=== PATIENT | female | born 1950 | race Caucasian/White ===

== ENCOUNTER 2020-01-03 10:36 | Outpatient (CLI) | payer MEDICARE, SELFPAY ==
--- NOTE | ~2020-01-03 | MR_ITS ---
EXAMINATION: MR shoulder LT wo con DATE: 01/03/2020 11:47 INDICATION: Left shoulder pain TECHNIQUE: Magnetic resonance imaging (MRI) of the left shoulder was performed without intravenous co ntrast. Sequences included axial PD-weighted FS FSE, coronal oblique PD-weighted FS FSE, coronal obli que T2-weighted FS FSE, sagittal PD-weighted FS FSE, and sagittal T1-weighted SE. COMPARISON: None. FINDINGS: Coracoacromial arch: The acromion undersurface is curved in morphology (type II). The coracoacromial ligament is normal. M ild acromioclavicular osteoarthritis. Rotator cuff: Filippo supraspinatus and infraspinatus tendinopathy. There is a predominantly articular sided rotato r cuff tear along the superior and midportion of the middle facet footplate involving the entire supr aspinatus tendon and extending posteriorly to involve the conjoined portion of the anterior infraspin atus tendon. Throughout the majority of the tear this involves between one third and up to one half o f the tendon thickness. There does appear to be a similar involvement of the bursal surface with a ve ry small full-thickness perforation at the anteriormost distal supraspinatus tendon. The teres minor tendon is normal. There is mild fatty atrophy of the supraspinatus and infraspinatus muscle bellies. There is severe tendinopathy of the distal subscapularis tendon. There is a partial-thickness tear in volving a significant portion of the cephalad two thirds of the lesser tuberosity footplate. Tear mar gin along the articular side of the tendon can be seen retracted slightly medial to the level of the rim of the glenoid. The lateral side of the tear either whether directly at the footplate proper with some still attached mehta material is difficult to ascertain as the footplate appears to be partially covered by the subluxed but severely frayed and tendinopathic long head of the biceps tendon. The mor e caudal muscular attachment of the subscapularis tendon along the inferior lesser tuberosity appears to remain intact. There is corresponding moderate fatty atrophy of the cephalad two thirds of the avalos bscapularis muscle belly which relatively spares the caudal third of the muscle belly. Biceps tendon, glenoid labrum and glenohumeral cartilage: Severe tendinopathy and longitudinal split tearing of the long head biceps tendon which is presumed d etailed appears subluxed across the medial rim of the intertubercular groove. The tendon however appe ars to remain contiguous with the glenoid anchor with no clearly defined tear margin appreciated. Adrianna bular appearance and irregular increased intrasubstance signal along the inferior glenoid consistent with likely degenerative tearing. There appear to be a couple tiny para labral cyst at the 5:00 posit ion of the anteroinferior glenoid. The superior and posterior labrum appear relatively spared. Partia l-thickness cartilage loss with relatively smooth chondral surface along the cephalad third of the gl enoid. There appears to be chondral swelling with mild increased cartilage signal at the inferior thi rd but with smooth appearing surface and without discrete fissuring. Persistent partial thickness cho ndral ulceration without degenerative subchondral changes at the humeral head situated between the ap ex and the greater tuberosity. Fluid: Small glenohumeral joint effusion. No loose osteochondral bodies. Synovitis and small amount of fluid in the long head biceps tendon sheath consistent with bicipital tenosynovitis. There is a small-to-m oderate amount of fluid in the subacromial/subdeltoid bursa which could be related to bursitis or dec ompression of fluid from the glenohumeral effusion through the full-thickness supraspinatus tendon pe rforation. Bones: Bone alignment is normal. No fracture or pathologic marrow replacing process. IMPRESSION: 1. Severe subscapularis and moderate supras
== END 2020-01-03 10:37 | disposition home or self-care (01) ==
PROVIDERS: PCP Family Medicine; Visit Provider Orthopaedic Surgery
DX: M75.102 Unspecified rotator cuff tear or rupture of left shoulder, not specified as traumatic (principal); M75.22 Bicipital tendinitis, left shoulder; M75.82 Other shoulder lesions, left shoulder
CPT/HCPCS: 73221

== ENCOUNTER 2020-02-09 09:14 | Emergency (ER) | payer MEDICARE, SELFPAY ==
--- NOTE | ~2020-02-09 | XR_ITS ---
XR knee LT min 4V 02/09/2020 10:11 Indication: Right knee pain Procedure: 4 views right knee Comparison: 10/26/2006 Findings: There is a right total knee arthroplasty. No fracture or traumatic malalignment. Prosthesis well seated. Small knee effusion. Impression: 1: No acute fracture. Reviewed, dictated and finalized at location A. Impression: 1: No acute fracture.
--- NOTE | ~2020-02-09 | CT_ITS ---
EXAMINATION: CT brain wo con DATE: 02/09/2020 10:04 INDICATION: Head injury on Coumadin TECHNIQUE: Computed tomography (CT) of the head was performed without intravenous contrast. Sagittal and coronal reconstructions were performed. The mA was adjusted according to patient size. Iterative reconstruction technique was employed. The dose-length product was 605.33 mGy-cm. COMPARISON: head CT dated 06/24/2019 FINDINGS: Large anterior left frontal scalp hematoma with swelling extending into the preseptal soft tissues at the left orbit. No post septal inflammatory stranding. Bilateral orbits are otherwise unremarkable w ith intact appearing globes and changes of bilateral intraocular lens replacements. No fracture. No a cute intracranial hemorrhage, acute infarction or abnormal extra axial fluid collection. There is mil d scattered white matter hypoattenuation consistent with chronic small vessel ischemic disease. Vent ricles are normal and symmetric. No mass/mass effect. Intracranial calcified cerebral atherosclerosis is noted. The mastoid air cells and middle ear cavities are clear. Mild mucosal thickening in the po sterior right ethmoid sinus. IMPRESSION: 1. Large anterior left frontal scalp hematoma. No fracture or acute intracranial process. 2. Mild scattered white matter hypoattenuation consistent with chronic small vessel ischemic disease. Reviewed, dictated and finalized at location A. IMPRESSION: 1. Large anterior left frontal scalp hematoma. No fracture or acute intracrania l process. 2. Mild scattered white matter hypoattenuation consistent with chronic small ve ssel ischemic disease.
--- NOTE | ~2020-02-09 | CT_ITS ---
EXAMINATION: 1. CT facial & cervical spine wo DATE: 02/09/2020 10:05 INDICATION: All with head injury and hematoma to the left forehead. TECHNIQUE: 1. Computed tomography (CT) of the maxillofacial region and of the cervical spine were performed with out intravenous contrast. Sagittal and coronal reconstructions of both regions were obtained. Automat ed exposure control and iterative reconstruction technique were employed. The dose-length product was 428 mGy-cm. COMPARISON: None. FINDINGS: Maxillofacial CT: Large anterior left frontal scalp hematoma. Comminuted fractures of the left and right nasal bones wi th 1.5 mm left lateral displacement of the left nasal bone fracture and mild leftward angulation of t he right nasal bone fracture. No other fractures identified. Normal alignment at the temporomandibula r joints. Mild preseptal swelling at the left orbit. No post septal inflammatory stranding. Bilateral orbits are otherwise unremarkable with intact appearing globes and changes of bilateral intraocular lens replacements. Mild mucosal thickening the right ethmoid and sphenoid sinuses. Cervical spine CT: Alignment is normal. C5-C6 anterior spinal fusion with interbody bone graft and anterior plate and sc rew fixation. Vertebral body heights are normal. No acute fracture. Moderate disc height loss at C6-C 7 and C7-T1 and mild disc height loss at C2-C3 through C4-C5 and at T1-T2. Cervical soft tissues are unremarkable. Mosaic attenuation at the apices most likely secondary to atelectasis or mild pulmonary edema although differential includes pneumonia. The following disc levels are specifically discussed : C2-C3: Eccentric to the right posterior disc osteophyte complex. There is moderate bilateral uncovert ebral joint osteoarthritis. There is mild right and severe left facet joint osteoarthritis. There is mild left neural foraminal stenosis. There is mild central canal stenosis. C3-C4: Disc is bulging. There is moderate bilateral uncovertebral joint osteoarthritis. There is mild to moderate right and severe left facet joint osteoarthritis. There is mild right and moderate left neural foraminal stenosis. There is mild central canal stenosis. C4-C5: Disc is mildly bulging. There is mild bilateral uncovertebral joint osteoarthritis. There is m ild right and severe left facet joint osteoarthritis. There is mild left neural foraminal stenosis. T here is minimal central canal stenosis. C5-C6: Disc space is fused with posterior endplate and prominent bilateral hypertrophic uncovertebral osteophytes. There is mild right and moderate left facet joint osteoarthritis. There is moderate cristin ateral neural foraminal stenosis. There is mild central canal stenosis. C6-C7: Prominent posterior disc osteophyte complex. There is severe bilateral uncovertebral joint ost eoarthritis. There is moderate bilateral facet joint osteoarthritis. There is mild left and mild to m oderate right neural foraminal stenosis. There is mild central canal stenosis. C7-T1: Small posterior disc osteophyte complex. There is mild bilateral uncovertebral joint osteoarth ritis. There is moderate bilateral facet joint osteoarthritis. There is minimal bilateral neural fora lydia stenosis. There is minimal central canal stenosis. IMPRESSION: 1. Widely displaced and angulated comminuted the lateral nasal bone fractures. 2. Moderate to severe cervical spondylosis with C5-6 instrumented anterior spinal fusion. No acute os seous abnormality. 3. Mosaic attenuation at the apices of lungs which could represent atelectasis, mild pulmonary edema or less likely pneumonia. Reviewed, dictated and finalized at location A.
[2020-02-09 09:19] VITALS: BP 163/119; PULSE 108; RESP 18; TEMP 36.6; O2SAT 97
--- NOTE | 2020-02-09 09:52 | ED.FALL ---
HPI - Fall General Chief Complaint: Fall Stated Complaint: Fall Time Seen by Provider: 02/09/20 09:44 Source: patient Mode of arrival: ambulatory Limitations: no limitations History of Present Illness HPI Narrative: This patient is 69 year old female with history of afib on coumadin who presents for evaluation of head injury. Patient states she tripped causing her to hit head head. She reports epistaxis for left nostril and a forehead hematoma. She denies LOC but she reports nausea and severe headache. She also reports neck pain and left knee pain. She was going to [facility] to get INR checked today. complaint: fall Related Data Home Medications Medication Instructions Recorded Confirmed aspirin 81 mg tablet,delayed 81 mg PO DAILY 07/04/19 01/05/20 release compression socks, medium #1 each 07/04/19 01/05/20 leflunomide 20 mg tablet 20 mg PO DAILY 07/04/19 01/05/20 magnesium oxide 400 mg PO DAILY 07/04/19 01/05/20 nitroglycerin 0.4 mg sublingual 0.4 mg SUBLINGUAL Q5M PRN 07/04/19 01/05/20 tablet budesonide 180 mcg/actuation 2 inhalation INHALATION QAM 07/20/19 01/05/20 breath activated powder inhaler meclizine 25 mg tablet 25 mg PO TID 07/20/19 01/05/20 Allergies Allergy/AdvReac Type Severity Reaction Status Date / Time codeine Allergy Unknown Unknown Verified 02/09/20 09:14 levofloxacin Allergy Unknown Unknown Verified 02/09/20 09:14 lisinopril Allergy Unknown Unknown Verified 02/09/20 09:14 Review of Systems Review of Systems: All systems reviewed & are unremarkable except as noted in HPI and below Constitutional: Constitutional: Denies weakness Eyes: Eyes: Denies change in vision ENT: Denies dizziness and Reports epistaxis Respiratory: Respiratory: Denies cough and Denies dyspnea Gastrointestinal: Gastrointestinal: Denies abdominal pain and Reports nausea Neurologic: Reports headache(s), Denies focal weakness and Denies numbness Hematologic/Lymphatic: Hematologic/Lymphatic: Denies easy bleeding Allergic/Immunologic: Allergic/Immunologic: Denies lip swelling, Denies tongue swelling and Denies wheezing PMFSH Social History Social History Smoking status: Never smoker Alcohol intake: current Gender identity (if verbalized by the patient): Female Exam Narrative: Exam Narrative: GENERAL: Well-appearing, well-nourished, and in no acute distress. HEAD: Normocephalic, left large forehead hematoma EYES: PERRLA and EOMI, conjunctiva clear without discharge EARS: TM's clear bilaterally without erythema or dullness NOSE: Nares clear, no rhinorrhea; dry in left nare but no active bleeding THROAT:Mucous membranes moist, Oropharynx normal without erythema, exudate, peritonsillar swelling or fluctuance NECK: Supple, without lymphadenopathy or mass RESPIRATORY: No respiratory distress, Airway patent, Respirations non-labored, Clear to auscultation without rales, rhonchi or wheeze HEART: Regular rate and rhythm. No murmur heard. Normal peripheral pulses. ABDOMEN: Soft, nontender, nondistended, normal active bowel sounds. No masses. No rebound or guarding, No organomegaly. EXTREMITIES: No edema, normal strength with full range of motion. ecchymosis to left anterior knee, no swelling SKIN: Warm, dry, normal color without rash NEURO: Alert and oriented x3. CN 2-12 grossly intact. No focal deficits. PSYCH: Normal mood and affect. Course Reevaluation(s) Reevaluation #1: I was going to talk to patient about discharge and nursing staff reports she is vomiting. Will order phenergan Date: 02/09/20 Time: 13:38 Reevaluation #2: Patient states she feels better and she is ready for discharge home. I discussed return precautions with and patient given the fact she takes coumadin. Date: 02/09/20 Time: 15:29 Consultations Consultation #1: I Discussed case with Dr. Arreguin who agrees to follow up with patient. Date: 02/09/20 Time: 13:38 V
[2020-02-09] MEDS: ONDANSETRON INJ 4 MG/2 ML VIAL IV PUSH ×2 (10:28→12:35)
[2020-02-09 10:44] LABS: Basophils Absolute Auto 0.1 K/mm3 (0.0-0.1); Eosinophils Absolute Auto 0.6 K/mm3 (0-0.3); Eosinophils Percent Auto 5.3 % (0-4.4); Hematocrit 41.4 % (37.0-47.0); Hemoglobin 13.3 g/dL (12.0-15.0); Immature Granulocyte Absolute 0.05 K/mm3 (0.00-0.031); Immature Granulocyte Percent A 0.5 % (0-0.5); Lymphocytes Absolute Auto 1.17 K/mm3 (0.9-3.2); Lymphocytes Percent Auto 11.3 % (18.3-44.2); Mean Corpuscular HGB Conc 32.1 g/dl (32-36); Mean Corpuscular Hemoglobin 27.7 pg (26-34); Mean Corpuscular Volume 86.1 fl (80-100); Mean Platelet Volume 10.6 fl (7.4-10.4); Monocytes Absolute Auto 1.1 K/mm3 (0.1-0.6); Monocytes Percent Auto 10.5 % (2.6-8.5); Neutrophils Absolute Auto 7.4 K/mm3 (1.3-6.7); Neutrophils Percent Auto 71.4 % (45.5-73.1); Platelet Count Result 262 k/mm3 (150-375); Red Blood Count 4.81 M/mm3 (4.2-5.4); Red Cell Distribution Width 19.8 % (11.5-14.5); White Blood Count 10.3 K/mm3 (4.5-10.0)
[2020-02-09 10:54] LABS: INR 1.9; Prothrombin Time 21.6 Seconds (11.1-14.7)
[2020-02-09 10:57] LABS: Alanine Aminotransferase 19 U/L (4-35); Albumin Level 3.8 g/dL (3.5-5.1); Alkaline Phosphatase 97 U/L (38-126); Aspartate Amino Transferase 38 U/L (14-36); Bilirubin,Total 0.7 mg/dL (0.2-1.3); Blood Urea Nitrogen 16 mg/dL (7-17); Calcium 8.7 mg/dL (8.4-10.2); Carbon Dioxide 29 mmol/L (22-30); Chloride 99 mmol/L (98-107); Estimated CRCL calculation 85 ml/min; Estimated Glomerular Filt Rate > 60; Glucose 164 mg/dL (65-105); Potassium 3.3 mmol/L (3.4-5.0); Sodium 130 mmol/L (137-145)
[2020-02-09] MEDS: HYDROMORPHONE HCL 1 MG/ML INJ 0.5 MG IV PUSH (12:35)
--- NOTE | 2020-02-09 13:30 | PC.NURSE ---
when pt given meal tray pt vomited. phenergan given per order.
[2020-02-09] MEDS: PROMETHAZINE HCL 25 MG/ML AMPUL 12.5 MG IV PUSH (13:50)
[2020-02-09 14:09] VITALS: BP 159/109; PULSE 102; RESP 16; O2SAT 88
[2020-02-09 14:21] VITALS: RESP 16
--- NOTE | 2020-02-09 14:22 | PC.NURSE ---
pt drowsy. pulaw ox decreased to 88% ra. 2l nc placed. as conversing with pt pulse ox increased to lower 90's
[2020-02-09 15:45] VITALS: BP 161/71; PULSE 71; RESP 16
== END 2020-02-09 15:45 | disposition home or self-care (01) ==
PROVIDERS: Emergency Provider General Practice; PCP Family Medicine
DX: S00.83XA Contusion of other part of head, initial encounter (principal); S02.2XXA Fracture of nasal bones, initial encounter for closed fracture; I48.91 Unspecified atrial fibrillation; Z79.01 Long term (current) use of anticoagulants; Z79.82 Long term (current) use of aspirin; M47.812 Spondylosis without myelopathy or radiculopathy, cervical region; Z98.1 Arthrodesis status; R91.8 Other nonspecific abnormal finding of lung field; W01.0XXA Fall on same level from slipping, tripping and stumbling without subsequent striking against object, initial encounter
CPT/HCPCS: 36415; 70450; 70486; 72125; 73564; 80053; 85025; 85610; 85730; 86850; 86900; 86901; 96374; 96375; 96376; 99284; J0131; J1170; J2405; J2550

== ENCOUNTER 2021-03-09 04:08 | Emergency (ER) | payer MEDICARE, SELFPAY ==
[2021-03-09] VITALS (8 sets, daily range): BP systolic 136–149; BP diastolic 70–114; PULSE 61–91; RESP 23–24; TEMP 36.6; O2SAT 94–97
--- NOTE | ~2021-03-09 | XR_ITS ---
EXAMINATION: XR chest 1V portable DATE: 03/09/2021 05:11 INDICATION: Dizziness. TECHNIQUE: A single frontal view of the chest was obtained. COMPARISON: Chest 2 views 07/19/2019, chest CT 06/26/2019 FINDINGS: A calcified right lung nodule is consistent with old granulomatous disease. No pleural effu juan or pneumothorax. The heart size is normal. There are changes of mitral valve replacement. There is a right shoulder arthroplasty. There are changes of anterior fusion procedure in cervical spine. IMPRESSION: 1. No acute cardiopulmonary disease. Reviewed, dictated and finalized at location A.
--- NOTE | 2021-03-09 04:23 | ECG_ITS ---
Measurements Intervals [place] Rate: 62 P: 94 [place]: 194 QRS: -6 QRSD: 94 T: 37 QT: 383 QTc: 389 Interpretive Statements SINUS RHYTHM BASELINE ARTIFACT- II, III, AVF, V3-V6 NORMAL ECG Electronically Signed On 03-09-2021 6:50:01 CDT by Miky Sorensen D.O.
--- NOTE | 2021-03-09 04:50 | ED.GENADULT ---
HPI - General Adult General Chief complaint: Unspecified Stated complaint: Cold sweats while having a BM. Time Seen by Provider: 03/09/21 04:11 Source: RN notes reviewed History of Present Illness HPI narrative: Patient presents emergency department from home for diaphoresis. Patient states she awoke and was laying in bed and felt like she needed to use the restroom. She states that with that she had a tingling in her bilateral arms and upper body states she then went up to use the restroom and as she was using the restroom going both poop and pee she broke out in a cold sweat and again felt tingling in her upper extremities she states that symptoms are now resolved but she came for further evaluation she denies any fevers, chest pain, shortness of breath, abdominal pain nausea vomiting or any other symptoms she denies any unilateral deficits Related Data Home Medications Medication Instructions Recorded Confirmed aspirin 81 mg tablet,delayed 81 mg PO DAILY 07/04/19 02/11/21 release leflunomide 20 mg tablet 20 mg PO DAILY 07/04/19 02/11/21 magnesium oxide 400 mg PO DAILY 07/04/19 02/11/21 nitroglycerin 0.4 mg sublingual 0.4 mg SUBLINGUAL Q5M PRN 07/04/19 02/11/21 tablet pramipexole 0.5 mg tablet 0.5 mg PO DAILY tablet 01/31/21 02/11/21 famotidine 03/09/21 Allergies Allergy/AdvReac Type Severity Reaction Status Date / Time codeine Allergy Unknown Unknown Verified 03/09/21 04:17 levofloxacin Allergy Unknown Unknown Verified 03/09/21 04:17 lisinopril Allergy Unknown Unknown Verified 03/09/21 04:17 Review of Systems Review of Systems: Narrative: Gen.: Denies fevers reports diaphoresis Eyes: Denies eye pain or visual change ENT: Denies congestion Respiratory: Denies shortness of breath or cough CV: Denies chest pain or palpitations GI: Denies abdominal pain nausea, emesis or diarrhea denies burning, urgency, frequency or hematuria Musculoskeletal: Denies back pain or muscle pain Neuro: Denies numbness, or weakness. 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 COVID-19 Dyslipidemia Edema of both legs Essential hypertension Facial trauma Gastro-esophageal reflux disease without esophagitis Multifocal atrial tachycardia Nasal fracture Neck muscle spasm Need for pneumococcal vaccination Pneumonia Thrush, oral Surgical History Surgical History H/O mitral valve repair H/O mitral valve repair History of cataract extraction Left History of hand surgery trigger finger, thumb History of shoulder surgery Personal history of spine surgery discetomy, spinal fusion Family History Family History Mother Cerebrovascular accident Family history of diabetes mellitus in first degree relative Family history of coronary artery disease Acute myocardial infarction Father Carcinoma of colon Family history of lung cancer Family history of malignant neoplasm of esophagus Sibling Liver disease Liver transplant recipient Other Family history of malignant neoplasm of brain Family history of malignant neoplasm of stomach Social History Social History Second hand tobacco smoke exposure: Yes Alcohol intake: current Substance use: never Substance use type: does not use 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
[2021-03-09 05:00] LABS: Basophils Absolute Auto 0.1 K/mm3 (0.0-0.1); Basophils Percent Auto 1.7 % (0.2-1.2); Eosinophils Absolute Auto 0.3 K/mm3 (0-0.3); Eosinophils Percent Auto 5.4 % (0-4.4); Hematocrit 39.1 % (37.0-47.0); Hemoglobin 11.9 g/dL (12.0-15.0); Immature Granulocyte Absolute 0.02 K/mm3 (0.00-0.031); Immature Granulocyte Percent A 0.4 % (0-0.5); Lymphocytes Absolute Auto 1.65 K/mm3 (0.9-3.2); Lymphocytes Percent Auto 31.9 % (18.3-44.2); Mean Corpuscular HGB Conc 30.4 g/dl (32-36); Mean Corpuscular Hemoglobin 27.7 pg (26-34); Mean Corpuscular Volume 91.1 fl (80-100); Mean Platelet Volume 12.1 fl (7.4-10.4); Monocytes Absolute Auto 0.9 K/mm3 (0.1-0.6); Monocytes Percent Auto 16.8 % (2.6-8.5); Neutrophils Absolute Auto 2.3 K/mm3 (1.3-6.7); Neutrophils Percent Auto 43.8 % (45.5-73.1); Platelet Count Result 300 k/mm3 (150-375); Red Blood Count 4.29 M/mm3 (4.2-5.4); White Blood Count 5.2 K/mm3 (4.5-10.0)
[2021-03-09 05:03] LABS: Add Urine Microscopic? YES; Appearance Urine Clear (Clear); Bilirubin Urine Negative (Negative); Blood Urine Negative (Negative); Color Urine Yellow (Yellow); Glucose Urine UA Negative (Negative); Ketones Urine Negative (Negative); Leukocyte Esterase Ur 1+ LEU/UL (Negative); Mucus Urine Rare /lpf; Nitrate Urine Negative (Negative); Protein Urine Negative (Negative); RBC Urine 0-2 /hpf (0-2); Specific Grav Ur 1.019 (1.001-1.035); Squamous Epithelial Cell Urine Moderate /hpf (Few); Transitional Epi Cells Urine Rare /hpf (None Seen); Urobilinogen Urine Negative mg/dL (<2.0)
[2021-03-09 05:07] LABS: Lipase 96 U/L (23-300)
[2021-03-09 05:09] LABS: Alanine Aminotransferase 20 U/L (4-35); Albumin Level 3.9 g/dL (3.5-5.1); Alkaline Phosphatase 48 U/L (38-126); Anion Gap 7 mmol/L (8-16); Aspartate Amino Transferase 37 U/L (14-36); Bilirubin,Total 0.5 mg/dL (0.2-1.3); Blood Urea Nitrogen 19 mg/dL (7-17); Calcium 9.5 mg/dL (8.4-10.2); Carbon Dioxide 24 mmol/L (22-30); Chloride 104 mmol/L (98-107); Estimated CRCL calculation 55 ml/min; Estimated Glomerular Filt Rate > 60; Glucose 109 mg/dL (65-105); Potassium 3.9 mmol/L (3.4-5.0); Sodium 135 mmol/L (137-145)
[2021-03-09 05:20] LABS: Troponin I < 0.012 ng/mL (0.000-0.034)
[2021-03-09] MEDS: NITROFURANTOIN MONOHYD MACROCR 100 MG CAP PO (06:59)
[2021-03-09 07:07] LABS: INR 1.5; Partial Thromboplastin Time 29.6 SECONDS (22.3-36.8); Prothrombin Time 18.2 Seconds (11.1-14.7)
[2021-03-09 07:20] LABS: Troponin I < 0.012 ng/mL (0.000-0.034)
== END 2021-03-09 07:32 | disposition home or self-care (01) ==
PROVIDERS: Emergency Provider Emergency Medicine; PCP Family Medicine
DX: R55 Syncope and collapse (principal); N39.0 Urinary tract infection, site not specified; J44.9 Chronic obstructive pulmonary disease, unspecified; I25.719 Atherosclerosis of autologous vein coronary artery bypass graft(s) with unspecified angina pectoris; E78.5 Hyperlipidemia, unspecified; I10 Essential (primary) hypertension; K21.9 Gastro-esophageal reflux disease without esophagitis; M47.812 Spondylosis without myelopathy or radiculopathy, cervical region; Z86.16 Personal history of COVID-19; Z87.01 Personal history of pneumonia (recurrent); Z79.82 Long term (current) use of aspirin; Z98.42 Cataract extraction status, left eye; Z98.1 Arthrodesis status; Z77.22 Contact with and (suspected) exposure to environmental tobacco smoke (acute) (chronic)
CPT/HCPCS: 36415; 71045; 80053; 81001; 83690; 84484; 85025; 85610; 85730; 87086; 87088; 93005; 99284; A9270

== ENCOUNTER 2021-06-26 09:27 | Outpatient (CLI) | payer MEDICARE, SELFPAY ==
[2021-06-26 10:33] LABS: INR 2.4; Prothrombin Time 25.7 Seconds (11.1-14.7)
[2021-06-26 10:35] LABS: Cholesterol 175 mg/dL (0-200); HDL Direct 32 mg/dL; Triglycerides 358 mg/dL (<150)
[2021-06-26 10:45] LABS: LDL Cholesterol Direct 84 mg/dL
[2021-06-30 16:34] LABS: ANCA Screen Negative (Negative); Myeloperoxidase Ab <1.0 AI (<1.0); Proteinase-3 Ab <1.0 AI (<1.0); S cerevisiae Ab (IgA) 3.5 U (<=20.0); S cerevisiae Ab (IgG) 4.4 U (<=20.0)
== END 2021-06-26 09:28 | disposition home or self-care (01) ==
PROVIDERS: PCP Family Medicine; Referring Provider Internal Medicine Gastroenterology; Visit Provider Internal Medicine Cardiovascular Disease
DX: E78.5 Hyperlipidemia, unspecified (principal); R16.0 Hepatomegaly, not elsewhere classified; K52.9 Noninfective gastroenteritis and colitis, unspecified
CPT/HCPCS: 36415; 80061; 85610; 86021; 86671

== ENCOUNTER → 2021-06-27 11:07 | Outpatient (CLI) | payer MEDICARE, SELFPAY ==
--- NOTE | ~2021-06-27 | MM_ITS ---
EXAMINATION: MM screening peter BI w cady HISTORY: Screening mammogram TECHNIQUE: Craniocaudal and mediolateral oblique 3-D tomosynthesis images were obtained and synthetic 2-D images were generated. CAD analysis was submitted and interpreted. COMPARISON: 01/13/2018, 08/25/2014 bilateral digital screening mammogram examinations BREAST PARENCHYMAL COMPOSITION: There are scattered areas of fibroglandular density. FINDINGS: There is a focal area of asymmetry in the outer posterior left breast (CC Tomosynthesis sherri ge 30/59). Otherwise there is no evidence of suspicious mass, calcification, or architectural distortion to sugg est malignancy in either breast. There has been no other suspicious interval change. IMPRESSION: 1. Focal asymmetry in posterior outer left breast on craniocaudal view 2. Diagnostic left mammogram is recommended, with ultrasound if required BI-RADS Category 0: Incomplete: Needs additional imaging evaluation. Reviewed, dictated and finalized at location A.
== END ==
PROVIDERS: PCP Family Medicine; Visit Provider Family Medicine
DX: Z12.31 Encounter for screening mammogram for malignant neoplasm of breast (principal); R92.8 Other abnormal and inconclusive findings on diagnostic imaging of breast
CPT/HCPCS: 77063; 77067

== ENCOUNTER → 2021-08-05 14:23 | Outpatient (CLI) | payer MEDICARE, SELFPAY ==
--- NOTE | ~2021-08-05 | MMUS_ITS ---
EXAMINATION: MM diagnostic peter LT w cady, US breast LT limited HISTORY: Follow-up left breast asymmetry TECHNIQUE: Additional 3-D tomosynthesis images of the left breast were performed and synthetic 2-D im ages were generated. CAD analysis was submitted and interpreted. High resolution Limited left breast ultrasound was performed. COMPARISON: Comparison to multiple prior studies sequentially, with oldest reviewed study dated 08/01. BREAST PARENCHYMAL COMPOSITION: Breast composed of scattered areas of fibroglandular density. FINDINGS: MAMMOGRAPHIC FINDINGS: There are no suspicious masses, calcifications or architectural distortion in the left breast to sugg est malignancy. ULTRASOUND: Limited left breast ultrasound: Normal heterogeneous echotexture without focal mass. IMPRESSION: 1. No evidence for malignancy in the left breast. 2. Routine yearly screening mammogram and regular clinical breast examination are recommended. BI-RADS Category 1: Negative Reviewed, dictated and finalized at location A. 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 No evidence for malignancy in the left breast. 2. Routine yearly screening mammogram and regular clinical breast examination a re recommended. BI-RADS Category 1: Negative
== END ==
PROVIDERS: PCP Family Medicine; Visit Provider Nurse Practitioner Family
DX: R92.8 Other abnormal and inconclusive findings on diagnostic imaging of breast (principal)
CPT/HCPCS: 76642; 77061; 77065; G0279

== ENCOUNTER 2021-08-14 00:21 | Day surgery (SDC) | payer MEDICARE, SELFPAY ==
[2021-08-06 14:21] VITALS: BMI 34.0
--- NOTE | 2021-08-13 09:06 | PM.HPGS ---
History of Present Illness History of Present Illness Consent: Risks, benefits, and alternatives have been discussed and questions answered. Patient agrees to proceed with procedure. Chief complaint: diarrhea Narrative: Laura Clifford is a 71 year old female-- beginning in December she started having diarrhea. She has anywhere from 2-8 bowel movements per day. She also had some rectal bleeding. [facility] who told her that she did not have bleeding hemorrhoids and they referred her to the colorectal surgery group at [facility]. She saw Dr. Guevara, who diagnosed her with fissures and prescribed a topical diltiazem cream. Unfortunately he did not do anything about the diarrhea so that she saw a Dr. [facility] in [place] he told her that she needs to take much much more fiber. She did not feel that he was very helpful. She subsequently went back to her primary care physician who prescribed Lomotil. She is only taking 1 at bedtime sometimes a 2nd and this helps most the time. She is, however concerned about the possibility of having inflammatory bowel disease. She did have a colonoscopy a little over 3 years ago and at that time biopsies were negative for microscopic colitis. I did obtain markers for inflammatory bowel disease which were negative. 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 COVID-19 Dyslipidemia Edema of both legs Essential hypertension Exocrine pancreatic insufficiency Facial trauma Gastro-esophageal reflux disease without esophagitis Multifocal atrial tachycardia Nasal fracture Neck muscle spasm Need for pneumococcal vaccination Pneumonia Thrush, oral Surgical History Surgical History H/O mitral valve repair H/O mitral valve repair History of cataract extraction Left History of hand surgery trigger finger, thumb History of shoulder surgery Personal history of spine surgery discetomy, spinal fusion Family History Family History Mother Cerebrovascular accident Family history of diabetes mellitus in first degree relative Family history of coronary artery disease Acute myocardial infarction Father Carcinoma of colon Family history of lung cancer Family history of malignant neoplasm of esophagus Sibling Liver disease Liver transplant recipient Other Family history of malignant neoplasm of brain Family history of malignant neoplasm of stomach Social History Social History Smoking status: Never smoker Second hand tobacco smoke exposure: Yes Alcohol intake: current Substance use: never Substance use type: does not use Living arrangements: with family 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
[2021-08-14 06:48] VITALS: BP 136/67; PULSE 87; RESP 18; TEMP 36.6; O2SAT 93
[2021-08-14] MEDS: LACTATED RINGERS 1,000 ML 150 ML IV CONT (06:51)
--- NOTE | 2021-08-14 07:19 | WPDANESEPPF ---
Anes - Initial Pre Proc Eval Procedure: Operation Date: 08/14/21 08:00 Proposed Procedures p Colonoscopy - Andrzej Masters MD Date/Time: 08/14/21 07:19 Surgeon: Andrzej Masters MD Pre Op Diagnosis: diarrhea Patient Data Age: 71 Gender: F Height: 1.6 m Weight: 85.2 kg Last Vital Signs Temp 36.6 C 08/14/21 06:48 Pulse 87 08/14/21 06:48 Resp 18 08/14/21 06:48 BP 136/67 08/14/21 06:48 Pulse Ox 93 08/14/21 06:48 Allergies Allergy/AdvReac Type Severity Reaction Status Date / Time codeine Allergy Unknown Unknown Verified 08/14/21 06:46 levofloxacin Allergy Unknown Unknown Verified 08/14/21 06:46 lisinopril Allergy Unknown Unknown Verified 08/14/21 06:46 Home Medications Medication Instructions Recorded Confirmed Type aspirin 81 mg tablet,delayed 81 mg PO DAILY 07/04/19 08/14/21 History release leflunomide 20 mg tablet 20 mg PO DAILY 07/04/19 08/14/21 History magnesium oxide 400 mg PO DAILY 07/04/19 08/14/21 History nitroglycerin 0.4 mg sublingual 0.4 mg SUBLINGUAL Q5M PRN 07/04/19 08/14/21 History tablet atorvastatin 80 mg tablet 80 mg PO DAILY #90 tablet 08/27/20 08/14/21 Rx warfarin 1 mg tablet See Rx Instructions .ROUTE 12/02/20 08/14/21 Rx .COMPLEX #60 tablet pramipexole 0.5 mg tablet 0.5 mg PO DAILY tablet 01/31/21 08/14/21 History pantoprazole 40 mg tablet,delayed 40 mg PO QAM #90 tablet 03/31/21 08/14/21 Rx release tiotropium 2.5 mcg-olodaterol 2.5 2 puff INHALATION DAILY #4 gm 04/16/21 08/14/21 Rx mcg/actuation mist for inhalation famotidine 20 mg tablet 20 mg PO DAILY #90 tablet 06/14/21 08/14/21 Rx cholecalciferol (vitamin D3) 25 mcg PO DAILY 08/06/21 08/14/21 History [Vitamin D3] diphenoxylate-atropine [Lomotil] 1 tablet PO TID PRN 08/06/21 08/14/21 History fenofibrate 160 mg PO DAILY 08/06/21 08/14/21 History furosemide 40 mg PO 3XW 08/06/21 08/14/21 History losartan 50 mg PO DAILY 08/06/21 08/14/21 History meclizine 25 mg PO TID PRN 08/06/21 08/14/21 History metoprolol tartrate 25 mg PO BID 08/06/21 08/14/21 History niacin 500 mg PO DAILY 08/06/21 08/14/21 History potassium chloride 20 meq PO DAILY 08/06/21 08/14/21 History sotalol 80 mg PO BID 08/06/21 08/14/21 History vitamin A 10,000 unit PO DAILY 08/06/21 08/14/21 History Patient hx anesthesia problems: none Family hx anesthesia problems: none Results Review: All pre-operative results and documents have been reviewed as part of the pre-operative evaluation. 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 COVID-19 Dyslipidemia Edema of both legs Essential hypertension Exocrine pancreatic insufficiency Facial trauma Gastro-esophageal reflux disease without esophagitis Multifocal atrial tachycardia Nasal fracture Neck muscle spasm Need for pneumococcal vaccination Pneumonia Thrush, oral Surgical History Surgical History H/O mitral valve repair H/O mitral valve repair History of cataract extraction Left History of hand surgery trigger finger, thumb History of shoulder surgery Personal history of spine surgery discetomy, spinal fusion Family History Family History Mother Cerebrovascular accident Family history of diabetes mellitus in first degree relative Family history of coronary artery disease Acute myocardial infarction Father Carcinoma of colon Family history of lung cancer Family history of malignant neoplasm of esophagus Sibling Liver disease Liver transpla
[2021-08-14 08:16] VITALS: BP 91/43; PULSE 80; RESP 18; O2SAT 96
[2021-08-14 08:26] VITALS: BP 96/45; PULSE 72; RESP 18; O2SAT 98
[2021-08-14 08:36] VITALS: BP 116/61; PULSE 74; RESP 20; O2SAT 98
== END 2021-08-14 08:52 | disposition home or self-care (01) ==
PROVIDERS: PCP Family Medicine; Visit Provider Internal Medicine Gastroenterology
PROC: 0DJD8ZZ Inspection of Lower Intestinal Tract, Via Natural or Artificial Opening Endoscopic (ICD-10-PCS; CPT 45378; principal; 2021-08-14 08:00)
DX: K52.9 Noninfective gastroenteritis and colitis, unspecified (principal); M47.812 Spondylosis without myelopathy or radiculopathy, cervical region; J44.9 Chronic obstructive pulmonary disease, unspecified; I25.719 Atherosclerosis of autologous vein coronary artery bypass graft(s) with unspecified angina pectoris; E78.5 Hyperlipidemia, unspecified; I10 Essential (primary) hypertension; K86.81 Exocrine pancreatic insufficiency; K21.9 Gastro-esophageal reflux disease without esophagitis; I47.1 Supraventricular tachycardia; Z98.1 Arthrodesis status; Z79.01 Long term (current) use of anticoagulants; Z79.82 Long term (current) use of aspirin
CPT/HCPCS: 45380; 88305; J2704; J7120

== ENCOUNTER 2021-12-01 12:20 | Emergency (ER) | payer MEDICARE, SELFPAY ==
--- NOTE | ~2021-12-01 | XR_ITS ---
EXAMINATION: XR chest 2V DATE: 12/01/2021 13:21 INDICATION: Weakness TECHNIQUE: AP and lateral views of the chest are obtained. COMPARISON: 03/09/2021 FINDINGS: The heart size is normal. There are mild diffuse opacities throughout the lungs. No pleural effusion or pneumothorax is identified. There are changes of cardiac valve surgery. There is a right shoulder arthroplasty. Changes of anterior fusion procedure are noted in the cervical spine. IMPRESSION: 1. Mild diffuse opacities which may reflect atelectasis or possibly mild pulmonary edema. Reviewed, dictated and finalized at location A. IMPRESSION: 1. Mild diffuse opacities which may reflect atelectasis or possibly mild pulmon manuel edema.
[2021-12-01 12:27] VITALS: BP 120/61; PULSE 99; RESP 20; TEMP 36.6; O2SAT 95
[2021-12-01 12:32] VITALS: PULSE 98; RESP 24; O2SAT 95
[2021-12-01 12:45] VITALS: PULSE 85; RESP 27; O2SAT 98
--- NOTE | 2021-12-01 12:49 | ECG_ITS ---
Measurements Intervals [place] Rate: 94 P: 70 CO: 223 QRS: -11 QRSD: 88 T: 16 QT: 338 QTc: 423 Interpretive Statements SINUS RHYTHM WITH FIRST DEGREE AV BLOCK BORDERLINE ECG COMPARED TO ECG 03/09/2021 04:36:34 FIRST DEGREE AV BLOCK NOW PRESENT Electronically Signed On 12-01-2021 16:32:42 CDT by Luciano Gibson M.D.
[2021-12-01 12:56] LABS: Basophils Absolute Auto 0.1 K/mm3 (0.0-0.1); Basophils Percent Auto 1.2 % (0.2-1.2); Eosinophils Absolute Auto 0.3 K/mm3 (0-0.3); Eosinophils Percent Auto 4.5 % (0-4.4); Hematocrit 32.8 % (37.0-47.0); Hemoglobin 10.4 g/dL (12.0-15.0); Immature Granulocyte Absolute 0.06 K/mm3 (0.00-0.031); Immature Granulocyte Percent A 0.8 % (0-0.5); Lymphocytes Absolute Auto 1.16 K/mm3 (0.9-3.2); Lymphocytes Percent Auto 15.2 % (18.3-44.2); Mean Corpuscular HGB Conc 31.7 g/dl (32-36); Mean Corpuscular Hemoglobin 29.8 pg (26-34); Mean Platelet Volume 11.7 fl (7.4-10.4); Monocytes Absolute Auto 1.1 K/mm3 (0.1-0.6); Monocytes Percent Auto 14.8 % (2.6-8.5); Neutrophils Absolute Auto 4.9 K/mm3 (1.3-6.7); Neutrophils Percent Auto 63.5 % (45.5-73.1); Platelet Count Result 277 k/mm3 (150-375); Red Blood Count 3.49 M/mm3 (4.2-5.4); Red Cell Distribution Width 18.4 % (11.5-14.5); White Blood Count 7.6 K/mm3 (4.5-10.0)
[2021-12-01 13:00] VITALS: PULSE 87; RESP 22; O2SAT 95
[2021-12-01 13:08] LABS: Alanine Aminotransferase 108 U/L (4-35); Albumin Level 3.1 g/dL (3.5-5.1); Alkaline Phosphatase 59 U/L (38-126); Anion Gap 1 mmol/L (8-16); Aspartate Amino Transferase 170 U/L (14-36); Blood Urea Nitrogen 19 mg/dL (7-17); Calcium 8.4 mg/dL (8.4-10.2); Carbon Dioxide 26 mmol/L (22-30); Chloride 107 mmol/L (98-107); Estimated CRCL calculation 62 ml/min; Estimated Glomerular Filt Rate > 60; Glucose 111 mg/dL (65-110); Potassium 3.5 mmol/L (3.4-5.0); Sodium 134 mmol/L (137-145)
--- NOTE | 2021-12-01 13:15 | PC.NURSE ---
pt to Xray at this time.
[2021-12-01 13:41] LABS: CRP 1.6 mg/dL (<1.0)
[2021-12-01 13:47] LABS: Erythrocyte Sedimentation Rate 52 mm/hr (0-20)
[2021-12-01 13:50] LABS: Add Urine Microscopic? YES; Appearance Urine Clear (Clear); Bilirubin Urine Negative (Negative); Blood Urine 2+ (Negative); Color Urine Yellow (Yellow); Glucose Urine UA Negative (Negative); Ketones Urine Negative (Negative); Leukocyte Esterase Ur Trace LEU/UL (Negative); Mucus Urine Rare /lpf; Nitrate Urine Negative (Negative); Protein Urine Negative (Negative); RBC Urine 0-2 /hpf (0-2); Specific Grav Ur 1.023 (1.001-1.035); Squamous Epithelial Cell Urine Moderate /hpf (Few); Urobilinogen Urine Negative mg/dL (<2.0)
[2021-12-01 13:50] LABS: Creatine Kinase 2616 U/L (30-135)
--- NOTE | 2021-12-01 14:27 | ED.WEAKNESS ---
HPI - Weakness General Chief complaint: Weakness Stated complaint: my muscles are like rocks Time Seen by Provider: 12/01/21 12:45 History of Present Illness HPI Narrative: Patient is 71-year-old female with a history of rheumatoid arthritis, hypertension, hyperlipidemia, vitamin D deficiency who presents for evaluation of progressive, symmetric, weakness over the past 2 weeks. Patient states she first noticed weakness when she was ambulating and felt herself tripping over her feet. Since then the weakness has slowly spread of her bilateral legs and now she feels in her arms as well. She most notices the weakness when she tries to rise from a chair, which is also accompanied by pain in her hip girdle region. Additionally reports aching pains in her bilateral shoulders and hips while at rest. She denies any numbness, tingling, difficulty breathing, chest pain, headaches, loss of consciousness, confusion, nausea, vomiting, jaw pain or visual changes. She did have an upper respiratory infection about 2 weeks ago that was treated with a course of antibiotics with good relief. No recent camping trips or tick bites. Related Data Home Medications Medication Instructions Recorded Confirmed aspirin 81 mg tablet,delayed 81 mg PO DAILY 07/04/19 08/14/21 release leflunomide 20 mg tablet 20 mg PO DAILY 07/04/19 08/14/21 magnesium oxide 400 mg PO DAILY 07/04/19 08/14/21 nitroglycerin 0.4 mg sublingual 0.4 mg SUBLINGUAL Q5M PRN 07/04/19 08/14/21 tablet pramipexole 0.5 mg tablet 0.5 mg PO DAILY tablet 01/31/21 08/14/21 cholecalciferol (vitamin D3) 25 mcg PO DAILY 08/06/21 08/14/21 [Vitamin D3] fenofibrate 160 mg PO DAILY 08/06/21 08/14/21 furosemide 40 mg PO 3XW 08/06/21 08/14/21 losartan 50 mg PO DAILY 08/06/21 08/14/21 meclizine 25 mg PO TID PRN 08/06/21 08/14/21 metoprolol tartrate 25 mg PO BID 08/06/21 08/14/21 niacin 500 mg PO DAILY 08/06/21 08/14/21 potassium chloride 20 meq PO DAILY 08/06/21 08/14/21 vitamin A 10,000 unit PO DAILY 08/06/21 08/14/21 Allergies Allergy/AdvReac Type Severity Reaction Status Date / Time codeine Allergy Unknown Unknown Verified 08/14/21 06:46 levofloxacin Allergy Unknown Unknown Verified 08/14/21 06:46 lisinopril Allergy Unknown Unknown Verified 08/14/21 06:46 [facility] Past Medical History Medical History BMI 33.0-33.9,adult BMI 34.0-34.9,adult BMI 36.0-36.9,adult BMI 37.0-37.9, adult BMI over 35 Cervical arthritis Chest pain at rest Chronic diarrhea Chronic obstructive pulmonary disease, unspecified COPD (chronic obstructive pulmonary disease) 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 COVID-19 Dyslipidemia Edema of both legs Essential hypertension Exocrine pancreatic insufficiency Facial trauma Gastro-esophageal reflux disease without esophagitis Multifocal atrial tachycardia Nasal fracture Neck muscle spasm Need for pneumococcal vaccination Pneumonia Thrush, oral Surgical History Surgical History H/O mitral valve repair H/O mitral valve repair History of cataract extraction Left History of hand surgery trigger finger, thumb History of shoulder surgery Personal history of spine surgery discetomy, spinal fusion Family History Family History Mother Cerebrovascular accident Family history of diabetes mellitus in first degree relative Family history of coronary artery disease Acute myocardial infarction Father Carcinoma of colon Family history of lung cancer Family history of malignant neoplasm of esophagus Sibling Liver disease Liver transplant recipient Other Family history of malignant neoplasm of brain Family history of malignant neoplasm of stomach Social History Social History
[2021-12-01 16:01] VITALS: BP 129/82; PULSE 78; RESP 18; O2SAT 97
== END 2021-12-01 16:03 | disposition home or self-care (01) ==
PROVIDERS: Physician Assistant; Emergency Provider Emergency Medicine; PCP Family Medicine
DX: M62.81 Muscle weakness (generalized) (principal); M06.9 Rheumatoid arthritis, unspecified; I10 Essential (primary) hypertension; E78.5 Hyperlipidemia, unspecified; J44.9 Chronic obstructive pulmonary disease, unspecified; I25.719 Atherosclerosis of autologous vein coronary artery bypass graft(s) with unspecified angina pectoris; E55.9 Vitamin D deficiency, unspecified; K21.9 Gastro-esophageal reflux disease without esophagitis; Z86.16 Personal history of COVID-19; Z87.01 Personal history of pneumonia (recurrent); Z79.82 Long term (current) use of aspirin; Z98.42 Cataract extraction status, left eye; Z98.1 Arthrodesis status; Z77.22 Contact with and (suspected) exposure to environmental tobacco smoke (acute) (chronic); I44.0 Atrioventricular block, first degree
CPT/HCPCS: 36415; 71046; 80053; 81001; 82550; 85025; 85652; 86140; 93005; 99283

== ENCOUNTER 2022-01-07 10:15 | Outpatient (CLI) | payer MEDICARE, SELFPAY ==
[2022-01-11 14:04] LABS: Albumin 3.7 g/dL (3.8-4.8); Alpha 1 Globulin 0.3 g/dL (0.2-0.3); Alpha 2 Globulin 0.9 g/dL (0.5-0.9); Beta 1 Globulin 0.4 g/dL (0.4-0.6); Gamma Globulin 0.5 g/dL (0.8-1.7); Interpretation Consistent with; Protein, Total 6.1 g/dL (6.1-8.1)
== END 2022-01-07 10:16 | disposition home or self-care (01) ==
PROVIDERS: PCP Family Medicine; Visit Provider Family Medicine
DX: R80.1 Persistent proteinuria, unspecified (principal)
CPT/HCPCS: 36415; 84155; 84165

== ENCOUNTER → 2022-01-08 14:56 | Outpatient (CLI) | payer MEDICARE, SELFPAY ==
--- NOTE | ~2022-01-08 | MR_ITS ---
EXAMINATION: MR brain/brain stem wo con DATE: 01/08/2022 15:55 INDICATION: Anesthesia of skin. TECHNIQUE: Magnetic resonance imaging (MRI) of the brain and brainstem was performed without intraven ous contrast. COMPARISON: None. FINDINGS: There are scattered areas of nonspecific increased T2-weighted signal intensity in the cere bral white matter and olivia. There is no intracranial hemorrhage, acute infarction, or abnormal intrac ranial mass lesion. The ventricles are normal in size. The mastoid air cells are normal. There is mil d mucosal thickening in the ethmoid sinuses. There are likely changes of ocular lens replacement surg eries. IMPRESSION: 1. Moderate nonspecific cerebral white matter disease and pontine disease, which likely represents ch ronic small vessel ischemic disease. Reviewed, dictated and finalized at location A. IMPRESSION: 1. Moderate nonspecific cerebral white matter disease and pontine disease, whic h likely represents chronic small vessel ischemic disease.
== END ==
PROVIDERS: PCP Family Medicine; Visit Provider Family Medicine
DX: R20.0 Anesthesia of skin (principal)
CPT/HCPCS: 70551

== ENCOUNTER 2022-02-04 11:53 | Outpatient (CLI) | payer MEDICARE, SELFPAY ==
[2022-02-04 12:23] LABS: Basophils Absolute Auto 0.1 K/mm3 (0.0-0.1); Basophils Percent Auto 1.3 % (0.2-1.2); Eosinophils Absolute Auto 0.2 K/mm3 (0-0.3); Eosinophils Percent Auto 2.3 % (0-4.4); Hematocrit 43.2 % (37.0-47.0); Hemoglobin 13.4 g/dL (12.0-15.0); Immature Granulocyte Percent A 2.1 % (0-0.5); Immature Reticulocyte Fraction 20.2 % (3.0-15.9); Lymphocytes Percent Auto 23.1 % (18.3-44.2); Mean Corpuscular Hemoglobin 30.3 pg (26-34); Mean Corpuscular Volume 97.7 fl (80-100); Mean Platelet Volume 11.1 fl (7.4-10.4); Monocytes Absolute Auto 1.1 K/mm3 (0.1-0.6); Monocytes Percent Auto 11.5 % (2.6-8.5); Neutrophils Absolute Auto 5.7 K/mm3 (1.3-6.7); Neutrophils Percent Auto 59.7 % (45.5-73.1); Nucleated Red Blood Cells Perc 0.2 % (0.0-0.2); Red Blood Count 4.42 M/mm3 (4.2-5.4); Red Cell Distribution Width 17.4 % (11.5-14.5); Reticulocyte Hemoglobin Conten 33.5 pg (28.2-35.7); Reticulocyte Percent 2.46 % (0.7-4.3); Reticulocytes Absolute 0.11 B/L (32.2-175.7); White Blood Count 9.5 K/mm3 (4.5-10.0)
[2022-02-04 12:27] LABS: Immature Platelet Fraction Pct 4.5 % (0.9-11.2); Platelet Count Result 253 k/mm3 (150-375)
[2022-02-04 12:57] LABS: Alanine Aminotransferase 43 U/L (6-35); Albumin Level 3.4 g/dL (3.5-5.1); Alkaline Phosphatase 89 U/L (38-126); Anion Gap 1 mmol/L (8-16); Aspartate Amino Transferase 34 U/L (14-36); Bilirubin,Total 0.4 mg/dL (0.2-1.3); Blood Urea Nitrogen 18 mg/dL (7-17); Calcium 8.7 mg/dL (8.4-10.2); Carbon Dioxide 31 mmol/L (22-30); Chloride 101 mmol/L (98-107); Estimated Glomerular Filt Rate > 60; Glucose 147 mg/dL (65-110); Lactate Dehydrogenase 968 U/L (313-618); Potassium 3.5 mmol/L (3.4-5.0); Sodium 133 mmol/L (137-145)
[2022-02-04 14:04] LABS: Folic Acid 8.6 ng/mL (2.76->20)
[2022-02-04 16:00] LABS: Iron 68 ug/dL (37-170)
[2022-02-04 16:10] LABS: Percent Iron Saturation 18 % (20-50)
[2022-02-08 12:45] LABS: Methylmalonic Acid 263 nmol/L (87-318)
[2022-02-08 14:01] LABS: Soluble Transferrin Receptor 3.58 mg/L (0.76-1.76)
== END 2022-02-04 11:54 | disposition home or self-care (01) ==
LOC: ANHLAB 11:54
PROVIDERS: PCP Family Medicine; Visit Provider Internal Medicine Hematology & Oncology
DX: D64.9 Anemia, unspecified (principal)
CPT/HCPCS: 36415; 80053; 82607; 82728; 82746; 83540; 83550; 83615; 83921; 84238; 84443; 85025; 85046; 85055

== ENCOUNTER 2022-02-13 10:10 | Outpatient (CLI) | payer MEDICARE, SELFPAY ==
[2022-02-13 10:35] LABS: Hematocrit 42.1 % (37.0-47.0); Hemoglobin 12.9 g/dL (12.0-15.0); Mean Corpuscular HGB Conc 30.6 g/dl (32-36); Mean Corpuscular Volume 97.9 fl (80-100); Mean Platelet Volume 10.9 fl (7.4-10.4); Platelet Count Result 288 k/mm3 (150-375); Red Cell Distribution Width 17.1 % (11.5-14.5); White Blood Count 9.2 K/mm3 (4.5-10.0)
[2022-02-13 10:48] LABS: Anion Gap 0 mmol/L (8-16); Blood Urea Nitrogen 23 mg/dL (7-17); Carbon Dioxide 33 mmol/L (22-30); Chloride 102 mmol/L (98-107); Estimated Glomerular Filt Rate > 60; Glucose 175 mg/dL (65-110); Potassium 3.5 mmol/L (3.4-5.0); Sodium 135 mmol/L (137-145)
== END 2022-02-13 10:11 | disposition home or self-care (01) ==
PROVIDERS: PCP Family Medicine; Visit Provider Family Medicine
DX: R60.1 Generalized edema (principal)
CPT/HCPCS: 36415; 80048; 85027

== ENCOUNTER 2022-02-21 10:09 | Outpatient (CLI) | payer MEDICARE, SELFPAY ==
[2022-02-21 12:06] LABS: Anion Gap 2 mmol/L (8-16); Blood Urea Nitrogen 20 mg/dL (7-17); Calcium 8.9 mg/dL (8.4-10.2); Carbon Dioxide 30 mmol/L (22-30); Chloride 103 mmol/L (98-107); Estimated Glomerular Filt Rate > 60; Glucose 119 mg/dL (65-110); Potassium 3.5 mmol/L (3.4-5.0); Sodium 135 mmol/L (137-145)
== END 2022-02-21 10:10 | disposition home or self-care (01) ==
LOC: ANHLAB 10:11
PROVIDERS: PCP Family Medicine; Visit Provider Nurse Practitioner Family
DX: I10 Essential (primary) hypertension (principal)
CPT/HCPCS: 36415; 80048

== ENCOUNTER 2022-02-27 05:31 | Emergency (ER) | payer MEDICARE, SELFPAY ==
[2022-02-27] VITALS (17 sets, daily range): BP systolic 154–164; BP diastolic 60–103; PULSE 68–111; RESP 17–38; TEMP 36.7; O2SAT 78–98
--- NOTE | ~2022-02-27 | XR_ITS ---
EXAMINATION: XR chest 2V DATE: 02/27/2022 06:31 INDICATION: Hypertension TECHNIQUE: PA and lateral views of the chest were obtained. COMPARISON: Chest radiograph dated 12/01/2021 FINDINGS: Mild opacities scattered throughout the mid and upper lung zones with perihilar predominance. No pleu ral effusion or pneumothorax. Mild cardiomegaly. Postoperative change of prior median sternotomy and mitral valve repair. Reverse right total shoulder arthroplasty. Plate-screw fixation for lower cervic al anterior spinal fusion. IMPRESSION: 1. Scattered mild bilateral perihilar predominant opacities which could represent pulmonary edema or pneumonia. 2. Cardiomegaly. Reviewed, dictated and finalized at location A. IMPRESSION: 1. Scattered mild bilateral perihilar predominant opacities which could represe nt pulmonary edema or pneumonia. 2. Cardiomegaly.
--- NOTE | 2022-02-27 05:47 | ECG_ITS ---
Measurements Intervals [place] Rate: 91 P: 38 CO: 178 QRS: -18 QRSD: 90 T: 32 QT: 348 QTc: 430 Interpretive Statements SINUS RHYTHM COMPARED TO ECG 12/01/2021 13:12:07 No change since previous ECG Electronically Signed On 02-27-2022 17:56:33 CDT by Argelia Diaz M.D.
[2022-02-27] MEDS: ALBUTEROL SULFATE NEB 2.5 MG/3 ML INH 5 MG INHALATION (06:07)
[2022-02-27 06:12] LABS: Basophils Absolute Auto 0.1 K/mm3 (0.0-0.1); Basophils Percent Auto 1.2 % (0.2-1.2); Eosinophils Absolute Auto 0.1 K/mm3 (0-0.3); Hematocrit 40.7 % (37.0-47.0); Hemoglobin 12.6 g/dL (12.0-15.0); Immature Granulocyte Absolute 0.05 K/mm3 (0.00-0.031); Immature Granulocyte Percent A 0.7 % (0-0.5); Lymphocytes Absolute Auto 1.72 K/mm3 (0.9-3.2); Lymphocytes Percent Auto 24.9 % (18.3-44.2); Mean Corpuscular Hemoglobin 29.6 pg (26-34); Mean Corpuscular Volume 95.8 fl (80-100); Mean Platelet Volume 11.2 fl (7.4-10.4); Monocytes Absolute Auto 0.8 K/mm3 (0.1-0.6); Monocytes Percent Auto 11.8 % (2.6-8.5); Neutrophils Absolute Auto 4.1 K/mm3 (1.3-6.7); Neutrophils Percent Auto 59.4 % (45.5-73.1); Platelet Count Result 248 k/mm3 (150-375); Red Blood Count 4.25 M/mm3 (4.2-5.4); Red Cell Distribution Width 15.5 % (11.5-14.5); White Blood Count 6.9 K/mm3 (4.5-10.0)
[2022-02-27] MEDS: ASPIRIN 81 MG CHEWABLE TABLET PO (06:16)
[2022-02-27] MEDS: METOPROLOL TARTRATE 50 MG TAB 25 MG PO (06:16)
[2022-02-27] MEDS: SOTALOL HCL 80 MG TABLET PO (06:16)
[2022-02-27] MEDS: FUROSEMIDE INJ 40 MG/4 ML VIAL IV PUSH (06:16)
--- NOTE | 2022-02-27 06:21 | ED.GENADULT ---
HPI - General Adult General Chief complaint: Recheck/Abnormal Lab/Rx <Stanislav Gomes MD - Last Filed: 02/27/22 07:09> Stated complaint: htn <Stanislav Gomes MD - Last Filed: 02/27/22 07:09> Time Seen by Provider: 02/27/22 05:37 <Stanislav Gomes MD - Last Filed: 02/27/22 07:09> History of Present Illness HPI narrative: 72-year-old female history of rheumatoid arthritis, hypertension, COPD presenting to the emergency department for evaluation of hypertension. Patient states this morning she was feeling restless and could not sleep. Patient states that she often does not sleep well. She checked her Blood pressure at 4:00 in the morning and it was noted to be 170/110. Patient does take medications for high blood pressure but she did not take her blood pressure medications this morning. Patient denies having any chest pain. Patient states she does have some shortness of breath at baseline but does feel slightly more short of breath than normal. Patient does take breathing treatments at home. <Stanislav Gomes MD - Last Filed: 02/27/22 07:09> Related Data Home medications: Home Medications Medication Instructions Recorded Confirmed aspirin 81 mg tablet,delayed 81 mg PO DAILY 07/04/19 02/24/22 release leflunomide 20 mg tablet 20 mg PO DAILY 07/04/19 02/24/22 magnesium oxide 400 mg PO DAILY 07/04/19 02/24/22 nitroglycerin 0.4 mg sublingual 0.4 mg sublingual Q5M PRN Chest 07/04/19 02/24/22 tablet Pain cholecalciferol (vitamin D3) 25 25 mcg PO DAILY 08/06/21 02/24/22 mcg (1,000 unit) tablet (Vitamin D3) furosemide 40 mg tablet 40 mg PO 3XW 08/06/21 02/24/22 meclizine 25 mg tablet 25 mg PO TID PRN Nausea 08/06/21 02/24/22 metoprolol tartrate 25 mg tablet 25 mg PO BID 08/06/21 02/24/22 niacin 500 mg tablet 500 mg PO DAILY 08/06/21 02/24/22 potassium chloride 10 mEq 20 meq PO DAILY 08/06/21 02/24/22 tablet,extended release vitamin A 10,000 unit capsule 10,000 unit PO DAILY 08/06/21 02/24/22 prednisone 10 mg tablet 10 mg PO DAILY 02/17/22 02/24/22 <Stanislav Gomes MD - Last Filed: 02/27/22 07:09> Allergies/adverse reactions: Allergies Allergy/AdvReac Type Severity Reaction Status Date / Time ciprofloxacin Allergy Mild Unknown Verified 02/24/22 11:13 codeine Allergy Unknown Unknown Verified 02/24/22 11:13 levofloxacin Allergy Unknown Unknown Verified 02/24/22 11:13 lisinopril Allergy Unknown Unknown Verified 02/24/22 11:13 <Stanislav Gomes MD - Last Filed: 02/27/22 07:09> Review of Systems Review of Systems: CONSTITUTIONAL: Denies fever, chills, or sweats. EYES: Denies visual changes, redness, or discharge. ENT: Denies rhinorrhea, congestion, sore throat, or otalgia. CARDIOVASCULAR: Denies chest pain, palpitations, or edema. RESPIRATORY: Denies cough or dyspnea. GASTROINTESTINAL: Denies abdominal pain, nausea, vomiting, or diarrhea. GENITOURINARY: Denies dysuria or hematuria. SKIN: Denies rash or itching. MUSCULOSKELETAL: Denies back pain, joint pain, or myalgia. NEUROLOGIC: Denies headache, numbness, or weakness. PSYCHIATRIC: Denies anxiety or depression. <Stanislav Gomes MD - Last Filed: 02/27/22 07:09> [facility] Past Medical History Medical History: Medical History (Reviewed 02/24/22 @ 11:17 by Annemarie Lanier [facility]) [place] BMI 33.0-33.9,adult BMI 34.0-34.9,adult BMI 36.0-36.9,adult BMI 37.0-37.9, adult BMI greater than 30 BMI over 35 Cervical arthritis Chest pain at rest Chronic diarrhea Chronic obstructive pulmonary disease, unspecified COPD (chronic obstructive pulmonary disease) 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 COVID-19 Dyslipidemia Edema of both legs Elevated CPK Elevated liver enzymes Essential hypertension Exocrine pancreatic insufficiency Facial numbness Facial trauma Gastro-esophageal reflux disease without esophagitis Multifocal atrial tachycardia Muscle weakness Nasal fracture
[2022-02-27 06:25] LABS: Alanine Aminotransferase 23 U/L (6-35); Albumin Level 3.5 g/dL (3.5-5.1); Alkaline Phosphatase 75 U/L (38-126); Anion Gap 0 mmol/L (8-16); Aspartate Amino Transferase 28 U/L (14-36); Bilirubin,Total 0.4 mg/dL (0.2-1.3); Blood Urea Nitrogen 18 mg/dL (7-17); Calcium 8.7 mg/dL (8.4-10.2); Carbon Dioxide 31 mmol/L (22-30); Chloride 104 mmol/L (98-107); Estimated Glomerular Filt Rate > 60; Glucose 129 mg/dL (65-110); Potassium 3.5 mmol/L (3.4-5.0); Sodium 135 mmol/L (137-145)
[2022-02-27 06:36] LABS: NT Pro B Type Natriuretic Pept 378 pg/mL (5-100)
[2022-02-27 06:38] LABS: Troponin I < 0.012 ng/mL (0.000-0.034)
[2022-02-27 09:28] LABS: Troponin I < 0.012 ng/mL (0.000-0.034)
== END 2022-02-27 09:38 | disposition home or self-care (01) ==
PROVIDERS: Emergency Medicine; Emergency Provider Emergency Medicine; PCP Family Medicine
DX: I10 Essential (primary) hypertension (principal); M06.9 Rheumatoid arthritis, unspecified; J44.9 Chronic obstructive pulmonary disease, unspecified; I25.719 Atherosclerosis of autologous vein coronary artery bypass graft(s) with unspecified angina pectoris; E78.5 Hyperlipidemia, unspecified; K86.81 Exocrine pancreatic insufficiency; K21.9 Gastro-esophageal reflux disease without esophagitis; Z86.16 Personal history of COVID-19; Z87.01 Personal history of pneumonia (recurrent); Z79.82 Long term (current) use of aspirin; Z98.42 Cataract extraction status, left eye; Z98.1 Arthrodesis status; Z77.22 Contact with and (suspected) exposure to environmental tobacco smoke (acute) (chronic); R06.02 Shortness of breath
CPT/HCPCS: 36415; 71046; 80053; 83880; 84484; 85025; 93005; 94640; 96374; 99284; A9270; J1940

== ENCOUNTER 2022-03-01 08:39 | Outpatient (CLI) | payer MEDICARE, SELFPAY ==
[2022-03-01 10:17] LABS: Anion Gap 4 mmol/L (8-16); Blood Urea Nitrogen 34 mg/dL (7-17); Carbon Dioxide 28 mmol/L (22-30); Chloride 102 mmol/L (98-107); Estimated Glomerular Filt Rate > 60; Glucose 145 mg/dL (65-110); Potassium 3.6 mmol/L (3.4-5.0); Sodium 134 mmol/L (137-145)
== END 2022-03-01 08:40 | disposition home or self-care (01) ==
PROVIDERS: PCP Family Medicine; Visit Provider Nurse Practitioner Family
DX: I10 Essential (primary) hypertension (principal)
CPT/HCPCS: 36415; 80048

== ENCOUNTER 2022-03-13 07:44 | Outpatient (CLI) | payer MEDICARE, SELFPAY ==
[2022-03-13 08:15] LABS: Cholesterol 324 mg/dL (0-200); HDL Direct 47 mg/dL; Triglycerides 259 mg/dL (<150)
[2022-03-13 08:25] LABS: LDL Cholesterol Direct 188 mg/dL
== END 2022-03-13 07:45 | disposition home or self-care (01) ==
PROVIDERS: PCP Family Medicine; Visit Provider Internal Medicine Cardiovascular Disease
DX: E78.5 Hyperlipidemia, unspecified (principal)
CPT/HCPCS: 36415; 80061

== ENCOUNTER 2022-03-21 07:57 | Outpatient (CLI) | payer MEDICARE, SELFPAY ==
[2022-03-21 08:22] LABS: INR 1.2; Prothrombin Time 14.4 Seconds (11.1-14.7)
== END 2022-03-21 07:58 | disposition home or self-care (01) ==
LOC: ANHLAB 07:59
PROVIDERS: PCP Family Medicine; Visit Provider Internal Medicine Cardiovascular Disease
DX: I25.719 Atherosclerosis of autologous vein coronary artery bypass graft(s) with unspecified angina pectoris (principal)
CPT/HCPCS: 36415; 85610

== ENCOUNTER 2022-06-09 09:31 | Outpatient (RCR) | payer MEDICARE, SELFPAY ==
[2022-03-31 09:38] LABS: INR 1.1; Prothrombin Time 14.1 Seconds (11.1-14.7)
[2022-04-09 09:56] LABS: INR 1.3; Prothrombin Time 15.8 Seconds (11.1-14.7)
[2022-04-17 10:49] LABS: INR 2.6; Prothrombin Time 27.2 Seconds (11.1-14.7)
[2022-05-02 10:02] LABS: INR 2.9; Prothrombin Time 29.5 Seconds (11.1-14.7)
[2022-05-19 12:25] LABS: INR 2.4; Prothrombin Time 25.6 Seconds (11.1-14.7)
[2022-06-09 10:01] LABS: INR 2.5
== END 2022-06-29 23:59 | disposition home or self-care (01) ==
LOC: ANHLAB 09:31
PROVIDERS: PCP Family Medicine; Visit Provider Internal Medicine Cardiovascular Disease
DX: I25.719 Atherosclerosis of autologous vein coronary artery bypass graft(s) with unspecified angina pectoris (principal)
CPT/HCPCS: 36415; 85610

== ENCOUNTER 2022-06-12 08:31 | Outpatient (CLI) | payer MEDICARE, SELFPAY ==
--- NOTE | ~2022-06-12 | NM_ITS ---
EXAMINATION: NM fabi stress w perfusion DATE: 06/12/2022 12:43 INDICATION: Dyspnea TECHNIQUE: Rest images were obtained following intravenous administration of 9.9 mCi Tc99m tetrofosmi n (Myoview). The patient was infused intravenously with Lexiscan (Regadenoson). Then, 30.8 mCi Tc99m tetrofosmin (Myoview) was administered intravenously, and stress images were obtained in supine posit ion. Additional post stress images were obtained in the prone position. Data was reconstructed into s hort axis and horizontal and vertical long axis SPECT images. Gated SPECT images were also obtained. COMPARISON: None. FINDINGS: There is no definite reversible or fixed perfusion abnormality to suggest ischemia or infar ction. There is normal left ventricular chamber size, wall motion and ejection fraction. Left ventr icular ejection fraction measures >70%. IMPRESSION: 1. Normal myocardial perfusion at rest and during stress. 2. Left ventricular ejection fraction measuring >70%. Reviewed, dictated and finalized at location B.
--- NOTE | 2022-06-12 08:38 | ECHO_ITS ---
Patient Info Name: Laura Clifford Age: 72 years : 1950 Gender: Female Ht: 63 in Wt: 204 lbs BSA: 2.07 m2 HR: 97 bpm BP: 169 / 96 mmHg Technical Quality: Good Exam Date: 06/12/2022 9:23 AM Exam Location: [facility] Patient Status: Outpatient Admit Date: 06/12/2022 Staff Ordering Physician: Miky Sorensen DO [employer]: Kim Atkins RDCS Attending Provider: Miky Sorensen DO Referring Physician: Edu HDZ; Exam Type: CA echo doppler color flow Study Info Indications R06.09 - Other forms of dyspnea Complete two-dimensional, color flow and Doppler transthoracic echocardiogram is performed. Summary 1. Complete two-dimensional, color flow and Doppler transthoracic echocardiogram is performed. 2. Left ventricular chamber dimension is normal. 3. Left ventricular systolic function is normal, estimated at 60-65%. 4. The left ventricular diastolic function is normal. 5. Left atrial chamber dimension is mildly enlarged. 6. There is moderate aortic valve sclerosis. 7. The mitral valve has moderately calcified leaflets and moderately calcified annulus. 8. There is moderate mitral valve stenosis with valve area of 1.1 cm2 by continuity equation and mean gradient of 3 mmHg. 9. There is trace mitral valve regurgitation. Left Ventricle Tissue doppler E/e' is not performed. Left ventricular chamber dimension is normal. Left ventricular systolic function is normal, estimated at 60-65%. The left ventricular diastolic function is normal. Right Ventricle Right ventricular chamber dimension is normal. Right ventricular systolic function is normal. Left Atria Left atrial chamber dimension is mildly enlarged. Right Atria Right atrial chamber dimension is normal. Aortic Valve The aortic valve is trileaflet. There is moderate aortic valve sclerosis. There is no aortic valve stenosis. There is no aortic valve regurgitation. Pulmonic Valve There is no pulmonic regurgitation. Mitral Valve The mitral valve has moderately calcified leaflets and moderately calcified annulus. There is moderate mitral valve stenosis with valve area of 1.1 cm2 by continuity equation and mean gradient of 3 mmHg. There is trace mitral valve regurgitation. Tricuspid Valve There is no tricuspid valve regurgitation. Pericardium/Pleural There is no pericardial effusion. Inferior Vena Cava Normal inferior vena cava with >50% collapse upon inspiration consistent with normal right atrial pressure, 5 mmHg. Aorta The aortic root size at the sinus of Valsalva is normal. Left Ventricular Outflow Tract Name Value Normal LVOT 2D LVOT Diameter 2.0 cm LVOT Doppler LVOT Peak Gradient 2 mmHg LVOT Mean Gradient 2 mmHg LVOT VTI 14 cm LVOT VTI/AV VTI Ratio 1.1 LVOT Stroke Volume 45 ml LVOT CO 4.3 l/min LVOT CI 2.1 l/min/m2 Mitral Valve
--- NOTE | 2022-06-12 10:21 | EST_ITS ---
Patient Info Name: Laura Clifford Age: 72 years : 1950 Gender: Female Ht: 63 in Wt: 204 lbs BSA: 2.07 m2 Exam Date: 06/12/2022 11:01 AM Exam Location: [facility] Stress Patient Status: Outpatient Admit Date: 06/12/2022 Staff Ordering Physician: Miky Sorensen DO Attending Provider: Miky Sorensen DO Exercise Technologist: Son Brown RDCS, RT Exercise Physician: Miky Sorensen DO Exam Type: CA stress fabi w NM Study Info A regadenoson stress test was performed. Summary 1. 1. Negative lexiscan stress test for ischemic ST changes by ECG criteria. 2. 2. Baseline hypertension. 3. 3. Nuclear scan to follow and will be reported separately. Please correlate with it. 4. 4. Patient informed of the above results. Protocol: Lexiscan Stress ECG Details Stage: REST Duration (min): 2 min : 39 sec HR (bpm): 96 SBP (mmHg): 180 DBP (mmHg): 103 Stage: REST Duration (min): 7 min : 22 sec HR (bpm): 92 SBP (mmHg): 180 DBP (mmHg): 103 Stage: STAGE 1 Duration (min): 1 min : 0 sec HR (bpm): 91 SBP (mmHg): 180 DBP (mmHg): 103 Stage: RECOVERY Duration (min): 1 min : 0 sec HR (bpm): 94 SBP (mmHg): 137 DBP (mmHg): 85 Stage: RECOVERY Duration (min): 2 min : 0 sec HR (bpm): 94 SBP (mmHg): 137 DBP (mmHg): 85 Stage: RECOVERY Duration (min): 2 min : 56 sec HR (bpm): 94 SBP (mmHg): 155 DBP (mmHg): 83 Rest HR: 92 bpm Peak HR: 95 bpm Rest Sys BP: 180 mmHg Peak Sys BP: 155 mmHg Max Pred HR: 150 bpm % Max Pred HR: 63 % Target HR: 128 bpm Max RPP: 14,725 bpm*mmHg Termination Reason: Completed protocol Cardiac Symptoms: Shortness of breath Total Time: 1 min : 0 sec Rest Little BP: 103 mmHg Peak Little BP: 83 mmHg Total Dose: 0.4 mg Resting ECG Sinus rhythm. Stress ECG No ST changes. Arrhythmias None. Report Signatures
== END 2022-06-12 08:32 | disposition home or self-care (01) ==
PROVIDERS: PCP Family Medicine; Visit Provider Internal Medicine Cardiovascular Disease
DX: R06.09 Other forms of dyspnea (principal); I35.0 Nonrheumatic aortic (valve) stenosis; I34.2 Nonrheumatic mitral (valve) stenosis
CPT/HCPCS: 78452; 93017; 93306; A9502; J2785

== ENCOUNTER 2022-06-18 07:57 | Outpatient (CLI) | payer MEDICARE, SELFPAY ==
[2022-06-18 08:33] LABS: Alanine Aminotransferase 18 U/L (6-35); Albumin Level 3.7 g/dL (3.5-5.1); Alkaline Phosphatase 95 U/L (38-126); Anion Gap 7 mmol/L (8-16); Aspartate Amino Transferase 24 U/L (14-36); Bilirubin,Total 0.5 mg/dL (0.2-1.3); Blood Urea Nitrogen 16 mg/dL (7-17); Carbon Dioxide 28 mmol/L (22-30); Chloride 102 mmol/L (98-107); Cholesterol 113 mg/dL (0-200); Estimated Glomerular Filt Rate > 60; Glucose 153 mg/dL (65-110); HDL Direct 43 mg/dL; Potassium 3.8 mmol/L (3.4-5.0); Sodium 137 mmol/L (137-145); Triglycerides 168 mg/dL (<150)
[2022-06-18 08:44] LABS: LDL Cholesterol Direct 39 mg/dL
== END 2022-06-18 07:58 | disposition home or self-care (01) ==
PROVIDERS: PCP Family Medicine; Visit Provider Internal Medicine Cardiovascular Disease
DX: E78.5 Hyperlipidemia, unspecified (principal)
CPT/HCPCS: 36415; 80053; 80061

== ENCOUNTER 2022-07-09 15:22 | Inpatient (IN) | payer MEDICARE, SELFPAY ==
[2022-07-09] VITALS (10 sets, daily range): BP systolic 124–148; BP diastolic 73–91; PULSE 82–99; RESP 14–16; TEMP 36.5–37.4; O2SAT 88–97; BMI 35.9
--- NOTE | ~2022-07-09 | CT_ITS ---
EXAMINATION: CT abdomen pelvis w con DATE: 07/09/2022 20:35 INDICATION: bloody stool TECHNIQUE: Computed tomography (CT) of the abdomen and pelvis was performed with 100 mL Omnipaque-350 intravenous contrast. Automated exposure control and iterative reconstruction technique were employe d. The dose-length product was 881.36 mGy-cm. COMPARISON: 08/27/2018. FINDINGS: Lower thorax: Aortic valve calcification and coronary artery calcification. Mitral valve replacement. Mosaic attenuation in the lungs. Liver: Normal. Biliary/Gallbladder: Gallbladder is normal. No bile duct dilation. Pancreas: No mass or duct dilation. Spleen: Normal. Adrenals:No mass. Kidneys: No mass, stone, or hydronephrosis. GI tract: Distal esophageal and gastric wall edema. No small or large bowel dilation. Normal appendix . Mesentery/Peritoneum: No ascites, mass, or free air. Retroperitoneum: No mass. Atherosclerotic abdominal aortic and/or arterial calcifications. Pelvis: Pelvic organs are within normal limits. Soft Tissues: Bilateral flank and posterior subcutaneous edema. Bones: No acute osseous finding. IMPRESSION: Mosaic attenuation which can be seen with asthma, bronchiolitis obliterans, hypersensitivity pneumoni tis, and chronic thromboembolic disease. Esophagitis/gastritis. Otherwise, no acute abdominopelvic pr ocess detected. Reviewed, dictated and finalized at location K. [employer] IMPRESSION: Mosaic attenuation which can be seen with asthma, bronchiolitis obliterans, hyp ersensitivity pneumonitis, and chronic thromboembolic disease. Esophagitis/joes ritis. Otherwise, no acute abdominopelvic process detected.
[2022-07-09 16:15] LABS: Basophils Absolute Auto 0.1 K/mm3 (0.0-0.1); Basophils Percent Auto 0.8 % (0.2-1.2); Eosinophils Absolute Auto 0.3 K/mm3 (0-0.3); Hematocrit 35.3 % (37.0-47.0); Hemoglobin 10.9 g/dL (12.0-15.0); Immature Granulocyte Absolute 0.03 K/mm3 (0.00-0.031); Immature Granulocyte Percent A 0.4 % (0-0.5); Lymphocytes Absolute Auto 1.89 K/mm3 (0.9-3.2); Lymphocytes Percent Auto 22.1 % (18.3-44.2); Mean Corpuscular HGB Conc 30.9 g/dl (32-36); Mean Corpuscular Volume 87.4 fl (80-100); Monocytes Absolute Auto 1.1 K/mm3 (0.1-0.6); Monocytes Percent Auto 12.6 % (2.6-8.5); Neutrophils Absolute Auto 5.2 K/mm3 (1.3-6.7); Neutrophils Percent Auto 61.1 % (45.5-73.1); Platelet Count Result 292 k/mm3 (150-375); Red Blood Count 4.04 M/mm3 (4.2-5.4); Red Cell Distribution Width 16.8 % (11.5-14.5); White Blood Count 8.6 K/mm3 (4.5-10.0)
[2022-07-09 16:25] LABS: Prothrombin Time 30.3 Seconds (11.1-14.7)
[2022-07-09 16:27] LABS: Partial Thromboplastin Time 40.9 SECONDS (22.3-36.8)
[2022-07-09 16:32] LABS: Alanine Aminotransferase 14 U/L (6-35); Albumin Level 3.6 g/dL (3.5-5.1); Alkaline Phosphatase 87 U/L (38-126); Anion Gap 8 mmol/L (8-16); Aspartate Amino Transferase 22 U/L (14-36); Bilirubin,Total 0.3 mg/dL (0.2-1.3); Blood Urea Nitrogen 15 mg/dL (7-17); Calcium 8.2 mg/dL (8.4-10.2); Carbon Dioxide 27 mmol/L (22-30); Chloride 100 mmol/L (98-107); Estimated CRCL calculation 69 ml/min; Estimated Glomerular Filt Rate > 60; Glucose 125 mg/dL (65-110); Potassium 3.5 mmol/L (3.4-5.0); Sodium 135 mmol/L (137-145)
--- NOTE | 2022-07-09 19:39 | ED.GENADULT ---
HPI - General Adult General Chief complaint: GI Bleed Stated complaint: blood in stool Time Seen by Provider: 07/09/22 19:20 History of Present Illness HPI narrative: 72-year-old female with history of CABG on Coumadin presenting to the emergency department for evaluation of rectal bleeding. Patient states last Thursday she had a bowel movement and noticed that it was blood and dark stool. Patient states that this occurred on Thursday and has been occurring intermittently throughout the week since. Patient does have a prior history of anal fissure during which she passed bright red blood. Patient states this feels different. Patient does report some soreness at her rectum but denies any abdominal pain. Patient denies any associated nausea or vomiting. Related Data Home Medications Medication Instructions Recorded Confirmed aspirin 81 mg tablet,delayed 81 mg PO DAILY 07/04/19 07/09/22 release leflunomide 20 mg tablet 20 mg PO DAILY 07/04/19 07/09/22 magnesium oxide 400 mg PO DAILY 07/04/19 07/09/22 nitroglycerin 0.4 mg sublingual 0.4 mg sublingual Q5M PRN Chest 07/04/19 07/09/22 tablet Pain cholecalciferol (vitamin D3) 25 25 mcg PO DAILY 08/06/21 07/09/22 mcg (1,000 unit) tablet (Vitamin D3) furosemide 40 mg tablet 40 mg PO DAILY 08/06/21 07/09/22 niacin 500 mg tablet 500 mg PO DAILY 08/06/21 07/09/22 vitamin A 10,000 unit capsule 10,000 unit PO DAILY 08/06/21 07/09/22 metoprolol tartrate 25 mg tablet 25 mg PO BID 07/09/22 07/09/22 potassium chloride 10 mEq 20 meq PO DAILY 07/09/22 07/09/22 tablet,extended release pramipexole 0.5 mg tablet 0.5 mg PO HS 07/09/22 07/09/22 sotalol 80 mg tablet 80 mg PO BID 07/09/22 07/09/22 Allergies Allergy/AdvReac Type Severity Reaction Status Date / Time ciprofloxacin Allergy Mild Unknown Verified 05/27/22 15:05 codeine Allergy Unknown Unknown Verified 05/27/22 15:05 levofloxacin Allergy Unknown Unknown Verified 05/27/22 15:05 lisinopril Allergy Unknown Unknown Verified 05/27/22 15:05 Review of Systems Review of Systems: CONSTITUTIONAL: Denies fever, chills, or sweats. EYES: Denies visual changes, redness, or discharge. ENT: Denies rhinorrhea, congestion, sore throat, or otalgia. CARDIOVASCULAR: Denies chest pain, palpitations, or edema. RESPIRATORY: Denies cough or dyspnea. GASTROINTESTINAL: See HPI GENITOURINARY: Denies dysuria or hematuria. SKIN: Denies rash or itching. MUSCULOSKELETAL: Denies back pain, joint pain, or myalgia. NEUROLOGIC: Denies headache, numbness, or weakness. 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 COVID-19 Cubital tunnel syndrome on right Dyslipidemia Edema of both legs Elevated CPK Elevated liver enzymes Essential hypertension Exocrine pancreatic insufficiency Facial numbness Facial trauma Gastro-esophageal reflux disease without esophagitis Multifocal atrial tachycardia Muscle weakness Nasal fracture Neck muscle spasm Need for pneumococcal vaccination Pneumonia Proteinuria Thrush, oral Surgical History Surgical History H/O mitral valve repair H/O mitral valve repair History of cataract extraction Left History of hand surgery trigger finger, thumb History of shoulder surgery Personal history of spine surgery discetomy, spinal fusion Family History Family History Mother Cerebrovascular accident Family history of diabetes mellitus in first degree relative Family history of coronar
[2022-07-09] MEDS: PANTOPRAZOLE SODIUM IV 40 MG VIAL IV PUSH (19:51)
--- NOTE | 2022-07-09 20:46 | PM.IMHP ---
H&P: HPI History of Present Illness Date/Time: 07/09/22 20:46 Chief Complaint: 72 years old female with past medical history of hypertension hyperlipidemia CABG patient on Coumadin mitral valve repair chronic anemia rheumatoid arthritis ulcerative colitis presented to the hospital with dark stool started Thursday intermittent no aggravating or relieving factor associated sometimes with fresh blood per rectum patient has history of anal fissure at the ER occult blood was positive stool was dark no evidence of fresh blood hemoglobin was around 10 CT scan of the abdomen pending patient was seen recently by heme Onc for an anemia patient was admitted for further evaluation and treatment of GI bleed GI was consulted Review of Systems Review of Systems: Twelve system exam was done negative except above PMFSH Past Medical History Medical History Anasarca BMI 33.0-33.9,adult BMI 34.0-34.9,adult BMI 36.0-36.9,adult BMI 37.0-37.9, adult BMI greater than 30 BMI over 35 Cervical arthritis Chest pain at rest Chronic diarrhea Chronic obstructive pulmonary disease, unspecified COPD (chronic obstructive pulmonary disease) 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 COVID-19 Cubital tunnel syndrome on right Dyslipidemia Edema of both legs Elevated CPK Elevated liver enzymes Essential hypertension Exocrine pancreatic insufficiency Facial numbness Facial trauma Gastro-esophageal reflux disease without esophagitis Multifocal atrial tachycardia Muscle weakness Nasal fracture Neck muscle spasm Need for pneumococcal vaccination Pneumonia Proteinuria Thrush, oral Surgical History Surgical History H/O mitral valve repair H/O mitral valve repair History of cataract extraction Left History of hand surgery trigger finger, thumb History of shoulder surgery Personal history of spine surgery discetomy, spinal fusion Family History Family History Mother Cerebrovascular accident Family history of diabetes mellitus in first degree relative Family history of coronary artery disease Acute myocardial infarction Father Carcinoma of colon Family history of lung cancer Family history of malignant neoplasm of esophagus Sibling Liver disease Liver transplant recipient Other Family history of malignant neoplasm of brain Family history of malignant neoplasm of stomach Social History Social History Smoking status: Never smoker Second hand tobacco smoke exposure: Yes Alcohol intake: current Alcohol use details: 5 times a year Substance use: never Substance use type: does not use Additional occupation/education comments: [employer] Gender identity (if verbalized by the patient): Female Spiritual care concerns: No Meds Home Medications and Allergies Home Medications Medication Instructions Recorded Confirmed Type aspirin 81 mg tablet,delayed 81 mg PO DAILY 07/04/19 05/27/22 History release leflunomide 20 mg tablet 20 mg PO DAILY 07/04/19 05/27/22 History magnesium oxide 400 mg PO DAILY 07/04/19 05/27/22 History nitroglycerin 0.4 mg sublingual 0.4 mg sublingual Q5M PRN Chest 07/04/19 05/27/22 History tablet Pain cholecalciferol (vitamin D3) 25 25 mcg PO DAILY 08/06/21 05/27/22 History mcg (1,000 unit) tablet (Vitamin D3) furosemide 40 mg tablet 40 mg PO 3XW 08/06/21 05/27/22 History niacin 500 mg tablet 500 mg PO DAILY 08/06/21 05/27/22 History vitamin A 10,000 unit capsule 10,000 unit PO DAILY 08/06/21 05/27/22 History sotalol 80 mg tablet See Rx Instructions .Route 10/17/21 05/27/22 Rx .COMPLEX #180 tabs nystatin 100,000 unit/mL oral 1 ml PO QID #60 mL 01/31/22 05/27/22 Rx suspension
[2022-07-09 21:01] LABS: Hematocrit 35.9 % (37.0-47.0); Hemoglobin 11.1 g/dL (12.0-15.0)
[2022-07-09 21:21] LABS: SARS-CoV-2 RNA PCR Negative
[2022-07-09 21:21] LABS: Iron 33 ug/dL (37-170)
[2022-07-09 21:30] LABS: Percent Iron Saturation 8 % (20-50)
--- NOTE | 2022-07-09 22:31 | ADMGEN ---
This patient, Laura Clifford, was admitted to 2 Medical Room 259-01. Patient/family oriented to hospital policies and general routines including ID bracelet, bed and alarms, visiting hours, pain management, procedures, bathroom and other care routines, personal items, smoking policy, room service/diet, and visiting hours. Information on how to activate the Rapid Response Team has been discussed. Patient/Family are encouraged to report perceived risks to care and to ask questions if they do not understand what they are told or what they should do.
[2022-07-09] MEDS: SODIUM CHLORIDE 0.9% IV 1,000 ML 100 ML IV CONT (22:52)
[2022-07-10] VITALS (8 sets, daily range): BP systolic 113–175; BP diastolic 57–98; PULSE 77–112; RESP 16–24; TEMP 36.4–37.1; O2SAT 90–93
[2022-07-10 06:46] LABS: Alanine Aminotransferase 13 U/L (6-35); Albumin Level 3.3 g/dL (3.5-5.1); Alkaline Phosphatase 84 U/L (38-126); Anion Gap 7 mmol/L (8-16); Aspartate Amino Transferase 20 U/L (14-36); Bilirubin,Total 0.5 mg/dL (0.2-1.3); Blood Urea Nitrogen 11 mg/dL (7-17); Carbon Dioxide 26 mmol/L (22-30); Chloride 104 mmol/L (98-107); Estimated CRCL calculation 80 ml/min; Estimated Glomerular Filt Rate > 60; Glucose 160 mg/dL (65-110); Potassium 3.1 mmol/L (3.4-5.0); Sodium 137 mmol/L (137-145)
[2022-07-10 07:15] LABS: Basophils Absolute Auto 0.1 K/mm3 (0.0-0.1); Eosinophils Absolute Auto 0.2 K/mm3 (0-0.3); Eosinophils Percent Auto 3.5 % (0-4.4); Hematocrit 34.7 % (37.0-47.0); Hemoglobin 10.5 g/dL (12.0-15.0); Immature Granulocyte Absolute 0.04 K/mm3 (0.00-0.031); Immature Granulocyte Percent A 0.6 % (0-0.5); Lymphocytes Absolute Auto 1.13 K/mm3 (0.9-3.2); Lymphocytes Percent Auto 16.3 % (18.3-44.2); Mean Corpuscular HGB Conc 30.3 g/dl (32-36); Mean Corpuscular Hemoglobin 26.6 pg (26-34); Mean Corpuscular Volume 88.1 fl (80-100); Mean Platelet Volume 11.7 fl (7.4-10.4); Monocytes Absolute Auto 0.8 K/mm3 (0.1-0.6); Monocytes Percent Auto 10.9 % (2.6-8.5); Neutrophils Absolute Auto 4.7 K/mm3 (1.3-6.7); Neutrophils Percent Auto 67.7 % (45.5-73.1); Platelet Count Result 265 k/mm3 (150-375); Red Blood Count 3.94 M/mm3 (4.2-5.4); Red Cell Distribution Width 16.8 % (11.5-14.5)
[2022-07-10] MEDS: SOTALOL HCL 80 MG TABLET PO (08:34)
[2022-07-10] MEDS: METOPROLOL TARTRATE 25 MG TABLET PO (08:34)
[2022-07-10] MEDS: KCL 20MEQ/0.9% SOD CHL 1,000 ML 100 ML IV CONT ×2 (10:24→20:25)
--- NOTE | 2022-07-10 11:39 | PM.IMPN ---
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: Code(s): I25.719 - Atherosclerosis of autologous vein coronary artery bypass graft(s) with unspecified angina pectoris Status: Acute Assessment and Plan: Hold aspirin Continue metoprolol (3) COPD (chronic obstructive pulmonary disease): Code(s): J44.9 - Chronic obstructive pulmonary disease, unspecified Status: Acute Assessment and Plan: stable (4) Diastolic dysfunction: Code(s): I51.89 - Other ill-defined heart diseases Status: Acute Assessment and Plan: Stable avoid fluid overload (5) Essential hypertension: Code(s): I10 - Essential (primary) hypertension Status: Acute Assessment and Plan: Resume metoprolol (6) Rheumatoid arthritis, unspecified: Code(s): M06.9 - Rheumatoid arthritis, unspecified Status: Acute (7) PAF (paroxysmal atrial fibrillation): Code(s): I48.0 - Paroxysmal atrial fibrillation Status: Acute Assessment and Plan: Patient on Coumadin and metoprolol hold Coumadin for now as patient has GI bleed (8) Ulcerative colitis: Code(s): K51.90 - Ulcerative colitis, unspecified, without complications Status: Acute Assessment and Plan: Does not seem in acute exacerbation continue hydrocortisone rectally Subjective Date/time seen: 07/10/22 11:39 patient has not had any bowel movement hence she has not noticed any bleeding per rectum Review of Systems Review of Systems: Twelve system exam was done negative except above Exam Narrative: GENERAL: Well appearing, well-nourished, non-toxic, in no acute distress. HEAD: Normocephalic, atraumatic. NECK: Supple. No adenopathy, no masses. RESPIRATORY: Airway patent, respirations nonlabored. Clear to auscultation bilaterally, no rales, rhonchi, wheezing. CARDIOVASCULAR: Regular rate and rhythm without murmurs, rubs, or gallops. Peripheral pulses 2+ and equal bilaterally. ABDOMINAL: Soft, nontender, nondistended, no hepatosplenomegaly. Normoactive BS. MUSCULOSKELETAL: Moves all extremities. Strength/ROM intact without gross deformities or TTP. No edema. No calf tenderness. No chest wall tenderness palpation. SKIN: Warm, dry, normal color. No rashes. NEURO: A&O X3. Speech clear. Cranial nerves II-XII grossly intact. Steady gait. No ataxic movements. PSYCHIATRIC: Appropriate mood and affect. Normal interaction. Objective Data Vital Signs Vital Signs: Vital Signs - 24 hr 07/09/22 16:19 07/09/22 19:55 07/09/22 19:56 Temperature 99.4 F Pulse Rate 95 Respiratory Rate 14 Blood Pressure 124/85 140/78 Pulse Oximetry 93 88 L 90 Oxygen Delivery Room Air 07/09/22 20:00 07/09/22 20:01 07/09/22 20:15 Temperature Pulse Rate Respiratory Rate Blood Pressure 139/73 Pulse Oximetry 90 90 97 Oxygen Delivery 07/09/22 20:16 07/09/22 20:34 07/09/22 22:33 Temperature 97.7 F Pulse Rate 99 Respiratory Rate 16 Blood Pressure 147/75 H 148/91 H Pulse Oximetry 93 92 95 Oxygen Delivery 07/09/22 22:30 07/10/22 00:00 07/10/22 00:00 Temperature 97.8 F Pulse Rate 82 106 H 97 Respiratory Rate 16 Blood Pressure 175/86 H Pulse Oximetry 92 Oxygen Delivery 07/10/22 04:00 07/10/22 04:00 07/10/22 08:00 Temperature 97.6 F Pulse Rate 98 109 H Respiratory Rate 16 Blood Pressure 142/71 H Pulse Oximetry 90 Oxygen Delivery Room Air 07/10/22 08:34 07/10/22 08:34 07/10/22 08:00 Temperature 97.9 F Pulse Rate 111 H 111 H 112 H Respiratory Rate 22 H Blood Pressure 158/98 H Pulse O
--- NOTE | 2022-07-10 12:03 | WPDGICN ---
Assessment and Plan Assessment and plan (1) Acute upper GI bleed: Code(s): K92.2 - Gastrointestinal hemorrhage, unspecified Status: Acute Assessment and Plan: because her stools are dark, I think this is most likely upper gastrointestinal bleed. Her colonoscopy last year was negative for anything that would cause bleeding such as large hemorrhoids or AVMs. Hopefully her INR will be less than 2 tomorrow which would allow us to perform an EGD. She did receive some vitamin K. (2) Rheumatoid arthritis: Code(s): M06.9 - Rheumatoid arthritis, unspecified Status: Acute Assessment and Plan: she states that the past year she developed a lot of rheumatologic complaints apparently has polymyalgia rheumatica. 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 This is on hold because of the gastrointestinal bleed. She did receive 1 dose of vitamin K by mouth (5) Microscopic colitis: Code(s): K52.839 - Microscopic colitis, unspecified Status: Acute Assessment and Plan: her symptoms, chronic diarrhea, subsided after she started budesonide and she continues to to do well with fairly normal bowel movements. Plan Follow counts. Pantoprazole IV EGD in the morning GI Consult Note Consult date/time: 07/10/22 12:03 HPI: Laura Clifford is a 72 year old female who was admitted last night to the emergency room with gastrointestinal bleeding. She states that Thursday evening, she had gone off for dinner and suddenly had an urge to have a bowel movement. She passed a large amount of dark stool which she noticed contained some blood. The same thing happened on Thursday morning. She had not been nauseated. She had not had a fever. She had no abdominal pain. She does have microscopic colitis which was found on colonoscopy 1 year ago. We had started her on budesonide 9 mg per day. We plan to have her taper down several months later when she returned from [place]. She failed to follow up in the office but had developed other problems in the year that kept her busy including coming down with fibromyalgia rheumatica. Her stools are normal consistency lately and she has been taking 2 budesonide tablets daily or least about 4 times a week. She does not use anti-inflammatory medications. She is chronically on warfarin for atrial fibrillation. Her appetite has been good. She denies heartburn, denies dysphagia denies nausea or vomiting. 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
--- NOTE | 2022-07-10 14:30 | PC.NURSE ---
On 07/10/22, the student, [Sommer Brown], provided care and completed [facility] documentation on this patient. I have reviewed the student's documentation and agree with the findings.
[2022-07-10] MEDS: PRAMIPEXOLE 0.5 MG TABLET PO (20:27)
[2022-07-10 22:55] LABS: Hematocrit 31.7 % (37.0-47.0); Hemoglobin 9.8 g/dL (12.0-15.0)
[2022-07-11] VITALS (22 sets, daily range): BP systolic 128–180; BP diastolic 62–100; PULSE 96–131; RESP 12–32; TEMP 36.4–37.6; O2SAT 88–96
[2022-07-11 05:57] LABS: INR 2.3; Prothrombin Time 24.4 Seconds (11.1-14.7)
[2022-07-11 06:02] LABS: Alanine Aminotransferase 13 U/L (6-35); Albumin Level 3.6 g/dL (3.5-5.1); Alkaline Phosphatase 91 U/L (38-126); Anion Gap 9 mmol/L (8-16); Aspartate Amino Transferase 19 U/L (14-36); Bilirubin,Total 0.5 mg/dL (0.2-1.3); Blood Urea Nitrogen 5 mg/dL (7-17); Calcium 8.5 mg/dL (8.4-10.2); Carbon Dioxide 26 mmol/L (22-30); Chloride 105 mmol/L (98-107); Estimated CRCL calculation 80 ml/min; Estimated Glomerular Filt Rate > 60; Glucose 166 mg/dL (65-110); Potassium 3.6 mmol/L (3.4-5.0); Sodium 140 mmol/L (137-145)
[2022-07-11 06:19] LABS: Basophils Absolute Auto 0.1 K/mm3 (0.0-0.1); Eosinophils Absolute Auto 0.2 K/mm3 (0-0.3); Eosinophils Percent Auto 3.1 % (0-4.4); Hematocrit 36.4 % (37.0-47.0); Hemoglobin 11.2 g/dL (12.0-15.0); Immature Granulocyte Absolute 0.03 K/mm3 (0.00-0.031); Immature Granulocyte Percent A 0.4 % (0-0.5); Lymphocytes Absolute Auto 1.36 K/mm3 (0.9-3.2); Lymphocytes Percent Auto 20.1 % (18.3-44.2); Mean Corpuscular HGB Conc 30.8 g/dl (32-36); Mean Corpuscular Hemoglobin 26.5 pg (26-34); Mean Corpuscular Volume 86.1 fl (80-100); Mean Platelet Volume 11.3 fl (7.4-10.4); Monocytes Absolute Auto 0.7 K/mm3 (0.1-0.6); Monocytes Percent Auto 9.6 % (2.6-8.5); Neutrophils Absolute Auto 4.4 K/mm3 (1.3-6.7); Neutrophils Percent Auto 65.8 % (45.5-73.1); Platelet Count Result 321 k/mm3 (150-375); Red Blood Count 4.23 M/mm3 (4.2-5.4); Red Cell Distribution Width 16.9 % (11.5-14.5); White Blood Count 6.8 K/mm3 (4.5-10.0)
[2022-07-11] MEDS: SODIUM CHLORIDE 0.9% IV 250 ML 30 ML IV CONT (09:43)
--- NOTE | 2022-07-11 10:44 | PM.IMPN ---
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: Code(s): I25.719 - Atherosclerosis of autologous vein coronary artery bypass graft(s) with unspecified angina pectoris Status: Acute Assessment and Plan: Hold aspirin Continue metoprolol (3) COPD (chronic obstructive pulmonary disease): Code(s): J44.9 - Chronic obstructive pulmonary disease, unspecified Status: Acute Assessment and Plan: stable (4) Diastolic dysfunction: Code(s): I51.89 - Other ill-defined heart diseases Status: Acute Assessment and Plan: Stable avoid fluid overload (5) Essential hypertension: Code(s): I10 - Essential (primary) hypertension Status: Acute Assessment and Plan: Resume metoprolol (6) Rheumatoid arthritis, unspecified: Code(s): M06.9 - Rheumatoid arthritis, unspecified Status: Acute (7) PAF (paroxysmal atrial fibrillation): Code(s): I48.0 - Paroxysmal atrial fibrillation Status: Acute Assessment and Plan: Patient on Coumadin and metoprolol hold Coumadin for now as patient has GI bleed (8) Ulcerative colitis: Code(s): K51.90 - Ulcerative colitis, unspecified, without complications Status: Acute Assessment and Plan: Does not seem in acute exacerbation continue hydrocortisone rectally Subjective Date/time seen: 07/11/22 10:44 Patient was seen during the morning rounds today. No new overnight complaints. No nausea or vomiting. No shortness of breath or chest pain. Review of Systems Review of Systems: All systems reviewed & are unremarkable except as noted in HPI and below ( the history and physical examination.) Exam Narrative: GENERAL: Well appearing, well-nourished, non-toxic, in no acute distress. HEAD: Normocephalic, atraumatic. NECK: Supple. No adenopathy, no masses. RESPIRATORY: Airway patent, respirations nonlabored. Clear to auscultation bilaterally, no rales, rhonchi, wheezing. CARDIOVASCULAR: Regular rate and rhythm without murmurs, rubs, or gallops. Peripheral pulses 2+ and equal bilaterally. ABDOMINAL: Soft, nontender, nondistended, no hepatosplenomegaly. Normoactive BS. MUSCULOSKELETAL: Moves all extremities. Strength/ROM intact without gross deformities or TTP. No edema. No calf tenderness. No chest wall tenderness palpation. SKIN: Warm, dry, normal color. No rashes. NEURO: A&O X3. Speech clear. Cranial nerves II-XII grossly intact. Steady gait. No ataxic movements. PSYCHIATRIC: Appropriate mood and affect. Normal interaction. Objective Data Vital Signs Vital Signs: Vital Signs - 24 hr 07/10/22 12:00 07/10/22 12:00 07/10/22 16:00 Temperature 36.6 C 36.6 C Pulse Rate 78 95 77 Respiratory Rate 16 16 Blood Pressure 132/57 L 130/74 Pulse Oximetry 93 92 Oxygen Delivery 07/10/22 16:00 07/10/22 20:00 07/10/22 20:00 Temperature 37.1 C Pulse Rate 84 103 H Respiratory Rate 16 Blood Pressure 140/82 Pulse Oximetry 91 Oxygen Delivery Room Air 07/11/22 00:00 07/11/22 04:00 07/10/22 20:00 Temperature 36.7 C 37.6 C Pulse Rate 109 H 131 H 103 H Respiratory Rate 12 20 Blood Pressure 148/79 H 147/96 H Pulse Oximetry 91 91 Oxygen Delivery 07/11/22 00:00 07/11/22 04:00 07/11/22 08:00 Temperature Pulse Rate 112 H 101 H 107 H Respiratory Rate Blood Pressure Pulse Oximetry Oxygen Delivery 07/11/22 08:00 07/11/22 10:10 07/11/22 10:25 Temperature 36.5 C 36.4 C L Pulse Rate 107 H 107 H 108 H Respiratory Rate 20 32 H 28 H Blood Pressure 145/82 H 144/67 H Pulse Oximetry 91 91 92 Oxyge
--- NOTE | 2022-07-11 12:35 | PC.NURSE ---
To GI Lab via [employer].
[2022-07-11] MEDS: LACTATED RINGERS 1,000 ML 150 ML IV CONT (13:16)
--- NOTE | 2022-07-11 13:22 | WPDANESEPPF ---
Anes - Initial Pre Proc Eval Procedure: Operation Date: 07/11/22 14:15 Proposed Procedures p Esophagogastroduodenoscopy - Andrzej Masters MD Date/Time: 07/11/22 13:22 Surgeon: Colby Cesar MD Pre Op Diagnosis: GI BLEED Patient Data Age: 72 Gender: F Height: 1.6 m Weight: 92 kg Last Vital Signs Temp 36.6 C 07/11/22 13:00 Pulse 114 H 07/11/22 13:00 Resp 20 07/11/22 13:00 BP 180/100 H 07/11/22 13:00 Pulse Ox 94 07/11/22 13:00 O2 Del Method Room Air 07/11/22 13:00 Allergies Allergy/AdvReac Type Severity Reaction Status Date / Time ciprofloxacin Allergy Mild Unknown Verified 07/11/22 12:58 codeine Allergy Unknown Unknown Verified 07/11/22 12:58 levofloxacin Allergy Unknown Unknown Verified 07/11/22 12:58 lisinopril Allergy Unknown Unknown Verified 07/11/22 12:58 Home Medications Medication Instructions Recorded Confirmed Type aspirin 81 mg tablet,delayed 81 mg PO DAILY 07/04/19 07/09/22 History release leflunomide 20 mg tablet 20 mg PO DAILY 07/04/19 07/09/22 History magnesium oxide 400 mg PO DAILY 07/04/19 07/09/22 History nitroglycerin 0.4 mg sublingual 0.4 mg sublingual Q5M PRN Chest 07/04/19 07/09/22 History tablet Pain cholecalciferol (vitamin D3) 25 25 mcg PO DAILY 08/06/21 07/09/22 History mcg (1,000 unit) tablet (Vitamin D3) furosemide 40 mg tablet 40 mg PO DAILY 08/06/21 07/09/22 History niacin 500 mg tablet 500 mg PO DAILY 08/06/21 07/09/22 History vitamin A 10,000 unit capsule 10,000 unit PO DAILY 08/06/21 07/09/22 History pantoprazole 40 mg tablet,delayed 40 mg PO QAM #90 tabs 03/09/22 07/09/22 Rx release tiotropium 2.5 mcg-olodaterol 2.5 2 puff inhalation DAILY #4 grams 03/17/22 07/09/22 Rx mcg/actuation mist for inhalation (Stiolto Respimat) alirocumab 75 mg/mL subcutaneous 75 mg subcut Q14D #2 mL 03/18/22 07/09/22 Rx pen injector (Praluent Pen) albuterol sulfate 2.5 mg/3 mL See Rx Instructions .Route 04/15/22 07/09/22 Rx (0.083 %) solution for nebulization .COMPLEX #300 mL warfarin 1 mg tablet See Rx Instructions .Route 05/15/22 07/09/22 Rx .COMPLEX #60 tabs pravastatin 10 mg tablet 10 mg PO DAILY #30 tabs 05/19/22 07/09/22 Rx albuterol sulfate 90 mcg/actuation 1 inh inhalation Q4H PRN shortness 05/26/22 07/09/22 Rx aerosol inhaler (ProAir HFA) of breath or wheezing #6.7 grams metoprolol tartrate 25 mg tablet 25 mg PO BID 07/09/22 07/09/22 History potassium chloride 10 mEq 20 meq PO DAILY 07/09/22 07/09/22 History tablet,extended release pramipexole 0.5 mg tablet 0.5 mg PO HS 07/09/22 07/09/22 History sotalol 80 mg tablet 80 mg PO BID 07/09/22 07/09/22 History Laboratory Tests 07/09/22 07/10/22 07/11/22 16:09 22:50 05:32 WBC 6.8 K/mm3 K/mm3 (4.5-10.0) RBC 4.23 M/mm3 M/mm3 (4.2-5.4) Hgb 9.8 g/dL L g/dL 11.2 g/dL L g/dL (12.0-15.0) (12.0-15.0) Hct 31.7 % L % 36.4 % L % (37.0-47.0) (37.0-47.0) MCV 86.1 fl fl (80-100) MCH 26.5 pg pg (26-34) MCHC 30.8 g/dl L g/dl (32-36) RDW 16.9 % H % (11.5-14.5) Plt Count 321 k/mm3 k/mm3 (150-375) MPV 11.3 fl H fl (7.4-10.4) Immature Gran % (Auto) 0.4 % % (0-0.5) Neut % (Auto) 65.8 % % (45.5-73.1) Lymph % (Auto) 20.1 % % (18.3-44.2) [place]entry % (Auto) 9.6 % H % (2.6-8.5) Eos % (Auto) 3.1 % % (0-4.4) Baso % (Auto) 1.0 % % (0.2-1.2) Lymph # (Auto) 1.36 K/mm3 K/mm3 (0.9-3.2) Gentry # (Auto) 0.7 K/mm3 H K/mm3 (0.1-0.6) Eos # (Auto) 0.2 K/mm3 K/mm3 (0-0.3) Baso # (Auto) 0.1 K/mm3 K/mm3 (0.0-0.1) Abs Immat Gran (auto) 0.03 K/mm3 K/mm3 (0.00-0.031) Absolute Neuts (auto) 4.4 K/mm3 K/mm3 (1.3-6.7) Absolute Nucleated RBC 0.0 K/mm3 K/mm3 (0.0-0.012) Nucleated RBC % 0.0 % % (0.0-0.2) PT INR Sodium
--- NOTE | 2022-07-11 14:02 | SUR.PHASEII ---
SEE ANESTHESIA CHARTING FOR BLOOD VS.
--- NOTE | 2022-07-11 14:35 | PC.NURSE ---
Returned from GI Lab via stretcher. Family in room. Voiding without difficulty.
[2022-07-11] MEDS: WARFARIN (*PBKC) 1 MG TABLET PO (17:35)
[2022-07-11] MEDS: PANTOPRAZOLE SODIUM IV 40 MG VIAL IV PUSH (20:31)
[2022-07-11] MEDS: PRAMIPEXOLE 0.5 MG TABLET PO (20:31)
[2022-07-11] MEDS: METOPROLOL TARTRATE INJ 5 MG/5 ML VIAL IV PUSH (21:48)
[2022-07-11 21:50] LABS: Hematocrit 32.5 % (37.0-47.0)
[2022-07-11] MEDS: METOPROLOL TARTRATE 25 MG TABLET PO (22:49)
[2022-07-12] VITALS (8 sets, daily range): BP systolic 122–150; BP diastolic 68–95; PULSE 102–128; RESP 20–28; TEMP 36.4–36.7; O2SAT 90–95
[2022-07-12 06:19] LABS: Basophils Absolute Auto 0.1 K/mm3 (0.0-0.1); Basophils Percent Auto 0.8 % (0.2-1.2); Eosinophils Absolute Auto 0.1 K/mm3 (0-0.3); Eosinophils Percent Auto 1.8 % (0-4.4); Hematocrit 32.8 % (37.0-47.0); Hemoglobin 10.3 g/dL (12.0-15.0); Immature Granulocyte Absolute 0.02 K/mm3 (0.00-0.031); Immature Granulocyte Percent A 0.3 % (0-0.5); Lymphocytes Absolute Auto 0.96 K/mm3 (0.9-3.2); Lymphocytes Percent Auto 13.4 % (18.3-44.2); Mean Corpuscular HGB Conc 31.4 g/dl (32-36); Mean Corpuscular Hemoglobin 26.9 pg (26-34); Mean Corpuscular Volume 85.6 fl (80-100); Mean Platelet Volume 11.2 fl (7.4-10.4); Monocytes Absolute Auto 0.6 K/mm3 (0.1-0.6); Monocytes Percent Auto 8.9 % (2.6-8.5); Neutrophils Absolute Auto 5.4 K/mm3 (1.3-6.7); Neutrophils Percent Auto 74.8 % (45.5-73.1); Platelet Count Result 269 k/mm3 (150-375); Red Blood Count 3.83 M/mm3 (4.2-5.4); Red Cell Distribution Width 16.6 % (11.5-14.5); White Blood Count 7.2 K/mm3 (4.5-10.0)
[2022-07-12 06:32] LABS: Alanine Aminotransferase 15 U/L (6-35); Albumin Level 3.5 g/dL (3.5-5.1); Alkaline Phosphatase 95 U/L (38-126); Anion Gap 7 mmol/L (8-16); Aspartate Amino Transferase 21 U/L (14-36); Bilirubin,Total 0.7 mg/dL (0.2-1.3); Blood Urea Nitrogen 6 mg/dL (7-17); Calcium 8.4 mg/dL (8.4-10.2); Carbon Dioxide 26 mmol/L (22-30); Chloride 103 mmol/L (98-107); Estimated CRCL calculation 80 ml/min; Estimated Glomerular Filt Rate > 60; Glucose 154 mg/dL (65-110); INR 1.8; Potassium 3.2 mmol/L (3.4-5.0); Prothrombin Time 20.4 Seconds (11.1-14.7); Sodium 136 mmol/L (137-145)
[2022-07-12] MEDS: POTASSIUM CHLORIDE 10 MEQ TABLET.ER 20 MEQ PO (08:26)
[2022-07-12] MEDS: MAGNESIUM OXIDE 400 MG TABLET PO (08:26)
[2022-07-12] MEDS: PANTOPRAZOLE SODIUM IV 40 MG VIAL IV PUSH (08:26)
[2022-07-12] MEDS: METOPROLOL TARTRATE 25 MG TABLET PO (08:27)
[2022-07-12] MEDS: NIACIN SA 500 MG TABLET PO (08:27)
[2022-07-12] MEDS: FUROSEMIDE 40 MG TABLET PO (08:27)
[2022-07-12] MEDS: PRAVASTATIN SODIUM 10 MG TABLET PO (08:28)
--- NOTE | 2022-07-12 09:11 | WPDANESPN ---
Anes - Prog Note Post-Op Date/Time: 07/12/22 09:11 Cardiovascular status: normal Respiratory status: normal Airway patency: baseline Mental status: baseline Post-Op hydration status: normal Vital Signs: Last Vital Signs Temp 36.7 C 07/12/22 08:29 Pulse 115 H 07/12/22 08:29 Resp 28 H 07/12/22 08:29 BP 150/87 H 07/12/22 08:29 Pulse Ox 94 07/12/22 08:29 O2 Del Method Room Air 07/11/22 14:10 Pain Score (VAS): 0/10 I/O: Intake & Output 07/11/22 07/12/22 07/12/22 23:59 07:59 15:59 Intake Total 990 150 Output Total 700 700 Balance 290 -550 Laboratory Tests 07/12/22 06:05 07/12/22 06:05 07/09/22 07/11/22 07/12/22 16:09 21:46 06:05 WBC 7.2 RBC 3.83 L Hgb 10.0 L 10.3 L Hct 32.5 L 32.8 L MCV 85.6 MCH 26.9 MCHC 31.4 L RDW 16.6 H Plt Count 269 MPV 11.2 H Immature Gran % (Auto) 0.3 Neut % (Auto) 74.8 H Lymph % (Auto) 13.4 L Patrick % (Auto) 8.9 H Eos % (Auto) 1.8 Baso % (Auto) 0.8 Lymph # (Auto) 0.96 Patrick # (Auto) 0.6 Eos # (Auto) 0.1 Baso # (Auto) 0.1 Abs Immat Gran (auto) 0.02 Absolute Neuts (auto) 5.4 Absolute Nucleated RBC 0.0 Nucleated RBC % 0.0 PT INR Sodium Potassium Chloride Carbon Dioxide Anion Gap BUN Creatinine Estim Creat Clear Calc Estimated GFR Glucose Calcium Total Bilirubin AST ALT Alkaline Phosphatase Total Protein Albumin Blood Type A Negative Antibody Screen Negative 07/12/22 07/12/22 06:05 06:05 WBC RBC Hgb Hct MCV MCH MCHC RDW Plt Count MPV Immature Gran % (Auto) Neut % (Auto) Lymph % (Auto) Patrick % (Auto) Eos % (Auto) Baso % (Auto) Lymph # (Auto) Patrick # (Auto) Eos # (Auto) Baso # (Auto) Abs Immat Gran (auto) Absolute Neuts (auto) Absolute Nucleated RBC Nucleated RBC % PT 20.4 H INR 1.8 Sodium 136 L Potassium 3.2 L Chloride 103 Carbon Dioxide 26 Anion Gap 7 L BUN 6 L Creatinine 0.60 L Estim Creat Clear Calc 80 Estimated GFR > 60 Glucose 154 H Calcium 8.4 Total Bilirubin 0.7 AST 21 ALT 15 Alkaline Phosphatase 95 Total Protein 7.0 Albumin 3.5 Blood Type Antibody Screen Post-procedural complaints: none Patient Feedback: Patient satisfied with anesthetic care.
[2022-07-12] MEDS: SOTALOL HCL 80 MG TABLET PO (10:01)
[2022-07-12] MEDS: ASPIRIN 81 MG ENTERIC TABLET PO (10:01)
--- NOTE | 2022-07-12 11:43 | PM.DS ---
DS: Admitting Diagnosis Discharge Date 07/12/2022 Admitting Diagnosis GI bleed DS: Discharge Diagnosis Discharge Diagnosis (1) GI bleed: Code(s): K92.2 - Gastrointestinal hemorrhage, unspecified Status: Acute Assessment and Plan: Presented with rectal bleeding ongoing for 5 days prior to presentation. Seen in consultation by GI and underwent EGD which revealed gastritis and nonerosive reflux disease. She will continue Protonix daily and continue to follow-up with GI. Avoid NSAIDs. Warfarin was resumed as there was no active bleeding. (2) Anemia: Code(s): D64.9 - Anemia, unspecified Status: Acute Assessment and Plan: Likely secondary to rectal bleeding. H&H remained stable during admission and suspect continued improvement as no active bleeding. 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 Continue aspirin, metoprolol, nitro as needed. (4) COPD (chronic obstructive pulmonary disease): Code(s): J44.9 - Chronic obstructive pulmonary disease, unspecified Status: Chronic Assessment and Plan: No acute issues. (5) Diastolic dysfunction: Code(s): I51.89 - Other ill-defined heart diseases Status: Acute Assessment and Plan: Clinically compensated. Continue furosemide (6) Essential hypertension: Code(s): I10 - Essential (primary) hypertension Status: Acute Assessment and Plan: Blood pressure stable. Continue metoprolol (7) PAF (paroxysmal atrial fibrillation): Code(s): I48.0 - Paroxysmal atrial fibrillation Status: Acute Assessment and Plan: Patient in AFib noted while on telemetry monitoring. She had some episodes of tachycardia which was likely due to holding of home medications while NPO for procedure. Rate improved after resuming home sotalol and metoprolol. Warfarin held initially given rectal bleeding but was resumed prior to discharge. Follow-up with her nurse supervisor for continued INR monitoring (8) Ulcerative colitis: Code(s): K51.90 - Ulcerative colitis, unspecified, without complications Status: Acute Assessment and Plan: No acute issues during admission. Can continue to follow-up with GI DS: Summary Hospital Course Hospital Course: Date of admission: 07/09/2022 Date of discharge: 07/12/2022 Laura Clifford is a 72-year-old female with history of COPD, CAD, hyperlipidemia, hypertension, GERD, atrial fibrillation on chronic anticoagulation, and ulcerative colitis who presented to the emergency department on 07/09/2022 with complaints of rectal bleeding. On presentation to the ED, her vital signs are stable, she was afebrile, hemoglobin 11.1, additional laboratory workup unremarkable. He was admitted to the hospitalist service for further evaluation management was seen in consultation by GI. Underwent EGD which revealed gastritis. Patient was started on pantoprazole. Home warfarin was resumed. She will follow-up with her PCP and nurse supervisor as an outpatient. Patient was feeling much improved. H&H was remaining stable. Given overall improvement, patient was determined to no longer require inpatient care and was discharged in hemodynamically stable condition on 07/12/2022 after discussing worrisome signs and symptoms for which to return. Time Spent with Patient Time attestation: Total time spent providing and/or coordinating discharge services: 36 minutes Time spent: Greater than 30 minutes Exam Narrative: General: well-nourished, well-appearing 72-year-old female, sitting up in a chair by the bedside , comfortable, NARD Neuro: awake, alert and oriented x4, speech clear, no focal neuro deficits
== END 2022-07-12 12:32 | disposition home or self-care (01) | DRG 378 ==
LOC: ANHED 19:44 → ANH2MED 22:11
PROVIDERS: Emergency Medicine; Internal Medicine; Internal Medicine Gastroenterology; Admitting Provider Internal Medicine; Emergency Provider Emergency Medicine; PCP Family Medicine; Visit Provider Family Medicine
PROC: 0DJ08ZZ Inspection of Upper Intestinal Tract, Via Natural or Artificial Opening Endoscopic (ICD-10-PCS; CPT 43235; principal; 2022-07-11 14:15)
DX: K29.71 Gastritis, unspecified, with bleeding (principal); I25.719 Atherosclerosis of autologous vein coronary artery bypass graft(s) with unspecified angina pectoris; K51.90 Ulcerative colitis, unspecified, without complications; K52.839 Microscopic colitis, unspecified; K21.9 Gastro-esophageal reflux disease without esophagitis; D64.9 Anemia, unspecified; J44.9 Chronic obstructive pulmonary disease, unspecified; I48.0 Paroxysmal atrial fibrillation; I11.9 Hypertensive heart disease without heart failure; M06.9 Rheumatoid arthritis, unspecified; E78.5 Hyperlipidemia, unspecified; Z20.822 Contact with and (suspected) exposure to COVID-19; Z79.01 Long term (current) use of anticoagulants; Z79.82 Long term (current) use of aspirin; Z86.16 Personal history of COVID-19
CPT/HCPCS: 36415; 36430; 74177; 80053; 83540; 83550; 85014; 85018; 85025; 85610; 85730; 86850; 86900; 86901; 87081; 96365; 96366; 96368; 96374; 96376; 99285; A9270; C9113; G0378; J2704; J3480; J7030; J7050; J7060; J7120; P9017; Q9967; U0003; U0005

== ENCOUNTER 2022-08-26 09:36 | Observation (INO) | payer MEDICARE, SELFPAY ==
[2022-08-26] VITALS (48 sets, daily range): BP systolic 101–145; BP diastolic 57–105; PULSE 101–137; RESP 14–38; TEMP 36.4–37.1; O2SAT 88–99
--- NOTE | ~2022-08-26 | CT_ITS ---
EXAMINATION: CTA chest PE protocol DATE: 08/26/2022 11:23 INDICATION: Shortness of breath and hypoxia TECHNIQUE: Computed tomography angiography (CTA) of the chest was performed with 100 mL Omnipaque-350 intravenous contrast timed to evaluate the pulmonary arteries. Coronal maximum intensity projection 3D-reconstructions were created by the technologist. The dose-length product (DLP) was 621.73 mGy-cm. Automated exposure control and iterative reconstruction technique were employed. COMPARISON: 06/26/2019 FINDINGS: The pulmonary arteries are well-opacified. No pulmonary embolism is identified. There are a irspace opacities of the lung apices. Chronic areas of air-trapping are noted throughout the lungs. N o pleural effusion or pneumothorax. There are changes of coronary artery bypass grafting and mitral v alve surgery. No pathologically enlarged thoracic lymph nodes are identified. The heart size is irma l. There is moderate thoracic spondylosis. IMPRESSION: 1. No pulmonary embolus identified. 2. Minimal airspace opacities of the lung apices, likely infection/inflammation. Reviewed, dictated and finalized at location L. HOUSE SUPERVISOR IMPRESSION: 1. No pulmonary embolus identified. 2. Minimal airspace opacities of the lung apices, likely infection/inflammation .
--- NOTE | ~2022-08-26 | XR_ITS ---
Clinical Indication: Shortness of breath PA and lateral views of the chest: Comparison: 02/27/2022 Findings: Stable calcified right upper lobe granuloma. The lungs are otherwise clear, without evidenc e of focal consolidation or pleural effusion. Cardiomediastinal silhouette is stable, status post ca rdiac valve replacement. Right shoulder arthroplasty unchanged. Impression: No acute pulmonary abnormality. Prior cardiac valve replacement. Reviewed, dictated and finalized at location . UTER ARTIST Impression: No acute pulmonary abnormality. Prior cardiac valve replacement.
--- NOTE | 2022-08-26 09:53 | ECG_ITS ---
Measurements Intervals [place] Rate: 123 P: 63 HI: 215 QRS: -23 QRSD: 80 T: 54 QT: 297 QTc: 426 Interpretive Statements SINUS TACHYCARDIA WITH FIRST DEGREE AV BLOCK WITH FREQUENT SUPRAVENTRICULAR PREMATURE COMPLEXES NONSPECIFIC T-WAVE ABNORMALITY ABNORMAL ECG COMPARED TO ECG 02/27/2022 06:24:39 HEART RATE HAS INCREASED FIRST DEGREE AV BLOCK NOW PRESENT ST (T WAVE) DEVIATION NOW PRESENT Electronically Signed On 08-26-2022 17:53:57 DOCTOR OF OSTEOPATHY by Luciano Gibson M.D.
[2022-08-26 10:07] LABS: Basophils Absolute Auto 0.1 K/mm3 (0.0-0.1); Basophils Percent Auto 0.6 % (0.2-1.2); Eosinophils Percent Auto 0.2 % (0-4.4); Hematocrit 37.3 % (37.0-47.0); Hemoglobin 11.2 g/dL (12.0-15.0); Immature Granulocyte Absolute 0.07 K/mm3 (0.00-0.031); Immature Granulocyte Percent A 0.8 % (0-0.5); Lymphocytes Absolute Auto 0.72 K/mm3 (0.9-3.2); Mean Corpuscular Hemoglobin 24.2 pg (26-34); Mean Corpuscular Volume 80.6 fl (80-100); Mean Platelet Volume 10.7 fl (7.4-10.4); Monocytes Absolute Auto 0.7 K/mm3 (0.1-0.6); Monocytes Percent Auto 8.2 % (2.6-8.5); Neutrophils Absolute Auto 7.4 K/mm3 (1.3-6.7); Neutrophils Percent Auto 82.2 % (45.5-73.1); Platelet Count Result 298 k/mm3 (150-375); Red Blood Count 4.63 M/mm3 (4.2-5.4); Red Cell Distribution Width 17.4 % (11.5-14.5)
[2022-08-26 10:27] LABS: Alanine Aminotransferase 21 U/L (6-35); Albumin Level 3.5 g/dL (3.5-5.1); Alkaline Phosphatase 98 U/L (38-126); Aspartate Amino Transferase 24 U/L (14-36); Bilirubin,Total 0.5 mg/dL (0.2-1.3); Blood Urea Nitrogen 11 mg/dL (7-17); Calcium 8.5 mg/dL (8.4-10.2); Carbon Dioxide 25 mmol/L (22-30); Chloride 102 mmol/L (98-107); Estimated Glomerular Filt Rate > 60; Glucose 161 mg/dL (65-110)
--- NOTE | 2022-08-26 10:35 | ED.GENADULT ---
HPI - General Adult General Chief complaint: Unspecified Stated complaint: I'm sick Time Seen by Provider: 08/26/22 10:34 History of Present Illness HPI narrative: 72-year-old female here for evaluation of generalized malaise over the past 4 days. Patient states that she has had a productive cough of green sputum, and has felt increased shortness of breath from her baseline, diarrhea, low-grade fevers and body aches. She took a COVID test at home that was negative. Patient states that she has not been taking her Lasix at home because she is felt miserable and does not want to urinate more. She takes Lasix for lower extremity swelling but does not have a history of heart failure per patient, she follows with Dr. Sorensen and has had a normal cardiac echo in the past. Related Data Home Medications Medication Instructions Recorded Confirmed leflunomide 20 mg tablet 20 mg PO DAILY 07/04/19 08/26/22 furosemide 40 mg tablet 40 mg PO DAILY 08/06/21 08/26/22 metoprolol tartrate 25 mg tablet 25 mg PO BID 07/09/22 08/26/22 potassium chloride 10 mEq 20 meq PO DAILY 07/09/22 08/26/22 tablet,extended release Allergies Allergy/AdvReac Type Severity Reaction Status Date / Time ciprofloxacin Allergy Mild Unknown Verified 08/26/22 16:14 codeine Allergy Unknown Unknown Verified 08/26/22 16:14 levofloxacin Allergy Unknown Unknown Verified 08/26/22 16:14 lisinopril Allergy Unknown Unknown Verified 08/26/22 16:14 Review of Systems Review of Systems: Gen.: Reports fevers Eyes: Denies eye pain or visual change ENT: Denies congestion Respiratory: Reports shortness of breath and cough CV: Denies chest pain or palpitations GI: Denies abdominal pain nausea, emesis or diarrhea denies burning, urgency, frequency or hematuria Musculoskeletal: Reports generalized body aches. Denies back pain or muscle pain Neuro: Denies numbness, tingling, weakness or focal weakness Skin: Denies rash Except as documented, all other systems reviewed and negative [facility] Past Medical History Medical History (Updated 08/26/22 @ 16:28 by Daniela Nix PA-C) Chronic anemia Chronic anticoagulation Chronic diarrhea Chronic obstructive pulmonary disease, unspecified Coronary artery disease COVID-19 Cubital tunnel syndrome on right Dyslipidemia Essential hypertension Exocrine pancreatic insufficiency Facial trauma Gastro-esophageal reflux disease without esophagitis Multifocal atrial tachycardia Paroxysmal atrial fibrillation Pneumonia Surgical History Surgical History (Updated 08/26/22 @ 16:26 by Daniela Nix PA-C) History of Achilles tendon repair History of bilateral carpal tunnel release History of bilateral knee replacement History of cardiac catheterization History of cataract extraction Left History of colonoscopy with polypectomy History of coronary artery bypass graft x 2 (12/2013) History of hand surgery trigger finger, thumb History of heart artery stent History of mitral valve repair History of shoulder surgery History of spinal surgery Lumbar micro discectomy infusion. Family History Family History Mother Cerebrovascular accident Family history of diabetes mellitus in first degree relative Family history of coronary artery disease Acute myocardial infarction Father Carcinoma of colon Family history of lung cancer Family history of malignant neoplasm of esophagus Sibling Liver disease Liver transplant recipient Other Family history of malignant neoplasm of brain Family history of malignant neoplasm of stomach Social History Social History (Updated 08/26/22 @ 16:26 by Daniela Nix PA-C) Social History: Surrogate medical decision maker: Code status: Full code. Smoking status: Never smoker Second hand tobacco smoke exposure: Yes Alcohol intake: current Alcohol use details: Rare alcohol use in moderation.
[2022-08-26 10:38] LABS: Anion Gap 5 mmol/L (8-16); Potassium 3.5 mmol/L (3.4-5.0); Sodium 132 mmol/L (137-145)
[2022-08-26] MEDS: FUROSEMIDE INJ 40 MG/4 ML VIAL IV PUSH (10:55)
[2022-08-26 11:11] LABS: NT Pro B Type Natriuretic Pept 619 pg/mL (5-100)
[2022-08-26 11:27] LABS: Influenza A QL RT-PCR Negative (Negative); Influenza B QL RT-PCR Negative (Negative); SARS-CoV-2 RNA PCR Negative
[2022-08-26 11:53] LABS: Alveolar/Arterial O2 Gradient 69.3 mmHg; Base Excess ABG -0.7 mEq/l (+/-2.0); Fractional Inspired Oxygen 28 %; HCO3 ABG 23.7 mEq/l (22.0-26.0); Oxygen Content ABG 15.2 %vol (16.0-22.0); Oxygen Saturation ABG 96.5 % (95.0-100.0); Oxyhemoglobin 93.2 % THb (90.0-100.0); PCO2 ABG 38.3 mmHg (35.0-45.0); PO2 ABG 85.1 mmHg (80.0-100.0); PO2 FiO2 Ratio Arterial Blood 3.04 %; Total Hemoglobin 11.5 g/dL (12.0-18.0)
[2022-08-26 11:54] LABS: Device NASAL CANNULA; Site Drawn LEFT BRACHIAL
[2022-08-26 12:07] LABS: Troponin I < 0.012 ng/mL (0.000-0.034)
[2022-08-26] MEDS: ALBUTEROL SULFATE NEB 2.5 MG/3 ML INH 5 MG INHALATION (12:27)
[2022-08-26] MEDS: IPRATROPIUM BR 0.02% INH SOLN 0.5 MG/2.5 ML VIAL INHALATION ×2 (12:28→20:57)
[2022-08-26] MEDS: methylPREDNISolone SOD SUCC 125 MG VIAL IV PUSH (12:37)
--- NOTE | 2022-08-26 14:47 | ECG_ITS ---
Measurements Intervals [place] Rate: 122 P: OK: 0 QRS: -13 QRSD: 94 T: 63 QT: 306 QTc: 438 Interpretive Statements SINUS TACHYCARDIA WITH FREQUENT PREMATURE ATRIAL CONTRACTIONS NONSPECIFIC T-WAVE ABNORMALITY ABNORMAL ECG COMPARED TO ECG 08/26/2022 10:01:16 NO SIGNIFICANT CHANGES Electronically Signed On 08-26-2022 18:05:16 LABELING ASSOCIATE by Luciano Gibson M.D.
[2022-08-26] MEDS: METOPROLOL TARTRATE 50 MG TAB PO (15:07)
[2022-08-26 15:36] LABS: INR 2.5; Prothrombin Time 26.5 Seconds (11.1-14.7)
[2022-08-26 15:37] LABS: Partial Thromboplastin Time 53.4 SECONDS (22.3-36.8)
--- NOTE | 2022-08-26 15:39 | PC.NURSE ---
Pt. stated having an accident, staff wanting to change her and the linens and patient is refusing to have linen and depends changed at this time since she is going upstairs. Pt. states she will take care of it in her room upstairs.
--- NOTE | 2022-08-26 15:40 | PC.NURSE ---
Pt. states she able to walk to the restroom and use toilets normally at home. Pt. has not alerted staff at all about needing to toilet. digital field service technician walked patient to restroom to change depend and toilet.
--- NOTE | 2022-08-26 15:44 | ADMGEN ---
This patient, Laura Clifford, was admitted to [facility] Surg Room 306-02. Patient/family oriented to hospital policies and general routines including ID bracelet, bed and alarms, visiting hours, pain management, procedures, bathroom and other care routines, personal items, smoking policy, room service/diet, and visiting hours. Information on how to activate the Rapid Response Team has been discussed. Patient/Family are encouraged to report perceived risks to care and to ask questions if they do not understand what they are told or what they should do.
--- NOTE | 2022-08-26 17:15 | PM.IMHP ---
H&P: HPI History of Present Illness Date/Time: 08/26/22 17:15 Chief Complaint: Shortness of breath. Narrative: This is a 72-year-old female with history of COPD, coronary artery disease, paroxysmal atrial fibrillation on chronic anticoagulation, hypertension, and rheumatoid arthritis who presented to the emergency department from home for evaluation of shortness of breath. She has not been feeling well for at least 4 to 5 days with symptoms to include body aches, low-grade fever, cough occasionally productive light green sputum, rhinorrhea, generalized malaise, several loose stools a day, and increasing shortness of breath from baseline. She has hardly any injury and her appetite has been very poor. She took a COVID test at home which was negative. She has not had sick contacts to her knowledge. No recent antibiotic use. She denies chest pain, pleuritic pain, nausea, vomiting, and dysuria. She was afebrile on arrival to the ED and blood pressures have been stable. She has been persistently tachycardic since arrival though she has no sensations of racing heart or palpitations. WBC count was normal however she is immunocompromised. Initial troponin was normal and proBNP was minimally elevated at 619. Chest x-ray showed no acute cardiopulmonary abnormality. CT of the chest showed no pulmonary embolus and minimal airspace opacities of the lung apices, likely infection or inflammation. I was asked to admit the patient for COPD exacerbation. Review of Systems Review of Systems: Twelve systems were reviewed and are negative except for as per HPI. [facility] Past Medical History Medical History Chronic anemia Chronic anticoagulation Chronic diarrhea Chronic obstructive pulmonary disease, unspecified Coronary artery disease COVID-19 Cubital tunnel syndrome on right Dyslipidemia Essential hypertension Exocrine pancreatic insufficiency Facial trauma Gastro-esophageal reflux disease without esophagitis Multifocal atrial tachycardia Paroxysmal atrial fibrillation Pneumonia Surgical History Surgical History History of Achilles tendon repair History of bilateral carpal tunnel release History of bilateral knee replacement History of cardiac catheterization History of cataract extraction Left History of colonoscopy with polypectomy History of coronary artery bypass graft x 2 (12/2013) History of hand surgery trigger finger, thumb History of heart artery stent History of mitral valve repair History of shoulder surgery History of spinal surgery Lumbar micro discectomy infusion. Family History Family History Mother Cerebrovascular accident Family history of diabetes mellitus in first degree relative Family history of coronary artery disease Acute myocardial infarction Father Carcinoma of colon Family history of lung cancer Family history of malignant neoplasm of esophagus Sibling Liver disease Liver transplant recipient Other Family history of malignant neoplasm of brain Family history of malignant neoplasm of stomach Social History Social History (Updated 08/26/22 @ 22:10 by Daniela Nix PA-C) Social History: Surrogate medical decision maker: Filippo Ralphabdulaziz, spouse. Code status: Full code. Smoking status: Never smoker Second hand tobacco smoke exposure: Yes Alcohol intake: current Alcohol use details: Rare alcohol use in moderation. Substance use: never Substance use type: does not use Lack of Transportation: No Lack of Food: Never True Current Housing: I Have Housing Concerned About Future Housing: No Difficulty Paying Gas/Electric Bills: No Difficulty Paying for Meds: No Currently Unemployed: No Education: High School Diploma/GED Difficulty w/ Childcare or Family Care: No Additional l
[2022-08-26] MEDS: SOTALOL HCL 80 MG TABLET BY MOUTH (18:30)
[2022-08-26] MEDS: WARFARIN (*PBKC) 1.5 MG TABLET PO (18:36)
--- NOTE | 2022-08-26 18:40 | PC.NURSE ---
Call placed to [facility]را[facility] x 2 to notify of 3 or more stools in 24 hours per admission questions. No return call yet
[2022-08-26] MEDS: METOPROLOL TARTRATE 25 MG TABLET PO (20:39)
[2022-08-26] MEDS: ALBUTEROL SULFATE NEB 2.5 MG/3 ML INH INHALATION (20:58)
[2022-08-26] MEDS: DOXYCYCLINE 100 MG/NS 100 ML 100 MG/100 ML BAG IVPB (23:02)
[2022-08-27] VITALS (8 sets, daily range): BP systolic 126; BP diastolic 57; PULSE 99–123; RESP 18; TEMP 36.5; O2SAT 93
--- NOTE | 2022-08-27 05:35 | PCRCNOTE ---
Window of time for administration has passed. See next scheduled administration.
[2022-08-27 06:35] LABS: Hematocrit 34.5 % (37.0-47.0); Hemoglobin 10.5 g/dL (12.0-15.0); Mean Corpuscular HGB Conc 30.4 g/dl (32-36); Mean Corpuscular Hemoglobin 23.5 pg (26-34); Mean Corpuscular Volume 77.4 fl (80-100); Mean Platelet Volume 11.4 fl (7.4-10.4); Platelet Count Result 292 k/mm3 (150-375); Red Blood Count 4.46 M/mm3 (4.2-5.4); Red Cell Distribution Width 17.2 % (11.5-14.5); White Blood Count 7.4 K/mm3 (4.5-10.0)
[2022-08-27 07:03] LABS: Anion Gap 7 mmol/L (8-16); Blood Urea Nitrogen 22 mg/dL (7-17); CRP 8.6 mg/dL (<1.0); Calcium 8.5 mg/dL (8.4-10.2); Carbon Dioxide 25 mmol/L (22-30); Chloride 102 mmol/L (98-107); Estimated Glomerular Filt Rate > 60; Glucose 244 mg/dL (65-110); Magnesium 1.6 mg/dL (1.6-2.3); Potassium 3.2 mmol/L (3.4-5.0); Sodium 134 mmol/L (137-145)
[2022-08-27 07:29] LABS: Thyroid Stimulating Hormone Reflex 0.553 uIU/mL (0.465-4.68)
[2022-08-27 07:31] LABS: Procalcitonin 0.2 ng/mL
[2022-08-27] MEDS: METOPROLOL TARTRATE 25 MG TABLET PO (07:45)
[2022-08-27] MEDS: PANTOPRAZOLE 40 MG TABLET PO (07:45)
[2022-08-27] MEDS: LEFLUNOMIDE 20 MG TABLET PO (07:45)
[2022-08-27] MEDS: guaiFENesin 12 HR 600 MG TABCR PO (07:45)
[2022-08-27] MEDS: POTASSIUM CHLORIDE 10 MEQ TABLET.ER 20 MEQ PO (07:45)
[2022-08-27] MEDS: SOTALOL HCL 80 MG TABLET BY MOUTH (07:46)
[2022-08-27] MEDS: PRAVASTATIN SODIUM 10 MG TABLET PO (07:46)
[2022-08-27] MEDS: IPRATROPIUM BR 0.02% INH SOLN 0.5 MG/2.5 ML VIAL INHALATION (10:16)
[2022-08-27] MEDS: ALBUTEROL SULFATE NEB 2.5 MG/3 ML INH INHALATION (10:16)
--- NOTE | 2022-08-27 11:14 | PM.DS ---
DS: Admitting Diagnosis Discharge Date 08/27/2022 1115 Admitting Diagnosis HypoxiaViral syndrome Chronic obstructive pulmonary disease, acute exacerbation H/O Paroxysmal atrial fibrillation Chronic anticoagulation Chronic anemia DS: Discharge Diagnosis Discharge Diagnosis (1) Hypoxia: Code(s): R09.02 - Hypoxemia Status: Acute (2) Chronic obstructive pulmonary disease: Code(s): J44.9 - Chronic obstructive pulmonary disease, unspecified Status: Acute (3) Viral syndrome: Code(s): B34.9 - Viral infection, unspecified Status: Acute (4) Chronic anemia: Code(s): D64.9 - Anemia, unspecified Status: Chronic (5) Paroxysmal atrial fibrillation: Code(s): I48.0 - Paroxysmal atrial fibrillation Status: Chronic (6) Chronic anticoagulation: Code(s): Z79.01 - local [employer] (current) use of anticoagulants Status: Chronic DS: Summary Hospital Course Reason for hospitalization: shortness of breath Hospital Course: Laura Clifford is a 72-year-old female with history of COPD, coronary artery disease, paroxysmal atrial fibrillation on chronic anticoagulation, hypertension, and rheumatoid arthritis who presented to the emergency department from home for evaluation of shortness of breath. She reported not feeling well for at least 4 to 5 days prior to admission with symptoms of body aches, low-grade fever, occasionally productive cough with light green sputum, rhinorrhea, generalized malaise, several loose stools per day, and increasing shortness of breath from baseline. Her appetite has been poor. She took a COVID test at home which was negative. She has not had sick contacts to her knowledge. No recent antibiotic use. She denied chest pain, pleuritic pain, nausea, vomiting, and dysuria. She was afebrile on arrival to the ED and blood pressures were stable. She was noted to have tachycardia since arrival to the hospital, but denied sensations of racing heart or palpitations. WBC count was normal, however she is immunocompromised due to RA treatment. Initial troponin was normal and proBNP was minimally elevated at 619. Chest x-ray showed no acute cardiopulmonary abnormality. CT of the chest showed no pulmonary embolus and minimal airspace opacities of the lung apices, likely infection or inflammation. She was admitted for COPD exacerbation and upper respiratory infection. She was treated with IV doxycycline 100 mg BID and Rocephin 1 gram IV Q24 hours. Additionally, she was treated with duonebs scheduled. SpO2 upon admission was 88% on room air and improved with supplemental oxygen. Her symptoms improved and she was weaned to room air with adequate saturations and resolution of dyspnea. ABG was unremarkable. Repeat CBC and BMP were unremarkable except for mildly low potassium 3.2, which was replaced with oral supplement. The patient reported resolution of symptoms on the day of discharge and vocalized she was at baseline, ready to return home. She was discharged on oral doxycycline and cefdinir to complete total 5-day antibiotic course. She was discharged home in stable condition. Status at Discharge Cognitive/behavioral status at discharge: Alert and oriented x4, baseline cognition Functional status at discharge: independent ambulation Overall status at discharge: patient is progressing back to baseline Time Spent with Patient Time attestation: Total time spent providing and/or coordinating discharge services: Time spent: Greater than 30 minutes Exam Narrative: General: no acute distress. sitting up in bed. Temp 97.7, HR 102, RR 16, BP 126/57, spO2 93% room air HEENT: Normocephalic, atraumatic. PERRL, EOMI. Sclera anicteric. moist mucous membranes. Neck: Supple. No lymphadenopathy or JVD. Respiratory: Respirations are nonlabored. Lung sounds diminished at the bases but are otherwise clear to auscultation. No rhonchi or rales. Cardiovascular: normal S1-S2 regular rate and rhy
[2022-08-29 21:07] LABS: Mycoplasma IgM Antibody Titer 46 U/mL (<770)
[2022-09-03 22:09] LABS: Pneumococcal Antigen Urine Not Detected (Not Detected)
[2022-09-04 16:18] LABS: Legionella pneumophila Ag Ur Not Detected (Not Detected)
== END 2022-08-27 12:18 | disposition home or self-care (01) ==
LOC: ANHED 12:21 → ANH3MEDSUR 15:27
PROVIDERS: Physician Assistant; Admitting Provider Chiropractor; Emergency Provider Family Medicine; PCP Family Medicine; Visit Provider Family Medicine
DX: R09.02 Hypoxemia (principal); J44.9 Chronic obstructive pulmonary disease, unspecified; B34.9 Viral infection, unspecified; D64.9 Anemia, unspecified; I48.0 Paroxysmal atrial fibrillation; R53.81 Other malaise; I44.0 Atrioventricular block, first degree; R00.0 Tachycardia, unspecified; R63.0 Anorexia; R94.31 Abnormal electrocardiogram [ECG] [EKG]; Z95.2 Presence of prosthetic heart valve; R19.7 Diarrhea, unspecified; R50.9 Fever, unspecified; Z20.822 Contact with and (suspected) exposure to COVID-19; M79.89 Other specified soft tissue disorders; M06.9 Rheumatoid arthritis, unspecified; I25.10 Atherosclerotic heart disease of native coronary artery without angina pectoris; Z95.5 Presence of coronary angioplasty implant and graft; E78.5 Hyperlipidemia, unspecified; I10 Essential (primary) hypertension; K21.9 Gastro-esophageal reflux disease without esophagitis; F10.90 Alcohol use, unspecified, uncomplicated; Z86.16 Personal history of COVID-19; Z87.01 Personal history of pneumonia (recurrent); Z79.01 Long term (current) use of anticoagulants; Z79.899 Other long term (current) drug therapy; Z84.89 Family history of other specified conditions
CPT/HCPCS: 36415; 36600; 71046; 71275; 80048; 80053; 82805; 83605; 83735; 83880; 84145; 84443; 84484; 85025; 85027; 85610; 85730; 86140; 86738; 87070; 87205; 87449; 87636; 87899; 93005; 94640; 96374; 96375; 99285; A9270; G0378; J0696; J1940; J2930; Q9967

== ENCOUNTER 2022-09-11 09:26 | Outpatient (CLI) | payer MEDICARE, SELFPAY ==
[2022-09-11 09:59] LABS: Anion Gap 2 mmol/L (8-16); Blood Urea Nitrogen 14 mg/dL (7-17); Calcium 8.6 mg/dL (8.4-10.2); Carbon Dioxide 31 mmol/L (22-30); Chloride 99 mmol/L (98-107); Estimated Glomerular Filt Rate > 60; Glucose 143 mg/dL (65-110); Potassium 3.6 mmol/L (3.4-5.0); Sodium 132 mmol/L (137-145)
== END 2022-09-11 09:27 | disposition home or self-care (01) ==
PROVIDERS: PCP Family Medicine; Visit Provider Family Medicine
DX: E87.6 Hypokalemia (principal); I48.0 Paroxysmal atrial fibrillation
CPT/HCPCS: 36415; 80048

== ENCOUNTER 2022-09-11 09:29 | Outpatient (RCR) | payer MEDICARE, SELFPAY ==
[2022-07-16 10:46] LABS: INR 2.1
[2022-08-08 09:52] LABS: INR 2.8
[2022-09-11 10:00] LABS: INR 3.7; Prothrombin Time 35.2 Seconds (11.1-14.7)
== END 2022-10-14 23:59 | disposition home or self-care (01) ==
LOC: ANHLAB 09:29
PROVIDERS: PCP Family Medicine; Visit Provider Internal Medicine Cardiovascular Disease
DX: I25.719 Atherosclerosis of autologous vein coronary artery bypass graft(s) with unspecified angina pectoris (principal)
CPT/HCPCS: 36415; 85610

== ENCOUNTER 2022-11-05 13:09 | Outpatient (CLI) | payer MEDICARE, SELFPAY ==
[2022-11-05 13:36] LABS: Hematocrit 37.9 % (37.0-47.0); Mean Corpuscular Hemoglobin 23.1 pg (26-34); Mean Corpuscular Volume 79.6 fl (80-100); Platelet Count Result 304 k/mm3 (150-375); Red Blood Count 4.76 M/mm3 (4.2-5.4); Red Cell Distribution Width 23.3 % (11.5-14.5); White Blood Count 7.4 K/mm3 (4.5-10.0)
[2022-11-05 13:47] LABS: Alanine Aminotransferase 19 U/L (6-35); Albumin Level 3.7 g/dL (3.5-5.1); Alkaline Phosphatase 84 U/L (38-126); Aspartate Amino Transferase 22 U/L (14-36); Bilirubin,Total 0.6 mg/dL (0.2-1.3); Estimated Glomerular Filt Rate > 60
== END 2022-11-05 13:10 | disposition home or self-care (01) ==
PROVIDERS: PCP Family Medicine
DX: Z79.899 Other long term (current) drug therapy (principal)
CPT/HCPCS: 36415; 80076; 82565; 85027; 85610

== ENCOUNTER 2022-11-05 13:14 | Outpatient (RCR) | payer MEDICARE, SELFPAY ==
[2022-11-05 13:49] LABS: INR 2.1
== END 2023-02-03 23:59 | disposition home or self-care (01) ==
LOC: ANHLAB 13:14
PROVIDERS: PCP Family Medicine; Visit Provider Internal Medicine Cardiovascular Disease
DX: I25.719 Atherosclerosis of autologous vein coronary artery bypass graft(s) with unspecified angina pectoris (principal)
CPT/HCPCS: 36415; 85610

== ENCOUNTER 2022-11-20 17:00 | Inpatient (IN) | payer MEDICARE, SELFPAY ==
--- NOTE | ~2022-11-20 | XR_ITS ---
XR chest 2V DATE: 11/20/2022 17:49 INDICATION: Dyspnea. Low oxygen saturation. TECHNIQUE: PA and lateral views COMPARISON: 08/26/2022 CT pulmonary scan 08/26/2022 PA and lateral chest FINDINGS: Status post sternotomy and mitral valve replacement. Heart size is normal. Compared to 08/26/2022 there is mild prominence of the pulmonary vasculature, fissures and slight john nting of the costophrenic angles. Mild bilateral pulmonary infiltrates. Status post right glenohumeral joint replacement IMPRESSION: Mild congestive changes Reviewed, dictated and finalized at [facility]. IMPRESSION: Mild congestive changes
--- NOTE | ~2022-11-20 | XR_ITS ---
Supine portable views of the abdomen Clinical history: Nausea and vomiting Findings: Bowel gas pattern is nonspecific. No evidence for obstruction or free air. No abnormal mass lesion or calcification is seen. Diffuse degenerative change in the lumbar spine noted. Impression: Nonspecific bowel gas pattern. Reviewed, dictated and finalized at [facility]. Impression: Nonspecific bowel gas pattern.
--- NOTE | ~2022-11-20 | CT_ITS ---
EXAMINATION: CTA chest PE protocol DATE: 11/20/2022 19:12 INDICATION: Dyspnea. Recently treated for pneumonia. TECHNIQUE: Computed tomography angiography (CTA) of the chest was performed with 100 mL Omnipaque-350 intravenous contrast timed to evaluate the pulmonary arteries. Coronal maximum intensity projection 3D-reconstructions were created by the technologist. Automated exposure control and iterative reconst ruction technique were employed. Exam dose: 898.51 mGy-cm total exam DLP. COMPARISON: 11/20/2022 2 view chest 08/26/2022 CT pulmonary scan FINDINGS: There is diagnostic contrast enhancement of the pulmonary arteries and no evidence of pulmo nary embolism. There is old pulmonary granulomatous disease. Status post sternotomy and mitral valve replacement. Normal heart size. No thoracic aortic aneurysm. No hilar or mediastinal mass lesion or lymphadenopathy. There is patchy groundglass densities scattered throughout both lungs which may be due to small airwa ys disease, atelectasis and/or pneumonia. Postoperative change of the lower cervical spine. Degenerative spurring of the thoracic spine. Right glenohumeral arthroplasty. IMPRESSION: No evidence of pulmonary embolus Scattered patchy groundglass infiltrates throughout both lungs which may be due to small airways dise ase, atelectasis and/or pneumonia Reviewed, dictated and finalized at [facility]. Reviewed, dictated and finalized at [facility]. IMPRESSION: No evidence of pulmonary embolus Scattered patchy groundglass infiltrates throughout both lungs which may be due to small airways disease, atelectasis and/or pneumonia
[2022-11-20 17:01] VITALS: BP 198/123; PULSE 60; RESP 22; TEMP 36.4; O2SAT 89
--- NOTE | 2022-11-20 17:06 | ECG_ITS ---
Measurements Intervals [place] Rate: 108 P: 45 IA: 193 QRS: -19 QRSD: 98 T: 37 QT: 348 QTc: 467 Interpretive Statements SINUS TACHYCARDIA ATRIAL COUPLETS AND ATRIAL PREMATURE COMPLEXES BASELINE ARTIFACT- V4-V6 ABNORMAL ECG COMPARED TO ECG 08/26/2022 14:55:33 NO SIGNIFICANT CHANGES Electronically Signed On 11-20-2022 20:48:09 CDT by Miky Sorensen D.O.
--- NOTE | 2022-11-20 17:06 | ED.SOB ---
HPI - SOB/Dyspnea General Chief Complaint: Shortness of Breath/Dyspnea Stated Complaint: DYSPNEA Time Seen by Provider: 11/20/22 17:05 Source: patient and EMS Mode of arrival: EMS Limitations: no limitations History of Present Illness HPI Narrative: Patient is a 72-year-old female with history of COPD, hypertension, hyperlipidemia, atrial fibrillation on chronic anticoagulation presenting to the emergency department for evaluation of cough and shortness of breath. Patient reports history of pneumonia diagnosed while she was vacationing in [place], patient was hospitalized for 5 days. She states she tested negative for COVID with that admission. Patient is unsure what antibiotics she was on. Patient was seen at her primary care physician's office today and noted to be hypoxic on room air down to 82% when laying flat. Patient does report shortness of breath. EKG was performed at primary care physician's office notable for atrial fibrillation. Patient is compliant with her anticoagulation. Pt reports history of COPD, but denies smoking history. She reports slight wheezing. She denies hemoptysis. No chest pain. No fever. Related Data Home Medications Medication Instructions Recorded Confirmed leflunomide 20 mg tablet 20 mg PO DAILY 07/04/19 11/20/22 furosemide 40 mg tablet 40 mg PO DAILY 08/06/21 11/20/22 metoprolol tartrate 25 mg tablet 25 mg PO BID 07/09/22 11/20/22 potassium chloride 10 mEq 20 meq PO DAILY 07/09/22 11/20/22 tablet,extended release Allergies Allergy/AdvReac Type Severity Reaction Status Date / Time ciprofloxacin Allergy Mild Unknown Verified 11/20/22 15:39 codeine Allergy Unknown Unknown Verified 11/20/22 15:39 levofloxacin Allergy Unknown Unknown Verified 11/20/22 15:39 lisinopril Allergy Unknown Unknown Verified 11/20/22 15:39 Review of Systems Review of Systems: CONSTITUTIONAL: Denies fever, chills, or sweats. EYES: Denies visual changes, redness, or discharge. ENT: Denies rhinorrhea, congestion, sore throat, or otalgia. CARDIOVASCULAR: Denies chest pain, palpitations, or edema. RESPIRATORY: Reports cough and dyspnea GASTROINTESTINAL: Denies abdominal pain, nausea, vomiting, or diarrhea. GENITOURINARY: Denies dysuria or hematuria. SKIN: Denies rash or itching. MUSCULOSKELETAL: Denies back pain, joint pain, or myalgia. NEUROLOGIC: Denies headache, numbness, or weakness. [facility] Past Medical History Medical History BMI over 35 Chronic anemia Chronic anticoagulation Chronic diarrhea Chronic obstructive pulmonary disease, unspecified Coronary artery disease COVID-19 Cubital tunnel syndrome on right Dyslipidemia Essential hypertension Exocrine pancreatic insufficiency Facial trauma Gastro-esophageal reflux disease without esophagitis Multifocal atrial tachycardia Paroxysmal atrial fibrillation Pneumathemia Pneumonia Small vessel disease, cerebrovascular TIA (transient ischemic attack) Surgical History Surgical History H/O endoscopy History of Achilles tendon repair History of bilateral carpal tunnel release History of bilateral knee replacement History of cardiac catheterization History of cataract extraction Left History of colonoscopy with polypectomy History of coronary artery bypass graft x 2 (12/2013) History of hand surgery trigger finger, thumb History of heart artery stent History of mitral valve repair History of shoulder surgery History of spinal surgery Lumbar micro discectomy infusion. Family History Family History Mother Cerebrovascular accident Family history of diabetes mellitus in first degree relative Family history of coronary artery disease Acute myocardial infarction Father Carcinoma of colon Family history of lung cancer Family history of malignant neoplasm of esophagus Deceas
[2022-11-20 17:29] LABS: Alveolar/Arterial O2 Gradient 92.8 mmHg; Base Excess ABG 0.9 mEq/l (+/-2.0); Fractional Inspired Oxygen 30 %; HCO3 ABG 25.5 mEq/l (22.0-26.0); Oxygen Content ABG 14.3 %vol (16.0-22.0); Oxyhemoglobin 91.5 % THb (90.0-100.0); PCO2 ABG 40.6 mmHg (35.0-45.0); PO2 ABG 73.4 mmHg (80.0-100.0); PO2 FiO2 Ratio Arterial Blood 2.45 %; Total Hemoglobin 11.1 g/dL (12.0-18.0); pH ABG 7.416 (7.350-7.450)
[2022-11-20 17:31] LABS: Device ROOM AIR; Site Drawn LEFT BRACHIAL
[2022-11-20 18:11] VITALS: BP 163/83; PULSE 109; RESP 23; O2SAT 98
[2022-11-20 18:23] VITALS: O2SAT 98
[2022-11-20] MEDS: methylPREDNISolone SOD SUCC 125 MG VIAL IV PUSH (18:26)
[2022-11-20] MEDS: ALBUTEROL SULFATE NEB 2.5 MG/3 ML INH 5 MG INHALATION (18:35)
[2022-11-20] MEDS: IPRATROPIUM BR 0.02% INH SOLN 0.5 MG/2.5 ML VIAL INHALATION ×2 (18:35→21:50)
[2022-11-20 18:36] VITALS: PULSE 105; RESP 22
[2022-11-20 18:40] LABS: Basophils Absolute Auto 0.1 K/mm3 (0.0-0.1); Basophils Percent Auto 1.4 % (0.2-1.2); Eosinophils Absolute Auto 0.2 K/mm3 (0-0.3); Eosinophils Percent Auto 2.7 % (0-4.4); Hematocrit 38.7 % (37.0-47.0); Hemoglobin 11.2 g/dL (12.0-15.0); Immature Granulocyte Absolute 0.04 K/mm3 (0.00-0.031); Immature Granulocyte Percent A 0.5 % (0-0.5); Immature Platelet Fraction Pct 6.6 % (0.9-11.2); Lymphocytes Absolute Auto 1.59 K/mm3 (0.9-3.2); Lymphocytes Percent Auto 20.5 % (18.3-44.2); Mean Corpuscular HGB Conc 28.9 g/dl (32-36); Mean Corpuscular Hemoglobin 22.8 pg (26-34); Mean Corpuscular Volume 78.8 fl (80-100); Mean Platelet Volume 10.6 fl (7.4-10.4); Monocytes Absolute Auto 0.9 K/mm3 (0.1-0.6); Monocytes Percent Auto 10.9 % (2.6-8.5); Platelet Count Result 317 k/mm3 (150-375); Red Blood Count 4.91 M/mm3 (4.2-5.4); Red Cell Distribution Width 22.2 % (11.5-14.5); White Blood Count 7.8 K/mm3 (4.5-10.0)
[2022-11-20 18:43] LABS: Alanine Aminotransferase 19 U/L (6-35); Alkaline Phosphatase 90 U/L (38-126); Anion Gap 5 mmol/L (8-16); Aspartate Amino Transferase 27 U/L (14-36); Bilirubin,Total 0.5 mg/dL (0.2-1.3); Blood Urea Nitrogen 13 mg/dL (7-17); Calcium 8.9 mg/dL (8.4-10.2); Carbon Dioxide 30 mmol/L (22-30); Chloride 103 mmol/L (98-107); Estimated CRCL calculation 83 ml/min; Estimated Glomerular Filt Rate > 60; Glucose 132 mg/dL (65-110); Potassium 3.9 mmol/L (3.4-5.0); Sodium 138 mmol/L (137-145)
[2022-11-20] MEDS: FUROSEMIDE INJ 40 MG/4 ML VIAL IV PUSH (18:48)
[2022-11-20 18:50] VITALS: PULSE 84; RESP 13
[2022-11-20 18:51] LABS: INR 3.9; Prothrombin Time 37.1 Seconds (11.1-14.7)
[2022-11-20 18:52] LABS: Partial Thromboplastin Time 49.7 SECONDS (22.3-36.8)
[2022-11-20 18:54] LABS: NT Pro B Type Natriuretic Pept 367 pg/mL (19.9-100); Troponin I < 0.012 ng/mL (0.000-0.034)
[2022-11-20 19:02] LABS: Anisocytosis 1+ (NORMAL); Hypochromasia 1+ (NORMAL); Ovalocytes 1+ (NORMAL); Platelet Estimate Adequate (Adequate); Schistocytes None Seen (NORMAL)
--- NOTE | 2022-11-20 20:00 | PM.IMHP ---
H&P: HPI History of Present Illness Date/Time: 11/20/22 20:00 Chief Complaint: Generalized weakness Narrative: This is a 72-year-old female with past medical history significant for type diabetes mellitus, dyslipidemia, chronic anemia, chronic anticoagulation, hypertension, GERD, paroxysmal atrial fibrillation. Patient presents to the emergency room due to generalized weakness, night sweats, recently treated for pneumonia while vacationing in [place] this was roughly 4 weeks ago. Patient went to see her primary care physician she has not been feeling quite right denies any cough or sputum production but has had shortness of breath and poor appetite. Preliminary workup was significant for a chest x-ray was reported as: FINDINGS: Status post sternotomy and mitral valve replacement. Heart size is normal. Compared to 08/26/2022 there is mild prominence of the pulmonary vasculature, fissures and slight blunting of the costophrenic angles.? Mild bilateral pulmonary infiltrates. Status post right glenohumeral joint replacement IMPRESSION: Mild congestive changes? A CT angiogram PE protocol was reported as: FINDINGS: There is diagnostic contrast enhancement of the pulmonary arteries and no evidence of pulmonary embolism. There is old pulmonary granulomatous disease. Status post sternotomy and mitral valve replacement. Normal heart size. No thoracic aortic aneurysm. No hilar or mediastinal mass lesion or lymphadenopathy. There is patchy groundglass densities scattered throughout both lungs which may be due to small airways disease, atelectasis and/or pneumonia. Postoperative change of the lower cervical spine. Degenerative spurring of the thoracic spine. Right glenohumeral arthroplasty. IMPRESSION:? No evidence of pulmonary embolus Scattered patchy groundglass infiltrates throughout both lungs which may be due to small airways disease, atelectasis and/or pneumonia Review of Systems Review of Systems: Generalized weakness, night sweats, poor appetite, shortness of breath, recent pneumonia. Constitutional: Constitutional: Reports chills, Reports fatigue, Reports lethargy, Reports malaise, Reports night sweats, Reports poor appetite and Reports weakness Eyes: Eyes: Denies change in vision ENT: Denies dysphagia and Denies odynophagia Cardiovascular: Cardiovascular: Denies chest pain and Denies palpitations Respiratory: Respiratory: Denies chest congestion, Denies cough, Denies excessive phlegm production, Denies pain on inspiration and Reports dyspnea Gastrointestinal: Gastrointestinal: Denies abdominal pain, Denies dyspepsia, Denies heartburn, Denies diarrhea, Denies nausea and Denies vomiting Genitourinary: Genitourinary: Reports no additional female genitourinary complaints and Reports as per HPI Musculoskeletal: Musculoskeletal: Reports muscle weakness Integumentary/Breasts: Skin/Breast: Denies rash Neurologic: Denies focal weakness and Denies Sensory deficit (Neuro) Psychiatric: Psychiatric: Reports no additional psychiatric complaints and Reports as per HPI Endocrine: Endocrine: Denies cold intolerance, Denies flushing, Denies heat intolerance, Denies polyphagia, Denies polydipsia and Denies palpitations Hematologic/Lymphatic: Hematologic/Lymphatic: Reports no additional hematologic/lymphatic complaints and Reports as per HPI Allergic/Immunologic: Allergic/Immunologic: Reports no additional allergic/immunologic complaints and Reports as per HPI PMFSH Past Medical History Medical History BMI over 35 Chronic anemia Chronic anticoagulation Chronic diarrhea Chronic obstructive pulmonary disease, unspecified Coronary artery disease COVID-19 Cubital tunnel syndrome on right Dyslipidemia Essential hypertension Exocrine pancreatic insufficiency Facial trauma Gastro-esophageal reflux disease without esophagitis Multifocal atrial tachycardia Paroxysmal atrial fibrillatio
[2022-11-20 20:27] LABS: Influenza A QL RT-PCR Negative (Negative); Influenza B QL RT-PCR Negative (Negative); RSV RNA, RT-PCR Negative (Negative); SARS-CoV-2 RNA PCR Negative
[2022-11-20] MEDS: CEFEPIME 2 GM/NS 50 ML 2 GM/50 ML BAG IVPB (20:37)
[2022-11-20] MEDS: ALBUTEROL SULFATE NEB 2.5 MG/3 ML INH INHALATION (21:50)
[2022-11-20 23:34] VITALS: BP 148/73; PULSE 103; RESP 20; TEMP 36.4; O2SAT 95
[2022-11-20] MEDS: METOPROLOL TARTRATE 25 MG TABLET PO (23:39)
[2022-11-20] MEDS: SOTALOL HCL 80 MG TABLET BY MOUTH (23:39)
[2022-11-20] MEDS: methylPREDNISolone SOD SUCC 125 MG VIAL 60 MG IV PUSH (23:39)
[2022-11-21] VITALS (15 sets, daily range): BP systolic 136–137; BP diastolic 69–76; PULSE 88–109; RESP 14–20; TEMP 36.3–36.9; O2SAT 91–99
--- NOTE | 2022-11-21 | ECHO_ITS ---
Patient Info Name: Laura Clifford Age: 72 years : 1950 Gender: Female Ht: 64 in Wt: 209 lbs BSA: 2.11 m2 HR: 95 bpm BP: 87 / 47 mmHg Technical Quality: Good Exam Date: 11/21/2022 11:23 AM Exam Location: [facility] Patient Status: Inpatient Admit Date: 11/20/2022 Staff Ordering Physician: Terence Ortiz Director Epidemiology: Son Brown RDCS, RT Attending Provider: Eryn David MD Exam Type: CA echo doppler w bubble study Study Info Complete two-dimensional, color flow and Doppler transthoracic echocardiogram is performed. Strain analysis performed. Summary 1. Complete two-dimensional, color flow and Doppler transthoracic echocardiogram is performed. 2. Left ventricular chamber dimension is normal. 3. Left ventricular systolic function is normal, estimated at 60-65%. 4. There is moderate concentric increased left ventricular wall thickness. 5. The left ventricular diastolic function is abnormal. 6. E/e' 28 is elevated. 7. Left atrial chamber dimension is moderately enlarged. 8. There is mild aortic valve sclerosis. 9. The mitral valve has mildly calcified leaflets and moderately calcified annulus. 10. There is trace mitral valve regurgitation. 11. There is mild tricuspid valve regurgitation. 12. Moderate pulmonary hypertension, estimated pulmonary arterial systolic pressure is 59 mmHg. 13. There is trace pulmonic regurgitation. 14. Dilated inferior vena cava with >50% collapse upon inspiration consistent with elevated right atrial pressure, 10 mmHg. Left Ventricle E/e' 28 is elevated. Left ventricular chamber dimension is normal. Left ventricular systolic function is normal, estimated at 60-65%. There is moderate concentric increased left ventricular wall thickness. The left ventricular diastolic function is abnormal. Right Ventricle Right ventricular systolic function is normal and with normal TAPSE 1.8 cm. Right ventricular chamber dimension is normal. Left Atria Left atrial chamber dimension is moderately enlarged. Right Atria Right atrial chamber dimension is normal. Atrial Septum Agitated saline injection with and without valsalva maneuver opacified right side cardiac chambers without shunt to left side cardiac chambers. Intact interatrial septum visualized by 2D and agitated saline imaging. Aortic Valve The aortic valve is trileaflet. There is mild aortic valve sclerosis. There is no aortic valve stenosis. There is no aortic valve regurgitation. Pulmonic Valve There is trace pulmonic regurgitation. Mitral Valve The mitral valve has mildly calcified leaflets and moderately calcified annulus. There is no mitral valve stenosis. There is trace mitral valve regurgitation. Tricuspid Valve There is mild tricuspid valve regurgitation. Moderate pulmonary hypertension, estimated pulmonary arterial systolic pressure is 59 mmHg. Pericardium/Pleural There is no pericardial effusion. Inferior Vena Cava Dilated inferior vena cava with >50% collapse upon inspiration consistent with elevated right atrial pressure, 10 mmHg. Aorta The aortic root size at the sinus of Valsalva is normal. Left Ventricular Outflow Tract Name Value Normal LVOT 2D LVOT Diameter
[2022-11-21] MEDS: CEFEPIME 2 GM/NS 50 ML 2 GM/50 ML BAG IVPB ×3 (05:32→20:47)
[2022-11-21] MEDS: methylPREDNISolone SOD SUCC 125 MG VIAL 60 MG IV PUSH ×3 (05:32→17:17)
[2022-11-21 07:58] LABS: Estimated CRCL calculation 83 ml/min; Estimated Glomerular Filt Rate > 60
[2022-11-21] MEDS: ALBUTEROL SULFATE NEB 2.5 MG/3 ML INH INHALATION ×3 (08:24→20:34)
[2022-11-21] MEDS: IPRATROPIUM BR 0.02% INH SOLN 0.5 MG/2.5 ML VIAL INHALATION ×3 (08:24→20:33)
[2022-11-21] MEDS: PRAVASTATIN SODIUM 10 MG TABLET BY MOUTH (09:07)
[2022-11-21] MEDS: SOTALOL HCL 80 MG TABLET BY MOUTH ×2 (09:07→20:48)
[2022-11-21] MEDS: METOPROLOL TARTRATE 25 MG TABLET PO ×2 (09:07→17:17)
[2022-11-21] MEDS: LEFLUNOMIDE 20 MG TABLET PO ×2 (09:08→20:48)
[2022-11-21] MEDS: PANTOPRAZOLE 40 MG TABLET PO (09:08)
--- NOTE | 2022-11-21 10:00 | P.PNIM_ITS ---
Progress Note: A&P Assessment and Plan (1) Pneumonia: Code(s): J18.9 - Pneumonia, unspecified organism Status: Acute Assessment and Plan: * presented with complaints of shortness of breath, dyspnea * was treated in [place] for pneumonia and for a about 3 weeks ago and appears to have failed outpatient antibiotics or treatment * CT shows scattered patchy ground-glass infiltrates throughout both lungs atelectasis versus pneumonia * continue vancomycin cefepime for now * neb treatments ordered * sputum culture ordered * blood culture pending * white count is stable * trend labs * supplemental oxygen wean to maintain saturations greater than 90% (2) Respiratory failure: Code(s): J96.90 - Respiratory failure, unspecified, unspecified whether with hypoxia or hypercapnia Status: Acute Assessment and Plan: * saturations noted to be 85% on room air * supplemental oxygen provided * ABG shows respiratory alkalosis * patient does exhibit tripoding, loss of voice, unable to hold a conversation, and labored breathing * Supplemental oxygen provided, wean to maintain saturations >90% * Pulmonology consulted thank you for helping * Could be secondary to COPD and PNA * Continue to trend respiratory status Supplemental oxygen by nasal cannula Likely secondary to pneumonia Continue to monitor (3) Congestive heart failure: Code(s): I50.9 - Heart failure, unspecified Status: Acute Assessment and Plan: * Echo does show an EF 60-65% grade 1 diastolic heart failure, pulmonary hypert ension noted * Lasix 40mg bid x 3 doses * Trend urine output * Trend daily weight * Seems to be an acute chronic diastolic heart failure in acute exacerbation * BNP 367 (4) 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 Emphysema type: unspecified Qualified Code(s): J43.9 - Emphysema, unspecified Code(s): J44.9 - Chronic obstructive pulmonary disease, unspecified Status: Acute Assessment and Plan: * Breathing treatments ordered * CTA did not indicate any emphysema * Pulmonology consulted at this time * Continue to trend respiratory status * Supplemental oxygen provided wean to maintain saturations >90% * Sputum culture ordered * Continue IV antibiotics * Continue steroids for now, titrate down when able (5) Acute hypoxemic respiratory failure: Code(s): J96.01 - Acute respiratory failure with hypoxia Status: Acute Assessment and Plan: * On supplemental oxygen * see above (6) Paroxysmal atrial fibrillation: Code(s): I48.0 - Paroxysmal atrial fibrillation Status: Chronic Assessment and Plan: * Rate controlled and anticoagulated * Continue home medications (7) 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
--- NOTE | 2022-11-21 10:00 | PM.IMPN ---
Progress Note: A&P Assessment and Plan (1) Pneumonia: Code(s): J18.9 - Pneumonia, unspecified organism Status: Acute Assessment and Plan: presented with complaints of shortness of breath, dyspnea was treated in [place] for pneumonia and for a about 3 weeks ago and appears to have failed outpatient antibiotics or treatment CT shows scattered patchy ground-glass infiltrates throughout both lungs atelectasis versus pneumonia continue vancomycin cefepime for now neb treatments ordered sputum culture ordered blood culture pending white count is stable trend labs supplemental oxygen wean to maintain saturations greater than 90% (2) Respiratory failure: Code(s): J96.90 - Respiratory failure, unspecified, unspecified whether with hypoxia or hypercapnia Status: Acute Assessment and Plan: saturations noted to be 85% on room air supplemental oxygen provided ABG shows respiratory alkalosis patient does exhibit tripoding, loss of voice, unable to hold a conversation, and labored breathing Supplemental oxygen provided, wean to maintain saturations >90% Pulmonology consulted thank you for helping Could be secondary to COPD and PNA Continue to trend respiratory status Supplemental oxygen by nasal cannula Likely secondary to pneumonia Continue to monitor (3) Congestive heart failure: Code(s): I50.9 - Heart failure, unspecified Status: Acute Assessment and Plan: Echo does show an EF 60-65% grade 1 diastolic heart failure, pulmonary hypertension noted Lasix 40mg bid x 3 doses Trend urine output Trend daily weight Seems to be an acute chronic diastolic heart failure in acute exacerbation BNP 367 (4) 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 Emphysema type: unspecified Qualified Code(s): J43.9 - Emphysema, unspecified Code(s): J44.9 - Chronic obstructive pulmonary disease, unspecified Status: Acute Assessment and Plan: Breathing treatments ordered CTA did not indicate any emphysema Pulmonology consulted at this time Continue to trend respiratory status Supplemental oxygen provided wean to maintain saturations >90% Sputum culture ordered Continue IV antibiotics Continue steroids for now, titrate down when able (5) Acute hypoxemic respiratory failure: Code(s): J96.01 - Acute respiratory failure with hypoxia Status: Acute Assessment and Plan: On supplemental oxygen see above (6) Paroxysmal atrial fibrillation: Code(s): I48.0 - Paroxysmal atrial fibrillation Status: Chronic Assessment and Plan: Rate controlled and anticoagulated Continue home medications (7) 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: Code(s): I25.719 - Atherosclerosis of autologous vein coronary artery bypass graft(s) with unspecified angina pectoris Status: Chronic Assessment and Plan: Continue home meds Continue to monitor Chest pain-free (8) Pulmonary hypertension: Code(s): I27.20 - Pulmonary hypertension, unspecified Status: Acute Assessment and Plan: Echo noted hypertension of 59 Pulmonary consulted Continue treatment as above Time Spent With Patient Time: 53 minutes Time with patient: Greater than 35 minutes Subjective Date/time seen: 11/21/22 13:22 Interval history: 11/21/22 1000 patient was lying in bed her was sitting next to her. Patient stated that she just can not breathe and she does not really want a walker she can not breathe and walk the same time. Her stated that she does have a lot of breathing issues at baseline. He stated that they do not sleep together however he can hear her wheezing, rho
[2022-11-21] MEDS: FUROSEMIDE INJ 40 MG/4 ML VIAL IV PUSH (11:52)
--- NOTE | 2022-11-21 14:18 | PM.CNPUL ---
Assessment and Plan Assessment and plan (1) Hypoxia: Code(s): R09.02 - Hypoxemia Status: Acute Assessment and Plan: She requires O2 to maintain saturation > 90%> nhanas that she has had low saturation last month in [place] with pneumonia admission for 5 days, did not leave hosital on O2. Has had low O2 saturation at other times, has not qualified for outpatient O2. 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 She has not had PFTs, says that she was diagnosed by her chest surgeon, now on Stiolto with some relief. Never smoker. She has no history of asthma. She denies wheezing. says that she wheezes, nikki at night. out patient PFTs 4-6 weeks after improvement and discharge (3) Pulmonary hypertension: Code(s): I27.20 - Pulmonary hypertension, unspecified Status: Acute Assessment and Plan: New diagnosis. This is likely secondary pulmonary hypertension due to lung disease, untreated MARC, possibly due to autoimmune disease. She had a negative PATRICIA panel in 2021. She is treated for rheumatoid arthritis by Dr Filippo Carpenter, also has PMR. Pulmonary hypertension can be associated with collagen vascular conditions. Plan Decrease IV solumedrol dose to 40 mg Q 8 hr check alpha-1 anti trypsin phenotype Wean O2 Out patient PFT and sleep testing History of Present Illness History of Present Illness Consult date: 11/21/22 Requesting physician: Terence Ortiz APN-C Chief complaint: Pneumonia,hypoxic respiratory failure Narrative: patient was seen November 21, 2022 at 14:25 with her at the bedside; he helps provide the history NEW: Laura Clifford is a 72-year-old woman never-smoker who has a history of COPD, diagnosed 2013 when she had CABG at [facility]. She is on Stiolto and albuterol. She was in [place] early Oct when she developed cough with green sputum, shortness of breath, decrease in O2 levels. She went to Urgent care then ER, was admitted to hospital for total 5 nights in [place] in a step down unit. Was [place] back to her resort without antibiotics or O2. She was off prednisone at discharge. After returning to [place], she was able to get almost back to her baseline. She has had increased shortness of breath for 3 weeks, increased weakness, wheezing according to her . She says that she has not noticed wheezing. She has green sputum, slight increase in leg swelling. She has not had nasal congestion, sore throat, or any GI symptoms. No N/V/D. She was at Dr. Rojas's office yesterday, was c/o increased shortness of breath, had low saturation required O2 at 6 L/min in the office, and had rapid atrial fibrillation; was brought to ER by ambulance. Her 11/20 CXR shows increased pulmonary vasculature without an infiltrate. CTA shows no PE, and she has scattered patchy groundglass infiltrates throughout both lungs which may be due to small airways disease, atelectasis and/or pneumonia. She has been started on IV solumedrol 60 mg IV Q 6 hours, IV antibiotics with vancomycin, Cefepime. She had COVID in 2021. Her says that he wants her to have O2 to use when she is at home. He thinks this would help her, especially at night when she struggles to catch her breath. She tells me she was tested for sleep apnea, never used a CPAP, never w
[2022-11-21] MEDS: PRAMIPEXOLE 0.5 MG TABLET BY MOUTH (20:48)
[2022-11-21] MEDS: methylPREDNISolone SOD SUCC 40 MG VIAL IV PUSH (20:49)
[2022-11-22] VITALS (17 sets, daily range): BP systolic 121–167; BP diastolic 65–90; PULSE 71–103; RESP 14–20; TEMP 36.1–36.9; O2SAT 91–95
[2022-11-22] MEDS: IPRATROPIUM BR 0.02% INH SOLN 0.5 MG/2.5 ML VIAL INHALATION ×4 (02:27→21:07)
[2022-11-22] MEDS: ALBUTEROL SULFATE NEB 2.5 MG/3 ML INH INHALATION ×4 (02:27→21:07)
[2022-11-22] MEDS: CEFEPIME 2 GM/NS 50 ML 2 GM/50 ML BAG IVPB ×3 (06:05→20:39)
[2022-11-22] MEDS: methylPREDNISolone SOD SUCC 40 MG VIAL IV PUSH ×2 (06:06→13:46)
[2022-11-22] MEDS: SOTALOL HCL 80 MG TABLET BY MOUTH ×2 (08:47→20:37)
[2022-11-22] MEDS: PRAVASTATIN SODIUM 10 MG TABLET BY MOUTH (08:48)
[2022-11-22] MEDS: METOPROLOL TARTRATE 25 MG TABLET PO ×2 (08:48→16:21)
[2022-11-22] MEDS: PANTOPRAZOLE 40 MG TABLET PO (08:48)
[2022-11-22 09:28] LABS: Basophils Percent Auto 0.1 % (0.2-1.2); Eosinophils Percent Auto 0.1 % (0-4.4); Hematocrit 35.3 % (37.0-47.0); Hemoglobin 10.4 g/dL (12.0-15.0); Immature Granulocyte Absolute 0.04 K/mm3 (0.00-0.031); Immature Granulocyte Percent A 0.4 % (0-0.5); Immature Platelet Fraction Pct 8.5 % (0.9-11.2); Lymphocytes Absolute Auto 0.68 K/mm3 (0.9-3.2); Lymphocytes Percent Auto 6.1 % (18.3-44.2); Mean Corpuscular HGB Conc 29.5 g/dl (32-36); Mean Corpuscular Hemoglobin 22.5 pg (26-34); Mean Corpuscular Volume 76.4 fl (80-100); Mean Platelet Volume 11.2 fl (7.4-10.4); Monocytes Absolute Auto 0.6 K/mm3 (0.1-0.6); Monocytes Percent Auto 5.8 % (2.6-8.5); Neutrophils Absolute Auto 9.7 K/mm3 (1.3-6.7); Neutrophils Percent Auto 87.5 % (45.5-73.1); Platelet Count Result 329 k/mm3 (150-375); Red Blood Count 4.62 M/mm3 (4.2-5.4); Red Cell Distribution Width 21.3 % (11.5-14.5); White Blood Count 11.1 K/mm3 (4.5-10.0)
[2022-11-22 09:47] LABS: Alanine Aminotransferase 17 U/L (6-35); Albumin Level 3.8 g/dL (3.5-5.1); Alkaline Phosphatase 66 U/L (38-126); Anion Gap 8 mmol/L (8-16); Aspartate Amino Transferase 20 U/L (14-36); Bilirubin,Total 0.5 mg/dL (0.2-1.3); Blood Urea Nitrogen 24 mg/dL (7-17); Calcium 8.6 mg/dL (8.4-10.2); Carbon Dioxide 28 mmol/L (22-30); Chloride 97 mmol/L (98-107); Estimated CRCL calculation 83 ml/min; Estimated Glomerular Filt Rate > 60; Glucose 300 mg/dL (65-110); Magnesium 1.8 mg/dL (1.6-2.3); Potassium 3.8 mmol/L (3.4-5.0); Sodium 133 mmol/L (137-145)
--- NOTE | 2022-11-22 11:15 | PM.IMPN ---
Progress Note: A&P Assessment and Plan (1) Pneumonia: Code(s): J18.9 - Pneumonia, unspecified organism Status: Acute Assessment and Plan: presented with complaints of shortness of breath, dyspnea was treated in [place] for pneumonia and for a about 3 weeks ago and appears to have failed outpatient antibiotics or treatment CT shows scattered patchy ground-glass infiltrates throughout both lungs atelectasis versus pneumonia continue vancomycin cefepime for now neb treatments ordered sputum culture ordered blood culture NGTD white count is stable trend labs supplemental oxygen wean to maintain saturations greater than 90% (2) Respiratory failure: Code(s): J96.90 - Respiratory failure, unspecified, unspecified whether with hypoxia or hypercapnia Status: Acute Assessment and Plan: saturations noted to be 85% on room air supplemental oxygen provided ABG shows respiratory alkalosis patient does exhibit tripoding, loss of voice, unable to hold a conversation, and labored breathing Supplemental oxygen provided, wean to maintain saturations >90% Pulmonology consulted thank you for helping Could be secondary to COPD and PNA Continue to trend respiratory status (3) Congestive heart failure: Code(s): I50.9 - Heart failure, unspecified Status: Acute Assessment and Plan: Echo does show an EF 60-65% grade 1 diastolic heart failure, pulmonary hypertension noted Lasix 40mg bid x 3 doses Trend urine output Trend daily weight Seems to be an acute chronic diastolic heart failure in acute exacerbation BNP 367 (4) 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 Emphysema type: unspecified Qualified Code(s): J43.9 - Emphysema, unspecified Code(s): J44.9 - Chronic obstructive pulmonary disease, unspecified Status: Acute Assessment and Plan: Breathing treatments ordered CTA did not indicate any emphysema Pulmonology consulted at this time Continue to trend respiratory status Supplemental oxygen provided wean to maintain saturations >90% Sputum culture ordered Continue IV antibiotics Continue steroids for now, titrate down when able (5) Acute hypoxemic respiratory failure: Code(s): J96.01 - Acute respiratory failure with hypoxia Status: Acute Assessment and Plan: On supplemental oxygen see above (6) Paroxysmal atrial fibrillation: Code(s): I48.0 - Paroxysmal atrial fibrillation Status: Chronic Assessment and Plan: Rate controlled and anticoagulated Continue home medications (7) 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 She is able to walk to the bathroom with out becoming short of breath. She did state that she is still having a significant nagging cough. She also stated that he nose is dry from the oxygen use. She denies any chest pain, nausea, vomiting, diarrhea,constipation. she also endorses weakness. 11/21/22 1000 patient was lying in bed her was sitting next to her. Patient stated that she just can not breathe and she does no
--- NOTE | 2022-11-22 11:15 | P.PNIM_ITS ---
Progress Note: A&P Assessment and Plan (1) Pneumonia: Code(s): J18.9 - Pneumonia, unspecified organism Status: Acute Assessment and Plan: * presented with complaints of shortness of breath, dyspnea * was treated in [place] for pneumonia and for a about 3 weeks ago and appears to have failed outpatient antibiotics or treatment * CT shows scattered patchy ground-glass infiltrates throughout both lungs atelectasis versus pneumonia * continue vancomycin cefepime for now * neb treatments ordered * sputum culture ordered * blood culture NGTD * white count is stable * trend labs * supplemental oxygen wean to maintain saturations greater than 90% (2) Respiratory failure: Code(s): J96.90 - Respiratory failure, unspecified, unspecified whether with hypoxia or hypercapnia Status: Acute Assessment and Plan: * saturations noted to be 85% on room air * supplemental oxygen provided * ABG shows respiratory alkalosis * patient does exhibit tripoding, loss of voice, unable to hold a conversation, and labored breathing * Supplemental oxygen provided, wean to maintain saturations >90% * Pulmonology consulted thank you for helping * Could be secondary to COPD and PNA * Continue to trend respiratory status (3) Congestive heart failure: Code(s): I50.9 - Heart failure, unspecified Status: Acute Assessment and Plan: * Echo does show an EF 60-65% grade 1 diastolic heart failure, pulmonary hypertension noted * Lasix 40mg bid x 3 doses * Trend urine output * Trend daily weight * Seems to be an acute chronic diastolic heart failure in acute exacerbation * BNP 367 (4) 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 Emphysema type: unspecified Qualified Code(s): J43.9 - Emphysema, unspecified Code(s): J44.9 - Chronic obstructive pulmonary disease, unspecified Status: Acute Assessment and Plan: * Breathing treatments ordered * CTA did not indicate any emphysema * Pulmonology consulted at this time * Continue to trend respiratory status * Supplemental oxygen provided wean to maintain saturations >90% * Sputum culture ordered * Continue IV antibiotics * Continue steroids for now, titrate down when able (5) Acute hypoxemic respiratory failure: Code(s): J96.01 - Acute respiratory failure with hypoxia Status: Acute Assessment and Plan: * On supplemental oxygen * see above (6) Paroxysmal atrial fibrillation: Code(s): I48.0 - Paroxysmal atrial fibrillation Status: Chronic Assessment and Plan: * Rate controlled and anticoagulated * Continue home medications (7) 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
[2022-11-22 11:42] LABS: Platelet Estimate Adequate (Adequate)
[2022-11-22 11:43] LABS: Poikilocytosis 1+ (NORMAL)
[2022-11-22 11:46] LABS: Schistocytes 1+ (NORMAL)
[2022-11-22 11:47] LABS: Anisocytosis 1+ (NORMAL); Ovalocytes 1+ (NORMAL)
[2022-11-22 12:12] LABS: Vancomycin Trough 17.6 ug/mL (10.0-20.0)
[2022-11-22] MEDS: FUROSEMIDE INJ 40 MG/4 ML VIAL IV PUSH (14:28)
[2022-11-22] MEDS: PRAMIPEXOLE 0.5 MG TABLET BY MOUTH (20:37)
[2022-11-22] MEDS: ACETAMINOPHEN 325 MG TABLET 650 MG PO (20:38)
[2022-11-22] MEDS: LEFLUNOMIDE 20 MG TABLET PO (20:39)
[2022-11-22] MEDS: SODIUM CHLORIDE NASAL GEL 14.1 GM 1 APPLIC NASAL (20:39)
[2022-11-23] VITALS (16 sets, daily range): BP systolic 122–156; BP diastolic 50–88; PULSE 85–105; RESP 14–18; TEMP 36.2–36.6; O2SAT 91–96
[2022-11-23] MEDS: ALBUTEROL SULFATE NEB 2.5 MG/3 ML INH INHALATION ×4 (01:28→20:44)
[2022-11-23] MEDS: IPRATROPIUM BR 0.02% INH SOLN 0.5 MG/2.5 ML VIAL INHALATION ×4 (01:28→20:42)
[2022-11-23] MEDS: CEFEPIME 2 GM/NS 50 ML 2 GM/50 ML BAG IVPB ×3 (05:24→21:25)
[2022-11-23] MEDS: SODIUM CHLORIDE NASAL GEL 14.1 GM 1 APPLIC NASAL (05:28)
--- NOTE | 2022-11-23 06:28 | PC.NURSE ---
Pt took off oxygen, room air sat 90-91% Pt HOB elevated Pt states not SOB, does not want to put 02 back on. IV site AC- frequent alarming with infusions due to bending of arm. Incontinent of urine, depends on- pt changes per self. TEDS to be measured for this am and applied. BERNARDA +2 pitting. Order remains for sputum - nonproductive infrequent cough.
[2022-11-23 06:38] LABS: Basophils Percent Auto 0.2 % (0.2-1.2); Hematocrit 35.2 % (37.0-47.0); Hemoglobin 10.6 g/dL (12.0-15.0); Immature Granulocyte Absolute 0.08 K/mm3 (0.00-0.031); Immature Granulocyte Percent A 0.6 % (0-0.5); Immature Platelet Fraction Pct 9.2 % (0.9-11.2); Lymphocytes Absolute Auto 0.93 K/mm3 (0.9-3.2); Mean Corpuscular HGB Conc 30.1 g/dl (32-36); Mean Corpuscular Hemoglobin 23.1 pg (26-34); Mean Corpuscular Volume 76.9 fl (80-100); Mean Platelet Volume 11.1 fl (7.4-10.4); Monocytes Absolute Auto 1.5 K/mm3 (0.1-0.6); Monocytes Percent Auto 11.2 % (2.6-8.5); Neutrophils Absolute Auto 10.7 K/mm3 (1.3-6.7); Platelet Count Result 370 k/mm3 (150-375); Red Blood Count 4.58 M/mm3 (4.2-5.4); Red Cell Distribution Width 20.9 % (11.5-14.5); White Blood Count 13.2 K/mm3 (4.5-10.0)
[2022-11-23 07:22] LABS: Alanine Aminotransferase 17 U/L (6-35); Albumin Level 3.7 g/dL (3.5-5.1); Alkaline Phosphatase 70 U/L (38-126); Anion Gap 4 mmol/L (8-16); Aspartate Amino Transferase 19 U/L (14-36); Bilirubin,Total 0.5 mg/dL (0.2-1.3); Blood Urea Nitrogen 29 mg/dL (7-17); Calcium 8.4 mg/dL (8.4-10.2); Carbon Dioxide 34 mmol/L (22-30); Chloride 92 mmol/L (98-107); Estimated CRCL calculation 61 ml/min; Estimated Glomerular Filt Rate > 60; Glucose 341 mg/dL (65-110); Magnesium 1.8 mg/dL (1.6-2.3); Potassium 3.5 mmol/L (3.4-5.0); Sodium 130 mmol/L (137-145)
[2022-11-23] MEDS: METOPROLOL TARTRATE 25 MG TABLET PO ×2 (09:00→16:40)
[2022-11-23] MEDS: PANTOPRAZOLE 40 MG TABLET PO (09:00)
[2022-11-23] MEDS: predniSONE 20 MG TABLET 40 MG PO (09:00)
[2022-11-23] MEDS: FUROSEMIDE INJ 40 MG/4 ML VIAL IV PUSH (09:00)
[2022-11-23] MEDS: PRAVASTATIN SODIUM 10 MG TABLET BY MOUTH (09:01)
[2022-11-23] MEDS: SOTALOL HCL 80 MG TABLET BY MOUTH ×2 (09:01→21:23)
[2022-11-23] MEDS: MAGNESIUM SULF 2 GM/WATER 50ML 2 GM/50 ML BAG IVPB (09:01)
[2022-11-23] MEDS: ONDANSETRON INJ 4 MG/2 ML VIAL IV PUSH (09:50)
--- NOTE | 2022-11-23 10:45 | P.PNIM_ITS ---
Progress Note: A&P Assessment and Plan (1) Pneumonia: Code(s): J18.9 - Pneumonia, unspecified organism Status: Acute Assessment and Plan: * presented with complaints of shortness of breath, dyspnea * was treated in [place] for pneumonia and for a about 3 weeks ago and appears to have failed outpatient antibiotics or treatment * CT shows scattered patchy ground-glass infiltrates throughout both lungs atelectasis versus pneumonia * continue vancomycin cefepime for now * neb treatments ordered * sputum culture ordered * blood culture NGTD * white count is stable * trend labs * supplemental oxygen wean to maintain saturations greater than 90%, currently on room air * Saturations remained 92-96 (2) Respiratory failure: Code(s): J96.90 - Respiratory failure, unspecified, unspecified whether with hypoxia or hypercapnia Status: Acute Assessment and Plan: * saturations noted to be 85% on room air * supplemental oxygen provided * ABG shows respiratory alkalosis * patient does exhibit tripoding, loss of voice, unable to hold a conversation, and labored breathing * Supplemental oxygen provided, wean to maintain saturations >90% * Pulmonology consulted thank you for helping * Could be secondary to COPD and PNA * Continue to trend respiratory status (3) Congestive heart failure: Code(s): I50.9 - Heart failure, unspecified Status: Acute Assessment and Plan: * Echo does show an EF 60-65% grade 1 diastolic heart failure, pulmonary hypertension noted * Lasix 40mg bid x 3 doses * Trend urine output * Trend daily weight * Seems to be an acute chronic diastolic heart failure in acute exacerbation * BNP 367 * [place] (4) 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 Emphysema type: unspecified Qualified Code(s): J43.9 - Emphysema, unspecified Code(s): J44.9 - Chronic obstructive pulmonary disease, unspecified Status: Acute Assessment and Plan: * Breathing treatments ordered * CTA did not indicate any emphysema * Pulmonology consulted at this time * Continue to trend respiratory status * Supplemental oxygen provided wean to room air * Sputum culture ordered * Continue IV antibiotics * Continue steroids for now, titrate down when able (5) Acute hypoxemic respiratory failure: Code(s): J96.01 - Acute respiratory failure with hypoxia Status: Acute Assessment and Plan: * On supplemental oxygen * see above (6) Paroxysmal atrial fibrillation: Code(s): I48.0 - Paroxysmal atrial fibrillation Status: Chronic Assessment and Plan: * Rate controlled and anticoagulated * Continue home medications (7) 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
--- NOTE | 2022-11-23 10:45 | PM.IMPN ---
Progress Note: A&P Assessment and Plan (1) Pneumonia: Code(s): J18.9 - Pneumonia, unspecified organism Status: Acute Assessment and Plan: presented with complaints of shortness of breath, dyspnea was treated in [place] for pneumonia and for a about 3 weeks ago and appears to have failed outpatient antibiotics or treatment CT shows scattered patchy ground-glass infiltrates throughout both lungs atelectasis versus pneumonia continue vancomycin cefepime for now neb treatments ordered sputum culture ordered blood culture NGTD white count is stable trend labs supplemental oxygen wean to maintain saturations greater than 90%, currently on room air Saturations remained 92-96 (2) Respiratory failure: Code(s): J96.90 - Respiratory failure, unspecified, unspecified whether with hypoxia or hypercapnia Status: Acute Assessment and Plan: saturations noted to be 85% on room air supplemental oxygen provided ABG shows respiratory alkalosis patient does exhibit tripoding, loss of voice, unable to hold a conversation, and labored breathing Supplemental oxygen provided, wean to maintain saturations >90% Pulmonology consulted thank you for helping Could be secondary to COPD and PNA Continue to trend respiratory status (3) Congestive heart failure: Code(s): I50.9 - Heart failure, unspecified Status: Acute Assessment and Plan: Echo does show an EF 60-65% grade 1 diastolic heart failure, pulmonary hypertension noted Lasix 40mg bid x 3 doses Trend urine output Trend daily weight Seems to be an acute chronic diastolic heart failure in acute exacerbation BNP 367 [place] (4) 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 Emphysema type: unspecified Qualified Code(s): J43.9 - Emphysema, unspecified Code(s): J44.9 - Chronic obstructive pulmonary disease, unspecified Status: Acute Assessment and Plan: Breathing treatments ordered CTA did not indicate any emphysema Pulmonology consulted at this time Continue to trend respiratory status Supplemental oxygen provided wean to room air Sputum culture ordered Continue IV antibiotics Continue steroids for now, titrate down when able (5) Acute hypoxemic respiratory failure: Code(s): J96.01 - Acute respiratory failure with hypoxia Status: Acute Assessment and Plan: On supplemental oxygen see above (6) Paroxysmal atrial fibrillation: Code(s): I48.0 - Paroxysmal atrial fibrillation Status: Chronic Assessment and Plan: Rate controlled and anticoagulated Continue home medications (7) 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: Code(s): I25.719 - Atherosclerosis of autologous vein coronary artery bypass graft(s) with unspecified angina pectoris Status: Chronic Assessment and Plan: Continue home meds Continue to monitor Chest pain-free (8) Pulmonary hypertension: Code(s): I27.20 - Pulmonary hypertension, unspecified Status: Acute Assessment and Plan: Echo noted hypertension of 59 Pulmonary consulted Continue treatment as above Plan continue lasix PRN Tamsulosin added for better bladder emptying, PRV 167 Time Spent With Patient Time: 48 minutes 15 minute discussion with family and patient about current plan Time with patient: Greater than 35 minutes Subjective Date/time seen: 11/23/221044 Interval history: 11/23/221044 patient currently on room air. She stated that she does not feel real good today. She stated that she has nausea along with upset stomach. She was also quite irritated about the Lasix and stated that the Lasix is to be given at a certain time
[2022-11-23] MEDS: METOCLOPRAMIDE HCL INJ 10 MG/2 ML VIAL IV PUSH (11:58)
[2022-11-23] MEDS: TAMSULOSIN HCL 0.4 MG CAPSULE PO (16:39)
--- NOTE | 2022-11-23 19:01 | PM.PNPUL ---
Progress Note: A&P Assessment and Plan (1) Hypoxia: Code(s): R09.02 - Hypoxemia Status: Acute Assessment and Plan: She requires O2 to maintain saturation > 90%> syas that she has had low saturation last month in [place] with pneumonia admission for 5 days, did not leave hosital on O2. Has had low O2 saturation at other times, has not qualified for outpatient O2. 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 She has not had PFTs, says that she was diagnosed by her chest surgeon, now on Stiolto with some relief. Never smoker. She has no history of asthma. She denies wheezing. says that she wheezes, nikki at night. out patient PFTs 4-6 weeks after improvement and discharge (3) Pulmonary hypertension: Code(s): I27.20 - Pulmonary hypertension, unspecified Status: Acute Assessment and Plan: New diagnosis. This is likely secondary pulmonary hypertension due to lung disease, untreated MARC, possibly due to autoimmune disease. She had a negative PATRICIA panel in 2021. She is treated for rheumatoid arthritis by Dr Filippo Carpenter, also has PMR. Pulmonary hypertension can be associated with collagen vascular conditions. Plan Decrease IV solumedrol dose to 40 mg Q 8 hr check alpha-1 anti trypsin phenotype Wean O2 Out patient PFT and sleep testing Subjective Date/time seen: 11/23/22 19:01 Interval history: hospital follow up: Laura Clifford is a 72-year-old woman never-smoker who has a history of COPD, diagnosed 2013 when she had CABG at [facility]. She is on Stiolto and albuterol. She was in [place] early Oct when she developed cough with green sputum, shortness of breath, decrease in O2 levels.? She went to Urgent care then ER, was admitted to hospital for total 5 nights in [place] in a step down unit.? [place] her [place] without antibiotics or O2. She was off prednisone at discharge.? After returning to [place], she was able to get almost back to her baseline. ? She has had increased shortness of breath for 3 weeks, increased weakness, wheezing according to her . She says that she has not noticed wheezing.? She has green sputum, slight increase in leg swelling. She has not had nasal congestion, sore throat, or any GI symptoms. No N/V/D. She was at Dr. Rojas's office yesterday, was c/o increased shortness of breath, had low saturation required O2 at 6 L/min in the office, and had rapid atrial fibrillation; was brought to ER by ambulance. ? Her 11/20 CXR shows increased pulmonary vasculature? without an infiltrate.? CTA shows no PE, and she has?scattered patchy groundglass infiltrates throughout both lungs which may be due to small airways disease, atelectasis and/or pneumonia.?She has been started on IV solumedrol 60 mg IV Q 6 hours, IV antibiotics with vancomycin, Cefepime. She had COVID in 2021.? Her says that he wants her to have O2 to use when she is at home. He thinks this would help her, especially at night when she struggles to catch her breath. She tells me she was tested for sleep apnea, never used a CPAP, never wants to.? I explained to him that she would be tested prior to discharge, if she requires oxygen this will be prescribed however oxygen does not replace treatment for sleep apnea.? Oxygen cannot open the airway.? I
[2022-11-23] MEDS: ACETAMINOPHEN 325 MG TABLET 650 MG PO (21:21)
[2022-11-23] MEDS: LEFLUNOMIDE 20 MG TABLET PO (21:24)
[2022-11-23] MEDS: PRAMIPEXOLE 0.5 MG TABLET BY MOUTH (21:26)
[2022-11-24] VITALS (16 sets, daily range): BP systolic 150–158; BP diastolic 69–82; PULSE 74–101; RESP 16–20; TEMP 36.3–36.4; O2SAT 86–94
[2022-11-24 00:58] LABS: Vancomycin Trough 22.4 ug/mL (10.0-20.0)
[2022-11-24] MEDS: CEFEPIME 2 GM/NS 50 ML 2 GM/50 ML BAG IVPB (05:15)
[2022-11-24 06:32] LABS: Basophils Percent Auto 0.2 % (0.2-1.2); Eosinophils Percent Auto 0.1 % (0-4.4); Hematocrit 34.5 % (37.0-47.0); Hemoglobin 10.6 g/dL (12.0-15.0); Immature Granulocyte Absolute 0.05 K/mm3 (0.00-0.031); Immature Granulocyte Percent A 0.5 % (0-0.5); Immature Platelet Fraction Pct 9.9 % (0.9-11.2); Lymphocytes Absolute Auto 1.42 K/mm3 (0.9-3.2); Lymphocytes Percent Auto 14.4 % (18.3-44.2); Mean Corpuscular HGB Conc 30.7 g/dl (32-36); Mean Corpuscular Hemoglobin 22.8 pg (26-34); Mean Corpuscular Volume 74.2 fl (80-100); Monocytes Percent Auto 14.8 % (2.6-8.5); Neutrophils Absolute Auto 6.9 K/mm3 (1.3-6.7); Red Blood Count 4.65 M/mm3 (4.2-5.4); Red Cell Distribution Width 20.3 % (11.5-14.5); White Blood Count 9.9 K/mm3 (4.5-10.0)
[2022-11-24 06:33] LABS: Monocytes Absolute Auto 1.5 K/mm3 (0.1-0.6)
[2022-11-24 06:45] LABS: Potassium 3.2 mmol/L (3.4-5.0)
[2022-11-24 06:48] LABS: Alanine Aminotransferase 18 U/L (6-35); Albumin Level 3.3 g/dL (3.5-5.1); Alkaline Phosphatase 65 U/L (38-126); Anion Gap 5 mmol/L (8-16); Aspartate Amino Transferase 19 U/L (14-36); Bilirubin,Total 0.5 mg/dL (0.2-1.3); Blood Urea Nitrogen 26 mg/dL (7-17); Calcium 8.3 mg/dL (8.4-10.2); Carbon Dioxide 35 mmol/L (22-30); Chloride 91 mmol/L (98-107); Estimated CRCL calculation 69 ml/min; Estimated Glomerular Filt Rate > 60; Glucose 252 mg/dL (65-110); Magnesium 2.2 mg/dL (1.6-2.3); Sodium 131 mmol/L (137-145)
--- NOTE | 2022-11-24 06:53 | PCDIET ---
Pt independent in room Wears oxygen when wants to.... No productive sputum. this shift. IV pump alarms when sleeping- bends arm. Vanco trough was 22.4, vanco dose changed and given vanco IVPB at later time- 0600. Next trough due 11/25/22 1700.
[2022-11-24 07:50] LABS: Platelet Clumps Present
[2022-11-24 07:51] LABS: Anisocytosis 2+ (NORMAL); Hypochromasia 1+ (NORMAL); Microcytosis 1+ (NORMAL); Schistocytes None Seen (NORMAL)
[2022-11-24] MEDS: ALBUTEROL SULFATE NEB 2.5 MG/3 ML INH INHALATION (08:52)
[2022-11-24] MEDS: IPRATROPIUM BR 0.02% INH SOLN 0.5 MG/2.5 ML VIAL INHALATION (08:52)
[2022-11-24 09:29] LABS: INR 1.8; Prothrombin Time 20.4 Seconds (11.1-14.7)
--- NOTE | 2022-11-24 09:30 | P.DS_ITS ---
DS: Admitting Diagnosis Discharge Date 11/24/22929 Admitting Diagnosis Acute respiratory failure, CHF exacerbation, Pneumonia DS: Discharge Diagnosis Discharge Diagnosis (1) Pneumonia: Code(s): J18.9 - Pneumonia, unspecified organism Status: Acute Assessment and Plan: * presented with complaints of shortness of breath, dyspnea * was treated in [place] for pneumonia and for a about 3 weeks ago and appears to have failed outpatient antibiotics or treatment * CT shows scattered patchy ground-glass infiltrates throughout both lungs atelectasis versus pneumonia * continue vancomycin cefepime for now, change to Augmentin * neb treatments ordered * sputum culture ordered * blood culture NGTD * white count is stable * trend labs * supplemental oxygen wean to maintain saturations greater than 90%, currently on room air * Saturations remained 92-96 (2) Respiratory failure: Code(s): J96.90 - Respiratory failure, unspecified, unspecified whether with hypoxia or hypercapnia Status: Acute Assessment and Plan: * saturations noted to be 85% on room air * supplemental oxygen provided * ABG shows respiratory alkalosis * patient does exhibit tripoding, loss of voice, unable to hold a conversation, and labored breathing * Supplemental oxygen provided, wean to maintain saturations >90% * Pulmonology consulted thank you for helping * Could be secondary to COPD and PNA * Continue to trend respiratory status (3) Congestive heart failure: Code(s): I50.9 - Heart failure, unspecified Status: Acute Assessment and Plan: * Echo does show an EF 60-65% grade 1 diastolic heart failure, pulmonary hypertension noted * Lasix 40mg bid x 3 doses, convert to PO lasix * Trend urine output * Trend daily weight * Seems to be an acute chronic diastolic heart failure in acute exacerbation * BNP 367 * [place] orellana (4) 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 Emphysema type: unspecified Qualified Code(s): J43.9 - Emphysema, unspecified Code(s): J44.9 - Chronic obstructive pulmonary disease, unspecified Status: Acute Assessment and Plan: * Breathing treatments ordered * CTA did not indicate any emphysema * Pulmonology consulted at this time * Continue to trend respiratory status * Supplemental oxygen provided wean to room air * Sputum culture ordered * Continue IV antibiotics * Continue steroids for now, titrate down when able (5) Acute hypoxemic respiratory failure: Code(s): J96.01 - Acute respiratory failure with hypoxia Status: Acute Assessment and Plan: * On supplemental oxygen * see above (6) Paroxysmal atrial fibrillation: Code(s): I48.0 - Paroxysmal atrial fibrillation Status: Chronic Assessment and Plan: * Rate controlled and anticoagulated * Continue home medications (7) 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
--- NOTE | 2022-11-24 09:30 | PM.DS ---
DS: Admitting Diagnosis Discharge Date 11/24/22929 Admitting Diagnosis Acute respiratory failure, CHF exacerbation, Pneumonia DS: Discharge Diagnosis Discharge Diagnosis (1) Pneumonia: Code(s): J18.9 - Pneumonia, unspecified organism Status: Acute Assessment and Plan: presented with complaints of shortness of breath, dyspnea was treated in [place] for pneumonia and for a about 3 weeks ago and appears to have failed outpatient antibiotics or treatment CT shows scattered patchy ground-glass infiltrates throughout both lungs atelectasis versus pneumonia continue vancomycin cefepime for now, change to Augmentin neb treatments ordered sputum culture ordered blood culture NGTD white count is stable trend labs supplemental oxygen wean to maintain saturations greater than 90%, currently on room air Saturations remained 92-96 (2) Respiratory failure: Code(s): J96.90 - Respiratory failure, unspecified, unspecified whether with hypoxia or hypercapnia Status: Acute Assessment and Plan: saturations noted to be 85% on room air supplemental oxygen provided ABG shows respiratory alkalosis patient does exhibit tripoding, loss of voice, unable to hold a conversation, and labored breathing Supplemental oxygen provided, wean to maintain saturations >90% Pulmonology consulted thank you for helping Could be secondary to COPD and PNA Continue to trend respiratory status (3) Congestive heart failure: Code(s): I50.9 - Heart failure, unspecified Status: Acute Assessment and Plan: Echo does show an EF 60-65% grade 1 diastolic heart failure, pulmonary hypertension noted Lasix 40mg bid x 3 doses, convert to PO lasix Trend urine output Trend daily weight Seems to be an acute chronic diastolic heart failure in acute exacerbation BNP 367 [place] hose (4) 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 Emphysema type: unspecified Qualified Code(s): J43.9 - Emphysema, unspecified Code(s): J44.9 - Chronic obstructive pulmonary disease, unspecified Status: Acute Assessment and Plan: Breathing treatments ordered CTA did not indicate any emphysema Pulmonology consulted at this time Continue to trend respiratory status Supplemental oxygen provided wean to room air Sputum culture ordered Continue IV antibiotics Continue steroids for now, titrate down when able (5) Acute hypoxemic respiratory failure: Code(s): J96.01 - Acute respiratory failure with hypoxia Status: Acute Assessment and Plan: On supplemental oxygen see above (6) Paroxysmal atrial fibrillation: Code(s): I48.0 - Paroxysmal atrial fibrillation Status: Chronic Assessment and Plan: Rate controlled and anticoagulated Continue home medications (7) 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: Code(s): I25.719 - Atherosclerosis of autologous vein coronary artery bypass graft(s) with unspecified angina pectoris Status: Chronic Assessment and Plan: Continue home meds Continue to monitor Chest pain-free (8) Pulmonary hypertension: Code(s): I27.20 - Pulmonary hypertension, unspecified Status: Acute Assessment and Plan: Echo noted hypertension of 59 Pulmonary consulted Continue treatment as above Plan continue lasix PRN Tamsulosin added for better bladder emptying, PRV 167 DS: Summary Hospital Course Hospital Course: patient is 72-year-old female with a past medical history of CHF, hyperlipidemia, CAD, TIA who presented to ED with complaints of increased shortness of breath CTA the chest was performed and showed no evidence of pulmonary embolism but did show sc
[2022-11-24] MEDS: SOTALOL HCL 80 MG TABLET BY MOUTH (09:36)
[2022-11-24] MEDS: POTASSIUM CHLORIDE 20 MEQ TABLET 40 MEQ PO (09:36)
[2022-11-24] MEDS: predniSONE 20 MG TABLET 40 MG PO (09:36)
[2022-11-24] MEDS: METOPROLOL TARTRATE 25 MG TABLET PO (09:37)
[2022-11-24] MEDS: AMOXICILLIN/CLAVULANATE K 875-125 MG TAB 1 TABLET PO (09:37)
[2022-11-24] MEDS: PANTOPRAZOLE 40 MG TABLET PO (09:37)
[2022-11-24] MEDS: PRAVASTATIN SODIUM 10 MG TABLET BY MOUTH (09:37)
--- NOTE | 2022-11-24 11:42 | PM.PNPUL ---
Progress Note: A&P Assessment and Plan (1) 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 Emphysema type: unspecified Qualified Code(s): J43.9 - Emphysema, unspecified Code(s): J44.9 - Chronic obstructive pulmonary disease, unspecified Status: Acute Assessment and Plan: She reports a history of COPD since 2013 at the time of her coronary bypass surgery. She has not had PFTs, says that she was diagnosed by her chest surgeon, now on Stiolto with some relief. Never smoker. She has no history of asthma. She denies wheezing. says that she wheezes, nikki at night. alpha 1 phenotype is pending From a pulmonary perspective patient is ready to be discharged on these Pulmonary medications: Prednisone 40 mg p.o. q.day X 2 days Augmentin 875-125 at 1 tablet p.o. b.i.d. x2 days stiolto Respimat 2.5-2.5 mcg at 2 puffs Q day. Rescue albuterol 2 puffs q.4 hours p.r.n. shortness of breath or wheezing oxygen at rest and with ambulation per formal home O2 assessment Follow-up in the Pulmonary Clinic on 12/11/22 at 1:30 p.m. with her previously scheduled clinic appointment. Will obtain out patient PFTs One she is clinically stable. Will obtain outpatient overnight oximetry. Call with questions. (2) Hypoxia: Code(s): R09.02 - Hypoxemia Status: Acute Assessment and Plan: She requires O2 to maintain saturation > 90%> syas that she has had low saturation last month in [place] with pneumonia admission for 5 days, did not leave [facility] on O2. Has had low O2 saturation at other times, has not qualified for outpatient O2. 11/24: Will perform home O2 assessment to assess her oxygen needs at rest and with ambulation. (3) Pulmonary hypertension: Code(s): I27.20 - Pulmonary hypertension, unspecified Status: Acute Assessment and Plan: New diagnosis. This is likely secondary pulmonary hypertension due to lung disease, untreated MARC, possibly due to autoimmune disease. She had a negative PATRICIA panel in 2021. She is treated for rheumatoid arthritis by Dr Filippo Carpenter, also has PMR. Pulmonary hypertension can be associated with collagen vascular conditions. The patient tells me she briefly took methotrexate in the past. patient has multiple CT scans previously that demonstrate patchy infiltrates and mosaic attenuation. CT of the abdomen on 07/09/2022, CT angiogram of the chest on 06/26/2019, CT angiogram on 12/21/2017 and minimal mosaic attenuation on 01/24/2010. Plan Subjective Date/time seen: 11/24/22 11:42 Interval history: hospital follow up: Laura Clifford is a 72-year-old woman never-smoker who has a history of COPD, diagnosed 2013 when she had CABG at [facility]. She is on Stiolto and albuterol. She was in [place] early Oct when she developed cough with green sputum, shortness of breath, decrease in O2 levels.? She went to Urgent care then ER, was admitted to hospital for total 5 nights in [place] in a step down unit.? [place] without antibiotics or O2. She was off prednisone at discharge.? After returning to [place], she was able to get almost back to her baseline. ? She has had increased shortness of breath for 3 weeks, increased weakness, wheezing according to her . She says that she has not noticed wheezing.? She has green sputum, slight increase in leg swelling. She has not had nasal congestion, sore throat, or any GI symptoms. No N/V/D. She was at Dr. Rojas's office yesterday, was c/o increased shortness of breath, had low saturation required O2 at 6 L/min in the office, and had rapid atrial fibrillation; was brought to ER by ambulance. ? Her 11/20
[2022-11-24] MEDS: TAMSULOSIN HCL 0.4 MG CAPSULE PO (13:08)
--- NOTE | 2022-11-24 16:00 | HOMEO2EVAL ---
Evaluation was performed at [facility] Home Oxygen Evaluation RC: Home Oxygen (O2) Evaluation Start: 11/24/22 11:20 Freq: ONCE Status: Active Protocol: RPE Activity Type Activity Date Activity User E-sign Co-sign Detail Recorded Client Recorded Date Recorded By Document 11/24/22 13:00 [email or web address] 11/24/22 15:55 PKH Document 11/24/22 13:05 [email or web address] 11/24/22 15:55 PKH Document 11/24/22 13:10 [email or web address] [email or web address] 11/24/22 15:55 PKH Document 11/24/22 13:15 [email or web address] [email or web address] 11/24/22 15:55 PKH Document 11/24/22 13:30 [email or web address] 11/24/22 15:55 PKH Document 11/24/22 13:35 [email or web address] [email or web address] 11/24/22 15:55 PKH Document 11/24/22 13:40 [email or web address] [email or web address] 11/24/22 15:55 PKH Document 11/24/22 13:55 [email or web address] [email or web address] 11/24/22 15:55 PKH Document 11/24/22 14:00 [email or web address] [email or web address] 11/24/22 15:55 PKH 11/24/22 11/24/22 11/24/22 13:00 13:05 13:10 Home O2 Evaluation [Oxygen] -Test Phase Resting Exercise Exercise -Oxygen Delivery Room Air Room Air Nasal Cannula -Oxygen Flow Rate (L/min) 1 -Fraction of Inspired Oxygen (%) [Pulse Oximetry] -Pulse Oximetry (90-100 %) 90 86 L 87 L [Pulse Rate] -Pulse Rate (60-100 beats/min) 90 85 101 H [Charges] -Treatment Charges O2 Evaluation - Inpatient 11/24/22 11/24/22 11/24/22 13:15 13:30 13:35 Home O2 Evaluation [Oxygen] -Test Phase Exercise Exercise Exercise -Oxygen Delivery Nasal Cannula Nasal Cannula Nasal Cannula -Oxygen Flow Rate (L/min) 2 2 3 -Fraction of Inspired Oxygen (%) [Pulse Oximetry] -Pulse Oximetry (90-100 %) 90 87 L 87 L [Pulse Rate] -Pulse Rate (60-100 beats/min) 99 101 H 97 [Charges] -Treatment Charges 11/24/22 11/24/22 11/24/22 13:40 13:55 14:00 Home O2 Evaluation [Oxygen] -Test Phase Exercise Exercise Resting -Oxygen Delivery Nasal Cannula Room Air -Oxygen Flow Rate (L/min) 4 -Fraction of Inspired Oxygen (%) 4 [Pulse Oximetry] -Pulse Oximetry (90-100 %) 91 91 90 [Pulse Rate] -Pulse Rate (60-100 beats/min) 98 98 95 [Charges] -Treatment Charges
--- NOTE | 2022-11-24 16:05 | PCRCNOTE ---
HOME O2 EVAL COMPLETE. PATIENT HOME REQUIREMENTS ROOM AIR WITH REST 4 LPM WITH ACTIVITY. RN NOTIFIED. O2 SET UP WITH [facility].[phone]
== END 2022-11-24 17:00 | disposition home or self-care (01) | DRG 193 ==
LOC: ANHED 19:35 → ANH3MEDSUR 21:37
PROVIDERS: Internal Medicine Critical Care Medicine; Admitting Provider Internal Medicine; Emergency Provider Emergency Medicine; PCP Family Medicine; Visit Provider Nurse Practitioner
DX: J18.9 Pneumonia, unspecified organism (principal); I50.33 Acute on chronic diastolic (congestive) heart failure; J96.01 Acute respiratory failure with hypoxia; I25.719 Atherosclerosis of autologous vein coronary artery bypass graft(s) with unspecified angina pectoris; I11.0 Hypertensive heart disease with heart failure; J43.9 Emphysema, unspecified; I48.0 Paroxysmal atrial fibrillation; I27.20 Pulmonary hypertension, unspecified; K21.9 Gastro-esophageal reflux disease without esophagitis; Z20.822 Contact with and (suspected) exposure to COVID-19; Z79.899 Other long term (current) drug therapy; Z79.01 Long term (current) use of anticoagulants; Z79.51 Long term (current) use of inhaled steroids; Z88.5 Allergy status to narcotic agent; Z88.1 Allergy status to other antibiotic agents
CPT/HCPCS: 36415; 36600; 71046; 71275; 74018; 80053; 80202; 82104; 82565; 82805; 83735; 83880; 84484; 85025; 85055; 85610; 85730; 87040; 87081; 87637; 93005; 93306; 94618; 94640; 96375; 99285; A9270; J0692; J1940; J2405; J2765; J2920; J2930; J3370; J3475; J7512; Q9967

== ENCOUNTER 2022-12-11 14:35 | Outpatient (CLI) | payer MEDICARE, SELFPAY ==
[2022-12-11 15:27] LABS: Anion Gap 3 mmol/L (8-16); Blood Urea Nitrogen 17 mg/dL (7-17); Calcium 8.9 mg/dL (8.4-10.2); Carbon Dioxide 33 mmol/L (22-30); Chloride 100 mmol/L (98-107); Estimated Glomerular Filt Rate > 60; Glucose 147 mg/dL (65-110); Magnesium 1.6 mg/dL (1.6-2.3); Sodium 136 mmol/L (137-145)
== END 2022-12-11 14:36 | disposition home or self-care (01) ==
PROVIDERS: PCP Family Medicine; Visit Provider Internal Medicine Cardiovascular Disease
DX: I51.89 Other ill-defined heart diseases (principal)
CPT/HCPCS: 36415; 80048; 83735

== ENCOUNTER → 2022-12-17 10:03 | Outpatient (CLI) | payer MEDICARE, SELFPAY ==
--- NOTE | ~2022-12-17 | MM_ITS ---
EXAMINATION: MM screening peter BI w cady HISTORY: Screening mammogram, family history of breast cancer in her daughter. TECHNIQUE: Craniocaudal and mediolateral oblique 3-D tomosynthesis images were obtained and synthetic 2-D images were generated. CAD analysis was submitted and interpreted. COMPARISON: 08/05/2021, 06/27/2021, 01/13/2018 BREAST PARENCHYMAL COMPOSITION: There are scattered areas of fibroglandular density. FINDINGS: No suspicious mass, calcification, or architectural distortion are identified in either sonny ast to suggest malignancy. There has been no suspicious interval change. IMPRESSION: 1. No mammographic evidence of malignancy. 2. Recommend routine screening mammography in one year. BI-RADS Category 1: Negative Reviewed, dictated and finalized at location A.
== END ==
PROVIDERS: PCP Family Medicine; Visit Provider Family Medicine
DX: Z12.31 Encounter for screening mammogram for malignant neoplasm of breast (principal)
CPT/HCPCS: 77063; 77067

== ENCOUNTER 2023-01-02 08:55 | Outpatient (CLI) | payer MEDICARE, SELFPAY ==
[2023-01-02 09:26] LABS: Basophils Absolute Auto 0.1 K/mm3 (0.0-0.1); Basophils Percent Auto 0.8 % (0.2-1.2); Eosinophils Absolute Auto 0.1 K/mm3 (0-0.3); Eosinophils Percent Auto 1.1 % (0-4.4); Hemoglobin 10.4 g/dL (12.0-15.0); Immature Granulocyte Absolute 0.16 K/mm3 (0.00-0.031); Immature Granulocyte Percent A 1.4 % (0-0.5); Lymphocytes Absolute Auto 2.87 K/mm3 (0.9-3.2); Lymphocytes Percent Auto 24.3 % (18.3-44.2); Mean Corpuscular HGB Conc 28.9 g/dl (32-36); Mean Corpuscular Hemoglobin 22.5 pg (26-34); Mean Corpuscular Volume 77.9 fl (80-100); Mean Platelet Volume 10.5 fl (7.4-10.4); Monocytes Absolute Auto 1.5 K/mm3 (0.1-0.6); Monocytes Percent Auto 12.5 % (2.6-8.5); Neutrophils Absolute Auto 7.1 K/mm3 (1.3-6.7); Neutrophils Percent Auto 59.9 % (45.5-73.1); Platelet Count Result 315 k/mm3 (150-375); Red Blood Count 4.62 M/mm3 (4.2-5.4); Red Cell Distribution Width 20.5 % (11.5-14.5); White Blood Count 11.8 K/mm3 (4.5-10.0)
[2023-01-02 09:35] LABS: Alanine Aminotransferase 18 U/L (6-35); Albumin Level 3.5 g/dL (3.5-5.1); Alkaline Phosphatase 55 U/L (38-126); Anion Gap 2 mmol/L (8-16); Aspartate Amino Transferase 21 U/L (14-36); Bilirubin,Total 0.6 mg/dL (0.2-1.3); Blood Urea Nitrogen 19 mg/dL (7-17); Calcium 8.6 mg/dL (8.4-10.2); Carbon Dioxide 32 mmol/L (22-30); Chloride 99 mmol/L (98-107); Estimated Glomerular Filt Rate > 60; Glucose 157 mg/dL (65-110); Potassium 3.7 mmol/L (3.4-5.0); Sodium 133 mmol/L (137-145)
[2023-01-02 09:45] LABS: Anisocytosis 2+ (NORMAL); Hypochromasia 1+ (NORMAL); Microcytosis 1+ (NORMAL); Platelet Estimate Adequate (Adequate); Schistocytes None Seen (NORMAL)
[2023-01-02 09:46] LABS: Ovalocytes 1+ (NORMAL)
[2023-01-02 09:50] LABS: Erythrocyte Sedimentation Rate 14 mm/hr (0-20)
[2023-01-02 17:25] LABS: Rheumatoid Factor < 12.0 IU/ML (<12)
== END 2023-01-02 08:56 | disposition home or self-care (01) ==
PROVIDERS: PCP Family Medicine
DX: Z79.899 Other long term (current) drug therapy (principal)
CPT/HCPCS: 36415; 80053; 84439; 84443; 85025; 85652; 86430

== ENCOUNTER 2023-01-05 09:49 | Outpatient (CLI) | payer MEDICARE, SELFPAY ==
--- NOTE | ~2023-01-05 | XR_ITS ---
XR chest 2V 01/05/2023 10:13 Indication: Pneumonia Procedure: PA and lateral views of the chest Comparison: Comparison to multiple prior studies sequentially, with oldest reviewed study dated 10/2021. Findings: Status post median sternotomy for CABG. There is a prosthetic heart valve. There is right s houlder arthroplasty. No focal air space disease, pulmonary edema, pleural effusion or suspected pneu mothorax. There is calcified granuloma right upper thorax. No acute osseous abnormality. Mild thoraci c spondylosis. Impression: 1: No acute cardiopulmonary disease. Reviewed, dictated and finalized at location B. Impression: 1: No acute cardiopulmonary disease.
== END 2023-01-05 09:50 | disposition home or self-care (01) ==
PROVIDERS: PCP Family Medicine; Visit Provider Internal Medicine Pulmonary Disease
DX: J18.9 Pneumonia, unspecified organism (principal)
CPT/HCPCS: 71046

== ENCOUNTER 2023-01-07 09:55 | Outpatient (CLI) | payer MEDICARE, SELFPAY ==
--- NOTE | 2023-01-07 12:25 | WPDPFTINT ---
PFT Procedure Performed PFT Procedure Performed Spirometry with Pre/Post Bronchodilator Plethysmography (Lung Vol) Diffusing Cap (DLCO) Flow Vol Loop PFT Interpretation This is a pulmonary function test with pre and post-bronchodilator spirometry, plethysmography and diffusing capacity. The test was performed and results interpreted in accordance with the 2019 and 2005 ATS/ERS Task Force guidelines respectively using the Global Lung Function Initiative-2012 reference equations. Patient demonstrated good effort and cooperation. Reproducibility criteria were met. The quality of the pre bronchodilator spirometry maneuver was Grade A and post bronchodilator spirometry maneuver was Grade A. Findings: Spirometry: There is decreased maximal expiratory airflow at low lung volumes with concave expiratory flow tracing. The contour the inspiratory flow tracing is normal. The pre bronchodilator FVC was 1.09 L, 40% predicted. The pre bronchodilator FEV1 is 0.74 L, 35% predicted. The pre bronchodilator FEV1: FVC ratio is 68%. The post bronchodilator FVC is 1.12 L, representing a 2% increase. The post bronchodilator FEV1 is 0.74 L, representing is no change. The post bronchodilator FVC: FVC ratio 67%. Plethysmography: The total lung capacity is 3.22 L, 66% predicted. The functional residual capacity is 2.18 L, 78% predicted. The residual volume is 2.07 L, 97% predicted. Diffusing capacity: The diffusing capacity unadjusted for hemoglobin and carboxyhemoglobin is 9.3, 46% predicted. The diffusing capacity adjusted for alveolar volume is 4.47, 103% predicted. Impression: There is a combined obstructive and restrictive ventilatory abnormality. There are no guidelines to assign the severity of obstruction and restriction with a combined abnormality. In my opinion, given the moderately concave expiratory flow tracing and normal FEV1: FVC ratio and moderate restrictive abnormality I would state there is a mild obstructive abnormality and a moderate restrictive abnormality resulting in a severely decreased FEV1. There is no significant improvement after inhaling a single dose of albuterol. The diffusing capacity unadjusted for hemoglobin and carboxyhemoglobin is moderately decreased and normalizes when adjusted for alveolar volume. There are no prior studies for comparison
== END 2023-01-07 09:56 | disposition home or self-care (01) ==
PROVIDERS: PCP Family Medicine; Visit Provider Nurse Practitioner Family
DX: J44.9 Chronic obstructive pulmonary disease, unspecified (principal); R94.2 Abnormal results of pulmonary function studies
CPT/HCPCS: 94060; 94726; 94729

== ENCOUNTER 2023-03-24 14:47 | Emergency (ER) | payer MEDICARE, SELFPAY ==
[2023-03-24] VITALS (13 sets, daily range): BP systolic 110–156; BP diastolic 52–103; PULSE 103–110; RESP 19–34; TEMP 36.5; O2SAT 95–99
[2023-03-24 15:35] LABS: Basophils Absolute Auto 0.1 K/mm3 (0.0-0.1); Basophils Percent Auto 0.9 % (0.2-1.2); Eosinophils Absolute Auto 0.3 K/mm3 (0-0.3); Eosinophils Percent Auto 3.9 % (0-4.4); Hematocrit 35.7 % (37.0-47.0); Hemoglobin 10.2 g/dL (12.0-15.0); Immature Granulocyte Absolute 0.07 K/mm3 (0.00-0.031); Immature Granulocyte Percent A 0.8 % (0-0.5); Immature Platelet Fraction Pct 8.6 % (0.9-11.2); Lymphocytes Absolute Auto 1.79 K/mm3 (0.9-3.2); Mean Corpuscular HGB Conc 28.6 g/dl (32-36); Mean Corpuscular Hemoglobin 22.4 pg (26-34); Mean Corpuscular Volume 78.5 fl (80-100); Mean Platelet Volume 11.1 fl (7.4-10.4); Monocytes Absolute Auto 1.1 K/mm3 (0.1-0.6); Monocytes Percent Auto 12.3 % (2.6-8.5); Neutrophils Absolute Auto 5.2 K/mm3 (1.3-6.7); Neutrophils Percent Auto 61.1 % (45.5-73.1); Platelet Count Result 326 k/mm3 (150-375); Red Blood Count 4.55 M/mm3 (4.2-5.4); Red Cell Distribution Width 22.9 % (11.5-14.5); White Blood Count 8.5 K/mm3 (4.5-10.0)
[2023-03-24 15:42] LABS: Alanine Aminotransferase 16 U/L (6-35); Albumin Level 3.8 g/dL (3.5-5.1); Alkaline Phosphatase 81 U/L (38-126); Anion Gap 10 mmol/L (8-16); Aspartate Amino Transferase 23 U/L (14-36); Bilirubin,Total 0.5 mg/dL (0.2-1.3); Blood Urea Nitrogen 25 mg/dL (7-17); Calcium 8.6 mg/dL (8.4-10.2); Carbon Dioxide 30 mmol/L (22-30); Chloride 94 mmol/L (98-107); Estimated CRCL calculation 44 ml/min; Estimated Glomerular Filt Rate 49; Glucose 204 mg/dL (65-110); Potassium 3.2 mmol/L (3.4-5.0); Sodium 134 mmol/L (137-145)
[2023-03-24 15:50] LABS: INR 1.5; Partial Thromboplastin Time 35.4 SECONDS (22.3-36.8); Prothrombin Time 18.7 Seconds (11.1-14.7)
[2023-03-24 15:58] LABS: Anisocytosis 1+ (NORMAL); Hypochromasia 1+ (NORMAL); Platelet Estimate Adequate (Adequate); Schistocytes None Seen (NORMAL)
--- NOTE | 2023-03-24 16:21 | ED.GENADULT ---
HPI - General Adult General Chief complaint: GI Bleed Stated complaint: ?GI bleed Time Seen by Provider: 03/24/23 14:50 History of Present Illness HPI narrative: 73-year-old female with history of rheumatoid arthritis and prior GI bleed that takes Eliquis for history of A-fib presents to the emergency department complaining of black tarry stool. Patient states that a few months ago she did have an episode where she was thought to have a suspected GI bleed but patient was scoped by Dr. Masters and no source of bleeding was identified. Patient reports she has had persistent dark stool for the last few months. Patient did start taking iron pills approximately 1 week ago. Patient states she does have Related Data Home Medications Medication Instructions Recorded Confirmed leflunomide 20 mg tablet 20 mg PO DAILY 07/04/19 01/08/23 potassium chloride 10 mEq See Rx Instructions PO DAILY 03/12/23 03/12/23 tablet,extended release Allergies Allergy/AdvReac Type Severity Reaction Status Date / Time amoxicillin [From Augmentin] Allergy Severe Confusion Verified 03/24/23 14:59 clavulanic acid Allergy Severe Confusion Verified 03/24/23 14:59 [From Augmentin] ciprofloxacin Allergy Mild Unknown Verified 03/24/23 14:59 codeine Allergy Unknown Unknown Verified 03/24/23 14:59 levofloxacin Allergy Unknown Unknown Verified 03/24/23 14:59 lisinopril Allergy Unknown Unknown Verified 03/24/23 14:59 tramadol Allergy Mild Other Uncoded 03/12/23 14:18 Review of Systems Review of Systems: All systems reviewed & are unremarkable except as noted in HPI and below PMFSH Past Medical History Medical History (Updated 03/24/23 @ 17:51 by Stanislav Gomes MD) BMI over 35 Chronic anemia Chronic anticoagulation Chronic diarrhea Chronic obstructive pulmonary disease, unspecified Coronary artery disease COVID-19 Cubital tunnel syndrome on right Dyslipidemia Essential hypertension Exocrine pancreatic insufficiency Facial trauma Gastro-esophageal reflux disease without esophagitis Iron deficiency anemia Multifocal atrial tachycardia Paroxysmal atrial fibrillation Pneumathemia Pneumonia Polymyalgia rheumatica Small vessel disease, cerebrovascular TIA (transient ischemic attack) Surgical History Surgical History H/O endoscopy History of Achilles tendon repair History of bilateral carpal tunnel release History of bilateral knee replacement History of cardiac catheterization History of cataract extraction Left History of colonoscopy with polypectomy History of coronary artery bypass graft x 2 (12/2013) History of hand surgery trigger finger, thumb History of heart artery stent History of mitral valve repair History of shoulder surgery History of spinal surgery Lumbar micro discectomy infusion. Family History Family History Mother Cerebrovascular accident Family history of diabetes mellitus in first degree relative Family history of coronary artery disease Acute myocardial infarction Father Carcinoma of colon Family history of lung cancer Family history of malignant neoplasm of esophagus Sibling Liver disease Liver transplant recipient Other Family history of malignant neoplasm of brain Family history of malignant neoplasm of stomach Social History Social History Social History: Surrogate medical decision maker: Filippo Clifford, spouse. Code status: Full code. Smoking status: Never smoker Second hand tobacco smoke exposure: No Alcohol intake: current Alcohol use details: Rare alcohol use in moderation. Substance use: never Substance use type: does not use Lack of Transportation: No Lack of Food: Never True Current Housing: I Have Housing Concerned About Future Housing: No Difficulty Paying Gas/Electric Bills
[2023-03-24] MEDS: SODIUM CHLORIDE 0.9% IV 1,000 ML 250 ML IV CONT (16:36)
[2023-03-24] MEDS: POTASSIUM CHLORIDE 20 MEQ PACKET (FOR LIQUID) 40 MEQ (18:45)
== END 2023-03-24 19:01 | disposition home or self-care (01) ==
PROVIDERS: Emergency Provider Emergency Medicine; PCP Family Medicine
DX: N17.9 Acute kidney failure, unspecified (principal); R19.5 Other fecal abnormalities; D64.9 Anemia, unspecified; Z79.01 Long term (current) use of anticoagulants; J44.9 Chronic obstructive pulmonary disease, unspecified; I25.10 Atherosclerotic heart disease of native coronary artery without angina pectoris; E78.5 Hyperlipidemia, unspecified; I10 Essential (primary) hypertension; K21.9 Gastro-esophageal reflux disease without esophagitis; I48.91 Unspecified atrial fibrillation
CPT/HCPCS: 36415; 80053; 85025; 85055; 85610; 85730; 86850; 86900; 86901; 96360; 96361; 99283; A9270; J7030

== ENCOUNTER 2023-04-15 12:49 | Outpatient (CLI) | payer MEDICARE, SELFPAY ==
[2023-04-15 13:29] LABS: Appearance Urine Clear (Clear); Bacteria Urine None Seen /hpf; Bilirubin Urine Negative (Negative); Blood Urine Negative (Negative); Color Urine Yellow (Yellow); Glucose Urine UA 1+ mg/dL (Negative); Ketones Urine Negative (Negative); Leukocyte Esterase Ur Negative LEU/UL (NEGATIVE); Nitrate Urine Negative (Negative); Non Pathogenic Casts 0-2; Protein Urine 1+ mg/dL (Negative); RBC Urine 0-2 /hpf (0-2); Specific Grav Ur 1.017 (1.001-1.035); Squamous Epithelial Cell Urine None seen /hpf (Few); Urobilinogen Urine 0.2 mg/dL (<2.0); WBC Urine 0-5 /hpf (0-3)
[2023-04-15 13:50] LABS: Add Urine Microscopic? YES
== END 2023-04-15 12:50 | disposition home or self-care (01) ==
PROVIDERS: PCP Family Medicine; Visit Provider Family Medicine
DX: R30.0 Dysuria (principal); R80.9 Proteinuria, unspecified
CPT/HCPCS: 81001

== ENCOUNTER 2023-05-08 09:13 | Observation (INO) | payer MEDICARE, SELFPAY ==
[2023-05-08] VITALS (13 sets, daily range): BP systolic 135–169; BP diastolic 67–103; PULSE 98–120; RESP 19–27; TEMP 36.4–37.5; O2SAT 91–98; BMI 34.9
--- NOTE | ~2023-05-08 | US_ITS ---
EXAMINATION: US venous doppler [facility] DATE: 05/08/2023 15:06 INDICATION: Lower limb swelling TECHNIQUE: Grayscale ultrasound images without and with compression and Doppler ultrasound images of the bilateral lower extremity veins were obtained. COMPARISON: 02/01/2013 FINDINGS: The visualized portions of right common femoral vein, profunda (deep) femoral vein, femoral vein, pop liteal vein, posterior tibial veins, peroneal veins, gastrocnemius vein and greater saphenous vein ou tflow are patent. The visualized portions of left common femoral vein, profunda femoral vein, femoral vein, popliteal v ein, posterior tibial veins, peroneal veins, gastrocnemius vein and greater saphenous vein outflow ar e patent. IMPRESSION: 1. No deep venous thrombosis in either lower limb. Reviewed, dictated and finalized at location A.
--- NOTE | ~2023-05-08 | XR_ITS ---
EXAMINATION: XR chest 1V portable DATE: 05/08/2023 10:01 INDICATION: Shortness of breath. TECHNIQUE: A single frontal view of the chest was obtained. COMPARISON: Chest 2 views 01/05/2023, chest CT 11/20/2022, 08/26/2022 FINDINGS: There are faint airspace opacities throughout the lungs bilaterally, worst in right lower l gurmeet zone and left mid and lower lung zones. No pleural effusion or pneumothorax. The heart size is no rmal. There are changes of mitral valve replacement. There is a right shoulder arthroplasty. IMPRESSION: 1. Diffuse lung disease with mild worsening in left midlung zone, likely predominantly chronic inters titial lung disease. Worsening in left midlung zone may be an acute exacerbation or atelectasis or pn eumonia. Reviewed, dictated and finalized at location A. IMPRESSION: 1. Diffuse lung disease with mild worsening in left midlung zone, likely predom inantly chronic interstitial lung disease. Worsening in left midlung zone may b e an acute exacerbation or atelectasis or pneumonia.
--- NOTE | 2023-05-08 09:20 | ECG_ITS ---
Measurements Intervals [place] Rate: 107 P: 60 CT: 205 QRS: -17 QRSD: 104 T: 39 QT: 308 QTc: 412 Interpretive Statements SINUS TACHYCARDIA ATRIAL PREMATURE COMPLEX INCOMPLETE RIGHT BUNDLE BRANCH BLOCK LOW QRS VOLTAGE IN PRECORDIAL LEADS BASELINE ARTIFACT- I, III, AVL ABNORMAL ECG COMPARED TO ECG 11/20/2022 17:11:39 NO SIGNIFICANT CHANGES Electronically Signed On 05-08-2023 10:39:54 CDT by Miky Sorensen D.O.
--- NOTE | 2023-05-08 09:36 | ED.SOB ---
HPI - SOB/Dyspnea General Chief Complaint: Shortness of Breath/Dyspnea Stated Complaint: sore throat, SOB and exhaustion x 3 days Time Seen by Provider: 05/08/23 09:18 Source: patient Mode of arrival: ambulatory Limitations: no limitations History of Present Illness HPI Narrative: 73-year-old female history of COPD, A-fib, anemia presents today with 3 days of shortness of breath and just not feeling well. States she has a sore throat, cough, congestion, chills, body aches, and shortness of breath. Denies fever, nausea, vomiting, diarrhea. Sick contacts include her and her son. Has not tested for COVID and no family has tested for COVID either. Patient is on 2 L nasal cannula at baseline. Related Data Home oxygen amount: 2 liters Home Medications Medication Instructions Recorded Confirmed leflunomide 20 mg tablet 20 mg PO DAILY 07/04/19 05/08/23 potassium chloride 10 mEq See Rx Instructions PO DAILY 03/12/23 05/08/23 tablet,extended release metoprolol tartrate 25 mg tablet 25 mg PO BID 05/08/23 05/08/23 nystatin 100,000 unit/mL oral 1 ml PO QID PRN Pain 05/08/23 05/08/23 suspension pravastatin 10 mg tablet 10 mg PO DAILY 05/08/23 05/08/23 sotalol 80 mg tablet 80 mg PO BID 05/08/23 05/08/23 Allergies Allergy/AdvReac Type Severity Reaction Status Date / Time amoxicillin [From Augmentin] Allergy Severe Confusion Verified 05/08/23 09:14 clavulanic acid Allergy Severe Confusion Verified 05/08/23 09:14 [From Augmentin] ciprofloxacin Allergy Mild Unknown Verified 05/08/23 09:14 codeine Allergy Unknown Unknown Verified 05/08/23 09:14 levofloxacin Allergy Unknown Unknown Verified 05/08/23 09:14 lisinopril Allergy Unknown Unknown Verified 05/08/23 09:14 tramadol Allergy Mild Other Uncoded 05/08/23 09:14 [facility] Past Medical History Medical History BMI 35.0-35.9,adult BMI over 35 Chronic anemia Chronic anticoagulation Chronic diarrhea Chronic obstructive pulmonary disease, unspecified Coronary artery disease COVID-19 Cubital tunnel syndrome on right Dyslipidemia Dysuria Essential hypertension Exocrine pancreatic insufficiency Facial trauma Gastro-esophageal reflux disease without esophagitis Iron deficiency anemia Multifocal atrial tachycardia Paroxysmal atrial fibrillation Pneumathemia Pneumonia Polymyalgia rheumatica Small vessel disease, cerebrovascular TIA (transient ischemic attack) Venous insufficiency Surgical History Surgical History H/O endoscopy History of Achilles tendon repair History of bilateral carpal tunnel release History of bilateral knee replacement History of cardiac catheterization History of cataract extraction Left History of colonoscopy with polypectomy History of coronary artery bypass graft x 2 (12/2013) History of hand surgery trigger finger, thumb History of heart artery stent History of mitral valve repair History of shoulder surgery History of spinal surgery Lumbar micro discectomy infusion. Family History Family History Mother Cerebrovascular accident Family history of diabetes mellitus in first degree relative Family history of coronary artery disease Acute myocardial infarction Diabetes mellitus Father Carcinoma of colon Family history of lung cancer Family history of malignant neoplasm of esophagus Sibling Liver disease Liver transplant recipient Other Family history of malignant neoplasm of brain Family history of malignant neoplasm of stomach Social History Social History Social History: Surrogate medical decision maker: Filippo Clifford, spouse. Code status: Full code. Smoking status: Never smoker Second hand tobacco smoke exposure: No Alcohol intake: never Alcohol use details: Rare alcoho
[2023-05-08 10:04] LABS: Basophils Absolute Auto 0.1 K/mm3 (0.0-0.1); Eosinophils Percent Auto 0.2 % (0-4.4); Hematocrit 39.4 % (37.0-47.0); Hemoglobin 11.9 g/dL (12.0-15.0); Immature Granulocyte Absolute 0.05 K/mm3 (0.00-0.031); Immature Platelet Fraction Pct 8.1 % (0.9-11.2); Lymphocytes Absolute Auto 0.76 K/mm3 (0.9-3.2); Lymphocytes Percent Auto 14.9 % (18.3-44.2); Mean Corpuscular HGB Conc 30.2 g/dl (32-36); Mean Corpuscular Hemoglobin 25.4 pg (26-34); Mean Corpuscular Volume 84.2 fl (80-100); Mean Platelet Volume 10.6 fl (7.4-10.4); Monocytes Absolute Auto 0.8 K/mm3 (0.1-0.6); Monocytes Percent Auto 15.5 % (2.6-8.5); Neutrophils Absolute Auto 3.4 K/mm3 (1.3-6.7); Neutrophils Percent Auto 67.4 % (45.5-73.1); Platelet Count Result 208 k/mm3 (150-375); Red Blood Count 4.68 M/mm3 (4.2-5.4); Red Cell Distribution Width 23.8 % (11.5-14.5); White Blood Count 5.1 K/mm3 (4.5-10.0)
[2023-05-08 10:18] LABS: Influenza A QL RT-PCR Negative (Negative); Influenza B QL RT-PCR Negative (Negative); RSV RNA, RT-PCR Negative (Negative); SARS-CoV-2 RNA PCR Positive (Negative)
[2023-05-08 10:19] LABS: Alanine Aminotransferase 19 U/L (6-35); Albumin Level 3.5 g/dL (3.5-5.1); Alkaline Phosphatase 83 U/L (38-126); Anion Gap 7 mmol/L (8-16); Aspartate Amino Transferase 30 U/L (14-36); Bilirubin,Total 0.5 mg/dL (0.2-1.3); Blood Urea Nitrogen 13 mg/dL (7-17); Calcium 8.5 mg/dL (8.4-10.2); Carbon Dioxide 29 mmol/L (22-30); Chloride 94 mmol/L (98-107); Estimated CRCL calculation 67 ml/min; Estimated Glomerular Filt Rate > 60; Glucose 134 mg/dL (65-110); Potassium 3.7 mmol/L (3.4-5.0); Sodium 130 mmol/L (137-145)
[2023-05-08 10:23] LABS: Anisocytosis 1+ (NORMAL); Hypochromasia 1+ (NORMAL); Microcytosis 1+ (NORMAL); Platelet Estimate Adequate (Adequate); Schistocytes None Seen (NORMAL)
[2023-05-08 10:26] LABS: NT Pro B Type Natriuretic Pept 168 pg/mL (19.9-100)
[2023-05-08 10:32] LABS: Troponin I < 0.012 ng/mL (0.000-0.034)
[2023-05-08] MEDS: SODIUM CHLORIDE 0.9% IV 500 ML 999 ML IV CONT (10:37)
[2023-05-08 10:38] LABS: Appearance Urine Clear (Clear); Bacteria Urine None Seen /hpf; Bilirubin Urine Negative (Negative); Blood Urine Negative (Negative); Color Urine Yellow (Yellow); Glucose Urine UA Negative (Negative); Ketones Urine Trace mg/dL (Negative); Leukocyte Esterase Ur Negative LEU/UL (Negative); Need Manual Microscopic Reviewed; Nitrate Urine Negative (Negative); Non Pathogenic Casts 0-2; Protein Urine 3+ mg/dL (Negative); RBC Urine 0-2 /hpf (0-2); Specific Grav Ur 1.029 (1.001-1.035); Squamous Epithelial Cell Urine Few /hpf (Few); WBC Urine 0-5 /hpf; pH Urine 5.5 (5.0-9.0)
[2023-05-08 10:42] LABS: Add Urine Microscopic? YES
[2023-05-08 11:48] LABS: INR 1.5; Prothrombin Time 18.8 Seconds (11.1-14.7)
--- NOTE | 2023-05-08 12:18 | PM.IMHP ---
H&P: HPI History of Present Illness Date/Time: 05/08/23 12:18 Chief Complaint: dyspnea Narrative: this is a 73-year-old female patient with a past history of COPD on 2 L oxygen at home, paroxysmal atrial fibrillation, chronic anemia, polymyalgia rheumatica, coronary artery disease and hypertension who is admitted to the hospital with 3 days systems of worsening dyspnea as well as significantly sore throat limiting ability to take oral food. Patient reports she generally started feeling unwell about 3 days ago and has progressively worsened each day. Ultimately she came to the emergency department due to significant sore throat and worsening dyspnea. Patient found to be COVID positive. Additional findings in the emergency department include sodium of 130 with a history of chronic hyponatremia on prior admissions. patient initiated on remdesivir and admitted for further management of COPD exacerbation and COVID. Review of Systems Review of Systems: All systems reviewed & are unremarkable except as noted in HPI and below PMFSH Past Medical History Medical History BMI 35.0-35.9,adult BMI over 35 Chronic anemia Chronic anticoagulation Chronic diarrhea Chronic hyponatremia Chronic obstructive pulmonary disease, unspecified Coronary artery disease COVID-19 Cubital tunnel syndrome on right Dyslipidemia Dysuria Essential hypertension Exocrine pancreatic insufficiency Facial trauma Gastro-esophageal reflux disease without esophagitis Iron deficiency anemia Multifocal atrial tachycardia Paroxysmal atrial fibrillation Pneumathemia Pneumonia Polymyalgia rheumatica Small vessel disease, cerebrovascular TIA (transient ischemic attack) Venous insufficiency Surgical History Surgical History H/O endoscopy History of Achilles tendon repair History of bilateral carpal tunnel release History of bilateral knee replacement History of cardiac catheterization History of cataract extraction Left History of colonoscopy with polypectomy History of coronary artery bypass graft x 2 (12/2013) History of hand surgery trigger finger, thumb History of heart artery stent History of mitral valve repair History of shoulder surgery History of spinal surgery Lumbar micro discectomy infusion. Family History Family History Mother Cerebrovascular accident Family history of diabetes mellitus in first degree relative Family history of coronary artery disease Acute myocardial infarction Diabetes mellitus Father Carcinoma of colon Family history of lung cancer Family history of malignant neoplasm of esophagus Sibling Liver disease Liver transplant recipient Other Family history of malignant neoplasm of brain Family history of malignant neoplasm of stomach Social History Social History Social History: Surrogate medical decision maker: Filippo Ralphwell, spouse. Code status: Full code. Smoking status: Never smoker Second hand tobacco smoke exposure: No Alcohol intake: never Alcohol use details: Rare alcohol use in moderation. Substance use: never Substance use type: does not use Lack of Transportation: No Lack of Food: Never True Current Housing: I Have Housing Concerned About Future Housing: No Difficulty Paying Gas/Electric Bills: No Difficulty Paying for Meds: No Currently Unemployed: No Education: High School Diploma/GED Difficulty w/ Childcare or Family Care: No Living arrangements: with family Additional living arrangements comments: Lives in [place] with spouse. Occupation/Education: retired Additional occupation/education comments: Worked in [employer]. Gender identity (if verbalized by the patient): Female Spiritual care concerns: N
--- NOTE | 2023-05-08 12:23 | PC.NURSE ---
This patient, Laura Clifford, was admitted to 2 Medical Room 241-01. Patient/family oriented to hospital policies and general routines including ID bracelet, bed and alarms, visiting hours, pain management, procedures, bathroom and other care routines, personal items, smoking policy, room service/diet, and visiting hours. Information on how to activate the Rapid Response Team has been discussed. Patient/Family are encouraged to report perceived risks to care and to ask questions if they do not understand what they are told or what they should do.
[2023-05-08 13:28] LABS: Hemoglobin A1C 7.3 % (<5.7)
[2023-05-08] MEDS: REMDESIVIR 200 MG/NS 250 ML 200 MG/250 ML BAG 250 MG IVPB (13:30)
[2023-05-08] MEDS: FUROSEMIDE 40 MG TABLET PO (13:32)
[2023-05-08] MEDS: ALBUTEROL SULFATE (*SP) AEROSOL 1 PUFF 2 PUFF INHALATION ×2 (16:07→20:38)
[2023-05-08] MEDS: ALBUTEROL SULFATE (*SP) INHALER 1 PUFF (16:07)
[2023-05-08 17:16] LABS: Glucose Point of Care 195 mg/dl (65-105)
[2023-05-08] MEDS: METOPROLOL TARTRATE 25 MG TABLET PO (20:01)
[2023-05-08] MEDS: RIVAROXABAN 20 MG TABLET PO (20:01)
[2023-05-08] MEDS: SOTALOL HCL 80 MG TABLET PO (20:02)
[2023-05-08 20:47] LABS: Glucose Point of Care 230 mg/dl (65-105)
[2023-05-08] MEDS: INSULIN ASPART (*BKC) 100 UNITS/ML SUB-Q (20:51)
[2023-05-09] VITALS (19 sets, daily range): BP systolic 122–143; BP diastolic 48–88; PULSE 90–116; RESP 16–24; TEMP 35.8–36.7; O2SAT 92–97
[2023-05-09] MEDS: ALBUTEROL SULFATE (*SP) AEROSOL 1 PUFF 2 PUFF INHALATION ×5 (00:55→20:55)
[2023-05-09 05:26] LABS: Basophils Percent Auto 0.4 % (0.2-1.2); Hematocrit 37.4 % (37.0-47.0); Hemoglobin 11.6 g/dL (12.0-15.0); Immature Granulocyte Absolute 0.04 K/mm3 (0.00-0.031); Immature Granulocyte Percent A 0.7 % (0-0.5); Immature Platelet Fraction Pct 7.9 % (0.9-11.2); Lymphocytes Absolute Auto 0.92 K/mm3 (0.9-3.2); Lymphocytes Percent Auto 16.5 % (18.3-44.2); Mean Corpuscular Hemoglobin 25.6 pg (26-34); Mean Corpuscular Volume 82.6 fl (80-100); Mean Platelet Volume 11.1 fl (7.4-10.4); Monocytes Absolute Auto 0.9 K/mm3 (0.1-0.6); Monocytes Percent Auto 15.6 % (2.6-8.5); Neutrophils Absolute Auto 3.7 K/mm3 (1.3-6.7); Neutrophils Percent Auto 66.8 % (45.5-73.1); Platelet Count Result 228 k/mm3 (150-375); Red Blood Count 4.53 M/mm3 (4.2-5.4); Red Cell Distribution Width 22.5 % (11.5-14.5); White Blood Count 5.6 K/mm3 (4.5-10.0)
[2023-05-09 05:33] LABS: Alanine Aminotransferase 17 U/L (6-35); Anion Gap 7 mmol/L (8-16); Blood Urea Nitrogen 15 mg/dL (7-17); Calcium 8.3 mg/dL (8.4-10.2); Carbon Dioxide 31 mmol/L (22-30); Chloride 92 mmol/L (98-107); Estimated CRCL calculation 67 ml/min; Estimated Glomerular Filt Rate > 60; Glucose 154 mg/dL (65-110); Potassium 3.4 mmol/L (3.4-5.0); Sodium 130 mmol/L (137-145)
[2023-05-09 05:34] LABS: Prothrombin Time 24.6 Seconds (11.1-14.7)
[2023-05-09 07:50] LABS: Anisocytosis 3+ (NORMAL); Platelet Estimate Adequate (Adequate); Schistocytes None Seen (NORMAL)
[2023-05-09] MEDS: UMECLIDINIUM/VILANTEROL 62.5-25 MCG ELLIPTA 1 PUFF INHALATION (08:17)
--- NOTE | 2023-05-09 08:42 | PM.IMPN ---
Progress Note: A&P Assessment and Plan (1) COPD exacerbation: Code(s): J44.1 - Chronic obstructive pulmonary disease with (acute) exacerbation Status: Acute Assessment and Plan: Underlying COPD on 2 L nasal cannula home. Chest x-ray shows some worsening of chronic lung changes. Feeling better today. Will continue with steroid and remdesivir (2) COVID: Code(s): U07.1 - COVID-19 Status: Acute Assessment and Plan: Patient is feeling slightly better. Decreased shortness of breath. Will continue with Remdesivir and dexamethasone initiated. (3) Atrial fibrillation: Qualifiers: Atrial fibrillation type: paroxysmal Qualified Code(s): I48.0 - Paroxysmal atrial fibrillation Code(s): I48.91 - Unspecified atrial fibrillation Status: Acute Assessment and Plan: History of chronic atrial fibrillation, initial rhythm is sinus tachycardia. Patient did not receive her metoprolol or sotalol this morning, she takes both Q12h. Patient is on telemetry monitoring at this time. She is on Xarelto at home and this will be continued. Stable current meds, continue treatment (4) Diabetes: Qualifiers: Diabetes mellitus type: type 2 Diabetes mellitus fci insulin use: without exterminator termite use Diabetes mellitus complication status: without complication Qualified Code(s): E11.9 - Type 2 diabetes mellitus without complications Code(s): E11.9 - Type 2 diabetes mellitus without complications Status: Acute Assessment and Plan: ACHS finger stick glucose with corrective insulin. Hgb A1c 7.3 on this visit. Patient on metformin at home. Stable, could (5) Essential hypertension: Code(s): I10 - Essential (primary) hypertension Status: Acute Assessment and Plan: Continue home blood pressure medications. Blood pressure reviewed and found to be consistently elevated without need for emergent intervention Stable, continue treatment (6) Chronic hyponatremia: Code(s): E87.1 - Hypo-osmolality and hyponatremia Status: Acute Assessment and Plan: Sodium levels chronically in the 130s, currently is 130. Patient has no acute neurologic changes, nausea or vomiting. Monitor with daily labs. Likely related to chronic COPD and acute COVID infection (7) Peripheral edema: Code(s): R60.9 - Edema, unspecified Status: Acute Assessment and Plan: Edema is much better. Venous duplex ultrasounds negative for DVTs Plan Patient is slightly better Will continue current treatment. isolation precautions for COVID vital signs q.4 hours for 24 hours telemetry every 4 hours, history of paroxysmal atrial fibrillation oxygen, titrate as needed baseline 2 liters/minute diet heart healthy and carbohydrate consistent with dietary supplements remdesivir an dexamethasone for COVID infection with increased oxygen needs supplemental insulin while hospitalized VT prophylaxis Xarelto GI prophylaxis pantoprazole medication reconciliation completed p.r.n. pain: Tylenol, Thompson, morphine p.r.n. nausea: Zofran code status: Full code Subjective Date/time seen: 05/09/23 08:42 Interval history: Patient was seen during the morning rounds today. Mild shortness of breath. No chest pain. No Abdominal pain, nausea or vomiting. Mood stable Review of Systems Review of Systems: All systems reviewed & are unremarkable except as noted in HPI and below Exam Narrative: GENERAL: chronically ill-appearing, alert and oriented, [id number] dyspnea, speaking in 5-6 word sentences HEENT: Pupils are equally round and briskly reactive to light. Extraocular muscles are intact. Oral mucous membranes are moist. pharyngeal erythema noted NECK: The patient has no noted JVD. No adenopathy is appreciated. CHEST/LUNGS: Air entry is better, few exp wheeze HEART: The patient has a mildly tachycardic rate and regular rhythm. N
[2023-05-09 08:57] LABS: Glucose Point of Care 171 mg/dl (65-105)
[2023-05-09] MEDS: FUROSEMIDE 40 MG TABLET PO (09:05)
[2023-05-09] MEDS: metFORMIN HCL XR 500 MG TAB.SR.24H 1000 MG PO (09:05)
[2023-05-09] MEDS: PANTOPRAZOLE 40 MG TABLET PO (09:06)
[2023-05-09] MEDS: METOPROLOL TARTRATE 25 MG TABLET PO ×2 (09:06→20:56)
[2023-05-09] MEDS: POTASSIUM CHLORIDE 20 MEQ ER TABLET PO (09:06)
[2023-05-09] MEDS: PRAVASTATIN SODIUM 10 MG TABLET PO (09:07)
[2023-05-09] MEDS: SOTALOL HCL 80 MG TABLET PO ×2 (09:07→20:57)
[2023-05-09] MEDS: REMDESIVIR 100 MG/NS 250 ML 100 MG/250 ML BAG 250 MG IVPB (10:04)
[2023-05-09 11:56] LABS: Glucose Point of Care 241 mg/dl (65-105)
[2023-05-09] MEDS: INSULIN ASPART (*BKC) 100 UNITS/ML SUB-Q ×3 (12:03→20:53)
--- NOTE | 2023-05-09 14:00 | PCRCNOTE ---
Window of time for administration has passed. See next scheduled administration.
[2023-05-09 16:51] LABS: Glucose Point of Care 327 mg/dl (65-105)
[2023-05-09] MEDS: RIVAROXABAN 20 MG TABLET PO (16:53)
[2023-05-09] MEDS: LEFLUNOMIDE 20 MG TABLET PO (20:56)
[2023-05-09] MEDS: PRAMIPEXOLE 0.5 MG TABLET PO (20:56)
[2023-05-09] MEDS: MAGNESIUM OXIDE 400 MG TABLET PO (20:57)
[2023-05-09 22:25] LABS: Glucose Point of Care 263 mg/dl (65-105)
[2023-05-10] VITALS (15 sets, daily range): BP systolic 122–163; BP diastolic 60–91; PULSE 74–116; RESP 16–19; TEMP 36.3–36.6; O2SAT 92–97
[2023-05-10] MEDS: ALBUTEROL SULFATE (*SP) AEROSOL 1 PUFF 2 PUFF INHALATION ×6 (00:40→20:16)
[2023-05-10 04:54] LABS: Alanine Aminotransferase 15 U/L (6-35); Estimated CRCL calculation 78 ml/min; Estimated Glomerular Filt Rate > 60
[2023-05-10 05:51] LABS: INR 3.3; Prothrombin Time 36.5 Seconds (11.1-14.7)
--- NOTE | 2023-05-10 07:25 | PM.IMPN ---
Progress Note: A&P Assessment and Plan (1) COPD exacerbation: Code(s): J44.1 - Chronic obstructive pulmonary disease with (acute) exacerbation Status: Acute Assessment and Plan: - Underlying COPD on 2 L nasal cannula home. Denies tobacco history. Improving symptoms at this time. (2) COVID: Code(s): U07.1 - COVID-19 Status: Acute Assessment and Plan: Stable oxygenation on home O2 level. - Remdesivir and Dexamethasone day 3 today. - Anticoagulation with xarelto to continue. (3) Atrial fibrillation: Qualifiers: Atrial fibrillation type: paroxysmal Qualified Code(s): I48.0 - Paroxysmal atrial fibrillation Code(s): I48.91 - Unspecified atrial fibrillation Status: Acute Assessment and Plan: Stable rate and denies new symptomology. - Cont. bb as per home regimen. (4) Diabetes: Qualifiers: Diabetes mellitus type: type 2 Diabetes mellitus long term care phlebotomist insulin use: without long term care phlebotomist use Diabetes mellitus complication status: without complication Qualified Code(s): E11.9 - Type 2 diabetes mellitus without complications Code(s): E11.9 - Type 2 diabetes mellitus without complications Status: Acute Assessment and Plan: ACHS finger stick glucose with corrective insulin. Hgb A1c 7.3 on this visit. Patient on metformin at home. Stable, could (5) Essential hypertension: Code(s): I10 - Essential (primary) hypertension Status: Acute Assessment and Plan: - Stable, continue treatment, 122/91. (6) Chronic hyponatremia: Code(s): E87.1 - Hypo-osmolality and hyponatremia Status: Acute Assessment and Plan: Chronic hyponatremia on chart review. Possibly 2/2 chronic diuretic rx. Slight improvement with sodium at 131 today. (7) Peripheral edema: Code(s): R60.9 - Edema, unspecified Status: Acute Assessment and Plan: Stable mild edema. Noted negative dopplers. Plan Stable oxygenation on day 3 of remdesivir and dexamethasone. Recommend to complete full course 5 days of remdesivir. Does not appear to have severe copd exacerbation and consider dc dexamethasone on discharge. Full anticoag with xarelto. Continue telemetry, consider uptitration of bb if rate concerns, did have some mild transient tachycardia this am but resolved after am med pass. Cont. current isolation precautions, diet, and VS frequency. Time Spent With Patient Time: >40 minutes. Subjective Date/time seen: 05/10/23 07:25 Interval history: Patient states she is doing well and breathing at her baseline. She notes that she felt she lost a few days on her recollection of the last week. Review of Systems Review of Systems: No new ROS items across 10 systems. Exam Narrative: GENERAL APPEARANCE: Appears to be in no acute distress. HEAD: normocephalic atraumatic EYES: PERRL, EOMI. Vision grossly intact. ENT: Hearing grossly intact, no nasal discharge NECK: Neck supple, trachea midline. CARDIAC: Normal S1/S2. Rhythm is regular. No murmurs, rubs, or gallops. No cyanosis or pallor. Extremities are warm and well perfused. LUNGS: Clear to auscultation without rales, rhonchi, wheezing or diminished breath sounds. Respirations even and unlabored. ABDOMEN: BS positive x 4 quadrants. Soft, nondistended, nontender. No guarding or rebound. MSK: No joint tenderness/swelling, fair strength in all extremities. PERIPHERAL VASCULAR: Peripheral pulses palpable. Normal perfusion, cap refill <2 seconds. No edema. NEURO: Follows commands. No focal deficits. SKIN: [place] without lesions or eruptions. PSYCH: Stable, no paranoia or delusional thinking. Objective Data Vital Signs Vital Signs: Vital Signs - 24 hr 05/09/23 08:18 05/09/23 09:06 05/09/23 09:07 Temperature Pulse Rate 116 H 116 H Respiratory Rate Blood Pressure Pulse Oximetry 94 Oxygen Delivery Nasal Cannula Oxygen Flow Rate 2
[2023-05-10 07:55] LABS: Glucose Point of Care 180 mg/dl (65-105)
[2023-05-10 08:05] LABS: Basophils Percent Auto 0.8 % (0.2-1.2); Hematocrit 40.6 % (37.0-47.0); Hemoglobin 11.6 g/dL (12.0-15.0); Immature Granulocyte Absolute 0.02 K/mm3 (0.00-0.031); Immature Granulocyte Percent A 0.5 % (0-0.5); Immature Platelet Fraction Pct 4.8 % (0.9-11.2); Lymphocytes Percent Auto 20.4 % (18.3-44.2); Mean Corpuscular HGB Conc 28.6 g/dl (32-36); Mean Corpuscular Hemoglobin 25.8 pg (26-34); Mean Corpuscular Volume 90.2 fl (80-100); Mean Platelet Volume 11.7 fl (7.4-10.4); Monocytes Absolute Auto 0.7 K/mm3 (0.1-0.6); Monocytes Percent Auto 18.1 % (2.6-8.5); Neutrophils Absolute Auto 2.4 K/mm3 (1.3-6.7); Neutrophils Percent Auto 60.2 % (45.5-73.1); Platelet Count Result 221 k/mm3 (150-375); Red Cell Distribution Width 23.8 % (11.5-14.5); White Blood Count 3.9 K/mm3 (4.5-10.0)
[2023-05-10 08:22] LABS: Alanine Aminotransferase 15 U/L (6-35); Albumin Level 3.3 g/dL (3.5-5.1); Alkaline Phosphatase 68 U/L (38-126); Anion Gap 11 mmol/L (8-16); Aspartate Amino Transferase 36 U/L (14-36); Bilirubin,Total 0.5 mg/dL (0.2-1.3); Blood Urea Nitrogen 31 mg/dL (7-17); Calcium 8.4 mg/dL (8.4-10.2); Carbon Dioxide 24 mmol/L (22-30); Chloride 96 mmol/L (98-107); Estimated CRCL calculation 78 ml/min; Estimated Glomerular Filt Rate > 60; Glucose 181 mg/dL (65-110); Potassium 3.8 mmol/L (3.4-5.0); Sodium 131 mmol/L (137-145)
[2023-05-10] MEDS: FUROSEMIDE 40 MG TABLET PO (08:28)
[2023-05-10] MEDS: metFORMIN HCL XR 500 MG TAB.SR.24H 1000 MG PO (08:28)
[2023-05-10] MEDS: SOTALOL HCL 80 MG TABLET PO ×2 (08:29→21:40)
[2023-05-10] MEDS: METOPROLOL TARTRATE 25 MG TABLET PO ×2 (08:29→21:40)
[2023-05-10] MEDS: POTASSIUM CHLORIDE 20 MEQ ER TABLET PO (08:29)
[2023-05-10] MEDS: PANTOPRAZOLE 40 MG TABLET PO (08:29)
[2023-05-10] MEDS: PRAVASTATIN SODIUM 10 MG TABLET PO (08:29)
[2023-05-10 08:37] LABS: Anisocytosis 2+ (NORMAL); Hypochromasia 1+ (NORMAL); Microcytosis 2+ (NORMAL); Ovalocytes 1+ (NORMAL); Platelet Estimate Adequate (Adequate)
[2023-05-10 08:38] LABS: Schistocytes None Seen (NORMAL)
[2023-05-10] MEDS: UMECLIDINIUM/VILANTEROL 62.5-25 MCG ELLIPTA 1 PUFF INHALATION (08:54)
[2023-05-10] MEDS: REMDESIVIR 100 MG/NS 250 ML 100 MG/250 ML BAG 250 MG IVPB (10:04)
[2023-05-10 11:50] LABS: Glucose Point of Care 256 mg/dl (65-105)
[2023-05-10] MEDS: INSULIN ASPART (*BKC) 100 UNITS/ML SUB-Q ×3 (12:03→21:39)
[2023-05-10 17:03] LABS: Glucose Point of Care 368 mg/dl (65-105)
[2023-05-10] MEDS: INSULIN GLARGINE (*BKC) 100 UNITS/ML 15 UNITS SUB-Q (17:34)
[2023-05-10] MEDS: RIVAROXABAN 20 MG TABLET PO (17:34)
[2023-05-10] MEDS: PRAMIPEXOLE 0.5 MG TABLET PO (21:40)
[2023-05-10] MEDS: LEFLUNOMIDE 20 MG TABLET PO (21:40)
[2023-05-10] MEDS: MAGNESIUM OXIDE 400 MG TABLET PO (21:40)
[2023-05-10] MEDS: BENZOCAINE/MENTHOL (*BKC) 18 EA LOZENGE 1 LOZENGE PO (21:44)
[2023-05-10 22:01] LABS: Glucose Point of Care 325 mg/dl (65-105)
[2023-05-11] VITALS (11 sets, daily range): BP systolic 126–147; BP diastolic 61–76; PULSE 51–98; RESP 18–20; TEMP 36.2–36.7; O2SAT 90–97
[2023-05-11] MEDS: ALBUTEROL SULFATE (*SP) AEROSOL 1 PUFF 2 PUFF INHALATION ×4 (00:52→13:15)
[2023-05-11 06:10] LABS: Basophils Percent Auto 0.2 % (0.2-1.2); Hematocrit 38.4 % (37.0-47.0); Hemoglobin 11.6 g/dL (12.0-15.0); Immature Granulocyte Absolute 0.02 K/mm3 (0.00-0.031); Immature Granulocyte Percent A 0.5 % (0-0.5); Lymphocytes Absolute Auto 0.81 K/mm3 (0.9-3.2); Lymphocytes Percent Auto 18.2 % (18.3-44.2); Mean Corpuscular HGB Conc 30.2 g/dl (32-36); Mean Corpuscular Hemoglobin 25.2 pg (26-34); Mean Corpuscular Volume 83.3 fl (80-100); Mean Platelet Volume 10.3 fl (7.4-10.4); Monocytes Absolute Auto 0.6 K/mm3 (0.1-0.6); Monocytes Percent Auto 13.5 % (2.6-8.5); Neutrophils Percent Auto 67.6 % (45.5-73.1); Platelet Count Result 238 k/mm3 (150-375); Red Blood Count 4.61 M/mm3 (4.2-5.4); Red Cell Distribution Width 22.5 % (11.5-14.5); White Blood Count 4.4 K/mm3 (4.5-10.0)
[2023-05-11 06:19] LABS: Prothrombin Time 33.5 Seconds (11.1-14.7)
[2023-05-11 06:20] LABS: Alanine Aminotransferase 17 U/L (6-35); Albumin Level 3.3 g/dL (3.5-5.1); Alkaline Phosphatase 66 U/L (38-126); Anion Gap 5 mmol/L (8-16); Aspartate Amino Transferase 24 U/L (14-36); Bilirubin,Total 0.4 mg/dL (0.2-1.3); Blood Urea Nitrogen 32 mg/dL (7-17); Calcium 8.6 mg/dL (8.4-10.2); Carbon Dioxide 33 mmol/L (22-30); Chloride 95 mmol/L (98-107); Estimated CRCL calculation 67 ml/min; Estimated Glomerular Filt Rate > 60; Glucose 190 mg/dL (65-110); Potassium 4.1 mmol/L (3.4-5.0); Sodium 133 mmol/L (137-145)
--- NOTE | 2023-05-11 06:39 | P.PNIM_ITS ---
Progress Note: A&P Assessment and Plan (1) COPD exacerbation: Code(s): J44.1 - Chronic obstructive pulmonary disease with (acute) exacerbation Status: Acute Assessment and Plan: * Presented to the ED with complaints of shortness of breath, sore throat * Found to be covid positive, contributing to the COPD exacerbation * Continue home Anoro Ellipta * Continue Dexamethazone 6mg for now * Trend Respiratory status * Continue supplemental oxygen, currently at home settings * Adjust therapy as indicated (2) COVID: Code(s): U07.1 - COVID-19 Status: Acute Assessment and Plan: * Found to be COVID positive on arrival * Continue Remdesivir and dexamethasone Day 3 * Continue supplemental oxygen, wean to home dose * Trend respiratory status * Will need to most likely finish the 5 day course of treatment * Continue isolation (3) Atrial fibrillation: Qualifiers: Atrial fibrillation type: paroxysmal Qualified Code(s): I48.0 - Paroxysmal atrial fibrillation Code(s): I48.91 - Unspecified atrial fibrillation Status: Acute Assessment and Plan: * Hx of A.Fib * EKG showed ST rate of 107 * Continue Xarelto for anticoagulation * Continue tele monitoring for now * Continue home metoprolol 25mg PO BID, and Sotalol 80mg PO BID (4) Diabetes: Qualifiers: Diabetes mellitus type: type 2 Diabetes mellitus tracer powder blender insulin use: without detention use Diabetes mellitus complication status: without complication Qualified Code(s): E11.9 - Type 2 diabetes mellitus without complications Code(s): E11.9 - Type 2 diabetes mellitus without complications Status: Acute Assessment and Plan: * Glucose currently at 190 * Glucose was noted to be 250-350s * Most likely related to steroids * Continue to trend glucose * ISS * Lantus 15 units Daily * Adjust treatment according to glucose results (5) Essential hypertension: Code(s): I10 - Essential (primary) hypertension Status: Acute Assessment and Plan: * BP is currently 126/66 * Continue furosemide 40mg PO PRN, metoprolol 25mg PO BID, Sotalol 80mg PO BID * Trend BP * Adjust therapy as indicated (6) Chronic hyponatremia: Code(s): E87.1 - Hypo-osmolality and hyponatremia Status: Acute Assessment and Plan: * Sodium on admission 130 * Most likely chronic and related to current therapies * Currently sodium is 133 * Continue to trend * Adjust therapy as indicated (7) Peripheral edema: Code(s): R60.9 - Edema, unspecified Status: Acute Assessment and Plan: * Notable bilateral lower extremity edema * Could be related to CHF * Echo from 10/2022 shows EF of 60-65% with an abnormal diastolic dysfunction * Venous doppler negative for any acute findings * Stable * Continue lasix * Trend daily weights * Accurate I&Os Time Spent With Patient Time: 48 minutes Time with patient: Greater than 35 minutes Subjective Date/time seen: 05/11/23 06:39 Interval history: 05/11/23 05/10/23 0725 Patient states she is doing well and breathing at her baseline. She notes that she felt she l
--- NOTE | 2023-05-11 06:39 | PM.IMPN ---
Progress Note: A&P Assessment and Plan (1) COPD exacerbation: Code(s): J44.1 - Chronic obstructive pulmonary disease with (acute) exacerbation Status: Acute Assessment and Plan: Presented to the ED with complaints of shortness of breath, sore throat Found to be covid positive, contributing to the COPD exacerbation Continue home Anoro Ellipta Continue Dexamethazone 6mg for now Trend Respiratory status Continue supplemental oxygen, currently at home settings Adjust therapy as indicated (2) COVID: Code(s): U07.1 - COVID-19 Status: Acute Assessment and Plan: Found to be COVID positive on arrival Continue Remdesivir and dexamethasone Day 3 Continue supplemental oxygen, wean to home dose Trend respiratory status Will need to most likely finish the 5 day course of treatment Continue isolation (3) Atrial fibrillation: Qualifiers: Atrial fibrillation type: paroxysmal Qualified Code(s): I48.0 - Paroxysmal atrial fibrillation Code(s): I48.91 - Unspecified atrial fibrillation Status: Acute Assessment and Plan: Hx of A.Fib EKG showed ST rate of 107 Continue Xarelto for anticoagulation Continue tele monitoring for now Continue home metoprolol 25mg PO BID, and Sotalol 80mg PO BID (4) Diabetes: Qualifiers: Diabetes mellitus type: type 2 Diabetes mellitus fdc insulin use: without predatory animal exterminator use Diabetes mellitus complication status: without complication Qualified Code(s): E11.9 - Type 2 diabetes mellitus without complications Code(s): E11.9 - Type 2 diabetes mellitus without complications Status: Acute Assessment and Plan: Glucose currently at 190 Glucose was noted to be 250-350s Most likely related to steroids Continue to trend glucose ISS Lantus 15 units Daily Adjust treatment according to glucose results (5) Essential hypertension: Code(s): I10 - Essential (primary) hypertension Status: Acute Assessment and Plan: BP is currently 126/66 Continue furosemide 40mg PO PRN, metoprolol 25mg PO BID, Sotalol 80mg PO BID Trend BP Adjust therapy as indicated (6) Chronic hyponatremia: Code(s): E87.1 - Hypo-osmolality and hyponatremia Status: Acute Assessment and Plan: Sodium on admission 130 Most likely chronic and related to current therapies Currently sodium is 133 Continue to trend Adjust therapy as indicated (7) Peripheral edema: Code(s): R60.9 - Edema, unspecified Status: Acute Assessment and Plan: Notable bilateral lower extremity edema Could be related to CHF Echo from 10/2022 shows EF of 60-65% with an abnormal diastolic dysfunction Venous doppler negative for any acute findings Stable Continue lasix Trend daily weights Accurate I&Os Time Spent With Patient Time: 48 minutes Time with patient: Greater than 35 minutes Subjective Date/time seen: 05/11/23 06:39 Interval history: 05/11/23 05/10/23 0725 Patient states she is doing well and breathing at her baseline. She notes that she felt she lost a few days on her recollection of the last week. 05/09/23? 08:42 Interval history: Patient was seen during the morning rounds today. Mild shortness of breath. No chest pain. No Abdominal pain, nausea or vomiting.? Mood stable 05/08/23? 12:18 ?this is a 73-year-old female patient with a past history of COPD on 2 L oxygen at home, paroxysmal atrial fibrillation, chronic anemia, polymyalgia rheumatica, coronary artery disease and hypertension who is admitted to the hospital with 3 days systems of worsening dyspnea as well as significantly sore throat limiting ability to take oral food.? Patient reports she generally started feeling unwell about 3 days ago and has progressively
[2023-05-11 06:47] LABS: Anisocytosis 2+ (NORMAL); Burr Cells 2+ (NORMAL); Platelet Estimate Adequate (Adequate); Schistocytes None Seen (NORMAL)
[2023-05-11 08:23] LABS: Glucose Point of Care 196 mg/dl (65-105)
[2023-05-11] MEDS: UMECLIDINIUM/VILANTEROL 62.5-25 MCG ELLIPTA 1 PUFF INHALATION (08:35)
[2023-05-11] MEDS: metFORMIN HCL XR 500 MG TAB.SR.24H 1000 MG PO (09:39)
[2023-05-11] MEDS: FUROSEMIDE 40 MG TABLET PO (09:39)
[2023-05-11] MEDS: PRAVASTATIN SODIUM 10 MG TABLET PO (09:39)
[2023-05-11] MEDS: SOTALOL HCL 80 MG TABLET PO (09:39)
[2023-05-11] MEDS: POTASSIUM CHLORIDE 20 MEQ ER TABLET PO (09:39)
[2023-05-11] MEDS: PANTOPRAZOLE 40 MG TABLET PO (09:40)
[2023-05-11] MEDS: REMDESIVIR 100 MG/NS 250 ML 100 MG/250 ML BAG 250 MG IVPB (09:40)
[2023-05-11] MEDS: METOPROLOL TARTRATE 25 MG TABLET PO (09:40)
--- NOTE | 2023-05-11 10:45 | PM.DS ---
DS: Admitting Diagnosis Discharge Date 05/11/23 1045 Admitting Diagnosis COVID 19 (+) Acute on chronic respiratory failure COPD exacerbation DS: Summary Hospital Course Hospital Course: Patient is 73-year-old female with a past medical history of COPD on 2 L nasal cannula chronically, AFib, anemia, coronary disease and hypertension who presented to the ED with complaints of worsening dyspnea and sore throat. Upon arrival patient was noted to be COVID positive and sodium was noted to be low. Patient was started on remdesivir supplemental oxygen was increased however has been trending down to her baseline. Currently patient is stable she denies any current chest pain, shortness a breath, nausea, vomiting, diarrhea constipation. Patient did state that she feels like she is back to her baseline. Patient was also on dexamethasone. She did receive 4 days of remdesivir. Patient is stable for discharge for labs and vital signs at this time. Patient has been updated on the plan and has agreed to this plan. Status at Discharge Functional status at discharge: independent ambulation Overall status at discharge: patient is progressing back to baseline Time Spent with Patient Time attestation: Total time spent providing and/or coordinating discharge services: 48 minutes Time spent: Greater than 30 minutes Specific discharge activities: Diagnostic testing, chart review, developing a treatment plan, education, care coordination documentation, physical exam, result review Exam Narrative: General: well-nourished, well-appearing 73-year-old female, sitting up in bed, comfortable, NARD Neuro: awake, alert and oriented x4, speech clear, no focal neuro deficits noted HEENMT: normocephalic, atraumatic, EOMI, sclerae anicteric, moist oral mucosa Respiratory: Clear to auscultation bilaterally without crackles, rhonchi or wheezes, nonlabored breathing Cardio: regular rate, regular rhythm with S1-S2 Abdomen: nondistended, normoactive bowel sounds, soft, nontender to palpation Extremities: no edema, erythema, or tenderness to palpation, DP pulses 2+ bilaterally Skin: no rashes or lesions, warm and dry Psych: appropriate mood and affect, judgment and insight intact DS: Data Data Completed and Pending Labs on day of discharge: Labs from last 24 hours 05/11/23 05/11/23 05/11/23 11:52 08:07 05:59 WBC 4.4 L RBC 4.61 Hgb 11.6 L Hct 38.4 MCV 83.3 D MCH 25.2 L MCHC 30.2 L RDW 22.5 H Plt Count 238 MPV 10.3 Immature Gran % (Auto) 0.5 Neut % (Auto) 67.6 Lymph % (Auto) 18.2 L Reagan % (Auto) 13.5 H Eos % (Auto) 0.0 Baso % (Auto) 0.2 Lymph # (Auto) 0.81 L Reagan # (Auto) 0.6 Eos # (Auto) 0.0 Baso # (Auto) 0.0 Abs Immat Gran (auto) 0.02 Absolute Neuts (auto) 3.0 Absolute Nucleated RBC 0.0 Nucleated RBC % 0.0 Platelet Estimate Adequate Anisocytosis 2+ Kiesha Cells 2+ Schistocytes None seen PT 33.5 H INR 3.0 Sodium 133 L Potassium 4.1 Chloride 95 L Carbon Dioxide 33 H Anion Gap 5 L BUN 32 H Creatinine 0.70 Estim Creat Clear Calc 67 Estimated GFR > 60 Glucose 190 H POC Capillary Glucose 285 H 196 H Calcium 8.6 Total Bilirubin 0.4 AST 24 ALT 17 Alkaline Phosphatase 66 Total Protein 6.0 L Albumin 3.3 L 05/10/23 05/10/23 21:37 17:00 WBC RBC Hgb Hct MCV MCH MCHC RDW Plt Count MPV Immature Gran % (Auto) Neut % (Auto) Lymph % (Auto) Reagan % (Auto) Eos % (Auto) Baso % (Auto) Lymph # (Auto) Reagan # (Auto) Eos # (Auto) Baso # (Auto) Abs Immat Gran (auto) Absolute Neuts (auto) Absolute Nucleated RBC Nucleated RBC % Platelet Estimate Anisocytosis Kiesha Cells Schistocytes PT INR Sodium Potassium Chloride Carbon Dioxide Anion Gap BUN Creatinine Estim Creat Clear Calc Estimated GFR Glucose POC
[2023-05-11 11:55] LABS: Glucose Point of Care 285 mg/dl (65-105)
[2023-05-11] MEDS: INSULIN ASPART (*BKC) 100 UNITS/ML SUB-Q (12:18)
== END 2023-05-11 15:24 | disposition home or self-care (01) ==
LOC: ANHED 09:52 → ANH2MED 12:09
PROVIDERS: Nurse Practitioner; Nurse Practitioner Family; Admitting Provider Internal Medicine; Emergency Provider Nurse Practitioner Family; PCP Family Medicine; Visit Provider Internal Medicine
DX: J44.1 Chronic obstructive pulmonary disease with (acute) exacerbation (principal); U07.1 COVID-19; I10 Essential (primary) hypertension; J84.170 Interstitial lung disease with progressive fibrotic phenotype in diseases classified elsewhere; I48.0 Paroxysmal atrial fibrillation; R60.0 Localized edema; J02.9 Acute pharyngitis, unspecified; R53.81 Other malaise; E87.1 Hypo-osmolality and hyponatremia; D64.9 Anemia, unspecified; Z99.81 Dependence on supplemental oxygen; R19.7 Diarrhea, unspecified; E78.5 Hyperlipidemia, unspecified; K21.9 Gastro-esophageal reflux disease without esophagitis; D50.9 Iron deficiency anemia, unspecified; R00.0 Tachycardia, unspecified; M35.3 Polymyalgia rheumatica; I87.2 Venous insufficiency (chronic) (peripheral); R94.31 Abnormal electrocardiogram [ECG] [EKG]; Z86.16 Personal history of COVID-19; Z87.01 Personal history of pneumonia (recurrent); Z86.73 Personal history of transient ischemic attack (TIA), and cerebral infarction without residual deficits; Z79.899 Other long term (current) drug therapy; Z82.49 Family history of ischemic heart disease and other diseases of the circulatory system
CPT/HCPCS: 36415; 71045; 80048; 80053; 81001; 82565; 82948; 83036; 83880; 84460; 84484; 85025; 85055; 85610; 87637; 93005; 93970; 94640; 96361; 96365; 96366; 96375; 99285; A9270; G0378; J0248; J1100; J1815; J7040

== ENCOUNTER 2023-06-09 10:40 | Outpatient (CLI) | payer MEDICARE, SELFPAY ==
[2023-06-09 11:48] LABS: Alanine Aminotransferase 13 U/L (6-35); Albumin Level 3.5 g/dL (3.5-5.1); Alkaline Phosphatase 66 U/L (38-126); Anion Gap 6 mmol/L (8-16); Aspartate Amino Transferase 23 U/L (14-36); Bilirubin,Total 0.5 mg/dL (0.2-1.3); Blood Urea Nitrogen 14 mg/dL (7-17); Calcium 8.4 mg/dL (8.4-10.2); Carbon Dioxide 34 mmol/L (22-30); Chloride 94 mmol/L (98-107); Cholesterol 92 mg/dL (0-200); Estimated Glomerular Filt Rate > 60; Glucose 139 mg/dL (65-110); HDL Direct 42 mg/dL; Magnesium 1.1 mg/dL (1.6-2.3); Potassium 3.2 mmol/L (3.4-5.0); Sodium 134 mmol/L (137-145); Triglycerides 205 mg/dL (<150)
[2023-06-09 11:59] LABS: LDL Cholesterol Direct 32 mg/dL
== END 2023-06-09 10:41 | disposition home or self-care (01) ==
PROVIDERS: PCP Family Medicine; Visit Provider Internal Medicine Cardiovascular Disease
DX: R60.9 Edema, unspecified (principal); E87.1 Hypo-osmolality and hyponatremia; R60.1 Generalized edema; E87.6 Hypokalemia; E78.5 Hyperlipidemia, unspecified
CPT/HCPCS: 36415; 80053; 80061; 83735

== ENCOUNTER 2023-06-19 09:58 | Outpatient (CLI) | payer MEDICARE, SELFPAY ==
[2023-06-19 11:37] LABS: INR 1.6; Prothrombin Time 19.8 Seconds (11.1-14.7)
[2023-06-19 11:42] LABS: Alanine Aminotransferase 13 U/L (6-35); Albumin Level 3.7 g/dL (3.5-5.1); Alkaline Phosphatase 69 U/L (38-126); Anion Gap 6 mmol/L (8-16); Aspartate Amino Transferase 22 U/L (14-36); Bilirubin,Total 0.5 mg/dL (0.2-1.3); Blood Urea Nitrogen 12 mg/dL (7-17); Calcium 9.2 mg/dL (8.4-10.2); Carbon Dioxide 30 mmol/L (22-30); Chloride 96 mmol/L (98-107); Estimated Glomerular Filt Rate > 60; Glucose 160 mg/dL (65-110); Magnesium 1.5 mg/dL (1.6-2.3); Potassium 3.8 mmol/L (3.4-5.0); Sodium 132 mmol/L (137-145)
== END 2023-06-19 09:59 | disposition home or self-care (01) ==
LOC: ANHLAB 10:00
PROVIDERS: PCP Family Medicine; Visit Provider Internal Medicine Cardiovascular Disease
DX: R60.9 Edema, unspecified (principal)
CPT/HCPCS: 36415; 80053; 83735; 85610

== ENCOUNTER → 2023-08-05 10:51 | Outpatient (REF) | payer MEDICARE, SELFPAY | LOC: ANHLAB 10:51 | PROVIDERS: PCP Family Medicine; Visit Provider Plastic Surgery | DX: R22.30 Localized swelling, mass and lump, unspecified upper limb (principal) | CPT/HCPCS: 88305 ==

== ENCOUNTER 2023-09-18 12:25 | Outpatient (CLI) | payer OTHER, SELFPAY ==
[2023-09-18] VITALS (7 sets, daily range): PULSE 89–109; O2SAT 86–93
--- NOTE | 2023-09-18 14:09 | HOMEO2EVAL ---
Evaluation was performed at [facility] Home Oxygen Evaluation RC: Home Oxygen (O2) Evaluation Start: 09/18/23 14:05 Freq: Status: Active Protocol: RPE Activity Type Activity Date Activity User E-sign Co-sign Detail Recorded Client Recorded Date Recorded By Document 09/18/23 13:00 [email or web address] [email or web address] 09/18/23 14:09 MAILE Document 09/18/23 13:01 [email or web address] [email or web address] 09/18/23 14:09 MAILE Document 09/18/23 13:02 [email or web address] [email or web address] 09/18/23 14:09 MAILE Document 09/18/23 13:06 [email or web address] [email or web address] 09/18/23 14:09 MAILE Document 09/18/23 13:07 [email or web address] [email or web address] 09/18/23 14:09 MAILE Document 09/18/23 13:08 [email or web address] [email or web address] 09/18/23 14:09 MAILE Document 09/18/23 13:15 [email or web address] [email or web address] 09/18/23 14:09 MAILE 09/18/23 09/18/23 09/18/23 13:00 13:01 13:02 Home O2 Evaluation [Oxygen] -Test Phase Resting Resting Resting -Oxygen Delivery Room Air Nasal Cannula Nasal Cannula -Oxygen Flow Rate (L/min) 1 2 [Pulse Oximetry] -Pulse Oximetry (90-100 %) 86 L 87 L 92 [Pulse Rate] -Pulse Rate (60-100 beats/min) 89 [Exercise] -Ambulation Distance (feet) -Ambulation Distance (meters) [Comments] -Home Oxygen Evaluation Comments [Charges] -Evaluation Charges O2 Evaluation by Pulmonary 09/18/23 09/18/23 09/18/23 13:06 13:07 13:08 Home O2 Evaluation [Oxygen] -Test Phase Exercise Exercise Exercise -Oxygen Delivery Nasal Cannula Nasal Cannula Nasal Cannula -Oxygen Flow Rate (L/min) 2 3 4 [Pulse Oximetry] -Pulse Oximetry (90-100 %) 86 L 87 L 92 [Pulse Rate] -Pulse Rate (60-100 beats/min) 109 H [Exercise] -Ambulation Distance (feet) 700 -Ambulation Distance (meters) 213.34 [Comments] -Home Oxygen Evaluation Comments PT WALKED FOR A TOTAL OF 6 MINUTES. PT REQUIRES 2L HOME O2 RESTING AND 4 L WITH EXERTION. OK TO USE CONSERVING DEVICE WITH HOME O2 [Charges] -Evaluation Charges 01/19/24 13:15 Home O2 Evaluation [Oxygen] -Test Phase Resting -Oxygen Delivery Nasal Cannula -Oxygen Flow Rate (L/min) 2 [Pulse Oximetry] -Pulse Oximetry (90-100 %) 93 [Pulse Rate] -Pulse Rate (60-100 beats/min) 90 [Exercise] -Ambulation Distance (feet) -Ambulation Distance (meters) [Comments] -Home Oxygen Evaluation Comments [Charges] -Evaluation Charges
--- NOTE | 2023-09-18 14:11 | PCRCNOTE ---
FAXED HOME O2 EVAL TO [facility]. ALSO SPOKE TO RYAN AT [facility], PT IS EXISTING O2 PT BUT HAS NEW INSURANCE AND REQUESTING POC. I FAXED THE EVAL TO [facility] WELL TO HELP WITH THIS REQUEST AND SET UP OF POC WITH THIS NEW TRANSITION.
== END 2023-09-18 12:26 | disposition home or self-care (01) ==
PROVIDERS: PCP Family Medicine; Visit Provider Nurse Practitioner Family
DX: R09.02 Hypoxemia (principal)
CPT/HCPCS: 94618

== ENCOUNTER 2023-10-21 09:12 | Inpatient (IN) | payer OTHER, SELFPAY ==
[2023-10-21] VITALS (7 sets, daily range): BP systolic 111–149; BP diastolic 62–124; PULSE 93–106; RESP 18–27; TEMP 36.3–37.2; O2SAT 93–96; BMI 34.9
--- NOTE | ~2023-10-21 | CT_ITS ---
EXAMINATION: CT abdomen pelvis w con INDICATION: Abdominal pain TECHNIQUE: Computed tomographic images of the abdomen and pelvis were obtained after the administrati on of 100 cc of Omnipaque 350 intravenous contrast. The dose-length product (DLP) was 748.72 mGy-cm. Automated exposure control and iterative reconstruction technique were employed. COMPARISON: 07/09/2022 FINDINGS: Minimal dependent atelectasis is present in the lung bases. The heart size is normal. Baltazar es of mitral valve surgery are noted. The liver, spleen, pancreas, gallbladder, and adrenal glands ar e normal. Hypoattenuating lesions in the kidneys, measuring up to 3 mm on the left, are too small to characterize but likely represent cysts. There is calcified atherosclerosis of the aorta and many of the other arteries. No free intraperitoneal gas or evidence of bowel obstruction. No pathologically e nlarged abdominal or pelvic lymph nodes are identified. The appendix is normal. There is severe lumba r spondylosis. IMPRESSION: 1. No CT correlate for the patient's symptoms. Reviewed, dictated and finalized at location B. N REPRESENTATIVE
--- NOTE | 2023-10-21 10:03 | ED.GIBLEED ---
HPI - GI Bleed General Chief complaint: GI Bleed <Nuvia Lackey PA-C - Last Filed: 10/21/23 13:18> Stated complaint: BLOOD IN STOOL FOR 6 DAYS <Nuvia Lackey PA-C - Last Filed: 10/21/23 13:18> Time Seen by Provider: 10/21/23 10:00 <Nuvia Lackey PA-C - Last Filed: 10/21/23 13:18> Focused HPI: This is a 73-year-old female that presents to the emergency department for GI bleeding. Reports bright red blood and dark stools. Ongoing over the last week. She takes Xarelto for history of atrial fibrillation. Reports some intermittent abdominal discomfort associated. She does have previous history of GI bleeding. GENERAL: Pale, well-nourished, and in no acute distress. HEAD: Normocephalic, atraumatic. CHEST: Clear to auscultation. ?No respiratory distress. HEART: Regular rate and rhythm.? NEURO: ?Alert and oriented x3. Patient screened in triage and initial orders placed.? ?Additional care and disposition to be based upon?diagnostic testing and treatment. <Nuvia Lackey PA-C - Last Filed: 10/21/23 13:18> Related Data Home medications: Home Medications Medication Instructions Recorded Confirmed leflunomide 20 mg tablet 20 mg PO DAILY 07/04/19 10/21/23 nystatin 100,000 unit/mL oral 1 ml PO QID PRN Pain 05/08/23 10/21/23 suspension sotalol 80 mg tablet 80 mg PO BID 05/08/23 10/21/23 omega 7-pfy-sad-fish oil 100 2 cap PO BID 06/12/23 10/21/23 mg-160 mg-1,000 mg capsule (Fish Oil) <DAVY Crawley Last Filed: 10/21/23 13:18> Allergies/Adverse reactions: Allergies Allergy/AdvReac Type Severity Reaction Status Date / Time ciprofloxacin Allergy Mild Unknown Verified 10/09/23 11:53 codeine Allergy Unknown Unknown Verified 10/09/23 11:53 levofloxacin Allergy Unknown Unknown Verified 10/09/23 11:53 lisinopril Allergy Unknown Unknown Verified 10/09/23 11:53 amoxicillin [From Augmentin] AdvReac Severe Confusion Verified 10/09/23 11:53 clavulanic acid AdvReac Severe Confusion Verified 10/09/23 11:53 [From Augmentin] tramadol AdvReac Mild Confusion Verified 10/09/23 11:53 <Nuvia Lackey PA-C - Last Filed: 10/21/23 13:18> Review of Systems Review of Systems: CONSTITUTIONAL: Denies fever GASTROINTESTINAL: Reports abdominal pain and diarrhea. Denies nausea, vomiting <Nuvia Lackey PA-C - Last Filed: 10/21/23 13:18> All systems reviewed & are unremarkable except as noted in HPI and below <Nuvia Lackey PA-C - Last Filed: 10/21/23 13:18> [facility] Past Medical History Medical History: Medical History Cervical arthritis Chronic anticoagulation Chronic diarrhea Chronic hyponatremia Chronic obstructive pulmonary disease, unspecified Coronary artery disease COVID-19 Dyslipidemia Essential hypertension Exocrine pancreatic insufficiency Facial trauma Gastro-esophageal reflux disease without esophagitis Iron deficiency anemia Microscopic colitis Multifocal atrial tachycardia Paroxysmal atrial fibrillation Pneumonia Polymyalgia rheumatica Small vessel disease, cerebrovascular Transient ischemic attack Type 2 diabetes mellitus Venous insufficiency <Nuvia Lackey PA-C - Last Filed: 10/21/23 13:18> Surgical History Surgical History: Surgical History History of Achilles tendon repair History of bilateral carpal tunnel release History of bilateral knee replacement History of cardiac catheterization History of cataract extraction Left History of colonoscopy with polypectomy History of coronary artery bypass graft x 2 (12/2013) History of hand surgery trigger finger, thumb History of heart artery stent History of mitral valve repair History of shoulder surgery History of spinal surgery Lumbar micro discectomy infusion. <Nuvia Lackey PA-C - Last Filed: 10/21/23 13:18> Family History Family History: Family History (R
[2023-10-21 10:17] LABS: Basophils Absolute Auto 0.1 K/mm3 (0.0-0.1); Basophils Percent Auto 1.1 % (0.2-1.2); Eosinophils Absolute Auto 0.2 K/mm3 (0-0.3); Eosinophils Percent Auto 3.8 % (0-4.4); Hematocrit 27.6 % (37.0-47.0); Hemoglobin 8.5 g/dL (12.0-15.0); Immature Granulocyte Absolute 0.06 K/mm3 (0.00-0.031); Immature Granulocyte Percent A 1.1 % (0-0.5); Lymphocytes Absolute Auto 1.04 K/mm3 (0.9-3.2); Lymphocytes Percent Auto 19.7 % (18.3-44.2); Mean Corpuscular HGB Conc 30.8 g/dl (32-36); Mean Corpuscular Hemoglobin 28.1 pg (26-34); Mean Corpuscular Volume 91.4 fl (80-100); Mean Platelet Volume 11.1 fl (7.4-10.4); Monocytes Absolute Auto 0.8 K/mm3 (0.1-0.6); Monocytes Percent Auto 14.7 % (2.6-8.5); Neutrophils Absolute Auto 3.2 K/mm3 (1.3-6.7); Neutrophils Percent Auto 59.6 % (45.5-73.1); Nucleated Red Blood Cells Perc 0.6 % (0.0-0.2); Platelet Count Result 239 k/mm3 (150-375); Red Blood Count 3.02 M/mm3 (4.2-5.4); Red Cell Distribution Width 17.3 % (11.5-14.5); White Blood Count 5.3 K/mm3 (4.5-10.0)
[2023-10-21 10:30] LABS: Alanine Aminotransferase 16 U/L (6-35); Albumin Level 3.6 g/dL (3.5-5.1); Alkaline Phosphatase 67 U/L (38-126); Anion Gap 3 mmol/L (8-16); Aspartate Amino Transferase 23 U/L (14-36); Bilirubin,Total 0.6 mg/dL (0.2-1.3); Blood Urea Nitrogen 21 mg/dL (7-17); Calcium 8.7 mg/dL (8.4-10.2); Carbon Dioxide 31 mmol/L (22-30); Chloride 96 mmol/L (98-107); Estimated CRCL calculation 55 ml/min; Estimated Glomerular Filt Rate > 60; Glucose 203 mg/dL (65-110); INR 1.8; Partial Thromboplastin Time 34.3 SECONDS (22.3-36.8); Potassium 3.5 mmol/L (3.4-5.0); Prothrombin Time 22.5 Seconds (11.1-14.7); Sodium 130 mmol/L (137-145)
[2023-10-21] MEDS: PANTOPRAZOLE SODIUM IV 40 MG VIAL 80 MG IV PUSH (12:49)
--- NOTE | 2023-10-21 13:44 | PM.IMHP ---
H&P: HPI History of Present Illness Date/Time: 10/21/23 14:15 Chief Complaint: Blood in stools. Narrative: This is a 73-year-old female with history of microscopic colitis, gastritis, chronic diarrhea, paroxysmal atrial fibrillation on chronic anticoagulation, coronary artery disease, hypertension, chronic obstructive pulmonary disease, chronic respiratory failure on 2 L nasal cannula, rheumatoid arthritis, polymyalgia rheumatica, and other comorbidities who presented to the emergency department from home for evaluation of blood in stools. The patient provides the following history. She initially noticed that her stools were dark this past Thursday and she reports having multiple, loose dark stools a day since that time. She had 1 episode where the stools were more bright red in color and admixed with clots. The last day or so she has been feeling lightheaded and dizzy with position changes and she is also endorses nausea and 1 episode of nonbloody and nonbilious emesis. She continues to take her Xarelto with her last dose being sometime yesterday evening. She denies epigastric, abdominal, and rectal pain. No bloating or belching. She denies chest pain and shortness of breath. No NSAID use. She has not been on steroids recently. She drinks alcohol very rarely. In the ED: She was afebrile on arrival with stable vital signs. Labs were significant for hemoglobin of 8.5 (3 g lower compared to labs taken in May 2023), sodium 130, chloride 96, BUN 21, glucose 203. Stool was Hemoccult positive on ED provider exam. She was given 80 mg IV pantoprazole and is being admitted in this setting for close monitoring and GI consultation. Review of Systems Review of Systems: Twelve systems were reviewed and are negative except for as per HPI. [facility] Past Medical History Medical History (Updated 10/21/23 @ 22:49 by Daniela Nix PA-C) Cervical arthritis Chronic anticoagulation Chronic diarrhea Chronic hyponatremia Chronic obstructive pulmonary disease, unspecified Chronic respiratory failure with hypoxia, on home oxygen therapy Coronary artery disease COVID-19 Dyslipidemia Essential hypertension Exocrine pancreatic insufficiency Facial trauma Gastro-esophageal reflux disease without esophagitis Iron deficiency anemia Microscopic colitis Multifocal atrial tachycardia Paroxysmal atrial fibrillation Pneumonia Polymyalgia rheumatica Small vessel disease, cerebrovascular Transient ischemic attack Type 2 diabetes mellitus Venous insufficiency Surgical History Surgical History History of Achilles tendon repair History of bilateral carpal tunnel release History of bilateral knee replacement History of cardiac catheterization History of cataract extraction Left History of colonoscopy with polypectomy History of coronary artery bypass graft x 2 (12/2013) History of hand surgery trigger finger, thumb History of heart artery stent History of mitral valve repair History of shoulder surgery History of spinal surgery Lumbar micro discectomy infusion. Family History Family History Mother Cerebrovascular accident Family history of diabetes mellitus in first degree relative Family history of coronary artery disease Acute myocardial infarction Diabetes mellitus Father Carcinoma of colon Family history of lung cancer Family history of malignant neoplasm of esophagus Sibling Liver disease Liver transplant recipient Other Family history of malignant neoplasm of brain Family history of malignant neoplasm of stomach Social History Social History Social History: Surrogate medical decision maker: Filippo Clifford, spouse. Code status: Full code. Smoking status: Never smoker Second hand tobacco smoke exposure: Yes Alcohol intake: c
[2023-10-21 14:11] LABS: Glucose Point of Care 174 mg/dl (65-105)
[2023-10-21 14:48] LABS: Hematocrit 25.4 % (37.0-47.0)
--- NOTE | 2023-10-21 15:04 | ADMGEN ---
This patient, Laura Clifford, was admitted to [facility] Surg Room 323-02 [id number]. Patient/family oriented to hospital policies and general routines including ID bracelet, bed and alarms, visiting hours, pain management, procedures, bathroom and other care routines, personal items, smoking policy, room service/diet, and visiting hours. Information on how to activate the Rapid Response Team has been discussed. Patient/Family are encouraged to report perceived risks to care and to ask questions if they do not understand what they are told or what they should do.
--- NOTE | 2023-10-21 16:29 | WPDGICN ---
Assessment and Plan Assessment and plan (1) Acute GI bleeding: Code(s): K92.2 - Gastrointestinal hemorrhage, unspecified Status: Acute Assessment and Plan: The black tarry stools began 5 days ago. She has had no abdominal pain she was briefly nauseated this morning but has had no emesis. He denies any use of NSAIDs (2) Anemia: Qualifiers: Anemia type: unspecified type Qualified Code(s): D64.9 - Anemia, unspecified Code(s): D64.9 - Anemia, unspecified Status: Acute Assessment and Plan: she is chronically anemic. Her hemoglobin last fall was 11.9 (3) Paroxysmal atrial fibrillation: Code(s): I48.0 - Paroxysmal atrial fibrillation Status: Chronic Assessment and Plan: she had been in atrial fibrillation for several years and originally taking warfarin but now Xarelto for the past year. She also has a history of having had coronary artery bypass graft and stenting. (4) Chronic diarrhea: Code(s): K52.9 - Noninfective gastroenteritis and colitis, unspecified Status: Acute Assessment and Plan: She had been found to have microscopic colitis. She was taking budesonide but I had ordered for her about 2 years ago she cannot remember how long she took it why she stopped it but now she is taking Lomotil and feels that it manages her symptoms adequately. Plan Will schedule for EGD tomorrow morning. Her Xarelto will be held until after endoscopy and We are certain that she is not having further bleeding. Protonix has been started. Will start a full liquid diet [facility] GI Consult Note Consult date/time: 10/21/23 16:29 HPI: Laura Clifford is a 73 year old female was admitted will because she noticed that she was having black stools since last Thursday and suspects gastrointestinal bleeding. She is on Xarelto which she has taken for atrial fibrillation for the past year. Prior to that she had been on warfarin. She tends to be somewhat anemic her hemoglobin was 11.6 last fall. Today it is 8.5. 2 years ago she had had black stools when she was on warfarin. EGD then only showed mild gastritis. She also had a colonoscopy less than 2 years ago because of diarrhea. She was found have microscopic colitis. She had briefly been on budesonide but has opted to take Lomotil instead. She has had no blood her stools. The stools that she has been passing are black but she sought tinge of red in the 1 of them. she denies vomiting but was somewhat nauseated early this morning but no longer is. Review of Systems Review of Systems: All systems reviewed & are unremarkable except as noted in HPI and below PMFSH Past Medical History Medical History Cervical arthritis Chronic anticoagulation Chronic diarrhea Chronic hyponatremia Chronic obstructive pulmonary disease, unspecified Coronary artery disease COVID-19 Dyslipidemia Essential hypertension Exocrine pancreatic insufficiency Facial trauma Gastro-esophageal reflux disease without esophagitis Iron deficiency anemia Microscopic colitis Multifocal atrial tachycardia Paroxysmal atrial fibrillation Pneumonia Polymyalgia rheumatica Small vessel disease, cerebrovascular Transient ischemic attack Type 2 diabetes mellitus Venous insufficiency Surgical History Surgical History History of Achilles tendon repair History of bilateral carpal tunnel release History of bilateral knee replacement History of cardiac catheterization History of cataract extraction Left History of colonoscopy with polypectomy History of coronary artery bypass graft x 2 (12/2013) History of hand surgery trigger finger, thumb History of heart artery stent History of mitral valve repair History of shoulder surgery History of spinal surgery Lumbar micro discectomy infusion. Family History Family History (Rev
[2023-10-21 16:41] LABS: Glucose Point of Care 139 mg/dl (65-105)
[2023-10-21 20:06] LABS: Hematocrit 23.5 % (37.0-47.0); Hemoglobin 7.2 g/dL (12.0-15.0)
[2023-10-21 20:48] LABS: Glucose Point of Care 129 mg/dl (65-105)
[2023-10-21] MEDS: PRAMIPEXOLE 0.5 MG TABLET PO (23:35)
[2023-10-21] MEDS: SOTALOL HCL 80 MG TABLET PO (23:35)
[2023-10-21] MEDS: METOPROLOL TARTRATE 25 MG TABLET PO (23:35)
[2023-10-22] VITALS (18 sets, daily range): BP systolic 104–167; BP diastolic 53–84; PULSE 84–105; RESP 18–37; TEMP 36.2–37; O2SAT 94–99; BMI 34.9
[2023-10-22 02:16] LABS: Mean Corpuscular HGB Conc 31.9 g/dl (32-36); Mean Corpuscular Hemoglobin 28.6 pg (26-34); Mean Corpuscular Volume 89.9 fl (80-100); Mean Platelet Volume 10.1 fl (7.4-10.4); Platelet Count Result 178 k/mm3 (150-375); Red Blood Count 2.27 M/mm3 (4.2-5.4); Red Cell Distribution Width 17.5 % (11.5-14.5); White Blood Count 5.3 K/mm3 (4.5-10.0)
[2023-10-22 02:31] LABS: Anion Gap 1 mmol/L (8-16); Blood Urea Nitrogen 17 mg/dL (7-17); Calcium 8.2 mg/dL (8.4-10.2); Carbon Dioxide 30 mmol/L (22-30); Chloride 100 mmol/L (98-107); Estimated CRCL calculation 62 ml/min; Estimated Glomerular Filt Rate > 60; Glucose 160 mg/dL (65-110); Magnesium 1.6 mg/dL (1.6-2.3); Potassium 3.2 mmol/L (3.4-5.0); Sodium 131 mmol/L (137-145)
[2023-10-22 02:34] LABS: Hemoglobin 6.5 g/dL (12.0-15.0)
[2023-10-22 02:35] LABS: Hematocrit 20.4 % (37.0-47.0)
[2023-10-22 07:59] LABS: Glucose Point of Care 183 mg/dl (65-105)
--- NOTE | 2023-10-22 08:00 | PC.NURSE ---
NPO for EGD. Morning medications held at this time.
[2023-10-22 08:12] LABS: Hematocrit 24.8 % (37.0-47.0); Hemoglobin 7.8 g/dL (12.0-15.0)
[2023-10-22] MEDS: ALBUTEROL SULFATE (*SP) AEROSOL 1 PUFF INHALATION ×2 (08:34→15:13)
[2023-10-22 12:10] LABS: Glucose Point of Care 150 mg/dl (65-105)
--- NOTE | 2023-10-22 12:16 | PHAR ---
PHARMACY VERIFIED HOME MED: Aformoterol tartrate inhalation solution 15 mcg/2 mL nebulize contents of one vial once daily
--- NOTE | 2023-10-22 12:55 | PC.NURSE ---
To GI Lab per moiz.
[2023-10-22] MEDS: LACTATED RINGERS 1,000 ML 150 ML IV CONT (13:17)
[2023-10-22 13:27] LABS: Glucose Point of Care 130 mg/dl (65-105)
--- NOTE | 2023-10-22 13:29 | WPDANESEPPF ---
Anes - Initial Pre Proc Eval Procedure: Operation Date: 10/22/23 14:00 Proposed Procedures p Esophagogastroduodenoscopy - Andrzej Masters MD Date/Time: 10/22/23 13:29 Surgeon: Kary Vidal MD Pre Op Diagnosis: gi bleed Patient Data Age: 73 Gender: F Height: 1.55 m Weight: 84 kg Last Vital Signs Temp 97.9 F 10/22/23 13:14 Pulse 105 H 10/22/23 13:14 Resp 18 10/22/23 13:14 BP 138/70 10/22/23 13:14 Pulse Ox 95 10/22/23 13:14 O2 Del Method Nasal Cannula 10/22/23 13:14 O2 Flow Rate 2 10/22/23 13:14 FiO2 28 10/22/23 08:34 Allergies Allergy/AdvReac Type Severity Reaction Status Date / Time ciprofloxacin Allergy Mild Unknown Verified 10/09/23 11:53 codeine Allergy Unknown Unknown Verified 10/09/23 11:53 levofloxacin Allergy Unknown Unknown Verified 10/09/23 11:53 lisinopril Allergy Unknown Unknown Verified 10/09/23 11:53 amoxicillin [From Augmentin] AdvReac Severe Confusion Verified 10/09/23 11:53 clavulanic acid AdvReac Severe Confusion Verified 10/09/23 11:53 [From Augmentin] tramadol AdvReac Mild Confusion Verified 10/09/23 11:53 Home Medications Medication Instructions Recorded Confirmed Type leflunomide 20 mg tablet 20 mg PO DAILY 07/04/19 10/21/23 History nitroglycerin 0.4 mg sublingual 0.4 mg sublingual Q5M PRN Chest 08/19/22 10/21/23 Rx tablet Pain #30 tabs inhalational spacing device #1 ea 09/04/22 10/21/23 Rx albuterol sulfate 90 mcg/actuation 1 inh inhalation Q4H PRN shortness 12/15/22 10/21/23 Rx aerosol inhaler (ProAir HFA) of breath or wheezing #6.7 grams pantoprazole 40 mg tablet,delayed 40 mg PO QAM #90 tabs 12/15/22 10/21/23 Rx release alirocumab 75 mg/mL subcutaneous See Rx Instructions .Route 01/08/23 10/21/23 Rx pen injector (Praluent Pen) .COMPLEX #6 mL metformin 500 mg tablet,extended 1,000 mg PO DAILY #180 tabs 03/12/23 10/21/23 Rx release 24 hr nystatin 100,000 unit/mL oral 1 ml PO QID PRN Pain 05/08/23 10/21/23 History suspension sotalol 80 mg tablet 80 mg PO BID 05/08/23 10/21/23 History diphenoxylate-atropine 2.5 1 tablet PO TID PRN Diarrhea #60 05/22/23 10/21/23 Rx mg-0.025 mg tablet (Lomotil) tabs potassium chloride 10 mEq See Rx Instructions PO BID #60 tabs 06/09/23 10/21/23 Rx tablet,extended release omega [id number]-[id number]-[id number]-fish oil 100 2 cap PO BID 06/12/23 10/21/23 History mg-160 mg-1,000 mg capsule (Fish Oil) arformoterol 15 mcg/2 mL solution 2 ml inhalation DAILY #60 mL 06/17/23 10/21/23 Rx for nebulization (Valdovana) magnesium oxide 400 mg (241.3 mg 400 mg PO BID #180 tabs 06/19/23 10/21/23 Rx magnesium) tablet spironolactone 25 mg tablet 25 mg PO DAILY #30 tabs 09/11/23 10/21/23 Rx furosemide 40 mg tablet 40 mg PO DAILY 10/21/23 10/21/23 History metoprolol tartrate 25 mg tablet 25 mg PO BID 10/21/23 10/21/23 History pramipexole 0.5 mg tablet 0.5 mg PO HS 10/21/23 10/21/23 History pravastatin 10 mg tablet 10 mg PO DAILY 10/21/23 10/21/23 History rivaroxaban 20 mg tablet (Xarelto) 20 mg PO DAILY 10/21/23 10/21/23 History Laboratory Tests 10/21/23 10/21/23 10/21/23 10:07 14:08 14:32 WBC RBC Hgb 8.0 L g/dL (12.0-15.0) Hct 25.4 L % (37.0-47.0) MCV MCH MCHC RDW Plt Count MPV Sodium Potassium Chloride Carbon Dioxide Anion Gap BUN Creatinine Estim Creat Clear Calc Estimated GFR Glucose POC Capillary Glucose 174 H mg/dl (65-105) Calcium Magnesium Blood Type A Negative Antibody Screen Negative Crossmatch See Detail 10/21/23 10/21/23 10/21/23 16:39 19:55 20:02 WBC RBC Hgb 7.2 L g/dL (12.0-15.0) Hct 23.5 L % (37.0-47.0) MCV
[2023-10-22] MEDS: BENZOCAINE (*SP) 60 ML SPRAY CAN (HURRICAINE) 1 SPRAY MUCOUS MEM (14:25)
[2023-10-22 14:49] LABS: Glucose Point of Care 123 mg/dl (65-105)
--- NOTE | 2023-10-22 15:00 | PC.NURSE ---
Returned to room from GI Lab per moiz.
[2023-10-22] MEDS: PRAVASTATIN SODIUM 10 MG TABLET PO (15:35)
[2023-10-22] MEDS: MAGNESIUM OXIDE 400 MG TABLET PO (15:35)
[2023-10-22] MEDS: POTASSIUM CHLORIDE 10 MEQ ER TABLET PO ×2 (15:35→17:23)
[2023-10-22] MEDS: SOTALOL HCL 80 MG TABLET PO ×2 (15:36→21:02)
[2023-10-22] MEDS: METOPROLOL TARTRATE 25 MG TABLET PO ×2 (15:37→21:03)
[2023-10-22] MEDS: LEFLUNOMIDE 20 MG TABLET PO (15:37)
[2023-10-22 16:45] LABS: Glucose Point of Care 141 mg/dl (65-105)
--- NOTE | 2023-10-22 17:51 | PM.IMPN ---
Progress Note: A&P Assessment and Plan (1) Chronic respiratory failure with hypoxia, on home oxygen therapy: Code(s): J96.11 - Chronic respiratory failure with hypoxia; Z99.81 - Dependence on supplemental oxygen Status: Acute (2) Type 2 diabetes mellitus: Code(s): E11.9 - Type 2 diabetes mellitus without complications Status: Acute (3) Acute on chronic anemia: Code(s): D64.9 - Anemia, unspecified Status: Acute (4) Rectal bleeding: Code(s): K62.5 - Hemorrhage of anus and rectum Status: Acute (5) Acute GI bleeding: Code(s): K92.2 - Gastrointestinal hemorrhage, unspecified Status: Acute (6) Paroxysmal atrial fibrillation: Code(s): I48.0 - Paroxysmal atrial fibrillation Status: Chronic (7) Chronic anticoagulation: Code(s): 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 Status: Chronic (8) Hypokalemia: Code(s): E87.6 - Hypokalemia Status: Acute (9) Chronic hyponatremia: Code(s): E87.1 - Hypo-osmolality and hyponatremia Status: Acute Plan This is a 73-year-old female with history of microscopic colitis, gastritis, chronic diarrhea, paroxysmal atrial fibrillation on chronic anticoagulation, coronary artery disease, hypertension, chronic obstructive pulmonary disease, chronic respiratory failure on 2 L nasal cannula, rheumatoid arthritis, polymyalgia rheumatica, and other comorbidities who presented to the emergency department from home for evaluation of blood in stools. The patient provides the following history. She initially noticed that her stools were dark this past Thursday and she reports having multiple, loose dark stools a day since that time. She had 1 episode where the stools were more bright red in color and admixed with clots. The last day or so prior to admission she had been feeling lightheaded and dizzy with position changes and she is also endorses nausea and 1 episode of nonbloody and nonbilious emesis. She continues to take her Xarelto with her last dose being sometime the evening prior to admission. She denies epigastric, abdominal, and rectal pain. No bloating or belching. She denies chest pain and shortness of breath. No NSAID use. She has not been on steroids recently. She drinks alcohol very rarely. In the ED: She was afebrile on arrival with stable vital signs. Labs were significant for hemoglobin of 8.5 (3 g lower compared to labs taken in May 2023), sodium 130, chloride 96, BUN 21, glucose 203. Stool was Hemoccult positive on ED provider exam. She was given 80 mg IV pantoprazole and is being admitted in this setting for close monitoring and GI consultation. Hemoglobin 6 0.5-7.8 status post 1 unit PRBC. Patient is status post EGD in 10/22/2023 which demonstrated nonerosive reflux disease. Protonix switch back to her home dose 40 mg p.o. q.day. Xarelto will have to have discussion weigh risks versus benefits tomorrow. Consideration is going on a half dose of apixaban. She certainly will have bleeding risks ongoing. She is going to be scheduled for a capsule endoscopy which was already in discussion prior to admission. She does not appear to be on aspirin in light of her CAD status and this is probably due to previous anemia. This will need to be considered during the risk versus benefit discussion of anticoagulants. Chronic hyponatremia stable. Replacing potassium. Trend potassium and magnesium in a.m.. Repeat hemoglobin is 7:[address] the due to hyperkalemia history of AFib and hypovolemia and acute bleed. FEN: Saline lock IV. Cardiac diabetic diet. GI prophylaxis: Protonix 40 mg p.o. q.day DVT prophylaxis: SCDs only. Hold Xarelto. Lines: Peripheral IV Code Status: Full code Dispo: Stable on med surg with tele. Subjective Date/time seen: 10/22/23 17:51 Interval history: No acute overnight events. Patient feels better now that she has eaten. Had 1 dark stool since admi
[2023-10-22 19:21] LABS: Hematocrit 24.3 % (37.0-47.0); Hemoglobin 7.5 g/dL (12.0-15.0)
[2023-10-22 20:41] LABS: Glucose Point of Care 210 mg/dl (65-105)
[2023-10-22] MEDS: PRAMIPEXOLE 0.5 MG TABLET PO (21:02)
[2023-10-22] MEDS: INSULIN ASPART (*BKC) 100 UNITS/ML SUB-Q (21:03)
[2023-10-23] VITALS (20 sets, daily range): BP systolic 108–139; BP diastolic 47–79; PULSE 84–99; RESP 12–22; TEMP 35.7–36.8; O2SAT 94–100
[2023-10-23 06:18] LABS: Mean Corpuscular HGB Conc 30.9 g/dl (32-36); Mean Corpuscular Hemoglobin 28.7 pg (26-34); Mean Corpuscular Volume 92.8 fl (80-100); Mean Platelet Volume 11.2 fl (7.4-10.4); Platelet Count Result 182 k/mm3 (150-375); Red Blood Count 2.37 M/mm3 (4.2-5.4); Red Cell Distribution Width 17.3 % (11.5-14.5); White Blood Count 5.6 K/mm3 (4.5-10.0)
[2023-10-23 06:28] LABS: Anion Gap 2 mmol/L (8-16); Blood Urea Nitrogen 14 mg/dL (7-17); Calcium 8.1 mg/dL (8.4-10.2); Carbon Dioxide 29 mmol/L (22-30); Chloride 100 mmol/L (98-107); Estimated CRCL calculation 62 ml/min; Estimated Glomerular Filt Rate > 60; Glucose 166 mg/dL (65-110); Magnesium 1.9 mg/dL (1.6-2.3); Potassium 3.4 mmol/L (3.4-5.0); Sodium 131 mmol/L (137-145)
[2023-10-23 06:37] LABS: Hemoglobin 6.8 g/dL (12.0-15.0)
--- NOTE | 2023-10-23 07:16 | WPDANESPN ---
Anes - Prog Note Post-Op Date/Time: 10/23/23 07:16 Cardiovascular status: normal Respiratory status: normal (NC O2) Airway patency: baseline Mental status: baseline Post-Op hydration status: normal Vital Signs: Last Vital Signs Temp 97.5 F L 10/23/23 04:00 Pulse 89 10/23/23 04:00 Resp 20 10/23/23 04:00 BP 139/55 L 10/23/23 04:00 Pulse Ox 100 10/23/23 04:00 O2 Del Method Nasal Cannula 10/22/23 20:00 O2 Flow Rate 2 10/22/23 20:00 FiO2 28 10/22/23 08:34 Pain Score (VAS): 0 I/O: Intake & Output 10/22/23 10/22/23 10/23/23 15:59 23:59 07:59 Intake Total 175 1340 300 Balance 175 1340 300 Laboratory Tests 10/23/23 05:44 10/23/23 05:44 10/22/23 10/22/23 10/22/23 07:47 07:54 11:46 WBC RBC Hgb 7.8 L Hct 24.8 L MCV MCH MCHC RDW Plt Count MPV Sodium Potassium Chloride Carbon Dioxide Anion Gap BUN Creatinine Estim Creat Clear Calc Estimated GFR Glucose POC Capillary Glucose 183 H 150 H Calcium Magnesium 10/22/23 10/22/23 10/22/23 13:21 14:47 16:43 WBC RBC Hgb Hct MCV MCH MCHC RDW Plt Count MPV Sodium Potassium Chloride Carbon Dioxide Anion Gap BUN Creatinine Estim Creat Clear Calc Estimated GFR Glucose POC Capillary Glucose 130 H 123 H 141 H Calcium Magnesium 10/22/23 10/22/23 10/23/23 19:04 19:52 05:44 WBC 5.6 RBC 2.37 L Hgb 7.5 L 6.8 L* Hct 24.3 L 22.0 L MCV 92.8 MCH 28.7 MCHC 30.9 L RDW 17.3 H Plt Count 182 MPV 11.2 H Sodium 131 L Potassium 3.4 Chloride 100 Carbon Dioxide 29 Anion Gap 2 L BUN 14 Creatinine 0.70 Estim Creat Clear Calc 62 Estimated GFR > 60 Glucose 166 H POC Capillary Glucose 210 H Calcium 8.1 L Magnesium 1.9 Post-procedural complaints: none Patient Feedback: Patient satisfied with anesthetic care.
[2023-10-23 07:45] LABS: Glucose Point of Care 166 mg/dl (65-105)
[2023-10-23] MEDS: METOPROLOL TARTRATE 25 MG TABLET PO ×2 (10:21→20:53)
[2023-10-23] MEDS: SOTALOL HCL 80 MG TABLET PO ×2 (10:23→20:53)
[2023-10-23] MEDS: PRAVASTATIN SODIUM 10 MG TABLET PO (10:23)
[2023-10-23] MEDS: MAGNESIUM OXIDE 400 MG TABLET PO ×2 (10:24→16:45)
[2023-10-23] MEDS: SPIRONOLACTONE 25 MG TABLET PO (10:24)
[2023-10-23] MEDS: LEFLUNOMIDE 20 MG TABLET PO (10:24)
[2023-10-23] MEDS: POTASSIUM CHLORIDE 10 MEQ ER TABLET PO ×2 (10:24→16:45)
[2023-10-23] MEDS: PANTOPRAZOLE 40 MG TABLET PO (10:24)
[2023-10-23 11:17] LABS: Glucose Point of Care 211 mg/dl (65-105)
[2023-10-23] MEDS: INSULIN ASPART (*BKC) 100 UNITS/ML SUB-Q (12:59)
[2023-10-23] MEDS: SODIUM CHLORIDE 0.9% IV 250 ML 30 ML IV CONT (13:29)
--- NOTE | 2023-10-23 16:19 | WPDGIPROGNO ---
Progress Note: A&P Assessment and Plan (1) Acute GI bleeding: Code(s): K92.2 - Gastrointestinal hemorrhage, unspecified Status: Acute Assessment and Plan: The black tarry stools began 5 days ago. She has had no abdominal pain she was briefly nauseated this morning but has had no emesis. He denies any use of NSAIDs In the last 24 hours she has had stools are not black but dark red. She has no abdominal pain or other symptoms with this her Xarelto has been held since admission. I discussed with her the fact that she has had this same issue 2 years ago when she was bleeding on warfarin. At that time EGD and colonoscopy were unremarkable. She does not even have diverticulosis. We do know that she has microscopic colitis but that would not cause bleeding. I told her that I think she would benefit from capsule endoscopy which needs to be done as an outpatient and our office will arrange for that. (2) Anemia: Qualifiers: Anemia type: unspecified type Qualified Code(s): D64.9 - Anemia, unspecified Code(s): D64.9 - Anemia, unspecified Status: Acute Assessment and Plan: she is chronically anemic. Her hemoglobin last fall was 11.9 After her hemoglobin yesterday was 7.5, she has had 3 bloody stools and today her hemoglobin is 6.8. She is receiving 1 unit of blood at the present time. (3) Paroxysmal atrial fibrillation: Code(s): I48.0 - Paroxysmal atrial fibrillation Status: Chronic Assessment and Plan: she had been in atrial fibrillation for several years and originally taking warfarin but now Xarelto for the past year. She also has a history of having had coronary artery bypass graft and stenting. (4) Chronic diarrhea: Code(s): K52.9 - Noninfective gastroenteritis and colitis, unspecified Status: Acute Assessment and Plan: She had been found to have microscopic colitis. She was taking budesonide but I had ordered for her about 2 years ago she cannot remember how long she took it why she stopped it but now she is taking Lomotil and feels that it manages her symptoms adequately. Plan Will schedule for EGD tomorrow morning. Her Xarelto will be held until after endoscopy and We are certain that she is not having further bleeding. Protonix has been started. When the hospitalist became aware of her bleeding she was switched today to a clear liquid diet. She was quite disappointed that her lunch was held up at the door. Will start a full liquid diet tonight Her mucous membranes are moist air blood pressure is good. I told her that I do not think she will need to have those 2 L of saline given this evening. Subjective Date/time seen: 10/23/23 16:19 she has started passing dark red blood per rectum. She had a bloody stool this morning and blood counts were noted to have dropped from 7.5 g to 6.8. She states that she had 2 similar bowel movements yesterday pointing to the bag of red blood cells that is hanging now stating it was about that same color. She has had no abdominal pain or nausea or vomiting. She is concerned about the fact that there to 1 L bags saline hanging next to her packed red blood cells and she was told that that is going to be infused tonight. She was up 3 times to go the bathroom last night is afraid should be up all night tonight if she is given all that saline. Exam Const: General: cooperative and healthy appearing Orientation/consciousness: patient oriented x3 HENMT: Head: normal to inspection Ears: hearing grossly normal bilaterally Mouth: Yes Normal oral and palatal mucosa present and Yes moist mucous membranes Eyes: General: appearance normal, both eyes and all related structures Neck: Neck: normal visual inspection Chest: Chest palpation & inspection: normal inspection of the chest Resp: Effort & Inspection: normal respiratory effort Auscultation: clear to auscultation bilaterally Cardio: Rate
[2023-10-23 16:52] LABS: Glucose Point of Care 198 mg/dl (65-105)
[2023-10-23] MEDS: SODIUM CHLORIDE 0.9% IV 1,000 ML 50 ML IV CONT (18:40)
--- NOTE | 2023-10-23 20:08 | PC.NURSE ---
On 10/23/23, the INSIDE [employer]OWER, Cordelia, provided care and [facility] on this patient. I have reviewed the [employer]'s documentation and agree with the findings.
[2023-10-23 20:19] LABS: Hematocrit 27.1 % (37.0-47.0); Hemoglobin 8.7 g/dL (12.0-15.0)
[2023-10-23 20:38] LABS: Glucose Point of Care 159 mg/dl (65-105)
[2023-10-23] MEDS: PRAMIPEXOLE 0.5 MG TABLET PO (20:53)
[2023-10-24] VITALS (12 sets, daily range): BP systolic 115–139; BP diastolic 53–66; PULSE 55–102; RESP 13–34; TEMP 36.4–37.4; O2SAT 93–100
[2023-10-24 06:13] LABS: Hematocrit 27.3 % (37.0-47.0); Hemoglobin 8.5 g/dL (12.0-15.0); Mean Corpuscular HGB Conc 31.1 g/dl (32-36); Mean Corpuscular Hemoglobin 28.5 pg (26-34); Mean Corpuscular Volume 91.6 fl (80-100); Mean Platelet Volume 10.6 fl (7.4-10.4); Platelet Count Result 193 k/mm3 (150-375); Red Blood Count 2.98 M/mm3 (4.2-5.4); Red Cell Distribution Width 17.7 % (11.5-14.5); White Blood Count 6.2 K/mm3 (4.5-10.0)
[2023-10-24] MEDS: ALBUTEROL SULFATE (*SP) AEROSOL 1 PUFF INHALATION (06:18)
[2023-10-24 06:22] LABS: Anion Gap 0 mmol/L (8-16); Blood Urea Nitrogen 6 mg/dL (7-17); Calcium 8.3 mg/dL (8.4-10.2); Carbon Dioxide 31 mmol/L (22-30); Chloride 102 mmol/L (98-107); Estimated CRCL calculation 73 ml/min; Estimated Glomerular Filt Rate > 60; Glucose 148 mg/dL (65-110); Magnesium 2.1 mg/dL (1.6-2.3); Potassium 3.7 mmol/L (3.4-5.0); Sodium 133 mmol/L (137-145)
[2023-10-24 07:50] LABS: Glucose Point of Care 152 mg/dl (65-105)
[2023-10-24] MEDS: POTASSIUM CHLORIDE 10 MEQ ER TABLET PO ×2 (09:11→17:40)
[2023-10-24] MEDS: MAGNESIUM OXIDE 400 MG TABLET PO ×2 (09:11→17:40)
[2023-10-24] MEDS: SOTALOL HCL 80 MG TABLET PO ×2 (09:11→20:49)
[2023-10-24] MEDS: METOPROLOL TARTRATE 25 MG TABLET PO ×2 (09:11→20:49)
[2023-10-24] MEDS: LEFLUNOMIDE 20 MG TABLET PO (09:11)
[2023-10-24] MEDS: PRAVASTATIN SODIUM 10 MG TABLET PO (09:11)
[2023-10-24] MEDS: PANTOPRAZOLE 40 MG TABLET PO (09:11)
[2023-10-24] MEDS: SPIRONOLACTONE 25 MG TABLET PO (09:11)
--- NOTE | 2023-10-24 11:27 | ECG_ITS ---
Measurements Intervals [place] Rate: 86 P: 41 SC: 224 QRS: -17 QRSD: 84 T: 15 QT: 381 QTc: 457 Interpretive Statements SINUS RHYTHM WITH FIRST DEGREE AV BLOCK LOW QRS VOLTAGE IN PRECORDIAL LEADS [QRS DEFLECTION < 1.0 mV IN CHEST LEADS] POSSIBLE RIGHT VENTRICULAR CONDUCTION DELAY [RSR (QR) IN V1/V2] MINIMAL ST DEPRESSION [0.025+ mV ST DEPRESSION] BORDERLINE ECG COMPARED TO ECG 05/08/2023 09:50:42 SINUS RHYTHM NOW PRESENT FIRST DEGREE AV BLOCK NOW PRESENT ST (T WAVE) DEVIATION NOW PRESENT Electronically Signed On 10-24-2023 14:48:07 GAMING DIRECTOR by Luciano Gibson M.D.
[2023-10-24 11:36] LABS: Glucose Point of Care 188 mg/dl (65-105)
--- NOTE | 2023-10-24 13:04 | PM.IMPN ---
Progress Note: A&P Assessment and Plan (1) Chronic respiratory failure with hypoxia, on home oxygen therapy: Code(s): J96.11 - Chronic respiratory failure with hypoxia; Z99.81 - Dependence on supplemental oxygen Status: Acute (2) Type 2 diabetes mellitus: Code(s): E11.9 - Type 2 diabetes mellitus without complications Status: Acute (3) Acute on chronic anemia: Code(s): D64.9 - Anemia, unspecified Status: Acute (4) Rectal bleeding: Code(s): K62.5 - Hemorrhage of anus and rectum Status: Acute (5) Acute GI bleeding: Code(s): K92.2 - Gastrointestinal hemorrhage, unspecified Status: Acute (6) Paroxysmal atrial fibrillation: Code(s): I48.0 - Paroxysmal atrial fibrillation Status: Chronic (7) Chronic anticoagulation: Code(s): 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.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 Status: Chronic (8) Hypokalemia: Code(s): E87.6 - Hypokalemia Status: Acute (9) Chronic hyponatremia: Code(s): E87.1 - Hypo-osmolality and hyponatremia Status: Acute Plan This is a 73-year-old female with history of microscopic colitis, gastritis, chronic diarrhea, paroxysmal atrial fibrillation on chronic anticoagulation, coronary artery disease, hypertension, chronic obstructive pulmonary disease, chronic respiratory failure on 2 L nasal cannula, rheumatoid arthritis, polymyalgia rheumatica, and other comorbidities who presented to the emergency department from home for evaluation of blood in stools. The patient provides the following history. She initially noticed that her stools were dark this past Thursday and she reports having multiple, loose dark stools a day since that time. She had 1 episode where the stools were more bright red in color and admixed with clots. The last day or so prior to admission she had been feeling lightheaded and dizzy with position changes and she is also endorses nausea and 1 episode of nonbloody and nonbilious emesis. She continues to take her Xarelto with her last dose being sometime the evening prior to admission. She denies epigastric, abdominal, and rectal pain. No bloating or belching. She denies chest pain and shortness of breath. No NSAID use. She has not been on steroids recently. She drinks alcohol very rarely. In the ED: She was afebrile on arrival with stable vital signs. Labs were significant for hemoglobin of 8.5 (3 g lower compared to labs taken in May 2023), sodium 130, chloride 96, BUN 21, glucose 203. Stool was Hemoccult positive on ED provider exam. She was given 80 mg IV pantoprazole and is being admitted in this setting for close monitoring and GI consultation. Hemoglobin 6 0.5-7.8 status post 1 unit PRBC. Patient is status post EGD in 10/22/2023 which demonstrated nonerosive reflux disease. Protonix switch back to her home dose 40 mg p.o. q.day. Xarelto will have to have discussion weigh risks versus benefits tomorrow. Consideration is going on a half dose of apixaban. She certainly will have bleeding risks ongoing. She is going to be scheduled for a capsule endoscopy which was already in discussion prior to admission. She does not appear to be on aspirin in light of her CAD status and this is probably due to previous anemia. This will need to be considered during the risk versus benefit discussion of anticoagulants. Chronic hyponatremia stable. Replacing potassium. Trend potassium and magnesium in a.m.. Repeat hemoglobin is 7:[address] the due to hyperkalemia history of AFib and hypovolemia and acute bleed. October 23, 2023 update Bright red blood per rectum overnight. She has been placed on clear liquid diet. She takes Lasix at home for leg swelling but we will discontinue that for now. Start maintenance fluids at normal saline 100 cc/hour and D5W at 20 cc/hour. It appears she will need a colonoscopy as her hemoglobin dropped again to 6.8. 1 unit PRBC has been ordered and we will trend
[2023-10-24] MEDS: ONDANSETRON HCL ODT 4 MG TABLET PO (15:51)
[2023-10-24 16:29] LABS: Glucose Point of Care 177 mg/dl (65-105)
[2023-10-24 19:11] LABS: Hematocrit 28.3 % (37.0-47.0); Hemoglobin 8.9 g/dL (12.0-15.0)
[2023-10-24 20:29] LABS: Glucose Point of Care 173 mg/dl (65-105)
[2023-10-24] MEDS: PRAMIPEXOLE 0.5 MG TABLET PO (20:49)
[2023-10-25] VITALS (12 sets, daily range): BP systolic 115–146; BP diastolic 45–71; PULSE 78–102; RESP 13–20; TEMP 36.1–37.1; O2SAT 90–100
[2023-10-25 06:47] LABS: Basophils Absolute Auto 0.1 K/mm3 (0.0-0.1); Basophils Percent Auto 0.8 % (0.2-1.2); Eosinophils Absolute Auto 0.2 K/mm3 (0-0.3); Eosinophils Percent Auto 2.4 % (0-4.4); Hematocrit 30.6 % (37.0-47.0); Hemoglobin 9.1 g/dL (12.0-15.0); Immature Granulocyte Absolute 0.08 K/mm3 (0.00-0.031); Immature Granulocyte Percent A 1.1 % (0-0.5); Lymphocytes Absolute Auto 1.51 K/mm3 (0.9-3.2); Mean Corpuscular HGB Conc 29.7 g/dl (32-36); Mean Corpuscular Hemoglobin 28.3 pg (26-34); Mean Corpuscular Volume 95.3 fl (80-100); Mean Platelet Volume 10.8 fl (7.4-10.4); Monocytes Absolute Auto 0.9 K/mm3 (0.1-0.6); Monocytes Percent Auto 11.3 % (2.6-8.5); Neutrophils Absolute Auto 4.9 K/mm3 (1.3-6.7); Neutrophils Percent Auto 64.4 % (45.5-73.1); Nucleated Red Blood Cells Absolute Auto 0.1 K/mm3 (0.0-0.012); Nucleated Red Blood Cells Perc 0.8 % (0.0-0.2); Platelet Count Result 227 k/mm3 (150-375); Red Blood Count 3.21 M/mm3 (4.2-5.4); Red Cell Distribution Width 18.8 % (11.5-14.5); White Blood Count 7.6 K/mm3 (4.5-10.0)
[2023-10-25 06:59] LABS: Anion Gap -1 mmol/L (8-16); Blood Urea Nitrogen 7 mg/dL (7-17); Calcium 8.5 mg/dL (8.4-10.2); Carbon Dioxide 33 mmol/L (22-30); Chloride 102 mmol/L (98-107); Estimated CRCL calculation 64 ml/min; Estimated Glomerular Filt Rate > 60; Glucose 165 mg/dL (65-110); Magnesium 2.1 mg/dL (1.6-2.3); Potassium 4.1 mmol/L (3.4-5.0); Sodium 134 mmol/L (137-145)
[2023-10-25 07:34] LABS: Glucose Point of Care 158 mg/dl (65-105)
[2023-10-25] MEDS: MAGNESIUM OXIDE 400 MG TABLET PO ×2 (08:03→16:28)
[2023-10-25] MEDS: POTASSIUM CHLORIDE 10 MEQ ER TABLET PO ×2 (08:03→16:28)
[2023-10-25] MEDS: PRAVASTATIN SODIUM 10 MG TABLET PO (08:04)
[2023-10-25] MEDS: METOPROLOL TARTRATE 25 MG TABLET PO ×2 (08:04→21:52)
[2023-10-25] MEDS: LEFLUNOMIDE 20 MG TABLET PO (08:04)
[2023-10-25] MEDS: SOTALOL HCL 80 MG TABLET PO ×2 (08:04→21:54)
[2023-10-25] MEDS: PANTOPRAZOLE 40 MG TABLET PO (08:04)
[2023-10-25 10:54] LABS: Platelet Estimate Adequate (Adequate)
[2023-10-25 10:55] LABS: Anisocytosis 2+ (NORMAL); Hypochromasia 1+ (NORMAL); Macrocytosis 1+ (NORMAL); Schistocytes None Seen (NORMAL)
[2023-10-25 11:38] LABS: Glucose Point of Care 164 mg/dl (65-105)
[2023-10-25 15:30] LABS: Glucose Point of Care 168 mg/dl (65-105)
--- NOTE | 2023-10-25 15:54 | P.PNIM_ITS ---
Progress Note: A&P Assessment and Plan (1) Chronic respiratory failure with hypoxia, on home oxygen therapy: Code(s): J96.11 - Chronic respiratory failure with hypoxia; Z99.81 - Dependence on supplemental oxygen Status: Acute (2) Type 2 diabetes mellitus: Code(s): E11.9 - Type 2 diabetes mellitus without complications Status: Acute (3) Acute on chronic anemia: Code(s): D64.9 - Anemia, unspecified Status: Acute (4) Rectal bleeding: Code(s): K62.5 - Hemorrhage of anus and rectum Status: Acute (5) Acute GI bleeding: Code(s): K92.2 - Gastrointestinal hemorrhage, unspecified Status: Acute (6) Paroxysmal atrial fibrillation: Code(s): I48.0 - Paroxysmal atrial fibrillation Status: Chronic (7) Chronic anticoagulation: 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(s): 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 Status: Chronic (8) Hypokalemia: Code(s): E87.6 - Hypokalemia Status: Acute (9) Chronic hyponatremia: Code(s): E87.1 - Hypo-osmolality and hyponatremia Status: Acute Plan This is a 73-year-old female with history of microscopic colitis, gastritis, chronic diarrhea, paroxysmal atrial fibrillation on chronic anticoagulation, coronary artery disease, hypertension, chronic obstructive pulmonary disease, chronic respiratory failure on 2 L nasal cannula, rheumatoid arthritis, polymyalgia rheumatica, and other comorbidities who presented to the emergency department from home for evaluation of blood in stools. The patient provides the following history. She initially noticed that her stools were dark this past Thursday and she reports having multiple, loose dark stools a day since that time. She had 1 episode where the stools were more bright red in color and admixed with clots. The last day or so prior to admission she had been feeling lightheaded and dizzy with position changes and she is also endorses nausea and 1 episode of nonbloody and nonbilious emesis. She continues to take her Xarelto with her last dose being sometime the evening prior to admission. She denies epigastric, abdominal, and rectal pain. No bloating or belching. She denies chest pain and shortness of breath. No NSAID use. She has not been on steroids recently. She drinks alcohol very rarely. In the ED: She was afebrile on arrival with stable vital signs. Labs were significant for hemoglobin of 8.5 (3 g lower compared to labs taken in May 2023), sodium 130, chloride 96, BUN 21, glucose 203. Stool was Hemoccult positive on ED provider exam. She was given 80 mg IV pantoprazole and is being admitted in this setting for close monitoring and GI consultation. Hemoglobin 6 0.5-7.8 status post 1 unit PRBC. Patient is status post EGD in 10/22/2023 which demonstrated nonerosive reflux disease. Protonix switch back to her home dose 40 mg p.o. q.day. Xarelto will have to have discussion weigh risks versus benefits tomorrow. Consideration is going on a half dose of apixaban. She certainly will have bleeding risks ongoing. She is going to be scheduled for a capsule endoscopy which was already in discussion prior to admission. She does not appear to be on aspirin in light of her CAD status and this is probably due to previous anemia. This will need to be considered during the risk versus benefit discussion of anticoagulants. Chronic hyponatremia stable. Replacing potassium. Trend potassium and magnesium in a.m.. Repeat hemoglobin is 7:[address] the due to hyperkalemia history of AFib and hypovolemia and acute bleed. October 23, 2023 update Bright red blood per rectum overnight. She has been placed on
[2023-10-25 20:52] LABS: Glucose Point of Care 163 mg/dl (65-105)
[2023-10-25] MEDS: PRAMIPEXOLE 0.5 MG TABLET PO (21:55)
[2023-10-26] VITALS (7 sets, daily range): BP systolic 135–148; BP diastolic 55–65; PULSE 72–107; RESP 18–22; TEMP 36.6; O2SAT 99–100
[2023-10-26] MEDS: ALBUTEROL SULFATE (*SP) AEROSOL 1 PUFF INHALATION (02:50)
[2023-10-26 06:25] LABS: Hemoglobin 8.5 g/dL (12.0-15.0)
[2023-10-26 07:58] LABS: Glucose Point of Care 174 mg/dl (65-105)
[2023-10-26] MEDS: PRAVASTATIN SODIUM 10 MG TABLET PO (10:02)
[2023-10-26] MEDS: SPIRONOLACTONE 25 MG TABLET PO (10:02)
[2023-10-26] MEDS: SOTALOL HCL 80 MG TABLET PO (10:02)
[2023-10-26] MEDS: LEFLUNOMIDE 20 MG TABLET PO (10:02)
[2023-10-26] MEDS: PANTOPRAZOLE 40 MG TABLET PO (10:02)
[2023-10-26] MEDS: MAGNESIUM OXIDE 400 MG TABLET PO ×2 (10:02→18:00)
[2023-10-26] MEDS: POTASSIUM CHLORIDE 10 MEQ ER TABLET PO ×2 (10:02→18:00)
[2023-10-26] MEDS: METOPROLOL TARTRATE 25 MG TABLET PO (10:02)
[2023-10-26 11:29] LABS: Glucose Point of Care 182 mg/dl (65-105)
--- NOTE | 2023-10-26 11:41 | PCNFU ---
Nutrition Follow-Up Complete: Inadequate energy intake related to NPO status as evidenced by current diet orders Goal:Diet order PO intake greater than 50% of meals Pt is meeting goal. Pt current nutrition is Diabetic, Glucerna BID. Nutrition recommendation: continue with current plan of care Last recorded weight is 88.2 kg. Bowel Motility: +BM 10/25 Labs Reviewed: Hgb:8.5, HCT:29, Glu:174 Meds Noted: lasix, novolog Skin: no skin issues noted Additional Notes: Pt diet advanced to diabetic, glucerna shakes BID ordered. Pt intake is 75-100% at this time. Encourage po intake. Monitor diet orders, intake, wt, labs. Follow up in 7 days.
[2023-10-26 16:32] LABS: Glucose Point of Care 151 mg/dl (65-105)
--- NOTE | 2023-10-26 17:52 | PC.NURSE ---
This nurse called and spoke with Dr. Selby regarding patient's discharge. Patient is cleared from a GI standpoint to discharge home and will need to follow up with GI outpatient in [address] Selby and blood thinners on hold until after endoscopy is performed outpatient.
--- NOTE | 2023-10-26 18:18 | PM.DS ---
DS: Admitting Diagnosis Discharge Date October 26, 2023 Admitting Diagnosis Blood in stool DS: Discharge Diagnosis Discharge Diagnosis (1) Chronic respiratory failure with hypoxia, on home oxygen therapy: Code(s): J96.11 - Chronic respiratory failure with hypoxia; Z99.81 - Dependence on supplemental oxygen Status: Acute (2) Type 2 diabetes mellitus: Code(s): E11.9 - Type 2 diabetes mellitus without complications Status: Acute (3) Acute on chronic anemia: Code(s): D64.9 - Anemia, unspecified Status: Acute (4) Rectal bleeding: Code(s): K62.5 - Hemorrhage of anus and rectum Status: Acute (5) Acute GI bleeding: Code(s): K92.2 - Gastrointestinal hemorrhage, unspecified Status: Acute (6) Anemia: Qualifiers: Anemia type: unspecified type Qualified Code(s): D64.9 - Anemia, unspecified Code(s): D64.9 - Anemia, unspecified Status: Acute (7) Paroxysmal atrial fibrillation: Code(s): I48.0 - Paroxysmal atrial fibrillation Status: Chronic DS: Summary Hospital Course Hospital Course: This is a 73-year-old female with history of microscopic colitis, gastritis, chronic diarrhea, paroxysmal atrial fibrillation on chronic anticoagulation, coronary artery disease, hypertension, COPD, chronic respiratory failure on 2 L nasal cannula, rheumatoid arthritis, polymyalgia rheumatica and other comorbidities who presented to [facility] for evaluation of blood in her stools. She also admitted to feeling lightheaded and dizzy with position changes and endorsed nausea and 1 episode of nonbloody and nonbilious emesis. Patient received 1 unit PRBC and hemoglobin increased from 6.5-7.8. The bleeding appeared to resolve however after 1 day she had 2 more bloody bowel movements and required another unit. Thereafter her hemoglobin stayed stable in the 8's. On 10/26/2023 she is discharged home in stable condition now with brown bowel movements and no more reported blood per rectum. An EGD in 10/23/2023 only demonstrated nonerosive reflux disease. Decision made with patient and Gastroenterology to restart her anticoagulation 1 day post discharge and have close follow-up within a few weeks for further evaluation of anemia and GI bleed. The patient was apprehensive to return home and although she remains stable the risks versus benefits and adverse effects of blood thinner, GI bleed, atrial fibrillation and coronary disease were discussed. She understood and accepted the risk of the above plan. She also knows to follow up closely with PCP within a week. The patient was full code during her admission Time Spent with Patient Time attestation: Total time spent providing and/or coordinating discharge services: Exam Const: General: comfortable and no acute distress Other: Pale skin tone. Conjunctival pallor. Delayed cap refill Eyes: Pupils: Equal, round and reactive pupils present Neck: Neck: supple Resp: Effort & Inspection: normal respiratory effort Auscultation: clear to auscultation bilaterally Cardio: Rate: regular rate Rhythm: regular rhythm GI: GI Palp: Yes Soft to palpation and No Tenderness to palpation present (GI) Extrem: General: edema (Trace) DS: Data Data Completed and Pending Labs on day of discharge: Labs from last 24 hours 10/26/23 10/26/23 10/26/23 16:25 11:10 07:40 Hgb Hct POC Capillary Glucose 151 H 182 H 174 H 10/26/23 10/25/23 05:47 20:46 Hgb 8.5 L Hct 29.0 L POC Capillary Glucose 163 H Discharge Plan Discharge Attending physician on discharge: Nicki Valadez Consulting providers: Nuvia Lackey; Andrzej Masters Discharging Clinician: Nicki Valadez Patient Disposition: Home, Self-Care Activity: may shower Diet: heart healthy and diabetic Discharge Instructions: GI feels you would benefit from a capsule endoscopy which needs to be done as an outpatient. T
== END 2023-10-26 18:45 | disposition home or self-care (01) | DRG 378 ==
LOC: ANHED 13:16 → ANH3MEDSUR 14:22
PROVIDERS: Internal Medicine; Internal Medicine Gastroenterology; Physician Assistant; Admitting Provider Family Medicine; Emergency Provider Physician Assistant; PCP Family Medicine; Visit Provider General Practice
PROC: 0DJ08ZZ Inspection of Upper Intestinal Tract, Via Natural or Artificial Opening Endoscopic (ICD-10-PCS; CPT 43235; principal; 2023-10-22 14:00)
DX: K92.2 Gastrointestinal hemorrhage, unspecified (principal); E87.1 Hypo-osmolality and hyponatremia; J96.11 Chronic respiratory failure with hypoxia; I48.0 Paroxysmal atrial fibrillation; I10 Essential (primary) hypertension; I25.10 Atherosclerotic heart disease of native coronary artery without angina pectoris; I87.2 Venous insufficiency (chronic) (peripheral); J44.9 Chronic obstructive pulmonary disease, unspecified; D50.9 Iron deficiency anemia, unspecified; E11.9 Type 2 diabetes mellitus without complications; E78.5 Hyperlipidemia, unspecified; K21.9 Gastro-esophageal reflux disease without esophagitis; K52.9 Noninfective gastroenteritis and colitis, unspecified; K86.81 Exocrine pancreatic insufficiency; M35.3 Polymyalgia rheumatica; M47.812 Spondylosis without myelopathy or radiculopathy, cervical region; Z96.653 Presence of artificial knee joint, bilateral; Z86.73 Personal history of transient ischemic attack (TIA), and cerebral infarction without residual deficits; Z79.01 Long term (current) use of anticoagulants; Z86.010 Personal history of colon polyps; Z95.1 Presence of aortocoronary bypass graft; Z95.5 Presence of coronary angioplasty implant and graft; Z99.81 Dependence on supplemental oxygen
CPT/HCPCS: 36415; 36430; 74177; 80048; 80053; 82948; 83735; 85014; 85018; 85025; 85027; 85610; 85730; 86850; 86900; 86901; 86923; 87081; 93005; 94640; 96374; 99285; A9270; C9113; G0378; J1815; J7030; J7050; J7120; P9016; Q9967

== ENCOUNTER 2023-10-30 09:22 | Outpatient (CLI) | payer OTHER, SELFPAY ==
[2023-10-30 09:49] LABS: Hematocrit 32.6 % (37.0-47.0); Hemoglobin 9.7 g/dL (12.0-15.0); Mean Corpuscular HGB Conc 29.8 g/dl (32-36); Mean Corpuscular Volume 93.9 fl (80-100); Mean Platelet Volume 10.4 fl (7.4-10.4); Platelet Count Result 268 k/mm3 (150-375); Red Blood Count 3.47 M/mm3 (4.2-5.4); Red Cell Distribution Width 17.8 % (11.5-14.5); White Blood Count 6.6 K/mm3 (4.5-10.0)
[2023-10-30 10:57] LABS: Anion Gap 2 mmol/L (8-16); Blood Urea Nitrogen 18 mg/dL (7-17); Calcium 9.5 mg/dL (8.4-10.2); Carbon Dioxide 33 mmol/L (22-30); Chloride 101 mmol/L (98-107); Estimated Glomerular Filt Rate > 60; Glucose 145 mg/dL (65-110); Potassium 4.3 mmol/L (3.4-5.0); Sodium 136 mmol/L (137-145)
== END 2023-10-30 09:23 | disposition home or self-care (01) ==
LOC: ANHLAB 09:23
PROVIDERS: PCP Family Medicine; Visit Provider Family Medicine
DX: I10 Essential (primary) hypertension (principal); D64.9 Anemia, unspecified
CPT/HCPCS: 36415; 80048; 85027

== ENCOUNTER 2023-11-05 05:36 | Day surgery (SDC) | payer OTHER, SELFPAY ==
[2023-11-02 11:46] VITALS: BMI 34.9
--- NOTE | 2023-11-03 10:05 | SUR.PREOP ---
Patient called regarding upcoming procedure. Voicemail left regarding appointment times.
[2023-11-05 06:37] VITALS: BP 144/65; PULSE 109; RESP 20; TEMP 36.8; O2SAT 97
[2023-11-05] MEDS: LACTATED RINGERS 1,000 ML 150 ML IV CONT (06:56)
[2023-11-05 06:57] LABS: Glucose Point of Care 159 mg/dl (65-105)
--- NOTE | 2023-11-05 07:29 | WPDANESEPPF ---
Anes - Initial Pre Proc Eval Procedure: Operation Date: 11/05/23 07:00 Proposed Procedures p Esophagogastroduodenoscopy With Givens Capsule Deployment - Daniele Cooley MD Date/Time: 11/05/23 07:29 Surgeon: Daniele Cooley MD Pre Op Diagnosis: anemia,Haemorrhage of anus and rectum Patient Data Age: 73 Gender: F Height: 1.55 m Weight: 83.7 kg Last Vital Signs Temp 98.3 F 11/05/23 06:37 Pulse 109 H 11/05/23 06:37 Resp 20 11/05/23 06:37 BP 144/65 H 11/05/23 06:37 Pulse Ox 97 11/05/23 06:37 O2 Del Method Nasal Cannula 11/05/23 06:37 O2 Flow Rate 2 11/05/23 06:37 Allergies Allergy/AdvReac Type Severity Reaction Status Date / Time ciprofloxacin Allergy Mild Unknown Verified 11/05/23 06:35 codeine Allergy Unknown Unknown Verified 11/05/23 06:35 levofloxacin Allergy Unknown Unknown Verified 11/05/23 06:35 lisinopril Allergy Unknown Unknown Verified 11/05/23 06:35 amoxicillin [From Augmentin] AdvReac Severe Confusion Verified 11/05/23 06:35 clavulanic acid AdvReac Severe Confusion Verified 11/05/23 06:35 [From Augmentin] tramadol AdvReac Mild Confusion Verified 11/05/23 06:35 Home Medications Medication Instructions Recorded Confirmed Type leflunomide 20 mg tablet 20 mg PO DAILY 07/04/19 11/02/23 History nitroglycerin 0.4 mg sublingual 0.4 mg sublingual Q5M PRN Chest 08/19/22 11/02/23 Rx tablet Pain #30 tabs inhalational spacing device #1 ea 09/04/22 11/02/23 Rx albuterol sulfate 90 mcg/actuation 1 inh inhalation Q4H PRN shortness 12/15/22 11/02/23 Rx aerosol inhaler (ProAir HFA) of breath or wheezing #6.7 grams pantoprazole 40 mg tablet,delayed 40 mg PO QAM #90 tabs 12/15/22 11/02/23 Rx release alirocumab 75 mg/mL subcutaneous See Rx Instructions .Route 01/08/23 11/02/23 Rx pen injector (Praluent Pen) .COMPLEX #6 mL metformin 500 mg tablet,extended 1,000 mg PO DAILY #180 tabs 03/12/23 11/02/23 Rx release 24 hr nystatin 100,000 unit/mL oral 1 ml PO QID PRN Pain 05/08/23 11/02/23 History suspension sotalol 80 mg tablet 80 mg PO BID 05/08/23 11/02/23 History diphenoxylate-atropine 2.5 1 tablet PO TID PRN Diarrhea #60 05/22/23 11/02/23 Rx mg-0.025 mg tablet (Lomotil) tabs potassium chloride 10 mEq See Rx Instructions PO BID #60 tabs 06/09/23 11/02/23 Rx tablet,extended release omega 9-rol-ebo-fish oil 100 2 cap PO BID 06/12/23 11/02/23 History mg-160 mg-1,000 mg capsule (Fish Oil) arformoterol 15 mcg/2 mL solution 2 ml inhalation DAILY #60 mL 06/17/23 11/02/23 Rx for nebulization (Brovana) magnesium oxide 400 mg (241.3 mg 400 mg PO BID #180 tabs 06/19/23 11/02/23 Rx magnesium) tablet spironolactone 25 mg tablet 25 mg PO DAILY #30 tabs 09/11/23 11/02/23 Rx furosemide 40 mg tablet 40 mg PO DAILY 10/21/23 11/02/23 History metoprolol tartrate 25 mg tablet 25 mg PO BID 10/21/23 11/02/23 History pramipexole 0.5 mg tablet 0.5 mg PO HS 10/21/23 11/02/23 History pravastatin 10 mg tablet 10 mg PO DAILY 10/21/23 11/02/23 History rivaroxaban 20 mg tablet (Xarelto) 20 mg PO DAILY 10/21/23 11/05/23 History ferrous sulfate 325 mg (65 mg 325 mg PO DAILY 11/02/23 11/02/23 History iron) tablet (iron) Laboratory Tests 11/05/23 06:46 POC Capillary Glucose 159 H mg/dl (65-105) Patient hx anesthesia problems: none Family hx anesthesia problems: none Results Review: All pre-operative results and documents have been reviewed as part of the pre-operative evaluation. [facility] Past Medical History Medical History Cervical arthritis Chronic anticoagulation Chronic diarrhea Chronic hyponatremia Chronic obstructive pulmonary disease, unspecified Chronic respiratory failure with hypoxia, on home oxygen therapy Coronary artery disease COVID-19 Dyslipidemia Essential hypertension Exocrine pancreatic insufficiency Facial trauma Gastro-esophageal reflux disease without esophag
--- NOTE | 2023-11-05 07:32 | WPDHPUPDATE1 ---
History and Physical Update Update Date/Time: 11/05/23 07:32 History and Physical has been reviewed, including an updated exam of the patient. There are NO changes in the patient's condition. Risks, benefits, and alternatives have been discussed and questions answered. Patient agrees to proceed with procedure.
[2023-11-05 07:44] VITALS: BP 155/70; PULSE 112; RESP 20; O2SAT 95
[2023-11-05 07:55] VITALS: BP 155/70; PULSE 112; RESP 20; O2SAT 93
[2023-11-05 08:05] VITALS: BP 155/70; PULSE 108; RESP 22; O2SAT 96
--- NOTE | 2023-11-05 08:09 | SUR.PHASEII ---
Pt states she lost a filling on a bottom middle lower tooth. Pt currently has the filling in her hand. Dr. Post aware and at bedside. Pt encouraged to call her dentist today.
== END 2023-11-05 08:12 | disposition home or self-care (01) ==
PROVIDERS: PCP Family Medicine; Visit Provider Internal Medicine Gastroenterology
PROC: 0DJ08ZZ Inspection of Upper Intestinal Tract, Via Natural or Artificial Opening Endoscopic (ICD-10-PCS; CPT 43235; principal; 2023-11-05 07:00)
DX: D50.9 Iron deficiency anemia, unspecified (principal); J44.9 Chronic obstructive pulmonary disease, unspecified; J96.11 Chronic respiratory failure with hypoxia; Z99.81 Dependence on supplemental oxygen; I10 Essential (primary) hypertension; K86.81 Exocrine pancreatic insufficiency; K21.9 Gastro-esophageal reflux disease without esophagitis; I48.0 Paroxysmal atrial fibrillation; M35.3 Polymyalgia rheumatica; E11.9 Type 2 diabetes mellitus without complications; I25.10 Atherosclerotic heart disease of native coronary artery without angina pectoris; Z86.73 Personal history of transient ischemic attack (TIA), and cerebral infarction without residual deficits; Z79.51 Long term (current) use of inhaled steroids; Z79.84 Long term (current) use of oral hypoglycemic drugs; Z79.01 Long term (current) use of anticoagulants; Z95.1 Presence of aortocoronary bypass graft; Z95.5 Presence of coronary angioplasty implant and graft
CPT/HCPCS: 43235; 82948; 91110; J2001; J2704; J7120

== ENCOUNTER 2023-12-01 10:20 | Outpatient (CLI) | payer OTHER, SELFPAY ==
[2023-12-01 11:39] LABS: Anion Gap 4 mmol/L (4-12); Blood Urea Nitrogen 16 mg/dL (7-17); Calcium 9.3 mg/dL (8.4-10.2); Carbon Dioxide 32 mmol/L (22-30); Chloride 99 mmol/L (98-107); Estimated Glomerular Filt Rate > 60; Glucose 155 mg/dL (65-110); Potassium 3.8 mmol/L (3.4-5.0); Sodium 135 mmol/L (137-145)
== END 2023-12-01 10:21 | disposition home or self-care (01) ==
LOC: ANHLAB 10:25
PROVIDERS: PCP Family Medicine; Visit Provider Internal Medicine Cardiovascular Disease
DX: R60.9 Edema, unspecified (principal)
CPT/HCPCS: 36415; 80048

== ENCOUNTER 2024-01-12 14:03 | Outpatient (CLI) | payer OTHER, SELFPAY ==
[2024-01-12 14:26] LABS: Hemoglobin 11.9 g/dL (12.0-15.0); Mean Corpuscular Volume 79.2 fl (80-100); Mean Platelet Volume 10.3 fl (7.4-10.4); Platelet Count Result 348 k/mm3 (150-375); Red Blood Count 5.18 M/mm3 (4.2-5.4); Red Cell Distribution Width 18.8 % (11.5-14.5); White Blood Count 10.7 K/mm3 (4.5-10.0)
[2024-01-12 14:37] LABS: Anion Gap 8 mmol/L (4-12); Blood Urea Nitrogen 22 mg/dL (7-17); Calcium 9.9 mg/dL (8.4-10.2); Carbon Dioxide 34 mmol/L (22-30); Chloride 95 mmol/L (98-107); Estimated Glomerular Filt Rate > 60; Glucose 215 mg/dL (65-110); Potassium 3.8 mmol/L (3.4-5.0); Sodium 137 mmol/L (137-145)
[2024-01-12 14:52] LABS: Iron 38 ug/dL (37-170)
[2024-01-12 15:02] LABS: Percent Iron Saturation 8 % (20-50)
[2024-01-12 15:28] LABS: Ferritin 9.84 ng/mL (11.1-264)
== END 2024-01-12 14:04 | disposition home or self-care (01) ==
PROVIDERS: PCP Family Medicine; Visit Provider Family Medicine
DX: I10 Essential (primary) hypertension (principal); D64.9 Anemia, unspecified
CPT/HCPCS: 36415; 80048; 82607; 82728; 83540; 83550; 85027

== ENCOUNTER 2024-01-14 00:33 | Day surgery (SDC) | payer OTHER, SELFPAY ==
[2024-01-06 14:27] VITALS: BMI 34.7
--- NOTE | 2024-01-07 14:30 | PC.NURSE ---
Spoke with _PATIENT____ regarding medication _XARELTO___. Pt. verbalizes understanding that the last dose of _XARELTO____ is to be taken on __01/11/2024___ and the Endoscopist will instruct them when to restart after the procedure.
[2024-01-14 08:00] VITALS: BP 151/74; PULSE 76; RESP 22; TEMP 36.3; O2SAT 90; BMI 33.9
[2024-01-14] MEDS: LACTATED RINGERS 1,000 ML 150 ML IV CONT (08:03)
[2024-01-14 08:17] LABS: Glucose Point of Care 167 mg/dl (65-105)
--- NOTE | 2024-01-14 08:18 | WPDANESEPPF ---
Anes - Initial Pre Proc Eval Procedure: Operation Date: 01/14/24 09:00 Proposed Procedures p Colonoscopy - Daniele Cooley MD Date/Time: 01/14/24 08:18 Surgeon: Daniele Cooley MD Pre Op Diagnosis: Melena, Anemia, Gastrointestinal hemorrhage Patient Data Age: 73 Gender: F Height: 1.55 m Weight: 81.4 kg Last Vital Signs Temp 97.4 F L 01/14/24 08:00 Pulse 76 01/14/24 08:00 Resp 22 H 01/14/24 08:00 BP 151/74 H 01/14/24 08:00 Pulse Ox 90 01/14/24 08:00 O2 Del Method Nasal Cannula 01/14/24 08:00 O2 Flow Rate 2 01/14/24 08:00 Allergies Allergy/AdvReac Type Severity Reaction Status Date / Time ciprofloxacin Allergy Mild Unknown Verified 01/14/24 07:57 codeine Allergy Unknown Unknown Verified 01/14/24 07:57 levofloxacin Allergy Unknown Unknown Verified 01/14/24 07:57 lisinopril Allergy Unknown Unknown Verified 01/14/24 07:57 amoxicillin [From Augmentin] AdvReac Severe Confusion Verified 01/14/24 07:57 clavulanic acid AdvReac Severe Confusion Verified 01/14/24 07:57 [From Augmentin] tramadol AdvReac Mild Confusion Verified 01/14/24 07:57 Home Medications Medication Instructions Recorded Confirmed Type leflunomide 20 mg tablet 20 mg PO DAILY 07/04/19 01/06/24 History nitroglycerin 0.4 mg sublingual 0.4 mg sublingual Q5M PRN Chest 08/19/22 01/06/24 Rx tablet Pain #30 tabs inhalational spacing device #1 ea 09/04/22 12/30/23 Rx albuterol sulfate 90 mcg/actuation 1 inh inhalation Q4H PRN shortness 12/15/22 01/06/24 Rx aerosol inhaler (ProAir HFA) of breath or wheezing #6.7 grams pantoprazole 40 mg tablet,delayed 40 mg PO QAM #90 tabs 12/15/22 01/06/24 Rx release alirocumab 75 mg/mL subcutaneous See Rx Instructions .Route 01/08/23 01/06/24 Rx pen injector (Praluent Pen) .COMPLEX #6 mL metformin 500 mg tablet,extended 1,000 mg PO DAILY #180 tabs 03/12/23 01/06/24 Rx release 24 hr nystatin 100,000 unit/mL oral 1 ml PO QID PRN Pain 05/08/23 01/06/24 History suspension sotalol 80 mg tablet 80 mg PO BID 05/08/23 01/14/24 History diphenoxylate-atropine 2.5 1 tablet PO TID PRN Diarrhea #60 05/22/23 01/06/24 Rx mg-0.025 mg tablet (Lomotil) tabs omega 2-fwo-niv-fish oil 100 2 cap PO BID 06/12/23 01/06/24 History mg-160 mg-1,000 mg capsule (Fish Oil) arformoterol 15 mcg/2 mL solution 2 ml inhalation DAILY #60 mL 06/17/23 01/06/24 Rx for nebulization (Brovana) spironolactone 25 mg tablet 25 mg PO DAILY #30 tabs 09/11/23 01/06/24 Rx furosemide 40 mg tablet 40 mg PO DAILY 10/21/23 01/06/24 History metoprolol tartrate 25 mg tablet 25 mg PO BID 10/21/23 01/14/24 History pravastatin 10 mg tablet 10 mg PO DAILY 10/21/23 01/06/24 History ferrous sulfate 325 mg (65 mg 325 mg PO DAILY 11/02/23 01/06/24 History iron) tablet (iron) rivaroxaban 20 mg tablet (Xarelto) See Rx Instructions .Route 12/23/23 01/06/24 Rx .COMPLEX #30 tabs pramipexole 0.5 mg tablet 0.5 mg PO HS #90 tabs 12/26/23 01/06/24 Rx budesonide 3 mg See Rx Instructions PO DAILY #180 12/30/23 01/06/24 Rx capsule,delayed,extended release ea Laboratory Tests 01/14/24 08:14 POC Capillary Glucose 167 H mg/dl (65-105) Patient hx anesthesia problems: none Family hx anesthesia problems: none Results Review: All pre-operative results and documents have been reviewed as part of the pre-operative evaluation. [facility] Past Medical History Medical History Cervical arthritis Chronic anticoagulation Chronic diarrhea Chronic hyponatremia Chronic obstructive pulmonary disease, unspecified Chronic respiratory failure with hypoxia, on home oxygen therapy Coronary artery disease COVID-19 Dyslipidemia Essential hypertension Exocrine pancreatic insufficiency Facial trauma Gastro-esophageal reflux disease without esophagitis Iron deficiency anemia Microscopic colitis Multifocal atrial tachycardia Paroxysmal atrial fibrillation
--- NOTE | 2024-01-14 08:45 | WPDHPUPDATE1 ---
History and Physical Update Update Date/Time: 01/14/24 08:45 History and Physical has been reviewed, including an updated exam of the patient. There are NO changes in the patient's condition. Risks, benefits, and alternatives have been discussed and questions answered. Patient agrees to proceed with procedure.
[2024-01-14 09:05] VITALS: BP 115/51; PULSE 85; RESP 20; O2SAT 99
[2024-01-14 09:15] VITALS: BP 133/61; PULSE 86; RESP 20; O2SAT 96
--- NOTE | 2024-01-14 09:22 | SUR.PHASEII ---
PT MAY RESUME XARELTO TODAY 01/14/[address] ASHLEY ORDERS. PT STATES UNDERSTANDING.
[2024-01-14 09:25] VITALS: BP 137/66; PULSE 84; RESP 20; O2SAT 95
== END 2024-01-14 09:40 | disposition home or self-care (01) ==
PROVIDERS: PCP Family Medicine; Referring Provider Nurse Practitioner; Visit Provider Internal Medicine Gastroenterology
PROC: 0DJD8ZZ Inspection of Lower Intestinal Tract, Via Natural or Artificial Opening Endoscopic (ICD-10-PCS; CPT 45378; principal; 2024-01-14 09:00)
DX: K64.8 Other hemorrhoids (principal); K52.9 Noninfective gastroenteritis and colitis, unspecified; E87.1 Hypo-osmolality and hyponatremia; J44.9 Chronic obstructive pulmonary disease, unspecified; Z99.81 Dependence on supplemental oxygen; I25.719 Atherosclerosis of autologous vein coronary artery bypass graft(s) with unspecified angina pectoris; I10 Essential (primary) hypertension; E78.5 Hyperlipidemia, unspecified; K86.81 Exocrine pancreatic insufficiency; K21.9 Gastro-esophageal reflux disease without esophagitis; D50.9 Iron deficiency anemia, unspecified; I48.0 Paroxysmal atrial fibrillation; E11.9 Type 2 diabetes mellitus without complications; I87.2 Venous insufficiency (chronic) (peripheral); Z79.51 Long term (current) use of inhaled steroids; Z79.84 Long term (current) use of oral hypoglycemic drugs; Z79.01 Long term (current) use of anticoagulants; Z98.890 Other specified postprocedural states; Z98.1 Arthrodesis status; Z95.1 Presence of aortocoronary bypass graft; Z95.5 Presence of coronary angioplasty implant and graft; Z86.73 Personal history of transient ischemic attack (TIA), and cerebral infarction without residual deficits; Z80.0 Family history of malignant neoplasm of digestive organs; Z80.1 Family history of malignant neoplasm of trachea, bronchus and lung; Z80.8 Family history of malignant neoplasm of other organs or systems; Z82.49 Family history of ischemic heart disease and other diseases of the circulatory system
CPT/HCPCS: 45378; 82948; J2001; J2704; J7120

== ENCOUNTER 2024-08-11 08:33 | Outpatient (CLI) | payer OTHER, SELFPAY ==
[2024-08-11 09:26] LABS: Basophils Absolute Auto 0.1 K/mm3 (0.0-0.1); Basophils Percent Auto 0.5 % (0.2-1.2); Eosinophils Percent Auto 0.2 % (0-4.4); Hematocrit 45.8 % (37.0-47.0); Hemoglobin 14.7 g/dL (12.0-15.0); Immature Granulocyte Absolute 0.16 K/mm3 (0.00-0.031); Immature Granulocyte Percent A 1.4 % (0-0.5); Lymphocytes Absolute Auto 1.26 K/mm3 (0.9-3.2); Mean Corpuscular HGB Conc 32.1 g/dl (32-36); Mean Corpuscular Volume 90.3 fl (80-100); Mean Platelet Volume 11.1 fl (7.4-10.4); Monocytes Absolute Auto 0.8 K/mm3 (0.1-0.6); Monocytes Percent Auto 7.2 % (2.6-8.5); Neutrophils Absolute Auto 9.2 K/mm3 (1.3-6.7); Neutrophils Percent Auto 79.7 % (45.5-73.1); Platelet Count Result 326 k/mm3 (150-375); Red Blood Count 5.07 M/mm3 (4.2-5.4); Red Cell Distribution Width 15.7 % (11.5-14.5); White Blood Count 11.5 K/mm3 (4.5-10.0)
[2024-08-11 09:42] LABS: Alanine Aminotransferase 15 U/L (6-35); Albumin Level 3.9 g/dL (3.5-5.1); Alkaline Phosphatase 60 U/L (38-126); Anion Gap 3 mmol/L (4-12); Aspartate Amino Transferase 20 U/L (14-36); Bilirubin,Total 0.9 mg/dL (0.2-1.3); Blood Urea Nitrogen 30 mg/dL (7-17); Calcium 9.2 mg/dL (8.4-10.2); Carbon Dioxide 35 mmol/L (22-30); Chloride 96 mmol/L (98-107); Cholesterol 145 mg/dL (0-200); Estimated Glomerular Filt Rate > 60; Glucose 162 mg/dL (65-110); HDL Direct 42 mg/dL; Potassium 3.4 mmol/L (3.4-5.0); Sodium 134 mmol/L (137-145); Triglycerides 321 mg/dL (<150)
[2024-08-11 09:53] LABS: LDL Cholesterol Direct 46 mg/dL
[2024-08-11 10:12] LABS: Thyroid Stimulating Hormone 0.041 uIU/mL (0.465-4.680)
[2024-08-11 10:38] LABS: Iron 105 ug/dL (37-170)
[2024-08-11 10:41] LABS: Hemoglobin A1C 7.5 % (<5.7)
[2024-08-11 10:46] LABS: Creatinine Urine 135.9 mg/dL
[2024-08-11 10:48] LABS: Percent Iron Saturation 29 % (20-50)
[2024-08-11 10:49] LABS: MALB Creatinine Ratio 45.4 mg/g (0-30); Microalbumin Urine Random 61.7 mg/L (0-16.7)
== END 2024-08-11 08:34 | disposition home or self-care (01) ==
PROVIDERS: PCP Family Medicine; Visit Provider Family Medicine
DX: R74.8 Abnormal levels of other serum enzymes (principal); E13.21 Other specified diabetes mellitus with diabetic nephropathy; D64.9 Anemia, unspecified; I48.0 Paroxysmal atrial fibrillation; I10 Essential (primary) hypertension; Z13.220 Encounter for screening for lipoid disorders
CPT/HCPCS: 36415; 80048; 80061; 80076; 82043; 82607; 82728; 83036; 83540; 83550; 84443; 85025

== ENCOUNTER 2024-09-26 08:57 | Outpatient (CLI) | payer OTHER, SELFPAY ==
--- NOTE | ~2024-09-26 | XR_ITS ---
Lumbosacral Spine: AP and lateral views, with neutral, flexion, and extension positioning Clinical History: Pain Findings: There is straightening of the normal lumbar lordosis. No acute fracture or subluxation seen . There is severe degenerative disc narrowing from L2 through S1. There is severe facet arthropathy t hroughout the lumbar spine. No instability evident on flexion or extension. The sacroiliac joints are normally outlined. Impression: Severe degenerative spondylosis throughout the lumbar spine, as detailed above. Reviewed, dictated and finalized at location [facility]. [employer] Impression: Severe degenerative spondylosis throughout the lumbar spine, as detailed above.
--- OUTSIDE RECORDS SUMMARY | 2024-09-26 09:27 | XMS_ITS | Clinical Summary ---
Author Organization [facility] Address [address] [place] [address] Care Team Providers Care Blue Crabber Name Role Phone Max Carpenter MD Unavailable [phone] Source Comments [facility],non-owned Affiliates and Associated Physician Practices is amultiple site organization consisting of ambulatory clinics and hospital sitesin [place], [place] and [place]. This disclosure is being madepursuant to the Care Everywhere program and may not contain all information available regarding this patient. Last updated 18.[facility] Allergies Active Allergy Reactions Criticality Noted Date Comments Codeine Nausea and/or Vomiting 03/26/2011 Codeine 04/28/2011 Medications * Be aware that medications may not be up to date on this document. Alwaysverify current medications with the patient. Medication Sig Dispensed Refills Start Date End Date Status atenolol (TENORMIN) 25 MG tablet once daily. Active etodolac (LODINE) 400 MG tablet 2 times daily. Active leflunomide (ARAVA) 20 MG tablet once daily. Active pramipexole (MIRAPEX) 0.5 MG tablet once daily. Active hydroxychloroquine (PLAQUENIL) 200 MG tablet 2 times daily. Active ranitidine (ZANTAC) 300 MG tablet once daily. Active amLODIPine (NORVASC) 5 MG tablet once daily. Active TRIAMTERENE PO Three times a week. A ctive leflunomide (ARAVA) 20 MG tablet Take 20 mg by mouth once daily. Active hydroxychloroquine (PLAQUENIL) 200 MG tablet Take 200 mg by mouth 2 times daily. Active etodolac (LODINE) 200 MG capsule Take 400 mg by mouth 2 times daily. Active ranitidine (ZANTAC) 300 MG tablet Take 300 mg by mouth once daily. Active atenolol (TENORMIN) 25 MG tablet Take 25 mg by mouth once daily. Active amLODIPine (NORVASC) 5 MG tablet Take 5 mg by mouth once daily. Active pramipexole (MIRAPEX) 0.5 MG tablet Take 0.5 mg by mouth once daily. Active fish oil/omega-3 fatty acids (PROMEGA;CARDI-OMEGA 3) 1000 MG capsule Take 1,000 mg by mouth daily with food. Active diazepam (VALIUM) 5 MG tabletIndications:Mu scle Spasticity Take 5 mg by mouth 3 times daily as needed. Indications: Muscle Spasticity Active hydrocodone-acetamin ophen (NORCO) 5-325 MG tablet Take 1-2 Tabs by mouth every 4 hours as needed for Pain. 40 Tab 1 07/22/2011 Active diazepam (VALIUM) 5 MG tablet Take 1 Tab by mouth 3 times daily as needed. 90 Tab 2 08/01/2011 Active ketorolac (TORADOL) 10 MG tablet 1 by mouth TID x 5 days then start the Voltaren 15 Tab 0 08/04/2011 Active diclofenac sodium (VOLTAREN) 75 MG tablet Take 1 Tab by mouth 2 times daily. 60 Tab 4 08/04/2011 Active Active Problems Problem Noted Date Diagnosed Date Follow-up examination, following other surgery 1 10/11/2010 MVP (mitral valve prolapse) 07/22/2011 Displacement of lumbar inter vertebral disc without myelopathy 04/02/2011 Social History Tobacco Use Types Packs/Day Years Used Date Smoking Tobacco: Never Tobacco Cessation:Counseling Given: No Alcohol Use Standard Drinks/Week Comments No 0 (1 standard drink = 0.6 oz pur e alcohol) Sex and Gender Information Value Date Recorded Sex Assigned at Not on file Gender Identity Not on file Sexual Orientation Not on file Last Filed Vital Signs Vital Sign Reading Time Taken Comments Blood Pressure 134/68 07/22/2011 4:17 PM [employer] Pulse 81 07/22/2011 4:17 PM [employer] Temperature 36.9 ??C (98.5 ??F) 07/22/2011 4:17 PM CS T Respiratory Rate 18 07/22/2011 4:17 PM [employer] Oxygen Saturation 96% 07/22/2011 4:17 PM [employer] Inhaled Oxygen Concentration - - Weight 104.3 kg (230 lb) 07/22/2011 6:45 AM [employer] [employer] Height 160 cm (5' 3 ) 07/22/2011 6:45 AM [employer] [employer] Body Mass Index 40.74 07/22/2011 6:45 AM [employer] [employer] Plan of Treatment Health Maintenance Due Date Last Done Comments BONE DENSITY TESTING 1950 COLOGUARD (AGES 45-75) - COL ON CA SCREENING 1952 COLON MONITORING 1952 COLONOSCOPY - COLON CA SCREENING 1952 CT COLONOGRAPHY - COLON CA SCREENING 1952 Colorectal Cancer Screening 1952 FIT - COLON CA SCREENING 1952 FLEX SIG - COLON CA SCREENING 1952 LIPID TESTING 1952 MAMMOGRAM 1952 HEPATITIS C SCREENING 02/08/1970 DTAP/TDAP/TD VACCINES (1 - Tdap) 02/12/1971 PNEUMOCOCCAL VACCINE 50+ (1 of 1 - PCV) 02/12/2002 ZOSTER VACCINE (1 of 2) 02/12/2002 Respiratory Syncytial Virus (RSV) Vaccine Pt: or over 60 yrs (1 - Risk 60-74 years 1-dose series) 2012 COVID-19 VACCINE ( - 2023-2 5 season) 2024 INFLUENZA VACCINE (#1) 2024 DEPRESSION SCREENING 08/31/2024 MEDICARE AWV ? CALENDAR YEAR 2024 HEPATITIS B VACCINE Aged Out No longe r eligible based on patient's age to complete this topic HIB VACCINE Aged Out No longer eligi ble based on patient's age to complete this topic HPV VACCINE Aged Out No longer eligi ble based on patient's age to complete this topic MENINGOCOCCAL (Group B) VACCINE Aged Out No longer eligible based on patient's age to complete this topic MENINGOCOCCAL VACCINE Aged Out No viktoria abi eligible based on patient's age to complete this topic Advance Directives * FULL RESUSCITATION (Latest Code Status on File) Date Activated Date Inactivated Comments 07/22/2011 12:27 PM 07/23/2011 6:58 AM Care Teams Blue Crabber Relationship Specialty Start Date End Date Max Carpenter MD Physician Rheumatology 08/10/11
--- OUTSIDE RECORDS SUMMARY | 2024-09-26 09:27 | XMS_ITS | Clinical Summary ---
Author Organization [facility] Address [address] [place] [address] Care Team Providers Care Magazine Filler Name Role Phone Parminder Rojas MD Primary Care Provider [phone] Allergies Active Allergy Reactions Criticality Noted Date Comments Clopidogrel Nausea and Vomiting Low 02/04/2022 Codeine Nausea and Vomiting,Rash Low 03/26/2011 Hydrocodone Nausea and Vomiting Low 02/04/2022 Medications albuterol (PROVENTIL,RABIA HARESH) 2.5 mg /3 mL (0.083 %) Solution for Nebulization albuterol sulfate 2.5 mg/3 mL (0.083 %) solution for nebulization INHALE 1 VIAL VIA NEBULIZER Q 6 H Active atorvastatin (LIPITOR) 40 mg tablet atorvastatin 40 mg tablet Active cholecalciferol, vitamin D3, 1,000 unit Take by mouth. Acti ve Clobetasol 0.05 % Shampoo clobetasol 0.05 % shampoo Active fenofibrate (LOFIBRA) 160 mg Tablet Take 160 mg by mouth daily. 2 Active flu vaccine quadrivalent 2019-,65 yr+,,PF, (Fluzone HighDose Quad 20-21 PF) 240 mcg/0.7 mL Syringe syringe Fluzone High-Dose Quad (PF) 240 mcg/0.7 mL IM syringe PHARMACY ADMINISTERED Active furosemide (LASIX) 40 mg tablet furosemide 40 mg tablet Active leflunomide (ARAVA) 20 mg Tablet Take 20 mg by mouth daily. 2 Active losartan (COZAAR) 50 mg tablet Take 1 Tablet by mouth daily. 2 Active Magnesium 250 mg Tablet 400 mg. Active pantoprazole (PROTONIX) 40 mg Tablet, Delayed Release (E.C.) Take 40 mg by mouth daily in the morning. 2 Active potassium chloride (KLOR-CON) 10 mEq Extended Release tablet Take 20 mEq by mouth daily. 2 Active pramipexole (MIRAPEX) 0.5 mg tablet 2 Active predniSONE (DELTASONE) 20 mg tablet Take 40 mg by mouth daily. 2 Active sotaloL (BETAPACE) 80 mg tablet Take 80 mg by mouth 2 times daily. 2 Active warfarin (COUMADIN) 1 mg tablet warfarin 1 mg tablet 2 Active Active Problems Problem Noted Date Diagnosed Date Chronic anemia 02/04/2022 Family History Medical History Relation Name Comments Colon Cancer Father Relation Name Status Comments Daughter Alive Father Mother Sister Alive Son Alive Social History Tobacco Use Types Packs/Day Years Used Date Smoking Tobacco: Never Smokeless Tobacco: Never Alcohol Use Standard Drinks/Week Comments Yes 0 (1 standard drink = 0.6 oz pur e alcohol) occasional Comments Unknown Sex and Gender Information Value Date Recorded Sex Assigned at Not on file Legal Sex Female 10:41 PM CDT Gender Identity Not on file Sexual Orientation Not on file Last Filed Vital Signs Vital Sign Reading Time Taken Comments Blood Pressure 137/85 02/18/2022 10:11 AM CDT Pulse 106 02/18/2022 10:11 AM CDT Temperature 36.2 ??C (97.1 ??F) 02/18/2022 10:11 AM C DT Respiratory Rate - - Oxygen Saturation 90% 02/18/2022 10:11 AM CDT Inhaled Oxygen Concentration - - Weight 93.2 kg (205 lb 8 oz) 02/18/2022 10:11 AM CDT Height 160 cm (5' 3 ) 02/18/2022 10:11 AM CDT Body Mass Index 36.4 02/18/2022 10:11 AM CDT Plan of Treatment Health Maintenance Due Date Last Done Comments DTAP/TDAP/TD VACCINES (1 - Tdap) 02/12/1971 BREAST CANCER SCREENING 1992 COLORECTAL SCREENING 02/12/1997 Colorectal Cancer Screening 02/12/1997 FIT-DNA Q 3 years 02/12/1997 FIT/FOBT Q 1 year 02/12/1997 Flex Sig/CT Colonography Q 5 years 02/12/1997 ZOSTER VACCINE (2 of 3) 05/18/2013 03/23/2013 OSTEOPOROSIS SCREENING 02/12/2017 PNEUMOCOCCAL VACCINE 65+ YEA RS (2 of 2 - PPSV23) 08/20/2021 08/20/2020 INFLUENZA VACCINE (#1) 2024 0, 06/08/2018, 06/22/2017, Additional history exists COVID-19 Vaccine (3 - 2023-2 5 season) 2024 12/20/2020, 11/29/2020 RSV VACCINE (60+ or ) (1 - 1-dose 75+ series) 02/12/[address] [place] [address] [employer] PPO MCR Care Teams Magazine Filler Relationship Specialty Start Date End Date Parminder Rojas MD [address] [place] [id number] PCP - General Family Practice 02/04/22
--- OUTSIDE RECORDS SUMMARY | 2024-09-26 09:27 | XMS_ITS | Patient Health Summary ---
Author Organization [facility] Address [address] [place] [address] Care Team Providers Care Mainframe Architect Name Role Phone Filippo Carpenter MD Unavailable [phone] Note from [facility],non-owned Affiliates and Associated Physician Practices is amultiple site organization consisting of ambulatory clinics and hospital sitesin [place], [place], [place] and [place]. This disclosure is being madepursuant to the Care Everywhere program and may not contain all information available regarding this patient. Last updated 18.[facility] Allergies * Codeine(Nausea and/or Vomiting) * Codeine Medications * Be aware that medications may not be up to date on this document. Alwaysverify current medications with the patient. * atenolol (TENORMIN) 25 MG tablet once daily. * etodolac (LODINE) 400 MG tablet 2 times daily. * leflunomide (ARAVA) 20 MG tablet once daily. * pramipexole (MIRAPEX) 0.5 MG tablet once daily. * hydroxychloroquine (PLAQUENIL) 200 MG tablet 2 times daily. * ranitidine (ZANTAC) 300 MG tablet once daily. * amLODIPine (NORVASC) 5 MG tablet once daily. * TRIAMTERENE PO Three times a week. * leflunomide (ARAVA) 20 MG tablet Take 20 mg by mouth once daily. * hydroxychloroquine (PLAQUENIL) 200 MG tablet Take 200 mg by mouth 2 times daily. * etodolac (LODINE) 200 MG capsule Take 400 mg by mouth 2 times daily. * ranitidine (ZANTAC) 300 MG tablet Take 300 mg by mouth once daily. * atenolol (TENORMIN) 25 MG tablet Take 25 mg by mouth once daily. * amLODIPine (NORVASC) 5 MG tablet Take 5 mg by mouth once daily. * pramipexole (MIRAPEX) 0.5 MG tablet Take 0.5 mg by mouth once daily. * fish oil/omega-3 fatty acids (PROMEGA;CARDI-OMEGA 3) 1000 MG capsule Take 1,000 mg by mouth daily with food. * diazepam (VALIUM) 5 MG tablet Take 5 mg by mouth 3 times daily as needed. Indications: Muscle Spasticity * hydrocodone-acetaminophen (NORCO) 5-325 MG tablet(Started 07/22/2011) Take 1-2 Tabs by mouth every 4 hours as needed for Pain. 1 refill left * diazepam (VALIUM) 5 MG tablet(Started 08/01/2011) Take 1 Tab by mouth 3 times daily as needed. 2 refills left * ketorolac (TORADOL) 10 MG tablet(Started 08/04/2011) 1 by mouth TID x 5 days then start the Voltaren * diclofenac sodium (VOLTAREN) 75 MG tablet(Started 08/04/2011) Take 1 Tab by mouth 2 times daily. 4 refills left Active Problems Problem Noted Date Diagnosed Date [...] Comments Blood Pressure 134/68 07/22/2011 4:17 PM RADIOLOGICAL ENGINEER Pulse 81 07/22/2011 4:17 PM RADIOLOGICAL ENGINEER Temperature 36.9 ??C (98.5 ??F) 07/22/2011 4:17 PM CS T Respiratory Rate 18 07/22/2011 4:17 PM RADIOLOGICAL ENGINEER Oxygen Saturation 96% 07/22/2011 4:17 PM RADIOLOGICAL ENGINEER Inhaled Oxygen Concentration - - Weight 104.3 kg (230 lb) 07/22/2011 6:45 AM RADIOLOGICAL ENGINEER Height 160 cm (5' 3 ) 07/22/2011 6:45 AM RADIOLOGICAL ENGINEER Body Mass Index 40.74 07/22/2011 6:45 AM RADIOLOGICAL ENGINEER Procedures * DERMATOPATHOLOGY(Performed 05/22/2022) * DERMATOPATHOLOGY(Performed 07/18/2020) * DERMATOPATHOLOGY(Performed 01/26/2019) * CARDIAC RHYTHM STRIP ORDER(Performed 07/28/2011) * XR SPINE 1 VIEW(Performed 07/22/2011) Performed for Back pain * MRI LUMBAR SPINE WWO CONTRAST(Performed 04/28/2011) Performed for Displacement of lumbar intervertebral disc * CREATININE BLOOD - POINT OF CARE (IP)(Performed 04/28/2011) Results * DERMATOPATHOLOGY (05/22/2022 12:00 AM CDT) Only the most recent of3 resultswithin the time period is included. Case Report Dermatopathology Report ? Case: [id number] ? Authorizing Provider: ??Zora Gilmore MD ?Collected: ? 05/22/2022 12:00 AM ? Ordering Location: ? [facility] Care DermPath Lab ?Received: ?05/23/2022 11:35 AM ? Pathologist: ? Nicolette Goff, ? MD ? Specimen: ?Skin, forehead ? 2 1:23 PM CDT DERMATOPATHOLOGY LABORATORY Final Diagnosis Specimen A. SKIN, forehead: EPIDERMOID CYST (L72.0) 2 1:23 PM T DERMATOPATHOLOGY LABORATORY Clinical History Cystic nodule.Cyst R/O atypia 2 1:23 PM CDT DERMATOPATHOLOGY LABORATORY Gross Description Specimen A: Received is one formalin filled container labeled with the patient's name and designated forehead. The specimen consists of a shave biopsy measuring 6x5x1 mm. Jar 0. 2 1:23 PM [facility] DERMATOPATHOLOGY LABORATORY Microscopic Description Specimen A. SKIN, forehead: Within the dermis, there is a space lined by epithelium that resembles normal epidermis and the infundibular portion of the hair follicle. 2 1:23 PM T DERMATOPATHOLOGY LABORATORY Disclaimer An external and internal positive and negative controls are appropriate for the histochemical, immunohistochemical and immunofluorescence stain(s) in this case (if any), except where stated explicitly. The performance characteristics of the stain(s) cited in this report were developed and its performance characteristic determined by the Dermatopathology Laboratory at [facility], directed by Dr. Krys Villagran. These tests need not be, and therefore are not, approved by the [place] Food and Drug Administration. The tests are used for clinical purposes. Billing Codes Specimen Charges Stain Charges 18931 1 2 1:23 PM CDT DERMATOPATHOLOGY LABORATORY Embedded Images 2 1:23 PM CDT DERMATOPATHOLOGY LABORATORY Pathology/Cytolog y TISSUE SPECIMEN FROM SKIN / Unknown 05/22/2022 05/23/2022 11:35 AM CDT Zora Gilmore MD LAB - PATHOLOGY/CYTO LOGY ORDERABLES DERMATOPATHOLOGY LABORATORY [facility] - Department of Dermatology [address], [address] [phone] * CARDIAC RHYTHM STRIP ORDER (07/28/2011 2:04 PM RADIOLOGICAL ENGINEER) Narrative Transcriptions Document, Scanned - 07/28/2011 2:04 PM CST Scanned Document CARDIAC SERVICES ORD ERABLES * XR SPINE 1 VIEW (07/22/2011 9:40 AM RADIOLOGICAL ENGINEER) Anatomical Region Laterality Modality Spine Radio Fluoroscop y 07/22/2011 10:2 8 AM RADIOLOGICAL ENGINEER Narrative 07/22/2011 10:31 AM RADIOLOGICAL ENGINEER SINGLE CROSSTABLE LATERAL VIEW OF THE LUMBAR SPINE OBTAINED INTRAOPERATIVELY Clinical Indication: Back surgery. There is intraoperative localization between the spinous processes of L3 and L4. Procedure Note Onur Dotson MD - 07/22/2011 SINGLE CROSSTABLE LATERAL VIEW OF THE LUMBAR SPINE OBTAINED INTRAOPERATIVELY Clinical Indication: Back surgery. There is intraoperative localization between the spinous processes of L3 and L4. Abdirahman Waite MD DIAGNOSTIC IMAGING O RDERABLES * MRI SPINE LUMBAR WITH & WITHOUT CONTRAST MP (04/28/2011 12:40 PM CDT) Anatomical Region Laterality Modality Spine Magnetic Resonan ce Angiography 04/28/2011 2:14 PM CDT Impressions 04/28/2011 2:43 PM CDT Multilevel spondylosis with most severe changes at L3-L4 with extruded fragment extending inferiorly and to the left. Narrative 04/28/2011 2:43 PM CDT MRI LUMBAR SPINE WITH AND WITHOUT CONTRAST. HISTORY: Back pain, numbness and pain in back of left leg and left foot. Images were obtained in sagittal and axial planes using T1 and T2 weighted sequences. 20 cc Omniscan was utilized. Vertebral heights are normal. There is interspace height loss at multiple levels. Degenerative changes are seen in some vertebral endplates. At T10-T11 and T11-T12, there are broad-based disc bulges narrowing the spinal canal. There might be slight pressure effect on the spinal cord at the T10-T11 level. At T12-L1, the spinal canal and neural foramina are patent. At L2-L3, there is a broad-based disc bulge and facet and ligamentous hypertrophy. The AP diameter of the dural sac is narrowed to 8.5 mm. There is lateral recess and neural foraminal narrowing bilaterally. At L3-L4, there is a broad-based disc bulge and facet and ligamentous hypertrophy. A disc extrusion is present to the left of midline extending inferiorly into the neural foramen at the inferior level (L4-L5). At L4-L5, there appears to be a prior laminectomy defect on the left. There is a broad-based disc bulge and facet and ligamentous hypertrophy. Neural foraminal narrowing and lateral recess narrowing is seen bilaterally. Spinal canal AP diameter is about 8 mm. Postcontrast, there is enhancement in the tissues adjacent to the disc extrusion and disc bulges consistent with scarring or granulation tissue. At L5-S1, there is a central disc protrusion with an extruded fragment extending superiorly such that it lay behind the L5 vertebral body. There is facet and ligamentous hypertrophy also apparent. The spinal canal is patent. Procedure Note Shahid Patel MD - 04/28/2011 MRI LUMBAR SPINE WITH AND WITHOUT CONTRAST. HISTORY: Back pain, numbness and pain in back of left leg and left foot. Images were obtained in sagittal and axial planes using T1 and T2 weighted sequences. 20 cc Omniscan was utilized. Vertebral heights are normal. There is interspace height loss at multiple levels. Degenerative changes are seen in some vertebral endplates. At T10-T11 and T11-T12, there are broad-based disc bulges narrowing the spinal canal. There might be slight pressure effect on the spinal cord at the T10-T11 level. At T12-L1, the spinal canal and neural foramina are patent. At L2-L3, there is a broad-based disc bulge and facet and ligamentous hypertrophy. The AP diameter of the dural sac is narrowed to 8.5 mm. There is lateral recess and neural foraminal narrowing bilaterally. At L3-L4, there is a broad-based disc bulge and facet and ligamentous hypertrophy. A disc extrusion is present to the left of midline extending inferiorly into the neural foramen at the inferior level (L4-L5). At L4-L5, there appears to be a prior laminectomy defect on the left. There is a broad-based disc bulge and facet and ligamentous hypertrophy. Neural foraminal narrowing and lateral recess narrowing is seen bilaterally. Spinal canal AP diameter is about 8 mm. Postcontrast, there is enhancement in the tissues adjacent to the disc extrusion and disc bulges consistent with scarring or granulation tissue. At L5-S1, there is a central disc protrusion with an extruded fragment extending superiorly such that it lay behind the L5 vertebral body. There is facet and ligamentous hypertrophy also apparent. The spinal canal is patent. IMPRESSION Multilevel spondylosis with most severe changes at L3-L4 with extruded fragment extending inferiorly and to the left. Abdirahman Waite MD MR ORDERABLES * CREATININE BLOOD - POINT OF CARE (IP) (04/28/2011 11:48 AM CDT) Creatinine POCT 0.83 0.7 - 1.2 mg/dL [facility] POCT TESTING QC Verified yes Yes [facility] POC T TESTING Blood specimen (specimen) BLOOD SPECIMEN / Unknown 04/28/2011 11:48 AM CDT Abdirahman Waite MD LAB - POINT OF CARE ORDERABLES [place] [address] Care Teams Mainframe Architect Relationship Specialty Start Date End Date Filippo Carpenter MD Physician Rheumatology 08/10/11
--- OUTSIDE RECORDS SUMMARY | 2024-09-26 09:27 | XMS_ITS | Patient Health Record ---
Author Organization [facility] almita Address [address] [place] [address] Care Team Providers Care Motorman/Woman Name Role Phone Sammie RONDON, Parminder Primary Care Provider Unavail able Filippo Jenkins Unavailable [phone] Allergies Allergen (clinical drug ingredient) Drug/Non Drug Allergy documented on EMR Reaction Allergy Type Onset Date Status Amoxicillin ER Unknown Drug Allergy Ac tive codeine Codeine Unknown Drug Allergy 11/05/2004 Active Results Component Value Reference Range Notes CBC w auto diff Reviewed date:05/25/2024 06:19:32 AM Interpretation: Performing Lab:[facility] , [facility] [place]. [facility] [address] Notes/Report: WBC 7.1 3.8-9.9 K/cumm Hgb 13.4 11.9-15.5 g/dL Hct 44.7 35.6-45.5 % Platelet Ct 271 150-400 K/cumm MPV 12.6 9.1-12.3 fL RBC 4.84 3.90-5.20 M/cumm MCV 92.4 81.3-96.4 fL MCH 27.7 27.1-33.3 pg MCHC 30.0 32.3-35.7 g/dL RDW CV 16.7 11.1-14.9 % RDW SD 55.3 35.7-48.1 fL NRBC Abs Auto 0.00 0.00-0.01 K/cumm Creatinine Reviewed date:05/25/2024 06:16:23 AM Interpretation: Performing Lab:[facility] , [address] [facility]. [facility] [address] Notes/Report: Creatinine 0.80 0.60-1.10 mg/dL Hep Func Panel Reviewed date:05/25/2024 06:15:44 AM Interpretation: Performing Lab:[facility] , [address] [place] [address] Notes/Report: Total Bilirubin 0.5 0.1-1.2 mg/dL Bilirubin, Direct 0.2 0.1-0.3 mg/dL Plasma Total Protein 6.8 6.5-8.5 g/dL Albumin 4.1 3.5-5.0 g/dL Alkaline Phosphatase 58 40-130 Units/L ALT 11 7-45 Units/L AST 16 10-45 Units/L Hep Func Panel Reviewed date:09/03/2024 03:29:31 PM Interpretation: Performing Lab:[facility] , [address] [place], [place] [id number] Notes/Report: Total Bilirubin 0.4 0.1-1.2 mg/dL Bilirubin, Direct 0.2 0.1-0.3 mg/dL Plasma Total Protein 6.2 6.5-8.5 g/dL Albumin 4.1 3.5-5.0 g/dL Alkaline Phosphatase 50 40-130 Units/L ALT 16 7-45 Units/L AST 18 10-45 Units/L Creatinine Reviewed date:09/03/2024 03:29:31 PM Interpretation: Performing Lab:[facility] , [address] [place] [address] Notes/Report: Creatinine 0.68 0.60-1.10 mg/dL CBC w auto diff Reviewed date:09/03/2024 03:29:31 PM Interpretation: Performing Lab:[facility] , [address] [place] [address] Notes/Report: WBC 6.8 3.8-9.9 K/cumm Hgb 13.9 11.9-15.5 g/dL Hct 43.6 35.6-45.5 % Platelet Ct 259 150-400 K/cumm MPV 12.1 9.1-12.3 fL RBC 4.61 3.90-5.20 M/cumm MCV 94.6 81.3-96.4 fL MCH 30.2 27.1-33.3 pg MCHC 31.9 32.3-35.7 g/dL RDW CV 16.0 11.1-14.9 % RDW SD 54.6 35.7-48.1 fL NRBC Abs Auto 0.00 0.00-0.01 K/cumm eGFR Reviewed date:09/03/2024 03:29:31 PM Interpretation: Performing Lab:[facility] , [address] [place] [address]. [facility] [address] Notes/Report: eGFR >90 >=60 mL/min/1.73 m2 Interpretive Data Reference Interval Normal >/= 90 mL/min/1.73m2 Mildly decreased* 60 - 89 mL/min/1.73m2 Mildly to moderately decreased 45 - 59 mL/min/1.73m2 Moderately to severely decreased 30 - 44 mL/min/1.73m2 Severely decreased 15 - 29 mL/min/1.73m2 Kidney Failure < 15 mL/min/1.73m2 *Relative to young adult level Estimated glomerular filtration rate is determined by the 2020 CKD-EPI equation recommended by the National Kidney Foundation (A Unifying Approach to GFR Estimation: Recommendations of the NKF-ASK Task Force on Reassessing the Inclusion of Race in Diagnosing Kidney Disease, JASN 2020). The CKD-EPI equation should not be used for patients with unstable renal function and has not been validated in children and those over 70. Current interpretive data was last reviewed 2021. Differential Automated Reviewed date:09/03/2024 03:29:31 PM Interpretation: Performing Lab:[facility] , [address] [place] [address]. [facility] [address] Notes/Report: Neut Abs 4.5 1.5-6.5 K/cumm ImmGran Abs 0.0 0.0-0.1 K/cumm Lymphocyte Abs 1.3 0.8-3.3 K/cumm Yellowstone Abs 0.8 0.2-0.8 K/cumm Eos Abs 0.1 0.0-0.5 K/cumm Baso Abs 0.1 0.0-0.1 K/cumm Neut Pct 65.5 Interpretive Data Percent cell count reference ranges are not reported, since discordance with absolute values may lead to misinterpretation of CBC data. Current Interpretive Data was last revised on 2017. ImmGran Pct 0.4 Interpretive Data Percent cell count reference ranges are not reported, since discordance with absolute values may lead to misinterpretation of CBC data. Current Interpretive Data was last revised on 2017. Lymph Pct 19.0 Interpretive Data Percent cell count reference ranges are not reported, since discordance with absolute values may lead to misinterpretation of CBC data. Current Interpretive Data was last revised on 2017. Yellowstone Pct 12.1 Interpretive Data Percent cell count reference ranges are not reported, since discordance with absolute values may lead to misinterpretation of CBC data. Current Interpretive Data was last revised on 2017. Eos Pct 2.1 Interpretive Data Percent cell count reference ranges are not reported, since discordance with absolute values may lead to misinterpretation of CBC data. Current Interpretive Data was last revised on 2017. Baso Pct 0.9 Interpretive Data Percent cell count reference ranges are not reported, since discordance with absolute values may lead to misinterpretation of CBC data. Current Interpretive Data was last revised on 2017. eGFR Reviewed date:05/25/2024 06:17:27 AM Interpretation: Performing Lab:[facility] , [address] [place] [address]. [facility] [address] Notes/Report: eGFR 78 >=60 mL/min/1.73 m2 Interpretive Data Reference Interval Normal >/= 90 mL/min/1.73m2 Mildly decreased* 60 - 89 mL/min/1.73m2 Mildly to moderately decreased 45 - 59 mL/min/1.73m2 Moderately to severely decreased 30 - 44 mL/min/1.73m2 Severely decreased 15 - 29 mL/min/1.73m2 Kidney Failure < 15 mL/min/1.73m2 *Relative to young adult level Estimated glomerular filtration rate is determined by the 2020 CKD-EPI equation recommended by the National Kidney Foundation (A Unifying Approach to GFR Estimation: Recommendations of the NKF-ASK Task Force on Reassessing the Inclusion of Race in Diagnosing Kidney Disease, JASN 2020). The CKD-EPI equation should not be used for patients with unstable renal function and has not been validated in children and those over 70. Current interpretive data was last reviewed 2021. Differential Automated Reviewed date:05/25/2024 06:17:21 AM Interpretation: Performing Lab:[facility] , [address] [facility] [address] Notes/Report: Neut Abs 4.7 1.5-6.5 K/cumm ImmGran Abs 0.0 0.0-0.1 K/cumm Lymphocyte Abs 1.2 0.8-3.3 K/cumm Yellowstone Abs 0.8 0.2-0.8 K/cumm Eos Abs 0.2 0.0-0.5 K/cumm Baso Abs 0.1 0.0-0.1 K/cumm Neut Pct 67.1 Interpretive Data Percent cell count reference ranges are not reported, since discordance with absolute values may lead to misinterpretation of CBC data. Current Interpretive Data was last revised on 2017. ImmGran Pct 0.3 Interpretive Data Percent cell count reference ranges are not reported, since discordance with absolute values may lead to misinterpretation of CBC data. Current Interpretive Data was last revised on 2017. Lymph Pct 17.6 Interpretive Data Percent cell count reference ranges are not reported, since discordance with absolute values may lead to misinterpretation of CBC data. Current Interpretive Data was last revised on 2017. Yellowstone Pct 11.6 Interpretive Data Percent cell count reference ranges are not reported, since discordance with absolute values may lead to misinterpretation of CBC data. Current Interpretive Data was last revised on 2017. Eos Pct 2.4 Interpretive Data Percent cell count reference ranges are not reported, since discordance with absolute values may lead to misinterpretation of CBC data. Current Interpretive Data was last revised on 2017. Baso Pct 1.0 Interpretive Data Percent cell count reference ranges are not reported, since discordance with absolute values may lead to misinterpretation of CBC data. Current Interpretive Data was last revised on 2017. Reason For Referral No Information Medications Medication SIG (Take, Route, Frequency, Duration) Notes Start Date End Date Status Lomotil 2.5-0.025 MG take 2 tablets (5 m g) by oral route once daily Oral as needed Active Leflunomide 20 MG TAKE 1 TABLET BY KEITH TH EVERY DAY for 90 Active Meclizine HCl 25 MG take 1 tablet (25 mg ) by oral route once daily Oral 1 Active Pantoprazole Sodium 40 MG take 1 tablet (40 mg) by oral route once daily Oral 1 Active Proventil HFA 108 (90 Base) MCG/ACT inhale 1 puff (90 mcg) by inhalation route every 6 hours as needed Inhalation 4 Not-Taking Potassium Chloride ER 20 MEQ take 1 tablet (20 meq) by oral route 2 times per day with food Oral 2 Active Mounjaro 2.5 MG/0.5ML INJECT 2.5 MG UNDE R THE SKIN WEEKLY FOR 4 WEEKS Subcutaneous for 28 Days Active Pravastatin Sodium 10 MG take 1 tablet ( 10 mg) by oral route once daily at bedtime Oral 1 Active Praluent 150 MG/ML inject 1 milliliter (150 mg) by subcutaneous route every 2 weeks in the abdomen, thigh, or upper arm rotating injection sites Subcutaneous [id number] Active Metoprolol Tartrate 25 MG take 1 tablet (25 mg) by oral route 2 times per day Oral 2 Active Furosemide 40 MG take 1 tablet (40 mg ) by oral route once daily Oral 1 Active Sotalol HCl 80 MG TAKE 1 TABLET BY ORA L ROUTE 2 TIMES EVERY DAY Oral 01/25/2019 Active Stiolto Respimat 2.5-2.5 MCG/ACT inhale 2 puffs by inhalation route once daily at the same time each day Inhalation 1 Active Vitamin D (Ergocalciferol) 63573 UNIT Oral Active Xarelto 20 MG take 1 tablet (20 mg ) by oral route once daily with the evening meal Oral 1 Active Pramipexole Dihydrochloride 0.5 MG take 1 tablet (0.5 mg) by oral route 2-3 hours before bedtime Oral 0 Active Problems Problem Type SNOMED Code ICD Code Onset Dates Problem Status W/U Status Risk Notes Problem 796223666 Other specified rheumatoid arthritis, 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 Problem 572008895 Other exterminator helper termite (current) drug therapy (Z79.899) Active confirmed Problem Rheumatoid arthritis (11406450) Rheumatoid arthritis, unspecified (M06.9) 5 Active confirmed Vital Signs Heart Rate 68 /min 09/02/2024 Temperature 97.7 degrees Fahrenheit 09/02/2024 Height-cm 160.02 cm 09/02/2024 Oximetry 92 % 09/02/2024 Blood pressure diastolic 80 mm Hg 09/02/2024 Weight-kg 85.26 kg 09/02/2024 Height 63 in 09/02/2024 Blood pressure systolic 140 mm Hg 09/02/2024 Weight 188 lbs 09/02/2024 BMI 33.3 kg/m2 09/02/2024 Encounters Encounter Location Date Provider Diagnosis [facility] [address] [place] [address] 11/20/2023 Filippo Resendizalerio Rheumatoid arthritis, unspecified M06.9 and Other exterminator helper termite (current) drug therapy Z79.899 [facility] [address] [place] [address] 02/19/2024 Filippo DiValerio Rheumatoid arthritis, unspecified M06.9 and Other assisted (current) drug therapy Z79.899 [facility] [address] [place] [address] 05/24/2024 Filippo DiValerio Other assisted (current) drug therapy Z79.899 and Other specified rheumatoid arthritis, 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 [facility] [address] [place] [address] 09/02/2024 Filippo DiValerio Other exterminator helper termite (current) drug therapy Z79.899 and Other specified rheumatoid arthritis, 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 [facility] [address] [place] [address] 02/19/2024 Filippo Jenkins Assessments Encounter Date Diagnosis (ICD Code) Assessment Notes Treatment Notes Treatment Clinical Notes Section Notes 11/20/2023 Rheumatoid arthritis, unspecified (ICD-10 - M06.9) 11/20/2023 Other assisted (current) drug therapy (ICD-10 - Z79.899) 02/19/2024 Rheumatoid arthritis, unspecified (ICD-10 - M06.9) 05/24/2024 Other specified rheumatoid arthritis, multiple sites (ICD-10 - M06.89) 05/24/2024 Other assisted (current) drug therapy (ICD-10 - Z79.899) 09/02/2024 Other specified rheumatoid arthritis, multiple sites (ICD-10 - M06.89) 09/02/2024 Other assisted (current) drug therapy (ICD-10 - Z79.899) 02/19/2024 Other assisted (current) drug therapy (ICD-10 - Z79.899) Plan Of Treatment Pending Test Test Name Order Date CBC With Differential/Platelet 3 CBC With Differential/Platelet 4 CBC With Differential/Platelet 4 Hepatic Function Panel (7) 02/19/2024 Hepatic Function Panel (7) 11/20/2023 Hepatic Function Panel (7) 08/21/2023 ESR 02/19/2024 Creatinine 02/19/2024 Creatinine 08/21/2023 Creatinine 11/20/2023 Next Appt Details Provider Name:Filippo Rowland Lizet sylvester, 12/02/2024 11:00:00 AM, [address], [facility] [address], [place], [address], Insurance Providers Payer Name Payer Address Payer Phone Subscriber Number Group Number Insured Name Patient Relationship to Insured Coverage Start Date Coverage End Date [facility] [address] [place] [address] [id number] Laura Clifford Self - patient is the insured [employer] [address] [place] [id number] Laura Clifford Self - patient is the insured 1 DO NOT USE [id number] Laura Clifford Self - patient is the insured 8 [employer] Ppo [address] [address] [place] [address] [id number] Laura Clifford Self - patient is the insured 2 [employer] [address] [address] [place] [address] [id number] Laura Clifford Self - patient is the insured [employer] Medicare Ppo [address] [place] [address] [id number] Laura Clifford Self - patient is the insured Medical (General) History Surgical History Surgery Date(Month/Year)
--- OUTSIDE RECORDS SUMMARY | 2024-09-26 09:27 | XMS_ITS | Encounter Summary ---
Author Organization [facility] Health Address [address] [facility] [place] [address] Care Team Providers Care Audio Video Repairer Name Role Phone Filippo Carpenter MD Unavailable [phone] Encounter Details Date Type Department Care Team (Late st Contact Info) Description 07/19/2020 Lab Requisition [facility] [address] [facility] [place] [address] Zora Gilmore MD [address] [facility] [address] [place] [address] Social History Tobacco Use Types Packs/Day Years Used Date Smoking Tobacco: Never Alcohol Use Standard Drinks/Week Comments No 0 (1 standard drink = 0.6 oz pur e alcohol) Sex and Gender Information Value Date Recorded Sex Assigned at Not on file Gender Identity Not on file Sexual Orientation Not on file documented as of this encounter Plan of Treatment Not on file documented as of this encounter Procedures Procedure Name Priority Date/Time Associated Diagnosis Comments DERMATOPATHOLOGY Routine 07/18/2020 12:0 0 AM MOLD WASHER documented in this encounter Results * DERMATOPATHOLOGY (07/18/2020 12:00 AM MOLD WASHER) Case Report Dermatopathology Report ? Case: [id number] ? Authorizing Provider: ??Zora Gilmore MD ?Collected: ? 07/18/2020 12:00 AM ? Ordering Location: ? [facility] ?Received: ?07/19/2020 05:55 AM ? Pathologist: ? Miranda Brennan MD ? Specimen: ?Skin, nose tip ? 0 7:17 PM [facility] DERMAT[facility]ATHOLOGY [facility]ORATORY Final Diagnosis Specimen A. SKIN, nose tip: ACTINIC KERATOSIS (L57.0) (see microscopic description) 0 7:17 PM [facility] DERMATOPATH[facility]Y [facility]OR[facility] Clinical History R/O BCC,AK 0 7:17 PM [facility]ERMATOPATHOLOGY [facility]OR[facility] Gross Description Specimen A: Received is one formalin filled container labeled with the patient's name and designated nose tip. The specimen consists of a shave biopsy measuring 3x3x1 mm. Jar 0. 0 7:17 PM [facility] DERMATOPATHOLOGY LABORATORY Microscopic Description Specimen A. SKIN, nose tip: There is focal parakeratosis. The lower half of the epidermis shows disorderly maturation of keratinocytes with nuclear pleomorphism. Additional deeper sections were obtained and reviewed. 0 7:17 PM [facility] DERMATOPATHOLOGY LABORATORY Disclaimer An external and internal positive and negative controls are appropriate for the histochemical, immunohistochemical and immunofluorescence stain(s) in this case (if any), except where stated explicitly. The performance characteristics of the stain(s) cited in this report were developed and its performance characteristic determined by the Dermatopathology Laboratory at [facility], directed by Dr. Krys Villagran. These tests need not be, and therefore are not, approved by the [place] Food and Drug Administration. The tests are used for clinical purposes. Billing Codes Specimen Charges Stain Charges 58603 1 0 7:17 PM [facility]ERMAT[facility]ORY Embedded Images 0 7:17 PM [facility] DERMAT[facility] LABORATORY Pathology/Cytolog y TISSUE SPECIMEN FROM SKIN / Unknown 07/18/2020 07/19/2020 5:55 AM MOLD WASHER Zora Gilmore MD LAB - PATHOLOGY/CYTO LOGY ORDERABLES DERMATOPATHOLOGY LABORATORY [facility] Department of Dermatology [facility] [place] [facility] Medicine [address] [place] [address], [address] [phone] documented in this encounter Visit Diagnoses Not on filedocumented in this encounter Care Teams Audio Video Repairer Relationship Specialty Start Date End Date Filippo Carpenter MD Physician Rheumatology 08/10/11 documented as of this encounter
--- OUTSIDE RECORDS SUMMARY | 2024-09-26 09:27 | XMS_ITS | Clinical Summary ---
Author Organization [facility] Address [address], [facility] [address] [place] [address] Phone Care Team Providers Care Physical Education Teacher Name Role Phone Parminder Rojas MD Primary Care Provider [phone] Allergies Active Allergy Reactions Criticality Noted Date Comments Codeine Unknown 04/21/2018 Medications dicyclomine (BENTYL) 10 MG Capsule Take 1 Cap by mouth every 8 hours as needed for Pain. 90 Cap 8 Active hydrocortisone (PROCTOSOL HC) 2.5 % Cream Apply daily. Apply to rectum as directed. 1 Tube 8 Active leflunomide (ARAVA) 20 MG Tablet Take 20 mg by mouth daily. Active sotalol (BETAPACE) 80 MG Tablet Take 80 mg by mouth 2 times daily. Active pantoprazole (PROTONIX) 40 MG Tablet Delayed Response Take 40 mg by mouth daily. Active furosemide (LASIX) 40 MG Tablet Take 40 mg by mouth daily. Active warfarin (COUMADIN) 2 MG Tablet Take 2 mg by mouth daily. Active atorvastatin (LIPITOR) 40 MG Tablet Take 40 mg by mouth daily. Active potassium citrate (UROCIT K) 10 MEQ (1080 MG) Tablet Controlled Release Take 10 mEq by mouth daily. Active tiZANidine (ZANAFLEX) 2 MG Capsule Take 2 mg by mouth 3 times daily. Active Magnesium Oxide 400 MG Capsule Take by mouth. Active albuterol (PROAIR HFA) 108 (90 Base) MCG/ACT Aerosol Solution take 2 Puffs by inhalation every 4 hours as needed. Active aspirin EC 81 MG Tablet Delayed Response Take 81 mg by mouth daily. Active Cholecalciferol (VITAMIN D3) 1000 UNIT Tablet Take by mouth. Activ e Anna-3 Fatty Acids (FISH OIL PO) Take by mouth. Activ e diphenoxylate-a tropine (LOMOTIL) 2.5-0.025 MG Tablet Take 1 Tablet by mouth 4 times daily as needed. Active Psyllium (METAMUCIL PO) Take by mouth. Active dilTIAZem (CARDIZEM) 12 mg/mL compounded suspension Take by mouth Active Active Problems Problem Noted Date Diagnosed Date Anal fissure 02/07/2021 Immunizations Immunization Administration Dates Next Due Covid-19, Mrna, Lnp-s, Pf, 30 Mcg/0.3 Ml Dose (P fizer) 12/20/2020,11/29/2020 Influenza Vaccine 06/05/2015 Influenza Vaccine, Quadrivalent, PF 07/07/2016 Influenza, High-dose, Quadrivalent 06/15/2020 Influenza, Seasonal, Injectable, Undefined 05/23,07/19/2012 Influenza, high-dose, trivalent, PF 06/08/2018,1 Pneumococcal Vaccine - 13 Valent 08/20/2020 Zoster Vaccine, live 03/23/2013 Family History Medical History Relation Name Comments Colon Cancer Father Heart Disease Mother Lung Cancer Paternal Aunt Lung Cancer Paternal Grandmother Relation Name Status Comments Father Mother Paternal Aunt Paternal Grandmother Social History Tobacco Use Types Packs/Day Years Used Date Smoking Tobacco: Never Smokeless Tobacco: Never Tobacco Cessation:Counseling Given: No Alcohol Use Standard Drinks/Week Comments No 0 (1 standard drink = 0.6 oz pur e alcohol) Sexually Active Control Partners Comments Yes Comments No Sex and Gender Information Value Date Recorded Sex Assigned at Not on file Legal Sex Female 10:19 PM CDT Gender Identity Not on file Sexual Orientation Not on file Last Filed Vital Signs Vital Sign Reading Time Taken Comments Blood Pressure 118/64 04/11/2021 9:59 AM CDT Pulse 88 04/11/2021 9:59 AM CDT Temperature 36.5 ??C (97.7 ??F) 04/11/2021 9:59 AM CD T Respiratory Rate 20 04/11/2021 9:59 AM CDT Oxygen Saturation 94% 04/11/2021 9:59 AM CDT Inhaled Oxygen Concentration - - Weight 88.5 kg (195 lb) 04/11/2021 9:59 AM CDT Height 160 cm (5' 3 ) 04/11/2021 9:59 AM CDT Body Mass Index 34.54 04/11/2021 9:59 AM CDT Plan of Treatment Health Maintenance Due Date Last Done Comments DEXA Bone Density 1950 Hepatitis C Virus (HCV) Screening 1950 TdaP Immunization 1950 Cologuard 02/12/2002 Immunochemical Fecal Occult Blood 02/12/2002 Mammogram 02/12/2002 Respiratory Syncytial Virus (RSV) Immunization (Adult) (1 - Risk 60-74 years 1-dose series) 2012 Zoster Immunization (1 of 2) 05/18/2013 03/23/2013 Pneumococcal Immunization (50+ years) (2 of 2 - PPSV23) 08/20/2021 08/20/2020 Influenza Immunization (#1) 05/01/202405/31, 06/08/2018, 06/22/2017, Additional history exists SARS-COV-2 Immunization ( season) 2024 07/03/2021, 12/20/2020, 11/29/2020 Colonoscopy 04/01/2028 04/01/2018 Colorectal Cancer Screening 04/01/2028 04/01/2018 Pneumococcal Immunization Combined Discontinued 08/20/2020 Hepatitis B Immunization Aged Out No longer eligible based on patient's age to complete this topic Meningococcal Immunization (ACWY) Aged Out No longer eligible based on patient's age to complete this topic Rotavirus Immunization Aged Out No lo nger eligible based on patient's age to complete this topic Procedures Procedure Name Priority Date/Time Associated Diagnosis Comments COLONOSCOPY Routine 04/01/2018 from Last 3 Months or Most Recently Relevant to Health Maintenance Results * COLONOSCOPY (04/01/2018) Humphrey Costello DO PROCEDURE/MINOR SURGICAL ORDERA BLES Final Result from Last 3 Months or Most Recently Relevant to Health Maintenance Insurance MEDICARE C AET[employer] Care Teams Physical Education Teacher Relationship Specialty Start Date End Date Parminder Rojas MD [address] [place] [id number] PCP - General Family Medicine 04/08/18
--- OUTSIDE RECORDS SUMMARY | 2024-09-26 09:27 | XMS_ITS | Referral Summary ---
Author Organization [facility] Address [address] [place] [address] Care Team Providers Care Control Panel Operator Crude Unit Name Role Phone Parminder Rojas MD Primary Care Provider [phone] Yannick Guevara MD Unavailable [phone] Ayde Peña MD Unavailable [phone] Encounters Date Type Department Care Team Description 09/15/2024 [facility]phone [facility] [address] [place] [address] Claudine Odom MA MRI Lumbar Spine 09/14/2024 12:01 PM ICE SKATING TEACHER - 09/14/2024 11:59 PM ICE SKATING TEACHER Hospital Encounter [facility] - [facility] [address] [place] [address] Nicole Brumfield MD Proximal leg weakness; Lumbar disc disease Discharge Disposition: Discharge to home or self care 09/02/2024 6:30 PM ICE SKATING TEACHER - 09/02/2024 11:59 PM ICE SKATING TEACHER Hospital Encounter [facility] [id number] [place] [address] Discharge Disposition: Discharge to home or self care 08/26/2024 5:35 PM ICE SKATING TEACHER Lab [facility] [address] [place] [address] Proximal muscle weakness; Left foot drop 08/26/2024 2:00 PM ICE SKATING TEACHER Office Visit [facility] [address] [facility] 6th [place] [address] [place] [address] Bobby Blanca MD Left foot drop (Primary Dx); Proximal muscle weakness 07/22/2024 [facility] [address], [place] [address] Claudine Odom MA 07/20/2024 [facility] [address] [facility] [address], [place] [address] Claudine Odom MA 07/20/2024 10:15 AM ICE SKATING TEACHER Lab [facility] [address] [facility] [place] [id number] Proximal leg weakness; Disorder of muscle, unspecified 07/20/2024 9:00 AM ICE SKATING TEACHER Office Visit [facility] [address] [address] Nicole Brumfield MD Proximal leg weakness (Primary Dx); Lumbar disc disease; Disorder of muscle, unspecified; Numbness of feet from Last 3 Months Allergies Active Allergy Reactions Criticality Noted Date Comments Amoxicillin Unknown Low 07/20/2024 Ciprofloxacin Unknown Low 07/20/2024 Clopidogrel Nausea And Vomiting Low 02/04/2022 Codeine Nausea & Vomiting Low Hydrocodone Nausea And Vomiting Low 02/04/2022 Levofloxacin Unknown Low 07/20/2024 Lisinopril Unknown Low 07/20/2024 Tramadol Nausea & Vomiting Low 07/20/2024 Medications leflunomide (ARAVA) 20 mg tablet take 1 tablet (20MG) by oral route every day 0 3 Active pramipexole (MIRAPEX) 0.5 mg tablet take 1 tablet by oral route every day [address] (PROTONIX) 40 mg EC tablet take 1 tablet by oral route every day 0 0 4 Active warfarin (COUMADIN) 2 mg tablet take 1 Tablet by oral route every day or as directed 90 1 4 Active Additional Information Patient not taking.Reported on 08/26/2024 sotalol (BETAPACE) 80 mg tablet take 1 tablet by oral every 12 hours 180 4 4 Active potassium chloride ER (KLOR-CON,K-DUR ) 20 mEq CR tablet take 1 tablet by oral route every day with food 60 4 4 Active aspirin (ASPIR-81) 81 mg tablet take 1 tablet by oral route every day 0 0 5 Active Additional Information Patient not taking.Reported on 08/26/2024 furosemide (LASIX) 40 mg tablet TAKE 1 TABLET BY ORAL ROUTE EVERY DAY 90 1 4 Active metoprolol tartrate (LOPRESSOR) 25 mg immediate release tablet Take 1 tablet (25 mg total) by mouth 2 (two) times a day Active famotidine (PEPCID) 20 mg tablet Take 1 tablet (20 mg total) by mouth daily Active magnesium oxide (MAG-OX) 415 mg (250 mg elemental) tablet 400 mg Active fenofibrate (TRIGLIDE) 160 mg tablet Take 1 tablet (160 mg total) by mouth daily Active albuterol HFA (PROVENTIL HFA,VENTOLIN HFA,PROAIR HFA) 90 mcg/actuation inhaler Inhale 2 puffs every 6 (six) hours as needed for wheezing Active losartan (COZAAR) 50 mg tablet Take 1 tablet (50 mg total) by mouth daily Active niacin 100 mg tablet Take 1 tablet (100 mg total) by mouth daily with breakfast Active cholecalciferol (Vitamin D3) 2000 unit tablet Take 1 tablet (2,000 Units total) by mouth daily Active vitamin A 10,000 unit capsule Take 1 capsule (10,000 Units total) by mouth daily Active white petrolatum (bulk)-dilTIAZe m (bulk)Indicatio ns:Anal fissure Diltiazem 2%: Apply pea size amount (2 cm) to anus BID. 60 g 1 Active diphenoxylate-a tropine (LOMOTIL) 2.5-0.025 mg per tablet Take by mouth as needed for diarrhea 1 Active Stiolto Respimat 2.5-2.5 mcg/actuation inhaler 1 Active arformoteroL (BROVANA) 15 mcg/2 mL nebulizer solution USE 1 VIAL IN NEBULIZER DAILY 4 Active pravastatin (PRAVACHOL) 10 mg tablet Take 1 tablet (10 mg total) by mouth daily Active Xarelto 20 mg tablet Take 1 tablet (20 mg total) by mouth daily 4 Active Mounjaro 2.5 mg/0.5 mL pen injector Inject 0.5 mL (2.5 mg total) under the skin once a week 4 Active Praluent Pen 75 mg/mL pen injector Inject 1 mL under the skin every 14 (fourteen) days 4 Active spironolactone (ALDACTONE) 25 mg tablet Take 1 tablet (25 mg total) by mouth daily Active meclizine (ANTIVERT) 25 mg tablet Take 1 tablet (25 mg total) by mouth 3 (three) times a day as needed for dizziness Active prochlorperazin e (COMPAZINE) 10 mg tablet Take 1 tablet (10 mg total) by mouth every 6 (six) hours as needed for nausea or vomiting Active Active Problems Problem Noted Date Diagnosed Date Functional diarrhea 05/23/2021 Anal fissure 02/07/2021 Social History Tobacco Use Types Packs/Day Years Used Date Smoking Tobacco: Never Tobacco Cessation:Counseling Given: No Alcohol Use Standard Drinks/Week Comments Yes 0 (1 standard drink = 0.6 oz pur e alcohol) AUDIT-C Answer Date Recorded Q1: How often do you have a drink containing alc ohol? Monthly or less 07/20/2024 Q2: How many drinks containi ng alcohol do you have on a typical day when you are drinking? 1 or 2 07/20/2024 Q3: How often do you have si x or more drinks on one occasion? Never 07/20/2024 Comments Unknown Sex and Gender Information Value Date Recorded Sex Assigned at Not on file Legal Sex Female 2:00 AM ICE SKATING TEACHER Gender Identity Not on file Sexual Orientation Not on file Last Filed Vital Signs Vital Sign Reading Time Taken Comments Blood Pressure 161/74 08/26/2024 1:13 PM ICE SKATING TEACHER Pulse 63 08/26/2024 1:13 PM ICE SKATING TEACHER Temperature 36.1 ??C (96.9 ??F) 08/06/2021 1:42 PM CS T Respiratory Rate 16 07/20/2024 9:06 AM ICE SKATING TEACHER Oxygen Saturation 92% 07/20/2024 9:06 AM ICE SKATING TEACHER Inhaled Oxygen Concentration - - Weight 81.6 kg (180 lb) 09/14/2024 12:16 PM ICE SKATING TEACHER Height 154.9 cm (5' 1 ) 09/14/2024 12:16 PM ICE SKATING TEACHER Body Mass Index 34.01 09/14/2024 12:16 PM ICE SKATING TEACHER Plan of Treatment Not on file Procedures Procedure Name Priority Date/Time Associated Diagnosis Comments MRI LUMBAR SPINE WO CONTRAST Schedule Routine, Read Routine (OP Routine) 09/14/2024 1:40 PM ICE SKATING TEACHER Proximal leg weakness Lumbar disc disease EGFR Routine 09/02/2024 2:19 PM ICE SKATING TEACHER DIFFERENTIAL AUTO Routine 09/02/2024 2:1 9 PM ICE SKATING TEACHER CREATININE Routine 09/02/2024 2:19 PM ICE SKATING TEACHER HEPATIC FUNCTION PANEL Routine 09/02/2024 2:19 PM ICE SKATING TEACHER CBC WITH AUTO DIFFERENTIAL Routine 09/02/2024 2:19 PM ICE SKATING TEACHER NEUROMUSCULAR SPECIMEN TRACKING OUTPATIENT Routine 08/29/2024 3:43 PM ICE SKATING TEACHER Proximal muscle weakness Left foot drop PATRICIA QUALITATIVE WITH REFLEX TO PATRICIA QUANTITATIVE Routine 08/26/2024 3:43 PM ICE SKATING TEACHER Proximal muscle weakness Left foot drop RICH ANTIBODY EVALUATION WITH REFLEX Routine 08/26/2024 3:43 PM ICE SKATING TEACHER Proximal muscle weakness Left foot drop IMMUNOTYPING Routine 07/20/2024 10:26 AM ICE SKATING TEACHER Proximal leg weakness CREATINE KINASE (CK), TOTAL Routine 07/20/2024 10:26 AM ICE SKATING TEACHER Proximal leg weakness ALDOLASE Routine 07/20/2024 10:26 AM ICE SKATING TEACHER Proximal leg weakness VITAMIN B12 Routine 07/20/2024 10:26 AM ICE SKATING TEACHER Proximal leg weakness FOLATE Routine 07/20/2024 10:26 AM ICE SKATING TEACHER Proximal leg weakness ERYTHROCYTE SEDIMENTATION RATE Routine 07/20/2024 10:26 AM ICE SKATING TEACHER Proximal leg weakness CRP (ACUTE PHASE) Routine 07/20/2024 10: 26 AM ICE SKATING TEACHER Proximal leg weakness PROTEIN ELECTROPHORESIS, WITH REFLEX, SERUM Routine 07/20/2024 10:26 AM ICE SKATING TEACHER Proximal leg weakness COPPER, SERUM Routine 07/20/2024 10:26 AM ICE SKATING TEACHER Proximal leg weakness VITAMIN B1 Routine 07/20/2024 10:26 AM ICE SKATING TEACHER Proximal leg weakness TSH Routine 07/20/2024 10:26 AM ICE SKATING TEACHER Proximal leg weakness Disorder of muscle, unspecified from Last 3 Months Results * MRI Lumbar Spine WO Contrast (09/14/2024 1:40 PM ICE SKATING TEACHER) Anatomical Region Laterality Modality Spine N/A Magnetic Resonan ce 09/14/2024 4:48 PM ICE SKATING TEACHER Addenda Addendum by Kendrick Jenkins MD on 09/14/2024 5:14 PM ICE SKATING TEACHER The Non Critical results were discussed with Nicole Brumfield MD by Cherelle Robles Cellular Phone Repairer on 09/14/2024 at 5:03 ICE SKATING TEACHER Edited by: Cherelle Robles Electronically signed by: Kendrick Jenkins M.D. Impressions 09/14/2024 4:48 PM ICE SKATING TEACHER 1. Advanced multilevel degenerative changes of the lumbar spine as enumerated above with severe central spinal canal narrowing at L2-L3, L3-L4, and L4-L5. There is effacement of the CSF at these levels as well as narrowing of the lateral recesses. 2. Multilevel degenerative facet hypertrophy contributes to varying degrees of neural foraminal narrowing, severe on the right at L5-S1, left at L4-L5 and L3-L4. 3. 8 mm synovial cyst seen on the right at L5-S1 contributes to narrowing of the right lateral recess at this level with abutment of the right-sided traversing nerves. 4. Partially imaged degenerative changes in the lower thoracic spine imaged portions with moderate to severe central spinal canal narrowing at T11-T12. If indicated further evaluation can be made with thoracic spine MRI. Electronically signed by: Kendrick Jenkins M.D. Narrative 09/14/2024 4:48 PM ICE SKATING TEACHER EXAM: MRI LUMBAR SPINE WO CONTRAST INDICATION: L/S-spine canal stenosis leg weakness, prior surgery ?? COMPARISON: None TECHNIQUE/PROTOCOL: Multiplanar multisequence noncontrast MR sequences through the lumbar spine. FINDINGS: Vertebral Bodies: No loss of lumbar vertebral body height. Multilevel degenerative endplate changes, Modic type II-I to L2, L2-L3, L3-L4, and L4-L5. No suspicious marrow replacing lesion. Multiple small vertebral body Schmorl's nodes. Postoperative changes of left L4-L5 laminectomy. Alignment: Straightening of lumbar lordosis. Minimal stepwise retrolisthesis T12-L5. The facet joints are intact. Extradural: 8 mm synovial cyst seen adjacent to the right L5-S1 facet joint with associated narrowing of the right lateral recess and abutment of the traversing right-sided nerve root. Otherwise there are no abnormal extradural fluid collections or masses. Conus: The conus terminates at L2. ??Normal appearance of the cauda equina nerve roots. ?? Intervertebral discs: Multilevel degenerative changes of the lumbar spine, advanced at L2-L5 where there is loss of disc, degenerative endplate changes, and osteophytes. Lumbar level: T10-T11: Disc bulge and posterior osteophytes indent the ventral thecal sac abutting the ventral cord with moderate central spinal canal narrowing. At T11-T12 there is disc bulge and posterior osteophytes in combination with facet hypertrophy contributing to moderate to severe central spinal canal narrowing. Degenerative facet hypertrophy contributes to moderate bilateral neural foraminal narrowing. T12-L1: Mild disc bulge and tiny posterior osteophytes indent the ventral thecal sac without central spinal canal narrowing. Degenerative facet hypertrophy without neural foraminal narrowing. L1-L2: Mild disc bulge without central spinal canal narrowing. Degenerative facet hypertrophy without neural foraminal narrowing. L2-L3: Advanced disc degeneration with marked loss of disc. Posterior osteophytes eccentric to the right indent the ventral thecal sac contributing to severe central spinal canal narrowing with effacement of the CSF. In combination with thickening of ligamentum flavum and facet hypertrophy there is narrowing of the right greater than left lateral recess. Degenerative facet hypertrophy contributes to mild bilateral neural foraminal narrowing. There is a left foraminal/extraforaminal protrusion at this level that abuts the exiting nerve. L3-L4: Advanced disc degeneration with marked loss of disc. Posterior osteophytes with small right subarticular extrusion contributes to severe central spinal canal narrowing and marked narrowing of the right greater than left lateral recess with effacement of the CSF. Degenerative facet hypertrophy contributes to severe left neural foraminal narrowing in part due to disc extension into the left neural foramen. There is moderate right neural foraminal narrowing. L4-L5: Posterior osteophytes and prominent ventral epidural fat at this level in combination with degenerative facet hypertrophy contributes to severe central spinal canal narrowing with effacement of the CSF and severe narrowing of the lateral recesses bilaterally. Advanced degenerative facet hypertrophy contributes to moderate to severe right and severe left neural foraminal narrowing. L5-S1: Disc bulge indents the ventral thecal sac with moderate central spinal canal narrowing. In combination with with the right-sided synovial cyst at this level there is narrowing of the right lateral recess. There is thickening of ligamentum flavum. Advanced degenerative facet hypertrophy contributes to severe right and moderate to severe left neural foraminal narrowing, also in part due to disc extension into the neural foramen. Small right and tiny left-sided facet joint effusion. The imaged sacroiliac joints are intact bilaterally. Paraspinal Soft Tissues: No prevertebral edema or paraspinal collection. There is moderate lower lumbar and sacral posterior paraspinal muscular atrophy and fatty replacement, left greater than right. Visualized Surrounding Organs and Viscera: No acute abnormality. Procedure Note Kendrick Jenkins MD - 09/14/2024 EXAM: MRI LUMBAR SPINE WO CONTRAST INDICATION: L/S-spine canal stenosis leg weakness, prior surgery COMPARISON: None TECHNIQUE/PROTOCOL: Multiplanar multisequence noncontrast MR sequences through the lumbar spine. FINDINGS: Vertebral Bodies: No loss of lumbar vertebral body height. Multilevel degenerative endplate changes, Modic type II-I to L2, L2-L3, L3-L4, and L4-L5. No suspicious marrow replacing lesion. Multiple small vertebral body Schmorl's nodes. Postoperative changes of left L4-L5 laminectomy. Alignment: Straightening of lumbar lordosis. Minimal stepwise retrolisthesis T12-L5. The facet joints are intact. Extradural: 8 mm synovial cyst seen adjacent to the right L5-S1 facet joint with associated narrowing of the right lateral recess and abutment of the traversing right-sided nerve root. Otherwise there are no abnormal extradural fluid collections or masses. Conus: The conus terminates at L2. Normal appearance of the cauda equina nerve roots. Intervertebral discs: Multilevel degenerative changes of the lumbar spine, advanced at L2-L5 where there is loss of disc, degenerative endplate changes, and osteophytes. Lumbar level: T10-T11: Disc bulge and posterior osteophytes indent the ventral thecal sac abutting the ventral cord with moderate central spinal canal narrowing. At T11-T12 there is disc bulge and posterior osteophytes in combination with facet hypertrophy contributing to moderate to severe central spinal canal narrowing. Degenerative facet hypertrophy contributes to moderate bilateral neural foraminal narrowing. T12-L1: Mild disc bulge and tiny posterior osteophytes indent the ventral thecal sac without central spinal canal narrowing. Degenerative facet hypertrophy without neural foraminal narrowing. L1-L2: Mild disc bulge without central spinal canal narrowing. Degenerative facet hypertrophy without neural foraminal narrowing. L2-L3: Advanced disc degeneration with marked loss of disc. Posterior osteophytes eccentric to the right indent the ventral thecal sac contributing to severe central spinal canal narrowing with effacement of the CSF. In combination with thickening of ligamentum flavum and facet hypertrophy there is narrowing of the right greater than left lateral recess. Degenerative facet hypertrophy contributes to mild bilateral neural foraminal narrowing. There is a left foraminal/extraforaminal protrusion at this level that abuts the exiting nerve. L3-L4: Advanced disc degeneration with marked loss of disc. Posterior osteophytes with small right subarticular extrusion contributes to severe central spinal canal narrowing and marked narrowing of the right greater than left lateral recess with effacement of the CSF. Degenerative facet hypertrophy contributes to severe left neural foraminal narrowing in part due to disc extension into the left neural foramen. There is moderate right neural foraminal narrowing. L4-L5: Posterior osteophytes and prominent ventral epidural fat at this level in combination with degenerative facet hypertrophy contributes to severe central spinal canal narrowing with effacement of the CSF and severe narrowing of the lateral recesses bilaterally. Advanced degenerative facet hypertrophy contributes to moderate to severe right and severe left neural foraminal narrowing. L5-S1: Disc bulge indents the ventral thecal sac with moderate central spinal canal narrowing. In combination with with the right-sided synovial cyst at this level there is narrowing of the right lateral recess. There is thickening of ligamentum flavum. Advanced degenerative facet hypertrophy contributes to severe right and moderate to severe left neural foraminal narrowing, also in part due to disc extension into the neural foramen. Small right and tiny left-sided facet joint effusion. The imaged sacroiliac joints are intact bilaterally. Paraspinal Soft Tissues: No prevertebral edema or paraspinal collection. There is moderate lower lumbar and sacral posterior paraspinal muscular atrophy and fatty replacement, left greater than right. Visualized Surrounding Organs and Viscera: No acute abnormality. IMPRESSION: 1. Advanced multilevel degenerative changes of the lumbar spine as enumerated above with severe central spinal canal narrowing at L2-L3, L3-L4, and L4-L5. There is effacement of the CSF at these levels as well as narrowing of the lateral recesses. 2. Multilevel degenerative facet hypertrophy contributes to varying degrees of neural foraminal narrowing, severe on the right at L5-S1, left at L4-L5 and L3-L4. 3. 8 mm synovial cyst seen on the right at L5-S1 contributes to narrowing of the right lateral recess at this level with abutment of the right-sided traversing nerves. 4. Partially imaged degenerative changes in the lower thoracic spine imaged portions with moderate to severe central spinal canal narrowing at T11-T12. If indicated further evaluation can be made with thoracic spine MRI. Electronically signed by: Kendrick Jenkins M.D. Nicole Brumfield MD [facility] MRI PROCEDURES Edited Res ult - Final * eGFR (09/02/2024 2:19 PM ICE SKATING TEACHER) eGFR >90 >=60 mL/min/1. 73 m2 Comment: Interpretive Data Reference Interval Normal ?>/= 90 mL/min/1.73m2 Mildly decreased* ? 60 - 89 mL/min/1.73m2 Mildly to moderately decreased ?45 - 59 mL/min/1.73m2 Moderately to severely decreased ??30 - 44 mL/min/1.73m2 Severely decreased ?15 - 29 mL/min/1.73m2 Kidney Failure ?< 15 ??mL/min/1.73m2 *Relative to young adult level Estimated glomerular [...] Current interpretive data was last reviewed 2021. Blood 09/02/2024 2:19 PM ICE SKATING TEACHER 09/02/2024 7:37 PM ICE SKATING TEACHER us Filippo Carpenter MD LAB BLOOD ORDERABLES Fin al Result [facility] [address] Department [place] [address] * Differential, auto (09/02/2024 2:19 PM ICE SKATING TEACHER) Neutrophil abs 4.5 1.5 - 6.5 K/cumm Imm gran abs 0.0 0.0 - 0.1 K/cumm [facility] Lymphocyte abs 1.3 0.8 - 3.3 K/cumm [facility] Monocyte abs 0.8 0.2 - 0.8 K/cumm [facility] Eosinophil abs 0.1 0.0 - 0.5 K/cumm [facility] Basophil abs 0.1 0.0 - 0.1 K/cumm [facility] Neutrophil pct 65.5 % [facility] Comment: Interpretive Data Percent cell count reference ranges are not reported, since discordance with absolute values may lead to misinterpretation of CBC data. Current Interpretive Data was last revised on 2017. Imm gran pct 0.4 % [facility] Comment: Interpretive Data Percent cell count reference ranges are not reported, since discordance with absolute values may lead to misinterpretation of CBC data. Current Interpretive Data was last revised on 2017. Lymphocyte pct 19.0 % [facility] Comment: Interpretive Data Percent cell count reference ranges are not reported, since discordance with absolute values may lead to misinterpretation of CBC data. Current Interpretive Data was last revised on 2017. Monocyte pct 12.1 % [facility] Comment: Interpretive Data Percent cell count reference ranges are not reported, since discordance with absolute values may lead to misinterpretation of CBC data. Current Interpretive Data was last revised on 2017. Eosinophil pct 2.1 % [facility] Comment: Interpretive Data Percent cell count reference ranges are not reported, since discordance with absolute values may lead to misinterpretation of CBC data. Current Interpretive Data was last revised on 2017. Basophil pct 0.9 % [facility] Comment: Interpretive Data Percent cell count reference ranges are not reported, since discordance with absolute values may lead to misinterpretation of CBC data. Current Interpretive Data was last revised on 2017. Blood 09/02/2024 2:19 PM ICE SKATING TEACHER 09/02/2024 6:51 PM ICE SKATING TEACHER us Filippo Carpenter MD LAB BLOOD ORDERABLES Fin al Result [facility] [address] Department [place] [address] * (ABNORMAL) CBC with auto differential (09/02/2024 2:19 PM ICE SKATING TEACHER) WBC 6.8 3.8 - 9.9 K/cumm Hgb 13.9 11.9 - 15.5 g/dL [facility] Hct 43.6 35.6 - 45.5 % [facility] Plt 259 150 - 400 K/cumm [facility] MPV 12.1 9.1 - 12.3 fL [facility] RBC 4.61 3.90 - 5.20 M/cumm [facility] MCV 94.6 81.3 - 96.4 fL [facility] MCH 30.2 27.1 - 33.3 pg [facility] MCHC 31.9(L) 32.3 - 35.7 g/dL [facility] RDW CV 16.0(H) 11.1 - 14.9 % [facility] RDW SD 54.6(H) 35.7 - 48.1 fL [facility] NRBC abs 0.00 0.00 - 0.01 K/cumm [facility] Blood 09/02/2024 2:19 PM ICE SKATING TEACHER 09/02/2024 6:51 PM ICE SKATING TEACHER Filippo Carpenter MD LAB BLOOD ORDERABLES Fin al Result Performing Organization Address [facility] Co de Phone Number [facility] [address] [place] [address] * Creatinine (09/02/2024 2:19 PM ICE SKATING TEACHER) Creatinine 0.68 0.60 - 1.10 mg/dL Blood 09/02/2024 2:19 PM ICE SKATING TEACHER 09/02/2024 6:51 PM ICE SKATING TEACHER Filippo Carpenter MD LAB BLOOD ORDERABLES Fin al Result Performing Organization Address [facility] de Phone Number [facility] [address] [place] [address] * (ABNORMAL) Hepatic function panel (09/02/2024 2:19 PM ICE SKATING TEACHER) Bilirubin, total 0.4 0.1 - 1.2 mg/dL Bilirubin, direct 0.2 0.1 - 0.3 mg/dL [facility] Protein, pl 6.2(L) 6.5 - 8.5 g/dL [facility] Albumin 4.1 3.5 - 5.0 g/dL [facility] Alk phos 50 40 - 130 Units/L [facility] ALT 16 7 - 45 Units/L [facility] AST 18 10 - 45 Units/L [facility] Blood 09/02/2024 2:19 PM ICE SKATING TEACHER 09/02/2024 6:51 PM ICE SKATING TEACHER Filippo Carpenter MD LAB BLOOD ORDERABLES Fin al Result Performing Organization Address [facility] Co de Phone Number [facility] [address] [place] [address] * Neuromuscular Specimen Tracking Outpatient Blood (08/29/2024 3:43 PM ICE SKATING TEACHER) Blood Narrative [facility] - 08/29/2024 3:43 PM ICE SKATING TEACHER Blood draw complete Bobby Blanca MD LAB BLOOD ORDERABLES Tawnya l Result Performing Organization Address [facility] Co de Phone Number [facility] [place] [address] * PATRICIA ab ql w/rflx to PATRICIA qn (08/26/2024 3:43 PM ICE SKATING TEACHER) PATRICIA Negative Comment: Interpretive Data Normal range for PATRICIA Qualitative Antibody = Negative. 1. PATRICIA is performed using indirect immunofluorescence against HEp-2 cells 2. PATRICIA titers are performed on all positive qualitative results. 3. A significantly positive PATRICIA result is defined as a positive nuclear fluorescence at a titer of 1:80 or greater. 4. 15% of normal people above age 65 have significantly positive PATRICIA results. ??5% or less of normal people age 65 or under have significantly positive PATRICIA results. Current interpretive data was last revised on 2020. Blood 08/26/2024 3:43 PM ICE SKATING TEACHER 08/26/2024 4:33 PM ICE SKATING TEACHER Bobby Blanca MD LAB BLOOD ORDERABLES Tawnya l Result Performing Organization Address [facility] Co de Phone Number [facility] [place] [address] * RICH ab eval w/reflex (08/26/2024 3:43 PM ICE SKATING TEACHER) Pathologist [facility] RICH ab Negative Negative Comment: Interpretive Data Positive Screens will be reflexed to specific testing for Antibodies against the following antigens: Elba-1 Ab, RECORDS OFFICER Ab, Scl-70 Ab, Brennan Ab, SS-A/Ro Ab, and SS- B/La Ab. Further testing for dsDNA, Centromere, or Ribosomal P antibodies is suggested in patient with a positive screen and negative specific antibodies. Current interpretive data was last revised on 2023. Blood 08/26/2024 3:43 PM ICE SKATING TEACHER 08/26/2024 4:33 PM ICE SKATING TEACHER Bobby Blanca MD LAB BLOOD ORDERABLES Tawnya l Result Performing Organization Address [facility]/ZIP Co de Phone Number [facility] Department [place] [address] * Immunotyping, serum (07/20/2024 10:26 AM ICE SKATING TEACHER) [facility] Immunosubtraction See Comment Comment:IMMUNOTYPING INTERPR ETATION: No Monoclonal Protein Detected Blood 07/20/2024 10:2 6 AM ICE SKATING TEACHER 07/20/2024 12:07 PM ICE SKATING TEACHER Narrative [facility] - 07/21/2024 11:06 AM ICE SKATING TEACHER Reflex Immunotyping, Ser Nicole Brumfield MD LAB BLOOD ORDERABLES Final Re sult [facility] [address] Department [place] [address] * Copper, serum (07/20/2024 10:26 AM ICE SKATING TEACHER) [facility] Copper 113 77 - 206 mcg/dL [facility] Comment: ADDITIONAL INFORMATION This test was developed and its performance characteristics determined by [facility] in a manner consistent with CLIA requirements. This test has not been cleared or approved by the U.S. Food and Drug Administration. Test Performed by: [facility] [address] [place] [address] License Registration Examiner: Alex Schultz Ph.D.; CLIA# [id number] Blood 07/20/2024 10:2 6 AM ICE SKATING TEACHER 07/20/2024 12:07 PM ICE SKATING TEACHER Nicole Brumfield MD LAB BLOOD ORDERABLES Final Re sult Performing Organization Address [facility]/ZIP Co de Phone Number [facility] [address] [facility] [employer] [place], [place] [id number] [place] [facility] * Aldolase (07/20/2024 10:26 AM ICE SKATING TEACHER) Aldolase 3.6 0.1 - 8.0 Units/L Comment:Testing performed by : [facility], [address] [place]., [address] Blood 07/20/2024 10:2 6 AM ICE SKATING TEACHER 07/20/2024 7:56 PM ICE SKATING TEACHER Nicole Brumfield MD LAB BLOOD ORDERABLES Final Re sult Performing Organization Address [facility] Co de Phone Number [facility] [address] [facility] [place] [address] * Erythrocyte sedimentation rate (07/20/2024 10:26 AM ICE SKATING TEACHER) Erythrocyte sedimentation rate 11 1 - 30 mm/hr Blood 07/20/2024 10:2 6 AM ICE SKATING TEACHER 07/20/2024 12:08 PM ICE SKATING TEACHER Nicole Brumfield MD LAB BLOOD ORDERABLES Final Re sult [facility] [address] [facility] [place] [address] * CRP (acute phase) (07/20/2024 10:26 AM ICE SKATING TEACHER) Pathologist [facility] CRP 3.2 <=10.0 mg/L Blood 07/20/2024 10:2 6 AM ICE SKATING TEACHER 07/20/2024 12:08 PM ICE SKATING TEACHER Nicole Brumfield MD LAB BLOOD ORDERABLES Edited [facility] Performing Organization Address [facility] Co de Phone Number [facility] [address] [place] [address] * TSH (07/20/2024 10:26 AM ICE SKATING TEACHER) Pathologist [facility] Thyroid Stimulating Hormone 1.87 0.30 - 4.20 mcIUnit/mL Blood 07/20/2024 10:2 6 AM ICE SKATING TEACHER 07/20/2024 12:08 PM ICE SKATING TEACHER Nicole Brumfield MD LAB BLOOD ORDERABLES Edited [facility] Performing Organization Address [facility] Co de Phone Number [facility] [address] [place] [address] * Vitamin B1 (07/20/2024 10:26 AM ICE SKATING TEACHER) Pathologist [facility] Thiamine (Vit B1) 122 70 - 180 nmol/L [facility] Lab Comment: ADDITIONAL INFORMATION This test was developed and its performance characteristics determined by [facility] in a manner consistent with CLIA requirements. This test has not been cleared or approved by the U.S. Food and Drug Administration. Test Performed by: [facility] - [address] [address] License Registration Examiner: Alex Schultz Ph.D.; CLIA# [id number] Blood 07/20/2024 10:2 6 AM ICE SKATING TEACHER 07/20/2024 4:41 PM ICE SKATING TEACHER Nicole Brumfield MD LAB BLOOD ORDERABLES Final Re sult Performing Organization Address [facility] Co de Phone Number [facility] [address] [place] [address] [facility] * Protein electrophoresis with reflex, serum (07/20/2024 10:26 AM ICE SKATING TEACHER) Pathologist [facility] Protein, sr 6.2 6.2 - 8.2 g/dL Albumin 3.6 3.2 - 5.0 g/dL [facility] Alpha-1 globulin 0.3 0.2 - 0.4 g/dL [facility] Alpha-2 globulin 1.0 0.5 - 1.0 g/dL [facility] Beta-1 globulin 0.4 0.3 - 0.6 g/dL [facility] Beta-2 globulin 0.3 0.2 - 0.6 g/dL [facility] Gamma globulin 0.5 0.5 - 1.7 g/dL [facility] SPEP interp See Comment [facility] Comment:SPEP INTERPRETATION: No apparent monoclonal protein. Decreased gamma globulins. Immunotyping See Immunotyping Results [facility] Blood 07/20/2024 10:2 6 AM ICE SKATING TEACHER 07/20/2024 12:07 PM ICE SKATING TEACHER Nicole Brumfield MD LAB BLOOD ORDERABLES Final Re sult Performing Organization Address [facility] Co de Phone Number [facility] [address] [place] [address] * Folate (07/20/2024 10:26 AM ICE SKATING TEACHER) Pathologist [facility] Folic acid 10.7 >=5.0 ng/mL Blood 07/20/2024 10:2 6 AM ICE SKATING TEACHER 07/20/2024 12:08 PM ICE SKATING TEACHER Nicole Brumfield MD LAB BLOOD ORDERABLES Edited R esult - Final Performing Organization Address City/[facility] Co de Phone Number [facility] [address] [facility] [employer] [place], [place] [id number] * Vitamin B12 (07/20/2024 10:26 AM ICE SKATING TEACHER) Vitamin B12 551 230 - 1,250 pg/mL Blood 07/20/2024 10:2 6 AM ICE SKATING TEACHER 07/20/2024 12:08 PM ICE SKATING TEACHER Nicole Brumfield MD LAB BLOOD ORDERABLES Edited R esult - Final Performing Organization Address [facility]/ZIP Co de Phone Number [facility] [address] [facility] [place] [address] * Creatine kinase (CK), total (07/20/2024 10:26 AM ICE SKATING TEACHER) CK 33 30 - 200 Units/L Blood 07/20/2024 10:2 6 AM ICE SKATING TEACHER 07/20/2024 12:08 PM ICE SKATING TEACHER Nicole Brumfield MD LAB BLOOD ORDERABLES Final Re sult Performing Organization Address [facility] Co de Phone Number [facility] [address] [facility] [employer] [place], [place] [phone] from Last 3 Months Insurance [employer] PPO [employer] P[employer] Care Teams Control Panel Operator Crude Unit Relationship Specialty Start Date End Date Parminder Rojas MD PCP - General 01/19/14 Yannick Guevara MD [phone] [place] [address] Surgeon Colon and Rectal Surgery 02/07/21 Ayde Peña MD [address] [place] [address] Referring Physician Family Medicine 02/07/21
--- OUTSIDE RECORDS SUMMARY | 2024-09-26 09:27 | XMS_ITS | Encounter Summary ---
Author Organization [facility] Health Address [address] [address] Care Team Providers Care Linker Up Name Role Phone Filippo Carpenter MD Unavailable [phone] Encounter Details Date Type Department Care Team (Late st Contact Info) Description 01/27/2019 Lab Requisition [facility] [address] [facility] [place] [address] Bettina Espino, DO [address] [facility] [address] [place] [address] Social History Tobacco Use Types Packs/Day Years [...] Priority Date/Time Associated Diagnosis Comments DERMATOPATHOLOGY Routine 01/26/2019 12:0 0 AM CDT documented in this encounter Results * DERMATOPATHOLOGY (01/26/2019 12:00 AM CDT) Case Report Dermatopathology Report ? Case: [id number] ? Authorizing Provider: ??Bettina Espino, DO ?? Collected: ? 01/26/2019 12:00 AM ? Pathologist: ? Maura James MD ? Received: ?01/27/2019 10:42 AM ? Specimen: ?Skin, left chest ? 12:24 PM CDT DERMATOPATHOLOGY LABORATORY Final Diagnosis Specimen A. SKIN, left chest: VERRUCA VULGARIS (B07.8) 12:24 PM CDT DERMATOPATHOLOGY LABORATORY Clinical History R/O ISK vs VV R/O SCC, non-healing. 12:24 PM CDT DERMATOPATHOLOGY LABORATORY Gross Description Specimen A: Received is one formalin filled container labeled with the patient's name and designated left chest. The specimen consists of a shave measuring [id number]. Jar 0. 12:24 PM CDT DERMATOPATHOLOGY LABORATORY Microscopic Description Specimen A. SKIN, left chest: There is digitated epidermal hyperplasia, hypergranulosis, vacuolated granular layer cells, and compact hyperorthokeratosis . 12:24 PM CDT DERMATOPATHOLOGY LABORATORY Disclaimer An external and internal positive and negative controls are appropriate for the histochemical, immunohistochemical and immunofluorescence stain(s) in this case (if any), except where stated explicitly. The performance characteristics of the stain(s) cited in this report were developed and its performance characteristic determined by the Dermatopathology Laboratory at [facility], directed by Dr. Krys Villagran. These tests need not be, and therefore are not, approved by the [place] Food and Drug Administration. The tests are used for clinical purposes. Billing Codes Specimen Charges Stain Charges 86079 1 9 12:24 PM CDT DERMATOPATHOLOGY LABORATORY Embedded Images 9 12:24 PM CDT DERMATOPATHOLOGY LABORATORY Pathology/Cytolog y TISSUE SPECIMEN FROM SKIN / Unknown 01/26/2019 01/27/2019 10:42 AM CDT Bettina Espino DO LAB - PATHOLOGY/C YTOLOGY ORDERABLES DERMATOPATHOLOGY LABORATORY [facility] - Department of Dermatology [facility] [facility], 5th Floor Lab B [address] [phone] documented in this encounter Visit Diagnoses Not on filedocumented in this encounter Care Teams Linker Up Relationship Specialty Start Date End Date Filippo Carpenter MD Physician Rheumatology 08/10/11 documented as of this encounter
--- OUTSIDE RECORDS SUMMARY | 2024-09-26 09:27 | XMS_ITS | Referral Summary ---
Author Organization [facility] Address [address] [place] [address] Care Team Providers Care Pelletizer Name Role Phone Max Carpenter MD Unavailable [phone] Source Comments [facility],non-owned Affiliates and Associated Physician Practices is amultiple site organization consisting of ambulatory clinics and hospital sitesin [place], [place], [place] and [place]. This disclosure is being madepursuant to the Care Everywhere program and may not contain all information available regarding this patient. Last updated 18.[facility] Allergies Active Allergy Reactions Criticality Noted Date [...] Comments Blood Pressure 134/68 07/22/2011 4:17 PM WOOL AND PELT GRADER Pulse 81 07/22/2011 4:17 PM WOOL AND PELT GRADER Temperature 36.9 ??C (98.5 ??F) 07/22/2011 4:17 PM CS T Respiratory Rate 18 07/22/2011 4:17 PM WOOL AND PELT GRADER Oxygen Saturation 96% 07/22/2011 4:17 PM WOOL AND PELT GRADER Inhaled Oxygen Concentration - - Weight 104.3 kg (230 lb) 07/22/2011 6:45 AM WOOL AND PELT GRADER Height 160 cm (5' 3 ) 07/22/2011 6:45 AM WOOL AND PELT GRADER Body Mass Index 40.74 07/22/2011 6:45 AM WOOL AND PELT GRADER Plan of Treatment Not on file Advance Directives * FULL RESUSCITATION (Latest Code Status on File) Date Activated Date Inactivated Comments 07/22/2011 12:27 PM 07/23/2011 6:58 AM Care Teams Pelletizer Relationship Specialty Start Date End Date Max Carpenter MD Physician Rheumatology 08/10/11
--- OUTSIDE RECORDS SUMMARY | 2024-09-26 09:27 | XMS_ITS ---
Author Organization [facility] almita Address [address] [place] [address] Care Team Providers Care Tree Planter Name Role Phone Sammie RONDON, Parminder Primary Care Provider Unavail able Filippo Jenkins Unavailable [phone] Allergies Allergen (clinical drug ingredient) Drug/Non Drug Allergy documented on EMR Reaction Allergy Type Onset Date Status Amoxicillin ER Unknown Drug Allergy Ac tive codeine Codeine Unknown Drug Allergy 11/05/2004 Active Results Component Value Reference Range Notes Hep Func Panel Reviewed date:05/25/2024 06:15:44 AM Interpretation: Performing Lab:[facility] , [address] [place] [address]. [facility] [address] Notes/Report: Total Bilirubin 0.5 0.1-1.2 mg/dL Bilirubin, Direct 0.2 0.1-0.3 mg/dL Plasma Total Protein 6.8 6.5-8.5 g/dL Albumin 4.1 3.5-5.0 g/dL Alkaline Phosphatase 58 40-130 Units/L ALT 11 7-45 Units/L AST 16 10-45 Units/L Creatinine Reviewed date:05/25/2024 06:16:23 AM Interpretation: Performing Lab:[facility] , [address] [place] [address]. [place] [address] Notes/Report: Creatinine 0.80 0.60-1.10 mg/dL CBC w auto diff Reviewed date:05/25/2024 06:19:32 AM Interpretation: Performing Lab:[facility] , [address] [place] [address]. [place] [address] Notes/Report: WBC 7.1 3.8-9.9 K/cumm Hgb 13.4 11.9-15.5 g/dL Hct 44.7 35.6-45.5 % Platelet Ct 271 150-400 K/cumm MPV 12.6 9.1-12.3 fL RBC 4.84 3.90-5.20 M/cumm MCV 92.4 81.3-96.4 fL MCH 27.7 27.1-33.3 pg MCHC 30.0 32.3-35.7 g/dL RDW CV 16.7 11.1-14.9 % RDW SD 55.3 35.7-48.1 fL NRBC Abs Auto 0.00 0.00-0.01 K/cumm REASON FOR VISIT 3 month f/u Medications Medication SIG (Take, Route, Frequency, Duration) Notes Start Date End Date Status Mounjaro 2.5 MG/0.5ML INJECT 2.5 MG UNDE R THE SKIN WEEKLY FOR 4 WEEKS Subcutaneous for 28 Days Active Proventil HFA 108 (90 Base) MCG/ACT inhale 1 puff (90 mcg) by inhalation route every 6 hours as needed Inhalation 4 Not-Taking Leflunomide 20 MG TAKE 1 TABLET BY KEITH TH EVERY DAY for 90 Active Vitamin D (Ergocalciferol) 29674 UNIT Oral Active Furosemide 40 MG take 1 tablet (40 mg ) by oral route once daily Oral 1 Active Metoprolol Tartrate 25 MG take 1 tablet (25 mg) by oral route 2 times per day Oral 2 Active Praluent 150 MG/ML inject 1 milliliter (150 mg) by subcutaneous route every 2 weeks in the abdomen, thigh, or upper arm rotating injection sites Subcutaneous [id number]-83 Active Sotalol HCl 80 MG TAKE 1 TABLET BY ORA L ROUTE 2 TIMES EVERY DAY Oral 01/25/2019 Active Pramipexole Dihydrochloride 0.5 MG take 1 tablet (0.5 mg) by oral route 2-3 hours before bedtime Oral 0 Active Xarelto 20 MG take 1 tablet (20 mg ) by oral route once daily with the evening meal Oral 1 Active Pravastatin Sodium 10 MG take 1 tablet ( 10 mg) by oral route once daily at bedtime Oral 1 Active Meclizine HCl 25 MG take 1 tablet (25 mg ) by oral route once daily Oral 1 Active Lomotil 2.5-0.025 MG take 2 tablets (5 m g) by oral route once daily Oral as needed Active Potassium Chloride ER 20 MEQ take 1 tablet (20 meq) by oral route 2 times per day with food Oral 2 Active Pantoprazole Sodium 40 MG take 1 tablet (40 mg) by oral route once daily Oral 1 Active Stiolto Respimat 2.5-2.5 MCG/ACT inhale 2 puffs by inhalation route once daily at the same time each day Inhalation 1 Active Problems Problem Type SNOMED Code ICD Code Onset Dates Problem Status W/U Status Risk Notes Problem 857314563 Other specified rheumatoid arthritis, 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 Vital Signs Blood pressure systolic 140 mm Hg 05/24/20 Blood pressure diastolic 90 mm Hg 024 Heart Rate 107 /min 05/24/2024 Height 63 in 05/24/2024 Oximetry 88 % 05/24/2024 Encounters Encounter Location Date Provider Diagnosis [facility] [address] [place] [address] 05/24/2024 Filippo Jenkins Other senior living (current) drug therapy Z79.899 and Other specified rheumatoid arthritis, 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 Assessments Encounter Date Diagnosis (ICD Code) Assessment Notes Treatment Notes Treatment Clinical Notes Section Notes 05/24/2024 Other senior living (current) drug therapy (ICD-10 - Z79.899) 05/24/2024 Other specified rheumatoid arthritis, multiple sites (ICD-10 - M06.89) Plan Of Treatment Next Appt Details Follow Up: 3 Months, Reason: Provider Name:Filippo sylvester, 12/02/2024 11:00:00 AM, [address], [address], [place], [address], Progress Notes * Laura CLIFFORD ADOB:[birth year] (74 yo F)Acc No.[id number]:05/24/2024 Progress Notes Patient:?Laura CLIFFORD Provider:?Filippo Jenkins MD :1950???Age:74 Y???Sex:Female D ate:05/24/2024 Address:[address] [place] [address], [facility] Pcp:Parminder Cochran MD Subjective: * Chief Complaints: * ???3 month f/u * HPI: ???Advance Care Planning:? No acute joint swelling. No significant AM stiffness, gelling. No significant rash. No significant bruises. No cough. No SOB. No CP. No F/C/S. No major GI upset. Bowels working. Energy OK. Sleep OK. Tolerates meds. Wt. stable. Appetite stable.In WC today. Some fluid retention at ankles. * ROS:?Energy OK. Sleep OK . * Medical History:? * Surgical History:? * Hospitalization/Major Diagno stic Procedure:? * Family History:?Migrated Fam shruthi History: * Denies Family History .? 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 * Medications:?TakingFurosemid e 40 MG Tablet take 1 tablet (40 mg) by oral route once daily Oral 1 Stiolto Respimat 2.5-2.5 MCG/ACT Aerosol Solution inhale 2 puffs by inhalation route once daily at the same time each day Inhalation 1 Pantoprazole Sodium 40 MG Tablet Delayed Release take 1 tablet (40 mg) by oral route once daily Oral 1 Potassium Chloride ER 20 MEQ Tablet Extended Release take 1 tablet (20 meq) by oral route 2 times per day with food Oral 2 Lomotil 2.5-0.025 MG Tablet take 2 tablets (5 mg) by oral route once daily Oral as needed Meclizine HCl 25 MG Tablet take 1 tablet (25 mg) by oral route once daily Oral 1 Pravastatin Sodium 10 MG Tablet take 1 tablet (10 mg) by oral route once daily at bedtime Oral 1 Praluent 150 MG/ML Solution Auto-injector inject 1 milliliter (150 mg) by subcutaneous route every 2 weeks in the abdomen, thigh, or upper arm rotating injection sites Subcutaneous [id number]-32 Metoprolol Tartrate 25 MG Tablet take 1 tablet (25 mg) by oral route 2 times per day Oral 2 Xarelto 20 MG Tablet take 1 tablet (20 mg) by oral route once daily with the evening meal Oral 1 Pramipexole Dihydrochloride 0.5 MG Tablet take 1 tablet (0.5 mg) by oral route 2-3 hours before bedtime Oral 0 Sotalol HCl 80 MG Tablet TAKE 1 TABLET BY ORAL ROUTE 2 TIMES EVERY DAY Oral Vitamin D (Ergocalciferol) 66440 UNIT Capsule Oral Leflunomide 20 MG Tablet TAKE 1 TABLET BY MOUTH EVERY DAY Mounjaro 2.5 MG/0.5ML Solution Pen-injector INJECT 2.5 MG UNDER THE SKIN WEEKLY FOR 4 WEEKS Subcutaneous Taking Furosemide 40 MG Tablet take 1 tablet (40 mg) by oral route once daily Oral 1 Taking Stiolto Respimat 2.5-2.5 MCG/ACT Aerosol Solution inhale 2 puffs by inhalation route once daily at the same time each day Inhalation 1 Taking Pantoprazole Sodium 40 MG Tablet Delayed Release take 1 tablet (40 mg) by oral route once daily Oral 1 Taking Potassium Chloride ER 20 MEQ Tablet Extended Release take 1 tablet (20 meq) by oral route 2 times per day with food Oral 2 Taking Lomotil 2.5-0.025 MG Tablet take 2 tablets (5 mg) by oral route once daily Oral as needed Taking Meclizine HCl 25 MG Tablet take 1 tablet (25 mg) by oral route once daily Oral 1 Taking Pravastatin Sodium 10 MG Tablet take 1 tablet (10 mg) by oral route once daily at bedtime Oral 1 Taking Praluent 150 MG/ML Solution Auto-injector inject 1 milliliter (150 mg) by subcutaneous route every 2 weeks in the abdomen, thigh, or upper arm rotating injection sites Subcutaneous [id number]-24 Taking Metoprolol Tartrate 25 MG Tablet take 1 tablet (25 mg) by oral route 2 times per day Oral 2 Taking Xarelto 20 MG Tablet take 1 tablet (20 mg) by oral route once daily with the evening meal Oral 1 Taking Pramipexole Dihydrochloride 0.5 MG Tablet take 1 tablet (0.5 mg) by oral route 2-3 hours before bedtime Oral 0 Taking Sotalol HCl 80 MG Tablet TAKE 1 TABLET BY ORAL ROUTE 2 TIMES EVERY DAY Oral Taking Vitamin D (Ergocalciferol) 96881 UNIT Capsule Oral Taking Leflunomide 20 MG Tablet TAKE 1 TABLET BY MOUTH EVERY DAY Taking Mounjaro 2.5 MG/0.5ML Solution Pen-injector INJECT 2.5 MG UNDER THE SKIN WEEKLY FOR 4 WEEKS Subcutaneous Not-TakingProventil HFA 108 (90 Base) MCG/ACT Aerosol Solution inhale 1 puff (90 mcg) by inhalation route every 6 hours as needed Inhalation 4 Not- Taking Proventil HFA 108 (90 Base) MCG/ACT Aerosol Solution inhale 1 puff (90 mcg) by inhalation route every 6 hours as needed Inhalation 4 * Allergies:?Codeine: Allergy - Onset Date 11/05/2004Amoxicillin ER Objective: * Vitals:?BP:140/90mm Hg, HR:1 07/min, Oxygen sat %:88%, Ht:63in. * Examination: ???General Examination: ???Physical Examination Constitutional Appearance : well nourished, alert, in no acute distress Head and Face/Head : NC/AT Inspection : normocephalic, atraumatic Eyes/Conjunctivae : conjunctiva normal Sclerae : sclera white Psychiatric/Judgment and Insight : judgment and insight intact Mood and Affect : mood normal, affect appropriate Cervical Spine: normal curvatures Right Upper Extremity Hand : NS Left Upper Extremity Hand : NS Gait: wc No rash. Assessment: * Assessment: 1.?Other specified rheumatoi d arthritis, multiple sites - M06.89 (Primary)???2.?Other medical terminologist (current) drug therapy - Z79.899??? Plan: * Treatment: 2.?Other medical terminologist (current) drug therapy?LAB: Hep Func Panel ?LAB: Creatinine ?LAB: CBC w auto diff * Procedure Codes:?G2211 Compl ex e/m visit add on * Follow Up:?3 Months * Billing Information: * Visit Code:? 86587 Office Visit, Est Pt., Level 4. * Procedure Codes:? G2211 Complex e/m visit add on. * Sign off status: Completed true * Provider:?Filippo Jenkins MD Date:? 05/24/2024 Generated for Elaine multani/Sakshi/eTransmitting on:?09/26/2024 09:26 AM AQUACULTURE DIRECTOR History and Physical Notes * Examination Category Sub-Category Detail Notes Category Not es General Examination Physical Examination Constitutional Appearance : well nourished, alert, in no acute distress Head and Face/Head : NC/AT Inspection : normocephalic, atraumatic Eyes/Conjunctivae : conjunctiva normal Sclerae : sclera white Psychiatric/Judgment and Insight : judgment and insight intact Mood and Affect : mood normal, affect appropriate Cervical Spine: normal curvatures Right Upper Extremity Hand : NS Left Upper Extremity Hand : NS Gait: wc No rash
--- OUTSIDE RECORDS SUMMARY | 2024-09-26 09:28 | XMS_ITS ---
Author Organization [facility] almita Address [address] [place] [address] Care Team Providers Care Supervisor Finishing Name Role Phone Sammie RONDON, Parminder Primary Care Provider Unavail able Filippo Jenkins Unavailable [phone] Allergies Allergen (clinical drug ingredient) Drug/Non Drug Allergy documented on EMR Reaction Allergy Type Onset Date Status Amoxicillin ER Unknown Drug Allergy Ac tive codeine Codeine Unknown Drug Allergy 11/05/2004 Active Results Component Value Reference Range Notes CBC w auto diff Reviewed date:09/03/2024 03:29:31 PM Interpretation: Performing Lab:[facility] , [facility]. [facility] [address] Notes/Report: WBC 6.8 3.8-9.9 K/cumm Hgb 13.9 11.9-15.5 g/dL Hct 43.6 35.6-45.5 % Platelet Ct 259 150-400 K/cumm MPV 12.1 9.1-12.3 fL RBC 4.61 3.90-5.20 M/cumm MCV 94.6 81.3-96.4 fL MCH 30.2 27.1-33.3 pg MCHC 31.9 32.3-35.7 g/dL RDW CV 16.0 11.1-14.9 % RDW SD 54.6 35.7-48.1 fL NRBC Abs Auto 0.00 0.00-0.01 K/cumm Creatinine Reviewed date:09/03/2024 03:29:31 PM Interpretation: Performing Lab:[facility] , [address] [facility] [facility] [address] Notes/Report: Creatinine 0.68 0.60-1.10 mg/dL Hep Func Panel Reviewed date:09/03/2024 03:29:31 PM Interpretation: Performing Lab:[facility] , [address] [facility]. [facility] [address] Notes/Report: Total Bilirubin 0.4 0.1-1.2 mg/dL Bilirubin, Direct 0.2 0.1-0.3 mg/dL Plasma Total Protein 6.2 6.5-8.5 g/dL Albumin 4.1 3.5-5.0 g/dL Alkaline Phosphatase 50 40-130 Units/L ALT 16 7-45 Units/L AST 18 10-45 Units/L REASON FOR VISIT 3 month f/u Medications Medication SIG (Take, Route, Frequency, Duration) Notes Start Date End Date Status Sotalol HCl 80 MG TAKE 1 TABLET BY ORA L ROUTE 2 TIMES EVERY DAY Oral 01/25/2019 Active Vitamin D (Ergocalciferol) 24986 UNIT Oral Active Pramipexole Dihydrochloride 0.5 MG take 1 tablet (0.5 mg) by oral route 2-3 hours before bedtime Oral 0 Active Proventil HFA 108 (90 Base) MCG/ACT inhale 1 puff (90 mcg) by inhalation route every 6 hours as needed Inhalation 4 Not-Taking Mounjaro 2.5 MG/0.5ML INJECT 2.5 MG UNDE R THE SKIN WEEKLY FOR 4 WEEKS Subcutaneous for 28 Days Active Praluent 150 MG/ML inject 1 milliliter (150 mg) by subcutaneous route every 2 weeks in the abdomen, thigh, or upper arm rotating injection sites Subcutaneous 7.38862602147576L-16 Active Metoprolol Tartrate 25 MG take 1 tablet (25 mg) by oral route 2 times per day Oral 2 Active Xarelto 20 MG take 1 tablet (20 mg ) by oral route once daily with the evening meal Oral 1 Active Meclizine HCl 25 MG take 1 tablet (25 mg ) by oral route once daily Oral 1 Active Pravastatin Sodium 10 MG take 1 tablet ( 10 mg) by oral route once daily at bedtime Oral 1 Active Furosemide 40 MG take 1 tablet (40 mg ) by oral route once daily Oral 1 Active Stiolto Respimat 2.5-2.5 MCG/ACT inhale 2 puffs by inhalation route once daily at the same time each day Inhalation 1 Active Lomotil 2.5-0.025 MG take 2 tablets (5 m g) by oral route once daily Oral as needed Active Pantoprazole Sodium 40 MG take 1 tablet (40 mg) by oral route once daily Oral 1 Active Potassium Chloride ER 20 MEQ take 1 tablet (20 meq) by oral route 2 times per day with food Oral 2 Active Leflunomide 20 MG TAKE 1 TABLET BY EKITH TH EVERY DAY for 90 Active Vital Signs Temperature 97.7 degrees Fahrenheit 09/02/19 25 Blood pressure systolic 140 mm Hg 09/02/19 25 Blood pressure diastolic 80 mm Hg 025 Heart Rate 68 /min 09/02/2024 Height 63 in 09/02/2024 Weight 188 lbs 09/02/2024 BMI 33.3 kg/m2 09/02/2024 Oximetry 92 % 09/02/2024 Height-cm 160.02 cm 09/02/2024 Weight-kg 85.26 kg 09/02/2024 Encounters Encounter Location Date Provider Diagnosis [facility] [address] [place] [address] 09/02/2024 Filippo Jenkins Other care home (current) drug therapy Z79.899 and Other specified rheumatoid arthritis, 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 Assessments Encounter Date Diagnosis (ICD Code) Assessment Notes Treatment Notes Treatment Clinical Notes Section Notes 09/02/2024 Other 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 (current) 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 therapy (ICD-10 - Z79.899) 09/02/2024 Other specified rheumatoid arthritis, multiple sites (ICD-10 - M06.89) Plan Of Treatment Next Appt Details Follow Up: 3 Months, Reason: Provider Name:Filippo sylvester, 12/02/2024 11:00:00 AM, [address], [address], [place], [address], Progress Notes * Laura CLIFFORD ADOB:[birth year] (74 yo F)Acc No.[id number]:09/02/2024 Progress Notes Patient:?Laura CLIFFORD Provider:?Filippo Jenkins MD :1950???Age:74 Y???Sex:Female D ate:09/02/2024 Address:[address] [place] [address] Pcp:Parminder Cochran MD Subjective: * Chief Complaints: * ???3 month f/u * HPI: ???Advance Care Planning:? No acute joint swelling. No significant AM stiffness, gelling. No significant rash. No significant bruises. No cough. No SOB. No CP. No F/C/S. No major GI upset. Bowels working. Energy OK. Sleep OK. Tolerates meds. Wt. stable. Appetite stable.In WC today. Some fluid retention at ankles. Saw 2 neurologists recently. * ROS:?Energy OK. Sleep OK . * [...] or upper arm rotating injection sites Subcutaneous [id number]-98 Metoprolol Tartrate 25 MG Tablet take 1 [...] TIMES EVERY DAY Oral Vitamin D (Ergocalciferol) 83859 UNIT Capsule Oral Mounjaro 2.5 MG/0.5ML Solution Pen- injector INJECT 2.5 MG UNDER THE SKIN WEEKLY FOR 4 WEEKS Subcutaneous Leflunomide 20 MG Tablet TAKE 1 TABLET BY MOUTH EVERY DAY Taking Furosemide 40 MG Tablet take 1 [...] or upper arm rotating injection sites Subcutaneous 7.00406530076827V-48 Taking Metoprolol Tartrate 25 MG Tablet take [...] EVERY DAY Oral Taking Vitamin D (Ergocalciferol) 61112 UNIT Capsule Oral Taking Mounjaro 2.5 MG/0.5ML Solution Pen-injector INJECT 2.5 MG UNDER THE SKIN WEEKLY FOR 4 WEEKS Subcutaneous Taking Leflunomide 20 MG Tablet TAKE 1 TABLET BY MOUTH EVERY DAY Not-TakingProventil HFA 108 (90 Base) MCG/ACT Aerosol Solution inhale 1 puff (90 mcg) by inhalation route every 6 hours as needed Inhalation 4 Not-Taking Proventil HFA 108 (90 Base) MCG/ACT Aerosol Solution inhale 1 puff (90 mcg) by inhalation route every 6 hours as needed Inhalation 4 * Allergies:?Codeine: Allergy - Onset Date 11/05/2004Amoxicillin ER Objective: * Vitals:?BP:140/80mm Hg, HR:6 8/min, Temp:97.7F, Oxygen sat %:92%, Wt:188lbs, Wt-k.26kg, Ht:63in, Ht-cm:160.02cm, BMI:33.3Index, Body Surface Area:1.95. * Examination: ???General Examination: ???Physical Examination Constitutional [...] arthritis, multiple sites - M06.89 (Primary)???2.?Other 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 (current) drug therapy - Z79.899??? Plan: * Treatment: ? Value Reference Range ?WBC 6.8 3.8-9.9 - K/cum m * ?RBC 4.61 3.90-5.20 - M/c umm * ?Hgb 13.9 11.9-15.5 - g/d L * ?Hct 43.6 35.6-45.5 - % * ?MCV 94.6 81.3-96.4 - fL * ?MCH 30.2 27.1-33.3 - pg * ?MCHC 31.9 L 32.3-35.7 - g/d L * ?Plt 259 150-400 - K/cum m * ?MPV 12.1 9.1-12.3 - fL * ?RDW CV 16.0 H 11.1-14.9 - % * ?RDW SD 54.6 H 35.7-48.1 - fL * ?NRBC Abs Auto 0.00 0.00-0.01 - K/cumm * This lab was reviewed by Morgan Jenkins on 09/03/2024 at 15:29 PM PIERCING ARTIST ?LAB: Creatinine* ? Value Reference Range ?Creatinine 0.68 0.60-1.10 - mg/dL * This lab was reviewed by Morgan Jenkins on 09/03/2024 at 15:29 PM PIERCING ARTIST ?LAB: Hep Func Panel* ? Value Reference Range ?ALT 16 7-45 - Units/L * ?Albumin 4.1 3.5-5.0 - g/dL * ?Alk Phos 50 40-130 - Units /L * ?AST 18 10-45 - Units/L * ?Bili Totl 0.4 0.1-1.2 - mg/ dL * ?Protein Plas 6.2 L 6.5-8.5 - g/dL * ?Bili Direct 0.2 0.1-0.3 - m g/dL * This lab was reviewed by Morgan Jenkins on 09/03/2024 at 15:29 PM PIERCING ARTIST 2.?Other 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 (current) drug therapy?LAB: CBC w auto diff* ? Value Reference Range ?WBC 6.8 3.8-9.9 - K/cum m * ?RBC 4.61 3.90-5.20 - M/c umm * ?Hgb 13.9 11.9-15.5 - g/d L * ?Hct 43.6 35.6-45.5 - % * ?MCV 94.6 81.3-96.4 - fL * ?MCH 30.2 27.1-33.3 - pg * ?MCHC 31.9 L 32.3-35.7 - g/d L * ?Plt 259 150-400 - K/cum m * ?MPV 12.1 9.1-12.3 - fL * ?RDW CV 16.0 H 11.1-14.9 - % * ?RDW SD 54.6 H 35.7-48.1 - fL * ?NRBC Abs Auto 0.00 0.00-0.01 - K/cumm * This lab was reviewed by Morgan Jenkins on 09/03/2024 at 15:29 PM PIERCING ARTIST ?LAB: Creatinine* ? Value Reference Range ?Creatinine 0.68 0.60-1.10 - mg/dL * This lab was reviewed by Morgan Jenkins on 09/03/2024 at 15:29 PM PIERCING ARTIST ?LAB: Hep Func Panel* ? Value Reference Range ?ALT 16 7-45 - Units/L * ?Albumin 4.1 3.5-5.0 - g/dL * ?Alk Phos 50 40-130 - Units /L * ?AST 18 10-45 - Units/L * ?Bili Totl 0.4 0.1-1.2 - mg/ dL * ?Protein Plas 6.2 L 6.5-8.5 - g/dL * ?Bili Direct 0.2 0.1-0.3 - m g/dL * This lab was reviewed by Morgan Jenkins on 09/03/2024 at 15:29 PM PIERCING ARTIST * Procedure Codes:?G2211 Compl ex e/m visit add on * Follow Up:?3 Months * Billing Information: * Visit Code:? 08142 Office Visit, Est Pt., Level 4. * Procedure Codes:? G2211 Complex e/m visit add on. * CING ARTIST Sign off status: Completed true * Provider:?Filippo Jenkins MD Date:? 09/02/2024 Generated for Elaine multani/Sakshi/Marieitting on:?09/26/2024 09:28 AM PIERCING ARTIST History and Physical Notes * Examination Category [...]
--- OUTSIDE RECORDS SUMMARY | 2024-09-26 09:28 | XMS_ITS | Clinical Summary ---
Author Organization [facility] Address [address] [place] [address] Care Team Providers Care Informatics Application Analyst Name Role Phone Parminder Rojas MD Primary Care Provider [phone] Yannick Guevara MD Unavailable [phone] Ayde Peña MD Unavailable Allergies Active Allergy Reactions Criticality Noted Date [...] Date Functional diarrhea 05/23/2021 Anal fissure 02/07/2021 Encounters Date Type Department Care Team Description 09/15/2024 [facility] [address] [facility] [address] [place] [address] Claudine Odom MA MRI Lumbar Spine 09/14/2024 12:01 PM LEGAL MEDIATOR - 09/14/2024 11:59 PM LEGAL MEDIATOR Hospital Encounter [facility] [address] [place] [address] Nicole Brumfield MD Proximal leg weakness; Lumbar disc disease Discharge Disposition: Discharge to home or self care 09/02/2024 6:30 PM LEGAL MEDIATOR - 09/02/2024 11:59 PM LEGAL MEDIATOR Hospital Encounter [address] [phone] Discharge Disposition: Discharge to home or self care 08/26/2024 5:35 PM LEGAL MEDIATOR Lab [facility] [address] [place] [address] Proximal muscle weakness; Left foot drop 08/26/2024 2:00 PM LEGAL MEDIATOR Office Visit [facility] Neuro Muscle [address] [facility] 6th [place] [address] [place] [address] Bobby Blanca MD Left foot drop (Primary Dx); Proximal muscle weakness 07/22/2024 [facility] [address] [facility] [address], [place] [address] Claudine Odom MA 07/20/2024 10:15 AM LEGAL MEDIATOR Lab [facility] [address] [facility] [place] [place] [address] Proximal leg weakness; Disorder of muscle, unspecified 07/20/2024 9:00 AM LEGAL MEDIATOR Office [facility] [address] [place] [address] Nicole Brumfield MD Proximal leg weakness (Primary Dx); Lumbar disc disease; Disorder of muscle, unspecified; Numbness of feet 07/20/2024 [facility] [address] Claudine Odom MA from Last 3 Months Surgical History Surgery Date Site/Laterality Comments TOTAL KNEE ARTHROPLASTY 2007 Bilateral Total Knee Replacement OTHER SURGICAL HISTORY 2007 Bilateral carpal tunnel 2007 & 2008 LUMBAR DISCECTOMY 2008 Diskectomy, Lumbar OTHER SURGICAL HISTORY 2012 L Achilles tendon Repair Medical History Medical History Date Comments Gastroesophageal reflux disease GERD Rheumatoid arthritis (HCC) Rheum atoid arthritis Myocardial infarction (HCC) Hypertension COPD (chronic obstructive pulmonary disease) (HC C) Rheumatoid arthritis (HCC) Family History Medical History Relation Name Comments Alcohol abuse Father Family history of alcoholism - (Added by TW Conv) Cancer Father Family history of malignant neoplasm - (Added by TW Conv) Arthritis Mother Family history of arthritis - (Added by TW Conv) Coronary artery disease Mother Km nary Artery Bypass Graft; Diabetes Mother Family history of diabetes mellitus - (Added by TW Conv) Heart attack Mother Myocardial Infa rction; Heart disease Mother Family history of cardiac disorder - (Added by TW Conv) Stroke Mother Family history of cerebrovascular accident (CVA) - (Added by TW Conv) Relation Name Status Comments Father Mother Alive Social History Tobacco Use Types Packs/Day [...] on file Legal Sex Female 2:00 AM LEGAL MEDIATOR Gender Identity Not on file Sexual Orientation Not on file Obstetrics History Last Filed Vital Signs Vital Sign Reading Time Taken Comments Blood Pressure 161/74 08/26/2024 1:13 PM LEGAL MEDIATOR Pulse 63 08/26/2024 1:13 PM LEGAL MEDIATOR Temperature 36.1 ??C (96.9 ??F) 08/06/2021 1:42 PM CS T Respiratory Rate 16 07/20/2024 9:06 AM LEGAL MEDIATOR Oxygen Saturation 92% 07/20/2024 9:06 AM LEGAL MEDIATOR Inhaled Oxygen Concentration - - Weight 81.6 kg (180 lb) 09/14/2024 12:16 PM LEGAL MEDIATOR Height 154.9 cm (5' 1 ) 09/14/2024 12:16 PM LEGAL MEDIATOR Body Mass Index 34.01 09/14/2024 12:16 PM LEGAL MEDIATOR Plan of Treatment Health Maintenance Due Date Last Done Comments Breast Cancer Screening-Mammogram 1950 Colon Cancer Screening-Colonoscopy 1950 Depression Screening 1952 Fall Risk Assessment 1950 Hepatitis C Screening 1950 Osteoporosis Screening-Bone Density Scan 1950 DTaP/Tdap/Td Vaccine (1 - Tdap) 02/12/1963 Hepatitis B Screening 02/12/1970 Zoster Vaccine (2 of 3) 05/18/2013 03/23/2013 Well Visit 65+ 02/12/2017 Pneumococcal vaccine 65+ (2 of 2 - PPSV23 or PCV20) 10/15/2020 08/20/2020 Covid-19 Vaccine (3 - 2023-2 5 season) 2024 12/20/2020, 11/29/2020 Influenza Vaccine (#1) 2024 8, 06/22/2017, 07/07/2016, Additional history exists Procedures Procedure Name Priority Date/Time Associated Diagnosis Comments MRI LUMBAR SPINE WO CONTRAST Schedule Routine, Read Routine (OP Routine) 09/14/2024 1:40 PM LEGAL MEDIATOR Proximal leg weakness Lumbar disc disease EGFR Routine 09/02/2024 2:19 PM LEGAL MEDIATOR DIFFERENTIAL AUTO Routine 09/02/2024 2:1 9 PM LEGAL MEDIATOR CREATININE Routine 09/02/2024 2:19 PM LEGAL MEDIATOR HEPATIC FUNCTION PANEL Routine 09/02/2024 2:19 PM LEGAL MEDIATOR CBC WITH AUTO DIFFERENTIAL Routine 09/02/2024 2:19 PM LEGAL MEDIATOR NEUROMUSCULAR SPECIMEN TRACKING OUTPATIENT Routine 08/29/2024 3:43 PM LEGAL MEDIATOR Proximal muscle weakness Left foot drop PATRICIA QUALITATIVE WITH REFLEX TO PATRICIA QUANTITATIVE Routine 08/26/2024 3:43 PM LEGAL MEDIATOR Proximal muscle weakness Left foot drop RICH ANTIBODY EVALUATION WITH REFLEX Routine 08/26/2024 3:43 PM LEGAL MEDIATOR Proximal muscle weakness Left foot drop IMMUNOTYPING Routine 07/20/2024 10:26 AM LEGAL MEDIATOR Proximal leg weakness CREATINE KINASE (CK), TOTAL Routine 07/20/2024 10:26 AM LEGAL MEDIATOR Proximal leg weakness ALDOLASE Routine 07/20/2024 10:26 AM LEGAL MEDIATOR Proximal leg weakness VITAMIN B12 Routine 07/20/2024 10:26 AM LEGAL MEDIATOR Proximal leg weakness FOLATE Routine 07/20/2024 10:26 AM LEGAL MEDIATOR Proximal leg weakness ERYTHROCYTE SEDIMENTATION RATE Routine 07/20/2024 10:26 AM LEGAL MEDIATOR Proximal leg weakness CRP (ACUTE PHASE) Routine 07/20/2024 10: 26 AM LEGAL MEDIATOR Proximal leg weakness PROTEIN ELECTROPHORESIS, WITH REFLEX, SERUM Routine 07/20/2024 10:26 AM LEGAL MEDIATOR Proximal leg weakness COPPER, SERUM Routine 07/20/2024 10:26 AM LEGAL MEDIATOR Proximal leg weakness VITAMIN B1 Routine 07/20/2024 10:26 AM LEGAL MEDIATOR Proximal leg weakness TSH Routine 07/20/2024 10:26 AM LEGAL MEDIATOR Proximal leg weakness Disorder of muscle, unspecified from Last 3 Months Results * MRI Lumbar Spine WO Contrast (09/14/2024 1:40 PM LEGAL MEDIATOR) Anatomical Region Laterality Modality Spine N/A Magnetic Resonan ce 09/14/2024 4:48 PM LEGAL MEDIATOR Addenda Addendum by Kendrick Jenkins MD on 09/14/2024 5:14 PM LEGAL MEDIATOR The Non Critical results were discussed with Nicole Brumfield MD by Cherelle Robles Early Learning Teacher on 09/14/2024 at 5:03 LEGAL MEDIATOR Edited by: Cherelle Robles Electronically signed by: Kendrick Jenkins M.D. Impressions 09/14/2024 4:48 PM LEGAL MEDIATOR 1. Advanced multilevel degenerative changes of the [...] Kendrick Jenkins M.D. Narrative 09/14/2024 4:48 PM LEGAL MEDIATOR EXAM: MRI LUMBAR SPINE WO CONTRAST INDICATION: [...] by: Kendrick Jenkins M.D. Nicole Brumfield MD [facility] MRI PROCEDURES Edited Res ult - Final * eGFR (09/02/2024 2:19 PM LEGAL MEDIATOR) eGFR >90 >=60 mL/min/1. 73 m2 Comment: [...] of Race in Diagnosing Kidney Disease, JASN 202). The CKD-EPI equation should not be used for patients with unstable renal function and has not been validated in children and those over 70. Current interpretive data was last reviewed 2021. Blood 09/02/2024 2:19 PM LEGAL MEDIATOR 09/02/2024 7:37 PM LEGAL MEDIATOR us Filippo Carpenter MD LAB BLOOD ORDERABLES Fin al Result [facility] [address] [place] [address] * Differential, auto (09/02/2024 2:19 PM LEGAL MEDIATOR) Neutrophil abs 4.5 1.5 - 6.5 K/cumm Imm gran abs 0.0 0.0 - 0.1 K/cumm [facility] Lymphocyte abs 1.3 0.8 - 3.3 K/cumm [facility] Monocyte abs 0.8 0.2 - 0.8 K/cumm [facility] Eosinophil abs 0.1 0.0 - 0.5 K/cumm [facility] Basophil abs 0.1 0.0 - 0.1 K/cumm [facility] Neutrophil pct 65.5 % [facility] Comment: Interpretive Data Percent cell count reference ranges are not reported, since discordance with absolute values may lead to misinterpretation of CBC data. Current Interpretive Data was last revised on 2017. Imm gran pct 0.4 % [facility] Comment: Interpretive Data Percent cell count reference ranges are not reported, since discordance with absolute values may lead to misinterpretation of CBC data. Current Interpretive Data was last revised on 2017. Lymphocyte pct 19.0 % [facility] Comment: Interpretive Data Percent cell count reference ranges are not reported, since discordance with absolute values may lead to misinterpretation of CBC data. Current Interpretive Data was last revised on 2017. Monocyte pct 12.1 % [facility] Comment: Interpretive Data Percent cell count reference ranges are not reported, since discordance with absolute values may lead to misinterpretation of CBC data. Current Interpretive Data was last revised on 2017. Eosinophil pct 2.1 % [facility] Comment: Interpretive Data Percent cell count reference ranges are not reported, since discordance with absolute values may lead to misinterpretation of CBC data. Current Interpretive Data was last revised on 2017. Basophil pct 0.9 % [facility] Comment: Interpretive Data Percent cell count reference ranges are not reported, since discordance with absolute values may lead to misinterpretation of CBC data. Current Interpretive Data was last revised on 2017. Blood 09/02/2024 2:19 PM LEGAL MEDIATOR 09/02/2024 6:51 PM LEGAL MEDIATOR us Filippo Carpenter MD LAB BLOOD ORDERABLES Fin al Result [facility] [address] Department [place] [address] * (ABNORMAL) CBC with auto differential (09/02/2024 2:19 PM LEGAL MEDIATOR) WBC 6.8 3.8 - 9.9 K/cumm Hgb 13.9 11.9 - 15.5 g/dL [facility] Hct 43.6 35.6 - 45.5 % [facility] Plt 259 150 - 400 K/cumm [facility] MPV 12.1 9.1 - 12.3 fL [facility] RBC 4.61 3.90 - 5.20 M/cumm [facility] MCV 94.6 81.3 - 96.4 fL [facility] MCH 30.2 27.1 - 33.3 pg [facility] MCHC 31.9(L) 32.3 - 35.7 g/dL [facility] RDW CV 16.0(H) 11.1 - 14.9 % [facility] RDW SD 54.6(H) 35.7 - 48.1 fL [facility] NRBC abs 0.00 0.00 - 0.01 K/cumm [facility] Blood 09/02/2024 2:19 PM LEGAL MEDIATOR 09/02/2024 6:51 PM LEGAL MEDIATOR Filippo Carpenter MD LAB BLOOD ORDERABLES Fin al Result Performing Organization Address City/[facility]/ZIP Co de Phone Number [facility] [address] [facility] [place] [address] * Creatinine (09/02/2024 2:19 PM LEGAL MEDIATOR) Pathologist [facility] Creatinine 0.68 0.60 - 1.10 mg/dL Blood 09/02/2024 2:19 PM LEGAL MEDIATOR 09/02/2024 6:51 PM LEGAL MEDIATOR Filippo Carpenter MD LAB BLOOD ORDERABLES Fin al Result Performing Organization Address [facility] Co de Phone Number [facility] [address] [facility] [place] [address] * (ABNORMAL) Hepatic function panel (09/02/2024 2:19 PM LEGAL MEDIATOR) Bilirubin, total 0.4 0.1 - 1.2 mg/dL Bilirubin, direct 0.2 0.1 - 0.3 mg/dL [facility] Protein, pl 6.2(L) 6.5 - 8.5 g/dL [facility] Albumin 4.1 3.5 - 5.0 g/dL [facility] Alk phos 50 40 - 130 Units/L [facility] ALT 16 7 - 45 Units/L [facility] AST 18 10 - 45 Units/L [facility] Blood 09/02/2024 2:19 PM LEGAL MEDIATOR 09/02/2024 6:51 PM LEGAL MEDIATOR Filippo Carpenter MD LAB BLOOD ORDERABLES Fin al Result Performing Organization Address [facility] Co de Phone Number [facility] [address] Department [place] [address] * Neuromuscular Specimen Tracking Outpatient Blood (08/29/2024 3:43 PM LEGAL MEDIATOR) Blood Narrative [facility] - 08/29/2024 3:43 PM LEGAL MEDIATOR Blood draw complete Bobby Blanca MD LAB BLOOD ORDERABLES Tawnya l Result Performing Organization Address [facility] Co de Phone Number [facility] Department [place] [address] * PATRICIA ab ql w/rflx to PATRICIA qn (08/26/2024 3:43 PM LEGAL MEDIATOR) PATRICIA Negative Comment: Interpretive Data Normal range [...] revised on 2020. Blood 08/26/2024 3:43 PM LEGAL MEDIATOR 08/26/2024 4:33 PM LEGAL MEDIATOR Bobby Blanca MD LAB BLOOD ORDERABLES Tawnya l Result Performing Organization Address [facility] Co de Phone Number [facility] Department [place] [address] * RICH ab eval w/reflex (08/26/2024 3:43 PM LEGAL MEDIATOR) RICH ab Negative Negative Comment: Interpretive Data Positive Screens will be reflexed to specific testing for Antibodies against the following antigens: Elba-1 Ab, WINCH DRIVER Ab, Scl-70 Ab, Brennan Ab, SS-A/Ro Ab, and SS- B/La Ab. Further testing for dsDNA, Centromere, or Ribosomal P antibodies is suggested in patient with a positive screen and negative specific antibodies. Current interpretive data was last revised on 2023. Blood 08/26/2024 3:43 PM LEGAL MEDIATOR 08/26/2024 4:33 PM LEGAL MEDIATOR Bobby Blanca MD LAB BLOOD ORDERABLES Tawnya l Result Performing Organization Address City/[facility] Co de Phone Number [facility] Department [place] [address] * Immunotyping, serum (07/20/2024 10:26 AM LEGAL MEDIATOR) Pathologist [facility] Immunosubtraction See Comment Comment:IMMUNOTYPING INTERPR ETATION: No Monoclonal Protein Detected Blood 07/20/2024 10:2 6 AM LEGAL MEDIATOR 07/20/2024 12:07 PM LEGAL MEDIATOR Narrative [facility] - 07/21/2024 11:06 AM LEGAL MEDIATOR Reflex Immunotyping, Ser Nicole Brumfield MD LAB BLOOD ORDERABLES Final Re sult Performing Organization Address [facility] Co de Phone Number [facility] [address] Department [place] [address] * Copper, serum (07/20/2024 10:26 AM LEGAL MEDIATOR) Pathologist [facility] Copper 113 77 - 206 mcg/dL [facility] Comment: ADDITIONAL INFORMATION This test was developed and its performance characteristics determined by [facility] in a manner consistent with CLIA requirements. This test has not been cleared or approved by the U.S. Food and Drug Administration. Test Performed by: [facility] - [address] [address] Counting Machine Operator: Alex Schultz Ph.D.; CLIA# [id number] Blood 07/20/2024 10:2 6 AM LEGAL MEDIATOR 07/20/2024 12:07 PM LEGAL MEDIATOR Nicole Brumfield MD LAB BLOOD ORDERABLES Final Re sult [facility] [address] Department of [employer] [place], [place] [id number] [facility] * Aldolase (07/20/2024 10:26 AM LEGAL MEDIATOR) Aldolase 3.6 0.1 - 8.0 Units/L Comment:Testing performed by : [facility], [address] [place]., [address] Blood 07/20/2024 10:2 6 AM LEGAL MEDIATOR 07/20/2024 7:56 PM LEGAL MEDIATOR Nicole Brumfield MD LAB BLOOD ORDERABLES Final Re sult Performing Organization Address City/[facility]/ZIP Co de Phone Number [facility] [address] Department of [employer] [place], [place] [id number] * Erythrocyte sedimentation rate (07/20/2024 10:26 AM LEGAL MEDIATOR) Erythrocyte sedimentation rate 11 1 - 30 mm/hr Blood 07/20/2024 10:2 6 AM LEGAL MEDIATOR 07/20/2024 12:08 PM LEGAL MEDIATOR Nicole Brumfield MD LAB BLOOD ORDERABLES Final Re sult [facility] [address] Department [employer] [place], [place] [id number] * CRP (acute phase) (07/20/2024 10:26 AM LEGAL MEDIATOR) CRP 3.2 <=10.0 mg/L Blood 07/20/2024 10:2 6 AM LEGAL MEDIATOR 07/20/2024 12:08 PM LEGAL MEDIATOR Nicole Brumfield MD LAB BLOOD ORDERABLES Edited [facility] - Final Performing Organization Address [facility] Co de Phone Number [facility] [address] [employer] [place], [place] [phone] * TSH (07/20/2024 10:26 AM LEGAL MEDIATOR) Thyroid Stimulating Hormone 1.87 0.30 - 4.20 mcIUnit/mL Blood 07/20/2024 10:2 6 AM LEGAL MEDIATOR 07/20/2024 12:08 PM LEGAL MEDIATOR Nicole Brumfield MD LAB BLOOD ORDERABLES Edited [facility] Performing Organization Address [facility] de Phone Number [facility] [address] [employer] [place], [place] [id number] * Vitamin B1 (07/20/2024 10:26 AM LEGAL MEDIATOR) Thiamine (Vit B1) 122 70 - 180 nmol/L [facility] Comment: ADDITIONAL INFORMATION This test was developed and its performance characteristics determined by [facility] in a manner consistent with CLIA requirements. This test has not been cleared or approved by the U.S. Food and Drug Administration. Test Performed by: [address] [address] Counting Machine Operator: Alex Schultz Ph.D.; CLIA# [id number] Blood 07/20/2024 10:2 6 AM LEGAL MEDIATOR 07/20/2024 4:41 PM LEGAL MEDIATOR Result [facility] Nicole Brumfield MD LAB BLOOD ORDERABLES Final Re sult Performing Organization Address [facility] Co de Phone Number [facility] [address] Department [employer] [place], [place] [phone] [facility] * Protein electrophoresis with reflex, serum (07/20/2024 10:26 AM LEGAL MEDIATOR) Pathologist [facility] Protein, sr 6.2 6.2 - 8.2 g/dL Albumin 3.6 3.2 - 5.0 g/dL [facility] Alpha-1 globulin 0.3 0.2 - 0.4 g/dL [facility] Alpha-2 globulin 1.0 0.5 - 1.0 g/dL [facility] Beta-1 globulin 0.4 0.3 - 0.6 g/dL [facility] Beta-2 globulin 0.3 0.2 - 0.6 g/dL [facility] Gamma globulin 0.5 0.5 - 1.7 g/dL [facility] SPEP interp See Comment [facility] Comment:SPEP INTERPRETATION: No apparent monoclonal protein. Decreased gamma globulins. Immunotyping See Immunotyping Results [facility] Blood 07/20/2024 10:2 6 AM LEGAL MEDIATOR 07/20/2024 12:07 PM LEGAL MEDIATOR Nicole Brumfield MD LAB BLOOD ORDERABLES Final Re sult Performing Organization Address City/[facility]/ZIP Co de Phone Number [facility] [address] [employer] [place], [place] [id number] * Folate (07/20/2024 10:26 AM LEGAL MEDIATOR) [facility] Folic acid 10.7 >=5.0 ng/mL Blood 07/20/2024 10:2 6 AM LEGAL MEDIATOR 07/20/2024 12:08 PM LEGAL MEDIATOR Nicole Brumfield MD LAB BLOOD ORDERABLES Edited R esult - Final Performing Organization Address City/[facility]/ZIP Co de Phone Number [facility] [address] [place] [place] [address] * Vitamin B12 (07/20/2024 10:26 AM LEGAL MEDIATOR) [facility] Vitamin B12 551 230 - 1,250 pg/mL Blood 07/20/2024 10:2 6 AM LEGAL MEDIATOR 07/20/2024 12:08 PM LEGAL MEDIATOR Nicole Brumfield MD LAB BLOOD ORDERABLES Edited R esult - Final [facility] [address] [place] [address] * Creatine kinase (CK), total (07/20/2024 10:26 AM LEGAL MEDIATOR) CK 33 30 - 200 Units/L Blood 07/20/2024 10:2 6 AM LEGAL MEDIATOR 07/20/2024 12:08 PM LEGAL MEDIATOR Nicole Brumfield MD LAB BLOOD ORDERABLES Final Re sult Performing Organization Address [facility]/ZIP Co de Phone Number [facility] [address] [place] [address] from Last 3 Months Insurance [employer] Care Teams Informatics Application Analyst Relationship Specialty Start Date End Date Parminder Rojas MD PCP - General 01/19/14 Yannick Guevara MD [address] [facility] [phone] [place] [address] Surgeon Colon and Rectal Surgery 02/07/21 Ayde Peña MD [address] [facility] [address] [place] [address] Referring Physician Family Medicine 02/07/21
--- OUTSIDE RECORDS SUMMARY | 2024-09-26 09:28 | XMS_ITS | Continuity of Care Document ---
Author Organization [facility] Address [address] [place] [address] Phone Care Team Providers Care Legal Services Manager Name Role Phone Chris Kingsley MD Unavailable Unavailable Advance Directives Directive Yes / No Effective Date File Name No Information Encounters Encounter Description Practice Location Reason(s) For Visit Diagnoses Date Provider Providers Copied on Encounter [facility]ib[facility], [address], [place], [place], [id number], [place] tel:[phone] [facility] No Information Sancho Perez. [address] , [place], [place], [id number], [place]. tel:[phone] Referring Provider: Riky Sherman, [address], [place], [address]. tel:[phone] Family History Family Member Type Diagnosis Age At Onset No Information Payers Payer name Insurance type Covered republican ID Authoriza tion(s) [employer] MDCR AD[employer]AN[employer] HMO [place] [id number] Social History Type Description Quantity Date Captured [...]
== END 2024-09-26 08:58 | disposition home or self-care (01) ==
PROVIDERS: PCP Family Medicine; Visit Provider Nurse Practitioner Adult Health
DX: M48.061 Spinal stenosis, lumbar region without neurogenic claudication (principal); M47.896 Other spondylosis, lumbar region
CPT/HCPCS: 72110

== ENCOUNTER 2024-11-04 14:31 | Outpatient (CLI) | payer OTHER, SELFPAY ==
--- NOTE | ~2024-11-04 | XR_ITS ---
3 VIEWS LUMBAR SPINE Ordering provider: Greg Renae M.D. History: . Lumbar stenosis . Comparison: None. FINDINGS: VERTEBRAL BODIES: No visible fracture or subluxation. Degenerative changes of the spine. DISK SPACES: Narrowing of all disc spaces. Multilevel facet joint disease. SOFT TISSUES: Normal. IMPRESSION: No acute osseous abnormality lumbar spine. Multilevel degenerative disc disease. Reviewed, dictated and finalized at location A. S ACCOUNT ASSOCIATE
--- NOTE | ~2024-11-04 | CT_ITS ---
EXAMINATION: CT lumbar spine wo con DATE: 11/04/2024 15:03 INDICATION: Lumbar stenosis. TECHNIQUE: Computed tomography (CT) of the lumbar spine was performed without intravenous contrast. A utomated exposure control and iterative reconstruction technique were employed. The dose-length produ ct was 756.85 mGy-cm. COMPARISON: Lumbar spine radiographs 11/04/2024 FINDINGS: Alignment is normal. There is mild chronic anterior wedging of L1 vertebral body. There is moderately decreased disc height at T12-L1, mildly decreased disc height at L1-L2, severely decreased disc height from L2-L3 through L4-L5, and moderately decreased disc height at L5-S1. The following d isc levels are specifically discussed: L1-L2: The disc is bulging. There is moderate bilateral facet joint osteoarthritis. There is mild cristin ateral neural foraminal stenosis. There is mild central canal stenosis. L2-L3: The disc is bulging. There is severe bilateral facet joint osteoarthritis. There is mild bilat eral neural foraminal stenosis. There is mild central canal stenosis. L3-L4: The disc is bulging. There is severe bilateral facet joint osteoarthritis. There is moderate b ilateral neural foraminal stenosis. There is mild central canal stenosis. L4-L5: The disc is bulging. There is severe bilateral facet joint osteoarthritis. There is moderate b ilateral neural foraminal stenosis. There is moderate central canal stenosis. L5-S1: The disc is bulging. There is severe bilateral facet joint osteoarthritis. There is moderate r ight and mild left neural foraminal stenosis. There is mild central canal stenosis. IMPRESSION: 1. Severe lumbar spondylosis. Reviewed, dictated and finalized at location A. MASTER
== END 2024-11-04 14:32 | disposition home or self-care (01) ==
PROVIDERS: PCP Family Medicine; Visit Provider Neurological Surgery
DX: M48.061 Spinal stenosis, lumbar region without neurogenic claudication (principal); M51.369 Other intervertebral disc degeneration, lumbar region without mention of lumbar back pain or lower extremity pain; M43.06 Spondylolysis, lumbar region
CPT/HCPCS: 72110; 72131

== ENCOUNTER 2024-12-16 08:14 | Emergency (ER) | payer OTHER, SELFPAY ==
[2024-12-16] VITALS (12 sets, daily range): BP systolic 129–163; BP diastolic 66–99; PULSE 91–107; RESP 18–29; TEMP 36.5; O2SAT 90–96
--- NOTE | ~2024-12-16 | XR_ITS ---
CHEST RADIOGRAPH, PA AND LATERAL CLINICAL HISTORY: cp . COMPARISON: 01/05/2023 TECHNIQUE: PA and lateral views of the chest. FINDINGS Sternal wires and mediastinal clips are identified, the wires are midline and intact. A valvular ring at the level of the mitral valve. The remainder of the cardiomediastinal silhouette is otherwise unremarkable. The lungs are clear. Visualized osseous structures and soft tissues are unremarkable. IMPRESSION: No focal infiltrate or effusion. Reviewed, dictated and finalized at location A.
--- NOTE | 2024-12-16 08:15 | ECG_ITS ---
Test Date: 2024-12-16 08:27:10 Measurements Intervals [place] Rate: 96 P: 0 MS: 0 QRS: -22 QRSD: 93 T: 46 QT: 361 QTc: 458 Interpretive Statements SINUS RHYTHM WITH FIRST DEGREE AV BLOCK WITH ATRIAL COUPLET AND ATRIAL PREMATURE COMPLEXES INCOMPLETE RIGHT BUNDLE BRANCH BLOCK CONSIDER INFERIOR INFARCT, AGE INDETERMINATE BORDERLINE ST-T WAVE ABNORMALITY- ANTERIOR LEADS BASELINE ARTIFACT- I, II, III, AVR, AVL, AVF, V1-V6 ABNORMAL ECG No previous ECG available for comparison Electronically Signed On 12-16-2024 08:31:20 CDT by Miky Sorensen D.O.
--- OUTSIDE RECORDS SUMMARY | 2024-12-16 08:18 | XMS_ITS ---
Author Organization [facility] Address [address] [place] [address] Care Team Providers Care Corporate Secretary Name Role Phone Sammie RONDON, Parminder Primary Care Provider Unavail able Filippo Jenkins Unavailable [phone] Allergies Allergen (clinical drug ingredient) Drug/Non Drug Allergy documented on EMR Reaction Allergy Type Onset Date Status Amoxicillin ER Unknown Drug Allergy Ac tive codeine Codeine Unknown Drug Allergy 11/05/2004 Active Results Component Value Reference Range Notes Hep Func Panel Reviewed date:05/25/2024 06:15:44 AM Interpretation: Performing Lab:[facility] , [address] [place] [address]. [facility] [address] Notes/Report: Total Bilirubin 0.5 0.1-1.2 mg/dL Bilirubin, Direct 0.2 0.1-0.3 mg/dL Plasma Total Protein 6.8 6.5-8.5 g/dL Albumin 4.1 3.5-5.0 g/dL Alkaline Phosphatase 58 40-130 Units/L ALT 11 7-45 Units/L AST 16 10-45 Units/L Creatinine Reviewed date:05/25/2024 06:16:23 AM Interpretation: Performing Lab:[facility] , [address] [place] [address]. [place] [address] Notes/Report: Creatinine 0.80 0.60-1.10 mg/dL CBC w auto diff Reviewed date:05/25/2024 06:19:32 AM Interpretation: Performing Lab:[facility] , [address] [place] [address]. 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 Vital Signs Blood pressure systolic 140 mm Hg 05/24/20 Blood pressure diastolic 90 mm Hg 024 Heart Rate 107 /min 05/24/2024 Height 63 in 05/24/2024 Oximetry 88 % 05/24/2024 Encounters Encounter Location Date Provider Diagnosis [facility] [address] [facility] [place] [address] 05/24/2024 Filippo Jenkins Other senior living (current) [...] Up: 3 Months, Reason: Provider Name:Filippo sylvester, 03/02/2025 11:00:00 AM, [address], [place], [address], Progress Notes * Laura CLIFFORD ADOB:[birth year] (74 yo F)Acc No.[id number]:05/24/2024 Progress Notes Patient: Laura ONEAL Provider: Nithin Jenkins MD :1950 A ge:74 Y S ex:Female Date:05/24/2024 Address:[address] [place] [address] [facility] Pcp:Parminder Cochran MD Subjective: * Chief Complaints: * 3 month f/u * HPI: A dvance Care Planning: No acute joint swelling. No significant AM stiffness, gelling. No significant rash. No significant bruises. No cough. No SOB. No CP. No F/C/S. No major GI upset. Bowels working. Energy OK. Sleep OK. Tolerates meds. Wt. stable. Appetite stable.In WC today. Some fluid retention at ankles. * ROS: E nergy OK. Sleep OK . * Medical History: * Surgical History: * Hospitalization/Major Diagno stic Procedure: * Family History: M igrated Family History: * Denies Family History . 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 * Medications: T akingFurosemide 40 MG Tablet take 1 tablet (40 [...] bedtime Oral 1 Praluent 150 MG/ML Solution Auto- injector inject 1 milliliter (150 mg) by subcutaneous route every 2 weeks in the abdomen, thigh, or upper arm rotating injection sites Subcutaneous 7.29343466578200S-25 Metoprolol Tartrate 25 MG Tablet take 1 [...] TIMES EVERY DAY Oral Vitamin D (Ergocalciferol) 27967 UNIT Capsule Oral Leflunomide 20 MG Tablet [...] or upper arm rotating injection sites Subcutaneous 7.18398248466883I-36 Taking Metoprolol Tartrate 25 MG Tablet take [...] EVERY DAY Oral Taking Vitamin D (Ergocalciferol) 15238 UNIT Capsule Oral Taking Leflunomide 20 MG [...] 6 hours as needed Inhalation 4 * Allergies: C odeine: Allergy - Onset Date 11/05/2004Amoxicillin ER Objective: * Vitals: B P:140/90mm Hg, HR:107/min, Oxygen sat %:88%, Ht:63in. * Examination: G eneral Examination: P hysical Examination Constitutional Appearance : well nourished, alert, [...] Gait: wc No rash. Assessment: * Assessment: 1. 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 O ther senior living (current) drug therapy L AB: Hep Func Panel L AB: Creatinine L AB: CBC w auto diff * Procedure Codes: G 2211 Complex e/m visit add on * Follow Up: 3 Months * Billing Information: * Visit Code: 70800 Office Visit, Est Pt., Level 4. * Procedure Codes: G2211 Complex e/m visit add on. * Sign off status: Completed true * Provider: Nithin Jenkins MD Date: 0 05/24/2024 Generated for Elaine multani/Sakshi/Marieitting on: 0 12/16/2024 08:18 AM CDT History and Physical Notes * Examination Category [...]
--- OUTSIDE RECORDS SUMMARY | 2024-12-16 08:18 | XMS_ITS | Clinical Summary ---
Author Organization [facility] Address [address] [place] [address] Care Team Providers Care Laboratory Sampler Name Role Phone Parminder Rojas MD Primary Care Provider [phone] Allergies Active Allergy Reactions Criticality Noted Date [...] mcg/0.7 mL Syringe syringe Fluzone High-Dose Quad 2019- (PF) 240 mcg/0.7 mL IM syringe PHARMACY [...] 106 02/18/2022 10:11 AM CDT Temperature 36.2 C (97.1 F) 02/18/2022 10:11 AM CDT Respiratory Rate - - Oxygen Saturation 90% [...] 05/18/2013 03/23/2013 OSTEOPOROSIS SCREENING 02/12/2017 PNEUMOCOCCAL VACCINE 50+ YEA RS (2 of 2 - PPSV23) 08/20/2021 08/20/2020 INFLUENZA VACCINE (#1) 2024 0, 06/08/2018, 06/22/2017, Additional history exists COVID-19 Vaccine (3 - 2023-2 5 season) 2024 12/20/2020, 11/29/2020 RSV VACCINE (60+ or ) (1 - 1-dose 75+ series) 02/12/[address] [place] [address] [employer] PPO MCR Care Teams Laboratory Sampler Relationship Specialty Start Date End Date Parminder Rojas MD [address] [place] [id number] PCP - General Family Practice 02/04/22
--- OUTSIDE RECORDS SUMMARY | 2024-12-16 08:20 | XMS_ITS | Clinical Summary ---
Author Organization [facility] Address [address] [place] [address] Care Team Providers Care Street Cleaner Name Role Phone Parminder Rojas MD Primary Care Provider [phone] Yannick Guevara MD Unavailable [phone] Ayde Peña MD Unavailable [phone] Allergies Active Allergy Reactions Criticality Noted Date [...] Encounters Date Type Department Care Team Description 12/01/2024 11:10 AM CDT Lab [address] [address] 11/29/2024 Orders Only Neurology Nicole Brumfield MD from Last 3 Months Surgical History Surgery [...] by TW Conv) Coronary artery disease Mother Mk nary Artery Bypass Graft; Diabetes Mother Family [...] on file Legal Sex Female 2:00 AM COD CLERK Gender Identity Not on file Sexual Orientation Not on file Obstetrics History Last Filed Vital Signs Vital Sign Reading Time Taken Comments Blood Pressure 161/74 08/26/2024 1:13 PM COD CLERK Pulse 63 08/26/2024 1:13 PM COD CLERK Temperature 36.1 C (96.9 F) 08/06/2021 1:42 PM COD CLERK Respiratory Rate 16 07/20/2024 9:06 AM COD CLERK Oxygen Saturation 92% 07/20/2024 9:06 AM COD CLERK Inhaled Oxygen Concentration - - Weight 81.6 kg (180 lb) 09/14/2024 12:16 PM COD CLERK Height 154.9 cm (5' 1 ) 09/14/2024 12:16 PM COD CLERK Body Mass Index 34.01 09/14/2024 12:16 PM COD CLERK Plan of Treatment Health Maintenance Due Date Last Done Comments Breast Cancer Screening-Mammogram 1950 Colon Cancer Screening-Colonoscopy 1950 Depression Screening 1950 Fall Risk Assessment 1950 Hepatitis C Screening 1950 Osteoporosis Screening-Bone Density Scan 1950 DTaP/Tdap/Td Vaccine (1 - Tdap) 02/12/1963 Hepatitis B Screening 02/12/1970 Zoster Vaccine (2 of 3) 05/18/2013 03/23/2013 Well Visit 65+ 02/12/2017 Pneumococcal vaccine 65+ (2 of 2 - PPSV23) 10/15/2020 08/20/2020 Covid-19 Vaccine (3 - 2023-2 5 season) 2024 12/20/2020, 11/29/2020 Influenza Vaccine (Season Ended) 2025 06/08/2018, 06/22/2017, 07/07/2016, Additional history exists Procedures Procedure Name Priority Date/Time Associated Diagnosis Comments EGFR Routine 12/01/2024 11:11 AM CDT DIFFERENTIAL AUTO Routine 12/01/2024 11: 11 AM CDT CREATININE Routine 12/01/2024 11:11 AM CDT HEPATIC FUNCTION PANEL Routine 12/01/2024 11:11 AM CDT CBC WITH AUTO DIFFERENTIAL Routine 12/01/2024 11:11 AM CDT SCAN - NEUROLOGY 11/29/2024 10:5 0 AM CDT from Last 3 Months Results * eGFR (12/01/2024 11:11 AM CDT) eGFR 86 >=60 mL/min/1. 73 m2 Comment: Interpretive Data Reference Interval Normal >/= 90 [...] interpretive data was last reviewed 2021. Blood 12/01/2024 11:1 1 AM CDT 12/01/2024 12:21 PM CDT us Filippo Carpenter MD LAB BLOOD ORDERABLES Fin al Result [facility] [address] [employer] [place] [address] [phone] * (ABNORMAL) Differential, auto (12/01/2024 11:11 AM CDT) Neutrophil abs 4.61 1.50 - 6.50 K/cumm Imm gran abs 0.05 0.00 - 0.10 K/cumm [facility] Lymphocyte abs 1.45 0.80 - 3.30 K/cumm [facility] Monocyte abs 0.88(H) 0.20 - 0.80 K/cumm [facility] Eosinophil abs 0.26 0.00 - 0.50 K/cumm [facility] Basophil abs 0.08 0.00 - 0.10 K/cumm [facility] Neutrophil pct 62.9 % [facility] Comment: Interpretive Data Percent cell count reference ranges are not reported, since discordance with absolute values may lead to misinterpretation of CBC data. Current Interpretive Data was last revised on 2017. Imm gran pct 0.7 % [facility] Comment: Interpretive Data Percent cell count reference ranges are not reported, since discordance with absolute values may lead to misinterpretation of CBC data. Current Interpretive Data was last revised on 2017. Lymphocyte pct 19.8 % [facility] Comment: Interpretive Data Percent cell count reference ranges are not reported, since discordance with absolute values may lead to misinterpretation of CBC data. Current Interpretive Data was last revised on 2017. Monocyte pct 12.0 % [facility] Comment: Interpretive Data Percent cell count reference ranges are not reported, since discordance with absolute values may lead to misinterpretation of CBC data. Current Interpretive Data was last revised on 2017. Eosinophil pct 3.5 % [facility] Comment: Interpretive Data Percent cell count reference ranges are not reported, since discordance with absolute values may lead to misinterpretation of CBC data. Current Interpretive Data was last revised on 2017. Basophil pct 1.1 % [facility] Comment: Interpretive Data Percent cell count reference ranges are not reported, since discordance with absolute values may lead to misinterpretation of CBC data. Current Interpretive Data was last revised on 2017. Blood 12/01/2024 11:1 1 AM CDT 12/01/2024 12:21 PM CDT us Filippo Carpenter MD LAB BLOOD ORDERABLES Fin al Result Performing Organization Address [facility] Co de Phone Number [facility] [address] [employer] [place] [address] * (ABNORMAL) CBC with auto differential (12/01/2024 11:11 AM CDT) WBC 7.33 3.80 - 9.90 K/cumm Hgb 13.0 11.9 - 15.5 g/dL [facility] Hct 40.6 35.6 - 45.5 % [facility] Plt 273 150 - 400 K/cumm [facility] MPV 11.9 9.1 - 12.3 fL [facility] RBC 4.41 3.90 - 5.20 M/cumm [facility] MCV 92.1 81.3 - 96.4 fL [facility] MCH 29.5 27.1 - 33.3 pg [facility] MCHC 32.0(L) 32.3 - 35.7 g/dL [facility] RDW CV 14.8 11.1 - 14.9 % [facility] RDW SD 48.4(H) 35.7 - 48.1 fL [facility] NRBC abs 0.00 0.00 - 0.01 K/cumm [facility] Blood 12/01/2024 11:1 1 AM CDT 12/01/2024 12:21 PM CDT us Filippo Carpenter MD LAB BLOOD ORDERABLES Fin al Result [facility] [address] [place] [address] * Creatinine (12/01/2024 11:11 AM CDT) Creatinine 0.74 0.60 - 1.10 mg/dL Blood 12/01/2024 11:1 1 AM CDT 12/01/2024 12:21 PM CDT Filippo Carpenter MD LAB BLOOD ORDERABLES Fin al Result Performing Organization Address [facility] de Phone Number [facility] [address] [facility] [place] [address] * (ABNORMAL) Hepatic function panel (12/01/2024 11:11 AM CDT) [facility] Bilirubin, total 0.4 0.1 - 1.2 mg/dL Bilirubin, direct 0.2 0.1 - 0.3 mg/dL [facility] Protein, pl 6.4(L) 6.5 - 8.5 g/dL [facility] Albumin 3.6 3.5 - 5.0 g/dL [facility] Alk phos 53 40 - 130 Units/L [facility] ALT 14 7 - 45 Units/L [facility] AST 17 10 - 45 Units/L [facility] Blood 12/01/2024 11:1 1 AM CDT 12/01/2024 12:21 PM CDT Filippo Carpenter MD LAB BLOOD ORDERABLES Fin al Result Performing Organization Address [facility] de Phone Number [facility] [address] [place] [address] * SCAN - NEUROLOGY (11/29/2024 10:50 AM CDT) Anatomical Region Laterality Modality Other us Nicole Brumfield MD Final Result from Last 3 Months Insurance [employer] PPO [employer] P[employer] Care Teams Street Cleaner Relationship Specialty Start Date End Date Parminder Rojas MD PCP - General 01/19/14 Yannick Guevara MD [phone] [place] [address] Surgeon Colon and Rectal Surgery 02/07/21 Ayde Peña MD [address] [facility] [address] [place] [address] Referring Physician Family Medicine 02/07/21
--- OUTSIDE RECORDS SUMMARY | 2024-12-16 08:20 | XMS_ITS | Encounter Summary ---
Author Organization [facility] Address [address] [place] [address] Care Team Providers Care Compliance Investigator Name Role Phone Filippo Carpenter MD Unavailable [phone] Encounter Details Date Type Department Care Team (Late st Contact Info) Description 07/19/2020 Lab Requisition [facility] [address] [place] [address] Zora Gilmore MD [address] [facility] [address] [place] [address] Social History Tobacco Use Types Packs/Day Years Used Date Smoking Tobacco: Never Alcohol Use Standard Drinks/Week Comments No 0 (1 standard drink = 0.6 oz pur e alcohol) Comments No Sex and Gender Information Value Date Recorded Sex Assigned at Not on file Legal Sex Female 6:12 AM FONDANT COOKER Gender Identity Not on file Sexual Orientation Not on file documented as of this encounter Plan of Treatment Not on file documented as of this encounter Procedures Procedure Name Priority Date/Time Associated Diagnosis Comments DERMATOPATHOLOGY Routine 07/18/2020 12:0 0 AM FONDANT COOKER documented in this encounter Results * DERMATOPATHOLOGY (07/18/2020 12:00 AM FONDANT COOKER) Case Report Dermatopathology Report Case: [id number] Authorizing Provider: Zora Gilmore MD Collected: 07/18/2020 12:00 AM Ordering Location: [facility] Received: 07/19/2020 05:55 AM Pathologist: Miranda Brennan MD Specimen: Skin, nose tip 0 7:17 PM [facility] Final Diagnosis Specimen A. SKIN, nose tip: ACTINIC KERATOSIS (L57.0) (see microscopic description) 0 7:17 PM [facility] Clinical History R/O BCC,AK 0 7:17 PM [facility] Gross Description Specimen A: Received is one formalin filled container labeled with the patient's name and designated nose tip. The specimen consists of a shave biopsy measuring 3x3x1 mm. Jar 0. 0 7:17 PM [facility] Microscopic Description Specimen A. SKIN, nose tip: There is focal parakeratosis. The lower half of the epidermis shows disorderly maturation of keratinocytes with nuclear pleomorphism. Additional deeper sections were obtained and reviewed. 0 7:17 PM [facility] Disclaimer An external and internal positive and negative controls are appropriate for the histochemical, immunohistochemical and immunofluorescence stain(s) in this case (if any), except where stated explicitly. The performance characteristics of the stain(s) cited in this report were developed and its performance characteristic determined by the Dermatopathology Laboratory at [facility], directed by Dr. Krys Villagran. These tests need not be, and therefore are not, approved by the [place] Food and Drug Administration. The tests are used for clinical purposes. Billing Codes Specimen Charges Stain Charges 88234 1 0 7:17 PM [facility] Embedded Images 0 7:17 PM [facility] Pathology/Cytolog y TISSUE SPECIMEN FROM SKIN / Unknown 07/18/2020 07/19/2020 5:55 AM FONDANT COOKER us Zora Gilmore MD LAB - PATHOLOGY/CYTOLOGY ORD ERABLES Final Result DERMATOPATHOLOGY LABORATORY [facility] - Department of Dermatology [address] [phone] documented in this encounter Visit Diagnoses Not on filedocumented in this encounter Care Teams Compliance Investigator Relationship Specialty Start Date End Date Filippo Carpenter MD Physician Rheumatology 08/10/11 documented as of this encounter
--- OUTSIDE RECORDS SUMMARY | 2024-12-16 08:20 | XMS_ITS ---
Author Organization [facility] almita Address [address] [place] [address] Care Team Providers Care Flue Gas Analyst Name Role Phone Sammie RONDON, Parminder Primary Care Provider Unavail able Filippo Jenkins Unavailable [phone] Allergies Allergen (clinical drug ingredient) Drug/Non Drug Allergy documented on EMR Reaction Allergy Type Onset Date Status Amoxicillin ER Unknown Drug Allergy Ac tive codeine Codeine Unknown Drug Allergy 11/05/2004 Active Results Component Value Reference Range Notes CBC w auto diff Reviewed date:12/01/2024 12:56:05 PM Interpretation: Performing Lab:[facility] , [facility]. [facility] [address] Notes/Report: WBC 7.33 3.80-9.90 K/cumm Hgb 13.0 11.9-15.5 g/dL Hct 40.6 35.6-45.5 % Platelet Ct 273 150-400 K/cumm MPV 11.9 9.1-12.3 fL RBC 4.41 3.90-5.20 M/cumm MCV 92.1 81.3-96.4 fL MCH 29.5 27.1-33.3 pg MCHC 32.0 32.3-35.7 g/dL RDW CV 14.8 11.1-14.9 % RDW SD 48.4 35.7-48.1 fL NRBC Abs Auto 0.00 0.00-0.01 K/cumm Creatinine Reviewed date:12/01/2024 12:56:00 PM Interpretation: Performing Lab:[facility] , [address] [facility] [facility] [address] Notes/Report: Creatinine 0.74 0.60-1.10 mg/dL Hep Func Panel Reviewed date:12/01/2024 12:55:55 PM Interpretation: Performing Lab:[facility] , [address] [facility] [address] Notes/Report: Total Bilirubin 0.4 0.1-1.2 mg/dL Bilirubin, Direct 0.2 0.1-0.3 mg/dL Plasma Total Protein 6.4 6.5-8.5 g/dL Albumin 3.6 3.5-5.0 g/dL Alkaline Phosphatase 53 40-130 Units/L ALT 14 7-45 Units/L AST 17 10-45 Units/L REASON FOR VISIT 3 month f/u Medications Medication SIG (Take, Route, Frequency, Duration) Notes Start Date End Date Status Mounjaro 2.5 MG/0.5ML INJECT 2.5 MG UNDE R THE SKIN WEEKLY FOR 4 WEEKS Subcutaneous for 28 Days Active Vitamin D (Ergocalciferol) 19225 UNIT Oral Active Proventil HFA 108 (90 Base) MCG/ACT inhale 1 puff (90 mcg) by inhalation route every 6 hours as needed Inhalation 4 Not-Taking Sotalol HCl 80 MG TAKE 1 TABLET BY ORA L ROUTE 2 TIMES EVERY DAY Oral 01/25/2019 Active Leflunomide 20 MG TAKE 1 TABLET BY KEITH TH EVERY DAY for 90 Active Pramipexole Dihydrochloride 0.5 MG take 1 tablet (0.5 mg) by oral route 2-3 hours before bedtime Oral 0 Active Metoprolol Tartrate 25 MG take 1 [...] or upper arm rotating injection sites Subcutaneous 7.27174425590718Q-38 Active Potassium Chloride ER 20 MEQ take 1 tablet (20 meq) by oral route 2 times per day with food Oral 2 Active Lomotil 2.5-0.025 MG take 2 tablets (5 m g) by oral route once daily Oral as needed Active Stiolto Respimat 2.5-2.5 MCG/ACT inhale 2 puffs by inhalation route once daily at the same time each day Inhalation 1 Active Pantoprazole Sodium 40 MG take 1 tablet (40 mg) by oral route once daily Oral 1 Active Meclizine HCl 25 MG take 1 tablet (25 mg ) by oral route once daily Oral 1 Active Furosemide 40 MG take 1 tablet (40 mg ) by oral route once daily Oral 1 Active Vital Signs Temperature 97.6 degrees Fahrenheit 12/02/19 25 Blood pressure systolic 134 mm Hg 12/02/19 25 Blood pressure diastolic 76 mm Hg 025 Heart Rate 107 /min 12/01/2024 Height 63 in 12/01/2024 Weight 188 lbs 12/01/2024 BMI 33.3 kg/m2 12/01/2024 Oximetry 95 % 12/01/2024 Height-cm 160.02 cm 12/01/2024 Weight-kg 85.28 kg 12/01/2024 Encounters Encounter Location Date Provider Diagnosis [facility] [address] [facility] [facility] [address] [place] [address] 12/01/2024 Filippo Jenkins 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 and Other specified rheumatoid arthritis, 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 Assessments Encounter Date Diagnosis (ICD Code) Assessment Notes Treatment Notes Treatment Clinical Notes Section Notes 12/01/2024 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 (ICD-10 - Z79.899) 12/01/2024 Other specified rheumatoid arthritis, multiple sites (ICD-10 - M06.89) Plan Of Treatment Next Appt Details Follow Up: 3 Months, Reason: Provider Name:Filippo sylvester, 03/02/2025 11:00:00 AM, [address] [address] [address], [place], [address], Progress Notes * Laura CLIFFORD ADOB:[birth year] (74 yo F)Acc No.[id number]:12/01/2024 Progress Notes Patient: Phylicia Laura CASEY Provider: Nithin Jenkins MD :1950 A ge:74 Y S ex:Female Date:12/01/2024 Address:[address] [place] [address], [facility] Pcp:Parminder Cochran MD Subjective: * Chief Complaints: * 3 month f/u * HPI: A dvance Care Planning: No acute joint swelling. No significant AM stiffness, gelling. No significant rash. No significant bruises. No cough. No SOB. No CP. No F/C/S. No major GI upset. Bowels working. Energy OK. Sleep OK. Tolerates meds. Wt. stable. Appetite stable.In WC today. Saw NS-not candidate for surgery. * ROS: E nergy OK. Sleep OK [...] or upper arm rotating injection sites Subcutaneous [id number]-17 Metoprolol Tartrate 25 MG Tablet take 1 [...] TIMES EVERY DAY Oral Vitamin D (Ergocalciferol) 54553 UNIT Capsule Oral Mounjaro 2.5 MG/0.5ML Solution Pen-injector INJECT 2.5 [...] or upper arm rotating injection sites Subcutaneous 7.74655801555780V-82 Taking Metoprolol Tartrate 25 MG Tablet take [...] EVERY DAY Oral Taking Vitamin D (Ergocalciferol) 48098 UNIT Capsule Oral Taking Mounjaro 2.5 MG/0.5ML [...] Date 11/05/2004Amoxicillin ER Objective: * Vitals: B P:134/76mm Hg, HR: 102 /min,107/min, Temp:97.6F, Oxygen sat %: 86 %,95%, Wt:188lbs, Wt-k.28kg, Ht:63in, Ht-cm:160.02cm, BMI:33.3Index, Body Surface Area:1.95. * Examination: G eneral Examination: P hysical [...] multiple sites - M06.89 (Primary) 2 .?Other usp (current) drug therapy - Z79.899 Plan: * Treatment: 2. O ther usp (current) drug therapy L AB: Creatinine L AB: Hep Func Panel L AB: CBC w auto diff * Procedure Codes: G 2211 Complex e/m visit add on * Follow Up: 3 Months * Billing Information: * Visit Code: 09074 Office Visit, Est Pt., Level 4. * Procedure Codes: G2211 Complex e/m visit add on. * Sign off status: Completed true * Provider: Nithin Jenkins MD Date: 0 12/01/2024 Generated for Elaine multani/Sakshi/eTransmitting on: 0 12/16/2024 08:20 AM CDT History and Physical Notes * [...]
--- OUTSIDE RECORDS SUMMARY | 2024-12-16 08:20 | XMS_ITS ---
Author Organization [facility] almita Address [address] [place] [address] Care Team Providers Care Service Greeter Name Role Phone Sammie RONDON, Parminder Primary Care Provider Unavail able Filippo Jenkins Unavailable [phone] Allergies Allergen (clinical drug ingredient) Drug/Non Drug Allergy documented on EMR Reaction Allergy Type Onset Date Status Amoxicillin ER Unknown Drug Allergy Ac tive codeine Codeine Unknown Drug Allergy 11/05/2004 Active Results Component Value Reference Range Notes CBC w auto diff Reviewed date:09/03/2024 03:29:31 PM Interpretation: Performing Lab:[facility] , [facility]5 [facility]. [facility] [address] Notes/Report: WBC 6.8 3.8-9.9 K/cumm Hgb 13.9 11.9-15.5 g/dL Hct 43.6 35.6-45.5 % Platelet Ct 259 150-400 K/cumm MPV 12.1 9.1-12.3 fL RBC 4.61 3.90-5.20 M/cumm MCV 94.6 81.3-96.4 fL MCH 30.2 27.1-33.3 pg MCHC 31.9 32.3-35.7 g/dL RDW CV 16.0 11.1-14.9 % RDW SD 54.6 35.7-48.1 fL NRBC Abs Auto 0.00 0.00-0.01 K/cumm Creatinine Reviewed date:09/03/2024 03:29:31 PM Interpretation: Performing Lab:[facility] , [address] [facility] [facility] [address] Notes/Report: Creatinine 0.68 0.60-1.10 mg/dL Hep Func Panel Reviewed date:09/03/2024 03:29:31 PM Interpretation: Performing Lab:[facility] , [address] [facility]. [facility] [address] Notes/Report: Total Bilirubin 0.4 0.1-1.2 mg/dL Bilirubin, [...] DAY Oral 01/25/2019 Active Vitamin D (Ergocalciferol) 93107 UNIT Oral Active Pramipexole Dihydrochloride 0.5 MG [...] or upper arm rotating injection sites Subcutaneous 7.65801993603577H-38 Active Metoprolol Tartrate 25 MG take 1 [...] KEITH TH EVERY DAY for 90 Active Vital [...] 09/02/2024 Encounters Encounter Location Date Provider Diagnosis [facility] [address] [facility] [address] [place] [address] 09/02/2024 Filippo Jenkins Other long term care phlebotomist (current) drug therapy Z79.899 and Other specified rheumatoid arthritis, 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 Assessments Encounter Date Diagnosis (ICD Code) Assessment Notes Treatment Notes Treatment Clinical Notes Section Notes 09/02/2024 Other group home (current) drug therapy (ICD-10 - Z79.899) 09/02/2024 Other specified rheumatoid arthritis, multiple sites (ICD-10 - M06.89) Plan Of Treatment Next Appt Details Follow Up: 3 Months, Reason: Provider Name:Filippo sylvester, 03/02/2025 11:00:00 AM, [address], [place], [address], Progress Notes * Laura CLIFFORD ADOB:[birth year] (74 yo F)Acc No.[id number]:09/02/2024 Progress Notes Patient: Phylicia Laura CASEY Provider: Nithin Jenkins MD :1950 A ge:74 Y S ex:Female Date:09/02/2024 Address:[address] [place] [address], [facility] Pcp:Parminder Cochran MD Subjective: * Chief Complaints: [...] at ankles. Saw 2 neurologists recently. * ROS: E nergy OK. Sleep OK [...] or upper arm rotating injection sites Subcutaneous 7.31338364060939L-20 Metoprolol Tartrate 25 MG Tablet take 1 [...] TIMES EVERY DAY Oral Vitamin D (Ergocalciferol) 27882 UNIT Capsule Oral Mounjaro 2.5 MG/0.5ML Solution [...] or upper arm rotating injection sites Subcutaneous 7.44333520684133L-93 Taking Metoprolol Tartrate 25 MG Tablet take [...] EVERY DAY Oral Taking Vitamin D (Ergocalciferol) 77646 UNIT Capsule Oral Taking Mounjaro 2.5 MG/0.5ML [...] Date 11/05/2004Amoxicillin ER Objective: * Vitals: B P:140/80mm Hg, HR:68/min, Temp:97.7F, Oxygen sat %:92%, Wt:188lbs, Wt- k.26kg, Ht:63in, Ht-cm:160.02cm, BMI:33.3Index, Body Surface Area:1.95. * [...] multiple sites - M06.89 (Primary) 2 .?Other long term care phlebotomist (current) drug therapy - Z79.899 Plan: * Treatment: Value Reference Range W BC 6.8 3.8-9.9 - K/cumm * R BC 4.61 3.90-5.20 - M/cumm * H gb 13.9 11.9-15.5 - g/dL * H ct 43.6 35.6-45.5 - % * M CV 94.6 81.3-96.4 - fL * M CH 30.2 27.1-33.3 - pg * M CHC 31.9 L 32.3-35.7 - g/dL * P lt 259 150-400 - K/cumm * M PV 12.1 9.1-12.3 - fL * R DW CV 16.0 H 11.1-14.9 - % * R DW SD 54.6 H 35.7-48.1 - fL * N RBC Abs Auto 0.00 0.00-0.01 - K/cumm * This lab was reviewed by Morgan Jenkins on 09/03/2024 at 15:29 PM COMPUTER REPAIRER ?LAB: Creatinine* Value Reference Range C reatinine 0.68 0.60-1.10 - mg/dL * This lab was reviewed by Morgan Jenkins on 09/03/2024 at 15:29 PM COMPUTER REPAIRER ?LAB: Hep Func Panel* Value Reference Range A LT 16 7-45 - Units/L * A lbumin 4.1 3.5-5.0 - g/dL * A lk Phos 50 40-130 - Units/L * A ST 18 10-45 - Units/L * B viviana Totl 0.4 0.1-1.2 - mg/dL * P rotein Plas 6.2 L 6.5-8.5 - g/dL * B viviana Direct 0.2 0.1-0.3 - mg/dL * This lab was reviewed by Morgan Jenkins on 09/03/2024 at 15:29 PM COMPUTER REPAIRER 2.?Other long term care phlebotomist (current) drug therapy?LAB: CBC w auto diff* Value Reference Range W BC 6.8 3.8-9.9 - K/cumm * R BC 4.61 3.90-5.20 - M/cumm * H gb 13.9 11.9-15.5 - g/dL * H ct 43.6 35.6-45.5 - % * M CV 94.6 81.3-96.4 - fL * M CH 30.2 27.1-33.3 - pg * M CHC 31.9 L 32.3-35.7 - g/dL * P lt 259 150-400 - K/cumm * M PV 12.1 9.1-12.3 - fL * R DW CV 16.0 H 11.1-14.9 - % * R DW SD 54.6 H 35.7-48.1 - fL * N RBC Abs Auto 0.00 0.00-0.01 - K/cumm * This lab was reviewed by Morgan Jenkins on 09/03/2024 at 15:29 PM COMPUTER REPAIRER ?LAB: Creatinine* Value Reference Range C reatinine 0.68 0.60-1.10 - mg/dL * This lab was reviewed by Morgan Jenkins on 09/03/2024 at 15:29 PM COMPUTER REPAIRER ?LAB: Hep Func Panel* Value Reference Range A LT 16 7-45 - Units/L * A lbumin 4.1 3.5-5.0 - g/dL * A lk Phos 50 40-130 - Units/L * A ST 18 10-45 - Units/L * B viviana Totl 0.4 0.1-1.2 - mg/dL * P rotein Plas 6.2 L 6.5-8.5 - g/dL * B viviana Direct 0.2 0.1-0.3 - mg/dL * This lab was reviewed by Morgan Jenkins on 09/03/2024 at 15:29 PM COMPUTER REPAIRER * Procedure Codes: G 2211 Complex e/m visit add on * Follow Up: 3 Months * Billing Information: * Visit Code: 79435 Office Visit, Est Pt., Level 4. * Procedure Codes: G2211 Complex e/m visit add on. * UTER REPAIRER Sign off status: Completed true * Provider: Nithin Jenkins MD Date: 0 09/02/2024 Generated for Elaine multani/Sakshi/eTransmitting on: 0 12/16/2024 [...]
--- OUTSIDE RECORDS SUMMARY | 2024-12-16 08:20 | XMS_ITS | Data Portability ---
Author Organization [place] - [facility], Main Office Address [address] [facility] [address] [place] [address] Care Team Providers Care Professional Tutor Name Role Phone TERRENCE HOWELL Primary Care Provider Assessment No assessment recorded. Plan of Treatment Reminders Order Date Submit Date Provider Last Modified By Organization Details Last Modified Time Details Appointments None recorded. Lab None recorded. Referral colon & rectal surgeon referral - She can see any of the surgeons in the department. She does have an appointment on 02/07/21. 2020 021 HANSEL Guevara MD, [address] [place], [address], 18:22:55 Procedures None recorded. Surgeries None recorded. Imaging None recorded. Medication Orders None recorded. Patient TargetsNo targets recorded. Patient Instructions Encounter Date Encounter Id Patient Instructions Last Modified By Organization Details Last Modified Time 02/06/2021 [id number] She will follow up with the C&R surgeon as above. On today's visit I spent a total of {{30 35 40* 45 50 55 60}} minutes [id number] with her and her , arranging for follow-up and documenting. Not available 02/06/2021 16:07:37 Reason for Referral Colon & Rectal Surgeon Refer ral for Pile reducible with difficulty Internal hemorrhoids with heavy bleeding She can see any of the surgeons in the department. She does have an appointment on 02/07/21. Referring Physician: Ayde Peña, Family Medicine, Encounter Date: 02/06/2021 Problems Name Problem SNOMED Code Status Onset Date Resolution Date Notes Provider Name and Address Organization Details Recorded Time Pile reducible with difficulty 014978839 Active 2020 Ayde Peña MD [address] [place] [address],[address], [address] [place] [address], [facility], operated by [facility] [place] 1 15:55:09 External hemorrhoids 78165050 Active 2020 Ayde Peña MD [address] [place] [address],[place] [address], [facility], operated by [facility] [place] 1 16:01:01 History of placement of stent for coronary artery disease 794889205 Active 2020 Ayde Peña MD [address] [place] [address],[place] [address], [facility] [place] [facility] 1 16:01:39 Rheumatoid arthritis 46467327 Active 2020 Ayde Peña MD [address] [place] [address],[place] [address], [facility] [place] [facility] 1 16:03:39 Essential hypertension 57779221 Active 2020 Ayde Peña MD [address] [place] [address],[place] [address], [facility] 1 16:04:08 Family history of cancer of colon 671893443 Active 2020 Ayde Peña MD [address] [place] [address], [facility] 1 16:04:10 Gastroesophage al reflux disease without esophagitis 165613820 Active 2020 Ayde Peña MD [address] [place] [address],[place] [address], [facility] 1 16:06:21 Chronic obstructive pulmonary disease 74289687 Active 2020 Ayde Peña MD [address] [facility], [place], [address], [facility] 16:06:46 Problem Notes None recorded. Procedures Surgical History Date Name Laterality Status Provider Name and Address Organization Details Recorded Time 02/07/20 21 Anoscopy completed Ayde Peña MD [address] [facility],[address], [place], [address], [facility] 02/06/2021 15:22:11 07/01/20 20 excision of skin carcinoma completed [facility] 02/06/2021 12:01:02 08/31/19 19 Date of Last Mammogram completed [facility] 02/06/2021 12:01:37 07/31/20 18 Colonoscopy completed [facility] 02/06/2021 11:42:55 12/30/19 18 release of trigger finger completed [facility] 02/06/2021 11:59:54 12/30/19 18 arthroplasty of joint of the thumb completed [facility] 02/06/2021 12:00:17 05/01/20 17 extraction of cataract completed [facility] 02/06/2021 11:59:34 03/31/20 17 extraction of cataract completed [facility] 02/06/2021 11:59:14 12/30/19 17 lumbar spinal fusion completed [facility] 02/06/2021 11:58:27 04/10/20 16 total shoulder replacement completed [facility] 02/06/2021 11:58:04 02/28/20 14 repair of mitral valve completed [facility] 02/06/2021 11:57:27 11/30/19 14 placement of stent in circumflex branch of left coronary artery completed [facility] 02/06/2021 11:57:43 11/30/19 14 placement of stent in coronary artery completed Ayde Peña [place] [address] [place] [address],[address], [place], [address], [facility] 02/06/2021 15:09:43 05/01/20 12 repair of tendo achilles [facility] 02/06/2021 11:57:06 07/01/20 11 primary [facility] 02/06/2021 11:56:15 11/30/19 10 hammer toe operation [facility] 02/06/2021 11:56:34 01/30/20 08 primary lumbar [facility]cectomy [facility] 02/06/2021 11:44:01 11/30/19 08 Carpal tunnel surgery completed [facility] 02/06/2021 11:43:40 07/01/20 07 total knee replacement [facility] 02/06/2021 11:43:22 01/30/20 07 Carpal tunnel surgery [facility] 02/06/2021 11:43:32 10/01/19 07 total knee replacement [facility] 02/06/2021 11:43:11 02/12/19 57 Tonsillectomy completed Ayde Peña MD [address] [place] [address],[address], [place], [address], [facility] 02/06/2021 15:10:41 Imaging Results None recorded. Procedure Notes None recorded. Medical Equipment None Reported. Allergies Allergen ID Allergen Name Allergen Category Reaction Reaction Severity Criticality Documentation Date Start Date Code Code System Note Provider Name and Address Organization Details Recorded Time 4124 codeine medicatio n Not available Not available Not available 02/06/2021 3380 RxNorm Not Available Not Available Not Available Medications Name Sig Start Date Stop Date Status Note LastModified by Organization Details LastModified Time losartan 50 mg tablet active Not Available Not Available Not Available cyclobenz aprine 10 mg tablet TAKE 1 TABLET BY MOUTH NIGHTLY AT BEDTIME 02/06 completed Not Available Not Available Not Available furosemid e 40 mg tablet TAKE 1 TABLET BY MOUTH EVERY DAY active Not Available Not Available No t Available atorvasta tin 40 mg tablet TAKE 1 TABLET BY MOUTH EVERY DAY 02/06 completed Not Available Not Available Not Available atorvasta tin 80 mg tablet TAKE 1 TABLET BY MOUTH EVERY DAY active Not Available Not Available No t Available nystatin 100,000 unit/mL oral suspensio n SWISH AND SPIT 1 ML BY MOUTH DAILY FOR 10 DAYS 02/06 completed Not Available Not Available Not Available azithromy adi 250 mg tablet TAKE 2 TABLETS BY MOUTH TODAY, THEN TAKE 1 TABLET DAILY FOR 4 DAYS 02/06 completed Not Available Not Available Not Available sotalol 80 mg tablet TAKE 1 TABLET BY MOUTH TWICE A DAY active Not Available Not Available No t Available doxycycli ne hyclate 50 mg capsule TAKE 1 CAPSULE BY MOUTH EVERY DAY 02/06 completed Not Available Not Available Not Available potassium chloride ER 10 mEq tablet,ex tended release TAKE 2 TABLETS BY MOUTH EVERY DAY active Not Available Not Available No t Available leflunomi de 20 mg tablet TAKE 1 TABLET BY MOUTH EVERY DAY active Not Available Not Available No t Available triamcino lone acetonide 0.1 % topical cream APPLY TO AFFECTED AREA TWICE A DAY 02/06 completed Not Available Not Available Not Available pramipexo le 0.5 mg tablet TAKE 1 TABLET BY MOUTH EVERY DAY active Not Available Not Available No t Available hydrocort isone 2.5 % topical cream with perineal applicato r 02/06 completed Not Available Not Available Not Available famotidin e 20 mg tablet TAKE 1 TABLET BY MOUTH EVERY DAY active Not Available Not Available No t Available benzonata te 100 mg capsule TAKE 1 CAPSULE BY MOUTH THREE TIMES A DAY NEEDED FOR COUGH 02/06 completed Not Available Not Available Not Available pantopraz ole 40 mg tablet,de layed release TAKE 1 TABLET BY MOUTH EVERY DAY IN THE MORNING active Not Available Not Available No t Available warfarin 1 mg tablet TAKE 1 TABLET BY MOUTH EVERY DAY active Not Available Not Available No t Available fluocinon federica 0.05 % topical solution APPLY TO SCALP TWICE A DAY 02/06 completed Not Available Not Available Not Available albuterol sulfate HFA 90 mcg/actua tion aerosol inhaler INHALE 2 PUFFS BY MOUTH EVERY 6 HOURS NEEDED FOR BRONCHOS PASMS active Not Available Not Available No t Available clindamyc in phosphate 1 % topical solution APPLY TO SCALP TWICE DAILY 02/06 completed Not Available Not Available Not Available metoprolo l tartrate 25 mg tablet TAKE 1 TABLET BY MOUTH TWICE A DAY active Not Available Not Available No t Available clobetaso l 0.05 % shampoo APPLY TO AFFECTED AREA TWICE A WEEK 02/06 completed Not Available Not Available Not Available fenofibra te 160 mg tablet TAKE 1 TABLET BY MOUTH EVERY DAY active Not Available Not Available No t Available potassium acetate active Not Available Not Available Not Available vitamin A active Not Available Not Destini ilable Not Available niacin active Not Available Not Availa ble Not Available MagOx active Not Available Not Availa ble Not Available Vitamin D active Not Available Not Destini ilable Not Available Vascepa 1 gram capsule TAKE 2 CAPSULES BY MOUTH TWICE A DAY 02/06 completed Not Available Not Available Not Available Stiolto Respimat 2.5 mcg-2.5 mcg/actua tion solution for inhalatio n INHALE 2 PUFFS DAILY active Not Available Not Available No t Available Adult Aspirin Regimen 81 mg tablet,de layed release Take 1 tablet every day by oral route. active 02/06/21: She denies taking any other aspirin or NSAID products . Not Available Not Available Not Available Vitals Date Recorded Body temperature Provider Name a nd Address Organization Details Last Updated DateTime 02/06/2021 97 [degF] Emely Brennan [facility] 02/06/2021 11:35:23 Social History Question Answer Notes LastModified by Organizat ion Details LastModified Time Tobacco Smoking Status Never Smoker Emelykrys Brennan [facility] 02/06/2021 11:42:13 Do You Have An Advance Directive? No [email or web address] Information not available 02/06/2021 Do You Or Have You Ever Used E-cigarettes Or Vape? Never Used Electronic Cigarettes [email or web address] Information not available 02/06/2021 Alcohol Use Yes [email or web address] Information n ot available 02/06/2021 Alcohol Amount Occasional [email or web address] Informatio n not available 02/06/2021 Caffeine Use Yes Information not available 02/06/2021 Caffeine Type Coffee [email or web address] Information not available 02/06/2021 Caffeine Amount 1 Cup [email or web address] Information not available 02/06/2021 Illicit Drug Use No [email or web address] Information not available 02/06/2021 What Was The Date Of Your Most Recent Tobacco Screening? 02/06/2021 Information not available 02/06/2021 Do You Or Have You Ever Used Smokeless Tobacco? Never Used Smokeless Tobacco [email or web address] Information not available 02/06/2021 Sex: Female Functional Status None recorded. Mental Status None recorded. Family History Relationship Description Onset Age of this Age Resolved Age Notes LastModified by Organization Details LastModified Time Father Malignant tumor of colon 50 Not sure Not available 02/06/2021 14:00:19 Paternal Aunt Malignant tumor of stomach 60 [email or web address] Not available 2020 11:40:10 Mother Coronary arterioscler osis [email or web address] Not available 2020 11:41:07 Mother Cerebrovascu lar accident [email or web address] Not available 05/2021 11:40:37 Mother Diabetes mellitus [email or web address] Not available 2020 11:40:45 Medical History Condition Response Coronary Artery Disease Y Other Y Atrial Fibrillation N Kidney Stones N Hyperthyroidism N Hernia N Glaucoma N Depression N COPD N Hypothyroidism N Accidental Bowel Leakage Y Headaches/Migraines N Deep Vein Thrombosis N Cardiac Dysrhythmia N Anxiety Disorder N MRSA/VRE Exposure N Genital Herpes N Diverticulosis N Cancer N Stroke N Head Trauma N Genital Warts N Crohn's Disease N Liver Disease/Hepatitis N HIV/AIDS N High Cholesterol Y Irritable Bowel Syndrome N Autoimmune Disease N Kidney Disease N Anemia Y Celiac Disease N Arthritis/Gout Y Anal/Rectal Trauma/Injury N Diabetes N Cataracts Y Bleeding Disorder N Seizures/Epilepsy N Congestive Heart Failure (CHF) N Diverticulitis N Heart Attack Y Asthma N Reflux/GERD Y Ulcerative Colitis N Sleep Apnea N Mitral Valve Prolapse Y Aneurysm N Heart Disease Y Pulmonary Embolism N Hypertension Y Colon/Rectal Polyps N Gynecological History Statement/Question Response Number of Pregnancies? 4 Tear or Laceration During Delivery? N Could You Be or Are You Currently Pregna nt? N Number of Vaginal Deliveries? 2 Date of Last Mammogram 08/31/2018 Accidental Bowel Leakage Post Delivery? N Episiotomy During Delivery? Y Obstetrics History GPAL:G 0 P 0 0 0 0 Past Encounters Encounter ID Performer Location Encounter Start Date Encounter Closed Date Diagnosis/Indication Diagnosis SNOMED-CT Code Diagnosis ICD10 Code Diagnosis Note [id number] Ayed Peña MD Main Office [address] [place] [address] 02/06/2021 11:19:27 02/06/2021 13:09:00 Pile reducible with difficulty 404916774 K64.2 Stage 3 internal hemorrhoid s: She is bleeding fairly heavily and is on warfarin and 81 mg aspirin. I discussed hemorrhoid s in general with her as well as the treatment options. I do not think she would get superintendent terminal good results with infrared coagulatio n and she has an increased risk of bleeding with every treatment given her blood thinners. I have referred her to [facility] Dept. of C&R Surgery and she has an appointmen t on 02/07/21 at the [facility] location. Pat has the contact informatio n. I advised that if she does become orthostati c or have CP/pressur e/worsenin g SOB/MERCER she needs to go to an ER. I have requested her blood work results from last week. External hemorrhoids 239 23444 K64.4 See above. History of placement of stent for coronary artery disease 214712876 Z95.5 She is on the warfarin and 81 mg aspirin. Rheumatoid arthritis 698 23698 M06.9 She is on the leflunomid e. Essential hypertension 39426040 I10 Family his tory of cancer of colon 853258940 Z80.0 Her father possibly had colon cancer and at the age of 50. I have requested copies of her last 2 colonoscop ies from her PCP's office. Gastroesop hageal reflux disease without esophagitis 156542497 K21.9 Chronic ob structive pulmonary disease 26853914 J44.9 Health Concerns Section Related Observation LastModified by Organization Detai ls LastModified Time None Recorded Concern Status LastModified by Organization Details LastModified Time None Recorded Advance Directives Directive N: Payers Encounter Date Sequence Insurance Name Policy Number Policy Mccall Covered Member ID Mccall Member ID Guarantor Name 02/06/2021 1 [employer] (MEDICARE REPLACEMENT HMO) [id number] Laura Clfiford [id number] Laura Clifford Notes Date Note Type Note Provider Name and Address Organization Details Recorded Time 02/06/2021 text/html This is a 70 yea r old woman (on chronic warfarin and 81 mg ASA daily) who has had symptoms from her hemorrhoids on and off for 46 years. Her symptoms have been persistent for 5 years, greatly increased earlier this year and she has had persistent heavy bleeding for the last 2 - 3 weeks. She presents today for an evaluation and to discuss her treatment options. Bleeding: She usually sees BRB on the wipe and some drip in the water occasionally with BM's. For 2 - 3 weeks she has had very heavy BRB and clots filling the water with every BM and urination. She has leakage of blood and stool throughout the day and has to change a Depends 3 times daily. She saw her PCP last week and had blood work done. She states everything was OK . I have requested those results as she does not have them with her and they are not in shared records. She is very fatigued but does not have orthostatic symptoms, CP/pressure, SOB (worse than her usual) or MERCER (worse than usual). Pain: She has a lot of pain and pressure by the end of the day stating because I am having BM's all day . Itching: She has a lot of external irritation and itching. Discharge: She has had long standing difficulty getting and staying clean after BM's. 2 weeks ago she had an episode of full incontinence and since then has had to wear the Depends due to leakage of blood and stool. Prolapse: She has significant swelling but cannot say if this is external swelling or true internal prolapse. Discomfort: She has a lot of internal pressure, sense of always needing to have a BM, feels blocked when trying to pass a BM and a sense of incomplete emptying. Previous Hemorrhoid Treatment: Her PCP prescribed hydrocortisone suppositories and cream 2 weeks ago but she does not feel it has helped. Previous Lower GI Endoscopy: She has had about 5 colonoscopies and does not think she has ever had polyps. Scope #4 was in 07/2013 and scope #5 was in 03/2018. I have requested these reports from her PCP. She thinks her father at age 50 of colon cancer but she is not sure . Bowel Habits: Her BM's have been very irregular for the last 2 weeks - she has had soft BM's multiple times daily. Ayde Peña MD [address] [facility], [place], [address], [facility] - [facility] 02/06/2021 16:10:16 OBGyn Episode No OBEpisode recorded.
--- OUTSIDE RECORDS SUMMARY | 2024-12-16 08:20 | XMS_ITS | Encounter Summary ---
Author Organization [facility] Address [address] [facility] [place] [address] Care Team Providers Care Termite Exterminator Name Role Phone Filippo Carpenter MD Unavailable [phone] Encounter Details Date Type Department Care Team (Late st Contact Info) Description 01/27/2019 Lab Requisition [facility] [address] [facility] [place] [address] Bettina Espino DO [address] [facility] [address] [place] [address] Social History Tobacco Use Types Packs/Day Years Used Date Smoking Tobacco: Never Alcohol Use Standard Drinks/Week Comments No 0 (1 standard drink = 0.6 oz pur e alcohol) Comments No Sex and Gender Information Value Date Recorded Sex Assigned at Not on file 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 Gender Identity Not on file Sexual Orientation Not on file documented as of this encounter Plan of Treatment Not on file documented as of this encounter Procedures Procedure Name Priority Date/Time Associated Diagnosis Comments DERMATOPATHOLOGY Routine 01/26/2019 12:0 0 AM CDT documented in this encounter Results * DERMATOPATHOLOGY (01/26/2019 12:00 AM CDT) Case Report Dermatopathology Report Case: [id number] Authorizing Provider: Bettina Espino DO Collected: 01/26/2019 12:00 AM Pathologist: Maura James MD Received: 01/27/2019 10:42 AM Specimen: Skin, left chest 12:24 PM CDT DERMATOPATHOLOGY LABORATORY Final Diagnosis Specimen A. SKIN, left chest: VERRUCA VULGARIS (B07.8) 12:24 PM CDT DERMATOPATHOLOGY LABORATORY Clinical History R/O ISK vs VV R/O SCC, non-healing. 12:24 PM CDT DERMATOPATHOLOGY LABORATORY Gross Description Specimen A: Received is one formalin filled container labeled with the patient's name and designated left chest. The specimen consists of a shave measuring [id number]. Jar 0. 12:24 PM CDT DERMATOPATHOLOGY LABORATORY [...] determined by the Dermatopathology Laboratory at [facility], directed by Dr. Krys Villagran. These tests need not be, and therefore are not, approved by the [place] Food and Drug Administration. The tests are used for clinical purposes. Billing Codes Specimen Charges Stain Charges 37282 1 12:24 PM CDT DERMATOPATHOLOGY LABORATORY Embedded Images 12:24 PM CDT DERMATOPATHOLOGY LABORATORY Pathology/Cytolog y TISSUE SPECIMEN FROM SKIN / Unknown 01/26/2019 01/27/2019 10:42 AM CDT Bettina Espino DO LAB - PATHOLOGY/CYTOLOGY ORDERABLES Final Result DERMATOPATHOLOGY LABORATORY [facility] - Department of Dermatology [address] [place] [address], 5th Floor Lab [address] [phone] documented in this encounter Visit Diagnoses Not on filedocumented in this encounter Care Teams Termite Exterminator Relationship Specialty Start Date End Date Filippo Carpenter MD Physician Rheumatology 08/10/11 documented as of this encounter
--- OUTSIDE RECORDS SUMMARY | 2024-12-16 08:20 | XMS_ITS | Clinical Summary ---
Author Organization [facility] Address [address] [facility] [address] [place] [address] Phone Care Team Providers Care Air Conditioning Insulation Installer Name Role Phone Parminder Rojas MD Primary Care Provider [phone] Allergies Active Allergy Reactions Criticality Noted Date [...] UNIT Tablet Take by mouth. Activ e [place]-3 Fatty Acids (FISH OIL PO) Take by [...] 88 04/11/2021 9:59 AM CDT Temperature 36.5 C (97.7 F) 04/11/2021 9:59 AM CDT Respiratory Rate 20 04/11/2021 9:59 AM CDT Oxygen Saturation 94% 04/11/2021 9:59 AM CDT Inhaled Oxygen Concentration - - Weight 88.5 kg (195 lb) 04/11/2021 9:59 AM CDT Height 160 cm (5' 3 ) 04/11/2021 9:59 AM CDT Body Mass Index 34.54 04/11/2021 9:59 AM CDT Plan of Treatment Health Maintenance Due Date Last Done Comments Hepatitis C Virus (HCV) Screening 1950 TdaP Immunization 1950 Cologuard 02/12/2002 Immunochemical Fecal Occult Blood 02/12/2002 Respiratory Syncytial Virus (RSV) Immunization (Adult) [...] to Health Maintenance Results * COLONOSCOPY (04/01/2018) us Humphrey Costello DO PROCEDURE/MINOR SURGICAL ORDERA BLES Final Result from Last 3 Months or Most Recently Relevant to Health Maintenance Insurance MEDICARE C [employer] Care Teams Air Conditioning Insulation Installer Relationship Specialty Start Date End Date Parminder Rojas MD [address] [id number] PCP - General Family Medicine 04/08/18
--- OUTSIDE RECORDS SUMMARY | 2024-12-16 08:20 | XMS_ITS | Referral Summary ---
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 Gender Identity Not on file Sexual Orientation Not on file Last Filed Vital Signs Vital Sign Reading Time Taken Comments Blood Pressure 161/74 08/26/2024 1:13 PM SERVICE STATION HELPER Pulse 63 08/26/2024 1:13 PM SERVICE STATION HELPER Temperature 36.1 C (96.9 F) 08/06/2021 1:42 PM SERVICE STATION HELPER Respiratory Rate 16 07/20/2024 9:06 AM SERVICE STATION HELPER Oxygen Saturation 92% 07/20/2024 9:06 AM SERVICE STATION HELPER Inhaled Oxygen Concentration - - Weight 81.6 kg (180 lb) 09/14/2024 12:16 PM SERVICE STATION HELPER Height 154.9 cm (5' 1 ) 09/14/2024 12:16 PM SERVICE STATION HELPER Body Mass Index 34.01 09/14/2024 12:16 PM SERVICE STATION HELPER Plan of Treatment Not on file Procedures [...] MD LAB BLOOD ORDERABLES Fin al Result [facility] [address] Department [place] [address] * (ABNORMAL) Differential, auto (12/01/2024 11:11 AM CDT) Neutrophil abs 4.61 1.50 - 6.50 K/cumm Imm gran abs 0.05 0.00 - 0.10 K/cumm [facility] Lymphocyte abs 1.45 0.80 - 3.30 K/cumm [facility] Monocyte abs 0.88(H) 0.20 - 0.80 K/cumm [facility] Eosinophil abs 0.26 0.00 - 0.50 K/cumm [facility] Basophil abs 0.08 0.00 - 0.10 K/cumm [facility] Neutrophil pct 62.9 % [facility] Comment: Interpretive Data Percent cell count reference ranges are not reported, since discordance with absolute values may lead to misinterpretation of CBC data. Current Interpretive Data was last revised on 2017. Imm gran pct 0.7 % [facility] Comment: Interpretive Data Percent cell count reference ranges are not reported, since discordance with absolute values may lead to misinterpretation of CBC data. Current Interpretive Data was last revised on 2017. Lymphocyte pct 19.8 % [facility] Comment: Interpretive Data Percent cell count reference ranges are not reported, since discordance with absolute values may lead to misinterpretation of CBC data. Current Interpretive Data was last revised on 2017. Monocyte pct 12.0 % [facility] Comment: Interpretive Data Percent cell count reference ranges are not reported, since discordance with absolute values may lead to misinterpretation of CBC data. Current Interpretive Data was last revised on 2017. Eosinophil pct 3.5 % [facility] Comment: Interpretive Data Percent cell count reference ranges are not reported, since discordance with absolute values may lead to misinterpretation of CBC data. Current Interpretive Data was last revised on 2017. Basophil pct 1.1 % [facility] Comment: Interpretive Data Percent cell count reference ranges are not reported, since discordance with absolute values may lead to misinterpretation of CBC data. Current Interpretive Data was last revised on 2017. Blood 12/01/2024 11:1 1 AM CDT 12/01/2024 12:21 PM CDT us Filippo Carpenter MD LAB BLOOD ORDERABLES Fin al Result Performing Organization Address [facility]/ZIP Co de Phone Number [facility] [address] Department [place] [address] * (ABNORMAL) CBC with auto differential (12/01/2024 11:11 AM CDT) WBC 7.33 3.80 - 9.90 K/cumm Hgb 13.0 11.9 - 15.5 g/dL [facility] Hct 40.6 35.6 - 45.5 % [facility] Plt 273 150 - 400 K/cumm [facility] MPV 11.9 9.1 - 12.3 fL [facility] RBC 4.41 3.90 - 5.20 M/cumm [facility] MCV 92.1 81.3 - 96.4 fL [facility] MCH 29.5 27.1 - 33.3 pg [facility] MCHC 32.0(L) 32.3 - 35.7 g/dL [facility] RDW CV 14.8 11.1 - 14.9 % [facility] RDW SD 48.4(H) 35.7 - 48.1 fL [facility] NRBC abs 0.00 0.00 - 0.01 K/cumm [facility] Blood 12/01/2024 11:1 1 AM CDT 12/01/2024 12:21 PM CDT us Filippo Carpenter MD LAB BLOOD ORDERABLES Fin al Result Performing Organization Address City/[facility]/ZIP Co de Phone Number [facility] [address] Department [place] [address] * Creatinine (12/01/2024 11:11 AM CDT) Creatinine 0.74 0.60 - 1.10 mg/dL Blood 12/01/2024 11:1 1 AM CDT 12/01/2024 12:21 PM CDT Filippo Carpenter MD LAB BLOOD ORDERABLES Fin al Result Performing Organization Address City/[facility]/ZIP Co de Phone Number [facility] [address] [facility] [place] [address] * (ABNORMAL) Hepatic function panel (12/01/2024 11:11 AM CDT) Bilirubin, total 0.4 0.1 - 1.2 mg/dL Bilirubin, direct 0.2 0.1 - 0.3 mg/dL [facility] Protein, pl 6.4(L) 6.5 - 8.5 g/dL [facility] Albumin 3.6 3.5 - 5.0 g/dL [facility] Alk phos 53 40 - 130 Units/L [facility] ALT 14 7 - 45 Units/L [facility] AST 17 10 - 45 Units/L [facility] Blood 12/01/2024 11:1 1 AM CDT 12/01/2024 12:21 PM CDT Filippo Carpenter MD LAB BLOOD ORDERABLES Fin al Result [facility] [address] Department [place] [address] * SCAN - NEUROLOGY (11/29/2024 10:50 AM CDT) Anatomical Region Laterality Modality Other Nicole Brumfield MD Final Result from Last 3 Months Insurance [employer] Care Teams Pst Specialist Relationship Specialty Start Date End Date Parminder Rojas MD PCP - General 01/19/14 Yannick Guevara MD [phone] [place] [address] Surgeon Colon and Rectal Surgery 02/07/21 Ayde Peña MD [address] [place] [address] Referring Physician Family Medicine 02/07/21
--- OUTSIDE RECORDS SUMMARY | 2024-12-16 08:20 | XMS_ITS | Clinical Summary ---
Author Organization [facility] Address [address] [place] [address] Care Team Providers Care Acoustical Material Worker Name Role Phone Max Carpenter MD Unavailable [phone] Source Comments [facility],non-owned Affiliates and Associated Physician Practices is amultiple site organization consisting of ambulatory clinics and hospital sitesin [place], [place], [place] and [place]. This disclosure is being madepursuant to the Care Everywhere program and may not contain all information available regarding this patient. Last updated 18.[facility] Allergies Active Allergy Reactions Criticality Noted Date Comments Codeine Nausea and/or Vomiting 03/26/2011 Codeine 04/28/2011 Medications * Be aware that medications may not be up to date on this document. Alwaysverify current medications with the patient. atenolol (TENORMIN) 25 MG tablet once daily. Active etodolac (LODINE) 400 MG tablet 2 times daily. Activ e leflunomide (ARAVA) 20 MG tablet once daily. Active pramipexole (MIRAPEX) 0.5 MG tablet once daily. Active hydroxychloroqu ine (PLAQUENIL) 200 MG tablet 2 times daily. A ctive ranitidine (ZANTAC) 300 MG tablet once daily. Active amLODIPine (NORVASC) 5 MG tablet once daily. Active TRIAMTERENE PO Three times a week. Active leflunomide (ARAVA) 20 MG tablet Take 20 mg by mouth once daily. Active hydroxychloroqu ine (PLAQUENIL) 200 MG tablet Take 200 mg [...] once daily. Active fish oil/omega-3 fatty acids (PROMEGA;CARDI- OMEGA 3) 1000 MG capsule Take 1,000 mg by mouth daily with food. Active diazepam (VALIUM) 5 MG tabletIndicatio ns:Muscle Spasticity Take 5 mg by mouth 3 times daily as needed. Indications: Muscle Spasticity Active hydrocodone-devendra taminophen (NORCO) 5-325 MG tablet Take 1-2 Tabs by mouth every 4 hours as needed for Pain. 40 Tab 1 1 Active diazepam (VALIUM) 5 MG tablet Take 1 Tab by mouth 3 times daily as needed. 90 Tab 2 1 Active ketorolac (TORADOL) 10 MG tablet 1 by mouth TID x 5 days then start the Voltaren 15 Tab 0 1 Active diclofenac sodium (VOLTAREN) 75 MG tablet Take 1 Tab by mouth 2 times daily. 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 Gender Identity Not on file Sexual Orientation Not on file Last Filed Vital Signs Vital Sign Reading Time Taken Comments Blood Pressure 134/68 07/22/2011 4:17 PM MEXICAN FOOD MAKER Pulse 81 07/22/2011 4:17 PM MEXICAN FOOD MAKER Temperature 36.9 C (98.5 F) 07/22/2011 4:17 PM MEXICAN FOOD MAKER Respiratory Rate 18 07/22/2011 4:17 PM MEXICAN FOOD MAKER Oxygen Saturation 96% 07/22/2011 4:17 PM MEXICAN FOOD MAKER Inhaled Oxygen Concentration - - Weight 104.3 kg (230 lb) 07/22/2011 6:45 AM MEXICAN FOOD MAKER Height 160 cm (5' 3 ) 07/22/2011 6:45 AM MEXICAN FOOD MAKER Body Mass Index 40.74 07/22/2011 6:45 AM MEXICAN FOOD MAKER Plan of Treatment Health Maintenance Due Date [...] VACCINE ( - 2023-2 5 season) 2024 DEPRESSION SCREENING 08/31/2024 INFLUENZA VACCINE (Season Ended) 2025 HEPATITIS B VACCINE Aged Out No longe r eligible based on patient's age to complete this topic HIB VACCINE Aged Out No longer eligi ble based on patient's age to complete this topic HPV VACCINE Aged Out No longer eligi ble based on patient's age to complete this topic MENINGOCOCCAL (Group B) VACC INE SHARED DECISION-MAKING Aged Out No longer eligibl e based on patient's age to complete this topic MENINGOCOCCAL GROUPS A/C/Y/W VACCINE Aged Out No longer eligible b ased on patient's age to complete this topic Insurance [employer] A[employer] MEDICARE [facility] SELF PAY NO INSURANCE Member Subscriber Plan / Payer (Ef fective for All Dates) Name:Laura Valenzuela Member ID:Not on file Relation to Subscriber:Not on file Name:LAURA VALENZUELA Subscriber ID:Not on file Address: [address] [place] [address] Payer ID:Not on file Group ID:Not on file Type:Self Pay Address: [place], [place] Advance Directives * FULL RESUSCITATION (Latest Code Status on File) Date Activated Date Inactivated Comments 07/22/2011 12:27 PM 07/23/2011 6:58 AM Care Teams Acoustical Material Worker Relationship Specialty Start Date End Date Max Carpenter MD Physician Rheumatology 08/10/11
--- OUTSIDE RECORDS SUMMARY | 2024-12-16 08:20 | XMS_ITS | Patient Health Record ---
Author Organization [facility] Address [address] [place] [address] Care Team Providers Care Desizing Machine Back Tender Name Role Phone Sammie RONDON, Parminder Primary Care Provider Unavail able Filippo Jenkins Unavailable [phone] Allergies Allergen (clinical drug ingredient) Drug/Non Drug Allergy documented on EMR Reaction Allergy Type Onset Date Status Amoxicillin ER Unknown Drug Allergy Ac tive codeine Codeine Unknown Drug Allergy 11/05/2004 Active Results Component Value Reference Range Notes CBC w auto diff Reviewed date:05/25/2024 06:19:32 AM Interpretation: Performing Lab:[facility] , [facility]. [facility] [address] Notes/Report: WBC 7.1 3.8-9.9 K/cumm Hgb 13.4 11.9-15.5 g/dL Hct 44.7 35.6-45.5 % Platelet Ct 271 150-400 K/cumm MPV 12.6 9.1-12.3 fL RBC 4.84 3.90-5.20 M/cumm MCV 92.4 81.3-96.4 fL MCH 27.7 27.1-33.3 pg MCHC 30.0 32.3-35.7 g/dL RDW CV 16.7 11.1-14.9 % RDW SD 55.3 35.7-48.1 fL NRBC Abs Auto 0.00 0.00-0.01 K/cumm Creatinine Reviewed date:05/25/2024 06:16:23 AM Interpretation: Performing Lab:[facility] , [address] [place] [id number] Notes/Report: Creatinine 0.80 0.60-1.10 mg/dL Hep Func Panel Reviewed date:05/25/2024 06:15:44 AM Interpretation: Performing Lab:[facility] , [address] [place] [address] Notes/Report: Total Bilirubin 0.5 0.1-1.2 mg/dL Bilirubin, Direct 0.2 0.1-0.3 mg/dL Plasma Total Protein 6.8 6.5-8.5 g/dL Albumin 4.1 3.5-5.0 g/dL Alkaline Phosphatase 58 40-130 Units/L ALT 11 7-45 Units/L AST 16 10-45 Units/L eGFR Reviewed date:12/01/2024 12:56:10 PM Interpretation: Performing Lab:[facility] , [address] [place] [address]. [place] [address] Notes/Report: eGFR 86 >=60 mL/min/1.73 m2 Approach to GFR Estimation: Recommendations of the NKF-ASK Task Force on Reassessing the Inclusion of Race in Diagnosing Kidney Disease, JASN 2020). The CKD-EPI equation should not be used for patients with unstable renal function and has not been validated in children and those over 70. Current interpretive data was last reviewed 2021. Interpretive Data Reference Interval Normal >/= 90 [...] by the National Kidney Foundation (A Unifying Differential Automated Reviewed date:12/01/2024 12:56:18 PM Interpretation: Performing Lab:[facility] , [address] [place] [address]. [facility] [address] Notes/Report: Neut Abs 4.61 1.50-6.50 K/cumm ImmGran Abs 0.05 0.00-0.10 K/cumm Lymphocyte Abs 1.45 0.80-3.30 K/cumm [place] Abs 0.88 0.20-0.80 K/cumm Eos Abs 0.26 0.00-0.50 K/cumm Baso Abs 0.08 0.00-0.10 K/cumm Neut Pct 62.9 Interpretive Data Percent cell count reference ranges are not reported, since discordance with absolute values may lead to misinterpretation of CBC data. Current Interpretive Data was last revised on 2017. ImmGran Pct 0.7 Interpretive Data Percent cell count reference ranges are not reported, since discordance with absolute values may lead to misinterpretation of CBC data. Current Interpretive Data was last revised on 2017. Lymph Pct 19.8 Interpretive Data Percent cell count reference ranges are not reported, since discordance with absolute values may lead to misinterpretation of CBC data. Current Interpretive Data was last revised on 2017. [place] Pct 12.0 Interpretive Data Percent cell count reference ranges are not reported, since discordance with absolute values may lead to misinterpretation of CBC data. Current Interpretive Data was last revised on 2017. Eos Pct 3.5 Interpretive Data Percent cell count reference ranges are not reported, since discordance with absolute values may lead to misinterpretation of CBC data. Current Interpretive Data was last revised on 2017. Baso Pct 1.1 Interpretive Data Percent cell count reference ranges are not reported, since discordance with absolute values may lead to misinterpretation of CBC data. Current Interpretive Data was last revised on 2017. eGFR Reviewed date:09/03/2024 03:29:31 PM Interpretation: Performing Lab:[facility] , [address] [place] [address]. [facility] [address] Notes/Report: eGFR >90 >=60 mL/min/1.73 m2 Interpretive [...] Automated Reviewed date:09/03/2024 03:29:31 PM Interpretation: Performing Lab:[facility] , [address] [place] [address]. [facility] [address] Notes/Report: Neut Abs 4.5 1.5-6.5 K/cumm ImmGran Abs 0.0 0.0-0.1 K/cumm Lymphocyte Abs 1.3 0.8-3.3 K/cumm [place] Abs 0.8 0.2-0.8 K/cumm Eos Abs 0.1 [...] Interpretive Data was last revised on 2017. [place] Pct 12.1 Interpretive Data Percent cell count [...] eGFR Reviewed date:05/25/2024 06:17:27 AM Interpretation: Performing Lab:[facility] , [address] [place] [address]. [facility] [address] Notes/Report: eGFR 78 >=60 mL/min/1.73 m2 Interpretive [...] Automated Reviewed date:05/25/2024 06:17:21 AM Interpretation: Performing Lab:[facility] , [address] [place] [address]. [facility] [address] Notes/Report: Neut Abs 4.7 1.5-6.5 K/cumm ImmGran Abs 0.0 0.0-0.1 K/cumm Lymphocyte Abs 1.2 0.8-3.3 K/cumm [place] Abs 0.8 0.2-0.8 K/cumm Eos Abs 0.2 [...] Interpretive Data was last revised on 2017. [place] Pct 11.6 Interpretive Data Percent cell count [...] Interpretive Data was last revised on 2017. Hep Func Panel Reviewed date:09/03/2024 03:29:31 PM Interpretation: Performing Lab:[facility] , [address] [place] [address]. [place] [address] Notes/Report: Total Bilirubin 0.4 0.1-1.2 mg/dL Bilirubin, Direct 0.2 0.1-0.3 mg/dL Plasma Total Protein 6.2 6.5-8.5 g/dL Albumin 4.1 3.5-5.0 g/dL Alkaline Phosphatase 50 40-130 Units/L ALT 16 7-45 Units/L AST 18 10-45 Units/L Creatinine Reviewed date:09/03/2024 03:29:31 PM Interpretation: Performing Lab:[facility] , [address] [place] [address]. [place] [address] Notes/Report: Creatinine 0.68 0.60-1.10 mg/dL CBC w auto diff Reviewed date:09/03/2024 03:29:31 PM Interpretation: Performing Lab:[facility] , [address] [place] [address]. [place] [address] Notes/Report: WBC 6.8 3.8-9.9 K/cumm Hgb 13.9 11.9-15.5 g/dL Hct 43.6 35.6-45.5 % Platelet Ct 259 150-400 K/cumm MPV 12.1 9.1-12.3 fL RBC 4.61 3.90-5.20 M/cumm MCV 94.6 81.3-96.4 fL MCH 30.2 27.1-33.3 pg MCHC 31.9 32.3-35.7 g/dL RDW CV 16.0 11.1-14.9 % RDW SD 54.6 35.7-48.1 fL NRBC Abs Auto 0.00 0.00-0.01 K/cumm Hep Func Panel Reviewed date:12/01/2024 12:55:55 PM Interpretation: Performing Lab:[facility] , [address] [place] [address]. [facility] [address] Notes/Report: Total Bilirubin 0.4 0.1-1.2 mg/dL Bilirubin, Direct 0.2 0.1-0.3 mg/dL Plasma Total Protein 6.4 6.5-8.5 g/dL Albumin 3.6 3.5-5.0 g/dL Alkaline Phosphatase 53 40-130 Units/L ALT 14 7-45 Units/L AST 17 10-45 Units/L Creatinine Reviewed date:12/01/2024 12:56:00 PM Interpretation: Performing Lab:[facility] , [address] [place] [address]. [facility] [address] Notes/Report: Creatinine 0.74 0.60-1.10 mg/dL CBC w auto diff Reviewed date:12/01/2024 12:56:05 PM Interpretation: Performing Lab:[facility] , [address] [place] [address]. [facility] [address] Notes/Report: WBC 7.33 3.80-9.90 K/cumm Hgb 13.0 11.9-15.5 g/dL Hct 40.6 35.6-45.5 % Platelet Ct 273 150-400 K/cumm MPV 11.9 9.1-12.3 fL RBC 4.41 3.90-5.20 M/cumm MCV 92.1 81.3-96.4 fL MCH 29.5 27.1-33.3 pg MCHC 32.0 32.3-35.7 g/dL RDW CV 14.8 11.1-14.9 % RDW SD 48.4 35.7-48.1 fL [facility] Abs Auto 0.00 0.00-0.01 K/cumm Reason For Referral No Information Medications Medication SIG (Take, Route, Frequency, Duration) Notes Start Date End Date Status Pravastatin Sodium 10 MG take 1 tablet ( 10 mg) by oral route once daily at bedtime Oral 1 Active Praluent 150 MG/ML inject 1 milliliter (150 mg) by subcutaneous route every 2 weeks in the abdomen, thigh, or upper arm rotating injection sites Subcutaneous [id number] Active Leflunomide 20 MG TAKE 1 TABLET [...] 4 WEEKS Subcutaneous for 28 Days Active Lomotil 2.5-0.025 MG take 2 tablets (5 m g) by oral route once daily Oral as needed Active Stiolto Respimat 2.5-2.5 MCG/ACT inhale 2 puffs by inhalation route once daily at the same time each day Inhalation 1 Active Vitamin D (Ergocalciferol) 65493 UNIT Oral Active Pantoprazole Sodium 40 MG take 1 tablet (40 mg) by oral route once daily Oral 1 Active Proventil HFA 108 (90 Base) MCG/ACT inhale 1 puff (90 mcg) by inhalation route every 6 hours as needed Inhalation 4 Not-Taking Pramipexole Dihydrochloride 0.5 MG take 1 tablet (0.5 mg) by oral route 2-3 hours before bedtime Oral 0 Active Furosemide 40 MG take 1 tablet (40 mg ) by oral route once daily Oral 1 Active Sotalol HCl 80 MG TAKE 1 TABLET BY ORA L ROUTE 2 TIMES EVERY DAY Oral 01/25/2019 Active Metoprolol Tartrate 25 MG take 1 tablet (25 mg) by oral route 2 times per day Oral 2 Active Xarelto 20 MG take 1 tablet (20 mg ) by oral route once daily with the evening meal Oral 1 Active Problems Problem Type SNOMED Code ICD Code Onset Dates Problem Status W/U Status Risk Notes Problem 654837384 Other specified rheumatoid arthritis, 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 Problem 640663372 Other buttermaker continuous churn (current) drug therapy (Z79.899) Active confirmed Problem Rheumatoid arthritis (63537419) Rheumatoid arthritis, unspecified (M06.9) 5 Active confirmed Vital Signs Heart Rate 107 /min 12/01/2024 Temperature 97.6 degrees Fahrenheit 12/01/2024 Blood pressure diastolic 76 mm Hg 12/01/2024 Oximetry 95 % 12/01/2024 Height-cm 160.02 cm 12/01/2024 Weight-kg 85.28 kg 12/01/2024 Height 63 in 12/01/2024 Blood pressure systolic 134 mm Hg 12/01/2024 Weight 188 lbs 12/01/2024 BMI 33.3 kg/m2 12/01/2024 Encounters Encounter Location Date Provider Diagnosis [facility] [address] [address] 02/19/2024 Filippo DiValerio Rheumatoid arthritis, unspecified M06.9 and Other retirement (current) drug therapy Z79.899 [facility] [address] [address] 05/24/2024 Filippo DiValerio Other buttermaker continuous churn (current) drug therapy Z79.899 and Other specified rheumatoid arthritis, 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 [facility] [address] [address] 09/02/2024 Filippo DiValerio Other buttermaker continuous churn (current) drug therapy Z79.899 and Other specified rheumatoid arthritis, 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 [facility] [address] [address] 12/01/2024 Filippo DiValerio Other buttermaker continuous churn (current) drug therapy Z79.899 and Other specified rheumatoid arthritis, 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 [facility] [address] [address] 02/19/2024 Filippo DiValerio Assessments Encounter Date Diagnosis (ICD Code) Assessment Notes Treatment Notes Treatment Clinical Notes Section Notes 02/19/2024 Rheumatoid arthritis, unspecified (ICD-10 - M06.9) 05/24/2024 Other specified rheumatoid arthritis, multiple sites (ICD-10 - M06.89) 05/24/2024 Other buttermaker continuous churn (current) drug therapy (ICD-10 - Z79.899) 09/02/2024 Other specified rheumatoid arthritis, multiple sites (ICD-10 - M06.89) 09/02/2024 Other buttermaker continuous churn (current) drug therapy (ICD-10 - Z79.899) 12/01/2024 Other specified rheumatoid arthritis, multiple sites (ICD-10 - M06.89) 12/01/2024 Other buttermaker continuous churn (current) drug therapy (ICD-10 - Z79.899) 02/19/2024 Other retirement (current) drug therapy (ICD-10 - Z79.899) Plan Of Treatment Pending Test Test Name Order Date CBC With Differential/Platelet 3 CBC With Differential/Platelet 4 CBC With Differential/Platelet 4 Hepatic Function Panel (7) 02/19/2024 Hepatic Function Panel (7) 11/20/2023 Hepatic Function Panel (7) 08/21/2023 ESR 02/19/2024 Creatinine 02/19/2024 Creatinine 08/21/2023 Creatinine 11/20/2023 Next Appt Details Provider Name:Filippo Rowland Astridkrys higinio, 03/02/2025 11:00:00 AM, [address] [facility] [address], [place], [address], Insurance Providers Payer Name Payer Address Payer Phone Subscriber Number Group Number Insured Name Patient Relationship to Insured Coverage Start Date Coverage End Date [facility] [address] [place] [address] [id number] Laura Clifford Self - patient is the insured [employer] [address] [place], [place] [id number] Laura Clifford Self - patient is the insured 1 DO NOT USE [id number] Laura Clifford Self - patient is the insured 8 [employer] [address] [address] [place] [address] [id number] Laura Clifford Self - patient is the insured 08/15/201 2 [employer] [address] [address] [place] [address] [id number] Laura Clifford Self - patient is the insured [employer] Medicare Ppo [address] [place] [address] [id number] Laura Clifford Self - patient is the insured Medical (General) History Surgical History Surgery Date(Month/Year)
[2024-12-16] MEDS: ASPIRIN 81 MG CHEWABLE TABLET 324 MG PO (08:30)
[2024-12-16 08:43] LABS: Basophils Absolute Auto 0.1 K/mm3 (0.0-0.1); Eosinophils Absolute Auto 0.3 K/mm3 (0-0.3); Eosinophils Percent Auto 3.9 % (0-4.4); Hematocrit 41.2 % (37.0-47.0); Hemoglobin 13.1 g/dL (12.0-15.0); Immature Granulocyte Absolute 0.02 K/mm3 (0.00-0.031); Immature Granulocyte Percent A 0.3 % (0-0.5); Lymphocytes Absolute Auto 1.41 K/mm3 (0.9-3.2); Lymphocytes Percent Auto 17.8 % (18.3-44.2); Mean Corpuscular HGB Conc 31.8 g/dl (32-36); Mean Corpuscular Hemoglobin 29.5 pg (26-34); Mean Corpuscular Volume 92.8 fl (80-100); Mean Platelet Volume 10.9 fl (7.4-10.4); Monocytes Absolute Auto 0.8 K/mm3 (0.1-0.6); Monocytes Percent Auto 10.5 % (2.6-8.5); Neutrophils Absolute Auto 5.3 K/mm3 (1.3-6.7); Neutrophils Percent Auto 66.5 % (45.5-73.1); Platelet Count Result 264 k/mm3 (150-375); Red Blood Count 4.44 M/mm3 (4.2-5.4); Red Cell Distribution Width 15.1 % (11.5-14.5); White Blood Count 7.9 K/mm3 (4.5-10.0)
[2024-12-16 08:53] LABS: Alanine Aminotransferase 16 U/L (6-35); Alkaline Phosphatase 66 U/L (38-126); Anion Gap 10 mmol/L (4-12); Aspartate Amino Transferase 20 U/L (14-36); Bilirubin,Total 0.7 mg/dL (0.2-1.3); Blood Urea Nitrogen 19 mg/dL (7-17); Calcium 8.9 mg/dL (8.4-10.2); Carbon Dioxide 31 mmol/L (22-30); Chloride 94 mmol/L (98-107); Estimated CRCL calculation 49 ml/min; Estimated Glomerular Filt Rate > 60; Glucose 121 mg/dL (65-110); Lipase 78 U/L (23-300); Potassium 3.3 mmol/L (3.4-5.0); Sodium 135 mmol/L (137-145)
--- OUTSIDE RECORDS SUMMARY | 2024-12-16 08:53 | XMS_ITS | Clinical Summary ---
Author Organization [facility] Address [address] [place] [address] Care Team Providers Care Leaf Blender Name Role Phone Parminder Rojas MD Primary Care Provider [phone] Allergies Active Allergy Reactions Criticality Noted Date [...] - 1-dose 75+ series) 02/12/[address] [place] [address] [employer] PPO MCR Care Teams Leaf Blender Relationship Specialty Start Date End Date Parminder Rojas MD [address] [place] [phone] PCP - General Family Practice 02/04/22
--- OUTSIDE RECORDS SUMMARY | 2024-12-16 08:55 | XMS_ITS | Clinical Summary ---
Author Organization [facility] Address [address] [place] [address] Care Team Providers Care Engraver Automatic Name Role Phone Parminder Rojas MD Primary Care Provider [phone] Yannick Guevara MD Unavailable [phone] Ayde Peña MD Unavailable [phone] Allergies Active Allergy Reactions Criticality Noted [...] Description 12/01/2024 11:10 AM CDT Lab [address] [address] 11/29/2024 Orders Only Neurology Nicole Brumfield MD [...] on file Legal Sex Female 2:00 AM PRACTICE ASSISTANT Gender Identity Not on file Sexual Orientation Not on file Obstetrics History Last Filed Vital Signs Vital Sign Reading Time Taken Comments Blood Pressure 161/74 08/26/2024 1:13 PM PRACTICE ASSISTANT Pulse 63 08/26/2024 1:13 PM PRACTICE ASSISTANT Temperature 36.1 C (96.9 F) 08/06/2021 1:42 PM PRACTICE ASSISTANT Respiratory Rate 16 07/20/2024 9:06 AM PRACTICE ASSISTANT Oxygen Saturation 92% 07/20/2024 9:06 AM PRACTICE ASSISTANT Inhaled Oxygen Concentration - - Weight 81.6 kg (180 lb) 09/14/2024 12:16 PM PRACTICE ASSISTANT Height 154.9 cm (5' 1 ) 09/14/2024 12:16 PM PRACTICE ASSISTANT Body Mass Index 34.01 09/14/2024 12:16 PM PRACTICE ASSISTANT Plan of Treatment Health Maintenance Due Date [...] LAB BLOOD ORDERABLES Fin al Result [facility] [address] [place] [address] [phone] * (ABNORMAL) Differential, auto (12/01/2024 11:11 AM CDT) Neutrophil abs 4.61 1.50 - 6.50 K/cumm Imm gran abs 0.05 0.00 - 0.10 K/cumm [facility] Lymphocyte abs 1.45 0.80 - 3.30 K/cumm [facility] Monocyte abs 0.88(H) 0.20 - 0.80 K/cumm [facility] Eosinophil abs 0.26 0.00 - 0.50 K/cumm [facility] Basophil abs 0.08 0.00 - 0.10 K/cumm [facility] Neutrophil pct 62.9 % [facility] Comment: Interpretive Data Percent cell count reference ranges are not reported, since discordance with absolute values may lead to misinterpretation of CBC data. Current Interpretive Data was last revised on 2017. Imm gran pct 0.7 % [facility] Comment: Interpretive Data Percent cell count reference ranges are not reported, since discordance with absolute values may lead to misinterpretation of CBC data. Current Interpretive Data was last revised on 2017. Lymphocyte pct 19.8 % [facility] Comment: Interpretive Data Percent cell count reference ranges are not reported, since discordance with absolute values may lead to misinterpretation of CBC data. Current Interpretive Data was last revised on 2017. Monocyte pct 12.0 % [facility] Comment: Interpretive Data Percent cell count reference ranges are not reported, since discordance with absolute values may lead to misinterpretation of CBC data. Current Interpretive Data was last revised on 2017. Eosinophil pct 3.5 % [facility] Comment: Interpretive Data Percent cell count reference ranges are not reported, since discordance with absolute values may lead to misinterpretation of CBC data. Current Interpretive Data was last revised on 2017. Basophil pct 1.1 % [facility] Comment: Interpretive Data Percent cell count reference ranges are not reported, since discordance with absolute values may lead to misinterpretation of CBC data. Current Interpretive Data was last revised on 2017. Blood 12/01/2024 11:1 1 AM CDT 12/01/2024 12:21 PM CDT us Filippo Carpenter MD LAB BLOOD ORDERABLES Fin al Result Performing Organization Address [facility] Co de Phone Number [facility] [address] [employer] [address] * (ABNORMAL) CBC with auto differential (12/01/2024 11:11 AM CDT) WBC 7.33 3.80 - 9.90 K/cumm Hgb 13.0 11.9 - 15.5 g/dL [facility] Hct 40.6 35.6 - 45.5 % [facility] Plt 273 150 - 400 K/cumm [facility] MPV 11.9 9.1 - 12.3 fL [facility] RBC 4.41 3.90 - 5.20 M/cumm [facility] MCV 92.1 81.3 - 96.4 fL [facility] MCH 29.5 27.1 - 33.3 pg [facility] MCHC 32.0(L) 32.3 - 35.7 g/dL [facility] RDW CV 14.8 11.1 - 14.9 % [facility] RDW SD 48.4(H) 35.7 - 48.1 fL [facility] NRBC abs 0.00 0.00 - 0.01 K/cumm [facility] Blood 12/01/2024 11:1 1 AM CDT 12/01/2024 12:21 PM CDT us Filippo Carpenter MD LAB BLOOD ORDERABLES Fin al Result [facility] [address] [place] [address] * Creatinine (12/01/2024 11:11 AM CDT) Creatinine 0.74 0.60 - 1.10 mg/dL Blood 12/01/2024 11:1 1 AM CDT 12/01/2024 12:21 PM CDT Filippo Carpenter MD LAB BLOOD ORDERABLES Fin al Result Performing Organization Address [facility] de Phone Number [facility] [address] [facility] [place] [address] * (ABNORMAL) Hepatic function panel (12/01/2024 11:11 AM CDT) [facility] Bilirubin, total 0.4 0.1 - 1.2 mg/dL Bilirubin, direct 0.2 0.1 - 0.3 mg/dL [facility] Protein, pl 6.4(L) 6.5 - 8.5 g/dL [facility] Albumin 3.6 3.5 - 5.0 g/dL [facility] Alk phos 53 40 - 130 Units/L [facility] ALT 14 7 - 45 Units/L [facility] AST 17 10 - 45 Units/L [facility] Blood 12/01/2024 11:1 1 AM CDT 12/01/2024 12:21 PM CDT Filippo Carpenter MD LAB BLOOD ORDERABLES Fin al Result Performing Organization Address [facility] de Phone Number [facility] [address] [place] [address] * SCAN - NEUROLOGY (11/29/2024 10:50 AM CDT) Anatomical Region Laterality Modality Other us Nicole Brumfield MD Final Result from Last 3 Months Insurance [employer] PPO [employer] P[employer] Care Teams Engraver Automatic Relationship Specialty Start Date End Date Parminder Rojas MD PCP - General 01/19/14 Yannick Guevara MD [phone] [place] [address] Surgeon Colon and Rectal Surgery 02/07/21 Ayde Peña MD [address] [facility] [address] [place] [address] Referring Physician Family Medicine 02/07/21
--- OUTSIDE RECORDS SUMMARY | 2024-12-16 08:55 | XMS_ITS | Encounter Summary ---
Author Organization [facility] Health Address [address] [place] [address] Care Team Providers Care Scout Sniper Name Role Phone Filippo Carpenter MD Unavailable [phone] Encounter Details Date Type Department Care Team (Late st Contact Info) Description 07/19/2020 Lab Requisition [facility] [address] [facility], [place] [address] Zora Gilmore MD [address] [facility] [address] [place] [address] Social History Tobacco Use Types Packs/Day Years Used Date Smoking Tobacco: Never Alcohol Use Standard Drinks/Week Comments No 0 (1 standard drink = 0.6 oz pur e alcohol) Comments No Sex and Gender Information Value Date Recorded Sex Assigned at Not on file Legal Sex Female 6:12 AM ORCHID HAND Gender Identity Not on file Sexual Orientation Not on file documented as of this encounter Plan of Treatment Not on file documented as of this encounter Procedures Procedure Name Priority Date/Time Associated Diagnosis Comments DERMATOPATHOLOGY Routine 07/18/2020 12:0 0 AM ORCHID HAND documented in this encounter Results * DERMATOPATHOLOGY (07/18/2020 12:00 AM ORCHID HAND) Case Report Dermatopathology Report Case: [id number] Authorizing Provider: Zora Gilmore MD Collected: 07/18/2020 12:00 AM Ordering Location: [facility] Lab Received: 07/19/2020 05:55 AM Pathologist: Miranda Brennan MD Specimen: Skin, nose tip 0 7:17 PM [facility] DERMATOPATHOLOGY LABORATORY Final Diagnosis Specimen A. SKIN, nose tip: ACTINIC KERATOSIS (L57.0) (see microscopic description) 0 7:17 PM [facility] DERMATOPATHOLOGY LABORATORY Clinical History R/O BCC,AK 0 7:17 PM [facility] DERMATOPATHOLOGY LABORATORY Gross Description Specimen A: Received is one formalin filled container labeled with the patient's name and designated nose tip. The specimen consists of a shave biopsy measuring 3x3x1 mm. Jar 0. 0 7:17 PM [facility] DERMATOPATHOLOGY LABORATORY Microscopic Description Specimen A. SKIN, nose tip: There is focal parakeratosis. The lower half of the epidermis shows disorderly maturation of keratinocytes with nuclear pleomorphism. Additional deeper sections were obtained and reviewed. 0 7:17 PM [facility] DERMATOPATHOLOGY LABORATORY Disclaimer An external and internal positive and negative controls are appropriate for the histochemical, immunohistochemical and immunofluorescence stain(s) in this case (if any), except where stated explicitly. The performance characteristics of the stain(s) cited in this report were developed and its performance characteristic determined by the Dermatopathology Laboratory at [facility], directed by Dr. Krys Villagran. These tests need not be, and therefore are not, approved by the [place] Food and Drug Administration. The tests are used for clinical purposes. Billing Codes Specimen Charges Stain Charges 41554 1 0 7:17 PM [facility] DERMATOPATHOLOGY LABORATORY Embedded Images 0 7:17 PM [facility] DERMATOPATHOLOGY LABORATORY Pathology/Cytolog y TISSUE SPECIMEN FROM SKIN / Unknown 07/18/2020 07/19/2020 5:55 AM ORCHID HAND us Zora Gilmore MD LAB - PATHOLOGY/CYTOLOGY ORD ERABLES Final Result DERMATOPATHOLOGY LABORATORY [facility] - Department of Dermatology [address] [phone] documented in this encounter Visit Diagnoses Not on filedocumented in this encounter Care Teams Scout Sniper Relationship Specialty Start Date End Date Filippo Carpenter MD Physician Rheumatology 08/10/11 documented as of this encounter
--- OUTSIDE RECORDS SUMMARY | 2024-12-16 08:55 | XMS_ITS | Referral Summary ---
Author Organization [facility] Address [address] [place] [address] Care Team Providers Care Rustic Terrazzo Setter Name Role Phone Parminder Rojas MD Primary Care Provider [phone] Yannick Guevara MD Unavailable [phone] Ayde Peña MD Unavailable [phone] Encounters Date Type Department Care Team Description 12/01/2024 11:10 AM CDT Lab [facility] [address] [place] [address] 11/29/2024 Orders Only Neurology Nicole Brumfield MD [...] on file Legal Sex Female 2:00 AM BAT BOY/GIRL Gender Identity Not on file Sexual Orientation Not on file Last Filed Vital Signs Vital Sign Reading Time Taken Comments Blood Pressure 161/74 08/26/2024 1:13 PM BAT BOY/GIRL Pulse 63 08/26/2024 1:13 PM BAT BOY/GIRL Temperature 36.1 C (96.9 F) 08/06/2021 1:42 PM BAT BOY/GIRL Respiratory Rate 16 07/20/2024 9:06 AM BAT BOY/GIRL Oxygen Saturation 92% 07/20/2024 9:06 AM BAT BOY/GIRL Inhaled Oxygen Concentration - - Weight 81.6 kg (180 lb) 09/14/2024 12:16 PM BAT BOY/GIRL Height 154.9 cm (5' 1 ) 09/14/2024 12:16 PM BAT BOY/GIRL Body Mass Index 34.01 09/14/2024 12:16 PM BAT BOY/GIRL Plan of Treatment Not on file Procedures [...] MD LAB BLOOD ORDERABLES Fin al Result [facility] [address] Department [place] [address] * (ABNORMAL) Differential, auto (12/01/2024 11:11 AM CDT) Neutrophil abs 4.61 1.50 - 6.50 K/cumm Imm gran abs 0.05 0.00 - 0.10 K/cumm [facility] Lymphocyte abs 1.45 0.80 - 3.30 K/cumm [facility] Monocyte abs 0.88(H) 0.20 - 0.80 K/cumm [facility] Eosinophil abs 0.26 0.00 - 0.50 K/cumm [facility] Basophil abs 0.08 0.00 - 0.10 K/cumm [facility] Neutrophil pct 62.9 % [facility] Comment: Interpretive Data Percent cell count reference ranges are not reported, since discordance with absolute values may lead to misinterpretation of CBC data. Current Interpretive Data was last revised on 2017. Imm gran pct 0.7 % [facility] Comment: Interpretive Data Percent cell count reference ranges are not reported, since discordance with absolute values may lead to misinterpretation of CBC data. Current Interpretive Data was last revised on 2017. Lymphocyte pct 19.8 % [facility] Comment: Interpretive Data Percent cell count reference ranges are not reported, since discordance with absolute values may lead to misinterpretation of CBC data. Current Interpretive Data was last revised on 2017. Monocyte pct 12.0 % [facility] Comment: Interpretive Data Percent cell count reference ranges are not reported, since discordance with absolute values may lead to misinterpretation of CBC data. Current Interpretive Data was last revised on 2017. Eosinophil pct 3.5 % [facility] Comment: Interpretive Data Percent cell count reference ranges are not reported, since discordance with absolute values may lead to misinterpretation of CBC data. Current Interpretive Data was last revised on 2017. Basophil pct 1.1 % [facility] Comment: Interpretive Data Percent cell count reference ranges are not reported, since discordance with absolute values may lead to misinterpretation of CBC data. Current Interpretive Data was last revised on 2017. Blood 12/01/2024 11:1 1 AM CDT 12/01/2024 12:21 PM CDT us Filippo Carpenter MD LAB BLOOD ORDERABLES Fin al Result Performing Organization Address [facility]/ZIP Co de Phone Number [facility] [address] Department of [place] [address] * (ABNORMAL) CBC with auto differential (12/01/2024 11:11 AM CDT) WBC 7.33 3.80 - 9.90 K/cumm Hgb 13.0 11.9 - 15.5 g/dL [facility] Hct 40.6 35.6 - 45.5 % [facility] Plt 273 150 - 400 K/cumm [facility] MPV 11.9 9.1 - 12.3 fL [facility] RBC 4.41 3.90 - 5.20 M/cumm [facility] MCV 92.1 81.3 - 96.4 fL [facility] MCH 29.5 27.1 - 33.3 pg [facility] MCHC 32.0(L) 32.3 - 35.7 g/dL [facility] RDW CV 14.8 11.1 - 14.9 % [facility] RDW SD 48.4(H) 35.7 - 48.1 fL [facility] NRBC abs 0.00 0.00 - 0.01 K/cumm [facility] Blood 12/01/2024 11:1 1 AM CDT 12/01/2024 12:21 PM CDT us Filippo Carpenter MD LAB BLOOD ORDERABLES Fin al Result Performing Organization Address City/[facility]/ZIP Co de Phone Number [facility] [address] Department [place] [address] * Creatinine (12/01/2024 11:11 AM CDT) Creatinine 0.74 0.60 - 1.10 mg/dL Blood 12/01/2024 11:1 1 AM CDT 12/01/2024 12:21 PM CDT Filippo Carpenter MD LAB BLOOD ORDERABLES Fin al Result Performing Organization Address City/[facility]/ZIP Co de Phone Number [facility] [address] [facility] [place] [address] * (ABNORMAL) Hepatic function panel (12/01/2024 11:11 AM CDT) Bilirubin, total 0.4 0.1 - 1.2 mg/dL Bilirubin, direct 0.2 0.1 - 0.3 mg/dL [facility] Protein, pl 6.4(L) 6.5 - 8.5 g/dL [facility] Albumin 3.6 3.5 - 5.0 g/dL [facility] Alk phos 53 40 - 130 Units/L [facility] ALT 14 7 - 45 Units/L [facility] AST 17 10 - 45 Units/L [facility] Blood 12/01/2024 11:1 1 AM CDT 12/01/2024 12:21 PM CDT Filippo Carpenter MD LAB BLOOD ORDERABLES Fin al Result [facility] [address] [place] [address] * SCAN - NEUROLOGY (11/29/2024 10:50 AM CDT) Anatomical Region Laterality Modality Other Nicole Brumfield MD Final Result from Last 3 Months Insurance [facility] [employer] PPO [facility] [employer] [employer] PPO Care Teams Rustic Terrazzo Setter Relationship Specialty Start Date End Date Parminder Rojas MD PCP - General 01/19/14 Yannick Guevara MD [phone] [place] [address] Surgeon Colon and Rectal Surgery 02/07/21 Ayde Peña MD [address] [place] [address] Referring Physician Family Medicine 02/07/21
--- OUTSIDE RECORDS SUMMARY | 2024-12-16 08:55 | XMS_ITS | Encounter Summary ---
Author Organization [facility] Health Address [address] [facility] [place] [address] Care Team Providers Care Tradeshow Worker Name Role Phone Filippo Carpenter MD Unavailable [phone] Encounter Details Date Type Department Care Team (Late st Contact Info) Description 01/27/2019 Lab Requisition [facility] [address] [facility], [place] [address] Bettina Espino DO [address] [facility] [address] [place] [address] Social History Tobacco Use Types Packs/Day Years Used Date Smoking Tobacco: Never Alcohol Use Standard Drinks/Week Comments No 0 (1 standard drink = 0.6 oz pur e alcohol) Comments No Sex and Gender Information Value Date Recorded Sex Assigned at Not on file Legal Sex Female 6:12 AM FLIGHT SERVICE SPECIALIST Gender Identity Not on file Sexual Orientation Not on file documented as of this encounter Plan of Treatment Not on file documented as of this encounter Procedures Procedure Name Priority Date/Time Associated Diagnosis Comments DERMATOPATHOLOGY Routine 01/26/2019 12:0 0 AM CDT documented in this encounter Results * DERMATOPATHOLOGY (01/26/2019 12:00 AM CDT) Case Report Dermatopathology Report Case: [id number] Authorizing Provider: Bettina Espino DO Collected: 01/26/2019 [...] The specimen consists of a shave measuring [id number]. Jar 0. 12:24 PM CDT DERMATOPATHOLOGY LABORATORY [...] characteristic determined by the Dermatopathology Laboratory at [facility], directed by Dr. Krys Villagran. These tests need not be, and therefore are not, approved by the [place] Food and Drug Administration. The tests are used for clinical purposes. Billing Codes Specimen Charges Stain Charges 10565 1 12:24 PM CDT DERMATOPATHOLOGY LABORATORY Embedded Images 12:24 PM CDT DERMATOPATHOLOGY LABORATORY Pathology/Cytolog y TISSUE SPECIMEN FROM SKIN / Unknown 01/26/2019 01/27/2019 10:42 AM CDT Bettina Espino DO LAB - PATHOLOGY/CYTOLOGY ORDERABLES Final Result DERMATOPATHOLOGY LABORATORY [facility] - Department of Dermatology [address] [place] [address], 5th Floor Lab [address] [phone] documented in this encounter Visit Diagnoses Not on filedocumented in this encounter Care Teams Tradeshow Worker Relationship Specialty Start Date End Date Filippo Carpenter MD Physician Rheumatology 08/10/11 documented as of this encounter
--- OUTSIDE RECORDS SUMMARY | 2024-12-16 08:55 | XMS_ITS | Clinical Summary ---
Author Organization [facility] Address [address] [facility] [place] [address] Care Team Providers Care Packing And Wrapping Supervisor Name Role Phone Max Carpenter MD Unavailable [phone] Source Comments [facility],non-owned Affiliates and Associated Physician Practices is amultiple site organization consisting of ambulatory clinics and hospital sitesin [place], [place], [place] and [place]. This disclosure is being madepursuant to the Care Everywhere program and may not contain all information available regarding this patient. Last updated 18.[facility] Allergies Active Allergy Reactions Criticality Noted [...] on file Legal Sex Female 6:12 AM MATERIALS MGMT TECH Gender Identity Not on file Sexual Orientation Not on file Last Filed Vital Signs Vital Sign Reading Time Taken Comments Blood Pressure 134/68 07/22/2011 4:17 PM MATERIALS MGMT TECH Pulse 81 07/22/2011 4:17 PM MATERIALS MGMT TECH Temperature 36.9 C (98.5 F) 07/22/2011 4:17 PM MATERIALS MGMT TECH Respiratory Rate 18 07/22/2011 4:17 PM MATERIALS MGMT TECH Oxygen Saturation 96% 07/22/2011 4:17 PM MATERIALS MGMT TECH Inhaled Oxygen Concentration - - Weight 104.3 kg (230 lb) 07/22/2011 6:45 AM MATERIALS MGMT TECH Height 160 cm (5' 3 ) 07/22/2011 6:45 AM MATERIALS MGMT TECH Body Mass Index 40.74 07/22/2011 6:45 AM MATERIALS MGMT TECH Plan of Treatment Health Maintenance Due Date [...] topic Insurance [employer] AETNA MEDICARE [facility] SELF PAY NO INSURANCE Member Subscriber Plan / Payer (Ef fective for All Dates) Name:Laura Valenzuela Member ID:Not on file Relation to Subscriber:Not on file Name:LAURA VALENZUELA Subscriber ID:Not on file Address: [address] [place] [address] Payer ID:Not on file Group ID:Not on file Type:Self Pay Address: [place], [place] Advance Directives * FULL RESUSCITATION (Latest Code Status on File) Date Activated Date Inactivated Comments 07/22/2011 12:27 PM 07/23/2011 6:58 AM Care Teams Packing And Wrapping Supervisor Relationship Specialty Start Date End Date Max Carpenter MD Physician Rheumatology 08/10/11
--- OUTSIDE RECORDS SUMMARY | 2024-12-16 08:55 | XMS_ITS | Clinical Summary ---
Author Organization [facility] Address [address], [facility] [address] [place] [address] Phone Care Team Providers Care Cellar Hand Name Role Phone Parminder Rojas MD Primary Care Provider [phone] Allergies Active Allergy Reactions Criticality Noted Date [...] UNIT Tablet Take by mouth. Activ e [place]-3 Fatty Acids (FISH OIL PO) Take by [...] Maintenance Insurance MEDICARE C AETNA Care Teams Cellar Hand Relationship Specialty Start Date End Date Parminder Rojas MD [address] [address] PCP - General Family Medicine 04/08/18
[2024-12-16 08:57] LABS: INR 2.5; Partial Thromboplastin Time 40.9 Seconds (22.3-36.8); Prothrombin Time 27.5 Seconds (11.1-14.7)
[2024-12-16 09:04] LABS: Troponin I < 0.012 ng/mL (0.000-0.034)
--- NOTE | 2024-12-16 10:53 | ED.CHESTPAIN ---
HPI - Chest Pain General Chief Complaint: Chest Pain Stated Complaint: chest pain Time Seen by Provider: 12/16/24 08:26 Source: patient Mode of arrival: ambulatory Limitations: no limitations History of Present Illness HPI narrative: 74-year-old with a history of atrial fibrillation on Xarelto, hypertension here with a complains of upper abdominal and chest pain which started this morning. Patient denied having any shortness of breath however upon arrival to the ER her pain as much resolved. She denies any fever or chills no previous history of CAD MD complaint: chest pain Onset (ago): hour(s) (4) Timing of current episode: now resolved Onset: during rest Pain location: substernal Pain radiation: none Severity: moderate Quality: aching Relieving factors: nothing Exacerbating factors: nothing Risk Factors Coronary artery disease risk factors: none Thoracic aortic dissection risk factors: none Related Data Home Medications ?Medication ?Instructions ?Recorded ?Confirmed ?Last Taken ?Type leflunomide 20 mg tablet 20 mg PO DAILY 07/04/19 11/10/24 01/13/24 History nystatin 100,000 unit/mL oral 1 ml PO QID PRN Pain 05/08/23 11/10/24 01/13/24 History suspension omega 3-tgs-wfq-fish oil 100 2 cap PO BID 06/12/23 11/10/24 01/13/24 History mg-160 mg-1,000 mg capsule (Fish Oil) furosemide 40 mg tablet 40 mg PO DAILY 10/21/23 11/10/24 01/13/24 History ferrous sulfate 325 mg (65 mg 325 mg PO DAILY 11/02/23 11/10/24 01/13/24 History iron) tablet (iron) Allergies Allergy/AdvReac Type Severity Reaction Status Date / Time ciprofloxacin Allergy Mild Unknown Verified 12/16/24 08:29 codeine Allergy Unknown Unknown Verified 12/16/24 08:29 levofloxacin Allergy Unknown Unknown Verified 12/16/24 08:29 lisinopril Allergy Unknown Unknown Verified 12/16/24 08:29 amoxicillin (From Augmentin) AdvReac Severe Confusion Verified 12/16/24 08:29 clavulanic acid (From AdvReac Severe Confusion Verified 12/16/24 08:29 Augmentin) tramadol AdvReac Mild Confusion Verified 12/16/24 08:29 Review of Systems Review of Systems: All systems reviewed & are unremarkable except as noted in HPI and below Constitutional: Constitutional: Reports no additional constitutional complaints Eyes: Eyes: Reports no additional eye complaints ENT: Reports system reviewed and no additional complaints, except as documented Cardiovascular: Cardiovascular: Reports no additional cardiovascular complaints Respiratory: Respiratory: Reports no additional respiratory complaints Gastrointestinal: Gastrointestinal: Reports no additional gastrointestinal complaints Musculoskeletal: Musculoskeletal: Reports no additional musculoskeletal complaints [facility] Past Medical History Medical History Preop cardiovascular exam Restless leg syndrome 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 Hematochezia Chronic respiratory failure with hypoxia, on home oxygen therapy Type 2 diabetes mellitus Rectal bleeding Transient ischemic attack Chronic hyponatremia COVID Venous insufficiency Iron deficiency anemia Polymyalgia rheumatica Small vessel disease, cerebrovascular Chronic anticoagulation Paroxysmal atrial fibrillation Coronary artery disease Microscopic colitis Cubital tunnel syndrome on right Elevated liver enzymes Chronic diarrhea Exocrine pancreatic insufficiency COVID-19 Cervical arthritis Facial trauma Pneumonia Chronic obstructive pulmonary disease, unspecified Dyslipidemia Essential hypertension Gastro-esophageal reflux disease without esophagitis Multifocal atrial tachycardia Surgical History Surgical History History of heart artery stent History of cardiac catheterization History of bilateral knee replacement History of bilateral carpal tunnel release History of colonoscopy with polypectomy History of coronary artery bypass graft x 2 (12/2013) History of Achilles tendon repair History of spinal surgery Lumbar micro discectomy infusion. History of mitral valve repair History of shoulder surgery History of cataract extraction Left History of hand surgery trigger finger, thumb Family History Family History Mother Cerebrovascular accident Family history of diabetes mellitus in first degree relative Family history of coronary artery disease Acute myocardial infarction Diabetes mellitus Father Carcinoma of colon Family history of lung cancer Family history of malignant neoplasm of esophagus Sibling Liver disease Liver transplant recipient Other Family history of malignant neoplasm of brain Family history of malignant neoplasm of stomach Social History Social History Social History: Surrogate medical decision maker: Filippo Clifford, spouse. Code status: Full code. Smoking status: Never smoker Second hand tobacco smoke exposure: Yes Alcohol intake: current Alcohol use details: Rare alcohol use in moderation. Substance use: never Substance use type: does not use Do You Feel Safe in your Home?: Yes Lack of Transportation: No Lack of Food: Never True Current Housing: I Have Housing Concerned About Future Housing: Decline to Answer Difficulty Paying Gas/Electric Bills: Decline to Answer Difficulty Paying for Meds: Decline to Answer Currently Unemployed: Decline to Answer Education: Decline to Answer Difficulty w/ Childcare or Family Care: Decline to Answer Living arrangements: with family Occupation/Education: retired Additional occupation/education comments: Worked in [employer]. Gender identity (if verbalized by the patient): Female Spiritual care concerns: No Exam Narrative: GENERAL: Well-appearing, well-nourished, and in no acute distress. HEAD: Normocephalic, atraumatic. EYES: PERRLA and EOMI. ENT: . Mucous membranes moist. NECK: Supple. CHEST: Clear to auscultation. No respiratory distress. HEART: Regular rate and rhythm. No murmur heard. Normal peripheral pulses. ABDOMEN: Soft, nontender, nondistended, normal active bowel sounds. EXTREMITIES: Normal range of motion. No edema. SKIN: Warm, dry, no rash. NEURO: No focal deficits. Alert and oriented x3. PSYCH: Normal mood and affect. Course Course Emergency Course: Patient comfortably resting on the bed in no discomfort informed her about the lab work. She is pain-free at this time. I did discuss with Dr. Holly patient could be discharged home and follow-up in office. She does feel comfortable Vital Signs Vital signs: Vital Signs Temperature 36.5 C 12/16/24 08:21 Pulse Rate 92 12/16/24 08:21 Respiratory Rate 26 H 12/16/24 08:21 Blood Pressure 163/99 H 12/16/24 08:21 Pulse Oximetry 93 12/16/24 08:21 Oxygen Delivery Nasal Cannula 12/16/24 08:21 Oxygen Flow Rate 2 12/16/24 08:21 Temperature 36.5 C 12/16/24 08:21 Pulse Rate 98 12/16/24 10:39 Respiratory Rate 18 12/16/24 10:39 Blood Pressure 134/92 H 12/16/24 10:39 Pulse Oximetry 93 12/16/24 10:39 Oxygen Delivery Nasal Cannula 12/16/24 08:42 Oxygen Flow Rate 2 12/16/24 08:42 MDM - Chest Pain Differential Diagnosis Differential diagnosis: Likely stable angina, unstable angina pectoris, atypical chest pain, costochondritis and chest pain Medical Records Data Attestation: I reviewed the patient's medical records. Lab Data Attestation: I reviewed the patient's lab results. 12/16/24 08:37 12/16/24 08:37 Labs: Lab Results 12/16/24 Range/Units 08:37 WBC 7.9 (4.5-10.0) K/mm3 RBC 4.44 (4.2-5.4) M/mm3 Hgb 13.1 (12.0-15.0) g/dL Hct 41.2 (37.0-47.0) % MCV 92.8 (80-100) fl MCH 29.5 (26-34) pg MCHC 31.8 L (32-36) g/dl RDW 15.1 H (11.5-14.5) % Plt Count 264 (150-375) k/mm3 MPV 10.9 H (7.4-10.4) fl Immature Gran % (Auto) 0.3 (0-0.5) % Neut % (Auto) 66.5 (45.5-73.1) % Lymph % (Auto) 17.8 L (18.3-44.2) % Boyd % (Auto) 10.5 H (2.6-8.5) % Eos % (Auto) 3.9 (0-4.4) % Baso % (Auto) 1.0 (0.2-1.2) % Lymph # (Auto) 1.41 (0.9-3.2) K/mm3 Boyd # (Auto) 0.8 H (0.1-0.6) K/mm3 Eos # (Auto) 0.3 (0-0.3) K/mm3 Baso # (Auto) 0.1 (0.0-0.1) K/mm3 Abs Immat Gran (auto) 0.02 (0.00-0.031) K/mm3 Absolute Neuts (auto) 5.3 (1.3-6.7) K/mm3 Absolute Nucleated RBC 0.000 (0.0-0.012) K/mm3 Nucleated RBC % 0.0 (0.0-0.2) % PT 27.5 H (11.1-14.7) Seconds INR 2.5 APTT 40.9 H (22.3-36.8) Seconds Sodium 135 L (137-145) mmol/L Potassium 3.3 L (3.4-5.0) mmol/L Chloride 94 L (98-107) mmol/L Carbon Dioxide 31 H (22-30) mmol/L Anion Gap 10 (4-12) mmol/L BUN 19 H D (7-17) mg/dL Creatinine 0.87 (0.7-1.0) mg/dL Estim Creat Clear Calc 49 ml/min Estimated GFR > 60 (59 - ) Glucose 121 H (65-110) mg/dL Calcium 8.9 (8.4-10.2) mg/dL Total Bilirubin 0.7 (0.2-1.3) mg/dL AST 20 (14-36) U/L ALT 16 (6-35) U/L Alkaline Phosphatase 66 (38-126) U/L Troponin I < 0.012 (0.000-0.034) ng/mL Total Protein 7.0 (6.3-8.2) g/dL Albumin 4.0 (3.5-5.1) g/dL Lipase 78 (23-300) U/L Imaging Data Radiologist's impression: ITS Impressions Chest X-Ray 12/16/24 09:27 IMPRESSION: No focal infiltrate or effusion. ECG Data EKG #1: ECG completion date: 12/16/24 ECG completion time: 08:27 EKG Interpretation: normal rate (96), atrial fibrillation, no ST changes, normal QRS and normal QT EKG #2: ECG completion date: 12/16/24 ECG completion time: 11:04 EKG Interpretation: normal rate (99), sinus rhythm, no ST changes, normal QRS and no acute changes Discharge Plan Discharge Clinical Impression: Chest pain Qualifiers: Chest pain type: unspecified Qualified Code(s): R07.9 - Chest pain, unspecified Patient Disposition: Home Condition: Stable Instructions: Antibiotic Form, Chest Pain (ED) Patient Language: Haitian Prescriptions: No Action leflunomide 20 mg tablet 20 mg PO DAILY Fish Oil 100-160-1,000 mg capsule 2 cap PO BID Rx Instructions: two pills morning, two pills hs nitroglycerin 0.4 mg tablet, sublingual 0.4 mg SUBLINGUAL Q5M PRN (Reason: Chest Pain) Qty: 30 0RF diphenoxylate-atropine [Lomotil] 2.5-0.025 mg tablet 1 tablet PO TID PRN (Reason: Diarrhea) Qty: 60 0RF Repatha SureClick 140 mg/mL pen injector 140 mg subcut .every 2 weeks Qty: 2 11RF nystatin 100,000 unit/mL suspension 1 ml PO QID PRN (Reason: Pain) Rx Instructions: swish and swallow to each side of mouth furosemide 40 mg tablet 40 mg PO DAILY ferrous sulfate [iron] 325 mg (65 mg iron) Tablet 325 mg PO DAILY metformin 500 mg tablet extended release 24 hr 1,000 mg PO DAILY Qty: 180 3RF pantoprazole 40 mg tablet,delayed release (DR/EC) 40 mg PO QAM Qty: 90 3RF pravastatin 10 mg tablet See Rx Instructions .ROUTE .COMPLEX Qty: 90 2RF Dose Instruction: TAKE 1 TABLET BY MOUTH EVERY DAY Rx Instructions: TAKE 1 TABLET BY MOUTH EVERY DAY arformoterol 15 mcg/2 mL solution for nebulization See Rx Instructions .ROUTE .COMPLEX Qty: 30 11RF Dose Instruction: USE 1 VIAL IN NEBULIZER DAILY Rx Instructions: USE 1 VIAL IN NEBULIZER DAILY metoprolol tartrate 25 mg tablet 25 mg PO BID Qty: 60 5RF Xarelto 20 mg tablet See Rx Instructions .ROUTE .COMPLEX Qty: 30 5RF Dose Instruction: TAKE 1 TABLET BY MOUTH EVERY DAY MUST ADMINISTER WITH EVENING MEAL Rx Instructions: TAKE 1 TABLET BY MOUTH EVERY DAY MUST ADMINISTER WITH EVENING MEAL spironolactone 25 mg tablet See Rx Instructions .ROUTE .COMPLEX Qty: 30 5RF Dose Instruction: TAKE 1 TABLET BY MOUTH EVERY DAY Rx Instructions: TAKE 1 TABLET BY MOUTH EVERY DAY pramipexole 0.5 mg tablet 0.5 mg PO HS Qty: 90 1RF sotalol 80 mg tablet See Rx Instructions .ROUTE .COMPLEX Qty: 180 2RF Dose Instruction: TAKE 1 TABLET BY MOUTH TWICE A DAY Rx Instructions: TAKE 1 TABLET BY MOUTH TWICE A DAY tirzepatide 5 mg/0.5 mL pen injector 5 mg subcut WEEKLY Qty: 2 0RF Follow-up/Referrals: Parminder Rojas MD [Primary Care Provider] - Time of Disposition: 12:16
--- NOTE | 2024-12-16 10:59 | ECG_ITS ---
Test Date: 2024-12-16 11:04:40 Measurements Intervals [place] Rate: 99 P: 0 OR: 0 QRS: -29 QRSD: 106 T: 53 QT: 382 QTc: 491 Interpretive Statements SINUS RHYTHM WITH FREQUENT ATRIAL PREMATURE COMPLEXES BORDERLINE AV CONDUCTION DELAY INCOMPLETE RIGHT BUNDLE BRANCH BLOCK CONSIDER INFERIOR INFARCT, AGE INDETERMINATE BASELINE ARTIFACT- I, II, III, AVR, AVL, AVF, V1, V4 ABNORMAL ECG Compared to ECG 12/16/2024 08:27:10 NO SIGNIFICANT CHANGE Electronically Signed On 12-16-2024 11:45:11 CDT by Miky Sorensen D.O.
[2024-12-16 11:47] LABS: Troponin I < 0.012 ng/mL (0.000-0.034)
== END 2024-12-16 12:34 | disposition home or self-care (01) ==
PROVIDERS: Emergency Provider Family Medicine; PCP Family Medicine
DX: R07.9 Chest pain, unspecified (principal); I48.0 Paroxysmal atrial fibrillation; I10 Essential (primary) hypertension; I87.2 Venous insufficiency (chronic) (peripheral); I25.10 Atherosclerotic heart disease of native coronary artery without angina pectoris; I67.89 Other cerebrovascular disease; E11.21 Type 2 diabetes mellitus with diabetic nephropathy; E87.1 Hypo-osmolality and hyponatremia; E78.5 Hyperlipidemia, unspecified; J96.11 Chronic respiratory failure with hypoxia; J44.9 Chronic obstructive pulmonary disease, unspecified; Z99.81 Dependence on supplemental oxygen; D50.9 Iron deficiency anemia, unspecified; K21.9 Gastro-esophageal reflux disease without esophagitis; K86.81 Exocrine pancreatic insufficiency; M35.3 Polymyalgia rheumatica; G25.81 Restless legs syndrome; Z86.73 Personal history of transient ischemic attack (TIA), and cerebral infarction without residual deficits; Z86.16 Personal history of COVID-19; Z87.01 Personal history of pneumonia (recurrent); Z95.5 Presence of coronary angioplasty implant and graft; Z96.653 Presence of artificial knee joint, bilateral; Z95.1 Presence of aortocoronary bypass graft; Z86.0100 Personal history of colon polyps, unspecified; Z98.42 Cataract extraction status, left eye; I44.0 Atrioventricular block, first degree; I45.10 Unspecified right bundle-branch block; I49.1 Atrial premature depolarization; R00.8 Other abnormalities of heart beat; R94.31 Abnormal electrocardiogram [ECG] [EKG]; Z79.01 Long term (current) use of anticoagulants; Z79.85 Long-term (current) use of injectable non-insulin antidiabetic drugs; Z79.899 Other long term (current) drug therapy; Z79.84 Long term (current) use of oral hypoglycemic drugs
CPT/HCPCS: 36415; 71046; 80053; 83690; 84484; 85025; 85610; 85730; 93005; 99284; A9270

== ENCOUNTER 2024-12-21 14:14 | Inpatient (IN) | payer OTHER, SELFPAY ==
[2024-12-21] VITALS (16 sets, daily range): BP systolic 136–180; BP diastolic 71–98; PULSE 86–133; RESP 18–33; TEMP 36.1–36.8; O2SAT 86–98; BMI 33.9
--- NOTE | ~2024-12-21 | XR_ITS ---
XR chest 2V Ordering provider: Bowen Caraballo MD History: 74 years Female with . sob, low 02 sat HX COPD . Comparison: December 16, 2024 FINDINGS: MEDIASTINUM: The cardiac silhouette is not enlarged. Postoperative changes in the mediastinum. LUNGS: No effusions or pneumothorax. Prominent bronchovascular markings bilaterally with interstitial thickening which may indicate pneumonitis with underlying fibrotic changes. Pulmonary edema is less likely. OTHER: No free air under the diaphragm. Degenerative changes of the spine. Right shoulder arthroplasty. IMPRESSION: Bilateral interstitial thickening which may indicate pneumonitis. Underlying fibrotic changes noted. Reviewed, dictated and finalized at location A. IMPRESSION: Bilateral interstitial thickening which may indicate pneumonitis. Underlying fi brotic changes noted.
--- NOTE | ~2024-12-21 | US_ITS ---
EXAMINATION:US venous doppler LE BI INDICATION:Leg swelling TECHNIQUE: Multiple grayscale, color flow and Doppler images of the right and left lower extremity de ep venous systems were obtained and reviewed. COMPARISON:No prior studies for comparison. FINDINGS: The common femoral, superficial femoral and popliteal veins demonstrate normal respiratory variation, augmentation and compressibility. Color flow is also seen within the posterior tibial, pe roneal, greater saphenous and profunda veins. IMPRESSION: 1: No lower extremity deep venous thrombosis. Reviewed, dictated and finalized at location A.
--- NOTE | ~2024-12-21 | CT_ITS ---
EXAMINATION: CTA chest PE protocol DATE: 12/21/2024 17:51 CDT INDICATION: Shortness of breath and hypoxia TECHNIQUE: Computed tomographic angiography (CTA) of the chest was performed with 100 mL Omnipaque-35 0 intravenous contrast. The dose-length product was 530.08 mGy-cm. Maximum intensity projection 3D-re constructions of the aorta and other arteries were constructed by the technologist on a separate work station. COMPARISON: 11/20/2022 and 08/26/2022 FINDINGS/OBSERVATIONS: PULMONARY ARTERIES: No filling defect is identified within the main or proximal pulmonary artery. The main pulmonary artery is not enlarged. THORACIC AORTA: No aneurysmal dilatation or dissection is present. The great vessels are intact LUNGS: Patchy groundglass opacification detected bilaterally, with a bilateral upper lobe distributio n. MEDIASTINUM: No morphologically suspicious or pathologically enlarged lymph nodes are identified with in the mediastinum or bilateral axilla. BONES OF THE CHEST: No acute fracture. No significant degenerative disease. No lytic or blastic lesions. Sternal wires are present. HEART: The heart is of normal size, without pericardial effusion. IMPRESSION: No pulmonary embolus. No thoracic aortic dissection. Patchy groundglass opacification with a bilateral upper lobe distribution. Reviewed, dictated and finalized at location A.
--- NOTE | 2024-12-21 14:27 | ECG_ITS ---
Test Date: 2024-12-21 14:33:32 Measurements Intervals [place] Rate: 96 P: 0 [place]: 0 QRS: -30 QRSD: 94 T: 47 QT: 366 QTc: 463 Interpretive Statements SINUS RHYTHM WITH FREQUENT ATRIAL PREMATURE COMPLEXES LOW QRS VOLTAGE IN PRECORDIAL LEADS INCOMPLETE RIGHT BUNDLE BRANCH BLOCK CONSIDER INFERIOR INFARCT, AGE INDETERMINATE BASELINE ARTIFACT- I, AVR, AVL, AVF, V1-V3 ABNORMAL ECG Compared to ECG 12/16/2024 11:04:40 NO SIGNIFICANT CHANGE Electronically Signed On 12-21-2024 14:44:36 CDT by Miky Sorensen D.O.
[2024-12-21 14:47] LABS: Basophils Absolute Auto 0.1 K/mm3 (0.0-0.1); Eosinophils Absolute Auto 0.3 K/mm3 (0-0.3); Eosinophils Percent Auto 3.5 % (0-4.4); Hemoglobin 12.6 g/dL (12.0-15.0); Immature Granulocyte Absolute 0.03 K/mm3 (0.00-0.031); Immature Granulocyte Percent A 0.4 % (0-0.5); Lymphocytes Absolute Auto 0.93 K/mm3 (0.9-3.2); Lymphocytes Percent Auto 11.7 % (18.3-44.2); Mean Corpuscular HGB Conc 32.3 g/dl (32-36); Mean Corpuscular Hemoglobin 29.5 pg (26-34); Mean Corpuscular Volume 91.3 fl (80-100); Mean Platelet Volume 11.3 fl (7.4-10.4); Neutrophils Absolute Auto 5.7 K/mm3 (1.3-6.7); Neutrophils Percent Auto 71.4 % (45.5-73.1); Platelet Count Result 232 k/mm3 (150-375); Red Blood Count 4.27 M/mm3 (4.2-5.4); Red Cell Distribution Width 15.3 % (11.5-14.5); White Blood Count 7.9 K/mm3 (4.5-10.0)
[2024-12-21 14:57] LABS: Alanine Aminotransferase 21 U/L (6-35); Albumin Level 3.6 g/dL (3.5-5.1); Alkaline Phosphatase 89 U/L (38-126); Anion Gap 6 mmol/L (4-12); Aspartate Amino Transferase 30 U/L (14-36); Bilirubin,Total 0.6 mg/dL (0.2-1.3); Blood Urea Nitrogen 13 mg/dL (7-17); Calcium 8.4 mg/dL (8.4-10.2); Carbon Dioxide 31 mmol/L (22-30); Chloride 99 mmol/L (98-107); Estimated CRCL calculation 68 ml/min; Estimated Glomerular Filt Rate > 60; Glucose 134 mg/dL (65-110); Sodium 136 mmol/L (137-145)
[2024-12-21 15:23] LABS: Influenza A QL RT-PCR Negative (Negative); Influenza B QL RT-PCR Negative (Negative); RSV RNA, RT-PCR Negative (Negative); SARS-CoV-2 RNA PCR Negative (Negative)
--- OUTSIDE RECORDS SUMMARY | 2024-12-21 16:14 | XMS_ITS | Encounter Summary ---
Author Organization [facility] Health Address [address] [address] Care Team Providers Care Aromatherapist Name Role Phone Filippo Carpenter MD Unavailable [phone] Encounter Details Date Type Department Care Team (Late st Contact Info) Description 07/19/2020 Lab Requisition [facility] [address] [place] [address] Zora Gilmore MD [address] [facility] [address] [place] [address] Social History Tobacco Use Types Packs/Day Years Used Date Smoking Tobacco: Never Alcohol Use Standard Drinks/Week Comments No 0 (1 standard drink = 0.6 oz pur e alcohol) Comments No Sex and Gender Information Value Date Recorded Sex Assigned at Not on file Legal Sex Female 6:12 AM [employer] SALESPERSON Gender Identity Not on file Sexual Orientation Not on file documented as of this encounter Plan of Treatment Not on file documented as of this encounter Procedures Procedure Name Priority Date/Time Associated Diagnosis Comments DERMATOPATHOLOGY Routine 07/18/2020 12:0 0 AM [employer] SALESPERSON documented in this encounter Results * DERMATOPATHOLOGY (07/18/2020 12:00 AM FURS SALESPERSON) Case Report Dermatopathology Report Case: [id number] Authorizing Provider: Zora Gilmore MD Collected: 07/18/2020 12:00 AM Ordering Location: [facility] Lab Received: 07/19/2020 05:55 AM Pathologist: Miranda Brennan MD Specimen: Skin, nose tip 0 7:17 PM [facility] DERMAT[facility]ATHOLOGY [facility]ORAT[facility] Final Diagnosis Specimen A. SKIN, nose tip: ACTINIC KERATOSIS (L57.0) (see microscopic description) 0 7:17 PM [facility] DERMATOPATHOLOGY LABORATORY Clinical History R/O BCC,AK 0 7:17 PM [facility] SALESPERSON DERMATOPATHOLOGY LABORATORY Gross Description Specimen A: Received is one formalin filled container labeled with the patient's name and designated nose tip. The specimen consists of a shave biopsy measuring 3x3x1 mm. Jar 0. 0 7:17 PM [facility] SALESP[facility] DERMATOPATHOLOGY LABORATORY Microscopic Description Specimen A. SKIN, nose tip: There is focal parakeratosis. The lower half of the epidermis shows disorderly maturation of keratinocytes with nuclear pleomorphism. Additional deeper sections were obtained and reviewed. 0 7:17 PM [facility] DERMATOPATHOLOGY LABORATORY Disclaimer An external and internal positive and negative controls are appropriate for the histochemical, immunohistochemical and immunofluorescence stain(s) in this case (if any), except where stated explicitly. The performance characteristics of the stain(s) cited in this report were developed and its performance characteristic determined by the Dermatopathology Laboratory at [facility], directed by Dr. Krys Villagran. These tests need not be, and therefore are not, approved by the [place] Food and Drug Administration. The tests are used for clinical purposes. Billing Codes Specimen Charges Stain Charges 14161 1 0 7:17 PM [facility] SALESPERSON DERMATOPATHOLOGY LABORATORY Embedded Images 0 7:17 PM [facility] SALESPERSON DERMATOPATHOLOGY LABORATORY Pathology/Cytolog y TISSUE SPECIMEN FROM SKIN / Unknown 07/18/2020 07/19/2020 5:55 AM FURS SALESPERSON us Zora Gilmore MD LAB - PATHOLOGY/CYTOLOGY ORD ERABLES Final Result DERMATOPATHOLOGY LABORATORY [facility] - Department of Dermatology [address] [phone] documented in this encounter Visit Diagnoses Not on filedocumented in this encounter Care Teams Aromatherapist Relationship Specialty Start Date End Date Filippo Carpenter MD Physician Rheumatology 08/10/11 documented as of this encounter
--- OUTSIDE RECORDS SUMMARY | 2024-12-21 16:14 | XMS_ITS | Clinical Summary ---
Author Organization [facility] Address [address] [place] [address] Care Team Providers Care Prototype Machinist Name Role Phone Parminder Rojas MD Primary Care Provider [phone] Allergies Active Allergy Reactions Criticality Noted Date [...] - 1-dose 75+ series) 02/12/[address] [place] [address] [employer] PPO MCR Care Teams Prototype Machinist Relationship Specialty Start Date End Date Parminder Rojas MD [address] [place] [phone] PCP - General Family Practice 02/04/22
--- OUTSIDE RECORDS SUMMARY | 2024-12-21 16:14 | XMS_ITS | Referral Summary ---
Author Organization [facility] Address [address] [place] [address] Care Team Providers Care Aquatic Facility Manager Name Role Phone Parminder Rojas MD Primary Care Provider [phone] Yannick Guevara MD Unavailable [phone] Ayde Peña MD Unavailable [phone] Encounters Date Type Department Care Team Description 12/01/2024 11:10 AM CDT Lab [facility] [address] [place] [address] 11/29/2024 Orders Only Neurology Nicole Brumfield MD [...] on file Legal Sex Female 2:00 AM ELECTRONIC WARFARE TECHNICAL Gender Identity Not on file Sexual Orientation Not on file Last Filed Vital Signs Vital Sign Reading Time Taken Comments Blood Pressure 161/74 08/26/2024 1:13 PM ELECTRONIC WARFARE TECHNICAL Pulse 63 08/26/2024 1:13 PM ELECTRONIC WARFARE TECHNICAL Temperature 36.1 C (96.9 F) 08/06/2021 1:42 PM ELECTRONIC WARFARE TECHNICAL Respiratory Rate 16 07/20/2024 9:06 AM ELECTRONIC WARFARE TECHNICAL Oxygen Saturation 92% 07/20/2024 9:06 AM ELECTRONIC WARFARE TECHNICAL Inhaled Oxygen Concentration - - Weight 81.6 kg (180 lb) 09/14/2024 12:16 PM ELECTRONIC WARFARE TECHNICAL Height 154.9 cm (5' 1 ) 09/14/2024 12:16 PM ELECTRONIC WARFARE TECHNICAL Body Mass Index 34.01 09/14/2024 12:16 PM ELECTRONIC WARFARE TECHNICAL Plan of Treatment Not on file Procedures [...] MD LAB BLOOD ORDERABLES Fin al Result [facility] [address] Department [place] [address] * (ABNORMAL) Differential, auto (12/01/2024 11:11 AM CDT) Neutrophil abs 4.61 1.50 - 6.50 K/cumm Imm gran abs 0.05 0.00 - 0.10 K/cumm [facility] Lymphocyte abs 1.45 0.80 - 3.30 K/cumm [facility] Monocyte abs 0.88(H) 0.20 - 0.80 K/cumm [facility] Eosinophil abs 0.26 0.00 - 0.50 K/cumm [facility] Basophil abs 0.08 0.00 - 0.10 K/cumm [facility] Neutrophil pct 62.9 % [facility] Comment: Interpretive Data Percent cell count reference ranges are not reported, since discordance with absolute values may lead to misinterpretation of CBC data. Current Interpretive Data was last revised on 2017. Imm gran pct 0.7 % [facility] Comment: Interpretive Data Percent cell count reference ranges are not reported, since discordance with absolute values may lead to misinterpretation of CBC data. Current Interpretive Data was last revised on 2017. Lymphocyte pct 19.8 % [facility] Comment: Interpretive Data Percent cell count reference ranges are not reported, since discordance with absolute values may lead to misinterpretation of CBC data. Current Interpretive Data was last revised on 2017. Monocyte pct 12.0 % [facility] Comment: Interpretive Data Percent cell count reference ranges are not reported, since discordance with absolute values may lead to misinterpretation of CBC data. Current Interpretive Data was last revised on 2017. Eosinophil pct 3.5 % [facility] Comment: Interpretive Data Percent cell count reference ranges are not reported, since discordance with absolute values may lead to misinterpretation of CBC data. Current Interpretive Data was last revised on 2017. Basophil pct 1.1 % [facility] Comment: Interpretive Data Percent cell count reference ranges are not reported, since discordance with absolute values may lead to misinterpretation of CBC data. Current Interpretive Data was last revised on 2017. Blood 12/01/2024 11:1 1 AM CDT 12/01/2024 12:21 PM CDT us Filippo Carpenter MD LAB BLOOD ORDERABLES Fin al Result Performing Organization Address [facility]/ZIP Co de Phone Number [facility] [address] Department [place] [address] * (ABNORMAL) CBC with auto differential (12/01/2024 11:11 AM CDT) WBC 7.33 3.80 - 9.90 K/cumm Hgb 13.0 11.9 - 15.5 g/dL [facility] Hct 40.6 35.6 - 45.5 % [facility] Plt 273 150 - 400 K/cumm [facility] MPV 11.9 9.1 - 12.3 fL [facility] RBC 4.41 3.90 - 5.20 M/cumm [facility] MCV 92.1 81.3 - 96.4 fL [facility] MCH 29.5 27.1 - 33.3 pg [facility] MCHC 32.0(L) 32.3 - 35.7 g/dL [facility] RDW CV 14.8 11.1 - 14.9 % [facility] RDW SD 48.4(H) 35.7 - 48.1 fL [facility] NRBC abs 0.00 0.00 - 0.01 K/cumm [facility] Blood 12/01/2024 11:1 1 AM CDT 12/01/2024 12:21 PM CDT us Filippo Carpenter MD LAB BLOOD ORDERABLES Fin al Result Performing Organization Address City/[facility]/ZIP Co de Phone Number [facility] [address] [place] [address] * Creatinine (12/01/2024 11:11 AM CDT) Creatinine 0.74 0.60 - 1.10 mg/dL Blood 12/01/2024 11:1 1 AM CDT 12/01/2024 12:21 PM CDT Filippo Carpenter MD LAB BLOOD ORDERABLES Fin al Result Performing Organization Address City/[facility]/ZIP Co de Phone Number [facility] [address] [facility] [place] [address] * (ABNORMAL) Hepatic function panel (12/01/2024 11:11 AM CDT) Bilirubin, total 0.4 0.1 - 1.2 mg/dL Bilirubin, direct 0.2 0.1 - 0.3 mg/dL [facility] Protein, pl 6.4(L) 6.5 - 8.5 g/dL [facility] Albumin 3.6 3.5 - 5.0 g/dL [facility] Alk phos 53 40 - 130 Units/L [facility] ALT 14 7 - 45 Units/L [facility] AST 17 10 - 45 Units/L [facility] Blood 12/01/2024 11:1 1 AM CDT 12/01/2024 12:21 PM CDT Filippo Carpenter MD LAB BLOOD ORDERABLES Fin al Result [facility] [address] [place] [address] * SCAN - NEUROLOGY (11/29/2024 10:50 AM CDT) Anatomical Region Laterality Modality Other Nicole Brumfield MD Final Result from Last [address] [facility] [employer] CHOICE PPO [facility] [employer] PPO Care Teams Aquatic Facility Manager Relationship Specialty Start Date End Date Parminder Rojas MD PCP - General 01/19/14 Yannick Guevara MD [phone] [place] [address] Surgeon Colon and Rectal Surgery 02/07/21 Ayde Peña MD [address] [place] [place] [address] Referring Physician Family Medicine 02/07/21
--- OUTSIDE RECORDS SUMMARY | 2024-12-21 16:14 | XMS_ITS | Clinical Summary ---
Author Organization [facility] Address [address] [place] [address] Care Team Providers Care Sketch Maker Name Role Phone Max Carpenter MD Unavailable [phone] Source Comments [facility],non-owned Affiliates and Associated Physician Practices is amultiple site organization consisting of ambulatory clinics and hospital sitesin [place], [place] and [place]. This disclosure is being madepursuant to the Care Everywhere program and may not contain all information available regarding this patient. Last updated 18.[facility] Allergies Active Allergy Reactions Criticality Noted [...] on file Legal Sex Female 6:12 AM VIDEO TAPE EDITOR Gender Identity Not on file Sexual Orientation Not on file Last Filed Vital Signs Vital Sign Reading Time Taken Comments Blood Pressure 134/68 07/22/2011 4:17 PM VIDEO TAPE EDITOR Pulse 81 07/22/2011 4:17 PM VIDEO TAPE EDITOR Temperature 36.9 C (98.5 F) 07/22/2011 4:17 PM VIDEO TAPE EDITOR Respiratory Rate 18 07/22/2011 4:17 PM VIDEO TAPE EDITOR Oxygen Saturation 96% 07/22/2011 4:17 PM VIDEO TAPE EDITOR Inhaled Oxygen Concentration - - Weight 104.3 kg (230 lb) 07/22/2011 6:45 AM VIDEO TAPE EDITOR Height 160 cm (5' 3 ) 07/22/2011 6:45 AM VIDEO TAPE EDITOR Body Mass Index 40.74 07/22/2011 6:45 AM VIDEO TAPE EDITOR Plan of Treatment Health Maintenance Due Date [...] this topic Insurance [employer] AETNA MEDICARE [facility] SELF PAY NO INSURANCE Member Subscriber Plan / Payer (Ef fective for All Dates) Name:Laura Valenzuela Member ID:Not on file Relation to Subscriber:Not on file Name:LAURA VALENZUELA Subscriber ID:Not on file Address: [address] [place] [address] Payer ID:Not on file Group ID:Not on file Type:Self Pay Address: [place], [place] Advance Directives * FULL RESUSCITATION (Latest Code Status on File) Date Activated Date Inactivated Comments 07/22/2011 12:27 PM 07/23/2011 6:58 AM Care Teams Sketch Maker Relationship Specialty Start Date End Date Max Carpenter MD Physician Rheumatology 08/10/11
--- OUTSIDE RECORDS SUMMARY | 2024-12-21 16:14 | XMS_ITS | Clinical Summary ---
Author Organization [facility] Address [address] [facility] [address] [place] [address] Phone Care Team Providers Care Machine Setter And Repairer Name Role Phone Parminder Rojas MD Primary Care Provider [phone] Allergies Active Allergy Reactions Criticality Noted Date [...] UNIT Tablet Take by mouth. Activ e F[employer] Farm-3 Fatty Acids (FISH OIL PO) Take by [...] Maintenance Insurance MEDICARE C AETNA Care Teams Machine Setter And Repairer Relationship Specialty Start Date End Date Parminder Rojas MD [address] [place] [address] PCP - General Family Medicine 04/08/18
--- OUTSIDE RECORDS SUMMARY | 2024-12-21 16:14 | XMS_ITS | Encounter Summary ---
Author Organization [facility] Address [address] [facility] [place] [address] Care Team Providers Care Jewel Inspector Name Role Phone Filippo Carpenter MD Unavailable [phone] Encounter Details Date Type Department Care Team (Late st Contact Info) Description 01/27/2019 Lab Requisition [facility] [address] [facility] [place] [address] Bettina Espino DO [address] [facility] [address] [place] [address] Social History Tobacco Use Types Packs/Day Years Used Date Smoking Tobacco: Never Alcohol Use Standard Drinks/Week Comments No 0 (1 standard drink = 0.6 oz pur e alcohol) Comments No Sex and Gender Information Value Date Recorded Sex Assigned at Not on file Legal Sex Female 6:12 AM MACHINE BASTER Gender Identity Not on file Sexual Orientation Not on file documented as of this encounter Plan of Treatment Not on file documented as of this encounter Procedures Procedure Name Priority Date/Time Associated Diagnosis Comments DERMATOPATHOLOGY Routine 01/26/2019 12:0 0 AM CDT documented in this encounter Results * DERMATOPATHOLOGY (01/26/2019 12:00 AM CDT) Case Report Dermatopathology Report Case: [id number] Authorizing Provider: Bettina Espino DO Collected: 01/26/2019 [...] The specimen consists of a shave measuring [id number]. Jar 0. 12:24 PM CDT DERMATOPATHOLOGY LABORATORY [...] characteristic determined by the Dermatopathology Laboratory at [facility], directed by Dr. Krys Villagran. These tests need not be, and therefore are not, approved by the [place] Food and Drug Administration. The tests are used for clinical purposes. Billing Codes Specimen Charges Stain Charges 48989 1 12:24 PM CDT DERMATOPATHOLOGY LABORATORY Embedded Images 12:24 PM CDT DERMATOPATHOLOGY LABORATORY Pathology/Cytolog y TISSUE SPECIMEN FROM SKIN / Unknown 01/26/2019 01/27/2019 10:42 AM CDT Bettina Espino DO LAB - PATHOLOGY/CYTOLOGY ORDERABLES Final Result DERMATOPATHOLOGY LABORATORY [facility] - Department of Dermatology [address] [place] [address], 5th Floor Lab [address] [phone] documented in this encounter Visit Diagnoses Not on filedocumented in this encounter Care Teams Jewel Inspector Relationship Specialty Start Date End Date Filippo Carpenter MD Physician Rheumatology 08/10/11 documented as of this encounter
--- OUTSIDE RECORDS SUMMARY | 2024-12-21 16:15 | XMS_ITS | Clinical Summary ---
Author Organization [facility] Address [address] [place] [address] Care Team Providers Care Live Truck Operator Name Role Phone Parminder Rojas MD Primary Care Provider [phone] Yannick Guevara MD Unavailable Ayde Peña MD Unavailable [phone] Allergies Active Allergy Reactions Criticality Noted [...] Team Description 12/01/2024 11:10 AM CDT Lab [address] [phone] 11/29/2024 Orders Only Neurology Nicole Brumfield MD [...] on file Legal Sex Female 2:00 AM HVAC R TECH Gender Identity Not on file Sexual Orientation Not on file Obstetrics History Last Filed Vital Signs Vital Sign Reading Time Taken Comments Blood Pressure 161/74 08/26/2024 1:13 PM HVAC R TECH Pulse 63 08/26/2024 1:13 PM HVAC R TECH Temperature 36.1 C (96.9 F) 08/06/2021 1:42 PM HVAC R TECH Respiratory Rate 16 07/20/2024 9:06 AM HVAC R TECH Oxygen Saturation 92% 07/20/2024 9:06 AM HVAC R TECH Inhaled Oxygen Concentration - - Weight 81.6 kg (180 lb) 09/14/2024 12:16 PM HVAC R TECH Height 154.9 cm (5' 1 ) 09/14/2024 12:16 PM HVAC R TECH Body Mass Index 34.01 09/14/2024 12:16 PM HVAC R TECH Plan of Treatment Health Maintenance Due [...] LAB BLOOD ORDERABLES Fin al Result [facility] [address] [place] [address] [phone] * (ABNORMAL) Differential, auto (12/01/2024 11:11 AM CDT) Neutrophil abs 4.61 1.50 - 6.50 K/cumm Imm gran abs 0.05 0.00 - 0.10 K/cumm [facility] Lymphocyte abs 1.45 0.80 - 3.30 K/cumm [facility] Monocyte abs 0.88(H) 0.20 - 0.80 K/cumm [facility] Eosinophil abs 0.26 0.00 - 0.50 K/cumm [facility] Basophil abs 0.08 0.00 - 0.10 K/cumm [facility] Neutrophil pct 62.9 % [facility] Comment: Interpretive Data Percent cell count reference ranges are not reported, since discordance with absolute values may lead to misinterpretation of CBC data. Current Interpretive Data was last revised on 2017. Imm gran pct 0.7 % [facility] Comment: Interpretive Data Percent cell count reference ranges are not reported, since discordance with absolute values may lead to misinterpretation of CBC data. Current Interpretive Data was last revised on 2017. Lymphocyte pct 19.8 % [facility] Comment: Interpretive Data Percent cell count reference ranges are not reported, since discordance with absolute values may lead to misinterpretation of CBC data. Current Interpretive Data was last revised on 2017. Monocyte pct 12.0 % [facility] Comment: Interpretive Data Percent cell count reference ranges are not reported, since discordance with absolute values may lead to misinterpretation of CBC data. Current Interpretive Data was last revised on 2017. Eosinophil pct 3.5 % [facility] Comment: Interpretive Data Percent cell count reference ranges are not reported, since discordance with absolute values may lead to misinterpretation of CBC data. Current Interpretive Data was last revised on 2017. Basophil pct 1.1 % [facility] Comment: Interpretive Data Percent cell count reference ranges are not reported, since discordance with absolute values may lead to misinterpretation of CBC data. Current Interpretive Data was last revised on 2017. Blood 12/01/2024 11:1 1 AM CDT 12/01/2024 12:21 PM CDT us Filippo Carpenter MD LAB BLOOD ORDERABLES Fin al Result Performing Organization Address [facility] Co de Phone Number [facility] [address] [employer] [place] [address] * (ABNORMAL) CBC with auto differential (12/01/2024 11:11 AM CDT) WBC 7.33 3.80 - 9.90 K/cumm Hgb 13.0 11.9 - 15.5 g/dL [facility] Hct 40.6 35.6 - 45.5 % [facility] Plt 273 150 - 400 K/cumm [facility] MPV 11.9 9.1 - 12.3 fL [facility] RBC 4.41 3.90 - 5.20 M/cumm [facility] MCV 92.1 81.3 - 96.4 fL [facility] MCH 29.5 27.1 - 33.3 pg [facility] MCHC 32.0(L) 32.3 - 35.7 g/dL [facility] RDW CV 14.8 11.1 - 14.9 % [facility] RDW SD 48.4(H) 35.7 - 48.1 fL [facility] NRBC abs 0.00 0.00 - 0.01 K/cumm [facility] Blood 12/01/2024 11:1 1 AM CDT 12/01/2024 12:21 PM CDT us Filippo Carpenter MD LAB BLOOD ORDERABLES Fin al Result [facility] [address] [place] [address] * Creatinine (12/01/2024 11:11 AM CDT) Creatinine 0.74 0.60 - 1.10 mg/dL Blood 12/01/2024 11:1 1 AM CDT 12/01/2024 12:21 PM CDT Filippo Carpenter MD LAB BLOOD ORDERABLES Fin al Result Performing Organization Address [facility] de Phone Number [facility] [address] [facility] [place] [address] * (ABNORMAL) Hepatic function panel (12/01/2024 11:11 AM CDT) [facility] Bilirubin, total 0.4 0.1 - 1.2 mg/dL Bilirubin, direct 0.2 0.1 - 0.3 mg/dL [facility] Protein, pl 6.4(L) 6.5 - 8.5 g/dL [facility] Albumin 3.6 3.5 - 5.0 g/dL [facility] Alk phos 53 40 - 130 Units/L [facility] ALT 14 7 - 45 Units/L [facility] AST 17 10 - 45 Units/L [facility] Blood 12/01/2024 11:1 1 AM CDT 12/01/2024 12:21 PM CDT Filippo Carpenter MD LAB BLOOD ORDERABLES Fin al Result Performing Organization Address [facility] de Phone Number [facility] [address] [place] [address] * SCAN - NEUROLOGY (11/29/2024 10:50 AM CDT) Anatomical Region Laterality Modality Other us Nicole Brumfield MD Final Result from Last 3 Months Insurance [employer] PPO [employer] PPO Care Teams Live Truck Operator Relationship Specialty Start Date End Date Parminder Rojas MD PCP - General 01/19/14 Yannick Guevara MD [phone] [place] [address] Surgeon Colon and Rectal Surgery 02/07/21 Ayde Peña MD [address] [facility] [address] [place] [address] Referring Physician Family Medicine 02/07/21
--- NOTE | 2024-12-21 17:17 | ED_ITS ---
HPI - SOB/Dyspnea General Chief Complaint: Shortness of Breath/Dyspnea Stated Complaint: low O2 Time Seen by Provider: 12/21/24 16:13 History of Present Illness HPI Narrative: 74-year-old female with a past medical history including COPD on 4 L baseline oxygen, type 2 diabetes, hypertension, chronic anticoagulation with Xarelto for atrial fibrillation. History of coronary disease and CABG. Patient presents to the ER for evaluation of dyspnea and hypoxia. She was saturating 77% even on her home oxygen dose. She was tachycardic and felt very dyspneic and had pursed lip breathing. Patient was at a routine follow-up from her previous ER visit several days ago. At that time she was evaluated for chest pain and discharged home after unremarkable workup. Patient denies any chest pain or chest tightness. She states that she is having difficulty in breathing. No nausea vomiting, fever, chills. States she occasionally gets this way but for last week she has been using her nebulizer without any treatment results. Related Data Home Medications ?Medication ?Instructions ?Recorded ?Confirmed ?Last Taken ?Type leflunomide 20 mg tablet 20 mg PO DAILY 07/04/19 11/10/24 01/13/24 History nystatin 100,000 unit/mL oral 1 ml PO QID PRN Pain 05/08/23 11/10/24 01/13/24 History suspension omega 0-ymi-zbb-fish oil 100 2 cap PO BID 06/12/23 11/10/24 01/13/24 History mg-160 mg-1,000 mg capsule (Fish Oil) furosemide 40 mg tablet 40 mg PO DAILY 10/21/23 11/10/24 01/13/24 History Allergies Allergy/AdvReac Type Severity Reaction Status Date / Time ciprofloxacin Allergy Mild Unknown Verified 12/21/24 14:35 codeine Allergy Unknown Unknown Verified 12/21/24 14:35 levofloxacin Allergy Unknown Unknown Verified 12/21/24 14:35 lisinopril Allergy Unknown Unknown Verified 12/21/24 14:35 amoxicillin (From Augmentin) AdvReac Severe Confusion Verified 12/21/24 14:35 clavulanic acid (From AdvReac Severe Confusion Verified 12/21/24 14:35 Augmentin) tramadol AdvReac Mild Confusion Verified 12/21/24 14:35 Review of Systems 2 Review of Systems: As reviewed above in HPI PMFSH Past Medical History Medical History Preop cardiovascular exam Restless leg syndrome 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 Hematochezia Chronic respiratory failure with hypoxia, on home oxygen therapy Type 2 diabetes mellitus Rectal bleeding Transient ischemic attack Chronic hyponatremia COVID Venous insufficiency Iron deficiency anemia Polymyalgia rheumatica Small vessel disease, cerebrovascular Chronic anticoagulation Paroxysmal atrial fibrillation Coronary artery disease Microscopic colitis Cubital tunnel syndrome on right Elevated liver enzymes Chronic diarrhea Exocrine pancreatic insufficiency COVID-19 Cervical arthritis Facial trauma Pneumonia Chronic obstructive pulmonary disease, unspecified Dyslipidemia Essential hypertension Gastro-esophageal reflux disease without esophagitis Multifocal atrial tachycardia Surgical History Surgical History History of heart artery stent History of cardiac catheterization History of bilateral knee replacement History of bilateral carpal tunnel release History of colonoscopy with polypectomy History of coronary artery bypass graft x 2 (12/2013) History of Achilles tendon repair History of spinal surgery Lumbar micro discectomy infusion. History of mitral valve repair History of shoulder surgery History of cataract extraction Left History of hand surgery trigger finger, thumb Family History Family History Mother Cerebrovascular accident Family history of diabetes mellitus in first degree relative Family history of coronary artery disease Acute myocardial infarction Diabetes mellitus Father Carcinoma of colon Family history of lung cancer Family history of malignant neoplasm of esophagus Sibling Liver disease Liver transplant recipient Other Family history of malignant neoplasm of brain Family history of malignant neoplasm of stomach Social History Social History Social History: Surrogate medical decision maker: Filippo Clifford, spouse. Code status: Full code. Smoking status: Never smoker Second hand tobacco smoke exposure: Yes Alcohol intake: current Alcohol use details: Rare alcohol use in moderation. Substance use: never Substance use type: does not use Do You Feel Safe in your Home?: Yes Lack of Transportation: No Lack of Food: Never True Current Housing: I Have Housing Concerned About Future Housing: Decline to Answer Difficulty Paying Gas/Electric Bills: Decline to Answer Difficulty Paying for Meds: Decline to Answer Currently Unemployed: Decline to Answer Education: Decline to Answer Difficulty w/ Childcare or Family Care: Decline to Answer Living arrangements: with family Occupation/Education: retired Additional occupation/education comments: Worked in [employer]. Gender identity (if verbalized by the patient): Female Spiritual care concerns: No Exam 2 Narrative: GENERAL: Elderly ill-appearing, not any acute distress, awake and answering questions although conversationally dyspneic HEAD: [Normocephalic, atraumatic.] EYES: [PERRLA and EOMI.] ENT: Nares clear, no rhinorrhea or epistaxis. Mucous membranes moist. NECK: Supple. CHEST: Slightly prolonged expiratory phase with some scattered asymmetric wheezing. Mild tachypnea. HEART: [Regular rate and rhythm]. No murmur heard. [Normal peripheral pulses.] ABDOMEN: [Soft, nondistended], [nontender], [No rigidity or guarding] EXTREMITIES: Normal range of motion. [No edema.] SKIN: Warm, dry, no rash. NEURO: [No focal deficits]. Alert and oriented [x3.] PSYCH: [Normal mood and affect.] Course Vital Signs Vital signs: Vital Signs Temperature 36.1 C L 12/21/24 14:16 Pulse Rate 86 12/21/24 14:16 Respiratory Rate 18 12/21/24 14:16 Blood Pressure 151/71 H 12/21/24 14:16 Pulse Oximetry 86 L 12/21/24 14:16 Oxygen Delivery Nasal Cannula 12/21/24 14:16 Oxygen Flow Rate 4 12/21/24 14:16 Temperature 36.8 C 12/21/24 14:29 Pulse Rate 104 H 12/21/24 19:19 Respiratory Rate 22 H 12/21/24 19:19 Blood Pressure 136/80 12/21/24 19:19 Pulse Oximetry 98 12/21/24 19:19 Oxygen Delivery Nasal Cannula 12/21/24 14:40 Oxygen Flow Rate 4 12/21/24 14:40 MDM - SOB/Dyspnea MDM Narrative Medical decision making narrative: 74-year-old female with significant comorbidities including coronary disease with CABG, atrial fibrillation on chronic Xarelto, hypertension, COPD on 4 L nasal oxygen. Patient presents to the emergency department with hypoxia, tachycardia and dyspnea. She was at her primary care for follow-up appointment from her recent ER visit for chest pain and was found to be hypoxic and tachycardic and having difficulty breathing. She was saturating in the upper 70s even with her supplemental oxygen and came to the ER where she was still hypoxic to 86 on 4 L nasal cannula. When she settled down her room she was up to 93% on 4 L nasal cannula but did have some asymmetric scattered wheezing on auscultation suspicious for potential reactive airway disease or COPD exacerbation. Could also be a cardiac wheeze from her significant comorbidities including coronary disease. Denies any chest pain or chest pressure, symmetric pulses throughout, she is awake and answering all questions appropriately. Workup was ordered this time including CBC, CMP, troponin, EKG, chest x-ray, CT of the chest with angiography phase given that she has atrial fibrillation. Low suspicion for pulmonary embolism but she has high risk. Nebulizer treatments ordered as well as magnesium and 40 mg Solu-Medrol dose. Placed on millinery worker and pulse oximetry and was re-evaluated. Workup shows no leukocytosis or anemia. Normal platelet count. Electrolytes show some minor hypokalemia which will be repleted with IV potassium but no other acute abnormalities. CO2 slightly elevated likely chronic retention from COPD. Normal creatinine, normal LFTs in glucose. Negative troponin. Negative viral swabs. CTA shows no PE or dissection but there is patchy ground-glass opacifications in bilateral upper lobe distribution suspicion for pneumonia versus pneumonitis. Given her risk factors and hypoxia requiring additional oxygen support and therapies we will treat this with coverage including ceftriaxone and azithromycin. EKG shows sinus rhythm, no ST segment elevations or depressions. Patient re-evaluated after breathing treatments and doing better. Antibiotics are initiated, saturating 95% on her home 4 L nasal cannula. Mild tachypnea remains. Awaiting discussion with the hospitalist for admission. Spoke to the hospitalist who accepted the patient to a telemetry monitored bed at this time and we went over patient's clinical exam, historical features, vital signs at this time and treatment plan. Patient comfortable with admission at this time. Medical Records Attestation: I reviewed the patient's medical records. Lab Data Attestation: I reviewed the patient's lab results. 12/21/24 14:41 12/21/24 14:41 Labs: Lab Results 12/21/24 Range/Units 14:41 WBC 7.9 (4.5-10.0) K/mm3 RBC 4.27 (4.2-5.4) M/mm3 Hgb 12.6 (12.0-15.0) g/dL Hct 39.0 (37.0-47.0) % MCV 91.3 (80-100) fl MCH 29.5 (26-34) pg MCHC 32.3 (32-36) g/dl RDW 15.3 H (11.5-14.5) % Plt Count 232 (150-375) k/mm3 MPV 11.3 H (7.4-10.4) fl Immature Gran % (Auto) 0.4 (0-0.5) % Neut % (Auto) 71.4 (45.5-73.1) % Lymph % (Auto) 11.7 L (18.3-44.2) % Stearns % (Auto) 12.0 H (2.6-8.5) % Eos % (Auto) 3.5 (0-4.4) % Baso % (Auto) 1.0 (0.2-1.2) % Lymph # (Auto) 0.93 (0.9-3.2) K/mm3 Stearns # (Auto) 1.0 H (0.1-0.6) K/mm3 Eos # (Auto) 0.3 (0-0.3) K/mm3 Baso # (Auto) 0.1 (0.0-0.1) K/mm3 Abs Immat Gran (auto) 0.03 (0.00-0.031) K/mm3 Absolute Neuts (auto) 5.7 (1.3-6.7) K/mm3 Absolute Nucleated RBC 0.000 (0.0-0.012) K/mm3 Nucleated RBC % 0.0 (0.0-0.2) % Sodium 136 L (137-145) mmol/L Potassium 3.0 L (3.4-5.0) mmol/L Chloride 99 (98-107) mmol/L Carbon Dioxide 31 H (22-30) mmol/L Anion Gap 6 (4-12) mmol/L BUN 13 D (7-17) mg/dL Creatinine 0.62 L (0.7-1.0) mg/dL Estim Creat Clear Calc 68 ml/min Estimated GFR > 60 (59 - ) Glucose 134 H (65-110) mg/dL Calcium 8.4 (8.4-10.2) mg/dL Total Bilirubin 0.6 (0.2-1.3) mg/dL AST 30 (14-36) U/L ALT 21 (6-35) U/L Alkaline Phosphatase 89 (38-126) U/L Troponin I < 0.012 (0.000-0.034) ng/mL Total Protein 7.0 (6.3-8.2) g/dL Albumin 3.6 (3.5-5.1) g/dL Influenza A (RT-PCR) Negative (Negative) Influenza B (RT-PCR) Negative (Negative) RSV (RT-PCR) Negative (Negative) SARS-CoV-2 RNA (RT-PCR) Negative (Negative) Imaging Data Attestation: I personally reviewed and interpreted this imaging study as follows: My impression: Impressions Chest X-Ray 12/21/24 15:01 IMPRESSION: Bilateral interstitial thickening which may indicate pneumonitis. Underlying fibrotic changes noted. Chest CTA 12/21/24 17:51 IMPRESSION: No pulmonary embolus. No thoracic aortic dissection. Patchy groundglass opacification with a bilateral upper lobe distribution. Critical Care Time Critical Care Time Critical Care Time: Yes Total Critical Care Time: 75 Discharge Plan Discharge Clinical Impression: Acute on chronic hypoxic respiratory failure, Pneumonia, Acute exacerbation of chronic obstructive pulmonary disease, Acute hypokalemia Patient Disposition: Still a Patient Condition: Stable Patient Language: Upper Sorbian Prescriptions: No Action leflunomide 20 mg tablet 20 mg PO DAILY Fish Oil 100-160-1,000 mg capsule 2 cap PO BID Rx Instructions: two pills morning, two pills hs diphenoxylate-atropine [Lomotil] 2.5-0.025 mg tablet 1 tablet PO TID PRN (Reason: Diarrhea) Qty: 60 0RF Repatha SureClick 140 mg/mL pen injector 140 mg subcut .every 2 weeks Qty: 2 11RF nystatin 100,000 unit/mL suspension 1 ml PO QID PRN (Reason: Pain) Rx Instructions: swish and swallow to each side of mouth furosemide 40 mg tablet 40 mg PO DAILY metformin 500 mg tablet extended release 24 hr 1,000 mg PO DAILY Qty: 180 3RF pantoprazole 40 mg tablet,delayed release (DR/EC) 40 mg PO QAM Qty: 90 3RF pravastatin 10 mg tablet See Rx Instructions .ROUTE .COMPLEX Qty: 90 2RF Dose Instruction: TAKE 1 TABLET BY MOUTH EVERY DAY Rx Instructions: TAKE 1 TABLET BY MOUTH EVERY DAY arformoterol 15 mcg/2 mL solution for nebulization See Rx Instructions .ROUTE .COMPLEX Qty: 30 11RF Dose Instruction: USE 1 VIAL IN NEBULIZER DAILY Rx Instructions: USE 1 VIAL IN NEBULIZER DAILY metoprolol tartrate 25 mg tablet 25 mg PO BID Qty: 60 5RF Xarelto 20 mg tablet See Rx Instructions .ROUTE .COMPLEX Qty: 30 5RF Dose Instruction: TAKE 1 TABLET BY MOUTH EVERY DAY MUST ADMINISTER WITH EVENING MEAL Rx Instructions: TAKE 1 TABLET BY MOUTH EVERY DAY MUST ADMINISTER WITH EVENING MEAL pramipexole 0.5 mg tablet 0.5 mg PO HS Qty: 90 1RF sotalol 80 mg tablet See Rx Instructions .ROUTE .COMPLEX Qty: 180 2RF Dose Instruction: TAKE 1 TABLET BY MOUTH TWICE A DAY Rx Instructions: TAKE 1 TABLET BY MOUTH TWICE A DAY tirzepatide 5 mg/0.5 mL pen injector 5 mg subcut WEEKLY Qty: 2 2RF Follow-up/Referrals: Parminder Rojas MD [Primary Care Provider] - Time of Disposition: 19:21
[2024-12-21 17:21] LABS: Troponin I < 0.012 ng/mL (0.000-0.034)
[2024-12-21] MEDS: ALBUTEROL SULFATE NEB 2.5 MG/3 ML INH 10 MG INHALATION (17:44)
[2024-12-21] MEDS: IPRATROPIUM BR 0.02% INH SOLN 0.5 MG/2.5 ML VIAL 1 MG INHALATION (17:45)
--- OUTSIDE RECORDS SUMMARY | 2024-12-21 17:45 | XMS_ITS | Clinical Summary ---
Author Organization [facility] Address [address] [place] [address] Care Team Providers Care Specialist Icu Name Role Phone Parminder Rojas MD Primary Care Provider [phone] Allergies Active Allergy Reactions Criticality Noted Date [...] - 1-dose 75+ series) 02/12/[address] [place] [address] [employer] PPO MCR Care Teams Specialist Icu Relationship Specialty Start Date End Date Parminder Rojas MD [address] [place] [id number] PCP - General Family Practice 02/04/22
--- OUTSIDE RECORDS SUMMARY | 2024-12-21 17:46 | XMS_ITS | Clinical Summary ---
Author Organization [facility] Address [address] [place] [address] Care Team Providers Care Nuclear Operations Specialist Name Role Phone Max Carpenter MD Unavailable [phone] Source Comments [facility],non-owned Affiliates and Associated Physician Practices is amultiple site organization consisting of ambulatory clinics and hospital sitesin [place], [place], [place] and [place]. This disclosure is being madepursuant to the Care Everywhere program and may not contain all information available regarding this patient. Last updated 18.[facility] Allergies Active Allergy Reactions Criticality Noted Date [...] on file Legal Sex Female 6:12 AM FIELD OPERATOR Gender Identity Not on file Sexual Orientation Not on file Last Filed Vital Signs Vital Sign Reading Time Taken Comments Blood Pressure 134/68 07/22/2011 4:17 PM FIELD OPERATOR Pulse 81 07/22/2011 4:17 PM FIELD OPERATOR Temperature 36.9 C (98.5 F) 07/22/2011 4:17 PM FIELD OPERATOR Respiratory Rate 18 07/22/2011 4:17 PM FIELD OPERATOR Oxygen Saturation 96% 07/22/2011 4:17 PM FIELD OPERATOR Inhaled Oxygen Concentration - - Weight 104.3 kg (230 lb) 07/22/2011 6:45 AM FIELD OPERATOR Height 160 cm (5' 3 ) 07/22/2011 6:45 AM FIELD OPERATOR Body Mass Index 40.74 07/22/2011 6:45 AM FIELD OPERATOR Plan of Treatment Health Maintenance Due Date [...] this topic Insurance [employer] AETNA MEDICARE [facility] SELF PAY NO INSURANCE Member Subscriber Plan / Payer (Ef fective for All Dates) Name:Laura Valenzuela Member ID:Not on file Relation to Subscriber:Not on file Name:LAURA VALENZUELA Subscriber ID:Not on file Address: [address] [place] [address] Payer ID:Not on file Group ID:Not on file Type:Self Pay Address: [place], [place] Advance Directives * FULL RESUSCITATION (Latest Code Status on File) Date Activated Date Inactivated Comments 07/22/2011 12:27 PM 07/23/2011 6:58 AM Care Teams Nuclear Operations Specialist Relationship Specialty Start Date End Date Max Carpenter MD Physician Rheumatology 08/10/11
--- OUTSIDE RECORDS SUMMARY | 2024-12-21 17:46 | XMS_ITS | Encounter Summary ---
Author Organization [facility] Address [address] [place] [address] Care Team Providers Care Collar Separator Name Role Phone Filippo Carpenter MD Unavailable Encounter Details Date Type Department Care Team (Late st Contact Info) Description 07/19/2020 Lab Requisition [facility] [address] [place] [address] Zora Gilmore MD [address] [facility] [address] [place] [address] Social History Tobacco Use Types Packs/Day Years Used Date Smoking Tobacco: Never Alcohol Use Standard Drinks/Week Comments No 0 (1 standard drink = 0.6 oz pur e alcohol) Comments No Sex and Gender Information Value Date Recorded Sex Assigned at Not on file Legal Sex Female 6:12 AM METAL FINISH INSPECTOR Gender Identity Not on file Sexual Orientation Not on file documented as of this encounter Plan of Treatment Not on file documented as of this encounter Procedures Procedure Name Priority Date/Time Associated Diagnosis Comments DERMATOPATHOLOGY Routine 07/18/2020 12:0 0 AM METAL FINISH INSPECTOR documented in this encounter Results * DERMATOPATHOLOGY (07/18/2020 12:00 AM METAL FINISH INSPECTOR) Case Report Dermatopathology Report Case: [id number] Authorizing Provider: Zora Gilmore MD Collected: 07/18/2020 12:00 AM Ordering Location: [facility] Received: 07/19/2020 05:55 AM Pathologist: Miranda Brennan MD Specimen: Skin, nose tip 0 7:17 PM [facility] Final Diagnosis Specimen A. SKIN, nose tip: ACTINIC KERATOSIS (L57.0) (see microscopic description) 0 7:17 PM METAL FINISH INSPECTOR DERMATOPATHOLOGY LABORATORY Clinical History R/O BCC,AK 0 7:17 PM METAL FINISH INSPECTOR DERMATOPATHOLOGY LABORATORY Gross Description Specimen A: Received is one formalin filled container labeled with the patient's name and designated nose tip. The specimen consists of a shave biopsy measuring 3x3x1 mm. Jar 0. 0 7:17 PM METAL FINISH INSPECTOR DERMATOPATHOLOGY LABORATORY Microscopic Description Specimen A. SKIN, nose tip: There is focal parakeratosis. The lower half of the epidermis shows disorderly maturation of keratinocytes with nuclear pleomorphism. Additional deeper sections were obtained and reviewed. 0 7:17 PM [facility] Disclaimer An external and internal positive and negative controls are appropriate for the histochemical, immunohistochemical and immunofluorescence stain(s) in this case (if any), except where stated explicitly. The performance characteristics of the stain(s) cited in this report were developed and its performance characteristic determined by the Dermatopathology Laboratory at [facility], directed by Dr. Krys Villagran. These tests need not be, and therefore are not, approved by the [place] Food and Drug Administration. The tests are used for clinical purposes. Billing Codes Specimen Charges Stain Charges 90995 1 0 7:17 PM METAL FINISH INSPECTOR DERMATOPATHOLOGY LABORATORY Embedded Images 0 7:17 PM METAL FINISH INSPECTOR DERMATOPATHOLOGY LABORATORY Pathology/Cytolog y TISSUE SPECIMEN FROM SKIN / Unknown 07/18/2020 07/19/2020 5:55 AM METAL FINISH INSPECTOR us Zora Gilmore MD LAB - PATHOLOGY/CYTOLOGY ORD ERABLES Final Result DERMATOPATHOLOGY LABORATORY [facility] - Department of Dermatology [address] [phone] documented in this encounter Visit Diagnoses Not on filedocumented in this encounter Care Teams Collar Separator Relationship Specialty Start Date End Date Filippo Carpenter MD Physician Rheumatology 08/10/11 documented as of this encounter
--- OUTSIDE RECORDS SUMMARY | 2024-12-21 17:46 | XMS_ITS | Clinical Summary ---
Author Organization [facility] Address [address], [facility] [address] [place] [address] Phone Care Team Providers Care Poultry Buyer Name Role Phone Parminder Rojas MD Primary Care Provider [phone] Allergies Active Allergy Reactions Criticality Noted Date [...] UNIT Tablet Take by mouth. Activ e [place]-3 Fatty Acids (FISH OIL PO) Take by [...] Maintenance Insurance MEDICARE C AETNA Care Teams Poultry Buyer Relationship Specialty Start Date End Date Parminder Rojas MD [address] [address] PCP - General Family Medicine 04/08/18
--- OUTSIDE RECORDS SUMMARY | 2024-12-21 17:46 | XMS_ITS | Referral Summary ---
Author Organization [facility] Address [address] [place] [address] Care Team Providers Care Vending Machine Coin Collector Name Role Phone Parminder Rojas MD Primary Care Provider [phone] Yannick Guevara MD Unavailable [phone] Ayde Peña MD Unavailable [phone] Encounters Date Type Department Care Team Description 12/01/2024 11:10 AM CDT Lab [facility] [address] [place] [address] 11/29/2024 Orders Only Neurology Nicole Brumfield MD [...] on file Legal Sex Female 2:00 AM LINE DANCER Gender Identity Not on file Sexual Orientation Not on file Last Filed Vital Signs Vital Sign Reading Time Taken Comments Blood Pressure 161/74 08/26/2024 1:13 PM LINE DANCER Pulse 63 08/26/2024 1:13 PM LINE DANCER Temperature 36.1 C (96.9 F) 08/06/2021 1:42 PM LINE DANCER Respiratory Rate 16 07/20/2024 9:06 AM LINE DANCER Oxygen Saturation 92% 07/20/2024 9:06 AM LINE DANCER Inhaled Oxygen Concentration - - Weight 81.6 kg (180 lb) 09/14/2024 12:16 PM LINE DANCER Height 154.9 cm (5' 1 ) 09/14/2024 12:16 PM LINE DANCER Body Mass Index 34.01 09/14/2024 12:16 PM LINE DANCER Plan of Treatment Not on file Procedures [...] MD LAB BLOOD ORDERABLES Fin al Result [facility] [address] Department [place] [address] * (ABNORMAL) Differential, auto (12/01/2024 11:11 AM CDT) Neutrophil abs 4.61 1.50 - 6.50 K/cumm Imm gran abs 0.05 0.00 - 0.10 K/cumm [facility] Lymphocyte abs 1.45 0.80 - 3.30 K/cumm [facility] Monocyte abs 0.88(H) 0.20 - 0.80 K/cumm [facility] Eosinophil abs 0.26 0.00 - 0.50 K/cumm [facility] Basophil abs 0.08 0.00 - 0.10 K/cumm [facility] Neutrophil pct 62.9 % [facility] Comment: Interpretive Data Percent cell count reference ranges are not reported, since discordance with absolute values may lead to misinterpretation of CBC data. Current Interpretive Data was last revised on 2017. Imm gran pct 0.7 % [facility] Comment: Interpretive Data Percent cell count reference ranges are not reported, since discordance with absolute values may lead to misinterpretation of CBC data. Current Interpretive Data was last revised on 2017. Lymphocyte pct 19.8 % [facility] Comment: Interpretive Data Percent cell count reference ranges are not reported, since discordance with absolute values may lead to misinterpretation of CBC data. Current Interpretive Data was last revised on 2017. Monocyte pct 12.0 % [facility] Comment: Interpretive Data Percent cell count reference ranges are not reported, since discordance with absolute values may lead to misinterpretation of CBC data. Current Interpretive Data was last revised on 2017. Eosinophil pct 3.5 % [facility] Comment: Interpretive Data Percent cell count reference ranges are not reported, since discordance with absolute values may lead to misinterpretation of CBC data. Current Interpretive Data was last revised on 2017. Basophil pct 1.1 % [facility] Comment: Interpretive Data Percent cell count reference ranges are not reported, since discordance with absolute values may lead to misinterpretation of CBC data. Current Interpretive Data was last revised on 2017. Blood 12/01/2024 11:1 1 AM CDT 12/01/2024 12:21 PM CDT us Filippo Carpenter MD LAB BLOOD ORDERABLES Fin al Result Performing Organization Address [facility]/ZIP Co de Phone Number [facility] [address] [place] [address] * (ABNORMAL) CBC with auto differential (12/01/2024 11:11 AM CDT) WBC 7.33 3.80 - 9.90 K/cumm Hgb 13.0 11.9 - 15.5 g/dL [facility] Hct 40.6 35.6 - 45.5 % [facility] Plt 273 150 - 400 K/cumm [facility] MPV 11.9 9.1 - 12.3 fL [facility] RBC 4.41 3.90 - 5.20 M/cumm [facility] MCV 92.1 81.3 - 96.4 fL [facility] MCH 29.5 27.1 - 33.3 pg [facility] MCHC 32.0(L) 32.3 - 35.7 g/dL [facility] RDW CV 14.8 11.1 - 14.9 % [facility] RDW SD 48.4(H) 35.7 - 48.1 fL [facility] NRBC abs 0.00 0.00 - 0.01 K/cumm [facility] Blood 12/01/2024 11:1 1 AM CDT 12/01/2024 12:21 PM CDT us Filippo Carpenter MD LAB BLOOD ORDERABLES Fin al Result Performing Organization Address City/[facility]/ZIP Co de Phone Number [facility] [address] [place] [address] * Creatinine (12/01/2024 11:11 AM CDT) Creatinine 0.74 0.60 - 1.10 mg/dL Blood 12/01/2024 11:1 1 AM CDT 12/01/2024 12:21 PM CDT Filippo Carpenter MD LAB BLOOD ORDERABLES Fin al Result Performing Organization Address City/[facility]/ZIP Co de Phone Number [facility] [address] [facility] [place] [address] * (ABNORMAL) Hepatic function panel (12/01/2024 11:11 AM CDT) Bilirubin, total 0.4 0.1 - 1.2 mg/dL Bilirubin, direct 0.2 0.1 - 0.3 mg/dL [facility] Protein, pl 6.4(L) 6.5 - 8.5 g/dL [facility] Albumin 3.6 3.5 - 5.0 g/dL [facility] Alk phos 53 40 - 130 Units/L [facility] ALT 14 7 - 45 Units/L [facility] AST 17 10 - 45 Units/L [facility] Blood 12/01/2024 11:1 1 AM CDT 12/01/2024 12:21 PM CDT Filippo Carpenter MD LAB BLOOD ORDERABLES Fin al Result [facility] [address] Department [place] [address] * SCAN - NEUROLOGY (11/29/2024 10:50 AM CDT) Anatomical Region Laterality Modality Other Nicole Brumfield MD Final Result from Last 3 Months Insurance [facility] [employer] PPO [facility] [employer] PPO Care Teams Vending Machine Coin Collector Relationship Specialty Start Date End Date Parminder Rojas MD PCP - General 01/19/14 Yannick Guevara MD [phone] [place] [address] Surgeon Colon and Rectal Surgery 02/07/21 Ayde Peña MD [address] [place] [address] Referring Physician Family Medicine 02/07/21
--- OUTSIDE RECORDS SUMMARY | 2024-12-21 17:46 | XMS_ITS | Clinical Summary ---
Author Organization [facility] Address [address] [place] [address] Care Team Providers Care Facility Maintenance Worker Name Role Phone Parminder Rojas MD Primary Care Provider [phone] Yannick Guevara MD Unavailable [phone] Ayde Peña MD Unavailable [phone] Allergies Active Allergy Reactions Criticality Noted [...] Team Description 12/01/2024 11:10 AM CDT Lab [address] [address] 11/29/2024 Orders Only Neurology Nicole Brumfield MD [...] on file Legal Sex Female 2:00 AM CUSTODIAL SERVICES MANAGER Gender Identity Not on file Sexual Orientation Not on file Obstetrics History Last Filed Vital Signs Vital Sign Reading Time Taken Comments Blood Pressure 161/74 08/26/2024 1:13 PM CUSTODIAL SERVICES MANAGER Pulse 63 08/26/2024 1:13 PM CUSTODIAL SERVICES MANAGER Temperature 36.1 C (96.9 F) 08/06/2021 1:42 PM CUSTODIAL SERVICES MANAGER Respiratory Rate 16 07/20/2024 9:06 AM CUSTODIAL SERVICES MANAGER Oxygen Saturation 92% 07/20/2024 9:06 AM CUSTODIAL SERVICES MANAGER Inhaled Oxygen Concentration - - Weight 81.6 kg (180 lb) 09/14/2024 12:16 PM CUSTODIAL SERVICES MANAGER Height 154.9 cm (5' 1 ) 09/14/2024 12:16 PM CUSTODIAL SERVICES MANAGER Body Mass Index 34.01 09/14/2024 12:16 PM CUSTODIAL SERVICES MANAGER Plan of Treatment Health Maintenance Due Date [...] LAB BLOOD ORDERABLES Fin al Result [facility] [address] [place] [address] [phone] * (ABNORMAL) Differential, auto (12/01/2024 11:11 AM CDT) Neutrophil abs 4.61 1.50 - 6.50 K/cumm Imm gran abs 0.05 0.00 - 0.10 K/cumm [facility] Lymphocyte abs 1.45 0.80 - 3.30 K/cumm [facility] Monocyte abs 0.88(H) 0.20 - 0.80 K/cumm [facility] Eosinophil abs 0.26 0.00 - 0.50 K/cumm [facility] Basophil abs 0.08 0.00 - 0.10 K/cumm [facility] Neutrophil pct 62.9 % [facility] Comment: Interpretive Data Percent cell count reference ranges are not reported, since discordance with absolute values may lead to misinterpretation of CBC data. Current Interpretive Data was last revised on 2017. Imm gran pct 0.7 % [facility] Comment: Interpretive Data Percent cell count reference ranges are not reported, since discordance with absolute values may lead to misinterpretation of CBC data. Current Interpretive Data was last revised on 2017. Lymphocyte pct 19.8 % [facility] Comment: Interpretive Data Percent cell count reference ranges are not reported, since discordance with absolute values may lead to misinterpretation of CBC data. Current Interpretive Data was last revised on 2017. Monocyte pct 12.0 % [facility] Comment: Interpretive Data Percent cell count reference ranges are not reported, since discordance with absolute values may lead to misinterpretation of CBC data. Current Interpretive Data was last revised on 2017. Eosinophil pct 3.5 % [facility] Comment: Interpretive Data Percent cell count reference ranges are not reported, since discordance with absolute values may lead to misinterpretation of CBC data. Current Interpretive Data was last revised on 2017. Basophil pct 1.1 % [facility] Comment: Interpretive Data Percent cell count reference ranges are not reported, since discordance with absolute values may lead to misinterpretation of CBC data. Current Interpretive Data was last revised on 2017. Blood 12/01/2024 11:1 1 AM CDT 12/01/2024 12:21 PM CDT us Filippo Carpenter MD LAB BLOOD ORDERABLES Fin al Result Performing Organization Address [facility] Co de Phone Number [facility] [address] [employer] [place] [address] * (ABNORMAL) CBC with auto differential (12/01/2024 11:11 AM CDT) WBC 7.33 3.80 - 9.90 K/cumm Hgb 13.0 11.9 - 15.5 g/dL [facility] Hct 40.6 35.6 - 45.5 % [facility] Plt 273 150 - 400 K/cumm [facility] MPV 11.9 9.1 - 12.3 fL [facility] RBC 4.41 3.90 - 5.20 M/cumm [facility] MCV 92.1 81.3 - 96.4 fL [facility] MCH 29.5 27.1 - 33.3 pg [facility] MCHC 32.0(L) 32.3 - 35.7 g/dL [facility] RDW CV 14.8 11.1 - 14.9 % [facility] RDW SD 48.4(H) 35.7 - 48.1 fL [facility] NRBC abs 0.00 0.00 - 0.01 K/cumm [facility] Blood 12/01/2024 11:1 1 AM CDT 12/01/2024 12:21 PM CDT us Filippo Carpenter MD LAB BLOOD ORDERABLES Fin al Result [facility] [address] [place] [address] * Creatinine (12/01/2024 11:11 AM CDT) Creatinine 0.74 0.60 - 1.10 mg/dL Blood 12/01/2024 11:1 1 AM CDT 12/01/2024 12:21 PM CDT Filippo Carpenter MD LAB BLOOD ORDERABLES Fin al Result Performing Organization Address [facility] de Phone Number [facility] [address] [facility] [place] [address] * (ABNORMAL) Hepatic function panel (12/01/2024 11:11 AM CDT) [facility] Bilirubin, total 0.4 0.1 - 1.2 mg/dL Bilirubin, direct 0.2 0.1 - 0.3 mg/dL [facility] Protein, pl 6.4(L) 6.5 - 8.5 g/dL [facility] Albumin 3.6 3.5 - 5.0 g/dL [facility] Alk phos 53 40 - 130 Units/L [facility] ALT 14 7 - 45 Units/L [facility] AST 17 10 - 45 Units/L [facility] Blood 12/01/2024 11:1 1 AM CDT 12/01/2024 12:21 PM CDT Filippo Carpenter MD LAB BLOOD ORDERABLES Fin al Result Performing Organization Address [facility] de Phone Number [facility] [address] [place] [address] * SCAN - NEUROLOGY (11/29/2024 10:50 AM CDT) Anatomical Region Laterality Modality Other us Nicole Brumfield MD Final Result from Last 3 Months Insurance [employer] PPO [employer] Care Teams Facility Maintenance Worker Relationship Specialty Start Date End Date Parminder Rojas MD PCP - General 01/19/14 Yannick Guevara MD [phone] [place] [address] Surgeon Colon and Rectal Surgery 02/07/21 Ayde Peña MD [address] [facility] [address] [place] [address] Referring Physician Family Medicine 02/07/21
--- OUTSIDE RECORDS SUMMARY | 2024-12-21 17:46 | XMS_ITS | Encounter Summary ---
Author Organization [facility] Address [address] [facility] [place] [address] Care Team Providers Care Sample Prep Technician Name Role Phone Filippo Carpenter MD Unavailable [phone] Encounter Details Date Type Department Care Team (Late st Contact Info) Description 01/27/2019 Lab Requisition [facility] [address] [facility] [place] [address] Bettina Espino DO [address] [facility] [address] [place] [address] Social History Tobacco Use Types Packs/Day Years Used Date Smoking Tobacco: Never Alcohol Use Standard Drinks/Week Comments No 0 (1 standard drink = 0.6 oz pur e alcohol) Comments No Sex and Gender Information Value Date Recorded Sex Assigned at Not on file Legal Sex Female 6:12 AM 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 Jar 0. 12:24 PM CDT DERMATOPATHOLOGY LABORATORY [...] characteristic determined by the Dermatopathology Laboratory at [facility], directed by Dr. Krys Villagran. These tests need not be, and therefore are not, approved by the [place] Food and Drug Administration. The tests are used for clinical purposes. Billing Codes Specimen Charges Stain Charges 35268 1 12:24 PM CDT DERMATOPATHOLOGY LABORATORY Embedded Images 12:24 PM CDT DERMATOPATHOLOGY LABORATORY Pathology/Cytolog y TISSUE SPECIMEN FROM SKIN / Unknown 01/26/2019 01/27/2019 10:42 AM CDT Bettina Espino DO LAB - PATHOLOGY/CYTOLOGY ORDERABLES Final Result DERMATOPATHOLOGY LABORATORY [facility] - Department of Dermatology [address] [place] [address], 5th Floor Lab [address] [phone] documented in this encounter Visit Diagnoses Not on filedocumented in this encounter Care Teams Sample Prep Technician Relationship Specialty Start Date End Date Filippo Carpenter MD Physician Rheumatology 08/10/11 documented as of this encounter
[2024-12-21] MEDS: MAGNESIUM SULF 2 GM/WATER 50ML 2 GM/50 ML BAG IVPB (17:49)
[2024-12-21] MEDS: methylPREDNISolone SOD SUCC 40 MG VIAL IV PUSH (17:49)
[2024-12-21] MEDS: AZITHROMYCIN 500 MG/NS 250 ML 500 MG/250 ML BAG 250 MG IVPB (18:43)
[2024-12-21] MEDS: KCL 20 MEQ/SW 100 ML 100 ML 50 MEQ IVPB (18:58)
--- NOTE | 2024-12-21 19:23 | PC.NURSE ---
Assumed care of patient after receiving bedside report from MARILYN Golden. @ [phone]
--- NOTE | 2024-12-21 20:40 | P.HP_ITS ---
H&P: HPI History of Present Illness Date/Time: 12/21/24 20:40 Chief Complaint: Shortness of breath. Narrative: This is a 74-year-old female with history of chronic obstructive pulmonary disease, chronic respiratory failure on 4 L nasal cannula, paroxysmal atrial fibrillation on chronic anticoagulation, coronary artery disease status post bypass, hypertension, rheumatoid arthritis, polymyalgia rheumatica, microscopic colitis, gastritis, chronic diarrhea, and other comorbidities who presented to the emergency department for evaluation of shortness of breath. She was seen in the emergency department on 12/16/2024 with complaints of chest pain at which time she rule out for acute coronary syndrome. She had a follow-up appointment with her primary care provider today and on vital sign check she was noted to be tachycardic with an SpO2 in the low 80s. She apparently had pursed lipped breathing and with further questioning admitted that she had been feeling short of breath for the last week or so, much worse today. She has had some wheezing, sneezing, rhinorrhea, and a dry, nonproductive cough. She has been using her rescue inhaler with some benefit. She is not on maintenance inhalers at home and has a prescription for arformoterol which she has not been using for unclear reasons. Regarding her chest pain, she continues to have intermittent ?sticking? pain in the right mid chest which is fleeting and only occurs a couple of times a day. She has chronic orthopnea which is unchanged. She also has chronic lower extremity edema which improves when she takes furosemide although she tends to forget that sometimes. It is not been present for several days. She denies fever, chills, sweats, nausea, vomiting, pleuritic pain, nausea, vomiting, diarrhea, and calf pain. In the ED: Vital signs on arrival include a temperature of 97?, blood pressure 151/71, pulse 86, respiratory 18, SpO2 86% on 4 L. labs are significant for WBC count of 7.9, sodium 136, potassium 3.0, BUN 13, creatinine 0.26, glucose 151, troponin less than 0.012. She tested negative for influenza, RSV, and COVID. CTA of the chest was negative for pulmonary embolus and thoracic aortic dissection but did show patchy ground-glass opacification with a bilateral upper lobe distribution. EKG showed sinus rhythm with frequent atrial premature complexes, incomplete right bundle-branch block, consider inferior infarct age indetermi naima. There was no significant change when compared to prior tracings. She was given a nebulizer treatment, magnesium sulfate 2 g, potassium chloride 20 mEq, methylprednisolone 40 mg, azithromycin 500 mg, and ceftriaxone 1 g. She is being admitted in this setting for further treatment. Review of Systems Review of Systems: 12 systems were reviewed and are negativ e except for as per HPI. [facility] Past Medical History Medical History (Updated 12/21/24 @ 22:05 by Daniela Nix PA-C) Pulmonary hypertension Chronic idiopathic myocarditis Restless leg syndrome 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 Chronic respiratory failure with hypoxia, on home oxygen therapy Transient ischemic attack Chronic hyponatremia Venous insufficiency Iron deficiency anemia Polymyalgia rheumatica Small vessel disease, cerebrovascular Chronic anticoagulation Paroxysmal atrial fibrillation Coronary artery disease Microscopic colitis Cubital tunnel syndrome on right Chronic diarrhea Exocrine pancreatic insufficiency COVID-19 Cervical arthritis Pneumonia Chronic obstructive pulmonary disease, unspecified Dyslipidemia Essential hypertension Gastro-esophageal reflux disease without esophagitis Multifocal atrial tachycardia Surgical History Surgical History History of heart artery stent History of cardiac catheterization History of bilateral knee replacement History of bilateral carpal tunnel release History of colonoscopy with polypectomy History of coronary artery bypass graft x 2 (12/2013) History of Achilles tendon repair History of spinal surgery Lumbar micro discectomy infusion. History of mitral valve repair History of shoulder surgery History of cataract extraction Left History of hand surgery trigger finger, thumb Family History Family History Mother Cerebrovascular accident Family history of diabetes mellitus in first degree relative Family history of coronary artery disease Acute myocardial infarction Diabetes mellitus Father Carcinoma of colon Family history of lung cancer Family history of malignant neoplasm of esophagus Sibling Liver disease Liver transplant recipient Other Family history of malignant neoplasm of brain Family history of malignant neoplasm of stomach Social History Social History (Updated 12/21/24 @ 22:03 by Daniela Nix PA-C) Social History: Surrogate medical decision maker: Filippo Clifford, spouse. Code status: Full code. Smoking status: Never smoker Second hand tobacco smoke exposure: Yes Alcohol intake: current Alcohol use details: Rare alcohol use in moderation. Substance use: never Substance use type: does not use Do You Feel Safe in your Home?: Yes Lack of Transportation: No Lack of Food: Never True Current Housing: I Have Housing Concerned About Future Housing: No Difficulty Paying Gas/Electric Bills: No Difficulty Paying for Meds: No Currently Unemployed: No Education: High School Diploma/GED Difficulty w/ Childcare or Family Care: No Living arrangements: with family Additional living arrangements comments: Lives in [facility]. Occupation/Education: retired Additional occupation/education comments: Worked in [employer]. Spiritual care concerns: No Meds Home Medications and Allergies Home Medications ?Medication ?Instructions ?Recorded ?Confirmed ?Type leflunomide 20 mg tablet 20 mg PO HS 07/04/19 12/21/24 History nystatin 100,000 unit/mL oral 1 ml PO QID PRN Pain 05/08/23 12/21/24 History suspension omega 4-uxe-ajt-fish oil 100 2 cap PO BID 06/12/23 12/21/24 History mg-160 mg-1,000 mg capsule (Fish Oil) furosemide 40 mg tablet 40 mg PO DAILY 10/21/23 12/21/24 History pantoprazole 40 mg tablet,delayed 40 mg PO QAM #90 tabs 04/19/24 12/21/24 Rx release diphenoxylate-atropine 2.5 1 tablet PO TID PRN Diarrhea #60 04/28/24 12/21/24 Rx mg-0.025 mg tablet (Lomotil) tabs pravastatin 10 mg tablet See Rx Instructions .Route 06/13/24 12/21/24 Rx .COMPLEX #90 tabs arformoterol 15 mcg/2 mL solution See Rx Instructions .Route 06/16/24 12/21/24 Rx for nebulization .COMPLEX #30 ea metoprolol tartrate 25 mg tablet 25 mg PO BID #60 tabs 07/15/24 12/21/24 Rx rivaroxaban 20 mg tablet (Xarelto) See Rx Instructions .Route 07/26/24 12/21/24 Rx .COMPLEX #30 tabs pramipexole 0.5 mg tablet 0.5 mg PO HS #90 tabs 09/09/24 12/21/24 Rx sotalol 80 mg tablet See Rx Instructions .Route 10/31/24 12/21/24 Rx .COMPLEX #180 tabs evolocumab 140 mg/mL subcutaneous 140 mg subcut .every 2 weeks #2 mL 11/10/24 12/21/24 Rx pen injector (Repnarinder Alvaradoick) metformin 500 mg tablet,extended 1,000 mg PO DAILY 12/21/24 12/21/24 History release 24 hr tirzepatide 5 mg/0.5 mL 5 mg subcut WEEKLY 12/21/24 12/21/24 History subcutaneous pen injector Allergies Allergy/AdvReac Type Severity Reaction Status Date / Time ciprofloxacin Allergy Mild Unknown Verified 12/21/24 14:35 codeine Allergy Unknown Unknown Verified 12/21/24 14:35 levofloxacin Allergy Unknown Unknown Verified 12/21/24 14:35 lisinopril Allergy Unknown Unknown Verified 12/21/24 14:35 amoxicillin (From Augmentin) AdvReac Severe Confusion Verified 12/21/24 14:35 clavulanic acid (From AdvReac Severe Confusion Verified 12/21/24 14:35 Augmentin) tramadol AdvReac Mild Confusion Verified 12/21/24 14:35 Vital Signs Vital Signs - 24 hr 12/21/24 14:16 12/21/24 14:29 12/21/24 14:29 Temperature 97 F L 98.3 F Pulse Rate 86 98 98 Respiratory Rate 18 22 H 20 Blood Pressure 151/71 H 143/83 H Pulse Oximetry 86 L 92 92 Oxygen Delivery Nasal Cannula Nasal Cannula Oxygen Flow Rate 4 5 12/21/24 14:30 12/21/24 14:31 12/21/24 14:40 Temperature Pulse Rate 102 H 96 Respiratory Rate 25 H 20 Blood Pressure 143/83 H 143/83 H Pulse Oximetry 90 92 93 Oxygen Delivery Nasal Cannula Oxygen Flow Rate 4 12/21/24 15:01 12/21/24 15:19 12/21/24 16:14 Temperature Pulse Rate 110 H 107 H 102 H Respiratory Rate 33 H 28 H 30 H Blood Pressure 142/98 H Pulse Oximetry 93 94 Oxygen Delivery Oxygen Flow Rate 12/21/24 16:16 12/21/24 17:11 12/21/24 17:45 Temperature Pulse Rate 94 113 H Respiratory Rate 28 H 30 H 28 H Blood Pressure 180/93 H Pulse Oximetry 93 95 Oxygen Delivery Oxygen Flow Rate 12/21/24 19:19 Temperature Pulse Rate 104 H Respiratory Rate 22 H Blood Pressure 136/80 Pulse Oximetry 98 Oxygen Delivery Oxygen Flow Rate Exam Narrative: General:?Nontoxic-appearing female sitting up in bed watching television in no distress. Weight: 81.5 kg. BMI: 33.9. HEENT:??PERRL, EOMI. Sclera anicteric. Moist mucous membranes. Neck:??Supple. No lymphadenopathy or JVD. Respiratory:?Respirations are nonlabored and she appears in no acute respiratory distress. Lung sounds are diminished throughout with rare expiratory wheezes. Cardiovascular:?Irregularly irregular rate and rhythm. Soft murmur at the apex. Gastrointestinal:??Abdomen is soft, nontender, and nondistended with positive bowel sounds. Skin:??Warm and dry.?Generalized pallor. Extremities:??No cyanosis or clubbing. 1+ lower extremity bilaterally which she states is chronic. Radial and pedal pulses intact. No palpable knots or cords. Neurological:??Alert.? Cranial nerves 2-12 are grossly intact.? No gross focal deficits to casual conversation. Psychiatric:??Pleasant and cooperative with appropriate mood and affect. H&P: Results Labs Labs: Short CBC 12/21/24 Range/Units 14:41 WBC 7.9 (4.5-10.0) K/mm3 Hgb 12.6 (12.0-15.0) g/dL Hct 39.0 (37.0-47.0) % Plt Count 232 (150-375) k/mm3 BMP 12/21/24 14:41 Sodium 136 L Potassium 3.0 L Chloride 99 Carbon Dioxide 31 H BUN 13 D Creatinine 0.62 L Glucose 134 H Calcium 8.4 Cardiac Enzymes 12/21/24 Range/Units 14:41 Troponin I < 0.012 (0.000-0.034) ng/mL Liver Function 12/21/24 Range/Units 14:41 Total Bilirubin 0.6 (0.2-1.3) mg/dL AST 30 (14-36) U/L ALT 21 (6-35) U/L Alkaline Phosphatase 89 (38-126) U/L Albumin 3.6 (3.5-5.1) g/dL Imaging Chest X-Ray 12/21/24 15:01 IMPRESSION: Bilateral interstitial thickening which may indicate pneumonitis. Underlying fibrotic changes noted. Chest CTA 12/21/24 17:51 IMPRESSION: No pulmonary embolus. No thoracic aortic dissection. Patchy groundglass opacification with a bilateral upper lobe distribution. Assessment and Plan Assessment and plan (1) Acute on chronic hypoxic respiratory failure: Code(s): J96.21 - Acute and chronic respiratory failure with hypoxia Status: Acute (2) Pneumonia: Code(s): J18.9 - Pneumonia, unspecified organism Status: Acute (3) Acute exacerbation of chronic obstructive pulmonary disease: Code(s): J44.1 - Chronic obstructive pulmonary disease with (acute) exacerbation Status: Acute (4) Mixed restrictive and obstructive lung disease: Code(s): J43.9 - Emphysema, unspecified; J98.4 - Other disorders of lung Status: Acute (5) Hypokalemia: Code(s): E87.6 - Hypokalemia Status: Resolved (6) Type 2 diabetes mellitus: Qualifiers: Diabetes mellitus complication detail: with nephropathy Diabetes mellitus complication status: with kidney complications Diabetes mellitus long-term insulin use: without technical planner use Qualified Code(s): E11.21 - Type 2 diabetes mellitus with diabetic nephropathy Code(s): E11.9 - Type 2 diabetes mellitus without complications Status: Inactive (7) Essential hypertension: Code(s): I10 - Essential (primary) hypertension Status: Acute (8) Paroxysmal atrial fibrillation: Code(s): I48.0 - Paroxysmal atrial fibrillation Status: Chronic (9) Chronic anticoagulation: Code(s): Z79.01 - nursing home (current) use of anticoagulants Status: Chronic (10) Rheumatoid arthritis: Qualifiers: Rheumatoid arthritis location: unspecified site Rheumatoid factor presence: with rheumatoid factor Qualified Code(s): M05.9 - Rheumatoid arthritis with rheumatoid factor, unspecified Code(s): M06.9 - Rheumatoid arthritis, unspecified Status: Acute Plan The patient presented to the emergency department after she was found to be hypoxic and tachycardic on her usual 4 L at a follow-up appointment as detailed in HPI. Labs, imaging, EKG, and all reports were personally reviewed. Chest CTA was negative for pulmonary embolism but did demonstrate patchy ground-glass opacities in the bilateral upper lobes and she has been started on antibiotics. She has also been started on scheduled bronchodilators. She does not have significant wheezing thus will hold on steroids. Sputum culture ordered. Potassium was replaced and will be monitored. Initiate sliding scale insulin, Accu-Cheks, and hypoglycemic protocol. She is currently in a sinus rhythm with frequent PVCs. Continue sotalol and rivaroxaban for stroke prophylaxis. No acute issues with regards to her rheumatoid arthritis. Hold leflunomide and metformin while in the hospital. The rest of her home medications will be reviewed and re sumed as appropriate. Findings and treatment plan were discussed with the patient. Questions were solicited and answered to satisfaction. The patient's medical management will be taken over by the hospitalist team in a.m. Quality VTE Prophylaxis VTE prophylaxis: pharmacologic ordered (on rivaroxaban) Hospitalist [facility] Advance Care Plan I have confirmed that the patient's Advanced Care Plan is present, code status is documented, or surrogate decision maker is listed in patient medical record.: Yes Medication Reconciliation I have utilized all available resources to obtain, update and review the p atients current medications (includes all prescriptions, OTC, herbals, cannabis, and nutritional supplements).: Yes
--- NOTE | 2024-12-21 21:25 | ADMGEN ---
This patient, Laura Clifford, was admitted to Medical Room 248-. Patient/family oriented to hospital policies and general routines including ID bracelet, bed and alarms, visiting hours, pain management, procedures, bathroom and other care routines, personal items, smoking policy, room service/diet, and visiting hours. Information on how to activate the Rapid Response Team has been discussed. Patient/Family are encouraged to report perceived risks to care and to ask questions if they do not understand what they are told or what they should do.
[2024-12-21 21:50] LABS: Glucose Point of Care 151 mg/dl (65-105)
[2024-12-21] MEDS: METOPROLOL TARTRATE 25 MG TABLET PO (22:35)
[2024-12-21] MEDS: SOTALOL HCL 80 MG TABLET PO (22:35)
[2024-12-21] MEDS: PRAMIPEXOLE 0.5 MG TABLET PO (22:35)
[2024-12-21 23:43] LABS: MRSA (PCR) NOT DETECTED (NOT DETECTE)
[2024-12-21] MEDS: LEFLUNOMIDE 20 MG TABLET PO (23:59)
[2024-12-22] VITALS (21 sets, daily range): BP systolic 132–145; BP diastolic 70–81; PULSE 93–116; RESP 16–22; TEMP 36.3–37.2; O2SAT 90–96
[2024-12-22] MEDS: IPRATROPIUM 0.5 MG/ALBUTEROL SULFATE 2.5 MG AMPUL.NEB 3 ML INHALATION ×4 (02:09→19:44)
[2024-12-22 05:46] LABS: Hematocrit 38.4 % (37.0-47.0); Hemoglobin 12.3 g/dL (12.0-15.0); Mean Corpuscular Hemoglobin 29.4 pg (26-34); Mean Corpuscular Volume 91.6 fl (80-100); Mean Platelet Volume 11.4 fl (7.4-10.4); Platelet Count Result 240 k/mm3 (150-375); Red Blood Count 4.19 M/mm3 (4.2-5.4); Red Cell Distribution Width 15.1 % (11.5-14.5); White Blood Count 7.3 K/mm3 (4.5-10.0)
[2024-12-22 06:02] LABS: Anion Gap 5 mmol/L (4-12); Blood Urea Nitrogen 13 mg/dL (7-17); Calcium 8.7 mg/dL (8.4-10.2); Carbon Dioxide 31 mmol/L (22-30); Chloride 101 mmol/L (98-107); Estimated CRCL calculation 74 ml/min; Estimated Glomerular Filt Rate > 60; Glucose 211 mg/dL (65-110); Magnesium 1.9 mg/dL (1.6-2.3); Potassium 3.9 mmol/L (3.4-5.0); Sodium 137 mmol/L (137-145)
[2024-12-22 07:55] LABS: Glucose Point of Care 170 mg/dl (65-105)
[2024-12-22] MEDS: PRAVASTATIN SODIUM 10 MG TABLET BY MOUTH (08:23)
[2024-12-22] MEDS: METOPROLOL TARTRATE 25 MG TABLET PO ×2 (08:23→20:01)
[2024-12-22] MEDS: guaiFENesin 12 HR 600 MG TABCR 1200 MG PO ×2 (08:23→20:01)
[2024-12-22] MEDS: DOXYCYCLINE HYCLATE 100 MG TABLET PO ×2 (08:24→20:01)
[2024-12-22] MEDS: PANTOPRAZOLE 40 MG TABLET PO (08:24)
[2024-12-22] MEDS: FUROSEMIDE 40 MG TABLET PO (08:24)
[2024-12-22] MEDS: SOTALOL HCL 80 MG TABLET PO ×2 (09:50→20:01)
[2024-12-22 12:10] LABS: Glucose Point of Care 220 mg/dl (65-105)
[2024-12-22] MEDS: INSULIN ASPART (*BKC) 100 UNITS/ML SUB-Q ×2 (12:14→20:30)
[2024-12-22 17:22] LABS: Glucose Point of Care 178 mg/dl (65-105)
[2024-12-22] MEDS: RIVAROXABAN 20 MG TABLET BY MOUTH (18:05)
[2024-12-22] MEDS: LEFLUNOMIDE 20 MG TABLET PO (20:00)
[2024-12-22] MEDS: PRAMIPEXOLE 0.5 MG TABLET PO (20:01)
[2024-12-22 21:13] LABS: Glucose Point of Care 218 mg/dl (65-105)
[2024-12-23] VITALS (8 sets, daily range): BP systolic 159; BP diastolic 88; PULSE 92–108; RESP 18–20; TEMP 36.5; O2SAT 92–96
[2024-12-23] MEDS: IPRATROPIUM 0.5 MG/ALBUTEROL SULFATE 2.5 MG AMPUL.NEB 3 ML INHALATION ×2 (02:06→07:42)
[2024-12-23 05:16] LABS: Basophils Absolute Auto 0.1 K/mm3 (0.0-0.1); Basophils Percent Auto 0.9 % (0.2-1.2); Eosinophils Absolute Auto 0.2 K/mm3 (0-0.3); Hematocrit 39.6 % (37.0-47.0); Hemoglobin 12.3 g/dL (12.0-15.0); Immature Granulocyte Absolute 0.08 K/mm3 (0.00-0.031); Immature Granulocyte Percent A 0.8 % (0-0.5); Lymphocytes Absolute Auto 1.32 K/mm3 (0.9-3.2); Lymphocytes Percent Auto 12.5 % (18.3-44.2); Mean Corpuscular HGB Conc 31.1 g/dl (32-36); Mean Corpuscular Hemoglobin 29.3 pg (26-34); Mean Corpuscular Volume 94.3 fl (80-100); Mean Platelet Volume 11.1 fl (7.4-10.4); Monocytes Percent Auto 9.4 % (2.6-8.5); Neutrophils Absolute Auto 7.8 K/mm3 (1.3-6.7); Neutrophils Percent Auto 74.4 % (45.5-73.1); Platelet Count Result 245 k/mm3 (150-375); Red Cell Distribution Width 15.3 % (11.5-14.5); White Blood Count 10.5 K/mm3 (4.5-10.0)
[2024-12-23 05:29] LABS: Anion Gap 5 mmol/L (4-12); Blood Urea Nitrogen 19 mg/dL (7-17); Calcium 8.7 mg/dL (8.4-10.2); Carbon Dioxide 32 mmol/L (22-30); Chloride 100 mmol/L (98-107); Estimated CRCL calculation 74 ml/min; Estimated Glomerular Filt Rate > 60; Glucose 135 mg/dL (65-110); Magnesium 1.7 mg/dL (1.6-2.3); Potassium 3.3 mmol/L (3.4-5.0); Sodium 137 mmol/L (137-145)
[2024-12-23 07:53] LABS: Glucose Point of Care 149 mg/dl (65-105)
[2024-12-23] MEDS: guaiFENesin 12 HR 600 MG TABCR 1200 MG PO (08:12)
[2024-12-23] MEDS: SOTALOL HCL 80 MG TABLET PO (08:13)
[2024-12-23] MEDS: PRAVASTATIN SODIUM 10 MG TABLET BY MOUTH (08:13)
[2024-12-23] MEDS: METOPROLOL TARTRATE 25 MG TABLET PO (08:13)
[2024-12-23] MEDS: PANTOPRAZOLE 40 MG TABLET PO (08:13)
[2024-12-23] MEDS: FUROSEMIDE 40 MG TABLET PO (08:13)
[2024-12-23] MEDS: DOXYCYCLINE HYCLATE 100 MG TABLET PO (08:13)
--- NOTE | 2024-12-23 11:18 | P.DS_ITS ---
DS: Admitting Diagnosis Discharge Date 12/23/2024 Admitting Diagnosis Pneumonia DS: Discharge Diagnosis Discharge Diagnosis (1) Acute on chronic hypoxic respiratory failure: Code(s): J96.21 - Acute and chronic respiratory failure with hypoxia Status: Acute (2) Pneumonia: Code(s): J18.9 - Pneumonia, unspecified organism Status: Acute (3) Acute exacerbation of chronic obstructive pulmonary disease: Code(s): J44.1 - Chronic obstructive pulmonary disease with (acute) exacerbation Status: Acute (4) Mixed restrictive and obstructive lung disease: Code(s): J43.9 - Emphysema, unspecified; J98.4 - Other disorders of lung Status: Acute (5) Hypokalemia: Code(s): E87.6 - Hypokalemia Status: Resolved (6) Type 2 diabetes mellitus: Qualifiers: Diabetes mellitus [facility] insulin use: without [facility] use Diabetes mellitus complication status: with kidney complications Diabetes mellitus complication detail: with nephropathy Qualified Code(s): E11.21 - Type 2 diabetes mellitus with diabetic nephropathy Code(s): E11.9 - Type 2 diabetes mellitus without complications Status: Inactive (7) Essential hypertension: Code(s): I10 - Essential (primary) hypertension Status: Acute (8) Paroxysmal atrial fibrillation: Code(s): I48.0 - Paroxysmal atrial fibrillation Status: Chronic (9) Chronic anticoagulation: Code(s): Z79.01 - field support rep (current) use of anticoagulants Status: Chronic (10) Rheumatoid arthritis: Qualifiers: Rheumatoid arthritis location: unspecified site Rheumatoid factor presence: with rheumatoid factor Qualified Code(s): M05.9 - Rheumatoid art hritis with rheumatoid factor, unspecified Code(s): M06.9 - Rheumatoid arthritis, unspecified Status: Acute Plan The patient presented to the emergency department after she was found to be hypoxic and tachycardic on her usual 4 L at a follow-up appointment as detailed in HPI. Labs, imaging, EKG, and all reports were personally reviewed. Chest CTA was negative for pulmonary embolism but did demonstrate patchy ground-glass opacities in the bilateral upper lobes and she has been started on antibiotics. She has also been started on scheduled bronchodilators. She does not have significant wheezing thus will hold on steroids. Sputum culture ordered. Potassium was replaced and will be monitored. Initiate sliding scale insulin, Accu-Cheks, and hypoglycemic protocol. She is currently in a sinus rhythm with frequent PVCs. Continue sotalol and rivaroxaban for stroke prophylaxis. No acute issues with regards to her rheumatoid arthritis. Hold leflunomide and metformin while in the hospital. The rest of her home medications will be reviewed and resumed as appropriate. Findings and treatment plan were discussed with the patient. Questions were solicited and answered to satisfaction. The patient's medical management will be taken over by the hospitalist team in a.m. DS: Summary Hospital Course Reason for hospitalization: Pneumonia Hospital Course: 74 years old female was admitted with complaints of shortness of breath. Patient was found to be in the hospital feeling. Patient also had pneumonia. Patient was given IV antibiotics. Patient home medications were continued. After few days of treatment patient is feeling better. Patient was discharged home in stable condition. Follow up scheduled. Status at Discharge Cognitive/behavioral status at discharge: Stable Time Spent with Patient Time attestation: Total time spent providing and/or coordinating discharge services: 30 minutes Exam Narrative: General:?Nontoxic-appearing female sitting up in bed watching television in no distress. Weight: 81.5 kg. BMI: 33.9. HEENT:??PERRL, EOMI. Sclera anicteric. Moist mucous membranes. Neck:??Supple. No lymphadenopathy or JVD. Respiratory:?Respirations are nonlabored and she appears in no acute respiratory distress. Lung sounds are diminished throughout with rare expiratory wheezes. Cardiovascular:?Irregularly irregular rate and rhythm. Soft murmur at the apex. Gastrointestinal:??Abdomen is soft, nontender, and nondistended with positive bowel sounds. Skin:??Warm and dry.?Generalized pallor. Extremities:??No cyanosis or clubbing. 1+ lower extremity bilaterally which she states is chronic. Radial and pedal pulses intact. No palpable knots or cords. Neurological:??Alert.? Cranial nerves 2-12 are grossly intact.? No gross focal deficits to casual conversation. Psychiatric:??Pleasant and cooperative with appropriate mood and affect. DS: Data Data Completed and Pending Labs on day of discharge: Labs from last 24 hours 12/23/24 12/23/24 12/22/24 07:50 05:04 19:42 WBC 10.5 H RBC 4.20 Hgb 12.3 Hct 39.6 MCV 94.3 MCH 29.3 MCHC 31.1 L RDW 15.3 H Plt Count 245 MPV 11.1 H Immature Gran % (Auto) 0.8 H Neut % (Auto) 74.4 H Lymph % (Auto) 12.5 L Blount % (Auto) 9.4 H Eos % (Auto) 2.0 Baso % (Auto) 0.9 Lymph # (Auto) 1.32 Blount # (Auto) 1.0 H Eos # (Auto) 0.2 Baso # (Auto) 0.1 Abs Immat Gran (auto) 0.08 H Absolute Neuts (auto) 7.8 H Absolute Nucleated RBC 0.000 Nucleated RBC % 0.0 Sodium 137 Potassium 3.3 L Chloride 100 Carbon Dioxide 32 H Anion Gap 5 BUN 19 H Creatinine 0.57 L Estim Creat Clear Calc 74 Estimated GFR > 60 Glucose 135 H POC Capillary Glucose 149 H 218 H Calcium 8.7 Magnesium 1.7 Mycoplasma pneumon IgM Pending 12/22/24 12/22/24 17:07 11:52 WBC RBC Hgb Hct MCV MCH MCHC RDW Plt Count MPV Immature Gran % (Auto) Neut % (Auto) Lymph % (Auto) Blount % (Auto) Eos % (Auto) Baso % (Auto) Lymph # (Auto) Blount # (Auto) Eos # (Auto) Baso # (Auto) Abs Immat Gran (auto) Absolute Neuts (auto) Absolute Nucleated RBC Nucleated RBC % Sodium Potassium Chloride Carbon Dioxide Anion Gap BUN Creatinine Estim Creat Clear Calc Estimated GFR Glucose POC Capillary Glucose 178 H 220 H Calcium Magnesium Mycoplasma pneumon IgM Discharge Plan Discharge Attending physician on discharge: Charles Gregg Discharging Clinician: Charles Gregg Patient Disposition: Home Activity: as tolerated Diet: as tolerated Patient Instructions: Antibiotic Form, Rivaroxaban (By mouth) Patient Language: Slovenian Stand Alone Forms: General Discharge Information Follow-up/Referrals: Parminder Rojas MD [Primary Care Provider] - Discharge Medications: New doxycycline hyclate 100 mg Tablet 100 mg PO Q12HR Qty: 14 0RF potassium chloride [K-Tab] 20 mEq tablet extended release 20 meq PO DAILY Qty: 30 0RF Continued leflunomide 20 mg tablet 20 mg PO HS Fish Oil 100-160-1,000 mg capsule 2 cap PO BID Rx Instructions: two pills morning, two pills hs Repatha SureClick 140 mg/mL pen injector 140 mg subcut .every 2 weeks Qty: 2 11RF nystatin 100,000 unit/mL suspension 1 ml PO QID PRN (Reason: Pain) Rx Instructions: swish and swallow to each side of mouth metformin 500 mg tablet extended release 24 hr 1,000 mg PO DAILY Rx Instructions: afternoon tirzepatide 5 mg/0.5 mL pen injector 5 mg subcut WEEKLY Rx Instructions: thursday furosemide 40 mg tablet 40 mg PO DAILY pantoprazole 40 mg tablet,delayed release (DR/EC) 40 mg PO QAM Qty: 90 3RF pravastatin 10 mg tablet See Rx Instructions .ROUTE .COMPLEX Qty: 90 2RF Dose Instruction: TAKE 1 TABLET BY MOUTH EVERY DAY Rx Instructions: TAKE 1 TABLET BY MOUTH EVERY DAY arformoterol 15 mcg/2 mL solution for nebulization See Rx Instructions .ROUTE .COMPLEX Qty: 30 11RF Dose Instruction: USE 1 VIAL IN NEBULIZER DAILY Rx Instructions: USE 1 VIAL IN NEBULIZER DAILY metoprolol tartrate 25 mg tablet 25 mg PO BID Qty: 60 5RF Xarelto 20 mg tablet See Rx Instructions .ROUTE .COMPLEX Qty: 30 5RF Dose Instruction: TAKE 1 TABLET BY MOUTH EVERY DAY MUST ADMINISTER WITH EVENING MEAL Rx Instructions: TAKE 1 TABLET BY MOUTH EVERY DAY MUST ADMINISTER WITH EVENING MEAL pramipexole 0.5 mg tablet 0.5 mg PO HS Qty: 90 1RF sotalol 80 mg tablet See Rx Instructions .ROUTE .COMPLEX Qty: 180 2RF Dose Instruction: TAKE 1 TABLET BY MOUTH TWICE A DAY Rx Instructions: TAKE 1 TABLET BY MOUTH TWICE A DAY Discontinued diphenoxylate-atropine [Lomotil] 2.5-0.025 mg tablet 1 tablet PO TID PRN (Reason: Diarrhea) Qty: 60 0RF Date of admission: 12/21/24 19:16 Primary Care Provider: Parminder Rojas Admitting Provider: Jose Juan Ivory Attending physician on admission: Jose Juan Ivory Condition: Stable Quality VTE Prophylaxis VTE prophylaxis: pharmacologic ordered (on rivaroxaban)
[2024-12-23] MEDS: ACETAMINOPHEN 325 MG TABLET 650 MG PO (11:29)
[2024-12-23] MEDS: POTASSIUM CHLORIDE 20 MEQ ER TABLET 40 MEQ PO (12:00)
[2024-12-23 12:08] LABS: Glucose Point of Care 187 mg/dl (65-105)
[2024-12-25 17:38] LABS: Pneumococcal Antigen Urine NOT DETECTED
[2024-12-26 17:57] LABS: Mycoplasma IgM Antibody Titer 69 U/mL
== END 2024-12-23 12:55 | disposition home or self-care (01) | DRG 193 ==
LOC: ANHED 18:31 → ANH2MED 20:56
PROVIDERS: Emergency Medicine; General Practice; Physician Assistant; Admitting Provider Hospitalist; Emergency Provider Student in an Organized Health Care Education/Training Program; PCP Family Medicine; Visit Provider Internal Medicine
DX: J18.9 Pneumonia, unspecified organism (principal); J96.21 Acute and chronic respiratory failure with hypoxia; J44.0 Chronic obstructive pulmonary disease with (acute) lower respiratory infection; J44.1 Chronic obstructive pulmonary disease with (acute) exacerbation; I48.20 Chronic atrial fibrillation, unspecified; E87.6 Hypokalemia; M05.9 Rheumatoid arthritis with rheumatoid factor, unspecified; I10 Essential (primary) hypertension; E11.21 Type 2 diabetes mellitus with diabetic nephropathy; D50.9 Iron deficiency anemia, unspecified; I25.10 Atherosclerotic heart disease of native coronary artery without angina pectoris; G25.81 Restless legs syndrome; E78.5 Hyperlipidemia, unspecified; K21.9 Gastro-esophageal reflux disease without esophagitis; I49.3 Ventricular premature depolarization; Z79.01 Long term (current) use of anticoagulants; Z99.81 Dependence on supplemental oxygen; Z95.1 Presence of aortocoronary bypass graft; Z86.73 Personal history of transient ischemic attack (TIA), and cerebral infarction without residual deficits; Z86.16 Personal history of COVID-19; Z95.5 Presence of coronary angioplasty implant and graft; Z96.653 Presence of artificial knee joint, bilateral; Z98.42 Cataract extraction status, left eye
CPT/HCPCS: 36415; 71046; 71275; 80048; 80053; 82948; 83735; 84484; 85025; 85027; 86738; 87637; 87641; 87899; 93005; 93970; 94640; 96365; 96367; 96368; 96375; 99291; A9270; J0456; J0696; J1815; J2919; J3475; J3480; Q9967

== ENCOUNTER 2025-03-17 09:27 | Outpatient (CLI) | payer OTHER, SELFPAY ==
--- OUTSIDE RECORDS SUMMARY | 2025-03-17 09:34 | XMS_ITS | Referral Summary ---
Author Organization [facility] Address [address] [place] [address] Care Team Providers Care Youth Director Name Role Phone Parminder Rojas MD Primary Care Provider [phone] Yannick Guevara MD Unavailable [phone] Ayde Peña MD Unavailable [phone] Encounters Date Type Department Care Team Description 03/14/2025 7:30 PM CDT - 03/14/2025 11:59 PM CDT Hospital Encounter [address] [address] Discharge Disposition: Discharge to home or self care 03/02/2025 4:38 PM CDT - 03/02/2025 11:59 PM CDT Hospital Encounter [address] [address] Discharge Disposition: Discharge to home or self care from Last 3 Months Allergies Active Allergy [...] on file 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 Gender Identity Not on file Sexual Orientation Not on file Last Filed Vital Signs Vital Sign Reading Time Taken Comments Blood Pressure 161/74 08/26/2024 1:13 PM REDUCING MACHINE OPERATOR Pulse 63 08/26/2024 1:13 PM REDUCING MACHINE OPERATOR Temperature 36.1 C (96.9 F) 08/06/2021 1:42 PM REDUCING MACHINE OPERATOR Respiratory Rate 16 07/20/2024 9:06 AM REDUCING MACHINE OPERATOR Oxygen Saturation 92% 07/20/2024 9:06 AM REDUCING MACHINE OPERATOR Inhaled Oxygen Concentration - - Weight 81.6 kg (180 lb) 09/14/2024 12:16 PM REDUCING MACHINE OPERATOR Height 154.9 cm (5' 1) 09/14/2024 12:16 PM REDUCING MACHINE OPERATOR Body Mass Index 34.01 09/14/2024 12:16 PM REDUCING MACHINE OPERATOR Plan of Treatment Not on file Procedures Procedure Name Priority Date/Time Associated Diagnosis Comments HEPATIC FUNCTION PANEL Routine 03/14/2025 1:36 PM CDT EGFR Routine 03/02/2025 11:04 AM CDT DIFFERENTIAL AUTO Routine 03/02/2025 11: 04 AM CDT CREATININE Routine 03/02/2025 11:04 AM CDT HEPATIC FUNCTION PANEL Routine 03/02/2025 11:04 AM CDT CBC WITH AUTO DIFFERENTIAL Routine 03/02/2025 11:04 AM CDT from Last 3 Months Results * (ABNORMAL) Hepatic function panel (03/14/2025 1:36 PM CDT) Bilirubin, total 0.6 0.1 - 1.2 mg/dL Bilirubin, direct 0.3 0.1 - 0.3 mg/dL [facility] Protein, pl 6.6 6.5 - 8.5 g/dL [facility] Albumin 3.8 3.5 - 5.0 g/dL [facility] Alk phos 390(H) 40 - 130 Units/L [facility] ALT 78(H) 7 - 45 Units/L [facility] AST 74(H) 10 - 45 Units/L [facility] Blood 03/14/2025 1:36 PM CDT 03/14/2025 8:52 PM CDT Filippo Carpenter MD LAB BLOOD ORDERABLES Fin al Result Performing Organization Address [facility]/ZIP Co de Phone Number [facility] [address] Department [place] [address] * eGFR (03/02/2025 11:04 AM CDT) Pathologist [facility] eGFR >90 >=60 mL/min/1. 73 m2 Comment: [...] interpretive data was last reviewed 2021. Blood 03/02/2025 11:0 4 AM CDT 03/02/2025 7:08 PM CDT Filippo Carpenter MD LAB BLOOD ORDERABLES Fin al Result Performing Organization Address City/[facility]/ZIP Co de Phone Number [facility] [address] Department of [facility] [place], [place] [id number] * (ABNORMAL) Differential, auto (03/02/2025 11:04 AM CDT) Pathologist [facility] Department Neutrophil abs 4.90 1.50 - 6.50 K/cumm Imm gran abs 0.05 0.00 - 0.10 K/cumm [facility] Lymphocyte abs 1.39 0.80 - 3.30 K/cumm [facility] Monocyte abs 1.04(H) 0.20 - 0.80 K/cumm [facility] Eosinophil abs 0.45 0.00 - 0.50 K/cumm [facility] Basophil abs 0.10 0.00 - 0.10 K/cumm [facility] Neutrophil pct 61.8 % [facility] Comment: Interpretive Data Percent cell count reference ranges are not reported, since discordance with absolute values may lead to misinterpretation of CBC data. Current Interpretive Data was last revised on 2017. Imm gran pct 0.6 % [facility] Comment: Interpretive Data Percent cell count reference ranges are not reported, since discordance with absolute values may lead to misinterpretation of CBC data. Current Interpretive Data was last revised on 2017. Lymphocyte pct 17.5 % [facility] Comment: Interpretive Data Percent cell count reference ranges are not reported, since discordance with absolute values may lead to misinterpretation of CBC data. Current Interpretive Data was last revised on 2017. Monocyte pct 13.1 % [facility] Comment: Interpretive Data Percent cell count reference ranges are not reported, since discordance with absolute values may lead to misinterpretation of CBC data. Current Interpretive Data was last revised on 2017. Eosinophil pct 5.7 % [facility] Comment: Interpretive Data Percent cell count reference ranges are not reported, since discordance with absolute values may lead to misinterpretation of CBC data. Current Interpretive Data was last revised on 2017. Basophil pct 1.3 % [facility] Comment: Interpretive Data Percent cell count reference ranges are not reported, since discordance with absolute values may lead to misinterpretation of CBC data. Current Interpretive Data was last revised on 2017. Blood 03/02/2025 11:0 4 AM CDT 03/02/2025 6:14 PM CDT us Filippo Carpenter MD LAB BLOOD ORDERABLES Fin al Result [facility] [address] Department [place] [address] * (ABNORMAL) CBC with auto differential (03/02/2025 11:04 AM CDT) Pathologist [facility] WBC 7.93 3.80 - 9.90 K/cumm Hgb 12.3 11.9 - 15.5 g/dL [facility] Hct 39.5 35.6 - 45.5 % [facility] Plt 268 150 - 400 K/cumm [facility] MPV 12.3 9.1 - 12.3 fL [facility] RBC 4.28 3.90 - 5.20 M/cumm [facility] MCV 92.3 81.3 - 96.4 fL [facility] MCH 28.7 27.1 - 33.3 pg [facility] MCHC 31.1(L) 32.3 - 35.7 g/dL [facility] RDW CV 16.5(H) 11.1 - 14.9 % [facility] RDW SD 53.5(H) 35.7 - 48.1 fL [facility] NRBC abs 0.00 0.00 - 0.01 K/cumm [facility] Blood 03/02/2025 11:0 4 AM CDT 03/02/2025 6:14 PM CDT us Filippo Carpenter MD LAB BLOOD ORDERABLES Fin al Result Performing Organization Address [facility] Co de Phone Number [facility] [address] Department [place] [address] * Creatinine (03/02/2025 11:04 AM CDT) [facility] Creatinine 0.69 0.60 - 1.10 mg/dL Blood 03/02/2025 11:0 4 AM CDT 03/02/2025 6:14 PM CDT Filippo Carpenter MD LAB BLOOD ORDERABLES Fin al Result Performing Organization Address City/[facility]/ZIP Co de Phone Number [facility] [address] [place] [address] * (ABNORMAL) Hepatic function panel (03/02/2025 11:04 AM CDT) Bilirubin, total 0.7 0.1 - 1.2 mg/dL Bilirubin, direct 0.4(H) 0.1 - 0.3 mg/dL [facility] Protein, pl 6.5 6.5 - 8.5 g/dL [facility] Albumin 3.5 3.5 - 5.0 g/dL [facility] Alk phos 357(H) 40 - 130 Units/L [facility] ALT 88(H) 7 - 45 Units/L [facility] AST 78(H) 10 - 45 Units/L [facility] Blood 03/02/2025 11:0 4 AM CDT 03/02/2025 6:14 PM CDT us Filippo Carpenter MD LAB BLOOD ORDERABLES Fin al Result [facility] [address] [place] [address] from Last 3 Months Insurance [employer] P[employer] Care Teams Youth Director Relationship Specialty Start Date End Date Parminder Rojas MD PCP - General 01/19/14 Yannick Guevara MD [address] [facility] [place] [phone] [place] [address] Surgeon Colon and Rectal Surgery 02/07/21 Ayde Peña MD [address] [facility] [address] [place] [address] Referring Physician Family Medicine 02/07/21
--- OUTSIDE RECORDS SUMMARY | 2025-03-17 09:34 | XMS_ITS | Encounter Summary ---
Author Organization [facility] Address [address] [place] [address] Care Team Providers Care Head Strength And Conditioning Coach Name Role Phone Filippo Carpenter MD Unavailable [phone] Encounter Details Date Type Department Care Team (Late st Contact Info) Description 01/27/2019 Lab Requisition [facility] [address] [facility] [place] [address] Bettina Espino DO [address] [facility] [address] [place] [address] Social History Tobacco Use Types Packs/Day Years Used Date Smoking Tobacco: Never Alcohol Use Standard Drinks/Week Comments No 0 (1 standard drink = 0.6 oz pur e alcohol) Comments No Sex and Gender Information Value Date Recorded Sex Assigned at Not on file 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 Gender Identity Not on file Sexual Orientation Not on file documented as of this encounter Plan of Treatment Not on file documented as of this encounter Procedures Procedure Name Priority Date/Time Associated Diagnosis Comments DERMATOPATHOLOGY Routine 01/26/2019 12:0 0 AM CDT documented in this encounter Results * DERMATOPATHOLOGY (01/26/2019 12:00 AM CDT) Case Report Dermatopathology Report Case: [id number] Authorizing Provider: Bettina Espino DO Collected: 01/26/2019 12:00 AM Pathologist: Maura James MD Received: 01/27/2019 10:42 AM Specimen: Skin, left chest 12:24 PM CDT DERMATOPATHOLOGY LABORATORY Final Diagnosis Specimen A. SKIN, left chest: VERRUCA VULGARIS (B07.8) 12:24 PM CDT DERMATOPATHOLOGY LABORATORY at 1224 CDT Clinical History R/O ISK vs VV R/O SCC, non-healing. 12:24 PM CDT DERMATOPATHOLOGY LABORATORY Gross Description Specimen A: Received is one formalin filled container labeled with the patient's name and designated left chest. The specimen consists of a shave measuring [id number]. Jar 0. 12:24 PM CDT DERMATOPATHOLOGY LABORATORY [...] determined by the Dermatopathology Laboratory at [facility], directed by Dr. Krys Villagran. These tests need not be, and therefore are not, approved by the [place] Food and Drug Administration. The tests are used for clinical purposes. Billing Codes Specimen Charges Stain Charges 31332 1 12:24 PM CDT DERMATOPATHOLOGY LABORATORY Embedded Images 12:24 PM CDT DERMATOPATHOLOGY LABORATORY Pathology/Cytolog y TISSUE SPECIMEN FROM SKIN / Unknown 01/26/2019 01/27/2019 10:42 AM CDT Bettina Espino DO LAB - PATHOLOGY/CYTOLOGY ORDERABLES Final Result DERMATOPATHOLOGY LABORATORY [facility] - Department of Dermatology [address] [place] [address], 5th Floor Lab [address] [phone] documented in this encounter Visit Diagnoses Not on filedocumented in this encounter Care Teams Head Strength And Conditioning Coach Relationship Specialty Start Date End Date Filippo Carpenter MD Physician Rheumatology 08/10/11 documented as of this encounter
--- OUTSIDE RECORDS SUMMARY | 2025-03-17 09:34 | XMS_ITS | Clinical Summary ---
Author Organization [facility] Address [address] [place] [address] Care Team Providers Care Point Of Care Technician Name Role Phone Parminder Rojas MD Primary Care Provider [phone] Allergies Active Allergy Reactions Criticality Noted Date [...] 10:11 AM CDT Height 160 cm (5' 3) 02/18/2022 10:11 AM CDT Body Mass Index [...] (2 of 2 - PPSV23) 08/20/2021 08/20/2020 COVID-19 Vaccine (3 - 2023-2 5 season) 2024 12/20/2020, 11/29/2020 INFLUENZA VACCINE (#1) 2025 0, 06/08/2018, 06/22/2017, Additional history exists RSV VACCINE (60+ or ) (1 - 1-dose 75+ series) 02/12/[address] [place] [address] [employer] PPO MCR Care Teams Point Of Care Technician Relationship Specialty Start Date End Date Parminder Rojas MD [address] [place] [id number] PCP - General Family Practice 02/04/22
--- OUTSIDE RECORDS SUMMARY | 2025-03-17 09:34 | XMS_ITS | Patient Health Record ---
Author Organization [facility] almita Address [address] [place] [address] Care Team Providers Care Sales Service Manager Name Role Phone Sammie RONDON, Parminder Primary Care Provider Unavail able Filippo Jenkins Unavailable [phone] Allergies Allergen (clinical drug ingredient) Drug/Non Drug Allergy documented on EMR Reaction Allergy Type Onset Date Status Amoxicillin ER Unknown Drug Allergy Ac tive codeine Codeine Unknown Drug Allergy 11/05/2004 Active Results Component Value Reference Range Notes CBC w auto diff Reviewed date:05/25/2024 06:19:32 AM Interpretation: Performing Lab:[facility] , [facility]5 [facility]. [facility] [address] Notes/Report: WBC 7.1 3.8-9.9 K/cumm Hgb 13.4 11.9-15.5 g/dL Hct 44.7 35.6-45.5 % Platelet Ct 271 150-400 K/cumm MPV 12.6 9.1-12.3 fL RBC 4.84 3.90-5.20 M/cumm MCV 92.4 81.3-96.4 fL MCH 27.7 27.1-33.3 pg MCHC 30.0 32.3-35.7 g/dL RDW CV 16.7 11.1-14.9 % RDW SD 55.3 35.7-48.1 fL NRBC Abs Auto 0.00 0.00-0.01 K/cumm Creatinine Reviewed date:05/25/2024 06:16:23 AM Interpretation: Performing Lab:[facility] , [address] [facility]. [facility] [address] Notes/Report: Creatinine 0.80 0.60-1.10 mg/dL Hep Func Panel Reviewed date:05/25/2024 06:15:44 AM Interpretation: Performing Lab:[facility] , [address] [place] [address] Notes/Report: Total Bilirubin 0.5 0.1-1.2 mg/dL Bilirubin, Direct 0.2 0.1-0.3 mg/dL Plasma Total Protein 6.8 6.5-8.5 g/dL Albumin 4.1 3.5-5.0 g/dL Alkaline Phosphatase 58 40-130 Units/L ALT 11 7-45 Units/L AST 16 10-45 Units/L Differential Automated Reviewed date:05/25/2024 06:17:21 AM Interpretation: Performing Lab:[facility] , [address] [place] [address]. [place] [address] Notes/Report: Neut Abs 4.7 1.5-6.5 K/cumm ImmGran Abs 0.0 0.0-0.1 K/cumm Lymphocyte Abs 1.2 0.8-3.3 K/cumm Barber Abs 0.8 0.2-0.8 K/cumm Eos Abs 0.2 [...] Interpretive Data was last revised on 2017. Barber Pct 11.6 Interpretive Data Percent cell count [...] last revised on 2017. Hep Func Panel (Not yet revi ewed by provider) Interpretation: Performing Lab:[facility] , [address] [place] [address]. [facility] [address] Notes/Report: Total Bilirubin 0.6 0.1-1.2 mg/dL Bilirubin, Direct 0.3 0.1-0.3 mg/dL Plasma Total Protein 6.6 6.5-8.5 g/dL Albumin 3.8 3.5-5.0 g/dL Alkaline Phosphatase 390 40-130 Units/L ALT 78 7-45 Units/L AST 74 10-45 Units/L eGFR Reviewed date:05/25/2024 06:17:27 AM Interpretation: Performing Lab:[facility] , [address] [place] [address]. [place] [address] Notes/Report: eGFR 78 >=60 mL/min/1.73 m2 Interpretive [...] Current interpretive data was last reviewed 2021. eGFR Reviewed date:03/04/2025 09:01:05 AM Interpretation: Performing Lab:[facility] , [address] [place] [address]. [facility] [address] Notes/Report: eGFR >90 >=60 mL/min/1.73 m2 Interpretive [...] was last reviewed 2021. Differential Automated Reviewed date:03/04/2025 09:00:49 AM Interpretation: Performing Lab:[facility] , [facility]5 [facility]. [facility] [address] Notes/Report: Neut Abs 4.90 1.50-6.50 K/cumm ImmGran Abs 0.05 0.00-0.10 K/cumm Lymphocyte Abs 1.39 0.80-3.30 K/cumm Barber Abs 1.04 0.20-0.80 K/cumm Eos Abs 0.45 0.00-0.50 K/cumm Baso Abs 0.10 0.00-0.10 K/cumm Neut Pct 61.8 Interpretive Data Percent cell count reference ranges are not reported, since discordance with absolute values may lead to misinterpretation of CBC data. Current Interpretive Data was last revised on 2017. ImmGran Pct 0.6 Interpretive Data Percent cell count reference ranges are not reported, since discordance with absolute values may lead to misinterpretation of CBC data. Current Interpretive Data was last revised on 2017. Lymph Pct 17.5 Interpretive Data Percent cell count reference ranges are not reported, since discordance with absolute values may lead to misinterpretation of CBC data. Current Interpretive Data was last revised on 2017. Barber Pct 13.1 Interpretive Data Percent cell count reference ranges are not reported, since discordance with absolute values may lead to misinterpretation of CBC data. Current Interpretive Data was last revised on 2017. Eos Pct 5.7 Interpretive Data Percent cell count reference ranges are not reported, since discordance with absolute values may lead to misinterpretation of CBC data. Current Interpretive Data was last revised on 2017. Baso Pct 1.3 Interpretive Data Percent cell count reference ranges are not reported, since discordance with absolute values may lead to misinterpretation of CBC data. Current Interpretive Data was last revised on 2017. eGFR Reviewed date:12/01/2024 12:56:10 PM Interpretation: Performing Lab:[facility] , [address] [facility]. [facility] [address] Notes/Report: eGFR 86 >=60 mL/min/1.73 m2 Interpretive Data Reference Interval [...] was last reviewed 2021. Differential Automated Reviewed date:12/01/2024 12:56:18 PM Interpretation: Performing Lab:[facility] , [address] [facility]. [place] [address] Notes/Report: Neut Abs 4.61 1.50-6.50 K/cumm ImmGran Abs 0.05 0.00-0.10 K/cumm Lymphocyte Abs 1.45 0.80-3.30 K/cumm Barber Abs 0.88 0.20-0.80 K/cumm Eos Abs 0.26 [...] Interpretive Data was last revised on 2017. Barber Pct 12.0 Interpretive Data Percent cell count [...] eGFR Reviewed date:09/03/2024 03:29:31 PM Interpretation: Performing Lab:[facility] , [address] [place] [address]. [facility] [address] Notes/Report: eGFR >90 >=60 mL/min/1.73 m2 Interpretive [...] Automated Reviewed date:09/03/2024 03:29:31 PM Interpretation: Performing Lab:[facility] , [facility]5 [facility]. [facility] [address] Notes/Report: Neut Abs 4.5 1.5-6.5 K/cumm ImmGran Abs 0.0 0.0-0.1 K/cumm Lymphocyte Abs 1.3 0.8-3.3 K/cumm Barber Abs 0.8 0.2-0.8 K/cumm Eos Abs 0.1 [...] Interpretive Data was last revised on 2017. Barber Pct 12.1 Interpretive Data Percent cell count [...] revised on 2017. Hep Func Panel Reviewed date:12/01/2024 12:55:55 PM Interpretation: Performing Lab:[facility] , [address] [place] [address] Notes/Report: Total Bilirubin 0.4 0.1-1.2 mg/dL Bilirubin, Direct 0.2 0.1-0.3 mg/dL Plasma Total Protein 6.4 6.5-8.5 g/dL Albumin 3.6 3.5-5.0 g/dL Alkaline Phosphatase 53 40-130 Units/L ALT 14 7-45 Units/L AST 17 10-45 Units/L Creatinine Reviewed date:12/01/2024 12:56:00 PM Interpretation: Performing Lab:[facility] , [address] [place] [address]. [facility] [address] Notes/Report: Creatinine 0.74 0.60-1.10 mg/dL CBC w auto diff Reviewed date:12/01/2024 12:56:05 PM Interpretation: Performing Lab:[facility] , [address] [place] [address]. [facility] [address] Notes/Report: WBC 7.33 3.80-9.90 K/cumm Hgb 13.0 11.9-15.5 g/dL Hct 40.6 35.6-45.5 % Platelet Ct 273 150-400 K/cumm MPV 11.9 9.1-12.3 fL RBC 4.41 3.90-5.20 M/cumm MCV 92.1 81.3-96.4 fL MCH 29.5 27.1-33.3 pg MCHC 32.0 32.3-35.7 g/dL RDW CV 14.8 11.1-14.9 % RDW SD 48.4 35.7-48.1 fL NRBC Abs Auto 0.00 0.00-0.01 K/cumm Hep Func Panel Reviewed date:03/07/2025 04:43:01 PM Interpretation: Performing Lab:[facility] , [address] [place] [address]. [facility] [address] Notes/Report: Total Bilirubin 0.7 0.1-1.2 mg/dL Bilirubin, Direct 0.4 0.1-0.3 mg/dL Plasma Total Protein 6.5 6.5-8.5 g/dL Albumin 3.5 3.5-5.0 g/dL Alkaline Phosphatase 357 40-130 Units/L ALT 88 7-45 Units/L AST 78 10-45 Units/L Creatinine Reviewed date:03/04/2025 08:59:24 AM Interpretation: Performing Lab:[facility] , [address] [place] [address]. [facility] [address] Notes/Report: Creatinine 0.69 0.60-1.10 mg/dL CBC w auto diff Reviewed date:03/06/2025 08:07:52 AM Interpretation: Performing Lab:[facility] , [address] [place] [address]. [facility] [address] Notes/Report: WBC 7.93 3.80-9.90 K/cumm Hgb 12.3 11.9-15.5 g/dL Hct 39.5 35.6-45.5 % Platelet Ct 268 150-400 K/cumm MPV 12.3 9.1-12.3 fL RBC 4.28 3.90-5.20 M/cumm MCV 92.3 81.3-96.4 fL MCH 28.7 27.1-33.3 pg MCHC 31.1 32.3-35.7 g/dL RDW CV 16.5 11.1-14.9 % RDW SD 53.5 35.7-48.1 fL NRBC Abs Auto 0.00 0.00-0.01 K/cumm Hep Func Panel Reviewed date:09/03/2024 03:29:31 PM Interpretation: Performing Lab:[facility] , [address] [place] [address]. [facility] [address] Notes/Report: Total Bilirubin 0.4 0.1-1.2 mg/dL Bilirubin, Direct 0.2 0.1-0.3 mg/dL Plasma Total Protein 6.2 6.5-8.5 g/dL Albumin 4.1 3.5-5.0 g/dL Alkaline Phosphatase 50 40-130 Units/L ALT 16 7-45 Units/L AST 18 10-45 Units/L Creatinine Reviewed date:09/03/2024 03:29:31 PM Interpretation: Performing Lab:[facility] , [facility]5 [facility]. [place] [address] Notes/Report: Creatinine 0.68 0.60-1.10 mg/dL CBC w auto diff Reviewed date:09/03/2024 03:29:31 PM Interpretation: Performing Lab:[facility] , [facility]5 [facility]. [place] [address] Notes/Report: WBC 6.8 3.8-9.9 K/cumm Hgb 13.9 11.9-15.5 g/dL Hct 43.6 35.6-45.5 % Platelet Ct 259 150-400 K/cumm MPV 12.1 9.1-12.3 fL RBC 4.61 3.90-5.20 M/cumm MCV 94.6 81.3-96.4 fL MCH 30.2 27.1-33.3 pg MCHC 31.9 32.3-35.7 g/dL RDW CV 16.0 11.1-14.9 % RDW SD 54.6 35.7-48.1 fL NRBC Abs Auto 0.00 0.00-0.01 K/cumm Reason For [...] same time each day Inhalation 1 Active Leflunomide 20 MG TAKE 1 TABLET BY KEITH TH EVERY DAY; Duration: 90 Active Mounjaro 2.5 MG/0.5ML INJECT 2.5 MG UNDE R THE SKIN WEEKLY FOR 4 WEEKS Subcutaneous; Duration: 28 Days Active Vitamin D (Ergocalciferol) 99353 UNIT Oral Active Sotalol HCl 80 MG TAKE 1 TABLET BY ORA L ROUTE 2 TIMES EVERY DAY Oral 01/25/2019 Active Pramipexole Dihydrochloride 0.5 MG take 1 tablet (0.5 mg) by oral route 2-3 hours before bedtime Oral 0 Active Xarelto 20 MG take 1 tablet (20 mg ) by oral route once daily with the evening meal Oral 1 Active Metoprolol Tartrate 25 MG take 1 tablet (25 mg) by oral route 2 times per day Oral 2 Active Praluent 150 MG/ML inject 1 milliliter (150 mg) by subcutaneous route every 2 weeks in the abdomen, thigh, or upper arm rotating injection sites Subcutaneous [id number] Not-Taking Pravastatin Sodium 10 MG take 1 tablet ( 10 mg) by oral route once daily at bedtime Oral 1 Active Proventil HFA 108 (90 Base) MCG/ACT inhale 1 puff (90 mcg) by inhalation route every 6 hours as needed Inhalation 4 Not-Taking Meclizine HCl 25 MG take 1 tablet (25 mg ) by oral route once daily Oral 1 Active Potassium Chloride ER 20 MEQ take 1 tablet (20 meq) by oral route 2 times per day with food Oral 2 Not-Taking Repatha 140 MG/ML 1 mL Subcutaneous; Duration: 30 day(s) Active Social History Tobacco Use: Social History Observation Description Date Details (start date - stop date) Never Smoker NA - NA Tobacco Control (Standard) Question Answer Notes Tobacco use: Nonsmoker Problems Problem Type SNOMED Code ICD Code Onset Dates Problem Status W/U Status Risk Notes Problem Other specified rheumatoid arthritis, 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 Problem Long-term current use of drug therapy (793626858) 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) Active confirmed Problem Rheumatoid arthritis (49339159) Rheumatoid arthritis, unspecified (M06.9) 5 Active confirmed Vital Signs Heart Rate 114 /min 03/14/2025 Temperature 98.1 degrees Fahrenheit 03/14/2025 Height-cm 160.02 cm 03/14/2025 Blood pressure diastolic 80 mm Hg 03/14/2025 Oximetry 83 % 03/14/2025 Weight-kg 73.94 kg 03/14/2025 Height 63 in 03/14/2025 Blood pressure systolic 160 mm Hg 03/14/2025 Weight 163 lbs 03/14/2025 BMI 28.87 kg/m2 03/14/2025 Encounters Encounter Location Date Provider Diagnosis [facility] [address] [facility] [address] [place] [address] 05/24/2024 Filippo DiValerio Other detention (current) drug therapy Z79.899 and Other specified rheumatoid arthritis, 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 [facility] [address] [place] [address] 09/02/2024 Filippo DiValerio 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 Z79.899 and Other specified rheumatoid arthritis, 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 [facility] [address] [place] [address] 12/01/2024 Filippo DiValerio 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 Z79.899 and Other specified rheumatoid arthritis, 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 [facility] [address] [place] [address] 03/02/2025 Filippo DiValerio 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 Z79.899 and Other specified rheumatoid arthritis, 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 [facility] [address] [place] [address] 03/14/2025 Filippo DiValerio Other detention (current) drug therapy Z79.899 ; Other specified rheumatoid arthritis, 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 ; Elevated LFTs R79.89 and Elevated alkaline phosphatase level R74.8 [facility] [address] [place] [address] 03/07/2025 Filippo DiValerio Assessments Encounter Date Diagnosis (ICD Code) Assessment Notes Treatment Notes Treatment Clinical Notes Section Notes 05/24/2024 Other specified rheumatoid arthritis, multiple sites (ICD-10 - M06.89) 05/24/2024 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 (ICD-10 - Z79.899) 09/02/2024 Other specified rheumatoid arthritis, multiple sites (ICD-10 - M06.89) 09/02/2024 Other detention (current) drug therapy (ICD-10 - Z79.899) 12/01/2024 Other specified rheumatoid arthritis, multiple sites (ICD-10 - M06.89) 12/01/2024 Other detention (current) drug therapy (ICD-10 - Z79.899) 03/02/2025 Other detention (current) drug therapy (ICD-10 - Z79.899) 03/14/2025 Other specified rheumatoid arthritis, multiple sites (ICD-10 - M06.89) 03/14/2025 Other detention (current) drug therapy (ICD-10 - Z79.899) 03/14/2025 Elevated LFTs (ICD-10 - R79.89) 03/02/2025 Other specified rheumatoid arthritis, multiple sites (ICD-10 - M06.89) 03/14/2025 Elevated alkaline phosphatase level (ICD-10 - R74.8) 03/14/2025 Other Liver ultrasound ordered. Plan Of Treatment Pending Test Test Name Order Date Alkaline Phosphatase, S 03/14/2025 CBC With Differential/Platelet 4 CBC With Differential/Platelet 3 CBC With Differential/Platelet 4 Hepatic Function Panel (7) 11/20/2023 Hepatic Function Panel (7) 08/21/2023 Hepatic Function Panel (7) 02/19/2024 ESR 02/19/2024 Creatinine 02/19/2024 Creatinine 08/21/2023 Creatinine 11/20/2023 Hep Func Panel 03/14/2025 Next Appt Details Provider Name:Filippo sylvester, 06/07/2025 11:30:00 AM, [address] [facility] [address], [place], [address], Insurance Providers Payer Name Payer Address Payer Phone Subscriber Number Group Number Insured Name Patient Relationship to Insured Coverage Start Date Coverage End Date [facility] [address] [place] [address] [id number] Laura Clifford Self - patient is the insured [employer] [address] [place], [place] [id number] Laura Clifford Self - patient is the insured 1 DO NOT USE [id number] Laura Clifford Self - patient is the insured 8 [employer] [address] [address] [place] [address] [id number] Laura Clifford Self - patient is the insured 2 [employer] [address] [address] [place] [address] [id number] Thompson Self - patient is the insured [employer] Medicare Ppo [address] [place] [address] [id number] Thompson Self - patient is the insured Medical (General) History Surgical History Surgery Date(Month/Year) Hospitalization History Reason Date(Month/Year)
--- OUTSIDE RECORDS SUMMARY | 2025-03-17 09:34 | XMS_ITS | Clinical Summary ---
Author Organization [facility] Address [address], [facility] [address] [place] [address] Phone Care Team Providers Care Hand Paint Mixer Name Role Phone Parminder Rojas MD Primary Care Provider [phone] Allergies Active Allergy Reactions Criticality Noted Date [...] UNIT Tablet Take by mouth. Activ e [place]-3 Fatty Acids (FISH OIL PO) Take by [...] 9:59 AM CDT Height 160 cm (5' 3) 04/11/2021 9:59 AM CDT Body Mass Index 34.54 04/11/2021 9:59 AM CDT Plan of Treatment Health Maintenance Due Date Last Done Comments Hepatitis C Virus (HCV) Screening 1950 TdaP Immunization 1950 Cologuard 02/12/1997 Immunochemical Fecal Occult Blood 02/12/1997 Respiratory Syncytial Virus (RSV) Immunization (Adult) (1 - Risk 60-74 years 1-dose series) 2012 Zoster Immunization (1 of 2) 05/18/2013 03/23/2013 Pneumococcal Immunization (50+ years) (2 of 2 - PPSV23) 08/20/2021 08/20/2020 SARS-COV-2 Immunization (4 - season) 2024 07/03/2021, 12/20/2020, 11/29/2020 Influenza Immunization (#1) 05/01/202505/31, 06/08/2018, 06/22/2017, Additional history exists Colonoscopy 04/01/2028 04/01/2018 Colorectal Cancer Screening 04/01/2028 Pneumococcal Immunization Combined Discontinued 08/20/2020 Hepatitis B Immunization Aged Out No longer eligible based on patient's age to complete this topic Human Papillomavirus (HPV) Immunization Aged Out No longer eligible based [...] Maintenance Insurance MEDICARE C AETNA Care Teams Hand Paint Mixer Relationship Specialty Start Date End Date Parminder Rojas MD [address] [address] PCP - General Family Medicine 04/08/18
--- OUTSIDE RECORDS SUMMARY | 2025-03-17 09:34 | XMS_ITS | Clinical Summary ---
Author Organization [facility] Address [address] [place] [address] Care Team Providers Care Inclusion Intern Name Role Phone Max Carpenter MD Unavailable [phone] Source Comments [facility],non-owned Affiliates and Associated Physician Practices is amultiple site organization consisting of ambulatory clinics and hospital sitesin [place], [place], [place] and [place]. This disclosure is being madepursuant to the Care Everywhere program and may not contain all information available regarding this patient. 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 Gender Identity Not on file Sexual Orientation Not on file Last Filed Vital Signs Vital Sign Reading Time Taken Comments Blood Pressure 134/68 07/22/2011 4:17 PM CAP MACHINE OPERATOR Pulse 81 07/22/2011 4:17 PM CAP MACHINE OPERATOR Temperature 36.9 C (98.5 F) 07/22/2011 4:17 PM CAP MACHINE OPERATOR Respiratory Rate 18 07/22/2011 4:17 PM CAP MACHINE OPERATOR Oxygen Saturation 96% 07/22/2011 4:17 PM CAP MACHINE OPERATOR Inhaled Oxygen Concentration - - Weight 104.3 kg (230 lb) 07/22/2011 6:45 AM CAP MACHINE OPERATOR Height 160 cm (5' 3) 07/22/2011 6:45 AM CAP MACHINE OPERATOR Body Mass Index 40.74 07/22/2011 6:45 AM CAP MACHINE OPERATOR Plan of Treatment Health Maintenance Due [...] 60-74 years 1-dose series) 2012 COVID-19 VACCINE (1 - 2023-2 5 season) 2024 DEPRESSION SCREENING 08/31/2024 MEDICARE AWV CALENDAR YEAR 2024 INFLUENZA VACCINE (#1) 2025 HEPATITIS B VACCINE Aged Out No [...] age to complete this topic Insurance [employer] [facility] A[facility]IC[facility] ADV SELF PAY NO INSURANCE Member Subscriber Plan / Payer (Ef fective for All Dates) Name:Laura Valenzuela Member ID:Not on file Relation to Subscriber:Not on file Name:LAURA VALENZUELA Subscriber ID:Not on file Address: [address] [place] [address] [place] [address] Payer ID:Not on file Group ID:Not on file Type:Self Pay Address: [place], [place] Advance Directives * FULL RESUSCITATION (Latest Code Status on File) Date Activated Date Inactivated Comments 07/22/2011 12:27 PM 07/23/2011 6:58 AM Care Teams Inclusion Intern Relationship Specialty Start Date End Date Max Carpenter MD Physician Rheumatology 08/10/11
--- OUTSIDE RECORDS SUMMARY | 2025-03-17 09:34 | XMS_ITS | Clinical Summary ---
Author Organization [facility] Address [address] [place] [address] Care Team Providers Care Credit Director Name Role Phone Parminder Rojas MD Primary Care Provider [phone] Yannick Guevara MD Unavailable [phone] Ayde Peña MD Unavailable [phone] Allergies Active Allergy Reactions Criticality Noted [...] - 03/14/2025 11:59 PM CDT Hospital Encounter [address] [address] Discharge Disposition: Discharge to home or self care 03/02/2025 4:38 PM CDT - 03/02/2025 11:59 PM CDT Hospital Encounter [address] [address] Discharge Disposition: Discharge to home or self care from Last 3 Months Surgical History Surgery [...] on file Legal Sex Female 2:00 AM JAVA LEAD ENGINEER Gender Identity Not on file Sexual Orientation Not on file Obstetrics History Last Filed Vital Signs Vital Sign Reading Time Taken Comments Blood Pressure 161/74 08/26/2024 1:13 PM JAVA LEAD ENGINEER Pulse 63 08/26/2024 1:13 PM JAVA LEAD ENGINEER Temperature 36.1 C (96.9 F) 08/06/2021 1:42 PM JAVA LEAD ENGINEER Respiratory Rate 16 07/20/2024 9:06 AM JAVA LEAD ENGINEER Oxygen Saturation 92% 07/20/2024 9:06 AM JAVA LEAD ENGINEER Inhaled Oxygen Concentration - - Weight 81.6 kg (180 lb) 09/14/2024 12:16 PM JAVA LEAD ENGINEER Height 154.9 cm (5' 1) 09/14/2024 12:16 PM JAVA LEAD ENGINEER Body Mass Index 34.01 09/14/2024 12:16 PM JAVA LEAD ENGINEER Plan of Treatment Health Maintenance Due Date [...] season) 2024 12/20/2020, 11/29/2020 Influenza Vaccine (#1) 2025 8, 06/22/2017, 07/07/2016, Additional history exists Procedures [...] Bilirubin, direct 0.3 0.1 - 0.3 mg/dL [facility] Protein, pl 6.6 6.5 - 8.5 g/dL [facility] Albumin 3.8 3.5 - 5.0 g/dL [facility] Alk phos 390(H) 40 - 130 Units/L [facility] ALT 78(H) 7 - 45 Units/L [facility] AST 74(H) 10 - 45 Units/L [facility] Blood 03/14/2025 1:36 PM CDT 03/14/2025 8:52 PM CDT us Filippo Carpenter MD LAB BLOOD ORDERABLES Fin al Result [facility] [address] [place] [address] * eGFR (03/02/2025 11:04 AM CDT) eGFR >90 >=60 mL/min/1. 73 m2 Comment: [...] al Result [facility] [address] Department [place] [address] * (ABNORMAL) Differential, auto (03/02/2025 11:04 AM CDT) Pathologist [facility] Neutrophil abs 4.90 1.50 - 6.50 K/cumm Imm gran abs 0.05 0.00 - 0.10 K/cumm [facility] Lymphocyte abs 1.39 0.80 - 3.30 K/cumm [facility] Monocyte abs 1.04(H) 0.20 - 0.80 K/cumm [facility] Eosinophil abs 0.45 0.00 - 0.50 K/cumm [facility] Basophil abs 0.10 0.00 - 0.10 K/cumm [facility] Neutrophil pct 61.8 % [facility] Comment: Interpretive Data Percent cell count reference ranges are not reported, since discordance with absolute values may lead to misinterpretation of CBC data. Current Interpretive Data was last revised on 2017. Imm gran pct 0.6 % [facility] Comment: Interpretive Data Percent cell count reference ranges are not reported, since discordance with absolute values may lead to misinterpretation of CBC data. Current Interpretive Data was last revised on 2017. Lymphocyte pct 17.5 % [facility] Comment: Interpretive Data Percent cell count reference ranges are not reported, since discordance with absolute values may lead to misinterpretation of CBC data. Current Interpretive Data was last revised on 2017. Monocyte pct 13.1 % [facility] Comment: Interpretive Data Percent cell count reference ranges are not reported, since discordance with absolute values may lead to misinterpretation of CBC data. Current Interpretive Data was last revised on 2017. Eosinophil pct 5.7 % [facility] Comment: Interpretive Data Percent cell count reference ranges are not reported, since discordance with absolute values may lead to misinterpretation of CBC data. Current Interpretive Data was last revised on 2017. Basophil pct 1.3 % [facility] Comment: Interpretive Data Percent cell count reference ranges are not reported, since discordance with absolute values may lead to misinterpretation of CBC data. Current Interpretive Data was last revised on 2017. Blood 03/02/2025 11:0 4 AM CDT 03/02/2025 6:14 PM CDT us Filippo Carpenter MD LAB BLOOD ORDERABLES Fin al Result [facility] [address] Department [place] [address] * (ABNORMAL) CBC with auto differential (03/02/2025 11:04 AM CDT) WBC 7.93 3.80 - 9.90 K/cumm Hgb 12.3 11.9 - 15.5 g/dL [facility] Hct 39.5 35.6 - 45.5 % [facility] Plt 268 150 - 400 K/cumm [facility] MPV 12.3 9.1 - 12.3 fL [facility] RBC 4.28 3.90 - 5.20 M/cumm [facility] MCV 92.3 81.3 - 96.4 fL [facility] MCH 28.7 27.1 - 33.3 pg [facility] MCHC 31.1(L) 32.3 - 35.7 g/dL [facility] RDW CV 16.5(H) 11.1 - 14.9 % [facility] RDW SD 53.5(H) 35.7 - 48.1 fL [facility] NRBC abs 0.00 0.00 - 0.01 K/cumm [facility] Blood 03/02/2025 11:0 4 AM CDT 03/02/2025 6:14 PM CDT Filippo Carpenter MD LAB BLOOD ORDERABLES Fin al Result Performing Organization Address City/[facility]/ZIP Co de Phone Number [facility] [address] [place] [address] * Creatinine (03/02/2025 11:04 AM CDT) Creatinine 0.69 0.60 - 1.10 mg/dL Blood 03/02/2025 11:0 4 AM CDT 03/02/2025 6:14 PM CDT Filippo Carpenter MD LAB BLOOD ORDERABLES Fin al Result Performing Organization Address [facility]/ZIP Co de Phone Number [facility] [address] Department [place], [place] [id number] * (ABNORMAL) Hepatic function panel (03/02/2025 11:04 AM CDT) Bilirubin, total 0.7 0.1 - 1.2 mg/dL Bilirubin, direct 0.4(H) 0.1 - 0.3 mg/dL [facility] Protein, pl 6.5 6.5 - 8.5 g/dL [facility] Albumin 3.5 3.5 - 5.0 g/dL [facility] Alk phos 357(H) 40 - 130 Units/L [facility] ALT 88(H) 7 - 45 Units/L [facility] AST 78(H) 10 - 45 Units/L [facility] Blood 03/02/2025 11:0 4 AM CDT 03/02/2025 6:14 PM CDT us Filippo Carpenter MD LAB BLOOD ORDERABLES Fin al Result [facility] [address] Department [place] [address] from Last 3 Months Insurance [id number] PPO [id number] P[employer] Care Teams Credit Director Relationship Specialty Start Date End Date Parminder Rojas MD PCP - General 01/19/14 Yannick Guevara MD [phone] [place] [address] Surgeon Colon and Rectal Surgery 02/07/21 Ayde Peña MD [address] [facility] [address] [place] [address] Referring Physician Family Medicine 02/07/21
--- OUTSIDE RECORDS SUMMARY | 2025-03-17 09:34 | XMS_ITS | Data Portability ---
Author Organization [place] [facility], Main Office Address [address] [facility] [address] [place] [address] Care Team Providers Care Prepress Technician Name Role Phone TERRENCE HOWELL Primary Care Provider [phone] Assessment No assessment recorded. Plan of Treatment Reminders Order Date Submit Date Provider Last Modified By Organization Details Last Modified Time Details Appointments None recorded. Lab None recorded. Referral colon & rectal surgeon referral - She can see any of the surgeons in the department. She does have an appointment on 02/07/21. 2020 021 HANSEL Guevara MD, [address] [facility], [place], [address], 18:22:55 Procedures None recorded. Surgeries None recorded. Imaging None recorded. Medication Orders None recorded. Patient TargetsNo targets recorded. Patient Instructions Encounter Date Encounter Id Patient Instructions Last Modified By Organization Details Last Modified Time 02/06/2021 [id number] She will follow up with the C&R surgeon as above. On today's visit I spent a total of 40 minutes [id number] with her and her , arranging for [...] Details Recorded Time Pile reducible with difficulty 982301509 Active 2020 Ayde Peña MD [address] [place] [address],[place] [address], [facility] [place] 1 15:55:09 External hemorrhoids 81696150 Active 2020 Ayde Peña MD [address] [place] [address],[place] [address], [facility] [place] [facility] 16:01:01 History of placement of stent for coronary artery disease 289314387 Active 2020 Ayde Peña MD [address] [place] [address],[place] [address], [facility] [place] 1 16:01:39 Rheumatoid arthritis 69065855 Active 2020 Ayde Peña MD [address] [place] [address], [facility] [place] 1 16:03:39 Essential hypertension 14079952 Active 2020 Ayde Peña MD [address] [place] [address], [facility] [place] 1 16:04:08 Family history of cancer of colon 298860962 Active 2020 Ayde Peña MD [address] [place] [address], [facility] [place] 1 16:04:10 Gastroesophage al reflux disease without esophagitis 008795061 Active 2020 Ayde Peña MD [address] [place] [address], [facility] [place] [facility] 16:06:21 Chronic obstructive pulmonary disease 00276229 Active 2020 Ayde Peña MD [address] [facility], [place], [address], [facility] 16:06:46 Problem Notes None recorded. Procedures Surgical History Date Name Laterality Status Provider Name and Address Organization Details Recorded Time 02/07/20 21 Anoscopy completed Ayde Peña MD [address] [facility],[address], [place], [address], [facility] 02/06/2021 15:22:11 07/01/20 20 excision of skin carcinoma completed [facility] 02/06/2021 12:01:02 08/31/19 19 Date of Last Mammogram completed [facility] 02/06/2021 12:01:37 07/31/20 18 Colonoscopy completed [facility] 02/06/2021 11:42:55 12/30/19 18 release of trigger finger completed [facility] 02/06/2021 11:59:54 12/30/19 18 arthroplasty of joint of the thumb completed [facility] 02/06/2021 12:00:17 05/01/20 17 extraction of cataract completed [facility] 02/06/2021 11:59:34 03/31/20 17 extraction of cataract completed [facility] 02/06/2021 11:59:14 12/30/19 17 lumbar spinal fusion completed [facility] 02/06/2021 11:58:27 04/10/20 16 total shoulder replacement completed [facility] 02/06/2021 11:58:04 02/28/20 14 repair of mitral valve completed [facility] 02/06/2021 11:57:27 11/30/19 14 placement of stent in circumflex branch of left coronary artery completed [facility] 02/06/2021 11:57:43 11/30/19 14 placement of stent in coronary artery completed Ayde Peña [place] [address] [place] [address],[address], [place], [address], [facility] 02/06/2021 15:09:43 05/01/20 12 repair of tendo achilles completed [facility] 02/06/2021 11:57:06 07/01/20 11 primary lumbar discectomy completed [facility] 02/06/2021 11:56:15 11/30/19 10 hammer toe operation completed [facility] 02/06/2021 11:56:34 01/30/20 08 primary lumbar discectomy completed Emelykrys Brennan [facility] 02/06/2021 11:44:01 11/30/19 08 Carpal tunnel surgery completed Emelykrys Brennan [facility] 02/06/2021 11:43:40 07/01/20 07 total knee replacement completed Emelykrys Brennan [facility] 02/06/2021 11:43:22 01/30/20 07 Carpal tunnel surgery completed Emely Brennan [facility] 02/06/2021 11:43:32 10/01/19 07 total knee replacement completed Emely Brennan [facility] 02/06/2021 11:43:11 02/12/19 57 Tonsillectomy completed Ayde Peña MD [address] [place] [address],[address], [place], [address], [facility] 02/06/2021 15:10:41 Imaging Results None recorded. Procedure Notes None recorded. Medical Equipment None Reported. Allergies Allergen ID Allergen Name Allergen Category Reaction Reaction Severity Criticality Documentation Date Start Date Code Code System Note Provider Name and Address Organization Details Recorded Time 4124 codeine medicatio n Not available Not available Not available 02/06/2021 6352 RxNorm [facility] 11:35:42 Medications Name Sig Start Date Stop Date [...] Updated DateTime 02/06/2021 97 [degF] Emely Brennan [facility] [place] 02/06/2021 11:35:23 Social History Question Answer Notes LastModified by Organizat ion Details LastModified Time Tobacco Smoking Status Never Smoker Emely Brennan [facility] [place] 02/06/2021 11:42:13 Do You Have An Advance Directive? No Information not available 02/06/2021 Alcohol Use Yes [email or web address] Information n ot available 02/06/2021 Alcohol Amount Occasional [email or web address] Informatio n not available 02/06/2021 Caffeine Use Yes [email or web address] Information not available 02/06/2021 Caffeine Type Coffee [email or web address] Information not available 02/06/2021 Caffeine Amount 1 Cup [email or web address] Information not available 02/06/2021 Illicit Drug Use No [email or web address] Information not available 02/06/2021 What Was The Date Of Your Most Recent Tobacco Screening? 02/06/2021 Information not available 02/06/2021 Sex: Female Functional Status Question Answer Note LastModified by Organizat ion Details LastModified Time Do you or have you ever used smokeless tobacco? Never used smokeless tobacco [email or web address] Information not available 02/06/2021 Do you or have you ever used e-cigarettes or vape? Never used electronic cigarettes [email or web address] Information not available 02/06/2021 Mental Status None recorded. Family History Relationship Description Onset Age of this Age Resolved Age Notes LastModified by Organization Details LastModified Time Father Malignant tumor of colon 50 Not sure Not available 02/06/2021 14:00:19 Paternal Aunt Malignant tumor of stomach 60 [email or web address] Not available 2020 11:40:10 Mother Coronary arterioscler [email or web address] Not available 2020 11:41:07 Mother Cerebrovascu lar accident [email or web address] Not available 05/2021 11:40:37 Mother Diabetes mellitus [email or web address] Not available 2020 11:40:45 Medical History Condition Response Coronary Artery Disease Y Other Y Atrial Fibrillation N Kidney Stones N Hyperthyroidism N Hernia N Glaucoma N Depression N COPD N Hypothyroidism N Accidental Bowel Leakage Y Headaches/Migraines N Deep Vein Thrombosis N Anxiety Disorder N Cardiac Dysrhythmia N MRSA/VRE Exposure N Genital Herpes N [...] SNOMED-CT Code Diagnosis ICD10 Code Diagnosis Note 10900 Ayde Peña MD Main Office [address] [facility] [address] [place] [address] 02/06/2021 11:19:27 02/06/2021 13:09:00 Pile reducible with difficulty [id number] K64.2 Stage 3 internal hemorrhoid s: She is bleeding fairly heavily and is on warfarin and 81 mg aspirin. I discussed hemorrhoid s in general with her as well as the treatment options. 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 I have referred her to [facility] Dept. of C&R Surgery and she has an appointmen t on [facility]07/[facility]. Pat has the contact informatio n. I advised that if she does become orthostati c or have CP/pressur e/worsenin g SOB/MERCER she needs to go to an ER. I have requested her blood work results from last week. External hemorrhoids 239 [address]3523 K64.4 See above. History of placement of stent for coronary artery disease 156403302 Z95.5 She is on the warfarin and 81 mg aspirin. Rheumatoid arthritis 698 [address]65[address] M06.9 She is on the leflunomid e. Essential hypertension 15260016 I10 Family his tory of cancer of colon 987717102 Z80.0 Her father possibly had colon cancer and at the age of 50. I have requested copies of her last 2 colonoscop ies from her PCP's office. Gastroesop hageal reflux disease without esophagitis 048302412 K21.9 Chronic ob structive pulmonary disease 42447102 J44.9 Health Concerns Section Related Observation LastModified by Organization Detai ls LastModified Time None Recorded Concern Status LastModified by Organization Details LastModified Time None Recorded Advance Directives Directive N: Payers Insurance Date Sequence Insurance Name Policy Number Policy Mccall Covered Member ID Mccall Member ID Guarantor Name 02/06/2021 1 [employer] (MEDICARE REPLACEMENT/ ADVANTAGE - HMO) [id number] Lauraviki Ralphabdulaziz [id number] Laura Krys Darrin Notes Date Note Type Note Provider Name [...] blood work done. She states everything was OK. I have requested those results as she does not have them with her and they are not in shared records. She is very fatigued but does not have orthostatic symptoms, CP/pressure, SOB (worse than her usual) or MERCER (worse than usual). Pain: She has a lot of pain and pressure by the end of the day stating because I am having BM's all day. Itching: She has a lot of external [...] of colon cancer but she is not sure. Bowel Habits: Her BM's have been very irregular for the last 2 weeks - she has had soft BM's multiple times daily. Ayde Peña MD [address] [facility],[address], [place], [address], [facility] 02/06/2021 16:10:16 OBGyn Episode No OBEpisode recorded.
--- OUTSIDE RECORDS SUMMARY | 2025-03-17 09:34 | XMS_ITS | Encounter Summary ---
Author Organization [facility] Address [address] [place] [address] Care Team Providers Care Driver Education Instructor Name Role Phone Filippo Carpenter MD Unavailable [phone] Encounter Details Date Type Department Care Team (Late st Contact Info) Description 07/19/2020 Lab Requisition [facility] [address] [facility] [place] [address] Zora Gilmore MD [address] [facility] [address] [place] [address] Social History Tobacco Use Types Packs/Day Years Used Date Smoking Tobacco: Never Alcohol Use Standard Drinks/Week Comments No 0 (1 standard drink = 0.6 oz pur e alcohol) Comments No Sex and Gender Information Value Date Recorded Sex Assigned at Not on file Legal Sex Female 6:12 AM RECREATION SUPERINTENDENT Gender Identity Not on file Sexual Orientation Not on file documented as of this encounter Plan of Treatment Not on file documented as of this encounter Procedures Procedure Name Priority Date/Time Associated Diagnosis Comments DERMATOPATHOLOGY Routine 07/18/2020 12:0 0 AM RECREATION SUPERINTENDENT documented in this encounter Results * DERMATOPATHOLOGY (07/18/2020 12:00 AM RECREATION SUPERINTENDENT) Case Report Dermatopathology Report Case: [id number] Authorizing Provider: Zora Gilmore MD Collected: 07/18/2020 12:00 AM Ordering Location: [facility] Lab Received: 07/19/2020 05:55 AM Pathologist: Miranda Brennan MD Specimen: Skin, nose tip 0 7:17 PM [facility] DERMATOPATHOLOGY [facility]ORATORY Final Diagnosis Specimen A. SKIN, nose tip: ACTINIC KERATOSIS (L57.0) (see microscopic description) 0 7:17 PM [facility] DERMATOPATHOLOGY LABORATORY at [address] [facility] Clinical History R/O BCC,AK 0 7:17 PM [facility] DERMATOPATHOLOGY [facility]ORATORY Gross Description Specimen A: Received is one formalin filled container labeled with the patient's name and designated nose tip. The specimen consists of a shave biopsy measuring 3x3x1 mm. Jar 0. 0 7:17 PM [facility] DERMATOPATHOLOGY LABORATORY Microscopic Description Specimen A. SKIN, nose tip: There is focal parakeratosis. The lower half of the epidermis shows disorderly maturation of keratinocytes with nuclear pleomorphism. Additional deeper sections were obtained and reviewed. 0 7:17 PM [facility] DERMATOPATHOLOGY LABORATORY Disclaimer An external and internal positive and negative controls are appropriate for the histochemical, immunohistochemical and immunofluorescence stain(s) in this case (if any), except where stated explicitly. The performance characteristics of the stain(s) cited in this report were developed and its performance characteristic determined by the Dermatopathology Laboratory at [facility], directed by Dr. Krys Villagran. These tests need not be, and therefore are not, approved by the [place] Food and Drug Administration. The tests are used for clinical purposes. Billing Codes Specimen Charges Stain Charges 71357 1 0 7:17 PM RECREATION SUPERINTENDENT DERMATOPATHOLOGY LABORATORY Embedded Images 0 7:17 PM [facility] DERMATOPATHOLOGY LABORATORY Pathology/Cytolog y TISSUE SPECIMEN FROM SKIN / Unknown 07/18/2020 07/19/2020 5:55 AM [facility] us Zora Gilmore MD LAB - PATHOLOGY/CYTOLOGY ORD ERABLES Final Result DERMATOPATHOLOGY LABORATORY [facility] - Department of Dermatology [address], [address] [phone] documented in this encounter Visit Diagnoses Not on filedocumented in this encounter Care Teams Driver Education Instructor Relationship Specialty Start Date End Date Filippo Carpenter MD Physician Rheumatology 08/10/11 documented as of this encounter
[2025-03-17 10:09] LABS: Hematocrit 40.4 % (37.0-47.0); Hemoglobin 12.5 g/dL (12.0-15.0); Immature Granulocyte Percent A 0.7 % (0-0.5); Lymphocytes Absolute Auto 1.33 K/mm3 (0.9-3.2); Mean Corpuscular HGB Conc 30.9 g/dl (32-36); Mean Corpuscular Hemoglobin 28.5 pg (26-34); Mean Corpuscular Volume 92.0 fl (80-100); Nucleated Red Blood Cells Absolute Auto 0.000 K/mm3 (0.0-0.012); Nucleated Red Blood Cells Perc 0.0 % (0.0-0.2); Platelet Count Result 265 k/mm3 (150-375); Red Blood Count 4.39 M/mm3 (4.2-5.4); White Blood Count 6.8 K/mm3 (4.5-10.0)
[2025-03-17 10:30] LABS: Blood Urea Nitrogen 16 mg/dL (7-17); Calcium 10.5 mg/dL (8.4-10.2); Carbon Dioxide 33 mmol/L (22-30); Estimated Glomerular Filt Rate > 60; Glucose 128 mg/dL (65-110)
[2025-03-17 10:40] LABS: Iron 76 ug/dL (37-170)
[2025-03-17 10:51] LABS: Percent Iron Saturation 22 % (20-50)
[2025-03-17 10:52] LABS: Anion Gap 6 mmol/L (4-12); Chloride 95 mmol/L (98-107); Potassium 3.3 mmol/L (3.4-5.0); Sodium 134 mmol/L (137-145)
[2025-03-17 11:21] LABS: Ferritin 51.80 ng/mL (11.1-264)
== END 2025-03-17 09:28 | disposition home or self-care (01) ==
PROVIDERS: PCP Family Medicine; Visit Provider Family Medicine
DX: D50.8 Other iron deficiency anemias (principal); I10 Essential (primary) hypertension
CPT/HCPCS: 36415; 80048; 82728; 83540; 83550; 85025

== ENCOUNTER 2025-03-21 07:53 | Outpatient (CLI) | payer OTHER, SELFPAY ==
--- NOTE | ~2025-03-21 | US_ITS ---
US right upper quadrant INDICATION: Abnormal laboratory values. PROCEDURE: Realtime right upper abdominal ultrasound. COMPARISON: No prior studies for comparison. FINDINGS: The pancreas is normal without focal mass or pancreatic ductal dilation. Liver echotexture is increased, consistent with fatty infiltration. There is normal directional flow in the portal ve in. The gallbladder is normal without stones, gallbladder wall thickening or pericholecystic fluid. Comm on bile duct measures 5 mm. No sonographic Brown's sign. IMPRESSION: 1: Fatty infiltration of the liver. Reviewed, dictated and finalized at location A.
== END 2025-03-21 07:54 | disposition home or self-care (01) ==
LOC: MICIMG 07:54
PROVIDERS: PCP Family Medicine
DX: R79.89 Other specified abnormal findings of blood chemistry (principal); K76.0 Fatty (change of) liver, not elsewhere classified
CPT/HCPCS: 76705

== ENCOUNTER 2025-03-21 12:59 | Outpatient (CLI) | payer OTHER, SELFPAY ==
--- OUTSIDE RECORDS SUMMARY | 2025-03-21 13:03 | XMS_ITS | Patient Health Record ---
Author Organization [facility] almita Address [address] [place] [address] Care Team Providers Care Financial Planning Analyst Name Role Phone Sammie RONDON, Parminder Primary Care Provider Unavail able Filippo Jenkins Unavailable [phone] Allergies Allergen (clinical drug ingredient) Drug/Non Drug Allergy documented on EMR Reaction Allergy Type Onset Date Status Amoxicillin ER Unknown Drug Allergy Ac tive codeine Codeine Unknown Drug Allergy 11/05/2004 Active Results Component Value Reference Range Notes CBC w auto diff Reviewed date:05/25/2024 06:19:32 AM Interpretation: Performing Lab:[facility] , [facility]5 [facility]. [facility] [address] Notes/Report: WBC 7.1 3.8-9.9 K/cumm Hgb 13.4 11.9-15.5 g/dL Hct 44.7 35.6-45.5 % Platelet Ct 271 150-400 K/cumm MPV 12.6 9.1-12.3 fL RBC 4.84 3.90-5.20 M/cumm MCV 92.4 81.3-96.4 fL MCH 27.7 27.1-33.3 pg MCHC 30.0 32.3-35.7 g/dL RDW CV 16.7 11.1-14.9 % RDW SD 55.3 35.7-48.1 fL NRBC Abs Auto 0.00 0.00-0.01 K/cumm Creatinine Reviewed date:05/25/2024 06:16:23 AM Interpretation: Performing Lab:[facility] , [address]. [facility] [address] Notes/Report: Creatinine 0.80 0.60-1.10 mg/dL Hep Func Panel Reviewed date:05/25/2024 06:15:44 AM Interpretation: Performing Lab:[facility] , [address] [place] [address]. [facility] [address] Notes/Report: Total Bilirubin 0.5 0.1-1.2 mg/dL Bilirubin, Direct 0.2 0.1-0.3 mg/dL Plasma Total Protein 6.8 6.5-8.5 g/dL Albumin 4.1 3.5-5.0 g/dL Alkaline Phosphatase 58 40-130 Units/L ALT 11 7-45 Units/L AST 16 10-45 Units/L eGFR Reviewed date:05/25/2024 06:17:27 AM Interpretation: Performing Lab:[facility] , [address] [place] [address]. [facility] [address] Notes/Report: eGFR 78 >=60 mL/min/1.73 m2 Interpretive [...] Automated Reviewed date:05/25/2024 06:17:21 AM Interpretation: Performing Lab:[facility] , [address] [place] [address]. [facility] [address] Notes/Report: Neut Abs 4.7 1.5-6.5 K/cumm ImmGran Abs 0.0 0.0-0.1 K/cumm Lymphocyte Abs 1.2 0.8-3.3 K/cumm [place] Abs 0.8 0.2-0.8 K/cumm Eos Abs 0.2 [...] Interpretive Data was last revised on 2017. [place] Pct 11.6 Interpretive Data Percent cell count [...] yet revi ewed by provider) Interpretation: Performing Lab:[facility] , [address] [facility] [address] Notes/Report: Total Bilirubin 0.6 0.1-1.2 mg/dL Bilirubin, Direct 0.3 0.1-0.3 mg/dL Plasma Total Protein 6.6 6.5-8.5 g/dL Albumin 3.8 3.5-5.0 g/dL Alkaline Phosphatase 390 40-130 Units/L ALT 78 7-45 Units/L AST 74 10-45 Units/L eGFR Reviewed date:03/04/2025 09:01:05 AM Interpretation: Performing Lab:[facility] , [address] [place] [address]. [facility] [address] Notes/Report: eGFR >90 >=60 mL/min/1.73 m2 Interpretive [...] Automated Reviewed date:03/04/2025 09:00:49 AM Interpretation: Performing Lab:[facility] , [facility]5 [facility]. [facility] [address] Notes/Report: Neut Abs 4.90 1.50-6.50 K/cumm ImmGran Abs 0.05 0.00-0.10 K/cumm Lymphocyte Abs 1.39 0.80-3.30 K/cumm [place] Abs 1.04 0.20-0.80 K/cumm Eos Abs 0.45 [...] Interpretive Data was last revised on 2017. [place] Pct 13.1 Interpretive Data Percent cell count [...] eGFR Reviewed date:12/01/2024 12:56:10 PM Interpretation: Performing Lab:[facility] , [address] [facility] [address] Notes/Report: eGFR 86 >=60 mL/min/1.73 m2 Interpretive [...] Automated Reviewed date:12/01/2024 12:56:18 PM Interpretation: Performing Lab:[facility] , [address] [facility]. [place] [address] Notes/Report: Neut Abs 4.61 1.50-6.50 K/cumm ImmGran Abs 0.05 0.00-0.10 K/cumm Lymphocyte Abs 1.45 0.80-3.30 K/cumm [place] Abs 0.88 0.20-0.80 K/cumm Eos Abs 0.26 [...] Interpretive Data was last revised on 2017. [place] Pct 12.0 Interpretive Data Percent cell count [...] eGFR Reviewed date:09/03/2024 03:29:31 PM Interpretation: Performing Lab:[facility] , [address] [place] [address]. [facility] [address] Notes/Report: eGFR >90 >=60 mL/min/1.73 m2 Interpretive [...] Automated Reviewed date:09/03/2024 03:29:31 PM Interpretation: Performing Lab:[facility] , [facility]5 [facility]. [facility] [address] Notes/Report: Neut Abs 4.5 1.5-6.5 K/cumm ImmGran Abs 0.0 0.0-0.1 K/cumm Lymphocyte Abs 1.3 0.8-3.3 K/cumm [place] Abs 0.8 0.2-0.8 K/cumm Eos Abs 0.1 [...] Interpretive Data was last revised on 2017. [place] Pct 12.1 Interpretive Data Percent cell count [...] revised on 2017. Hep Func Panel Reviewed date:03/07/2025 04:43:01 PM Interpretation: Performing Lab:[facility] , [address] [place] [address]. [facility] [address] Notes/Report: Total Bilirubin 0.7 0.1-1.2 mg/dL Bilirubin, Direct 0.4 0.1-0.3 mg/dL Plasma Total Protein 6.5 6.5-8.5 g/dL Albumin 3.5 3.5-5.0 g/dL Alkaline Phosphatase 357 40-130 Units/L ALT 88 7-45 Units/L AST 78 10-45 Units/L Creatinine Reviewed date:03/04/2025 08:59:24 AM Interpretation: Performing Lab:[facility] , [address] [place] [address]. [facility] [address] Notes/Report: Creatinine 0.69 0.60-1.10 mg/dL CBC w auto diff Reviewed date:03/06/2025 08:07:52 AM Interpretation: Performing Lab:[facility] , [address] [place] [address]. [facility] [address] Notes/Report: WBC 7.93 3.80-9.90 K/cumm Hgb 12.3 11.9-15.5 g/dL Hct 39.5 35.6-45.5 % Platelet Ct 268 150-400 K/cumm MPV 12.3 9.1-12.3 fL RBC 4.28 3.90-5.20 M/cumm MCV 92.3 81.3-96.4 fL MCH 28.7 27.1-33.3 pg MCHC 31.1 32.3-35.7 g/dL RDW CV 16.5 11.1-14.9 % RDW SD 53.5 35.7-48.1 fL NRBC Abs Auto 0.00 0.00-0.01 K/cumm Hep Func Panel Reviewed date:12/01/2024 12:55:55 PM Interpretation: Performing Lab:[facility] , [address] [place] [address]. [facility] [address] Notes/Report: Total Bilirubin 0.4 0.1-1.2 mg/dL Bilirubin, Direct 0.2 0.1-0.3 mg/dL Plasma Total Protein 6.4 6.5-8.5 g/dL Albumin 3.6 3.5-5.0 g/dL Alkaline Phosphatase 53 40-130 Units/L ALT 14 7-45 Units/L AST 17 10-45 Units/L Creatinine Reviewed date:12/01/2024 12:56:00 PM Interpretation: Performing Lab:[facility] , [address] [place] [address]. [facility] [address] Notes/Report: Creatinine 0.74 0.60-1.10 mg/dL CBC w auto diff Reviewed date:12/01/2024 12:56:05 PM Interpretation: Performing Lab:[facility] , [address] [place] [address]. [facility] [address] Notes/Report: WBC 7.33 3.80-9.90 K/cumm Hgb 13.0 11.9-15.5 g/dL Hct 40.6 35.6-45.5 % Platelet Ct 273 150-400 K/cumm MPV 11.9 9.1-12.3 fL RBC 4.41 3.90-5.20 M/cumm MCV 92.1 81.3-96.4 fL MCH 29.5 27.1-33.3 pg MCHC 32.0 32.3-35.7 g/dL RDW CV 14.8 11.1-14.9 % RDW SD 48.4 35.7-48.1 fL NRBC Abs Auto 0.00 0.00-0.01 K/cumm Hep Func Panel Reviewed date:09/03/2024 03:29:31 PM Interpretation: Performing Lab:[facility] , [address] [place] [address]. [facility] [address] Notes/Report: Total Bilirubin 0.4 0.1-1.2 mg/dL Bilirubin, Direct 0.2 0.1-0.3 mg/dL Plasma Total Protein 6.2 6.5-8.5 g/dL Albumin 4.1 3.5-5.0 g/dL Alkaline Phosphatase 50 40-130 Units/L ALT 16 7-45 Units/L AST 18 10-45 Units/L Creatinine Reviewed date:09/03/2024 03:29:31 PM Interpretation: Performing Lab:[facility] , [facility]5 [facility]. [place] [address] Notes/Report: Creatinine 0.68 0.60-1.10 mg/dL CBC w auto diff Reviewed date:09/03/2024 03:29:31 PM Interpretation: Performing Lab:[facility] , [facility]5 [facility]. [place] [address] Notes/Report: WBC 6.8 3.8-9.9 K/cumm Hgb 13.9 [...] Duration: 28 Days Active Vitamin D (Ergocalciferol) 55749 UNIT Oral Active Sotalol HCl 80 MG [...] or upper arm rotating injection sites Subcutaneous [id number] Not-Taking Pravastatin Sodium 10 MG take 1 [...] Problem Long-term current use of drug therapy (928410772) Other extermination inspector (current) drug therapy (Z79.899) Active confirmed Problem Rheumatoid arthritis (68851404) Rheumatoid arthritis, unspecified (M06.9) 5 Active confirmed Vital Signs Heart Rate 114 /min 03/14/2025 Temperature 98.1 degrees Fahrenheit 03/14/2025 Height-cm 160.02 cm 03/14/2025 Blood pressure diastolic 80 mm Hg 03/14/2025 Oximetry 83 % 03/14/2025 Weight-kg 73.94 kg 03/14/2025 Height 63 in 03/14/2025 Blood pressure systolic 160 mm Hg 03/14/2025 Weight 163 lbs 03/14/2025 BMI 28.87 kg/m2 03/14/2025 Encounters Encounter Location Date Provider Diagnosis [facility] [address] [place] [address] 05/24/2024 Filippo DiValerio Other retirement (current) drug therapy Z79.899 and Other specified rheumatoid arthritis, 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 [facility] [address] [place] [address] 09/02/2024 Filippo DiValerio Other extermination inspector (current) drug therapy Z79.899 and Other specified rheumatoid arthritis, 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 [facility] [address] [place] [address] 12/01/2024 Filippo DiValerio Other extermination inspector (current) drug therapy Z79.899 and Other specified rheumatoid arthritis, 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 [facility] [address] [place] [address] 03/02/2025 Filippo DiValerio Other extermination inspector (current) drug therapy Z79.899 and Other specified rheumatoid arthritis, 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 [facility] [address] [place] [address] 03/14/2025 Filippo DiValerio Other retirement (current) drug therapy Z79.899 ; Other specified rheumatoid arthritis, 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 ; Elevated LFTs R79.89 and Elevated alkaline phosphatase level R74.8 [facility] [address] [place] [address] 03/07/2025 Filippo DiValerio Assessments Encounter Date Diagnosis (ICD Code) Assessment Notes Treatment Notes Treatment Clinical Notes Section Notes 05/24/2024 Other specified rheumatoid arthritis, multiple sites (ICD-10 - M06.89) 05/24/2024 Other extermination inspector (current) drug therapy (ICD-10 - Z79.899) 09/02/2024 Other specified rheumatoid arthritis, multiple sites (ICD-10 - M06.89) 09/02/2024 Other retirement (current) drug therapy (ICD-10 - Z79.899) 12/01/2024 Other specified rheumatoid arthritis, multiple sites (ICD-10 - M06.89) 12/01/2024 Other retirement (current) drug therapy (ICD-10 - Z79.899) 03/02/2025 Other retirement (current) drug therapy (ICD-10 - Z79.899) 03/14/2025 Other specified rheumatoid arthritis, multiple sites (ICD-10 - M06.89) 03/14/2025 Other retirement (current) drug therapy (ICD-10 - Z79.899) 03/14/2025 [...] Name:Filippo sylvester, 06/07/2025 11:30:00 AM, [address], [place], [address], Insurance Providers Payer Name Payer Address Payer Phone Subscriber Number Group Number Insured Name Patient Relationship to Insured Coverage Start Date Coverage End Date [facility] [address] [place] [address] [id number] Laura Clifford Self - patient is the insured [id number] [address] [place], [place] [id number] Laura Clifford Self - patient is the insured 1 DO NOT USE [id number] Laura Clifford Self - patient is the insured 8 [employer] [address] [address] [place] [address] [id number] Laura Clifford Self - patient is the insured 2 [employer] [address] [address] [place] [address] [id number] Thompson Self - patient is the insured [employer] Medicare Ppo [address] [place] [address] [id number] Thompson Self - patient is the insured Medical (General) History Surgical History Surgery Date(Month/Year) Hospitalization History Reason Date(Month/Year)
--- OUTSIDE RECORDS SUMMARY | 2025-03-21 13:04 | XMS_ITS | Clinical Summary ---
Author Organization [facility] Address [address] [place] [address] Care Team Providers Care Medical Staff Coordinator Name Role Phone Parminder Rojas MD Primary Care Provider [phone] Yannick Guevara MD Unavailable [phone] Ayde Peña MD Unavailable [phone] Allergies Active Allergy Reactions Criticality Noted [...] - 03/14/2025 11:59 PM CDT Hospital Encounter [address] [address] Discharge Disposition: Discharge to home or self care 03/02/2025 4:38 PM CDT - 03/02/2025 11:59 PM CDT Hospital Encounter [address] [address] Discharge Disposition: Discharge to home [...] on file Legal Sex Female 2:00 AM [employer] Gender Identity Not on file Sexual Orientation Not on file Obstetrics History Last Filed Vital Signs Vital Sign Reading Time Taken Comments Blood Pressure 161/74 08/26/2024 1:13 PM [employer] Pulse 63 08/26/2024 1:13 PM [employer] Temperature 36.1 C (96.9 F) 08/06/2021 1:42 PM [employer]ER Respiratory Rate 16 07/20/2024 9:06 AM FR[employer] P[employer]ER Oxygen Saturation 92% 07/20/2024 9:06 AM [employer] Inhaled Oxygen Concentration - - Weight 81.6 kg (180 lb) 09/14/2024 12:16 PM [employer] Height 154.9 cm (5' 1) 09/14/2024 12:16 PM [employer] Body Mass Index 34.01 09/14/2024 12:16 PM [employer]ER Plan of Treatment Health Maintenance Due Date [...] Bilirubin, direct 0.3 0.1 - 0.3 mg/dL [facility] Protein, pl 6.6 6.5 - 8.5 g/dL [facility] Albumin 3.8 3.5 - 5.0 g/dL [facility] Alk phos 390(H) 40 - 130 Units/L [facility] ALT 78(H) 7 - 45 Units/L [facility] AST 74(H) 10 - 45 Units/L [facility] Blood 03/14/2025 1:36 PM CDT 03/14/2025 8:52 PM CDT us Filippo Carpenter MD LAB BLOOD ORDERABLES Fin al Result [facility] [address] [place] [address] * eGFR (03/02/2025 11:04 AM CDT) eGFR [...] LAB BLOOD ORDERABLES Fin al Result [facility] [address] Department [place] [address] * (ABNORMAL) Differential, auto (03/02/2025 11:04 AM CDT) Pathologist [facility] Neutrophil abs 4.90 1.50 - 6.50 K/cumm Imm gran abs 0.05 0.00 - 0.10 K/cumm [facility] Lymphocyte abs 1.39 0.80 - 3.30 K/cumm [facility] Monocyte abs 1.04(H) 0.20 - 0.80 K/cumm [facility] Eosinophil abs 0.45 0.00 - 0.50 K/cumm [facility] Basophil abs 0.10 0.00 - 0.10 K/cumm [facility] Neutrophil pct 61.8 % [facility] Comment: Interpretive Data Percent cell count reference ranges are not reported, since discordance with absolute values may lead to misinterpretation of CBC data. Current Interpretive Data was last revised on 2017. Imm gran pct 0.6 % [facility] Comment: Interpretive Data Percent cell count reference ranges are not reported, since discordance with absolute values may lead to misinterpretation of CBC data. Current Interpretive Data was last revised on 2017. Lymphocyte pct 17.5 % [facility] Comment: Interpretive Data Percent cell count reference ranges are not reported, since discordance with absolute values may lead to misinterpretation of CBC data. Current Interpretive Data was last revised on 2017. Monocyte pct 13.1 % [facility] Comment: Interpretive Data Percent cell count reference ranges are not reported, since discordance with absolute values may lead to misinterpretation of CBC data. Current Interpretive Data was last revised on 2017. Eosinophil pct 5.7 % [facility] Comment: Interpretive Data Percent cell count reference ranges are not reported, since discordance with absolute values may lead to misinterpretation of CBC data. Current Interpretive Data was last revised on 2017. Basophil pct 1.3 % [facility] Comment: Interpretive Data Percent cell count reference ranges are not reported, since discordance with absolute values may lead to misinterpretation of CBC data. Current Interpretive Data was last revised on 2017. Blood 03/02/2025 11:0 4 AM CDT 03/02/2025 6:14 PM CDT us Filippo Carpenter MD LAB BLOOD ORDERABLES Fin al Result [facility] [address] [place] [address] * (ABNORMAL) CBC with auto differential (03/02/2025 11:04 AM CDT) WBC 7.93 3.80 - 9.90 K/cumm Hgb 12.3 11.9 - 15.5 g/dL [facility] Hct 39.5 35.6 - 45.5 % [facility] Plt 268 150 - 400 K/cumm [facility] MPV 12.3 9.1 - 12.3 fL [facility] RBC 4.28 3.90 - 5.20 M/cumm [facility] MCV 92.3 81.3 - 96.4 fL [facility] MCH 28.7 27.1 - 33.3 pg [facility] MCHC 31.1(L) 32.3 - 35.7 g/dL [facility] RDW CV 16.5(H) 11.1 - 14.9 % [facility] RDW SD 53.5(H) 35.7 - 48.1 fL [facility] NRBC abs 0.00 0.00 - 0.01 K/cumm [facility] Blood 03/02/2025 11:0 4 AM CDT 03/02/2025 6:14 PM CDT Filippo Carpenter MD LAB BLOOD ORDERABLES Fin al Result Performing Organization Address City/[facility]/ZIP Co de Phone Number [facility] [address] [place] [place] [address] * Creatinine (03/02/2025 11:04 AM CDT) Creatinine 0.69 0.60 - 1.10 mg/dL Blood 03/02/2025 11:0 4 AM CDT 03/02/2025 6:14 PM CDT Filippo Carpenter MD LAB BLOOD ORDERABLES Fin al Result Performing Organization Address [facility]/ZIP Co de Phone Number [facility] [address] Department [employer] [place], [place] [id number] * (ABNORMAL) Hepatic function panel (03/02/2025 11:04 AM CDT) Bilirubin, total 0.7 0.1 - 1.2 mg/dL Bilirubin, direct 0.4(H) 0.1 - 0.3 mg/dL [facility] Protein, pl 6.5 6.5 - 8.5 g/dL [facility] Albumin 3.5 3.5 - 5.0 g/dL [facility] Alk phos 357(H) 40 - 130 Units/L [facility] ALT 88(H) 7 - 45 Units/L [facility] AST 78(H) 10 - 45 Units/L [facility] Blood 03/02/2025 11:0 4 AM CDT 03/02/2025 6:14 PM CDT us Filippo Carpenter MD LAB BLOOD ORDERABLES Fin al Result [facility] [address] [place] [address] from Last 3 Months Insurance [employer] PPO [employer] Care Teams Medical Staff Coordinator Relationship Specialty Start Date End Date Parminder Rojas MD PCP - General 01/19/14 Yannick Guevara MD [phone] [place] [address] Surgeon Colon and Rectal Surgery 02/07/21 Ayde Peña MD [address] [facility] [address] [place] [address] Referring Physician Family Medicine 02/07/21
--- OUTSIDE RECORDS SUMMARY | 2025-03-21 13:04 | XMS_ITS | Encounter Summary ---
Author Organization [facility] Health Address [address] [facility] [place] [address] Care Team Providers Care Crusher Loader Operator Name Role Phone Filippo Carpenter MD Unavailable [phone] Encounter Details Date Type Department Care Team (Late st Contact Info) Description 07/19/2020 Lab Requisition [facility] [address] [facility], [place] [address] Zora Gilmore MD [address] [facility] [address] [place] [address] Social History Tobacco Use Types Packs/Day Years Used Date Smoking Tobacco: Never Alcohol Use Standard Drinks/Week Comments No 0 (1 standard drink = 0.6 oz pur e alcohol) Comments No Sex and Gender Information Value Date Recorded Sex Assigned at Not on file Legal Sex Female 6:12 AM PUMPER HELPER Gender Identity Not on file Sexual Orientation Not on file documented as of this encounter Plan of Treatment Not on file documented as of this encounter Procedures Procedure Name Priority Date/Time Associated Diagnosis Comments DERMATOPATHOLOGY Routine 07/18/2020 12:0 0 AM PUMPER HELPER documented in this encounter Results * DERMATOPATHOLOGY (07/18/2020 12:00 AM PUMPER HELPER) Case Report Dermatopathology Report Case: [id number] Authorizing Provider: Zora Gilmore MD Collected: 07/18/2020 12:00 AM Ordering Location: [facility] Received: 07/19/2020 05:55 AM Pathologist: Miranda Brennan MD Specimen: Skin, nose tip 0 7:17 PM [facility] DERMATOPATHOLOGY LABORATORY Final Diagnosis Specimen A. SKIN, nose tip: ACTINIC KERATOSIS (L57.0) (see microscopic description) 0 7:17 PM [facility] DERMATOPATHOLOGY LABORATORY at [address] [facility] Clinical History R/O BCC,AK 0 7:17 PM [facility] DERMATOPATHOLOGY LABORATORY Gross Description Specimen A: Received is one formalin filled container labeled with the patient's name and designated nose tip. The specimen consists of a shave biopsy measuring 3x3x1 mm. Jar 0. 0 7:17 PM [facility] DERMATOPATHOLOGY LABORATORY Microscopic Description Specimen A. SKIN, nose tip: There is focal parakeratosis. The lower half of the epidermis shows disorderly maturation of keratinocytes with nuclear pleomorphism. Additional deeper sections were obtained and reviewed. 0 7:17 PM [facility] DERMATOPATHOLOGY LABORATORY Disclaimer An external and internal positive and negative controls are appropriate for the histochemical, immunohistochemical and immunofluorescence stain(s) in this case (if any), except where stated explicitly. The performance characteristics of the stain(s) cited in this report were developed and its performance characteristic determined by the Dermatopathology Laboratory at [facility], directed by Dr. Krys Villagran. These tests need not be, and therefore are not, approved by the [place] Food and Drug Administration. The tests are used for clinical purposes. Billing Codes Specimen Charges Stain Charges 76712 1 0 7:17 PM PUMPER HELPER DERMATOPATHOLOGY LABORATORY Embedded Images 0 7:17 PM [facility] DERMATOPATHOLOGY LABORATORY Pathology/Cytolog y TISSUE SPECIMEN FROM SKIN / Unknown 07/18/2020 07/19/2020 5:55 AM [facility] us Zora Gilmore MD LAB - PATHOLOGY/CYTOLOGY ORD ERABLES Final Result DERMATOPATHOLOGY LABORATORY [facility] - Department of Dermatology [address], [address] [phone] documented in this encounter Visit Diagnoses Not on filedocumented in this encounter Care Teams Crusher Loader Operator Relationship Specialty Start Date End Date Filippo Carpenter MD Physician Rheumatology 08/10/11 documented as of this encounter
--- OUTSIDE RECORDS SUMMARY | 2025-03-21 13:04 | XMS_ITS | Data Portability ---
Author Organization [facility], Main Office Address [address] [facility] [address] [place] [address] Care Team Providers Care Postal Mail Carrier Name Role Phone TERRENCE HOWELL Primary Care [...] 2020 021 HANSEL Guevara MD, [address] [facility], [place], [address], 18:22:55 Procedures None recorded. Surgeries None recorded. Imaging None recorded. Medication Orders None recorded. Patient TargetsNo targets recorded. Patient Instructions Encounter Date Encounter Id Patient Instructions Last Modified By Organization Details Last Modified Time 02/06/2021 [id number] She will follow up with the C&R surgeon as above. On today's visit I spent a total of 40 minutes [id number] with her and her , arranging for [...] Details Recorded Time Pile reducible with difficulty 319210722 Active 2020 Ayde Peña MD [address] [place] [address],[place] [address], [facility] 1 15:55:09 External hemorrhoids 28486970 Active 2020 Ayde Pñea MD [address] [place] [address],[place] [address], [facility] 1 16:01:01 History of placement of stent for coronary artery disease 625824574 Active 2020 Ayde Peña MD [address] [place] [address],[place] [address], [facility] 1 16:01:39 Rheumatoid arthritis 49653559 Active 2020 Ayde Peña MD [address] [place] [address], [facility] 1 16:03:39 Essential hypertension 07835961 Active 2020 Ayde Peña MD [address] [place] [address], [facility] 1 16:04:08 Family history of cancer of colon 734293077 Active 2020 Ayde Peña MD [address] [place] [address], [facility] 1 16:04:10 Gastroesophage al reflux disease without esophagitis 552905600 Active 2020 Ayde Peña MD [address] [place] [address], [facility] 1 16:06:21 Chronic obstructive pulmonary disease 47182422 Active 2020 Ayde Peña MD [address] [facility], [place], [address], [facility] 16:06:46 Problem Notes None recorded. Procedures Surgical History Date Name Laterality Status Provider Name and Address Organization Details Recorded Time 02/07/20 21 Anoscopy completed Ayde Peña MD [address] [facility],[address], [place], [address], [facility] 02/06/2021 15:22:11 07/01/20 20 excision of skin carcinoma completed [facility] 02/06/2021 12:01:02 08/31/19 19 Date of Last Mammogram completed [facility] 02/06/2021 12:01:37 07/31/20 18 Colonoscopy completed [facility] 02/06/2021 11:42:55 12/30/19 18 release of trigger finger completed [facility] 02/06/2021 11:59:54 12/30/19 18 arthroplasty of joint of the thumb completed [facility] 02/06/2021 12:00:17 05/01/20 17 extraction of cataract completed [facility] 02/06/2021 11:59:34 03/31/20 17 extraction of cataract completed [facility] 02/06/2021 11:59:14 12/30/19 17 lumbar spinal fusion completed [facility] 02/06/2021 11:58:27 04/10/20 16 total shoulder replacement completed [facility] 02/06/2021 11:58:04 02/28/20 14 repair of mitral valve completed [facility] 02/06/2021 11:57:27 11/30/19 14 placement of stent in circumflex branch of left coronary artery completed [facility] 02/06/2021 11:57:43 11/30/19 14 placement of stent in coronary artery completed Ayde Peña [place] [address] [place] [address],[address], [place], [address], [facility] 02/06/2021 15:09:43 05/01/20 12 repair of tendo achilles [facility] 02/06/2021 11:57:06 07/01/20 11 primary lumbar discectomy completed [facility] 02/06/2021 11:56:15 11/30/19 10 hammer toe operation [facility] 02/06/2021 11:56:34 01/30/20 08 primary lumbar discectomy completed Emelykrys Brennan [facility] 02/06/2021 11:44:01 11/30/19 08 Carpal tunnel surgery completed Emelykrys Brennan [facility] 02/06/2021 11:43:40 07/01/20 07 total knee replacement completed Emelykrys Brennan [facility] 02/06/2021 11:43:22 01/30/20 07 Carpal tunnel surgery completed Emely Brennan [facility] 02/06/2021 11:43:32 10/01/19 07 total knee replacement completed Emely Brennan [facility] 02/06/2021 11:43:11 02/12/19 57 Tonsillectomy completed Ayde Peña MD [address] [place] [address],[address], [place], [address], [facility] 02/06/2021 15:10:41 Imaging Results None recorded. Procedure Notes None recorded. Medical Equipment None Reported. Allergies Allergen ID Allergen Name Allergen Category Reaction Reaction Severity Criticality Documentation Date Start Date Code Code System Note Provider Name and Address Organization Details Recorded Time 4124 codeine medicatio n Not available Not available Not available 02/06/2021 3068 RxNorm [facility] 11:35:42 Medications Name Sig [...] Updated DateTime 02/06/2021 97 [degF] Emely Brennan [facility] 02/06/2021 11:35:23 Social History Question Answer Notes LastModified by Organizat ion Details LastModified Time Tobacco Smoking Status Never Smoker Emely Brennan [facility] 02/06/2021 11:42:13 Do You Have An Advance Directive? No [email or web address] Information not available 02/06/2021 Alcohol Use Yes [email or web address] Information n ot available 02/06/2021 Alcohol Amount Occasional [email or web address] Informatio n not available 02/06/2021 Caffeine Use Yes [email or web address] Information not available 02/06/2021 Caffeine Type Coffee [email or web address] Information not available 02/06/2021 Caffeine Amount 1 Cup [email or web address] Information not available 02/06/2021 Illicit Drug Use No [email or web address] Information not available 02/06/2021 What Was The Date Of Your Most Recent Tobacco Screening? 02/06/2021 Information not available 02/06/2021 Sex: Female Functional Status Question Answer Note LastModified by Organizat ion Details LastModified Time Do you or have you ever used smokeless tobacco? Never used smokeless tobacco [email or web address] Information not available 02/06/2021 Do you or have you ever used e-cigarettes or vape? Never used electronic cigarettes Information not available 02/06/2021 Mental Status None recorded. Family History Relationship Description Onset Age of this Age Resolved Age Notes LastModified by Organization Details LastModified Time Father Malignant tumor of colon 50 Not sure Not available 02/06/2021 14:00:19 Paternal Aunt Malignant tumor of stomach 60 [email or web address] Not available 2020 11:40:10 Mother Coronary arterioscler osis [email or web address] Not available 2020 11:41:07 Mother Cerebrovascu lar accident Not available 05/2021 11:40:37 Mother Diabetes mellitus [email or web address] Not available 2020 11:40:45 Medical History Condition [...] SNOMED-CT Code Diagnosis ICD10 Code Diagnosis Note [id number] Ayde Peañ MD Main Office [address] [facility] [address] [place] [address] 02/06/2021 11:19:27 02/06/2021 13:09:00 Pile reducible with difficulty 080021931 K64.2 Stage 3 internal hemorrhoid s: She is bleeding fairly heavily and is on warfarin and 81 mg aspirin. I discussed hemorrhoid s in general with her as well as the treatment options. I do not think she would get terminal supervisor good results with infrared coagulatio n and she has an increased risk of bleeding with every treatment given her blood thinners. I have referred her to [facility] Dept. of C&R Surgery and she has an appointmen t on [facility]/07/21 [facility]. Pat has the contact informatio n. I advised that if she does become orthostati c or have CP/pressur e/worsenin g SOB/MERCER she needs to go to an ER. I have requested her blood work results from last week. External hemorrhoids 239 35741 K64.4 See above. History of placement of stent for coronary artery disease 875837386 Z95.5 She is on the warfarin and 81 mg aspirin. Rheumatoid arthritis 698 21271 M06.9 She is on the leflunomid e. Essential hypertension 56789467 I10 Family his tory of cancer of colon 229435954 Z80.0 Her father possibly had colon cancer and at the age of 50. I have requested copies of her last 2 colonoscop ies from her PCP's office. Gastroesop hageal reflux disease without esophagitis 274957400 K21.9 Chronic ob structive pulmonary disease 37924320 J44.9 Health Concerns Section Related Observation LastModified by Organization Detai ls LastModified Time None Recorded Concern Status LastModified by Organization Details LastModified Time None Recorded Advance Directives Directive N: Payers Insurance Date Sequence Insurance Name Policy Number Policy Mccall Covered Member ID Mccall Member ID Guarantor Name 02/06/2021 1 [employer] (MEDICARE REPLACEMENT/ ADVANTAGE - HMO) [id number] Lauraviki Ralphabdulaziz [id number] Laura Krys Darrin Notes Date Note Type [...] multiple times daily. Ayde Peña MD [address] [facility],[address], [place], [address], [facility] 02/06/2021 16:10:16 OBGyn Episode No OBEpisode recorded.
--- OUTSIDE RECORDS SUMMARY | 2025-03-21 13:04 | XMS_ITS | Clinical Summary ---
Author Organization [facility] Address [address] [facility] [address] [place] [address] Phone Care Team Providers Care Manager Banquet Name Role Phone Parminder Rojas MD Primary Care Provider [phone] Allergies Active Allergy Reactions Criticality Noted Date [...] UNIT Tablet Take by mouth. Activ e Bradley-3 Fatty Acids (FISH OIL PO) Take by [...] Maintenance Insurance MEDICARE C AET[employer] Care Teams Manager Banquet Relationship Specialty Start Date End Date Parminder Rojas MD [address] [address] PCP - General Family Medicine 04/08/18
--- OUTSIDE RECORDS SUMMARY | 2025-03-21 13:04 | XMS_ITS | Clinical Summary ---
Author Organization [facility] Address [address] [facility] [place] [address] Care Team Providers Care Fringe Knotter Name Role Phone Max Carpenter MD Unavailable [phone] Source Comments [facility],non-owned Affiliates and Associated Physician Practices is amultiple site organization consisting of ambulatory clinics and hospital sitesin [place], [place], [place] and [place]. This disclosure is being madepursuant to the [...] on file Legal Sex Female 6:12 AM HARDWOOD FLOOR SANDER Gender Identity Not on file Sexual Orientation Not on file Last Filed Vital Signs Vital Sign Reading Time Taken Comments Blood Pressure 134/68 07/22/2011 4:17 PM HARDWOOD FLOOR SANDER Pulse 81 07/22/2011 4:17 PM HARDWOOD FLOOR SANDER Temperature 36.9 C (98.5 F) 07/22/2011 4:17 PM HARDWOOD FLOOR SANDER Respiratory Rate 18 07/22/2011 4:17 PM HARDWOOD FLOOR SANDER Oxygen Saturation 96% 07/22/2011 4:17 PM HARDWOOD FLOOR SANDER Inhaled Oxygen Concentration - - Weight 104.3 kg (230 lb) 07/22/2011 6:45 AM HARDWOOD FLOOR SANDER Height 160 cm (5' 3) 07/22/2011 6:45 AM HARDWOOD FLOOR SANDER Body Mass Index 40.74 07/22/2011 6:45 AM HARDWOOD FLOOR SANDER Plan of Treatment Health Maintenance Due Date [...] age to complete this topic Insurance [employer] [facility] AETNA MEDICARE ADV SELF PAY NO INSURANCE Member Subscriber Plan / Payer (Ef fective for All Dates) Name:Laura Valenzuela Member ID:Not on file Relation to Subscriber:Not on file Name:LAURA VALENZUELA Subscriber ID:Not on file Address: [address] [place] [address] [place] [address] Payer ID:Not on file Group ID:Not on file Type:Self Pay Address: [place], [place] Advance Directives * FULL RESUSCITATION (Latest Code Status on File) Date Activated Date Inactivated Comments 07/22/2011 12:27 PM 07/23/2011 6:58 AM Care Teams Fringe Knotter Relationship Specialty Start Date End Date Max Carpenter MD Physician Rheumatology 08/10/11
--- OUTSIDE RECORDS SUMMARY | 2025-03-21 13:04 | XMS_ITS | Referral Summary ---
Author Organization [facility] Address [address] [place] [address] Care Team Providers Care Churn Driller Name Role Phone Parminder Rojas MD Primary Care Provider [phone] Yannick Guevara MD Unavailable [phone] Ayde Peña MD Unavailable [phone] Encounters Date Type Department Care Team Description 03/14/2025 7:30 PM CDT - 03/14/2025 11:59 PM CDT Hospital Encounter [address] [address] Discharge Disposition: Discharge to home or self care 03/02/2025 4:38 PM CDT - 03/02/2025 11:59 PM CDT Hospital Encounter [address] [address] Discharge Disposition: Discharge to home [...] on file Legal Sex Female 2:00 AM BINITROTOLUENE OPERATOR Gender Identity Not on file Sexual Orientation Not on file Last Filed Vital Signs Vital Sign Reading Time Taken Comments Blood Pressure 161/74 08/26/2024 1:13 PM BINITROTOLUENE OPERATOR Pulse 63 08/26/2024 1:13 PM BINITROTOLUENE OPERATOR Temperature 36.1 C (96.9 F) 08/06/2021 1:42 PM BINITROTOLUENE OPERATOR Respiratory Rate 16 07/20/2024 9:06 AM BINITROTOLUENE OPERATOR Oxygen Saturation 92% 07/20/2024 9:06 AM BINITROTOLUENE OPERATOR Inhaled Oxygen Concentration - - Weight 81.6 kg (180 lb) 09/14/2024 12:16 PM BINITROTOLUENE OPERATOR Height 154.9 cm (5' 1) 09/14/2024 12:16 PM BINITROTOLUENE OPERATOR Body Mass Index 34.01 09/14/2024 12:16 PM BINITROTOLUENE OPERATOR Plan of Treatment Not on file [...] Bilirubin, direct 0.3 0.1 - 0.3 mg/dL [facility] Protein, pl 6.6 6.5 - 8.5 g/dL [facility] Albumin 3.8 3.5 - 5.0 g/dL [facility] Alk phos 390(H) 40 - 130 Units/L [facility] ALT 78(H) 7 - 45 Units/L [facility] AST 74(H) 10 - 45 Units/L [facility] Blood 03/14/2025 1:36 PM CDT 03/14/2025 8:52 PM CDT Filippo Carpenter MD LAB BLOOD ORDERABLES Fin al Result Performing Organization Address [facility]/ZIP Co de Phone Number [facility] [address] Department [place] [address] * eGFR (03/02/2025 11:04 AM CDT) Pathologist [facility] eGFR >90 >=60 mL/min/1. 73 m2 Comment: [...] ORDERABLES Fin al Result Performing Organization Address City/[facility]/ZIP Co de Phone Number [facility] [address] Department of [employer] [place], [place] [address] * (ABNORMAL) Differential, auto (03/02/2025 11:04 AM CDT) Pathologist [facility] Neutrophil abs 4.90 1.50 - 6.50 K/cumm Imm gran abs 0.05 0.00 - 0.10 K/cumm [facility] Lymphocyte abs 1.39 0.80 - 3.30 K/cumm [facility] Monocyte abs 1.04(H) 0.20 - 0.80 K/cumm [facility] Eosinophil abs 0.45 0.00 - 0.50 K/cumm [facility] Basophil abs 0.10 0.00 - 0.10 K/cumm [facility] Neutrophil pct 61.8 % [facility] Comment: Interpretive Data Percent cell count reference ranges are not reported, since discordance with absolute values may lead to misinterpretation of CBC data. Current Interpretive Data was last revised on 2017. Imm gran pct 0.6 % [facility] Comment: Interpretive Data Percent cell count reference ranges are not reported, since discordance with absolute values may lead to misinterpretation of CBC data. Current Interpretive Data was last revised on 2017. Lymphocyte pct 17.5 % [facility] Comment: Interpretive Data Percent cell count reference ranges are not reported, since discordance with absolute values may lead to misinterpretation of CBC data. Current Interpretive Data was last revised on 2017. Monocyte pct 13.1 % [facility] Comment: Interpretive Data Percent cell count reference ranges are not reported, since discordance with absolute values may lead to misinterpretation of CBC data. Current Interpretive Data was last revised on 2017. Eosinophil pct 5.7 % [facility] Comment: Interpretive Data Percent cell count reference ranges are not reported, since discordance with absolute values may lead to misinterpretation of CBC data. Current Interpretive Data was last revised on 2017. Basophil pct 1.3 % [facility] Comment: Interpretive Data Percent cell count reference ranges are not reported, since discordance with absolute values may lead to misinterpretation of CBC data. Current Interpretive Data was last revised on 2017. Blood 03/02/2025 11:0 4 AM CDT 03/02/2025 6:14 PM CDT us Filippo Carpenter MD LAB BLOOD ORDERABLES Fin al Result [facility] [address] Department [place] [address] * (ABNORMAL) CBC with auto differential (03/02/2025 11:04 AM CDT) Pathologist [facility] WBC 7.93 3.80 - 9.90 K/cumm Hgb 12.3 11.9 - 15.5 g/dL [facility] Hct 39.5 35.6 - 45.5 % [facility] Plt 268 150 - 400 K/cumm [facility] MPV 12.3 9.1 - 12.3 fL [facility] RBC 4.28 3.90 - 5.20 M/cumm [facility] MCV 92.3 81.3 - 96.4 fL [facility] MCH 28.7 27.1 - 33.3 pg [facility] MCHC 31.1(L) 32.3 - 35.7 g/dL [facility] RDW CV 16.5(H) 11.1 - 14.9 % [facility] RDW SD 53.5(H) 35.7 - 48.1 fL [facility] NRBC abs 0.00 0.00 - 0.01 K/cumm [facility] Blood 03/02/2025 11:0 4 AM CDT 03/02/2025 6:14 PM CDT us Filippo Carpenter MD LAB BLOOD ORDERABLES Fin al Result Performing Organization Address [facility] Co de Phone Number [facility] [address] [place] [address] * Creatinine (03/02/2025 11:04 AM CDT) [facility] Creatinine 0.69 0.60 - 1.10 mg/dL Blood 03/02/2025 11:0 4 AM CDT 03/02/2025 6:14 PM CDT Filippo Carpenter MD LAB BLOOD ORDERABLES Fin al Result Performing Organization Address City/[facility]/ZIP Co de Phone Number [facility] [address] Department [place] [address] * (ABNORMAL) Hepatic function panel (03/02/2025 11:04 AM CDT) Bilirubin, total 0.7 0.1 - 1.2 mg/dL Bilirubin, direct 0.4(H) 0.1 - 0.3 mg/dL [facility] Protein, pl 6.5 6.5 - 8.5 g/dL [facility] Albumin 3.5 3.5 - 5.0 g/dL [facility] Alk phos 357(H) 40 - 130 Units/L [facility] ALT 88(H) 7 - 45 Units/L [facility] AST 78(H) 10 - 45 Units/L [facility] Blood 03/02/2025 11:0 4 AM CDT 03/02/2025 6:14 PM CDT us Filippo Carpenter MD LAB BLOOD ORDERABLES Fin al Result [facility] [address] Department [place] [address] from Last 3 Months Insurance Placed PPO [employer] PPO Care Teams Churn Driller Relationship Specialty Start Date End Date Parminder Rojas MD PCP - General 01/19/14 Yannick Guevara MD [address] [facility] [phone] [place] [address] Surgeon Colon and Rectal Surgery 02/07/21 Ayde Peña MD [address] [facility] [address] [place] [address] Referring Physician Family Medicine 02/07/21
--- OUTSIDE RECORDS SUMMARY | 2025-03-21 13:04 | XMS_ITS | Encounter Summary ---
Author Organization [facility] Health Address [address] [facility] [place] [address] Care Team Providers Care Trust Administrator Name Role Phone Filippo Carpenter MD Unavailable [phone] Encounter Details Date Type Department Care Team (Late st Contact Info) Description 01/27/2019 Lab Requisition [facility] [address] [facility], [place] [address] Bettina Espino DO [address] [facility] 3 [place] [address] Social History Tobacco Use Types Packs/Day Years Used Date Smoking Tobacco: Never Alcohol Use Standard Drinks/Week Comments No 0 (1 standard drink = 0.6 oz pur e alcohol) Comments No Sex and Gender Information Value Date Recorded Sex Assigned at Not on file Legal Sex Female 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 Jar 0. 12:24 PM CDT DERMATOPATHOLOGY LABORATORY [...] characteristic determined by the Dermatopathology Laboratory at [facility], directed by Dr. Krys Villagran. These tests need not be, and therefore are not, approved by the [place] Food and Drug Administration. The tests are used for clinical purposes. Billing Codes Specimen Charges Stain Charges 73288 1 12:24 PM CDT DERMATOPATHOLOGY LABORATORY Embedded Images 12:24 PM CDT DERMATOPATHOLOGY LABORATORY Pathology/Cytolog y TISSUE SPECIMEN FROM SKIN / Unknown 01/26/2019 01/27/2019 10:42 AM CDT Bettina Espino DO LAB - PATHOLOGY/CYTOLOGY ORDERABLES Final Result DERMATOPATHOLOGY LABORATORY [facility] - Department of Dermatology [address] [place] [address], 5th Floor Lab [address] [phone] documented in this encounter Visit Diagnoses Not on filedocumented in this encounter Care Teams Trust Administrator Relationship Specialty Start Date End Date Filippo Carpenter MD Physician Rheumatology 08/10/11 documented as of this encounter
== END 2025-03-21 13:00 | disposition home or self-care (01) ==
LOC: ANHAUDIO 13:00
PROVIDERS: PCP Family Medicine; Visit Provider Nurse Practitioner Adult Health
DX: H90.3 Sensorineural hearing loss, bilateral (principal)
CPT/HCPCS: 92557; 92567

== ENCOUNTER 2025-04-27 10:57 | Inpatient (IN) | payer OTHER, SELFPAY ==
--- OUTSIDE RECORDS SUMMARY | 2016-08-26 08:00 | XMS_ITS | Continuity of Care Document ---
Author Organization [facility] Address [address] [place] [address] Phone Care Team Providers Care Medical Microbiologist Name Role Phone Chris Kingsley MD Unavailable Unavailable Advance Directives Directive Yes / No Effective Date File Name No Information Encounters Encounter Description Practice Location Reason(s) For Visit Diagnoses Date Provider Providers Copied on Encounter [facility], [address], [place], [place], [id number], [place] tel:[phone] [facility] No Information Sancho Perez. [address] , [place], [place], [id number], [place]. tel:[phone] Referring Provider: Riky Sherman, [address], [place], [address]. tel:[phone] Family History Family Member Type Diagnosis Age At Onset No Information Payers Payer name Insurance type Covered republican ID Authoriza tion(s) AET[employer] MDCR ADVANTRA HMO POS [place] [id number] Social History Type Description Quantity Date Captured Comments Sex Female Smoking Status No Information Chief Complaint And Reason For Visit No Information Reason For Referral Reason For Referral No Information History Of Present Illness Encounter Date Complaint History Of Prese nt Illness No Information Functional Status Date Functional Assessmen t No Information Instructions Date Instruction Additional Infor mation No Information Assessments Type Assessment Date No Information Patient Care Teams Name Effective Dates (start - stop) Status Members No Information
[2025-04-27] VITALS (42 sets, daily range): BP systolic 121–148; BP diastolic 55–115; PULSE 80–110; RESP 16–33; TEMP 36.2–36.8; O2SAT 85–97; BMI 30.4
--- NOTE | ~2025-04-27 | MR_ITS ---
EXAMINATION: MR brain/brain stem wo con DATE: 04/30/2025 12:17 INDICATION: Confusion. Motor skills difficulties. TECHNIQUE: Magnetic resonance imaging (MRI) of the brain and brainstem was performed without intravenous contrast. Sequences included sagittal and axial T1-weighted SE, axial diffusion-weighted FS SE, axial T2*-weighted GRE, axial T2-weighted FLAIR, and axial T2-weighted FSE. Apparent diffusion coefficient (ADC) maps were created. COMPARISON: 01/08/2022 FINDINGS: There are no areas of restricted diffusion to suggest acute infarction. No intracranial hemorrhage or abnormal intracranial mass lesion. There are scattered areas of nonspecific increased T2-weighted signal intensity in the pontine and cerebral white matter, predominantly involving the deep and periven tricular white matter. There are no intraparenchymal signal abnormalities seen on the other pulse sequences. Symmetric prominence of the sulci and ventricles consistent with mild age-appropriate diffuse cerebral volume loss. There are no abnormal extra-axial fluid collections. Flow voids are seen in the cerebral arteries on the T2-weighted sequences consistent with their expected patency. Left vertebral artery is dominant. Changes of bilateral intraocular lens replacement. Visualized orbits and soft tissues are unremarkable. IMPRESSION: 1. Normal aging brain with mild diffuse volume loss and moderate scattered mesenteric periventricular predominant white matter T2 hyperintensity consistent with chronic small vessel ischemic disease. No acute intracranial process. Reviewed, dictated and finalized at location A. IMPRESSION: 1. Normal aging brain with mild diffuse volume loss and moderate scattered mese nteric periventricular predominant white matter T2 hyperintensity consistent wi th chronic small vessel ischemic disease. No acute intracranial process.
--- NOTE | ~2025-04-27 | MR_ITS ---
EXAMINATION: MR lumbar spine wo con DATE: 05/02/2025 10:08 INDICATION: Lumbosacral radiculopathy TECHNIQUE: Magnetic resonance imaging (MRI) of the lumbar spine was performed without intravenous contrast. Sequences included sagittal T2-weighted FSE, sagittal T2-weighted FS FSE, sagittal T1-weighted FSE, and axial T2-weighted FSE. COMPARISON: None FINDINGS: 1-2 mm retrolisthesis T12-L1 and L1-L2. Chronic mild anterior wedging at T11-L1. Severe disc height loss at L2-L3, L3-L4 and L4-L5 with associated T1 hyperintense fibrofatty degenerative endplate changes. Marrow signal is otherwise normal. Mild disc height loss at L5-S1. Postoperative change of prior left hemilaminotomies at L3-L4 and L4-L5. The conus medullaris terminates at L2. There is normal signal in the caudal spinal cord. Paravertebral soft tissues are unremarkable. The following disc levels are specifically discussed: T12-L1: Disc is bulging. There is mild left and moderate right facet joint osteoarthritis. There is no neural foraminal stenosis. There is mild central canal stenosis. L1-L2: Disc is mildly bulging There is mild left and moderate right facet joint osteoarthritis. There is no neural foraminal stenosis. There is mild central canal stenosis. L2-L3: Disc is bulging with annular fissures There is altered left and severe right facet joint osteoarthritis. There is mild bilateral neural foraminal stenosis. There is severe central canal stenosis with nearly indiscernible CSF signal surrounding the centrally clustered nerve roots. L3-L4: Disc is bulging with annular fissure There is severe bilateral facet joint osteoarthritis. There is moderate bilateral neural foraminal stenosis. There is moderate to severe central canal stenosis despite posterior decompression. L4-L5: Disc is bulging with annular fissure. There is severe bilateral facet joint osteoarthritis. There is moderate bilateral neural foraminal stenosis. There is moderate to severe central canal stenosis despite posterior decompression. L5-S1: Disc is bulging with annular fissure. There is severe bilateral facet joint osteoarthritis. There is mild to moderate left and moderate right neural foraminal stenosis. There is mild central canal stenosis with moderate narrowing of the right lateral recess. IMPRESSION: 1. Severe lumbar spondylosis with severe central canal stenosis at L2-L3 and moderate to severe central canal stenosis at L3-L4 and L4-L5 despite posterior decompression with left hemilaminotomy superimposed of these levels. Reviewed, dictated and finalized at location A. IMPRESSION: 1. Severe lumbar spondylosis with severe central canal stenosis at L2-L3 and mo derate to severe central canal stenosis at L3-L4 and L4-L5 despite posterior de compression with left hemilaminotomy superimposed of these levels.
--- NOTE | ~2025-04-27 | MR_ITS ---
EXAMINATION: MR thoracic spine wo con DATE: 05/02/2025 10:09 INDICATION: Weakness in the bilateral lower limbs TECHNIQUE: Magnetic resonance imaging (MRI) of the thoracic spine was performed without intravenous contrast. Sagittal localizer T1-weighted FSE of the cervicothoracic spine was obtained. Thoracic spine sequences included sagittal T2-weighted FSE, sagittal T1-weighted SE, Sagittal T2-weighted FS FSE, and axial T2-weighted FSE. COMPARISON: Chest CT dated 12/21/2024 FINDINGS: Alignment is normal.Unchanged chronic minimal to mild anterior wedging at T7- T12. Normal marrow signal.Moderate disc height loss at T5-T6 through T7-T8 and at T9-T10 and T10-T11.There is mild disc height loss at the remaining levels from T1 to T2 through T12-L1. Annular fissures with right paracentral disc extrusion at C5-6, T6-T7, central disc extrusions at T7-T8 and T9-T10 and left paracentral disc extrusion at T10-T11. There are additional smaller disc bulges or disc protrusions at T1-T2, T2-T3, T3-T4, T4-T5, T11-T12 and T12-L1. There is multilevel mild to moderate facet osteoarthritis throughout the thoracic spine. There is also hypertrophy of the ligamentum flavum, some with secondary heteroto pic ossification but appreciated on prior CT. This most prominent at T6-T7, T8- T9 and at T11-T12. Together this results in multilevel central canal stenosis, mild to moderate severity at T10-T11 and mild at the majority of the remaining levels most prominent at the level of the disc extrusions which indent the ventral surface of the cord at T5-T6, T6-T7, T7-T8 and T9-T10. There is normal spinal cord signal. The conus terminates at L2. Small bilateral pleural effusions. Patchy lung disease in both lungs suspicious for pneumonia. IMPRESSION: 1. Moderate thoracic spondylosis. 2. Bilateral lung disease suspicious for pneumonia with small bilateral pleural effusions. Reviewed, dictated and finalized at location A.
--- NOTE | ~2025-04-27 | XR_ITS ---
EXAMINATION: XR chest 2V 04/27/2025 13:26 INDICATION: Weakness and shortness of breath. Difficulty walking. PROCEDURE: 2 view chest COMPARISON: Comparison to multiple prior studies sequentially, with oldest reviewed study dated . FINDINGS: Chronic apical infiltrates unchanged compared with studies dating back to 12/16/2024. Status post median sternotomy for CABG. There is prosthetic heart valve. The cardiomediastinal silhouette is within normal limits. There are no pleural effusions. There is no pneumothorax suspected. IMPRESSION: 1: Chronic apical infiltrates which may represent atypical pneumonia, fibrosis or scarring. Reviewed, dictated and finalized at location O.
--- NOTE | ~2025-04-27 | MR_ITS ---
EXAMINATION: MR cervical spine wo con DATE: 05/02/2025 10:10 INDICATION: Cervical radiculopathy TECHNIQUE: Magnetic resonance imaging (MRI) of the cervical spine was performed without intravenous contrast. Sequences included sagittal T2-weighted FSE, sagittal T2-weighted FS FSE, sagittal T1-weighted FSE, axial MERGE and axial T2- weighted FSE. COMPARISON: None FINDINGS: Bone alignment is normal. C5-C6 anterior spinal fusion with anterior plate and screw fixation. Vertebral body heights are normal. Bone marrow signal intensity is normal. Severe disc height loss at C6-C7. Mild disc height loss at C3-C4, C4- C5 and C7-T1 through T2-T3. Cord signal intensity is normal. Nonspecific biapical lung disease. Visualized cervical soft tissues are unremarkable. The following disc levels are specifically discussed: C2-C3: Eccentric to the right posterior disc osteophyte complex which indents the right ventral surface of the cord. There is moderate bilateral uncovertebral joint osteoarthritis. There is moderate right and severe left facet joint osteoarthritis. There is mild left and moderate right neural foraminal stenosis. There is mild central canal stenosis. C3-C4: Disc is bulging with annular fissure. There is moderate right and severe left uncovertebral joint osteoarthritis. There is mild right and severe left facet joint osteoarthritis. There is moderate right and severe left neural foraminal stenosis. There is severe central canal stenosis measuring 5 mm AP in the mid sagittal plane with deformation and decreased cross-sectional diameter of the cord. C4-C5: Disc is bulging. There is mild right and moderate left uncovertebral joint osteoarthritis. There is mild right and severe left facet joint osteoarthritis. There is mild right and mild to moderate left neural foraminal stenosis. There is mild central canal stenosis. C5-C6: Disc space is fused with mild hypertrophic endplate osteophytes and moderate hypertrophic changes along the fused bilateral uncovertebral joints. There is mild right and moderate left facet joint osteoarthritis. There is moderate bilateral neural foraminal stenosis. There is mild central canal s tenosis. C6-C7: Posterior disc osteophyte complex. There is severe bilateral uncovertebral joint osteoarthritis. There is moderate bilateral facet joint osteoarthritis. There is mild left and moderate right neural foraminal stenosis. There is mild central canal stenosis. C7-T1: Disc is mildly bulging with superimposed right paracentral disc protrusion. There is mild bilateral uncovertebral joint osteoarthritis. There is moderate bilateral facet joint osteoarthritis. There is mild bilateral neural foraminal stenosis. There is mild central canal stenosis. IMPRESSION: 1. Severe cervical spondylosis most notable for severe central canal and severe left and moderate right neural foraminal stenosis at C3-C4. 2. Instrumented C5-C6 anterior spinal fusion. Reviewed, dictated and finalized at location A.
--- NOTE | ~2025-04-27 | CT_ITS ---
EXAMINATION: CTA BRAIN/CAROTID DATE: 04/30/2025 11:57 INDICATION: Confusion TECHNIQUE: Computed tomographic angiography (CTA) of the head and neck was performed with 100 mL Omnipaque-350 intravenous contrast. Multiplanar reconstructions and maximum intensity projection 3D-reconstructions of the carotid arteries and of the intracranial arteries were created by the technologist on a separate workstation. Precontrast CT of the head was also obtained. Automated exposure control and iterative reconstruction technique were employed.The dose-length product was 966.15 mGy-cm. COMPARISON: Brain MR dated 01/08/2022 and PET/CT dated 02/09/2020 FINDINGS: Head: No acute intracranial hemorrhage, acute infarction or abnormal extra axial fluid collection. There is moderate scattered white matter hypoattenuation consistent with chronic small vessel ischemic disease. Symmetric prominence of the sulci consistent with mild age-appropriate diffuse cerebral volume loss. Ventricles are normal and symmetric. No mass/mass effect. No abnormally enhancing brain lesions on the postcontrast imaging. The orbits, paranasal sinuses and mastoid air cells are normal. Intracranial arteries Left vertebral artery is dominant. Nonhemodynamically significant atherosclerotic calcifications at the bilateral carotid bulbs. There is no hemodynamically significant stenosis in the vertebral, basilar and internal carotid arteries. Both A1 and P1 segments are patent. There is a patent intercommunicating artery and patent bilateral posterior communicating arteries. There are no aneurysms identified. Cerebral arterial arborization appears symmetric. Carotid arteries: There is 30% stenosis of the right carotid bulb relative to normal distal artery lumen diameter (NASCET criteria). There is small amount of atherosclerotic plaque with 0% stenosis of the left carotid bulb relative to normal distal artery lumen diameter. Left vertebral artery appears normal throughout its cervical course with no evident hemodynamically significant stenosis. The right vertebral artery is likely occluded at its origin with reconstitution more distally at the level of the ring of C1. Prominent reticulonodular opacities and patchy consolidation in the visualized bilateral upper lungs consistent with multifocal pneumonia. Moderate to severe spondylosis at the lower cervical and upper thoracic spine with C6-C7 anterior spinal fusion with interbody bone graft and anterior plate-screw fixation. IMPRESSION: 1. Age-related changes the brain with mild diffuse volume loss and moderate scattered white matter hypoattenuation consistent with chronic small vessel ischemic disease. No acute intracranial process or abnormally enhancing brain lesion. 2. 30% stenosis of the right carotid bulb relative to normal distal artery lumen diameter (NASCET criteria). 3. Small amount of atherosclerotic plaque with 0% stenosis of the left carotid bulb relative to normal distal artery lumen diameter. 4. 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 5. Unremarkable cerebral CT angiogram with no thrombosis, hematoma significant stenosis or aneurysm. 6. Multifocal pneumonia in the upper lungs. Reviewed, dictated and finalized at location A. IMPRESSION: 1. Age-related changes the brain with mild diffuse volume loss and moderate sca ttered white matter hypoattenuation consistent with chronic small vessel ischem ic disease. No acute intracranial process or abnormally enhancing brain lesion. 2. 30% stenosis of the right carotid bulb relative to normal distal artery lume n diameter (NASCET criteria). 3. Small amount of atherosclerotic plaque with 0% stenosis of the left carotid bulb relative to normal distal artery lumen diameter. 4. 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 5. Unremarkable cerebral CT angiogram with no thrombosis, hematoma significant stenosis or aneurysm. 6. Multifocal pneumonia in the upper lungs.
--- NOTE | ~2025-04-27 | CT_ITS ---
EXAMINATION: CT cervical spine wo con DATE: 05/07/2025 17:01 INDICATION: Further assess cervical spondylosis TECHNIQUE: Computed tomography (CT) of the cervical spine was performed without intravenous contrast. Automated exposure control and iterative reconstruction technique were employed. The dose-length product was 510.60 mGy-cm. COMPARISON: None FINDINGS: C5-C6 anterior spinal fusion with incorporated bone graft at the disc space and anterior plate and screw fixation. Alignment is normal. Moderate to severe osteoarthritis at the atlantoaxial articulation. Vertebral body heights are normal. No fracture. Severe disc height loss at C6-C7. Moderate disc height loss at C7-T1 and mild disc height loss at C2-C3 through C4-C5 and at the visualized upper thoracic levels. Prominent tree-in-bud opacities in mid bilateral visualized upper lungs suspicious for pneumonia. Atherosclerotic calcifications at the bilateral carotid bulbs. Mild bilateral mastoid effusions. Atherosclerotic calcifications at the bilateral carotid siphons. The following disc levels are specifically discussed: C2-C3: Posterior disc osteophyte complex with right paracentral disc protrusion. There is moderate right and severe left uncovertebral joint osteoarthritis. There is moderate right and severe left facet joint osteoarthritis. There is mild right and moderate left neural foraminal stenosis. There is mild central canal stenosis. C3-C4: Disc is bulging. There is moderate right and severe left uncovertebral joint osteoarthritis. There is mild right and severe left facet joint osteoarthritis. There is moderate right and severe left neural foraminal stenosis. There is severe central canal stenosis which measures 6 mm AP in the mid sagittal plane. C4-C5: Disc is bulging. There is mild right and moderate left uncovertebral joint osteoarthritis. There is mild right and severe left facet joint osteoarthritis. There is mild right and moderate left neural foraminal stenosis. There is mild central canal stenosis. C5-C6: Disc space is fused with hypertrophic change along the facet joints and posterior endplates. There is mild right and moderate left facet joint osteoarthritis. There is moderate bilateral neural foraminal stenosis. There is mild central canal stenosis. C6-C7: Posterior disc osteophyte complex. There is severe bilateral uncovertebral joint osteoarthritis. There is moderate bilateral facet joint osteoarthritis. There is mild left and moderate right neural foraminal stenosis. There is mild central canal stenosis. C7-T1: Small disc bulge and superimposed right paracentral disc protrusion evident on prior MRI are obscured on the current study by mild streak artifact from the shoulders. There is mild bilateral uncovertebral joint osteoarthritis. There is moderate bilateral facet joint osteoarthritis. There is mild bilateral neural foraminal stenosis. There is no stenosis of the osseous central canal stenosis. The mild stenosis resulting from the disc bulge and protrusion on MRI is obscured. IMPRESSION: 1. Severe cervical spondylosis with instrumented C5-C6 anterior spinal fusion. 2. Prominent tree-in-bud opacities in the visualized bilateral upper lung zones consistent with pneumonia. Reviewed, dictated and finalized at location A.
--- NOTE | ~2025-04-27 | XR_ITS ---
EXAMINATION:XR cervical spine 4-5V DATE: 05/07/2025 18:16 INDICATION: Cervical spondylosis TECHNIQUE: AP, lateral, lateral flexion, lateral extension and odontoid views of the cervical spine are provided. COMPARISON: Cervical spine CT dated 05/07/2025 and MRI dated 05/02/2025 FINDINGS: Mild cervical dextrocurvature. Odontoid is intact. Normal atlantoaxial interval. Assessment on the lateral projection is a somewhat limited by position of the patient's shoulders with the left shoulder projecting over the cervical spine. There is a reverse right total shoulder arthroplasty which projects more caudally over the upper thoracic spine and upper lung. C5-C6 anterior spinal fusion with anterior plate and screw fixation. The vertebral endplates and disc spaces in the mid to lower cervical and upper thoracic spine are partially obscured. Severe disc height loss at C6-C7. Mild disc height loss at C2-C3 through C4-C5. No spondylolisthesis. There is mild cervical hypomobility without abnormal translatory motion on flexion and extension.. There is multilevel severe facet and uncovertebral osteoarthritis. Prevertebral soft tissues are normal. Median sternotomy wires and mediastinal surgical clips are seen, likely from prior coronary artery bypass grafting. IMPRESSION: 1. Severe cervical spondylosis with C5-6 instrumented anterior spinal fusion. 2. Cervical hypomobility with flexion and extension but no spondylolisthesis or abnormal translatory motion Reviewed, dictated and finalized at location A.
--- OUTSIDE RECORDS SUMMARY | 2025-04-27 11:02 | XMS_ITS | Patient Health Record ---
Author Organization [facility] Address [address] [place] [address] Care Team Providers Care Federal Appellate Law Clerk Name Role Phone Sammie RONDON, Parminder Primary Care Provider Unavail able Filippo Jenkins Unavailable [phone] Allergies Allergen (clinical drug ingredient) Drug/Non Drug Allergy documented on EMR Reaction Allergy Type Onset Date Status Amoxicillin ER Unknown Drug Allergy Ac tive codeine Codeine Unknown Drug Allergy 11/05/2004 Active Results Component Value Reference Range Notes CBC w auto diff Reviewed date:05/25/2024 06:19:32 AM Interpretation: Performing Lab:[facility] , [facility]. [facility] [address] Notes/Report: WBC 7.1 3.8-9.9 K/cumm Hgb 13.4 11.9-15.5 g/dL Hct 44.7 35.6-45.5 % Platelet Ct 271 150-400 K/cumm MPV 12.6 9.1-12.3 fL RBC 4.84 3.90-5.20 M/cumm MCV 92.4 81.3-96.4 fL MCH 27.7 27.1-33.3 pg MCHC 30.0 32.3-35.7 g/dL RDW CV 16.7 11.1-14.9 % RDW SD 55.3 35.7-48.1 fL NRBC Abs Auto 0.00 0.00-0.01 K/cumm Creatinine Reviewed date:05/25/2024 06:16:23 AM Interpretation: Performing Lab:[facility] , [address] [facility]. [facility] [address] Notes/Report: Creatinine 0.80 0.60-1.10 mg/dL Hep Func Panel Reviewed date:05/25/2024 06:15:44 AM Interpretation: Performing Lab:[facility] , [address] [place] [address]. [facility] [address] Notes/Report: Total Bilirubin 0.5 0.1-1.2 mg/dL Bilirubin, Direct 0.2 0.1-0.3 mg/dL Plasma Total Protein 6.8 6.5-8.5 g/dL Albumin 4.1 3.5-5.0 g/dL Alkaline Phosphatase 58 40-130 Units/L ALT 11 7-45 Units/L AST 16 10-45 Units/L eGFR Reviewed date:03/04/2025 09:01:05 AM Interpretation: Performing Lab:[facility] , [address] [place] [address]. [facility] [address] Notes/Report: eGFR >90 >=60 mL/min/1.73 m2 Interpretive [...] Automated Reviewed date:03/04/2025 09:00:49 AM Interpretation: Performing Lab:[facility] , [address] [place] [address]. [facility] [address] Notes/Report: Neut Abs 4.90 1.50-6.50 K/cumm ImmGran Abs 0.05 0.00-0.10 K/cumm Lymphocyte Abs 1.39 0.80-3.30 K/cumm Wood Abs 1.04 0.20-0.80 K/cumm Eos Abs 0.45 [...] Interpretive Data was last revised on 2017. Wood Pct 13.1 Interpretive Data Percent cell count [...] eGFR Reviewed date:09/03/2024 03:29:31 PM Interpretation: Performing Lab:[facility] , [address] [place] [address]. [facility] [address] Notes/Report: eGFR >90 >=60 mL/min/1.73 m2 Interpretive [...] Automated Reviewed date:09/03/2024 03:29:31 PM Interpretation: Performing Lab:[facility] , [address] [place] [address]. [facility] [address] Notes/Report: Neut Abs 4.5 1.5-6.5 K/cumm ImmGran Abs 0.0 0.0-0.1 K/cumm Lymphocyte Abs 1.3 0.8-3.3 K/cumm Wood Abs 0.8 0.2-0.8 K/cumm Eos Abs 0.1 [...] Interpretive Data was last revised on 2017. Wood Pct 12.1 Interpretive Data Percent cell count [...] eGFR Reviewed date:05/25/2024 06:17:27 AM Interpretation: Performing Lab:[facility] , [address] [place] [address]. [place] [address] Notes/Report: eGFR 78 >=60 mL/min/1.73 m2 Interpretive [...] Automated Reviewed date:05/25/2024 06:17:21 AM Interpretation: Performing Lab:[facility] , [address] [place] [address]. [place] [address] Notes/Report: Neut Abs 4.7 1.5-6.5 K/cumm ImmGran Abs 0.0 0.0-0.1 K/cumm Lymphocyte Abs 1.2 0.8-3.3 K/cumm Wood Abs 0.8 0.2-0.8 K/cumm Eos Abs 0.2 [...] Interpretive Data was last revised on 2017. Wood Pct 11.6 Interpretive Data Percent cell count [...] Panel Reviewed date:09/03/2024 03:29:31 PM Interpretation: Performing Lab:[facility] , [address] [place] [address]. [facility] [address] Notes/Report: Total Bilirubin 0.4 0.1-1.2 mg/dL Bilirubin, Direct 0.2 0.1-0.3 mg/dL Plasma Total Protein 6.2 6.5-8.5 g/dL Albumin 4.1 3.5-5.0 g/dL Alkaline Phosphatase 50 40-130 Units/L ALT 16 7-45 Units/L AST 18 10-45 Units/L Creatinine Reviewed date:09/03/2024 03:29:31 PM Interpretation: Performing Lab:[facility] , [address] [place] [address]. [place] [address] Notes/Report: Creatinine 0.68 0.60-1.10 mg/dL CBC w auto diff Reviewed date:09/03/2024 03:29:31 PM Interpretation: Performing Lab:[facility] , [address] [place] [address]. [place] [address] Notes/Report: WBC 6.8 3.8-9.9 K/cumm Hgb 13.9 11.9-15.5 g/dL Hct 43.6 35.6-45.5 % Platelet Ct 259 150-400 K/cumm MPV 12.1 9.1-12.3 fL RBC 4.61 3.90-5.20 M/cumm MCV 94.6 81.3-96.4 fL MCH 30.2 27.1-33.3 pg MCHC 31.9 32.3-35.7 g/dL RDW CV 16.0 11.1-14.9 % RDW SD 54.6 35.7-48.1 fL NRBC Abs Auto 0.00 0.00-0.01 K/cumm eGFR Reviewed date:12/01/2024 12:56:10 PM Interpretation: Performing Lab:[facility] , [address] [facility]. [place] [address] Notes/Report: eGFR 86 >=60 mL/min/1.73 m2 Interpretive [...] Automated Reviewed date:12/01/2024 12:56:18 PM Interpretation: Performing Lab:[facility] , [address] [facility] [place] [address] Notes/Report: Neut Abs 4.61 1.50-6.50 K/cumm ImmGran Abs 0.05 0.00-0.10 K/cumm Lymphocyte Abs 1.45 0.80-3.30 K/cumm Wood Abs 0.88 0.20-0.80 K/cumm Eos Abs 0.26 [...] Interpretive Data was last revised on 2017. Wood Pct 12.0 Interpretive Data Percent cell count [...] yet revi ewed by provider) Interpretation: Performing Lab:[facility] , [address] [place] [address] Notes/Report: Total Bilirubin 0.6 0.1-1.2 mg/dL Bilirubin, Direct 0.3 0.1-0.3 mg/dL Plasma Total Protein 6.6 6.5-8.5 g/dL Albumin 3.8 3.5-5.0 g/dL Alkaline Phosphatase 390 40-130 Units/L ALT 78 7-45 Units/L AST 74 10-45 Units/L Hep Func Panel Reviewed date:12/01/2024 12:55:55 PM Interpretation: Performing Lab:[facility] , [address] [facility]. [place] [address] Notes/Report: Total Bilirubin 0.4 0.1-1.2 mg/dL Bilirubin, Direct 0.2 0.1-0.3 mg/dL Plasma Total Protein 6.4 6.5-8.5 g/dL Albumin 3.6 3.5-5.0 g/dL Alkaline Phosphatase 53 40-130 Units/L ALT 14 7-45 Units/L AST 17 10-45 Units/L Creatinine Reviewed date:12/01/2024 12:56:00 PM Interpretation: Performing Lab:[facility] , [address] [place] [address]. [facility] [address] Notes/Report: Creatinine 0.74 0.60-1.10 mg/dL CBC w auto diff Reviewed date:12/01/2024 12:56:05 PM Interpretation: Performing Lab:[facility] , [address] [place] [address]. [facility] [address] Notes/Report: WBC 7.33 3.80-9.90 K/cumm Hgb 13.0 11.9-15.5 g/dL Hct 40.6 35.6-45.5 % Platelet Ct 273 150-400 K/cumm MPV 11.9 9.1-12.3 fL RBC 4.41 3.90-5.20 M/cumm MCV 92.1 81.3-96.4 fL MCH 29.5 27.1-33.3 pg MCHC 32.0 32.3-35.7 g/dL RDW CV 14.8 11.1-14.9 % RDW SD 48.4 35.7-48.1 fL NRBC Abs Auto 0.00 0.00-0.01 K/cumm Hep Func Panel Reviewed date:03/07/2025 04:43:01 PM Interpretation: Performing Lab:[facility] , [address] [place] [address]. [facility] [address] Notes/Report: Total Bilirubin 0.7 0.1-1.2 mg/dL Bilirubin, Direct 0.4 0.1-0.3 mg/dL Plasma Total Protein 6.5 6.5-8.5 g/dL Albumin 3.5 3.5-5.0 g/dL Alkaline Phosphatase 357 40-130 Units/L ALT 88 7-45 Units/L AST 78 10-45 Units/L Creatinine Reviewed date:03/04/2025 08:59:24 AM Interpretation: Performing Lab:[facility] , [address] [place] [address]. [place] [address] Notes/Report: Creatinine 0.69 0.60-1.10 mg/dL CBC w auto diff Reviewed date:03/06/2025 08:07:52 AM Interpretation: Performing Lab:[facility] , [facility]. [place] [address] Notes/Report: WBC 7.93 3.80-9.90 K/cumm Hgb 12.3 [...] Duration: 28 Days Active Vitamin D (Ergocalciferol) 29767 UNIT Oral Active Sotalol HCl 80 MG [...] or upper arm rotating injection sites Subcutaneous [id number] Not-Taking Pravastatin Sodium 10 MG take 1 [...] Problem Status W/U Status Risk Notes Problem Rheumatoid arthritis (37327702) Other specified rheumatoid arthritis, 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 Problem Long-term current use of drug therapy (713912347) Other group home (current) drug therapy (Z79.899) Active confirmed Problem Rheumatoid arthritis (91641097) Rheumatoid arthritis, unspecified (M06.9) 5 Active confirmed Vital Signs Heart Rate 114 /min 03/14/2025 Temperature 98.1 degrees Fahrenheit 03/14/2025 Height-cm 160.02 cm 03/14/2025 Blood pressure diastolic 80 mm Hg 03/14/2025 Oximetry 83 % 03/14/2025 Weight-kg 73.94 kg 03/14/2025 Height 63 in 03/14/2025 Blood pressure systolic 160 mm Hg 03/14/2025 Weight 163 lbs 03/14/2025 BMI 28.87 kg/m2 03/14/2025 Encounters Encounter Location Date Provider Diagnosis [facility] [address] [place] [address] 05/24/2024 Filippo DiValerio Other terminal makeup operator (current) drug therapy Z79.899 and Other specified rheumatoid arthritis, 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 [facility] [address] [place] [address] 09/02/2024 Filippo DiValerio Other group home (current) drug therapy Z79.899 and Other specified rheumatoid arthritis, 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 [facility] [address] [place] [address] 12/01/2024 Filippo DiValerio Other group home (current) drug therapy Z79.899 and Other specified rheumatoid arthritis, 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 [facility] [address] [place] [address] 03/02/2025 Filippo DiValerio Other group home (current) drug therapy Z79.899 and Other specified rheumatoid arthritis, 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 [facility] [address] [place] [address] 03/14/2025 Fiilppo DiValerio Other group home (current) drug therapy Z79.899 ; Other specified rheumatoid arthritis, 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 ; Elevated LFTs R79.89 and Elevated alkaline phosphatase level R74.8 [facility] [address] [place] [address] 03/07/2025 Filippo DiValerio Assessments Encounter Date Diagnosis (ICD Code) Assessment Notes Treatment Notes Treatment Clinical Notes Section Notes 05/24/2024 Other specified rheumatoid arthritis, multiple sites (ICD-10 - M06.89) 05/24/2024 Other terminal makeup operator (current) drug therapy (ICD-10 - Z79.899) 09/02/2024 Other specified rheumatoid arthritis, multiple sites (ICD-10 - M06.89) 09/02/2024 Other group home (current) drug therapy (ICD-10 - Z79.899) 12/01/2024 Other specified rheumatoid arthritis, multiple sites (ICD-10 - M06.89) 12/01/2024 Other group home (current) drug therapy (ICD-10 - Z79.899) 03/02/2025 Other group home (current) drug therapy (ICD-10 - Z79.899) 03/14/2025 Other specified rheumatoid arthritis, multiple sites (ICD-10 - M06.89) 03/14/2025 Other terminal makeup operator (current) drug therapy (ICD-10 - Z79.899) 03/14/2025 Elevated LFTs (ICD-10 - R79.89) 03/02/2025 Other specified rheumatoid arthritis, multiple sites (ICD-10 - M06.89) 03/14/2025 Elevated alkaline phosphatase level (ICD-10 - R74.8) 03/14/2025 Other Liver ultrasound ordered. Plan Of Treatment Pending Test Test Name Order Date Alkaline Phosphatase, S 03/14/2025 CBC With Differential/Platelet 4 CBC With Differential/Platelet 3 CBC With Differential/Platelet Hepatic Function Panel (7) 11/20/2023 Hepatic Function Panel (7) 08/21/2023 Hepatic Function Panel (7) 02/19/2024 ESR 02/19/2024 Creatinine 02/19/2024 Creatinine 08/21/2023 Creatinine 11/20/2023 Hep Func Panel 03/14/2025 Next Appt Details Provider Name:Filippo Kashif sylvester, 06/07/2025 11:30:00 AM, [address] [facility] [address] [place], [address], Insurance Providers Payer Name Payer Address Payer Phone Subscriber Number Group Number Insured Name Patient Relationship to Insured Coverage Start Date Coverage End Date [facility] [address] [place] [address] [id number] Laura Clifford Self - patient is the insured [employer] [address] [place], [place] [id number] Laura Clifford Self - patient is the insured 1 DO NOT USE [id number] Laura Clifford Self - patient is the insured 8 [employer] [address] [address] [place] [address] [id number] Laura Clifford Self - patient is the insured 2 t [address] [address] [place] [address] [id number] Laura Clifford Self - patient is the insured [employer] Medicare Ppo [address] [place] [address] [id number] Laura Clifford Self - patient is the insured Medical (General) History Surgical History Surgery Date(Month/Year) Hospitalization History Reason Date(Month/Year)
--- OUTSIDE RECORDS SUMMARY | 2025-04-27 11:02 | XMS_ITS | Clinical Summary ---
Author Organization [facility] Address [address] [facility] [address] [place] [address] Phone Care Team Providers Care Strategic Debriefing Specialist Name Role Phone Parminder Rojas MD Primary Care Provider [phone] Allergies Active Allergy Reactions Criticality Noted Date [...] UNIT Tablet Take by mouth. Activ e [place]-3 Fatty Acids (FISH OIL PO) Take by [...] Immunization (50+ years) (2 of 2 - PCV20 or PCV21) 08/20/2021 08/20/2020 SARS-COV-2 Immunization (4 - season) [...] Maintenance Insurance MEDICARE C [employer] Care Teams Strategic Debriefing Specialist Relationship Specialty Start Date End Date Parminder Rojas MD [address] [address] PCP - General Family Medicine 04/08/18
--- OUTSIDE RECORDS SUMMARY | 2025-04-27 11:02 | XMS_ITS | Clinical Summary ---
Author Organization [facility] Address [address] [place] [address] Care Team Providers Care Assault Boat Coxswain Name Role Phone Parminder Rojas MD Primary Care Provider [phone] Yannick Guevara MD Unavailable [phone] Ayde Peña MD Unavailable [phone] Allergies Active Allergy Reactions Criticality Noted [...] - 03/14/2025 11:59 PM CDT Hospital Encounter [address] [address] Discharge Disposition: Discharge to home or self care 03/02/2025 4:38 PM CDT - 03/02/2025 11:59 PM CDT Hospital Encounter [address] [address] Discharge Disposition: Discharge to home [...] (HCC) Hypertension COPD (chronic obstructive pulmonary disease) Rheumatoid arthritis (HCC) Family History Medical History [...] on file Legal Sex 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 Gender Identity Not on file Sexual Orientation Not on file Obstetrics History Last Filed Vital Signs Vital Sign Reading Time Taken Comments Blood Pressure 161/74 08/26/2024 1:13 PM FINANCIAL SALES MANAGER Pulse 63 08/26/2024 1:13 PM FINANCIAL SALES MANAGER Temperature 36.1 C (96.9 F) 08/06/2021 1:42 PM FINANCIAL SALES MANAGER Respiratory Rate 16 07/20/2024 9:06 AM FINANCIAL SALES MANAGER Oxygen Saturation 92% 07/20/2024 9:06 AM FINANCIAL SALES MANAGER Inhaled Oxygen Concentration - - Weight 81.6 kg (180 lb) 09/14/2024 12:16 PM FINANCIAL SALES MANAGER Height 154.9 cm (5' 1) 09/14/2024 12:16 PM FINANCIAL SALES MANAGER Body Mass Index 34.01 09/14/2024 12:16 PM FINANCIAL SALES MANAGER Plan of Treatment Health Maintenance Due Date Last Done Comments Breast Cancer Screening-Mammogram 1950 Colon Cancer Screening-Colonoscopy 1950 Depression Screening 1952 Fall Risk Assessment 1950 Hepatitis C Screening 1950 Osteoporosis Screening-Bone Density Scan 1950 DTaP/Tdap/Td Vaccine (1 - Tdap) 02/12/1963 Hepatitis B Screening 02/12/1970 Zoster Vaccine (2 of 3) 05/18/2013 03/23/2013 Well Visit 65+ 02/12/2017 Pneumococcal vaccine 65+ (2 of 2 - PPSV23, PCV20, or PCV21) 10/15/2020 08/20/2020 Covid-19 Vaccine (3 - 2023-2 [...] Bilirubin, direct 0.3 0.1 - 0.3 mg/dL [facility] Protein, pl 6.6 6.5 - 8.5 g/dL [facility] Albumin 3.8 3.5 - 5.0 g/dL [facility] Alk phos 390(H) 40 - 130 Units/L [facility] ALT 78(H) 7 - 45 Units/L [facility] AST 74(H) 10 - 45 Units/L [facility] Blood 03/14/2025 1:36 PM CDT 03/14/2025 8:52 PM CDT us Filippo Carpenter MD LAB BLOOD ORDERABLES Fin al Result [facility] [address] Department [place] [address] 566 * eGFR (03/02/2025 11:04 AM CDT) Pathologist [facility] eGFR >90 >=60 mL/min/1. 73 m2 Comment: [...] LAB BLOOD ORDERABLES Fin al Result [facility] [address] [place] [address] * (ABNORMAL) Differential, auto (03/02/2025 11:04 AM CDT) Pathologist [facility] Neutrophil abs 4.90 1.50 - 6.50 K/cumm Imm gran abs 0.05 0.00 - 0.10 K/cumm [facility] Lymphocyte abs 1.39 0.80 - 3.30 K/cumm [facility] Monocyte abs 1.04(H) 0.20 - 0.80 K/cumm [facility] Eosinophil abs 0.45 0.00 - 0.50 K/cumm [facility] Basophil abs 0.10 0.00 - 0.10 K/cumm [facility] Neutrophil pct 61.8 % [facility] Comment: Interpretive Data Percent cell count reference ranges are not reported, since discordance with absolute values may lead to misinterpretation of CBC data. Current Interpretive Data was last revised on 2017. Imm gran pct 0.6 % [facility] Comment: Interpretive Data Percent cell count reference ranges are not reported, since discordance with absolute values may lead to misinterpretation of CBC data. Current Interpretive Data was last revised on 2017. Lymphocyte pct 17.5 % [facility] Comment: Interpretive Data Percent cell count reference ranges are not reported, since discordance with absolute values may lead to misinterpretation of CBC data. Current Interpretive Data was last revised on 2017. Monocyte pct 13.1 % [facility] Comment: Interpretive Data Percent cell count reference ranges are not reported, since discordance with absolute values may lead to misinterpretation of CBC data. Current Interpretive Data was last revised on 2017. Eosinophil pct 5.7 % [facility] Comment: Interpretive Data Percent cell count reference ranges are not reported, since discordance with absolute values may lead to misinterpretation of CBC data. Current Interpretive Data was last revised on 2017. Basophil pct 1.3 % [facility] Comment: Interpretive Data Percent cell count reference ranges are not reported, since discordance with absolute values may lead to misinterpretation of CBC data. Current Interpretive Data was last revised on 2017. Blood 03/02/2025 11:0 4 AM CDT 03/02/2025 6:14 PM CDT us Filippo Carpenter MD LAB BLOOD ORDERABLES Fin al Result [facility] [address] [place] [address] * (ABNORMAL) CBC with auto differential (03/02/2025 11:04 AM CDT) WBC 7.93 3.80 - 9.90 K/cumm Hgb 12.3 11.9 - 15.5 g/dL [facility] Hct 39.5 35.6 - 45.5 % [facility] Plt 268 150 - 400 K/cumm [facility] MPV 12.3 9.1 - 12.3 fL [facility] RBC 4.28 3.90 - 5.20 M/cumm [facility] MCV 92.3 81.3 - 96.4 fL [facility] MCH 28.7 27.1 - 33.3 pg [facility] MCHC 31.1(L) 32.3 - 35.7 g/dL [facility] RDW CV 16.5(H) 11.1 - 14.9 % [facility] RDW SD 53.5(H) 35.7 - 48.1 fL [facility] NRBC abs 0.00 0.00 - 0.01 K/cumm [facility] Blood 03/02/2025 11:0 4 AM CDT 03/02/2025 6:14 PM CDT Filippo Carpenter MD LAB BLOOD ORDERABLES Fin al Result Performing Organization Address [facility] Co de Phone Number [facility] [address] [place] [address] * Creatinine (03/02/2025 11:04 AM CDT) Creatinine 0.69 0.60 - 1.10 mg/dL Blood 03/02/2025 11:0 4 AM CDT 03/02/2025 6:14 PM CDT Filippo Carpenter MD LAB BLOOD ORDERABLES Fin al Result Performing Organization Address [facility] Co de Phone Number [facility] [address] [facility] [employer] [place], [place] [id number] * (ABNORMAL) Hepatic function panel (03/02/2025 11:04 AM CDT) Bilirubin, total 0.7 0.1 - 1.2 mg/dL Bilirubin, direct 0.4(H) 0.1 - 0.3 mg/dL [facility] Protein, pl 6.5 6.5 - 8.5 g/dL [facility] Albumin 3.5 3.5 - 5.0 g/dL [facility] Alk phos 357(H) 40 - 130 Units/L [facility] ALT 88(H) 7 - 45 Units/L [facility] AST 78(H) 10 - 45 Units/L [facility] Blood 03/02/2025 11:0 4 AM CDT 03/02/2025 6:14 PM CDT us Filippo Carpenter MD LAB BLOOD ORDERABLES Fin al Result [facility] [address] [place] [address] from Last 3 Months Insurance [employer] PPO [employer] Care Teams Assault Boat Coxswain Relationship Specialty Start Date End Date Parminder Rojas MD PCP - General 01/19/14 Yannick Guevara MD [address] [facility] [phone] [place] [address] Surgeon Colon and Rectal Surgery 02/07/21 Ayde Peña MD [address] [facility] [address] [place] [address] Referring Physician Family Medicine 02/07/21
--- OUTSIDE RECORDS SUMMARY | 2025-04-27 11:02 | XMS_ITS | Clinical Summary ---
Author Organization [facility] Address [address] [facility] [place] [address] Care Team Providers Care Commodity Supervisor Name Role Phone Max Carpenter MD Unavailable [phone] Source Comments [facility],non-owned Affiliates and Associated Physician Practices is amultiple site organization consisting of ambulatory clinics and hospital sitesin [place], [place], [place] and [place]. This disclosure is being madepursuant to the Care Everywhere program and may not contain all information available regarding this patient. Last updated 18.[facility] Allergies Active Allergy Reactions Criticality Noted [...] on file Legal Sex Female 6:12 AM PAPER CONTROL CLERK Gender Identity Not on file Sexual Orientation Not on file Last Filed Vital Signs Vital Sign Reading Time Taken Comments Blood Pressure 134/68 07/22/2011 4:17 PM PAPER CONTROL CLERK Pulse 81 07/22/2011 4:17 PM PAPER CONTROL CLERK Temperature 36.9 C (98.5 F) 07/22/2011 4:17 PM PAPER CONTROL CLERK Respiratory Rate 18 07/22/2011 4:17 PM PAPER CONTROL CLERK Oxygen Saturation 96% 07/22/2011 4:17 PM PAPER CONTROL CLERK Inhaled Oxygen Concentration - - Weight 104.3 kg (230 lb) 07/22/2011 6:45 AM PAPER CONTROL CLERK Height 160 cm (5' 3) 07/22/2011 6:45 AM PAPER CONTROL CLERK Body Mass Index 40.74 07/22/2011 6:45 AM PAPER CONTROL CLERK Plan of Treatment Health Maintenance Due [...] age to complete this topic Insurance [facility] [facility] AETNA MEDIC[facility] ADV SELF PAY NO INSURANCE Member Subscriber Plan / Payer (Ef fective for All Dates) Name:Laura Valenzuela Member ID:Not on file Relation to Subscriber:Not on file Name:LAURA VALENZUELA Subscriber ID:Not on file Address: [address] [place] [address] [place] [address] Payer ID:Not on file Group ID:Not on file Type:Self Pay Address: [place], [place] Advance Directives * FULL RESUSCITATION (Latest Code Status on File) Date Activated Date Inactivated Comments 07/22/2011 12:27 PM 07/23/2011 6:58 AM Care Teams Commodity Supervisor Relationship Specialty Start Date End Date Max Carpenter MD Physician Rheumatology 08/10/11
--- OUTSIDE RECORDS SUMMARY | 2025-04-27 11:02 | XMS_ITS | Encounter Summary ---
Author Organization [facility] Address [address] [facility] [place] [address] Care Team Providers Care Annealing Operator Name Role Phone Filippo Carpenter MD Unavailable [phone] Encounter Details Date Type Department Care Team (Late st Contact Info) Description 07/19/2020 Lab Requisition [facility] [address] [facility], [place] [address] Zora Gilmore MD [address] [facility] [address] [place] [address] Social History Tobacco Use Types Packs/Day Years Used Date Smoking Tobacco: Never Alcohol Use Standard Drinks/Week Comments No 0 (1 standard drink = 0.6 oz pur e alcohol) Comments No Sex and Gender Information Value Date Recorded Sex Assigned at Not on file Legal Sex Female 6:12 AM COMPRESSOR STATION ENGINEER Gender Identity Not on file Sexual Orientation Not on file documented as of this encounter Plan of Treatment Not on file documented as of this encounter Procedures Procedure Name Priority Date/Time Associated Diagnosis Comments DERMATOPATHOLOGY Routine 07/18/2020 12:0 0 AM COMPRESSOR STATION ENGINEER documented in this encounter Results * DERMATOPATHOLOGY (07/18/2020 12:00 AM COMPRESSOR STATION ENGINEER) Case Report Dermatopathology Report Case: [id number] Authorizing Provider: Zora Gilmore MD Collected: 07/18/2020 12:00 AM Ordering Location: [facility]erm[facility] Lab Received: 07/19/2020 05:55 AM Pathologist: Miranda Brennan MD Specimen: Skin, nose tip 0 7:17 PM [facility] DERMATOPATHOLOGY LABORATORY Final Diagnosis Specimen A. SKIN, nose tip: ACTINIC KERATOSIS (L57.0) (see microscopic description) 0 7:17 PM [facility] DERMATOPATHOLOGY LABORATORY at [address] [facility] Clinical History R/O BCC,AK 0 7:17 PM [facility] DERMATOPATHOLOGY LABORATORY Gross Description Specimen A: Received is one formalin filled container labeled with the patient's name and designated nose tip. The specimen consists of a shave biopsy measuring 3x3x1 mm. Jar 0. 0 7:17 PM [facility] DERMATOPATHOLOGY LABORATORY Microscopic Description Specimen A. SKIN, nose tip: There is focal parakeratosis. The lower half of the epidermis shows disorderly maturation of keratinocytes with nuclear pleomorphism. Additional deeper sections were obtained and reviewed. 0 7:17 PM [facility] DERMATOPATHOLOGY LABORATORY Disclaimer An external and internal positive and negative controls are appropriate for the histochemical, immunohistochemical and immunofluorescence stain(s) in this case (if any), except where stated explicitly. The performance characteristics of the stain(s) cited in this report were developed and its performance characteristic determined by the Dermatopathology Laboratory at [facility], directed by Dr. Krys Villagran. These tests need not be, and therefore are not, approved by the [place] Food and Drug Administration. The tests are used for clinical purposes. Billing Codes Specimen Charges Stain Charges 13486 1 0 7:17 PM COMPRESSOR STATION ENGINEER DERMATOPATHOLOGY LABORATORY Embedded Images 0 7:17 PM [facility] DERMATOPATHOLOGY LABORATORY Pathology/Cytolog y TISSUE SPECIMEN FROM SKIN / Unknown 07/18/2020 07/19/2020 5:55 AM [facility] us Zora Gilmore MD LAB - PATHOLOGY/CYTOLOGY ORD ERABLES Final Result DERMATOPATHOLOGY LABORATORY [facility] - Department of Dermatology [address], [address] [phone] documented in this encounter Visit Diagnoses Not on filedocumented in this encounter Care Teams Annealing Operator Relationship Specialty Start Date End Date Filippo Carpenter MD Physician Rheumatology 08/10/11 documented as of this encounter
--- OUTSIDE RECORDS SUMMARY | 2025-04-27 11:02 | XMS_ITS | Encounter Summary ---
Author Organization [facility] Address [address] [facility] [place] [address] Care Team Providers Care Fiber Drier Operator Name Role Phone Filippo Carpenter MD Unavailable [phone] Encounter Details Date Type Department Care Team (Late st Contact Info) Description 01/27/2019 Lab Requisition [facility] [address] 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 Jar 0. 12:24 PM CDT DERMATOPATHOLOGY LABORATORY [...] characteristic determined by the Dermatopathology Laboratory at [facility], directed by Dr. Krys Villagran. These tests need not be, and therefore are not, approved by the [place] Food and Drug Administration. The tests are used for clinical purposes. Billing Codes Specimen Charges Stain Charges 76717 1 12:24 PM CDT DERMATOPATHOLOGY LABORATORY Embedded Images 12:24 PM CDT DERMATOPATHOLOGY LABORATORY Pathology/Cytolog y TISSUE SPECIMEN FROM SKIN / Unknown 01/26/2019 01/27/2019 10:42 AM CDT Bettina Esipno DO LAB - PATHOLOGY/CYTOLOGY ORDERABLES Final Result DERMATOPATHOLOGY LABORATORY [facility] - Department of Dermatology [address] [place] [address], 5th Floor Lab [address] [phone] documented in this encounter Visit Diagnoses Not on filedocumented in this encounter Care Teams Fiber Drier Operator Relationship Specialty Start Date End Date Filippo Carpenter MD Physician Rheumatology 08/10/11 documented as of this encounter
--- OUTSIDE RECORDS SUMMARY | 2025-04-27 11:02 | XMS_ITS | Clinical Summary ---
Author Organization [facility] Address [address] [place] [address] Care Team Providers Care Flour Inspector Name Role Phone Parminder Rojas MD Primary Care Provider Allergies Active Allergy Reactions Criticality Noted Date [...] 50+ YEA RS (2 of 2 - PCV20 or PCV21) 08/20/2021 08/20/2020 COVID-19 Vaccine (3 - 2023-2 5 season) 2024 12/20/2020, 11/29/2020 INFLUENZA VACCINE (#1) 2025 0, 06/08/2018, 06/22/2017, Additional history exists RSV VACCINE (60+ or ) (1 - 1-dose 75+ series) 02/12/[address] [place] [address] [employer] PPO MCR Care Teams Flour Inspector Relationship Specialty Start Date End Date Parminder Rojas MD [address] [place] [phone] PCP - General Family Practice 02/04/22
--- NOTE | 2025-04-27 11:13 | ECG_ITS ---
Test Date: 2025-04-27 11:23:16 Measurements Intervals [place] Rate: 110 P: 0 IA: 0 QRS: -68 QRSD: 150 T: 40 QT: 313 QTc: 424 Interpretive Statements SINUS RHYTHM WITH FIRST DEGREE AV BLOCK WITH ATRIAL PREMATURE COMPLEX, ATRIAL COUPLET, ATRIAL TRIPLET RIGHT BUNDLE BRANCH BLOCK LEFT ANTERIOR FASCICULAR BLOCK BASELINE ARTIFACT- I, II, III, AVR, AVL, AVF ABNORMAL ECG Compared to ECG 12/21/2024 14:33:32 Right bundle-branch block now present Left anterior fascicular block now present Electronically Signed On 04-27-2025 12:11:36 CDT by Miky Sorensen D.O.
[2025-04-27 11:40] LABS: Hematocrit 39.2 % (37.0-47.0); Hemoglobin 12.6 g/dL (12.0-15.0); Immature Granulocyte Percent A 0.7 % (0-0.5); Lymphocytes Absolute Auto 1.12 K/mm3 (0.9-3.2); Mean Corpuscular HGB Conc 32.1 g/dl (32-36); Mean Corpuscular Hemoglobin 28.7 pg (26-34); Mean Corpuscular Volume 89.3 fl (80-100); Nucleated Red Blood Cells Absolute Auto 0.000 K/mm3 (0.0-0.012); Nucleated Red Blood Cells Perc 0.0 % (0.0-0.2); Platelet Count Result 288 k/mm3 (150-375); Red Blood Count 4.39 M/mm3 (4.2-5.4); White Blood Count 8.9 K/mm3 (4.5-10.0)
[2025-04-27 11:59] LABS: Alanine Aminotransferase 55 U/L (6-35); Albumin Level 3.8 g/dL (3.5-5.1); Alkaline Phosphatase 336 U/L (38-126); Anion Gap 7 mmol/L (4-12); Aspartate Amino Transferase 71 U/L (14-36); Bilirubin,Total 1.2 mg/dL (0.2-1.3); Blood Urea Nitrogen 20 mg/dL (7-17); Calcium 11.9 mg/dL (8.4-10.2); Carbon Dioxide 32 mmol/L (22-30); Chloride 95 mmol/L (98-107); Estimated CRCL calculation 43 ml/min; Estimated Glomerular Filt Rate 58; Glucose 149 mg/dL (65-110); Potassium 2.9 mmol/L (3.4-5.0); Sodium 134 mmol/L (137-145); Total Protein 7.1 g/dL (6.3-8.2)
--- OUTSIDE RECORDS SUMMARY | 2025-04-27 12:29 | XMS_ITS | Clinical Summary ---
Author Organization [facility] Address [address] [facility] [place] [address] Care Team Providers Care Core Microarchitect Name Role Phone Parminder Rojas MD Primary Care Provider [phone] Allergies Active Allergy Reactions Criticality Noted Date [...] - 1-dose 75+ series) 02/12/[address] [place] [address] A[employer] PPO MCR Care Teams Core Microarchitect Relationship Specialty Start Date End Date Parminder Rojas MD [address] [place] [phone] PCP - General Family Practice 02/04/22
--- OUTSIDE RECORDS SUMMARY | 2025-04-27 12:29 | XMS_ITS | Clinical Summary ---
Author Organization [facility] Address [address] [facility] [address] [place] [address] Phone Care Team Providers Care High Lead Yarder Name Role Phone Parminder Rojas MD Primary Care Provider [phone] Allergies Active Allergy Reactions Criticality Noted Date [...] UNIT Tablet Take by mouth. Activ e [place]-3 Fatty Acids (FISH OIL PO) Take by [...] Maintenance Insurance MEDICARE C AETNA Care Teams High Lead Yarder Relationship Specialty Start Date End Date Parminder Rojas MD [address] [address] PCP - General Family Medicine 04/08/18
--- OUTSIDE RECORDS SUMMARY | 2025-04-27 12:30 | XMS_ITS | Clinical Summary ---
Author Organization [facility] Address [address] [facility] [place] [address] Care Team Providers Care Job Training Supervisor Name Role Phone Max Carpenter MD Unavailable [phone] [facility],non-owned Affiliates and Associated Physician Practices is amultiple site organization consisting of ambulatory clinics and hospital sitesin [place], [place], [place] and [place]. This disclosure is being madepursuant to the Care Everywhere program and may not contain all information available regarding this patient. Last updated 18.[facility] Allergies Active Allergy Reactions Criticality Noted [...] on file Legal Sex Female 6:[address] LIGHT SERVICER SUPERVISOR Gender Identity Not on file Sexual Orientation Not on file Last Filed Vital Signs Vital Sign Reading Time Taken Comments Blood Pressure 134/68 07/22/2011 4:[address] LIGHT SERVICER SUPERVISOR Pulse 81 07/22/2011 4:[address] LIGHT SERVICER SUPERVISOR Temperature 36.9 C (98.5 F) 07/22/2011 4:[address] LIGHT SERVICER SUPERVISOR Respiratory Rate 18 07/22/2011 4:[address] LIGHT SERVICER SUPERVISOR Oxygen Saturation 96% 07/22/2011 4:[address] LIGHT SERVICER SUPERVISOR Inhaled Oxygen Concentration - - Weight 104.3 kg (230 lb) 07/22/2011 6:[address] LIGHT SERVICER SUPERVISOR Height 160 cm (5' 3) 07/22/2011 6:[address] LIGHT SERVICER SUPERVISOR Body Mass Index 40.74 07/22/2011 6:[address] LIGHT SERVICER SUPERVISOR Plan of Treatment Health Maintenance Due Date [...] age to complete this topic Insurance [employer] [facility] AETNA MEDICARE ADV SELF PAY NO INSURANCE Member Subscriber Plan / Payer (Ef fective for All Dates) Name:Laura Valenzuela Member ID:Not on file Relation to Subscriber:Not on file Name:LAURA VALENZUELA Subscriber ID:Not on file Address: [address] [place] [address] [place] [address] Payer ID:Not on file Group ID:Not on file Type:Self Pay Address: [place], [place] Advance Directives * FULL RESUSCITATION (Latest Code Status on File) Date Activated Date Inactivated Comments 07/22/2011 12:27 PM 07/23/2011 6:58 AM Care Teams Job Training Supervisor Relationship Specialty Start Date End Date Max Carpenter MD Physician Rheumatology 08/10/11
--- OUTSIDE RECORDS SUMMARY | 2025-04-27 12:30 | XMS_ITS | Encounter Summary ---
Author Organization [facility] Health Address [address] [facility] [place] [address] Care Team Providers Care Wood Heel Back Liner Name Role Phone Filippo Carpenter MD Unavailable [phone] Encounter Details Date Type Department Care Team (Late st Contact Info) Description 01/27/2019 Lab Requisition [facility] [address] 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 Jar 0. 12:24 PM CDT DERMATOPATHOLOGY LABORATORY [...] characteristic determined by the Dermatopathology Laboratory at [facility], directed by Dr. Krys Villagran. These tests need not be, and therefore are not, approved by the [place] Food and Drug Administration. The tests are used for clinical purposes. Billing Codes Specimen Charges Stain Charges 56971 1 12:24 PM CDT DERMATOPATHOLOGY LABORATORY Embedded Images 12:24 PM CDT DERMATOPATHOLOGY LABORATORY Pathology/Cytolog y TISSUE SPECIMEN FROM SKIN / Unknown 01/26/2019 01/27/2019 10:42 AM CDT Bettina Espino DO LAB - PATHOLOGY/CYTOLOGY ORDERABLES Final Result DERMATOPATHOLOGY LABORATORY [facility] - Department of Dermatology [address] [place] [address], 5th Floor Lab [address] [phone] documented in this encounter Visit Diagnoses Not on filedocumented in this encounter Care Teams Wood Heel Back Liner Relationship Specialty Start Date End Date Filippo Carpenter MD Physician Rheumatology 08/10/11 documented as of this encounter
--- OUTSIDE RECORDS SUMMARY | 2025-04-27 12:30 | XMS_ITS | Encounter Summary ---
Author Organization [facility] Health Address [address] [facility] [place] [address] Care Team Providers Care Cinder Crane Operator Name Role Phone Filippo Carpenter MD Unavailable [phone] Encounter Details Date Type Department Care Team (Late st Contact Info) Description 07/19/2020 Lab Requisition [facility] [address] [facility] [place] [address] Zora Gilmore MD [address] [facility] [address] [place] [address] Social History Tobacco Use Types Packs/Day Years Used Date Smoking Tobacco: Never Alcohol Use Standard Drinks/Week Comments No 0 (1 standard drink = 0.6 oz pur e alcohol) Comments No Sex and Gender Information Value Date Recorded Sex Assigned at Not on file Legal Sex Female 6:12 AM SPECIAL COLLECTIONS LIBRARIAN Gender Identity Not on file Sexual Orientation Not on file documented as of this encounter Plan of Treatment Not on file documented as of this encounter Procedures Procedure Name Priority Date/Time Associated Diagnosis Comments DERMATOPATHOLOGY Routine 07/18/2020 12:0 0 AM SPECIAL COLLECTIONS LIBRARIAN documented in this encounter Results * DERMATOPATHOLOGY (07/18/2020 12:00 AM SPECIAL COLLECTIONS LIBRARIAN) Case Report Dermatopathology Report Case: [id number] Authorizing Provider: Zora Gilmore MD Collected: 07/18/2020 12:00 AM Ordering Location: [facility] Lab Received: 07/19/2020 05:55 AM Pathologist: Miranda Brennan MD Specimen: Skin, nose tip 0 7:17 PM [facility] DERMATOPATHOLOGY LABORATORY Final Diagnosis Specimen A. SKIN, nose tip: ACTINIC KERATOSIS (L57.0) (see microscopic description) 0 7:17 PM [facility] DERMATOPATHOLOGY LABORATORY at [address] [facility] Clinical History R/O BCC,AK 0 7:17 PM [facility] DERMATOPATHOLOGY LABORATORY Gross Description Specimen A: Received is one formalin filled container labeled with the patient's name and designated nose tip. The specimen consists of a shave biopsy measuring 3x3x1 mm. Jar 0. 0 7:17 PM [facility] DERMATOPATHOLOGY LABORATORY Microscopic Description Specimen A. SKIN, nose tip: There is focal parakeratosis. The lower half of the epidermis shows disorderly maturation of keratinocytes with nuclear pleomorphism. Additional deeper sections were obtained and reviewed. 0 7:17 PM [facility] DERMATOPATHOLOGY LABORATORY Disclaimer An external and [...] purposes. Billing Codes Specimen Charges Stain Charges [id number] 1 0 7:17 PM SPECIAL COLLECTIONS LIBRARIAN DERMATOPATHOLOGY LABORATORY Embedded Images 0 7:17 PM [facility] DERMATOPATHOLOGY LABORATORY Pathology/Cytolog y TISSUE SPECIMEN FROM SKIN / Unknown 07/18/2020 07/19/2020 5:55 AM [facility] us Zora Gilmore MD LAB - PATHOLOGY/CYTOLOGY ORD ERABLES Final Result DERMATOPATHOLOGY LABORATORY [facility] - Department of Dermatology [address], [address] [phone] documented in this encounter Visit Diagnoses Not on filedocumented in this encounter Care Teams Cinder Crane Operator Relationship Specialty Start Date End Date Filippo Carpenter MD Physician Rheumatology 08/10/11 documented as of this encounter
--- OUTSIDE RECORDS SUMMARY | 2025-04-27 12:30 | XMS_ITS | Clinical Summary ---
Author Organization [facility] Address [address] [place] [address] Care Team Providers Care Manager Hvac Name Role Phone Parminder Rojas MD Primary Care Provider [phone] Yannick Guevara MD Unavailable [phone] Ayde Peña MD Unavailable [phone] Allergies Active Allergy Reactions Criticality Noted [...] - 03/14/2025 11:59 PM CDT Hospital Encounter [address] [address] Discharge Disposition: Discharge to home or self care 03/02/2025 4:38 PM CDT - 03/02/2025 11:59 PM CDT Hospital Encounter [address] [address] Discharge Disposition: Discharge to home [...] on file Legal Sex Female 2:00 AM SAND CAR WORKER Gender Identity Not on file Sexual Orientation Not on file Obstetrics History Last Filed Vital Signs Vital Sign Reading Time Taken Comments Blood Pressure 161/74 08/26/2024 1:13 PM SAND CAR WORKER Pulse 63 08/26/2024 1:13 PM SAND CAR WORKER Temperature 36.1 C (96.9 F) 08/06/2021 1:42 PM SAND CAR WORKER Respiratory Rate 16 07/20/2024 9:06 AM SAND CAR WORKER Oxygen Saturation 92% 07/20/2024 9:06 AM SAND CAR WORKER Inhaled Oxygen Concentration - - Weight 81.6 kg (180 lb) 09/14/2024 12:16 PM SAND CAR WORKER Height 154.9 cm (5' 1) 09/14/2024 12:16 PM SAND CAR WORKER Body Mass Index 34.01 09/14/2024 12:16 PM SAND CAR WORKER Plan of Treatment Health Maintenance Due Date [...] Bilirubin, direct 0.3 0.1 - 0.3 mg/dL [facility] Protein, pl 6.6 6.5 - 8.5 g/dL [facility] Albumin 3.8 3.5 - 5.0 g/dL [facility] Alk phos 390(H) 40 - 130 Units/L [facility] ALT 78(H) 7 - 45 Units/L [facility] AST 74(H) 10 - 45 Units/L [facility] Blood 03/14/2025 1:36 PM CDT 03/14/2025 8:52 PM CDT us Filippo Carpenter MD LAB BLOOD ORDERABLES Fin al Result [facility] [address] Department [place] [address] 059 * eGFR (03/02/2025 11:04 AM CDT) Pathologist [...] MD LAB BLOOD ORDERABLES Fin al Result [facility] [address] Department [place] [address] * (ABNORMAL) Differential, auto (03/02/2025 11:04 AM CDT) Pathologist [facility] Neutrophil abs 4.90 1.50 - 6.50 K/cumm Imm gran abs 0.05 0.00 - 0.10 K/cumm [facility] Lymphocyte abs 1.39 0.80 - 3.30 K/cumm [facility] Monocyte abs 1.04(H) 0.20 - 0.80 K/cumm [facility] Eosinophil abs 0.45 0.00 - 0.50 K/cumm [facility] Basophil abs 0.10 0.00 - 0.10 K/cumm [facility] Neutrophil pct 61.8 % [facility] Comment: Interpretive Data Percent cell count reference ranges are not reported, since discordance with absolute values may lead to misinterpretation of CBC data. Current Interpretive Data was last revised on 2017. Imm gran pct 0.6 % [facility] Comment: Interpretive Data Percent cell count reference ranges are not reported, since discordance with absolute values may lead to misinterpretation of CBC data. Current Interpretive Data was last revised on 2017. Lymphocyte pct 17.5 % [facility] Comment: Interpretive Data Percent cell count reference ranges are not reported, since discordance with absolute values may lead to misinterpretation of CBC data. Current Interpretive Data was last revised on 2017. Monocyte pct 13.1 % [facility] Comment: Interpretive Data Percent cell count reference ranges are not reported, since discordance with absolute values may lead to misinterpretation of CBC data. Current Interpretive Data was last revised on 2017. Eosinophil pct 5.7 % [facility] Comment: Interpretive Data Percent cell count reference ranges are not reported, since discordance with absolute values may lead to misinterpretation of CBC data. Current Interpretive Data was last revised on 2017. Basophil pct 1.3 % [facility] Comment: Interpretive Data Percent cell count reference ranges are not reported, since discordance with absolute values may lead to misinterpretation of CBC data. Current Interpretive Data was last revised on 2017. Blood 03/02/2025 11:0 4 AM CDT 03/02/2025 6:14 PM CDT us Filippo Carpenter MD LAB BLOOD ORDERABLES Fin al Result [facility] [address] Department [place] [address] * (ABNORMAL) CBC with auto differential (03/02/2025 11:04 AM CDT) WBC 7.93 3.80 - 9.90 K/cumm Hgb 12.3 11.9 - 15.5 g/dL [facility] Hct 39.5 35.6 - 45.5 % [facility] Plt 268 150 - 400 K/cumm [facility] MPV 12.3 9.1 - 12.3 fL [facility] RBC 4.28 3.90 - 5.20 M/cumm [facility] MCV 92.3 81.3 - 96.4 fL [facility] MCH 28.7 27.1 - 33.3 pg [facility] MCHC 31.1(L) 32.3 - 35.7 g/dL [facility] RDW CV 16.5(H) 11.1 - 14.9 % [facility] RDW SD 53.5(H) 35.7 - 48.1 fL [facility] NRBC abs 0.00 0.00 - 0.01 K/cumm [facility] Blood 03/02/2025 11:0 4 AM CDT 03/02/2025 6:14 PM CDT Filippo Carpenter MD LAB BLOOD ORDERABLES Fin al Result Performing Organization Address [facility] Co de Phone Number [facility] [address] [place] [address] * Creatinine (03/02/2025 11:04 AM CDT) Creatinine 0.69 0.60 - 1.10 mg/dL Blood 03/02/2025 11:0 4 AM CDT 03/02/2025 6:14 PM CDT Filippo Carpenter MD LAB BLOOD ORDERABLES Fin al Result Performing Organization Address [facility] Co de Phone Number [facility] [address] [facility] [place], [place] [id number] * (ABNORMAL) Hepatic function panel (03/02/2025 11:04 AM CDT) Bilirubin, total 0.7 0.1 - 1.2 mg/dL Bilirubin, direct 0.4(H) 0.1 - 0.3 mg/dL [facility] Protein, pl 6.5 6.5 - 8.5 g/dL [facility] Albumin 3.5 3.5 - 5.0 g/dL [facility] Alk phos 357(H) 40 - 130 Units/L [facility] ALT 88(H) 7 - 45 Units/L [facility] AST 78(H) 10 - 45 Units/L [facility] Blood 03/02/2025 11:0 4 AM CDT 03/02/2025 6:14 PM CDT us Filippo Carpenter MD LAB BLOOD ORDERABLES Fin al Result [facility] [address] Department [place] [address] from Last 3 Months Insurance [employer] P[employer] Care Teams Manager Hvac Relationship Specialty Start Date End Date Parminder Rojas MD PCP - General 01/19/14 Yannick Guevara MD [address] [facility] [place] [phone] [place] [address] Surgeon Colon and Rectal Surgery 02/07/21 Ayde Peña MD [address] [facility] [address] [place] [address] Referring Physician Family Medicine 02/07/21
[2025-04-27] MEDS: POTASSIUM CHLORIDE 20 MEQ PACKET (FOR LIQUID) 40 MEQ PO ×2 (12:37→21:00)
[2025-04-27 13:04] LABS: Add Urine Microscopic? YES; Appearance Urine Clear (Clear); Glucose Urine UA Negative (Negative); Leukocyte Esterase Ur 1+ LEU/UL (Negative); Need Manual Microscopic Reviewed; Nitrate Urine Negative (Negative); Specific Grav Ur 1.022 (1.001-1.035)
--- NOTE | 2025-04-27 13:06 | PC.NURSE ---
During straight cath pt refused to let this rn use a hospital depend to change her damp Home depend. Pt stated absolutely not. After another hour or so, my can go get some out of the car if I am still here. I will not have one of those diapers used on me. This rn educated pt on importance of changing depend as it was slightly wet. Pt refused again.
--- NOTE | 2025-04-27 13:22 | ED_ITS ---
HPI - Weakness General Chief complaint: Weakness Stated complaint: b/l leg weakness since yesterday Time Seen by Provider: 04/27/25 12:12 Source: patient and family Mode of arrival: EMS Limitations: no limitations History of Present Illness HPI Narrative: 75-year-old with a history of COPD on 2 L of home oxygen, diabetes, hypertension, polymyalgia rheumatica, paroxysmal atrial fibrillation was brought in by EMS from home with the complaints of fall. Patient states that for the past 1 year her weakness in the lower extremities is been progressively getting worse. However for the past 3 days she is having difficulty in ambulation. She was in her garage fell and was unable to get up. She denied any head and neck injuries. MD Complaint: difficulty walking Onset (ago): day(s) (3) Duration: constant Location: LLE and RLE Migration: none Severity: moderate Relieving factors: none Exacerbating factors: none Context: new medication Associated symptoms: denies other symptoms Related Data Home Medications ?Medication ?Instructions ?Recorded ?Confirmed ?Last Taken ?Type leflunomide 20 mg tablet 20 mg PO HS 07/04/19 5 12/20/24 History nystatin 100,000 unit/mL oral 1 ml PO QID PRN Pain 04/2204/06/25 01/13/24 History suspension omega 8-gfh-dya-fish oil 100 2 cap PO BID 06/12/2303/2412/21/24 History mg-160 mg-1,000 mg capsule (Fish Oil) Allergies Allergy/AdvReac Type Severity Reaction Status Date / Time ciprofloxacin Allergy Mild Unknown Verified 04/06/25 07:42 codeine Allergy Unknown Unknown Verified 04/06/25 07:42 levofloxacin Allergy Unknown Unknown Verified 04/06/25 07:42 lisinopril Allergy Unknown Unknown Verified 04/06/25 07:42 amoxicillin (From Augmentin) AdvReac Severe Confusion Verified 04/06/25 07:42 clavulanic acid (From AdvReac Severe Confusion Verified 04/06/25 07:42 Augmentin) tramadol AdvReac Mild Confusion Verified 04/06/25 07:42 Review of Systems 2 Review of Systems: All systems reviewed & are unremarkable except as noted in HPI and below Constitutional: Constitutional: Reports no additional constitutional complaints Eyes: Eyes: Reports no additional eye complaints ENT: Reports system reviewed and no additional complaints, except as documented Cardiovascular: Cardiovascular: Reports no additional cardiovascular complaints Respiratory: Respiratory: Reports no additional respiratory complaints Gastrointestinal: Gastrointestinal: Reports no additional gastrointestinal complaints Musculoskeletal: Musculoskeletal: Reports as per HPI Integumentary/Breasts: Skin/Breast: Reports system reviewed and no additional complaints, except as docu Neurologic: Reports system reviewed and no additional complaints, except as documented [facility] Past Medical History Medical History Hard of hearing Eustachian tube dysfunction Cubital tunnel syndrome on right Pulmonary hypertension Chronic idiopathic myocarditis Restless leg syndrome 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 Chronic respiratory failure with hypoxia, on home oxygen therapy Transient ischemic attack Chronic hyponatremia Venous insufficiency Iron deficiency anemia Polymyalgia rheumatica Small vessel disease, cerebrovascular Chronic anticoagulation Paroxysmal atrial fibrillation Coronary artery disease Microscopic colitis Chronic diarrhea Exocrine pancreatic insufficiency COVID-19 Cervical arthritis Pneumonia Chronic obstructive pulmonary disease, unspecified Dyslipidemia Essential hypertension Gastro-esophageal reflux disease without esophagitis Multifocal atrial tachycardia Surgical History Surgical History History of heart artery stent History of cardiac catheterization History of bilateral knee replacement History of bilateral carpal tunnel release History of colonoscopy with polypectomy History of coronary artery bypass graft x 2 (12/2013) History of Achilles tendon repair History of spinal surgery Lumbar micro discectomy infusion. History of mitral valve repair History of shoulder surgery History of cataract extraction Left History of hand surgery trigger finger, thumb Family History Family History Mother Cerebrovascular accident Family history of diabetes mellitus in first degree relative Family history of coronary artery disease Acute myocardial infarction Diabetes mellitus Father Carcinoma of colon Family history of lung cancer Family history of malignant neoplasm of esophagus Sibling Liver disease Liver transplant recipient Other Family history of malignant neoplasm of brain Family history of malignant neoplasm of stomach Social History Social History Social History: Surrogate medical decision maker: Filippo Clifford, spouse. Code status: Full code. Smoking status: Never smoker Second hand tobacco smoke exposure: Yes Alcohol intake: current Alcohol use details: Rare alcohol use in moderation. Substance use: never Substance use type: does not use Do You Feel Safe in your Home?: Yes Lack of Transportation: No Lack of Food: Never True Current Housing: I Have Housing Concerned About Future Housing: No Difficulty Paying Gas/Electric Bills: No Difficulty Paying for Meds: No Currently Unemployed: No Education: High School Diploma/GED Difficulty w/ Childcare or Family Care: No Living arrangements: with family Additional living arrangements comments: Lives in [place] spouse. Occupation/Education: retired Additional occupation/education comments: Worked in [employer]. Spiritual care concerns: No Exam 2 Narrative: GENERAL: Well-appearing, well-nourished, and in no acute distress. HEAD: Normocephalic, atraumatic. EYES: PERRLA and EOMI. ENT: Nares clear, no rhinorrhea or epistaxis. Mucous membranes moist. NECK: Supple. CHEST: Clear to auscultation. No respiratory distress. HEART: Regular rate and rhythm. No murmur heard. Normal peripheral pulses. ABDOMEN: Soft, nontender, nondistended, normal active bowel sounds. EXTREMITIES: Normal range of motion. No edema. SKIN: Warm, dry, no rash. NEURO: No focal deficits. Alert and oriented x3. PSYCH: Normal mood and affect. Course Course Emergency Course: Notified pt and her about her lab work , will admit to the Hospital , consult PT and Ot and possible to rehab center. Vital Signs Vital signs: Vital Signs Temperature 36.7 C 04/27/25 11:14 Pulse Rate 106 H 04/27/25 11:14 Respiratory Rate 20 04/27/25 11:14 Blood Pressure 134/85 04/27/25 11:14 Pulse Oximetry 85 L 04/27/25 11:14 Oxygen Delivery Room Air 04/27/25 11:14 Temperature 36.7 C 04/27/25 11:14 Pulse Rate 95 04/27/25 13:35 Respiratory Rate 21 H 04/27/25 13:35 Blood Pressure 123/105 H 04/27/25 13:35 Pulse Oximetry 93 04/27/25 13:35 Oxygen Delivery Nasal Cannula 04/27/25 11:23 Oxygen Flow Rate 4 04/27/25 11:23 MDM - Weakness Differential Diagnosis Differential diagnosis: Likely anemia, dehydration and other (neuropathy , muscle weakness) Medical Records Attestation: I reviewed the patient's medical records. Lab Data Attestation: I reviewed the patient's lab results. 04/27/25 11:28 04/27/25 11:28 Labs: Lab Results 04/27/25 04/27/25 Range/Units 11:28 12:37 WBC 8.9 (4.5-10.0) K/mm3 RBC 4.39 (4.2-5.4) M/mm3 Hgb 12.6 (12.0-15.0) g/dL Hct 39.2 (37.0-47.0) % MCV 89.3 (80-100) fl MCH 28.7 (26-34) pg MCHC 32.1 (32-36) g/dl RDW 16.6 H (11.5-14.5) % Plt Count 288 (150-375) k/mm3 MPV 11.7 H (7.4-10.4) fl Immature Gran % (Auto) 0.7 H (0-0.5) % Neut % (Auto) 67.9 (45.5-73.1) % Lymph % (Auto) 12.6 L (18.3-44.2) % [place] % (Auto) 12.6 H (2.6-8.5) % Eos % (Auto) 5.3 H (0-4.4) % Baso % (Auto) 0.9 (0.2-1.2) % Lymph # (Auto) 1.12 (0.9-3.2) K/mm3 [place] # (Auto) 1.1 H (0.1-0.6) K/mm3 Eos # (Auto) 0.5 H (0-0.3) K/mm3 Baso # (Auto) 0.1 (0.0-0.1) K/mm3 Abs Immat Gran (auto) 0.06 H (0.00-0.031) K/mm3 Absolute Neuts (auto) 6.0 (1.3-6.7) K/mm3 Absolute Nucleated RBC 0.000 (0.0-0.012) K/mm3 Nucleated RBC % 0.0 (0.0-0.2) % Sodium 134 L (137-145) mmol/L Potassium 2.9 L (3.4-5.0) mmol/L Chloride 95 L (98-107) mmol/L Carbon Dioxide 32 H (22-30) mmol/L Anion Gap 7 (4-12) mmol/L BUN 20 H (7-17) mg/dL Creatinine 0.94 (0.7-1.0) mg/dL Estim Creat Clear Calc 43 ml/min Estimated GFR 58 L (59 - ) Glucose 149 H (65-110) mg/dL Calcium 11.9 H (8.4-10.2) mg/dL Total Bilirubin 1.2 (0.2-1.3) mg/dL AST 71 H (14-36) U/L ALT 55 H (6-35) U/L Alkaline Phosphatase 336 H (38-126) U/L Total Protein 7.1 (6.3-8.2) g/dL Albumin 3.8 (3.5-5.1) g/dL Urine Color Yellow (Yellow) Urine Appearance Clear (Clear) Urine pH 5.5 (5.0-9.0) Ur Specific [place] 1.022 (1.001-1.035) Urine Protein 1+ H (Negative) mg/dL Urine Glucose (UA) Negative (Negative) mg/dL Urine Ketones Negative (Negative) mg/dL Ur Blood (Man) Negative (Negative) Urine Nitrate Negative (Negative) Urine Bilirubin Negative (Negative) Urine Urobilinogen 1.0 (<2.0) mg/dL Add Ur Microanalysis Reviewed Leukocyte Esterase Rfl 1+ H (Negative) CHANO/UL Urine RBC 3-5 H (0-2) /hpf Urine WBC 6-10 H (0-3) /hpf Ur Squamous Epith Cells Occasional (Few) /hpf Calcium Oxalate Crystal Present (None) /hpf Urine Bacteria 4+ H /hpf Urine Casts 11-20 Hyaline Casts 3-4 H (None) /lpf Imaging Data Radiologist's impression: ITS Impressions Chest X-Ray 04/27/25 13:28 IMPRESSION: 1: Chronic apical infiltrates which may represent atypical pneumonia, fibrosis or scarring. Discharge Plan Discharge Clinical Impression: Bilateral leg weakness, Acute hypokalemia Patient Disposition: Still a Patient Condition: Stable Patient Language: Uzbek Prescriptions: No Action leflunomide 20 mg tablet 20 mg PO HS Fish Oil 100-160-1,000 mg capsule 2 cap PO BID Rx Instructions: two pills morning, two pills hs albuterol sulfate 90 mcg/actuation HFA aerosol inhaler 2 inh inhalation Q6H PRN (Reason: shortness of breath or wheezing) Qty: 8.5 2RF Rx Instructions: If tachycardia, use with caution. Repatha SureClick 140 mg/mL pen injector 140 mg subcut .every 2 weeks Qty: 2 11RF mirtazapine 7.5 mg tablet 7.5 mg PO QHS Qty: 30 0RF nystatin 100,000 unit/mL suspension 1 ml PO QID PRN (Reason: Pain) Rx Instructions: swish and swallow to each side of mouth arformoterol 15 mcg/2 mL solution for nebulization See Rx Instructions .ROUTE .COMPLEX Qty: 30 11RF Dose Instruction: USE 1 VIAL IN NEBULIZER DAILY Rx Instructions: USE 1 VIAL IN NEBULIZER DAILY sotalol 80 mg tablet See Rx Instructions .ROUTE .COMPLEX Qty: 180 2RF Dose Instruction: TAKE 1 TABLET BY MOUTH TWICE A DAY Rx Instructions: TAKE 1 TABLET BY MOUTH TWICE A DAY metoprolol tartrate 25 mg tablet See Rx Instructions .ROUTE .COMPLEX Qty: 180 2RF Dose Instruction: TAKE 1 TABLET BY MOUTH TWICE A DAY Rx Instructions: TAKE 1 TABLET BY MOUTH TWICE A DAY Xarelto 20 mg tablet See Rx Instructions .ROUTE .COMPLEX Qty: 30 5RF Dose Instruction: TAKE 1 TABLET BY MOUTH EVERY DAY MUST ADMINISTER WITH EVENING MEAL Rx Instructions: TAKE 1 TABLET BY MOUTH EVERY DAY MUST ADMINISTER WITH EVENING MEAL furosemide 40 mg tablet See Rx Instructions .ROUTE .COMPLEX Qty: 90 2RF Dose Instruction: TAKE 1 TABLET BY MOUTH EVERY DAY Rx Instructions: TAKE 1 TABLET BY MOUTH EVERY DAY pravastatin 10 mg tablet See Rx Instructions .ROUTE .COMPLEX Qty: 90 2RF Dose Instruction: TAKE 1 TABLET BY MOUTH EVERY DAY Rx Instructions: TAKE 1 TABLET BY MOUTH EVERY DAY tirzepatide 5 mg/0.5 mL pen injector 5 mg subcut WEEKLY Qty: 2 2RF Rx Instructions: thursday pramipexole 0.5 mg tablet 0.5 mg PO HS Qty: 90 1RF pantoprazole 40 mg tablet,delayed release (DR/EC) 40 mg PO QAM Qty: 90 3RF metformin 500 mg tablet extended release 24 hr 1,000 mg PO DAILY Qty: 90 0RF Rx Instructions: afternoon Pokonza 10 mEq packet 10 meq PO DAILY Qty: 30 0RF Follow-up/Referrals: Parminder Rojas MD [Primary Care Provider, Family Practice]
--- NOTE | 2025-04-27 13:55 | P.HP_ITS ---
H&P: HPI History of Present Illness Date/Time: 04/27/25 13:55 Chief Complaint: Weakness Narrative: 75-year-old female past medical history of COPD on 4 L at home, diabetes, hypertension, a and AFib presents the hospital with weakness having difficulty walking. She states that over the last year her mobility has severely declined however in the last 3 days she has had extreme issues with walking due to weakness. Today she was so weak that she did fall and was unable to get back up. Patient states that at that time she was not wearing her home oxygen. Patient denies any increase in shortness of breath, cough or sputum. She does complain of burning with urination. Lab work in the ED shows sodium of 134, potassium of 2.9, chloride of 95, carbon dioxide of 32, BUN of 20 GFR 58, glucose of 149 calcium of 11.9, AST 71 ALT 55, alkaline phos 336, UA 1+ leukocyte esterase, 6-10 wbc's negative for nitrates. Chest x-ray shows chronic apical infiltrates which may represent atypical pneumonia fibrosis or scarring. Review of Systems Review of Systems: 12 systems were reviewed and are negativ e except for as per HPI. 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 Chronic respiratory failure with hypoxia, on home oxygen therapy Transient ischemic attack Chronic hyponatremia Venous insufficiency Iron deficiency anemia Polymyalgia rheumatica Small vessel disease, cerebrovascular Chronic anticoagulation Paroxysmal atrial fibrillation Coronary artery disease Microscopic colitis Chronic diarrhea Exocrine pancreatic insufficiency COVID-19 Cervical arthritis Pneumonia Chronic obstructive pulmonary disease, unspecified Dyslipidemia Essential hypertension Gastro-esophageal reflux disease without esophagitis Multifocal atrial tachycardia Surgical History Surgical History History of heart artery stent History of cardiac catheterization History of bilateral knee replacement History of bilateral carpal tunnel release History of colonoscopy with polypectomy History of coronary artery bypass graft x 2 (12/2013) History of Achilles tendon repair History of spinal surgery Lumbar micro discectomy infusion. History of mitral valve repair History of shoulder surgery History of cataract extraction Left History of hand surgery trigger finger, thumb Family History Family History Mother Cerebrovascular accident Family history of diabetes mellitus in first degree relative Family history of coronary artery disease Acute myocardial infarction Diabetes mellitus Father Carcinoma of colon Family history of lung cancer Family history of malignant neoplasm of esophagus Sibling Liver disease Liver transplant recipient Other Family history of malignant neoplasm of brain Family history of malignant neoplasm of stomach Social History Social History Social History: Surrogate medical decision maker: Filippo Clifford, spouse. Code status: Full code. Smoking status: Never smoker Second hand tobacco smoke exposure: Yes Alcohol intake: current Drinks per week: 1 Alcohol use details: Rare alcohol use in moderation. Substance use: never Substance use type: does not use Do You Feel Safe in your Home?: Yes Lack of Transportation: No Lack of Food: Never True Current Housing: I Have Housing Concerned About Future Housing: No Difficulty Paying Gas/Electric Bills: No Difficulty Paying for Meds: No Currently Unemployed: No Education: High School Diploma/GED Difficulty w/ Childcare or Family Care: No Living arrangements: with family Additional living arrangements comments: Lives in [place] spouse. Occupation/Education: retired Additional occupation/education comments: Worked in [employer]. Spiritual care concerns: No Meds Home Medications and Allergies Home Medications ?Medication ?Instructions ?Recorded ?Confirmed ?Type leflunomide 20 mg tablet 20 mg PO HS 07/04/19 5 History omega 5-ghp-azw-fish oil 100 2 cap PO .q12hr 06/12/23 04/27/25 History mg-160 mg-1,000 mg capsule (Fish Oil) arformoterol 15 mcg/2 mL solution See Rx Instructions .Route 06/16/24 04/27/25 Rx for nebulization .COMPLEX #30 ea evolocumab 140 mg/mL subcutaneous 140 mg subcut .every 2 weeks #2 mL 11/10/24 04/27/25 Rx pen injector (Angelika Freeman) metoprolol tartrate 25 mg tablet See Rx Instructions . Route 01/05/25 04/27/25 Rx .COMPLEX #180 tabs rivaroxaban 20 mg tablet (Xarelto) See Rx Instructions .Route 01/10/25 04/27/25 Rx .COMPLEX #30 tabs albuterol sulfate 90 mcg/actuation 2 inh inhalation Q6 H PRN shortness 02/06/25 04/27/25 Rx aerosol inhaler of breath or wheezing #8.5 g miguel furosemide 40 mg tablet See Rx Instructions .Route 0 02/13/25 04/27/25 Rx .COMPLEX #90 tabs mirtazapine 7.5 mg tablet 7.5 mg PO QHS #30 tabs 03/0104/27/25 Rx pravastatin 10 mg tablet See Rx Instructions .Route 0 03/07/25 04/27/25 Rx .COMPLEX #90 tabs tirzepatide 5 mg/0.5 mL 5 mg (0.5 mL) subcut WEEKLY #2 mL 03/12/25 04/27/25 Rx subcutaneous pen injector pramipexole 0.5 mg tablet 0.5 mg PO HS #90 tabs 04/27/25 Rx pantoprazole 40 mg tablet,delayed 40 mg PO QAM #90 tab s 04/02/25 04/27/25 Rx release potassium chloride 10 mEq oral 10 meq PO DAILY #30 ea 04/17/25 04/27/25 Rx packet (Pokonza) metformin 500 mg tablet,extended 1,000 mg PO QPM 04/2704/27/25 History release 24 hr sotalol 80 mg tablet 80 mg PO Q12H 04/27/2504/27 History Allergies Allergy/AdvReac Type Severity Reaction Status Date / Time ciprofloxacin Allergy Mild Unknown Verified 04/27/25 15:22 codeine Allergy Mild Vomiting Verified 04/27/25 15:22 levofloxacin Allergy Unknown Unknown Verified 04/27/25 15:22 lisinopril Allergy Unknown Unknown Verified 04/27/25 15:22 amoxicillin (From Augmentin) AdvReac Severe Confusion Verified 04/27/25 15:22 clavulanic acid (From AdvReac Severe Confusion Verified 04/27/25 15:22 Augmentin) tramadol AdvReac Mild Vomiting Verified 04/27/25 15:22 Vital Signs Vital Signs - 24 hr 04/27/25 11:14 04/27/25 11:22 04/27/25 11:22 Temperature 98.1 F Pulse Rate 106 H 110 H 108 H Respiratory Rate 20 28 H Blood Pressure 134/85 Pulse Oximetry 85 L 91 Oxygen Delivery Room Air Oxygen Flow Rate 04/27/25 11:23 04/27/25 11:30 04/27/25 11:31 Temperature Pulse Rate 107 H 103 H Respiratory Rate 25 H 25 H Blood Pressure 130/108 H Pulse Oximetry 92 95 94 Oxygen Delivery Nasal Cannula Oxygen Flow Rate 4 04/27/25 11:33 04/27/25 11:45 04/27/25 11:46 Temperature Pulse Rate 98 95 98 Respiratory Rate 27 H 28 H 27 H Blood Pressure 127/95 H 137/79 Pulse Oximetry 93 92 93 Oxygen Delivery Oxygen Flow Rate 04/27/25 12:00 04/27/25 12:01 04/27/25 12:15 Temperature Pulse Rate 101 H 101 H 101 H Respiratory Rate 25 H 33 H 26 H Blood Pressure 130/75 Pulse Oximetry 95 96 94 Oxygen Delivery Oxygen Flow Rate 04/27/25 12:16 04/27/25 12:30 04/27/25 12:31 Temperature Pulse Rate 97 95 101 H Respiratory Rate 21 H 23 H 25 H Blood Pressure 130/74 124/84 Pulse Oximetry 93 95 96 Oxygen Delivery Oxygen Flow Rate 04/27/25 12:45 04/27/25 12:46 04/27/25 13:00 Temperature Pulse Rate 102 H 104 H 89 Respiratory Rate 27 H 23 H 25 H Blood Pressure 133/115 H Pulse Oximetry 90 92 95 Oxygen Delivery Oxygen Flow Rate 04/27/25 13:02 04/27/25 13:24 04/27/25 13:30 Temperature Pulse Rate 96 84 95 Respiratory Rate 23 H 30 H 29 H Blood Pressure 134/76 Pulse Oximetry 96 95 95 Oxygen Delivery Oxygen Flow Rate 04/27/25 13:35 Temperature Pulse Rate 95 Respiratory Rate 21 H Blood Pressure 123/105 H Pulse Oximetry 93 Oxygen Delivery Oxygen Flow Rate Exam Narrative: General: well appearing, appears stated age. HEENT: normocephalic, atraumatic. Mucous membranes moist. EOMI, PERRLA, bilateral sclera anicteric, no conjunctival injection. Neck supple without JVD, lymphadenopathy, or bruit. Respiratory: clear to ascultation bilaterally. No rales/rhonic/wheezes. Cardiovascular: Regular rate and rhythm, normal S1-S2 upon ascultation. No murmurs, rubs, or clicks. PMI is nondisplaced, capillary refill less than 3 second. Abdomen: Soft, round, no pulsatile masses, nondistended and nontender. No rebound, no guarding. No CVA tenderness, no hepatosplenomegaly. Bowel sounds present to all four quadrants. No high pitch or tinkling sounds, resonant to percussion. Extremities: No cyanosis, clubbing, or edema present. Pulses are palpable 2/2. Active ROM to all four extremities. Neuro: Alert and orientated x 4. PERRLA. Cranial nerves 2-12 intact without focal deficit. Skin: Warm, dry, and intact, without rash, erythema, or lesion. Psych: pleasant, cooperative, normal speech, normal affect, no hallucinations, no dysarthia H&P: Results Labs Labs: Short CBC 04/27/25 Range/Units 11:28 WBC 8.9 (4.5-10.0) K/mm3 Hgb 12.6 (12.0-15.0) g/dL Hct 39.2 (37.0-47.0) % Plt Count 288 (150-375) k/mm3 BMP 04/27/25 11:28 Sodium 134 L Potassium 2.9 L Chloride 95 L Carbon Dioxide 32 H BUN 20 H Creatinine 0.94 Glucose 149 H Calcium 11.9 H Liver Function 04/27/25 Range/Units 11:28 Total Bilirubin 1.2 (0.2-1.3) mg/dL AST 71 H (14-36) U/L ALT 55 H (6-35) U/L Alkaline Phosphatase 336 H (38-126) U/L Albumin 3.8 (3.5-5.1) g/dL Urine 04/27/25 Range/Units 12:37 Urine Color Yellow (Yellow) Urine Appearance Clear (Clear) Urine pH 5.5 (5.0-9.0) Ur Specific [place] 1.022 (1.001-1.035) Urine Protein 1+ H (Negative) mg/dL Urine Glucose (UA) Negative (Negative) mg/dL Assessment and Plan Assessment and plan (1) Fall: Code(s): W19.XXXA - Unspecified fall, initial encounter Status: Acute Assessment and Plan: Deconditioning versus infection versus hypoxia PT OT eval and treat (2) UTI (urinary tract infection): Code(s): N39.0 - Urinary tract infection, site not specified Status: Acute Assessment and Plan: Rocephin IVF Culture and sensitivity pending (3) Acute hypokalemia: Code(s): E87.6 - Hypokalemia Status: Acute Assessment and Plan: 2.9 on arrival 40 IV potassium given in ED Recheck potassium 2.7 Forty IV and 40 p.o. 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: without senior living use Qualified Code(s): E11.21 - Type 2 diabetes mellitus with diabetic nephropathy Code(s): E11.21 - Type 2 diabetes mellitus with diabetic nephropathy Status: Acute Assessment and Plan: Accu-Cheks a.cYuval HS Diabetic diet SSI Hold home metformin (6) 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: Code(s): I25.719 - Atherosclerosis of autologous vein coronary artery bypass graft(s) with unspecified angina pectoris Status: Chronic Assessment and Plan: Continue Xarelto, sotalol and statin and Lasix (7) Rheumatoid arthritis: Qualifiers: Rheumatoid arthritis location: unspecified site Rheumatoid factor presence: with rheumatoid factor Qualified Code(s): M05.9 - Rheumatoid arthritis with rheumatoid factor, unspecified Code(s): M06.9 - Rheumatoid arthritis, unspecified Status: Acute Assessment and Plan: Continue home meds (8) Dyslipidemia: Code(s): E78.5 - Hyperlipidemia, unspecified Status: Acute Assessment and Plan: Continue statin Quality VTE Prophylaxis VTE prophylaxis: mechanical ordered Hospitalist MIPS Advance Care Plan I have confirmed that the patient's Advanced Care Plan is present, code status is documented, or surrogate decision maker is listed in patient medical record.: Yes Medication Reconciliation I have utilized all available resources to obtain, update and review the patients current medications (includes all prescriptions, OTC, herbals, cannabis, and nutritional supplements).: Yes
--- NOTE | 2025-04-27 14:04 | PC.NURSE ---
ed rt notified of breathing treatment order.
[2025-04-27] MEDS: ALBUTEROL SULFATE NEB 2.5 MG/3 ML INH INHALATION ×2 (14:05→20:09)
[2025-04-27] MEDS: IPRATROPIUM 0.5 MG/ALBUTEROL SULFATE 2.5 MG AMPUL.NEB 3 ML INHALATION ×2 (14:05→20:09)
--- NOTE | 2025-04-27 15:20 | ADMGEN ---
This patient, Laura Clifford, was admitted to Medical Room 349-01. Patient/family oriented to hospital policies and general routines including ID bracelet, bed and alarms, visiting hours, pain management, procedures, bathroom and other care routines, personal items, smoking policy, room service/diet, and visiting hours. Information on how to activate the Rapid Response Team has been discussed. Patient/Family are encouraged to report perceived risks to care and to ask questions if they do not understand what they are told or what they should do.
[2025-04-27 20:01] LABS: Potassium 2.7 mmol/L (3.4-5.0)
[2025-04-27] MEDS: POTASSIUM CHLORIDE INJ 40 MEQ in SODIUM CHLORIDE 0.9% IV 500 ML 130 MEQ IVPB (21:01)
[2025-04-28] VITALS (14 sets, daily range): BP systolic 126–148; BP diastolic 58–89; PULSE 74–112; RESP 16–20; TEMP 36.4–36.7; O2SAT 96–100
[2025-04-28] MEDS: METOPROLOL TARTRATE 25 MG TABLET BY MOUTH ×3 (01:25→20:48)
[2025-04-28] MEDS: SOTALOL HCL 80 MG TABLET PO ×3 (01:25→20:47)
[2025-04-28] MEDS: LEFLUNOMIDE 20 MG TABLET PO ×2 (01:27→20:46)
[2025-04-28] MEDS: MIRTAZAPINE 7.5 MG TABLET PO (01:27)
[2025-04-28] MEDS: PRAMIPEXOLE 0.5 MG TABLET PO ×2 (01:27→20:49)
--- NOTE | 2025-04-28 04:56 | PCRCNOTE ---
Patient did not receive 0200 updraft treatment due to not wanting to be awakened. Tx to resume @ 0800.
[2025-04-28 05:49] LABS: Hematocrit 33.8 % (37.0-47.0); Hemoglobin 10.6 g/dL (12.0-15.0); Immature Granulocyte Percent A 0.5 % (0-0.5); Lymphocytes Absolute Auto 1.03 K/mm3 (0.9-3.2); Mean Corpuscular HGB Conc 31.4 g/dl (32-36); Mean Corpuscular Hemoglobin 28.4 pg (26-34); Mean Corpuscular Volume 90.6 fl (80-100); Nucleated Red Blood Cells Absolute Auto 0.000 K/mm3 (0.0-0.012); Nucleated Red Blood Cells Perc 0.0 % (0.0-0.2); Platelet Count Result 213 k/mm3 (150-375); Red Blood Count 3.73 M/mm3 (4.2-5.4); White Blood Count 9.6 K/mm3 (4.5-10.0)
[2025-04-28 06:11] LABS: Alanine Aminotransferase 41 U/L (6-35); Albumin Level 3.1 g/dL (3.5-5.1); Alkaline Phosphatase 246 U/L (38-126); Anion Gap 1 mmol/L (4-12); Aspartate Amino Transferase 50 U/L (14-36); Bilirubin,Total 0.9 mg/dL (0.2-1.3); Blood Urea Nitrogen 18 mg/dL (7-17); Calcium 11.6 mg/dL (8.4-10.2); Carbon Dioxide 30 mmol/L (22-30); Chloride 103 mmol/L (98-107); Estimated CRCL calculation 48 ml/min; Estimated Glomerular Filt Rate > 60; Glucose 120 mg/dL (65-110); Potassium 3.6 mmol/L (3.4-5.0); Sodium 134 mmol/L (137-145); Total Protein 5.8 g/dL (6.3-8.2)
[2025-04-28] MEDS: IPRATROPIUM 0.5 MG/ALBUTEROL SULFATE 2.5 MG AMPUL.NEB 3 ML INHALATION (07:37)
[2025-04-28] MEDS: FUROSEMIDE 40 MG TABLET BY MOUTH (09:45)
[2025-04-28] MEDS: PRAVASTATIN SODIUM 10 MG TABLET BY MOUTH (09:45)
[2025-04-28] MEDS: DOCUSATE SODIUM 100 MG CAPSULE PO (09:45)
[2025-04-28] MEDS: PANTOPRAZOLE 40 MG TABLET PO (09:48)
[2025-04-28] MEDS: ACETAMINOPHEN 325 MG TABLET 650 MG PO (10:59)
--- NOTE | 2025-04-28 11:39 | P.PNIM_ITS ---
Progress Note: A&P Assessment and Plan (1) Fall: Code(s): W19.XXXA - Unspecified fall, initial encounter Status: Acute Assessment and Plan: patient with increasing generalized weakness at home had fall and was unable to get up on her own did report she was not wearing her chronic oxygen of 4 L at that time this could likely be secondary to hypoxia versus UTI * PT OT eval and treat * Pain management with norco and Voltaren cream BL knee/thigh pain HX OA with bilateral knee replacements (2) UTI (urinary tract infection): Code(s): N39.0 - Urinary tract infection, site not specified Status: Acute Assessment and Plan: * IV Rocephin Culture and sensitivity pending (3) Acute hypokalemia: Code(s): E87.6 - Hypokalemia Status: Acute Assessment and Plan: 2.9 on arrival, 40 IV potassium given in ED, Recheck potassium 2.7, 40 meq IV and 40 p.o. ordered * Repeat labs in the morning * replenish as needed * Telemetry (4) Fatty liver disease, nonalcoholic: Code(s): K76.0 - Fatty (change of) liver, not elsewhere classified Status: Acute Assessment and Plan: patient with elevated liver enzymes does have history of fatty liver disease * trending liver enzymes (5) Type 2 diabetes mellitus with diabetic nephropathy: Qualifiers: Diabetes mellitus residential insulin use: without residential use Qualified Code(s): E11.21 - Type 2 diabetes mellitus with diabetic nephropathy Code(s): E11.21 - Type 2 diabetes mellitus with diabetic nephropathy Status: Acute Assessment and Plan: * Sneha-Alan melendrez HS * Diabetic diet * SSI * Hold home metformin/GLP-1 * hypoglycemic protocol (6) 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: Code(s): I25.719 - Atherosclerosis of autologous vein coronary artery bypass graft(s) with unspecified angina pectoris Status: Chronic Assessment and Plan: * Continue Xarelto, sotalol and statin and Lasix (7) Rheumatoid arthritis: Qualifiers: Rheumatoid arthritis location: unspecified site Rheumatoid factor presence: with rheumatoid factor Qualified Code(s): M05.9 - Rheumatoid arthritis with rheumatoid factor, unspecified Code(s): M06.9 - Rheumatoid arthritis, unspecified Status: Acute Assessment and Plan: * continued Leflunomide (8) Dyslipidemia: Code(s): E78.5 - Hyperlipidemia, unspecified Status: Acute Assessment and Plan: * Continue statin Plan Code status: Full code per patient DVT prophylaxis: Xarelto Stress ulcer prophylaxis: Protonix 40 daily home medication PT/OT notes: PT/OT pending Disposition: Patient continues admission for further evaluation of unsteady gait, weakness and UTI pending PT/OT evaluaton for discharge planning. Time Spent With Patient Time with patient: 15 - 25 minutes Subjective Date/time seen: 04/28/25 11:39 Interval history: Patient is a 75-year-old female who was admitted for generalized worsening weakness. Patient has chronic acute respiratory failure with hypoxia on 4 L of oxygen at home found to have suspicion for urinary tract infection was admitted for further evaluation and treatment and PT/OT evaluation. 04/28/2025: Patient sitting on the side of the bed still with mild pain to bilateral thighs to knee. Patient denies COB, CP, ABD pain but still reporting increased weakness from her baseline. Review of Systems Review of Systems: 12 systems were reviewed and are negativ e except for as per HPI. All systems reviewed & are unremarkable except as noted in HPI and below Exam Narrative: General: well appearing, frail female appears stated age. Respiratory: clear to auscultation bilaterally Cardiovascular: RRR Abdomen: Soft, round, Bowel sounds present Extremities: No cyanosis, clubbing, or edema present. Spine: kyphosis Neuro: Alert and orientated x 4. Skin: Warm, dry, and intact, without rash, erythema, or lesion. Psych: pleasant, cooperative Objective Data Vital Signs Vital Signs: Vital Signs - 24 hr 04/27/25 11:45 08/28/25 11:46 04/27/25 12:00 Temperature Pulse Rate 95 98 101 H Respiratory Rate 28 H 27 H 25 H Blood Pressure 137/79 Pulse Oximetry 92 93 95 Oxygen Delivery Oxygen Flow Rate 04/27/25 12:01 04/27/25 12:15 04/27/25 12:16 Temperature Pulse Rate 101 H 101 H 97 Respiratory Rate 33 H 26 H 21 H Blood Pressure 130/75 130/74 Pulse Oximetry 96 94 93 Oxygen Delivery Oxygen Flow Rate 04/27/25 12:30 04/27/25 12:31 04/27/25 12:45 Temperature Pulse Rate 95 101 H 102 H Respiratory Rate 23 H 25 H 27 H Blood Pressure 124/84 133/115 H Pulse Oximetry 95 96 90 Oxygen Delivery Oxygen Flow Rate 04/27/25 12:46 04/27/25 13:00 04/27/25 13:02 Temperature Pulse Rate 104 H 89 96 Respiratory Rate 23 H 25 H 23 H Blood Pressure 134/76 Pulse Oximetry 92 95 96 Oxygen Delivery Oxygen Flow Rate 04/27/25 13:24 04/27/25 13:30 04/27/25 13:35 Temperature Pulse Rate 84 95 95 Respiratory Rate 30 H 29 H 21 H Blood Pressure 123/105 H Pulse Oximetry 95 95 93 Oxygen Delivery Oxygen Flow Rate 04/27/25 13:36 04/27/25 13:45 04/27/25 14:00 Temperature Pulse Rate 89 102 H 91 Respiratory Rate 22 H 26 H 25 H Blood Pressure Pulse Oximetry 94 95 95 Oxygen Delivery Oxygen Flow Rate 04/27/25 14:01 04/27/25 14:05 04/27/25 14:13 Temperature Pulse Rate 94 80 92 Respiratory Rate 29 H 18 18 Blood Pressure 135/75 Pulse Oximetry 95 Oxygen Delivery Oxygen Flow Rate 04/27/25 14:15 04/27/25 14:16 04/27/25 14:30 Temperature Pulse Rate 91 91 92 Respiratory Rate 24 H 28 H 25 H Blood Pressure 142/67 H Pulse Oximetry 97 93 93 Oxygen Delivery Oxygen Flow Rate 04/27/25 14:31 04/27/25 14:45 04/27/25 14:46 Temperature Pulse Rate 95 97 93 Respiratory Rate 24 H 24 H 27 H Blood Pressure 135/82 137/75 Pulse Oximetry 92 95 Oxygen Delivery Oxygen Flow Rate 04/27/25 14:55 04/27/25 15:31 04/27/25 16:05 Temperature 98.3 F 98.1 F Pulse Rate 92 86 92 Respiratory Rate 16 18 Blood Pressure 137/75 148/76 H Pulse Oximetry 95 93 Oxygen Delivery Oxygen Flow Rate 04/27/25 16:44 04/27/25 20:00 04/27/25 20:09 Temperature Pulse Rate 89 100 Respiratory Rate 18 Blood Pressure Pulse Oximetry 93 Oxygen Delivery Nasal Cannula Oxygen Flow Rate 4 04/27/25 20:19 04/27/25 20:23 04/27/25 20:57 Temperature 97.2 F L Pulse Rate 100 104 H 88 Respiratory Rate 18 24 H Blood Pressure 121/55 L Pulse Oximetry 93 95 Oxygen Delivery Nasal Cannula Oxygen Flow Rate 4 04/28/25 00:00 04/28/25 01:25 04/28/25 01:25 Temperature Pulse Rate 100 112 H 112 H Respiratory Rate Blood Pressure Pulse Oximetry Oxygen Delivery Oxygen Flow Rate 04/28/25 04:00 04/28/25 06:00 04/28/25 07:37 Temperature 97.6 F Pulse Rate 97 91 Respiratory Rate 20 Blood Pressure 143/78 H Pulse Oximetry 96 99 Oxygen Delivery Nasal Cannula Oxygen Flow Rate 4 04/28/25 07:37 04/28/25 07:47 04/28/25 09:45 Temperature Pulse Rate 85 87 74 Respiratory Rate 16 16 Blood Pressure Pulse Oximetry Oxygen Delivery Oxygen Flow Rate 04/28/25 09:48 04/28/25 10:21 Temperature Pulse Rate 74 Respiratory Rate Blood Pressure Pulse Oximetry Oxygen Delivery Nasal Cannula Oxygen Flow Rate 4 Intake/Output Intake/Output: Intake & Output 04/25/25 04/26/25 04/27/25 04/28/25 23:59 23:59 23:59 23:59 Intake Total 480 1200 Balance 480 1200 Meds/Results Medications: Active Medications Generic Name Dose Route Start Last Admin Trade Name Freq PRN Reason Stop Dose Admin Acetaminophen 650 mg 04/27/25 17:04 04/28/25 10:59 Acetaminophen 325 Mg Tablet PO 650 mg Q4H PRN Administration Mild Pain (1-3) or Fever Albuterol 2.5 mg 04/27/25 14:00 04/28/25 04:51 Albuterol Sulfate Neb 2.5 Mg/3 Ml Inh INHALATION Not Given Q6HRT [facility] Albuterol/Ipratropium 3 ml 04/27/25 14:00 04/28/25 07:37 Ipratropium 0.5 Mg/Albuterol Sulfate 2.5 Mg Ampul.Neb 3 Ml INHALATION 3 ml Q6HRT IVONE Administration Dextrose 12.5 gm 04/27/25 17:05 Dextrose 50% 25 Gm/50 Ml Syringe IV PUSH PRN PRN Hypoglycemia Protocol Docusate Sodium 100 mg 04/28/25 09:00 04/28/25 09:45 Docusate Sodium 100 Mg Capsule PO 100 mg BID IVONE Administration Furosemide 40 mg 04/28/25 09:00 04/28/25 09:45 Furosemide 40 Mg Tablet BY MOUTH 40 mg DAILY IVONE Administration Glucagon 1 mg 04/27/25 17:05 Glucagon For Inj 1 Mg Vial IM PRN PRN Hypoglycemia Protocol Glucose 15 gm 04/27/25 17:05 Glucose Oral Gel 15 Gm Of Glucse In 37.5 Gm Tube PO PRN PRN Hypoglycemia Protocol Ceftriaxone Sodium 1 gm/ 50 mls @ 100 mls/hr 04/27/25 17:05 04/28/25 01:20 Sodium Chloride IVPB Not Given Q24H IVONE Dextrose 1,000 mls @ 100 mls/hr 04/27/25 17:05 Dextrose 5% 1,000 Ml IVPB PRN PRN Hypoglycemia Protocol Insulin Aspart 2 - 5 units 04/28/25 08:00 04/28/25 09:39 Insulin Aspart (*Bkc) 100 Units/Ml SUB-Q Not Given TIDWM IVONE Protocol Insulin Aspart 1 - 2 units 04/27/25 21:00 04/27/25 21:10 Insulin Aspart (*Bkc) 100 Units/Ml SUB-Q Not Given HS IVONE Protocol Leflunomide 20 mg 04/27/25 22:55 04/28/25 01:27 Leflunomide 20 Mg Tablet PO 20 mg HS IVONE Administration Metoprolol Tartrate 25 mg 04/27/25 22:30 04/28/25 09:48 Metoprolol Tartrate 25 Mg Tablet BY MOUTH 25 mg Q12HR IVONE Administration Mirtazapine 7.5 mg 04/27/25 23:00 04/28/25 01:27 Mirtazapine 7.5 Mg Tablet PO 7.5 mg QHS IVONE Administration Pantoprazole Sodium 40 mg 04/28/25 09:00 04/28/25 09:48 Pantoprazole 40 Mg Tablet PO 40 mg QAM [facility] Administration Pramipexole Dihydrochloride 0.5 mg 04/27/25 23:00 04/28/25 01:27 Pramipexole 0.5 Mg Tablet PO 0.5 mg HS [facility] Administration Pravastatin Sodium 10 mg 04/28/25 09:00 04/28/25 09:45 Pravastatin Sodium 10 Mg Tablet BY MOUTH 10 mg DAILY [facility] Administration Rivaroxaban 20 mg 04/28/25 17:00 Rivaroxaban 20 Mg Tablet BY MOUTH DAILY@1700 [facility] Sotalol HCl 80 mg 04/27/25 23:00 04/28/25 09:45 Sotalol Hcl 80 Mg Tablet PO 80 mg Q12HR IVONE Administration Radiology Results: ITS Impressions Chest X-Ray 04/27/25 13:28 IMPRESSION: 1: Chronic apical infiltrates which may represent atypical pneumonia, fibrosis or scarring. Labs Labs: Laboratory Results - last 24 hr 04/27/25 04/27/25 04/27/25 11:28 12:37 16:59 WBC 8.9 RBC 4.39 Hgb 12.6 Hct 39.2 MCV 89.3 MCH 28.7 MCHC 32.1 RDW 16.6 H Plt Count 288 MPV 11.7 H Immature Gran % (Auto) 0.7 H Neut % (Auto) 67.9 Lymph % (Auto) 12.6 L [place] % (Auto) 12.6 H Eos % (Auto) 5.3 H Baso % (Auto) 0.9 Lymph # (Auto) 1.12 [place] # (Auto) 1.1 H Eos # (Auto) 0.5 H Baso # (Auto) 0.1 Abs Immat Gran (auto) 0.06 H Absolute Neuts (auto) 6.0 Absolute Nucleated RBC 0.000 Nucleated RBC % 0.0 Sodium 134 L Potassium 2.9 L Chloride 95 L Carbon Dioxide 32 H Anion Gap 7 BUN 20 H Creatinine 0.94 Estim Creat Clear Calc 43 Estimated GFR 58 L Glucose 149 H POC Capillary Glucose 113 H Calcium 11.9 H Total Bilirubin 1.2 AST 71 H ALT 55 H Alkaline Phosphatase 336 H Total Protein 7.1 Albumin 3.8 Urine Color Yellow Urine Appearance Clear Urine pH 5.5 Ur Specific Kramer 1.022 Urine Protein 1+ H Urine Glucose (UA) Negative Urine Ketones Negative Ur Blood (Man) Negative Urine Nitrate Negative Urine Bilirubin Negative Urine Urobilinogen 1.0 Add Ur Microanalysis Reviewed Leukocyte Esterase Rfl 1+ H Urine RBC 3-5 H Urine WBC 6-10 H Ur Squamous Epith Cells Occasional Calcium Oxalate Crystal Present Urine Bacteria 4+ H Urine Casts 11-20 Hyaline Casts 3-4 H 04/27/25 04/27/25 04/28/25 19:38 20:51 05:43 WBC 9.6 RBC 3.73 L Hgb 10.6 L Hct 33.8 L MCV 90.6 MCH 28.4 MCHC 31.4 L RDW 16.6 H Plt Count 213 MPV 11.7 H Immature Gran % (Auto) 0.5 Neut % (Auto) 71.7 Lymph % (Auto) 10.8 L [place] % (Auto) 12.1 H Eos % (Auto) 4.1 Baso % (Auto) 0.8 Lymph # (Auto) 1.03 [place] # (Auto) 1.2 H Eos # (Auto) 0.4 H Baso # (Auto) 0.1 Abs Immat Gran (auto) 0.05 H Absolute Neuts (auto) 6.8 H Absolute Nucleated RBC 0.000 Nucleated RBC % 0.0 Sodium 134 L Potassium 2.7 L* 3.6 Chloride 103 Carbon Dioxide 30 Anion Gap 1 L BUN 18 H Creatinine 0.84 Estim Creat Clear Calc 48 Estimated GFR > 60 Glucose 120 H POC Capillary Glucose 156 H Calcium 11.6 H Total Bilirubin 0.9 AST 50 H ALT 41 H Alkaline Phosphatase 246 H Total Protein 5.8 L Albumin 3.1 L Urine Color Urine Appearance Urine pH Ur Specific Kramer Urine Protein Urine Glucose (UA) Urine Ketones Ur Blood (Man) Urine Nitrate Urine Bilirubin Urine Urobilinogen Add Ur Microanalysis Leukocyte Esterase Rfl Urine RBC Urine WBC Ur Squamous Epith Cells Calcium Oxalate Crystal Urine Bacteria Urine Casts Hyaline Casts 04/28/25 04/28/25 06:26 08:46 WBC RBC Hgb Hct MCV MCH MCHC RDW Plt Count MPV Immature Gran % (Auto) Neut % (Auto) Lymph % (Auto) [place] % (Auto) Eos % (Auto) Baso % (Auto) Lymph # (Auto) [place] # (Auto) Eos # (Auto) Baso # (Auto) Abs Immat Gran (auto) Absolute Neuts (auto) Absolute Nucleated RBC Nucleated RBC % Sodium Potassium Chloride Carbon Dioxide Anion Gap BUN Creatinine Estim Creat Clear Calc Estimated GFR Glucose POC Capillary Glucose 133 H 132 H Calcium Total Bilirubin AST ALT Alkaline Phosphatase Total Protein Albumin Urine Color Urine Appearance Urine pH Ur Specific Kramer Urine Protein Urine Glucose (UA) Urine Ketones Ur Blood (Man) Urine Nitrate Urine Bilirubin Urine Urobilinogen Add Ur Microanalysis Leukocyte Esterase Rfl Urine RBC Urine WBC Ur Squamous Epith Cells Calcium Oxalate Crystal Urine Bacteria Urine Casts Hyaline Casts Quality VTE Prophylaxis VTE prophylaxis: mechanical ordered and pharmacologic ordered -Patient's previous records reviewed on admission -ER notes reviewed in detail on admission -discussed all findings and current treatment plan with patient/Family/POA -Consultations reviewed for recommendations -Patient's disposition for safe discharge discussed with case sealer Dictation performed by [employer] direct speech recognition software, therefore electrical mechanic variants and typographical errors may occur. Hospitalist MIPS Advance Care Plan I have confirmed that the patient's Advanced Care Plan is present, code status is documented, or surrogate decision maker is listed in patient medical record.: Yes Medication Reconciliation I have utilized all available resources to obtain, update and review the patients current medications (includes all prescriptions, OTC, herbals, cannabis, and nutritional supplements).: Yes The patient is not eligible for med reconciliation; the patient is in a emergent medical situation where delaying treatment would jeopardize the patients he alth.: No
[2025-04-28] MEDS: cefTRIAXone 1 GM in SODIUM CHLORIDE 0.9% IV 50 ML 100 ML IVPB (17:49)
[2025-04-28] MEDS: RIVAROXABAN 20 MG TABLET BY MOUTH (17:49)
[2025-04-28] MEDS: DICLOFENAC SODIUM 1% 100 GM GEL (*BKC) 1 APPLIC TOPICAL (17:50)
[2025-04-28] MEDS: SENNA/DOCUSATE SODIUM TABLET 1 TAB PO (20:45)
[2025-04-29] VITALS (8 sets, daily range): BP systolic 122–132; BP diastolic 62–88; PULSE 74–106; RESP 16–20; TEMP 36.5–37.1; O2SAT 95–98
[2025-04-29] MEDS: SOTALOL HCL 80 MG TABLET PO ×2 (09:00→22:45)
[2025-04-29] MEDS: METOPROLOL TARTRATE 25 MG TABLET BY MOUTH ×2 (09:02→22:45)
[2025-04-29] MEDS: PRAVASTATIN SODIUM 10 MG TABLET BY MOUTH (09:02)
[2025-04-29] MEDS: PANTOPRAZOLE 40 MG TABLET PO (09:03)
[2025-04-29] MEDS: FUROSEMIDE 40 MG TABLET BY MOUTH (09:03)
[2025-04-29 09:41] LABS: Hematocrit 38.3 % (37.0-47.0); Hemoglobin 12.0 g/dL (12.0-15.0); Mean Corpuscular HGB Conc 31.3 g/dl (32-36); Mean Corpuscular Hemoglobin 28.7 pg (26-34); Mean Corpuscular Volume 91.6 fl (80-100); Platelet Count Result 276 k/mm3 (150-375); Red Blood Count 4.18 M/mm3 (4.2-5.4); White Blood Count 8.6 K/mm3 (4.5-10.0)
[2025-04-29 10:15] LABS: Alanine Aminotransferase 57 U/L (6-35); Albumin Level 3.8 g/dL (3.5-5.1); Alkaline Phosphatase 289 U/L (38-126); Anion Gap 3 mmol/L (4-12); Aspartate Amino Transferase 64 U/L (14-36); Bilirubin,Total 0.8 mg/dL (0.2-1.3); Blood Urea Nitrogen 19 mg/dL (7-17); Calcium 12.7 mg/dL (8.4-10.2); Carbon Dioxide 32 mmol/L (22-30); Chloride 98 mmol/L (98-107); Estimated CRCL calculation 45 ml/min; Estimated Glomerular Filt Rate > 60; Glucose 151 mg/dL (65-110); Magnesium 1.5 mg/dL (1.6-2.3); Potassium 3.5 mmol/L (3.4-5.0); Sodium 133 mmol/L (137-145); Total Protein 6.9 g/dL (6.3-8.2)
[2025-04-29 13:57] LABS: Thyroid Stimulating Hormone 1.490 uIU/mL (0.465-4.680)
--- NOTE | 2025-04-29 14:32 | P.PNIM_ITS ---
Progress Note: A&P Assessment and Plan (1) Hypercalcemia: Code(s): E83.52 - Hypercalcemia Status: Acute Assessment and Plan: Patient was critical calcium of 12.7 likely secondary to rheumatoid arthritis however patient did state that she takes a vitamin D and multivitamin home. * Check PTH, vitamin-D a, vitamin-D * Start IV fluids at 125 mL per hour (2) Hypomagnesemia: Code(s): E83.42 - Hypomagnesemia Status: Acute Assessment and Plan: Magnesium level 1.5. * Replace with 2 g IV * Trend labs (3) Fall: Code(s): W19.XXXA - Unspecified fall, initial encounter Status: Acute Assessment and Plan: patient with increasing generalized weakness at home had fall and was unable to get up on her own did report she was not wearing her chronic oxygen of 4 L at that time this could likely be secondary to hypoxia versus UTI * PT OT eval and treat * Pain management with norco and Voltaren cream BL knee/thigh pain HX OA with bilateral knee replacements (4) UTI (urinary tract infection): Code(s): N39.0 - Urinary tract infection, site not specified Status: Acute Assessment and Plan: * IV Rocephin Culture grew Gram-negative bacilli. 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: Qualifiers: Diabetes mellitus residential insulin use: without residential use Qualified Code(s): E11.21 - Type 2 diabetes mellitus with diabetic nephropathy Code(s): E11.21 - Type 2 diabetes mellitus with diabetic nephropathy Status: Acute Assessment and Plan: * Sneha-Alan MCKEON * Diabetic diet * SSI * Hold home metformin/GLP-1 * hypoglycemic protocol (7) 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: Code(s): I25.719 - Atherosclerosis of autologous vein coronary artery bypass graft(s) with unspecified angina pectoris Status: Chronic Assessment and Plan: * Continue Xarelto, sotalol and statin and Lasix (8) Rheumatoid arthritis: Qualifiers: Rheumatoid arthritis location: unspecified site Rheumatoid factor presence: with rheumatoid factor Qualified Code(s): M05.9 - Rheumatoid arthritis with rheumatoid factor, unspecified Code(s): M06.9 - Rheumatoid arthritis, unspecified Status: Acute Assessment and Plan: * continued Leflunomide (9) Dyslipidemia: Code(s): E78.5 - Hyperlipidemia, unspecified Status: Acute Assessment and Plan: * Continue statin (10) Acute hypokalemia: Code(s): E87.6 - Hypokalemia Status: Resolved Assessment and Plan: 2.9 on arrival, 40 IV potassium given in ED, Recheck potassium 2.7, 40 meq IV and 40 p.o. ordered * Repeat labs in the morning * replenish as needed * Telemetry Plan Code status: Full code per patient DVT prophylaxis: Xarelto Stress ulcer prophylaxis: Protonix 40 daily home medication PT/OT notes: PT/OT pending Disposition: Patient continues admission for further evaluation of unsteady gait, weakness and UTI pending PT/OT evaluaton for discharge planning. Insurance authorization sent to [facility] for rehab. Time Spent With Patient Time with patient: 15 - 25 minutes Subjective Date/time seen: 04/29/25 14:32 Interval history: Patient is a 75-year-old female who was admitted for generalized worsening weakness. Patient has chronic acute respiratory failure with hypoxia on 4 L of oxygen at home found to have suspicion for urinary tract infection was admitted for further evaluation and treatment and PT/OT evaluation. 04/29/2025: Patient up in the chair this morning. at bedside. Patient continues to report weakness however is working with physical therapy. Plan for discharge to rehab. Patient was critical calcium of 12.7 however is asymptomatic. Review of Systems Review of Systems: 12 systems were reviewed and are negativ e except for as per HPI. All systems reviewed & are unremarkable except as noted in HPI and below Exam Narrative: General: well appearing, frail female appears stated age. Respiratory: clear to auscultation bilaterally Cardiovascular: RRR Abdomen: Soft, round, Bowel sounds present Extremities: No cyanosis, clubbing, or edema present. Spine: kyphosis Neuro: Alert and orientated x 4. Skin: Warm, dry, and intact, without rash, erythema, or lesion. Psych: pleasant, cooperative Objective Data Vital Signs Vital Signs: Vital Signs - 24 hr 04/28/25 14:45 04/28/25 20:00 04/28/25 20:41 Temperature 98.1 F Pulse Rate 78 Respiratory Rate 18 Blood Pressure 148/89 H Pulse Oximetry 98 98 Oxygen Delivery Nasal Cannula Nasal Cannula Oxygen Flow Rate 4 4 04/28/25 20:47 04/28/25 20:48 04/29/25 06:00 Temperature 98.7 F Pulse Rate 78 78 75 Respiratory Rate 18 Blood Pressure 130/88 Pulse Oximetry 96 Oxygen Delivery Oxygen Flow Rate 04/29/25 08:49 04/29/25 09:00 04/29/25 09:00 Temperature Pulse Rate 101 H 106 H Respiratory Rate 20 Blood Pressure Pulse Oximetry 98 95 Oxygen Delivery Nasal Cannula Nasal Cannula Oxygen Flow Rate 4 2 04/29/25 09:02 Temperature Pulse Rate 106 H Respiratory Rate Blood Pressure Pulse Oximetry Oxygen Delivery Oxygen Flow Rate Intake/Output Intake/Output: Intake & Output 04/26/25 04/27/25 04/28/25 04/29/25 23:59 23:59 23:59 23:59 Intake Total 480 3780 880 Balance 480 3780 880 Meds/Results Medications: Active Medications Generic Name Dose Route Start Last Admin Trade Name Freq PRN Reason Stop Dose Admin Acetaminophen 650 mg 04/27/25 17:04 04/28/25 10:59 Acetaminophen 325 Mg Tablet PO 650 mg Q4H PRN Administration Mild Pain (1-3) or Fever Hydrocodone Bitart/Acetaminophen 1 tab 04/28/25 14:50 Hydrocodone/Acetaminophen (*Crx) 5-325 Mg Tablet PO Q4H PRN Pain Rated 4-6 Albuterol 2.5 mg 04/28/25 13:31 Albuterol Sulfate Neb 2.5 Mg/3 Ml Inh INHALATION Q6HRT PRN Wheezing Albuterol/Ipratropium 3 ml 04/28/25 13:31 Ipratropium 0.5 Mg/Albuterol Sulfate 2.5 Mg Ampul.Neb 3 Ml INHALATION Q6HRT PRN Wheezing Dextrose 12.5 gm 04/27/25 17:05 Dextrose 50% 25 Gm/50 Ml Syringe IV PUSH PRN PRN Hypoglycemia Protocol Diclofenac Sodium 1 applic 04/28/25 17:00 04/29/25 12:24 Diclofenac Sodium 1% 100 Gm Gel (*Bkc) TOPICAL Not Given QID IVONE Furosemide 40 mg 04/28/25 09:00 04/29/25 09:03 Furosemide 40 Mg Tablet BY MOUTH 40 mg DAILY IVONE Administration Glucagon 1 mg 04/27/25 17:05 Glucagon For Inj 1 Mg Vial IM PRN PRN Hypoglycemia Protocol Glucose 15 gm 04/27/25 17:05 Glucose Oral Gel 15 Gm Of Glucse In 37.5 Gm Tube PO PRN PRN Hypoglycemia Protocol Ceftriaxone Sodium 1 gm/ 50 mls @ 100 mls/hr 04/27/25 17:05 04/28/25 17:49 Sodium Chloride IVPB 100 mls/hr Q24H IVONE Administration Dextrose 1,000 mls @ 100 mls/hr 04/27/25 17:05 Dextrose 5% 1,000 Ml IVPB PRN PRN Hypoglycemia Protocol Magnesium Sulfate 2 gm in 50 mls @ 25 mls/hr 04/29/25 12:59 Magnesium Sulf 2 Gm/Water 50ml IVPB 04/29/25 14:58 ONCE ONE Sodium Chloride 1,000 mls @ 125 mls/hr 04/29/25 13:05 Normal Saline Iv IV CONT .Q8H [facility] Insulin Aspart 2 - 5 units 04/28/25 08:00 04/29/25 12:12 Insulin Aspart (*Bkc) 100 Units/Ml SUB-Q Not Given TIDWM [facility] Protocol Insulin Aspart 1 - 2 units 04/27/25 21:00 04/28/25 21:09 Insulin Aspart (*Bkc) 100 Units/Ml SUB-Q Not Given HS [facility] Protocol Leflunomide 20 mg 04/27/25 22:55 04/28/25 20:46 Leflunomide 20 Mg Tablet PO 20 mg HS IVONE Administration Metoprolol Tartrate 25 mg 04/27/25 22:30 04/29/25 09:02 Metoprolol Tartrate 25 Mg Tablet BY MOUTH 25 mg Q12HR IVONE Administration Mirtazapine 7.5 mg 04/27/25 23:00 04/28/25 21:00 Mirtazapine 7.5 Mg Tablet PO Not Given QHS IVONE Pantoprazole Sodium 40 mg 04/28/25 09:00 04/29/25 09:03 Pantoprazole 40 Mg Tablet PO 40 mg QAM IVONE Administration Pramipexole Dihydrochloride 0.5 mg 04/27/25 23:00 04/28/25 20:49 Pramipexole 0.5 Mg Tablet PO 0.5 mg HS IVONE Administration Pravastatin Sodium 10 mg 04/28/25 09:00 04/29/25 09:02 Pravastatin Sodium 10 Mg Tablet BY MOUTH 10 mg DAILY IVONE Administration Rivaroxaban 20 mg 04/28/25 17:00 04/28/25 17:49 Rivaroxaban 20 Mg Tablet BY MOUTH 20 mg DAILY@1700 IVONE Administration Senna/Docusate Sodium 1 tab 04/28/25 21:00 04/28/25 20:45 Senna/Docusate Sodium Tablet PO 1 tab HS IVONE Administration Sotalol HCl 80 mg 04/27/25 23:00 04/29/25 09:00 Sotalol Hcl 80 Mg Tablet PO 80 mg Q12HR IVONE Administration Radiology Results: ITS Impressions Chest X-Ray 04/27/25 13:28 IMPRESSION: 1: Chronic apical infiltrates which may represent atypical pneumonia, fibrosis or scarring. Labs Labs: Laboratory Results - last 24 hr 04/28/25 04/28/25 04/29/25 17:11 20:40 08:07 WBC RBC Hgb Hct MCV MCH MCHC RDW Plt Count MPV Sodium Potassium Chloride Carbon Dioxide Anion Gap BUN Creatinine Estim Creat Clear Calc Estimated GFR Glucose POC Capillary Glucose 142 H 151 H 132 H Calcium Magnesium Total Bilirubin AST ALT Alkaline Phosphatase Total Protein Albumin Vitamin D 25-Hydroxy TSH 04/29/25 04/29/25 04/29/25 09:33 09:35 11:50 WBC 8.6 RBC 4.18 L Hgb 12.0 Hct 38.3 MCV 91.6 MCH 28.7 MCHC 31.3 L RDW 16.8 H Plt Count 276 MPV 11.7 H Sodium 133 L Potassium 3.5 Chloride 98 Carbon Dioxide 32 H Anion Gap 3 L BUN 19 H Creatinine 0.90 Estim Creat Clear Calc 45 Estimated GFR > 60 Glucose 151 H POC Capillary Glucose 149 H Calcium 12.7 H* Magnesium 1.5 L Total Bilirubin 0.8 AST 64 H ALT 57 H Alkaline Phosphatase 289 H Total Protein 6.9 Albumin 3.8 Vitamin D 25-Hydroxy 96.1 TSH 1.490 Quality VTE Prophylaxis VTE prophylaxis: mechanical ordered and pharmacologic ordered -Patient's previous records reviewed on admission -ER notes reviewed in detail on admission -discussed all findings and current treatment plan with patient/Family/POA -Consultations reviewed for recommendations -Patient's disposition for safe discharge discussed with case filler Dictation performed by [employer] direct speech recognition software, therefore tool polishing machine 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 Hospitalist MIPS Advance Care Plan I have confirmed that the patient's Advanced Care Plan is present, code status is documented, or surrogate decision maker is listed in patient medical record.: Yes Medication Reconciliation I have utilized all available resources to obtain, update and review the patients current medications (includes all prescriptions, OTC, herbals, cannabis, and nutritional supplements).: Yes The patient is not eligible for med reconciliation; the patient is in a emergent medical situation where delaying treatment would jeopardize the patients health.: No
[2025-04-29] MEDS: SODIUM CHLORIDE 0.9% IV 1,000 ML 125 ML IV CONT (15:23)
[2025-04-29] MEDS: MAGNESIUM SULF 2 GM/WATER 50ML 2 GM/50 ML BAG IVPB (15:30)
[2025-04-29] MEDS: RIVAROXABAN 20 MG TABLET BY MOUTH (17:46)
[2025-04-29] MEDS: cefTRIAXone 1 GM in SODIUM CHLORIDE 0.9% IV 50 ML 100 ML IVPB (17:47)
[2025-04-29] MEDS: SENNA/DOCUSATE SODIUM TABLET 1 TAB PO (22:45)
[2025-04-29] MEDS: MIRTAZAPINE 7.5 MG TABLET PO (22:45)
[2025-04-29] MEDS: PRAMIPEXOLE 0.5 MG TABLET PO (22:45)
[2025-04-29] MEDS: LEFLUNOMIDE 20 MG TABLET PO (22:45)
[2025-04-29] MEDS: DICLOFENAC SODIUM 1% 100 GM GEL (*BKC) 1 APPLIC TOPICAL (22:46)
[2025-04-30] VITALS (9 sets, daily range): BP systolic 132–141; BP diastolic 65–78; PULSE 60–93; RESP 16–20; TEMP 35.6–36.6; O2SAT 97–100
[2025-04-30] MEDS: SODIUM CHLORIDE 0.9% IV 1,000 ML 125 ML IV CONT ×3 (02:45→22:47)
[2025-04-30 05:46] LABS: Hematocrit 35.5 % (37.0-47.0); Hemoglobin 11.0 g/dL (12.0-15.0); Mean Corpuscular HGB Conc 31.0 g/dl (32-36); Mean Corpuscular Hemoglobin 28.7 pg (26-34); Mean Corpuscular Volume 92.7 fl (80-100); Platelet Count Result 202 k/mm3 (150-375); Red Blood Count 3.83 M/mm3 (4.2-5.4); White Blood Count 8.1 K/mm3 (4.5-10.0)
[2025-04-30 06:21] LABS: Alanine Aminotransferase 46 U/L (6-35); Albumin Level 3.0 g/dL (3.5-5.1); Alkaline Phosphatase 250 U/L (38-126); Anion Gap 2 mmol/L (4-12); Aspartate Amino Transferase 62 U/L (14-36); Bilirubin,Total 0.5 mg/dL (0.2-1.3); Blood Urea Nitrogen 21 mg/dL (7-17); Calcium 11.4 mg/dL (8.4-10.2); Carbon Dioxide 32 mmol/L (22-30); Chloride 99 mmol/L (98-107); Estimated CRCL calculation 45 ml/min; Estimated Glomerular Filt Rate > 60; Glucose 130 mg/dL (65-110); Magnesium 1.8 mg/dL (1.6-2.3); Potassium 3.0 mmol/L (3.4-5.0); Sodium 133 mmol/L (137-145); Total Protein 5.7 g/dL (6.3-8.2)
[2025-04-30] MEDS: PANTOPRAZOLE 40 MG TABLET PO (08:46)
[2025-04-30] MEDS: SOTALOL HCL 80 MG TABLET PO ×2 (08:46→20:08)
[2025-04-30] MEDS: FUROSEMIDE 40 MG TABLET BY MOUTH (08:47)
[2025-04-30] MEDS: PRAVASTATIN SODIUM 10 MG TABLET BY MOUTH (08:47)
[2025-04-30] MEDS: METOPROLOL TARTRATE 25 MG TABLET BY MOUTH ×2 (08:47→20:08)
--- NOTE | 2025-04-30 11:40 | PC.NURSE ---
Patient picked up by transporter by wheel chair for CT and MRI at 1140.
--- NOTE | 2025-04-30 13:48 | P.PNIM_ITS ---
Progress Note: A&P Assessment and Plan (1) TIA (transient ischemic attack): Code(s): G45.9 - Transient cerebral ischemic attack, unspecified Status: Acute Assessment and Plan: Patient with acute onset of confusion difficulty with fine motor skills per nursing staff upon my assessment patient's symptoms had resolved with previous history of TIA. CTA: 1. Age-related changes the brain with mild diffuse volume loss and moderate scattered white matter hypoattenuation consistent with chronic small vessel ischemic disease. No acute intracranial process or abnormally enhancing brain lesion. 2. 30% stenosis of the right carotid bulb relative to normal distal artery lumen diameter (NASCET criteria). 3. Small amount of atherosclerotic plaque with 0% stenosis of the left carotid bulb relative to normal distal artery lumen diameter. 4. 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 MRI: 1. Normal aging brain with mild diffuse volume loss and moderate scattered mesenteric periventricular predominant white matter T2 hyperintensity consistent with chronic small vessel ischemic disease. No acute intracranial process. * Neurology consulted * started ASA 81mg * continued patient's pravastatin * Previous echo reviewed showed no shunting * Lipid panel pending * PT/OT (2) Pneumonia: Code(s): J18.9 - Pneumonia, unspecified organism Status: Acute Assessment and Plan: Patient's CT showed pneumonia * Continue with IV Rocephin added doxycycline/patient on sotalol ovoid azithromycin due to QTC prolongation * Continued patient's chronic supplemental oxygen she she wears 4L at home * Armida q.6 p.r.n. (3) Hypercalcemia: Code(s): E83.52 - Hypercalcemia Status: Acute Assessment and Plan: Patient was critical calcium of 12.7 likely secondary to rheumatoid arthritis however patient did state that she takes a vitamin D and multivitamin home. * PTH pending * Vitamin-D normal * TSH within normal * Vitamin A pending * improving with IV fluids at 125 mL per hour 11.4 today (4) Fall: Code(s): W19.XXXA - Unspecified fall, initial encounter Status: Acute Assessment and Plan: patient with increasing generalized weakness at home had fall and was unable to get up on her own did report she was not wearing her chronic oxygen of 4 L at that time this could likely be secondary to hypoxia versus UTI * PT OT eval and treat * Pain management with norco and Voltaren cream BL knee/thigh pain HX OA with bilateral knee replacements (5) UTI (urinary tract infection): Code(s): N39.0 - Urinary tract infection, site not specified Status: Acute Assessment and Plan: * IV Rocephin Culture grew Gram-negative bacilli. Sensitivity pending (6) Fatty liver disease, nonalcoholic: Code(s): K76.0 - Fatty (change of) liver, not elsewhere classified Status: Acute Assessment and Plan: patient with elevated liver enzymes does have history of fatty liver disease * trending liver enzymes (7) Type 2 diabetes mellitus with diabetic nephropathy: Qualifiers: Diabetes mellitus cigarette tester insulin use: without cigarette tester use Qualified Code(s): E11.21 - Type 2 diabetes mellitus with diabetic nephropathy Code(s): E11.21 - Type 2 diabetes mellitus with diabetic nephropathy Status: Acute Assessment and Plan: * Accu-Cheks a.c. 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: Code(s): I25.719 - Atherosclerosis of autologous vein coronary artery bypass graft(s) with unspecified angina pectoris Status: Chronic Assessment and Plan: * Continue Xarelto, sotalol and statin and Lasix (9) Rheumatoid arthritis: Qualifiers: Rheumatoid arthritis location: unspecified site Rheumatoid factor presence: with rheumatoid factor Qualified Code(s): M05.9 - Rheumatoid arthritis with rheumatoid factor, unspecified Code(s): M06.9 - Rheumatoid arthritis, unspecified Status: Acute Assessment and Plan: * continued Leflunomide (10) Dyslipidemia: Code(s): E78.5 - Hyperlipidemia, unspecified Status: Acute Assessment and Plan: * Continue statin (11) Acute hypokalemia: Code(s): E87.6 - Hypokalemia Status: Resolved Assessment and Plan: 2.9 on arrival, 40 IV potassium given in ED, Recheck potassium 2.7, 40 meq IV and 40 p.o. ordered * Repeat labs in the morning * replenish as needed * Telemetry (12) Hypomagnesemia: Code(s): E83.42 - Hypomagnesemia Status: Resolved Assessment and Plan: Magnesium level 1.5. * Replace with 2 g IV * Trend labs Plan Code status: Full code per patient DVT prophylaxis: Xarelto Stress ulcer prophylaxis: Protonix 40 daily home medication PT/OT notes: PT/OT pending Disposition: Patient continues admission for further evaluation of unsteady gait, weakness, UTI, and Pneumonia. Patient with episode continued confusion difficulty with her primary skills ruling out acute stroke likely TIA neurology consulted for any further evaluation recommendations. PT/OT evaluation for discharge planning. Insurance authorization sent to [facility] for rehab. Time Spent With Patient Time with patient: 15 - 25 minutes Subjective Date/time seen: 04/30/25 13:48 Interval history: Patient is a 75-year-old female who was admitted for generalized worsening weakness. Patient has chronic acute respiratory failure with hypoxia on 4 L of oxygen at home found to have suspicion for urinary tract infection was admitted for further evaluation and treatment and PT/OT evaluation. 04/30/2025: Was called by nursing staff patient had was having some confusion and difficulty with her fine motor skills. at bedside also reported that she didn't seem herself and was having difficulty finding her words. Patient strength was equal bilateral and facial symmetry. A CTA and MRI was ordered. on F/U assessment patient symptoms had resolved she was up in chair eating lunch. at bedside also reported symptoms had resolved and she was back to her baseline. Patient at this time denied and acute issue other then feeling tired and reported not sleeping well. Denied CP, N/V, ABD pain, or dizziness. Patient did state she has had a previous TIA. Review of Systems Review of Systems: 12 systems were reviewed and are negativ e except for as per HPI. All systems reviewed & are unremarkable except as noted in HPI and below Exam Narrative: General: well appearing, frail female appears stated age. Respiratory: clear to auscultation bilaterally Cardiovascular: RRR Abdomen: Soft, round, Bowel sounds present Extremities: No cyanosis, clubbing, or edema present. Spine: kyphosis Neuro: Alert and orientated x 4. Skin: Warm, dry, and intact, without rash, erythema, or lesion. Psych: pleasant, cooperative Objective Data Vital Signs Vital Signs: Vital Signs - 24 hr 04/29/25 14:00 04/29/25 20:00 04/29/25 22:00 Temperature 98.2 F 97.7 F Pulse Rate 80 98 Respiratory Rate 16 18 Blood Pressure 132/62 122/65 Pulse Oximetry 98 98 98 Oxygen Delivery Nasal Cannula Oxygen Flow Rate 4 04/29/25 22:45 04/29/25 22:45 04/30/25 04:03 Temperature 97.6 F Pulse Rate 74 74 60 Respiratory Rate 16 Blood Pressure 132/78 Pulse Oximetry 97 Oxygen Delivery Oxygen Flow Rate 04/30/25 08:46 04/30/25 08:47 04/30/25 09:11 Temperature Pulse Rate 88 88 88 Respiratory Rate 20 Blood Pressure Pulse Oximetry 99 Oxygen Delivery Nasal Cannula Oxygen Flow Rate 4 Intake/Output Intake/Output: Intake & Output 04/27/25 04/28/25 04/29/25 04/30/25 23:59 23:59 23:59 23:59 Intake Total 480 3830 3340 1640 Balance 480 3830 3340 1640 Meds/Results Medications: Active Medications Generic Name Dose Route Start Last Admin Trade Name Freq PRN Reason Stop Dose Admin Acetaminophen 650 mg 04/27/25 17:04 04/28/25 10:59 Acetaminophen 325 Mg Tablet PO 650 mg Q4H PRN Administration Mild Pain (1-3) or Fever Hydrocodone Bitart/Acetaminophen 1 tab 04/28/25 14:50 Hydrocodone/Acetaminophen (*Crx) 5-325 Mg Tablet PO Q4H PRN Pain Rated 4-6 Albuterol 2.5 mg 04/28/25 13:31 Albuterol Sulfate Neb 2.5 Mg/3 Ml Inh INHALATION Q6HRT PRN Wheezing Albuterol/Ipratropium 3 ml 04/28/25 13:31 Ipratropium 0.5 Mg/Albuterol Sulfate 2.5 Mg Ampul.Neb 3 Ml INHALATION Q6HRT PRN Wheezing Aspirin 81 mg 05/01/25 08:00 Aspirin 81 Mg Chewable Tablet PO DAILY@0800 [facility] Dextrose 12.5 gm 04/27/25 17:05 Dextrose 50% 25 Gm/50 Ml Syringe IV PUSH PRN PRN Hypoglycemia Protocol Diclofenac Sodium 1 applic 04/28/25 17:00 04/30/25 13:30 Diclofenac Sodium 1% 100 Gm Gel (*Bkc) TOPICAL Not Given QID [facility] Doxycycline Hyclate 100 mg 04/30/25 13:50 Doxycycline Hyclate 100 Mg Tablet PO Q12HR IVONE Furosemide 40 mg 04/28/25 09:00 04/30/25 08:47 Furosemide 40 Mg Tablet BY MOUTH 40 mg DAILY IVONE Administration Glucagon 1 mg 04/27/25 17:05 Glucagon For Inj 1 Mg Vial IM PRN PRN Hypoglycemia Protocol Glucose 15 gm 04/27/25 17:05 Glucose Oral Gel 15 Gm Of Glucse In 37.5 Gm Tube PO PRN PRN Hypoglycemia Protocol Ceftriaxone Sodium 1 gm/ 50 mls @ 100 mls/hr 04/27/25 17:05 04/29/25 17:47 Sodium Chloride IVPB 100 mls/hr Q24H IVONE Administration Dextrose 1,000 mls @ 100 mls/hr 04/27/25 17:05 Dextrose 5% 1,000 Ml IVPB PRN PRN Hypoglycemia Protocol Sodium Chloride 1,000 mls @ 125 mls/hr 04/29/25 13:05 04/30/25 02:45 Normal Saline Iv IV CONT 125 mls/hr .Q8H IVONE Administration Insulin Aspart 2 - 5 units 04/28/25 08:00 04/30/25 11:45 Insulin Aspart (*Bkc) 100 Units/Ml SUB-Q Not Given TIDWM IVONE Protocol Insulin Aspart 1 - 2 units 04/27/25 21:00 04/29/25 23:38 Insulin Aspart (*Bkc) 100 Units/Ml SUB-Q Not Given HS IVONE Protocol Leflunomide 20 mg 04/27/25 22:55 04/29/25 22:45 Leflunomide 20 Mg Tablet PO 20 mg HS IVONE Administration Metoprolol Tartrate 25 mg 04/27/25 22:30 04/30/25 08:47 Metoprolol Tartrate 25 Mg Tablet BY MOUTH 25 mg Q12HR IVONE Administration Mirtazapine 7.5 mg 04/27/25 23:00 04/29/25 22:45 Mirtazapine 7.5 Mg Tablet PO 7.5 mg QHS IVONE Administration Pantoprazole Sodium 40 mg 04/28/25 09:00 04/30/25 08:46 Pantoprazole 40 Mg Tablet PO 40 mg QAM IVONE Administration Pramipexole Dihydrochloride 0.5 mg 04/27/25 23:00 04/29/25 22:45 Pramipexole 0.5 Mg Tablet PO 0.5 mg HS IVONE Administration Pravastatin Sodium 10 mg 04/28/25 09:00 04/30/25 08:47 Pravastatin Sodium 10 Mg Tablet BY MOUTH 10 mg DAILY IVONE Administration Rivaroxaban 20 mg 04/28/25 17:00 04/29/25 17:46 Rivaroxaban 20 Mg Tablet BY MOUTH 20 mg DAILY@1700 IVONE Administration Senna/Docusate Sodium 1 tab 04/28/25 21:00 04/29/25 22:45 Senna/Docusate Sodium Tablet PO 1 tab HS IVONE Administration Sotalol HCl 80 mg 04/27/25 23:00 04/30/25 08:46 Sotalol Hcl 80 Mg Tablet PO 80 mg Q12HR IVONE Administration Radiology Results: ITS Impressions Chest X-Ray 04/27/25 13:28 IMPRESSION: 1: Chronic apical infiltrates which may represent atypical pneumonia, fibrosis or scarring. Head/Neck CTA 04/30/25 11:58 IMPRESSION: 1. Age-related changes the brain with mild diffuse volume loss and moderate scattered white matter hypoattenuation consistent with chronic small vessel ischemic disease. No acute intracranial process or abnormally enhancing brain lesion. 2. 30% stenosis of the right carotid bulb relative to normal distal artery lumen diameter (NASCET criteria). 3. Small amount of atherosclerotic plaque with 0% stenosis of the left carotid bulb relative to normal distal artery lumen diameter. 4. 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 5. Unremarkable cerebral CT angiogram with no thrombosis, hematoma significant stenosis or aneurysm. 6. Multifocal pneumonia in the upper lungs. Brain MRI 04/30/25 13:15 IMPRESSION: 1. Normal aging brain with mild diffuse volume loss and moderate scattered mesenteric periventricular predominant white matter T2 hyperintensity consistent with chronic small vessel ischemic disease. No acute intracranial process. Labs Labs: Laboratory Results - last 24 hr 04/29/25 04/29/25 04/29/25 09:35 17:02 23:21 WBC RBC Hgb Hct MCV MCH MCHC RDW Plt Count MPV Sodium Potassium Chloride Carbon Dioxide Anion Gap BUN Creatinine Estim Creat Clear Calc Estimated GFR Glucose POC Capillary Glucose 165 H 145 H Calcium Magnesium Total Bilirubin AST ALT Alkaline Phosphatase Total Protein Albumin TSH 1.490 04/30/25 04/30/25 04/30/25 04:42 07:51 11:27 WBC 8.1 RBC 3.83 L Hgb 11.0 L Hct 35.5 L MCV 92.7 MCH 28.7 MCHC 31.0 L RDW 16.6 H Plt Count 202 MPV 12.1 H Sodium 133 L Potassium 3.0 L Chloride 99 Carbon Dioxide 32 H Anion Gap 2 L BUN 21 H Creatinine 0.89 Estim Creat Clear Calc 45 Estimated GFR > 60 Glucose 130 H POC Capillary Glucose 122 H 134 H Calcium 11.4 H Magnesium 1.8 Total Bilirubin 0.5 AST 62 H ALT 46 H Alkaline Phosphatase 250 H Total Protein 5.7 L Albumin 3.0 L TSH Quality VTE Prophylaxis VTE prophylaxis: mechanical ordered and pharmacologic ordered -Patient's previous records reviewed on admission -ER notes reviewed in detail on admission -discussed all findings and current treatment plan with patient/Family/POA -Consultations reviewed for recommendations -Patient's disposition for safe discharge discussed with caser up Dictation performed by [employer] direct speech recognition software, therefore commercial green retrofit architect variants and typographical errors may occur. Hospitalist MIPS Advance Care Plan I have confirmed that the patient's Advanced Care Plan is present, code status is documented, or surrogate decision maker is listed in patient medical record.: Yes Medication Reconciliation I have utilized all available resources to obtain, update and review the patients current medications (includes all prescriptions, OTC, herbals, cannabis, and nutritional supplements).: Yes The patient is not eligible for med reconciliation; the patient is in a emergent medical situation where delaying treatment would jeopardize the patients health.: No
[2025-04-30] MEDS: POTASSIUM CHLORIDE 20 MEQ ER TABLET 40 MEQ PO (13:50)
[2025-04-30] MEDS: DOXYCYCLINE HYCLATE 100 MG TABLET PO ×2 (15:36→20:08)
[2025-04-30] MEDS: RIVAROXABAN 20 MG TABLET BY MOUTH (17:49)
[2025-04-30] MEDS: cefTRIAXone 1 GM in SODIUM CHLORIDE 0.9% IV 50 ML 100 ML IVPB (17:49)
[2025-04-30] MEDS: LEFLUNOMIDE 20 MG TABLET PO (20:08)
[2025-04-30] MEDS: PRAMIPEXOLE 0.5 MG TABLET PO (20:08)
[2025-04-30] MEDS: SENNA/DOCUSATE SODIUM TABLET 1 TAB PO (20:09)
[2025-04-30] MEDS: MIRTAZAPINE 7.5 MG TABLET PO (20:09)
[2025-04-30] MEDS: DICLOFENAC SODIUM 1% 100 GM GEL (*BKC) 1 APPLIC TOPICAL (20:10)
[2025-05-01] VITALS (14 sets, daily range): BP systolic 121–148; BP diastolic 66–68; PULSE 75–107; RESP 18–20; TEMP 36.4–36.5; O2SAT 92–97
[2025-05-01 05:17] LABS: Hematocrit 33.3 % (37.0-47.0); Hemoglobin 10.2 g/dL (12.0-15.0); Mean Corpuscular HGB Conc 30.6 g/dl (32-36); Mean Corpuscular Hemoglobin 28.7 pg (26-34); Mean Corpuscular Volume 93.5 fl (80-100); Platelet Count Result 192 k/mm3 (150-375); Red Blood Count 3.56 M/mm3 (4.2-5.4); White Blood Count 7.8 K/mm3 (4.5-10.0)
[2025-05-01 05:36] LABS: Alanine Aminotransferase 50 U/L (6-35); Albumin Level 2.9 g/dL (3.5-5.1); Alkaline Phosphatase 251 U/L (38-126); Anion Gap 1 mmol/L (4-12); Aspartate Amino Transferase 61 U/L (14-36); Bilirubin,Total 0.6 mg/dL (0.2-1.3); Blood Urea Nitrogen 17 mg/dL (7-17); Calcium 10.4 mg/dL (8.4-10.2); Carbon Dioxide 29 mmol/L (22-30); Chloride 105 mmol/L (98-107); Cholesterol 97 mg/dL (0-200); Estimated CRCL calculation 50 ml/min; Estimated Glomerular Filt Rate > 60; Glucose 126 mg/dL (65-110); HDL Direct 32 mg/dL; Magnesium 1.5 mg/dL (1.6-2.3); Potassium 3.3 mmol/L (3.4-5.0); Sodium 135 mmol/L (137-145); Total Protein 5.6 g/dL (6.3-8.2); Triglycerides 181 mg/dL (<150)
[2025-05-01] MEDS: SODIUM CHLORIDE 0.9% IV 1,000 ML 125 ML IV CONT ×3 (06:44→23:58)
[2025-05-01] MEDS: PRAVASTATIN SODIUM 10 MG TABLET BY MOUTH (09:00)
[2025-05-01] MEDS: ASPIRIN 81 MG CHEWABLE TABLET PO (09:00)
[2025-05-01] MEDS: DOXYCYCLINE HYCLATE 100 MG TABLET PO ×2 (09:01→21:29)
[2025-05-01] MEDS: METOPROLOL TARTRATE 25 MG TABLET BY MOUTH ×2 (09:02→21:30)
[2025-05-01] MEDS: SOTALOL HCL 80 MG TABLET PO ×2 (09:02→21:30)
[2025-05-01] MEDS: FUROSEMIDE 40 MG TABLET BY MOUTH (09:03)
[2025-05-01] MEDS: guaiFENesin 12 HR 600 MG TABCR 1200 MG PO ×2 (09:03→21:30)
[2025-05-01] MEDS: PANTOPRAZOLE 40 MG TABLET PO (09:03)
[2025-05-01] MEDS: IPRATROPIUM 0.5 MG/ALBUTEROL SULFATE 2.5 MG AMPUL.NEB 3 ML INHALATION ×2 (09:18→19:57)
[2025-05-01] MEDS: BUDESONIDE RESPULE NEB 0.5 MG/2 ML AMP INHALATION ×2 (09:18→19:57)
--- NOTE | 2025-05-01 12:02 | P.PNIM_ITS ---
Progress Note: A&P Assessment and Plan (1) TIA (transient ischemic attack): Code(s): G45.9 - Transient cerebral ischemic attack, unspecified Status: Acute Assessment and Plan: Patient with acute onset of confusion difficulty with fine motor skills per nursing staff upon my assessment patient's symptoms had resolved with previous history of TIA. CTA: 1. Age-related changes the brain with mild diffuse volume loss and moderate scattered white matter hypoattenuation consistent with chronic small vessel ischemic disease. No acute intracranial process or abnormally enhancing brain lesion. 2. 30% stenosis of the right carotid bulb relative to normal distal artery lumen diameter (NASCET criteria). 3. Small amount of atherosclerotic plaque with 0% stenosis of the left carotid bulb relative to normal distal artery lumen diameter. 4. 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 MRI: 1. Normal aging brain with mild diffuse volume loss and moderate scattered mesenteric periventricular predominant white matter T2 hyperintensity consistent with chronic small vessel ischemic disease. No acute intracranial process. * Neurology consulted * started ASA 81mg * continued patient's pravastatin * Previous echo reviewed showed no shunting * Lipid panel pending * PT/OT (2) Pneumonia: Code(s): J18.9 - Pneumonia, unspecified organism Status: Acute Assessment and Plan: Patient's CT showed multifocal pneumonia * Continue with IV Rocephin added doxycycline/patient on sotalol ovoid azithromycin due to QTC prolongation * Continued patient's chronic supplemental oxygen she she wears 4L at home * DuoNebs q.6 * Mucinex * MRSA pending * Prednisone 40mg due to wheezing and chronic COPD (3) Hypercalcemia: Code(s): E83.52 - Hypercalcemia Status: Acute Assessment and Plan: Patient was critical calcium of 12.7 likely secondary to rheumatoid arthritis however patient did state that she takes a vitamin D and multivitamin home. * PTH pending * Vitamin-D normal * TSH within normal * Vitamin A pending * improving with IV fluids at 125 mL per hour (4) Fall: Code(s): W19.XXXA - Unspecified fall, initial encounter Status: Acute Assessment and Plan: patient with increasing generalized weakness at home had fall and was unable to get up on her own did report she was not wearing her chronic oxygen of 4 L at that time this could likely be secondary to hypoxia versus UTI * PT OT eval and treat * Pain management with norco and Voltaren cream BL knee/thigh pain HX OA with bilateral knee replacements (5) UTI (urinary tract infection): Code(s): N39.0 - Urinary tract infection, site not specified Status: Acute Assessment and Plan: * IV Rocephin Culture grew Gram-negative bacilli. Sensitivity pending (6) Fatty liver disease, nonalcoholic: Code(s): K76.0 - Fatty (change of) liver, not elsewhere classified Status: Acute Assessment and Plan: patient with elevated liver enzymes does have history of fatty liver disease * trending liver enzymes (7) Type 2 diabetes mellitus with diabetic nephropathy: Qualifiers: Diabetes mellitus assisted insulin use: without assisted use Qualified Code(s): E11.21 - Type 2 diabetes mellitus with diabetic nephropathy Code(s): E11.21 - Type 2 diabetes mellitus with diabetic nephropathy Status: Acute Assessment and Plan: * Temou-Alan melendrez 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: Code(s): I25.719 - Atherosclerosis of autologous vein coronary artery bypass graft(s) with unspecified angina pectoris Status: Chronic Assessment and Plan: * Continue Xarelto, sotalol and statin and Lasix (9) Rheumatoid arthritis: Qualifiers: Rheumatoid arthritis location: unspecified site Rheumatoid factor presence: with rheumatoid factor Qualified Code(s): M05.9 - Rheumatoid arthritis with rheumatoid factor, unspecified Code(s): M06.9 - Rheumatoid arthritis, unspecified Status: Acute Assessment and Plan: * continued Leflunomide (10) Dyslipidemia: Code(s): E78.5 - Hyperlipidemia, unspecified Status: Acute Assessment and Plan: * Continue statin (11) Acute hypokalemia: Code(s): E87.6 - Hypokalemia Status: Resolved Assessment and Plan: 2.9 on arrival, 40 IV potassium given in ED, Recheck potassium 2.7, 40 meq IV and 40 p.o. ordered * Repeat labs in the morning * replenish as needed * Telemetry (12) Hypomagnesemia: Code(s): E83.42 - Hypomagnesemia Status: Resolved Assessment and Plan: Magnesium level 1.5. * Replace with 2 g IV * Trend labs (13) Chronic respiratory failure with hypoxia, on home oxygen therapy: Code(s): J96.11 - Chronic respiratory failure with hypoxia; Z99.81 - Dependence on supplemental oxygen Status: Acute Assessment and Plan: Secondary to COPD on 4L supplemental oxygen at home * Duonebs * prednisone 40mg daily * See above under PNA Plan Code status: Full code per patient DVT prophylaxis: Xarelto Stress ulcer prophylaxis: Protonix 40 daily home medication PT/OT notes: PT/OT pending Disposition: Patient continues admission for further evaluation of unsteady gait, weakness, UTI, and Pneumonia. Patient with episode continued confusion difficulty with her primary skills ruling out acute stroke likely TIA neurology consulted for any further evaluation recommendations. PT/OT evaluation for discharge planning. Insurance authorization sent to [facility] for rehab. Time Spent With Patient Time with patient: 15 - 25 minutes Subjective Date/time seen: 05/01/25 12:02 Interval history: Patient is a 75-year-old female who was admitted for generalized worsening weakness. Patient has chronic acute respiratory failure with hypoxia on 4 L of oxygen at home found to have suspicion for urinary tract infection was admitted for further evaluation and treatment and PT/OT evaluation. 05/01/2025: Patient states she overall doesn't feel well and her weakness continues with minimal appetiate. CT showed multifocal pneumonia. Mild SOB from her baseline. Review of Systems Review of Systems: 12 systems were reviewed and are negativ e except for as per HPI. All systems reviewed & are unremarkable except as noted in HPI and below Exam Narrative: General: well appearing, frail female appears stated age. Respiratory: Diminished throughout with rhonchi bilateral upper lobes, 4L supplemental oxygen chronic Cardiovascular: RRR Abdomen: Soft, round, Bowel sounds present Extremities: No cyanosis, clubbing, or edema present. Spine: kyphosis Neuro: Alert and orientated x 4. Skin: Warm, dry, and intact, without rash, erythema, or lesion. Psych: pleasant, cooperative Objective Data Vital Signs Vital Signs: Vital Signs - 24 hr 04/30/25 14:19 04/30/25 20:00 04/30/25 20:08 Temperature 97.8 F Pulse Rate 83 93 Respiratory Rate 16 Blood Pressure 141/65 H Pulse Oximetry 100 98 Oxygen Delivery Nasal Cannula Oxygen Flow Rate 4 04/30/25 20:08 04/30/25 22:00 05/01/25 06:00 Temperature 96.1 F L 97.6 F Pulse Rate 93 93 97 Respiratory Rate 18 20 Blood Pressure 134/68 148/66 H Pulse Oximetry 100 97 Oxygen Delivery Oxygen Flow Rate 05/01/25 07:30 05/01/25 09:02 05/01/25 09:02 Temperature Pulse Rate 97 98 98 Respiratory Rate 20 Blood Pressure Pulse Oximetry 97 Oxygen Delivery Nasal Cannula Oxygen Flow Rate 4 05/01/25 09:20 05/01/25 09:20 05/01/25 09:37 Temperature Pulse Rate 100 100 102 H Respiratory Rate 20 20 20 Blood Pressure Pulse Oximetry 95 Oxygen Delivery Nasal Cannula Oxygen Flow Rate 3 Intake/Output Intake/Output: Intake & Output 04/28/25 04/29/25 04/30/25 05/01/25 23:59 23:59 23:59 23:59 Intake Total 3830 3390 4380 1233.8 Balance 3830 3390 4380 1233.8 Meds/Results Medications: Active Medications Generic Name Dose Route Start Last Admin Trade Name Freq PRN Reason Stop Dose Admin Acetaminophen 650 mg 04/27/25 17:04 04/28/25 10:59 Acetaminophen 325 Mg Tablet PO 650 mg Q4H PRN Administration Mild Pain (1-3) or Fever Hydrocodone Bitart/Acetaminophen 1 tab 04/28/25 14:50 Hydrocodone/Acetaminophen (*Crx) 5-325 Mg Tablet PO Q4H PRN Pain Rated 4-6 Albuterol 2.5 mg 04/28/25 13:31 Albuterol Sulfate Neb 2.5 Mg/3 Ml Inh INHALATION Q6HRT PRN Wheezing Albuterol/Ipratropium 3 ml 05/01/25 08:00 05/01/25 09:18 Ipratropium 0.5 Mg/Albuterol Sulfate 2.5 Mg Ampul.Neb 3 Ml INHALATION 3 ml Q6HRT IVONE Administration Aspirin 81 mg 05/01/25 08:00 05/01/25 09:00 Aspirin 81 Mg Chewable Tablet PO 81 mg DAILY@0800 IVONE Administration Budesonide 0.5 mg 05/01/25 08:00 05/01/25 09:18 Budesonide Respule Neb 0.5 Mg/2 Ml Amp INHALATION 0.5 mg Q12HRT IVONE Administration Dextrose 12.5 gm 04/27/25 17:05 Dextrose 50% 25 Gm/50 Ml Syringe IV PUSH PRN PRN Hypoglycemia Protocol Diclofenac Sodium 1 applic 04/28/25 17:00 05/01/25 11:37 Diclofenac Sodium 1% 100 Gm Gel (*Bkc) TOPICAL Not Given QID IVONE Doxycycline Hyclate 100 mg 04/30/25 13:50 05/01/25 09:01 Doxycycline Hyclate 100 Mg Tablet PO 05/04/25 21:01 100 mg Q12HR IVONE Administration Furosemide 40 mg 04/28/25 09:00 05/01/25 09:03 Furosemide 40 Mg Tablet BY MOUTH 40 mg DAILY IVONE Administration Glucagon 1 mg 04/27/25 17:05 Glucagon For Inj 1 Mg Vial IM PRN PRN Hypoglycemia Protocol Glucose 15 gm 04/27/25 17:05 Glucose Oral Gel 15 Gm Of Glucse In 37.5 Gm Tube PO PRN PRN Hypoglycemia Protocol Guaifenesin 1,200 mg 05/01/25 09:00 05/01/25 09:03 Guaifenesin 12 Hr 600 Mg Tabcr PO 1,200 mg Q12HR IVONE Administration Ceftriaxone Sodium 1 gm/ 50 mls @ 100 mls/hr 04/27/25 17:05 04/30/25 17:49 Sodium Chloride IVPB 100 mls/hr Q24H IVONE Administration Dextrose 1,000 mls @ 100 mls/hr 04/27/25 17:05 Dextrose 5% 1,000 Ml IVPB PRN PRN Hypoglycemia Protocol Sodium Chloride 1,000 mls @ 125 mls/hr 04/29/25 13:05 05/01/25 06:44 Normal Saline Iv IV CONT 125 mls/hr .Q8H IVONE Administration Insulin Aspart 2 - 5 units 04/28/25 08:00 05/01/25 08:34 Insulin Aspart (*Bkc) 100 Units/Ml SUB-Q Not Given TIDWM IVONE Protocol Insulin Aspart 1 - 2 units 04/27/25 21:00 04/30/25 20:10 Insulin Aspart (*Bkc) 100 Units/Ml SUB-Q Not Given HS IVONE Protocol Leflunomide 20 mg 04/27/25 22:55 04/30/25 20:08 Leflunomide 20 Mg Tablet PO 20 mg HS IVONE Administration Metoprolol Tartrate 25 mg 04/27/25 22:30 05/01/25 09:02 Metoprolol Tartrate 25 Mg Tablet BY MOUTH 25 mg Q12HR IVONE Administration Mirtazapine 7.5 mg 04/27/25 23:00 04/30/25 20:09 Mirtazapine 7.5 Mg Tablet PO 7.5 mg QHS IVONE Administration Pantoprazole Sodium 40 mg 04/28/25 09:00 05/01/25 09:03 Pantoprazole 40 Mg Tablet PO 40 mg QAM IVONE Administration Pramipexole Dihydrochloride 0.5 mg 04/27/25 23:00 04/30/25 20:08 Pramipexole 0.5 Mg Tablet PO 0.5 mg HS IVONE Administration Pravastatin Sodium 10 mg 04/28/25 09:00 05/01/25 09:00 Pravastatin Sodium 10 Mg Tablet BY MOUTH 10 mg DAILY IVONE Administration Prednisone 40 mg 05/01/25 08:00 05/01/25 09:01 Prednisone 20 Mg Tablet PO 40 mg DAILY@0800 IVONE Administration Rivaroxaban 20 mg 04/28/25 17:00 04/30/25 17:49 Rivaroxaban 20 Mg Tablet BY MOUTH 20 mg DAILY@1700 IVONE Administration Senna/Docusate Sodium 1 tab 04/28/25 21:00 04/30/25 20:09 Senna/Docusate Sodium Tablet PO 1 tab HS IVONE Administration Sotalol HCl 80 mg 04/27/25 23:00 05/01/25 09:02 Sotalol Hcl 80 Mg Tablet PO 80 mg Q12HR IVONE Administration Radiology Results: ITS Impressions Chest X-Ray 04/27/25 13:28 IMPRESSION: 1: Chronic apical infiltrates which may represent atypical pneumonia, fibrosis or scarring. Head/Neck CTA 04/30/25 11:58 IMPRESSION: 1. Age-related changes the brain with mild diffuse volume loss and moderate scattered white matter hypoattenuation consistent with chronic small vessel ischemic disease. No acute intracranial process or abnormally enhancing brain lesion. 2. 30% stenosis of the right carotid bulb relative to normal distal artery lumen diameter (NASCET criteria). 3. Small amount of atherosclerotic plaque with 0% stenosis of the left carotid bulb relative to normal distal artery lumen diameter. 4. 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 5. Unremarkable cerebral CT angiogram with no thrombosis, hematoma significant stenosis or aneurysm. 6. Multifocal pneumonia in the upper lungs. Brain MRI 04/30/25 13:15 IMPRESSION: 1. Normal aging brain with mild diffuse volume loss and moderate scattered mesenteric periventricular predominant white matter T2 hyperintensity consistent with chronic small vessel ischemic disease. No acute intracranial process. Labs Labs: Laboratory Results - last 24 hr 04/30/25 04/30/25 05/01/25 16:57 20:09 05:07 WBC 7.8 RBC 3.56 L Hgb 10.2 L Hct 33.3 L MCV 93.5 MCH 28.7 MCHC 30.6 L RDW 16.6 H Plt Count 192 MPV 12.0 H Sodium 135 L Potassium 3.3 L Chloride 105 Carbon Dioxide 29 Anion Gap 1 L BUN 17 Creatinine 0.79 Estim Creat Clear Calc 50 Estimated GFR > 60 Glucose 126 H POC Capillary Glucose 108 H 181 H Calcium 10.4 H Magnesium 1.5 L Total Bilirubin 0.6 AST 61 H ALT 50 H Alkaline Phosphatase 251 H Total Protein 5.6 L Albumin 2.9 L Triglycerides 181 H Cholesterol 97 LDL Cholesterol Direct < 30 HDL Direct 32 05/01/25 05/01/25 08:03 11:31 WBC RBC Hgb Hct MCV MCH MCHC RDW Plt Count MPV Sodium Potassium Chloride Carbon Dioxide Anion Gap BUN Creatinine Estim Creat Clear Calc Estimated GFR Glucose POC Capillary Glucose 125 H 140 H Calcium Magnesium Total Bilirubin AST ALT Alkaline Phosphatase Total Protein Albumin Triglycerides Cholesterol LDL Cholesterol Direct HDL Direct Quality VTE Prophylaxis VTE prophylaxis: mechanical ordered and pharmacologic ordered -Patient's previous records reviewed on admission -ER notes reviewed in detail on admission -discussed all findings and current treatment plan with patient/Family/POA -Consultations reviewed for recommendations -Patient's disposition for safe discharge discussed with window caser Dictation performed by [employer] direct speech recognition software, ther efore tooth cutter variants and typographical errors may occur. The Hospitalist MIPS Advance Care Plan I have confirmed that the patient's Advanced Care Plan is present, code status is documented, or surrogate decision maker is listed in patient medical record.: Yes Medication Reconciliation I have utilized all available resources to obtain, update and review the patients current medications (includes all prescriptions, OTC, herbals, cannabis, and nutritional supplements).: Yes The patient is not eligible for med reconciliation; the patient is in a emergent medical situation where delaying treatment would jeopardize the patients health.: No
[2025-05-01 12:24] LABS: Influenza A QL RT-PCR Negative (Negative); Influenza B QL RT-PCR Negative (Negative); RSV RNA, RT-PCR Negative (Negative); SARS-CoV-2 RNA PCR Negative (Negative)
[2025-05-01 12:58] LABS: MRSA (PCR) NOT DETECTED (NOT DETECTE)
--- NOTE | 2025-05-01 17:48 | WPDNEURCNPN ---
Assessment and Plan Assessment and plan (1) Fall: Code(s): W19.XXXA - Unspecified fall, initial encounter Status: Acute (2) Type 2 diabetes mellitus with diabetic nephropathy: Qualifiers: Diabetes mellitus longterm insulin use: without longterm use Qualified Code(s): E11.21 - Type 2 diabetes mellitus with diabetic nephropathy Code(s): E11.21 - Type 2 diabetes mellitus with diabetic nephropathy Status: Acute (3) Hypercalcemia: Code(s): E83.52 - Hypercalcemia Status: Acute (4) Nephropathy due to secondary diabetes mellitus: Code(s): E13.21 - Other specified diabetes mellitus with diabetic nephropathy Status: Acute (5) Bilateral leg weakness: Code(s): R29.898 - Other symptoms and signs involving the musculoskeletal system Status: Acute Plan In addition to the fall that brought her to the hospital she has increasing weakness in both lower limbs over last 1 year. She also has significant increase in urinary frequency. Serum calcium very high 12.7 and this is being followed up by hospitalist team. MRI of the brain shows some white matter changes not sufficient to account for all the problems he is having. Hence I would suggest an MRI of the cervical, thoracic and lumbosacral spine and check her postvoid residual urine volume. If the study does not show any significant myelopathy she will require EMG nerve can study of both lower limbs. Consult date: 05/01/25 HPI: Laura Clifford is a 75 year old female with the difficulty in ambulation gradually getting worse over the last 1 year. She has had a fall it was noted that she also has history of diabetes mellitus and atrial fibrillation. She is on Xarelto. CT scan of brain shows some narrowing of the vertebral artery on the right side. MRI of the brain shows white matter changes. Patient has not been found to be have pneumonia and is being treated for the same. Her serum calcium also very high at 12.7. This history of bilateral knee replacement several years ago. There is also mention of episodes of confusion. Yesterday her speech was very difficult to understand but today she is much better. Patient lives with the who does most of the things for her. She uses a walker to get around. It is difficult for to transfer from the bed to the walker. She is also using a diaper since she has difficulty getting to the bathroom and she has significantly increased frequency. Review of Systems Review of Systems: She feels weak in the legs but denies any significant specific symptoms. No significant pain in the lower back but she has some pain in the neck. 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 Chronic respiratory failure with hypoxia, on home oxygen therapy Transient ischemic attack Chronic hyponatremia Venous insufficiency Iron deficiency anemia Polymyalgia rheumatica Small vessel disease, cerebrovascular Chronic anticoagulation Paroxysmal atrial fibrillation Coronary artery disease Microscopic colitis Chronic diarrhea Exocrine pancreatic insufficiency COVID-19 Cervical arthritis Pneumonia Dyslipidemia Essential hypertension Gastro-esophageal reflux disease without esophagitis Multifocal atrial tachycardia Surgical History Surgical History History of heart artery stent History of cardiac catheterization History of bilateral knee replacement History of bilateral carpal tunnel release History of colonoscopy with polypectomy History of coronary artery bypass graft x 2 (12/2013) History of Achilles tendon repair History of spinal surgery Lumbar micro discectomy infusion. History of mitral valve repair History of shoulder surgery History of cataract extraction Left History of hand surgery trigger finger, thumb Family History Family History Mother Cerebrovascular accident Family history of diabetes mellitus in first degree relative Family history of coronary artery disease Acute myocardial infarction Diabetes mellitus Father Carcinoma of colon Family history of lung cancer Family history of malignant neoplasm of esophagus Sibling Liver disease Liver transplant recipient Other Family history of malignant neoplasm of brain Family history of malignant neoplasm of stomach Social History Social History Social History: Surrogate medical decision maker: Filippo Darrin, spouse. Code status: Full code. Smoking status: Never smoker Second hand tobacco smoke exposure: Yes Alcohol intake: current Drinks per week: 1 Alcohol use details: Rare alcohol use in moderation. Substance use: never Substance use type: does not use Do You Feel Safe in your Home?: Yes Lack of Transportation: No Lack of Food: Never True Current Housing: I Have Housing Concerned About Future Housing: No Difficulty Paying Gas/Electric Bills: No Difficulty Paying for Meds: No Currently Unemployed: No Education: High School Diploma/GED Difficulty w/ Childcare or Family Care: No Living arrangements: with family Additional living arrangements comments: Lives in [place] spouse. Occupation/Education: retired Additional occupation/education comments: Worked in [employer]. Spiritual care concerns: No Meds Home Medications and Allergies Home Medications ?Medication ?Instructions ?Recorded ?Confirmed ?Type leflunomide 20 mg tablet 20 mg PO HS 07/04/19 04/27/25 History omega 2-hsr-jwu-fish oil 100 2 cap PO .q12hr 06/12/23 04/27/25 History mg-160 mg-1,000 mg capsule (Fish Oil) arformoterol 15 mcg/2 mL solution See Rx Instructions .Route 06/16/24 04/27/25 Rx for nebulization .COMPLEX #30 ea evolocumab 140 mg/mL subcutaneous 140 mg subcut .every 2 weeks #2 mL 11/10/24 04/27/25 Rx pen injector (Angelika Freeman) metoprolol tartrate 25 mg tablet See Rx Instructions .Route 01/05/25 04/27/25 Rx .COMPLEX #180 tabs rivaroxaban 20 mg tablet (Xarelto) See Rx Instructions .Route 01/10/25 04/27/25 Rx .COMPLEX #30 tabs albuterol sulfate 90 mcg/actuation 2 inh inhalation Q6H PRN shortness 02/06/25 04/27/25 Rx aerosol inhaler of breath or wheezing #8.5 grams furosemide 40 mg tablet See Rx Instructions .Route 02/13/25 04/27/25 Rx .COMPLEX #90 tabs mirtazapine 7.5 mg tablet 7.5 mg PO QHS #30 tabs 03/01/25 04/27/25 Rx pravastatin 10 mg tablet See Rx Instructions .Route 03/07/25 04/27/25 Rx .COMPLEX #90 tabs tirzepatide 5 mg/0.5 mL 5 mg (0.5 mL) subcut WEEKLY #2 mL 03/12/25 04/27/25 Rx subcutaneous pen injector pramipexole 0.5 mg tablet 0.5 mg PO HS #90 tabs 03/19/25 04/27/25 Rx pantoprazole 40 mg tablet,delayed 40 mg PO QAM #90 tabs 04/02/25 04/27/25 Rx release potassium chloride 10 mEq oral 10 meq PO DAILY #30 ea 04/17/25 04/27/25 Rx packet (Pokonza) metformin 500 mg tablet,extended 1,000 mg PO QPM 04/27/25 04/27/25 History release 24 hr sotalol 80 mg tablet 80 mg PO Q12H 04/27/25 04/27/25 History Allergies Allergy/AdvReac Type Severity Reaction Status Date / Time ciprofloxacin Allergy Mild Unknown Verified 04/27/25 15:22 codeine Allergy Mild Vomiting Verified 04/27/25 15:22 levofloxacin Allergy Unknown Unknown Verified 04/27/25 15:22 lisinopril Allergy Unknown Unknown Verified 04/27/25 15:22 amoxicillin (From Augmentin) AdvReac Severe Confusion Verified 04/27/25 15:22 clavulanic acid (From AdvReac Severe Confusion Verified 04/27/25 15:22 Augmentin) tramadol AdvReac Mild Vomiting Verified 04/27/25 15:22 Vital Signs Vital Signs - 24 hr 04/30/25 20:00 04/30/25 20:08 04/30/25 20:08 Temperature Pulse Rate 93 93 Respiratory Rate Blood Pressure Pulse Oximetry 98 Oxygen Delivery Nasal Cannula Oxygen Flow Rate 4 04/30/25 22:00 05/01/25 06:00 05/01/25 07:30 Temperature 96.1 F L 97.6 F Pulse Rate 93 97 97 Respiratory Rate 18 20 20 Blood Pressure 134/68 148/66 H Pulse Oximetry 100 97 97 Oxygen Delivery Nasal Cannula Oxygen Flow Rate 4 05/01/25 09:00 05/01/25 09:02 05/01/25 09:02 Temperature Pulse Rate 98 98 Respiratory Rate Blood Pressure Pulse Oximetry 95 Oxygen Delivery Nasal Cannula Oxygen Flow Rate 3 05/01/25 09:20 05/01/25 09:20 05/01/25 09:37 Temperature Pulse Rate 100 100 102 H Respiratory Rate 20 20 20 Blood Pressure Pulse Oximetry 95 Oxygen Delivery Nasal Cannula Oxygen Flow Rate 3 05/01/25 14:11 05/01/25 14:11 05/01/25 14:19 Temperature Pulse Rate 97 97 98 Respiratory Rate 20 20 20 Blood Pressure Pulse Oximetry 92 Oxygen Delivery Nasal Cannula Oxygen Flow Rate 3 05/01/25 15:18 Temperature 97.6 F Pulse Rate 104 H Respiratory Rate 20 Blood Pressure 137/68 Pulse Oximetry 95 Oxygen Delivery Oxygen Flow Rate Exam Narrative: Fully conscious alert oriented to self time place and person. Patient appears very pale. No aphasia or dysarthria examination head and neck was unremarkable. No evidence of external trauma. Carotid arteries are palpable no bruit. Cranial nerves pupils were equal react to light. Visual ruvalcaba and extraocular motors intact there is no facial asymmetry. Facial sensation intact. Tongue was midline. Other cranial nerves within normal limits. Motor system normal power and tone in both upper and lower limbs however deep tendon reflexes generally decreased but no asymmetry. No spasticity noted. Sensory examination some distal sensory loss in both lower limbs. There is mild weakness of the right 1st dorsal interossei. No fasciculations are seen. Results Labs 05/01/25 05:07 05/01/25 05:07 Labs: Short CBC 05/01/25 Range/Units 05:07 WBC 7.8 (4.5-10.0) K/mm3 Hgb 10.2 L (12.0-15.0) g/dL Hct 33.3 L (37.0-47.0) % Plt Count 192 (150-375) k/mm3 BMP 05/01/25 05:07 Sodium 135 L Potassium 3.3 L Chloride 105 Carbon Dioxide 29 BUN 17 Creatinine 0.79 Glucose 126 H Calcium 10.4 H Liver Function 05/01/25 Range/Units 05:07 Total Bilirubin 0.6 (0.2-1.3) mg/dL AST 61 H (14-36) U/L ALT 50 H (6-35) U/L Alkaline Phosphatase 251 H (38-126) U/L Albumin 2.9 L (3.5-5.1) g/dL
[2025-05-01] MEDS: RIVAROXABAN 20 MG TABLET BY MOUTH (18:10)
[2025-05-01] MEDS: cefTRIAXone 1 GM in SODIUM CHLORIDE 0.9% IV 50 ML 100 ML IVPB (18:14)
[2025-05-01] MEDS: INSULIN ASPART (*BKC) 100 UNITS/ML SUB-Q ×2 (18:16→21:40)
[2025-05-01 20:16] LABS: Vitamin B12 737.0 pg/mL (239-931)
[2025-05-01] MEDS: LEFLUNOMIDE 20 MG TABLET PO (21:30)
[2025-05-01] MEDS: MIRTAZAPINE 7.5 MG TABLET PO (21:30)
[2025-05-01] MEDS: PRAMIPEXOLE 0.5 MG TABLET PO (21:30)
[2025-05-02] VITALS (19 sets, daily range): BP systolic 123–147; BP diastolic 58–88; PULSE 75–122; RESP 18–20; TEMP 36.5–36.9; O2SAT 93–99
[2025-05-02] MEDS: IPRATROPIUM 0.5 MG/ALBUTEROL SULFATE 2.5 MG AMPUL.NEB 3 ML INHALATION ×4 (01:32→19:26)
[2025-05-02 07:55] LABS: Hematocrit 33.4 % (37.0-47.0); Hemoglobin 10.4 g/dL (12.0-15.0); Mean Corpuscular HGB Conc 31.1 g/dl (32-36); Mean Corpuscular Hemoglobin 28.7 pg (26-34); Mean Corpuscular Volume 92.0 fl (80-100); Platelet Count Result 195 k/mm3 (150-375); Red Blood Count 3.63 M/mm3 (4.2-5.4); White Blood Count 8.0 K/mm3 (4.5-10.0)
[2025-05-02] MEDS: BUDESONIDE RESPULE NEB 0.5 MG/2 ML AMP INHALATION ×2 (08:07→19:26)
[2025-05-02 08:28] LABS: Alanine Aminotransferase 45 U/L (6-35); Albumin Level 3.0 g/dL (3.5-5.1); Alkaline Phosphatase 235 U/L (38-126); Anion Gap 3 mmol/L (4-12); Aspartate Amino Transferase 47 U/L (14-36); Bilirubin,Total 0.6 mg/dL (0.2-1.3); Blood Urea Nitrogen 14 mg/dL (7-17); Calcium 10.0 mg/dL (8.4-10.2); Carbon Dioxide 29 mmol/L (22-30); Chloride 103 mmol/L (98-107); Estimated CRCL calculation 55 ml/min; Estimated Glomerular Filt Rate > 60; Glucose 109 mg/dL (65-110); Magnesium 1.2 mg/dL (1.6-2.3); Potassium 3.0 mmol/L (3.4-5.0); Sodium 135 mmol/L (137-145); Total Protein 5.8 g/dL (6.3-8.2)
[2025-05-02] MEDS: METOPROLOL TARTRATE 25 MG TABLET BY MOUTH ×2 (11:10→20:29)
[2025-05-02] MEDS: FUROSEMIDE 40 MG TABLET BY MOUTH (11:11)
[2025-05-02] MEDS: PANTOPRAZOLE 40 MG TABLET PO (11:11)
[2025-05-02] MEDS: SOTALOL HCL 80 MG TABLET PO ×2 (11:11→20:29)
[2025-05-02] MEDS: PRAVASTATIN SODIUM 10 MG TABLET BY MOUTH (11:11)
[2025-05-02] MEDS: DOXYCYCLINE HYCLATE 100 MG TABLET PO ×2 (11:12→20:29)
[2025-05-02] MEDS: ASPIRIN 81 MG CHEWABLE TABLET PO (11:12)
[2025-05-02] MEDS: guaiFENesin 12 HR 600 MG TABCR 1200 MG PO ×2 (11:12→20:27)
[2025-05-02] MEDS: SODIUM CHLORIDE 0.9% IV 1,000 ML 125 ML IV CONT (11:13)
--- NOTE | 2025-05-02 12:03 | P.PNIM_ITS ---
Progress Note: A&P Assessment and Plan (1) TIA (transient ischemic attack): Code(s): G45.9 - Transient cerebral ischemic attack, unspecified Status: Acute Assessment and Plan: Patient with acute onset of confusion difficulty with fine motor skills per nursing staff upon my assessment patient's symptoms had resolved with previous history of TIA. CTA: 1. Age-related changes the brain with mild diffuse volume loss and moderate scattered white matter hypoattenuation consistent with chronic small vessel ischemic disease. No acute intracranial process or abnormally enhancing brain lesion. 2. 30% stenosis of the right carotid bulb relative to normal distal artery lumen diameter (NASCET criteria). 3. Small amount of atherosclerotic plaque with 0% stenosis of the left carotid bulb relative to normal distal artery lumen diameter. 4. 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 MRI: 1. Normal aging brain with mild diffuse volume loss and moderate scattered mesenteric periventricular predominant white matter T2 hyperintensity consistent with chronic small vessel ischemic disease. No acute intracranial process. * Neurology consulted * started ASA 81mg * continued patient's pravastatin * Previous echo reviewed showed no shunting * Lipid panel pending * PT/OT MRI spine pending report (2) Pneumonia: Code(s): J18.9 - Pneumonia, unspecified organism Status: Acute Assessment and Plan: Patient's CT showed multifocal pneumonia * Continue with IV Rocephin added doxycycline/patient on sotalol avoid azithromycin due to QTC prolongation * Continued patient's chronic supplemental oxygen she she wears 4L at home * DuoNebs q.6 * Mucinex * MRSA negative * Prednisone 40mg due to wheezing and chronic COPD. Finish 5 days course Switch antibiotics to cefdinir and doxycycline to complete the course (3) Hypercalcemia: Code(s): E83.52 - Hypercalcemia Status: Acute Assessment and Plan: Patient was critical calcium of 12.7 likely secondary to rheumatoid arthritis however patient did state that she takes a vitamin D and multivitamin home. * PTH pending * Vitamin-D normal * TSH within normal * Vitamin A pending * improving with IV fluids at 125 mL per hour. Will stop IV fluid (4) Fall: Code(s): W19.XXXA - Unspecified fall, initial encounter Status: Acute Assessment and Plan: patient with increasing generalized weakness at home had fall and was unable to get up on her own did report she was not wearing her chronic oxygen of 4 L at that time this could likely be secondary to hypoxia versus UTI * PT OT eval and treat * Pain management with norco and Voltaren cream BL knee/thigh pain HX OA with bilateral knee replacements (5) UTI (urinary tract infection): Code(s): N39.0 - Urinary tract infection, site not specified Status: Acute Assessment and Plan: * IV Rocephin Culture grew E coli pansensitive. Switched to cefdinir (6) Fatty liver disease, nonalcoholic: Code(s): K76.0 - Fatty (change of) liver, not elsewhere classified Status: Acute Assessment and Plan: patient with elevated liver enzymes does have history of fatty liver disease * trending liver enzymes (7) Type 2 diabetes mellitus with diabetic nephropathy: Qualifiers: Diabetes mellitus [facility] insulin use: without assistant terminal manager use Qualified Code(s): E11.21 - Type 2 diabetes mellitus with diabetic nephropathy Code(s): E11.21 - Type 2 diabetes mellitus with diabetic nephropathy Status: Acute Assessment and Plan: * Temou-Alan melendrez 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: Code(s): I25.719 - Atherosclerosis of autologous vein coronary artery bypass graft(s) with unspecified angina pectoris Status: Chronic Assessment and Plan: * Continue Xarelto, sotalol and statin and Lasix (9) Rheumatoid arthritis: Qualifiers: Rheumatoid arthritis location: unspecified site Rheumatoid factor presence: with rheumatoid factor Qualified Code(s): M05.9 - Rheumatoid arthritis with rheumatoid factor, unspecified Code(s): M06.9 - Rheumatoid arthritis, unspecified Status: Acute Assessment and Plan: * continued Leflunomide (10) Dyslipidemia: Code(s): E78.5 - Hyperlipidemia, unspecified Status: Acute Assessment and Plan: * Continue statin (11) Acute hypokalemia: Code(s): E87.6 - Hypokalemia Status: Resolved Assessment and Plan: 2.9 on arrival, 40 IV potassium given in ED, Recheck potassium 2.7, 40 meq IV and 40 p.o. ordered * Repeat and monitor * replenish as needed * Telemetry (12) Hypomagnesemia: Code(s): E83.42 - Hypomagnesemia Status: Resolved Assessment and Plan: Magnesium level 1.5. * Replace with 2 g IV * Trend labs (13) Chronic respiratory failure with hypoxia, on home oxygen therapy: Code(s): J96.11 - Chronic respiratory failure with hypoxia; Z99.81 - Dependence on supplemental oxygen Status: Acute Assessment and Plan: Secondary to COPD on 4L supplemental oxygen at home * Duonebs * prednisone 40mg daily * See above under PNA Plan Code status: Full code per patient DVT prophylaxis: Xarelto Stress ulcer prophylaxis: Protonix 40 daily home medication PT/OT notes: PT/OT recommends SNF Disposition: Patient continues admission for further evaluation of unsteady gait, weakness, UTI, and Pneumonia. Patient with episode continued confusion difficulty with her primary skills ruling out acute stroke likely TIA neurology consulted for any further evaluation recommendations. PT/OT evaluation for discharge planning. Insurance authorization [facility] to [facility] for [facility]hab. Subjective Date/time seen: 05/02/25 12:03 Interval history: no overnight events, feeling stronger, no sob, chest pain. no fever, chills. Review of Systems Review of Systems: All systems reviewed & are unremarkable except as noted in HPI and below Exam Narrative: General: well appearing, frail female appears stated age. Respiratory: Diminished throughout with added sounds, 4L supplemental oxygen chronic Cardiovascular: RRR Abdomen: Soft, round, Bowel sounds present Extremities: No cyanosis, clubbing, or edema present. Spine: kyphosis Neuro: Alert and orientated x 4. Skin: Warm, dry, and intact, without rash, erythema, or lesion. Psych: pleasant, cooperative Objective Data Vital Signs Vital Signs: Vital Signs - 24 hr 05/01/25 14:11 05/01/25 14:11 05/01/25 14:19 Temperature Pulse Rate 97 97 98 Respiratory Rate 20 20 20 Blood Pressure Pulse Oximetry 92 Oxygen Delivery Nasal Cannula Oxygen Flow Rate 3 Fraction of Inspired Oxygen 05/01/25 15:18 05/01/25 19:59 05/01/25 20:00 Temperature 97.6 F Pulse Rate 104 H 106 H 106 H Respiratory Rate 20 20 20 Blood Pressure 137/68 Pulse Oximetry 95 96 Oxygen Delivery Nasal Cannula Oxygen Flow Rate 3 Fraction of Inspired Oxygen 32 05/01/25 20:00 05/01/25 20:08 05/01/25 21:09 Temperature 97.7 F Pulse Rate 102 H 107 H Respiratory Rate 20 18 Blood Pressure 121/66 Pulse Oximetry 96 96 Oxygen Delivery Nasal Cannula Oxygen Flow Rate 3 Fraction of Inspired Oxygen 05/01/25 21:30 05/01/25 21:30 05/02/25 01:32 Temperature Pulse Rate 75 75 79 Respiratory Rate 20 Blood Pressure Pulse Oximetry Oxygen Delivery Oxygen Flow Rate Fraction of Inspired Oxygen 05/02/25 01:35 05/02/25 01:41 05/02/25 05:49 Temperature 97.7 F Pulse Rate 79 85 93 Respiratory Rate 20 20 20 Blood Pressure 134/88 Pulse Oximetry 94 99 Oxygen Delivery Nasal Cannula Oxygen Flow Rate 3 Fraction of Inspired Oxygen 32 05/02/25 08:09 05/02/25 08:10 05/02/25 08:18 Temperature Pulse Rate 86 100 Respiratory Rate 20 20 Blood Pressure Pulse Oximetry 97 Oxygen Delivery Nasal Cannula Oxygen Flow Rate 3 Fraction of Inspired Oxygen 32 05/02/25 11:10 05/02/25 11:11 Temperature Pulse Rate 85 85 Respiratory Rate Blood Pressure Pulse Oximetry Oxygen Delivery Oxygen Flow Rate Fraction of Inspired Oxygen Intake/Output Intake/Output: Intake & Output 04/29/25 04/30/25 05/01/25 05/02/25 23:59 23:59 23:59 23:59 Intake Total 3390 4430 3943.8 1240 Balance 3390 4430 3943.8 1240 Meds/Results Medications: Active Medications Generic Name Dose Route Start Last Admin Trade Name Freq PRN Reason Stop Dose Admin Acetaminophen 650 mg 04/27/25 17:04 04/28/25 10:59 Acetaminophen 325 Mg Tablet PO 650 mg Q4H PRN Administration Mild Pain (1-3) or Fever Hydrocodone Bitart/Acetaminophen 1 tab 04/28/25 14:50 Hydrocodone/Acetaminophen (*Crx) 5-325 Mg Tablet PO Q4H PRN Pain Rated 4-6 Albuterol 2.5 mg 04/28/25 13:31 Albuterol Sulfate Neb 2.5 Mg/3 Ml Inh INHALATION Q6HRT PRN Wheezing Albuterol/Ipratropium 3 ml 05/01/25 08:00 05/02/25 08:07 Ipratropium 0.5 Mg/Albuterol Sulfate 2.5 Mg Ampul.Neb 3 Ml INHALATION 3 ml Q6HRT IVONE Administration Aspirin 81 mg 05/01/25 08:00 05/02/25 11:12 Aspirin 81 Mg Chewable Tablet PO 81 mg DAILY@0800 IVONE Administration Budesonide 0.5 mg 05/01/25 08:00 05/02/25 08:07 Budesonide Respule Neb 0.5 Mg/2 Ml Amp INHALATION 0.5 mg Q12HRT IVONE Administration Dextrose 12.5 gm 04/27/25 17:05 Dextrose 50% 25 Gm/50 Ml Syringe IV PUSH PRN PRN Hypoglycemia Protocol Diclofenac Sodium 1 applic 04/28/25 17:00 05/02/25 11:13 Diclofenac Sodium 1% 100 Gm Gel (*Bkc) TOPICAL Not Given QID IVONE Doxycycline Hyclate 100 mg 04/30/25 13:50 05/02/25 11:12 Doxycycline Hyclate 100 Mg Tablet PO 05/04/25 21:01 100 mg Q12HR IVONE Administration Furosemide 40 mg 04/28/25 09:00 05/02/25 11:11 Furosemide 40 Mg Tablet BY MOUTH 40 mg DAILY IVONE Administration Glucagon 1 mg 04/27/25 17:05 Glucagon For Inj 1 Mg Vial IM PRN PRN Hypoglycemia Protocol Glucose 15 gm 04/27/25 17:05 Glucose Oral Gel 15 Gm Of Glucse In 37.5 Gm Tube PO PRN PRN Hypoglycemia Protocol Guaifenesin 1,200 mg 05/01/25 09:00 05/02/25 11:12 Guaifenesin 12 Hr 600 Mg Tabcr PO 1,200 mg Q12HR IVONE Administration Ceftriaxone Sodium 1 gm/ 50 mls @ 100 mls/hr 04/27/25 17:05 05/01/25 18:14 Sodium Chloride IVPB 100 mls/hr Q24H IVONE Administration Dextrose 1,000 mls @ 100 mls/hr 04/27/25 17:05 Dextrose 5% 1,000 Ml IVPB PRN PRN Hypoglycemia Protocol Magnesium Sulfate 2 gm in 50 mls @ 50 mls/hr 05/02/25 12:00 Magnesium Sulf 2 Gm/Water 50ml IVPB 05/02/25 12:59 ONCE ONE Insulin Aspart 2 - 5 units 04/28/25 08:00 05/02/25 11:12 Insulin Aspart (*Bkc) 100 Units/Ml SUB-Q Not Given TIDWM [facility] Protocol Insulin Aspart 1 - 2 units 04/27/25 21:00 05/01/25 21:40 Insulin Aspart (*Bkc) 100 Units/Ml SUB-Q 1 units HS IVONE Administration Protocol Leflunomide 20 mg 04/27/25 22:55 05/01/25 21:30 Leflunomide 20 Mg Tablet PO 20 mg HS IVONE Administration Metoprolol Tartrate 25 mg 04/27/25 22:30 05/02/25 11:10 Metoprolol Tartrate 25 Mg Tablet BY MOUTH 25 mg Q12HR IVONE Administration Mirtazapine 7.5 mg 04/27/25 23:00 05/01/25 21:30 Mirtazapine 7.5 Mg Tablet PO 7.5 mg QHS IVONE Administration Pantoprazole Sodium 40 mg 04/28/25 09:00 05/02/25 11:11 Pantoprazole 40 Mg Tablet PO 40 mg QAM IVONE Administration Pramipexole Dihydrochloride 0.5 mg 04/27/25 23:00 05/01/25 21:30 Pramipexole 0.5 Mg Tablet PO 0.5 mg HS IVONE Administration Pravastatin Sodium 10 mg 04/28/25 09:00 05/02/25 11:11 Pravastatin Sodium 10 Mg Tablet BY MOUTH 10 mg DAILY IVONE Administration Prednisone 40 mg 05/01/25 08:00 05/02/25 11:11 Prednisone 20 Mg Tablet PO 40 mg DAILY@0800 [facility] Administration Rivaroxaban 20 mg 04/28/25 17:00 05/01/25 18:10 Rivaroxaban 20 Mg Tablet BY MOUTH 20 mg DAILY@1700 [facility] Administration Senna/Docusate Sodium 1 tab 04/28/25 21:00 05/01/25 21:29 Senna/Docusate Sodium Tablet PO Not Given HS IVONE Sotalol HCl 80 mg 04/27/25 23:00 05/02/25 11:11 Sotalol Hcl 80 Mg Tablet PO 80 mg Q12HR IVONE Administration Radiology Results: ITS Impressions Chest X-Ray 04/27/25 13:28 IMPRESSION: 1: Chronic apical infiltrates which may represent atypical pneumonia, fibrosis or scarring. Head/Neck CTA 04/30/25 11:58 IMPRESSION: 1. Age-related changes the brain with mild diffuse volume loss and moderate scattered white matter hypoattenuation consistent with chronic small vessel ischemic disease. No acute intracranial process or abnormally enhancing brain lesion. 2. 30% stenosis of the right carotid bulb relative to normal distal artery lumen diameter (NASCET criteria). 3. Small amount of atherosclerotic plaque with 0% stenosis of the left carotid bulb relative to normal distal artery lumen diameter. 4. 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 5. Unremarkable cerebral CT angiogram with no thrombosis, hematoma significant stenosis or aneurysm. 6. Multifocal pneumonia in the upper lungs. Brain MRI 04/30/25 13:15 IMPRESSION: 1. Normal aging brain with mild diffuse volume loss and moderate scattered mesenteric periventricular predominant white matter T2 hyperintensity consistent with chronic small vessel ischemic disease. No acute intracranial process. Labs Labs: Laboratory Results - last 24 hr 05/01/25 05/01/25 05/01/25 05:07 11:39 16:38 WBC RBC Hgb Hct MCV MCH MCHC RDW Plt Count MPV Sodium Potassium Chloride Carbon Dioxide Anion Gap BUN Creatinine Estim Creat Clear Calc Estimated GFR Glucose POC Capillary Glucose 236 H Calcium Magnesium Total Bilirubin AST ALT Alkaline Phosphatase Total Protein Albumin Vitamin B12 737.0 Folate 13.1 Nasal MRSA (PCR) Not detected Influenza A (RT-PCR) Negative Influenza B (RT-PCR) Negative RSV (RT-PCR) Negative SARS-CoV-2 RNA (RT-PCR) Negative 05/01/25 05/02/25 05/02/25 21:22 07:37 08:04 WBC 8.0 RBC 3.63 L Hgb 10.4 L Hct 33.4 L MCV 92.0 MCH 28.7 MCHC 31.1 L RDW 16.7 H Plt Count 195 MPV 11.8 H Sodium 135 L Potassium 3.0 L Chloride 103 Carbon Dioxide 29 Anion Gap 3 L BUN 14 Creatinine 0.72 Estim Creat Clear Calc 55 Estimated GFR > 60 Glucose 109 POC Capillary Glucose 230 H 101 Calcium 10.0 Magnesium 1.2 L Total Bilirubin 0.6 AST 47 H ALT 45 H Alkaline Phosphatase 235 H Total Protein 5.8 L Albumin 3.0 L Vitamin B12 Folate Nasal MRSA (PCR) Influenza A (RT-PCR) Influenza B (RT-PCR) RSV (RT-PCR) SARS-CoV-2 RNA (RT-PCR) 05/02/25 11:57 WBC RBC Hgb Hct MCV MCH MCHC RDW Plt Count MPV Sodium Potassium Chloride Carbon Dioxide Anion Gap BUN Creatinine Estim Creat Clear Calc Estimated GFR Glucose POC Capillary Glucose 188 H Calcium Magnesium Total Bilirubin AST ALT Alkaline Phosphatase Total Protein Albumin Vitamin B12 Folate Nasal MRSA (PCR) Influenza A (RT-PCR) Influenza B (RT-PCR) RSV (RT-PCR) SARS-CoV-2 RNA (RT-PCR)
[2025-05-02] MEDS: POTASSIUM CHLORIDE 20 MEQ ER TABLET 40 MEQ PO (12:53)
[2025-05-02] MEDS: CEFDINIR 300 MG CAPSULE PO ×2 (12:53→20:29)
[2025-05-02] MEDS: MAGNESIUM SULF 2 GM/WATER 50ML 2 GM/50 ML BAG IVPB (12:55)
[2025-05-02] MEDS: RIVAROXABAN 20 MG TABLET BY MOUTH (17:33)
[2025-05-02] MEDS: INSULIN ASPART (*BKC) 100 UNITS/ML SUB-Q ×2 (17:34→20:30)
[2025-05-02] MEDS: MIRTAZAPINE 7.5 MG TABLET PO (20:28)
[2025-05-02] MEDS: PRAMIPEXOLE 0.5 MG TABLET PO (20:29)
[2025-05-02] MEDS: LEFLUNOMIDE 20 MG TABLET PO (20:29)
[2025-05-03] VITALS (15 sets, daily range): BP systolic 132–142; BP diastolic 70–83; PULSE 84–101; RESP 16–20; TEMP 36.2–36.6; O2SAT 91–96
--- NOTE | 2025-05-03 02:07 | PCRCNOTE ---
Patient refused 0200, states she just got to sleep. She will call for a tx, if needed.
[2025-05-03 05:58] LABS: Hematocrit 34.6 % (37.0-47.0); Hemoglobin 10.7 g/dL (12.0-15.0); Mean Corpuscular HGB Conc 30.9 g/dl (32-36); Mean Corpuscular Hemoglobin 28.6 pg (26-34); Mean Corpuscular Volume 92.5 fl (80-100); Platelet Count Result 219 k/mm3 (150-375); Red Blood Count 3.74 M/mm3 (4.2-5.4); White Blood Count 8.3 K/mm3 (4.5-10.0)
[2025-05-03 06:15] LABS: Alanine Aminotransferase 52 U/L (6-35); Albumin Level 3.1 g/dL (3.5-5.1); Alkaline Phosphatase 243 U/L (38-126); Anion Gap 3 mmol/L (4-12); Aspartate Amino Transferase 51 U/L (14-36); Bilirubin,Total 0.5 mg/dL (0.2-1.3); Blood Urea Nitrogen 19 mg/dL (7-17); Calcium 10.0 mg/dL (8.4-10.2); Carbon Dioxide 29 mmol/L (22-30); Chloride 103 mmol/L (98-107); Estimated CRCL calculation 53 ml/min; Estimated Glomerular Filt Rate > 60; Glucose 158 mg/dL (65-110); Magnesium 1.7 mg/dL (1.6-2.3); Potassium 3.1 mmol/L (3.4-5.0); Sodium 135 mmol/L (137-145); Total Protein 5.8 g/dL (6.3-8.2)
[2025-05-03] MEDS: IPRATROPIUM 0.5 MG/ALBUTEROL SULFATE 2.5 MG AMPUL.NEB 3 ML INHALATION ×3 (07:41→19:16)
[2025-05-03] MEDS: BUDESONIDE RESPULE NEB 0.5 MG/2 ML AMP INHALATION ×2 (07:42→19:16)
[2025-05-03] MEDS: PRAVASTATIN SODIUM 10 MG TABLET BY MOUTH (09:13)
[2025-05-03] MEDS: DOXYCYCLINE HYCLATE 100 MG TABLET PO ×2 (09:14→21:46)
[2025-05-03] MEDS: PANTOPRAZOLE 40 MG TABLET PO (09:14)
[2025-05-03] MEDS: FUROSEMIDE 40 MG TABLET BY MOUTH (09:14)
[2025-05-03] MEDS: CEFDINIR 300 MG CAPSULE PO ×2 (09:14→21:48)
[2025-05-03] MEDS: SOTALOL HCL 80 MG TABLET PO ×2 (09:14→21:46)
[2025-05-03] MEDS: guaiFENesin 12 HR 600 MG TABCR 1200 MG PO ×2 (09:14→21:46)
[2025-05-03] MEDS: METOPROLOL TARTRATE 25 MG TABLET BY MOUTH ×2 (09:15→21:48)
[2025-05-03] MEDS: POTASSIUM CHLORIDE 20 MEQ PACKET (FOR LIQUID) 40 MEQ PO (10:16)
--- NOTE | 2025-05-03 14:57 | P.PNIM_ITS ---
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: Code(s): I25.719 - Atherosclerosis of autologous vein coronary artery bypass graft(s) with unspecified angina pectoris Status: Chronic (4) Paroxysmal atrial fibrillation: Code(s): I48.0 - Paroxysmal atrial fibrillation Status: Chronic (5) Type 2 diabetes mellitus with diabetic nephropathy: Qualifiers: Diabetes mellitus longterm insulin use: 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 Age-related changes the brain with mild diffuse volume loss and moderate scattered white matter hypoattenuation consistent with chronic small vessel ischemic disease. No acute intracranial process or abnormally enhancing brain l esion. 2. 30% stenosis of the right carotid bulb relative to normal distal artery lumen diameter (NASCET criteria). 3. Small amount of atherosclerotic plaque with 0% stenosis of the left carotid bulb relative to normal distal artery lumen diameter. 4. 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 MRI: 1. Normal aging brain with mild diffuse volume loss and moderate scattered mesenteric periventricular predominant white matter T2 hyperintensity consistent with chronic small vessel ischemic disease. No acute intracranial process. Neurology consulted Continue with ASA 81mg continued patient's pravastatin Previous echo reviewed showed no shunting Lipid panel pending PT/OT MRI spine shows L2-L3 central canal stenosis, will get neurosurgery consult (2) Pneumonia: Patient's CT showed multifocal pneumonia Status post azithromycin, doxycycline Has been switched to cefdinir and doxycycline to complete a course Continued patient's chronic supplemental oxygen she she wears 4L at home DuoNebs q.6 Mucinex MRSA negative Prednisone 40mg due to wheezing and chronic COPD. Finish 5 days course (3) Hypercalcemia: Patient was critical calcium of 12.7 likely secondary to rheumatoid arthritis however patient did state that she takes a vitamin D and multivitamin home. PTH pending Vitamin-D normal TSH within normal Vitamin A pending (4) Fall: patient with increasing generalized weakness at home had fall and was unable to get up on her own did report she was not wearing her chronic oxygen of 4 L at that time this could likely be secondary to hypoxia versus UTI PT OT eval and treat Pain management with norco and Voltaren cream BL knee/thigh pain HX OA with bilateral knee replacements (5) UTI (urinary tract infection): Urine culture growing pansensitive E coli Continue with cefdinir (6) Type 2 diabetes mellitus with diabetic nephropathy: Accu-Cheks a.c. HS Diabetic diet SSI Hold home metformin/GLP-1 hypoglycemic protocol (8) 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: Continue Xarelto, sotalol and statin and Lasix (9) Rheumatoid arthritis: continued Leflunomide (10) Acute hypokalemia: Supplement potassium (11) Chronic respiratory failure with hypoxia, on home oxygen therapy: Secondary to COPD on 4L supplemental oxygen at home Duonebs prednisone 40mg daily 12.Code status: Full code per patient 13. DVT prophylaxis: Xarelto 14. Disposition: Will benefit from SNF placement, await neurosurgery consultation Time Spent With Patient Time: 39 minutes Subjective Date/time seen: 05/03/25 14:57 Interval history: No acute events overnight each Review of Systems Review of Systems: All systems reviewed & are unremarkable except as noted in HPI and below Exam Narrative: General: well appearing, frail female appears stated age. Respiratory: Diminished throughout with added sounds, 4L supplemental oxygen chronic Cardiovascular: RRR Abdomen: Soft, round, Bowel sounds present Extremities: No cyanosis, clubbing, or edema present. Spine: kyphosis Neuro: Alert and orientated x 4. Skin: Warm, dry, and intact, without rash, erythema, or lesion. Psych: pleasant, cooperative Objective Data Vital Signs Vital Signs: Vital Signs - 24 hr 05/02/25 19:26 05/02/25 19:52 05/02/25 20:00 Temperature 98.4 F Pulse Rate 122 H 104 H Respiratory Rate 19 20 Blood Pressure 147/70 H Pulse Oximetry 93 96 Oxygen Delivery Nasal Cannula Oxygen Flow Rate 3 Fraction of Inspired Oxygen 05/02/25 20:29 05/02/25 20:29 05/02/25 20:39 Temperature Pulse Rate 104 H 104 H 118 H Respiratory Rate 19 Blood Pressure Pulse Oximetry Oxygen Delivery Oxygen Flow Rate Fraction of Inspired Oxygen 05/02/25 20:40 05/03/25 04:52 05/03/25 07:43 Temperature 97.7 F Pulse Rate 90 84 Respiratory Rate 20 16 Blood Pressure 142/80 H Pulse Oximetry 96 94 Oxygen Delivery Nasal Cannula Oxygen Flow Rate 3 Fraction of Inspired Oxygen 32 05/03/25 09:12 05/03/25 09:14 05/03/25 09:15 Temperature Pulse Rate 84 84 Respiratory Rate Blood Pressure Pulse Oximetry 94 Oxygen Delivery Nasal Cannula Oxygen Flow Rate 3 Fraction of Inspired Oxygen 05/03/25 13:37 05/03/25 13:45 Temperature Pulse Rate 89 92 Respiratory Rate 16 16 Blood Pressure Pulse Oximetry Oxygen Delivery Oxygen Flow Rate Fraction of Inspired Oxygen Intake/Output Intake/Output: Intake & Output 04/30/25 05/01/25 05/02/25 05/03/25 23:59 23:59 23:59 23:59 Intake Total 4430 3943.8 2080 1360 Balance 4430 3943.8 2080 1360 Meds/Results Medications: Active Medications Generic Name Dose Route Start Last Admin Trade Name Freq PRN Reason Stop Dose Admin Acetaminophen 650 mg 04/27/25 17:04 04/28/25 10:59 Acetaminophen 325 Mg Tablet PO 650 mg Q4H PRN Administration Mild Pain (1-3) or Fever Hydrocodone Bitart/Acetaminophen 1 tab 04/28/25 14:50 Hydrocodone/Acetaminophen (*Crx) 5-325 Mg Tablet PO Q4H PRN Pain Rated 4-6 Albuterol 2.5 mg 04/28/25 13:31 Albuterol Sulfate Neb 2.5 Mg/3 Ml Inh INHALATION Q6HRT PRN Wheezing Albuterol/Ipratropium 3 ml 05/01/25 08:00 05/03/25 13:36 Ipratropium 0.5 Mg/Albuterol Sulfate 2.5 Mg Ampul.Neb 3 Ml INHALATION 3 ml Q6HRT IVONE Administration Aspirin 81 mg 05/01/25 08:00 05/02/25 11:12 Aspirin 81 Mg Chewable Tablet PO 81 mg DAILY@0800 IVONE Administration Budesonide 0.5 mg 05/01/25 08:00 05/03/25 07:42 Budesonide Respule Neb 0.5 Mg/2 Ml Amp INHALATION 0.5 mg Q12HRT IVONE Administration Cefdinir 300 mg 05/02/25 12:30 05/03/25 09:14 Cefdinir 300 Mg Capsule PO 05/03/25 21:01 300 mg Q12HR IVONE Administration Dextrose 12.5 gm 04/27/25 17:05 Dextrose 50% 25 Gm/50 Ml Syringe IV PUSH PRN PRN Hypoglycemia Protocol Diclofenac Sodium 1 applic 05/03/25 14:13 Diclofenac Sodium 1% 100 Gm Gel (*Bkc) TOPICAL QID PRN knee pain Doxycycline Hyclate 100 mg 04/30/25 13:50 05/03/25 09:14 Doxycycline Hyclate 100 Mg Tablet PO 05/04/25 21:01 100 mg Q12HR IVONE Administration Furosemide 40 mg 04/28/25 09:00 05/03/25 09:14 Furosemide 40 Mg Tablet BY MOUTH 40 mg DAILY IVONE Administration Glucagon 1 mg 04/27/25 17:05 Glucagon For Inj 1 Mg Vial IM PRN PRN Hypoglycemia Protocol Glucose 15 gm 04/27/25 17:05 Glucose Oral Gel 15 Gm Of Glucse In 37.5 Gm Tube PO PRN PRN Hypoglycemia Protocol Guaifenesin 1,200 mg 05/01/25 09:00 05/03/25 09:14 Guaifenesin 12 Hr 600 Mg Tabcr PO 1,200 mg Q12HR IVONE Administration Dextrose 1,000 mls @ 100 mls/hr 04/27/25 17:05 Dextrose 5% 1,000 Ml IVPB PRN PRN Hypoglycemia Protocol Insulin Aspart 2 - 5 units 04/28/25 08:00 05/03/25 14:06 Insulin Aspart (*Bkc) 100 Units/Ml SUB-Q Not Given TIDWM IVONE Protocol Insulin Aspart 1 - 2 units 04/27/25 21:00 05/02/25 20:30 Insulin Aspart (*Bkc) 100 Units/Ml SUB-Q 2 units HS IVONE Administration Protocol Leflunomide 20 mg 04/27/25 22:55 05/02/25 20:29 Leflunomide 20 Mg Tablet PO 20 mg HS IVONE Administration Melatonin 3 mg 05/03/25 11:07 Melatonin 3 Mg Tablet PO HS PRN Insomnia Metoprolol Tartrate 25 mg 04/27/25 22:30 05/03/25 09:15 Metoprolol Tartrate 25 Mg Tablet BY MOUTH 25 mg Q12HR IVONE Administration Mirtazapine 7.5 mg 04/27/25 23:00 05/02/25 20:28 Mirtazapine 7.5 Mg Tablet PO 7.5 mg QHS IVONE Administration Pantoprazole Sodium 40 mg 04/28/25 09:00 05/03/25 09:14 Pantoprazole 40 Mg Tablet PO 40 mg QAM IVONE Administration Pramipexole Dihydrochloride 0.5 mg 04/27/25 23:00 05/02/25 20:29 Pramipexole 0.5 Mg Tablet PO 0.5 mg HS IVONE Administration Pravastatin Sodium 10 mg 04/28/25 09:00 05/03/25 09:13 Pravastatin Sodium 10 Mg Tablet BY MOUTH 10 mg DAILY IVONE Administration Prednisone 40 mg 05/01/25 08:00 05/03/25 09:14 Prednisone 20 Mg Tablet PO 40 mg DAILY@0800 IVONE Administration Rivaroxaban 20 mg 04/28/25 17:00 05/02/25 17:33 Rivaroxaban 20 Mg Tablet BY MOUTH 20 mg DAILY@1700 IVONE Administration Senna/Docusate Sodium 1 tab 04/28/25 21:00 05/02/25 20:59 Senna/Docusate Sodium Tablet PO Not Given HS IVONE Sotalol HCl 80 mg 04/27/25 23:00 05/03/25 09:14 Sotalol Hcl 80 Mg Tablet PO 80 mg Q12HR IVONE Administration Radiology Results: ITS Impressions Chest X-Ray 04/27/25 13:28 IMPRESSION: 1: Chronic apical infiltrates which may represent atypical pneumonia, fibrosis or scarring. Head/Neck CTA 04/30/25 11:58 IMPRESSION: 1. Age-related changes the brain with mild diffuse volume loss and moderate scattered white matter hypoattenuation consistent with chronic small vessel ischemic disease. No acute intracranial process or abnormally enhancing brain lesion. 2. 30% stenosis of the right carotid bulb relative to normal distal artery lumen diameter (NASCET criteria). 3. Small amount of atherosclerotic plaque with 0% stenosis of the left carotid bulb relative to normal distal artery lumen diameter. 4. 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 5. Unremarkable cerebral CT angiogram with no thrombosis, hematoma significant stenosis or aneurysm. 6. Multifocal pneumonia in the upper lungs. Brain MRI 04/30/25 13:15 IMPRESSION: 1. Normal aging brain with mild diffuse volume loss and moderate scattered mesenteric periventricular predominant white matter T2 hyperintensity consistent with chronic small vessel ischemic disease. No acute intracranial process. Cervical Spine MRI 05/02/25 15:03 IMPRESSION: 1. Severe cervical spondylosis most notable for severe central canal and severe left and moderate right neural foraminal stenosis at C3-C4. 2. Instrumented C5-C6 anterior spinal fusion. Thoracic Spine MRI 05/02/25 15:28 IMPRESSION: 1. Moderate thoracic spondylosis. 2. Bilateral lung disease suspicious for pneumonia with small bilateral pleural effusions. Lumbar Spine MRI 05/02/25 15:42 IMPRESSION: 1. Severe lumbar spondylosis with severe central canal stenosis at L2-L3 and moderate to severe central canal stenosis at L3-L4 and L4-L5 despite posterior decompression with left hemilaminotomy superimposed of these levels. Labs Labs: Laboratory Results - last 24 hr 05/02/25 05/02/25 05/03/25 16:36 20:03 05:45 WBC 8.3 RBC 3.74 L Hgb 10.7 L Hct 34.6 L MCV 92.5 MCH 28.6 MCHC 30.9 L RDW 16.8 H Plt Count 219 MPV 12.1 H Sodium 135 L Potassium 3.1 L Chloride 103 Carbon Dioxide 29 Anion Gap 3 L BUN 19 H Creatinine 0.75 Estim Creat Clear Calc 53 Estimated GFR > 60 Glucose 158 H POC Capillary Glucose 229 H 329 H Calcium 10.0 Magnesium 1.7 Total Bilirubin 0.5 AST 51 H ALT 52 H Alkaline Phosphatase 243 H Total Protein 5.8 L Albumin 3.1 L 05/03/25 05/03/25 08:14 11:33 WBC RBC Hgb Hct MCV MCH MCHC RDW Plt Count MPV Sodium Potassium Chloride Carbon Dioxide Anion Gap BUN Creatinine Estim Creat Clear Calc Estimated GFR Glucose POC Capillary Glucose 135 H 177 H Calcium Magnesium Total Bilirubin AST ALT Alkaline Phosphatase Total Protein Albumin Quality VTE Prophylaxis VTE prophylaxis: pharmacologic ordered
[2025-05-03] MEDS: RIVAROXABAN 20 MG TABLET BY MOUTH (17:41)
[2025-05-03] MEDS: INSULIN ASPART (*BKC) 100 UNITS/ML SUB-Q ×2 (17:41→21:48)
[2025-05-03] MEDS: ASPIRIN 81 MG CHEWABLE TABLET PO (17:41)
[2025-05-03] MEDS: PRAMIPEXOLE 0.5 MG TABLET PO (21:46)
[2025-05-03] MEDS: MIRTAZAPINE 7.5 MG TABLET PO (21:46)
[2025-05-03] MEDS: LEFLUNOMIDE 20 MG TABLET PO (21:46)
[2025-05-03] MEDS: SENNA/DOCUSATE SODIUM TABLET 1 TAB PO (21:48)
[2025-05-03] MEDS: MELATONIN 3 MG TABLET PO (22:02)
[2025-05-04] VITALS (14 sets, daily range): BP systolic 134–149; BP diastolic 72–75; PULSE 83–98; RESP 16–20; TEMP 35.9–36.4; O2SAT 93–99
[2025-05-04] MEDS: IPRATROPIUM 0.5 MG/ALBUTEROL SULFATE 2.5 MG AMPUL.NEB 3 ML INHALATION ×4 (02:44→21:02)
[2025-05-04 06:10] LABS: Hematocrit 36.2 % (37.0-47.0); Hemoglobin 11.4 g/dL (12.0-15.0); Mean Corpuscular HGB Conc 31.5 g/dl (32-36); Mean Corpuscular Hemoglobin 28.4 pg (26-34); Mean Corpuscular Volume 90.3 fl (80-100); Platelet Count Result 239 k/mm3 (150-375); Red Blood Count 4.01 M/mm3 (4.2-5.4); White Blood Count 9.8 K/mm3 (4.5-10.0)
[2025-05-04 06:33] LABS: Alanine Aminotransferase 52 U/L (6-35); Albumin Level 3.2 g/dL (3.5-5.1); Alkaline Phosphatase 224 U/L (38-126); Anion Gap 5 mmol/L (4-12); Aspartate Amino Transferase 42 U/L (14-36); Bilirubin,Total 0.6 mg/dL (0.2-1.3); Blood Urea Nitrogen 21 mg/dL (7-17); Calcium 9.9 mg/dL (8.4-10.2); Carbon Dioxide 31 mmol/L (22-30); Chloride 99 mmol/L (98-107); Estimated CRCL calculation 54 ml/min; Estimated Glomerular Filt Rate > 60; Glucose 154 mg/dL (65-110); Magnesium 1.5 mg/dL (1.6-2.3); Potassium 3.0 mmol/L (3.4-5.0); Sodium 135 mmol/L (137-145); Total Protein 6.0 g/dL (6.3-8.2)
--- NOTE | 2025-05-04 06:55 | P.PNIM_ITS ---
Progress Note: A&P Assessment and Plan (1) Fall: Code(s): W19.XXXA - Unspecified fall, initial encounter Status: Acute Assessment and Plan: Patient with increasing generalized weakness at home had fall and was unable to get up on her own Did report she was not wearing her chronic oxygen of 4 L at that time this could likely be secondary to hypoxia versus UTI * PT OT eval and treat * Pain management with norco and Voltaren cream BL knee/thigh pain HX OA with bilateral knee replacements * Neurology consulted for weakness In addition to the fall that brought her to the hospital she has increasing weakness in both lower limbs over last 1 year. MRI of the brain shows some white matter changes not sufficient to account for all the problems he is having. Suggest an MRI of the cervical, thoracic and lumbosacral spine and check her postvoid residual urine volume. If the study does not show any significant myelopathy she will require EMG nerve study of both lower limbs. - C spine MRI: Severe cervical spondylosis most notable for severe central canal and severe left and moderate right neural foraminal stenosis at C3-C4. Instrumented C5-C6 anterior spinal fusion. - T spine MRI: Moderate thoracic spondylosis. - L spine MRI: Severe lumbar spondylosis with severe central canal stenosis at L2-L3 and moderate to severe central canal stenosis at L3-L4 and L4-L5 despite posterior decompression with left hemilaminotomy superimposed of these levels. Patient to follow up in neuro office for EMG nerve study. (2) UTI (urinary tract infection): Code(s): N39.0 - Urinary tract infection, site not specified Status: Acute Assessment and Plan: - UA concerning for infection - UC: pansensitive ecoli - no previous micro to be reviewed - started on rocephin, course completed during admission. (3) Pneumonia: Code(s): J18.9 - Pneumonia, unspecified organism Status: Acute Assessment and Plan: CXR: Chronic apical infiltrates which may represent atypical pneumonia, fibrosis or scarring. Head/neck CTA: Multifocal pneumonia in the upper lungs. - Complicating Factors: COPD with chronic respiratory failure - started on CAP tx: started on doxycycline (patient on sotalol ovoid azithromycin due to QTC prolongation) and ceftriaxone on 04/30 transitioned to cefdinir (course completed), doxycycline course to be completed today - Prednisone 40mg due to wheezing and chronic COPD started on 05/01 - Viral PCR: negative for Flu/COVID/RSV. MRSA negative. - remains on baseline supplemental O2 requirement of 3-4 L NC - Monitor vital signs, I&Os, neuro status and patient is a fall risk - Follow WBC, serum electrolytes, temperature curves and cultures (4) TIA (transient ischemic attack): Code(s): G45.9 - Transient cerebral ischemic attack, unspecified Status: Acute Assessment and Plan: On 04/30 patient with acute onset of confusion difficulty with fine motor skills per nursing staff upon my assessment patient's symptoms had resolved with previous history of TIA. CTA: 1. Age-related changes the brain with mild diffuse volume loss and moderate scattered white matter hypoattenuation consistent with chronic small vessel ischemic disease. No acute intracranial process or abnormally enhancing brain lesion. 2. 30% stenosis of the right carotid bulb and small amount of atherosclerotic plaque with 0% stenosis of the left carotid bulb 4. 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 MRI: 1. Normal aging brain with mild diffuse volume loss and moderate scattered mesenteric periventricular predominant white matter T2 hyperintensity consistent with chronic small vessel ischemic disease. No acute intracranial process. - started on ASA 81 mg and continue pravastatin 10 mg daily - Initiate stroke protocol, NIH Stroke Scale, neuro's q.4 hours - Monitor CBC, CMP, magnesium, troponin, and lipid profile - Monitor blood pressure, allow for permissive hypertension. - Telemetry monitoring - Monitor blood glucose - PT/OT eval and treat - Neurology consulted, appreciate assistance and recommendations (5) Chronic respiratory failure with hypoxia, on home oxygen therapy: Code(s): J96.11 - Chronic respiratory failure with hypoxia; Z99.81 - Dependence on supplemental oxygen Status: Acute Assessment and Plan: Secondary to COPD on 4L supplemental oxygen at home * Duonebs * prednisone 40mg daily * See above under PNA (6) Chronic obstructive pulmonary disease, unspecified: Code(s): J44.9 - Chronic obstructive pulmonary disease, unspecified Status: Acute Assessment and Plan: * On 4L supplemental oxygen at home * Duonebs * prednisone 40mg daily * See above under PNA (7) Acute hypokalemia: Code(s): E87.6 - Hypokalemia Status: Acute Assessment and Plan: K 3.0 on am labs, given 40 mg KCl PO * Repeat labs in the morning * Replenish as needed * Telemetry (8) Hypomagnesemia: Code(s): E83.42 - Hypomagnesemia Status: Resolved Assessment and Plan: Magnesium level 1.5. * Replace with 2 g IV * Trend labs (9) Hypercalcemia: Code(s): E83.52 - Hypercalcemia Status: Acute Assessment and Plan: Patient had a critical calcium of 12.7 likely secondary to rheumatoid arthritis however patient did state that she takes a vitamin D and multivitamin at home. * PTH pending * Vitamin-D normal * TSH within normal * Vitamin A pending Has returned to WNL with IV fluids. Continue to monitor. (10) Fatty liver disease, nonalcoholic: Code(s): K76.0 - Fatty (change of) liver, not elsewhere classified Status: Acute Assessment and Plan: Patient with elevated liver enzymes. 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 Patient is pleasant sitting up comfortably in her chair with the med bedside. She remains alert and oriented x3 at time of assessment. She denies any shortness of breath stating that she remains at her baseline. She denies any cough. Patient is to complete her antibiotics for pneumonia today. She remains at her baseline 4 L nasal cannula. Patient denies any UTI like symptoms including burning sensations/dysuria/hematuria/urgency/frequency. Patient also denies any tingling/numbness/weakness. Patient has no other complaints denying chest pain, palpitations, nausea/vomiting, abdominal pain. Patient continues to work well with therapy and is waiting on insurance authorization for placement. Review of Systems Review of Systems: All systems reviewed & are unremarkable except as noted in HPI and below Exam Narrative: AF HR 88 RR 20 SpO2 94 3L NC baseline BP 145/75 General: female in no acute respiratory distress who is nontoxic appearing, sitt ing up in chair HEENT: Normocephalic. Atraumatic. Extraocular movement intact. Sclera clear and anicteric. No facial asymmetry. Chest: Lungs are clear to auscultation bilaterally. No wheezes or crackles. CV: Heart was regular rate and rhythm. S1-S2. No murmurs, gallops, or rubs. Abd: Abdomen was soft. Nontender. Nondistended. Positive bowel sounds. Ext: No clubbing, cyanosis, or edema. DP pulses bilaterally. Neuro: Patient is alert and oriented x4. Strength is 5/5 in both upper and lower extremities. Cranial nerves 2-12 are intact. Speech is clear. Objective Data Vital Signs Vital Signs: Vital Signs - 24 hr 05/03/25 07:43 05/03/25 09:12 05/03/25 09:14 Temperature Pulse Rate 84 84 Respiratory Rate 16 Blood Pressure Pulse Oximetry 94 Oxygen Delivery Nasal Cannula Oxygen Flow Rate 3 Fraction of Inspired Oxygen 05/03/25 09:15 05/03/25 13:37 05/03/25 13:45 Temperature Pulse Rate 84 89 92 Respiratory Rate 16 16 Blood Pressure Pulse Oximetry Oxygen Delivery Oxygen Flow Rate Fraction of Inspired Oxygen 05/03/25 14:00 05/03/25 19:16 05/03/25 19:18 Temperature 97.8 F Pulse Rate 93 100 100 Respiratory Rate 18 20 20 Blood Pressure 132/70 Pulse Oximetry 96 91 Oxygen Delivery Nasal Cannula Oxygen Flow Rate 3 Fraction of Inspired Oxygen 32 05/03/25 19:27 05/03/25 20:00 05/03/25 21:46 Temperature Pulse Rate 97 84 Respiratory Rate 20 Blood Pressure Pulse Oximetry 94 Oxygen Delivery Nasal Cannula Oxygen Flow Rate 3 Fraction of Inspired Oxygen 05/03/25 21:48 05/03/25 22:00 05/04/25 02:44 Temperature 97.2 F L Pulse Rate 84 101 H 83 Respiratory Rate 16 20 Blood Pressure 139/83 Pulse Oximetry 94 Oxygen Delivery Oxygen Flow Rate Fraction of Inspired Oxygen 05/04/25 02:49 05/04/25 06:09 Temperature 97.0 F L Pulse Rate 87 84 Respiratory Rate 20 18 Blood Pressure 145/75 H Pulse Oximetry 99 Oxygen Delivery Oxygen Flow Rate Fraction of Inspired Oxygen Intake/Output Intake/Output: Intake & Output 05/01/25 05/02/25 05/03/25 05/04/25 23:59 23:59 23:59 23:59 Intake Total 3943.8 2080 1960 300 Output Total 200 600 Balance 3943.8 2080 1760 -300 Meds/Results Medications: Active Medications Generic Name Dose Route Start Last Admin Trade Name Freq PRN Reason Stop Dose Admin Acetaminophen 650 mg 04/27/25 17:04 04/28/25 10:59 Acetaminophen 325 Mg Tablet PO 650 mg Q4H PRN Administration Mild Pain (1-3) or Fever Hydrocodone Bitart/Acetaminophen 1 tab 04/28/25 14:50 Hydrocodone/Acetaminophen (*Crx) 5-325 Mg Tablet PO Q4H PRN Pain Rated 4-6 Albuterol 2.5 mg 04/28/25 13:31 Albuterol Sulfate Neb 2.5 Mg/3 Ml Inh INHALATION Q6HRT PRN Wheezing Albuterol/Ipratropium 3 ml 05/01/25 08:00 05/04/25 02:44 Ipratropium 0.5 Mg/Albuterol Sulfate 2.5 Mg Ampul.Neb 3 Ml INHALATION 3 ml Q6HRT IVONE Administration Aspirin 81 mg 05/01/25 08:00 05/03/25 17:41 Aspirin 81 Mg Chewable Tablet PO 81 mg DAILY@0800 IVONE Administration Budesonide 0.5 mg 05/01/25 08:00 05/03/25 19:16 Budesonide Respule Neb 0.5 Mg/2 Ml Amp INHALATION 0.5 mg Q12HRT IVONE Administration Dextrose 12.5 gm 04/27/25 17:05 Dextrose 50% 25 Gm/50 Ml Syringe IV PUSH PRN PRN Hypoglycemia Protocol Diclofenac Sodium 1 applic 05/03/25 14:13 Diclofenac Sodium 1% 100 Gm Gel (*Bkc) TOPICAL QID PRN knee pain Doxycycline Hyclate 100 mg 04/30/25 13:50 05/03/25 21:46 Doxycycline Hyclate 100 Mg Tablet PO 05/04/25 21:01 100 mg Q12HR IVONE Administration Furosemide 40 mg 04/28/25 09:00 05/03/25 09:14 Furosemide 40 Mg Tablet BY MOUTH 40 mg DAILY IVONE Administration Glucagon 1 mg 04/27/25 17:05 Glucagon For Inj 1 Mg Vial IM PRN PRN Hypoglycemia Protocol Glucose 15 gm 04/27/25 17:05 Glucose Oral Gel 15 Gm Of Glucse In 37.5 Gm Tube PO PRN PRN Hypoglycemia Protocol Guaifenesin 1,200 mg 05/01/25 09:00 05/03/25 21:46 Guaifenesin 12 Hr 600 Mg Tabcr PO 1,200 mg Q12HR IVONE Administration Dextrose 1,000 mls @ 100 mls/hr 04/27/25 17:05 Dextrose 5% 1,000 Ml IVPB PRN PRN Hypoglycemia Protocol Insulin Aspart 2 - 5 units 04/28/25 08:00 05/03/25 17:41 Insulin Aspart (*Bkc) 100 Units/Ml SUB-Q 4 units TIDWM IVONE Administration Protocol Insulin Aspart 1 - 2 units 04/27/25 21:00 05/03/25 21:48 Insulin Aspart (*Bkc) 100 Units/Ml SUB-Q 1 units HS IVONE Administration Protocol Leflunomide 20 mg 04/27/25 22:55 05/03/25 21:46 Leflunomide 20 Mg Tablet PO 20 mg HS IVONE Administration Melatonin 3 mg 05/03/25 11:07 05/03/25 22:02 Melatonin 3 Mg Tablet PO 3 mg HS PRN Administration Insomnia Metoprolol Tartrate 25 mg 04/27/25 22:30 05/03/25 21:48 Metoprolol Tartrate 25 Mg Tablet BY MOUTH 25 mg Q12HR IVONE Administration Mirtazapine 7.5 mg 04/27/25 23:00 05/03/25 21:46 Mirtazapine 7.5 Mg Tablet PO 7.5 mg QHS IVONE Administration Pantoprazole Sodium 40 mg 04/28/25 09:00 05/03/25 09:14 Pantoprazole 40 Mg Tablet PO 40 mg QAM IVONE Administration Pramipexole Dihydrochloride 0.5 mg 04/27/25 23:00 05/03/25 21:46 Pramipexole 0.5 Mg Tablet PO 0.5 mg HS IVONE Administration Pravastatin Sodium 10 mg 04/28/25 09:00 05/03/25 09:13 Pravastatin Sodium 10 Mg Tablet BY MOUTH 10 mg DAILY IVONE Administration Prednisone 40 mg 05/01/25 08:00 05/03/25 09:14 Prednisone 20 Mg Tablet PO 40 mg DAILY@0800 IVONE Administration Rivaroxaban 20 mg 04/28/25 17:00 05/03/25 17:41 Rivaroxaban 20 Mg Tablet BY MOUTH 20 mg DAILY@1700 IVONE Administration Senna/Docusate Sodium 1 tab 04/28/25 21:00 05/03/25 21:48 Senna/Docusate Sodium Tablet PO 1 tab HS IVONE Administration Sotalol HCl 80 mg 04/27/25 23:00 05/03/25 21:46 Sotalol Hcl 80 Mg Tablet PO 80 mg Q12HR IVONE Administration Radiology Results: ITS Impressions Chest X-Ray 04/27/25 13:28 IMPRESSION: 1: Chronic apical infiltrates which may represent atypical pneumonia, fibrosis or scarring. Head/Neck CTA 04/30/25 11:58 IMPRESSION: 1. Age-related changes the brain with mild diffuse volume loss and moderate scattered white matter hypoattenuation consistent with chronic small vessel ischemic disease. No acute intracranial process or abnormally enhancing brain lesion. 2. 30% stenosis of the right carotid bulb relative to normal distal artery lumen diameter (NASCET criteria). 3. Small amount of atherosclerotic plaque with 0% stenosis of the left carotid bulb relative to normal distal artery lumen diameter. 4. 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 5. Unremarkable cerebral CT angiogram with no thrombosis, hematoma significant stenosis or aneurysm. 6. Multifocal pneumonia in the upper lungs. Brain MRI 04/30/25 13:15 IMPRESSION: 1. Normal aging brain with mild diffuse volume loss and moderate scattered mesenteric periventricular predominant white matter T2 hyperintensity consistent with chronic small vessel ischemic disease. No acute intracranial process. Cervical Spine MRI 05/02/25 15:03 IMPRESSION: 1. Severe cervical spondylosis most notable for severe central canal and severe left and moderate right neural foraminal stenosis at C3-C4. 2. Instrumented C5-C6 anterior spinal fusion. Thoracic Spine MRI 05/02/25 15:28 IMPRESSION: 1. Moderate thoracic spondylosis. 2. Bilateral lung disease suspicious for pneumonia with small bilateral pleural effusions. Lumbar Spine MRI 05/02/25 15:42 IMPRESSION: 1. Severe lumbar spondylosis with severe central canal stenosis at L2-L3 and moderate to severe central canal stenosis at L3-L4 and L4-L5 despite posterior decompression with left hemilaminotomy superimposed of these levels. Labs Labs: Laboratory Results - last 24 hr 05/03/25 05/03/25 05/03/25 08:14 11:33 16:46 WBC RBC Hgb Hct MCV MCH MCHC RDW Plt Count MPV Sodium Potassium Chloride Carbon Dioxide Anion Gap BUN Creatinine Estim Creat Clear Calc Estimated GFR Glucose POC Capillary Glucose 135 H 177 H 347 H Calcium Magnesium Total Bilirubin AST ALT Alkaline Phosphatase Total Protein Albumin 05/03/25 05/04/25 21:10 05:53 WBC 9.8 RBC 4.01 L Hgb 11.4 L Hct 36.2 L MCV 90.3 MCH 28.4 MCHC 31.5 L RDW 16.5 H Plt Count 239 MPV 11.8 H Sodium 135 L Potassium 3.0 L Chloride 99 Carbon Dioxide 31 H Anion Gap 5 BUN 21 H Creatinine 0.73 Estim Creat Clear Calc 54 Estimated GFR > 60 Glucose 154 H POC Capillary Glucose 280 H Calcium 9.9 Magnesium 1.5 L Total Bilirubin 0.6 AST 42 H ALT 52 H Alkaline Phosphatase 224 H Total Protein 6.0 L Albumin 3.2 L Quality VTE Prophylaxis VTE prophylaxis: pharmacologic ordered
[2025-05-04] MEDS: BUDESONIDE RESPULE NEB 0.5 MG/2 ML AMP INHALATION ×2 (07:27→21:02)
[2025-05-04] MEDS: FUROSEMIDE 40 MG TABLET BY MOUTH (08:54)
[2025-05-04] MEDS: SOTALOL HCL 80 MG TABLET PO ×2 (08:54→21:34)
[2025-05-04] MEDS: METOPROLOL TARTRATE 25 MG TABLET BY MOUTH ×2 (08:55→21:34)
[2025-05-04] MEDS: DOXYCYCLINE HYCLATE 100 MG TABLET PO ×2 (08:55→20:37)
[2025-05-04] MEDS: guaiFENesin 12 HR 600 MG TABCR 1200 MG PO ×2 (08:55→20:36)
[2025-05-04] MEDS: ASPIRIN 81 MG CHEWABLE TABLET PO (08:55)
[2025-05-04] MEDS: PANTOPRAZOLE 40 MG TABLET PO (08:55)
[2025-05-04] MEDS: PRAVASTATIN SODIUM 10 MG TABLET BY MOUTH (08:55)
[2025-05-04] MEDS: MAGNESIUM SULF 2 GM/WATER 50ML 2 GM/50 ML BAG IVPB (09:00)
[2025-05-04] MEDS: POTASSIUM CHLORIDE 20 MEQ ER TABLET 40 MEQ PO (09:01)
[2025-05-04] MEDS: RIVAROXABAN 20 MG TABLET BY MOUTH (17:17)
[2025-05-04] MEDS: INSULIN ASPART (*BKC) 100 UNITS/ML SUB-Q ×2 (17:20→21:33)
[2025-05-04] MEDS: SENNA/DOCUSATE SODIUM TABLET 1 TAB PO (20:35)
[2025-05-04] MEDS: MIRTAZAPINE 7.5 MG TABLET PO (20:35)
[2025-05-04] MEDS: LEFLUNOMIDE 20 MG TABLET PO (20:36)
[2025-05-04] MEDS: PRAMIPEXOLE 0.5 MG TABLET PO (20:37)
[2025-05-04] MEDS: MELATONIN 3 MG TABLET PO (21:34)
[2025-05-05] VITALS (16 sets, daily range): BP systolic 135–154; BP diastolic 58–90; PULSE 68–99; RESP 18–22; TEMP 36.2–36.4; O2SAT 95–97
[2025-05-05 06:14] LABS: Hematocrit 36.4 % (37.0-47.0); Hemoglobin 11.3 g/dL (12.0-15.0); Mean Corpuscular HGB Conc 31.0 g/dl (32-36); Mean Corpuscular Hemoglobin 28.0 pg (26-34); Mean Corpuscular Volume 90.1 fl (80-100); Platelet Count Result 305 k/mm3 (150-375); Red Blood Count 4.04 M/mm3 (4.2-5.4); White Blood Count 10.1 K/mm3 (4.5-10.0)
[2025-05-05 06:40] LABS: Alanine Aminotransferase 57 U/L (6-35); Albumin Level 3.3 g/dL (3.5-5.1); Alkaline Phosphatase 241 U/L (38-126); Anion Gap 4 mmol/L (4-12); Aspartate Amino Transferase 44 U/L (14-36); Bilirubin,Total 0.5 mg/dL (0.2-1.3); Blood Urea Nitrogen 22 mg/dL (7-17); Calcium 9.8 mg/dL (8.4-10.2); Carbon Dioxide 31 mmol/L (22-30); Chloride 99 mmol/L (98-107); Estimated CRCL calculation 51 ml/min; Estimated Glomerular Filt Rate > 60; Glucose 129 mg/dL (65-110); Magnesium 1.9 mg/dL (1.6-2.3); Potassium 3.1 mmol/L (3.4-5.0); Sodium 134 mmol/L (137-145); Total Protein 6.2 g/dL (6.3-8.2)
--- NOTE | 2025-05-05 06:56 | P.PNIM_ITS ---
Progress Note: A&P Assessment and Plan (1) Fall: Code(s): W19.XXXA - Unspecified fall, initial encounter Status: Acute Assessment and Plan: Patient with increasing generalized weakness at home had fall and was unable to get up on her own Did report she was not wearing her chronic oxygen of 4 L at that time this could likely be secondary to hypoxia versus UTI * PT OT eval and treat * Pain management with norco and Voltaren cream BL knee/thigh pain HX OA with bilateral knee replacements * Neurology consulted for weakness In addition to the fall that brought her to the hospital she has increasing weakness in both lower limbs over last 1 year. MRI of the brain shows some white matter changes not sufficient to account for all the problems he is having. Suggest an MRI of the cervical, thoracic and lumbosacral spine and check her postvoid residual urine volume. If the study does not show any significant myelopathy she will require EMG nerve study of both lower limbs. - C spine MRI: Severe cervical spondylosis most notable for severe central canal and severe left and moderate right neural foraminal stenosis at C3-C4. Instrumented C5-C6 anterior spinal fusion. - T spine MRI: Moderate thoracic spondylosis. - L spine MRI: Severe lumbar spondylosis with severe central canal stenosis at L2-L3 and moderate to severe central canal stenosis at L3-L4 and L4-L5 despite posterior decompression with left hemilaminotomy superimposed of these levels. Patient awaiting a neurosurgery consult for severe cervical myelopathy. Called neurosurgery office, spoke with front facer who plans to update neurosurgery again today about the consult. Appreciate recommendations. Patient to follow up in neuro office for EMG nerve study. (2) UTI (urinary tract infection): Code(s): N39.0 - Urinary tract infection, site not specified Status: Acute Assessment and Plan: - UA concerning for infection - UC: pansensitive ecoli - no previous micro to be reviewed - started on rocephin, course completed during admission. (3) Pneumonia: Code(s): J18.9 - Pneumonia, unspecified organism Status: Acute Assessment and Plan: CXR: Chronic apical infiltrates which may represent atypical pneumonia, fibrosis or scarring. Head/neck CTA: Multifocal pneumonia in the upper lungs. - Complicating Factors: COPD with chronic respiratory failure - started on CAP tx: started on doxycycline (patient on sotalol ovoid azithromycin due to QTC prolongation) and ceftriaxone on 04/30 transitioned to cefdinir and doxycycline, course completed - Prednisone 40mg due to wheezing and chronic COPD started on 05/01, course completed. No wheezing on exam. - Viral PCR: negative for Flu/COVID/RSV. MRSA negative. - remains on baseline supplemental O2 requirement of 3-4 L NC - Monitor vital signs, I&Os, neuro status and patient is a fall risk - Follow WBC, serum electrolytes, temperature curves and cultures (4) TIA (transient ischemic attack): Code(s): G45.9 - Transient cerebral ischemic attack, unspecified Status: Acute Assessment and Plan: On 04/30 patient with acute onset of confusion difficulty with fine motor skills per nursing staff upon my assessment patient's symptoms had resolved with previous history of TIA. CTA: 1. Age-related changes the brain with mild diffuse volume loss and moderate scattered white matter hypoattenuation consistent with chronic small vessel ischemic disease. No acute intracranial process or abnormally enhancing brain lesion. 2. 30% stenosis of the right carotid bulb and small amount of atherosclerotic plaque with 0% stenosis of the left carotid bulb 4. 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 MRI: 1. Normal aging brain with mild diffuse volume loss and moderate scattered mesenteric periventricular predominant white matter T2 hyperintensity consistent with chronic small vessel ischemic disease. No acute intracranial process. - started on ASA 81 mg and continue pravastatin 10 mg daily - Initiate stroke protocol, NIH Stroke Scale, neuro's q.4 hours - Monitor CBC, CMP, magnesium, troponin, and lipid profile - Monitor blood pressure, allow for permissive hypertension. - Telemetry monitoring - Monitor blood glucose - PT/OT eval and treat - Neurology consulted, appreciate assistance and recommendations (5) Chronic respiratory failure with hypoxia, on home oxygen therapy: Code(s): J96.11 - Chronic respiratory failure with hypoxia; Z99.81 - Dependence on supplemental oxygen Status: Acute Assessment and Plan: Secondary to COPD on 4L supplemental oxygen at home * Duonebs * prednisone 40mg daily, course completed * See above under PNA (6) Chronic obstructive pulmonary disease, unspecified: Code(s): J44.9 - Chronic obstructive pulmonary disease, unspecified Status: Acute Assessment and Plan: * On 4L supplemental oxygen at home * Duonebs * prednisone 40mg daily, course completed * See above under PNA (7) Acute hypokalemia: Code(s): E87.6 - Hypokalemia Status: Acute Assessment and Plan: K 3.0 on am labs, given 40 mg KCl PO * Repeat labs in the morning * Replenish as needed * Telemetry (8) Hypomagnesemia: Code(s): E83.42 - Hypomagnesemia Status: Resolved Assessment and Plan: Magnesium level 1.5. * Replace with 2 g IV * Trend labs (9) Hypercalcemia: Code(s): E83.52 - Hypercalcemia Status: Acute Assessment and Plan: Patient had a critical calcium of 12.7 likely secondary to rheumatoid arthritis however patient did state that she takes a vitamin D and multivitamin at home. * PTH pending * Vitamin-D normal * TSH within normal * Vitamin A pending Has returned to WNL with IV fluids. Continue to monitor. (10) Fatty liver disease, nonalcoholic: Code(s): K76.0 - Fatty (change of) liver, not elsewhere classified Status: Acute Assessment and Plan: Patient with elevated liver enzymes. 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 Patient is pleasant sitting up comfortably in her chair. She has no complaints denying chest pain, shortness a breath, palpitations, nausea/vomiting, abdominal pain. Patient awaiting a neurosurgery consult for severe cervical myelopathy. Called neurosurgery office, spoke with front facer who plans to update neurosurgery again today about the consult. Appreciate recommendations. Review of Systems Review of Systems: All systems reviewed & are unremarkable except as noted in HPI and below Exam Narrative: AF HR 68 RR 20 Spo2 95 3L NC baseline BP 154/90 General: female in no acute respiratory distress who is nontoxic appearing, sitting up in chair HEENT: Normocephalic. Atraumatic. Extraocular movement intact. Sclera clear and anicteric. No facial asymmetry. Chest: Lungs are clear to auscultation bilaterally. No wheezes or crackles. CV: Heart was regular rate and rhythm. Abd: Abdomen was soft. Nontender. Nondistended. Positive bowel sounds. Ext: No clubbing, cyanosis, or edema. DP pulses bilaterally. Neuro: Patient is alert and oriented x4. Speech is clear. Objective Data Vital Signs Vital Signs: Vital Signs - 24 hr 05/04/25 07:29 05/04/25 07:29 05/04/25 07:39 Temperature Pulse Rate 95 88 Respiratory Rate 20 20 Blood Pressure Pulse Oximetry 94 Oxygen Delivery Nasal Cannula Oxygen Flow Rate 05/04/25 08:53 05/04/25 08:54 05/04/25 08:55 Temperature Pulse Rate 88 88 Respiratory Rate Blood Pressure Pulse Oximetry 94 Oxygen Delivery Nasal Cannula Oxygen Flow Rate 05/04/25 13:44 05/04/25 13:53 05/04/25 13:53 Temperature 96.7 F L Pulse Rate 91 86 91 Respiratory Rate 20 20 16 Blood Pressure 149/73 H Pulse Oximetry 93 Oxygen Delivery Oxygen Flow Rate 05/04/25 21:02 05/04/25 21:10 05/04/25 21:34 Temperature Pulse Rate 98 98 95 Respiratory Rate 16 16 Blood Pressure Pulse Oximetry 93 Oxygen Delivery Nasal Cannula Oxygen Flow Rate 2 05/04/25 21:34 05/04/25 22:01 Temperature 97.6 F Pulse Rate 95 98 Respiratory Rate 18 Blood Pressure 134/72 Pulse Oximetry 97 Oxygen Delivery Oxygen Flow Rate Intake/Output Intake/Output: Intake & Output 05/02/25 05/03/25 05/04/25 05/05/25 23:59 23:59 23:59 23:59 Intake Total 2079 1959 142 Output Total 200 600 Balance 2079 176 820 Meds/Results Medications: Active Medications Generic Name Dose Route Start Last Admin Trade Name Freq PRN Reason Stop Dose Admin Acetaminophen 650 mg 04/27/25 17:04 04/28/25 10:59 Acetaminophen 325 Mg Tablet PO 650 mg Q4H PRN Administration Mild Pain (1-3) or Fever Hydrocodone Bitart/Acetaminophen 1 tab 04/28/25 14:50 Hydrocodone/Acetaminophen (*Crx) 5-325 Mg Tablet PO Q4H PRN Pain Rated 4-6 Albuterol 2.5 mg 04/28/25 13:31 Albuterol Sulfate Neb 2.5 Mg/3 Ml Inh INHALATION Q6HRT PRN Wheezing Albuterol/Ipratropium 3 ml 05/01/25 08:00 05/05/25 00:46 Ipratropium 0.5 Mg/Albuterol Sulfate 2.5 Mg Ampul.Neb 3 Ml INHALATION Not Given Q6HRT [facility] Aspirin 81 mg 05/01/25 08:00 05/04/25 08:55 Aspirin 81 Mg Chewable Tablet PO 81 mg DAILY@0800 [facility] Administration Budesonide 0.5 mg 05/01/25 08:00 05/04/25 21:02 Budesonide Respule Neb 0.5 Mg/2 Ml Amp INHALATION 0.5 mg Q12HRT [facility] Administration Dextrose 12.5 gm 04/27/25 17:05 Dextrose 50% 25 Gm/50 Ml Syringe IV PUSH PRN PRN Hypoglycemia Protocol Diclofenac Sodium 1 applic 05/03/25 14:13 Diclofenac Sodium 1% 100 Gm Gel (*Bkc) TOPICAL QID PRN knee pain Furosemide 40 mg 04/28/25 09:00 05/04/25 08:54 Furosemide 40 Mg Tablet BY MOUTH 40 mg DAILY [facility] Administration Glucagon 1 mg 04/27/25 17:05 Glucagon For Inj 1 Mg Vial IM PRN PRN Hypoglycemia Protocol Glucose 15 gm 04/27/25 17:05 Glucose Oral Gel 15 Gm Of Glucse In 37.5 Gm Tube PO PRN PRN Hypoglycemia Protocol Guaifenesin 1,200 mg 05/01/25 09:00 05/04/25 20:36 Guaifenesin 12 Hr 600 Mg Tabcr PO 1,200 mg Q12HR IVONE Administration Dextrose 1,000 mls @ 100 mls/hr 04/27/25 17:05 Dextrose 5% 1,000 Ml IVPB PRN PRN Hypoglycemia Protocol Insulin Aspart 2 - 5 units 04/28/25 08:00 05/04/25 17:20 Insulin Aspart (*Bkc) 100 Units/Ml SUB-Q 3 units TIDWM IVONE Administration Protocol Insulin Aspart 1 - 2 units 04/27/25 21:00 05/04/25 21:33 Insulin Aspart (*Bkc) 100 Units/Ml SUB-Q 1 units HS IVONE Administration Protocol Leflunomide 20 mg 04/27/25 22:55 05/04/25 20:36 Leflunomide 20 Mg Tablet PO 20 mg HS IVONE Administration Melatonin 3 mg 05/03/25 11:07 05/04/25 21:34 Melatonin 3 Mg Tablet PO 3 mg HS PRN Administration Insomnia Metoprolol Tartrate 25 mg 04/27/25 22:30 05/04/25 21:34 Metoprolol Tartrate 25 Mg Tablet BY MOUTH 25 mg Q12HR IVONE Administration Mirtazapine 7.5 mg 04/27/25 23:00 05/04/25 20:35 Mirtazapine 7.5 Mg Tablet PO 7.5 mg QHS IVONE Administration Pantoprazole Sodium 40 mg 04/28/25 09:00 05/04/25 08:55 Pantoprazole 40 Mg Tablet PO 40 mg QAM IVONE Administration Pramipexole Dihydrochloride 0.5 mg 04/27/25 23:00 05/04/25 20:37 Pramipexole 0.5 Mg Tablet PO 0.5 mg HS IVONE Administration Pravastatin Sodium 10 mg 04/28/25 09:00 05/04/25 08:55 Pravastatin Sodium 10 Mg Tablet BY MOUTH 10 mg DAILY IVONE Administration Prednisone 40 mg 05/01/25 08:00 05/04/25 08:55 Prednisone 20 Mg Tablet PO 40 mg DAILY@0800 IVONE Administration Rivaroxaban 20 mg 04/28/25 17:00 05/04/25 17:17 Rivaroxaban 20 Mg Tablet BY MOUTH 20 mg DAILY@1700 [facility] Administration Senna/Docusate Sodium 1 tab 04/28/25 21:00 05/04/25 20:35 Senna/Docusate Sodium Tablet PO 1 tab HS IVONE Administration Sotalol HCl 80 mg 04/27/25 23:00 05/04/25 21:34 Sotalol Hcl 80 Mg Tablet PO 80 mg Q12HR IVONE Administration Radiology Results: ITS Impressions Chest X-Ray 04/27/25 13:28 IMPRESSION: 1: Chronic apical infiltrates which may represent atypical pneumonia, fibrosis or scarring. Head/Neck CTA 04/30/25 11:58 IMPRESSION: 1. Age-related changes the brain with mild diffuse volume loss and moderate scattered white matter hypoattenuation consistent with chronic small vessel ischemic disease. No acute intracranial process or abnormally enhancing brain lesion. 2. 30% stenosis of the right carotid bulb relative to normal distal artery lumen diameter (NASCET criteria). 3. Small amount of atherosclerotic plaque with 0% stenosis of the left carotid bulb relative to normal distal artery lumen diameter. 4. 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 5. Unremarkable cerebral CT angiogram with no thrombosis, hematoma significant stenosis or aneurysm. 6. Multifocal pneumonia in the upper lungs. Brain MRI 04/30/25 13:15 IMPRESSION: 1. Normal aging brain with mild diffuse volume loss and moderate scattered mesenteric periventricular predominant white matter T2 hyperintensity consistent with chronic small vessel ischemic disease. No acute intracranial process. Cervical Spine MRI 05/02/25 15:03 IMPRESSION: 1. Severe cervical spondylosis most notable for severe central canal and severe left and moderate right neural foraminal stenosis at C3-C4. 2. Instrumented C5-C6 anterior spinal fusion. Thoracic Spine MRI 05/02/25 15:28 IMPRESSION: 1. Moderate thoracic spondylosis. 2. Bilateral lung disease suspicious for pneumonia with small bilateral pleural effusions. Lumbar Spine MRI 05/02/25 15:42 IMPRESSION: 1. Severe lumbar spondylosis with severe central canal stenosis at L2-L3 and moderate to severe central canal stenosis at L3-L4 and L4-L5 despite posterior decompression with left hemilaminotomy superimposed of these levels. Labs Labs: Laboratory Results - last 24 hr 05/04/25 05/04/25 05/04/25 08:11 11:38 16:50 WBC RBC Hgb Hct MCV MCH MCHC RDW Plt Count MPV Sodium Potassium Chloride Carbon Dioxide Anion Gap BUN Creatinine Estim Creat Clear Calc Estimated GFR Glucose POC Capillary Glucose 116 H 195 H 269 H Calcium Magnesium Total Bilirubin AST ALT Alkaline Phosphatase Total Protein Albumin 05/04/25 05/05/25 20:34 05:37 WBC 10.1 H RBC 4.04 L Hgb 11.3 L Hct 36.4 L MCV 90.1 MCH 28.0 MCHC 31.0 L RDW 17.0 H Plt Count 305 MPV 11.8 H Sodium 134 L Potassium 3.1 L Chloride 99 Carbon Dioxide 31 H Anion Gap 4 BUN 22 H Creatinine 0.78 Estim Creat Clear Calc 51 Estimated GFR > 60 Glucose 129 H POC Capillary Glucose 292 H Calcium 9.8 Magnesium 1.9 Total Bilirubin 0.5 AST 44 H ALT 57 H Alkaline Phosphatase 241 H Total Protein 6.2 L Albumin 3.3 L Quality VTE Prophylaxis VTE prophylaxis: pharmacologic ordered
[2025-05-05] MEDS: BUDESONIDE RESPULE NEB 0.5 MG/2 ML AMP INHALATION ×2 (07:43→20:39)
[2025-05-05] MEDS: IPRATROPIUM 0.5 MG/ALBUTEROL SULFATE 2.5 MG AMPUL.NEB 3 ML INHALATION ×3 (07:43→20:39)
[2025-05-05] MEDS: POTASSIUM CHLORIDE 20 MEQ ER TABLET 40 MEQ PO (08:57)
[2025-05-05] MEDS: SOTALOL HCL 80 MG TABLET PO ×2 (08:57→21:09)
[2025-05-05] MEDS: guaiFENesin 12 HR 600 MG TABCR 1200 MG PO ×2 (08:58→21:07)
[2025-05-05] MEDS: PANTOPRAZOLE 40 MG TABLET PO (08:58)
[2025-05-05] MEDS: FUROSEMIDE 40 MG TABLET BY MOUTH (08:58)
[2025-05-05] MEDS: METOPROLOL TARTRATE 25 MG TABLET BY MOUTH ×2 (08:58→21:08)
[2025-05-05] MEDS: ASPIRIN 81 MG CHEWABLE TABLET PO (08:58)
[2025-05-05] MEDS: PRAVASTATIN SODIUM 10 MG TABLET BY MOUTH (08:59)
--- NOTE | 2025-05-05 10:22 | PCNWS ---
Weekly nutritional screen. Patient is tolerating current diet with adequate intake. No weight loss reported. No nutritional needs at this time.
[2025-05-05] MEDS: INSULIN ASPART (*BKC) 100 UNITS/ML SUB-Q ×3 (12:21→21:14)
[2025-05-05] MEDS: SENNA/DOCUSATE SODIUM TABLET 1 TAB PO (21:07)
[2025-05-05] MEDS: LEFLUNOMIDE 20 MG TABLET PO (21:08)
[2025-05-05] MEDS: PRAMIPEXOLE 0.5 MG TABLET PO (21:09)
[2025-05-05] MEDS: MIRTAZAPINE 7.5 MG TABLET PO (21:09)
[2025-05-06] VITALS (14 sets, daily range): BP systolic 134–142; BP diastolic 70–81; PULSE 73–94; RESP 16–20; TEMP 36.1–36.3; O2SAT 94–97
[2025-05-06] MEDS: IPRATROPIUM 0.5 MG/ALBUTEROL SULFATE 2.5 MG AMPUL.NEB 3 ML INHALATION ×3 (02:39→21:17)
[2025-05-06 06:21] LABS: Hematocrit 37.7 % (37.0-47.0); Hemoglobin 11.9 g/dL (12.0-15.0); Mean Corpuscular HGB Conc 31.6 g/dl (32-36); Mean Corpuscular Hemoglobin 28.5 pg (26-34); Mean Corpuscular Volume 90.2 fl (80-100); Platelet Count Result 307 k/mm3 (150-375); Red Blood Count 4.18 M/mm3 (4.2-5.4); White Blood Count 12.6 K/mm3 (4.5-10.0)
[2025-05-06 06:40] LABS: Alanine Aminotransferase 58 U/L (6-35); Albumin Level 3.4 g/dL (3.5-5.1); Alkaline Phosphatase 222 U/L (38-126); Anion Gap 3 mmol/L (4-12); Aspartate Amino Transferase 45 U/L (14-36); Bilirubin,Total 0.6 mg/dL (0.2-1.3); Blood Urea Nitrogen 27 mg/dL (7-17); Calcium 9.7 mg/dL (8.4-10.2); Carbon Dioxide 33 mmol/L (22-30); Chloride 98 mmol/L (98-107); Estimated CRCL calculation 49 ml/min; Estimated Glomerular Filt Rate > 60; Glucose 146 mg/dL (65-110); Magnesium 1.8 mg/dL (1.6-2.3); Potassium 3.5 mmol/L (3.4-5.0); Sodium 134 mmol/L (137-145); Total Protein 6.4 g/dL (6.3-8.2)
--- NOTE | 2025-05-06 08:09 | P.PNIM_ITS ---
Progress Note: A&P Assessment and Plan (1) Fall: Code(s): W19.XXXA - Unspecified fall, initial encounter Status: Acute Assessment and Plan: Patient with increasing generalized weakness at home had fall and was unable to get up on her own States lower extremity weakness has been progressing for past year and a half and now notes upper extremity weakness and constantly dropping items. Did report she was not wearing her chronic oxygen of 4 L at that time this could likely be secondary to hypoxia versus UTI * PT OT eval and treat * Pain management with norco and Voltaren cream BL knee/thigh pain HX OA with bilateral knee replacements * Neurology consulted for weakness In addition to the fall that brought her to the hospital she has increasing weakness in both lower limbs over last 1 year. MRI of the brain shows some white matter changes not sufficient to account for all the problems he is having. Suggest an MRI of the cervical, thoracic and lumbosacral spine and check her postvoid residual urine volume. If the study does not show any significant myelopathy she will require EMG nerve study of both lower limbs. - C spine MRI: Severe cervical spondylosis most notable for severe central canal and severe left and moderate right neural foraminal stenosis at C3-C4. Instrumented C5-C6 anterior spinal fusion. - T spine MRI: Moderate thoracic spondylosis. - L spine MRI: Severe lumbar spondylosis with severe central canal stenosis at L2-L3 and moderate to severe central canal stenosis at L3-L4 and L4-L5 despite posterior decompression with left hemilaminotomy superimposed of these levels. Patient awaiting a neurosurgery consult for severe cervical myelopathy. Dr. Renae to assess patient today. Sarai remains on hold for possible surgical intervention. SCD in place for DVT ppx. More recommendations to come following neurosurgery assessment. If plan for surgery during this hospitalization patient will likely require cardiac clearance in which case of consult would then be placed. Patient to follow up in neuro office for EMG nerve study outpatient. (2) UTI (urinary tract infection): Code(s): N39.0 - Urinary tract infection, site not specified Status: Acute Assessment and Plan: - UA concerning for infection - UC: pansensitive ecoli - no previous micro to be reviewed - started on rocephin, course completed during admission. Resolved. (3) Pneumonia: Code(s): J18.9 - Pneumonia, unspecified organism Status: Acute Assessment and Plan: CXR: Chronic apical infiltrates which may represent atypical pneumonia, fibrosis or scarring. Head/neck CTA: Multifocal pneumonia in the upper lungs. - Complicating Factors: COPD with chronic respiratory failure - started on CAP tx: started on doxycycline (patient on sotalol ovoid azithromycin due to QTC prolongation) and ceftriaxone on 04/30 transitioned to cefdinir and doxycycline, course completed - Prednisone 40mg due to wheezing and chronic COPD started on 05/01, course completed. No wheezing on exam. - Viral PCR: negative for Flu/COVID/RSV. MRSA negative. - remains on baseline supplemental O2 requirement of 3-4 L NC - Monitor vital signs, I&Os, neuro status and patient is a fall risk - Follow WBC, serum electrolytes, temperature curves and cultures Resolved. Patient remains at her baseline. (4) TIA (transient ischemic attack): Code(s): G45.9 - Transient cerebral ischemic attack, unspecified Status: Acute Assessment and Plan: On 04/30 patient with acute onset of confusion difficulty with fine motor skills per nursing staff upon my assessment patient's symptoms had resolved with previous history of TIA. CTA: 1. Age-related changes the brain with mild diffuse volume loss and moderate scattered white matter hypoattenuation consistent with chronic small vessel ischemic disease. No acute intracranial process or abnormally enhancing brain lesion. 2. 30% stenosis of the right carotid bulb and small amount of atherosclerotic plaque with 0% stenosis of the left carotid bulb 4. 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 MRI: 1. Normal aging brain with mild diffuse volume loss and moderate scattered mesenteric periventricular predominant white matter T2 hyperintensity consistent with chronic small vessel ischemic disease. No acute intracranial process. - started on ASA 81 mg and continue pravastatin 10 mg daily - Initiate stroke protocol, NIH Stroke Scale, neuro's q.4 hours - Monitor CBC, CMP, magnesium, troponin, and lipid profile - Monitor blood pressure, allow for permissive hypertension. - Telemetry monitoring - Monitor blood glucose - PT/OT eval and treat - Neurology consulted, appreciate assistance and recommendations Remains AOx3 with no noted neurological deficit. Patient to follow up in neurology office outpatient. (5) Chronic respiratory failure with hypoxia, on home oxygen therapy: Code(s): J96.11 - Chronic respiratory failure with hypoxia; Z99.81 - Dependence on supplemental oxygen Status: Acute Assessment and Plan: Secondary to COPD on 4L supplemental oxygen at home * Duonebs * prednisone 40mg daily, course completed * See above under PNA (6) Chronic obstructive pulmonary disease, unspecified: Code(s): J44.9 - Chronic obstructive pulmonary disease, unspecified Status: Acute Assessment and Plan: * On 4L supplemental oxygen at home * Duonebs * prednisone 40mg daily, course completed * See above under PNA (7) Acute hypokalemia: Code(s): E87.6 - Hypokalemia Status: Acute Assessment and Plan: K 3.0 on am labs, given 40 mg KCl PO * Repeat labs in the morning * Replenish as needed * Telemetry Resolved. (8) Hypomagnesemia: Code(s): E83.42 - Hypomagnesemia Status: Resolved Assessment and Plan: Magnesium level 1.5. * Replace with 2 g IV * Trend labs Resolved. (9) Hypercalcemia: Code(s): E83.52 - Hypercalcemia Status: Acute Assessment and Plan: Patient had a critical calcium of 12.7 likely secondary to rheumatoid arthritis however patient did state that she takes a vitamin D and multivitamin at home. * PTH WNL * Vitamin-D normal * TSH within normal * Vitamin A pending Has returned to WNL with IV fluids. (10) Fatty liver disease, nonalcoholic: Code(s): K76.0 - Fatty (change of) liver, not elsewhere classified Status: Acute Assessment and Plan: Patient with elevated liver enzymes. 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 States lower extremity weakness has been progressing for past year and a half and now notes upper extremity weakness and constantly dropping items. Patient is pleasant sitting up comfortably in her chair. She states that she has returned to her baseline shortness of breath. She has other complaints denying chest pain, palpitations, nausea/vomiting, no abdominal pain. Review of Systems Review of Systems: All systems reviewed & are unremarkable except as noted in HPI and below Exam Narrative: AF HR 83 RR 20 Spo2 94 3L NC baseline BP 139/81 General: female in no acute respiratory distress who is nontoxic appearing, sitting up in chair HEENT: Normocephalic. Atraumatic. Extraocular movement intact. Sclera clear and anicteric. No facial asymmetry. Chest: Lungs are clear to auscultation bilaterally. No wheezes or crackles. CV: Heart was regular rate and rhythm. Abd: Abdomen was soft. Nontender. Nondistended. Positive bowel sounds. Ext: No clubbing, cyanosis, or edema. DP pulses bilaterally. Neuro: Patient is alert and oriented x4. Strength symmetrical in the upper and lower extremities. Speech is clear. Objective Data Vital Signs Vital Signs: Vital Signs - 24 hr 05/05/25 08:57 05/05/25 08:58 05/05/25 09:00 Temperature Pulse Rate 68 68 Respiratory Rate Blood Pressure Pulse Oximetry 95 Oxygen Delivery Nasal Cannula Oxygen Flow Rate 3 05/05/25 14:00 05/05/25 15:21 05/05/25 15:21 Temperature 97.6 F Pulse Rate 93 85 85 Respiratory Rate 22 H 20 20 Blood Pressure 137/58 L Pulse Oximetry 95 96 Oxygen Delivery Nasal Cannula Oxygen Flow Rate 2 05/05/25 15:30 05/05/25 20:00 05/05/25 20:39 Temperature Pulse Rate 86 86 Respiratory Rate 20 20 Blood Pressure Pulse Oximetry 96 Oxygen Delivery Nasal Cannula Oxygen Flow Rate 3 05/05/25 20:42 05/05/25 20:54 05/05/25 21:08 Temperature Pulse Rate 84 94 Respiratory Rate 20 Blood Pressure Pulse Oximetry 95 Oxygen Delivery Nasal Cannula Oxygen Flow Rate 2 05/05/25 21:09 05/05/25 21:35 05/06/25 02:40 Temperature 97.2 F L Pulse Rate 94 99 86 Respiratory Rate 18 20 Blood Pressure 135/80 Pulse Oximetry 96 Oxygen Delivery Oxygen Flow Rate 05/06/25 02:48 05/06/25 05:13 Temperature 97.0 F L Pulse Rate 88 85 Respiratory Rate 20 18 Blood Pressure 139/81 Pulse Oximetry 97 Oxygen Delivery Oxygen Flow Rate Intake/Output Intake/Output: Intake & Output 05/03/25 05/04/25 05/05/25 05/06/25 23:59 23:59 23:59 23:59 Intake Total 1960 1420 780 440 Output Total 200 600 800 Balance 1760 820 -20 440 Meds/Results Medications: Active Medications Generic Name Dose Route Start Last Admin Trade Name Freq PRN Reason Stop Dose Admin Acetaminophen 650 mg 04/27/25 17:04 04/28/25 10:59 Acetaminophen 325 Mg Tablet PO 650 mg Q4H PRN Administration Mild Pain (1-3) or Fever Hydrocodone Bitart/Acetaminophen 1 tab 04/28/25 14:50 Hydrocodone/Acetaminophen (*Crx) 5-325 Mg Tablet PO Q4H PRN Pain Rated 4-6 Albuterol 2.5 mg 04/28/25 13:31 Albuterol Sulfate Neb 2.5 Mg/3 Ml Inh INHALATION Q6HRT PRN Wheezing Albuterol/Ipratropium 3 ml 05/01/25 08:00 05/06/25 02:39 Ipratropium 0.5 Mg/Albuterol Sulfate 2.5 Mg Ampul.Neb 3 Ml INHALATION 3 ml Q6HRT IVONE Administration Aspirin 81 mg 05/01/25 08:00 05/05/25 08:58 Aspirin 81 Mg Chewable Tablet PO 81 mg DAILY@0800 IVONE Administration Budesonide 0.5 mg 05/01/25 08:00 05/05/25 20:39 Budesonide Respule Neb 0.5 Mg/2 Ml Amp INHALATION 0.5 mg Q12HRT IVONE Administration Dextrose 12.5 gm 04/27/25 17:05 Dextrose 50% 25 Gm/50 Ml Syringe IV PUSH PRN PRN Hypoglycemia Protocol Diclofenac Sodium 1 applic 05/03/25 14:13 Diclofenac Sodium 1% 100 Gm Gel (*Bkc) TOPICAL QID PRN knee pain Furosemide 40 mg 04/28/25 09:00 05/05/25 08:58 Furosemide 40 Mg Tablet BY MOUTH 40 mg DAILY IVONE Administration Glucagon 1 mg 04/27/25 17:05 Glucagon For Inj 1 Mg Vial IM PRN PRN Hypoglycemia Protocol Glucose 15 gm 04/27/25 17:05 Glucose Oral Gel 15 Gm Of Glucse In 37.5 Gm Tube PO PRN PRN Hypoglycemia Protocol Guaifenesin 1,200 mg 05/01/25 09:00 05/05/25 21:07 Guaifenesin 12 Hr 600 Mg Tabcr PO 1,200 mg Q12HR IVONE Administration Dextrose 1,000 mls @ 100 mls/hr 04/27/25 17:05 Dextrose 5% 1,000 Ml IVPB PRN PRN Hypoglycemia Protocol Insulin Aspart 2 - 5 units 04/28/25 08:00 05/05/25 17:17 Insulin Aspart (*Bkc) 100 Units/Ml SUB-Q 4 units TIDWM IVONE Administration Protocol Insulin Aspart 1 - 2 units 04/27/25 21:00 05/05/25 21:14 Insulin Aspart (*Bkc) 100 Units/Ml SUB-Q 1 units HS IVONE Administration Protocol Leflunomide 20 mg 04/27/25 22:55 05/05/25 21:08 Leflunomide 20 Mg Tablet PO 20 mg HS IVONE Administration Melatonin 3 mg 05/03/25 11:07 05/04/25 21:34 Melatonin 3 Mg Tablet PO 3 mg HS PRN Administration Insomnia Metoprolol Tartrate 25 mg 04/27/25 22:30 05/05/25 21:08 Metoprolol Tartrate 25 Mg Tablet BY MOUTH 25 mg Q12HR IVONE Administration Mirtazapine 7.5 mg 04/27/25 23:00 05/05/25 21:09 Mirtazapine 7.5 Mg Tablet PO 7.5 mg QHS IVONE Administration Pantoprazole Sodium 40 mg 04/28/25 09:00 05/05/25 08:58 Pantoprazole 40 Mg Tablet PO 40 mg QAM IVONE Administration Pramipexole Dihydrochloride 0.5 mg 04/27/25 23:00 05/05/25 21:09 Pramipexole 0.5 Mg Tablet PO 0.5 mg HS IVONE Administration Pravastatin Sodium 10 mg 04/28/25 09:00 05/05/25 08:59 Pravastatin Sodium 10 Mg Tablet BY MOUTH 10 mg DAILY IVONE Administration Rivaroxaban 20 mg 04/28/25 17:00 05/04/25 17:17 Rivaroxaban 20 Mg Tablet BY MOUTH 20 mg On Hold: 05/05/25 16:32 DAILY@1700 IVONE Administration Senna/Docusate Sodium 1 tab 04/28/25 21:00 05/05/25 21:07 Senna/Docusate Sodium Tablet PO 1 tab HS IVONE Administration Sotalol HCl 80 mg 04/27/25 23:00 05/05/25 21:09 Sotalol Hcl 80 Mg Tablet PO 80 mg Q12HR IVONE Administration Radiology Results: ITS Impressions Chest X-Ray 04/27/25 13:28 IMPRESSION: 1: Chronic apical infiltrates which may represent atypical pneumonia, fibrosis or scarring. Head/Neck CTA 04/30/25 11:58 IMPRESSION: 1. Age-related changes the brain with mild diffuse volume loss and moderate scattered white matter hypoattenuation consistent with chronic small vessel ischemic disease. No acute intracranial process or abnormally enhancing brain lesion. 2. 30% stenosis of the right carotid bulb relative to normal distal artery lumen diameter (NASCET criteria). 3. Small amount of atherosclerotic plaque with 0% stenosis of the left carotid bulb relative to normal distal artery lumen diameter. 4. 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 5. Unremarkable cerebral CT angiogram with no thrombosis, hematoma significant stenosis or aneurysm. 6. Multifocal pneumonia in the upper lungs. Brain MRI 04/30/25 13:15 IMPRESSION: 1. Normal aging brain with mild diffuse volume loss and moderate scattered mesenteric periventricular predominant white matter T2 hyperintensity consistent with chronic small vessel ischemic disease. No acute intracranial process. Cervical Spine MRI 05/02/25 15:03 IMPRESSION: 1. Severe cervical spondylosis most notable for severe central canal and severe left and moderate right neural foraminal stenosis at C3-C4. 2. Instrumented C5-C6 anterior spinal fusion. Thoracic Spine MRI 05/02/25 15:28 IMPRESSION: 1. Moderate thoracic spondylosis. 2. Bilateral lung disease suspicious for pneumonia with small bilateral pleural effusions. Lumbar Spine MRI 05/02/25 15:42 IMPRESSION: 1. Severe lumbar spondylosis with severe central canal stenosis at L2-L3 and moderate to severe central canal stenosis at L3-L4 and L4-L5 despite posterior decompression with left hemilaminotomy superimposed of these levels. Labs Labs: Laboratory Results - last 24 hr 04/29/25 05/05/25 05/05/25 14:57 08:16 12:00 WBC RBC Hgb Hct MCV MCH MCHC RDW Plt Count MPV Sodium Potassium Chloride Carbon Dioxide Anion Gap BUN Creatinine Estim Creat Clear Calc Estimated GFR Glucose POC Capillary Glucose 97 209 H Calcium Magnesium Total Bilirubin AST ALT Alkaline Phosphatase Total Protein Albumin PTH Related Peptide <2.0 05/05/25 05/06/25 17:01 06:01 WBC 12.6 H RBC 4.18 L Hgb 11.9 L Hct 37.7 MCV 90.2 MCH 28.5 MCHC 31.6 L RDW 16.5 H Plt Count 307 MPV 11.8 H Sodium 134 L Potassium 3.5 Chloride 98 Carbon Dioxide 33 H Anion Gap 3 L BUN 27 H Creatinine 0.82 Estim Creat Clear Calc 49 Estimated GFR > 60 Glucose 146 H POC Capillary Glucose 323 H Calcium 9.7 Magnesium 1.8 Total Bilirubin 0.6 AST 45 H ALT 58 H Alkaline Phosphatase 222 H Total Protein 6.4 Albumin 3.4 L PTH Related Peptide Quality VTE Prophylaxis VTE prophylaxis: pharmacologic ordered
[2025-05-06] MEDS: BUDESONIDE RESPULE NEB 0.5 MG/2 ML AMP INHALATION ×2 (08:35→21:17)
[2025-05-06] MEDS: SOTALOL HCL 80 MG TABLET PO ×2 (09:52→21:28)
[2025-05-06] MEDS: ASPIRIN 81 MG CHEWABLE TABLET PO (09:53)
[2025-05-06] MEDS: guaiFENesin 12 HR 600 MG TABCR 1200 MG PO ×2 (09:53→21:28)
[2025-05-06] MEDS: METOPROLOL TARTRATE 25 MG TABLET BY MOUTH ×2 (09:53→21:28)
[2025-05-06] MEDS: PANTOPRAZOLE 40 MG TABLET PO (09:53)
[2025-05-06] MEDS: PRAVASTATIN SODIUM 10 MG TABLET BY MOUTH (09:53)
[2025-05-06] MEDS: FUROSEMIDE 40 MG TABLET BY MOUTH (09:54)
--- NOTE | 2025-05-06 15:30 | PCPTNOTE ---
The patient treatment was not able to be completed this afternoon due to patient receiving Neurosurgery Consult bed side. Will plan to continue treatment per plan of care.
--- NOTE | 2025-05-06 15:52 | P.CONNS_ITS ---
<Statement entered by Greg Renae M.D. - 06/07/25 22:37> This documentation has been reviewed and approved. she will follow up in my clinic as previously discussed in my office. ` Assessment and Plan Assessment and plan (1) Cervical stenosis of spine: Code(s): M48.02 - Spinal stenosis, cervical region Status: Acute Plan progressive weakness and numbness probably related to cervical and lumbar stenosis. options: agressive pt/ot inpatient and outpatient, possible inpatient rehab, surgery. we discussed post cerv dec/fusion with instrumentation and recovery. we discussed risks which are elevated given her multiple med problems such as, but not limited to: infxn, bldg, nerve and spinal cord injury, weakness, numbness, paralysis,pneum, dvt, pe, mi, postop vent, , neeed for further surgery. would possibly require another surgery to decompress lumbar nerve roots. was present for entire visit. she will follow up with me as previously discussed in my office. Consult date: 06/13/25 Time Seen: 15:52 HPI: Laura Clifford is a 75 year old female who presents with weakness. I saw her previously in my office. she continues to notice weakness and numbness in her arms and legs. she has been falling recently and had 2 falls in one week. she has some leakage of urine when she cannot get to the bathroom in a timely fashion. no fecal incontinence. Review of Systems 2 Review of Systems: she denies recent problems with fevers, chills, sweats, excess wt. change, unusual sob, continues to wear 4liters o2 at home. denies chest pain, abd pain, blood in the stool or urine. 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 Chronic respiratory failure with hypoxia, on home oxygen therapy Transient ischemic attack Chronic hyponatremia Venous insufficiency Iron deficiency anemia Polymyalgia rheumatica Small vessel disease, cerebrovascular Chronic anticoagulation Paroxysmal atrial fibrillation Coronary artery disease Microscopic colitis Chronic diarrhea Exocrine pancreatic insufficiency COVID-19 Cervical arthritis Pneumonia Dyslipidemia Essential hypertension Gastro-esophageal reflux disease without esophagitis Multifocal atrial tachycardia Surgical History Surgical History History of heart artery stent History of cardiac catheterization History of bilateral knee replacement History of bilateral carpal tunnel release History of colonoscopy with polypectomy History of coronary artery bypass graft x 2 (12/2013) History of Achilles tendon repair History of spinal surgery Lumbar micro discectomy infusion. History of mitral valve repair History of shoulder surgery History of cataract extraction Left History of hand surgery trigger finger, thumb Family History Family History Mother Cerebrovascular accident Family history of diabetes mellitus in first degree relative Family history of coronary artery disease Acute myocardial infarction Diabetes mellitus Father Carcinoma of colon Family history of lung cancer Family history of malignant neoplasm of esophagus Sibling Liver disease Liver transplant recipient Other Family history of malignant neoplasm of brain Family history of malignant neoplasm of stomach Social History Social History Social History: Surrogate medical decision maker: Filippo Clifford, spouse. Code status: Full code. Smoking status: Never smoker Second hand tobacco smoke exposure: Yes Alcohol intake: current Drinks per week: 1 Alcohol use details: Rare alcohol use in moderation. Substance use: never Substance use type: does not use Do You Feel Safe in your Home?: Yes Lack of Transportation: No Lack of Food: Never True Current Housing: I Have Housing Concerned About Future Housing: No Difficulty Paying Gas/Electric Bills: No Difficulty Paying for Meds: No Currently Unemployed: No Education: High School Diploma/GED Difficulty w/ Childcare or Family Care: No Living arrangements: with family Additional living arrangements comments: Lives in [facility]. Occupation/Education: retired Additional occupation/education comments: Worked in [employer]. Spiritual care concerns: No Meds Home Medications and Allergies Home Medications ?Medication ?Instructions ?Recorded ?Confirmed ?Type leflunomide 20 mg tablet 20 mg PO HS 07/04/19 5 History omega 6-zik-ttw-fish oil 100 2 cap PO .q12hr 06/12/23 04/27/25 History mg-160 mg-1,000 mg capsule (Fish Oil) arformoterol 15 mcg/2 mL solution See Rx Instructions .Route 06/16/24 04/27/25 Rx for nebulization .COMPLEX #30 ea evolocumab 140 mg/mL subcutaneous 140 mg subcut .every 2 weeks #2 mL 11/10/24 04/27/25 Rx pen injector (Angelika Freeman) metoprolol tartrate 25 mg tablet See Rx Instructions . Route 01/05/25 04/27/25 Rx .COMPLEX #180 tabs rivaroxaban 20 mg tablet (Xarelto) See Rx Instructions .Route 01/10/25 04/27/25 Rx .COMPLEX #30 tabs albuterol sulfate 90 mcg/actuation 2 inh inhalation Q6 H PRN shortness 02/06/25 04/27/25 Rx aerosol inhaler of breath or wheezing #8.5 g miguel furosemide 40 mg tablet See Rx Instructions .Route 0 02/13/25 04/27/25 Rx .COMPLEX #90 tabs mirtazapine 7.5 mg tablet 7.5 mg PO QHS #30 tabs 03/0104/27/25 Rx pravastatin 10 mg tablet See Rx Instructions .Route 0 03/07/25 04/27/25 Rx .COMPLEX #90 tabs tirzepatide 5 mg/0.5 mL 5 mg (0.5 mL) subcut WEEKLY #2 mL 03/12/25 04/27/25 Rx subcutaneous pen injector pramipexole 0.5 mg tablet 0.5 mg PO HS #90 tabs 04/27/25 Rx pantoprazole 40 mg tablet,delayed 40 mg PO QAM #90 tab s 04/02/25 04/27/25 Rx release potassium chloride 10 mEq oral 10 meq PO DAILY #30 ea 04/17/25 04/27/25 Rx packet (Pokonza) sotalol 80 mg tablet 80 mg PO Q12H 04/27/2504/27 History diphenoxylate-atropine 2.5 1 tablet PO TID PRN diarrhe a #20 05/22/25 Rx mg-0.025 mg tablet (Lomotil) tabs metformin 500 mg tablet,extended 1,000 mg (2 x 500 mg) PO QPM #90 05/22/25 Rx release 24 hr tabs Allergies Allergy/AdvReac Type Severity Reaction Status Date / Time ciprofloxacin Allergy Mild Unknown Verified 06/05/25 16:43 codeine Allergy Mild Vomiting Verified 06/05/25 16:43 levofloxacin Allergy Unknown Unknown Verified 06/05/25 16:43 lisinopril Allergy Unknown Unknown Verified 06/05/25 16:43 amoxicillin (From Augmentin) AdvReac Severe Confusion Verified 06/05/25 16:43 clavulanic acid (From AdvReac Severe Confusion Verified 06/05/25 16:43 Augmentin) tramadol AdvReac Mild Vomiting Verified 06/05/25 16:43 Vital Signs Vital Signs - 24 hr 05/05/25 20:00 05/05/25 20:39 05/05/25 20:42 Temperature Pulse Rate 86 Respiratory Rate 20 Blood Pressure Pulse Oximetry 96 95 Oxygen Delivery Nasal Cannula Nasal Cannula Oxygen Flow Rate 3 2 05/05/25 20:54 05/05/25 21:08 05/05/25 21:09 Temperature Pulse Rate 84 94 94 Respiratory Rate 20 Blood Pressure Pulse Oximetry Oxygen Delivery Oxygen Flow Rate 05/05/25 21:35 05/06/25 02:40 05/06/25 02:48 Temperature 36.2 C L Pulse Rate 99 86 88 Respiratory Rate 18 20 20 Blood Pressure 135/80 Pulse Oximetry 96 Oxygen Delivery Oxygen Flow Rate 05/06/25 05:13 05/06/25 08:35 05/06/25 08:40 Temperature 36.1 C L Pulse Rate 85 73 73 Respiratory Rate 18 20 20 Blood Pressure 139/81 Pulse Oximetry 97 94 Oxygen Delivery Nasal Cannula Oxygen Flow Rate 2 05/06/25 08:43 05/06/25 08:50 05/06/25 09:52 Temperature Pulse Rate 78 83 Respiratory Rate 20 Blood Pressure Pulse Oximetry 94 Oxygen Delivery Nasal Cannula Oxygen Flow Rate 3 05/06/25 09:53 05/06/25 14:00 Temperature 36.2 C L Pulse Rate 83 73 Respiratory Rate 18 Blood Pressure 142/75 H Pulse Oximetry 96 Oxygen Delivery Oxygen Flow Rate Exam 2 Const: General: comfortable and no acute distress Eyes: Pupils: Equal, round and reactive pupils present EOM: EOMs intact bilaterally Neck: Neck: supple Resp: Auscultation: clear to auscultation bilaterally Cardio: Rhythm: abnormal rhythm GI: GI Palp: Yes Soft to palpation Skin: General skin exam: normal color Neuro: Deep tendon reflexes (DTR's): Right triceps reflex intensity grade: 1+, Left triceps reflex intensity grade: 1+, Rt Biceps (C5, C6): 1+, Left biceps reflex intensity grade: 1+, Right brachioradialis reflex intensity grade: 1+, Left brachioradialis reflex intensity grade: 1+, Right patellar reflex intensity grade: 1+, Left patellar reflex intensity grade: 1+, Right ankle reflex intensity grade: 1+ and Left ankle reflex intensity grade: 0 Plantar Reflex Responses: equivocal: right, left and bilateral Other: gait steady with a walker Psych: Mental Status: mental status grossly normal Affect: normal affect Attitude: cooperative Results Labs 05/08/25 08:03 05/08/25 08:03 Labs: Short CBC 05/06/25 Range/Units 06:01 WBC 12.6 H (4.5-10.0) K/mm3 Hgb 11.9 L (12.0-15.0) g/dL Hct 37.7 (37.0-47.0) % Plt Count 307 (150-375) k/mm3 BMP 05/06/25 06:01 Sodium 134 L Potassium 3.5 Chloride 98 Carbon Dioxide 33 H BUN 27 H Creatinine 0.82 Glucose 146 H Calcium 9.7 Liver Function 05/06/25 Range/Units 06:01 Total Bilirubin 0.6 (0.2-1.3) mg/dL AST 45 H (14-36) U/L ALT 58 H (6-35) U/L Alkaline Phosphatase 222 H (38-126) U/L Albumin 3.4 L (3.5-5.1) g/dL Imaging My impression: mri of brain and total spine reviewed. microvasc changes in both cerebral hemispheres. postop acdf. severe canal stenosis c3-5. lordosis preserved. multilevel thoracic ddd. severe lumb degen dz with mod-severe stenosis l3-5 with posotp change from prior unilateral lamis. Attestation Supervising Provider Attestation i agree with assessment and plan. she will follow up with me as previously discussed in my office.
[2025-05-06] MEDS: INSULIN ASPART (*BKC) 100 UNITS/ML SUB-Q (17:24)
[2025-05-06] MEDS: MIRTAZAPINE 7.5 MG TABLET PO (21:28)
[2025-05-06] MEDS: PRAMIPEXOLE 0.5 MG TABLET PO (21:28)
[2025-05-06] MEDS: SENNA/DOCUSATE SODIUM TABLET 1 TAB PO (21:28)
[2025-05-06] MEDS: LEFLUNOMIDE 20 MG TABLET PO (21:28)
[2025-05-07] VITALS (12 sets, daily range): BP systolic 106–141; BP diastolic 62–66; PULSE 77–105; RESP 16–20; TEMP 36.1–37; O2SAT 93–100
[2025-05-07] MEDS: IPRATROPIUM 0.5 MG/ALBUTEROL SULFATE 2.5 MG AMPUL.NEB 3 ML INHALATION ×3 (02:06→14:09)
[2025-05-07 05:54] LABS: Hematocrit 35.2 % (37.0-47.0); Hemoglobin 11.1 g/dL (12.0-15.0); Mean Corpuscular HGB Conc 31.5 g/dl (32-36); Mean Corpuscular Hemoglobin 28.8 pg (26-34); Mean Corpuscular Volume 91.4 fl (80-100); Platelet Count Result 238 k/mm3 (150-375); Red Blood Count 3.85 M/mm3 (4.2-5.4); White Blood Count 9.9 K/mm3 (4.5-10.0)
[2025-05-07 06:06] LABS: Alanine Aminotransferase 50 U/L (6-35); Albumin Level 3.1 g/dL (3.5-5.1); Alkaline Phosphatase 187 U/L (38-126); Anion Gap 1 mmol/L (4-12); Aspartate Amino Transferase 42 U/L (14-36); Bilirubin,Total 0.6 mg/dL (0.2-1.3); Blood Urea Nitrogen 27 mg/dL (7-17); Calcium 9.2 mg/dL (8.4-10.2); Carbon Dioxide 32 mmol/L (22-30); Chloride 98 mmol/L (98-107); Estimated CRCL calculation 49 ml/min; Estimated Glomerular Filt Rate > 60; Glucose 117 mg/dL (65-110); Magnesium 1.7 mg/dL (1.6-2.3); Potassium 3.4 mmol/L (3.4-5.0); Sodium 131 mmol/L (137-145); Total Protein 5.6 g/dL (6.3-8.2)
--- NOTE | 2025-05-07 07:02 | P.PNIM_ITS ---
Progress Note: A&P Assessment and Plan (1) Cervical stenosis of spine: Code(s): M48.02 - Spinal stenosis, cervical region Status: Acute Assessment and Plan: - C spine MRI: Severe cervical spondylosis most notable for severe central canal and severe left and moderate right neural foraminal stenosis at C3-C4. Instrumented C5-C6 anterior spinal fusion. - T spine MRI: Moderate thoracic spondylosis. - L spine MRI: Severe lumbar spondylosis with severe central canal stenosis at L2-L3 and moderate to severe central canal stenosis at L3-L4 and L4-L5 despite posterior decompression with left hemilaminotomy superimposed of these levels. Patient evaluated by neurosurgery Dr. Renae Patient wishes to proceed with surgery at this time, discussed with Dr. Renae who states patient to remain inpatient for surgery and he will discuss the case with colleagues and try to get patient placed on OR board Xarelto remains on hold for surgical intervention. SCD in place for DVT ppx. Patient requires cardiac clearance, cardiology consulted Per Dr. Renae recommendations will obtain a CT c spine w/o and a XR c spine with flexion/extension (2) Fall: Code(s): W19.XXXA - Unspecified fall, initial encounter Status: Acute Assessment and Plan: Patient with increasing generalized weakness at home had fall and was unable to get up on her own States lower extremity weakness has been progressing for past year and a half and now notes upper extremity weakness and constantly dropping items. Did report she was not wearing her chronic oxygen of 4 L at that time this could likely be secondary to hypoxia versus UTI * PT OT eval and treat * Pain management with norco and Voltaren cream BL knee/thigh pain HX OA with bilateral knee replacements * Neurology consulted for weakness In addition to the fall that brought her to the hospital she has increasing weakness in both lower limbs over last 1 year. MRI of the brain shows some white matter changes not sufficient to account for all the problems he is having. Suggest an MRI of the cervical, thoracic and lumbosacral spine and check her postvoid residual urine volume. See plan above. (3) UTI (urinary tract infection): Code(s): N39.0 - Urinary tract infection, site not specified Status: Acute Assessment and Plan: - UA concerning for infection - UC: pansensitive ecoli - no previous micro to be reviewed - started on rocephin, course completed during admission. Resolved. (4) Pneumonia: Code(s): J18.9 - Pneumonia, unspecified organism Status: Acute Assessment and Plan: CXR: Chronic apical infiltrates which may represent atypical pneumonia, fibrosis or scarring. Head/neck CTA: Multifocal pneumonia in the upper lungs. - Complicating Factors: COPD with chronic respiratory failure - started on CAP tx: started on doxycycline (patient on sotalol ovoid azithromycin due to QTC prolongation) and ceftriaxone on 04/30 transitioned to cefdinir and doxycycline, course completed - Prednisone 40mg due to wheezing and chronic COPD started on 05/01, course completed. No wheezing on exam. - Viral PCR: negative for Flu/COVID/RSV. MRSA negative. - remains on baseline supplemental O2 requirement of 3-4 L NC - Monitor vital signs, I&Os, neuro status and patient is a fall risk - Follow WBC, serum electrolytes, temperature curves and cultures Resolved. Patient remains at her baseline. (5) TIA (transient ischemic attack): Code(s): G45.9 - Transient cerebral ischemic attack, unspecified Status: Acute Assessment and Plan: On 04/30 patient with acute onset of confusion difficulty with fine motor skills per nursing staff upon my assessment patient's symptoms had resolved with previous history of TIA. CTA: 1. Age-related changes the brain with mild diffuse volume loss and moderate scattered white matter hypoattenuation consistent with chronic small vessel ischemic disease. No acute intracranial process or abnormally enhancing brain lesion. 2. 30% stenosis of the right carotid bulb and small amount of atherosclerotic plaque with 0% stenosis of the left carotid bulb 4. 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 MRI: 1. Normal aging brain with mild diffuse volume loss and moderate scattered mesenteric periventricular predominant white matter T2 hyperintensity consistent with chronic small vessel ischemic disease. No acute intracranial process. - started on ASA 81 mg and continue pravastatin 10 mg daily - Initiate stroke protocol, NIH Stroke Scale, neuro's q.4 hours - Monitor CBC, CMP, magnesium, troponin, and lipid profile - Monitor blood pressure, allow for permissive hypertension. - Telemetry monitoring - Monitor blood glucose - PT/OT eval and treat - Neurology consulted, appreciate assistance and recommendations Remains AOx3 with no noted neurological deficit. Patient to follow up in neurology office outpatient. (6) Chronic respiratory failure with hypoxia, on home oxygen therapy: Code(s): J96.11 - Chronic respiratory failure with hypoxia; Z99.81 - Dependence on supplemental oxygen Status: Acute Assessment and Plan: Secondary to COPD on 4L supplemental oxygen at home * Duonebs * prednisone 40mg daily, course completed * See above under PNA (7) Chronic obstructive pulmonary disease, unspecified: Code(s): J44.9 - Chronic obstructive pulmonary disease, unspecified Status: Acute Assessment and Plan: * On 4L supplemental oxygen at home * Duonebs * prednisone 40mg daily, course completed * See above under PNA (8) Acute hypokalemia: Code(s): E87.6 - Hypokalemia Status: Acute Assessment and Plan: K 3.0 on am labs, given 40 mg KCl PO * Repeat labs in the morning * Replenish as needed * Telemetry Resolved. (9) Hypomagnesemia: Code(s): E83.42 - Hypomagnesemia Status: Resolved Assessment and Plan: Magnesium level 1.5. * Replace with 2 g IV * Trend labs Resolved. (10) Hypercalcemia: Code(s): E83.52 - Hypercalcemia Status: Acute Assessment and Plan: Patient had a critical calcium of 12.7 likely secondary to rheumatoid arthritis however patient did state that she takes a vitamin D and multivitamin at home. * PTH WNL * Vitamin-D normal * TSH within normal * Vitamin A pending Has returned to WNL with IV fluids. (11) Fatty liver disease, nonalcoholic: Code(s): K76.0 - Fatty (change of) liver, not elsewhere classified Status: Acute Assessment and Plan: Patient with elevated liver enzymes. 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 States lower extremity weakness has been progressing for past year and a half and now notes upper extremity weakness and constantly dropping items. Patient is pleasant sitting up comfortably in her chair with family at bedside. Patient has no complaints at this time denying chest pain, shortness for breath, palpitations, nausea/vomiting, abdominal pain, and dizziness/lightheadedness. Patient was evaluated by Neurosurgery yesterday and after discussion with family did decide that she wishes to proceed with surgery at this time. Call made to Dr. Renae who states patient is remained inpatient and he will discuss with colleagues about the case and have patient had a to the OR list. Review of Systems Review of Systems: All systems reviewed & are unremarkable except as noted in HPI and below Exam Narrative: AF HR 88 RR 20 SpO2 93 3L NC (baseline) BP 141/64 General: female in no acute respiratory distress who is nontoxic appearing, sitting up in chair HEENT: Normocephalic. Atraumatic. Extraocular movement intact. Sclera clear and anicteric. No facial asymmetry. Chest: Lungs are clear to auscultation bilaterally. No wheezes or crackles. CV: Heart was regular rate and rhythm. Abd: Abdomen was soft. Nontender. Nondistended. Positive bowel sounds. Ext: No clubbing, cyanosis, or edema. DP pulses bilaterally. Neuro: Patient is alert and oriented x4. Strength symmetrical in the upper and lower extremities. Sensation intact. Speech is clear. Objective Data Vital Signs Vital Signs: Vital Signs - 24 hr 05/06/25 08:35 05/06/25 08:40 05/06/25 08:43 Temperature Pulse Rate 73 73 78 Respiratory Rate 20 20 20 Blood Pressure Pulse Oximetry 94 Oxygen Delivery Nasal Cannula Oxygen Flow Rate 2 Fraction of Inspired Oxygen 05/06/25 08:50 05/06/25 09:52 05/06/25 09:53 Temperature Pulse Rate 83 83 Respiratory Rate Blood Pressure Pulse Oximetry 94 Oxygen Delivery Nasal Cannula Oxygen Flow Rate 3 Fraction of Inspired Oxygen 05/06/25 14:00 05/06/25 20:00 05/06/25 21:17 Temperature 97.2 F L Pulse Rate 73 93 Respiratory Rate 18 20 Blood Pressure 142/75 H Pulse Oximetry 96 95 Oxygen Delivery Nasal Cannula Oxygen Flow Rate 3 Fraction of Inspired Oxygen 05/06/25 21:19 05/06/25 22:14 05/07/25 02:06 Temperature 97.4 F L Pulse Rate 93 94 88 Respiratory Rate 20 16 20 Blood Pressure 134/70 Pulse Oximetry 97 95 Oxygen Delivery Nasal Cannula Oxygen Flow Rate 2 Fraction of Inspired Oxygen 28 05/07/25 05:13 Temperature 97.0 F L Pulse Rate 86 Respiratory Rate 16 Blood Pressure 141/64 H Pulse Oximetry 93 Oxygen Delivery Oxygen Flow Rate Fraction of Inspired Oxygen Intake/Output Intake/Output: Intake & Output 05/04/25 05/05/25 05/06/25 05/07/25 23:59 23:59 23:59 23:59 Intake Total 2712 464 5493 600 Output Total 600 800 400 Balance 820 -20 1160 200 Meds/Results Medications: Active Medications Generic Name Dose Route Start Last Admin Trade Name Freq PRN Reason Stop Dose Admin Acetaminophen 650 mg 04/27/25 17:04 04/28/25 10:59 Acetaminophen 325 Mg Tablet PO 650 mg Q4H PRN Administration Mild Pain (1-3) or Fever Hydrocodone Bitart/Acetaminophen 1 tab 04/28/25 14:50 Hydrocodone/Acetaminophen (*Crx) 5-325 Mg Tablet PO Q4H PRN Pain Rated 4-6 Albuterol 2.5 mg 04/28/25 13:31 Albuterol Sulfate Neb 2.5 Mg/3 Ml Inh INHALATION Q6HRT PRN Wheezing Albuterol/Ipratropium 3 ml 05/01/25 08:00 05/07/25 02:06 Ipratropium 0.5 Mg/Albuterol Sulfate 2.5 Mg Ampul.Neb 3 Ml INHALATION 3 ml Q6HRT IVONE Administration Aspirin 81 mg 05/01/25 08:00 05/06/25 09:53 Aspirin 81 Mg Chewable Tablet PO 81 mg DAILY@0800 IVONE Administration Budesonide 0.5 mg 05/01/25 08:00 05/06/25 21:17 Budesonide Respule Neb 0.5 Mg/2 Ml Amp INHALATION 0.5 mg Q12HRT IVONE Administration Dextrose 12.5 gm 04/27/25 17:05 Dextrose 50% 25 Gm/50 Ml Syringe IV PUSH PRN PRN Hypoglycemia Protocol Diclofenac Sodium 1 applic 05/03/25 14:13 Diclofenac Sodium 1% 100 Gm Gel (*Bkc) TOPICAL QID PRN knee pain Furosemide 40 mg 04/28/25 09:00 05/06/25 09:54 Furosemide 40 Mg Tablet BY MOUTH 40 mg DAILY IVONE Administration Glucagon 1 mg 04/27/25 17:05 Glucagon For Inj 1 Mg Vial IM PRN PRN Hypoglycemia Protocol Glucose 15 gm 04/27/25 17:05 Glucose Oral Gel 15 Gm Of Glucse In 37.5 Gm Tube PO PRN PRN Hypoglycemia Protocol Guaifenesin 1,200 mg 05/01/25 09:00 05/06/25 21:28 Guaifenesin 12 Hr 600 Mg Tabcr PO 1,200 mg Q12HR IVONE Administration Dextrose 1,000 mls @ 100 mls/hr 04/27/25 17:05 Dextrose 5% 1,000 Ml IVPB PRN PRN Hypoglycemia Protocol Insulin Aspart 2 - 5 units 04/28/25 08:00 05/06/25 17:24 Insulin Aspart (*Bkc) 100 Units/Ml SUB-Q 2 units TIDWM IVONE Administration Protocol Insulin Aspart 1 - 2 units 04/27/25 21:00 05/06/25 21:26 Insulin Aspart (*Bkc) 100 Units/Ml SUB-Q Not Given HS IVONE Protocol Leflunomide 20 mg 04/27/25 22:55 05/06/25 21:28 Leflunomide 20 Mg Tablet PO 20 mg HS IVONE Administration Melatonin 3 mg 05/03/25 11:07 05/04/25 21:34 Melatonin 3 Mg Tablet PO 3 mg HS PRN Administration Insomnia Metoprolol Tartrate 25 mg 04/27/25 22:30 05/06/25 21:28 Metoprolol Tartrate 25 Mg Tablet BY MOUTH 25 mg Q12HR IVONE Administration Mirtazapine 7.5 mg 04/27/25 23:00 05/06/25 21:28 Mirtazapine 7.5 Mg Tablet PO 7.5 mg QHS IVONE Administration Pantoprazole Sodium 40 mg 04/28/25 09:00 05/06/25 09:53 Pantoprazole 40 Mg Tablet PO 40 mg QAM IVONE Administration Pramipexole Dihydrochloride 0.5 mg 04/27/25 23:00 05/06/25 21:28 Pramipexole 0.5 Mg Tablet PO 0.5 mg HS IVONE Administration Pravastatin Sodium 10 mg 04/28/25 09:00 05/06/25 09:53 Pravastatin Sodium 10 Mg Tablet BY MOUTH 10 mg DAILY IVONE Administration Rivaroxaban 20 mg 04/28/25 17:00 05/04/25 17:17 Rivaroxaban 20 Mg Tablet BY MOUTH 20 mg On Hold: 05/05/25 16:32 DAILY@1700 IVONE Administration Senna/Docusate Sodium 1 tab 04/28/25 21:00 05/06/25 21:28 Senna/Docusate Sodium Tablet PO 1 tab HS IVONE Administration Sotalol HCl 80 mg 04/27/25 23:00 05/06/25 21:28 Sotalol Hcl 80 Mg Tablet PO 80 mg Q12HR IVONE Administration Radiology Results: ITS Impressions Chest X-Ray 04/27/25 13:28 IMPRESSION: 1: Chronic apical infiltrates which may represent atypical pneumonia, fibrosis or scarring. Head/Neck CTA 04/30/25 11:58 IMPRESSION: 1. Age-related changes the brain with mild diffuse volume loss and moderate scattered white matter hypoattenuation consistent with chronic small vessel ischemic disease. No acute intracranial process or abnormally enhancing brain lesion. 2. 30% stenosis of the right carotid bulb relative to normal distal artery lumen diameter (NASCET criteria). 3. Small amount of atherosclerotic plaque with 0% stenosis of the left carotid bulb relative to normal distal artery lumen diameter. 4. 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 5. Unremarkable cerebral CT angiogram with no thrombosis, hematoma significant stenosis or aneurysm. 6. Multifocal pneumonia in the upper lungs. Brain MRI 04/30/25 13:15 IMPRESSION: 1. Normal aging brain with mild diffuse volume loss and moderate scattered mesenteric periventricular predominant white matter T2 hyperintensity consistent with chronic small vessel ischemic disease. No acute intracranial process. Cervical Spine MRI 05/02/25 15:03 IMPRESSION: 1. Severe cervical spondylosis most notable for severe central canal and severe left and moderate right neural foraminal stenosis at C3-C4. 2. Instrumented C5-C6 anterior spinal fusion. Thoracic Spine MRI 05/02/25 15:28 IMPRESSION: 1. Moderate thoracic spondylosis. 2. Bilateral lung disease suspicious for pneumonia with small bilateral pleural effusions. Lumbar Spine MRI 05/02/25 15:42 IMPRESSION: 1. Severe lumbar spondylosis with severe central canal stenosis at L2-L3 and moderate to severe central canal stenosis at L3-L4 and L4-L5 despite posterior decompression with left hemilaminotomy superimposed of these levels. Labs Labs: Laboratory Results - last 24 hr 04/28/25 05/05/25 05/06/25 05:40 20:33 08:04 WBC RBC Hgb Hct MCV MCH MCHC RDW Plt Count MPV Sodium Potassium Chloride Carbon Dioxide Anion Gap BUN Creatinine Estim Creat Clear Calc Estimated GFR Glucose POC Capillary Glucose 251 H 123 H Calcium Magnesium Total Bilirubin AST ALT Alkaline Phosphatase Total Protein Albumin Vitamin A 35.7 05/06/25 05/06/25 05/06/25 12:08 16:52 20:02 WBC RBC Hgb Hct MCV MCH MCHC RDW Plt Count MPV Sodium Potassium Chloride Carbon Dioxide Anion Gap BUN Creatinine Estim Creat Clear Calc Estimated GFR Glucose POC Capillary Glucose 140 H 201 H 177 H Calcium Magnesium Total Bilirubin AST ALT Alkaline Phosphatase Total Protein Albumin Vitamin A 05/07/25 05:39 WBC 9.9 RBC 3.85 L Hgb 11.1 L Hct 35.2 L MCV 91.4 MCH 28.8 MCHC 31.5 L RDW 17.1 H Plt Count 238 MPV 11.6 H Sodium 131 L Potassium 3.4 Chloride 98 Carbon Dioxide 32 H Anion Gap 1 L BUN 27 H Creatinine 0.82 Estim Creat Clear Calc 49 Estimated GFR > 60 Glucose 117 H POC Capillary Glucose Calcium 9.2 Magnesium 1.7 Total Bilirubin 0.6 AST 42 H ALT 50 H Alkaline Phosphatase 187 H Total Protein 5.6 L Albumin 3.1 L Vitamin A Quality VTE Prophylaxis VTE prophylaxis: pharmacologic ordered
[2025-05-07] MEDS: BUDESONIDE RESPULE NEB 0.5 MG/2 ML AMP INHALATION ×2 (07:18→21:05)
[2025-05-07] MEDS: guaiFENesin 12 HR 600 MG TABCR 1200 MG PO ×2 (09:11→20:51)
[2025-05-07] MEDS: PRAVASTATIN SODIUM 10 MG TABLET BY MOUTH (09:11)
[2025-05-07] MEDS: SOTALOL HCL 80 MG TABLET PO ×2 (09:11→20:50)
[2025-05-07] MEDS: FUROSEMIDE 40 MG TABLET BY MOUTH (09:11)
[2025-05-07] MEDS: ASPIRIN 81 MG CHEWABLE TABLET PO (09:11)
[2025-05-07] MEDS: PANTOPRAZOLE 40 MG TABLET PO (09:11)
[2025-05-07] MEDS: METOPROLOL TARTRATE 25 MG TABLET BY MOUTH ×2 (09:14→20:50)
[2025-05-07] MEDS: INSULIN ASPART (*BKC) 100 UNITS/ML SUB-Q ×2 (12:44→20:48)
[2025-05-07] MEDS: LEFLUNOMIDE 20 MG TABLET PO (20:48)
[2025-05-07] MEDS: PRAMIPEXOLE 0.5 MG TABLET PO (20:48)
[2025-05-07] MEDS: MIRTAZAPINE 7.5 MG TABLET PO (20:50)
[2025-05-07] MEDS: SENNA/DOCUSATE SODIUM TABLET 1 TAB PO (20:50)
[2025-05-07] MEDS: MELATONIN 3 MG TABLET PO (20:51)
[2025-05-08] VITALS (7 sets, daily range): BP systolic 124; BP diastolic 57–77; PULSE 72–98; RESP 18–24; TEMP 36.9–37.1; O2SAT 94–100
--- NOTE | 2025-05-08 07:48 | P.PNIM_ITS ---
Progress Note: A&P Assessment and Plan (1) Cervical stenosis of spine: Code(s): M48.02 - Spinal stenosis, cervical region Status: Acute Assessment and Plan: - C spine MRI: Severe cervical spondylosis most notable for severe central canal and severe left and moderate right neural foraminal stenosis at C3-C4. Instrumented C5-C6 anterior spinal fusion. - T spine MRI: Moderate thoracic spondylosis. - L spine MRI: Severe lumbar spondylosis with severe central canal stenosis at L2-L3 and moderate to severe central canal stenosis at L3-L4 and L4-L5 despite posterior decompression with left hemilaminotomy superimposed of these levels. - CT c spine: Severe cervical spondylosis with instrumented C5-C6 anterior spinal fusion. - C spine XR: Severe cervical spondylosis with C5-6 instrumented anterior spinal fusion. Cervical hypomobility with flexion and extension but no spondylolisthesis or abnormal translatory motion Patient evaluated by neurosurgery Dr. Renae Patient wishes to proceed with surgery at this time, previously discussed with Dr. Renae who states patient to remain inpatient for surgery and he will discuss the case with colleagues and try to get patient placed on OR board Xarelto remains on hold for surgical intervention. SCD in place for DVT ppx. Patient requires cardiac clearance, cardiology consulted Asymptomatic from cardiac standpoint. Nuclear stress test under 3 years ago. Low cardiac risk. May proceed to cervical nerve surgery without further cardiac workup. May hold Xarelto for 3 days prior to surgery. (2) Fall: Code(s): W19.XXXA - Unspecified fall, initial encounter Status: Acute Assessment and Plan: Patient with increasing generalized weakness at home had fall and was unable to get up on her own States lower extremity weakness has been progressing for past year and a half and now notes upper extremity weakness and constantly dropping items. Did report she was not wearing her chronic oxygen of 4 L at that time this could likely be secondary to hypoxia versus UTI * PT OT eval and treat * Pain management with norco and Voltaren cream BL knee/thigh pain HX OA with bilateral knee replacements * Neurology consulted for weakness In addition to the fall that brought her to the hospital she has increasing weakness in both lower limbs over last 1 year. MRI of the brain shows some white matter changes not sufficient to account for all the problems he is having. Suggest an MRI of the cervical, thoracic and lumbosacral spine and check her postvoid residual urine volume. See plan above. (3) UTI (urinary tract infection): Code(s): N39.0 - Urinary tract infection, site not specified Status: Acute Assessment and Plan: - UA concerning for infection - UC: pansensitive ecoli - no previous micro to be reviewed - started on rocephin, course completed during admission. Resolved. Denies any UTI like symptoms. (4) Pneumonia: Code(s): J18.9 - Pneumonia, unspecified organism Status: Acute Assessment and Plan: CXR: Chronic apical infiltrates which may represent atypical pneumonia, fibrosis or scarring. Head/neck CTA: Multifocal pneumonia in the upper lungs. - Complicating Factors: COPD with chronic respiratory failure - started on CAP tx: started on doxycycline (patient on sotalol ovoid azithromycin due to QTC prolongation) and ceftriaxone on 04/30 transitioned to cefdinir and doxycycline, course completed - Prednisone 40mg due to wheezing and chronic COPD started on 05/01, course completed. No wheezing on exam. - Viral PCR: negative for Flu/COVID/RSV. MRSA negative. - remains on baseline supplemental O2 requirement of 3-4 L NC - Monitor vital signs, I&Os, neuro status and patient is a fall risk - Follow WBC, serum electrolytes, temperature curves and cultures C spine CT showing prominent tree-in-bud opacities in the visualized bilateral upper lung zones consistent with pneumonia. Patient completed antibiotic course for pneumonia. She denies any shortness of breath or cough. WBC remains WNL and she is afebrile. (5) TIA (transient ischemic attack): Code(s): G45.9 - Transient cerebral ischemic attack, unspecified Status: Acute Assessment and Plan: On 04/30 patient with acute onset of confusion difficulty with fine motor skills per nursing staff upon my assessment patient's symptoms had resolved with previous history of TIA. CTA: 1. Age-related changes the brain with mild diffuse volume loss and moderate scattered white matter hypoattenuation consistent with chronic small vessel ischemic disease. No acute intracranial process or abnormally enhancing brain lesion. 2. 30% stenosis of the right carotid bulb and small amount of atherosclerotic plaque with 0% stenosis of the left carotid bulb 4. 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 MRI: 1. Normal aging brain with mild diffuse volume loss and moderate scattered mesenteric periventricular predominant white matter T2 hyperintensity consistent with chronic small vessel ischemic disease. No acute intracranial process. - started on ASA 81 mg and continue pravastatin 10 mg daily - Initiate stroke protocol, NIH Stroke Scale, neuro's q.4 hours - Monitor CBC, CMP, magnesium, troponin, and lipid profile - Monitor blood pressure, allow for permissive hypertension. - Telemetry monitoring - Monitor blood glucose - PT/OT eval and treat - Neurology consulted, appreciate assistance and recommendations Remains AOx3 with no noted neurological deficit. Patient to follow up in neurology office outpatient. (6) Chronic respiratory failure with hypoxia, on home oxygen therapy: Code(s): J96.11 - Chronic respiratory failure with hypoxia; Z99.81 - Dependence on supplemental oxygen Status: Acute Assessment and Plan: Secondary to COPD on 4L supplemental oxygen at home * Duonebs * prednisone 40mg daily, course completed * See above under PNA (7) Chronic obstructive pulmonary disease, unspecified: Code(s): J44.9 - Chronic obstructive pulmonary disease, unspecified Status: Acute Assessment and Plan: * On 4L supplemental oxygen at home * Duonebs * prednisone 40mg daily, course completed * See above under PNA (8) Acute hypokalemia: Code(s): E87.6 - Hypokalemia Status: Acute Assessment and Plan: K 3.1 on am labs, given 40 mg KCl PO * Repeat labs in the morning * Replenish as needed * Telemetry (9) Hypomagnesemia: Code(s): E83.42 - Hypomagnesemia Status: Resolved Assessment and Plan: Magnesium level 1.5. * Replace with 2 g IV * Trend labs Resolved. (10) Hypercalcemia: Code(s): E83.52 - Hypercalcemia Status: Acute Assessment and Plan: Patient had a critical calcium of 12.7 likely secondary to rheumatoid arthritis however patient did state that she takes a vitamin D and multivitamin at home. * PTH WNL * Vitamin-D normal * TSH within normal * Vitamin A pending Has returned to WNL with IV fluids. (11) Fatty liver disease, nonalcoholic: Code(s): K76.0 - Fatty (change of) liver, not elsewhere classified Status: Acute Assessment and Plan: Patient with elevated liver enzymes. 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 States lower extremity weakness has been progressing for past year and a half and now notes upper extremity weakness and constantly dropping items. Patient is pleasant sitting up comfortably in her chair with family at bedside. She has no complaints denying chest pain, shortness a breath, palpitations, nausea/vomiting, abdominal pain, and dizziness/lightheadedness. Patient continues to wish to move forward with surgery and has received cardiac clearance today. Awaiting further recommendations from Neurosurgery at this time. Review of Systems Review of Systems: All systems reviewed & are unremarkable except as noted in HPI and below Exam Narrative: AF HR 93 RR 20 SpO2 94 3L NC BP 124/57 General: female in no acute respiratory distress who is nontoxic appearing, sitting up in chair HEENT: Normocephalic. Atraumatic. Extraocular movement intact. Sclera clear and anicteric. No facial asymmetry. Chest: Lungs are clear to auscultation bilaterally. No wheezes or crackles. CV: Heart was regular rate and rhythm. Abd: Abdomen was soft. Nontender. Nondistended. Positive bowel sounds. Ext: No clubbing, cyanosis, or edema. DP pulses bilaterally. Neuro: Patient is alert and oriented x4. Strength symmetrical in the upper and lower extremities with pushes and pulls. Sensation intact. Speech is clear. Objective Data Vital Signs Vital Signs: Vital Signs - 24 hr 05/07/25 09:10 05/07/25 09:11 05/07/25 09:14 Temperature Pulse Rate 98 98 Respiratory Rate Blood Pressure Pulse Oximetry 93 Oxygen Delivery Nasal Cannula Oxygen Flow Rate 3 Fraction of Inspired Oxygen 05/07/25 12:37 05/07/25 14:00 05/07/25 14:10 Temperature 98.6 F Pulse Rate 105 H 88 Respiratory Rate 20 20 Blood Pressure 125/62 Pulse Oximetry 97 Oxygen Delivery Nasal Cannula Oxygen Flow Rate 3.5 Fraction of Inspired Oxygen 05/07/25 20:00 05/07/25 20:50 05/07/25 20:50 Temperature Pulse Rate 77 77 77 Respiratory Rate 20 Blood Pressure Pulse Oximetry 100 Oxygen Delivery Nasal Cannula Oxygen Flow Rate 3 Fraction of Inspired Oxygen 05/07/25 22:00 05/08/25 05:21 Temperature 98.2 F 98.4 F Pulse Rate 77 86 Respiratory Rate 20 24 H Blood Pressure 106/66 124/57 L Pulse Oximetry 100 97 Oxygen Delivery Oxygen Flow Rate Fraction of Inspired Oxygen Intake/Output Intake/Output: Intake & Output 05/05/25 05/06/25 05/07/25 05/08/25 23:59 23:59 23:59 23:59 Intake Total 780 1160 1700 550 Output Total 800 400 Balance -20 1160 1300 550 Meds/Results Medications: Active Medications Generic Name Dose Route Start Last Admin Trade Name Freq PRN Reason Stop Dose Admin Acetaminophen 650 mg 04/27/25 17:04 04/28/25 10:59 Acetaminophen 325 Mg Tablet PO 650 mg Q4H PRN Administration Mild Pain (1-3) or Fever Hydrocodone Bitart/Acetaminophen 1 tab 04/28/25 14:50 Hydrocodone/Acetaminophen (*Crx) 5-325 Mg Tablet PO Q4H PRN Pain Rated 4-6 Albuterol 2.5 mg 04/28/25 13:31 Albuterol Sulfate Neb 2.5 Mg/3 Ml Inh INHALATION Q6HRT PRN Wheezing Albuterol/Ipratropium 3 ml 05/01/25 08:00 05/08/25 02:20 Ipratropium 0.5 Mg/Albuterol Sulfate 2.5 Mg Ampul.Neb 3 Ml INHALATION Not Given Q6HRT IVONE Aspirin 81 mg 05/01/25 08:00 05/07/25 09:11 Aspirin 81 Mg Chewable Tablet PO 81 mg DAILY@0800 IVONE Administration Budesonide 0.5 mg 05/01/25 08:00 05/07/25 21:05 Budesonide Respule Neb 0.5 Mg/2 Ml Amp INHALATION 0.5 mg Q12HRT IVONE Administration Dextrose 12.5 gm 04/27/25 17:05 Dextrose 50% 25 Gm/50 Ml Syringe IV PUSH PRN PRN Hypoglycemia Protocol Diclofenac Sodium 1 applic 05/03/25 14:13 Diclofenac Sodium 1% 100 Gm Gel (*Bkc) TOPICAL QID PRN knee pain Furosemide 40 mg 04/28/25 09:00 05/07/25 09:11 Furosemide 40 Mg Tablet BY MOUTH 40 mg DAILY IVONE Administration Glucagon 1 mg 04/27/25 17:05 Glucagon For Inj 1 Mg Vial IM PRN PRN Hypoglycemia Protocol Glucose 15 gm 04/27/25 17:05 Glucose Oral Gel 15 Gm Of Glucse In 37.5 Gm Tube PO PRN PRN Hypoglycemia Protocol Guaifenesin 1,200 mg 05/01/25 09:00 05/07/25 20:51 Guaifenesin 12 Hr 600 Mg Tabcr PO 1,200 mg Q12HR IVONE Administration Dextrose 1,000 mls @ 100 mls/hr 04/27/25 17:05 Dextrose 5% 1,000 Ml IVPB PRN PRN Hypoglycemia Protocol Insulin Aspart 2 - 5 units 04/28/25 08:00 05/07/25 17:37 Insulin Aspart (*Bkc) 100 Units/Ml SUB-Q Not Given TIDWM IVONE Protocol Insulin Aspart 1 - 2 units 04/27/25 21:00 05/07/25 20:48 Insulin Aspart (*Bkc) 100 Units/Ml SUB-Q 1 units HS IVONE Administration Protocol Leflunomide 20 mg 04/27/25 22:55 05/07/25 20:48 Leflunomide 20 Mg Tablet PO 20 mg HS IVONE Administration Melatonin 3 mg 05/03/25 11:07 05/07/25 20:51 Melatonin 3 Mg Tablet PO 3 mg HS PRN Administration Insomnia Metoprolol Tartrate 25 mg 04/27/25 22:30 05/07/25 20:50 Metoprolol Tartrate 25 Mg Tablet BY MOUTH 25 mg Q12HR IVONE Administration Mirtazapine 7.5 mg 04/27/25 23:00 05/07/25 20:50 Mirtazapine 7.5 Mg Tablet PO 7.5 mg QHS IVONE Administration Pantoprazole Sodium 40 mg 04/28/25 09:00 05/07/25 09:11 Pantoprazole 40 Mg Tablet PO 40 mg QAM IVONE Administration Pramipexole Dihydrochloride 0.5 mg 04/27/25 23:00 05/07/25 20:48 Pramipexole 0.5 Mg Tablet PO 0.5 mg HS IVONE Administration Pravastatin Sodium 10 mg 04/28/25 09:00 05/07/25 09:11 Pravastatin Sodium 10 Mg Tablet BY MOUTH 10 mg DAILY IVONE Administration Rivaroxaban 20 mg 04/28/25 17:00 05/04/25 17:17 Rivaroxaban 20 Mg Tablet BY MOUTH 20 mg On Hold: 05/05/25 16:32 DAILY@1700 IVONE Administration Senna/Docusate Sodium 1 tab 04/28/25 21:00 05/07/25 20:50 Senna/Docusate Sodium Tablet PO 1 tab HS IVONE Administration Sotalol HCl 80 mg 04/27/25 23:00 05/07/25 20:50 Sotalol Hcl 80 Mg Tablet PO 80 mg Q12HR IVONE Administration Radiology Results: ITS Impressions Chest X-Ray 04/27/25 13:28 IMPRESSION: 1: Chronic apical infiltrates which may represent atypical pneumonia, fibrosis or scarring. Head/Neck CTA 04/30/25 11:58 IMPRESSION: 1. Age-related changes the brain with mild diffuse volume loss and moderate scattered white matter hypoattenuation consistent with chronic small vessel ischemic disease. No acute intracranial process or abnormally enhancing brain lesion. 2. 30% stenosis of the right carotid bulb relative to normal distal artery lumen diameter (NASCET criteria). 3. Small amount of atherosclerotic plaque with 0% stenosis of the left carotid bulb relative to normal distal artery lumen diameter. 4. 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 5. Unremarkable cerebral CT angiogram with no thrombosis, hematoma significant stenosis or aneurysm. 6. Multifocal pneumonia in the upper lungs. Brain MRI 04/30/25 13:15 IMPRESSION: 1. Normal aging brain with mild diffuse volume loss and moderate scattered mesenteric periventricular predominant white matter T2 hyperintensity consistent with chronic small vessel ischemic disease. No acute intracranial process. Cervical Spine MRI 05/02/25 15:03 IMPRESSION: 1. Severe cervical spondylosis most notable for severe central canal and severe left and moderate right neural foraminal stenosis at C3-C4. 2. Instrumented C5-C6 anterior spinal fusion. Thoracic Spine MRI 05/02/25 15:28 IMPRESSION: 1. Moderate thoracic spondylosis. 2. Bilateral lung disease suspicious for pneumonia with small bilateral pleural effusions. Lumbar Spine MRI 05/02/25 15:42 IMPRESSION: 1. Severe lumbar spondylosis with severe central canal stenosis at L2-L3 and moderate to severe central canal stenosis at L3-L4 and L4-L5 despite posterior decompression with left hemilaminotomy superimposed of these levels. Labs Labs: Laboratory Results - last 24 hr 05/01/25 05/07/25 05/07/25 17:57 08:32 11:36 POC Capillary Glucose 143 H 201 H Methylmalonic Acid 152 05/07/25 05/07/25 16:05 20:45 POC Capillary Glucose 181 H 236 H Methylmalonic Acid Quality VTE Prophylaxis VTE prophylaxis: pharmacologic ordered
[2025-05-08] MEDS: BUDESONIDE RESPULE NEB 0.5 MG/2 ML AMP INHALATION (08:11)
[2025-05-08] MEDS: IPRATROPIUM 0.5 MG/ALBUTEROL SULFATE 2.5 MG AMPUL.NEB 3 ML INHALATION (08:11)
[2025-05-08 08:14] LABS: Hematocrit 34.8 % (37.0-47.0); Hemoglobin 10.9 g/dL (12.0-15.0); Mean Corpuscular HGB Conc 31.3 g/dl (32-36); Mean Corpuscular Hemoglobin 28.4 pg (26-34); Mean Corpuscular Volume 90.6 fl (80-100); Platelet Count Result 229 k/mm3 (150-375); Red Blood Count 3.84 M/mm3 (4.2-5.4); White Blood Count 9.5 K/mm3 (4.5-10.0)
[2025-05-08 08:28] LABS: Alanine Aminotransferase 42 U/L (6-35); Albumin Level 3.0 g/dL (3.5-5.1); Alkaline Phosphatase 184 U/L (38-126); Anion Gap 2 mmol/L (4-12); Aspartate Amino Transferase 36 U/L (14-36); Bilirubin,Total 0.6 mg/dL (0.2-1.3); Blood Urea Nitrogen 21 mg/dL (7-17); Calcium 9.0 mg/dL (8.4-10.2); Carbon Dioxide 34 mmol/L (22-30); Chloride 97 mmol/L (98-107); Estimated CRCL calculation 42 ml/min; Estimated Glomerular Filt Rate 58; Glucose 129 mg/dL (65-110); Potassium 3.1 mmol/L (3.4-5.0); Sodium 133 mmol/L (137-145); Total Protein 5.7 g/dL (6.3-8.2)
--- NOTE | 2025-05-08 09:28 | PM.CNCAR ---
Assessment and Plan Assessment and plan (1) Preop cardiovascular exam: Code(s): Z01.810 - Encounter for preprocedural cardiovascular examination Status: Acute Assessment and Plan: Asymptomatic from cardiac standpoint. Nuclear stress test under 3 years ago. Low cardiac risk. May proceed to cervical nerve surgery without further cardiac workup. May hold Xarelto for 3 days prior to surgery. (2) 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: Code(s): I25.719 - Atherosclerosis of autologous vein coronary artery bypass graft(s) with unspecified angina pectoris Status: Chronic Assessment and Plan: Stable. (3) Essential hypertension: Code(s): I10 - Essential (primary) hypertension Status: Acute Assessment and Plan: Stable. (4) Paroxysmal atrial fibrillation: Code(s): I48.0 - Paroxysmal atrial fibrillation Status: Chronic Assessment and Plan: In Sinus rhythm. On Xarelto and Sotalol. (5) Dyslipidemia: Code(s): E78.5 - Hyperlipidemia, unspecified Status: Acute Assessment and Plan: On Pravastatin. History of Present Illness History of Present Illness Consult date/time: 05/08/25 09:28 Reason For Visit: Lower Extremity Weakness Narrative: 75 yr old woman who is my regular cardiology patient presents to hospital due to progressive legs and arms weakness. She has a history of PAF, PAT, dyslipidemia (intolerant of Vascepa causing sob), CAD/CABG and MV repair, COPD, she had symptoms of Covid in Aug 2020 while in [place]. is at bedside. States she could not walk across room due to leg weakness and started feeling weakness in arms also. She is on oxygen at 4 l/m only with activity. Previously, stated she had weakness to both legs due to arthritis of lower back and possibly PMR in Oct 2021 and can walk short distances. Denies chest pain, sob, orthopnea, edema. 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 12/01/13 Cardiac cath: PCI with TARA to OM1 for NSTEMI. Echo/MUGA:: 11/21/22 Echo: EF 60-65%, diastolic dysfunction (E/e '28), mod LAE, mod MAC, trace MR/PI, mild TR, RVSP 59 mmHg. 06/12/22 Echo: EF 60-65%, mild LAE, mitral valve repair, mod MAC, mod MV calcifications, consider mod MS(1.1 cm2), trace MR. 06/25/19 Echo EF 65%, diastolic dysfunction (E/e' 35), mild LAE, mod MAC, trace TR, evidence of mitral valve repair. Electrophysiology:: 05/05/24 EKG: Sinus tachycardia at 104 bpm, PAC, IRBBB, QTc 402 ms. 05/08/23 EKG: Sinus tachycardia at 107 bpm, PAC, IRBBB, low voltage in precordial leads. 12/09/22 EKG: Sinus tachycardia at 104 bpm, PAC's, IRBBB, QTc 397 ms. 11/21/22 EKG: Sinus tachycardia at 108 bpm, PAC and PVC. 01/03/22 EKG: Sinus rhythm at 72 bpm with frequent PAC's, QTc 391 ms. 03/09/21 EKG: Sinus rhythm at 62 bpm. 01/15/21 EKG: Sinus rhythm at 86 bpm, supraventricular bigeminy, QTc 409 ms. 06/07/20 EKG: Sinus tachycardia at 102 bpm, PAC, QTc 388 ms. 07/05/19 EKG: Sinus rhythm at 86 bpm, QTc 389 ms. 12/31/18 EKG: Sinus rhythm at 84 bpm, first degree AV block, QTc 404 ms. 06/29/17 EKG: MAT at 113 bpm, QTc 392 ms. Stress Tests:: 06/12/22 Lexiscan myoview: negative for ischemia. 09/18/15 Lexiscan myoview: Negative for ischemia. 12/22/24 CTA chest: No pulm embolism. Patchy groundglass opacity of bilateral upper lobes. 05/08/23 Venous duplex: NO DVT of both legs. Review of Systems Review of Systems: All systems reviewed & are unremarkable except as noted in HPI and below Cardiovascular: Cardiovascular: Reports as per HPI, Denies chest pain and Denies irregular heart rhythm Respiratory: Respiratory: Reports as per HPI and Denies dyspnea Gastrointestinal: Gastrointestinal: Reports as per HPI and Denies abdominal pain Genitourinary: Genitourinary: Reports as per HPI and Denies dysuria Musculoskeletal: Musculoskeletal: Reports as per HPI Neurologic: Reports as per HPI, Denies dizziness and Denies syncope [facility] Past Medical History Medical History (Updated 05/08/25 @ 09:32 by Miky Sorensen DO) Preop cardiovascular exam Chronic obstructive pulmonary disease, unspecified Hard of hearing Eustachian tube dysfunction Cubital tunnel syndrome on right Pulmonary hypertension Chronic idiopathic myocarditis Restless leg syndrome 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 Chronic respiratory failure with hypoxia, on home oxygen therapy Transient ischemic attack Chronic hyponatremia Venous insufficiency Iron deficiency anemia Polymyalgia rheumatica Small vessel disease, cerebrovascular Chronic anticoagulation Paroxysmal atrial fibrillation Coronary artery disease Microscopic colitis Chronic diarrhea Exocrine pancreatic insufficiency COVID-19 Cervical arthritis Pneumonia Dyslipidemia Essential hypertension Gastro-esophageal reflux disease without esophagitis Multifocal atrial tachycardia Surgical History Surgical History History of heart artery stent History of cardiac catheterization History of bilateral knee replacement History of bilateral carpal tunnel release History of colonoscopy with polypectomy History of coronary artery bypass graft x 2 (12/2013) History of Achilles tendon repair History of spinal surgery Lumbar micro discectomy infusion. History of mitral valve repair History of shoulder surgery History of cataract extraction Left History of hand surgery trigger finger, thumb Family History Family History Mother Cerebrovascular accident Family history of diabetes mellitus in first degree relative Family history of coronary artery disease Acute myocardial infarction Diabetes mellitus Father Carcinoma of colon Family history of lung cancer Family history of malignant neoplasm of esophagus Sibling Liver disease Liver transplant recipient Other Family history of malignant neoplasm of brain Family history of malignant neoplasm of stomach Social History Social History Social History: Surrogate medical decision maker: Filippo Clifford, spouse. Code status: Full code. Smoking status: Never smoker Second hand tobacco smoke exposure: Yes Alcohol intake: current Drinks per week: 1 Alcohol use details: Rare alcohol use in moderation. Substance use: never Substance use type: does not use Do You Feel Safe in your Home?: Yes Lack of Transportation: No Lack of Food: Never True Current Housing: I Have Housing Concerned About Future Housing: No Difficulty Paying Gas/Electric Bills: No Difficulty Paying for Meds: No Currently Unemployed: No Education: High School Diploma/GED Difficulty w/ Childcare or Family Care: No Living arrangements: with family Additional living arrangements comments: Lives in [place] spouse. Occupation/Education: retired Additional occupation/education comments: Worked in [employer]. Spiritual care concerns: No Meds Home Medications and Allergies Home Medications ?Medication ?Instructions ?Recorded ?Confirmed ?Type leflunomide 20 mg tablet 20 mg PO HS 07/04/19 04/27/25 History omega 5-qkp-kcy-fish oil 100 2 cap PO .q12hr 06/12/23 04/27/25 History mg-160 mg-1,000 mg capsule (Fish Oil) arformoterol 15 mcg/2 mL solution See Rx Instructions .Route 06/16/24 04/27/25 Rx for nebulization .COMPLEX #30 ea evolocumab 140 mg/mL subcutaneous 140 mg subcut .every 2 weeks #2 mL 11/10/24 04/27/25 Rx pen injector (Angelika Freeman) metoprolol tartrate 25 mg tablet See Rx Instructions .Route 01/05/25 04/27/25 Rx .COMPLEX #180 tabs rivaroxaban 20 mg tablet (Xarelto) See Rx Instructions .Route 01/10/25 04/27/25 Rx .COMPLEX #30 tabs albuterol sulfate 90 mcg/actuation 2 inh inhalation Q6H PRN shortness 02/06/25 04/27/25 Rx aerosol inhaler of breath or wheezing #8.5 grams furosemide 40 mg tablet See Rx Instructions .Route 02/13/25 04/27/25 Rx .COMPLEX #90 tabs mirtazapine 7.5 mg tablet 7.5 mg PO QHS #30 tabs 03/01/25 04/27/25 Rx pravastatin 10 mg tablet See Rx Instructions .Route 03/07/25 04/27/25 Rx .COMPLEX #90 tabs tirzepatide 5 mg/0.5 mL 5 mg (0.5 mL) subcut WEEKLY #2 mL 03/12/25 04/27/25 Rx subcutaneous pen injector pramipexole 0.5 mg tablet 0.5 mg PO HS #90 tabs 03/19/25 04/27/25 Rx pantoprazole 40 mg tablet,delayed 40 mg PO QAM #90 tabs 04/02/25 04/27/25 Rx release potassium chloride 10 mEq oral 10 meq PO DAILY #30 ea 04/17/25 04/27/25 Rx packet (Pokonza) metformin 500 mg tablet,extended 1,000 mg PO QPM 04/27/25 04/27/25 History release 24 hr sotalol 80 mg tablet 80 mg PO Q12H 04/27/25 04/27/25 History Allergies Allergy/AdvReac Type Severity Reaction Status Date / Time ciprofloxacin Allergy Mild Unknown Verified 04/27/25 15:22 codeine Allergy Mild Vomiting Verified 04/27/25 15:22 levofloxacin Allergy Unknown Unknown Verified 04/27/25 15:22 lisinopril Allergy Unknown Unknown Verified 04/27/25 15:22 amoxicillin (From Augmentin) AdvReac Severe Confusion Verified 04/27/25 15:22 clavulanic acid (From AdvReac Severe Confusion Verified 04/27/25 15:22 Augmentin) tramadol AdvReac Mild Vomiting Verified 04/27/25 15:22 Vital Signs Vital Signs - 24 hr 05/07/25 12:37 05/07/25 14:00 05/07/25 14:10 Temperature 98.6 F Pulse Rate 105 H 88 Respiratory Rate 20 20 Blood Pressure 125/62 Pulse Oximetry 97 Oxygen Delivery Nasal Cannula Oxygen Flow Rate 3.5 Fraction of Inspired Oxygen 05/07/25 20:00 05/07/25 20:50 05/07/25 20:50 Temperature Pulse Rate 77 77 77 Respiratory Rate 20 Blood Pressure Pulse Oximetry 100 Oxygen Delivery Nasal Cannula Oxygen Flow Rate 3 Fraction of Inspired Oxygen 05/07/25 22:00 05/08/25 05:21 05/08/25 08:12 Temperature 98.2 F 98.4 F Pulse Rate 77 86 98 Respiratory Rate 20 24 H 20 Blood Pressure 106/66 124/57 L Pulse Oximetry 100 97 94 Oxygen Delivery Nasal Cannula Oxygen Flow Rate 3 Fraction of Inspired Oxygen 05/08/25 08:12 05/08/25 08:21 Temperature Pulse Rate 98 72 Respiratory Rate 20 20 Blood Pressure Pulse Oximetry Oxygen Delivery Oxygen Flow Rate Fraction of Inspired Oxygen Exam Const: General: cooperative, healthy appearing and comfortable Resp: Auscultation: no crackles, no rales, no rhonchi, no wheezes and diminished lung sounds Cardio: Rate: regular rate Rhythm: regular rhythm Heart sounds: no murmurs Peripheral pulses: dorsalis pedis present GI: GI Palp: No abdominal tenderness and Yes Soft to palpation Neuro: General: oriented to person, oriented to place and oriented to time Extrem: Right lower extremity: no edema Left lower extremity: no edema Results Labs and Meds 05/08/25 08:03 05/08/25 08:03 Lab results: Cardiac Enzymes 05/08/25 Range/Units 08:03 AST 36 (14-36) U/L CBC 05/08/25 Range/Units 08:03 WBC 9.5 (4.5-10.0) K/mm3 RBC 3.84 L (4.2-5.4) M/mm3 Hgb 10.9 L (12.0-15.0) g/dL Hct 34.8 L (37.0-47.0) % Plt Count 229 (150-375) k/mm3 Comprehensive Metabolic Panel 05/08/25 Range/Units 08:03 Sodium 133 L (137-145) mmol/L Potassium 3.1 L (3.4-5.0) mmol/L Chloride 97 L (98-107) mmol/L Carbon Dioxide 34 H (22-30) mmol/L BUN 21 H (7-17) mg/dL Creatinine 0.95 (0.7-1.0) mg/dL Glucose 129 H (65-110) mg/dL Calcium 9.0 (8.4-10.2) mg/dL AST 36 (14-36) U/L ALT 42 H (6-35) U/L Alkaline Phosphatase 184 H (38-126) U/L Total Protein 5.7 L (6.3-8.2) g/dL Albumin 3.0 L (3.5-5.1) g/dL Intake and Output 05/07/25 05/08/25 05/08/25 23:59 07:59 15:59 Intake Total 740 550 480 Balance 740 550 480 Intake: Oral 740 550 240 Oral Supplement 240 Other: # Unmeasured Voids 3 # Incontinent Voids 2 # Urine Diapers 1 Number of Bowel Movements Today 2
[2025-05-08] MEDS: FUROSEMIDE 40 MG TABLET BY MOUTH (09:36)
[2025-05-08] MEDS: SOTALOL HCL 80 MG TABLET PO (09:37)
[2025-05-08] MEDS: PANTOPRAZOLE 40 MG TABLET PO (09:37)
[2025-05-08] MEDS: METOPROLOL TARTRATE 25 MG TABLET BY MOUTH (09:42)
[2025-05-08] MEDS: PRAVASTATIN SODIUM 10 MG TABLET BY MOUTH (09:42)
[2025-05-08] MEDS: guaiFENesin 12 HR 600 MG TABCR 1200 MG PO (09:42)
[2025-05-08] MEDS: INSULIN ASPART (*BKC) 100 UNITS/ML SUB-Q (12:39)
--- NOTE | 2025-05-08 16:11 | P.TS_ITS ---
Transfer Discharge Sum: Prov Provider Date of admission: 04/27/25 13:32 Primary care physician: Parminder Rojas MD Admitting clinician: Atul East MD Consults: 04/30/25 Consult to Physician Routine Comment: Spoke to DR @0818 05/01 [facility] Consulting Provider: Madison Leiws yardage caller/MD group to consult: Neurology Reason for consultation: TIA Has provider been notified: Yes 05/03/25 Consult to Physician Routine Comment: Spoke to office 05/05 [id number] ([facility]) Consulting Provider: Greg Renae Reason for consultation: severe lumbar canal stenosis, L2-L3 Has provider been notified: Yes 05/07/25 Consult to Physician Routine Comment: LVM @ Dr Sorensen office @ 08:30am ([facility]) Consulting Provider: Miky Sorensen yardage caller/ group to consult: cardiology-checked prior visits appears to be Dr Stewart patient/ Reason for consultation: cardiac clearance for neurosurgery Has provider been notified: Yes Attending physician on discharge: Justyn Nicole Discharging clinician: Feli Sanchez Anticipated date of transfer: 05/08/25 Receiving physician/facility: [facility], Dr. Arrington Hospitalist DS: Admitting Diagnosis Discharge Date 05/08/2025 Admitting Diagnosis Cervical stenosis Fall Urinary tract infection pneumonia TIA Chronic respiratory failure with hypoxia COPD Acute hypokalemia Hypomagnesemia Hypercalcemia Fatty liver disease Paroxysmal AFib Diabetes mellitus Hypertension CAD DS: Discharge Diagnosis Discharge Diagnosis (1) Cervical stenosis of spine: Code(s): M48.02 - Spinal stenosis, cervical region Status: Acute (2) Fall: Code(s): W19.XXXA - Unspecified fall, initial encounter Status: Acute (3) UTI (urinary tract infection): Code(s): N39.0 - Urinary tract infection, site not specified Status: Acute (4) Pneumonia: Code(s): J18.9 - Pneumonia, unspecified organism Status: Acute (5) TIA (transient ischemic attack): Code(s): G45.9 - Transient cerebral ischemic attack, unspecified Status: Acute (6) Chronic respiratory failure with hypoxia, on home oxygen therapy: Code(s): J96.11 - Chronic respiratory failure with hypoxia; Z99.81 - Dependence on supplemental oxygen Status: Acute (7) Chronic obstructive pulmonary disease, unspecified: Code(s): J44.9 - Chronic obstructive pulmonary disease, unspecified Status: Acute (8) Acute hypokalemia: Code(s): E87.6 - Hypokalemia Status: Acute (9) Hypomagnesemia: Code(s): E83.42 - Hypomagnesemia Status: Resolved (10) Hypercalcemia: Code(s): E83.52 - Hypercalcemia Status: Acute (11) Fatty liver disease, nonalcoholic: Code(s): K76.0 - Fatty (change of) liver, not elsewhere classified Status: Acute (12) Paroxysmal atrial fibrillation: Code(s): I48.0 - Paroxysmal atrial fibrillation Status: Chronic (13) Type 2 diabetes mellitus with diabetic nephropathy: Qualifiers: Diabetes mellitus continuous churn buttermaker insulin use: without custodial use Qualified Code(s): E11.21 - Type 2 diabetes mellitus with diabetic nephropathy Code(s): E11.21 - Type 2 diabetes mellitus with diabetic nephropathy Status: Acute (14) Essential hypertension: Code(s): I10 - Essential (primary) hypertension Status: Acute (15) 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: Code(s): I25.719 - Atherosclerosis of autologous vein coronary artery bypass graft(s) with unspecified angina pectoris Status: Chronic Transfer Discharge Sum: Med Medications Active and Home Medications: Home Medications leflunomide 20 mg tablet 20 mg PO HS 07/04/19 [History Confirmed 04/27/25] omega 3-zbf-drt-fish oil 100 mg-160 mg-1,000 mg capsule (Fish Oil) 2 cap PO .q12hr 06/12/23 [History Confirmed 04/27/25] arformoterol 15 mcg/2 mL solution for nebulization See Rx Instructions .Route .COMPLEX #30 ea 06/16/24 [Rx Confirmed 04/27/25] evolocumab 140 mg/mL subcutaneous pen injector (Repatha SureClick) 140 mg subcut .every 2 weeks #2 mL 11/10/24 [Rx Confirmed 04/27/25] metoprolol tartrate 25 mg tablet See Rx Instructions .Route .COMPLEX #180 tabs 01/05/25 [Rx Confirmed 04/27/25] rivaroxaban 20 mg tablet (Xarelto) See Rx Instructions .Route .COMPLEX #30 tabs 01/10/25 [Rx Confirmed 04/27/25] albuterol sulfate 90 mcg/actuation aerosol inhaler 2 inh inhalation Q6H PRN shortness of breath or wheezing #8.5 grams 02/06/25 [Rx Confirmed 04/27/25] furosemide 40 mg tablet See Rx Instructions .Route .COMPLEX #90 tabs 02/13/25 [Rx Confirmed 04/27/25] mirtazapine 7.5 mg tablet 7.5 mg PO QHS #30 tabs 03/01/25 [Rx Confirmed 04/27/25] pravastatin 10 mg tablet See Rx Instructions .Route .COMPLEX #90 tabs 03/07/25 [Rx Confirmed 04/27/25] tirzepatide 5 mg/0.5 mL subcutaneous pen injector 5 mg (0.5 mL) subcut WEEKLY #2 mL 03/12/25 [Rx Confirmed 04/27/25] pramipexole 0.5 mg tablet 0.5 mg PO HS #90 tabs 03/19/25 [Rx Confirmed 04/27/25] pantoprazole 40 mg tablet,delayed release 40 mg PO QAM #90 tabs 04/02/25 [Rx Confirmed 04/27/25] potassium chloride 10 mEq oral packet (Pokonza) 10 meq PO DAILY #30 ea 04/17/25 [Rx Confirmed 04/27/25] metformin 500 mg tablet,extended release 24 hr 1,000 mg PO QPM 04/27/25 [History Confirmed 04/27/25] sotalol 80 mg tablet 80 mg PO Q12H 04/27/25 [History Confirmed 04/27/25] Active Medications Acetaminophen (Acetaminophen 325 Mg Tablet) 650 mg PO Q4H PRN PRN Reason: Mild Pain (1-3) or Fever Last Admin: 04/28/25 10:59 Dose: 650 mg Albuterol (Albuterol Sulfate Neb 2.5 Mg/3 Ml Inh) 2.5 mg INHALATION Q6HRT PRN PRN Reason: Wheezing Albuterol/Ipratropium (Ipratropium 0.5 Mg/Albuterol Sulfate 2.5 Mg Ampul.Neb 3 Ml) 3 ml INHALATION Q6HRT IVONE Last Admin: 05/08/25 14:50 Dose: Not Given Aspirin (Aspirin 81 Mg Chewable Tablet) 81 mg PO DAILY@0800 IVONE Last Admin: 05/08/25 09:37 Dose: Not Given Budesonide (Budesonide Respule Neb 0.5 Mg/2 Ml Amp) 0.5 mg INHALATION Q12HRT IVONE Last Admin: 05/08/25 08:11 Dose: 0.5 mg Dextrose (Dextrose 50% 25 Gm/50 Ml Syringe) 12.5 gm IV PUSH PRN PRN; Protocol PRN Reason: Hypoglycemia Diclofenac Sodium (Diclofenac Sodium 1% 100 Gm Gel (*Bkc)) 1 applic TOPICAL QID PRN PRN Reason: knee pain Furosemide (Furosemide 40 Mg Tablet) 40 mg BY MOUTH DAILY IVONE Last Admin: 05/08/25 09:36 Dose: 40 mg Glucagon (Glucagon For Inj 1 Mg Vial) 1 mg IM PRN PRN; Protocol PRN Reason: Hypoglycemia Glucose (Glucose Oral Gel 15 Gm Of Glucse In 37.5 Gm Tube) 15 gm PO PRN PRN; Protocol PRN Reason: Hypoglycemia Guaifenesin (Guaifenesin 12 Hr 600 Mg Tabcr) 1,200 mg PO Q12HR IVONE Last Admin: 05/08/25 09:42 Dose: 1,200 mg Dextrose (Dextrose 5% 1,000 Ml) 1,000 mls @ 100 mls/hr IVPB PRN PRN; Protocol PRN Reason: Hypoglycemia Insulin Aspart (Insulin Aspart (*Bkc) 100 Units/Ml) 2 - 5 units SUB-Q TIDWM IVONE; Protocol Last Admin: 05/08/25 12:39 Dose: 3 units Insulin Aspart (Insulin Aspart (*Bkc) 100 Units/Ml) 1 - 2 units SUB-Q HS IVONE; Protocol Last Admin: 05/07/25 20:48 Dose: 1 units Leflunomide (Leflunomide 20 Mg Tablet) 20 mg PO HS IVONE Last Admin: 05/07/25 20:48 Dose: 20 mg Melatonin (Melatonin 3 Mg Tablet) 3 mg PO HS PRN PRN Reason: Insomnia Last Admin: 05/07/25 20:51 Dose: 3 mg Metoprolol Tartrate (Metoprolol Tartrate 25 Mg Tablet) 25 mg BY MOUTH Q12HR IVONE Last Admin: 05/08/25 09:42 Dose: 25 mg Mirtazapine (Mirtazapine 7.5 Mg Tablet) 7.5 mg PO QHS [facility] Last Admin: 05/07/25 20:50 Dose: 7.5 mg Pantoprazole Sodium (Pantoprazole 40 Mg Tablet) 40 mg PO QAM [facility] Last Admin: 05/08/25 09:37 Dose: 40 mg Pramipexole Dihydrochloride (Pramipexole 0.5 Mg Tablet) 0.5 mg PO [facility] Last Admin: 05/07/25 20:48 Dose: 0.5 mg Pravastatin Sodium (Pravastatin Sodium 10 Mg Tablet) 10 mg BY MOUTH DAILY [facility] Last Admin: 05/08/25 09:42 Dose: 10 mg Rivaroxaban (Rivaroxaban 20 Mg Tablet) 20 mg BY MOUTH DAILY@1700 [facility] On Hold: 05/05/25 16:32 Last Admin: 05/04/25 17:17 Dose: 20 mg Senna/Docusate Sodium (Senna/Docusate Sodium Tablet) 1 tab PO [facility] Last Admin: 05/07/25 20:50 Dose: 1 tab Sotalol HCl (Sotalol Hcl 80 Mg Tablet) 80 mg PO Q12HR [facility] Last Admin: 05/08/25 09:37 Dose: 80 mg Transfer Discharge Sum: Hosp Hospital Course Hospital course: Laura Clifford is a 75 year old female with past medical history of COPD on 4 L at home, CAD, diabetes, hypertension, and AFib presents the hospital with weakness resulting in a fall. States lower extremity weakness has been progressing for past year and a half and now notes upper extremity weakness and constantly dropping items. Patient was noted to have a fall at home and was unable to get up on her own. On admission patient was noted to have several electrolyte abnormalities including hypokalemia, hypomagnesiumia, and hypercalcemia. All electrolyte abnormalities resolved during admission with fluids and supplementation. UA concerning for infection. Culture grew pansensitive E coli. Patient completed course of antibiotics during admission. Prior to transfer patient denied all UTI like symptoms including dysuria, burning sensation, hematuria, and urgency/frequency of voiding. Chest XR revealed chronic apical infiltrates which may represent atypical pneum onia, fibrosis or scarring. Patient treated for pneumonia and possible copd exacerbation. Completed antibiotic course during admission. Prior to transfer patient stated she returned to her baseline shortness of breath. Patient being worked up for weakness. Head neck/cta showed chronic small vessel ischemic disease. No acute intracranial process or abnormally enhancing brain lesion. Patient started on aspirin and continued her pravastatin. Neurology was consulted. MRI brain was obtained and showed a normal aging brain with some white matter changes consistent with chronic small-vessel disease.Per neurology the MRI of the brain showed some white matter changes but was not sufficient to account for all the weakness she was having. Neurology recommended obtaining C/T/L-spine MRIs. C spine MRI showed severe cervical spondylosis most notable for severe central canal and severe left and moderate right neural foraminal stenosis at C3-C4. Instrumented C5-C6 anterior spinal fusion. T spine MRI showed moderate thoracic spondylosis. L spine MRI showed severe lumbar spondylosis with severe central canal stenosis at L2-L3 and moderate to severe central canal stenosis at L3-L4 and L4-L5 despite posterior decompression with left hemilaminotomy superimposed of these levels. Neurosurgery consulted for the progressive weakness and numbness likely related to the cervical and lumbar stenosis noted on the C/L-spine MRIs. Patient was evaluated by Neurosurgery and after a discussion with Dr. Renae she wished to move forward with surgery. Neurosurgery requested a CT C-spine and an x-ray of the C-spine flexion- extension be obtained. CT c spine showed severe cervical spondylosis with instrumented C5-C6 anterior spinal fusion. C spine XR showed Severe cervical spondylosis with C5-6 instrumented anterior spinal fusion. Cervical hypomobility with flexion and extension but no spondylolisthesis or abnormal translatory motion. Cardiology was consulted during admission for cardiac clearance which was granted. On day of transfer discussed patient with Dr. Renae who wishes for patient to be transferred to [facility] for surgery given the complexity of her case. He states that he will be the accepting neurosurgeon for consult. Received acceptance from [facility] hospitalist Dr. Arrington. Patient transferred to [facility] in a stable condition. All imaging that was obtained during this admission was forwarded to [facility] prior to transfer and patient received a disc as well. Patient Condition: Stable Time Spent with Patient Time attestation: Total time spent providing and/or coordinating transfer services: Total time spent: Greater than 30 minutes Exam Narrative: AF HR 93 RR 20 SpO2 94 3L NC BP 124/57 General: female in no acute respiratory distress who is nontoxic appearing, sitting up in chair HEENT: Normocephalic. Atraumatic. Extraocular movement intact. Sclera clear and anicteric. No facial asymmetry. Chest: Lungs are clear to auscultation bilaterally. No wheezes or crackles. CV: Heart was regular rate and rhythm. Abd: Abdomen was soft. Nontender. Nondistended. Positive bowel sounds. Ext: No clubbing, cyanosis, or edema. DP pulses bilaterally. Neuro: Patient is alert and oriented x4. Strength symmetrical in the upper and lower extremities with pushes and pulls. Sensation intact. Speech is clear. DS: Data Data Completed and Pending Completed studies during hospitalization: Cervical spine x-ray Cervical spine CT Lumbar spine MRI Thoracic spine MRI Cervical spine MRI Brain MRI Head/neck CTA Chest x-ray Labs on day of discharge: Labs from last 24 hours 05/08/25 05/08/25 05/08/25 11:35 08:03 08:00 WBC 9.5 RBC 3.84 L Hgb 10.9 L Hct 34.8 L MCV 90.6 MCH 28.4 MCHC 31.3 L RDW 16.8 H Plt Count 229 MPV 11.2 H Sodium 133 L Potassium 3.1 L Chloride 97 L Carbon Dioxide 34 H Anion Gap 2 L BUN 21 H Creatinine 0.95 Estim Creat Clear Calc 42 Estimated GFR 58 L Glucose 129 H POC Capillary Glucose 278 H 127 H Calcium 9.0 Total Bilirubin 0.6 AST 36 ALT 42 H Alkaline Phosphatase 184 H Total Protein 5.7 L Albumin 3.0 L 05/07/25 05/07/25 20:45 16:05 WBC RBC Hgb Hct MCV MCH MCHC RDW Plt Count MPV Sodium Potassium Chloride Carbon Dioxide Anion Gap BUN Creatinine Estim Creat Clear Calc Estimated GFR Glucose POC Capillary Glucose 236 H 181 H Calcium Total Bilirubin AST ALT Alkaline Phosphatase Total Protein Albumin
== END 2025-05-08 19:20 | disposition short-term general hospital (02) | DRG 551 ==
LOC: ANHED 13:31 → ANH3MED 14:45
PROVIDERS: Emergency Medicine; Nurse Practitioner Family; Nurse Practitioner Gerontology; Psychiatry & Neurology Neurology; Admitting Provider Internal Medicine; Emergency Provider Family Medicine; PCP Family Medicine; Visit Provider Student in an Organized Health Care Education/Training Program
DX: M48.02 Spinal stenosis, cervical region (principal); J18.9 Pneumonia, unspecified organism; J96.21 Acute and chronic respiratory failure with hypoxia; N39.0 Urinary tract infection, site not specified; J44.0 Chronic obstructive pulmonary disease with (acute) lower respiratory infection; J44.1 Chronic obstructive pulmonary disease with (acute) exacerbation; M47.12 Other spondylosis with myelopathy, cervical region; M47.812 Spondylosis without myelopathy or radiculopathy, cervical region; M48.061 Spinal stenosis, lumbar region without neurogenic claudication; R53.1 Weakness; B96.20 Unspecified Escherichia coli [E. coli] as the cause of diseases classified elsewhere; E87.6 Hypokalemia; K76.0 Fatty (change of) liver, not elsewhere classified; E11.21 Type 2 diabetes mellitus with diabetic nephropathy; M06.9 Rheumatoid arthritis, unspecified; E78.5 Hyperlipidemia, unspecified; E83.52 Hypercalcemia; E83.42 Hypomagnesemia; D50.9 Iron deficiency anemia, unspecified; I48.0 Paroxysmal atrial fibrillation; I25.10 Atherosclerotic heart disease of native coronary artery without angina pectoris; K21.9 Gastro-esophageal reflux disease without esophagitis; W19.XXXA Unspecified fall, initial encounter; G25.81 Restless legs syndrome; M35.3 Polymyalgia rheumatica; Z96.653 Presence of artificial knee joint, bilateral; Z20.822 Contact with and (suspected) exposure to COVID-19; Z98.1 Arthrodesis status; Z99.81 Dependence on supplemental oxygen; Z79.01 Long term (current) use of anticoagulants; Z86.16 Personal history of COVID-19; Z95.5 Presence of coronary angioplasty implant and graft; Z95.1 Presence of aortocoronary bypass graft; Z86.73 Personal history of transient ischemic attack (TIA), and cerebral infarction without residual deficits
CPT/HCPCS: 36415; 70496; 70498; 70551; 71046; 72050; 72125; 72141; 72146; 72148; 80053; 80061; 81001; 82306; 82397; 82607; 82746; 82948; 83735; 83921; 84132; 84443; 84590; 85025; 85027; 87086; 87637; 87641; 93005; 94640; 96374; 97110; 97116; 97161; 97166; 97530; 97535; 99285; A9270; J0696; J1815; J3475; J3480; J7030; J7040; J7512; Q9967

== ENCOUNTER 2025-06-05 15:13 | Emergency (ER) | payer OTHER, SELFPAY ==
--- OUTSIDE RECORDS SUMMARY | 2016-08-26 08:00 | XMS_ITS | Continuity of Care Document ---
Author Organization [facility] Address [address] [place] [address] Phone Care Team Providers Care Business Development Coordinator Name Role Phone Chris Kingsley MD Unavailable Unavailable Advance Directives Directive Yes / No Effective Date File Name No Information Encounters Encounter Description Practice Location Reason(s) For Visit Diagnoses Date Provider Providers Copied on Encounter [facility], [address], [place], [place], [address], [place] tel:[phone] [facility] No Information Sancho Perez. [address] , [place], [place], [id number], [place]. tel:[phone] Referring Provider: Riky Sherman, [address], [place], [address]. tel:[phone] Family History Family Member Type Diagnosis Age At Onset No Information Payers Payer name Insurance type Covered democrat ID Authoriza tion(s) AETNA MDCR ADVANTRA HMO POS [place] [id number] Social History Type Description Quantity Date Captured [...]
--- OUTSIDE RECORDS SUMMARY | 2016-08-26 08:00 | XMS_ITS | Continuity of Care Document ---
Author Organization [facility] Address [address] [place] [address] Phone Care Team Providers Care Body Maker Machine Setter Name Role Phone Chris Kingsley MD Unavailable Unavailable Advance Directives Directive Yes / No Effective Date File Name No Information Encounters Encounter Description Practice Location Reason(s) For Visit Diagnoses Date Provider Providers Copied on Encounter [facility], [address], [place], [place], [address], [place] tel:[phone] [facility] No Information Sancho Perez. [address] , [place], [place], [address], [place]. tel:[phone] Referring Provider: Riky Sherman, [address], [place], [address]. tel:[phone] Family History Family Member Type Diagnosis Age At Onset No Information Payers Payer name Insurance type Covered libertarian ID Authoriza tion(s) AETNA MDCR ADVANTRA HMO POS [place] [id number] Social History Type Description Quantity Date Captured [...]
[2025-06-05 15:16] VITALS: BP 145/98; PULSE 113; RESP 20; TEMP 36.6; O2SAT 97
--- NOTE | 2025-06-05 15:20 | ECG_ITS ---
Test Date: 2025-06-05 15:22:58 Measurements Intervals [place] Rate: 92 P: 0 MI: 0 QRS: -54 QRSD: 125 T: 26 QT: 370 QTc: 460 Interpretive Statements SINUS RHYTHM WITH ATRIAL PREMATURE COMPLEX CHANGES TO ATRIAL TACHYCARDIA RIGHT BUNDLE BRANCH BLOCK LEFT ANTERIOR FASCICULAR BLOCK BASELINE ARTIFACT- I, II, III, AVR, AVL, AVF ABNORMAL ECG Compared to ECG 04/27/2025 11:23:16 Sinus rhythm no longer present Electronically Signed On 06-05-2025 16:16:23 CDT by Miky Sorensen D.O.
--- NOTE | 2025-06-05 15:20 | ED.WEAKNESS ---
HPI - Weakness General Chief complaint: Weakness <Yannick Murphy APRN - Last Filed: 06/05/25 15:22> Stated complaint: weakness <Yannick Murphy APRN - Last Filed: 06/05/25 15:22> Time Seen by Provider: 06/05/25 16:22 <Yannick Murphy APRN - Last Filed: 06/05/25 15:22> Focused HPI: 75-year-old female history of COPD, DM T2, HLD, HTN presents ER complaining of worsening generalized weakness. Patient states she was seen here 1 month ago for weakness and multiple falls and neck pain. States she was admitted here for several days and then transferred over to [facility] for neuro surgery consult. Patient states her weakness is progressively worse over the past couple of days. Wears oxygen 2 L GENERAL: ill-appearing, well-nourished, and in no acute distress. HEAD: Normocephalic, atraumatic. CHEST: Clear to auscultation. No respiratory distress. HEART: Regular rate and rhythm. NEURO: Alert and oriented x3. Patient screened in triage and initial orders placed. Additional care and disposition to be based upon diagnostic testing and treatment. <Yannick Murphy APRN - Last Filed: 06/05/25 15:22> Source: patient and family <Darrel Watson MD - Last Filed: 06/05/25 19:59> Limitations: no limitations <Darrel Watson MD - Last Filed: 06/05/25 19:59> History of Present Illness HPI Narrative: 75-year-old with a history of hypertension, diabetes, COPD here with the complaints of worsening of lower extremity weakness. Patient states that she usually walks with a walker and today she is unable to walk he did she also states that she is having neck issues and is following with Neurosurgery. She denies any fever or chills. <Darrel Watson MD - Last Filed: 06/05/25 19:59> MD Complaint: difficulty walking <Darrel Watson MD - Last Filed: 06/05/25 19:59> Onset (ago): month(s) <Darrel Watson MD - Last Filed: 06/05/25 19:59> Duration: constant <Darrel Watson MD - Last Filed: 06/05/25 19:59> Location: LLE and RLE <Darrel Watson MD - Last Filed: 06/05/25 19:59> Severity: moderate <Darrel Watson MD - Last Filed: 06/05/25 19:59> Relieving factors: none <Darrel Watson MD - Last Filed: 06/05/25 19:59> Exacerbating factors: none <Darrel Watson MD - Last Filed: 06/05/25 19:59> Associated symptoms: denies other symptoms <Darrel Watson MD - Last Filed: 06/05/25 19:59> Related Data Home medications: Home Medications ?Medication ?Instructions ?Recorded ?Confirmed ?Last Taken ?Type leflunomide 20 mg tablet 20 mg PO HS 07/04/19 04/27/25 04/26/25 History omega 8-nir-vwx-fish oil 100 2 cap PO .q12hr 06/12/23 04/27/25 04/26/25 History mg-160 mg-1,000 mg capsule (Fish Oil) sotalol 80 mg tablet 80 mg PO Q12H 04/27/25 04/27/25 04/26/25 History <Yannick Murphy, VICE PRESIDENT PAYER - Last Filed: 06/05/25 15:22> Allergies/Adverse reactions: Allergies Allergy/AdvReac Type Severity Reaction Status Date / Time ciprofloxacin Allergy Mild Unknown Verified 06/05/25 16:43 codeine Allergy Mild Vomiting Verified 06/05/25 16:43 levofloxacin Allergy Unknown Unknown Verified 06/05/25 16:43 lisinopril Allergy Unknown Unknown Verified 06/05/25 16:43 amoxicillin (From Augmentin) AdvReac Severe Confusion Verified 06/05/25 16:43 clavulanic acid (From AdvReac Severe Confusion Verified 06/05/25 16:43 Augmentin) tramadol AdvReac Mild Vomiting Verified 06/05/25 16:43 <Yannick Murphy, VICE PRESIDENT PAYER - Last Filed: 06/05/25 15:22> Review of Systems Review of Systems: All systems reviewed & are unremarkable except as noted in HPI and below <Darrel Watson MD - Last Filed: 06/05/25 19:59> Constitutional: Constitutional: Reports no additional constitutional complaints <Drarel Watson MD - Last Filed: 06/05/25 19:59> Eyes: Eyes: Reports no additional eye complaints <Darrel Watson MD - Last Filed: 06/05/25 19:59> ENT: Reports system reviewed and no additional complaints, except as documented <Darrel Watson MD - Last Filed: 06/05/25 19:59> Cardiovascular: Cardiovascular: Reports no additional cardiovascular complaints <Darrel Watson MD - Last Filed: 06/05/25 19:59> Respiratory: Respiratory: Reports no additional respiratory complaints <Darrel Watson MD - Last Filed: 06/05/25 19:59> Gastrointestinal: Gastrointestinal: Reports no additional gastrointestinal complaints <Darrel Watson MD - Last Filed: 06/05/25 19:59> Genitourinary: Genitourinary: Reports no additional female genitourinary complaints <Darrel Watson MD - Last Filed: 06/05/25 19:59> Musculoskeletal: Musculoskeletal: Reports as per HPI <Darrel Watson MD - Last Filed: 06/05/25 19:59> Neurologic: Reports system reviewed and no additional complaints, except as documented <Darrel Watson MD - Last Filed: 06/05/25 19:59> Psychiatric: Psychiatric: Reports no additional psychiatric complaints <Darrel Watson MD - Last Filed: 06/05/25 19:59> PMFSH Past Medical History Medical History: Medical History (Updated 06/05/25 @ 18:35 by Darrel Watson MD) Preop cardiovascular exam Chronic obstructive pulmonary disease, unspecified Hard of hearing Eustachian tube dysfunction Cubital tunnel syndrome on right Pulmonary hypertension Chronic idiopathic myocarditis Restless leg syndrome 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 Chronic respiratory failure with hypoxia, on home oxygen therapy Transient ischemic attack Chronic hyponatremia Venous insufficiency Iron deficiency anemia Polymyalgia rheumatica Small vessel disease, cerebrovascular Chronic anticoagulation Paroxysmal atrial fibrillation Coronary artery disease Microscopic colitis Chronic diarrhea Exocrine pancreatic insufficiency COVID-19 Cervical arthritis Pneumonia Dyslipidemia Essential hypertension Gastro-esophageal reflux disease without esophagitis Multifocal atrial tachycardia <Yannick Murphy APRN - Last Filed: 06/05/25 15:22> Surgical History Surgical History: Surgical History History of heart artery stent History of cardiac catheterization History of bilateral knee replacement History of bilateral carpal tunnel release History of colonoscopy with polypectomy History of coronary artery bypass graft x 2 (12/2013) History of Achilles tendon repair History of spinal surgery Lumbar micro discectomy infusion. History of mitral valve repair History of shoulder surgery History of cataract extraction Left History of hand surgery trigger finger, thumb <Yannick Murphy APRN - Last Filed: 06/05/25 15:22> Family History Family History: Family History Mother Cerebrovascular accident Family history of diabetes mellitus in first degree relative Family history of coronary artery disease Acute myocardial infarction Diabetes mellitus Father Carcinoma of colon Family history of lung cancer Family history of malignant neoplasm of esophagus Sibling Liver disease Liver transplant recipient Other Family history of malignant neoplasm of brain Family history of malignant neoplasm of stomach <Yannick Murphy APRN - Last Filed: 06/05/25 15:22> Social History Social History: Social History Social History: Surrogate medical decision maker: Filippo Clifford, spouse. Code status: Full code. Smoking status: Never smoker Second hand tobacco smoke exposure: Yes Alcohol intake: current Drinks per week: 1 Alcohol use details: Rare alcohol use in moderation. Substance use: never Substance use type: does not use Do You Feel Safe in your Home?: Yes Lack of Transportation: No Lack of Food: Never True Current Housing: I Have Housing Concerned About Future Housing: No Difficulty Paying Gas/Electric Bills: No Difficulty Paying for Meds: No Currently Unemployed: No Education: High School Diploma/GED Difficulty w/ Childcare or Family Care: No Living arrangements: with family Additional living arrangements comments: Lives in [facility]. Occupation/Education: retired Additional occupation/education comments: Worked in [employer]. Spiritual care concerns: No <Yannick Murphy APRN - Last Filed: 06/05/25 15:22> Exam Narrative: GENERAL: Well-appearing, well-nourished, and in no acute distress. HEAD: Normocephalic, atraumatic. EYES: PERRLA and EOMI. ENT: Nares clear, no rhinorrhea or epistaxis. Mucous membranes moist. NECK: Supple. CHEST: Clear to auscultation. No respiratory distress. HEART: Regular rate and rhythm. No murmur heard. Normal peripheral pulses. ABDOMEN: Soft, nontender, nondistended, normal active bowel sounds. EXTREMITIES: Normal range of motion. Has 2+ edema. SKIN: Warm, dry, no rash. NEURO: No focal deficits. Alert and oriented x3. PSYCH: Normal mood and affect. <Darrel Watson MD - Last Filed: 06/05/25 19:59> Course Course Emergency Course: Notified patient and about the lab work. This weakness seems to be ongoing and offered admission to be placed in the longterm however patient declined she was evaluated by case management as well. They would like to follow-up with their primary doctor <Darrel Watson MD - Last Filed: 06/05/25 19:59> Vital Signs Vital signs: Vital Signs Temperature 36.6 C 06/05/25 15:16 Pulse Rate 113 H 06/05/25 15:16 Respiratory Rate 20 06/05/25 15:16 Blood Pressure 145/98 H 06/05/25 15:16 Pulse Oximetry 97 06/05/25 15:16 Oxygen Delivery Nasal Cannula 06/05/25 15:16 Oxygen Flow Rate 2 06/05/25 15:16 Temperature 36.6 C 06/05/25 15:16 Pulse Rate 108 H 06/05/25 18:45 Respiratory Rate 16 06/05/25 18:45 Blood Pressure 117/90 06/05/25 18:45 Pulse Oximetry 96 06/05/25 18:45 Oxygen Delivery Nasal Cannula 06/05/25 15:16 Oxygen Flow Rate 2 06/05/25 15:16 <Yannick Murphy APRN - Last Filed: 06/05/25 15:22> Vital Signs Temperature 36.6 C 06/05/25 15:16 Pulse Rate 113 H 06/05/25 15:16 Respiratory Rate 20 06/05/25 15:16 Blood Pressure 145/98 H 06/05/25 15:16 Pulse Oximetry 97 06/05/25 15:16 Oxygen Delivery Nasal Cannula 06/05/25 15:16 Oxygen Flow Rate 2 06/05/25 15:16 Temperature 36.6 C 06/05/25 15:16 Pulse Rate 108 H 06/05/25 18:45 Respiratory Rate 16 06/05/25 18:45 Blood Pressure 117/90 06/05/25 18:45 Pulse Oximetry 96 06/05/25 18:45 Oxygen Delivery Nasal Cannula 06/05/25 15:16 Oxygen Flow Rate 2 06/05/25 15:16 <Darrel Watson MD - Last Filed: 06/05/25 19:59> MDM - Weakness MDM Narrative Medical decision making narrative: Electrolyte imbalance progressive neuropathy. <Darrel Watson MD - Last Filed: 06/05/25 19:59> Differential Diagnosis Differential diagnosis: Likely other (Lower extremity weakness,) <Darrel Watson MD - Last Filed: 06/05/25 19:59> Medical Records Attestation: I reviewed the patient's medical records. <Darrel Watson MD - Last Filed: 06/05/25 19:59> Lab Data Attestation: I reviewed the patient's lab results. <Darrel Watson MD - Last Filed: 06/05/25 19:59> Result diagrams: 06/05/25 16:08 06/05/25 16:08 <Yannick Murphy APRN - Last Filed: 06/05/25 15:22> Labs: Lab Results 06/05/25 06/05/25 Range/Units 16:08 17:02 WBC 8.3 (4.5-10.0) K/mm3 RBC 4.33 (4.2-5.4) M/mm3 Hgb 12.0 (12.0-15.0) g/dL Hct 38.2 (37.0-47.0) % MCV 88.2 (80-100) fl MCH 27.7 (26-34) pg MCHC 31.4 L (32-36) g/dl RDW 15.9 H (11.5-14.5) % Plt Count 319 (150-375) k/mm3 MPV 11.1 H (7.4-10.4) fl Immature Gran % (Auto) 0.7 H (0-0.5) % Neut % (Auto) 63.6 (45.5-73.1) % Lymph % (Auto) 14.9 L (18.3-44.2) % [place] % (Auto) 15.2 H (2.6-8.5) % Eos % (Auto) 4.5 H (0-4.4) % Baso % (Auto) 1.1 (0.2-1.2) % Lymph # (Auto) 1.23 (0.9-3.2) K/mm3 [place] # (Auto) 1.3 H (0.1-0.6) K/mm3 Eos # (Auto) 0.4 H (0-0.3) K/mm3 Baso # (Auto) 0.1 (0.0-0.1) K/mm3 Abs Immat Gran (auto) 0.06 H (0.00-0.031) K/mm3 Absolute Neuts (auto) 5.3 (1.3-6.7) K/mm3 Absolute Nucleated RBC 0.000 (0.0-0.012) K/mm3 Nucleated RBC % 0.0 (0.0-0.2) % Sodium 132 L (137-145) mmol/L Potassium 3.1 L (3.4-5.0) mmol/L Chloride 94 L (98-107) mmol/L Carbon Dioxide 35 H (22-30) mmol/L Anion Gap 3 L (4-12) mmol/L BUN 19 H (7-17) mg/dL Creatinine 1.06 H (0.7-1.0) mg/dL Estim Creat Clear Calc 39 ml/min Estimated GFR 51 L (59 - ) Glucose 101 (65-110) mg/dL Calcium 12.0 H (8.4-10.2) mg/dL Magnesium 1.8 (1.6-2.3) mg/dL Total Bilirubin 0.6 (0.2-1.3) mg/dL AST 30 (14-36) U/L ALT 21 (6-35) U/L Alkaline Phosphatase 292 H (38-126) U/L NT-Pro-B Natriuret Pep 1040 H (19.9-100) pg/mL Total Protein 6.8 (6.3-8.2) g/dL Albumin 3.5 (3.5-5.1) g/dL Urine Color Yellow (Yellow) Urine Appearance Clear (Clear) Urine pH 6.5 (5.0-9.0) Ur Specific [place] 1.013 (1.001-1.035) Urine Protein Negative (Negative) mg/dL Urine Glucose (UA) Negative (Negative) mg/dL Urine Ketones Negative (Negative) mg/dL Ur Blood (Man) Negative (Negative) Urine Nitrate Negative (Negative) Urine Bilirubin Negative (Negative) Urine Urobilinogen 0.2 (<2.0) mg/dL Leukocyte Esterase Rfl Negative (Negative) CHANO/UL <Yannick Murphy, VICE PRESIDENT PAYER - Last Filed: 06/05/25 15:22> Lab Results 06/05/25 06/05/25 Range/Units 16:08 17:02 WBC 8.3 (4.5-10.0) K/mm3 RBC 4.33 (4.2-5.4) M/mm3 Hgb 12.0 (12.0-15.0) g/dL Hct 38.2 (37.0-47.0) % MCV 88.2 (80-100) fl MCH 27.7 (26-34) pg MCHC 31.4 L (32-36) g/dl RDW 15.9 H (11.5-14.5) % Plt Count 319 (150-375) k/mm3 MPV 11.1 H (7.4-10.4) fl Immature Gran % (Auto) 0.7 H (0-0.5) % Neut % (Auto) 63.6 (45.5-73.1) % Lymph % (Auto) 14.9 L (18.3-44.2) % [place] % (Auto) 15.2 H (2.6-8.5) % Eos % (Auto) 4.5 H (0-4.4) % Baso % (Auto) 1.1 (0.2-1.2) % Lymph # (Auto) 1.23 (0.9-3.2) K/mm3 [place] # (Auto) 1.3 H (0.1-0.6) K/mm3 Eos # (Auto) 0.4 H (0-0.3) K/mm3 Baso # (Auto) 0.1 (0.0-0.1) K/mm3 Abs Immat Gran (auto) 0.06 H (0.00-0.031) K/mm3 Absolute Neuts (auto) 5.3 (1.3-6.7) K/mm3 Absolute Nucleated RBC 0.000 (0.0-0.012) K/mm3 Nucleated RBC % 0.0 (0.0-0.2) % Sodium 132 L (137-145) mmol/L Potassium 3.1 L (3.4-5.0) mmol/L Chloride 94 L (98-107) mmol/L Carbon Dioxide 35 H (22-30) mmol/L Anion Gap 3 L (4-12) mmol/L BUN 19 H (7-17) mg/dL Creatinine 1.06 H (0.7-1.0) mg/dL Estim Creat Clear Calc 39 ml/min Estimated GFR 51 L (59 - ) Glucose 101 (65-110) mg/dL Calcium 12.0 H (8.4-10.2) mg/dL Magnesium 1.8 (1.6-2.3) mg/dL Total Bilirubin 0.6 (0.2-1.3) mg/dL AST 30 (14-36) U/L ALT 21 (6-35) U/L Alkaline Phosphatase 292 H (38-126) U/L NT-Pro-B Natriuret Pep 1040 H (19.9-100) pg/mL Total Protein 6.8 (6.3-8.2) g/dL Albumin 3.5 (3.5-5.1) g/dL Urine Color Yellow (Yellow) Urine Appearance Clear (Clear) Urine pH 6.5 (5.0-9.0) Ur Specific [place] 1.013 (1.001-1.035) Urine Protein Negative (Negative) mg/dL Urine Glucose (UA) Negative (Negative) mg/dL Urine Ketones Negative (Negative) mg/dL Ur Blood (Man) Negative (Negative) Urine Nitrate Negative (Negative) Urine Bilirubin Negative (Negative) Urine Urobilinogen 0.2 (<2.0) mg/dL Leukocyte Esterase Rfl Negative (Negative) CHANO/UL <Darrel Watson MD - Last Filed: 06/05/25 19:59> ECG Data EKG #1: EKG Interpretation: normal rate (92), no ectopy, normal QRS and RBBB <Darrel Watson MD - Last Filed: 06/05/25 19:59> Discharge Plan Discharge Clinical Impression: Leg weakness, bilateral <Yannick Murphy APRN - Last Filed: 06/05/25 15:22> Patient Disposition: Home <Yannick Murphy APRN - Last Filed: 06/05/25 15:22> Condition: Stable <Yannick Murphy APRN - Last Filed: 06/05/25 15:22> Instructions: Weakness (ED) <Yannick Murphy APRN - Last Filed: 06/05/25 15:22> Additional Instructions: continue home medications, follow with your doctor , fall precautions <Yannick Murphy APRN - Last Filed: 06/05/25 15:22> Patient Language: Citizen Of [place] <Yannick Murphy APRN - Last Filed: 06/05/25 15:22> Prescriptions: No Action leflunomide 20 mg tablet 20 mg PO HS Fish Oil 100-160-1,000 mg capsule 2 cap PO .q12hr albuterol sulfate 90 mcg/actuation HFA aerosol inhaler 2 inh inhalation Q6H PRN (Reason: shortness of breath or wheezing) Qty: 8.5 2RF Rx Instructions: If tachycardia, use with caution. Repatha SureClick 140 mg/mL pen injector 140 mg subcut .every 2 weeks Qty: 2 11RF mirtazapine 7.5 mg tablet 7.5 mg PO QHS Qty: 30 0RF sotalol 80 mg tablet 80 mg PO Q12H arformoterol 15 mcg/2 mL solution for nebulization See Rx Instructions .ROUTE .COMPLEX Qty: 30 11RF Dose Instruction: USE 1 VIAL IN NEBULIZER DAILY Rx Instructions: USE 1 VIAL IN NEBULIZER DAILY metoprolol tartrate 25 mg tablet See Rx Instructions .ROUTE .COMPLEX Qty: 180 2RF Dose Instruction: TAKE 1 TABLET BY MOUTH TWICE A DAY Rx Instructions: TAKE 1 TABLET BY MOUTH TWICE A DAY Xarelto 20 mg tablet See Rx Instructions .ROUTE .COMPLEX Qty: 30 5RF Dose Instruction: TAKE 1 TABLET BY MOUTH EVERY DAY MUST ADMINISTER WITH EVENING MEAL Rx Instructions: TAKE 1 TABLET BY MOUTH EVERY DAY MUST ADMINISTER WITH EVENING MEAL furosemide 40 mg tablet See Rx Instructions .ROUTE .COMPLEX Qty: 90 2RF Dose Instruction: TAKE 1 TABLET BY MOUTH EVERY DAY Rx Instructions: TAKE 1 TABLET BY MOUTH EVERY DAY pravastatin 10 mg tablet See Rx Instructions .ROUTE .COMPLEX Qty: 90 2RF Dose Instruction: TAKE 1 TABLET BY MOUTH EVERY DAY Rx Instructions: TAKE 1 TABLET BY MOUTH EVERY DAY tirzepatide 5 mg/0.5 mL pen injector 5 mg subcut WEEKLY Qty: 2 2RF Rx Instructions: thursday pramipexole 0.5 mg tablet 0.5 mg PO HS Qty: 90 1RF pantoprazole 40 mg tablet,delayed release (DR/EC) 40 mg PO QAM Qty: 90 3RF Pokonza 10 mEq packet 10 meq PO DAILY Qty: 30 0RF diphenoxylate-atropine [Lomotil] 2.5-0.025 mg tablet 1 tablet PO TID PRN (Reason: diarrhea) Qty: 20 0RF metformin 500 mg tablet extended release 24 hr 1,000 mg PO QPM Qty: 90 0RF Rx Instructions: afternoon <Yannick Murphy APRN - Last Filed: 06/05/25 15:22> Follow-up/Referrals: Parminder Rojas MD [Primary Care Provider, Family Practice] <Yannick Murphy APRN - Last Filed: 06/05/25 15:22> Time of Disposition: 18:35 <Yannick Murphy APRN - Last Filed: 06/05/25 15:22> 18:35 <Darrel Watson MD - Last Filed: 06/05/25 19:59>
--- OUTSIDE RECORDS SUMMARY | 2025-06-05 15:49 | XMS_ITS | Encounter Summary ---
Author Organization [facility] Health Address [address] [place] [address] Care Team Providers Care Director Treasurer Name Role Phone Filippo Carpenter MD Unavailable [phone] Encounter Details Date Type Department Care Team (Late st Contact Info) Description 01/27/2019 Lab Requisition [facility] [address] [facility] [place] [address] Bettina Espino DO [address] [facility] [facility] [address] [place] [address] Social History Tobacco Use Types Packs/Day Years Used Date Smoking Tobacco: Never Alcohol Use Standard Drinks/Week Comments No 0 (1 standard drink = 0.6 oz pur e alcohol) Comments No Sex and Gender Information Value Date Recorded Sex Assigned at Not on file Legal Sex Female 6:12 AM RN PHYSICIAN OFFICE Gender Identity Not on file Sexual Orientation Not on file documented as of this encounter Plan of Treatment Not on file documented as of this encounter Procedures Procedure Name Priority Date/Time Associated Diagnosis Comments DERMATOPATHOLOGY Routine 01/26/2019 12:0 0 AM CDT documented in this encounter Results * DERMATOPATHOLOGY (01/26/2019 12:00 AM CDT) Case Report Dermatopathology Report Case: [id number] Authorizing Provider: Bettina Espino DO Collected: 01/26/2019 [...] The specimen consists of a shave measuring [id number]. Jar 0. 12:24 PM CDT DERMATOPATHOLOGY LABORATORY [...] characteristic determined by the Dermatopathology Laboratory at [facility], directed by Dr. Krys Villagran. These tests need not be, and therefore are not, approved by the [place] Food and Drug Administration. The tests are used for clinical purposes. Billing Codes Specimen Charges Stain Charges 15392 1 12:24 PM CDT DERMATOPATHOLOGY LABORATORY Embedded Images 12:24 PM CDT DERMATOPATHOLOGY LABORATORY Pathology/Cytolog y TISSUE SPECIMEN FROM SKIN / Unknown 01/26/2019 01/27/2019 10:42 AM CDT Bettina Espino DO LAB - PATHOLOGY/CYTOLOGY ORDERABLES Final Result DERMATOPATHOLOGY LABORATORY [facility] - Department of Dermatology [address] [place] [address], [address]th Floor Lab [address] [phone] documented in this encounter Visit Diagnoses Not on filedocumented in this encounter Care Teams Director Treasurer Relationship Specialty Start Date End Date Filippo Carpenter MD Physician Rheumatology 08/10/11 documented as of this encounter
--- OUTSIDE RECORDS SUMMARY | 2025-06-05 15:49 | XMS_ITS | Clinical Summary ---
Author Organization [facility] Address [address] [place] [address] Care Team Providers Care Daycare Teacher Name Role Phone Parminder Rojas MD Primary Care Provider [phone] Allergies Active Allergy Reactions Criticality Noted Date [...] 2 - PCV20 or PCV21) 08/20/2021 08/20/2020 INFLUENZA VACCINE (#1) 2025 0, 06/08/2018, 06/22/2017, Additional history exists COVID-19 Vaccine (3 - 2024-2 6 season) 2025 12/20/2020, 11/29/2020 RSV VACCINE (60+ or ) (1 - 1-dose 75+ series) 02/12/[address] [place] [address] [employer] PPO MCR Care Teams Daycare Teacher Relationship Specialty Start Date End Date Parminder Rojas MD [address] [place] [id number] PCP - General Family Practice 02/04/22
--- OUTSIDE RECORDS SUMMARY | 2025-06-05 15:49 | XMS_ITS | Encounter Summary ---
Author Organization [facility] Health Address [address] [place] [address] Care Team Providers Care Paper Ruler Name Role Phone Filippo Carpenter MD Unavailable [phone] Encounter Details Date Type Department Care Team (Late st Contact Info) Description 07/19/2020 Lab Requisition [facility] [address] [facility] [place] [address] Zora Gilmore MD [address] [facility] [address] [place] [address] Social History Tobacco Use Types Packs/Day Years Used Date Smoking Tobacco: Never Alcohol Use Standard Drinks/Week Comments No 0 (1 standard drink = 0.6 oz pur e alcohol) Comments No Sex and Gender Information Value Date Recorded Sex Assigned at Not on file Legal Sex Female 6:12 AM OFFICE CORRESPONDENT Gender Identity Not on file Sexual Orientation Not on file documented as of this encounter Plan of Treatment Not on file documented as of this encounter Procedures Procedure Name Priority Date/Time Associated Diagnosis Comments DERMATOPATHOLOGY Routine 07/18/2020 12:0 0 AM OFFICE CORRESPONDENT documented in this encounter Results * DERMATOPATHOLOGY (07/18/2020 12:00 AM OFFICE CORRESPONDENT) Case Report Dermatopathology Report Case: [id number] Authorizing Provider: Zora Gilmore MD Collected: 07/18/2020 12:00 AM Ordering Location: [facility] Received: 07/19/2020 05:55 AM Pathologist: Miranda Brennan MD Specimen: Skin, nose tip 0 7:17 PM [facility] DERMATOPATHOLOGY LABORATORY Final Diagnosis Specimen A. SKIN, nose tip: ACTINIC KERATOSIS (L57.0) (see microscopic description) 0 7:17 PM [facility] DERMATOPATHOLOGY LABORATORY at [address] [facility] Clinical History R/O BCC,AK 0 7:17 PM [facility] DERMATOPATHOLOGY LABORATORY Gross Description Specimen A: Received is one formalin filled container labeled with the patient's name and designated nose tip. The specimen consists of a shave biopsy measuring 3x3x1 mm. Jar 0. 0 7:17 PM [facility] DERMATOPATHOLOGY LABORATORY Microscopic Description Specimen A. SKIN, nose tip: There is focal parakeratosis. The lower half of the epidermis shows disorderly maturation of keratinocytes with nuclear pleomorphism. Additional deeper sections were obtained and reviewed. 0 7:17 PM [facility] DERMATOPATHOLOGY LABORATORY Disclaimer An external and internal positive and negative controls are appropriate for the histochemical, immunohistochemical and immunofluorescence stain(s) in this case (if any), except where stated explicitly. The performance characteristics of the stain(s) cited in this report were developed and its performance characteristic determined by the Dermatopathology Laboratory at [facility], directed by Dr. Krys Villagran. These tests need not be, and therefore are not, approved by the [place] Food and Drug Administration. The tests are used for clinical purposes. Billing Codes Specimen Charges Stain Charges 57720 1 0 7:17 PM OFFICE CORRESPONDENT DERMATOPATHOLOGY LABORATORY Embedded Images 0 7:17 PM [facility] DERMATOPATHOLOGY LABORATORY Pathology/Cytolog y TISSUE SPECIMEN FROM SKIN / Unknown 07/18/2020 07/19/2020 5:55 AM [facility] us Zora Gilmore MD LAB - PATHOLOGY/CYTOLOGY ORD ERABLES Final Result DERMATOPATHOLOGY LABORATORY [facility] - Department of Dermatology [address], [address] [phone] documented in this encounter Visit Diagnoses Not on filedocumented in this encounter Care Teams Paper Ruler Relationship Specialty Start Date End Date Filippo Carpenter MD Physician Rheumatology 08/10/11 documented as of this encounter
--- OUTSIDE RECORDS SUMMARY | 2025-06-05 15:49 | XMS_ITS | Data Portability ---
Author Organization [place] [facility], Main Office Address [address] [place] [address] Care Team Providers Care Radio News Anchor Name Role Phone TERRENCE HOWELL Primary Care [...] 2020 021 HANSEL Guevara MD, [address] [facility], [place], [address], 18:22:55 Procedures None recorded. Surgeries None recorded. Imaging None recorded. Medication Orders None recorded. Patient TargetsNo targets recorded. Patient Instructions Encounter Date Encounter Id Patient Instructions Last Modified By Organization Details Last Modified Time 02/06/2021 [id number] She will follow up with the C&R surgeon as above. On today's visit I spent a total of 40 minutes [id number] with her and her , arranging for [...] Details Recorded Time Pile reducible with difficulty 652469937 Active 2020 Ayde Peña MD [address] [place] [address],[place] [address], [facility] [place], [facility] [place] 1 15:55:09 External hemorrhoids 01182941 Active 2020 Ayde Peña MD [address] [place] [address],[place] [address], [facility] [place] 1 16:01:01 History of placement of stent for coronary artery disease 665977226 Active 2020 Ayde Peña MD [address] [place] [address],[place] [address], [facility] [place] 1 16:01:39 Rheumatoid arthritis 54615972 Active 2020 Ayde Peña MD [address] [place] [address], [facility] [place] 1 16:03:39 Essential hypertension 18420246 Active 2020 Ayde Peña MD [address] [place] [address], [facility] [place] [place] 1 16:04:08 Family history of cancer of colon 978432810 Active 2020 Ayde Peña MD [address] [place] [address], [facility] [place] [place] 1 16:04:10 Gastroesophage al reflux disease without esophagitis 078106957 Active 2020 Ayde Peña MD [address] [place] [address], [facility] [place] 1 16:06:21 Chronic obstructive pulmonary disease 10122391 Active 2020 Ayde Peña MD [address] [facility], [place], [address], [facility] 16:06:46 Problem Notes None recorded. Procedures Surgical History Date Name Laterality Status Provider Name and Address Organization Details Recorded Time 02/07/20 21 Anoscopy completed Ayde Peña MD [address] [facility],[address], [place], [address], [facility] 02/06/2021 15:22:11 07/01/20 20 excision of skin carcinoma completed [facility] 02/06/2021 12:01:02 08/31/19 19 Date of Last Mammogram completed [facility] 02/06/2021 12:01:37 07/31/20 18 Colonoscopy completed [facility] 02/06/2021 11:42:55 12/30/19 18 release of trigger finger completed [facility] 02/06/2021 11:59:54 12/30/19 18 arthroplasty of joint of the thumb completed [facility] 02/06/2021 12:00:17 05/01/20 17 extraction of cataract completed [facility] 02/06/2021 11:59:34 03/31/20 17 extraction of cataract completed [facility] 02/06/2021 11:59:14 12/30/19 17 lumbar spinal fusion completed [facility] 02/06/2021 11:58:27 04/10/20 16 total shoulder replacement completed [facility] 02/06/2021 11:58:04 02/28/20 14 repair of mitral valve completed [facility] 02/06/2021 11:57:27 11/30/19 14 placement of stent in circumflex branch of left coronary artery completed [facility] 02/06/2021 11:57:43 11/30/19 14 placement of stent in coronary artery completed Ayde Peña [place] [address] [place] [address],[address], [place], [address], [facility] 02/06/2021 15:09:43 05/01/20 12 repair of tendo achilles completed [facility] 02/06/2021 11:57:06 07/01/20 11 primary lumbar discectomy completed [facility] 02/06/2021 11:56:15 11/30/19 10 hammer toe operation completed [facility] 02/06/2021 11:56:34 01/30/20 08 primary lumbar discectomy completed Emelykrys Brennan [facility] 02/06/2021 11:44:01 11/30/19 08 Carpal tunnel surgery completed Emelykrys Brennan [facility] 02/06/2021 11:43:40 07/01/20 07 total knee replacement completed Emelykrys Brennan [facility] 02/06/2021 11:43:22 01/30/20 07 Carpal tunnel surgery completed Emely Brennan [facility] 02/06/2021 11:43:32 10/01/19 07 total knee replacement completed Emely Brennan [facility] 02/06/2021 11:43:11 02/12/19 57 Tonsillectomy completed Ayde Peña MD [address] [place] [address],[address], [place], [address], [facility] 02/06/2021 15:10:41 Imaging Results None recorded. Procedure Notes None recorded. Medical Equipment None Reported. Allergies Allergen ID Allergen Name Allergen Category Reaction Reaction Severity Criticality Documentation Date Start Date Code Code System Note Provider Name and Address Organization Details Recorded Time 4124 codeine medicatio n Not available Not available Not available 02/06/2021 3074 RxNorm [facility] Brennan [facility] 11:35:42 Medications Name Sig Start Date Stop [...] Updated DateTime 02/06/2021 97 [degF] Emely [facility] [place] 02/06/2021 11:35:23 Social History Question Answer Notes LastModified by Organizat ion Details LastModified Time Tobacco Smoking Status Never Smoker Emely Brennan [facility] [place] 02/06/2021 11:42:13 Do You Have An Advance Directive? No Information not available 02/06/2021 Alcohol Use Yes [email or web address] Information n ot available 02/06/2021 Alcohol Amount Occasional [email or web address] Informatio n not available 02/06/2021 Caffeine Use Yes Information not available 02/06/2021 Caffeine Type Coffee [email or web address] Information not available 02/06/2021 Caffeine Amount 1 Cup [email or web address] Information not available 02/06/2021 Illicit Drug Use No [email or web address] Information not available 02/06/2021 What Was The Date Of Your Most Recent Tobacco Screening? 02/06/2021 Information not available 02/06/2021 Sex: Female Functional Status Question Answer Note LastModified by Organizat ion Details LastModified Time Do you or have you ever used smokeless tobacco? Never used smokeless tobacco [email or web address] Information not available 02/06/2021 Do you or have you ever used e-cigarettes or vape? Never used electronic cigarettes Information not available 02/06/2021 Mental Status None recorded. Family History Relationship Description Onset Age of this Age Resolved Age Notes LastModified by Organization Details LastModified Time Father Malignant neoplasm of colon 50 Not sure Not available 02/06/2021 14:00:19 Paternal Aunt Malignant neoplasm of stomach 60 [email or web address] Not available 2020 11:40:10 Mother Coronary arterioscler osis [email or web address] Not available 2020 11:41:07 Mother Cerebrovascu lar accident [email or web address] Not available 05/2021 11:40:37 Mother Diabetes mellitus [email or web address] Not available 2020 11:40:45 Medical History Condition Response Coronary Artery Disease Y Other Y Atrial Fibrillation N Kidney Stones N Hyperthyroidism N Hernia N Depression N COPD N Hypothyroidism N Glaucoma N Accidental Bowel Leakage Y Headaches/Migraines N Deep Vein Thrombosis N Cardiac Dysrhythmia N Anxiety Disorder N MRSA/VRE Exposure N Genital Herpes N Diverticulosis N Cancer N Stroke N Head Trauma N Crohn's Disease N Genital Warts N Liver Disease/Hepatitis N HIV/AIDS N High Cholesterol Y Irritable Bowel Syndrome N Kidney Disease N Autoimmune Disease N Anemia Y Celiac Disease N [...] Diagnosis SNOMED-CT Code Diagnosis ICD10 Code Diagnosis IMO Codes Diagnosis Note [id number] Ayde Peña MD Main Office [address] [place] [address] 02/06/2021 11:19:27 02/06/2021 13:09:00 Pile reducible with difficulty 722564302 K64.2 Stage 3 internal hemorrhoid s: She is bleeding fairly heavily and is on warfarin and 81 mg aspirin. I discussed hemorrhoid s in general with her as well as the treatment options. I do not think she would get correction good results with infrared coagulatio n and she has an increased risk of bleeding with every treatment given her blood thinners. I have referred her to [facility] and she has an appointmen t on 02/07/21 at [facility]. Pat has the contact informatio n. I advised that if she does become orthostati c or have CP/pressur e/worsenin g SOB/MERCER she needs to go to an ER. I have requested her blood work results from last week. External hemorrhoids 239 31658 K64.4 See above. History of placement of stent for coronary artery disease 117238747 Z95.5 She is on the warfarin and 81 mg aspirin. Rheumatoid arthritis 698 92237 M06.9 She is on the leflunomid e. Essential hypertension 70349735 I10 Family his tory of cancer of colon 483695744 Z80.0 Her father possibly had colon cancer and at the age of 50. I have requested copies of her last 2 colonoscop ies from her PCP's office. Gastroesop hageal reflux disease without esophagitis [id number] K21.9 Chronic ob structive pulmonary disease 79216494 J44.9 Health Concerns Section Related Observation LastModified by Organization Detai ls LastModified Time None Recorded Concern Status LastModified by Organization Details LastModified Time None Recorded Advance Directives Directive N: Payers Insurance Date Sequence Insurance Name Policy Number Policy Mccall Covered Member ID Mccall Member ID Guarantor Name 02/06/2021 1 [employer] (MEDICARE REPLACEMENT/ ADVANTAGE - HMO) [id number] Laura A Darrin [id number] Laura Krys Darrin Notes Date Note Type Note Provider Name and Address Organization Details Recorded Time 02/06/2021 text/html ROS as noted in the HPI This is a 70 year old woman (on chronic warfarin and 81 [...] multiple times daily. Ayde Peña MD [address] [facility],[address], [place], [address], [facility] 02/06/2021 16:10:16 OBGyn Episode No OBEpisode recorded.
--- OUTSIDE RECORDS SUMMARY | 2025-06-05 15:49 | XMS_ITS | Patient Health Record ---
Author Organization [facility] almita Address [address] [place] [address] Care Team Providers Care Assistant Dean Of Students Name Role Phone Sammie RONDON, Parminder Primary Care Provider Unavail able Filippo Jenkins Unavailable [phone] Allergies Allergen (clinical drug ingredient) Drug/Non Drug Allergy documented on EMR Reaction Allergy Type Onset Date Status Amoxicillin ER Unknown Drug Allergy Ac tive codeine Codeine Unknown Drug Allergy 11/05/2004 Active Results Component Value Reference Range Notes eGFR Reviewed date:12/01/2024 12:56:10 PM Interpretation: Performing Lab:[facility] , [address] [facility] [address] Notes/Report: eGFR 86 >=60 mL/min/1.73 m2 Interpretive [...] Automated Reviewed date:12/01/2024 12:56:18 PM Interpretation: Performing Lab:[facility] , [address] [facility] [place] [address] Notes/Report: Neut Abs 4.61 1.50-6.50 K/cumm ImmGran Abs 0.05 0.00-0.10 K/cumm Lymphocyte Abs 1.45 0.80-3.30 K/cumm Bent Abs 0.88 0.20-0.80 K/cumm Eos Abs 0.26 [...] Interpretive Data was last revised on 2017. Bent Pct 12.0 Interpretive Data Percent cell count [...] eGFR Reviewed date:09/03/2024 03:29:31 PM Interpretation: Performing Lab:[facility] , [address] [facility] [place] [address] Notes/Report: eGFR >90 >=60 mL/min/1.73 m2 Interpretive [...] Automated Reviewed date:09/03/2024 03:29:31 PM Interpretation: Performing Lab:[facility] , [address] [place] [address]. [place] [address] Notes/Report: Neut Abs 4.5 1.5-6.5 K/cumm ImmGran Abs 0.0 0.0-0.1 K/cumm Lymphocyte Abs 1.3 0.8-3.3 K/cumm Bent Abs 0.8 0.2-0.8 K/cumm Eos Abs 0.1 [...] Interpretive Data was last revised on 2017. Bent Pct 12.1 Interpretive Data Percent cell count [...] Panel Reviewed date:03/07/2025 04:43:01 PM Interpretation: Performing Lab:[facility] , [address] [facility] [place] [address] Notes/Report: Total Bilirubin 0.7 0.1-1.2 mg/dL Bilirubin, Direct 0.4 0.1-0.3 mg/dL Plasma Total Protein 6.5 6.5-8.5 g/dL Albumin 3.5 3.5-5.0 g/dL Alkaline Phosphatase 357 40-130 Units/L ALT 88 7-45 Units/L AST 78 10-45 Units/L Creatinine Reviewed date:03/04/2025 08:59:24 AM Interpretation: Performing Lab:[facility] , [address] [facility] [place] [address] Notes/Report: Creatinine 0.69 0.60-1.10 mg/dL CBC w auto diff Reviewed date:03/06/2025 08:07:52 AM Interpretation: Performing Lab:[facility] , [facility] [facility] [place] [address] Notes/Report: WBC 7.93 3.80-9.90 K/cumm Hgb 12.3 11.9-15.5 g/dL Hct 39.5 35.6-45.5 % Platelet Ct 268 150-400 K/cumm MPV 12.3 9.1-12.3 fL RBC 4.28 3.90-5.20 M/cumm MCV 92.3 81.3-96.4 fL MCH 28.7 27.1-33.3 pg MCHC 31.1 32.3-35.7 g/dL RDW CV 16.5 11.1-14.9 % RDW SD 53.5 35.7-48.1 fL NRBC Abs Auto 0.00 0.00-0.01 K/cumm Hep Func Panel Reviewed date:12/01/2024 12:55:55 PM Interpretation: Performing Lab:[facility] , [address] [place] [address] Notes/Report: Total Bilirubin 0.4 0.1-1.2 mg/dL Bilirubin, Direct 0.2 0.1-0.3 mg/dL Plasma Total Protein 6.4 6.5-8.5 g/dL Albumin 3.6 3.5-5.0 g/dL Alkaline Phosphatase 53 40-130 Units/L ALT 14 7-45 Units/L AST 17 10-45 Units/L Creatinine Reviewed date:12/01/2024 12:56:00 PM Interpretation: Performing Lab:[facility] , [address] [place] [address] Notes/Report: Creatinine 0.74 0.60-1.10 mg/dL CBC w auto diff Reviewed date:12/01/2024 12:56:05 PM Interpretation: Performing Lab:[facility] , [address] [place] [address] Notes/Report: WBC 7.33 3.80-9.90 K/cumm Hgb 13.0 11.9-15.5 g/dL Hct 40.6 35.6-45.5 % Platelet Ct 273 150-400 K/cumm MPV 11.9 9.1-12.3 fL RBC 4.41 3.90-5.20 M/cumm MCV 92.1 81.3-96.4 fL MCH 29.5 27.1-33.3 pg MCHC 32.0 32.3-35.7 g/dL RDW CV 14.8 11.1-14.9 % RDW SD 48.4 35.7-48.1 fL NRBC Abs Auto 0.00 0.00-0.01 K/cumm eGFR Reviewed date:03/04/2025 09:01:05 AM Interpretation: Performing Lab:[facility] , [address] [place] [address] Notes/Report: eGFR >90 >=60 mL/min/1.73 m2 Interpretive [...] Automated Reviewed date:03/04/2025 09:00:49 AM Interpretation: Performing Lab:[facility] , [address] [place] [address]. [facility] [address] Notes/Report: Neut Abs 4.90 1.50-6.50 K/cumm ImmGran Abs 0.05 0.00-0.10 K/cumm Lymphocyte Abs 1.39 0.80-3.30 K/cumm Bent Abs 1.04 0.20-0.80 K/cumm Eos Abs 0.45 [...] Interpretive Data was last revised on 2017. Bent Pct 13.1 Interpretive Data Percent cell count [...] Panel Reviewed date:09/03/2024 03:29:31 PM Interpretation: Performing Lab:[facility] , [address] [place] [address]. [facility] [address] Notes/Report: Total Bilirubin 0.4 0.1-1.2 mg/dL Bilirubin, Direct 0.2 0.1-0.3 mg/dL Plasma Total Protein 6.2 6.5-8.5 g/dL Albumin 4.1 3.5-5.0 g/dL Alkaline Phosphatase 50 40-130 Units/L ALT 16 7-45 Units/L AST 18 10-45 Units/L Creatinine Reviewed date:09/03/2024 03:29:31 PM Interpretation: Performing Lab:[facility] , [address] [place] [address]. [facility] [address] Notes/Report: Creatinine 0.68 0.60-1.10 mg/dL CBC w auto diff Reviewed date:09/03/2024 03:29:31 PM Interpretation: Performing Lab:[facility] , [address] [place] [address]. [facility] [address] Notes/Report: WBC 6.8 3.8-9.9 K/cumm Hgb 13.9 11.9-15.5 g/dL Hct 43.6 35.6-45.5 % Platelet Ct 259 150-400 K/cumm MPV 12.1 9.1-12.3 fL RBC 4.61 3.90-5.20 M/cumm MCV 94.6 81.3-96.4 fL MCH 30.2 27.1-33.3 pg MCHC 31.9 32.3-35.7 g/dL RDW CV 16.0 11.1-14.9 % RDW SD 54.6 35.7-48.1 fL NRBC Abs Auto 0.00 0.00-0.01 K/cumm Hep Func Panel (Not yet revi ewed by provider) Interpretation: Performing Lab:[facility] , [address] [facility] [address] Notes/Report: Total Bilirubin 0.6 0.1-1.2 mg/dL Bilirubin, Direct 0.3 0.1-0.3 mg/dL Plasma Total Protein 6.6 6.5-8.5 g/dL Albumin 3.8 3.5-5.0 g/dL Alkaline Phosphatase 390 40-130 Units/L ALT 78 7-45 Units/L AST 74 10-45 Units/L Reason For Referral No Information Medications Medication [...] Duration: 28 Days Active Vitamin D (Ergocalciferol) 44007 UNIT Oral Active Sotalol HCl 80 MG [...] or upper arm rotating injection sites Subcutaneous [id number] Not-Taking Pravastatin Sodium 10 MG take 1 [...] W/U Status Risk Notes Problem Rheumatoid arthritis (32746750) Other specified rheumatoid arthritis, 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 Problem Long-term current use of drug therapy (168620274) Other fci (current) drug therapy (Z79.899) Active confirmed Problem Rheumatoid arthritis (50174322) Rheumatoid arthritis, unspecified (M06.9) 5 Active confirmed Vital Signs Heart Rate 114 /min 03/14/2025 Temperature 98.1 degrees Fahrenheit 03/14/2025 Blood pressure diastolic 80 mm Hg 03/14/2025 Oximetry 83 % 03/14/2025 Height-cm 160.02 cm 03/14/2025 Weight-kg 73.94 kg 03/14/2025 Height 63 in 03/14/2025 Blood pressure systolic 160 mm Hg 03/14/2025 Weight 163 lbs 03/14/2025 BMI 28.87 kg/m2 03/14/2025 Encounters Encounter Location Date Provider Diagnosis [facility] [address] [place] [address] 09/02/2024 Filippo Jenkins Other fci (current) drug therapy Z79.899 and Other specified rheumatoid arthritis, 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 [facility] [address] [place] [address] 12/01/2024 Filippo Jenkins Other manager intermediate (current) drug therapy Z79.899 and Other specified rheumatoid arthritis, 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 [facility] [address] [place] [address] 03/02/2025 Filippo Jenkins Other manager intermediate (current) drug therapy Z79.899 and Other specified rheumatoid arthritis, 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 [facility] [address] [place] [address] 03/14/2025 Filippo Jenkins Other manager intermediate (current) drug therapy Z79.899 ; Other specified rheumatoid arthritis, 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 ; Elevated LFTs R79.89 and Elevated alkaline phosphatase level R74.8 [facility] [address] [facility] [address] [place] [address] 03/07/2025 Filippo Jenkins Assessments Encounter Date Diagnosis (ICD Code) Assessment Notes Treatment Notes Treatment Clinical Notes Section Notes 09/02/2024 Other specified rheumatoid arthritis, multiple sites (ICD-10 - M06.89) 09/02/2024 Other manager intermediate (current) drug therapy (ICD-10 - Z79.899) 12/01/2024 Other specified rheumatoid arthritis, multiple sites (ICD-10 - M06.89) 12/01/2024 Other manager intermediate (current) drug therapy (ICD-10 - Z79.899) 03/02/2025 Other fci (current) drug therapy (ICD-10 - Z79.899) 03/14/2025 Other specified rheumatoid arthritis, multiple sites (ICD-10 - M06.89) 03/14/2025 Other fci (current) drug therapy (ICD-10 - Z79.899) 03/14/2025 [...] Name:Filippo sylvester, 06/07/2025 11:30:00 AM, [address] [facility] [address] [address] [address], [place], [address], Insurance Providers Payer Name Payer Address Payer Phone Subscriber Number Group Number Insured Name Patient Relationship to Insured Coverage Start Date Coverage End Date [employer] [address] [place] [address] [id number] Laura Clifford Self - patient is the insured [id number] [address] [place] [id number] Laura Clifford Self - patient is the insured 1 DO NOT USE [id number] Laura Clifford Self - patient is the insured 8 [employer] Ppo [address] [address] [place] [address] [id number] Laura Clifford Self - patient is the insured 2 [employer] [address] [address] [place] [address] [id number] Laura Clifford Self - patient is the insured [employer] Ppo [address] [place] [address] [id number] Laura Clifford Self - patient is the insured Medical (General) History Surgical History Surgery Date(Month/Year) Hospitalization History Reason Date(Month/Year)
--- OUTSIDE RECORDS SUMMARY | 2025-06-05 15:49 | XMS_ITS | Clinical Summary ---
Author Organization [facility] Address [address], [facility] [address] [place] [address] Phone Care Team Providers Care Air Tool Operator Name Role Phone Parminder Rojas MD Primary Care Provider [phone] Allergies Active Allergy Reactions Criticality Noted Date [...] UNIT Tablet Take by mouth. Activ e [place]-3 Fatty Acids (FISH OIL PO) Take by [...] Zoster Immunization (1 of 2) 05/18/2013 03/23/2013 Medicare Initial AWV [id number] 08/31/2020 Pneumococcal Immunization (50+ years) (2 of 2 - PCV20 or PCV21) 08/20/2021 08/20/2020 Influenza Immunization (#1) 05/01/202505/31, 06/08/2018, 06/22/2017, Additional history exists SARS-COV-2 Immunization ( season) 2025 07/03/2021, 12/20/2020, 11/29/2020 Colonoscopy 04/01/2028 04/01/2018 Colorectal [...] Insurance MEDICARE C [employer] Care Teams Air Tool Operator Relationship Specialty Start Date End Date Parminder Rojas MD [address] [address] PCP - General Family Medicine 04/08/18
--- OUTSIDE RECORDS SUMMARY | 2025-06-05 15:49 | XMS_ITS ---
Author Name Machelle Mendoza Address [address] [facility] [place] [address] Phone [phone] Organization [facility] Care Team Providers Care Surgical Product Sales Consultant Name Role Phone Fanta Ernestina Unavailable [phone] [facility] Tier [facility] RN ([facility]), Claudine mariaaildequan Unavailable Filippo Carpenter Unavailable [phone] LEANDRO BARTHOLOMEW Unavailable [phone] TERRENCE HOWELL Unavailable [phone] Reason for Referral Not Available Allergies, adverse reactions, alerts Allergen Type Reaction Severity Status Onset Date Codeine Allergy to substance (disorder) nausea and vomiting Unknown Active N/A Ofloxacin Allergy to substance (disorder) unsure Unknown Active N/A Lisinopril Allergy to substance (disorder) unsure Unknown Active N/A History of medication use Medication Class Instructions Start Date End Date Repatha SureClick 140 mg/ML Solution Auto-injector INJECT 140 MG SUBCUTANEOUSLY EVERY 2 WEEKS 2024-11-10 No Data Available Leflunomide 20 mg Tab 1 tablet orally daily 2025-01-25 No Data Available Sotalol 80 mg Tab TAKE 1 TABLET BY KEITH TH TWICE A DAY 2024-01-28 No Data Available Metoprolol Tartrate 25 mg Tab TAKE 1 TAB LET BY MOUTH TWICE A DAY 2024-07-15 No Data Available Furosemide 40 mg Tab TAKE 1 TABLET BY MO UTH EVERY DAY 2023-09-11 No Data Available Xarelto 20 mg Tab TAKE 1 TABLET BY KEITH TH EVERY DAY MUST ADMINISTER WITH EVENING MEAL 2025-01-10 No Data Available Mounjaro 5 mg/0.5ML Solution Auto-injector Subcutaneous 5 mg subcutaneously weekly 2024-07-11 No Jame a Available metFORMIN ER 500 mg Tab ER 24hr TAKE 2 TABLETS BY MOUTH ONCE DAILY 2024-03-24 No Data Available Pantoprazole Sodium 40 mg Ta b delayed rel TAKE 1 TABLET BY MOUTH EVERY DAY IN THE MORNING 2024-04-19 No Data Available Arformoterol Tartrate 15 MCG/2ML Nebulization Solution Inhalation USE 1 VIAL IN NEBULIZER once at bedtime 2024-06-16 No Data Available Pramipexole Dihydrochloride 0.5 mg Tab TAKE 1 TABLET BY MOUTH EVERYDAY AT BEDTIME 2024-09-09 No Data Available Pravastatin Sodium 10 mg Tab TAKE 1 TABL ET BY MOUTH EVERY DAY 2024-06-13 No Data Available Iron 325 (65 Fe) MG Tab 1 tablet orally daily No Data Available Vitamin B12 1000 MCG Tab 1 tablet orally daily 2024-12 No Data Available Albuterol Sulfate HFA 108 (9 0 Base) MCG/ACT Aerosol Solution Inhalation INHALE 2 PUFFS BY MOUTH EVERY 4 HOURS NEEDED FOR WHEEZING OR SHORTNESS OF BREATH 2025-01-25 No Data Available Meclizine 25 mg Tab 1 tablet by mouth da shruthi as needed 2025-01-25 No Data Available Lomotil 2.5/0.025 mg Tab 1 tablet orally 4 times per day as needed 2025-01-25 No Data Available Vitamin D3 50 MCG (1999 UT) Cap 1 capsule orally daily 2025-01-25 No Data Available [facility] Magnesium Oxide 250 mg Tab No Data Available 2025-05-19 No Data Available Klor-Con 20 MEQ Packet MIX 1 PACKET AND TAKE BY MOUTH DAILY 2025-03-22 No Data Available Biotin 5000 MCG Cap No Data Available 2025-05-19 No Data Available Vitamin D3 50 MCG (1999 UT) Cap No Data Available 2025-05-19 No Data Available Problem List Problem Status Onset Date Resolved Date Synopsis COPD (chronic obstructive pulmonary disease) Active 2025-01-25 N/A 2nd hand smok e. Managed with Arformoterol inhalant and albuterol as needed. Atrial fibrillation, chronic Active 2025-01-25 N/A Managed with met oprolol, sotalol and Xarelto HLD (hyperlipidemia) Active 2025-01-25 N/A Key ged with pravastatin and repatha Bilateral lower extremity edema Active 2025-01-25 N/A Mild. Managed wi th furosemide. Restless leg Active 2025-01-25 N/A Well control led. Managed with pramipexole. Oxygen dependent Active 2025-01-25 N/A On 2L ox ygen via nasal cannula at baseline Type 2 diabetes mellitus Active 2025-01-25 N/A Managed with Metformin and Mounjaro. Rheumatoid arthritis Active 2025-01-25 N/A Well controlled. Managed with leflunomide. GERD (gastroesophageal reflux disease) Active 2025-01-25 N/A Well controlled. 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 If using time, at least 30 minutes total time on encounter [facility] 01/25/2025 Chronic obstructive pulmonary disease, unspecifiedChronic atrial fibrillation, unspecifiedHyperlipidemia, unspecifiedLocalized edemaRestless legs syndromeDependence on supplemental oxygenType 2 diabetes mellitus without complicationsRheumatoid arthritis, unspecifiedGastro-esophageal reflux disease without esophagitis Home visit for evaluation and management of new patient requiring medically appropriate examination and low level of medical decision making. If using time, at least 30 minutes total time on encounter [facility] 01/25/2025 Rheumatoid arthritis , unspecified Home visit for evaluation and management of new patient requiring medically appropriate examination and low level of medical decision making. If using time, at least 30 minutes total time on encounter [facility] 01/25/2025 Rheumatoid arthritis , unspecified Home visit for evaluation and management of new patient requiring medically appropriate examination and moderate level of medical decision making. If using time, at least 60 minutes total time on enco [facility] 05/19/2025 Chronic obstructive pulmonary disease, unspecifiedChronic atrial fibrillation, unspecifiedHyperlipidemia, unspecifiedLocalized edemaRestless legs syndromeDependence on supplemental oxygenType 2 diabetes mellitus without complicationsRheumatoid arthritis, unspecifiedGastro-esophageal reflux disease without esophagitisBody mass index (bmi) 31.0-31.9, adult Home visit for evaluation and management of new patient requiring medically appropriate examination and moderate level of medical decision making. If using time, at least 60 minutes total time on enco [facility] 05/19/2025 Rheumatoid arthritis , unspecified Home visit for evaluation and management of new patient requiring medically appropriate examination and moderate level of medical decision making. If using time, at least 60 minutes total time on [facility] 05/19/2025 Chronic atrial fibri llation, unspecified Home visit for evaluation and management of new patient requiring medically appropriate examination and moderate level of medical decision making. If using time, at least 60 minutes total time on [facility] 05/19/2025 Rheumatoid arthritis , unspecified Vital Signs Date of Collection Vitals 2025-01-25 09:00:00 Height - 154.94 cmWe ight - 76.66 kgBody Mass Index (BMI) - 31.93 kg/m2BP Diastolic - 69.0 mm[Hg]BP Systolic - 152.0 mm[Hg]Heart Rate - 113.0 /minRespiratory Rate - 18.0 /minBody Temperature - 36.11 CelO2 % BldC Oximetry - 96.0 % 2025-05-19 09:15:00 Height - 154.94 cmWe ight - 74.84 kgBody Mass Index (BMI) - 31.18 kg/m2BP Diastolic - 80.0 mm[Hg]BP Systolic - 144.0 mm[Hg]Heart Rate - 75.0 /minBody Temperature - 36.67 CelO2 % BldC Oximetry - 90.0 % Social History Social History Social History Observation Description Effec tive Time Current Smoking Status Never smoker 6 Sex Female History of Procedures Procedures Service Procedure code Service date Servicing provider Phone# Home visit for evaluation and management of new patient requiring medically appropriate examination and low level of medical decision making. If using time, at least 30 minutes total time on encounter [id number] 2025-01-25 No Data Available No Data Availa ble Advance care planning discussion documented in medical record [id number] 2025-01-25 No Data Available No Data Urmila armendariz Patient screened for fall risk; no falls in the last year or 1 fall with no injury in the last year 1100F 2025-01-25 No Data Available No Data Avail able Home visit for evaluation and management of new patient requiring medically appropriate examination and moderate level of medical decision making. If using time, at least 60 minutes [place] on enco [id number] 2025-05-19 No Data Available No Data Availa ble Patient screened for fall risk; 2 or more falls in the last year or fall with injury in the last year 1101F 2025-05-19 No Data Available No Data Bandar geronimo Advance care planning discussion documented in medical record [id number] 2025-05-19 No Data Available No Data Urmila armendariz Functional status assessed [id number] 2025-05-19 No Data Available No Data Bandar geronimo Functional Status Functional Category Effective Dates does not drive 2025-01-25 needs assistance with getting into the w alk in shower - helps 2025-01-25 dresses herself 2025-01-25 Using a walker 2025-05-21 Mental Status Status Date no cognitive issues were noted 2024-12-30 8 Assessments Date of Service Assessments 2025-01-25 09:00:00 COPD (chronic obstru ctive pulmonary disease)Atrial fibrillation, chronicHLD (hyperlipidemia)Bilateral lower extremity edemaRestless legOxygen dependentType 2 diabetes mellitusRheumatoid arthritisGERD (gastroesophageal reflux disease) 2025-05-19 09:15:00 COPD (chronic obstru ctive pulmonary disease)Atrial fibrillation, chronicHLD (hyperlipidemia)Bilateral lower extremity edemaRestless legOxygen dependentType 2 diabetes mellitusRheumatoid arthritisGERD (gastroesophageal reflux disease)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COPD (chronic obstructive pulmonary disease)Atrial fibrillation, chronicHLD (hyperlipidemia)Bilateral lower extremity edemaRestless legOxygen dependentType 2 diabetes mellitusRheumatoid arthritisGERD (gastroesophageal reflux disease)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 Plan of Care Date of Service Plans 2025-01-25 09:00:00 chronic; stableconti nue Albuterol inhaler PRN and Arformoterol neb tx at bedtimemanaged mostly by PCPwears home oxygen at 4 liters nasal cannulachronic; stablecontinue metoprolol 25 mg BID and sotalol 80 mg BID and Xarelto 20 mg once dailyfollows cardiology, Dr Bartholomew about twice a yearchroniccontinue pravastatin 10 mg once daily and Repatha sureclick 140mg every 2 weekheart healthy dietchronic; improvedcontinue furosemide 40 mg once daily and spironolactone 25 mg once dailycontinue wearing compression stockings during the daychronic; stablecontinue pramipexole 0.5 mg at bedtimemanaged by PCPsee #1chronic; unsure of last [id number] metformin 500 mg once daily and Mounjaro weekly injectionmonitor carbohydrate intakechroniccontinue leflunomide 20 mg once dailymanaged and followed by rheumatologychronic; stablecontinue pantoprazole 40 mg once dailyavoid any food triggers 2025-05-19 09:15:00 Enrolled in Tier [facility] Receiving PT/OT twice weekly into July. No RN or Provider needs identified at this time.2nd hand smoke. Managed with Arformoterol inhalant and albuterol as needed.Chronic, stable. Managed with metoprolol, sotalol and XareltoManaged with pravastatin and repathaMild lower extremity edema, non-pitting. Managed with furosemide.Well controlled. Managed with pramipexole.On 2L oxygen via nasal cannula at baselineLast A1C unknown. Has lost 80 lbs over the last year. Managed with Metformin and Mounjaro.Well controlled. Managed with leflunomide.Well controlled. Managed with pantoprazoleManaged with [id number] hand smoke. Managed with Arformoterol inhalant and albuterol as needed.Managed with metoprolol, sotalol and XareltoManaged with pravastatin and repathaMild. Managed with furosemide.Well controlled. Managed with pramipexole.On 2L oxygen via nasal cannula at baselineManaged with Metformin and Mounjaro.Well controlled. Managed with leflunomide.Well controlled. Managed with pantoprazoleManaged with Xarelto. Continue medication Goals Date Goal 2025-01-25 PCP appt February 06 5 - advised patient to request mammogram rx and bone Dexa scan Health Concerns Date Concern 2025-05-19 Your patient, Elfego Clifford1950 has been enrolled in [facility]. [facility] is care by a physician and/or advanced practice provider in-home or virtual as an extension of your primary care. We also have registered nurses, pharmacists, community health workers, and social workers that assist with your patient as needed. Please note that your patient will remain attributed to you. If you have any questions, please reach out directly to our team at the phone number above. We will be setting up care conferences with your practice if you want to attend those or we can set up individual care conferences at a more convenient time. Laura Clifford is being seen today through our [facility] program to complete a comprehensive exam. Privacy Practices were agreed upon and signed. This visit is to assist with complex patient care and assist your team in closing any care gaps. Today the following gaps/needs have been identified:Acute concerns addressed today: 2025-05-19 Medication Changes: No changes today. 2025-05-19 Follow Up Recommenda tions: Tier 2 RN follow. Continue PT/OT that has already been set-up. Visits are schedule twice weekly until July. 2025-05-19 [facility] progr am contacted by [facility] CM after a hospital discharge. 2025-05-19 Currently getting [facility]. RN initial visit for med reconciliation on 05/15. Initial OT visit on 05/16: difficulty ambulating, dyspnea, fall risk, fear of leaving home, impaired driving ability, impaired gait, limited endurance, poor coordination, vision impairment.Has a house keeper every 3 weeks. 2025-05-19 Around 04/23 she trie d walking to the living room. When trying to step down, her leg froze and her had to help her. Her legs progressively got more weak. A week later she went to [facility] after a fall. She was stuck between the car and the wall. Had to call EMS. She was admitted to [facility] for 2 [facility]. The plan was to go to [facility] for rehab. Then discussed having surgery on neck, so she was transferred to [facility]. She was admitted for 2 days and then discharged home. A surgeon told her that if things don't improve, contact him and then he'll do surgery. 2025-05-19 She was treated for UTI/pneumonia. Denies symptoms for either diagnosis. 2025-05-19 She has chronic neck pain not related to any known injury. She has seen Dr. Renae in the past for back pain. 2025-05-19 She has had some wea kness since discharge. Her right knee gives. 2025-05-19 She has numbness and tinging in her hands. 2025-05-19 She has swelling in her ankles and feet. 2025-05-19 She started Mounjaro nearly a year ago. She has lost nearly 80 lbs over that year. 2025-05-19 Going to make an lior t to see her PCP soon. 2025-05-19 Her prescriptions ar e affordable and rarely pays out of pocket. 2025-05-19 She was sleepy today . 2025-05-19 Rheumatology f/u in May and Cardiology in July.
--- OUTSIDE RECORDS SUMMARY | 2025-06-05 15:49 | XMS_ITS | Clinical Summary ---
Author Organization [facility] Address [address] [place] [address] Care Team Providers Care Scraper Tender Name Role Phone Max Carpenter MD Unavailable [phone] Source Comments [facility],non-owned Affiliates and Associated Physician Practices is amultiple site organization consisting of ambulatory clinics and hospital sitesin [place], [place], [place] and [place]. This disclosure is being madepursuant [...] on file Legal Sex Female 6:12 AM BOARD ATTENDANT Gender Identity Not on file Sexual Orientation Not on file Last Filed Vital Signs Vital Sign Reading Time Taken Comments Blood Pressure 134/68 07/22/2011 4:17 PM BOARD ATTENDANT Pulse 81 07/22/2011 4:17 PM BOARD ATTENDANT Temperature 36.9 C (98.5 F) 07/22/2011 4:17 PM BOARD ATTENDANT Respiratory Rate 18 07/22/2011 4:17 PM BOARD ATTENDANT Oxygen Saturation 96% 07/22/2011 4:17 PM BOARD ATTENDANT Inhaled Oxygen Concentration - - Weight 104.3 kg (230 lb) 07/22/2011 6:45 AM BOARD ATTENDANT Height 160 cm (5' 3) 07/22/2011 6:45 AM BOARD ATTENDANT Body Mass Index 40.74 07/22/2011 6:45 AM BOARD ATTENDANT Plan of Treatment Health Maintenance Due Date [...] - Risk 60-74 years 1-dose series) 2012 DEPRESSION SCREENING 08/31/2024 MEDICARE AWV CALENDAR YEAR 2024 COVID-19 VACCINE (1 - 2023-2 5 season) 2025 INFLUENZA VACCINE (#1) 2025 HEPATITIS B VACCINE [...] age to complete this topic Insurance [employer] [facility] [employer] MEDICARE ADV SELF PAY NO INSURANCE Member Subscriber Plan / Payer (Ef fective for All Dates) Name:Laura Valenzuela Member ID:Not on file Relation to Subscriber:Not on file Name:LAURA VALENZUELA Subscriber ID:Not on file Address: [address] [place] [address] [place] [address] Payer ID:Not on file Group ID:Not on file Type:Self Pay Address: [place], [place] Advance Directives * FULL RESUSCITATION (Latest Code Status on File) Date Activated Date Inactivated Comments 07/22/2011 12:27 PM 07/23/2011 6:58 AM Care Teams Scraper Tender Relationship Specialty Start Date End Date Max Carpenter MD Physician Rheumatology 08/10/11
--- OUTSIDE RECORDS SUMMARY | 2025-06-05 15:50 | XMS_ITS | Clinical Summary ---
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 Role Phone Parminder Rojas MD Primary Care Provider [phone] Yannick Guevara MD Unavailable [phone] Ayde Peña MD Unavailable [phone] Allergies Active Allergy Reactions Criticality Noted Date Comments Amoxicillin Unknown Low 07/20/2024 Ciprofloxacin Unknown Low 07/20/2024 Clopidogrel Nausea And Vomiting Low 02/04/2022 Codeine Nausea & Vomiting Low Hydrocodone Nausea And Vomiting Low 02/04/2022 Levofloxacin Unknown Low 07/20/2024 Lisinopril Unknown Low 07/20/2024 Tramadol Nausea & Vomiting Low 07/20/2024 Medications leflunomide (ARAVA) 20 mg tabletIndications: Rheumatoid Arthritis take 1 tablet (20MG) by oral route every day 0 013 Active pramipexole (MIRAPEX) 0.5 mg tabletIndications: Restless Legs Syndrome take 1 tablet by oral route every day [address] (PROTONIX) 40 mg EC tabletIndications: Stress Ulcer Prophylaxis take 1 tablet by oral route every day 0 0 014 Active sotalol (BETAPACE) 80 mg tablet take 1 tablet by oral every 12 hours 180 4 014 Active furosemide (LASIX) 40 mg tabletIndications: Edema TAKE 1 TABLET BY ORAL ROUTE EVERY DAY 90 1 014 Active metoprolol tartrate (LOPRESSOR) 25 mg immediate release tabletIndications: hypertension Take 1 tablet by mouth 2 (two) times a day Active cholecalciferol (Vitamin D3) 2000 unit tabletIndications: Vitamin D Deficiency Take 1 tablet by mouth daily Active diphenoxylate-atro pine (LOMOTIL) 2.5-0.025 mg per tabletIndications: diarrhea Take 1 tablet by mouth 4 (four) times a day as needed for diarrhea Active arformoteroL (BROVANA) 15 mcg/2 mL nebulizer solutionIndication s:Bronchospasm Prevention with COPD Take 2 mL (15 mcg total) by nebulization once daily USE 1 VIAL IN NEBULIZER DAILY Active pravastatin (PRAVACHOL) 10 mg tabletIndications: hyperlipidemia Take 1 tablet by mouth daily Active Xarelto 20 mg tabletIndications: VTE Prophylaxis Take 1 tablet by mouth daily with dinner Active Mounjaro 2.5 mg/0.5 mL pen injectorIndication s:type 2 diabetes mellitus Inject 0.5 mL under the skin once a week Fridays Active albuterol HFA (PROVENTIL HFA,VENTOLIN HFA,PROAIR HFA) 90 mcg/actuation inhaler Inhale 2 puffs every 6 (six) hours as needed for wheezing Active UNABLE TO FIND Apply 1 each topically 2 (two) times a day as needed (Rectal fissure) Med Name: Diltiazem 2% oint. Apply pea size to anus bid prn Active evolocumab (Repatha Christianoick) 140 mg/mL pen injectorIndication s:hypercholesterol emia Inject 1 mL under the skin every 14 (fourteen) days Active metFORMIN XR (GLUCOPHAGE XR) 500 mg 24 hr tabletIndications: Prevention of Type 2 Diabetes Mellitus Take 2 tablets by mouth daily with dinner Active mirtazapine (REMERON) 7.5 mg tablet Take 1 tablet (7.5 mg total) by mouth nightly as needed Active potassium chloride ER 20 mEq CR tabletIndications: potassium supplementation Take 1 tablet (20 mEq total) by mouth 2 (two) times a day 180 tablet 2 Active oxygenIndications: Dyspnea Administer 2 L/min into each nostril continuously. Indications: trouble breathing Active magnesium oxide (MAG-OX) 250 mg (150.8 mg elemental) tabletIndications: hypomagnesemia Take 250 mg by mouth daily. Indications: low amount of magnesium in the blood Active biotin 5 mg capsuleIndications :Biotin Deficiency Take 5 mg by mouth daily. 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 take every 6 hours as needed for pain Indications: pain 025 Active warfarin (COUMADIN) 2 mg tablet take 1 Tablet by oral route every day or as directed 90 1 014 2024 Discontinued(A lternate therapy) potassium chloride ER (KLOR-CON,K-DUR) 20 mEq CR tablet take 1 tablet by oral route every day with food 60 4 014 2024 Discontinued aspirin (ASPIR-81) 81 mg tablet take 1 tablet by oral route every day 0 0 015 2024 Discontinued famotidine (PEPCID) 20 mg tablet Take 1 tablet (20 mg total) by mouth daily 2024 Discontinued(A lternate therapy) magnesium oxide (MAG-OX) 415 mg (250 mg elemental) tablet 400 mg 2024 Discontinued fenofibrate (TRIGLIDE) 160 mg tablet Take 1 tablet (160 mg total) by mouth daily 2024 Discontinued(A lternate therapy) albuterol HFA (PROVENTIL HFA,VENTOLIN HFA,PROAIR HFA) 90 mcg/actuation inhaler Inhale 2 puffs every 6 (six) hours as needed for wheezing 2024 Discontinued losartan (COZAAR) 50 mg tablet Take 1 tablet (50 mg total) by mouth daily 2024 Discontinued niacin 100 mg tablet Take 1 tablet (100 mg total) by mouth daily with breakfast 2024 Discontinued vitamin A 10,000 unit capsule Take 1 capsule (10,000 Units total) by mouth daily 2024 Discontinued white petrolatum (bulk)-dilTIAZem (bulk)Indications: Anal fissure Diltiazem 2%: Apply pea size amount (2 cm) to anus BID. 60 g 021 2024 Discontinued Stiolto Respimat 2.5-2.5 mcg/actuation inhaler 021 2024 Discontinued Praluent Pen 75 mg/mL pen injector Inject 1 mL under the skin every 14 (fourteen) days 024 2024 Discontinued(A lternate therapy) spironolactone (ALDACTONE) 25 mg tablet Take 1 tablet (25 mg total) by mouth daily 2024 Discontinued meclizine (ANTIVERT) 25 mg tabletIndications: Prevention of Motion Sickness Take 1 tablet by mouth 3 (three) times a day as needed for dizziness or nausea 2024 Discontinued(N o longer taking - Do not display on AVS) prochlorperazine (COMPAZINE) 10 mg tablet Take 1 tablet (10 mg total) by mouth every 6 (six) hours as needed for nausea or vomiting 2024 Discontinued magnesium oxide (MAG-OX) 400 mg (241.3 mg elemental magnesium) tabletIndications: hypomagnesemia Take 1 tablet (400 mg total) by mouth nightly as needed (leg cramps) 2024 Discontinued(E rror) Active Problems Problem Noted Date Diagnosed Date Cervical spondylosis 05/08/2025 Assessment & Plan (05/09/2025 4:04 PM CDT): MRI shows C3-C5 severe canal stenosis Multilevel thoracic disc degenerative disease NSGY consulted PT/OT consulted Assessment & Plan (05/08/2025 11:24 PM CDT): MRI shows C3-C5 severe canal stenosis Multilevel thoracic disc degenerative disease Consult to neurosurgery for further management Cervical stenosis of spinal canal 05/08/2025 Assessment & Plan (05/09/2025 4:04 PM CDT): MRI shows C3-C5 severe canal stenosis Multilevel thoracic disc degenerative disease NSGY consulted PT/OT consulted Assessment & Plan (05/08/2025 11:24 PM CDT): MRI shows C3-C5 severe canal stenosis Multilevel thoracic disc degenerative disease Consult to neurosurgery for further management Hypokalemia 05/08/2025 Assessment & Plan (05/09/2025 2:52 PM CDT): Potassium chloride ER 40 mg daily Monitor labs Assessment & Plan (05/08/2025 11:24 PM CDT): Potassium chloride ER 20 mg Monitor labs Type 2 diabetes mellitus, wi th long-term current use of insulin 05/08/2025 Assessment & Plan (05/09/2025 2:52 PM CDT): SSI with hypoglycemia protocol Diabetic diet Assessment & Plan (05/08/2025 11:24 PM CDT): SSI with hypoglycemia protocol Diabetic diet Coronary artery disease invo lving autologous artery coronary bypass graft with angina pectoris 05/08/2025 Assessment & Plan (05/09/2025 2:52 PM CDT): Continue sotalol statin and lasix Hold xarelto for possible surgery intervention Assessment & Plan (05/08/2025 11:24 PM CDT): Continue sotalol statin and lasix Hold xarelto for possible surgery intervention Rheumatoid arthritis 05/08/2025 Assessment & Plan (05/09/2025 2:52 PM CDT): leflunomide Assessment & Plan (05/08/2025 11:24 PM CDT): leflunomide Dyslipidemia 05/08/2025 Assessment & Plan (05/09/2025 2:52 PM CDT): Continue statin Assessment & Plan (05/08/2025 11:24 PM CDT): Continue statin COPD (chronic obstructive pulmonary disease) 03/2025 Assessment & Plan (05/09/2025 2:52 PM CDT): Nebulizer Brovana Proventil HFA Assessment & Plan (05/08/2025 11:24 PM CDT): Rachaeledwin Carolyn HFa Functional diarrhea 05/23/2021 Anal fissure 02/07/2021 Encounters Date Type Department Care Team Description 06/01/2025 3:00 PM CDT Home Care Visit [address] [place] [address] Sarah Henning, PT PT HOME VISIT 06/01/2025 10:30 AM CDT Home Care Visit [address] [place] [address] Rachel Cardozo, OT OT HOME VISIT 05/30/2025 3:30 PM CDT Home Care Visit [address] [place] [address] Sarah Henning, PT PT HOME VISIT 05/30/2025 Home Care Visit [address] [place] [address] Rachel Cardozo, OT TELEPHONE ENCOUNTER 05/25/2025 2:00 PM CDT Home Care Visit [address] [place] [address] Brenton Fonseca, PT PT HOME VISIT 05/25/2025 12:30 PM CDT Home Care Visit [address] [place] [address] Rachel Cardozo, OT OT HOME VISIT 05/23/2025 4:00 PM CDT Home Care Visit [address] [place] [address] Brenton Fonseca, PT PT HOME VISIT 05/23/2025 12:30 PM CDT Home Care Visit [address] [place] [address] Rachel Cardozo, OT OT HOME VISIT 05/19/2025 1:30 PM CDT Home Care Visit [address] [place] [address] Sarah Henning, PT PT HOME VISIT 05/16/2025 11:00 AM CDT Home Care Visit [address] [place] [address] Rachel Cardozo, OT OT INITIAL EVALUATION 05/16/2025 Home Care Visit [address] [place] [address] Rachel Cardozo, OT TELEPHONE ENCOUNTER 05/15/2025 Home Care Visit [address] [place] [address] Marika Koch, RN HH NURSE MED RECON FOR THERAPY 05/15/2025 Plan of Care Documentation [address] [place] [address] 05/12/2025 11:00 AM CDT Home Care Visit [address] [place] [address] Brenton Fonseca, PT PT OASIS START OF CARE 05/12/2025 Home Care Visit [address] [place] [address] Brenton Fonseca, PT TELEPHONE ENCOUNTER 05/11/2025 Telephone [facility] Home Care Services [address] [place] [id number] Sharyn Cotton 05/08/2025 8:21 PM CDT - 05/10/2025 3:49 PM CDT Hospital Encounter [facility] [address] [place] [address] Fifi Arrington MD Shimotani, Dorian Genki, DO Rajab, Rawan A., MD Cervical spondylosis [M47.812] (Primary Dx) Discharge Disposition: Discharge to home, home health skilled care 05/08/2025 Orders Only [facility] [address] [place] [address] Fifi Arrington MD 03/14/2025 7:30 PM CDT - 03/14/2025 11:59 PM CDT Hospital Encounter [facility] [id number] [place] [address] Discharge Disposition: Discharge to home [...] drink = 0.6 oz pur e alcohol) OASIS D0700: Social Isolation Answer Da te Recorded Frequency of experiencing loneliness or isolatio n Never 05/12/2025 OASIS A1250: Transportation Answer Date Recorded Lack of Transportation (Medical) No 05/12/2025 Lack of Transportation (Non-Medical) No 05/12/2025 Patient Unable or Declines to Respond No 05/12/2025 OASIS B1300: Health Literacy Answer Jame e Recorded Frequency of needing help to read materials from doctor or pharmacy Never 05/12/2025 AUDIT-C Answer Date Recorded Q1: How often do you have a drink containing alc ohol? Monthly or less 07/20/2024 Q2: How many drinks containi ng alcohol do you have on a typical day when you are drinking? 1 or 2 07/20/2024 Q3: How often do you have si x or more drinks on one occasion? Never 07/20/2024 Social Connection and Isolation Panel Answer Date Recorded In a typical week, how many times do you talk on the phone with family, friends, or neighbors? More than three times a week 05/09/2025 How often do you get togethe r with friends or relatives? Once a week 05/09/2025 How often do you attend chur ch or islam services? Never 05/09/2025 Do you belong to any clubs o r organizations such as zoroastrian groups, unions, fraternal or athletic groups, or school groups? No 05/09/2025 How often do you attend meet ings of the clubs or organizations you belong to? Never 05/09/2025 Are you , , di vorced, , never , or living with a partner? 05/09/2025 Overall Financial Resource Strain (CARDIA) Answe r Date Recorded How hard is it for you to pa y for the very basics like food, housing, medical care, and heating? Not very hard 05/09/2025 Hunger Vital Sign Answer Date Recorded Within the past 12 months, y ou worried that your food would run out before you got the money to buy more. Never true 05/09/20 25 Within the past 12 months, t he food you bought just didn't last and you didn't have money to get more. Never true 05/09/2025 PRAPARE - Transportation Answer Date Re corded In the past 12 months, has l ack of transportation kept you from medical appointments or from getting medications? No 05/2025 In the past 12 months, has l ack of transportation kept you from meetings, work, or from getting things needed for daily living? No 05/09/2025 Housing Stability Vital Sign Answer Jame e Recorded In the last 12 months, was t here a time when you were not able to pay the mortgage or rent on time? No 05/09/2025 In the past 12 months, how m any times have you moved where you were living? 0 05/09/2025 At any time in the past 12 m [facility], were you homeless or living in a [place] (including now)? No 05/09/2025 [facility] Utilities Answer Date Recorded In the past 12 months has th [employer], gas, oil, or water company threatened to shut off services in your home? No 05/09/2025 Personal Safety Answer Date Recorded Have you ever been in or are you currently in a harmful physical or emotional relationship or is someone making you feel afraid or unsafe? 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 Gender Identity Not on file Sexual Orientation Not on file Obstetrics History Last Filed Vital Signs Vital Sign Reading Time Taken Comments Blood Pressure 130/75 06/01/2025 3:15 PM CDT Pulse 96 06/01/2025 3:15 PM CDT Temperature 36.7 C (98 F) 06/01/2025 3:15 PM CDT Respiratory Rate 18 06/01/2025 3:15 PM CDT Oxygen Saturation 91% 06/01/2025 3:15 PM CDT Inhaled Oxygen Concentration - - Weight 70.8 kg (156 lb) 05/12/2025 11:48 AM CDT Height 154.9 cm (5' 1) 05/12/2025 11:48 AM CDT Body Mass Index 29.48 05/12/2025 11:48 AM CDT Plan of Treatment Health Maintenance Due Date Last Done Comments Albumin Creatinine Ratio, Urine 1952 Breast Cancer Screening-Mammogram 1952 Colon Cancer Screening-Colonoscopy 1952 Depression Screening 1952 Hemoglobin A1C 1952 Hepatitis C Screening 1952 Osteoporosis Screening-Bone Density Scan 1952 Dilated Eye Exam 1952 Foot Exam 1952 DTaP/Tdap/Td Vaccine (1 - Tdap) 02/12/1963 Hepatitis B Screening 02/12/1970 Zoster Vaccine (2 of 3) 05/18/2013 03/23/2013 Well Visit 65+ 02/12/2017 Lipid Panel 04/10/2017 04/10/2016, 02/25/2014 Covid-19 Vaccine (2024-2 6 season) 2025 07/03/2021, 12/20/2020, 11/29/2020 Influenza Vaccine (#1) 2025 , 06/08/2018, 06/22/2017, Additional history exists Fall Risk Assessment 05/10/2026 05/10/2025 eGFR 05/10/2026 05/10/2025, 05/2025, 03/02/2025, Additional history exists Pneumococcal vaccine 65+ Completed 08/20/2021, 08/01 Procedures Procedure Name Priority Date/Time Associated Diagnosis Comments POCT GLUCOSE DEVICE Routine 05/10/2025 1 1:58 AM CDT POCT GLUCOSE DEVICE Routine 05/10/2025 6 :07 AM CDT EGFR Routine 05/10/2025 4:24 AM CDT MAGNESIUM Routine 05/10/2025 4:24 AM CDT BASIC METABOLIC PANEL Routine 05/10/2025 4:24 AM CDT POCT GLUCOSE DEVICE Routine 05/09/2025 8 :37 PM CDT POCT GLUCOSE DEVICE Routine 05/09/2025 4 :42 PM CDT ECG 12-LEAD Routine 05/09/2025 2:10 PM CDT POCT GLUCOSE DEVICE Routine 05/09/2025 1 1:25 AM CDT APTT Routine 05/09/2025 10:29 AM CDT PROTIME-INR Routine 05/09/2025 10:29 AM CDT ADD ON LAB TEST Add-On 05/09/2025 9:24 AM CDT DIFFERENTIAL AUTO Routine 05/09/2025 6:1 8 AM CDT CBC WITH AUTO DIFFERENTIAL Routine 05/09/2025 6:18 AM CDT POCT GLUCOSE DEVICE Routine 05/09/2025 6 :11 AM CDT MAGNESIUM Routine 05/09/2025 3:45 AM CDT EGFR Routine 05/09/2025 3:45 AM CDT COMPREHENSIVE METABOLIC PANEL Routine 05/09/2025 3:45 AM CDT POCT GLUCOSE DEVICE Routine 05/09/2025 1 2:12 AM CDT HEPATIC FUNCTION PANEL Routine 1:36 PM CDT SERUM LIPID PANEL Routine 04/10/2016 10: 35 PM CDT from Last 3 Months or Most Recently Relevant to Health Maintenance Results * POCT glucose (05/10/2025 11:58 AM CDT) Glucose, POC 149 70 - 199 mg/dL Comment: For Glucose values <35 mg/dl when Hematocrit is >60 mg/dl,the test may not accurately detect significant hypoglycemia,and testing in the Laboratory should be considered if clinically indicated. Blood 05/10/2025 11:5 8 AM CDT 05/10/2025 11:58 AM CDT us La Maldonado MD LAB POCT ORDERABLES - DEVICE F inal Result [facility] [address] [place] [address] * POCT glucose (05/10/2025 6:07 AM CDT) Glucose, POC 135 70 - 199 mg/dL Comment: For Glucose values <35 mg/dl when Hematocrit is >60 mg/dl,the test may not accurately detect significant hypoglycemia,and testing in the Laboratory should be considered if clinically indicated. Blood 05/10/2025 6:07 AM CDT 05/10/2025 6:07 AM CDT La Maldonado MD LAB POCT ORDERABLES - DEVICE F inal Result Performing Organization Address [facility] Co de Phone Number [facility] [address] [place] [address] * eGFR (05/10/2025 4:24 AM CDT) eGFR 71 >=60 mL/min/1. 73 m2 Comment: Interpretive Data [...] interpretive data was last reviewed 2021. Blood 05/10/2025 4:24 AM CDT 05/10/2025 5:36 AM CDT La Maldonado MD LAB BLOOD ORDERABLES Final Res ult Performing Organization Address [facility]/ZIP Co de Phone Number [facility] [address] [place] [address] * Magnesium (05/10/2025 4:24 AM CDT) Magnesium 2.0 1.4 - 2.5 mg/dL Blood 05/10/2025 4:24 AM CDT 05/10/2025 5:36 AM CDT La Maldonado MD LAB BLOOD ORDERABLES Final Res ult Performing Organization Address [facility]/ZIP Co de Phone Number [facility] [address] [place] [address] * (ABNORMAL) Basic metabolic panel (05/10/2025 4:24 AM CDT) [facility] Sodium 139 135 - 145 mmol/L Potassium, pl 3.2(L) 3.3 - 4.9 mmol/L [facility] Chloride 99 97 - 110 mmol/L [facility] CO2 28 22 - 32 mmol/L [facility] Anion gap 12 2 - 15 mmol/L [facility] BUN 12 6 - 25 mg/dL [facility] Creatinine 0.86 0.60 - 1.10 mg/dL [facility] Glucose 131 70 - 199 mg/dL [facility] Comment: Interpretive Data Fasting glucose >/= 126 mg/dl is diagnostic for diabetes. Fasting is defined as no caloric intake for at least 8 hours. Fasting glucose between 100 mg/dl to 125 mg/dl is diagnostic of prediabetes. In a patient with classic symptoms of hyperglycemia or hyperglycemic crisis, a random glucose >/= 200 mg/dl is diagnostic for diabetes. In the absence of unequivocal hyperglycemia, results should be confirmed by repeat testing. The classification and Diagnosis of Diabetes Diabetes Care 2021; 46: S19-S40. Current interpretive data was last revised 2022. Calcium 9.0 8.5 - 10.3 mg/dL [facility] Blood 05/10/2025 4:24 AM CDT 05/10/2025 5:36 AM CDT La Maldonado MD LAB BLOOD ORDERABLES Final Res ult Performing Organization Address [facility]/ZIP Co de Phone Number [facility] [address] [place] [address] * POCT glucose (05/09/2025 8:37 PM CDT) Glucose, POC 198 70 - 199 mg/dL Comment: For Glucose values <35 mg/dl when Hematocrit is >60 mg/dl,the test may not accurately detect significant hypoglycemia,and testing in the Laboratory should be considered if clinically indicated. Blood 05/09/2025 8:37 PM CDT 05/09/2025 8:37 PM CDT La Maldonado MD LAB POCT ORDERABLES - DEVICE F inal Result Performing Organization Address [facility] Co de Phone Number [facility] [address] [facility] [place] [address] * POCT glucose (05/09/2025 4:42 PM CDT) Glucose, POC 194 70 - 199 mg/dL Comment: For Glucose values <35 mg/dl when Hematocrit is >60 mg/dl,the test may not accurately detect significant hypoglycemia,and testing in the Laboratory should be considered if clinically indicated. Blood 05/09/2025 4:42 PM CDT 05/09/2025 4:42 PM CDT La Maldonado MD LAB POCT ORDERABLES - DEVICE F inal Result Performing Organization Address [facility] Co de Phone Number [facility] [address] [place] [address] * ECG 12 lead (05/09/2025 2:10 PM CDT) 05/09/2025 2:10 PM CDT Narrative [facility] - 05/10/2025 9:17 AM CDT Vent Rate: 86 bpm RR Interval: 697 msec UT Interval: 203 msec QRS Duration: 117 msec QT Interval: 381 msec QTC Interval: 424 msec P-R-T [place]: 49 - -46 - 27 degrees IMPRESSION: SINUS RHYTHM INCOMPLETE RIGHT BUNDLE BRANCH BLOCK LEFT ANTERIOR FASCICULAR BLOCK POOR R-WAVE PROGRESSION ABNORMAL ECG Electronically Signed By: Julien Torres MD [facility] La Maldonado MD ECG ORDERABLES Final Result Performing Organization Address [facility] Phone Number [facility] [place] [facility] * POCT glucose (05/09/2025 11:25 AM CDT) Pathologist [facility] Glucose, POC 190 70 - 199 mg/dL Comment: For Glucose values <35 mg/dl when Hematocrit is >60 mg/dl,the test may not accurately detect significant hypoglycemia,and testing in the Laboratory should be considered if clinically indicated. Blood 05/09/2025 11:2 5 AM CDT 05/09/2025 11:25 AM CDT La Maldonado MD LAB POCT ORDERABLES - DEVICE F inal Result Performing Organization Address [facility] Phone Number [facility] [address] [place] [address] * aPTT (05/09/2025 10:29 AM CDT) [facility] aPTT 33 26 - 38 sec Comment: Interpretive Data Heparin therapeutic range: 66.0 - 100.0 seconds. Range based on correlation with therapeutic heparin activity range of 0.3 - 0.7 Units/mL. Current interpretive data was last revised on 2023. Blood 05/09/2025 10:2 9 AM CDT 05/09/2025 10:46 AM CDT Obed Goyal DO LAB BLOOD ORDERABLES F inal Result Performing Organization Address [facility] de Phone Number [facility] [address] [place] [address] * Protime-INR (05/09/2025 10:29 AM CDT) Pathologist [facility] PT 13.5 10.2 - 13.5 sec INR 1.20 0.90 - 1.20 [facility] Comment: Interpretive data Oral anticoagulant therapeutic ranges: Venous thromboembolism prophylaxis or treatment: 2.0-3.0 CARDIOLOGY Standard range: 2.0-3.0 High-intensity range: 2.5-3.5 Refer to indication-specific guidelines for appropriate target ranges for prosthetic heart valve replacement. Current interpretive data was last revised on 2019. Blood 05/09/2025 10:2 9 AM CDT 05/09/2025 10:46 AM CDT bOed Goyal DO LAB BLOOD ORDERABLES F inal Result Performing Organization Address City/[facility]/ZIP Co de Phone Number [facility] [address] [place] [address] * Magnesium - Add on lab test (05/09/2025 9:24 AM CDT) Acceptable Yes Blood 05/09/2025 9:24 AM CDT 05/09/2025 9:25 AM CDT Narrative [facility] - 05/09/2025 9:25 AM CDT Name of Test->Magnesium La Maldonado MD LAB BLOOD ORDERABLES Final Res ult Performing Organization Address City/[facility] [facility] Co de Phone Number [facility] [address] [place] [address] * (ABNORMAL) Differential, auto (05/09/2025 6:18 AM CDT) Neutrophil abs 4.95 1.50 - 6.50 K/cumm Imm gran abs 0.11(H) 0.00 - 0.10 K/cumm [facility] Lymphocyte abs 1.33 0.80 - 3.30 K/cumm [facility] Monocyte abs 1.12(H) 0.20 - 0.80 K/cumm [facility] Eosinophil abs 0.34 0.00 - 0.50 K/cumm [facility] Basophil abs 0.07 0.00 - 0.10 K/cumm [facility] Neutrophil pct 62.5 % [facility] Comment: Interpretive Data Percent cell count reference ranges are not reported, since discordance with absolute values may lead to misinterpretation of CBC data. Current Interpretive Data was last revised on 2017. Imm gran pct 1.4 % [facility] Comment: Interpretive Data Percent cell count reference ranges are not reported, since discordance with absolute values may lead to misinterpretation of CBC data. Current Interpretive Data was last revised on 2017. Lymphocyte pct 16.8 % [facility] Comment: Interpretive Data Percent cell count reference ranges are not reported, since discordance with absolute values may lead to misinterpretation of CBC data. Current Interpretive Data was last revised on 2017. Monocyte pct 14.1 % [facility] Comment: Interpretive Data Percent cell count reference ranges are not reported, since discordance with absolute values may lead to misinterpretation of CBC data. Current Interpretive Data was last revised on 2017. Eosinophil pct 4.3 % [facility] Comment: Interpretive Data Percent cell count reference ranges are not reported, since discordance with absolute values may lead to misinterpretation of CBC data. Current Interpretive Data was last revised on 2017. Basophil pct 0.9 % [facility] Comment: Interpretive Data Percent cell count reference ranges are not reported, since discordance with absolute values may lead to misinterpretation of CBC data. Current Interpretive Data was last revised on 2017. Blood 05/09/2025 6:18 AM CDT 05/09/2025 6:18 AM CDT us Fifi Arrington MD LAB BLOOD ORDERABLES Final Resu lt [facility] [address] [place] [address] * (ABNORMAL) CBC with auto differential (05/09/2025 6:18 AM CDT) WBC 7.92 3.80 - 9.90 K/cumm Hgb 11.4(L) 11.9 - 15.5 g/dL [facility] Hct 35.5(L) 35.6 - 45.5 % [facility] Plt 198 150 - 400 K/cumm [facility] MPV 11.7 9.1 - 12.3 fL [facility] RBC 3.92 3.90 - 5.20 M/cumm [facility] MCV 90.6 81.3 - 96.4 fL [facility] MCH 29.1 27.1 - 33.3 pg [facility] MCHC 32.1(L) 32.3 - 35.7 g/dL [facility] RDW CV 16.7(H) 11.1 - 14.9 % [facility] RDW SD 53.6(H) 35.7 - 48.1 fL [facility] NRBC abs 0.00 0.00 - 0.01 K/cumm [facility] Blood 05/09/2025 6:18 AM CDT 05/09/2025 6:18 AM CDT us Fifi Arrington MD LAB BLOOD ORDERABLES Final Resu lt Performing Organization Address City/[facility]/ZIP Co de Phone Number [facility] [address] [place] [address] * POCT glucose (05/09/2025 6:11 AM CDT) [facility] Glucose, POC 116 70 - 199 mg/dL Comment: For Glucose values <35 mg/dl when Hematocrit is >60 mg/dl,the test may not accurately detect significant hypoglycemia,and testing in the Laboratory should be considered if clinically indicated. Blood 05/09/2025 6:11 AM CDT 05/09/2025 6:11 AM CDT Obed Goyal DO LAB POCT ORDERABLES - DEVICE Final Result Performing Organization Address City/[facility]/ZIP Co de Phone Number [facility] [address] Department Tubular Labs [place], [place] [id number] * eGFR (05/09/2025 3:45 AM CDT) eGFR 72 >=60 mL/min/1. 73 m2 Comment: Interpretive Data [...] interpretive data was last reviewed 2021. Blood 05/09/2025 3:45 AM CDT 05/09/2025 3:48 AM CDT us Fifi Arrington MD LAB BLOOD ORDERABLES Final Resu lt Performing Organization Address [facility]/ZIP Co de Phone Number [facility] [address] [place] [address] * Magnesium (05/09/2025 3:45 AM CDT) Pathologist [facility] Magnesium 1.7 1.4 - 2.5 mg/dL Blood 05/09/2025 3:45 AM CDT 05/09/2025 3:48 AM CDT us La Maldonado MD LAB BLOOD ORDERABLES Final Res ult Performing Organization Address City/[facility]/ZIP Co de Phone Number [facility] [address] [place] [address] * (ABNORMAL) Comprehensive metabolic panel (05/09/2025 3:45 AM CDT) Sodium 138 135 - 145 mmol/L Potassium, pl 3.1(L) 3.3 - 4.9 mmol/L [facility] Chloride 99 97 - 110 mmol/L [facility] CO2 27 22 - 32 mmol/L [facility] Anion gap 12 2 - 15 mmol/L [facility] BUN 17 6 - 25 mg/dL [facility] Creatinine 0.85 0.60 - 1.10 mg/dL [facility] Glucose 140 70 - 199 mg/dL [facility] Comment: Interpretive Data Fasting glucose >/= 126 mg/dl is diagnostic for diabetes. Fasting is defined as no caloric intake for at least 8 hours. Fasting glucose between 100 mg/dl to 125 mg/dl is diagnostic of prediabetes. In a patient with classic symptoms of hyperglycemia or hyperglycemic crisis, a random glucose >/= 200 mg/dl is diagnostic for diabetes. In the absence of unequivocal hyperglycemia, results should be confirmed by repeat testing. The classification and Diagnosis of Diabetes Diabetes Care 202; 46: S19-S40. Current interpretive data was last revised 2022. Calcium 9.1 8.5 - 10.3 mg/dL [facility] Bilirubin, total 0.5 0.1 - 1.2 mg/dL [facility] Protein, pl 5.1(L) 6.5 - 8.5 g/dL [facility] Albumin 3.2(L) 3.5 - 5.0 g/dL [facility] Alk phos 154(H) 40 - 130 Units/L [facility] ALT 30 7 - 45 Units/L [facility] AST 31 10 - 45 Units/L [facility] Blood 05/09/2025 3:45 AM CDT 05/09/2025 3:48 AM CDT us Fifi Arrington MD LAB BLOOD ORDERABLES Final Resu lt [facility] [address] Department [place] [address] * POCT glucose (05/09/2025 12:12 AM CDT) [facility] Glucose, POC 185 70 - 199 mg/dL Comment: For Glucose values <35 mg/dl when Hematocrit is >60 mg/dl,the test may not accurately detect significant hypoglycemia,and testing in the Laboratory should be considered if clinically indicated. Blood 05/09/2025 12:1 2 AM CDT 05/09/2025 12:12 AM CDT Fifi Arrington MD LAB POCT ORDERABLES - DEVICE Fi nal Result Performing Organization Address [facility] Co de Phone Number [place] [address] Department of Laboratories [place], [place] [id number] * (ABNORMAL) Hepatic function panel (03/14/2025 1:36 PM CDT) [facility] Bilirubin, total 0.6 0.1 - 1.2 mg/dL Bilirubin, direct 0.3 0.1 - 0.3 mg/dL [facility] Protein, pl 6.6 6.5 - 8.5 g/dL [facility] Albumin 3.8 3.5 - 5.0 g/dL [facility] Alk phos 390(H) 40 - 130 Units/L [facility] ALT 78(H) 7 - 45 Units/L [facility] AST 74(H) 10 - 45 Units/L [facility] Blood 03/14/2025 1:36 PM CDT 03/14/2025 8:52 PM CDT Filippo Carpenter MD LAB BLOOD ORDERABLES Fin al Result Performing Organization Address [facility] Co de Phone Number [facility] [address] Department [place] [address] * (ABNORMAL) Serum lipid panel (04/10/2016 10:35 PM CDT) [facility] Cholesterol 125 30 - 200 mg/dl CDR HISTORICAL RESULTS Comment: Interpretive Data Desirable: <200 mg/dL Borderline high: 200-239 mg/dL High: > or = 240 mg/dL Literature Reference: National Cholesterol Education Program (NCEP) Expert Panel on Detection, Evaluation, and Treatment of High Blood Cholesterol in Adults (Adult Treatment Panel III). Circulation 2004; 110:227. Current interpretive data was last revised on 2015. Triglycerides 193(H) 0 - 150 mg/dl CDR HISTORICAL RESULTS Comment: Interpretive Data Desirable: < 150 mg/dL Borderline High: 150 - 199 mg/dL High: 200 - 499 mg/dL Very High: > or = 499 mg/dL Literature Reference: See Cholesterol Current interpretive data was last revised on 2015. HDL 30(L) >=40 mg/dl CDR HISTORICAL RESULTS Comment: Interpretive Data Less than 40 mg/dL - low; A major risk factor for heart disease. Greater than or equal to 60 mg/dL - High; considered protective of heart disease. Literature Reference: See Cholesterol Current interpretive data was last revised on 2015. LDL 56 10 - 129 mg/dl CDR HISTORICAL RESULTS Comment: Interpretive Data Optimal: < 100 mg/dL Near Optimal: 100 - 129 mg/dL Borderline High: 130 - 159 mg/dL High: 160 - 189 mg/dL Very high: > or = 190 mg/dL Literature Reference: See Cholesterol Current interpretive data was last revised on 2015. Non-HDL cholesterol, calculated 95 mg/dl CDR HISTORICAL RESULTS Comment: Interpretive Data When triglycerides are >200 mg/dL, non-HDL C is a secondary target of therapy, with a goal 30 mg/dL higher than the identified LDL-C goal. Reference: See Cholesterol Reference. Current interpretive data was last revised 2015. Serum 04/10/2016 10:3 5 PM CDT [facility] LAB BLOOD ORDERABLES Final Re sult CDR HISTORICAL RESULTS from Last 3 Months or Most Recently Relevant to Health Maintenance Insurance [employer] PPO [employer] P[employer] Advance Directives For more information, please contact: [phone] * Full Code (Latest Code Status on File) Date Activated Date Inactivated Comments 05/08/2025 8:28 PM 05/10/2025 7:50 PM Care Teams Furniture Finisher Helper Relationship Specialty Start Date End Date Parminder Rojas MD PCP - General 01/19/14 Yannick Guevara MD [address] [id number] [place] [address] Surgeon Colon and Rectal Surgery 02/07/21 Ayde Peña MD [address] [place] [address] Referring Physician Family Medicine 02/07/21
[2025-06-05 16:02] VITALS: BP 118/72; PULSE 100; RESP 20; O2SAT 98
[2025-06-05 16:16] LABS: Hematocrit 38.2 % (37.0-47.0); Hemoglobin 12.0 g/dL (12.0-15.0); Immature Granulocyte Percent A 0.7 % (0-0.5); Lymphocytes Absolute Auto 1.23 K/mm3 (0.9-3.2); Mean Corpuscular HGB Conc 31.4 g/dl (32-36); Mean Corpuscular Hemoglobin 27.7 pg (26-34); Mean Corpuscular Volume 88.2 fl (80-100); Nucleated Red Blood Cells Absolute Auto 0.000 K/mm3 (0.0-0.012); Nucleated Red Blood Cells Perc 0.0 % (0.0-0.2); Platelet Count Result 319 k/mm3 (150-375); Red Blood Count 4.33 M/mm3 (4.2-5.4); White Blood Count 8.3 K/mm3 (4.5-10.0)
[2025-06-05 16:32] VITALS: BP 138/78; PULSE 106; RESP 20; O2SAT 98
[2025-06-05 16:44] LABS: Alanine Aminotransferase 21 U/L (6-35); Albumin Level 3.5 g/dL (3.5-5.1); Alkaline Phosphatase 292 U/L (38-126); Anion Gap 3 mmol/L (4-12); Aspartate Amino Transferase 30 U/L (14-36); Bilirubin,Total 0.6 mg/dL (0.2-1.3); Blood Urea Nitrogen 19 mg/dL (7-17); Calcium 12.0 mg/dL (8.4-10.2); Carbon Dioxide 35 mmol/L (22-30); Chloride 94 mmol/L (98-107); Estimated CRCL calculation 39 ml/min; Estimated Glomerular Filt Rate 51; Glucose 101 mg/dL (65-110); Magnesium 1.8 mg/dL (1.6-2.3); Potassium 3.1 mmol/L (3.4-5.0); Sodium 132 mmol/L (137-145); Total Protein 6.8 g/dL (6.3-8.2)
[2025-06-05 16:49] LABS: NT Pro B Type Natriuretic Pept 1040 pg/mL (19.9-100)
--- OUTSIDE RECORDS SUMMARY | 2025-06-05 17:16 | XMS_ITS | Clinical Summary ---
Author Organization [facility] Address [address] [place] [address] Care Team Providers Care Meat Apprentice Name Role Phone Max Carpenter MD Unavailable [phone] Source Comments [facility],non-owned Affiliates and Associated Physician Practices is amultiple site organization consisting of ambulatory clinics and hospital sitesin [place], [place], [place] and [place]. This disclosure is being madepursuant to the Care Everywhere program and may not contain all information available regarding this patient. Last updated 18.[facility] Allergies Active Allergy Reactions Criticality Noted Date [...] on file Legal Sex Female 6:12 AM WORKERS' COMPENSATION MAGISTRATE Gender Identity Not on file Sexual Orientation Not on file Last Filed Vital Signs Vital Sign Reading Time Taken Comments Blood Pressure 134/68 07/22/2011 4:17 PM WORKERS' COMPENSATION MAGISTRATE Pulse 81 07/22/2011 4:17 PM WORKERS' COMPENSATION MAGISTRATE Temperature 36.9 C (98.5 F) 07/22/2011 4:17 PM WORKERS' COMPENSATION MAGISTRATE Respiratory Rate 18 07/22/2011 4:17 PM WORKERS' COMPENSATION MAGISTRATE Oxygen Saturation 96% 07/22/2011 4:17 PM WORKERS' COMPENSATION MAGISTRATE Inhaled Oxygen Concentration - - Weight 104.3 kg (230 lb) 07/22/2011 6:45 AM WORKERS' COMPENSATION MAGISTRATE Height 160 cm (5' 3) 07/22/2011 6:45 AM WORKERS' COMPENSATION MAGISTRATE Body Mass Index 40.74 07/22/2011 6:45 AM WORKERS' COMPENSATION MAGISTRATE Plan of Treatment Health Maintenance Due Date [...] age to complete this topic Insurance [employer] [facility] A[employer]NA [facility]IC[facility] ADV SELF PAY NO INSURANCE Member Subscriber Plan / Payer (Ef fective for All Dates) Name:Laura Valenzuela Member ID:Not on file Relation to Subscriber:Not on file Name:LAURA VALENZUELA Subscriber ID:Not on file Address: [address] [place] [address] [place] [address] Payer ID:Not on file Group ID:Not on file Type:Self Pay Address: [place], [place] Advance Directives * FULL RESUSCITATION (Latest Code Status on File) Date Activated Date Inactivated Comments 07/22/2011 12:27 PM 07/23/2011 6:58 AM Care Teams Meat Apprentice Relationship Specialty Start Date End Date Max Carpenter MD Physician Rheumatology 08/10/11
--- OUTSIDE RECORDS SUMMARY | 2025-06-05 17:16 | XMS_ITS ---
Author Name Machelle Mendoza Address [address] [facility] [address] [facility] [place] [address] Phone [phone] Organization [facility] Care Team Providers Care Booking Police Officer Name Role Phone Fanta Ernestina Unavailable [phone] Primarily Home Tier 1 RN (ACOSTA), Claudine mariaaildequan Unavailable Filippo Carpenter Unavailable [phone] LEANDRO BARTHOLOMEW Unavailable [phone] TERRENCE HOWELL Unavailable [phone] Reason for Referral Not Available Allergies, adverse [...] 30 minutes total time on encounter [facility] 01/25/2025 Chronic obstructive pulmonary disease, unspecifiedChronic atrial fibrillation, unspecifiedHyperlipidemia, unspecifiedLocalized edemaRestless legs syndromeDependence on supplemental oxygenType 2 diabetes mellitus without complicationsRheumatoid arthritis, unspecifiedGastro-esophageal reflux disease without esophagitis Home visit for evaluation and management of new patient requiring medically appropriate examination and low level of medical decision making. If using time, at least 30 minutes total time on encounter [facility] 01/25/2025 Rheumatoid arthritis , unspecified Home visit for evaluation and management of new patient requiring medically appropriate examination and low level of medical decision making. If using time, at least 30 minutes total time on encounter [facility] 01/25/2025 Rheumatoid arthritis , unspecified Home visit for evaluation and management of new patient requiring medically appropriate examination and moderate level of medical decision making. If using time, at least 60 minutes total time on enco [facility] 05/19/2025 Chronic obstructive pulmonary disease, unspecifiedChronic atrial [...] 60 minutes total time on enco [facility] 05/19/2025 Rheumatoid arthritis , unspecified Home visit for evaluation and management of new patient requiring medically appropriate examination and moderate level of medical decision making. If using time, at least 60 minutes total time on [facility] 05/19/2025 Chronic atrial fibri llation, unspecified Home visit for evaluation and management of new patient requiring medically appropriate examination and moderate level of medical decision making. If using time, at least 60 minutes total time on [facility] 05/19/2025 Rheumatoid arthritis , unspecified Vital Signs [...] least 30 minutes [place] time on encounter [id number] 2025-01-25 No Data Available No Data Availa [...] least 60 minutes [place] [id number] 2025-05-19 No Data Available No Data Availa [...] bedtimemanaged by PCPsee #1chronic; unsure of last P6Somyadljk metformin 500 mg once daily and Mounjaro weekly injectionmonitor carbohydrate intakechroniccontinue leflunomide 20 mg once dailymanaged and followed by rheumatologychronic; stablecontinue pantoprazole 40 mg once dailyavoid any food triggers 2025-05-19 09:15:00 [facility] Re[facility] twice weekly into July. [...] with leflunomide.Well controlled. Managed with pantoprazoleManaged with Jcohalh9fw hand smoke. Managed with Arformoterol inhalant and [...] 2025-05-19 Primarily Home progr am contacted by [facility] CM after a hospital discharge. 2025-05-19 Currently getting [facility]. RN initial visit for med reconciliation on [...] weak. A week later she went to [place] after a fall. She was stuck between the car and the wall. Had to call EMS. She was admitted to [place] for 2 weeks. The plan was to go to [facility] for rehab. Then discussed having surgery on neck, so she was transferred to [facility]. She was admitted for 2 days and [...]
--- OUTSIDE RECORDS SUMMARY | 2025-06-05 17:16 | XMS_ITS | Encounter Summary ---
Author Organization [facility] Address [address] [place] [address] Care Team Providers Care Pantograph Setter Name Role Phone Filippo Carpenter MD Unavailable [phone] Encounter Details Date Type Department Care Team (Late st Contact Info) Description 01/27/2019 Lab Requisition [facility] [address] [facility] [place] [address] Bettina Espino DO [address] [place] [address] Social History Tobacco Use Types Packs/Day Years Used Date Smoking Tobacco: Never Alcohol Use Standard Drinks/Week Comments No 0 (1 standard drink = 0.6 oz pur e alcohol) Comments No Sex and Gender Information Value Date Recorded Sex Assigned at Not on file Legal Sex Female 6:12 AM SIMPLEX OPERATOR Gender Identity Not on file Sexual Orientation Not on file documented as of this encounter Plan of Treatment Not on file documented as of this encounter Procedures Procedure Name Priority Date/Time Associated Diagnosis Comments DERMATOPATHOLOGY Routine 01/26/2019 12:0 0 AM CDT documented in this encounter Results * DERMATOPATHOLOGY (01/26/2019 12:00 AM CDT) Case Report Dermatopathology Report Case: [id number] Authorizing Provider: Bettina Espino DO Collected: 01/26/2019 [...] The specimen consists of a shave measuring [id number]. Jar 0. 12:24 PM CDT DERMATOPATHOLOGY LABORATORY [...] characteristic determined by the Dermatopathology Laboratory at [facility], directed by Dr. Krys Villagran. These tests need not be, and therefore are not, approved by the [place] Food and Drug Administration. The tests are used for clinical purposes. Billing Codes Specimen Charges Stain Charges 94444 1 12:24 PM CDT DERMATOPATHOLOGY LABORATORY Embedded Images 12:24 PM CDT DERMATOPATHOLOGY LABORATORY Pathology/Cytolog y TISSUE SPECIMEN FROM SKIN / Unknown 01/26/2019 01/27/2019 10:42 AM CDT Bettina Espino DO LAB - PATHOLOGY/CYTOLOGY ORDERABLES Final Result DERMATOPATHOLOGY LABORATORY [facility] - Department of Dermatology [address] [place] [address], 5th Floor Lab [address] [phone] documented in this encounter Visit Diagnoses Not on filedocumented in this encounter Care Teams Pantograph Setter Relationship Specialty Start Date End Date Filippo Carpenter MD Physician Rheumatology 08/10/11 documented as of this encounter
--- OUTSIDE RECORDS SUMMARY | 2025-06-05 17:16 | XMS_ITS | Clinical Summary ---
Author Organization [facility] Address [address] [place] [address] Care Team Providers Care Knit Goods Press Hand Name Role Phone Parminder Rojas MD [...] - 1-dose 75+ series) 02/12/[address] [place] [address] A[employer] PPO MCR Care Teams Knit Goods Press Hand Relationship Specialty Start Date End Date Parminder Rojas MD [address] [place] [address] PCP - General Family Practice 02/04/22
--- OUTSIDE RECORDS SUMMARY | 2025-06-05 17:16 | XMS_ITS | Encounter Summary ---
Author Organization [facility] Address [address] [facility] [place] [address] Care Team Providers Care Automobile Relocation Engineer Name Role Phone Filippo Carpenter MD Unavailable [phone] Encounter Details Date Type Department Care Team (Late st Contact Info) Description 07/19/2020 Lab Requisition [facility] [address] [facility] [place] [address] Zora Gilmore MD [address] [facility] [address] [place] [address] Social History Tobacco Use Types Packs/Day Years Used Date Smoking Tobacco: Never Alcohol Use Standard Drinks/Week Comments No 0 (1 standard drink = 0.6 oz pur e alcohol) Comments No Sex and Gender Information Value Date Recorded Sex Assigned at Not on file Legal Sex Female 6:12 AM SEPARATIONS SCIENTIST Gender Identity Not on file Sexual Orientation Not on file documented as of this encounter Plan of Treatment Not on file documented as of this encounter Procedures Procedure Name Priority Date/Time Associated Diagnosis Comments DERMATOPATHOLOGY Routine 07/18/2020 12:0 0 AM SEPARATIONS SCIENTIST documented in this encounter Results * DERMATOPATHOLOGY (07/18/2020 12:00 AM SEPARATIONS SCIENTIST) Case Report Dermatopathology Report Case: [id number] Authorizing Provider: Zora Gilmore MD Collected: 07/18/2020 12:00 AM Ordering Location: [facility] Lab Received: 07/19/2020 05:55 AM Pathologist: Miranda Brennan MD Specimen: Skin, nose tip 0 7:17 PM [facility] DERMATOPATHOLOGY LABORATORY Final Diagnosis Specimen A. SKIN, nose tip: ACTINIC KERATOSIS (L57.0) (see microscopic description) 0 7:17 PM [facility] DERMATOPATHOLOGY LABORATORY at [address] [facility] Clinical History R/O BCC,AK 0 7:17 PM [facility] DERMATOPATHOLOGY LABORATORY Gross Description Specimen A: Received is one formalin filled container labeled with the patient's name and designated nose tip. The specimen consists of a shave biopsy measuring 3x3x1 mm. Jar 0. 0 7:17 PM [facility] DERMATOPATHOLOGY LABORATORY Microscopic Description [...] characteristic determined by the Dermatopathology Laboratory at [facility], directed by Dr. Krys Villagran. These tests need not be, and therefore are not, approved by the [place] Food and Drug Administration. The tests are used for clinical purposes. Billing Codes Specimen Charges Stain Charges 33669 1 0 7:17 PM SEPARATIONS SCIENTIST DERMATOPATHOLOGY LABORATORY Embedded Images 0 7:17 PM [facility] DERMATOPATHOLOGY LABORATORY Pathology/Cytolog y TISSUE SPECIMEN FROM SKIN / Unknown 07/18/2020 07/19/2020 5:55 AM [facility] us Zora Gilmore MD LAB - PATHOLOGY/CYTOLOGY ORD ERABLES Final Result DERMATOPATHOLOGY LABORATORY [facility] - Department of Dermatology [address], [address] [phone] documented in this encounter Visit Diagnoses Not on filedocumented in this encounter Care Teams Automobile Relocation Engineer Relationship Specialty Start Date End Date Filippo Carpenter MD Physician Rheumatology 08/10/11 documented as of this encounter
--- OUTSIDE RECORDS SUMMARY | 2025-06-05 17:16 | XMS_ITS | Clinical Summary ---
Author Organization [facility] Address [address] [facility] [address] [place] [address] Phone Care Team Providers Care Automobile Mechanic Motor Name Role Phone Parminder Rojas MD Primary Care Provider [phone] Allergies Active Allergy Reactions Criticality Noted Date [...] UNIT Tablet Take by mouth. Activ e [place]-3 Fatty Acids (FISH OIL PO) Take by [...] Maintenance Insurance MEDICARE C AETNA Care Teams Automobile Mechanic Motor Relationship Specialty Start Date End Date Parminder Rojas MD [address] [address] PCP - General Family Medicine 04/08/18
[2025-06-05 17:17] LABS: Add Urine Microscopic? NO; Appearance Urine Clear (Clear); Glucose Urine UA Negative (Negative); Leukocyte Esterase Ur Negative LEU/UL (Negative); Nitrate Urine Negative (Negative); Specific Grav Ur 1.013 (1.001-1.035)
--- OUTSIDE RECORDS SUMMARY | 2025-06-05 17:17 | XMS_ITS | Clinical Summary ---
Author Organization [facility] Address [address] [place] [address] Care Team Providers Care Pastry Sous Chef Name Role Phone Parminder Rojas MD Primary Care Provider [phone] Yannick Guevara MD Unavailable [phone] Ayde Peña MD Unavailable [phone] Allergies Active Allergy Reactions Criticality Noted [...] 06/01/2025 3:00 PM CDT Home Care Visit [address] [place] [address] Sarah Henning, PT PT HOME VISIT 06/01/2025 10:30 AM CDT Home Care Visit [address] [place] [address] Rachel Cardozo, OT OT HOME VISIT 05/30/2025 3:30 PM CDT Home Care Visit [address] [place] [address] Sarah Henning, PT PT HOME VISIT 05/30/2025 Home Care Visit [address] [place] [address] Rachel Cardozo, OT TELEPHONE ENCOUNTER 05/25/2025 2:00 PM CDT Home Care Visit [address] [place] [address] Brenton Fonseca, PT PT HOME VISIT 05/25/2025 12:30 PM CDT Home Care Visit [address] [place] [address] Rachel Cardozo, OT OT HOME VISIT 05/23/2025 4:00 PM CDT Home Care Visit [address] [place] [address] Brenton Fonseca, PT PT HOME VISIT 05/23/2025 12:30 PM CDT Home Care Visit [address] [place] [address] Rachel Cardozo, OT OT HOME VISIT 05/19/2025 1:30 PM CDT Home Care Visit [address] [place] [address] Sarah Henning, PT PT HOME VISIT 05/16/2025 11:00 AM CDT Home Care Visit [address] [place] [address] Rachel Cardozo, OT OT INITIAL EVALUATION 05/16/2025 Home Care Visit [address] [place] [address] Rachel Cardozo, OT TELEPHONE ENCOUNTER 05/15/2025 Home Care Visit [address] [place] [address] Marika Koch, RN HH NURSE MED RECON FOR THERAPY 05/15/2025 Plan of Care Documentation [address] [place] [address] 05/12/2025 11:00 AM CDT Home Care Visit [address] [place] [address] Brenton Fonseca, PT PT OASIS START OF CARE 05/12/2025 Home Care Visit [address] [place] [address] Brenton Fonseca, PT TELEPHONE ENCOUNTER 05/11/2025 Telephone [facility] [address] [place] [address] Sharyn Cotton 05/08/2025 8:21 PM CDT - 05/10/2025 3:49 PM CDT Hospital Encounter [facility] [address] [place] [address] Fifi Arrington MD Shimotani, Dorian Genki, DO Rajab, Rawan A., MD Cervical spondylosis [M47.812] (Primary Dx) Discharge Disposition: Discharge to home, home health skilled care 05/08/2025 Orders Only [facility] [address] [place] [address] Fifi Arrington MD 03/14/2025 7:30 PM CDT - 03/14/2025 11:59 PM CDT Hospital Encounter [id number] [place] [address] Discharge Disposition: Discharge to home [...] often do you attend chur ch or buddhism services? Never 05/09/2025 Do you belong to any clubs o r organizations such as taoism groups, unions, fraternal or athletic groups, or [...] any time in the past 12 m cox [place], were you homeless or living in a fpc (including now)? 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 Gender Identity Not on file Sexual Orientation [...] ORDERABLES - DEVICE F inal Result [facility] [address] [place] [address] * POCT glucose (05/10/2025 6:07 [...] DEVICE F inal Result Performing Organization Address [facility] Co de Phone Number SARAH [facility] [address] [place] [address] * eGFR (05/10/2025 4:24 AM [...] ORDERABLES Final Res ult Performing Organization Address [facility]/ZIP Co de Phone Number SARAH [facility] [address] Department [place] [address] * Magnesium (05/10/2025 4:24 AM CDT) Magnesium 2.0 1.4 - 2.5 mg/dL Blood 05/10/2025 4:24 AM CDT 05/10/2025 5:36 AM CDT La Maldonado MD LAB BLOOD ORDERABLES Final Res ult Performing Organization Address [facility]/ZIP Co de Phone Number [facility] [address] [place] [address] * (ABNORMAL) Basic metabolic panel (05/10/2025 4:24 AM CDT) [facility] Sodium 139 135 - 145 mmol/L Potassium, pl 3.2(L) 3.3 - 4.9 mmol/L [facility] Chloride 99 97 - 110 mmol/L [facility] CO2 28 22 - 32 mmol/L [facility] Anion gap 12 2 - 15 mmol/L [facility] BUN 12 6 - 25 mg/dL [facility] Creatinine 0.86 0.60 - 1.10 mg/dL [facility] Glucose 131 70 - 199 mg/dL [facility] Comment: Interpretive Data Fasting glucose >/= 126 [...] 2022. Calcium 9.0 8.5 - 10.3 mg/dL [facility] Blood 05/10/2025 4:24 AM CDT 05/10/2025 5:36 AM CDT La Maldonado MD LAB BLOOD ORDERABLES Final Res ult Performing Organization Address [facility]/ZIP Co de Phone Number [facility] [address] Department [place] [address] * POCT glucose (05/09/2025 8:37 PM CDT) [...] DEVICE F inal Result Performing Organization Address [facility] Co de Phone Number [facility] [address] [facility] [place] [address] * POCT glucose (05/09/2025 4:42 PM CDT) [...] DEVICE F inal Result Performing Organization Address [facility] Co de Phone Number [facility] [address] Department [place] [address] * ECG 12 lead (05/09/2025 2:10 PM CDT) 05/09/2025 2:10 PM CDT Narrative [facility] - 05/10/2025 9:17 AM CDT Vent Rate: 86 bpm RR Interval: 697 msec MA Interval: 203 msec QRS Duration: 117 msec QT Interval: 381 msec QTC Interval: 424 msec P-R-T Kirk: 49 - -46 - 27 degrees IMPRESSION: SINUS RHYTHM INCOMPLETE RIGHT BUNDLE BRANCH BLOCK LEFT ANTERIOR FASCICULAR BLOCK POOR R-WAVE PROGRESSION ABNORMAL ECG Electronically Signed By: Julien Torres MD [facility] La Maldonado MD ECG ORDERABLES Final Result Performing Organization Address [facility] Phone Number [facility] * POCT glucose (05/09/2025 11:25 [...] DEVICE F inal Result Performing Organization Address [facility] Phone Number [facility] [address] Department [place] [address] * aPTT (05/09/2025 10:29 AM CDT) [facility] aPTT 33 26 - 38 sec Comment: Interpretive Data Heparin therapeutic range: 66.0 - 100.0 seconds. Range based on correlation with therapeutic heparin activity range of 0.3 - 0.7 Units/mL. Current interpretive data was last revised on 2023. Blood 05/09/2025 10:2 9 AM CDT 05/09/2025 10:46 AM CDT Obed Goyal DO LAB BLOOD ORDERABLES F inal Result Performing Organization Address [facility] de Phone Number [facility] [address] Department [place] [employer] [address] * Protime-INR (05/09/2025 10:29 AM CDT) Pathologist [facility] PT 13.5 10.2 - 13.5 sec INR 1.20 0.90 - 1.20 [facility] Comment: Interpretive data Oral anticoagulant therapeutic ranges: Venous thromboembolism prophylaxis or treatment: 2.0-3.0 CARDIOLOGY Standard range: 2.0-3.0 High-intensity range: 2.5-3.5 Refer to indication-specific guidelines for appropriate target ranges for prosthetic heart valve replacement. Current interpretive data was last revised on 2019. Blood 05/09/2025 10:2 9 AM CDT 05/09/2025 10:46 AM CDT Obed Goyal DO LAB BLOOD ORDERABLES F inal Result Performing Organization Address City/[facility]/ZIP Co de Phone Number [facility] [address] Department [place] [address] * Magnesium - Add on lab test (05/09/2025 9:24 AM CDT) Acceptable Yes Blood 05/09/2025 9:24 AM CDT 05/09/2025 9:25 AM CDT Narrative [facility] - 05/09/2025 9:25 AM CDT Name of Test->Magnesium La Maldonado MD LAB BLOOD ORDERABLES Final Res ult Performing Organization Address City/[facility] Co de Phone Number [facility] [address] Department [place] [address] * (ABNORMAL) Differential, auto (05/09/2025 6:18 AM CDT) Neutrophil abs 4.95 1.50 - 6.50 K/cumm Imm gran abs 0.11(H) 0.00 - 0.10 K/cumm [facility] Lymphocyte abs 1.33 0.80 - 3.30 K/cumm [facility] Monocyte abs 1.12(H) 0.20 - 0.80 K/cumm [facility] Eosinophil abs 0.34 0.00 - 0.50 K/cumm [facility] Basophil abs 0.07 0.00 - 0.10 K/cumm [facility] Neutrophil pct 62.5 % [facility] Comment: Interpretive Data Percent cell count reference ranges are not reported, since discordance with absolute values may lead to misinterpretation of CBC data. Current Interpretive Data was last revised on 2017. Imm gran pct 1.4 % [facility] Comment: Interpretive Data Percent cell count reference ranges are not reported, since discordance with absolute values may lead to misinterpretation of CBC data. Current Interpretive Data was last revised on 2017. Lymphocyte pct 16.8 % [facility] Comment: Interpretive Data Percent cell count reference ranges are not reported, since discordance with absolute values may lead to misinterpretation of CBC data. Current Interpretive Data was last revised on 2017. Monocyte pct 14.1 % [facility] Comment: Interpretive Data Percent cell count reference ranges are not reported, since discordance with absolute values may lead to misinterpretation of CBC data. Current Interpretive Data was last revised on 2017. Eosinophil pct 4.3 % [facility] Comment: Interpretive Data Percent cell count reference ranges are not reported, since discordance with absolute values may lead to misinterpretation of CBC data. Current Interpretive Data was last revised on 2017. Basophil pct 0.9 % [facility] Comment: Interpretive Data Percent cell count reference ranges are not reported, since discordance with absolute values may lead to misinterpretation of CBC data. Current Interpretive Data was last revised on 2017. Blood 05/09/2025 6:18 AM CDT 05/09/2025 6:18 AM CDT us Fifi Arrington MD LAB BLOOD ORDERABLES Final Resu lt [facility] [address] [place] [address] * (ABNORMAL) CBC with auto differential (05/09/2025 6:18 AM CDT) WBC 7.92 3.80 - 9.90 K/cumm Hgb 11.4(L) 11.9 - 15.5 g/dL [facility] Hct 35.5(L) 35.6 - 45.5 % [facility] Plt 198 150 - 400 K/cumm [facility] MPV 11.7 9.1 - 12.3 fL [facility] RBC 3.92 3.90 - 5.20 M/cumm [facility] MCV 90.6 81.3 - 96.4 fL [facility] MCH 29.1 27.1 - 33.3 pg [facility] MCHC 32.1(L) 32.3 - 35.7 g/dL [facility] RDW CV 16.7(H) 11.1 - 14.9 % [facility] RDW SD 53.6(H) 35.7 - 48.1 fL [facility] NRBC abs 0.00 0.00 - 0.01 K/cumm [facility] Blood 05/09/2025 6:18 AM CDT 05/09/2025 6:18 AM CDT us Fifi Arrington MD LAB BLOOD ORDERABLES Final Resu lt Performing Organization Address City/[facility]/ZIP Co de Phone Number [facility] [address] [place] [address] * POCT glucose (05/09/2025 6:11 AM CDT) [facility] Glucose, POC 116 70 - 199 mg/dL Comment: For Glucose values <35 mg/dl when Hematocrit is >60 mg/dl,the test may not accurately detect significant hypoglycemia,and testing in the Laboratory should be considered if clinically indicated. Blood 05/09/2025 6:11 AM CDT 05/09/2025 6:11 AM CDT Obed Goyal DO LAB POCT ORDERABLES - DEVICE Final Result Performing Organization Address City/[facility]/ZIP Co de Phone Number [facility] [address] Department [employer] [place], [place] [id number] * eGFR (05/09/2025 3:45 AM CDT) eGFR [...] ORDERABLES Final Resu lt Performing Organization Address [facility]/ZIP Co de Phone Number [facility] [address] [place] [address] * Magnesium (05/09/2025 3:45 AM CDT) Pathologist [facility] Magnesium 1.7 1.4 - 2.5 mg/dL Blood 05/09/2025 3:45 AM CDT 05/09/2025 3:48 AM CDT us La Maldonado MD LAB BLOOD ORDERABLES Final Res ult Performing Organization Address City/[facility]/ZIP Co de Phone Number [facility] [address] Department [place] [address] * (ABNORMAL) Comprehensive metabolic panel (05/09/2025 3:45 AM CDT) Sodium 138 135 - 145 mmol/L Potassium, pl 3.1(L) 3.3 - 4.9 mmol/L [facility] Chloride 99 97 - 110 mmol/L [facility] CO2 27 22 - 32 mmol/L [facility] Anion gap 12 2 - 15 mmol/L [facility] BUN 17 6 - 25 mg/dL [facility] Creatinine 0.85 0.60 - 1.10 mg/dL [facility] Glucose 140 70 - 199 mg/dL [facility] Comment: Interpretive Data Fasting glucose >/= 126 [...] 2022. Calcium 9.1 8.5 - 10.3 mg/dL [facility] Bilirubin, total 0.5 0.1 - 1.2 mg/dL [facility] Protein, pl 5.1(L) 6.5 - 8.5 g/dL [facility] Albumin 3.2(L) 3.5 - 5.0 g/dL [facility] Alk phos 154(H) 40 - 130 Units/L [facility] ALT 30 7 - 45 Units/L [facility] AST 31 10 - 45 Units/L [facility] Blood 05/09/2025 3:45 AM CDT 05/09/2025 3:48 AM CDT us Fifi Arirngton MD LAB BLOOD ORDERABLES Final Resu lt [facility] [address] [place] [address] * POCT glucose (05/09/2025 12:12 AM CDT) [facility] Glucose, POC 185 70 - 199 mg/dL Comment: For Glucose values <35 mg/dl when Hematocrit is >60 mg/dl,the test may not accurately detect significant hypoglycemia,and testing in the Laboratory should be considered if clinically indicated. Blood 05/09/2025 12:1 2 AM CDT 05/09/2025 12:12 AM CDT Fifi Arrington MD LAB POCT ORDERABLES - DEVICE Fi nal Result Performing Organization Address [facility] Co de Phone Number [place] [address] Department of Laboratories [place], [place] [id number] * (ABNORMAL) Hepatic function panel (03/14/2025 1:36 PM CDT) [facility] Bilirubin, total 0.6 0.1 - 1.2 mg/dL Bilirubin, direct 0.3 0.1 - 0.3 mg/dL [facility] Protein, pl 6.6 6.5 - 8.5 g/dL [facility] Albumin 3.8 3.5 - 5.0 g/dL [facility] Alk phos 390(H) 40 - 130 Units/L [facility] ALT 78(H) 7 - 45 Units/L [facility] AST 74(H) 10 - 45 Units/L [facility] Blood 03/14/2025 1:36 PM CDT 03/14/2025 8:52 PM CDT Filippo Carpenter MD LAB BLOOD ORDERABLES Fin al Result Performing Organization Address [facility] Co de Phone Number [facility] [address] [place] [address] * (ABNORMAL) Serum lipid panel (04/10/2016 10:35 PM CDT) [facility] Cholesterol 125 30 - 200 [...] Advance Directives For more information, please contact: [phone] * Full Code (Latest Code Status on File) Date Activated Date Inactivated Comments 05/08/2025 8:28 PM 05/10/2025 7:50 PM Care Teams Pastry Sous Chef Relationship Specialty Start Date End Date Parminder Rojas MD PCP - General 01/19/14 Yannick Guevara MD [address] [facility] [phone] [place] [address] Surgeon Colon and Rectal Surgery 02/07/21 Ayde Peña MD [address] [place] [address] Referring Physician Family Medicine 02/07/21
--- NOTE | 2025-06-05 17:58 | PCCCNOTE ---
1745 called to the ED to speak with the family about pt getting placed in a prison. The is having a hard time caring for her at home. They declined placing her any where at this time. They wanted to be admitted so she could be transferred again to a higher level of care for a neurosurgeon to do surgery on her neck. Pt was here one month ago and transferred to [facility] for surgery, but once there, the surgeon said he would not do the surgery because she didn't need it. Pt is having more difficulty with her strength and her hands, but can't find a doctor that they like. Recommended calling offices in the morning to the facilities that they are trying to get into. Pt. needs assistance getting into the house, requested that the call one of their adult children to come and help her. The daughter and son-in-law will meet them at home.
[2025-06-05 18:45] VITALS: BP 117/90; PULSE 108; RESP 16; O2SAT 96
== END 2025-06-05 18:45 | disposition home or self-care (01) ==
PROVIDERS: Nurse Practitioner Family; Emergency Provider Family Medicine; PCP Family Medicine
DX: R53.1 Weakness (principal); I10 Essential (primary) hypertension; I27.20 Pulmonary hypertension, unspecified; I40.1 Isolated myocarditis; I25.10 Atherosclerotic heart disease of native coronary artery without angina pectoris; I48.0 Paroxysmal atrial fibrillation; J44.9 Chronic obstructive pulmonary disease, unspecified; J96.11 Chronic respiratory failure with hypoxia; Z99.81 Dependence on supplemental oxygen; E78.5 Hyperlipidemia, unspecified; E87.1 Hypo-osmolality and hyponatremia; E11.21 Type 2 diabetes mellitus with diabetic nephropathy; D50.9 Iron deficiency anemia, unspecified; K21.9 Gastro-esophageal reflux disease without esophagitis; K86.81 Exocrine pancreatic insufficiency; M35.3 Polymyalgia rheumatica; G25.81 Restless legs syndrome; Z95.1 Presence of aortocoronary bypass graft; Z95.5 Presence of coronary angioplasty implant and graft; Z87.01 Personal history of pneumonia (recurrent); Z86.73 Personal history of transient ischemic attack (TIA), and cerebral infarction without residual deficits; Z86.16 Personal history of COVID-19; Z96.653 Presence of artificial knee joint, bilateral; Z98.42 Cataract extraction status, left eye; Z77.22 Contact with and (suspected) exposure to environmental tobacco smoke (acute) (chronic); Z79.01 Long term (current) use of anticoagulants; Z79.899 Other long term (current) drug therapy; Z79.84 Long term (current) use of oral hypoglycemic drugs; I45.2 Bifascicular block; I47.19 Other supraventricular tachycardia; I49.1 Atrial premature depolarization
CPT/HCPCS: 36415; 80053; 81003; 83735; 83880; 85025; 93005; 99283

== ENCOUNTER 2025-07-07 01:14 | Inpatient (IN) | payer OTHER, SELFPAY ==
--- OUTSIDE RECORDS SUMMARY | 2025-06-07 05:30 | XMS_ITS ---
Author Organization [facility] Address [address] [facility] [address] [place] [address] Care Team Providers Care Reinspector Name Role Phone Sammie RONDON, Parminder Primary Care Provider Unavail able Filippo Jenkins Unavailable [phone] Allergies Allergen (clinical drug ingredient) Drug/Non Drug [...] Nonsmoker Encounters Encounter Location Date Provider Diagnosis [facility] [address] [facility] [address] [place] [address] 06/07/2025 Filippo Jenkins Other correction (current) drug therapy Z79.899 and Other specified rheumatoid arthritis, 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 Assessments Encounter Date Diagnosis (ICD Code) Assessment Notes Treatment Notes Treatment Clinical Notes Section Notes 06/07/2025 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 (ICD-10 - Z79.899) 06/07/2025 Other specified rheumatoid arthritis, multiple sites (ICD-10 - M06.89) Plan Of Treatment Next Appt Details Follow Up: 3 Months, Reason: Progress Notes * Laura CLIFFORD ADOB:[birth year] (75 yo F)Acc No.[id number]:06/07/2025 Progress Notes Patient: Phylicia Laura CASEY Appointment Provider: Nithin Jenkins MD :1950 A ge:75 Y S ex:Female Date:06/07/2025 Address:[address] [place] [address] , [place], [id number] Pcp:Parminder Cochran MD Subjective: * Chief Complaints: [...] multiple sites - M06.89 (Primary) 2 .?Other correction (current) drug therapy - Z79.899 Plan: * Treatment: * Procedure Codes: G 2211 Complex e/m visit add on * Follow Up: 3 Months * Billing Information: * Visit Code: 90875 Office Visit, Est Pt., Level 4. * Procedure Codes: G2211 Complex e/m visit add on. * Electronic signature of Wenceslao Jenkins MD on 07/07/2025 at 04:15 AM [employer] ATTENDANT Sign off status: Pending * Appointment Provider: Nithin Jenkins MD Date: Generated for Printing/Faxing/eTransmitting on: 09/06/2024 04:15 AM [employer] B[employer] ATTENDANT History and Physical Notes * Examination Category [...]
[2025-07-07] VITALS (11 sets, daily range): BP systolic 98–188; BP diastolic 53–83; PULSE 72–101; RESP 15–26; TEMP 36.6–36.8; O2SAT 94–100; BMI 35.4
--- NOTE | ~2025-07-07 | XR_ITS ---
Examination: XR chest 1V portable Clinical History: RESP FAILURE Comparison: 07/18/2025 Technique: Portable AP Findings: Left PICC. Heart size normal. Persistent diffuse interstitial markings. Left basilar patchy opacity. No acute bony abnormality. IMPRESSION: 1. Persistent interstitial pulmonary edema with left basilar atelectasis and/or airspace disease. 2. Suspect left pleural effusion. 3. Superimposed airspace disease not excluded. Reviewed, dictated and finalized at location R. BULANCE DISPATCHER IMPRESSION: 1. Persistent interstitial pulmonary edema with left basilar atelectasis and/o r airspace disease. 2. Suspect left pleural effusion. 3. Superimposed airspace disease not excluded.
--- NOTE | ~2025-07-07 | XR_ITS ---
EXAMINATION: XR chest 1V portable DATE: 07/08/2025 05:27 INDICATION: Pulmonary edema TECHNIQUE: frontal view of the chest was obtained. COMPARISON: Chest radiograph dated 04/27/[address] dated 07/07/2025 FINDINGS: Patient is rotated towards the left. There are scattered patchy airspace opacities throughout both lungs most prominent in the lateral upper and left lower lung zones. Mild diffuse increased interstitial pattern. Mild blunting at the left costophrenic and right cardiophrenic angles consistent with very small bilateral pleural effusions. No pneumothorax. Calcified nodule right midlung zone consistent with old granulomatous disease. Heart size is normal. Median sternotomy wires and mediastinal surgical clips are seen, likely from prior coronary artery bypass grafting. Mitral valve repair. Instrumented lower cervical anterior spinal fusion with anterior plate-screw fixation. Right reverse total shoulder arthroplasty. IMPRESSION: 1. Interstitial and airspace opacities throughout both lungs mild pulmonary edema, pneumonia or combination of both. 2. Very small bilateral pleural effusions. Reviewed, dictated and finalized at location A. RINK ATTENDANT IMPRESSION: 1. Interstitial and airspace opacities throughout both lungs mild pulmonary adrienne ma, pneumonia or combination of both. 2. Very small bilateral pleural effusions.
--- NOTE | ~2025-07-07 | XR_ITS ---
EXAMINATION: XR chest 1V portable COMPARISON: No comparisons available. HISTORY: Resp Failure FINDINGS: Moderate pulmonary venous congestion. Small left upper and left lower lobe infiltrates. No pneumothorax. Mild cardiomegaly. Mediastinal and hilar contours are within normal limits. Post sternotomy. Miscellaneous: Left PICC line terminates in the SVC. Impression: CHF. Superimposed probable pneumonia. The findings appear slightly progressed compared to the previous exam Reviewed, dictated and finalized at location P. IAL EDUCATION PARA PROFESSIONAL Impression: CHF. Superimposed probable pneumonia. The findings appear slightly progressed c ompared to the previous exam
--- NOTE | ~2025-07-07 | XR_ITS ---
EXAM/PROCEDURE: XR abdomen obstructive series HISTORY: distended abdomen COMPARISON: November 24, 2022 TECHNIQUE: Abdominal series FINDINGS: Several loops of gaseous dilated bowel throughout the abdomen and pelvis. No large amount of free air or definite subphrenic free air seen. Schmidt catheter appears be present. Lung bases somewhat obscured with possible mild infiltrative changes present. Diffuse degenerative and osteopenic changes throughout the bones. IMPRESSION: 1. Nonspecific bowel gas pattern with multiple loops of gaseous dilated bowel. 2. Possible atelectatic or or infiltrative changes in the lung bases. Reviewed, dictated and finalized at location A. ES' ASSOCIATION COUNSELOR
--- NOTE | ~2025-07-07 | CT_ITS ---
CT HEAD NON-CONTRAST CT C-SPINE Clinical History: Fall Comparison: CT cervical spine 05/07/2025 CTA brain 04/30/2025 Technique: Unenhanced axial images skull base to vertex. Coronal, sagittal reformats. Axial images thoracic inlet to skull base. Sagittal and coronal reformats. CT images acquired with automatic exposure control for dose reduction DLP: 681 mGy-cm Findings: Head: White matter changes, typically chronic microvascular ischemic disease. Sulci, ventricles: Unremarkable. No intracerebral hemorrhage. No evidence acute territorial infarct. No mass effect, midline shift, intra-/extra-axial fluid collection. Bony calvarium intact. Visualized paranasal sinuses: Clear. Mastoid air cells: Bilateral fluid. C-spine: Pedicle screw and hayley C2-5. ACDF C5-6. Ill-defined postoperative changes and soft tissue fluid behind upper cervical spine. No acute fracture or listhesis. Moderate degenerative changes. Prevertebral soft tissues within normal limits. Visualized lung apices: Small left effusion. Extensive airspace disease. Visualized thyroid: Unremarkable. No enlarged cervical nodes. IMPRESSION: HEAD: 1. No acute intracranial findings. 2. Bilateral mastoiditis. C-SPINE: 1. No acute fracture. 2. Ill-defined fluid and postoperative changes posterior to upper cervical spine. 3. Extensive bilateral upper lung airspace disease, and left pleural effusion. Reviewed, dictated and finalized at location R. SSING MACHINE TENDER IMPRESSION: HEAD: 1. No acute intracranial findings. 2. Bilateral mastoiditis. C-SPINE: 1. No acute fracture. 2. Ill-defined fluid and postoperative changes posterior to upper cervical spi ne. 3. Extensive bilateral upper lung airspace disease, and left pleural effusion.
--- NOTE | ~2025-07-07 | XR_ITS ---
Examination: XR chest 1V portable Clinical History: Pneumonia, respiratory failure Comparison: 1 day prior Technique: Portable AP Findings: Cardiomegaly. Worsening diffuse bilateral airspace disease. Enlarging left pleural effusion. No acute bony abnormality. IMPRESSION: 1. Worsening pulmonary edema and/or multifocal airspace disease. 2. Enlarging left pleural effusion. Reviewed, dictated and finalized at location R. ERY SCHEDULER
--- NOTE | ~2025-07-07 | XR_ITS ---
EXAMINATION: XR_FLGTUBINS_CR DATE: 07/13/2025 14:42 INDICATION: Nasogastric tube insertion TECHNIQUE: 5 fluoroscopic images of the neck, chest and abdomen were obtained during placement of a nasogastric tube. The tube was fixed to the nares with adhesive tape following confirmation of positioning by fluoroscopy. The amount of fluoroscopy time used during this procedure was 2.3 minutes. The dose area product was 0.92 Gycm^2. COMPARISON: None. FINDINGS: Final image demonstrates nasogastric tube tip in proximal side port in the body the stomach. Postoperative change of prior median sternotomy and mitral valve repair. IMPRESSION: 1. Fluoroscopy utilized during placement of a nasogastric tube with distal tip in proximal side port in the body the stomach. Reviewed, dictated and finalized at location A. CHDOWN TOE FORMER
--- NOTE | ~2025-07-07 | XR_ITS ---
EXAMINATION: XR chest PICC line, 07/13/2025 8:10 AUTOMATIC OVEN OPERATOR HISTORY: PICC placement COMPARISON: No comparisons available. Technique: Single view. Findings: Mild pulmonary venous congestion. No pneumothorax. Mild cardiomegaly. Mediastinal and hilar contours are within normal limits. Poststernotomy. Left PICC line terminates in the SVC. Impression: Mild CHF Reviewed, dictated and finalized at location P. MATIC OVEN OPERATOR Impression: Mild CHF
--- NOTE | ~2025-07-07 | CT_ITS ---
EXAM/PROCEDURE: CT abdomen pelvis w con HISTORY: SBO vs Ileus COMPARISON: July 07, 2025 TECHNIQUE: IV contrast enhanced CT of the abdomen and pelvis performed. FINDINGS: Small to moderate bilateral pleural effusions, left greater than right have increased since the previous exam. Bibasilar compressive atelectatic changes and patchy areas of groundglass opacification also noted. Heart size upper limits normal. Coronary artery stenting and/or calcification, as well as sternal retention wires partially visualized. In the abdomen and pelvis, the bowel gas pattern is not obstructive with no free air or pneumatosis seen. Trace amount of free fluid present. The rectosigmoid region is fluid and gas-filled and mildly dilated. Indwelling urethral catheter. No hydroureteronephrosis. Gallbladder pancreas spleen stomach and adrenal glands and liver appear stable. No AAA. No acute arterial occlusion seen. 12 mm cyst left kidney unchanged. In the extra peritoneal soft tissues scattered areas of punctate gaseous foci are noted. Mild diffuse strandy changes are also present. IMPRESSION: 1. Increased size of pleural effusions which are small to moderate compared to small on the previous exam. Bibasilar atelectatic changes with possible developing consolidation and/or vascular congestion. 2. Fluid and gas dilated rectosigmoid region with findings suggestive of mild colitis and diarrhea process. 3. Extraperitoneal findings of uncertain significance possibly associated with the air foci associated with injections. Correlate clinically to exclude active inflammatory/infectious process in the extra peritoneal soft tissues. Reviewed, dictated and finalized at location A. NTER HELPER IMPRESSION: 1. Increased size of pleural effusions which are small to moderate compared to small on the previous exam. Bibasilar atelectatic changes with possible develop ing consolidation and/or vascular congestion. 2. Fluid and gas dilated rectosigmoid region with findings suggestive of mild c olitis and diarrhea process. 3. Extraperitoneal findings of uncertain significance possibly associated with the air foci associated with injections. Correlate clinically to exclude active inflammatory/infectious process in the extra peritoneal soft tissues.
--- NOTE | ~2025-07-07 | XR_ITS ---
EXAM/PROCEDURE: XR abdomen obstructive series HISTORY: Dilated bowel loops, ileus COMPARISON: X-rays from yesterday TECHNIQUE: KUB FINDINGS: Scattered loops of mildly distended small bowel throughout the abdomen and pelvis, with no large amount of free air. Bowel gas appears to extends through the large intestine. Schmidt catheter noted. IMPRESSION: Multiple loops of dilated small bowel could be associated with ileus; correlate clinically to exclude obstruction. Reviewed, dictated and finalized at location A. CRANE OPERATOR
--- NOTE | ~2025-07-07 | XR_ITS ---
EXAMINATION: XR chest 1V portable COMPARISON: No comparisons available. HISTORY: worsening PNA FINDINGS: Bilateral infiltrates. Small effusions. Moderate pulmonary venous congestion. No pneumothorax. Mild cardiomegaly. Mediastinal and hilar contours are within normal limits. Post sternotomy. Miscellaneous: None Impression: CHF. Superimposed pneumonia suspected Reviewed, dictated and finalized at location P. OR CONTROLS TECHNICIAN Impression: CHF. Superimposed pneumonia suspected
--- NOTE | ~2025-07-07 | XR_ITS ---
Examination: XR abdomen/kub 1V Clinical History: ADYNAMIC ILEUS, NG position Comparison: 1 day prior Technique: Portable AP supine abdomen Findings: Diffuse colonic gaseous distention persists but mildly decreased. Small bowel loops not well seen. Air-fluid levels cannot be assessed on supine projection. No other acute abnormality. IMPRESSION: 1. Persistent but decreased colonic gaseous distention, likely due to diarrheal process and/or colitis. Reviewed, dictated and finalized at location R. OTIC AIDE IMPRESSION: 1. Persistent but decreased colonic gaseous distention, likely due to diarrhea l process and/or colitis.
--- NOTE | ~2025-07-07 | XR_ITS ---
XR chest 1V portable 07/11/2025 05:15 Indication: Hypercapnic respiratory failure Procedure: AP portable chest Comparison: Comparison to multiple prior studies sequentially, with oldest reviewed study dated 12/21/2024. Findings: Status post median sternotomy for CABG. Borderline heart size. Mild interstitial edema. No significant effusion or pneumothorax. There is a prosthetic heart valve. No acute osseous abnormality. There is a right shoulder arthroplasty. Impression: 1: Mild interstitial edema. Reviewed, dictated and finalized at location B. OR MOBILE WEB DEVELOPER Impression: 1: Mild interstitial edema.
--- NOTE | ~2025-07-07 | XR_ITS ---
EXAMINATION: XR chest 1V portable DATE: 07/14/2025 05:16 INDICATION: Pulmonary edema or pneumonia TECHNIQUE: A single frontal view of the chest was obtained. COMPARISON: Yesterday FINDINGS: Bilateral patchy alveolar opacification similar in distribution; heart size remains mildly enlarged. Gastric catheter noted with tip projecting into the mid to lower body of the stomach. IMPRESSION: 1. Interval placement of gastric catheter which appears adequately positioned. Multifocal alveolar changes suggesting pulmonary edema and/or pneumonia similar to the yesterday's exam. Reviewed, dictated and finalized at location A. R OPTICS SUPERVISOR
--- NOTE | ~2025-07-07 | XR_ITS ---
Examination: XR chest 1V portable Clinical History: SHORTNESS OF BREATH Comparison: 07/19/2025 Technique: Portable AP Findings: Left PICC. Heart size normal. Persistent diffuse interstitial markings. Mild worsening bibasilar atelectasis and pleural effusions. No acute bony abnormality. IMPRESSION: 1. Worsening bibasilar atelectasis and/or airspace disease with small pleural effusions. 2. Persistent interstitial pulmonary edema and/or pneumonitis. Reviewed, dictated and finalized at location R. ONAL LINES ACCOUNT EXECUTIVE
--- NOTE | ~2025-07-07 | XR_ITS ---
EXAMINATION: XR chest 1V portable DATE: 07/13/2025 05:19 INDICATION: Pneumonia TECHNIQUE: A single frontal view of the chest was obtained. COMPARISON: Chest x-ray from yesterday FINDINGS: Alveolar opacification lung ruvalcaba appears significantly improved with mild persisting alveolar consolidation in the upper lobes left worse than right. The remainder the exam is unchanged. IMPRESSION: 1. Improved aeration of the lungs with persisting pulmonary edema or consolidations in the upper lobes left worse than right. Reviewed, dictated and finalized at location A. KEEPER IMPRESSION: 1. Improved aeration of the lungs with persisting pulmonary edema or consolidat ions in the upper lobes left worse than right.
--- NOTE | ~2025-07-07 | XR_ITS ---
Examination: XR abdomen/kub 1V Clinical History: ADYNAMIC ILEUS, NG position Comparison: CT abdomen pelvis 07/13/2025 Technique: Portable AP supine abdomen Findings: Gaseous distention of colonic loops from cecum to sigmoid. Small bowel loops not well seen. Air-fluid levels cannot be assessed on supine projection. No other acute bony abnormality. IMPRESSION: 1. Persistent colonic gaseous distention likely secondary to diarrheal process and/or colitis. Reviewed, dictated and finalized at location R. SIVE BONDING MACHINE OPERATOR
--- NOTE | ~2025-07-07 | CT_ITS ---
EXAMINATION: CT chest abdomen pelvis w con DATE: 07/07/2025 06:50 INDICATION: Fall. TECHNIQUE: Computed tomography (CT) of the chest, abdomen, and pelvis was performed with 100 mL Omnipaque 350 intravenous contrast. Automated exposure control and iterative reconstruction technique were employed. The dose-length product was 1224.61 mGy-cm. COMPARISON: Chest CT 12/21/2024 FINDINGS: CHEST CT: The lungs demonstrate smooth septal thickening. There are airspace opacities and nodules in the upper lobes. There are airspace opacities in left lower lobe. There is mild atelectasis in right lower lobe. A calcified right lung nodule is consistent with old granulomatous disease. There are small pleural effusions. The heart size is normal. There are changes of mitral valve replacement. There are coronary artery calcifications. No pericardial effusion. There is a total right shoulder arthroplasty. There are changes of anterior fusion procedure in cervical spine. There is moderate thoracic spondylosis. There is mild chronic anterior wedging of multiple vertebral bodies. ABDOMEN/PELVIS CT: The liver, gallbladder, spleen, pancreas, and adrenal glands are normal. There is cortical thinning of the kidneys. There is a 12 mm cyst in left kidney. There is wall thickening of the rectosigmoid. The appendix is normal. There are no dilated loops of bowel. There are no pathologically enlarged lymph nodes. There is no free intraperitoneal fluid. There is a benign bone island in the right femur. There is severe thoracic spondylosis. IMPRESSION: 1. Diffuse lung disease, likely a combination of pneumonia in the upper lobes and left lower lobe and mild pulmonary edema. 2. Small pleural effusions. 3. Colitis involving the rectosigmoid. Reviewed, dictated and finalized at location E. RITIES COUNSELOR IMPRESSION: 1. Diffuse lung disease, likely a combination of pneumonia in the upper lobes a nd left lower lobe and mild pulmonary edema. 2. Small pleural effusions. 3. Colitis involving the rectosigmoid.
--- NOTE | ~2025-07-07 | US_ITS ---
Ultrasound left upper extremity venous Doppler CLINICAL HISTORY: LUE edema . Comparison: None. TECHNIQUE: Grayscale, color, duplex/spectral Doppler sonography. FINDINGS/IMPRESSION: 1. No DVT. 2. Internal jugular vein could not be assessed given collar brace. 3. Superficial thrombus within cephalic vein. Reviewed, dictated and finalized at location R. UCT SCIENTIST
--- NOTE | ~2025-07-07 | XR_ITS ---
Examination: XR chest 1V portable Clinical History: Resp Failure Comparison: Chest x-ray [address] abdomen pelvis 2 days prior Technique: Portable AP Findings: NG tube, left PICC. Heart size normal. Left basilar atelectasis and pleural effusion persist. Persistent diffuse interstitial markings. No acute bony abnormality. IMPRESSION: 1. No significant change. 2. Left pleural effusion and basilar atelectasis 3. Right effusion poorly seen if it persists. Reviewed, dictated and finalized at location R. TATION INSPECTOR
--- NOTE | ~2025-07-07 | XR_ITS ---
Examination: XR chest 1V portable Clinical History: Resp Failure Comparison: 1 day prior Technique: Portable AP Findings: NG tube, left PICC. Heart size normal. Left basilar atelectasis and pleural effusion persist. No acute bony abnormality. IMPRESSION: 1. No significant change. 2. Left pleural effusion with associated basilar atelectasis persist. 3. Right pleural effusion poorly seen if it persists. Reviewed, dictated and finalized at location R. FOOD SALES ASSISTANT
--- NOTE | ~2025-07-07 | CT_ITS ---
EXAMINATION: CT brain wo brody, 07/10/2025 15:28 MUD ENGINEER HISTORY: r/o acute stroke COMPARISON: No comparisons available. Technique: Axial images obtained of the brain without contrast. One or more of the following dose reduction techniques were used: automated exposure control, adjustment of the mA and/or kV according to patient size, use of iterative reconstruction technique. Findings: No acute infarct or parenchymal hemorrhage. No abnormal mass or mass effect. No midline shift. No extra-axial fluid collections. No hydrocephalus. Mastoid air cells unremarkable. Sinuses and orbits unremarkable. No acute fracture. No significant facial or scalp soft tissue swelling evident. No radiopaque foreign body is seen. Impression: 1.No acute intracranial abnormality. Reviewed, dictated and finalized at location P. ENGINEER Impression: 1.No acute intracranial abnormality.
--- NOTE | ~2025-07-07 | XR_ITS ---
EXAM/PROCEDURE: XR abdomen/kub 1V HISTORY: ADYNAMIC ILEUS. COMPARISON: July 16 TECHNIQUE: KUB FINDINGS: Gas dilated large bowel again noted not significantly changed. No large amount of free air or grossly distended small bowel. IMPRESSION: Unchanged exam compared to yesterday. Reviewed, dictated and finalized at location A. ERIZING RANGE FEEDER
--- NOTE | ~2025-07-07 | XR_ITS ---
EXAMINATION: XR chest 1V portable COMPARISON: No comparisons available. HISTORY: Resp Failure FINDINGS: Moderate pulmonary venous congestion. Scattered small infiltrates. No pneumothorax. Mild cardiomegaly. Mediastinal and hilar contours are within normal limits. Poststernotomy. Miscellaneous: Left PICC line terminates in the SVC. Impression: CHF. Superimposed pneumonia is suspected. The findings appear slightly progressed compared to the previous study. Reviewed, dictated and finalized at location P. TRAFFIC CONTROL SPECIALIST Impression: CHF. Superimposed pneumonia is suspected. The findings appear slightly progress ed compared to the previous study.
[2025-07-07] MEDS: METOPROLOL TARTRATE 25 MG TABLET PO (04:11)
--- OUTSIDE RECORDS SUMMARY | 2025-07-07 04:15 | XMS_ITS | Encounter Summary ---
Author Organization [facility] Health Address [address] [facility] [place] [place] [address] Care Team Providers Care Latex Thread Machine Operator Name Role Phone Filippo Carpenter MD Unavailable [phone] Encounter Details Date Type Department Care Team (Late st Contact Info) Description 01/27/2019 Lab Requisition [facility] [address] [facility], [place] [address] Bettina Espino DO [address] [facility] [address] [place] [address] Social History Tobacco Use Types Packs/Day Years Used Date Smoking Tobacco: Never Alcohol Use Standard Drinks/Week Comments No 0 (1 standard drink = 0.6 oz pur e alcohol) Comments No Sex and Gender Information Value Date Recorded Sex Assigned at Not on file 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 Jar 0. 12:24 PM CDT DERMATOPATHOLOGY LABORATORY [...] characteristic determined by the Dermatopathology Laboratory at [facility], directed by Dr. Krys Villagran. These tests need not be, and therefore are not, approved by the [place] Food and Drug Administration. The tests are used for clinical purposes. Billing Codes Specimen Charges Stain Charges 47047 1 12:24 PM CDT DERMATOPATHOLOGY LABORATORY Embedded Images 12:24 PM CDT DERMATOPATHOLOGY LABORATORY Pathology/Cytolog y TISSUE SPECIMEN FROM SKIN / Unknown 01/26/2019 01/27/2019 10:42 AM CDT Bettina Espino DO LAB - PATHOLOGY/CYTOLOGY ORDERABLES Final Result DERMATOPATHOLOGY LABORATORY [facility] - Department of Dermatology [address] [place] [address], 5th Floor Lab B [address] [phone] documented in this encounter Visit Diagnoses Not on filedocumented in this encounter Care Teams Latex Thread Machine Operator Relationship Specialty Start Date End Date Filippo Carpenter MD Physician Rheumatology 08/10/11 documented as of this encounter
--- OUTSIDE RECORDS SUMMARY | 2025-07-07 04:15 | XMS_ITS | Patient Health Record ---
Author Organization [facility] Address [address] [place] [id number] Care Team Providers Care E Learning Specialist Name Role Phone DR. FRANKY HATCH Primary Care Provider [phone] Allergies Allergen (clinical drug ingredient) Drug/Non Drug Allergy documented on EMR Reaction Allergy Type Onset Date Status amoxicillin / clavulanate Augmentin Unknown Drug Allergy Active amoxicillin Amoxicillin Unknown Drug Allergy Act jayda ciprofloxacin Ciprofloxacin Unknown Drug Allergy Active clavulanic acid Clavulanic Acid Unknown Drug Allergy Active codeine Codeine Unknown Drug Allergy Active levofloxacin levoFLOXacin Unknown Drug Allergy A ctive lisinopril Lisinopril Unknown Drug Allergy Activ e tramadol traMADol Unknown Drug Allergy Active Reason For Referral No Information Medications Medication SIG (Take, Route, Frequency, Duration) Notes Start Date End Date Status Pramipexole Dihydrochloride 0.5 MG Tablet 1 tablet Orally Once a day Active Insulin Lispro 100 UNIT/ML Solution Pen-injector 5 units Subcutaneous 3 times a day Active predniSONE 10 MG Tablet 1 tablet with fo od or milk Orally Once a day Active Furosemide 40 MG Tablet 1 tablet Orally Once a day Active Pravastatin Sodium 10 MG Tablet 1 tablet Orally Once a day Active Losartan Potassium 25 MG Tablet 1 tablet Orally Once a day Active Sotalol HCl 80 MG Tablet 1 tablet Orally twice a day Active Lantus 100 UNIT/ML Solution 10 units Sub cutaneous daily Active Repatha SureClick 140 MG/ML Solution Auto-injector as directed Subcutaneous every 2 weeks Active metFORMIN HCl 500 MG Tablet 2 tablets Or ally Once a day Active Xarelto 20 MG Tablet 1 tablet with food Orally Once a day 07/11/2025 Active Magnesium Oxide 250 MG Tablet 1 tablet with food Orally Once a day Active Vitamin D3 25 MCG (1000 UT) Tablet 2 tablets Orally Once a day Active amLODIPine Besylate 10 MG Tablet 1 tablet Orally Once a day Active Metoprolol Tartrate 25 MG Tablet 1 tablet with food Orally Twice a day Active Methocarbamol 500 MG Tablet 1 tablet Orally every 8 hours As needed Active Biotin 5 MG Tablet 1 tablet Orally Once a day Active Potassium Chloride ER 20 MEQ Tablet Extended Release 1 tablet with food Orally Once a day Active Arformoterol Tartrate 15 MCG/2ML Nebulization Solution 2 mL Inhalation daily Active Pantoprazole Sodium 40 MG Tablet Delayed Release 1 tablet 1/2 to 1 hour before morning meal Orally Once a day Active Diphenoxylate-Atropine 2.5-0.025 MG Tablet 1 tablet as needed Orally Four times a day Active Social History Tobacco Use: Social History Observation Description Date Details (start date - stop date) Never Smoker NA - NA Social History Drug/Alcohol: Social Info Question Answer Notes Drugs Have you used drugs other than those for medical reasons in the past 12 months? No AUDIT-C (Standard) Did you have a drink containing alcohol in the past year? 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 Problem Hyperlipidemia (07215115) Hyperlipidemia, unspecified (E78.5) Active confirmed Problem Essential hypertension (66485235) Essential (primary) hypertension (I10) Active confirmed Problem Angina co-occurrent and due to arteriosclerosis of coronary artery bypass graft (93195055853847334) 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) Active confirmed Problem Paroxysmal atrial fibrillation (084786253) Paroxysmal atrial fibrillation (I48.0) Active confirmed Problem Chronic obstructive pulmonary disease (56993488) Chronic obstructive pulmonary disease, unspecified (J44.9) Active confirmed Problem Chronic respiratory failure (83132485) Chronic respiratory failure with hypoxia (J96.11) Active confirmed Problem Fatty liver (294070857) Fatty (change of) liver, not elsewhere classified (K76.0) Active confirmed Problem Pressure injury stage I (disorder) (0072383973) Pressure ulcer of unspecified site, stage 1 (L89.91) Active confirmed Problem Rheumatoid arthritis (73739405) Rheumatoid arthritis, unspecified (M06.9) Active confirmed Problem Cervical spondylosis without myelopathy (501639649) Other spondylosis, cervical region (M47.892) Active confirmed Problem Pulmonary hypertension (24703521) Pulmonary hypertension, unspecified (I27.20) Active confirmed Problem Restless legs syndrome (38394492) Restless leg syndrome (G25.81) Active confirmed Encounters Encounter Location Date Provider Diagnosis [facility] [address] [address] 07/05/2025 FRANKY HATCH [facility] [address] [address] 07/05/2025 FRANKY HATCH [facility] [address] [address] 07/05/2025 FRANKY HATCH Plan Of Treatment No Information Insurance Providers Payer Name Payer Address Payer Phone Subscriber Number Group Number Insured Name Patient Relationship to Insured Coverage Start Date Coverage End Date [facility] [address] [place] [id number] Laura Clifford Self - patient is the insured Medical (General) History Medical History History ICD Code Pneumonia, unspecified organism J18.9 Pressure ulcer of unspecified site, stag e 1 L89.91 Rheumatoid arthritis, unspecified M06.9 Other spondylosis, cervical region M47.8 92 Urinary tract infection, site not specif ied N39.0 Unspecified fall, initial encounter W19. XXXA Pulmonary hypertension, unspecified I27. 20 Chronic obstructive pulmonary disease, u nspecified J44.9 Chronic respiratory failure with hypoxia J96.11 Fatty (change of) liver, not elsewhere c lassified K76.0 Type 2 diabetes mellitus with diabetic n ephropathy E11.21 Hyperlipidemia, unspecified E78.5 Hypokalemia E87.6 Restless leg syndrome G25.81 Essential (primary) hypertension I10 Atherosclerosis of autologou s vein coronary artery bypass graft(s) with unspecified angina pectoris I25.719 Paroxysmal atrial fibrillation I48.0 Surgical History Surgery Date(Month/Year) LUMBAR DISCECTOMY BANDAR CARPAL TUNNEL RELEASE ACHILLES TENDON REPAIR TOTAL KNEE ARTHROPLASTY
--- OUTSIDE RECORDS SUMMARY | 2025-07-07 04:15 | XMS_ITS | Encounter Summary ---
Author Organization [facility] Health Address [address] [facility] [place] [address] Care Team Providers Care Director Drug Name Role Phone Filippo Carpenter MD Unavailable [phone] Encounter Details Date Type Department Care Team (Late st Contact Info) Description 07/19/2020 Lab Requisition [facility] [address] [facility], [place] [address] Zora Gilmore MD [address] [facility] [address] [place] [address] Social History Tobacco Use Types Packs/Day Years Used Date Smoking Tobacco: Never Alcohol Use Standard Drinks/Week Comments No 0 (1 standard drink = 0.6 oz pur e alcohol) Comments No Sex and Gender Information Value Date Recorded Sex Assigned at Not on file Legal Sex Female 6:12 AM RANCH HELPER Gender Identity Not on file Sexual Orientation Not on file documented as of this encounter Plan of Treatment Not on file documented as of this encounter Procedures Procedure Name Priority Date/Time Associated Diagnosis Comments DERMATOPATHOLOGY Routine 07/18/2020 12:0 0 AM RANCH HELPER documented in this encounter Results * DERMATOPATHOLOGY (07/18/2020 12:00 AM RANCH HELPER) Case Report Dermatopathology Report Case: [id number] Authorizing Provider: Zora Gilmore MD Collected: 07/18/2020 12:00 AM Ordering Location: [facility] Lab Received: 07/19/2020 05:55 AM Pathologist: Miranda Brennan MD Specimen: Skin, nose tip 0 7:17 PM [facility] DERMATOPATHOLOGY LABORATORY Final Diagnosis Specimen A. SKIN, nose tip: ACTINIC KERATOSIS (L57.0) (see microscopic description) 0 7:17 PM [facility] DERMATOPATHOLOGY LABORATORY at [address] [facility] Clinical History R/O BCC,AK 0 7:17 PM [facility] DERMATOPATHOLOGY LABORATORY Gross Description Specimen A: Received is one formalin filled container labeled with the patient's name and designated nose tip. The specimen consists of a shave biopsy measuring 3x3x1 mm. Jar 0. 0 7:17 PM [facility] DERMATOPATHOLOGY LABORATORY Microscopic Description Specimen A. SKIN, nose tip: There is focal parakeratosis. The lower half of the epidermis shows disorderly maturation of keratinocytes with nuclear pleomorphism. Additional deeper sections were obtained and reviewed. 0 7:17 PM [facility] DERMATOPATHOLOGY LABORATORY Disclaimer An external and internal positive and negative controls are appropriate for the histochemical, immunohistochemical and immunofluorescence stain(s) in this case (if any), except where stated explicitly. The performance characteristics of the stain(s) cited in this report were developed and its performance characteristic determined by the Dermatopathology Laboratory at [facility], directed by Dr. Krys Villagran. These tests need not be, and therefore are not, approved by the [place] Food and Drug Administration. The tests are used for clinical purposes. Billing Codes Specimen Charges Stain Charges 53394 1 0 7:17 PM RANCH HELPER DERMATOPATHOLOGY LABORATORY Embedded Images 0 7:17 PM [facility] DERMATOPATHOLOGY LABORATORY Pathology/Cytolog y TISSUE SPECIMEN FROM SKIN / Unknown 07/18/2020 07/19/2020 5:55 AM [facility] us Zora Gilmore MD LAB - PATHOLOGY/CYTOLOGY ORD ERABLES Final Result DERMATOPATHOLOGY LABORATORY [facility] - Department of Dermatology [address], [address] [phone] documented in this encounter Visit Diagnoses Not on filedocumented in this encounter Care Teams Director Drug Relationship Specialty Start Date End Date Filippo Carpenter MD Physician Rheumatology 08/10/11 documented as of this encounter
--- OUTSIDE RECORDS SUMMARY | 2025-07-07 04:15 | XMS_ITS | Encounter Summary ---
Author Organization [facility] Healthcare Address [address] [place] [address] Care Team Providers Care Chili Maker Name Role Phone Parminder Rojas MD Primary Care Provider [phone] Yannick Guevara MD Unavailable [phone] Ayde Peña MD Unavailable [phone] Greg Renae MD Unavailable [phone] Reason for Visit * Auth/Cert (Routine) Specialty Diagnoses / Procedures Referred By Contac t Referred To Contact Referral ID Status Reason Start Date Expiration Date Visits Re quested Visits Authorized [id number] 1 1 Encounter Details Date Type Department Care Team (Late st Contact Info) Description 07/04/2025 Home Care Visit [facility] [address] [address] [address] [place] [address] Ernestina Hsu, PT PT VIRTUAL NON OASIS DISCHARGE Social History Tobacco Use Types Packs/Day Years [...] neighbors? More than three times a week 06/07/2025 How often do you get togethe r with friends or relatives? More than three times a week 06/07/2025 How often do you attend chur ch or church services? Never 06/07/2025 Do you belong to any clubs o r organizations such as rastafari groups, unions, fraternal or athletic groups, or school groups? No 06/07/2025 How often do you attend meet ings of the clubs or organizations you belong to? Never 06/07/2025 Are you , , di vorced, , never , or living with a partner? 06/07/2025 Overall Financial Resource Strain (CARDIA) Answe r Date Recorded How hard is it for you to pa y for the very basics like food, housing, medical care, and heating? Not hard at all 06/07/2025 Hunger Vital Sign Answer Date Recorded Within the past 12 months, y ou worried that your food would run out before you got the money to buy more. Never true 06/07/20 25 Within the past 12 months, t he food you bought just didn't last and you didn't have money to get more. Never true 06/07/2025 PRAPARE - Transportation Answer Date Re corded In the past 12 months, has l ack of transportation kept you from medical appointments or from getting medications? No 03/2025 In the past 12 months, has l ack of transportation kept you from meetings, work, or from getting things needed for daily living? No 06/07/2025 Housing Stability Vital Sign Answer Jame e Recorded In the last 12 months, was t here a time when you were not able to pay the mortgage or rent on time? No 06/07/2025 In the past 12 months, how m any times have you moved where you were living? 0 06/07/2025 At any time in the past 12 m [facility], were you homeless or living in a halfway (including now)? No 06/07/2025 [facility] Utilities Answer Date Recorded In the past 12 months has th e electric, gas, oil, or water company threatened to shut off services in your home? No 06/07/2025 Personal Safety Answer Date Recorded Have you ever been in or are you currently in a harmful physical or emotional relationship or is someone making you feel afraid or unsafe? 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 Gender Identity Not on file Sexual Orientation Not on file documented as of this encounter Functional Status * Difference in Last Two Claudio Scores Answer Date of Assessment Author 1 07/04/2025 7:36 AM Saumya Parada RN * Question Answer Date of Assessment Author Herrera Fall Risk Score (Score >= 45 places fall precaution order) 70 07/04/2025 7:36 AM Saumya Parada RN Prior Fall Event (Autopopulated from EMR) None found 07/04/2025 7:36 AM Ra kylie Parada RN * Question Answer Date of Assessment Author BP Location Right arm 07/04/2025 8:31 AM Gill Lopez BP Method Automatic 07/04/2025 8:31 AM Gill Lopez MAP (mmHg) 75 07/04/2025 8:31 AM Gill Lopez * Fall Risk Interventions Question Answer Date of Assessment Author All High Fall Risk Interventions Applied Yes 07/04/2025 7:36 AM Jay Parada RN Additional Interventions Applied Bed/chair alarm;Bedside commode;Over-bed table on non-exit side 07/04/2025 7:36 AM Saumya Parada RN * B.M.A.T. - Bedside Mobility Assessment Tool for Nurses Question Answer Date of Assessment Author Is patient able to participate in the BMAT? Yes 07/04/2025 7:36 AM Saumya Parada RN BMAT Level Level 1 - Red 07/04/2025 7:36 AM Saumya Parada RN Level 1 Equipment Use total lift with sling and/or repositioning sheet 07/04/2025 7:36 AM Saumya Parada RN * Pressure Injury Prevention Question Answer Date of Assessment Author Pressure Ulcer Prevention Interventions Keep skin clean and dry (Sensory Perception/Moisture);Plac e on pressure redistribution surface (Sensory Perception/Activity/Mobil ity);Establish turning schedule (Sensory Perception/Activity/Mobil ity);Reposition at regular intervals while in the chair (Activity);Float Heels (Activity/Mobility);Use pillows/wedge for positioning (Activity/Mobility) 07/04/2025 7:36 AM Saumya Parada RN Protective Foam Dressing Location Coccyx 07/04/2025 7:36 AM Saumya Parada RN Special Mattress Low air loss and alternating pressure relief 07/04/2025 7:36 AM Saumya Parada RN * Integumentary Question Answer Date of Assessment Author Skin Color Pale 07/04/2025 7:36 AM Saumya Sanches RN Skin Condition/Temp Warm;Dry 07/04/2025 7:36 AM Saumya Leo RN Skin Integrity Surgical incision;Redness 07/04/2025 7:36 AM Saumya Parada RN Integumentary Additional Assessments Yes-Claudio 07/04/2025 7:36 AM Saumya Parada RN Integumentary (WDL) X 07/04/2025 7:36 AM Saumya Leo RN * Question Answer Date of Assessment Author Edema Trace 07/04/2025 7:36 AM Saumya Sanches RN * Question Answer Date of Assessment Author BP Location Right arm 07/04/2025 8:31 AM Gill Lopez BP Method Automatic 07/04/2025 8:31 AM Gill Lopez * Percent Meal Eaten (%) Answer Date of Assessment Author 100 07/04/2025 12:26 PM Saumya Parada RN * Fall Risk Interventions Question Answer Date of Assessment Author All High Fall Risk Interventions Applied Yes 07/04/2025 7:36 AM Jay Parada RN Additional Interventions Applied Bed/chair alarm;Bedside commode;Over-bed table on non-exit side 07/04/2025 7:36 AM Saumya Parada RN * Hygiene Question Answer Date of Assessment Author Hygiene Skin cleanser;Protective barrier cream 07/04/2025 4:10 AM Radha Hamilton Toileting: Assistance with Use of adaptive equipment 07/04/2025 4:10 AM Radha Hamilton Toileting: Level of assistance Dependent 07/04/2025 4:10 AM Radha Hamilton Perineal Care Adriana Care 07/04/2025 4:10 AM Radha Gleason Linens Absorbent pad changed 07/04/2025 7:00 AM LAWN AND TREE SERVICE SPRAY SUPERVISOR Radha Chung documented as of this encounter Mental Status * Question Answer Entry Date Author Orientation Oriented X4 (person, place, time, situation) 07/04/2025 10:02 AM Yenni Wilcox HAND TACKER * Question Answer Entry Date Author Level of Consciousness Alert;Awake 07/04/2025 7:36 AM Saumya Parada RN Neuro (WDL) X 07/04/2025 7:36 AM Saumya Sanches RN documented in this encounter Plan of Treatment Not on file documented as of this encounter Visit Diagnoses Not on filedocumented in this encounter Home Health Visit - Care Plan Visit Details Visit Type -PT Virtual Non-O ASIS Discharge Discipline -Physical Therapy Problems Problem Description Start Date Status Goals Interve ntions Monitor patient's vital signs every home health visit Disciplines: Skilled Disciplines, SN, PT, OT, HAND TACKER, CHRISTIAN SCIENCE HEALER Monitor patient's vital signs every home health visit. 05/12/2025 Active 1 goal linked to scheduled/documen carlos intervention 1 goal intervention scheduled/documen carlos in this visit Infection Prevention Disciplines: Skilled Disciplines Infection Prevention 05/12/2025 Active 1 goal linked to scheduled/documen carlos intervention 1 goal intervention scheduled/documen carlos in this visit Fall Precautions/Safe ty Concerns Disciplines: Skilled Disciplines Fall precautions and general safety 05/12/2025 Active 1 goal linked to scheduled/documen carlos intervention 1 goal intervention scheduled/documen carlos in this visit Pain Disciplines: Core Disciplines Alteration in comfort 05/12/2025 Active 1 goal linked to scheduled/documen carlos intervention 1 goal intervention scheduled/documen carlos in this visit Goals Goal Associated Problem Outcome Goal Met? Visit Notes Measure vital signs during every home health visit during episode of care Description: Home care management associate to measure vital signs during every home health visit during episode of care. Monitor patient's vital signs every home health visit No Verbalize signs of infection Description: Patient/caregiver will demonstrate knowledge of infection prevention strategies by verbalizing signs and symptoms of infection. Infection Prevention No Demonstrate fall and safety precautions Description: Patient/caregiver maintains safe home environment as evidenced by remaining free from falls, injury due to falls, demonstrating safety precautions, and identifying strategies to reduce falls by 07/10/25. Fall Precautions/Safety Concerns No Report that pain has been reduced or controlled Description: Patient/caregiver/family will verbalize satisfaction with the patients level of pain and symptom control. Pain No Interventions Intervention Associated Problem/Goal Status Variance Visit Notes Monitor Vital Signs Description: Monitor blood pressure, pulse, oxygen saturation, respirations Problem:Monitor patient's vital signs every home health visit Goal:Measure vital signs during every home health visit during episode of care Scheduled Educate Patient on Infection Prevention Description: Instruct patient on signs and symptoms of infection IE: fever, odor, change in color, increased amount of drainage, purulent drainage, warmth. Problem:Infection Prevention Goal:Verbalize signs of infection Scheduled High Fall Risk Precautions Description: Instruct patient/caregiver to use proper lighting in all areas, stand/sit up slowly, use appropriate footwear when walking, use proper assistive devices, and to keep pathways clear of cords and clutter to prevent falls. Remove/secure throw rugs. Educate patient on medications and disease processes that increase fall risk, using corrective lenses as prescribed, placing hard to reach items within reach, what to do in the event of a fall and to report any falls to the home health agency. Problem:Fall Precautions/Safety Concerns Goal:Demonstrate fall and safety precautions Scheduled Instruct on pain management techniques Description: Instruct in pharmacologic and nonpharmacologic pain management techniques. Problem:Pain Goal:Report that pain has been reduced or controlled Scheduled documented in this encounter Care Teams Chili Maker Relationship Specialty Start Date End Date Parminder Rojas MD PCP - General 01/19/14 Yannick Guevara MD [phone] [place] [address] Surgeon Colon and Rectal Surgery 02/07/21 Ayde Peña MD [address] [facility] [address] [place] [address] Referring Physician Family Medicine 02/07/21 [place] [address] [facility] [address] [place] [address] Surgeon Neurosurgery 07/01/25 documented as of this encounter
--- OUTSIDE RECORDS SUMMARY | 2025-07-07 04:15 | XMS_ITS | Clinical Summary ---
Author Organization [facility] Address [address] [place] [address] Care Team Providers Care Insulation Installer Name Role Phone Max Carpenter MD Unavailable [phone] Source Comments [facility],non-owned Affiliates and Associated Physician Practices is amultiple site organization consisting of ambulatory clinics and hospital sitesin [place], [place], [place] and [place]. This disclosure is being madepursuant to the Care Everywhere program and may not contain all information available regarding this patient. 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 Gender Identity Not on file Sexual Orientation Not on file Last Filed Vital Signs Vital Sign Reading Time Taken Comments Blood Pressure 134/68 07/22/2011 4:17 PM CONTINUOUS TOWEL ROLLER Pulse 81 07/22/2011 4:17 PM CONTINUOUS TOWEL ROLLER Temperature 36.9 C (98.5 F) 07/22/2011 4:17 PM CONTINUOUS TOWEL ROLLER Respiratory Rate 18 07/22/2011 4:17 PM CONTINUOUS TOWEL ROLLER Oxygen Saturation 96% 07/22/2011 4:17 PM CONTINUOUS TOWEL ROLLER Inhaled Oxygen Concentration - - Weight 104.3 kg (230 lb) 07/22/2011 6:45 AM CONTINUOUS TOWEL ROLLER Height 160 cm (5' 3) 07/22/2011 6:45 AM CONTINUOUS TOWEL ROLLER Body Mass Index 40.74 07/22/2011 6:45 AM CONTINUOUS TOWEL ROLLER Plan of Treatment Health Maintenance Due Date [...] age to complete this topic Insurance [facility] A[facility]IC[facility] ADV SELF PAY NO INSURANCE Member Subscriber Plan / Payer (Ef fective for All Dates) Name:Laura Valenzuela Member ID:Not on file Relation to Subscriber:Not on file Name:LAURA VALENZUELA Subscriber ID:Not on file Address: [address] [place] [address] Payer ID:Not on file Group ID:Not on file Type:Self Pay Address: [place], [place] Advance Directives * FULL RESUSCITATION (Latest Code Status on File) Date Activated Date Inactivated Comments 07/22/2011 12:27 PM 07/23/2011 6:58 AM Care Teams Insulation Installer Relationship Specialty Start Date End Date Max Carpenter MD Physician Rheumatology 08/10/11
--- OUTSIDE RECORDS SUMMARY | 2025-07-07 04:16 | XMS_ITS ---
Author Name Machelle Mendoza Address [address] [facility] [place] [address] Phone [phone] Organization [facility] Care Team Providers Care Mattress Weaver Name Role Phone Fanta Ernestina Unavailable [phone] Primarily Home Tier 1 RN (ACOSTA), Claudine mariaaildequan Unavailable Filippo Carpenter Unavailable [phone] LEANDRO BARTHOLOMEW Unavailable [phone] TERRENCE HOWELL Unavailable [phone] Reason for Referral Not Available Allergies, adverse [...] least 30 minutes total time on encounter [facility] 01/25/2025 Chronic obstructive pulmonary disease, unspecifiedChronic atrial fibrillation, unspecifiedHyperlipidemia, unspecifiedLocalized edemaRestless legs syndromeDependence on supplemental oxygenType 2 diabetes mellitus without complicationsRheumatoid arthritis, unspecifiedGastro-esophageal reflux disease without esophagitis Home visit for evaluation and management of new patient requiring medically appropriate examination and low level of medical decision making. If using time, at least 30 minutes total time on encounter [facility] 01/25/2025 Rheumatoid arthritis , unspecified Home visit for evaluation and management of new patient requiring medically appropriate examination and low level of medical decision making. If using time, at least 30 minutes total time on encounter [facility] 01/25/2025 Rheumatoid arthritis , unspecified Home visit for evaluation and management of established patient requiring medically appropriate examination and moderate level of medical decision making. If using time, at least 40 minutes total time [facility] 05/19/2025 Chronic obstructive pulmonary disease, unspecifiedChronic atrial fibrillation, unspecifiedHyperlipidemia, unspecifiedLocalized edemaRestless legs syndromeDependence on supplemental oxygenType 2 diabetes mellitus without complicationsRheumatoid arthritis, unspecifiedGastro-esophageal reflux disease without esophagitisBody mass index (bmi) 31.0-31.9, adult Home visit for evaluation and management of established patient requiring medically appropriate examination and moderate level of medical decision making. If using time, at least 40 minutes total time [facility] 05/19/2025 Rheumatoid arthritis , unspecified Home visit for evaluation and management of established patient requiring medically appropriate examination and moderate level of medical decision making. If using time, at least 40 minutes total time [facility] 05/19/2025 Chronic atrial fibri llation, unspecified Home visit for evaluation and management of established patient requiring medically appropriate examination and moderate level of medical decision making. If using time, at least 40 minutes total time [facility] 05/19/2025 Rheumatoid arthritis , unspecified Vital Signs [...] tive Time Current Smoking Status Never smoker 7 Sex Female History of Procedures Procedures Service Procedure code Service date Servicing provider Phone# Home visit for evaluation and management of new patient requiring medically appropriate examination and low level of medical decision making. If using time, at least 30 minutes total time on encounter 20274 2025-01-25 No Data Available No Data Availa ble Advance care planning discussion documented in medical record [id number] 2025-01-25 No Data Available No Data Avai lable Patient screened for fall risk; no falls in the last year or 1 fall with no injury in the last year 1100F 2025-01-25 No Data Available No Data Avail able Home visit for evaluation and management of established patient requiring medically appropriate examination and moderate level of medical decision making. If using time, at least 40 minutes total time 75038 2025-05-19 No Data Available No Data Destini ilable Patient screened for fall risk; 2 or more falls in the last year or fall with injury in the last year 1101F 2025-05-19 No Data Available No Data Availa ble Advance care planning discussion documented in medical record [id number] 2025-05-19 No Data Available No Data Avai lable Functional status assessed 1170F 2025-05-19 No Data Available No Data Availa ble Functional Status Functional Category Effective Dates does [...] bedtimemanaged by PCPsee #1chronic; unsure of last L6Cawjgixkx metformin 500 mg once daily and Mounjaro weekly injectionmonitor carbohydrate intakechroniccontinue leflunomide 20 mg once dailymanaged and followed by rheumatologychronic; stablecontinue pantoprazole 40 mg once dailyavoid any food triggers 2025-05-19 09:15:00 Enrolled in [facility] Receiving PT/OT twice weekly into July. [...] with leflunomide.Well controlled. Managed with pantoprazoleManaged with Mejbluf3ns hand smoke. Managed with Arformoterol inhalant and [...] 2025-05-19 Primarily Home progr am contacted by [facility] CM after a hospital discharge. 2025-05-19 Currently getting [facility]. RN initial visit for med reconciliation on [...] weak. A week later she went to [facility] after a fall. She was stuck between the car and the wall. Had to call EMS. She was admitted to [facility] for 2 weeks. The plan was to go to [facility] for rehab. Then discussed having surgery on neck, so she was transferred to [facility]. She was admitted for 2 days and [...]
--- OUTSIDE RECORDS SUMMARY | 2025-07-07 04:16 | XMS_ITS | Clinical Summary ---
Author Organization [facility] Address [address], [facility] [address] [place] [address] Phone Care Team Providers Care Tooling Mechanic Name Role Phone Parminder Rojas MD Primary Care Provider [phone] Allergies Active Allergy Reactions Criticality Noted Date [...] UNIT Tablet Take by mouth. Activ e Charlotte-3 Fatty Acids (FISH OIL PO) Take by [...] Virus (RSV) Immunization (Adult) (1 - Risk 50-74 years 1-dose series) 02/12/2002 Zoster Immunization (1 of 2) 05/18/2013 03/23/2013 [...] Maintenance Insurance MEDICARE C AETNA Care Teams Tooling Mechanic Relationship Specialty Start Date End Date Parminder Rojas MD [address] [address] PCP - General Family Medicine 04/08/18
--- OUTSIDE RECORDS SUMMARY | 2025-07-07 04:16 | XMS_ITS | Clinical Summary ---
Author Organization [facility] Address [address] [place] [address] Care Team Providers Care Exhibits Manager Name Role Phone Parminder Rojas MD Primary Care Provider [phone] Allergies Active Allergy Reactions Criticality Noted Date [...] - 1-dose 75+ series) 02/12/[address] [place] [address] AETNA PPO MCR Care Teams Exhibits Manager Relationship Specialty Start Date End Date Parminder Rojas MD [address] [place] [id number] PCP - General Family Practice 02/04/22
--- OUTSIDE RECORDS SUMMARY | 2025-07-07 04:16 | XMS_ITS | Patient Health Record ---
Author Organization [facility] Address [address] [place] [address] Care Team Providers Care Safety Intern Name Role Phone Sammie RONDON, Parminder Primary Care Provider Unavail able Filippo Jenkins Unavailable [phone] Allergies Allergen (clinical drug ingredient) Drug/Non Drug Allergy documented on EMR Reaction Allergy Type Onset Date Status Amoxicillin ER Unknown Drug Allergy Ac tive codeine Codeine Unknown Drug Allergy 11/05/2004 Active Results Component Value Reference Range Notes eGFR Reviewed date:03/04/2025 09:01:05 AM Interpretation: Performing Lab:[facility] , [address] [facility] [address] Notes/Report: eGFR >90 >=60 mL/min/1.73 m2 Interpretive [...] Automated Reviewed date:03/04/2025 09:00:49 AM Interpretation: Performing Lab:[facility] , [address] [facility]. [place] [address] Notes/Report: Neut Abs 4.90 1.50-6.50 K/cumm ImmGran Abs 0.05 0.00-0.10 K/cumm Lymphocyte Abs 1.39 0.80-3.30 K/cumm [place] Abs 1.04 0.20-0.80 K/cumm Eos Abs 0.45 [...] Interpretive Data was last revised on 2017. [place] Pct 13.1 Interpretive Data Percent cell count [...] eGFR Reviewed date:12/01/2024 12:56:10 PM Interpretation: Performing Lab:[facility] , [address] [facility]. [place] [address] Notes/Report: eGFR 86 >=60 mL/min/1.73 m2 Approach to GFR Estimation: Recommendations of the NKF-ASK Task Force on Reassessing the Inclusion of Race in Diagnosing Kidney Disease, JASN 2021). The CKD-EPI equation should not be used [...] by the National Kidney Foundation (A Unifying eGFR Reviewed date:09/03/2024 03:29:31 PM Interpretation: Performing Lab:[facility] , [address] [place] [address]. [place] [address] Notes/Report: eGFR >90 >=60 mL/min/1.73 m2 Interpretive [...] of Race in Diagnosing Kidney Disease, JASN 2021). The CKD-EPI equation should not be used for patients with unstable renal function and has not been validated in children and those over 70. Current interpretive data was last reviewed 2021. Differential Automated Reviewed date:09/03/2024 03:29:31 PM Interpretation: Performing Lab:[facility] , [address] [place] [address]. [place] [address] Notes/Report: Neut Abs 4.5 1.5-6.5 K/cumm ImmGran Abs 0.0 0.0-0.1 K/cumm Lymphocyte Abs 1.3 0.8-3.3 K/cumm [place] Abs 0.8 0.2-0.8 K/cumm Eos Abs 0.1 [...] Interpretive Data was last revised on 2017. [place] Pct 12.1 Interpretive Data Percent cell count [...] Panel Reviewed date:09/03/2024 03:29:31 PM Interpretation: Performing Lab:[facility] , [facility]. [facility] [address] Notes/Report: Total Bilirubin 0.4 0.1-1.2 mg/dL Bilirubin, Direct 0.2 0.1-0.3 mg/dL Plasma Total Protein 6.2 6.5-8.5 g/dL Albumin 4.1 3.5-5.0 g/dL Alkaline Phosphatase 50 40-130 Units/L ALT 16 7-45 Units/L AST 18 10-45 Units/L Creatinine Reviewed date:09/03/2024 03:29:31 PM Interpretation: Performing Lab:[facility] , [address] [place] [address]. [facility] [address] Notes/Report: Creatinine 0.68 0.60-1.10 mg/dL CBC w auto diff Reviewed date:09/03/2024 03:29:31 PM Interpretation: Performing Lab:[facility] , [address] [place] [address]. [facility] [address] Notes/Report: WBC 6.8 3.8-9.9 K/cumm Hgb 13.9 11.9-15.5 g/dL Hct 43.6 35.6-45.5 % Platelet Ct 259 150-400 K/cumm MPV 12.1 9.1-12.3 fL RBC 4.61 3.90-5.20 M/cumm MCV 94.6 81.3-96.4 fL MCH 30.2 27.1-33.3 pg MCHC 31.9 32.3-35.7 g/dL RDW CV 16.0 11.1-14.9 % RDW SD 54.6 35.7-48.1 fL NRBC Abs Auto 0.00 0.00-0.01 K/cumm Differential Automated Reviewed date:12/01/2024 12:56:18 PM Interpretation: Performing Lab:[facility] , [address] [place] [address]. [facility] [address] Notes/Report: Neut Abs 4.61 1.50-6.50 K/cumm ImmGran Abs 0.05 0.00-0.10 K/cumm Lymphocyte Abs 1.45 0.80-3.30 K/cumm [place] Abs 0.88 0.20-0.80 K/cumm Eos Abs 0.26 [...] Interpretive Data was last revised on 2017. [place] Pct 12.0 Interpretive Data Percent cell count [...] yet revi ewed by provider) Interpretation: Performing Lab:[facility] , [address] [place] [address]. [facility] [address] Notes/Report: Total Bilirubin 0.6 0.1-1.2 mg/dL Bilirubin, Direct 0.3 0.1-0.3 mg/dL Plasma Total Protein 6.6 6.5-8.5 g/dL Albumin 3.8 3.5-5.0 g/dL Alkaline Phosphatase 390 40-130 Units/L ALT 78 7-45 Units/L AST 74 10-45 Units/L Hep Func Panel Reviewed date:03/07/2025 04:43:01 PM Interpretation: Performing Lab:[facility] , [address] [facility]. [place] [address] Notes/Report: Total Bilirubin 0.7 0.1-1.2 mg/dL Bilirubin, Direct 0.4 0.1-0.3 mg/dL Plasma Total Protein 6.5 6.5-8.5 g/dL Albumin 3.5 3.5-5.0 g/dL Alkaline Phosphatase 357 40-130 Units/L ALT 88 7-45 Units/L AST 78 10-45 Units/L Creatinine Reviewed date:03/04/2025 08:59:24 AM Interpretation: Performing Lab:[facility] , [address] [place] [address] Notes/Report: Creatinine 0.69 0.60-1.10 mg/dL CBC w auto diff Reviewed date:03/06/2025 08:07:52 AM Interpretation: Performing Lab:[facility] , [address] [place] [address] Notes/Report: WBC 7.93 3.80-9.90 K/cumm Hgb 12.3 11.9-15.5 g/dL Hct 39.5 35.6-45.5 % Platelet Ct 268 150-400 K/cumm MPV 12.3 9.1-12.3 fL RBC 4.28 3.90-5.20 M/cumm MCV 92.3 81.3-96.4 fL MCH 28.7 27.1-33.3 pg MCHC 31.1 32.3-35.7 g/dL RDW CV 16.5 11.1-14.9 % RDW SD 53.5 35.7-48.1 fL NRBC Abs Auto 0.00 0.00-0.01 K/cumm Hep Func Panel Reviewed date:12/01/2024 12:55:55 PM Interpretation: Performing Lab:[facility] , [address] [place] [address] Notes/Report: Total Bilirubin 0.4 0.1-1.2 mg/dL Bilirubin, Direct 0.2 0.1-0.3 mg/dL Plasma Total Protein 6.4 6.5-8.5 g/dL Albumin 3.6 3.5-5.0 g/dL Alkaline Phosphatase 53 40-130 Units/L ALT 14 7-45 Units/L AST 17 10-45 Units/L Creatinine Reviewed date:12/01/2024 12:56:00 PM Interpretation: Performing Lab:[facility] , [address] [place] [address] Notes/Report: Creatinine 0.74 0.60-1.10 mg/dL CBC w auto diff Reviewed date:12/01/2024 12:56:05 PM Interpretation: Performing Lab:[facility] , [address] [place] [address] Notes/Report: WBC 7.33 3.80-9.90 K/cumm Hgb 13.0 [...] Duration: 28 Days Active Vitamin D (Ergocalciferol) 10229 UNIT Oral Active Sotalol HCl 80 MG [...] or upper arm rotating injection sites Subcutaneous [id number] Not-Taking Pravastatin Sodium 10 MG take 1 [...] W/U Status Risk Notes Problem Rheumatoid arthritis (82452697) Other specified rheumatoid arthritis, 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 Problem Long-term current use of drug therapy (972033656) Other skilled nursing (current) drug therapy (Z79.899) Active confirmed Problem Rheumatoid arthritis (75059116) Rheumatoid arthritis, unspecified (M06.9) 5 Active confirmed Vital Signs Heart Rate 114 /min 03/14/2025 Temperature 98.1 degrees Fahrenheit 03/14/2025 Blood pressure diastolic 80 mm Hg 03/14/2025 Oximetry 83 % 03/14/2025 Height-cm 160.02 cm 03/14/2025 Weight-kg 73.94 kg 03/14/2025 Height 63 in 03/14/2025 Blood pressure systolic 160 mm Hg 03/14/2025 Weight 163 lbs 03/14/2025 BMI 28.87 kg/m2 03/14/2025 Encounters Encounter Location Date Provider Diagnosis [facility] [address] [place] [address] 09/02/2024 Filippo Jenkins Other skilled nursing (current) drug therapy Z79.899 and Other specified rheumatoid arthritis, 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 [facility] [address] [place] [address] 12/01/2024 Filippo Jenkins Other skilled nursing (current) drug therapy Z79.899 and Other specified rheumatoid arthritis, 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 [facility] [address] [place] [address] 03/02/2025 Filippo Jenkins Other skilled nursing (current) drug therapy Z79.899 and Other specified rheumatoid arthritis, 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 [facility] [address] [place] [address] 03/14/2025 Filippo Jenkins Other cue worker (current) drug therapy Z79.899 ; Other specified rheumatoid arthritis, 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 ; Elevated LFTs R79.89 and Elevated alkaline phosphatase level R74.8 [facility] [address] [facility] [address] [place] [address] 03/07/2025 Filippo Jenkins Assessments Encounter Date Diagnosis (ICD Code) Assessment Notes Treatment Notes Treatment Clinical Notes Section Notes 09/02/2024 Other specified rheumatoid arthritis, multiple sites (ICD-10 - M06.89) 09/02/2024 Other cue worker (current) drug therapy (ICD-10 - Z79.899) 12/01/2024 Other specified rheumatoid arthritis, multiple sites (ICD-10 - M06.89) 12/01/2024 Other cue worker (current) drug therapy (ICD-10 - Z79.899) 03/02/2025 Other cue worker (current) drug therapy (ICD-10 - Z79.899) 03/14/2025 Other specified rheumatoid arthritis, multiple sites (ICD-10 - M06.89) 03/14/2025 Other cue worker (current) drug therapy (ICD-10 - Z79.899) 03/14/2025 [...] 08/21/2023 Creatinine 11/20/2023 Hep Func Panel 03/14/2025 Insurance Providers Payer Name Payer Address Payer Phone Subscriber Number Group Number Insured Name Patient Relationship to Insured Coverage Start Date Coverage End Date [employer] [address] [place] [address] [id number] Laura Clifford Self - patient is the insured [employer] Access [address] [place] [id number] Laura Clifford Self - patient is the insured 1 DO NOT USE [id number] Laura Clifford Self - patient is the insured 8 [employer] Ppo [address] [address] [place] [address] [id number] Laura Clifford Self - patient is the insured 2 [employer] [address] [address] [place] [address] [id number] Laura Clifford Self - patient is the insured [employer] Medicare Ppo [address] [place] [address] [id number] Laura Clifford Self - patient is the insured Medical (General) History Surgical History Surgery Date(Month/Year) Hospitalization History Reason Date(Month/Year)
--- OUTSIDE RECORDS SUMMARY | 2025-07-07 04:18 | XMS_ITS | Clinical Summary ---
Author Organization [facility] Address [address] [place] [address] Care Team Providers Care Fisher Dip Net Name Role Phone Parminder Rojas MD Primary Care Provider [phone] Yannick Guevara MD Unavailable [phone] Ayde Peña MD Unavailable [phone] Sadia Renae MD Unavailable Allergies Active Allergy Reactions Criticality Noted Date Comments Amoxicillin Unknown Low 07/20/2024 Ciprofloxacin Unknown Low 07/20/2024 Clopidogrel Nausea And Vomiting Low 02/04/2022 Codeine Nausea & Vomiting Low Hydrocodone Nausea And Vomiting Low 02/04/2022 Levofloxacin Unknown Low 07/20/2024 Lisinopril Unknown Low 07/20/2024 Tramadol Nausea & Vomiting Low 07/20/2024 Medications metoprolol tartrate (LOPRESSOR) 25 mg immediate release tablet Take 1 tablet (25 mg total) by mouth 2 (two) times a day Active cholecalciferol (Vitamin D3) 2000 unit tablet Take 1 tablet (2,000 Units total) by mouth daily Active diphenoxylate-a tropine (LOMOTIL) 2.5-0.025 mg per tabletIndicatio ns:diarrhea Take 1 tablet by mouth 4 (four) times a day as needed for diarrhea 1 Active arformoteroL (BROVANA) 15 mcg/2 mL nebulizer solution Take 2 mL (15 mcg total) by nebulization once daily USE 1 VIAL IN NEBULIZER DAILY 4 Active pravastatin (PRAVACHOL) 10 mg tablet Take 1 tablet (10 mg total) by mouth daily Active Xarelto 20 mg tabletIndicatio ns:VTE Prophylaxis Take 1 tablet (20 mg total) by mouth daily with dinner 4 Active Mounjaro 2.5 mg/0.5 mL pen injectorIndicat ions:type 2 diabetes mellitus Inject 0.5 mL (2.5 mg total) under the skin once a week Fridays 4 Active evolocumab (Repatha SureClick) 140 mg/mL pen injector Inject 1 mL (140 mg total) under the skin every 14 (fourteen) days Every other Thursday Active metFORMIN XR (GLUCOPHAGE XR) 500 mg 24 hr tablet Take 2 tablets (1,000 mg total) by mouth daily with dinner Active oxygenIndicatio ns:Dyspnea Administer 2 L/min into each nostril continuously. Indications: trouble breathing Active magnesium oxide (MAG-OX) 250 mg (150.8 mg elemental) tablet Take 1 tablet (250 mg total) by mouth daily Active biotin 5 mg capsule Take 1 capsule (1 tablet total) by mouth daily Active furosemide (LASIX) 40 mg tablet Take 1 tablet (40 mg total) by mouth daily Active leflunomide (ARAVA) 20 mg tabletIndicatio ns:Rheumatoid Arthritis Take 1 tablet (20 mg total) by mouth daily Active pantoprazole DR (PROTONIX) 40 mg EC tablet Take 1 tablet (40 mg total) by mouth daily Active potassium chloride ER 20 mEq CR tablet Take 1 tablet (20 mEq total) by mouth daily Active pramipexole (MIRAPEX) 0.5 mg tablet Take 1 tablet (0.5 mg total) by mouth daily Active sotaloL (BETAPACE) 80 mg tablet Take 1 tablet (80 mg total) by mouth 2 (two) times a day Active methocarbamoL (ROBAXIN) 500 mg tablet Take 1 tablet (500 mg total) by mouth every 8 (eight) hours as needed for muscle spasms 5 Active losartan (COZAAR) 25 mg tablet Take 1 tablet (25 mg total) by mouth daily 5 Active amLODIPine (NORVASC) 10 mg tablet Take 1 tablet (10 mg total) by mouth daily 5 07/05/20 26 Active predniSONE (DELTASONE) 10 mg tablet Take 1 tablet (10 mg) by mouth daily Active insulin lispro (HumaLOG) 100 unit/mL pen for injection Inject 5 Units under the skin 3 (three) times a day with meals 08/03/20 25 Active blood-glucose meter kit Use as directed. Active lancets misc Use as directed up to 4 times a day. 5 Active blood glucose diagnostic (glucose blood) strip Use as directed up to four times a day. Active insulin glargine (LANTUS) 100 unit/mL (3 mL) pen for injection Inject 10 Units under the skin daily 5 Active pen needle, diabetic 32 gauge x needle Use as directed twice a day Active Active Problems Problem Noted Date Diagnosed Date Postprocedural hypotension 06/28/2025 Acute on chronic respiratory failure with hypoxi a 06/23/2025 Assessment & Plan (06/23/2025 6:32 PM CDT): Patient transferred to ICU for furthering monitoring. Lasix given. Acute on chronic respiratory failure with hypoxi a 06/23/2025 Acute pulmonary edema 06/23/2025 Assessment & Plan (06/23/2025 6:32 PM CDT): Patient transferred to ICU for furthering monitoring. Lasix given. Hyperkalemia 06/22/2025 Assessment & Plan (06/22/2025 12:43 PM CDT): Replete and monitor. Mild malnutrition 06/20/2025 Sarcoidosis 06/20/2025 Assessment & Plan (07/03/2025 7:24 AM DAIRY TESTER): - On 2 L baseline. Currently on 3L - Prednisone 10 mg q day - On brovena (Arformoterol) Assessment & Plan (07/02/2025 9:16 AM DAIRY TESTER): - On 2 L baseline. Currently on 3L - Prednisone 10 mg q day - On brovena (Arformoterol) Assessment & Plan (07/01/2025 10:31 AM CDT): - On 2 L baseline - Prednisone 10 mg q day - On brovena (Arformoterol) Assessment & Plan (06/30/2025 5:34 PM CDT): - On 2 L baseline - Prednisone 10 mg q day - On brovena (Arformoterol) Assessment & Plan (06/23/2025 8:54 AM CDT): BRAYDEN and 1,25 Vit D elevated. Pulmonology on board. Down to prednisone 10mg daily in preparation for neurosurgery. Assessment & Plan (06/22/2025 12:43 PM CDT): BRAYDEN and 1,25 Vit D elevated. Pulmonology on board. Down to prednisone 10mg daily in preparation for neurosurgery. Assessment & Plan (06/21/2025 9:26 AM CDT): BRAYDEN and 1,25 Vit D elevated. Pulmonology on board. Steroid taper. Assessment & Plan (06/20/2025 2:59 PM CDT): BRAYDEN and 1,25 Vit D elevated. Pulmonology on board. Steroid taper. 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 Replete potassium as necessary. Patient on potassium replacement normally at home. - metoprolol tartrate 25 mg BID - Xarelto held until 2 wks post-op per NSGY (surgery was 06/26) - Lovenox 40 mg SQ q. Pm - on pravastatin Assessment & Plan (07/02/2025 9:16 AM DAIRY TESTER): - On home losartan & amplodipine. Replete potassium as necessary. Patient on potassium replacement normally at home. - metoprolol tartrate 25 mg BID - Xarelto held until 2 wks post-op per NSGY (surgery was 06/26) - Lovenox 40 mg SQ q. Pm - on pravastatin - strict I/Os - daily weights Assessment & Plan (07/01/2025 10:31 AM CDT): - BP up to 151 this morning. Creatinine & BUN low. Restart losartan & amplodipine - metoprolol tartrate 25 mg BID - Xarelto held until 2 wks post-op per NSGY (surgery was 06/26) - Lovenox 40 mg SQ q. Pm - on pravastatin - strict I/Os - daily weights Assessment & Plan (06/30/2025 5:34 PM CDT): - Holding losartin, amplodipine - metoprolol tartrate 25 mg BID - Xarelto held until 2 wks post-op per NSGY (surgery 06/26) - Lovenox 40 mg SQ q. Pm - on pravastatin - strict I/Os - daily weights Assessment & Plan (06/23/2025 8:54 AM CDT): Cardiology was consulted due to abnormal ECHO. 2D ECHO on 06/08 showed mild LV dysfunction with EF 45-50%, grade 2 diastolic dysfunction, moderate RV dysfunction. Nuclear stress test on 06/12 negative. Assessment & Plan (06/22/2025 12:43 PM CDT): Cardiology was consulted due to abnormal ECHO. 2D ECHO on 06/08 showed mild LV dysfunction with EF 45-50%, grade 2 diastolic dysfunction, moderate RV dysfunction. Nuclear stress test on 06/12 negative. Assessment & Plan (06/21/2025 9:26 AM CDT): Cardiology was consulted due to abnormal ECHO. 2D ECHO on 06/08 showed mild LV dysfunction with EF 45-50%, grade 2 diastolic dysfunction, moderate RV dysfunction. Nuclear stress test on 06/12 negative. Assessment & Plan (06/20/2025 2:59 PM CDT): Cardiology was consulted due to abnormal ECHO. 2D ECHO on 06/08 showed mild LV dysfunction with EF 45-50%, grade 2 diastolic dysfunction, moderate RV dysfunction. Nuclear stress test on 06/12 negative. Assessment & Plan (06/12/2025 4:03 PM CDT): -ProBNP 1,101 and chest x-ray showing mild pulmonary vascular congestion on admission. Heart size is normal. Last echo on file was in 2013 and at that time was 60 - 65%. Now down to 40-45% She does have a history of bypass as well as mitral valvuloplasty. I have asked Cardiology to see patient and appreciate their assistance, nuclear medicine stress test has been ordered by Cardiology and is pending -CAD s/p CABG x 2 w/ stents. No chest pain, chronic shortness of breath unchanged from baseline. Troponin 23-21. EKG afib 111 BPM, heart rate has since come down. -Continue on Lopressor and pravastatin. She is on Repatha outpatient. She is not on aspirin since she is on Xarelto which is on hold for now. - May need to resume home diuretic at some point but hesitant to do so given the hypercalcemia degree Assessment & Plan (06/11/2025 10:30 AM CDT): -ProBNP 1,101 and chest x-ray showing mild pulmonary vascular congestion on admission. Heart size is normal. Last echo on file was in 2013 and at that time was 60 - 65%. Now down to 40-45% She does have a history of bypass as well as mitral valvuloplasty. I have asked Cardiology to see patient and appreciate their assistance, nuclear medicine stress test has been ordered by Cardiology and is pending -CAD s/p CABG x 2 w/ stents. No chest pain, chronic shortness of breath unchanged from baseline. Troponin 23-21. EKG afib 111 BPM, heart rate has since come down. -Continue on Lopressor and pravastatin. She is on Repatha outpatient. She is not on aspirin since she is on Xarelto which is on hold for now. -Holding Lasix for the moment since she had decline in kidney function and due to hypercalcemia but elevated proBNP and has mild pulmonary vascular congestion on chest x-ray without a history of heart failure prior to admission. May need to resume home diuretic at some point but hesitant to do so given the hypercalcemia degree Pulmonary nodules 06/11/2025 Mitral stenosis 06/09/2025 Assessment & Plan (06/23/2025 8:54 AM CDT): Cardiology was consulted due to abnormal ECHO. 2D ECHO on 06/08 showed mild LV dysfunction with EF 45-50%, grade 2 diastolic dysfunction, moderate RV dysfunction. Nuclear stress test on 06/12 negative. Assessment & Plan (06/22/2025 12:43 PM CDT): Cardiology was consulted due to abnormal ECHO. 2D ECHO on 06/08 showed mild LV dysfunction with EF 45-50%, grade 2 diastolic dysfunction, moderate RV dysfunction. Nuclear stress test on 06/12 negative. Assessment & Plan (06/21/2025 9:26 AM CDT): Cardiology was consulted due to abnormal ECHO. 2D ECHO on 06/08 showed mild LV dysfunction with EF 45-50%, grade 2 diastolic dysfunction, moderate RV dysfunction. Nuclear stress test on 06/12 negative. Assessment & Plan (06/20/2025 2:59 PM CDT): Cardiology was consulted due to abnormal ECHO. 2D ECHO on 06/08 showed mild LV dysfunction with EF 45-50%, grade 2 diastolic dysfunction, moderate RV dysfunction. Nuclear stress test on 06/12 negative. Assessment & Plan (06/12/2025 4:03 PM CDT): -ProBNP 1,101 and chest x-ray showing mild pulmonary vascular congestion on admission. Heart size is normal. Last echo on file was in 2013 and at that time was 60 - 65%. Now down to 40-45% She does have a history of bypass as well as mitral valvuloplasty. I have asked Cardiology to see patient and appreciate their assistance, nuclear medicine stress test has been ordered by Cardiology and is pending -CAD s/p CABG x 2 w/ stents. No chest pain, chronic shortness of breath unchanged from baseline. Troponin 23-21. EKG afib 111 BPM, heart rate has since come down. -Continue on Lopressor and pravastatin. She is on Repatha outpatient. She is not on aspirin since she is on Xarelto which is on hold for now. - May need to resume home diuretic at some point but hesitant to do so given the hypercalcemia degree Assessment & Plan (06/11/2025 10:30 AM CDT): -ProBNP 1,101 and chest x-ray showing mild pulmonary vascular congestion on admission. Heart size is normal. Last echo on file was in 2013 and at that time was 60 - 65%. Now down to 40-45% She does have a history of bypass as well as mitral valvuloplasty. I have asked Cardiology to see patient and appreciate their assistance, nuclear medicine stress test has been ordered by Cardiology and is pending -CAD s/p CABG x 2 w/ stents. No chest pain, chronic shortness of breath unchanged from baseline. Troponin 23-21. EKG afib 111 BPM, heart rate has since come down. -Continue on Lopressor and pravastatin. She is on Repatha outpatient. She is not on aspirin since she is on Xarelto which is on hold for now. -Holding Lasix for the moment since she had decline in kidney function and due to hypercalcemia but elevated proBNP and has mild pulmonary vascular congestion on chest x-ray without a history of heart failure prior to admission. May need to resume home diuretic at some point but hesitant to do so given the hypercalcemia degree Assessment & Plan (06/10/2025 1:21 PM CDT): -ProBNP 1,101 and chest x-ray showing mild pulmonary vascular congestion on admission. Heart size is normal. Last echo on file was in 2013 and at that time was 60 - 65%. Now down to 40-45% She does have a history of bypass as well as mitral valvuloplasty. I have asked Cardiology to see patient today in consultation in regard to decrease in EF and global hypokinesia -CAD s/p CABG x 2 w/ stents. No chest pain, chronic shortness of breath unchanged from baseline. Troponin 23-21. EKG afib 111 BPM, heart rate has since come down. -Continue on Lopressor and pravastatin. She is on Repatha outpatient. She is not on aspirin since she is on Xarelto which is on hold for now. -Holding Lasix for the moment since she had decline in kidney function and due to hypercalcemia but elevated proBNP and has mild pulmonary vascular congestion on chest x-ray without a history of heart failure prior to admission. Will need to resume home diuretic at some point but hesitant to do so given the hypercalcemia degree Assessment & Plan (06/09/2025 4:16 PM CDT): -ProBNP 1,101 and chest x-ray showing mild pulmonary vascular congestion on admission. Heart size is normal. Last echo on file was in 2013 and at that time was 60 - 65%. Now down to 40-45% She does have a history of bypass as well as mitral valvuloplasty. -CAD s/p CABG x 2 w/ stents. No chest pain, chronic shortness of breath unchanged from baseline. Troponin 23-21. EKG afib 111 BPM, heart rate has since come down. -Continue on Lopressor and pravastatin. She is on Repatha outpatient. She is not on aspirin since she is on Xarelto which is on hold for now. -Holding Lasix for the moment since she has decline in kidney function and due to hypercalcemia but elevated proBNP and has mild pulmonary vascular congestion on chest x-ray without a history of heart failure prior to admission. Will need to resume home diuretic soon most likely Mitral regurgitation 06/09/2025 Assessment & Plan (06/23/2025 8:54 AM CDT): Cardiology was consulted due to abnormal ECHO. 2D ECHO on 06/08 showed mild LV dysfunction with EF 45-50%, grade 2 diastolic dysfunction, moderate RV dysfunction. Nuclear stress test on 06/12 negative. Assessment & Plan (06/22/2025 12:43 PM CDT): Cardiology was consulted due to abnormal ECHO. 2D ECHO on 06/08 showed mild LV dysfunction with EF 45-50%, grade 2 diastolic dysfunction, moderate RV dysfunction. Nuclear stress test on 06/12 negative. Assessment & Plan (06/21/2025 9:26 AM CDT): Cardiology was consulted due to abnormal ECHO. 2D ECHO on 06/08 showed mild LV dysfunction with EF 45-50%, grade 2 diastolic dysfunction, moderate RV dysfunction. Nuclear stress test on 06/12 negative. Assessment & Plan (06/20/2025 2:59 PM CDT): Cardiology was consulted due to abnormal ECHO. 2D ECHO on 06/08 showed mild LV dysfunction with EF 45-50%, grade 2 diastolic dysfunction, moderate RV dysfunction. Nuclear stress test on 06/12 negative. Assessment & Plan (06/12/2025 4:03 PM CDT): -ProBNP 1,101 and chest x-ray showing mild pulmonary vascular congestion on admission. Heart size is normal. Last echo on file was in 2013 and at that time was 60 - 65%. Now down to 40-45% She does have a history of bypass as well as mitral valvuloplasty. I have asked Cardiology to see patient and appreciate their assistance, nuclear medicine stress test has been ordered by Cardiology and is pending -CAD s/p CABG x 2 w/ stents. No chest pain, chronic shortness of breath unchanged from baseline. Troponin 23-21. EKG afib 111 BPM, heart rate has since come down. -Continue on Lopressor and pravastatin. She is on Repatha outpatient. She is not on aspirin since she is on Xarelto which is on hold for now. - May need to resume home diuretic at some point but hesitant to do so given the hypercalcemia degree Assessment & Plan (06/11/2025 10:30 AM CDT): -ProBNP 1,101 and chest x-ray showing mild pulmonary vascular congestion on admission. Heart size is normal. Last echo on file was in 2013 and at that time was 60 - 65%. Now down to 40-45% She does have a history of bypass as well as mitral valvuloplasty. I have asked Cardiology to see patient and appreciate their assistance, nuclear medicine stress test has been ordered by Cardiology and is pending -CAD s/p CABG x 2 w/ stents. No chest pain, chronic shortness of breath unchanged from baseline. Troponin 23-21. EKG afib 111 BPM, heart rate has since come down. -Continue on Lopressor and pravastatin. She is on Repatha outpatient. She is not on aspirin since she is on Xarelto which is on hold for now. -Holding Lasix for the moment since she had decline in kidney function and due to hypercalcemia but elevated proBNP and has mild pulmonary vascular congestion on chest x-ray without a history of heart failure prior to admission. May need to resume home diuretic at some point but hesitant to do so given the hypercalcemia degree Assessment & Plan (06/10/2025 1:21 PM CDT): -ProBNP 1,101 and chest x-ray showing mild pulmonary vascular congestion on admission. Heart size is normal. Last echo on file was in 2013 and at that time was 60 - 65%. Now down to 40-45% She does have a history of bypass as well as mitral valvuloplasty. I have asked Cardiology to see patient today in consultation in regard to decrease in EF and global hypokinesia -CAD s/p CABG x 2 w/ stents. No chest pain, chronic shortness of breath unchanged from baseline. Troponin 23-21. EKG afib 111 BPM, heart rate has since come down. -Continue on Lopressor and pravastatin. She is on Repatha outpatient. She is not on aspirin since she is on Xarelto which is on hold for now. -Holding Lasix for the moment since she had decline in kidney function and due to hypercalcemia but elevated proBNP and has mild pulmonary vascular congestion on chest x-ray without a history of heart failure prior to admission. Will need to resume home diuretic at some point but hesitant to do so given the hypercalcemia degree Assessment & Plan (06/09/2025 4:16 PM CDT): -ProBNP 1,101 and chest x-ray showing mild pulmonary vascular congestion on admission. Heart size is normal. Last echo on file was in 2013 and at that time was 60 - 65%. Now down to 40-45% She does have a history of bypass as well as mitral valvuloplasty. -CAD s/p CABG x 2 w/ stents. No chest pain, chronic shortness of breath unchanged from baseline. Troponin 23-21. EKG afib 111 BPM, heart rate has since come down. -Continue on Lopressor and pravastatin. She is on Repatha outpatient. She is not on aspirin since she is on Xarelto which is on hold for now. -Holding Lasix for the moment since she has decline in kidney function and due to hypercalcemia but elevated proBNP and has mild pulmonary vascular congestion on chest x-ray without a history of heart failure prior to admission. Will need to resume home diuretic soon most likely Aortic regurgitation 06/09/2025 Assessment & Plan (06/23/2025 8:54 AM CDT): Cardiology was consulted due to abnormal ECHO. 2D ECHO on 06/08 showed mild LV dysfunction with EF 45-50%, grade 2 diastolic dysfunction, moderate RV dysfunction. Nuclear stress test on 06/12 negative. Assessment & Plan (06/22/2025 12:43 PM CDT): Cardiology was consulted due to abnormal ECHO. 2D ECHO on 06/08 showed mild LV dysfunction with EF 45-50%, grade 2 diastolic dysfunction, moderate RV dysfunction. Nuclear stress test on 06/12 negative. Assessment & Plan (06/21/2025 9:26 AM CDT): Cardiology was consulted due to abnormal ECHO. 2D ECHO on 06/08 showed mild LV dysfunction with EF 45-50%, grade 2 diastolic dysfunction, moderate RV dysfunction. Nuclear stress test on 06/12 negative. Assessment & Plan (06/20/2025 2:59 PM CDT): Cardiology was consulted due to abnormal ECHO. 2D ECHO on 06/08 showed mild LV dysfunction with EF 45-50%, grade 2 diastolic dysfunction, moderate RV dysfunction. Nuclear stress test on 06/12 negative. Assessment & Plan (06/12/2025 4:03 PM CDT): -ProBNP 1,101 and chest x-ray showing mild pulmonary vascular congestion on admission. Heart size is normal. Last echo on file was in 2013 and at that time was 60 - 65%. Now down to 40-45% She does have a history of bypass as well as mitral valvuloplasty. I have asked Cardiology to see patient and appreciate their assistance, nuclear medicine stress test has been ordered by Cardiology and is pending -CAD s/p CABG x 2 w/ stents. No chest pain, chronic shortness of breath unchanged from baseline. Troponin 23-21. EKG afib 111 BPM, heart rate has since come down. -Continue on Lopressor and pravastatin. She is on Repatha outpatient. She is not on aspirin since she is on Xarelto which is on hold for now. - May need to resume home diuretic at some point but hesitant to do so given the hypercalcemia degree Assessment & Plan (06/11/2025 10:30 AM CDT): -ProBNP 1,101 and chest x-ray showing mild pulmonary vascular congestion on admission. Heart size is normal. Last echo on file was in 2013 and at that time was 60 - 65%. Now down to 40-45% She does have a history of bypass as well as mitral valvuloplasty. I have asked Cardiology to see patient and appreciate their assistance, nuclear medicine stress test has been ordered by Cardiology and is pending -CAD s/p CABG x 2 w/ stents. No chest pain, chronic shortness of breath unchanged from baseline. Troponin 23-21. EKG afib 111 BPM, heart rate has since come down. -Continue on Lopressor and pravastatin. She is on Repatha outpatient. She is not on aspirin since she is on Xarelto which is on hold for now. -Holding Lasix for the moment since she had decline in kidney function and due to hypercalcemia but elevated proBNP and has mild pulmonary vascular congestion on chest x-ray without a history of heart failure prior to admission. May need to resume home diuretic at some point but hesitant to do so given the hypercalcemia degree Assessment & Plan (06/10/2025 1:21 PM CDT): -ProBNP 1,101 and chest x-ray showing mild pulmonary vascular congestion on admission. Heart size is normal. Last echo on file was in 2013 and at that time was 60 - 65%. Now down to 40-45% She does have a history of bypass as well as mitral valvuloplasty. I have asked Cardiology to see patient today in consultation in regard to decrease in EF and global hypokinesia -CAD s/p CABG x 2 w/ stents. No chest pain, chronic shortness of breath unchanged from baseline. Troponin 23-21. EKG afib 111 BPM, heart rate has since come down. -Continue on Lopressor and pravastatin. She is on Repatha outpatient. She is not on aspirin since she is on Xarelto which is on hold for now. -Holding Lasix for the moment since she had decline in kidney function and due to hypercalcemia but elevated proBNP and has mild pulmonary vascular congestion on chest x-ray without a history of heart failure prior to admission. Will need to resume home diuretic at some point but hesitant to do so given the hypercalcemia degree Assessment & Plan (06/09/2025 4:16 PM CDT): -ProBNP 1,101 and chest x-ray showing mild pulmonary vascular congestion on admission. Heart size is normal. Last echo on file was in 2013 and at that time was 60 - 65%. Now down to 40-45% She does have a history of bypass as well as mitral valvuloplasty. -CAD s/p CABG x 2 w/ stents. No chest pain, chronic shortness of breath unchanged from baseline. Troponin 23-21. EKG afib 111 BPM, heart rate has since come down. -Continue on Lopressor and pravastatin. She is on Repatha outpatient. She is not on aspirin since she is on Xarelto which is on hold for now. -Holding Lasix for the moment since she has decline in kidney function and due to hypercalcemia but elevated proBNP and has mild pulmonary vascular congestion on chest x-ray without a history of heart failure prior to admission. Will need to resume home diuretic soon most likely Grade II diastolic dysfunction 06/09/2025 Assessment & Plan (06/23/2025 8:54 AM CDT): Cardiology was consulted due to abnormal ECHO. 2D ECHO on 06/08 showed mild LV dysfunction with EF 45-50%, grade 2 diastolic dysfunction, moderate RV dysfunction. Nuclear stress test on 06/12 negative. Assessment & Plan (06/22/2025 12:43 PM CDT): Cardiology was consulted due to abnormal ECHO. 2D ECHO on 06/08 showed mild LV dysfunction with EF 45-50%, grade 2 diastolic dysfunction, moderate RV dysfunction. Nuclear stress test on 06/12 negative. Assessment & Plan (06/21/2025 9:26 AM CDT): Cardiology was consulted due to abnormal ECHO. 2D ECHO on 06/08 showed mild LV dysfunction with EF 45-50%, grade 2 diastolic dysfunction, moderate RV dysfunction. Nuclear stress test on 06/12 negative. Assessment & Plan (06/20/2025 2:59 PM CDT): Cardiology was consulted due to abnormal ECHO. 2D ECHO on 06/08 showed mild LV dysfunction with EF 45-50%, grade 2 diastolic dysfunction, moderate RV dysfunction. Nuclear stress test on 06/12 negative. Assessment & Plan (06/12/2025 4:03 PM CDT): -ProBNP 1,101 and chest x-ray showing mild pulmonary vascular congestion on admission. Heart size is normal. Last echo on file was in 2013 and at that time was 60 - 65%. Now down to 40-45% She does have a history of bypass as well as mitral valvuloplasty. I have asked Cardiology to see patient and appreciate their assistance, nuclear medicine stress test has been ordered by Cardiology and is pending -CAD s/p CABG x 2 w/ stents. No chest pain, chronic shortness of breath unchanged from baseline. Troponin 23-21. EKG afib 111 BPM, heart rate has since come down. -Continue on Lopressor and pravastatin. She is on Repatha outpatient. She is not on aspirin since she is on Xarelto which is on hold for now. - May need to resume home diuretic at some point but hesitant to do so given the hypercalcemia degree Assessment & Plan (06/11/2025 10:30 AM CDT): -ProBNP 1,101 and chest x-ray showing mild pulmonary vascular congestion on admission. Heart size is normal. Last echo on file was in 2013 and at that time was 60 - 65%. Now down to 40-45% She does have a history of bypass as well as mitral valvuloplasty. I have asked Cardiology to see patient and appreciate their assistance, nuclear medicine stress test has been ordered by Cardiology and is pending -CAD s/p CABG x 2 w/ stents. No chest pain, chronic shortness of breath unchanged from baseline. Troponin 23-21. EKG afib 111 BPM, heart rate has since come down. -Continue on Lopressor and pravastatin. She is on Repatha outpatient. She is not on aspirin since she is on Xarelto which is on hold for now. -Holding Lasix for the moment since she had decline in kidney function and due to hypercalcemia but elevated proBNP and has mild pulmonary vascular congestion on chest x-ray without a history of heart failure prior to admission. May need to resume home diuretic at some point but hesitant to do so given the hypercalcemia degree Assessment & Plan (06/10/2025 1:21 PM CDT): -ProBNP 1,101 and chest x-ray showing mild pulmonary vascular congestion on admission. Heart size is normal. Last echo on file was in 2013 and at that time was 60 - 65%. Now down to 40-45% She does have a history of bypass as well as mitral valvuloplasty. I have asked Cardiology to see patient today in consultation in regard to decrease in EF and global hypokinesia -CAD s/p CABG x 2 w/ stents. No chest pain, chronic shortness of breath unchanged from baseline. Troponin 23-21. EKG afib 111 BPM, heart rate has since come down. -Continue on Lopressor and pravastatin. She is on Repatha outpatient. She is not on aspirin since she is on Xarelto which is on hold for now. -Holding Lasix for the moment since she had decline in kidney function and due to hypercalcemia but elevated proBNP and has mild pulmonary vascular congestion on chest x-ray without a history of heart failure prior to admission. Will need to resume home diuretic at some point but hesitant to do so given the hypercalcemia degree Assessment & Plan (06/09/2025 4:16 PM CDT): -ProBNP 1,101 and chest x-ray showing mild pulmonary vascular congestion on admission. Heart size is normal. Last echo on file was in 2013 and at that time was 60 - 65%. Now down to 40-45% She does have a history of bypass as well as mitral valvuloplasty. -CAD s/p CABG x 2 w/ stents. No chest pain, chronic shortness of breath unchanged from baseline. Troponin 23-21. EKG afib 111 BPM, heart rate has since come down. -Continue on Lopressor and pravastatin. She is on Repatha outpatient. She is not on aspirin since she is on Xarelto which is on hold for now. -Holding Lasix for the moment since she has decline in kidney function and due to hypercalcemia but elevated proBNP and has mild pulmonary vascular congestion on chest x-ray without a history of heart failure prior to admission. Will need to resume home diuretic soon most likely Generalized weakness 06/07/2025 Assessment & Plan (07/03/2025 7:24 AM DAIRY TESTER): - manage underlying conditions - PT/OT - Thin liquids and aspiration precautions per speech (thin liquids, small bites normal food, upright when eating). Assessment & Plan (07/02/2025 9:16 AM DAIRY TESTER): - manage underlying conditions - PT/OT - Thin liquids and aspiration precautions per speech (thin liquids, small bites normal food, upright when eating). Assessment & Plan (07/01/2025 10:31 AM CDT): - manage underlying conditions - PT/OT - Barium swallow did not show marianne aspiration. Thin liquids and aspiration precautions per speech (thin liquids, small bites normal food, upright when eating). Assessment & Plan (06/30/2025 5:34 PM CDT): - manage underlying conditions - PT/OT Assessment & Plan (06/23/2025 6:32 PM CDT): Neurosurgery on board. Cervical spine surgery planned for Thursday. Will need pulmonology and cardiac clearance. Assessment & Plan (06/22/2025 12:43 PM CDT): Neurosurgery on board. Cervical spine surgery planned for Thursday. Will need pulmonology and cardiac clearance. Tentatively cleared at this point. Assessment & Plan (06/21/2025 3:44 PM CDT): Neurosurgery on board. Cervical spine surgery planned for Thursday. Will need pulmonology and cardiac clearance. Assessment & Plan (06/20/2025 2:59 PM CDT): Neurosurgery on board. Trying to figure out optimal timing of cervical surgery since patient on high dose steroids which could impair wound healing. Assessment & Plan (06/12/2025 4:03 PM CDT): Disc. Evaluated by neurosurgeon, he did not feel that her current symptoms and abnormal labs were the issue although he was going to obtain the cervical spine MRI obtained at [facility] this summer for further evaluation. Told he would be back Thursday (today). He asked that we hold her anticoagulation in case intervention needed which I have still been doing. -PT and OT evaluation -Fall precautions Assessment & Plan (06/11/2025 10:29 AM CDT): Disc. Evaluated by neurosurgeon, he did not feel that her current symptoms and abnormal labs were the issue although he was going to obtain the cervical spine MRI obtained at [facility] this summer for further evaluation. Told he would be back Thursday. He asked that we hold her anticoagulation in case intervention needed. -PT and OT evaluation -Fall precautions Assessment & Plan (06/10/2025 1:21 PM CDT): Disc. Evaluated by neurosurgeo, to not feel that her current symptoms and abnormal labs were the issue although he was going to obtain the cervical spine MRI obtained at [facility] this summer for further evaluation. He asked that we hold her anticoagulation, but can not get VTE Lovenox while here in case procedure surgical intervention. -PT and OT evaluation -Fall precautions Assessment & Plan (06/09/2025 4:16 PM CDT): Disc. Evaluated by neurosurgeo, to not feel that her current symptoms and abnormal labs were the issue although he was going to obtain the cervical spine MRI obtained at [facility] this summer for further evaluation. He asked that we hold her anticoagulation, but can not get VTE Lovenox while here in case procedure surgical intervention. -PT and OT evaluation -Fall precautions Assessment & Plan (06/07/2025 6:29 PM CDT): -Ongoing chronic and progressive arm and leg weakness. Explains that her right leg gets numb around her knee and then her leg will give out resulting in falls. She also has weakness to her upper extremities and cannot steel pickler her pills her has to give them to her and will drop things frequently, dropping fork when I was seeing her. She does ambulate with a walker at home and has physical therapy twice a week. 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 Declined surgical intervention last month wanted to work with physical therapy but since then progressive decline. Evaluated by neurosurgeon today, to not feel that her current symptoms and abnormal labs were the issue although he was going to obtain the cervical spine MRI obtained at [facility] this summer for further evaluation. He asked that we hold her anticoagulation, but can not get VTE Lovenox while here in case procedure surgical intervention. -PT and OT evaluation -Fall precautions -Evaluation of her decline in kidney function, hypercalcemia, and elevated alk- phos. Workup in process as noted below. Hypercalcemia 06/07/2025 Assessment & Plan (06/23/2025 8:54 AM CDT): BRAYDEN and 1,25 Vit D elevated. Pulmonology on board. Down to prednisone 10mg daily in preparation for neurosurgery. Assessment & Plan (06/22/2025 12:43 PM CDT): BRAYDEN and 1,25 Vit D elevated. Pulmonology on board. Down to prednisone 10mg daily in preparation for neurosurgery. Assessment & Plan (06/21/2025 9:26 AM CDT): BRAYDEN and 1,25 Vit D elevated. Pulmonology on board. Steroid taper. Assessment & Plan (06/20/2025 2:59 PM CDT): BRAYDEN and 1,25 Vit D elevated. Pulmonology on board. Steroid taper. Assessment & Plan (06/12/2025 4:04 PM CDT): - moderate to severe levels today, new diagnosis on admit, down trended some with fluid but rebounded, PTH low so therefore non PTH mediated Vitamin-D within normal, 125 vitamin-D pending - I checked with lab and it is in process, PTHrP pending - I checked with lab and it is in process - BRAYDEN level pending UPEP, SPEP, light chains all pending - worsening today CT c/a/p - numerous pulm lesions, liver lesion -? Sarcoidosis, ? Granulomatous dz ? Malignancy I consulted pulmonology Bronchoscopy was done today and discussed with Pulmonology today and okay to go ahead and start steroids now that biopsy done- Starting Prednisone 40 mg today and will monitor response If trends up further - will need calcitonin or zometa Assessment & Plan (06/11/2025 10:29 AM CDT): - moderate, on admit, down trended with fluid, PTH low so therefore non PTH mediated Vitamin-D within normal, 125 vitamin-D pending, PTHrP pending UPEP, SPEP, light chains all pending No change with hydration, holding lasix Only in the moderate level so does not need treatment at this time CT c/a/p - numerous pulm lesions, liver lesion -? Sarcoidosis, ? Malignancy, asking pulmonology to consult today and discussed with Dr. Corrales Assessment & Plan (06/10/2025 1:21 PM CDT): -Hypercalcemia of 12.2, on admit, down trended with fluid, PTH low so therefore non PTH mediated Vitamin-D within normal, 125 vitamin-D pending, PTHrP pending UPEP, SPEP, light chains all pending and ordered Will give 1 L fluid today as calcium has increased again Only in the moderate level so does not need treatment at this time Will get CT chest abdomen pelvis and may need Oncology to see patient depending upon results as well as PTHrP result Assessment & Plan (06/09/2025 4:16 PM CDT): -Hypercalcemia of 12.2, on admit, down trended with fluid, PTH low Vitamin-D within normal, 125 vitamin-D pending, PTHrP pending concern would be hypercalcemia of malignancy however may be less likely given the improvements with fluids he Assessment & Plan (06/07/2025 6:29 PM CDT): -Hypercalcemia of 12.2. Do not see any for prior elevated calcium levels. She does take vitamin-D which I will hold for now. Ionized calcium 5.91 and this was after normal saline 500 mL bolus. TSH WNL. Vitamin-D level 554 which is WNL. PTH pending. -AM ionized calcium Lumbar spinal stenosis 06/07/2025 Assessment & Plan (06/23/2025 6:32 PM CDT): Neurosurgery on board. Cervical spine surgery planned for Thursday. Will need pulmonology and cardiac clearance. Assessment & Plan (06/22/2025 12:43 PM CDT): Neurosurgery on board. Cervical spine surgery planned for Thursday. Will need pulmonology and cardiac clearance. Tentatively cleared at this point. Assessment & Plan (06/21/2025 3:44 PM CDT): Neurosurgery on board. Cervical spine surgery planned for Thursday. Will need pulmonology and cardiac clearance. Assessment & Plan (06/20/2025 2:59 PM CDT): Neurosurgery on board. Trying to figure out optimal timing of cervical surgery since patient on high dose steroids which could impair wound healing. Assessment & Plan (06/12/2025 4:03 PM CDT): Disc. Evaluated by neurosurgeon, he did not feel that her current symptoms and abnormal labs were the issue although he was going to obtain the cervical spine MRI obtained at [facility] this summer for further evaluation. Told he would be back Thursday (today). He asked that we hold her anticoagulation in case intervention needed which I have still been doing. -PT and OT evaluation -Fall precautions Assessment & Plan (06/11/2025 10:29 AM CDT): Disc. Evaluated by neurosurgeon, he did not feel that her current symptoms and abnormal labs were the issue although he was going to obtain the cervical spine MRI obtained at [facility] this summer for further evaluation. Told he would be back Thursday. He asked that we hold her anticoagulation in case intervention needed. -PT and OT evaluation -Fall precautions Assessment & Plan (06/10/2025 1:21 PM CDT): Disc. Evaluated by neurosurgeo, to not feel that her current symptoms and abnormal labs were the issue although he was going to obtain the cervical spine MRI obtained at [facility] this summer for further evaluation. He asked that we hold her anticoagulation, but can not get VTE Lovenox while here in case procedure surgical intervention. -PT and OT evaluation -Fall precautions Assessment & Plan (06/09/2025 4:16 PM CDT): Disc. Evaluated by neurosurgeo, to not feel that her current symptoms and abnormal labs were the issue although he was going to obtain the cervical spine MRI obtained at [facility] this summer for further evaluation. He asked that we hold her anticoagulation, but can not get VTE Lovenox while here in case procedure surgical intervention. -PT and OT evaluation -Fall precautions Assessment & Plan (06/07/2025 6:29 PM CDT): -Ongoing chronic and progressive arm and leg weakness. Explains that her right leg gets numb around her knee and then her leg will give out resulting in falls. She also has weakness to her upper extremities and cannot steel pickler her pills her has to give them to her and will drop things frequently, dropping fork when I was seeing her. She does ambulate with a walker at home and has physical therapy twice a week. 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 Declined surgical intervention last month wanted to work with physical therapy but since then progressive decline. Evaluated by neurosurgeon today, to not feel that her current symptoms and abnormal labs were the issue although he was going to obtain the cervical spine MRI obtained at [facility] this summer for further evaluation. He asked that we hold her anticoagulation, but can not get VTE Lovenox while here in case procedure surgical intervention. -PT and OT evaluation -Fall precautions -Evaluation of her decline in kidney function, hypercalcemia, and elevated alk- phos. Workup in process as noted below. Alkaline phosphatase elevation 06/07/2025 Assessment & Plan (06/23/2025 8:54 AM CDT): Has been elevated in the past, ultrasound liver was done and negative, can be done outpatient workup Assessment & Plan (06/22/2025 12:43 PM CDT): Has been elevated in the past, ultrasound liver was done and negative, can be done outpatient workup Assessment & Plan (06/21/2025 3:44 PM CDT): Has been elevated in the past, ultrasound liver was done and negative, can be done outpatient workup Assessment & Plan (06/20/2025 7:20 AM CDT): has been elevated in the past, ultrasound liver was done and negative, can be done outpatient workup Assessment & Plan (06/12/2025 4:03 PM CDT): has been elevated in the past, ultrasound liver was done and negative, can be done outpatient workup Assessment & Plan (06/11/2025 7:38 AM CDT): has been elevated in the past, ultrasound liver was done and negative, can be done outpatient workup Assessment & Plan (06/10/2025 1:21 PM CDT): has been elevated in the past, ultrasound liver was done and negative, can be done outpatient workup Assessment & Plan (06/09/2025 4:16 PM CDT): has been elevated in the past, ultrasound liver was done and negative, can be done outpatient workup Assessment & Plan (06/07/2025 6:29 PM CDT): -Alk-phos is elevated today at 266 with normal LFT is otherwise but is lower than it was 2 months ago when it was 390 and at that time her ALT was 78 and AST of 74. She is on medications that can elevate her LFTs. Her patternator has recommended liver ultrasound and his notes this is not been done yet so will go ahead and obtain liver ultrasound. Trend LFTs, repeat in the a.m.. Chronic respiratory failure with hypoxia 025 Assessment & Plan (07/03/2025 7:24 AM DAIRY TESTER): - On 2 L baseline. Currently on 3L - Prednisone 10 mg q day - On brovena (Arformoterol) Assessment & Plan (07/02/2025 9:16 AM DAIRY TESTER): - On 2 L baseline. Currently on 3L - Prednisone 10 mg q day - On brovena (Arformoterol) Assessment & Plan (07/01/2025 10:31 AM CDT): - On 2 L baseline - Prednisone 10 mg q day - On brovena (Arformoterol) Assessment & Plan (06/30/2025 5:34 PM CDT): - On 2 L baseline - Prednisone 10 mg q day - On brovena (Arformoterol) Assessment & Plan (06/23/2025 8:54 AM CDT): On chronic 2 L nasal cannula at home reports OA short of breath. Continue home inhalers. Assessment & Plan (06/22/2025 12:43 PM CDT): On chronic 2 L nasal cannula at home reports OA short of breath. Continue home inhalers. Assessment & Plan (06/21/2025 9:26 AM CDT): On chronic 2 L nasal cannula at home reports OA short of breath. Continue home inhalers. Assessment & Plan (06/20/2025 2:59 PM CDT): On chronic 2 L nasal cannula at home reports OA short of breath. Continue home inhalers. Assessment & Plan (06/12/2025 4:03 PM CDT): -Patient a nonsmoker but had secondhand smoke exposure earlier on in life. She is on chronic 2 L nasal cannula at home reports OA short of breath. Nonproductive cough. She setting okay on her current O2 2 L. -Continue on Brovana inhaler - CT results with numerous nodules, concern for sarcoidosis, discussed with pulmonology today who will see patient, likely need bronchoscopy Assessment & Plan (06/11/2025 10:29 AM CDT): -Patient a nonsmoker but had secondhand smoke exposure earlier on in life. She is on chronic 2 L nasal cannula at home reports OA short of breath. Nonproductive cough. She setting okay on her current O2 2 L. -Continue on Brovana inhaler - CT results with numerous nodules, concern for sarcoidosis, discussed with pulmonology today who will see patient, likely need bronchoscopy Assessment & Plan (06/10/2025 1:21 PM CDT): -Patient a nonsmoker but had secondhand smoke exposure earlier on in life. She is on chronic 2 L nasal cannula at home reports OA short of breath. Nonproductive cough. She setting okay on her current O2 2 L. -Continue on Brovana inhaler Assessment & Plan (06/09/2025 12:23 PM CDT): -Patient a nonsmoker but had secondhand smoke exposure earlier on in life. She is on chronic 2 L nasal cannula at home reports OA short of breath. Nonproductive cough. She setting okay on her current O2 2 L. -Continue on Brovana inhaler Assessment & Plan (06/07/2025 6:29 PM CDT): -Patient a nonsmoker but had secondhand smoke exposure earlier on in life. She is on chronic 2 L nasal cannula at home reports OA short of breath. Nonproductive cough. She setting okay on her current O2 2 L. -Continue on Brovana inhaler Type 2 diabetes mellitus wit hout complication, without long-term current use of insulin 06/07/2025 Assessment & Plan (07/03/2025 9:15 AM DAIRY TESTER): - Lantus 10 Units q. am - 5 units lispro TID with meals - SSI - Carb consistent diet Assessment & Plan (07/02/2025 9:16 AM DAIRY TESTER): - Increased Lantus to 10 Units q. am - 5 units lispro TID with meals - SSI - Carb consistent diet Assessment & Plan (07/01/2025 10:41 AM CDT): - Increase Lantus to 10 Units q. am - 5 units lispro TID with meals - SSI - Carb consistent diet Assessment & Plan (06/30/2025 5:34 PM CDT): - Lantus increase to 15 Units q. Night - 5 units lispro TID with meals - SSI - Carb consistent diet Assessment & Plan (06/23/2025 8:54 AM CDT): Low dose SSI. Assessment & Plan (06/22/2025 12:43 PM CDT): Low dose SSI. Assessment & Plan (06/21/2025 9:26 AM CDT): Low dose SSI. Assessment & Plan (06/20/2025 2:59 PM CDT): Low dose SSI. Assessment & Plan (06/12/2025 4:03 PM CDT): A1c 6.2. Holding home metformin -Consistent carb diet If needed will add insulin at this time not requiring Assessment & Plan (06/11/2025 7:38 AM CDT): A1c 6.2. Holding home metformin -Consistent carb diet If needed will add insulin at this time not requiring Assessment & Plan (06/10/2025 1:21 PM CDT): A1c 6.2. Holding home metformin -Consistent carb diet If needed will add insulin at this time not requiring Assessment & Plan (06/09/2025 4:16 PM CDT): A1c 6.2. Holding home metformin -Consistent carb diet If needed will add insulin at this timenot requiring Assessment & Plan (06/07/2025 6:29 PM CDT): -Check hemoglobin A1c. Glucose on lab work 116. Hold Glucophage. Hold off on checking Accu-Cheks and sliding scale insulin as glucose stable on blood work. -Consistent carb diet Essential hypertension 06/07/2025 Assessment & Plan (07/03/2025 9:15 AM DAIRY TESTER): - On home losartan & amplodipine. Replete potassium as necessary. Patient on potassium replacement normally at home. - metoprolol tartrate 25 mg BID - Xarelto held until 2 wks post-op per NSGY (surgery was 06/26) - Lovenox 40 mg SQ q. Pm - on pravastatin Assessment & Plan (07/02/2025 9:16 AM DAIRY TESTER): - On home losartan & amplodipine. Replete potassium as necessary. Patient on potassium replacement normally at home. - metoprolol tartrate 25 mg BID - Xarelto held until 2 wks post-op per NSGY (surgery was 06/26) - Lovenox 40 mg SQ q. Pm - on pravastatin - strict I/Os - daily weights Assessment & Plan (07/01/2025 10:31 AM CDT): - BP up to 151 this morning. Creatinine & BUN low. Restart losartan & amplodipine - metoprolol tartrate 25 mg BID - Xarelto held until 2 wks post-op per NSGY (surgery was 06/26) - Lovenox 40 mg SQ q. Pm - on pravastatin - strict I/Os - daily weights Assessment & Plan (06/30/2025 5:34 PM CDT): - Holding losartin, amplodipine - metoprolol tartrate 25 mg BID - Xarelto held until 2 wks post-op per NSGY (surgery 06/26) - Lovenox 40 mg SQ q. Pm - on pravastatin - strict I/Os - daily weights Assessment & Plan (06/23/2025 8:54 AM CDT): Cardiology was consulted due to abnormal ECHO. 2D ECHO on 06/08 showed mild LV dysfunction with EF 45-50%, grade 2 diastolic dysfunction, moderate RV dysfunction. Nuclear stress test on 06/12 negative. Assessment & Plan (06/22/2025 12:43 PM CDT): Cardiology was consulted due to abnormal ECHO. 2D ECHO on 06/08 showed mild LV dysfunction with EF 45-50%, grade 2 diastolic dysfunction, moderate RV dysfunction. Nuclear stress test on 06/12 negative. Assessment & Plan (06/21/2025 9:26 AM CDT): Cardiology was consulted due to abnormal ECHO. 2D ECHO on 06/08 showed mild LV dysfunction with EF 45-50%, grade 2 diastolic dysfunction, moderate RV dysfunction. Nuclear stress test on 06/12 negative. Assessment & Plan (06/20/2025 2:59 PM CDT): Cardiology was consulted due to abnormal ECHO. 2D ECHO on 06/08 showed mild LV dysfunction with EF 45-50%, grade 2 diastolic dysfunction, moderate RV dysfunction. Nuclear stress test on 06/12 negative. Assessment & Plan (06/12/2025 4:03 PM CDT): -ProBNP 1,101 and chest x-ray showing mild pulmonary vascular congestion on admission. Heart size is normal. Last echo on file was in 2013 and at that time was 60 - 65%. Now down to 40-45% She does have a history of bypass as well as mitral valvuloplasty. I have asked Cardiology to see patient and appreciate their assistance, nuclear medicine stress test has been ordered by Cardiology and is pending -CAD s/p CABG x 2 w/ stents. No chest pain, chronic shortness of breath unchanged from baseline. Troponin 23-21. EKG afib 111 BPM, heart rate has since come down. -Continue on Lopressor and pravastatin. She is on Repatha outpatient. She is not on aspirin since she is on Xarelto which is on hold for now. - May need to resume home diuretic at some point but hesitant to do so given the hypercalcemia degree Assessment & Plan (06/11/2025 10:30 AM CDT): -ProBNP 1,101 and chest x-ray showing mild pulmonary vascular congestion on admission. Heart size is normal. Last echo on file was in 2014 and at that time was 60 - 65%. Now down to 40-45% She does have a history of bypass as well as mitral valvuloplasty. I have asked Cardiology to see patient and appreciate their assistance, nuclear medicine stress test has been ordered by Cardiology and is pending -CAD s/p CABG x 2 w/ stents. No chest pain, chronic shortness of breath unchanged from baseline. Troponin 23-21. EKG afib 111 BPM, heart rate has since come down. -Continue on Lopressor and pravastatin. She is on Repatha outpatient. She is not on aspirin since she is on Xarelto which is on hold for now. -Holding Lasix for the moment since she had decline in kidney function and due to hypercalcemia but elevated proBNP and has mild pulmonary vascular congestion on chest x-ray without a history of heart failure prior to admission. May need to resume home diuretic at some point but hesitant to do so given the hypercalcemia degree Assessment & Plan (06/10/2025 1:21 PM CDT): -ProBNP 1,101 and chest x-ray showing mild pulmonary vascular congestion on admission. Heart size is normal. Last echo on file was in 2013 and at that time was 60 - 65%. Now down to 40-45% She does have a history of bypass as well as mitral valvuloplasty. I have asked Cardiology to see patient today in consultation in regard to decrease in EF and global hypokinesia -CAD s/p CABG x 2 w/ stents. No chest pain, chronic shortness of breath unchanged from baseline. Troponin 23-21. EKG afib 111 BPM, heart rate has since come down. -Continue on Lopressor and pravastatin. She is on Repatha outpatient. She is not on aspirin since she is on Xarelto which is on hold for now. -Holding Lasix for the moment since she had decline in kidney function and due to hypercalcemia but elevated proBNP and has mild pulmonary vascular congestion on chest x-ray without a history of heart failure prior to admission. Will need to resume home diuretic at some point but hesitant to do so given the hypercalcemia degree Assessment & Plan (06/09/2025 4:16 PM CDT): -ProBNP 1,101 and chest x-ray showing mild pulmonary vascular congestion on admission. Heart size is normal. Last echo on file was in 2013 and at that time was 60 - 65%. Now down to 40-45% She does have a history of bypass as well as mitral valvuloplasty. -CAD s/p CABG x 2 w/ stents. No chest pain, chronic shortness of breath unchanged from baseline. Troponin 23-21. EKG afib 111 BPM, heart rate has since come down. -Continue on Lopressor and pravastatin. She is on Repatha outpatient. She is not on aspirin since she is on Xarelto which is on hold for now. -Holding Lasix for the moment since she has decline in kidney function and due to hypercalcemia but elevated proBNP and has mild pulmonary vascular congestion on chest x-ray without a history of heart failure prior to admission. Will need to resume home diuretic soon most likely Assessment & Plan (06/07/2025 6:29 PM CDT): -CAD s/p CABG x 2 w/ stents. No chest pain, chronic shortness of breath unchanged from baseline. Troponin 23-21. EKG afib 111 BPM, heart rate has since come down. -Continue on Lopressor and pravastatin. She is on Repatha outpatient. She is not on aspirin since she is on Xarelto which is on hold for now. -Holding Lasix for the moment since she has decline in kidney function but elevated proBNP and has mild pulmonary vascular congestion on chest x-ray without a history of heart failure. Obtaining echocardiogram. Atrial fibrillation 06/07/2025 Assessment & Plan (07/03/2025 9:15 AM DAIRY TESTER): - On home losartan & amplodipine. Replete potassium as necessary. Patient on potassium replacement normally at home. - metoprolol tartrate 25 mg BID - Xarelto held until 2 wks post-op per NSGY (surgery was 06/26) - Lovenox 40 mg SQ q. Pm - on pravastatin Assessment & Plan (07/02/2025 9:16 AM DAIRY TESTER): - On home losartan & amplodipine. Replete potassium as necessary. Patient on potassium replacement normally at home. - metoprolol tartrate 25 mg BID - Xarelto held until 2 wks post-op per NSGY (surgery was 06/26) - Lovenox 40 mg SQ q. Pm - on pravastatin - strict I/Os - daily weights Assessment & Plan (07/01/2025 10:31 AM CDT): - BP up to 151 this morning. Creatinine & BUN low. Restart losartan & amplodipine - metoprolol tartrate 25 mg BID - Xarelto held until 2 wks post-op per NSGY (surgery was 06/26) - Lovenox 40 mg SQ q. Pm - on pravastatin - strict I/Os - daily weights Assessment & Plan (06/30/2025 5:34 PM CDT): - Holding losartin, amplodipine - metoprolol tartrate 25 mg BID - Xarelto held until 2 wks post-op per NSGY (surgery 06/26) - Lovenox 40 mg SQ q. Pm - on pravastatin - strict I/Os - daily weights Assessment & Plan (06/23/2025 8:54 AM CDT): On sotalol and lopressor. Holding xarelto in case surgical intervention needed. On lovenox. Last dose on Thursday before surgery Assessment & Plan (06/22/2025 12:43 PM CDT): On sotalol and lopressor. Holding xarelto in case surgical intervention needed. On lovenox. Last dose on Thursday before surgery Assessment & Plan (06/21/2025 3:44 PM CDT): On sotalol and lopressor. Holding xarelto in case surgical intervention needed. On lovenox. Last dose on Thursday before surgery Assessment & Plan (06/20/2025 2:59 PM CDT): On sotalol and lopressor. Holding xarelto in case surgical intervention needed. On lovenox. Assessment & Plan (06/12/2025 4:03 PM CDT): Continue on sotalol and Lopressor however increased lopressor dose today with rvr overnight Holding her anticoagulation in case surgical intervention needed Assessment & Plan (06/11/2025 10:29 AM CDT): Continue on sotalol and Lopressor however increased lopressor dose today with rvr overnight Holding her anticoagulation in case surgical intervention needed Assessment & Plan (06/10/2025 1:21 PM CDT): Continue on sotalol and Lopressor. Holding her anticoagulation in case surgical intervention pending recommendations of her neurosurgeon Dr. Renae. Per his ortho ON SITE COORDINATOR he will be back Thursday Assessment & Plan (06/09/2025 4:16 PM CDT): Continue on sotalol and Lopressor. Holding her anticoagulation in case surgical intervention pending recommendations of her neurosurgeon Dr. Renae. Per his ortho ON SITE COORDINATOR he will be back Thursday Assessment & Plan (06/07/2025 6:29 PM CDT): -Heart rate in the ER AFib 100s but currently rate controlled on my exam irregular heart rhythm but not fast. Continue on sotalol and Lopressor. Holding her anticoagulation in case surgical intervention at the rim recommendations of her neurosurgeon Dr. Renae. Elevated brain natriuretic peptide (BNP) level 1 Assessment & Plan (06/23/2025 8:54 AM CDT): Cardiology was consulted due to abnormal ECHO. 2D ECHO on 06/08 showed mild LV dysfunction with EF 45-50%, grade 2 diastolic dysfunction, moderate RV dysfunction. Nuclear stress test on 06/12 negative. Assessment & Plan (06/22/2025 12:43 PM CDT): Cardiology was consulted due to abnormal ECHO. 2D ECHO on 06/08 showed mild LV dysfunction with EF 45-50%, grade 2 diastolic dysfunction, moderate RV dysfunction. Nuclear stress test on 06/12 negative. Assessment & Plan (06/21/2025 9:26 AM CDT): Cardiology was consulted due to abnormal ECHO. 2D ECHO on 06/08 showed mild LV dysfunction with EF 45-50%, grade 2 diastolic dysfunction, moderate RV dysfunction. Nuclear stress test on 06/12 negative. Assessment & Plan (06/20/2025 2:59 PM CDT): Cardiology was consulted due to abnormal ECHO. 2D ECHO on 06/08 showed mild LV dysfunction with EF 45-50%, grade 2 diastolic dysfunction, moderate RV dysfunction. Nuclear stress test on 06/12 negative. Assessment & Plan (06/12/2025 4:03 PM CDT): -ProBNP 1,101 and chest x-ray showing mild pulmonary vascular congestion on admission. Heart size is normal. Last echo on file was in 2013 and at that time was 60 - 65%. Now down to 40-45% She does have a history of bypass as well as mitral valvuloplasty. I have asked Cardiology to see patient and appreciate their assistance, nuclear medicine stress test has been ordered by Cardiology and is pending -CAD s/p CABG x 2 w/ stents. No chest pain, chronic shortness of breath unchanged from baseline. Troponin 23-21. EKG afib 111 BPM, heart rate has since come down. -Continue on Lopressor and pravastatin. She is on Repatha outpatient. She is not on aspirin since she is on Xarelto which is on hold for now. - May need to resume home diuretic at some point but hesitant to do so given the hypercalcemia degree Assessment & Plan (06/11/2025 10:30 AM CDT): -ProBNP 1,101 and chest x-ray showing mild pulmonary vascular congestion on admission. Heart size is normal. Last echo on file was in 2013 and at that time was 60 - 65%. Now down to 40-45% She does have a history of bypass as well as mitral valvuloplasty. I have asked Cardiology to see patient and appreciate their assistance, nuclear medicine stress test has been ordered by Cardiology and is pending -CAD s/p CABG x 2 w/ stents. No chest pain, chronic shortness of breath unchanged from baseline. Troponin 23-21. EKG afib 111 BPM, heart rate has since come down. -Continue on Lopressor and pravastatin. She is on Repatha outpatient. She is not on aspirin since she is on Xarelto which is on hold for now. -Holding Lasix for the moment since she had decline in kidney function and due to hypercalcemia but elevated proBNP and has mild pulmonary vascular congestion on chest x-ray without a history of heart failure prior to admission. May need to resume home diuretic at some point but hesitant to do so given the hypercalcemia degree Assessment & Plan (06/10/2025 1:21 PM CDT): -ProBNP 1,101 and chest x-ray showing mild pulmonary vascular congestion on admission. Heart size is normal. Last echo on file was in 2013 and at that time was 60 - 65%. Now down to 40-45% She does have a history of bypass as well as mitral valvuloplasty. I have asked Cardiology to see patient today in consultation in regard to decrease in EF and global hypokinesia -CAD s/p CABG x 2 w/ stents. No chest pain, chronic shortness of breath unchanged from baseline. Troponin 23-21. EKG afib 111 BPM, heart rate has since come down. -Continue on Lopressor and pravastatin. She is on Repatha outpatient. She is not on aspirin since she is on Xarelto which is on hold for now. -Holding Lasix for the moment since she had decline in kidney function and due to hypercalcemia but elevated proBNP and has mild pulmonary vascular congestion on chest x-ray without a history of heart failure prior to admission. Will need to resume home diuretic at some point but hesitant to do so given the hypercalcemia degree Assessment & Plan (06/09/2025 4:16 PM CDT): -ProBNP 1,101 and chest x-ray showing mild pulmonary vascular congestion on admission. Heart size is normal. Last echo on file was in 2013 and at that time was 60 - 65%. Now down to 40-45% She does have a history of bypass as well as mitral valvuloplasty. -CAD s/p CABG x 2 w/ stents. No chest pain, chronic shortness of breath unchanged from baseline. Troponin 23-21. EKG afib 111 BPM, heart rate has since come down. -Continue on Lopressor and pravastatin. She is on Repatha outpatient. She is not on aspirin since she is on Xarelto which is on hold for now. -Holding Lasix for the moment since she has decline in kidney function and due to hypercalcemia but elevated proBNP and has mild pulmonary vascular congestion on chest x-ray without a history of heart failure prior to admission. Will need to resume home diuretic soon most likely Assessment & Plan (06/07/2025 6:29 PM CDT): -ProBNP 1,101 and chest x-ray showing mild pulmonary vascular congestion. Heart size is normal. Last echo on file was in 2013. She does have a history of bypass as well as mitral valvuloplasty. On exam she does not appear terribly overloaded, and definitely does not appear dehydrated. Creatinine however is elevated as well as her calcium and alk-phos unclear why. She does have some lower extremity trace pitting edema usually wears [place] hose but the not on today. Will hold off on her home dose of Lasix and obtain echocardiogram for better evaluation. Restless legs syndrome (RLS) 06/07/2025 Assessment & Plan (07/03/2025 7:24 AM DAIRY TESTER): - Pramipexole 0.5 mg PO nightly Assessment & Plan (07/02/2025 9:16 AM DAIRY TESTER): - Pramipexole 0.5 mg PO nightly Assessment & Plan (07/01/2025 7:17 AM CDT): - Pramipexole 0.5 mg PO nightly Assessment & Plan (06/30/2025 5:09 PM CDT): - Pramipexole 0.5 mg PO nightly Assessment & Plan (06/23/2025 8:54 AM CDT): Continue mirapex. Assessment & Plan (06/22/2025 12:43 PM CDT): Continue mirapex. Assessment & Plan (06/21/2025 3:44 PM CDT): Continue mirapex. Assessment & Plan (06/20/2025 2:59 PM CDT): Continue mirapex. Assessment & Plan (06/12/2025 4:03 PM CDT): -Continue Mirapex Assessment & Plan (06/11/2025 7:38 AM CDT): -Continue Mirapex Assessment & Plan (06/10/2025 1:21 PM CDT): -Continue Mirapex Assessment & Plan (06/09/2025 12:23 PM CDT): -Continue Mirapex Assessment & Plan (06/07/2025 6:29 PM CDT): -Continue Mirapex Leukocytosis 06/07/2025 Assessment & Plan (06/22/2025 12:43 PM CDT): Resolved. Assessment & Plan (06/21/2025 9:26 AM CDT): Resolved. Assessment & Plan (06/20/2025 2:59 PM CDT): Resolved. Assessment & Plan (06/12/2025 4:03 PM CDT): Resolved Assessment & Plan (06/11/2025 7:38 AM CDT): Resolved Assessment & Plan (06/10/2025 1:21 PM CDT): Resolved Assessment & Plan (06/09/2025 12:23 PM CDT): Resolved Assessment & Plan (06/07/2025 6:29 PM CDT): -WBC of 11 however no fevers or chills, chest x-ray noted possible upper lobe opacities I checked a procalcitonin level and it was normal S1 likely but serial pneumonia as cause. Urinalysis to son appear infected. No rashes or sores. She does have chronic diarrhea that is unchanged. No recent steroids. -A.m. CBC Abnormal chest CT 06/07/2025 Cervical spondylosis 05/08/2025 Assessment & Plan (05/09/2025 4:04 PM CDT): MRI shows C3-C5 severe canal stenosis Multilevel thoracic disc degenerative disease NSGY consulted PT/OT consulted Assessment & Plan (05/08/2025 11:24 PM CDT): MRI shows C3-C5 severe canal stenosis Multilevel thoracic disc degenerative disease Consult to neurosurgery for further management Cervical stenosis of spinal canal 05/08/2025 Assessment & Plan (07/03/2025 9:15 AM DAIRY TESTER): # s/p C2-6 laminectomy - pain management: Acetaminophen, Oxycodone, Morphine, Robaxin PRN - Patient has been using only acetaminophen. Is not interested in other options. Assessment & Plan (07/02/2025 9:16 AM DAIRY TESTER): # s/p C2-6 laminectomy - pain management: Acetaminophen, Oxycodone, Morphine, Robaxin PRN - Patient has been using only acetaminophen. Assessment & Plan (07/01/2025 7:17 AM CDT): # s/p C2-6 laminectomy - pain management: Acetaminophen, Oxycodone, Morphine, Robaxin PRN Assessment & Plan (06/30/2025 5:09 PM CDT): # s/p C2-6 laminectomy - pain management: Acetaminophen, Oxycodone, Morphine, Robaxin PRN Assessment & Plan (06/23/2025 6:32 PM CDT): Neurosurgery on board. Cervical spine surgery planned for Thursday. Will need pulmonology and cardiac clearance. Assessment & Plan (06/22/2025 12:43 PM CDT): Neurosurgery on board. Cervical spine surgery planned for Thursday. Will need pulmonology and cardiac clearance. Tentatively cleared at this point. Assessment & Plan (06/21/2025 3:44 PM CDT): Neurosurgery on board. Cervical spine surgery planned for Thursday. Will need pulmonology and cardiac clearance. Assessment & Plan (06/20/2025 2:59 PM CDT): Neurosurgery on board. Trying to figure out optimal timing of cervical surgery since patient on high dose steroids which could impair wound healing. Assessment & Plan (06/12/2025 4:03 PM CDT): Disc. Evaluated by neurosurgeon, he did not feel that her current symptoms and abnormal labs were the issue although he was going to obtain the cervical spine MRI obtained at [facility] this summer for further evaluation. Told he would be back Thursday (today). He asked that we hold her anticoagulation in case intervention needed which I have still been doing. -PT and OT evaluation -Fall precautions Assessment & Plan (06/11/2025 10:29 AM CDT): Disc. Evaluated by neurosurgeon, he did not feel that her current symptoms and abnormal labs were the issue although he was going to obtain the cervical spine MRI obtained at [facility] this summer for further evaluation. Told he would be back Thursday. He asked that we hold her anticoagulation in case intervention needed. -PT and OT evaluation -Fall precautions Assessment & Plan (06/10/2025 1:21 PM CDT): Disc. Evaluated by neurosurgeo, to not feel that her current symptoms and abnormal labs were the issue although he was going to obtain the cervical spine MRI obtained at [facility] this summer for further evaluation. He asked that we hold her anticoagulation, but can not get VTE Lovenox while here in case procedure surgical intervention. -PT and OT evaluation -Fall precautions Assessment & Plan (06/09/2025 4:16 PM CDT): Disc. Evaluated by neurosurgeo, to not feel that her current symptoms and abnormal labs were the issue although he was going to obtain the cervical spine MRI obtained at [facility] this summer for further evaluation. He asked that we hold her anticoagulation, but can not get VTE Lovenox while here in case procedure surgical intervention. -PT and OT evaluation -Fall precautions Assessment & Plan (06/07/2025 6:29 PM CDT): -Ongoing chronic and progressive arm and leg weakness. Explains that her right leg gets numb around her knee and then her leg will give out resulting in falls. She also has weakness to her upper extremities and cannot steel pickler her pills her has to give them to her and will drop things frequently, dropping fork when I was seeing her. She does ambulate with a walker at home and has physical therapy twice a week. 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 Declined surgical intervention last month wanted to work with physical therapy but since then progressive decline. Evaluated by neurosurgeon today, to not feel that her current symptoms and abnormal labs were the issue although he was going to obtain the cervical spine MRI obtained at [facility] this summer for further evaluation. He asked that we hold her anticoagulation, but can not get VTE Lovenox while here in case procedure surgical intervention. -PT and OT evaluation -Fall precautions -Evaluation of her decline in kidney function, hypercalcemia, and elevated alk- phos. Workup in process as noted below. Assessment & Plan (05/09/2025 4:04 PM CDT): MRI shows C3-C5 severe canal stenosis Multilevel thoracic disc degenerative disease NSGY consulted PT/OT consulted Assessment & Plan (05/08/2025 11:24 PM CDT): MRI shows C3-C5 severe canal stenosis Multilevel thoracic disc degenerative disease Consult to neurosurgery for further management Type 2 diabetes mellitus, wi th long-term current use of insulin 05/08/2025 Assessment & Plan (05/09/2025 2:52 PM CDT): SSI with hypoglycemia protocol Diabetic diet Assessment & Plan (05/08/2025 11:24 PM CDT): SSI with hypoglycemia protocol Diabetic diet Coronary artery disease invo lving autologous artery coronary bypass graft with angina pectoris 05/08/2025 Assessment & Plan (06/23/2025 8:54 AM CDT): Cardiology was consulted due to abnormal ECHO. 2D ECHO on 06/08 showed mild LV dysfunction with EF 45-50%, grade 2 diastolic dysfunction, moderate RV dysfunction. Nuclear stress test on 06/12 negative. Assessment & Plan (06/22/2025 12:43 PM CDT): Cardiology was consulted due to abnormal ECHO. 2D ECHO on 06/08 showed mild LV dysfunction with EF 45-50%, grade 2 diastolic dysfunction, moderate RV dysfunction. Nuclear stress test on 06/12 negative. Assessment & Plan (06/21/2025 9:26 AM CDT): Cardiology was consulted due to abnormal ECHO. 2D ECHO on 06/08 showed mild LV dysfunction with EF 45-50%, grade 2 diastolic dysfunction, moderate RV dysfunction. Nuclear stress test on 06/12 negative. Assessment & Plan (06/20/2025 2:59 PM CDT): Cardiology was consulted due to abnormal ECHO. 2D ECHO on 06/08 showed mild LV dysfunction with EF 45-50%, grade 2 diastolic dysfunction, moderate RV dysfunction. Nuclear stress test on 06/12 negative. Assessment & Plan (06/12/2025 4:03 PM CDT): -ProBNP 1,101 and chest x-ray showing mild pulmonary vascular congestion on admission. Heart size is normal. Last echo on file was in 2013 and at that time was 60 - 65%. Now down to 40-45% She does have a history of bypass as well as mitral valvuloplasty. I have asked Cardiology to see patient and appreciate their assistance, nuclear medicine stress test has been ordered by Cardiology and is pending -CAD s/p CABG x 2 w/ stents. No chest pain, chronic shortness of breath unchanged from baseline. Troponin 23-21. EKG afib 111 BPM, heart rate has since come down. -Continue on Lopressor and pravastatin. She is on Repatha outpatient. She is not on aspirin since she is on Xarelto which is on hold for now. - May need to resume home diuretic at some point but hesitant to do so given the hypercalcemia degree Assessment & Plan (06/11/2025 10:30 AM CDT): -ProBNP 1,101 and chest x-ray showing mild pulmonary vascular congestion on admission. Heart size is normal. Last echo on file was in 2013 and at that time was 60 - 65%. Now down to 40-45% She does have a history of bypass as well as mitral valvuloplasty. I have asked Cardiology to see patient and appreciate their assistance, nuclear medicine stress test has been ordered by Cardiology and is pending -CAD s/p CABG x 2 w/ stents. No chest pain, chronic shortness of breath unchanged from baseline. Troponin 23-21. EKG afib 111 BPM, heart rate has since come down. -Continue on Lopressor and pravastatin. She is on Repatha outpatient. She is not on aspirin since she is on Xarelto which is on hold for now. -Holding Lasix for the moment since she had decline in kidney function and due to hypercalcemia but elevated proBNP and has mild pulmonary vascular congestion on chest x-ray without a history of heart failure prior to admission. May need to resume home diuretic at some point but hesitant to do so given the hypercalcemia degree Assessment & Plan (06/10/2025 1:21 PM CDT): -ProBNP 1,101 and chest x-ray showing mild pulmonary vascular congestion on admission. Heart size is normal. Last echo on file was in 2013 and at that time was 60 - 65%. Now down to 40-45% She does have a history of bypass as well as mitral valvuloplasty. I have asked Cardiology to see patient today in consultation in regard to decrease in EF and global hypokinesia -CAD s/p CABG x 2 w/ stents. No chest pain, chronic shortness of breath unchanged from baseline. Troponin 23-21. EKG afib 111 BPM, heart rate has since come down. -Continue on Lopressor and pravastatin. She is on Repatha outpatient. She is not on aspirin since she is on Xarelto which is on hold for now. -Holding Lasix for the moment since she had decline in kidney function and due to hypercalcemia but elevated proBNP and has mild pulmonary vascular congestion on chest x-ray without a history of heart failure prior to admission. Will need to resume home diuretic at some point but hesitant to do so given the hypercalcemia degree Assessment & Plan (06/09/2025 4:16 PM CDT): -ProBNP 1,101 and chest x-ray showing mild pulmonary vascular congestion on admission. Heart size is normal. Last echo on file was in 2013 and at that time was 60 - 65%. Now down to 40-45% She does have a history of bypass as well as mitral valvuloplasty. -CAD s/p CABG x 2 w/ stents. No chest pain, chronic shortness of breath unchanged from baseline. Troponin 23-21. EKG afib 111 BPM, heart rate has since come down. -Continue on Lopressor and pravastatin. She is on Repatha outpatient. She is not on aspirin since she is on Xarelto which is on hold for now. -Holding Lasix for the moment since she has decline in kidney function and due to hypercalcemia but elevated proBNP and has mild pulmonary vascular congestion on chest x-ray without a history of heart failure prior to admission. Will need to resume home diuretic soon most likely Assessment & Plan (06/07/2025 6:29 PM CDT): -CAD s/p CABG x 2 w/ stents. No chest pain, chronic shortness of breath unchanged from baseline. Troponin 23-21. EKG afib 111 BPM, heart rate has since come down. -Continue on Lopressor and pravastatin. She is on Repatha outpatient. She is not on aspirin since she is on Xarelto which is on hold for now. -Holding Lasix for the moment since she has decline in kidney function but elevated proBNP and has mild pulmonary vascular congestion on chest x-ray without a history of heart failure. Obtaining echocardiogram. Assessment & Plan (05/09/2025 2:52 PM CDT): Continue sotalol statin and lasix Hold xarelto for possible surgery intervention Assessment & Plan (05/08/2025 11:24 PM CDT): Continue sotalol statin and lasix Hold xarelto for possible surgery intervention Rheumatoid arthritis 05/08/2025 Assessment & Plan (07/03/2025 7:24 AM DAIRY TESTER): - leflunomide held per pulm- c/f pulmonary toxicity Assessment & Plan (07/02/2025 9:16 AM DAIRY TESTER): - leflunomide held per pulm- c/f pulmonary toxicity Assessment & Plan (07/01/2025 7:17 AM CDT): - leflunomide held per pulm- c/f pulmonary toxicity Assessment & Plan (06/30/2025 5:34 PM CDT): - leflunomide held per pulm- c/f pulmonary toxicity Assessment & Plan (06/23/2025 8:54 AM CDT): Hold arava per pulmonology as can cause pneumonitis. Assessment & Plan (06/22/2025 12:43 PM CDT): Hold arava per pulmonology as can cause pneumonitis. Assessment & Plan (06/21/2025 9:26 AM CDT): Hold arava per pulmonology as can cause pneumonitis. Assessment & Plan (06/20/2025 2:59 PM CDT): Hold arava per pulmonology as can cause pneumonitis. Assessment & Plan (06/12/2025 4:03 PM CDT): -She follows with Dr. Alice Gordon on Arava Assessment & Plan (06/11/2025 7:38 AM CDT): -She follows with Dr. Alice Gordon on Arava Assessment & Plan (06/10/2025 1:21 PM CDT): -She follows with Dr. Jenkins -Continue on Arava Assessment & Plan (06/09/2025 12:23 PM CDT): -She follows with Dr. Jenkins -Continue on Arava Assessment & Plan (06/07/2025 6:29 PM CDT): -She follows with Dr. Jenkins and actually had an appointment today but came here instead. He he also noted the elevated alk-phos and wanted a liver ultrasound. -Continue on Arava Assessment & Plan (05/09/2025 2:52 PM CDT): leflunomide Assessment & Plan (05/08/2025 11:24 PM CDT): leflunomide Dyslipidemia 05/08/2025 Assessment & Plan (06/23/2025 8:54 AM CDT): Cardiology was consulted due to abnormal ECHO. 2D ECHO on 06/08 showed mild LV dysfunction with EF 45-50%, grade 2 diastolic dysfunction, moderate RV dysfunction. Nuclear stress test on 06/12 negative. Assessment & Plan (06/22/2025 12:43 PM CDT): Cardiology was consulted due to abnormal ECHO. 2D ECHO on 06/08 showed mild LV dysfunction with EF 45-50%, grade 2 diastolic dysfunction, moderate RV dysfunction. Nuclear stress test on 06/12 negative. Assessment & Plan (06/21/2025 9:26 AM CDT): Cardiology was consulted due to abnormal ECHO. 2D ECHO on 06/08 showed mild LV dysfunction with EF 45-50%, grade 2 diastolic dysfunction, moderate RV dysfunction. Nuclear stress test on 06/12 negative. Assessment & Plan (06/20/2025 2:59 PM CDT): Cardiology was consulted due to abnormal ECHO. 2D ECHO on 06/08 showed mild LV dysfunction with EF 45-50%, grade 2 diastolic dysfunction, moderate RV dysfunction. Nuclear stress test on 06/12 negative. Assessment & Plan (06/12/2025 4:03 PM CDT): -ProBNP 1,101 and chest x-ray showing mild pulmonary vascular congestion on admission. Heart size is normal. Last echo on file was in 2013 and at that time was 60 - 65%. Now down to 40-45% She does have a history of bypass as well as mitral valvuloplasty. I have asked Cardiology to see patient and appreciate their assistance, nuclear medicine stress test has been ordered by Cardiology and is pending -CAD s/p CABG x 2 w/ stents. No chest pain, chronic shortness of breath unchanged from baseline. Troponin 23-21. EKG afib 111 BPM, heart rate has since come down. -Continue on Lopressor and pravastatin. She is on Repatha outpatient. She is not on aspirin since she is on Xarelto which is on hold for now. - May need to resume home diuretic at some point but hesitant to do so given the hypercalcemia degree Assessment & Plan (06/11/2025 10:30 AM CDT): -ProBNP 1,101 and chest x-ray showing mild pulmonary vascular congestion on admission. Heart size is normal. Last echo on file was in 2013 and at that time was 60 - 65%. Now down to 40-45% She does have a history of bypass as well as mitral valvuloplasty. I have asked Cardiology to see patient and appreciate their assistance, nuclear medicine stress test has been ordered by Cardiology and is pending -CAD s/p CABG x 2 w/ stents. No chest pain, chronic shortness of breath unchanged from baseline. Troponin 23-21. EKG afib 111 BPM, heart rate has since come down. -Continue on Lopressor and pravastatin. She is on Repatha outpatient. She is not on aspirin since she is on Xarelto which is on hold for now. -Holding Lasix for the moment since she had decline in kidney function and due to hypercalcemia but elevated proBNP and has mild pulmonary vascular congestion on chest x-ray without a history of heart failure prior to admission. May need to resume home diuretic at some point but hesitant to do so given the hypercalcemia degree Assessment & Plan (06/10/2025 1:21 PM CDT): -ProBNP 1,101 and chest x-ray showing mild pulmonary vascular congestion on admission. Heart size is normal. Last echo on file was in 2013 and at that time was 60 - 65%. Now down to 40-45% She does have a history of bypass as well as mitral valvuloplasty. I have asked Cardiology to see patient today in consultation in regard to decrease in EF and global hypokinesia -CAD s/p CABG x 2 w/ stents. No chest pain, chronic shortness of breath unchanged from baseline. Troponin 23-21. EKG afib 111 BPM, heart rate has since come down. -Continue on Lopressor and pravastatin. She is on Repatha outpatient. She is not on aspirin since she is on Xarelto which is on hold for now. -Holding Lasix for the moment since she had decline in kidney function and due to hypercalcemia but elevated proBNP and has mild pulmonary vascular congestion on chest x-ray without a history of heart failure prior to admission. Will need to resume home diuretic at some point but hesitant to do so given the hypercalcemia degree Assessment & Plan (06/09/2025 4:16 PM CDT): -ProBNP 1,101 and chest x-ray showing mild pulmonary vascular congestion on admission. Heart size is normal. Last echo on file was in 2013 and at that time was 60 - 65%. Now down to 40-45% She does have a history of bypass as well as mitral valvuloplasty. -CAD s/p CABG x 2 w/ stents. No chest pain, chronic shortness of breath unchanged from baseline. Troponin 23-21. EKG afib 111 BPM, heart rate has since come down. -Continue on Lopressor and pravastatin. She is on Repatha outpatient. She is not on aspirin since she is on Xarelto which is on hold for now. -Holding Lasix for the moment since she has decline in kidney function and due to hypercalcemia but elevated proBNP and has mild pulmonary vascular congestion on chest x-ray without a history of heart failure prior to admission. Will need to resume home diuretic soon most likely Assessment & Plan (06/07/2025 6:29 PM CDT): -CAD s/p CABG x 2 w/ stents. No chest pain, chronic shortness of breath unchanged from baseline. Troponin 23-21. EKG afib 111 BPM, heart rate has since come down. -Continue on Lopressor and pravastatin. She is on Repatha outpatient. She is not on aspirin since she is on Xarelto which is on hold for now. -Holding Lasix for the moment since she has decline in kidney function but elevated proBNP and has mild pulmonary vascular congestion on chest x-ray without a history of heart failure. Obtaining echocardiogram. Assessment & Plan (05/09/2025 2:52 PM CDT): Continue statin Assessment & Plan (05/08/2025 11:24 PM CDT): Continue statin COPD (chronic obstructive pulmonary disease) 03/2025 Assessment & Plan (07/03/2025 7:24 AM DAIRY TESTER): - On 2 L baseline. Currently on 3L - Prednisone 10 mg q day - On brovena (Arformoterol) Assessment & Plan (07/02/2025 9:16 AM DAIRY TESTER): - On 2 L baseline. Currently on 3L - Prednisone 10 mg q day - On brovena (Arformoterol) Assessment & Plan (07/01/2025 10:31 AM CDT): - On 2 L baseline - Prednisone 10 mg q day - On brovena (Arformoterol) Assessment & Plan (06/30/2025 5:34 PM CDT): - On 2 L baseline - Prednisone 10 mg q day - On brovena (Arformoterol) Assessment & Plan (06/23/2025 8:54 AM CDT): On chronic 2 L nasal cannula at home reports OA short of breath. Continue home inhalers. Assessment & Plan (06/22/2025 12:43 PM CDT): On chronic 2 L nasal cannula at home reports OA short of breath. Continue home inhalers. Assessment & Plan (06/21/2025 9:26 AM CDT): On chronic 2 L nasal cannula at home reports OA short of breath. Continue home inhalers. Assessment & Plan (06/20/2025 2:59 PM CDT): On chronic 2 L nasal cannula at home reports OA short of breath. Continue home inhalers. Assessment & Plan (06/12/2025 4:03 PM CDT): -Patient a nonsmoker but had secondhand smoke exposure earlier on in life. She is on chronic 2 L nasal cannula at home reports OA short of breath. Nonproductive cough. She setting okay on her current O2 2 L. -Continue on Brovana inhaler - CT results with numerous nodules, concern for sarcoidosis, discussed with pulmonology today who will see patient, likely need bronchoscopy Assessment & Plan (06/11/2025 10:29 AM CDT): -Patient a nonsmoker but had secondhand smoke exposure earlier on in life. She is on chronic 2 L nasal cannula at home reports OA short of breath. Nonproductive cough. She setting okay on her current O2 2 L. -Continue on Brovana inhaler - CT results with numerous nodules, concern for sarcoidosis, discussed with pulmonology today who will see patient, likely need bronchoscopy Assessment & Plan (06/10/2025 1:21 PM CDT): -Patient a nonsmoker but had secondhand smoke exposure earlier on in life. She is on chronic 2 L nasal cannula at home reports OA short of breath. Nonproductive cough. She setting okay on her current O2 2 L. -Continue on Brovana inhaler Assessment & Plan (06/09/2025 12:23 PM CDT): -Patient a nonsmoker but had secondhand smoke exposure earlier on in life. She is on chronic 2 L nasal cannula at home reports OA short of breath. Nonproductive cough. She setting okay on her current O2 2 L. -Continue on Brovana inhaler Assessment & Plan (06/07/2025 6:29 PM CDT): -Patient a nonsmoker but had secondhand smoke exposure earlier on in life. She is on chronic 2 L nasal cannula at home reports OA short of breath. Nonproductive cough. She setting okay on her current O2 2 L. -Continue on Brovana inhaler Assessment & Plan (05/09/2025 2:52 PM CDT): Nebulizer Brovana Proventil HFA Assessment & Plan (05/08/2025 11:24 PM CDT): Brivana Proventil HFa Functional diarrhea 05/23/2021 Anal fissure 02/07/2021 Resolved Problems Problem Noted Date Diagnosed Date Resolved Date Elevated serum creatinine 06/07/2025 Assessment & Plan (06/12/2025 4:03 PM CDT): Improved with fluids , did not meet ESMER criteria Assessment & Plan (06/11/2025 7:38 AM CDT): Improved with fluids , did not meet ESMER criteria Assessment & Plan (06/10/2025 1:21 PM CDT): Improved with fluids , did not meet ESMER criteria Assessment & Plan (06/09/2025 4:16 PM CDT): Improved with fluids , did not meet ESMER criteria Assessment & Plan (06/07/2025 6:29 PM CDT): -Not technically acute kidney injury but definite decline in kidney function from prior with creatinine of 1.12 and GFR 52. She did receive normal saline 500 mL bolus in the ER. Her calcium is also elevated. Her proBNP elevated with mild pulmonary vascular congestion on chest x-ray. -Hold off on further IV fluids -Hold Lasix and where obtaining echocardiogram -a.m. BMP Hypokalemia 05/08/2025 06/21/2025 Assessment & Plan (06/20/2025 2:59 PM CDT): Replete and monitor. Assessment & Plan (05/09/2025 2:52 PM CDT): Potassium chloride ER 40 mg daily Monitor labs Assessment & Plan (05/08/2025 11:24 PM CDT): Potassium chloride ER 20 mg Monitor labs Encounters Date Type Department Care Team Description 07/04/2025 Home Care Visit [address] [address] [address] [place] [id number] Ernestina Hsu, PT PT VIRTUAL NON OASIS DISCHARGE 06/26/2025 2:31 PM CDT Anesthesia Event [facility] Operating Room [address] [place] [phone] Jhonathan Gaytan MD Small, Jeffrey Barrett, MD 06/26/2025 12:30 PM CDT - 06/26/2025 5:30 PM CDT Surgery [facility] Operating Room [address] [place] [phone] Sadia Renae MD C2-6 Decompressive Laminectomy, Posterior Spinal Fusion with Instrumentation, Globus Navigation 06/19/2025 10:06 AM CDT Anesthesia Event [facility] - Imaging [address] [place] [phone] Baljinder Morelos MD Artinger, Leslie Anne, CRNA 06/12/2025 1:07 PM CDT Anesthesia Event [facility] Interventional Pulmonology [address] [place] [phone] Atul Nazario MD McCormack, Maribeth J., CRNA 06/12/2025 12:30 PM CDT - 06/12/2025 1:19 PM CDT Surgery [facility] Interventional Pulmonology [address] [place] [phone] Gordo Corrales MD BRONCHOSCOPY WITH TRANSBRONCHIAL BIOPSY 06/11/2025 Home Care Visit [address] [place] [address] Ernestina Hsu, PT PT OASIS TRANSFER W/OUT DC 06/07/2025 9:11 AM CDT - 07/04/2025 3:37 PM DAIRY TESTER Hospital Encounter [facility] [address] [place] [address] Abdirahman Childs, DO Aguilar, MD Carlos Gastelum, MD Nilo Mccoy, Joe Kelley, DO Byrd, Nuvia Wetzel, DO Mckeon, MD Winston Basilio, Aly Nazario, MD Macias, Jorge Jain, MD Johnston, MD Marvin Andrade, Shawn Farnsworth, MD Kline, MD Joel Mcdaniel, La Blue MD Postprocedural hypotension (Primary Dx); Generalized weakness; Chronic obstructive pulmonary disease, unspecified COPD type (HCC); Chronic neck pain; 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 06/06/2025 10:00 AM CDT Home Care Visit [address] [place] [address] Rachel Cardozo, OT OT REASSESSMENT 06/01/2025 3:00 PM CDT Home Care Visit [address] [place] [address] Sarah Henning, PT PT HOME VISIT 06/01/2025 10:30 AM CDT Home Care Visit [address] [place] [address] Rachel Cardozo, OT OT HOME VISIT 05/30/2025 3:30 PM CDT Home Care Visit [address] [place] [address] Sarah Henning, PT PT HOME VISIT 05/30/2025 Home Care Visit [address] [place] [address] Rachel Cardozo, OT TELEPHONE ENCOUNTER 05/25/2025 2:00 PM CDT Home Care Visit [address] [place] [address] Brenton Fonseca, PT PT HOME VISIT 05/25/2025 12:30 PM CDT Home Care Visit [address] [place] [address] Rachel Cardozo, OT OT HOME VISIT 05/23/2025 4:00 PM CDT Home Care Visit [address] [place] [address] Brenton Fonseca, PT PT HOME VISIT 05/23/2025 12:30 PM CDT Home Care Visit [address] [place] [address] Rachel Cardozo, OT OT HOME VISIT 05/19/2025 1:30 PM CDT Home Care Visit [address] [place] [address] Sarah Henning, PT PT HOME VISIT 05/16/2025 11:00 AM CDT Home Care Visit [address] [place] [address] Rachel Cardozo, OT OT INITIAL EVALUATION 05/16/2025 Home Care Visit [address] [place] [address] Rachel Cardozo, OT TELEPHONE ENCOUNTER 05/15/2025 Home Care Visit [address] [place] [address] Marika Koch, RN NURSE MED RECON FOR THERAPY 05/15/2025 Plan of Care Documentation [address] [place] [address] 05/12/2025 11:00 AM CDT Home Care Visit [address] [place] [address] Brenton Fonseca, PT PT OASIS START OF CARE 05/12/2025 Home Care Visit [address] [place] [address] Brenton Fonseca, PT TELEPHONE ENCOUNTER 05/11/2025 Telephone [facility] Home Care [facility] [address] [place] [address] Sharyn Cotton 05/08/2025 8:21 PM CDT - 05/10/2025 3:49 PM CDT Hospital Encounter [address] [phone] Fifi Arrington MD Shimotani, Dorian Genki, DO Rajab, Rawan A., MD Cervical spondylosis [M47.812] (Primary Dx) Discharge Disposition: Discharge to home, home health skilled care 05/08/2025 Orders Only [facility] Hospitalists [address] [place] [phone] Fifi Arrington MD from Last 3 Months Surgical History [...] (chronic obstructive pulmonary disease) Rheumatoid arthritis (HCC) Hypokalemia 05/08/2025 Family History Medical History Relation Name Comments [...] week 06/07/2025 How often do you attend [facility] or [facility] services? Never 06/07/2025 Do you belong to any clubs o r organizations such as yarsanism groups, unions, fraternal or athletic groups, or [...] time in the past 12 [facility], were you homeless or living in a fpc (including now)? No 06/07/[address] [facility] Utilities Answer Date Recorded In the past [...] on file Legal Sex Female 2:00 AM DAIRY TESTER Gender Identity Not on file Sexual Orientation Not on file Last Filed Vital Signs Vital Sign Reading Time Taken Comments Blood Pressure 111/66 07/04/2025 8:31 AM DAIRY TESTER Pulse 65 07/04/2025 8:31 AM DAIRY TESTER Temperature 36.4 C (97.6 F) 07/04/2025 8:31 AM DAIRY TESTER Respiratory Rate 16 07/04/2025 8:31 AM DAIRY TESTER Oxygen Saturation 98% 07/04/2025 8:31 AM DAIRY TESTER Inhaled Oxygen Concentration - - Weight 78.7 kg (173 lb 8 oz) 06/28/2025 3:00 AM CDT Height 154.9 cm (5' 0.98) 06/28/2025 3:00 AM CD T Body Mass Index 32.8 06/28/2025 3:00 AM CDT Plan of Treatment Health Maintenance Due Date Last Done Comments Albumin Creatinine Ratio, Urine 1952 Breast Cancer Screening-Mammogram 1952 Colon Cancer Screening-Colonoscopy 1950 Depression Screening 1950 Hepatitis C Screening 1952 Osteoporosis Screening-Bone Density Scan 1952 Dilated Eye Exam 1952 Foot Exam 1952 Hepatitis B Screening 02/12/1970 Zoster Vaccine (2 of 3) 05/18/2013 03/23/2013 Well Visit 65+ 02/12/2017 Lipid Panel 04/10/2017 04/10/2016, 02/25/2014 Covid-19 Vaccine (2024-2 6 season) 2025 07/03/2021, 12/20/2020, 11/29/2020 Influenza Vaccine (#1) 2025 , 06/08/2018, 06/22/2017, Additional history exists Hemoglobin A1C 12/07/2025 06/08/2025 Fall Risk Assessment 07/04/2026 07/04/2025 eGFR 07/04/2026 07/04/2025, 11/10/2024, 07/02/2025, Additional history exists DTaP/Tdap/Td Vaccine (2 - Td or Tdap) 01/16/2035 01/16/2025 Pneumococcal vaccine 65+ Completed 08/20/2021, 08/01 Medical Devices Implanted Type Area Stars Analytical Lead Device Identifier Shelf Expiration Date Model / Serial / Lot Musculoskeletal Transplant Graft Bone Fiber Cortical Kore Fiber 2.5cc Moldable [id number] - [id number] - [id number] Implanted:Qty: 1 on 06/26/2025 by Sadia Renae MD at [facility] N/A: Spine Cervical Musculoskeletal Transplant 03/31/2027 [id number] / [id number] / Musculoskeletal Transplant Graft Bone Fiber Cortical Kore Fiber 2.5cc Moldable [id number] - [id number] - [id number] Implanted:Qty: 1 on 06/26/2025 by Sadia Renae MD at [facility] N/A: Spine Cervical Musculoskeletal Transplant 03/11/2027 [id number] / [id number] / [employer] End Cap Spinal Quartex 3.5-4.0mm Titanium 1149.0001 - [id number] Implanted:Qty: 8 on 06/26/2025 by Sadia Renae MD at [facility] N/A: Spine Cervical [employer] 1149.000 1 / / [employer] Screw Spinal Posterior Cervical Polyaxial Self Drilling Threaded Solid Quartex 3.5x14mm Titanium 1149.3514 - [id number] Implanted:Qty: 4 on 06/26/2025 by Sadia Renae MD at [facility] N/A: Spine Cervical [employer] 1149.351 4 / / [employer] Screw Spinal Posterior Cervical Polyaxial Self Drilling Threaded Solid Quartex 3.5x20mm Titanium 1149.3520 - [id number] Implanted:Qty: 2 on 06/26/2025 by Sadia Renae MD at [facility] N/A: Spine Cervical [employer] 1149.352 0 / / [employer] Catalino Spinal Occipito Cervico Thoracic Prebent Quartex 4.0x45mm Titanium 1149.7545 - [id number] Implanted:Qty: 1 on 06/26/2025 by Sadia Renae MD at [facility] N/A: Spine Cervical [employer] 1149.754 5 / / [employer] Connector Spinal Curved Quartex 4.0x40mm Titanium 1149.7540 - [id number] Implanted:Qty: 1 on 06/26/2025 by Sadia Renae MD at [facility] N/A: Spine Cervical [employer] 1149.754 0 / / [employer] Screw Spinal Posterior Cervical Polyaxial Self Drilling Threaded Solid Quartex 3.5x16mm Titanium 1149.3516 - [id number] Implanted:Qty: 2 on 06/26/2025 by Sadia Renae MD at [facility] N/A: Spine Cervical [employer] 1149.351 6 / / Procedures Procedure Name Priority Date/Time Associated Diagnosis Comments POCT GLUCOSE DEVICE Routine 07/04/2025 12:24 PM DAIRY TESTER EGFR Routine 07/04/2025 4:15 AM DAIRY TESTER RENAL FUNCTION PANEL Routine 07/04/2025 4:15 AM DAIRY TESTER CBC WITHOUT DIFFERENTIAL Routine 025 4:15 AM DAIRY TESTER POCT GLUCOSE DEVICE Routine 07/03/2025 8:11 PM DAIRY TESTER POCT GLUCOSE DEVICE Routine 07/03/2025 4:26 PM DAIRY TESTER POCT GLUCOSE DEVICE Routine 07/03/2025 11:11 AM DAIRY TESTER EGFR Routine 07/03/2025 4:19 AM DAIRY TESTER RENAL FUNCTION PANEL Routine 07/03/2025 4:19 AM DAIRY TESTER CBC WITHOUT DIFFERENTIAL Routine 025 4:19 AM DAIRY TESTER POCT GLUCOSE DEVICE Routine 07/02/2025 8:14 PM DAIRY TESTER POCT GLUCOSE DEVICE Routine 07/02/2025 4:05 PM DAIRY TESTER POCT GLUCOSE DEVICE Routine 07/02/2025 11:21 AM DAIRY TESTER POCT GLUCOSE DEVICE Routine 07/02/2025 8:24 AM DAIRY TESTER EGFR Routine 07/02/2025 5:49 AM DAIRY TESTER RENAL FUNCTION PANEL Routine 07/02/2025 5:49 AM DAIRY TESTER CBC WITHOUT DIFFERENTIAL Routine 025 5:49 AM DAIRY TESTER POCT GLUCOSE DEVICE Routine 07/01/2025 9:11 PM CDT POCT GLUCOSE DEVICE Routine 07/01/2025 4:05 PM CDT POCT GLUCOSE DEVICE Routine 07/01/2025 11:14 AM CDT POCT GLUCOSE DEVICE Routine 07/01/2025 7:48 AM CDT EGFR Routine 07/01/2025 6:05 AM CDT RENAL FUNCTION PANEL Routine 07/01/2025 6:05 AM CDT CBC WITHOUT DIFFERENTIAL Routine 025 6:05 AM CDT POCT GLUCOSE DEVICE Routine 06/30/2025 8:33 PM CDT POCT GLUCOSE DEVICE Routine 06/30/2025 3:55 PM CDT EGFR STAT 06/30/2025 1:17 PM CDT CALCIUM, IONIZED STAT 06/30/2025 1:17 PM CDT BASIC METABOLIC PANEL STAT 06/30/2025 1:17 PM CDT POCT GLUCOSE DEVICE Routine 06/30/2025 11:46 AM CDT FL MODIFIED BARIUM SWALLOW W VIDEO IP Routine 06/30/2025 10:54 AM CDT CALCIUM, IONIZED Timed 06/30/2025 8:19 AM CDT POCT GLUCOSE DEVICE Routine 06/30/2025 7:56 AM CDT EGFR Routine 06/30/2025 4:13 AM CDT CALCIUM, IONIZED Routine 06/30/2025 4:13 AM CDT RENAL FUNCTION PANEL Routine 06/30/2025 4:13 AM CDT CBC WITHOUT DIFFERENTIAL Routine 025 4:13 AM CDT POCT GLUCOSE DEVICE Routine 06/29/2025 11:54 PM CDT POCT GLUCOSE DEVICE Routine 06/29/2025 8:48 PM CDT POCT GLUCOSE DEVICE Routine 06/29/2025 4:16 PM CDT XR CHEST 1 VIEW ED Urgent/IP Urgent 06/29/2025 3:03 PM CDT PHOSPHORUS Timed 06/29/2025 12:58 PM CDT POCT GLUCOSE DEVICE Routine 06/29/2025 12:04 PM CDT ECG 12-LEAD Routine 06/29/2025 8:49 AM CDT POCT GLUCOSE DEVICE Routine 06/29/2025 7:51 AM CDT CALCIUM, IONIZED Timed 06/29/2025 6:36 AM CDT POCT GLUCOSE DEVICE Routine 06/29/2025 4:07 AM CDT EGFR Routine 06/29/2025 4:07 AM CDT CALCIUM, IONIZED Routine 06/29/2025 4:07 AM CDT RENAL FUNCTION PANEL Routine 06/29/2025 4:07 AM CDT CBC WITHOUT DIFFERENTIAL Routine 025 4:07 AM CDT POTASSIUM LEVEL Timed 06/28/2025 11:39 PM CDT POTASSIUM LEVEL Timed 06/28/2025 8:33 PM CDT POCT GLUCOSE DEVICE Routine 06/28/2025 8:32 PM CDT POCT GLUCOSE DEVICE Routine 06/28/2025 4:05 PM CDT POTASSIUM LEVEL Timed 06/28/2025 4:04 PM CDT PHOSPHORUS Timed 06/28/2025 11:53 AM CDT POTASSIUM LEVEL Timed 06/28/2025 11:53 AM CDT POCT GLUCOSE DEVICE Routine 06/28/2025 11:49 AM CDT XR CHEST 1 VIEW ED Urgent/IP Urgent 06/28/2025 10:49 AM CDT CALCIUM, IONIZED Timed 06/28/2025 10:13 AM CDT POCT GLUCOSE DEVICE Routine 06/28/2025 9:15 AM CDT POTASSIUM LEVEL Timed 06/28/2025 8:44 AM CDT POCT GLUCOSE DEVICE Routine 06/28/2025 8:30 AM CDT POCT GLUCOSE DEVICE Routine 06/28/2025 7:34 AM CDT POCT GLUCOSE DEVICE Routine 06/28/2025 6:10 AM CDT EGFR Routine 06/28/2025 3:23 AM CDT CALCIUM, IONIZED Routine 06/28/2025 3:23 AM CDT RENAL FUNCTION PANEL Routine 06/28/2025 3:23 AM CDT CBC WITHOUT DIFFERENTIAL Routine 025 3:23 AM CDT CALCIUM, IONIZED STAT 06/27/2025 8:40 PM CDT POCT GLUCOSE DEVICE Routine 06/27/2025 7:22 PM CDT CALCIUM, IONIZED STAT 06/27/2025 5:46 PM CDT POCT GLUCOSE DEVICE Routine 06/27/2025 5:27 PM CDT XR KUB ED Urgent/IP Urgent 06/27/2025 4:25 PM CDT CALCIUM, IONIZED STAT 06/27/2025 3:06 PM CDT HEMOGLOBIN AND HEMATOCRIT STAT 2024 3:06 PM CDT XR CHEST 1 VIEW ED Urgent/IP Urgent 06/27/2025 2:23 PM CDT GENERAL Routine 06/27/2025 2:17 PM CDT Postprocedural hypotension Poor venous access CALCIUM, IONIZED STAT 06/27/2025 12:41 PM CDT POCT GLUCOSE DEVICE Routine 06/27/2025 11:26 AM CDT XR KUB ED Urgent/IP Urgent 06/27/2025 11:21 AM CDT CALCIUM, IONIZED STAT 06/27/2025 9:28 AM CDT POCT GLUCOSE DEVICE Routine 06/27/2025 7:10 AM CDT EGFR Routine 06/27/2025 5:33 AM CDT RENAL FUNCTION PANEL Routine 06/27/2025 5:33 AM CDT CBC WITHOUT DIFFERENTIAL Routine 025 5:33 AM CDT CALCIUM, IONIZED Routine 06/27/2025 5:16 AM CDT BLOOD GAS, ARTERIAL STAT 06/26/2025 8:46 PM CDT TRIGLYCERIDES Timed 06/26/2025 8:37 PM CDT XR CHEST 1 VIEW Critical/Life -Threatening 06/26/2025 8:30 PM CDT XR CHEST 1 VIEW Critical/Life -Threatening 06/26/2025 8:29 PM CDT POCT GLUCOSE DEVICE Routine 06/26/2025 8:26 PM CDT MONITOR EXHALED CO2 Routine 06/26/2025 7:52 PM CDT FL FLUOROSCOPY < 1 HOUR IP Routine 06/26/20 7:27 PM CDT XR SPINE CERVICAL 2 OR 3 VIEWS IP Routine 06/26/2025 7:27 PM CDT NH AN PROCEDURE PLACEHOLDER Routine 06/01 4:27 PM CDT NH AN ELECTIVE ENDOTRACHEAL AIRWAY Routine 06/26/2025 4:27 PM CDT FUSION CERVICAL - POSTERIOR - 4 LEVELS 06/26/2025 2:36 PM CDT Cervical spinal stenosis POCT GLUCOSE DEVICE Routine 06/26/2025 11:10 AM CDT PHOSPHORUS Routine 06/26/2025 11:10 AM CDT POCT GLUCOSE DEVICE Routine 06/26/2025 7:31 AM CDT EGFR Routine 06/26/2025 1:01 AM CDT MAGNESIUM Routine 06/26/2025 1:01 AM CDT CBC WITHOUT DIFFERENTIAL Routine 1:01 AM CDT CALCIUM, IONIZED Routine 06/26/2025 1:01 AM CDT RENAL FUNCTION PANEL Routine 06/26/2025 1:01 AM CDT TYPE AND SCREEN Routine 06/26/2025 12:54 AM CDT POCT GLUCOSE DEVICE Routine 06/25/2025 9:21 PM CDT CALCIUM, IONIZED STAT 06/25/2025 5:43 PM CDT POTASSIUM LEVEL Timed 06/25/2025 5:43 PM CDT POCT GLUCOSE DEVICE Routine 06/25/2025 4:58 PM CDT POCT GLUCOSE DEVICE Routine 06/25/2025 12:19 PM CDT MAGNESIUM Timed 06/25/2025 9:22 AM CDT CALCIUM, IONIZED Timed 06/25/2025 9:22 AM CDT POCT GLUCOSE DEVICE Routine 06/25/2025 8:22 AM CDT EGFR Routine 06/25/2025 3:38 AM CDT MAGNESIUM Routine 06/25/2025 3:38 AM CDT CALCIUM, IONIZED Routine 06/25/2025 3:38 AM CDT RENAL FUNCTION PANEL Routine 06/25/2025 3:38 AM CDT CBC WITHOUT DIFFERENTIAL Routine 025 3:38 AM CDT POCT GLUCOSE DEVICE Routine 06/24/2025 8:26 PM CDT POCT GLUCOSE DEVICE Routine 06/24/2025 4:57 PM CDT PHOSPHORUS Timed 06/24/2025 1:17 PM CDT POCT GLUCOSE DEVICE Routine 06/24/2025 11:42 AM CDT CALCIUM, IONIZED Timed 06/24/2025 8:55 AM CDT POCT GLUCOSE DEVICE Routine 06/24/2025 7:55 AM CDT XR CHEST 1 VIEW IP Routine 06/24/2025 5:05 AM CDT EGFR Routine 06/24/2025 3:18 AM CDT MAGNESIUM Routine 06/24/2025 3:18 AM CDT CALCIUM, IONIZED Routine 06/24/2025 3:18 AM CDT RENAL FUNCTION PANEL Routine 06/24/2025 3:18 AM CDT CBC WITHOUT DIFFERENTIAL Routine 025 3:18 AM CDT BLOOD GAS, ARTERIAL STAT 06/23/2025 9:42 PM CDT CALCIUM, IONIZED STAT 06/23/2025 9:29 PM CDT LACTATE STAT 06/23/2025 9:29 PM CDT MAGNESIUM Timed 06/23/2025 8:44 PM CDT POCT GLUCOSE DEVICE Routine 06/23/2025 8:19 PM CDT BLOOD GAS, ARTERIAL Timed 06/23/2025 7:04 PM CDT HEMOGLOBIN AND HEMATOCRIT STAT 2024 5:53 PM CDT BLOOD GAS, ARTERIAL STAT 06/23/2025 5:33 PM CDT MAGNESIUM STAT 06/23/2025 5:33 PM CDT POTASSIUM LEVEL STAT 06/23/2025 5:33 PM CDT POCT GLUCOSE DEVICE Routine 06/23/2025 5:32 PM CDT PRO B-TYPE NATRIURETIC PEPTIDE STAT 06/23/2025 1:30 PM CDT SEPSIS LACTATE WITH REFLEX STAT 06/23 1:03 PM CDT XR CHEST 1 VIEW ED Urgent/IP Urgent 06/23/2025 1:02 PM CDT BLOOD GAS, ARTERIAL STAT 06/23/2025 12:47 PM CDT POCT GLUCOSE DEVICE Routine 06/23/2025 11:17 AM CDT POCT GLUCOSE DEVICE Routine 06/23/2025 5:32 AM CDT EGFR Routine 06/23/2025 4:54 AM CDT CALCIUM, IONIZED Routine 06/23/2025 4:54 AM CDT RENAL FUNCTION PANEL Routine 06/23/2025 4:54 AM CDT CBC WITHOUT DIFFERENTIAL Routine 025 4:54 AM CDT POCT GLUCOSE DEVICE Routine 06/22/2025 8:10 PM CDT POCT GLUCOSE DEVICE Routine 06/22/2025 4:15 PM CDT POCT GLUCOSE DEVICE Routine 06/22/2025 11:16 AM CDT POCT GLUCOSE DEVICE Routine 06/22/2025 6:05 AM CDT EGFR Routine 06/22/2025 5:17 AM CDT CALCIUM, IONIZED Routine 06/22/2025 5:17 AM CDT RENAL FUNCTION PANEL Routine 06/22/2025 5:17 AM CDT CBC WITHOUT DIFFERENTIAL Routine 025 5:17 AM CDT POCT GLUCOSE DEVICE Routine 06/21/2025 8:52 PM CDT POCT GLUCOSE DEVICE Routine 06/21/2025 4:13 PM CDT CBC WITHOUT DIFFERENTIAL STAT 025 1:49 PM CDT CALCIUM, IONIZED Routine 06/21/2025 1:49 PM CDT POCT GLUCOSE DEVICE Routine 06/21/2025 11:15 AM CDT EGFR Routine 06/21/2025 6:08 AM CDT RENAL FUNCTION PANEL Routine 06/21/2025 6:08 AM CDT POCT GLUCOSE DEVICE Routine 06/21/2025 4:53 AM CDT POCT GLUCOSE DEVICE Routine 06/20/2025 8:28 PM CDT POCT GLUCOSE DEVICE Routine 06/20/2025 4:39 PM CDT POCT GLUCOSE DEVICE Routine 06/20/2025 11:22 AM CDT POCT GLUCOSE DEVICE Routine 06/20/2025 6:41 AM CDT EGFR Routine 06/20/2025 4:43 AM CDT CALCIUM, IONIZED Routine 06/20/2025 4:43 AM CDT RENAL FUNCTION PANEL Routine 06/20/2025 4:43 AM CDT CBC WITHOUT DIFFERENTIAL Routine 025 4:43 AM CDT POCT GLUCOSE DEVICE Routine 06/19/2025 7:50 PM CDT POCT GLUCOSE DEVICE Routine 06/19/2025 4:31 PM CDT MRI BRAIN W WO CONTRAST IP Routine 06/19/20 11:58 AM CDT MRI SPINE TOTAL COMPLETE W W O CONTRAST IP Routine 06/19/2025 11:57 AM CDT EGFR Routine 06/19/2025 7:57 AM CDT CALCIUM, IONIZED Routine 06/19/2025 7:57 AM CDT RENAL FUNCTION PANEL Routine 06/19/2025 7:57 AM CDT CBC WITHOUT DIFFERENTIAL Routine 025 7:57 AM CDT POCT GLUCOSE DEVICE Routine 06/19/2025 5:56 AM CDT POTASSIUM LEVEL STAT 06/18/2025 9:57 PM CDT POCT GLUCOSE DEVICE Routine 06/18/2025 9:43 PM CDT POTASSIUM LEVEL Routine 06/18/2025 7:55 PM CDT POCT GLUCOSE DEVICE Routine 06/18/2025 4:28 PM CDT POCT GLUCOSE DEVICE Routine 06/18/2025 11:47 AM CDT EGFR Routine 06/18/2025 9:38 AM CDT CALCIUM, IONIZED Routine 06/18/2025 9:38 AM CDT RENAL FUNCTION PANEL Routine 06/18/2025 9:38 AM CDT CBC WITHOUT DIFFERENTIAL Routine 025 9:38 AM CDT POCT GLUCOSE DEVICE Routine 06/18/2025 6:28 AM CDT POCT GLUCOSE DEVICE Routine 06/17/2025 9:01 PM CDT POTASSIUM LEVEL Routine 06/17/2025 6:38 PM CDT POCT GLUCOSE DEVICE Routine 06/17/2025 4:16 PM CDT POCT GLUCOSE DEVICE Routine 06/17/2025 11:15 AM CDT POCT GLUCOSE DEVICE Routine 06/17/2025 6:41 AM CDT EGFR Routine 06/17/2025 6:39 AM CDT CALCIUM, IONIZED Routine 06/17/2025 6:39 AM CDT RENAL FUNCTION PANEL Routine 06/17/2025 6:39 AM CDT CBC WITHOUT DIFFERENTIAL Routine 025 6:39 AM CDT POCT GLUCOSE DEVICE Routine 06/16/2025 10:15 PM CDT EGFR Routine 06/16/2025 7:24 AM CDT PHOSPHORUS Routine 06/16/2025 7:24 AM CDT BILIRUBIN, DIRECT Routine 06/16/2025 7:24 AM CDT COMPREHENSIVE METABOLIC PANEL Routine 7:24 AM CDT MAGNESIUM Routine 06/16/2025 7:24 AM CDT CALCIUM, IONIZED Routine 06/16/2025 7:24 AM CDT CBC WITHOUT DIFFERENTIAL Routine 7:24 AM CDT EGFR Routine 06/15/2025 5:29 AM CDT PHOSPHORUS Routine 06/15/2025 5:29 AM CDT BILIRUBIN, DIRECT Routine 06/15/2025 5:29 AM CDT COMPREHENSIVE METABOLIC PANEL Routine 5:29 AM CDT DIFFERENTIAL AUTO Routine 06/15/2025 5:29 AM CDT CBC WITH AUTO DIFFERENTIAL Routine 06/15 5:29 AM CDT MAGNESIUM Routine 06/15/2025 5:29 AM CDT CALCIUM, IONIZED Routine 06/15/2025 5:29 AM CDT CP-CRE CULTURE, SURVEILLANCE Routine 12:31 PM CDT ALDOLASE Routine 06/14/2025 12:09 PM CDT CREATINE KINASE (CK), TOTAL Routine 05/31 12:09 PM CDT EGFR Routine 06/14/2025 6:52 AM CDT PHOSPHORUS Routine 06/14/2025 6:52 AM CDT BILIRUBIN, DIRECT Routine 06/14/2025 6:52 AM CDT COMPREHENSIVE METABOLIC PANEL Routine 6:52 AM CDT DIFFERENTIAL AUTO Routine 06/14/2025 6:52 AM CDT CBC WITH AUTO DIFFERENTIAL Routine 06/14 6:52 AM CDT MAGNESIUM Routine 06/14/2025 6:52 AM CDT CALCIUM, IONIZED Routine 06/14/2025 6:52 AM CDT POCT GLUCOSE DEVICE Routine 06/13/2025 8:53 PM CDT POCT GLUCOSE DEVICE Routine 06/13/2025 6:[address] HEAD WO CONTRAST IP Routine 06/13/2025 5:37 PM CDT EGFR Routine 06/13/2025 5:41 AM CDT CALCIUM, IONIZED Routine 06/13/2025 5:41 AM CDT RENAL FUNCTION PANEL Routine 06/13/2025 5:41 AM CDT CBC WITHOUT DIFFERENTIAL Routine 5:41 AM CDT EGFR Routine 06/12/2025 6:05 PM CDT RENAL FUNCTION PANEL Routine 06/12/2025 6:05 PM CDT CALCIUM, IONIZED Routine 06/12/2025 6:04 PM CDT CELL DIFFERENTIAL, BODY FLUID Routine 2:17 PM CDT MYCOBACTERIOLOGY AFB CULTURE AND ACID-FAST STAIN Routine 06/12/2025 2:17 PM CDT MYCOLOGY (FUNGAL) CULTURE Routine 2024 2:17 PM CDT AEROBIC CULTURE AND GRAM STAIN Routine 06/12/2025 2:17 PM CDT XR CHEST 1 VIEW ED Urgent/IP Urgent 06/12/2025 2:01 PM CDT CYTOLOGY Routine 06/12/2025 1:42 PM CDT SURGICAL PATHOLOGY Routine 06/12/2025 1:42 PM CDT NH AN PROCEDURE PLACEHOLDER Routine 05/31 1:20 PM CDT NH AN ELECTIVE ENDOTRACHEAL AIRWAY Routine 06/12/2025 1:20 PM CDT BRONCHOSOPY WITH ENDOBRONCHIAL ULTRASOUND WITH GUIDE - PERIPHERAL LESION(S) 06/12/2025 1:[address] BRONCHOSCOPY WITH LAVAGE 025 1:[address] BRONCHOSCOPY WITH TRANSBRONCHIAL BIOPSY 06/12/2025 1:[address] chest [address] POCT GLUCOSE DEVICE Routine 06/12/2025 12:57 PM CDT BRONCHOSCOPY 06/12/2025 12:56 PM CDT STRESS TEST FOR DUAL READ IP Routine 2024 12:29 PM CDT NM MPI SPECT (REST AND/OR STRESS) MULTIPLE STUDIES IP Routine 06/12/2025 12:29 PM CDT ANGIOTENSIN CONVERTING ENZYME Routine 6:10 AM CDT EGFR Routine 06/12/2025 6:10 AM CDT 1,25 DIHYDROXYCHOLECALCIFEROL STAT 6:10 AM CDT CALCIUM, IONIZED Routine 06/12/2025 6:10 AM CDT COMPREHENSIVE METABOLIC PANEL Routine 6:10 AM CDT CBC WITHOUT DIFFERENTIAL Routine 025 6:10 AM CDT IMMUNOFIXATION, URINE Routine 06/11/2025 10:11 AM CDT VOLUME AND PERIOD, URINE, 24 HOUR Routine 06/11/2025 10:11 AM CDT PROTEIN ELECTROPHORESIS, URINE, 24 HOUR RESULT Routine 06/11/2025 10:11 AM CDT PROTEIN ELECTROPHORESIS, URINE, 24 HOUR WITH IMMUNOFIXATION Routine 06/11/2025 10:11 AM CDT IMMUNOGLOBULIN FREE LIGHT CHAINS Routine 06/11/2025 7:39 AM CDT EGFR Routine 06/11/2025 5:59 AM CDT COMPREHENSIVE METABOLIC PANEL Routine 5:59 AM CDT CBC WITHOUT DIFFERENTIAL Routine 025 5:59 AM CDT MAGNESIUM Routine 06/11/2025 5:59 AM CDT PHOSPHORUS Routine 06/11/2025 5:59 AM CDT EGFR STAT 06/10/2025 10:27 PM CDT MAGNESIUM STAT 06/10/2025 10:27 PM CDT BASIC METABOLIC PANEL STAT 06/10/2025 10:27 PM CDT CALCIUM, IONIZED Routine 06/10/2025 10:27 PM CDT ECG 12-LEAD Routine 06/10/2025 9:[address] CHEST ABDOMEN PELVIS W CONTRAST IP Routine 06/10/2025 6:08 PM CDT IMMUNOTYPING Routine 06/10/2025 4:50 AM CDT EGFR Routine 06/10/2025 4:50 AM CDT RENAL FUNCTION PANEL Routine 06/10/2025 4:50 AM CDT PROTEIN ELECTROPHORESIS, WIT H REFLEX, SERUM Routine 06/10/2025 4:50 AM CDT EGFR Routine 06/09/2025 11:24 AM CDT BASIC METABOLIC PANEL Routine 06/09/2025 11:24 AM CDT TRANSTHORACIC ECHO (TTE) COMPLETE W DOPPLER/CF W CONTRAST Routine 06/08/2025 5:43 PM CDT PTH-RELATED PEPTIDE Routine 06/08/2025 4:26 PM CDT CONDITIONAL USE LAVENDER-TOP TUBE Routine 06/08/2025 4:26 PM CDT BLOOD MISC TO KUNA Routine 06/08/2025 4:26 PM CDT CONDITIONAL USE LAVENDER-TOP TUBE Routine 06/08/2025 4:26 PM CDT PTH WITH REFLEX TO PTHRP (HYPERCALCEMIA REFLEX) Routine 06/08/2025 4:26 PM CDT VITAMIN D 25 HYDROXY Routine 06/08/2025 4:26 PM CDT US LIVER IP Routine 06/08/2025 9:48 AM CDT EGFR Routine 06/08/2025 5:26 AM CDT DIFFERENTIAL AUTO Routine 06/08/2025 5:26 AM CDT CALCIUM, IONIZED Routine 06/08/2025 5:26 AM CDT HEPATIC FUNCTION PANEL Routine 5:26 AM CDT HEMOGLOBIN A1C Routine 06/08/2025 5:26 AM CDT CBC WITH AUTO DIFFERENTIAL Routine 06/08 5:26 AM CDT BASIC METABOLIC PANEL Routine 06/08/2025 5:26 AM CDT ADD ON LAB TEST Add-On 06/07/2025 6:20 PM CDT CALCIUM, IONIZED Routine 06/07/2025 6:04 PM CDT PTH Routine 06/07/2025 6:04 PM CDT ADD ON LAB TEST Add-On 06/07/2025 3:12 PM CDT ADD ON LAB TEST Add-On 06/07/2025 3:06 PM CDT ADD ON LAB TEST Add-On 06/07/2025 3:06 PM CDT ADD ON LAB TEST Add-On 06/07/2025 3:06 PM CDT ADD ON LAB TEST Add-On 06/07/2025 3:06 PM CDT XR CHEST PA LATERAL 2 VIEWS ED 03/2025 11:45 AM CDT URINALYSIS, MICROSCOPIC ONLY STAT 03/2025 11:17 AM CDT URINALYSIS AND REFLEX TO MICROSCOPIC AND CULTURE STAT 06/07/2025 11:17 AM CDT CREATINE KINASE (CK), TOTAL Timed 03/2025 11:03 AM CDT VITAMIN D 25 HYDROXY Timed 06/07/2025 11:03 AM CDT MAGNESIUM Timed 06/07/2025 11:03 AM CDT PRO B-TYPE NATRIURETIC PEPTIDE Timed 06/07/2025 11:03 AM CDT PROCALCITONIN Timed 06/07/2025 11:03 AM CDT THYROID FUNCTION CASCADE Timed 025 11:03 AM CDT TROPONIN T HIGH-SENSITIVITY 2-HOUR Timed 06/07/2025 11:03 AM CDT RESPIRATORY PATHOGEN PANEL STAT 06/07 11:03 AM CDT ADD ON LAB TEST Add-On 06/07/2025 10:39 AM CDT SEPSIS LACTATE WITH REFLEX STAT 06/07 9:50 AM CDT TROPONIN T HIGH-SENSITIVITY SERIES (BASELINE, 2HR, 4HR, 6HR) STAT 06/07/2025 9:23 AM CDT EGFR STAT 06/07/2025 9:23 AM CDT DIFFERENTIAL AUTO STAT 06/07/2025 9:23 AM CDT COMPREHENSIVE METABOLIC PANEL STAT 9:23 AM CDT CBC WITH AUTO DIFFERENTIAL STAT 06/07 9:23 AM CDT ECG 12-LEAD STAT 06/07/2025 9:20 AM CDT POCT GLUCOSE DEVICE Routine 05/10/2025 11:58 AM CDT POCT GLUCOSE DEVICE Routine 05/10/2025 6:07 AM CDT EGFR Routine 05/10/2025 4:24 AM CDT MAGNESIUM Routine 05/10/2025 4:24 AM CDT BASIC METABOLIC PANEL Routine 05/10/2025 4:24 AM CDT POCT GLUCOSE DEVICE Routine 05/09/2025 8:37 PM CDT POCT GLUCOSE DEVICE Routine 05/09/2025 4:42 PM CDT ECG 12-LEAD Routine 05/09/2025 2:10 PM CDT POCT GLUCOSE DEVICE Routine 05/09/2025 11:25 AM CDT APTT Routine 05/09/2025 10:29 AM CDT PROTIME-INR Routine 05/09/2025 10:29 AM CDT ADD ON LAB TEST Add-On 05/09/2025 9:24 AM CDT DIFFERENTIAL AUTO Routine 05/09/2025 6:18 AM CDT CBC WITH AUTO DIFFERENTIAL Routine 05/09 6:18 AM CDT POCT GLUCOSE DEVICE Routine 05/09/2025 6:11 AM CDT MAGNESIUM Routine 05/09/2025 3:45 AM CDT EGFR Routine 05/09/2025 3:45 AM CDT COMPREHENSIVE METABOLIC PANEL Routine 3:45 AM CDT POCT GLUCOSE DEVICE Routine 05/09/2025 12:[address] OUTSIDE REFERENCE Routine 05/07 12:00 AM CDT XR TRANSFER OF OUTSIDE FILMS Routine 02/2025 12:00 AM CDT NEURO MR OUTSIDE REFERENCE Routine 05/02 12:10 AM CDT NEURO MR OUTSIDE REFERENCE Routine 05/02 12:05 AM CDT NEURO MR OUTSIDE REFERENCE Routine 05/02 12:00 AM CDT NEURO MR OUTSIDE REFERENCE Routine 04/30 12:00 AM CDT SERUM LIPID PANEL Routine 04/10/2016 10:35 PM CDT from Last 3 Months or Most Recently Relevant to Health Maintenance Results * (ABNORMAL) POCT glucose (07/04/2025 12:24 PM DAIRY TESTER) Glucose, POC 258(H) 70 - 199 mg/dL Comment: For Glucose values <35 mg/dl when Hematocrit is >60 mg/dl,the test may not accurately detect significant hypoglycemia,and testing in the Laboratory should be considered if clinically indicated. Blood 07/04/2025 12:2 4 PM DAIRY TESTER 07/04/2025 12:24 PM DAIRY TESTER La Maldonado MD LAB POCT ORDERABLES - DEVICE F inal Result [facility] [address] Department [place] [address] * eGFR (07/04/2025 4:15 AM DAIRY TESTER) Pathologist [facility] eGFR >90 >=60 mL/min/1. 73 m2 Comment: [...] interpretive data was last reviewed 2021. Blood 07/04/2025 4:15 AM DAIRY TESTER 07/04/2025 4:20 AM DAIRY TESTER us Nuvia Byrd DO LAB BLOOD ORDERABLES Final R esult [facility] [address] Department [place] [address] * (ABNORMAL) CBC without differential (07/04/2025 4:15 AM DAIRY TESTER) WBC 9.05 3.80 - 9.90 K/cumm Hgb 8.7(L) 11.9 - 15.5 g/dL [facility] Hct 29.0(L) 35.6 - 45.5 % [facility] Plt 182 150 - 400 K/cumm [facility] MPV 12.1 9.1 - 12.3 fL [facility] RBC 3.08(L) 3.90 - 5.20 M/cumm [facility] MCV 94.2 81.3 - 96.4 fL [facility] MCH 28.2 27.1 - 33.3 pg [facility] MCHC 30.0(L) 32.3 - 35.7 g/dL [facility] RDW CV 19.0(H) 11.1 - 14.9 % [facility] RDW SD 64.6(H) 35.7 - 48.1 fL [facility] NRBC abs 0.00 0.00 - 0.01 K/cumm [facility] Blood 07/04/2025 4:15 AM DAIRY TESTER 07/04/2025 4:20 AM DAIRY TESTER us Gordo Corrales MD LAB BLOOD ORDERABLES Fi nal Result [facility] [address] Department [place] [address] * (ABNORMAL) Renal function panel (07/04/2025 4:15 AM DAIRY TESTER) Sodium 140 135 - 145 mmol/L Potassium, pl 3.4 3.3 - 4.9 mmol/L [facility] Chloride 97 97 - 110 mmol/L [facility] CO2 35(H) 22 - 32 mmol/L [facility] Anion gap 8 2 - 15 mmol/L [facility] BUN 20 6 - 25 mg/dL [facility] Creatinine 0.64 0.60 - 1.10 mg/dL [facility] Glucose 106 70 - 199 mg/dL [facility] Comment: Interpretive Data Fasting glucose >/= [...] interpretive data was last revised 2022. Calcium 8.7 8.5 - 10.3 mg/dL [facility] Phosphorus, pl 2.3 2.3 - 4.5 mg/dL [facility] Albumin 2.8(L) 3.5 - 5.0 g/dL [facility] Blood 07/04/2025 4:15 AM DAIRY TESTER 07/04/2025 4:20 AM DAIRY TESTER us Nuvia Byrd DO LAB BLOOD ORDERABLES Final R esult Performing Organization Address [facility] de Phone Number [facility] [address] Department [employer] [place], [place] [id number] * POCT glucose (07/03/2025 8:11 PM DAIRY TESTER) Glucose, POC 148 70 - 199 mg/dL Comment: For Glucose values <35 mg/dl when Hematocrit is >60 mg/dl,the test may not accurately detect significant hypoglycemia,and testing in the Laboratory should be considered if clinically indicated. Blood 07/03/2025 8:11 PM DAIRY TESTER 07/03/2025 8:11 PM DAIRY TESTER us Jonas Kline MD LAB POCT ORDERABLES - DEVICE Fin al Result Performing Organization Address [facility] de Phone Number [facility] [address] [place] [address] * POCT glucose (07/03/2025 4:26 PM DAIRY TESTER) Glucose, POC 162 70 - 199 mg/dL Comment: For Glucose values <35 mg/dl when Hematocrit is >60 mg/dl,the test may not accurately detect significant hypoglycemia,and testing in the Laboratory should be considered if clinically indicated. Blood 07/03/2025 4:26 PM DAIRY TESTER 07/03/2025 4:26 PM DAIRY TESTER us Jonas Kline MD LAB POCT ORDERABLES - DEVICE Fin al Result Performing Organization Address [facility] Co de Phone Number [facility] [address] [place] [address] * POCT glucose (07/03/2025 11:11 AM DAIRY TESTER) Glucose, POC 111 70 - 199 mg/dL Comment: For Glucose values <35 mg/dl when Hematocrit is >60 mg/dl,the test may not accurately detect significant hypoglycemia,and testing in the Laboratory should be considered if clinically indicated. Blood 07/03/2025 11:1 1 AM DAIRY TESTER 07/03/2025 11:11 AM DAIRY TESTER us Jonas Kline MD LAB POCT ORDERABLES - DEVICE Fin al Result Performing Organization Address [facility] Co de Phone Number [facility] [address] Department of Laboratories [place], [place] [id number] * eGFR (07/03/2025 4:19 AM DAIRY TESTER) Pathologist [facility] eGFR >90 >=60 mL/min/1. 73 m2 Comment: [...] interpretive data was last reviewed 2021. Blood 07/03/2025 4:19 AM DAIRY TESTER 07/03/2025 4:42 AM DAIRY TESTER us Nuvia Byrd DO LAB BLOOD ORDERABLES Final R esult Performing Organization Address [facility]/ZIP Co de Phone Number [facility] [address] Department [place] [address] * (ABNORMAL) CBC without differential (07/03/2025 4:19 AM DAIRY TESTER) [facility] WBC 9.60 3.80 - 9.90 K/cumm Hgb 8.7(L) 11.9 - 15.5 g/dL [facility] Hct 29.4(L) 35.6 - 45.5 % [facility] Plt 150 150 - 400 K/cumm [facility] MPV 12.7(H) 9.1 - 12.3 fL [facility] RBC 3.13(L) 3.90 - 5.20 M/cumm [facility] MCV 93.9 81.3 - 96.4 fL [facility] MCH 27.8 27.1 - 33.3 pg [facility] MCHC 29.6(L) 32.3 - 35.7 g/dL [facility] RDW CV 18.9(H) 11.1 - 14.9 % [facility] RDW SD 63.4(H) 35.7 - 48.1 fL [facility] NRBC abs 0.00 0.00 - 0.01 K/cumm [facility] Blood 07/03/2025 4:19 AM DAIRY TESTER 07/03/2025 4:42 AM DAIRY TESTER Gordo Corrales MD LAB BLOOD ORDERABLES Fi nal Result [facility] [address] Department [place] [address] * (ABNORMAL) Renal function panel (07/03/2025 4:19 AM DAIRY TESTER) Sodium 137 135 - 145 mmol/L Potassium, pl 3.3 3.3 - 4.9 mmol/L [facility] Chloride 96(L) 97 - 110 mmol/L [facility] CO2 35(H) 22 - 32 mmol/L [facility] Anion gap 6 2 - 15 mmol/L [facility] BUN 20 6 - 25 mg/dL [facility] Creatinine 0.56(L) 0.60 - 1.10 mg/dL [facility] Glucose 118 70 - 199 mg/dL [facility] Comment: Interpretive Data Fasting glucose >/= [...] interpretive data was last revised 2022. Calcium 8.4(L) 8.5 - 10.3 mg/dL [facility] Phosphorus, pl 1.9(L) 2.3 - 4.5 mg/dL [facility] Albumin 2.9(L) 3.5 - 5.0 g/dL [facility] Blood 07/03/2025 4:19 AM DAIRY TESTER 07/03/2025 4:42 AM DAIRY TESTER Nuvia Byrd DO LAB BLOOD ORDERABLES Final R esult Performing Organization Address [facility] Co de Phone Number [facility] [address] Department of [employer] [place], [place] [id number] * POCT glucose (07/02/2025 8:14 PM DAIRY TESTER) Glucose, POC 163 70 - 199 mg/dL Comment: For Glucose values <35 mg/dl when Hematocrit is >60 mg/dl,the test may not accurately detect significant hypoglycemia,and testing in the Laboratory should be considered if clinically indicated. Blood 07/02/2025 8:14 PM DAIRY TESTER 07/02/2025 8:14 PM DAIRY TESTER Jonas Kline MD LAB POCT ORDERABLES - DEVICE Fin al Result Performing Organization Address [facility] Co de Phone Number [facility] [address] Department of [employer] [place], [place] [id number] * (ABNORMAL) POCT glucose (07/02/2025 4:05 PM DAIRY TESTER) Glucose, POC 201(H) 70 - 199 mg/dL Comment: For Glucose values <35 mg/dl when Hematocrit is >60 mg/dl,the test may not accurately detect significant hypoglycemia,and testing in the Laboratory should be considered if clinically indicated. Blood 07/02/2025 4:05 PM DAIRY TESTER 07/02/2025 4:05 PM DAIRY TESTER us Jonas Kline MD LAB POCT ORDERABLES - DEVICE Fin al Result Performing Organization Address [facility] de Phone Number [facility] [address] Department [employer] [place], [place] [id number] * (ABNORMAL) POCT glucose (07/02/2025 11:21 AM DAIRY TESTER) Glucose, POC 207(H) 70 - 199 mg/dL Comment: For Glucose values <35 mg/dl when Hematocrit is >60 mg/dl,the test may not accurately detect significant hypoglycemia,and testing in the Laboratory should be considered if clinically indicated. Blood 07/02/2025 11:2 1 AM DAIRY TESTER 07/02/2025 11:21 AM DAIRY TESTER us Jonas Kline MD LAB POCT ORDERABLES - DEVICE Fin al Result Performing Organization Address [facility] de Phone Number [facility] [address] [facility] [place] [address] * POCT glucose (07/02/2025 8:24 AM DAIRY TESTER) Glucose, POC 167 70 - 199 mg/dL Comment: For Glucose values <35 mg/dl when Hematocrit is >60 mg/dl,the test may not accurately detect significant hypoglycemia,and testing in the Laboratory should be considered if clinically indicated. Blood 07/02/2025 8:24 AM DAIRY TESTER 07/02/2025 8:24 AM DAIRY TESTER us Jonas Kline MD LAB POCT ORDERABLES - DEVICE Fin al Result Performing Organization Address [facility] Co de Phone Number [facility] [address] [place] [address] * eGFR (07/02/2025 5:49 AM DAIRY TESTER) eGFR >90 >=60 mL/min/1. 73 m2 Comment: [...] interpretive data was last reviewed 2021. Blood 07/02/2025 5:49 AM DAIRY TESTER 07/02/2025 6:01 AM DAIRY TESTER us Nuvia Byrd DO LAB BLOOD ORDERABLES Final R esult [facility] [address] Department [place] [address] * (ABNORMAL) CBC without differential (07/02/2025 5:49 AM DAIRY TESTER) WBC 10.36(H) 3.80 - 9.90 K/cumm Hgb 9.0(L) 11.9 - 15.5 g/dL [facility] Hct 29.2(L) 35.6 - 45.5 % [facility] Plt 142(L) 150 - 400 K/cumm [facility] MPV 12.5(H) 9.1 - 12.3 fL [facility] RBC 3.17(L) 3.90 - 5.20 M/cumm [facility] MCV 92.1 81.3 - 96.4 fL [facility] MCH 28.4 27.1 - 33.3 pg [facility] MCHC 30.8(L) 32.3 - 35.7 g/dL [facility] RDW CV 18.6(H) 11.1 - 14.9 % [facility] RDW SD 61.5(H) 35.7 - 48.1 fL [facility] NRBC abs 0.00 0.00 - 0.01 K/cumm [facility] Blood 07/02/2025 5:49 AM DAIRY TESTER 07/02/2025 6:01 AM DAIRY TESTER us Gordo Corrales MD LAB BLOOD ORDERABLES Fi nal Result [facility] [address] Department [place] [address] * (ABNORMAL) Renal function panel (07/02/2025 5:49 AM DAIRY TESTER) Sodium 140 135 - 145 mmol/L Potassium, pl 3.3 3.3 - 4.9 mmol/L [facility] Chloride 98 97 - 110 mmol/L [facility] CO2 33(H) 22 - 32 mmol/L [facility] Anion gap 9 2 - 15 mmol/L [facility] BUN 21 6 - 25 mg/dL [facility] Creatinine 0.51(L) 0.60 - 1.10 mg/dL [facility] Glucose 125 70 - 199 mg/dL [facility] Comment: Interpretive Data Fasting glucose >/= [...] interpretive data was last revised 2022. Calcium 8.4(L) 8.5 - 10.3 mg/dL [facility] Phosphorus, pl 2.1(L) 2.3 - 4.5 mg/dL [facility] Albumin 2.6(L) 3.5 - 5.0 g/dL [facility] Blood 07/02/2025 5:49 AM DAIRY TESTER 07/02/2025 6:01 AM DAIRY TESTER Nuvia Byrd LAB BLOOD ORDERABLES Final R esult Performing Organization Address [facility] Co de Phone Number [facility] [address] Department [place] [address] * POCT glucose (07/01/2025 9:11 PM CDT) Glucose, POC 179 70 - 199 mg/dL Comment: For Glucose values <35 mg/dl when Hematocrit is >60 mg/dl,the test may not accurately detect significant hypoglycemia,and testing in the Laboratory should be considered if clinically indicated. Blood 07/01/2025 9:11 PM CDT 07/01/2025 9:11 PM CDT Jonas Kline MD LAB POCT ORDERABLES - DEVICE Fin al Result Performing Organization Address [facility] de Phone Number [facility] [address] [place] [address] * POCT glucose (07/01/2025 4:05 PM CDT) Glucose, POC 194 70 - 199 mg/dL Comment: For Glucose values <35 mg/dl when Hematocrit is >60 mg/dl,the test may not accurately detect significant hypoglycemia,and testing in the Laboratory should be considered if clinically indicated. Blood 07/01/2025 4:05 PM CDT 07/01/2025 4:05 PM CDT Jonas Kline MD LAB POCT ORDERABLES - DEVICE Fin al Result Performing Organization Address [facility] Co de Phone Number [facility] [address] [place] [address] * POCT glucose (07/01/2025 11:14 AM CDT) Glucose, POC 186 70 - 199 mg/dL Comment: For Glucose values <35 mg/dl when Hematocrit is >60 mg/dl,the test may not accurately detect significant hypoglycemia,and testing in the Laboratory should be considered if clinically indicated. Blood 07/01/2025 11:1 4 AM CDT 07/01/2025 11:14 AM CDT us Jonas Kline MD LAB POCT ORDERABLES - DEVICE Fin al Result Performing Organization Address [facility] Co de Phone Number [facility] [address] Department of Laboratories [place], [place] [id number] * POCT glucose (07/01/2025 7:48 AM CDT) Pathologist [facility] Glucose, POC 141 70 - 199 mg/dL Comment: For Glucose values <35 mg/dl when Hematocrit is >60 mg/dl,the test may not accurately detect significant hypoglycemia,and testing in the Laboratory should be considered if clinically indicated. Blood 07/01/2025 7:48 AM CDT 07/01/2025 7:48 AM CDT us Jonas Kline MD LAB POCT ORDERABLES - DEVICE Fin al Result Performing Organization Address [facility] Co de Phone Number [facility] [address] [place] [address] * eGFR (07/01/2025 6:05 AM CDT) Pathologist [facility] eGFR >90 >=60 mL/min/1. 73 m2 Comment: [...] interpretive data was last reviewed 2021. Blood 07/01/2025 6:05 AM CDT 07/01/2025 6:11 AM CDT us Nuvia Byrd DO LAB BLOOD ORDERABLES Final R esult [facility] [address] Department [place] [address] * (ABNORMAL) CBC without differential (07/01/2025 6:05 AM CDT) WBC 10.39(H) 3.80 - 9.90 K/cumm Hgb 8.7(L) 11.9 - 15.5 g/dL [facility] Hct 29.0(L) 35.6 - 45.5 % [facility] Plt 120(L) 150 - 400 K/cumm [facility] MPV 11.6 9.1 - 12.3 fL [facility] RBC 3.15(L) 3.90 - 5.20 M/cumm [facility] MCV 92.1 81.3 - 96.4 fL [facility] MCH 27.6 27.1 - 33.3 pg [facility] MCHC 30.0(L) 32.3 - 35.7 g/dL [facility] RDW CV 18.6(H) 11.1 - 14.9 % [facility] RDW SD 60.4(H) 35.7 - 48.1 fL [facility] NRBC abs 0.00 0.00 - 0.01 K/cumm [facility] Blood 07/01/2025 6:05 AM CDT 07/01/2025 6:11 AM CDT us Gordo Corrales MD LAB BLOOD ORDERABLES Fi nal Result [facility] [address] Department [place] [address] * (ABNORMAL) Renal function panel (07/01/2025 6:05 AM CDT) Sodium 140 135 - 145 mmol/L Potassium, pl 3.2(L) 3.3 - 4.9 mmol/L [facility] Chloride 97 97 - 110 mmol/L [facility] CO2 33(H) 22 - 32 mmol/L [facility] Anion gap 10 2 - 15 mmol/L [facility] BUN 18 6 - 25 mg/dL [facility] Creatinine 0.50(L) 0.60 - 1.10 mg/dL [facility] Glucose 126 70 - 199 mg/dL [facility] Comment: Interpretive Data Fasting glucose >/= [...] interpretive data was last revised 2022. Calcium 8.4(L) 8.5 - 10.3 mg/dL [facility] Phosphorus, pl 2.2(L) 2.3 - 4.5 mg/dL [facility] Albumin 2.7(L) 3.5 - 5.0 g/dL [facility] Blood 07/01/2025 6:05 AM CDT 07/01/2025 6:11 AM CDT Nuvia Byrd DO LAB BLOOD ORDERABLES Final R esult [facility] [address] Department [place] [address] * (ABNORMAL) POCT glucose (06/30/2025 8:33 PM CDT) Glucose, POC 207(H) 70 - 199 mg/dL Comment: For Glucose values <35 mg/dl when Hematocrit is >60 mg/dl,the test may not accurately detect significant hypoglycemia,and testing in the Laboratory should be considered if clinically indicated. Blood 06/30/2025 8:33 PM CDT 06/30/2025 8:33 PM CDT us Jonas Kline MD LAB POCT ORDERABLES - DEVICE Fin al Result Performing Organization Address [facility] Co de Phone Number [facility] [address] [facility] [place] [address] * (ABNORMAL) POCT glucose (06/30/2025 3:55 PM CDT) Glucose, POC 269(H) 70 - 199 mg/dL Comment: For Glucose values <35 mg/dl when Hematocrit is >60 mg/dl,the test may not accurately detect significant hypoglycemia,and testing in the Laboratory should be considered if clinically indicated. Blood 06/30/2025 3:55 PM CDT 06/30/2025 3:55 PM CDT us Jonas Kline MD LAB POCT ORDERABLES - DEVICE Fin al Result Performing Organization Address [facility] Co de Phone Number [facility] [address] [place] [address] * eGFR (06/30/2025 1:17 PM CDT) eGFR >90 >=60 mL/min/1. 73 m2 [...] interpretive data was last reviewed 2021. Blood 06/30/2025 1:17 PM CDT 06/30/2025 1:23 PM CDT Shawn Wong MD LAB BLOOD ORDERABLES Final R esult Performing Organization Address City/[facility]/ZIP Co de Phone Number [facility] [address] [place] [place] [address] * (ABNORMAL) Calcium, ionized (06/30/2025 1:17 PM CDT) Calcium, Ionized 4.33(L) 4.50 - 5.10 mg/dL Blood 06/30/2025 1:17 PM CDT 06/30/2025 1:20 PM CDT us Shawn Wong MD LAB BLOOD ORDERABLES Final R esult [facility] [address] Department [employer] [place], [place] [id number] * (ABNORMAL) Basic metabolic panel (06/30/2025 1:17 PM CDT) Sodium 138 135 - 145 mmol/L Potassium, pl 4.2 3.3 - 4.9 mmol/L [facility] Chloride 97 97 - 110 mmol/L [facility] CO2 33(H) 22 - 32 mmol/L [facility] Anion gap 8 2 - 15 mmol/L [facility] BUN 20 6 - 25 mg/dL [facility] Creatinine 0.52(L) 0.60 - 1.10 mg/dL [facility] Glucose 319(H) 70 - 199 mg/dL [facility] Comment: Interpretive Data Fasting glucose >/= [...] interpretive data was last revised 2022. Calcium 8.5 8.5 - 10.3 mg/dL [facility] Blood 06/30/2025 1:17 PM CDT 06/30/2025 1:20 PM CDT us Shawn Wong MD LAB BLOOD ORDERABLES Final R esult Performing Organization Address City/[facility]/ZIP Co de Phone Number [facility] [address] [place] [address] * (ABNORMAL) POCT glucose (06/30/2025 11:46 AM CDT) [facility] Glucose, POC 273(H) 70 - 199 mg/dL Comment: For Glucose values <35 mg/dl when Hematocrit is >60 mg/dl,the test may not accurately detect significant hypoglycemia,and testing in the Laboratory should be considered if clinically indicated. Blood 06/30/2025 11:4 6 AM CDT 06/30/2025 11:46 AM CDT us Shawn Wong MD LAB POCT ORDERABLES - DEVICE Final Result [facility] [address] [place] [address] * FL Modified Barium Swallow W Video (06/30/2025 10:54 AM CDT) Anatomical Region Laterality Modality Head and Neck N/A Radio Fluoroscop y 06/30/2025 11:0 1 AM CDT Impressions 06/30/2025 12:57 PM CDT 1. Deep laryngeal penetration to the vocal cords with thin liquids. 2. No evidence transglottic aspiration of examination. This study was performed in collaboration with speech language pathologist Lexi Gaxiola, ANABELL. Please refer to the Speech Pathology procedure note for safe swallow recommendations as well as additional information regarding the oral-pharyngeal swallow function, plan of care, and recommended follow up. FLUOROSCOPY TIME: 1.6 minutes REFERENCE AIR KERMA: 4 mGy. Dictated by: Nuvia Vargas PA-C The radiology attending physician has personally reviewed this study, and had reviewed and/or edited this written report and agrees with it. Electronically signed by: Tien Michaud M.D. Narrative 06/30/2025 12:57 PM CDT EXAMINATION: FLUOROSCOPIC MODIFIED BARIUM SWALLOW 06/30/2025. CLINICAL HISTORY: Dysphagia. COMPARISON: none. TECHNIQUE: Modified barium swallow was performed in conjunction with the speech language pathologist. Thin and thick liquid, pudding and cracker preparations of barium and a barium tablet were administered orally to the patient. Video fluoroscopy was used throughout the examination. FINDINGS: There is hardware within the cervical spine and a partially visualized nasoenteric tube. The oral phase of swallowing is within the normal range. Once the swallow reflex is initiated, pharyngeal contractility appears to be within normal limits. The epiglottic movement is intermittently limited. There is deep laryngeal penetration to the vocal cords with thin liquids (series 6). There is no evidence of transglottic aspiration during this examination. There is no significant residual identified within the vallecula or pyriform sinuses. The barium tablet traverses the cervical esophagus without difficulty. Procedure Note Tien Michaud MD - 06/30/2025 EXAMINATION: FLUOROSCOPIC MODIFIED BARIUM SWALLOW 06/30/2025. CLINICAL HISTORY: Dysphagia. COMPARISON: none. TECHNIQUE: Modified barium swallow was performed in conjunction with the speech language pathologist. Thin and thick liquid, pudding and cracker preparations of barium and a barium tablet were administered orally to the patient. Video fluoroscopy was used throughout the examination. FINDINGS: There is hardware within the cervical spine and a partially visualized nasoenteric tube. The oral phase of swallowing is within the normal range. Once the swallow reflex is initiated, pharyngeal contractility appears to be within normal limits. The epiglottic movement is intermittently limited. There is deep laryngeal penetration to the vocal cords with thin liquids (series 6). There is no evidence of transglottic aspiration during this examination. There is no significant residual identified within the vallecula or pyriform sinuses. The barium tablet traverses the cervical esophagus without difficulty. IMPRESSION: 1. Deep laryngeal penetration to the vocal cords with thin liquids. 2. No evidence transglottic aspiration of examination. This study was performed in collaboration with speech language pathologist Lexi Gaxiola, ANABELL. Please refer to the Speech Pathology procedure note for safe swallow recommendations as well as additional information regarding the oral-pharyngeal swallow function, plan of care, and recommended follow up. FLUOROSCOPY TIME: 1.6 minutes REFERENCE AIR KERMA: 4 mGy. Dictated by: Nuvia Vargas PA-C The radiology attending physician has personally reviewed this study, and had reviewed and/or edited this written report and agrees with it. Electronically signed by: Tien Michaud M.D. Shawn Wong MD IMG FLUOROSCOPY PROCEDURES F inal Result * (ABNORMAL) Calcium, ionized (06/30/2025 8:19 AM CDT) Calcium, Ionized 4.32(L) 4.50 - 5.10 mg/dL Blood 06/30/2025 8:19 AM CDT 06/30/2025 8:29 AM CDT Foster Stover MD LAB BLOOD ORDERABLES Final Result [facility] [address] Department [place] [address] * POCT glucose (06/30/2025 7:56 AM CDT) [facility] Signature Glucose, POC 171 70 - 199 mg/dL Comment: For Glucose values <35 mg/dl when Hematocrit is >60 mg/dl,the test may not accurately detect significant hypoglycemia,and testing in the Laboratory should be considered if clinically indicated. Blood 06/30/2025 7:56 AM CDT 06/30/2025 7:56 AM CDT us Shawn Wong MD LAB POCT ORDERABLES - DEVICE Final Result Performing Organization Address [facility] Co de Phone Number [facility] [address] Department [employer] [place] [address] * eGFR (06/30/2025 4:13 AM CDT) eGFR >90 >=60 mL/min/1. 73 [...] interpretive data was last reviewed 2021. Blood 06/30/2025 4:13 AM CDT 06/30/2025 4:26 AM CDT us Nuvia Byrd DO LAB BLOOD ORDERABLES Final R esult Performing Organization Address [facility]/ZIP Co de Phone Number [facility] [address] [facility] [employer] [place], [place] [id number] * (ABNORMAL) Calcium, ionized (06/30/2025 4:13 AM CDT) Calcium, Ionized 4.33(L) 4.50 - 5.10 mg/dL Blood 06/30/2025 4:13 AM CDT 06/30/2025 4:24 AM CDT us Nuvia Byrd DO LAB BLOOD ORDERABLES Final R esult Performing Organization Address [facility] Co de Phone Number [facility] [address] [facility] [place] [employer] [place], [place] [id number] * (ABNORMAL) CBC without differential (06/30/2025 4:13 AM CDT) WBC 12.44(H) 3.80 - 9.90 K/cumm Hgb 8.8(L) 11.9 - 15.5 g/dL [facility] Hct 28.1(L) 35.6 - 45.5 % [facility] Plt 135(L) 150 - 400 K/cumm [facility] MPV 11.9 9.1 - 12.3 fL [facility] RBC 3.11(L) 3.90 - 5.20 M/cumm [facility] MCV 90.4 81.3 - 96.4 fL [facility] MCH 28.3 27.1 - 33.3 pg [facility] MCHC 31.3(L) 32.3 - 35.7 g/dL [facility] RDW CV 18.6(H) 11.1 - 14.9 % [facility] RDW SD 59.7(H) 35.7 - 48.1 fL [facility] NRBC abs 0.00 0.00 - 0.01 K/cumm [facility] Blood 06/30/2025 4:13 AM CDT 06/30/2025 4:26 AM CDT us Gordo Corrales MD LAB BLOOD ORDERABLES Fi nal Result [facility] [address] Department [employer] [place], [place] [id number] * (ABNORMAL) Renal function panel (06/30/2025 4:13 AM CDT) [facility] Sodium 141 135 - 145 mmol/L Potassium, pl 3.3 3.3 - 4.9 mmol/L [facility] Chloride 100 97 - 110 mmol/L [facility] CO2 34(H) 22 - 32 mmol/L [facility] Anion gap 7 2 - 15 mmol/L [facility] BUN 20 6 - 25 mg/dL [facility] Creatinine 0.58(L) 0.60 - 1.10 mg/dL [facility] Glucose 177 70 - 199 mg/dL [facility] Comment: Interpretive Data Fasting glucose >/= [...] interpretive data was last revised 2022. Calcium 8.3(L) 8.5 - 10.3 mg/dL [facility] Phosphorus, pl 2.4 2.3 - 4.5 mg/dL [facility] Albumin 2.5(L) 3.5 - 5.0 g/dL [facility] Blood 06/30/2025 4:13 AM CDT 06/30/2025 4:26 AM CDT Nuvia Byrd DO LAB BLOOD ORDERABLES Final R esult [facility] [address] Department [place] [address] * POCT glucose (06/29/2025 11:54 PM CDT) [facility] Glucose, POC 176 70 - 199 mg/dL Comment: For Glucose values <35 mg/dl when Hematocrit is >60 mg/dl,the test may not accurately detect significant hypoglycemia,and testing in the Laboratory should be considered if clinically indicated. Blood 06/29/2025 11:5 4 PM CDT 06/29/2025 11:54 PM CDT Shawn Wong MD LAB POCT ORDERABLES - DEVICE Final Result Performing Organization Address [facility] Co de Phone Number [facility] [address] [place] [address] * (ABNORMAL) POCT glucose (06/29/2025 8:48 PM CDT) Glucose, POC 248(H) 70 - 199 mg/dL Comment: For Glucose values <35 mg/dl when Hematocrit is >60 mg/dl,the test may not accurately detect significant hypoglycemia,and testing in the Laboratory should be considered if clinically indicated. Blood 06/29/2025 8:48 PM CDT 06/29/2025 8:48 PM CDT Shawn Wong MD LAB POCT ORDERABLES - DEVICE Final Result Performing Organization Address [facility] Co de Phone Number [facility] [address] [facility] [place] [address] * (ABNORMAL) POCT glucose (06/29/2025 4:16 PM CDT) Glucose, POC 237(H) 70 - 199 mg/dL Comment: For Glucose values <35 mg/dl when Hematocrit is >60 mg/dl,the test may not accurately detect significant hypoglycemia,and testing in the Laboratory should be considered if clinically indicated. Blood 06/29/2025 4:16 PM CDT 06/29/2025 4:16 PM CDT Shawn Wong MD LAB POCT ORDERABLES - DEVICE Final Result Performing Organization Address [facility] Co de Phone Number [facility] [address] [place] [address] * XR Chest 1 View (06/29/2025 3:03 PM CDT) Anatomical Region Laterality Modality Body, Chest N/A Computed Radiogr aphy 06/29/2025 3:46 PM CDT Impressions 06/29/2025 3:46 PM CDT Reverse right total shoulder arthroplasty. No ankle fusion instrumentation. Median sternotomy wires with unchanged discontinuity of the cranial and 3rd cranial-most wires. Interval removal of endotracheal and nasogastric tubes. A nasoenteric tube courses beyond the [id number]. Median sternotomy wires. Mitral valve repair. Left upper extremity PICC with tip at the superior cavoatrial junction. Trace right pleural effusion with associated atelectasis. Interstitial opacification with subtle nodularity in the upper lungs, better appreciated on prior CT. No focal consolidation. Normal heart size. Electronically signed by: Racheal Wilkins MD, MPHS Narrative 06/29/2025 3:46 PM CDT EXAMINATION: XR CHEST 1 VIEW HISTORY: dyspnea COMPARISON: Chest radiographs 06/28/2025, 06/19/2025, and 06/26/2025. CT 06/10/2025. Procedure Note Racheal Wilkins MD - 06/29/2025 EXAMINATION: XR CHEST 1 VIEW HISTORY: dyspnea COMPARISON: Chest radiographs 06/28/2025, 06/19/2025, and 06/26/2025. CT 06/10/2025. IMPRESSION: Reverse right total shoulder arthroplasty. No ankle fusion instrumentation. Median sternotomy wires with unchanged discontinuity of the cranial and 3rd cranial-most wires. Interval removal of endotracheal and nasogastric tubes. A nasoenteric tube courses beyond the [id number]. Median sternotomy wires. Mitral valve repair. Left upper extremity PICC with tip at the superior cavoatrial junction. Trace right pleural effusion with associated atelectasis. Interstitial opacification with subtle nodularity in the upper lungs, better appreciated on prior CT. No focal consolidation. Normal heart size. Electronically signed by: Racheal Wilkins MD, MPHS Gordo Corrales MD IMG XR PROCEDURES Final Result * Phosphorus (06/29/2025 12:58 PM CDT) Phosphorus, pl 3.7 2.3 - 4.5 mg/dL Blood 06/29/2025 12:5 8 PM CDT 06/29/2025 1:10 PM CDT Narrative [facility] - 06/29/2025 2:03 PM CDT Draw 1 hour after supplemental sodium phosphate infusion completed Shawn Wong MD LAB BLOOD ORDERABLES Final R esult Performing Organization Address [facility] Co de Phone Number [facility] [address] Department of Laboratories [place], [place] [id number] * (ABNORMAL) POCT glucose (06/29/2025 12:04 PM CDT) [facility] Glucose, POC 206(H) 70 - 199 mg/dL Comment: For Glucose values <35 mg/dl when Hematocrit is >60 mg/dl,the test may not accurately detect significant hypoglycemia,and testing in the Laboratory should be considered if clinically indicated. Blood 06/29/2025 12:0 4 PM CDT 06/29/2025 12:04 PM CDT Shawn Wong MD LAB POCT ORDERABLES - DEVICE Final Result Performing Organization Address [facility] de Phone Number [facility] [address] [place] [address] * ECG 12 lead (06/29/2025 8:49 AM CDT) 06/29/2025 8:49 AM CDT Narrative [facility] - 06/29/2025 7:46 PM CDT Vent Rate: 104 bpm RR Interval: 576 msec NH Interval: 0 msec QRS Duration: 112 msec QT Interval: 368 msec QTC Interval: 428 msec P-R-T [place]: 0 - -34 - 248 degrees IMPRESSION: ATRIAL FIBRILLATION WITH RAPID VENTRICULAR RESPONSE LEFT AXIS DEVIATION INCOMPLETE RIGHT BUNDLE BRANCH BLOCK ST DEVIATION AND MODERATE T-WAVE ABNORMALITY, CONSIDER ISCHEMIA ABNORMAL ECG Electronically Signed By: Willis Ramirez MD [facility] Tigist Askew ON SITE COORDINATOR ECG ORDERABLES Tawnya l Result Performing Organization Address City/[facility]/ZIP Co de Phone Number [facility] * POCT glucose (06/29/2025 7:51 AM CDT) Pathologist [facility] Glucose, POC 181 70 - 199 mg/dL Comment: For Glucose values <35 mg/dl when Hematocrit is >60 mg/dl,the test may not accurately detect significant hypoglycemia,and testing in the Laboratory should be considered if clinically indicated. Blood 06/29/2025 7:51 AM CDT 06/29/2025 7:51 AM CDT Shawn Wong MD LAB POCT ORDERABLES - DEVICE Final Result Performing Organization Address [facility] Co de Phone Number [facility] [address] Department of [employer] [place], [place] [id number] * (ABNORMAL) Calcium, ionized (06/29/2025 6:36 AM CDT) [facility] Calcium, Ionized 4.41(L) 4.50 - 5.10 mg/dL Blood 06/29/2025 6:36 AM CDT 06/29/2025 6:43 AM CDT Chris Johnston MD LAB BLOOD ORDERABLES Final R esult Performing Organization Address [facility] Co de Phone Number [facility] [address] [place] [address] * eGFR (06/29/2025 4:07 AM CDT) Pathologist [facility] eGFR >90 >=60 mL/min/1. 73 m2 Comment: [...] interpretive data was last reviewed 2021. Blood 06/29/2025 4:07 AM CDT 06/29/2025 4:[address] [facility] LAB BLOOD ORDERABLES Final R esult Performing Organization Address City/[facility]/ZIP Co de Phone Number [facility] [address] Department of [employer] [place], [place] [phone] * (ABNORMAL) Calcium, ionized (06/29/2025 4:07 AM CDT) Calcium, Ionized 4.08(L) 4.50 - 5.10 mg/dL Blood 06/29/2025 4:07 AM CDT 06/29/2025 4:18 AM CDT [facility] BLOOD ORDERABLES Final R esult [facility] [address] [place] [address] * POCT glucose (06/29/2025 4:07 AM CDT) Glucose, POC 192 70 - 199 mg/dL Comment: For Glucose values <35 mg/dl when Hematocrit is >60 mg/dl,the test may not accurately detect significant hypoglycemia,and testing in the Laboratory should be considered if clinically indicated. Blood 06/29/2025 4:07 AM CDT 06/29/2025 4:07 AM CDT Shawn Wong MD LAB POCT ORDERABLES - DEVICE Final Result [facility] [address] [place] [address] * (ABNORMAL) CBC without differential (06/29/2025 4:07 AM CDT) WBC 14.79(H) 3.80 - 9.90 K/cumm Hgb 9.1(L) 11.9 - 15.5 g/dL [facility] Hct 28.6(L) 35.6 - 45.5 % [facility] Plt 142(L) 150 - 400 K/cumm [facility] MPV 12.4(H) 9.1 - 12.3 fL [facility] RBC 3.25(L) 3.90 - 5.20 M/cumm [facility] MCV 88.0 81.3 - 96.4 fL [facility] MCH 28.0 27.1 - 33.3 pg [facility] MCHC 31.8(L) 32.3 - 35.7 g/dL [facility] RDW CV 18.4(H) 11.1 - 14.9 % [facility] RDW SD 57.5(H) 35.7 - 48.1 fL [facility] NRBC abs 0.00 0.00 - 0.01 K/cumm [facility] Blood 06/29/2025 4:07 AM CDT 06/29/2025 4:22 AM CDT Gordo Corrales MD LAB BLOOD ORDERABLES Fi nal Result [facility] [address] Department [employer] [place] [address] * (ABNORMAL) Renal function panel (06/29/2025 4:07 AM CDT) Sodium 139 135 - 145 mmol/L Potassium, pl 3.9 3.3 - 4.9 mmol/L [facility] Chloride 99 97 - 110 mmol/L [facility] CO2 34(H) 22 - 32 mmol/L [facility] Anion gap 6 2 - 15 mmol/L [facility] BUN 16 6 - 25 mg/dL [facility] Creatinine 0.68 0.60 - 1.10 mg/dL [facility] Glucose 183 70 - 199 mg/dL [facility] Comment: Interpretive Data Fasting glucose >/= [...] interpretive data was last revised 2022. Calcium 8.3(L) 8.5 - 10.3 mg/dL [facility] Phosphorus, pl 1.8(L) 2.3 - 4.5 mg/dL [facility] Albumin 2.3(L) 3.5 - 5.0 g/dL [facility] Blood 06/29/2025 4:07 AM CDT 06/29/2025 4:21 AM CDT us Nuvia Byrd DO LAB BLOOD ORDERABLES Final R esult Performing Organization Address City/[facility]/ZIP Co de Phone Number [facility] [address] Department [place] [address] * Potassium (06/28/2025 11:39 PM CDT) [facility] Potassium, pl 3.4 3.3 - 4.9 mmol/L Blood 06/28/2025 11:3 9 PM CDT 06/28/2025 11:48 PM CDT us Chris Jonhston MD LAB BLOOD ORDERABLES Final R esult Performing Organization Address City/[facility]/ZIP Co de Phone Number [facility] [address] [facility] [place] [address] * (ABNORMAL) Potassium (06/28/2025 8:33 PM CDT) Potassium, pl 3.1(L) 3.3 - 4.9 mmol/L Blood 06/28/2025 8:33 PM CDT 06/28/2025 8:36 PM CDT Chris Johnston MD LAB BLOOD ORDERABLES Final R esult Performing Organization Address [facility] Co de Phone Number [facility] [address] [facility] [place] [address] * (ABNORMAL) POCT glucose (06/28/2025 8:32 PM CDT) Glucose, POC 243(H) 70 - 199 mg/dL Comment: For Glucose values <35 mg/dl when Hematocrit is >60 mg/dl,the test may not accurately detect significant hypoglycemia,and testing in the Laboratory should be considered if clinically indicated. Blood 06/28/2025 8:32 PM CDT 06/28/2025 8:32 PM CDT Shawn Wong MD LAB POCT ORDERABLES - DEVICE Final Result Performing Organization Address [facility] Co de Phone Number [facility] [address] [facility] [place] [address] * (ABNORMAL) POCT glucose (06/28/2025 4:05 PM CDT) Glucose, POC 216(H) 70 - 199 mg/dL Comment: For Glucose values <35 mg/dl when Hematocrit is >60 mg/dl,the test may not accurately detect significant hypoglycemia,and testing in the Laboratory should be considered if clinically indicated. Blood 06/28/2025 4:05 PM CDT 06/28/2025 4:05 PM CDT Shawn Wong MD LAB POCT ORDERABLES - DEVICE Final Result Performing Organization Address City/[facility]/ZIP Co de Phone Number [facility] [address] [facility] [place] [address] * (ABNORMAL) Potassium (06/28/2025 4:04 PM CDT) Potassium, pl 3.1(L) 3.3 - 4.9 mmol/L Blood 06/28/2025 4:04 PM CDT 06/28/2025 4:46 PM CDT Chris Johnston MD LAB BLOOD ORDERABLES Final R esult Performing Organization Address [facility] Co de Phone Number [facility] [address] [facility] [place] [address] * (ABNORMAL) Potassium (06/28/2025 11:53 AM CDT) Potassium, pl 2.9(L) 3.3 - 4.9 mmol/L Blood 06/28/2025 11:5 3 AM CDT 06/28/2025 12:02 PM CDT Chris Johnston MD LAB BLOOD ORDERABLES Final R esult Performing Organization Address [facility]/ZIP Co de Phone Number [facility] [address] [facility] [place] [address] * Phosphorus (06/28/2025 11:53 AM CDT) Phosphorus, pl 3.8 2.3 - 4.5 mg/dL Blood 06/28/2025 11:5 3 AM CDT 06/28/2025 12:02 PM CDT Shawn Wong MD LAB BLOOD ORDERABLES Final R esult Performing Organization Address City/[facility]/ZIP Co de Phone Number [facility] [address] Department [place] [address] * (ABNORMAL) POCT glucose (06/28/2025 11:49 AM CDT) Glucose, POC 228(H) 70 - 199 mg/dL Comment: For Glucose values <35 mg/dl when Hematocrit is >60 mg/dl,the test may not accurately detect significant hypoglycemia,and testing in the Laboratory should be considered if clinically indicated. 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 Status post cardiac valve prosthesis. Partial visualization of right shoulder arthroplasty. Left PICC terminates over the cavoatrial junction. Partial visualization of cervical spine fusion hardware. Endotracheal tube terminates approximately 3.8 cm above the salbador. Enteric tubes descend below the diaphragm. Tip of the catheter is not included on the image. Cardiomediastinal silhouette stable. Trachea midline. Pulmonary vasculature stable. Right upper lobe small granuloma, unchanged. Mild hazy interstitial opacities in both lungs, unchanged. Probable tiny pleural effusions. No pneumothorax. Electronically signed by: Bhupendra Flores M.D. Narrative 06/28/2025 11:39 AM CDT XR CHEST 1 VIEW: 06/28/2025 10:35 AM CLINICAL INDICATION: dyspnea. COMPARISON: Chest radiograph dated 06/27/2025. Procedure Note Bhupendra Flores MD - 06/28/2025 XR CHEST 1 VIEW: 06/28/2025 10:35 AM CLINICAL INDICATION: dyspnea. COMPARISON: Chest radiograph dated 06/27/2025. 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 Status post cardiac valve prosthesis. Partial visualization of right shoulder arthroplasty. Left PICC terminates over the cavoatrial junction. Partial visualization of cervical spine fusion hardware. Endotracheal tube terminates approximately 3.8 cm above the salbador. Enteric tubes descend below the diaphragm. Tip of the catheter is not included on the image. Cardiomediastinal silhouette stable. Trachea midline. Pulmonary vasculature stable. Right upper lobe small granuloma, unchanged. Mild hazy interstitial opacities in both lungs, unchanged. Probable tiny pleural effusions. No pneumothorax. Electronically signed by: Bhupendra Flores M.D. Gordo Corrales MD IMG XR PROCEDURES Final Result * Calcium, ionized (06/28/2025 10:13 AM CDT) Calcium, Ionized 4.50 4.50 - 5.10 mg/dL Blood 06/28/2025 10:1 3 AM CDT 06/28/2025 10:20 AM CDT Narrative [facility] - 06/28/2025 10:22 AM CDT Obtain 1 hour after calcium gluconate infusion completed. us Shawn Wong MD LAB BLOOD ORDERABLES Final R esult [facility] [address] Department [place] [address] * (ABNORMAL) POCT glucose (06/28/2025 9:15 AM CDT) Glucose, POC 335(H) 70 - 199 mg/dL Comment: For Glucose values <35 mg/dl when Hematocrit is >60 mg/dl,the test may not accurately detect significant hypoglycemia,and testing in the Laboratory should be considered if clinically indicated. Blood 06/28/2025 9:15 AM CDT 06/28/2025 9:15 AM CDT us Shawn Wong MD LAB POCT ORDERABLES - DEVICE Final Result Performing Organization Address City/[facility]/ZIP Co de Phone Number [facility] [address] [facility] [employer] [place], [place] [id number] * (ABNORMAL) Potassium (06/28/2025 8:44 AM CDT) Potassium, pl 2.8(L) 3.3 - 4.9 mmol/L Blood 06/28/2025 8:44 AM CDT 06/28/2025 9:52 AM CDT us Chris Johnston MD LAB BLOOD ORDERABLES Final R esult Performing Organization Address [facility] Co de Phone Number [facility] [address] Department [employer] [place], [place] [phone] * (ABNORMAL) POCT glucose (06/28/2025 8:30 AM CDT) Glucose, POC 325(H) 70 - 199 mg/dL Comment: For Glucose values <35 mg/dl when Hematocrit is >60 mg/dl,the test may not accurately detect significant hypoglycemia,and testing in the Laboratory should be considered if clinically indicated. Blood 06/28/2025 8:30 AM CDT 06/28/2025 8:30 AM CDT us Shawn Wong MD LAB POCT ORDERABLES - DEVICE Final Result Performing Organization Address [facility] Co de Phone Number [facility] [address] Department of [employer] [place], [place] [phone] * (ABNORMAL) POCT glucose (06/28/2025 7:34 AM CDT) Glucose, POC 313(H) 70 - 199 mg/dL Comment: For Glucose values <35 mg/dl when Hematocrit is >60 mg/dl,the test may not accurately detect significant hypoglycemia,and testing in the Laboratory should be considered if clinically indicated. Blood 06/28/2025 7:34 AM CDT 06/28/2025 7:34 AM CDT Shawn Wong MD LAB POCT ORDERABLES - DEVICE Final Result Performing Organization Address [facility] Co de Phone Number [facility] [address] [place] [address] * POCT glucose (06/28/2025 6:10 AM CDT) Glucose, POC 192 70 - 199 mg/dL Comment: For Glucose values <35 mg/dl when Hematocrit is >60 mg/dl,the test may not accurately detect significant hypoglycemia,and testing in the Laboratory should be considered if clinically indicated. Blood 06/28/2025 6:10 AM CDT 06/28/2025 6:10 AM CDT Shawn Wong MD LAB POCT ORDERABLES - DEVICE Final Result Performing Organization Address [facility] Co de Phone Number [facility] [address] Department [place] [address] * eGFR (06/28/2025 3:23 AM CDT) [facility] eGFR >90 >=60 mL/min/1. 73 m2 Comment: [...] interpretive data was last reviewed 2021. Blood 06/28/2025 3:23 AM CDT 06/28/2025 3:35 AM CDT [facility] BLOOD ORDERABLES Final R esult Performing Organization Address City/[facility]/ZIP Co de Phone Number [facility] [address] [facility] [employer] [place], [place] [id number] * (ABNORMAL) Calcium, ionized (06/28/2025 3:23 AM CDT) Calcium, Ionized 4.19(L) 4.50 - 5.10 mg/dL Blood 06/28/2025 3:23 AM CDT 06/28/2025 3:29 AM CDT [facility] BLOOD ORDERABLES Final R esult [facility] [address] [facility] [employer] [place], [place] [id number] * (ABNORMAL) CBC without differential (06/28/2025 3:23 AM CDT) WBC 17.41(H) 3.80 - 9.90 K/cumm Hgb 8.6(L) 11.9 - 15.5 g/dL [facility] Hct 27.2(L) 35.6 - 45.5 % [facility] Plt 181 150 - 400 K/cumm [facility] MPV 12.1 9.1 - 12.3 fL [facility] RBC 3.07(L) 3.90 - 5.20 M/cumm [facility] MCV 88.6 81.3 - 96.4 fL [facility] MCH 28.0 27.1 - 33.3 pg [facility] MCHC 31.6(L) 32.3 - 35.7 g/dL [facility] RDW CV 18.2(H) 11.1 - 14.9 % [facility] RDW SD 55.8(H) 35.7 - 48.1 fL [facility] NRBC abs 0.00 0.00 - 0.01 K/cumm [facility] Blood 06/28/2025 3:23 AM CDT 06/28/2025 3:35 AM CDT us Gordo Corrales MD LAB BLOOD ORDERABLES Fi nal Result [facility] [address] Department [place] [address] * (ABNORMAL) Renal function panel (06/28/2025 3:23 AM CDT) Sodium 139 135 - 145 mmol/L Potassium, pl 6.6(C) 3.3 - 4.9 mmol/L [facility] Comment:Critical result call ed to and read back by Bettina Aguilar RN on 06/28/25 0425 to [id number] Chloride 110 97 - 110 mmol/L [facility] CO2 23 22 - 32 mmol/L [facility] Anion gap 6 2 - 15 mmol/L [facility] BUN 16 6 - 25 mg/dL [facility] Creatinine 0.66 0.60 - 1.10 mg/dL [facility] Glucose 192 70 - 199 mg/dL [facility] Comment: Interpretive Data Fasting glucose >/= [...] interpretive data was last revised 2022. Calcium 6.7(L) 8.5 - 10.3 mg/dL [facility] Phosphorus, pl 1.8(L) 2.3 - 4.5 mg/dL [facility] Albumin 2.1(L) 3.5 - 5.0 g/dL [facility] Blood 06/28/2025 3:23 AM CDT 06/28/2025 3:35 AM CDT Nuvia Byrd LAB BLOOD ORDERABLES Final R esult Performing Organization Address [facility]/ZIP Co de Phone Number [facility] [address] [place] [address] * (ABNORMAL) Calcium, ionized (06/27/2025 8:40 PM CDT) Calcium, Ionized 5.12(H) 4.50 - 5.10 mg/dL Blood 06/27/2025 8:40 PM CDT 06/27/2025 8:42 PM CDT Shawn Wong MD LAB BLOOD ORDERABLES Final R esult Performing Organization Address [facility] Co de Phone Number [facility] [address] Department of [employer] [place], [place] [phone] * POCT glucose (06/27/2025 7:22 PM CDT) Glucose, POC 192 70 - 199 mg/dL Comment: For Glucose values <35 mg/dl when Hematocrit is >60 mg/dl,the test may not accurately detect significant hypoglycemia,and testing in the Laboratory should be considered if clinically indicated. Blood 06/27/2025 7:22 PM CDT 06/27/2025 7:22 PM CDT Shawn Wong MD LAB POCT ORDERABLES - DEVICE Final Result Performing Organization Address [facility] Co de Phone Number [facility] [address] Department [employer] [place], [place] [phone] * (ABNORMAL) Calcium, ionized (06/27/2025 5:46 PM CDT) Calcium, Ionized 4.27(L) 4.50 - 5.10 mg/dL Blood 06/27/2025 5:46 PM CDT 06/27/2025 5:48 PM CDT Shawn Wong MD LAB BLOOD ORDERABLES Final R esult Performing Organization Address [facility] Co de Phone Number [facility] [address] Department [place] [address] * POCT glucose (06/27/2025 5:27 PM CDT) Glucose, POC 192 70 - 199 mg/dL Comment: For Glucose values <35 mg/dl when Hematocrit is >60 mg/dl,the test may not accurately detect significant hypoglycemia,and testing in the Laboratory should be considered if clinically indicated. Blood 06/27/2025 5:27 PM CDT 06/27/2025 5:27 PM CDT Shawn Wong MD LAB POCT ORDERABLES - DEVICE Final Result Performing Organization Address [facility] Co de Phone Number [facility] [address] Department [place] [address] * XR Kub (06/27/2025 4:25 PM CDT) Anatomical Region Laterality Modality Body, Abdomen N/A Computed Radiogr aphy 06/27/2025 4:41 PM CDT Impressions 06/27/2025 4:41 PM CDT FINDINGS/IMPRESSION: Weighted feeding tube coils in the gastric fundus with tip terminating near the gastroesophageal junction, angled superiorly. Repositioning is recommended. Enteric tube with tip terminating in the stomach and proximal sidehole near the gastroesophageal junction. Nonobstructive bowel gas pattern in the imaged upper abdomen. No definite free intraperitoneal air in the imaged portion. Vascular calcifications. Degenerative changes in the spine. Median sternotomy wires including fractured wires similar compared to the prior exam. Mitral valve repair. Coronary stent material. Electronically signed by: Kendrick Jenkins M.D. Narrative 06/27/2025 4:41 PM CDT EXAM: XR KUB INDICATION: dobhoff replaced COMPARISON: Radiograph 06/27/2025 at 11:04 AM Procedure Note Kendrick Jenkins MD - 06/27/2025 EXAM: XR KUB INDICATION: dobhoff replaced COMPARISON: Radiograph 06/27/2025 at 11:04 AM IMPRESSION: FINDINGS/IMPRESSION: Weighted feeding tube coils in the gastric fundus with tip terminating near the gastroesophageal junction, angled superiorly. Repositioning is recommended. Enteric tube with tip terminating in the stomach and proximal sidehole near the gastroesophageal junction. Nonobstructive bowel gas pattern in the imaged upper abdomen. No definite free intraperitoneal air in the imaged portion. Vascular calcifications. Degenerative changes in the spine. Median sternotomy wires including fractured wires similar compared to the prior exam. Mitral valve repair. Coronary stent material. Electronically signed by: Kendrick Jenkins M.D. us Shawn Wong MD IMG XR PROCEDURES Final Resu lt * (ABNORMAL) Calcium, ionized (06/27/2025 3:06 PM CDT) Calcium, Ionized 4.32(L) 4.50 - 5.10 mg/dL Blood 06/27/2025 3:06 PM CDT 06/27/2025 3:08 PM CDT Shawn Wong MD LAB BLOOD ORDERABLES Final R esult [facility] [address] Department [place] [address] * (ABNORMAL) Hemoglobin and hematocrit (06/27/2025 3:06 PM CDT) Hgb 10.7(L) 11.9 - 15.5 g/dL Hct 33.3(L) 35.6 - 45.5 % [facility] Blood 06/27/2025 3:06 PM CDT 06/27/2025 3:12 PM CDT us Shawn Wong MD LAB BLOOD ORDERABLES Final R esult [facility] [address] Department [place] [address] * XR Chest 1 Vw (06/27/2025 2:23 PM CDT) Anatomical Region Laterality Modality Body, Chest N/A Computed Radiogr aphy 06/27/2025 2:49 PM CDT Impressions 06/27/2025 3:11 PM CDT FINDINGS/IMPRESSION: Patient is status post previous sternotomy with multiple discontinuous sternotomy wires which is unchanged. Valve annuloplasty over the heart which is unchanged. New left peripheral venous catheter tip in the superior cavoatrial junction. Gastric and feeding tube tip and side-port in left upper quadrant. 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 No pleural effusion or pneumothorax. Cardiac and mediastinal contours are within normal limits. Dictated by: Long Howell MD The radiology attending physician has personally reviewed this study, and had reviewed and/or edited this written report and agrees with it. Electronically signed by: Chris Villeda M.D. Narrative 06/27/2025 3:11 PM CDT EXAMINATION: XR CHEST 1 VIEW HISTORY: line placement COMPARISON: Radiograph 06/26/2025 Procedure Note Chris Villeda MD - 06/27/2025 EXAMINATION: XR CHEST 1 VIEW HISTORY: line placement COMPARISON: Radiograph 06/26/2025 IMPRESSION: FINDINGS/IMPRESSION: Patient is status post previous sternotomy with multiple discontinuous sternotomy wires which is unchanged. Valve annuloplasty over the heart which is unchanged. New left peripheral venous catheter tip in the superior cavoatrial junction. Gastric and feeding tube tip and side-port in left upper quadrant. 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 No pleural effusion or pneumothorax. Cardiac and mediastinal contours are within normal limits. Dictated by: Long Howell MD The radiology attending physician has personally reviewed this study, and had reviewed and/or edited this written report and agrees with it. Electronically signed by: Chris Villeda M.D. Bobo العراقي IMG XR PROCEDURES Final Result * GENERAL (06/27/2025 2:17 PM CDT) Narrative Bobo Roque PA - 06/27/2025 2:17 PM CDT Bobo Roque PA 06/27/2025 2:19 PM General - Inpatient Date/Time: 06/27/2025 2:17 PM Performed by: Bobo Roque PA Authorized by: Bobo Roque PA [place] Protocol: RN Notified of Procedure: yes Informed consent: Risks, benefits, alternatives discussed, patient/client support representative/guardian agrees and accepts and unable to obtain due to emergent status Patient's stated name/ matches armband: Yes and patient unable to verbalize - armband matched to name and within medical record Allergies confirmed: yes Consent form signed, dated, timed; matches correct patient, intended procedure and site: Yes and no consent form due to emergent status Supplies, devices and special equipment are available: yes Site/side marked: yes Immediately prior to the procedure a time out was called: a verbal verification by the procedure participants confirmed correct patient identity, correct site/side marked and visible (if applicable); agreement on procedure to be done; and correct patient positioning Anesthesia (see MAR for exact dosage) Anesthesia method: Local infiltration Local anesthetic: Lidocaine 1% Hand hygiene performed: Yes PPE (including eye protection) in place as appropriate to the procedure: Yes Preparation: Patient was prepped using appropriate disinfectant and draped using sterile technique as needed Procedure details: Time out performed at bedside prior to procedure. Triple lumen PICC cut 41cm and placed in the LUE via ultrasound guidance. All ports aspirated and flushed. Patient tolerance: Patient tolerated the procedure well with no immediate complications and patient tolerated the procedure well with no immediate complications Post Procedure Debrief: All guidewires, needles, sponges or other items are accounted for: yes Any special post procedure monitoring, testing or other considerations: yes (enter/request order) All specimens identified, labeled and matched to patient identification: n/a Bobo العراقي IN CLINIC/BEDSIDE ORDERABLES F inal Result * (ABNORMAL) Calcium, ionized (06/27/2025 12:41 PM CDT) Calcium, Ionized 3.65(L) 4.50 - 5.10 mg/dL Blood 06/27/2025 12:4 1 PM CDT 06/27/2025 12:43 PM CDT Shawn Wong MD LAB BLOOD ORDERABLES Final R esult Performing Organization Address [facility]/ZIP Co de Phone Number [facility] [address] Department [place] [address] * POCT glucose (06/27/2025 11:26 AM CDT) Glucose, POC 183 70 - 199 mg/dL Comment: For Glucose values <35 mg/dl when Hematocrit is >60 mg/dl,the test may not accurately detect significant hypoglycemia,and testing in the Laboratory should be considered if clinically indicated. Blood 06/27/2025 11:2 6 AM CDT 06/27/2025 11:26 AM CDT us Shawn Wong MD LAB POCT ORDERABLES - DEVICE Final Result Performing Organization Address [facility] Co de Phone Number [facility] [address] Department [place] [address] * XR Kub (06/27/2025 11:21 AM CDT) Anatomical Region Laterality Modality Body, Abdomen N/A Computed Radiogr aphy 06/27/2025 11:3 2 AM CDT Impressions 06/27/2025 11:32 AM CDT There is an enteric tube and a gastric tube both with similar positions of the tips of the 2 tubes, both projecting at proximal body of the stomach. Side-port of gastric tube is in the gastric cardia just past the gastroesophageal junction. Endotracheal tube tip is in the mid trachea. Median sternotomy wires with some chronic fractures of some of the wires are noted along with a prosthetic heart valve. Electronically signed by: Chris Villeda M.D. Narrative 06/27/2025 11:32 AM CDT EXAMINATION: XR KUB HISTORY: Tube placement Procedure Note Chirs Villeda MD - 06/27/2025 EXAMINATION: XR KUB HISTORY: Tube placement IMPRESSION: There is an enteric tube and a gastric tube both with similar positions of the tips of the 2 tubes, both projecting at proximal body of the stomach. Side-port of gastric tube is in the gastric cardia just past the gastroesophageal junction. Endotracheal tube tip is in the mid trachea. Median sternotomy wires with some chronic fractures of some of the wires are noted along with a prosthetic heart valve. Electronically signed by: Chris Villeda M.D. Shawn Wong MD IMG XR PROCEDURES Final Resu lt * (ABNORMAL) Calcium, ionized (06/27/2025 9:28 AM CDT) Calcium, Ionized 3.53(L) 4.50 - 5.10 mg/dL Blood 06/27/2025 9:28 AM CDT 06/27/2025 9:33 AM CDT Shawn Wong MD LAB BLOOD ORDERABLES Final R esult Performing Organization Address [facility] Co de Phone Number [facility] [address] Department [place] [address] * POCT glucose (06/27/2025 7:10 AM CDT) Glucose, POC 174 70 - 199 mg/dL Comment: For Glucose values <35 mg/dl when Hematocrit is >60 mg/dl,the test may not accurately detect significant hypoglycemia,and testing in the Laboratory should be considered if clinically indicated. Blood 06/27/2025 7:10 AM CDT 06/27/2025 7:10 AM CDT Shawn Wong MD LAB POCT ORDERABLES - DEVICE Final Result Performing Organization Address [facility] Co de Phone Number [facility] [address] Department [place] [address] * eGFR (06/27/2025 5:33 AM CDT) Pathologist [facility] eGFR 68 >=60 mL/min/1. 73 m2 Comment: Interpretive Data [...] interpretive data was last reviewed 2021. Blood 06/27/2025 5:33 AM CDT 06/27/2025 5:38 AM CDT us Nuvia Byrd DO LAB BLOOD ORDERABLES Final R esult [facility] [address] Department [place] [address] * (ABNORMAL) CBC without differential (06/27/2025 5:33 AM CDT) Pathologist [facility] WBC 20.77(H) 3.80 - 9.90 K/cumm Hgb 11.3(L) 11.9 - 15.5 g/dL [facility] Hct 35.2(L) 35.6 - 45.5 % [facility] Plt 328 150 - 400 K/cumm [facility] MPV 12.0 9.1 - 12.3 fL [facility] RBC 4.06 3.90 - 5.20 M/cumm [facility] MCV 86.7 81.3 - 96.4 fL [facility] MCH 27.8 27.1 - 33.3 pg [facility] MCHC 32.1(L) 32.3 - 35.7 g/dL [facility] RDW CV 18.0(H) 11.1 - 14.9 % [facility] RDW SD 55.5(H) 35.7 - 48.1 fL [facility] NRBC abs 0.00 0.00 - 0.01 K/cumm [facility] Blood 06/27/2025 5:33 AM CDT 06/27/2025 5:38 AM CDT us Gordo Corrales MD LAB BLOOD ORDERABLES Fi nal Result [facility] [address] Department [place] [address] * (ABNORMAL) Renal function panel (06/27/2025 5:33 AM CDT) Sodium 138 135 - 145 mmol/L Potassium, pl 4.6 3.3 - 4.9 mmol/L [facility] Chloride 93(L) 97 - 110 mmol/L [facility] CO2 30 22 - 32 mmol/L [facility] Anion gap 15 2 - 15 mmol/L [facility] BUN 22 6 - 25 mg/dL [facility] Creatinine 0.90 0.60 - 1.10 mg/dL [facility] Glucose 197 70 - 199 mg/dL [facility] Comment: Interpretive Data Fasting glucose >/= [...] interpretive data was last revised 2022. Calcium 8.1(L) 8.5 - 10.3 mg/dL [facility] Phosphorus, pl 3.8 2.3 - 4.5 mg/dL [facility] Albumin 3.2(L) 3.5 - 5.0 g/dL [facility] Blood 06/27/2025 5:33 AM CDT 06/27/2025 5:38 AM CDT [facility] BLOOD ORDERABLES Final R esult Performing Organization Address City/[facility] Co de Phone Number [facility] [address] [facility] [employer] [place], [place] [id number] * (ABNORMAL) Calcium, ionized (06/27/2025 5:16 AM CDT) Calcium, Ionized 3.96(L) 4.50 - 5.10 mg/dL Blood 06/27/2025 5:16 AM CDT 06/27/2025 5:32 AM CDT [facility] BLOOD ORDERABLES Final R esult Performing Organization Address [facility] de Phone Number [facility] [address] [employer] [place], [place] [id number] * (ABNORMAL) Blood gas, arterial (06/26/2025 8:46 PM CDT) pH, Art 7.51(H) 7.35 - 7.45 PCO2, Arterial 44 35 - 45 mmHg [facility] PO2, Arterial 286(H) 83 - 108 mmHg [facility] HCO3 Art (Calculated) 35(H) 20 - 30 mmol/L [facility] BE, art 11 mmol/L [facility] Comment: Interpretive Data No Reference Range Established Current Interpretive Data was last revised on 2017 O2 Sat Art (Calculated) 100(H) 94 - 98 % [facility] Blood 06/26/2025 8:46 PM CDT 06/26/2025 8:50 PM CDT Chris Johnston MD LAB BLOOD ORDERABLES Final R esult Performing Organization Address [facility] de Phone Number [facility] [address] Department of Laboratories [place], [place] [id number] * (ABNORMAL) Triglycerides (06/26/2025 8:37 PM CDT) Triglycerides 173(H) <=149 mg/dL Comment: Interpretive Data Ages < or = 9 years Acceptable: <75 mg/dL Borderline high: 75-99 mg/dL High: >or= 100 mg/dL Ages 10 to 20 years Acceptable: <90 mg/dL Borderline high: 90-129 mg/dL High: >or= 130 mg/dL Ages > or = 20 years Desirable: <150 mg/dL Borderline high: 150-199 mg/dL High: 200-499 mg/dL Very high: >or= 499 mg/dL Literature References: 1. Expert Panel on Integrated Guidelines for Cardiovascular Health and Risk Reduction in Children and Adolescents. Pediatrics 2011;128:S213 2. NCEP Expert Panel. Circulation 2004;110:227 Current Interpretive Data was last revised on 2018. Blood 06/26/2025 8:37 PM CDT 06/26/2025 8:53 PM CDT Narrative [facility] - 06/26/2025 9:18 PM CDT While on propofol infusion. Chris Johnston MD LAB BLOOD ORDERABLES Final R esult Performing Organization Address [facility] Co de Phone Number [facility] [address] Department [place] [address] * XR Chest 1 Vw (06/26/2025 8:30 PM CDT) Anatomical Region Laterality Modality Body, Chest N/A Computed Radiogr aphy 06/27/2025 11:3 7 AM CDT Impressions 06/27/2025 11:37 AM CDT FINDINGS/IMPRESSION: CHEST SINGLE VIEW 06/26/2025 AT 8:10 PM: Endotracheal tube with tip approximately 2.9 cm above the salbador, slightly angled to the right. Median sternotomy wires with similar mildly appearing fracture wires. Mediastinal surgical clips. Mitral valve repair. No pleural effusion or pneumothorax. Slight increase in biapical airspace opacities with decreasing bibasilar atelectasis. Coarse bilateral lung interstitial opacities. Heart is normal in size. Coronary stent material. No new bony abnormality. Partially imaged right shoulder arthroplasty hardware. CHEST SINGLE VIEW 06/26/2025 AT 8:18 PM: Interval placement of an enteric tube with tip terminating in the stomach and proximal sidehole near the gastroesophageal junction. Otherwise unchanged exam compared to the immediate prior. Of note lung apices are excluded from the [id number]. Electronically signed by: Kendrick Jenkins M.D. Narrative 06/27/2025 11:37 AM CDT EXAM: XR CHEST 1 VIEW INDICATION: For endotracheal tube position For endotracheal tube position COMPARISON: Chest radiograph 06/24/2025 Procedure Note Kendrick Jenkins MD - 06/27/2025 EXAM: XR CHEST 1 VIEW INDICATION: For endotracheal tube position For endotracheal tube position COMPARISON: Chest radiograph 06/24/2025 IMPRESSION: FINDINGS/IMPRESSION: CHEST SINGLE VIEW 06/26/2025 AT 8:10 PM: Endotracheal tube with tip approximately 2.9 cm above the salbador, slightly angled to the right. Median sternotomy wires with similar mildly appearing fracture wires. Mediastinal surgical clips. Mitral valve repair. No pleural effusion or pneumothorax. Slight increase in biapical airspace opacities with decreasing bibasilar atelectasis. Coarse bilateral lung interstitial opacities. Heart is normal in size. Coronary stent material. No new bony abnormality. Partially imaged right shoulder arthroplasty hardware. CHEST SINGLE VIEW 06/26/2025 AT 8:18 PM: Interval placement of an enteric tube with tip terminating in the stomach and proximal sidehole near the gastroesophageal junction. Otherwise unchanged exam compared to the immediate prior. Of note lung apices are excluded from the [id number]. Electronically signed by: Kendrick Jenkins M.D. us Chris Johnston MD IMG XR PROCEDURES Final Resu lt * X-ray chest 1 view (06/26/2025 8:29 PM CDT) Anatomical Region Laterality Modality Body, Chest N/A Computed Radiogr aphy 06/27/2025 11:3 7 AM CDT Impressions 06/27/2025 11:37 AM CDT FINDINGS/IMPRESSION: CHEST SINGLE VIEW 06/26/2025 AT 8:10 PM: Endotracheal tube with tip approximately 2.9 cm above the salbador, slightly angled to the right. Median sternotomy wires with similar mildly appearing fracture wires. Mediastinal surgical clips. Mitral valve repair. No pleural effusion or pneumothorax. Slight increase in biapical airspace opacities with decreasing bibasilar atelectasis. Coarse bilateral lung interstitial opacities. Heart is normal in size. Coronary stent material. No new bony abnormality. Partially imaged right shoulder arthroplasty hardware. CHEST SINGLE VIEW 06/26/2025 AT 8:18 PM: Interval placement of an enteric tube with tip terminating in the stomach and proximal sidehole near the gastroesophageal junction. Otherwise unchanged exam compared to the immediate prior. Of note lung apices are excluded from the [id number]. Electronically signed by: Kendrick Jenkins M.D. Narrative 06/27/2025 11:37 AM CDT EXAM: XR CHEST 1 VIEW INDICATION: For endotracheal tube position For endotracheal tube position COMPARISON: Chest radiograph 06/24/2025 Procedure Note Kendrick Jenkins MD - 06/27/2025 EXAM: XR CHEST 1 VIEW INDICATION: For endotracheal tube position For endotracheal tube position COMPARISON: Chest radiograph 06/24/2025 IMPRESSION: FINDINGS/IMPRESSION: CHEST SINGLE VIEW 06/26/2025 AT 8:10 PM: Endotracheal tube with tip approximately 2.9 cm above the salbador, slightly angled to the right. Median sternotomy wires with similar mildly appearing fracture wires. Mediastinal surgical clips. Mitral valve repair. No pleural effusion or pneumothorax. Slight increase in biapical airspace opacities with decreasing bibasilar atelectasis. Coarse bilateral lung interstitial opacities. Heart is normal in size. Coronary stent material. No new bony abnormality. Partially imaged right shoulder arthroplasty hardware. CHEST SINGLE VIEW 06/26/2025 AT 8:18 PM: Interval placement of an enteric tube with tip terminating in the stomach and proximal sidehole near the gastroesophageal junction. Otherwise unchanged exam compared to the immediate prior. Of note lung apices are excluded from the [id number]. Electronically signed by: Kendrick Jenkins M.D. Chris Johnston MD IMG XR PROCEDURES Final Resu lt * POCT glucose (06/26/2025 8:26 PM CDT) [facility] Glucose, POC 198 70 - 199 mg/dL Comment: For Glucose values <35 mg/dl when Hematocrit is >60 mg/dl,the test may not accurately detect significant hypoglycemia,and testing in the Laboratory should be considered if clinically indicated. Blood 06/26/2025 8:26 PM CDT 06/26/2025 8:26 PM CDT Shawn Wong MD LAB POCT ORDERABLES - DEVICE Final Result Performing Organization Address City/[facility]/ZIP Co de Phone Number [facility] [address] Department [place] [address] * [place] Fluoroscopy < 1 Hour (06/26/2025 7:27 PM CDT) Narrative [facility] - 06/26/2025 7:29 PM CDT The images from this study are not interpreted by Radiology. Please refer to the physician's procedure / OR operative note. Sadia Renae MD IMG FLUOROSCOPY PROCEDURE S Final Result Performing Organization Address [facility]/ZIP Co de Phone Number [facility] * XR Spine Cervical 2 or 3 Views (06/26/2025 7:27 PM CDT) Anatomical Region Laterality Modality Spine N/A Computed Radiogr aphy 06/27/2025 9:57 AM CDT Impressions 06/27/2025 9:57 AM CDT Multiple intraoperative radiographs of the cervical spine were obtained. Initial image demonstrates anterior cervical fusion hardware at C5-6. Subsequent images demonstrate placement of posterior fusion hardware at C2-C5. The visualized hardware is intact Electronically signed by: Bhupendra Flores M.D. Narrative 06/27/2025 9:57 AM CDT XR SPINE CERVICAL 2 OR 3 VIEWS: 06/26/2025 1:45 PM CLINICAL INDICATION: C2-6 Decompressive Laminectomy, Posterior Spinal Fusion with Instrumentation, Globus Navigation. COMPARISON: Radiographs of the cervical spine dated 05/07/2025. Procedure Note Bhupendra Flores MD - 06/27/2025 XR SPINE CERVICAL 2 OR 3 VIEWS: 06/26/2025 1:45 PM CLINICAL INDICATION: C2-6 Decompressive Laminectomy, Posterior Spinal Fusion with Instrumentation, Globus Navigation. COMPARISON: Radiographs of the cervical spine dated 05/07/2025. IMPRESSION: Multiple intraoperative radiographs of the cervical spine were obtained. Initial image demonstrates anterior cervical fusion hardware at C5-6. Subsequent images demonstrate placement of posterior fusion hardware at C2-C5. The visualized hardware is intact Electronically signed by: Bhupendra Flores M.D. Sadia Renae MD IMG XR PROCEDURES Final R esult * NH AN ELECTIVE ENDOTRACHEAL AIRWAY, NH AN PROCEDURE PLACEHOLDER (06/26/2025 4:27 PM CDT) Narrative Jessie Landry CRNA - 06/26/2025 4:27 PM CDT Jessie Landry CRNA 06/26/2025 4:28 PM Airway Patient location: OR Urgency: elective Date/time: 06/26/2025 2:20 PM Indications for airway management: anesthesia Difficult airway: no Staff: Supervising provider: Jhonathan Gaytan MD Placed by: PAYROLL AND BENEFITS ANALYST: Jessie Landry CRNA Emergent airway documentation: Risks and benefits discussed: yes Consent obtained: yes Consent given by: patient Airway prep: Preoxygenated: yes Patient position: sniffing Mask difficulty assessment: 1 - vent by mask Sedation level during airway: GA Final airway details: Final airway type: endotracheal airway Tube type: ETT ETT size: 7.0 mm Cuffed: yes Technique used for successful ETT placement: video laryngoscopy Insertion site: oral Video blade type: Glidescope Blade size: 3 Cormack-Lehane (video): grade I - full view of glottis Cuff volume: 8 mL Cuff inflated with: air ETT to teeth: 22 cm Placement verified by: auscultation and CO2 detection Airway secured with: silk tape Number of attempts: 1 us Jhonathan Gaytan MD ANESTHESIA ORDERABLES Final Res ult * POCT glucose (06/26/2025 11:10 AM CDT) Glucose, POC 153 70 - 199 mg/dL Comment: For Glucose values <35 mg/dl when Hematocrit is >60 mg/dl,the test may not accurately detect significant hypoglycemia,and testing in the Laboratory should be considered if clinically indicated. Blood 06/26/2025 11:1 0 AM CDT 06/26/2025 11:10 AM CDT Shawn Wong MD LAB POCT ORDERABLES - DEVICE Final Result Performing Organization Address [facility]/ZIP Co de Phone Number [facility] [address] [place] [address] * (ABNORMAL) Phosphorus (06/26/2025 11:10 AM CDT) Pathologist [facility] Phosphorus, pl 4.8(H) 2.3 - 4.5 mg/dL Comment:Reviewed- delta due to patient receiving phosphorus Blood 06/26/2025 11:1 0 AM CDT 06/26/2025 11:23 AM CDT Narrative [facility] - 06/26/2025 12:37 PM CDT Draw 1 hour after supplemental potassium phosphate infusion completed us Chris Johnston MD LAB BLOOD ORDERABLES Final R esult [facility] [address] Department [employer] [place] [address] * POCT glucose (06/26/2025 7:31 AM CDT) Glucose, POC 122 70 - 199 mg/dL Comment: For Glucose values <35 mg/dl when Hematocrit is >60 mg/dl,the test may not accurately detect significant hypoglycemia,and testing in the Laboratory should be considered if clinically indicated. Blood 06/26/2025 7:31 AM CDT 06/26/2025 7:31 AM CDT us Shawn Wong MD LAB POCT ORDERABLES - DEVICE Final Result Performing Organization Address City/[facility]/ZIP Co de Phone Number [facility] [address] [place] [address] * eGFR (06/26/2025 1:01 AM CDT) eGFR 79 >=60 mL/min/1. 73 m2 Comment: Interpretive Data [...] interpretive data was last reviewed 2021. Blood 06/26/2025 1:01 AM CDT 06/26/2025 1:12 AM CDT us Nuvia Byrd DO LAB BLOOD ORDERABLES Final R esult Performing Organization Address City/[facility]/ZIP Co de Phone Number [facility] [address] Department [employer] [place], [place] [id number] * (ABNORMAL) Calcium, ionized (06/26/2025 1:01 AM CDT) Calcium, Ionized 4.45(L) 4.50 - 5.10 mg/dL Blood 06/26/2025 1:01 AM CDT 06/26/2025 1:08 AM CDT us Nuvia Byrd DO LAB BLOOD ORDERABLES Final R esult Performing Organization Address City/[facility]/ZIP Co de Phone Number [facility] [address] [place] [address] * (ABNORMAL) CBC without differential (06/26/2025 1:01 AM CDT) [facility] WBC 11.31(H) 3.80 - 9.90 K/cumm Hgb 9.2(L) 11.9 - 15.5 g/dL [facility] Hct 30.1(L) 35.6 - 45.5 % [facility] Plt 207 150 - 400 K/cumm [facility] MPV 12.4(H) 9.1 - 12.3 fL [facility] RBC 3.32(L) 3.90 - 5.20 M/cumm [facility] MCV 90.7 81.3 - 96.4 fL [facility] MCH 27.7 27.1 - 33.3 pg [facility] MCHC 30.6(L) 32.3 - 35.7 g/dL [facility] RDW CV 17.5(H) 11.1 - 14.9 % [facility] RDW SD 56.6(H) 35.7 - 48.1 fL [facility] NRBC abs 0.00 0.00 - 0.01 K/cumm [facility] Blood 06/26/2025 1:01 AM CDT 06/26/2025 1:12 AM CDT us Chris Johnston MD LAB BLOOD ORDERABLES Final R esult [facility] [address] [place] [address] * Magnesium (06/26/2025 1:01 AM CDT) Magnesium 2.2 1.4 - 2.5 mg/dL Blood 06/26/2025 1:01 AM CDT 06/26/2025 1:12 AM CDT Chris Johnston MD LAB BLOOD ORDERABLES Final R esult [facility] [address] Department [place] [address] * (ABNORMAL) Renal function panel (06/26/2025 1:01 AM CDT) Pathologist [facility] Sodium 141 135 - 145 mmol/L Potassium, pl 3.4 3.3 - 4.9 mmol/L [facility] Chloride 98 97 - 110 mmol/L [facility] CO2 34(H) 22 - 32 mmol/L [facility] Anion gap 9 2 - 15 mmol/L [facility] BUN 22 6 - 25 mg/dL [facility] Creatinine 0.79 0.60 - 1.10 mg/dL [facility] Glucose 129 70 - 199 mg/dL [facility] Comment: Interpretive Data Fasting glucose >/= [...] interpretive data was last revised 2022. Calcium 8.4(L) 8.5 - 10.3 mg/dL [facility] Phosphorus, pl 2.4 2.3 - 4.5 mg/dL [facility] Albumin 2.7(L) 3.5 - 5.0 g/dL [facility] Blood 06/26/2025 1:01 AM CDT 06/26/2025 1:12 AM CDT Nuvia Byrd DO LAB BLOOD ORDERABLES Final R esult Performing Organization Address [facility] Co de Phone Number [facility] [address] Department of [employer] [place], [place] [id number] * Type and screen (06/26/2025 12:54 AM CDT) [facility] ABO Rh A Negative Carlos, indirect Negative [facility] Blood 06/26/2025 12:5 4 AM CDT 06/26/2025 1:09 AM CDT Narrative [facility] - 06/26/2025 1:49 AM CDT Has the patient had Daratumumab or Isatuximab in the past 6 months?->Unknown Acosta Bianchi MD LAB BLOOD BANK TEST ORD ERABLES Final Result Performing Organization Address [facility] de Phone Number [facility] [address] Department [place] [employer] [place] [id number] * POCT glucose (06/25/2025 9:21 PM CDT) [facility] Glucose, POC 159 70 - 199 mg/dL Comment: For Glucose values <35 mg/dl when Hematocrit is >60 mg/dl,the test may not accurately detect significant hypoglycemia,and testing in the Laboratory should be considered if clinically indicated. Blood 06/25/2025 9:21 PM CDT 06/25/2025 9:21 PM CDT Chris Johnston MD LAB POCT ORDERABLES - DEVICE Final Result Performing Organization Address [facility] Co de Phone Number [facility] [address] Department of [employer] [place], [place] [id number] * (ABNORMAL) Calcium, ionized (06/25/2025 5:43 PM CDT) [facility] Calcium, Ionized 4.37(L) 4.50 - 5.10 mg/dL Blood 06/25/2025 5:43 PM CDT 06/25/2025 5:50 PM CDT Chris Johnston MD LAB BLOOD ORDERABLES Final R esult Performing Organization Address [facility] Co de Phone Number [facility] [address] [place] [address] * Potassium (06/25/2025 5:43 PM CDT) Potassium, pl 4.1 3.3 - 4.9 mmol/L Blood 06/25/2025 5:43 PM CDT 06/25/2025 5:53 PM CDT Narrative [facility] - 06/25/2025 6:12 PM CDT Draw 1 hour after all infusions of supplemental potassium chloride completed Marita Ray MD LAB BLOOD ORDERABLES Fin al Result Performing Organization Address [facility] Co de Phone Number [facility] [address] [place] [address] * POCT glucose (06/25/2025 4:58 PM CDT) Pathologist [facility] Glucose, POC 178 70 - 199 mg/dL Comment: For Glucose values <35 mg/dl when Hematocrit is >60 mg/dl,the test may not accurately detect significant hypoglycemia,and testing in the Laboratory should be considered if clinically indicated. Blood 06/25/2025 4:58 PM CDT 06/25/2025 4:58 PM CDT Chris Johnston MD LAB POCT ORDERABLES - DEVICE Final Result Performing Organization Address [facility] Co de Phone Number [facility] [address] Department of [employer] [place], [place] [id number] * (ABNORMAL) POCT glucose (06/25/2025 12:19 PM CDT) Glucose, POC 234(H) 70 - 199 mg/dL Comment: For Glucose values <35 mg/dl when Hematocrit is >60 mg/dl,the test may not accurately detect significant hypoglycemia,and testing in the Laboratory should be considered if clinically indicated. Blood 06/25/2025 12:1 9 PM CDT 06/25/2025 12:19 PM CDT Chris Johnston MD LAB POCT ORDERABLES - DEVICE Final Result Performing Organization Address [facility] Co de Phone Number [facility] [address] [facility] [place] [address] * (ABNORMAL) Calcium, ionized (06/25/2025 9:22 AM CDT) Pathologist [facility] Calcium, Ionized 4.36(L) 4.50 - 5.10 mg/dL Blood 06/25/2025 9:22 AM CDT 06/25/2025 9:33 AM CDT Narrative [facility] - 06/25/2025 9:36 AM CDT Obtain 1 hour after calcium gluconate infusion completed. Marita Ray MD LAB BLOOD ORDERABLES Fin al Result Performing Organization Address [facility] Co de Phone Number [facility] [address] Department [employer] [place], [place] [id number] * Magnesium (06/25/2025 9:22 AM CDT) Magnesium 1.8 1.4 - 2.5 mg/dL Blood 06/25/2025 9:22 AM CDT 06/25/2025 9:43 AM CDT Chris Johnston MD LAB BLOOD ORDERABLES Final R esult Performing Organization Address [facility] Co de Phone Number [facility] [address] [place] [address] * POCT glucose (06/25/2025 8:22 AM CDT) Glucose, POC 139 70 - 199 mg/dL Comment: For Glucose values <35 mg/dl when Hematocrit is >60 mg/dl,the test may not accurately detect significant hypoglycemia,and testing in the Laboratory should be considered if clinically indicated. Blood 06/25/2025 8:22 AM CDT 06/25/2025 8:22 AM CDT us Chris Johnston MD LAB POCT ORDERABLES - DEVICE Final Result Performing Organization Address City/[facility] Co de Phone Number [facility] [address] Department [place] [address] * eGFR (06/25/2025 3:38 AM CDT) Pathologist [facility] eGFR 77 >=60 mL/min/1. 73 m2 Comment: Interpretive Data [...] interpretive data was last reviewed 2021. Blood 06/25/2025 3:38 AM CDT 06/25/2025 3:55 AM CDT us Nuvia Byrd DO LAB BLOOD ORDERABLES Final R esult [facility] [address] Department [employer] [place] [address] * (ABNORMAL) Calcium, ionized (06/25/2025 3:38 AM CDT) [facility] Calcium, Ionized 4.11(L) 4.50 - 5.10 mg/dL Blood 06/25/2025 3:38 AM CDT 06/25/2025 3:53 AM CDT us Nuvia Byrd DO LAB BLOOD ORDERABLES Final R esult Performing Organization Address [facility] Co de Phone Number [facility] [address] [employer] [place] [address] * (ABNORMAL) CBC without differential (06/25/2025 3:38 AM CDT) [facility] WBC 10.59(H) 3.80 - 9.90 K/cumm Hgb 10.4(L) 11.9 - 15.5 g/dL [facility] Hct 33.1(L) 35.6 - 45.5 % [facility] Plt 223 150 - 400 K/cumm [facility] MPV 12.2 9.1 - 12.3 fL [facility] RBC 3.74(L) 3.90 - 5.20 M/cumm [facility] MCV 88.5 81.3 - 96.4 fL [facility] MCH 27.8 27.1 - 33.3 pg [facility] MCHC 31.4(L) 32.3 - 35.7 g/dL [facility] RDW CV 17.6(H) 11.1 - 14.9 % [facility] RDW SD 55.1(H) 35.7 - 48.1 fL [facility] NRBC abs 0.00 0.00 - 0.01 K/cumm [facility] Blood 06/25/2025 3:38 AM CDT 06/25/2025 3:55 AM CDT us Gordo Corrales MD LAB BLOOD ORDERABLES Fi nal Result [facility] [address] Department [employer] [place], [place] [id number] * Magnesium (06/25/2025 3:38 AM CDT) [facility] Magnesium 1.6 1.4 - 2.5 mg/dL Comment:Reviewed Blood 06/25/2025 3:38 AM CDT 06/25/2025 3:55 AM CDT Chris Johnston MD LAB BLOOD ORDERABLES Final R esult Performing Organization Address [facility] Co de Phone Number [facility] [address] [place] [address] * (ABNORMAL) Renal function panel (06/25/2025 3:38 AM CDT) [facility] Sodium 141 135 - 145 mmol/L Potassium, pl 2.9(L) 3.3 - 4.9 mmol/L [facility] Chloride 96(L) 97 - 110 mmol/L [facility] CO2 34(H) 22 - 32 mmol/L [facility] Anion gap 11 2 - 15 mmol/L [facility] BUN 23 6 - 25 mg/dL [facility] Creatinine 0.81 0.60 - 1.10 mg/dL [facility] Glucose 123 70 - 199 mg/dL [facility] Comment: Interpretive Data Fasting glucose >/= [...] interpretive data was last revised 2022. Calcium 8.2(L) 8.5 - 10.3 mg/dL [facility] Phosphorus, pl 2.7 2.3 - 4.5 mg/dL [facility] Albumin 3.1(L) 3.5 - 5.0 g/dL [facility] Blood 06/25/2025 3:38 AM CDT 06/25/2025 3:55 AM CDT Nuvia Byrd DO LAB BLOOD ORDERABLES Final R esult Performing Organization Address [facility] Co de Phone Number [facility] [address] Department [place] [address] * POCT glucose (06/24/2025 8:26 PM CDT) Glucose, POC 183 70 - 199 mg/dL Comment: For Glucose values <35 mg/dl when Hematocrit is >60 mg/dl,the test may not accurately detect significant hypoglycemia,and testing in the Laboratory should be considered if clinically indicated. Blood 06/24/2025 8:26 PM CDT 06/24/2025 8:26 PM CDT Chris Johnston MD LAB POCT ORDERABLES - DEVICE Final Result Performing Organization Address [facility] de Phone Number [facility] [address] Department [place] [address] * POCT glucose (06/24/2025 4:57 PM CDT) Glucose, POC 181 70 - 199 mg/dL Comment: For Glucose values <35 mg/dl when Hematocrit is >60 mg/dl,the test may not accurately detect significant hypoglycemia,and testing in the Laboratory should be considered if clinically indicated. Blood 06/24/2025 4:57 PM CDT 06/24/2025 4:57 PM CDT Chris Johnston MD LAB POCT ORDERABLES - DEVICE Final Result Performing Organization Address [facility] Co de Phone Number [facility] [address] Department [place] [address] * Phosphorus (06/24/2025 1:17 PM CDT) Phosphorus, pl 4.3 2.3 - 4.5 mg/dL Comment:Reviewed Blood 06/24/2025 1:17 PM CDT 06/24/2025 1:33 PM CDT Narrative [facility] - 06/24/2025 2:02 PM CDT Draw 1 hour after supplemental sodium phosphate infusion completed Marita Ray MD LAB BLOOD ORDERABLES Fin al Result Performing Organization Address City/[facility]/ZIP Co de Phone Number [facility] [address] Department [place] [address] * POCT glucose (06/24/2025 11:42 AM CDT) [facility] Glucose, POC 174 70 - 199 mg/dL Comment: For Glucose values <35 mg/dl when Hematocrit is >60 mg/dl,the test may not accurately detect significant hypoglycemia,and testing in the Laboratory should be considered if clinically indicated. Blood 06/24/2025 11:4 2 AM CDT 06/24/2025 11:42 AM CDT Chris Johnston MD LAB POCT ORDERABLES - DEVICE Final Result Performing Organization Address City/[facility]/ZIP Co de Phone Number [facility] [address] Department [place] [address] * Calcium, ionized (06/24/2025 8:55 AM CDT) Pathologist [facility] Calcium, Ionized 4.63 4.50 - 5.10 mg/dL Blood 06/24/2025 8:55 AM CDT 06/24/2025 8:59 AM CDT Chris Johnston MD LAB BLOOD ORDERABLES Final R esult Performing Organization Address [facility] Co de Phone Number [facility] [address] Department [place] [address] * POCT glucose (06/24/2025 7:55 AM CDT) Glucose, POC 105 70 - 199 mg/dL Comment: For Glucose values <35 mg/dl when Hematocrit is >60 mg/dl,the test may not accurately detect significant hypoglycemia,and testing in the Laboratory should be considered if clinically indicated. Blood 06/24/2025 7:55 AM CDT 06/24/2025 7:55 AM CDT Chris Johnston MD LAB POCT ORDERABLES - DEVICE Final Result Performing Organization Address [facility] Co de Phone Number [facility] [address] Department [place] [address] * XR Chest 1 View (06/24/2025 5:05 AM CDT) Anatomical Region Laterality Modality Body, Chest N/A Computed Radiogr aphy 06/24/2025 7:05 AM CDT Impressions 06/24/2025 7:05 AM CDT Comparison with 06/23/2025. There is pulmonary edema small left pleural effusion. No pneumothorax. Sternal wires midline and nondisplaced. There is moderate cardiomegaly. Mitral valve annuloplasty ring noted. Electronically signed by: Tien Vargas M.D., MPH Narrative 06/24/2025 7:05 AM CDT EXAMINATION: 1 view chest radiograph Procedure Note Tien Vargas MD - 06/24/2025 EXAMINATION: 1 view chest radiograph IMPRESSION: Comparison with 06/23/2025. There is pulmonary edema small left pleural effusion. No pneumothorax. Sternal wires midline and nondisplaced. There is moderate cardiomegaly. Mitral valve annuloplasty ring noted. Electronically signed by: Tien Vargas M.D., MPH us Chris Johnston MD IMG XR PROCEDURES Final Resu lt * eGFR (06/24/2025 3:18 AM CDT) eGFR 70 >=60 mL/min/1. 73 m2 Comment: Interpretive Data [...] interpretive data was last reviewed 2021. Blood 06/24/2025 3:18 AM CDT 06/24/2025 3:28 AM CDT [facility] LAB BLOOD ORDERABLES Final R esult Performing Organization Address City/[facility]/ZIP Co de Phone Number [facility] [address] [place] [address] * (ABNORMAL) Calcium, ionized (06/24/2025 3:18 AM CDT) Calcium, Ionized 3.55(L) 4.50 - 5.10 mg/dL Blood 06/24/2025 3:18 AM CDT 06/24/2025 3:21 AM CDT [facility] LAB BLOOD ORDERABLES Final R esult [facility] [address] Department [place] [address] * (ABNORMAL) CBC without differential (06/24/2025 3:18 AM CDT) [facility] WBC 10.79(H) 3.80 - 9.90 K/cumm Hgb 9.9(L) 11.9 - 15.5 g/dL [facility] Hct 32.0(L) 35.6 - 45.5 % [facility] Plt 180 150 - 400 K/cumm [facility] MPV 11.9 9.1 - 12.3 fL [facility] RBC 3.57(L) 3.90 - 5.20 M/cumm [facility] MCV 89.6 81.3 - 96.4 fL [facility] MCH 27.7 27.1 - 33.3 pg [facility] MCHC 30.9(L) 32.3 - 35.7 g/dL [facility] RDW CV 17.4(H) 11.1 - 14.9 % [facility] RDW SD 55.9(H) 35.7 - 48.1 fL [facility] NRBC abs 0.00 0.00 - 0.01 K/cumm [facility] Blood 06/24/2025 3:18 AM CDT 06/24/2025 3:28 AM CDT Gordo Corrales MD LAB BLOOD ORDERABLES Fi nal Result Performing Organization Address City/[facility]/ZIP Co de Phone Number [facility] [address] Department [place] [address] * Magnesium (06/24/2025 3:18 AM CDT) [facility] Magnesium 2.3 1.4 - 2.5 mg/dL Blood 06/24/2025 3:18 AM CDT 06/24/2025 3:28 AM CDT Chris Johnston MD LAB BLOOD ORDERABLES Final R esult [facility] [address] Department [place] [address] * (ABNORMAL) Renal function panel (06/24/2025 3:18 AM CDT) [facility] Sodium 143 135 - 145 mmol/L Potassium, pl 4.8 3.3 - 4.9 mmol/L [facility] Chloride 107 97 - 110 mmol/L [facility] CO2 27 22 - 32 mmol/L [facility] Anion gap 9 2 - 15 mmol/L [facility] BUN 19 6 - 25 mg/dL [facility] Creatinine 0.87 0.60 - 1.10 mg/dL [facility] Glucose 135 70 - 199 mg/dL [facility] Comment: Interpretive Data Fasting glucose >/= [...] interpretive data was last revised 2022. Calcium 8.1(L) 8.5 - 10.3 mg/dL [facility] Phosphorus, pl 2.1(L) 2.3 - 4.5 mg/dL [facility] Albumin 2.5(L) 3.5 - 5.0 g/dL [facility] Blood 06/24/2025 3:18 AM CDT 06/24/2025 3:28 AM CDT us Nuvia Byrd DO LAB BLOOD ORDERABLES Final R esult Performing Organization Address City/[facility]/ZIP Co de Phone Number [facility] [address] Department [place] [address] * (ABNORMAL) Blood gas, arterial (06/23/2025 9:42 PM CDT) pH, Art 7.37 7.35 - 7.45 PCO2, Arterial 67(H) 35 - 45 mmHg [facility] PO2, Arterial 96 83 - 108 mmHg [facility] HCO3 Art (Calculated) 39(H) 20 - 30 mmol/L [facility] BE, art 11 mmol/L [facility] Comment: Interpretive Data No Reference Range Established Current Interpretive Data was last revised on 2017 O2 Sat Art (Calculated) 97 94 - 98 % [facility] Blood 06/23/2025 9:42 PM CDT 06/23/2025 9:46 PM CDT us Marita Ray MD LAB BLOOD ORDERABLES Fin al Result Performing Organization Address [facility] Co de Phone Number [facility] [address] [place] [address] * Lactate (06/23/2025 9:29 PM CDT) Pathologist [facility] Lactate 0.9 0.7 - 2.0 mmol/L Blood 06/23/2025 9:29 PM CDT 06/23/2025 9:46 PM CDT Marita Ray MD LAB BLOOD ORDERABLES Fin al Result Performing Organization Address [facility] Co de Phone Number [facility] [address] [place] [address] * (ABNORMAL) Calcium, ionized (06/23/2025 9:29 PM CDT) Calcium, Ionized 3.92(L) 4.50 - 5.10 mg/dL Blood 06/23/2025 9:29 PM CDT 06/23/2025 9:46 PM CDT us Marita Ray MD LAB BLOOD ORDERABLES Fin al Result Performing Organization Address [facility] Co de Phone Number [facility] [address] Department [place] [address] * Magnesium (06/23/2025 8:44 PM CDT) [facility] Magnesium 2.3 1.4 - 2.5 mg/dL Comment:Reviewed Blood 06/23/2025 8:44 PM CDT 06/23/2025 8:47 PM CDT Narrative [facility] - 06/23/2025 9:16 PM CDT Obtain 1 hour after magnesium infusion completed. us Chris Johnston MD LAB BLOOD ORDERABLES Final R esult [facility] [address] [place] [address] * POCT glucose (06/23/2025 8:19 PM CDT) [facility] Glucose, POC 124 70 - 199 mg/dL Comment: For Glucose values <35 mg/dl when Hematocrit is >60 mg/dl,the test may not accurately detect significant hypoglycemia,and testing in the Laboratory should be considered if clinically indicated. Blood 06/23/2025 8:19 PM CDT 06/23/2025 8:19 PM CDT Jorge Macias MD LAB POCT ORDERABLES - DE VICE Final Result Performing Organization Address City/[facility]/ZIP Co de Phone Number [facility] [address] Department [place] [address] * (ABNORMAL) Blood gas, arterial (06/23/2025 7:04 PM CDT) [facility] pH, Art 7.34(L) 7.35 - 7.45 PCO2, Arterial 74(H) 35 - 45 mmHg [facility] PO2, Arterial 92 83 - 108 mmHg [facility] HCO3 Art (Calculated) 40(H) 20 - 30 mmol/L [facility] BE, art 11 mmol/L [facility] Comment: Interpretive Data No Reference Range Established Current Interpretive Data was last revised on 2017 O2 Sat Art (Calculated) 97 94 - 98 % [facility] Blood 06/23/2025 7:04 PM CDT 06/23/2025 7:18 PM CDT Result [facility] Chris Johnston MD LAB BLOOD ORDERABLES Final R esult Performing Organization Address [facility] Co de Phone Number [facility] [address] [facility] [employer] [place], [place] [id number] * (ABNORMAL) Hemoglobin and hematocrit (06/23/2025 5:53 PM CDT) Hgb 10.5(L) 11.9 - 15.5 g/dL Hct 36.4 35.6 - 45.5 % [facility] Blood 06/23/2025 5:53 PM CDT 06/23/2025 5:59 PM CDT Result [facility] Chris Johnston MD LAB BLOOD ORDERABLES Final R esult Performing Organization Address [facility] Co de Phone Number [facility] [address] [facility] [place] [address] * (ABNORMAL) Potassium (06/23/2025 5:33 PM CDT) Potassium, pl 2.7(C) 3.3 - 4.9 mmol/L Comment:Critical result call ed to and read back by Kayla Franklin on 06.23.2025 1818 to [id number] Blood 06/23/2025 5:33 PM CDT 06/23/2025 5:38 PM CDT Chris Johnston MD LAB BLOOD ORDERABLES Final R esult Performing Organization Address [facility] Co de Phone Number [facility] [address] Department [employer] [place], [place] [id number] * (ABNORMAL) Magnesium (06/23/2025 5:33 PM CDT) Pathologist [facility] Magnesium 1.0(L) 1.4 - 2.5 mg/dL Blood 06/23/2025 5:33 PM CDT 06/23/2025 5:38 PM CDT Chris Johnston MD LAB BLOOD ORDERABLES Final R esult Performing Organization Address [facility] Co de Phone Number [facility] [address] Department [place] [address] * (ABNORMAL) Blood gas, arterial (06/23/2025 5:33 PM CDT) [facility] pH, Art 7.24(L) 7.35 - 7.45 PCO2, Arterial 82(H) 35 - 45 mmHg [facility] PO2, Arterial 101 83 - 108 mmHg [facility] HCO3 Art (Calculated) 35(H) 20 - 30 mmol/L [facility] BE, art 5 mmol/L [facility] Comment: Interpretive Data No Reference Range Established Current Interpretive Data was last revised on 2017 O2 Sat Art (Calculated) 97 94 - 98 % [facility] Blood 06/23/2025 5:33 PM CDT 06/23/2025 5:37 PM CDT Chris Johnston MD LAB BLOOD ORDERABLES Final R esult Performing Organization Address [facility] Co de Phone Number [facility] [address] [place] [address] * POCT glucose (06/23/2025 5:32 PM CDT) [facility] Glucose, POC 140 70 - 199 mg/dL Comment: For Glucose values <35 mg/dl when Hematocrit is >60 mg/dl,the test may not accurately detect significant hypoglycemia,and testing in the Laboratory should be considered if clinically indicated. Blood 06/23/2025 5:32 PM CDT 06/23/2025 5:32 PM CDT Jorge Macias MD LAB POCT ORDERABLES - DE VICE Final Result [facility] [address] Department [place] [address] * (ABNORMAL) Pro B-type natriuretic peptide (06/23/2025 1:30 PM CDT) NT-proBNP 1,008(H) <=300 pg/mL Comment: Interpretive Comments: A. Dyspnea in Acute Care Setting All Ages: < 300 pg/ml, acute heart failure unlikely. < 50 yrs: 300 - 450 pg/ml, further investigation warranted. > 450 pg/ml, acute heart failure likely. 50 - 74 yrs: 300 - 900 pg/ml, further investigation warranted. > 900 pg/ml, acute heart failure likely . > or = 75 yrs: 450 - 1800 pg/ml, further investigation warranted. > 1800 pg/ml, acute heart failure likely. B. Non-acute Setting < 75 yrs < 125 pg/ml, rules out heart failure. > or = 125 pg/ml, further investigation warranted. > or = 75 yrs < 450 pg/ml, rules out heart failure. > or = 450 pg/ml, further investigation warranted. - Knowledge of each individual patient's NT-proBNP range may be more useful than using similar cut-points for every patient. Please note that marked elevations in NT-proBNP levels may be observed in state other than Left Ventricular Congestive Failure, including: acute coronary syndromes, right heart strain/failure (including pulmonary embolism and cor pulmonale), critical illness, renal failure, as well as advanced age. - References: 1. Lydia TRUJILLO et.al. Eur Heart J. 2006:27:330-337. 2. Fahad RW, [place] AM. J. AM Chadwick Cardiol: Cardiovasc Imag. 2009;2: 216- 225. Interpretive Data Last Revised Date: 2018. Blood 06/23/2025 1:30 PM CDT 06/23/2025 1:30 PM CDT Gordo Corrales MD LAB BLOOD ORDERABLES Fi nal Result [facility] [address] [place] [address] * Sepsis Lactate w/ Reflex (06/23/2025 1:03 PM CDT) Sepsis Lactate 1.1 0.7 - 2.0 mmol/L Blood 06/23/2025 1:03 PM CDT 06/23/2025 1:13 PM CDT Gerson العراق[facility] LAB BLOOD ORDERABLES Final Resu lt Performing Organization Address [facility] Co de Phone Number [facility] [address] [place] [address] * XR Chest 1 View (06/23/2025 1:02 PM CDT) Anatomical Region Laterality Modality Body, Chest N/A Computed Radiogr aphy 06/23/2025 1:39 PM CDT Impressions 06/23/2025 1:39 PM CDT FINDINGS/IMPRESSION: There are moderate pleural effusions, left larger than right, new since the prior study. There is likely underlying edema. There are persistent ill-defined opacities in the lung apices, slightly improved. Heart is mildly enlarged. Mediastinal contour is normal. Patient is status post median sternotomy and mitral annuloplasty. There is a reverse [id number] right total shoulder arthroplasty. Electronically signed by: Foster Chadwick M.D. Narrative 06/23/2025 1:39 PM CDT EXAMINATION: XR CHEST 1 VIEW DATE: 06/23/2025 12:35 PM HISTORY: dyspnea. COMPARISON: Chest radiograph dated 06/12/2025. Procedure Note Foster Chadwick MD - 06/23/2025 EXAMINATION: XR CHEST 1 VIEW DATE: 06/23/2025 12:35 PM HISTORY: dyspnea. COMPARISON: Chest radiograph dated 06/12/2025. IMPRESSION: FINDINGS/IMPRESSION: There are moderate pleural effusions, left larger than right, new since the prior study. There is likely underlying edema. There are persistent ill-defined opacities in the lung apices, slightly improved. Heart is mildly enlarged. Mediastinal contour is normal. Patient is status post median sternotomy and mitral annuloplasty. There is a reverse [id number] right total shoulder arthroplasty. Electronically signed by: Foster Chadwick M.D. Gordo Corrales MD IMG XR PROCEDURES Final Result * (ABNORMAL) Blood gas, arterial (06/23/2025 12:47 PM CDT) pH, Art 7.25(L) 7.35 - 7.45 PCO2, Arterial 77(H) 35 - 45 mmHg [facility] PO2, Arterial 95 83 - 108 mmHg [facility] HCO3 Art (Calculated) 34(H) 20 - 30 mmol/L [facility] BE, art 4 mmol/L [facility] Comment: Interpretive Data No Reference Range Established Current Interpretive Data was last revised on 2017 O2 Sat Art (Calculated) 96 94 - 98 % [facility] Blood 06/23/2025 12:4 7 PM CDT 06/23/2025 12:50 PM CDT Gerson العراقي LAB BLOOD ORDERABLES Final Resu lt [facility] [address] Department [place] [address] * (ABNORMAL) POCT glucose (06/23/2025 11:17 AM CDT) Glucose, POC 259(H) 70 - 199 mg/dL Comment: For Glucose values <35 mg/dl when Hematocrit is >60 mg/dl,the test may not accurately detect significant hypoglycemia,and testing in the Laboratory should be considered if clinically indicated. Blood 06/23/2025 11:1 7 AM CDT 06/23/2025 11:17 AM CDT Jorge Macias MD LAB POCT ORDERABLES - DE VICE Final Result Performing Organization Address [facility] Co de Phone Number [facility] [address] [facility] [employer] [place], [place] [id number] * POCT glucose (06/23/2025 5:32 AM CDT) Glucose, POC 142 70 - 199 mg/dL Comment: For Glucose values <35 mg/dl when Hematocrit is >60 mg/dl,the test may not accurately detect significant hypoglycemia,and testing in the Laboratory should be considered if clinically indicated. Blood 06/23/2025 5:32 AM CDT 06/23/2025 5:32 AM CDT Jorge Macias MD LAB POCT ORDERABLES - DE VICE Final Result Performing Organization Address [facility] Co de Phone Number [facility] [address] [place] [address] * eGFR (06/23/2025 4:54 AM CDT) eGFR >90 >=60 mL/min/1. 73 [...] interpretive data was last reviewed 2021. Blood 06/23/2025 4:54 AM CDT 06/23/2025 6:32 AM CDT [facility] BLOOD ORDERABLES Final R esult Performing Organization Address City/[facility]/ZIP Co de Phone Number [facility] [address] [facility] [place] [address] * Calcium, ionized (06/23/2025 4:54 AM CDT) Pathologist [facility] Calcium, Ionized 4.59 4.50 - 5.10 mg/dL Blood 06/23/2025 4:54 AM CDT 06/23/2025 4:58 AM CDT [facility] BLOOD ORDERABLES Final R esult Performing Organization Address City/[facility] Co de Phone Number [facility] [address] [facility] [place] [address] * (ABNORMAL) CBC without differential (06/23/2025 4:54 AM CDT) [facility] WBC 11.15(H) 3.80 - 9.90 K/cumm Hgb 12.3 11.9 - 15.5 g/dL [facility] Hct 40.1 35.6 - 45.5 % [facility] Plt 296 150 - 400 K/cumm [facility] MPV 12.8(H) 9.1 - 12.3 fL [facility] RBC 4.46 3.90 - 5.20 M/cumm [facility] MCV 89.9 81.3 - 96.4 fL [facility] MCH 27.6 27.1 - 33.3 pg [facility] MCHC 30.7(L) 32.3 - 35.7 g/dL [facility] RDW CV 17.6(H) 11.1 - 14.9 % [facility] RDW SD 56.6(H) 35.7 - 48.1 fL [facility] NRBC abs 0.00 0.00 - 0.01 K/cumm [facility] Blood 06/23/2025 4:54 AM CDT 06/23/2025 6:31 AM CDT us Gordo Corrales MD LAB BLOOD ORDERABLES Fi nal Result [facility] [address] Department [place] [address] * (ABNORMAL) Renal function panel (06/23/2025 4:54 AM CDT) Sodium 144 135 - 145 mmol/L Potassium, pl 3.5 3.3 - 4.9 mmol/L [facility] Chloride 103 97 - 110 mmol/L [facility] CO2 29 22 - 32 mmol/L [facility] Anion gap 12 2 - 15 mmol/L [facility] BUN 18 6 - 25 mg/dL [facility] Creatinine 0.61 0.60 - 1.10 mg/dL [facility] Glucose 152 70 - 199 mg/dL [facility] Comment: Interpretive Data Fasting glucose >/= [...] interpretive data was last revised 2022. Calcium 8.4(L) 8.5 - 10.3 mg/dL [facility] Phosphorus, pl 1.9(L) 2.3 - 4.5 mg/dL [facility] Albumin 3.0(L) 3.5 - 5.0 g/dL [facility] Blood 06/23/2025 4:54 AM CDT 06/23/2025 6:32 AM CDT us Nuvia Byrd DO LAB BLOOD ORDERABLES Final R esult Performing Organization Address [facility]/ZIP Co de Phone Number [facility] [address] [facility] [place] [address] * POCT glucose (06/22/2025 8:10 PM CDT) Glucose, POC 195 70 - 199 mg/dL Comment: For Glucose values <35 mg/dl when Hematocrit is >60 mg/dl,the test may not accurately detect significant hypoglycemia,and testing in the Laboratory should be considered if clinically indicated. Blood 06/22/2025 8:10 PM CDT 06/22/2025 8:10 PM CDT Jorge Macias MD LAB POCT ORDERABLES - DE VICE Final Result Performing Organization Address [facility] Co de Phone Number [facility] [address] [facility] [place] [address] * POCT glucose (06/22/2025 4:15 PM CDT) Glucose, POC 149 70 - 199 mg/dL Comment: For Glucose values <35 mg/dl when Hematocrit is >60 mg/dl,the test may not accurately detect significant hypoglycemia,and testing in the Laboratory should be considered if clinically indicated. Blood 06/22/2025 4:15 PM CDT 06/22/2025 4:15 PM CDT Jorge Macias MD LAB POCT ORDERABLES - DE VICE Final Result Performing Organization Address [facility] Co de Phone Number [facility] [address] [facility] [place] [address] * POCT glucose (06/22/2025 11:16 AM CDT) Glucose, POC 166 70 - 199 mg/dL Comment: For Glucose values <35 mg/dl when Hematocrit is >60 mg/dl,the test may not accurately detect significant hypoglycemia,and testing in the Laboratory should be considered if clinically indicated. Blood 06/22/2025 11:1 6 AM CDT 06/22/2025 11:16 AM CDT Jorge Macias MD LAB POCT ORDERABLES - DE VICE Final Result Performing Organization Address [facility] Co de Phone Number [facility] [address] [facility] [employer] [place], [place] [id number] * POCT glucose (06/22/2025 6:05 AM CDT) Glucose, POC 149 70 - 199 mg/dL Comment: For Glucose values <35 mg/dl when Hematocrit is >60 mg/dl,the test may not accurately detect significant hypoglycemia,and testing in the Laboratory should be considered if clinically indicated. Blood 06/22/2025 6:05 AM CDT 06/22/2025 6:05 AM CDT Jorge Macias MD LAB POCT ORDERABLES - DE VICE Final Result Performing Organization Address [facility] Co de Phone Number [facility] [address] [employer] [place], [place] [id number] * eGFR (06/22/2025 5:17 AM CDT) eGFR 88 >=60 mL/min/1. 73 m2 Comment: Interpretive Data [...] interpretive data was last reviewed 2021. Blood 06/22/2025 5:17 AM CDT 06/22/2025 5:37 AM CDT [facility] BLOOD ORDERABLES Final R esult Performing Organization Address City/[facility]/ZIP Co de Phone Number [facility] [address] [employer] [place] [address] * Calcium, ionized (06/22/2025 5:17 AM CDT) Pathologist [facility] Calcium, Ionized 4.57 4.50 - 5.10 mg/dL Blood 06/22/2025 5:17 AM CDT 06/22/2025 5:25 AM CDT [facility] BLOOD ORDERABLES Final R esult Performing Organization Address City/[facility]/ZIP Co de Phone Number [facility] [address] [place] [address] * (ABNORMAL) CBC without differential (06/22/2025 5:17 AM CDT) Pathologist [facility] WBC 12.10(H) 3.80 - 9.90 K/cumm Hgb 12.9 11.9 - 15.5 g/dL [facility] Hct 41.4 35.6 - 45.5 % [facility] Plt 330 150 - 400 K/cumm [facility] MPV 12.3 9.1 - 12.3 fL [facility] RBC 4.61 3.90 - 5.20 M/cumm [facility] MCV 89.8 81.3 - 96.4 fL [facility] MCH 28.0 27.1 - 33.3 pg [facility] MCHC 31.2(L) 32.3 - 35.7 g/dL [facility] RDW CV 17.2(H) 11.1 - 14.9 % [facility] RDW SD 55.0(H) 35.7 - 48.1 fL [facility] NRBC abs 0.00 0.00 - 0.01 K/cumm [facility] Blood 06/22/2025 5:17 AM CDT 06/22/2025 5:37 AM CDT us Gordo Corrales MD LAB BLOOD ORDERABLES Fi nal Result [facility] [address] Department [place] [address] * (ABNORMAL) Renal function panel (06/22/2025 5:17 AM CDT) Sodium 145 135 - 145 mmol/L Potassium, pl 3.2(L) 3.3 - 4.9 mmol/L [facility] Chloride 105 97 - 110 mmol/L [facility] CO2 32 22 - 32 mmol/L [facility] Anion gap 8 2 - 15 mmol/L [facility] BUN 20 6 - 25 mg/dL [facility] Creatinine 0.72 0.60 - 1.10 mg/dL [facility] Glucose 153 70 - 199 mg/dL [facility] Comment: Interpretive Data Fasting glucose >/= [...] interpretive data was last revised 2022. Calcium 8.5 8.5 - 10.3 mg/dL [facility] Phosphorus, pl 2.3 2.3 - 4.5 mg/dL [facility] Albumin 3.2(L) 3.5 - 5.0 g/dL [facility] Blood 06/22/2025 5:17 AM CDT 06/22/2025 5:37 AM CDT us Nuvia Byrd DO LAB BLOOD ORDERABLES Final R esult Performing Organization Address [facility] Co de Phone Number [facility] [address] [place] [address] * POCT glucose (06/21/2025 8:52 PM CDT) Glucose, POC 156 70 - 199 mg/dL Comment: For Glucose values <35 mg/dl when Hematocrit is >60 mg/dl,the test may not accurately detect significant hypoglycemia,and testing in the Laboratory should be considered if clinically indicated. Blood 06/21/2025 8:52 PM CDT 06/21/2025 8:52 PM CDT us Jorge Macias MD LAB POCT ORDERABLES - DE VICE Final Result Performing Organization Address [facility] de Phone Number [facility] [address] [place] [address] * (ABNORMAL) POCT glucose (06/21/2025 4:13 PM CDT) Glucose, POC 207(H) 70 - 199 mg/dL Comment: For Glucose values <35 mg/dl when Hematocrit is >60 mg/dl,the test may not accurately detect significant hypoglycemia,and testing in the Laboratory should be considered if clinically indicated. Blood 06/21/2025 4:13 PM CDT 06/21/2025 4:13 PM CDT Jorge Macias MD LAB POCT ORDERABLES - DE VICE Final Result Performing Organization Address [facility] Co de Phone Number [facility] [address] [place] [address] * Calcium, ionized (06/21/2025 1:49 PM CDT) Calcium, Ionized 4.66 4.50 - 5.10 mg/dL Blood 06/21/2025 1:49 PM CDT 06/21/2025 1:54 PM CDT us Nuvia Byrd DO LAB BLOOD ORDERABLES Final R esult Performing Organization Address [facility] Co de Phone Number [facility] [address] Department [employer] [place] [address] * (ABNORMAL) CBC without differential (06/21/2025 1:49 PM CDT) [facility] WBC 13.78(H) 3.80 - 9.90 K/cumm Hgb 12.0 11.9 - 15.5 g/dL [facility] Hct 38.7 35.6 - 45.5 % [facility] Plt 301 150 - 400 K/cumm [facility] MPV 12.4(H) 9.1 - 12.3 fL [facility] RBC 4.30 3.90 - 5.20 M/cumm [facility] MCV 90.0 81.3 - 96.4 fL [facility] MCH 27.9 27.1 - 33.3 pg [facility] MCHC 31.0(L) 32.3 - 35.7 g/dL [facility] RDW CV 17.2(H) 11.1 - 14.9 % [facility] RDW SD 55.1(H) 35.7 - 48.1 fL [facility] NRBC abs 0.00 0.00 - 0.01 K/cumm [facility] Blood 06/21/2025 1:49 PM CDT 06/21/2025 2:00 PM CDT us Jorge Macias MD LAB BLOOD ORDERABLES Fin al Result Performing Organization Address City/[facility]/ZIP Co de Phone Number [facility] [address] [place] [address] * POCT glucose (06/21/2025 11:15 AM CDT) Pathologist [facility] Glucose, POC 185 70 - 199 mg/dL Comment: For Glucose values <35 mg/dl when Hematocrit is >60 mg/dl,the test may not accurately detect significant hypoglycemia,and testing in the Laboratory should be considered if clinically indicated. Blood 06/21/2025 11:1 5 AM CDT 06/21/2025 11:15 AM CDT Jorge Macias MD LAB POCT ORDERABLES - DE VICE Final Result Performing Organization Address [facility]/ZIP Co de Phone Number [facility] [address] Department [employer] [place] [address] * eGFR (06/21/2025 6:08 AM CDT) [facility] eGFR >90 >=60 mL/min/1. 73 m2 Comment: [...] interpretive data was last reviewed 2021. Blood 06/21/2025 6:08 AM CDT 06/21/2025 6:27 AM CDT us Nuvia Byrd DO LAB BLOOD ORDERABLES Final R esult Performing Organization Address City/[facility]/ZIP Co de Phone Number [facility] [address] [place] [address] * (ABNORMAL) Renal function panel (06/21/2025 6:08 AM CDT) [facility] Sodium 142 135 - 145 mmol/L Potassium, pl 4.1 3.3 - 4.9 mmol/L [facility] Comment:Hemolyzed; potassium value may be falsely elevated by as much as 0.3 - 0.5 mmol/L. Suggest redraw and reanalysis Chloride 106 97 - 110 mmol/L [facility] CO2 25 22 - 32 mmol/L [facility] Anion gap 11 2 - 15 mmol/L [facility] BUN 19 6 - 25 mg/dL [facility] Creatinine 0.59(L) 0.60 - 1.10 mg/dL [facility] Glucose 164 70 - 199 mg/dL [facility] Comment: Interpretive Data Fasting glucose >/= [...] interpretive data was last revised 2022. Calcium 8.5 8.5 - 10.3 mg/dL [facility] Phosphorus, pl 2.2(L) 2.3 - 4.5 mg/dL [facility] Albumin 3.0(L) 3.5 - 5.0 g/dL [facility] Blood 06/21/2025 6:08 AM CDT 06/21/2025 6:27 AM CDT us Nuvia Byrd DO LAB BLOOD ORDERABLES Final R esult [facility] [address] Department [place] [address] * POCT glucose (06/21/2025 4:53 AM CDT) Glucose, POC 142 70 - 199 mg/dL Comment: For Glucose values <35 mg/dl when Hematocrit is >60 mg/dl,the test may not accurately detect significant hypoglycemia,and testing in the Laboratory should be considered if clinically indicated. Blood 06/21/2025 4:53 AM CDT 06/21/2025 4:53 AM CDT Result [facility] Jorge Macias MD LAB POCT ORDERABLES - DE VICE Final Result Performing Organization Address [facility] Phone Number [facility] [address] [facility] [place] [address] * POCT glucose (06/20/2025 8:28 PM CDT) Glucose, POC 190 70 - 199 mg/dL Comment: For Glucose values <35 mg/dl when Hematocrit is >60 mg/dl,the test may not accurately detect significant hypoglycemia,and testing in the Laboratory should be considered if clinically indicated. Blood 06/20/2025 8:28 PM CDT 06/20/2025 8:28 PM CDT Result [facility] us Jorge Macias MD LAB POCT ORDERABLES - DE VICE Final Result Performing Organization Address [facility] Phone Number [facility] [address] [facility] [place] [address] * POCT glucose (06/20/2025 4:39 PM CDT) Glucose, POC 191 70 - 199 mg/dL Comment: For Glucose values <35 mg/dl when Hematocrit is >60 mg/dl,the test may not accurately detect significant hypoglycemia,and testing in the Laboratory should be considered if clinically indicated. Blood 06/20/2025 4:39 PM CDT 06/20/2025 4:39 PM CDT us Jorge Macias MD LAB POCT ORDERABLES - DE VICE Final Result Performing Organization Address [facility]/ZIP Co de Phone Number [facility] [address] [facility] [place] [address] * POCT glucose (06/20/2025 11:22 AM CDT) Glucose, POC 139 70 - 199 mg/dL Comment: For Glucose values <35 mg/dl when Hematocrit is >60 mg/dl,the test may not accurately detect significant hypoglycemia,and testing in the Laboratory should be considered if clinically indicated. Blood 06/20/2025 11:2 2 AM CDT 06/20/2025 11:22 AM CDT Jorge Macias MD LAB POCT ORDERABLES - DE VICE Final Result Performing Organization Address [facility] Co de Phone Number [facility] [address] [facility] [place] [address] * POCT glucose (06/20/2025 6:41 AM CDT) Glucose, POC 112 70 - 199 mg/dL Comment: For Glucose values <35 mg/dl when Hematocrit is >60 mg/dl,the test may not accurately detect significant hypoglycemia,and testing in the Laboratory should be considered if clinically indicated. Blood 06/20/2025 6:41 AM CDT 06/20/2025 6:41 AM CDT Jorge Macias MD LAB POCT ORDERABLES - DE VICE Final Result Performing Organization Address [facility] Co de Phone Number [facility] [address] [place] [address] * eGFR (06/20/2025 4:43 AM CDT) eGFR >90 >=60 mL/min/1. 73 [...] interpretive data was last reviewed 2021. Blood 06/20/2025 4:43 AM CDT 06/20/2025 5:15 AM CDT [facility] BLOOD ORDERABLES Final R esult Performing Organization Address City/[facility]/ZIP Co de Phone Number [facility] [address] Department [employer] [place] [address] * Calcium, ionized (06/20/2025 4:43 AM CDT) Pathologist [facility] Calcium, Ionized 4.63 4.50 - 5.10 mg/dL Blood 06/20/2025 4:43 AM CDT 06/20/2025 5:13 AM CDT [facility] BLOOD ORDERABLES Final R esult Performing Organization Address City/[facility] Co de Phone Number [facility] [address] [place] [address] * (ABNORMAL) CBC without differential (06/20/2025 4:43 AM CDT) Pathologist [facility] WBC 10.80(H) 3.80 - 9.90 K/cumm Hgb 12.6 11.9 - 15.5 g/dL [facility] Hct 40.5 35.6 - 45.5 % [facility] Plt 277 150 - 400 K/cumm [facility] MPV 12.4(H) 9.1 - 12.3 fL [facility] RBC 4.53 3.90 - 5.20 M/cumm [facility] MCV 89.4 81.3 - 96.4 fL [facility] MCH 27.8 27.1 - 33.3 pg [facility] MCHC 31.1(L) 32.3 - 35.7 g/dL [facility] RDW CV 16.7(H) 11.1 - 14.9 % [facility] RDW SD 52.9(H) 35.7 - 48.1 fL [facility] NRBC abs 0.00 0.00 - 0.01 K/cumm [facility] Blood 06/20/2025 4:43 AM CDT 06/20/2025 5:16 AM CDT Gordo Corrales MD LAB BLOOD ORDERABLES Fi nal Result [facility] [address] Department [place] [address] * (ABNORMAL) Renal function panel (06/20/2025 4:43 AM CDT) Sodium 143 135 - 145 mmol/L Potassium, pl 2.9(L) 3.3 - 4.9 mmol/L [facility] Chloride 104 97 - 110 mmol/L [facility] CO2 28 22 - 32 mmol/L [facility] Anion gap 11 2 - 15 mmol/L [facility] BUN 17 6 - 25 mg/dL [facility] Creatinine 0.60 0.60 - 1.10 mg/dL [facility] Glucose 142 70 - 199 mg/dL [facility] Comment: Interpretive Data Fasting glucose >/= [...] interpretive data was last revised 2022. Calcium 8.5 8.5 - 10.3 mg/dL [facility] Phosphorus, pl 2.0(L) 2.3 - 4.5 mg/dL [facility] Albumin 2.9(L) 3.5 - 5.0 g/dL [facility] Blood 06/20/2025 4:43 AM CDT 06/20/2025 5:15 AM CDT Nuvia Byrd DO LAB BLOOD ORDERABLES Final R esult Performing Organization Address City/[facility]/ZIP Co de Phone Number [facility] [address] Department of [employer] [place], [place] [id number] * POCT glucose (06/19/2025 7:50 PM CDT) Glucose, POC 187 70 - 199 mg/dL Comment: For Glucose values <35 mg/dl when Hematocrit is >60 mg/dl,the test may not accurately detect significant hypoglycemia,and testing in the Laboratory should be considered if clinically indicated. Blood 06/19/2025 7:50 PM CDT 06/19/2025 7:50 PM CDT Aly Montero MD LAB POCT ORDERABLES - DEVICE Final Result Performing Organization Address City/[facility]/ZIP Co de Phone Number [facility] [address] [place] [address] * POCT glucose (06/19/2025 4:31 PM CDT) Glucose, POC 149 70 - 199 mg/dL Comment: For Glucose values <35 mg/dl when Hematocrit is >60 mg/dl,the test may not accurately detect significant hypoglycemia,and testing in the Laboratory should be considered if clinically indicated. Blood 06/19/2025 4:31 PM CDT 06/19/2025 4:31 PM CDT us Aly Montero MD LAB POCT ORDERABLES - DEVICE Final Result [facility] [address] Department [place] [address] * MRI Brain W WO Contrast (06/19/2025 11:58 AM CDT) Anatomical Region Laterality Modality Head and Neck N/A Magnetic Resonan ce 06/19/2025 3:07 PM CDT Impressions 06/19/2025 3:07 PM CDT 1. No acute intracranial abnormality or abnormal enhancement. 2. Microvascular ischemic white matter change. Electronically signed by: Bhupendra Flores M.D. Narrative 06/19/2025 3:07 PM CDT MRI BRAIN W WO CONTRAST 06/19/2025 10:45 AM CLINICAL INDICATION: Evaluate for neurosarcoidosis. COMPARISON: CT head dated 06/13/2025. MRI brain dated 04/30/2024 TECHNIQUE: Multiplanar multisequence MRI of the brain was performed without and with contrast. 15 mL of gadoterate meglumine was administered intravenously. Multiple portions of the study are degraded by motion. FINDINGS: The ventricles and cortical sulci are stable in size and configuration. There is no acute infarct, mass/mass effect or midline shift. Subcortical and periventricular FLAIR/T2 signal intensities likely represent microvascular ischemic white matter change. There are no abnormal areas of enhancement. The basal cisterns are patent. The sellar and suprasellar structures are normal. There are no acute findings in the posterior fossa. There is preservation of normal flow voids in the major intracranial vessels. There is minimal paranasal sinus mucosal thickening. The mastoid air cells are clear. There are no acute findings in the orbits. Procedure Note Bhupendra Flores MD - 06/19/2025 MRI BRAIN W WO CONTRAST 06/19/2025 10:45 AM CLINICAL INDICATION: Evaluate for neurosarcoidosis. COMPARISON: CT head dated 06/13/2025. MRI brain dated 04/30/2024 TECHNIQUE: Multiplanar multisequence MRI of the brain was performed without and with contrast. 15 mL of gadoterate meglumine was administered intravenously. Multiple portions of the study are degraded by motion. FINDINGS: The ventricles and cortical sulci are stable in size and configuration. There is no acute infarct, mass/mass effect or midline shift. Subcortical and periventricular FLAIR/T2 signal intensities likely represent microvascular ischemic white matter change. There are no abnormal areas of enhancement. The basal cisterns are patent. The sellar and suprasellar structures are normal. There are no acute findings in the posterior fossa. There is preservation of normal flow voids in the major intracranial vessels. There is minimal paranasal sinus mucosal thickening. The mastoid air cells are clear. There are no acute findings in the orbits. IMPRESSION: 1. No acute intracranial abnormality or abnormal enhancement. 2. Microvascular ischemic white matter change. Electronically signed by: Bhupendra Flores M.D. us Gordo Corrales MD IMG MRI PROCEDURES Tawnya l Result * MRI Spine Total Complete W WO Contrast (06/19/2025 11:57 AM CDT) Anatomical Region Laterality Modality Spine N/A Magnetic Resonan ce 06/19/2025 3:07 PM CDT Impressions 06/19/2025 3:07 PM CDT 1. Motion degraded exam. 2. Severe spondylosis at multiple levels in the cervical, thoracic and lumbar spine, overall stable compared with prior MRIs dated 05/02/2025. 3. 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 4. Moderate to severe thoracic spinal canal stenosis at T6-7. 5. No spinal cord signal abnormality or abnormal enhancement to suggest neurosarcoidosis. Electronically signed by: Bhupendra Flores M.D. Narrative 06/19/2025 3:07 PM CDT EXAMINATION: 1. Magnetic resonance imaging (MRI) of the cervical spine without and with contrast 2. Magnetic resonance imaging (MRI) of the thoracic spine without and with contrast 3. Magnetic resonance imaging (MRI) of the lumbar spine without and with contrast HISTORY: Evaluate for possible neurosarcoidosis. TECHNIQUE: Multiplanar multi-weighted MRI of the cervical spine was performed without and with intravenous contrast using the standard protocol. Multiplanar multi-weighted MRI of the thoracic was performed without and with intravenous contrast using the standard protocol. Multiplanar multi-weighted MRI of the lumbar spine was performed without and with intravenous contrast using the standard protocol. Multiple portions of the study are degraded by motion. Contrast information: 15 mL Gadoterate Meglumine IV COMPARISON: MRI spine dated 05/02/2025. FINDINGS: CERVICAL SPINE: There is increased cervical lordosis and mild anterolisthesis at C3-4. Alignment is stable compared with prior MRI cervical spine dated 05/02/2025. The patient is status post C5-6 anterior fusion. There is no compression deformity or acute marrow signal abnormality. The prevertebral soft tissues are normal. There are no acute findings in the soft tissues of the neck. There is no cervical spinal cord signal abnormality or abnormal enhancement. There is severe multilevel cervical spondylosis. Evaluation of individual intervertebral levels is as follows: C2-3: Right paracentral disc bulge indents the right ventral thecal sac. Mild ligamentous thickening and facet degenerative change. Moderate central and bilateral neural foraminal stenosis. C3-4: Diffuse disc bulge, ligamentous thickening and facet degenerative change. Severe central stenosis with component of cord compression. Severe bilateral neural foraminal stenosis. C4-5: Moderate ligamentous thickening and marked left facet hypertrophy. Moderate central, severe left worse than right neural foraminal stenosis. C5-6: Osteophytic ridging, ligamentous thickening and facet degenerative change. Mild central and severe bilateral neural foraminal stenosis. C6-7: Mild disc bulge, ligamentous thickening and facet degenerative change. Mild central and moderate bilateral neural foraminal stenosis. C7-T1: Moderate left ligamentous thickening that indents the posterior aspect of the thecal sac. Moderate central and mild bilateral neural foraminal stenosis. THORACIC SPINE: There is mild increased thoracic kyphosis. Otherwise, there is preservation of normal vertebral body alignment. There is loss of disc space height at multiple levels. There is no compression deformity or acute marrow signal abnormality. The prevertebral soft tissues are normal. There may be atelectasis in the left lung. Additionally, there are patchy areas of enhancement in both lungs. There are no acute findings in the visualized chest. There are disc herniations at T5-6 through T7-8 and at T9-10 through T11-12. There is posterior ligamentous thickening at T6-7, T8-9, T10-11 and T11-12. There is moderate to severe spinal canal stenosis at T6-7. There is moderate central stenosis at T9-10 through T11-12. This is unchanged compared with prior MRI dated 05/02/2025. There is no thoracic spinal cord signal abnormality or abnormal enhancement.. LUMBAR SPINE: There is mild straightening of normal lumbar lordosis. There is severe loss of disc space height at L2-3 through L4-5. There is no compression deformity or acute marrow signal abnormality. The conus is normal in appearance and terminates at L1-2. There is no abnormal enhancement along the conus. There is central stenosis at L2-3 through L4-5 that is unchanged compared with recent MRI. This is moderate in severity at L2-3 and severe at L3-4 and L4-5. There is postsurgical change from laminectomy at L3-4 and L4-5. There are small annular fissures at L3-4 and L4-5. There is neural foraminal narrowing at L3-4 through L5-S1, most pronounced on the right at L5-S1. Procedure Note Bhupendra Flores MD - 06/19/2025 EXAMINATION: 1. Magnetic resonance imaging (MRI) of the cervical spine without and with contrast 2. Magnetic resonance imaging (MRI) of the thoracic spine without and with contrast 3. Magnetic resonance imaging (MRI) of the lumbar spine without and with contrast HISTORY: Evaluate for possible neurosarcoidosis. TECHNIQUE: Multiplanar multi-weighted MRI of the cervical spine was performed without and with intravenous contrast using the standard protocol. Multiplanar multi-weighted MRI of the thoracic was performed without and with intravenous contrast using the standard protocol. Multiplanar multi-weighted MRI of the lumbar spine was performed without and with intravenous contrast using the standard protocol. Multiple portions of the study are degraded by motion. Contrast information: 15 mL Gadoterate Meglumine IV COMPARISON: MRI spine dated 05/02/2025. FINDINGS: CERVICAL SPINE: There is increased cervical lordosis and mild anterolisthesis at C3-4. Alignment is stable compared with prior MRI cervical spine dated 05/02/2025. The patient is status post C5-6 anterior fusion. There is no compression deformity or acute marrow signal abnormality. The prevertebral soft tissues are normal. There are no acute findings in the soft tissues of the neck. There is no cervical spinal cord signal abnormality or abnormal enhancement. There is severe multilevel cervical spondylosis. Evaluation of individual intervertebral levels is as follows: C2-3: Right paracentral disc bulge indents the right ventral thecal sac. Mild ligamentous thickening and facet degenerative change. Moderate central and bilateral neural foraminal stenosis. C3-4: Diffuse disc bulge, ligamentous thickening and facet degenerative change. Severe central stenosis with component of cord compression. Severe bilateral neural foraminal stenosis. C4-5: Moderate ligamentous thickening and marked left facet hypertrophy. Moderate central, severe left worse than right neural foraminal stenosis. C5-6: Osteophytic ridging, ligamentous thickening and facet degenerative change. Mild central and severe bilateral neural foraminal stenosis. C6-7: Mild disc bulge, ligamentous thickening and facet degenerative change. Mild central and moderate bilateral neural foraminal stenosis. C7-T1: Moderate left ligamentous thickening that indents the posterior aspect of the thecal sac. Moderate central and mild bilateral neural foraminal stenosis. THORACIC SPINE: There is mild increased thoracic kyphosis. Otherwise, there is preservation of normal vertebral body alignment. There is loss of disc space height at multiple levels. There is no compression deformity or acute marrow signal abnormality. The prevertebral soft tissues are normal. There may be atelectasis in the left lung. Additionally, there are patchy areas of enhancement in both lungs. There are no acute findings in the visualized chest. There are disc herniations at T5-6 through T7-8 and at T9-10 through T11-12. There is posterior ligamentous thickening at T6-7, T8-9, T10-11 and T11-12. There is moderate to severe spinal canal stenosis at T6-7. There is moderate central stenosis at T9-10 through T11-12. This is unchanged compared with prior MRI dated 05/02/2025. There is no thoracic spinal cord signal abnormality or abnormal enhancement.. LUMBAR SPINE: There is mild straightening of normal lumbar lordosis. There is severe loss of disc space height at L2-3 through L4-5. There is no compression deformity or acute marrow signal abnormality. The conus is normal in appearance and terminates at L1-2. There is no abnormal enhancement along the conus. There is central stenosis at L2-3 through L4-5 that is unchanged compared with recent MRI. This is moderate in severity at L2-3 and severe at L3-4 and L4-5. There is postsurgical change from laminectomy at L3-4 and L4-5. There are small annular fissures at L3-4 and L4-5. There is neural foraminal narrowing at L3-4 through L5-S1, most pronounced on the right at L5-S1. IMPRESSION: 1. Motion degraded exam. 2. Severe spondylosis at multiple levels in the cervical, thoracic and lumbar spine, overall stable compared with prior MRIs dated 05/02/2025. 3. 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 4. Moderate to severe thoracic spinal canal stenosis at T6-7. 5. No spinal cord signal abnormality or abnormal enhancement to suggest neurosarcoidosis. Electronically signed by: Bhupendra Flores M.D. Gordo Corrales MD IMG MRI PROCEDURES Tawnya l Result * eGFR (06/19/2025 7:57 AM CDT) eGFR >90 >=60 mL/min/1. 73 [...] interpretive data was last reviewed 2021. Blood 06/19/2025 7:57 AM CDT 06/19/2025 8:06 AM CDT us Nuvia Wetzel [facility] LAB BLOOD ORDERABLES Final R esult [facility] [address] [facility] [employer] [place], [place] [id number] * Calcium, ionized (06/19/2025 7:57 AM CDT) [facility] Calcium, Ionized 4.60 4.50 - 5.10 mg/dL Blood 06/19/2025 7:57 AM CDT 06/19/2025 8:03 AM CDT us Nuvia Wetzel [facility] BLOOD ORDERABLES Final R esult Performing Organization Address City/[facility]/ZIP Co de Phone Number [facility] [address] [employer] [place], [place] [phone] * (ABNORMAL) CBC without differential (06/19/2025 7:57 AM CDT) [facility] WBC 9.63 3.80 - 9.90 K/cumm Hgb 12.1 11.9 - 15.5 g/dL [facility] Hct 37.9 35.6 - 45.5 % [facility] Plt 259 150 - 400 K/cumm [facility] MPV 12.1 9.1 - 12.3 fL [facility] RBC 4.27 3.90 - 5.20 M/cumm [facility] MCV 88.8 81.3 - 96.4 fL [facility] MCH 28.3 27.1 - 33.3 pg [facility] MCHC 31.9(L) 32.3 - 35.7 g/dL [facility] RDW CV 16.5(H) 11.1 - 14.9 % [facility] RDW SD 52.4(H) 35.7 - 48.1 fL [facility] NRBC abs 0.00 0.00 - 0.01 K/cumm [facility] Blood 06/19/2025 7:57 AM CDT 06/19/2025 8:06 AM CDT Gordo Corrales MD LAB BLOOD ORDERABLES Fi nal Result Performing Organization Address City/[facility]/ZIP Co de Phone Number [facility] [address] [place] [address] * (ABNORMAL) Renal function panel (06/19/2025 7:57 AM CDT) Sodium 143 135 - 145 mmol/L Potassium, pl 3.3 3.3 - 4.9 mmol/L [facility] Chloride 106 97 - 110 mmol/L [facility] CO2 28 22 - 32 mmol/L [facility] Anion gap 9 2 - 15 mmol/L [facility] BUN 18 6 - 25 mg/dL [facility] Creatinine 0.68 0.60 - 1.10 mg/dL [facility] Glucose 130 70 - 199 mg/dL [facility] Comment: Interpretive Data Fasting glucose >/= [...] interpretive data was last revised 2022. Calcium 8.6 8.5 - 10.3 mg/dL [facility] Phosphorus, pl 2.3 2.3 - 4.5 mg/dL [facility] Albumin 2.9(L) 3.5 - 5.0 g/dL [facility] Blood 06/19/2025 7:57 AM CDT 06/19/2025 8:06 AM CDT Nuvia Byrd DO LAB BLOOD ORDERABLES Final R esult Performing Organization Address City/[facility]/ZIP Co de Phone Number [facility] [address] Department [employer] [place] [address] * POCT glucose (06/19/2025 5:56 AM CDT) Glucose, POC 122 70 - 199 mg/dL Comment: For Glucose values <35 mg/dl when Hematocrit is >60 mg/dl,the test may not accurately detect significant hypoglycemia,and testing in the Laboratory should be considered if clinically indicated. Blood 06/19/2025 5:56 AM CDT 06/19/2025 5:56 AM CDT Aly Montero MD LAB POCT ORDERABLES - DEVICE Final Result Performing Organization Address [facility] de Phone Number [facility] [address] [facility] [place] [address] * Potassium (06/18/2025 9:57 PM CDT) Potassium, pl 3.6 3.3 - 4.9 mmol/L Blood 06/18/2025 9:57 PM CDT 06/18/2025 9:57 PM CDT Aly Montero MD LAB BLOOD ORDERABLES Final R esult Performing Organization Address [facility] de Phone Number [facility] [address] [facility] [employer] [place], [place] [phone] * (ABNORMAL) POCT glucose (06/18/2025 9:43 PM CDT) Glucose, POC 227(H) 70 - 199 mg/dL Comment: For Glucose values <35 mg/dl when Hematocrit is >60 mg/dl,the test may not accurately detect significant hypoglycemia,and testing in the Laboratory should be considered if clinically indicated. Blood 06/18/2025 9:43 PM CDT 06/18/2025 9:43 PM CDT us Aly Montero MD LAB POCT ORDERABLES - DEVICE Final Result Performing Organization Address [facility] Co de Phone Number [facility] [address] [place] [address] * Potassium (06/18/2025 7:55 PM CDT) Potassium, pl 3.9 3.3 - 4.9 mmol/L Blood 06/18/2025 7:55 PM CDT 06/18/2025 8:44 PM CDT Narrative [facility] - 06/18/2025 9:04 PM CDT Draw 1 hour after potassium IV finishes. Aly Montero MD LAB BLOOD ORDERABLES Final R esult Performing Organization Address [facility]/ZIP Co de Phone Number [facility] [address] [place] [address] * (ABNORMAL) POCT glucose (06/18/2025 4:28 PM CDT) Pathologist [facility] Glucose, POC 235(H) 70 - 199 mg/dL Comment: For Glucose values <35 mg/dl when Hematocrit is >60 mg/dl,the test may not accurately detect significant hypoglycemia,and testing in the Laboratory should be considered if clinically indicated. Blood 06/18/2025 4:28 PM CDT 06/18/2025 4:28 PM CDT us Aly Montero MD LAB POCT ORDERABLES - DEVICE Final Result Performing Organization Address City/[facility] Co de Phone Number [facility] [address] [place] [address] * (ABNORMAL) POCT glucose (06/18/2025 11:47 AM CDT) Glucose, POC 212(H) 70 - 199 mg/dL Comment: For Glucose values <35 mg/dl when Hematocrit is >60 mg/dl,the test may not accurately detect significant hypoglycemia,and testing in the Laboratory should be considered if clinically indicated. Blood 06/18/2025 11:4 7 AM CDT 06/18/2025 11:47 AM CDT us Aly Montero MD LAB POCT ORDERABLES - DEVICE Final Result Performing Organization Address [facility] Co de Phone Number [facility] [address] Department [employer] [place] [address] * eGFR (06/18/2025 9:38 AM CDT) eGFR >90 >=60 mL/min/1. 73 [...] interpretive data was last reviewed 2021. Blood 06/18/2025 9:38 AM CDT 06/18/2025 10:15 AM CDT us Nuvia Byrd DO LAB BLOOD ORDERABLES Final R esult Performing Organization Address City/[facility]/ZIP Co de Phone Number [facility] [address] [employer] [place], [place] [id number] * Calcium, ionized (06/18/2025 9:38 AM CDT) Calcium, Ionized 4.67 4.50 - 5.10 mg/dL Blood 06/18/2025 9:38 AM CDT 06/18/2025 9:44 AM CDT us Nuvia Wetzel [facility] LAB BLOOD ORDERABLES Final R esult Performing Organization Address City/[facility]/ZIP Co de Phone Number [facility] [address] [employer] [place], [place] [phone] * (ABNORMAL) CBC without differential (06/18/2025 9:38 AM CDT) WBC 9.79 3.80 - 9.90 K/cumm Hgb 10.6(L) 11.9 - 15.5 g/dL [facility] Hct 34.4(L) 35.6 - 45.5 % [facility] Plt 263 150 - 400 K/cumm [facility] MPV 12.4(H) 9.1 - 12.3 fL [facility] RBC 3.82(L) 3.90 - 5.20 M/cumm [facility] MCV 90.1 81.3 - 96.4 fL [facility] MCH 27.7 27.1 - 33.3 pg [facility] MCHC 30.8(L) 32.3 - 35.7 g/dL [facility] RDW CV 16.3(H) 11.1 - 14.9 % [facility] RDW SD 52.0(H) 35.7 - 48.1 fL [facility] NRBC abs 0.00 0.00 - 0.01 K/cumm [facility] Blood 06/18/2025 9:38 AM CDT 06/18/2025 10:15 AM CDT us Gordo Corrales MD LAB BLOOD ORDERABLES Fi nal Result [facility] [address] Department [employer] [place] [address] * (ABNORMAL) Renal function panel (06/18/2025 9:38 AM CDT) Sodium 144 135 - 145 mmol/L Potassium, pl 2.4(C) 3.3 - 4.9 mmol/L [facility] Comment:Critical result call ed to and read back by ARACELI NOBLES RN on [phone] 06/18/2025 to [id number] Chloride 108 97 - 110 mmol/L [facility] CO2 25 22 - 32 mmol/L [facility] Anion gap 11 2 - 15 mmol/L [facility] BUN 19 6 - 25 mg/dL [facility] Creatinine 0.65 0.60 - 1.10 mg/dL [facility] Glucose 193 70 - 199 mg/dL [facility] Comment: Interpretive Data Fasting glucose >/= [...] interpretive data was last revised 2022. Calcium 8.0(L) 8.5 - 10.3 mg/dL [facility] Phosphorus, pl 1.9(L) 2.3 - 4.5 mg/dL [facility] Albumin 2.5(L) 3.5 - 5.0 g/dL [facility] Blood 06/18/2025 9:38 AM CDT 06/18/2025 10:15 AM CDT Nuvia Byrd DO LAB BLOOD ORDERABLES Final R esult [facility] [address] Department [place] [address] * POCT glucose (06/18/2025 6:28 AM CDT) [facility] Glucose, POC 141 70 - 199 mg/dL Comment: For Glucose values <35 mg/dl when Hematocrit is >60 mg/dl,the test may not accurately detect significant hypoglycemia,and testing in the Laboratory should be considered if clinically indicated. Blood 06/18/2025 6:28 AM CDT 06/18/2025 6:28 AM CDT Aly Montero MD LAB POCT ORDERABLES - DEVICE Final Result Performing Organization Address [facility] de Phone Number [facility] [address] [facility] [place] [address] * (ABNORMAL) POCT glucose (06/17/2025 9:01 PM CDT) Glucose, POC 304(H) 70 - 199 mg/dL Comment: For Glucose values <35 mg/dl when Hematocrit is >60 mg/dl,the test may not accurately detect significant hypoglycemia,and testing in the Laboratory should be considered if clinically indicated. Blood 06/17/2025 9:01 PM CDT 06/17/2025 9:01 PM CDT Aly Montero MD LAB POCT ORDERABLES - DEVICE Final Result Performing Organization Address [facility] de Phone Number [facility] [address] [place] [address] * (ABNORMAL) Potassium (06/17/2025 6:38 PM CDT) Pathologist [facility] Potassium, pl 3.1(L) 3.3 - 4.9 mmol/L Blood 06/17/2025 6:38 PM CDT 06/17/2025 6:55 PM CDT Result [facility] Aly Montero MD LAB BLOOD ORDERABLES Final R esult Performing Organization Address [facility] de Phone Number [facility] [address] [facility] [employer] [place], [place] [phone] * (ABNORMAL) POCT glucose (06/17/2025 4:16 PM CDT) Glucose, POC 268(H) 70 - 199 mg/dL Comment: For Glucose values <35 mg/dl when Hematocrit is >60 mg/dl,the test may not accurately detect significant hypoglycemia,and testing in the Laboratory should be considered if clinically indicated. Blood 06/17/2025 4:16 PM CDT 06/17/2025 4:16 PM CDT Aly Montero MD LAB POCT ORDERABLES - DEVICE Final Result Performing Organization Address [facility] Co de Phone Number [facility] [address] [facility] [place] [address] * POCT glucose (06/17/2025 11:15 AM CDT) Glucose, POC 192 70 - 199 mg/dL Comment: For Glucose values <35 mg/dl when Hematocrit is >60 mg/dl,the test may not accurately detect significant hypoglycemia,and testing in the Laboratory should be considered if clinically indicated. Blood 06/17/2025 11:1 5 AM CDT 06/17/2025 11:15 AM CDT Result [facility] Aly Montero MD LAB POCT ORDERABLES - DEVICE Final Result Performing Organization Address [facility] de Phone Number [facility] [address] [facility] [place] [address] * POCT glucose (06/17/2025 6:41 AM CDT) Glucose, POC 170 70 - 199 mg/dL Comment: For Glucose values <35 mg/dl when Hematocrit is >60 mg/dl,the test may not accurately detect significant hypoglycemia,and testing in the Laboratory should be considered if clinically indicated. Blood 06/17/2025 6:41 AM CDT 06/17/2025 6:41 AM CDT Aly Montero MD LAB POCT ORDERABLES - DEVICE Final Result Performing Organization Address [facility] Co de Phone Number [facility] [address] [facility] [place] [address] * eGFR (06/17/2025 6:39 AM CDT) eGFR 88 >=60 mL/min/1. 73 m2 Comment: Interpretive Data [...] interpretive data was last reviewed 2021. Blood 06/17/2025 6:39 AM CDT 06/17/2025 6:48 AM CDT us Nuvia Damari [facility] LAB BLOOD ORDERABLES Final R esult Performing Organization Address City/[facility]/ZIP Co de Phone Number [facility] [address] [employer] [place], [place] [phone] * (ABNORMAL) Calcium, ionized (06/17/2025 6:39 AM CDT) Calcium, Ionized 5.24(H) 4.50 - 5.10 mg/dL Blood 06/17/2025 6:39 AM CDT 06/17/2025 6:44 AM CDT Nuvia Wetzel [facility] LAB BLOOD ORDERABLES Final R esult Performing Organization Address [facility] Co de Phone Number [facility] [address] [employer] [place], [place] [phone] * (ABNORMAL) CBC without differential (06/17/2025 6:39 AM CDT) [facility] WBC 10.10(H) 3.80 - 9.90 K/cumm Hgb 12.2 11.9 - 15.5 g/dL [facility] Hct 37.3 35.6 - 45.5 % [facility] Plt 308 150 - 400 K/cumm [facility] MPV 11.9 9.1 - 12.3 fL [facility] RBC 4.31 3.90 - 5.20 M/cumm [facility] MCV 86.5 81.3 - 96.4 fL [facility] MCH 28.3 27.1 - 33.3 pg [facility] MCHC 32.7 32.3 - 35.7 g/dL [facility] RDW CV 15.8(H) 11.1 - 14.9 % [facility] RDW SD 49.5(H) 35.7 - 48.1 fL [facility] NRBC abs 0.00 0.00 - 0.01 K/cumm [facility] Blood 06/17/2025 6:39 AM CDT 06/17/2025 6:49 AM CDT Gordo Corrales MD LAB BLOOD ORDERABLES nal Result [facility] [address] Department of Laboratories [place], [place] [phone] * (ABNORMAL) Renal function panel (06/17/2025 6:39 AM CDT) [facility] Sodium 146(H) 135 - 145 mmol/L Potassium, pl 3.0(L) 3.3 - 4.9 mmol/L [facility] Chloride 106 97 - 110 mmol/L [facility] CO2 29 22 - 32 mmol/L [facility] Anion gap 11 2 - 15 mmol/L [facility] BUN 21 6 - 25 mg/dL [facility] Creatinine 0.72 0.60 - 1.10 mg/dL [facility] Glucose 168 70 - 199 mg/dL [facility] Comment: Interpretive Data Fasting glucose >/= [...] interpretive data was last revised 2022. Calcium 9.8 8.5 - 10.3 mg/dL [facility] Phosphorus, pl 2.0(L) 2.3 - 4.5 mg/dL [facility] Albumin 3.2(L) 3.5 - 5.0 g/dL [facility] Blood 06/17/2025 6:39 AM CDT 06/17/2025 6:48 AM CDT us Nuvia Byrd DO LAB BLOOD ORDERABLES Final R esult Performing Organization Address City/[facility]/ZIP Co de Phone Number [facility] [address] [place] [address] * (ABNORMAL) POCT glucose (06/16/2025 10:15 PM CDT) [facility] Glucose, POC 361(H) 70 - 199 mg/dL Comment: For Glucose values <35 mg/dl when Hematocrit is >60 mg/dl,the test may not accurately detect significant hypoglycemia,and testing in the Laboratory should be considered if clinically indicated. Blood 06/16/2025 10:1 5 PM CDT 06/16/2025 10:15 PM CDT us Aly Montero MD LAB POCT ORDERABLES - DEVICE Final Result Performing Organization Address City/[facility]/ZIP Co de Phone Number [facility] [address] [employer] [place], [place] [phone] * eGFR (06/16/2025 7:24 AM CDT) eGFR 80 >=60 mL/min/1. 73 m2 Comment: Interpretive Data [...] interpretive data was last reviewed 2021. Blood 06/16/2025 7:24 AM CDT 06/16/2025 7:36 AM CDT [facility] BLOOD ORDERABLES Final R esult [facility] [address] [place], [place] [id number] * (ABNORMAL) Calcium, ionized (06/16/2025 7:24 AM CDT) Pathologist [facility] Calcium, Ionized 5.58(H) 4.50 - 5.10 mg/dL Blood 06/16/2025 7:24 AM CDT 06/16/2025 7:30 AM CDT [facility] BLOOD ORDERABLES Final R esult [facility] [address] [place] [address] * (ABNORMAL) CBC without differential (06/16/2025 7:24 AM CDT) Pathologist [facility] WBC 6.88 3.80 - 9.90 K/cumm Hgb 12.5 11.9 - 15.5 g/dL [facility] Hct 38.6 35.6 - 45.5 % [facility] Plt 283 150 - 400 K/cumm [facility] MPV 11.7 9.1 - 12.3 fL [facility] RBC 4.42 3.90 - 5.20 M/cumm [facility] MCV 87.3 81.3 - 96.4 fL [facility] MCH 28.3 27.1 - 33.3 pg [facility] MCHC 32.4 32.3 - 35.7 g/dL [facility] RDW CV 15.8(H) 11.1 - 14.9 % [facility] RDW SD 49.8(H) 35.7 - 48.1 fL [facility] NRBC abs 0.00 0.00 - 0.01 K/cumm [facility] Blood 06/16/2025 7:24 AM CDT 06/16/2025 7:35 AM CDT Gordo Corrales MD LAB BLOOD ORDERABLES Fi nal Result Performing Organization Address City/[facility]/ZIP Co de Phone Number [facility] [address] [place], [place] [phone] * Phosphorus (06/16/2025 7:24 AM CDT) [facility] Phosphorus, pl 2.4 2.3 - 4.5 mg/dL Blood 06/16/2025 7:24 AM CDT 06/16/2025 7:36 AM CDT Nuvia Byrd DO LAB BLOOD ORDERABLES Final R esult [facility] [address] [place] [address] * Magnesium (06/16/2025 7:24 AM CDT) Magnesium 1.4 1.4 - 2.5 mg/dL Blood 06/16/2025 7:24 AM CDT 06/16/2025 7:36 AM CDT Richard Mckeon MD LAB BLOOD ORDERABLES Final Resul t Performing Organization Address [facility] Co de Phone Number [facility] [address] Department of Laboratories [place], [place] [id number] * (ABNORMAL) Bilirubin, direct (06/16/2025 7:24 AM CDT) Pathologist [facility] Bilirubin, direct 0.7(H) 0.1 - 0.3 mg/dL Blood 06/16/2025 7:24 AM CDT 06/16/2025 7:36 AM CDT Nuvia Byrd DO LAB BLOOD ORDERABLES Final R esult Performing Organization Address [facility] de Phone Number [facility] [address] [place] [address] * (ABNORMAL) Comprehensive metabolic panel (06/16/2025 7:24 AM CDT) [facility] Sodium 141 135 - 145 mmol/L Potassium, pl 2.9(L) 3.3 - 4.9 mmol/L [facility] Chloride 101 97 - 110 mmol/L [facility] CO2 30 22 - 32 mmol/L [facility] Anion gap 10 2 - 15 mmol/L [facility] BUN 23 6 - 25 mg/dL [facility] Creatinine 0.78 0.60 - 1.10 mg/dL [facility] Glucose 219(H) 70 - 199 mg/dL [facility] Comment: Interpretive Data Fasting glucose >/= [...] interpretive data was last revised 2022. Calcium 10.3 8.5 - 10.3 mg/dL [facility] Bilirubin, total 1.1 0.1 - 1.2 mg/dL [facility] Protein, pl 6.0(L) 6.5 - 8.5 g/dL [facility] Albumin 3.4(L) 3.5 - 5.0 g/dL [facility] Alk phos 236(H) 40 - 130 Units/L [facility] ALT 35 7 - 45 Units/L [facility] AST 22 10 - 45 Units/L [facility] Blood 06/16/2025 7:24 AM CDT 06/16/2025 7:36 AM CDT us Nuvia Byrd DO LAB BLOOD ORDERABLES Final R esult [facility] [address] Department [place] [address] * eGFR (06/15/2025 5:29 AM CDT) eGFR 61 >=60 mL/min/1. 73 m2 Comment: Interpretive Data [...] interpretive data was last reviewed 2021. Blood 06/15/2025 5:29 AM CDT 06/15/2025 5:48 AM CDT us Nuvia Byrd LAB BLOOD ORDERABLES Final R esult [facility] [address] Department [place] [address] * (ABNORMAL) Differential, auto (06/15/2025 5:29 AM CDT) Neutrophil abs 6.84(H) 1.50 - 6.50 K/cumm Imm gran abs 0.05 0.00 - 0.10 K/cumm [facility] Lymphocyte abs 0.71(L) 0.80 - 3.30 K/cumm [facility] Monocyte abs 1.31(H) 0.20 - 0.80 K/cumm [facility] Eosinophil abs 0.00 0.00 - 0.50 K/cumm [facility] Basophil abs 0.01 0.00 - 0.10 K/cumm [facility] Neutrophil pct 76.6 % [facility] Comment: Interpretive Data Percent cell count reference ranges are not reported, since discordance with absolute values may lead to misinterpretation of CBC data. Current Interpretive Data was last revised on 2017. Imm gran pct 0.6 % [facility] Comment: Interpretive Data Percent cell count reference ranges are not reported, since discordance with absolute values may lead to misinterpretation of CBC data. Current Interpretive Data was last revised on 2017. Lymphocyte pct 8.0 % [facility] Comment: Interpretive Data Percent cell count reference ranges are not reported, since discordance with absolute values may lead to misinterpretation of CBC data. Current Interpretive Data was last revised on 2017. Monocyte pct 14.7 % [facility] Comment: Interpretive Data Percent cell count reference ranges are not reported, since discordance with absolute values may lead to misinterpretation of CBC data. Current Interpretive Data was last revised on 2017. Eosinophil pct 0.0 % [facility] Comment: Interpretive Data Percent cell count reference ranges are not reported, since discordance with absolute values may lead to misinterpretation of CBC data. Current Interpretive Data was last revised on 2017. Basophil pct 0.1 % [facility] Comment: Interpretive Data Percent cell count reference ranges are not reported, since discordance with absolute values may lead to misinterpretation of CBC data. Current Interpretive Data was last revised on 2017. Blood 06/15/2025 5:29 AM CDT 06/15/2025 5:46 AM CDT us Richard Mckeon MD LAB BLOOD ORDERABLES Final Resul t [facility] [address] [employer] [place], [place] [phone] * (ABNORMAL) Calcium, ionized (06/15/2025 5:29 AM CDT) Calcium, Ionized 5.81(H) 4.50 - 5.10 mg/dL Blood 06/15/2025 5:29 AM CDT 06/15/2025 5:42 AM CDT us Nuvia Byrd DO LAB BLOOD ORDERABLES Final R esult Performing Organization Address City/[facility]/ZIP Co de Phone Number [facility] [address] [place] [address] * (ABNORMAL) CBC with auto differential (06/15/2025 5:29 AM CDT) WBC 8.92 3.80 - 9.90 K/cumm Hgb 12.7 11.9 - 15.5 g/dL [facility] Hct 40.3 35.6 - 45.5 % [facility] Plt 284 150 - 400 K/cumm [facility] MPV 12.0 9.1 - 12.3 fL [facility] RBC 4.51 3.90 - 5.20 M/cumm [facility] MCV 89.4 81.3 - 96.4 fL [facility] MCH 28.2 27.1 - 33.3 pg [facility] MCHC 31.5(L) 32.3 - 35.7 g/dL [facility] RDW CV 16.0(H) 11.1 - 14.9 % [facility] RDW SD 51.6(H) 35.7 - 48.1 fL [facility] NRBC abs 0.00 0.00 - 0.01 K/cumm [facility] Blood 06/15/2025 5:29 AM CDT 06/15/2025 5:46 AM CDT us Richard Mckeon MD LAB BLOOD ORDERABLES Final Resul t Performing Organization Address City/[facility]/ZIP Co de Phone Number [facility] [address] Department [employer] [place], [place] [phone] * Phosphorus (06/15/2025 5:29 AM CDT) Phosphorus, pl 2.5 2.3 - 4.5 mg/dL Blood 06/15/2025 5:29 AM CDT 06/15/2025 5:48 AM CDT us Nuvia Byrd DO LAB BLOOD ORDERABLES Final R esult Performing Organization Address [facility] Co de Phone Number [facility] [address] [place] [address] * Magnesium (06/15/2025 5:29 AM CDT) Magnesium 1.5 1.4 - 2.5 mg/dL Blood 06/15/2025 5:29 AM CDT 06/15/2025 5:48 AM CDT us Richard Mckeon MD LAB BLOOD ORDERABLES Final Resul t Performing Organization Address City/[facility]/ZIP Co de Phone Number [facility] [address] [employer] [place], [place] [phone] * (ABNORMAL) Bilirubin, direct (06/15/2025 5:29 AM CDT) Bilirubin, direct 0.4(H) 0.1 - 0.3 mg/dL Comment:Slightly Hemolyzed S pecimen Blood 06/15/2025 5:29 AM CDT 06/15/2025 5:48 AM CDT Nuvia Byrd LAB BLOOD ORDERABLES Final R esult [facility] [address] Department [place] [address] * (ABNORMAL) Comprehensive metabolic panel (06/15/2025 5:29 AM CDT) Sodium 146(H) 135 - 145 mmol/L Potassium, pl 3.5 3.3 - 4.9 mmol/L [facility] Chloride 106 97 - 110 mmol/L [facility] CO2 30 22 - 32 mmol/L [facility] Anion gap 10 2 - 15 mmol/L [facility] BUN 31(H) 6 - 25 mg/dL [facility] Creatinine 0.98 0.60 - 1.10 mg/dL [facility] Glucose 138 70 - 199 mg/dL [facility] Comment: Interpretive Data Fasting glucose >/= [...] interpretive data was last revised 2022. Calcium 10.8(H) 8.5 - 10.3 mg/dL [facility] Bilirubin, total 0.9 0.1 - 1.2 mg/dL [facility] Protein, pl 5.8(L) 6.5 - 8.5 g/dL [facility] Albumin 3.2(L) 3.5 - 5.0 g/dL [facility] Alk phos 201(H) 40 - 130 Units/L [facility] ALT 26 7 - 45 Units/L [facility] AST 22 10 - 45 Units/L [facility] Comment:Slightly Hemolyzed S pecimen Blood 06/15/2025 5:29 AM CDT 06/15/2025 5:48 AM CDT Nuvia Byrd DO LAB BLOOD ORDERABLES Final R esult Performing Organization Address [facility] Co de Phone Number [facility] [address] Department [employer] [place], [place] [phone] * CP-CRE culture, surveillance Rectal swab (06/14/2025 12:31 PM CDT) Report Final Report: Negative Comment:Testing performed by : [facility], [address] [place] [address]., [address] Rectal swab 06/14/2025 12:3 1 PM CDT 06/14/2025 5:39 PM CDT Narrative [facility] - 06/16/2025 12:25 PM CDT Interpretive Data The screening agar used for the detection of carbapenemase-producing Enterobacterales (CP-CRE) has not been approved by the Food and Drug Administration. The performance characteristics of this medium have been evaluated and verified by the [facility]. This media demonstrates highest sensitivity for KPC and NDM-1 producing isolates. This screening assay is exclusively intended for infection control and surveillance, not for patient diagnosis or treatment purposes. Current interpretive data was last revised on 2023. us Matti Barrientos MD LAB MICROBIOLOGY - GENERA L ORDERABLES Final Result Performing Organization Address [facility]/ZIP Co de Phone Number [facility] [address] Department [employer] [place], [place] [phone] * Aldolase (06/14/2025 12:09 PM CDT) Aldolase 6.0 0.1 - 8.0 Units/L Comment:Testing performed by : [facility], [address] [place]., [address] Blood 06/14/2025 12:0 9 PM CDT 06/14/2025 5:13 PM CDT Richard Mckeon MD LAB BLOOD ORDERABLES Final Resul t [facility] [address] [place] [employer] [place] [address] * (ABNORMAL) Creatine kinase (CK), total (06/14/2025 12:09 PM CDT) CK 15(L) 30 - 200 Units/L Blood 06/14/2025 12:0 9 PM CDT 06/14/2025 12:17 PM CDT Richard Mckeon MD LAB BLOOD ORDERABLES Final Resul t Performing Organization Address City/[facility]/ZIP Co de Phone Number [facility] [address] [place] [address] * (ABNORMAL) eGFR (06/14/2025 6:52 AM CDT) eGFR 55(L) >=60 mL/min/1. 73 m2 Comment: Interpretive Data [...] Inclusion of Race in Diagnosing Kidney Disease, SN 2020). The CKD-EPI equation should not be used for patients with unstable renal function and has not been validated in children and those over 70. Current interpretive data was last reviewed 2021. Blood 06/14/2025 6:52 AM CDT 06/14/2025 7:13 AM CDT us Nuvia Byrd DO LAB BLOOD ORDERABLES Final R esult [facility] [address] Department [place] [address] * (ABNORMAL) Differential, auto (06/14/2025 6:52 AM CDT) Neutrophil abs 11.18(H) 1.50 - 6.50 K/cumm Imm gran abs 0.11(H) 0.00 - 0.10 K/cumm [facility] Lymphocyte abs 1.27 0.80 - 3.30 K/cumm [facility] Monocyte abs 2.20(H) 0.20 - 0.80 K/cumm [facility] Eosinophil abs 0.01 0.00 - 0.50 K/cumm [facility] Basophil abs 0.03 0.00 - 0.10 K/cumm [facility] Neutrophil pct 75.5 % [facility] Comment: Interpretive Data Percent cell count reference ranges are not reported, since discordance with absolute values may lead to misinterpretation of CBC data. Current Interpretive Data was last revised on 2017. Imm gran pct 0.7 % [facility] Comment: Interpretive Data Percent cell count reference ranges are not reported, since discordance with absolute values may lead to misinterpretation of CBC data. Current Interpretive Data was last revised on 2017. Lymphocyte pct 8.6 % [facility] Comment: Interpretive Data Percent cell count reference ranges are not reported, since discordance with absolute values may lead to misinterpretation of CBC data. Current Interpretive Data was last revised on 2017. Monocyte pct 14.9 % [facility] Comment: Interpretive Data Percent cell count reference ranges are not reported, since discordance with absolute values may lead to misinterpretation of CBC data. Current Interpretive Data was last revised on 2017. Eosinophil pct 0.1 % [facility] Comment: Interpretive Data Percent cell count reference ranges are not reported, since discordance with absolute values may lead to misinterpretation of CBC data. Current Interpretive Data was last revised on 2017. Basophil pct 0.2 % [facility] Comment: Interpretive Data Percent cell count reference ranges are not reported, since discordance with absolute values may lead to misinterpretation of CBC data. Current Interpretive Data was last revised on 2017. Blood 06/14/2025 6:52 AM CDT 06/14/2025 7:13 AM CDT Richard Mckeon MD LAB BLOOD ORDERABLES Final Resul t Performing Organization Address [facility] Co de Phone Number [facility] [address] [employer] [place], [place] [phone] * (ABNORMAL) Calcium, ionized (06/14/2025 6:52 AM CDT) Calcium, Ionized 6.11(H) 4.50 - 5.10 mg/dL Blood 06/14/2025 6:52 AM CDT 06/14/2025 6:55 AM CDT Nuvia Byrd DO LAB BLOOD ORDERABLES Final R esult [facility] [address] [place] [address] * (ABNORMAL) CBC with auto differential (06/14/2025 6:52 AM CDT) WBC 14.80(H) 3.80 - 9.90 K/cumm Hgb 12.7 11.9 - 15.5 g/dL [facility] Hct 40.1 35.6 - 45.5 % [facility] Plt 392 150 - 400 K/cumm [facility] MPV 11.9 9.1 - 12.3 fL [facility] RBC 4.51 3.90 - 5.20 M/cumm [facility] MCV 88.9 81.3 - 96.4 fL [facility] MCH 28.2 27.1 - 33.3 pg [facility] MCHC 31.7(L) 32.3 - 35.7 g/dL [facility] RDW CV 16.1(H) 11.1 - 14.9 % [facility] RDW SD 51.5(H) 35.7 - 48.1 fL [facility] NRBC abs 0.00 0.00 - 0.01 K/cumm [facility] Blood 06/14/2025 6:52 AM CDT 06/14/2025 7:13 AM CDT Richard Mckeon MD LAB BLOOD ORDERABLES Final Resul t Performing Organization Address City/[facility]/ZIP Co de Phone Number [facility] [address] [place] [address] * Phosphorus (06/14/2025 6:52 AM CDT) Phosphorus, pl 2.6 2.3 - 4.5 mg/dL Blood 06/14/2025 6:52 AM CDT 06/14/2025 7:13 AM CDT Nuvia Byrd DO LAB BLOOD ORDERABLES Final R esult [facility] [address] [place] [address] * Magnesium (06/14/2025 6:52 AM CDT) Magnesium 1.6 1.4 - 2.5 mg/dL Blood 06/14/2025 6:52 AM CDT 06/14/2025 7:13 AM CDT Richard Mckeon MD LAB BLOOD ORDERABLES Final Resul t [facility] [address] [employer] [place], [place] [id number] * Bilirubin, direct (06/14/2025 6:52 AM CDT) Pathologist [facility] Bilirubin, direct 0.3 0.1 - 0.3 mg/dL Blood 06/14/2025 6:52 AM CDT 06/14/2025 7:13 AM CDT us Nuvia Byrd DO LAB BLOOD ORDERABLES Final R esult Performing Organization Address City/[facility]/ZIP Co de Phone Number [facility] [address] [place] [address] * (ABNORMAL) Comprehensive metabolic panel (06/14/2025 6:52 AM CDT) [facility] Sodium 143 135 - 145 mmol/L Potassium, pl 3.3 3.3 - 4.9 mmol/L [facility] Chloride 103 97 - 110 mmol/L [facility] CO2 28 22 - 32 mmol/L [facility] Anion gap 12 2 - 15 mmol/L [facility] BUN 31(H) 6 - 25 mg/dL [facility] Creatinine 1.07 0.60 - 1.10 mg/dL [facility] Glucose 144 70 - 199 mg/dL [facility] Comment: Interpretive Data Fasting glucose >/= [...] interpretive data was last revised 2022. Calcium 12.1(H) 8.5 - 10.3 mg/dL [facility] Bilirubin, total 0.5 0.1 - 1.2 mg/dL [facility] Protein, pl 6.1(L) 6.5 - 8.5 g/dL [facility] Albumin 3.4(L) 3.5 - 5.0 g/dL [facility] Alk phos 232(H) 40 - 130 Units/L [facility] ALT 29 7 - 45 Units/L [facility] AST 26 10 - 45 Units/L [facility] Blood 06/14/2025 6:52 AM CDT 06/14/2025 7:13 AM CDT Nuvia Byrd DO LAB BLOOD ORDERABLES Final R esult Performing Organization Address [facility] Co de Phone Number [facility] [address] [employer] [place], [place] [phone] * (ABNORMAL) POCT glucose (06/13/2025 8:53 PM CDT) Glucose, POC 213(H) 70 - 199 mg/dL Comment: For Glucose values <35 mg/dl when Hematocrit is >60 mg/dl,the test may not accurately detect significant hypoglycemia,and testing in the Laboratory should be considered if clinically indicated. Blood 06/13/2025 8:53 PM CDT 06/13/2025 8:53 PM CDT Richard Mckeon MD LAB POCT ORDERABLES - DEVICE Fin al Result Performing Organization Address [facility] Co de Phone Number [facility] [address] [employer] [place], [place] [phone] * POCT glucose (06/13/2025 6:54 PM CDT) Glucose, POC 199 70 - 199 mg/dL Comment: For Glucose values <35 mg/dl when Hematocrit is >60 mg/dl,the test may not accurately detect significant hypoglycemia,and testing in the Laboratory should be considered if clinically indicated. Blood 06/13/2025 6:54 PM CDT 06/13/2025 6:54 PM CDT us Richard Mckeon MD LAB POCT ORDERABLES - DEVICE Fin al Result [facility] [address] Department [place] [address] * CT Head WO Contrast (06/13/2025 5:37 PM CDT) Anatomical Region Laterality Modality Head and Neck N/A Computed Tomogra phy 06/13/2025 5:47 PM CDT Impressions 06/13/2025 5:53 PM CDT No acute intracranial process. Dictated by: Trenton Harrell MD The radiology attending physician has personally reviewed this study, and had reviewed and/or edited this written report and agrees with it. Electronically signed by: Tulio Johnson M.D. Narrative 06/13/2025 5:53 PM CDT EXAMINATION: CT head without contrast HISTORY: Admitted for generalized weakness with mental status change TECHNIQUE: CT of the head was performed with images acquired from skull base to vertex without intravenous contrast. COMPARISON: None Available. FINDINGS: There is heterogeneous attenuation of the white matter which can be seen in chronic small vessel disease as well as mild parenchymal volume loss. There are atherosclerotic changes of the intracranial vessels. There is no acute intracranial hemorrhage. Mild global brain volume loss with ex vacuo dilatation of ventricles. No mass effect or midline shift is present. The rosen-white matter differentiation is normal. Bilateral lens replacements. Small bilateral mastoid effusions. Mild mucosal thickening in the right ethmoid sinus. No fractures are identified. Procedure Note Tulio Johnson MD PhD - 06/13/2025 EXAMINATION: CT head without contrast HISTORY: Admitted for generalized weakness with mental status change TECHNIQUE: CT of the head was performed with images acquired from skull base to vertex without intravenous contrast. COMPARISON: None Available. FINDINGS: There is heterogeneous attenuation of the white matter which can be seen in chronic small vessel disease as well as mild parenchymal volume loss. There are atherosclerotic changes of the intracranial vessels. There is no acute intracranial hemorrhage. Mild global brain volume loss with ex vacuo dilatation of ventricles. No mass effect or midline shift is present. The rosen-white matter differentiation is normal. Bilateral lens replacements. Small bilateral mastoid effusions. Mild mucosal thickening in the right ethmoid sinus. No fractures are identified. IMPRESSION: No acute intracranial process. Dictated by: Trenton Harrell MD The radiology attending physician has personally reviewed this study, and had reviewed and/or edited this written report and agrees with it. Electronically signed by: Tulio Johnson M.D. us Richard Mckeon MD IMG CT PROCEDURES Final Result * (ABNORMAL) eGFR (06/13/2025 5:41 AM CDT) eGFR 51(L) >=60 mL/min/1. 73 m2 Comment: Interpretive Data [...] interpretive data was last reviewed 2021. Blood 06/13/2025 5:41 AM CDT 06/13/2025 6:58 AM CDT us Nuvia Byrd DO LAB BLOOD ORDERABLES Final R esult [facility] [address] [place] [address] * (ABNORMAL) Calcium, ionized (06/13/2025 5:41 AM CDT) Calcium, Ionized 5.87(H) 4.50 - 5.10 mg/dL Blood 06/13/2025 5:41 AM CDT 06/13/2025 5:44 AM CDT Nuvia Byrd LAB BLOOD ORDERABLES Final R esult Performing Organization Address [facility]/ZIP Co de Phone Number [facility] [address] [place] [employer] [place] [address] * (ABNORMAL) CBC without differential (06/13/2025 5:41 AM CDT) [facility] WBC 9.59 3.80 - 9.90 K/cumm Hgb 11.5(L) 11.9 - 15.5 g/dL [facility] Hct 36.3 35.6 - 45.5 % [facility] Plt 314 150 - 400 K/cumm [facility] MPV 12.2 9.1 - 12.3 fL [facility] RBC 4.11 3.90 - 5.20 M/cumm [facility] MCV 88.3 81.3 - 96.4 fL [facility] MCH 28.0 27.1 - 33.3 pg [facility] MCHC 31.7(L) 32.3 - 35.7 g/dL [facility] RDW CV 16.1(H) 11.1 - 14.9 % [facility] RDW SD 50.6(H) 35.7 - 48.1 fL [facility] NRBC abs 0.00 0.00 - 0.01 K/cumm [facility] Blood 06/13/2025 5:41 AM CDT 06/13/2025 6:58 AM CDT us Gordo Corrales MD LAB BLOOD ORDERABLES Fi nal Result Performing Organization Address City/[facility]/ZIP Co de Phone Number [facility] [address] Department [employer] [place] [address] * (ABNORMAL) Renal function panel (06/13/2025 5:41 AM CDT) Sodium 146(H) 135 - 145 mmol/L Potassium, pl 3.9 3.3 - 4.9 mmol/L [facility] Chloride 105 97 - 110 mmol/L [facility] CO2 26 22 - 32 mmol/L [facility] Anion gap 15 2 - 15 mmol/L [facility] BUN 30(H) 6 - 25 mg/dL [facility] Creatinine 1.14(H) 0.60 - 1.10 mg/dL [facility] Glucose 146 70 - 199 mg/dL [facility] Comment: Interpretive Data Fasting glucose >/= [...] interpretive data was last revised 2022. Calcium 12.4(H) 8.5 - 10.3 mg/dL [facility] Phosphorus, pl 3.3 2.3 - 4.5 mg/dL [facility] Albumin 3.1(L) 3.5 - 5.0 g/dL [facility] Blood 06/13/2025 5:41 AM CDT 06/13/2025 6:58 AM CDT us Nuvia Byrd DO LAB BLOOD ORDERABLES Final R esult [facility] [address] Department [place] [address] * (ABNORMAL) eGFR (06/12/2025 6:05 PM CDT) eGFR 55(L) >=60 mL/min/1. 73 m2 Comment: Interpretive Data [...] interpretive data was last reviewed 2021. Blood 06/12/2025 6:05 PM CDT 06/12/2025 6:05 PM CDT us Nuvia Byrd DO LAB BLOOD ORDERABLES Final R esult [facility] [address] Department [place] [address] * (ABNORMAL) Renal function panel (06/12/2025 6:05 PM CDT) Sodium 142 135 - 145 mmol/L Potassium, pl 3.5 3.3 - 4.9 mmol/L [facility] Chloride 104 97 - 110 mmol/L [facility] CO2 30 22 - 32 mmol/L [facility] Anion gap 8 2 - 15 mmol/L [facility] BUN 21 6 - 25 mg/dL [facility] Creatinine 1.06 0.60 - 1.10 mg/dL [facility] Glucose 170 70 - 199 mg/dL [facility] Comment: Interpretive Data Fasting glucose >/= [...] interpretive data was last revised 2022. Calcium 11.8(H) 8.5 - 10.3 mg/dL [facility] Phosphorus, pl 3.3 2.3 - 4.5 mg/dL [facility] Albumin 3.1(L) 3.5 - 5.0 g/dL [facility] Blood 06/12/2025 6:05 PM CDT 06/12/2025 6:05 PM CDT [facility] BLOOD ORDERABLES Final R esult Performing Organization Address City/[facility]/ZIP Co de Phone Number [facility] [address] Department [employer] [place], [place] [id number] * (ABNORMAL) Calcium, ionized (06/12/2025 6:04 PM CDT) Pathologist [facility] Calcium, Ionized 5.83(H) 4.50 - 5.10 mg/dL Blood 06/12/2025 6:04 PM CDT 06/12/2025 6:04 PM CDT [facility] BLOOD ORDERABLES Final R esult [facility] [address] Department [employer] [place] [address] * Cell Differential, Body Fluid (06/12/2025 2:17 PM CDT) Total cells diffed 100 % Comment: Interpretive Data Unless otherwise specified, the reference range and other method performance specifications have not been established for CSF/Body Fluid tests. The test results should be integrated into the clinical context for interpretation. Current interpretive data was last revised on 2019. Neutrophils, fld 5 % [facility] Lymphs, fld 7 % [facility] Monocyte, fld 85 % [facility] Eosinophils, fld 5 % [facility] Specimen type, fld BAL [facility] Fluid 06/12/2025 2:17 PM CDT 06/12/2025 6:55 PM CDT us Nuvia Byrd DO LAB BODY FLUIDS AND STOOLS O RDERABLES Final Result [facility] [address] Department [place] [address] * Aerobic culture and gram stain Bronchoalveolar lavage Lobe, right upper (06/12/2025 2:17 PM CDT) Direct Specimen Exam Stain: No polymorphonuclear leukocytes seen. No squamous epithelial cells seen. No organisms seen. Report Final Report: No growth [facility] Bronchoalveolar lavage (Lobe, right upper) 06/12/2025 2:17 PM CDT 06/12/2025 3:26 PM CDT us Gordo Corrales MD LAB MICROBIOLOGY - GENE RAL ORDERABLES Final Result [facility] [address] Department [place] [address] * XR Chest 1 View (06/12/2025 2:01 PM CDT) Anatomical Region Laterality Modality Body, Chest N/A Computed Radiogr aphy 06/12/2025 3:45 PM CDT Impressions 06/12/2025 3:45 PM CDT Comparison is made to chest radiograph of 06/07/2025 at 11:37 AM. Portable radiograph, anteroposterior view demonstrates patchy opacities in bilateral upper lobes which correlate with clusters of nodular is an nodular consolidations seen on CT of 06/10/2025. Given the findings on CT of 06/10/2025 this could represent pulmonary sarcoidosis. No pneumothorax or pneumomediastinum. The cardiac silhouette is mildly enlarged but unchanged. Median sternotomy wires and mitral valve replacement again noted. The tip of the endotracheal tube projects 4.4 cm above the salbador. Electronically signed by: Marco Antonio Lopez M.D. Narrative 06/12/2025 3:45 PM CDT EXAMINATION: 1 view chest radiograph Procedure Note Marco Antonio Lopez MD - 06/12/2025 EXAMINATION: 1 view chest radiograph IMPRESSION: Comparison is made to chest radiograph of 06/07/2025 at 11:37 AM. Portable radiograph, anteroposterior view demonstrates patchy opacities in bilateral upper lobes which correlate with clusters of nodular is an nodular consolidations seen on CT of 06/10/2025. Given the findings on CT of 06/10/2025 this could represent pulmonary sarcoidosis. No pneumothorax or pneumomediastinum. The cardiac silhouette is mildly enlarged but unchanged. Median sternotomy wires and mitral valve replacement again noted. The tip of the endotracheal tube projects 4.4 cm above the salbador. Electronically signed by: Marco Antonio Lopez M.D. Gordo Corrales MD IMG XR PROCEDURES Final Result * Cytology (06/12/2025 1:42 PM CDT) Fluid, NOS 06/12/2025 1:42 PM CDT 06/13/2025 8:30 AM CDT Narrative 06/15/2025 3:19 PM CDT [address] [address] Tele: Xochilt Rosado MD - Communications Specialist Note to Patients: This report may contain a detailed description of human tissue sent by a health care provider to the laboratory for pathologic evaluation. The content of this report is essential for diagnosis and may provide important critical findings. This information may be unfamiliar to patients to review without a medical professional present. It is advised that the patient review this report in the presence of a health care provider who can answer questions and explain the details. CYTOLOGY REPORT Patient Name: ENLI VALENZUELA Address: [address] [place] [address] Gender: F : 1950 (Age: 75) Service: Medical Location: [id number] Hospital #: [id number] Patient Type [facility] Taken: 06/12/2025 Reported: 06/15/2025 Physician(s): Gordo Corrales M.D. Parminder Amairani Cochran M.D. FINAL DIAGNOSIS: Lung, RUL BAL, cytospins and cell block: - Negative for malignancy aur/06/15/2025 15:19 Report Reviewed and Electronically Signed By Adriana Glass M.D. SPECIMEN TYPE: A: RUL BAL CLINICAL DIAGNOSIS AND HISTORY: The patient is a 75-year-old woman with a history of COPD, coronary artery disease, chronic anemia who presented with neck pain and generalized weakness. CT chest: Numerous upper lobe nodules, concerning for sarcoidosis. GROSS DESCRIPTION: Received in CytoRich Red in a container labeled Neli Valenzuela./RUL BAL are 80 ml of cloudy, pink fluid without sediment. Submitted for two Pap-stained cytospins and cell block. MICROSCOPIC DESCRIPTION: Abundant alveolar macrophages are present. Significant inflammatory cells are not seen. Features of malignancy is not seen. Immunohistochemical stains are performed on the cell block with appropriately reactive controls and demonstrate the following: Immunostains for Terrell-EP4 and MOC-31 are negative while immunostain for CD68 highlights abundant macrophages. Clerical Data Follows A; 70035, 22699`, 82998, 10852(2) REPORT IMAGES AND/OR SCANNED DOCUMENTS ONLY VIEWABLE IN PDF FORMAT The immunohistochemical test(s) cited in this report, if any, was developed and its performance characteristics determined by [facility] Pathology Department. It has not been cleared or approved by the U.S. Food and Drug Administration. The FDA has determined that such clearance or approval is not necessary. This test is used for clinical purposes. It should not be regarded as investigational or for research. [facility] is certified under the Clinical Laboratory Improvement Amendments of 1988 (CLIA) as qualified to perform high complexity testing. Immunostains were performed on formalin-fixed paraffin embedded tissue using a polymer diaminobenzidine chromogen detection system. Antibodies used may include clone 1D5 (mouse monoclonal, estrogen receptor), clone [id number] (mouse monoclonal progesterone receptor), MIB-1 (mouse monoclonal, Ki- 67), and CD117 (rabbit polyclonal, c-kit). In the event that immunohistochemistry or special stains have been performed, attending physician has confirmed appropriateness of controls. Frozen section, operating room consultation, gross examination and dissection, and case sign out may have been performed in part or completely in the following laboratories: [facility], [address] [place] [address], [address] [place] [address]. us Gordo Corrales MD LAB CYTOLOGY ORDERABLES Final Result * Surgical pathology (06/12/2025 1:42 PM CDT) Lung Biopsy 06/12/2025 1:42 PM CDT 06/13/2025 8:29 AM CDT Narrative 06/15/2025 10:27 AM CDT [place] [address] Tele: Xochilt Rosado MD - Communications Specialist Note to Patients: This report may contain a detailed description of human tissue sent by a health care provider to the laboratory for pathologic evaluation. The content of this report is essential for diagnosis and may provide important critical findings. This information may be unfamiliar to patients to review without a medical professional present. It is advised that the patient review this report in the presence of a health care provider who can answer questions and explain the details. SURGICAL PATHOLOGY REPORT Patient Name: NELI VALENZUELA Address: [address] [place] [address] Gender: F : 1950 (Age: 75) Service: Medical Location: [place] [address], Hospital #: [id number] Patient Type: [facility] Taken: 06/12/2025 Received 06/13/2025 Reported: 06/15/2025 Physician(s): Gordo Corrales M.D. Parminder Amariani Cochran M.D. DIAGNOSIS: Lung, right upper lobe, biopsy: - Few noncaseating granulomas and multinucleated giant cells rer/06/15/2025 10:27 Examining Pathologist: Josephine Barr M.D. Report Reviewed and Electronically Signed By Josephine Barr M.D. SPECIMEN TYPE: A: RUL CLINICAL IMPRESSION AND HISTORY: Abnormal chest CT GROSS DESCRIPTION: Received in formalin in a single container with the patient's name, NELI VALENZUELA labeled RUL and contains multiple pink-mehta irregular tissue fragments measuring 1 x 0.6 x 0.1 cm in aggregate. Due to the color and size of the specimen, eosin is used. The specimen is filtered and submitted entirely in cassette A1. [facility]/06/13/2025 14:31 , MICROSCOPIC DESCRIPTION: Microscopic evaluation shows scant fragments of lung and bronchial tissue with few noncaseating granulomas and scattered clusters of multinucleated giant cells. Special stains for AFB and GMS are performed and are negative for acid-fast bacilli and fungal organisms, respectively. The staining controls are appropriately reactive. Clerical Data Follows A; 92705, 18702, 44215 REPORT IMAGES AND/OR SCANNED DOCUMENTS ONLY VIEWABLE IN PDF FORMAT The immunohistochemical test(s) cited in this report, if any, was developed and its performance characteristics determined by [facility] Pathology Department. It has not been cleared or approved by the U.S. Food and Drug Administration. The FDA has determined that such clearance or approval is not necessary. This test is used for clinical purposes. It should not be regarded as investigational or for research. [facility] is certified under the Clinical Laboratory Improvement Amendments of 1988 (CLIA) as qualified to perform high complexity testing. Immunostains were performed on formalin-fixed paraffin embedded tissue using a polymer diaminobenzidine chromogen detection system. Antibodies used may include clone SP1 (rabbit monoclonal, estrogen receptor), clone 1E2 (rabbit monoclonal progesterone receptor), Ki-67 (rabbit monoclonal, 30-9), CD117 (rabbit polyclonal, c-kit), and anti-Her-2/fiorella (4B5) (rabbit monoclonal primary antibody). In the event that immunohistochemistry or special stains have been performed, attending physician has confirmed appropriateness of controls. Frozen section, operating room consultation, gross examination and dissection, and case sign out may have been performed in part or completely in the following laboratories: [facility], [address] [place] [address] [facility], [address] [place] [id number]. Gordo Corrales MD LAB PATHOLOGY ORDERABLE S Final Result * NH AN ELECTIVE ENDOTRACHEAL AIRWAY, NH AN PROCEDURE PLACEHOLDER (06/12/2025 1:20 PM CDT) Narrative Kathy Calle CRNA - 06/12/2025 1:20 PM CDT Kathy Calle CRNA 06/12/2025 1:21 PM Airway Patient location: OR Urgency: elective Indications for airway management: anesthesia Difficult airway: no Staff: Placed by: PAYROLL AND BENEFITS ANALYST: Kathy Calle CRNA Emergent airway documentation: Risks and benefits discussed: yes Consent obtained: yes Consent given by: patient Airway prep: Preoxygenated: yes Patient position: sniffing Mask difficulty assessment: 0 - not attempted Sedation level during airway: GA Final airway details: Final airway type: endotracheal airway Tube type: ETT ETT size: 8.5 mm Cuffed: yes Technique used for successful ETT placement: video laryngoscopy Devices/Methods used in placement: stylet Insertion site: oral Video blade type: Monaco Blade size: 3 Cormack-Lehane (video): grade I - full view of glottis Cuff volume: 6 mL Cuff inflated with: air ETT to lips: 21 cm Placement verified by: auscultation and CO2 detection Airway secured with: silk tape Number of attempts: 1 Julien Salomon DO ANESTHESIA ORDERABLES Fi nal Result * POCT glucose (06/12/2025 12:57 PM CDT) Glucose, POC 175 70 - 199 mg/dL Comment: For Glucose values <35 mg/dl when Hematocrit is >60 mg/dl,the test may not accurately detect significant hypoglycemia,and testing in the Laboratory should be considered if clinically indicated. Blood 06/12/2025 12:5 7 PM CDT 06/12/2025 12:57 PM CDT Nuvia Byrd DO LAB POCT ORDERABLES - DEVICE Final Result [facility] [address] Department [place] [address] * Bronchoscopy (06/12/2025 12:56 PM CDT) Anatomical Region Laterality Modality Other Narrative Procedure Note Godro Corrales MD - 06/12/2025 12:56 PM CDT Interventional Pulmonology Patient Name: Neli Valenzuela Procedure Date: 06/12/2025 12:56PM Admit Type: Inpatient Room: [facility] WP IP 1 Date of : 1950 Instrument Name: [id number] Gender: Female Note Status: Finalized Procedure: Bronchoscopy Indications: Interstitial lung disease Providers: Gordo Corrales M.D. Referring MD: Nuvia Byrd D.O. Medicines: General Anesthesia Complications: No immediate complications Procedure: Pre-Anesthesia Assessment: - The risks and benefits of the procedure and the sedation options and risks were discussed with the patient. All questions were answered and informed consent was obtained. - The anesthesia plan was to use generalanesthesia. After obtaining informed consent, the Bronchoscopewas introduced through the mouth, via the endotracheal tube (the patient was intubated for the procedure)and advanced to the tracheobronchial tree of bothlungs. The procedure was accomplished without difficulty.The patient tolerated the procedure well. Findings: A peripheral radial ultrasound probe was utilized in order to better characterize the area of infiltration in the apical segment of theright upper lobe. The bronchoscope was advanced until wedged at the desired locationfor bronchoalveolar lavage. BAL was performed in the right upper lobe ofthe lung and sent for cell count, bacterial culture, viral smears &culture, and fungal & AFB analysis and cytology. 100 mL of fluid wereinstilled. 40 mL were returned. The return was cloudy. Transbronchial biopsies of an area of infiltration were performed inthe apical segment of the right upper lobe using forceps and sent for histopathology examination. The procedure was guided byfluoroscopy. Cryotherapy was performed in the right upper lobe of the lung for cryobiopsies. Post-treatment findings: Impression: - Interstitial lung disease - Endobronchial ultrasound was performed. - Bronchoalveolar lavage was performed. - Transbronchial lung biopsies were performed. - Cryotherapy was performed. Recommendation: - Await BAL, biopsy and cytology results. Electronically signed by Gordo Corrales MD Gordo Corrales M.D. 06/12/2025 1:44:43 PM Number of Addenda: 0 Note Initiated On: 06/12/2025 12:56 PM us Gordo Corrales MD ENDOSCOPY PROCEDURES Fi nal Result * NM MPI SPECT (Rest and/or Stress) Multiple Studies Pharmologic (06/12/2025 12:29 PM CDT) Anatomical Region Laterality Modality Body N/A Nuclear Medicine 06/12/2025 12:3 6 PM CDT Impressions 06/12/2025 12:36 PM CDT Normal rest and pharmacologic stress myocardial perfusion study. Electronically signed by: Atul El M.D. Narrative 06/12/2025 12:36 PM CDT EXAM: NM MPI SPECT (REST AND/OR STRESS) MULTIPLE STUDIES CLINICAL HISTORY: Preoperative evaluation. Monitoring for coronary artery disease. COMPARISON: No prior studies available. RADIOPHARMACEUTICAL: 10.9 mCi Tc-99m Myoview IV at rest and and 32.8 mCi Tc-99m Myoview IV at pharmacologic stress. Dose was administered through the IV in the left hand. FINDINGS: Rest SPECT myocardial perfusion images were obtained after 30 minutes resting injection of Tc-99m Myoview. Subsequently, an intravenous infusion of 0.4 mg of Lexiscan was given under the supervision of a assignment desk assistant listed in the electronic medical record. Tc-99m Myoview was injected intravenously and 45 minutes post injection Gated stress SPECT myocardial perfusion images were obtained. Gated wall motion and ejection fraction were also determined. There is normal distribution of activity in the left ventricular myocardium on both rest and pharmacologic stress images. Gated Tc-99m Myoview images demonstrate normal left ventricular wall thickening. The left ventricular ejection fraction is within normal limits at greater than 70% (normal > 45%). Procedure Note Atul El MD - 06/12/2025 EXAM: NM MPI SPECT (REST AND/OR STRESS) MULTIPLE STUDIES CLINICAL HISTORY: Preoperative evaluation. Monitoring for coronary artery disease. COMPARISON: No prior studies available. RADIOPHARMACEUTICAL: 10.9 mCi Tc-99m Myoview IV at rest and and 32.8 mCi Tc-99m Myoview IV at pharmacologic stress. Dose was administered through the IV in the left hand. FINDINGS: Rest SPECT myocardial perfusion images were obtained after 30 minutes resting injection of Tc-99m Myoview. Subsequently, an intravenous infusion of 0.4 mg of Lexiscan was given under the supervision of a assignment desk assistant listed in the electronic medical record. Tc-99m Myoview was injected intravenously and 45 minutes post injection Gated stress SPECT myocardial perfusion images were obtained. Gated wall motion and ejection fraction were also determined. There is normal distribution of activity in the left ventricular myocardium on both rest and pharmacologic stress images. Gated Tc-99m Myoview images demonstrate normal left ventricular wall thickening. The left ventricular ejection fraction is within normal limits at greater than 70% (normal > 45%). IMPRESSION: Normal rest and pharmacologic stress myocardial perfusion study. Electronically signed by: Atul El M.D. Sadia Patterson PA IMG NM PROCEDURES Fi nal Result * Stress Test for Myocardial Perfusion (06/12/2025 12:29 PM CDT) Anatomical Region Laterality Modality Nuclear Medicine 06/12/2025 9:30 AM CDT Narrative 06/12/2025 12:59 PM CDT [facility] [address] [place] [address] MPI Imaging Report Patient Name: NELI VALENZUELA A : 1950 (75y 3m) Sex: F Study Date: 06/12/2025 09:30:00 AM Ht(Inch): Wt(Lb): BSA: Tech: Location: [address] Order Provider: SADIA PATTERSON Heart Rate: 125 BMI: Ref Provider: SADIA PATTERSON PROCEDURES: Pharmacologic SPECT Report.: Stress Test performed in conjunction with Myocardial perfusion imaging with SPECT at rest and post regadenoson (Lexiscan) infusion. Results of MPI are reported separately. INDICATIONS: Pre-Op Clearance. FINDINGS: Procedure Data: Resting HR 96 bpm Peak HR: 127 bpm Predicted Maximal HR 147 bpm Percent Max Predicted HR Achieved: 86 % Baseline BP: 144/88 Peak BP: 128/75 METS achieved: 1.0 Rate-Pressure Product: 13915 BPM*mmHg Max ST: Supervising Physician: The Supervising Physician is viola. Reason for Termination: Lexiscan protocol complete. Resting ECG: Normal sinus rhythm. The resting EKG shows right bundle branch block. PVCs. Post Pharm ECG: No diagnostic ST changes. CONCLUSIONS: 1. Negative pharmacologic stress ECG. 2. Nuclear medicine imaging portion to be reported separately. Heart rate increase is not required for adequate pharmacologic vasodilator stress. Electronically Signed By: Chris Scott MD, [facility] 06/12/2025 12:02:20 PM CDT Procedure Note Chris Scott MD - 06/12/2025 [facility] [address] [place] [address] MPI Imaging Report Patient Name: NELI VALENZUELA A : 1950 (75y 3m) Sex: F Study Date: 06/12/2025 09:30:00 AM Ht(Inch): Wt(Lb): BSA: Tech: Location: [address] Order Provider: SADIA PATTERSON Heart Rate: 125 BMI: Ref Provider: SADIA PATTERSON PROCEDURES: Pharmacologic SPECT Report.: Stress Test performed in conjunction withMyocardial perfusion imaging with SPECT at rest and post regadenoson (Lexiscan)infusion. Results of MPI are reported separately. INDICATIONS: Pre-Op Clearance. FINDINGS: Procedure Data: Resting HR 96 bpm Peak HR: 127 bpm Predicted Maximal HR 147 bpm Percent Max Predicted HR Achieved: 86 % Baseline BP: 144/88 Peak BP: 128/75 METS achieved: 1.0 Rate-Pressure Product: 36403 BPM*mmHg Max ST: Supervising Physician: The Supervising Physician is viola. Reason for Termination: Lexiscan protocol complete. Resting ECG: Normal sinus rhythm. The resting EKG shows right bundlebranch block. PVCs. Post Pharm ECG: No diagnostic ST changes. CONCLUSIONS: 1. Negative pharmacologic stress ECG. 2. Nuclear medicine imaging portion to be reported separately. Heart rateincrease is not required for adequate pharmacologic vasodilator stress. Electronically Signed By: Chris Scott MD, [facility] 06/12/2025 12:02:20 PM CDT us Sadia العراقي CV STRESS PROCEDURES Final Result * eGFR (06/12/2025 6:10 AM CDT) eGFR 60 >=60 mL/min/1. 73 m2 Comment: Interpretive Data [...] interpretive data was last reviewed 2021. Blood 06/12/2025 6:10 AM CDT 06/12/2025 6:30 AM CDT us Nuviashruthi Cuellojaida Byrd DO LAB BLOOD ORDERABLES Final R esult [facility] [address] Department [place] [address] * (ABNORMAL) Calcium, ionized (06/12/2025 6:10 AM CDT) Calcium, Ionized 6.72(C) 4.50 - 5.10 mg/dL Comment:Critical result call ed to and read back by Robin Lucero (RN) on 06/12/2025 06:27:30 CDT to [id number]. Blood 06/12/2025 6:10 AM CDT 06/12/2025 6:16 AM CDT us Nuvia Byrd DO LAB BLOOD ORDERABLES Final R esult Performing Organization Address [facility]/ZIP Co de Phone Number [facility] [address] [place] [address] * (ABNORMAL) 1,25 Dihydroxycholecalciferol (06/12/2025 6:10 AM CDT) Pathologist [facility] 1-25-di-OH Vit D 83(H) 18 - 78 pg/mL [facility] Comment: ADDITIONAL INFORMATION This test was developed and its performance characteristics determined by [facility] in a manner consistent with CLIA requirements. This test has not been cleared or approved by the U.S. Food and Drug Administration. Test Performed by: [place] [address] Bender Helper: Alex Schultz Ph.D.; CLIA# [id number] Blood 06/12/2025 6:10 AM CDT 06/12/2025 6:22 AM CDT Gordo Corrales MD LAB BLOOD ORDERABLES Fi nal Result Performing Organization Address [facility] Co de Phone Number [facility] [address] Department [employer] [place], [place] [id number] [place] [facility] * (ABNORMAL) CBC without differential (06/12/2025 6:10 AM CDT) WBC 10.05(H) 3.80 - 9.90 K/cumm Hgb 12.3 11.9 - 15.5 g/dL [facility] Hct 39.6 35.6 - 45.5 % [facility] Plt 306 150 - 400 K/cumm [facility] MPV 11.4 9.1 - 12.3 fL [facility] RBC 4.50 3.90 - 5.20 M/cumm [facility] MCV 88.0 81.3 - 96.4 fL [facility] MCH 27.3 27.1 - 33.3 pg [facility] MCHC 31.1(L) 32.3 - 35.7 g/dL [facility] RDW CV 15.9(H) 11.1 - 14.9 % [facility] RDW SD 50.8(H) 35.7 - 48.1 fL [facility] NRBC abs 0.00 0.00 - 0.01 K/cumm [facility] Blood 06/12/2025 6:10 AM CDT 06/12/2025 8:46 AM CDT us Gordo Corrales MD LAB BLOOD ORDERABLES Fi nal Result Performing Organization Address City/[facility]/ZIP Co de Phone Number [facility] [address] [place] [address] * (ABNORMAL) Angiotensin converting enzyme (06/12/2025 6:10 AM CDT) [facility] BRAYDEN 87(H) 10 - 55 Units/L Comment:Testing performed by : [facility], [address] [facility], [place]., [address] Blood 06/12/2025 6:10 AM CDT 06/12/2025 11:16 AM CDT us Nuvia Byrd DO LAB BLOOD ORDERABLES Final R esult [facility] [address] [place] [address] * (ABNORMAL) Comprehensive metabolic panel (06/12/2025 6:10 AM CDT) [facility] Sodium 141 135 - 145 mmol/L Potassium, pl 3.8 3.3 - 4.9 mmol/L [facility] Chloride 99 97 - 110 mmol/L [facility] CO2 28 22 - 32 mmol/L [facility] Anion gap 14 2 - 15 mmol/L [facility] BUN 19 6 - 25 mg/dL [facility] Creatinine 0.99 0.60 - 1.10 mg/dL [facility] Glucose 194 70 - 199 mg/dL [facility] Comment: Interpretive Data Fasting glucose >/= [...] interpretive data was last revised 2022. Calcium 13.8(H) 8.5 - 10.3 mg/dL [facility] Bilirubin, total 0.5 0.1 - 1.2 mg/dL [facility] Protein, pl 6.7 6.5 - 8.5 g/dL [facility] Albumin 3.6 3.5 - 5.0 g/dL [facility] Alk phos 285(H) 40 - 130 Units/L [facility] ALT 33 7 - 45 Units/L [facility] AST 41 10 - 45 Units/L [facility] Blood 06/12/2025 6:10 AM CDT 06/12/2025 6:30 AM CDT us Gordo Corrales MD LAB BLOOD ORDERABLES Fi nal Result [facility] [address] Department [place] [address] * Volume and period, urine, 24 hour (06/11/2025 10:11 AM CDT) Volume, ur 2,500 mL Period, Urine Collection 1,440 min [facility] Urine 06/11/2025 10:1 1 AM CDT 06/11/2025 10:30 AM CDT us Nuvia Byrd DO LAB URINE ORDERABLES Final R esult Performing Organization Address [facility] Co de Phone Number [facility] [address] [facility] [address] * (ABNORMAL) Protein electrophoresis, urine, 24 hour (06/11/2025 10:11 AM CDT) Protein, ur, quant 32.6 mg/dL Comment:No reference range e stablished. Albumin, Ur 34.0 % [facility] Comment:No reference range e stablished. Alpha-1 globulin, Ur 34.8 % [facility] Comment:No reference range e stablished. Alpha-2 globulin, Ur 13.8 % [facility] Comment:No reference range e stablished. Beta globulin, Ur 12.1 % [facility] Comment:No reference range e stablished. Gamma globulin, Ur 5.3 % [facility] Comment:No reference range e stablished. UPEP interp See Comment [facility] Comment:UPEP INTERPRETATION: No Monoclonal Protein Detected Protein, 24 hr, ur 815(H) 1 - 150 mg/24H [facility] Urine 06/11/2025 10:1 1 AM CDT 06/11/2025 10:30 AM CDT Nuviashruthi Wetzel [facility] URINE ORDERABLES Final R esult Performing Organization Address [facility] de Phone Number [facility] [address] [place] [address] * Immunofixation, urine with interpretation (06/11/2025 10:11 AM CDT) Immunofixation, Ur See Comment Comment:Immunotyping Interpr etation: No Monoclonal Protein Detected Urine 06/11/2025 10:1 1 AM CDT 06/11/2025 10:30 AM CDT Nuvia Wetzel [facility] URINE ORDERABLES Final R esult Performing Organization Address [facility] Co de Phone Number [facility] [address] Department [place] [address] * Immunoglobulin free light chains (06/11/2025 7:39 AM CDT) [facility] Chualar/Lambda ratio BJ 1.20 0.26 - 1.65 Comment: Interpretive Data The Binding Site FreeLite assay procedure was used. Results from different manufacturers or methods may not be comparable. Serial testing should be performed using the same methods and instrumentation. Current Interpretive Data was last revised on 2023. Testing performed by: [facility], [address] [place] [address]., [address] Chualar free light chain BJ 1.49 0.33 - 1.94 mg/dL [facility] Comment: Interpretive Data The Binding Site FreeLite assay procedure was used. Results from different manufacturers or methods may not be comparable. Serial testing should be performed using the same methods and instrumentation. Current Interpretive Data was last revised on 2023. Testing performed by: [facility], [address] [place]., [address] Lambda free light chain BJ 1.24 0.57 - 2.63 mg/dL [facility] Comment: Interpretive Data The Binding Site FreeLite assay procedure was used. Results from different manufacturers or methods may not be comparable. Serial testing should be performed using the same methods and instrumentation. Current Interpretive Data was last revised on 2023. Testing performed by: [facility], [address] [place]., [address] Blood 06/11/2025 7:39 AM CDT 06/11/2025 11:58 AM CDT us Nuvia Byrd DO LAB BLOOD ORDERABLES Final R esult [facility] [address] Department [place] [address] * eGFR (06/11/2025 5:59 AM CDT) [facility] eGFR 68 >=60 mL/min/1. 73 m2 Comment: Interpretive Data [...] interpretive data was last reviewed 2021. Blood 06/11/2025 5:59 AM CDT 06/11/2025 6:14 AM CDT us Nuvia Byrd LAB BLOOD ORDERABLES Final R esult [facility] [address] Department [place] [address] * (ABNORMAL) CBC without differential (06/11/2025 5:59 AM CDT) [facility] WBC 9.40 3.80 - 9.90 K/cumm Hgb 11.7(L) 11.9 - 15.5 g/dL [facility] Hct 37.3 35.6 - 45.5 % [facility] Plt 259 150 - 400 K/cumm [facility] MPV 11.8 9.1 - 12.3 fL [facility] RBC 4.12 3.90 - 5.20 M/cumm [facility] MCV 90.5 81.3 - 96.4 fL [facility] MCH 28.4 27.1 - 33.3 pg [facility] MCHC 31.4(L) 32.3 - 35.7 g/dL [facility] RDW CV 16.1(H) 11.1 - 14.9 % [facility] RDW SD 52.5(H) 35.7 - 48.1 fL [facility] NRBC abs 0.00 0.00 - 0.01 K/cumm [facility] Blood 06/11/2025 5:59 AM CDT 06/11/2025 6:10 AM CDT Gordo Corrales MD LAB BLOOD ORDERABLES Fi nal Result Performing Organization Address City/[facility]/ZIP Co de Phone Number [facility] [address] [facility] [place] [address] * Phosphorus (06/11/2025 5:59 AM CDT) Pathologist [facility] Phosphorus, pl 3.6 2.3 - 4.5 mg/dL Blood 06/11/2025 5:59 AM CDT 06/11/2025 6:14 AM CDT Nuvia Byrd DO LAB BLOOD ORDERABLES Final R esult Performing Organization Address [facility] de Phone Number [facility] [address] [employer] [place], [place] [id number] * Magnesium (06/11/2025 5:59 AM CDT) [facility] Magnesium 1.5 1.4 - 2.5 mg/dL Blood 06/11/2025 5:59 AM CDT 06/11/2025 6:14 AM CDT Nuvia Damari [facility] LAB BLOOD ORDERABLES Final R esult Performing Organization Address City/[facility] Co de Phone Number [facility] [address] Department [employer] [place], [place] [id number] * (ABNORMAL) Comprehensive metabolic panel (06/11/2025 5:59 AM CDT) Sodium 141 135 - 145 mmol/L Potassium, pl 3.7 3.3 - 4.9 mmol/L [facility] Comment:Hemolyzed; potassium value may be falsely elevated by as much as 0.3 - 0.5 mmol/L. Suggest redraw and reanalysis Chloride 101 97 - 110 mmol/L [facility] CO2 29 22 - 32 mmol/L [facility] Anion gap 11 2 - 15 mmol/L [facility] BUN 14 6 - 25 mg/dL [facility] Creatinine 0.89 0.60 - 1.10 mg/dL [facility] Glucose 125 70 - 199 mg/dL [facility] Comment: Interpretive Data Fasting glucose >/= [...] interpretive data was last revised 2022. Calcium 12.4(H) 8.5 - 10.3 mg/dL [facility] Bilirubin, total 0.7 0.1 - 1.2 mg/dL [facility] Protein, pl 6.1(L) 6.5 - 8.5 g/dL [facility] Albumin 3.2(L) 3.5 - 5.0 g/dL [facility] Alk phos 252(H) 40 - 130 Units/L [facility] ALT 20 7 - 45 Units/L [facility] AST 34 10 - 45 Units/L [facility] Comment:Slightly Hemolyzed S pecimen Blood 06/11/2025 5:59 AM CDT 06/11/2025 6:14 AM CDT us Gordo Corrales MD LAB BLOOD ORDERABLES Fi nal Result [facility] [address] Department [place] [address] * eGFR (06/10/2025 10:27 PM CDT) eGFR 73 >=60 mL/min/1. 73 m2 Comment: Interpretive Data [...] interpretive data was last reviewed 2021. Blood 06/10/2025 10:2 7 PM CDT 06/10/2025 10:53 PM CDT us Pricila Falk MD LAB BLOOD ORDERABLES Final Result [facility] [address] [place] [address] * (ABNORMAL) Calcium, ionized (06/10/2025 10:27 PM CDT) Calcium, Ionized 6.11(H) 4.50 - 5.10 mg/dL Blood 06/10/2025 10:2 7 PM CDT 06/10/2025 10:46 PM CDT us Nuvia Byrd DO LAB BLOOD ORDERABLES Final R esult [facility] [address] [place] [address] * Magnesium (06/10/2025 10:27 PM CDT) Pathologist [facility] Magnesium 1.6 1.4 - 2.5 mg/dL Blood 06/10/2025 10:2 7 PM CDT 06/10/2025 10:53 PM CDT Pricila Falk MD LAB BLOOD ORDERABLES Final Result [facility] [address] Department [place] [address] * (ABNORMAL) Basic metabolic panel (06/10/2025 10:27 PM CDT) Pathologist [facility] Sodium 142 135 - 145 mmol/L Potassium, pl 3.7 3.3 - 4.9 mmol/L [facility] Comment:Hemolyzed; potassium value may be falsely elevated by as much as 0.6 - 1.0 mmol/L. Suggest redraw and reanalysis Chloride 102 97 - 110 mmol/L [facility] CO2 30 22 - 32 mmol/L [facility] Anion gap 10 2 - 15 mmol/L [facility] BUN 14 6 - 25 mg/dL [facility] Creatinine 0.84 0.60 - 1.10 mg/dL [facility] Glucose 129 70 - 199 mg/dL [facility] Comment: Interpretive Data Fasting glucose >/= [...] interpretive data was last revised 2022. Calcium 12.5(H) 8.5 - 10.3 mg/dL [facility] Blood 06/10/2025 10:2 7 PM CDT 06/10/2025 10:53 PM CDT us Pricila Falk MD LAB BLOOD ORDERABLES Final Result [facility] [address] Department [place] [address] * ECG 12 lead (06/10/2025 9:42 PM CDT) 06/10/2025 9:42 PM CDT Narrative [facility] - 06/11/2025 7:35 PM CDT Vent Rate: 109 bpm RR Interval: 550 msec NH Interval: 0 msec QRS Duration: 128 msec QT Interval: 349 msec QTC Interval: 413 msec P-R-T [place]: 0 - -56 - 24 degrees IMPRESSION: SINUS TACHYCARDIA WITH FREQIENT PACS RIGHT BUNDLE BRANCH BLOCK LEFT ANTERIOR FASCICULAR BLOCK ABNORMAL ECG Electronically Signed By: Fernandez Vyas [facility] Card Festus العراقي ECG ORDERABLES Final R esult Performing Organization Address [facility] Co de Phone Number [facility] [email or web address] [facility] * CT Chest Abdomen Pelvis W Contrast (06/10/2025 6:08 PM CDT) Anatomical Region Laterality Modality Body N/A Computed Tomogra phy 06/11/2025 9:01 AM CDT Impressions 06/11/2025 9:01 AM CDT 1. Numerous upper lobe predominant perilymphatic nodules. The leading differential consideration would be sarcoidosis, which can be a cause of hypercalcemia. Malignancy is felt very unlikely. Pulmonology evaluation is suggested. 2. Ill-defined hypoattenuating lesions within the dome of the liver, indeterminate, but may also be related to sarcoidosis. Options for management would include short-term CT follow-up or further evaluation with MRI. 3. Wall thickening and mucosal hyperemia of the rectum which can be seen with proctitis. However, consider endoscopy to exclude a mucosal mass lesion as clinically indicated. Electronically signed by: Joe George M.D. Narrative 06/11/2025 9:01 AM CDT EXAMINATION: Computed tomography of the chest, abdomen and pelvis with intravenous contrast HISTORY: Hypercalcemia, evaluate for malignancy. TECHNIQUE: Transaxial computed tomographic images of the chest, abdomen and pelvis were obtained with intravenous contrast according to the standard protocol after the administration of 95 mL Opti-Ray 350 intravenous contrast. COMPARISON: None. FINDINGS: Chest: The patient is status post median sternotomy for coronary artery bypass grafting and mitral valve replacement. The heart size is normal. There is no pericardial effusion. The esophagus is decompressed. No pathologically enlarged thoracic lymph nodes are seen. There are upper lobe predominant perilymphatic nodules, some of which are more confluent for instance in the lung apices. There is a background of mosaic attenuation compatible with air trapping from small airways disease. Scattered mucous plugging in the right middle lobe is noted. No pleural effusion or pneumothorax. Abdomen/Pelvis: There is ill-defined hypoattenuating lesions within the dome of the liver. No focal splenic lesion. The pancreas and adrenal glands are normal. The kidneys enhance symmetrically without focal renal lesion or hydronephrosis. Urinary bladder is without focal wall thickening. There may be a small uterine fibroid. The stomach small bowel and colon are normal in caliber. No small bowel or colonic wall thickening but there is mild wall thickening and mucosal hyperemia of the rectum. Normal appendix. Mild presacral edema but no free intraperitoneal fluid or air. There is moderate to severe atherosclerosis of the abdominal aorta but no aneurysm. No abdominal pelvic lymphadenopathy. The external urethral catheter is noted. Bilateral hip synovial thickening compatible with synovitis is seen. Severe multilevel degenerative changes in the thoracolumbar spine but no suspicious lytic or blastic osseous lesion. Partially imaged right shoulder arthroplasty is noted. Procedure Note Joe George MD - 06/11/2025 EXAMINATION: Computed tomography of the chest, abdomen and pelvis with intravenous contrast HISTORY: Hypercalcemia, evaluate for malignancy. TECHNIQUE: Transaxial computed tomographic images of the chest, abdomen and pelvis were obtained with intravenous contrast according to the standard protocol after the administration of 95 mL Opti-Ray 350 intravenous contrast. COMPARISON: None. FINDINGS: Chest: The patient is status post median sternotomy for coronary artery bypass grafting and mitral valve replacement. The heart size is normal. There is no pericardial effusion. The esophagus is decompressed. No pathologically enlarged thoracic lymph nodes are seen. There are upper lobe predominant perilymphatic nodules, some of which are more confluent for instance in the lung apices. There is a background of mosaic attenuation compatible with air trapping from small airways disease. Scattered mucous plugging in the right middle lobe is noted. No pleural effusion or pneumothorax. Abdomen/Pelvis: There is ill-defined hypoattenuating lesions within the dome of the liver. No focal splenic lesion. The pancreas and adrenal glands are normal. The kidneys enhance symmetrically without focal renal lesion or hydronephrosis. Urinary bladder is without focal wall thickening. There may be a small uterine fibroid. The stomach small bowel and colon are normal in caliber. No small bowel or colonic wall thickening but there is mild wall thickening and mucosal hyperemia of the rectum. Normal appendix. Mild presacral edema but no free intraperitoneal fluid or air. There is moderate to severe atherosclerosis of the abdominal aorta but no aneurysm. No abdominal pelvic lymphadenopathy. The external urethral catheter is noted. Bilateral hip synovial thickening compatible with synovitis is seen. Severe multilevel degenerative changes in the thoracolumbar spine but no suspicious lytic or blastic osseous lesion. Partially imaged right shoulder arthroplasty is noted. IMPRESSION: 1. Numerous upper lobe predominant perilymphatic nodules. The leading differential consideration would be sarcoidosis, which can be a cause of hypercalcemia. Malignancy is felt very unlikely. Pulmonology evaluation is suggested. 2. Ill-defined hypoattenuating lesions within the dome of the liver, indeterminate, but may also be related to sarcoidosis. Options for management would include short-term CT follow-up or further evaluation with MRI. 3. Wall thickening and mucosal hyperemia of the rectum which can be seen with proctitis. However, consider endoscopy to exclude a mucosal mass lesion as clinically indicated. Electronically signed by: Joe George M.D. us Nuvia Byrd DO IMG CT PROCEDURES Final Resu lt * Immunotyping, serum with interpretation (06/10/2025 4:50 AM CDT) Immunosubtraction See Comment Comment:Immunotyping Interpr etation: No Monoclonal Protein detected Blood 06/10/2025 4:50 AM CDT 06/10/2025 4:58 AM CDT Narrative [facility] - 06/12/2025 1:24 PM CDT Reflex Immunotyping, Ser Nuvia Wetzel [facility] LAB BLOOD ORDERABLES Final R esult Performing Organization Address [facility]/ZIP Co de Phone Number [facility] [address] Department of [employer] [place], [place] [id number] * eGFR (06/10/2025 4:50 AM CDT) eGFR 69 >=60 mL/min/1. 73 m2 Comment: Interpretive Data [...] interpretive data was last reviewed 2021. Blood 06/10/2025 4:50 AM CDT 06/10/2025 4:59 AM CDT Nuvia Byrd LAB BLOOD ORDERABLES Final R esult Performing Organization Address City/[facility]/ZIP Co de Phone Number [facility] [address] [place] [address] * (ABNORMAL) Protein electrophoresis with reflex, serum with interpretation (06/10/2025 4:50 AM CDT) Pathologist [facility] Protein, sr 5.7(L) 6.2 - 8.2 g/dL Albumin 3.0(L) 3.2 - 5.0 g/dL [facility] Alpha-1 globulin 0.4 0.2 - 0.4 g/dL [facility] Alpha-2 globulin 1.0 0.5 - 1.0 g/dL [facility] Beta-1 globulin 0.4 0.3 - 0.6 g/dL [facility] Beta-2 globulin 0.4 0.2 - 0.6 g/dL [facility] Gamma globulin 0.5 0.5 - 1.7 g/dL [facility] SPEP interp See Comment [facility] Comment:SPEP INTERPRETATION: No apparent monoclonal peak. Decreased Gamma Globulins. Immunotyping See Immunotyping Results [facility] Blood 06/10/2025 4:50 AM CDT 06/10/2025 4:58 AM CDT us Nuvia Byrd DO LAB BLOOD ORDERABLES Final R esult [facility] [address] Department [place] [address] * (ABNORMAL) Renal function panel (06/10/2025 4:50 AM CDT) Sodium 143 135 - 145 mmol/L Potassium, pl 3.4 3.3 - 4.9 mmol/L [facility] Chloride 103 97 - 110 mmol/L [facility] CO2 29 22 - 32 mmol/L [facility] Anion gap 11 2 - 15 mmol/L [facility] BUN 14 6 - 25 mg/dL [facility] Creatinine 0.88 0.60 - 1.10 mg/dL [facility] Glucose 149 70 - 199 mg/dL [facility] Comment: Interpretive Data Fasting glucose >/= [...] interpretive data was last revised 2022. Calcium 12.4(H) 8.5 - 10.3 mg/dL [facility] Phosphorus, pl 3.2 2.3 - 4.5 mg/dL [facility] Albumin 3.5 3.5 - 5.0 g/dL [facility] Blood 06/10/2025 4:50 AM CDT 06/10/2025 4:59 AM CDT us Nuvia Wetzel [facility] BLOOD ORDERABLES Final R esult Performing Organization Address City/[facility]/ZIP Co de Phone Number [facility] [address] Department [place] [address] * eGFR (06/09/2025 11:24 AM CDT) eGFR 70 >=60 mL/min/1. 73 m2 Comment: Interpretive Data [...] interpretive data was last reviewed 2021. Blood 06/09/2025 11:2 4 AM CDT 06/09/2025 11:33 AM CDT us Nuvia Wetzel [facility] LAB BLOOD ORDERABLES Final R esult [facility] [address] Department [place] [address] * (ABNORMAL) Basic metabolic panel (06/09/2025 11:24 AM CDT) [facility] Sodium 140 135 - 145 mmol/L Potassium, pl 3.5 3.3 - 4.9 mmol/L [facility] Chloride 99 97 - 110 mmol/L [facility] CO2 28 22 - 32 mmol/L [facility] Anion gap 13 2 - 15 mmol/L [facility] BUN 16 6 - 25 mg/dL [facility] Creatinine 0.87 0.60 - 1.10 mg/dL [facility] Glucose 145 70 - 199 mg/dL [facility] Comment: Interpretive Data Fasting glucose >/= [...] interpretive data was last revised 2022. Calcium 11.7(H) 8.5 - 10.3 mg/dL [facility] Blood 06/09/2025 11:2 4 AM CDT 06/09/2025 11:33 AM CDT Nuvia Byrd LAB BLOOD ORDERABLES Final R esult [facility] [address] Department [place] [address] * TRANSTHORACIC ECHO (TTE) COMPLETE W DOPPLER/CF W CONTRAST (06/08/2025 5:43 PM CDT) [facility] Estimated EF 45-50 % CONS SCIMAGE Anatomical Region Laterality Modality Ultrasound 06/08/2025 4:18 PM CDT Narrative 06/08/2025 9:52 PM CDT [facility] [address] [place] [address] ECHOCARDIOGRAM Patient Name: NELI VALENZUELA : 1950 (75y 3m) Sex: F Study Date: 06/08/2025 04:18:36 PM Ht(Inch): 60 Wt(Lb): 153.88 BSA: 1.72 Reliability Technician: Location: [id number] Order Provider: MYA BRYANT BMI: 30.05 BP: 171/80 Ref Provider: MYA BRYANT - PROCEDURES: Echocardiographic Report: Transthoracic Echocardiogram with 2D, M-Mode, Spectral and Color Flow Doppler examination and administration of intravenous contrast. INDICATIONS: Congestive heart failure. MEASUREMENTS: 2D/MM Value Range Doppler Value Range IVSd 2D 1.27 cm [ 0.60 - 0.90 ] AV Peak Umang 1.06 m/s [ 1.00 - 1.70 ] LVIDd 2D 2.99 cm [ 3.80 - 5.20 ] AV Peak PG 4.5 mmHg LVIDs 2D 2.32 cm [ 2.20 - 3.50 ] AV Mean PG 2.7 mmHg LVPWd 2D 1.24 cm [ 0.60 - 0.90 ] AV VTI 22.5 cm Estimated EF 45-50 % LEVAR VTI 1.7 cm2 LA Dimension 2D 4.04 cm [ 2.70 - 3.80 ] LVOT Peak Umang 0.80 m/s [ 0.70 - 1.10 ] AoR Diam 2D 3.01 cm [ 2.70 - 3.70 ] LVOT Diam 1.8 cm AoR Diam 2D Index 1.75 LVOT Peak PG 2.6 mmHg RA Volume 12.90 ml LVOT VTI 12.1 cm LA Volume Index 19.00 ml/m2 [ 16.00 - 34.00 ] MV Peak PG 13.5 mmHg TAPSE 1.18 cm [ 1.71 - 5.00 ] MV Mean PG 5.1 mmHg MV E Peak Umang 1.2 m/s [ 0.6 - 1.3 ] MV A Peak Umang 0.9 m/s [ 1.0 - 1.2 ] MV PHT 74.0 ms [ 20.0 - 100.0 ] MV Decel Time 281.0 ms [ 104.0 - 258.0 ] MVA PHT 3.0 ms MV E/A Ratio 1.3 TR Peak Umang 2.7 m/s [ 1.0 - 2.8 ] TR Peak PG 37 mmHg RVSP 45.2 mmHg [ 10.0 - 36.0 ] RA Pressure 8.0 mmHg PV Peak Umang 0.7 m/s [ 0.4 - 0.8 ] PV Peak PG 1.9 mmHg Lat E` Umang 0.05 m/s [ 0.10 - 0.15 ] Septal E` 0.05 m/s [ 0.08 - 0.15 ] E/E` 24.00 RV S` 0.06 m/s 2D/MM Value Range Doppler Value Range - FINDINGS: Study Quality: The study was technically adequate. Technically difficult study. Contrast was employed for LV opacification and endocardial border enhancement. BP: Blood pressure: 171/80 mmHg. Left Ventricle: Mild left ventricular systolic dysfunction. There is global hypokinesis. Ejection Fraction is estimated at 45-50 %. There is at least grade II diastolic dysfunction (impaired myocardial relaxation with elevated ventricular filling pressure). The left ventricular cavity is low normal in size. There is paradoxic septal motion. Moderate concentric left ventricular hypertrophy. Right Ventricle: Moderate right ventricular dysfunction (TAPSE 1.18cm, RV S' 0.06 m/s). Normal right ventricular size. Left Atrium: The left atrium is normal in size. Right Atrium: The right atrium is normal in size. Atrial Septum: Normal appearing atrial septum. Cannot exclude PFO by atrial septal color Doppler interrogation. Mitral Valve: Mild calcific mitral stenosis is present (VMax 1.8 m/s, mean gradient 5mmHg at HR 97bpm). Mild mitral valve regurgitation. Both leaflets appear mildly thickened. Mild mitral annular calcification. Aortic Valve: Probable tricuspid aortic valve, although not all cusps are well visualized. Aortic cusps appear moderately calcified. Aortic cusps appear moderately sclerotic. There is probably adequate aortic valve cusp separation. Mild aortic valve regurgitation. Tricuspid Valve: Normal appearance of the tricuspid leaflets. Moderate tricuspid regurgitation. Mildly elevated RVSP (estimated 45-50mmHg; RAP 8mmHg). Pulmonic Valve: Grossly normal appearing pulmonic valve. Pulmonic valve not well visualized. There is no pulmonic stenosis. Mild pulmonic regurgitation. Pericardium: Normal appearing pericardial thickness. No significant pericardial effusion. Aortic Root and Aorta: Normal caliber aortic root. Grossly normal ascending aorta. Aortic Arch: The aortic arch is poorly visualized. IVC: Size and compressability data are discordant suggesting intermediate right atrial pressures. CONCLUSIONS: 1. Mild left ventricular systolic dysfunction. There is global hypokinesis. Ejection Fraction is estimated at 45-50 %. There is at least grade II diastolic dysfunction (impaired myocardial relaxation with elevated ventricular filling pressure). The left ventricular cavity is low normal in size. There is paradoxic septal motion. Moderate concentric left ventricular hypertrophy. 2. Moderate right ventricular dysfunction (TAPSE 1.18cm, RV S' 0.06 m/s). Normal right ventricular size. 3. Mild calcific mitral stenosis is present (VMax 1.8 m/s, mean gradient 5mmHg at HR 97bpm). Mild mitral valve regurgitation. Both leaflets appear mildly thickened. Mild mitral annular calcification. 4. Probable tricuspid aortic valve, although not all cusps are well visualized. Aortic cusps appear moderately calcified. Aortic cusps appear moderately sclerotic. There is probably adequate aortic valve cusp separation. Mild aortic valve regurgitation. 5. Normal appearance of the tricuspid leaflets. Moderate tricuspid regurgitation. Mildly elevated RVSP (estimated 45-50mmHg; RAP 8mmHg). 6. At the time of this study the patient is in atrial fibrillation (rates 60- 100's). Electronically Signed By: Julien Chawla MD PhD 06/08/2025 9:51:35 PM CDT Procedure Note Julien Chawla MD PhD - 06/08/2025 [facility] [address] [place] [address] ECHOCARDIOGRAM Patient Name: NELI VALENZUELA : 1950 (75y 3m) Sex: F Study Date: 06/08/2025 04:18:36 PM Ht(Inch): 60 Wt(Lb): 153.88 BSA: 1.72 Reliability Technician: Location: [id number] Order Provider: MYA BRYANT BMI: 30.05 BP: 171/80 Ref Provider: MYA BRYANT - PROCEDURES: Echocardiographic Report: Transthoracic Echocardiogram with 2D, M-Mode,Spectral and Color Flow Doppler examination and administration of intravenouscontrast. INDICATIONS: Congestive heart failure. MEASUREMENTS: 2D/MM Value Range DopplerValue Range IVSd 2D 1.27 cm [ 0.60 - 0.90 ] AV Peak Vel1.06 m/s [ 1.00 - 1.70 ] LVIDd 2D 2.99 cm [ 3.80 - 5.20 ] AV Peak PG4.5 mmHg LVIDs 2D 2.32 cm [ 2.20 - 3.50 ] AV Mean PG2.7 mmHg LVPWd 2D 1.24 cm [ 0.60 - 0.90 ] AV VTI22.5 cm Estimated EF 45-50 % LEVAR VTI1.7 cm2 LA Dimension 2D 4.04 cm [ 2.70 - 3.80 ] LVOT Peak Vel0.80 m/s [ 0.70 - 1.10 ] AoR Diam 2D 3.01 cm [ 2.70 - 3.70 ] LVOT Diam1.8 cm AoR Diam 2D Index 1.75 LVOT Peak PG2.6 mmHg RA Volume 12.90 ml LVOT VTI12.1 cm LA Volume Index 19.00 ml/m2 [ 16.00 - 34.00 ] MV Peak PG13.5 mmHg TAPSE 1.18 cm [ 1.71 - 5.00 ] MV Mean PG5.1 mmHg MV E Peak Umang 1.2 m/s [ 0.6 - 1.3 ] MV A Peak Umang 0.9 m/s [ 1.0 - 1.2 ] MV PHT 74.0 ms [ 20.0 - 100.0 ] MV Decel Time 281.0 ms [ 104.0 - 258.0 ] MVA PHT 3.0 ms MV E/A Ratio 1.3 TR Peak Umang 2.7 m/s [ 1.0 - 2.8 ] TR Peak PG 37 mmHg RVSP 45.2 mmHg [ 10.0 - 36.0 ] RA Pressure 8.0 mmHg PV Peak Umang 0.7 m/s [ 0.4 - 0.8 ] PV Peak PG 1.9 mmHg Lat E` Umang 0.05 m/s [ 0.10 - 0.15 ] Septal E` 0.05 m/s [ 0.08 - 0.15 ] E/E` 24.00 RV S` 0.06 m/s 2D/MM Value Range DopplerValue Range - FINDINGS: Study Quality: The study was technically adequate. Technically difficultstudy. Contrast was employed for LV opacification and endocardial border enhancement. BP: Blood pressure: 171/80 mmHg. Left Ventricle: Mild left ventricular systolic dysfunction. There isglobal hypokinesis. Ejection Fraction is estimated at 45-50 %. There is at least grade IIdiastolic dysfunction (impaired myocardial relaxation with elevated ventricularfilling pressure). The left ventricular cavity is low normal in size. There is paradoxicseptal motion. Moderate concentric left ventricular hypertrophy. Right Ventricle: Moderate right ventricular dysfunction (TAPSE 1.18cm, RVS' 0.06 m/s). Normal right ventricular size. Left Atrium: The left atrium is normal in size. Right Atrium: The right atrium is normal in size. Atrial Septum: Normal appearing atrial septum. Cannot exclude PFO byatrial septal color Doppler interrogation. Mitral Valve: Mild calcific mitral stenosis is present (VMax 1.8 m/s, meangradient 5mmHg at HR 97bpm). Mild mitral valve regurgitation. Both leaflets appear mildlythickened. Mild mitral annular calcification. Aortic Valve: Probable tricuspid aortic valve, although not all cusps arewell visualized. Aortic cusps appear moderately calcified. Aortic cusps appearmoderately sclerotic. There is probably adequate aortic valve cusp separation. Mildaortic valve regurgitation. Tricuspid Valve: Normal appearance of the tricuspid leaflets. Moderatetricuspid regurgitation. Mildly elevated RVSP (estimated 45-50mmHg; RAP 8mmHg). Pulmonic Valve: Grossly normal appearing pulmonic valve. Pulmonic valvenot well visualized. There is no pulmonic stenosis. Mild pulmonic regurgitation. Pericardium: Normal appearing pericardial thickness. No significantpericardial effusion. Aortic Root and Aorta: Normal caliber aortic root. Grossly normalascending aorta. Aortic Arch: The aortic arch is poorly visualized. IVC: Size and compressability data are discordant suggesting intermediateright atrial pressures. CONCLUSIONS: 1. Mild left ventricular systolic dysfunction. There is globalhypokinesis. Ejection Fraction is estimated at 45-50 %. There is at least grade II diastolicdysfunction (impaired myocardial relaxation with elevated ventricular fillingpressure). The left ventricular cavity is low normal in size. There is paradoxic septalmotion. Moderate concentric left ventricular hypertrophy. 2. Moderate right ventricular dysfunction (TAPSE 1.18cm, RV S' 0.06 m/s).Normal right ventricular size. 3. Mild calcific mitral stenosis is present (VMax 1.8 m/s, mean [id number] at HR 97bpm). Mild mitral valve regurgitation. Both leaflets appear mildlythickened. Mild mitral annular calcification. 4. Probable tricuspid aortic valve, although not all cusps are wellvisualized. Aortic cusps appear moderately calcified. Aortic cusps appear moderatelysclerotic. There is probably adequate aortic valve cusp separation. Mild aortic valveregurgitation. 5. Normal appearance of the tricuspid leaflets. Moderate tricuspidregurgitation. Mildly elevated RVSP (estimated 45-50mmHg; RAP 8mmHg). 6. At the time of this study the patient is in atrial fibrillation (rates60- 100's). Electronically Signed By: Julien Chawla MD PhD 06/08/2025 9:51:35 PM CDT Mya Stephanie [place] ON SITE COORDINATOR CV ECHO PROCEDUR ES Final Result * Conditional use lavender-top tube on ice (06/08/2025 4:26 PM CDT) Pathologist [facility] Conditional lavender-top tube Complete Blood 06/08/2025 4:26 PM CDT 06/08/2025 5:13 PM CDT us Nuvia Byrd DO LAB BLOOD ORDERABLES Final R esult Performing Organization Address City/[facility]/ZIP Co de Phone Number [facility] [address] [place] [address] * Conditional use lavender-top tube on ice (06/08/2025 4:26 PM CDT) [facility] Conditional lavender-top tube Complete Blood 06/08/2025 4:26 PM CDT 06/08/2025 5:13 PM CDT us Joe Corcoran DO LAB BLOOD ORDERABLES Tawnya l Result Performing Organization Address [facility] de Phone Number [facility] [address] [place] [address] * (ABNORMAL) PTH with reflex to PTHrP (hypercalcemia reflex) (06/08/2025 4:26 PM CDT) [facility] PTH 6.5(L) 18.0 - 59.0 pg/mL Blood 06/08/2025 4:26 PM CDT 06/08/2025 4:48 PM CDT us Joe Corcoran DO LAB BLOOD ORDERABLES Tawnya l Result Performing Organization Address City/[facility] Co de Phone Number [facility] [address] [place] [address] * (ABNORMAL) BLOOD MISC TO KUNA (06/08/2025 4:26 PM CDT) [facility] Test name, chem DHVD 1,25-Dihy droxyvita min D, Serum [place] [facility] Misc See Footnote( A) [facility] Comment: Test Result Flag Unit RefValue 1,25-Dihydroxyvitamin D, S 85 H pg/mL 18-78 ADDITIONAL INFORMATION This test was developed and its performance characteristics determined by [facility] in a manner consistent with CLIA requirements. This test has not been cleared or approved by the U.S. Food and Drug Administration. Test Performed by: [facility] [place] [address] Bender Helper: Alex Schultz Ph.D.; CLIA# [id number] Blood 06/08/2025 4:26 PM CDT 06/08/2025 8:33 PM CDT Lenka SMITH [facility] - 06/13/2025 2:24 PM CDT DHVD 1,25-Dihydroxyvitamin D, Serum us Joe Corcoran DO LAB BLOOD ORDERABLES Tawnya casandra Result [facility] [address] Department [place] [address] [place] [facility] * PTH-related peptide (06/08/2025 4:26 PM CDT) PTH Related Protein <0.5 < or = 4.2 pmol/L [place] [facility] Comment: ADDITIONAL INFORMATION This test was developed and its performance characteristics determined by [facility] in a manner consistent with CLIA requirements. This test has not been cleared or approved by the U.S. Food and Drug Administration. Test Performed by: [facility] [address] [place] [address] Bender Helper: Alex Schultz Ph.D.; CLIA# [id number] Blood 06/08/2025 4:26 PM CDT 06/08/2025 5:13 PM CDT Narrative [facility] - 06/14/2025 1:46 PM CDT This test was reflexed from a PTH Intact result. Joe Kelley Nilo DO LAB BLOOD ORDERABLES Tawnya l Result [facility] [address] Department [employer] [place], [place] [id number] [place] [facility] * Vitamin D 25 hydroxy (06/08/2025 4:26 PM CDT) Vitamin D 25-OH 66 30 - 80 ng/mL Blood 06/08/2025 4:26 PM CDT 06/08/2025 4:48 PM CDT Joe Kelley Nilo LAB BLOOD ORDERABLES Tawnya l Result Performing Organization Address [facility] Co de Phone Number [facility] [address] [place] [address] * US Liver (06/08/2025 9:48 AM CDT) Anatomical Region Laterality Modality Abdomen N/A Ultrasound 06/08/2025 10:0 1 AM CDT Impressions 06/08/2025 10:01 AM CDT Negative examination. Electronically signed by: Atul El M.D. Narrative 06/08/2025 10:01 AM CDT EXAM: US LIVER CLINICAL HISTORY: increased alkaline phosphatase COMPARISON: None available. FINDINGS: Liver: The liver is unremarkable in appearance. Gallbladder: The gallbladder is within normal limits. No gallstones are identified. Imaging of the gallbladder is degraded due to position and bowel gas. Bile ducts: There is no evidence of biliary ductal dilatation. The common bile duct measures 5.7 mm in greatest diameter. Pancreas: The visualized portions of the pancreas are unremarkable. Portal vein and inferior vena cava: Patent and within normal limits. Procedure Note Atul El MD - 06/08/2025 EXAM: US LIVER CLINICAL HISTORY: increased alkaline phosphatase COMPARISON: None available. FINDINGS: Liver: The liver is unremarkable in appearance. Gallbladder: The gallbladder is within normal limits. No gallstones are identified. Imaging of the gallbladder is degraded due to position and bowel gas. Bile ducts: There is no evidence of biliary ductal dilatation. The common bile duct measures 5.7 mm in greatest diameter. Pancreas: The visualized portions of the pancreas are unremarkable. Portal vein and inferior vena cava: Patent and within normal limits. IMPRESSION: Negative examination. Electronically signed by: Atul El M.D. Mya Bryant ON SITE COORDINATOR IMG US PROCEDURE S Final Result * eGFR (06/08/2025 5:26 AM CDT) eGFR 62 >=60 mL/min/1. 73 m2 Comment: Interpretive Data [...] interpretive data was last reviewed 2021. Blood 06/08/2025 5:26 AM CDT 06/08/2025 5:36 AM CDT Ananda Aguilar MD LAB BLOOD ORDERABLES Final Result [facility] [address] Department [place] [address] * (ABNORMAL) Differential, auto (06/08/2025 5:26 AM CDT) Neutrophil abs 6.77(H) 1.50 - 6.50 K/cumm Imm gran abs 0.06 0.00 - 0.10 K/cumm [facility] Lymphocyte abs 1.17 0.80 - 3.30 K/cumm [facility] Monocyte abs 1.28(H) 0.20 - 0.80 K/cumm [facility] Eosinophil abs 0.42 0.00 - 0.50 K/cumm [facility] Basophil abs 0.10 0.00 - 0.10 K/cumm [facility] Neutrophil pct 69.1 % [facility] Comment: Interpretive Data Percent cell count reference ranges are not reported, since discordance with absolute values may lead to misinterpretation of CBC data. Current Interpretive Data was last revised on 2017. Imm gran pct 0.6 % [facility] Comment: Interpretive Data Percent cell count reference ranges are not reported, since discordance with absolute values may lead to misinterpretation of CBC data. Current Interpretive Data was last revised on 2017. Lymphocyte pct 11.9 % [facility] Comment: Interpretive Data Percent cell count reference ranges are not reported, since discordance with absolute values may lead to misinterpretation of CBC data. Current Interpretive Data was last revised on 2017. Monocyte pct 13.1 % [facility] Comment: Interpretive Data Percent cell count reference ranges are not reported, since discordance with absolute values may lead to misinterpretation of CBC data. Current Interpretive Data was last revised on 2017. Eosinophil pct 4.3 % [facility] Comment: Interpretive Data Percent cell count reference ranges are not reported, since discordance with absolute values may lead to misinterpretation of CBC data. Current Interpretive Data was last revised on 2017. Basophil pct 1.0 % [facility] Comment: Interpretive Data Percent cell count reference ranges are not reported, since discordance with absolute values may lead to misinterpretation of CBC data. Current Interpretive Data was last revised on 2017. Blood 06/08/2025 5:26 AM CDT 06/08/2025 5:36 AM CDT Ananda Aguilar MD LAB BLOOD ORDERABLES Final Result Performing Organization Address City/[facility]/ZIP Co de Phone Number [facility] [address] Department of Laboratories [place], [place] [phone] * (ABNORMAL) Calcium, ionized (06/08/2025 5:26 AM CDT) [facility] Calcium, Ionized 5.38(H) 4.50 - 5.10 mg/dL Blood 06/08/2025 5:26 AM CDT 06/08/2025 5:32 AM CDT Mya Bryant NP LAB BLOOD ORDERA BLES Final Result Performing Organization Address [facility] Co de Phone Number [facility] [address] Department [employer] [place], [place] [id number] * (ABNORMAL) CBC with auto differential (06/08/2025 5:26 AM CDT) [facility] WBC 9.80 3.80 - 9.90 K/cumm Hgb 12.1 11.9 - 15.5 g/dL [facility] Hct 37.8 35.6 - 45.5 % [facility] Plt 279 150 - 400 K/cumm [facility] MPV 11.6 9.1 - 12.3 fL [facility] RBC 4.40 3.90 - 5.20 M/cumm [facility] MCV 85.9 81.3 - 96.4 fL [facility] MCH 27.5 27.1 - 33.3 pg [facility] MCHC 32.0(L) 32.3 - 35.7 g/dL [facility] RDW CV 15.9(H) 11.1 - 14.9 % [facility] RDW SD 49.3(H) 35.7 - 48.1 fL [facility] NRBC abs 0.00 0.00 - 0.01 K/cumm [facility] Blood 06/08/2025 5:26 AM CDT 06/08/2025 5:36 AM CDT Ananda Aguialr MD LAB BLOOD ORDERABLES Final Result Performing Organization Address [facility] de Phone Number [facility] [address] [place] [address] * (ABNORMAL) Hemoglobin A1c (06/08/2025 5:26 AM CDT) Hgb A1C 6.2(H) 4.0 - 5.6 % Estimated Average Glucose 131 mg/dL [facility] Comment: The ADA recommends reporting an estimated Average Glucose (eAG) with all Hemoglobin A1c results using the equation derived from a study of 507 normal and diabetic adults. Minority populations were underrepresented and children were not included. (Diabetes Care 31:9569-9647, 2008). The eAG is not equivalent to a fasting glucose. Blood 06/08/2025 5:26 AM CDT 06/08/2025 5:36 AM CDT Result [facility] Mya Bryant NP LAB BLOOD ORDERA BLES Final Result Performing Organization Address [facility] Co de Phone Number [facility] [address] Department [employer] [place] [address] * (ABNORMAL) Hepatic function panel (06/08/2025 5:26 AM CDT) Bilirubin, total 0.5 0.1 - 1.2 mg/dL Bilirubin, direct 0.3 0.1 - 0.3 mg/dL [facility] Protein, pl 6.6 6.5 - 8.5 g/dL [facility] Albumin 3.5 3.5 - 5.0 g/dL [facility] Alk phos 251(H) 40 - 130 Units/L [facility] ALT 16 7 - 45 Units/L [facility] AST 23 10 - 45 Units/L [facility] Blood 06/08/2025 5:26 AM CDT 06/08/2025 5:36 AM CDT Mya Bryant ON SITE COORDINATOR LAB BLOOD ORDERA BLES Final Result [facility] [address] Department [place] [address] * (ABNORMAL) Basic metabolic panel (06/08/2025 5:26 AM CDT) Sodium 139 135 - 145 mmol/L Potassium, pl 3.0(L) 3.3 - 4.9 mmol/L [facility] Chloride 97 97 - 110 mmol/L [facility] CO2 30 22 - 32 mmol/L [facility] Anion gap 12 2 - 15 mmol/L [facility] BUN 17 6 - 25 mg/dL [facility] Creatinine 0.96 0.60 - 1.10 mg/dL [facility] Glucose 85 70 - 199 mg/dL [facility] Comment: Interpretive Data Fasting glucose >/= [...] interpretive data was last revised 2022. Calcium 11.9(H) 8.5 - 10.3 mg/dL [facility] Blood 06/08/2025 5:26 AM CDT 06/08/2025 5:36 AM CDT Ananda Aguilar MD LAB BLOOD ORDERABLES Final Result Performing Organization Address [facility] Co de Phone Number [facility] [address] [facility] [employer] [place], [place] [phone] * CK - Add on lab test (06/07/2025 6:20 PM CDT) Acceptable Yes Blood 06/07/2025 6:20 PM CDT 06/07/2025 6:20 PM CDT Narrative [facility] - 06/07/2025 6:20 PM CDT Name of Test->CK Mya Bryant NP LAB BLOOD ORDERA BLES Final Result Performing Organization Address [facility] de Phone Number [facility] [address] [facility] [employer] [place], [place] [phone] * (ABNORMAL) Calcium, ionized (06/07/2025 6:04 PM CDT) Calcium, Ionized 5.91(H) 4.50 - 5.10 mg/dL Blood 06/07/2025 6:04 PM CDT 06/07/2025 6:17 PM CDT Mya Bryant NP LAB BLOOD ORDERA BLES Final Result Performing Organization Address [facility] Co de Phone Number [facility] [address] Department [employer] [place], [place] [id number] * (ABNORMAL) PTH (06/07/2025 6:04 PM CDT) PTH <6.0(L) 18.0 - 59.0 pg/mL Blood 06/07/2025 6:04 PM CDT 06/07/2025 6:19 PM CDT Mya Barrosowrath ON SITE COORDINATOR LAB BLOOD ORDERA BLES Final Result Performing Organization Address [facility]/ZIP Co de Phone Number [facility] [address] [facility] [place] [address] * Vitamin D 25 hydroxy - Add on lab test (06/07/2025 3:12 PM CDT) Acceptable Yes Blood 06/07/2025 3:12 PM CDT 06/07/2025 3:12 PM CDT Narrative [facility] - 06/07/2025 3:12 PM CDT Name of Test->Vitamin D 25 hydroxy us Mya Stephanie Bryant ON SITE COORDINATOR LAB BLOOD ORDERA BLES Final Result Performing Organization Address [facility] Co de Phone Number [facility] [address] [facility] [place] [address] * Magnesium - Add on lab test (06/07/2025 3:06 PM CDT) Acceptable Yes Blood 06/07/2025 3:06 PM CDT 06/07/2025 3:06 PM CDT Narrative [facility] - 06/07/2025 3:07 PM CDT Name of Test->Magnesium us Mya Stephanie Bryant ON SITE COORDINATOR LAB BLOOD ORDERA BLES Final Result Performing Organization Address [facility] Co de Phone Number [facility] [address] [facility] [place] [address] * NT-Pro BNP - Add on lab test (06/07/2025 3:06 PM CDT) Acceptable Yes Blood 06/07/2025 3:06 PM CDT 06/07/2025 3:06 PM CDT Narrative [facility] - 06/07/2025 3:07 PM CDT Name of Test->NT-Pro BNP us Mya Brown Annette ON SITE COORDINATOR LAB BLOOD ORDERA BLES Final Result Performing Organization Address [facility]/ZIP Co de Phone Number [facility] [address] [facility] [place] [address] * Procalcitonin - Add on lab test (06/07/2025 3:06 PM CDT) Acceptable Yes Blood 06/07/2025 3:06 PM CDT 06/07/2025 3:06 PM CDT Narrative [facility] - 06/07/2025 3:07 PM CDT Name of Test->Procalcitonin Mya Brown Annette ON SITE COORDINATOR LAB BLOOD ORDERA BLES Final Result Performing Organization Address [facility] Co de Phone Number [facility] [address] [facility] [place] [address] * TSH reflex Free T4 - Add on lab test (06/07/2025 3:06 PM CDT) Acceptable Yes Blood 06/07/2025 3:06 PM CDT 06/07/2025 3:06 PM CDT Narrative [facility] - 06/07/2025 3:07 PM CDT Name of Test->TSH reflex Free T4 us Mya Brown Annette ON SITE COORDINATOR LAB BLOOD ORDERA BLES Final Result Performing Organization Address [facility]/ZIP Co de Phone Number [facility] [address] [place] [address] * XR Chest Pa Lateral 2 Views (06/07/2025 11:45 AM CDT) Anatomical Region Laterality Modality Body, Chest N/A Computed Radiogr aphy 06/07/2025 12:0 6 PM CDT Impressions 06/07/2025 12:06 PM CDT Postsurgical changes of median sternotomy are noted. The 1st, 3rd, and 4th sternal wires are fractured, which is not seen on prior comparison radiographs. Postsurgical changes of mitral valvuloplasty. The heart is normal in size. Mild pulmonary vascular congestion. Bilateral upper lung zone pulmonary opacities are noted, nonspecific, but may be infectious or inflammatory in etiology, or related to the patient's COPD. No pneumothorax. No pleural effusion. Reverse right shoulder arthroplasty. Spinal instrumentation hardware. Electronically signed by: Eugenio Quintana MD Narrative 06/07/2025 12:06 PM CDT Examination: AP [and lateral chest radiographs HISTORY: Abdominal pain, COPD, weakness COMPARISON: 03/22/2014 chest radiographs Procedure Note Eugenio Quintana MD - 06/07/2025 Examination: AP [and lateral chest radiographs HISTORY: Abdominal pain, COPD, weakness COMPARISON: 03/22/2014 chest radiographs IMPRESSION: Postsurgical changes of median sternotomy are noted. The 1st, 3rd, and 4th sternal wires are fractured, which is not seen on prior comparison radiographs. Postsurgical changes of mitral valvuloplasty. The heart is normal in size. Mild pulmonary vascular congestion. Bilateral upper lung zone pulmonary opacities are noted, nonspecific, but may be infectious or inflammatory in etiology, or related to the patient's COPD. No pneumothorax. No pleural effusion. Reverse right shoulder arthroplasty. Spinal instrumentation hardware. Electronically signed by: Eugenio Quintana MD us Abdirahman Childs DO IMG XR PROCEDURES Final Resu lt * (ABNORMAL) Urinalysis reflex to microscopic and culture Urine (06/07/2025 11:17 AM CDT) Color, ur Straw Yellow Clarity, ur Clear Clear [facility] Specific gravity, ur 1.009 1.003 - 1.030 [facility] pH, urine 6.5 [facility] Comment: Interpretive Data U rine pH is affected by diet, medications, systemic acid-base disturbances, and renal tubular function. pH may affect urinary stone formation. For example, urine pH below 6.0 may help reduce the tendency for calcium phosphate stones and pH greater than 6.0 may reduce the tendency for uric acid stone formation. Source: [facility] Current Interpretive Data was last revised on 2017 Protein, ur ql Negative Negative [facility] Glucose, ur ql Negative Negative [facility] Ketones, ur Negative Negative [facility] Bilirubin, ur Negative Negative [facility] Blood, ur Negative Negative [facility] Urobilinogen, ur <2.0 <2.0 mg/dL [facility] Nitrite, ur Negative Negative [facility] Leukocyte esterase, ur 2+(A) Negative [facility] UA reflex comment Reflex to microscopic UA will be performed. [facility] Urine 06/07/2025 11:1 7 AM CDT 06/07/2025 11:18 AM CDT Abdirahman Childs DO LAB MICROBIOLOGY - GENERAL O RDERABLES Final Result Performing Organization Address [facility] de Phone Number [facility] [address] [place] [address] * (ABNORMAL) Urinalysis, microscopic only (06/07/2025 11:17 AM CDT) WBC, ur 0-5 0 - 5 /HPF RBC, ur 0-2 0 - 2 /HPF [facility] Bacteria, ur 1+(A) [facility] Mucous, ur Present(A) [facility] Hyaline casts, ur 1-5 0 - 10 /LPF [facility] Culture Reflex Comment Reflex conditions for urine culture (WBC >10) not met. [facility] Urine 06/07/2025 11:1 7 AM CDT 06/07/2025 11:29 AM CDT Abdirahman Childs DO LAB URINE ORDERABLES Final R esult Performing Organization Address [facility]/ZIP Co de Phone Number [facility] [address] Department [employer] [place], [place] [id number] * (ABNORMAL) Troponin T high-sensitivity 2-hour (06/07/2025 11:03 AM CDT) Trop T hs 21(H) <=14 ng/L Comment: Interpretive Data For further hscTnT resources including the diagnostic algorithm and an aid in interpretation, copy and paste this link: https://nrl.testcatalog.org/show/hsTrop Current Interpretive Data last revised 2020. Trop T hs delta -2 ng/L [facility] Trop T hs interp Insignificant [facility] Blood 06/07/2025 11:0 3 AM CDT 06/07/2025 11:12 AM CDT Abdirahman Childs DO LAB BLOOD ORDERABLES Final R esult Performing Organization Address City/[facility]/ZIP Co de Phone Number [facility] [address] Department [employer] [place], [place] [id number] * Procalcitonin (06/07/2025 11:03 AM CDT) [facility] Procalcitonin 0.13 <=0.25 ng/mL Blood 06/07/2025 11:0 3 AM CDT 06/07/2025 11:12 AM CDT Darius Gonzalez MD LAB BLOOD ORDERABLES Final Resul t Performing Organization Address City/[facility]/ZIP Co de Phone Number [facility] [address] [employer] [place], [place] [phone] * (ABNORMAL) Pro B-type natriuretic peptide (06/07/2025 11:03 AM CDT) [facility] NT-proBNP 1,101(H) <=300 pg/mL Comment: Interpretive Comments: A. Dyspnea in Acute Care Setting All Ages: < 300 pg/ml, acute heart failure unlikely. < 50 yrs: 300 - 450 pg/ml, further investigation warranted. > 450 pg/ml, acute heart failure likely. 50 - 74 yrs: 300 - 900 pg/ml, further investigation warranted. > 900 pg/ml, acute heart failure likely . > or = 75 yrs: 450 - 1800 pg/ml, further investigation warranted. > 1800 pg/ml, acute heart failure likely. B. Non-acute Setting < 75 yrs < 125 pg/ml, rules out heart failure. > or = 125 pg/ml, further investigation warranted. > or = 75 yrs < 450 pg/ml, rules out heart failure. > or = 450 pg/ml, further investigation warranted. - Knowledge of each individual patient's NT-proBNP range may be more useful than using similar cut-points for every patient. Please note that marked elevations in NT-proBNP levels may be observed in state other than Left Ventricular Congestive Failure, including: acute coronary syndromes, right heart strain/failure (including pulmonary embolism and cor pulmonale), critical illness, renal failure, as well as advanced age. - References: 1. Lydia TRUJILLO et.al. Eur Heart J. 2006:27:330-337. 2. Fahad RUBIO, [place] CHAMBERS. J. AM Chadwick Cardiol: Cardiovasc Imag. 2009;2: 216- 225. Interpretive Data Last Revised Date: 2018. Blood 06/07/2025 11:0 3 AM CDT 06/07/2025 11:12 AM CDT Darius Gonzalez MD LAB BLOOD ORDERABLES Final Resul t Performing Organization Address [facility] de Phone Number [facility] [address] [employer] [place], [place] [id number] * Thyroid Function Barry (06/07/2025 11:03 AM CDT) Pathologist [facility] TSH 1.16 0.30 - 4.20 mcIUnit/mL Blood 06/07/2025 11:0 3 AM CDT 06/07/2025 11:12 AM CDT Darius Gonzalez MD LAB BLOOD ORDERABLES Final Resul t Performing Organization Address [facility] de Phone Number [facility] [address] [place] [address] * Respiratory pathogen panel Nasopharyngeal (06/07/2025 11:03 AM CDT) Pathologist [facility] Influenza A RNA Not Detected Not Detected [facility] Influenza B RNA Not Detected Not Detected [facility] RSV RNA Not Detected Not Detected [facility] COVID-19 RNA Not Detected Not Detected [facility] Coronavirus 229E RNA Not Detected Not Detected [facility] Coronavirus HKU1 RNA Not Detected Not Detected [facility] Coronavirus NL63 RNA Not Detected Not Detected [facility] Coronavirus OC43 RNA Not Detected Not Detected [facility] Adenovirus DNA Not Detected Not Detected [facility] Metapneumovirus RNA Not Detected Not Detected [facility] Rhinovirus/Enterov irus RNA Not Detected Not Detected [facility] Parainfluenza 1 RNA Not Detected Not Detected [facility] Parainfluenza 2 RNA Not Detected Not Detected [facility] Parainfluenza 3 RNA Not Detected Not Detected [facility] Parainfluenza 4 RNA Not Detected Not Detected [facility] B. pertussis DNA Not Detected Not Detected [facility] B. parapertussis DNA Not Detected Not Detected [facility] C. pneumoniae DNA Not Detected Not Detected [facility] M. pneumoniae DNA Not Detected Not Detected [facility] Comment: Interpretive Data The [employer] FilmArray Respiratory Panel (RP2.1) assay is a multiplexed real-time PCR based nucleic acid test capable of simultaneous qualitative detection and identification of multiple respiratory viral and bacterial nucleic acids, including SARS Coronavirus 2 (the causative agent of COVID-19). The following bacteria, viruses and virus subtypes can be identified using the FilmArray RP2.1 assay: Bordetella pertussis, Bordetella parapertussis, Chlamydia pneumoniae, Mycoplasma pneumoniae, Adenovirus, SARS Coronavirus 2, seasonal coronaviruses (Coronavirus HKU1, Coronavirus NL63, Coronavirus 229E, and Coronavirus OC43), Influenza A, Influenza A subtype H1, Influenza A subtype H3, Influenza A subtype 2009 H1, Influenza B, Metapneumovirus, Parainfluenza 1, Parainfluenza 2, Parainfluenza 3, Parainfluenza 4, RSV, Rhinovirus/Enterovirus. Due to the genetic similarity between human Rhinovirus and Enterovirus, the FilmArray RP2.1 assay cannot reliably differentiate them. Coronavirus OC43 may cross-react with some isolates of Coronavirus HKU1. A dual positive result may be due to cross-reactivity or may indicate a co- infection. The detection and identification of specific viral and bacterial nucleic acids from individuals exhibiting signs and symptoms of a respiratory infection aids in the diagnosis of respiratory infection if used in conjunction with other clinical and epidemiological information. The results of this test should not be used as the sole basis for diagnosis, treatment, or other management decisions. Negative results in the setting of a respiratory illness may be due to infection with pathogens that are not detected by this test. Positive results do not rule out infection/co-infection with other organisms. The agent(s) detected by the FilmArray RP2.1 may not be the definite cause of disease. Additional testing (lab, imaging, etc.) may be necessary when evaluating a patient with possible respiratory tract infection. The FilmArray RP2.1 assay has FDA clearance for testing of ON SITE COORDINATOR swabs. The performance characteristics of this assay have been determined by [facility]. Current interpretive data was last revised on 2021. Nasopharyngeal 06/07/2025 11 :03 AM CDT 06/07/2025 11:21 AM CDT Narrative [facility] - 06/07/2025 12:18 PM CDT Is the Patient experiencing symptoms consistent with COVID?->Yes Surveillance testing for transplant patient?->No Abdirahman Childs DO LAB MICROBIOLOGY - GENERAL O RDERABLES Final Result Performing Organization Address [facility] Co de Phone Number [facility] [address] [place] [address] MBC * Vitamin D 25 hydroxy (06/07/2025 11:03 AM CDT) Pathologist [facility] Vitamin D 25-OH 54 30 - 80 ng/mL Blood 06/07/2025 11:0 3 AM CDT 06/07/2025 11:12 AM CDT Darius Gonzalez MD LAB BLOOD ORDERABLES Final Resul t Performing Organization Address City/[facility] Co de Phone Number [facility] [address] [place] [address] * Magnesium (06/07/2025 11:03 AM CDT) Pathologist [facility] Magnesium 1.7 1.4 - 2.5 mg/dL Blood 06/07/2025 11:0 3 AM CDT 06/07/2025 11:12 AM CDT Darius Gonzalez MD LAB BLOOD ORDERABLES Final Resul t Performing Organization Address City/[facility] Co de Phone Number [facility] [address] [facility] [employer] [place], [place] [phone] * Creatine kinase (CK), total (06/07/2025 11:03 AM CDT) [facility] CK 33 30 - 200 Units/L Blood 06/07/2025 11:0 3 AM CDT 06/07/2025 11:12 AM CDT Darius Gonzalez MD LAB BLOOD ORDERABLES Final Resul t Performing Organization Address [facility] de Phone Number [facility] [address] [facility] [employer] [place], [place] [phone] * Troponin T HS (series) - Add on lab test (06/07/2025 10:39 AM CDT) [facility] Acceptable Yes Blood 06/07/2025 10:3 9 AM CDT 06/07/2025 10:39 AM CDT [facility]ative [facility] - 06/07/2025 10:39 AM CDT Name of Test->Troponin T HS (series) Abdirahman Childs DO LAB BLOOD ORDERABLES Final R esult Performing Organization Address [facility] Co de Phone Number [facility] [address] [facility] [employer] [place], [place] [phone] * Sepsis Lactate w/ Reflex (06/07/2025 9:50 AM CDT) [facility] Sepsis Lactate 1.4 0.7 - 2.0 mmol/L Blood 06/07/2025 9:50 AM CDT 06/07/2025 9:55 AM CDT Abdirahman Childs DO LAB BLOOD ORDERABLES Final R esult Performing Organization Address [facility] Co de Phone Number [facility] [address] Department of Laboratories [place], [place] [phone] * (ABNORMAL) Troponin T high-sensitivity series (baseline, 2hr, 4hr, 6hr) (06/07/2025 9:23 AM CDT) Trop T hs 23(H) <=14 ng/L Comment: Interpretive Data For further hscTnT resources including the diagnostic algorithm and an aid in interpretation, copy and paste this link: https://nrl.testcatalog.org/show/hsTrop Current Interpretive Data last revised 2020. Blood 06/07/2025 9:23 AM CDT 06/07/2025 9:32 AM CDT us Abdirahman Childs DO LAB BLOOD ORDERABLES Final R esult Performing Organization Address [facility] Co de Phone Number [facility] [address] Department [employer] [place], [place] [phone] * (ABNORMAL) eGFR (06/07/2025 9:23 AM CDT) eGFR 52(L) >=60 mL/min/1. 73 m2 Comment: Interpretive Data [...] interpretive data was last reviewed 2021. Blood 06/07/2025 9:23 AM CDT 06/07/2025 9:32 AM CDT us Baljinder Monreal MD LAB BLOOD ORDERABLES Final R esult [facility] [address] Department [place] [address] * (ABNORMAL) Differential, auto (06/07/2025 9:23 AM CDT) Neutrophil abs 8.55(H) 1.50 - 6.50 K/cumm Imm gran abs 0.05 0.00 - 0.10 K/cumm [facility] Lymphocyte abs 1.17 0.80 - 3.30 K/cumm [facility] Monocyte abs 1.48(H) 0.20 - 0.80 K/cumm [facility] Eosinophil abs 0.44 0.00 - 0.50 K/cumm [facility] Basophil abs 0.12(H) 0.00 - 0.10 K/cumm [facility] Neutrophil pct 72.5 % [facility] Comment: Interpretive Data Percent cell count reference ranges are not reported, since discordance with absolute values may lead to misinterpretation of CBC data. Current Interpretive Data was last revised on 2017. Imm gran pct 0.4 % [facility] Comment: Interpretive Data Percent cell count reference ranges are not reported, since discordance with absolute values may lead to misinterpretation of CBC data. Current Interpretive Data was last revised on 2017. Lymphocyte pct 9.9 % [facility] Comment: Interpretive Data Percent cell count reference ranges are not reported, since discordance with absolute values may lead to misinterpretation of CBC data. Current Interpretive Data was last revised on 2017. Monocyte pct 12.5 % [facility] Comment: Interpretive Data Percent cell count reference ranges are not reported, since discordance with absolute values may lead to misinterpretation of CBC data. Current Interpretive Data was last revised on 2017. Eosinophil pct 3.7 % [facility] Comment: Interpretive Data Percent cell count reference ranges are not reported, since discordance with absolute values may lead to misinterpretation of CBC data. Current Interpretive Data was last revised on 2017. Basophil pct 1.0 % [facility] Comment: Interpretive Data Percent cell count reference ranges are not reported, since discordance with absolute values may lead to misinterpretation of CBC data. Current Interpretive Data was last revised on 2017. Blood 06/07/2025 9:23 AM CDT 06/07/2025 9:33 AM CDT us Baljinder Monreal MD LAB BLOOD ORDERABLES Final R esult [facility] [address] Department [place] [address] * (ABNORMAL) CBC with auto differential (06/07/2025 9:23 AM CDT) WBC 11.81(H) 3.80 - 9.90 K/cumm Hgb 12.2 11.9 - 15.5 g/dL [facility] Hct 38.6 35.6 - 45.5 % [facility] Plt 327 150 - 400 K/cumm [facility] MPV 11.7 9.1 - 12.3 fL [facility] RBC 4.34 3.90 - 5.20 M/cumm [facility] MCV 88.9 81.3 - 96.4 fL [facility] MCH 28.1 27.1 - 33.3 pg [facility] MCHC 31.6(L) 32.3 - 35.7 g/dL [facility] RDW CV 15.8(H) 11.1 - 14.9 % [facility] RDW SD 50.9(H) 35.7 - 48.1 fL [facility] NRBC abs 0.00 0.00 - 0.01 K/cumm [facility] Blood 06/07/2025 9:23 AM CDT 06/07/2025 9:33 AM CDT us Abdirahman Childs DO LAB BLOOD ORDERABLES Final R esult [facility] [address] Department [place] [address] * (ABNORMAL) Comprehensive metabolic panel (06/07/2025 9:23 AM CDT) Sodium 140 135 - 145 mmol/L Potassium, pl 3.3 3.3 - 4.9 mmol/L [facility] Chloride 96(L) 97 - 110 mmol/L [facility] CO2 31 22 - 32 mmol/L [facility] Anion gap 13 2 - 15 mmol/L [facility] BUN 20 6 - 25 mg/dL [facility] Creatinine 1.12(H) 0.60 - 1.10 mg/dL [facility] Glucose 116 70 - 199 mg/dL [facility] Comment: Interpretive Data Fasting glucose >/= [...] interpretive data was last revised 2022. Calcium 12.2(H) 8.5 - 10.3 mg/dL [facility] Bilirubin, total 0.5 0.1 - 1.2 mg/dL [facility] Protein, pl 6.4(L) 6.5 - 8.5 g/dL [facility] Albumin 3.6 3.5 - 5.0 g/dL [facility] Alk phos 266(H) 40 - 130 Units/L [facility] ALT 17 7 - 45 Units/L [facility] AST 27 10 - 45 Units/L [facility] Comment:Slightly Hemolyzed S pecimen Blood 06/07/2025 9:23 AM CDT 06/07/2025 9:32 AM CDT Abdirahman Childs DO LAB BLOOD ORDERABLES Final R esult Performing Organization Address [facility] Co de Phone Number [facility] [address] Department [place] [address] * ECG 12 lead (06/07/2025 9:20 AM CDT) 06/07/2025 9:20 AM CDT Narrative [facility] - 06/07/2025 11:29 AM CDT Vent Rate: 111 bpm RR Interval: 538 msec NH Interval: 0 msec QRS Duration: 133 msec QT Interval: 381 msec QTC Interval: 447 msec P-R-T [place]: 0 - -66 - 25 degrees IMPRESSION: ATRIAL FIBRILLATION WITH RAPID VENTRICULAR RESPONSE RIGHT BUNDLE BRANCH BLOCK [120+ ms QRS DURATION, UPRIGHT V1, 40+ ms S IN I/aVL/V4/V5/V6] LEFT ANTERIOR FASCICULAR BLOCK ABNORMAL ECG Electronically Signed By: Julien Torres MD [facility] Baljinder Monreal MD ECG ORDERABLES Final Result Performing Organization Address [facility] Phone Number [facility] * POCT glucose (05/10/2025 11:58 AM CDT) [facility] Glucose, POC 149 70 - 199 mg/dL Comment: For Glucose values <35 mg/dl when Hematocrit is >60 mg/dl,the test may not accurately detect significant hypoglycemia,and testing in the Laboratory should be considered if clinically indicated. Blood 05/10/2025 11:5 8 AM CDT 05/10/2025 11:58 AM CDT La Maldonado MD LAB POCT ORDERABLES - DEVICE F inal Result Performing Organization Address [facility] Co de Phone Number [facility] [address] Department [place] [address] * POCT glucose (05/10/2025 6:07 AM CDT) [facility] Glucose, POC 135 70 - 199 mg/dL Comment: For Glucose values <35 mg/dl when Hematocrit is >60 mg/dl,the test may not accurately detect significant hypoglycemia,and testing in the Laboratory should be considered if clinically indicated. Blood 05/10/2025 6:07 AM CDT 05/10/2025 6:07 AM CDT La Maldonado MD LAB POCT ORDERABLES - DEVICE F inal Result Performing Organization Address [facility] Co de Phone Number [facility] [address] Department [place] [address] * eGFR (05/10/2025 4:24 AM CDT) [facility] eGFR 71 >=60 mL/min/1. 73 m2 Comment: [...] ORDERABLES Final Res ult Performing Organization Address City/[facility]/ZIP Co de Phone Number [facility] [address] [place] [address] * Magnesium (05/10/2025 4:24 AM CDT) [facility] Magnesium 2.0 1.4 - 2.5 mg/dL Blood 05/10/2025 4:24 AM CDT 05/10/2025 5:36 AM CDT La Maldonado MD LAB BLOOD ORDERABLES Final Res ult Performing Organization Address [facility] de Phone Number [facility] [address] [place] [address] * (ABNORMAL) Basic metabolic panel (05/10/2025 4:24 AM CDT) [facility] Sodium 139 135 - 145 mmol/L Potassium, pl 3.2(L) 3.3 - 4.9 mmol/L [facility] Chloride 99 97 - 110 mmol/L [facility] CO2 28 22 - 32 mmol/L [facility] Anion gap 12 2 - 15 mmol/L [facility] BUN 12 6 - 25 mg/dL [facility] Creatinine 0.86 0.60 - 1.10 mg/dL [facility] Glucose 131 70 - 199 mg/dL [facility] Comment: Interpretive Data Fasting glucose >/= [...] 2022. Calcium 9.0 8.5 - 10.3 mg/dL [facility] Blood 05/10/2025 4:24 AM CDT 05/10/2025 5:36 AM CDT La Maldonado MD LAB BLOOD ORDERABLES Final Res ult Performing Organization Address [facility] Co de Phone Number [facility] [address] [place] [address] * POCT glucose (05/09/2025 8:37 PM CDT) [...] DEVICE F inal Result Performing Organization Address [facility] de Phone Number [facility] [address] [facility] [place] [address] * POCT glucose (05/09/2025 4:42 PM CDT) [...] DEVICE F inal Result Performing Organization Address [facility] Co de Phone Number [facility] [address] [place] [address] * ECG 12 lead (05/09/2025 2:10 PM CDT) 05/09/2025 2:10 PM CDT Narrative [facility] - 05/10/2025 9:17 AM CDT Vent Rate: 86 bpm RR Interval: 697 msec NH Interval: 203 msec QRS Duration: 117 msec QT Interval: 381 msec QTC Interval: 424 msec P-R-T [place]: 49 - -46 - 27 degrees IMPRESSION: SINUS RHYTHM INCOMPLETE RIGHT BUNDLE BRANCH BLOCK LEFT ANTERIOR FASCICULAR BLOCK POOR R-WAVE PROGRESSION ABNORMAL ECG Electronically Signed By: Julien Torres MD [facility] La Maldonado MD ECG ORDERABLES Final Result Performing Organization Address [facility] Co de Phone Number [facility] * POCT glucose (05/09/2025 11:25 AM CDT) Glucose, POC 190 70 - 199 mg/dL Comment: For Glucose values <35 mg/dl when Hematocrit is >60 mg/dl,the test may not accurately detect significant hypoglycemia,and testing in the Laboratory should be considered if clinically indicated. Blood 05/09/2025 11:2 5 AM CDT 05/09/2025 11:25 AM CDT La Maldonado MD LAB POCT ORDERABLES - DEVICE F inal Result Performing Organization Address [facility] Co de Phone Number [facility] [address] Department [place] [address] * aPTT (05/09/2025 10:29 AM CDT) aPTT 33 26 - 38 sec Comment: Interpretive Data Heparin therapeutic range: 66.0 - 100.0 seconds. Range based on correlation with therapeutic heparin activity range of 0.3 - 0.7 Units/mL. Current interpretive data was last revised on 2023. Blood 05/09/2025 10:2 9 AM CDT 05/09/2025 10:46 AM CDT Obed Dumasandre LAB BLOOD ORDERABLES F inal Result Performing Organization Address [facility] Co de Phone Number [facility] [address] Department [employer] [place], [place] [id number] * Protime-INR (05/09/2025 10:29 AM CDT) PT 13.5 10.2 - 13.5 sec INR 1.20 0.90 - 1.20 [facility] Comment: Interpretive data Oral anticoagulant therapeutic ranges: Venous thromboembolism prophylaxis or treatment: 2.0-3.0 CARDIOLOGY Standard range: 2.0-3.0 High-intensity range: 2.5-3.5 Refer to indication-specific guidelines for appropriate target ranges for prosthetic heart valve replacement. Current interpretive data was last revised on 2019. Blood 05/09/2025 10:2 9 AM CDT 05/09/2025 10:46 AM CDT Obedangelia Dumasandre LAB BLOOD ORDERABLES F inal Result Performing Organization Address [facility] de Phone Number [facility] [address] Department [employer] [place], [place] [id number] * Magnesium - Add on lab test (05/09/2025 9:24 AM CDT) Acceptable Yes Blood 05/09/2025 9:24 AM CDT 05/09/2025 9:25 AM CDT Narrative [facility] - 05/09/2025 9:25 AM CDT Name of Test->Magnesium La Maldonado MD LAB BLOOD ORDERABLES Final Res ult Performing Organization Address [facility] Co de Phone Number [facility] [address] [facility] [employer] [place], [place] [id number] * (ABNORMAL) Differential, auto (05/09/2025 6:18 AM CDT) Neutrophil abs 4.95 1.50 - 6.50 K/cumm Imm gran abs 0.11(H) 0.00 - 0.10 K/cumm [facility] Lymphocyte abs 1.33 0.80 - 3.30 K/cumm [facility] Monocyte abs 1.12(H) 0.20 - 0.80 K/cumm [facility] Eosinophil abs 0.34 0.00 - 0.50 K/cumm [facility] Basophil abs 0.07 0.00 - 0.10 K/cumm [facility] Neutrophil pct 62.5 % [facility] Comment: Interpretive Data Percent cell count reference ranges are not reported, since discordance with absolute values may lead to misinterpretation of CBC data. Current Interpretive Data was last revised on 2017. Imm gran pct 1.4 % [facility] Comment: Interpretive Data Percent cell count reference ranges are not reported, since discordance with absolute values may lead to misinterpretation of CBC data. Current Interpretive Data was last revised on 2017. Lymphocyte pct 16.8 % [facility] Comment: Interpretive Data Percent cell count reference ranges are not reported, since discordance with absolute values may lead to misinterpretation of CBC data. Current Interpretive Data was last revised on 2017. Monocyte pct 14.1 % [facility] Comment: Interpretive Data Percent cell count reference ranges are not reported, since discordance with absolute values may lead to misinterpretation of CBC data. Current Interpretive Data was last revised on 2017. Eosinophil pct 4.3 % [facility] Comment: Interpretive Data Percent cell count reference ranges are not reported, since discordance with absolute values may lead to misinterpretation of CBC data. Current Interpretive Data was last revised on 2017. Basophil pct 0.9 % [facility] Comment: Interpretive Data Percent cell count reference ranges are not reported, since discordance with absolute values may lead to misinterpretation of CBC data. Current Interpretive Data was last revised on 2017. Blood 05/09/2025 6:18 AM CDT 05/09/2025 6:18 AM CDT Fifi Arrington MD LAB BLOOD ORDERABLES Final Resu lt Performing Organization Address City/[facility] de Phone Number [facility] [address] Department [place] [address] * (ABNORMAL) CBC with auto differential (05/09/2025 6:18 AM CDT) [facility] WBC 7.92 3.80 - 9.90 K/cumm Hgb 11.4(L) 11.9 - 15.5 g/dL [facility] Hct 35.5(L) 35.6 - 45.5 % [facility] Plt 198 150 - 400 K/cumm [facility] MPV 11.7 9.1 - 12.3 fL [facility] RBC 3.92 3.90 - 5.20 M/cumm [facility] MCV 90.6 81.3 - 96.4 fL [facility] MCH 29.1 27.1 - 33.3 pg [facility] MCHC 32.1(L) 32.3 - 35.7 g/dL [facility] RDW CV 16.7(H) 11.1 - 14.9 % [facility] RDW SD 53.6(H) 35.7 - 48.1 fL [facility] NRBC abs 0.00 0.00 - 0.01 K/cumm [facility] Blood 05/09/2025 6:18 AM CDT 05/09/2025 6:18 AM CDT Fifi Arrington MD LAB BLOOD ORDERABLES Final Resu lt Performing Organization Address [facility] Co de Phone Number [facility] [address] [place] [address] * POCT glucose (05/09/2025 6:11 AM CDT) [facility] Glucose, POC 116 70 - 199 mg/dL Comment: For Glucose values <35 mg/dl when Hematocrit is >60 mg/dl,the test may not accurately detect significant hypoglycemia,and testing in the Laboratory should be considered if clinically indicated. Blood 05/09/2025 6:11 AM CDT 05/09/2025 6:11 AM CDT Obed Goyal DO LAB POCT ORDERABLES - DEVICE Final Result Performing Organization Address [facility] Co de Phone Number [facility] [address] Department [employer] [place] [address] * eGFR (05/09/2025 3:45 AM CDT) eGFR [...] ORDERABLES Final Resu lt Performing Organization Address City/[facility]/ZIP Co de Phone Number [facility] [address] Department of [employer] [place], [place] [id number] * Magnesium (05/09/2025 3:45 AM CDT) Magnesium 1.7 1.4 - 2.5 mg/dL Blood 05/09/2025 3:45 AM CDT 05/09/2025 3:48 AM CDT us La Maldonado MD LAB BLOOD ORDERABLES Final Res ult [facility] [address] Department [place] [address] * (ABNORMAL) Comprehensive metabolic panel (05/09/2025 3:45 AM CDT) Sodium 138 135 - 145 mmol/L Potassium, pl 3.1(L) 3.3 - 4.9 mmol/L [facility] Chloride 99 97 - 110 mmol/L [facility] CO2 27 22 - 32 mmol/L [facility] Anion gap 12 2 - 15 mmol/L [facility] BUN 17 6 - 25 mg/dL [facility] Creatinine 0.85 0.60 - 1.10 mg/dL [facility] Glucose 140 70 - 199 mg/dL [facility] Comment: Interpretive Data Fasting glucose >/= [...] 2022. Calcium 9.1 8.5 - 10.3 mg/dL [facility] Bilirubin, total 0.5 0.1 - 1.2 mg/dL [facility] Protein, pl 5.1(L) 6.5 - 8.5 g/dL [facility] Albumin 3.2(L) 3.5 - 5.0 g/dL [facility] Alk phos 154(H) 40 - 130 Units/L [facility] ALT 30 7 - 45 Units/L [facility] AST 31 10 - 45 Units/L [facility] Blood 05/09/2025 3:45 AM CDT 05/09/2025 3:48 AM CDT Fifi Arrington MD LAB BLOOD ORDERABLES Final Resu lt Performing Organization Address [facility] de Phone Number [facility] [address] [facility] [place] [address] * POCT glucose (05/09/2025 12:12 AM CDT) [facility] Signature Glucose, POC 185 70 - 199 mg/dL Comment: For Glucose values <35 mg/dl when Hematocrit is >60 mg/dl,the test may not accurately detect significant hypoglycemia,and testing in the Laboratory should be considered if clinically indicated. Blood 05/09/2025 12:1 2 AM CDT 05/09/2025 12:12 AM CDT Result [facility] Fifi Arrington MD LAB POCT ORDERABLES - DEVICE Fi nal Result Performing Organization Address [facility] Phone Number [facility] [address] [place] [address] * Neuro CT Outside Reference (05/07/2025 12:00 AM CDT) Narrative [facility]PACS[facility]OUTSIDE_FILM[facility] - 06/14/2025 2:09 PM CDT This order has been auto-finalized and does not contain a result. us Provider Transcribed Order IMG CT PROCEDURES Fin al Result Performing Organization Address [facility] de Phone Number [email or web address]_FILM_[facility] * XR Outside Reference (05/07/2025 12:00 AM CDT) Narrative [facility]OUTS[facility] - 06/14/2025 2:09 PM CDT This order has been auto-finalized and does not contain a result. us Provider Transcribed Order IMG XR PROCEDURES Fin al Result Performing Organization Address [facility] de Phone Number [email or web address]_[email or web address] * Neuro MR Outside Reference (05/02/2025 12:10 AM CDT) Narrative RAD_PACS_OUTSIDE_FILM_[facility] - 06/14/2025 2:10 PM CDT This order has been auto-finalized and does not contain a result. us Provider Transcribed Order IMG MRI PROCEDURES Fi nal Result Performing Organization Address [facility] de Phone Number [email or web address]_[email or web address] * Neuro MR Outside Reference (05/02/2025 12:05 AM CDT) Narrative [facility]_PACS_OUTSIDE_FILM_[facility] - 06/14/2025 2:10 PM CDT This order has been auto-finalized and does not contain a result. us Provider Transcribed Order IMG MRI PROCEDURES Fi nal Result Performing Organization Address [facility] de Phone Number [email or web address]_[facility] * Neuro MR Outside Reference (05/02/2025 12:00 AM CDT) Narrative RAD_PACS_OUTSIDE_FILM_[facility] - 06/14/2025 2:10 PM CDT This order has been auto-finalized and does not contain a result. us Provider Transcribed Order IMG MRI PROCEDURES Fi nal Result Performing Organization Address [facility] de Phone Number [email or web address]_[facility] * Neuro MR Outside Reference (04/30/2025 12:00 AM CDT) Narrative RAD_PACS_OUTSIDE_FILM_[facility] - 06/14/2025 2:11 PM CDT This order has been auto-finalized and does not contain a result. us Provider Transcribed Order IMG MRI PROCEDURES Fi nal Result Performing Organization Address [facility] de Phone Number [email or web address]_FILM_[facility] * (ABNORMAL) Serum lipid panel (04/10/2016 10:35 PM CDT) Cholesterol 125 30 - 200 mg/dl CDR [...] Serum 04/10/2016 10:3 5 PM CDT [facility] LAB BLOOD ORDERABLES Final Re sult CDR HISTORICAL RESULTS from Last 3 Months or Most Recently Relevant to Health Maintenance Insurance [employer] CHOICE PPO [facility] [employer] CHOICE PPO Advance Directives For more information, please contact: [phone] * Full Code (Latest Code Status on File) Date Activated Date Inactivated Comments 06/27/2025 2:31 AM 07/04/2025 7:42 PM * Full Code Date Activated Date Inactivated Comments 06/07/2025 3:52 PM 06/27/2025 2:31 AM * Full Code Date Activated Date Inactivated Comments 05/08/2025 8:28 PM 05/10/2025 7:50 PM Care Teams [employer] Relationship Specialty Start Date End Date Parminder Rojas MD PCP - General 01/19/14 Yannick Guevara MD [id number] [place] [address] Surgeon Colon and Rectal Surgery 02/07/21 Ayde Peña MD [address] [place] [id number] [place] [address] Referring Physician Family Medicine 02/07/21 [place] [id number] [address] Surgeon Neurosurgery 07/01/25
[2025-07-07 06:07] LABS: Hematocrit 31.4 % (37.0-47.0); Hemoglobin 9.5 g/dL (12.0-15.0); Immature Granulocyte Percent A 0.9 % (0-0.5); Lymphocytes Absolute Auto 1.20 K/mm3 (0.9-3.2); Mean Corpuscular HGB Conc 30.3 g/dl (32-36); Mean Corpuscular Hemoglobin 28.4 pg (26-34); Mean Corpuscular Volume 93.7 fl (80-100); Nucleated Red Blood Cells Absolute Auto 0.000 K/mm3 (0.0-0.012); Nucleated Red Blood Cells Perc 0.0 % (0.0-0.2); Platelet Count Result 266 k/mm3 (150-375); Red Blood Count 3.35 M/mm3 (4.2-5.4); White Blood Count 8.5 K/mm3 (4.5-10.0)
--- NOTE | 2025-07-07 06:15 | ED.GENADULT ---
HPI - General Adult General Chief complaint: Fall <Jarrod Lopez MD - Last Filed: 07/07/25 06:26> Stated complaint: GLF W/ PREVIOUS CERVICAL FRACTURE <Jarrod Lopez MD - Last Filed: 07/07/25 06:26> Time Seen by Provider: 07/07/25 03:34 <Jarrod Lopez MD - Last Filed: 07/07/25 06:26> History of Present Illness HPI narrative: This is a 75-year-old female with dementia and a recent cervical fractures presenting after an unwitnessed fall. She was [facility]. She does not remember the events of the fall. She is complaining to pain of her left forearm where she has a skin tear. She denies any other complaints. She is on blood thinners. <Jarrod Lopez MD - Last Filed: 07/07/25 06:26> Related Data Home medications: Home Medications ?Medication ?Instructions ?Recorded ?Confirmed ?Last Taken ?Type leflunomide 20 mg tablet 20 mg PO HS 07/04/19 04/27/25 04/26/25 History omega 2-czw-lfz-fish oil 100 2 cap PO .q12hr 06/12/23 04/27/25 04/26/25 History mg-160 mg-1,000 mg capsule (Fish Oil) sotalol 80 mg tablet 80 mg PO Q12H 04/27/25 04/27/25 04/26/25 History <Jarrod Lopez MD - Last Filed: 07/07/25 06:26> Allergies/adverse reactions: Allergies Allergy/AdvReac Type Severity Reaction Status Date / Time ciprofloxacin Allergy Mild Unknown Verified 07/07/25 01:27 codeine Allergy Mild Vomiting Verified 07/07/25 01:27 levofloxacin Allergy Unknown Unknown Verified 07/07/25 01:27 lisinopril Allergy Unknown Unknown Verified 07/07/25 01:27 amoxicillin (From Augmentin) AdvReac Severe Confusion Verified 07/07/25 01:27 clavulanic acid (From AdvReac Severe Confusion Verified 07/07/25 01:27 Augmentin) tramadol AdvReac Mild Vomiting Verified 07/07/25 01:27 <Jarrod Lopez MD - Last Filed: 07/07/25 06:26> [facility] Past Medical History Medical History: Medical History Preop cardiovascular exam Chronic obstructive pulmonary disease, unspecified Hard of hearing Eustachian tube dysfunction Cubital tunnel syndrome on right Pulmonary hypertension Chronic idiopathic myocarditis Restless leg syndrome 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 Chronic respiratory failure with hypoxia, on home oxygen therapy Transient ischemic attack Chronic hyponatremia Venous insufficiency Iron deficiency anemia Polymyalgia rheumatica Small vessel disease, cerebrovascular Chronic anticoagulation Paroxysmal atrial fibrillation Coronary artery disease Microscopic colitis Chronic diarrhea Exocrine pancreatic insufficiency COVID-19 Cervical arthritis Pneumonia Dyslipidemia Essential hypertension Gastro-esophageal reflux disease without esophagitis Multifocal atrial tachycardia <Jarrod Lopez MD - Last Filed: 07/07/25 06:26> Surgical History Surgical History: Surgical History History of heart artery stent History of cardiac catheterization History of bilateral knee replacement History of bilateral carpal tunnel release History of colonoscopy with polypectomy History of coronary artery bypass graft x 2 (12/2013) History of Achilles tendon repair History of spinal surgery Lumbar micro discectomy infusion. History of mitral valve repair History of shoulder surgery History of cataract extraction Left History of hand surgery trigger finger, thumb <Jarrod Lopez MD - Last Filed: 07/07/25 06:26> Family History Family History: Family History Mother Cerebrovascular accident Family history of diabetes mellitus in first degree relative Family history of coronary artery disease Acute myocardial infarction Diabetes mellitus Father Carcinoma of colon Family history of lung cancer Family history of malignant neoplasm of esophagus Sibling Liver disease Liver transplant recipient Other Family history of malignant neoplasm of brain Family history of malignant neoplasm of stomach <Jarrod Lopez MD - Last Filed: 07/07/25 06:26> Social History Social History: Social History Social History: Surrogate medical decision maker: Filippo Clifford, spouse. Code status: Full code. Second hand tobacco smoke exposure: Yes Alcohol intake: current Drinks per week: 1 Alcohol use details: Rare alcohol use in moderation. Substance use: never Substance use type: does not use Do You Feel Safe in your Home?: Yes Lack of Transportation: No Lack of Food: Never True Current Housing: I Have Housing Concerned About Future Housing: No Difficulty Paying Gas/Electric Bills: No Difficulty Paying for Meds: No Currently Unemployed: No Education: High School Diploma/GED Difficulty w/ Childcare or Family Care: No Living arrangements: with family Additional living arrangements comments: Lives in [facility]. Occupation/Education: retired Additional occupation/education comments: Worked in [employer]. Spiritual care concerns: No <Jarrod Lopez MD - Last Filed: 07/07/25 06:26> Exam Narrative: APPEARANCE: Patient appears chronically unwell Head: atraumatic. EYES: EOMI, NOSE: Atraumatic NECK: Levant collar in place RESPIRATORY: No increased rate of breathing clear to auscultation CARDIOVASCULAR: RRR, no peripheral edema ABDOMINAL: Non-distended soft nontender MUSCULOSKELETAl: Head to toe trauma exam performed with no areas of obvious injury or deformity. No reported tenderness NEURO: Alert. Moving for 4 extremities to command, SKIN:: Skin wound to left forearm PSYCHIATRIC: Normal affect <Jarrod Lopez MD - Last Filed: 07/07/25 06:26> Course Course Emergency Course: Patient signed out to me pending CT chest abdomen pelvis interpretation which does result as below. Sign-out had noted that he may be reasonable to send patient back to the [facility] on antibiotic. She had already received ceftriaxone for her urinary tract infection. I added a Zithromax to cover for atypicals. CT scan does demonstrate pneumonia and although she is on her baseline oxygen requirement, her CURB-65 score is 3 points (age, BUN, occasional hypotension) which carries 14% mortality rate. She is alert and oriented x4 although somwhat somnolent and given this, I believe patient would benefit from observation admission for continued monitoring. Discussed with lead generation specialist hospitalist Dr Vaaldez who accepts admission conditionally pending review of her CT C spine images by Neurosurgery at [facility]. Timeline of when patient had surgical intervention is unclear as she had been seen in this emergency department in May and had followed with neurosurgery at that time but it did not appear she had undergone surgical procedure. She is currently wearing a postoperative collar. She is neurovascularly intact and able to demonstrate movement in her bilateral upper extremities. Images were pushed to [facility] and I spoke with NSGY Dr Sainz at [facility] at 08:05 who confirms after reviewing the images and the timeline of her surgery (just a few weeks ago) that this epidural fluid collection is common and expected and very unlikely to be pathologic/represent abscess. He notes that he will try to have someone from his NSGY team come see the patient while she is admitted here if possible (believes that there is a physician/TIN WHIZ MACHINE OPERATOR on staff with privileges at both), though can not guarantee this. <Michelle Hugo MD - Last Filed: 07/07/25 08:08> Vital Signs Vital signs: Vital Signs Temperature 98 F 07/07/25 01:16 Pulse Rate 86 07/07/25 01:16 Respiratory Rate 26 H 07/07/25 01:16 Blood Pressure 98/53 L 07/07/25 01:16 Pulse Oximetry 100 07/07/25 01:16 Oxygen Delivery Room Air 07/07/25 01:16 Temperature 98 F 07/07/25 01:16 Pulse Rate 85 07/07/25 07:30 Respiratory Rate 21 H 07/07/25 07:30 Blood Pressure 127/67 07/07/25 07:30 Pulse Oximetry 96 07/07/25 07:30 Oxygen Delivery Room Air 07/07/25 01:16 <Jarrod Lopez MD - Last Filed: 07/07/25 06:26> Vital Signs Temperature 98 F 07/07/25 01:16 Pulse Rate 86 07/07/25 01:16 Respiratory Rate 26 H 07/07/25 01:16 Blood Pressure 98/53 L 07/07/25 01:16 Pulse Oximetry 100 07/07/25 01:16 Oxygen Delivery Room Air 07/07/25 01:16 Temperature 98 F 07/07/25 01:16 Pulse Rate 85 07/07/25 07:30 Respiratory Rate 21 H 07/07/25 07:30 Blood Pressure 127/67 07/07/25 07:30 Pulse Oximetry 96 07/07/25 07:30 Oxygen Delivery Room Air 07/07/25 01:16 <Michelle Hugo MD - Last Filed: 07/07/25 08:08> Medical Decision Making MDM Narrative Medical decision making narrative: -Course: 75-year-old female presenting after being found down in her room. Patient has dementia and is a poor historian. She cannot remember the events fall. Initially just a CT of the head and C-spine were obtained which were negative for acute injuries. However the CT C-spine showed pleural effusion and possible infiltrates in the lungs. CT chest abdomen pelvis and lab work were then ordered for further evaluation. Patient signed out to the oncoming physician pending completion of her workup. -DDX includes but is not limited to: C-spine injury, intracranial hemorrhage, sepsis UTI dehydration <Jarrod Lopez MD - Last Filed: 07/07/25 06:26> Vital Signs Vital Signs: Vital Signs Temperature 98 F 07/07/25 01:16 Pulse Rate 86 07/07/25 01:16 Respiratory Rate 26 H 07/07/25 01:16 Blood Pressure 98/53 L 07/07/25 01:16 Pulse Oximetry 100 07/07/25 01:16 Oxygen Delivery Room Air 07/07/25 01:16 Temperature 98 F 07/07/25 01:16 Pulse Rate 85 07/07/25 07:30 Respiratory Rate 21 H 07/07/25 07:30 Blood Pressure 127/67 07/07/25 07:30 Pulse Oximetry 96 07/07/25 07:30 Oxygen Delivery Room Air 07/07/25 01:16 <Jarrod Lopez MD - Last Filed: 07/07/25 06:26> Vital Signs Temperature 98 F 07/07/25 01:16 Pulse Rate 86 07/07/25 01:16 Respiratory Rate 26 H 07/07/25 01:16 Blood Pressure 98/53 L 07/07/25 01:16 Pulse Oximetry 100 07/07/25 01:16 Oxygen Delivery Room Air 07/07/25 01:16 Temperature 98 F 07/07/25 01:16 Pulse Rate 85 07/07/25 07:30 Respiratory Rate 21 H 07/07/25 07:30 Blood Pressure 127/67 07/07/25 07:30 Pulse Oximetry 96 07/07/25 07:30 Oxygen Delivery Room Air 07/07/25 01:16 <Michelle Hugo MD - Last Filed: 07/07/25 08:08> Lab Data Result diagrams: 07/07/25 05:48 07/07/25 05:48 <Jarrod Lopez MD - Last Filed: 07/07/25 06:26> Labs: Lab Results 07/07/25 07/07/25 Range/Units 05:48 05:57 WBC 8.5 (4.5-10.0) K/mm3 RBC 3.35 L (4.2-5.4) M/mm3 Hgb 9.5 L (12.0-15.0) g/dL Hct 31.4 L (37.0-47.0) % MCV 93.7 (80-100) fl MCH 28.4 (26-34) pg MCHC 30.3 L (32-36) g/dl RDW 19.8 H (11.5-14.5) % Plt Count 266 (150-375) k/mm3 MPV 11.1 H (7.4-10.4) fl Immature Gran % (Auto) 0.9 H (0-0.5) % Neut % (Auto) 72.1 (45.5-73.1) % Lymph % (Auto) 14.1 L (18.3-44.2) % Iron % (Auto) 9.2 H (2.6-8.5) % Eos % (Auto) 3.3 (0-4.4) % Baso % (Auto) 0.4 (0.2-1.2) % Lymph # (Auto) 1.20 (0.9-3.2) K/mm3 Iron # (Auto) 0.8 H (0.1-0.6) K/mm3 Eos # (Auto) 0.3 (0-0.3) K/mm3 Baso # (Auto) 0.0 (0.0-0.1) K/mm3 Abs Immat Gran (auto) 0.08 H (0.00-0.031) K/mm3 Absolute Neuts (auto) 6.2 (1.3-6.7) K/mm3 Absolute Nucleated RBC 0.000 (0.0-0.012) K/mm3 Nucleated RBC % 0.0 (0.0-0.2) % Sodium 132 L (137-145) mmol/L Potassium 3.2 L (3.4-5.0) mmol/L Chloride 92 L (98-107) mmol/L Carbon Dioxide 37 H (22-30) mmol/L Anion Gap 3 L (4-12) mmol/L BUN 25 H (7-17) mg/dL Creatinine 0.86 (0.7-1.0) mg/dL Estim Creat Clear Calc 47 ml/min Estimated GFR > 60 (59 - ) Glucose 128 H (65-110) mg/dL Calcium 8.4 (8.4-10.2) mg/dL Total Bilirubin 0.7 (0.2-1.3) mg/dL AST 26 (14-36) U/L ALT 18 (6-35) U/L Alkaline Phosphatase 136 H (38-126) U/L Total Protein 6.0 L (6.3-8.2) g/dL Albumin 3.1 L (3.5-5.1) g/dL Urine Color Yellow (Yellow) Urine Appearance Clear (Clear) Urine pH 7.0 (5.0-9.0) Ur Specific [place] 1.009 (1.001-1.035) Urine Protein 1+ H (Negative) mg/dL Urine Glucose (UA) Negative (Negative) mg/dL Urine Ketones Negative (Negative) mg/dL Ur Blood (Man) Negative (Negative) Urine Nitrate Positive H (Negative) Urine Bilirubin Negative (Negative) Urine Urobilinogen 0.2 (<2.0) mg/dL Add Ur Microanalysis Reviewed Leukocyte Esterase Rfl 3+ H (Negative) CHANO/UL Urine RBC 0-2 (0-2) /hpf Urine WBC >100 H (0-3) /hpf Ur Squamous Epith Cells None seen (Few) /hpf Urine Bacteria 4+ H /hpf Urine Casts 6-10 Influenza A (RT-PCR) Negative (Negative) Influenza B (RT-PCR) Negative (Negative) RSV (RT-PCR) Negative (Negative) SARS-CoV-2 RNA (RT-PCR) Negative (Negative) <Jarrod Lopez MD - Last Filed: 07/07/25 06:26> Lab Results 07/07/25 07/07/25 Range/Units 05:48 05:57 WBC 8.5 (4.5-10.0) K/mm3 RBC 3.35 L (4.2-5.4) M/mm3 Hgb 9.5 L (12.0-15.0) g/dL Hct 31.4 L (37.0-47.0) % MCV 93.7 (80-100) fl MCH 28.4 (26-34) pg MCHC 30.3 L (32-36) g/dl RDW 19.8 H (11.5-14.5) % Plt Count 266 (150-375) k/mm3 MPV 11.1 H (7.4-10.4) fl Immature Gran % (Auto) 0.9 H (0-0.5) % Neut % (Auto) 72.1 (45.5-73.1) % Lymph % (Auto) 14.1 L (18.3-44.2) % Iron % (Auto) 9.2 H (2.6-8.5) % Eos % (Auto) 3.3 (0-4.4) % Baso % (Auto) 0.4 (0.2-1.2) % Lymph # (Auto) 1.20 (0.9-3.2) K/mm3 Iron # (Auto) 0.8 H (0.1-0.6) K/mm3 Eos # (Auto) 0.3 (0-0.3) K/mm3 Baso # (Auto) 0.0 (0.0-0.1) K/mm3 Abs Immat Gran (auto) 0.08 H (0.00-0.031) K/mm3 Absolute Neuts (auto) 6.2 (1.3-6.7) K/mm3 Absolute Nucleated RBC 0.000 (0.0-0.012) K/mm3 Nucleated RBC % 0.0 (0.0-0.2) % Sodium 132 L (137-145) mmol/L Potassium 3.2 L (3.4-5.0) mmol/L Chloride 92 L (98-107) mmol/L Carbon Dioxide 37 H (22-30) mmol/L Anion Gap 3 L (4-12) mmol/L BUN 25 H (7-17) mg/dL Creatinine 0.86 (0.7-1.0) mg/dL Estim Creat Clear Calc 47 ml/min Estimated GFR > 60 (59 - ) Glucose 128 H (65-110) mg/dL Calcium 8.4 (8.4-10.2) mg/dL Total Bilirubin 0.7 (0.2-1.3) mg/dL AST 26 (14-36) U/L ALT 18 (6-35) U/L Alkaline Phosphatase 136 H (38-126) U/L Total Protein 6.0 L (6.3-8.2) g/dL Albumin 3.1 L (3.5-5.1) g/dL Urine Color Yellow (Yellow) Urine Appearance Clear (Clear) Urine pH 7.0 (5.0-9.0) Ur Specific [place] 1.009 (1.001-1.035) Urine Protein 1+ H (Negative) mg/dL Urine Glucose (UA) Negative (Negative) mg/dL Urine Ketones Negative (Negative) mg/dL Ur Blood (Man) Negative (Negative) Urine Nitrate Positive H (Negative) Urine Bilirubin Negative (Negative) Urine Urobilinogen 0.2 (<2.0) mg/dL Add Ur Microanalysis Reviewed Leukocyte Esterase Rfl 3+ H (Negative) CHANO/UL Urine RBC 0-2 (0-2) /hpf Urine WBC >100 H (0-3) /hpf Ur Squamous Epith Cells None seen (Few) /hpf Urine Bacteria 4+ H /hpf Urine Casts 6-10 Influenza A (RT-PCR) Negative (Negative) Influenza B (RT-PCR) Negative (Negative) RSV (RT-PCR) Negative (Negative) SARS-CoV-2 RNA (RT-PCR) Negative (Negative) <Michelle Hugo MD - Last Filed: 07/07/25 08:08> Imaging Data Radiologist's impression: Impressions Cervical Spine CT 07/07/25 06:30 IMPRESSION: HEAD: 1. No acute intracranial findings. 2. Bilateral mastoiditis. C-SPINE: 1. No acute fracture. 2. Ill-defined fluid and postoperative changes posterior to upper cervical spine. 3. Extensive bilateral upper lung airspace disease, and left pleural effusion. Head CT 07/07/25 06:30 IMPRESSION: HEAD: 1. No acute intracranial findings. 2. Bilateral mastoiditis. C-SPINE: 1. No acute fracture. 2. Ill-defined fluid and postoperative changes posterior to upper cervical spine. 3. Extensive bilateral upper lung airspace disease, and left pleural effusion. Chest/Abdomen/Pelvis CT 07/07/25 07:13 IMPRESSION: 1. Diffuse lung disease, likely a combination of pneumonia in the upper lobes and left lower lobe and mild pulmonary edema. 2. Small pleural effusions. 3. Colitis involving the rectosigmoid. <Michelle Hugo MD - Last Filed: 07/07/25 08:08> Discharge Plan Discharge Clinical Impression: Fall, UTI (urinary tract infection), Pneumonia, Pleural effusion, Colitis <Jarrod Lopez MD - Last Filed: 07/07/25 06:26> Patient Disposition: Still a Patient <Jarrod Lopez MD - Last Filed: 07/07/25 06:26> Condition: Stable <Jarrod Lopez MD - Last Filed: 07/07/25 06:26> Instructions: Antibiotic Form, Fall Prevention (ED) <Jarrod Lopez MD - Last Filed: 07/07/25 06:26> Additional Instructions: Laura was seen after a fall. Please follow-up with your primary care physician for further management. If she develops any new worsening symptoms return to the ED for re-evaluation. <Jarrod Lopez MD - Last Filed: 07/07/25 06:26> Patient Language: Croatian <Jarrod Lopez MD - Last Filed: 07/07/25 06:26> Prescriptions: No Action leflunomide 20 mg tablet 20 mg PO HS Fish Oil 100-160-1,000 mg capsule 2 cap PO .q12hr albuterol sulfate 90 mcg/actuation HFA aerosol inhaler 2 inh inhalation Q6H PRN (Reason: shortness of breath or wheezing) Qty: 8.5 2RF Rx Instructions: If tachycardia, use with caution. Repatha SureClick 140 mg/mL pen injector 140 mg subcut .every 2 weeks Qty: 2 11RF mirtazapine 7.5 mg tablet 7.5 mg PO QHS Qty: 30 0RF sotalol 80 mg tablet 80 mg PO Q12H arformoterol 15 mcg/2 mL solution for nebulization See Rx Instructions .ROUTE .COMPLEX Qty: 30 11RF Dose Instruction: USE 1 VIAL IN NEBULIZER DAILY Rx Instructions: USE 1 VIAL IN NEBULIZER DAILY metoprolol tartrate 25 mg tablet See Rx Instructions .ROUTE .COMPLEX Qty: 180 2RF Dose Instruction: TAKE 1 TABLET BY MOUTH TWICE A DAY Rx Instructions: TAKE 1 TABLET BY MOUTH TWICE A DAY Xarelto 20 mg tablet See Rx Instructions .ROUTE .COMPLEX Qty: 30 5RF Dose Instruction: TAKE 1 TABLET BY MOUTH EVERY DAY MUST ADMINISTER WITH EVENING MEAL Rx Instructions: TAKE 1 TABLET BY MOUTH EVERY DAY MUST ADMINISTER WITH EVENING MEAL furosemide 40 mg tablet See Rx Instructions .ROUTE .COMPLEX Qty: 90 2RF Dose Instruction: TAKE 1 TABLET BY MOUTH EVERY DAY Rx Instructions: TAKE 1 TABLET BY MOUTH EVERY DAY pravastatin 10 mg tablet See Rx Instructions .ROUTE .COMPLEX Qty: 90 2RF Dose Instruction: TAKE 1 TABLET BY MOUTH EVERY DAY Rx Instructions: TAKE 1 TABLET BY MOUTH EVERY DAY tirzepatide 5 mg/0.5 mL pen injector 5 mg subcut WEEKLY Qty: 2 2RF Rx Instructions: thursday pramipexole 0.5 mg tablet 0.5 mg PO HS Qty: 90 1RF pantoprazole 40 mg tablet,delayed release (DR/EC) 40 mg PO QAM Qty: 90 3RF Pokonza 10 mEq packet 10 meq PO DAILY Qty: 30 0RF diphenoxylate-atropine [Lomotil] 2.5-0.025 mg tablet 1 tablet PO TID PRN (Reason: diarrhea) Qty: 20 0RF metformin 500 mg tablet extended release 24 hr 1,000 mg PO QPM Qty: 90 0RF Rx Instructions: afternoon <Jarrod Lopez MD - Last Filed: 07/07/25 06:26> Follow-up/Referrals: Parminder Rojas MD [Primary Care Provider, Family Practice] <Jarrod Lopez MD - Last Filed: 07/07/25 06:26> Time of Disposition: 08:08 <Jarrod Lopez MD - Last Filed: 07/07/25 06:26> 08:08 <Michelle Hugo MD - Last Filed: 07/07/25 08:08>
[2025-07-07 06:29] LABS: Alanine Aminotransferase 18 U/L (6-35); Albumin Level 3.1 g/dL (3.5-5.1); Alkaline Phosphatase 136 U/L (38-126); Anion Gap 3 mmol/L (4-12); Aspartate Amino Transferase 26 U/L (14-36); Bilirubin,Total 0.7 mg/dL (0.2-1.3); Blood Urea Nitrogen 25 mg/dL (7-17); Calcium 8.4 mg/dL (8.4-10.2); Carbon Dioxide 37 mmol/L (22-30); Chloride 92 mmol/L (98-107); Estimated CRCL calculation 47 ml/min; Estimated Glomerular Filt Rate > 60; Glucose 128 mg/dL (65-110); Potassium 3.2 mmol/L (3.4-5.0); Sodium 132 mmol/L (137-145); Total Protein 6.0 g/dL (6.3-8.2)
[2025-07-07 06:37] LABS: Add Urine Microscopic? YES; Appearance Urine Clear (Clear); Glucose Urine UA Negative (Negative); Leukocyte Esterase Ur 3+ LEU/UL (Negative); Need Manual Microscopic Reviewed; Nitrate Urine Positive (Negative); Specific Grav Ur 1.009 (1.001-1.035)
[2025-07-07 06:44] LABS: Influenza A QL RT-PCR Negative (Negative); Influenza B QL RT-PCR Negative (Negative); RSV RNA, RT-PCR Negative (Negative); SARS-CoV-2 RNA PCR Negative (Negative)
[2025-07-07] MEDS: cefTRIAXone 1 GM in SODIUM CHLORIDE 0.9% IV 50 ML 100 ML IVPB (06:58)
[2025-07-07] MEDS: AZITHROMYCIN 500 MG TABLET PO (07:48)
[2025-07-07] MEDS: DICYCLOMINE HCL 10 MG CAPSULE PO (08:56)
--- NOTE | 2025-07-07 10:22 | WNDPHOTO ---
PHOTO ONLY - See Nursing Notes and/ or assessments for documentation.
--- NOTE | 2025-07-07 12:33 | P.HP_ITS ---
H&P: HPI History of Present Illness Date/Time: 07/07/25 12:33 Chief Complaint: Fall Narrative: 75-year-old male cervical fracture status post surgery, diabetes, iron deficiency anemia, atrial fibrillation, CAD, hypertension and dyslipidemia presents the hospital after being found down at a long term. Patient had a recent fall where she had a cervical neck fracture and surgery at [facility]. She was discharged to the long term yesterday. HPI is limited because the patient has altered mental status. She has no complaints at this time. Lab work in the ED shows hemoglobin of 9.5, sodium of 132, potassium of 3.2, carbon dioxide 37, anion gap 3, BUN of 25, creatinine of 0.86, GFR of over 60, glucose 128, UA with positive nitrates 3+ leukocyte esterase and over 100 WBCs 4 +bacteria. Influenza A/B, RSV, COVID negative. Chest CTA shows pneumonia in upper lower lobes and pulmonary edema. Small pleural effusion and colitis involving the rectosigmoid. C-spine with no acute new fracture shows recent maximo dware, ill-defined fluid collection in postoperative changes. Neuro surgery over at [facility] states that they have a neurosurgeon his credentials here and can see her. They state that the fluid collection is normal after recent surgery. Patient has no neurological deficits. No need to transfer patient at this time. Head CT with no acute findings. Patient was started on azithromycin and Rocephin. Review of Systems Review of Systems: ROS unobtainable: Yes unobtainable due to mental status PMFSH Past Medical History Medical History Preop cardiovascular exam Chronic obstructive pulmonary disease, unspecified Hard of hearing Eustachian tube dysfunction Cubital tunnel syndrome on right Pulmonary hypertension Chronic idiopathic myocarditis Restless leg syndrome 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 Chronic respiratory failure with hypoxia, on home oxygen therapy Transient ischemic attack Chronic hyponatremia Venous insufficiency Iron deficiency anemia Polymyalgia rheumatica Small vessel disease, cerebrovascular Chronic anticoagulation Paroxysmal atrial fibrillation Coronary artery disease Microscopic colitis Chronic diarrhea Exocrine pancreatic insufficiency COVID-19 Cervical arthritis Pneumonia Dyslipidemia Essential hypertension Gastro-esophageal reflux disease without esophagitis Multifocal atrial tachycardia Surgical History Surgical History History of heart artery stent History of cardiac catheterization History of bilateral knee replacement History of bilateral carpal tunnel release History of colonoscopy with polypectomy History of coronary artery bypass graft x 2 (12/2013) History of Achilles tendon repair History of spinal surgery Lumbar micro discectomy infusion. History of mitral valve repair History of shoulder surgery History of cataract extraction Left History of hand surgery trigger finger, thumb Family History Family History Mother Cerebrovascular accident Family history of diabetes mellitus in first degree relative Family history of coronary artery disease Acute myocardial infarction Diabetes mellitus Father Carcinoma of colon Family history of lung cancer Family history of malignant neoplasm of esophagus Sibling Liver disease Liver transplant recipient Other Family history of malignant neoplasm of brain Family history of malignant neoplasm of stomach Social History Social History Social History: Surrogate medical decision maker: Filippo Clifford, spouse. Code status: Full code. Smoking status: Never smoker Second hand tobacco smoke exposure: Yes Alcohol intake: never Drinks per week: 1 Alcohol use details: Rare alcohol use in moderation. Substance use: never Substance use type: does not use Do You Feel Safe in your Home?: Yes Lack of Transportation: No Lack of Food: Never True Current Housing: I Have Housing Concerned About Future Housing: No Difficulty Paying Gas/Electric Bills: No Difficulty Paying for Meds: No Currently Unemployed: No Education: Decline to Answer Difficulty w/ Childcare or Family Care: No Living arrangements: with family Additional living arrangements comments: Lives in [facility]. Occupation/Education: retired Additional occupation/education comments: Worked in [employer]. Spiritual care concerns: No Meds Home Medications and Allergies Home Medications ?Medication ?Instructions ?Recorded ?Confirmed ?Type arformoterol 15 mcg/2 mL solution See Rx Instructions .Route 06/16/24 07/07/25 Rx for nebulization .COMPLEX #30 ea evolocumab 140 mg/mL subcutaneous 140 mg subcut .every 2 weeks #2 mL 11/10/24 07/07/25 Rx pen injector (Angelika Freeman) metoprolol tartrate 25 mg tablet See Rx Instructions . Route 01/05/25 07/07/25 Rx .COMPLEX #180 tabs rivaroxaban 20 mg tablet (Xarelto) See Rx Instructions .Route 01/10/25 07/07/25 Rx .COMPLEX #30 tabs furosemide 40 mg tablet See Rx Instructions .Route 0 02/13/25 07/07/25 Rx .COMPLEX #90 tabs pravastatin 10 mg tablet See Rx Instructions .Route 0 03/07/25 07/07/25 Rx .COMPLEX #90 tabs pramipexole 0.5 mg tablet 0.5 mg PO HS #90 tabs 07/07/25 Rx pantoprazole 40 mg tablet,delayed 40 mg PO QAM #90 tab s 04/02/25 07/07/25 Rx release sotalol 80 mg tablet 80 mg PO Q12H 04/27/2507/07 History metformin 500 mg tablet,extended 1,000 mg (2 x 500 mg) PO QPM #90 05/22/25 07/07/25 Rx release 24 hr tabs cholecalciferol (vitamin D3) 25 25 mcg PO DAILY 07/07/25 History mcg (1,000 unit) capsule (Vitamin D3) insulin glargine 100 unit/mL 10 unit subcut DAILY 03/2407/07/25 History subcutaneous solution (Lantus U-100 Insulin) insulin lispro 100 unit/mL 5 unit subcut TID 07/07/25 07/07/25 History subcutaneous solution (Humalog U-100 Insulin) losartan 25 mg tablet 25 mg PO DAILY 07/07/2503/24 History magnesium oxide 250 mg PO DAILY 07/07/2503/24 History methocarbamol 500 mg tablet 500 mg PO Q8H PRN muscle s pasms 07/07/25 07/07/25 History potassium chloride 10 mEq oral 20 meq PO DAILY 5 07/07/25 History packet (Pokonza) Allergies Allergy/AdvReac Type Severity Reaction Status Date / Time ciprofloxacin Allergy Mild Unknown Verified 07/07/25 13:13 codeine Allergy Mild Vomiting Verified 07/07/25 13:13 levofloxacin Allergy Unknown Unknown Verified 07/07/25 13:13 lisinopril Allergy Unknown Unknown Verified 07/07/25 13:13 amoxicillin (From Augmentin) AdvReac Severe Confusion Verified 07/07/25 13:13 clavulanic acid (From AdvReac Severe Confusion Verified 07/07/25 13:13 Augmentin) tramadol AdvReac Mild Vomiting Verified 07/07/25 13:13 Vital Signs Vital Signs - 24 hr 07/07/25 01:16 07/07/25 04:11 07/07/25 06:01 Temperature 98 F Pulse Rate 86 101 H 97 Respiratory Rate 26 H 16 Blood Pressure 98/53 L 188/56 H Pulse Oximetry 100 96 Oxygen Delivery Room Air 07/07/25 07:30 07/07/25 09:26 Temperature Pulse Rate 85 84 Respiratory Rate 21 H 22 H Blood Pressure 127/67 124/83 Pulse Oximetry 96 100 Oxygen Delivery Exam Narrative: General: Chronically ill-appearing HEENT: normocephalic, atraumatic. Mucous membranes moist. EOMI, PERRLA, bilateral sclera anicteric, no conjunctival injection. Neck supple without JVD, lymphadenopathy, or bruit. Cervical collar Respiratory: clear bilaterally. No rales/rhonic/wheezes. Cardiovascular: Regular rate and rhythm, normal S1-S2. No murmurs, rubs, or clicks. PMI is nondisplaced, capillary refill less than 3 second. Abdomen: Soft, round, no pulsatile masses, nondistended and nontender. No rebound, no guarding. Bowel sounds present to all four quadrants. No high pitch or tinkling sounds, resonant to percussion. Extremities: No cyanosis, clubbing, or edema present. Pulses are palpable 2/2. Active ROM to all four extremities. Neuro: Alert and orientated x 2. PERRLA. Cranial nerves 2-12 intact without focal deficit. Skin: Warm, dry, and intact, without rash, erythema, or lesion. Psych: pleasant, cooperative, normal speech, normal affect, no hallucinations, no dysarthia Generalized ecchymosis H&P: Results Labs Labs: Short CBC 07/07/25 Range/Units 05:48 WBC 8.5 (4.5-10.0) K/mm3 Hgb 9.5 L (12.0-15.0) g/dL Hct 31.4 L (37.0-47.0) % Plt Count 266 (150-375) k/mm3 BMP 07/07/25 05:48 Sodium 132 L Potassium 3.2 L Chloride 92 L Carbon Dioxide 37 H BUN 25 H Creatinine 0.86 Glucose 128 H Calcium 8.4 Liver Function 07/07/25 Range/Units 05:48 Total Bilirubin 0.7 (0.2-1.3) mg/dL AST 26 (14-36) U/L ALT 18 (6-35) U/L Alkaline Phosphatase 136 H (38-126) U/L Albumin 3.1 L (3.5-5.1) g/dL Urine 07/07/25 Range/Units 05:57 Urine Color Yellow (Yellow) Urine Appearance Clear (Clear) Urine pH 7.0 (5.0-9.0) Ur Specific [address] 1.009 (1.001-1.035) Urine Protein 1+ H (Negative) mg/dL Urine Glucose (UA) Negative (Negative) mg/dL Assessment and Plan Assessment and plan (1) Fall: Code(s): W19.XXXA - Unspecified fall, initial encounter Status: Acute Assessment and Plan: Likely due to UTI and weakness PT OT evaluate and treat Treat underlying infections Fall precautions (2) UTI (urinary tract infection): Code(s): N39.0 - Urinary tract infection, site not specified Status: Acute Assessment and Plan: IV Rocephin Culture and sensitive pending No IV fluids due to pulmonary edema and pleural effusion (3) Pulmonary edema: Code(s): J81.1 - Chronic pulmonary edema Status: Acute Assessment and Plan: Patient likely has a history of CHF as she is on Lasix at home IV Lasix x1 Daily weight Fluid restriction (4) Pleural effusion: Code(s): J90 - Pleural effusion, not elsewhere classified Status: Acute Assessment and Plan: A.m. chest x-ray Aggressively diuresing (5) Pneumonia: Code(s): J18.9 - Pneumonia, unspecified organism Status: Acute Assessment and Plan: IV Rocephin and azithromycin Guaifenesin Incentive spirometer (6) Cervical spine fracture: Code(s): S12.9XXA - Fracture of neck, unspecified, initial encounter Status: Acute Assessment and Plan: From previous fall status post surgery Continue C-collar MoBap neuro surgery has privileges here Fluid collections seen on CT however Neurosurgery states that this is normal postop, patient has no neuro deficits Noris has been on hold since 06/26 will need to confer with Neurosurgery that it can be restarted. 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: without petroleum terminal plant operator use Qualified Code(s): E11.21 - Type 2 diabetes mellitus with diabetic nephropathy Code(s): E11.21 - Type 2 diabetes mellitus with diabetic nephropathy Status: Acute Assessment and Plan: Leah MCKEON Low-dose insulin SSI and home Lantus (8) Colitis: Code(s): K52.9 - Noninfective gastroenteritis and colitis, unspecified Status: Acute Assessment and Plan: Chronic diarrhea Okay for Imodium (9) 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: Code(s): I25.719 - Atherosclerosis of autologous vein coronary artery bypass graft(s) with unspecified angina pectoris Status: Chronic Assessment and Plan: Continue losartan, metoprolol, pravastatin and s sotalol (10) Dyslipidemia: Code(s): E78.5 - Hyperlipidemia, unspecified Status: Acute Assessment and Plan: Continue statin (11) Pressure ulcer: Code(s): L89.90 - Pressure ulcer of unspecified site, unspecified stage Status: Acute Assessment and Plan: Stage III on coccyx and sacrum Wound care consulted No signs of infection Quality VTE Prophylaxis VTE prophylaxis: mechanical ordered and pharmacologic ordered Hospitalist MIPS Advance Care Plan I have confirmed that the patient's Advanced Care Plan is present, code status is documented, or surrogate decision maker is listed in patient medical record.: Yes Medication Reconciliation I have utilized all available resources to obtain, update and review the patients current medications (includes all prescriptions, OTC, herbals, cannabis, and nutritional supplements).: Yes
--- NOTE | 2025-07-07 12:51 | ADMGEN ---
This patient, Laura Clifford, was admitted to [facility] Surg Room 323-02. Patient/family oriented to hospital policies and general routines including ID bracelet, bed and alarms, visiting hours, pain management, procedures, bathroom and other care routines, personal items, smoking policy, room service/diet, and visiting hours. Information on how to activate the Rapid Response Team has been discussed. Patient/Family are encouraged to report perceived risks to care and to ask questions if they do not understand what they are told or what they should do.
[2025-07-07] MEDS: ACETAMINOPHEN 325 MG TABLET 650 MG PO (16:41)
[2025-07-07] MEDS: POTASSIUM CHLORIDE 20 MEQ PACKET (FOR LIQUID) 40 MEQ PO (16:42)
[2025-07-07] MEDS: FUROSEMIDE INJ 40 MG/4 ML VIAL IV PUSH (16:43)
[2025-07-07] MEDS: DOXYCYCLINE HYCLATE 100 MG TABLET PO (22:09)
[2025-07-07] MEDS: PRAMIPEXOLE 0.5 MG TABLET PO (22:10)
[2025-07-07] MEDS: guaiFENesin 12 HR 600 MG TABCR 1200 MG PO (22:10)
[2025-07-07] MEDS: SOTALOL HCL 80 MG TABLET PO (22:11)
[2025-07-07] MEDS: METOPROLOL TARTRATE 25 MG TABLET BY MOUTH (22:12)
[2025-07-08] VITALS (10 sets, daily range): BP systolic 99–107; BP diastolic 44–66; PULSE 71–112; RESP 16–18; TEMP 36–36.5; O2SAT 91–97
--- NOTE | 2025-07-08 03:13 | PC.NURSE ---
Pt noted to have oxygen laying on chest and complains of being SOB, nasal cannula reapplied and sats obtained, Pt sats noted to be 96% on 2L, pt educated on the importance of keeping oxygen on, Pt verbalized understanding.
[2025-07-08] MEDS: cefTRIAXone 1 GM in SODIUM CHLORIDE 0.9% IV 50 ML 100 ML IVPB (05:24)
--- NOTE | 2025-07-08 07:00 | PC.NURSE ---
THIS NURSE AND CHARGE NURSE AWARE OF WEIGHT DISCREPANCY.
[2025-07-08 07:17] LABS: Hematocrit 32.3 % (37.0-47.0); Hemoglobin 9.6 g/dL (12.0-15.0); Immature Granulocyte Percent A 1.1 % (0-0.5); Lymphocytes Absolute Auto 0.72 K/mm3 (0.9-3.2); Mean Corpuscular HGB Conc 29.7 g/dl (32-36); Mean Corpuscular Hemoglobin 28.2 pg (26-34); Mean Corpuscular Volume 94.7 fl (80-100); Nucleated Red Blood Cells Absolute Auto 0.000 K/mm3 (0.0-0.012); Nucleated Red Blood Cells Perc 0.0 % (0.0-0.2); Platelet Count Result 283 k/mm3 (150-375); Red Blood Count 3.41 M/mm3 (4.2-5.4); White Blood Count 8.5 K/mm3 (4.5-10.0)
[2025-07-08 07:38] LABS: Anion Gap 3 mmol/L (4-12); Blood Urea Nitrogen 20 mg/dL (7-17); Calcium 8.7 mg/dL (8.4-10.2); Carbon Dioxide 38 mmol/L (22-30); Chloride 93 mmol/L (98-107); Estimated CRCL calculation 54 ml/min; Estimated Glomerular Filt Rate > 60; Glucose 140 mg/dL (65-110); Potassium 3.3 mmol/L (3.4-5.0); Sodium 134 mmol/L (137-145)
[2025-07-08 08:19] LABS: Anisocytosis 1+; Hypochromasia 1+; Macrocytosis Occasional (NORMAL); Schistocytes None Seen
--- NOTE | 2025-07-08 09:15 | P.PNIM_ITS ---
Progress Note: A&P Assessment and Plan (1) Fall: Code(s): W19.XXXA - Unspecified fall, initial encounter Status: Acute Assessment and Plan: Likely due to UTI and weakness PT OT evaluate and treat Treat underlying infections Fall precautions (2) UTI (urinary tract infection): Code(s): N39.0 - Urinary tract infection, site not specified Status: Acute Assessment and Plan: IV Rocephin Culture and sensitive pending No IV fluids due to pulmonary edema and pleural effusion (3) Pulmonary edema: Code(s): J81.1 - Chronic pulmonary edema Status: Acute Assessment and Plan: Patient likely has a history of CHF as she is on Lasix at home IV Lasix x1 Daily weight Fluid restriction (4) Pleural effusion: Code(s): J90 - Pleural effusion, not elsewhere classified Status: Acute Assessment and Plan: A.m. chest x-ray Changed PO 40mg Lasix to IV Follow creatinine (5) Pneumonia: Code(s): J18.9 - Pneumonia, unspecified organism Status: Acute Assessment and Plan: IV Rocephin and azithromycin Guaifenesin Incentive spirometer (6) Cervical spine fracture: Code(s): S12.9XXA - Fracture of neck, unspecified, initial encounter Status: Acute Assessment and Plan: From previous fall status post surgery Continue C-collar MoBap neuro surgery has privileges here Fluid collections seen on CT however Neurosurgery states that this is normal postop, patient has no neuro deficits Sarai has been on hold since 06/26. Restart if ok with neurosurgery. (7) Type 2 diabetes mellitus with diabetic nephropathy: Qualifiers: Diabetes mellitus legal instruments examiner insulin use: without legal instruments examiner use Qualified Code(s): E11.21 - Type 2 diabetes mellitus with diabetic nephropathy Code(s): E11.21 - Type 2 diabetes mellitus with diabetic nephropathy Status: Acute Assessment and Plan: Accu-Cheks a.c. HS Low-dose insulin SSI and home Lantus 8 units daily (8) Colitis: Code(s): K52.9 - Noninfective gastroenteritis and colitis, unspecified Status: Acute Assessment and Plan: Chronic diarrhea. CT showed colitis involving the rectosigmoid. 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: Code(s): I25.719 - Atherosclerosis of autologous vein coronary artery bypass graft(s) with unspecified angina pectoris Status: Chronic Assessment and Plan: Continue losartan, metoprolol, pravastatin and s sotalol (10) Dyslipidemia: Code(s): E78.5 - Hyperlipidemia, unspecified Status: Acute Assessment and Plan: Continue statin (11) Pressure ulcer: Code(s): L89.90 - Pressure ulcer of unspecified site, unspecified stage Status: Acute Assessment and Plan: Stage III on coccyx and sacrum Wound care consulted No signs of infection Time Spent With Patient Time: 63 minutes Subjective Date/time seen: 07/08/25 09:15 Interval history: VSS. Fell out of bed at facility. Not sure if she passed out. Remembers being on the floor and staff calling her . Feels short of breath, on 2L. Patient reports chronic shortness of breath and has evidence of lung disease on CT, but CT also reporting pneumonia and possible mild pulmonary edema. LUE has been present and wound to left arm improving per discussion with her Has dysuria, unclear if related to the excoriation to buttocks. Diarrhea at today per staff, the patient does not remember that Potassium 3.3<3.4 after 40meq, give 40meq more Patient of Dr. Renae, neurosurgery 75-year-old female hx cervical fracture status post surgery, diabetes, iron deficiency anemia, atrial fibrillation, CAD, hypertension and dyslipidemia presents the hospital after being found down at a halfway. Patient had a recent fall where she had a cervical neck fracture and surgery at [facility]. She was discharged to the halfway one day prior to admission. Currently oriented, but forgetful. Review of Systems Review of Systems: 12 systems were reviewed and are negativ e except for as per HPI. ROS unobtainable: Yes unobtainable due to mental status Exam Narrative: General: Chronically ill-appearing HEENT: normocephalic, atraumatic. Mucous membranes moist. EOMI, PERRLA, bilateral sclera anicteric, no conjunctival injection. Neck supple without JVD, lymphadenopathy, or bruit. Cervical collar Respiratory: clear bilaterally. No rales/rhonic/wheezes. Cardiovascular: Regular rate and rhythm, normal S1-S2. No murmurs, rubs, or clicks. PMI is nondisplaced, capillary refill less than 3 second. Abdomen: Soft, round, no pulsatile masses, nondistended and nontender. No rebound, no guarding. Bowel sounds present to all four quadrants. No high pitch or tinkling sounds, resonant to percussion. Extremities: No cyanosis, clubbing. left upper extremity edema. Pulses are palpable 2/2. Active ROM to all four extremities. Neuro: Alert and orientated x 3, but forgetful. PERRLA. Cranial nerves 2-12 intact without focal deficit. Skin: Warm, dry, and intact, erythema, left arm eschar, buttocks escoriation Psych: pleasant, cooperative, normal speech, normal affect, no hallucinations, no dysarthia Generalized ecchymosis Objective Data Vital Signs Vital Signs: Vital Signs - 24 hr 07/07/25 09:26 07/07/25 14:00 07/07/25 15:05 Temperature 98.0 F Pulse Rate 84 83 Respiratory Rate 22 H 16 Blood Pressure 124/83 133/62 Pulse Oximetry 100 97 97 Oxygen Delivery Nasal Cannula Oxygen Flow Rate 2 07/07/25 20:00 07/07/25 22:00 07/07/25 22:11 Temperature 98.3 F Pulse Rate 92 Respiratory Rate 20 Blood Pressure 128/56 L Pulse Oximetry 94 94 94 Oxygen Delivery Nasal Cannula Nasal Cannula Oxygen Flow Rate 2 2 07/07/25 22:11 07/07/25 22:11 07/07/25 22:12 Temperature Pulse Rate 72 92 92 Respiratory Rate 15 Blood Pressure Pulse Oximetry Oxygen Delivery Oxygen Flow Rate 07/08/25 06:00 Temperature 96.8 F L Pulse Rate 81 Respiratory Rate 18 Blood Pressure 99/66 L Pulse Oximetry 97 Oxygen Delivery Oxygen Flow Rate Intake/Output Intake/Output: Intake & Output 07/05/25 07/06/25 07/07/25 07/08/25 23:59 23:59 23:59 23:59 Intake Total 170 240 Output Total 625 1000 Balance -455 -760 Meds/Results Medications: Active Medications Generic Name Dose Route Start Last Admin Trade Name Freq PRN Reason Stop Dose Admin Acetaminophen 650 mg 07/07/25 08:10 07/07/25 16:41 Acetaminophen 325 Mg Tablet PO 650 mg Q4H PRN Administration Mild Pain (1-3) or Fever Dextrose 12.5 gm 07/07/25 13:53 Dextrose 50% 25 Gm/50 Ml Syringe IV PUSH PRN PRN Hypoglycemia Protocol Doxycycline Hyclate 100 mg 07/07/25 21:00 07/07/25 22:09 Doxycycline Hyclate 100 Mg Tablet PO 100 mg Q12HR IVONE Administration Enoxaparin Sodium 40 mg 07/08/25 09:00 Enoxaparin 40 Mg/0.4 Ml Syringe SUB-Q DAILY IVONE Furosemide 40 mg 07/08/25 09:00 Furosemide Inj 40 Mg/4 Ml Vial IV PUSH DAILY IVONE Furosemide 0 mg 07/07/25 18:55 Furosemide 40 Mg Tablet BY MOUTH .COMPLEX IVONE Glucose 15 gm 07/07/25 13:53 Glucose Oral Gel 15 Gm Of Glucse In 37.5 Gm Tube PO PRN PRN Hypoglycemia Protocol Guaifenesin 1,200 mg 07/07/25 21:00 07/07/25 22:10 Guaifenesin 12 Hr 600 Mg Tabcr PO 1,200 mg Q12HR IVONE Administration Ceftriaxone Sodium 1 gm/ 50 mls @ 100 mls/hr 07/08/25 06:00 07/08/25 05:24 Sodium Chloride IVPB 100 mls/hr Q24H IVONE Administration Dextrose 1,000 mls @ 100 mls/hr 07/07/25 13:53 Dextrose 5% 1,000 Ml IVPB PRN PRN Hypoglycemia Protocol Insulin Aspart 2 - 5 units 07/07/25 17:00 07/07/25 17:59 Insulin Aspart (*Bkc) 100 Units/Ml SUB-Q Not Given TIDWM [facility] Protocol Insulin Glargine 8 units 07/08/25 09:00 Insulin Glargine (*Bkc) 100 Units/Ml SUB-Q DAILY IVONE Loperamide HCl 2 mg 07/07/25 14:57 Loperamide Hcl 2 Mg Capsule PO PRN PRN Diarrhea Losartan Potassium 25 mg 07/08/25 09:00 Losartan Potassium 25 Mg Tablet PO DAILY IVONE Methocarbamol 500 mg 07/07/25 14:53 Methocarbamol 500 Mg Tablet PO Q8H PRN muscle spasms Metoprolol Tartrate 25 mg 07/07/25 21:00 07/07/25 22:12 Metoprolol Tartrate 25 Mg Tablet BY MOUTH 25 mg Q12HR IVONE Administration Miscellaneous Information 1 each 07/08/25 00:01 Hold Home Lasix? Pt On Iv Lasix XX 08/07/25 00:00 CLARIFY IVONE Pantoprazole Sodium 40 mg 07/08/25 09:00 Pantoprazole 40 Mg Tablet PO QAM IVONE Pramipexole Dihydrochloride 0.5 mg 07/07/25 21:00 07/07/25 22:10 Pramipexole 0.5 Mg Tablet PO 0.5 mg HS IVONE Administration Pravastatin Sodium 10 mg 07/08/25 09:00 Pravastatin Sodium 10 Mg Tablet BY MOUTH DAILY IVONE Sotalol HCl 80 mg 07/07/25 21:00 07/07/25 22:11 Sotalol Hcl 80 Mg Tablet PO 80 mg Q12HR IVNOE Administration Trimethobenzamide HCl 200 mg 07/07/25 14:56 Trimethobenzamide Hcl 200 Mg/2 Ml Vial IM Q6H PRN Nausea And Vomiting Vitamin D 25 mcg 07/08/25 09:00 Cholecalciferol (Vitamin D3) 25 Mcg (1,000 Units) Tablet PO DAILY [facility] Radiology Results: ITS Impressions Cervical Spine CT 07/07/25 06:30 IMPRESSION: HEAD: 1. No acute intracranial findings. 2. Bilateral mastoiditis. C-SPINE: 1. No acute fracture. 2. Ill-defined fluid and postoperative changes posterior to upper cervical spine. 3. Extensive bilateral upper lung airspace disease, and left pleural effusion. Head CT 07/07/25 06:30 IMPRESSION: HEAD: 1. No acute intracranial findings. 2. Bilateral mastoiditis. C-SPINE: 1. No acute fracture. 2. Ill-defined fluid and postoperative changes posterior to upper cervical spine. 3. Extensive bilateral upper lung airspace disease, and left pleural effusion. Chest/Abdomen/Pelvis CT 07/07/25 07:13 IMPRESSION: 1. Diffuse lung disease, likely a combination of pneumonia in the upper lobes and left lower lobe and mild pulmonary edema. 2. Small pleural effusions. 3. Colitis involving the rectosigmoid. Labs Labs: Laboratory Results - last 24 hr 07/07/25 07/07/25 07/08/25 11:39 16:54 07:00 WBC 8.5 RBC 3.41 L Hgb 9.6 L Hct 32.3 L MCV 94.7 MCH 28.2 MCHC 29.7 L RDW 19.6 H Plt Count 283 MPV 11.0 H Immature Gran % (Auto) 1.1 H Neut % (Auto) 76.6 H Lymph % (Auto) 8.4 L [place] % (Auto) 8.8 H Eos % (Auto) 4.5 H Baso % (Auto) 0.6 Lymph # (Auto) 0.72 L [place] # (Auto) 0.8 H Eos # (Auto) 0.4 H Baso # (Auto) 0.1 Abs Immat Gran (auto) 0.09 H Absolute Neuts (auto) 6.5 Absolute Nucleated RBC 0.000 Band Neutrophils % Not Reportable Nucleated RBC % 0.0 Platelet Estimate Adequate Hypochromasia 1+ Anisocytosis 1+ Macrocytosis Occasional Schistocytes None seen Sodium 134 L Potassium 3.3 L Chloride 93 L Carbon Dioxide 38 H Anion Gap 3 L BUN 20 H Creatinine 0.73 Estim Creat Clear Calc 54 Estimated GFR > 60 Glucose 140 H POC Capillary Glucose 123 H 137 H Calcium 8.7 07/08/25 07:50 WBC RBC Hgb Hct MCV MCH MCHC RDW Plt Count MPV Immature Gran % (Auto) Neut % (Auto) Lymph % (Auto) [place] % (Auto) Eos % (Auto) Baso % (Auto) Lymph # (Auto) [place] # (Auto) Eos # (Auto) Baso # (Auto) Abs Immat Gran (auto) Absolute Neuts (auto) Absolute Nucleated RBC Band Neutrophils % Nucleated RBC % Platelet Estimate Hypochromasia Anisocytosis Macrocytosis Schistocytes Sodium Potassium Chloride Carbon Dioxide Anion Gap BUN Creatinine Estim Creat Clear Calc Estimated GFR Glucose POC Capillary Glucose 157 H Calcium Quality VTE Prophylaxis VTE prophylaxis: mechanical ordered and pharmacologic ordered Hospitalist MIPS Advance Care Plan I have confirmed that the patient's Advanced Care Plan is present, code status is documented, or surrogate decision maker is listed in patient medical record.: Yes Medication Reconciliation I have utilized all available resources to obtain, update and review the patients current medications (includes all prescriptions, OTC, herbals, cannabis, and nutritional supplements).: Yes
[2025-07-08] MEDS: CHOLECALCIFEROL (VITAMIN D3) 25 MCG (1,000 UNITS) TABLET PO (09:39)
[2025-07-08] MEDS: guaiFENesin 12 HR 600 MG TABCR 1200 MG PO ×2 (09:40→21:35)
[2025-07-08] MEDS: SOTALOL HCL 80 MG TABLET PO ×2 (09:40→21:35)
[2025-07-08] MEDS: DOXYCYCLINE HYCLATE 100 MG TABLET PO ×2 (09:40→21:35)
[2025-07-08] MEDS: LOSARTAN POTASSIUM 25 MG TABLET PO (09:41)
[2025-07-08] MEDS: PANTOPRAZOLE 40 MG TABLET PO (09:42)
[2025-07-08] MEDS: PRAVASTATIN SODIUM 10 MG TABLET BY MOUTH (09:42)
[2025-07-08] MEDS: ENOXAPARIN 40 MG/0.4 ML SYRINGE SUB-Q (09:42)
[2025-07-08] MEDS: FUROSEMIDE INJ 40 MG/4 ML VIAL IV PUSH (09:42)
[2025-07-08] MEDS: METOPROLOL TARTRATE 25 MG TABLET BY MOUTH ×2 (09:42→21:34)
[2025-07-08] MEDS: INSULIN GLARGINE (*BKC) 100 UNITS/ML 8 UNITS SUB-Q (09:46)
[2025-07-08] MEDS: POTASSIUM CHLORIDE 20 MEQ ER TABLET 40 MEQ PO (09:53)
[2025-07-08] MEDS: ACETAMINOPHEN 325 MG TABLET 650 MG PO (12:24)
[2025-07-08] MEDS: INSULIN ASPART (*BKC) 100 UNITS/ML SUB-Q (12:25)
[2025-07-08] MEDS: PRAMIPEXOLE 0.5 MG TABLET PO (21:35)
[2025-07-09] VITALS (7 sets, daily range): BP systolic 104–120; BP diastolic 65–74; PULSE 66–86; RESP 16–18; TEMP 36–36.2; O2SAT 93–100
[2025-07-09] MEDS: cefTRIAXone 1 GM in SODIUM CHLORIDE 0.9% IV 50 ML 100 ML IVPB (05:33)
[2025-07-09] MEDS: INSULIN GLARGINE (*BKC) 100 UNITS/ML 8 UNITS SUB-Q (08:31)
[2025-07-09] MEDS: FUROSEMIDE INJ 40 MG/4 ML VIAL IV PUSH (08:31)
[2025-07-09] MEDS: CHOLECALCIFEROL (VITAMIN D3) 25 MCG (1,000 UNITS) TABLET PO (08:32)
[2025-07-09] MEDS: DOXYCYCLINE HYCLATE 100 MG TABLET PO ×2 (08:32→20:52)
[2025-07-09] MEDS: METOPROLOL TARTRATE 25 MG TABLET BY MOUTH ×2 (08:32→20:53)
[2025-07-09] MEDS: SOTALOL HCL 80 MG TABLET PO ×2 (08:32→20:52)
[2025-07-09] MEDS: ENOXAPARIN 40 MG/0.4 ML SYRINGE SUB-Q (08:32)
[2025-07-09] MEDS: PRAVASTATIN SODIUM 10 MG TABLET BY MOUTH (08:32)
[2025-07-09] MEDS: PANTOPRAZOLE 40 MG TABLET PO (08:32)
[2025-07-09] MEDS: guaiFENesin 12 HR 600 MG TABCR 1200 MG PO ×2 (08:33→20:52)
[2025-07-09] MEDS: LOSARTAN POTASSIUM 25 MG TABLET PO (08:33)
--- NOTE | 2025-07-09 10:06 | P.PNIM_ITS ---
Progress Note: A&P Assessment and Plan (1) Fall: Code(s): W19.XXXA - Unspecified fall, initial encounter Status: Acute Assessment and Plan: Likely due to UTI and weakness PT OT evaluate and treat Treat underlying infections Fall precautions (2) UTI (urinary tract infection): Code(s): N39.0 - Urinary tract infection, site not specified Status: Acute Assessment and Plan: IV Rocephin Culture and sensitive pending No IV fluids due to pulmonary edema and pleural effusion (3) Pulmonary edema: Code(s): J81.1 - Chronic pulmonary edema Status: Acute Assessment and Plan: Patient likely has a history of CHF as she is on Lasix at home IV Lasix x1 Daily weight Fluid restriction (4) Pleural effusion: Code(s): J90 - Pleural effusion, not elsewhere classified Status: Acute Assessment and Plan: A.m. chest x-ray Changed PO 40mg Lasix to IV Follow creatinine (5) Pneumonia: Code(s): J18.9 - Pneumonia, unspecified organism Status: Acute Assessment and Plan: IV Rocephin and azithromycin Guaifenesin Incentive spirometer (6) Cervical spine fracture: Code(s): S12.9XXA - Fracture of neck, unspecified, initial encounter Status: Acute Assessment and Plan: From previous fall status post surgery Continue C-collar MoBap neuro surgery has privileges here Fluid collections seen on CT however Neurosurgery states that this is normal postop, patient has no neuro deficits Sarai has been on hold since 06/26. Restart if ok with neurosurgery. (7) Type 2 diabetes mellitus with diabetic nephropathy: Qualifiers: Diabetes mellitus salvage determiner insulin use: without salvage determiner use Qualified Code(s): E11.21 - Type 2 diabetes mellitus with diabetic nephropathy Code(s): E11.21 - Type 2 diabetes mellitus with diabetic nephropathy Status: Acute Assessment and Plan: Accu-Cheks a.c. HS Low-dose insulin SSI and home Lantus 8 units daily (8) Colitis: Code(s): K52.9 - Noninfective gastroenteritis and colitis, unspecified Status: Acute Assessment and Plan: Chronic diarrhea. CT showed colitis involving the rectosigmoid. 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: Code(s): I25.719 - Atherosclerosis of autologous vein coronary artery bypass graft(s) with unspecified angina pectoris Status: Chronic Assessment and Plan: Continue losartan, metoprolol, pravastatin and s sotalol (10) Dyslipidemia: Code(s): E78.5 - Hyperlipidemia, unspecified Status: Acute Assessment and Plan: Continue statin (11) Pressure ulcer: Code(s): L89.90 - Pressure ulcer of unspecified site, unspecified stage Status: Acute Assessment and Plan: Stage III on coccyx and sacrum Wound care consulted No signs of infection Time Spent With Patient Time: 23 minutes Subjective Date/time seen: 07/09/25 10:06 Interval history: Urine culture growing GNB's. Previously grew pansensitive ecoli Cultures pending Pending labs, Neurosurgery Review of Systems Review of Systems: 12 systems were reviewed and are negativ e except for as per HPI. ROS unobtainable: Yes unobtainable due to mental status Exam Narrative: General: Chronically ill-appearing HEENT: normocephalic, atraumatic. Mucous membranes moist. EOMI, PERRLA, bilateral sclera anicteric, no conjunctival injection. Neck supple without JVD, lymphadenopathy, or bruit. Cervical collar Respiratory: clear bilaterally. No rales/rhonic/wheezes. Cardiovascular: Regular rate and rhythm, normal S1-S2. No murmurs, rubs, or clicks. PMI is nondisplaced, capillary refill less than 3 second. Abdomen: Soft, round, no pulsatile masses, nondistended and nontender. No rebound, no guarding. Bowel sounds present to all four quadrants. No high pitch or tinkling sounds, resonant to percussion. Extremities: No cyanosis, clubbing. left upper extremity edema. Pulses are palpable 2/2. Active ROM to all four extremities. Neuro: Alert and orientated x 3, but forgetful. PERRLA. Cranial nerves 2-12 intact without focal deficit. Skin: Warm, dry, and intact, erythema, left arm eschar, buttocks escoriation Psych: pleasant, cooperative, normal speech, normal affect, no hallucinations, no dysarthia Generalized ecchymosis Objective Data Vital Signs Vital Signs: Vital Signs - 24 hr 07/08/25 10:50 07/08/25 14:15 07/08/25 20:00 Temperature 97.2 F L Pulse Rate 112 H Respiratory Rate 16 Blood Pressure 107/44 L Pulse Oximetry 91 91 Oxygen Delivery Nasal Cannula Nasal Cannula Oxygen Flow Rate 2 2 07/08/25 20:11 07/08/25 21:34 07/08/25 21:35 Temperature Pulse Rate 88 88 Respiratory Rate Blood Pressure Pulse Oximetry 93 Oxygen Delivery Nasal Cannula Oxygen Flow Rate 2 07/08/25 22:00 07/09/25 06:00 07/09/25 08:32 Temperature 97.7 F 97.0 F L Pulse Rate 71 66 68 Respiratory Rate 18 18 Blood Pressure 103/64 120/65 Pulse Oximetry 91 93 Oxygen Delivery Oxygen Flow Rate 07/09/25 08:32 Temperature Pulse Rate 68 Respiratory Rate Blood Pressure Pulse Oximetry Oxygen Delivery Oxygen Flow Rate Intake/Output Intake/Output: Intake & Output 07/06/25 07/07/25 07/08/25 07/09/25 23:59 23:59 23:59 23:59 Intake Total 170 1120 637 Output Total 625 0025 450 Balance -455 -455 187 Meds/Results Medications: Active Medications Generic Name Dose Route Start Last Admin Trade Name Freq PRN Reason Stop Dose Admin Acetaminophen 650 mg 07/07/25 08:10 07/08/25 12:24 Acetaminophen 325 Mg Tablet PO 650 mg Q4H PRN Administration Mild Pain (1-3) or Fever Dextrose 12.5 gm 07/07/25 13:53 Dextrose 50% 25 Gm/50 Ml Syringe IV PUSH PRN PRN Hypoglycemia Protocol Doxycycline Hyclate 100 mg 07/07/25 21:00 07/09/25 08:32 Doxycycline Hyclate 100 Mg Tablet PO 100 mg Q12HR IVONE Administration Enoxaparin Sodium 40 mg 07/08/25 09:00 07/09/25 08:32 Enoxaparin 40 Mg/0.4 Ml Syringe SUB-Q 40 mg DAILY IVONE Administration Furosemide 40 mg 07/08/25 09:00 07/09/25 08:31 Furosemide Inj 40 Mg/4 Ml Vial IV PUSH 40 mg DAILY IVONE Administration Furosemide 0 mg 07/07/25 18:55 Furosemide 40 Mg Tablet BY MOUTH .COMPLEX IVONE Glucose 15 gm 07/07/25 13:53 Glucose Oral Gel 15 Gm Of Glucse In 37.5 Gm Tube PO PRN PRN Hypoglycemia Protocol Guaifenesin 1,200 mg 07/07/25 21:00 07/09/25 08:33 Guaifenesin 12 Hr 600 Mg Tabcr PO 1,200 mg Q12HR IVONE Administration Ceftriaxone Sodium 1 gm/ 50 mls @ 100 mls/hr 07/08/25 06:00 07/09/25 06:03 Sodium Chloride IVPB Infused Q24H IVONE Infusion Dextrose 1,000 mls @ 100 mls/hr 07/07/25 13:53 Dextrose 5% 1,000 Ml IVPB PRN PRN Hypoglycemia Protocol Insulin Aspart 2 - 5 units 07/07/25 17:00 07/09/25 08:33 Insulin Aspart (*Bkc) 100 Units/Ml SUB-Q Not Given TIDWM [facility] Protocol Insulin Glargine 8 units 07/08/25 09:00 07/09/25 08:31 Insulin Glargine (*Bkc) 100 Units/Ml SUB-Q 8 units DAILY IVONE Administration Loperamide HCl 2 mg 07/07/25 14:57 Loperamide Hcl 2 Mg Capsule PO PRN PRN Diarrhea Losartan Potassium 25 mg 07/08/25 09:00 07/09/25 08:33 Losartan Potassium 25 Mg Tablet PO 25 mg DAILY IVONE Administration Methocarbamol 500 mg 07/07/25 14:53 07/09/25 08:32 Methocarbamol 500 Mg Tablet PO 500 mg Q8H PRN Administration muscle spasms Metoprolol Tartrate 25 mg 07/07/25 21:00 07/09/25 08:32 Metoprolol Tartrate 25 Mg Tablet BY MOUTH 25 mg Q12HR IVONE Administration Miscellaneous Information 1 each 07/08/25 00:01 Hold Home Lasix? Pt On Iv Lasix XX 08/07/25 00:00 CLARIFY IVONE Pantoprazole Sodium 40 mg 07/08/25 09:00 07/09/25 08:32 Pantoprazole 40 Mg Tablet PO 40 mg QAM IVONE Administration Pramipexole Dihydrochloride 0.5 mg 07/07/25 21:00 07/08/25 21:35 Pramipexole 0.5 Mg Tablet PO 0.5 mg HS IVONE Administration Pravastatin Sodium 10 mg 07/08/25 09:00 07/09/25 08:32 Pravastatin Sodium 10 Mg Tablet BY MOUTH 10 mg DAILY IVONE Administration Sotalol HCl 80 mg 07/07/25 21:00 07/09/25 08:32 Sotalol Hcl 80 Mg Tablet PO 80 mg Q12HR IVONE Administration Trimethobenzamide HCl 200 mg 07/07/25 14:56 Trimethobenzamide Hcl 200 Mg/2 Ml Vial IM Q6H PRN Nausea And Vomiting Vitamin D 25 mcg 07/08/25 09:00 07/09/25 08:32 Cholecalciferol (Vitamin D3) 25 Mcg (1,000 Units) Tablet PO 25 mcg DAILY IVONE Administration Radiology Results: ITS Impressions Cervical Spine CT 07/07/25 06:30 IMPRESSION: HEAD: 1. No acute intracranial findings. 2. Bilateral mastoiditis. C-SPINE: 1. No acute fracture. 2. Ill-defined fluid and postoperative changes posterior to upper cervical spine. 3. Extensive bilateral upper lung airspace disease, and left pleural effusion. Head CT 07/07/25 06:30 IMPRESSION: HEAD: 1. No acute intracranial findings. 2. Bilateral mastoiditis. C-SPINE: 1. No acute fracture. 2. Ill-defined fluid and postoperative changes posterior to upper cervical spine. 3. Extensive bilateral upper lung airspace disease, and left pleural effusion. Chest/Abdomen/Pelvis CT 07/07/25 07:13 IMPRESSION: 1. Diffuse lung disease, likely a combination of pneumonia in the upper lobes and left lower lobe and mild pulmonary edema. 2. Small pleural effusions. 3. Colitis involving the rectosigmoid. Chest X-Ray 07/08/25 12:31 IMPRESSION: 1. Interstitial and airspace opacities throughout both lungs mild pulmonary edema, pneumonia or combination of both. 2. Very small bilateral pleural effusions. Labs Labs: Laboratory Results - last 24 hr 07/08/25 07/08/25 07/08/25 11:16 17:01 20:00 POC Capillary Glucose 311 H 110 H 254 H 07/09/25 07:25 POC Capillary Glucose 158 H Quality VTE Prophylaxis VTE prophylaxis: mechanical ordered and pharmacologic ordered Hospitalist MIPS Advance Care Plan I have confirmed that the patient's Advanced Care Plan is present, code status is documented, or surrogate decision maker is listed in patient medical record.: Yes Medication Reconciliation I have utilized all available resources to obtain, update and review the patients current medications (includes all prescriptions, OTC, herbals, cannabis, and nutritional supplements).: Yes
[2025-07-09 10:56] LABS: Hematocrit 35.6 % (37.0-47.0); Hemoglobin 10.8 g/dL (12.0-15.0); Immature Granulocyte Percent A 1.0 % (0-0.5); Lymphocytes Absolute Auto 0.83 K/mm3 (0.9-3.2); Mean Corpuscular HGB Conc 30.3 g/dl (32-36); Mean Corpuscular Hemoglobin 28.7 pg (26-34); Mean Corpuscular Volume 94.7 fl (80-100); Nucleated Red Blood Cells Absolute Auto 0.000 K/mm3 (0.0-0.012); Nucleated Red Blood Cells Perc 0.0 % (0.0-0.2); Platelet Count Result 299 k/mm3 (150-375); Red Blood Count 3.76 M/mm3 (4.2-5.4); White Blood Count 10.0 K/mm3 (4.5-10.0)
[2025-07-09 11:19] LABS: CRP 2.7 mg/dL (<1.0); Magnesium 1.1 mg/dL (1.6-2.3)
[2025-07-09 11:51] LABS: Anion Gap 5 mmol/L (4-12); Blood Urea Nitrogen 25 mg/dL (7-17); Calcium 8.6 mg/dL (8.4-10.2); Carbon Dioxide 34 mmol/L (22-30); Chloride 92 mmol/L (98-107); Estimated CRCL calculation 62 ml/min; Estimated Glomerular Filt Rate > 60; Sodium 131 mmol/L (137-145)
[2025-07-09 11:57] LABS: Glucose 194 mg/dL (65-110); Potassium 3.7 mmol/L (3.4-5.0)
--- NOTE | 2025-07-09 14:48 | WPDNEUROSGCN ---
Assessment and Plan Assessment and plan (1) Status post cervical arthrodesis: Code(s): Z98.1 - Arthrodesis status Status: Acute Plan Ms. Clifford is a 75-year-old female with history of cervical myelopathy who underwent posterior cervical decompression and fusion C2-6 at [facility] on June 26 who was admitted here on July 07 for a UTI and pneumonia. Neurosurgery was consulted for the CT findings of a fluid collection at the surgical site. Her incision is healing appropriately and has Steri-Strips in place. There is no drainage from her incision. She has had no fever since admission and has a normal white count. I reviewed the CT scan on which there is an expected fluid collection at the surgical site. Her hardware is well positioned. I am not concerned about the possibility of infection at her surgical site at this time. She currently is receiving antibiotics for her UTI and pneumonia. I do recommend encouragement of incentive spirometry and aggressive mobilization. She should continue to wear her cervical collar per Dr. Renae's instructions for 3 months postoperatively. Consult date: 07/09/25 HPI: Laura Clifford is a 75 year old female with history of diabetes, atrial fibrillation, coronary artery disease, hypertension, hyperlipidemia who was admitted to the hospital on July 07 for pneumonia and a UTI after presenting with altered mental status. She notably underwent a posterior cervical decompression and fusion C2-6 on June 26 at [facility] with my partner, Dr. Renae, for cervical myelopathy. She was discharged on July [address] [facility] but was taken to the emergency room at [place] on the for her altered mental status. A CT cervical spine was obtained on admission showing a fluid collection in the cervical region for which I was officially consulted yesterday evening. She reports some pain in her neck and reports being irritated at having to wear the cervical collar. She denies any radicular pain or paresthesias into her extremities. She is not aware of having any drainage from her surgical site. She is feeling some shortness of breath. Review of Systems Review of Systems: All systems reviewed & are unremarkable except as noted in HPI and below PMFSH Past Medical History Medical History Preop cardiovascular exam Chronic obstructive pulmonary disease, unspecified Hard of hearing Eustachian tube dysfunction Cubital tunnel syndrome on right Pulmonary hypertension Chronic idiopathic myocarditis Restless leg syndrome 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 Chronic respiratory failure with hypoxia, on home oxygen therapy Transient ischemic attack Chronic hyponatremia Venous insufficiency Iron deficiency anemia Polymyalgia rheumatica Small vessel disease, cerebrovascular Chronic anticoagulation Paroxysmal atrial fibrillation Coronary artery disease Microscopic colitis Chronic diarrhea Exocrine pancreatic insufficiency COVID-19 Cervical arthritis Pneumonia Dyslipidemia Essential hypertension Gastro-esophageal reflux disease without esophagitis Multifocal atrial tachycardia Surgical History Surgical History History of heart artery stent History of cardiac catheterization History of bilateral knee replacement History of bilateral carpal tunnel release History of colonoscopy with polypectomy History of coronary artery bypass graft x 2 (12/2013) History of Achilles tendon repair History of spinal surgery Lumbar micro discectomy infusion. History of mitral valve repair History of shoulder surgery History of cataract extraction Left History of hand surgery trigger finger, thumb Family History Family History Mother Cerebrovascular accident Family history of diabetes mellitus in first degree relative Family history of coronary artery disease Acute myocardial infarction Diabetes mellitus Father Carcinoma of colon Family history of lung cancer Family history of malignant neoplasm of esophagus Sibling Liver disease Liver transplant recipient Other Family history of malignant neoplasm of brain Family history of malignant neoplasm of stomach Social History Social History Social History: Surrogate medical decision maker: Filippo Clifford, spouse. Code status: Full code. Smoking status: Never smoker Second hand tobacco smoke exposure: Yes Alcohol intake: never Drinks per week: 1 Alcohol use details: Rare alcohol use in moderation. Substance use: never Substance use type: does not use Do You Feel Safe in your Home?: Yes Lack of Transportation: No Lack of Food: Never True Current Housing: I Have Housing Concerned About Future Housing: No Difficulty Paying Gas/Electric Bills: No Difficulty Paying for Meds: No Currently Unemployed: No Education: Decline to Answer Difficulty w/ Childcare or Family Care: No Living arrangements: with family Additional living arrangements comments: Lives in [facility]. Occupation/Education: retired Additional occupation/education comments: Worked in [employer]. Spiritual care concerns: No Meds Home Medications and Allergies Home Medications ?Medication ?Instructions ?Recorded ?Confirmed ?Type arformoterol 15 mcg/2 mL solution See Rx Instructions .Route 06/16/24 07/07/25 Rx for nebulization .COMPLEX #30 ea evolocumab 140 mg/mL subcutaneous 140 mg subcut .every 2 weeks #2 mL 11/10/24 07/07/25 Rx pen injector (Angelika Freeman) metoprolol tartrate 25 mg tablet See Rx Instructions .Route 01/05/25 07/07/25 Rx .COMPLEX #180 tabs rivaroxaban 20 mg tablet (Xarelto) See Rx Instructions .Route 01/10/25 07/07/25 Rx .COMPLEX #30 tabs furosemide 40 mg tablet See Rx Instructions .Route 02/13/25 07/07/25 Rx .COMPLEX #90 tabs pravastatin 10 mg tablet See Rx Instructions .Route 03/07/25 07/07/25 Rx .COMPLEX #90 tabs pramipexole 0.5 mg tablet 0.5 mg PO HS #90 tabs 03/19/25 07/07/25 Rx pantoprazole 40 mg tablet,delayed 40 mg PO QAM #90 tabs 04/02/25 07/07/25 Rx release sotalol 80 mg tablet 80 mg PO Q12H 04/27/25 07/07/25 History metformin 500 mg tablet,extended 1,000 mg (2 x 500 mg) PO QPM #90 05/22/25 07/07/25 Rx release 24 hr tabs cholecalciferol (vitamin D3) 25 25 mcg PO DAILY 07/07/25 07/07/25 History mcg (1,000 unit) capsule (Vitamin D3) insulin glargine 100 unit/mL 10 unit subcut DAILY 07/07/25 07/07/25 History subcutaneous solution (Lantus U-100 Insulin) insulin lispro 100 unit/mL 5 unit subcut TID 07/07/25 07/07/25 History subcutaneous solution (Humalog U-100 Insulin) losartan 25 mg tablet 25 mg PO DAILY 07/07/25 07/07/25 History magnesium oxide 250 mg PO DAILY 07/07/25 07/07/25 History methocarbamol 500 mg tablet 500 mg PO Q8H PRN muscle spasms 07/07/25 07/07/25 History potassium chloride 10 mEq oral 20 meq PO DAILY 07/07/25 07/07/25 History packet (Pokonza) Allergies Allergy/AdvReac Type Severity Reaction Status Date / Time ciprofloxacin Allergy Mild Unknown Verified 07/07/25 13:13 codeine Allergy Mild Vomiting Verified 07/07/25 13:13 levofloxacin Allergy Unknown Unknown Verified 07/07/25 13:13 lisinopril Allergy Unknown Unknown Verified 07/07/25 13:13 amoxicillin (From Augmentin) AdvReac Severe Confusion Verified 07/07/25 13:13 clavulanic acid (From AdvReac Severe Confusion Verified 07/07/25 13:13 Augmentin) tramadol AdvReac Mild Vomiting Verified 07/07/25 13:13 Vital Signs Vital Signs - 24 hr 07/08/25 20:00 07/08/25 20:11 07/08/25 21:34 Temperature Pulse Rate 88 Respiratory Rate Blood Pressure Pulse Oximetry 91 93 Oxygen Delivery Nasal Cannula Nasal Cannula Oxygen Flow Rate 2 2 07/08/25 21:35 07/08/25 22:00 07/09/25 06:00 Temperature 97.7 F 97.0 F L Pulse Rate 88 71 66 Respiratory Rate 18 18 Blood Pressure 103/64 120/65 Pulse Oximetry 91 93 Oxygen Delivery Oxygen Flow Rate 07/09/25 08:32 07/09/25 08:32 Temperature Pulse Rate 68 68 Respiratory Rate Blood Pressure Pulse Oximetry Oxygen Delivery Oxygen Flow Rate Exam Narrative: Incision c/d/i with steristrips in place No drainage on island dressing that was placed 2 days ago Cervical collar in place Slight intrinsic hand weakness but moving all extremities well No Biswas's AO to person, place, and month/year Unless otherwise stated above, the patient's physical exam is as follows: General: -Well developed and well nourished. No acute distress. Cooperative with exam. Mental status: -Awake and oriented to person, place, and time. Integumentary: -No obvious skin lesions or masses Motor: -Muscle tone normal without spasticity of flaccidity. No atrophy. No fasciculations. -No pronator drift -Right upper extremity: deltoid 5/5, biceps 5/5, triceps 5/5, wrist extensors 5/5, wrist flexors 5/5, intrinsics 5/5 -Left upper extremity: deltoid 5/5, biceps 5/5, triceps 5/5, wrist extensors 5/5, wrist flexors 5/5, intrinsics 5/5 -Right lower extremity: iliopsoas 5/5, quadriceps 5/5, hamstrings 5/5, tibialis anterior 5/5, gastroc-soleus 5/5, EHL 5/5 -Left lower extremity: iliopsoas 5/5, quadriceps 5/5, hamstrings 5/5, tibialis anterior 5/5, gastroc-soleus 5/5, EHL 5/5 Sensory: -Intact to light touch throughout -Normal proprioception throughout Reflexes: -1-2+ DTR's throughout -No Biswas's, clonus, or Babinski bilaterally Results Labs 07/09/25 10:41 07/09/25 10:41 Labs: Short CBC 07/09/25 Range/Units 10:41 WBC 10.0 (4.5-10.0) K/mm3 Hgb 10.8 L (12.0-15.0) g/dL Hct 35.6 L (37.0-47.0) % Plt Count 299 (150-375) k/mm3 [facility] 07/09/25 10:41 Sodium 131 L Potassium 3.7 Chloride 92 L Carbon Dioxide 34 H BUN 25 H Creatinine 0.64 L Glucose 194 H Calcium 8.6
[2025-07-09] MEDS: MAGNESIUM SULF 2 GM/WATER 50ML 2 GM/50 ML BAG IVPB (16:16)
[2025-07-09] MEDS: PRAMIPEXOLE 0.5 MG TABLET PO (20:52)
[2025-07-10] VITALS (48 sets, daily range): BP systolic 68–137; BP diastolic 31–107; PULSE 55–131; RESP 14–30; TEMP 36.7–37.4; O2SAT 91–100
[2025-07-10] MEDS: cefTRIAXone 1 GM in SODIUM CHLORIDE 0.9% IV 50 ML 100 ML IVPB (05:30)
[2025-07-10 09:23] LABS: Alveolar/Arterial O2 Gradient 3.4 mmHg; Fractional Inspired Oxygen 28 %; HCO3 ABG 39.0 mEq/l (22.0-26.0); Oxygen Content ABG 13.9 %vol (16.0-22.0); Oxygen Saturation ABG 97.1 % (95.0-100.0); PO2 ABG 104.6 mmHg (80.0-100.0); PO2 FiO2 Ratio Arterial Blood 3.74 %
[2025-07-10 09:25] LABS: PCO2 ABG 77.7 mmHg (35.0-45.0)
[2025-07-10 09:26] LABS: Liters per Minute 2.0 LPM; Modified Allen's Test Pass; Site Drawn LEFT RADIAL
--- NOTE | 2025-07-10 10:00 | PCOTNOTE ---
Patient unable to be seen for therapy. Patient is being moved to IMU, having critical ABGs and on Bipapp. Will check back at a later time.
[2025-07-10 10:28] LABS: Hematocrit 31.8 % (37.0-47.0); Hemoglobin 9.3 g/dL (12.0-15.0); Mean Corpuscular HGB Conc 29.2 g/dl (32-36); Mean Corpuscular Hemoglobin 28.1 pg (26-34); Mean Corpuscular Volume 96.1 fl (80-100); Platelet Count Result 302 k/mm3 (150-375); Red Blood Count 3.31 M/mm3 (4.2-5.4); White Blood Count 8.9 K/mm3 (4.5-10.0)
--- NOTE | 2025-07-10 10:52 | ADMGEN ---
This patient, Laura Clifford, was admitted to IMU Room 200-01 from bed 323 on 3 med surg. Patient/family oriented to hospital policies and general routines including ID bracelet, bed and alarms, visiting hours, pain management, procedures, bathroom and other care routines, personal items, smoking policy, room service/diet, and visiting hours. and daughter notified of pt being moved to imu by jg oscar. Glasses brought down with pt, bed alarm on Information on how to activate the Rapid Response Team has been discussed. Patient/Family are encouraged to report perceived risks to care and to ask questions if they do not understand what they are told or what they should do.
[2025-07-10 11:05] LABS: Procalcitonin 0.1 ng/mL
--- NOTE | 2025-07-10 11:11 | PC.NURSE ---
Pt unable to respond to verbal or physical stimuli. Sternal rub only solicit a single, short eye opening. Vitals BP 112/56, HR 52, R 30, Temp 96.6 temporal, 02 sat 94% 2L NC. Provider called, and orders received. ABG critical and provider made aware; this RN asked if I should call a rapid, but provider stated she would come to bedside. welding robot operator notified who came to bedside. welding robot operator called provider and orders received for bipap; respiratory to bedside to place. Vascular access and lab obtained labs and new IV. This RN called pt family to notify pt will be transferring to room 200. Report called to MARILYN Craven. Pt moved with resp assistance, on bipap, with belongings including glasses. Daughter also called and made aware. Meds unable to be given as pt unable to swallow; held lantus as provider awaiting results of testing. Daughter concerned pt has dementia. Informed daughter that she should voice concerns with provider.
--- NOTE | 2025-07-10 11:14 | PM.CNPUL ---
Assessment and Plan Assessment and plan (1) Respiratory failure with hypoxia and hypercapnia: Code(s): J96.91 - Respiratory failure, unspecified with hypoxia; J96.92 - Respiratory failure, unspecified with hypercapnia Status: Acute Assessment and Plan: When patient was last seen in the Pulmonary Clinic on 01/12/2023 she was on no oxygen at rest and 4 L with activity. ABG on 11/20/2022 on room air was 7.42/41/73. I spoke to the . Patient was recently admitted to [facility] for 26 days. She was discharged to [facility] on 07/04/2025. During this hospitalization she had the above-mentioned cervical neck operation. In addition she had an abnormal CT scan with upper lobe infiltrates and high calcium levels. Patient was seen by the Pulmonary team and she underwent biopsy. After the biopsy the Pulmonary team told the that she had sarcoid and that she required prednisone 10 mg a day to control her calcium. The says that the patient never had respiratory distress but did have high carbon dioxide and she was transferred to the ICU for few days and required BiPAP mask treatment. After a few days she was transferred out of the ICU and did not wear the BiPAP any longer. The patient was discharged to [facility] on 2 L nasal cannula and the family was not told that she needed a BiPAP machine. The patient was supposed to be on prednisone 10 mg a day. 07/07/2025 patient presents after a fall and required 2 L nasal cannula at rest with saturations 91-94%. She has been diagnosed with a pansensitive E coli UTI and is being treated with ceftriaxone and azithromycin for UTI and possible pneumonia. 07/10/2025: Patient had altered mental status and was more somnolent and an ABG on 2 L nasal cannula 7.32/77.7/105. White blood cell count was 8.9, creatinine was 0.63. BNP was 3860, CRP was 2.6, procalcitonin was 0.1. Patient was empirically started on rate of 14, BiPAP 15/5 and then had hypoxia and one hour ago her settings were changed to a rate of 14, 18/8 and 70% FiO2. When I enter the room the patient was on BiPAP rate of 14, breathing 21 times a minute, pressures 18/8 with tidal volumes 375-425, minute ventilation 7.1, inspiratory time 0.8, rise of 5 and 70% FiO2 with 100% saturations. Patient would arouse to loud verbal commands, deep pain in all 4 extremities she would withdraw but she would not say her name. She would mumble but not follow any verbal commands. Unclear etiology of patient's altered mental status. Patient does have acute on chronic hypercarbic and hypoxemic respiratory failure although her blood gas earlier today shows acute on chronic hypercarbic respiratory failure with near complete compensation with a pH of 7.32/77.7/105. patient does have a UTI. Patient may have a pneumonia. Patient has a history of atrial fibrillation and anticoagulation has been held since 07/07/2025: Plan: Patient currently on ceftriaxone and azithromycin since 07/07/2025, day 4 both. I will repeat a blood gas on BiPAP to reassess patient's acid-base status. I will send a repeat COVID, influenza, RSV RT PCR assay, respiratory pathogen panel, urine for Legionella, urine for pneumococcal and serum mycoplasma IgM. Blood cultures are pending. I have ordered an echocardiogram. Repeat ABG on BIPAP 7.32/78.7/152. I went to bedside and placed patient on AVAPS rate 20, TV 500, epap 5, min I PAP 6, max IPAP 25, I time 0.65, rise of 3 and 30% FIO2. I discussed with weed cutter and plan to move to ICU. Discussed with Rose Lanza and Dr. Allen (2) Pulmonary hypertension: Code(s): I27.20 - Pulmonary hypertension, unspecified Status: Acute Assessment and Plan: 11/21/2022: Echocardiogram with RVSP 59. Etiology of pulmonary hypertension include sleep-related breathing disorder, sarcoidosis, coronary artery disease with mitral valve repair since 2013. 07/10/2025: Patient presented with fall. Plan: I will repeat echocardiogram to reassess LV function, RV function, pulmonary pressures and valves. (3) Sarcoid: Code(s): D86.9 - Sarcoidosis, unspecified Status: Acute Assessment and Plan: Regarding her sarcoid: CT scan 12/21/2024 with increased upper lobe nodular infiltrates and reticulations compared to 11/20/2024. Unchanged lower lobe mosaic attenuation. 11/20/22 to 11/24/22 she was hospitalized for pneumonia and hypoxemic respiratory failure.? CT angiogram 11/20/2022 demonstrated no pulmonary embolism, diffuse mosaic attenuation in all lung ruvalcaba which was present on CT angiogram from 08/26/2022, CT abdomen on 07/09/2022, CTA on 06/26/2019, 12/21/2017 and mosiac attenuation had increased from 11/30/2013. Reports of high resolution CT scan and 04/18/2010 demonstrated improved infiltrates and mosaic attenuation. 07/10/25: I spoke to the . Patient was recently admitted to [facility] for 26 days (about 06/07/25 through 07/04/25). She was discharged to [facility] on 07/04/2025. During this hospitalization she had the above-mentioned cervical neck operation. In addition she had an abnormal CT scan with upper lobe infiltrates and high calcium levels. Patient was seen by the Pulmonary team and she underwent biopsy. After the biopsy the Pulmonary team told the that she had sarcoid and that she required prednisone 10 mg a day to control her calcium. The says that the patient never had respiratory distress but did have high carbon dioxide and she was transferred to the ICU for few days and required BiPAP mask treatment. After a few days she was transferred out of the ICU and did not wear the BiPAP any longer. The patient was discharged to [facility] on 2 L nasal cannula and the family was not told that she needed a BiPAP machine. The patient was supposed to be on prednisone 10 mg a day. 01/07/2023: PFTs Impression: There is a combined obstructive and restrictive ventilatory abnormality. There are no guidelines to assign the severity of obstruction and restriction with a combined abnormality. In my opinion, given the moderately concave expiratory flow tracing and normal FEV1: FVC ratio and moderate restrictive abnormality I would state there is a mild obstructive abnormality and a moderate restrictive abnormality resulting in a severely decreased FEV1. There is no significant improvement after inhaling a single dose of albuterol. The diffusing capacity unadjusted for hemoglobin and carboxyhemoglobin is moderately decreased and normalizes when adjusted for alveolar volume. On 06/12/2025 patient had a bronchoscopy at [facility]. This was performed for CT scan with numerous upper lobe nodules and concern for sarcoidosis. I have pathology reports from BAL and right upper lobe biopsies which demonstrated few noncaseating granulomas with scattered clusters of multinucleated giant cells special stains were negative for AFB and GMS. BAL was negative for malignancy.: Right upper lobe BAL: Side is pins and cell block: Negative for malignancy. 07/07/2025: CT scan of the chest showed bilateral right upper lobe greater than left upper lobe homogeneous reticulations with nodular infiltrates, small bilateral pleural effusions left greater than right, no change in her upper lobe or lower lobe mosaic attenuation from 12/21/2024. Etiology of interstitial lung disease is sarcoidosis and less likely hypersensitivity pneumonitis, chronic AFB-fungal infection, or rheumatoid lung. Plan: Patient Family was told she needed prednisone 10 mg a day to control her calcium. Prednisone is not listed as a home medicine from [facility]. Calcium was 8.4 on admission to our hospital on 07/07/2025 and today is 8.9. Patient has an active urinary tract infection and at this time I will hold steroids. She is normotensive with normal glucose there is no evidence of adrenal insufficiency. History of Present Illness History of Present Illness Consult date: 07/10/25 Chief complaint: PNA/UTI Narrative: 07/10/2025: This is a new pulmonary consult for acute on chronic hypercarbic respiratory failure. 75-year-old with a history of chronic mosaic attenuation since 2013 and since with bilateral upper lobe septal thickening with nodular infiltrates since 12/21/24 With biopsy 06/12/2025 with noncaseating granulomas in scattered multinucleated giant cells, pulmonary hypertension, rheumatoid arthritis, polymyalgia rheumatica, CAD with CABG and mitral valve repair 02/27/2014, anemia, hyperlipidemia, hypertension, GERD, paroxysmal atrial fibrillation on rivaroxaban, PMR, TIA, dementia, cervical stenosis s/p posterior cervical decompression with fusion of C2-C6 at [facility] on 06/26/25. Regarding her chronic lung disease: CT scan 12/21/2024 with increased upper lobe nodular infiltrates and reticulations compared to 11/20/2024. Unchanged lower lobe mosaic attenuation. 11/20/22 to 11/24/22 she was hospitalized for pneumonia and hypoxemic respiratory failure.? CT angiogram 11/20/2022 demonstrated no pulmonary embolism, diffuse mosaic attenuation in all lung ruvalcaba which was present on CT angiogram from 08/26/2022, CT abdomen on 07/09/2022, CTA on 06/26/2019, 12/21/2017 and mosiac attenuation had increased from 11/30/2013. Reports of high resolution CT scan and 04/18/2010 demonstrated improved infiltrates and mosaic attenuation. On 06/12/2025 patient had a bronchoscopy at [facility]. This was performed for CT scan with numerous upper lobe nodules and concern for sarcoidosis. I have pathology reports from BAL and right upper lobe biopsies which demonstrated few noncaseating granulomas with scattered clusters of multinucleated giant cells special stains were negative for AFB and GMS. BAL was negative for malignancy.: Right upper lobe BAL: Side is pins and cell block: Negative for malignancy. I spoke to the . Patient was recently admitted to [facility] for 26 days. She was discharged to [facility] on 07/04/2025. During this hospitalization she had the above-mentioned cervical neck operation. In addition she had an abnormal CT scan with upper lobe infiltrates and high calcium levels. Patient was seen by the Pulmonary team and she underwent biopsy. After the biopsy the Pulmonary team told the that she had sarcoid and that she required prednisone 10 mg a day to control her calcium. The says that the patient never had respiratory distress but did have high carbon dioxide and she was transferred to the ICU for few days and required BiPAP mask treatment. After a few days she was transferred out of the ICU and did not wear the BiPAP any longer. The patient was discharged to [facility] on 2 L nasal cannula and the family was not told that she needed a BiPAP machine. The patient was supposed to be on prednisone 10 mg a day. On 06/26/2025 the patient had a posterior cervical decompression with fusion of C2-C6 at [facility]. 07/07/2025: Patient presented to the emergency room after a fall on blood thinners. Blood pressure 98/53, heart rate 86, respirations 26, room air saturations 100%. She was reported as somnolent. White blood cell count 8.5, creatinine 0.86, COVID influenza RSV RT PCR assay negative. Urinalysis demonstrated 3+ leukocyte esterase, positive nitrates, 4+ bacteria, greater than [address] scan of the chest showed bilateral right upper lobe greater than left upper lobe homogeneous reticulations with nodular infiltrates, small bilateral pleural effusions left greater than right, no change in her upper lobe or lower lobe mosaic attenuation from 12/21/2024. Patient was treated with ceftriaxone, azithromycin and IV Lasix. Her Xarelto was held. 07/08/2025: Patient was put on 2 L nasal cannula saturations 91-93%. 07/09/2025 patient's urine demonstrated pansensitive E coli. 07/10/2025: Patient had altered mental status and was more somnolent and an ABG on 2 L nasal cannula 7.32/77.7/105. White blood cell count was 8.9, creatinine was 0.63. BNP was 3860, CRP was 2.6, procalcitonin was 0.1. Patient was empirically started on Rate of 14, BiPAP 15/5 and then had hypoxia and her settings were changed to a rate of 14, 18/8 and 70% FiO2. When I enter the room the patient was on BiPAP rate of 14, breathing 20 1 times a minute, pressures 18/8 with tidal volumes 375-425, minute ventilation 7.1, inspiratory time 0.8, rise of 5 and 70% FiO2 with 100% saturations. Patient would arouse to loud verbal commands, deep pain in all 4 extremities she would withdraw but she would not say her name. She would mumble but not follow any verbal commands. DATA: 07/07/25: EXAMINATION: CT chest abdomen pelvis w con INDICATION: Fall. COMPARISON: Chest CT 12/21/2024 FINDINGS: CHEST CT: The lungs demonstrate smooth septal thickening. There are airspace opacities and nodules in the upper lobes. There are airspace opacities in left lower lobe. There is mild atelectasis in right lower lobe. A calcified right lung nodule is consistent with old granulomatous disease. There are small pleural effusions. The heart size is normal. There are changes of mitral valve replacement. There are coronary artery calcifications. No pericardial effusion. There is a total right shoulder arthroplasty. There are changes of anterior fusion procedure in cervical spine. There is moderate thoracic spondylosis. There is mild chronic anterior wedging of multiple vertebral bodies. ABDOMEN/PELVIS CT: The liver, gallbladder, spleen, pancreas, and adrenal glands are normal. There is cortical thinning of the kidneys. There is a 12 mm cyst in left kidney. There is wall thickening of the rectosigmoid. The appendix is normal. There are no dilated loops of bowel. There are no pathologically enlarged lymph nodes. There is no free intraperitoneal fluid. There is a benign bone island in the right femur. There is severe thoracic spondylosis. IMPRESSION: 1. Diffuse lung disease, likely a combination of pneumonia in the upper lobes and left lower lobe and mild pulmonary edema. 2. Small pleural effusions. 3. Colitis involving the rectosigmoid. 06/12/2025: Right upper lobe BAL: Side is pins and cell block: Negative for malignancy. Clinical Diagnosis and history. This is a 75-year-old woman with a history of COPD, coronary artery disease, chronic anemia who presented with neck pain and generalized weakness. CT chest numerous upper lobe nodules, concerning for sarcoidosis. 06/12/2025 lung, right upper lobe, biopsy: Few noncaseating granulomas and multinucleated giant cells. Microscopic description: Microscopic evaluation shows scant fragments of lung and bronchial tissue with few noncaseating granulomas and scattered clusters of multinucleated giant cells. Special stains for AFB and GMS are performed and are negative for acid-fast bacilli and fungal organisms, respectively. The staining controls are appropriately reactive. 12/21/24: EXAMINATION: CTA chest PE protocol INDICATION: Shortness of breath and hypoxia COMPARISON: 11/20/2022 and 08/26/2022 FINDINGS/OBSERVATIONS: PULMONARY ARTERIES: No filling defect is identified within the main or proximal pulmonary artery. The main pulmonary artery is not enlarged. THORACIC AORTA: No aneurysmal dilatation or dissection is present. The great vessels are intact LUNGS: Patchy groundglass opacification detected bilaterally, with a bilateral upper lobe distribution. MEDIASTINUM: No morphologically suspicious or pathologically enlarged lymph nodes are identified within the mediastinum or bilateral axilla. BONES OF THE CHEST: No acute fracture. No significant degenerative disease. No lytic or blastic lesions. Sternal wires are present. HEART: The heart is of normal size, without pericardial effusion. IMPRESSION: No pulmonary embolus. No thoracic aortic dissection. Patchy groundglass opacification with a bilateral upper lobe distribution. 01/07/2023: This is a pulmonary function test with pre and post-bronchodilator spirometry, plethysmography and diffusing capacity. The test was performed and results interpreted in accordance with the 2019 and 2005 ATS/ERS Task Force guidelines respectively using the Global Lung Function Initiative-2012 reference equations. Patient demonstrated good effort and cooperation. Reproducibility criteria were met. The quality of the pre bronchodilator spirometry maneuver was Grade A and post bronchodilator spirometry maneuver was Grade A. Findings: Spirometry: There is decreased maximal expiratory airflow at low lung volumes with concave expiratory flow tracing. The contour the inspiratory flow tracing is normal. The pre bronchodilator FVC was 1.09 L, 40% predicted. The pre bronchodilator FEV1 is 0.74 L, 35% predicted. The pre bronchodilator FEV1: FVC ratio is 68%. The post bronchodilator FVC is 1.12 L, representing a 2% increase. The post bronchodilator FEV1 is 0.74 L, representing is no change. The post bronchodilator FVC: FVC ratio 67%. Plethysmography: The total lung capacity is 3.22 L, 66% predicted. The functional residual capacity is 2.18 L, 78% predicted. The residual volume is 2.07 L, 97% predicted. Diffusing capacity: The diffusing capacity unadjusted for hemoglobin and carboxyhemoglobin is 9.3, 46% predicted. The diffusing capacity adjusted for alveolar volume is 4.47, 103% predicted. Impression: There is a combined obstructive and restrictive ventilatory abnormality. There are no guidelines to assign the severity of obstruction and restriction with a combined abnormality. In my opinion, given the moderately concave expiratory flow tracing and normal FEV1: FVC ratio and moderate restrictive abnormality I would state there is a mild obstructive abnormality and a moderate restrictive abnormality resulting in a severely decreased FEV1. There is no significant improvement after inhaling a single dose of albuterol. The diffusing capacity unadjusted for hemoglobin and carboxyhemoglobin is moderately decreased and normalizes when adjusted for alveolar volume. There are no prior studies for comparison 11/24/2022 Home O2 assessment - Patient requires no oxygen at rest and 4 with exercise. She had a negative PATRICIA panel in 2021. Echo 11/21/22 ? Summary 1. Complete two-dimensional, color flow and Doppler transthoracic echocardiogram is performed. 2. Left ventricular chamber dimension is normal. 3. Left ventricular systolic function is normal, estimated at 60-65%. 4. There is moderate concentric increased left ventricular wall thickness. 5. The left ventricular diastolic function is abnormal. 6. E/e' 28 is elevated. 7. Left atrial chamber dimension is moderately enlarged. 8. There is mild aortic valve sclerosis. 9. The mitral valve has mildly calcified leaflets and moderately calcified annulus. 10. There is trace mitral valve regurgitation. 11. There is mild tricuspid valve regurgitation. 12. Moderate pulmonary hypertension, estimated pulmonary arterial systolic pressure is 59 mmHg. 13. There is trace pulmonic regurgitation. 14. Dilated inferior vena cava with >50% collapse upon inspiration consistent with elevated right atrial pressure, 10 mmHg. 11/20/2022: EXAMINATION: CTA chest PE protocol INDICATION: Dyspnea. Recently treated for pneumonia. COMPARISON: 11/20/2022 2 view chest 08/26/2022 CT pulmonary scan FINDINGS: There is diagnostic contrast enhancement of the pulmonary arteries and no evidence of pulmonary embolism. There is old pulmonary granulomatous disease. Status post sternotomy and mitral valve replacement. Normal heart size. No thoracic aortic aneurysm. No hilar or mediastinal mass lesion or lymphadenopathy. There is patchy groundglass densities scattered throughout both lungs which may be due to small airways disease, atelectasis and/or pneumonia. Postoperative change of the lower cervical spine. Degenerative spurring of the thoracic spine. Right glenohumeral arthroplasty. IMPRESSION: No evidence of pulmonary embolus Scattered patchy groundglass infiltrates throughout both lungs which may be due to small airways disease, atelectasis and/or pneumonia 08/26/2022: EXAMINATION: CTA chest PE protocol DATE: 08/26/2022 11:23 INDICATION: Shortness of breath and hypoxia TECHNIQUE: Computed tomography angiography (CTA) of the chest was performed with 100 mL Omnipaque-350 intravenous contrast timed to evaluate the pulmonary arteries. Coronal maximum intensity projection 3D-reconstructions were created by the technologist. The dose-length product (DLP) was 621.73 mGy-cm. Automated exposure control and iterative reconstruction technique were employed. COMPARISON: 06/26/2019 FINDINGS: The pulmonary arteries are well-opacified. No pulmonary embolism is identified. There are airspace opacities of the lung apices. Chronic areas of air-trapping are noted throughout the lungs. No pleural effusion or pneumothorax. There are changes of coronary artery bypass grafting and mitral valve surgery. No pathologically enlarged thoracic lymph nodes are identified. The heart size is normal. There is moderate thoracic spondylosis. IMPRESSION: 1. No pulmonary embolus identified. 2. Minimal airspace opacities of the lung apices, likely infection/inflammation. 06/26/2019:EXAMINATION: CTA CHEST (PULMONARY ART) DATE: 06/26/2019 10:03 INDICATION: Shortness of breath. Hypoxia. Subtherapeutic INR. COMPARISON: 06/24/2019 2 view chest 12/21/2017 CTA chest FINDINGS: There is diagnostic contrast enhancement the pulmonary arteries and no evidence of pulmonary embolism. Normal heart size. Mitral valve replacement and sternotomy are noted. No thoracic aortic aneurysm or dissection. No hilar or mediastinal mass lesion or lymphadenopathy. There is right upper lobe patchy infiltrate. There are couple of areas of left lower lobe tree-in-bud infiltrate. Status post lower anterior cervical spine surgical fusion. There is degenerative disease of the cervical spine and diffuse idiopathic skeletal hyperostosis of the thoracic spine. IMPRESSION: No evidence of pulmonary embolism. Patchy right upper lobe and left lower lobe infiltrates 04/18/2010: CT chest without contrast History: Shortness of breath Technique: 5 mm slices in the axial plane and 1.25 mm high resolution slices. Comparison: CT from 01/24/10 Findings: The groundglass opacities in the lungs have substantially improved. Mild nodularity is present in the periphery of the lungs. The nodules are most numerous in the right middle lobe hand are centrilobular in distribution. The airways are patent. A calcified granuloma is present in the right lower lobe. Right hilar calcified lymph nodes are present. The heart size and aortic caliber are normal. Pulmonary vascularity is normal. No pneumothorax or plural effusions are present. The lymph nodes are subcentimeter. Degenerative changes are present in the cervical and thoracic spine. No interstitial thickeing or architectural distortion is present in the high resolution images. Impression: 1. Substantially improved bilateral airspace opacities. Bronchiolitis which is relatively greatest in the periphery of the right middle lobe. 12/21/2017: EXAMINATION: CTA CHEST (AORTA) NON CORONARY DATE: 12/21/17 INDICATION: Upper back pain. TECHNIQUE: Computed tomographic angiography (CTA) of the chest was performed without and with 100 mL Omnipaque-350 intravenous contrast. Volume-rendered 3D-reconstructions of the aorta and large arteries were constructed by the technologist on a separate workstation. Automated exposure control and iterative reconstruction technique were employed. The dose-length product was 586 mGy-cm. COMPARISON: None. FINDINGS: No mosaic attenuation in the lungs with similar appearance to the pulmonary vasculature in both the more dense and lucent regions of the lung which would favor air trapping and small artery disease over small vessel disease. Calcified nodule in the super segment of the right lower lobe and calcified right hilar lymph node consistent with old granulomatous disease. No pneumonia, pulmonary edema, pleural effusion or pneumothorax. No pulmonary embolism. Heart size is normal. Postoperative changes of prior median sternotomy with both coronary artery bypass grafting and mitral valve repair. No pericardial effusion. Thoracic aorta is normal in caliber with no dissection. No pathologically enlarged thoracic lymphadenopathy. Mild wall thickening the distal esophagus which could be seen with esophagitis. Anterior spinal fusion with anterior plate and screw fixation at C5-C6. Incompletely visualized right total shoulder arthroplasty. Moderate thoracic spondylosis with stable appearance of mild anterior wedging of several mid-lower thoracic vertebral bodies. IMPRESSION: 1. No acute cardiopulmonary disease or acute osseous abnormality. Specifically no aortic aneurysm or dissection. 2. Mild wall thickening in the distal esophagus which could be seen with esophagitis. 3. Mosaic attenuation in both lungs consistent with small airway disease and mild subsegmental air trapping. 4. Postoperative changes of prior median sternotomy, coronary artery bypass grafting, mitral valve repair, 11/30/2013: CT CHEST HIGH RESOLUTION W/O INDICATION: Shortness of breath, pulmonary hypertension. TECHNIQUE: Spiral CT of the chest was performed without intravenous contrast. Axial, coronal and sagittal images were reviewed. HRCT obtained. The exam was reviewed on 11/30/13. Correlation was made with pulmonary CT same date. FINDINGS: HRCT demonstrates no interlobular septal thickening to suggest interstitial lung disease. Interval improvement in the bilateral groundglass opacities involving all lobes with perihilar distribution, characteristic for pulmonary edema. There are smaller patchy more confluent opacifications in the right infrahilar region. Can't exclude pneumonia for these opacities. Pulmonary arteries are within normal size limits. Tracheobronchial tree is patent. There is no mediastinal, hilar or axillary lymphadenopathy. Again there is small pleural effusions. There is no pneumothorax. Heart normal in size. Upper abdomen is unremarkable. Mild thoracic spondylosis. There are no osteoblastic or osteolytic lesions identified. IMPRESSION: 1. Improving bilateral perihilar opacities, more likely pulmonary edema than infection. 2. Small bilateral pleural effusions, unchanged. 01/24/2010: CT scan of the chest. INDICATION: Shortness of breath TECHNIQUE: Routine contrast enhanced pulmonary CTA COMPARISON: Chest x-ray dated 01/24/10 FINDINGS: No thoracic lymph node enlargement. No pleural or pericardial abnormality's. No endobronchial lesions. Heart size normal. Normal filling of the pulmonary arteries with contrast without evidence for pulmonary embolism. Sequela of prior granulomatous infection noted in the lisa and right lower lobe. Bibasilar dependent atelectasis. Patchy bilateral groundglass opacities are identified. No suspicious pulmonary nodules or masses. IMPRESSION: 1: Patchy bilateral groundglass opacities are identified involving all lobes. Differential diagnosis includes atypical pneumonia (viral pneumonia and PCP) , chronic infiltrative lung disease (bronchiolitis, nonspecific interstitial pneumonitis, DIP ), acute airspace disease (pulmonary edema, hypersensitivity pneumonitis, eosinophilic pneumonia). Less likely considerations include bronchioloalveolar cell carcinoma. 2: No evidence for pulmonary embolism. Review of Systems Review of Systems: ROS unobtainable: Yes unobtainable due to medical condition and unobtainable due to mental status [facility] Past Medical History Medical History Preop cardiovascular exam Chronic obstructive pulmonary disease, unspecified Hard of hearing Eustachian tube dysfunction Cubital tunnel syndrome on right Pulmonary hypertension Chronic idiopathic myocarditis Restless leg syndrome 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 Chronic respiratory failure with hypoxia, on home oxygen therapy Transient ischemic attack Chronic hyponatremia Venous insufficiency Iron deficiency anemia Polymyalgia rheumatica Small vessel disease, cerebrovascular Chronic anticoagulation Paroxysmal atrial fibrillation Coronary artery disease Microscopic colitis Chronic diarrhea Exocrine pancreatic insufficiency COVID-19 Cervical arthritis Pneumonia Dyslipidemia Essential hypertension Gastro-esophageal reflux disease without esophagitis Multifocal atrial tachycardia Surgical History Surgical History History of heart artery stent History of cardiac catheterization History of bilateral knee replacement History of bilateral carpal tunnel release History of colonoscopy with polypectomy History of coronary artery bypass graft x 2 (12/2013) History of Achilles tendon repair History of spinal surgery Lumbar micro discectomy infusion. History of mitral valve repair History of shoulder surgery History of cataract extraction Left History of hand surgery trigger finger, thumb Family History Family History Mother Cerebrovascular accident Family history of diabetes mellitus in first degree relative Family history of coronary artery disease Acute myocardial infarction Diabetes mellitus Father Carcinoma of colon Family history of lung cancer Family history of malignant neoplasm of esophagus Sibling Liver disease Liver transplant recipient Other Family history of malignant neoplasm of brain Family history of malignant neoplasm of stomach Social History Social History Social History: Surrogate medical decision maker: Filippo Clifford, spouse. Code status: Full code. Smoking status: Never smoker Second hand tobacco smoke exposure: Yes Alcohol intake: unknown Drinks per week: 1 Alcohol use details: Rare alcohol use in moderation. Substance use: unknown Substance use type: does not use Do You Feel Safe in your Home?: Yes Lack of Transportation: No Lack of Food: Never True Current Housing: I Have Housing Concerned About Future Housing: No Difficulty Paying Gas/Electric Bills: No Difficulty Paying for Meds: No Currently Unemployed: No Education: Decline to Answer Difficulty w/ Childcare or Family Care: No Living arrangements: with family Additional living arrangements comments: Lives in [place] spouse. Occupation/Education: retired Additional occupation/education comments: Worked in [employer]. Spiritual care concerns: No Meds Home Medications and Allergies Home Medications ?Medication ?Instructions ?Recorded ?Confirmed ?Type arformoterol 15 mcg/2 mL solution See Rx Instructions .Route 06/16/24 07/07/25 Rx for nebulization .COMPLEX #30 ea evolocumab 140 mg/mL subcutaneous 140 mg subcut .every 2 weeks #2 mL 11/10/24 07/07/25 Rx pen injector (Repathkrys Alvaradoick) metoprolol tartrate 25 mg tablet See Rx Instructions .Route 01/05/25 07/07/25 Rx .COMPLEX #180 tabs rivaroxaban 20 mg tablet (Xarelto) See Rx Instructions .Route 01/10/25 07/07/25 Rx .COMPLEX #30 tabs furosemide 40 mg tablet See Rx Instructions .Route 02/13/25 07/07/25 Rx .COMPLEX #90 tabs pravastatin 10 mg tablet See Rx Instructions .Route 03/07/25 07/07/25 Rx .COMPLEX #90 tabs pramipexole 0.5 mg tablet 0.5 mg PO HS #90 tabs 03/19/25 07/07/25 Rx pantoprazole 40 mg tablet,delayed 40 mg PO QAM #90 tabs 04/02/25 07/07/25 Rx release sotalol 80 mg tablet 80 mg PO Q12H 04/27/25 07/07/25 History metformin 500 mg tablet,extended 1,000 mg (2 x 500 mg) PO QPM #90 05/22/25 07/07/25 Rx release 24 hr tabs cholecalciferol (vitamin D3) 25 25 mcg PO DAILY 07/07/25 07/07/25 History mcg (1,000 unit) capsule (Vitamin D3) insulin glargine 100 unit/mL 10 unit subcut DAILY 07/07/25 07/07/25 History subcutaneous solution (Lantus U-100 Insulin) insulin lispro 100 unit/mL 5 unit subcut TID 07/07/25 07/07/25 History subcutaneous solution (Humalog U-100 Insulin) losartan 25 mg tablet 25 mg PO DAILY 07/07/25 07/07/25 History magnesium oxide 250 mg PO DAILY 07/07/25 07/07/25 History methocarbamol 500 mg tablet 500 mg PO Q8H PRN muscle spasms 07/07/25 07/07/25 History potassium chloride 10 mEq oral 20 meq PO DAILY 07/07/25 07/07/25 History packet (Pokonza) Allergies Allergy/AdvReac Type Severity Reaction Status Date / Time ciprofloxacin Allergy Mild Unknown Verified 07/07/25 13:13 codeine Allergy Mild Vomiting Verified 07/07/25 13:13 levofloxacin Allergy Unknown Unknown Verified 07/07/25 13:13 lisinopril Allergy Unknown Unknown Verified 07/07/25 13:13 amoxicillin (From Augmentin) AdvReac Severe Confusion Verified 07/07/25 13:13 clavulanic acid (From AdvReac Severe Confusion Verified 07/07/25 13:13 Augmentin) tramadol AdvReac Mild Vomiting Verified 07/07/25 13:13 Vital Signs Vital Signs - 24 hr 07/09/25 14:00 07/09/25 20:00 07/09/25 20:52 Temperature 36.0 C L Pulse Rate 86 76 Respiratory Rate 18 Blood Pressure 118/74 Pulse Oximetry 96 97 Oxygen Delivery Nasal Cannula Oxygen Flow Rate 2 07/09/25 20:53 07/09/25 21:32 07/10/25 05:15 Temperature 36.2 C L 36.7 C Pulse Rate 76 76 80 Respiratory Rate 16 16 Blood Pressure 104/70 132/73 Pulse Oximetry 100 97 Oxygen Delivery Oxygen Flow Rate 07/10/25 08:00 07/10/25 10:05 Temperature Pulse Rate Respiratory Rate 29 H Blood Pressure Pulse Oximetry 94 Oxygen Delivery Nasal Cannula BiPAP Oxygen Flow Rate 2 Exam Const: General: comfortable and no acute distress Other: patient is on BiPAP, she opens her eyes and withdraws to deep painful stimuli 0 4 extremities, she is to not follow any verbal commands. HENMT: Head: normal to inspection Ears: hearing grossly normal bilaterally Eyes: General: appearance normal, both eyes and all related structures Neck: Neck: normal visual inspection Chest: Chest palpation & inspection: normal inspection of the chest Resp: Effort & Inspection: normal respiratory effort and able to speak in complete sentences Auscultation: crackles, no rales, no rhonchi, no wheezes and lung sounds not diminished Other: Few crackles, no wheezes. Cardio: Jugular venous distension: no JVD GI: Inspection: normal to inspection GI Palp: No abdominal tenderness Skin: General skin exam: normal color Neuro: Other: patient is on BiPAP, she opens her eyes and withdraws to deep painful stimuli 0 4 extremities, she is to not follow any verbal commands. Extrem: General: normal to inspection Psych: Appearance: grossly normal Results Laboratory Findings 07/10/25 10:19 07/10/25 10:19 ABG, PT/INR, D-dimer: ABG ABG pH 7.318 (7.350-7.450) L 07/10/25 09:08 ABG pCO2 77.7 mmHg (35.0-45.0) H* 07/10/25 09:08 ABG pO2 104.6 mmHg (80.0-100.0) H 07/10/25 09:08 ABG O2 Saturation 97.1 % (95.0-100.0) 07/10/25 09:08 Abnormal lab findings: Abnormal Labs 07/07/25 07/07/25 07/07/25 05:48 05:57 11:39 RBC 3.35 L Hgb 9.5 L Hct 31.4 L MCHC 30.3 L RDW 19.8 H MPV 11.1 H Immature Gran % (Auto) 0.9 H Neut % (Auto) Lymph % (Auto) 14.1 L [place] % (Auto) 9.2 H Eos % (Auto) Lymph # (Auto) [place] # (Auto) 0.8 H Eos # (Auto) Abs Immat Gran (auto) 0.08 H Absolute Neuts (auto) ESR ABG pH ABG pCO2 ABG pO2 ABG HCO3 ABG O2 Content Total Hemoglobin Sodium 132 L Potassium 3.2 L Chloride 92 L Carbon Dioxide 37 H Anion Gap 3 L BUN 25 H Creatinine Glucose 128 H POC Capillary Glucose 123 H Magnesium Alkaline Phosphatase 136 H C-Reactive Protein Total Protein 6.0 L Albumin 3.1 L Urine Protein 1+ H Urine Nitrate Positive H Leukocyte Esterase Rfl 3+ H Urine WBC >100 H Urine Bacteria 4+ H 07/07/25 07/08/25 07/08/25 16:54 07:00 07:50 RBC 3.41 L Hgb 9.6 L Hct 32.3 L MCHC 29.7 L RDW 19.6 H MPV 11.0 H Immature Gran % (Auto) 1.1 H Neut % (Auto) 76.6 H Lymph % (Auto) 8.4 L [place] % (Auto) 8.8 H Eos % (Auto) 4.5 H Lymph # (Auto) 0.72 L [place] # (Auto) 0.8 H Eos # (Auto) 0.4 H Abs Immat Gran (auto) 0.09 H Absolute Neuts (auto) ESR ABG pH ABG pCO2 ABG pO2 ABG HCO3 ABG O2 Content Total Hemoglobin Sodium 134 L Potassium 3.3 L Chloride 93 L Carbon Dioxide 38 H Anion Gap 3 L BUN 20 H Creatinine Glucose 140 H POC Capillary Glucose 137 H 157 H Magnesium Alkaline Phosphatase C-Reactive Protein Total Protein Albumin Urine Protein Urine Nitrate Leukocyte Esterase Rfl Urine WBC Urine Bacteria 07/08/25 07/08/25 07/08/25 11:16 17:01 20:00 RBC Hgb Hct MCHC RDW MPV Immature Gran % (Auto) Neut % (Auto) Lymph % (Auto) [place] % (Auto) Eos % (Auto) Lymph # (Auto) [place] # (Auto) Eos # (Auto) Abs Immat Gran (auto) Absolute Neuts (auto) ESR ABG pH ABG pCO2 ABG pO2 ABG HCO3 ABG O2 Content Total Hemoglobin Sodium Potassium Chloride Carbon Dioxide Anion Gap BUN Creatinine Glucose POC Capillary Glucose 311 H 110 H 254 H Magnesium Alkaline Phosphatase C-Reactive Protein Total Protein Albumin Urine Protein Urine Nitrate Leukocyte Esterase Rfl Urine WBC Urine Bacteria 07/09/25 07/09/25 07/09/25 07:25 10:41 11:29 RBC 3.76 L Hgb 10.8 L Hct 35.6 L MCHC 30.3 L RDW 19.7 H MPV 11.6 H Immature Gran % (Auto) 1.0 H Neut % (Auto) 78.4 H Lymph % (Auto) 8.3 L [place] % (Auto) 8.7 H Eos % (Auto) Lymph # (Auto) 0.83 L [place] # (Auto) 0.9 H Eos # (Auto) Abs Immat Gran (auto) 0.10 H Absolute Neuts (auto) 7.8 H ESR ABG pH ABG pCO2 ABG pO2 ABG HCO3 ABG O2 Content Total Hemoglobin Sodium 131 L Potassium Chloride 92 L Carbon Dioxide 34 H Anion Gap BUN 25 H Creatinine 0.64 L Glucose 194 H POC Capillary Glucose 158 H 195 H Magnesium 1.1 L Alkaline Phosphatase C-Reactive Protein 2.7 H Total Protein Albumin Urine Protein Urine Nitrate Leukocyte Esterase Rfl Urine WBC Urine Bacteria 07/09/25 07/09/25 07/09/25 11:38 16:24 22:09 RBC Hgb Hct MCHC RDW MPV Immature Gran % (Auto) Neut % (Auto) Lymph % (Auto) [place] % (Auto) Eos % (Auto) Lymph # (Auto) [place] # (Auto) Eos # (Auto) Abs Immat Gran (auto) Absolute Neuts (auto) ESR 71 H ABG pH ABG pCO2 ABG pO2 ABG HCO3 ABG O2 Content Total Hemoglobin Sodium Potassium Chloride Carbon Dioxide Anion Gap BUN Creatinine Glucose POC Capillary Glucose 167 H 181 H Magnesium Alkaline Phosphatase C-Reactive Protein Total Protein Albumin Urine Protein Urine Nitrate Leukocyte Esterase Rfl Urine WBC Urine Bacteria 07/10/25 07/10/25 07/10/25 07:32 09:08 10:19 RBC 3.31 L Hgb 9.3 L Hct 31.8 L MCHC 29.2 L RDW 19.3 H MPV 11.1 H Immature Gran % (Auto) Neut % (Auto) Lymph % (Auto) [place] % (Auto) Eos % (Auto) Lymph # (Auto) [place] # (Auto) Eos # (Auto) Abs Immat Gran (auto) Absolute Neuts (auto) ESR ABG pH 7.318 L ABG pCO2 77.7 H* ABG pO2 104.6 H ABG HCO3 39.0 H ABG O2 Content 13.9 L Total Hemoglobin 10.2 L Sodium Potassium Chloride Carbon Dioxide Anion Gap BUN Creatinine Glucose POC Capillary Glucose 172 H Magnesium Alkaline Phosphatase C-Reactive Protein Total Protein Albumin Urine Protein Urine Nitrate Leukocyte Esterase Rfl Urine WBC Urine Bacteria Diagnostic Findings Additional studies: ITS Impressions Cervical Spine CT 07/07/25 06:30 IMPRESSION: HEAD: 1. No acute intracranial findings. 2. Bilateral mastoiditis. C-SPINE: 1. No acute fracture. 2. Ill-defined fluid and postoperative changes posterior to upper cervical spine. 3. Extensive bilateral upper lung airspace disease, and left pleural effusion. Head CT 07/07/25 06:30 IMPRESSION: HEAD: 1. No acute intracranial findings. 2. Bilateral mastoiditis. C-SPINE: 1. No acute fracture. 2. Ill-defined fluid and postoperative changes posterior to upper cervical spine. 3. Extensive bilateral upper lung airspace disease, and left pleural effusion. Chest/Abdomen/Pelvis CT 07/07/25 07:13 IMPRESSION: 1. Diffuse lung disease, likely a combination of pneumonia in the upper lobes and left lower lobe and mild pulmonary edema. 2. Small pleural effusions. 3. Colitis involving the rectosigmoid. Chest X-Ray 07/08/25 12:31 IMPRESSION: 1. Interstitial and airspace opacities throughout both lungs mild pulmonary edema, pneumonia or combination of both. 2. Very small bilateral pleural effusions. Chest X-Ray 07/10/25 09:56 Impression: CHF. Superimposed pneumonia suspected
[2025-07-10 11:18] LABS: Anion Gap 3 mmol/L (4-12); Blood Urea Nitrogen 28 mg/dL (7-17); CRP 2.6 mg/dL (<1.0); Calcium 8.9 mg/dL (8.4-10.2); Carbon Dioxide 35 mmol/L (22-30); Chloride 94 mmol/L (98-107); Estimated CRCL calculation 63 ml/min; Estimated Glomerular Filt Rate > 60; Glucose 180 mg/dL (65-110); Magnesium 1.7 mg/dL (1.6-2.3); NT Pro B Type Natriuretic Pept 3860 pg/mL (19.9-100); Potassium 3.7 mmol/L (3.4-5.0); Sodium 132 mmol/L (137-145)
--- NOTE | 2025-07-10 12:57 | PM.CNCAR ---
Assessment and Plan Assessment and plan (1) Paroxysmal atrial fibrillation: Code(s): I48.0 - Paroxysmal atrial fibrillation Status: Chronic Assessment and Plan: In Sinus rhythm with intermittent short runs of atrial tachycardia. On Sotalol 80 mg BID and on Xarelto normally. On Metoprolol prn for tachycardia. No further cardiac workup. Will sign off, please call with any questions. (2) Essential hypertension: Code(s): I10 - Essential (primary) hypertension Status: Acute Assessment and Plan: Stable. (3) Dyslipidemia: Code(s): E78.5 - Hyperlipidemia, unspecified Status: Acute Assessment and Plan: On Pravastatin. 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 (5) Chronic obstructive pulmonary disease, unspecified: Code(s): J44.9 - Chronic obstructive pulmonary disease, unspecified Status: Acute (6) Pneumonia: Code(s): J18.9 - Pneumonia, unspecified organism Status: Acute Assessment and Plan: On antibiotics as per hospitalist. (7) UTI (urinary tract infection): Code(s): N39.0 - Urinary tract infection, site not specified Status: Acute Assessment and Plan: On antibiotics as per hospitalist. History of Present Illness History of Present Illness Consult date/time: 07/10/25 12:57 Reason For Visit: PNA/UTI Narrative: 75 yr old woman who is my regular cardiology patient presents to hospital due to mental status changes and found to have pneumonia and UTI. She has a history of PAF, PAT, dyslipidemia (intolerant of Vascepa causing sob), CAD/CABG and MV repair, COPD, she had symptoms of Covid in Aug 2020 while in [place]. Reason for consult is to manage atrial fibrillation. Patient is currently resting on CPAP and eyes open, arousable. History comes from records stating she was found down in shelter, had recent fall and had cervical fracture and had surgery for it at [facility]. She was discharged to shelter and had mental status changes. She was previously on oxygen at 4 l/m only with activity. Previously, stated she had weakness to both legs due to arthritis of lower back and possibly PMR in Oct 2021 and can walk short distances. . 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 12/01/13 Cardiac cath: PCI with TARA to OM1 for NSTEMI. Echo/MUGA:: 11/21/22 Echo: EF 60-65%, diastolic dysfunction (E/e '28), mod LAE, mod MAC, trace MR/PI, mild TR, RVSP 59 mmHg. 06/12/22 Echo: EF 60-65%, mild LAE, mitral valve repair, mod MAC, mod MV calcifications, consider mod MS(1.1 cm2), trace MR. 06/25/19 Echo EF 65%, diastolic dysfunction (E/e' 35), mild LAE, mod MAC, trace TR, evidence of mitral valve repair. Electrophysiology:: 05/05/24 EKG: Sinus tachycardia at 104 bpm, PAC, IRBBB, QTc 402 ms. 05/08/23 EKG: Sinus tachycardia at 107 bpm, PAC, IRBBB, low voltage in precordial leads. 12/09/22 EKG: Sinus tachycardia at 104 bpm, PAC's, IRBBB, QTc 397 ms. 11/21/22 EKG: Sinus tachycardia at 108 bpm, PAC and PVC. 01/03/22 EKG: Sinus rhythm at 72 bpm with frequent PAC's, QTc 391 ms. 03/09/21 EKG: Sinus rhythm at 62 bpm. 01/15/21 EKG: Sinus rhythm at 86 bpm, supraventricular bigeminy, QTc 409 ms. 06/07/20 EKG: Sinus tachycardia at 102 bpm, PAC, QTc 388 ms. 07/05/19 EKG: Sinus rhythm at 86 bpm, QTc 389 ms. 12/31/18 EKG: Sinus rhythm at 84 bpm, first degree AV block, QTc 404 ms. 06/29/17 EKG: MAT at 113 bpm, QTc 392 ms. Stress Tests:: 06/12/22 Lexiscan myoview: negative for ischemia. 09/18/15 Lexiscan myoview: Negative for ischemia. 12/22/24 CTA chest: No pulm embolism. Patchy groundglass opacity of bilateral upper lobes. 05/08/23 Venous duplex: NO DVT of both legs. Review of Systems Review of Systems: ROS unobtainable: Yes unobtainable due to mental status [facility] Past Medical History Medical History Preop cardiovascular exam Chronic obstructive pulmonary disease, unspecified Hard of hearing Eustachian tube dysfunction Cubital tunnel syndrome on right Pulmonary hypertension Chronic idiopathic myocarditis Restless leg syndrome 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 Chronic respiratory failure with hypoxia, on home oxygen therapy Transient ischemic attack Chronic hyponatremia Venous insufficiency Iron deficiency anemia Polymyalgia rheumatica Small vessel disease, cerebrovascular Chronic anticoagulation Paroxysmal atrial fibrillation Coronary artery disease Microscopic colitis Chronic diarrhea Exocrine pancreatic insufficiency COVID-19 Cervical arthritis Pneumonia Dyslipidemia Essential hypertension Gastro-esophageal reflux disease without esophagitis Multifocal atrial tachycardia Surgical History Surgical History History of heart artery stent History of cardiac catheterization History of bilateral knee replacement History of bilateral carpal tunnel release History of colonoscopy with polypectomy History of coronary artery bypass graft x 2 (12/2013) History of Achilles tendon repair History of spinal surgery Lumbar micro discectomy infusion. History of mitral valve repair History of shoulder surgery History of cataract extraction Left History of hand surgery trigger finger, thumb Family History Family History Mother Cerebrovascular accident Family history of diabetes mellitus in first degree relative Family history of coronary artery disease Acute myocardial infarction Diabetes mellitus Father Carcinoma of colon Family history of lung cancer Family history of malignant neoplasm of esophagus Sibling Liver disease Liver transplant recipient Other Family history of malignant neoplasm of brain Family history of malignant neoplasm of stomach Social History Social History Social History: Surrogate medical decision maker: Filippo Clifford, spouse. Code status: Full code. Smoking status: Never smoker Second hand tobacco smoke exposure: Yes Alcohol intake: unknown Drinks per week: 1 Alcohol use details: Rare alcohol use in moderation. Substance use: unknown Substance use type: does not use Do You Feel Safe in your Home?: Yes Lack of Transportation: No Lack of Food: Never True Current Housing: I Have Housing Concerned About Future Housing: No Difficulty Paying Gas/Electric Bills: No Difficulty Paying for Meds: No Currently Unemployed: No Education: Decline to Answer Difficulty w/ Childcare or Family Care: No Living arrangements: with family Additional living arrangements comments: Lives in [place] spouse. Occupation/Education: retired Additional occupation/education comments: Worked in [employer]. Spiritual care concerns: No Meds Home Medications and Allergies Home Medications ?Medication ?Instructions ?Recorded ?Confirmed ?Type arformoterol 15 mcg/2 mL solution See Rx Instructions .Route 06/16/24 07/07/25 Rx for nebulization .COMPLEX #30 ea evolocumab 140 mg/mL subcutaneous 140 mg subcut .every 2 weeks #2 mL 11/10/24 07/07/25 Rx pen injector (Angelika Alvaradoick) metoprolol tartrate 25 mg tablet See Rx Instructions .Route 01/05/25 07/07/25 Rx .COMPLEX #180 tabs rivaroxaban 20 mg tablet (Xarelto) See Rx Instructions .Route 01/10/25 07/07/25 Rx .COMPLEX #30 tabs furosemide 40 mg tablet See Rx Instructions .Route 02/13/25 07/07/25 Rx .COMPLEX #90 tabs pravastatin 10 mg tablet See Rx Instructions .Route 03/07/25 07/07/25 Rx .COMPLEX #90 tabs pramipexole 0.5 mg tablet 0.5 mg PO HS #90 tabs 03/19/25 07/07/25 Rx pantoprazole 40 mg tablet,delayed 40 mg PO QAM #90 tabs 04/02/25 07/07/25 Rx release sotalol 80 mg tablet 80 mg PO Q12H 04/27/25 07/07/25 History metformin 500 mg tablet,extended 1,000 mg (2 x 500 mg) PO QPM #90 05/22/25 07/07/25 Rx release 24 hr tabs cholecalciferol (vitamin D3) 25 25 mcg PO DAILY 07/07/25 07/07/25 History mcg (1,000 unit) capsule (Vitamin D3) insulin glargine 100 unit/mL 10 unit subcut DAILY 07/07/25 07/07/25 History subcutaneous solution (Lantus U-100 Insulin) insulin lispro 100 unit/mL 5 unit subcut TID 07/07/25 07/07/25 History subcutaneous solution (Humalog U-100 Insulin) losartan 25 mg tablet 25 mg PO DAILY 07/07/25 07/07/25 History magnesium oxide 250 mg PO DAILY 07/07/25 07/07/25 History methocarbamol 500 mg tablet 500 mg PO Q8H PRN muscle spasms 07/07/25 07/07/25 History potassium chloride 10 mEq oral 20 meq PO DAILY 07/07/25 07/07/25 History packet (Pokonza) Allergies Allergy/AdvReac Type Severity Reaction Status Date / Time ciprofloxacin Allergy Mild Unknown Verified 07/07/25 13:13 codeine Allergy Mild Vomiting Verified 07/07/25 13:13 levofloxacin Allergy Unknown Unknown Verified 07/07/25 13:13 lisinopril Allergy Unknown Unknown Verified 07/07/25 13:13 amoxicillin (From Augmentin) AdvReac Severe Confusion Verified 07/07/25 13:13 clavulanic acid (From AdvReac Severe Confusion Verified 07/07/25 13:13 Augmentin) tramadol AdvReac Mild Vomiting Verified 07/07/25 13:13 Vital Signs Vital Signs - 24 hr 07/09/25 14:00 07/09/25 20:00 07/09/25 20:52 Temperature 96.8 F L Pulse Rate 86 76 Respiratory Rate 18 Blood Pressure 118/74 Pulse Oximetry 96 97 Oxygen Delivery Nasal Cannula Oxygen Flow Rate 2 07/09/25 20:53 07/09/25 21:32 07/10/25 05:15 Temperature 97.1 F L 98.0 F Pulse Rate 76 76 80 Respiratory Rate 16 16 Blood Pressure 104/70 132/73 Pulse Oximetry 100 97 Oxygen Delivery Oxygen Flow Rate 07/10/25 08:00 07/10/25 10:05 07/10/25 11:50 Temperature Pulse Rate 100 Respiratory Rate 29 H 26 H Blood Pressure Pulse Oximetry 94 99 Oxygen Delivery Nasal Cannula BiPAP BiPAP Oxygen Flow Rate 2 07/10/25 12:00 07/10/25 12:00 Temperature Pulse Rate 78 78 Respiratory Rate 30 H Blood Pressure Pulse Oximetry 91 Oxygen Delivery BiPAP Oxygen Flow Rate Exam Const: General: other (arousable on CPAP) Resp: Auscultation: no crackles, no rales, no rhonchi and no wheezes Cardio: Rate: regular rate Rhythm: regular rhythm Heart sounds: no murmurs Peripheral pulses: dorsalis pedis present GI: GI Palp: No abdominal tenderness and Yes Soft to palpation Extrem: Right lower extremity: no edema Left lower extremity: no edema Results Labs and Meds 07/10/25 10:19 07/10/25 10:19 Lab results: CBC 07/10/25 Range/Units 10:19 WBC 8.9 (4.5-10.0) K/mm3 RBC 3.31 L (4.2-5.4) M/mm3 Hgb 9.3 L (12.0-15.0) g/dL Hct 31.8 L (37.0-47.0) % Plt Count 302 (150-375) k/mm3 Comprehensive Metabolic Panel 07/10/25 Range/Units 10:19 Sodium 132 L (137-145) mmol/L Potassium 3.7 (3.4-5.0) mmol/L Chloride 94 L (98-107) mmol/L Carbon Dioxide 35 H (22-30) mmol/L BUN 28 H (7-17) mg/dL Creatinine 0.63 L (0.7-1.0) mg/dL Glucose 180 H (65-110) mg/dL Calcium 8.9 (8.4-10.2) mg/dL Intake and Output 07/09/25 07/10/25 07/10/25 23:59 07:59 15:59 Intake Total 415 550 0 Output Total 900 300 Balance -485 250 0 Intake: Oral 415 550 0 Output: Catheter Urine 900 300 External/Condom 900 300 Other: Number of Bowel Movements Today 2 Patient Weight 07/10/25 23:59 Weight 74.6 kg
[2025-07-10 13:42] LABS: Alveolar/Arterial O2 Gradient 115.6 mmHg; Fractional Inspired Oxygen 50 %; HCO3 ABG 39.8 mEq/l (22.0-26.0); Oxygen Content ABG 14.3 %vol (16.0-22.0); Oxygen Saturation ABG 98.7 % (95.0-100.0); PO2 ABG 152.4 mmHg (80.0-100.0); PO2 FiO2 Ratio Arterial Blood 3.05 %
--- NOTE | 2025-07-10 13:49 | P.PNIM_ITS ---
Progress Note: A&P Assessment and Plan (1) Fall: Code(s): W19.XXXA - Unspecified fall, initial encounter Status: Acute Assessment and Plan: Likely due to UTI and weakness PT OT evaluate and treat Treat underlying infections Fall precautions (2) UTI (urinary tract infection): Code(s): N39.0 - Urinary tract infection, site not specified Status: Acute Assessment and Plan: IV Rocephin Culture and sensitive pending No IV fluids due to pulmonary edema and pleural effusion (3) Pulmonary edema: Code(s): J81.1 - Chronic pulmonary edema Status: Acute Assessment and Plan: Patient likely has a history of CHF as she is on Lasix at home IV Lasix x1 Daily weight Fluid restriction (4) Pleural effusion: Code(s): J90 - Pleural effusion, not elsewhere classified Status: Acute Assessment and Plan: A.m. chest x-ray Changed PO 40mg Lasix to IV Follow creatinine (5) Pneumonia: Code(s): J18.9 - Pneumonia, unspecified organism Status: Acute Assessment and Plan: IV Rocephin and azithromycin Guaifenesin Incentive spirometer continue current antibiotics for now (6) Cervical spine fracture: Code(s): S12.9XXA - Fracture of neck, unspecified, initial encounter Status: Acute Assessment and Plan: From previous fall status post surgery Continue C-collar MoBap neuro surgery has privileges here Fluid collections seen on CT however Neurosurgery states that this is normal postop, patient has no neuro deficits Sarai has been on hold since 06/26. Restart if ok with neurosurgery. (7) Type 2 diabetes mellitus with diabetic nephropathy: Qualifiers: Diabetes mellitus terminal gauger insulin use: without terminal gauger use Qualified Code(s): E11.21 - Type 2 diabetes mellitus with diabetic nephropathy Code(s): E11.21 - Type 2 diabetes mellitus with diabetic nephropathy Status: Acute Assessment and Plan: Accu-Chepablo a.cYuval HS Low-dose insulin SSI and home Lantus 8 units daily (8) Colitis: Code(s): K52.9 - Noninfective gastroenteritis and colitis, unspecified Status: Acute Assessment and Plan: Chronic diarrhea. CT showed colitis involving the rectosigmoid. 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: Code(s): I25.719 - Atherosclerosis of autologous vein coronary artery bypass graft(s) with unspecified angina pectoris Status: Chronic Assessment and Plan: Continue losartan, metoprolol, pravastatin and s sotalol (10) Dyslipidemia: Code(s): E78.5 - Hyperlipidemia, unspecified Status: Acute Assessment and Plan: Continue statin (11) Pressure ulcer: Code(s): L89.90 - Pressure ulcer of unspecified site, unspecified stage Status: Acute Assessment and Plan: Stage III on coccyx and sacrum Wound care consulted No signs of infection (12) Acute and chronic respiratory failure: Code(s): J96.20 - Acute and chronic respiratory failure, unspecified whether with hypoxia or hypercapnia Status: Acute Assessment and Plan: reported that pt is somnolent this am abg ordered, BC, cbc, cmp, chest xray to wgyn for worsing of pnemonia - ABG on 2 L nasal cannula 7.32/77.7/105. White blood cell count was 8.9, creatinine was 0.63. BNP was 3860, CRP was 2.6, procalcitonin was 0.1. Patient was empirically started on rate of 14, BiPAP 15/5. Pulm consulted and pt was moved to IMU for close monitoring Time Spent With Patient Time with patient: Greater than 35 minutes Subjective Date/time seen: 07/10/25 13:49 Interval history: 75-year-old male cervical fracture status post surgery, diabetes, iron deficiency anemia, atrial fibrillation, CAD, hypertension and dyslipidemia presents the hospital after being found down at a long term. Patient had a recent fall where she had a cervical neck fracture and surgery at [facility]. She was discharged to the long term yesterday. HPI is limited because the patient has altered mental status. She has no complaints at this time. Review of Systems Review of Systems: 12 systems were reviewed and are negativ e except for as per HPI. ROS unobtainable: Yes unobtainable due to mental status Exam Narrative: General: Chronically ill-appearing HEENT: normocephalic, atraumatic. Mucous membranes moist. EOMI, PERRLA, bilateral sclera anicteric, no conjunctival injection. Neck supple without JVD, lymphadenopathy, or bruit. Cervical collar Respiratory: clear bilaterally. No rales/rhonic/wheezes. Cardiovascular: Regular rate and rhythm, normal S1-S2. No murmurs, rubs, or clicks. PMI is nondisplaced, capillary refill less than 3 second. Abdomen: Soft, round, no pulsatile masses, nondistended and nontender. No rebound, no guarding. Bowel sounds present to all four quadrants. No high pitch or tinkling sounds, resonant to percussion. Extremities: No cyanosis, clubbing. left upper extremity edema. Pulses are palpable 2/2. Active ROM to all four extremities. Neuro: Alert and orientated x 3, but forgetful. PERRLA. Cranial nerves 2-12 intact without focal deficit. Skin: Warm, dry, and intact, erythema, left arm eschar, buttocks escoriation Psych: pleasant, cooperative, normal speech, normal affect, no hallucinations, no dysarthia Generalized ecchymosis Objective Data Vital Signs Vital Signs: Vital Signs - 24 hr 07/09/25 14:00 07/09/25 20:00 07/09/25 20:52 Temperature 96.8 F L Pulse Rate 86 76 Respiratory Rate 18 Blood Pressure 118/74 Pulse Oximetry 96 97 Oxygen Delivery Nasal Cannula Oxygen Flow Rate 2 07/09/25 20:53 07/09/25 21:32 07/10/25 05:15 Temperature 97.1 F L 98.0 F Pulse Rate 76 76 80 Respiratory Rate 16 16 Blood Pressure 104/70 132/73 Pulse Oximetry 100 97 Oxygen Delivery Oxygen Flow Rate 07/10/25 08:00 07/10/25 10:05 07/10/25 11:50 Temperature Pulse Rate 100 Respiratory Rate 29 H 26 H Blood Pressure Pulse Oximetry 94 99 Oxygen Delivery Nasal Cannula BiPAP BiPAP Oxygen Flow Rate 2 07/10/25 12:00 07/10/25 12:00 07/10/25 12:00 Temperature 98.9 F Pulse Rate 78 78 57 L Respiratory Rate 30 H 24 H Blood Pressure 137/51 L Pulse Oximetry 91 99 Oxygen Delivery BiPAP Oxygen Flow Rate Intake/Output Intake/Output: Intake & Output 07/07/25 07/08/25 07/09/25 07/10/25 23:59 23:59 23:59 23:59 Intake Total 170 1120 1052 550 Output Total 018 1925 2320 [address] [place] [phone] [facility]3 250 Meds/Results Medications: Active Medications Generic Name Dose Route Start Last Admin Trade Name Freq PRN Reason Stop Dose Admin Acetaminophen 650 mg 07/07/25 08:10 07/08/25 12:24 Acetaminophen 325 Mg Tablet PO 650 mg Q4H PRN Administration Mild Pain (1-3) or Fever Dextrose 12.5 gm 07/07/25 13:53 Dextrose 50% 25 Gm/50 Ml Syringe IV PUSH PRN PRN Hypoglycemia Protocol Doxycycline Hyclate 100 mg 07/07/25 21:00 07/10/25 11:01 Doxycycline Hyclate 100 Mg Tablet PO Not Given Q12HR [facility] Enoxaparin Sodium 40 mg 07/08/25 09:00 07/10/25 11:01 Enoxaparin 40 Mg/0.4 Ml Syringe SUB-Q Not Given DAILY IVONE Furosemide 40 mg 07/08/25 09:00 07/10/25 11:01 Furosemide Inj 40 Mg/4 Ml Vial IV PUSH Not Given DAILY IVONE Glucose 15 gm 07/07/25 13:53 Glucose Oral Gel 15 Gm Of Glucse In 37.5 Gm Tube PO PRN PRN Hypoglycemia Protocol Guaifenesin 1,200 mg 07/07/25 21:00 07/10/25 11:01 Guaifenesin 12 Hr 600 Mg Tabcr PO Not Given Q12HR IVONE Ceftriaxone Sodium 1 gm/ 50 mls @ 100 mls/hr 07/08/25 06:00 07/10/25 05:30 Sodium Chloride IVPB 100 mls/hr Q24H IVONE Administration Dextrose 1,000 mls @ 100 mls/hr 07/07/25 13:53 Dextrose 5% 1,000 Ml IVPB PRN PRN Hypoglycemia Protocol Insulin Aspart 2 - 5 units 07/07/25 17:00 07/10/25 11:00 Insulin Aspart (*Bkc) 100 Units/Ml SUB-Q Not Given TIDWM [facility] Protocol Insulin Glargine 8 units 07/08/25 09:00 07/10/25 11:10 Insulin Glargine (*Bkc) 100 Units/Ml SUB-Q Not Given DAILY IVONE Loperamide HCl 2 mg 07/07/25 14:57 Loperamide Hcl 2 Mg Capsule PO PRN PRN Diarrhea Losartan Potassium 25 mg 07/08/25 09:00 07/10/25 11:01 Losartan Potassium 25 Mg Tablet PO Not Given DAILY IVONE Methocarbamol 500 mg 07/07/25 14:53 07/09/25 08:32 Methocarbamol 500 Mg Tablet PO 500 mg Q8H PRN Administration muscle spasms Metoprolol Tartrate 25 mg 07/07/25 21:00 07/10/25 11:01 Metoprolol Tartrate 25 Mg Tablet BY MOUTH Not Given Q12HR IVONE Pantoprazole Sodium 40 mg 07/08/25 09:00 07/10/25 11:02 Pantoprazole 40 Mg Tablet PO Not Given QAM IVONE Perflutren Lipid Microsphere 0 ml 07/10/25 13:42 Perflutren Lipid Microspheres 1.5 Ml Vial Diluted To 10 Ml Total Volume IV PUSH 07/13/25 13:42 ONCE PRN adequate visualization Protocol Pramipexole Dihydrochloride 0.5 mg 07/07/25 21:00 07/09/25 20:52 Pramipexole 0.5 Mg Tablet PO 0.5 mg HS IVONE Administration Pravastatin Sodium 10 mg 07/08/25 09:00 07/10/25 11:02 Pravastatin Sodium 10 Mg Tablet BY MOUTH Not Given DAILY [facility] Sotalol HCl 80 mg 07/07/25 21:00 07/10/25 11:02 Sotalol Hcl 80 Mg Tablet PO Not Given Q12HR IVONE Trimethobenzamide HCl 200 mg 07/07/25 14:56 Trimethobenzamide Hcl 200 Mg/2 Ml Vial IM Q6H PRN Nausea And Vomiting Vitamin D 25 mcg 07/08/25 09:00 07/10/25 11:01 Cholecalciferol (Vitamin D3) 25 Mcg (1,000 Units) Tablet PO Not Given DAILY [facility] Radiology Results: ITS Impressions Cervical Spine CT 07/07/25 06:30 IMPRESSION: HEAD: 1. No acute intracranial findings. 2. Bilateral mastoiditis. C-SPINE: 1. No acute fracture. 2. Ill-defined fluid and postoperative changes posterior to upper cervical spine. 3. Extensive bilateral upper lung airspace disease, and left pleural effusion. Head CT 07/07/25 06:30 IMPRESSION: HEAD: 1. No acute intracranial findings. 2. Bilateral mastoiditis. C-SPINE: 1. No acute fracture. 2. Ill-defined fluid and postoperative changes posterior to upper cervical spine. 3. Extensive bilateral upper lung airspace disease, and left pleural effusion. Chest/Abdomen/Pelvis CT 07/07/25 07:13 IMPRESSION: 1. Diffuse lung disease, likely a combination of pneumonia in the upper lobes and left lower lobe and mild pulmonary edema. 2. Small pleural effusions. 3. Colitis involving the rectosigmoid. Chest X-Ray 07/10/25 09:56 Impression: CHF. Superimposed pneumonia suspected Labs Labs: Laboratory Results - last 24 hr 07/09/25 07/09/25 07/10/25 16:24 22:09 07:32 WBC RBC Hgb Hct MCV MCH MCHC RDW Plt Count MPV Puncture Site ABG pH ABG pCO2 ABG pO2 ABG PO2/FiO2 Ratio ABG HCO3 ABG O2 Saturation ABG O2 Content ABG Base Excess A-a Gradient Oxyhemoglobin Total Hemoglobin O2 Delivery Device O2 Liters/Min FiO2 Sodium Potassium Chloride Carbon Dioxide Anion Gap BUN Creatinine Estim Creat Clear Calc Estimated GFR Glucose POC Capillary Glucose 167 H 181 H 172 H Calcium Magnesium C-Reactive Protein NT-Pro-B Natriuret Pep Procalcitonin 07/10/25 07/10/25 07/10/25 09:08 10:19 11:50 WBC 8.9 RBC 3.31 L Hgb 9.3 L Hct 31.8 L MCV 96.1 MCH 28.1 MCHC 29.2 L RDW 19.3 H Plt Count 302 MPV 11.1 H Puncture Site Left radial ABG pH 7.318 L ABG pCO2 77.7 H* ABG pO2 104.6 H ABG PO2/FiO2 Ratio 3.74 ABG HCO3 39.0 H ABG O2 Saturation 97.1 ABG O2 Content 13.9 L ABG Base Excess 10.6 A-a Gradient 3.4 Oxyhemoglobin 95.6 Total Hemoglobin 10.2 L O2 Delivery Device Nasal cannula O2 Liters/Min 2.0 FiO2 28 Sodium 132 L Potassium 3.7 Chloride 94 L Carbon Dioxide 35 H Anion Gap 3 L BUN 28 H Creatinine 0.63 L Estim Creat Clear Calc 63 Estimated GFR > 60 Glucose 180 H POC Capillary Glucose 165 H Calcium 8.9 Magnesium 1.7 C-Reactive Protein 2.6 H NT-Pro-B Natriuret Pep 3860 H Procalcitonin 0.1 Quality VTE Prophylaxis VTE prophylaxis: mechanical ordered and pharmacologic ordered
[2025-07-10 13:50] LABS: Modified Allen's Test Pass; PCO2 ABG 78.7 mmHg (35.0-45.0); Site Drawn RIGHT RADIAL
[2025-07-10 13:51] LABS: Non-Invasive Expiratory Pressure 8 CMH2O; Non-Invasive Inspiratory Pressure 18 CMH2O; Non-Invasive Vent Rate 14 /MIN
[2025-07-10 14:26] LABS: Thyroid Stimulating Hormone 1.520 uIU/mL (0.465-4.680)
--- NOTE | 2025-07-10 14:47 | P.CONIN_ITS ---
Assessment and Plan Assessment and plan (1) Encephalopathy: Code(s): G93.40 - Encephalopathy, unspecified Status: Acute Assessment and Plan: Likely related to hypercapnic respiratory failure, sepsis/infection -07/10: will repeat head CT -continue AVAPS, repeat ABG in a couple of hours -check ammonia level (2) Acute and chronic respiratory failure: Code(s): J96.20 - Acute and chronic respiratory failure, unspecified whether with hypoxia or hypercapnia Status: Acute Assessment and Plan: Acute hypercapnic respiratory failure likely related to multifactorial issues, patient has a history of COPD, pulmonary hypertension, sarcoidosis, interstitial lung disease, now here with urinary tract infection, fall -pCO2 level this morning was 78, patient was placed on BiPAP with repeat pCO2 of level of 77 -pulmonology was consulted, placed patient on AVAPS, I shortened the inspiratory time on the AVAPS to increase the expiratory time -started patient on Solu-Medrol a she is not moving much air bilaterally, left > right, occasional wheezing -patient currently on ceftriaxone and doxycycline (07/07) (3) Sepsis: Code(s): A41.9 - Sepsis, unspecified organism Status: Acute Assessment and Plan: Patient presented with a fall, altered mental status, urinary tract infection -started on ceftriaxone and doxycycline for presumed UTI and or pneumonia -07/07: Urine cultures growing Gram-negative bacilli, identification is pending -07/07: Blood cultures pending -continue antibiotics as above (4) Acute exacerbation of chronic obstructive pulmonary disease: Code(s): J44.1 - Chronic obstructive pulmonary disease with (acute) exacerbation Status: Acute Assessment and Plan: Continue AVAPS, Solu-Medrol, antibiotics (5) UTI (urinary tract infection): Code(s): N39.0 - Urinary tract infection, site not specified Status: Acute Assessment and Plan: Continue antibiotics as above, urine culture growing Gram-negative bacilli (6) Type 2 diabetes mellitus with diabetic nephropathy: Qualifiers: Diabetes mellitus exterminator helper insulin use: without assisted use Q ualified Code(s): E11.21 - Type 2 diabetes mellitus with diabetic nephropathy Code(s): E11.21 - Type 2 diabetes mellitus with diabetic nephropathy Status: Acute Assessment and Plan: Patient on BiPAP, decreased responsiveness, not taking any p.o. intake -will hold Lantus, -will place patient on moderate dose of sliding scale insulin Accu-Cheks q.4 hours -if blood sugars remain elevated with add Lantus (7) Sarcoid: Code(s): D86.9 - Sarcoidosis, unspecified Status: Acute Assessment and Plan: Recently diagnosed sarcoidosis and [facility] -patient's calcium level a within normal limits -continue Solu-Medrol (8) Pulmonary hypertension: Code(s): I27.20 - Pulmonary hypertension, unspecified Status: Acute Assessment and Plan: History of pulmonary hypertension, likely related to sleep apnea, sarcoidosis, interstitial lung disease, coronary artery disease, COPD/: Pulmonology 11/21/2022: Echocardiogram RVSP was 59 -repeat echocardiogram has been ordered (9) Fall: Code(s): W19.XXXA - Unspecified fall, initial encounter Status: Acute Assessment and Plan: Patient presented with a fall on 07/07 -status post fusion of C2-C6 at [facility] on 06/26/2025 for cervical myelopathy -07/07: CT cervical spine showed fluid collection at the surgical site. Neurosurgery at [facility] evaluated the patient, no drainage from her incision and hardware was well-positioned, the neurosurgery team had no additional recommendations. (10) Pressure ulcer: Code(s): L89.90 - Pressure ulcer of unspecified site, unspecified stage Status: Acute Assessment and Plan: Stage III pressure ulcer on coccyx and sacrum -wound care following Plan DVT prophylaxis: Patient had recent fall on rivaroxaban, currently holding chemoprophylaxis. Continue SCDs Stress ulcer prophylaxis: Protonix Nutrition: NPO for now Code Status: Full code Critical Care Time Spent: 52 minutes Due to a high probability of clinically significant, life threatening deterioration, the patient required my highest level of preparedness to intervene emergently and I personally spent this critical care time directly and personally managing the patient. This critical care time included obtaining a history; examining the patient; pulse oximetry; ordering and review of studies; arranging urgent treatment with development of a management plan; evaluation of patient's response to treatment; frequent reassessment; and discussions with other providers. It was exclusive of separately billable procedures and treating other patients and teaching time. Please see Assessment and Plan section and the rest of the note for further information on patient assessment and treatment This dictation may have been done utilizing a voice recognition system. Attempts have been made to correct errors. However, there may be uncorrected grammatical, spelling, and recognitions errors present. Travel Money Advisor Consult Note Consult date: 07/10/25 Reason for consult: Encephalopathy, hypercapnic respiratory failure HPI: Laura Clifford is a 75 year old female with past medical history of COPD, pulmonary hypertension, type 2 diabetes, chronic respiratory failure with home oxygen therapy, polymyalgia rheumatica, TIA, paroxysmal AFib on rivaroxaban at home which was discontinued after her fall, dyslipidemia, multifocal atrial tachycardia, GERD, essential hypertension, status post fusion of C2-C6 at [facility] on 06/26/2025 for cervical myelopathy also she was seen by the metal room dental technician at [facility] and underwent a biopsy and patient was found to have sarcoidosis given her elevated calcium levels. Patient was started on prednisone 10 mg daily. She was also intubated over there in the ICU where she was on BiPAP.. Patient was discharged from senior living facility on 07/04/2025 and was brought to the and patient ER for altered mental status, unwitnessed fall. Patient was diagnosed with UTI and pneumonia. Receiving antibiotic. CT cervical spine showed fluid collection at the surgical site. Neurosurgery evaluated the patient, no drainage from her incision and hardware was well-positioned, the neurosurgery team had no additional recommendations. 07/10/25: I was asked see the patient for hypercapnic respiratory failure, altered mental status. Patient was on BiPAP 18/8 early during the day, pulmonology was consulted, switched to AVAPS mode, now getting improved minute ventilation and tidal volume. Currently on ceftriaxone and doxycycline along with Lasix 40 mg IV daily with adequate urine output. After evaluation in the intermediate Unit, and discussion with metal room dental technician I decided to bring the patient to the ICU for closer monitoring. Patient seen and examined, encephalopathic, Not able to elicit any answers to questions, does not follow commands, does move her feet spontaneously. Test Skein Winder was in the room when I was examining the patient, he had just switched her to AVAPS mode of ventilation. Review of Systems 2 Review of Systems: ROS unobtainable: Yes unobtainable due to medical condition and unobtainable due to mental status PMFSH Past Medical History Medical History Preop cardiovascular exam Chronic obstructive pulmonary disease, unspecified Hard of hearing Eustachian tube dysfunction Cubital tunnel syndrome on right Pulmonary hypertension Chronic idiopathic myocarditis Restless leg syndrome 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 Chronic respiratory failure with hypoxia, on home oxygen therapy Transient ischemic attack Chronic hyponatremia Venous insufficiency Iron deficiency anemia Polymyalgia rheumatica Small vessel disease, cerebrovascular Chronic anticoagulation Paroxysmal atrial fibrillation Coronary artery disease Microscopic colitis Chronic diarrhea Exocrine pancreatic insufficiency COVID-19 Cervical arthritis Pneumonia Dyslipidemia Essential hypertension Gastro-esophageal reflux disease without esophagitis Multifocal atrial tachycardia Surgical History Surgical History History of heart artery stent History of cardiac catheterization History of bilateral knee replacement History of bilateral carpal tunnel release History of colonoscopy with polypectomy History of coronary artery bypass graft x 2 (12/2013) History of Achilles tendon repair History of spinal surgery Lumbar micro discectomy infusion. History of mitral valve repair History of shoulder surgery History of cataract extraction Left History of hand surgery trigger finger, thumb Family History Family History Mother Cerebrovascular accident Family history of diabetes mellitus in first degree relative Family history of coronary artery disease Acute myocardial infarction Diabetes mellitus Father Carcinoma of colon Family history of lung cancer Family history of malignant neoplasm of esophagus Sibling Liver disease Liver transplant recipient Other Family history of malignant neoplasm of brain Family history of malignant neoplasm of stomach Social History Social History Social History: Surrogate medical decision maker: Filippo Clifford, spouse. Code status: Full code. Smoking status: Never smoker Second hand tobacco smoke exposure: Yes Alcohol intake: unknown Drinks per week: 1 Alcohol use details: Rare alcohol use in moderation. Substance use: unknown Substance use type: does not use Do You Feel Safe in your Home?: Yes Lack of Transportation: No Lack of Food: Never True Current Housing: I Have Housing Concerned About Future Housing: No Difficulty Paying Gas/Electric Bills: No Difficulty Paying for Meds: No Currently Unemployed: No Education: Decline to Answer Difficulty w/ Childcare or Family Care: No Living arrangements: with family Additional living arrangements comments: Lives in [facility]. Occupation/Education: retired Additional occupation/education comments: Worked in [employer]. Spiritual care concerns: No Meds Home Medications and Allergies Home Medications ?Medication ?Instructions ?Recorded ?Confirmed ?Type arformoterol 15 mcg/2 mL solution See Rx Instructions .Route 06/16/24 07/07/25 Rx for nebulization .COMPLEX #30 ea evolocumab 140 mg/mL subcutaneous 140 mg subcut .every 2 weeks #2 mL 11/10/24 07/07/25 Rx pen injector (Repkenaa Christianoick) metoprolol tartrate 25 mg tablet See Rx Instructions . Route 01/05/25 07/07/25 Rx .COMPLEX #180 tabs rivaroxaban 20 mg tablet (Xarelto) See Rx Instructions .Route 01/10/25 07/07/25 Rx .COMPLEX #30 tabs furosemide 40 mg tablet See Rx Instructions .Route 0 02/13/25 07/07/25 Rx .COMPLEX #90 tabs pravastatin 10 mg tablet See Rx Instructions .Route 0 03/07/25 07/07/25 Rx .COMPLEX #90 tabs pramipexole 0.5 mg tablet 0.5 mg PO HS #90 tabs 07/07/25 Rx pantoprazole 40 mg tablet,delayed 40 mg PO QAM #90 tab s 04/02/25 07/07/25 Rx release sotalol 80 mg tablet 80 mg PO Q12H 04/27/2507/07 History metformin 500 mg tablet,extended 1,000 mg (2 x 500 mg) PO QPM #90 05/22/25 07/07/25 Rx release 24 hr tabs cholecalciferol (vitamin D3) 25 25 mcg PO DAILY 07/07/25 History mcg (1,000 unit) capsule (Vitamin D3) insulin glargine 100 unit/mL 10 unit subcut DAILY 03/2407/07/25 History subcutaneous solution (Lantus U-100 Insulin) insulin lispro 100 unit/mL 5 unit subcut TID 07/07/25 07/07/25 History subcutaneous solution (Humalog U-100 Insulin) losartan 25 mg tablet 25 mg PO DAILY 07/07/2503/24 History magnesium oxide 250 mg PO DAILY 07/07/2503/24 History methocarbamol 500 mg tablet 500 mg PO Q8H PRN muscle s pasms 07/07/25 07/07/25 History potassium chloride 10 mEq oral 20 meq PO DAILY 5 07/07/25 History packet (Pokonza) Allergies Allergy/AdvReac Type Severity Reaction Status Date / Time ciprofloxacin Allergy Mild Unknown Verified 07/07/25 13:13 codeine Allergy Mild Vomiting Verified 07/07/25 13:13 levofloxacin Allergy Unknown Unknown Verified 07/07/25 13:13 lisinopril Allergy Unknown Unknown Verified 07/07/25 13:13 amoxicillin (From Augmentin) AdvReac Severe Confusion Verified 07/07/25 13:13 clavulanic acid (From AdvReac Severe Confusion Verified 07/07/25 13:13 Augmentin) tramadol AdvReac Mild Vomiting Verified 07/07/25 13:13 Vital Signs Vital Signs - 24 hr 07/09/25 20:00 07/09/25 20:52 07/09/25 20:53 Temperature Pulse Rate 76 76 Respiratory Rate Blood Pressure Pulse Oximetry 97 Oxygen Delivery Nasal Cannula Oxygen Flow Rate 2 07/09/25 21:32 07/10/25 05:15 07/10/25 08:00 Temperature 97.1 F L 98.0 F Pulse Rate 76 80 Respiratory Rate 16 16 Blood Pressure 104/70 132/73 Pulse Oximetry 100 97 94 Oxygen Delivery Nasal Cannula Oxygen Flow Rate 2 07/10/25 10:05 07/10/25 11:50 07/10/25 12:00 Temperature Pulse Rate 100 78 Respiratory Rate 29 H 26 H 30 H Blood Pressure Pulse Oximetry 99 91 Oxygen Delivery BiPAP BiPAP BiPAP Oxygen Flow Rate 07/10/25 12:00 07/10/25 12:00 07/10/25 14:00 Temperature 98.9 F Pulse Rate 78 57 L 59 L Respiratory Rate 24 H Blood Pressure 137/51 L Pulse Oximetry 99 Oxygen Delivery Oxygen Flow Rate Exam 2 Narrative: General: Ill-appearing female, appears older than her stated age HEENT:? Unable to pry open her eyes to evaluate her pupils Neck:? Hard cervical collar in place Respiratory:? decreased breath sounds bilaterally left > right, occasional wheezing Cardiac:? Irregularly irregular, tachycardic Abdomen:? Soft, nontender, nondistended, hypoactive bowel sounds Extremities:? Upper extremities edematous, palpable pedal pulses on lower extremities Neuro:? Patient is on BiPAP, opens her eyes slightly, moves her feet bilaterally, does not move her upper extremities, left upper extremity more flaccid than right. Barely withdraws to pain Skin:? Bruising noted on upper extremities Psych:? Unable to assess at this time Results Labs 07/10/25 10:19 07/10/25 10:19 Labs: Short CBC 07/10/25 Range/Units 10:19 WBC 8.9 (4.5-10.0) K/mm3 Hgb 9.3 L (12.0-15.0) g/dL Hct 31.8 L (37.0-47.0) % Plt Count 302 (150-375) k/mm3 BMP 07/10/25 10:19 Sodium 132 L Potassium 3.7 Chloride 94 L Carbon Dioxide 35 H BUN 28 H Creatinine 0.63 L Glucose 180 H Calcium 8.9 Quality VTE Prophylaxis VTE prophylaxis: mechanical ordered Hospitalist MIPS Advance Care Plan I have confirmed that the patient's Advanced Care Plan is present, code status is documented, or surrogate decision maker is listed in patient medical record.: Yes Medication Reconciliation I have utilized all available resources to obtain, update and review the patients current medications (includes all prescriptions, OTC, herbals, cannabis, and nutritional supplements).: Yes
[2025-07-10 14:51] LABS: Free T4 Free Thyroxine 1.28 ng/dL (0.78-2.19)
[2025-07-10] MEDS: IPRATROPIUM BR 0.02% INH SOLN 0.5 MG/2.5 ML VIAL INHALATION ×2 (15:48→20:46)
[2025-07-10 16:33] LABS: Ammonia < 9 umol/L (9-30)
[2025-07-10 16:44] LABS: Influenza A QL RT-PCR Negative (Negative); Influenza B QL RT-PCR Negative (Negative); RSV RNA, RT-PCR Negative (Negative); SARS-CoV-2 RNA PCR Negative (Negative)
[2025-07-10] MEDS: PANTOPRAZOLE SODIUM IV 40 MG VIAL IV PUSH (17:03)
[2025-07-10] MEDS: ALBUMIN HUMAN 5% 250 ML IV CONT (17:10)
[2025-07-10 17:22] LABS: Alveolar/Arterial O2 Gradient 75.5 mmHg; Carboxyhemoglobin 1.4 % THb (0-2.0); Fractional Inspired Oxygen 30 %; HCO3 ABG 36.1 mEq/l (22.0-26.0); Methemoglobin ABG 0.2 %THb (0-1.5); Oxygen Content ABG 13.4 %vol (16.0-22.0); Oxygen Saturation ABG 97.3 % (95.0-100.0); PCO2 ABG 44.7 mmHg (35.0-45.0); PO2 ABG 85.9 mmHg (80.0-100.0); PO2 FiO2 Ratio Arterial Blood 2.86 %; Reduced Hemoglobin 3.0 %THb (0-5.0)
[2025-07-10 17:28] LABS: Modified Allen's Test Pass; Site Drawn LEFT RADIAL
[2025-07-10 17:29] LABS: Non-Invasive Vent Rate 20 /MIN
[2025-07-10 19:00] LABS: MRSA (PCR) DETECTED (NOT DETECTE)
[2025-07-10] MEDS: CENTRAL LINE FLUSH 10 ML IV PUSH (20:58)
[2025-07-10] MEDS: VANCOMYCIN 1,750 MG/NS 500 ML 1,750 MG/500 ML BAG 250 MG IVPB (21:03)
[2025-07-10] MEDS: DOXYCYCLINE IV 100 MG in SODIUM CHLORIDE 0.9% IV 100 ML IVPB (21:15)
[2025-07-10] MEDS: ACETAMINOPHEN 650 MG SUPPOSITORY RECTAL (21:18)
--- NOTE | 2025-07-10 21:27 | WPDPROCEDUR ---
Procedures Central Line Placement Right Femoral: Central Line Date: 07/10/25 Central Line Time: 20:00 Discussed w/ the patient/family/POA,the placement of a central venous catheter, including its clinical necessity/indication & associated potential risks, benifits and alternatives.: Yes The patient/family/POA understand(s) and acknowledge(s) the need to proceed with central venous catheter insertion as an important element of the patient's clinical management.: Yes Consent: I have discussed with the patient and/or surrogate, the non-emergent placement of a central venous catheter, including its clinical necessity/indication and associated potential risks and complications. The patient and/or surrogate understand(s) and acknowledge(s) the need to proceed with central venous catheter insertion as an important element of the patient's clinical management. Time Out Performed: Yes Patient Position: trendelenburg Patient placed on monitor/pulse ox: Yes Provider Prep: mask, sterile gown, sterile gloves, Max. sterile barrier precautions, cap and hand hygiene with conventional soap/water or alcohol based hand rub Central line prep: 2% Chlorhexidine scrub and sterile full body sheet applied Local anesthesia used: lidocaine 1% Amount of anesthesia used (ml): 5 Sterile US Technique with sterile gel/sterile probe covers: Yes Central line lumen inserted: triple Moldovan: 7 Length (cm): 20 Depth of Insertion (cm): 20 Post Procedure: sutured in place, good blood return, all ports aspirated, flushed, capped, transparent dressing, hemostatic product, antimicrobial product, securement product and aseptic technique maintained throughout procedure Patient tolerated procedure: well Additional comments: 20 cm triple-lumen right femoral line placed under ultrasound guidance Selinger technique on 1st attempt. Approximately 5 mL of blood loss. Venous blood return from all ports. All ports drawl in flush easily.
[2025-07-10] MEDS: NOREPINEPHRINE 8 MG/D5W 250 ML 8 MG/250 ML BAG 9.38 MG IV CONT (22:10)
--- NOTE | 2025-07-10 22:25 | PC.NURSE ---
Patient not using incentive spirometry while on bipap
--- NOTE | 2025-07-10 22:48 | PC.NURSE ---
Dr Allen called about elevated heart rate and patient in and out of Afib. Amiodarone drip without bolus ordered. Order to start at one but decrease to .5 if heart rate drops significantly.
[2025-07-11] VITALS (55 sets, daily range): BP systolic 90–153; BP diastolic 49–132; PULSE 78–132; RESP 15–37; TEMP 37.2–37.6; O2SAT 88–99
[2025-07-11] MEDS: INSULIN ASPART (*BKC) 100 UNITS/ML SUB-Q ×6 (00:19→20:12)
--- NOTE | 2025-07-11 00:29 | PC.NURSE ---
Called Dr Allen due to patient complaint of pain; pt repeating it hurts, it hurts. Patient unable to quantify pain other than its everywhere. Reviewed allergies: 2mg morphine ordered now.
[2025-07-11] MEDS: MORPHINE SULFATE (*CRX) 4 MG/ML INJ 2 MG IV PUSH (00:45)
[2025-07-11] MEDS: IPRATROPIUM BR 0.02% INH SOLN 0.5 MG/2.5 ML VIAL INHALATION ×4 (02:19→19:09)
--- NOTE | 2025-07-11 03:33 | PCRCNOTE ---
Patient refused and asked me to stop. Notified nurse.
--- NOTE | 2025-07-11 03:34 | PC.NURSE ---
informed by Vish ZAYAS that patient will not tolerate ABG; screams it hurts and moves arm.
[2025-07-11 04:54] LABS: Hematocrit 28.6 % (37.0-47.0); Hemoglobin 8.7 g/dL (12.0-15.0); Immature Granulocyte Percent A 0.7 % (0-0.5); Lymphocytes Absolute Auto 0.32 K/mm3 (0.9-3.2); Mean Corpuscular HGB Conc 30.4 g/dl (32-36); Mean Corpuscular Hemoglobin 28.3 pg (26-34); Mean Corpuscular Volume 93.2 fl (80-100); Nucleated Red Blood Cells Absolute Auto 0.000 K/mm3 (0.0-0.012); Nucleated Red Blood Cells Perc 0.0 % (0.0-0.2); Platelet Count Result 293 k/mm3 (150-375); Red Blood Count 3.07 M/mm3 (4.2-5.4); White Blood Count 6.8 K/mm3 (4.5-10.0)
[2025-07-11] MEDS: cefTRIAXone 1 GM in SODIUM CHLORIDE 0.9% IV 50 ML 100 ML IVPB (05:01)
[2025-07-11] MEDS: CENTRAL LINE FLUSH 10 ML IV PUSH ×3 (05:01→20:18)
[2025-07-11 05:19] LABS: Alanine Aminotransferase 19 U/L (6-35); Albumin Level 3.1 g/dL (3.5-5.1); Alkaline Phosphatase 155 U/L (38-126); Anion Gap 5 mmol/L (4-12); Aspartate Amino Transferase 27 U/L (14-36); Bilirubin,Total 0.4 mg/dL (0.2-1.3); Blood Urea Nitrogen 32 mg/dL (7-17); CRP 1.6 mg/dL (<1.0); Calcium 8.5 mg/dL (8.4-10.2); Carbon Dioxide 34 mmol/L (22-30); Chloride 94 mmol/L (98-107); Creatine Kinase < 20 U/L (30-135); Estimated CRCL calculation 47 ml/min; Estimated Glomerular Filt Rate > 60; Glucose 204 mg/dL (65-110); Magnesium 1.6 mg/dL (1.6-2.3); Potassium 3.5 mmol/L (3.4-5.0); Sodium 133 mmol/L (137-145); Total Protein 5.6 g/dL (6.3-8.2)
[2025-07-11 05:58] LABS: Anisocytosis 1+; Burr Cells 1+; Hypochromasia 1+; Ovalocytes 1+
[2025-07-11 05:59] LABS: Schistocytes None Seen
[2025-07-11 07:19] LABS: Thyroid Stimulating Hormone 1.120 uIU/mL (0.465-4.680)
--- NOTE | 2025-07-11 07:55 | PM.PNCARD ---
Progress Note: A&P Assessment and Plan (1) Paroxysmal atrial fibrillation: Code(s): I48.0 - Paroxysmal atrial fibrillation Status: Chronic Assessment and Plan: In Sinus rhythm with intermittent short runs of atrial tachycardia due to acute illness and on levophed drip. Was on Sotalol 80 mg BID and on Xarelto normally. On Metoprolol prn for tachycardia. Unsure how long she has been without Sotalol. Ideally, would like to wait 7 days for Sotalol to wash out prior to initiating a different antiarrhythmic such as Amiodarone. Check echo. (2) Essential hypertension: Code(s): I10 - Essential (primary) hypertension Status: Acute Assessment and Plan: Stable. (3) Dyslipidemia: Code(s): E78.5 - Hyperlipidemia, unspecified Status: Acute Assessment and Plan: On Pravastatin. 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 (5) Chronic obstructive pulmonary disease, unspecified: Code(s): J44.9 - Chronic obstructive pulmonary disease, unspecified Status: Acute (6) Pneumonia: Code(s): J18.9 - Pneumonia, unspecified organism Status: Acute Assessment and Plan: On antibiotics as per hospitalist. On levophed drip as per customer support manager. (7) UTI (urinary tract infection): Code(s): N39.0 - Urinary tract infection, site not specified Status: Acute Assessment and Plan: On antibiotics as per hospitalist. Subjective Date/time seen: 07/11/25 07:55 Interval history: Patient is on CPAP and speaking to herself. Exam Const: General: ill appearing and other (on CPAP) Resp: Auscultation: no crackles, no rales, no rhonchi, no wheezes and diminished lung sounds Cardio: Rate: tachycardic Rhythm: abnormal rhythm Heart sounds: no murmurs Peripheral pulses: dorsalis pedis present Extrem: Right lower extremity: no edema Left lower extremity: no edema Objective Data Vital Signs Vital Signs: Vital Signs - 24 hr 07/10/25 08:00 07/10/25 10:05 07/10/25 11:50 Temperature Pulse Rate 100 Respiratory Rate 29 H 26 H Blood Pressure Pulse Oximetry 94 99 Oxygen Delivery Nasal Cannula BiPAP BiPAP Oxygen Flow Rate 2 Fraction of Inspired Oxygen 07/10/25 12:00 07/10/25 12:00 07/10/25 12:00 Temperature 98.9 F Pulse Rate 78 78 57 L Respiratory Rate 30 H 24 H Blood Pressure 137/51 L Pulse Oximetry 91 99 Oxygen Delivery BiPAP Oxygen Flow Rate Fraction of Inspired Oxygen 07/10/25 14:00 07/10/25 14:50 07/10/25 15:00 Temperature Pulse Rate 59 L 93 108 H Respiratory Rate 25 H 22 H Blood Pressure 112/91 H Pulse Oximetry 99 94 Oxygen Delivery Oxygen Flow Rate Fraction of Inspired Oxygen 07/10/25 15:48 07/10/25 15:53 07/10/25 15:57 Temperature Pulse Rate 72 107 H 101 H Respiratory Rate 21 H 21 H 24 H Blood Pressure Pulse Oximetry 97 Oxygen Delivery BiPAP Oxygen Flow Rate Fraction of Inspired Oxygen 07/10/25 16:00 07/10/25 16:00 07/10/25 16:00 Temperature 99.0 F Pulse Rate 131 H 112 H Respiratory Rate 22 H Blood Pressure 102/48 L Pulse Oximetry 100 Oxygen Delivery BiPAP Oxygen Flow Rate Fraction of Inspired Oxygen 07/10/25 17:00 07/10/25 17:38 07/10/25 18:00 Temperature 99.1 F Pulse Rate 103 H 85 79 Respiratory Rate 22 H 25 H Blood Pressure 108/42 L Pulse Oximetry 100 100 Oxygen Delivery BiPAP Oxygen Flow Rate Fraction of Inspired Oxygen 07/10/25 18:00 07/10/25 19:00 07/10/25 19:01 Temperature 99.2 F 99.4 F 99.4 F Pulse Rate 79 93 55 L Respiratory Rate 21 H 21 H 25 H Blood Pressure 105/66 82/38 L Pulse Oximetry 100 100 Oxygen Delivery Oxygen Flow Rate Fraction of Inspired Oxygen 07/10/25 19:06 07/10/25 19:15 07/10/25 19:16 Temperature 99.4 F 99.3 F 99.3 F Pulse Rate 95 110 H 58 L Respiratory Rate 23 H 21 H 27 H Blood Pressure 87/42 L 84/44 L Pulse Oximetry 99 99 Oxygen Delivery Oxygen Flow Rate Fraction of Inspired Oxygen 07/10/25 19:30 07/10/25 19:31 07/10/25 19:45 Temperature 99.3 F 99.3 F 99.2 F Pulse Rate 120 H 78 106 H Respiratory Rate 20 19 20 Blood Pressure 95/52 L 68/51 L Pulse Oximetry 99 100 100 Oxygen Delivery Oxygen Flow Rate Fraction of Inspired Oxygen 07/10/25 19:46 07/10/25 19:47 07/10/25 20:00 Temperature 99.2 F 99.2 F Pulse Rate 113 H 100 97 Respiratory Rate 18 20 Blood Pressure 91/67 L Pulse Oximetry 100 Oxygen Delivery Oxygen Flow Rate Fraction of Inspired Oxygen 07/10/25 20:00 07/10/25 20:01 07/10/25 20:15 Temperature 99.2 F 99.2 F 99.2 F Pulse Rate 88 95 119 H Respiratory Rate 20 24 H 16 Blood Pressure 97/51 L 132/107 H Pulse Oximetry 100 100 Oxygen Delivery Oxygen Flow Rate Fraction of Inspired Oxygen 07/10/25 20:16 07/10/25 20:33 07/10/25 20:34 Temperature 99.2 F 99.2 F 99.2 F Pulse Rate 80 94 99 Respiratory Rate 27 H 14 15 Blood Pressure 131/63 Pulse Oximetry 100 99 99 Oxygen Delivery Oxygen Flow Rate Fraction of Inspired Oxygen 07/10/25 20:45 07/10/25 20:46 07/10/25 20:46 Temperature 99.3 F Pulse Rate 110 H 80 80 Respiratory Rate 23 H 24 H 24 H Blood Pressure Pulse Oximetry 98 96 Oxygen Delivery BiPAP Oxygen Flow Rate Fraction of Inspired Oxygen 07/10/25 20:46 07/10/25 20:51 07/10/25 21:00 Temperature 99.3 F Pulse Rate 104 H 104 H Respiratory Rate 20 24 H Blood Pressure 119/64 Pulse Oximetry 100 97 Oxygen Delivery BiPAP Oxygen Flow Rate Fraction of Inspired Oxygen 30 07/10/25 21:00 07/10/25 21:01 07/10/25 21:15 Temperature 99.4 F 99.4 F 99.3 F Pulse Rate 103 H 94 103 H Respiratory Rate 21 H 22 H 20 Blood Pressure 102/79 Pulse Oximetry 100 96 Oxygen Delivery Oxygen Flow Rate Fraction of Inspired Oxygen 07/10/25 21:16 07/10/25 22:00 07/10/25 22:00 Temperature 99.3 F 99.0 F Pulse Rate 94 71 71 Respiratory Rate 20 23 H Blood Pressure 97/63 L 83/38 L Pulse Oximetry 97 100 Oxygen Delivery Oxygen Flow Rate Fraction of Inspired Oxygen 07/10/25 22:10 07/10/25 22:30 07/10/25 22:34 Temperature 98.9 F Pulse Rate 105 H 114 H 129 H Respiratory Rate 25 H Blood Pressure 78/31 L 136/75 136/75 Pulse Oximetry 100 Oxygen Delivery Oxygen Flow Rate Fraction of Inspired Oxygen 07/10/25 22:47 07/10/25 23:00 07/10/25 23:05 Temperature 99.1 F Pulse Rate 81 94 89 Respiratory Rate 27 H 23 H Blood Pressure 127/63 127/63 Pulse Oximetry 93 97 Oxygen Delivery BiPAP Oxygen Flow Rate Fraction of Inspired Oxygen 07/10/25 23:06 07/10/25 23:25 07/10/25 23:30 Temperature Pulse Rate 101 H 105 H 92 Respiratory Rate 23 H Blood Pressure 127/63 75/51 L 108/59 L Pulse Oximetry 97 Oxygen Delivery Oxygen Flow Rate Fraction of Inspired Oxygen 07/11/25 00:00 07/11/25 00:00 07/11/25 00:00 Temperature 99.2 F Pulse Rate 90 132 H Respiratory Rate 26 H Blood Pressure 104/73 Pulse Oximetry 97 99 Oxygen Delivery BiPAP Oxygen Flow Rate Fraction of Inspired Oxygen 30 07/11/25 00:30 07/11/25 00:35 07/11/25 00:36 Temperature 99.2 F Pulse Rate 102 H 107 H 105 H Respiratory Rate 15 Blood Pressure 116/49 L 116/49 L 116/49 L Pulse Oximetry 98 Oxygen Delivery Oxygen Flow Rate Fraction of Inspired Oxygen 07/11/25 01:00 07/11/25 01:15 07/11/25 01:30 Temperature 99.2 F Pulse Rate 92 91 105 H Respiratory Rate 28 H 22 H Blood Pressure 121/61 135/85 90/56 L Pulse Oximetry 99 99 Oxygen Delivery Oxygen Flow Rate Fraction of Inspired Oxygen 07/11/25 02:00 07/11/25 02:00 07/11/25 02:00 Temperature Pulse Rate 91 91 85 Respiratory Rate Blood Pressure 98/57 L 98/57 L Pulse Oximetry Oxygen Delivery Oxygen Flow Rate Fraction of Inspired Oxygen 07/11/25 02:00 07/11/25 02:19 07/11/25 02:19 Temperature 99.1 F Pulse Rate 85 93 93 Respiratory Rate 21 H 28 H 28 H Blood Pressure 98/57 L Pulse Oximetry 98 96 Oxygen Delivery BiPAP Oxygen Flow Rate Fraction of Inspired Oxygen 07/11/25 02:24 07/11/25 03:00 07/11/25 03:00 Temperature 99.1 F Pulse Rate 93 94 94 Respiratory Rate 27 H 20 Blood Pressure 112/76 112/76 Pulse Oximetry 99 Oxygen Delivery Oxygen Flow Rate Fraction of Inspired Oxygen 07/11/25 03:46 07/11/25 03:46 07/11/25 04:00 Temperature 99.0 F Pulse Rate 100 100 100 Respiratory Rate 20 Blood Pressure 141/83 H 141/83 H Pulse Oximetry 90 Oxygen Delivery Oxygen Flow Rate Fraction of Inspired Oxygen 07/11/25 04:00 07/11/25 04:31 07/11/25 05:00 Temperature Pulse Rate 78 108 H Respiratory Rate Blood Pressure 123/71 95/66 L Pulse Oximetry 95 Oxygen Delivery BiPAP Oxygen Flow Rate Fraction of Inspired Oxygen 30 07/11/25 05:00 07/11/25 05:09 07/11/25 06:00 Temperature 99.1 F Pulse Rate 108 H 107 H 104 H Respiratory Rate 18 30 H Blood Pressure 95/66 L 151/104 H Pulse Oximetry 99 99 Oxygen Delivery BiPAP Oxygen Flow Rate Fraction of Inspired Oxygen 07/11/25 06:00 07/11/25 06:06 07/11/25 06:08 Temperature Pulse Rate 105 H 105 H 111 H Respiratory Rate 20 Blood Pressure 151/104 H 151/104 H Pulse Oximetry 95 Oxygen Delivery Oxygen Flow Rate Fraction of Inspired Oxygen 07/11/25 07:00 Temperature Pulse Rate 104 H Respiratory Rate 29 H Blood Pressure 94/80 L Pulse Oximetry 98 Oxygen Delivery Oxygen Flow Rate Fraction of Inspired Oxygen Intake/Output Intake/Output: Intake & Output 07/08/25 07/09/25 07/10/25 07/11/25 23:59 23:59 23:59 23:59 Intake Total 1120 1052 1217.4 190.4 Output Total 1575 2250 410 150 Balance -345 -1198 807.4 40.4 Meds/Results Medications: Active Medications Generic Name Dose Route Start Last Admin Trade Name Freq PRN Reason Stop Dose Admin Acetaminophen 650 mg 07/07/25 08:10 07/08/25 12:24 Acetaminophen 325 Mg Tablet PO 650 mg Q4H PRN Administration Mild Pain (1-3) or Fever Acetaminophen 650 mg 07/10/25 17:36 07/10/25 21:18 Acetaminophen 650 Mg Suppository RECTAL 650 mg Q6H PRN Administration Fever Dextrose 12.5 gm 07/10/25 15:08 Dextrose 50% 25 Gm/50 Ml Syringe IV PUSH PRN PRN Hypoglycemia Protocol Enoxaparin Sodium 40 mg 07/08/25 09:00 07/10/25 11:01 Enoxaparin 40 Mg/0.4 Ml Syringe SUB-Q Not Given DAILY IVONE Furosemide 40 mg 07/08/25 09:00 07/10/25 11:01 Furosemide Inj 40 Mg/4 Ml Vial IV PUSH Not Given On Hold: 07/10/25 15:06 DAILY IVONE Glucagon 1 mg 07/10/25 15:08 Glucagon For Inj 1 Mg Vial IM PRN PRN Hypoglycemia Protocol Glucose 15 gm 07/10/25 15:08 Glucose Oral Gel 15 Gm Of Glucse In 37.5 Gm Tube PO PRN PRN Hypoglycemia Protocol Guaifenesin 1,200 mg 07/07/25 21:00 07/10/25 11:01 Guaifenesin 12 Hr 600 Mg Tabcr PO Not Given On Hold: 07/10/25 15:02 Q12HR IVONE Ceftriaxone Sodium 1 gm/ 50 mls @ 100 mls/hr 07/08/25 06:00 07/11/25 05:55 Sodium Chloride IVPB Infused Q24H IVONE Infusion Dextrose 1,000 mls @ 100 mls/hr 07/10/25 15:08 Dextrose 5% 1,000 Ml IVPB PRN PRN Hypoglycemia Protocol Vancomycin HCl 1,500 mg in 500 mls @ 250 mls/hr 07/11/25 14:00 Vancomycin 1,500 Mg/Ns 500 Ml IVPB Q18H IVONE Doxycycline Hyclate 100 mg/ 100 mls @ 100 mls/hr 07/10/25 21:00 07/10/25 22:20 Sodium Chloride IVPB Infused Q12H IVONE Infusion Norepinephrine Bitartrate 8 mg in 250 mls @ 1.875 mls/hr 07/10/25 20:35 07/11/25 06:06 Levophed 8 Mg/D5w 250 Ml IV CONT 0 mcg/min .Q24H IVONE 0 mls/hr Protocol Titration 1 MCG/MIN Potassium Chloride 100 mls @ 25 mls/hr 07/11/25 07:30 Kcl 40 Meq/Water 100 Ml IVPB 07/11/25 11:29 ONCE ONE Magnesium Sulfate 2 gm in 50 mls @ 50 mls/hr 07/11/25 07:40 Magnesium Sulf 2 Gm/Water 50ml IVPB 07/11/25 08:39 ONCE ONE Insulin Aspart 3 - 6 units 07/10/25 17:00 07/11/25 05:02 Insulin Aspart (*Bkc) 100 Units/Ml SUB-Q 3 units Q4HR IVONE Administration Protocol Insulin Glargine 8 units 07/08/25 09:00 07/10/25 11:10 Insulin Glargine (*Bkc) 100 Units/Ml SUB-Q Not Given On Hold: 07/10/25 15:05 DAILY IVONE Ipratropium [place] 0.5 mg 07/10/25 15:30 07/11/25 07:50 Ipratropium Br 0.02% Inh Soln 0.5 Mg/2.5 Ml Vial INHALATION 0.5 mg Q6HRT IVONE Administration Levalbuterol HCl 0.63 mg 07/10/25 15:26 07/11/25 07:50 Levalbuterol Neb 1.25 Mg/3 Ml INHALATION 0.63 mg Q6HRT IVONE Administration Loperamide HCl 2 mg 07/07/25 14:57 Loperamide Hcl 2 Mg Capsule PO On Hold: 07/10/25 15:03 PRN PRN Diarrhea Losartan Potassium 25 mg 07/08/25 09:00 07/10/25 11:01 Losartan Potassium 25 Mg Tablet PO Not Given On Hold: 07/10/25 15:04 DAILY [facility] Methocarbamol 500 mg 07/07/25 14:53 07/09/25 08:32 Methocarbamol 500 Mg Tablet PO 500 mg On Hold: 07/10/25 15:03 Q8H PRN Administration muscle spasms Methylprednisolone Sodium Succinate 40 mg 07/11/25 00:00 07/11/25 05:01 Methylprednisolone Sod Succ 40 Mg Vial IV PUSH 40 mg Q6HR IVONE Administration Metoprolol Tartrate 25 mg 07/07/25 21:00 07/10/25 11:01 Metoprolol Tartrate 25 Mg Tablet BY MOUTH Not Given On Hold: 07/10/25 15:03 Q12HR IVONE Pantoprazole Sodium 40 mg 07/08/25 09:00 07/10/25 11:02 Pantoprazole 40 Mg Tablet PO Not Given On Hold: 07/10/25 15:05 QAM IVONE Pantoprazole Sodium 40 mg 07/10/25 15:45 07/10/25 17:03 Pantoprazole Sodium Iv 40 Mg Vial IV PUSH 40 mg QAM IVONE Administration Perflutren Lipid Microsphere 0 ml 07/10/25 13:42 Perflutren Lipid Microspheres 1.5 Ml Vial Diluted To 10 Ml Total Volume IV PUSH 07/13/25 13:42 ONCE PRN adequate visualization Protocol Pramipexole Dihydrochloride 0.5 mg 07/07/25 21:00 07/09/25 20:52 Pramipexole 0.5 Mg Tablet PO 0.5 mg On Hold: 07/10/25 15:03 HS IVONE Administration Pravastatin Sodium 10 mg 07/08/25 09:00 07/10/25 11:02 Pravastatin Sodium 10 Mg Tablet BY MOUTH Not Given On Hold: 07/10/25 15:05 DAILY IVONE Sodium Chloride 10 ml 07/10/25 22:00 07/11/25 05:01 Central Line Flush IV PUSH 10 ml Q8HR IVONE Administration Sodium Chloride 20 ml 07/10/25 20:33 Central Line Flush IV PUSH PRN PRN after blood draws Sotalol HCl 80 mg 07/07/25 21:00 07/10/25 11:02 Sotalol Hcl 80 Mg Tablet PO Not Given On Hold: 07/10/25 15:03 Q12HR IVONE Trimethobenzamide HCl 200 mg 07/07/25 14:56 Trimethobenzamide Hcl 200 Mg/2 Ml Vial IM Q6H PRN Nausea And Vomiting Vitamin D 25 mcg 07/08/25 09:00 07/10/25 11:01 Cholecalciferol (Vitamin D3) 25 Mcg (1,000 Units) Tablet PO Not Given On Hold: 07/10/25 15:02 DAILY [facility] Radiology Results: ITS Impressions Cervical Spine CT 07/07/25 06:30 IMPRESSION: HEAD: 1. No acute intracranial findings. 2. Bilateral mastoiditis. C-SPINE: 1. No acute fracture. 2. Ill-defined fluid and postoperative changes posterior to upper cervical spine. 3. Extensive bilateral upper lung airspace disease, and left pleural effusion. Chest/Abdomen/Pelvis CT 07/07/25 07:13 IMPRESSION: 1. Diffuse lung disease, likely a combination of pneumonia in the upper lobes and left lower lobe and mild pulmonary edema. 2. Small pleural effusions. 3. Colitis involving the rectosigmoid. Head CT 07/10/25 15:36 Impression: 1.No acute intracranial abnormality. Chest X-Ray 07/11/25 07:09 Impression: 1: Mild interstitial edema. Labs Labs: Laboratory Results - last 24 hr 07/10/25 07/10/25 07/10/25 09:08 10:19 11:50 WBC 8.9 RBC 3.31 L Hgb 9.3 L Hct 31.8 L MCV 96.1 MCH 28.1 MCHC 29.2 L RDW 19.3 H Plt Count 302 MPV 11.1 H Immature Gran % (Auto) Neut % (Auto) Lymph % (Auto) [place] % (Auto) Eos % (Auto) Baso % (Auto) Lymph # (Auto) [place] # (Auto) Eos # (Auto) Baso # (Auto) Abs Immat Gran (auto) Absolute Neuts (auto) Absolute Nucleated RBC Band Neutrophils % Nucleated RBC % Platelet Estimate Hypochromasia Anisocytosis Ovalocytes Kiesha Cells Schistocytes Puncture Site Left radial ABG pH 7.318 L ABG pCO2 77.7 H* ABG pO2 104.6 H ABG PO2/FiO2 Ratio 3.74 ABG HCO3 39.0 H ABG O2 Saturation 97.1 ABG O2 Content 13.9 L ABG Base Excess 10.6 A-a Gradient 3.4 Oxyhemoglobin 95.6 Carboxyhemoglobin Methemoglobin Reduced Hemoglobin Total Hemoglobin 10.2 L O2 Delivery Device Nasal cannula O2 Liters/Min 2.0 Vent Rate FiO2 28 Expiratory Pressure Inspiratory Pressure Sodium 132 L Potassium 3.7 Chloride 94 L Carbon Dioxide 35 H Anion Gap 3 L BUN 28 H Creatinine 0.63 L Estim Creat Clear Calc 63 Estimated GFR > 60 Glucose 180 H POC Capillary Glucose 165 H Lactic Acid Calcium 8.9 Phosphorus Magnesium 1.7 Total Bilirubin AST ALT Alkaline Phosphatase Ammonia Total Creatine Kinase C-Reactive Protein 2.6 H NT-Pro-B Natriuret Pep 3860 H Total Protein Albumin Procalcitonin 0.1 TSH 1.520 Free T4 1.28 Nasal MRSA (PCR) Influenza A (RT-PCR) Influenza B (RT-PCR) RSV (RT-PCR) SARS-CoV-2 RNA (RT-PCR) 07/10/25 07/10/25 07/10/25 13:10 14:35 15:44 WBC RBC Hgb Hct MCV MCH MCHC RDW Plt Count MPV Immature Gran % (Auto) Neut % (Auto) Lymph % (Auto) [place] % (Auto) Eos % (Auto) Baso % (Auto) Lymph # (Auto) [place] # (Auto) Eos # (Auto) Baso # (Auto) Abs Immat Gran (auto) Absolute Neuts (auto) Absolute Nucleated RBC Band Neutrophils % Nucleated RBC % Platelet Estimate Hypochromasia Anisocytosis Ovalocytes Kiesha Cells Schistocytes Puncture Site Right radial ABG pH 7.322 L ABG pCO2 78.7 H* ABG pO2 152.4 H ABG PO2/FiO2 Ratio 3.05 ABG HCO3 39.8 H ABG O2 Saturation 98.7 ABG O2 Content 14.3 L ABG Base Excess 11.4 A-a Gradient 115.6 Oxyhemoglobin 96.8 Carboxyhemoglobin Methemoglobin Reduced Hemoglobin Total Hemoglobin 10.3 L O2 Delivery Device Non-invasive vent O2 Liters/Min Not Reportable Vent Rate 14 FiO2 50 Expiratory Pressure 8 Inspiratory Pressure 18 Sodium Potassium Chloride Carbon Dioxide Anion Gap BUN Creatinine Estim Creat Clear Calc Estimated GFR Glucose POC Capillary Glucose 141 H 151 H Lactic Acid Calcium Phosphorus Magnesium Total Bilirubin AST ALT Alkaline Phosphatase Ammonia Total Creatine Kinase C-Reactive Protein NT-Pro-B Natriuret Pep Total Protein Albumin Procalcitonin TSH Free T4 Nasal MRSA (PCR) Influenza A (RT-PCR) Influenza B (RT-PCR) RSV (RT-PCR) SARS-CoV-2 RNA (RT-PCR) 07/10/25 07/10/25 07/10/25 15:54 16:15 17:18 WBC RBC Hgb Hct MCV MCH MCHC RDW Plt Count MPV Immature Gran % (Auto) Neut % (Auto) Lymph % (Auto) [place] % (Auto) Eos % (Auto) Baso % (Auto) Lymph # (Auto) [place] # (Auto) Eos # (Auto) Baso # (Auto) Abs Immat Gran (auto) Absolute Neuts (auto) Absolute Nucleated RBC Band Neutrophils % Nucleated RBC % Platelet Estimate Hypochromasia Anisocytosis Ovalocytes Kiesha Cells Schistocytes Puncture Site Left radial ABG pH 7.525 H* ABG pCO2 44.7 ABG pO2 85.9 ABG PO2/FiO2 Ratio 2.86 ABG HCO3 36.1 H ABG O2 Saturation 97.3 ABG O2 Content 13.4 L ABG Base Excess 12.1 A-a Gradient 75.5 Oxyhemoglobin 95.4 Carboxyhemoglobin 1.4 Methemoglobin 0.2 Reduced Hemoglobin 3.0 Total Hemoglobin 9.9 L O2 Delivery Device Non-invasive vent O2 Liters/Min Not Reportable Vent Rate 20 FiO2 30 Expiratory Pressure Not Reportable Inspiratory Pressure Not Reportable Sodium Potassium Chloride Carbon Dioxide Anion Gap BUN Creatinine Estim Creat Clear Calc Estimated GFR Glucose POC Capillary Glucose Lactic Acid Calcium Phosphorus Magnesium Total Bilirubin AST ALT Alkaline Phosphatase Ammonia < 9 L Total Creatine Kinase C-Reactive Protein NT-Pro-B Natriuret Pep Total Protein Albumin Procalcitonin TSH Free T4 Nasal MRSA (PCR) Detected A* Influenza A (RT-PCR) Negative Influenza B (RT-PCR) Negative RSV (RT-PCR) Negative SARS-CoV-2 RNA (RT-PCR) Negative 07/10/25 07/11/25 07/11/25 20:10 00:16 04:44 WBC 6.8 RBC 3.07 L Hgb 8.7 L Hct 28.6 L MCV 93.2 MCH 28.3 MCHC 30.4 L RDW 19.4 H Plt Count 293 MPV 10.7 H Immature Gran % (Auto) 0.7 H Neut % (Auto) 92.0 H Lymph % (Auto) 4.7 L [place] % (Auto) 2.5 L Eos % (Auto) 0.0 Baso % (Auto) 0.1 L Lymph # (Auto) 0.32 L [place] # (Auto) 0.2 Eos # (Auto) 0.0 Baso # (Auto) 0.0 Abs Immat Gran (auto) 0.05 H Absolute Neuts (auto) 6.2 Absolute Nucleated RBC 0.000 Band Neutrophils % Not Reportable Nucleated RBC % 0.0 Platelet Estimate Adequate Hypochromasia 1+ Anisocytosis 1+ Ovalocytes 1+ Kiesha Cells 1+ Schistocytes None seen Puncture Site ABG pH ABG pCO2 ABG pO2 ABG PO2/FiO2 Ratio ABG HCO3 ABG O2 Saturation ABG O2 Content ABG Base Excess A-a Gradient Oxyhemoglobin Carboxyhemoglobin Methemoglobin Reduced Hemoglobin Total Hemoglobin O2 Delivery Device O2 Liters/Min Vent Rate FiO2 Expiratory Pressure Inspiratory Pressure Sodium 133 L Potassium 3.5 Chloride 94 L Carbon Dioxide 34 H Anion Gap 5 BUN 32 H Creatinine 0.87 Estim Creat Clear Calc 47 Estimated GFR > 60 Glucose 204 H POC Capillary Glucose 159 H 211 H 228 H Lactic Acid 1.7 Calcium 8.5 Phosphorus 3.3 Magnesium 1.6 Total Bilirubin 0.4 AST 27 ALT 19 Alkaline Phosphatase 155 H Ammonia Total Creatine Kinase < 20 L C-Reactive Protein 1.6 H NT-Pro-B Natriuret Pep Total Protein 5.6 L Albumin 3.1 L Procalcitonin TSH 1.120 Free T4 Nasal MRSA (PCR) Influenza A (RT-PCR) Influenza B (RT-PCR) RSV (RT-PCR) SARS-CoV-2 RNA (RT-PCR)
[2025-07-11] MEDS: PANTOPRAZOLE SODIUM IV 40 MG VIAL IV PUSH (08:42)
[2025-07-11] MEDS: KCL 40 MEQ/WATER 100 ML 100 ML 25 ML IVPB (08:43)
[2025-07-11] MEDS: DOXYCYCLINE IV 100 MG in SODIUM CHLORIDE 0.9% IV 100 ML IVPB ×2 (08:43→22:09)
[2025-07-11] MEDS: ENOXAPARIN 40 MG/0.4 ML SYRINGE SUB-Q (08:43)
[2025-07-11] MEDS: MAGNESIUM SULF 2 GM/WATER 50ML 2 GM/50 ML BAG IVPB (08:44)
--- NOTE | 2025-07-11 09:14 | P.PNINT_ITS ---
Progress Note: A&P Assessment and Plan (1) Encephalopathy: Code(s): G93.40 - Encephalopathy, unspecified Status: Acute Assessment and Plan: Likely related to hypercapnic respiratory failure, sepsis/infection -07/10: will repeat head CT -continue AVAPS, repeat ABG in a couple of hours -ammonia levels were normal <9. -her hypercapnia has resolved, patient is more awake, alert, able to answer questions appropriately and follows simple command (2) Acute and chronic respiratory failure: Code(s): J96.20 - Acute and chronic respiratory failure, unspecified whether with hypoxia or hypercapnia Status: Acute Assessment and Plan: Acute hypercapnic respiratory failure likely related to multifactorial issues, patient has a history of COPD, pulmonary hypertension, sarcoidosis, interstitial lung disease, now here with urinary tract infection, fall -pCO2 level this morning was 78, patient was placed on BiPAP with repeat pCO2 of level of 77 -pulmonology was consulted, placed patient on AVAPS, I shortened the inspiratory time on the AVAPS to increase the expiratory time -started patient on Solu-Medrol a she is not moving much air bilaterally, left > right, occasional wheezing -patient currently on ceftriaxone and doxycycline (07/07) -given patient has pneumonia plus MRSA screen being positive plus [facility], she was started on vancomycin (07/10) 07/11: Patient did well on AVAPS, repeat ABG showed resolution of hypercapnia, will place her on Vapotherm -will place patient on AVAPS overnight (3) Sepsis: Code(s): A41.9 - Sepsis, unspecified organism Status: Acute Assessment and Plan: Patient presented with a fall, altered mental status, urinary tract infection -started on ceftriaxone and doxycycline for presumed UTI and or pneumonia -07/07: Urine cultures growing Gram-negative bacilli, identification is pending -07/07: Blood cultures pending -continue antibiotics as above -07/11: Overnight patient did drop her blood pressures, albumin 5% 250 mL IV x1 was given despite which her blood pressures remain low, central line was inserted and patient was started on Levophed -she was on Levophed briefly which has been discontinued early this morning (4) Acute exacerbation of chronic obstructive pulmonary disease: Code(s): J44.1 - Chronic obstructive pulmonary disease with (acute) exacerbation Status: Acute Assessment and Plan: Continue AVAPS, Solu-Medrol, antibiotics (5) UTI (urinary tract infection): Code(s): N39.0 - Urinary tract infection, site not specified Status: Acute Assessment and Plan: Continue antibiotics as above, urine culture growing Gram-negative bacilli (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 intake -will hold Lantus, -will place patient on moderate dose of sliding scale insulin Accu-Cheks q.4 hours -if blood sugars remain elevated with add Lantus (7) Sarcoid: Code(s): D86.9 - Sarcoidosis, unspecified Status: Acute Assessment and Plan: Recently diagnosed sarcoidosis and [facility] -patient's calcium level a within normal limits -continue Solu-Medrol (8) Pulmonary hypertension: Code(s): I27.20 - Pulmonary hypertension, unspecified Status: Acute Assessment and Plan: History of pulmonary hypertension, likely related to sleep apnea, sarcoidosis, interstitial lung disease, coronary artery disease, COPD/: Pulmonology 11/21/2022: Echocardiogram RVSP was 59 -repeat echocardiogram has been ordered (9) Fall: Code(s): W19.XXXA - Unspecified fall, initial encounter Status: Acute Assessment and Plan: Patient presented with a fall on 07/07 -status post fusion of C2-C6 at [facility] on 06/26/2025 for cervical myelopathy -07/07: CT cervical spine showed fluid collection at the surgical site. Neurosurgery at [facility] evaluated the patient, no drainage from her incision and hardware was well-positioned, the neurosurgery team had no additional recommendations. (10) Pressure ulcer: Code(s): L89.90 - Pressure ulcer of unspecified site, unspecified stage Status: Acute Assessment and Plan: Stage III pressure ulcer on coccyx and sacrum -wound care following (11) Paroxysmal atrial fibrillation: Code(s): I48.0 - Paroxysmal atrial fibrillation Status: Chronic Assessment and Plan: Patient with paroxysmal AFib with intermittent rapid ventricular response, she does nonsustained tachycardia -patient was started on amiodarone overnight -discussed with Cardiology, will restart sotalol. Will turn off amiodarone infusion shortly after patient receives her sotalol Plan DVT prophylaxis: Patient had recent fall on rivaroxaban, currently holding chemoprophylaxis since patient had a fall with altered mental status. Continue SCDs Stress ulcer prophylaxis: Protonix Nutrition: Regular diet Code Status: Full code Critical Care Time Spent: 32 minutes Due to a high probability of clinically significant, life threatening deterioration, the patient required my highest level of preparedness to intervene emergently and I personally spent this critical care time directly and personally managing the patient. This critical care time included obtaining a history; examining the patient; pulse oximetry; ordering and review of studies; arranging urgent treatment with development of a management plan; evaluation of patient's response to treatment; frequent reassessment; and discussions with other providers. It was exclusive of separately billable procedures and treating other patients and teaching time. Please see Assessment and Plan section and the rest of the note for further information on patient assessment and treatment This dictation may have been done utilizing a voice recognition system. Attempts have been made to correct errors. However, there may be uncorrected grammatical, spelling, and recognitions errors present. Subjective Date/time seen: 07/11/25 09:14 Interval history: Reason for consult: Encephalopathy, hypercapnic respiratory failure, intermittent atrial fibrillation with rapid ventricular response, sepsis 07/11/2025: Patient seen and examined the ICU this morning, is awake, alert, able to answer questions appropriately. ABGs done last evening showed resolution of hypercapnic respiratory failure. Patient did drop her blood pressures overnight, was given 5% albumin 250 mL x1, despite which her blood pressures remain low, central line was inserted by the hospitalist. Patient was briefly on Levophed which was turned off earlier this morning. Urine output has been low, afebrile, hemodynamically stable. Intermittent atrial fibrillation with RVR Review of Systems Review of Systems: All systems reviewed & are unremarkable except as noted in HPI and below Exam Narrative: General: Ill-appearing female, appears older than her stated age HEENT:? pupils equal and reactive, sclera is clear Neck:? Hard cervical collar in place Respiratory: Better air entry bilaterally, no wheezing Cardiac:? Irregularly irregular, tachycardic Abdomen:? Soft, nontender, nondistended, hypoactive bowel sounds Extremities:? Upper extremities edematous, palpable pedal pulses on lower extremities Neuro:? Patient is on BiPAP, is awake, alert, able to answer questions and follows simple commands in all extremities Skin:? Bruising noted on upper extremities Psych:? Normal mentation, depressed affect Objective Data Vital Signs Vital Signs: Vital Signs - 24 hr 07/10/25 10:05 07/10/25 11:50 07/10/25 12:00 Temperature Pulse Rate 100 78 Respiratory Rate 29 H 26 H 30 H Blood Pressure Pulse Oximetry 99 91 Oxygen Delivery BiPAP BiPAP BiPAP Oxygen Flow Rate Fraction of Inspired Oxygen 07/10/25 12:00 07/10/25 12:00 07/10/25 14:00 Temperature 98.9 F Pulse Rate 78 57 L 59 L Respiratory Rate 24 H Blood Pressure 137/51 L Pulse Oximetry 99 Oxygen Delivery Oxygen Flow Rate Fraction of Inspired Oxygen 07/10/25 14:50 07/10/25 15:00 07/10/25 15:48 Temperature Pulse Rate 93 108 H 72 Respiratory Rate 25 H 22 H 21 H Blood Pressure 112/91 H Pulse Oximetry 99 94 Oxygen Delivery Oxygen Flow Rate Fraction of Inspired Oxygen 07/10/25 15:53 07/10/25 15:57 07/10/25 16:00 Temperature Pulse Rate 107 H 101 H Respiratory Rate 21 H 24 H Blood Pressure Pulse Oximetry 97 Oxygen Delivery BiPAP BiPAP Oxygen Flow Rate Fraction of Inspired Oxygen 07/10/25 16:00 07/10/25 16:00 07/10/25 17:00 Temperature 99.0 F 99.1 F Pulse Rate 131 H 112 H 103 H Respiratory Rate 22 H 22 H Blood Pressure 102/48 L 108/42 L Pulse Oximetry 100 100 Oxygen Delivery Oxygen Flow Rate Fraction of Inspired Oxygen 07/10/25 17:38 07/10/25 18:00 07/10/25 18:00 Temperature 99.2 F Pulse Rate 85 79 79 Respiratory Rate 25 H 21 H Blood Pressure 105/66 Pulse Oximetry 100 100 Oxygen Delivery BiPAP Oxygen Flow Rate Fraction of Inspired Oxygen 07/10/25 19:00 07/10/25 19:01 07/10/25 19:06 Temperature 99.4 F 99.4 F 99.4 F Pulse Rate 93 55 L 95 Respiratory Rate 21 H 25 H 23 H Blood Pressure 82/38 L 87/42 L Pulse Oximetry 100 Oxygen Delivery Oxygen Flow Rate Fraction of Inspired Oxygen 07/10/25 19:15 07/10/25 19:16 07/10/25 19:30 Temperature 99.3 F 99.3 F 99.3 F Pulse Rate 110 H 58 L 120 H Respiratory Rate 21 H 27 H 20 Blood Pressure 84/44 L 95/52 L Pulse Oximetry 99 99 99 Oxygen Delivery Oxygen Flow Rate Fraction of Inspired Oxygen 07/10/25 19:31 07/10/25 19:45 07/10/25 19:46 Temperature 99.3 F 99.2 F 99.2 F Pulse Rate 78 106 H 113 H Respiratory Rate 19 20 18 Blood Pressure 68/51 L Pulse Oximetry 100 100 100 Oxygen Delivery Oxygen Flow Rate Fraction of Inspired Oxygen 07/10/25 19:47 07/10/25 20:00 07/10/25 20:00 Temperature 99.2 F 99.2 F Pulse Rate 100 97 88 Respiratory Rate 20 20 Blood Pressure 91/67 L 97/51 L Pulse Oximetry 100 Oxygen Delivery Oxygen Flow Rate Fraction of Inspired Oxygen 07/10/25 20:01 07/10/25 20:15 07/10/25 20:16 Temperature 99.2 F 99.2 F 99.2 F Pulse Rate 95 119 H 80 Respiratory Rate 24 H 16 27 H Blood Pressure 132/107 H Pulse Oximetry 100 100 Oxygen Delivery Oxygen Flow Rate Fraction of Inspired Oxygen 07/10/25 20:33 07/10/25 20:34 07/10/25 20:45 Temperature 99.2 F 99.2 F 99.3 F Pulse Rate 94 99 110 H Respiratory Rate 14 15 23 H Blood Pressure 131/63 Pulse Oximetry 99 99 98 Oxygen Delivery Oxygen Flow Rate Fraction of Inspired Oxygen 07/10/25 20:46 07/10/25 20:46 07/10/25 20:46 Temperature 99.3 F Pulse Rate 80 80 104 H Respiratory Rate 24 H 24 H 20 Blood Pressure 119/64 Pulse Oximetry 96 100 Oxygen Delivery BiPAP Oxygen Flow Rate Fraction of Inspired Oxygen 07/10/25 20:51 07/10/25 21:00 07/10/25 21:00 Temperature 99.4 F Pulse Rate 104 H 103 H Respiratory Rate 24 H 21 H Blood Pressure 102/79 Pulse Oximetry 97 100 Oxygen Delivery BiPAP Oxygen Flow Rate Fraction of Inspired Oxygen 30 07/10/25 21:01 07/10/25 21:15 07/10/25 21:16 Temperature 99.4 F 99.3 F 99.3 F Pulse Rate 94 103 H 94 Respiratory Rate 22 H 20 20 Blood Pressure 97/63 L Pulse Oximetry 96 97 Oxygen Delivery Oxygen Flow Rate Fraction of Inspired Oxygen 07/10/25 22:00 07/10/25 22:00 07/10/25 22:10 Temperature 99.0 F Pulse Rate 71 71 105 H Respiratory Rate 23 H Blood Pressure 83/38 L 78/31 L Pulse Oximetry 100 Oxygen Delivery Oxygen Flow Rate Fraction of Inspired Oxygen 07/10/25 22:30 07/10/25 22:34 07/10/25 22:47 Temperature 98.9 F Pulse Rate 114 H 129 H 81 Respiratory Rate 25 H 27 H Blood Pressure 136/75 136/75 Pulse Oximetry 100 93 Oxygen Delivery BiPAP Oxygen Flow Rate Fraction of Inspired Oxygen 07/10/25 23:00 07/10/25 23:05 07/10/25 23:06 Temperature 99.1 F Pulse Rate 94 89 101 H Respiratory Rate 23 H Blood Pressure 127/63 127/63 127/63 Pulse Oximetry 97 Oxygen Delivery Oxygen Flow Rate Fraction of Inspired Oxygen 07/10/25 23:25 07/10/25 23:30 07/11/25 00:00 Temperature 99.2 F Pulse Rate 105 H 92 90 Respiratory Rate 23 H 26 H Blood Pressure 75/51 L 108/59 L 104/73 Pulse Oximetry 97 97 Oxygen Delivery Oxygen Flow Rate Fraction of Inspired Oxygen 07/11/25 00:00 07/11/25 00:00 07/11/25 00:30 Temperature 99.2 F Pulse Rate 132 H 102 H Respiratory Rate 15 Blood Pressure 116/49 L Pulse Oximetry 99 98 Oxygen Delivery BiPAP Oxygen Flow Rate Fraction of Inspired Oxygen 30 07/11/25 00:35 07/11/25 00:36 07/11/25 01:00 Temperature 99.2 F Pulse Rate 107 H 105 H 92 Respiratory Rate 28 H Blood Pressure 116/49 L 116/49 L 121/61 Pulse Oximetry 99 Oxygen Delivery Oxygen Flow Rate Fraction of Inspired Oxygen 07/11/25 01:15 07/11/25 01:30 07/11/25 02:00 Temperature Pulse Rate 91 105 H 91 Respiratory Rate 22 H Blood Pressure 135/85 90/56 L 98/57 L Pulse Oximetry 99 Oxygen Delivery Oxygen Flow Rate Fraction of Inspired Oxygen 07/11/25 02:00 07/11/25 02:00 07/11/25 02:00 Temperature 99.1 F Pulse Rate 91 85 85 Respiratory Rate 21 H Blood Pressure 98/57 L 98/57 L Pulse Oximetry 98 Oxygen Delivery Oxygen Flow Rate Fraction of Inspired Oxygen 07/11/25 02:19 07/11/25 02:19 07/11/25 02:24 Temperature Pulse Rate 93 93 93 Respiratory Rate 28 H 28 H 27 H Blood Pressure Pulse Oximetry 96 Oxygen Delivery BiPAP Oxygen Flow Rate Fraction of Inspired Oxygen 07/11/25 03:00 07/11/25 03:00 07/11/25 03:46 Temperature 99.1 F Pulse Rate 94 94 100 Respiratory Rate 20 Blood Pressure 112/76 112/76 141/83 H Pulse Oximetry 99 Oxygen Delivery Oxygen Flow Rate Fraction of Inspired Oxygen 07/11/25 03:46 07/11/25 04:00 07/11/25 04:00 Temperature 99.0 F Pulse Rate 100 100 Respiratory Rate 20 Blood Pressure 141/83 H Pulse Oximetry 90 95 Oxygen Delivery BiPAP Oxygen Flow Rate Fraction of Inspired Oxygen 30 07/11/25 04:31 07/11/25 05:00 07/11/25 05:00 Temperature 99.1 F Pulse Rate 78 108 H 108 H Respiratory Rate 18 Blood Pressure 123/71 95/66 L 95/66 L Pulse Oximetry 99 Oxygen Delivery Oxygen Flow Rate Fraction of Inspired Oxygen 07/11/25 05:09 07/11/25 06:00 07/11/25 06:00 Temperature Pulse Rate 107 H 104 H 105 H Respiratory Rate 30 H Blood Pressure 151/104 H Pulse Oximetry 99 Oxygen Delivery BiPAP Oxygen Flow Rate Fraction of Inspired Oxygen 07/11/25 06:06 07/11/25 06:08 07/11/25 07:00 Temperature Pulse Rate 105 H 111 H 104 H Respiratory Rate 20 29 H Blood Pressure 151/104 H 151/104 H 94/80 L Pulse Oximetry 95 98 Oxygen Delivery Oxygen Flow Rate Fraction of Inspired Oxygen 07/11/25 08:17 07/11/25 08:19 Temperature Pulse Rate 113 H Respiratory Rate 22 H Blood Pressure Pulse Oximetry 93 Oxygen Delivery High Flow Therapy with Na Oxygen Flow Rate 35 Fraction of Inspired Oxygen 35 Intake/Output Intake/Output: Intake & Output 11/08/07/09/25 07/10/25 07/11/25 23:59 23:59 23:59 23:59 Intake Total 1120 1052 1217.4 190.4 Output Total 1575 9340 410 150 Balance -455 -1198 807.4 40.4 Meds/Results Medications: Active Medications Generic Name Dose Route Start Last Admin Trade Name Freq PRN Reason Stop Dose Admin Acetaminophen 650 mg 07/07/25 08:10 07/08/25 12:24 Acetaminophen 325 Mg Tablet PO 650 mg Q4H PRN Administration Mild Pain (1-3) or Fever Acetaminophen 650 mg 07/10/25 17:36 07/10/25 21:18 Acetaminophen 650 Mg Suppository RECTAL 650 mg Q6H PRN Administration Fever Dextrose 12.5 gm 07/10/25 15:08 Dextrose 50% 25 Gm/50 Ml Syringe IV PUSH PRN PRN Hypoglycemia Protocol Enoxaparin Sodium 40 mg 07/08/25 09:00 07/11/25 08:43 Enoxaparin 40 Mg/0.4 Ml Syringe SUB-Q 40 mg DAILY IVONE Administration Furosemide 40 mg 07/08/25 09:00 07/10/25 11:01 Furosemide Inj 40 Mg/4 Ml Vial IV PUSH Not Given On Hold: 07/10/25 15:06 DAILY IVONE Glucagon 1 mg 07/10/25 15:08 Glucagon For Inj 1 Mg Vial IM PRN PRN Hypoglycemia Protocol Glucose 15 gm 07/10/25 15:08 Glucose Oral Gel 15 Gm Of Glucse In 37.5 Gm Tube PO PRN PRN Hypoglycemia Protocol Guaifenesin 1,200 mg 07/07/25 21:00 07/10/25 11:01 Guaifenesin 12 Hr 600 Mg Tabcr PO Not Given On Hold: 07/10/25 15:02 Q12HR IVONE Ceftriaxone Sodium 1 gm/ 50 mls @ 100 mls/hr 07/08/25 06:00 07/11/25 05:55 Sodium Chloride IVPB Infused Q24H IVONE Infusion Dextrose 1,000 mls @ 100 mls/hr 07/10/25 15:08 Dextrose 5% 1,000 Ml IVPB PRN PRN Hypoglycemia Protocol Vancomycin HCl 1,500 mg in 500 mls @ 250 mls/hr 07/11/25 14:00 Vancomycin 1,500 Mg/Ns 500 Ml IVPB Q18H IVONE Doxycycline Hyclate 100 mg/ 100 mls @ 100 mls/hr 07/10/25 21:00 07/11/25 08:43 Sodium Chloride IVPB 100 mls/hr Q12H IVONE Administration Norepinephrine Bitartrate 8 mg in 250 mls @ 1.875 mls/hr 07/10/25 20:35 07/01 09/24 06:06 Levophed 8 Mg/D5w 250 Ml IV CONT 0 mcg/min .Q24H IVONE 0 mls/hr Protocol Titration 1 MCG/MIN Potassium Chloride 100 mls @ 25 mls/hr 07/11/25 07:30 07/11/25 08:43 Kcl 40 Meq/Water 100 Ml IVPB 07/11/25 11:29 25 mls/hr ONCE ONE Administration Insulin Aspart 3 - 6 units 07/10/25 17:00 07/11/25 08:43 Insulin Aspart (*Bkc) 100 Units/Ml SUB-Q 3 units Q4HR IVONE Administration Protocol Insulin Glargine 8 units 07/08/25 09:00 07/10/25 11:10 Insulin Glargine (*Bkc) 100 Units/Ml SUB-Q Not Given On Hold: 07/10/25 15:05 DAILY IVONE Ipratropium Balsam 0.5 mg 07/10/25 15:30 07/11/25 07:50 Ipratropium Br 0.02% Inh Soln 0.5 Mg/2.5 Ml Vial INHALATION 0.5 mg Q6HRT IVONE Administration Levalbuterol HCl 0.63 mg 07/10/25 15:26 07/11/25 07:50 Levalbuterol Neb 1.25 Mg/3 Ml INHALATION 0.63 mg Q6HRT IVONE Administration Loperamide HCl 2 mg 07/07/25 14:57 Loperamide Hcl 2 Mg Capsule PO On Hold: 07/10/25 15:03 PRN PRN Diarrhea Losartan Potassium 25 mg 07/08/25 09:00 07/10/25 11:01 Losartan Potassium 25 Mg Tablet PO Not Given On Hold: 07/10/25 15:04 DAILY IVONE Methocarbamol 500 mg 07/07/25 14:53 07/09/25 08:32 Methocarbamol 500 Mg Tablet PO 500 mg On Hold: 07/10/25 15:03 Q8H PRN Administration muscle spasms Methylprednisolone Sodium Succinate 40 mg 07/11/25 00:00 07/11/25 05:01 Methylprednisolone Sod Succ 40 Mg Vial IV PUSH 40 mg Q6HR IVONE Administration Metoprolol Tartrate 25 mg 07/07/25 21:00 07/10/25 11:01 Metoprolol Tartrate 25 Mg Tablet BY MOUTH Not Given On Hold: 07/10/25 15:03 Q12HR IVONE Pantoprazole Sodium 40 mg 07/08/25 09:00 07/10/25 11:02 Pantoprazole 40 Mg Tablet PO Not Given On Hold: 07/10/25 15:05 QAM IVONE Pantoprazole Sodium 40 mg 07/10/25 15:45 07/11/25 08:42 Pantoprazole Sodium Iv 40 Mg Vial IV PUSH 40 mg QAM IVONE Administration Perflutren Lipid Microsphere 0 ml 07/10/25 13:42 Perflutren Lipid Microspheres 1.5 Ml Vial Diluted To 10 Ml Total Volume IV PUSH 07/13/25 13:42 ONCE PRN adequate visualization Protocol Pramipexole Dihydrochloride 0.5 mg 07/07/25 21:00 07/09/25 20:52 Pramipexole 0.5 Mg Tablet PO 0.5 mg On Hold: 07/10/25 15:03 HS IVONE Administration Pravastatin Sodium 10 mg 07/08/25 09:00 07/10/25 11:02 Pravastatin Sodium 10 Mg Tablet BY MOUTH Not Given On Hold: 07/10/25 15:05 DAILY IVONE Sodium Chloride 10 ml 07/10/25 22:00 07/11/25 05:01 Central Line Flush IV PUSH 10 ml Q8HR IVONE Administration Sodium Chloride 20 ml 07/10/25 20:33 Central Line Flush IV PUSH PRN PRN after blood draws Sotalol HCl 80 mg 07/07/25 21:00 07/10/25 11:02 Sotalol Hcl 80 Mg Tablet PO Not Given On Hold: 07/10/25 15:03 Q12HR IVONE Trimethobenzamide HCl 200 mg 07/07/25 14:56 Trimethobenzamide Hcl 200 Mg/2 Ml Vial IM Q6H PRN Nausea And Vomiting Vitamin D 25 mcg 07/08/25 09:00 07/10/25 11:01 Cholecalciferol (Vitamin D3) 25 Mcg (1,000 Units) Tablet PO Not Given On Hold: 07/10/25 15:02 DAILY [facility] Radiology Results: ITS Impressions Cervical Spine CT 07/07/25 06:30 IMPRESSION: HEAD: 1. No acute intracranial findings. 2. Bilateral mastoiditis. C-SPINE: 1. No acute fracture. 2. Ill-defined fluid and postoperative changes posterior to upper cervical spine. 3. Extensive bilateral upper lung airspace disease, and left pleural effusion. Chest/Abdomen/Pelvis CT 07/07/25 07:13 IMPRESSION: 1. Diffuse lung disease, likely a combination of pneumonia in the upper lobes and left lower lobe and mild pulmonary edema. 2. Small pleural effusions. 3. Colitis involving the rectosigmoid. Head CT 07/10/25 15:36 Impression: 1.No acute intracranial abnormality. Chest X-Ray 07/11/25 07:09 Impression: 1: Mild interstitial edema. Labs Labs: Laboratory Results - last 24 hr 07/10/25 07/10/25 07/10/25 09:08 10:19 11:50 WBC 8.9 RBC 3.31 L Hgb 9.3 L Hct 31.8 L MCV 96.1 MCH 28.1 MCHC 29.2 L RDW 19.3 H Plt Count 302 MPV 11.1 H Immature Gran % (Auto) Neut % (Auto) Lymph % (Auto) [place] % (Auto) Eos % (Auto) Baso % (Auto) Lymph # (Auto) [place] # (Auto) Eos # (Auto) Baso # (Auto) Abs Immat Gran (auto) Absolute Neuts (auto) Absolute Nucleated RBC Band Neutrophils % Nucleated RBC % Platelet Estimate Hypochromasia Anisocytosis Ovalocytes [place] Cells Schistocytes Puncture Site Left radial ABG pH 7.318 L ABG pCO2 77.7 H* ABG pO2 104.6 H ABG PO2/FiO2 Ratio 3.74 ABG HCO3 39.0 H ABG O2 Saturation 97.1 ABG O2 Content 13.9 L ABG Base Excess 10.6 A-a Gradient 3.4 Oxyhemoglobin 95.6 Carboxyhemoglobin Methemoglobin Reduced Hemoglobin Total Hemoglobin 10.2 L O2 Delivery Device Nasal cannula O2 Liters/Min 2.0 Vent Rate FiO2 28 Expiratory Pressure Inspiratory Pressure Sodium 132 L Potassium 3.7 Chloride 94 L Carbon Dioxide 35 H Anion Gap 3 L BUN 28 H Creatinine 0.63 L Estim Creat Clear Calc 63 Estimated GFR > 60 Glucose 180 H POC Capillary Glucose 165 H Lactic Acid Calcium 8.9 Phosphorus Magnesium 1.7 Total Bilirubin AST ALT Alkaline Phosphatase Ammonia Total Creatine Kinase C-Reactive Protein 2.6 H NT-Pro-B Natriuret Pep 3860 H Total Protein Albumin Procalcitonin 0.1 TSH 1.520 Free T4 1.28 Nasal MRSA (PCR) Influenza A (RT-PCR) Influenza B (RT-PCR) RSV (RT-PCR) SARS-CoV-2 RNA (RT-PCR) 07/10/25 07/10/25 07/10/25 13:10 14:35 15:44 WBC RBC Hgb Hct MCV MCH MCHC RDW Plt Count MPV Immature Gran % (Auto) Neut % (Auto) Lymph % (Auto) [place] % (Auto) Eos % (Auto) Baso % (Auto) Lymph # (Auto) [place] # (Auto) Eos # (Auto) Baso # (Auto) Abs Immat Gran (auto) Absolute Neuts (auto) Absolute Nucleated RBC Band Neutrophils % Nucleated RBC % Platelet Estimate Hypochromasia Anisocytosis Ovalocytes [place] Cells Schistocytes Puncture Site Right radial ABG pH 7.322 L ABG pCO2 78.7 H* ABG pO2 152.4 H ABG PO2/FiO2 Ratio 3.05 ABG HCO3 39.8 H ABG O2 Saturation 98.7 ABG O2 Content 14.3 L ABG Base Excess 11.4 A-a Gradient 115.6 Oxyhemoglobin 96.8 Carboxyhemoglobin Methemoglobin Reduced Hemoglobin Total Hemoglobin 10.3 L O2 Delivery Device Non-invasive vent O2 Liters/Min Not Reportable Vent Rate 14 FiO2 50 Expiratory Pressure 8 Inspiratory Pressure 18 Sodium Potassium Chloride Carbon Dioxide Anion Gap BUN Creatinine Estim Creat Clear Calc Estimated GFR Glucose POC Capillary Glucose 141 H 151 H Lactic Acid Calcium Phosphorus Magnesium Total Bilirubin AST ALT Alkaline Phosphatase Ammonia Total Creatine Kinase C-Reactive Protein NT-Pro-B Natriuret Pep Total Protein Albumin Procalcitonin TSH Free T4 Nasal MRSA (PCR) Influenza A (RT-PCR) Influenza B (RT-PCR) RSV (RT-PCR) SARS-CoV-2 RNA (RT-PCR) 07/10/25 07/10/25 07/10/25 15:54 16:15 17:18 WBC RBC Hgb Hct MCV MCH MCHC RDW Plt Count MPV Immature Gran % (Auto) Neut % (Auto) Lymph % (Auto) [place] % (Auto) Eos % (Auto) Baso % (Auto) Lymph # (Auto) [place] # (Auto) Eos # (Auto) Baso # (Auto) Abs Immat Gran (auto) Absolute Neuts (auto) Absolute Nucleated RBC Band Neutrophils % Nucleated RBC % Platelet Estimate Hypochromasia Anisocytosis Ovalocytes [place] Cells Schistocytes Puncture Site Left radial ABG pH 7.525 H* ABG pCO2 44.7 ABG pO2 85.9 ABG PO2/FiO2 Ratio 2.86 ABG HCO3 36.1 H ABG O2 Saturation 97.3 ABG O2 Content 13.4 L ABG Base Excess 12.1 A-a Gradient 75.5 Oxyhemoglobin 95.4 Carboxyhemoglobin 1.4 Methemoglobin 0.2 Reduced Hemoglobin 3.0 Total Hemoglobin 9.9 L O2 Delivery Device Non-invasive vent O2 Liters/Min Not Reportable Vent Rate 20 FiO2 30 Expiratory Pressure Not Reportable Inspiratory Pressure Not Reportable Sodium Potassium Chloride Carbon Dioxide Anion Gap BUN Creatinine Estim Creat Clear Calc Estimated GFR Glucose POC Capillary Glucose Lactic Acid Calcium Phosphorus Magnesium Total Bilirubin AST ALT Alkaline Phosphatase Ammonia < 9 L Total Creatine Kinase C-Reactive Protein NT-Pro-B Natriuret Pep Total Protein Albumin Procalcitonin TSH Free T4 Nasal MRSA (PCR) Detected A* Influenza A (RT-PCR) Negative Influenza B (RT-PCR) Negative RSV (RT-PCR) Negative SARS-CoV-2 RNA (RT-PCR) Negative 07/10/25 07/11/25 07/11/25 20:10 00:16 04:44 WBC 6.8 RBC 3.07 L Hgb 8.7 L Hct 28.6 L MCV 93.2 MCH 28.3 MCHC 30.4 L RDW 19.4 H Plt Count 293 MPV 10.7 H Immature Gran % (Auto) 0.7 H Neut % (Auto) 92.0 H Lymph % (Auto) 4.7 L Republic % (Auto) 2.5 L Eos % (Auto) 0.0 Baso % (Auto) 0.1 L Lymph # (Auto) 0.32 L Republic # (Auto) 0.2 Eos # (Auto) 0.0 Baso # (Auto) 0.0 Abs Immat Gran (auto) 0.05 H Absolute Neuts (auto) 6.2 Absolute Nucleated RBC 0.000 Band Neutrophils % Not Reportable Nucleated RBC % 0.0 Platelet Estimate Adequate Hypochromasia 1+ Anisocytosis 1+ Ovalocytes 1+ Kiesha Cells 1+ Schistocytes None seen Puncture Site ABG pH ABG pCO2 ABG pO2 ABG PO2/FiO2 Ratio ABG HCO3 ABG O2 Saturation ABG O2 Content ABG Base Excess A-a Gradient Oxyhemoglobin Carboxyhemoglobin Methemoglobin Reduced Hemoglobin Total Hemoglobin O2 Delivery Device O2 Liters/Min Vent Rate FiO2 Expiratory Pressure Inspiratory Pressure Sodium 133 L Potassium 3.5 Chloride 94 L Carbon Dioxide 34 H Anion Gap 5 BUN 32 H Creatinine 0.87 Estim Creat Clear Calc 47 Estimated GFR > 60 Glucose 204 H POC Capillary Glucose 159 H 211 H 228 H Lactic Acid 1.7 Calcium 8.5 Phosphorus 3.3 Magnesium 1.6 Total Bilirubin 0.4 AST 27 ALT 19 Alkaline Phosphatase 155 H Ammonia Total Creatine Kinase < 20 L C-Reactive Protein 1.6 H NT-Pro-B Natriuret Pep Total Protein 5.6 L Albumin 3.1 L Procalcitonin TSH 1.120 Free T4 Nasal MRSA (PCR) Influenza A (RT-PCR) Influenza B (RT-PCR) RSV (RT-PCR) SARS-CoV-2 RNA (RT-PCR) 07/11/25 08:29 WBC RBC Hgb Hct MCV MCH MCHC RDW Plt Count MPV Immature Gran % (Auto) Neut % (Auto) Lymph % (Auto) Republic % (Auto) Eos % (Auto) Baso % (Auto) Lymph # (Auto) Republic # (Auto) Eos # (Auto) Baso # (Auto) Abs Immat Gran (auto) Absolute Neuts (auto) Absolute Nucleated RBC Band Neutrophils % Nucleated RBC % Platelet Estimate Hypochromasia Anisocytosis Ovalocytes Kiesha Cells Schistocytes Puncture Site ABG pH ABG pCO2 ABG pO2 ABG PO2/FiO2 Ratio ABG HCO3 ABG O2 Saturation ABG O2 Content ABG Base Excess A-a Gradient Oxyhemoglobin Carboxyhemoglobin Methemoglobin Reduced Hemoglobin Total Hemoglobin O2 Delivery Device O2 Liters/Min Vent Rate FiO2 Expiratory Pressure Inspiratory Pressure Sodium Potassium Chloride Carbon Dioxide Anion Gap BUN Creatinine Estim Creat Clear Calc Estimated GFR Glucose POC Capillary Glucose 226 H Lactic Acid Calcium Phosphorus Magnesium Total Bilirubin AST ALT Alkaline Phosphatase Ammonia Total Creatine Kinase C-Reactive Protein NT-Pro-B Natriuret Pep Total Protein Albumin Procalcitonin TSH Free T4 Nasal MRSA (PCR) Influenza A (RT-PCR) Influenza B (RT-PCR) RSV (RT-PCR) SARS-CoV-2 RNA (RT-PCR) Quality VTE Prophylaxis VTE prophylaxis: mechanical ordered
[2025-07-11] MEDS: SOTALOL HCL 80 MG TABLET PO ×2 (10:33→20:11)
[2025-07-11] MEDS: CEFEPIME 2 GM in SODIUM CHLORIDE 0.9% IV 50 ML 100 ML IVPB ×2 (10:33→20:11)
--- NOTE | 2025-07-11 10:56 | PCFNICU ---
ICU Rounding Note: Pt current nutrition is Regular with Jamar BID and Ensure Plus High Protein BID. Last recorded weight is 75.9 kg, down from 84.9 kg on admit. Bowel Motility: Last reported BM 07/09 Labs Reviewed:Glu 204, Na 133, BUN 32 Meds Noted: Lasix, Vit D, ,Protonix, Lantus, NovoLog. Skin: Stage 3-Sacrum Additional Notes: Patient currently on regular diet, tolerating. Diet supplements of Ensure Plus High Protein providing an additional 350 kcal and 20 gm protein. Jamar BID 90 kcal/7 gm arginine/7 gm glutamine/2.5 gm protein. Agree with diet orders. Following daily in ICU rounds. Monitoring intakes, weights, labs, supplement tolerance, skin, plan of care every 5 days.
[2025-07-11] MEDS: ACETAMINOPHEN 325 MG TABLET 650 MG PO ×2 (11:00→20:25)
[2025-07-11] MEDS: PERFLUTREN LIPID MICROSPHERES 1.5 ML VIAL DILUTED TO 10 ML TOTAL VOLUME IV PUSH (11:12)
--- NOTE | 2025-07-11 11:12 | IVDEFINITY ---
Prior to administration of IV Definity the patient was educated on the risks and benefits of the imaging enhancing agent including potential adverse side effects. The patient verbalized understanding. Allergies were verified. No exclusion criteria were identified and at least one of the following inclusion criteria were met: 1) physician request, 2) patient technically difficult to image (per the [place] [employer] guidelines of two or more segments not discernable within the apical view), or 3) questionable left ventricular function. ?
--- NOTE | 2025-07-11 13:42 | ECHO_ITS ---
Patient Info Name: Laura Clifford Age: 75 years : 1950 Gender: Female Ht: 61 in Wt: 164 lbs BSA: 1.82 m2 HR: 101 bpm BP: 151 / 104 mmHg Technical Quality: Good Exam Date: 07/11/2025 9:11 AM Patient Status: I Admit Date: 07/08/2025 Exam Type: CA echo dop color flow w con Complete two-dimensional, color flow and Doppler transthoracic echocardiogram is performed with contrast to opacify the left ventricle and to improve the deliniation of the left ventricle endocardial borders. Staff Referring Physician: Bela Allen MD Black Top Raker: Shaye Dasilva Attending Provider: Nicki Valadez Contrast/Agitated Saline Contrast/Ag. Saline: Definity Amount: 2.00 ml Summary 1. Definity contrast administered improved wall motion interpretation. 2. Left ventricular chamber dimension is normal. 3. Left ventricular systolic function is normal, estimated at 65-70. 4. There is moderate concentric increased left ventricular wall thickness. 5. The left ventricular diastolic function is abnormal. 6. E/e' 26 is significantly elevated. 7. Right ventricular systolic function is reduced based on an abnormal TAPSE 1.4 cm. 8. Left atrial chamber dimension is mildly enlarged. 9. There is moderate aortic valve sclerosis. 10. The mitral valve has a moderately calcified annulus. 11. There is trace mitral valve regurgitation. 12. There is moderate tricuspid valve regurgitation. 13. Severe pulmonary hypertension, estimated pulmonary arterial systolic pressure is 60 mmHg. 14. There is trace pulmonic regurgitation. Left Ventricle E/e' 26 is significantly elevated. Left ventricular chamber dimension is normal. Left ventricular systolic function is normal, estimated at 65-70. There is moderate concentric increased left ventricular wall thickness. The left ventricular diastolic function is abnormal. Definity contrast administered improved wall motion interpretation. Right Ventricle Right ventricular chamber dimension is not well visualized. Right ventricular systolic function is reduced based on an abnormal TAPSE 1.4 cm. Left Atria Left atrial chamber dimension is mildly enlarged. Right Atria Right atrial chamber dimension is normal. Aortic Valve The aortic valve is trileaflet. There is moderate aortic valve sclerosis. There is no aortic valve stenosis. There is no aortic valve regurgitation. Pulmonic Valve There is trace pulmonic regurgitation. Mitral Valve The mitral valve has a moderately calcified annulus. There is no mitral valve stenosis. There is trace mitral valve regurgitation. Tricuspid Valve There is moderate tricuspid valve regurgitation. Severe pulmonary hypertension, estimated pulmonary arterial systolic pressure is 60 mmHg. Pericardium/Pleural There is no pericardial effusion. Inferior Vena Cava Normal inferior vena cava with >50% collapse upon inspiration consistent with normal right atrial pressure, 5 mmHg. Aorta The aortic root size at the sinus of Valsalva is normal. Left Ventricular Outflow Tract Name Value Normal LVOT 2D LVOT Diameter 2.0 cm LVOT Doppler LVOT Peak Velocity 102 cm/s LVOT Peak Gradient 4 mmHg LVOT Mean Gradient 2 mmHg LVOT VTI 19 cm LVOT Stroke Volume 61 ml LVOT CO 6.1 l/min LVOT CI 3.4 l/min/m2 Pulmonic Valve Name Value Normal RVOT Doppler RVOT Peak Velocity 74 cm/s RVOT Peak Gradient 2 mmHg PV Doppler PV Peak Velocity 108 cm/s PV Peak Gradient 5 mmHg Mitral Valve Name Value Normal MV Diastolic Function MV E Peak Velocity 168 cm/s MV A Peak Velocity 94 cm/s MV E/A 1.8 MV Decel Time (PW) 385 ms MV Annular TDI MV E/e' (Septal) 24.9 MV E/e' (Lateral) 28.8 MV E/e' (Average) 26.9 Tricuspid Valve Name Value Normal TV Regurgitation Doppler TR Peak Velocity 372 cm/s TR Peak Gradient 42 mmHg Estimated PAP/RSVP RA Pressure 5 mmHg <=5 PA Systolic Pressure 60 mmHg <36 RV Systolic Pressure 60 mmHg <36 TV Annular TDI TV Lateral Krysta s' Velocity 6.6 cm/s >=9.5 Aortic Valve Name Value Normal AV Doppler AV Peak Velocity 159 cm/s AV Peak Gradient 10 mmHg AV Area (Cont Eq Umang) 2.0 cm2 AV DI (Umang) 0.64 AV Regurgitation 2D LVOT Area 3.2 cm2 Ventricles Name Value Normal LV Dimensions 2D/MM IVS Diastolic Thickness (2D) 1.2 cm 0.6-1.0 LVID Diastole (2D) 3.8 cm 3.8-5.2 LVIW Diastolic Thickness (2D) 1.2 cm 0.6-0.9 LVID Systole (2D) 2.9 cm 2.2-3.5 LVOT Diameter 2.0 cm LV Mass (2D Cubed) 158.49 g 67.00-162.00 LV Mass Index (2D Cubed) 87 g/m2 43-95 Relative Wall Thickness (2D) 0.65 <=0.42 LV Fractional Shortening/Ejection Fraction 2D/MM LV Fractional Shortening (2D) 23 % 27-45 LV EF (2D Teichmilenaz) 46 % LV Diastolic Volume (4C MOD) 82 ml LV EF (4C MOD) 63 % LV Diastolic Volume (2C MOD) 83 ml LV EF (2C MOD) 66 % LV Diastolic Volume (BP MOD) 86 ml 46-106 LV Diastolic Volume Index (BP MOD) 47 ml/m2 29-61 LV Systolic Volume (BP MOD) 31 ml 14-42 LV Systolic Volume Index (BP MOD) 17 ml/m2 8-24 LV EF (BP MOD) 64 % 54-74 LV Diastolic Length (4C) 7.2 cm LV Systolic Length (4C) 5.7 cm LV Stroke Volume (4C MOD) 52 ml Atria Name Value Normal LA Dimensions LA Volume (4C A-L) 34 ml LA Volume (BP A-L) 39 ml RA Dimensions RA Systolic Major [place] Length (4C) 5.5 cm 2.2-2.8 RA Area (4C) 15.4 cm2 <=18.0 Report Signatures
[2025-07-11] MEDS: VANCOMYCIN 1,500 MG/NS 500 ML 1,500 MG/500 ML BAG 250 MG IVPB (14:12)
--- NOTE | 2025-07-11 15:21 | PCOTNOTE ---
Attempted to see patient this afternoon. Patient has a femoral line. RN reports it's getting removed today. Will continue to attempt.
[2025-07-12] VITALS (43 sets, daily range): BP systolic 94–187; BP diastolic 55–137; PULSE 60–146; RESP 16–78; TEMP 36.4–37.4; O2SAT 82–100
[2025-07-12] MEDS: INSULIN ASPART (*BKC) 100 UNITS/ML SUB-Q ×3 (01:16→07:42)
[2025-07-12] MEDS: IPRATROPIUM BR 0.02% INH SOLN 0.5 MG/2.5 ML VIAL INHALATION ×4 (01:27→20:05)
[2025-07-12] MEDS: TRIMETHOBENZAMIDE HCL 200 MG/2 ML VIAL IM (04:26)
[2025-07-12 04:55] LABS: Alveolar/Arterial O2 Gradient 287.6 mmHg; Carboxyhemoglobin 1.4 % THb (0-2.0); Fractional Inspired Oxygen 60 %; HCO3 ABG 32.5 mEq/l (22.0-26.0); Methemoglobin ABG 0.3 %THb (0-1.5); Oxygen Content ABG 13.2 %vol (16.0-22.0); Oxygen Saturation ABG 92.8 % (95.0-100.0); PO2 ABG 71.1 mmHg (80.0-100.0); PO2 FiO2 Ratio Arterial Blood 1.18 %; Reduced Hemoglobin 8.2 %THb (0-5.0)
[2025-07-12 04:58] LABS: PCO2 ABG 62.8 mmHg (35.0-45.0); Site Drawn RIGHT BRACHIAL
[2025-07-12 04:59] LABS: Liters per Minute 45.0 LPM; Modified Allen's Test Pass
[2025-07-12 07:20] LABS: Hematocrit 33.4 % (37.0-47.0); Hemoglobin 10.1 g/dL (12.0-15.0); Immature Granulocyte Percent A 0.9 % (0-0.5); Lymphocytes Absolute Auto 0.62 K/mm3 (0.9-3.2); Mean Corpuscular HGB Conc 30.2 g/dl (32-36); Mean Corpuscular Hemoglobin 28.2 pg (26-34); Mean Corpuscular Volume 93.3 fl (80-100); Nucleated Red Blood Cells Absolute Auto 0.000 K/mm3 (0.0-0.012); Nucleated Red Blood Cells Perc 0.0 % (0.0-0.2); Platelet Count Result 410 k/mm3 (150-375); Red Blood Count 3.58 M/mm3 (4.2-5.4); White Blood Count 12.9 K/mm3 (4.5-10.0)
--- NOTE | 2025-07-12 07:43 | P.PNCA_ITS ---
Progress Note: A&P Assessment and Plan (1) Paroxysmal atrial fibrillation: Code(s): I48.0 - Paroxysmal atrial fibrillation Status: Chronic Assessment and Plan: In Sinus rhythm with intermittent short runs of atrial tachycardia due to PAT. Back on Sotalol 80 mg BID. Normally on Xarelto. On Metoprolol prn for tachycardia. 07/11/25 Echo: EF 65-70%, mod LVH, diastolic dysfunction with E/e' 26, mild LAE, mod MAC, trace MR, mod TR, RVSP 60 mmHg, trace PI. No further cardiac workup is needed. Will sign off, please call with any questions. (2) Essential hypertension: Code(s): I10 - Essential (primary) hypertension Status: Acute Assessment and Plan: Stable. (3) Dyslipidemia: Code(s): E78.5 - Hyperlipidemia, unspecified Status: Acute Assessment and Plan: On Pravastatin. 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 (5) Chronic obstructive pulmonary disease, unspecified: Code(s): J44.9 - Chronic obstructive pulmonary disease, unspecified Status: Acute (6) Pneumonia: Code(s): J18.9 - Pneumonia, unspecified organism Status: Acute Assessment and Plan: On antibiotics as per hospitalist. (7) UTI (urinary tract infection): Code(s): N39.0 - Urinary tract infection, site not specified Status: Acute Assessment and Plan: On antibiotics as per hospitalist. Subjective Date/time seen: 07/12/25 07:43 Interval history: Alert and oriented. No chest pain or sob. Exam Const: General: cooperative, healthy appearing and comfortable Resp: Auscultation: no crackles, no rales, no rhonchi, no wheezes and diminished lung sounds Cardio: Rate: regular rate Rhythm: regular rhythm Heart sounds: no murmurs Peripheral pulses: dorsalis pedis present Extrem: Right lower extremity: no edema Left lower extremity: no edema Objective Data Vital Signs Vital Signs: Vital Signs - 24 hr 07/11/25 08:00 07/11/25 08:00 07/11/25 08:00 Temperature 99.1 F Pulse Rate 109 H 107 H Respiratory Rate 25 H Blood Pressure 112/91 H Pulse Oximetry 94 98 Oxygen Delivery High Flow Therapy with Na Oxygen Flow Rate 35 Fraction of Inspired Oxygen 35 07/11/25 08:00 07/11/25 08:00 07/11/25 08:17 Temperature Pulse Rate 111 H 111 H 113 H Respiratory Rate 22 H Blood Pressure 117/66 112/91 H Pulse Oximetry Oxygen Delivery Oxygen Flow Rate Fraction of Inspired Oxygen 07/11/25 08:19 07/11/25 08:30 07/11/25 09:00 Temperature Pulse Rate 110 H 114 H Respiratory Rate 22 H 21 H Blood Pressure 124/69 Pulse Oximetry 93 96 Oxygen Delivery High Flow Therapy with Na Oxygen Flow Rate 35 Fraction of Inspired Oxygen 35 07/11/25 09:51 07/11/25 10:00 07/11/25 10:00 Temperature Pulse Rate 120 H 104 H 120 H Respiratory Rate 34 H Blood Pressure 145/132 H Pulse Oximetry 89 L Oxygen Delivery Oxygen Flow Rate Fraction of Inspired Oxygen 07/11/25 10:00 07/11/25 10:33 07/11/25 10:48 Temperature Pulse Rate 120 H 107 H Respiratory Rate Blood Pressure 145/132 H 126/73 Pulse Oximetry Oxygen Delivery Oxygen Flow Rate Fraction of Inspired Oxygen 07/11/25 11:00 07/11/25 11:20 07/11/25 11:37 Temperature Pulse Rate 127 H 93 Respiratory Rate 28 H Blood Pressure 139/76 100/84 Pulse Oximetry 92 93 Oxygen Delivery High Flow Therapy with Na Oxygen Flow Rate 35 Fraction of Inspired Oxygen 07/11/25 12:00 07/11/25 12:00 07/11/25 12:07 Temperature Pulse Rate 105 H 100 94 Respiratory Rate 29 H Blood Pressure 105/73 105/73 Pulse Oximetry 88 L Oxygen Delivery Oxygen Flow Rate Fraction of Inspired Oxygen 07/11/25 13:00 07/11/25 14:00 07/11/25 14:00 Temperature 99.7 F H Pulse Rate 98 120 H 96 Respiratory Rate 27 H 27 H Blood Pressure 125/59 L 127/76 Pulse Oximetry 90 90 Oxygen Delivery Oxygen Flow Rate Fraction of Inspired Oxygen 07/11/25 14:00 07/11/25 14:29 07/11/25 14:34 Temperature Pulse Rate 116 H 95 99 Respiratory Rate 21 H 26 H Blood Pressure 120/79 Pulse Oximetry Oxygen Delivery Oxygen Flow Rate Fraction of Inspired Oxygen 07/11/25 15:00 07/11/25 15:49 07/11/25 15:51 Temperature 99.3 F Pulse Rate 99 87 Respiratory Rate 31 H 33 H Blood Pressure 123/90 147/50 H Pulse Oximetry 91 91 90 Oxygen Delivery High Flow Therapy with Na Oxygen Flow Rate 35 Fraction of Inspired Oxygen 07/11/25 16:00 07/11/25 16:49 07/11/25 17:56 Temperature 99.0 F Pulse Rate 106 H 104 H 122 H Respiratory Rate 37 H Blood Pressure 132/69 Pulse Oximetry 93 Oxygen Delivery Oxygen Flow Rate Fraction of Inspired Oxygen 07/11/25 17:57 07/11/25 19:00 07/11/25 19:09 Temperature 99.1 F 99.5 F Pulse Rate 120 H 126 H 106 H Respiratory Rate 35 H 26 H 24 H Blood Pressure 138/64 121/76 Pulse Oximetry 92 94 Oxygen Delivery Oxygen Flow Rate Fraction of Inspired Oxygen 07/11/25 19:11 07/11/25 19:18 07/11/25 20:00 Temperature Pulse Rate 122 H 113 H 115 H Respiratory Rate 24 H 20 Blood Pressure 153/83 H Pulse Oximetry 93 Oxygen Delivery High Flow Therapy with Na Oxygen Flow Rate 35 Fraction of Inspired Oxygen 35 07/11/25 20:00 07/11/25 20:00 07/11/25 20:00 Temperature 99.3 F Pulse Rate 107 H 107 H 90 Respiratory Rate 20 29 H Blood Pressure 153/83 H Pulse Oximetry 92 92 Oxygen Delivery High Flow Therapy with Na Oxygen Flow Rate 40 Fraction of Inspired Oxygen 40 07/11/25 20:11 07/11/25 21:00 07/11/25 21:47 Temperature 99.2 F Pulse Rate 115 H 111 H 95 Respiratory Rate 34 H 22 H Blood Pressure 148/52 H Pulse Oximetry 88 L 91 Oxygen Delivery High Flow Therapy with Na Oxygen Flow Rate 40 Fraction of Inspired Oxygen 40 07/11/25 22:00 07/11/25 22:00 07/11/25 23:00 Temperature 99.3 F 99 F Pulse Rate 107 H 108 H 100 Respiratory Rate 31 H 36 H Blood Pressure 132/97 H 143/92 H Pulse Oximetry 92 88 L Oxygen Delivery Oxygen Flow Rate Fraction of Inspired Oxygen 07/12/25 00:00 07/12/25 00:00 07/12/25 00:00 Temperature 98.2 F Pulse Rate 104 H 108 H 108 H Respiratory Rate 25 H Blood Pressure 146/102 H Pulse Oximetry 92 85 L Oxygen Delivery High Flow Therapy with Na Oxygen Flow Rate 40 Fraction of Inspired Oxygen 45 07/12/25 00:57 07/12/25 01:24 07/12/25 01:28 Temperature 98.8 F Pulse Rate 105 H 121 H 102 H Respiratory Rate 22 H 22 H 22 H Blood Pressure 148/90 H Pulse Oximetry 93 91 Oxygen Delivery High Flow Therapy with Na Oxygen Flow Rate 40 Fraction of Inspired Oxygen 45 07/12/25 01:37 07/12/25 02:00 07/12/25 02:00 Temperature 99.4 F Pulse Rate 100 90 95 Respiratory Rate 20 22 H Blood Pressure 138/85 Pulse Oximetry 92 Oxygen Delivery Oxygen Flow Rate Fraction of Inspired Oxygen 07/12/25 02:52 07/12/25 03:00 07/12/25 04:00 Temperature 99 F Pulse Rate 99 109 H 146 H Respiratory Rate 22 H Blood Pressure 165/109 H Pulse Oximetry 86 L 90 Oxygen Delivery High Flow Therapy with Na Oxygen Flow Rate 40 Fraction of Inspired Oxygen 50 07/12/25 04:00 07/12/25 04:34 07/12/25 04:40 Temperature 97.7 F Pulse Rate 146 H 109 H 94 Respiratory Rate 20 24 H Blood Pressure 187/137 H Pulse Oximetry 82 L 91 90 Oxygen Delivery High Flow Therapy with Na High Flow Therapy with Na Oxygen Flow Rate 45 45 Fraction of Inspired Oxygen 60 60 07/12/25 05:00 07/12/25 06:00 07/12/25 06:00 Temperature 98 F Pulse Rate 99 94 102 H Respiratory Rate 24 H 18 Blood Pressure 134/86 94/63 L Pulse Oximetry 91 97 Oxygen Delivery Oxygen Flow Rate Fraction of Inspired Oxygen 07/12/25 06:28 07/12/25 07:00 07/12/25 07:27 Temperature Pulse Rate 94 81 Respiratory Rate 30 H Blood Pressure 108/89 Pulse Oximetry 91 93 92 Oxygen Delivery High Flow Therapy with Na High Flow Therapy with Na Oxygen Flow Rate 45 45 Fraction of Inspired Oxygen 45 45 07/12/25 07:27 Temperature Pulse Rate 90 Respiratory Rate 24 H Blood Pressure Pulse Oximetry Oxygen Delivery Oxygen Flow Rate Fraction of Inspired Oxygen Intake/Output Intake/Output: Intake & Output 07/09/25 07/10/25 07/11/25 07/12/25 23:59 23:59 23:59 23:59 Intake Total 1052 1217.4 1709.2 Output Total 2250 410 425 450 Balance -1198 807.4 1284.2 -450 Meds/Results Medications: Active Medications Generic Name Dose Route Start Last Admin Trade Name Freq PRN Reason Stop Dose Admin Acetaminophen 650 mg 07/07/25 08:10 07/11/25 20:25 Acetaminophen 325 Mg Tablet PO 650 mg Q4H PRN Administration Mild Pain (1-3) or Fever Acetaminophen 650 mg 07/10/25 17:36 07/10/25 21:18 Acetaminophen 650 Mg Suppository RECTAL 650 mg Q6H PRN Administration Fever Dextrose 12.5 gm 07/10/25 15:08 Dextrose 50% 25 Gm/50 Ml Syringe IV PUSH PRN PRN Hypoglycemia Protocol Enoxaparin Sodium 40 mg 07/08/25 09:00 07/11/25 08:43 Enoxaparin 40 Mg/0.4 Ml Syringe SUB-Q 40 mg DAILY IVONE Administration Furosemide 40 mg 07/08/25 09:00 07/10/25 11:01 Furosemide Inj 40 Mg/4 Ml Vial IV PUSH Not Given On Hold: 07/10/25 15:06 DAILY IVONE Glucagon 1 mg 07/10/25 15:08 Glucagon For Inj 1 Mg Vial IM PRN PRN Hypoglycemia Protocol Glucose 15 gm 07/10/25 15:08 Glucose Oral Gel 15 Gm Of Glucse In 37.5 Gm Tube PO PRN PRN Hypoglycemia Protocol Guaifenesin 1,200 mg 07/07/25 21:00 07/10/25 11:01 Guaifenesin 12 Hr 600 Mg Tabcr PO Not Given On Hold: 07/10/25 15:02 Q12HR IVONE Dextrose 1,000 mls @ 100 mls/hr 07/10/25 15:08 Dextrose 5% 1,000 Ml IVPB PRN PRN Hypoglycemia Protocol Vancomycin HCl 1,500 mg in 500 mls @ 250 mls/hr 07/11/25 14:00 07/11/25 16:10 Vancomycin 1,500 Mg/Ns 500 Ml IVPB Infused Q18H IVONE Infusion Doxycycline Hyclate 100 mg/ 100 mls @ 100 mls/hr 07/10/25 21:00 07/11/25 22:09 Sodium Chloride IVPB 100 mls/hr Q12H IVONE Administration Cefepime HCl 2 gm/ Sodium 50 mls @ 100 mls/hr 07/11/25 10:20 07/11/25 20:11 Chloride IVPB 100 mls/hr Q12HR IVONE Administration Insulin Aspart 3 - 6 units 07/10/25 17:00 07/12/25 06:22 Insulin Aspart (*Bkc) 100 Units/Ml SUB-Q 4 units Q4HR IVONE Administration Protocol Insulin Glargine 8 units 07/08/25 09:00 07/10/25 11:10 Insulin Glargine (*Bkc) 100 Units/Ml SUB-Q Not Given On Hold: 07/10/25 15:05 DAILY IVONE Ipratropium [place] 0.5 mg 07/10/25 15:30 07/12/25 07:26 Ipratropium Br 0.02% Inh Soln 0.5 Mg/2.5 Ml Vial INHALATION 0.5 mg Q6HRT IVONE Administration Levalbuterol HCl 0.63 mg 07/10/25 15:26 07/12/25 07:26 Levalbuterol Neb 1.25 Mg/3 Ml INHALATION 0.63 mg Q6HRT IVONE Administration Loperamide HCl 2 mg 07/07/25 14:57 Loperamide Hcl 2 Mg Capsule PO On Hold: 07/10/25 15:03 PRN PRN Diarrhea Losartan Potassium 25 mg 07/08/25 09:00 07/10/25 11:01 Losartan Potassium 25 Mg Tablet PO Not Given On Hold: 07/10/25 15:04 DAILY IVONE Methocarbamol 500 mg 07/07/25 14:53 07/09/25 08:32 Methocarbamol 500 Mg Tablet PO 500 mg On Hold: 07/10/25 15:03 Q8H PRN Administration muscle spasms Methylprednisolone Sodium Succinate 40 mg 07/11/25 00:00 07/12/25 06:31 Methylprednisolone Sod Succ 40 Mg Vial IV PUSH 40 mg Q6HR IVONE Administration Pantoprazole Sodium 40 mg 07/08/25 09:00 07/10/25 11:02 Pantoprazole 40 Mg Tablet PO Not Given On Hold: 07/10/25 15:05 QAM IVONE Pantoprazole Sodium 40 mg 07/10/25 15:45 07/11/25 08:42 Pantoprazole Sodium Iv 40 Mg Vial IV PUSH 40 mg QAM IVONE Administration Pramipexole Dihydrochloride 0.5 mg 07/07/25 21:00 07/09/25 20:52 Pramipexole 0.5 Mg Tablet PO 0.5 mg On Hold: 07/10/25 15:03 HS IVONE Administration Pravastatin Sodium 10 mg 07/08/25 09:00 07/10/25 11:02 Pravastatin Sodium 10 Mg Tablet BY MOUTH Not Given On Hold: 07/10/25 15:05 DAILY [facility] Sodium Chloride 10 ml 07/10/25 22:00 07/12/25 04:44 Central Line Flush IV PUSH Not Given Q8HR [facility] Sodium Chloride 20 ml 07/10/25 20:33 Central Line Flush IV PUSH PRN PRN after blood draws Sotalol HCl 80 mg 07/11/25 10:25 07/11/25 20:11 Sotalol Hcl 80 Mg Tablet PO 80 mg Q12HR IVONE Administration Trimethobenzamide HCl 200 mg 07/07/25 14:56 07/12/25 04:26 Trimethobenzamide Hcl 200 Mg/2 Ml Vial IM 200 mg Q6H PRN Administration Nausea And Vomiting Vitamin D 25 mcg 07/08/25 09:00 07/10/25 11:01 Cholecalciferol (Vitamin D3) 25 Mcg (1,000 Units) Tablet PO Not Given On Hold: 07/10/25 15:02 DAILY [facility] Radiology Results: ITS Impressions Cervical Spine CT 07/07/25 06:30 IMPRESSION: HEAD: 1. No acute intracranial findings. 2. Bilateral mastoiditis. C-SPINE: 1. No acute fracture. 2. Ill-defined fluid and postoperative changes posterior to upper cervical spine. 3. Extensive bilateral upper lung airspace disease, and left pleural effusion. Chest/Abdomen/Pelvis CT 07/07/25 07:13 IMPRESSION: 1. Diffuse lung disease, likely a combination of pneumonia in the upper lobes and left lower lobe and mild pulmonary edema. 2. Small pleural effusions. 3. Colitis involving the rectosigmoid. Head CT 07/10/25 15:36 Impression: 1.No acute intracranial abnormality. Chest X-Ray 07/12/25 06:56 IMPRESSION: 1. Worsening pulmonary edema and/or multifocal airspace disease. 2. Enlarging left pleural effusion. Labs Labs: Laboratory Results - last 24 hr 07/10/25 07/11/25 07/11/25 10:19 08:29 11:32 WBC RBC Hgb Hct MCV MCH MCHC RDW Plt Count MPV Immature Gran % (Auto) Neut % (Auto) Lymph % (Auto) [place] % (Auto) Eos % (Auto) Baso % (Auto) Lymph # (Auto) [place] # (Auto) Eos # (Auto) Baso # (Auto) Abs Immat Gran (auto) Absolute Neuts (auto) Absolute Nucleated RBC Nucleated RBC % Puncture Site ABG pH ABG pCO2 ABG pO2 ABG PO2/FiO2 Ratio ABG HCO3 ABG O2 Saturation ABG O2 Content ABG Base Excess A-a Gradient Oxyhemoglobin Carboxyhemoglobin Methemoglobin Reduced Hemoglobin Total Hemoglobin O2 Delivery Device O2 Liters/Min FiO2 POC Capillary Glucose 226 H 308 H M.pneumoniae IgM Titer <770 07/11/25 07/11/25 07/12/25 16:31 20:09 00:39 WBC RBC Hgb Hct MCV MCH MCHC RDW Plt Count MPV Immature Gran % (Auto) Neut % (Auto) Lymph % (Auto) [place] % (Auto) Eos % (Auto) Baso % (Auto) Lymph # (Auto) [place] # (Auto) Eos # (Auto) Baso # (Auto) Abs Immat Gran (auto) Absolute Neuts (auto) Absolute Nucleated RBC Nucleated RBC % Puncture Site ABG pH ABG pCO2 ABG pO2 ABG PO2/FiO2 Ratio ABG HCO3 ABG O2 Saturation ABG O2 Content ABG Base Excess A-a Gradient Oxyhemoglobin Carboxyhemoglobin Methemoglobin Reduced Hemoglobin Total Hemoglobin O2 Delivery Device O2 Liters/Min FiO2 POC Capillary Glucose 259 H 370 H 246 H M.pneumoniae IgM Titer 07/12/25 07/12/25 07/12/25 04:22 05:19 07:13 WBC 12.9 H RBC 3.58 L Hgb 10.1 L Hct 33.4 L MCV 93.3 MCH 28.2 MCHC 30.2 L RDW 20.0 H Plt Count 410 H MPV 10.9 H Immature Gran % (Auto) 0.9 H Neut % (Auto) 88.1 H Lymph % (Auto) 4.8 L [place] % (Auto) 6.1 Eos % (Auto) 0.0 Baso % (Auto) 0.1 L Lymph # (Auto) 0.62 L [place] # (Auto) 0.8 H Eos # (Auto) 0.0 Baso # (Auto) 0.0 Abs Immat Gran (auto) 0.11 H Absolute Neuts (auto) 11.3 H Absolute Nucleated RBC 0.000 Nucleated RBC % 0.0 Puncture Site Right brachial ABG pH 7.332 L ABG pCO2 62.8 H* ABG pO2 71.1 L ABG PO2/FiO2 Ratio 1.18 ABG HCO3 32.5 H ABG O2 Saturation 92.8 L ABG O2 Content 13.2 L ABG Base Excess 5.3 A-a Gradient 287.6 Oxyhemoglobin 90.1 Carboxyhemoglobin 1.4 Methemoglobin 0.3 Reduced Hemoglobin 8.2 H Total Hemoglobin 10.4 L O2 Delivery Device High flow therapy O2 Liters/Min 45.0 FiO2 60 POC Capillary Glucose 251 H M.pneumoniae IgM Titer
[2025-07-12] MEDS: PANTOPRAZOLE SODIUM IV 40 MG VIAL IV PUSH (07:46)
[2025-07-12] MEDS: ENOXAPARIN 40 MG/0.4 ML SYRINGE SUB-Q (07:47)
--- NOTE | 2025-07-12 08:17 | WPDINTPN ---
Progress Note: A&P Assessment and Plan (1) Encephalopathy: Code(s): G93.40 - Encephalopathy, unspecified Status: Acute Assessment and Plan: Likely related to hypercapnic respiratory failure, sepsis/infection -07/10: will repeat head CT -continue AVAPS, repeat ABG in a couple of hours -ammonia levels were normal <9. -07/11: her hypercapnia has resolved, patient is more awake, alert, able to answer questions appropriately and follows simple command -continues to be weak, alert, answers questions and follows commands (2) Acute and chronic respiratory failure: Code(s): J96.20 - Acute and chronic respiratory failure, unspecified whether with hypoxia or hypercapnia Status: Acute Assessment and Plan: Acute hypercapnic respiratory failure likely related to multifactorial issues, patient has a history of COPD, pulmonary hypertension, sarcoidosis, interstitial lung disease, now here with urinary tract infection, fall -pCO2 level this morning was 78, patient was placed on BiPAP with repeat pCO2 of level of 77 -pulmonology was consulted, placed patient on AVAPS, I shortened the inspiratory time on the AVAPS to increase the expiratory time -started patient on Solu-Medrol a she is not moving much air bilaterally, left > right, occasional wheezing -patient currently on ceftriaxone and doxycycline (07/07) -given patient has pneumonia plus MRSA screen being positive plus recent admission to [facility], she was started on vancomycin (07/10) 07/11: Patient did well on AVAPS, repeat ABG showed resolution of hypercapnia, will place her on Vapotherm 07/12: Patient had some episodes of hypoxia overnight, with increased oxygen requirements. Remains on high-flow therapy, 45 L flow rate and 45% FiO2. Chest x-ray shows worsening pulmonary edema and/or multifocal airspace disease. Will give a dose of diuretic -will place patient back on AVAPS as have pCO2 has been increasing (3) Sepsis: Code(s): A41.9 - Sepsis, unspecified organism Status: Acute Assessment and Plan: Patient presented with a fall, altered mental status, urinary tract infection -07/07: Urine cultures growing Enterobacter cloaca and Proteus penneri, both of them a susceptible to cefepime -07/07: Blood cultures pending -switched ceftriaxone to cefepime (07/11) and continue vancomycin and doxycycline UTI and pneumonia -07/11: Overnight patient did drop her blood pressures, albumin 5% 250 mL IV x1 was given despite which her blood pressures remain low, central line was inserted and patient was started on Levophed -she was on Levophed briefly which has been discontinued early this morning (4) Acute exacerbation of chronic obstructive pulmonary disease: Code(s): J44.1 - Chronic obstructive pulmonary disease with (acute) exacerbation Status: Acute Assessment and Plan: Continue AVAPS, Solu-Medrol, antibiotics (5) UTI (urinary tract infection): Code(s): N39.0 - Urinary tract infection, site not specified Status: Acute Assessment and Plan: Continue antibiotics as above, urine culture as above (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 intake -will hold Lantus, -will place patient on moderate dose of sliding scale insulin Accu-Cheks q.4 hours -blood sugars have been elevated which could be related to steroids, infection, will add Lantus (7) Sarcoid: Code(s): D86.9 - Sarcoidosis, unspecified Status: Acute Assessment and Plan: Recently diagnosed sarcoidosis and [facility] -patient's calcium level a within normal limits -continue Solu-Medrol (8) Pulmonary hypertension: Code(s): I27.20 - Pulmonary hypertension, unspecified Status: Acute Assessment and Plan: History of pulmonary hypertension, likely related to sleep apnea, sarcoidosis, interstitial lung disease, coronary artery disease, COPD/: Pulmonology 11/21/2022: Echocardiogram RVSP was 59 Cardiology following the patient for atrial fibrillation and atrial tachycardia 07/11/2025: Echocardiogram Summary 1. Definity contrast administered improved wall motion interpretation. 2. Left ventricular chamber dimension is normal. 3. Left ventricular systolic function is normal, estimated at 65-70. 4. There is moderate concentric increased left ventricular wall thickness. 5. The left ventricular diastolic function is abnormal. 6. E/e' 26 is significantly elevated. 7. Right ventricular systolic function is reduced based on an abnormal TAPSE 1.4 cm. 8. Left atrial chamber dimension is mildly enlarged. 9. There is moderate aortic valve sclerosis. 10. The mitral valve has a moderately calcified annulus. 11. There is trace mitral valve regurgitation. 12. There is moderate tricuspid valve regurgitation. 13. Severe pulmonary hypertension, estimated pulmonary arterial systolic pressure is 60 mmHg. 14. There is trace pulmonic regurgitation. (9) Fall: Code(s): W19.XXXA - Unspecified fall, initial encounter Status: Acute Assessment and Plan: Patient presented with a fall on 07/07 -status post fusion of C2-C6 at [facility] on 06/26/2025 for cervical myelopathy -07/07: CT cervical spine showed fluid collection at the surgical site. Neurosurgery at [facility] evaluated the patient, no drainage from her incision and hardware was well-positioned, the neurosurgery team had no additional recommendations. -PT OT has been ordered (10) Pressure ulcer: Code(s): L89.90 - Pressure ulcer of unspecified site, unspecified stage Status: Acute Assessment and Plan: Stage III pressure ulcer on coccyx and sacrum -wound care following (11) Paroxysmal atrial fibrillation: Code(s): I48.0 - Paroxysmal atrial fibrillation Status: Chronic Assessment and Plan: Patient with paroxysmal AFib with intermittent rapid ventricular response, she does nonsustained tachycardia -patient was started on amiodarone overnight -07/11: Restarted on sotalol after discussion with Cardiology, amiodarone was turned off (12) Ileus: Code(s): K56.7 - Ileus, unspecified Status: Acute Assessment and Plan: Patient complained of abdominal pain, abdominal obstructive series showed dilated Will have GI evaluate the patient -insert NG tube to low intermittent some -NPO for now Plan DVT prophylaxis: Patient had recent fall on rivaroxaban, currently holding chemoprophylaxis since patient had a fall with altered mental status. Continue SCDs Stress ulcer prophylaxis: Protonix Nutrition: NPO Code Status: Full code Critical Care Time Spent: 32 minutes Discussed with updated with patient's condition and plan of care. Answered all questions Due to a high probability of clinically significant, life threatening deterioration, the patient required my highest level of preparedness to intervene emergently and I personally spent this critical care time directly and personally managing the patient. This critical care time included obtaining a history; examining the patient; pulse oximetry; ordering and review of studies; arranging urgent treatment with development of a management plan; evaluation of patient's response to treatment; frequent reassessment; and discussions with other providers. It was exclusive of separately billable procedures and treating other patients and teaching time. Please see Assessment and Plan section and the rest of the note for further information on patient assessment and treatment This dictation may have been done utilizing a voice recognition system. Attempts have been made to correct errors. However, there may be uncorrected grammatical, spelling, and recognitions errors present. Subjective Date/time seen: 07/12/25 08:17 Interval history: Reason for consult: Encephalopathy, hypercapnic respiratory failure, intermittent atrial fibrillation with rapid ventricular response, sepsis 07/12/2025: Patient seen and examined the ICU, is awake, alert, able to answer questions appropriately, follows simple commands in all extremities. She remains on high-flow therapy with 45 date of flow rate and 45% FiO2. Patient was hypoxic overnight with O2 sats in the 80s, FiO2 had been increased with improvement in her sats. Currently denies any nausea, vomiting, diarrhea, chest pain, cough. She does complain of abdominal pain. Hemodynamically stable, adequate O2 sats, adequate urine output Review of Systems Review of Systems: All systems reviewed & are unremarkable except as noted in HPI and below Exam Narrative: General: Ill-appearing female, appears older than her stated age HEENT:? pupils equal and reactive, sclera is clear Neck:? Hard cervical collar in place Respiratory: Better air entry bilaterally, no wheezing Cardiac:? Irregularly irregular, rate controlled Abdomen:? Soft, periumbilical tenderness, slightly distended, hypoactive bowel sounds Extremities:? Upper extremities edematous, palpable pedal pulses on lower extremities Neuro:? Patient is on high-flow therapy, is awake, alert, able to answer questions and follows simple commands in all extremities Skin:? Bruising noted on upper extremities Psych:? Normal mentation, depressed affect Objective Data Vital Signs Vital Signs: Vital Signs - 24 hr 07/11/25 08:19 07/11/25 08:30 07/11/25 09:00 Temperature Pulse Rate 110 H 114 H Respiratory Rate 22 H 21 H Blood Pressure 124/69 Pulse Oximetry 93 96 Oxygen Delivery High Flow Therapy with Na Oxygen Flow Rate 35 Fraction of Inspired Oxygen 35 07/11/25 09:51 07/11/25 10:00 07/11/25 10:00 Temperature Pulse Rate 120 H 104 H 120 H Respiratory Rate 34 H Blood Pressure 145/132 H Pulse Oximetry 89 L Oxygen Delivery Oxygen Flow Rate Fraction of Inspired Oxygen 07/11/25 10:00 07/11/25 10:33 07/11/25 10:48 Temperature Pulse Rate 120 H 107 H Respiratory Rate Blood Pressure 145/132 H 126/73 Pulse Oximetry Oxygen Delivery Oxygen Flow Rate Fraction of Inspired Oxygen 07/11/25 11:00 07/11/25 11:20 07/11/25 11:37 Temperature Pulse Rate 127 H 93 Respiratory Rate 28 H Blood Pressure 139/76 100/84 Pulse Oximetry 92 93 Oxygen Delivery High Flow Therapy with Na Oxygen Flow Rate 35 Fraction of Inspired Oxygen 07/11/25 12:00 07/11/25 12:00 07/11/25 12:07 Temperature Pulse Rate 105 H 100 94 Respiratory Rate 29 H Blood Pressure 105/73 105/73 Pulse Oximetry 88 L Oxygen Delivery Oxygen Flow Rate Fraction of Inspired Oxygen 07/11/25 13:00 07/11/25 14:00 07/11/25 14:00 Temperature 99.7 F H Pulse Rate 98 120 H 96 Respiratory Rate 27 H 27 H Blood Pressure 125/59 L 127/76 Pulse Oximetry 90 90 Oxygen Delivery Oxygen Flow Rate Fraction of Inspired Oxygen 07/11/25 14:00 07/11/25 14:29 07/11/25 14:34 Temperature Pulse Rate 116 H 95 99 Respiratory Rate 21 H 26 H Blood Pressure 120/79 Pulse Oximetry Oxygen Delivery Oxygen Flow Rate Fraction of Inspired Oxygen 07/11/25 15:00 07/11/25 15:49 07/11/25 15:51 Temperature 99.3 F Pulse Rate 99 87 Respiratory Rate 31 H 33 H Blood Pressure 123/90 147/50 H Pulse Oximetry 91 91 90 Oxygen Delivery High Flow Therapy with Na Oxygen Flow Rate 35 Fraction of Inspired Oxygen 07/11/25 16:00 07/11/25 16:49 07/11/25 17:56 Temperature 99.0 F Pulse Rate 106 H 104 H 122 H Respiratory Rate 37 H Blood Pressure 132/69 Pulse Oximetry 93 Oxygen Delivery Oxygen Flow Rate Fraction of Inspired Oxygen 07/11/25 17:57 07/11/25 19:00 07/11/25 19:09 Temperature 99.1 F 99.5 F Pulse Rate 120 H 126 H 106 H Respiratory Rate 35 H 26 H 24 H Blood Pressure 138/64 121/76 Pulse Oximetry 92 94 Oxygen Delivery Oxygen Flow Rate Fraction of Inspired Oxygen 07/11/25 19:11 07/11/25 19:18 07/11/25 20:00 Temperature Pulse Rate 122 H 113 H 115 H Respiratory Rate 24 H 20 Blood Pressure 153/83 H Pulse Oximetry 93 Oxygen Delivery High Flow Therapy with Na Oxygen Flow Rate 35 Fraction of Inspired Oxygen 35 07/11/25 20:00 07/11/25 20:00 07/11/25 20:00 Temperature 99.3 F Pulse Rate 107 H 107 H 90 Respiratory Rate 20 29 H Blood Pressure 153/83 H Pulse Oximetry 92 92 Oxygen Delivery High Flow Therapy with Na Oxygen Flow Rate 40 Fraction of Inspired Oxygen 40 07/11/25 20:11 07/11/25 21:00 07/11/25 21:47 Temperature 99.2 F Pulse Rate 115 H 111 H 95 Respiratory Rate 34 H 22 H Blood Pressure 148/52 H Pulse Oximetry 88 L 91 Oxygen Delivery High Flow Therapy with Na Oxygen Flow Rate 40 Fraction of Inspired Oxygen 40 07/11/25 22:00 07/11/25 22:00 07/11/25 23:00 Temperature 99.3 F 99 F Pulse Rate 107 H 108 H 100 Respiratory Rate 31 H 36 H Blood Pressure 132/97 H 143/92 H Pulse Oximetry 92 88 L Oxygen Delivery Oxygen Flow Rate Fraction of Inspired Oxygen 07/12/25 00:00 07/12/25 00:00 07/12/25 00:00 Temperature 98.2 F Pulse Rate 104 H 108 H 108 H Respiratory Rate 25 H Blood Pressure 146/102 H Pulse Oximetry 92 85 L Oxygen Delivery High Flow Therapy with Na Oxygen Flow Rate 40 Fraction of Inspired Oxygen 45 07/12/25 00:57 07/12/25 01:24 07/12/25 01:28 Temperature 98.8 F Pulse Rate 105 H 121 H 102 H Respiratory Rate 22 H 22 H 22 H Blood Pressure 148/90 H Pulse Oximetry 93 91 Oxygen Delivery High Flow Therapy with Na Oxygen Flow Rate 40 Fraction of Inspired Oxygen 45 07/12/25 01:37 07/12/25 02:00 07/12/25 02:00 Temperature 99.4 F Pulse Rate 100 90 95 Respiratory Rate 20 22 H Blood Pressure 138/85 Pulse Oximetry 92 Oxygen Delivery Oxygen Flow Rate Fraction of Inspired Oxygen 07/12/25 02:52 07/12/25 03:00 07/12/25 04:00 Temperature 99 F Pulse Rate 99 109 H 146 H Respiratory Rate 22 H Blood Pressure 165/109 H Pulse Oximetry 86 L 90 Oxygen Delivery High Flow Therapy with Na Oxygen Flow Rate 40 Fraction of Inspired Oxygen 50 07/12/25 04:00 07/12/25 04:34 07/12/25 04:40 Temperature 97.7 F Pulse Rate 146 H 109 H 94 Respiratory Rate 20 24 H Blood Pressure 187/137 H Pulse Oximetry 82 L 91 90 Oxygen Delivery High Flow Therapy with Na High Flow Therapy with Na Oxygen Flow Rate 45 45 Fraction of Inspired Oxygen 60 60 07/12/25 05:00 07/12/25 06:00 07/12/25 06:00 Temperature 98 F Pulse Rate 99 94 102 H Respiratory Rate 24 H 18 Blood Pressure 134/86 94/63 L Pulse Oximetry 91 97 Oxygen Delivery Oxygen Flow Rate Fraction of Inspired Oxygen 07/12/25 06:28 07/12/25 07:00 07/12/25 07:27 Temperature Pulse Rate 94 81 Respiratory Rate 30 H Blood Pressure 108/89 Pulse Oximetry 91 93 92 Oxygen Delivery High Flow Therapy with Na High Flow Therapy with Na Oxygen Flow Rate 45 45 Fraction of Inspired Oxygen 45 45 07/12/25 07:27 07/12/25 07:42 Temperature Pulse Rate 90 90 Respiratory Rate 24 H 22 H Blood Pressure Pulse Oximetry Oxygen Delivery Oxygen Flow Rate Fraction of Inspired Oxygen Intake/Output Intake/Output: Intake & Output 07/09/25 07/10/25 07/11/25 07/12/25 23:59 23:59 23:59 23:59 Intake Total 1052 1217.4 1709.2 Output Total 2250 410 425 450 Balance -1198 807.4 1284.2 -450 Meds/Results Medications: Active Medications Generic Name Dose Route Start Last Admin Trade Name Freq PRN Reason Stop Dose Admin Acetaminophen 650 mg 07/07/25 08:10 07/11/25 20:25 Acetaminophen 325 Mg Tablet PO 650 mg Q4H PRN Administration Mild Pain (1-3) or Fever Acetaminophen 650 mg 07/10/25 17:36 07/10/25 21:18 Acetaminophen 650 Mg Suppository RECTAL 650 mg Q6H PRN Administration Fever Dextrose 12.5 gm 07/10/25 15:08 Dextrose 50% 25 Gm/50 Ml Syringe IV PUSH PRN PRN Hypoglycemia Protocol Enoxaparin Sodium 40 mg 07/08/25 09:00 07/12/25 07:47 Enoxaparin 40 Mg/0.4 Ml Syringe SUB-Q 40 mg DAILY IVONE Administration Furosemide 40 mg 07/08/25 09:00 07/10/25 11:01 Furosemide Inj 40 Mg/4 Ml Vial IV PUSH Not Given On Hold: 07/10/25 15:06 DAILY IVONE Glucagon 1 mg 07/10/25 15:08 Glucagon For Inj 1 Mg Vial IM PRN PRN Hypoglycemia Protocol Glucose 15 gm 07/10/25 15:08 Glucose Oral Gel 15 Gm Of Glucse In 37.5 Gm Tube PO PRN PRN Hypoglycemia Protocol Guaifenesin 1,200 mg 07/07/25 21:00 07/10/25 11:01 Guaifenesin 12 Hr 600 Mg Tabcr PO Not Given On Hold: 07/10/25 15:02 Q12HR IVONE Dextrose 1,000 mls @ 100 mls/hr 07/10/25 15:08 Dextrose 5% 1,000 Ml IVPB PRN PRN Hypoglycemia Protocol Vancomycin HCl 1,500 mg in 500 mls @ 250 mls/hr 07/11/25 14:00 07/11/25 16:10 Vancomycin 1,500 Mg/Ns 500 Ml IVPB Infused Q18H IVONE Infusion Doxycycline Hyclate 100 mg/ 100 mls @ 100 mls/hr 07/10/25 21:00 07/11/25 22:09 Sodium Chloride IVPB 100 mls/hr Q12H IVONE Administration Cefepime HCl 2 gm/ Sodium 50 mls @ 100 mls/hr 07/11/25 10:20 07/11/25 20:11 Chloride IVPB 100 mls/hr Q12HR IVONE Administration Insulin Aspart 3 - 6 units 07/10/25 17:00 07/12/25 07:42 Insulin Aspart (*Bkc) 100 Units/Ml SUB-Q 3 units Q4HR IVONE Administration Protocol Insulin Glargine 8 units 07/08/25 09:00 07/10/25 11:10 Insulin Glargine (*Bkc) 100 Units/Ml SUB-Q Not Given On Hold: 07/10/25 15:05 DAILY [facility] Ipratropium [place] 0.5 mg 07/10/25 15:30 07/12/25 07:26 Ipratropium Br 0.02% Inh Soln 0.5 Mg/2.5 Ml Vial INHALATION 0.5 mg Q6HRT IVONE Administration Levalbuterol HCl 0.63 mg 07/10/25 15:26 07/12/25 07:26 Levalbuterol Neb 1.25 Mg/3 Ml INHALATION 0.63 mg Q6HRT IVONE Administration Loperamide HCl 2 mg 07/07/25 14:57 Loperamide Hcl 2 Mg Capsule PO On Hold: 07/10/25 15:03 PRN PRN Diarrhea Losartan Potassium 25 mg 07/08/25 09:00 07/10/25 11:01 Losartan Potassium 25 Mg Tablet PO Not Given On Hold: 07/10/25 15:04 DAILY IVONE Methocarbamol 500 mg 07/07/25 14:53 07/09/25 08:32 Methocarbamol 500 Mg Tablet PO 500 mg On Hold: 07/10/25 15:03 Q8H PRN Administration muscle spasms Methylprednisolone Sodium Succinate 40 mg 07/11/25 00:00 07/12/25 06:31 Methylprednisolone Sod Succ 40 Mg Vial IV PUSH 40 mg Q6HR IVONE Administration Pantoprazole Sodium 40 mg 07/08/25 09:00 07/10/25 11:02 Pantoprazole 40 Mg Tablet PO Not Given On Hold: 07/10/25 15:05 QAM [facility] Pantoprazole Sodium 40 mg 07/10/25 15:45 07/12/25 07:46 Pantoprazole Sodium Iv 40 Mg Vial IV PUSH 40 mg QAM [facility] Administration Pramipexole Dihydrochloride 0.5 mg 07/07/25 21:00 07/09/25 20:52 Pramipexole 0.5 Mg Tablet PO 0.5 mg On Hold: 07/10/25 15:03 HS IVONE Administration Pravastatin Sodium 10 mg 07/08/25 09:00 07/10/25 11:02 Pravastatin Sodium 10 Mg Tablet BY MOUTH Not Given On Hold: 07/10/25 15:05 DAILY IVONE Sodium Chloride 10 ml 07/10/25 22:00 07/12/25 04:44 Central Line Flush IV PUSH Not Given Q8HR IVONE Sodium Chloride 20 ml 07/10/25 20:33 Central Line Flush IV PUSH PRN PRN after blood draws Sotalol HCl 80 mg 07/11/25 10:25 07/11/25 20:11 Sotalol Hcl 80 Mg Tablet PO 80 mg Q12HR IVONE Administration Trimethobenzamide HCl 200 mg 07/07/25 14:56 07/12/25 04:26 Trimethobenzamide Hcl 200 Mg/2 Ml Vial IM 200 mg Q6H PRN Administration Nausea And Vomiting Vitamin D 25 mcg 07/08/25 09:00 07/10/25 11:01 Cholecalciferol (Vitamin D3) 25 Mcg (1,000 Units) Tablet PO Not Given On Hold: 07/10/25 15:02 DAILY [facility] Radiology Results: ITS Impressions Cervical Spine CT 07/07/25 06:30 IMPRESSION: HEAD: 1. No acute intracranial findings. 2. Bilateral mastoiditis. C-SPINE: 1. No acute fracture. 2. Ill-defined fluid and postoperative changes posterior to upper cervical spine. 3. Extensive bilateral upper lung airspace disease, and left pleural effusion. Chest/Abdomen/Pelvis CT 07/07/25 07:13 IMPRESSION: 1. Diffuse lung disease, likely a combination of pneumonia in the upper lobes and left lower lobe and mild pulmonary edema. 2. Small pleural effusions. 3. Colitis involving the rectosigmoid. Head CT 07/10/25 15:36 Impression: 1.No acute intracranial abnormality. Chest X-Ray 07/12/25 06:56 IMPRESSION: 1. Worsening pulmonary edema and/or multifocal airspace disease. 2. Enlarging left pleural effusion. Abdomen X-Ray 07/12/25 08:12 IMPRESSION: 1. Nonspecific bowel gas pattern with multiple loops of gaseous dilated bowel. 2. Possible atelectatic or or infiltrative changes in the lung bases. Labs Labs: Laboratory Results - last 24 hr 07/10/25 07/11/25 07/11/25 10:19 08:29 11:32 WBC RBC Hgb Hct MCV MCH MCHC RDW Plt Count MPV Immature Gran % (Auto) Neut % (Auto) Lymph % (Auto) Avery % (Auto) Eos % (Auto) Baso % (Auto) Lymph # (Auto) Avery # (Auto) Eos # (Auto) Baso # (Auto) Abs Immat Gran (auto) Absolute Neuts (auto) Absolute Nucleated RBC Nucleated RBC % Puncture Site ABG pH ABG pCO2 ABG pO2 ABG PO2/FiO2 Ratio ABG HCO3 ABG O2 Saturation ABG O2 Content ABG Base Excess A-a Gradient Oxyhemoglobin Carboxyhemoglobin Methemoglobin Reduced Hemoglobin Total Hemoglobin O2 Delivery Device O2 Liters/Min FiO2 POC Capillary Glucose 226 H 308 H M.pneumoniae IgM Titer <770 07/11/25 07/11/25 07/12/25 16:31 20:09 00:39 WBC RBC Hgb Hct MCV MCH MCHC RDW Plt Count MPV Immature Gran % (Auto) Neut % (Auto) Lymph % (Auto) Avery % (Auto) Eos % (Auto) Baso % (Auto) Lymph # (Auto) Avery # (Auto) Eos # (Auto) Baso # (Auto) Abs Immat Gran (auto) Absolute Neuts (auto) Absolute Nucleated RBC Nucleated RBC % Puncture Site ABG pH ABG pCO2 ABG pO2 ABG PO2/FiO2 Ratio ABG HCO3 ABG O2 Saturation ABG O2 Content ABG Base Excess A-a Gradient Oxyhemoglobin Carboxyhemoglobin Methemoglobin Reduced Hemoglobin Total Hemoglobin O2 Delivery Device O2 Liters/Min FiO2 POC Capillary Glucose 259 H 370 H 246 H M.pneumoniae IgM Titer 07/12/25 07/12/25 07/12/25 04:22 05:19 07:13 WBC 12.9 H RBC 3.58 L Hgb 10.1 L Hct 33.4 L MCV 93.3 MCH 28.2 MCHC 30.2 L RDW 20.0 H Plt Count 410 H MPV 10.9 H Immature Gran % (Auto) 0.9 H Neut % (Auto) 88.1 H Lymph % (Auto) 4.8 L Avery % (Auto) 6.1 Eos % (Auto) 0.0 Baso % (Auto) 0.1 L Lymph # (Auto) 0.62 L Avery # (Auto) 0.8 H Eos # (Auto) 0.0 Baso # (Auto) 0.0 Abs Immat Gran (auto) 0.11 H Absolute Neuts (auto) 11.3 H Absolute Nucleated RBC 0.000 Nucleated RBC % 0.0 Puncture Site Right brachial ABG pH 7.332 L ABG pCO2 62.8 H* ABG pO2 71.1 L ABG PO2/FiO2 Ratio 1.18 ABG HCO3 32.5 H ABG O2 Saturation 92.8 L ABG O2 Content 13.2 L ABG Base Excess 5.3 A-a Gradient 287.6 Oxyhemoglobin 90.1 Carboxyhemoglobin 1.4 Methemoglobin 0.3 Reduced Hemoglobin 8.2 H Total Hemoglobin 10.4 L O2 Delivery Device High flow therapy O2 Liters/Min 45.0 FiO2 60 POC Capillary Glucose 251 H M.pneumoniae IgM Titer 07/12/25 07:40 WBC RBC Hgb Hct MCV MCH MCHC RDW Plt Count MPV Immature Gran % (Auto) Neut % (Auto) Lymph % (Auto) Avery % (Auto) Eos % (Auto) Baso % (Auto) Lymph # (Auto) Avery # (Auto) Eos # (Auto) Baso # (Auto) Abs Immat Gran (auto) Absolute Neuts (auto) Absolute Nucleated RBC Nucleated RBC % Puncture Site ABG pH ABG pCO2 ABG pO2 ABG PO2/FiO2 Ratio ABG HCO3 ABG O2 Saturation ABG O2 Content ABG Base Excess A-a Gradient Oxyhemoglobin Carboxyhemoglobin Methemoglobin Reduced Hemoglobin Total Hemoglobin O2 Delivery Device O2 Liters/Min FiO2 POC Capillary Glucose 222 H M.pneumoniae IgM Titer Quality VTE Prophylaxis VTE prophylaxis: mechanical ordered
[2025-07-12] MEDS: FUROSEMIDE INJ 40 MG/4 ML VIAL IV PUSH (08:27)
[2025-07-12] MEDS: CEFEPIME 2 GM in SODIUM CHLORIDE 0.9% IV 50 ML 100 ML IVPB ×2 (08:31→20:29)
[2025-07-12] MEDS: DOXYCYCLINE IV 100 MG in SODIUM CHLORIDE 0.9% IV 100 ML IVPB ×2 (08:32→20:37)
[2025-07-12 08:52] LABS: Alanine Aminotransferase 23 U/L (6-35); Albumin Level 3.5 g/dL (3.5-5.1); Alkaline Phosphatase 200 U/L (38-126); Anion Gap 3 mmol/L (4-12); Aspartate Amino Transferase 31 U/L (14-36); Bilirubin,Total 0.6 mg/dL (0.2-1.3); Blood Urea Nitrogen 41 mg/dL (7-17); Calcium 8.8 mg/dL (8.4-10.2); Carbon Dioxide 33 mmol/L (22-30); Chloride 96 mmol/L (98-107); Estimated CRCL calculation 48 ml/min; Estimated Glomerular Filt Rate > 60; Glucose 211 mg/dL (65-110); Magnesium 2.1 mg/dL (1.6-2.3); Potassium 3.9 mmol/L (3.4-5.0); Sodium 132 mmol/L (137-145); Total Protein 6.4 g/dL (6.3-8.2)
[2025-07-12] MEDS: VANCOMYCIN 1,500 MG/NS 500 ML 1,500 MG/500 ML BAG 250 MG IVPB (10:28)
--- NOTE | 2025-07-12 10:47 | PCFNICU ---
ICU Rounding Note: Pt current nutrition is NPO. Last recorded weight is 76.8 kg, down from 84.9 kg on admit. Bowel Motility: Last reported BM 07/09-scant. Labs Reviewed: Hct 33.4, Hgb 10.1, Glu 211, BUN 41 Meds Noted: Lantus, NovoLog, Vit D, Protonix, Lasix. Skin: Stage III pressure ulcer-saccum. Additional Notes: Patient NPO. Distended bowel noted. NGT being placed for decompression today. Following daily in ICU rounds. Monitoring intakes, weights, labs, supplement tolerance, skin, plan of care every 3 days.
--- NOTE | 2025-07-12 11:29 | PCOTNOTE ---
The patient treatment was not able to be completed not appropriate at this time. Patient was returning from attempt for NG tube. Unsuccessful. Will plan to continue treatment per plan of care.
--- NOTE | 2025-07-12 12:43 | WPDGICN ---
Assessment and Plan Assessment and plan (1) Ileus: Code(s): K56.7 - Ileus, unspecified Status: Acute Assessment and Plan: 1. Ileus/Abnormal Gaseous Distension: GI asked to be seen for Ileus. Abdominal XR today shows a nonspecific bowel gas pattern with multiple gaseous dilated bowel loops with no obstruction. She is asymptomatic with no nausea/vomiting or abdominal pain. Abdomen is soft and non tender and non distended. She has not had a bowel movement in two days and is not passing flatus. This finding on Xray is non specific but likely ileus secondary to limited immobility, and current ICU status. On Bipap. She does not look well. - Supportive tx recommended - Treat other comorbidities. - Avoid narcotics. Avoid Anti-cholinergics. - Will plan on magnesium citrate times one. Then daily bowel regimen such as miralax daily or lactulose - Encourage mobility with PT. - If she develops abdominal distension or bloating, consider a rectal tube as she has refused an NG tube. - Serial KUB - If signs of obstructive symptoms develop, a CT abd/pelvis scan is recommended. Thank you very much for allowing me to share in the care of this very nice patient. This report may have been done utilizing a voice recognition system. Attempts have been made to correct errors. However, there may be uncorrected grammatical, spelling, and recognition errors present.No (2) Acute exacerbation of chronic obstructive pulmonary disease: Code(s): J44.1 - Chronic obstructive pulmonary disease with (acute) exacerbation Status: Acute (3) Pneumonia: Code(s): J18.9 - Pneumonia, unspecified organism Status: Acute (4) Mixed restrictive and obstructive lung disease: Code(s): J43.9 - Emphysema, unspecified; J98.4 - Other disorders of lung Status: Acute (5) ILD (interstitial lung disease): Code(s): J84.9 - Interstitial pulmonary disease, unspecified Status: Acute (6) Pleural effusion: Code(s): J90 - Pleural effusion, not elsewhere classified Status: Acute (7) Pulmonary edema: Code(s): J81.1 - Chronic pulmonary edema Status: Acute GI Consult Note Consult date/time: 07/12/25 12:43 Reason for consult: Ileus HPI: This is a pleasant 75-year-old female with a past medical surgical history of diabetes, atrial fibrillation, previous history of lymphocytic colitis, coronary artery disease, hypertension, hyperlipidemia, new diagnosis of sarcoidosis, and posterior cervical decompression and fusion C2-6 on 06/26/2025. She presented to the ER room 07/07/2025 with fall. She now is admitted to ICU for acute on chronic respiratory failure on Bipap, UTI and pneumonia. Recent CXR with worsening pulmonary edema. GI consulted for evaluation of ileus. She is sitting up in bed on Bipap. , Filippo Present. She currently complains of not having a bowel movement for at least two days and is not passing flatus. She denies any abdominal pain, nausea, or vomiting. She is currently NPO as of today, she is asking when she can resume eating. The ICU physician attempted to place an NG tube under fluoroscopy but was unsuccessful, and she has subsequently refused further NG tube placement. She denies any chronic constipation at home. She denies any narcotic use prior to hospital admission after her cervical fracture, and had only been taking Tylenol. Denies any history abdominal surgeries. Had work up in 2023 for MARGO with EGD, Colonoscopy and Capsule with no explanation for MARGO. ENDOSCOPY HISTORY: COLONOSCOPY: 01/14/2024 (Dr. Selby) indication for blood in stool and anemia. Normal appearing colon and terminal ileum with no colitis, AVMs, polyps or diverticula; medium size internal hemorrhoids in the rectum. Capsule Endoscopy: 11/12/2023 normal small bowel mucosa with no evidence of bleeding or suspicious lesions. EGD: 11/05/2023 (Dr. Sepulveda) for MARGO Normal EGD EGD: 07/2022 NERD and mild gastritis with no active bleeding. COLONOSCOPY: 2020 (Dr. Masters) indication for chronic diarrhea. Biopsies noted early collagenous colitis with moderately active lymphocytic colitis. IMAGING: XR abdomen obstructive series 07/07/2025 Nonspecific bowel gas pattern with multiple loops of gaseous dilated bowel. Possible atelectatic or infiltrative changes in the lung bases. CT chest abdomen pelvis w con 07/07/2025 Diffuse lung disease, likely a combination of pneumonia in the upper lobes and left lower lobe and mild pulmonary edema. Small pleural effusions. Colitis involving the rectosigmoid. 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 Chronic respiratory failure with hypoxia, on home oxygen therapy Transient ischemic attack Chronic hyponatremia Venous insufficiency Iron deficiency anemia Polymyalgia rheumatica Small vessel disease, cerebrovascular Chronic anticoagulation Paroxysmal atrial fibrillation Coronary artery disease Microscopic colitis Chronic diarrhea Exocrine pancreatic insufficiency COVID-19 Cervical arthritis Pneumonia Dyslipidemia Essential hypertension Gastro-esophageal reflux disease without esophagitis Multifocal atrial tachycardia Surgical History Surgical History History of heart artery stent History of cardiac catheterization History of bilateral knee replacement History of bilateral carpal tunnel release History of colonoscopy with polypectomy History of coronary artery bypass graft x 2 (12/2013) History of Achilles tendon repair History of spinal surgery Lumbar micro discectomy infusion. History of mitral valve repair History of shoulder surgery History of cataract extraction Left History of hand surgery trigger finger, thumb Family History Family History Mother Cerebrovascular accident Family history of diabetes mellitus in first degree relative Family history of coronary artery disease Acute myocardial infarction Diabetes mellitus Father Carcinoma of colon Family history of lung cancer Family history of malignant neoplasm of esophagus Sibling Liver disease Liver transplant recipient Other Family history of malignant neoplasm of brain Family history of malignant neoplasm of stomach Social History Social History Social History: Surrogate medical decision maker: Filippo Clifford, spouse. Code status: Full code. Smoking status: Never smoker Second hand tobacco smoke exposure: Yes Alcohol intake: unknown Drinks per week: 1 Alcohol use details: Rare alcohol use in moderation. Substance use: unknown Substance use type: does not use Do You Feel Safe in your Home?: Yes Lack of Transportation: No Lack of Food: Never True Current Housing: I Have Housing Concerned About Future Housing: No Difficulty Paying Gas/Electric Bills: No Difficulty Paying for Meds: No Currently Unemployed: No Education: Decline to Answer Difficulty w/ Childcare or Family Care: No Living arrangements: with family Additional living arrangements comments: Lives in [place]. Occupation/Education: retired Additional occupation/education comments: Worked in [employer]. Spiritual care concerns: No Meds Home Medications and Allergies Home Medications ?Medication ?Instructions ?Recorded ?Confirmed ?Type arformoterol 15 mcg/2 mL solution See Rx Instructions .Route 06/16/24 07/07/25 Rx for nebulization .COMPLEX #30 ea evolocumab 140 mg/mL subcutaneous 140 mg subcut .every 2 weeks #2 mL 11/10/24 07/07/25 Rx pen injector (Angelika Freeman) metoprolol tartrate 25 mg tablet See Rx Instructions .Route 01/05/25 07/07/25 Rx .COMPLEX #180 tabs rivaroxaban 20 mg tablet (Xarelto) See Rx Instructions .Route 01/10/25 07/07/25 Rx .COMPLEX #30 tabs furosemide 40 mg tablet See Rx Instructions .Route 02/13/25 07/07/25 Rx .COMPLEX #90 tabs pravastatin 10 mg tablet See Rx Instructions .Route 03/07/25 07/07/25 Rx .COMPLEX #90 tabs pramipexole 0.5 mg tablet 0.5 mg PO HS #90 tabs 03/19/25 07/07/25 Rx pantoprazole 40 mg tablet,delayed 40 mg PO QAM #90 tabs 04/02/25 07/07/25 Rx release sotalol 80 mg tablet 80 mg PO Q12H 04/27/25 07/07/25 History metformin 500 mg tablet,extended 1,000 mg (2 x 500 mg) PO QPM #90 05/22/25 07/07/25 Rx release 24 hr tabs cholecalciferol (vitamin D3) 25 25 mcg PO DAILY 07/07/25 07/07/25 History mcg (1,000 unit) capsule (Vitamin D3) insulin glargine 100 unit/mL 10 unit subcut DAILY 07/07/25 07/07/25 History subcutaneous solution (Lantus U-100 Insulin) insulin lispro 100 unit/mL 5 unit subcut TID 07/07/25 07/07/25 History subcutaneous solution (Humalog U-100 Insulin) losartan 25 mg tablet 25 mg PO DAILY 07/07/25 07/07/25 History magnesium oxide 250 mg PO DAILY 07/07/25 07/07/25 History methocarbamol 500 mg tablet 500 mg PO Q8H PRN muscle spasms 07/07/25 07/07/25 History potassium chloride 10 mEq oral 20 meq PO DAILY 07/07/25 07/07/25 History packet (Pokonza) Allergies Allergy/AdvReac Type Severity Reaction Status Date / Time ciprofloxacin Allergy Mild Unknown Verified 07/07/25 13:13 levofloxacin Allergy Unknown Unknown Verified 07/07/25 13:13 lisinopril Allergy Unknown Unknown Verified 07/07/25 13:13 amoxicillin (From Augmentin) AdvReac Severe Confusion Verified 07/07/25 13:13 clavulanic acid (From AdvReac Severe Confusion Verified 07/07/25 13:13 Augmentin) codeine AdvReac Mild Vomiting Verified 07/12/25 07:48 tramadol AdvReac Mild Vomiting Verified 07/07/25 13:13 Vital Signs Vital Signs - 24 hr 07/11/25 13:00 07/11/25 14:00 07/11/25 14:00 Temperature 99.7 F H Pulse Rate 98 120 H 96 Respiratory Rate 27 H 27 H Blood Pressure 125/59 L 127/76 Pulse Oximetry 90 90 Oxygen Delivery Oxygen Flow Rate Fraction of Inspired Oxygen 07/11/25 14:00 07/11/25 14:29 07/11/25 14:34 Temperature Pulse Rate 116 H 95 99 Respiratory Rate 21 H 26 H Blood Pressure 120/79 Pulse Oximetry Oxygen Delivery Oxygen Flow Rate Fraction of Inspired Oxygen 07/11/25 15:00 07/11/25 15:49 07/11/25 15:51 Temperature 99.3 F Pulse Rate 99 87 Respiratory Rate 31 H 33 H Blood Pressure 123/90 147/50 H Pulse Oximetry 91 91 90 Oxygen Delivery High Flow Therapy with Na Oxygen Flow Rate 35 Fraction of Inspired Oxygen 07/11/25 16:00 07/11/25 16:49 07/11/25 17:56 Temperature 99.0 F Pulse Rate 106 H 104 H 122 H Respiratory Rate 37 H Blood Pressure 132/69 Pulse Oximetry 93 Oxygen Delivery Oxygen Flow Rate Fraction of Inspired Oxygen 07/11/25 17:57 07/11/25 19:00 07/11/25 19:09 Temperature 99.1 F 99.5 F Pulse Rate 120 H 126 H 106 H Respiratory Rate 35 H 26 H 24 H Blood Pressure 138/64 121/76 Pulse Oximetry 92 94 Oxygen Delivery Oxygen Flow Rate Fraction of Inspired Oxygen 07/11/25 19:11 07/11/25 19:18 07/11/25 20:00 Temperature Pulse Rate 122 H 113 H 115 H Respiratory Rate 24 H 20 Blood Pressure 153/83 H Pulse Oximetry 93 Oxygen Delivery High Flow Therapy with Na Oxygen Flow Rate 35 Fraction of Inspired Oxygen 35 07/11/25 20:00 07/11/25 20:00 07/11/25 20:00 Temperature 99.3 F Pulse Rate 107 H 107 H 90 Respiratory Rate 20 29 H Blood Pressure 153/83 H Pulse Oximetry 92 92 Oxygen Delivery High Flow Therapy with Na Oxygen Flow Rate 40 Fraction of Inspired Oxygen 40 07/11/25 20:11 07/11/25 21:00 07/11/25 21:47 Temperature 99.2 F Pulse Rate 115 H 111 H 95 Respiratory Rate 34 H 22 H Blood Pressure 148/52 H Pulse Oximetry 88 L 91 Oxygen Delivery High Flow Therapy with Na Oxygen Flow Rate 40 Fraction of Inspired Oxygen 40 07/11/25 22:00 07/11/25 22:00 07/11/25 23:00 Temperature 99.3 F 99 F Pulse Rate 107 H 108 H 100 Respiratory Rate 31 H 36 H Blood Pressure 132/97 H 143/92 H Pulse Oximetry 92 88 L Oxygen Delivery Oxygen Flow Rate Fraction of Inspired Oxygen 07/12/25 00:00 07/12/25 00:00 07/12/25 00:00 Temperature 98.2 F Pulse Rate 104 H 108 H 108 H Respiratory Rate 25 H Blood Pressure 146/102 H Pulse Oximetry 92 85 L Oxygen Delivery High Flow Therapy with Na Oxygen Flow Rate 40 Fraction of Inspired Oxygen 45 07/12/25 00:57 07/12/25 01:24 07/12/25 01:28 Temperature 98.8 F Pulse Rate 105 H 121 H 102 H Respiratory Rate 22 H 22 H 22 H Blood Pressure 148/90 H Pulse Oximetry 93 91 Oxygen Delivery High Flow Therapy with Na Oxygen Flow Rate 40 Fraction of Inspired Oxygen 45 07/12/25 01:37 07/12/25 02:00 07/12/25 02:00 Temperature 99.4 F Pulse Rate 100 90 95 Respiratory Rate 20 22 H Blood Pressure 138/85 Pulse Oximetry 92 Oxygen Delivery Oxygen Flow Rate Fraction of Inspired Oxygen 07/12/25 02:52 07/12/25 03:00 07/12/25 04:00 Temperature 99 F Pulse Rate 99 109 H 146 H Respiratory Rate 22 H Blood Pressure 165/109 H Pulse Oximetry 86 L 90 Oxygen Delivery High Flow Therapy with Na Oxygen Flow Rate 40 Fraction of Inspired Oxygen 50 07/12/25 04:00 07/12/25 04:34 07/12/25 04:40 Temperature 97.7 F Pulse Rate 146 H 109 H 94 Respiratory Rate 20 24 H Blood Pressure 187/137 H Pulse Oximetry 82 L 91 90 Oxygen Delivery High Flow Therapy with Na High Flow Therapy with Na Oxygen Flow Rate 45 45 Fraction of Inspired Oxygen 60 60 07/12/25 05:00 07/12/25 06:00 07/12/25 06:00 Temperature 98 F Pulse Rate 99 94 102 H Respiratory Rate 24 H 18 Blood Pressure 134/86 94/63 L Pulse Oximetry 91 97 Oxygen Delivery Oxygen Flow Rate Fraction of Inspired Oxygen 07/12/25 06:28 07/12/25 07:00 07/12/25 07:27 Temperature Pulse Rate 94 81 Respiratory Rate 30 H Blood Pressure 108/89 Pulse Oximetry 91 93 92 Oxygen Delivery High Flow Therapy with Na High Flow Therapy with Na Oxygen Flow Rate 45 45 Fraction of Inspired Oxygen 45 45 07/12/25 07:27 07/12/25 07:42 07/12/25 08:00 Temperature 97.7 F Pulse Rate 90 90 73 Respiratory Rate 24 H 22 H 20 Blood Pressure 98/72 L Pulse Oximetry 92 Oxygen Delivery Oxygen Flow Rate Fraction of Inspired Oxygen 07/12/25 08:00 07/12/25 08:00 07/12/25 09:00 Temperature 97.5 F L Pulse Rate 60 98 Respiratory Rate 21 H Blood Pressure 150/81 H Pulse Oximetry 95 91 Oxygen Delivery BiPAP Oxygen Flow Rate Fraction of Inspired Oxygen 07/12/25 09:45 07/12/25 10:00 07/12/25 11:00 Temperature Pulse Rate 67 71 82 Respiratory Rate 25 H 78 H Blood Pressure 126/72 142/80 H Pulse Oximetry 97 96 Oxygen Delivery Oxygen Flow Rate Fraction of Inspired Oxygen 07/12/25 11:52 07/12/25 12:00 07/12/25 12:00 Temperature Pulse Rate 69 82 Respiratory Rate 18 Blood Pressure 137/73 Pulse Oximetry 96 96 Oxygen Delivery BiPAP Oxygen Flow Rate Fraction of Inspired Oxygen 30 Exam Const: General: in distress and uncomfortable Other: Pale Eyes: General: appearance normal, both eyes and all related structures Resp: Other: on Bipap. GI: Inspection: non-distended GI Palp: Yes Soft to palpation, No Tenderness to palpation present (GI), No Guarding due to palpation present (GI) and No Hernia present Auscultation: normal bowel sounds Results Labs 07/12/25 07:13 07/12/25 07:12 Labs: Short CBC 07/12/25 Range/Units 07:13 WBC 12.9 H (4.5-10.0) K/mm3 Hgb 10.1 L (12.0-15.0) g/dL Hct 33.4 L (37.0-47.0) % Plt Count 410 H (150-375) k/mm3 BMP 07/12/25 07:12 Sodium 132 L Potassium 3.9 Chloride 96 L Carbon Dioxide 33 H BUN 41 H Creatinine 0.85 Glucose 211 H Calcium 8.8 Liver Function 07/12/25 Range/Units 07:12 Total Bilirubin 0.6 (0.2-1.3) mg/dL AST 31 (14-36) U/L ALT 23 (6-35) U/L Alkaline Phosphatase 200 H (38-126) U/L Albumin 3.5 (3.5-5.1) g/dL
[2025-07-12] MEDS: CENTRAL LINE FLUSH 10 ML IV PUSH (13:17)
--- NOTE | 2025-07-12 13:22 | PCOTNOTE ---
Attempted to see Patient. Per RN, Patient is medically declining, unable to participate. Patient to be held this date. Will continue to follow.
--- NOTE | 2025-07-12 13:39 | PC.NURSE ---
Order to insert NGT per Dr Allen. NG tube insertion attempted at bedside with 3 different RNs and both nares attempted. Updated Dr Allen about status of NGT. Dr Allen ordered to have ngt placed under fluro in radiology department. Transferred patient down to radiology department for ngt insertion. Radiologist requested patient state her name and date of which patievonnens was able to do. Consent for the procedure was verbally asked and patient stated no. Foster SANDERS, the radiologist, and I all discussed the reasoning for procedure, risks/ complications of not receiving ngt- patient still stated she refused. Pt was then asked all orientation questions which she answered correctly. Dr Allen, Foster SANDERS, patients , patient and myself all had a discussion in the patients room regarding patients current status and next plans. At this time patient remains on bipap/ avaps settings, full code.
--- NOTE | 2025-07-12 14:31 | PCPTNOTE ---
The patient treatment was not able to be completed today. RN reports patient is poor medical condition today and unable to participate in therapy. Will plan to continue treatment per plan of care.
[2025-07-12] MEDS: MAGNESIUM CITRATE 300 ML BTL 150 ML PO (16:10)
[2025-07-13] VITALS (36 sets, daily range): BP systolic 95–163; BP diastolic 55–118; PULSE 76–126; RESP 17–26; TEMP 36.9–37.3; O2SAT 88–100
[2025-07-13] MEDS: IPRATROPIUM BR 0.02% INH SOLN 0.5 MG/2.5 ML VIAL INHALATION ×4 (02:06→20:00)
[2025-07-13 03:43] LABS: Hematocrit 32.3 % (37.0-47.0); Hemoglobin 9.5 g/dL (12.0-15.0); Immature Granulocyte Percent A 0.9 % (0-0.5); Lymphocytes Absolute Auto 0.54 K/mm3 (0.9-3.2); Mean Corpuscular HGB Conc 29.4 g/dl (32-36); Mean Corpuscular Hemoglobin 28.0 pg (26-34); Mean Corpuscular Volume 95.3 fl (80-100); Nucleated Red Blood Cells Absolute Auto 0.000 K/mm3 (0.0-0.012); Nucleated Red Blood Cells Perc 0.0 % (0.0-0.2); Platelet Count Result 282 k/mm3 (150-375); Red Blood Count 3.39 M/mm3 (4.2-5.4); White Blood Count 9.9 K/mm3 (4.5-10.0)
[2025-07-13 04:00] LABS: Alanine Aminotransferase 22 U/L (6-35); Albumin Level 3.2 g/dL (3.5-5.1); Alkaline Phosphatase 215 U/L (38-126); Anion Gap 1 mmol/L (4-12); Aspartate Amino Transferase 26 U/L (14-36); Bilirubin,Total 0.5 mg/dL (0.2-1.3); Blood Urea Nitrogen 36 mg/dL (7-17); Calcium 8.5 mg/dL (8.4-10.2); Carbon Dioxide 32 mmol/L (22-30); Chloride 99 mmol/L (98-107); Estimated CRCL calculation 48 ml/min; Estimated Glomerular Filt Rate > 60; Glucose 188 mg/dL (65-110); Magnesium 2.2 mg/dL (1.6-2.3); Potassium 3.7 mmol/L (3.4-5.0); Sodium 132 mmol/L (137-145); Total Protein 5.6 g/dL (6.3-8.2)
[2025-07-13 04:13] LABS: Burr Cells Occasional; Ovalocytes 1+; Schistocytes None Seen
[2025-07-13] MEDS: LIDOCAINE 1% PF INJ 5 ML VIAL INFILTRATE (07:35)
--- NOTE | 2025-07-13 08:07 | P.PNINT_ITS ---
Progress Note: A&P Assessment and Plan (1) Ileus: Code(s): K56.7 - Ileus, unspecified Status: Acute Assessment and Plan: Patient complained of abdominal pain, abdominal obstructive series showed dilated 07/12: Bedside RNs tried to place NG but were unsuccessful, patient was taken down to the radiology department to have an NG tube placed with fluoroscopy, once patient was down in the radiology department she refused to get the procedure. She was brought back to the ICU without any NG tube -appreciate GI evaluation, was given Mag citrate with no improvement -NPO for now -07/13: Obstructive series continues to show but dilated bowel loops, possible ileus/obstruction -will have surgery also evaluated the patient (2) Encephalopathy: Code(s): G93.40 - Encephalopathy, unspecified Status: Acute Assessment and Plan: Likely related to hypercapnic respiratory failure, sepsis/infection, pretty obtunded, unable to open her eyes or follow simple commands, placed on AVAPS mode -07/10: Repeat head CT: No acute intracranial abnormality -ammonia levels were normal <9. -07/11: her hypercapnia has resolved, patient is more awake, alert, able to answer questions appropriately and follows simple command -07/13: Has been on AVAPS mode all day yesterday and through the night. Continues to be awake and follows simple commands and answers to questions (3) Acute and chronic respiratory failure: Code(s): J96.20 - Acute and chronic respiratory failure, unspecified whether with hypoxia or hypercapnia Status: Acute Assessment and Plan: Acute hypercapnic respiratory failure likely related to multifactorial issues, patient has a history of COPD, pulmonary hypertension, sarcoidosis, interstitial lung disease, now here with urinary tract infection, fall -pCO2 level this morning was 78, patient was placed on BiPAP with repeat pCO2 of level of 77 -pulmonology was consulted, placed patient on AVAPS, I shortened the inspiratory time on the AVAPS to increase the expiratory time -started patient on Solu-Medrol a she is not moving much air bilaterally, left > right, occasional wheezing -patient currently on ceftriaxone and doxycycline (07/07) -given patient has pneumonia plus MRSA screen being positive plus [facility], she was started on vancomycin (07/10) 07/11: Patient did well on AVAPS, repeat ABG showed resolution of hypercapnia, will place her on Vapotherm 07/12: Patient had some episodes of hypoxia overnight, with increased oxygen requirements. Remains on high-flow therapy, 45 L flow rate and 45% FiO2. Chest x-ray shows worsening pulmonary edema and/or multifocal airspace disease. Will give a dose of diuretic -will place patient back on AVAPS as have pCO2 has been increasing -07/13: Will give patient a break from her AVAPS and place her on high-flow therapy. Also given her ileus/obstruction and not having an NG tube put said risk for aspiration. -weaning steroids (4) Sepsis: Code(s): A41.9 - Sepsis, unspecified organism Status: Acute Assessment and Plan: Patient presented with a fall, altered mental status, urinary tract infection -07/07: Urine cultures growing Enterobacter cloaca and Proteus penneri, both of them a susceptible to cefepime -07/07: Blood cultures no growth x2 -07/10: Urine Legionella and streptococcal antigen pending -continue cefepime vancomycin and doxycycline (07/11) UTI and pneumonia -07/11: Overnight patient did drop her blood pressures, albumin 5% 250 mL IV x1 was given despite which her blood pressures remain low, central line was inserted and patient was started on Levophed -she was on Levophed briefly which has been discontinued early this morning -07/13: Patient's blood pressures have been stable, continue to monitor (5) Acute exacerbation of chronic obstructive pulmonary disease: Code(s): J44.1 - Chronic obstructive pulmonary disease with (acute) exacerbation Status: Acute Assessment and Plan: Continue AVAPS and intermittently switched to high-flow therapy -weaning steroids -continue antibiotics (6) UTI (urinary tract infection): Code(s): N39.0 - Urinary tract infection, site not specified Status: Acute Assessment and Plan: Continue antibiotics as above, urine culture as above (7) Paroxysmal atrial fibrillation: Code(s): I48.0 - Paroxysmal atrial fibrillation Status: Chronic Assessment and Plan: Patient with paroxysmal AFib with intermittent rapid ventricular response, she does nonsustained tachycardia -patient was started on amiodarone overnight -07/11: Restarted on sotalol after discussion with Cardiology, amiodarone was turned off -given a ileus/obstruction will hold sotalol -discussed with Cardiology, and updated them that patient's heart rate dropped down to the 50s and 60s on 07/12. Dr. Sorensen agreed to holding sotalol, if for some reason she remains in AFib RVR recommended trying IV metoprolol per -also holding rivaroxaban since patient is NPO. Also her anticoagulation was stopped by Cardiology as she had a fall. 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 intake -07/12: blood sugars have been elevated which could be related to steroids, infection, Lantus was added -07/13: Now that she is NPO, blood sugars been adequate, will hold Lantus for now, Mblood sugars remain elevated may need to adjust dose of Lantus (9) Sarcoid: Code(s): D86.9 - Sarcoidosis, unspecified Status: Acute Assessment and Plan: Recently diagnosed sarcoidosis and [facility] -patient's calcium level a within normal limits -weaning Solu-Medrol to 20 mg IV daily, will keep her on a maintenance dose of Solu-Medrol for sarcoidosis until she can start taking oral prednisone (10) Pulmonary hypertension: Code(s): I27.20 - Pulmonary hypertension, unspecified Status: Acute Assessment and Plan: History of pulmonary hypertension, likely related to sleep apnea, sarcoidosis, interstitial lung disease, coronary artery disease, COPD/: Pulmonology 11/21/2022: Echocardiogram RVSP was 59 mmHg Cardiology following the patient for atrial fibrillation and atrial tachycardia 07/11/2025: Echocardiogram Summary 1. Definity contrast administered improved wall motion interpretation. 2. Left ventricular chamber dimension is normal. 3. Left ventricular systolic function is normal, estimated at 65-70. 4. There is moderate concentric increased left ventricular wall thickness. 5. The left ventricular diastolic function is abnormal. 6. E/e' 26 is significantly elevated. 7. Right ventricular systolic function is reduced based on an abnormal TAPSE 1.4 cm. 8. Left atrial chamber dimension is mildly enlarged. 9. There is moderate aortic valve sclerosis. 10. The mitral valve has a moderately calcified annulus. 11. There is trace mitral valve regurgitation. 12. There is moderate tricuspid valve regurgitation. 13. Severe pulmonary hypertension, estimated pulmonary arterial systolic pressure is 60 mmHg. 14. There is trace pulmonic regurgitation. (11) Fall: Code(s): W19.XXXA - Unspecified fall, initial encounter Status: Acute Assessment and Plan: Patient presented with a fall on 07/07 -status post fusion of C2-C6 at [facility] on 06/26/2025 for cervical myelopathy -07/07: CT cervical spine showed fluid collection at the surgical site. Neurosurgery at [facility] evaluated the patient, no drainage from her incision and hardware was well-positioned, the neurosurgery team had no additional recommendations. -PT OT has been ordered (12) Pressure ulcer: Code(s): L89.90 - Pressure ulcer of unspecified site, unspecified stage Status: Acute Assessment and Plan: Stage III pressure ulcer on coccyx and sacrum -wound care following Plan DVT prophylaxis: Patient had recent fall on rivaroxaban, currently holding chemoprophylaxis since patient had a fall with altered mental status. Continue SCDs Stress ulcer prophylaxis: Protonix Nutrition: NPO Code Status: Full code Critical Care Time Spent: 34 minutes Discussed at length with the patient and in the room updated both of them regarding patient's condition and plan of care. From what the bedside RNs and myself understand, patient and her do not know the gravity of her illness. I did explain to them step by step regarding all the issues that she is going through at this time including the ileus/obstruction and that is why she is NPO. Patient has been refusing NG tube placement even with fluoroscopy guidance. I did discuss with them that since she is on a BiPAP/AVAPS machine she has a high risk of aspiration. I have asked the to talk to the patient and, with a plan, I also offered palliative care/hospice if she does not want further care and procedures. Due to a high probability of clinically significant, life threatening deterioration, the patient required my highest level of preparedness to intervene emergently and I personally spent this critical care time directly and personally managing the patient. This critical care time included obtaining a history; examining the patient; pulse oximetry; ordering and review of studies; arranging urgent treatment with development of a management plan; evaluation of patient's response to treatment; frequent reassessment; and discussions with other providers. It was exclusive of separately billable procedures and treating other patients and teaching time. Please see Assessment and Plan section and the rest of the note for further information on patient assessment and treatment This dictation may have been done utilizing a voice recognition system. Attempts have been made to correct errors. However, there may be uncorrected grammatical, spelling, and recognitions errors present. Subjective Date/time seen: 07/13/25 08:07 Interval history: Reason for consult: Encephalopathy, hypercapnic respiratory failure, intermittent atrial fibrillation with rapid ventricular response, sepsis 07/13/2025: Patient seen and examined the ICU, is on BiPAP mask in AVAPS mode. Is awake, alert, answers to questions appropriately and follows simple commands in all extremities. Patient had dilated bowel loops he since yesterday, unable to place NG tubes on multiple trials, patient was taken down for fluoroscopy guided NG tube placement which she refused when she was down in the radiology department. Patient responded well to diuresis, negative fluid balance with improvement in chest x-ray. Patient has been afebrile, hemodynamically stable, irregular heart rhythm but rate controlled. Patient pulled out her IV lines overnight and does not have any access. Have asked the vascular team to place a PICC line Review of Systems Review of Systems: All systems reviewed & are unremarkable except as noted in HPI and below Exam Narrative: General: Ill-appearing female, appears older than her stated age HEENT:? pupils equal and reactive, sclera is clear, BiPAP mask in place Neck:? Hard cervical collar in place Respiratory: Improved air entry bilaterally, decreased at bases, rales on the upper lobes bilaterally, occasional wheezing Cardiac:? Irregularly irregular, rate controlled Abdomen:? Soft, periumbilical tenderness, slightly distended, hypoactive bowel sounds Extremities:? Upper extremities edematous, palpable pedal pulses on lower extremities Neuro:? Patient is on AVAPS, is awake, alert, able to answer questions and follows simple commands in all extremities Skin:? Bruising noted on upper extremities Psych:? Normal mentation, depressed affect Objective Data Vital Signs Vital Signs: Vital Signs - 24 hr 07/12/25 08:50 07/12/25 09:00 07/12/25 09:45 Temperature 97.5 F L Pulse Rate 118 H 98 67 Respiratory Rate 30 H 21 H Blood Pressure 150/81 H Pulse Oximetry 90 91 Oxygen Delivery BiPAP Oxygen Flow Rate Fraction of Inspired Oxygen 07/12/25 10:00 07/12/25 11:00 07/12/25 11:30 Temperature Pulse Rate 71 82 76 Respiratory Rate 25 H 78 H 20 Blood Pressure 126/72 142/80 H Pulse Oximetry 97 96 96 Oxygen Delivery BiPAP Oxygen Flow Rate Fraction of Inspired Oxygen 07/12/25 11:52 07/12/25 12:00 07/12/25 12:00 Temperature Pulse Rate 69 82 Respiratory Rate 18 Blood Pressure 137/73 Pulse Oximetry 96 96 Oxygen Delivery BiPAP Oxygen Flow Rate Fraction of Inspired Oxygen 30 07/12/25 13:00 07/12/25 13:30 07/12/25 13:30 Temperature Pulse Rate 79 76 76 Respiratory Rate 19 20 20 Blood Pressure 121/92 H Pulse Oximetry 97 95 Oxygen Delivery BiPAP Oxygen Flow Rate Fraction of Inspired Oxygen 07/12/25 13:44 07/12/25 14:00 07/12/25 14:00 Temperature Pulse Rate 74 78 80 Respiratory Rate 20 19 Blood Pressure 105/57 L Pulse Oximetry 97 Oxygen Delivery Oxygen Flow Rate Fraction of Inspired Oxygen 07/12/25 15:00 07/12/25 16:00 07/12/25 16:00 Temperature 98 F Pulse Rate 77 79 Respiratory Rate 20 16 Blood Pressure 121/57 L 105/55 L Pulse Oximetry 100 92 94 Oxygen Delivery High Flow Therapy with Na Oxygen Flow Rate 45 Fraction of Inspired Oxygen 45 07/12/25 16:00 07/12/25 17:00 07/12/25 17:51 Temperature 98.3 F Pulse Rate 76 82 87 Respiratory Rate 18 Blood Pressure 128/78 Pulse Oximetry 100 Oxygen Delivery Oxygen Flow Rate Fraction of Inspired Oxygen 07/12/25 17:51 07/12/25 19:00 07/12/25 20:00 Temperature 98.9 F Pulse Rate 73 96 94 Respiratory Rate 24 H 22 H Blood Pressure 118/66 113/71 Pulse Oximetry 98 100 95 Oxygen Delivery High Flow Therapy with Na Oxygen Flow Rate 45 Fraction of Inspired Oxygen 45 07/12/25 20:00 07/12/25 20:00 07/12/25 20:06 Temperature 98.9 F Pulse Rate 101 H 101 H 80 Respiratory Rate 30 H 22 H Blood Pressure 111/69 Pulse Oximetry 98 Oxygen Delivery Oxygen Flow Rate Fraction of Inspired Oxygen 07/12/25 20:07 07/12/25 20:16 07/12/25 21:00 Temperature Pulse Rate 94 94 95 Respiratory Rate 17 25 H 26 H Blood Pressure 111/69 Pulse Oximetry 99 97 Oxygen Delivery High Flow Therapy with Na Oxygen Flow Rate 45 Fraction of Inspired Oxygen 45 07/12/25 22:00 07/12/25 22:00 07/12/25 23:00 Temperature 98.8 F Pulse Rate 106 H 84 102 H Respiratory Rate 22 H 20 Blood Pressure 131/70 136/69 Pulse Oximetry 97 99 Oxygen Delivery Oxygen Flow Rate Fraction of Inspired Oxygen 07/12/25 23:41 07/13/25 00:00 07/13/25 00:00 Temperature Pulse Rate 95 81 102 H Respiratory Rate 23 H Blood Pressure Pulse Oximetry 96 98 Oxygen Delivery High Flow Therapy with Na Oxygen Flow Rate 45 Fraction of Inspired Oxygen 45 07/13/25 00:00 07/13/25 01:00 07/13/25 02:00 Temperature 98.8 F 98.6 F Pulse Rate 102 H 92 87 Respiratory Rate 20 20 Blood Pressure 153/118 H 126/55 L Pulse Oximetry 99 95 Oxygen Delivery Oxygen Flow Rate Fraction of Inspired Oxygen 07/13/25 02:00 07/13/25 02:06 07/13/25 02:07 Temperature Pulse Rate 103 H 81 110 H Respiratory Rate 20 20 20 Blood Pressure 119/78 Pulse Oximetry 97 96 Oxygen Delivery Oxygen Flow Rate Fraction of Inspired Oxygen 07/13/25 02:44 07/13/25 04:00 07/13/25 04:00 Temperature 98.8 F Pulse Rate 91 106 H 85 Respiratory Rate 20 Blood Pressure 119/78 Pulse Oximetry 93 97 Oxygen Delivery High Flow Therapy with Na Oxygen Flow Rate 45 Fraction of Inspired Oxygen 45 07/13/25 04:00 07/13/25 04:31 07/13/25 05:00 Temperature 98.8 F Pulse Rate 90 107 H 76 Respiratory Rate 20 21 H 18 Blood Pressure 133/76 113/76 Pulse Oximetry 96 97 95 Oxygen Delivery Oxygen Flow Rate Fraction of Inspired Oxygen 07/13/25 06:00 07/13/25 06:00 07/13/25 07:00 Temperature 98.6 F Pulse Rate 96 96 103 H Respiratory Rate 20 20 Blood Pressure 138/76 163/85 H Pulse Oximetry 92 95 Oxygen Delivery Oxygen Flow Rate Fraction of Inspired Oxygen Intake/Output Intake/Output: Intake & Output 07/10/25 07/11/25 07/12/25 07/13/25 23:59 23:59 23:59 23:59 Intake Total 1217.4 1859.2 150 Output Total 522 786 3385 300 Balance 807.4 1434.2 -1950 -300 Meds/Results Medications: Active Medications Generic Name Dose Route Start Last Admin Trade Name Freq PRN Reason Stop Dose Admin Acetaminophen 650 mg 07/07/25 08:10 07/11/25 20:25 Acetaminophen 325 Mg Tablet PO 650 mg Q4H PRN Administration Mild Pain (1-3) or Fever Acetaminophen 650 mg 07/10/25 17:36 07/10/25 21:18 Acetaminophen 650 Mg Suppository RECTAL 650 mg Q6H PRN Administration Fever Dextrose 12.5 gm 07/10/25 15:08 Dextrose 50% 25 Gm/50 Ml Syringe IV PUSH PRN PRN Hypoglycemia Protocol Enoxaparin Sodium 40 mg 07/08/25 09:00 07/12/25 07:47 Enoxaparin 40 Mg/0.4 Ml Syringe SUB-Q 40 mg DAILY IVONE Administration Furosemide 40 mg 07/08/25 09:00 07/10/25 11:01 Furosemide Inj 40 Mg/4 Ml Vial IV PUSH Not Given On Hold: 07/10/25 15:06 DAILY IVONE Glucagon 1 mg 07/10/25 15:08 Glucagon For Inj 1 Mg Vial IM PRN PRN Hypoglycemia Protocol Glucose 15 gm 07/10/25 15:08 Glucose Oral Gel 15 Gm Of Glucse In 37.5 Gm Tube PO PRN PRN Hypoglycemia Protocol Guaifenesin 1,200 mg 07/07/25 21:00 07/10/25 11:01 Guaifenesin 12 Hr 600 Mg Tabcr PO Not Given On Hold: 07/10/25 15:02 Q12HR IVONE Dextrose 1,000 mls @ 100 mls/hr 07/10/25 15:08 Dextrose 5% 1,000 Ml IVPB PRN PRN Hypoglycemia Protocol Doxycycline Hyclate 100 mg/ 100 mls @ 100 mls/hr 07/10/25 21:00 07/12/25 20:37 Sodium Chloride IVPB 100 mls/hr Q12H IVONE Administration Cefepime HCl 2 gm/ Sodium 50 mls @ 100 mls/hr 07/11/25 10:20 07/12/25 20:29 Chloride IVPB 100 mls/hr Q12HR IVONE Administration Vancomycin HCl 1,500 mg in 500 mls @ 250 mls/hr 07/13/25 09:00 Vancomycin 1,500 Mg/Ns 500 Ml IVPB Q18H [facility] Insulin Aspart 3 - 6 units 07/10/25 17:00 07/13/25 05:25 Insulin Aspart (*Bkc) 100 Units/Ml SUB-Q Not Given Q4HR [facility] Protocol Insulin Glargine 10 units 07/12/25 09:00 07/12/25 16:10 Insulin Glargine (*Bkc) 100 Units/Ml SUB-Q Not Given DAILY [facility] Ipratropium [place] 0.5 mg 07/10/25 15:30 07/13/25 02:06 Ipratropium Br 0.02% Inh Soln 0.5 Mg/2.5 Ml Vial INHALATION 0.5 mg Q6HRT IVONE Administration Levalbuterol HCl 0.63 mg 07/10/25 15:26 07/13/25 02:05 Levalbuterol Neb 1.25 Mg/3 Ml INHALATION 0.63 mg Q6HRT IVONE Administration Loperamide HCl 2 mg 07/07/25 14:57 Loperamide Hcl 2 Mg Capsule PO On Hold: 07/10/25 15:03 PRN PRN Diarrhea Losartan Potassium 25 mg 07/08/25 09:00 07/10/25 11:01 Losartan Potassium 25 Mg Tablet PO Not Given On Hold: 07/10/25 15:04 DAILY IVONE Methocarbamol 500 mg 07/07/25 14:53 07/09/25 08:32 Methocarbamol 500 Mg Tablet PO 500 mg On Hold: 07/10/25 15:03 Q8H PRN Administration muscle spasms Methylprednisolone Sodium Succinate 40 mg 07/12/25 18:00 07/13/25 05:32 Methylprednisolone Sod Succ 40 Mg Vial IV PUSH 07/14/25 17:59 40 mg Q12H IVONE Administration Pantoprazole Sodium 40 mg 07/08/25 09:00 07/10/25 11:02 Pantoprazole 40 Mg Tablet PO Not Given On Hold: 07/10/25 15:05 QAM IVONE Pantoprazole Sodium 40 mg 07/10/25 15:45 07/12/25 07:46 Pantoprazole Sodium Iv 40 Mg Vial IV PUSH 40 mg QAM IVONE Administration Pramipexole Dihydrochloride 0.5 mg 07/07/25 21:00 07/09/25 20:52 Pramipexole 0.5 Mg Tablet PO 0.5 mg On Hold: 07/10/25 15:03 HS IVONE Administration Pravastatin Sodium 10 mg 07/08/25 09:00 07/10/25 11:02 Pravastatin Sodium 10 Mg Tablet BY MOUTH Not Given On Hold: 07/10/25 15:05 DAILY [facility] Sodium Chloride 20 ml 07/10/25 20:33 Central Line Flush IV PUSH PRN PRN after blood draws Sotalol HCl 80 mg 07/11/25 10:25 07/12/25 08:45 Sotalol Hcl 80 Mg Tablet PO Not Given On Hold: 07/12/25 13:42 Q12HR [facility] Trimethobenzamide HCl 200 mg 07/07/25 14:56 07/12/25 04:26 Trimethobenzamide Hcl 200 Mg/2 Ml Vial IM 200 mg Q6H PRN Administration Nausea And Vomiting Vitamin D 25 mcg 07/08/25 09:00 07/10/25 11:01 Cholecalciferol (Vitamin D3) 25 Mcg (1,000 Units) Tablet PO Not Given On Hold: 07/10/25 15:02 DAILY [facility] Radiology Results: ITS Impressions Cervical Spine CT 07/07/25 06:30 IMPRESSION: HEAD: 1. No acute intracranial findings. 2. Bilateral mastoiditis. C-SPINE: 1. No acute fracture. 2. Ill-defined fluid and postoperative changes posterior to upper cervical spine. 3. Extensive bilateral upper lung airspace disease, and left pleural effusion. Chest/Abdomen/Pelvis CT 07/07/25 07:13 IMPRESSION: 1. Diffuse lung disease, likely a combination of pneumonia in the upper lobes and left lower lobe and mild pulmonary edema. 2. Small pleural effusions. 3. Colitis involving the rectosigmoid. Head CT 07/10/25 15:36 Impression: 1.No acute intracranial abnormality. Chest X-Ray 07/13/25 07:52 IMPRESSION: 1. Improved aeration of the lungs with persisting pulmonary edema or consolidations in the upper lobes left worse than right. Abdomen X-Ray 07/13/25 07:53 IMPRESSION: Multiple loops of dilated small bowel could be associated with ileus; correlate clinically to exclude obstruction. Labs Labs: Laboratory Results - last 24 hr 07/12/25 07/12/25 07/12/25 07:12 11:43 16:08 WBC RBC Hgb Hct MCV MCH MCHC RDW Plt Count MPV Immature Gran % (Auto) Neut % (Auto) Lymph % (Auto) [place] % (Auto) Eos % (Auto) Baso % (Auto) Lymph # (Auto) [place] # (Auto) Eos # (Auto) Baso # (Auto) Abs Immat Gran (auto) Absolute Neuts (auto) Absolute Nucleated RBC Band Neutrophils % Nucleated RBC % Platelet Estimate Ovalocytes [place] Cells Schistocytes Sodium 132 L Potassium 3.9 Chloride 96 L Carbon Dioxide 33 H Anion Gap 3 L BUN 41 H Creatinine 0.85 Estim Creat Clear Calc 48 Estimated GFR > 60 Glucose 211 H POC Capillary Glucose 187 H 177 H Lactic Acid Calcium 8.8 Phosphorus 2.6 Magnesium 2.1 Total Bilirubin 0.6 AST 31 ALT 23 Alkaline Phosphatase 200 H Total Protein 6.4 Albumin 3.5 Vancomycin Trough 19.3 07/12/25 07/13/25 07/13/25 20:36 01:06 03:35 WBC 9.9 RBC 3.39 L Hgb 9.5 L Hct 32.3 L MCV 95.3 MCH 28.0 MCHC 29.4 L RDW 20.5 H Plt Count 282 MPV 10.3 Immature Gran % (Auto) 0.9 H Neut % (Auto) 85.5 H Lymph % (Auto) 5.5 L [place] % (Auto) 8.0 Eos % (Auto) 0.0 Baso % (Auto) 0.1 L Lymph # (Auto) 0.54 L [place] # (Auto) 0.8 H Eos # (Auto) 0.0 Baso # (Auto) 0.0 Abs Immat Gran (auto) 0.09 H Absolute Neuts (auto) 8.5 H Absolute Nucleated RBC 0.000 Band Neutrophils % Not Reportable Nucleated RBC % 0.0 Platelet Estimate Adequate Ovalocytes 1+ [place] Cells Occasional Schistocytes None seen Sodium 132 L Potassium 3.7 Chloride 99 Carbon Dioxide 32 H Anion Gap 1 L BUN 36 H Creatinine 0.86 Estim Creat Clear Calc 48 Estimated GFR > 60 Glucose 188 H POC Capillary Glucose 168 H 198 H Lactic Acid 1.4 Calcium 8.5 Phosphorus 2.9 Magnesium 2.2 Total Bilirubin 0.5 AST 26 ALT 22 Alkaline Phosphatase 215 H Total Protein 5.6 L Albumin 3.2 L Vancomycin Trough Quality VTE Prophylaxis VTE prophylaxis: mechanical ordered
[2025-07-13] MEDS: ENOXAPARIN 40 MG/0.4 ML SYRINGE SUB-Q (08:27)
[2025-07-13] MEDS: PANTOPRAZOLE SODIUM IV 40 MG VIAL IV PUSH (08:27)
[2025-07-13] MEDS: FUROSEMIDE INJ 40 MG/4 ML VIAL IV PUSH (08:28)
[2025-07-13] MEDS: DOXYCYCLINE IV 100 MG in SODIUM CHLORIDE 0.9% IV 100 ML IVPB ×2 (08:29→20:20)
[2025-07-13] MEDS: CEFEPIME 2 GM in SODIUM CHLORIDE 0.9% IV 50 ML 100 ML IVPB ×2 (08:30→20:15)
[2025-07-13] MEDS: VANCOMYCIN 1,500 MG/NS 500 ML 1,500 MG/500 ML BAG 250 MG IVPB (09:10)
[2025-07-13] MEDS: KCL 40 MEQ/WATER 100 ML 100 ML 25 ML IVPB (09:35)
--- NOTE | 2025-07-13 10:05 | PM.CNGS ---
Assessment and Plan Assessment and plan (1) Ileus: Code(s): K56.7 - Ileus, unspecified <Gerson Ochoa, DO - Last Filed: 07/13/25 10:32> Status: Acute <Gerson E. Ochoa, DO - Last Filed: 07/13/25 10:32> Assessment and Plan: General surgery consulted for distended abdomen and dilated loops of bowel on KUB 07/12 and 07/13, worsening today, SBO vs Ileus. No BM or flatus for at least 4 days. No abdominal surgical history. She presented after being [facility] at [facility] and was found to have pneumonia and a UTI. NGT has been attempted to be placed 3 times without success and she refused placement with radiology yesterday, but she states she is more agreeable today. We will order a CTAP w/contrast, recommend NGT with 18 Fr NGT if possible in the setting of patient's history of nasal septal deviation, will order with fluoroscopy. Abdominal exam remains relatively benign at this time, slightly distended and some mid abdominal tenderness, but nonperitoneal. Will obtain KUB tomorrow morning. Continue NGT to LIWS. Will consider SBFT after decompression. Replace electrolytes PRN. Encourage ambulation. Okay for ice chips for comfort and chloraseptic spray as needed. Surgery will continue to follow. Please seen attending attestation for further plan and updates <Gerson Ochoa, DO - Last Filed: 07/13/25 10:32> (2) Sepsis: Code(s): A41.9 - Sepsis, unspecified organism <Gerson Suazo. Gabriela, DO - Last Filed: 07/13/25 10:32> Status: Acute <Gerson E. Ochoa, DO - Last Filed: 07/13/25 10:32> Assessment and Plan: continue abx <Gerson Gabriele. Gabriela, DO - Last Filed: 07/13/25 10:32> (3) Acute and chronic respiratory failure: Code(s): J96.20 - Acute and chronic respiratory failure, unspecified whether with hypoxia or hypercapnia <Gerson Gabriele. Gabriela, DO - Last Filed: 07/13/25 10:32> Status: Acute <Gerson E. Ochoa, DO - Last Filed: 07/13/25 10:32> Assessment and Plan: on home O2 at baseline, now on vapotherm, weaning O2 demands <Gerson E. Ochoa, DO - Last Filed: 07/13/25 10:32> (4) Sarcoid: Code(s): D86.9 - Sarcoidosis, unspecified <Gerson E. Ochoa, DO - Last Filed: 07/13/25 10:32> Status: Acute <Gerson E. Ochoa, DO - Last Filed: 07/13/25 10:32> Assessment and Plan: newly diagnosed, outside facility recommended Prednisone <Gerson E. Ochoa, DO - Last Filed: 07/13/25 10:32> (5) Respiratory failure with hypoxia and hypercapnia: Code(s): J96.91 - Respiratory failure, unspecified with hypoxia; J96.92 - Respiratory failure, unspecified with hypercapnia <Gerson E. Ochoa, DO - Last Filed: 07/13/25 10:32> Status: Acute <Gerson E. Ochoa, DO - Last Filed: 07/13/25 10:32> (6) UTI (urinary tract infection): Code(s): N39.0 - Urinary tract infection, site not specified <Gerson E. Ochoa, DO - Last Filed: 07/13/25 10:32> Status: Acute <Gerson E. Ochoa, DO - Last Filed: 07/13/25 10:32> Assessment and Plan: Cultures grew Enterobacter cloacea and proteus penneri, continue abx <Gerson E. Ochoa, DO - Last Filed: 07/13/25 10:32> (7) Pneumonia: Code(s): J18.9 - Pneumonia, unspecified organism <Gerson E. Ochoa, DO - Last Filed: 07/13/25 10:32> Status: Acute <Gerson E. Ochoa, DO - Last Filed: 07/13/25 10:32> Assessment and Plan: continue abx, respiratory support, pulmonary toilet with IS, wean O2 as able <Gerson E. Ochoa, DO - Last Filed: 07/13/25 10:32> (8) Pleural effusion: Code(s): J90 - Pleural effusion, not elsewhere classified <Gerson E. Ochoa, DO - Last Filed: 07/13/25 10:32> Status: Acute <Gerson E. Ochoa, DO - Last Filed: 07/13/25 10:32> History of Present Illness Consult details Consult date: 07/13/25 <eGrson Ochoa DO - Last Filed: 07/13/25 10:32> 07/13/25 <Dick Shahid MD - Last Filed: 07/13/25 12:13> Narrative: Patient is a 75 yo female which a PMH of COPD on home O2, pulmonary hypertension, type 2 diabetes, polymyalgia rheumatica, hx of TIA, paroxysmal AFib on xarelto currently being held, HLD, multifocal atrial tachycardia, GERD, and HTN. She recently underwent a C2-C6 fusion for cervical myelopathy on 06/26. She was discharged from the hospital on 07/04 to [facility], but was found down in her room on 07/07 and was transported to [facility]. Her workup revealed pneumonia as well as a UTI, cultures currently growing Enterobacter cloacae and proteus penneri. She is being treated with rocephin and azithromycin. She initially did well on the floor, but was found to have worsening respiratory status on the floor and was transferred to the ICU. She was found to have a respiratory acidosis at that time and placed on BiPAP, she has since been weaned to vapotherm on 45% FiO2 @ 35 L. She had not had a bowel movement for at least 4 days and has not passed any flatus. She began feeling more distended during that time and a KUB was obtained 07/12 which showed dilated loops of bowel. A KUB today demonstrated worsening dilated loops of bowel. GI was consulted 07/12 who recommended NGT placement. This was attempted 3 times, but it continued to coil and was unable to be placed. She was sent down to radiology to have this placed under fluoroscopy, but she refused at that time. Today, she is more agreeable to proceed with NGT placement. She denies a previous surgical history. She has never had a small bowel obstruction in the past. She had a colonoscopy, EGD, and capsule endoscopy in 2023 for anemia, which was normal. Labs today showed WBC 9.9, Hgb 9.5, Na 132, K 3.7, CO2 32, Cr 0.86, BUN 36. On exam, her abdomen is soft, minimally TTP in mid abdomen, distended, and nonperitoneal. She is stable, not on pressors, and afebrile. She denies current nause, vomiting, fevers, chills. 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 Chronic respiratory failure with hypoxia, on home oxygen therapy Transient ischemic attack Chronic hyponatremia Venous insufficiency Iron deficiency anemia Polymyalgia rheumatica Small vessel disease, cerebrovascular Chronic anticoagulation Paroxysmal atrial fibrillation Coronary artery disease Microscopic colitis Chronic diarrhea Exocrine pancreatic insufficiency COVID-19 Cervical arthritis Pneumonia Dyslipidemia Essential hypertension Gastro-esophageal reflux disease without esophagitis Multifocal atrial tachycardia <Gerson Ochoa, DO - Last Filed: 07/13/25 10:32> Surgical History Surgical History: Surgical History History of heart artery stent History of cardiac catheterization History of bilateral knee replacement History of bilateral carpal tunnel release History of colonoscopy with polypectomy History of coronary artery bypass graft x 2 (12/2013) History of Achilles tendon repair History of spinal surgery Lumbar micro discectomy infusion. History of mitral valve repair History of shoulder surgery History of cataract extraction Left History of hand surgery trigger finger, thumb <Gerson Ochoa, DO - Last Filed: 07/13/25 10:32> Family History Family History: Family History Mother Cerebrovascular accident Family history of diabetes mellitus in first degree relative Family history of coronary artery disease Acute myocardial infarction Diabetes mellitus Father Carcinoma of colon Family history of lung cancer Family history of malignant neoplasm of esophagus Sibling Liver disease Liver transplant recipient Other Family history of malignant neoplasm of brain Family history of malignant neoplasm of stomach <Gerson Ochoa, DO - Last Filed: 07/13/25 10:32> Social History Social History: Social History Social History: Surrogate medical decision maker: Filippo Clifford, spouse. Code status: Full code. Smoking status: Never smoker Second hand tobacco smoke exposure: Yes Alcohol intake: unknown Drinks per week: 1 Alcohol use details: Rare alcohol use in moderation. Substance use: unknown Substance use type: does not use Do You Feel Safe in your Home?: Yes Lack of Transportation: No Lack of Food: Never True Current Housing: I Have Housing Concerned About Future Housing: No Difficulty Paying Gas/Electric Bills: No Difficulty Paying for Meds: No Currently Unemployed: No Education: Decline to Answer Difficulty w/ Childcare or Family Care: No Living arrangements: with family Additional living arrangements comments: Lives in [facility]. Occupation/Education: retired Additional occupation/education comments: Worked in [employer]. Spiritual care concerns: No <Gerson Ochoa, DO - Last Filed: 07/13/25 10:32> Meds Home Medications and Allergies Home medications: Home Medications ?Medication ?Instructions ?Recorded ?Confirmed ?Type arformoterol 15 mcg/2 mL solution See Rx Instructions .Route 06/16/24 07/07/25 Rx for nebulization .COMPLEX #30 ea evolocumab 140 mg/mL subcutaneous 140 mg subcut .every 2 weeks #2 mL 11/10/24 07/07/25 Rx pen injector (Angelika Freeman) metoprolol tartrate 25 mg tablet See Rx Instructions .Route 01/05/25 07/07/25 Rx .COMPLEX #180 tabs rivaroxaban 20 mg tablet (Xarelto) See Rx Instructions .Route 01/10/25 07/07/25 Rx .COMPLEX #30 tabs furosemide 40 mg tablet See Rx Instructions .Route 02/13/25 07/07/25 Rx .COMPLEX #90 tabs pravastatin 10 mg tablet See Rx Instructions .Route 03/07/25 07/07/25 Rx .COMPLEX #90 tabs pramipexole 0.5 mg tablet 0.5 mg PO HS #90 tabs 03/19/25 07/07/25 Rx pantoprazole 40 mg tablet,delayed 40 mg PO QAM #90 tabs 04/02/25 07/07/25 Rx release sotalol 80 mg tablet 80 mg PO Q12H 04/27/25 07/07/25 History metformin 500 mg tablet,extended 1,000 mg (2 x 500 mg) PO QPM #90 05/22/25 07/07/25 Rx release 24 hr tabs cholecalciferol (vitamin D3) 25 25 mcg PO DAILY 07/07/25 07/07/25 History mcg (1,000 unit) capsule (Vitamin D3) insulin glargine 100 unit/mL 10 unit subcut DAILY 07/07/25 07/07/25 History subcutaneous solution (Lantus U-100 Insulin) insulin lispro 100 unit/mL 5 unit subcut TID 07/07/25 07/07/25 History subcutaneous solution (Humalog U-100 Insulin) losartan 25 mg tablet 25 mg PO DAILY 07/07/25 07/07/25 History magnesium oxide 250 mg PO DAILY 07/07/25 07/07/25 History methocarbamol 500 mg tablet 500 mg PO Q8H PRN muscle spasms 07/07/25 07/07/25 History potassium chloride 10 mEq oral 20 meq PO DAILY 07/07/25 07/07/25 History packet (Pokonza) <Gerson Ochoa, DO - Last Filed: 07/13/25 10:32> Allergies/Adverse reactions: Allergies Allergy/AdvReac Type Severity Reaction Status Date / Time ciprofloxacin Allergy Mild Unknown Verified 07/07/25 13:13 levofloxacin Allergy Unknown Unknown Verified 07/07/25 13:13 lisinopril Allergy Unknown Unknown Verified 07/07/25 13:13 amoxicillin (From Augmentin) AdvReac Severe Confusion Verified 07/07/25 13:13 clavulanic acid (From AdvReac Severe Confusion Verified 07/07/25 13:13 Augmentin) codeine AdvReac Mild Vomiting Verified 07/12/25 07:48 tramadol AdvReac Mild Vomiting Verified 07/07/25 13:13 <Gerson Ochoa, DO - Last Filed: 07/13/25 10:32> Vital Signs Vital Signs - 24 hr 07/12/25 11:00 07/12/25 11:30 07/12/25 11:52 Temperature Pulse Rate 82 76 Respiratory Rate 78 H 20 Blood Pressure 142/80 H Pulse Oximetry 96 96 96 Oxygen Delivery BiPAP BiPAP Oxygen Flow Rate Fraction of Inspired Oxygen 30 07/12/25 12:00 07/12/25 12:00 07/12/25 13:00 Temperature Pulse Rate 69 82 79 Respiratory Rate 18 19 Blood Pressure 137/73 121/92 H Pulse Oximetry 96 97 Oxygen Delivery Oxygen Flow Rate Fraction of Inspired Oxygen 07/12/25 13:30 07/12/25 13:30 07/12/25 13:44 Temperature Pulse Rate 76 76 74 Respiratory Rate 20 20 20 Blood Pressure Pulse Oximetry 95 Oxygen Delivery BiPAP Oxygen Flow Rate Fraction of Inspired Oxygen 07/12/25 14:00 07/12/25 14:00 07/12/25 15:00 Temperature Pulse Rate 78 80 77 Respiratory Rate 19 20 Blood Pressure 105/57 L 121/57 L Pulse Oximetry 97 100 Oxygen Delivery Oxygen Flow Rate Fraction of Inspired Oxygen 07/12/25 16:00 07/12/25 16:00 07/12/25 16:00 Temperature 98 F Pulse Rate 79 76 Respiratory Rate 16 Blood Pressure 105/55 L Pulse Oximetry 92 94 Oxygen Delivery High Flow Therapy with Na Oxygen Flow Rate 45 Fraction of Inspired Oxygen 45 07/12/25 17:00 07/12/25 17:51 07/12/25 17:51 Temperature 98.3 F Pulse Rate 82 87 73 Respiratory Rate 18 24 H Blood Pressure 128/78 118/66 Pulse Oximetry 100 98 Oxygen Delivery Oxygen Flow Rate Fraction of Inspired Oxygen 07/12/25 19:00 07/12/25 20:00 07/12/25 20:00 Temperature 98.9 F Pulse Rate 96 94 101 H Respiratory Rate 22 H Blood Pressure 113/71 Pulse Oximetry 100 95 Oxygen Delivery High Flow Therapy with Na Oxygen Flow Rate 45 Fraction of Inspired Oxygen 45 07/12/25 20:00 07/12/25 20:06 07/12/25 20:07 Temperature 98.9 F Pulse Rate 101 H 80 94 Respiratory Rate 30 H 22 H 17 Blood Pressure 111/69 Pulse Oximetry 98 99 Oxygen Delivery High Flow Therapy with Na Oxygen Flow Rate 45 Fraction of Inspired Oxygen 45 07/12/25 20:16 07/12/25 21:00 07/12/25 22:00 Temperature Pulse Rate 94 95 106 H Respiratory Rate 25 H 26 H Blood Pressure 111/69 Pulse Oximetry 97 Oxygen Delivery Oxygen Flow Rate Fraction of Inspired Oxygen 07/12/25 22:00 07/12/25 23:00 07/12/25 23:41 Temperature 98.8 F Pulse Rate 84 102 H 95 Respiratory Rate 22 H 20 23 H Blood Pressure 131/70 136/69 Pulse Oximetry 97 99 96 Oxygen Delivery Oxygen Flow Rate Fraction of Inspired Oxygen 07/13/25 00:00 07/13/25 00:00 07/13/25 00:00 Temperature 98.8 F Pulse Rate 81 102 H 102 H Respiratory Rate 20 Blood Pressure 153/118 H Pulse Oximetry 98 99 Oxygen Delivery High Flow Therapy with Na Oxygen Flow Rate 45 Fraction of Inspired Oxygen 45 07/13/25 01:00 07/13/25 02:00 07/13/25 02:00 Temperature 98.6 F Pulse Rate 92 87 103 H Respiratory Rate 20 20 Blood Pressure 126/55 L 119/78 Pulse Oximetry 95 97 Oxygen Delivery Oxygen Flow Rate Fraction of Inspired Oxygen 07/13/25 02:06 07/13/25 02:07 07/13/25 02:44 Temperature 98.8 F Pulse Rate 81 110 H 91 Respiratory Rate 20 20 20 Blood Pressure 119/78 Pulse Oximetry 96 93 Oxygen Delivery Oxygen Flow Rate Fraction of Inspired Oxygen 07/13/25 04:00 07/13/25 04:00 07/13/25 04:00 Temperature 98.8 F Pulse Rate 106 H 85 90 Respiratory Rate 20 Blood Pressure 133/76 Pulse Oximetry 97 96 Oxygen Delivery High Flow Therapy with Na Oxygen Flow Rate 45 Fraction of Inspired Oxygen 45 07/13/25 04:31 07/13/25 05:00 07/13/25 06:00 Temperature Pulse Rate 107 H 76 96 Respiratory Rate 21 H 18 Blood Pressure 113/76 Pulse Oximetry 97 95 Oxygen Delivery Oxygen Flow Rate Fraction of Inspired Oxygen 07/13/25 06:00 07/13/25 07:00 07/13/25 08:00 Temperature 98.6 F 99.1 F Pulse Rate 96 103 H 97 Respiratory Rate 20 20 21 H Blood Pressure 138/76 163/85 H 133/74 Pulse Oximetry 92 95 91 Oxygen Delivery Oxygen Flow Rate Fraction of Inspired Oxygen 07/13/25 08:00 07/13/25 08:00 07/13/25 08:14 Temperature Pulse Rate 102 H 126 H 106 H Respiratory Rate 20 Blood Pressure Pulse Oximetry 91 95 Oxygen Delivery High Flow Therapy with Na High Flow Therapy with Na Oxygen Flow Rate 35 45 Fraction of Inspired Oxygen 45 45 07/13/25 08:14 07/13/25 08:28 07/13/25 09:00 Temperature Pulse Rate 106 H 102 H 94 Respiratory Rate 20 20 23 H Blood Pressure 139/77 Pulse Oximetry 91 Oxygen Delivery Oxygen Flow Rate Fraction of Inspired Oxygen 07/13/25 09:07 07/13/25 09:15 07/13/25 10:00 Temperature Pulse Rate 101 H 102 H 95 Respiratory Rate 20 20 Blood Pressure Pulse Oximetry 93 88 L Oxygen Delivery High Flow Therapy with Na High Flow Therapy with Na Oxygen Flow Rate 35 35 Fraction of Inspired Oxygen 45 45 <Gerson E. Ochoa, DO - Last Filed: 07/13/25 10:32> Exam Const: General: no acute distress, alert and awake <Gerson E. Ochoa, DO - Last Filed: 07/13/25 10:32> HENMT: Head: normocephalic and atraumatic <Gerson E. Ochoa, DO - Last Filed: 07/13/25 10:32> Eyes: EOM: EOMs intact bilaterally <Gerson E. Ochoa, DO - Last Filed: 07/13/25 10:32> Neck: Other: C collar in place <Gerson E. Ochoa, DO - Last Filed: 07/13/25 10:32> Resp: Other: symmetric expansion, on vapotherm 45% FiO2 @ 35 L <Gerson E. Ochoa, DO - Last Filed: 07/13/25 10:32> Cardio: Other: intermittently tachycardic, otherwise hemodynamically stable <Gerson E. Ochoa, DO - Last Filed: 07/13/25 10:32> GI: Other: soft, TTP in mid abdomen, distended, nonperitoneal <Gerson E. Ochoa, DO - Last Filed: 07/13/25 10:32> Extrem: Other: wound on left forearm, moves all extremities <Gerson E. Ochoa, DO - Last Filed: 07/13/25 10:32> Psych: Speech and movement: Normal speech and movement present <Gerson E. Ochoa, DO - Last Filed: 07/13/25 10:32> Affect: normal affect <Gerson E. Ochoa, DO - Last Filed: 07/13/25 10:32> Attitude: cooperative <Gerson E. Ochoa, DO - Last Filed: 07/13/25 10:32> Results Labs Result diagrams: 07/13/25 03:35 07/13/25 03:35 <Gerson Ochoa, DO - Last Filed: 07/13/25 10:32> Labs: Abnormal lab results 07/12/25 07/12/25 07/12/25 Range/Units 11:43 16:08 20:36 RBC (4.2-5.4) M/mm3 Hgb (12.0-15.0) g/dL Hct (37.0-47.0) % MCHC (32-36) g/dl RDW (11.5-14.5) % Immature Gran % (Auto) (0-0.5) % Neut % (Auto) (45.5-73.1) % Lymph % (Auto) (18.3-44.2) % Baso % (Auto) (0.2-1.2) % Lymph # (Auto) (0.9-3.2) K/mm3 [place] # (Auto) (0.1-0.6) K/mm3 Abs Immat Gran (auto) (0.00-0.031) K/mm3 Absolute Neuts (auto) (1.3-6.7) K/mm3 Sodium (137-145) mmol/L Carbon Dioxide (22-30) mmol/L Anion Gap (4-12) mmol/L BUN (7-17) mg/dL Glucose (65-110) mg/dL POC Capillary Glucose 187 H 177 H 168 H (65-105) mg/dl Alkaline Phosphatase (38-126) U/L Total Protein (6.3-8.2) g/dL Albumin (3.5-5.1) g/dL 07/13/25 07/13/25 07/13/25 Range/Units 01:06 03:35 08:22 RBC 3.39 L (4.2-5.4) M/mm3 Hgb 9.5 L (12.0-15.0) g/dL Hct 32.3 L (37.0-47.0) % MCHC 29.4 L (32-36) g/dl RDW 20.5 H (11.5-14.5) % Immature Gran % (Auto) 0.9 H (0-0.5) % Neut % (Auto) 85.5 H (45.5-73.1) % Lymph % (Auto) 5.5 L (18.3-44.2) % Baso % (Auto) 0.1 L (0.2-1.2) % Lymph # (Auto) 0.54 L (0.9-3.2) K/mm3 [place] # (Auto) 0.8 H (0.1-0.6) K/mm3 Abs Immat Gran (auto) 0.09 H (0.00-0.031) K/mm3 Absolute Neuts (auto) 8.5 H (1.3-6.7) K/mm3 Sodium 132 L (137-145) mmol/L Carbon Dioxide 32 H (22-30) mmol/L Anion Gap 1 L (4-12) mmol/L BUN 36 H (7-17) mg/dL Glucose 188 H (65-110) mg/dL POC Capillary Glucose 198 H 197 H (65-105) mg/dl Alkaline Phosphatase 215 H (38-126) U/L Total Protein 5.6 L (6.3-8.2) g/dL Albumin 3.2 L (3.5-5.1) g/dL Diabetes panel 07/13/25 Range/Units 03:35 Sodium 132 L (137-145) mmol/L Potassium 3.7 (3.4-5.0) mmol/L Chloride 99 (98-107) mmol/L Carbon Dioxide 32 H (22-30) mmol/L BUN 36 H (7-17) mg/dL Creatinine 0.86 (0.7-1.0) mg/dL Glucose 188 H (65-110) mg/dL Calcium 8.5 (8.4-10.2) mg/dL AST 26 (14-36) U/L ALT 22 (6-35) U/L Alkaline Phosphatase 215 H (38-126) U/L Total Protein 5.6 L (6.3-8.2) g/dL Albumin 3.2 L (3.5-5.1) g/dL Calcium panel 07/13/25 Range/Units 03:35 Calcium 8.5 (8.4-10.2) mg/dL Phosphorus 2.9 (2.5-4.5) mg/dL Albumin 3.2 L (3.5-5.1) g/dL Pituitary panel 07/13/25 Range/Units 03:35 Sodium 132 L (137-145) mmol/L Potassium 3.7 (3.4-5.0) mmol/L Chloride 99 (98-107) mmol/L Carbon Dioxide 32 H (22-30) mmol/L BUN 36 H (7-17) mg/dL Creatinine 0.86 (0.7-1.0) mg/dL Glucose 188 H (65-110) mg/dL Calcium 8.5 (8.4-10.2) mg/dL Adrenal panel 07/13/25 Range/Units 03:35 Sodium 132 L (137-145) mmol/L Potassium 3.7 (3.4-5.0) mmol/L Chloride 99 (98-107) mmol/L Carbon Dioxide 32 H (22-30) mmol/L BUN 36 H (7-17) mg/dL Creatinine 0.86 (0.7-1.0) mg/dL Glucose 188 H (65-110) mg/dL Calcium 8.5 (8.4-10.2) mg/dL Total Bilirubin 0.5 (0.2-1.3) mg/dL AST 26 (14-36) U/L ALT 22 (6-35) U/L Alkaline Phosphatase 215 H (38-126) U/L Total Protein 5.6 L (6.3-8.2) g/dL Albumin 3.2 L (3.5-5.1) g/dL All other labs normal. <Gerson Ochoa DO - Last Filed: 07/13/25 10:32> Attestation Supervising Provider Attestation Patient seen and examined. I discussed the patient with Gerson Ochoa D.O. PGY III. I agree with his documentation as noted above. I provided a substantive portion of the care of this patient. I personally performed the medical decision making and much of the history and exam for this encounter. We will get a CT scan abd/pelvis to evaluate for obstruction and hopefully have NG tube placed under fluoroscopy while in x-ray. Discussed with Dr. Allen, Payroll Benefits Clerk as well. Diagnosis right now is adynamic ileus. <Dick Shahid MD - Last Filed: 07/13/25 12:13>
--- NOTE | 2025-07-13 10:50 | PCFNICU ---
ICU Rounding Note: Pt current nutrition is NPO. Last recorded weight is 81 kg, down from 84.9 kg on admit. Bowel Motility: Last reported BM smear 07/09 Labs Reviewed: Na 132, BUN 36, Glu 188, Alb 3.2 Meds Noted: Lasix, Vit D, Protonix, Lantus, NovoLog. Skin: Stage III-sacrum. Additional Notes: Patient remains NPO. Refused NGT 07/12. PICC line placed today. CT planned. No plans for nutrition at this time. Following daily in ICU rounds. Monitoring intakes, weights, labs, supplement tolerance, skin, plan of care every 3 days.
--- NOTE | 2025-07-13 11:20 | P.PNIM_ITS ---
Progress Note: A&P Assessment and Plan (1) Sarcoid: Code(s): D86.9 - Sarcoidosis, unspecified Status: Acute (2) Ileus: Code(s): K56.7 - Ileus, unspecified Status: Acute Plan Ileus versus SBO -KUB concerning for worsening dilated loops of bowel -appreciate GI consult quadrant condition NG tube decompression -appreciate general surgical consultation: Recommendation for abdominal CT scan -abdominal CT scan with contrast ordered -IR may need to place NG tube for decompression Multifocal atrial tachycardia -patient has paroxysmal atrial fibrillation on Xarelto and rate control with sotalol -currently patient appears to have atrial tachycardia heart rate fluctuating from 90 to 140s -appreciate Cardiology consultation -history of paroxysmal atrial fibrillation -may need to give p.r.n. 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 -appreciate pulmonology management -antibiotics: Vancomycin/cefepime/doxycycline -MRSA nares positive -steroids: Solu-Medrol 20 mg IV push daily -holding Lasix Chronic conditions -type 2 diabetes: Monitor glucose, glargine 10 units daily, sliding scale insulin -polymyalgia rheumatica: -pulmonary hypertension: -C-collar in place -hyperlipidemia: Pravastatin -RLS: mirapex, Robaxin -essential hypertension: Losartan -supplements: D3 Diet: NPO DVT prophylaxis: SCDs, home on Xarelto, Lovenox for now GI prophylaxis: Protonix Code status: Full code Disposition: ICU, SNF>2 days Time Spent With Patient Time: 35 minutes Subjective Date/time seen: 07/13/25 11:20 Interval history: Patient seen examined. She had a complicated hospitalization. Plan for today is CT abdomen pelvis to evaluate for SBO versus ileus. There were having difficulty placing NG tube was we may need IR to help place a NG-tube up for decompression. General surgery team now following. Patient has an atrial tachycardia with heart rate fluctuating 90s-140s. Patient has been updated bedside. She is continuing prednisone for sarcoidosis. Patient denies fever, chills, nausea vomiting diarrhea. Review of Systems Review of Systems: 10 point ROS complete, negative other th an what is specified in HPI. Exam Narrative: - GENERAL: Pleasant elderly woman in No acute distress. Well-nourished. - EYES: EOMI. Anicteric. - HENT: Moist mucous membranes. C-colla r in place - LUNGS: Clear anteriorly, diminished, on heated high-flow oxygen - CARDIOVASCULAR: Tachycardic - ABDOMEN: Soft, distended, nontender, h ypoactive - EXTREMITIES: No edema. Peripheral puls es 2+. - NEUROLOGIC: No focal neurological defi cits. CN II-XII grossly intact. - PSYCHIATRIC: Awake, Alert and oriented x 3. Appropriate mood and affect. Objective Data Vital Signs Vital Signs: Vital Signs - 24 hr 07/12/25 11:30 07/12/25 11:52 07/12/25 12:00 Temperature Pulse Rate 76 69 Respiratory Rate 20 Blood Pressure Pulse Oximetry 96 96 Oxygen Delivery BiPAP BiPAP Oxygen Flow Rate Fraction of Inspired Oxygen 30 07/12/25 12:00 07/12/25 13:00 07/12/25 13:30 Temperature Pulse Rate 82 79 76 Respiratory Rate 18 19 20 Blood Pressure 137/73 121/92 H Pulse Oximetry 96 97 Oxygen Delivery Oxygen Flow Rate Fraction of Inspired Oxygen 07/12/25 13:30 07/12/25 13:44 07/12/25 14:00 Temperature Pulse Rate 76 74 78 Respiratory Rate 20 20 19 Blood Pressure 105/57 L Pulse Oximetry 95 97 Oxygen Delivery BiPAP Oxygen Flow Rate Fraction of Inspired Oxygen 07/12/25 14:00 07/12/25 15:00 07/12/25 16:00 Temperature 36.6 C Pulse Rate 80 77 79 Respiratory Rate 20 16 Blood Pressure 121/57 L 105/55 L Pulse Oximetry 100 92 Oxygen Delivery Oxygen Flow Rate Fraction of Inspired Oxygen 07/12/25 16:00 07/12/25 16:00 07/12/25 17:00 Temperature 36.8 C Pulse Rate 76 82 Respiratory Rate 18 Blood Pressure 128/78 Pulse Oximetry 94 100 Oxygen Delivery High Flow Therapy with Na Oxygen Flow Rate 45 Fraction of Inspired Oxygen 45 07/12/25 17:51 07/12/25 17:51 07/12/25 19:00 Temperature 37.2 C Pulse Rate 87 73 96 Respiratory Rate 24 H 22 H Blood Pressure 118/66 113/71 Pulse Oximetry 98 100 Oxygen Delivery Oxygen Flow Rate Fraction of Inspired Oxygen 07/12/25 20:00 07/12/25 20:00 07/12/25 20:00 Temperature 37.2 C Pulse Rate 94 101 H 101 H Respiratory Rate 30 H Blood Pressure 111/69 Pulse Oximetry 95 98 Oxygen Delivery High Flow Therapy with Na Oxygen Flow Rate 45 Fraction of Inspired Oxygen 45 07/12/25 20:06 07/12/25 20:07 07/12/25 20:16 Temperature Pulse Rate 80 94 94 Respiratory Rate 22 H 17 25 H Blood Pressure Pulse Oximetry 99 Oxygen Delivery High Flow Therapy with Na Oxygen Flow Rate 45 Fraction of Inspired Oxygen 45 07/12/25 21:00 07/12/25 22:00 07/12/25 22:00 Temperature 37.1 C Pulse Rate 95 106 H 84 Respiratory Rate 26 H 22 H Blood Pressure 111/69 131/70 Pulse Oximetry 97 97 Oxygen Delivery Oxygen Flow Rate Fraction of Inspired Oxygen 07/12/25 23:00 07/12/25 23:41 07/13/25 00:00 Temperature Pulse Rate 102 H 95 81 Respiratory Rate 20 23 H Blood Pressure 136/69 Pulse Oximetry 99 96 98 Oxygen Delivery High Flow Therapy with Na Oxygen Flow Rate 45 Fraction of Inspired Oxygen 45 07/13/25 00:00 07/13/25 00:00 07/13/25 01:00 Temperature 37.1 C 37.0 C Pulse Rate 102 H 102 H 92 Respiratory Rate 20 20 Blood Pressure 153/118 H 126/55 L Pulse Oximetry 99 95 Oxygen Delivery Oxygen Flow Rate Fraction of Inspired Oxygen 07/13/25 02:00 07/13/25 02:00 07/13/25 02:06 Temperature Pulse Rate 87 103 H 81 Respiratory Rate 20 20 Blood Pressure 119/78 Pulse Oximetry 97 Oxygen Delivery Oxygen Flow Rate Fraction of Inspired Oxygen 07/13/25 02:07 07/13/25 02:44 07/13/25 04:00 Temperature 37.1 C Pulse Rate 110 H 91 106 H Respiratory Rate 20 20 Blood Pressure 119/78 Pulse Oximetry 96 93 Oxygen Delivery Oxygen Flow Rate Fraction of Inspired Oxygen 07/13/25 04:00 07/13/25 04:00 07/13/25 04:31 Temperature 37.1 C Pulse Rate 85 90 107 H Respiratory Rate 20 21 H Blood Pressure 133/76 Pulse Oximetry 97 96 97 Oxygen Delivery High Flow Therapy with Na Oxygen Flow Rate 45 Fraction of Inspired Oxygen 45 07/13/25 05:00 07/13/25 06:00 07/13/25 06:00 Temperature 37.0 C Pulse Rate 76 96 96 Respiratory Rate 18 20 Blood Pressure 113/76 138/76 Pulse Oximetry 95 92 Oxygen Delivery Oxygen Flow Rate Fraction of Inspired Oxygen 07/13/25 07:00 07/13/25 08:00 07/13/25 08:00 Temperature 37.3 C Pulse Rate 103 H 97 102 H Respiratory Rate 20 21 H Blood Pressure 163/85 H 133/74 Pulse Oximetry 95 91 91 Oxygen Delivery High Flow Therapy with Na Oxygen Flow Rate 35 Fraction of Inspired Oxygen 45 07/13/25 08:00 07/13/25 08:14 07/13/25 08:14 Temperature Pulse Rate 126 H 106 H 106 H Respiratory Rate 20 20 Blood Pressure Pulse Oximetry 95 Oxygen Delivery High Flow Therapy with Na Oxygen Flow Rate 45 Fraction of Inspired Oxygen 45 07/13/25 08:28 07/13/25 09:00 07/13/25 09:07 Temperature Pulse Rate 102 H 94 101 H Respiratory Rate 20 23 H 20 Blood Pressure 139/77 Pulse Oximetry 91 93 Oxygen Delivery High Flow Therapy with Na Oxygen Flow Rate 35 Fraction of Inspired Oxygen 45 07/13/25 09:15 07/13/25 10:00 07/13/25 10:00 Temperature Pulse Rate 102 H 95 97 Respiratory Rate 20 25 H Blood Pressure 126/77 Pulse Oximetry 88 L 97 Oxygen Delivery High Flow Therapy with Na Oxygen Flow Rate 35 Fraction of Inspired Oxygen 45 07/13/25 11:00 Temperature 37.2 C Pulse Rate 97 Respiratory Rate 21 H Blood Pressure 139/71 Pulse Oximetry 99 Oxygen Delivery Oxygen Flow Rate Fraction of Inspired Oxygen Intake/Output Intake/Output: Intake & Output 07/10/25 07/11/25 07/12/25 07/13/25 23:59 23:59 23:59 23:59 Intake Total 1217.4 1859.2 300 Output Total 942 612 6957 300 Balance 807.4 1434.2 -1800 -300 Meds/Results Medications: Active Medications Generic Name Dose Route Start Last Admin Trade Name Freq PRN Reason Stop Dose Admin Acetaminophen 650 mg 07/07/25 08:10 07/11/25 20:25 Acetaminophen 325 Mg Tablet PO 650 mg Q4H PRN Administration Mild Pain (1-3) or Fever Acetaminophen 650 mg 07/10/25 17:36 07/10/25 21:18 Acetaminophen 650 Mg Suppository RECTAL 650 mg Q6H PRN Administration Fever Dextrose 12.5 gm 07/10/25 15:08 Dextrose 50% 25 Gm/50 Ml Syringe IV PUSH PRN PRN Hypoglycemia Protocol Enoxaparin Sodium 40 mg 07/08/25 09:00 07/13/25 08:27 Enoxaparin 40 Mg/0.4 Ml Syringe SUB-Q 40 mg DAILY IVONE Administration Furosemide 40 mg 07/08/25 09:00 07/10/25 11:01 Furosemide Inj 40 Mg/4 Ml Vial IV PUSH Not Given On Hold: 07/10/25 15:06 DAILY IVONE Glucagon 1 mg 07/10/25 15:08 Glucagon For Inj 1 Mg Vial IM PRN PRN Hypoglycemia Protocol Glucose 15 gm 07/10/25 15:08 Glucose Oral Gel 15 Gm Of Glucse In 37.5 Gm Tube PO PRN PRN Hypoglycemia Protocol Guaifenesin 1,200 mg 07/07/25 21:00 07/10/25 11:01 Guaifenesin 12 Hr 600 Mg Tabcr PO Not Given On Hold: 07/10/25 15:02 Q12HR IVONE Dextrose 1,000 mls @ 100 mls/hr 07/10/25 15:08 Dextrose 5% 1,000 Ml IVPB PRN PRN Hypoglycemia Protocol Doxycycline Hyclate 100 mg/ 100 mls @ 100 mls/hr 07/10/25 21:00 07/13/25 08:29 Sodium Chloride IVPB 100 mls/hr Q12H IVONE Administration Cefepime HCl 2 gm/ Sodium 50 mls @ 100 mls/hr 07/11/25 10:20 07/13/25 08:30 Chloride IVPB 100 mls/hr Q12HR IVONE Administration Vancomycin HCl 1,500 mg in 500 mls @ 250 mls/hr 07/13/25 09:00 07/13/25 09:10 Vancomycin 1,500 Mg/Ns 500 Ml IVPB 250 mls/hr Q18H IVONE Administration Potassium Chloride 100 mls @ 25 mls/hr 07/13/25 08:12 07/13/25 09:35 Kcl 40 Meq/Water 100 Ml IVPB 07/13/25 12:11 25 mls/hr ONCE ONE Administration Insulin Aspart 3 - 6 units 07/10/25 17:00 07/13/25 08:25 Insulin Aspart (*Bkc) 100 Units/Ml SUB-Q Not Given Q4HR IVONE Protocol Insulin Glargine 10 units 07/12/25 09:00 07/12/25 16:10 Insulin Glargine (*Bkc) 100 Units/Ml SUB-Q Not Given On Hold: 07/13/25 08:23 DAILY IVONE Ipratropium [place] 0.5 mg 07/10/25 15:30 07/13/25 08:14 Ipratropium Br 0.02% Inh Soln 0.5 Mg/2.5 Ml Vial INHALATION 0.5 mg Q6HRT IVONE Administration Levalbuterol HCl 0.63 mg 07/10/25 15:26 07/13/25 08:14 Levalbuterol Neb 1.25 Mg/3 Ml INHALATION 0.63 mg Q6HRT IVONE Administration Loperamide HCl 2 mg 07/07/25 14:57 Loperamide Hcl 2 Mg Capsule PO On Hold: 07/10/25 15:03 PRN PRN Diarrhea Losartan Potassium 25 mg 07/08/25 09:00 07/10/25 11:01 Losartan Potassium 25 Mg Tablet PO Not Given On Hold: 07/10/25 15:04 DAILY IVONE Methocarbamol 500 mg 07/07/25 14:53 07/09/25 08:32 Methocarbamol 500 Mg Tablet PO 500 mg On Hold: 07/10/25 15:03 Q8H PRN Administration muscle spasms Methylprednisolone Sodium Succinate 20 mg 07/14/25 09:00 Methylprednisolone Sod Succ 40 Mg Vial IV PUSH 07/14/25 09:01 DAILY IVONE Pantoprazole Sodium 40 mg 07/08/25 09:00 07/10/25 11:02 Pantoprazole 40 Mg Tablet PO Not Given On Hold: 07/10/25 15:05 QAM IVONE Pantoprazole Sodium 40 mg 07/10/25 15:45 07/13/25 08:27 Pantoprazole Sodium Iv 40 Mg Vial IV PUSH 40 mg QAM IVONE Administration Pramipexole Dihydrochloride 0.5 mg 07/07/25 21:00 07/09/25 20:52 Pramipexole 0.5 Mg Tablet PO 0.5 mg On Hold: 07/10/25 15:03 HS IVONE Administration Pravastatin Sodium 10 mg 07/08/25 09:00 07/10/25 11:02 Pravastatin Sodium 10 Mg Tablet BY MOUTH Not Given On Hold: 07/10/25 15:05 DAILY IVONE Sodium Chloride 20 ml 07/10/25 20:33 Central Line Flush IV PUSH PRN PRN after blood draws Sodium Chloride 10 ml 07/13/25 14:00 Central Line Flush IV PUSH Q8HR [facility] Sodium Chloride 10 ml 07/13/25 08:09 Central Line Flush IV PUSH PRN PRN with TPN bag changes Sodium Chloride 20 ml 07/13/25 08:09 Central Line Flush IV PUSH PRN PRN after blood draws Sotalol HCl 80 mg 07/11/25 10:25 07/12/25 08:45 Sotalol Hcl 80 Mg Tablet PO Not Given On Hold: 07/12/25 13:42 Q12HR [facility] Trimethobenzamide HCl 200 mg 07/07/25 14:56 07/12/25 04:26 Trimethobenzamide Hcl 200 Mg/2 Ml Vial IM 200 mg Q6H PRN Administration Nausea And Vomiting Vitamin D 25 mcg 07/08/25 09:00 07/10/25 11:01 Cholecalciferol (Vitamin D3) 25 Mcg (1,000 Units) Tablet PO Not Given On Hold: 07/10/25 15:02 DAILY [facility] Radiology Results: ITS Impressions Cervical Spine CT 07/07/25 06:30 IMPRESSION: HEAD: 1. No acute intracranial findings. 2. Bilateral mastoiditis. C-SPINE: 1. No acute fracture. 2. Ill-defined fluid and postoperative changes posterior to upper cervical spine. 3. Extensive bilateral upper lung airspace disease, and left pleural effusion. Chest/Abdomen/Pelvis CT 07/07/25 07:13 IMPRESSION: 1. Diffuse lung disease, likely a combination of pneumonia in the upper lobes and left lower lobe and mild pulmonary edema. 2. Small pleural effusions. 3. Colitis involving the rectosigmoid. Head CT 07/10/25 15:36 Impression: 1.No acute intracranial abnormality. Abdomen X-Ray 07/13/25 07:53 IMPRESSION: Multiple loops of dilated small bowel could be associated with ileus; correlate clinically to exclude obstruction. Chest X-Ray 07/13/25 08:21 Impression: Mild CHF Labs Labs: Laboratory Results - last 24 hr 07/12/25 07/12/25 07/12/25 11:43 16:08 20:36 WBC RBC Hgb Hct MCV MCH MCHC RDW Plt Count MPV Immature Gran % (Auto) Neut % (Auto) Lymph % (Auto) [place] % (Auto) Eos % (Auto) Baso % (Auto) Lymph # (Auto) [place] # (Auto) Eos # (Auto) Baso # (Auto) Abs Immat Gran (auto) Absolute Neuts (auto) Absolute Nucleated RBC Band Neutrophils % Nucleated RBC % Platelet Estimate Ovalocytes [place] Cells Schistocytes Sodium Potassium Chloride Carbon Dioxide Anion Gap BUN Creatinine Estim Creat Clear Calc Estimated GFR Glucose POC Capillary Glucose 187 H 177 H 168 H Lactic Acid Calcium Phosphorus Magnesium Total Bilirubin AST ALT Alkaline Phosphatase Total Protein Albumin 07/13/25 07/13/25 07/13/25 01:06 03:35 08:22 WBC 9.9 RBC 3.39 L Hgb 9.5 L Hct 32.3 L MCV 95.3 MCH 28.0 MCHC 29.4 L RDW 20.5 H Plt Count 282 MPV 10.3 Immature Gran % (Auto) 0.9 H Neut % (Auto) 85.5 H Lymph % (Auto) 5.5 L [place] % (Auto) 8.0 Eos % (Auto) 0.0 Baso % (Auto) 0.1 L Lymph # (Auto) 0.54 L [place] # (Auto) 0.8 H Eos # (Auto) 0.0 Baso # (Auto) 0.0 Abs Immat Gran (auto) 0.09 H Absolute Neuts (auto) 8.5 H Absolute Nucleated RBC 0.000 Band Neutrophils % Not Reportable Nucleated RBC % 0.0 Platelet Estimate Adequate Ovalocytes 1+ [place] Cells Occasional Schistocytes None seen Sodium 132 L Potassium 3.7 Chloride 99 Carbon Dioxide 32 H Anion Gap 1 L BUN 36 H Creatinine 0.86 Estim Creat Clear Calc 48 Estimated GFR > 60 Glucose 188 H POC Capillary Glucose 198 H 197 H Lactic Acid 1.4 Calcium 8.5 Phosphorus 2.9 Magnesium 2.2 Total Bilirubin 0.5 AST 26 ALT 22 Alkaline Phosphatase 215 H Total Protein 5.6 L Albumin 3.2 L
[2025-07-13] MEDS: INSULIN ASPART (*BKC) 100 UNITS/ML SUB-Q ×2 (12:00→17:09)
--- NOTE | 2025-07-13 12:57 | PCOTNOTE ---
Attempted to see Patient for OT treatment session. Patient unavailable, going for a CT scan and then a NG tube placement. Patient has had a decline in medical status, when speaking with RN, Patient is having increased heart rates in supine with little to no activity. Patient at this time can not tolerate bed mobility or functional mobility. Will discharge at this time, and await continuation orders when medically able.
[2025-07-13] MEDS: CENTRAL LINE FLUSH 10 ML IV PUSH ×2 (13:03→20:15)
--- NOTE | 2025-07-13 14:23 | WPDGIPROGNO ---
Progress Note: A&P Assessment and Plan (1) Ileus: Code(s): K56.7 - Ileus, unspecified Status: Acute Assessment and Plan: CT scan no sbo, not obstructive gas pattern will attempt NGT medical support (2) Acute on chronic hypoxic respiratory failure: Code(s): J96.21 - Acute and chronic respiratory failure with hypoxia Status: Acute Assessment and Plan: by application development liaison (3) Pneumonia: Code(s): J18.9 - Pneumonia, unspecified organism Status: Acute (4) Chronic obstructive pulmonary disease, unspecified: Code(s): J44.9 - Chronic obstructive pulmonary disease, unspecified Status: Acute (5) Sarcoid: Code(s): D86.9 - Sarcoidosis, unspecified Status: Acute Subjective Date/time seen: 07/13/25 14:23 Interval history: no changes, radiologist will try to place NGT Review of Systems Review of Systems: All systems reviewed & are unremarkable except as noted in HPI and below Exam Const: General: no acute distress, alert and awake HENMT: Head: normocephalic and atraumatic Eyes: EOM: EOMs intact bilaterally Neck: Other: C collar in place Resp: Effort & Inspection: normal respiratory effort Cardio: Rate: regular rate GI: Inspection: distended Other: soft, TTP in mid abdomen, distended, nonperitoneal Extrem: Other: wound on left forearm, moves all extremities Psych: Speech and movement: Normal speech and movement present Affect: normal affect Attitude: cooperative Objective Data Vital Signs Vital Signs: Vital Signs - 24 hr 07/12/25 15:00 07/12/25 16:00 07/12/25 16:00 Temperature 98 F Pulse Rate 77 79 Respiratory Rate 20 16 Blood Pressure 121/57 L 105/55 L Pulse Oximetry 100 92 94 Oxygen Delivery High Flow Therapy with Na Oxygen Flow Rate 45 Fraction of Inspired Oxygen 45 07/12/25 16:00 07/12/25 17:00 07/12/25 17:51 Temperature 98.3 F Pulse Rate 76 82 87 Respiratory Rate 18 Blood Pressure 128/78 Pulse Oximetry 100 Oxygen Delivery Oxygen Flow Rate Fraction of Inspired Oxygen 07/12/25 17:51 07/12/25 19:00 07/12/25 20:00 Temperature 98.9 F Pulse Rate 73 96 94 Respiratory Rate 24 H 22 H Blood Pressure 118/66 113/71 Pulse Oximetry 98 100 95 Oxygen Delivery High Flow Therapy with Na Oxygen Flow Rate 45 Fraction of Inspired Oxygen 45 07/12/25 20:00 07/12/25 20:00 07/12/25 20:06 Temperature 98.9 F Pulse Rate 101 H 101 H 80 Respiratory Rate 30 H 22 H Blood Pressure 111/69 Pulse Oximetry 98 Oxygen Delivery Oxygen Flow Rate Fraction of Inspired Oxygen 07/12/25 20:07 07/12/25 20:16 07/12/25 21:00 Temperature Pulse Rate 94 94 95 Respiratory Rate 17 25 H 26 H Blood Pressure 111/69 Pulse Oximetry 99 97 Oxygen Delivery High Flow Therapy with Na Oxygen Flow Rate 45 Fraction of Inspired Oxygen 45 07/12/25 22:00 07/12/25 22:00 07/12/25 23:00 Temperature 98.8 F Pulse Rate 106 H 84 102 H Respiratory Rate 22 H 20 Blood Pressure 131/70 136/69 Pulse Oximetry 97 99 Oxygen Delivery Oxygen Flow Rate Fraction of Inspired Oxygen 07/12/25 23:41 07/13/25 00:00 07/13/25 00:00 Temperature Pulse Rate 95 81 102 H Respiratory Rate 23 H Blood Pressure Pulse Oximetry 96 98 Oxygen Delivery High Flow Therapy with Na Oxygen Flow Rate 45 Fraction of Inspired Oxygen 45 07/13/25 00:00 07/13/25 01:00 07/13/25 02:00 Temperature 98.8 F 98.6 F Pulse Rate 102 H 92 87 Respiratory Rate 20 20 Blood Pressure 153/118 H 126/55 L Pulse Oximetry 99 95 Oxygen Delivery Oxygen Flow Rate Fraction of Inspired Oxygen 07/13/25 02:00 07/13/25 02:06 07/13/25 02:07 Temperature Pulse Rate 103 H 81 110 H Respiratory Rate 20 20 20 Blood Pressure 119/78 Pulse Oximetry 97 96 Oxygen Delivery Oxygen Flow Rate Fraction of Inspired Oxygen 07/13/25 02:44 07/13/25 04:00 07/13/25 04:00 Temperature 98.8 F Pulse Rate 91 106 H 85 Respiratory Rate 20 Blood Pressure 119/78 Pulse Oximetry 93 97 Oxygen Delivery High Flow Therapy with Na Oxygen Flow Rate 45 Fraction of Inspired Oxygen 45 07/13/25 04:00 07/13/25 04:31 07/13/25 05:00 Temperature 98.8 F Pulse Rate 90 107 H 76 Respiratory Rate 20 21 H 18 Blood Pressure 133/76 113/76 Pulse Oximetry 96 97 95 Oxygen Delivery Oxygen Flow Rate Fraction of Inspired Oxygen 07/13/25 06:00 07/13/25 06:00 07/13/25 07:00 Temperature 98.6 F Pulse Rate 96 96 103 H Respiratory Rate 20 20 Blood Pressure 138/76 163/85 H Pulse Oximetry 92 95 Oxygen Delivery Oxygen Flow Rate Fraction of Inspired Oxygen 07/13/25 08:00 07/13/25 08:00 07/13/25 08:00 Temperature 99.1 F Pulse Rate 97 102 H 126 H Respiratory Rate 21 H Blood Pressure 133/74 Pulse Oximetry 91 91 Oxygen Delivery High Flow Therapy with Na Oxygen Flow Rate 35 Fraction of Inspired Oxygen 45 07/13/25 08:14 07/13/25 08:14 07/13/25 08:28 Temperature Pulse Rate 106 H 106 H 102 H Respiratory Rate 20 20 20 Blood Pressure Pulse Oximetry 95 Oxygen Delivery High Flow Therapy with Na Oxygen Flow Rate 45 Fraction of Inspired Oxygen 45 07/13/25 09:00 07/13/25 09:07 07/13/25 09:15 Temperature Pulse Rate 94 101 H 102 H Respiratory Rate 23 H 20 20 Blood Pressure 139/77 Pulse Oximetry 91 93 88 L Oxygen Delivery High Flow Therapy with Na High Flow Therapy with Na Oxygen Flow Rate 35 35 Fraction of Inspired Oxygen 45 45 07/13/25 10:00 07/13/25 10:00 07/13/25 11:00 Temperature 98.9 F Pulse Rate 95 97 97 Respiratory Rate 25 H 21 H Blood Pressure 126/77 139/71 Pulse Oximetry 97 99 Oxygen Delivery Oxygen Flow Rate Fraction of Inspired Oxygen 07/13/25 11:57 07/13/25 12:00 07/13/25 12:00 Temperature Pulse Rate 110 H 91 Respiratory Rate 21 H Blood Pressure 142/86 H Pulse Oximetry 98 97 Oxygen Delivery High Flow Therapy with Na Oxygen Flow Rate 45 Fraction of Inspired Oxygen 45 07/13/25 13:00 Temperature Pulse Rate 108 H Respiratory Rate 22 H Blood Pressure 128/89 Pulse Oximetry 97 Oxygen Delivery Oxygen Flow Rate Fraction of Inspired Oxygen Intake/Output Intake/Output: Intake & Output 07/10/25 07/11/25 07/12/25 07/13/25 23:59 23:59 23:59 23:59 Intake Total 1217.4 1859.2 300 Output Total 266 586 8972 1050 Balance 807.4 1434.2 -1800 -1050 Meds/Results Medications: Active Medications Generic Name Dose Route Start Last Admin Trade Name Freq PRN Reason Stop Dose Admin Acetaminophen 650 mg 07/07/25 08:10 07/11/25 20:25 Acetaminophen 325 Mg Tablet PO 650 mg Q4H PRN Administration Mild Pain (1-3) or Fever Acetaminophen 650 mg 07/10/25 17:36 07/10/25 21:18 Acetaminophen 650 Mg Suppository RECTAL 650 mg Q6H PRN Administration Fever Dextrose 12.5 gm 07/10/25 15:08 Dextrose 50% 25 Gm/50 Ml Syringe IV PUSH PRN PRN Hypoglycemia Protocol Enoxaparin Sodium 40 mg 07/08/25 09:00 07/13/25 08:27 Enoxaparin 40 Mg/0.4 Ml Syringe SUB-Q 40 mg DAILY IVONE Administration Furosemide 40 mg 07/08/25 09:00 07/10/25 11:01 Furosemide Inj 40 Mg/4 Ml Vial IV PUSH Not Given On Hold: 07/10/25 15:06 DAILY IVONE Glucagon 1 mg 07/10/25 15:08 Glucagon For Inj 1 Mg Vial IM PRN PRN Hypoglycemia Protocol Glucose 15 gm 07/10/25 15:08 Glucose Oral Gel 15 Gm Of Glucse In 37.5 Gm Tube PO PRN PRN Hypoglycemia Protocol Guaifenesin 1,200 mg 07/07/25 21:00 07/10/25 11:01 Guaifenesin 12 Hr 600 Mg Tabcr PO Not Given On Hold: 07/10/25 15:02 Q12HR IVONE Dextrose 1,000 mls @ 100 mls/hr 07/10/25 15:08 Dextrose 5% 1,000 Ml IVPB PRN PRN Hypoglycemia Protocol Doxycycline Hyclate 100 mg/ 100 mls @ 100 mls/hr 07/10/25 21:00 07/13/25 08:29 Sodium Chloride IVPB 100 mls/hr Q12H IVONE Administration Cefepime HCl 2 gm/ Sodium 50 mls @ 100 mls/hr 07/11/25 10:20 07/13/25 08:30 Chloride IVPB 100 mls/hr Q12HR IVONE Administration Vancomycin HCl 1,500 mg in 500 mls @ 250 mls/hr 07/13/25 09:00 07/13/25 09:10 Vancomycin 1,500 Mg/Ns 500 Ml IVPB 250 mls/hr Q18H IVONE Administration Insulin Aspart 3 - 6 units 07/10/25 17:00 07/13/25 12:00 Insulin Aspart (*Bkc) 100 Units/Ml SUB-Q 3 units Q4HR IVONE Administration Protocol Insulin Glargine 10 units 07/12/25 09:00 07/12/25 16:10 Insulin Glargine (*Bkc) 100 Units/Ml SUB-Q Not Given On Hold: 07/13/25 08:23 DAILY IVONE Ipratropium [place] 0.5 mg 07/10/25 15:30 07/13/25 08:14 Ipratropium Br 0.02% Inh Soln 0.5 Mg/2.5 Ml Vial INHALATION 0.5 mg Q6HRT IVONE Administration Levalbuterol HCl 0.63 mg 07/10/25 15:26 07/13/25 08:14 Levalbuterol Neb 1.25 Mg/3 Ml INHALATION 0.63 mg Q6HRT IVONE Administration Loperamide HCl 2 mg 07/07/25 14:57 Loperamide Hcl 2 Mg Capsule PO On Hold: 07/10/25 15:03 PRN PRN Diarrhea Losartan Potassium 25 mg 07/08/25 09:00 07/10/25 11:01 Losartan Potassium 25 Mg Tablet PO Not Given On Hold: 07/10/25 15:04 DAILY [facility] Methocarbamol 500 mg 07/07/25 14:53 07/09/25 08:32 Methocarbamol 500 Mg Tablet PO 500 mg On Hold: 07/10/25 15:03 Q8H PRN Administration muscle spasms Methylprednisolone Sodium Succinate 20 mg 07/14/25 09:00 Methylprednisolone Sod Succ 40 Mg Vial IV PUSH 07/14/25 09:01 DAILY [facility] Pantoprazole Sodium 40 mg 07/08/25 09:00 07/10/25 11:02 Pantoprazole 40 Mg Tablet PO Not Given On Hold: 07/10/25 15:05 QAM IVONE Pantoprazole Sodium 40 mg 07/10/25 15:45 07/13/25 08:27 Pantoprazole Sodium Iv 40 Mg Vial IV PUSH 40 mg QAM IVONE Administration Pramipexole Dihydrochloride 0.5 mg 07/07/25 21:00 07/09/25 20:52 Pramipexole 0.5 Mg Tablet PO 0.5 mg On Hold: 07/10/25 15:03 HS IVONE Administration Pravastatin Sodium 10 mg 07/08/25 09:00 07/10/25 11:02 Pravastatin Sodium 10 Mg Tablet BY MOUTH Not Given On Hold: 07/10/25 15:05 DAILY IVONE Sodium Chloride 20 ml 07/10/25 20:33 Central Line Flush IV PUSH PRN PRN after blood draws Sodium Chloride 10 ml 07/13/25 14:00 07/13/25 13:03 Central Line Flush IV PUSH 10 ml Q8HR IVONE Administration Sodium Chloride 10 ml 07/13/25 08:09 Central Line Flush IV PUSH PRN PRN with TPN bag changes Sodium Chloride 20 ml 07/13/25 08:09 Central Line Flush IV PUSH PRN PRN after blood draws Sotalol HCl 80 mg 07/11/25 10:25 07/12/25 08:45 Sotalol Hcl 80 Mg Tablet PO Not Given On Hold: 07/12/25 13:42 Q12HR [facility] Trimethobenzamide HCl 200 mg 07/07/25 14:56 07/12/25 04:26 Trimethobenzamide Hcl 200 Mg/2 Ml Vial IM 200 mg Q6H PRN Administration Nausea And Vomiting Vitamin D 25 mcg 07/08/25 09:00 07/10/25 11:01 Cholecalciferol (Vitamin D3) 25 Mcg (1,000 Units) Tablet PO Not Given On Hold: 07/10/25 15:02 DAILY [facility] Radiology Results: ITS Impressions Cervical Spine CT 07/07/25 06:30 IMPRESSION: HEAD: 1. No acute intracranial findings. 2. Bilateral mastoiditis. C-SPINE: 1. No acute fracture. 2. Ill-defined fluid and postoperative changes posterior to upper cervical spine. 3. Extensive bilateral upper lung airspace disease, and left pleural effusion. Chest/Abdomen/Pelvis CT 07/07/25 07:13 IMPRESSION: 1. Diffuse lung disease, likely a combination of pneumonia in the upper lobes and left lower lobe and mild pulmonary edema. 2. Small pleural effusions. 3. Colitis involving the rectosigmoid. Head CT 07/10/25 15:36 Impression: 1.No acute intracranial abnormality. Abdomen X-Ray 07/13/25 07:53 IMPRESSION: Multiple loops of dilated small bowel could be associated with ileus; correlate clinically to exclude obstruction. Chest X-Ray 07/13/25 08:21 Impression: Mild CHF Abdomen/Pelvis CT 07/13/25 13:46 IMPRESSION: 1. Increased size of pleural effusions which are small to moderate compared to small on the previous exam. Bibasilar atelectatic changes with possible developing consolidation and/or vascular congestion. 2. Fluid and gas dilated rectosigmoid region with findings suggestive of mild colitis and diarrhea process. 3. Extraperitoneal findings of uncertain significance possibly associated with the air foci associated with injections. Correlate clinically to exclude active inflammatory/infectious process in the extra peritoneal soft tissues. Labs Labs: Laboratory Results - last 24 hr 07/12/25 07/12/25 07/13/25 16:08 20:36 01:06 WBC RBC Hgb Hct MCV MCH MCHC RDW Plt Count MPV Immature Gran % (Auto) Neut % (Auto) Lymph % (Auto) [place] % (Auto) Eos % (Auto) Baso % (Auto) Lymph # (Auto) [place] # (Auto) Eos # (Auto) Baso # (Auto) Abs Immat Gran (auto) Absolute Neuts (auto) Absolute Nucleated RBC Band Neutrophils % Nucleated RBC % Platelet Estimate Ovalocytes [place] Cells Schistocytes Sodium Potassium Chloride Carbon Dioxide Anion Gap BUN Creatinine Estim Creat Clear Calc Estimated GFR Glucose POC Capillary Glucose 177 H 168 H 198 H Lactic Acid Calcium Phosphorus Magnesium Total Bilirubin AST ALT Alkaline Phosphatase Total Protein Albumin 07/13/25 07/13/25 07/13/25 03:35 08:22 11:47 WBC 9.9 RBC 3.39 L Hgb 9.5 L Hct 32.3 L MCV 95.3 MCH 28.0 MCHC 29.4 L RDW 20.5 H Plt Count 282 MPV 10.3 Immature Gran % (Auto) 0.9 H Neut % (Auto) 85.5 H Lymph % (Auto) 5.5 L [place] % (Auto) 8.0 Eos % (Auto) 0.0 Baso % (Auto) 0.1 L Lymph # (Auto) 0.54 L [place] # (Auto) 0.8 H Eos # (Auto) 0.0 Baso # (Auto) 0.0 Abs Immat Gran (auto) 0.09 H Absolute Neuts (auto) 8.5 H Absolute Nucleated RBC 0.000 Band Neutrophils % Not Reportable Nucleated RBC % 0.0 Platelet Estimate Adequate Ovalocytes 1+ [place] Cells Occasional Schistocytes None seen Sodium 132 L Potassium 3.7 Chloride 99 Carbon Dioxide 32 H Anion Gap 1 L BUN 36 H Creatinine 0.86 Estim Creat Clear Calc 48 Estimated GFR > 60 Glucose 188 H POC Capillary Glucose 197 H 221 H Lactic Acid 1.4 Calcium 8.5 Phosphorus 2.9 Magnesium 2.2 Total Bilirubin 0.5 AST 26 ALT 22 Alkaline Phosphatase 215 H Total Protein 5.6 L Albumin 3.2 L
--- NOTE | 2025-07-13 14:44 | PCPTNOTE ---
Attempted PT re-evaluation, pt medically not able to safely participate in skilled therapy. Discharging pt until pt is able to safely participate in skilled therapy. Please re-order when pt is appropriate.
[2025-07-13] MEDS: ACETAMINOPHEN 325 MG TABLET 650 MG PO (22:14)
[2025-07-14] VITALS (35 sets, daily range): BP systolic 95–149; BP diastolic 57–97; PULSE 61–125; RESP 17–28; TEMP 36.9–37.2; O2SAT 87–99
[2025-07-14] MEDS: IPRATROPIUM BR 0.02% INH SOLN 0.5 MG/2.5 ML VIAL INHALATION ×2 (02:44→08:04)
[2025-07-14] MEDS: VANCOMYCIN 1,500 MG/NS 500 ML 1,500 MG/500 ML BAG 250 MG IVPB (05:22)
[2025-07-14] MEDS: CENTRAL LINE FLUSH 10 ML IV PUSH ×3 (05:24→20:40)
[2025-07-14 05:31] LABS: Hematocrit 31.2 % (37.0-47.0); Hemoglobin 9.4 g/dL (12.0-15.0); Immature Granulocyte Percent A 1.0 % (0-0.5); Lymphocytes Absolute Auto 1.05 K/mm3 (0.9-3.2); Mean Corpuscular HGB Conc 30.1 g/dl (32-36); Mean Corpuscular Hemoglobin 28.4 pg (26-34); Mean Corpuscular Volume 94.3 fl (80-100); Nucleated Red Blood Cells Absolute Auto 0.000 K/mm3 (0.0-0.012); Nucleated Red Blood Cells Perc 0.0 % (0.0-0.2); Platelet Count Result 291 k/mm3 (150-375); Red Blood Count 3.31 M/mm3 (4.2-5.4); White Blood Count 9.8 K/mm3 (4.5-10.0)
[2025-07-14 05:51] LABS: Anion Gap 2 mmol/L (4-12); Blood Urea Nitrogen 32 mg/dL (7-17); Calcium 8.7 mg/dL (8.4-10.2); Carbon Dioxide 36 mmol/L (22-30); Chloride 99 mmol/L (98-107); Estimated CRCL calculation 41 ml/min; Estimated Glomerular Filt Rate 53; Glucose 130 mg/dL (65-110); Magnesium 2.2 mg/dL (1.6-2.3); Potassium 3.4 mmol/L (3.4-5.0); Sodium 137 mmol/L (137-145)
[2025-07-14] MEDS: KCL 40 MEQ/WATER 100 ML 100 ML 25 ML IVPB ×2 (08:55→18:46)
[2025-07-14] MEDS: CEFEPIME 2 GM in SODIUM CHLORIDE 0.9% IV 50 ML 100 ML IVPB ×2 (08:55→20:14)
[2025-07-14] MEDS: ACETAMINOPHEN 325 MG TABLET 650 MG PO (08:58)
[2025-07-14] MEDS: PANTOPRAZOLE SODIUM IV 40 MG VIAL IV PUSH (08:59)
[2025-07-14] MEDS: ENOXAPARIN 40 MG/0.4 ML SYRINGE SUB-Q (08:59)
--- NOTE | 2025-07-14 09:03 | P.PNINT_ITS ---
Progress Note: A&P Assessment and Plan (1) Ileus: Code(s): K56.7 - Ileus, unspecified Status: Acute Assessment and Plan: Patient complained of abdominal pain, abdominal obstructive series showed dilated bowel loops 07/14 CT abdomen pelvis did not show any obstruction NG tube is in place to low intermittent suction NPO GI and general surgery following (2) Encephalopathy: Code(s): G93.40 - Encephalopathy, unspecified Status: Acute Assessment and Plan: Likely related to hypercapnic respiratory failure, sepsis/infection, pretty obtunded, unable to open her eyes or follow simple commands, placed on AVAPS mode on presentation -07/10: Repeat head CT: No acute intracranial abnormality -ammonia levels were normal <9. Improved now and patient is now AO x3 (3) Acute and chronic respiratory failure: Code(s): J96.20 - Acute and chronic respiratory failure, unspecified whether with hypoxia or hypercapnia Status: Acute Assessment and Plan: Acute hypercapnic respiratory failure likely related to multifactorial issues, patient has a history of COPD, pulmonary hypertension, CHF, sarcoidosis, interstitial lung disease, now here with urinary tract infection, fall On presentation patient was placed on AVAPS -hypercapnia has resolved and patient is now alert oriented None imaging shows combination of pulmonary edema pleural effusions and pneumonia Continue ceftriaxone and doxycycline (07/07) Continue Lasix She is on high-flow nasal cannula have feed her to regular nasal cannula and will monitor. Continue incentive spirometry Change bronchodilators p.r.n. to minimize tachycardia Continue home steroid dose for sarcoidosis (4) Sepsis: Code(s): A41.9 - Sepsis, unspecified organism Status: Acute Assessment and Plan: Patient presented with a fall, altered mental status, urinary tract infection -07/07: Urine cultures growing Enterobacter cloaca and Proteus penneri, both of them a susceptible to cefepime -07/07: Blood cultures no growth x2 -07/10: Urine Legionella and streptococcal antigen pending -continue cefepime and doxycycline (07/11) UTI and pneumonia. Discontinue vancomycin (5) Acute exacerbation of chronic obstructive pulmonary disease: Code(s): J44.1 - Chronic obstructive pulmonary disease with (acute) exacerbation Status: Acute Assessment and Plan: Oxygen therapy as above. P.r.n. bronchodilators. Off steroids Antibiotics as above (6) UTI (urinary tract infection): Code(s): N39.0 - Urinary tract infection, site not specified Status: Acute Assessment and Plan: Continue antibiotics as above, urine culture as above (7) Paroxysmal atrial fibrillation: Code(s): I48.0 - Paroxysmal atrial fibrillation Status: Chronic Assessment and Plan: Patient with history of paroxysmal AFib with intermittent rapid ventricular response, she does nonsustained tachycardia -patient was started on amiodarone overnight -07/11: Restarted on sotalol after discussion with Cardiology, amiodarone was turned off -given a ileus/obstruction, holding sotalol Cardiology following and managing She was on rivaroxaban but was held as patient was NPO, Also her anticoagulation was stopped by Cardiology as she has had a fall. Dr. Allen discussed with Cardiology regarding anticoagulation, Dr. Sorensen, stated that her in the mostly is atrial tachycardia and not atrial fibrillation and the risk for strokes is much decreased, he would like to wait on anticoagulation. 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: without shelter use Qualified Code(s): E11.21 - Type 2 diabetes mellitus with diabetic nephropathy Code(s): E11.21 - Type 2 diabetes mellitus with diabetic nephropathy Status: Acute Assessment and Plan: Continue SSI (9) Sarcoid: Code(s): D86.9 - Sarcoidosis, unspecified Status: Acute Assessment and Plan: Recently diagnosed sarcoidosis and [facility] -patient's calcium level a within normal limits -weaning Solu-Medrol to 20 mg IV daily, will keep her on a maintenance dose of Solu-Medrol for sarcoidosis until she can start taking oral prednisone (10) Pulmonary hypertension: Code(s): I27.20 - Pulmonary hypertension, unspecified Status: Acute Assessment and Plan: History of pulmonary hypertension, likely related to sleep apnea, sarcoidosis, interstitial lung disease, coronary artery disease, COPD/: Pulmonology 11/21/2022: Echocardiogram RVSP was 59 mmHg Cardiology following the patient for atrial fibrillation and atrial tachycardia 07/11/2025: Echocardiogram Summary 1. Definity contrast administered improved wall motion interpretation. 2. Left ventricular chamber dimension is normal. 3. Left ventricular systolic function is normal, estimated at 65-70. 4. There is moderate concentric increased left ventricular wall thickness. 5. The left ventricular diastolic function is abnormal. 6. E/e' 26 is significantly elevated. 7. Right ventricular systolic function is reduced based on an abnormal TAPSE 1.4 cm. 8. Left atrial chamber dimension is mildly enlarged. 9. There is moderate aortic valve sclerosis. 10. The mitral valve has a moderately calcified annulus. 11. There is trace mitral valve regurgitation. 12. There is moderate tricuspid valve regurgitation. 13. Severe pulmonary hypertension, estimated pulmonary arterial systolic pressure is 60 mmHg. 14. There is trace pulmonic regurgitation. (11) Fall: Code(s): W19.XXXA - Unspecified fall, initial encounter Status: Acute Assessment and Plan: Patient presented with a fall on 07/07 -status post fusion of C2-C6 at [facility] on 06/26/2025 for cervical myelopathy -07/07: CT cervical spine showed fluid collection at the surgical site. Neur osurgery at [facility] evaluated the patient, no drainage from her incision and hardware was well-positioned, the neurosurgery team had no additional recommendations. -PT OT has been ordered (12) Pressure ulcer: Code(s): L89.90 - Pressure ulcer of unspecified site, unspecified stage Status: Acute Assessment and Plan: Stage III pressure ulcer on coccyx and sacrum -wound care following Plan DVT prophylaxis: Patient had recent fall on rivaroxaban, currently holding chemoprophylaxis since patient had a fall with altered mental status. Continue SCDs Stress ulcer prophylaxis: Protonix Nutrition: NPO Code Status: Full code I spoke to patient and at bedside. I answered all their questions. Case also discussed with the hospitalist. Critical Care Time Spent: 30 minutes Due to a high probability of clinically significant, life threatening deterioration, the patient required my highest level of preparedness to intervene emergently and I personally spent this critical care time directly and personally managing the patient. This critical care time included obtaining a history; examining the patient; pulse oximetry; ordering and review of studies; arranging urgent treatment with development of a management plan; evaluation of patient's response to treatment; frequent reassessment; and discussions with other providers. It was exclusive of separately billable procedures and treating other patients and teaching time. Please see Assessment and Plan section and the rest of the note for further information on patient assessment and treatment This dictation may have been done utilizing a voice recognition system. Attempts have been made to correct errors. However, there may be uncorrected grammatical, spelling, and recognitions errors present. Subjective Date/time seen: 07/14/25 Patient states he is hungry and would like some water and food. She does feel short of breath intermittently. She also feels weak and tired. She states she has intermittent belly pain. All other systems were reviewed and were negative She is currently has a NG tube to low intermittent suction 650 mL out overnight She has a Schmidt and received Lasix Sinus rhythm with frequent PACs On high-flow nasal cannula Afebrile Interval history: Reason for consult: Encephalopathy, hypercapnic respiratory failure, intermittent atrial fibrillation with rapid ventricular response, sepsis Review of Systems Review of Systems: All systems reviewed & are unremarkable except as noted in HPI and below Exam Narrative: General: Ill-appearing female, appears older than her stated age HEENT:? pupils equal and reactive, sclera is clear, HFNC in place Neck:? Hard cervical collar in place Respiratory: Improved air entry bilaterally, decreased at bases, occasional crackles at bases Cardiac:? Irregularly irregular, rate controlled Abdomen:? Soft, periumbilical tenderness, slightly distended, hypoactive but present bowel sounds NG tube in place Extremities:? Upper extremities edematous, palpable pedal pulses on lower extremities Neuro:? Awake, alert, oriented x3 able to answer questions and follows simple commands in all 4 extremities Skin:? Bruising noted on upper extremities Psych:? Normal mentation, depressed affect Objective Data Vital Signs Vital Signs: Vital Signs - 24 hr 07/13/25 09:07 07/13/25 09:15 07/13/25 10:00 Temperature Pulse Rate 101 H 102 H 95 Respiratory Rate 20 20 Blood Pressure Pulse Oximetry 93 88 L Oxygen Delivery High Flow Therapy with Na High Flow Therapy with Na Oxygen Flow Rate 35 35 Fraction of Inspired Oxygen 45 45 07/13/25 10:00 07/13/25 11:00 07/13/25 11:57 Temperature 37.2 C Pulse Rate 97 97 Respiratory Rate 25 H 21 H Blood Pressure 126/77 139/71 Pulse Oximetry 97 99 98 Oxygen Delivery High Flow Therapy with Na Oxygen Flow Rate 45 Fraction of Inspired Oxygen 45 07/13/25 12:00 07/13/25 12:00 07/13/25 13:00 Temperature Pulse Rate 110 H 91 108 H Respiratory Rate 21 H 22 H Blood Pressure 142/86 H 128/89 Pulse Oximetry 97 97 Oxygen Delivery Oxygen Flow Rate Fraction of Inspired Oxygen 07/13/25 14:00 07/13/25 14:40 07/13/25 14:40 Temperature Pulse Rate 112 H 119 H 119 H Respiratory Rate 24 H 26 H Blood Pressure Pulse Oximetry 97 Oxygen Delivery High Flow Therapy with Na Oxygen Flow Rate 45 Fraction of Inspired Oxygen 45 07/13/25 14:54 07/13/25 15:00 07/13/25 15:51 Temperature Pulse Rate 109 H 84 Respiratory Rate 17 22 H Blood Pressure 133/96 H Pulse Oximetry 99 100 Oxygen Delivery High Flow Therapy with Na Oxygen Flow Rate 45 Fraction of Inspired Oxygen 45 07/13/25 16:00 07/13/25 16:00 07/13/25 17:00 Temperature 37.0 C Pulse Rate 104 H 97 81 Respiratory Rate 22 H 20 Blood Pressure 123/92 H 116/79 Pulse Oximetry 99 100 Oxygen Delivery Oxygen Flow Rate Fraction of Inspired Oxygen 07/13/25 18:00 07/13/25 18:00 07/13/25 19:00 Temperature Pulse Rate 108 H 125 H 100 Respiratory Rate 23 H 20 Blood Pressure 141/81 H 110/80 Pulse Oximetry 100 99 Oxygen Delivery Oxygen Flow Rate Fraction of Inspired Oxygen 07/13/25 20:00 07/13/25 20:00 07/13/25 20:00 Temperature 36.9 C Pulse Rate 84 126 H 126 H Respiratory Rate 20 22 H Blood Pressure 124/89 Pulse Oximetry 100 99 Oxygen Delivery High Flow Therapy with Na Oxygen Flow Rate 45 Fraction of Inspired Oxygen 45 07/13/25 20:00 07/13/25 20:10 07/13/25 21:00 Temperature Pulse Rate 89 83 76 Respiratory Rate 21 H 21 H 20 Blood Pressure 124/63 Pulse Oximetry 100 Oxygen Delivery Oxygen Flow Rate Fraction of Inspired Oxygen 07/13/25 22:00 07/13/25 22:00 07/13/25 23:00 Temperature 37.1 C 37.0 C Pulse Rate 84 82 95 Respiratory Rate 20 20 Blood Pressure 112/70 95/77 L Pulse Oximetry 98 100 Oxygen Delivery Oxygen Flow Rate Fraction of Inspired Oxygen 07/14/25 00:00 07/14/25 00:00 07/14/25 00:00 Temperature 36.9 C Pulse Rate 86 82 82 Respiratory Rate 20 21 H Blood Pressure 115/64 Pulse Oximetry 98 99 Oxygen Delivery High Flow Therapy with Na Oxygen Flow Rate 45 Fraction of Inspired Oxygen 45 07/14/25 01:00 07/14/25 01:53 07/14/25 02:00 Temperature 37.1 C Pulse Rate 86 89 92 Respiratory Rate 20 21 H Blood Pressure 136/78 Pulse Oximetry 97 98 Oxygen Delivery High Flow Therapy with Na Oxygen Flow Rate 45 Fraction of Inspired Oxygen 45 07/14/25 02:00 07/14/25 02:49 07/14/25 02:58 Temperature 36.9 C Pulse Rate 90 82 Respiratory Rate 18 24 H Blood Pressure 121/84 Pulse Oximetry 98 97 Oxygen Delivery High Flow Therapy with Na Oxygen Flow Rate 35 Fraction of Inspired Oxygen 40 07/14/25 03:00 07/14/25 04:00 07/14/25 04:00 Temperature 37.0 C Pulse Rate 97 111 H 111 H Respiratory Rate 17 17 Blood Pressure 132/89 Pulse Oximetry 96 99 Oxygen Delivery High Flow Therapy with Na Oxygen Flow Rate 35 Fraction of Inspired Oxygen 40 07/14/25 04:00 07/14/25 05:00 07/14/25 06:00 Temperature 37.0 C Pulse Rate 97 94 68 Respiratory Rate 18 28 H Blood Pressure 130/86 104/57 L Pulse Oximetry 96 97 Oxygen Delivery Oxygen Flow Rate Fraction of Inspired Oxygen 07/14/25 06:00 07/14/25 08:04 07/14/25 08:04 Temperature 37.1 C Pulse Rate 83 81 81 Respiratory Rate 22 H 22 H 22 H Blood Pressure 106/66 Pulse Oximetry 98 99 Oxygen Delivery High Flow Therapy with Na Oxygen Flow Rate 35 Fraction of Inspired Oxygen 40 07/14/25 08:15 07/14/25 08:29 07/14/25 08:35 Temperature Pulse Rate 85 102 H 91 Respiratory Rate 22 H 24 H 24 H Blood Pressure Pulse Oximetry 98 97 Oxygen Delivery High Flow Therapy with Na Nasal Cannula Oxygen Flow Rate 30 3 Fraction of Inspired Oxygen 30 Intake/Output Intake/Output: Intake & Output 07/11/25 07/12/25 07/13/25 07/14/25 23:59 23:59 23:59 23:59 Intake Total 1859.2 300 650 Output Total 425 2100 1950 950 Balance 1434.2 -1800 -1300 -950 Meds/Results Medications: Active Medications Generic Name Dose Route Start Last Admin Trade Name Freq PRN Reason Stop Dose Admin Acetaminophen 650 mg 07/07/25 08:10 07/13/25 22:14 Acetaminophen 325 Mg Tablet PO 650 mg Q4H PRN Administration Mild Pain (1-3) or Fever Acetaminophen 650 mg 07/10/25 17:36 07/10/25 21:18 Acetaminophen 650 Mg Suppository RECTAL 650 mg Q6H PRN Administration Fever Dextrose 12.5 gm 07/10/25 15:08 Dextrose 50% 25 Gm/50 Ml Syringe IV PUSH PRN PRN Hypoglycemia Protocol Enoxaparin Sodium 40 mg 07/08/25 09:00 07/13/25 08:27 Enoxaparin 40 Mg/0.4 Ml Syringe SUB-Q 40 mg DAILY IVONE Administration Furosemide 40 mg 07/08/25 09:00 07/10/25 11:01 Furosemide Inj 40 Mg/4 Ml Vial IV PUSH Not Given On Hold: 07/10/25 15:06 DAILY IVONE Glucagon 1 mg 07/10/25 15:08 Glucagon For Inj 1 Mg Vial IM PRN PRN Hypoglycemia Protocol Glucose 15 gm 07/10/25 15:08 Glucose Oral Gel 15 Gm Of Glucse In 37.5 Gm Tube PO PRN PRN Hypoglycemia Protocol Guaifenesin 1,200 mg 07/07/25 21:00 07/10/25 11:01 Guaifenesin 12 Hr 600 Mg Tabcr PO Not Given On Hold: 07/10/25 15:02 Q12HR IVONE Dextrose 1,000 mls @ 100 mls/hr 07/10/25 15:08 Dextrose 5% 1,000 Ml IVPB PRN PRN Hypoglycemia Protocol Doxycycline Hyclate 100 mg/ 100 mls @ 100 mls/hr 07/10/25 21:00 07/13/25 20:20 Sodium Chloride IVPB 07/15/25 20:59 100 mls/hr Q12H IVONE Administration Cefepime HCl 2 gm/ Sodium 50 mls @ 100 mls/hr 07/11/25 10:20 07/13/25 20:15 Chloride IVPB 100 mls/hr Q12HR IVONE Administration Potassium Chloride 100 mls @ 25 mls/hr 07/14/25 08:09 Kcl 40 Meq/Water 100 Ml IVPB 07/14/25 12:08 ONCE ONE Insulin Aspart 3 - 6 units 07/10/25 17:00 07/14/25 05:34 Insulin Aspart (*Bkc) 100 Units/Ml SUB-Q Not Given Q4HR [facility] Protocol Insulin Glargine 10 units 07/12/25 09:00 07/12/25 16:10 Insulin Glargine (*Bkc) 100 Units/Ml SUB-Q Not Given On Hold: 07/13/25 08:23 DAILY IVONE Ipratropium [place] 0.5 mg 07/14/25 08:25 Ipratropium Br 0.02% Inh Soln 0.5 Mg/2.5 Ml Vial INHALATION Q6HRT PRN Wheezing Levalbuterol HCl 0.63 mg 07/14/25 08:25 Levalbuterol Neb 1.25 Mg/3 Ml INHALATION Q6HRT PRN Wheezing Loperamide HCl 2 mg 07/07/25 14:57 Loperamide Hcl 2 Mg Capsule PO On Hold: 07/10/25 15:03 PRN PRN Diarrhea Pantoprazole Sodium 40 mg 07/10/25 15:45 07/13/25 08:27 Pantoprazole Sodium Iv 40 Mg Vial IV PUSH 40 mg QAM IVONE Administration Pramipexole Dihydrochloride 0.5 mg 07/07/25 21:00 07/09/25 20:52 Pramipexole 0.5 Mg Tablet PO 0.5 mg On Hold: 07/10/25 15:03 HS IVONE Administration Pravastatin Sodium 10 mg 07/08/25 09:00 07/10/25 11:02 Pravastatin Sodium 10 Mg Tablet BY MOUTH Not Given On Hold: 07/10/25 15:05 DAILY IVONE Sodium Chloride 20 ml 07/10/25 20:33 Central Line Flush IV PUSH PRN PRN after blood draws Sodium Chloride 10 ml 07/13/25 14:00 07/14/25 05:24 Central Line Flush IV PUSH 10 ml Q8HR IVONE Administration Sodium Chloride 10 ml 07/13/25 08:09 Central Line Flush IV PUSH PRN PRN with TPN bag changes Sodium Chloride 20 ml 07/13/25 08:09 Central Line Flush IV PUSH PRN PRN after blood draws Sotalol HCl 80 mg 07/11/25 10:25 07/12/25 08:45 Sotalol Hcl 80 Mg Tablet PO Not Given On Hold: 07/12/25 13:42 Q12HR IVONE Trimethobenzamide HCl 200 mg 07/07/25 14:56 07/12/25 04:26 Trimethobenzamide Hcl 200 Mg/2 Ml Vial IM 200 mg Q6H PRN Administration Nausea And Vomiting Radiology Results: ITS Impressions Cervical Spine CT 07/07/25 06:30 IMPRESSION: HEAD: 1. No acute intracranial findings. 2. Bilateral mastoiditis. C-SPINE: 1. No acute fracture. 2. Ill-defined fluid and postoperative changes posterior to upper cervical spine. 3. Extensive bilateral upper lung airspace disease, and left pleural effusion. Chest/Abdomen/Pelvis CT 07/07/25 07:13 IMPRESSION: 1. Diffuse lung disease, likely a combination of pneumonia in the upper lobes and left lower lobe and mild pulmonary edema. 2. Small pleural effusions. 3. Colitis involving the rectosigmoid. Head CT 07/10/25 15:36 Impression: 1.No acute intracranial abnormality. Abdomen X-Ray 07/13/25 07:53 IMPRESSION: Multiple loops of dilated small bowel could be associated with ileus; correlate clinically to exclude obstruction. Abdomen/Pelvis CT 07/13/25 13:46 IMPRESSION: 1. Increased size of pleural effusions which are small to moderate compared to small on the previous exam. Bibasilar atelectatic changes with possible developing consolidation and/or vascular congestion. 2. Fluid and gas dilated rectosigmoid region with findings suggestive of mild colitis and diarrhea process. 3. Extraperitoneal findings of uncertain significance possibly associated with the air foci associated with injections. Correlate clinically to exclude active inflammatory/infectious process in the extra peritoneal soft tissues. NG Tube Placement 07/13/25 14:43 IMPRESSION: 1. Fluoroscopy utilized during placement of a nasogastric tube with distal tip in proximal side port in the body the stomach. Chest X-Ray 07/14/25 08:05 IMPRESSION: 1. Interval placement of gastric catheter which appears adequately positioned. Multifocal alveolar changes suggesting pulmonary edema and/or pneumonia similar to the yesterday's exam. Labs Labs: Laboratory Results - last 24 hr 07/13/25 07/13/25 07/13/25 11:47 17:01 20:20 WBC RBC Hgb Hct MCV MCH MCHC RDW Plt Count MPV Immature Gran % (Auto) Neut % (Auto) Lymph % (Auto) [place] % (Auto) Eos % (Auto) Baso % (Auto) Lymph # (Auto) [place] # (Auto) Eos # (Auto) Baso # (Auto) Abs Immat Gran (auto) Absolute Neuts (auto) Absolute Nucleated RBC Nucleated RBC % Sodium Potassium Chloride Carbon Dioxide Anion Gap BUN Creatinine Estim Creat Clear Calc Estimated GFR Glucose POC Capillary Glucose 221 H 205 H 194 H Calcium Magnesium 07/14/25 07/14/25 07/14/25 00:13 05:21 05:32 WBC 9.8 RBC 3.31 L Hgb 9.4 L Hct 31.2 L MCV 94.3 MCH 28.4 MCHC 30.1 L RDW 20.3 H Plt Count 291 MPV 10.2 Immature Gran % (Auto) 1.0 H Neut % (Auto) 72.8 Lymph % (Auto) 10.8 L [place] % (Auto) 15.0 H Eos % (Auto) 0.4 Baso % (Auto) 0.0 L Lymph # (Auto) 1.05 [place] # (Auto) 1.5 H Eos # (Auto) 0.0 Baso # (Auto) 0.0 Abs Immat Gran (auto) 0.10 H Absolute Neuts (auto) 7.1 H Absolute Nucleated RBC 0.000 Nucleated RBC % 0.0 Sodium 137 Potassium 3.4 Chloride 99 Carbon Dioxide 36 H Anion Gap 2 L BUN 32 H Creatinine 1.02 H Estim Creat Clear Calc 41 Estimated GFR 53 L Glucose 130 H POC Capillary Glucose 174 H 140 H Calcium 8.7 Magnesium 2.2 Quality VTE Prophylaxis VTE prophylaxis: mechanical ordered
[2025-07-14] MEDS: DOXYCYCLINE IV 100 MG in SODIUM CHLORIDE 0.9% IV 100 ML IVPB ×2 (09:48→20:40)
--- NOTE | 2025-07-14 10:47 | WPDPN ---
Progress Note: A&P Assessment and Plan (1) Sarcoid: Code(s): D86.9 - Sarcoidosis, unspecified Status: Acute (2) Ileus: Code(s): K56.7 - Ileus, unspecified Status: Acute Plan Ileus, improving -KUB concerning for worsening dilated loops of bowel -appreciate GI consult quadrant condition NG tube decompression -appreciate general surgical consultation: Recommendation for abdominal CT scan -abdominal CT scan with contrast 07/13: Including gas dilated rectosigmoid concerning for colitis, no SBO -NG tube placed by IR 07/13 -will add some Chloraseptic spray for her sore throat Multifocal atrial tachycardia, stable -patient has paroxysmal atrial fibrillation on Xarelto and rate control with sotalol -currently patient appears to have atrial tachycardia heart rate fluctuating from 90 to 140s -appreciate Cardiology consultation Dr. Sorensen -history of paroxysmal atrial fibrillation -may need to give p.r.n. metoprolol for sustained tachycardia while NPO. Now that she has no SBO hopefully we can resume sotalol Acute hypoxic respiratory failure Community-acquired pneumonia? Sarcoidosis -patient on heated high-flow oxygen changed to nasal cannula 3L, not on bipap -appreciate pulmonology management -antibiotics: Vancomycin/cefepime/doxycycline -MRSA nares positive -steroids: Solu-Medrol 20 mg IV push daily -holding Lasix Chronic conditions -type 2 diabetes: Monitor glucose, held glargine 10 units daily, sliding scale insulin -polymyalgia rheumatica: Steroid -pulmonary hypertension: Diuretic -C-collar in place -hyperlipidemia: Pravastatin -RLS: mirapex, Robaxin -essential hypertension: Losartan -supplements: D3 Diet: NPO DVT prophylaxis: SCDs, home on Xarelto, Lovenox for now GI prophylaxis: Protonix Code status: Full code Disposition: ICU, possibly downgrade to medical floor if vitals are stable, SNF>2 days Time Spent With Patient Time: 35 minutes Subjective Date/time seen: 07/14/25 10:47 Interval history: Patient seen examined. She has been weaned down to 3 L by nasal cannula and appear heart rate seemed to be much better today as well. Abdominal CT scan does not show any obstruction. NG tube still in place. Will advance diet slowly. updated bedside. She is doing much better and possibly downgrade from ICU later this afternoon. We will need to start getting patient out of bed. Review of Systems Review of Systems: 10 point ROS complete, negative other than what is specified in HPI. Exam Narrative: - GENERAL: Pleasant chronically ill-appearing elderly woman in No acute distress - EYES: EOMI. Anicteric. - HENT: Moist mucous membranes. C-collar in place - LUNGS: Clear to auscultation, slightly diminished, on 2 L oxygen nasal cannula - CARDIOVASCULAR: Regular rate and rhythm - ABDOMEN: Soft, still slightly distended, nontender, increased bowel sounds - EXTREMITIES: No edema. Peripheral pulses 2+. - NEUROLOGIC: No focal neurological deficits. CN II-XII grossly intact. - PSYCHIATRIC: Awake, Alert and oriented x 3. Appropriate mood and affect. Objective Data Vital Signs Vital Signs: Vital Signs - 24 hr 07/13/25 11:00 07/13/25 11:57 07/13/25 12:00 Temperature 37.2 C Pulse Rate 97 110 H Respiratory Rate 21 H 21 H Blood Pressure 139/71 142/86 H Pulse Oximetry 99 98 97 Oxygen Delivery High Flow Therapy with Na Oxygen Flow Rate 45 Fraction of Inspired Oxygen 45 07/13/25 12:00 07/13/25 13:00 07/13/25 14:00 Temperature Pulse Rate 91 108 H 112 H Respiratory Rate 22 H Blood Pressure 128/89 Pulse Oximetry 97 Oxygen Delivery Oxygen Flow Rate Fraction of Inspired Oxygen 07/13/25 14:40 07/13/25 14:40 07/13/25 14:54 Temperature Pulse Rate 119 H 119 H 109 H Respiratory Rate 24 H 26 H 17 Blood Pressure Pulse Oximetry 97 Oxygen Delivery High Flow Therapy with Na Oxygen Flow Rate 45 Fraction of Inspired Oxygen 45 07/13/25 15:00 07/13/25 15:51 07/13/25 16:00 Temperature Pulse Rate 84 104 H Respiratory Rate 22 H 22 H Blood Pressure 133/96 H 123/92 H Pulse Oximetry 99 100 99 Oxygen Delivery High Flow Therapy with Na Oxygen Flow Rate 45 Fraction of Inspired Oxygen 45 07/13/25 16:00 07/13/25 17:00 07/13/25 18:00 Temperature 37.0 C Pulse Rate 97 81 108 H Respiratory Rate 20 Blood Pressure 116/79 Pulse Oximetry 100 Oxygen Delivery Oxygen Flow Rate Fraction of Inspired Oxygen 07/13/25 18:00 07/13/25 19:00 07/13/25 20:00 Temperature Pulse Rate 125 H 100 84 Respiratory Rate 23 H 20 20 Blood Pressure 141/81 H 110/80 Pulse Oximetry 100 99 100 Oxygen Delivery High Flow Therapy with Na Oxygen Flow Rate 45 Fraction of Inspired Oxygen 45 07/13/25 20:00 07/13/25 20:00 07/13/25 20:00 Temperature 36.9 C Pulse Rate 126 H 126 H 89 Respiratory Rate 22 H 21 H Blood Pressure 124/89 Pulse Oximetry 99 Oxygen Delivery Oxygen Flow Rate Fraction of Inspired Oxygen 07/13/25 20:10 07/13/25 21:00 07/13/25 22:00 Temperature Pulse Rate 83 76 84 Respiratory Rate 21 H 20 Blood Pressure 124/63 Pulse Oximetry 100 Oxygen Delivery Oxygen Flow Rate Fraction of Inspired Oxygen 07/13/25 22:00 07/13/25 23:00 07/14/25 00:00 Temperature 37.1 C 37.0 C Pulse Rate 82 95 86 Respiratory Rate 20 20 20 Blood Pressure 112/70 95/77 L Pulse Oximetry 98 100 98 Oxygen Delivery High Flow Therapy with Na Oxygen Flow Rate 45 Fraction of Inspired Oxygen 45 07/14/25 00:00 07/14/25 00:00 07/14/25 01:00 Temperature 36.9 C 37.1 C Pulse Rate 82 82 86 Respiratory Rate 21 H 20 Blood Pressure 115/64 136/78 Pulse Oximetry 99 97 Oxygen Delivery Oxygen Flow Rate Fraction of Inspired Oxygen 07/14/25 01:53 07/14/25 02:00 07/14/25 02:00 Temperature 36.9 C Pulse Rate 89 92 90 Respiratory Rate 21 H 18 Blood Pressure 121/84 Pulse Oximetry 98 98 Oxygen Delivery High Flow Therapy with Na Oxygen Flow Rate 45 Fraction of Inspired Oxygen 45 07/14/25 02:49 07/14/25 02:58 07/14/25 03:00 Temperature 37.0 C Pulse Rate 82 97 Respiratory Rate 24 H 17 Blood Pressure 132/89 Pulse Oximetry 97 96 Oxygen Delivery High Flow Therapy with Na Oxygen Flow Rate 35 Fraction of Inspired Oxygen 40 07/14/25 04:00 07/14/25 04:00 07/14/25 04:00 Temperature 37.0 C Pulse Rate 111 H 111 H 97 Respiratory Rate 17 18 Blood Pressure 130/86 Pulse Oximetry 99 96 Oxygen Delivery High Flow Therapy with Na Oxygen Flow Rate 35 Fraction of Inspired Oxygen 40 07/14/25 05:00 07/14/25 06:00 07/14/25 06:00 Temperature 37.1 C Pulse Rate 94 68 83 Respiratory Rate 28 H 22 H Blood Pressure 104/57 L 106/66 Pulse Oximetry 97 98 Oxygen Delivery Oxygen Flow Rate Fraction of Inspired Oxygen 07/14/25 07:00 07/14/25 08:00 07/14/25 08:00 Temperature 36.9 C 36.9 C Pulse Rate 81 82 98 Respiratory Rate 22 H 21 H Blood Pressure 121/69 115/81 Pulse Oximetry 98 87 L Oxygen Delivery Oxygen Flow Rate Fraction of Inspired Oxygen 07/14/25 08:00 07/14/25 08:04 07/14/25 08:04 Temperature Pulse Rate 89 81 81 Respiratory Rate 20 22 H 22 H Blood Pressure Pulse Oximetry 98 99 Oxygen Delivery Nasal Cannula High Flow Therapy with Na Oxygen Flow Rate 3 35 Fraction of Inspired Oxygen 40 07/14/25 08:15 07/14/25 08:29 07/14/25 08:35 Temperature Pulse Rate 85 102 H 91 Respiratory Rate 22 H 24 H 24 H Blood Pressure Pulse Oximetry 98 97 Oxygen Delivery High Flow Therapy with Na Nasal Cannula Oxygen Flow Rate 30 3 Fraction of Inspired Oxygen 30 Intake/Output Intake/Output: Intake & Output 07/11/25 07/12/25 07/13/25 07/14/25 23:59 23:59 23:59 23:59 Intake Total 1859.2 300 800 Output Total 425 2100 1950 950 Balance 1434.2 -1800 -1150 -950 Meds/Results Medications: Active Medications Generic Name Dose Route Start Last Admin Trade Name Freq PRN Reason Stop Dose Admin Acetaminophen 650 mg 07/07/25 08:10 07/14/25 08:58 Acetaminophen 325 Mg Tablet PO 650 mg Q4H PRN Administration Mild Pain (1-3) or Fever Acetaminophen 650 mg 07/10/25 17:36 07/10/25 21:18 Acetaminophen 650 Mg Suppository RECTAL 650 mg Q6H PRN Administration Fever Dextrose 12.5 gm 07/10/25 15:08 Dextrose 50% 25 Gm/50 Ml Syringe IV PUSH PRN PRN Hypoglycemia Protocol Enoxaparin Sodium 40 mg 07/08/25 09:00 07/14/25 08:59 Enoxaparin 40 Mg/0.4 Ml Syringe SUB-Q 40 mg DAILY IVONE Administration Furosemide 40 mg 07/08/25 09:00 07/10/25 11:01 Furosemide Inj 40 Mg/4 Ml Vial IV PUSH Not Given On Hold: 07/10/25 15:06 DAILY IVONE Glucagon 1 mg 07/10/25 15:08 Glucagon For Inj 1 Mg Vial IM PRN PRN Hypoglycemia Protocol Glucose 15 gm 07/10/25 15:08 Glucose Oral Gel 15 Gm Of Glucse In 37.5 Gm Tube PO PRN PRN Hypoglycemia Protocol Guaifenesin 1,200 mg 07/07/25 21:00 07/10/25 11:01 Guaifenesin 12 Hr 600 Mg Tabcr PO Not Given On Hold: 07/10/25 15:02 Q12HR IVONE Dextrose 1,000 mls @ 100 mls/hr 07/10/25 15:08 Dextrose 5% 1,000 Ml IVPB PRN PRN Hypoglycemia Protocol Doxycycline Hyclate 100 mg/ 100 mls @ 100 mls/hr 07/10/25 21:00 07/14/25 09:48 Sodium Chloride IVPB 07/15/25 20:59 100 mls/hr Q12H IVONE Administration Cefepime HCl 2 gm/ Sodium 50 mls @ 100 mls/hr 07/11/25 10:20 07/14/25 08:55 Chloride IVPB 100 mls/hr Q12HR IVONE Administration Potassium Chloride 100 mls @ 25 mls/hr 07/14/25 08:09 07/14/25 08:55 Kcl 40 Meq/Water 100 Ml IVPB 07/14/25 12:08 25 mls/hr ONCE ONE Administration Insulin Aspart 3 - 6 units 07/10/25 17:00 07/14/25 08:58 Insulin Aspart (*Bkc) 100 Units/Ml SUB-Q Not Given Q4HR IVONE Protocol Insulin Glargine 10 units 07/12/25 09:00 07/12/25 16:10 Insulin Glargine (*Bkc) 100 Units/Ml SUB-Q Not Given On Hold: 07/13/25 08:23 DAILY IVONE Ipratropium [place] 0.5 mg 07/14/25 08:25 Ipratropium Br 0.02% Inh Soln 0.5 Mg/2.5 Ml Vial INHALATION Q6HRT PRN Wheezing Levalbuterol HCl 0.63 mg 07/14/25 08:25 Levalbuterol Neb 1.25 Mg/3 Ml INHALATION Q6HRT PRN Wheezing Loperamide HCl 2 mg 07/07/25 14:57 Loperamide Hcl 2 Mg Capsule PO On Hold: 07/10/25 15:03 PRN PRN Diarrhea Methylprednisolone Sodium Succinate 10 mg 07/15/25 09:00 Methylprednisolone Sod Succ 40 Mg Vial IV PUSH DAILY IVONE Pantoprazole Sodium 40 mg 07/10/25 15:45 07/14/25 08:59 Pantoprazole Sodium Iv 40 Mg Vial IV PUSH 40 mg QAM IVONE Administration Pramipexole Dihydrochloride 0.5 mg 07/07/25 21:00 07/09/25 20:52 Pramipexole 0.5 Mg Tablet PO 0.5 mg On Hold: 07/10/25 15:03 HS IVONE Administration Pravastatin Sodium 10 mg 07/08/25 09:00 07/10/25 11:02 Pravastatin Sodium 10 Mg Tablet BY MOUTH Not Given On Hold: 07/10/25 15:05 DAILY IVONE Sodium Chloride 20 ml 07/10/25 20:33 Central Line Flush IV PUSH PRN PRN after blood draws Sodium Chloride 10 ml 07/13/25 14:00 07/14/25 05:24 Central Line Flush IV PUSH 10 ml Q8HR IVONE Administration Sodium Chloride 10 ml 07/13/25 08:09 Central Line Flush IV PUSH PRN PRN with TPN bag changes Sodium Chloride 20 ml 07/13/25 08:09 Central Line Flush IV PUSH PRN PRN after blood draws Sotalol HCl 80 mg 07/11/25 10:25 07/12/25 08:45 Sotalol Hcl 80 Mg Tablet PO Not Given On Hold: 07/12/25 13:42 Q12HR IVONE Trimethobenzamide HCl 200 mg 07/07/25 14:56 07/12/25 04:26 Trimethobenzamide Hcl 200 Mg/2 Ml Vial IM 200 mg Q6H PRN Administration Nausea And Vomiting Radiology Results: ITS Impressions Cervical Spine CT 07/07/25 06:30 IMPRESSION: HEAD: 1. No acute intracranial findings. 2. Bilateral mastoiditis. C-SPINE: 1. No acute fracture. 2. Ill-defined fluid and postoperative changes posterior to upper cervical spine. 3. Extensive bilateral upper lung airspace disease, and left pleural effusion. Chest/Abdomen/Pelvis CT 07/07/25 07:13 IMPRESSION: 1. Diffuse lung disease, likely a combination of pneumonia in the upper lobes and left lower lobe and mild pulmonary edema. 2. Small pleural effusions. 3. Colitis involving the rectosigmoid. Head CT 07/10/25 15:36 Impression: 1.No acute intracranial abnormality. Abdomen X-Ray 07/13/25 07:53 IMPRESSION: Multiple loops of dilated small bowel could be associated with ileus; correlate clinically to exclude obstruction. Abdomen/Pelvis CT 07/13/25 13:46 IMPRESSION: 1. Increased size of pleural effusions which are small to moderate compared to small on the previous exam. Bibasilar atelectatic changes with possible developing consolidation and/or vascular congestion. 2. Fluid and gas dilated rectosigmoid region with findings suggestive of mild colitis and diarrhea process. 3. Extraperitoneal findings of uncertain significance possibly associated with the air foci associated with injections. Correlate clinically to exclude active inflammatory/infectious process in the extra peritoneal soft tissues. NG Tube Placement 07/13/25 14:43 IMPRESSION: 1. Fluoroscopy utilized during placement of a nasogastric tube with distal tip in proximal side port in the body the stomach. Chest X-Ray 07/14/25 08:05 IMPRESSION: 1. Interval placement of gastric catheter which appears adequately positioned. Multifocal alveolar changes suggesting pulmonary edema and/or pneumonia similar to the yesterday's exam. Labs Labs: Laboratory Results - last 24 hr 07/13/25 07/13/25 07/13/25 11:47 17:01 20:20 WBC RBC Hgb Hct MCV MCH MCHC RDW Plt Count MPV Immature Gran % (Auto) Neut % (Auto) Lymph % (Auto) Atkinson % (Auto) Eos % (Auto) Baso % (Auto) Lymph # (Auto) Atkinson # (Auto) Eos # (Auto) Baso # (Auto) Abs Immat Gran (auto) Absolute Neuts (auto) Absolute Nucleated RBC Nucleated RBC % Sodium Potassium Chloride Carbon Dioxide Anion Gap BUN Creatinine Estim Creat Clear Calc Estimated GFR Glucose POC Capillary Glucose 221 H 205 H 194 H Calcium Magnesium 07/14/25 07/14/25 07/14/25 00:13 05:21 05:32 WBC 9.8 RBC 3.31 L Hgb 9.4 L Hct 31.2 L MCV 94.3 MCH 28.4 MCHC 30.1 L RDW 20.3 H Plt Count 291 MPV 10.2 Immature Gran % (Auto) 1.0 H Neut % (Auto) 72.8 Lymph % (Auto) 10.8 L Atkinson % (Auto) 15.0 H Eos % (Auto) 0.4 Baso % (Auto) 0.0 L Lymph # (Auto) 1.05 Atkinson # (Auto) 1.5 H Eos # (Auto) 0.0 Baso # (Auto) 0.0 Abs Immat Gran (auto) 0.10 H Absolute Neuts (auto) 7.1 H Absolute Nucleated RBC 0.000 Nucleated RBC % 0.0 Sodium 137 Potassium 3.4 Chloride 99 Carbon Dioxide 36 H Anion Gap 2 L BUN 32 H Creatinine 1.02 H Estim Creat Clear Calc 41 Estimated GFR 53 L Glucose 130 H POC Capillary Glucose 174 H 140 H Calcium 8.7 Magnesium 2.2 07/14/25 08:49 WBC RBC Hgb Hct MCV MCH MCHC RDW Plt Count MPV Immature Gran % (Auto) Neut % (Auto) Lymph % (Auto) Atkinson % (Auto) Eos % (Auto) Baso % (Auto) Lymph # (Auto) Atkinson # (Auto) Eos # (Auto) Baso # (Auto) Abs Immat Gran (auto) Absolute Neuts (auto) Absolute Nucleated RBC Nucleated RBC % Sodium Potassium Chloride Carbon Dioxide Anion Gap BUN Creatinine Estim Creat Clear Calc Estimated GFR Glucose POC Capillary Glucose 154 H Calcium Magnesium
--- NOTE | 2025-07-14 11:12 | PCNFU ---
Nutrition Follow-Up Complete: Increased protein energy needs related to wound healing as evidenced by stage 3 pressure injury Intakes >75% - Not progressing. Continue with same goal Goal: Pt current nutrition is NPO with ice chips. Nutrition recommendation: Advance diet as medically able. Previously on regular diet with Ensure HP BID and Jamar BID for wounds Last recorded weight is 77.3 kg. Bowel Motility: Last BM appears to be 07/11 Labs Reviewed: Hgb 9.4, Hct31.2, GFR 53, BUN 32, Cre 1.02 Glu 130 Meds Noted: Lasix, protonix, Lantus, novolog Skin: Stage 3 sacrum, coccyx Additional Notes: NPO with NGT low intermittent suction s/t ileus. No obstruction seen. Hypoactive bowel sounds. Diet advancement per MD Monitoring intakes, weights, labs, supplement tolerance, skin, plan of care Follow up in 5 days
[2025-07-14 12:17] LABS: Procalcitonin 0.1 ng/mL
[2025-07-14] MEDS: FUROSEMIDE INJ 40 MG/4 ML VIAL IV PUSH (12:49)
--- NOTE | 2025-07-14 13:26 | P.PNGS_ITS ---
Progress Note: A&P Assessment and Plan (1) Ileus: Code(s): K56.7 - Ileus, unspecified Status: Acute Assessment and Plan: Continue NPO except ice chips with nasogastric tube. Follow serial labs, exam, plain films of the abdomen. Should resolve without need for surgical intervention. We will continue to follow. (2) Status post cervical arthrodesis: Code(s): Z98.1 - Arthrodesis status Status: Chronic (3) Pneumonia: Qualifiers: Pneumonia type: due to unspecified organism Laterality: bilateral Lung location: unspecified part of lung Qualified Code(s): J18.9 - Pneumonia, unspecified organism Code(s): J18.9 - Pneumonia, unspecified organism Status: Acute Subjective Subjective Date/Time Seen: 07/14/25 13:26 Patient reports: pain is less ( Still having some mid abdominal pain that waxes and wanes.), no flatus, no bowel movement and afebrile Interval history: Nasogastric tube was able to be placed and radiology under fluoroscopy yesterday. Has been draining well. Review of Systems Review of Systems: All systems reviewed & are unremarkable except as noted in HPI and below ( HPI) Exam Const: General: cooperative, comfortable and awake Orientation/consciousness: No confusion GI: Inspection: no abdominal wall ecchymosis, distended and no visible herniation GI Palp: Yes Soft to palpation, Yes Tenderness to palpation present (GI) ( mild, nonfocal tenderness), No Guarding due to palpation present (GI), No Hernia present, No Palpable mass present and No Rebound tenderness present Auscultation: absent bowel sounds Objective Data Vital Signs Vital Signs: Vital Signs - 24 hr 07/13/25 14:00 07/13/25 14:40 07/13/25 14:40 Temperature Pulse Rate 112 H 119 H 119 H Respiratory Rate 24 H 26 H Blood Pressure Pulse Oximetry 97 Oxygen Delivery High Flow Therapy with Na Oxygen Flow Rate 45 Fraction of Inspired Oxygen 45 07/13/25 14:54 07/13/25 15:00 07/13/25 15:51 Temperature Pulse Rate 109 H 84 Respiratory Rate 17 22 H Blood Pressure 133/96 H Pulse Oximetry 99 100 Oxygen Delivery High Flow Therapy with Na Oxygen Flow Rate 45 Fraction of Inspired Oxygen 45 07/13/25 16:00 07/13/25 16:00 07/13/25 17:00 Temperature 37.0 C Pulse Rate 104 H 97 81 Respiratory Rate 22 H 20 Blood Pressure 123/92 H 116/79 Pulse Oximetry 99 100 Oxygen Delivery Oxygen Flow Rate Fraction of Inspired Oxygen 07/13/25 18:00 07/13/25 18:00 07/13/25 19:00 Temperature Pulse Rate 108 H 125 H 100 Respiratory Rate 23 H 20 Blood Pressure 141/81 H 110/80 Pulse Oximetry 100 99 Oxygen Delivery Oxygen Flow Rate Fraction of Inspired Oxygen 07/13/25 20:00 07/13/25 20:00 07/13/25 20:00 Temperature 36.9 C Pulse Rate 84 126 H 126 H Respiratory Rate 20 22 H Blood Pressure 124/89 Pulse Oximetry 100 99 Oxygen Delivery High Flow Therapy with Na Oxygen Flow Rate 45 Fraction of Inspired Oxygen 45 07/13/25 20:00 07/13/25 20:10 07/13/25 21:00 Temperature Pulse Rate 89 83 76 Respiratory Rate 21 H 21 H 20 Blood Pressure 124/63 Pulse Oximetry 100 Oxygen Delivery Oxygen Flow Rate Fraction of Inspired Oxygen 07/13/25 22:00 07/13/25 22:00 07/13/25 23:00 Temperature 37.1 C 37.0 C Pulse Rate 84 82 95 Respiratory Rate 20 20 Blood Pressure 112/70 95/77 L Pulse Oximetry 98 100 Oxygen Delivery Oxygen Flow Rate Fraction of Inspired Oxygen 07/14/25 00:00 07/14/25 00:00 07/14/25 00:00 Temperature 36.9 C Pulse Rate 86 82 82 Respiratory Rate 20 21 H Blood Pressure 115/64 Pulse Oximetry 98 99 Oxygen Delivery High Flow Therapy with Na Oxygen Flow Rate 45 Fraction of Inspired Oxygen 45 07/14/25 01:00 07/14/25 01:53 07/14/25 02:00 Temperature 37.1 C Pulse Rate 86 89 92 Respiratory Rate 20 21 H Blood Pressure 136/78 Pulse Oximetry 97 98 Oxygen Delivery High Flow Therapy with Na Oxygen Flow Rate 45 Fraction of Inspired Oxygen 45 07/14/25 02:00 07/14/25 02:49 07/14/25 02:58 Temperature 36.9 C Pulse Rate 90 82 Respiratory Rate 18 24 H Blood Pressure 121/84 Pulse Oximetry 98 97 Oxygen Delivery High Flow Therapy with Na Oxygen Flow Rate 35 Fraction of Inspired Oxygen 40 07/14/25 03:00 07/14/25 04:00 07/14/25 04:00 Temperature 37.0 C Pulse Rate 97 111 H 111 H Respiratory Rate 17 17 Blood Pressure 132/89 Pulse Oximetry 96 99 Oxygen Delivery High Flow Therapy with Na Oxygen Flow Rate 35 Fraction of Inspired Oxygen 40 07/14/25 04:00 07/14/25 05:00 07/14/25 06:00 Temperature 37.0 C Pulse Rate 97 94 68 Respiratory Rate 18 28 H Blood Pressure 130/86 104/57 L Pulse Oximetry 96 97 Oxygen Delivery Oxygen Flow Rate Fraction of Inspired Oxygen 07/14/25 06:00 07/14/25 07:00 07/14/25 08:00 Temperature 37.1 C 36.9 C Pulse Rate 83 81 82 Respiratory Rate 22 H 22 H Blood Pressure 106/66 121/69 Pulse Oximetry 98 98 Oxygen Delivery Oxygen Flow Rate Fraction of Inspired Oxygen 07/14/25 08:00 07/14/25 08:00 07/14/25 08:04 Temperature 36.9 C Pulse Rate 98 89 81 Respiratory Rate 21 H 20 22 H Blood Pressure 115/81 Pulse Oximetry 87 L 98 99 Oxygen Delivery Nasal Cannula High Flow Therapy with Na Oxygen Flow Rate 3 35 Fraction of Inspired Oxygen 40 07/14/25 08:04 07/14/25 08:15 07/14/25 08:29 Temperature Pulse Rate 81 85 102 H Respiratory Rate 22 H 22 H 24 H Blood Pressure Pulse Oximetry 98 Oxygen Delivery High Flow Therapy with Na Oxygen Flow Rate 30 Fraction of Inspired Oxygen 30 07/14/25 08:35 07/14/25 09:00 07/14/25 10:00 Temperature 36.9 C Pulse Rate 91 64 109 H Respiratory Rate 24 H 22 H Blood Pressure 115/58 L Pulse Oximetry 97 94 Oxygen Delivery Nasal Cannula Oxygen Flow Rate 3 Fraction of Inspired Oxygen 07/14/25 10:00 07/14/25 11:00 07/14/25 12:16 Temperature 37.2 C 37.2 C Pulse Rate 61 62 102 H Respiratory Rate 21 H 19 20 Blood Pressure 111/60 112/63 Pulse Oximetry 99 99 95 Oxygen Delivery Nasal Cannula Oxygen Flow Rate 3 Fraction of Inspired Oxygen Intake/Output Intake/Output: Intake & Output 07/11/25 07/12/25 07/13/25 07/14/25 23:59 23:59 23:59 23:59 Intake Total 1859.2 300 800 150 Output Total 425 2100 1950 1150 Balance 1434.2 -1800 -1150 -1000 Meds/Results Medications: Active Medications Generic Name Dose Route Start Last Admin Trade Name Freq PRN Reason Stop Dose Admin Acetaminophen 650 mg 07/07/25 08:10 07/14/25 08:58 Acetaminophen 325 Mg Tablet PO 650 mg Q4H PRN Administration Mild Pain (1-3) or Fever Acetaminophen 650 mg 07/10/25 17:36 07/10/25 21:18 Acetaminophen 650 Mg Suppository RECTAL 650 mg Q6H PRN Administration Fever Dextrose 12.5 gm 07/10/25 15:08 Dextrose 50% 25 Gm/50 Ml Syringe IV PUSH PRN PRN Hypoglycemia Protocol Enoxaparin Sodium 40 mg 07/08/25 09:00 07/14/25 08:59 Enoxaparin 40 Mg/0.4 Ml Syringe SUB-Q 40 mg DAILY IVONE Administration Furosemide 40 mg 07/08/25 09:00 07/10/25 11:01 Furosemide Inj 40 Mg/4 Ml Vial IV PUSH Not Given On Hold: 07/10/25 15:06 DAILY IOVNE Glucagon 1 mg 07/10/25 15:08 Glucagon For Inj 1 Mg Vial IM PRN PRN Hypoglycemia Protocol Glucose 15 gm 07/10/25 15:08 Glucose Oral Gel 15 Gm Of Glucse In 37.5 Gm Tube PO PRN PRN Hypoglycemia Protocol Guaifenesin 1,200 mg 07/07/25 21:00 07/10/25 11:01 Guaifenesin 12 Hr 600 Mg Tabcr PO Not Given On Hold: 07/10/25 15:02 Q12HR IVONE Dextrose 1,000 mls @ 100 mls/hr 07/10/25 15:08 Dextrose 5% 1,000 Ml IVPB PRN PRN Hypoglycemia Protocol Doxycycline Hyclate 100 mg/ 100 mls @ 100 mls/hr 07/10/25 21:00 07/14/25 11:00 Sodium Chloride IVPB 07/15/25 20:59 Infused Q12H IVONE Infusion Cefepime HCl 2 gm/ Sodium 50 mls @ 100 mls/hr 07/11/25 10:20 07/14/25 09:30 Chloride IVPB Infused Q12HR IVONE Infusion Insulin Aspart 3 - 6 units 07/10/25 17:00 07/14/25 12:28 Insulin Aspart (*Bkc) 100 Units/Ml SUB-Q Not Given Q4HR [facility] Protocol Insulin Glargine 10 units 07/12/25 09:00 07/12/25 16:10 Insulin Glargine (*Bkc) 100 Units/Ml SUB-Q Not Given On Hold: 07/13/25 08:23 DAILY IVONE Ipratropium [place] 0.5 mg 07/14/25 08:25 Ipratropium Br 0.02% Inh Soln 0.5 Mg/2.5 Ml Vial INHALATION Q6HRT PRN Wheezing Levalbuterol HCl 0.63 mg 07/14/25 08:25 Levalbuterol Neb 1.25 Mg/3 Ml INHALATION Q6HRT PRN Wheezing Loperamide HCl 2 mg 07/07/25 14:57 Loperamide Hcl 2 Mg Capsule PO On Hold: 07/10/25 15:03 PRN PRN Diarrhea Methylprednisolone Sodium Succinate 10 mg 07/15/25 09:00 Methylprednisolone Sod Succ 40 Mg Vial IV PUSH DAILY IVONE Pantoprazole Sodium 40 mg 07/10/25 15:45 07/14/25 08:59 Pantoprazole Sodium Iv 40 Mg Vial IV PUSH 40 mg QAM IVONE Administration Phenol 1 spray 07/14/25 10:47 Phenol/Sod Pheno [place] (*Bkc) MUCOUS MEM PRN PRN Sore Throat Pramipexole Dihydrochloride 0.5 mg 07/07/25 21:00 07/09/25 20:52 Pramipexole 0.5 Mg Tablet PO 0.5 mg On Hold: 07/10/25 15:03 HS IVONE Administration Pravastatin Sodium 10 mg 07/08/25 09:00 07/10/25 11:02 Pravastatin Sodium 10 Mg Tablet BY MOUTH Not Given On Hold: 07/10/25 15:05 DAILY IVONE Sodium Chloride 20 ml 07/10/25 20:33 Central Line Flush IV PUSH PRN PRN after blood draws Sodium Chloride 10 ml 07/13/25 14:00 07/14/25 12:49 Central Line Flush IV PUSH 10 ml Q8HR IVONE Administration Sodium Chloride 10 ml 07/13/25 08:09 Central Line Flush IV PUSH PRN PRN with TPN bag changes Sodium Chloride 20 ml 07/13/25 08:09 Central Line Flush IV PUSH PRN PRN after blood draws Sotalol HCl 80 mg 07/11/25 10:25 07/12/25 08:45 Sotalol Hcl 80 Mg Tablet PO Not Given On Hold: 07/12/25 13:42 Q12HR IVONE Trimethobenzamide HCl 200 mg 07/07/25 14:56 07/12/25 04:26 Trimethobenzamide Hcl 200 Mg/2 Ml Vial IM 200 mg Q6H PRN Administration Nausea And Vomiting Radiology Results: ITS Impressions Cervical Spine CT 07/07/25 06:30 IMPRESSION: HEAD: 1. No acute intracranial findings. 2. Bilateral mastoiditis. C-SPINE: 1. No acute fracture. 2. Ill-defined fluid and postoperative changes posterior to upper cervical spine. 3. Extensive bilateral upper lung airspace disease, and left pleural effusion. Chest/Abdomen/Pelvis CT 07/07/25 07:13 IMPRESSION: 1. Diffuse lung disease, likely a combination of pneumonia in the upper lobes and left lower lobe and mild pulmonary edema. 2. Small pleural effusions. 3. Colitis involving the rectosigmoid. Head CT 07/10/25 15:36 Impression: 1.No acute intracranial abnormality. Abdomen X-Ray 07/13/25 07:53 IMPRESSION: Multiple loops of dilated small bowel could be associated with ileus; correlate clinically to exclude obstruction. Abdomen/Pelvis CT 07/13/25 13:46 IMPRESSION: 1. Increased size of pleural effusions which are small to moderate compared to small on the previous exam. Bibasilar atelectatic changes with possible developing consolidation and/or vascular congestion. 2. Fluid and gas dilated rectosigmoid region with findings suggestive of mild colitis and diarrhea process. 3. Extraperitoneal findings of uncertain significance possibly associated with the air foci associated with injections. Correlate clinically to exclude active inflammatory/infectious process in the extra peritoneal soft tissues. NG Tube Placement 07/13/25 14:43 IMPRESSION: 1. Fluoroscopy utilized during placement of a nasogastric tube with distal tip in proximal side port in the body the stomach. Chest X-Ray 07/14/25 08:05 IMPRESSION: 1. Interval placement of gastric catheter which appears adequately positioned. Multifocal alveolar changes suggesting pulmonary edema and/or pneumonia similar to the yesterday's exam. Labs Labs: Laboratory Results - last 24 hr 07/13/25 07/13/25 07/14/25 17:01 20:20 00:13 WBC RBC Hgb Hct MCV MCH MCHC RDW Plt Count MPV Immature Gran % (Auto) Neut % (Auto) Lymph % (Auto) [place] % (Auto) Eos % (Auto) Baso % (Auto) Lymph # (Auto) [place] # (Auto) Eos # (Auto) Baso # (Auto) Abs Immat Gran (auto) Absolute Neuts (auto) Absolute Nucleated RBC Nucleated RBC % Sodium Potassium Chloride Carbon Dioxide Anion Gap BUN Creatinine Estim Creat Clear Calc Estimated GFR Glucose POC Capillary Glucose 205 H 194 H 174 H Calcium Magnesium Procalcitonin 07/14/25 07/14/25 07/14/25 05:21 05:32 08:49 WBC 9.8 RBC 3.31 L Hgb 9.4 L Hct 31.2 L MCV 94.3 MCH 28.4 MCHC 30.1 L RDW 20.3 H Plt Count 291 MPV 10.2 Immature Gran % (Auto) 1.0 H Neut % (Auto) 72.8 Lymph % (Auto) 10.8 L [place] % (Auto) 15.0 H Eos % (Auto) 0.4 Baso % (Auto) 0.0 L Lymph # (Auto) 1.05 [place] # (Auto) 1.5 H Eos # (Auto) 0.0 Baso # (Auto) 0.0 Abs Immat Gran (auto) 0.10 H Absolute Neuts (auto) 7.1 H Absolute Nucleated RBC 0.000 Nucleated RBC % 0.0 Sodium 137 Potassium 3.4 Chloride 99 Carbon Dioxide 36 H Anion Gap 2 L BUN 32 H Creatinine 1.02 H Estim Creat Clear Calc 41 Estimated GFR 53 L Glucose 130 H POC Capillary Glucose 140 H 154 H Calcium 8.7 Magnesium 2.2 Procalcitonin 07/14/25 07/14/25 11:00 12:20 WBC RBC Hgb Hct MCV MCH MCHC RDW Plt Count MPV Immature Gran % (Auto) Neut % (Auto) Lymph % (Auto) [place] % (Auto) Eos % (Auto) Baso % (Auto) Lymph # (Auto) [place] # (Auto) Eos # (Auto) Baso # (Auto) Abs Immat Gran (auto) Absolute Neuts (auto) Absolute Nucleated RBC Nucleated RBC % Sodium Potassium Chloride Carbon Dioxide Anion Gap BUN Creatinine Estim Creat Clear Calc Estimated GFR Glucose POC Capillary Glucose 176 H Calcium Magnesium Procalcitonin 0.1 Imaging Attestation: I personally reviewed and interpreted this imaging study as follows: ( chest x-ray from this morning) My impression: nasogastric tube in good position, dilated loops of bowel in the upper abdomen again noted. Radiologist's impression:
--- NOTE | 2025-07-14 16:09 | P.PNGI_ITS ---
Progress Note: A&P Assessment and Plan (1) Ileus: Code(s): K56.7 - Ileus, unspecified Status: Acute Assessment and Plan: ngt placed yesterday CT scan reviewed, no obstruction ileus is multifactorial- pneumonia, respiratory failure, pain meds, recent neck intervention, etc continue medical management surgery team on board (2) Pneumonia: Qualifiers: Laterality: bilateral Lung location: unspecified part of lung Pneumonia type: due to unspecified organism Qualified Code(s): J18.9 - Pneumonia, unspecified organism Code(s): J18.9 - Pneumonia, unspecified organism Status: Acute (3) Acute exacerbation of chronic obstructive pulmonary disease: Code(s): J44.1 - Chronic obstructive pulmonary disease with (acute) exacerbation Status: Acute (4) Acute on chronic hypoxic respiratory failure: Code(s): J96.21 - Acute and chronic respiratory failure with hypoxia Status: Acute (5) Status post cervical arthrodesis: Code(s): Z98.1 - Arthrodesis status Status: Chronic Subjective Date/time seen: 07/14/25 16:09 Interval history: ngt placed yesterday, still not passing gas for 3 days no major changes she is lying in bed, c-collar in position at bedside intermittent abdominal discomfort unchanged Review of Systems Review of Systems: All systems reviewed & are unremarkable except as noted in HPI and below Exam Const: General: cooperative, comfortable and awake Other: chronically ill appearing HENMT: Face/Nose/Sinus: Normal nares present Eyes: Sclera: sclerae normal Neck: Other: c-collar Resp: Auscultation: rales Cardio: Rate: regular rate GI: Inspection: distended and no visible herniation GI Palp: Yes Soft to palpation, Yes Tenderness to palpation present (GI) ( mild, nonfocal tenderness), No Guarding due to palpation present (GI) and No Rebound tenderness present Auscultation: absent bowel sounds Skin: General skin exam: normal color Neuro: Speech: normal speech Extrem: General: normal to inspection Psych: Affect: No Hostile affect present Objective Data Vital Signs Vital Signs: Vital Signs - 24 hr 07/13/25 17:00 07/13/25 18:00 07/13/25 18:00 Temperature 98.6 F Pulse Rate 81 108 H 125 H Respiratory Rate 20 23 H Blood Pressure 116/79 141/81 H Pulse Oximetry 100 100 Oxygen Delivery Oxygen Flow Rate Fraction of Inspired Oxygen 07/13/25 19:00 07/13/25 20:00 07/13/25 20:00 Temperature Pulse Rate 100 84 126 H Respiratory Rate 20 20 Blood Pressure 110/80 Pulse Oximetry 99 100 Oxygen Delivery High Flow Therapy with Na Oxygen Flow Rate 45 Fraction of Inspired Oxygen 45 07/13/25 20:00 07/13/25 20:00 07/13/25 20:10 Temperature 98.5 F Pulse Rate 126 H 89 83 Respiratory Rate 22 H 21 H 21 H Blood Pressure 124/89 Pulse Oximetry 99 Oxygen Delivery Oxygen Flow Rate Fraction of Inspired Oxygen 07/13/25 21:00 07/13/25 22:00 07/13/25 22:00 Temperature 98.8 F Pulse Rate 76 84 82 Respiratory Rate 20 20 Blood Pressure 124/63 112/70 Pulse Oximetry 100 98 Oxygen Delivery Oxygen Flow Rate Fraction of Inspired Oxygen 07/13/25 23:00 07/14/25 00:00 07/14/25 00:00 Temperature 98.6 F Pulse Rate 95 86 82 Respiratory Rate 20 20 Blood Pressure 95/77 L Pulse Oximetry 100 98 Oxygen Delivery High Flow Therapy with Na Oxygen Flow Rate 45 Fraction of Inspired Oxygen 45 07/14/25 00:00 07/14/25 01:00 07/14/25 01:53 Temperature 98.5 F 98.8 F Pulse Rate 82 86 89 Respiratory Rate 21 H 20 21 H Blood Pressure 115/64 136/78 Pulse Oximetry 99 97 98 Oxygen Delivery High Flow Therapy with Na Oxygen Flow Rate 45 Fraction of Inspired Oxygen 45 07/14/25 02:00 07/14/25 02:00 07/14/25 02:49 Temperature 98.4 F Pulse Rate 92 90 82 Respiratory Rate 18 24 H Blood Pressure 121/84 Pulse Oximetry 98 Oxygen Delivery Oxygen Flow Rate Fraction of Inspired Oxygen 07/14/25 02:58 07/14/25 03:00 07/14/25 04:00 Temperature 98.6 F Pulse Rate 97 111 H Respiratory Rate 17 17 Blood Pressure 132/89 Pulse Oximetry 97 96 99 Oxygen Delivery High Flow Therapy with Na High Flow Therapy with Na Oxygen Flow Rate 35 35 Fraction of Inspired Oxygen 40 40 07/14/25 04:00 07/14/25 04:00 07/14/25 05:00 Temperature 98.6 F Pulse Rate 111 H 97 94 Respiratory Rate 18 28 H Blood Pressure 130/86 104/57 L Pulse Oximetry 96 97 Oxygen Delivery Oxygen Flow Rate Fraction of Inspired Oxygen 07/14/25 06:00 07/14/25 06:00 07/14/25 07:00 Temperature 98.8 F 98.5 F Pulse Rate 68 83 81 Respiratory Rate 22 H 22 H Blood Pressure 106/66 121/69 Pulse Oximetry 98 98 Oxygen Delivery Oxygen Flow Rate Fraction of Inspired Oxygen 07/14/25 08:00 07/14/25 08:00 07/14/25 08:00 Temperature 98.4 F Pulse Rate 82 98 89 Respiratory Rate 21 H 20 Blood Pressure 115/81 Pulse Oximetry 87 L 98 Oxygen Delivery Nasal Cannula Oxygen Flow Rate 3 Fraction of Inspired Oxygen 07/14/25 08:04 07/14/25 08:04 07/14/25 08:15 Temperature Pulse Rate 81 81 85 Respiratory Rate 22 H 22 H 22 H Blood Pressure Pulse Oximetry 99 Oxygen Delivery High Flow Therapy with Na Oxygen Flow Rate 35 Fraction of Inspired Oxygen 40 07/14/25 08:29 07/14/25 08:35 07/14/25 09:00 Temperature 98.5 F Pulse Rate 102 H 91 64 Respiratory Rate 24 H 24 H 22 H Blood Pressure 115/58 L Pulse Oximetry 98 97 94 Oxygen Delivery High Flow Therapy with Na Nasal Cannula Oxygen Flow Rate 30 3 Fraction of Inspired Oxygen 30 07/14/25 10:00 07/14/25 10:00 07/14/25 11:00 Temperature 98.9 F 99 F Pulse Rate 109 H 61 62 Respiratory Rate 21 H 19 Blood Pressure 111/60 112/63 Pulse Oximetry 99 99 Oxygen Delivery Oxygen Flow Rate Fraction of Inspired Oxygen 07/14/25 12:00 07/14/25 12:00 07/14/25 12:00 Temperature 98.6 F Pulse Rate 104 H 105 H Respiratory Rate 24 H Blood Pressure Pulse Oximetry 96 95 Oxygen Delivery Nasal Cannula Oxygen Flow Rate 3 Fraction of Inspired Oxygen 07/14/25 12:16 07/14/25 13:00 07/14/25 14:00 Temperature 98.6 F Pulse Rate 102 H 105 H 108 H Respiratory Rate 20 24 H Blood Pressure 137/82 Pulse Oximetry 95 95 Oxygen Delivery Nasal Cannula Oxygen Flow Rate 3 Fraction of Inspired Oxygen 07/14/25 14:00 07/14/25 15:00 Temperature 98.6 F 98.6 F Pulse Rate 105 H 110 H Respiratory Rate 22 H 24 H Blood Pressure 124/69 128/89 Pulse Oximetry 96 96 Oxygen Delivery Oxygen Flow Rate Fraction of Inspired Oxygen Intake/Output Intake/Output: Intake & Output 07/11/25 07/12/25 07/13/25 07/14/25 23:59 23:59 23:59 23:59 Intake Total 1859.2 300 800 150 Output Total 425 2100 1950 1150 Balance 1434.2 -1800 -8660 -1000 Meds/Results Medications: Active Medications Generic Name Dose Route Start Last Admin Trade Name Freq PRN Reason Stop Dose Admin Acetaminophen 650 mg 07/07/25 08:10 07/14/25 08:58 Acetaminophen 325 Mg Tablet PO 650 mg Q4H PRN Administration Mild Pain (1-3) or Fever Acetaminophen 650 mg 07/10/25 17:36 07/10/25 21:18 Acetaminophen 650 Mg Suppository RECTAL 650 mg Q6H PRN Administration Fever Dextrose 12.5 gm 07/10/25 15:08 Dextrose 50% 25 Gm/50 Ml Syringe IV PUSH PRN PRN Hypoglycemia Protocol Enoxaparin Sodium 40 mg 07/08/25 09:00 07/14/25 08:59 Enoxaparin 40 Mg/0.4 Ml Syringe SUB-Q 40 mg DAILY IVONE Administration Furosemide 40 mg 07/08/25 09:00 07/10/25 11:01 Furosemide Inj 40 Mg/4 Ml Vial IV PUSH Not Given On Hold: 07/10/25 15:06 DAILY IVONE Glucagon 1 mg 07/10/25 15:08 Glucagon For Inj 1 Mg Vial IM PRN PRN Hypoglycemia Protocol Glucose 15 gm 07/10/25 15:08 Glucose Oral Gel 15 Gm Of Glucse In 37.5 Gm Tube PO PRN PRN Hypoglycemia Protocol Guaifenesin 1,200 mg 07/07/25 21:00 07/10/25 11:01 Guaifenesin 12 Hr 600 Mg Tabcr PO Not Given On Hold: 07/10/25 15:02 Q12HR IVONE Dextrose 1,000 mls @ 100 mls/hr 07/10/25 15:08 Dextrose 5% 1,000 Ml IVPB PRN PRN Hypoglycemia Protocol Doxycycline Hyclate 100 mg/ 100 mls @ 100 mls/hr 07/10/25 21:00 07/14/25 11:00 Sodium Chloride IVPB 07/15/25 20:59 Infused Q12H [facility] Infusion Cefepime HCl 2 gm/ Sodium 50 mls @ 100 mls/hr 07/11/25 10:20 07/14/25 09:30 Chloride IVPB Infused Q12HR [facility] Infusion Insulin Aspart 3 - 6 units 07/10/25 17:00 07/14/25 12:28 Insulin Aspart (*Bkc) 100 Units/Ml SUB-Q Not Given Q4HR [facility] Protocol Insulin Glargine 10 units 07/12/25 09:00 07/12/25 16:10 Insulin Glargine (*Bkc) 100 Units/Ml SUB-Q Not Given On Hold: 07/13/25 08:23 DAILY IVONE Ipratropium [place] 0.5 mg 07/14/25 08:25 Ipratropium Br 0.02% Inh Soln 0.5 Mg/2.5 Ml Vial INHALATION Q6HRT PRN Wheezing Levalbuterol HCl 0.63 mg 07/14/25 08:25 Levalbuterol Neb 1.25 Mg/3 Ml INHALATION Q6HRT PRN Wheezing Loperamide HCl 2 mg 07/07/25 14:57 Loperamide Hcl 2 Mg Capsule PO On Hold: 07/10/25 15:03 PRN PRN Diarrhea Methylprednisolone Sodium Succinate 10 mg 07/15/25 09:00 Methylprednisolone Sod Succ 40 Mg Vial IV PUSH DAILY IVONE Pantoprazole Sodium 40 mg 07/10/25 15:45 07/14/25 08:59 Pantoprazole Sodium Iv 40 Mg Vial IV PUSH 40 mg QAM [facility] Administration Phenol 1 spray 07/14/25 10:47 Phenol/Sod Pheno [place] (*Bkc) MUCOUS MEM PRN PRN Sore Throat Pramipexole Dihydrochloride 0.5 mg 07/07/25 21:00 07/09/25 20:52 Pramipexole 0.5 Mg Tablet PO 0.5 mg On Hold: 07/10/25 15:03 HS IVONE Administration Pravastatin Sodium 10 mg 07/08/25 09:00 07/10/25 11:02 Pravastatin Sodium 10 Mg Tablet BY MOUTH Not Given On Hold: 07/10/25 15:05 DAILY IVONE Sodium Chloride 20 ml 07/10/25 20:33 Central Line Flush IV PUSH PRN PRN after blood draws Sodium Chloride 10 ml 07/13/25 14:00 07/14/25 12:49 Central Line Flush IV PUSH 10 ml Q8HR IVONE Administration Sodium Chloride 10 ml 07/13/25 08:09 Central Line Flush IV PUSH PRN PRN with TPN bag changes Sodium Chloride 20 ml 07/13/25 08:09 Central Line Flush IV PUSH PRN PRN after blood draws Sotalol HCl 80 mg 07/11/25 10:25 07/12/25 08:45 Sotalol Hcl 80 Mg Tablet PO Not Given On Hold: 07/12/25 13:42 Q12HR IVONE Trimethobenzamide HCl 200 mg 07/07/25 14:56 07/12/25 04:26 Trimethobenzamide Hcl 200 Mg/2 Ml Vial IM 200 mg Q6H PRN Administration Nausea And Vomiting Radiology Results: ITS Impressions Cervical Spine CT 07/07/25 06:30 IMPRESSION: HEAD: 1. No acute intracranial findings. 2. Bilateral mastoiditis. C-SPINE: 1. No acute fracture. 2. Ill-defined fluid and postoperative changes posterior to upper cervical spine. 3. Extensive bilateral upper lung airspace disease, and left pleural effusion. Chest/Abdomen/Pelvis CT 07/07/25 07:13 IMPRESSION: 1. Diffuse lung disease, likely a combination of pneumonia in the upper lobes and left lower lobe and mild pulmonary edema. 2. Small pleural effusions. 3. Colitis involving the rectosigmoid. Head CT 07/10/25 15:36 Impression: 1.No acute intracranial abnormality. Abdomen X-Ray 07/13/25 07:53 IMPRESSION: Multiple loops of dilated small bowel could be associated with ileus; correlate clinically to exclude obstruction. Abdomen/Pelvis CT 07/13/25 13:46 IMPRESSION: 1. Increased size of pleural effusions which are small to moderate compared to small on the previous exam. Bibasilar atelectatic changes with possible developing consolidation and/or vascular congestion. 2. Fluid and gas dilated rectosigmoid region with findings suggestive of mild colitis and diarrhea process. 3. Extraperitoneal findings of uncertain significance possibly associated with the air foci associated with injections. Correlate clinically to exclude active inflammatory/infectious process in the extra peritoneal soft tissues. NG Tube Placement 07/13/25 14:43 IMPRESSION: 1. Fluoroscopy utilized during placement of a nasogastric tube with distal tip in proximal side port in the body the stomach. Chest X-Ray 07/14/25 08:05 IMPRESSION: 1. Interval placement of gastric catheter which appears adequately positioned. Multifocal alveolar changes suggesting pulmonary edema and/or pneumonia similar to the yesterday's exam. Labs Labs: Laboratory Results - last 24 hr 07/13/25 07/13/25 07/14/25 17:01 20:20 00:13 WBC RBC Hgb Hct MCV MCH MCHC RDW Plt Count MPV Immature Gran % (Auto) Neut % (Auto) Lymph % (Auto) [place] % (Auto) Eos % (Auto) Baso % (Auto) Lymph # (Auto) [place] # (Auto) Eos # (Auto) Baso # (Auto) Abs Immat Gran (auto) Absolute Neuts (auto) Absolute Nucleated RBC Nucleated RBC % Sodium Potassium Chloride Carbon Dioxide Anion Gap BUN Creatinine Estim Creat Clear Calc Estimated GFR Glucose POC Capillary Glucose 205 H 194 H 174 H Calcium Magnesium Procalcitonin 07/14/25 07/14/25 07/14/25 05:21 05:32 08:49 WBC 9.8 RBC 3.31 L Hgb 9.4 L Hct 31.2 L MCV 94.3 MCH 28.4 MCHC 30.1 L RDW 20.3 H Plt Count 291 MPV 10.2 Immature Gran % (Auto) 1.0 H Neut % (Auto) 72.8 Lymph % (Auto) 10.8 L [place] % (Auto) 15.0 H Eos % (Auto) 0.4 Baso % (Auto) 0.0 L Lymph # (Auto) 1.05 [place] # (Auto) 1.5 H Eos # (Auto) 0.0 Baso # (Auto) 0.0 Abs Immat Gran (auto) 0.10 H Absolute Neuts (auto) 7.1 H Absolute Nucleated RBC 0.000 Nucleated RBC % 0.0 Sodium 137 Potassium 3.4 Chloride 99 Carbon Dioxide 36 H Anion Gap 2 L BUN 32 H Creatinine 1.02 H Estim Creat Clear Calc 41 Estimated GFR 53 L Glucose 130 H POC Capillary Glucose 140 H 154 H Calcium 8.7 Magnesium 2.2 Procalcitonin 07/14/25 07/14/25 11:00 12:20 WBC RBC Hgb Hct MCV MCH MCHC RDW Plt Count MPV Immature Gran % (Auto) Neut % (Auto) Lymph % (Auto) [place] % (Auto) Eos % (Auto) Baso % (Auto) Lymph # (Auto) [place] # (Auto) Eos # (Auto) Baso # (Auto) Abs Immat Gran (auto) Absolute Neuts (auto) Absolute Nucleated RBC Nucleated RBC % Sodium Potassium Chloride Carbon Dioxide Anion Gap BUN Creatinine Estim Creat Clear Calc Estimated GFR Glucose POC Capillary Glucose 176 H Calcium Magnesium Procalcitonin 0.1
[2025-07-14] MEDS: INSULIN ASPART (*BKC) 100 UNITS/ML SUB-Q (16:28)
[2025-07-14 17:14] LABS: Anion Gap 5 mmol/L (4-12); Blood Urea Nitrogen 30 mg/dL (7-17); Calcium 9.0 mg/dL (8.4-10.2); Carbon Dioxide 32 mmol/L (22-30); Chloride 100 mmol/L (98-107); Estimated CRCL calculation 43 ml/min; Estimated Glomerular Filt Rate 57; Glucose 188 mg/dL (65-110); Potassium 3.6 mmol/L (3.4-5.0); Sodium 137 mmol/L (137-145)
[2025-07-14] MEDS: METOPROLOL TARTRATE INJ 5 MG/5 ML VIAL IV PUSH (21:21)
[2025-07-15] VITALS (33 sets, daily range): BP systolic 107–166; BP diastolic 50–110; PULSE 66–172; RESP 13–28; TEMP 36.9–37.4; O2SAT 93–99
--- NOTE | 2025-07-15 00:50 | ECG_ITS ---
Test Date: 2025-07-15 00:57:45 Measurements Intervals [place] Rate: 131 P: 0 GA: 0 QRS: -5 QRSD: 147 T: 28 QT: 348 QTc: 515 Interpretive Statements ATRIAL FIBRILLATION WITH RAPID VENTRICULAR RESPONSE WITH ABERRANT CONDUCTION OR VENTRICULAR PREMATURE COMPLEXES RIGHT BUNDLE BRANCH BLOCK Electronically Signed On 07-15-2025 10:54:42 [employer] by Stewart Zamora D.O
[2025-07-15] MEDS: dilTIAZem 100 MG/100 ML 100 MG/100 ML BAG IV CONT (01:19)
--- NOTE | 2025-07-15 01:25 | PC.NURSE ---
Patient's heart rate in the 130s to 170s. EKG obtained confirming patient to be in Afib with RVR. Dr. Schrader notified and orders received for 20 mg IV push Diltiazem and initiation of a Diltiazem drip with a goal to maintain heart rate of less than 120. Patient asymptomatic at this time.
[2025-07-15 04:56] LABS: Hematocrit 32.0 % (37.0-47.0); Hemoglobin 9.5 g/dL (12.0-15.0); Mean Corpuscular HGB Conc 29.7 g/dl (32-36); Mean Corpuscular Hemoglobin 28.3 pg (26-34); Mean Corpuscular Volume 95.2 fl (80-100); Platelet Count Result 299 k/mm3 (150-375); Red Blood Count 3.36 M/mm3 (4.2-5.4); White Blood Count 10.9 K/mm3 (4.5-10.0)
[2025-07-15 05:15] LABS: Alanine Aminotransferase 17 U/L (6-35); Albumin Level 3.2 g/dL (3.5-5.1); Alkaline Phosphatase 161 U/L (38-126); Anion Gap 6 mmol/L (4-12); Aspartate Amino Transferase 20 U/L (14-36); Bilirubin,Total 0.6 mg/dL (0.2-1.3); Blood Urea Nitrogen 30 mg/dL (7-17); Calcium 9.0 mg/dL (8.4-10.2); Carbon Dioxide 30 mmol/L (22-30); Chloride 104 mmol/L (98-107); Estimated CRCL calculation 40 ml/min; Estimated Glomerular Filt Rate 54; Glucose 162 mg/dL (65-110); Magnesium 2.0 mg/dL (1.6-2.3); Potassium 3.5 mmol/L (3.4-5.0); Sodium 140 mmol/L (137-145); Total Protein 5.7 g/dL (6.3-8.2)
[2025-07-15] MEDS: CENTRAL LINE FLUSH 10 ML IV PUSH ×3 (05:19→21:30)
[2025-07-15] MEDS: ACETAMINOPHEN 325 MG TABLET 650 MG PO ×2 (06:53→13:04)
--- NOTE | 2025-07-15 07:53 | PM.PNCARD ---
Progress Note: A&P Assessment and Plan (1) Paroxysmal atrial fibrillation: Code(s): I48.0 - Paroxysmal atrial fibrillation Status: Chronic Assessment and Plan: In Sinus rhythm with frequent short runs of atrial tachycardia due to PAT. Back on Sotalol 80 mg BID. Normally on Xarelto. On Metoprolol prn for tachycardia. 07/11/25 Echo: EF 65-70%, mod LVH, diastolic dysfunction with E/e' 26, mild LAE, mod MAC, trace MR, mod TR, RVSP 60 mmHg, trace PI. Sotalol on hold due to ileus. If OK, resume Sotalol 80 mg BID to maintain sinus rhythm. As an outpatient may benefit from ablation. No further cardiac workup is needed. Will sign off, please call with any questions. (2) Essential hypertension: Code(s): I10 - Essential (primary) hypertension Status: Acute Assessment and Plan: Stable. (3) Dyslipidemia: Code(s): E78.5 - Hyperlipidemia, unspecified Status: Acute Assessment and Plan: On Pravastatin. 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 (5) Chronic obstructive pulmonary disease, unspecified: Code(s): J44.9 - Chronic obstructive pulmonary disease, unspecified Status: Acute (6) Pneumonia: Qualifiers: Laterality: bilateral Lung location: unspecified part of lung Pneumonia type: due to unspecified organism Qualified Code(s): J18.9 - Pneumonia, unspecified organism Code(s): J18.9 - Pneumonia, unspecified organism Status: Acute Assessment and Plan: On antibiotics as per hospitalist. (7) UTI (urinary tract infection): Code(s): N39.0 - Urinary tract infection, site not specified Status: Acute Assessment and Plan: On antibiotics as per hospitalist. Subjective Date/time seen: 07/15/25 07:53 Interval history: Alert and oriented. No chest pain or sob. Exam Const: General: cooperative, healthy appearing, comfortable, ill appearing and other (on CPAP) Resp: Auscultation: no crackles, no rales, no rhonchi, no wheezes and diminished lung sounds Cardio: Rate: tachycardic Rhythm: abnormal rhythm Heart sounds: no murmurs Peripheral pulses: dorsalis pedis present Extrem: Right lower extremity: no edema Left lower extremity: no edema Objective Data Vital Signs Vital Signs: Vital Signs - 24 hr 07/14/25 08:00 07/14/25 08:00 07/14/25 08:00 Temperature 98.4 F Pulse Rate 82 98 89 Respiratory Rate 21 H 20 Blood Pressure 115/81 Pulse Oximetry 87 L 98 Oxygen Delivery Nasal Cannula Oxygen Flow Rate 3 Fraction of Inspired Oxygen 07/14/25 08:04 07/14/25 08:04 07/14/25 08:15 Temperature Pulse Rate 81 81 85 Respiratory Rate 22 H 22 H 22 H Blood Pressure Pulse Oximetry 99 Oxygen Delivery High Flow Therapy with Na Oxygen Flow Rate 35 Fraction of Inspired Oxygen 40 07/14/25 08:29 07/14/25 08:35 07/14/25 09:00 Temperature 98.5 F Pulse Rate 102 H 91 64 Respiratory Rate 24 H 24 H 22 H Blood Pressure 115/58 L Pulse Oximetry 98 97 94 Oxygen Delivery High Flow Therapy with Na Nasal Cannula Oxygen Flow Rate 30 3 Fraction of Inspired Oxygen 30 07/14/25 10:00 07/14/25 10:00 07/14/25 11:00 Temperature 98.9 F 99 F Pulse Rate 109 H 61 62 Respiratory Rate 21 H 19 Blood Pressure 111/60 112/63 Pulse Oximetry 99 99 Oxygen Delivery Oxygen Flow Rate Fraction of Inspired Oxygen 07/14/25 12:00 07/14/25 12:00 07/14/25 12:00 Temperature 98.6 F Pulse Rate 104 H 105 H Respiratory Rate 24 H Blood Pressure Pulse Oximetry 96 95 Oxygen Delivery Nasal Cannula Oxygen Flow Rate 3 Fraction of Inspired Oxygen 07/14/25 12:16 07/14/25 13:00 07/14/25 14:00 Temperature 98.6 F Pulse Rate 102 H 105 H 108 H Respiratory Rate 20 24 H Blood Pressure 137/82 Pulse Oximetry 95 95 Oxygen Delivery Nasal Cannula Oxygen Flow Rate 3 Fraction of Inspired Oxygen 07/14/25 14:00 07/14/25 15:00 07/14/25 16:00 Temperature 98.6 F 98.6 F Pulse Rate 105 H 110 H Respiratory Rate 22 H 24 H Blood Pressure 124/69 128/89 Pulse Oximetry 96 96 97 Oxygen Delivery Nasal Cannula Oxygen Flow Rate 3 Fraction of Inspired Oxygen 07/14/25 16:00 07/14/25 16:00 07/14/25 17:00 Temperature 98.6 F 98.6 F Pulse Rate 109 H 107 H 109 H Respiratory Rate 24 H 24 H Blood Pressure 127/62 132/79 Pulse Oximetry 95 96 Oxygen Delivery Oxygen Flow Rate Fraction of Inspired Oxygen 07/14/25 18:00 07/14/25 18:00 07/14/25 19:00 Temperature 98.7 F 98.7 F Pulse Rate 123 H 123 H 109 H Respiratory Rate 24 H 22 H Blood Pressure 122/79 132/73 Pulse Oximetry 97 95 Oxygen Delivery Oxygen Flow Rate Fraction of Inspired Oxygen 07/14/25 19:35 07/14/25 20:00 07/14/25 20:00 Temperature 98.7 F Pulse Rate 109 H 109 H 119 H Respiratory Rate 22 H 25 H Blood Pressure 139/79 Pulse Oximetry 95 97 Oxygen Delivery Nasal Cannula Oxygen Flow Rate 3 Fraction of Inspired Oxygen 07/14/25 20:00 07/14/25 20:57 07/14/25 21:00 Temperature 98.6 F 98.6 F Pulse Rate 114 H 115 H Respiratory Rate 19 26 H Blood Pressure 139/79 140/97 H Pulse Oximetry 97 95 95 Oxygen Delivery Nasal Cannula Oxygen Flow Rate 3 Fraction of Inspired Oxygen 07/14/25 21:21 07/14/25 22:00 07/14/25 22:00 Temperature 98.5 F Pulse Rate 125 H 106 H 99 Respiratory Rate 21 H Blood Pressure 149/84 H Pulse Oximetry 97 Oxygen Delivery Oxygen Flow Rate Fraction of Inspired Oxygen 07/14/25 23:00 07/15/25 00:00 07/15/25 00:00 Temperature 98.5 F 98.6 F Pulse Rate 116 H 110 H 103 H Respiratory Rate 23 H 24 H 24 H Blood Pressure 95/66 L 147/83 H Pulse Oximetry 96 96 97 Oxygen Delivery Nasal Cannula Oxygen Flow Rate 3 Fraction of Inspired Oxygen 07/15/25 00:00 07/15/25 00:53 07/15/25 01:00 Temperature 98.7 F 98.7 F Pulse Rate 87 153 H 172 H Respiratory Rate 26 H 21 H Blood Pressure 166/95 H 147/95 H Pulse Oximetry 97 96 Oxygen Delivery Oxygen Flow Rate Fraction of Inspired Oxygen 07/15/25 01:19 07/15/25 01:27 07/15/25 02:00 Temperature 98.8 F Pulse Rate 162 H 109 H 111 H Respiratory Rate 21 H Blood Pressure 159/105 H 118/73 Pulse Oximetry 96 Oxygen Delivery Oxygen Flow Rate Fraction of Inspired Oxygen 07/15/25 02:00 07/15/25 02:00 07/15/25 03:00 Temperature 98.7 F 98.7 F Pulse Rate 107 H 103 H 102 H Respiratory Rate 23 H 24 H Blood Pressure 145/86 H 145/86 H 116/79 Pulse Oximetry 96 98 Oxygen Delivery Oxygen Flow Rate Fraction of Inspired Oxygen 07/15/25 03:55 07/15/25 04:00 07/15/25 04:00 Temperature 98.7 F Pulse Rate 102 H 96 107 H Respiratory Rate 24 H 23 H Blood Pressure 122/93 H Pulse Oximetry 98 97 Oxygen Delivery Nasal Cannula Oxygen Flow Rate 3 Fraction of Inspired Oxygen 07/15/25 04:00 07/15/25 05:00 07/15/25 06:00 Temperature 98.8 F Pulse Rate 96 106 H 116 H Respiratory Rate 22 H Blood Pressure 122/93 H 146/63 H Pulse Oximetry 98 Oxygen Delivery Oxygen Flow Rate Fraction of Inspired Oxygen 07/15/25 06:00 07/15/25 06:00 07/15/25 06:00 Temperature 98.7 F 98.7 F Pulse Rate 117 H 116 H 104 H Respiratory Rate 22 H 23 H Blood Pressure 135/75 135/75 135/75 Pulse Oximetry 98 97 Oxygen Delivery Oxygen Flow Rate Fraction of Inspired Oxygen 07/15/25 07:00 07/15/25 07:44 Temperature 98.6 F Pulse Rate 107 H Respiratory Rate 23 H Blood Pressure 127/57 L Pulse Oximetry 98 96 Oxygen Delivery Nasal Cannula Oxygen Flow Rate 3 Fraction of Inspired Oxygen Intake/Output Intake/Output: Intake & Output 07/12/25 07/13/25 07/14/25 07/15/25 23:59 23:59 23:59 23:59 Intake Total 300 800 500 523.4 Output Total 2100 0518 2950 1300 Balance -1800 -1150 -2450 -776.6 Meds/Results Medications: Active Medications Generic Name Dose Route Start Last Admin Trade Name Freq PRN Reason Stop Dose Admin Acetaminophen 650 mg 07/07/25 08:10 07/15/25 06:53 Acetaminophen 325 Mg Tablet PO 650 mg Q4H PRN Administration Mild Pain (1-3) or Fever Acetaminophen 650 mg 07/10/25 17:36 07/10/25 21:18 Acetaminophen 650 Mg Suppository RECTAL 650 mg Q6H PRN Administration Fever Dextrose 12.5 gm 07/10/25 15:08 Dextrose 50% 25 Gm/50 Ml Syringe IV PUSH PRN PRN Hypoglycemia Protocol Enoxaparin Sodium 40 mg 07/08/25 09:00 07/14/25 08:59 Enoxaparin 40 Mg/0.4 Ml Syringe SUB-Q 40 mg DAILY IVONE Administration Furosemide 40 mg 07/15/25 12:00 Furosemide Inj 40 Mg/4 Ml Vial IV PUSH 07/15/25 12:01 ONCE ONE Glucagon 1 mg 07/10/25 15:08 Glucagon For Inj 1 Mg Vial IM PRN PRN Hypoglycemia Protocol Glucose 15 gm 07/10/25 15:08 Glucose Oral Gel 15 Gm Of Glucse In 37.5 Gm Tube PO PRN PRN Hypoglycemia Protocol Guaifenesin 1,200 mg 07/07/25 21:00 07/10/25 11:01 Guaifenesin 12 Hr 600 Mg Tabcr PO Not Given On Hold: 07/10/25 15:02 Q12HR IVONE Dextrose 1,000 mls @ 100 mls/hr 07/10/25 15:08 Dextrose 5% 1,000 Ml IVPB PRN PRN Hypoglycemia Protocol Doxycycline Hyclate 100 mg/ 100 mls @ 100 mls/hr 07/10/25 21:00 07/14/25 21:40 Sodium Chloride IVPB 07/15/25 20:59 Infused Q12H IVONE Infusion Cefepime HCl 2 gm/ Sodium 50 mls @ 100 mls/hr 07/11/25 10:20 07/14/25 20:40 Chloride IVPB Infused Q12HR IVONE Infusion Diltiazem HCl 100 mg in 100 mls @ 5 mls/hr 07/15/25 01:10 07/15/25 06:00 Cardizem 100 Mg/100 Ml IV CONT 5 mg/hr .Q20H IVONE 5 mls/hr Protocol Titration 5 MG/HR Potassium Chloride 100 mls @ 25 mls/hr 07/15/25 07:55 Kcl 40 Meq/Water 100 Ml IVPB 07/15/25 11:54 ONCE ONE Insulin Aspart 3 - 6 units 07/10/25 17:00 07/15/25 05:18 Insulin Aspart (*Bkc) 100 Units/Ml SUB-Q Not Given Q4HR [facility] Protocol Insulin Glargine 10 units 07/12/25 09:00 07/12/25 16:10 Insulin Glargine (*Bkc) 100 Units/Ml SUB-Q Not Given On Hold: 07/13/25 08:23 DAILY IVONE Ipratropium Bruno 0.5 mg 07/14/25 08:25 Ipratropium Br 0.02% Inh Soln 0.5 Mg/2.5 Ml Vial INHALATION Q6HRT PRN Wheezing Levalbuterol HCl 0.63 mg 07/14/25 08:25 Levalbuterol Neb 1.25 Mg/3 Ml INHALATION Q6HRT PRN Wheezing Loperamide HCl 2 mg 07/07/25 14:57 Loperamide Hcl 2 Mg Capsule PO On Hold: 07/10/25 15:03 PRN PRN Diarrhea Methylprednisolone Sodium Succinate 10 mg 07/15/25 09:00 Methylprednisolone Sod Succ 40 Mg Vial IV PUSH DAILY IVONE Pantoprazole Sodium 40 mg 07/10/25 15:45 07/14/25 08:59 Pantoprazole Sodium Iv 40 Mg Vial IV PUSH 40 mg QAM IVONE Administration Phenol 1 spray 07/14/25 10:47 Phenol/Sod Pheno [place] (*Bkc) MUCOUS MEM PRN PRN Sore Throat Pramipexole Dihydrochloride 0.5 mg 07/07/25 21:00 07/09/25 20:52 Pramipexole 0.5 Mg Tablet PO 0.5 mg On Hold: 07/10/25 15:03 HS IVONE Administration Pravastatin Sodium 10 mg 07/08/25 09:00 07/10/25 11:02 Pravastatin Sodium 10 Mg Tablet BY MOUTH Not Given On Hold: 07/10/25 15:05 DAILY IVONE Sodium Chloride 20 ml 07/10/25 20:33 Central Line Flush IV PUSH PRN PRN after blood draws Sodium Chloride 10 ml 07/13/25 14:00 07/15/25 05:19 Central Line Flush IV PUSH 10 ml Q8HR IVONE Administration Sodium Chloride 10 ml 07/13/25 08:09 Central Line Flush IV PUSH PRN PRN with TPN bag changes Sodium Chloride 20 ml 07/13/25 08:09 Central Line Flush IV PUSH PRN PRN after blood draws Sotalol HCl 80 mg 07/15/25 09:00 Sotalol Hcl 80 Mg Tablet FEED TUBE Q12HR IVONE Trimethobenzamide HCl 200 mg 07/07/25 14:56 07/12/25 04:26 Trimethobenzamide Hcl 200 Mg/2 Ml Vial IM 200 mg Q6H PRN Administration Nausea And Vomiting Radiology Results: ITS Impressions Cervical Spine CT 07/07/25 06:30 IMPRESSION: HEAD: 1. No acute intracranial findings. 2. Bilateral mastoiditis. C-SPINE: 1. No acute fracture. 2. Ill-defined fluid and postoperative changes posterior to upper cervical spine. 3. Extensive bilateral upper lung airspace disease, and left pleural effusion. Chest/Abdomen/Pelvis CT 07/07/25 07:13 IMPRESSION: 1. Diffuse lung disease, likely a combination of pneumonia in the upper lobes and left lower lobe and mild pulmonary edema. 2. Small pleural effusions. 3. Colitis involving the rectosigmoid. Head CT 07/10/25 15:36 Impression: 1.No acute intracranial abnormality. Abdomen/Pelvis CT 07/13/25 13:46 IMPRESSION: 1. Increased size of pleural effusions which are small to moderate compared to small on the previous exam. Bibasilar atelectatic changes with possible developing consolidation and/or vascular congestion. 2. Fluid and gas dilated rectosigmoid region with findings suggestive of mild colitis and diarrhea process. 3. Extraperitoneal findings of uncertain significance possibly associated with the air foci associated with injections. Correlate clinically to exclude active inflammatory/infectious process in the extra peritoneal soft tissues. NG Tube Placement 07/13/25 14:43 IMPRESSION: 1. Fluoroscopy utilized during placement of a nasogastric tube with distal tip in proximal side port in the body the stomach. Labs Labs: Laboratory Results - last 24 hr 07/13/25 07/14/25 07/14/25 14:57 08:49 11:00 WBC RBC Hgb Hct MCV MCH MCHC RDW Plt Count MPV Sodium Potassium Chloride Carbon Dioxide Anion Gap BUN Creatinine Estim Creat Clear Calc Estimated GFR Glucose POC Capillary Glucose 154 H Calcium Magnesium Total Bilirubin AST ALT Alkaline Phosphatase Total Protein Albumin Procalcitonin 0.1 Chlamy pneumoniae PCR Not detected Adenovirus (PCR) Not detected B. pertussis DNA (PCR) Not detected B.parapertussis DNA PCR Not detected Coronavirus OC43 (PCR) Not detected Coronavirus HKU1 (PCR) Not detected Coronavirus 229E (PCR) Not detected Coronavirus NL63 (PCR) Not detected Human Metapneumovir PCR Not detected Influenza A (H1) PCR Not detected Influ A () PCR Not detected Influenza A (H3) PCR Not detected Influenza Type A (PCR) Not detected Influenza Type B (PCR) Not detected M. pneumoniae (PCR) Not detected Parainfluenza 1 (PCR) Not detected Parainfluenza 2 (PCR) Not detected Parainfluenza 3 (PCR) Not detected Parainfluenza 4 (PCR) Not detected RSV (PCR) Not detected Entero/Rhino (PCR) Not detected SARS-CoV-2 (PCR) Not detected 07/14/25 07/14/25 07/14/25 12:20 16:20 16:25 WBC RBC Hgb Hct MCV MCH MCHC RDW Plt Count MPV Sodium 137 Potassium 3.6 Chloride 100 Carbon Dioxide 32 H Anion Gap 5 BUN 30 H Creatinine 0.96 Estim Creat Clear Calc 43 Estimated GFR 57 L Glucose 188 H POC Capillary Glucose 176 H 226 H Calcium 9.0 Magnesium Total Bilirubin AST ALT Alkaline Phosphatase Total Protein Albumin Procalcitonin Chlamy pneumoniae PCR Adenovirus (PCR) B. pertussis DNA (PCR) B.parapertussis DNA PCR Coronavirus OC43 (PCR) Coronavirus HKU1 (PCR) Coronavirus 229E (PCR) Coronavirus NL63 (PCR) Human Metapneumovir PCR Influenza A (H1) PCR Influ A () PCR Influenza A (H3) PCR Influenza Type A (PCR) Influenza Type B (PCR) M. pneumoniae (PCR) Parainfluenza 1 (PCR) Parainfluenza 2 (PCR) Parainfluenza 3 (PCR) Parainfluenza 4 (PCR) RSV (PCR) Entero/Rhino (PCR) SARS-CoV-2 (PCR) 07/14/25 07/14/25 07/15/25 19:20 23:42 04:50 WBC 10.9 H RBC 3.36 L Hgb 9.5 L Hct 32.0 L MCV 95.2 MCH 28.3 MCHC 29.7 L RDW 20.1 H Plt Count 299 MPV 10.2 Sodium 140 Potassium 3.5 Chloride 104 Carbon Dioxide 30 Anion Gap 6 BUN 30 H Creatinine 1.01 H Estim Creat Clear Calc 40 Estimated GFR 54 L Glucose 162 H POC Capillary Glucose 189 H 164 H Calcium 9.0 Magnesium 2.0 Total Bilirubin 0.6 AST 20 ALT 17 Alkaline Phosphatase 161 H Total Protein 5.7 L Albumin 3.2 L Procalcitonin Chlamy pneumoniae PCR Adenovirus (PCR) B. pertussis DNA (PCR) B.parapertussis DNA PCR Coronavirus OC43 (PCR) Coronavirus HKU1 (PCR) Coronavirus 229E (PCR) Coronavirus NL63 (PCR) Human Metapneumovir PCR Influenza A (H1) PCR Influ A (H1/09) PCR Influenza A (H3) PCR Influenza Type A (PCR) Influenza Type B (PCR) M. pneumoniae (PCR) Parainfluenza 1 (PCR) Parainfluenza 2 (PCR) Parainfluenza 3 (PCR) Parainfluenza 4 (PCR) RSV (PCR) Entero/Rhino (PCR) SARS-CoV-2 (PCR)
--- NOTE | 2025-07-15 08:24 | P.PNINT_ITS ---
Progress Note: A&P Assessment and Plan (1) Ileus: Code(s): K56.7 - Ileus, unspecified Status: Acute Assessment and Plan: Patient complained of abdominal pain, abdominal obstructive series showed dilated bowel loops 07/14 CT abdomen pelvis did not show any obstruction NG tube is in place to low intermittent suction Currently NPO GI and general surgery following I will clamp NG tube and monitor (2) Encephalopathy: Code(s): G93.40 - Encephalopathy, unspecified Status: Acute Assessment and Plan: Likely related to hypercapnic respiratory failure, sepsis/infection, pretty obtunded, unable to open her eyes or follow simple commands, placed on AVAPS mode on presentation -07/10: Repeat head CT: No acute intracranial abnormality -ammonia levels were normal <9. Improved now and patient is now AO x3 (3) Acute and chronic respiratory failure: Code(s): J96.20 - Acute and chronic respiratory failure, unspecified whether with hypoxia or hypercapnia Status: Acute Assessment and Plan: Acute hypercapnic respiratory failure likely related to multifactorial issues, patient has a history of COPD, pulmonary hypertension, CHF, sarcoidosis, interstitial lung disease, now here with urinary tract infection, fall On presentation patient was placed on AVAPS -hypercapnia has resolved and patient is now alert oriented None imaging shows combination of pulmonary edema pleural effusions and pneumonia Continue ceftriaxone and doxycycline (07/07) for course Continue Lasix again today Oxygen requirement is down to 3 L nasal cannula Continue incentive spirometry Change bronchodilators p.r.n. to minimize tachycardia Continue home steroid dose for sarcoidosis Up in chair (4) Sepsis: Code(s): A41.9 - Sepsis, unspecified organism Status: Acute Assessment and Plan: Patient presented with a fall, altered mental status, urinary tract infection -07/07: Urine cultures growing Enterobacter cloaca and Proteus penneri, both of them a susceptible to cefepime -07/07: Blood cultures no growth x2 -07/10: Urine Legionella and streptococcal antigen pending -continue cefepime and doxycycline (07/11) UTI and pneumonia. Off vancomycin (5) Acute exacerbation of chronic obstructive pulmonary disease: Code(s): J44.1 - Chronic obstructive pulmonary disease with (acute) exacerbation Status: Acute Assessment and Plan: Oxygen therapy as above. P.r.n. bronchodilators. Off steroids Antibiotics as above (6) UTI (urinary tract infection): Code(s): N39.0 - Urinary tract infection, site not specified Status: Acute Assessment and Plan: Continue antibiotics as above, urine culture as above (7) Paroxysmal atrial fibrillation: Code(s): I48.0 - Paroxysmal atrial fibrillation Status: Chronic Assessment and Plan: Patient with history of paroxysmal AFib with intermittent rapid ventricular response, she does nonsustained tachycardia -patient was started on amiodarone overnight Patient was Restarted on sotalol after discussion with Cardiology, amiodarone was turned off. Later due to ileus p.o. medications. 07/14 due to frequent tachycardia patient was started on Cardizem infusion. She was on rivaroxaban but was held as patient was NPO, Also her anticoagulation was stopped by Cardiology as she has had a fall. Dr. Allen discussed with Cardiology regarding anticoagulation, Dr. Sorensen, stated that her in the mostly is atrial tachycardia and not atrial fibrillation and the risk for strokes is much decreased, he would like to wait on anticoagulation. Case discussed with Dr. Holly. Plan to resume sotalol today. If patient tolerates will transition to sotalol and p.r.n. Lopressor and get her off Cardizem infusion. Change Lovenox to therapeutic dose. If patient tolerates p.o. 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: without shelter use Qualified Code(s): E11.21 - Type 2 diabetes mellitus with diabetic nephropathy Code(s): E11.21 - Type 2 diabetes mellitus with diabetic nephropathy Status: Acute Assessment and Plan: Continue SSI (9) Sarcoid: Code(s): D86.9 - Sarcoidosis, unspecified Status: Acute Assessment and Plan: Recently diagnosed sarcoidosis and [facility] -patient's calcium level a within normal limits -weaning Solu-Medrol to 20 mg IV daily, will keep her on a maintenance dose of Solu-Medrol for sarcoidosis until she can start taking oral prednisone (10) Pulmonary hypertension: Code(s): I27.20 - Pulmonary hypertension, unspecified Status: Acute Assessment and Plan: History of pulmonary hypertension, likely related to sleep apnea, sarcoidosis, interstitial lung disease, coronary artery disease, COPD/: Pulmonology 11/21/2022: Echocardiogram RVSP was 59 mmHg Cardiology following the patient for atrial fibrillation and atrial tachycardia 07/11/2025: Echocardiogram Summary 1. Definity contrast administered improved wall motion interpretation. 2. Left ventricular chamber dimension is normal. 3. Left ventricular systolic function is normal, estimated at 65-70. 4. There is moderate concentric increased left ventricular wall thickness. 5. The left ventricular diastolic function is abnormal. 6. E/e' 26 is significantly elevated. 7. Right ventricular systolic function is reduced based on an abnormal TAPSE 1.4 cm. 8. Left atrial chamber dimension is mildly enlarged. 9. There is moderate aortic valve sclerosis. 10. The mitral valve has a moderately calcified annulus. 11. There is trace mitral valve regurgitation. 12. There is moderate tricuspid valve regurgitation. 13. Severe pulmonary hypertension, estimated pulmonary arterial systolic pressure is 60 mmHg. 14. There is trace pulmonic regurgitation. (11) Fall: Code(s): W19.XXXA - Unspecified fall, initial encounter Status: Acute Assessment and Plan: Patient presented with a fall on 07/07 -status post fusion of C2-C6 at [facility] on 06/26/2025 for cervical myelopathy -07/07: CT cervical spine showed fluid collection at the surgical site. Neurosurgery at [facility] evaluated the patient, no drainage from her incision and hardware was well-positioned, the neurosurgery team had no additional recommendations. -PT OT has been ordered (12) Pressure ulcer: Code(s): L89.90 - Pressure ulcer of unspecified site, unspecified stage Status: Acute Assessment and Plan: Stage III pressure ulcer on coccyx and sacrum -wound care following Plan DVT prophylaxis: Lovenox Stress ulcer prophylaxis: Protonix Nutrition: NPO Code Status: Full code I spoke to patient and at bedside. I answered all their questions. Case also discussed with the cardiology Critical Care Time Spent: 30 minutes Due to a high probability of clinically significant, life threatening deterioration, the patient required my highest level of preparedness to intervene emergently and I personally spent this critical care time directly and personally managing the patient. This critical care time included obtaining a history; examining the patient; pulse oximetry; ordering and review of studies; arranging urgent treatment with development of a management plan; evaluation of patient's response to treatment; frequent reassessment; and discussions with other providers. It was exclusive of separately billable procedures and treating other patients and teaching time. Please see Assessment and Plan section and the rest of the note for further information on patient assessment and treatment This dictation may have been done utilizing a voice recognition system. Attempts have been made to correct errors. However, there may be uncorrected grammatical, spelling, and recognitions errors present. Subjective Date/time seen: 07/15/25 She states she is hungry and would like some food. She also wants to set up in a chair. She denies any complaints. She states her stomach is upset but she does not feel there is any pain. She states she had some shortness of breath intermittently last night but overall she feels better. All other systems were reviewed and were negative. Overnight she she had frequent episodes of atrial tachycardia and was started on Cardizem infusion. Still having decent output from the NG tube but denies any nausea or abdominal discomfort Afebrile. Other vital signs stable. Good urine output. Interval history: Reason for consult: Encephalopathy, hypercapnic respiratory failure, intermittent atrial fibrillation with rapid ventricular response, sepsis Review of Systems Review of Systems: All systems reviewed & are unremarkable except as noted in HPI and below Exam Narrative: General: Ill-appearing female, appears older than her stated age HEENT:? pupils equal and reactive, sclera is clear, HFNC in place Neck:? Hard cervical collar in place Respiratory: Improved air entry bilaterally, decreased at bases, occasional crackles at bases Cardiac:? Irregularly irregular, rate controlled Abdomen:? Soft, no tenderness on exam, bowel sounds are present NG tube in place Extremities:? Upper extremities edematous, palpable pedal pulses on lower extremities Neuro:? Awake, alert, oriented x3 able to answer questions and follows simple commands in all 4 extremities Skin:? Bruising noted on upper extremities Psych:? Normal mentation, depressed affect Objective Data Vital Signs Vital Signs: Vital Signs - 24 hr 07/14/25 08:29 07/14/25 08:35 07/14/25 09:00 Temperature 36.9 C Pulse Rate 102 H 91 64 Respiratory Rate 24 H 24 H 22 H Blood Pressure 115/58 L Pulse Oximetry 98 97 94 Oxygen Delivery High Flow Therapy with Na Nasal Cannula Oxygen Flow Rate 30 3 Fraction of Inspired Oxygen 30 07/14/25 10:00 07/14/25 10:00 07/14/25 11:00 Temperature 37.2 C 37.2 C Pulse Rate 109 H 61 62 Respiratory Rate 21 H 19 Blood Pressure 111/60 112/63 Pulse Oximetry 99 99 Oxygen Delivery Oxygen Flow Rate Fraction of Inspired Oxygen 07/14/25 12:00 07/14/25 12:00 07/14/25 12:00 Temperature 37.0 C Pulse Rate 104 H 105 H Respiratory Rate 24 H Blood Pressure Pulse Oximetry 96 95 Oxygen Delivery Nasal Cannula Oxygen Flow Rate 3 Fraction of Inspired Oxygen 07/14/25 12:16 07/14/25 13:00 07/14/25 14:00 Temperature 37.0 C Pulse Rate 102 H 105 H 108 H Respiratory Rate 20 24 H Blood Pressure 137/82 Pulse Oximetry 95 95 Oxygen Delivery Nasal Cannula Oxygen Flow Rate 3 Fraction of Inspired Oxygen 07/14/25 14:00 07/14/25 15:00 07/14/25 16:00 Temperature 37.0 C 37.0 C Pulse Rate 105 H 110 H Respiratory Rate 22 H 24 H Blood Pressure 124/69 128/89 Pulse Oximetry 96 96 97 Oxygen Delivery Nasal Cannula Oxygen Flow Rate 3 Fraction of Inspired Oxygen 07/14/25 16:00 07/14/25 16:00 07/14/25 17:00 Temperature 37.0 C 37.0 C Pulse Rate 109 H 107 H 109 H Respiratory Rate 24 H 24 H Blood Pressure 127/62 132/79 Pulse Oximetry 95 96 Oxygen Delivery Oxygen Flow Rate Fraction of Inspired Oxygen 07/14/25 18:00 07/14/25 18:00 07/14/25 19:00 Temperature 37.1 C 37.1 C Pulse Rate 123 H 123 H 109 H Respiratory Rate 24 H 22 H Blood Pressure 122/79 132/73 Pulse Oximetry 97 95 Oxygen Delivery Oxygen Flow Rate Fraction of Inspired Oxygen 07/14/25 19:35 07/14/25 20:00 07/14/25 20:00 Temperature 37.1 C Pulse Rate 109 H 109 H 119 H Respiratory Rate 22 H 25 H Blood Pressure 139/79 Pulse Oximetry 95 97 Oxygen Delivery Nasal Cannula Oxygen Flow Rate 3 Fraction of Inspired Oxygen 07/14/25 20:00 07/14/25 20:57 07/14/25 21:00 Temperature 37.0 C 37.0 C Pulse Rate 114 H 115 H Respiratory Rate 19 26 H Blood Pressure 139/79 140/97 H Pulse Oximetry 97 95 95 Oxygen Delivery Nasal Cannula Oxygen Flow Rate 3 Fraction of Inspired Oxygen 07/14/25 21:21 07/14/25 22:00 07/14/25 22:00 Temperature 36.9 C Pulse Rate 125 H 106 H 99 Respiratory Rate 21 H Blood Pressure 149/84 H Pulse Oximetry 97 Oxygen Delivery Oxygen Flow Rate Fraction of Inspired Oxygen 07/14/25 23:00 07/15/25 00:00 07/15/25 00:00 Temperature 36.9 C 37.0 C Pulse Rate 116 H 110 H 103 H Respiratory Rate 23 H 24 H 24 H Blood Pressure 95/66 L 147/83 H Pulse Oximetry 96 96 97 Oxygen Delivery Nasal Cannula Oxygen Flow Rate 3 Fraction of Inspired Oxygen 07/15/25 00:00 07/15/25 00:53 07/15/25 01:00 Temperature 37.1 C 37.1 C Pulse Rate 87 153 H 172 H Respiratory Rate 26 H 21 H Blood Pressure 166/95 H 147/95 H Pulse Oximetry 97 96 Oxygen Delivery Oxygen Flow Rate Fraction of Inspired Oxygen 07/15/25 01:19 07/15/25 01:27 07/15/25 02:00 Temperature 37.1 C Pulse Rate 162 H 109 H 111 H Respiratory Rate 21 H Blood Pressure 159/105 H 118/73 Pulse Oximetry 96 Oxygen Delivery Oxygen Flow Rate Fraction of Inspired Oxygen 07/15/25 02:00 07/15/25 02:00 07/15/25 03:00 Temperature 37.1 C 37.1 C Pulse Rate 107 H 103 H 102 H Respiratory Rate 23 H 24 H Blood Pressure 145/86 H 145/86 H 116/79 Pulse Oximetry 96 98 Oxygen Delivery Oxygen Flow Rate Fraction of Inspired Oxygen 07/15/25 03:55 07/15/25 04:00 07/15/25 04:00 Temperature 37.1 C Pulse Rate 102 H 96 107 H Respiratory Rate 24 H 23 H Blood Pressure 122/93 H Pulse Oximetry 98 97 Oxygen Delivery Nasal Cannula Oxygen Flow Rate 3 Fraction of Inspired Oxygen 07/15/25 04:00 07/15/25 05:00 07/15/25 06:00 Temperature 37.1 C Pulse Rate 96 106 H 116 H Respiratory Rate 22 H Blood Pressure 122/93 H 146/63 H Pulse Oximetry 98 Oxygen Delivery Oxygen Flow Rate Fraction of Inspired Oxygen 07/15/25 06:00 07/15/25 06:00 07/15/25 06:00 Temperature 37.1 C 37.1 C Pulse Rate 117 H 116 H 104 H Respiratory Rate 22 H 23 H Blood Pressure 135/75 135/75 135/75 Pulse Oximetry 98 97 Oxygen Delivery Oxygen Flow Rate Fraction of Inspired Oxygen 07/15/25 07:00 07/15/25 07:44 Temperature 37.0 C Pulse Rate 107 H Respiratory Rate 23 H Blood Pressure 127/57 L Pulse Oximetry 98 96 Oxygen Delivery Nasal Cannula Oxygen Flow Rate 3 Fraction of Inspired Oxygen Intake/Output Intake/Output: Intake & Output 07/12/25 07/13/25 07/14/25 07/15/25 23:59 23:59 23:59 23:59 Intake Total 300 800 500 523.4 Output Total 2100 1950 2950 1300 Balance -1800 -8550 -2450 -776.6 Meds/Results Medications: Active Medications Generic Name Dose Route Start Last Admin Trade Name Freq PRN Reason Stop Dose Admin Acetaminophen 650 mg 07/07/25 08:10 07/15/25 06:53 Acetaminophen 325 Mg Tablet PO 650 mg Q4H PRN Administration Mild Pain (1-3) or Fever Acetaminophen 650 mg 07/10/25 17:36 07/10/25 21:18 Acetaminophen 650 Mg Suppository RECTAL 650 mg Q6H PRN Administration Fever Dextrose 12.5 gm 07/10/25 15:08 Dextrose 50% 25 Gm/50 Ml Syringe IV PUSH PRN PRN Hypoglycemia Protocol Enoxaparin Sodium 40 mg 07/08/25 09:00 07/14/25 08:59 Enoxaparin 40 Mg/0.4 Ml Syringe SUB-Q 40 mg DAILY IVONE Administration Furosemide 40 mg 07/15/25 12:00 Furosemide Inj 40 Mg/4 Ml Vial IV PUSH 07/15/25 12:01 ONCE ONE Glucagon 1 mg 07/10/25 15:08 Glucagon For Inj 1 Mg Vial IM PRN PRN Hypoglycemia Protocol Glucose 15 gm 07/10/25 15:08 Glucose Oral Gel 15 Gm Of Glucse In 37.5 Gm Tube PO PRN PRN Hypoglycemia Protocol Guaifenesin 1,200 mg 07/07/25 21:00 07/10/25 11:01 Guaifenesin 12 Hr 600 Mg Tabcr PO Not Given On Hold: 07/10/25 15:02 Q12HR IVONE Dextrose 1,000 mls @ 100 mls/hr 07/10/25 15:08 Dextrose 5% 1,000 Ml IVPB PRN PRN Hypoglycemia Protocol Doxycycline Hyclate 100 mg/ 100 mls @ 100 mls/hr 07/10/25 21:00 07/14/25 21:40 Sodium Chloride IVPB 07/15/25 20:59 Infused Q12H IVONE Infusion Cefepime HCl 2 gm/ Sodium 50 mls @ 100 mls/hr 07/11/25 10:20 07/14/25 20:40 Chloride IVPB Infused Q12HR IVONE Infusion Diltiazem HCl 100 mg in 100 mls @ 5 mls/hr 07/15/25 01:10 07/15/25 06:00 Cardizem 100 Mg/100 Ml IV CONT 5 mg/hr .Q20H IVONE 5 mls/hr Protocol Titration 5 MG/HR Potassium Chloride 100 mls @ 25 mls/hr 07/15/25 07:55 Kcl 40 Meq/Water 100 Ml IVPB 07/15/25 11:54 ONCE ONE Insulin Aspart 3 - 6 units 07/10/25 17:00 07/15/25 05:18 Insulin Aspart (*Bkc) 100 Units/Ml SUB-Q Not Given Q4HR [facility] Protocol Insulin Glargine 10 units 07/12/25 09:00 07/12/25 16:10 Insulin Glargine (*Bkc) 100 Units/Ml SUB-Q Not Given On Hold: 07/13/25 08:23 DAILY IVONE Ipratropium [place] 0.5 mg 07/14/25 08:25 Ipratropium Br 0.02% Inh Soln 0.5 Mg/2.5 Ml Vial INHALATION Q6HRT PRN Wheezing Levalbuterol HCl 0.63 mg 07/14/25 08:25 Levalbuterol Neb 1.25 Mg/3 Ml INHALATION Q6HRT PRN Wheezing Loperamide HCl 2 mg 07/07/25 14:57 Loperamide Hcl 2 Mg Capsule PO On Hold: 07/10/25 15:03 PRN PRN Diarrhea Methylprednisolone Sodium Succinate 10 mg 07/15/25 09:00 Methylprednisolone Sod Succ 40 Mg Vial IV PUSH DAILY IVONE Pantoprazole Sodium 40 mg 07/10/25 15:45 07/14/25 08:59 Pantoprazole Sodium Iv 40 Mg Vial IV PUSH 40 mg QAM [facility] Administration Phenol 1 spray 07/14/25 10:47 Phenol/Sod Pheno Mcdermitt Duncan (*Bkc) MUCOUS MEM PRN PRN Sore Throat Pramipexole Dihydrochloride 0.5 mg 07/07/25 21:00 07/09/25 20:52 Pramipexole 0.5 Mg Tablet PO 0.5 mg On Hold: 07/10/25 15:03 HS IVONE Administration Pravastatin Sodium 10 mg 07/08/25 09:00 07/10/25 11:02 Pravastatin Sodium 10 Mg Tablet BY MOUTH Not Given On Hold: 07/10/25 15:05 DAILY IVONE Sodium Chloride 20 ml 07/10/25 20:33 Central Line Flush IV PUSH PRN PRN after blood draws Sodium Chloride 10 ml 07/13/25 14:00 07/15/25 05:19 Central Line Flush IV PUSH 10 ml Q8HR IVONE Administration Sodium Chloride 10 ml 07/13/25 08:09 Central Line Flush IV PUSH PRN PRN with TPN bag changes Sodium Chloride 20 ml 07/13/25 08:09 Central Line Flush IV PUSH PRN PRN after blood draws Sotalol HCl 80 mg 07/15/25 09:00 Sotalol Hcl 80 Mg Tablet FEED TUBE Q12HR IVONE Trimethobenzamide HCl 200 mg 07/07/25 14:56 07/12/25 04:26 Trimethobenzamide Hcl 200 Mg/2 Ml Vial IM 200 mg Q6H PRN Administration Nausea And Vomiting Radiology Results: ITS Impressions Cervical Spine CT 07/07/25 06:30 IMPRESSION: HEAD: 1. No acute intracranial findings. 2. Bilateral mastoiditis. C-SPINE: 1. No acute fracture. 2. Ill-defined fluid and postoperative changes posterior to upper cervical spine. 3. Extensive bilateral upper lung airspace disease, and left pleural effusion. Chest/Abdomen/Pelvis CT 07/07/25 07:13 IMPRESSION: 1. Diffuse lung disease, likely a combination of pneumonia in the upper lobes and left lower lobe and mild pulmonary edema. 2. Small pleural effusions. 3. Colitis involving the rectosigmoid. Head CT 07/10/25 15:36 Impression: 1.No acute intracranial abnormality. Abdomen/Pelvis CT 07/13/25 13:46 IMPRESSION: 1. Increased size of pleural effusions which are small to moderate compared to small on the previous exam. Bibasilar atelectatic changes with possible developing consolidation and/or vascular congestion. 2. Fluid and gas dilated rectosigmoid region with findings suggestive of mild colitis and diarrhea process. 3. Extraperitoneal findings of uncertain significance possibly associated with the air foci associated with injections. Correlate clinically to exclude active inflammatory/infectious process in the extra peritoneal soft tissues. NG Tube Placement 07/13/25 14:43 IMPRESSION: 1. Fluoroscopy utilized during placement of a nasogastric tube with distal tip in proximal side port in the body the stomach. Labs Labs: Laboratory Results - last 24 hr 07/13/25 07/14/25 07/14/25 14:57 08:49 11:00 WBC RBC Hgb Hct MCV MCH MCHC RDW Plt Count MPV Sodium Potassium Chloride Carbon Dioxide Anion Gap BUN Creatinine Estim Creat Clear Calc Estimated GFR Glucose POC Capillary Glucose 154 H Calcium Magnesium Total Bilirubin AST ALT Alkaline Phosphatase Total Protein Albumin Procalcitonin 0.1 Chlamy pneumoniae PCR Not detected Adenovirus (PCR) Not detected B. pertussis DNA (PCR) Not detected B.parapertussis DNA PCR Not detected Coronavirus OC43 (PCR) Not detected Coronavirus HKU1 (PCR) Not detected Coronavirus 229E (PCR) Not detected Coronavirus NL63 (PCR) Not detected Human Metapneumovir PCR Not detected Influenza A (H1) PCR Not detected Influ A (H1/09) PCR Not detected Influenza A (H3) PCR Not detected Influenza Type A (PCR) Not detected Influenza Type B (PCR) Not detected M. pneumoniae (PCR) Not detected Parainfluenza 1 (PCR) Not detected Parainfluenza 2 (PCR) Not detected Parainfluenza 3 (PCR) Not detected Parainfluenza 4 (PCR) Not detected RSV (PCR) Not detected Entero/Rhino (PCR) Not detected SARS-CoV-2 (PCR) Not detected 07/14/25 07/14/25 07/14/25 12:20 16:20 16:25 WBC RBC Hgb Hct MCV MCH MCHC RDW Plt Count MPV Sodium 137 Potassium 3.6 Chloride 100 Carbon Dioxide 32 H Anion Gap 5 BUN 30 H Creatinine 0.96 Estim Creat Clear Calc 43 Estimated GFR 57 L Glucose 188 H POC Capillary Glucose 176 H 226 H Calcium 9.0 Magnesium Total Bilirubin AST ALT Alkaline Phosphatase Total Protein Albumin Procalcitonin Chlamy pneumoniae PCR Adenovirus (PCR) B. pertussis DNA (PCR) B.parapertussis DNA PCR Coronavirus OC43 (PCR) Coronavirus HKU1 (PCR) Coronavirus 229E (PCR) Coronavirus NL63 (PCR) Human Metapneumovir PCR Influenza A (H1) PCR Influ A () PCR Influenza A (H3) PCR Influenza Type A (PCR) Influenza Type B (PCR) M. pneumoniae (PCR) Parainfluenza 1 (PCR) Parainfluenza 2 (PCR) Parainfluenza 3 (PCR) Parainfluenza 4 (PCR) RSV (PCR) Entero/Rhino (PCR) SARS-CoV-2 (PCR) 07/14/25 07/14/25 07/15/25 19:20 23:42 04:50 WBC 10.9 H RBC 3.36 L Hgb 9.5 L Hct 32.0 L MCV 95.2 MCH 28.3 MCHC 29.7 L RDW 20.1 H Plt Count 299 MPV 10.2 Sodium 140 Potassium 3.5 Chloride 104 Carbon Dioxide 30 Anion Gap 6 BUN 30 H Creatinine 1.01 H Estim Creat Clear Calc 40 Estimated GFR 54 L Glucose 162 H POC Capillary Glucose 189 H 164 H Calcium 9.0 Magnesium 2.0 Total Bilirubin 0.6 AST 20 ALT 17 Alkaline Phosphatase 161 H Total Protein 5.7 L Albumin 3.2 L Procalcitonin Chlamy pneumoniae PCR Adenovirus (PCR) B. pertussis DNA (PCR) B.parapertussis DNA PCR Coronavirus OC43 (PCR) Coronavirus HKU1 (PCR) Coronavirus 229E (PCR) Coronavirus NL63 (PCR) Human Metapneumovir PCR Influenza A (H1) PCR Influ A () PCR Influenza A (H3) PCR Influenza Type A (PCR) Influenza Type B (PCR) M. pneumoniae (PCR) Parainfluenza 1 (PCR) Parainfluenza 2 (PCR) Parainfluenza 3 (PCR) Parainfluenza 4 (PCR) RSV (PCR) Entero/Rhino (PCR) SARS-CoV-2 (PCR) Quality VTE Prophylaxis VTE prophylaxis: mechanical ordered
[2025-07-15] MEDS: PANTOPRAZOLE SODIUM IV 40 MG VIAL IV PUSH (09:01)
[2025-07-15] MEDS: ENOXAPARIN 80 MG/0.8 ML SYRINGE 70 MG SUB-Q ×2 (09:01→20:16)
[2025-07-15] MEDS: SOTALOL HCL 80 MG TABLET FEED TUBE ×2 (09:02→20:18)
[2025-07-15] MEDS: KCL 40 MEQ/WATER 100 ML 100 ML 25 ML IVPB (09:02)
[2025-07-15] MEDS: CEFEPIME 2 GM in SODIUM CHLORIDE 0.9% IV 50 ML 100 ML IVPB ×2 (09:02→20:13)
[2025-07-15] MEDS: DOXYCYCLINE IV 100 MG in SODIUM CHLORIDE 0.9% IV 100 ML IVPB (09:55)
--- NOTE | 2025-07-15 11:47 | P.PNIM_ITS ---
Progress Note: A&P Assessment and Plan (1) Sarcoid: Code(s): D86.9 - Sarcoidosis, unspecified Status: Acute (2) Ileus: Code(s): K56.7 - Ileus, unspecified Status: Acute Plan Ileus, improving -KUB concerning for worsening dilated loops of bowel -appreciate GI consult quadrant condition NG tube decompression -appreciate general surgical consultation: Recommendation for abdominal CT scan -abdominal CT scan with contrast 07/13: Including gas dilated rectosigmoid concerning for colitis, no SBO -NG tube placed by IR 07/13 -tolerating ice chips Multifocal atrial tachycardia, stable Paroxysmal atrial fibrillation -patient has paroxysmal atrial fibrillation on Xarelto and rate control with sotalol -currently patient appears to have atrial tachycardia heart rate fluctuating from 90 to 140s -appreciate Cardiology consultation Dr. Sorensen -history of paroxysmal atrial fibrillation -resuming sotalol, she will need a referral outpatient for EP ablation Acute hypoxic respiratory failure Community-acquired pneumonia? Sarcoidosis -patient on heated high-flow oxygen changed to nasal cannula 3L, not on bipap -appreciate pulmonology management -antibiotics: Vancomycin/cefepime/doxycycline -MRSA nares positive -steroids: Solu-Medrol 20 mg IV push daily -holding Lasix Chronic conditions -type 2 diabetes: Monitor glucose, held glargine 10 units daily, sliding scale insulin -polymyalgia rheumatica: Steroid -pulmonary hypertension: Diuretic -recent c-spine surgery. Posterior cervical decompression and fusion C2-6 at [facility] on 06/26/25 keep c-collar on for [address] Lowry. C-collar in place. I am requesting records from [facility] where it was placed -hyperlipidemia: Pravastatin -RLS: mirapex, Robaxin -essential hypertension: Losartan -supplements: D3 Diet: NPO except ice chips DVT prophylaxis: SCDs, home on Xarelto, Lovenox for now GI prophylaxis: Protonix Code status: Full code Disposition: ICU, possibly downgrade to medical floor if vitals are stable, SNF>2 days Time Spent With Patient Time: 35 minutes Subjective Date/time seen: 07/15/25 11:47 Interval history: Patient seen examined. She is doing well no new complaints. She is having some discomfort from her C-collar. I will obtain records from [facility] further recomme ndations for the C-collar. Sotalol has been resumed and heart rate is better. She is doing well on 3 L oxygen nasal cannula. She is tolerating ice chips and it appears her ileus is resolving. Hopefully we can advance her diet to liquids and possibly remove the NG tube out in next day or 2. Patient encouraged to get out of bed. Review of Systems Review of Systems: 10 point ROS complete, negative other th an what is specified in HPI. Exam Narrative: - GENERAL: Pleasant chronically ill-lior earing elderly woman in No acute distress - EYES: EOMI. Anicteric. - HENT: Moist mucous membranes. C-colla r in place - LUNGS: Clear to auscultation, slightl y diminished, on 3 L oxygen nasal cannula - CARDIOVASCULAR: Regular rate and rhyt hm - ABDOMEN: Soft, still slightly distende d, nontender, increased bowel sounds - EXTREMITIES: No edema. Peripheral puls es 2+. - NEUROLOGIC: No focal neurological defi cits. CN II-XII grossly intact. - PSYCHIATRIC: Awake, Alert and oriented x 3. Appropriate mood and affect. Objective Data Vital Signs Vital Signs: Vital Signs - 24 hr 07/14/25 12:00 07/14/25 12:00 07/14/25 12:00 Temperature 37.0 C Pulse Rate 104 H 105 H Respiratory Rate 24 H Blood Pressure Pulse Oximetry 96 95 Oxygen Delivery Nasal Cannula Oxygen Flow Rate 3 07/14/25 12:16 07/14/25 13:00 07/14/25 14:00 Temperature 37.0 C Pulse Rate 102 H 105 H 108 H Respiratory Rate 20 24 H Blood Pressure 137/82 Pulse Oximetry 95 95 Oxygen Delivery Nasal Cannula Oxygen Flow Rate 3 07/14/25 14:00 07/14/25 15:00 07/14/25 16:00 Temperature 37.0 C 37.0 C Pulse Rate 105 H 110 H Respiratory Rate 22 H 24 H Blood Pressure 124/69 128/89 Pulse Oximetry 96 96 97 Oxygen Delivery Nasal Cannula Oxygen Flow Rate 3 07/14/25 16:00 07/14/25 16:00 07/14/25 17:00 Temperature 37.0 C 37.0 C Pulse Rate 109 H 107 H 109 H Respiratory Rate 24 H 24 H Blood Pressure 127/62 132/79 Pulse Oximetry 95 96 Oxygen Delivery Oxygen Flow Rate 07/14/25 18:00 07/14/25 18:00 07/14/25 19:00 Temperature 37.1 C 37.1 C Pulse Rate 123 H 123 H 109 H Respiratory Rate 24 H 22 H Blood Pressure 122/79 132/73 Pulse Oximetry 97 95 Oxygen Delivery Oxygen Flow Rate 07/14/25 19:35 07/14/25 20:00 07/14/25 20:00 Temperature 37.1 C Pulse Rate 109 H 109 H 119 H Respiratory Rate 22 H 25 H Blood Pressure 139/79 Pulse Oximetry 95 97 Oxygen Delivery Nasal Cannula Oxygen Flow Rate 3 07/14/25 20:00 07/14/25 20:57 07/14/25 21:00 Temperature 37.0 C 37.0 C Pulse Rate 114 H 115 H Respiratory Rate 19 26 H Blood Pressure 139/79 140/97 H Pulse Oximetry 97 95 95 Oxygen Delivery Nasal Cannula Oxygen Flow Rate 3 07/14/25 21:21 07/14/25 22:00 07/14/25 22:00 Temperature 36.9 C Pulse Rate 125 H 106 H 99 Respiratory Rate 21 H Blood Pressure 149/84 H Pulse Oximetry 97 Oxygen Delivery Oxygen Flow Rate 07/14/25 23:00 07/15/25 00:00 07/15/25 00:00 Temperature 36.9 C 37.0 C Pulse Rate 116 H 110 H 103 H Respiratory Rate 23 H 24 H 24 H Blood Pressure 95/66 L 147/83 H Pulse Oximetry 96 96 97 Oxygen Delivery Nasal Cannula Oxygen Flow Rate 3 07/15/25 00:00 07/15/25 00:53 07/15/25 01:00 Temperature 37.1 C 37.1 C Pulse Rate 87 153 H 172 H Respiratory Rate 26 H 21 H Blood Pressure 166/95 H 147/95 H Pulse Oximetry 97 96 Oxygen Delivery Oxygen Flow Rate 07/15/25 01:19 07/15/25 01:27 07/15/25 02:00 Temperature 37.1 C Pulse Rate 162 H 109 H 111 H Respiratory Rate 21 H Blood Pressure 159/105 H 118/73 Pulse Oximetry 96 Oxygen Delivery Oxygen Flow Rate 07/15/25 02:00 07/15/25 02:00 07/15/25 03:00 Temperature 37.1 C 37.1 C Pulse Rate 107 H 103 H 102 H Respiratory Rate 23 H 24 H Blood Pressure 145/86 H 145/86 H 116/79 Pulse Oximetry 96 98 Oxygen Delivery Oxygen Flow Rate 07/15/25 03:55 07/15/25 04:00 07/15/25 04:00 Temperature 37.1 C Pulse Rate 102 H 96 107 H Respiratory Rate 24 H 23 H Blood Pressure 122/93 H Pulse Oximetry 98 97 Oxygen Delivery Nasal Cannula Oxygen Flow Rate 3 07/15/25 04:00 07/15/25 05:00 07/15/25 06:00 Temperature 37.1 C Pulse Rate 96 106 H 116 H Respiratory Rate 22 H Blood Pressure 122/93 H 146/63 H Pulse Oximetry 98 Oxygen Delivery Oxygen Flow Rate 07/15/25 06:00 07/15/25 06:00 07/15/25 06:00 Temperature 37.1 C 37.1 C Pulse Rate 117 H 116 H 104 H Respiratory Rate 22 H 23 H Blood Pressure 135/75 135/75 135/75 Pulse Oximetry 98 97 Oxygen Delivery Oxygen Flow Rate 07/15/25 07:00 07/15/25 07:44 07/15/25 08:00 Temperature 37.0 C 37.1 C Pulse Rate 107 H 109 H Respiratory Rate 23 H 20 Blood Pressure 127/57 L 144/110 H Pulse Oximetry 98 96 96 Oxygen Delivery Nasal Cannula Oxygen Flow Rate 3 07/15/25 08:00 07/15/25 08:00 07/15/25 08:00 Temperature Pulse Rate 109 H 105 H Respiratory Rate Blood Pressure 144/110 H Pulse Oximetry 96 Oxygen Delivery Nasal Cannula Oxygen Flow Rate 3 07/15/25 09:00 07/15/25 09:02 07/15/25 10:00 Temperature 37.1 C 37.2 C Pulse Rate 116 H 157 H 117 H Respiratory Rate 23 H 28 H Blood Pressure 154/54 H 131/84 Pulse Oximetry 97 96 Oxygen Delivery Oxygen Flow Rate 07/15/25 10:00 07/15/25 11:00 Temperature 37.0 C Pulse Rate 105 H 106 H Respiratory Rate 21 H Blood Pressure 132/88 Pulse Oximetry 97 Oxygen Delivery Oxygen Flow Rate Intake/Output Intake/Output: Intake & Output 07/12/25 07/13/25 07/14/25 07/15/25 23:59 23:59 23:59 23:59 Intake Total 300 800 500 533.4 Output Total 2100 2627 8100 1300 Balance -1800 -1150 -2450 -766.6 Meds/Results Medications: Active Medications Generic Name Dose Route Start Last Admin Trade Name Freq PRN Reason Stop Dose Admin Acetaminophen 650 mg 07/07/25 08:10 07/15/25 06:53 Acetaminophen 325 Mg Tablet PO 650 mg Q4H PRN Administration Mild Pain (1-3) or Fever Acetaminophen 650 mg 07/10/25 17:36 07/10/25 21:18 Acetaminophen 650 Mg Suppository RECTAL 650 mg Q6H PRN Administration Fever Dextrose 12.5 gm 07/10/25 15:08 Dextrose 50% 25 Gm/50 Ml Syringe IV PUSH PRN PRN Hypoglycemia Protocol Enoxaparin Sodium 70 mg 07/15/25 09:00 07/15/25 09:01 Enoxaparin 80 Mg/0.8 Ml Syringe SUB-Q 70 mg Q12HR IVONE Administration Furosemide 40 mg 07/15/25 12:00 Furosemide Inj 40 Mg/4 Ml Vial IV PUSH 07/15/25 12:01 ONCE ONE Glucagon 1 mg 07/10/25 15:08 Glucagon For Inj 1 Mg Vial IM PRN PRN Hypoglycemia Protocol Glucose 15 gm 07/10/25 15:08 Glucose Oral Gel 15 Gm Of Glucse In 37.5 Gm Tube PO PRN PRN Hypoglycemia Protocol Guaifenesin 1,200 mg 07/07/25 21:00 07/10/25 11:01 Guaifenesin 12 Hr 600 Mg Tabcr PO Not Given On Hold: 07/10/25 15:02 Q12HR IVONE Dextrose 1,000 mls @ 100 mls/hr 07/10/25 15:08 Dextrose 5% 1,000 Ml IVPB PRN PRN Hypoglycemia Protocol Doxycycline Hyclate 100 mg/ 100 mls @ 100 mls/hr 07/10/25 21:00 07/15/25 09:55 Sodium Chloride IVPB 07/15/25 20:59 100 mls/hr Q12H IVONE Administration Cefepime HCl 2 gm/ Sodium 50 mls @ 100 mls/hr 07/11/25 10:20 07/15/25 09:02 Chloride IVPB 100 mls/hr Q12HR IVONE Administration Diltiazem HCl 100 mg in 100 mls @ 5 mls/hr 07/15/25 01:10 07/15/25 08:00 Cardizem 100 Mg/100 Ml IV CONT 5 mg/hr On Hold: 07/15/25 11:44 .Q20H IVONE 5 mls/hr Protocol Titration 5 MG/HR Potassium Chloride 100 mls @ 25 mls/hr 07/15/25 07:55 07/15/25 09:02 Kcl 40 Meq/Water 100 Ml IVPB 07/15/25 11:54 25 mls/hr ONCE ONE Administration Insulin Aspart 3 - 6 units 07/10/25 17:00 07/15/25 09:01 Insulin Aspart (*Bkc) 100 Units/Ml SUB-Q Not Given Q4HR [facility] Protocol Insulin Glargine 10 units 07/12/25 09:00 07/12/25 16:10 Insulin Glargine (*Bkc) 100 Units/Ml SUB-Q Not Given On Hold: 07/13/25 08:23 DAILY IVONE Ipratropium G[place]ier 0.5 mg 07/14/25 08:25 Ipratropium Br 0.02% Inh Soln 0.5 Mg/2.5 Ml Vial INHALATION Q6HRT PRN Wheezing Levalbuterol HCl 0.63 mg 07/14/25 08:25 Levalbuterol Neb 1.25 Mg/3 Ml INHALATION Q6HRT PRN Wheezing Loperamide HCl 2 mg 07/07/25 14:57 Loperamide Hcl 2 Mg Capsule PO On Hold: 07/10/25 15:03 PRN PRN Diarrhea Methylprednisolone Sodium Succinate 10 mg 07/15/25 09:00 07/15/25 09:01 Methylprednisolone Sod Succ 40 Mg Vial IV PUSH 10 mg DAILY IVONE Administration Metoprolol Tartrate 5 mg 07/15/25 11:44 Metoprolol Tartrate Inj 5 Mg/5 Ml Vial IV PUSH Q3H PRN HR > 120 sustained Pantoprazole Sodium 40 mg 07/10/25 15:45 07/15/25 09:01 Pantoprazole Sodium Iv 40 Mg Vial IV PUSH 40 mg QAM IVONE Administration Phenol 1 spray 07/14/25 10:47 Phenol/Sod Pheno Ward Duncan (*Bkc) MUCOUS MEM PRN PRN Sore Throat Pramipexole Dihydrochloride 0.5 mg 07/07/25 21:00 07/09/25 20:52 Pramipexole 0.5 Mg Tablet PO 0.5 mg On Hold: 07/10/25 15:03 HS IVONE Administration Pravastatin Sodium 10 mg 07/08/25 09:00 07/10/25 11:02 Pravastatin Sodium 10 Mg Tablet BY MOUTH Not Given On Hold: 07/10/25 15:05 DAILY IVONE Sodium Chloride 20 ml 07/10/25 20:33 Central Line Flush IV PUSH PRN PRN after blood draws Sodium Chloride 10 ml 07/13/25 14:00 07/15/25 05:19 Central Line Flush IV PUSH 10 ml Q8HR IVONE Administration Sodium Chloride 10 ml 07/13/25 08:09 Central Line Flush IV PUSH PRN PRN with TPN bag changes Sodium Chloride 20 ml 07/13/25 08:09 Central Line Flush IV PUSH PRN PRN after blood draws Sotalol HCl 80 mg 07/15/25 09:00 07/15/25 09:02 Sotalol Hcl 80 Mg Tablet FEED TUBE 80 mg Q12HR IVONE Administration Trimethobenzamide HCl 200 mg 07/07/25 14:56 07/12/25 04:26 Trimethobenzamide Hcl 200 Mg/2 Ml Vial IM 200 mg Q6H PRN Administration Nausea And Vomiting Radiology Results: ITS Impressions Cervical Spine CT 07/07/25 06:30 IMPRESSION: HEAD: 1. No acute intracranial findings. 2. Bilateral mastoiditis. C-SPINE: 1. No acute fracture. 2. Ill-defined fluid and postoperative changes posterior to upper cervical spine. 3. Extensive bilateral upper lung airspace disease, and left pleural effusion. Chest/Abdomen/Pelvis CT 07/07/25 07:13 IMPRESSION: 1. Diffuse lung disease, likely a combination of pneumonia in the upper lobes and left lower lobe and mild pulmonary edema. 2. Small pleural effusions. 3. Colitis involving the rectosigmoid. Head CT 07/10/25 15:36 Impression: 1.No acute intracranial abnormality. Abdomen/Pelvis CT 07/13/25 13:46 IMPRESSION: 1. Increased size of pleural effusions which are small to moderate compared to small on the previous exam. Bibasilar atelectatic changes with possible developing consolidation and/or vascular congestion. 2. Fluid and gas dilated rectosigmoid region with findings suggestive of mild colitis and diarrhea process. 3. Extraperitoneal findings of uncertain significance possibly associated with the air foci associated with injections. Correlate clinically to exclude active inflammatory/infectious process in the extra peritoneal soft tissues. NG Tube Placement 07/13/25 14:43 IMPRESSION: 1. Fluoroscopy utilized during placement of a nasogastric tube with distal tip in proximal side port in the body the stomach. Chest X-Ray 07/15/25 09:40 IMPRESSION: 1. No significant change. 2. Left pleural effusion and basilar atelectasis 3. Right effusion poorly seen if it persists. Abdomen X-Ray 07/15/25 09:48 IMPRESSION: 1. Persistent colonic gaseous distention likely secondary to diarrheal process and/or colitis. Labs Labs: Laboratory Results - last 24 hr 07/13/25 07/14/25 07/14/25 14:57 11:00 12:20 WBC RBC Hgb Hct MCV MCH MCHC RDW Plt Count MPV Sodium Potassium Chloride Carbon Dioxide Anion Gap BUN Creatinine Estim Creat Clear Calc Estimated GFR Glucose POC Capillary Glucose 176 H Calcium Magnesium Total Bilirubin AST ALT Alkaline Phosphatase Total Protein Albumin Procalcitonin 0.1 Chlamy pneumoniae PCR Not detected Adenovirus (PCR) Not detected B. pertussis DNA (PCR) Not detected B.parapertussis DNA PCR Not detected Coronavirus OC43 (PCR) Not detected Coronavirus HKU1 (PCR) Not detected Coronavirus 229E (PCR) Not detected Coronavirus NL63 (PCR) Not detected Human Metapneumovir PCR Not detected Influenza A (H1) PCR Not detected Influ A (H1/09) PCR Not detected Influenza A (H3) PCR Not detected Influenza Type A (PCR) Not detected Influenza Type B (PCR) Not detected M. pneumoniae (PCR) Not detected Parainfluenza 1 (PCR) Not detected Parainfluenza 2 (PCR) Not detected Parainfluenza 3 (PCR) Not detected Parainfluenza 4 (PCR) Not detected RSV (PCR) Not detected Entero/Rhino (PCR) Not detected SARS-CoV-2 (PCR) Not detected 07/14/25 07/14/25 07/14/25 16:20 16:25 19:20 WBC RBC Hgb Hct MCV MCH MCHC RDW Plt Count MPV Sodium 137 Potassium 3.6 Chloride 100 Carbon Dioxide 32 H Anion Gap 5 BUN 30 H Creatinine 0.96 Estim Creat Clear Calc 43 Estimated GFR 57 L Glucose 188 H POC Capillary Glucose 226 H 189 H Calcium 9.0 Magnesium Total Bilirubin AST ALT Alkaline Phosphatase Total Protein Albumin Procalcitonin Chlamy pneumoniae PCR Adenovirus (PCR) B. pertussis DNA (PCR) B.parapertussis DNA PCR Coronavirus OC43 (PCR) Coronavirus HKU1 (PCR) Coronavirus 229E (PCR) Coronavirus NL63 (PCR) Human Metapneumovir PCR Influenza A (H1) PCR Influ A () PCR Influenza A (H3) PCR Influenza Type A (PCR) Influenza Type B (PCR) M. pneumoniae (PCR) Parainfluenza 1 (PCR) Parainfluenza 2 (PCR) Parainfluenza 3 (PCR) Parainfluenza 4 (PCR) RSV (PCR) Entero/Rhino (PCR) SARS-CoV-2 (PCR) 07/14/25 07/15/25 07/15/25 23:42 04:50 09:00 WBC 10.9 H RBC 3.36 L Hgb 9.5 L Hct 32.0 L MCV 95.2 MCH 28.3 MCHC 29.7 L RDW 20.1 H Plt Count 299 MPV 10.2 Sodium 140 Potassium 3.5 Chloride 104 Carbon Dioxide 30 Anion Gap 6 BUN 30 H Creatinine 1.01 H Estim Creat Clear Calc 40 Estimated GFR 54 L Glucose 162 H POC Capillary Glucose 164 H 193 H Calcium 9.0 Magnesium 2.0 Total Bilirubin 0.6 AST 20 ALT 17 Alkaline Phosphatase 161 H Total Protein 5.7 L Albumin 3.2 L Procalcitonin Chlamy pneumoniae PCR Adenovirus (PCR) B. pertussis DNA (PCR) B.parapertussis DNA PCR Coronavirus OC43 (PCR) Coronavirus HKU1 (PCR) Coronavirus 229E (PCR) Coronavirus NL63 (PCR) Human Metapneumovir PCR Influenza A (H1) PCR Influ A () PCR Influenza A (H3) PCR Influenza Type A (PCR) Influenza Type B (PCR) M. pneumoniae (PCR) Parainfluenza 1 (PCR) Parainfluenza 2 (PCR) Parainfluenza 3 (PCR) Parainfluenza 4 (PCR) RSV (PCR) Entero/Rhino (PCR) SARS-CoV-2 (PCR)
--- NOTE | 2025-07-15 12:16 | P.PNGS_ITS ---
Progress Note: A&P Assessment and Plan (1) Ileus: Code(s): K56.7 - Ileus, unspecified Status: Acute Assessment and Plan: Pain gone, no abdominal distension, active bowel sounds noted. Agree with clamping NG tube. Can try clear liquids at any time. 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 Plan is for up to chair today. Subjective Subjective Date/Time Seen: 07/15/25 12:16 Patient reports: no new complaints, feels better, pain is less, no flatus and no bowel movement Interval history: Wants to get up in a chair. NG tube has been clamped by staff certified nurse midwife Review of Systems Review of Systems: All systems reviewed & are unremarkable except as noted in HPI and below (HPI) Exam Const: General: comfortable, awake and Physically active Orientation/consciousness: No confusion GI: Inspection: non-distended GI Palp: Yes Soft to palpation and No Tenderness to palpation present (GI) Auscultation: normal bowel sounds Objective Data Vital Signs Vital Signs: Vital Signs - 24 hr 07/14/25 13:00 07/14/25 14:00 07/14/25 14:00 Temperature 37.0 C 37.0 C Pulse Rate 105 H 108 H 105 H Respiratory Rate 24 H 22 H Blood Pressure 137/82 124/69 Pulse Oximetry 95 96 Oxygen Delivery Oxygen Flow Rate 07/14/25 15:00 07/14/25 16:00 07/14/25 16:00 Temperature 37.0 C Pulse Rate 110 H 109 H Respiratory Rate 24 H Blood Pressure 128/89 Pulse Oximetry 96 97 Oxygen Delivery Nasal Cannula Oxygen Flow Rate 3 07/14/25 16:00 07/14/25 17:00 07/14/25 18:00 Temperature 37.0 C 37.0 C Pulse Rate 107 H 109 H 123 H Respiratory Rate 24 H 24 H Blood Pressure 127/62 132/79 Pulse Oximetry 95 96 Oxygen Delivery Oxygen Flow Rate 07/14/25 18:00 07/14/25 19:00 07/14/25 19:35 Temperature 37.1 C 37.1 C Pulse Rate 123 H 109 H 109 H Respiratory Rate 24 H 22 H 22 H Blood Pressure 122/79 132/73 Pulse Oximetry 97 95 95 Oxygen Delivery Nasal Cannula Oxygen Flow Rate 3 07/14/25 20:00 07/14/25 20:00 07/14/25 20:00 Temperature 37.1 C 37.0 C Pulse Rate 109 H 119 H 114 H Respiratory Rate 25 H 19 Blood Pressure 139/79 139/79 Pulse Oximetry 97 97 Oxygen Delivery Oxygen Flow Rate 07/14/25 20:57 07/14/25 21:00 07/14/25 21:21 Temperature 37.0 C Pulse Rate 115 H 125 H Respiratory Rate 26 H Blood Pressure 140/97 H Pulse Oximetry 95 95 Oxygen Delivery Nasal Cannula Oxygen Flow Rate 3 07/14/25 22:00 07/14/25 22:00 07/14/25 23:00 Temperature 36.9 C 36.9 C Pulse Rate 106 H 99 116 H Respiratory Rate 21 H 23 H Blood Pressure 149/84 H 95/66 L Pulse Oximetry 97 96 Oxygen Delivery Oxygen Flow Rate 07/15/25 00:00 07/15/25 00:00 07/15/25 00:00 Temperature 37.0 C Pulse Rate 110 H 103 H 87 Respiratory Rate 24 H 24 H Blood Pressure 147/83 H Pulse Oximetry 96 97 Oxygen Delivery Nasal Cannula Oxygen Flow Rate 3 07/15/25 00:53 07/15/25 01:00 07/15/25 01:19 Temperature 37.1 C 37.1 C Pulse Rate 153 H 172 H 162 H Respiratory Rate 26 H 21 H Blood Pressure 166/95 H 147/95 H 159/105 H Pulse Oximetry 97 96 Oxygen Delivery Oxygen Flow Rate 07/15/25 01:27 07/15/25 02:00 07/15/25 02:00 Temperature 37.1 C 37.1 C Pulse Rate 109 H 111 H 107 H Respiratory Rate 21 H 23 H Blood Pressure 118/73 145/86 H Pulse Oximetry 96 96 Oxygen Delivery Oxygen Flow Rate 07/15/25 02:00 07/15/25 03:00 07/15/25 03:55 Temperature 37.1 C Pulse Rate 103 H 102 H 102 H Respiratory Rate 24 H 24 H Blood Pressure 145/86 H 116/79 Pulse Oximetry 98 98 Oxygen Delivery Nasal Cannula Oxygen Flow Rate 3 07/15/25 04:00 07/15/25 04:00 07/15/25 04:00 Temperature 37.1 C Pulse Rate 96 107 H 96 Respiratory Rate 23 H Blood Pressure 122/93 H 122/93 H Pulse Oximetry 97 Oxygen Delivery Oxygen Flow Rate 07/15/25 05:00 07/15/25 06:00 07/15/25 06:00 Temperature 37.1 C 37.1 C Pulse Rate 106 H 116 H 117 H Respiratory Rate 22 H 22 H Blood Pressure 146/63 H 135/75 Pulse Oximetry 98 98 Oxygen Delivery Oxygen Flow Rate 07/15/25 06:00 07/15/25 06:00 07/15/25 07:00 Temperature 37.1 C 37.0 C Pulse Rate 116 H 104 H 107 H Respiratory Rate 23 H 23 H Blood Pressure 135/75 135/75 127/57 L Pulse Oximetry 97 98 Oxygen Delivery Oxygen Flow Rate 07/15/25 07:44 07/15/25 08:00 07/15/25 08:00 Temperature 37.1 C Pulse Rate 109 H 109 H Respiratory Rate 20 Blood Pressure 144/110 H 144/110 H Pulse Oximetry 96 96 Oxygen Delivery Nasal Cannula Oxygen Flow Rate 3 07/15/25 08:00 07/15/25 08:00 07/15/25 09:00 Temperature 37.1 C Pulse Rate 105 H 116 H Respiratory Rate 23 H Blood Pressure 154/54 H Pulse Oximetry 96 97 Oxygen Delivery Nasal Cannula Oxygen Flow Rate 3 07/15/25 09:02 07/15/25 10:00 07/15/25 10:00 Temperature 37.2 C Pulse Rate 157 H 117 H 105 H Respiratory Rate 28 H Blood Pressure 131/84 Pulse Oximetry 96 Oxygen Delivery Oxygen Flow Rate 07/15/25 11:00 Temperature 37.0 C Pulse Rate 106 H Respiratory Rate 21 H Blood Pressure 132/88 Pulse Oximetry 97 Oxygen Delivery Oxygen Flow Rate Intake/Output Intake/Output: Intake & Output 07/12/25 07/13/25 07/14/25 07/15/25 23:59 23:59 23:59 23:59 Intake Total 300 800 500 533.4 Output Total 2100 1950 2950 1300 Balance -1800 -1150 -2450 -766.6 Meds/Results Medications: Active Medications Generic Name Dose Route Start Last Admin Trade Name Isabelle PRN Reason Stop Dose Admin Acetaminophen 650 mg 07/07/25 08:10 07/15/25 06:53 Acetaminophen 325 Mg Tablet PO 650 mg Q4H PRN Administration Mild Pain (1-3) or Fever Acetaminophen 650 mg 07/10/25 17:36 07/10/25 21:18 Acetaminophen 650 Mg Suppository RECTAL 650 mg Q6H PRN Administration Fever Dextrose 12.5 gm 07/10/25 15:08 Dextrose 50% 25 Gm/50 Ml Syringe IV PUSH PRN PRN Hypoglycemia Protocol Enoxaparin Sodium 70 mg 07/15/25 09:00 07/15/25 09:01 Enoxaparin 80 Mg/0.8 Ml Syringe SUB-Q 70 mg Q12HR IVONE Administration Glucagon 1 mg 07/10/25 15:08 Glucagon For Inj 1 Mg Vial IM PRN PRN Hypoglycemia Protocol Glucose 15 gm 07/10/25 15:08 Glucose Oral Gel 15 Gm Of Glucse In 37.5 Gm Tube PO PRN PRN Hypoglycemia Protocol Guaifenesin 1,200 mg 07/07/25 21:00 07/10/25 11:01 Guaifenesin 12 Hr 600 Mg Tabcr PO Not Given On Hold: 07/10/25 15:02 Q12HR IVONE Dextrose 1,000 mls @ 100 mls/hr 07/10/25 15:08 Dextrose 5% 1,000 Ml IVPB PRN PRN Hypoglycemia Protocol Doxycycline Hyclate 100 mg/ 100 mls @ 100 mls/hr 07/10/25 21:00 07/15/25 09:55 Sodium Chloride IVPB 07/15/25 20:59 100 mls/hr Q12H IVONE Administration Cefepime HCl 2 gm/ Sodium 50 mls @ 100 mls/hr 07/11/25 10:20 07/15/25 09:02 Chloride IVPB 100 mls/hr Q12HR IVONE Administration Diltiazem HCl 100 mg in 100 mls @ 5 mls/hr 07/15/25 01:10 07/15/25 08:00 Cardizem 100 Mg/100 Ml IV CONT 5 mg/hr On Hold: 07/15/25 11:44 .Q20H IVONE 5 mls/hr Protocol Titration 5 MG/HR Insulin Aspart 3 - 6 units 07/10/25 17:00 07/15/25 09:01 Insulin Aspart (*Bkc) 100 Units/Ml SUB-Q Not Given Q4HR [facility] Protocol Insulin Glargine 10 units 07/12/25 09:00 07/12/25 16:10 Insulin Glargine (*Bkc) 100 Units/Ml SUB-Q Not Given On Hold: 07/13/25 08:23 DAILY IVONE Ipratropium [place] 0.5 mg 07/14/25 08:25 Ipratropium Br 0.02% Inh Soln 0.5 Mg/2.5 Ml Vial INHALATION Q6HRT PRN Wheezing Levalbuterol HCl 0.63 mg 07/14/25 08:25 Levalbuterol Neb 1.25 Mg/3 Ml INHALATION Q6HRT PRN Wheezing Loperamide HCl 2 mg 07/07/25 14:57 Loperamide Hcl 2 Mg Capsule PO On Hold: 07/10/25 15:03 PRN PRN Diarrhea Methylprednisolone Sodium Succinate 10 mg 07/15/25 09:00 07/15/25 09:01 Methylprednisolone Sod Succ 40 Mg Vial IV PUSH 10 mg DAILY IVONE Administration Metoprolol Tartrate 5 mg 07/15/25 11:44 Metoprolol Tartrate Inj 5 Mg/5 Ml Vial IV PUSH Q3H PRN HR > 120 sustained Pantoprazole Sodium 40 mg 07/10/25 15:45 07/15/25 09:01 Pantoprazole Sodium Iv 40 Mg Vial IV PUSH 40 mg QAM IVONE Administration Phenol 1 spray 07/14/25 10:47 Phenol/Sod Pheno [place] (*Bkc) MUCOUS MEM PRN PRN Sore Throat Pramipexole Dihydrochloride 0.5 mg 07/07/25 21:00 07/09/25 20:52 Pramipexole 0.5 Mg Tablet PO 0.5 mg On Hold: 07/10/25 15:03 HS IVONE Administration Pravastatin Sodium 10 mg 07/08/25 09:00 07/10/25 11:02 Pravastatin Sodium 10 Mg Tablet BY MOUTH Not Given On Hold: 07/10/25 15:05 DAILY IVONE Sodium Chloride 20 ml 07/10/25 20:33 Central Line Flush IV PUSH PRN PRN after blood draws Sodium Chloride 10 ml 07/13/25 14:00 07/15/25 05:19 Central Line Flush IV PUSH 10 ml Q8HR IVONE Administration Sodium Chloride 10 ml 07/13/25 08:09 Central Line Flush IV PUSH PRN PRN with TPN bag changes Sodium Chloride 20 ml 07/13/25 08:09 Central Line Flush IV PUSH PRN PRN after blood draws Sotalol HCl 80 mg 07/15/25 09:00 07/15/25 09:02 Sotalol Hcl 80 Mg Tablet FEED TUBE 80 mg Q12HR IVONE Administration Trimethobenzamide HCl 200 mg 07/07/25 14:56 07/12/25 04:26 Trimethobenzamide Hcl 200 Mg/2 Ml Vial IM 200 mg Q6H PRN Administration Nausea And Vomiting Radiology Results: ITS Impressions Cervical Spine CT 07/07/25 06:30 IMPRESSION: HEAD: 1. No acute intracranial findings. 2. Bilateral mastoiditis. C-SPINE: 1. No acute fracture. 2. Ill-defined fluid and postoperative changes posterior to upper cervical spine. 3. Extensive bilateral upper lung airspace disease, and left pleural effusion. Chest/Abdomen/Pelvis CT 07/07/25 07:13 IMPRESSION: 1. Diffuse lung disease, likely a combination of pneumonia in the upper lobes and left lower lobe and mild pulmonary edema. 2. Small pleural effusions. 3. Colitis involving the rectosigmoid. Head CT 07/10/25 15:36 Impression: 1.No acute intracranial abnormality. Abdomen/Pelvis CT 07/13/25 13:46 IMPRESSION: 1. Increased size of pleural effusions which are small to moderate compared to small on the previous exam. Bibasilar atelectatic changes with possible developing consolidation and/or vascular congestion. 2. Fluid and gas dilated rectosigmoid region with findings suggestive of mild colitis and diarrhea process. 3. Extraperitoneal findings of uncertain significance possibly associated with the air foci associated with injections. Correlate clinically to exclude active inflammatory/infectious process in the extra peritoneal soft tissues. NG Tube Placement 07/13/25 14:43 IMPRESSION: 1. Fluoroscopy utilized during placement of a nasogastric tube with distal tip in proximal side port in the body the stomach. Chest X-Ray 07/15/25 09:40 IMPRESSION: 1. No significant change. 2. Left pleural effusion and basilar atelectasis 3. Right effusion poorly seen if it persists. Abdomen X-Ray 07/15/25 09:48 IMPRESSION: 1. Persistent colonic gaseous distention likely secondary to diarrheal process and/or colitis. Labs Labs: Laboratory Results - last 24 hr 07/13/25 07/14/25 07/14/25 14:57 11:00 12:20 WBC RBC Hgb Hct MCV MCH MCHC RDW Plt Count MPV Sodium Potassium Chloride Carbon Dioxide Anion Gap BUN Creatinine Estim Creat Clear Calc Estimated GFR Glucose POC Capillary Glucose 176 H Calcium Magnesium Total Bilirubin AST ALT Alkaline Phosphatase Total Protein Albumin Procalcitonin 0.1 Chlamy pneumoniae PCR Not detected Adenovirus (PCR) Not detected B. pertussis DNA (PCR) Not detected B.parapertussis DNA PCR Not detected Coronavirus OC43 (PCR) Not detected Coronavirus HKU1 (PCR) Not detected Coronavirus 229E (PCR) Not detected Coronavirus NL63 (PCR) Not detected Human Metapneumovir PCR Not detected Influenza A (H1) PCR Not detected Influ A () PCR Not detected Influenza A (H3) PCR Not detected Influenza Type A (PCR) Not detected Influenza Type B (PCR) Not detected M. pneumoniae (PCR) Not detected Parainfluenza 1 (PCR) Not detected Parainfluenza 2 (PCR) Not detected Parainfluenza 3 (PCR) Not detected Parainfluenza 4 (PCR) Not detected RSV (PCR) Not detected Entero/Rhino (PCR) Not detected SARS-CoV-2 (PCR) Not detected 07/14/25 07/14/25 07/14/25 16:20 16:25 19:20 WBC RBC Hgb Hct MCV MCH MCHC RDW Plt Count MPV Sodium 137 Potassium 3.6 Chloride 100 Carbon Dioxide 32 H Anion Gap 5 BUN 30 H Creatinine 0.96 Estim Creat Clear Calc 43 Estimated GFR 57 L Glucose 188 H POC Capillary Glucose 226 H 189 H Calcium 9.0 Magnesium Total Bilirubin AST ALT Alkaline Phosphatase Total Protein Albumin Procalcitonin Chlamy pneumoniae PCR Adenovirus (PCR) B. pertussis DNA (PCR) B.parapertussis DNA PCR Coronavirus OC43 (PCR) Coronavirus HKU1 (PCR) Coronavirus 229E (PCR) Coronavirus NL63 (PCR) Human Metapneumovir PCR Influenza A (H1) PCR Influ A () PCR Influenza A (H3) PCR Influenza Type A (PCR) Influenza Type B (PCR) M. pneumoniae (PCR) Parainfluenza 1 (PCR) Parainfluenza 2 (PCR) Parainfluenza 3 (PCR) Parainfluenza 4 (PCR) RSV (PCR) Entero/Rhino (PCR) SARS-CoV-2 (PCR) 07/14/25 07/15/25 07/15/25 23:42 04:50 09:00 WBC 10.9 H RBC 3.36 L Hgb 9.5 L Hct 32.0 L MCV 95.2 MCH 28.3 MCHC 29.7 L RDW 20.1 H Plt Count 299 MPV 10.2 Sodium 140 Potassium 3.5 Chloride 104 Carbon Dioxide 30 Anion Gap 6 BUN 30 H Creatinine 1.01 H Estim Creat Clear Calc 40 Estimated GFR 54 L Glucose 162 H POC Capillary Glucose 164 H 193 H Calcium 9.0 Magnesium 2.0 Total Bilirubin 0.6 AST 20 ALT 17 Alkaline Phosphatase 161 H Total Protein 5.7 L Albumin 3.2 L Procalcitonin Chlamy pneumoniae PCR Adenovirus (PCR) B. pertussis DNA (PCR) B.parapertussis DNA PCR Coronavirus OC43 (PCR) Coronavirus HKU1 (PCR) Coronavirus 229E (PCR) Coronavirus NL63 (PCR) Human Metapneumovir PCR Influenza A (H1) PCR Influ A (H1/09) PCR Influenza A (H3) PCR Influenza Type A (PCR) Influenza Type B (PCR) M. pneumoniae (PCR) Parainfluenza 1 (PCR) Parainfluenza 2 (PCR) Parainfluenza 3 (PCR) Parainfluenza 4 (PCR) RSV (PCR) Entero/Rhino (PCR) SARS-CoV-2 (PCR) Imaging Attestation: I personally reviewed and interpreted this imaging study as follows: (Plain films of the abdomen from this morning) My impression: Nasogastric tube still in good position. Only colonic dilatation seen. Improved from before. Radiologist's impression: Findings: Gaseous distention of colonic loops from cecum to sigmoid. Small bowel loops not well seen. Air-fluid levels cannot be assessed on supine projection. No other acute bony abnormality.
[2025-07-15] MEDS: FUROSEMIDE INJ 40 MG/4 ML VIAL IV PUSH (12:21)
--- NOTE | 2025-07-15 12:33 | P.PNGI_ITS ---
Progress Note: A&P Assessment and Plan (1) Ileus: Code(s): K56.7 - Ileus, unspecified Status: Acute Assessment and Plan: Patient with multifactorial ileus, currently with no abdominal pain and with good bowel sounds this morning. She is currently trying ice chips and as tolerated with advanced to clear liquids. Will sign off for now, please let us know if there are other issues related to our specialty. Subjective Date/time seen: 07/15/25 12:33 Exam Narrative: Awake alert, oriented x3. Wearing a neck collar and with NG tube in place. Abdomen: Soft, nontender, bowel sounds present, not distended. Objective Data Vital Signs Vital Signs: Vital Signs - 24 hr 07/14/25 13:00 07/14/25 14:00 07/14/25 14:00 Temperature 98.6 F 98.6 F Pulse Rate 105 H 108 H 105 H Respiratory Rate 24 H 22 H Blood Pressure 137/82 124/69 Pulse Oximetry 95 96 Oxygen Delivery Oxygen Flow Rate 07/14/25 15:00 07/14/25 16:00 07/14/25 16:00 Temperature 98.6 F Pulse Rate 110 H 109 H Respiratory Rate 24 H Blood Pressure 128/89 Pulse Oximetry 96 97 Oxygen Delivery Nasal Cannula Oxygen Flow Rate 3 07/14/25 16:00 07/14/25 17:00 07/14/25 18:00 Temperature 98.6 F 98.6 F Pulse Rate 107 H 109 H 123 H Respiratory Rate 24 H 24 H Blood Pressure 127/62 132/79 Pulse Oximetry 95 96 Oxygen Delivery Oxygen Flow Rate 07/14/25 18:00 07/14/25 19:00 07/14/25 19:35 Temperature 98.7 F 98.7 F Pulse Rate 123 H 109 H 109 H Respiratory Rate 24 H 22 H 22 H Blood Pressure 122/79 132/73 Pulse Oximetry 97 95 95 Oxygen Delivery Nasal Cannula Oxygen Flow Rate 3 07/14/25 20:00 07/14/25 20:00 07/14/25 20:00 Temperature 98.7 F 98.6 F Pulse Rate 109 H 119 H 114 H Respiratory Rate 25 H 19 Blood Pressure 139/79 139/79 Pulse Oximetry 97 97 Oxygen Delivery Oxygen Flow Rate 07/14/25 20:57 07/14/25 21:00 07/14/25 21:21 Temperature 98.6 F Pulse Rate 115 H 125 H Respiratory Rate 26 H Blood Pressure 140/97 H Pulse Oximetry 95 95 Oxygen Delivery Nasal Cannula Oxygen Flow Rate 3 07/14/25 22:00 07/14/25 22:00 07/14/25 23:00 Temperature 98.5 F 98.5 F Pulse Rate 106 H 99 116 H Respiratory Rate 21 H 23 H Blood Pressure 149/84 H 95/66 L Pulse Oximetry 97 96 Oxygen Delivery Oxygen Flow Rate 07/15/25 00:00 07/15/25 00:00 07/15/25 00:00 Temperature 98.6 F Pulse Rate 110 H 103 H 87 Respiratory Rate 24 H 24 H Blood Pressure 147/83 H Pulse Oximetry 96 97 Oxygen Delivery Nasal Cannula Oxygen Flow Rate 3 07/15/25 00:53 07/15/25 01:00 07/15/25 01:19 Temperature 98.7 F 98.7 F Pulse Rate 153 H 172 H 162 H Respiratory Rate 26 H 21 H Blood Pressure 166/95 H 147/95 H 159/105 H Pulse Oximetry 97 96 Oxygen Delivery Oxygen Flow Rate 07/15/25 01:27 07/15/25 02:00 07/15/25 02:00 Temperature 98.8 F 98.7 F Pulse Rate 109 H 111 H 107 H Respiratory Rate 21 H 23 H Blood Pressure 118/73 145/86 H Pulse Oximetry 96 96 Oxygen Delivery Oxygen Flow Rate 07/15/25 02:00 07/15/25 03:00 07/15/25 03:55 Temperature 98.7 F Pulse Rate 103 H 102 H 102 H Respiratory Rate 24 H 24 H Blood Pressure 145/86 H 116/79 Pulse Oximetry 98 98 Oxygen Delivery Nasal Cannula Oxygen Flow Rate 3 07/15/25 04:00 07/15/25 04:00 07/15/25 04:00 Temperature 98.7 F Pulse Rate 96 107 H 96 Respiratory Rate 23 H Blood Pressure 122/93 H 122/93 H Pulse Oximetry 97 Oxygen Delivery Oxygen Flow Rate 07/15/25 05:00 07/15/25 06:00 07/15/25 06:00 Temperature 98.8 F 98.7 F Pulse Rate 106 H 116 H 117 H Respiratory Rate 22 H 22 H Blood Pressure 146/63 H 135/75 Pulse Oximetry 98 98 Oxygen Delivery Oxygen Flow Rate 07/15/25 06:00 07/15/25 06:00 07/15/25 07:00 Temperature 98.7 F 98.6 F Pulse Rate 116 H 104 H 107 H Respiratory Rate 23 H 23 H Blood Pressure 135/75 135/75 127/57 L Pulse Oximetry 97 98 Oxygen Delivery Oxygen Flow Rate 07/15/25 07:44 07/15/25 08:00 07/15/25 08:00 Temperature 98.7 F Pulse Rate 109 H 109 H Respiratory Rate 20 Blood Pressure 144/110 H 144/110 H Pulse Oximetry 96 96 Oxygen Delivery Nasal Cannula Oxygen Flow Rate 3 07/15/25 08:00 07/15/25 08:00 07/15/25 09:00 Temperature 98.7 F Pulse Rate 105 H 116 H Respiratory Rate 23 H Blood Pressure 154/54 H Pulse Oximetry 96 97 Oxygen Delivery Nasal Cannula Oxygen Flow Rate 3 07/15/25 09:02 07/15/25 10:00 07/15/25 10:00 Temperature 98.9 F Pulse Rate 157 H 117 H 105 H Respiratory Rate 28 H Blood Pressure 131/84 Pulse Oximetry 96 Oxygen Delivery Oxygen Flow Rate 07/15/25 10:00 07/15/25 11:00 07/15/25 12:00 Temperature 98.6 F Pulse Rate 109 H 106 H 79 Respiratory Rate 21 H Blood Pressure 131/84 132/88 120/76 Pulse Oximetry 97 Oxygen Delivery Oxygen Flow Rate 07/15/25 12:00 07/15/25 12:00 07/15/25 12:00 Temperature 98.4 F Pulse Rate 79 98 Respiratory Rate 23 H Blood Pressure 120/76 Pulse Oximetry 98 98 Oxygen Delivery Nasal Cannula Oxygen Flow Rate 3 Intake/Output Intake/Output: Intake & Output 07/12/25 07/13/25 07/14/25 07/15/25 23:59 23:59 23:59 23:59 Intake Total 300 800 500 553.4 Output Total 2100 1950 2950 1300 Balance -1800 -1150 -2450 -746.6 Meds/Results Medications: Active Medications Generic Name Dose Route Start Last Admin Trade Name Freq PRN Reason Stop Dose Admin Acetaminophen 650 mg 07/07/25 08:10 07/15/25 06:53 Acetaminophen 325 Mg Tablet PO 650 mg Q4H PRN Administration Mild Pain (1-3) or Fever Acetaminophen 650 mg 07/10/25 17:36 07/10/25 21:18 Acetaminophen 650 Mg Suppository RECTAL 650 mg Q6H PRN Administration Fever Dextrose 12.5 gm 07/10/25 15:08 Dextrose 50% 25 Gm/50 Ml Syringe IV PUSH PRN PRN Hypoglycemia Protocol Enoxaparin Sodium 70 mg 07/15/25 09:00 07/15/25 09:01 Enoxaparin 80 Mg/0.8 Ml Syringe SUB-Q 70 mg Q12HR IVONE Administration Glucagon 1 mg 07/10/25 15:08 Glucagon For Inj 1 Mg Vial IM PRN PRN Hypoglycemia Protocol Glucose 15 gm 07/10/25 15:08 Glucose Oral Gel 15 Gm Of Glucse In 37.5 Gm Tube PO PRN PRN Hypoglycemia Protocol Guaifenesin 1,200 mg 07/07/25 21:00 07/10/25 11:01 Guaifenesin 12 Hr 600 Mg Tabcr PO Not Given On Hold: 07/10/25 15:02 Q12HR IVONE Dextrose 1,000 mls @ 100 mls/hr 07/10/25 15:08 Dextrose 5% 1,000 Ml IVPB PRN PRN Hypoglycemia Protocol Doxycycline Hyclate 100 mg/ 100 mls @ 100 mls/hr 07/10/25 21:00 07/15/25 0 9:55 Sodium Chloride IVPB 07/15/25 20:59 100 mls/hr Q12H IVONE Administration Cefepime HCl 2 gm/ Sodium 50 mls @ 100 mls/hr 07/11/25 10:20 07/15/25 09:02 Chloride IVPB 100 mls/hr Q12HR IVONE Administration Diltiazem HCl 100 mg in 100 mls @ 5 mls/hr 07/15/25 01:10 07/15/25 12:00 Cardizem 100 Mg/100 Ml IV CONT 0 mg/hr On Hold: 07/15/25 11:44 .Q20H IVONE 0 mls/hr Protocol Titration 5 MG/HR Insulin Aspart 3 - 6 units 07/10/25 17:00 07/15/25 12:21 Insulin Aspart (*Bkc) 100 Units/Ml SUB-Q Not Given Q4HR IVONE Protocol Insulin Glargine 10 units 07/12/25 09:00 07/12/25 16:10 Insulin Glargine (*Bkc) 100 Units/Ml SUB-Q Not Given On Hold: 07/13/25 08:23 DAILY IVONE Ipratropium [place] 0.5 mg 07/14/25 08:25 Ipratropium Br 0.02% Inh Soln 0.5 Mg/2.5 Ml Vial INHALATION Q6HRT PRN Wheezing Levalbuterol HCl 0.63 mg 07/14/25 08:25 Levalbuterol Neb 1.25 Mg/3 Ml INHALATION Q6HRT PRN Wheezing Loperamide HCl 2 mg 07/07/25 14:57 Loperamide Hcl 2 Mg Capsule PO On Hold: 07/10/25 15:03 PRN PRN Diarrhea Methylprednisolone Sodium Succinate 10 mg 07/15/25 09:00 07/15/25 09:01 Methylprednisolone Sod Succ 40 Mg Vial IV PUSH 10 mg DAILY IVONE Administration Metoprolol Tartrate 5 mg 07/15/25 11:44 Metoprolol Tartrate Inj 5 Mg/5 Ml Vial IV PUSH Q3H PRN HR > 120 sustained Pantoprazole Sodium 40 mg 07/10/25 15:45 07/15/25 09:01 Pantoprazole Sodium Iv 40 Mg Vial IV PUSH 40 mg QAM IVONE Administration Phenol 1 spray 07/14/25 10:47 Phenol/Sod Pheno [place] (*Bkc) MUCOUS MEM PRN PRN Sore Throat Pramipexole Dihydrochloride 0.5 mg 07/07/25 21:00 07/09/25 20:52 Pramipexole 0.5 Mg Tablet PO 0.5 mg On Hold: 07/10/25 15:03 HS IVONE Administration Pravastatin Sodium 10 mg 07/08/25 09:00 07/10/25 11:02 Pravastatin Sodium 10 Mg Tablet BY MOUTH Not Given On Hold: 07/10/25 15:05 DAILY IVONE Sodium Chloride 20 ml 07/10/25 20:33 Central Line Flush IV PUSH PRN PRN after blood draws Sodium Chloride 10 ml 07/13/25 14:00 07/15/25 12:21 Central Line Flush IV PUSH 10 ml Q8HR IVONE Administration Sodium Chloride 10 ml 07/13/25 08:09 Central Line Flush IV PUSH PRN PRN with TPN bag changes Sodium Chloride 20 ml 07/13/25 08:09 Central Line Flush IV PUSH PRN PRN after blood draws Sotalol HCl 80 mg 07/15/25 09:00 07/15/25 09:02 Sotalol Hcl 80 Mg Tablet FEED TUBE 80 mg Q12HR IVONE Administration Trimethobenzamide HCl 200 mg 07/07/25 14:56 07/12/25 04:26 Trimethobenzamide Hcl 200 Mg/2 Ml Vial IM 200 mg Q6H PRN Administration Nausea And Vomiting Radiology Results: ITS Impressions Cervical Spine CT 07/07/25 06:30 IMPRESSION: HEAD: 1. No acute intracranial findings. 2. Bilateral mastoiditis. C-SPINE: 1. No acute fracture. 2. Ill-defined fluid and postoperative changes posterior to upper cervical spine. 3. Extensive bilateral upper lung airspace disease, and left pleural effusion. Chest/Abdomen/Pelvis CT 07/07/25 07:13 IMPRESSION: 1. Diffuse lung disease, likely a combination of pneumonia in the upper lobes and left lower lobe and mild pulmonary edema. 2. Small pleural effusions. 3. Colitis involving the rectosigmoid. Head CT 07/10/25 15:36 Impression: 1.No acute intracranial abnormality. Abdomen/Pelvis CT 07/13/25 13:46 IMPRESSION: 1. Increased size of pleural effusions which are small to moderate compared to small on the previous exam. Bibasilar atelectatic changes with possible developing consolidation and/or vascular congestion. 2. Fluid and gas dilated rectosigmoid region with findings suggestive of mild colitis and diarrhea process. 3. Extraperitoneal findings of uncertain significance possibly associated with the air foci associated with injections. Correlate clinically to exclude active inflammatory/infectious process in the extra peritoneal soft tissues. NG Tube Placement 07/13/25 14:43 IMPRESSION: 1. Fluoroscopy utilized during placement of a nasogastric tube with distal tip in proximal side port in the body the stomach. Chest X-Ray 07/15/25 09:40 IMPRESSION: 1. No significant change. 2. Left pleural effusion and basilar atelectasis 3. Right effusion poorly seen if it persists. Abdomen X-Ray 07/15/25 09:48 IMPRESSION: 1. Persistent colonic gaseous distention likely secondary to diarrheal process and/or colitis. Labs Labs: Laboratory Results - last 24 hr 07/13/25 07/14/25 07/14/25 14:57 16:20 16:25 WBC RBC Hgb Hct MCV MCH MCHC RDW Plt Count MPV Sodium 137 Potassium 3.6 Chloride 100 Carbon Dioxide 32 H Anion Gap 5 BUN 30 H Creatinine 0.96 Estim Creat Clear Calc 43 Estimated GFR 57 L Glucose 188 H POC Capillary Glucose 226 H Calcium 9.0 Magnesium Total Bilirubin AST ALT Alkaline Phosphatase Total Protein Albumin Chlamy pneumoniae PCR Not detected Adenovirus (PCR) Not detected B. pertussis DNA (PCR) Not detected B.parapertussis DNA PCR Not detected Coronavirus OC43 (PCR) Not detected Coronavirus HKU1 (PCR) Not detected Coronavirus 229E (PCR) Not detected Coronavirus NL63 (PCR) Not detected Human Metapneumovir PCR Not detected Influenza A (H1) PCR Not detected Influ A (H1) PCR Not detected Influenza A (H3) PCR Not detected Influenza Type A (PCR) Not detected Influenza Type B (PCR) Not detected M. pneumoniae (PCR) Not detected Parainfluenza 1 (PCR) Not detected Parainfluenza 2 (PCR) Not detected Parainfluenza 3 (PCR) Not detected Parainfluenza 4 (PCR) Not detected RSV (PCR) Not detected Entero/Rhino (PCR) Not detected SARS-CoV-2 (PCR) Not detected 07/14/25 07/14/25 07/15/25 19:20 23:42 04:50 WBC 10.9 H RBC 3.36 L Hgb 9.5 L Hct 32.0 L MCV 95.2 MCH 28.3 MCHC 29.7 L RDW 20.1 H Plt Count 299 MPV 10.2 Sodium 140 Potassium 3.5 Chloride 104 Carbon Dioxide 30 Anion Gap 6 BUN 30 H Creatinine 1.01 H Estim Creat Clear Calc 40 Estimated GFR 54 L Glucose 162 H POC Capillary Glucose 189 H 164 H Calcium 9.0 Magnesium 2.0 Total Bilirubin 0.6 AST 20 ALT 17 Alkaline Phosphatase 161 H Total Protein 5.7 L Albumin 3.2 L Chlamy pneumoniae PCR Adenovirus (PCR) B. pertussis DNA (PCR) B.parapertussis DNA PCR Coronavirus OC43 (PCR) Coronavirus HKU1 (PCR) Coronavirus 229E (PCR) Coronavirus NL63 (PCR) Human Metapneumovir PCR Influenza A (H1) PCR Influ A () PCR Influenza A (H3) PCR Influenza Type A (PCR) Influenza Type B (PCR) M. pneumoniae (PCR) Parainfluenza 1 (PCR) Parainfluenza 2 (PCR) Parainfluenza 3 (PCR) Parainfluenza 4 (PCR) RSV (PCR) Entero/Rhino (PCR) SARS-CoV-2 (PCR) 07/15/25 07/15/25 09:00 12:16 WBC RBC Hgb Hct MCV MCH MCHC RDW Plt Count MPV Sodium Potassium Chloride Carbon Dioxide Anion Gap BUN Creatinine Estim Creat Clear Calc Estimated GFR Glucose POC Capillary Glucose 193 H 189 H Calcium Magnesium Total Bilirubin AST ALT Alkaline Phosphatase Total Protein Albumin Chlamy pneumoniae PCR Adenovirus (PCR) B. pertussis DNA (PCR) B.parapertussis DNA PCR Coronavirus OC43 (PCR) Coronavirus HKU1 (PCR) Coronavirus 229E (PCR) Coronavirus NL63 (PCR) Human Metapneumovir PCR Influenza A (H1) PCR Influ A (H1/09) PCR Influenza A (H3) PCR Influenza Type A (PCR) Influenza Type B (PCR) M. pneumoniae (PCR) Parainfluenza 1 (PCR) Parainfluenza 2 (PCR) Parainfluenza 3 (PCR) Parainfluenza 4 (PCR) RSV (PCR) Entero/Rhino (PCR) SARS-CoV-2 (PCR)
[2025-07-15] MEDS: INSULIN ASPART (*BKC) 100 UNITS/ML SUB-Q ×2 (17:19→20:15)
[2025-07-16] VITALS (17 sets, daily range): BP systolic 95–154; BP diastolic 51–93; PULSE 61–99; RESP 15–25; TEMP 36.6–37.7; O2SAT 94–100
[2025-07-16 05:47] LABS: Hematocrit 31.8 % (37.0-47.0); Hemoglobin 9.4 g/dL (12.0-15.0); Mean Corpuscular HGB Conc 29.6 g/dl (32-36); Mean Corpuscular Hemoglobin 28.0 pg (26-34); Mean Corpuscular Volume 94.6 fl (80-100); Platelet Count Result 261 k/mm3 (150-375); Red Blood Count 3.36 M/mm3 (4.2-5.4); White Blood Count 10.7 K/mm3 (4.5-10.0)
[2025-07-16 06:29] LABS: Alanine Aminotransferase 15 U/L (6-35); Albumin Level 2.9 g/dL (3.5-5.1); Alkaline Phosphatase 143 U/L (38-126); Anion Gap 2 mmol/L (4-12); Aspartate Amino Transferase 22 U/L (14-36); Bilirubin,Total 0.6 mg/dL (0.2-1.3); Blood Urea Nitrogen 27 mg/dL (7-17); Calcium 8.6 mg/dL (8.4-10.2); Carbon Dioxide 32 mmol/L (22-30); Chloride 101 mmol/L (98-107); Estimated CRCL calculation 41 ml/min; Estimated Glomerular Filt Rate 55; Glucose 126 mg/dL (65-110); Magnesium 1.8 mg/dL (1.6-2.3); Potassium 3.0 mmol/L (3.4-5.0); Sodium 135 mmol/L (137-145); Total Protein 5.3 g/dL (6.3-8.2)
[2025-07-16] MEDS: CENTRAL LINE FLUSH 10 ML IV PUSH ×3 (06:47→22:45)
[2025-07-16] MEDS: CEFEPIME 2 GM in SODIUM CHLORIDE 0.9% IV 50 ML 100 ML IVPB (08:15)
[2025-07-16] MEDS: ENOXAPARIN 80 MG/0.8 ML SYRINGE 70 MG SUB-Q ×2 (08:15→22:15)
[2025-07-16] MEDS: POTASSIUM CHLORIDE 20 MEQ PACKET (FOR LIQUID) 40 MEQ FEED TUBE ×2 (08:16→12:25)
[2025-07-16] MEDS: PANTOPRAZOLE SODIUM IV 40 MG VIAL IV PUSH (08:16)
[2025-07-16] MEDS: PRAVASTATIN SODIUM 10 MG TABLET BY MOUTH (08:16)
--- NOTE | 2025-07-16 08:23 | P.PNCA_ITS ---
Progress Note: A&P Assessment and Plan (1) Paroxysmal atrial fibrillation: Code(s): I48.0 - Paroxysmal atrial fibrillation Status: Chronic Assessment and Plan: In Sinus rhythm with frequent short runs of atrial tachycardia due to PAT. Back on Sotalol 80 mg BID. Normally on Xarelto. On Metoprolol prn for tachycardia. 07/11/25 Echo: EF 65-70%, mod LVH, diastolic dysfunction with E/e' 26, mild LAE, mod MAC, trace MR, mod TR, RVSP 60 mmHg, trace PI. Sotalol was on hold due to ileus. 07/15/25 Resumed Sotalol 80 mg BID to maintain sinus rhythm. As an outpatient may benefit from ablation. No further cardiac workup is needed. Will sign off, please call with any questions. (2) Essential hypertension: Code(s): I10 - Essential (primary) hypertension Status: Acute Assessment and Plan: Stable. (3) Dyslipidemia: Code(s): E78.5 - Hyperlipidemia, unspecified Status: Acute Assessment and Plan: On Pravastatin. 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 (5) Chronic obstructive pulmonary disease, unspecified: Code(s): J44.9 - Chronic obstructive pulmonary disease, unspecified Status: Acute (6) Pneumonia: Qualifiers: Laterality: bilateral Lung location: unspecified part of lung Pneumonia type: due to unspecified organism Qualified Code(s): J18.9 - Pneumonia, unspecified organism Code(s): J18.9 - Pneumonia, unspecified organism Status: Acute Assessment and Plan: On antibiotics as per hospitalist. (7) UTI (urinary tract infection): Code(s): N39.0 - Urinary tract infection, site not specified Status: Acute Assessment and Plan: On antibiotics as per hospitalist. Subjective Date/time seen: 07/16/25 08:23 Interval history: Alert and oriented. No chest pain or sob. Exam Const: General: cooperative, healthy appearing, comfortable, ill appearing and other (on CPAP) Resp: Auscultation: no crackles, no rales, no rhonchi, no wheezes and diminished lung sounds Cardio: Rate: regular rate Rhythm: regular rhythm Heart sounds: no murmurs Peripheral pulses: dorsalis pedis present Extrem: Right lower extremity: no edema Left lower extremity: no edema Objective Data Vital Signs Vital Signs: Vital Signs - 24 hr 07/15/25 09:00 07/15/25 09:02 07/15/25 10:00 Temperature 98.7 F 98.9 F Pulse Rate 116 H 157 H 117 H Respiratory Rate 23 H 28 H Blood Pressure 154/54 H 131/84 Pulse Oximetry 97 96 Oxygen Delivery Oxygen Flow Rate Fraction of Inspired Oxygen 07/15/25 10:00 07/15/25 10:00 07/15/25 11:00 Temperature 98.6 F Pulse Rate 105 H 109 H 106 H Respiratory Rate 21 H Blood Pressure 131/84 132/88 Pulse Oximetry 97 Oxygen Delivery Oxygen Flow Rate Fraction of Inspired Oxygen 07/15/25 12:00 07/15/25 12:00 07/15/25 12:00 Temperature 98.4 F Pulse Rate 79 79 98 Respiratory Rate 23 H Blood Pressure 120/76 120/76 Pulse Oximetry 98 Oxygen Delivery Oxygen Flow Rate Fraction of Inspired Oxygen 07/15/25 12:00 07/15/25 13:00 07/15/25 14:00 Temperature 99.3 F Pulse Rate 77 71 Respiratory Rate 23 H Blood Pressure 127/73 Pulse Oximetry 98 99 Oxygen Delivery Nasal Cannula Oxygen Flow Rate 3 Fraction of Inspired Oxygen 07/15/25 14:00 07/15/25 14:00 07/15/25 15:00 Temperature 99.3 F 98.8 F Pulse Rate 71 66 91 Respiratory Rate 16 20 Blood Pressure 127/74 127/74 124/51 L Pulse Oximetry 98 95 Oxygen Delivery Oxygen Flow Rate Fraction of Inspired Oxygen 07/15/25 16:00 07/15/25 16:00 07/15/25 16:00 Temperature 98.8 F Pulse Rate 81 67 Respiratory Rate 19 Blood Pressure 135/50 L Pulse Oximetry 97 97 Oxygen Delivery Nasal Cannula Oxygen Flow Rate 3 Fraction of Inspired Oxygen 07/15/25 16:15 07/15/25 17:00 07/15/25 18:00 Temperature 98.7 F Pulse Rate 89 93 100 Respiratory Rate 21 H Blood Pressure 135/50 L 135/94 H Pulse Oximetry 97 Oxygen Delivery Oxygen Flow Rate Fraction of Inspired Oxygen 07/15/25 18:00 07/15/25 19:00 07/15/25 20:00 Temperature 99.4 F 98.6 F Pulse Rate 100 127 H 80 Respiratory Rate 25 H 18 Blood Pressure 118/60 124/74 113/76 Pulse Oximetry 97 98 Oxygen Delivery Oxygen Flow Rate Fraction of Inspired Oxygen 07/15/25 20:00 07/15/25 20:00 07/15/25 20:00 Temperature 99.4 F Pulse Rate 80 108 H 80 Respiratory Rate 27 H 27 H Blood Pressure 113/76 Pulse Oximetry 98 98 Oxygen Delivery Nasal Cannula Oxygen Flow Rate 3 Fraction of Inspired Oxygen 07/15/25 20:18 07/15/25 21:00 07/15/25 21:22 Temperature 99.4 F Pulse Rate 103 H 76 82 Respiratory Rate 19 20 Blood Pressure 107/68 Pulse Oximetry 94 93 Oxygen Delivery Nasal Cannula Oxygen Flow Rate 3 Fraction of Inspired Oxygen 32 07/15/25 22:00 07/15/25 22:00 07/15/25 22:00 Temperature 99.2 F Pulse Rate 83 83 83 Respiratory Rate 22 H Blood Pressure 118/63 118/63 Pulse Oximetry 97 Oxygen Delivery Oxygen Flow Rate Fraction of Inspired Oxygen 07/15/25 23:00 07/16/25 00:00 07/16/25 00:00 Temperature 99.1 F 98.9 F Pulse Rate 68 69 99 Respiratory Rate 13 19 Blood Pressure 126/87 103/57 L Pulse Oximetry 97 100 Oxygen Delivery Oxygen Flow Rate Fraction of Inspired Oxygen 07/16/25 00:00 07/16/25 00:00 07/16/25 01:00 Temperature 98.8 F Pulse Rate 69 69 61 Respiratory Rate 19 15 Blood Pressure 103/57 L 116/61 Pulse Oximetry 100 99 Oxygen Delivery Nasal Cannula Oxygen Flow Rate 3 Fraction of Inspired Oxygen 07/16/25 02:00 07/16/25 02:00 07/16/25 02:00 Temperature 98.5 F Pulse Rate 76 76 61 Respiratory Rate 17 Blood Pressure 123/58 L 123/58 L Pulse Oximetry 100 Oxygen Delivery Oxygen Flow Rate Fraction of Inspired Oxygen 07/16/25 03:00 07/16/25 04:00 07/16/25 04:00 Temperature 98.0 F 98.6 F Pulse Rate 79 74 61 Respiratory Rate 19 22 H Blood Pressure 154/93 H 106/52 L 106/52 L Pulse Oximetry 100 100 Oxygen Delivery Oxygen Flow Rate Fraction of Inspired Oxygen 07/16/25 04:00 07/16/25 04:00 07/16/25 05:00 Temperature 98.8 F Pulse Rate 61 70 92 Respiratory Rate 19 23 H Blood Pressure 95/74 L Pulse Oximetry 100 98 Oxygen Delivery Nasal Cannula Oxygen Flow Rate 3 Fraction of Inspired Oxygen 07/16/25 06:00 07/16/25 06:00 07/16/25 06:00 Temperature 98.9 F Pulse Rate 83 83 89 Respiratory Rate 17 Blood Pressure 134/51 L 134/51 L Pulse Oximetry 97 Oxygen Delivery Oxygen Flow Rate Fraction of Inspired Oxygen 07/16/25 07:00 07/16/25 08:00 Temperature 98.8 F 98.9 F Pulse Rate 87 87 Respiratory Rate 23 H 23 H Blood Pressure 145/65 H 126/67 Pulse Oximetry 97 95 Oxygen Delivery Oxygen Flow Rate Fraction of Inspired Oxygen Intake/Output Intake/Output: Intake & Output 07/13/25 07/14/25 07/15/25 07/16/25 23:59 23:59 23:59 23:59 Intake Total 698 720 5950.4 200 Output Total 1950 2950 2125 550 Balance -1150 -2450 -671.6 -350 Meds/Results Medications: Active Medications Generic Name Dose Route Start Last Admin Trade Name Freq PRN Reason Stop Dose Admin Acetaminophen 650 mg 07/07/25 08:10 07/15/25 13:04 Acetaminophen 325 Mg Tablet PO 650 mg Q4H PRN Administration Mild Pain (1-3) or Fever Acetaminophen 650 mg 07/10/25 17:36 07/10/25 21:18 Acetaminophen 650 Mg Suppository RECTAL 650 mg Q6H PRN Administration Fever Dextrose 12.5 gm 07/10/25 15:08 Dextrose 50% 25 Gm/50 Ml Syringe IV PUSH PRN PRN Hypoglycemia Protocol Enoxaparin Sodium 70 mg 07/15/25 09:00 07/16/25 08:15 Enoxaparin 80 Mg/0.8 Ml Syringe SUB-Q 70 mg Q12HR IVONE Administration Glucagon 1 mg 07/10/25 15:08 Glucagon For Inj 1 Mg Vial IM PRN PRN Hypoglycemia Protocol Glucose 15 gm 07/10/25 15:08 Glucose Oral Gel 15 Gm Of Glucse In 37.5 Gm Tube PO PRN PRN Hypoglycemia Protocol Dextrose 1,000 mls @ 100 mls/hr 07/10/25 15:08 Dextrose 5% 1,000 Ml IVPB PRN PRN Hypoglycemia Protocol Cefepime HCl 2 gm/ Sodium 50 mls @ 100 mls/hr 07/11/25 10:20 07/16/25 08:15 Chloride IVPB 100 mls/hr Q12HR IVONE Administration Insulin Aspart 3 - 6 units 07/10/25 17:00 07/16/25 08:16 Insulin Aspart (*Bkc) 100 Units/Ml SUB-Q Not Given Q4HR IVONE Protocol Insulin Glargine 10 units 07/12/25 09:00 07/12/25 16:10 Insulin Glargine (*Bkc) 100 Units/Ml SUB-Q Not Given On Hold: 07/13/25 08:23 DAILY IVONE Ipratropium [place] 0.5 mg 07/14/25 08:25 Ipratropium Br 0.02% Inh Soln 0.5 Mg/2.5 Ml Vial INHALATION Q6HRT PRN Wheezing Levalbuterol HCl 0.63 mg 07/14/25 08:25 Levalbuterol Neb 1.25 Mg/3 Ml INHALATION Q6HRT PRN Wheezing Loperamide HCl 2 mg 07/07/25 14:57 Loperamide Hcl 2 Mg Capsule PO On Hold: 07/10/25 15:03 PRN PRN Diarrhea Methylprednisolone Sodium Succinate 10 mg 07/15/25 09:00 07/16/25 08:16 Methylprednisolone Sod Succ 40 Mg Vial IV PUSH 10 mg DAILY IVONE Administration Metoprolol Tartrate 5 mg 07/15/25 11:44 Metoprolol Tartrate Inj 5 Mg/5 Ml Vial IV PUSH Q3H PRN HR > 120 sustained Pantoprazole Sodium 40 mg 07/10/25 15:45 07/16/25 08:16 Pantoprazole Sodium Iv 40 Mg Vial IV PUSH 40 mg QAM IVONE Administration Phenol 1 spray 07/14/25 10:47 Phenol/Sod Pheno [place] (*Bkc) MUCOUS MEM PRN PRN Sore Throat Potassium Chloride 40 meq 07/16/25 07:35 07/16/25 08:16 Potassium Chloride 20 Meq Packet (For Liquid) FEED TUBE 07/16/25 13:36 40 meq Q6H IVONE Administration Pramipexole Dihydrochloride 0.5 mg 07/07/25 21:00 07/09/25 20:52 Pramipexole 0.5 Mg Tablet PO 0.5 mg HS IVONE Administration Pravastatin Sodium 10 mg 07/08/25 09:00 07/16/25 08:16 Pravastatin Sodium 10 Mg Tablet BY MOUTH 10 mg DAILY IVONE Administration Sodium Chloride 20 ml 07/10/25 20:33 Central Line Flush IV PUSH PRN PRN after blood draws Sodium Chloride 10 ml 07/13/25 14:00 07/16/25 06:47 Central Line Flush IV PUSH 10 ml Q8HR IVONE Administration Sodium Chloride 10 ml 07/13/25 08:09 Central Line Flush IV PUSH PRN PRN with TPN bag changes Sodium Chloride 20 ml 07/13/25 08:09 Central Line Flush IV PUSH PRN PRN after blood draws Sotalol HCl 80 mg 07/15/25 09:00 07/15/25 20:18 Sotalol Hcl 80 Mg Tablet FEED TUBE 80 mg Q12HR IVONE Administration Trimethobenzamide HCl 200 mg 07/07/25 14:56 07/12/25 04:26 Trimethobenzamide Hcl 200 Mg/2 Ml Vial IM 200 mg Q6H PRN Administration Nausea And Vomiting Radiology Results: ITS Impressions Cervical Spine CT 07/07/25 06:30 IMPRESSION: HEAD: 1. No acute intracranial findings. 2. Bilateral mastoiditis. C-SPINE: 1. No acute fracture. 2. Ill-defined fluid and postoperative changes posterior to upper cervical spine. 3. Extensive bilateral upper lung airspace disease, and left pleural effusion. Chest/Abdomen/Pelvis CT 07/07/25 07:13 IMPRESSION: 1. Diffuse lung disease, likely a combination of pneumonia in the upper lobes and left lower lobe and mild pulmonary edema. 2. Small pleural effusions. 3. Colitis involving the rectosigmoid. Head CT 07/10/25 15:36 Impression: 1.No acute intracranial abnormality. Abdomen/Pelvis CT 07/13/25 13:46 IMPRESSION: 1. Increased size of pleural effusions which are small to moderate compared to small on the previous exam. Bibasilar atelectatic changes with possible developing consolidation and/or vascular congestion. 2. Fluid and gas dilated rectosigmoid region with findings suggestive of mild colitis and diarrhea process. 3. Extraperitoneal findings of uncertain significance possibly associated with the air foci associated with injections. Correlate clinically to exclude active inflammatory/infectious process in the extra peritoneal soft tissues. NG Tube Placement 07/13/25 14:43 IMPRESSION: 1. Fluoroscopy utilized during placement of a nasogastric tube with distal tip in proximal side port in the body the stomach. Labs Labs: Laboratory Results - last 24 hr 07/15/25 07/15/25 07/15/25 09:00 12:16 17:09 WBC RBC Hgb Hct MCV MCH MCHC RDW Plt Count MPV Sodium Potassium Chloride Carbon Dioxide Anion Gap BUN Creatinine Estim Creat Clear Calc Estimated GFR Glucose POC Capillary Glucose 193 H 189 H 208 H Calcium Magnesium Total Bilirubin AST ALT Alkaline Phosphatase Total Protein Albumin 07/15/25 07/15/25 07/16/25 20:08 23:35 05:24 WBC RBC Hgb Hct MCV MCH MCHC RDW Plt Count MPV Sodium 135 L Potassium 3.0 L Chloride 101 Carbon Dioxide 32 H Anion Gap 2 L BUN 27 H Creatinine 0.99 Estim Creat Clear Calc 41 Estimated GFR 55 L Glucose 126 H POC Capillary Glucose 280 H 170 H Calcium 8.6 Magnesium 1.8 Total Bilirubin 0.6 AST 22 ALT 15 Alkaline Phosphatase 143 H Total Protein 5.3 L Albumin 2.9 L 07/16/25 07/16/25 05:34 07:55 WBC 10.7 H RBC 3.36 L Hgb 9.4 L Hct 31.8 L MCV 94.6 MCH 28.0 MCHC 29.6 L RDW 19.4 H Plt Count 261 MPV 10.6 H Sodium Potassium Chloride Carbon Dioxide Anion Gap BUN Creatinine Estim Creat Clear Calc Estimated GFR Glucose POC Capillary Glucose 133 H Calcium Magnesium Total Bilirubin AST ALT Alkaline Phosphatase Total Protein Albumin
--- NOTE | 2025-07-16 08:25 | WPDINTPN ---
Progress Note: A&P Assessment and Plan (1) Ileus: Code(s): K56.7 - Ileus, unspecified Status: Acute Assessment and Plan: Patient complained of abdominal pain, abdominal obstructive series showed dilated bowel loops 07/14 CT abdomen pelvis did not show any obstruction NG tube is in place but is clamped. No nausea vomiting. Patient tolerating clear liquid diet Will discontinue NG tube. Advance to full liquid diet. GI and general surgery following Monitor (2) Encephalopathy: Code(s): G93.40 - Encephalopathy, unspecified Status: Acute Assessment and Plan: Likely related to hypercapnic respiratory failure, sepsis/infection, pretty obtunded, unable to open her eyes or follow simple commands, placed on AVAPS mode on presentation -07/10: Repeat head CT: No acute intracranial abnormality -ammonia levels were normal <9. Improved now and patient is now AO x3 (3) Acute and chronic respiratory failure: Code(s): J96.20 - Acute and chronic respiratory failure, unspecified whether with hypoxia or hypercapnia Status: Acute Assessment and Plan: Acute hypercapnic respiratory failure likely related to multifactorial issues, patient has a history of COPD, pulmonary hypertension, CHF, sarcoidosis, interstitial lung disease, now here with urinary tract infection, fall On presentation patient was placed on AVAPS -hypercapnia has resolved and patient is now alert oriented None imaging shows combination of pulmonary edema pleural effusions and pneumonia Continue ceftriaxone and doxycycline (07/07) for course She has responded well to diuretics. Oxygen requirement is down to 3 L nasal cannula Continue incentive spirometry Change bronchodilators p.r.n. to minimize tachycardia Continue home steroid dose for sarcoidosis Up in chair (4) Sepsis: Code(s): A41.9 - Sepsis, unspecified organism Status: Acute Assessment and Plan: Patient presented with a fall, altered mental status, urinary tract infection -07/07: Urine cultures growing Enterobacter cloaca and Proteus penneri, both of them a susceptible to cefepime -07/07: Blood cultures no growth x2 -07/10: Urine Legionella and streptococcal antigen pending -continue cefepime and doxycycline (07/11) UTI and pneumonia. Off vancomycin (5) Acute exacerbation of chronic obstructive pulmonary disease: Code(s): J44.1 - Chronic obstructive pulmonary disease with (acute) exacerbation Status: Acute Assessment and Plan: Oxygen therapy as above. P.r.n. bronchodilators. Off steroids Antibiotics as above (6) UTI (urinary tract infection): Code(s): N39.0 - Urinary tract infection, site not specified Status: Acute Assessment and Plan: Continue antibiotics as above, urine culture as above (7) Paroxysmal atrial fibrillation: Code(s): I48.0 - Paroxysmal atrial fibrillation Status: Chronic Assessment and Plan: Patient with history of paroxysmal AFib with intermittent rapid ventricular response, she does nonsustained tachycardia -patient was started on amiodarone overnight Patient was Restarted on sotalol after discussion with Cardiology, amiodarone was turned off. Later due to ileus p.o. medications. 07/14 due to frequent tachycardia patient was started on Cardizem infusion. She was on rivaroxaban but was held as patient was NPO, Also her anticoagulation was stopped by Cardiology as she has had a fall. Dr. Allen discussed with Cardiology regarding anticoagulation, Dr. Sorensen, stated that her in the mostly is atrial tachycardia and not atrial fibrillation and the risk for strokes is much decreased, he would like to wait on anticoagulation. Case was discussed with Dr. Holly. Plan to resume sotalol today. If patient tolerates will transition to sotalol and p.r.n. Lopressor and get her off Cardizem infusion. 07/16 continue p.o. sotalol. Patient is off Cardizem infusion. Continue IV p.r.n. Lopressor.. Continue therapeutic dose Lovenox at this time. If patient tolerates p.o. 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: Qualifiers: Diabetes mellitus longterm insulin use: without superintendent [employer] use Qualified Code(s): E11.21 - Type 2 diabetes mellitus with diabetic nephropathy Code(s): E11.21 - Type 2 diabetes mellitus with diabetic nephropathy Status: Acute Assessment and Plan: Continue SSI (9) Sarcoid: Code(s): D86.9 - Sarcoidosis, unspecified Status: Acute Assessment and Plan: Recently diagnosed sarcoidosis and [facility] -patient's calcium level a within normal limits -weaning Solu-Medrol to 20 mg IV daily, will keep her on a maintenance dose of Solu-Medrol for sarcoidosis until she can start taking oral prednisone (10) Pulmonary hypertension: Code(s): I27.20 - Pulmonary hypertension, unspecified Status: Acute Assessment and Plan: History of pulmonary hypertension, likely related to sleep apnea, sarcoidosis, interstitial lung disease, coronary artery disease, COPD/: Pulmonology 11/21/2022: Echocardiogram RVSP was 59 mmHg Cardiology following the patient for atrial fibrillation and atrial tachycardia 07/11/2025: Echocardiogram Summary 1. Definity contrast administered improved wall motion interpretation. 2. Left ventricular chamber dimension is normal. 3. Left ventricular systolic function is normal, estimated at 65-70. 4. There is moderate concentric increased left ventricular wall thickness. 5. The left ventricular diastolic function is abnormal. 6. E/e' 26 is significantly elevated. 7. Right ventricular systolic function is reduced based on an abnormal TAPSE 1.4 cm. 8. Left atrial chamber dimension is mildly enlarged. 9. There is moderate aortic valve sclerosis. 10. The mitral valve has a moderately calcified annulus. 11. There is trace mitral valve regurgitation. 12. There is moderate tricuspid valve regurgitation. 13. Severe pulmonary hypertension, estimated pulmonary arterial systolic pressure is 60 mmHg. 14. There is trace pulmonic regurgitation. (11) Fall: Code(s): W19.XXXA - Unspecified fall, initial encounter Status: Acute Assessment and Plan: Patient presented with a fall on 07/07 -status post fusion of C2-C6 at [facility] on 06/26/2025 for cervical myelopathy -07/07: CT cervical spine showed fluid collection at the surgical site. Neurosurgery at [facility] evaluated the patient, no drainage from her incision and hardware was well-positioned, the neurosurgery team had no additional recommendations. -PT OT has been ordered (12) Pressure ulcer: Code(s): L89.90 - Pressure ulcer of unspecified site, unspecified stage Status: Acute Assessment and Plan: Stage III pressure ulcer on coccyx and sacrum -wound care following Plan DVT prophylaxis: Lovenox Stress ulcer prophylaxis: Protonix Nutrition: Full liquid diet Code Status: Full code Transfer out of ICU today Subjective Date/time seen: 07/16/25 Overnight events reviewed. Afebrile On 3 L nasal cannula. Sinus rhythm tolerating clear liquid diet. NG tube is clamped. No nausea vomiting. She had bowel movements overnight all other vital signs stable Good urine output in response to diuretics Feels much better denies any new complaints. States abdominal pain has resolved. All other systems were reviewed and were negative Review of Systems Review of Systems: All systems reviewed & are unremarkable except as noted in HPI and below Exam Narrative: General: Ill-appearing female, appears older than her stated age HEENT:? pupils equal and reactive, sclera is clear, HFNC in place Neck:? Hard cervical collar in place Respiratory: Improved air entry bilaterally, decreased at bases, occasional crackles at bases Cardiac:? Irregularly irregular, rate controlled Abdomen:? Soft, no tenderness on exam, bowel sounds are present NG tube in place Extremities:? Upper extremities edematous, palpable pedal pulses on lower extremities Neuro:? Awake, alert, oriented x3 able to answer questions and follows simple commands in all 4 extremities Skin:? Bruising noted on upper extremities Psych:? Normal mentation, depressed affect Objective Data Vital Signs Vital Signs: Vital Signs - 24 hr 07/15/25 09:00 07/15/25 09:02 07/15/25 10:00 Temperature 37.1 C 37.2 C Pulse Rate 116 H 157 H 117 H Respiratory Rate 23 H 28 H Blood Pressure 154/54 H 131/84 Pulse Oximetry 97 96 Oxygen Delivery Oxygen Flow Rate Fraction of Inspired Oxygen 07/15/25 10:00 07/15/25 10:00 07/15/25 11:00 Temperature 37.0 C Pulse Rate 105 H 109 H 106 H Respiratory Rate 21 H Blood Pressure 131/84 132/88 Pulse Oximetry 97 Oxygen Delivery Oxygen Flow Rate Fraction of Inspired Oxygen 07/15/25 12:00 07/15/25 12:00 07/15/25 12:00 Temperature 36.9 C Pulse Rate 79 79 98 Respiratory Rate 23 H Blood Pressure 120/76 120/76 Pulse Oximetry 98 Oxygen Delivery Oxygen Flow Rate Fraction of Inspired Oxygen 07/15/25 12:00 07/15/25 13:00 07/15/25 14:00 Temperature 37.4 C Pulse Rate 77 71 Respiratory Rate 23 H Blood Pressure 127/73 Pulse Oximetry 98 99 Oxygen Delivery Nasal Cannula Oxygen Flow Rate 3 Fraction of Inspired Oxygen 07/15/25 14:00 07/15/25 14:00 07/15/25 15:00 Temperature 37.4 C 37.1 C Pulse Rate 71 66 91 Respiratory Rate 16 20 Blood Pressure 127/74 127/74 124/51 L Pulse Oximetry 98 95 Oxygen Delivery Oxygen Flow Rate Fraction of Inspired Oxygen 07/15/25 16:00 07/15/25 16:00 07/15/25 16:00 Temperature 37.1 C Pulse Rate 81 67 Respiratory Rate 19 Blood Pressure 135/50 L Pulse Oximetry 97 97 Oxygen Delivery Nasal Cannula Oxygen Flow Rate 3 Fraction of Inspired Oxygen 07/15/25 16:15 07/15/25 17:00 07/15/25 18:00 Temperature 37.1 C Pulse Rate 89 93 100 Respiratory Rate 21 H Blood Pressure 135/50 L 135/94 H Pulse Oximetry 97 Oxygen Delivery Oxygen Flow Rate Fraction of Inspired Oxygen 07/15/25 18:00 07/15/25 19:00 07/15/25 20:00 Temperature 37.4 C 37.0 C Pulse Rate 100 127 H 80 Respiratory Rate 25 H 18 Blood Pressure 118/60 124/74 113/76 Pulse Oximetry 97 98 Oxygen Delivery Oxygen Flow Rate Fraction of Inspired Oxygen 07/15/25 20:00 07/15/25 20:00 07/15/25 20:00 Temperature 37.4 C Pulse Rate 80 108 H 80 Respiratory Rate 27 H 27 H Blood Pressure 113/76 Pulse Oximetry 98 98 Oxygen Delivery Nasal Cannula Oxygen Flow Rate 3 Fraction of Inspired Oxygen 07/15/25 20:18 07/15/25 21:00 07/15/25 21:22 Temperature 37.4 C Pulse Rate 103 H 76 82 Respiratory Rate 19 20 Blood Pressure 107/68 Pulse Oximetry 94 93 Oxygen Delivery Nasal Cannula Oxygen Flow Rate 3 Fraction of Inspired Oxygen 32 07/15/25 22:00 07/15/25 22:00 07/15/25 22:00 Temperature 37.3 C Pulse Rate 83 83 83 Respiratory Rate 22 H Blood Pressure 118/63 118/63 Pulse Oximetry 97 Oxygen Delivery Oxygen Flow Rate Fraction of Inspired Oxygen 07/15/25 23:00 07/16/25 00:00 07/16/25 00:00 Temperature 37.3 C 37.2 C Pulse Rate 68 69 99 Respiratory Rate 13 19 Blood Pressure 126/87 103/57 L Pulse Oximetry 97 100 Oxygen Delivery Oxygen Flow Rate Fraction of Inspired Oxygen 07/16/25 00:00 07/16/25 00:00 07/16/25 01:00 Temperature 37.1 C Pulse Rate 69 69 61 Respiratory Rate 19 15 Blood Pressure 103/57 L 116/61 Pulse Oximetry 100 99 Oxygen Delivery Nasal Cannula Oxygen Flow Rate 3 Fraction of Inspired Oxygen 07/16/25 02:00 07/16/25 02:00 07/16/25 02:00 Temperature 36.9 C Pulse Rate 76 76 61 Respiratory Rate 17 Blood Pressure 123/58 L 123/58 L Pulse Oximetry 100 Oxygen Delivery Oxygen Flow Rate Fraction of Inspired Oxygen 07/16/25 03:00 07/16/25 04:00 07/16/25 04:00 Temperature 36.7 C 37.0 C Pulse Rate 79 74 61 Respiratory Rate 19 22 H Blood Pressure 154/93 H 106/52 L 106/52 L Pulse Oximetry 100 100 Oxygen Delivery Oxygen Flow Rate Fraction of Inspired Oxygen 07/16/25 04:00 07/16/25 04:00 07/16/25 05:00 Temperature 37.1 C Pulse Rate 61 70 92 Respiratory Rate 19 23 H Blood Pressure 95/74 L Pulse Oximetry 100 98 Oxygen Delivery Nasal Cannula Oxygen Flow Rate 3 Fraction of Inspired Oxygen 07/16/25 06:00 07/16/25 06:00 07/16/25 06:00 Temperature 37.2 C Pulse Rate 83 83 89 Respiratory Rate 17 Blood Pressure 134/51 L 134/51 L Pulse Oximetry 97 Oxygen Delivery Oxygen Flow Rate Fraction of Inspired Oxygen 07/16/25 07:00 07/16/25 08:00 Temperature 37.1 C 37.2 C Pulse Rate 87 87 Respiratory Rate 23 H 23 H Blood Pressure 145/65 H 126/67 Pulse Oximetry 97 95 Oxygen Delivery Oxygen Flow Rate Fraction of Inspired Oxygen Intake/Output Intake/Output: Intake & Output 07/13/25 07/14/25 07/15/25 07/16/25 23:59 23:59 23:59 23:59 Intake Total 536 014 2918.4 200 Output Total 1950 2950 2125 550 Balance -1150 -2450 -671.6 -350 Meds/Results Medications: Active Medications Generic Name Dose Route Start Last Admin Trade Name Freq PRN Reason Stop Dose Admin Acetaminophen 650 mg 07/07/25 08:10 07/15/25 13:04 Acetaminophen 325 Mg Tablet PO 650 mg Q4H PRN Administration Mild Pain (1-3) or Fever Acetaminophen 650 mg 07/10/25 17:36 07/10/25 21:18 Acetaminophen 650 Mg Suppository RECTAL 650 mg Q6H PRN Administration Fever Dextrose 12.5 gm 07/10/25 15:08 Dextrose 50% 25 Gm/50 Ml Syringe IV PUSH PRN PRN Hypoglycemia Protocol Enoxaparin Sodium 70 mg 07/15/25 09:00 07/16/25 08:15 Enoxaparin 80 Mg/0.8 Ml Syringe SUB-Q 70 mg Q12HR IVONE Administration Glucagon 1 mg 07/10/25 15:08 Glucagon For Inj 1 Mg Vial IM PRN PRN Hypoglycemia Protocol Glucose 15 gm 07/10/25 15:08 Glucose Oral Gel 15 Gm Of Glucse In 37.5 Gm Tube PO PRN PRN Hypoglycemia Protocol Dextrose 1,000 mls @ 100 mls/hr 07/10/25 15:08 Dextrose 5% 1,000 Ml IVPB PRN PRN Hypoglycemia Protocol Cefepime HCl 2 gm/ Sodium 50 mls @ 100 mls/hr 07/11/25 10:20 07/16/25 08:15 Chloride IVPB 100 mls/hr Q12HR IVONE Administration Insulin Aspart 3 - 6 units 07/10/25 17:00 07/16/25 08:16 Insulin Aspart (*Bkc) 100 Units/Ml SUB-Q Not Given Q4HR COUNT INCLUDES THE [facility] Protocol Insulin Glargine 10 units 07/12/25 09:00 07/12/25 16:10 Insulin Glargine (*Bkc) 100 Units/Ml SUB-Q Not Given On Hold: 07/13/25 08:23 DAILY IVONE Ipratropium [place] 0.5 mg 07/14/25 08:25 Ipratropium Br 0.02% Inh Soln 0.5 Mg/2.5 Ml Vial INHALATION Q6HRT PRN Wheezing Levalbuterol HCl 0.63 mg 07/14/25 08:25 Levalbuterol Neb 1.25 Mg/3 Ml INHALATION Q6HRT PRN Wheezing Loperamide HCl 2 mg 07/07/25 14:57 Loperamide Hcl 2 Mg Capsule PO On Hold: 07/10/25 15:03 PRN PRN Diarrhea Methylprednisolone Sodium Succinate 10 mg 07/15/25 09:00 07/16/25 08:16 Methylprednisolone Sod Succ 40 Mg Vial IV PUSH 10 mg DAILY IVONE Administration Metoprolol Tartrate 5 mg 07/15/25 11:44 Metoprolol Tartrate Inj 5 Mg/5 Ml Vial IV PUSH Q3H PRN HR > 120 sustained Pantoprazole Sodium 40 mg 07/10/25 15:45 07/16/25 08:16 Pantoprazole Sodium Iv 40 Mg Vial IV PUSH 40 mg QAM IVONE Administration Phenol 1 spray 07/14/25 10:47 Phenol/Sod Pheno [place] (*Bkc) MUCOUS MEM PRN PRN Sore Throat Potassium Chloride 40 meq 07/16/25 07:35 07/16/25 08:16 Potassium Chloride 20 Meq Packet (For Liquid) FEED TUBE 07/16/25 13:36 40 meq Q6H IVONE Administration Pramipexole Dihydrochloride 0.5 mg 07/07/25 21:00 07/09/25 20:52 Pramipexole 0.5 Mg Tablet PO 0.5 mg HS IVONE Administration Pravastatin Sodium 10 mg 07/08/25 09:00 07/16/25 08:16 Pravastatin Sodium 10 Mg Tablet BY MOUTH 10 mg DAILY IVONE Administration Sodium Chloride 20 ml 07/10/25 20:33 Central Line Flush IV PUSH PRN PRN after blood draws Sodium Chloride 10 ml 07/13/25 14:00 07/16/25 06:47 Central Line Flush IV PUSH 10 ml Q8HR IVONE Administration Sodium Chloride 10 ml 07/13/25 08:09 Central Line Flush IV PUSH PRN PRN with TPN bag changes Sodium Chloride 20 ml 07/13/25 08:09 Central Line Flush IV PUSH PRN PRN after blood draws Sotalol HCl 80 mg 07/15/25 09:00 07/15/25 20:18 Sotalol Hcl 80 Mg Tablet FEED TUBE 80 mg Q12HR IVONE Administration Trimethobenzamide HCl 200 mg 07/07/25 14:56 07/12/25 04:26 Trimethobenzamide Hcl 200 Mg/2 Ml Vial IM 200 mg Q6H PRN Administration Nausea And Vomiting Radiology Results: ITS Impressions Cervical Spine CT 07/07/25 06:30 IMPRESSION: HEAD: 1. No acute intracranial findings. 2. Bilateral mastoiditis. C-SPINE: 1. No acute fracture. 2. Ill-defined fluid and postoperative changes posterior to upper cervical spine. 3. Extensive bilateral upper lung airspace disease, and left pleural effusion. Chest/Abdomen/Pelvis CT 07/07/25 07:13 IMPRESSION: 1. Diffuse lung disease, likely a combination of pneumonia in the upper lobes and left lower lobe and mild pulmonary edema. 2. Small pleural effusions. 3. Colitis involving the rectosigmoid. Head CT 07/10/25 15:36 Impression: 1.No acute intracranial abnormality. Abdomen/Pelvis CT 07/13/25 13:46 IMPRESSION: 1. Increased size of pleural effusions which are small to moderate compared to small on the previous exam. Bibasilar atelectatic changes with possible developing consolidation and/or vascular congestion. 2. Fluid and gas dilated rectosigmoid region with findings suggestive of mild colitis and diarrhea process. 3. Extraperitoneal findings of uncertain significance possibly associated with the air foci associated with injections. Correlate clinically to exclude active inflammatory/infectious process in the extra peritoneal soft tissues. NG Tube Placement 07/13/25 14:43 IMPRESSION: 1. Fluoroscopy utilized during placement of a nasogastric tube with distal tip in proximal side port in the body the stomach. Labs Labs: Laboratory Results - last 24 hr 07/15/25 07/15/25 07/15/25 09:00 12:16 17:09 WBC RBC Hgb Hct MCV MCH MCHC RDW Plt Count MPV Sodium Potassium Chloride Carbon Dioxide Anion Gap BUN Creatinine Estim Creat Clear Calc Estimated GFR Glucose POC Capillary Glucose 193 H 189 H 208 H Calcium Magnesium Total Bilirubin AST ALT Alkaline Phosphatase Total Protein Albumin 07/15/25 07/15/25 07/16/25 20:08 23:35 05:24 WBC RBC Hgb Hct MCV MCH MCHC RDW Plt Count MPV Sodium 135 L Potassium 3.0 L Chloride 101 Carbon Dioxide 32 H Anion Gap 2 L BUN 27 H Creatinine 0.99 Estim Creat Clear Calc 41 Estimated GFR 55 L Glucose 126 H POC Capillary Glucose 280 H 170 H Calcium 8.6 Magnesium 1.8 Total Bilirubin 0.6 AST 22 ALT 15 Alkaline Phosphatase 143 H Total Protein 5.3 L Albumin 2.9 L 07/16/25 07/16/25 05:34 07:55 WBC 10.7 H RBC 3.36 L Hgb 9.4 L Hct 31.8 L MCV 94.6 MCH 28.0 MCHC 29.6 L RDW 19.4 H Plt Count 261 MPV 10.6 H Sodium Potassium Chloride Carbon Dioxide Anion Gap BUN Creatinine Estim Creat Clear Calc Estimated GFR Glucose POC Capillary Glucose 133 H Calcium Magnesium Total Bilirubin AST ALT Alkaline Phosphatase Total Protein Albumin Quality VTE Prophylaxis VTE prophylaxis: mechanical ordered
[2025-07-16] MEDS: SOTALOL HCL 80 MG TABLET FEED TUBE (08:26)
[2025-07-16] MEDS: INSULIN ASPART (*BKC) 100 UNITS/ML SUB-Q ×3 (12:25→22:15)
--- NOTE | 2025-07-16 12:31 | PM.PNGS ---
Progress Note: A&P Assessment and Plan (1) Ileus: Code(s): K56.7 - Ileus, unspecified Status: Acute Assessment and Plan: NG tube is out. She has a normal abdominal exam and is having bowel movements. Agree with advancing diet as tolerated. We will sign off. 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 Plan is for up to chair today. Subjective Subjective Date/Time Seen: 07/16/25 12:31 Patient reports: no new complaints, pain is less, tolerating liquids well, bowel movement and afebrile Review of Systems Review of Systems: All systems reviewed & are unremarkable except as noted in HPI and below (HPI) Objective Data Vital Signs Vital Signs: Vital Signs - 24 hr 07/15/25 13:00 07/15/25 14:00 07/15/25 14:00 Temperature 37.4 C 37.4 C Pulse Rate 77 71 71 Respiratory Rate 23 H 16 Blood Pressure 127/73 127/74 Pulse Oximetry 99 98 Oxygen Delivery Oxygen Flow Rate Fraction of Inspired Oxygen 07/15/25 14:00 07/15/25 15:00 07/15/25 16:00 Temperature 37.1 C 37.1 C Pulse Rate 66 91 81 Respiratory Rate 20 19 Blood Pressure 127/74 124/51 L 135/50 L Pulse Oximetry 95 97 Oxygen Delivery Oxygen Flow Rate Fraction of Inspired Oxygen 07/15/25 16:00 07/15/25 16:00 07/15/25 16:15 Temperature Pulse Rate 67 89 Respiratory Rate Blood Pressure 135/50 L Pulse Oximetry 97 Oxygen Delivery Nasal Cannula Oxygen Flow Rate 3 Fraction of Inspired Oxygen 07/15/25 17:00 07/15/25 18:00 07/15/25 18:00 Temperature 37.1 C 37.4 C Pulse Rate 93 100 100 Respiratory Rate 21 H 25 H Blood Pressure 135/94 H 118/60 Pulse Oximetry 97 97 Oxygen Delivery Oxygen Flow Rate Fraction of Inspired Oxygen 07/15/25 19:00 07/15/25 20:00 07/15/25 20:00 Temperature 37.0 C Pulse Rate 127 H 80 80 Respiratory Rate 18 27 H Blood Pressure 124/74 113/76 Pulse Oximetry 98 98 Oxygen Delivery Nasal Cannula Oxygen Flow Rate 3 Fraction of Inspired Oxygen 07/15/25 20:00 07/15/25 20:00 07/15/25 20:18 Temperature 37.4 C Pulse Rate 108 H 80 103 H Respiratory Rate 27 H Blood Pressure 113/76 Pulse Oximetry 98 Oxygen Delivery Oxygen Flow Rate Fraction of Inspired Oxygen 07/15/25 21:00 07/15/25 21:22 07/15/25 22:00 Temperature 37.4 C Pulse Rate 76 82 83 Respiratory Rate 19 20 Blood Pressure 107/68 Pulse Oximetry 94 93 Oxygen Delivery Nasal Cannula Oxygen Flow Rate 3 Fraction of Inspired Oxygen 32 07/15/25 22:00 07/15/25 22:00 07/15/25 23:00 Temperature 37.3 C 37.3 C Pulse Rate 83 83 68 Respiratory Rate 22 H 13 Blood Pressure 118/63 118/63 126/87 Pulse Oximetry 97 97 Oxygen Delivery Oxygen Flow Rate Fraction of Inspired Oxygen 07/16/25 00:00 07/16/25 00:00 07/16/25 00:00 Temperature 37.2 C Pulse Rate 69 99 69 Respiratory Rate 19 19 Blood Pressure 103/57 L Pulse Oximetry 100 100 Oxygen Delivery Nasal Cannula Oxygen Flow Rate 3 Fraction of Inspired Oxygen 07/16/25 00:00 07/16/25 01:00 07/16/25 02:00 Temperature 37.1 C Pulse Rate 69 61 76 Respiratory Rate 15 Blood Pressure 103/57 L 116/61 123/58 L Pulse Oximetry 99 Oxygen Delivery Oxygen Flow Rate Fraction of Inspired Oxygen 07/16/25 02:00 07/16/25 02:00 07/16/25 03:00 Temperature 36.9 C 36.7 C Pulse Rate 76 61 79 Respiratory Rate 17 19 Blood Pressure 123/58 L 154/93 H Pulse Oximetry 100 100 Oxygen Delivery Oxygen Flow Rate Fraction of Inspired Oxygen 07/16/25 04:00 07/16/25 04:00 07/16/25 04:00 Temperature 37.0 C Pulse Rate 74 61 61 Respiratory Rate 22 H 19 Blood Pressure 106/52 L 106/52 L Pulse Oximetry 100 100 Oxygen Delivery Nasal Cannula Oxygen Flow Rate 3 Fraction of Inspired Oxygen 07/16/25 04:00 07/16/25 05:00 07/16/25 06:00 Temperature 37.1 C 37.2 C Pulse Rate 70 92 83 Respiratory Rate 23 H 17 Blood Pressure 95/74 L 134/51 L Pulse Oximetry 98 97 Oxygen Delivery Oxygen Flow Rate Fraction of Inspired Oxygen 07/16/25 06:00 07/16/25 06:00 07/16/25 07:00 Temperature 37.1 C Pulse Rate 83 89 87 Respiratory Rate 23 H Blood Pressure 134/51 L 145/65 H Pulse Oximetry 97 Oxygen Delivery Oxygen Flow Rate Fraction of Inspired Oxygen 07/16/25 08:00 07/16/25 08:00 07/16/25 08:00 Temperature 37.2 C Pulse Rate 87 92 Respiratory Rate 23 H Blood Pressure 126/67 Pulse Oximetry 95 100 Oxygen Delivery Nasal Cannula Oxygen Flow Rate 3 Fraction of Inspired Oxygen 07/16/25 08:26 07/16/25 09:00 07/16/25 10:00 Temperature 37.3 C 37.6 C H Pulse Rate 71 97 81 Respiratory Rate 25 H 22 H Blood Pressure 114/52 L 124/67 Pulse Oximetry 100 100 Oxygen Delivery Oxygen Flow Rate Fraction of Inspired Oxygen 07/16/25 11:00 07/16/25 12:00 07/16/25 12:00 Temperature 37.7 C H 37.7 C H Pulse Rate 78 78 Respiratory Rate 18 19 Blood Pressure 116/56 L 124/79 Pulse Oximetry 99 97 97 Oxygen Delivery Nasal Cannula Oxygen Flow Rate 3 Fraction of Inspired Oxygen Intake/Output Intake/Output: Intake & Output 07/13/25 07/14/25 07/15/25 07/16/25 23:59 23:59 23:59 23:59 Intake Total 102 121 1448.4 875 Output Total 1950 2950 2125 550 Balance -1150 -2450 -671.6 325 Meds/Results Medications: Active Medications Generic Name Dose Route Start Last Admin Trade Name Freq PRN Reason Stop Dose Admin Acetaminophen 650 mg 07/07/25 08:10 07/15/25 13:04 Acetaminophen 325 Mg Tablet PO 650 mg Q4H PRN Administration Mild Pain (1-3) or Fever Acetaminophen 650 mg 07/10/25 17:36 07/10/25 21:18 Acetaminophen 650 Mg Suppository RECTAL 650 mg Q6H PRN Administration Fever Dextrose 12.5 gm 07/10/25 15:08 Dextrose 50% 25 Gm/50 Ml Syringe IV PUSH PRN PRN Hypoglycemia Protocol Enoxaparin Sodium 70 mg 07/15/25 09:00 07/16/25 08:15 Enoxaparin 80 Mg/0.8 Ml Syringe SUB-Q 70 mg Q12HR IVONE Administration Glucagon 1 mg 07/10/25 15:08 Glucagon For Inj 1 Mg Vial IM PRN PRN Hypoglycemia Protocol Glucose 15 gm 07/10/25 15:08 Glucose Oral Gel 15 Gm Of Glucse In 37.5 Gm Tube PO PRN PRN Hypoglycemia Protocol Dextrose 1,000 mls @ 100 mls/hr 07/10/25 15:08 Dextrose 5% 1,000 Ml IVPB PRN PRN Hypoglycemia Protocol Cefepime HCl 2 gm/ Sodium 50 mls @ 100 mls/hr 07/11/25 10:20 07/16/25 08:15 Chloride IVPB 100 mls/hr Q12HR IVONE Administration Insulin Aspart 3 - 6 units 07/10/25 17:00 07/16/25 12:25 Insulin Aspart (*Bkc) 100 Units/Ml SUB-Q 5 units Q4HR IVONE Administration Protocol Insulin Glargine 10 units 07/12/25 09:00 07/12/25 16:10 Insulin Glargine (*Bkc) 100 Units/Ml SUB-Q Not Given On Hold: 07/13/25 08:23 DAILY IVONE Ipratropium [place] 0.5 mg 07/14/25 08:25 Ipratropium Br 0.02% Inh Soln 0.5 Mg/2.5 Ml Vial INHALATION Q6HRT PRN Wheezing Levalbuterol HCl 0.63 mg 07/14/25 08:25 Levalbuterol Neb 1.25 Mg/3 Ml INHALATION Q6HRT PRN Wheezing Loperamide HCl 2 mg 07/07/25 14:57 Loperamide Hcl 2 Mg Capsule PO On Hold: 07/10/25 15:03 PRN PRN Diarrhea Methylprednisolone Sodium Succinate 10 mg 07/15/25 09:00 07/16/25 08:16 Methylprednisolone Sod Succ 40 Mg Vial IV PUSH 10 mg DAILY IVONE Administration Metoprolol Tartrate 5 mg 07/15/25 11:44 Metoprolol Tartrate Inj 5 Mg/5 Ml Vial IV PUSH Q3H PRN HR > 120 sustained Pantoprazole Sodium 40 mg 07/10/25 15:45 07/16/25 08:16 Pantoprazole Sodium Iv 40 Mg Vial IV PUSH 40 mg QAM IVONE Administration Phenol 1 spray 07/14/25 10:47 Phenol/Sod Pheno [place] (*Bkc) MUCOUS MEM PRN PRN Sore Throat Potassium Chloride 40 meq 07/16/25 07:35 07/16/25 12:25 Potassium Chloride 20 Meq Packet (For Liquid) FEED TUBE 07/16/25 13:36 40 meq Q6H IVONE Administration Pramipexole Dihydrochloride 0.5 mg 07/07/25 21:00 07/09/25 20:52 Pramipexole 0.5 Mg Tablet PO 0.5 mg HS IVONE Administration Pravastatin Sodium 10 mg 07/08/25 09:00 07/16/25 08:16 Pravastatin Sodium 10 Mg Tablet BY MOUTH 10 mg DAILY IVONE Administration Sodium Chloride 20 ml 07/10/25 20:33 Central Line Flush IV PUSH PRN PRN after blood draws Sodium Chloride 10 ml 07/13/25 14:00 07/16/25 06:47 Central Line Flush IV PUSH 10 ml Q8HR IVONE Administration Sodium Chloride 10 ml 07/13/25 08:09 Central Line Flush IV PUSH PRN PRN with TPN bag changes Sodium Chloride 20 ml 07/13/25 08:09 Central Line Flush IV PUSH PRN PRN after blood draws Sotalol HCl 80 mg 07/15/25 09:00 07/16/25 08:26 Sotalol Hcl 80 Mg Tablet FEED TUBE 80 mg Q12HR IVONE Administration Trimethobenzamide HCl 200 mg 07/07/25 14:56 07/12/25 04:26 Trimethobenzamide Hcl 200 Mg/2 Ml Vial IM 200 mg Q6H PRN Administration Nausea And Vomiting Radiology Results: ITS Impressions Cervical Spine CT 07/07/25 06:30 IMPRESSION: HEAD: 1. No acute intracranial findings. 2. Bilateral mastoiditis. C-SPINE: 1. No acute fracture. 2. Ill-defined fluid and postoperative changes posterior to upper cervical spine. 3. Extensive bilateral upper lung airspace disease, and left pleural effusion. Chest/Abdomen/Pelvis CT 07/07/25 07:13 IMPRESSION: 1. Diffuse lung disease, likely a combination of pneumonia in the upper lobes and left lower lobe and mild pulmonary edema. 2. Small pleural effusions. 3. Colitis involving the rectosigmoid. Head CT 07/10/25 15:36 Impression: 1.No acute intracranial abnormality. Abdomen/Pelvis CT 07/13/25 13:46 IMPRESSION: 1. Increased size of pleural effusions which are small to moderate compared to small on the previous exam. Bibasilar atelectatic changes with possible developing consolidation and/or vascular congestion. 2. Fluid and gas dilated rectosigmoid region with findings suggestive of mild colitis and diarrhea process. 3. Extraperitoneal findings of uncertain significance possibly associated with the air foci associated with injections. Correlate clinically to exclude active inflammatory/infectious process in the extra peritoneal soft tissues. NG Tube Placement 07/13/25 14:43 IMPRESSION: 1. Fluoroscopy utilized during placement of a nasogastric tube with distal tip in proximal side port in the body the stomach. Chest X-Ray 07/16/25 11:13 IMPRESSION: 1. No significant change. 2. Left pleural effusion with associated basilar atelectasis persist. 3. Right pleural effusion poorly seen if it persists. Abdomen X-Ray 07/16/25 11:17 IMPRESSION: 1. Persistent but decreased colonic gaseous distention, likely due to diarrheal process and/or colitis. Labs Labs: Laboratory Results - last 24 hr 07/15/25 07/15/25 07/15/25 17:09 20:08 23:35 WBC RBC Hgb Hct MCV MCH MCHC RDW Plt Count MPV Sodium Potassium Chloride Carbon Dioxide Anion Gap BUN Creatinine Estim Creat Clear Calc Estimated GFR Glucose POC Capillary Glucose 208 H 280 H 170 H Calcium Magnesium Total Bilirubin AST ALT Alkaline Phosphatase Total Protein Albumin 07/16/25 07/16/25 07/16/25 05:24 05:34 07:55 WBC 10.7 H RBC 3.36 L Hgb 9.4 L Hct 31.8 L MCV 94.6 MCH 28.0 MCHC 29.6 L RDW 19.4 H Plt Count 261 MPV 10.6 H Sodium 135 L Potassium 3.0 L Chloride 101 Carbon Dioxide 32 H Anion Gap 2 L BUN 27 H Creatinine 0.99 Estim Creat Clear Calc 41 Estimated GFR 55 L Glucose 126 H POC Capillary Glucose 133 H Calcium 8.6 Magnesium 1.8 Total Bilirubin 0.6 AST 22 ALT 15 Alkaline Phosphatase 143 H Total Protein 5.3 L Albumin 2.9 L 07/16/25 11:40 WBC RBC Hgb Hct MCV MCH MCHC RDW Plt Count MPV Sodium Potassium Chloride Carbon Dioxide Anion Gap BUN Creatinine Estim Creat Clear Calc Estimated GFR Glucose POC Capillary Glucose 327 H Calcium Magnesium Total Bilirubin AST ALT Alkaline Phosphatase Total Protein Albumin Imaging Attestation: I personally reviewed and interpreted this imaging study as follows: (Plain film of the abdomen today) My impression: Still has entire colon noted due to gaseous distension. Much less distended than yesterday or the days before. Very close to normal. Radiologist's impression: Same
--- NOTE | 2025-07-16 13:15 | P.PNIM_ITS ---
Progress Note: A&P Assessment and Plan (1) Sarcoid: Code(s): D86.9 - Sarcoidosis, unspecified Status: Acute (2) Ileus: Code(s): K56.7 - Ileus, unspecified Status: Acute Plan Debility -PT OT consulted -patient may benefit from inpatient rehab -discussed with case management Ileus, resolved -KUB concerning for worsening dilated loops of bowel -appreciate GI consult: Advanced diet as tolerated -appreciate general surgical consultation: Advanced diet as tolerated -abdominal CT scan with contrast 07/13: Including dilated rectosigmoid concerning for colitis, no SBO -NG tube placed by IR 07/13, now removed Multifocal atrial tachycardia, improved Paroxysmal atrial fibrillation, improved -patient has paroxysmal atrial fibrillation on Xarelto and rate control with sotalol -currently patient appears to have atrial tachycardia heart rate fluctuating from 90 to 140s -appreciate Cardiology consultation Dr. Sorensen: Continue sotalol, outpatient referral for EP ablation -history of paroxysmal atrial fibrillation Acute hypoxic respiratory failure Community-acquired pneumonia Sarcoidosis -patient on heated high-flow oxygen changed to nasal cannula 3L, not on bipap -appreciate pulmonology management -antibiotics: Completed empirically 5 days of antibiotics vancomycin/cefepime, doxycycline -MRSA nares positive -steroids: Solu-Medrol 20->10 mg IV push daily -holding Lasix Chronic conditions-if she tolerates p.o. intake will resume all p.o. meds -type 2 diabetes: Monitor glucose, resuming glargine 10 units daily, sliding scale insulin -polymyalgia rheumatica: Steroid -pulmonary hypertension: Diuretic -recent c-spine surgery. Posterior cervical decompression and fusion C2-6 at [facility] on 06/26/25 keep c-collar on for [address] Lowry. C-collar in place. I am requesting records from [facility] where it was placed -hyperlipidemia: Pravastatin -RLS: Mirapex, Robaxin -essential hypertension: Losartan -supplements: D3 Diet: Advance to full liquids, likely advance as tolerated to solid food tomorrow DVT prophylaxis: SCDs, home on Xarelto, Lovenox 1mg/kg for now GI prophylaxis: Protonix Code status: Full code Disposition: Downgrade to medical floor, anticipate discharge Thursday Time Spent With Patient Time: 35 minutes Subjective Date/time seen: 07/16/25 13:15 Interval history: Patient seen and examined patient is tolerating full liquid diet. NG tube has been removed. She is clinically improved. Will continue Solu-Medrol at 10 mg. Will likely advance diet tomorrow. PT OT consulted. Anticipate discharge soon. Family is hoping for SCAR, I discussed with case management. Downgrade from ICU to medical floor today. updated at bedside. Anticipate discharge Thursday. Review of Systems Review of Systems: 10 point ROS complete, negative other th an what is specified in HPI. Exam Narrative: - GENERAL: Pleasant chronically ill-lior earing elderly woman in No acute distress - EYES: EOMI. Anicteric. - HENT: Moist mucous membranes. C-colla r in place, NG tube removed - LUNGS: Clear to auscultation, on 3 L oxygen nasal cannula - CARDIOVASCULAR: Regular rate and rhyt hm - ABDOMEN: Soft, nondistended, nontender , bowel sounds present - EXTREMITIES: No edema. Peripheral puls es 2+. - NEUROLOGIC: No focal neurological defi cits. CN II-XII grossly intact. - PSYCHIATRIC: Awake, Alert and oriented x 3. Appropriate mood and affect. Objective Data Vital Signs Vital Signs: Vital Signs - 24 hr 07/15/25 14:00 07/15/25 14:00 07/15/25 14:00 Temperature 37.4 C Pulse Rate 71 71 66 Respiratory Rate 16 Blood Pressure 127/74 127/74 Pulse Oximetry 98 Oxygen Delivery Oxygen Flow Rate Fraction of Inspired Oxygen 07/15/25 15:00 07/15/25 16:00 07/15/25 16:00 Temperature 37.1 C 37.1 C Pulse Rate 91 81 Respiratory Rate 20 19 Blood Pressure 124/51 L 135/50 L Pulse Oximetry 95 97 97 Oxygen Delivery Nasal Cannula Oxygen Flow Rate 3 Fraction of Inspired Oxygen 07/15/25 16:00 07/15/25 16:15 07/15/25 17:00 Temperature 37.1 C Pulse Rate 67 89 93 Respiratory Rate 21 H Blood Pressure 135/50 L 135/94 H Pulse Oximetry 97 Oxygen Delivery Oxygen Flow Rate Fraction of Inspired Oxygen 07/15/25 18:00 07/15/25 18:00 07/15/25 19:00 Temperature 37.4 C 37.0 C Pulse Rate 100 100 127 H Respiratory Rate 25 H 18 Blood Pressure 118/60 124/74 Pulse Oximetry 97 98 Oxygen Delivery Oxygen Flow Rate Fraction of Inspired Oxygen 07/15/25 20:00 07/15/25 20:00 07/15/25 20:00 Temperature Pulse Rate 80 80 108 H Respiratory Rate 27 H Blood Pressure 113/76 Pulse Oximetry 98 Oxygen Delivery Nasal Cannula Oxygen Flow Rate 3 Fraction of Inspired Oxygen 07/15/25 20:00 07/15/25 20:18 07/15/25 21:00 Temperature 37.4 C 37.4 C Pulse Rate 80 103 H 76 Respiratory Rate 27 H 19 Blood Pressure 113/76 107/68 Pulse Oximetry 98 94 Oxygen Delivery Oxygen Flow Rate Fraction of Inspired Oxygen 07/15/25 21:22 07/15/25 22:00 07/15/25 22:00 Temperature Pulse Rate 82 83 83 Respiratory Rate 20 Blood Pressure 118/63 Pulse Oximetry 93 Oxygen Delivery Nasal Cannula Oxygen Flow Rate 3 Fraction of Inspired Oxygen 32 07/15/25 22:00 07/15/25 23:00 07/16/25 00:00 Temperature 37.3 C 37.3 C 37.2 C Pulse Rate 83 68 69 Respiratory Rate 22 H 13 19 Blood Pressure 118/63 126/87 103/57 L Pulse Oximetry 97 97 100 Oxygen Delivery Oxygen Flow Rate Fraction of Inspired Oxygen 07/16/25 00:00 07/16/25 00:00 07/16/25 00:00 Temperature Pulse Rate 99 69 69 Respiratory Rate 19 Blood Pressure 103/57 L Pulse Oximetry 100 Oxygen Delivery Nasal Cannula Oxygen Flow Rate 3 Fraction of Inspired Oxygen 07/16/25 01:00 07/16/25 02:00 07/16/25 02:00 Temperature 37.1 C Pulse Rate 61 76 76 Respiratory Rate 15 Blood Pressure 116/61 123/58 L Pulse Oximetry 99 Oxygen Delivery Oxygen Flow Rate Fraction of Inspired Oxygen 07/16/25 02:00 07/16/25 03:00 07/16/25 04:00 Temperature 36.9 C 36.7 C 37.0 C Pulse Rate 61 79 74 Respiratory Rate 17 19 22 H Blood Pressure 123/58 L 154/93 H 106/52 L Pulse Oximetry 100 100 100 Oxygen Delivery Oxygen Flow Rate Fraction of Inspired Oxygen 07/16/25 04:00 07/16/25 04:00 07/16/25 04:00 Temperature Pulse Rate 61 61 70 Respiratory Rate 19 Blood Pressure 106/52 L Pulse Oximetry 100 Oxygen Delivery Nasal Cannula Oxygen Flow Rate 3 Fraction of Inspired Oxygen 07/16/25 05:00 07/16/25 06:00 07/16/25 06:00 Temperature 37.1 C 37.2 C Pulse Rate 92 83 83 Respiratory Rate 23 H 17 Blood Pressure 95/74 L 134/51 L 134/51 L Pulse Oximetry 98 97 Oxygen Delivery Oxygen Flow Rate Fraction of Inspired Oxygen 07/16/25 06:00 07/16/25 07:00 07/16/25 08:00 Temperature 37.1 C 37.2 C Pulse Rate 89 87 87 Respiratory Rate 23 H 23 H Blood Pressure 145/65 H 126/67 Pulse Oximetry 97 95 Oxygen Delivery Oxygen Flow Rate Fraction of Inspired Oxygen 07/16/25 08:00 07/16/25 08:00 07/16/25 08:26 Temperature Pulse Rate 92 71 Respiratory Rate Blood Pressure Pulse Oximetry 100 Oxygen Delivery Nasal Cannula Oxygen Flow Rate 3 Fraction of Inspired Oxygen 07/16/25 09:00 07/16/25 10:00 07/16/25 11:00 Temperature 37.3 C 37.6 C H 37.7 C H Pulse Rate 97 81 78 Respiratory Rate 25 H 22 H 18 Blood Pressure 114/52 L 124/67 116/56 L Pulse Oximetry 100 100 99 Oxygen Delivery Oxygen Flow Rate Fraction of Inspired Oxygen 07/16/25 12:00 07/16/25 12:00 07/16/25 13:00 Temperature 37.7 C H 37.7 C H Pulse Rate 78 88 Respiratory Rate 19 20 Blood Pressure 124/79 125/57 L Pulse Oximetry 97 97 100 Oxygen Delivery Nasal Cannula Oxygen Flow Rate 3 Fraction of Inspired Oxygen Intake/Output Intake/Output: Intake & Output 07/13/25 07/14/25 07/15/25 07/16/25 23:59 23:59 23:59 23:59 Intake Total 390 871 7784.4 875 Output Total 6282 0050 2125 550 Balance -1150 -2450 -671.6 325 Meds/Results Medications: Active Medications Generic Name Dose Route Start Last Admin Trade Name Freq PRN Reason Stop Dose Admin Acetaminophen 650 mg 07/07/25 08:10 07/15/25 13:04 Acetaminophen 325 Mg Tablet PO 650 mg Q4H PRN Administration Mild Pain (1-3) or Fever Acetaminophen 650 mg 07/10/25 17:36 07/10/25 21:18 Acetaminophen 650 Mg Suppository RECTAL 650 mg Q6H PRN Administration Fever Dextrose 12.5 gm 07/10/25 15:08 Dextrose 50% 25 Gm/50 Ml Syringe IV PUSH PRN PRN Hypoglycemia Protocol Enoxaparin Sodium 70 mg 07/15/25 09:00 07/16/25 08:15 Enoxaparin 80 Mg/0.8 Ml Syringe SUB-Q 70 mg Q12HR IVONE Administration Glucagon 1 mg 07/10/25 15:08 Glucagon For Inj 1 Mg Vial IM PRN PRN Hypoglycemia Protocol Glucose 15 gm 07/10/25 15:08 Glucose Oral Gel 15 Gm Of Glucse In 37.5 Gm Tube PO PRN PRN Hypoglycemia Protocol Dextrose 1,000 mls @ 100 mls/hr 07/10/25 15:08 Dextrose 5% 1,000 Ml IVPB PRN PRN Hypoglycemia Protocol Cefepime HCl 2 gm/ Sodium 50 mls @ 100 mls/hr 07/11/25 10:20 07/16/25 08:15 Chloride IVPB 100 mls/hr Q12HR IVONE Administration Insulin Aspart 3 - 6 units 07/10/25 17:00 07/16/25 12:25 Insulin Aspart (*Bkc) 100 Units/Ml SUB-Q 5 units Q4HR IVONE Administration Protocol Insulin Glargine 10 units 07/12/25 09:00 07/12/25 16:10 Insulin Glargine (*Bkc) 100 Units/Ml SUB-Q Not Given On Hold: 07/13/25 08:23 DAILY IVONE Ipratropium [place] 0.5 mg 07/14/25 08:25 Ipratropium Br 0.02% Inh Soln 0.5 Mg/2.5 Ml Vial INHALATION Q6HRT PRN Wheezing Levalbuterol HCl 0.63 mg 07/14/25 08:25 Levalbuterol Neb 1.25 Mg/3 Ml INHALATION Q6HRT PRN Wheezing Loperamide HCl 2 mg 07/07/25 14:57 Loperamide Hcl 2 Mg Capsule PO On Hold: 07/10/25 15:03 PRN PRN Diarrhea Methylprednisolone Sodium Succinate 10 mg 07/15/25 09:00 07/16/25 08:16 Methylprednisolone Sod Succ 40 Mg Vial IV PUSH 10 mg DAILY IVONE Administration Metoprolol Tartrate 5 mg 07/15/25 11:44 Metoprolol Tartrate Inj 5 Mg/5 Ml Vial IV PUSH Q3H PRN HR > 120 sustained Pantoprazole Sodium 40 mg 07/10/25 15:45 07/16/25 08:16 Pantoprazole Sodium Iv 40 Mg Vial IV PUSH 40 mg QAM IVONE Administration Phenol 1 spray 07/14/25 10:47 Phenol/Sod Pheno Simms Duncan (*Bkc) MUCOUS MEM PRN PRN Sore Throat Potassium Chloride 40 meq 07/16/25 07:35 07/16/25 12:25 Potassium Chloride 20 Meq Packet (For Liquid) FEED TUBE 07/16/25 13:36 40 meq Q6H IVONE Administration Pramipexole Dihydrochloride 0.5 mg 07/07/25 21:00 07/09/25 20:52 Pramipexole 0.5 Mg Tablet PO 0.5 mg HS IVONE Administration Pravastatin Sodium 10 mg 07/08/25 09:00 07/16/25 08:16 Pravastatin Sodium 10 Mg Tablet BY MOUTH 10 mg DAILY IVONE Administration Sodium Chloride 20 ml 07/10/25 20:33 Central Line Flush IV PUSH PRN PRN after blood draws Sodium Chloride 10 ml 07/13/25 14:00 07/16/25 06:47 Central Line Flush IV PUSH 10 ml Q8HR IVONE Administration Sodium Chloride 10 ml 07/13/25 08:09 Central Line Flush IV PUSH PRN PRN with TPN bag changes Sodium Chloride 20 ml 07/13/25 08:09 Central Line Flush IV PUSH PRN PRN after blood draws Sotalol HCl 80 mg 07/15/25 09:00 07/16/25 08:26 Sotalol Hcl 80 Mg Tablet FEED TUBE 80 mg Q12HR IVONE Administration Trimethobenzamide HCl 200 mg 07/07/25 14:56 07/12/25 04:26 Trimethobenzamide Hcl 200 Mg/2 Ml Vial IM 200 mg Q6H PRN Administration Nausea And Vomiting Radiology Results: ITS Impressions Cervical Spine CT 07/07/25 06:30 IMPRESSION: HEAD: 1. No acute intracranial findings. 2. Bilateral mastoiditis. C-SPINE: 1. No acute fracture. 2. Ill-defined fluid and postoperative changes posterior to upper cervical spine. 3. Extensive bilateral upper lung airspace disease, and left pleural effusion. Chest/Abdomen/Pelvis CT 07/07/25 07:13 IMPRESSION: 1. Diffuse lung disease, likely a combination of pneumonia in the upper lobes and left lower lobe and mild pulmonary edema. 2. Small pleural effusions. 3. Colitis involving the rectosigmoid. Head CT 07/10/25 15:36 Impression: 1.No acute intracranial abnormality. Abdomen/Pelvis CT 07/13/25 13:46 IMPRESSION: 1. Increased size of pleural effusions which are small to moderate compared to small on the previous exam. Bibasilar atelectatic changes with possible developing consolidation and/or vascular congestion. 2. Fluid and gas dilated rectosigmoid region with findings suggestive of mild colitis and diarrhea process. 3. Extraperitoneal findings of uncertain significance possibly associated with the air foci associated with injections. Correlate clinically to exclude active inflammatory/infectious process in the extra peritoneal soft tissues. NG Tube Placement 07/13/25 14:43 IMPRESSION: 1. Fluoroscopy utilized during placement of a nasogastric tube with distal tip in proximal side port in the body the stomach. Chest X-Ray 07/16/25 11:13 IMPRESSION: 1. No significant change. 2. Left pleural effusion with associated basilar atelectasis persist. 3. Right pleural effusion poorly seen if it persists. Abdomen X-Ray 07/16/25 11:17 IMPRESSION: 1. Persistent but decreased colonic gaseous distention, likely due to diarrheal process and/or colitis. Labs Labs: Laboratory Results - last 24 hr 07/15/25 07/15/25 07/15/25 17:09 20:08 23:35 WBC RBC Hgb Hct MCV MCH MCHC RDW Plt Count MPV Sodium Potassium Chloride Carbon Dioxide Anion Gap BUN Creatinine Estim Creat Clear Calc Estimated GFR Glucose POC Capillary Glucose 208 H 280 H 170 H Calcium Magnesium Total Bilirubin AST ALT Alkaline Phosphatase Total Protein Albumin 07/16/25 07/16/25 07/16/25 05:24 05:34 07:55 WBC 10.7 H RBC 3.36 L Hgb 9.4 L Hct 31.8 L MCV 94.6 MCH 28.0 MCHC 29.6 L RDW 19.4 H Plt Count 261 MPV 10.6 H Sodium 135 L Potassium 3.0 L Chloride 101 Carbon Dioxide 32 H Anion Gap 2 L BUN 27 H Creatinine 0.99 Estim Creat Clear Calc 41 Estimated GFR 55 L Glucose 126 H POC Capillary Glucose 133 H Calcium 8.6 Magnesium 1.8 Total Bilirubin 0.6 AST 22 ALT 15 Alkaline Phosphatase 143 H Total Protein 5.3 L Albumin 2.9 L 07/16/25 11:40 WBC RBC Hgb Hct MCV MCH MCHC RDW Plt Count MPV Sodium Potassium Chloride Carbon Dioxide Anion Gap BUN Creatinine Estim Creat Clear Calc Estimated GFR Glucose POC Capillary Glucose 327 H Calcium Magnesium Total Bilirubin AST ALT Alkaline Phosphatase Total Protein Albumin
--- NOTE | 2025-07-16 15:30 | PC.NURSE ---
Transfer received per hospital bed from ICU 7. Belongings verified. Call light within reach. Bed alarm active.
--- NOTE | 2025-07-16 16:34 | PC.NURSE ---
This patient, Laura Clifford, was transferred to [facility] on 07/16/25 at 1520. Personal belongings sent with patient. Report given to MARILYN Bhandari. Appropriate documentation sent with patient. Patient's family at bedside. Patient voiced no complaints or concerns at this time. Bed in low and locked position. Call light in reach. Isabela Childs RN.
[2025-07-16 16:39] LABS: Toxigenic C. Diff NEGATIVE (NEGATIVE)
[2025-07-16] MEDS: SOTALOL HCL 80 MG TABLET PO (22:15)
[2025-07-16] MEDS: PRAMIPEXOLE 0.5 MG TABLET PO (22:15)
[2025-07-17 05:19] LABS: Hematocrit 30.7 % (37.0-47.0); Hemoglobin 8.9 g/dL (12.0-15.0); Mean Corpuscular HGB Conc 29.0 g/dl (32-36); Mean Corpuscular Hemoglobin 27.5 pg (26-34); Mean Corpuscular Volume 94.8 fl (80-100); Platelet Count Result 206 k/mm3 (150-375); Red Blood Count 3.24 M/mm3 (4.2-5.4); White Blood Count 10.5 K/mm3 (4.5-10.0)
[2025-07-17 05:49] LABS: Alanine Aminotransferase 18 U/L (6-35); Albumin Level 2.7 g/dL (3.5-5.1); Alkaline Phosphatase 143 U/L (38-126); Anion Gap -1 mmol/L (4-12); Aspartate Amino Transferase 30 U/L (14-36); Bilirubin,Total 0.4 mg/dL (0.2-1.3); Blood Urea Nitrogen 22 mg/dL (7-17); Calcium 8.6 mg/dL (8.4-10.2); Carbon Dioxide 33 mmol/L (22-30); Chloride 100 mmol/L (98-107); Estimated CRCL calculation 46 ml/min; Estimated Glomerular Filt Rate > 60; Glucose 106 mg/dL (65-110); Magnesium 1.7 mg/dL (1.6-2.3); Potassium 3.2 mmol/L (3.4-5.0); Sodium 132 mmol/L (137-145); Total Protein 4.9 g/dL (6.3-8.2)
[2025-07-17 06:00] VITALS: BP 106/73; PULSE 90; RESP 16; TEMP 36.2; O2SAT 100
[2025-07-17] MEDS: CENTRAL LINE FLUSH 10 ML IV PUSH ×3 (06:22→22:02)
[2025-07-17 08:15] LABS: CRP < 0.5 mg/dL (<1.0); NT Pro B Type Natriuretic Pept 3220 pg/mL (19.9-100)
[2025-07-17] MEDS: MAGNESIUM SULF 2 GM/WATER 50ML 2 GM/50 ML BAG IVPB (08:36)
[2025-07-17 08:38] VITALS: PULSE 89
[2025-07-17] MEDS: SOTALOL HCL 80 MG TABLET PO ×2 (08:38→22:00)
[2025-07-17] MEDS: POTASSIUM CHLORIDE 20 MEQ ER TABLET 40 MEQ PO ×2 (08:39→11:39)
[2025-07-17] MEDS: PRAVASTATIN SODIUM 10 MG TABLET BY MOUTH (08:39)
[2025-07-17] MEDS: PANTOPRAZOLE SODIUM IV 40 MG VIAL IV PUSH (08:41)
[2025-07-17] MEDS: ENOXAPARIN 80 MG/0.8 ML SYRINGE 70 MG SUB-Q (08:41)
[2025-07-17 08:42] LABS: Procalcitonin 0.1 ng/mL
[2025-07-17] MEDS: INSULIN GLARGINE (*BKC) 100 UNITS/ML 10 UNITS SUB-Q (09:07)
--- NOTE | 2025-07-17 11:08 | P.PNIM_ITS ---
Progress Note: A&P Assessment and Plan (1) Sarcoid: Code(s): D86.9 - Sarcoidosis, unspecified Status: Acute (2) Ileus: Code(s): K56.7 - Ileus, unspecified Status: Acute Plan Debility -PT OT consulted -patient may benefit from inpatient rehab -discussed with case management Ileus, resolved -KUB concerning for worsening dilated loops of bowel -appreciate GI consult: Advanced diet as tolerated -appreciate general surgical consultation: Advanced diet as tolerated -abdominal CT scan with contrast 07/13: Including dilated rectosigmoid concerning for colitis, no SBO -NG tube placed by IR 07/13, now removed -advancing to soft foods 07/17 Multifocal atrial tachycardia, improved Paroxysmal atrial fibrillation, improved -patient has paroxysmal atrial fibrillation on Xarelto and rate control with sotalol -currently patient appears to have atrial tachycardia heart rate fluctuating from 90 to 140s -appreciate Cardiology consultation Dr. Sorensen: Continue sotalol, outpatient referral for EP ablation -history of paroxysmal atrial fibrillation -goal K>4, K 3.2 giving 40mEq x2 -goal Mg>2, mg 1.7 giving 2g mag sulfate Acute hypoxic respiratory failure Community-acquired pneumonia Sarcoidosis -patient on heated high-flow oxygen changed to nasal cannula 3L, not on bipap -appreciate pulmonology management -antibiotics: Completed empirically 5 days of antibiotics vancomycin/cefepime, doxycycline -monitor fever curve, Tmax 37.7 yesterday. procalcitonin negative 07/17 -MRSA nares positive -steroids: solu-medrol to home dose prednisone 10mg daily Chronic conditions -type 2 diabetes: Monitor glucose, resuming glargine 10 units daily, sliding scale insulin -polymyalgia rheumatica -pulmonary hypertension, HFpEF: resume home lasix 40mg PO daily, BNP 3220, will monitor blood pressure closely -recent c-spine surgery. Posterior cervical decompression and fusion C2-6 at [facility] on 06/26/25 keep c-collar on for [address] Lowry. C-collar in place. -hyperlipidemia: Pravastatin -RLS: Mirapex, Robaxin -essential hypertension: holding Losartan for low BP, on sotalol -supplements: Vitamin D3 Diet: Advanced to soft food DVT prophylaxis: SCDs, resume home xarelto GI prophylaxis: Protonix Code status: Full code Disposition: plan for discharge to rehab Time Spent With Patient Time: 35 minutes Subjective Date/time seen: 07/17/25 11:08 Interval history: Patient seen and examined. She is doing well with no new complaints. Patient's BNP is 3200, resuming home p.o. Lasix 40 mg daily. Will continue to monitor closely blood pressure is low at 106/73. Resuming home Xarelto, discontinue Lovenox. Resuming home PO meds. Will monitor fever curve. Patient has already completed adequate antibiotics. 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 I have advancing to soft diet. We are looking at discharge planning soon to SNF. Patient continues to complain about C-collar however the recommendations are for to continue wearing it. Review of Systems Review of Systems: 10 point ROS complete, negative other th an what is specified in HPI. Exam Narrative: - GENERAL: Pleasant chronically ill-lior earing elderly woman in no acute distress - EYES: EOMI. Anicteric. - HENT: Moist mucous membranes. C-colla r in place - LUNGS: Clear to auscultation on 2L O2 - CARDIOVASCULAR: Regular rate and rhyt hm - ABDOMEN: Soft, nondistended, nontender , bowel sounds present - EXTREMITIES: No edema. Peripheral puls es 2+. eschar wound on left forearm - NEUROLOGIC: No focal neurological defi cits. CN II-XII grossly intact. - PSYCHIATRIC: Awake, Alert and oriented x 3. Appropriate mood and affect. Objective Data Vital Signs Vital Signs: Vital Signs - 24 hr 07/16/25 12:00 07/16/25 12:00 07/16/25 13:00 Temperature 37.7 C H 37.7 C H Pulse Rate 78 88 Respiratory Rate 19 20 Blood Pressure 124/79 125/57 L Pulse Oximetry 97 97 100 Oxygen Delivery Nasal Cannula Oxygen Flow Rate 3 07/16/25 16:00 07/16/25 20:00 07/16/25 20:00 Temperature 36.9 C 36.6 C Pulse Rate 67 96 Respiratory Rate 18 16 Blood Pressure 142/72 H 140/63 Pulse Oximetry 94 98 98 Oxygen Delivery Nasal Cannula Oxygen Flow Rate 3 07/17/25 06:00 07/17/25 08:38 07/17/25 10:03 Temperature 36.2 C L Pulse Rate 90 89 Respiratory Rate 16 Blood Pressure 106/73 Pulse Oximetry 100 Oxygen Delivery Nasal Cannula Oxygen Flow Rate 2 07/17/25 10:23 Temperature Pulse Rate Respiratory Rate Blood Pressure Pulse Oximetry Oxygen Delivery Nasal Cannula Oxygen Flow Rate 2 Intake/Output Intake/Output: Intake & Output 07/14/25 07/15/25 07/16/25 07/17/25 23:59 23:59 23:59 23:59 Intake Total 500 1453.4 1325 270 Output Total 2950 2125 951 551 Balance -2450 -671.6 374 -281 Meds/Results Medications: Active Medications Generic Name Dose Route Start Last Admin Trade Name Freq PRN Reason Stop Dose Admin Acetaminophen 650 mg 07/07/25 08:10 07/15/25 13:04 Acetaminophen 325 Mg Tablet PO 650 mg Q4H PRN Administration Mild Pain (1-3) or Fever Acetaminophen 650 mg 07/10/25 17:36 07/10/25 21:18 Acetaminophen 650 Mg Suppository RECTAL 650 mg Q6H PRN Administration Fever Dextrose 12.5 gm 07/10/25 15:08 Dextrose 50% 25 Gm/50 Ml Syringe IV PUSH PRN PRN Hypoglycemia Protocol Enoxaparin Sodium 70 mg 07/15/25 09:00 07/17/25 08:41 Enoxaparin 80 Mg/0.8 Ml Syringe SUB-Q 70 mg Q12HR IVONE Administration Glucagon 1 mg 07/10/25 15:08 Glucagon For Inj 1 Mg Vial IM PRN PRN Hypoglycemia Protocol Glucose 15 gm 07/10/25 15:08 Glucose Oral Gel 15 Gm Of Glucse In 37.5 Gm Tube PO PRN PRN Hypoglycemia Protocol Dextrose 1,000 mls @ 100 mls/hr 07/10/25 15:08 Dextrose 5% 1,000 Ml IVPB PRN PRN Hypoglycemia Protocol Insulin Aspart 3 - 6 units 07/10/25 17:00 07/17/25 09:04 Insulin Aspart (*Bkc) 100 Units/Ml SUB-Q Not Given Q4HR IVONE Protocol Insulin Glargine 10 units 07/12/25 09:00 07/17/25 09:07 Insulin Glargine (*Bkc) 100 Units/Ml SUB-Q 10 units DAILY IVONE Administration Ipratropium [place] 0.5 mg 07/14/25 08:25 Ipratropium Br 0.02% Inh Soln 0.5 Mg/2.5 Ml Vial INHALATION Q6HRT PRN Wheezing Levalbuterol HCl 0.63 mg 07/14/25 08:25 Levalbuterol Neb 1.25 Mg/3 Ml INHALATION Q6HRT PRN Wheezing Loperamide HCl 2 mg 07/07/25 14:57 Loperamide Hcl 2 Mg Capsule PO PRN PRN Diarrhea Metoprolol Tartrate 5 mg 07/15/25 11:44 Metoprolol Tartrate Inj 5 Mg/5 Ml Vial IV PUSH Q3H PRN HR > 120 sustained Pantoprazole Sodium 40 mg 07/10/25 15:45 07/17/25 08:41 Pantoprazole Sodium Iv 40 Mg Vial IV PUSH 40 mg QAM IVONE Administration Potassium Chloride 40 meq 07/17/25 08:00 07/17/25 08:39 Potassium Chloride 20 Meq Er Tablet PO 07/17/25 12:01 40 meq Q4H IVONE Administration Pramipexole Dihydrochloride 0.5 mg 07/07/25 21:00 07/16/25 22:15 Pramipexole 0.5 Mg Tablet PO 0.5 mg HS IVONE Administration Pravastatin Sodium 10 mg 07/08/25 09:00 07/17/25 08:39 Pravastatin Sodium 10 Mg Tablet BY MOUTH 10 mg DAILY IVONE Administration Prednisone 10 mg 07/18/25 08:00 Prednisone 10 Mg Tablet PO DAILY@0800 IVONE Sodium Chloride 20 ml 07/10/25 20:33 Central Line Flush IV PUSH PRN PRN after blood draws Sodium Chloride 10 ml 07/13/25 14:00 07/17/25 06:22 Central Line Flush IV PUSH 10 ml Q8HR IVONE Administration Sodium Chloride 10 ml 07/13/25 08:09 Central Line Flush IV PUSH PRN PRN with TPN bag changes Sodium Chloride 20 ml 07/13/25 08:09 Central Line Flush IV PUSH PRN PRN after blood draws Sotalol HCl 80 mg 07/16/25 21:00 07/17/25 08:38 Sotalol Hcl 80 Mg Tablet PO 80 mg Q12HR IVONE Administration Trimethobenzamide HCl 200 mg 07/07/25 14:56 07/12/25 04:26 Trimethobenzamide Hcl 200 Mg/2 Ml Vial IM 200 mg Q6H PRN Administration Nausea And Vomiting Radiology Results: ITS Impressions Cervical Spine CT 07/07/25 06:30 IMPRESSION: HEAD: 1. No acute intracranial findings. 2. Bilateral mastoiditis. C-SPINE: 1. No acute fracture. 2. Ill-defined fluid and postoperative changes posterior to upper cervical spine. 3. Extensive bilateral upper lung airspace disease, and left pleural effusion. Chest/Abdomen/Pelvis CT 07/07/25 07:13 IMPRESSION: 1. Diffuse lung disease, likely a combination of pneumonia in the upper lobes and left lower lobe and mild pulmonary edema. 2. Small pleural effusions. 3. Colitis involving the rectosigmoid. Head CT 07/10/25 15:36 Impression: 1.No acute intracranial abnormality. Abdomen/Pelvis CT 07/13/25 13:46 IMPRESSION: 1. Increased size of pleural effusions which are small to moderate compared to small on the previous exam. Bibasilar atelectatic changes with possible developing consolidation and/or vascular congestion. 2. Fluid and gas dilated rectosigmoid region with findings suggestive of mild colitis and diarrhea process. 3. Extraperitoneal findings of uncertain significance possibly associated with the air foci associated with injections. Correlate clinically to exclude active inflammatory/infectious process in the extra peritoneal soft tissues. NG Tube Placement 07/13/25 14:43 IMPRESSION: 1. Fluoroscopy utilized during placement of a nasogastric tube with distal tip in proximal side port in the body the stomach. Chest X-Ray 07/17/25 08:13 Impression: CHF. Superimposed pneumonia is suspected. The findings appear slightly progressed compared to the previous study. Abdomen X-Ray 07/17/25 08:30 IMPRESSION: Unchanged exam compared to yesterday. Labs Labs: Laboratory Results - last 24 hr 07/16/25 07/16/25 07/16/25 11:40 15:05 16:14 WBC RBC Hgb Hct MCV MCH MCHC RDW Plt Count MPV Sodium Potassium Chloride Carbon Dioxide Anion Gap BUN Creatinine Estim Creat Clear Calc Estimated GFR Glucose POC Capillary Glucose 327 H 315 H Calcium Magnesium Total Bilirubin AST ALT Alkaline Phosphatase C-Reactive Protein NT-Pro-B Natriuret Pep Total Protein Albumin Procalcitonin C. difficile (PCR) Negative 07/16/25 07/17/25 07/17/25 21:34 01:29 05:00 WBC RBC Hgb Hct MCV MCH MCHC RDW Plt Count MPV Sodium Potassium Chloride Carbon Dioxide Anion Gap BUN Creatinine Estim Creat Clear Calc Estimated GFR Glucose POC Capillary Glucose 302 H 163 H 127 H Calcium Magnesium Total Bilirubin AST ALT Alkaline Phosphatase C-Reactive Protein NT-Pro-B Natriuret Pep Total Protein Albumin Procalcitonin C. difficile (PCR) 07/17/25 07/17/25 05:10 07:34 WBC 10.5 H RBC 3.24 L Hgb 8.9 L Hct 30.7 L MCV 94.8 MCH 27.5 MCHC 29.0 L RDW 19.0 H Plt Count 206 MPV 11.1 H Sodium 132 L Potassium 3.2 L Chloride 100 Carbon Dioxide 33 H Anion Gap -1 L BUN 22 H Creatinine 0.87 Estim Creat Clear Calc 46 Estimated GFR > 60 Glucose 106 POC Capillary Glucose 117 H Calcium 8.6 Magnesium 1.7 Total Bilirubin 0.4 AST 30 ALT 18 Alkaline Phosphatase 143 H C-Reactive Protein < 0.5 NT-Pro-B Natriuret Pep 3220 H Total Protein 4.9 L Albumin 2.7 L Procalcitonin 0.1 C. difficile (PCR)
[2025-07-17] MEDS: FUROSEMIDE 40 MG TABLET PO (11:39)
[2025-07-17] MEDS: INSULIN ASPART (*BKC) 100 UNITS/ML SUB-Q ×3 (11:46→22:01)
[2025-07-17 12:04] LABS: Alveolar/Arterial O2 Gradient 38.3 mmHg; Carboxyhemoglobin 1.7 % THb (0-2.0); Fractional Inspired Oxygen 21 %; HCO3 ABG 28.8 mEq/l (22.0-26.0); Methemoglobin ABG 0.3 %THb (0-1.5); Oxygen Content ABG 12.2 %vol (16.0-22.0); PCO2 ABG 48.3 mmHg (35.0-45.0); PO2 ABG 53.6 mmHg (80.0-100.0); PO2 FiO2 Ratio Arterial Blood 2.55 %; Reduced Hemoglobin 12.6 %THb (0-5.0)
--- NOTE | 2025-07-17 12:13 | P.PNPL_ITS ---
Progress Note: A&P Assessment and Plan (1) Respiratory failure with hypoxia and hypercapnia: Code(s): J96.91 - Respiratory failure, unspecified with hypoxia; J96.92 - Respiratory failure, unspecified with hypercapnia Status: Acute Assessment and Plan: When patient was last seen in the Pulmonary Clinic on 01/12/2023 and she was on no oxygen at rest and 4 L with activity. ABG on 11/20/2022 on room air was 7.42/41/73. The patient's tells me she has been on 2 L oxygen 24-7 for the last 2-3 years with home saturations 93-95%. I spoke to the . Patient was recently admitted to [facility] for 26 days. She was discharged to [facility] on 07/04/2025. During this hospitalization she had the above-mentioned cervical neck operation. In addition she had an abnormal CT scan with upper lobe infiltrates and high calcium levels. Patient was seen by the Pulmonary team and she underwent biopsy. After the biopsy the Pulmonary team told the that she had sarcoid and that she required prednisone 10 mg a day to control her calcium. The says that the patient never had respiratory distress but did have high carbon dioxide and she was transferred to the ICU for few days and required BiPAP mask treatment. After a few days she was transferred out of the ICU and did not wear the BiPAP any longer. The patient was discharged to [facility] on 2 L nasal cannula and the family was not told that she needed a BiPAP machine. The patient was supposed to be on prednisone 10 mg a day. 07/07/2025 patient presents after a fall and required 2 L nasal cannula at rest with saturations 91-94%. She has been diagnosed with a pansensitive E coli UTI and is being treated with ceftriaxone and azithromycin for UTI and possible pneumonia. 07/10/2025: Patient had altered mental status and was more somnolent and an ABG on 2 L nasal cannula 7.32/77.7/105. White blood cell count was 8.9, creatinine was 0.63. BNP was 3860, CRP was 2.6, procalcitonin was 0.1. Patient was empirically started on rate of 14, BiPAP 15/5 and then had hypoxia and one hour ago her settings were changed to a rate of 14, 18/8 and 70% FiO2. When I enter the room the patient was on BiPAP rate of 14, breathing 21 times a minute, pressures 18/8 with tidal volumes 375-425, minute ventilation 7.1, inspiratory time 0.8, rise of 5 and 70% FiO2 with 100% saturations. Patient w ould arouse to loud verbal commands, deep pain in all 4 extremities she would withdraw but she would not say her name. She would mumble but not follow any verbal commands. Unclear etiology of patient's altered mental status. Patient does have acute on chronic hypercarbic and hypoxemic respiratory failure although her blood gas earlier today shows acute on chronic hypercarbic respiratory failure with near complete compensation with a pH of 7.32/77.7/105. patient does have a UTI. Patient may have a pneumonia. Patient has a history of atrial fibrillation and anticoagulation has been held since 07/07/2025: Plan: Patient currently on ceftriaxone and azithromycin since 07/07/2025, day 4 both. I will repeat a blood gas on BiPAP to reassess patient's acid-base status. I will send a repeat COVID, influenza, RSV RT PCR assay, respiratory pathogen panel, urine for Legionella, urine for pneumococcal and serum mycoplasma IgM. Blood cultures are pending. I have ordered an echocardiogram. Repeat ABG on BIPAP 7.32/78.7/152. I went to bedside and placed patient on AVAPS rate 20, TV 500, epap 5, min I PAP 6, max IPAP 25, I time 0.65, rise of 3 and 30% FIO2. I discussed with inte nsivist and plan to move to ICU. Patient transferred to ICU, placed on noninvasive ventilation with the AVAPS mode, required norepinephrine. patient slowly improved over the next 10 days with broad-spectrum antibiotics, steroids, NG suction for ileus. Last use of noninvasive ventilation 07/13/2025. 07/17/2025: The patient is awake and alert. She tells me she has no rest shortness of breath. She has not been out of bed. With activity in bed she has no dyspnea on exertion. She denies cough, phlegm or hemoptysis. She has diarrhea 3 to 4 times a day and is tolerating soft diet. She Had a fever yesterday at 1:00 p.m.. When I enter the room she was on 2 L nasal cannula saturations 97%. I decreased her room air and after 11 minutes her saturations were 90-91%. White blood cell count 10.5, creatinine 0.87. BNP is improved from 3860 on 07/10/2025 to 3220. CRP has improved from 1.6 on 07/11/2025 does less than 0.5 today. Procalcitonin remains 0.1 on 07/14/2025 to 0.1 today. Her weight is 73.4 kg. Cumulative she is -5.9 L since admission. ABG on room air was 7.39/48/54. Plan: The patient's tells me she has been on 2 L oxygen 24-7 for the last 2-3 years with home saturations 93-95%. 07/17/2025: The patient is awake and alert. She tells me she has no rest shortness of breath. She has not been out of bed. With activity in bed she has no dyspnea on exertion. She denies cough, phlegm or hemoptysis. She has diarrhea 3 to 4 times a day and is tolerating soft diet. She Had a fever yesterday at 1:00 p.m.. When I enter the room she was on 2 L nasal cannula saturations 97%. I decreased her room air and after 11 minutes her saturations were 90-91%. White blood cell count 10.5, creatinine 0.87. BNP is improved from 3860 on 07/10/2025 to 3220. CRP has improved from 1.6 on 07/11/2025 does less than 0.5 today. Procalcitonin remains 0.1 on 07/14/2025 to 0.1 today. Her weight is 73.4 kg. Cumulative she is -5.9 L since admission. ABG on room air was 7.39/48/54. Plan: According to the patient is chronically been on 2 L 24-7 for the last 2-3 years. Currently she is down to room air with saturation 90 to 91%. She will likely require more oxygen with activity. ABG demonstrates respiratory acidosis and metabolic alkalosis with a pCO2 of 48. She would not qualify for home noninvasive ventilation. Goal saturation 90-94% with rest, and activity. Per the patient's the Plan for discharge to a [facility] or home. In case she goes home, I will perform overnight oximetry tonight on 2 L to assess for nocturnal hypoxemia.. Discussed with Dr. Serna, will follow with you. (2) Pulmonary hypertension: Code(s): I27.20 - Pulmonary hypertension, unspecified Status: Acute Assessment and Plan: 11/21/2022: Echocardiogram with RVSP 59. Etiology of pulmonary hypertension include sleep-related breathing disorder, sarcoidosis, coronary artery disease with mitral valve repair since 2013. 07/10/2025: Patient presented with fall. Plan: I will repeat echocardiogram to reassess LV function, RV function, pulmonary pressures and valves. 07/11/25: echocardiogram with LVEF 65-70, abnormal diastolic function, reduced RV function, mildly enlarged left atrium, moderate aortic valve sclerosis, trace mitral regurg, moderate tricuspid regurg with PASP of 60. (3) Sarcoid: Code(s): D86.9 - Sarcoidosis, unspecified Status: Acute Assessment and Plan: Regarding her sarcoid: CT scan 12/21/2024 with increased upper lobe nodular infiltrates and reticulations compared to 11/20/2024. Unchanged lower lobe mosaic attenuation. 11/20/22 to 11/24/22 she was hospitalized for pneumonia and hypoxemic respiratory failure.? CT angiogram 11/20/2022 demonstrated no pulmonary embolism, diffuse mosaic attenuation in all lung ruvalcaba which was present on CT angiogram from 08/26/2022, CT abdomen on 07/09/2022, CTA on 06/26/2019, 12/21/2017 and mosiac attenuation had increased from 11/30/2013. Reports of high resolution CT scan and 04/18/2010 demonstrated improved infiltrates and mosaic attenuation. 07/10/25: I spoke to the . Patient was recently admitted to [facility] for 26 days (about 06/07/25 through 07/04/25). She was discharged to [facility] on 07/04/2025. During this hospitalization she had the above-mentioned cervical neck operation. In addition she had an abnormal CT scan with upper lobe infiltrates and high calcium levels. Patient was seen by the Pulmonary team and she underwent biopsy. After the biopsy the Pulmonary team told the that she had sarcoid and that she required prednisone 10 mg a day to control her calcium. The says that the patient never had respiratory distress but did have high carbon dioxide and she was transferred to the ICU for few days and required BiPAP mask treatment. After a few days she was transferred out of the ICU and did not wear the BiPAP any longer. The patient was discharged to [facility] on 2 L nasal cannula and the family was not told that she needed a BiPAP machine. The patient was supposed to be on prednisone 10 mg a day. 01/07/2023: PFTs Impression: There is a combined obstructive and restrictive ventilatory abnormality. There are no guidelines to assign the severity of obstruction and restriction with a combined abnormality. In my opinion, given the moderately concave expiratory flow tracing and normal FEV1: FVC ratio and moderate restrictive abnormality I would state there is a mild obstructive abnormality and a moderate restrictive abnormality resulting in a severely decreased FEV1. There is no significant improvement after inhaling a single dose of albuterol. The diffusing capacity unadjusted for hemoglobin and carboxyhemoglobin is moderately decreased and normalizes when adjusted for alveolar volume. On 06/12/2025 patient had a bronchoscopy at [facility]. This was performed for CT scan with numerous upper lobe nodules and concern for sarcoidosis. I have pathology reports from BAL and right upper lobe biopsies which demonstrated few noncaseating granulomas with scattered clusters of multinucleated giant cells special stains were negative for AFB and GMS. BAL was negative for malignancy.: Right upper lobe BAL: Side is pins and cell block: Negative for malignancy. 07/07/2025: CT scan of the chest showed bilateral right upper lobe greater than left upper lobe homogeneous reticulations with nodular infiltrates, small bilateral pleural effusions left greater than right, no change in her upper lobe or lower lobe mosaic attenuation from 12/21/2024. Etiology of interstitial lung disease is sarcoidosis and less likely hypersensitivity pneumonitis, chronic AFB-fungal infection, or rheumatoid lung. Plan: Patient family was told she needed prednisone 10 mg a day to control her calcium. Prednisone is not listed as a home medicine from [facility]. Calcium was 8.4 on admission to our hospital on 07/07/2025 and today is 8.9. Patient has an active urinary tract infection and at this time I will hold steroids. She is normotensive with normal glucose there is no evidence of adrenal insufficiency. 07/17/2025: Currently patient is on Solu-Medrol 10 mg IV q.day but is not tolerating PO. Calcium today is 8.6 with albumin of 2.7. Plan: I will place the patient on prednisone 10 mg a day starting on 07/18/2025. 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 Subjective Date/time seen: 07/17/25 12:13 Interval history: 07/10/2025: This is a new pulmonary consult for acute on chronic hypercarbic respiratory failure. 75-year-old with a history of chronic mosaic attenuation since 2013 and since with bilateral upper lobe septal thickening with nodular infiltrates since 12/21/24 With biopsy 06/12/2025 with noncaseating granulomas in scattered multinucleated giant cells, pulmonary hypertension, rheumatoid arthritis, polymyalgia rheumatica, CAD with CABG and mitral valve repair 02/27/2014, anemia, hyperlipidemia, hypertension, GERD, paroxysmal atrial fibrillation on rivaroxaban, PMR, TIA, dementia, cervical stenosis s/p posterior cervical decompression with fusion of C2-C6 at [facility] on 06/26/25. Regarding her chronic lung disease: CT scan 12/21/2024 with increased upper lobe nodular infiltrates and reticulations compared to 11/20/2024. Unchanged lower lobe mosaic attenuation. 11/20/22 to 11/24/22 she was hospitalized for pneumonia and hypoxemic respiratory failure.? CT angiogram 11/20/2022 demonstrated no pulmonary embolism, diffuse mosaic attenuation in all lung ruvalcaba which was present on CT angiogram from 08/26/2022, CT abdomen on 07/09/2022, CTA on 06/26/2019, 12/21/2017 and mosiac attenuation had increased from 11/30/2013. Reports of high resolution CT scan and 04/18/2010 demonstrated improved infiltrates and mosaic attenuation. On 06/12/2025 patient had a bronchoscopy at [facility]. This was performed for CT scan with numerous upper lobe nodules and concern for sarcoidosis. I have pathology reports from BAL and right upper lobe biopsies which demonstrated few noncaseating granulomas with scattered clusters of multinucleated giant cells special stains were negative for AFB and GMS. BAL was negative for malignancy.: Right upper lobe BAL: Side is pins and cell block: Negative for malignancy. I spoke to the . Patient was recently admitted to [facility] for 26 days. She was discharged to [facility] on 07/04/2025. During this hospitalization she had the above-mentioned cervical neck operation. In addition she had an abnormal CT scan with upper lobe infiltrates and high calcium levels. Patient was seen by the Pulmonary team and she underwent biopsy. After the biopsy the Pulmonary team told the that she had sarcoid and that she required prednisone 10 mg a day to control her calcium. The says that the patient never had respiratory distress but did have high carbon dioxide and she was transferred to the ICU for few days and required BiPAP mask treatment. After a few days she was transferred out of the ICU and did not wear the BiPAP any longer. The patient was discharged to [facility] on 2 L nasal cannula and the family was not told that she needed a BiPAP machine. The patient was supposed to be on prednisone 10 mg a day. On 06/26/2025 the patient had a posterior cervical decompression with fusion of C2-C6 at [facility]. 07/07/2025: Patient presented to the emergency room after a fall on blood thinners. Blood pressure 98/53, heart rate 86, respirations 26, room air saturations 100%. She was reported as somnolent. White blood cell count 8.5, creatinine 0.86, COVID influenza RSV RT PCR assay negative. Urinalysis demonstrated 3+ leukocyte esterase, positive nitrates, 4+ bacteria, greater than [address] scan of the chest showed bilateral right upper lobe greater than left upper lobe homogeneous reticulations with nodular infiltrates, small bilateral pleural effusions left greater than right, no change in her upper lobe or lower lobe mosaic attenuation from 12/21/2024. Patient was treated with ceftriaxone, azithromycin and IV Lasix. Her Xarelto was held. 07/08/2025: Patient was put on 2 L nasal cannula saturations 91-93%. 07/09/2025 patient's urine demonstrated pansensitive E coli. 07/10/2025: Patient had altered mental status and was more somnolent and an ABG on 2 L nasal cannula 7.32/77.7/105. White blood cell count was 8.9, creatinine was 0.63. BNP was 3860, CRP was 2.6, procalcitonin was 0.1. Patient was empirically started on Rate of 14, BiPAP 15/5 and then had hypoxia and her settings were changed to a rate of 14, 18/8 and 70% FiO2. When I enter the room the patient was on BiPAP rate of 14, breathing 20 1 times a minute, pressures 18/8 with tidal volumes 375-425, minute ventilation 7.1, inspiratory time 0.8, rise of 5 and 70% FiO2 with 100% saturations. Patient would arouse to loud verbal commands, deep pain in all 4 extremities she would withdraw but she would not say her name. She would mumble but not follow any verbal commands. Patient transferred to ICU, placed on noninvasive ventilation with the AVAPS mode, required norepinephrine. patient slowly improved over the next 10 days with broad-spectrum antibiotics, steroids, NG suction for ileus. Last use of noninvasive ventilation 07/13/2025. 07/17/2025: The patient is awake and alert. She tells me she has no rest shortness of breath. She has not been out of bed. With activity in bed she has no dyspnea on exertion. She denies cough, phlegm or hemoptysis. She has diarrhea 3 to 4 times a day and is tolerating soft diet. She Had a fever yesterday at 1:00 p.m.. When I enter the room she was on 2 L nasal cannula saturations 97%. I decreased her room air and after 11 minutes her saturations were 90-91%. White blood cell count 10.5, creatinine 0.87. BNP is improved from 3860 on 07/10/2025 to 3220. CRP has improved from 1.6 on 07/11/2025 does less than 0.5 today. Procalcitonin remains 0.1 on 07/14/2025 to 0.1 today. Her weight is 73.4 kg. Cumulative she is -5.9 L since admission. ABG on room air was 7.39/48/54. DATA: 07/11/25: Echo Summary 1. Definity contrast administered improved wall motion interpretation. 2. Left ventricular chamber dimension is normal. 3. Left ventricular systolic function is normal, estimated at 65-70. 4. There is moderate concentric increased left ventricular wall thickness. 5. The left ventricular diastolic function is abnormal. 6. E/e' 26 is significantly elevated. 7. Right ventricular systolic function is reduced based on an abnormal TAPSE 1.4 cm. 8. Left atrial chamber dimension is mildly enlarged. 9. There is moderate aortic valve sclerosis. 10. The mitral valve has a moderately calcified annulus. 11. There is trace mitral valve regurgitation. 12. There is moderate tricuspid valve regurgitation. 13. Severe pulmonary hypertension, estimated pulmonary arterial systolic pressure is 60 mmHg. 14. There is trace pulmonic regurgitation. Left Ventricle E/e' 26 is significantly elevated. Left ventricular chamber dimension is normal. Left ventricular systolic function is normal, estimated at 65-70. There is moderate concentric increased left ventricular wall thickness. The left ventricular diastolic function is abnormal. Definity contrast administered improved wall motion interpretation. Right Ventricle Right ventricular chamber dimension is not well visualized. Right ventricular systolic function is reduced based on an abnormal TAPSE 1.4 cm. Right Atria Right atrial chamber dimension is normal. 07/07/25: EXAMINATION: CT chest abdomen pelvis w con INDICATION: Fall. COMPARISON: Chest CT 12/21/2024 FINDINGS: CHEST CT: The lungs demonstrate smooth septal thickening. There are airspace opacities and nodules in the upper lobes. There are airspace opacities in left lower lobe. There is mild atelectasis in right lower lobe. A calcified right lung nodule is consistent with old granulomatous disease. There are small pleural effusions. The heart size is normal. There are changes of mitral valve replacement. There are coronary artery calcifications. No pericardial effusion. There is a total right shoulder arthroplasty. There are changes of anterior fusion procedure in cervical spine. There is moderate thoracic spondylosis. There is mild chronic anterior wedging of multiple vertebral bodies. ABDOMEN/PELVIS CT: The liver, gallbladder, spleen, pancreas, and adrenal glands are normal. There is cortical thinning of the kidneys. There is a 12 mm cyst in left kidney. There is wall thickening of the rectosigmoid. The appendix is normal. There are no dilated loops of bowel. There are no pathologically enlarged lymph nodes. There is no free intraperitoneal fluid. There is a benign bone island in the right femur. There is severe thoracic spondylosis. IMPRESSION: 1. Diffuse lung disease, likely a combination of pneumonia in the upper lobes and left lower lobe and mild pulmonary edema. 2. Small pleural effusions. 3. Colitis involving the rectosigmoid. 06/12/2025: Right upper lobe BAL: Side is pins and cell block: Negative for malignancy. Clinical Diagnosis and history. This is a 75-year-old woman with a history of COPD, coronary artery disease, chronic anemia who presented with neck pain and generalized weakness. CT chest numerous upper lobe nodules, concerning for sarcoidosis. 06/12/2025 lung, right upper lobe, biopsy: Few noncaseating granulomas and multinucleated giant cells. Microscopic description: Microscopic evaluation shows scant fragments of lung and bronchial tissue with few noncaseating granulomas and scattered clusters of multinucleated giant cells. Special stains for AFB and GMS are performed and are negative for acid-fast bacilli and fungal organisms, respectively. The staining controls are appropriately reactive. 12/21/24: EXAMINATION: CTA chest PE protocol INDICATION: Shortness of breath and hypoxia COMPARISON: 11/20/2022 and 08/26/2022 FINDINGS/OBSERVATIONS: PULMONARY ARTERIES: No filling defect is identified within the main or proximal pulmonary artery. The main pulmonary artery is not enlarged. THORACIC AORTA: No aneurysmal dilatation or dissection is present. The great vessels are intact LUNGS: Patchy groundglass opacification detected bilaterally, with a bilateral upper lobe distribution. MEDIASTINUM: No morphologically suspicious or pathologically enlarged lymph nodes are identified within the mediastinum or bilateral axilla. BONES OF THE CHEST: No acute fracture. No significant degenerative disease. No lytic or blastic lesions. Sternal wires are present. HEART: The heart is of normal size, without pericardial effusion. IMPRESSION: No pulmonary embolus. No thoracic aortic dissection. Patchy groundglass opacification with a bilateral upper lobe distribution. 01/07/2023: This is a pulmonary function test with pre and post-bronchodilator spirometry, plethysmography and diffusing capacity. The test was performed and results interpreted in accordance with the 2019 and 2005 ATS/ERS Task Force guidelines respectively using the Global Lung Function Initiative-2012 reference equations. Patient demonstrated good effort and cooperation. Reproducibility criteria were met. The quality of the pre bronchodilator spirometry maneuver was Grade A and post bronchodilator spirometry maneuver was Grade A. Findings: Spirometry: There is decreased maximal expiratory airflow at low lung volumes with concave expiratory flow tracing. The contour the inspiratory flow tracing is normal. The pre bronchodilator FVC was 1.09 L, 40% predicted. The pre bronchodilator FEV1 is 0.74 L, 35% predicted. The pre bronchodilator FEV1: FVC ratio is 68%. The post bronchodilator FVC is 1.12 L, representing a 2% increase. The post bronchodilator FEV1 is 0.74 L, representing is no change. The post bronchodilator FVC: FVC ratio 67%. Plethysmography: The total lung capacity is 3.22 L, 66% predicted. The functional residual capacity is 2.18 L, 78% predicted. The residual volume is 2.07 L, 97% predicted. Diffusing capacity: The diffusing capacity unadjusted for hemoglobin and carboxyhemoglobin is 9.3, 46% predicted. The diffusing capacity adjusted for alveolar volume is 4.47, 103% predicted. Impression: There is a combined obstructive and restrictive ventilatory abnormality. There are no guidelines to assign the severity of obstruction and restriction with a combined abnormality. In my opinion, given the moderately concave expiratory flow tracing and normal FEV1: FVC ratio and moderate restrictive abnormality I would state there is a mild obstructive abnormality and a moderate restrictive abnormality resulting in a severely decreased FEV1. There is no significant improvement after inhaling a single dose of albuterol. The diffusing capacity unadjusted for hemoglobin and carboxyhemoglobin is moderately decreased and normalizes when adjusted for alveolar volume. There are no prior studies for comparison 11/24/2022 Home O2 assessment - Patient requires no oxygen at rest and 4 with exercise. She had a negative PATRICIA panel in 2021. Echo 11/21/22 ? Summary 1. Complete two-dimensional, color flow and Doppler transthoracic echocardiogram is performed. 2. Left ventricular chamber dimension is normal. 3. Left ventricular systolic function is normal, estimated at 60-65%. 4. There is moderate concentric increased left ventricular wall thickness. 5. The left ventricular diastolic function is abnormal. 6. E/e' 28 is elevated. 7. Left atrial chamber dimension is moderately enlarged. 8. There is mild aortic valve sclerosis. 9. The mitral valve has mildly calcified leaflets and moderately calcified annulus. 10. There is trace mitral valve regurgitation. 11. There is mild tricuspid valve regurgitation. 12. Moderate pulmonary hypertension, estimated pulmonary arterial systolic pressure is 59 mmHg. 13. There is trace pulmonic regurgitation. 14. Dilated inferior vena cava with >50% collapse upon inspiration consistent with elevated right atrial pressure, 10 mmHg. 11/20/2022: EXAMINATION: CTA chest PE protocol INDICATION: Dyspnea. Recently treated for pneumonia. COMPARISON: 11/20/2022 2 view chest 08/26/2022 CT pulmonary scan FINDINGS: There is diagnostic contrast enhancement of the pulmonary arteries and no evidence of pulmonary embolism. There is old pulmonary granulomatous disease. Status post sternotomy and mitral valve replacement. Normal heart size. No thoracic aortic aneurysm. No hilar or mediastinal mass lesion or lymphadenopathy. There is patchy groundglass densities scattered throughout both lungs which may be due to small airways disease, atelectasis and/or pneumonia. Postoperative change of the lower cervical spine. Degenerative spurring of the thoracic spine. Right glenohumeral arthroplasty. IMPRESSION: No evidence of pulmonary embolus Scattered patchy groundglass infiltrates throughout both lungs which may be due to small airways disease, atelectasis and/or pneumonia 08/26/2022: EXAMINATION: CTA chest PE protocol DATE: 08/26/2022 11:23 INDICATION: Shortness of breath and hypoxia TECHNIQUE: Computed tomography angiography (CTA) of the chest was performed with 100 mL Omnipaque-350 intravenous contrast timed to evaluate the pulmonary arteries. Coronal maximum intensity projection 3D-reconstructions were created by the technologist. The dose-length product (DLP) was 621.73 mGy-cm. Automated exposure control and iterative reconstruction technique were employed. COMPARISON: 06/26/2019 FINDINGS: The pulmonary arteries are well-opacified. No pulmonary embolism is identified. There are airspace opacities of the lung apices. Chronic areas of air-trapping are noted throughout the lungs. No pleural effusion or pneumothorax. There are changes of coronary artery bypass grafting and mitral valve surgery. No pathologically enlarged thoracic lymph nodes are identified. The heart size is normal. There is moderate thoracic spondylosis. IMPRESSION: 1. No pulmonary embolus identified. 2. Minimal airspace opacities of the lung apices, likely infection/inflammation. 06/26/2019:EXAMINATION: CTA CHEST (PULMONARY ART) DATE: 06/26/2019 10:03 INDICATION: Shortness of breath. Hypoxia. Subtherapeutic INR. COMPARISON: 06/24/2019 2 view chest 12/21/2017 CTA chest FINDINGS: There is diagnostic contrast enhancement the pulmonary arteries and no evidence of pulmonary embolism. Normal heart size. Mitral valve replacement and sternotomy are noted. No thoracic aortic aneurysm or dissection. No hilar or mediastinal mass lesion or lymphadenopathy. There is right upper lobe patchy infiltrate. There are couple of areas of left lower lobe tree-in-bud infiltrate. Status post lower anterior cervical spine surgical fusion. There is degenerative disease of the cervical spine and diffuse idiopathic skeletal hyperostosis of the thoracic spine. IMPRESSION: No evidence of pulmonary embolism. Patchy right upper lobe and left lower lobe infiltrates 04/18/2010: CT chest without contrast History: Shortness of breath Technique: 5 mm slices in the axial plane and 1.25 mm high resolution slices. Comparison: CT from 01/24/10 Findings: The groundglass opacities in the lungs have substantially improved. Mild nodularity is present in the periphery of the lungs. The nodules are most numerous in the right middle lobe hand are centrilobular in distribution. The airways are patent. A calcified granuloma is present in the right lower lobe. Right hilar calcified lymph nodes are present. The heart size and aortic caliber are normal. Pulmonary vascularity is normal. No pneumothorax or plural effusions are present. The lymph nodes are subcentimeter. Degenerative changes are present in the cervical and thoracic spine. No interstitial thickeing or architectural distortion is present in the high resolution images. Impression: 1. Substantially improved bilateral airspace opacities. Bronchiolitis which is relatively greatest in the periphery of the right middle lobe. 12/21/2017: EXAMINATION: CTA CHEST (AORTA) NON CORONARY DATE: 12/21/17 INDICATION: Upper back pain. TECHNIQUE: Computed tomographic angiography (CTA) of the chest was performed without and with 100 mL Omnipaque-350 intravenous contrast. Volume-rendered 3D-reconstructions of the aorta and large arteries were constructed by the technologist on a separate workstation. Automated exposure control and iterative reconstruction technique were employed. The dose-length product was 586 mGy-cm. COMPARISON: None. FINDINGS: No mosaic attenuation in the lungs with similar appearance to the pulmonary vasculature in both the more dense and lucent regions of the lung which would favor air trapping and small artery disease over small vessel disease. Calcified nodule in the super segment of the right lower lobe and calcified right hilar lymph node consistent with old granulomatous disease. No pneumonia, pulmonary edema, pleural effusion or pneumothorax. No pulmonary embolism. Heart size is normal. Postoperative changes of prior median sternotomy with both coronary artery bypass grafting and mitral valve repair. No pericardial effusion. Thoracic aorta is normal in caliber with no dissection. No pathologically enlarged thoracic lymphadenopathy. Mild wall thickening the distal esophagus which could be seen with esophagitis. Anterior spinal fusion with anterior plate and screw fixation at C5-C6. Incompletely visualized right total shoulder arthroplasty. Moderate thoracic spondylosis with stable appearance of mild anterior wedging of several mid-lower thoracic vertebral bodies. IMPRESSION: 1. No acute cardiopulmonary disease or acute osseous abnormality. Specifically no aortic aneurysm or dissection. 2. Mild wall thickening in the distal esophagus which could be seen with esophagitis. 3. Mosaic attenuation in both lungs consistent with small airway disease and mild subsegmental air trapping. 4. Postoperative changes of prior median sternotomy, coronary artery bypass grafting, mitral valve repair, 11/30/2013: CT CHEST HIGH RESOLUTION W/O INDICATION: Shortness of breath, pulmonary hypertension. TECHNIQUE: Spiral CT of the chest was performed without intravenous contrast. Axial, coronal and sagittal images were reviewed. HRCT obtained. The exam was reviewed on 11/30/13. Correlation was made with pulmonary CT same date. FINDINGS: HRCT demonstrates no interlobular septal thickening to suggest interstitial lung disease. Interval improvement in the bilateral groundglass opacities involving all lobes with perihilar distribution, characteristic for pulmonary edema. There are smaller patchy more confluent opacifications in the right infrahilar region. Can't exclude pneumonia for these opacities. Pulmonary arteries are within normal size limits. Tracheobronchial tree is patent. There is no mediastinal, hilar or axillary lymphadenopathy. Again there is small pleural effusions. There is no pneumothorax. Heart normal in size. Upper abdomen is unremarkable. Mild thoracic spondylosis. There are no osteoblastic or osteolytic lesions identified. IMPRESSION: 1. Improving bilateral perihilar opacities, more likely pulmonary edema than infection. 2. Small bilateral pleural effusions, unchanged. 01/24/2010: CT scan of the chest. INDICATION: Shortness of breath TECHNIQUE: Routine contrast enhanced pulmonary CTA COMPARISON: Chest x-ray dated 01/24/10 FINDINGS: No thoracic lymph node enlargement. No pleural or pericardial abnormality's. No endobronchial lesions. Heart size normal. Normal filling of the pulmonary arteries with contrast without evidence for pulmonary embolism. Sequela of prior granulomatous infection noted in the lisa and right lower lobe. Bibasilar dependent atelectasis. Patchy bilateral groundglass opacities are identified. No suspicious pulmonary nodules or masses. IMPRESSION: 1: Patchy bilateral groundglass opacities are identified involving all lobes. Differential diagnosis includes atypical pneumonia (viral pneumonia and PCP) , chronic infiltrative lung disease (bronchiolitis, nonspecific interstitial pneumonitis, DIP ), acute airspace disease (pulmonary edema, hypersensitivity pneumonitis, eosinophilic pneumonia). Less likely considerations include bronchioloalveolar cell carcinoma. 2: No evidence for pulmonary embolism. Review of Systems Constitutional: Constitutional: Reports no additional constitutional complaints Eyes: Eyes: Reports no additional eye complaints ENT: Reports system reviewed and no additional complaints, except as documented Cardiovascular: Cardiovascular: Reports no additional cardiovascular complaints Respiratory: Respiratory: Reports no additional respiratory complaints Gastrointestinal: Gastrointestinal: Reports no additional gastrointestinal complaints Musculoskeletal: Musculoskeletal: Reports no additional musculoskeletal complaints Neurologic: Reports system reviewed and no additional complaints, except as documented Psychiatric: Psychiatric: Reports no additional psychiatric complaints Endocrine: Endocrine: Reports no additional endocrine complaints Hematologic/Lymphatic: Hematologic/Lymphatic: Reports no additional hematologic/lymphatic complaints Allergic/Immunologic: Allergic/Immunologic: Reports no additional allergic/immunologic complaints Exam Const: General: comfortable and no acute distress Other: patient with a neck brace on in no respiratory distress. HENMT: Head: normal to inspection Ears: hearing grossly normal bilaterally Eyes: General: appearance normal, both eyes and all related structures Neck: Neck: normal visual inspection Chest: Chest palpation & inspection: normal inspection of the chest Resp: Effort & Inspection: normal respiratory effort and able to speak in complete sentences Auscultation: no crackles, no rales, no rhonchi, no wheezes and lung sounds not diminished Other: Clear to auscultation. Cardio: Jugular venous distension: no JVD GI: Inspection: normal to inspection Skin: General skin exam: normal color Neuro: Other: Patient following commands and conversing normally. Extrem: General: normal to inspection Psych: Appearance: grossly normal Objective Data Vital Signs Vital Signs: Vital Signs - 24 hr 07/16/25 13:00 07/16/25 16:00 07/16/25 20:00 Temperature 37.7 C H 36.9 C Pulse Rate 88 67 Respiratory Rate 20 18 Blood Pressure 125/57 L 142/72 H Pulse Oximetry 100 94 98 Oxygen Delivery Nasal Cannula Oxygen Flow Rate 3 07/16/25 20:00 07/17/25 06:00 07/17/25 08:38 Temperature 36.6 C 36.2 C L Pulse Rate 96 90 89 Respiratory Rate 16 16 Blood Pressure 140/63 106/73 Pulse Oximetry 98 100 Oxygen Delivery Oxygen Flow Rate 07/17/25 10:03 07/17/25 10:23 Temperature Pulse Rate Respiratory Rate Blood Pressure Pulse Oximetry Oxygen Delivery Nasal Cannula Nasal Cannula Oxygen Flow Rate 2 2 Intake/Output Intake/Output: Intake & Output 07/14/25 07/15/25 07/16/25 07/17/25 23:59 23:59 23:59 23:59 Intake Total 500 1453.4 1325 270 Output Total 2950 2125 951 551 Balance -2450 -671.6 001 -019 Meds/Results Medications: Active Medications Generic Name Dose Route Start Last Admin Trade Name Freq PRN Reason Stop Dose Admin Acetaminophen 650 mg 07/07/25 08:10 07/15/25 13:04 Acetaminophen 325 Mg Tablet PO 650 mg Q4H PRN Administration Mild Pain (1-3) or Fever Acetaminophen 650 mg 07/10/25 17:36 07/10/25 21:18 Acetaminophen 650 Mg Suppository RECTAL 650 mg Q6H PRN Administration Fever Dextrose 12.5 gm 07/10/25 15:08 Dextrose 50% 25 Gm/50 Ml Syringe IV PUSH PRN PRN Hypoglycemia Protocol Glucagon 1 mg 07/10/25 15:08 Glucagon For Inj 1 Mg Vial IM PRN PRN Hypoglycemia Protocol Glucose 15 gm 07/10/25 15:08 Glucose Oral Gel 15 Gm Of Glucse In 37.5 Gm Tube PO PRN PRN Hypoglycemia Protocol Dextrose 1,000 mls @ 100 mls/hr 07/10/25 15:08 Dextrose 5% 1,000 Ml IVPB PRN PRN Hypoglycemia Protocol Insulin Aspart 3 - 6 units 07/10/25 17:00 07/17/25 11:46 Insulin Aspart (*Bkc) 100 Units/Ml SUB-Q 3 units Q4HR IVONE Administration Protocol Insulin Glargine 10 units 07/12/25 09:00 07/17/25 09:07 Insulin Glargine (*Bkc) 100 Units/Ml SUB-Q 10 units DAILY IVONE Administration Ipratropium [place] 0.5 mg 07/14/25 08:25 Ipratropium Br 0.02% Inh Soln 0.5 Mg/2.5 Ml Vial INHALATION Q6HRT PRN Wheezing Levalbuterol HCl 0.63 mg 07/14/25 08:25 Levalbuterol Neb 1.25 Mg/3 Ml INHALATION Q6HRT PRN Wheezing Loperamide HCl 2 mg 07/07/25 14:57 Loperamide Hcl 2 Mg Capsule PO PRN PRN Diarrhea Metoprolol Tartrate 5 mg 07/15/25 11:44 Metoprolol Tartrate Inj 5 Mg/5 Ml Vial IV PUSH Q3H PRN HR > 120 sustained Pantoprazole Sodium 40 mg 07/18/25 09:00 Pantoprazole 40 Mg Tablet PO QAM IVONE Potassium Chloride 20 meq 07/18/25 09:00 Potassium Chloride 20 Meq Packet (For Liquid) PO DAILY [facility] Pramipexole Dihydrochloride 0.5 mg 07/07/25 21:00 07/16/25 22:15 Pramipexole 0.5 Mg Tablet PO 0.5 mg HS IVONE Administration Pravastatin Sodium 10 mg 07/08/25 09:00 07/17/25 08:39 Pravastatin Sodium 10 Mg Tablet BY MOUTH 10 mg DAILY IVONE Administration Prednisone 10 mg 07/18/25 08:00 Prednisone 10 Mg Tablet PO DAILY@0800 [facility] Rivaroxaban 20 mg 07/17/25 17:00 Rivaroxaban 20 Mg Tablet PO DAILY@1700 [facility] Sodium Chloride 20 ml 07/10/25 20:33 Central Line Flush IV PUSH PRN PRN after blood draws Sodium Chloride 10 ml 07/13/25 14:00 07/17/25 06:22 Central Line Flush IV PUSH 10 ml Q8HR IVONE Administration Sodium Chloride 10 ml 07/13/25 08:09 Central Line Flush IV PUSH PRN PRN with TPN bag changes Sodium Chloride 20 ml 07/13/25 08:09 Central Line Flush IV PUSH PRN PRN after blood draws Sotalol HCl 80 mg 07/16/25 21:00 07/17/25 08:38 Sotalol Hcl 80 Mg Tablet PO 80 mg Q12HR IVONE Administration Trimethobenzamide HCl 200 mg 07/07/25 14:56 07/12/25 04:26 Trimethobenzamide Hcl 200 Mg/2 Ml Vial IM 200 mg Q6H PRN Administration Nausea And Vomiting Radiology Results: ITS Impressions Cervical Spine CT 07/07/25 06:30 IMPRESSION: HEAD: 1. No acute intracranial findings. 2. Bilateral mastoiditis. C-SPINE: 1. No acute fracture. 2. Ill-defined fluid and postoperative changes posterior to upper cervical spine. 3. Extensive bilateral upper lung airspace disease, and left pleural effusion. Chest/Abdomen/Pelvis CT 07/07/25 07:13 IMPRESSION: 1. Diffuse lung disease, likely a combination of pneumonia in the upper lobes and left lower lobe and mild pulmonary edema. 2. Small pleural effusions. 3. Colitis involving the rectosigmoid. Head CT 07/10/25 15:36 Impression: 1.No acute intracranial abnormality. Abdomen/Pelvis CT 07/13/25 13:46 IMPRESSION: 1. Increased size of pleural effusions which are small to moderate compared to small on the previous exam. Bibasilar atelectatic changes with possible developing consolidation and/or vascular congestion. 2. Fluid and gas dilated rectosigmoid region with findings suggestive of mild colitis and diarrhea process. 3. Extraperitoneal findings of uncertain significance possibly associated with the air foci associated with injections. Correlate clinically to exclude active inflammatory/infectious process in the extra peritoneal soft tissues. NG Tube Placement 07/13/25 14:43 IMPRESSION: 1. Fluoroscopy utilized during placement of a nasogastric tube with distal tip in proximal side port in the body the stomach. Chest X-Ray 07/17/25 08:13 Impression: CHF. Superimposed pneumonia is suspected. The findings appear slightly progressed compared to the previous study. Abdomen X-Ray 07/17/25 08:30 IMPRESSION: Unchanged exam compared to yesterday. Labs Labs: Laboratory Results - last 24 hr 07/16/25 07/16/25 07/16/25 15:05 16:14 21:34 WBC RBC Hgb Hct MCV MCH MCHC RDW Plt Count MPV Sodium Potassium Chloride Carbon Dioxide Anion Gap BUN Creatinine Estim Creat Clear Calc Estimated GFR Glucose POC Capillary Glucose 315 H 302 H Calcium Magnesium Total Bilirubin AST ALT Alkaline Phosphatase C-Reactive Protein NT-Pro-B Natriuret Pep Total Protein Albumin Procalcitonin C. difficile (PCR) Negative 07/17/25 07/17/25 07/17/25 01:29 05:00 05:10 WBC 10.5 H RBC 3.24 L Hgb 8.9 L Hct 30.7 L MCV 94.8 MCH 27.5 MCHC 29.0 L RDW 19.0 H Plt Count 206 MPV 11.1 H Sodium 132 L Potassium 3.2 L Chloride 100 Carbon Dioxide 33 H Anion Gap -1 L BUN 22 H Creatinine 0.87 Estim Creat Clear Calc 46 Estimated GFR > 60 Glucose 106 POC Capillary Glucose 163 H 127 H Calcium 8.6 Magnesium 1.7 Total Bilirubin 0.4 AST 30 ALT 18 Alkaline Phosphatase 143 H C-Reactive Protein < 0.5 NT-Pro-B Natriuret Pep 3220 H Total Protein 4.9 L Albumin 2.7 L Procalcitonin 0.1 C. difficile (PCR) 07/17/25 07/17/25 07:34 11:39 WBC RBC Hgb Hct MCV MCH MCHC RDW Plt Count MPV Sodium Potassium Chloride Carbon Dioxide Anion Gap BUN Creatinine Estim Creat Clear Calc Estimated GFR Glucose POC Capillary Glucose 117 H 206 H Calcium Magnesium Total Bilirubin AST ALT Alkaline Phosphatase C-Reactive Protein NT-Pro-B Natriuret Pep Total Protein Albumin Procalcitonin C. difficile (PCR)
[2025-07-17 12:14] LABS: Oxygen Saturation ABG 87.3 % (95.0-100.0)
[2025-07-17 12:15] LABS: Modified Allen's Test Pass; Site Drawn RIGHT RADIAL
[2025-07-17 13:30] VITALS: BP 114/51; PULSE 92; RESP 18; TEMP 36.4; O2SAT 93
[2025-07-17] MEDS: RIVAROXABAN 20 MG TABLET PO (16:29)
[2025-07-17] MEDS: PRAMIPEXOLE 0.5 MG TABLET PO (21:59)
[2025-07-17 22:00] VITALS: BP 126/55; PULSE 77; PULSE 80; RESP 16; TEMP 36.3; O2SAT 93
[2025-07-17 22:10] VITALS: O2SAT 95
[2025-07-18 06:00] VITALS: BP 129/61; PULSE 76; RESP 18; TEMP 36.2; O2SAT 99
[2025-07-18] MEDS: CENTRAL LINE FLUSH 20 ML IV PUSH (06:09)
[2025-07-18] MEDS: CENTRAL LINE FLUSH 10 ML IV PUSH ×3 (06:10→21:36)
[2025-07-18 06:33] LABS: Hematocrit 29.8 % (37.0-47.0); Hemoglobin 9.0 g/dL (12.0-15.0); Mean Corpuscular HGB Conc 30.2 g/dl (32-36); Mean Corpuscular Hemoglobin 28.3 pg (26-34); Mean Corpuscular Volume 93.7 fl (80-100); Platelet Count Result 185 k/mm3 (150-375); Red Blood Count 3.18 M/mm3 (4.2-5.4); White Blood Count 9.3 K/mm3 (4.5-10.0)
[2025-07-18 06:55] LABS: Alanine Aminotransferase 21 U/L (6-35); Albumin Level 2.6 g/dL (3.5-5.1); Alkaline Phosphatase 155 U/L (38-126); Anion Gap 2 mmol/L (4-12); Aspartate Amino Transferase 28 U/L (14-36); Bilirubin,Total 0.3 mg/dL (0.2-1.3); Blood Urea Nitrogen 19 mg/dL (7-17); Calcium 8.0 mg/dL (8.4-10.2); Carbon Dioxide 30 mmol/L (22-30); Chloride 100 mmol/L (98-107); Estimated CRCL calculation 51 ml/min; Estimated Glomerular Filt Rate > 60; Glucose 111 mg/dL (65-110); Magnesium 2.0 mg/dL (1.6-2.3); Potassium 2.6 mmol/L (3.4-5.0); Sodium 132 mmol/L (137-145); Total Protein 4.9 g/dL (6.3-8.2)
[2025-07-18 08:00] VITALS: O2SAT 92
[2025-07-18 08:06] VITALS: PULSE 72
[2025-07-18] MEDS: SOTALOL HCL 80 MG TABLET PO ×2 (08:06→21:33)
[2025-07-18] MEDS: POTASSIUM CHLORIDE 20 MEQ ER TABLET 40 MEQ PO ×2 (08:07→16:20)
[2025-07-18] MEDS: PANTOPRAZOLE 40 MG TABLET PO (08:07)
[2025-07-18] MEDS: PRAVASTATIN SODIUM 10 MG TABLET BY MOUTH (08:07)
[2025-07-18] MEDS: KCL 20 MEQ/SW 100 ML 100 ML 50 MEQ IVPB (08:09)
[2025-07-18] MEDS: POTASSIUM CHLORIDE 20 MEQ PACKET (FOR LIQUID) PO (08:09)
[2025-07-18] MEDS: INSULIN GLARGINE (*BKC) 100 UNITS/ML 10 UNITS SUB-Q (08:20)
--- NOTE | 2025-07-18 08:33 | P.PNIM_ITS ---
Progress Note: A&P Assessment and Plan (1) Sarcoid: Code(s): D86.9 - Sarcoidosis, unspecified Status: Acute (2) Ileus: Code(s): K56.7 - Ileus, unspecified Status: Acute Plan Debility -PT OT consulted -patient may benefit from inpatient rehab -discussed with case management Ileus, resolved -KUB concerning for worsening dilated loops of bowel -appreciate GI consult: Advanced diet as tolerated -appreciate general surgical consultation: Advanced diet as tolerated -abdominal CT scan with contrast 07/13: Including dilated rectosigmoid concerning for colitis, no SBO -NG tube placed by IR 07/13, now removed -advancing to soft foods 07/17 Multifocal atrial tachycardia, improved Paroxysmal atrial fibrillation, improved -patient has paroxysmal atrial fibrillation on Xarelto and rate control with sotalol -currently patient appears to have atrial tachycardia heart rate fluctuating from 90 to 140s -appreciate Cardiology consultation Dr. Sorensen: Continue sotalol, outpatient referral for EP ablation -history of paroxysmal atrial fibrillation -goal K>4, K 3.2 giving 40mEq x2 -goal Mg>2, mg 1.7 giving 2g mag sulfate Acute hypoxic respiratory failure Community-acquired pneumonia Sarcoidosis -patient on heated high-flow oxygen changed to nasal cannula 3L, not on bipap -appreciate pulmonology management -antibiotics: Completed empirically 5 days of antibiotics vancomycin/cefepime, doxycycline -monitor fever curve, Tmax 37.7 yesterday. procalcitonin negative 07/17 -MRSA nares positive -steroids: solu-medrol to home dose prednisone 10mg daily Chronic conditions -type 2 diabetes: Monitor glucose, resuming glargine 10 units daily, sliding scale insulin -polymyalgia rheumatica -pulmonary hypertension, HFpEF: resume home lasix 40mg PO daily, BNP 3220, will monitor blood pressure closely -recent c-spine surgery. Posterior cervical decompression and fusion C2-6 at [facility] on 06/26/25 keep c-collar on for [address] Lowry. C-collar in place. -hyperlipidemia: Pravastatin -RLS: Mirapex, Robaxin -essential hypertension: holding Losartan for low BP, on sotalol -supplements: Vitamin D3 Diet: Advanced to soft food DVT prophylaxis: SCDs, resume home xarelto GI prophylaxis: Protonix Code status: Full code Disposition: plan for discharge to rehab Subjective Date/time seen: 07/18/25 08:33 Interval history: Patient had multiple episodes of diarrhea. C diff negative. Given 1 dose of Imodium. Replaced potassium. Respiratory hill patient is currently doing well Review of Systems Review of Systems: 10 point ROS complete, negative other th an what is specified in HPI. All systems reviewed & are unremarkable except as noted in HPI and below ROS unobtainable: Yes unobtainable due to medical condition and unobtainable due to mental status Exam Narrative: - GENERAL: Pleasant chronically ill-lior earing elderly woman in no acute distress - EYES: EOMI. Anicteric. - HENT: Moist mucous membranes. C-colla r in place - LUNGS: Clear to auscultation on 2L O2 - CARDIOVASCULAR: Regular rate and rhyt hm - ABDOMEN: Soft, nondistended, nontender , bowel sounds present - EXTREMITIES: No edema. Peripheral puls es 2+. eschar wound on left forearm - NEUROLOGIC: No focal neurological defi cits. CN II-XII grossly intact. - PSYCHIATRIC: Awake, Alert and oriented x 3. Appropriate mood and affect. Objective Data Vital Signs Vital Signs: Vital Signs - 24 hr 07/17/25 08:38 07/17/25 10:03 07/17/25 10:23 Temperature Pulse Rate 89 Respiratory Rate Blood Pressure Pulse Oximetry Oxygen Delivery Nasal Cannula Nasal Cannula Oxygen Flow Rate 2 2 07/17/25 13:30 07/17/25 20:00 07/17/25 22:00 Temperature 97.6 F Pulse Rate 92 80 Respiratory Rate 18 Blood Pressure 114/51 L Pulse Oximetry 93 Oxygen Delivery Room Air Oxygen Flow Rate 07/17/25 22:00 07/17/25 22:10 07/18/25 06:00 Temperature 97.3 F L 97.2 F L Pulse Rate 77 76 Respiratory Rate 16 18 Blood Pressure 126/55 L 129/61 Pulse Oximetry 93 95 99 Oxygen Delivery Nasal Cannula Oxygen Flow Rate 2 07/18/25 08:06 Temperature Pulse Rate 72 Respiratory Rate Blood Pressure Pulse Oximetry Oxygen Delivery Oxygen Flow Rate Intake/Output Intake/Output: Intake & Output 07/15/25 07/16/25 07/17/25 07/18/25 23:59 23:59 23:59 23:59 Intake Total 1453.4 1325 1310 600 Output Total 2125 951 2451 1500 Balance -671.6 123 -8118 -090 Meds/Results Medications: Active Medications Generic Name Dose Route Start Last Admin Trade Name Freq PRN Reason Stop Dose Admin Acetaminophen 650 mg 07/07/25 08:10 07/15/25 13:04 Acetaminophen 325 Mg Tablet PO 650 mg Q4H PRN Administration Mild Pain (1-3) or Fever Acetaminophen 650 mg 07/10/25 17:36 07/10/25 21:18 Acetaminophen 650 Mg Suppository RECTAL 650 mg Q6H PRN Administration Fever Dextrose 12.5 gm 07/10/25 15:08 Dextrose 50% 25 Gm/50 Ml Syringe IV PUSH PRN PRN Hypoglycemia Protocol Glucagon 1 mg 07/10/25 15:08 Glucagon For Inj 1 Mg Vial IM PRN PRN Hypoglycemia Protocol Glucose 15 gm 07/10/25 15:08 Glucose Oral Gel 15 Gm Of Glucse In 37.5 Gm Tube PO PRN PRN Hypoglycemia Protocol Dextrose 1,000 mls @ 100 mls/hr 07/10/25 15:08 Dextrose 5% 1,000 Ml IVPB PRN PRN Hypoglycemia Protocol Potassium Chloride 100 mls @ 50 mls/hr 07/18/25 07:30 07/18/25 08:09 Kcl 20 Meq/Sw 100 Ml IVPB 07/18/25 09:29 50 mls/hr ONCE ONE Administration Insulin Aspart 3 - 6 units 07/10/25 17:00 07/18/25 08:30 Insulin Aspart (*Bkc) 100 Units/Ml SUB-Q Not Given Q4HR IVONE Protocol Insulin Glargine 10 units 07/12/25 09:00 07/18/25 08:20 Insulin Glargine (*Bkc) 100 Units/Ml SUB-Q 10 units DAILY IVONE Administration Ipratropium [place] 0.5 mg 07/14/25 08:25 Ipratropium Br 0.02% Inh Soln 0.5 Mg/2.5 Ml Vial INHALATION Q6HRT PRN Wheezing Levalbuterol HCl 0.63 mg 07/14/25 08:25 Levalbuterol Neb 1.25 Mg/3 Ml INHALATION Q6HRT PRN Wheezing Loperamide HCl 2 mg 07/07/25 14:57 Loperamide Hcl 2 Mg Capsule PO PRN PRN Diarrhea Metoprolol Tartrate 5 mg 07/15/25 11:44 Metoprolol Tartrate Inj 5 Mg/5 Ml Vial IV PUSH Q3H PRN HR > 120 sustained Pantoprazole Sodium 40 mg 07/18/25 09:00 07/18/25 08:07 Pantoprazole 40 Mg Tablet PO 40 mg QAM IVONE Administration Potassium Chloride 20 meq 07/18/25 09:00 07/18/25 08:09 Potassium Chloride 20 Meq Packet (For Liquid) PO 20 meq DAILY IVONE Administration Pramipexole Dihydrochloride 0.5 mg 07/07/25 21:00 07/17/25 21:59 Pramipexole 0.5 Mg Tablet PO 0.5 mg HS IVONE Administration Pravastatin Sodium 10 mg 07/08/25 09:00 07/18/25 08:07 Pravastatin Sodium 10 Mg Tablet BY MOUTH 10 mg DAILY IVONE Administration Prednisone 10 mg 07/18/25 08:00 07/18/25 08:18 Prednisone 10 Mg Tablet PO 10 mg DAILY@0800 IVONE Administration Rivaroxaban 20 mg 07/17/25 17:00 07/17/25 16:29 Rivaroxaban 20 Mg Tablet PO 20 mg DAILY@1700 IVONE Administration Sodium Chloride 20 ml 07/10/25 20:33 07/18/25 06:09 Central Line Flush IV PUSH 20 ml PRN PRN Administration after blood draws Sodium Chloride 10 ml 07/13/25 14:00 07/18/25 06:10 Central Line Flush IV PUSH 10 ml Q8HR IVONE Administration Sodium Chloride 10 ml 07/13/25 08:09 Central Line Flush IV PUSH PRN PRN with TPN bag changes Sodium Chloride 20 ml 07/13/25 08:09 Central Line Flush IV PUSH PRN PRN after blood draws Sotalol HCl 80 mg 07/16/25 21:00 07/18/25 08:06 Sotalol Hcl 80 Mg Tablet PO 80 mg Q12HR IVONE Administration Trimethobenzamide HCl 200 mg 07/07/25 14:56 07/12/25 04:26 Trimethobenzamide Hcl 200 Mg/2 Ml Vial IM 200 mg Q6H PRN Administration Nausea And Vomiting Radiology Results: ITS Impressions Cervical Spine CT 07/07/25 06:30 IMPRESSION: HEAD: 1. No acute intracranial findings. 2. Bilateral mastoiditis. C-SPINE: 1. No acute fracture. 2. Ill-defined fluid and postoperative changes posterior to upper cervical spine. 3. Extensive bilateral upper lung airspace disease, and left pleural effusion. Chest/Abdomen/Pelvis CT 07/07/25 07:13 IMPRESSION: 1. Diffuse lung disease, likely a combination of pneumonia in the upper lobes and left lower lobe and mild pulmonary edema. 2. Small pleural effusions. 3. Colitis involving the rectosigmoid. Head CT 07/10/25 15:36 Impression: 1.No acute intracranial abnormality. Abdomen/Pelvis CT 07/13/25 13:46 IMPRESSION: 1. Increased size of pleural effusions which are small to moderate compared to small on the previous exam. Bibasilar atelectatic changes with possible developing consolidation and/or vascular congestion. 2. Fluid and gas dilated rectosigmoid region with findings suggestive of mild colitis and diarrhea process. 3. Extraperitoneal findings of uncertain significance possibly associated with the air foci associated with injections. Correlate clinically to exclude active inflammatory/infectious process in the extra peritoneal soft tissues. NG Tube Placement 07/13/25 14:43 IMPRESSION: 1. Fluoroscopy utilized during placement of a nasogastric tube with distal tip in proximal side port in the body the stomach. Abdomen X-Ray 07/17/25 08:30 IMPRESSION: Unchanged exam compared to yesterday. Chest X-Ray 07/18/25 08:11 Impression: CHF. Superimposed probable pneumonia. The findings appear slightly progressed compared to the previous exam Labs Labs: Laboratory Results - last 24 hr 07/17/25 07/17/25 07/17/25 05:10 11:39 11:42 WBC RBC Hgb Hct MCV MCH MCHC RDW Plt Count MPV Puncture Site Right radial ABG pH 7.393 ABG pCO2 48.3 H ABG pO2 53.6 L ABG PO2/FiO2 Ratio 2.55 ABG HCO3 28.8 H ABG O2 Saturation 87.3 L* ABG O2 Content 12.2 L ABG Base Excess 3.3 A-a Gradient 38.3 Oxyhemoglobin 85.4 L* Carboxyhemoglobin 1.7 Methemoglobin 0.3 Reduced Hemoglobin 12.6 H Total Hemoglobin 10.1 L O2 Delivery Device Room air O2 Liters/Min Not Reportable FiO2 21 Sodium Potassium Chloride Carbon Dioxide Anion Gap BUN Creatinine Estim Creat Clear Calc Estimated GFR Glucose POC Capillary Glucose 206 H Calcium Magnesium Total Bilirubin AST ALT Alkaline Phosphatase Total Protein Albumin Procalcitonin 0.1 07/17/25 07/17/25 07/18/25 16:18 21:35 03:01 WBC RBC Hgb Hct MCV MCH MCHC RDW Plt Count MPV Puncture Site ABG pH ABG pCO2 ABG pO2 ABG PO2/FiO2 Ratio ABG HCO3 ABG O2 Saturation ABG O2 Content ABG Base Excess A-a Gradient Oxyhemoglobin Carboxyhemoglobin Methemoglobin Reduced Hemoglobin Total Hemoglobin O2 Delivery Device O2 Liters/Min FiO2 Sodium Potassium Chloride Carbon Dioxide Anion Gap BUN Creatinine Estim Creat Clear Calc Estimated GFR Glucose POC Capillary Glucose 227 H 273 H 126 H Calcium Magnesium Total Bilirubin AST ALT Alkaline Phosphatase Total Protein Albumin Procalcitonin 07/18/25 07/18/25 06:23 07:07 WBC 9.3 RBC 3.18 L Hgb 9.0 L Hct 29.8 L MCV 93.7 MCH 28.3 MCHC 30.2 L RDW 18.6 H Plt Count 185 MPV 11.2 H Puncture Site ABG pH ABG pCO2 ABG pO2 ABG PO2/FiO2 Ratio ABG HCO3 ABG O2 Saturation ABG O2 Content ABG Base Excess A-a Gradient Oxyhemoglobin Carboxyhemoglobin Methemoglobin Reduced Hemoglobin Total Hemoglobin O2 Delivery Device O2 Liters/Min FiO2 Sodium 132 L Potassium 2.6 L* Chloride 100 Carbon Dioxide 30 Anion Gap 2 L BUN 19 H Creatinine 0.78 Estim Creat Clear Calc 51 Estimated GFR > 60 Glucose 111 H POC Capillary Glucose 119 H Calcium 8.0 L Magnesium 2.0 Total Bilirubin 0.3 AST 28 ALT 21 Alkaline Phosphatase 155 H Total Protein 4.9 L Albumin 2.6 L Procalcitonin Quality VTE Prophylaxis VTE prophylaxis: mechanical ordered Hospitalist [facility] Advance Care Plan I have confirmed that the patient's Advanced Care Plan is present, code status is documented, or surrogate decision maker is listed in patient medical record.: Yes Medication Reconciliation I have utilized all available resources to obtain, update and review the patients current medications (includes all prescriptions, OTC, herbals, cannabis, and nutritional supplements).: Yes
--- NOTE | 2025-07-18 10:05 | P.PNPL_ITS ---
Progress Note: A&P Assessment and Plan (1) Respiratory failure with hypoxia and hypercapnia: Code(s): J96.91 - Respiratory failure, unspecified with hypoxia; J96.92 - Respiratory failure, unspecified with hypercapnia Status: Acute Assessment and Plan: When patient was last seen in the Pulmonary Clinic on 01/12/2023 and she was on no oxygen at rest and 4 L with activity. ABG on 11/20/2022 on room air was 7.42/41/73. The patient's tells me she has been on 2 L oxygen 24-7 for the last 2-3 years with home saturations 93-95%. I spoke to the . Patient was recently admitted to [facility] for 26 days. She was discharged to [facility] on 07/04/2025. During this hospitalization she had the above-mentioned cervical neck operation. In addition she had an abnormal CT scan with upper lobe infiltrates and high calcium levels. Patient was seen by the Pulmonary team and she underwent biopsy. After the biopsy the Pulmonary team told the that she had sarcoid and that she required prednisone 10 mg a day to control her calcium. The says that the patient never had respiratory distress but did have high carbon dioxide and she was transferred to the ICU for few days and required BiPAP mask treatment. After a few days she was transferred out of the ICU and did not wear the BiPAP any longer. The patient was discharged to [facility] on 2 L nasal cannula and the family was not told that she needed a BiPAP machine. The patient was supposed to be on prednisone 10 mg a day. 07/07/2025 patient presents after a fall and required 2 L nasal cannula at rest with saturations 91-94%. She has been diagnosed with a pansensitive E coli UTI and is being treated with ceftriaxone and azithromycin for UTI and possible pneumonia. 07/10/2025: Patient had altered mental status and was more somnolent and an ABG on 2 L nasal cannula 7.32/77.7/105. White blood cell count was 8.9, creatinine was 0.63. BNP was 3860, CRP was 2.6, procalcitonin was 0.1. Patient was empirically started on rate of 14, BiPAP 15/5 and then had hypoxia and one hour ago her settings were changed to a rate of 14, 18/8 and 70% FiO2. When I enter the room the patient was on BiPAP rate of 14, breathing 21 times a minute, pressures 18/8 with tidal volumes 375-425, minute ventilation 7.1, inspiratory time 0.8, rise of 5 and 70% FiO2 with 100% saturations. Patient w ould arouse to loud verbal commands, deep pain in all 4 extremities she would withdraw but she would not say her name. She would mumble but not follow any verbal commands. Unclear etiology of patient's altered mental status. Patient does have acute on chronic hypercarbic and hypoxemic respiratory failure although her blood gas earlier today shows acute on chronic hypercarbic respiratory failure with near complete compensation with a pH of 7.32/77.7/105. patient does have a UTI. Patient may have a pneumonia. Patient has a history of atrial fibrillation and anticoagulation has been held since 07/07/2025: Plan: Patient currently on ceftriaxone and azithromycin since 07/07/2025, day 4 both. I will repeat a blood gas on BiPAP to reassess patient's acid-base status. I will send a repeat COVID, influenza, RSV RT PCR assay, respiratory pathogen panel, urine for Legionella, urine for pneumococcal and serum mycoplasma IgM. Blood cultures are pending. I have ordered an echocardiogram. Repeat ABG on BIPAP 7.32/78.7/152. I went to bedside and placed patient on AVAPS rate 20, TV 500, epap 5, min I PAP 6, max IPAP 25, I time 0.65, rise of 3 and 30% FIO2. I discussed with inte nsivist and plan to move to ICU. Patient transferred to ICU, placed on noninvasive ventilation with the AVAPS mode, required norepinephrine. patient slowly improved over the next 10 days with broad-spectrum antibiotics, steroids, NG suction for ileus. Last use of noninvasive ventilation 07/13/2025. 07/17/2025: The patient is awake and alert. She tells me she has no rest shortness of breath. She has not been out of bed. With activity in bed she has no dyspnea on exertion. She denies cough, phlegm or hemoptysis. She has diarrhea 3 to 4 times a day and is tolerating soft diet. She Had a fever yesterday at 1:00 p.m.. When I enter the room she was on 2 L nasal cannula saturations 97%. I decreased her room air and after 11 minutes her saturations were 90-91%. White blood cell count 10.5, creatinine 0.87. BNP is improved from 3860 on 07/10/2025 to 3220. CRP has improved from 1.6 on 07/11/2025 does less than 0.5 today. Procalcitonin remains 0.1 on 07/14/2025 to 0.1 today. Her weight is 73.4 kg. Cumulative she is -5.9 L since admission. ABG on room air was 7.39/48/54. Plan: The patient's tells me she has been on 2 L oxygen 24-7 for the last 2-3 years with home saturations 93-95%. 07/17/2025: The patient is awake and alert. She tells me she has no rest shortness of breath. She has not been out of bed. With activity in bed she has no dyspnea on exertion. She denies cough, phlegm or hemoptysis. She has diarrhea 3 to 4 times a day and is tolerating soft diet. She Had a fever yesterday at 1:00 p.m.. When I enter the room she was on 2 L nasal cannula saturations 97%. I decreased her room air and after 11 minutes her saturations were 90-91%. White blood cell count 10.5, creatinine 0.87. BNP is improved from 3860 on 07/10/2025 to 3220. CRP has improved from 1.6 on 07/11/2025 does less than 0.5 today. Procalcitonin remains 0.1 on 07/14/2025 to 0.1 today. Her weight is 73.4 kg. Cumulative she is -5.9 L since admission. ABG on room air was 7.39/48/54. Plan: According to the patient is chronically been on 2 L 24-7 for the last 2-3 years. Currently she is down to room air with saturation 90 to 91%. She will likely require more oxygen with activity. ABG demonstrates respiratory acidosis and metabolic alkalosis with a pCO2 of 48. She would not qualify for home noninvasive ventilation. Goal saturation 90-94% with rest, and activity. Per the patient's the Plan for discharge to a [facility] or home. In case she goes home, I will perform overnight oximetry tonight on 2 L to assess for nocturnal hypoxemia. 07/18/2025: Patient tells me she is breathing normally. She denies fever, chills, rigors, cough, phlegm or hemoptysis. She got out of bed yesterday. She is afebrile. Room air saturations 93%. White blood cell count 9.3, creatinine 0.78, yesterday she was positive 374 mL and cumulative she is -6.7 L since admission. Patient had an overnight oximetry on 2 L with recording duration of 7 hours and 12 minutes, average saturation 94%, low saturation 84%, time with saturation less than or equal to 88% was 3 minutes, oxygen desaturation index 4.6. From a pulmonary perspective patient is ready to be discharged on these pulmonary medicines: Prednisone 10 mg p.o. q.day Patient to follow-up with a admitting supervisor at [facility]. Discussed with Dr. Brown, will sign off, call with questions. (2) Pulmonary hypertension: Code(s): I27.20 - Pulmonary hypertension, unspecified Status: Acute Assessment and Plan: 11/21/2022: Echocardiogram with RVSP 59. Etiology of pulmonary hypertension include sleep-related breathing disorder, sarcoidosis, coronary artery disease with mitral valve repair since 2013. 07/10/2025: Patient presented with fall. Plan: I will repeat echocardiogram to reassess LV function, RV function, pulmonary pressures and valves. 07/11/25: echocardiogram with LVEF 65-70, abnormal diastolic function, reduced RV function, mildly enlarged left atrium, moderate aortic valve sclerosis, trace mitral regurg, moderate tricuspid regurg with PASP of 60. plan: Continue to treat sarcoid, hypoxemic respiratory failure, Fluid overload, possible pneumonia and repeat echocardiogram as an outpatient. (3) Sarcoid: Code(s): D86.9 - Sarcoidosis, unspecified Status: Acute Assessment and Plan: Regarding her sarcoid: CT scan 12/21/2024 with increased upper lobe nodular infiltrates and reticulations compared to 11/20/2024. Unchanged lower lobe mosaic attenuation. 11/20/22 to 11/24/22 she was hospitalized for pneumonia and hypoxemic respiratory failure.? CT angiogram 11/20/2022 demonstrated no pulmonary embolism, diffuse mosaic attenuation in all lung ruvalcaba which was present on CT angiogram from 08/26/2022, CT abdomen on 07/09/2022, CTA on 06/26/2019, 12/21/2017 and mosiac attenuation had increased from 11/30/2013. Reports of high resolution CT scan and 04/18/2010 demonstrated improved infiltrates and mosaic attenuation. 07/10/25: I spoke to the . Patient was recently admitted to [facility] for 26 days (about 06/07/25 through 07/04/25). She was discharged to [facility] on 07/04/2025. During this hospitalization she had the above-mentioned cervical neck operation. In addition she had an abnormal CT scan with upper lobe infiltrates and high calcium levels. Patient was seen by the Pulmonary team and she underwent biopsy. After the biopsy the Pulmonary team told the that she had sarcoid and that she required prednisone 10 mg a day to control her calcium. The says that the patient never had respiratory distress but did have high carbon dioxide and she was transferred to the ICU for few days and required BiPAP mask treatment. After a few days she was transferred out of the ICU and did not wear the BiPAP any longer. The patient was discharged to [facility] on 2 L nasal cannula and the family was not told that she needed a BiPAP machine. The patient was supposed to be on prednisone 10 mg a day. 01/07/2023: PFTs Impression: There is a combined obstructive and restrictive ventilatory abnormality. There are no guidelines to assign the severity of obstruction and restriction with a combined abnormality. In my opinion, given the moderately concave expiratory flow tracing and normal FEV1: FVC ratio and moderate restrictive abnormality I would state there is a mild obstructive abnormality and a moderate restrictive abnormality resulting in a severely decreased FEV1. There is no significant improvement after inhaling a single dose of albuterol. The diffusing capacity unadjusted for hemoglobin and carboxyhemoglobin is moderately decreased and normalizes when adjusted for alveolar volume. On 06/12/2025 patient had a bronchoscopy at [facility]. This was performed for CT scan with numerous upper lobe nodules and concern for sarcoidosis. I have pathology reports from BAL and right upper lobe biopsies which demonstrated few noncaseating granulomas with scattered clusters of multinucleated giant cells special stains were negative for AFB and GMS. BAL was negative for malignancy.: Right upper lobe BAL: Side is pins and cell block: Negative for malignancy. 07/07/2025: CT scan of the chest showed bilateral right upper lobe greater than left upper lobe homogeneous reticulations with nodular infiltrates, small bilateral pleural effusions left greater than right, no change in her upper lobe or lower lobe mosaic attenuation from 12/21/2024. Etiology of interstitial lung disease is sarcoidosis and less likely hypersensitivity pneumonitis, chronic AFB-fungal infection, or rheumatoid lung. Plan: Patient family was told she needed prednisone 10 mg a day to control her calcium. Prednisone is not listed as a home medicine from [facility]. Calcium was 8.4 on admission to our hospital on 07/07/2025 and today is 8.9. Patient has an active urinary tract infection and at this time I will hold steroids. She is normotensive with normal glucose there is no evidence of adrenal insufficiency. 07/17/2025: Currently patient is on Solu-Medrol 10 mg IV q.day but is not tolerating PO. Calcium today is 8.6 with albumin of 2.7. Plan: I will place the patient on prednisone 10 mg a day starting on 07/18/2025. 07/18/2025: Patient continues to improve. Plan: Continue prednisone 10 mg a day. Patient will follow-up with her admitting supervisor at [facility]. Subjective Date/time seen: 07/18/25 10:05 Interval history: 07/10/2025: This is a new pulmonary consult for acute on chronic hypercarbic respiratory failure. 75-year-old with a history of chronic mosaic attenuation since 2013 and since with bilateral upper lobe septal thickening with nodular infiltrates since 12/21/24 With biopsy 06/12/2025 with noncaseating granulomas in scattered multinucleated giant cells, pulmonary hypertension, rheumatoid arthritis, polymyalgia rheumatica, CAD with CABG and mitral valve repair 02/27/2014, anemia, hyperlipidemia, hypertension, GERD, paroxysmal atrial fibrillation on rivaroxaban, PMR, TIA, dementia, cervical stenosis s/p posterior cervical decompression with fusion of C2-C6 at [facility] on 06/26/25. Regarding her chronic lung disease: CT scan 12/21/2024 with increased upper lobe nodular infiltrates and reticulations compared to 11/20/2024. Unchanged lower lobe mosaic attenuation. 11/20/22 to 11/24/22 she was hospitalized for pneumonia and hypoxemic respiratory failure.? CT angiogram 11/20/2022 demonstrated no pulmonary embolism, diffuse mosaic attenuation in all lung ruvalcaba which was present on CT angiogram from 08/26/2022, CT abdomen on 07/09/2022, CTA on 06/26/2019, 12/21/2017 and mosiac attenuation had increased from 11/30/2013. Reports of high resolution CT scan and 04/18/2010 demonstrated improved infiltrates and mosaic attenuation. On 06/12/2025 patient had a bronchoscopy at [facility]. This was performed for CT scan with numerous upper lobe nodules and concern for sarcoidosis. I have pathology reports from BAL and right upper lobe biopsies which demonstrated few noncaseating granulomas with scattered clusters of multinucleated giant cells special stains were negative for AFB and GMS. BAL was negative for malignancy.: Right upper lobe BAL: Side is pins and cell block: Negative for malignancy. I spoke to the . Patient was recently admitted to [facility] for 26 days. She was discharged to [facility] on 07/04/2025. During this hospitalization she had the above-mentioned cervical neck operation. In addition she had an abnormal CT scan with upper lobe infiltrates and high calcium levels. Patient was seen by the Pulmonary team and she underwent biopsy. After the biopsy the Pulmonary team told the that she had sarcoid and that she required prednisone 10 mg a day to control her calcium. The says that the patient never had respiratory distress but did have high carbon dioxide and she was transferred to the ICU for few days and required BiPAP mask treatment. After a few days she was transferred out of the ICU and did not wear the BiPAP any longer. The patient was discharged to [facility] on 2 L nasal cannula and the family was not told that she needed a BiPAP machine. The patient was supposed to be on prednisone 10 mg a day. On 06/26/2025 the patient had a posterior cervical decompression with fusion of C2-C6 at [facility]. 07/07/2025: Patient presented to the emergency room after a fall on blood thinners. Blood pressure 98/53, heart rate 86, respirations 26, room air saturations 100%. She was reported as somnolent. White blood cell count 8.5, creatinine 0.86, COVID influenza RSV RT PCR assay negative. Urinalysis demonstrated 3+ leukocyte esterase, positive nitrates, 4+ bacteria, greater than [address] scan of the chest showed bilateral right upper lobe greater than left upper lobe homogeneous reticulations with nodular infiltrates, small bilateral pleural effusions left greater than right, no change in her upper lobe or lower lobe mosaic attenuation from 12/21/2024. Patient was treated with ceftriaxone, azithromycin and IV Lasix. Her Xarelto was held. 07/08/2025: Patient was put on 2 L nasal cannula saturations 91-93%. 07/09/2025 patient's urine demonstrated pansensitive E coli. 07/10/2025: Patient had altered mental status and was more somnolent and an ABG on 2 L nasal cannula 7.32/77.7/105. White blood cell count was 8.9, creatinine was 0.63. BNP was 3860, CRP was 2.6, procalcitonin was 0.1. Patient was empirically started on Rate of 14, BiPAP 15/5 and then had hypoxia and her settings were changed to a rate of 14, 18/8 and 70% FiO2. When I enter the room the patient was on BiPAP rate of 14, breathing 20 1 times a minute, pressures 18/8 with tidal volumes 375-425, minute ventilation 7.1, inspiratory time 0.8, rise of 5 and 70% FiO2 with 100% saturations. Patient would arouse to loud verbal commands, deep pain in all 4 extremities she would withdraw but she would not say her name. She would mumble but not follow any verbal commands. Patient transferred to ICU, placed on noninvasive ventilation with the AVAPS mode, required norepinephrine. patient slowly improved over the next 10 days with broad-spectrum antibiotics, steroids, NG suction for ileus. Last use of noninvasive ventilation 07/13/2025. 07/17/2025: The patient is awake and alert. She tells me she has no rest shortness of breath. She has not been out of bed. With activity in bed she has no dyspnea on exertion. She denies cough, phlegm or hemoptysis. She has diarrhea 3 to 4 times a day and is tolerating soft diet. She Had a fever yesterday at 1:00 p.m.. When I enter the room she was on 2 L nasal cannula saturations 97%. I decreased her room air and after 11 minutes her saturations were 90-91%. White blood cell count 10.5, creatinine 0.87. BNP is improved from 3860 on 07/10/2025 to 3220. CRP has improved from 1.6 on 07/11/2025 does less than 0.5 today. Procalcitonin remains 0.1 on 07/14/2025 to 0.1 today. Her weight is 73.4 kg. Cumulative she is -5.9 L since admission. ABG on room air was 7.39/48/54. 07/18/2025: Patient tells me she is breathing normally. She denies fever, chills, rigors, cough, phlegm or hemoptysis. She got out of bed yesterday. She is afebrile. Room air saturations 93%. White blood cell count 9.3, creatinine 0.78, yesterday she was positive 374 mL and cumulative she is -6.7 L since admission. Patient had an overnight oximetry on 2 L with recording duration of 7 hours and 12 minutes, average saturation 94%, low saturation 84%, time with saturation less than or equal to 88% was 3 minutes, oxygen desaturation index 4.6. DATA: 07/17/25: overnight oximetry on 2 L with recording duration of 7 hours and 12 minutes, average saturation 94%, low saturation 84%, time with saturation less than or equal to 88% was 3 minutes, oxygen desaturation index 4.6. 07/11/25: Echo Summary 1. Definity contrast administered improved wall motion interpretation. 2. Left ventricular chamber dimension is normal. 3. Left ventricular systolic function is normal, estimated at 65-70. 4. There is moderate concentric increased left ventricular wall thickness. 5. The left ventricular diastolic function is abnormal. 6. E/e' 26 is significantly elevated. 7. Right ventricular systolic function is reduced based on an abnormal TAPSE 1.4 cm. 8. Left atrial chamber dimension is mildly enlarged. 9. There is moderate aortic valve sclerosis. 10. The mitral valve has a moderately calcified annulus. 11. There is trace mitral valve regurgitation. 12. There is moderate tricuspid valve regurgitation. 13. Severe pulmonary hypertension, estimated pulmonary arterial systolic pressure is 60 mmHg. 14. There is trace pulmonic regurgitation. Left Ventricle E/e' 26 is significantly elevated. Left ventricular chamber dimension is normal. Left ventricular systolic function is normal, estimated at 65-70. There is moderate concentric increased left ventricular wall thickness. The left ventricular diastolic function is abnormal. Definity contrast administered improved wall motion interpretation. Right Ventricle Right ventricular chamber dimension is not well visualized. Right ventricular systolic function is reduced based on an abnormal TAPSE 1.4 cm. Right Atria Right atrial chamber dimension is normal. 07/07/25: EXAMINATION: CT chest abdomen pelvis w con INDICATION: Fall. COMPARISON: Chest CT 12/21/2024 FINDINGS: CHEST CT: The lungs demonstrate smooth septal thickening. There are airspace opacities and nodules in the upper lobes. There are airspace opacities in left lower lobe. There is mild atelectasis in right lower lobe. A calcified right lung nodule is consistent with old granulomatous disease. There are small pleural effusions. The heart size is normal. There are changes of mitral valve replacement. There are coronary artery calcifications. No pericardial effusion. There is a total right shoulder arthroplasty. There are changes of anterior fusion procedure in cervical spine. There is moderate thoracic spondylosis. There is mild chronic anterior wedging of multiple vertebral bodies. ABDOMEN/PELVIS CT: The liver, gallbladder, spleen, pancreas, and adrenal glands are normal. There is cortical thinning of the kidneys. There is a 12 mm cyst in left kidney. There is wall thickening of the rectosigmoid. The appendix is normal. There are no dilated loops of bowel. There are no pathologically enlarged lymph nodes. There is no free intraperitoneal fluid. There is a benign bone island in the right femur. There is severe thoracic spondylosis. IMPRESSION: 1. Diffuse lung disease, likely a combination of pneumonia in the upper lobes and left lower lobe and mild pulmonary edema. 2. Small pleural effusions. 3. Colitis involving the rectosigmoid. 06/12/2025: Right upper lobe BAL: Side is pins and cell block: Negative for malignancy. Clinical Diagnosis and history. This is a 75-year-old woman with a history of COPD, coronary artery disease, chronic anemia who presented with neck pain and generalized weakness. CT chest numerous upper lobe nodules, concerning for sarcoidosis. 06/12/2025 lung, right upper lobe, biopsy: Few noncaseating granulomas and multinucleated giant cells. Microscopic description: Microscopic evaluation shows scant fragments of lung and bronchial tissue with few noncaseating granulomas and scattered clusters of multinucleated giant cells. Special stains for AFB and GMS are performed and are negative for acid-fast bacilli and fungal organisms, respectively. The staining controls are appropriately reactive. 12/21/24: EXAMINATION: CTA chest PE protocol INDICATION: Shortness of breath and hypoxia COMPARISON: 11/20/2022 and 08/26/2022 FINDINGS/OBSERVATIONS: PULMONARY ARTERIES: No filling defect is identified within the main or proximal pulmonary artery. The main pulmonary artery is not enlarged. THORACIC AORTA: No aneurysmal dilatation or dissection is present. The great vessels are intact LUNGS: Patchy groundglass opacification detected bilaterally, with a bilateral upper lobe distribution. MEDIASTINUM: No morphologically suspicious or pathologically enlarged lymph nodes are identified within the mediastinum or bilateral axilla. BONES OF THE CHEST: No acute fracture. No significant degenerative disease. No lytic or blastic lesions. Sternal wires are present. HEART: The heart is of normal size, without pericardial effusion. IMPRESSION: No pulmonary embolus. No thoracic aortic dissection. Patchy groundglass opacification with a bilateral upper lobe distribution. 01/07/2023: This is a pulmonary function test with pre and post-bronchodilator spirometry, plethysmography and diffusing capacity. The test was performed and results interpreted in accordance with the 2019 and 2005 ATS/ERS Task Force guidelines respectively using the Global Lung Function Initiative-2012 reference equations. Patient demonstrated good effort and cooperation. Reproducibility criteria were met. The quality of the pre bronchodilator spirometry maneuver was Grade A and post bronchodilator spirometry maneuver was Grade A. Findings: Spirometry: There is decreased maximal expiratory airflow at low lung volumes with concave expiratory flow tracing. The contour the inspiratory flow tracing is normal. The pre bronchodilator FVC was 1.09 L, 40% predicted. The pre bronchodilator FEV1 is 0.74 L, 35% predicted. The pre bronchodilator FEV1: FVC ratio is 68%. The post bronchodilator FVC is 1.12 L, representing a 2% increase. The post bronchodilator FEV1 is 0.74 L, representing is no change. The post bronchodilator FVC: FVC ratio 67%. Plethysmography: The total lung capacity is 3.22 L, 66% predicted. The functional residual capacity is 2.18 L, 78% predicted. The residual volume is 2.07 L, 97% predicted. Diffusing capacity: The diffusing capacity unadjusted for hemoglobin and carboxyhemoglobin is 9.3, 46% predicted. The diffusing capacity adjusted for alveolar volume is 4.47, 103% predicted. Impression: There is a combined obstructive and restrictive ventilatory abnormality. There are no guidelines to assign the severity of obstruction and restriction with a combined abnormality. In my opinion, given the moderately concave expiratory flow tracing and normal FEV1: FVC ratio and moderate restrictive abnormality I would state there is a mild obstructive abnormality and a moderate restrictive abnormality resulting in a severely decreased FEV1. There is no significant improvement after inhaling a single dose of albuterol. The diffusing capacity unadjusted for hemoglobin and carboxyhemoglobin is moderately decreased and normalizes when adjusted for alveolar volume. There are no prior studies for comparison 11/24/2022 Home O2 assessment - Patient requires no oxygen at rest and 4 with exercise. She had a negative PATRICIA panel in 2021. Echo 11/21/22 ? Summary 1. Complete two-dimensional, color flow and Doppler transthoracic echocardiogram is performed. 2. Left ventricular chamber dimension is normal. 3. Left ventricular systolic function is normal, estimated at 60-65%. 4. There is moderate concentric increased left ventricular wall thickness. 5. The left ventricular diastolic function is abnormal. 6. E/e' 28 is elevated. 7. Left atrial chamber dimension is moderately enlarged. 8. There is mild aortic valve sclerosis. 9. The mitral valve has mildly calcified leaflets and moderately calcified annulus. 10. There is trace mitral valve regurgitation. 11. There is mild tricuspid valve regurgitation. 12. Moderate pulmonary hypertension, estimated pulmonary arterial systolic pressure is 59 mmHg. 13. There is trace pulmonic regurgitation. 14. Dilated inferior vena cava with >50% collapse upon inspiration consistent with elevated right atrial pressure, 10 mmHg. 11/20/2022: EXAMINATION: CTA chest PE protocol INDICATION: Dyspnea. Recently treated for pneumonia. COMPARISON: 11/20/2022 2 view chest 08/26/2022 CT pulmonary scan FINDINGS: There is diagnostic contrast enhancement of the pulmonary arteries and no evidence of pulmonary embolism. There is old pulmonary granulomatous disease. Status post sternotomy and mitral valve replacement. Normal heart size. No thoracic aortic aneurysm. No hilar or mediastinal mass lesion or lymphadenopathy. There is patchy groundglass densities scattered throughout both lungs which may be due to small airways disease, atelectasis and/or pneumonia. Postoperative change of the lower cervical spine. Degenerative spurring of the thoracic spine. Right glenohumeral arthroplasty. IMPRESSION: No evidence of pulmonary embolus Scattered patchy groundglass infiltrates throughout both lungs which may be due to small airways disease, atelectasis and/or pneumonia 08/26/2022: EXAMINATION: CTA chest PE protocol DATE: 08/26/2022 11:23 INDICATION: Shortness of breath and hypoxia TECHNIQUE: Computed tomography angiography (CTA) of the chest was performed with 100 mL Omnipaque-350 intravenous contrast timed to evaluate the pulmonary arteries. Coronal maximum intensity projection 3D-reconstructions were created by the technologist. The dose-length product (DLP) was 621.73 mGy-cm. Automated exposure control and iterative reconstruction technique were employed. COMPARISON: 06/26/2019 FINDINGS: The pulmonary arteries are well-opacified. No pulmonary embolism is identified. There are airspace opacities of the lung apices. Chronic areas of air-trapping are noted throughout the lungs. No pleural effusion or pneumothorax. There are changes of coronary artery bypass grafting and mitral valve surgery. No pathologically enlarged thoracic lymph nodes are identified. The heart size is normal. There is moderate thoracic spondylosis. IMPRESSION: 1. No pulmonary embolus identified. 2. Minimal airspace opacities of the lung apices, likely infection/inflammation. 06/26/2019:EXAMINATION: CTA CHEST (PULMONARY ART) DATE: 06/26/2019 10:03 INDICATION: Shortness of breath. Hypoxia. Subtherapeutic INR. COMPARISON: 06/24/2019 2 view chest 12/21/2017 CTA chest FINDINGS: There is diagnostic contrast enhancement the pulmonary arteries and no evidence of pulmonary embolism. Normal heart size. Mitral valve replacement and sternotomy are noted. No thoracic aortic aneurysm or dissection. No hilar or mediastinal mass lesion or lymphadenopathy. There is right upper lobe patchy infiltrate. There are couple of areas of left lower lobe tree-in-bud infiltrate. Status post lower anterior cervical spine surgical fusion. There is degenerative disease of the cervical spine and diffuse idiopathic skeletal hyperostosis of the thoracic spine. IMPRESSION: No evidence of pulmonary embolism. Patchy right upper lobe and left lower lobe infiltrates 04/18/2010: CT chest without contrast History: Shortness of breath Technique: 5 mm slices in the axial plane and 1.25 mm high resolution slices. Comparison: CT from 01/24/10 Findings: The groundglass opacities in the lungs have substantially improved. Mild nodularity is present in the periphery of the lungs. The nodules are most numerous in the right middle lobe hand are centrilobular in distribution. The airways are patent. A calcified granuloma is present in the right lower lobe. Right hilar calcified lymph nodes are present. The heart size and aortic caliber are normal. Pulmonary vascularity is normal. No pneumothorax or plural effusions are present. The lymph nodes are subcentimeter. Degenerative changes are present in the cervical and thoracic spine. No interstitial thickeing or architectural distortion is present in the high resolution images. Impression: 1. Substantially improved bilateral airspace opacities. Bronchiolitis which is relatively greatest in the periphery of the right middle lobe. 12/21/2017: EXAMINATION: CTA CHEST (AORTA) NON CORONARY DATE: 12/21/17 INDICATION: Upper back pain. TECHNIQUE: Computed tomographic angiography (CTA) of the chest was performed without and with 100 mL Omnipaque-350 intravenous contrast. Volume-rendered 3D- reconstructions of the aorta and large arteries were constructed by the technologist on a separate workstation. Automated exposure control and iterative reconstruction technique were employed. The dose-length product was 586 mGy-cm. COMPARISON: None. FINDINGS: No mosaic attenuation in the lungs with similar appearance to the pulmonary vasculature in both the more dense and lucent regions of the lung which would favor air trapping and small artery disease over small vessel disease. Calcified nodule in the super segment of the right lower lobe and calcified right hilar lymph node consistent with old granulomatous disease. No pneumonia, pulmonary edema, pleural effusion or pneumothorax. No pulmonary embolism. Heart size is normal. Postoperative changes of prior median sternotomy with both coronary artery bypass grafting and mitral valve repair. No pericardial effusion. Thoracic aorta is normal in caliber with no dissection. No pathologically enlarged thoracic lymphadenopathy. Mild wall thickening the d istal esophagus which could be seen with esophagitis. Anterior spinal fusion with anterior plate and screw fixation at C5-C6. Incompletely visualized right total shoulder arthroplasty. Moderate thoracic spondylosis with stable appearance of mild anterior wedging of several mid-lower thoracic vertebral bodies. IMPRESSION: 1. No acute cardiopulmonary disease or acute osseous abnormality. Specifically no aortic aneurysm or dissection. 2. Mild wall thickening in the distal esophagus which could be seen with esophagitis. 3. Mosaic attenuation in both lungs consistent with small airway disease and mild subsegmental air trapping. 4. Postoperative changes of prior median sternotomy, coronary artery bypass grafting, mitral valve repair, 11/30/2013: CT CHEST HIGH RESOLUTION W/O INDICATION: Shortness of breath, pulmonary hypertension. TECHNIQUE: Spiral CT of the chest was performed without intravenous contrast. Axial, coronal and sagittal images were reviewed. HRCT obtained. The exam was reviewed on 11/30/13. Correlation was made with pulmonary CT same date. FINDINGS: HRCT demonstrates no interlobular septal thickening to suggest interstitial lung disease. Interval improvement in the bilateral groundglass opacities involving all lobes with perihilar distribution, characteristic for pulmonary edema. There are smaller patchy more confluent opacifications in the right infrahilar region. Can't exclude pneumonia for these opacities. Pulmonary arteries are within normal size limits. Tracheobronchial tree is patent. There is no mediastinal, hilar or axillary lymphadenopathy. Again there is small pleural effusions. There is no pneumothorax. Heart normal in size. Upper abdomen is unremarkable. Mild thoracic spondylosis. There are no osteoblastic or osteolytic lesions identified. IMPRESSION: 1. Improving bilateral perihilar opacities, more likely pulmonary edema than infection. 2. Small bilateral pleural effusions, unchanged. 01/24/2010: CT scan of the chest. INDICATION: Shortness of breath TECHNIQUE: Routine contrast enhanced pulmonary CTA COMPARISON: Chest x-ray dated 01/24/10 FINDINGS: No thoracic lymph node enlargement. No pleural or pericardial abnormality's. No endobronchial lesions. Heart size normal. Normal filling of the pulmonary arteries with contrast without evidence for pulmonary embolism. Sequela of prior granulomatous infection noted in the lisa and right lower lobe. Bibasilar dependent atelectasis. Patchy bilateral groundglass opacities are identified. No suspicious pulmonary nodules or masses. IMPRESSION: 1: Patchy bilateral groundglass opacities are identified involving all lobes. Differential diagnosis includes atypical pneumonia (viral pneumonia and PCP) , chronic infiltrative lung disease (bronchiolitis, nonspecific interstitial pneumonitis, DIP ), acute airspace disease (pulmonary edema, hypersensitivity pneumonitis, eosinophilic pneumonia). Less likely considerations include bronchioloalveolar cell carcinoma. 2: No evidence for pulmonary embolism. Review of Systems Review of Systems: ROS unobtainable: Yes unobtainable due to medical condition and unobtainable due to mental status Constitutional: Constitutional: Reports no additional constitutional complaints Eyes: Eyes: Reports no additional eye complaints ENT: Reports system reviewed and no additional complaints, except as documented Cardiovascular: Cardiovascular: Reports no additional cardiovascular complaints Respiratory: Respiratory: Reports no additional respiratory complaints Gastrointestinal: Gastrointestinal: Reports no additional gastrointestinal complaints Musculoskeletal: Musculoskeletal: Reports no additional musculoskeletal complaints Neurologic: Reports system reviewed and no additional complaints, except as documented Psychiatric: Psychiatric: Reports no additional psychiatric complaints Endocrine: Endocrine: Reports no additional endocrine complaints Hematologic/Lymphatic: Hematologic/Lymphatic: Reports no additional hematologic/lymphatic complaints Allergic/Immunologic: Allergic/Immunologic: Reports no additional allergic/immunologic complaints Exam Const: General: comfortable and no acute distress Other: patient with a neck brace on in no respiratory distress. HENMT: Head: normal to inspection Ears: hearing grossly normal bilaterally Eyes: General: appearance normal, both eyes and all related structures Neck: Neck: normal visual inspection Chest: Chest palpation & inspection: normal inspection of the chest Resp: Effort & Inspection: normal respiratory effort and able to speak in complete sentences Auscultation: no crackles, no rales, no rhonchi, no wheezes and lung sounds not diminished Other: Clear to auscultation. Cardio: Jugular venous distension: no JVD GI: Inspection: normal to inspection Skin: General skin exam: normal color Neuro: Other: Patient following commands and conversing normally. Extrem: General: normal to inspection Psych: Appearance: grossly normal Objective Data Vital Signs Vital Signs: Vital Signs - 24 hr 07/17/25 10:23 07/17/25 13:30 07/17/25 20:00 Temperature 36.4 C Pulse Rate 92 Respiratory Rate 18 Blood Pressure 114/51 L Pulse Oximetry 93 Oxygen Delivery Nasal Cannula Room Air Oxygen Flow Rate 2 07/17/25 22:00 07/17/25 22:00 07/17/25 22:10 Temperature 36.3 C L Pulse Rate 80 77 Respiratory Rate 16 Blood Pressure 126/55 L Pulse Oximetry 93 95 Oxygen Delivery Nasal Cannula Oxygen Flow Rate 2 07/18/25 06:00 07/18/25 08:06 Temperature 36.2 C L Pulse Rate 76 72 Respiratory Rate 18 Blood Pressure 129/61 Pulse Oximetry 99 Oxygen Delivery Oxygen Flow Rate Intake/Output Intake/Output: Intake & Output 07/15/25 07/16/25 07/17/25 07/18/25 23:59 23:59 23:59 23:59 Intake Total 1453.4 1325 1310 780 Output Total 2125 951 2451 1700 Balance -671.6 513 -6951 -920 Meds/Results Medications: Active Medications Generic Name Dose Route Start Last Admin Trade Name Rodq PRN Reason Stop Dose Admin Acetaminophen 650 mg 07/07/25 08:10 07/15/25 13:04 Acetaminophen 325 Mg Tablet PO 650 mg Q4H PRN Administration Mild Pain (1-3) or Fever Acetaminophen 650 mg 07/10/25 17:36 07/10/25 21:18 Acetaminophen 650 Mg Suppository RECTAL 650 mg Q6H PRN Administration Fever Dextrose 12.5 gm 07/10/25 15:08 Dextrose 50% 25 Gm/50 Ml Syringe IV PUSH PRN PRN Hypoglycemia Protocol Glucagon 1 mg 07/10/25 15:08 Glucagon For Inj 1 Mg Vial IM PRN PRN Hypoglycemia Protocol Glucose 15 gm 07/10/25 15:08 Glucose Oral Gel 15 Gm Of Glucse In 37.5 Gm Tube PO PRN PRN Hypoglycemia Protocol Dextrose 1,000 mls @ 100 mls/hr 07/10/25 15:08 Dextrose 5% 1,000 Ml IVPB PRN PRN Hypoglycemia Protocol Insulin Aspart 3 - 6 units 07/10/25 17:00 07/18/25 08:30 Insulin Aspart (*Bkc) 100 Units/Ml SUB-Q Not Given Q4HR IVONE Protocol Insulin Glargine 10 units 07/12/25 09:00 07/18/25 08:20 Insulin Glargine (*Bkc) 100 Units/Ml SUB-Q 10 units DAILY IVONE Administration Ipratropium [place] 0.5 mg 07/14/25 08:25 Ipratropium Br 0.02% Inh Soln 0.5 Mg/2.5 Ml Vial INHALATION Q6HRT PRN Wheezing Levalbuterol HCl 0.63 mg 07/14/25 08:25 Levalbuterol Neb 1.25 Mg/3 Ml INHALATION Q6HRT PRN Wheezing Loperamide HCl 2 mg 07/07/25 14:57 Loperamide Hcl 2 Mg Capsule PO PRN PRN Diarrhea Metoprolol Tartrate 5 mg 07/15/25 11:44 Metoprolol Tartrate Inj 5 Mg/5 Ml Vial IV PUSH Q3H PRN HR > 120 sustained Pantoprazole Sodium 40 mg 07/18/25 09:00 07/18/25 08:07 Pantoprazole 40 Mg Tablet PO 40 mg QAM IVONE Administration Potassium Chloride 20 meq 07/18/25 09:00 07/18/25 08:09 Potassium Chloride 20 Meq Packet (For Liquid) PO 20 meq DAILY IVONE Administration Pramipexole Dihydrochloride 0.5 mg 07/07/25 21:00 07/17/25 21:59 Pramipexole 0.5 Mg Tablet PO 0.5 mg HS IVONE Administration Pravastatin Sodium 10 mg 07/08/25 09:00 07/18/25 08:07 Pravastatin Sodium 10 Mg Tablet BY MOUTH 10 mg DAILY IVONE Administration Prednisone 10 mg 07/18/25 08:00 07/18/25 08:18 Prednisone 10 Mg Tablet PO 10 mg DAILY@0800 IVONE Administration Rivaroxaban 20 mg 07/17/25 17:00 07/17/25 16:29 Rivaroxaban 20 Mg Tablet PO 20 mg DAILY@1700 IVONE Administration Sodium Chloride 20 ml 07/10/25 20:33 07/18/25 06:09 Central Line Flush IV PUSH 20 ml PRN PRN Administration after blood draws Sodium Chloride 10 ml 07/13/25 14:00 07/18/25 06:10 Central Line Flush IV PUSH 10 ml Q8HR IVONE Administration Sodium Chloride 10 ml 07/13/25 08:09 Central Line Flush IV PUSH PRN PRN with TPN bag changes Sodium Chloride 20 ml 07/13/25 08:09 Central Line Flush IV PUSH PRN PRN after blood draws Sotalol HCl 80 mg 07/16/25 21:00 07/18/25 08:06 Sotalol Hcl 80 Mg Tablet PO 80 mg Q12HR IVONE Administration Trimethobenzamide HCl 200 mg 07/07/25 14:56 07/12/25 04:26 Trimethobenzamide Hcl 200 Mg/2 Ml Vial IM 200 mg Q6H PRN Administration Nausea And Vomiting Radiology Results: ITS Impressions Cervical Spine CT 07/07/25 06:30 IMPRESSION: HEAD: 1. No acute intracranial findings. 2. Bilateral mastoiditis. C-SPINE: 1. No acute fracture. 2. Ill-defined fluid and postoperative changes posterior to upper cervical spine. 3. Extensive bilateral upper lung airspace disease, and left pleural effusion. Chest/Abdomen/Pelvis CT 07/07/25 07:13 IMPRESSION: 1. Diffuse lung disease, likely a combination of pneumonia in the upper lobes and left lower lobe and mild pulmonary edema. 2. Small pleural effusions. 3. Colitis involving the rectosigmoid. Head CT 07/10/25 15:36 Impression: 1.No acute intracranial abnormality. Abdomen/Pelvis CT 07/13/25 13:46 IMPRESSION: 1. Increased size of pleural effusions which are small to moderate compared to small on the previous exam. Bibasilar atelectatic changes with possible developing consolidation and/or vascular congestion. 2. Fluid and gas dilated rectosigmoid region with findings suggestive of mild colitis and diarrhea process. 3. Extraperitoneal findings of uncertain significance possibly associated with the air foci associated with injections. Correlate clinically to exclude active inflammatory/infectious process in the extra peritoneal soft tissues. NG Tube Placement 07/13/25 14:43 IMPRESSION: 1. Fluoroscopy utilized during placement of a nasogastric tube with distal tip in proximal side port in the body the stomach. Abdomen X-Ray 07/17/25 08:30 IMPRESSION: Unchanged exam compared to yesterday. Chest X-Ray 07/18/25 08:11 Impression: CHF. Superimposed probable pneumonia. The findings appear slightly progressed compared to the previous exam Labs Labs: Laboratory Results - last 24 hr 07/17/25 07/17/25 07/17/25 11:39 11:42 16:18 WBC RBC Hgb Hct MCV MCH MCHC RDW Plt Count MPV Puncture Site Right radial ABG pH 7.393 ABG pCO2 48.3 H ABG pO2 53.6 L ABG PO2/FiO2 Ratio 2.55 ABG HCO3 28.8 H ABG O2 Saturation 87.3 L* ABG O2 Content 12.2 L ABG Base Excess 3.3 A-a Gradient 38.3 Oxyhemoglobin 85.4 L* Carboxyhemoglobin 1.7 Methemoglobin 0.3 Reduced Hemoglobin 12.6 H Total Hemoglobin 10.1 L O2 Delivery Device Room air O2 Liters/Min Not Reportable FiO2 21 Sodium Potassium Chloride Carbon Dioxide Anion Gap BUN Creatinine Estim Creat Clear Calc Estimated GFR Glucose POC Capillary Glucose 206 H 227 H Calcium Magnesium Total Bilirubin AST ALT Alkaline Phosphatase Total Protein Albumin 07/17/25 07/18/25 07/18/25 21:35 03:01 06:23 WBC 9.3 RBC 3.18 L Hgb 9.0 L Hct 29.8 L MCV 93.7 MCH 28.3 MCHC 30.2 L RDW 18.6 H Plt Count 185 MPV 11.2 H Puncture Site ABG pH ABG pCO2 ABG pO2 ABG PO2/FiO2 Ratio ABG HCO3 ABG O2 Saturation ABG O2 Content ABG Base Excess A-a Gradient Oxyhemoglobin Carboxyhemoglobin Methemoglobin Reduced Hemoglobin Total Hemoglobin O2 Delivery Device O2 Liters/Min FiO2 Sodium 132 L Potassium 2.6 L* Chloride 100 Carbon Dioxide 30 Anion Gap 2 L BUN 19 H Creatinine 0.78 Estim Creat Clear Calc 51 Estimated GFR > 60 Glucose 111 H POC Capillary Glucose 273 H 126 H Calcium 8.0 L Magnesium 2.0 Total Bilirubin 0.3 AST 28 ALT 21 Alkaline Phosphatase 155 H Total Protein 4.9 L Albumin 2.6 L 07/18/25 07:07 WBC RBC Hgb Hct MCV MCH MCHC RDW Plt Count MPV Puncture Site ABG pH ABG pCO2 ABG pO2 ABG PO2/FiO2 Ratio ABG HCO3 ABG O2 Saturation ABG O2 Content ABG Base Excess A-a Gradient Oxyhemoglobin Carboxyhemoglobin Methemoglobin Reduced Hemoglobin Total Hemoglobin O2 Delivery Device O2 Liters/Min FiO2 Sodium Potassium Chloride Carbon Dioxide Anion Gap BUN Creatinine Estim Creat Clear Calc Estimated GFR Glucose POC Capillary Glucose 119 H Calcium Magnesium Total Bilirubin AST ALT Alkaline Phosphatase Total Protein Albumin
[2025-07-18] MEDS: LOPERAMIDE HCL 2 MG CAPSULE 4 MG PO (13:30)
[2025-07-18 13:45] VITALS: BP 120/53; PULSE 76; RESP 16; TEMP 36.4; O2SAT 93
[2025-07-18 14:05] LABS: Potassium 3.6 mmol/L (3.4-5.0)
[2025-07-18] MEDS: RIVAROXABAN 20 MG TABLET PO (16:19)
[2025-07-18] MEDS: INSULIN ASPART (*BKC) 100 UNITS/ML SUB-Q ×2 (17:19→21:33)
[2025-07-18 20:16] VITALS: BP 142/70; PULSE 91; RESP 18; TEMP 36.4; O2SAT 91
[2025-07-18] MEDS: PRAMIPEXOLE 0.5 MG TABLET PO (21:33)
[2025-07-18 21:42] VITALS: O2SAT 91
[2025-07-19] MEDS: LOPERAMIDE HCL 2 MG CAPSULE PO ×3 (00:18→17:44)
[2025-07-19 04:14] LABS: Hematocrit 31.1 % (37.0-47.0); Hemoglobin 9.4 g/dL (12.0-15.0); Mean Corpuscular HGB Conc 30.2 g/dl (32-36); Mean Corpuscular Hemoglobin 28.1 pg (26-34); Mean Corpuscular Volume 92.8 fl (80-100); Platelet Count Result 243 k/mm3 (150-375); Red Blood Count 3.35 M/mm3 (4.2-5.4); White Blood Count 11.9 K/mm3 (4.5-10.0)
[2025-07-19 04:30] LABS: Alanine Aminotransferase 24 U/L (6-35); Albumin Level 2.9 g/dL (3.5-5.1); Alkaline Phosphatase 168 U/L (38-126); Anion Gap 2 mmol/L (4-12); Aspartate Amino Transferase 25 U/L (14-36); Bilirubin,Total 0.5 mg/dL (0.2-1.3); Blood Urea Nitrogen 14 mg/dL (7-17); Calcium 8.3 mg/dL (8.4-10.2); Carbon Dioxide 28 mmol/L (22-30); Chloride 103 mmol/L (98-107); Estimated CRCL calculation 54 ml/min; Estimated Glomerular Filt Rate > 60; Glucose 102 mg/dL (65-110); Magnesium 1.9 mg/dL (1.6-2.3); Potassium 3.4 mmol/L (3.4-5.0); Sodium 133 mmol/L (137-145); Total Protein 5.3 g/dL (6.3-8.2)
[2025-07-19] MEDS: CENTRAL LINE FLUSH 10 ML IV PUSH ×3 (05:11→20:56)
[2025-07-19 05:22] VITALS: BP 141/83; PULSE 87; RESP 16; TEMP 36.2; O2SAT 94
[2025-07-19 08:00] VITALS: O2SAT 96
[2025-07-19] MEDS: POTASSIUM CHLORIDE 20 MEQ PACKET (FOR LIQUID) PO (09:26)
[2025-07-19] MEDS: PANTOPRAZOLE 40 MG TABLET PO (09:26)
[2025-07-19] MEDS: INSULIN GLARGINE (*BKC) 100 UNITS/ML 10 UNITS SUB-Q (09:26)
[2025-07-19] MEDS: PRAVASTATIN SODIUM 10 MG TABLET BY MOUTH (09:26)
[2025-07-19 09:30] VITALS: PULSE 84
[2025-07-19] MEDS: SOTALOL HCL 80 MG TABLET PO ×2 (09:30→20:47)
--- NOTE | 2025-07-19 10:52 | PCNFU ---
Nutrition Follow-Up Complete: Increased protein energy needs related to wound healing as evidenced by stage 3 pressure injury Intakes >75% - Slow progress with goal. Continue with goal Goal: Pt current nutrition is Soft & bite size L6. Nutrition recommendation: Continue soft & bite size regular diet. Oral nutrition supplements: Ensure Plus HP BID (350 kcal, 20 g protein) and Jamar BID for wounds (90 kcal, 2.5 g protein, arginine and glutamine for wound support) Last recorded weight is 73.2 kg. Bowel Motility: +2 BM 07/19, +9 BM 07/28. Diarrhea, C-diff- Labs Reviewed: Hgb 9.4, Hct 31.3, Alb 2.9, Na 133 Meds Noted: Lantus, predisone, protonix Skin: Stage 3 pressure injury sacrum Additional Notes: Ileus resolved and diet advanced 07/17. Toilerating soft diet with intakes 10-85% last 48 hours. 10% breakfast. Will add original supplements. Monitoring intakes, weights, labs, supplement tolerance, skin, plan of care Follow up in 5 days
[2025-07-19 13:00] LABS: NT Pro B Type Natriuretic Pept 3240 pg/mL (19.9-100)
[2025-07-19] MEDS: ALTEPLASE 2 MG VIAL (CATHFLO) IV PUSH (13:51)
[2025-07-19 14:00] VITALS: BP 128/67; PULSE 72; RESP 16; TEMP 36.2; O2SAT 99
--- NOTE | 2025-07-19 17:02 | P.PNIM_ITS ---
Progress Note: A&P Assessment and Plan (1) Sarcoid: Code(s): D86.9 - Sarcoidosis, unspecified Status: Acute (2) Ileus: Code(s): K56.7 - Ileus, unspecified Status: Acute Plan Debility -PT OT consulted -patient may benefit from inpatient rehab -discussed with case management Ileus, resolved -KUB concerning for worsening dilated loops of bowel -appreciate GI consult: Advanced diet as tolerated -appreciate general surgical consultation: Advanced diet as tolerated -abdominal CT scan with contrast 07/13: Including dilated rectosigmoid concerning for colitis, no SBO -NG tube placed by IR 07/13, now removed -advancing to soft foods 07/17 Multifocal atrial tachycardia, improved Paroxysmal atrial fibrillation, improved -patient has paroxysmal atrial fibrillation on Xarelto and rate control with sotalol -currently patient appears to have atrial tachycardia heart rate fluctuating from 90 to 140s -appreciate Cardiology consultation Dr. Sorensen: Continue sotalol, outpatient referral for EP ablation -history of paroxysmal atrial fibrillation -goal K>4, K 3.2 giving 40mEq x2 -goal Mg>2, mg 1.7 giving 2g mag sulfate Acute hypoxic respiratory failure Community-acquired pneumonia Sarcoidosis -patient on heated high-flow oxygen changed to nasal cannula 3L, not on bipap -appreciate pulmonology management -antibiotics: Completed empirically 5 days of antibiotics vancomycin/cefepime, doxycycline -monitor fever curve, Tmax 37.7 yesterday. procalcitonin negative 07/17 -MRSA nares positive -steroids: solu-medrol to home dose prednisone 10mg daily Chronic conditions -type 2 diabetes: Monitor glucose, resuming glargine 10 units daily, sliding scale insulin -polymyalgia rheumatica -pulmonary hypertension, HFpEF: resume home lasix 40mg PO daily, BNP 3220, will monitor blood pressure closely -recent c-spine surgery. Posterior cervical decompression and fusion C2-6 at [facility] on 06/26/25 keep c-collar on for [address] Lowry. C-collar in place. -hyperlipidemia: Pravastatin -RLS: Mirapex, Robaxin -essential hypertension: holding Losartan for low BP, on sotalol -supplements: Vitamin D3 Diet: Advanced to soft food DVT prophylaxis: SCDs, resume home xarelto GI prophylaxis: Protonix Code status: Full code Disposition: plan for discharge to rehab Subjective Date/time seen: 07/19/25 17:02 Interval history: Patient still has episodes of diarrhea. Given 1 dose of Imodium. Replenish potassium. Review of Systems Review of Systems: 10 point ROS complete, negative other th an what is specified in HPI. All systems reviewed & are unremarkable except as noted in HPI and below ROS unobtainable: Yes unobtainable due to medical condition and unobtainable due to mental status Exam Narrative: - GENERAL: Pleasant chronically ill-lior earing elderly woman in no acute distress - EYES: EOMI. Anicteric. - HENT: Moist mucous membranes. C-colla r in place - LUNGS: Clear to auscultation on 2L O2 - CARDIOVASCULAR: Regular rate and rhyt hm - ABDOMEN: Soft, nondistended, nontender , bowel sounds present - EXTREMITIES: No edema. Peripheral puls es 2+. eschar wound on left forearm - NEUROLOGIC: No focal neurological defi cits. CN II-XII grossly intact. - PSYCHIATRIC: Awake, Alert and oriented x 3. Appropriate mood and affect. Objective Data Vital Signs Vital Signs: Vital Signs - 24 hr 07/18/25 20:00 07/18/25 20:16 07/18/25 21:42 Temperature 97.5 F L Pulse Rate 91 Respiratory Rate 18 Blood Pressure 142/70 H Pulse Oximetry 91 91 Oxygen Delivery Room Air Room Air Oxygen Flow Rate 07/19/25 05:22 07/19/25 08:00 07/19/25 09:30 Temperature 97.1 F L Pulse Rate 87 84 Respiratory Rate 16 Blood Pressure 141/83 H Pulse Oximetry 94 96 Oxygen Delivery Nasal Cannula Oxygen Flow Rate 2 07/19/25 14:00 Temperature 97.2 F L Pulse Rate 72 Respiratory Rate 16 Blood Pressure 128/67 Pulse Oximetry 99 Oxygen Delivery Oxygen Flow Rate Intake/Output Intake/Output: Intake & Output 07/16/25 07/17/25 07/18/25 07/19/25 23:59 23:59 23:59 23:59 Intake Total 1325 1310 1770 900 Output Total 951 2451 1700 600 Balance 374 -1141 70 300 Meds/Results Medications: Active Medications Generic Name Dose Route Start Last Admin Trade Name Freq PRN Reason Stop Dose Admin Acetaminophen 650 mg 07/07/25 08:10 07/15/25 13:04 Acetaminophen 325 Mg Tablet PO 650 mg Q4H PRN Administration Mild Pain (1-3) or Fever Acetaminophen 650 mg 07/10/25 17:36 07/10/25 21:18 Acetaminophen 650 Mg Suppository RECTAL 650 mg Q6H PRN Administration Fever Alteplase, Recombinant 2 mg 07/19/25 13:00 07/19/25 13:51 Alteplase 2 Mg Vial (Cathflo) IV PUSH 2 mg ONCE PRN Administration Line Occlusion Dextrose 12.5 gm 07/10/25 15:08 Dextrose 50% 25 Gm/50 Ml Syringe IV PUSH PRN PRN Hypoglycemia Protocol Glucagon 1 mg 07/10/25 15:08 Glucagon For Inj 1 Mg Vial IM PRN PRN Hypoglycemia Protocol Glucose 15 gm 07/10/25 15:08 Glucose Oral Gel 15 Gm Of Glucse In 37.5 Gm Tube PO PRN PRN Hypoglycemia Protocol Dextrose 1,000 mls @ 100 mls/hr 07/10/25 15:08 Dextrose 5% 1,000 Ml IVPB PRN PRN Hypoglycemia Protocol Insulin Aspart 3 - 6 units 07/10/25 17:00 07/19/25 16:58 Insulin Aspart (*Bkc) 100 Units/Ml SUB-Q Not Given Q4HR IVONE Protocol Insulin Glargine 10 units 07/12/25 09:00 07/19/25 09:26 Insulin Glargine (*Bkc) 100 Units/Ml SUB-Q 10 units DAILY IVONE Administration Ipratropium [place] 0.5 mg 07/14/25 08:25 Ipratropium Br 0.02% Inh Soln 0.5 Mg/2.5 Ml Vial INHALATION Q6HRT PRN Wheezing Levalbuterol HCl 0.63 mg 07/14/25 08:25 Levalbuterol Neb 1.25 Mg/3 Ml INHALATION Q6HRT PRN Wheezing Loperamide HCl 2 mg 07/07/25 14:57 07/19/25 06:45 Loperamide Hcl 2 Mg Capsule PO 2 mg PRN PRN Administration Diarrhea Metoprolol Tartrate 5 mg 07/15/25 11:44 Metoprolol Tartrate Inj 5 Mg/5 Ml Vial IV PUSH Q3H PRN HR > 120 sustained Pantoprazole Sodium 40 mg 07/18/25 09:00 07/19/25 09:26 Pantoprazole 40 Mg Tablet PO 40 mg QAM IVONE Administration Potassium Chloride 20 meq 07/18/25 09:00 07/19/25 09:26 Potassium Chloride 20 Meq Packet (For Liquid) PO 20 meq DAILY IVONE Administration Pramipexole Dihydrochloride 0.5 mg 07/07/25 21:00 07/18/25 21:33 Pramipexole 0.5 Mg Tablet PO 0.5 mg HS IVONE Administration Pravastatin Sodium 10 mg 07/08/25 09:00 07/19/25 09:26 Pravastatin Sodium 10 Mg Tablet BY MOUTH 10 mg DAILY IVONE Administration Prednisone 10 mg 07/18/25 08:00 07/19/25 09:26 Prednisone 10 Mg Tablet PO 10 mg DAILY@0800 IVONE Administration Rivaroxaban 20 mg 07/17/25 17:00 07/18/25 16:19 Rivaroxaban 20 Mg Tablet PO 20 mg DAILY@1700 IVONE Administration Sodium Chloride 20 ml 07/10/25 20:33 07/18/25 06:09 Central Line Flush IV PUSH 20 ml PRN PRN Administration after blood draws Sodium Chloride 10 ml 07/13/25 14:00 07/19/25 13:51 Central Line Flush IV PUSH 10 ml Q8HR IVONE Administration Sodium Chloride 10 ml 07/13/25 08:09 Central Line Flush IV PUSH PRN PRN with TPN bag changes Sodium Chloride 20 ml 07/13/25 08:09 Central Line Flush IV PUSH PRN PRN after blood draws Sotalol HCl 80 mg 07/16/25 21:00 07/19/25 09:30 Sotalol Hcl 80 Mg Tablet PO 80 mg Q12HR IVONE Administration Trimethobenzamide HCl 200 mg 07/07/25 14:56 07/12/25 04:26 Trimethobenzamide Hcl 200 Mg/2 Ml Vial IM 200 mg Q6H PRN Administration Nausea And Vomiting Radiology Results: ITS Impressions Cervical Spine CT 07/07/25 06:30 IMPRESSION: HEAD: 1. No acute intracranial findings. 2. Bilateral mastoiditis. C-SPINE: 1. No acute fracture. 2. Ill-defined fluid and postoperative changes posterior to upper cervical spine. 3. Extensive bilateral upper lung airspace disease, and left pleural effusion. Chest/Abdomen/Pelvis CT 07/07/25 07:13 IMPRESSION: 1. Diffuse lung disease, likely a combination of pneumonia in the upper lobes and left lower lobe and mild pulmonary edema. 2. Small pleural effusions. 3. Colitis involving the rectosigmoid. Head CT 07/10/25 15:36 Impression: 1.No acute intracranial abnormality. Abdomen/Pelvis CT 07/13/25 13:46 IMPRESSION: 1. Increased size of pleural effusions which are small to moderate compared to small on the previous exam. Bibasilar atelectatic changes with possible developing consolidation and/or vascular congestion. 2. Fluid and gas dilated rectosigmoid region with findings suggestive of mild colitis and diarrhea process. 3. Extraperitoneal findings of uncertain significance possibly associated with the air foci associated with injections. Correlate clinically to exclude active inflammatory/infectious process in the extra peritoneal soft tissues. NG Tube Placement 07/13/25 14:43 IMPRESSION: 1. Fluoroscopy utilized during placement of a nasogastric tube with distal tip in proximal side port in the body the stomach. Abdomen X-Ray 07/17/25 08:30 IMPRESSION: Unchanged exam compared to yesterday. Chest X-Ray 07/19/25 07:57 IMPRESSION: 1. Persistent interstitial pulmonary edema with left basilar atelectasis and/or airspace disease. 2. Suspect left pleural effusion. 3. Superimposed airspace disease not excluded. Labs Labs: Laboratory Results - last 24 hr 07/18/25 07/19/25 07/19/25 19:24 04:08 07:28 WBC 11.9 H RBC 3.35 L Hgb 9.4 L Hct 31.1 L MCV 92.8 MCH 28.1 MCHC 30.2 L RDW 18.8 H Plt Count 243 MPV 11.2 H Sodium 133 L Potassium 3.4 Chloride 103 Carbon Dioxide 28 Anion Gap 2 L BUN 14 D Creatinine 0.73 Estim Creat Clear Calc 54 Estimated GFR > 60 Glucose 102 POC Capillary Glucose 333 H 119 H Calcium 8.3 L Magnesium 1.9 Total Bilirubin 0.5 AST 25 ALT 24 Alkaline Phosphatase 168 H NT-Pro-B Natriuret Pep Total Protein 5.3 L Albumin 2.9 L 07/19/25 07/19/25 07/19/25 11:37 11:51 16:31 WBC RBC Hgb Hct MCV MCH MCHC RDW Plt Count MPV Sodium Potassium Chloride Carbon Dioxide Anion Gap BUN Creatinine Estim Creat Clear Calc Estimated GFR Glucose POC Capillary Glucose 148 H 197 H Calcium Magnesium Total Bilirubin AST ALT Alkaline Phosphatase NT-Pro-B Natriuret Pep 3240 H Total Protein Albumin Quality VTE Prophylaxis VTE prophylaxis: mechanical ordered Hospitalist MIPS Advance Care Plan I have confirmed that the patient's Advanced Care Plan is present, code status is documented, or surrogate decision maker is listed in patient medical record.: Yes Medication Reconciliation I have utilized all available resources to obtain, update and review the patients current medications (includes all prescriptions, OTC, herbals, cannabis, and nutritional supplements).: Yes
[2025-07-19] MEDS: RIVAROXABAN 20 MG TABLET PO (17:44)
[2025-07-19] MEDS: PRAMIPEXOLE 0.5 MG TABLET PO (20:47)
[2025-07-19 21:53] VITALS: BP 139/62; PULSE 91; RESP 22; TEMP 36.5; O2SAT 98
[2025-07-20 05:52] LABS: Hematocrit 33.3 % (37.0-47.0); Hemoglobin 9.9 g/dL (12.0-15.0); Mean Corpuscular HGB Conc 29.7 g/dl (32-36); Mean Corpuscular Hemoglobin 27.9 pg (26-34); Mean Corpuscular Volume 93.8 fl (80-100); Platelet Count Result 254 k/mm3 (150-375); Red Blood Count 3.55 M/mm3 (4.2-5.4); White Blood Count 11.3 K/mm3 (4.5-10.0)
[2025-07-20 06:00] VITALS: BP 112/79; PULSE 94; RESP 28; TEMP 36.5; O2SAT 90
[2025-07-20 06:05] LABS: Alanine Aminotransferase 21 U/L (6-35); Albumin Level 3.1 g/dL (3.5-5.1); Alkaline Phosphatase 166 U/L (38-126); Anion Gap 2 mmol/L (4-12); Aspartate Amino Transferase 22 U/L (14-36); Bilirubin,Total 0.5 mg/dL (0.2-1.3); Blood Urea Nitrogen 15 mg/dL (7-17); Calcium 8.4 mg/dL (8.4-10.2); Carbon Dioxide 29 mmol/L (22-30); Chloride 102 mmol/L (98-107); Estimated CRCL calculation 53 ml/min; Estimated Glomerular Filt Rate > 60; Glucose 181 mg/dL (65-110); Potassium 3.4 mmol/L (3.4-5.0); Sodium 133 mmol/L (137-145); Total Protein 5.5 g/dL (6.3-8.2)
[2025-07-20 08:00] VITALS: O2SAT 94
[2025-07-20] MEDS: PANTOPRAZOLE 40 MG TABLET PO (08:19)
[2025-07-20] MEDS: POTASSIUM CHLORIDE 20 MEQ ER TABLET 40 MEQ PO (08:20)
[2025-07-20 08:23] VITALS: PULSE 85
[2025-07-20] MEDS: SOTALOL HCL 80 MG TABLET PO ×2 (08:23→20:35)
[2025-07-20] MEDS: POTASSIUM CHLORIDE 20 MEQ PACKET (FOR LIQUID) PO (08:24)
[2025-07-20] MEDS: PRAVASTATIN SODIUM 10 MG TABLET BY MOUTH (08:25)
[2025-07-20] MEDS: INSULIN GLARGINE (*BKC) 100 UNITS/ML 10 UNITS SUB-Q (08:27)
--- NOTE | 2025-07-20 08:45 | P.PNIM_ITS ---
Progress Note: A&P Assessment and Plan (1) Fall: Code(s): W19.XXXA - Unspecified fall, initial encounter Status: Acute Assessment and Plan: Likely due to UTI and weakness PT OT evaluate and treat Treat underlying infections Fall precautions (2) UTI (urinary tract infection): Code(s): N39.0 - Urinary tract infection, site not specified Status: Acute Assessment and Plan: IV Rocephin Culture and sensitive pending No IV fluids due to pulmonary edema and pleural effusion (3) Pulmonary edema: Code(s): J81.1 - Chronic pulmonary edema Status: Acute Assessment and Plan: Patient likely has a history of CHF as she is on Lasix at home IV Lasix x1 Daily weight Fluid restriction (4) Pleural effusion: Code(s): J90 - Pleural effusion, not elsewhere classified Status: Acute Assessment and Plan: A.m. chest x-ray Changed PO 40mg Lasix to IV Follow creatinine (5) Pneumonia: Qualifiers: Laterality: bilateral Lung location: unspecified part of lung Pneumonia type: due to unspecified organism Qualified Code(s): J18.9 - Pneumonia, unspecified organism Code(s): J18.9 - Pneumonia, unspecified organism Status: Acute Assessment and Plan: IV Rocephin and azithromycin Guaifenesin Incentive spirometer (6) Cervical spine fracture: Code(s): S12.9XXA - Fracture of neck, unspecified, initial encounter Status: Acute Assessment and Plan: From previous fall status post surgery Continue C-collar [employer] neuro surgery has privileges here Fluid collections seen on CT however Neurosurgery states that this is normal postop, patient has no neuro deficits Sarai has been on hold since 06/26. Restart if ok with neurosurgery. 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 CT showed colitis involving the rectosigmoid. 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: Code(s): I25.719 - Atherosclerosis of autologous vein coronary artery bypass graft(s) with unspecified angina pectoris Status: Chronic Assessment and Plan: Continue losartan, metoprolol, pravastatin and s sotalol (10) Dyslipidemia: Code(s): E78.5 - Hyperlipidemia, unspecified Status: Acute Assessment and Plan: Continue statin (11) Pressure ulcer: Code(s): L89.90 - Pressure ulcer of unspecified site, unspecified stage Status: Acute Assessment and Plan: Stage III on coccyx and sacrum Wound care consulted No signs of infection (12) Diarrhea: Code(s): R19.7 - Diarrhea, unspecified Status: Acute Assessment and Plan: C diff negative Ordered stool studies Subjective Date/time seen: 07/20/25 08:45 Interval history: Patient had no episodes of diarrhea. Replenish potassium. Review of Systems Review of Systems: 10 point ROS complete, negative other th an what is specified in HPI. All systems reviewed & are unremarkable except as noted in HPI and below ROS unobtainable: Yes unobtainable due to medical condition and unobtainable due to mental status Exam Narrative: - GENERAL: Pleasant chronically ill-lior earing elderly woman in no acute distress - EYES: EOMI. Anicteric. - HENT: Moist mucous membranes. C-colla r in place - LUNGS: Clear to auscultation on 2L O2 - CARDIOVASCULAR: Regular rate and rhyt hm - ABDOMEN: Soft, nondistended, nontender , bowel sounds present - EXTREMITIES: No edema. Peripheral puls es 2+. eschar wound on left forearm - NEUROLOGIC: No focal neurological defi cits. CN II-XII grossly intact. - PSYCHIATRIC: Awake, Alert and oriented x 3. Appropriate mood and affect. Objective Data Vital Signs Vital Signs: Vital Signs - 24 hr 07/19/25 09:30 07/19/25 14:00 07/19/25 21:53 Temperature 97.2 F L 97.7 F Pulse Rate 84 72 91 Respiratory Rate 16 22 H Blood Pressure 128/67 139/62 Pulse Oximetry 99 98 07/20/25 06:00 07/20/25 08:23 Temperature 97.7 F Pulse Rate 94 85 Respiratory Rate 28 H Blood Pressure 112/79 Pulse Oximetry 90 Intake/Output Intake/Output: Intake & Output 07/17/25 07/18/25 07/19/25 07/20/25 23:59 23:59 23:59 23:59 Intake Total 1310 1770 1260 50 Output Total 2451 1700 850 300 Balance -1141 70 410 -250 Meds/Results Medications: Active Medications Generic Name Dose Route Start Last Admin Trade Name Freq PRN Reason Stop Dose Admin Acetaminophen 650 mg 07/07/25 08:10 07/15/25 13:04 Acetaminophen 325 Mg Tablet PO 650 mg Q4H PRN Administration Mild Pain (1-3) or Fever Acetaminophen 650 mg 07/10/25 17:36 07/10/25 21:18 Acetaminophen 650 Mg Suppository RECTAL 650 mg Q6H PRN Administration Fever Alteplase, Recombinant 2 mg 07/19/25 13:00 07/19/25 13:51 Alteplase 2 Mg Vial (Cathflo) IV PUSH 2 mg ONCE PRN Administration Line Occlusion Dextrose 12.5 gm 07/10/25 15:08 Dextrose 50% 25 Gm/50 Ml Syringe IV PUSH PRN PRN Hypoglycemia Protocol Glucagon 1 mg 07/10/25 15:08 Glucagon For Inj 1 Mg Vial IM PRN PRN Hypoglycemia Protocol Glucose 15 gm 07/10/25 15:08 Glucose Oral Gel 15 Gm Of Glucse In 37.5 Gm Tube PO PRN PRN Hypoglycemia Protocol Dextrose 1,000 mls @ 100 mls/hr 07/10/25 15:08 Dextrose 5% 1,000 Ml IVPB PRN PRN Hypoglycemia Protocol Insulin Aspart 3 - 6 units 07/10/25 17:00 07/20/25 08:24 Insulin Aspart (*Bkc) 100 Units/Ml SUB-Q Not Given Q4HR IVONE Protocol Insulin Glargine 10 units 07/12/25 09:00 07/20/25 08:27 Insulin Glargine (*Bkc) 100 Units/Ml SUB-Q 10 units DAILY IVONE Administration Ipratropium [place] 0.5 mg 07/14/25 08:25 Ipratropium Br 0.02% Inh Soln 0.5 Mg/2.5 Ml Vial INHALATION Q6HRT PRN Wheezing Levalbuterol HCl 0.63 mg 07/14/25 08:25 Levalbuterol Neb 1.25 Mg/3 Ml INHALATION Q6HRT PRN Wheezing Loperamide HCl 2 mg 07/07/25 14:57 07/19/25 06:45 Loperamide Hcl 2 Mg Capsule PO 2 mg PRN PRN Administration Diarrhea Metoprolol Tartrate 5 mg 07/15/25 11:44 Metoprolol Tartrate Inj 5 Mg/5 Ml Vial IV PUSH Q3H PRN HR > 120 sustained Pantoprazole Sodium 40 mg 07/18/25 09:00 07/20/25 08:19 Pantoprazole 40 Mg Tablet PO 40 mg QAM IVONE Administration Potassium Chloride 20 meq 07/18/25 09:00 07/20/25 08:24 Potassium Chloride 20 Meq Packet (For Liquid) PO 20 meq DAILY IVONE Administration Pramipexole Dihydrochloride 0.5 mg 07/07/25 21:00 07/19/25 20:47 Pramipexole 0.5 Mg Tablet PO 0.5 mg HS IVONE Administration Pravastatin Sodium 10 mg 07/08/25 09:00 07/20/25 08:25 Pravastatin Sodium 10 Mg Tablet BY MOUTH 10 mg DAILY IVONE Administration Prednisone 10 mg 07/18/25 08:00 07/20/25 08:24 Prednisone 10 Mg Tablet PO 10 mg DAILY@0800 IVONE Administration Rivaroxaban 20 mg 07/17/25 17:00 07/19/25 17:44 Rivaroxaban 20 Mg Tablet PO 20 mg DAILY@1700 IVONE Administration Sodium Chloride 20 ml 07/10/25 20:33 07/18/25 06:09 Central Line Flush IV PUSH 20 ml PRN PRN Administration after blood draws Sodium Chloride 10 ml 07/13/25 14:00 07/19/25 20:56 Central Line Flush IV PUSH 10 ml Q8HR IVONE Administration Sodium Chloride 10 ml 07/13/25 08:09 Central Line Flush IV PUSH PRN PRN with TPN bag changes Sodium Chloride 20 ml 07/13/25 08:09 Central Line Flush IV PUSH PRN PRN after blood draws Sotalol HCl 80 mg 07/16/25 21:00 07/20/25 08:23 Sotalol Hcl 80 Mg Tablet PO 80 mg Q12HR IVONE Administration Trimethobenzamide HCl 200 mg 07/07/25 14:56 07/12/25 04:26 Trimethobenzamide Hcl 200 Mg/2 Ml Vial IM 200 mg Q6H PRN Administration Nausea And Vomiting Radiology Results: ITS Impressions Cervical Spine CT 07/07/25 06:30 IMPRESSION: HEAD: 1. No acute intracranial findings. 2. Bilateral mastoiditis. C-SPINE: 1. No acute fracture. 2. Ill-defined fluid and postoperative changes posterior to upper cervical spine. 3. Extensive bilateral upper lung airspace disease, and left pleural effusion. Chest/Abdomen/Pelvis CT 07/07/25 07:13 IMPRESSION: 1. Diffuse lung disease, likely a combination of pneumonia in the upper lobes and left lower lobe and mild pulmonary edema. 2. Small pleural effusions. 3. Colitis involving the rectosigmoid. Head CT 07/10/25 15:36 Impression: 1.No acute intracranial abnormality. Abdomen/Pelvis CT 07/13/25 13:46 IMPRESSION: 1. Increased size of pleural effusions which are small to moderate compared to small on the previous exam. Bibasilar atelectatic changes with possible developing consolidation and/or vascular congestion. 2. Fluid and gas dilated rectosigmoid region with findings suggestive of mild colitis and diarrhea process. 3. Extraperitoneal findings of uncertain significance possibly associated with the air foci associated with injections. Correlate clinically to exclude active inflammatory/infectious process in the extra peritoneal soft tissues. NG Tube Placement 07/13/25 14:43 IMPRESSION: 1. Fluoroscopy utilized during placement of a nasogastric tube with distal tip in proximal side port in the body the stomach. Abdomen X-Ray 07/17/25 08:30 IMPRESSION: Unchanged exam compared to yesterday. Chest X-Ray 07/19/25 07:57 IMPRESSION: 1. Persistent interstitial pulmonary edema with left basilar atelectasis and/or airspace disease. 2. Suspect left pleural effusion. 3. Superimposed airspace disease not excluded. Labs Labs: Laboratory Results - last 24 hr 07/19/25 07/19/25 07/19/25 11:37 11:51 16:31 WBC RBC Hgb Hct MCV MCH MCHC RDW Plt Count MPV Sodium Potassium Chloride Carbon Dioxide Anion Gap BUN Creatinine Estim Creat Clear Calc Estimated GFR Glucose POC Capillary Glucose 148 H 197 H Calcium Total Bilirubin AST ALT Alkaline Phosphatase NT-Pro-B Natriuret Pep 3240 H Total Protein Albumin 07/19/25 07/20/25 07/20/25 19:56 05:02 07:39 WBC 11.3 H RBC 3.55 L Hgb 9.9 L Hct 33.3 L MCV 93.8 MCH 27.9 MCHC 29.7 L RDW 18.8 H Plt Count 254 MPV 12.1 H Sodium 133 L Potassium 3.4 Chloride 102 Carbon Dioxide 29 Anion Gap 2 L BUN 15 Creatinine 0.75 Estim Creat Clear Calc 53 Estimated GFR > 60 Glucose 181 H POC Capillary Glucose 209 H 189 H Calcium 8.4 Total Bilirubin 0.5 AST 22 ALT 21 Alkaline Phosphatase 166 H NT-Pro-B Natriuret Pep Total Protein 5.5 L Albumin 3.1 L Quality VTE Prophylaxis VTE prophylaxis: mechanical ordered Hospitalist MIPS Advance Care Plan I have confirmed that the patient's Advanced Care Plan is present, code status is documented, or surrogate decision maker is listed in patient medical record.: Yes Medication Reconciliation I have utilized all available resources to obtain, update and review the patients current medications (includes all prescriptions, OTC, herbals, cannabis, and nutritional supplements).: Yes
[2025-07-20 09:48] LABS: NT Pro B Type Natriuretic Pept 3220 pg/mL (19.9-100)
[2025-07-20] MEDS: INSULIN ASPART (*BKC) 100 UNITS/ML SUB-Q ×2 (12:03→17:44)
--- NOTE | 2025-07-20 13:15 | PCPTNOTE ---
Attempted to see patient for PT, however patient just got back to bed with nursing and declined PT at this time.
[2025-07-20 14:00] VITALS: BP 149/76; PULSE 88; RESP 22; TEMP 35.9; O2SAT 97
[2025-07-20] MEDS: CENTRAL LINE FLUSH 10 ML IV PUSH ×2 (14:45→20:35)
[2025-07-20 16:54] LABS: IFOB Positive Control Positive; Immunochemical Fecal Occult Bl Negative (N)
[2025-07-20 17:29] LABS: Toxigenic C. Diff NEGATIVE (NEGATIVE)
[2025-07-20] MEDS: ACETAMINOPHEN 325 MG TABLET 650 MG PO (17:41)
[2025-07-20] MEDS: RIVAROXABAN 20 MG TABLET PO (17:42)
[2025-07-20 19:45] VITALS: BP 133/64; PULSE 84; RESP 16; TEMP 36.4; O2SAT 99
[2025-07-20 20:00] VITALS: O2SAT 97
[2025-07-20] MEDS: PRAMIPEXOLE 0.5 MG TABLET PO (20:35)
[2025-07-21] VITALS (44 sets, daily range): BP systolic 91–140; BP diastolic 53–94; PULSE 54–125; RESP 15–33; TEMP 36–37.2; O2SAT 92–100; BMI 31.4
[2025-07-21 05:10] LABS: Hematocrit 30.8 % (37.0-47.0); Hemoglobin 9.0 g/dL (12.0-15.0); Mean Corpuscular HGB Conc 29.2 g/dl (32-36); Mean Corpuscular Hemoglobin 27.8 pg (26-34); Mean Corpuscular Volume 95.1 fl (80-100); Platelet Count Result 218 k/mm3 (150-375); Red Blood Count 3.24 M/mm3 (4.2-5.4); White Blood Count 10.7 K/mm3 (4.5-10.0)
[2025-07-21 05:30] LABS: Alanine Aminotransferase 22 U/L (6-35); Albumin Level 2.8 g/dL (3.5-5.1); Alkaline Phosphatase 171 U/L (38-126); Anion Gap -1 mmol/L (4-12); Aspartate Amino Transferase 22 U/L (14-36); Bilirubin,Total 0.4 mg/dL (0.2-1.3); Blood Urea Nitrogen 15 mg/dL (7-17); Calcium 8.8 mg/dL (8.4-10.2); Carbon Dioxide 29 mmol/L (22-30); Chloride 104 mmol/L (98-107); Estimated CRCL calculation 48 ml/min; Estimated Glomerular Filt Rate > 60; Glucose 167 mg/dL (65-110); Potassium 4.8 mmol/L (3.4-5.0); Sodium 132 mmol/L (137-145); Total Protein 5.3 g/dL (6.3-8.2)
[2025-07-21 05:48] LABS: Alveolar/Arterial O2 Gradient 57.7 mmHg; Carboxyhemoglobin 1.6 % THb (0-2.0); Fractional Inspired Oxygen 28 %; HCO3 ABG 25.2 mEq/l (22.0-26.0); Methemoglobin ABG 0.3 %THb (0-1.5); Oxygen Content ABG 12.7 %vol (16.0-22.0); Oxygen Saturation ABG 89.8 % (95.0-100.0); PO2 ABG 68.7 mmHg (80.0-100.0); PO2 FiO2 Ratio Arterial Blood 2.45 %; Reduced Hemoglobin 8.1 %THb (0-5.0)
[2025-07-21 05:52] LABS: PCO2 ABG 62.1 mmHg (35.0-45.0)
[2025-07-21 05:53] LABS: Liters per Minute 2.0 LPM; Modified Allen's Test Pass; Site Drawn RIGHT BRACHIAL
--- NOTE | 2025-07-21 06:23 | P.PNCROSS_ITS ---
Event Note Event Note Event Note: The patient desatted down to 88%. ABGs were performed and the patient was plac ed on Airvo. Chest x-ray was performed. As per my review of the chest x-ray. The patient appears to have right lower lobe consolidation versus pulmonary edema. The patient recently was treated for pneumonia. The patient was placed on cefepime and doxycycline this morning. And placed on an Airvo. We will repeat ABGs in a few hours. Awaiting official radiology read on the chest x- ray. She was also given a 1 time dose of Lasix.
[2025-07-21] MEDS: CENTRAL LINE FLUSH 10 ML IV PUSH ×3 (06:30→22:02)
[2025-07-21] MEDS: FUROSEMIDE INJ 40 MG/4 ML VIAL 20 MG IV PUSH (06:30)
[2025-07-21] MEDS: CEFEPIME 2 GM in SODIUM CHLORIDE 0.9% IV 50 ML 100 ML IVPB ×2 (06:30→18:17)
--- NOTE | 2025-07-21 07:22 | P.PNIM_ITS ---
Progress Note: A&P Assessment and Plan (1) Ileus: Code(s): K56.7 - Ileus, unspecified Status: Acute (2) Encephalopathy: Code(s): G93.40 - Encephalopathy, unspecified Status: Acute (3) Sepsis: Code(s): A41.9 - Sepsis, unspecified organism Status: Acute (4) Acute exacerbation of chronic obstructive pulmonary disease: Code(s): J44.1 - Chronic obstructive pulmonary disease with (acute) exacerbation Status: Acute (5) UTI (urinary tract infection): Code(s): N39.0 - Urinary tract infection, site not specified Status: Acute (6) Paroxysmal atrial fibrillation: Code(s): I48.0 - Paroxysmal atrial fibrillation Status: Chronic (7) Type 2 diabetes mellitus with diabetic nephropathy: Qualifiers: Diabetes mellitus care home insulin use: without care home use Qualified Code(s): E11.21 - Type 2 diabetes mellitus with diabetic nephropathy Code(s): E11.21 - Type 2 diabetes mellitus with diabetic nephropathy Status: Acute (8) Sarcoid: Code(s): D86.9 - Sarcoidosis, unspecified Status: Acute Assessment and Plan: Recently diagnosed sarcoidosis and [facility] -patient's calcium level a within normal limits Continue home dose steroid (9) Pulmonary hypertension: Code(s): I27.20 - Pulmonary hypertension, unspecified Status: Acute Assessment and Plan: History of pulmonary hypertension, likely related to sleep apnea, sarcoidosis, interstitial lung disease, coronary artery disease, COPD/: Pulmonology 11/21/2022: Echocardiogram RVSP was 59 mmHg Cardiology following the patient for atrial fibrillation and atrial tachycardia 07/11/2025: Echocardiogram Summary 1. Definity contrast administered improved wall motion interpretation. 2. Left ventricular chamber dimension is normal. 3. Left ventricular systolic function is normal, estimated at 65-70. 4. There is moderate concentric increased left ventricular wall thickness. 5. The left ventricular diastolic function is abnormal. 6. E/e' 26 is significantly elevated. 7. Right ventricular systolic function is reduced based on an abnormal TAPSE 1.4 cm. 8. Left atrial chamber dimension is mildly enlarged. 9. There is moderate aortic valve sclerosis. 10. The mitral valve has a moderately calcified annulus. 11. There is trace mitral valve regurgitation. 12. There is moderate tricuspid valve regurgitation. 13. Severe pulmonary hypertension, estimated pulmonary arterial systolic pressure is 60 mmHg. 14. There is trace pulmonic regurgitation. (10) Fall: Code(s): W19.XXXA - Unspecified fall, initial encounter Status: Acute Assessment and Plan: Patient presented with a fall on 07/07 -status post fusion of C2-C6 at [facility] on 06/26/2025 for cervical myelopathy -07/07: CT cervical spine showed fluid collection at the surgical site. Neurosurgery at [facility] evaluated the patient, no drainage from her incision and hardware was well-positioned, the neurosurgery team had no additional recommendations. -PT OT has been ordered (11) Pressure ulcer: Code(s): L89.90 - Pressure ulcer of unspecified site, unspecified stage Status: Acute Assessment and Plan: Stage III pressure ulcer on coccyx and sacrum -wound care following Plan Transferred to ICU Acute hypoxic respiratory failure Community-acquired pneumonia Sarcoidosis -patient on heated high-flow oxygen changed to BiPAP -appreciate pulmonology and annealing operator recommendations -Continue cefepime, doxycycline, vancomycin -MRSA nares positive -repeated blood culture and lactic acid Ileus, resolved -KUB concerning for worsening dilated loops of bowel -appreciate GI consult: Advanced diet as tolerated -appreciate general surgical consultation: Advanced diet as tolerated -abdominal CT scan with contrast 07/13: Including dilated rectosigmoid concerning for colitis, no SBO -NG tube placed by IR 07/13, now removed -advancing to soft foods 07/17 Multifocal atrial tachycardia, improved Paroxysmal atrial fibrillation, improved -patient has paroxysmal atrial fibrillation on Xarelto and rate control with sotalol -currently patient appears to have atrial tachycardia heart rate fluctuating from 90 to 140s -appreciate Cardiology consultation Dr. Sornesen: Continue sotalol, outpatient referral for EP ablation -history of paroxysmal atrial fibrillation Debility -PT OT consulted -patient may benefit from inpatient rehab -discussed with case management Diarrhea Resolved C.Diff neg Chronic conditions -type 2 diabetes: Monitor glucose, resuming glargine 10 units daily, sliding scale insulin -polymyalgia rheumatica -pulmonary hypertension, HFpEF: resume home lasix 40mg PO daily -recent c-spine surgery. Posterior cervical decompression and fusion C2-6 at [facility] on 06/26/25 keep c-collar on for [address] Lowry. C-collar in place. -hyperlipidemia: Pravastatin -RLS: Mirapex, Robaxin -essential hypertension: holding Losartan for low BP, on sotalol -supplements: Vitamin D3 Subjective Date/time seen: 07/21/25 07:22 Interval history: Interval history: Patient was recently admitted to [facility] for 26 days. During this hospitalization she had the above-mentioned cervical neck operation. In addition she had an abnormal CT scan with upper lobe infiltrates and high calcium levels. Patient was seen by the Pulmonary team and she underwent biopsy. After the biopsy the Pulmonary team told the that she had sarcoid and that she required prednisone 10 mg a day to control her calcium.She was discharged to [facility] on 07/04/2025. She was admitted on due to fall in [facility] which is complicated by respiratory distress and transferred to ICU. During the hospitalization patient also had ileus which was resolved. Patient was later downgraded to IMU and floor. 07/21: Nursing reported about a respiratory distress. Patient was initially on Airvo 35 L saturating in the mid 80s. Reviewed chest x-ray and ABG with annealing operator who recommend BiPAP 14/03 and Lasix 80 mg IV 1 time. Patient will be NPO except for meds. TRANSFER to ICU Review of Systems Review of Systems: 10 point ROS complete, negative other th an what is specified in HPI. All systems reviewed & are unremarkable except as noted in HPI and below ROS unobtainable: Yes unobtainable due to medical condition and unobtainable due to mental status Objective Data Vital Signs Vital Signs: Vital Signs - 24 hr 07/20/25 08:00 07/20/25 08:23 07/20/25 14:00 Temperature 96.6 F L Pulse Rate 85 88 Respiratory Rate 22 H Blood Pressure 149/76 H Pulse Oximetry 94 97 Oxygen Delivery Nasal Cannula Oxygen Flow Rate 2 07/20/25 19:45 07/20/25 20:00 07/21/25 03:06 Temperature 97.6 F 96.8 F L Pulse Rate 84 85 Respiratory Rate 16 16 Blood Pressure 133/64 112/61 Pulse Oximetry 99 97 94 Oxygen Delivery Nasal Cannula Oxygen Flow Rate 2 Intake/Output Intake/Output: Intake & Output 07/18/25 07/19/25 07/20/25 07/21/25 23:59 23:59 23:59 23:59 Intake Total 1770 1260 430 0 Output Total 1700 850 750 100 Balance 70 410 -320 -100 Meds/Results Medications: Active Medications Generic Name Dose Route Start Last Admin Trade Name Isabelle PRN Reason Stop Dose Admin Acetaminophen 650 mg 07/07/25 08:10 07/20/25 17:41 Acetaminophen 325 Mg Tablet PO 650 mg Q4H PRN Administration Mild Pain (1-3) or Fever Acetaminophen 650 mg 07/10/25 17:36 07/10/25 21:18 Acetaminophen 650 Mg Suppository RECTAL 650 mg Q6H PRN Administration Fever Alteplase, Recombinant 2 mg 07/19/25 13:00 07/19/25 13:51 Alteplase 2 Mg Vial (Cathflo) IV PUSH 2 mg ONCE PRN Administration Line Occlusion Dextrose 12.5 gm 07/10/25 15:08 Dextrose 50% 25 Gm/50 Ml Syringe IV PUSH PRN PRN Hypoglycemia Protocol Glucagon 1 mg 07/10/25 15:08 Glucagon For Inj 1 Mg Vial IM PRN PRN Hypoglycemia Protocol Glucose 15 gm 07/10/25 15:08 Glucose Oral Gel 15 Gm Of Glucse In 37.5 Gm Tube PO PRN PRN Hypoglycemia Protocol Dextrose 1,000 mls @ 100 mls/hr 07/10/25 15:08 Dextrose 5% 1,000 Ml IVPB PRN PRN Hypoglycemia Protocol Doxycycline Hyclate 100 mg/ 100 mls @ 100 mls/hr 07/21/25 08:00 Sodium Chloride IVPB 07/25/25 20:59 Q12H IVONE Cefepime HCl 2 gm/ Sodium 50 mls @ 100 mls/hr 07/21/25 07:00 07/21/25 06:30 Chloride IVPB 100 mls/hr Q12H IVONE Administration Insulin Aspart 3 - 6 units 07/10/25 17:00 07/21/25 03:43 Insulin Aspart (*Bkc) 100 Units/Ml SUB-Q Not Given Q4HR [facility] Protocol Insulin Glargine 10 units 07/12/25 09:00 07/20/25 08:27 Insulin Glargine (*Bkc) 100 Units/Ml SUB-Q 10 units DAILY IVONE Administration Ipratropium [place] 0.5 mg 07/14/25 08:25 Ipratropium Br 0.02% Inh Soln 0.5 Mg/2.5 Ml Vial INHALATION Q6HRT PRN Wheezing Levalbuterol HCl 0.63 mg 07/14/25 08:25 Levalbuterol Neb 1.25 Mg/3 Ml INHALATION Q6HRT PRN Wheezing Loperamide HCl 2 mg 07/07/25 14:57 07/19/25 06:45 Loperamide Hcl 2 Mg Capsule PO 2 mg PRN PRN Administration Diarrhea Metoprolol Tartrate 5 mg 07/15/25 11:44 Metoprolol Tartrate Inj 5 Mg/5 Ml Vial IV PUSH Q3H PRN HR > 120 sustained Pantoprazole Sodium 40 mg 07/18/25 09:00 07/20/25 08:19 Pantoprazole 40 Mg Tablet PO 40 mg QAM IVONE Administration Potassium Chloride 20 meq 07/18/25 09:00 07/20/25 08:24 Potassium Chloride 20 Meq Packet (For Liquid) PO 20 meq DAILY IVONE Administration Pramipexole Dihydrochloride 0.5 mg 07/07/25 21:00 07/20/25 20:35 Pramipexole 0.5 Mg Tablet PO 0.5 mg HS IVONE Administration Pravastatin Sodium 10 mg 07/08/25 09:00 07/20/25 08:25 Pravastatin Sodium 10 Mg Tablet BY MOUTH 10 mg DAILY IVONE Administration Prednisone 10 mg 07/18/25 08:00 07/20/25 08:24 Prednisone 10 Mg Tablet PO 10 mg DAILY@0800 IVONE Administration Rivaroxaban 20 mg 07/17/25 17:00 07/20/25 17:42 Rivaroxaban 20 Mg Tablet PO 20 mg DAILY@1700 IVONE Administration Sodium Chloride 20 ml 07/10/25 20:33 07/18/25 06:09 Central Line Flush IV PUSH 20 ml PRN PRN Administration after blood draws Sodium Chloride 10 ml 07/13/25 14:00 07/21/25 06:30 Central Line Flush IV PUSH 10 ml Q8HR IVONE Administration Sodium Chloride 10 ml 07/13/25 08:09 Central Line Flush IV PUSH PRN PRN with TPN bag changes Sodium Chloride 20 ml 07/13/25 08:09 Central Line Flush IV PUSH PRN PRN after blood draws Sotalol HCl 80 mg 07/16/25 21:00 07/20/25 20:35 Sotalol Hcl 80 Mg Tablet PO 80 mg Q12HR IVONE Administration Trimethobenzamide HCl 200 mg 07/07/25 14:56 07/12/25 04:26 Trimethobenzamide Hcl 200 Mg/2 Ml Vial IM 200 mg Q6H PRN Administration Nausea And Vomiting Radiology Results: ITS Impressions Cervical Spine CT 07/07/25 06:30 IMPRESSION: HEAD: 1. No acute intracranial findings. 2. Bilateral mastoiditis. C-SPINE: 1. No acute fracture. 2. Ill-defined fluid and postoperative changes posterior to upper cervical spine. 3. Extensive bilateral upper lung airspace disease, and left pleural effusion. Chest/Abdomen/Pelvis CT 07/07/25 07:13 IMPRESSION: 1. Diffuse lung disease, likely a combination of pneumonia in the upper lobes and left lower lobe and mild pulmonary edema. 2. Small pleural effusions. 3. Colitis involving the rectosigmoid. Head CT 07/10/25 15:36 Impression: 1.No acute intracranial abnormality. Abdomen/Pelvis CT 07/13/25 13:46 IMPRESSION: 1. Increased size of pleural effusions which are small to moderate compared to small on the previous exam. Bibasilar atelectatic changes with possible developing consolidation and/or vascular congestion. 2. Fluid and gas dilated rectosigmoid region with findings suggestive of mild colitis and diarrhea process. 3. Extraperitoneal findings of uncertain significance possibly associated with the air foci associated with injections. Correlate clinically to exclude active inflammatory/infectious process in the extra peritoneal soft tissues. NG Tube Placement 07/13/25 14:43 IMPRESSION: 1. Fluoroscopy utilized during placement of a nasogastric tube with distal tip in proximal side port in the body the stomach. Abdomen X-Ray 07/17/25 08:30 IMPRESSION: Unchanged exam compared to yesterday. Chest X-Ray 07/21/25 06:40 IMPRESSION: 1. Worsening bibasilar atelectasis and/or airspace disease with small pleural effusions. 2. Persistent interstitial pulmonary edema and/or pneumonitis. Labs Labs: Laboratory Results - last 24 hr 07/20/25 07/20/25 07/20/25 04:57 07:39 11:50 WBC RBC Hgb Hct MCV MCH MCHC RDW Plt Count MPV Puncture Site ABG pH ABG pCO2 ABG pO2 ABG PO2/FiO2 Ratio ABG HCO3 ABG O2 Saturation ABG O2 Content ABG Base Excess A-a Gradient Oxyhemoglobin Carboxyhemoglobin Methemoglobin Reduced Hemoglobin Total Hemoglobin O2 Delivery Device O2 Liters/Min FiO2 Sodium Potassium Chloride Carbon Dioxide Anion Gap BUN Creatinine Estim Creat Clear Calc Estimated GFR Glucose POC Capillary Glucose 189 H 263 H Calcium Total Bilirubin AST ALT Alkaline Phosphatase NT-Pro-B Natriuret Pep 3220 H Total Protein Albumin Stl Occult Blood (IFOB) C. difficile (PCR) 07/20/25 07/20/25 07/20/25 16:01 16:36 19:51 WBC RBC Hgb Hct MCV MCH MCHC RDW Plt Count MPV Puncture Site ABG pH ABG pCO2 ABG pO2 ABG PO2/FiO2 Ratio ABG HCO3 ABG O2 Saturation ABG O2 Content ABG Base Excess A-a Gradient Oxyhemoglobin Carboxyhemoglobin Methemoglobin Reduced Hemoglobin Total Hemoglobin O2 Delivery Device O2 Liters/Min FiO2 Sodium Potassium Chloride Carbon Dioxide Anion Gap BUN Creatinine Estim Creat Clear Calc Estimated GFR Glucose POC Capillary Glucose 239 H 193 H Calcium Total Bilirubin AST ALT Alkaline Phosphatase NT-Pro-B Natriuret Pep Total Protein Albumin Stl Occult Blood (IFOB) Negative C. difficile (PCR) Negative 07/21/25 07/21/25 04:57 05:32 WBC 10.7 H RBC 3.24 L Hgb 9.0 L Hct 30.8 L MCV 95.1 MCH 27.8 MCHC 29.2 L RDW 18.7 H Plt Count 218 MPV 11.8 H Puncture Site Right brachial ABG pH 7.227 L* ABG pCO2 62.1 H* ABG pO2 68.7 L ABG PO2/FiO2 Ratio 2.45 ABG HCO3 25.2 ABG O2 Saturation 89.8 L ABG O2 Content 12.7 L ABG Base Excess -2.9 A-a Gradient 57.7 Oxyhemoglobin 90.0 Carboxyhemoglobin 1.6 Methemoglobin 0.3 Reduced Hemoglobin 8.1 H Total Hemoglobin 10.0 L O2 Delivery Device Nasal cannula O2 Liters/Min 2.0 FiO2 28 Sodium 132 L Potassium 4.8 Chloride 104 Carbon Dioxide 29 Anion Gap -1 L BUN 15 Creatinine 0.84 Estim Creat Clear Calc 48 Estimated GFR > 60 Glucose 167 H POC Capillary Glucose Calcium 8.8 Total Bilirubin 0.4 AST 22 ALT 22 Alkaline Phosphatase 171 H NT-Pro-B Natriuret Pep Total Protein 5.3 L Albumin 2.8 L Stl Occult Blood (IFOB) C. difficile (PCR) Quality VTE Prophylaxis VTE prophylaxis: mechanical ordered Hospitalist MIPS Advance Care Plan I have confirmed that the patient's Advanced Care Plan is present, code status is documented, or surrogate decision maker is listed in patient medical record.: Yes Medication Reconciliation I have utilized all available resources to obtain, update and review the patients current medications (includes all prescriptions, OTC, herbals, cannabis, and nutritional supplements).: Yes
[2025-07-21] MEDS: FUROSEMIDE INJ 100 MG/10 ML VIAL 80 MG IV PUSH (07:52)
--- NOTE | 2025-07-21 08:26 | PC.NURSE ---
This patient, Laura Clifford, was received from rosalia 300Saumya RN on 07/21/25 at 0820. Patient/family oriented to unit policies and routines
[2025-07-21] MEDS: VANCOMYCIN 2,000 MG/NS 500 ML 2,000 MG/500 ML BAG 250 MG IVPB (08:46)
[2025-07-21 08:58] LABS: Alveolar/Arterial O2 Gradient 122.0 mmHg; Fractional Inspired Oxygen 40 %; HCO3 ABG 27.0 mEq/l (22.0-26.0); Oxygen Content ABG 13.5 %vol (16.0-22.0); Oxygen Saturation ABG 95.6 % (95.0-100.0); PO2 ABG 91.9 mmHg (80.0-100.0); PO2 FiO2 Ratio Arterial Blood 2.30 %
[2025-07-21 09:00] LABS: Modified Allen's Test Pass; PCO2 ABG 62.0 mmHg (35.0-45.0); Site Drawn RIGHT RADIAL
[2025-07-21] MEDS: INSULIN GLARGINE (*BKC) 100 UNITS/ML 10 UNITS SUB-Q (09:12)
--- NOTE | 2025-07-21 09:23 | WPDINTPN ---
Progress Note: A&P Assessment and Plan (1) Acute and chronic respiratory failure: Code(s): J96.20 - Acute and chronic respiratory failure, unspecified whether with hypoxia or hypercapnia Status: Acute Assessment and Plan: Acute on chronic hypoxic and hypercapnic respiratory failure likely related to multifactorial issues, patient has a history of COPD, pulmonary hypertension, CHF, sarcoidosis, interstitial lung disease ABG reviewed and exam as above I have transferred patient to ICU and placed on BiPAP Lasix 80 mg IV given I BiPAP was further adjusted in ICU Repeat ABG ordered If patient does not improved she will need intubation and invasive mechanical ventilation Patient also started on broad-spectrum antibiotics Continue steroid bronchodilators (2) Ileus: Code(s): K56.7 - Ileus, unspecified Status: Acute Assessment and Plan: Patient was managed for ileus earlier in the course of the hospitalization. She had NG tube in which was removed after couple days as improved 07/14 CT abdomen pelvis did not show any obstruction Bowel sounds are decreased. Will make patient NPO due to respiratory status and re-evaluate once respiratory status stabilizes No evidence of nausea vomiting or diarrhea Monitor (3) Encephalopathy: Code(s): G93.40 - Encephalopathy, unspecified Status: Acute Assessment and Plan: Likely related to hypercapnic respiratory failure. She had a similar presentation when she came to the hospital She is awake and arousable enough to protect her airway at this time. She had head CTs on 07/07 and 07/10 which showed No acute intracranial abnormality Ammonia levels were normal <9. (4) Sepsis: Code(s): A41.9 - Sepsis, unspecified organism Status: Acute Assessment and Plan: Patient presented with a fall, altered mental status, urinary tract infection -07/07: Urine cultures growing Enterobacter cloaca and Proteus penneri, both of them a susceptible to cefepime. Patient completed course of antibiotics -07/07: Blood cultures no growth x2 -07/10: Urine Legionella and streptococcal antigen pending 07/21 overnight patient will be started on vancomycin and cefepime. She is afebrile her WBC is not significantly increased. Presentation more consistent with CHF and hypoventilation rather than pneumonia.. Check blood cultures procalcitonin level (5) Acute exacerbation of chronic obstructive pulmonary disease: Code(s): J44.1 - Chronic obstructive pulmonary disease with (acute) exacerbation Status: Acute Assessment and Plan: Oxygen therapy as above. P.r.n. bronchodilators. On home dose of steroid Antibiotics as above (6) UTI (urinary tract infection): Code(s): N39.0 - Urinary tract infection, site not specified Status: Acute Assessment and Plan: Continue antibiotics as above, urine culture as above (7) Paroxysmal atrial fibrillation: Code(s): I48.0 - Paroxysmal atrial fibrillation Status: Chronic Assessment and Plan: Patient with history of paroxysmal AFib with intermittent rapid ventricular response, she does nonsustained tachycardia -patient was started on amiodarone overnight Patient was Restarted on sotalol after discussion with Cardiology, amiodarone was turned off. Later due to ileus p.o. medications. 07/14 due to frequent tachycardia patient was started on Cardizem infusion. She was on rivaroxaban but was held as patient was NPO, Also her anticoagulation was stopped by Cardiology as she has had a fall. Dr. Allen discussed with Cardiology regarding anticoagulation, Dr. Sorensen, stated that her in the mostly is atrial tachycardia and not atrial fibrillation and the risk for strokes is much decreased, he would like to wait on anticoagulation. Case was discussed with Dr. Holly. Plan to resume sotalol today. If patient tolerates will transition to sotalol and p.r.n. Lopressor and get her off Cardizem infusion. 07/16 continue p.o. sotalol. Patient is off Cardizem infusion. Continue IV p.r.n. Lopressor.. Continue Xarelto. If patient is unable to tolerate p.o. 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: Qualifiers: Diabetes mellitus buttermaker helper insulin use: without buttermaker helper use Qualified Code(s): E11.21 - Type 2 diabetes mellitus with diabetic nephropathy Code(s): E11.21 - Type 2 diabetes mellitus with diabetic nephropathy Status: Acute Assessment and Plan: Continue SSI and Lantus (9) Sarcoid: Code(s): D86.9 - Sarcoidosis, unspecified Status: Acute Assessment and Plan: Recently diagnosed sarcoidosis and [facility] -patient's calcium level a within normal limits Continue home dose steroid (10) Pulmonary hypertension: Code(s): I27.20 - Pulmonary hypertension, unspecified Status: Acute Assessment and Plan: History of pulmonary hypertension, likely related to sleep apnea, sarcoidosis, interstitial lung disease, coronary artery disease, COPD/: Pulmonology 11/21/2022: Echocardiogram RVSP was 59 mmHg Cardiology following the patient for atrial fibrillation and atrial tachycardia 07/11/2025: Echocardiogram Summary 1. Definity contrast administered improved wall motion interpretation. 2. Left ventricular chamber dimension is normal. 3. Left ventricular systolic function is normal, estimated at 65-70. 4. There is moderate concentric increased left ventricular wall thickness. 5. The left ventricular diastolic function is abnormal. 6. E/e' 26 is significantly elevated. 7. Right ventricular systolic function is reduced based on an abnormal TAPSE 1.4 cm. 8. Left atrial chamber dimension is mildly enlarged. 9. There is moderate aortic valve sclerosis. 10. The mitral valve has a moderately calcified annulus. 11. There is trace mitral valve regurgitation. 12. There is moderate tricuspid valve regurgitation. 13. Severe pulmonary hypertension, estimated pulmonary arterial systolic pressure is 60 mmHg. 14. There is trace pulmonic regurgitation. (11) Fall: Code(s): W19.XXXA - Unspecified fall, initial encounter Status: Acute Assessment and Plan: Patient presented with a fall on 07/07 -status post fusion of C2-C6 at [facility] on 06/26/2025 for cervical myelopathy -07/07: CT cervical spine showed fluid collection at the surgical site. Neurosurgery at [facility] evaluated the patient, no drainage from her incision and hardware was well-positioned, the neurosurgery team had no additional recommendations. -PT OT has been ordered (12) Pressure ulcer: Code(s): L89.90 - Pressure ulcer of unspecified site, unspecified stage Status: Acute Assessment and Plan: Stage III pressure ulcer on coccyx and sacrum -wound care following Plan DVT prophylaxis: Lovenox Stress ulcer prophylaxis: Protonix Nutrition: NPO except meds at this time Code Status: Full code Transfer back to ICU I had a long discussion with patient's at bedside and discussed patient's current status and use of BiPAP. I explained to him that patient may need intubation and mechanical ventilation if patient does not improve. He is not sure and is thinking about it at this time. Total Critical Care Time - 60 minutes Due to a high probability of clinically significant, life threatening deterioration, the patient required my highest level of preparedness to intervene emergently and I personally spent this critical care time directly and personally managing the patient. This critical care time included obtaining a history; examining the patient; pulse oximetry; ordering and review of studies; arranging urgent treatment with development of a management plan; evaluation of patient's response to treatment; frequent reassessment; and discussions with other providers. It was exclusive of separately billable procedures and treating other patients and teaching time. Please see Assessment and Plan section and the rest of the note for further information on patient assessment and treatment Subjective Date/time seen: 07/21/25 Last night patient developed worsening hypoxia and increased mental status changes she was placed on Airvo. Chest x-ray was done and showed. Bibasilar atelectasis with airspace changes and effusions. Patient also had persistent interstitial pulmonary edema. She was given 20 of Lasix. ABG showed hypoxic and hypercarbic respiratory failure. I was called by the hospice to evaluate patient on phone I requested the hospitalist to place patient on BiPAP. When I evaluate patient she was on BiPAP she was drowsy but arousable and followed commands. She denied pain or shortness of breath but appeared very weak and debilitated. Review of system was not obtainable. Patient was transferred to ICU. Interval history: Patient was recently admitted to [facility] for 26 days. During this hospitalization she had cervical neck search. In addition she had an abnormal CT scan with upper lobe infiltrates and high calcium levels. Patient was seen by the Pulmonary team and she underwent biopsy. After the biopsy the Pulmonary team told the that she had sarcoid and that she required prednisone. Patient was discharged on 10 mg a day to control her calcium.She was discharged to [facility] on 07/04/2025. She was admitted on 7 due to fall in [facility] which is complicated by respiratory distress and transferred to ICU. Patient was managed withNIPPV for hypercarbic respiratory failure and was found to be having pleural effusion pulmonary edema. Patient received diuretics. Patient also had ileus and had a gastric tube placed which improved and gastric tube was removed. Patient was downgraded to IMU and and then eventually to floor. It appears that overall patient has not done well and has been gradually getting weak with not enough p.o. intake. Last night patient developed worsening hypoxia and increased mental status changes she was placed on Airvo. Chest x-ray was done and showed. Bibasilar atelectasis with airspace changes and effusions. Patient also had persistent interstitial pulmonary edema. She was given 20 of Lasix. ABG showed hypoxic and hypercarbic respiratory failure. Review of Systems Review of Systems: ROS unobtainable: Yes unobtainable due to medical condition and unobtainable due to mental status Exam Narrative: General: Ill-appearing female, appears older than her stated age and weak HEENT:? pupils equal and reactive, sclera is clear, BiPAP in place Neck:? Hard cervical collar in place Respiratory: Decreased air entry bilaterally no crackles or wheezing Cardiac:? Sinus bradycardia rate controlled Abdomen:? Soft, no tenderness on exam, bowel sounds are significantly decrease Extremities:? Bilateral upper and lower extremity edema, palpable pedal pulses on lower extremities Neuro:? Drowsy but arousable follows commands with all 4 extremity does not answer orientation questions Skin:? Bruising noted on upper extremities Objective Data Vital Signs Vital Signs: Vital Signs - 24 hr 07/20/25 14:00 07/20/25 19:45 07/20/25 20:00 Temperature 35.9 C L 36.4 C Pulse Rate 88 84 Respiratory Rate 22 H 16 Blood Pressure 149/76 H 133/64 Pulse Oximetry 97 99 97 Oxygen Delivery Nasal Cannula Oxygen Flow Rate 2 07/21/25 03:06 07/21/25 08:03 07/21/25 08:21 Temperature 36.0 C L 36.1 C L Pulse Rate 85 86 78 Respiratory Rate 16 32 H 28 H Blood Pressure 112/61 127/62 Pulse Oximetry 94 100 100 Oxygen Delivery BiPAP Oxygen Flow Rate 07/21/25 08:30 07/21/25 09:07 07/21/25 09:07 Temperature 36.0 C L Pulse Rate 86 64 67 Respiratory Rate 24 H 28 H Blood Pressure 106/89 Pulse Oximetry 100 99 Oxygen Delivery BiPAP Oxygen Flow Rate 07/21/25 09:11 Temperature Pulse Rate 64 Respiratory Rate Blood Pressure Pulse Oximetry Oxygen Delivery Oxygen Flow Rate Intake/Output Intake/Output: Intake & Output 07/18/25 07/19/25 07/20/25 07/21/25 23:59 23:59 23:59 23:59 Intake Total 1770 1260 430 0 Output Total 1700 850 750 100 Balance 70 410 -320 -100 Meds/Results Medications: Active Medications Generic Name Dose Route Start Last Admin Trade Name Rodq PRN Reason Stop Dose Admin Acetaminophen 650 mg 07/07/25 08:10 07/20/25 17:41 Acetaminophen 325 Mg Tablet PO 650 mg Q4H PRN Administration Mild Pain (1-3) or Fever Acetaminophen 650 mg 07/10/25 17:36 07/10/25 21:18 Acetaminophen 650 Mg Suppository RECTAL 650 mg Q6H PRN Administration Fever Alteplase, Recombinant 2 mg 07/19/25 13:00 07/19/25 13:51 Alteplase 2 Mg Vial (Cathflo) IV PUSH 2 mg ONCE PRN Administration Line Occlusion Dextrose 12.5 gm 07/10/25 15:08 Dextrose 50% 25 Gm/50 Ml Syringe IV PUSH PRN PRN Hypoglycemia Protocol Furosemide 40 mg 07/21/25 14:00 Furosemide Inj 40 Mg/4 Ml Vial IV PUSH 07/21/25 14:01 ONCE ONE Glucagon 1 mg 07/10/25 15:08 Glucagon For Inj 1 Mg Vial IM PRN PRN Hypoglycemia Protocol Glucose 15 gm 07/10/25 15:08 Glucose Oral Gel 15 Gm Of Glucse In 37.5 Gm Tube PO PRN PRN Hypoglycemia Protocol Dextrose 1,000 mls @ 100 mls/hr 07/10/25 15:08 Dextrose 5% 1,000 Ml IVPB PRN PRN Hypoglycemia Protocol Cefepime HCl 2 gm/ Sodium 50 mls @ 100 mls/hr 07/21/25 07:00 07/21/25 06:30 Chloride IVPB 100 mls/hr Q12H IVONE Administration Vancomycin HCl 1,500 mg in 500 mls @ 250 mls/hr 07/22/25 09:00 Vancomycin 1,500 Mg/Ns 500 Ml IVPB Q24H IVONE Vancomycin HCl 2,000 mg in 500 mls @ 250 mls/hr 07/21/25 09:00 07/21/25 08:46 Vancomycin 2,000 Mg/Ns 500 Ml IVPB 07/21/25 10:59 250 mls/hr ONCE ONE Administration Insulin Aspart 3 - 6 units 07/10/25 17:00 07/21/25 08:45 Insulin Aspart (*Bkc) 100 Units/Ml SUB-Q Not Given Q4HR [facility] Protocol Insulin Glargine 10 units 07/12/25 09:00 07/21/25 09:12 Insulin Glargine (*Bkc) 100 Units/Ml SUB-Q 10 units DAILY IVONE Administration Ipratropium [place] 0.5 mg 07/14/25 08:25 Ipratropium Br 0.02% Inh Soln 0.5 Mg/2.5 Ml Vial INHALATION Q6HRT PRN Wheezing Levalbuterol HCl 0.63 mg 07/14/25 08:25 Levalbuterol Neb 1.25 Mg/3 Ml INHALATION Q6HRT PRN Wheezing Loperamide HCl 2 mg 07/07/25 14:57 07/19/25 06:45 Loperamide Hcl 2 Mg Capsule PO 2 mg PRN PRN Administration Diarrhea Metoprolol Tartrate 5 mg 07/15/25 11:44 Metoprolol Tartrate Inj 5 Mg/5 Ml Vial IV PUSH Q3H PRN HR > 120 sustained Pantoprazole Sodium 40 mg 07/22/25 09:30 Pantoprazole Sodium Iv 40 Mg Vial IV PUSH QAM IVONE Potassium Chloride 20 meq 07/18/25 09:00 07/21/25 09:11 Potassium Chloride 20 Meq Packet (For Liquid) PO Not Given DAILY IVONE Pramipexole Dihydrochloride 0.5 mg 07/07/25 21:00 07/20/25 20:35 Pramipexole 0.5 Mg Tablet PO 0.5 mg On Hold: 07/21/25 08:16 HS IVONE Administration Pravastatin Sodium 10 mg 07/08/25 09:00 07/21/25 09:11 Pravastatin Sodium 10 Mg Tablet BY MOUTH Not Given On Hold: 07/21/25 09:21 DAILY IVONE Prednisone 10 mg 07/18/25 08:00 07/21/25 09:11 Prednisone 10 Mg Tablet PO Not Given DAILY@0800 IVONE Rivaroxaban 20 mg 07/17/25 17:00 07/20/25 17:42 Rivaroxaban 20 Mg Tablet PO 20 mg DAILY@1700 IVONE Administration Sodium Chloride 20 ml 07/10/25 20:33 07/18/25 06:09 Central Line Flush IV PUSH 20 ml PRN PRN Administration after blood draws Sodium Chloride 10 ml 07/13/25 14:00 07/21/25 06:30 Central Line Flush IV PUSH 10 ml Q8HR IVONE Administration Sodium Chloride 10 ml 07/13/25 08:09 Central Line Flush IV PUSH PRN PRN with TPN bag changes Sodium Chloride 20 ml 07/13/25 08:09 Central Line Flush IV PUSH PRN PRN after blood draws Sotalol HCl 80 mg 07/16/25 21:00 07/21/25 09:11 Sotalol Hcl 80 Mg Tablet PO Not Given Q12HR IVONE Trimethobenzamide HCl 200 mg 07/07/25 14:56 07/12/25 04:26 Trimethobenzamide Hcl 200 Mg/2 Ml Vial IM 200 mg Q6H PRN Administration Nausea And Vomiting Radiology Results: ITS Impressions Cervical Spine CT 07/07/25 06:30 IMPRESSION: HEAD: 1. No acute intracranial findings. 2. Bilateral mastoiditis. C-SPINE: 1. No acute fracture. 2. Ill-defined fluid and postoperative changes posterior to upper cervical spine. 3. Extensive bilateral upper lung airspace disease, and left pleural effusion. Chest/Abdomen/Pelvis CT 07/07/25 07:13 IMPRESSION: 1. Diffuse lung disease, likely a combination of pneumonia in the upper lobes and left lower lobe and mild pulmonary edema. 2. Small pleural effusions. 3. Colitis involving the rectosigmoid. Head CT 07/10/25 15:36 Impression: 1.No acute intracranial abnormality. Abdomen/Pelvis CT 07/13/25 13:46 IMPRESSION: 1. Increased size of pleural effusions which are small to moderate compared to small on the previous exam. Bibasilar atelectatic changes with possible developing consolidation and/or vascular congestion. 2. Fluid and gas dilated rectosigmoid region with findings suggestive of mild colitis and diarrhea process. 3. Extraperitoneal findings of uncertain significance possibly associated with the air foci associated with injections. Correlate clinically to exclude active inflammatory/infectious process in the extra peritoneal soft tissues. NG Tube Placement 07/13/25 14:43 IMPRESSION: 1. Fluoroscopy utilized during placement of a nasogastric tube with distal tip in proximal side port in the body the stomach. Abdomen X-Ray 07/17/25 08:30 IMPRESSION: Unchanged exam compared to yesterday. Chest X-Ray 07/21/25 06:40 IMPRESSION: 1. Worsening bibasilar atelectasis and/or airspace disease with small pleural effusions. 2. Persistent interstitial pulmonary edema and/or pneumonitis. Labs Labs: Laboratory Results - last 24 hr 07/20/25 07/20/25 07/20/25 04:57 11:50 16:01 WBC RBC Hgb Hct MCV MCH MCHC RDW Plt Count MPV Puncture Site ABG pH ABG pCO2 ABG pO2 ABG PO2/FiO2 Ratio ABG HCO3 ABG O2 Saturation ABG O2 Content ABG Base Excess A-a Gradient Oxyhemoglobin Carboxyhemoglobin Methemoglobin Reduced Hemoglobin Total Hemoglobin O2 Delivery Device O2 Liters/Min FiO2 Expiratory Pressure Inspiratory Pressure Sodium Potassium Chloride Carbon Dioxide Anion Gap BUN Creatinine Estim Creat Clear Calc Estimated GFR Glucose POC Capillary Glucose 263 H Calcium Total Bilirubin AST ALT Alkaline Phosphatase NT-Pro-B Natriuret Pep 3220 H Total Protein Albumin Stl Occult Blood (IFOB) Negative C. difficile (PCR) Negative 07/20/25 07/20/25 07/21/25 16:36 19:51 04:57 WBC 10.7 H RBC 3.24 L Hgb 9.0 L Hct 30.8 L MCV 95.1 MCH 27.8 MCHC 29.2 L RDW 18.7 H Plt Count 218 MPV 11.8 H Puncture Site ABG pH ABG pCO2 ABG pO2 ABG PO2/FiO2 Ratio ABG HCO3 ABG O2 Saturation ABG O2 Content ABG Base Excess A-a Gradient Oxyhemoglobin Carboxyhemoglobin Methemoglobin Reduced Hemoglobin Total Hemoglobin O2 Delivery Device O2 Liters/Min FiO2 Expiratory Pressure Inspiratory Pressure Sodium 132 L Potassium 4.8 Chloride 104 Carbon Dioxide 29 Anion Gap -1 L BUN 15 Creatinine 0.84 Estim Creat Clear Calc 48 Estimated GFR > 60 Glucose 167 H POC Capillary Glucose 239 H 193 H Calcium 8.8 Total Bilirubin 0.4 AST 22 ALT 22 Alkaline Phosphatase 171 H NT-Pro-B Natriuret Pep Total Protein 5.3 L Albumin 2.8 L Stl Occult Blood (IFOB) C. difficile (PCR) 07/21/25 07/21/25 07/21/25 05:32 08:04 08:54 WBC RBC Hgb Hct MCV MCH MCHC RDW Plt Count MPV Puncture Site Right brachial Right radial ABG pH 7.227 L* 7.257 L* ABG pCO2 62.1 H* 62.0 H* ABG pO2 68.7 L 91.9 ABG PO2/FiO2 Ratio 2.45 2.30 ABG HCO3 25.2 27.0 H ABG O2 Saturation 89.8 L 95.6 ABG O2 Content 12.7 L 13.5 L ABG Base Excess -2.9 -0.8 A-a Gradient 57.7 122.0 Oxyhemoglobin 90.0 94.8 Carboxyhemoglobin 1.6 Methemoglobin 0.3 Reduced Hemoglobin 8.1 H Total Hemoglobin 10.0 L 10.0 L O2 Delivery Device Nasal cannula Bipap O2 Liters/Min 2.0 Not Reportable FiO2 28 40 Expiratory Pressure 7 Inspiratory Pressure 15 Sodium Potassium Chloride Carbon Dioxide Anion Gap BUN Creatinine Estim Creat Clear Calc Estimated GFR Glucose POC Capillary Glucose 162 H Calcium Total Bilirubin AST ALT Alkaline Phosphatase NT-Pro-B Natriuret Pep Total Protein Albumin Stl Occult Blood (IFOB) C. difficile (PCR) Quality VTE Prophylaxis VTE prophylaxis: mechanical ordered
[2025-07-21 09:38] LABS: Procalcitonin 0.1 ng/mL
[2025-07-21] MEDS: PANTOPRAZOLE SODIUM IV 40 MG VIAL IV PUSH (09:46)
[2025-07-21 10:08] LABS: Alveolar/Arterial O2 Gradient 80.5 mmHg; Fractional Inspired Oxygen 30 %; HCO3 ABG 27.8 mEq/l (22.0-26.0); Oxygen Content ABG 12.4 %vol (16.0-22.0); Oxygen Saturation ABG 93.2 % (95.0-100.0); PCO2 ABG 52.9 mmHg (35.0-45.0); PO2 ABG 71.2 mmHg (80.0-100.0); PO2 FiO2 Ratio Arterial Blood 2.37 %
[2025-07-21 10:11] LABS: Modified Allen's Test Pass; Site Drawn RIGHT RADIAL
[2025-07-21] MEDS: FUROSEMIDE INJ 40 MG/4 ML VIAL IV PUSH (13:40)
--- NOTE | 2025-07-21 13:43 | PCPTNOTE ---
The patient treatment was not able to be completed on 07/21/2025 due to patient transferring from [address] [place] [address] Surg. to ICU and patient on continuous BiPAP. Patient not appropriate for therapy at this time. Will plan to continue treatment per plan of care.
--- NOTE | 2025-07-21 14:51 | PCOTNOTE ---
Patient unable to be seen for therapy services this date. Patient has had a declined in medical condition, moved to the ICU and on BiPapp at this time. Will continue to follow for updated status.
[2025-07-21] MEDS: ACETAMINOPHEN 325 MG TABLET 650 MG PO (21:37)
--- NOTE | 2025-07-21 23:05 | PC.NURSE ---
2139 Pt continually pulling on bipap face mask, removing it or becoming disconnected. Placed pt on 2L NC and attempted to explain disease process multiple times to patient, including labs, why she needs to wear bipap, and what can happen if she doesn't. Patient can answer orientation questions appropriately, but keeps stating she doesn't understand what I am telling her. happened to call and this nurse explained the situation to him. He statesjust tell her she needs to wear it. This nurse explained every nurse from the previous shift and current has been in there to replace the mask and has explained that to her. states tell her I said she has to. This nurse states she will try that, but that I cannot force her to keep it on. This nurse explained to I would call him if she still wont wear it, and would he be willing to come in then. elects to come in now.
--- NOTE | 2025-07-21 23:12 | PC.NURSE ---
Patient not using incentive spirometer while on bipap.
[2025-07-22] VITALS (57 sets, daily range): BP systolic 110–163; BP diastolic 59–94; PULSE 61–109; RESP 14–36; TEMP 36.6–37.2; O2SAT 94–100
[2025-07-22] MEDS: ACETAMINOPHEN 325 MG TABLET 650 MG PO ×2 (03:18→20:34)
[2025-07-22 05:41] LABS: Hematocrit 26.9 % (37.0-47.0); Hemoglobin 8.0 g/dL (12.0-15.0); Mean Corpuscular HGB Conc 29.7 g/dl (32-36); Mean Corpuscular Hemoglobin 27.9 pg (26-34); Mean Corpuscular Volume 93.7 fl (80-100); Platelet Count Result 233 k/mm3 (150-375); Red Blood Count 2.87 M/mm3 (4.2-5.4); White Blood Count 9.2 K/mm3 (4.5-10.0)
[2025-07-22] MEDS: CENTRAL LINE FLUSH 10 ML IV PUSH ×3 (05:52→22:37)
[2025-07-22 05:58] LABS: Alanine Aminotransferase 19 U/L (6-35); Albumin Level 2.8 g/dL (3.5-5.1); Alkaline Phosphatase 160 U/L (38-126); Anion Gap 2 mmol/L (4-12); Aspartate Amino Transferase 24 U/L (14-36); Bilirubin,Total 0.6 mg/dL (0.2-1.3); Blood Urea Nitrogen 19 mg/dL (7-17); Calcium 8.6 mg/dL (8.4-10.2); Carbon Dioxide 31 mmol/L (22-30); Chloride 102 mmol/L (98-107); Estimated CRCL calculation 45 ml/min; Estimated Glomerular Filt Rate > 60; Glucose 77 mg/dL (65-110); Magnesium 1.7 mg/dL (1.6-2.3); Potassium 3.3 mmol/L (3.4-5.0); Sodium 135 mmol/L (137-145); Total Protein 5.0 g/dL (6.3-8.2)
[2025-07-22] MEDS: CEFEPIME 2 GM in SODIUM CHLORIDE 0.9% IV 50 ML 100 ML IVPB ×2 (05:59→18:00)
[2025-07-22 06:00] LABS: Alveolar/Arterial O2 Gradient 81.3 mmHg; Carboxyhemoglobin 1.5 % THb (0-2.0); Fractional Inspired Oxygen 30 %; HCO3 ABG 28.2 mEq/l (22.0-26.0); Methemoglobin ABG 0.3 %THb (0-1.5); Oxygen Content ABG 12.0 %vol (16.0-22.0); Oxygen Saturation ABG 97.5 % (95.0-100.0); PCO2 ABG 36.5 mmHg (35.0-45.0); PO2 ABG 89.7 mmHg (80.0-100.0); PO2 FiO2 Ratio Arterial Blood 2.99 %; Reduced Hemoglobin 2.6 %THb (0-5.0)
[2025-07-22 06:01] LABS: Site Drawn RIGHT BRACHIAL
[2025-07-22 06:02] LABS: Non-Invasive Expiratory Pressure 5 CMH2O; Non-Invasive Inspiratory Pressure 20 CMH2O; Non-Invasive Vent Rate 4 /MIN
[2025-07-22] MEDS: KCL 20 MEQ/SW 100 ML 100 ML 50 MEQ IVPB (08:00)
--- NOTE | 2025-07-22 08:27 | WPDINTPN ---
Progress Note: A&P Assessment and Plan (1) Acute and chronic respiratory failure: Code(s): J96.20 - Acute and chronic respiratory failure, unspecified whether with hypoxia or hypercapnia Status: Acute Assessment and Plan: Acute on chronic hypoxic and hypercapnic respiratory failure likely related to multifactorial issues, patient has a history of COPD, pulmonary hypertension, CHF, sarcoidosis, interstitial lung disease ABG reviewed and exam as above Patient was on BiPAP and it has been weaned to room air this morning. Continue BiPAP p.r.n. and at night. Continue Lasix Incentive spirometry, up in chair Continue broad-spectrum antibiotics Continue steroid and bronchodilators (2) Ileus: Code(s): K56.7 - Ileus, unspecified Status: Acute Assessment and Plan: Patient was managed for ileus earlier in the course of the hospitalization. She had NG tube in which was removed after couple days as improved 07/14 CT abdomen pelvis did not show any obstruction Bowel sounds are decreased. No evidence of nausea vomiting or diarrhea Start diet Monitor (3) Encephalopathy: Code(s): G93.40 - Encephalopathy, unspecified Status: Acute Assessment and Plan: Likely related to hypercapnic respiratory failure. She had a similar presentation when she came to the hospital She is awake and arousable enough to protect her airway at this time. She had head CTs on 07/07 and 07/10 which showed No acute intracranial abnormality Ammonia levels were normal <9. Now resolved. Monitor. Avoid sedative (4) Sepsis: Code(s): A41.9 - Sepsis, unspecified organism Status: Acute Assessment and Plan: Patient presented with a fall, altered mental status, urinary tract infection -07/07: Urine cultures growing Enterobacter cloaca and Proteus penneri, both of them a susceptible to cefepime. Patient completed course of antibiotics -07/07: Blood cultures no growth x2 -07/10: Urine Legionella and streptococcal antigen pending 07/21 overnight patient will be started on vancomycin and cefepime. She is afebrile her WBC is not significantly increased. Her procalcitonin level was only 0.1 Presentation more consistent with CHF and hypoventilation rather than pneumonia.. Blood cultures have been ordered and pending. Will deescalate in 48 hours (5) Acute exacerbation of chronic obstructive pulmonary disease: Code(s): J44.1 - Chronic obstructive pulmonary disease with (acute) exacerbation Status: Acute Assessment and Plan: Oxygen therapy as above. P.r.n. bronchodilators. On home dose of steroid Antibiotics as above (6) UTI (urinary tract infection): Code(s): N39.0 - Urinary tract infection, site not specified Status: Acute Assessment and Plan: Continue antibiotics as above, urine culture as above (7) Paroxysmal atrial fibrillation: Code(s): I48.0 - Paroxysmal atrial fibrillation Status: Chronic Assessment and Plan: Patient with history of paroxysmal AFib with intermittent rapid ventricular response, she does nonsustained tachycardia -patient was started on amiodarone overnight Patient was Restarted on sotalol after discussion with Cardiology, amiodarone was turned off. Later due to ileus p.o. medications. 07/14 due to frequent tachycardia patient was started on Cardizem infusion. She was on rivaroxaban but was held as patient was NPO, Also her anticoagulation was stopped by Cardiology as she has had a fall. Dr. Allen discussed with Cardiology regarding anticoagulation, Dr. Sorensen, stated that her in the mostly is atrial tachycardia and not atrial fibrillation and the risk for strokes is much decreased, he would like to wait on anticoagulation. Case was discussed with Dr. Holly. Plan to resume sotalol today. If patient tolerates will transition to sotalol and p.r.n. Lopressor and get her off Cardizem infusion. 07/16 continue p.o. sotalol. Patient is off Cardizem infusion. Continue IV p.r.n. Lopressor.. Continue Xarelto. If patient is unable to tolerate p.o. 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: Qualifiers: Diabetes mellitus custodial insulin use: without custodial use Qualified Code(s): E11.21 - Type 2 diabetes mellitus with diabetic nephropathy Code(s): E11.21 - Type 2 diabetes mellitus with diabetic nephropathy Status: Acute Assessment and Plan: Continue SSI and Lantus (9) Sarcoid: Code(s): D86.9 - Sarcoidosis, unspecified Status: Acute Assessment and Plan: Recently diagnosed sarcoidosis and [facility] -patient's calcium level a within normal limits Continue home dose steroid (10) Pulmonary hypertension: Code(s): I27.20 - Pulmonary hypertension, unspecified Status: Acute Assessment and Plan: History of pulmonary hypertension, likely related to sleep apnea, sarcoidosis, interstitial lung disease, coronary artery disease, COPD/: Pulmonology 11/21/2022: Echocardiogram RVSP was 59 mmHg Cardiology following the patient for atrial fibrillation and atrial tachycardia 07/11/2025: Echocardiogram Summary 1. Definity contrast administered improved wall motion interpretation. 2. Left ventricular chamber dimension is normal. 3. Left ventricular systolic function is normal, estimated at 65-70. 4. There is moderate concentric increased left ventricular wall thickness. 5. The left ventricular diastolic function is abnormal. 6. E/e' 26 is significantly elevated. 7. Right ventricular systolic function is reduced based on an abnormal TAPSE 1.4 cm. 8. Left atrial chamber dimension is mildly enlarged. 9. There is moderate aortic valve sclerosis. 10. The mitral valve has a moderately calcified annulus. 11. There is trace mitral valve regurgitation. 12. There is moderate tricuspid valve regurgitation. 13. Severe pulmonary hypertension, estimated pulmonary arterial systolic pressure is 60 mmHg. 14. There is trace pulmonic regurgitation. (11) Fall: Code(s): W19.XXXA - Unspecified fall, initial encounter Status: Acute Assessment and Plan: Patient presented with a fall on 07/07 -status post fusion of C2-C6 at [facility] on 06/26/2025 for cervical myelopathy -07/07: CT cervical spine showed fluid collection at the surgical site. Neurosurgery at [facility] evaluated the patient, no drainage from her incision and hardware was well-positioned, the neurosurgery team had no additional recommendations. -PT OT has been ordered (12) Pressure ulcer: Code(s): L89.90 - Pressure ulcer of unspecified site, unspecified stage Status: Acute Assessment and Plan: Stage III pressure ulcer on coccyx and sacrum -wound care following Plan DVT prophylaxis: Lovenox Stress ulcer prophylaxis: Protonix Nutrition: Diet ordered Code Status: Full code Transfer out of ICU today Subjective Date/time seen: 07/22/25 Mental status improved significantly. Patient is now awake and alert. Patient wore BiPAP overnight and this morning after ABG review it was taken off and she was placed on nasal cannula. When I evaluated the patient she was on room air. She states she feels much better and does not remember much of what happened yesterday. She is hungry. She complains of headache and shoulder pain in the left side which is chronic. She also feels weak and tired. She denies any nausea vomiting chest pain shortness a breath abdominal pain dizziness lightheadedness. All other systems were reviewed and were negative. Good urine output in response to Lasix. Afebrile. Review of Systems Review of Systems: All systems reviewed & are unremarkable except as noted in HPI and below Exam Narrative: General: Ill-appearing female, appears older than her stated age and weak. She is awake alert today HEENT:? pupils equal and reactive, sclera is clear, Neck:? Hard cervical collar in place Respiratory: Decreased air entry bilaterally no crackles or wheezing Cardiac:? Sinus bradycardia rate controlled Abdomen:? Soft, no tenderness on exam, bowel sounds are significantly decrease Extremities:? Bilateral upper and lower extremity edema, palpable pedal pulses on lower extremities Neuro:? AO x3, follows commands with all 4 extremities Skin:? Bruising noted on upper extremities Objective Data Vital Signs Vital Signs: Vital Signs - 24 hr 07/21/25 08:30 07/21/25 08:30 07/21/25 09:07 Temperature 36.0 C L Pulse Rate 86 64 Respiratory Rate 24 H Blood Pressure 106/89 Pulse Oximetry 99 100 Oxygen Delivery BiPAP Fraction of Inspired Oxygen 07/21/25 09:07 07/21/25 09:11 07/21/25 10:00 Temperature Pulse Rate 67 64 59 L Respiratory Rate 28 H Blood Pressure Pulse Oximetry 99 Oxygen Delivery BiPAP Fraction of Inspired Oxygen 07/21/25 10:00 07/21/25 10:18 07/21/25 10:58 Temperature 36.0 C L Pulse Rate 64 87 87 Respiratory Rate 19 26 H 26 H Blood Pressure 117/75 Pulse Oximetry 100 97 92 Oxygen Delivery BiPAP BiPAP Fraction of Inspired Oxygen 40 07/21/25 11:00 07/21/25 12:00 07/21/25 12:00 Temperature 36.1 C L Pulse Rate 55 L 54 L Respiratory Rate 21 H Blood Pressure 91/57 L Pulse Oximetry 100 100 Oxygen Delivery BiPAP Fraction of Inspired Oxygen 30 07/21/25 12:00 07/21/25 13:00 07/21/25 13:41 Temperature 36.2 C L 36.3 C L Pulse Rate 54 L 56 L 86 Respiratory Rate 20 17 18 Blood Pressure 99/54 L 92/53 L Pulse Oximetry 100 100 98 Oxygen Delivery BiPAP Fraction of Inspired Oxygen 07/21/25 14:00 07/21/25 14:00 07/21/25 15:00 Temperature 36.3 C L 36.7 C Pulse Rate 83 83 64 Respiratory Rate 20 17 Blood Pressure 140/94 H 119/64 Pulse Oximetry 99 100 Oxygen Delivery Fraction of Inspired Oxygen 07/21/25 15:41 07/21/25 16:00 07/21/25 16:00 Temperature 36.9 C Pulse Rate 67 67 Respiratory Rate 18 Blood Pressure 122/59 L Pulse Oximetry 100 100 Oxygen Delivery BiPAP Fraction of Inspired Oxygen 30 07/21/25 16:44 07/21/25 17:00 07/21/25 18:00 Temperature 37.0 C Pulse Rate 66 125 H 59 L Respiratory Rate 26 H 33 H Blood Pressure 116/68 Pulse Oximetry 94 100 Oxygen Delivery BiPAP Fraction of Inspired Oxygen 07/21/25 18:12 07/21/25 19:00 07/21/25 19:30 Temperature 37.1 C 37.1 C 37.2 C Pulse Rate 59 L 72 72 Respiratory Rate 21 H 15 21 H Blood Pressure 96/54 L 115/55 L Pulse Oximetry 100 100 Oxygen Delivery Fraction of Inspired Oxygen 07/21/25 19:45 07/21/25 20:00 07/21/25 20:00 Temperature 37.1 C 37.2 C Pulse Rate 74 72 68 Respiratory Rate 19 22 H Blood Pressure 125/78 Pulse Oximetry 97 100 Oxygen Delivery Fraction of Inspired Oxygen 07/21/25 20:01 07/21/25 20:02 07/21/25 20:15 Temperature 37.2 C 37.2 C Pulse Rate 71 95 65 Respiratory Rate 21 H 32 H 28 H Blood Pressure Pulse Oximetry 100 100 Oxygen Delivery BiPAP Fraction of Inspired Oxygen 07/21/25 20:30 07/21/25 20:45 07/21/25 21:00 Temperature 37.2 C 37.1 C Pulse Rate 90 68 Respiratory Rate 22 H 22 H Blood Pressure Pulse Oximetry 100 99 Oxygen Delivery BiPAP Fraction of Inspired Oxygen 30 07/21/25 21:00 07/21/25 21:01 07/21/25 21:15 Temperature 37.2 C 37.2 C 37.1 C Pulse Rate 86 84 101 H Respiratory Rate 18 17 23 H Blood Pressure 131/87 Pulse Oximetry 100 100 97 Oxygen Delivery Fraction of Inspired Oxygen 07/21/25 21:30 07/21/25 21:45 07/21/25 22:00 Temperature 37.1 C 37.1 C Pulse Rate 103 H 101 H 97 Respiratory Rate 26 H 21 H Blood Pressure Pulse Oximetry 93 98 Oxygen Delivery Fraction of Inspired Oxygen 07/21/25 22:00 07/21/25 22:01 07/21/25 22:25 Temperature 37.1 C 37.1 C 37.2 C Pulse Rate 96 100 81 Respiratory Rate Blood Pressure 125/84 Pulse Oximetry 100 100 100 Oxygen Delivery Fraction of Inspired Oxygen 07/21/25 22:30 07/21/25 22:58 07/21/25 23:11 Temperature 37.2 C 37.1 C Pulse Rate 69 72 87 Respiratory Rate 25 H 33 H Blood Pressure Pulse Oximetry 100 100 100 Oxygen Delivery BiPAP Fraction of Inspired Oxygen 07/21/25 23:18 07/21/25 23:31 07/21/25 23:55 Temperature 37.0 C 36.9 C 36.9 C Pulse Rate 75 65 92 Respiratory Rate 19 28 H 31 H Blood Pressure Pulse Oximetry 96 100 98 Oxygen Delivery Fraction of Inspired Oxygen 07/22/25 00:00 07/22/25 00:00 07/22/25 00:01 Temperature 36.8 C Pulse Rate 73 87 Respiratory Rate 24 H Blood Pressure 118/78 Pulse Oximetry 99 99 Oxygen Delivery BiPAP Fraction of Inspired Oxygen 30 07/22/25 00:18 07/22/25 00:30 07/22/25 00:45 Temperature 36.8 C 36.8 C 36.8 C Pulse Rate 87 94 66 Respiratory Rate 17 19 15 Blood Pressure 110/63 Pulse Oximetry 100 99 100 Oxygen Delivery Fraction of Inspired Oxygen 07/22/25 01:00 07/22/25 01:08 07/22/25 01:15 Temperature 36.9 C 36.9 C 36.9 C Pulse Rate 64 77 74 Respiratory Rate 18 20 23 H Blood Pressure 110/63 Pulse Oximetry 99 100 100 Oxygen Delivery Fraction of Inspired Oxygen 07/22/25 01:30 07/22/25 01:45 07/22/25 02:00 Temperature 36.9 C 36.9 C 36.9 C Pulse Rate 61 76 98 Respiratory Rate 21 H 25 H 21 H Blood Pressure Pulse Oximetry 100 100 100 Oxygen Delivery Fraction of Inspired Oxygen 07/22/25 02:00 07/22/25 02:01 07/22/25 02:02 Temperature 36.8 C 36.9 C Pulse Rate 78 98 86 Respiratory Rate 15 17 Blood Pressure 129/94 H Pulse Oximetry 100 100 Oxygen Delivery Fraction of Inspired Oxygen 07/22/25 02:12 07/22/25 02:15 07/22/25 02:30 Temperature 36.9 C 36.9 C Pulse Rate 89 95 94 Respiratory Rate 30 H 20 18 Blood Pressure Pulse Oximetry 100 100 100 Oxygen Delivery BiPAP Fraction of Inspired Oxygen 07/22/25 02:45 07/22/25 03:00 07/22/25 03:04 Temperature 36.9 C 36.9 C 36.9 C Pulse Rate 94 80 89 Respiratory Rate 18 15 28 H Blood Pressure 150/85 H Pulse Oximetry 100 100 Oxygen Delivery Fraction of Inspired Oxygen 07/22/25 03:05 07/22/25 03:15 07/22/25 03:30 Temperature 36.9 C 36.9 C 36.9 C Pulse Rate 94 87 68 Respiratory Rate 22 H 28 H 22 H Blood Pressure Pulse Oximetry 98 100 Oxygen Delivery Fraction of Inspired Oxygen 07/22/25 03:45 07/22/25 04:00 07/22/25 04:00 Temperature 37.0 C Pulse Rate 68 66 Respiratory Rate 28 H Blood Pressure Pulse Oximetry 100 100 Oxygen Delivery BiPAP Fraction of Inspired Oxygen 30 07/22/25 04:00 07/22/25 04:01 07/22/25 04:15 Temperature 37.1 C 37.1 C 37.0 C Pulse Rate 71 95 95 Respiratory Rate 19 16 19 Blood Pressure 129/63 Pulse Oximetry 100 100 99 Oxygen Delivery Fraction of Inspired Oxygen 07/22/25 04:30 07/22/25 04:45 07/22/25 05:00 Temperature 37.0 C 37.0 C 37.0 C Pulse Rate 69 82 95 Respiratory Rate 15 18 25 H Blood Pressure Pulse Oximetry 100 97 100 Oxygen Delivery Fraction of Inspired Oxygen 07/22/25 05:01 07/22/25 05:15 07/22/25 05:30 Temperature 37.0 C 37.0 C 36.9 C Pulse Rate 99 89 70 Respiratory Rate 20 25 H 19 Blood Pressure 124/85 Pulse Oximetry 100 100 100 Oxygen Delivery Fraction of Inspired Oxygen 07/22/25 05:35 07/22/25 05:45 07/22/25 06:00 Temperature 37.0 C Pulse Rate 68 70 95 Respiratory Rate 14 19 Blood Pressure Pulse Oximetry 100 100 Oxygen Delivery BiPAP Fraction of Inspired Oxygen 07/22/25 06:00 07/22/25 06:01 07/22/25 06:15 Temperature 37.0 C 37.0 C 36.9 C Pulse Rate 94 98 94 Respiratory Rate 23 H 36 H 25 H Blood Pressure 146/85 H Pulse Oximetry 100 100 Oxygen Delivery Fraction of Inspired Oxygen 07/22/25 06:30 07/22/25 06:45 07/22/25 07:00 Temperature 36.8 C 36.7 C 36.7 C Pulse Rate 100 102 H 104 H Respiratory Rate 31 H 24 H 24 H Blood Pressure 147/81 H Pulse Oximetry 99 100 99 Oxygen Delivery Fraction of Inspired Oxygen 07/22/25 07:00 07/22/25 07:01 07/22/25 07:15 Temperature 36.7 C 36.7 C 36.7 C Pulse Rate 104 H 91 108 H Respiratory Rate 30 H 32 H 23 H Blood Pressure 147/81 H Pulse Oximetry 100 97 94 Oxygen Delivery Fraction of Inspired Oxygen 07/22/25 08:00 Temperature 36.9 C Pulse Rate 102 H Respiratory Rate Blood Pressure 153/76 H Pulse Oximetry 96 Oxygen Delivery Fraction of Inspired Oxygen Intake/Output Intake/Output: Intake & Output 07/19/25 07/20/25 07/21/25 07/22/25 23:59 23:59 23:59 23:59 Intake Total 1260 430 600 Output Total 200 638 9343 1000 Balance 970 -320 -1100 -1000 Meds/Results Medications: Active Medications Generic Name Dose Route Start Last Admin Trade Name Freq PRN Reason Stop Dose Admin Acetaminophen 650 mg 07/07/25 08:10 07/22/25 03:18 Acetaminophen 325 Mg Tablet PO 650 mg Q4H PRN Administration Mild Pain (1-3) or Fever Acetaminophen 650 mg 07/10/25 17:36 07/10/25 21:18 Acetaminophen 650 Mg Suppository RECTAL 650 mg Q6H PRN Administration Fever Alteplase, Recombinant 2 mg 07/19/25 13:00 07/19/25 13:51 Alteplase 2 Mg Vial (Cathflo) IV PUSH 2 mg ONCE PRN Administration Line Occlusion Dextrose 12.5 gm 07/10/25 15:08 Dextrose 50% 25 Gm/50 Ml Syringe IV PUSH PRN PRN Hypoglycemia Protocol Glucagon 1 mg 07/10/25 15:08 Glucagon For Inj 1 Mg Vial IM PRN PRN Hypoglycemia Protocol Glucose 15 gm 07/10/25 15:08 Glucose Oral Gel 15 Gm Of Glucse In 37.5 Gm Tube PO PRN PRN Hypoglycemia Protocol Dextrose 1,000 mls @ 100 mls/hr 07/10/25 15:08 Dextrose 5% 1,000 Ml IVPB PRN PRN Hypoglycemia Protocol Cefepime HCl 2 gm/ Sodium 50 mls @ 100 mls/hr 07/21/25 07:00 07/22/25 05:59 Chloride IVPB 100 mls/hr Q12H IVONE Administration Vancomycin HCl 1,500 mg in 500 mls @ 250 mls/hr 07/22/25 09:00 Vancomycin 1,500 Mg/Ns 500 Ml IVPB Q24H IVONE Potassium Phosphate 20 mmol/ 256.6667 mls @ 64.167 mls/hr 07/22/25 09:30 Sodium Chloride IVPB 07/22/25 13:29 ONCE ONE Potassium Chloride 100 mls @ 50 mls/hr 07/22/25 07:23 Kcl 20 Meq/Sw 100 Ml IVPB 07/22/25 09:22 ONCE ONE Insulin Aspart 3 - 6 units 07/10/25 17:00 07/22/25 05:29 Insulin Aspart (*Bkc) 100 Units/Ml SUB-Q Not Given Q4HR [facility] Protocol Insulin Glargine 10 units 07/12/25 09:00 07/21/25 09:12 Insulin Glargine (*Bkc) 100 Units/Ml SUB-Q 10 units DAILY IVONE Administration Ipratropium [place] 0.5 mg 07/14/25 08:25 Ipratropium Br 0.02% Inh Soln 0.5 Mg/2.5 Ml Vial INHALATION Q6HRT PRN Wheezing Levalbuterol HCl 0.63 mg 07/14/25 08:25 Levalbuterol Neb 1.25 Mg/3 Ml INHALATION Q6HRT PRN Wheezing Loperamide HCl 2 mg 07/07/25 14:57 07/19/25 06:45 Loperamide Hcl 2 Mg Capsule PO 2 mg PRN PRN Administration Diarrhea Methylprednisolone Sodium Succinate 10 mg 07/21/25 09:55 07/21/25 11:17 Methylprednisolone Sod Succ 40 Mg Vial IV PUSH 10 mg QAM IVONE Administration Metoprolol Tartrate 5 mg 07/15/25 11:44 Metoprolol Tartrate Inj 5 Mg/5 Ml Vial IV PUSH Q3H PRN HR > 120 sustained Pantoprazole Sodium 40 mg 07/21/25 09:40 07/21/25 09:46 Pantoprazole Sodium Iv 40 Mg Vial IV PUSH 40 mg QAM IVONE Administration Potassium Chloride 20 meq 07/18/25 09:00 07/21/25 09:11 Potassium Chloride 20 Meq Packet (For Liquid) PO Not Given DAILY IVONE Pramipexole Dihydrochloride 0.5 mg 07/07/25 21:00 07/20/25 20:35 Pramipexole 0.5 Mg Tablet PO 0.5 mg On Hold: 07/21/25 08:16 HS IVONE Administration Pravastatin Sodium 10 mg 07/08/25 09:00 07/21/25 09:11 Pravastatin Sodium 10 Mg Tablet BY MOUTH Not Given DAILY IVONE Rivaroxaban 20 mg 07/17/25 17:00 07/21/25 16:12 Rivaroxaban 20 Mg Tablet PO Not Given DAILY@1700 IVONE Sodium Chloride 20 ml 07/10/25 20:33 07/18/25 06:09 Central Line Flush IV PUSH 20 ml PRN PRN Administration after blood draws Sodium Chloride 10 ml 07/13/25 14:00 07/22/25 05:52 Central Line Flush IV PUSH 10 ml Q8HR IVONE Administration Sodium Chloride 10 ml 07/13/25 08:09 Central Line Flush IV PUSH PRN PRN with TPN bag changes Sodium Chloride 20 ml 07/13/25 08:09 Central Line Flush IV PUSH PRN PRN after blood draws Sotalol HCl 80 mg 07/16/25 21:00 07/21/25 09:11 Sotalol Hcl 80 Mg Tablet PO Not Given Q12HR IVONE Trimethobenzamide HCl 200 mg 07/07/25 14:56 07/12/25 04:26 Trimethobenzamide Hcl 200 Mg/2 Ml Vial IM 200 mg Q6H PRN Administration Nausea And Vomiting Radiology Results: ITS Impressions Cervical Spine CT 07/07/25 06:30 IMPRESSION: HEAD: 1. No acute intracranial findings. 2. Bilateral mastoiditis. C-SPINE: 1. No acute fracture. 2. Ill-defined fluid and postoperative changes posterior to upper cervical spine. 3. Extensive bilateral upper lung airspace disease, and left pleural effusion. Chest/Abdomen/Pelvis CT 07/07/25 07:13 IMPRESSION: 1. Diffuse lung disease, likely a combination of pneumonia in the upper lobes and left lower lobe and mild pulmonary edema. 2. Small pleural effusions. 3. Colitis involving the rectosigmoid. Head CT 07/10/25 15:36 Impression: 1.No acute intracranial abnormality. Abdomen/Pelvis CT 07/13/25 13:46 IMPRESSION: 1. Increased size of pleural effusions which are small to moderate compared to small on the previous exam. Bibasilar atelectatic changes with possible developing consolidation and/or vascular congestion. 2. Fluid and gas dilated rectosigmoid region with findings suggestive of mild colitis and diarrhea process. 3. Extraperitoneal findings of uncertain significance possibly associated with the air foci associated with injections. Correlate clinically to exclude active inflammatory/infectious process in the extra peritoneal soft tissues. NG Tube Placement 07/13/25 14:43 IMPRESSION: 1. Fluoroscopy utilized during placement of a nasogastric tube with distal tip in proximal side port in the body the stomach. Abdomen X-Ray 07/17/25 08:30 IMPRESSION: Unchanged exam compared to yesterday. Chest X-Ray 07/21/25 06:40 IMPRESSION: 1. Worsening bibasilar atelectasis and/or airspace disease with small pleural effusions. 2. Persistent interstitial pulmonary edema and/or pneumonitis. Labs Labs: Laboratory Results - last 24 hr 07/20/25 07/21/25 07/21/25 16:01 08:53 08:54 WBC RBC Hgb Hct MCV MCH MCHC RDW Plt Count MPV Puncture Site Right radial ABG pH 7.257 L* ABG pCO2 62.0 H* ABG pO2 91.9 ABG PO2/FiO2 Ratio 2.30 ABG HCO3 27.0 H ABG O2 Saturation 95.6 ABG O2 Content 13.5 L ABG Base Excess -0.8 A-a Gradient 122.0 Oxyhemoglobin 94.8 Carboxyhemoglobin Methemoglobin Reduced Hemoglobin Total Hemoglobin 10.0 L O2 Delivery Device Bipap O2 Liters/Min Not Reportable Vent Rate FiO2 40 Expiratory Pressure 7 Inspiratory Pressure 15 Sodium Potassium Chloride Carbon Dioxide Anion Gap BUN Creatinine Estim Creat Clear Calc Estimated GFR Glucose POC Capillary Glucose Lactic Acid 0.6 L Calcium Phosphorus Magnesium Total Bilirubin AST ALT Alkaline Phosphatase Total Protein Albumin Procalcitonin 0.1 Stool Neutral Fats Cancelled 07/21/25 07/21/25 07/21/25 10:08 11:20 16:30 WBC RBC Hgb Hct MCV MCH MCHC RDW Plt Count MPV Puncture Site Right radial ABG pH 7.339 L ABG pCO2 52.9 H ABG pO2 71.2 L ABG PO2/FiO2 Ratio 2.37 ABG HCO3 27.8 H ABG O2 Saturation 93.2 L ABG O2 Content 12.4 L ABG Base Excess 1.5 A-a Gradient 80.5 Oxyhemoglobin 92.4 Carboxyhemoglobin Methemoglobin Reduced Hemoglobin Total Hemoglobin 9.5 L O2 Delivery Device Bipap O2 Liters/Min Not Reportable Vent Rate FiO2 30 Expiratory Pressure 5 Inspiratory Pressure 20 Sodium Potassium Chloride Carbon Dioxide Anion Gap BUN Creatinine Estim Creat Clear Calc Estimated GFR Glucose POC Capillary Glucose 142 H 145 H Lactic Acid Calcium Phosphorus Magnesium Total Bilirubin AST ALT Alkaline Phosphatase Total Protein Albumin Procalcitonin Stool Neutral Fats 07/21/25 07/22/25 07/22/25 21:32 00:07 05:10 WBC 9.2 RBC 2.87 L Hgb 8.0 L Hct 26.9 L MCV 93.7 MCH 27.9 MCHC 29.7 L RDW 19.2 H Plt Count 233 MPV 12.2 H Puncture Site ABG pH ABG pCO2 ABG pO2 ABG PO2/FiO2 Ratio ABG HCO3 ABG O2 Saturation ABG O2 Content ABG Base Excess A-a Gradient Oxyhemoglobin Carboxyhemoglobin Methemoglobin Reduced Hemoglobin Total Hemoglobin O2 Delivery Device O2 Liters/Min Vent Rate FiO2 Expiratory Pressure Inspiratory Pressure Sodium 135 L Potassium 3.3 L Chloride 102 Carbon Dioxide 31 H Anion Gap 2 L BUN 19 H Creatinine 0.90 Estim Creat Clear Calc 45 Estimated GFR > 60 Glucose 77 POC Capillary Glucose 133 H 114 H Lactic Acid Calcium 8.6 Phosphorus 2.3 L Magnesium 1.7 Total Bilirubin 0.6 AST 24 ALT 19 Alkaline Phosphatase 160 H Total Protein 5.0 L Albumin 2.8 L Procalcitonin Stool Neutral Fats 07/22/25 07/22/25 05:49 07:14 WBC RBC Hgb Hct MCV MCH MCHC RDW Plt Count MPV Puncture Site Right brachial ABG pH 7.506 H* ABG pCO2 36.5 ABG pO2 89.7 ABG PO2/FiO2 Ratio 2.99 ABG HCO3 28.2 H ABG O2 Saturation 97.5 ABG O2 Content 12.0 L ABG Base Excess 4.9 A-a Gradient 81.3 Oxyhemoglobin 95.6 Carboxyhemoglobin 1.5 Methemoglobin 0.3 Reduced Hemoglobin 2.6 Total Hemoglobin 8.8 L O2 Delivery Device Non-invasive vent O2 Liters/Min Not Reportable Vent Rate 4 FiO2 30 Expiratory Pressure 5 Inspiratory Pressure 20 Sodium Potassium Chloride Carbon Dioxide Anion Gap BUN Creatinine Estim Creat Clear Calc Estimated GFR Glucose POC Capillary Glucose 118 H Lactic Acid Calcium Phosphorus Magnesium Total Bilirubin AST ALT Alkaline Phosphatase Total Protein Albumin Procalcitonin Stool Neutral Fats Quality VTE Prophylaxis VTE prophylaxis: mechanical ordered
[2025-07-22] MEDS: INSULIN GLARGINE (*BKC) 100 UNITS/ML 10 UNITS SUB-Q (08:49)
[2025-07-22] MEDS: POTASSIUM CHLORIDE 20 MEQ PACKET (FOR LIQUID) PO (09:08)
[2025-07-22] MEDS: PRAVASTATIN SODIUM 10 MG TABLET BY MOUTH (09:09)
[2025-07-22] MEDS: SOTALOL HCL 80 MG TABLET PO ×2 (09:09→20:34)
[2025-07-22] MEDS: PANTOPRAZOLE SODIUM IV 40 MG VIAL IV PUSH (09:09)
[2025-07-22] MEDS: POTASSIUM PHOS,M-BASIC-D-BASIC 20 MMOL in SODIUM CHLORIDE 0.9% IV 250 ML 64.17 MMOL IVPB (11:07)
[2025-07-22] MEDS: VANCOMYCIN 1,500 MG/NS 500 ML 1,500 MG/500 ML BAG 250 MG IVPB (11:07)
[2025-07-22] MEDS: RIVAROXABAN 20 MG TABLET PO (16:07)
[2025-07-22] MEDS: INSULIN ASPART (*BKC) 100 UNITS/ML SUB-Q (20:34)
[2025-07-23] VITALS (19 sets, daily range): BP systolic 117–148; BP diastolic 52–67; PULSE 58–96; RESP 18–28; TEMP 36.4–37.2; O2SAT 95–100; BMI 10.0
[2025-07-23 05:13] LABS: Alveolar/Arterial O2 Gradient 73.0 mmHg; Carboxyhemoglobin 1.2 % THb (0-2.0); Fractional Inspired Oxygen 30 %; HCO3 ABG 24.6 mEq/l (22.0-26.0); Methemoglobin ABG 0.3 %THb (0-1.5); Oxygen Content ABG 13.6 %vol (16.0-22.0); Oxygen Saturation ABG 97.5 % (95.0-100.0); PCO2 ABG 38.2 mmHg (35.0-45.0); PO2 ABG 96.0 mmHg (80.0-100.0); PO2 FiO2 Ratio Arterial Blood 3.20 %; Reduced Hemoglobin 2.8 %THb (0-5.0)
[2025-07-23 05:21] LABS: Modified Allen's Test Pass; Site Drawn RIGHT RADIAL
--- NOTE | 2025-07-23 05:32 | PC.NURSE ---
pt was on bipap from 11p.m to 5am
[2025-07-23] MEDS: PANTOPRAZOLE SODIUM IV 40 MG VIAL IV PUSH (08:12)
[2025-07-23] MEDS: INSULIN GLARGINE (*BKC) 100 UNITS/ML 10 UNITS SUB-Q (08:13)
[2025-07-23] MEDS: CEFEPIME 2 GM in SODIUM CHLORIDE 0.9% IV 50 ML 100 ML IVPB ×2 (08:13→17:45)
[2025-07-23] MEDS: POTASSIUM CHLORIDE 20 MEQ PACKET (FOR LIQUID) PO (08:13)
[2025-07-23] MEDS: PRAVASTATIN SODIUM 10 MG TABLET BY MOUTH (08:14)
[2025-07-23] MEDS: SOTALOL HCL 80 MG TABLET PO ×2 (08:14→20:19)
[2025-07-23] MEDS: ACETAMINOPHEN 325 MG TABLET 650 MG PO ×2 (08:14→17:53)
[2025-07-23 10:15] LABS: Hematocrit 28.7 % (37.0-47.0); Hemoglobin 8.8 g/dL (12.0-15.0); Mean Corpuscular HGB Conc 30.7 g/dl (32-36); Mean Corpuscular Hemoglobin 28.7 pg (26-34); Mean Corpuscular Volume 93.5 fl (80-100); Platelet Count Result 281 k/mm3 (150-375); Red Blood Count 3.07 M/mm3 (4.2-5.4); White Blood Count 11.7 K/mm3 (4.5-10.0)
[2025-07-23 10:34] LABS: Alanine Aminotransferase 34 U/L (6-35); Albumin Level 2.9 g/dL (3.5-5.1); Alkaline Phosphatase 288 U/L (38-126); Anion Gap 2 mmol/L (4-12); Aspartate Amino Transferase 40 U/L (14-36); Bilirubin,Total 0.5 mg/dL (0.2-1.3); Blood Urea Nitrogen 24 mg/dL (7-17); Calcium 8.3 mg/dL (8.4-10.2); Carbon Dioxide 28 mmol/L (22-30); Chloride 103 mmol/L (98-107); Estimated CRCL calculation 40 ml/min; Estimated Glomerular Filt Rate 54; Glucose 243 mg/dL (65-110); Magnesium 1.4 mg/dL (1.6-2.3); Potassium 4.0 mmol/L (3.4-5.0); Sodium 133 mmol/L (137-145); Total Protein 5.3 g/dL (6.3-8.2)
[2025-07-23] MEDS: VANCOMYCIN 1,500 MG/NS 500 ML 1,500 MG/500 ML BAG 250 MG IVPB (11:11)
[2025-07-23] MEDS: CENTRAL LINE FLUSH 10 ML IV PUSH ×2 (13:23→22:00)
[2025-07-23] MEDS: INSULIN ASPART (*BKC) 100 UNITS/ML SUB-Q ×2 (13:24→16:43)
--- NOTE | 2025-07-23 16:21 | PM.IMPN ---
Progress Note: A&P Assessment and Plan (1) Acute and chronic respiratory failure: Code(s): J96.20 - Acute and chronic respiratory failure, unspecified whether with hypoxia or hypercapnia Status: Acute Assessment and Plan: Acute on chronic hypoxic and hypercapnic respiratory failure likely related to multifactorial issues. Patient has a history of COPD, pulmonary hypertension, CHF, sarcoidosis, and interstitial lung disease ABG this morning normal at 7.43/38/96 on bipap Patient was on BiPAP overnight and it has been weaned to O2 nasal cannula Continue BiPAP p.r.n. and at night and with naps. Wean O2 as tolerated Sporadic Lasix use but almost daily. I/O: -7.6L. On lasix daily at home. Encourage incentive spirometry use. Continue to have patient up to the chair. Continue broad-spectrum antibiotics and bronchodilators. Oral Prednisone 10mg daily started 07/18 but patient became obtunded on 07/21 so changed to Soul-medrol Renal function and BP stable so will schedule Lasix. (2) Encephalopathy: Code(s): G93.40 - Encephalopathy, unspecified Status: Acute Assessment and Plan: Likely related to hypercapnic respiratory failure. She had a similar presentation when she came to the hospital. She was awake and arousable enough to protect her airway Head CTs on 07/07 and 07/10 showed no acute intracranial abnormality Ammonia level was <9. TSH normal. B12/Folate normal in May. Mental status better. She is tolerating BiPAP. Monitor. Avoid sedative (3) Sepsis: Code(s): A41.9 - Sepsis, unspecified organism Status: Acute Assessment and Plan: Patient presented with a fall and AMS and found to have a sepsis from UTI. Influenza, RSV, COVID PCR (07/07): negative UCx (07/07): Enterobacter cloaca and Proteus penneri, both susceptible to cefepime. BCx (07/07): Negative. Urine Legionella and streptococcal Ag (07/10): negative. MRSA nasal swab (07/10): positive. Resp Viral Panel (07/13): Negative. Stool Cx (07/16): Negative. CDiff (07/16, 07/20): Negative Patient completed course of antibiotics with last dose on 07/16. 07/21 overnight patient was started on vancomycin and cefepime. She is afebrile, her WBC is not significantly increased. Her procalcitonin level was only 0.1 Stool Cx (07/20): pending BCx (07/21): pending Presentation more consistent with CHF and hypoventilation rather than pneumonia. Will deescalate once BCx return. (4) Ileus: Code(s): K56.7 - Ileus, unspecified Status: Acute Assessment and Plan: Patient was managed for ileus earlier in the course of the hospitalization. She had NG tube which was removed after couple days as improved 07/14 CT abdomen pelvis did not show any obstruction Bowel sounds are decreased. No evidence of nausea vomiting or diarrhea so diet started Tolerating diet. Monitor (5) Acute exacerbation of chronic obstructive pulmonary disease: Code(s): J44.1 - Chronic obstructive pulmonary disease with (acute) exacerbation Status: Acute Assessment and Plan: Oxygen therapy as above. P.r.n. bronchodilators. Resume oral home dose of steroid when able Antibiotics as above (6) UTI (urinary tract infection): Code(s): N39.0 - Urinary tract infection, site not specified Status: Acute Assessment and Plan: As above (7) Paroxysmal atrial fibrillation: Code(s): I48.0 - Paroxysmal atrial fibrillation Status: Chronic Assessment and Plan: Patient with history of pAFib with intermittent RVR Patient was started on amiodarone IV. Patient was restarted on sotalol after discussion with Cardiology and amiodarone was stopped. Later due to ileus p.o. medications. 07/14 due to frequent tachycardia patient was started on Cardizem infusion. She was on rivaroxaban but was held as patient was NPO, Also her anticoagulation was stopped by Cardiology as she has had a fall. Dr. Allen discussed with Cardiology regarding anticoagulation, Dr. Sorensen, stated that her in the mostly is atrial tachycardia and not atrial fibrillation and the risk for strokes is much decreased, he would like to wait on anticoagulation. 07/15 Case was discussed with Dr. Holly. Plan to resume sotalol today. If patient tolerates will transition to sotalol and p.r.n. Lopressor and get her off Cardizem infusion. 07/16 continue p.o. sotalol. Patient is off Cardizem infusion. Continue IV p.r.n. Lopressor.. Continue Xarelto. If patient is unable to tolerate p.o. will switch to Lovenox Episodes of atrial tach but otherwise stable on Tele. 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 Continue AccuCheks covering with sliding scale. Hypoglycemia protocol available as needed. Morning glucose 94 so will back off on lantus but add mealtime novolog (9) Sarcoid: Code(s): D86.9 - Sarcoidosis, unspecified Status: Acute Assessment and Plan: Recently diagnosed sarcoidosis and [facility] -patient's calcium level a within normal limits Continue steroids (10) Pulmonary hypertension: Code(s): I27.20 - Pulmonary hypertension, unspecified Status: Acute Assessment and Plan: History of pulmonary hypertension, likely related to sleep apnea, sarcoidosis, interstitial lung disease, coronary artery disease, COPD 07/11/2025: Echocardiogram 1. Definity contrast administered improved wall motion interpretation. 2. Left ventricular chamber dimension is normal. 3. Left ventricular systolic function is normal, estimated at 65-70. 4. There is moderate concentric increased left ventricular wall thickness. 5. The left ventricular diastolic function is abnormal. 6. E/e' 26 is significantly elevated. 7. Right ventricular systolic function is reduced based on an abnormal TAPSE 1.4 cm. 8. Left atrial chamber dimension is mildly enlarged. 9. There is moderate aortic valve sclerosis. 10. The mitral valve has a moderately calcified annulus. 11. There is trace mitral valve regurgitation. 12. There is moderate tricuspid valve regurgitation. 13. Severe pulmonary hypertension, estimated pulmonary arterial systolic pressure is 60 mmHg. 14. There is trace pulmonic regurgitation. Cardiology following the patient for atrial fibrillation and atrial tachycardia (11) Fall: Code(s): W19.XXXA - Unspecified fall, initial encounter Status: Acute Assessment and Plan: Patient presented with a fall on 07/07 -status post fusion of C2-C6 at [facility] on 06/26/2025 for cervical myelopathy -07/07: CT cervical spine showed fluid collection at the surgical site. Neurosurgery at [facility] evaluated the patient, no drainage from her incision and hardware was well-positioned, the neurosurgery team had no additional recommendations. -PT OT has been ordered (12) Pressure ulcer: Code(s): L89.90 - Pressure ulcer of unspecified site, unspecified stage Status: Acute Assessment and Plan: Stage III pressure ulcer on coccyx and sacrum -wound care following Plan DVT prophylaxis: Xarelto Code Status: Full code Subjective Date/time seen: 07/23/25 16:21 Interval history: 75yo female with recent cervical fracture status post surgery, DM, iron deficiency anemia, AFib, CAD, HTN and dyslipidemia who presents to the hospital after being found down at a detention. Patient had a recent fall sustaining a cervical neck fracture and underwent surgery at [facility]. She was hospitalized for about 26 days. She was also noted to have hypercalcemia and an abnormal CT Chest. She underwent biopsy and was found to have sarcoid requiring prednisone 10 mg daily. She was discharged to [facility] on 07/04/25 but fell and was brought to [place] and admitted on 07/07 due to fall complicated by respiratory distress and transferred to ICU. Assuming care. Chart reviewed. She feels tires. She has been up to the chair. No CP. Feels SOB. Eating okay. Exam Narrative: AF 97.5 147/67 86 21 96% 2L Gen - NARD Neck - Hard cervical collar in place Chest - distant BS. nml RR CV - RRR S1/S2. Tele showing episodes of ATach Abd - Soft, NT/ND, Positive BS - Schmidt secured draining clear yellow urine Ext - trace pedal edema Neuro - Alert and appropriate. RODRIGUEZ Psych - Nml mood and affect Skin - Warm and dry. left forearm dried abrasion Objective Data Vital Signs Vital Signs: Vital Signs - 24 hr 07/22/25 18:00 07/22/25 20:00 07/22/25 20:00 Temperature 97.8 F Pulse Rate 95 94 Respiratory Rate 20 Blood Pressure 148/65 H Pulse Oximetry 100 100 Oxygen Delivery Nasal Cannula Oxygen Flow Rate 2 07/22/25 20:00 07/22/25 20:34 07/22/25 22:00 Temperature Pulse Rate 95 93 73 Respiratory Rate Blood Pressure Pulse Oximetry Oxygen Delivery Oxygen Flow Rate 07/22/25 23:06 07/23/25 00:00 07/23/25 00:00 Temperature 97.6 F Pulse Rate 58 L 60 Respiratory Rate 27 H Blood Pressure 120/61 Pulse Oximetry 100 100 Oxygen Delivery BiPAP Oxygen Flow Rate 07/23/25 02:00 07/23/25 03:33 07/23/25 04:00 Temperature Pulse Rate 64 68 Respiratory Rate Blood Pressure Pulse Oximetry 100 Oxygen Delivery BiPAP Oxygen Flow Rate 07/23/25 04:00 07/23/25 06:00 07/23/25 08:00 Temperature 97.7 F 97.5 F L Pulse Rate 58 L 66 63 Respiratory Rate 23 H 20 Blood Pressure 117/52 L 139/61 Pulse Oximetry 100 98 Oxygen Delivery Oxygen Flow Rate 07/23/25 08:00 07/23/25 08:00 07/23/25 08:14 Temperature Pulse Rate 77 82 Respiratory Rate Blood Pressure Pulse Oximetry 100 Oxygen Delivery Nasal Cannula Oxygen Flow Rate 2 07/23/25 09:03 07/23/25 09:23 07/23/25 10:00 Temperature Pulse Rate 80 Respiratory Rate Blood Pressure Pulse Oximetry 100 Oxygen Delivery Nasal Cannula Nasal Cannula Oxygen Flow Rate 2 2 07/23/25 11:16 07/23/25 12:00 07/23/25 12:00 Temperature 97.5 F L Pulse Rate 91 88 Respiratory Rate 18 Blood Pressure 134/55 L Pulse Oximetry 97 97 Oxygen Delivery Nasal Cannula Oxygen Flow Rate 2 07/23/25 14:00 07/23/25 16:00 Temperature 97.5 F L Pulse Rate 87 86 Respiratory Rate 21 H Blood Pressure 147/67 H Pulse Oximetry 96 Oxygen Delivery Oxygen Flow Rate Intake/Output Intake/Output: Intake & Output 07/20/25 07/21/25 07/22/25 07/23/25 23:59 23:59 23:59 23:59 Intake Total 742 051 4688.7 1450 Output Total 750 1700 1650 950 Balance -320 -1100 -463.3 500 Meds/Results Medications: Active Medications Generic Name Dose Route Start Last Admin Trade Name Freq PRN Reason Stop Dose Admin Acetaminophen 650 mg 07/07/25 08:10 07/23/25 08:14 Acetaminophen 325 Mg Tablet PO 650 mg Q4H PRN Administration Mild Pain (1-3) or Fever Acetaminophen 650 mg 07/10/25 17:36 07/10/25 21:18 Acetaminophen 650 Mg Suppository RECTAL 650 mg Q6H PRN Administration Fever Alteplase, Recombinant 2 mg 07/19/25 13:00 07/19/25 13:51 Alteplase 2 Mg Vial (Cathflo) IV PUSH 2 mg ONCE PRN Administration Line Occlusion Dextrose 12.5 gm 07/10/25 15:08 Dextrose 50% 25 Gm/50 Ml Syringe IV PUSH PRN PRN Hypoglycemia Protocol Glucagon 1 mg 07/10/25 15:08 Glucagon For Inj 1 Mg Vial IM PRN PRN Hypoglycemia Protocol Glucose 15 gm 07/10/25 15:08 Glucose Oral Gel 15 Gm Of Glucse In 37.5 Gm Tube PO PRN PRN Hypoglycemia Protocol Dextrose 1,000 mls @ 100 mls/hr 07/10/25 15:08 Dextrose 5% 1,000 Ml IVPB PRN PRN Hypoglycemia Protocol Cefepime HCl 2 gm/ Sodium 50 mls @ 100 mls/hr 07/21/25 07:00 07/23/25 08:43 Chloride IVPB Infused Q12H IVONE Infusion Vancomycin HCl 1,500 mg in 500 mls @ 250 mls/hr 07/23/25 11:00 07/23/25 13:11 Vancomycin 1,500 Mg/Ns 500 Ml IVPB Infused Q24H IVONE Infusion Insulin Aspart 3 - 6 units 07/10/25 17:00 07/23/25 13:24 Insulin Aspart (*Bkc) 100 Units/Ml SUB-Q 4 units Q4HR IVONE Administration Protocol Insulin Glargine 10 units 07/12/25 09:00 07/23/25 08:13 Insulin Glargine (*Bkc) 100 Units/Ml SUB-Q 10 units DAILY IVONE Administration Ipratropium Richardson 0.5 mg 07/14/25 08:25 Ipratropium Br 0.02% Inh Soln 0.5 Mg/2.5 Ml Vial INHALATION Q6HRT PRN Wheezing Levalbuterol HCl 0.63 mg 07/14/25 08:25 Levalbuterol Neb 1.25 Mg/3 Ml INHALATION Q6HRT PRN Wheezing Loperamide HCl 2 mg 07/07/25 14:57 07/19/25 06:45 Loperamide Hcl 2 Mg Capsule PO 2 mg PRN PRN Administration Diarrhea Methylprednisolone Sodium Succinate 10 mg 07/21/25 09:55 07/23/25 08:12 Methylprednisolone Sod Succ 40 Mg Vial IV PUSH 10 mg QAM IVONE Administration Metoprolol Tartrate 5 mg 07/15/25 11:44 Metoprolol Tartrate Inj 5 Mg/5 Ml Vial IV PUSH Q3H PRN HR > 120 sustained Pantoprazole Sodium 40 mg 07/21/25 09:40 07/23/25 08:12 Pantoprazole Sodium Iv 40 Mg Vial IV PUSH 40 mg QAM IVONE Administration Potassium Chloride 20 meq 07/18/25 09:00 07/23/25 08:13 Potassium Chloride 20 Meq Packet (For Liquid) PO 20 meq DAILY IVONE Administration Pramipexole Dihydrochloride 0.5 mg 07/07/25 21:00 07/20/25 20:35 Pramipexole 0.5 Mg Tablet PO 0.5 mg On Hold: 07/21/25 08:16 HS IVONE Administration Pravastatin Sodium 10 mg 07/08/25 09:00 07/23/25 08:14 Pravastatin Sodium 10 Mg Tablet BY MOUTH 10 mg DAILY IVONE Administration Rivaroxaban 20 mg 07/17/25 17:00 07/22/25 16:07 Rivaroxaban 20 Mg Tablet PO 20 mg DAILY@1700 IVONE Administration Sodium Chloride 20 ml 07/10/25 20:33 07/18/25 06:09 Central Line Flush IV PUSH 20 ml PRN PRN Administration after blood draws Sodium Chloride 10 ml 07/13/25 14:00 07/23/25 13:23 Central Line Flush IV PUSH 10 ml Q8HR IVONE Administration Sodium Chloride 10 ml 07/13/25 08:09 Central Line Flush IV PUSH PRN PRN with TPN bag changes Sodium Chloride 20 ml 07/13/25 08:09 Central Line Flush IV PUSH PRN PRN after blood draws Sotalol HCl 80 mg 07/16/25 21:00 07/23/25 08:14 Sotalol Hcl 80 Mg Tablet PO 80 mg Q12HR IVONE Administration Trimethobenzamide HCl 200 mg 07/07/25 14:56 07/12/25 04:26 Trimethobenzamide Hcl 200 Mg/2 Ml Vial IM 200 mg Q6H PRN Administration Nausea And Vomiting Radiology Results: ITS Impressions Cervical Spine CT 07/07/25 06:30 IMPRESSION: HEAD: 1. No acute intracranial findings. 2. Bilateral mastoiditis. C-SPINE: 1. No acute fracture. 2. Ill-defined fluid and postoperative changes posterior to upper cervical spine. 3. Extensive bilateral upper lung airspace disease, and left pleural effusion. Chest/Abdomen/Pelvis CT 07/07/25 07:13 IMPRESSION: 1. Diffuse lung disease, likely a combination of pneumonia in the upper lobes and left lower lobe and mild pulmonary edema. 2. Small pleural effusions. 3. Colitis involving the rectosigmoid. Head CT 07/10/25 15:36 Impression: 1.No acute intracranial abnormality. Abdomen/Pelvis CT 07/13/25 13:46 IMPRESSION: 1. Increased size of pleural effusions which are small to moderate compared to small on the previous exam. Bibasilar atelectatic changes with possible developing consolidation and/or vascular congestion. 2. Fluid and gas dilated rectosigmoid region with findings suggestive of mild colitis and diarrhea process. 3. Extraperitoneal findings of uncertain significance possibly associated with the air foci associated with injections. Correlate clinically to exclude active inflammatory/infectious process in the extra peritoneal soft tissues. NG Tube Placement 07/13/25 14:43 IMPRESSION: 1. Fluoroscopy utilized during placement of a nasogastric tube with distal tip in proximal side port in the body the stomach. Abdomen X-Ray 07/17/25 08:30 IMPRESSION: Unchanged exam compared to yesterday. Chest X-Ray 07/21/25 06:40 IMPRESSION: 1. Worsening bibasilar atelectasis and/or airspace disease with small pleural effusions. 2. Persistent interstitial pulmonary edema and/or pneumonitis. Labs Labs: Laboratory Results - last 24 hr 07/22/25 07/22/25 07/23/25 16:06 20:27 05:09 WBC RBC Hgb Hct MCV MCH MCHC RDW Plt Count MPV Puncture Site Right radial ABG pH 7.427 ABG pCO2 38.2 ABG pO2 96.0 ABG PO2/FiO2 Ratio 3.20 ABG HCO3 24.6 ABG O2 Saturation 97.5 ABG O2 Content 13.6 L ABG Base Excess 0.4 A-a Gradient 73.0 Oxyhemoglobin 95.7 Carboxyhemoglobin 1.2 Methemoglobin 0.3 Reduced Hemoglobin 2.8 Total Hemoglobin 10.0 L O2 Delivery Device Bipap O2 Liters/Min Not Reportable FiO2 30 Expiratory Pressure 5 Inspiratory Pressure 15 Sodium Potassium Chloride Carbon Dioxide Anion Gap BUN Creatinine Estim Creat Clear Calc Estimated GFR Glucose POC Capillary Glucose 191 H 350 H Calcium Phosphorus Magnesium Total Bilirubin AST ALT Alkaline Phosphatase Total Protein Albumin Vancomycin Trough 07/23/25 07/23/25 07/23/25 07:17 10:00 10:55 WBC 11.7 H RBC 3.07 L Hgb 8.8 L Hct 28.7 L MCV 93.5 MCH 28.7 MCHC 30.7 L RDW 19.9 H Plt Count 281 MPV 11.6 H Puncture Site ABG pH ABG pCO2 ABG pO2 ABG PO2/FiO2 Ratio ABG HCO3 ABG O2 Saturation ABG O2 Content ABG Base Excess A-a Gradient Oxyhemoglobin Carboxyhemoglobin Methemoglobin Reduced Hemoglobin Total Hemoglobin O2 Delivery Device O2 Liters/Min FiO2 Expiratory Pressure Inspiratory Pressure Sodium 133 L Potassium 4.0 Chloride 103 Carbon Dioxide 28 Anion Gap 2 L BUN 24 H Creatinine 1.00 Estim Creat Clear Calc 40 Estimated GFR 54 L Glucose 243 H POC Capillary Glucose 94 255 H Calcium 8.3 L Phosphorus 2.9 Magnesium 1.4 L Total Bilirubin 0.5 AST 40 H ALT 34 Alkaline Phosphatase 288 H Total Protein 5.3 L Albumin 2.9 L Vancomycin Trough 17.1 07/23/25 15:01 WBC RBC Hgb Hct MCV MCH MCHC RDW Plt Count MPV Puncture Site ABG pH ABG pCO2 ABG pO2 ABG PO2/FiO2 Ratio ABG HCO3 ABG O2 Saturation ABG O2 Content ABG Base Excess A-a Gradient Oxyhemoglobin Carboxyhemoglobin Methemoglobin Reduced Hemoglobin Total Hemoglobin O2 Delivery Device O2 Liters/Min FiO2 Expiratory Pressure Inspiratory Pressure Sodium Potassium Chloride Carbon Dioxide Anion Gap BUN Creatinine Estim Creat Clear Calc Estimated GFR Glucose POC Capillary Glucose 295 H Calcium Phosphorus Magnesium Total Bilirubin AST ALT Alkaline Phosphatase Total Protein Albumin Vancomycin Trough
[2025-07-23] MEDS: RIVAROXABAN 20 MG TABLET PO (16:46)
[2025-07-23] MEDS: MAGNESIUM SULF 2 GM/WATER 50ML 2 GM/50 ML BAG IVPB (17:46)
[2025-07-24] VITALS (24 sets, daily range): BP systolic 120–138; BP diastolic 48–71; PULSE 58–96; RESP 14–25; TEMP 36.4–36.8; O2SAT 97–100
[2025-07-24 04:26] LABS: Hematocrit 27.6 % (37.0-47.0); Hemoglobin 8.3 g/dL (12.0-15.0); Mean Corpuscular HGB Conc 30.1 g/dl (32-36); Mean Corpuscular Hemoglobin 28.1 pg (26-34); Mean Corpuscular Volume 93.6 fl (80-100); Platelet Count Result 248 k/mm3 (150-375); Red Blood Count 2.95 M/mm3 (4.2-5.4); White Blood Count 10.2 K/mm3 (4.5-10.0)
[2025-07-24 04:39] LABS: Alanine Aminotransferase 26 U/L (6-35); Albumin Level 2.8 g/dL (3.5-5.1); Alkaline Phosphatase 257 U/L (38-126); Anion Gap 0 mmol/L (4-12); Aspartate Amino Transferase 28 U/L (14-36); Bilirubin,Total 0.5 mg/dL (0.2-1.3); Blood Urea Nitrogen 26 mg/dL (7-17); Calcium 8.6 mg/dL (8.4-10.2); Carbon Dioxide 29 mmol/L (22-30); Chloride 104 mmol/L (98-107); Estimated CRCL calculation 46 ml/min; Estimated Glomerular Filt Rate > 60; Glucose 114 mg/dL (65-110); Magnesium 2.3 mg/dL (1.6-2.3); Potassium 3.7 mmol/L (3.4-5.0); Sodium 133 mmol/L (137-145); Total Protein 5.2 g/dL (6.3-8.2)
[2025-07-24] MEDS: CEFEPIME 2 GM in SODIUM CHLORIDE 0.9% IV 50 ML 100 ML IVPB (06:04)
[2025-07-24] MEDS: CENTRAL LINE FLUSH 10 ML IV PUSH ×3 (06:08→21:27)
[2025-07-24] MEDS: PANTOPRAZOLE SODIUM IV 40 MG VIAL IV PUSH (08:44)
[2025-07-24] MEDS: FUROSEMIDE 40 MG TABLET PO (08:45)
[2025-07-24] MEDS: PRAVASTATIN SODIUM 10 MG TABLET BY MOUTH (08:45)
[2025-07-24] MEDS: SOTALOL HCL 80 MG TABLET PO ×2 (08:45→21:26)
[2025-07-24] MEDS: POTASSIUM CHLORIDE 20 MEQ PACKET (FOR LIQUID) PO (08:45)
[2025-07-24] MEDS: ACETAMINOPHEN 325 MG TABLET 650 MG PO ×2 (08:49→17:14)
[2025-07-24] MEDS: INSULIN ASPART (*BKC) 100 UNITS/ML SUB-Q ×4 (11:52→17:14)
[2025-07-24] MEDS: VANCOMYCIN 1,500 MG/NS 500 ML 1,500 MG/500 ML BAG 250 MG IVPB (11:53)
[2025-07-24] MEDS: RIVAROXABAN 20 MG TABLET PO (17:14)
--- NOTE | 2025-07-24 17:40 | P.PNIM_ITS ---
Progress Note: A&P Assessment and Plan (1) Acute and chronic respiratory failure: Code(s): J96.20 - Acute and chronic respiratory failure, unspecified whether with hypoxia or hypercapnia Status: Acute Assessment and Plan: Acute on chronic hypoxic and hypercapnic respiratory failure likely related to multifactorial issues. Patient has a history of COPD, pulmonary hypertension, CHF, sarcoidosis, and interstitial lung disease ABG yesterday morning normal at 7.43/38/96 on bipap Patient was on and off BiPAP overnight and now on O2 nasal cannula Continue BiPAP at night and with naps. Wean O2 as tolerated Sporadic Lasix use but almost daily. I/O: -7.6L. On lasix daily at home. Encourage incentive spirometry use. Continue to have patient up to the chair. Continue bronchodilators. Oral Prednisone 10mg daily started 07/18 but patient became obtunded on 07/21 so changed to Soul-medrol Renal function and BP stable so Lasix scheduled starting 07/23 Change back to oral Prednisone. BCx negative for 2 days so will stop IV abx. (2) Encephalopathy: Code(s): G93.40 - Encephalopathy, unspecified Status: Acute Assessment and Plan: Likely related to hypercapnic respiratory failure. She had a similar presentation when she came to the hospital. She was awake and arousable enough to protect her airway Head CTs on 07/07 and 07/10 showed no acute intracranial abnormality Ammonia level was <9. TSH normal. B12/Folate normal in May. Mental status better. She is tolerating BiPAP. Monitor. Avoid sedatives (3) Sepsis: Code(s): A41.9 - Sepsis, unspecified organism Status: Acute Assessment and Plan: Patient presented with a fall and AMS and found to have a sepsis from UTI. Influenza, RSV, COVID PCR (07/07): negative UCx (07/07): Enterobacter cloaca and Proteus penneri, both susceptible to cefepime. BCx (07/07): Negative. Urine Legionella and streptococcal Ag (07/10): negative. MRSA nasal swab (07/10): positive. Resp Viral Panel (07/13): Negative. Stool Cx (07/16): Negative. CDiff (07/16, 07/20): Negative Azithro 07/07 then Doxy 07/07-07/15, Rocephin 07/07-07/11, Vanc 07/10-07/14, Cefepime 07/11-07/16 Patient completed course of antibiotics with last dose on 07/16. 07/21 overnight patient was noted to be hypoxic and started on vancomycin and cefepime. She is afebrile, her WBC is not significantly increased. Her procalcitonin level was only 0.1 Stool Cx (07/20): negative BCx (07/21): NGTD Presentation more consistent with CHF and hypoventilation rather than pneumonia. Will deescalate once BCx return. (4) Ileus: Code(s): K56.7 - Ileus, unspecified Status: Acute Assessment and Plan: Patient was managed for ileus earlier in the course of the hospitalization. She had NG tube which was removed after couple days as this has improved 07/14 CT abdomen pelvis did not show any obstruction No evidence of nausea vomiting or diarrhea so diet started Having BMs. Tolerating diet. Monitor (5) Acute exacerbation of chronic obstructive pulmonary disease: Code(s): J44.1 - Chronic obstructive pulmonary disease with (acute) exacerbation Status: Acute Assessment and Plan: Oxygen therapy as above. P.r.n. bronchodilators. Resume oral home dose of steroid De-escalate Antibiotics (6) UTI (urinary tract infection): Code(s): N39.0 - Urinary tract infection, site not specified Status: Acute Assessment and Plan: As above (7) Paroxysmal atrial fibrillation: Code(s): I48.0 - Paroxysmal atrial fibrillation Status: Chronic Assessment and Plan: Patient with history of pAFib with intermittent RVR Patient was started on amiodarone IV. Patient was restarted on sotalol after discussion with Cardiology and amiodarone was stopped. Later due to ileus p.o. medications. 07/14 due to frequent tachycardia patient was started on Cardizem infusion. She was on rivaroxaban but was held as patient was NPO, Also her anticoagulation was stopped by Cardiology as she has had a fall. Dr. Allen discussed with Cardiology regarding anticoagulation, Dr. Sorensen, stated that her in the mostly is atrial tachycardia and not atrial fibrillation and the risk for strokes is much decreased, he would like to wait on anticoagulation. 07/15 Case was discussed with Dr. Sorensen. Plan to resume sotalol today. If patient tolerates will transition to sotalol and p.r.n. Lopressor and get her off Cardizem infusion. 07/16 continue p.o. sotalol. Patient is off Cardizem infusion. Continue IV p.r.n. Lopressor.. Continue Xarelto. If patient is unable to tolerate p.o. will switch to Lovenox Stable on tele. 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 The patient's blood glucose was reviewed on 07/24 Fasting glucose good but pre-meal glucose poorly controlled related to holding Lantus. Continue AccuCheks covering with sliding scale. Hypoglycemia protocol available as needed. Resume Lantus tonight. Monitor closely since changing to oral Prednisone. (9) Sarcoid: Code(s): D86.9 - Sarcoidosis, unspecified Status: Acute Assessment and Plan: Recently diagnosed sarcoidosis at [facility] Patient's calcium level a within normal limits Continue steroids (10) Pulmonary hypertension: Code(s): I27.20 - Pulmonary hypertension, unspecified Status: Acute Assessment and Plan: History of pulmonary hypertension, likely related to sleep apnea, sarcoidosis, interstitial lung disease, coronary artery disease, COPD Echo 07/11/2025: normal LV size and systolic fxn (EF 65-70%), moderate concentric LVH, abnml diastolic fxn, reduced RV function, mod TR and severe pulm HTN with estimated pulmonary arterial systolic pressure is 60 mmHg. Cardiology following the patient for atrial fibrillation and atrial tachycardia (11) Fall: Code(s): W19.XXXA - Unspecified fall, initial encounter Status: Acute Assessment and Plan: Patient presented with a fall on 07/07 Status post fusion of C2-C6 at [facility] on 06/26/[address] Cervical spine 07/07 showed fluid collection at the surgical site. Neurosurgery at [facility] evaluated the patient. No drainage from her incision and hardware was well-positioned. The neurosurgery team had no additional recommendations. PT OT has been ordered Continue neck brace (12) Pressure ulcer: Code(s): L89.90 - Pressure ulcer of unspecified site, unspecified stage Status: Acute Assessment and Plan: Stage III pressure ulcer on coccyx and sacrum Wound care following Plan DVT prophylaxis: Sarai Code Status: Full code Subjective Date/time seen: 07/24/25 17:40 Interval history: 75yo female with recent cervical fracture status post surgery, DM, iron deficiency anemia, AFib, CAD, HTN and dyslipidemia who presents to the hospital after being found down at a assisted. Patient had a recent fall sustaining a cervical neck fracture and underwent surgery at [facility]. She was hospitalized for about 26 days. She was also noted to have hypercalcemia and an abnormal CT Chest. She underwent biopsy and was found to have sarcoid requiring prednisone 10 mg daily. She was discharged to [facility] on 07/04/25 but fell and was brought to [facility] and admitted on 07/07 due to fall complicated by respiratory distress and transferred to ICU. No problems overnight. Slept better. No n/v. Eating okay. Wore BiPAP off and on. no SOB or CP. Does have some abd pain but not worse with oral intake. Exam Narrative: AF 98.2 134/68 79 18 100% 2L Gen - NARD sitting up in chair Neck - Hard cervical collar in place Chest - distant BS. nml RR CV - RRR S1/S2. Tele showing no significant dysrhythmias Abd - Soft, NT/ND, Positive BS - Schmidt secured draining clear yellow urine Ext - 1+ pedal edema Neuro - Alert and appropriate. RODRIGUEZ Psych - Nml mood and affect Skin - Warm and dry. left forearm dried abrasion Objective Data Vital Signs Vital Signs: Vital Signs - 24 hr 07/23/25 18:00 07/23/25 19:39 07/23/25 20:00 Temperature 98.9 F Pulse Rate 96 93 Respiratory Rate 21 H Blood Pressure 148/66 H Pulse Oximetry 96 96 Oxygen Delivery Nasal Cannula Oxygen Flow Rate 2 Fraction of Inspired Oxygen 07/23/25 20:00 07/23/25 20:19 07/23/25 22:00 Temperature Pulse Rate 92 90 80 Respiratory Rate Blood Pressure Pulse Oximetry Oxygen Delivery Oxygen Flow Rate Fraction of Inspired Oxygen 07/23/25 22:22 07/24/25 00:00 07/24/25 00:00 Temperature 97.7 F Pulse Rate 83 64 Respiratory Rate 28 H 25 H Blood Pressure 137/63 Pulse Oximetry 95 100 100 Oxygen Delivery BiPAP BiPAP Oxygen Flow Rate Fraction of Inspired Oxygen 30 07/24/25 00:00 07/24/25 02:00 07/24/25 02:06 Temperature Pulse Rate 59 L 89 64 Respiratory Rate 14 Blood Pressure Pulse Oximetry 100 Oxygen Delivery BiPAP Oxygen Flow Rate Fraction of Inspired Oxygen 07/24/25 02:30 07/24/25 04:00 07/24/25 04:00 Temperature Pulse Rate 82 90 Respiratory Rate Blood Pressure Pulse Oximetry 98 97 Oxygen Delivery Nasal Cannula Nasal Cannula Oxygen Flow Rate 2 2 Fraction of Inspired Oxygen 07/24/25 04:30 07/24/25 06:00 07/24/25 07:50 Temperature 97.6 F 97.5 F L Pulse Rate 77 58 L 72 Respiratory Rate 22 H 18 Blood Pressure 135/58 L 138/71 Pulse Oximetry 100 99 Oxygen Delivery Oxygen Flow Rate Fraction of Inspired Oxygen 07/24/25 07:54 07/24/25 08:00 07/24/25 08:00 Temperature Pulse Rate 87 92 Respiratory Rate Blood Pressure Pulse Oximetry 98 97 Oxygen Delivery Nasal Cannula Nasal Cannula Oxygen Flow Rate 2 2 Fraction of Inspired Oxygen 07/24/25 08:45 07/24/25 10:00 07/24/25 11:44 Temperature 97.5 F L Pulse Rate 70 84 72 Respiratory Rate 18 Blood Pressure 120/54 L Pulse Oximetry 97 Oxygen Delivery Oxygen Flow Rate Fraction of Inspired Oxygen 07/24/25 12:00 07/24/25 12:00 07/24/25 15:24 Temperature 98.2 F Pulse Rate 78 79 Respiratory Rate 18 Blood Pressure 134/68 Pulse Oximetry 97 100 Oxygen Delivery Nasal Cannula Oxygen Flow Rate 2 Fraction of Inspired Oxygen Intake/Output Intake/Output: Intake & Output 07/21/25 07/22/25 07/23/25 07/24/25 23:59 23:59 23:59 23:59 Intake Total 600 1686.7 2040 1050 Output Total 1700 1650 1450 1950 Balance -1100 36.7 590 -900 Meds/Results Medications: Active Medications Generic Name Dose Route Start Last Admin Trade Name Freq PRN Reason Stop Dose Admin Acetaminophen 650 mg 07/07/25 08:10 07/24/25 17:14 Acetaminophen 325 Mg Tablet PO 650 mg Q4H PRN Administration Mild Pain (1-3) or Fever Acetaminophen 650 mg 07/10/25 17:36 07/10/25 21:18 Acetaminophen 650 Mg Suppository RECTAL 650 mg Q6H PRN Administration Fever Alteplase, Recombinant 2 mg 07/19/25 13:00 07/19/25 13:51 Alteplase 2 Mg Vial (Cathflo) IV PUSH 2 mg ONCE PRN Administration Line Occlusion Dextrose 12.5 gm 07/10/25 15:08 Dextrose 50% 25 Gm/50 Ml Syringe IV PUSH PRN PRN Hypoglycemia Protocol Furosemide 40 mg 07/24/25 09:00 07/24/25 08:45 Furosemide 40 Mg Tablet PO 40 mg DAILY IVONE Administration Glucagon 1 mg 07/10/25 15:08 Glucagon For Inj 1 Mg Vial IM PRN PRN Hypoglycemia Protocol Glucose 15 gm 07/10/25 15:08 Glucose Oral Gel 15 Gm Of Glucse In 37.5 Gm Tube PO PRN PRN Hypoglycemia Protocol Dextrose 1,000 mls @ 100 mls/hr 07/10/25 15:08 Dextrose 5% 1,000 Ml IVPB PRN PRN Hypoglycemia Protocol Cefepime HCl 2 gm/ Sodium 50 mls @ 100 mls/hr 07/21/25 07:00 07/24/25 06:34 Chloride IVPB Infused Q12H IVONE Infusion Vancomycin HCl 1,500 mg in 500 mls @ 250 mls/hr 07/23/25 11:00 07/24/25 11:53 Vancomycin 1,500 Mg/Ns 500 Ml IVPB 250 mls/hr Q24H IVONE Administration Insulin Aspart 3 units 07/24/25 08:00 07/24/25 17:14 Insulin Aspart (*Bkc) 100 Units/Ml SUB-Q 3 units TIDWM IVONE Administration Insulin Aspart 2 - 5 units 07/24/25 08:00 07/24/25 17:14 Insulin Aspart (*Bkc) 100 Units/Ml SUB-Q 2 units TIDWM IVONE Administration Protocol Ipratropium [place] 0.5 mg 07/14/25 08:25 Ipratropium Br 0.02% Inh Soln 0.5 Mg/2.5 Ml Vial INHALATION Q6HRT PRN Wheezing Levalbuterol HCl 0.63 mg 07/14/25 08:25 Levalbuterol Neb 1.25 Mg/3 Ml INHALATION Q6HRT PRN Wheezing Loperamide HCl 2 mg 07/07/25 14:57 07/19/25 06:45 Loperamide Hcl 2 Mg Capsule PO 2 mg PRN PRN Administration Diarrhea Methylprednisolone Sodium Succinate 10 mg 07/21/25 09:55 07/24/25 08:44 Methylprednisolone Sod Succ 40 Mg Vial IV PUSH 10 mg QAM IVONE Administration Metoprolol Tartrate 5 mg 07/15/25 11:44 Metoprolol Tartrate Inj 5 Mg/5 Ml Vial IV PUSH Q3H PRN HR > 120 sustained Pantoprazole Sodium 40 mg 07/21/25 09:40 07/24/25 08:44 Pantoprazole Sodium Iv 40 Mg Vial IV PUSH 40 mg QAM IVONE Administration Potassium Chloride 20 meq 07/18/25 09:00 07/24/25 08:45 Potassium Chloride 20 Meq Packet (For Liquid) PO 20 meq DAILY IVONE Administration Pramipexole Dihydrochloride 0.5 mg 07/07/25 21:00 07/20/25 20:35 Pramipexole 0.5 Mg Tablet PO 0.5 mg On Hold: 07/21/25 08:16 HS IVONE Administration Pravastatin Sodium 10 mg 07/08/25 09:00 07/24/25 08:45 Pravastatin Sodium 10 Mg Tablet BY MOUTH 10 mg DAILY IVONE Administration Rivaroxaban 20 mg 07/17/25 17:00 07/24/25 17:14 Rivaroxaban 20 Mg Tablet PO 20 mg DAILY@1700 IVONE Administration Sodium Chloride 20 ml 07/10/25 20:33 07/18/25 06:09 Central Line Flush IV PUSH 20 ml PRN PRN Administration after blood draws Sodium Chloride 10 ml 07/13/25 14:00 07/24/25 14:15 Central Line Flush IV PUSH 10 ml Q8HR IVONE Administration Sodium Chloride 10 ml 07/13/25 08:09 Central Line Flush IV PUSH PRN PRN with TPN bag changes Sodium Chloride 20 ml 07/13/25 08:09 Central Line Flush IV PUSH PRN PRN after blood draws Sotalol HCl 80 mg 07/16/25 21:00 07/24/25 08:45 Sotalol Hcl 80 Mg Tablet PO 80 mg Q12HR IVONE Administration Trimethobenzamide HCl 200 mg 07/07/25 14:56 07/12/25 04:26 Trimethobenzamide Hcl 200 Mg/2 Ml Vial IM 200 mg Q6H PRN Administration Nausea And Vomiting Radiology Results: ITS Impressions Cervical Spine CT 07/07/25 06:30 IMPRESSION: HEAD: 1. No acute intracranial findings. 2. Bilateral mastoiditis. C-SPINE: 1. No acute fracture. 2. Ill-defined fluid and postoperative changes posterior to upper cervical spine. 3. Extensive bilateral upper lung airspace disease, and left pleural effusion. Chest/Abdomen/Pelvis CT 07/07/25 07:13 IMPRESSION: 1. Diffuse lung disease, likely a combination of pneumonia in the upper lobes and left lower lobe and mild pulmonary edema. 2. Small pleural effusions. 3. Colitis involving the rectosigmoid. Head CT 07/10/25 15:36 Impression: 1.No acute intracranial abnormality. Abdomen/Pelvis CT 07/13/25 13:46 IMPRESSION: 1. Increased size of pleural effusions which are small to moderate compared to small on the previous exam. Bibasilar atelectatic changes with possible developing consolidation and/or vascular congestion. 2. Fluid and gas dilated rectosigmoid region with findings suggestive of mild colitis and diarrhea process. 3. Extraperitoneal findings of uncertain significance possibly associated with the air foci associated with injections. Correlate clinically to exclude active inflammatory/infectious process in the extra peritoneal soft tissues. NG Tube Placement 07/13/25 14:43 IMPRESSION: 1. Fluoroscopy utilized during placement of a nasogastric tube with distal tip in proximal side port in the body the stomach. Abdomen X-Ray 07/17/25 08:30 IMPRESSION: Unchanged exam compared to yesterday. Chest X-Ray 07/21/25 06:40 IMPRESSION: 1. Worsening bibasilar atelectasis and/or airspace disease with small pleural effusions. 2. Persistent interstitial pulmonary edema and/or pneumonitis. Labs Labs: Laboratory Results - last 24 hr 07/23/25 07/24/25 07/24/25 20:18 04:08 07:11 WBC 10.2 H RBC 2.95 L Hgb 8.3 L Hct 27.6 L MCV 93.6 MCH 28.1 MCHC 30.1 L RDW 19.8 H Plt Count 248 MPV 11.2 H Sodium 133 L Potassium 3.7 Chloride 104 Carbon Dioxide 29 Anion Gap 0 L BUN 26 H Creatinine 0.87 Estim Creat Clear Calc 46 Estimated GFR > 60 Glucose 114 H POC Capillary Glucose 254 H 106 H Calcium 8.6 Phosphorus 2.4 L Magnesium 2.3 Total Bilirubin 0.5 AST 28 ALT 26 Alkaline Phosphatase 257 H Total Protein 5.2 L Albumin 2.8 L 07/24/25 07/24/25 11:06 15:15 WBC RBC Hgb Hct MCV MCH MCHC RDW Plt Count MPV Sodium Potassium Chloride Carbon Dioxide Anion Gap BUN Creatinine Estim Creat Clear Calc Estimated GFR Glucose POC Capillary Glucose 230 H 225 H Calcium Phosphorus Magnesium Total Bilirubin AST ALT Alkaline Phosphatase Total Protein Albumin
[2025-07-24] MEDS: POTASSIUM/PHOSPHORUS/SODIUM 1.5 GM PACKET 1 PACKET PO (19:07)
[2025-07-24] MEDS: INSULIN GLARGINE (*BKC) 100 UNITS/ML 6 UNITS SUB-Q (21:26)
[2025-07-25] VITALS (15 sets, daily range): BP systolic 121–148; BP diastolic 50–65; PULSE 53–88; RESP 15–30; TEMP 36.2–36.9; O2SAT 96–100
--- NOTE | 2025-07-25 03:49 | PC.NURSE ---
Patient refusing to wear BIPAP any longer. BIPAP removed and patient placed back on 3L NC.
[2025-07-25] MEDS: CENTRAL LINE FLUSH 10 ML IV PUSH ×2 (05:17→14:11)
[2025-07-25] MEDS: FUROSEMIDE 40 MG TABLET PO (08:43)
[2025-07-25] MEDS: PRAVASTATIN SODIUM 10 MG TABLET BY MOUTH (08:43)
[2025-07-25] MEDS: SOTALOL HCL 80 MG TABLET PO (08:43)
[2025-07-25] MEDS: POTASSIUM CHLORIDE 20 MEQ PACKET (FOR LIQUID) PO (08:43)
[2025-07-25] MEDS: INSULIN ASPART (*BKC) 100 UNITS/ML SUB-Q ×5 (08:44→17:02)
[2025-07-25] MEDS: PANTOPRAZOLE 40 MG TABLET PO (08:44)
[2025-07-25 09:01] LABS: Hematocrit 28.7 % (37.0-47.0); Hemoglobin 8.6 g/dL (12.0-15.0); Mean Corpuscular HGB Conc 30.0 g/dl (32-36); Mean Corpuscular Hemoglobin 28.3 pg (26-34); Mean Corpuscular Volume 94.4 fl (80-100); Platelet Count Result 236 k/mm3 (150-375); Red Blood Count 3.04 M/mm3 (4.2-5.4); White Blood Count 10.2 K/mm3 (4.5-10.0)
[2025-07-25 09:21] LABS: Alanine Aminotransferase 28 U/L (6-35); Albumin Level 3.0 g/dL (3.5-5.1); Alkaline Phosphatase 241 U/L (38-126); Anion Gap 2 mmol/L (4-12); Aspartate Amino Transferase 29 U/L (14-36); Bilirubin,Total 0.4 mg/dL (0.2-1.3); Blood Urea Nitrogen 28 mg/dL (7-17); Calcium 8.5 mg/dL (8.4-10.2); Carbon Dioxide 29 mmol/L (22-30); Chloride 103 mmol/L (98-107); Estimated CRCL calculation 42 ml/min; Estimated Glomerular Filt Rate 58; Glucose 130 mg/dL (65-110); Magnesium 1.8 mg/dL (1.6-2.3); Potassium 3.3 mmol/L (3.4-5.0); Sodium 134 mmol/L (137-145); Total Protein 5.5 g/dL (6.3-8.2)
--- NOTE | 2025-07-25 10:34 | PCNFU ---
Nutrition Follow-Up Complete: Inadequate energy intake related to NPO in the setting of continuous bipap as evidenced by current status Goal:Meet estimated nutrition needs Pt meeting goal. Continue with same goal Pt current nutrition is Diabetic. Nutrition recommendation: Add FAISAL BID for wound healing Last recorded weight is 71.6 kg. Bowel Motility: +BM 07/25 Labs Reviewed: Hgb:8.3, HCT:27.6, Alb:2.8, NA:133, BUN:26, Glu:119 Meds Noted:lantus, prednisone, protonix Skin: Stage III to coccyx Additional Notes: Pt on a diabetic diet, intake 100% most meals. Noted pressure ulcer, recommend FAISAL BID for wound healing. Encourage intake of meals and supplements. Monitoring respiratory status, plan of care, meds, weights, vitals Follow up in 7 days. Daily rounds
[2025-07-25] MEDS: POTASSIUM CHLORIDE 20 MEQ ER TABLET PO (12:21)
--- NOTE | 2025-07-25 13:54 | PCPTNOTE ---
Patient refused treatment this session. Encouraged and educated patient on the importance of therapy, patient continued to refused. Patient's present in room for encouragement with continuing to refuse.
--- NOTE | 2025-07-25 13:55 | P.DS_ITS ---
DS: Admitting Diagnosis Discharge Date 07/25/25 Admitting Diagnosis Fall DS: Discharge Diagnosis Discharge Diagnosis (1) Acute and chronic respiratory failure: Code(s): J96.20 - Acute and chronic respiratory failure, unspecified whether with hypoxia or hypercapnia Status: Acute (2) Encephalopathy: Code(s): G93.40 - Encephalopathy, unspecified Status: Acute (3) Sepsis: Code(s): A41.9 - Sepsis, unspecified organism Status: Acute (4) Ileus: Code(s): K56.7 - Ileus, unspecified Status: Acute (5) Acute exacerbation of chronic obstructive pulmonary disease: Code(s): J44.1 - Chronic obstructive pulmonary disease with (acute) exacerbation Status: Acute (6) UTI (urinary tract infection): Code(s): N39.0 - Urinary tract infection, site not specified Status: Acute (7) Paroxysmal atrial fibrillation: Code(s): I48.0 - Paroxysmal atrial fibrillation Status: Chronic 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: Qualifiers: Diabetes mellitus custodial insulin use: without custodial use Qualified Code(s): E11.21 - Type 2 diabetes mellitus with diabetic nephropathy Code(s): E11.21 - Type 2 diabetes mellitus with diabetic nephropathy Status: Acute (9) Sarcoid: Code(s): D86.9 - Sarcoidosis, unspecified Status: Acute (10) Pulmonary hypertension: Code(s): I27.20 - Pulmonary hypertension, unspecified Status: Acute (11) Fall: Code(s): W19.XXXA - Unspecified fall, initial encounter Status: Acute (12) Pressure ulcer: Code(s): L89.90 - Pressure ulcer of unspecified site, unspecified stage Status: Acute DS: Summary Hospital Course Reason for hospitalization: 75yo female with recent cervical fracture status post surgery, DM, iron deficiency anemia, AFib, CAD, HTN and dyslipidemia who presents to the hospital after being found down at a group home. Patient had a recent fall sustaining a cervical neck fracture and underwent surgery at [facility]. She was hospitalized for about 26 days. She was also noted to have hypercalcemia and an abnormal CT Chest. She underwent biopsy and was found to have sarcoid requiring prednisone 10 mg daily. She was discharged to [facility] on 07/04/25 but fell and was brought to [place] and admitted on 07/07 due to fall complicated by respiratory distress and transferred to ICU. Please see H&P for details. Hospital Course: The following medical issues were addressed during hospitalization: (1) Acute and chronic respiratory failure: Acute on chronic hypoxic and hypercapnic respiratory failure likely related to multifactorial issues. Patient has a history of COPD, pulmonary hypertension, CHF, sarcoidosis, and interstitial lung disease. Patient was on and off BiPAP alternating with HFNC early in her hospital course. Sporadic Lasix use but almost daily. I/O: -7.6L. On lasix daily at home. Encourage incentive spirometry use. Continue to have patient up to the chair. Treated with bronchodilators and steroids as well. Oral Prednisone 10mg daily started 07/18 but patient became obtunded on 07/21 so changed to Soul-medrol. Renal function and BP stable so Lasix scheduled starting 07/23. She was able to be weaned to wearing BiPAP at night and with naps. Weaned O2 as tolerated to almost room air. She normally is on 2L O2 at home. ABG close to discharge showing 7.43/38/96 on bipap. Wean O2 to keep SpO2>92%. (2) Encephalopathy: Her altered mental status felt likely related to hypercapnic respiratory failure. She was awake and arousable enough to protect her airway. Head CTs on 07/07 and 07/10 showed no acute intracranial abnormality. Ammonia level was <9. TSH normal. B12/Folate normal in May. Mental status much better. She is tolerating BiPAP. Avoid sedatives. (3) Sepsis: Patient presented with a fall and AMS and found to have a sepsis from UTI. Inf luenza, RSV, COVID PCR (07/07) were negative. UCx (07/07) grew Enterobacter cloaca and Proteus penneri, both susceptible to cefepime. BCx (07/07)was negative. Urine Legionella and streptococcal Ag (07/10) were negative. MRSA nasal swab (07/10) positive. Resp Viral Panel (07/13) negative. Stool Cx (07/16) negative. CDiff (07/16, 07/20) both negative. Patient completed course of antibiotics with last dose on 07/16. Overnight (07/21) patient was noted to be hypoxic and started on vancomycin and cefepime. She was afebrile, her WBC was not significantly increased. Her procalcitonin level was only 0.1. Stool Cx (07/20) was negative and BCx (07/21) was NGTD. Presentation more consistent with CHF and hypoventilation rather than pneumonia. BCx negative for 48 hours so antibiotics stopped. (4) Ileus: Patient was managed for ileus earlier in the course of the hospitalization. She had NG tube which was removed after couple days as this has improved. 07/14 CT abdomen pelvis did not show any obstruction. No symptoms of nausea, vomiting or diarrhea so diet started. Having BMs. Tolerating diet. (5) Acute exacerbation of chronic obstructive pulmonary disease: Oxygen therapy as above. We resumed oral home dose of steroid. (6) UTI (urinary tract infection): As above (7) Paroxysmal atrial fibrillation: Patient with history of pAFib with intermittent RVR. Patient was started on amiodarone IV. Patient was restarted on sotalol after discussion with Cardiology and amiodarone was stopped. Due to ileus and frequent RVR, patient was started on Cardizem infusion. She was on rivaroxaban but was held as patient was NPO. Emergency Department Nurse (Dr. Sorensen) stated that she is in mostly atrial tachycardia and not atrial fibrillation and the risk for strokes is much decreased so Xarelto held. She was changed back to sotalol once the ileus resolved. Xarelto also resumed. Heart rate stable on tele. 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: A1c 7.5% last year. The patient's blood glucose was monitored with AccuCheks covering with sliding scale. Hypoglycemia protocol available as needed. Fasting glucose good but pre-meal glucose poorly controlled related to holding Lantus. Lantus resumed at night. (9) Sarcoid: Recently diagnosed sarcoidosis at [facility]. Patient's calcium level is within normal limits. Continue steroids. (10) Pulmonary hypertension: History of pulmonary hypertension, likely related to sleep apnea, sarcoidosis, interstitial lung disease, coronary artery disease, COPD. Echo 07/11/2025: normal LV size and systolic fxn (EF 65-70%), moderate concentric LVH, abnml diastolic fxn, reduced RV function, mod TR and severe pulm HTN with estimated pulmonary arterial systolic pressure is 60 mmHg. Cardiology following the patient for atrial fibrillation and atrial tachycardia (11) Fall: Patient presented with a fall on 07/07. Status post fusion of C2-C6 at [facility] on 06/26/[address] Cervical spine 07/07 showed fluid collection at the surgical site. Neurosurgery at [facility] evaluated the patient. No drainage from her incision and hardware was well- positioned. The neurosurgery team had no additional recommendations. PT OT was ordered. Continue neck brace (12) Pressure ulcer: Stage III pressure ulcer on coccyx and sacrum. Wound care followed along. The patient overall did well and was able to be discharged on 07/25/25. Discharge instructions discussed including medication side effects and all questions answered. Status at Discharge Cognitive/behavioral status at discharge: Stable Time Spent with Patient Time attestation: Total time spent providing and/or coordinating discharge services: 40 minutes Time spent: Greater than 30 minutes Exam Narrative: AF 98.4 121/50 88 04873% bipap Gen - NARD sitting up at side of bed Neck - Hard cervical collar in place Chest - distant BS. nml RR CV - RRR S1/S2. Tele showing brief episodes of tachycardia when active Abd - Soft, NT/ND, Positive BS Ext - trace pedal edema Psych - Nml mood and affect Skin - Warm and dry. left forearm dried abrasion DS: Data Data Completed and Pending Labs on day of discharge: Labs from last 24 hours 07/25/25 07/25/25 07/25/25 11:11 08:53 07:35 WBC 10.2 H RBC 3.04 L Hgb 8.6 L Hct 28.7 L MCV 94.4 MCH 28.3 MCHC 30.0 L RDW 19.9 H Plt Count 236 MPV 10.9 H Sodium 134 L Potassium 3.3 L Chloride 103 Carbon Dioxide 29 Anion Gap 2 L BUN 28 H Creatinine 0.95 Estim Creat Clear Calc 42 Estimated GFR 58 L Glucose 130 H POC Capillary Glucose 207 H 119 H Calcium 8.5 Phosphorus 2.8 Magnesium 1.8 Total Bilirubin 0.4 AST 29 ALT 28 Alkaline Phosphatase 241 H Total Protein 5.5 L Albumin 3.0 L 07/25/25 07/24/25 07/24/25 02:12 20:06 15:15 WBC RBC Hgb Hct MCV MCH MCHC RDW Plt Count MPV Sodium Potassium Chloride Carbon Dioxide Anion Gap BUN Creatinine Estim Creat Clear Calc Estimated GFR Glucose POC Capillary Glucose 130 H 221 H 225 H Calcium Phosphorus Magnesium Total Bilirubin AST ALT Alkaline Phosphatase Total Protein Albumin Preliminary micro results at discharge 07/21/25 08:34 Blood Culture - Preliminary Blood 07/21/25 08:53 Blood Culture - Preliminary Blood Discharge Plan Discharge Attending physician on discharge: Aroldo East Consulting providers: Sophie Lanza; Vera Pedro; Greg Wolf; Miky Sorensen; Han Schrader Discharging Clinician: Aroldo East Anticipated Discharge Date/Time: 07/25/25 14:21 Patient Disposition: [facility] Activity: other - see discharge instructions Diet: diabetic Discharge Instructions: Continue activity restrictions related to recent cervical spine surgery Continue cervical collar at all times. Oxygen at 1liter and wean to keep her SpO2 > 92% Continue routine wound care. Compression hose on in the morning and off at night. Continue BiPAP at night, with naps and if feeling short of breath. Please check glucose before meals and before bed. Record for the doctor's review. Check blood pressure 1 to 2 times a day. Record for the doctor's review. Take precautions to avoid falls. Rise slowly from a lying or sitting position. Pause before standing or walking. Contact the doctor if the patient has any type of trauma, lightheadedness with standing or other worrisome symptoms. Avoid NSAIDs (ibuprofen, naproxen, Aleve). Tylenol is safe to take. Follow-up with the provider at the facility. Follow-up with the Neurosurgeons as previously scheduled Follow-up with Cardiology in 1-2 weeks. Please call for an appointment Thank you for using [facility] for your health care needs. Patient Instructions: Rivaroxaban (By mouth), Heart Failure (DC) Patient Language: Barbadian Follow-up/Referrals: Miky Sorensen DO [Physician, Cardiology] - Call for Appointment Parminder Rojas MD [Primary Care Provider, Family Practice] - Call for Appointment Discharge Medications: Continued magnesium oxide 250 mg magnesium tablet 250 mg PO DAILY cholecalciferol (vitamin D3) [Vitamin D3] 25 mcg (1,000 unit) capsule 25 mcg PO DAILY Pokonza 10 mEq packet 20 meq PO DAILY acetaminophen 500 mg capsule 500 mg PO Q6H PRN (Reason: fever or pain) prednisone 10 mg tablet 10 mg PO DAILY sotalol 80 mg tablet 80 mg PO Q12H Xarelto 20 mg tablet See Rx Instructions .ROUTE .COMPLEX Qty: 30 5RF Dose Instruction: TAKE 1 TABLET BY MOUTH EVERY DAY MUST ADMINISTER WITH EVENING MEAL Rx Instructions: TAKE 1 TABLET BY MOUTH EVERY DAY MUST ADMINISTER WITH EVENING MEAL furosemide 40 mg tablet See Rx Instructions .ROUTE .COMPLEX Qty: 90 2RF Dose Instruction: TAKE 1 TABLET BY MOUTH EVERY DAY Rx Instructions: TAKE 1 TABLET BY MOUTH EVERY DAY pravastatin 10 mg tablet See Rx Instructions .ROUTE .COMPLEX Qty: 90 2RF Dose Instruction: TAKE 1 TABLET BY MOUTH EVERY DAY Rx Instructions: TAKE 1 TABLET BY MOUTH EVERY DAY pantoprazole 40 mg tablet,delayed release (DR/EC) 40 mg PO QAM Qty: 90 3RF Changed insulin glargine [Lantus U-100 Insulin] 100 unit/mL solution 6 unit subcut DAILY Qty: 10 0RF insulin lispro [Humalog U-100 Insulin] 100 unit/mL solution 3 unit subcut TID Qty: 10 0RF Patient Comments: with meals Held Repatha SureClick 140 mg/mL pen injector 140 mg subcut .every 2 weeks Qty: 2 11RF Hold Instructions: HOLD - resume when okay with your doctor Patient Comments: Once a Day Every Other Thursday losartan 25 mg tablet 25 mg PO DAILY Hold Instructions: HOLD - Resume when okay with your doctor amlodipine 10 mg tablet 10 mg PO DAILY Hold Instructions: HOLD - Resume when okay with your doctor biotin 5 mg capsule 5 mg PO DAILY Hold Instructions: HOLD - Resume when okay with your doctor arformoterol 15 mcg/2 mL solution for nebulization See Rx Instructions .ROUTE .COMPLEX Qty: 30 11RF Hold Instructions: HOLD - Resume when okay with your doctor Dose Instruction: USE 1 VIAL IN NEBULIZER DAILY Rx Instructions: USE 1 VIAL IN NEBULIZER DAILY pramipexole 0.5 mg tablet 0.5 mg PO HS Qty: 90 1RF Hold Instructions: HOLD - Resume when okay with your doctor metformin 500 mg tablet extended release 24 hr 1,000 mg PO QPM Qty: 90 0RF Hold Instructions: HOLD - Resume when okay with your doctor Rx Instructions: afternoon Discontinued methocarbamol 500 mg tablet 500 mg PO Q8H PRN (Reason: muscle spasms ) cholecalciferol (vitamin D3) [VitaJoy Daily D] 25 mcg (1,000 unit) tablet,chewable 25 mcg PO DAILY metoprolol tartrate 25 mg tablet See Rx Instructions .ROUTE .COMPLEX Qty: 180 2RF Dose Instruction: TAKE 1 TABLET BY MOUTH TWICE A DAY Rx Instructions: TAKE 1 TABLET BY MOUTH TWICE A DAY Date of admission: 07/08/25 16:14 Primary Care Provider: Praminder Rojas Admitting Provider: Nicki Valadez Attending physician on admission: Nicki Valadez Condition: Stable Hospitalist MIPS Heart Failure (Exclusion) Patient has history of Heart Transplant or Left Ventricular Assistive Device?: No IF YES, STOP HERE Heart Failure (Qualifier) Patient has current or prior documentation of LVEF less than or equal to 40%, or mod/servere depressed LVSF?: No IF NO, STOP HERE
[2025-07-25] MEDS: RIVAROXABAN 20 MG TABLET PO (17:02)
--- NOTE | 2025-07-26 09:57 | PC.NURSE ---
Norovirus is negative.
--- NOTE | 2025-07-31 08:18 | PC.NURSE ---
Blood cx show no growth. Dr. Kita villalba.
== END 2025-07-25 17:58 | DRG 871 ==
LOC: ANHED 08:08 → ANH3MEDSUR 08:44 → ANHIMU 07-10 10:37 → ANHICU 07-10 14:47 → ANH3MEDSUR 07-16 15:24 → ANHICU 07-21 08:25 → ANHIMU 07-22 16:45
PROVIDERS: Emergency Medicine; General Practice; Internal Medicine; Internal Medicine Pulmonary Disease; Nurse Practitioner; Nurse Practitioner Acute Care; Nurse Practitioner Gerontology; Student in an Organized Health Care Education/Training Program; Admitting Provider General Practice; Emergency Provider Student in an Organized Health Care Education/Training Program; PCP Family Medicine; Visit Provider Internal Medicine
DX: A41.9 Sepsis, unspecified organism (principal); G93.41 Metabolic encephalopathy; J18.9 Pneumonia, unspecified organism; J96.21 Acute and chronic respiratory failure with hypoxia; J96.22 Acute and chronic respiratory failure with hypercapnia; L89.153 Pressure ulcer of sacral region, stage 3; I25.719 Atherosclerosis of autologous vein coronary artery bypass graft(s) with unspecified angina pectoris; J90 Pleural effusion, not elsewhere classified; N39.0 Urinary tract infection, site not specified; J44.0 Chronic obstructive pulmonary disease with (acute) lower respiratory infection; J44.1 Chronic obstructive pulmonary disease with (acute) exacerbation; I48.20 Chronic atrial fibrillation, unspecified; K56.7 Ileus, unspecified; S51.812A Laceration without foreign body of left forearm, initial encounter; W19.XXXA Unspecified fall, initial encounter; E78.5 Hyperlipidemia, unspecified; K52.9 Noninfective gastroenteritis and colitis, unspecified; E11.21 Type 2 diabetes mellitus with diabetic nephropathy; I50.9 Heart failure, unspecified; F03.90 Unspecified dementia, unspecified severity, without behavioral disturbance, psychotic disturbance, mood disturbance, and anxiety; G25.81 Restless legs syndrome; S12.9XXD Fracture of neck, unspecified, subsequent encounter; W19.XXXD Unspecified fall, subsequent encounter; D86.9 Sarcoidosis, unspecified; D50.9 Iron deficiency anemia, unspecified; B96.89 Other specified bacterial agents as the cause of diseases classified elsewhere; M35.3 Polymyalgia rheumatica; K21.9 Gastro-esophageal reflux disease without esophagitis; I87.2 Venous insufficiency (chronic) (peripheral); G47.30 Sleep apnea, unspecified; Z20.822 Contact with and (suspected) exposure to COVID-19; Z86.73 Personal history of transient ischemic attack (TIA), and cerebral infarction without residual deficits; Z99.81 Dependence on supplemental oxygen; Z79.01 Long term (current) use of anticoagulants; Z86.16 Personal history of COVID-19; Z95.5 Presence of coronary angioplasty implant and graft; Z96.653 Presence of artificial knee joint, bilateral; Z95.1 Presence of aortocoronary bypass graft; Z98.1 Arthrodesis status; Z22.322 Carrier or suspected carrier of Methicillin resistant Staphylococcus aureus
CPT/HCPCS: 36415; 36569; 36600; 70450; 71045; 71260; 72125; 74018; 74019; 74177; 80048; 80053; 80202; 81001; 82140; 82274; 82375; 82550; 82805; 82948; 83050; 83605; 83735; 83880; 84100; 84132; 84145; 84439; 84443; 85018; 85025; 85027; 85652; 86140; 86738; 87040; 87045; 87046; 87086; 87186; 87427; 87449; 87493; 87637; 87641; 87798; 87899; 89055; 92610; 93005; 93971; 94002; 94003; 94640; 94762; 96365; 96375; 97110; 97161; 97162; 97165; 97166; 97168; 97530; 97535; 99212; 99285; A9270; C1751; C8929; G0378; G0463; J0283; J0616; J0692; J0696; J1163; J1650; J1815; J1938; J2003; J2270; J2470; J2919; J2997; J3250; J3373; J3475; J3480; J7050; J7512; P9041; Q9957; Q9967

== ENCOUNTER 2025-08-17 10:31 | Inpatient (IN) | payer OTHER, SELFPAY ==
--- OUTSIDE RECORDS SUMMARY | 2025-06-07 05:30 | XMS_ITS ---
Author Organization [facility] Address [address] [place] [address] Care Team Providers Care Category Analyst Name Role Phone Sammie RONDON, Parminder Primary Care Provider Unavail able Filippo Jenkins Unavailable [phone] Allergies Allergen (clinical drug ingredient) Drug/Non Drug Allergy documented on EMR Reaction Allergy Type Onset Date Status Amoxicillin ER Unknown Drug Allergy Ac tive codeine Codeine Unknown Drug Allergy 11/05/2004 Active REASON FOR VISIT 3 month f/u Social History Tobacco Use: Social History Observation Description Date Details (start date - stop date) Never Smoker NA - NA Tobacco Control (Standard) Question Answer Notes Tobacco use: Nonsmoker Encounters Encounter Location Date Provider Diagnosis [facility] [address] [facility] [address] [place] [address] 06/07/2025 Filippo Jenkins Other custodial (current) drug therapy Z79.899 and Other specified rheumatoid arthritis, 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 Assessments Encounter Date Diagnosis (ICD Code) Assessment Notes Treatment Notes Treatment Clinical Notes Section Notes 06/07/2025 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 3 month f/u. * HPI: A dvance Care Planning: No acute joint swelling. No significant AM stiffness, gelling. No significant rash. No significant bruises. No cough. No SOB. No CP. No F/C/S. No major GI upset. Bowels working. Energy OK. Sleep OK. Tolerates meds. Wt. stable. Appetite stable.Saw NS-not candidate for surgery. * ROS: E nergy OK. Sleep OK . * Medical History: A rthritis, Date of Onset: 03/18/2005 ; , Headache, Date of Onset: 11/05/2004 ; , Joint pain, Date of Onset: 11/05/2004 ; . * Family History: M igrated Family History: * Denies Family History . * Social History: T obacco Use: T obacco Control (Standard) T obacco use: N onsmoker. 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 * Allergies: C odeine: Allergy - Onset Date 11/05/2004, Amoxicillin ER. Objective: * Vitals: * Examination: G eneral Examination: P hysical [...] Left Upper Extremity Hand : NS Gait: gait normal . Assessment: * Assessment: 1. 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 * Procedure Codes: G2211 Complex e/m visit add on. * Electronic signature of Wenceslao Jenkins MD on 08/17/2025 at 11:13 AM PROGRAM SERVICES PLANNER Sign off status: Pending * Appointment Provider: Nithin Jenkins MD Date: Generated for Printing/Faxing/eTransmitting on: 10/18/2024 11:13 AM PROGRAM SERVICES PLANNER History and Physical Notes * Examination Category [...] Left Upper Extremity Hand : NS Gait: gait normal
[2025-08-17] VITALS (8 sets, daily range): BP systolic 121–154; BP diastolic 65–89; PULSE 73–94; RESP 16–22; TEMP 36.4–36.6; O2SAT 96–100; BMI 32.1
--- NOTE | ~2025-08-17 | CT_ITS ---
EXAMINATION: CT diagnostic chest wo con DATE: 08/21/2025 14:01 INDICATION: Sarcoidosis TECHNIQUE: Computed tomography (CT) of the chest was performed without intravenous contrast. The dose-length product was 170.80 mGy-cm. Automated exposure control and iterative reconstruction technique were employed. COMPARISON: CT dated 07/07/2025 and chest x-ray dated 08/17/2025 FINDINGS: Status post median sternotomy for CABG. Heart size normal. Small pleural effusions. Borderline size mediastinal lymph nodes, likely reactive. Calcified granuloma right mid thorax. Upper abdomen is unremarkable. Extensive there is extensive groundglass opacification bilaterally with upper lobe prep 1 6. There are miliary nodules of the upper lobes. Moderate-severe there is lower cervical spinal fusion changes with discectomy at C5-6. Thoracic spondylosis. IMPRESSION: 1. Upper lobe predominant groundglass opacification with diffuse miliary nodules. Differential diagnosis in order for likelihood include atypical or opportunistic infection, hypersensitivity pneumonitis and inflammatory or granulomatous disease such as sarcoidosis. Diffuse metastatic disease less likel y without known primary malignancy. 2: Small pleural effusions. 3: Borderline mediastinal lymphadenopathy which may be reactive. Reviewed, dictated and finalized at location O. 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 Upper lobe predominant groundglass opacification with diffuse miliary nodule s. Differential diagnosis in order for likelihood include atypical or opportuni stic infection, hypersensitivity pneumonitis and inflammatory or granulomatous disease such as sarcoidosis. Diffuse metastatic disease less likely without kno wn primary malignancy. 2: Small pleural effusions. 3: Borderline mediastinal lymphadenopathy which may be reactive.
--- NOTE | ~2025-08-17 | XR_ITS ---
EXAMINATION: XR chest 1V portable DATE: 08/17/2025 10:57 INDICATION: COPD TECHNIQUE: A single frontal view of the chest was obtained. COMPARISON: July 21, 2025 FINDINGS: Improved inflation and aeration of the lung bases, however persisting diffuse opacification throughout the left lung suggesting multi lobar pneumonia or pulmonary edema. Heart shadow normal. Sternal retention wires stable in configuration. No pneumothorax or subphrenic free air seen. IMPRESSION: 1. Mild diffuse consolidative changes in the left lung which may represent pneumonia and/or pulmonary edema. Reviewed, dictated and finalized at location A. [employer] CONSULTANT IMPRESSION: 1. Mild diffuse consolidative changes in the left lung which may represent pneu monia and/or pulmonary edema.
--- NOTE | 2025-08-17 10:32 | ECG_ITS ---
Test Date: 2025-08-17 10:31:44 Measurements Intervals Crump Rate: 113 P: 251 SC: 158 QRS: -33 QRSD: 90 T: 21 QT: 329 QTc: 452 Interpretive Statements ECTOPIC ATRIAL TACHYCARDIA LEFT AXIS DEVIATION RIGHT BUNDLE BRANCH BLOCK BASELINE WANDER- V6 ABNORMAL ECG Compared to ECG 07/15/2025 00:57:45 ATRIAL FIBRILLATION NO LONGER PRESENT Electronically Signed On 08-17-2025 13:58:50 TRAUMA COORDINATOR by Miky Sorensen D.O.
[2025-08-17 10:47] LABS: Fractional Inspired Oxygen 36 %; HCO3 VBG 30.9 mEq/l (24.0-30.0); PCO2 VBG 57.4 mmHg (42.0-48.0); pH VBG 7.349 (7.300-7.400)
[2025-08-17 10:48] LABS: Liters per Minute 4.0 LPM; PO2 VBG < 27.0 mmHg (35.0-45.0)
[2025-08-17] MEDS: FUROSEMIDE INJ 40 MG/4 ML VIAL IV PUSH ×2 (11:10→20:45)
[2025-08-17 11:13] LABS: Hematocrit 27.3 % (37.0-47.0); Hemoglobin 8.1 g/dL (12.0-15.0); Immature Granulocyte Percent A 1.9 % (0-0.5); Lymphocytes Absolute Auto 1.26 K/mm3 (0.9-3.2); Mean Corpuscular HGB Conc 29.7 g/dl (32-36); Mean Corpuscular Hemoglobin 25.8 pg (26-34); Mean Corpuscular Volume 86.9 fl (80-100); Nucleated Red Blood Cells Absolute Auto 0.000 K/mm3 (0.0-0.012); Nucleated Red Blood Cells Perc 0.0 % (0.0-0.2); Platelet Count Result 359 k/mm3 (150-375); Red Blood Count 3.14 M/mm3 (4.2-5.4); White Blood Count 9.5 K/mm3 (4.5-10.0)
--- OUTSIDE RECORDS SUMMARY | 2025-08-17 11:13 | XMS_ITS | Clinical Summary ---
Author Organization [facility] Address [address] [place] [address] Care Team Providers Care Torch Brazer Name Role Phone Max Carpenter MD Unavailable [phone] Source Comments [facility],non-owned Affiliates and Associated Physician Practices is amultiple site organization consisting of ambulatory clinics and hospital sitesin [place], [place], [place] and [place]. This disclosure is being madepursuant to the Care Everywhere program and may not contain all information available regarding this patient. Last updated 18.[facility] Allergies Active Allergy Reactions Criticality Noted Date [...] on file Legal Sex Female 6:12 AM STRIP CATCHER Gender Identity Not on file Sexual Orientation Not on file Last Filed Vital Signs Vital Sign Reading Time Taken Comments Blood Pressure 134/68 07/22/2011 4:17 PM STRIP CATCHER Pulse 81 07/22/2011 4:17 PM STRIP CATCHER Temperature 36.9 C (98.5 F) 07/22/2011 4:17 PM STRIP CATCHER Respiratory Rate 18 07/22/2011 4:17 PM STRIP CATCHER Oxygen Saturation 96% 07/22/2011 4:17 PM STRIP CATCHER Inhaled Oxygen Concentration - - Weight 104.3 kg (230 lb) 07/22/2011 6:45 AM STRIP CATCHER Height 160 cm (5' 3) 07/22/2011 6:45 AM STRIP CATCHER Body Mass Index 40.74 07/22/2011 6:45 AM STRIP CATCHER Plan of Treatment Health Maintenance Due Date [...] 50+ (1 of 1 - PCV) 02/12/2002 Respiratory Syncytial Virus (RSV) Vaccine Pt: or over 60 yrs (1 - Risk 50-74 years 1-dose series) 02/12/2002 ZOSTER VACCINE (1 of 2) 02/12/2002 DEPRESSION SCREENING 08/31/2024 MEDICARE AWV CALENDAR YEAR 2024 COVID-19 VACCINE (1 - 2024-2 6 season) 2025 INFLUENZA VACCINE (#1) 2025 HEPATITIS [...] age to complete this topic Insurance [facility]IC[facility] ADV SELF PAY NO INSURANCE Member Subscriber Plan / Payer (Ef fective for All Dates) Name:Laura Valenzuela Member ID:Not on file Relation to Subscriber:Not on file Name:LAURA VALENZUELA Subscriber ID:Not on file Address: [address] [place] [address] Payer ID:Not on file Group ID:Not on file Type:Self Pay Address: [place], [place] Advance Directives * FULL RESUSCITATION (Latest Code Status on File) Date Activated Date Inactivated Comments 07/22/2011 12:27 PM 07/23/2011 6:58 AM Care Teams Torch Brazer Relationship Specialty Start Date End Date Max Carpenter MD Physician Rheumatology 08/10/11
--- OUTSIDE RECORDS SUMMARY | 2025-08-17 11:13 | XMS_ITS | Clinical Summary ---
[facility] Address [address] [place] [address] Care Team Providers Care Pediatric Social Worker Name Role Phone Parminder Rojas MD Primary Care Provider [phone] Allergies Active Allergy Reactions Criticality Noted Date [...] vaccine quadrivalent 2019-,65 yr+,,PF, (Fluzone HighDose Quad - PF) 240 mcg/0.7 mL Syringe syringe Fluzone [...] - 1-dose 75+ series) 02/12/[address] [place] [address] AETNA PPO [facility] Care Teams Pediatric Social Worker Relationship Specialty Start Date End Date Parminder Rojas MD [address] [place] [address] PCP - General Family Practice 02/04/22
--- OUTSIDE RECORDS SUMMARY | 2025-08-17 11:13 | XMS_ITS | Encounter Summary ---
Author Organization [facility] Address [address] [place] [address] Care Team Providers Care Regasification Plant Operator Name Role Phone Filippo Carpenter MD Unavailable [phone] Encounter Details Date Type Department Care Team (Late st Contact Info) Description 07/19/2020 Lab Requisition [facility] [address] [facility] [place] [address] Zora Gilmore MD [address] [facility] [address] DE[place] [address] Social History Tobacco Use Types Packs/Day Years Used Date Smoking Tobacco: Never Alcohol Use Standard Drinks/Week Comments No 0 (1 standard drink = 0.6 oz pur e alcohol) Comments No Sex and Gender Information Value Date Recorded Sex Assigned at Not on file Legal Sex Female 6:12 AM SPANISH LITERATURE PROFESSOR Gender Identity Not on file Sexual Orientation Not on file documented as of this encounter Plan of Treatment Not on file documented as of this encounter Procedures Procedure Name Priority Date/Time Associated Diagnosis Comments DERMATOPATHOLOGY Routine 07/18/2020 12:0 0 AM SPANISH LITERATURE PROFESSOR documented in this encounter Results * DERMATOPATHOLOGY (07/18/2020 12:00 AM SPANISH LITERATURE PROFESSOR) Case Report Dermatopathology Report Case: [id number] Authorizing Provider: Zora Gilmore MD Collected: 07/18/2020 12:00 AM Ordering Location: [facility] Received: 07/19/2020 05:55 AM Pathologist: Miranda Brennan MD Specimen: Skin, nose tip 0 7:[address] [facility] DERMATOPATHOLOGY LABORATORY Final Diagnosis Specimen A. SKIN, nose tip: ACTINIC KERATOSIS (L57.0) (see microscopic description) 0 7:[address] [facility] DERMATOPATHOLOGY LABORATORY at [address] [facility] Clinical History R/O BCC,AK 0 7:[address] [facility] DERMATOPATHOLOGY LABORATORY Gross Description Specimen A: Received is one formalin filled container labeled with the patient's name and designated nose tip. The specimen consists of a shave biopsy measuring 3x3x1 mm. Jar 0. 0 7:[address] [facility] DERMATOPATHOLOGY LABORATORY Microscopic Description Specimen A. SKIN, nose tip: There is focal parakeratosis. The lower half of the epidermis shows disorderly maturation of keratinocytes with nuclear pleomorphism. Additional deeper sections were obtained and reviewed. 0 7:[address] [facility] DERMATOPATHOLOGY LABORATORY Disclaimer An external [...] purposes. Billing Codes Specimen Charges Stain Charges [id number] 1 0 7:17 PM SPANISH LITERATURE PROFESSOR DERMATOPATHOLOGY LABORATORY Embedded Images 0 7:[address] [facility] DERMATOPATHOLOGY LABORATORY Pathology/Cytolog y TISSUE SPECIMEN FROM SKIN / Unknown 07/18/2020 07/19/2020 5:[address] [facility] us Zora Gilmore MD LAB - PATHOLOGY/CYTOLOGY ORD ERABLES Final Result DERMATOPATHOLOGY LABORATORY [facility] - Department of Dermatology [address], [address] [phone] documented in this encounter Visit Diagnoses Not on filedocumented in this encounter Care Teams Regasification Plant Operator Relationship Specialty Start Date End Date Filippo Carpenter MD Physician Rheumatology 08/10/11 documented as of this encounter
--- OUTSIDE RECORDS SUMMARY | 2025-08-17 11:13 | XMS_ITS | Encounter Summary ---
Author Organization [facility] Address [address] [place] [address] Care Team Providers Care Digital Media Analyst Name Role Phone Filippo Carpenter MD Unavailable [phone] Encounter Details Date Type Department Care Team (Late st Contact Info) Description 01/27/2019 Lab Requisition [facility] [address] [facility] [place] [address] Bettina Espino DO [address] [facility] [address] [place] [address] Social History Tobacco Use Types Packs/Day Years Used Date Smoking Tobacco: Never Alcohol Use Standard Drinks/Week Comments No 0 (1 standard drink = 0.6 oz pur e alcohol) Comments No Sex and Gender Information Value Date Recorded Sex Assigned at Not on file Legal Sex Female 6:12 AM DINKEY BRAKEMAN Gender Identity Not on file Sexual Orientation Not on file documented as of this encounter Plan of Treatment Not on file documented as of this encounter Procedures Procedure Name Priority Date/Time Associated Diagnosis Comments DERMATOPATHOLOGY Routine 01/26/2019 12:0 0 AM CDT documented in this encounter Results * DERMATOPATHOLOGY (01/26/2019 12:00 AM CDT) Case Report Dermatopathology Report Case: [id number] Authorizing Provider: Bettina Espino DO Collected: 01/26/2019 [...] The specimen consists of a shave measuring [id number]. Jar 0. 12:24 PM CDT DERMATOPATHOLOGY LABORATORY [...] purposes. Billing Codes Specimen Charges Stain Charges [id number] 1 12:24 PM CDT DERMATOPATHOLOGY LABORATORY Embedded Images 12:24 PM CDT DERMATOPATHOLOGY LABORATORY Pathology/Cytolog y TISSUE SPECIMEN FROM SKIN / Unknown 01/26/2019 01/27/2019 10:42 AM CDT Bettina Espino DO LAB - PATHOLOGY/CYTOLOGY ORDERABLES Final Result DERMATOPATHOLOGY LABORATORY [facility] - Department of Dermatology [address] [place] [address], 5th Floor Lab [address] [phone] documented in this encounter Visit Diagnoses Not on filedocumented in this encounter Care Teams Digital Media Analyst Relationship Specialty Start Date End Date Filippo Carpenter MD Physician Rheumatology 08/10/11 documented as of this encounter
--- OUTSIDE RECORDS SUMMARY | 2025-08-17 11:14 | XMS_ITS | Clinical Summary ---
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 Active albuterol 90 mcg/actuation inhaler albuterol sulfate HFA 90 mcg/actuation aerosol inhaler Active amLODIPine (NORVASC) 5 MG tablet once daily. Active atorvastatin (LIPITOR) 40 MG tablet atorvastatin 40 mg tablet Active cholecalciferol , vitamin D3, 50 mcg (2,000 unit) tab Active diazePAM (VALIUM) 5 MG tablet Take 5 mg by mouth 3 (three) times a day as needed. 1 Active diphenoxylate-a tropine (LOMOTIL) 2.5-0.025 mg tablet 2 Active famotidine (PEPCID) 20 MG tablet famotidine 20 mg tablet Active fenofibrate (TRIGLIDE) 160 MG tablet Take 160 mg by mouth. Active furosemide (LASIX) 40 MG tablet furosemide 40 mg tablet 4 Active losartan (COZAAR) 50 MG tablet TAKE 1 TABLET BY MOUTH EVERY DAY 2 Active metoprolol (LOPRESSOR) 25 MG tablet metoprolol tartrate 25 mg tablet Active pantoprazole (PROTONIX) 40 MG tablet TAKE 1 TABLET BY MOUTH EVERY DAY IN THE MORNING 2 Active potassium chloride SA (KLOR-CON) 20 MEQ tablet 20 mEq. 4 Active ranitidine (ZANTAC) 300 MG tablet once daily. Active sotaloL (BETAPACE) 80 MG tablet TAKE 1 TABLET BY MOUTH TWICE A DAY 2 Active warfarin (COUMADIN) 1 MG tablet TAKE 1 TABLET BY MOUTH EVERY DAY 2 Active atenoloL (TENORMIN) 25 MG tablet once daily. Active Social History Tobacco Use Types Packs/Day Years Used Date Smoking Tobacco: Never Smokeless Tobacco: Never Tobacco Cessation:Counseling Given: Not Answered Comments No Sex and Gender Information Value Date Recorded Sex Assigned at Not on file Legal Sex Female 9:55 AM EDT Gender Identity Not on file Sexual Orientation Not on file Last Filed Vital Signs Vital Sign Reading Time Taken Comments Blood Pressure 144/80 11/15/2021 12:56 PM EDT Pulse 96 10/03/2022 11:34 AM EST Temperature 35.8 C (96.5 F) 10/03/2022 11:32 AM EST Respiratory Rate 18 10/03/2022 11:32 AM EST Oxygen Saturation 89% 10/03/2022 11:34 AM EST Inhaled Oxygen Concentration - - Weight - - Height - - Body Mass Index - - Plan of Treatment Health Maintenance Due Date Last Done Comments Colorectal Cancer: COLONOSCO PY Screening every 10 yrs (or Modifier) 1950 Depression: Screening Annual ly using PHQ-2/9 in Adults 18 yrs or above (or HM Modifier)([facility]) 02/12/1970 Hepatitis C Virus Infection in Adolescents and Adults: Screening (or Modifier) ([facility]) 02/12/1970 MARC Screening: Once using ST OP-BANG Questionnaire for Adults with Conditions or high BMI([facility]) 02/12/1970 SDOH Screening Reminder: Krysta dunbar for all adults ([facility]) 02/12/1970 Tobacco Smoking Cessation: i n Adults excluding Women: Behavioral and Pharmacotherapy Interventions ([facility]) 02/12/1970 DTaP/Tdap/Td Vaccines ([facility]) (1 - Tdap) 02/12/1971 Colorectal Cancer Screening 45 -75 Yrs (or HM Modifier) 02/12/1997 Colorectal Cancer: FLEXIBLE SIGMOIDOSCOPY Screening every 5 yrs 02/12/1997 Colorectal Cancer: Fecal Imm unochemical Test (FIT) Annually [facility] 02/12/1997 Colorectal Cancer: High-sens itivity gFOBT Screening Annually [facility] 02/12/1997 Colorectal Cancer: Stool Col oguard Screening every 3 yrs 02/12/1997 Colorectal Cancer:CT Colonog dario Screening every 5 yrs 02/12/1997 Pneumococcal Vaccination Scr eening: Patients 50+ yrs of age ([facility]) (1 of 1 - PCV) 02/12/2002 Zoster/Shingles Vaccine Seri es Screening: Adults aged 18+ yrs (or HM Modifiers)([facility]) (1 of 2) 02/12/2002 Osteoporosis Screening to Pr event Fractures: Women aged 65 years+ ([facility]) 02/12/2017 Breast Cancer: Screening Krysta ually age 50-74 yrs (or HM Modifier)([facility]) 12/18/2023 12/17/2022, 12/17/2022 Flu Vaccination: Ages 65+: Y early High Dose Recommended (or Modifier)([facility]) 03/31/2025 06/15/2020 COVID-19 Vaccine Screening: Initial Series and Booster Status ([facility]) (2024- season) 2025 12/20/2020, 11/29/2020 RSV Vaccines (1 - 1-dose 75+ series) 02/12/2027 Medical Devices Not on file Insurance [employer] MEDICARE Care Teams Pharmaceutical Sales Relationship Specialty Start Date End Date No, Pcp, 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
--- OUTSIDE RECORDS SUMMARY | 2025-08-17 11:14 | XMS_ITS | Patient Health Record ---
Author Organization [facility] , Address [address] [place] [address] Care Team Providers Care Institutional Aide Name Role Phone Parminder Rojas Primary Care Provider Riky Doran Unavailable [phone] Bobo Bowen Unavailable Unavailable Allergies Allergen (clinical drug ingredient) Drug/Non Drug Allergy documented on EMR Reaction Allergy Type Onset Date Status codeine Codeine Unknown Drug Allergy Active Reason For Referral No Information Medications Medication SIG (Take, Route, Frequency, Duration) Notes Start Date End Date Status Furosemide Active Pantoprazole Sodium Active Atorvastatin Calcium Active Warfarin Sodium Acti ve tiZANidine HCl Activ e Potassium Active Niacin Active ProAir HFA Active Sotalol HCl Active Vitamin D Active Valium 5 MG Tablet 1 tablet as needed 1 hour prior to test. repeat 15 minutes before test Orally Twice a day 01/22/2017 Active Leflunomide Active Aspirin Active Pramipexole Dihydrochloride Active predniSONE 10 MG Tablet 1 tablet with fo od or milk Orally Twice a day; Duration: 5 days 01/08/2017 Active Social History Section Notes: with 2 children. Den ies alcohol or tobacco use. with 2 children. Den ies alcohol or tobacco use. Problems Problem Type SNOMED Code ICD Code Onset Dates Problem Status W/U Status Risk Notes Problem Orthopedic aftercare (Z47.89) Active confirmed Plan Of Treatment Pending Test Test Name Order Date Cervical Anterior Discectomy and Fusion 12/29/2016 Insurance Providers Payer Name Payer Address Payer Phone Subscriber Number Group Number Insured Name Patient Relationship to Insured Coverage Start Date Coverage End Date [employer] PPO [address] [place] [address] [id number] Laura Clifford Self - patient is the insured Medical (General) History Medical History History ICD Code Hypertension Heart disease Bronchitis RA Hyperlipidemia Restless leg syndrome COPD Atrial fibrillation Acid reflux Myocardial infarction Surgical History Surgery Date(Month/Year) Right shoulder x 2 Total knee arthroplasty CTR Lumbar surgery Foot surgery Achilles' repair Mitral valve repair CABG
--- OUTSIDE RECORDS SUMMARY | 2025-08-17 11:14 | XMS_ITS | Clinical Summary ---
Author Organization [facility] Address [address] [facility] [address] [place] [address] Phone Care Team Providers Care Lab Nurse Name Role Phone Parminder Rojas MD Primary Care Provider [phone] Allergies Active Allergy Reactions Criticality Noted Date [...] UNIT Tablet Take by mouth. Activ e Belen-3 Fatty Acids (FISH OIL PO) Take by [...] complete this topic Human Papillomavirus (HPV) Immunization (No Doses Required) Completed Meningococcal Immunization (ACWY) Aged Out No longer [...] Maintenance Insurance MEDICARE C [employer]ET[employer] Care Teams Lab Nurse Relationship Specialty Start Date End Date Parminder Rojas MD [address] [place] [id number] PCP - General Family Medicine 04/08/18
--- OUTSIDE RECORDS SUMMARY | 2025-08-17 11:14 | XMS_ITS | Patient Health Record ---
Author Organization [facility] Address [address] [place] [address] Care Team Providers Care Deputy Sheriff Lieutenant Name Role Phone Sammie RONDON, Parminder Primary Care Provider Unavail able Filippo Jenkins Unavailable [phone] Allergies Allergen (clinical drug ingredient) Drug/Non Drug Allergy documented on EMR Reaction Allergy Type Onset Date Status Amoxicillin ER Unknown Drug Allergy Ac tive codeine Codeine Unknown Drug Allergy 11/05/2004 Active Results Component Value Reference Range Notes eGFR Reviewed date:03/04/2025 09:01:05 AM Interpretation: Performing Lab:[facility] , [address] [facility] [address] Notes/Report: eGFR >90 >=60 mL/min/1.73 m2 Interpretive [...] Automated Reviewed date:03/04/2025 09:00:49 AM Interpretation: Performing Lab:[facility] , [address] [facility]. [place] [address] Notes/Report: Neut Abs 4.90 1.50-6.50 K/cumm ImmGran Abs 0.05 0.00-0.10 K/cumm Lymphocyte Abs 1.39 0.80-3.30 K/cumm [place] Abs 1.04 0.20-0.80 K/cumm Eos Abs 0.45 [...] Interpretive Data was last revised on 2017. [place] Pct 13.1 Interpretive Data Percent cell count [...] Interpretive Data was last revised on 2017. Differential Automated Reviewed date:12/01/2024 12:56:18 PM Interpretation: Performing Lab:[facility] , [address] [place] [address] Notes/Report: Neut Abs 4.61 1.50-6.50 K/cumm ImmGran Abs 0.05 0.00-0.10 K/cumm Lymphocyte Abs 1.45 0.80-3.30 K/cumm [place] Abs 0.88 0.20-0.80 K/cumm Eos Abs 0.26 [...] Interpretive Data was last revised on 2017. [place] Pct 12.0 Interpretive Data Percent cell count [...] Panel Reviewed date:12/01/2024 12:55:55 PM Interpretation: Performing Lab:[facility] , [address] [place] [address]. [facility] [address] Notes/Report: Total Bilirubin 0.4 0.1-1.2 mg/dL Bilirubin, Direct 0.2 0.1-0.3 mg/dL Plasma Total Protein 6.4 6.5-8.5 g/dL Albumin 3.6 3.5-5.0 g/dL Alkaline Phosphatase 53 40-130 Units/L ALT 14 7-45 Units/L AST 17 10-45 Units/L Creatinine Reviewed date:12/01/2024 12:56:00 PM Interpretation: Performing Lab:[facility] , [address] [place] [address]. [place] [address] Notes/Report: Creatinine 0.74 0.60-1.10 mg/dL CBC w auto diff Reviewed date:12/01/2024 12:56:05 PM Interpretation: Performing Lab:[facility] , [address] [place] [address]. [place] [address] Notes/Report: WBC 7.33 3.80-9.90 K/cumm Hgb 13.0 11.9-15.5 g/dL Hct 40.6 35.6-45.5 % Platelet Ct 273 150-400 K/cumm MPV 11.9 9.1-12.3 fL RBC 4.41 3.90-5.20 M/cumm MCV 92.1 81.3-96.4 fL MCH 29.5 27.1-33.3 pg MCHC 32.0 32.3-35.7 g/dL RDW CV 14.8 11.1-14.9 % RDW SD 48.4 35.7-48.1 fL NRBC Abs Auto 0.00 0.00-0.01 K/cumm eGFR Reviewed date:12/01/2024 12:56:10 PM Interpretation: Performing Lab:[facility] , [address] [place] [address]. [place] [address] Notes/Report: eGFR 86 >=60 mL/min/1.73 m2 Approach [...] eGFR Reviewed date:09/03/2024 03:29:31 PM Interpretation: Performing Lab:[facility] , [address] [place] [address]. [place] [address] Notes/Report: eGFR >90 >=60 mL/min/1.73 m2 Interpretive [...] Automated Reviewed date:09/03/2024 03:29:31 PM Interpretation: Performing Lab:[facility] , [address] [place] [address]. [place] [address] Notes/Report: Neut Abs 4.5 1.5-6.5 K/cumm ImmGran Abs 0.0 0.0-0.1 K/cumm Lymphocyte Abs 1.3 0.8-3.3 K/cumm [place] Abs 0.8 0.2-0.8 K/cumm Eos Abs 0.1 [...] Interpretive Data was last revised on 2017. [place] Pct 12.1 Interpretive Data Percent cell count [...] Panel Reviewed date:03/07/2025 04:43:01 PM Interpretation: Performing Lab:[facility] , [address] [place] [address]. [facility] [address] Notes/Report: Total Bilirubin 0.7 0.1-1.2 mg/dL Bilirubin, Direct 0.4 0.1-0.3 mg/dL Plasma Total Protein 6.5 6.5-8.5 g/dL Albumin 3.5 3.5-5.0 g/dL Alkaline Phosphatase 357 40-130 Units/L ALT 88 7-45 Units/L AST 78 10-45 Units/L Creatinine Reviewed date:03/04/2025 08:59:24 AM Interpretation: Performing Lab:[facility] , [address] [place] [address]. [facility] [address] Notes/Report: Creatinine 0.69 0.60-1.10 mg/dL CBC w auto diff Reviewed date:03/06/2025 08:07:52 AM Interpretation: Performing Lab:[facility] , [address] [place] [address]. [facility] [address] Notes/Report: WBC 7.93 3.80-9.90 K/cumm Hgb 12.3 11.9-15.5 g/dL Hct 39.5 35.6-45.5 % Platelet Ct 268 150-400 K/cumm MPV 12.3 9.1-12.3 fL RBC 4.28 3.90-5.20 M/cumm MCV 92.3 81.3-96.4 fL MCH 28.7 27.1-33.3 pg MCHC 31.1 32.3-35.7 g/dL RDW CV 16.5 11.1-14.9 % RDW SD 53.5 35.7-48.1 fL NRBC Abs Auto 0.00 0.00-0.01 K/cumm Hep Func Panel Reviewed date:09/03/2024 03:29:31 PM Interpretation: Performing Lab:[facility] , [address] [place] [address]. [facility] [address] Notes/Report: Total Bilirubin 0.4 0.1-1.2 mg/dL Bilirubin, Direct 0.2 0.1-0.3 mg/dL Plasma Total Protein 6.2 6.5-8.5 g/dL Albumin 4.1 3.5-5.0 g/dL Alkaline Phosphatase 50 40-130 Units/L ALT 16 7-45 Units/L AST 18 10-45 Units/L Creatinine Reviewed date:09/03/2024 03:29:31 PM Interpretation: Performing Lab:[facility] , [address] [place] [address]. [facility] [address] Notes/Report: Creatinine 0.68 0.60-1.10 mg/dL CBC w auto diff Reviewed date:09/03/2024 03:29:31 PM Interpretation: Performing Lab:[facility] , [address] [place] [address]. [facility] [address] Notes/Report: WBC 6.8 3.8-9.9 K/cumm Hgb 13.9 [...] yet revi ewed by provider) Interpretation: Performing Lab:[facility] , [address] [facility] [address] Notes/Report: Total Bilirubin 0.6 0.1-1.2 mg/dL Bilirubin, [...] Duration: 28 Days Active Vitamin D (Ergocalciferol) 52201 UNIT Oral Active Sotalol HCl 80 MG [...] or upper arm rotating injection sites Subcutaneous [id number] Not-Taking Pravastatin Sodium 10 MG take 1 [...] W/U Status Risk Notes Problem Rheumatoid arthritis (01886981) Other specified rheumatoid arthritis, 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 Problem Long-term current use of drug therapy (496096951) Other intermediate (current) drug therapy (Z79.899) Active confirmed Problem Rheumatoid arthritis (94854124) Rheumatoid arthritis, unspecified (M06.9) 5 Active confirmed Vital Signs Heart Rate 114 /min 03/14/2025 Temperature 98.1 degrees Fahrenheit 03/14/2025 Blood pressure diastolic 80 mm Hg 03/14/2025 Oximetry 83 % 03/14/2025 Height-cm 160.02 cm 03/14/2025 Weight-kg 73.94 kg 03/14/2025 Height 63 in 03/14/2025 Blood pressure systolic 160 mm Hg 03/14/2025 Weight 163 lbs 03/14/2025 BMI 28.87 kg/m2 03/14/2025 Encounters Encounter Location Date Provider Diagnosis 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 supervisor (current) drug therapy (ICD-10 - Z79.899) 03/02/2025 Other intermediate (current) drug therapy (ICD-10 - Z79.899) 03/14/2025 Other specified rheumatoid arthritis, multiple sites (ICD-10 - M06.89) 03/14/2025 Other intermediate (current) drug therapy (ICD-10 - Z79.899) 03/14/2025 [...] Date Essence [address] [place] [address] [id number] Laura Clifford Self - patient is the insured [employer] [address] [place] [id number] Laura Clifford Self - patient is the insured 1 DO NOT USE [id number] Laura Clifford Self - patient is the insured 8 [employer] Ppo [address] [address] [place] [address] [phone] [id number] Laura Clifford Self - patient is the insured 2 [employer] [address] [address] [place] [address] [id number] Laura Clifford Self - patient is the insured [employer] Medicare Ppo [address] [place] [address] [id number] Laura Clifford Self - patient is the insured Medical (General) History Surgical History Surgery Date(Month/Year) Hospitalization History Reason Date(Month/Year)
--- OUTSIDE RECORDS SUMMARY | 2025-08-17 11:15 | XMS_ITS | Clinical Summary ---
Author Organization [facility] Address [address] [place] [address] Care Team Providers Care Crm Administrator Name Role Phone Parminder Rojas MD Primary Care Provider [phone] Yannick Guevara MD Unavailable Ayde Peña MD Unavailable [phone] Sadia Renae MD Unavailable [phone] Allergies Active Allergy Reactions Criticality Noted Date [...] 3 (three) times a day with meals Active blood-glucose meter kit Use as directed. Active lancets misc Use as directed up to 4 times a day. Active blood glucose diagnostic (glucose blood) strip Use as directed up to four times a day. Active insulin glargine (LANTUS) 100 unit/mL (3 mL) pen for injection Inject 10 Units under the skin daily Active pen needle, diabetic 32 gauge x [...] 06/20/2025 Assessment & Plan (07/03/2025 7:24 AM PARTS CLERK): - On 2 L baseline. Currently on 3L - Prednisone 10 mg q day - On brovena (Arformoterol) Assessment & Plan (07/02/2025 9:16 AM PARTS CLERK): - On 2 L baseline. Currently on [...] 06/11/2025 Assessment & Plan (07/03/2025 9:15 AM PARTS CLERK): - On home losartan & amplodipine. Replete potassium as necessary. Patient on potassium replacement normally at home. - metoprolol tartrate 25 mg BID - Xarelto held until 2 wks post-op per NSGY (surgery was 06/26) - Lovenox 40 mg SQ q. Pm - on pravastatin Assessment & Plan (07/02/2025 9:16 AM PARTS CLERK): - On home losartan & amplodipine. Replete [...] 06/07/2025 Assessment & Plan (07/03/2025 7:24 AM PARTS CLERK): - manage underlying conditions - PT/OT - Thin liquids and aspiration precautions per speech (thin liquids, small bites normal food, upright when eating). Assessment & Plan (07/02/2025 9:16 AM PARTS CLERK): - manage underlying conditions - PT/OT - [...] obtain the cervical spine MRI obtained at [facility] this summer for further evaluation. Told he [...] obtain the cervical spine MRI obtained at [facility] this summer for further evaluation. Told he [...] obtain the cervical spine MRI obtained at [facility] this summer for further evaluation. He asked [...] obtain the cervical spine MRI obtained at [facility] this summer for further evaluation. He asked [...] weakness to her upper extremities and cannot shrimp picker her pills her has to give them [...] obtain the cervical spine MRI obtained at [facility] this summer for further evaluation. He asked [...] obtain the cervical spine MRI obtained at [facility] this summer for further evaluation. Told he [...] obtain the cervical spine MRI obtained at [facility] this summer for further evaluation. Told he [...] obtain the cervical spine MRI obtained at [facility] this summer for further evaluation. He asked [...] obtain the cervical spine MRI obtained at [facility] this summer for further evaluation. He asked [...] weakness to her upper extremities and cannot shrimp picker her pills her has to give them [...] obtain the cervical spine MRI obtained at [facility] this summer for further evaluation. He asked [...] medications that can elevate her LFTs. Her shaker screen operator has recommended liver ultrasound and his notes this is not been done yet so will go ahead and obtain liver ultrasound. Trend LFTs, repeat in the a.m.. Chronic respiratory failure with hypoxia 025 Assessment & Plan (07/03/2025 7:24 AM PARTS CLERK): - On 2 L baseline. Currently on 3L - Prednisone 10 mg q day - On brovena (Arformoterol) Assessment & Plan (07/02/2025 9:16 AM PARTS CLERK): - On 2 L baseline. Currently on [...] 06/07/2025 Assessment & Plan (07/03/2025 9:15 AM PARTS CLERK): - Lantus 10 Units q. am - 5 units lispro TID with meals - SSI - Carb consistent diet Assessment & Plan (07/02/2025 9:16 AM PARTS CLERK): - Increased Lantus to 10 Units q. [...] 06/07/2025 Assessment & Plan (07/03/2025 9:15 AM PARTS CLERK): - On home losartan & amplodipine. Replete potassium as necessary. Patient on potassium replacement normally at home. - metoprolol tartrate 25 mg BID - Xarelto held until 2 wks post-op per NSGY (surgery was 06/26) - Lovenox 40 mg SQ q. Pm - on pravastatin Assessment & Plan (07/02/2025 9:16 AM PARTS CLERK): - On home losartan & amplodipine. Replete [...] 06/07/2025 Assessment & Plan (07/03/2025 9:15 AM PARTS CLERK): - On home losartan & amplodipine. Replete potassium as necessary. Patient on potassium replacement normally at home. - metoprolol tartrate 25 mg BID - Xarelto held until 2 wks post-op per NSGY (surgery was 06/26) - Lovenox 40 mg SQ q. Pm - on pravastatin Assessment & Plan (07/02/2025 9:16 AM PARTS CLERK): - On home losartan & amplodipine. Replete [...] her neurosurgeon Dr. Renae. Per his ortho [employer] he will be back Thursday Assessment & Plan (06/09/2025 4:16 PM CDT): Continue on sotalol and Lopressor. Holding her anticoagulation in case surgical intervention pending recommendations of her neurosurgeon Dr. Renae. Per his ortho [employer] he will be back Thursday Assessment & [...] 06/07/2025 Assessment & Plan (07/03/2025 7:24 AM PARTS CLERK): - Pramipexole 0.5 mg PO nightly Assessment & Plan (07/02/2025 9:16 AM PARTS CLERK): - Pramipexole 0.5 mg PO nightly Assessment [...] 05/08/2025 Assessment & Plan (07/03/2025 9:15 AM PARTS CLERK): # s/p C2-6 laminectomy - pain management: Acetaminophen, Oxycodone, Morphine, Robaxin PRN - Patient has been using only acetaminophen. Is not interested in other options. Assessment & Plan (07/02/2025 9:16 AM PARTS CLERK): # s/p C2-6 laminectomy - pain management: [...] obtain the cervical spine MRI obtained at [facility] this summer for further evaluation. Told he [...] obtain the cervical spine MRI obtained at [facility] this summer for further evaluation. Told he [...] obtain the cervical spine MRI obtained at [facility] this summer for further evaluation. He asked [...] obtain the cervical spine MRI obtained at [facility] this summer for further evaluation. He asked [...] weakness to her upper extremities and cannot shrimp picker her pills her has to give them [...] obtain the cervical spine MRI obtained at [facility] this summer for further evaluation. He asked [...] 05/08/2025 Assessment & Plan (07/03/2025 7:24 AM PARTS CLERK): - leflunomide held per pulm- c/f pulmonary toxicity Assessment & Plan (07/02/2025 9:16 AM PARTS CLERK): - leflunomide held per pulm- c/f pulmonary [...] 03/2025 Assessment & Plan (07/03/2025 7:24 AM PARTS CLERK): - On 2 L baseline. Currently on 3L - Prednisone 10 mg q day - On brovena (Arformoterol) Assessment & Plan (07/02/2025 9:16 AM PARTS CLERK): - On 2 L baseline. Currently on [...] Encounters Date Type Department Care Team Description 08/13/2025 Documentation [facility] Operating Room [address] [place] [phone] Sadia Renae MD 07/04/2025 Home Care Visit [address] [address] [address] [place] [address] Ernestina Hsu, PT PT VIRTUAL NON OASIS DISCHARGE 06/26/2025 2:31 PM CDT Anesthesia Event [facility] Operating Room [address] [place] [address] [phone] Jhonathan Gaytan MD Small, Jeffrey Barrett, MD 06/26/2025 12:30 PM CDT - 06/26/2025 5:30 PM CDT Surgery [facility] Operating Room [address] [place] [phone] Sadia Renae MD C2-6 Decompressive Laminectomy, Posterior Spinal Fusion with Instrumentation, Globus Navigation 06/19/2025 10:06 AM CDT Anesthesia Event [facility] - Imaging [address] [place] [phone] Baljinder Morelos MD Artinger, Leslie Anne, CRNA 06/12/2025 1:07 PM CDT Anesthesia Event [facility] Interventional Pulmonology [address] [place] [phone] Atul Nazario MD McCormack, Maribeth J., CRNA 06/12/2025 12:30 PM CDT - 06/12/2025 1:19 PM CDT Surgery [facility] Interventional Pulmonology [address] [place] [phone] Gordo Corrales MD BRONCHOSCOPY WITH TRANSBRONCHIAL BIOPSY 06/11/2025 Home Care Visit [address] [place] [address] Ernestina Hsu, PT PT OASIS TRANSFER W/OUT DC 06/07/2025 9:11 AM CDT - 07/04/2025 3:37 PM PARTS CLERK Hospital Encounter [facility] [address] [place] [phone] Abdirahman Childs, Ananda Quiles MD Berhil, MD Nilo Mccoy, DO Carson Cuevsa Emily Marie, DO Rez, MD Wintson Basilio, Aly Nazario, MD Macias, Jorge Jain, MD Johnston, MD Marvin Andrade, Shawn Farnsworth, Jonas Espinoza MD Rajab, La Blue MD Postprocedural hypotension (Primary Dx); [...] nodules [R91.8]; Chronic respiratory failure with hypoxia ([facility]) [J96.11]; Abnormal chest CT; Acute on chronic respiratory failure with hypoxia (HCC); Atrial fibrillation, unspecified type (HCC); Poor venous access Discharge Disposition: Discharge to [facility] 06/06/2025 10:00 AM CDT Home Care Visit [address] [place] [address] Rachel Cardozo, OT OT REASSESSMENT 06/01/2025 3:00 PM CDT Home Care Visit [address] [place] [address] Sarah Henning, PT PT HOME VISIT 06/01/2025 10:30 AM CDT Home Care Visit [address] [place] [address] Rachel Cardozo, OT OT HOME VISIT 05/30/2025 3:30 PM CDT Home Care Visit [address] [place] [address] Sarah Henning, PT PT HOME VISIT 05/30/2025 Home Care Visit [address] [place] [address] Rachel Cardozo, OT TELEPHONE ENCOUNTER 05/25/2025 2:00 PM CDT Home Care Visit [address] [place] [address] Brenton Fonseca, PT PT HOME VISIT 05/25/2025 12:30 PM CDT Home Care Visit [address] [place] [address] Rachel Cardozo, OT OT HOME VISIT 05/23/2025 4:00 PM CDT Home Care Visit [address] [place] [address] Brenton Fonseca, PT PT HOME VISIT 05/23/2025 12:30 PM CDT Home Care Visit [address] [place] [address] Rachel Cardozo, OT OT HOME VISIT 05/19/2025 1:30 PM CDT Home Care Visit [address] [place] [address] Sarah Henning, PT PT HOME VISIT from Last 3 Months Surgical History Surgery [...] often do you attend chur ch or cheondoism services? Never 06/07/2025 Do you belong to [...] any time in the past [facility], were you homeless or living in a prison (including now)? No 06/07/2025 [facility] Utilities Answer Date Recorded In [...] on file Legal Sex Female 2:00 AM PARTS CLERK Gender Identity Not on file Sexual Orientation Not on file Last Filed Vital Signs Vital Sign Reading Time Taken Comments Blood Pressure 111/66 07/04/2025 8:31 AM PARTS CLERK Pulse 65 07/04/2025 8:31 AM PARTS CLERK Temperature 36.4 C (97.6 F) 07/04/2025 8:31 AM PARTS CLERK Respiratory Rate 16 07/04/2025 8:31 AM PARTS CLERK Oxygen Saturation 98% 07/04/2025 8:31 AM PARTS CLERK Inhaled Oxygen Concentration - - Weight 78.7 [...] Lipid Panel 04/10/2017 04/10/2016, 02/25/2014 Covid-19 Vaccine (4 - 2024-2 6 season) 2025 07/03/2021, 12/20/2020, 11/29/2020 Influenza Vaccine (#1) 2025 , 06/08/2018, 06/22/2017, Additional history exists Hemoglobin A1C 12/07/2025 06/08/2025 Fall Risk Assessment 07/04/2026 07/04/2025 eGFR 07/04/2026 07/04/2025, 11/0 10/2024, 07/02/2025, Additional history exists DTaP/Tdap/Td Vaccine (2 - Td or Tdap) 01/16/2035 01/16/2025 Pneumococcal vaccine 65+ Completed 08/20/2021, 08/01 Medical Devices Implanted Type Area Sleeper Cutter Device Identifier Shelf Expiration Date Model / Serial / Lot Musculoskeletal Transplant Graft Bone Fiber Cortical Kore Fiber 2.5cc Moldable [id number] - [id number] - [id number] Implanted:Qty: 1 on 06/26/2025 by Sadia Renae MD at [facility] N/A: Spine Cervical Musculoskeletal Transplant 03/31/2027 [id number] / [id number] / Musculoskeletal Transplant Graft Bone Fiber Cortical Kore Fiber 2.5cc Moldable [id number] - [id number] - [id number] Implanted:Qty: 1 on 06/26/2025 by Sadia Renae MD at [facility] N/A: Spine Cervical Musculoskeletal Transplant 03/11/2027 [id number] / [id number] / [employer] End Cap Spinal Quartex 3.5-4.0mm Titanium 1149.0001 - [id number] Implanted:Qty: 8 on 06/26/2025 by Sadia Renae MD at [facility] N/A: Spine Cervical [employer] 1149.000 1 / / [employer] Screw Spinal Posterior Cervical Polyaxial Self Drilling Threaded Solid Quartex 3.5x14mm Titanium 1149.3514 - [id number] Implanted:Qty: 4 on 06/26/2025 by Sadia Renae MD at [facility] N/A: Spine Cervical [employer] 1149.351 4 / / [employer] Screw Spinal Posterior Cervical Polyaxial Self Drilling Threaded Solid Quartex 3.5x20mm Titanium 1149.3520 - [id number] Implanted:Qty: 2 on 06/26/2025 by Sadia Renae MD at [facility] N/A: Spine Cervical [employer] 1149.352 0 / / [employer] Catalino Spinal Occipito Cervico Thoracic Prebent Quartex 4.0x45mm Titanium 1149.7545 - [id number] Implanted:Qty: 1 on 06/26/2025 by Sadia Renae MD at [facility] N/A: Spine Cervical [employer] 1149.754 5 / / [employer] Connector Spinal Curved Quartex 4.0x40mm Titanium 1149.7540 - [id number] Implanted:Qty: 1 on 06/26/2025 by Sadia Renae MD at [facility] N/A: Spine Cervical [employer] 1149.754 0 / / [employer] Screw Spinal Posterior Cervical Polyaxial Self Drilling Threaded Solid Quartex 3.5x16mm Titanium 1149.3516 - [id number] Implanted:Qty: 2 on 06/26/2025 by Sadia Renae MD at [facility] N/A: Spine Cervical [employer] 1149.351 6 / / Procedures Procedure Name Priority Date/Time Associated Diagnosis Comments POCT GLUCOSE DEVICE Routine 07/04/2025 12:24 PM PARTS CLERK EGFR Routine 07/04/2025 4:15 AM PARTS CLERK RENAL FUNCTION PANEL Routine 07/04/2025 4:15 AM PARTS CLERK CBC WITHOUT DIFFERENTIAL Routine 025 4:15 AM PARTS CLERK POCT GLUCOSE DEVICE Routine 07/03/2025 8:11 PM PARTS CLERK POCT GLUCOSE DEVICE Routine 07/03/2025 4:26 PM PARTS CLERK POCT GLUCOSE DEVICE Routine 07/03/2025 11:11 AM PARTS CLERK EGFR Routine 07/03/2025 4:19 AM PARTS CLERK RENAL FUNCTION PANEL Routine 07/03/2025 4:19 AM PARTS CLERK CBC WITHOUT DIFFERENTIAL Routine 025 4:19 AM PARTS CLERK POCT GLUCOSE DEVICE Routine 07/02/2025 8:14 PM PARTS CLERK POCT GLUCOSE DEVICE Routine 07/02/2025 4:05 PM PARTS CLERK POCT GLUCOSE DEVICE Routine 07/02/2025 11:21 AM PARTS CLERK POCT GLUCOSE DEVICE Routine 07/02/2025 8:24 AM PARTS CLERK EGFR Routine 07/02/2025 5:49 AM PARTS CLERK RENAL FUNCTION PANEL Routine 07/02/2025 5:49 AM PARTS CLERK CBC WITHOUT DIFFERENTIAL Routine 025 5:49 AM PARTS CLERK POCT GLUCOSE DEVICE Routine 07/01/2025 9:11 PM [...] 4:07 AM CDT CBC WITHOUT DIFFERENTIAL Routine 4:07 AM CDT POTASSIUM LEVEL Timed 06/28/2025 [...] 3:23 AM CDT CBC WITHOUT DIFFERENTIAL Routine 3:23 AM CDT CALCIUM, IONIZED STAT 06/27/2025 [...] VIEWS IP Routine 06/26/2025 7:27 PM CDT NM AN PROCEDURE PLACEHOLDER Routine 06/01 4:27 PM CDT NM AN ELECTIVE ENDOTRACHEAL AIRWAY Routine 06/26/2025 4:27 PM CDT FUSION CERVICAL - POSTERIOR - 4 LEVELS 06/26/2025 2:36 PM CDT Cervical spinal stenosis POCT GLUCOSE DEVICE Routine 06/26/2025 11:10 AM CDT PHOSPHORUS Routine 06/26/2025 11:10 AM CDT POCT GLUCOSE DEVICE Routine 06/26/2025 7:31 AM CDT EGFR Routine 06/26/2025 1:01 AM CDT MAGNESIUM Routine 06/26/2025 1:01 AM CDT CBC WITHOUT DIFFERENTIAL Routine 025 1:01 AM CDT CALCIUM, IONIZED Routine 06/26/2025 [...] SURGICAL PATHOLOGY Routine 06/12/2025 1:42 PM CDT NM AN PROCEDURE PLACEHOLDER Routine 05/31 1:20 PM CDT NM AN ELECTIVE ENDOTRACHEAL AIRWAY Routine 06/12/2025 1:20 [...] 06/08/2025 4:26 PM CDT BLOOD MISC TO VILLARD Routine 06/08/2025 4:26 PM CDT CONDITIONAL USE [...] ECG 12-LEAD STAT 06/07/2025 9:20 AM CDT SERUM LIPID PANEL Routine 04/10/2016 10:35 PM CDT from Last 3 Months or Most Recently Relevant to Health Maintenance Results * (ABNORMAL) POCT glucose (07/04/2025 12:24 PM PARTS CLERK) Pathologist [facility] Glucose, POC 258(H) 70 - 199 mg/dL Comment: For Glucose values <35 mg/dl when Hematocrit is >60 mg/dl,the test may not accurately detect significant hypoglycemia,and testing in the Laboratory should be considered if clinically indicated. Blood 07/04/2025 12:2 4 PM PARTS CLERK 07/04/2025 12:24 PM PARTS CLERK us La Maldonado MD LAB POCT ORDERABLES - DEVICE F inal Result [facility] [address] Department [place] [address] * eGFR (07/04/2025 4:15 AM PARTS CLERK) [facility] eGFR >90 >=60 mL/min/1. 73 m2 [...] last reviewed 2021. Blood 07/04/2025 4:15 AM PARTS CLERK 07/04/2025 4:20 AM PARTS CLERK Nuviashruthi Wetzel Carson MONGE LAB BLOOD ORDERABLES Final R esult Performing Organization Address City/[facility]/ZIP Co de Phone Number [facility] [address] [place] [address] * (ABNORMAL) CBC without differential (07/04/2025 4:15 AM PARTS CLERK) WBC 9.05 3.80 - 9.90 K/cumm Hgb 8.7(L) 11.9 - 15.5 g/dL [facility] Hct 29.0(L) 35.6 - 45.5 % [facility] Plt 182 150 - 400 K/cumm [facility] MPV 12.1 9.1 - 12.3 fL [facility] RBC 3.08(L) 3.90 - 5.20 M/cumm [facility] MCV 94.2 81.3 - 96.4 fL [facility] MCH 28.2 27.1 - 33.3 pg [facility] MCHC 30.0(L) 32.3 - 35.7 g/dL [facility] RDW CV 19.0(H) 11.1 - 14.9 % [facility] RDW SD 64.6(H) 35.7 - 48.1 fL [facility] NRBC abs 0.00 0.00 - 0.01 K/cumm [facility] Blood 07/04/2025 4:15 AM PARTS CLERK 07/04/2025 4:20 AM PARTS CLERK Gordo Corrales MD LAB BLOOD ORDERABLES Fi nal Result Performing Organization Address City/[facility]/ZIP Co de Phone Number [facility] [address] [place] [address] * (ABNORMAL) Renal function panel (07/04/2025 4:15 AM PARTS CLERK) [facility] Sodium 140 135 - 145 mmol/L Potassium, pl 3.4 3.3 - 4.9 mmol/L [facility] Chloride 97 97 - 110 mmol/L [facility] CO2 35(H) 22 - 32 mmol/L [facility] Anion gap 8 2 - 15 mmol/L [facility] BUN 20 6 - 25 mg/dL [facility] Creatinine 0.64 0.60 - 1.10 mg/dL [facility] Glucose 106 70 - 199 mg/dL [facility] Comment: Interpretive Data Fasting glucose >/= 126 [...] 2022. Calcium 8.7 8.5 - 10.3 mg/dL [facility] Phosphorus, pl 2.3 2.3 - 4.5 mg/dL [facility] Albumin 2.8(L) 3.5 - 5.0 g/dL [facility] Blood 07/04/2025 4:15 AM PARTS CLERK 07/04/2025 4:20 AM PARTS CLERK Nuvia Byrd LAB BLOOD ORDERABLES Final R esult [facility] [address] Department [place] [address] * POCT glucose (07/03/2025 8:11 PM PARTS CLERK) [facility] Glucose, POC 148 70 - 199 mg/dL Comment: For Glucose values <35 mg/dl when Hematocrit is >60 mg/dl,the test may not accurately detect significant hypoglycemia,and testing in the Laboratory should be considered if clinically indicated. Blood 07/03/2025 8:11 PM PARTS CLERK 07/03/2025 8:11 PM PARTS CLERK us Jonas Kline MD LAB POCT ORDERABLES - DEVICE Fin al Result Performing Organization Address [facility] de Phone Number [facility] [address] [facility] [place] [address] * POCT glucose (07/03/2025 4:26 PM PARTS CLERK) Glucose, POC 162 70 - 199 mg/dL Comment: For Glucose values <35 mg/dl when Hematocrit is >60 mg/dl,the test may not accurately detect significant hypoglycemia,and testing in the Laboratory should be considered if clinically indicated. Blood 07/03/2025 4:26 PM PARTS CLERK 07/03/2025 4:26 PM PARTS CLERK us Jonas Kline MD LAB POCT ORDERABLES - DEVICE Fin al Result Performing Organization Address [facility] de Phone Number [facility] [address] [facility] [place] [address] * POCT glucose (07/03/2025 11:11 AM PARTS CLERK) Glucose, POC 111 70 - 199 mg/dL Comment: For Glucose values <35 mg/dl when Hematocrit is >60 mg/dl,the test may not accurately detect significant hypoglycemia,and testing in the Laboratory should be considered if clinically indicated. Blood 07/03/2025 11:1 1 AM PARTS CLERK 07/03/2025 11:11 AM PARTS CLERK us Jonas Kline MD LAB POCT ORDERABLES - DEVICE Fin al Result Performing Organization Address [facility] Co de Phone Number [facility] [address] [facility] [place] [address] * eGFR (07/03/2025 4:19 AM PARTS CLERK) eGFR >90 >=60 mL/min/1. 73 m2 Comment: [...] last reviewed 2021. Blood 07/03/2025 4:19 AM PARTS CLERK 07/03/2025 4:42 AM PARTS CLERK us Nuvia Byrd DO LAB BLOOD ORDERABLES Final R esult [facility] [address] Department [place] [address] * (ABNORMAL) CBC without differential (07/03/2025 4:19 AM PARTS CLERK) WBC 9.60 3.80 - 9.90 K/cumm Hgb 8.7(L) 11.9 - 15.5 g/dL [facility] Hct 29.4(L) 35.6 - 45.5 % [facility] Plt 150 150 - 400 K/cumm [facility] MPV 12.7(H) 9.1 - 12.3 fL [facility] RBC 3.13(L) 3.90 - 5.20 M/cumm [facility] MCV 93.9 81.3 - 96.4 fL [facility] MCH 27.8 27.1 - 33.3 pg [facility] MCHC 29.6(L) 32.3 - 35.7 g/dL [facility] RDW CV 18.9(H) 11.1 - 14.9 % [facility] RDW SD 63.4(H) 35.7 - 48.1 fL [facility] NRBC abs 0.00 0.00 - 0.01 K/cumm [facility] Blood 07/03/2025 4:19 AM PARTS CLERK 07/03/2025 4:42 AM PARTS CLERK us Gordo Corrales MD LAB BLOOD ORDERABLES Fi nal Result [facility] [address] Department [place] [address] * (ABNORMAL) Renal function panel (07/03/2025 4:19 AM PARTS CLERK) Sodium 137 135 - 145 mmol/L Potassium, pl 3.3 3.3 - 4.9 mmol/L [facility] Chloride 96(L) 97 - 110 mmol/L [facility] CO2 35(H) 22 - 32 mmol/L [facility] Anion gap 6 2 - 15 mmol/L [facility] BUN 20 6 - 25 mg/dL [facility] Creatinine 0.56(L) 0.60 - 1.10 mg/dL [facility] Glucose 118 70 - 199 mg/dL [facility] Comment: Interpretive Data Fasting glucose >/= 126 [...] 2022. Calcium 8.4(L) 8.5 - 10.3 mg/dL [facility] Phosphorus, pl 1.9(L) 2.3 - 4.5 mg/dL [facility] Albumin 2.9(L) 3.5 - 5.0 g/dL [facility] Blood 07/03/2025 4:19 AM PARTS CLERK 07/03/2025 4:42 AM PARTS CLERK Nuvia Byrd DO LAB BLOOD ORDERABLES Final R esult Performing Organization Address [facility] Co de Phone Number [facility] [address] [place] [address] * POCT glucose (07/02/2025 8:14 PM PARTS CLERK) Glucose, POC 163 70 - 199 mg/dL Comment: For Glucose values <35 mg/dl when Hematocrit is >60 mg/dl,the test may not accurately detect significant hypoglycemia,and testing in the Laboratory should be considered if clinically indicated. Blood 07/02/2025 8:14 PM PARTS CLERK 07/02/2025 8:14 PM PARTS CLERK Jonas Kline MD LAB POCT ORDERABLES - DEVICE Fin al Result Performing Organization Address [facility] Co de Phone Number [facility] [address] [place] [address] * (ABNORMAL) POCT glucose (07/02/2025 4:05 PM PARTS CLERK) Glucose, POC 201(H) 70 - 199 mg/dL Comment: For Glucose values <35 mg/dl when Hematocrit is >60 mg/dl,the test may not accurately detect significant hypoglycemia,and testing in the Laboratory should be considered if clinically indicated. Blood 07/02/2025 4:05 PM PARTS CLERK 07/02/2025 4:05 PM PARTS CLERK Jonas Kline MD LAB POCT ORDERABLES - DEVICE Fin al Result Performing Organization Address [facility] Co de Phone Number [facility] [address] Department of [employer] [place], [place] [id number] * (ABNORMAL) POCT glucose (07/02/2025 11:21 AM PARTS CLERK) Glucose, POC 207(H) 70 - 199 mg/dL Comment: For Glucose values <35 mg/dl when Hematocrit is >60 mg/dl,the test may not accurately detect significant hypoglycemia,and testing in the Laboratory should be considered if clinically indicated. Blood 07/02/2025 11:2 1 AM PARTS CLERK 07/02/2025 11:21 AM PARTS CLERK us Jonas Kline MD LAB POCT ORDERABLES - DEVICE Fin al Result Performing Organization Address [facility] Co de Phone Number [facility] [address] Department of [employer] [place], [place] [id number] * POCT glucose (07/02/2025 8:24 AM PARTS CLERK) Glucose, POC 167 70 - 199 mg/dL Comment: For Glucose values <35 mg/dl when Hematocrit is >60 mg/dl,the test may not accurately detect significant hypoglycemia,and testing in the Laboratory should be considered if clinically indicated. Blood 07/02/2025 8:24 AM PARTS CLERK 07/02/2025 8:24 AM PARTS CLERK us Jonas Kline MD LAB POCT ORDERABLES - DEVICE Fin al Result Performing Organization Address [facility] de Phone Number [facility] [address] [employer] [place], [place] [id number] * eGFR (07/02/2025 5:49 AM PARTS CLERK) eGFR >90 >=60 mL/min/1. 73 m2 Comment: [...] last reviewed 2021. Blood 07/02/2025 5:49 AM PARTS CLERK 07/02/2025 6:01 AM PARTS CLERK us Nuvia Byrd DO LAB BLOOD ORDERABLES Final R esult Performing Organization Address City/[facility]/ZIP Co de Phone Number [facility] [address] Department [place] [address] * (ABNORMAL) CBC without differential (07/02/2025 5:49 AM PARTS CLERK) WBC 10.36(H) 3.80 - 9.90 K/cumm Hgb 9.0(L) 11.9 - 15.5 g/dL [facility] Hct 29.2(L) 35.6 - 45.5 % [facility] Plt 142(L) 150 - 400 K/cumm [facility] MPV 12.5(H) 9.1 - 12.3 fL [facility] RBC 3.17(L) 3.90 - 5.20 M/cumm [facility] MCV 92.1 81.3 - 96.4 fL [facility] MCH 28.4 27.1 - 33.3 pg [facility] MCHC 30.8(L) 32.3 - 35.7 g/dL [facility] RDW CV 18.6(H) 11.1 - 14.9 % [facility] RDW SD 61.5(H) 35.7 - 48.1 fL [facility] NRBC abs 0.00 0.00 - 0.01 K/cumm [facility] Blood 07/02/2025 5:49 AM PARTS CLERK 07/02/2025 6:01 AM PARTS CLERK us Gordo Corrales MD LAB BLOOD ORDERABLES Fi nal Result Performing Organization Address City/[facility]/ZIP Co de Phone Number [facility] [address] Department [place] [address] * (ABNORMAL) Renal function panel (07/02/2025 5:49 AM PARTS CLERK) [facility] Sodium 140 135 - 145 mmol/L Potassium, pl 3.3 3.3 - 4.9 mmol/L [facility] Chloride 98 97 - 110 mmol/L [facility] CO2 33(H) 22 - 32 mmol/L [facility] Anion gap 9 2 - 15 mmol/L [facility] BUN 21 6 - 25 mg/dL [facility] Creatinine 0.51(L) 0.60 - 1.10 mg/dL [facility] Glucose 125 70 - 199 mg/dL [facility] Comment: Interpretive Data Fasting glucose >/= 126 [...] 2022. Calcium 8.4(L) 8.5 - 10.3 mg/dL [facility] Phosphorus, pl 2.1(L) 2.3 - 4.5 mg/dL [facility] Albumin 2.6(L) 3.5 - 5.0 g/dL [facility] Blood 07/02/2025 5:49 AM PARTS CLERK 07/02/2025 6:01 AM PARTS CLERK us Nuvia Byrd DO LAB BLOOD ORDERABLES Final R esult [facility] [address] Department [place] [address] * POCT glucose (07/01/2025 9:11 PM CDT) Glucose, POC 179 70 - 199 mg/dL Comment: For Glucose values <35 mg/dl when Hematocrit is >60 mg/dl,the test may not accurately detect significant hypoglycemia,and testing in the Laboratory should be considered if clinically indicated. Blood 07/01/2025 9:11 PM CDT 07/01/2025 9:11 PM CDT us Jonas Kline MD LAB POCT ORDERABLES - DEVICE Fin al Result Performing Organization Address [facility] de Phone Number [facility] [address] Department [place] [address] * POCT glucose (07/01/2025 4:05 PM CDT) Glucose, POC 194 70 - 199 mg/dL Comment: For Glucose values <35 mg/dl when Hematocrit is >60 mg/dl,the test may not accurately detect significant hypoglycemia,and testing in the Laboratory should be considered if clinically indicated. Blood 07/01/2025 4:05 PM CDT 07/01/2025 4:05 PM CDT Result Donato Kline MD LAB POCT ORDERABLES - DEVICE Fin al Result Performing Organization Address [facility] de Phone Number [facility] [address] Department [place] [address] * POCT glucose (07/01/2025 11:14 AM CDT) [...] DEVICE Fin al Result Performing Organization Address [facility] de Phone Number [facility] [address] Department [place] [address] * POCT glucose (07/01/2025 7:48 AM CDT) Pathologist [facility] Glucose, POC 141 70 - 199 mg/dL Comment: For Glucose values <35 mg/dl when Hematocrit is >60 mg/dl,the test may not accurately detect significant hypoglycemia,and testing in the Laboratory should be considered if clinically indicated. Blood 07/01/2025 7:48 AM CDT 07/01/2025 7:48 AM CDT us Jonas Kline MD LAB POCT ORDERABLES - DEVICE Fin al Result [facility] [address] Department [place] [address] * eGFR (07/01/2025 6:05 AM CDT) [facility] eGFR >90 >=60 mL/min/1. 73 m2 [...] CDT 07/01/2025 6:11 AM CDT us Nuvia Damari Wood DO LAB BLOOD ORDERABLES Final R esult [facility] [address] [place] [address] * (ABNORMAL) CBC without differential (07/01/2025 6:05 AM CDT) WBC 10.39(H) 3.80 - 9.90 K/cumm Hgb 8.7(L) 11.9 - 15.5 g/dL [facility] Hct 29.0(L) 35.6 - 45.5 % [facility] Plt 120(L) 150 - 400 K/cumm [facility] MPV 11.6 9.1 - 12.3 fL [facility] RBC 3.15(L) 3.90 - 5.20 M/cumm [facility] MCV 92.1 81.3 - 96.4 fL [facility] MCH 27.6 27.1 - 33.3 pg [facility] MCHC 30.0(L) 32.3 - 35.7 g/dL [facility] RDW CV 18.6(H) 11.1 - 14.9 % [facility] RDW SD 60.4(H) 35.7 - 48.1 fL [facility] NRBC abs 0.00 0.00 - 0.01 K/cumm [facility] Blood 07/01/2025 6:05 AM CDT 07/01/2025 6:11 AM CDT Gordo Corrales MD LAB BLOOD ORDERABLES Fi nal Result [facility] [address] Department [place] [address] * (ABNORMAL) Renal function panel (07/01/2025 6:05 AM CDT) Sodium 140 135 - 145 mmol/L Potassium, pl 3.2(L) 3.3 - 4.9 mmol/L [facility] Chloride 97 97 - 110 mmol/L [facility] CO2 33(H) 22 - 32 mmol/L [facility] Anion gap 10 2 - 15 mmol/L [facility] BUN 18 6 - 25 mg/dL [facility] Creatinine 0.50(L) 0.60 - 1.10 mg/dL [facility] Glucose 126 70 - 199 mg/dL [facility] Comment: Interpretive Data Fasting glucose >/= 126 [...] 2022. Calcium 8.4(L) 8.5 - 10.3 mg/dL [facility] Phosphorus, pl 2.2(L) 2.3 - 4.5 mg/dL [facility] Albumin 2.7(L) 3.5 - 5.0 g/dL [facility] Blood 07/01/2025 6:05 AM CDT 07/01/2025 6:11 AM CDT us Nuvia Byrd DO LAB BLOOD ORDERABLES Final R esult [facility] [address] Department [place] [address] * (ABNORMAL) POCT glucose (06/30/2025 8:33 PM [...] DEVICE Fin al Result Performing Organization Address [facility] Co de Phone Number [facility] [address] [place] [address] * (ABNORMAL) POCT glucose (06/30/2025 3:55 PM [...] DEVICE Fin al Result Performing Organization Address [facility] Co de Phone Number [facility] [address] Department of [employer] [place], [place] [id number] * eGFR (06/30/2025 1:17 PM CDT) eGFR [...] MD LAB BLOOD ORDERABLES Final R esult [facility] [address] [employer] [place] [address] * (ABNORMAL) Calcium, ionized (06/30/2025 1:17 PM CDT) Calcium, Ionized 4.33(L) 4.50 - 5.10 mg/dL Blood 06/30/2025 1:17 PM CDT 06/30/2025 1:20 PM CDT Shawn Wong MD LAB BLOOD ORDERABLES Final R esult Performing Organization Address [facility] Co de Phone Number [facility] [address] [place] [address] * (ABNORMAL) Basic metabolic panel (06/30/2025 1:17 PM CDT) Pathologist [facility] Sodium 138 135 - 145 mmol/L Potassium, pl 4.2 3.3 - 4.9 mmol/L [facility] Chloride 97 97 - 110 mmol/L [facility] CO2 33(H) 22 - 32 mmol/L [facility] Anion gap 8 2 - 15 mmol/L [facility] BUN 20 6 - 25 mg/dL [facility] Creatinine 0.52(L) 0.60 - 1.10 mg/dL [facility] Glucose 319(H) 70 - 199 mg/dL [facility] Comment: Interpretive Data Fasting glucose >/= 126 [...] 2022. Calcium 8.5 8.5 - 10.3 mg/dL [facility] Blood 06/30/2025 1:17 PM CDT 06/30/2025 1:20 PM CDT Shawn Wong MD LAB BLOOD ORDERABLES Final R esult Performing Organization Address [facility] Co de Phone Number [facility] [address] Department [employer] [place], [place] [id number] * (ABNORMAL) POCT glucose (06/30/2025 11:46 AM CDT) Glucose, POC 273(H) 70 - 199 mg/dL Comment: For Glucose values <35 mg/dl when Hematocrit is >60 mg/dl,the test may not accurately detect significant hypoglycemia,and testing in the Laboratory should be considered if clinically indicated. Blood 06/30/2025 11:4 6 AM CDT 06/30/2025 11:46 AM CDT Shawn Wong MD LAB POCT ORDERABLES - DEVICE Final Result Performing Organization Address [facility] Co de Phone Number [facility] [address] [place] [address] * FL Modified Barium Swallow W Video (06/30/2025 10:54 AM CDT) Anatomical Region Laterality Modality Head and Neck N/A Radio Fluoroscop y 06/30/2025 11:0 1 AM CDT Impressions 06/30/2025 12:57 PM CDT 1. Deep laryngeal penetration to the vocal cords with thin liquids. 2. No evidence transglottic aspiration of examination. This study was performed in collaboration with speech language pathologist Lexi Gaxiola, HEALTH INSURANCE SPECIALIST. Please refer to the Speech Pathology procedure [...] collaboration with speech language pathologist Lexi Gaxiola, HEALTH INSURANCE SPECIALIST. Please refer to the Speech Pathology procedure [...] (ABNORMAL) Calcium, ionized (06/30/2025 8:19 AM CDT) [facility] Calcium, Ionized 4.32(L) 4.50 - 5.10 mg/dL Blood 06/30/2025 8:19 AM CDT 06/30/2025 8:29 AM CDT Foster Stover MD LAB BLOOD ORDERABLES Final Result Performing Organization Address [facility] Co de Phone Number [facility] [address] [employer] [place] [address] * POCT glucose (06/30/2025 7:56 AM CDT) [facility] Glucose, POC 171 70 - 199 mg/dL Comment: For Glucose values <35 mg/dl when Hematocrit is >60 mg/dl,the test may not accurately detect significant hypoglycemia,and testing in the Laboratory should be considered if clinically indicated. Blood 06/30/2025 7:56 AM CDT 06/30/2025 7:56 AM CDT Shawn Wong MD LAB POCT ORDERABLES - DEVICE Final Result Performing Organization Address [facility] Co de Phone Number [facility] [address] [place] [address] * eGFR (06/30/2025 4:13 AM CDT) [facility] eGFR >90 >=60 mL/min/1. 73 m2 [...] AM CDT 06/30/2025 4:26 AM CDT us [facility] BLOOD ORDERABLES Final R esult [facility] [address] [place] [address] * (ABNORMAL) Calcium, ionized (06/30/2025 4:13 AM CDT) Calcium, Ionized 4.33(L) 4.50 - 5.10 mg/dL Blood 06/30/2025 4:13 AM CDT 06/30/2025 4:24 AM CDT Nuvia Wetzel [facility] BLOOD ORDERABLES Final R esult [facility] [address] Department [place] [employer] [place], [place] [phone] * (ABNORMAL) CBC without differential (06/30/2025 4:13 AM CDT) WBC 12.44(H) 3.80 - 9.90 K/cumm Hgb 8.8(L) 11.9 - 15.5 g/dL [facility] Hct 28.1(L) 35.6 - 45.5 % [facility] Plt 135(L) 150 - 400 K/cumm [facility] MPV 11.9 9.1 - 12.3 fL [facility] RBC 3.11(L) 3.90 - 5.20 M/cumm [facility] MCV 90.4 81.3 - 96.4 fL [facility] MCH 28.3 27.1 - 33.3 pg [facility] MCHC 31.3(L) 32.3 - 35.7 g/dL [facility] RDW CV 18.6(H) 11.1 - 14.9 % [facility] RDW SD 59.7(H) 35.7 - 48.1 fL [facility] NRBC abs 0.00 0.00 - 0.01 K/cumm [facility] Blood 06/30/2025 4:13 AM CDT 06/30/2025 4:26 AM CDT us Gordo Corrales MD LAB BLOOD ORDERABLES nal Result [facility] [address] Department [place] [address] * (ABNORMAL) Renal function panel (06/30/2025 4:13 AM CDT) Sodium 141 135 - 145 mmol/L Potassium, pl 3.3 3.3 - 4.9 mmol/L [facility] Chloride 100 97 - 110 mmol/L [facility] CO2 34(H) 22 - 32 mmol/L [facility] Anion gap 7 2 - 15 mmol/L [facility] BUN 20 6 - 25 mg/dL [facility] Creatinine 0.58(L) 0.60 - 1.10 mg/dL [facility] Glucose 177 70 - 199 mg/dL [facility] Comment: Interpretive Data Fasting glucose >/= 126 [...] 2022. Calcium 8.3(L) 8.5 - 10.3 mg/dL [facility] Phosphorus, pl 2.4 2.3 - 4.5 mg/dL [facility] Albumin 2.5(L) 3.5 - 5.0 g/dL [facility] Blood 06/30/2025 4:13 AM CDT 06/30/2025 4:26 AM CDT us Nuvia Byrd DO LAB BLOOD ORDERABLES Final R esult Performing Organization Address City/[facility]/ZIP Co de Phone Number [facility] [address] Department [employer] [place], [place] [id number] * POCT glucose (06/29/2025 11:54 PM CDT) Glucose, POC 176 70 - 199 mg/dL Comment: For Glucose values <35 mg/dl when Hematocrit is >60 mg/dl,the test may not accurately detect significant hypoglycemia,and testing in the Laboratory should be considered if clinically indicated. Blood 06/29/2025 11:5 4 PM CDT 06/29/2025 11:54 PM CDT us Shawn Wong MD LAB POCT ORDERABLES - DEVICE Final Result Performing Organization Address City/[facility]/ZIP Co de Phone Number [facility] [address] [place] [address] * (ABNORMAL) POCT glucose (06/29/2025 8:48 PM [...] - DEVICE Final Result Performing Organization Address [facility] de Phone Number [facility] [address] Department of [employer] [place], [place] [id number] * (ABNORMAL) POCT glucose (06/29/2025 4:16 PM CDT) [facility] Signature Glucose, POC 237(H) 70 - 199 mg/dL Comment: For Glucose values <35 mg/dl when Hematocrit is >60 mg/dl,the test may not accurately detect significant hypoglycemia,and testing in the Laboratory should be considered if clinically indicated. Blood 06/29/2025 4:16 PM CDT 06/29/2025 4:16 PM CDT Shawn Wong MD LAB POCT ORDERABLES - DEVICE Final Result Performing Organization Address [facility] de Phone Number [facility] [address] [place] [address] * XR Chest 1 View (06/29/2025 3:03 PM CDT) Anatomical Region Laterality Modality Body, Chest N/A Computed Radiogr aphy 06/29/2025 3:46 PM CDT Impressions 06/29/2025 3:46 PM CDT Reverse right total shoulder arthroplasty. No ankle fusion instrumentation. Median sternotomy wires with unchanged discontinuity of the cranial and 3rd cranial-most wires. Interval removal of endotracheal and nasogastric tubes. A nasoenteric tube courses beyond the [id number]. Median sternotomy wires. Mitral valve repair. Left [...] tubes. A nasoenteric tube courses beyond the [id number]. Median sternotomy wires. Mitral valve repair. Left upper extremity PICC with tip at the superior cavoatrial junction. Trace right pleural effusion with associated atelectasis. Interstitial opacification with subtle nodularity in the upper lungs, better appreciated on prior CT. No focal consolidation. Normal heart size. Electronically signed by: Racheal Wilkins MD, MPHS us Gordo Corrales MD IMG XR PROCEDURES Final Result * Phosphorus (06/29/2025 12:58 PM CDT) Phosphorus, pl 3.7 2.3 - 4.5 mg/dL Blood 06/29/2025 12:5 8 PM CDT 06/29/2025 1:10 PM CDT Narrative [facility] - 06/29/2025 2:03 PM CDT Draw 1 hour after supplemental sodium phosphate infusion completed us Shawn Wong MD LAB BLOOD ORDERABLES Final R esult [facility] [address] [place] [address] * (ABNORMAL) POCT glucose (06/29/2025 12:04 PM CDT) Glucose, POC 206(H) 70 - 199 mg/dL Comment: For Glucose values <35 mg/dl when Hematocrit is >60 mg/dl,the test may not accurately detect significant hypoglycemia,and testing in the Laboratory should be considered if clinically indicated. Blood 06/29/2025 12:0 4 PM CDT 06/29/2025 12:04 PM CDT Shawn Wong MD LAB POCT ORDERABLES - DEVICE Final Result Performing Organization Address [facility] Co de Phone Number [facility] [address] [place] [address] * ECG 12 lead (06/29/2025 8:49 AM CDT) 06/29/2025 8:49 AM CDT Narrative [facility] - 06/29/2025 7:46 PM CDT Vent Rate: 104 bpm RR Interval: 576 msec NM Interval: 0 msec QRS Duration: 112 msec QT Interval: 368 msec QTC Interval: 428 msec P-R-T [place]: 0 - -34 - 248 degrees IMPRESSION: ATRIAL FIBRILLATION WITH RAPID VENTRICULAR RESPONSE LEFT AXIS DEVIATION INCOMPLETE RIGHT BUNDLE BRANCH BLOCK ST DEVIATION AND MODERATE T-WAVE ABNORMALITY, CONSIDER ISCHEMIA ABNORMAL ECG Electronically Signed By: Willis Ramirez MD [facility] [employer] [address] [employer] ECG ORDERABLES Tawnya l Result Performing Organization Address [facility]/ZIP Co de Phone Number [facility] [employer] [facility] * POCT glucose (06/29/2025 7:51 AM CDT) Glucose, POC 181 70 - 199 mg/dL Comment: For Glucose values <35 mg/dl when Hematocrit is >60 mg/dl,the test may not accurately detect significant hypoglycemia,and testing in the Laboratory should be considered if clinically indicated. Blood 06/29/2025 7:51 AM CDT 06/29/2025 7:51 AM CDT us Shawn Wong MD LAB POCT ORDERABLES - DEVICE Final Result Performing Organization Address City/[facility]/ZIP Co de Phone Number [facility] [address] [facility] [place] [address] * (ABNORMAL) Calcium, ionized (06/29/2025 6:36 AM CDT) Calcium, Ionized 4.41(L) 4.50 - 5.10 mg/dL Blood 06/29/2025 6:36 AM CDT 06/29/2025 6:43 AM CDT us Chris Johnston MD LAB BLOOD ORDERABLES Final R esult Performing Organization Address [facility] Co de Phone Number [facility] [address] [facility] [place] [address] * eGFR (06/29/2025 4:07 AM CDT) eGFR >90 >=60 mL/min/1. 73 [...] 4:07 AM CDT 06/29/2025 4:21 AM [address] Nuvia Wet[address] [facility] LAB BLOOD ORDERABLES Final R esult Performing Organization Address [facility] Co de Phone Number [facility] [address] Department [employer] [place], [place] [phone] * (ABNORMAL) Calcium, ionized (06/29/2025 4:07 AM CDT) Calcium, Ionized 4.08(L) 4.50 - 5.10 mg/dL Blood 06/29/2025 4:07 AM CDT 06/29/2025 4:18 AM CDT Nuvia Wetzel [facility] BLOOD ORDERABLES Final R esult Performing Organization Address [facility] de Phone Number [facility] [address] Department [employer] [place], [place] [id number] * POCT glucose (06/29/2025 4:07 AM CDT) [...] - DEVICE Final Result Performing Organization Address [facility] Co de Phone Number [facility] [address] Department [employer] [place], [place] [id number] * (ABNORMAL) CBC without differential (06/29/2025 4:07 AM CDT) WBC 14.79(H) 3.80 - 9.90 K/cumm Hgb 9.1(L) 11.9 - 15.5 g/dL [facility] Hct 28.6(L) 35.6 - 45.5 % [facility] Plt 142(L) 150 - 400 K/cumm [facility] MPV 12.4(H) 9.1 - 12.3 fL [facility] RBC 3.25(L) 3.90 - 5.20 M/cumm [facility] MCV 88.0 81.3 - 96.4 fL [facility] MCH 28.0 27.1 - 33.3 pg [facility] MCHC 31.8(L) 32.3 - 35.7 g/dL [facility] RDW CV 18.4(H) 11.1 - 14.9 % [facility] RDW SD 57.5(H) 35.7 - 48.1 fL [facility] NRBC abs 0.00 0.00 - 0.01 K/cumm [facility] Blood 06/29/2025 4:07 AM CDT 06/29/2025 4:22 AM CDT Gordo Corrales MD LAB BLOOD ORDERABLES nal Result [facility] [address] Department of Laboratories [place], [place] [id number] * (ABNORMAL) Renal function panel (06/29/2025 4:07 AM CDT) Sodium 139 135 - 145 mmol/L Potassium, pl 3.9 3.3 - 4.9 mmol/L [facility] Chloride 99 97 - 110 mmol/L [facility] CO2 34(H) 22 - 32 mmol/L [facility] Anion gap 6 2 - 15 mmol/L [facility] BUN 16 6 - 25 mg/dL [facility] Creatinine 0.68 0.60 - 1.10 mg/dL [facility] Glucose 183 70 - 199 mg/dL [facility] Comment: Interpretive Data Fasting glucose >/= 126 [...] 2022. Calcium 8.3(L) 8.5 - 10.3 mg/dL [facility] Phosphorus, pl 1.8(L) 2.3 - 4.5 mg/dL [facility] Albumin 2.3(L) 3.5 - 5.0 g/dL [facility] Blood 06/29/2025 4:07 AM CDT 06/29/2025 4:21 AM CDT Nuvia Byrd DO LAB BLOOD ORDERABLES Final R esult Performing Organization Address [facility] Co de Phone Number [facility] [address] Department of [employer] [place], [place] [id number] * Potassium (06/28/2025 11:39 PM CDT) Potassium, pl 3.4 3.3 - 4.9 mmol/L Blood 06/28/2025 11:3 9 PM CDT 06/28/2025 11:48 PM CDT Chris Johnston MD LAB BLOOD ORDERABLES Final R esult Performing Organization Address [facility] Co de Phone Number [facility] [address] [place] [address] * (ABNORMAL) Potassium (06/28/2025 8:33 PM CDT) Potassium, pl 3.1(L) 3.3 - 4.9 mmol/L Blood 06/28/2025 8:33 PM CDT 06/28/2025 8:36 PM CDT Chris Johnston MD LAB BLOOD ORDERABLES Final R esult Performing Organization Address [facility] Co de Phone Number [facility] [address] [facility] [place] [address] * (ABNORMAL) POCT glucose (06/28/2025 8:32 PM [...] - DEVICE Final Result Performing Organization Address [facility] Co de Phone Number [facility] [address] [place] [address] * (ABNORMAL) POCT glucose (06/28/2025 4:05 PM [...] - DEVICE Final Result Performing Organization Address [facility] Co de Phone Number [facility] [address] [place] [address] * (ABNORMAL) Potassium (06/28/2025 4:04 PM CDT) Potassium, pl 3.1(L) 3.3 - 4.9 mmol/L Blood 06/28/2025 4:04 PM CDT 06/28/2025 4:46 PM CDT Chris Johnston MD LAB BLOOD ORDERABLES Final R esult Performing Organization Address City/[facility]/ZIP Co de Phone Number [facility] [address] [facility] [employer] [place], [place] [phone] * (ABNORMAL) Potassium (06/28/2025 11:53 AM CDT) Potassium, pl 2.9(L) 3.3 - 4.9 mmol/L Blood 06/28/2025 11:5 3 AM CDT 06/28/2025 12:02 PM CDT Chris Johnston MD LAB BLOOD ORDERABLES Final R esult Performing Organization Address [facility] Co de Phone Number [facility] [address] Department [employer] [place], [place] [phone] * Phosphorus (06/28/2025 11:53 AM CDT) Phosphorus, pl 3.8 2.3 - 4.5 mg/dL Blood 06/28/2025 11:5 3 AM CDT 06/28/2025 12:02 PM CDT Shawn Wong MD LAB BLOOD ORDERABLES Final R esult Performing Organization Address [facility] Co de Phone Number [facility] [address] Department [employer] [place], [place] [phone] * (ABNORMAL) POCT glucose (06/28/2025 11:49 AM [...] POCT ORDERABLES - DEVICE Final Result [facility] [address] Department [place] [address] * XR Chest 1 View (06/28/2025 10:49 [...] CDT 06/28/2025 10:20 AM CDT Narrative [facility] - 06/28/2025 10:22 AM CDT Obtain 1 hour after calcium gluconate infusion completed. Shawn Wong MD LAB BLOOD ORDERABLES Final R esult Performing Organization Address [facility] Co de Phone Number [facility] [address] [place] [address] * (ABNORMAL) POCT glucose (06/28/2025 9:15 AM CDT) Glucose, POC 335(H) 70 - 199 mg/dL Comment: For Glucose values <35 mg/dl when Hematocrit is >60 mg/dl,the test may not accurately detect significant hypoglycemia,and testing in the Laboratory should be considered if clinically indicated. Blood 06/28/2025 9:15 AM CDT 06/28/2025 9:15 AM CDT Shawn Wong MD LAB POCT ORDERABLES - DEVICE Final Result Performing Organization Address [facility]/ZIP Co de Phone Number [facility] [address] [place] [address] * (ABNORMAL) Potassium (06/28/2025 8:44 AM CDT) Potassium, pl 2.8(L) 3.3 - 4.9 mmol/L Blood 06/28/2025 8:44 AM CDT 06/28/2025 9:52 AM CDT us Chris Johnston MD LAB BLOOD ORDERABLES Final R esult Performing Organization Address [facility] Co de Phone Number [facility] [address] [facility] [place] [address] * (ABNORMAL) POCT glucose (06/28/2025 8:30 AM [...] - DEVICE Final Result Performing Organization Address [facility] Co de Phone Number [facility] [address] [facility] [place] [address] * (ABNORMAL) POCT glucose (06/28/2025 7:34 AM [...] - DEVICE Final Result Performing Organization Address [facility] Co de Phone Number [facility] [address] [facility] [place] [address] * POCT glucose (06/28/2025 6:10 AM CDT) Glucose, POC 192 70 - 199 mg/dL Comment: For Glucose values <35 mg/dl when Hematocrit is >60 mg/dl,the test may not accurately detect significant hypoglycemia,and testing in the Laboratory should be considered if clinically indicated. Blood 06/28/2025 6:10 AM CDT 06/28/2025 6:10 AM CDT us Shawn Wong MD LAB POCT ORDERABLES - DEVICE Final Result Performing Organization Address [facility]/ZIP Co de Phone Number [facility] [address] [employer] [place] [address] * eGFR (06/28/2025 3:23 AM CDT) eGFR >90 >=60 mL/min/1. 73 [...] AM CDT 06/28/2025 3:35 AM CDT us Nuvia Byrd DO LAB BLOOD ORDERABLES Final R esult Performing Organization Address City/[facility]/ZIP Co de Phone Number [facility] [address] Department [employer] [place], [place] [id number] * (ABNORMAL) Calcium, ionized (06/28/2025 3:23 AM CDT) Calcium, Ionized 4.19(L) 4.50 - 5.10 mg/dL Blood 06/28/2025 3:23 AM CDT 06/28/2025 3:29 AM CDT Nuvia Byrd DO LAB BLOOD ORDERABLES Final R esult Performing Organization Address City/[facility]/ZIP Co de Phone Number [facility] [address] [employer] [place], [place] [phone] * (ABNORMAL) CBC without differential (06/28/2025 3:23 AM CDT) [facility] WBC 17.41(H) 3.80 - 9.90 K/cumm Hgb 8.6(L) 11.9 - 15.5 g/dL [facility] Hct 27.2(L) 35.6 - 45.5 % [facility] Plt 181 150 - 400 K/cumm [facility] MPV 12.1 9.1 - 12.3 fL [facility] RBC 3.07(L) 3.90 - 5.20 M/cumm [facility] MCV 88.6 81.3 - 96.4 fL [facility] MCH 28.0 27.1 - 33.3 pg [facility] MCHC 31.6(L) 32.3 - 35.7 g/dL [facility] RDW CV 18.2(H) 11.1 - 14.9 % [facility] RDW SD 55.8(H) 35.7 - 48.1 fL [facility] NRBC abs 0.00 0.00 - 0.01 K/cumm [facility] Blood 06/28/2025 3:23 AM CDT 06/28/2025 3:35 AM CDT Gordo Corrales MD LAB BLOOD ORDERABLES Fi nal Result [facility] [address] [employer] [place], [place] [id number] * (ABNORMAL) Renal function panel (06/28/2025 3:23 AM CDT) Sodium 139 135 - 145 mmol/L Potassium, pl 6.6(C) 3.3 - 4.9 mmol/L [facility] Comment:Critical result call ed to and read back by Bettina Aguilar RN on 06/28/25 0425 to [id number] Chloride 110 97 - 110 mmol/L [facility] CO2 23 22 - 32 mmol/L [facility] Anion gap 6 2 - 15 mmol/L [facility] BUN 16 6 - 25 mg/dL [facility] Creatinine 0.66 0.60 - 1.10 mg/dL [facility] Glucose 192 70 - 199 mg/dL [facility] Comment: Interpretive Data Fasting glucose >/= 126 [...] 2022. Calcium 6.7(L) 8.5 - 10.3 mg/dL [facility] Phosphorus, pl 1.8(L) 2.3 - 4.5 mg/dL [facility] Albumin 2.1(L) 3.5 - 5.0 g/dL [facility] Blood 06/28/2025 3:23 AM CDT 06/28/2025 3:35 AM CDT us Nuvia Byrd DO LAB BLOOD ORDERABLES Final R esult [facility] [address] [place] [address] * (ABNORMAL) Calcium, ionized (06/27/2025 8:40 PM CDT) Calcium, Ionized 5.12(H) 4.50 - 5.10 mg/dL Blood 06/27/2025 8:40 PM CDT 06/27/2025 8:42 PM CDT us Shawn Wong MD LAB BLOOD ORDERABLES Final R esult Performing Organization Address City/[facility] Co de Phone Number [facility] [address] [place] [address] * POCT glucose (06/27/2025 7:22 PM CDT) Glucose, POC 192 70 - 199 mg/dL Comment: For Glucose values <35 mg/dl when Hematocrit is >60 mg/dl,the test may not accurately detect significant hypoglycemia,and testing in the Laboratory should be considered if clinically indicated. Blood 06/27/2025 7:22 PM CDT 06/27/2025 7:22 PM CDT us Shawn Wong MD LAB POCT ORDERABLES - DEVICE Final Result Performing Organization Address [facility] Co de Phone Number [facility] [address] [facility] [employer] [place], [place] [phone] * (ABNORMAL) Calcium, ionized (06/27/2025 5:46 PM CDT) Calcium, Ionized 4.27(L) 4.50 - 5.10 mg/dL Blood 06/27/2025 5:46 PM CDT 06/27/2025 5:48 PM CDT Shawn Wong MD LAB BLOOD ORDERABLES Final R esult Performing Organization Address City/[facility] Co de Phone Number [facility] [address] [facility] [place] [address] * POCT glucose (06/27/2025 5:27 PM CDT) Pathologist [facility] Glucose, POC 192 70 - 199 mg/dL Comment: For Glucose values <35 mg/dl when Hematocrit is >60 mg/dl,the test may not accurately detect significant hypoglycemia,and testing in the Laboratory should be considered if clinically indicated. Blood 06/27/2025 5:27 PM CDT 06/27/2025 5:27 PM CDT Shawn Wong MD LAB POCT ORDERABLES - DEVICE Final Result [facility] [address] [place] [address] * XR Kub (06/27/2025 4:25 PM CDT) [...] material. Electronically signed by: Kendrick Jenkins M.D. Shawn Wong MD IMG XR PROCEDURES Final Resu lt * (ABNORMAL) Calcium, ionized (06/27/2025 3:06 PM CDT) Calcium, Ionized 4.32(L) 4.50 - 5.10 mg/dL Blood 06/27/2025 3:06 PM CDT 06/27/2025 3:08 PM CDT Shawn Wong MD LAB BLOOD ORDERABLES Final R esult Performing Organization Address [facility]/ZIP Co de Phone Number [facility] [address] Department [employer] [place], [place] [phone] * (ABNORMAL) Hemoglobin and hematocrit (06/27/2025 3:06 PM CDT) Hgb 10.7(L) 11.9 - 15.5 g/dL Hct 33.3(L) 35.6 - 45.5 % [facility] Blood 06/27/2025 3:06 PM CDT 06/27/2025 3:12 PM CDT Shawn Wong MD LAB BLOOD ORDERABLES Final R esult Performing Organization Address [facility]/ZIP Co de Phone Number [facility] [address] Department of [employer] [place], [place] [phone] * XR Chest 1 Vw (06/27/2025 2:23 [...] Roque PA Authorized by: Bobo Roque PA [place] Protocol: RN Notified of Procedure: yes Informed consent: Risks, benefits, alternatives discussed, 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 and unable to [...] MD LAB BLOOD ORDERABLES Final R esult [facility] [address] [place] [address] * POCT glucose (06/27/2025 11:26 AM CDT) [...] POCT ORDERABLES - DEVICE Final Result [facility] [address] [place] [address] * XR Kub (06/27/2025 11:21 AM CDT) [...] XR KUB HISTORY: Tube placement Procedure Note Chris Villeda MD - 06/27/2025 EXAMINATION: XR KUB [...] (ABNORMAL) Calcium, ionized (06/27/2025 9:28 AM CDT) [facility] Calcium, Ionized 3.53(L) 4.50 - 5.10 mg/dL Blood 06/27/2025 9:28 AM CDT 06/27/2025 9:33 AM CDT Shawn Wong MD LAB BLOOD ORDERABLES Final R esult Performing Organization Address City/[facility]/ZIP Co de Phone Number [facility] [address] [place] [address] * POCT glucose (06/27/2025 7:10 AM CDT) [facility] Glucose, POC 174 70 - 199 mg/dL Comment: For Glucose values <35 mg/dl when Hematocrit is >60 mg/dl,the test may not accurately detect significant hypoglycemia,and testing in the Laboratory should be considered if clinically indicated. Blood 06/27/2025 7:10 AM CDT 06/27/2025 7:10 AM CDT Shawn Wong MD LAB POCT ORDERABLES - DEVICE Final Result Performing Organization Address City/[facility]/ZIP Co de Phone Number [facility] [address] [place] [address] * eGFR (06/27/2025 5:33 AM CDT) [facility] eGFR 68 >=60 mL/min/1. 73 m2 [...] DO LAB BLOOD ORDERABLES Final R esult [facility] [address] Department of Laboratories [place], [place] [id number] * (ABNORMAL) CBC without differential (06/27/2025 5:33 AM CDT) WBC 20.77(H) 3.80 - 9.90 K/cumm Hgb 11.3(L) 11.9 - 15.5 g/dL [facility] Hct 35.2(L) 35.6 - 45.5 % [facility] Plt 328 150 - 400 K/cumm [facility] MPV 12.0 9.1 - 12.3 fL [facility] RBC 4.06 3.90 - 5.20 M/cumm [facility] MCV 86.7 81.3 - 96.4 fL [facility] MCH 27.8 27.1 - 33.3 pg [facility] MCHC 32.1(L) 32.3 - 35.7 g/dL [facility] RDW CV 18.0(H) 11.1 - 14.9 % [facility] RDW SD 55.5(H) 35.7 - 48.1 fL [facility] NRBC abs 0.00 0.00 - 0.01 K/cumm [facility] Blood 06/27/2025 5:33 AM CDT 06/27/2025 5:38 AM CDT Gordo Corrales MD LAB BLOOD ORDERABLES Fi nal Result Performing Organization Address City/[facility]/ZIP Co de Phone Number [facility] [address] [place] [address] * (ABNORMAL) Renal function panel (06/27/2025 5:33 AM CDT) Sodium 138 135 - 145 mmol/L Potassium, pl 4.6 3.3 - 4.9 mmol/L [facility] Chloride 93(L) 97 - 110 mmol/L [facility] CO2 30 22 - 32 mmol/L [facility] Anion gap 15 2 - 15 mmol/L [facility] BUN 22 6 - 25 mg/dL [facility] Creatinine 0.90 0.60 - 1.10 mg/dL [facility] Glucose 197 70 - 199 mg/dL [facility] Comment: Interpretive Data Fasting glucose >/= 126 [...] 2022. Calcium 8.1(L) 8.5 - 10.3 mg/dL [facility] Phosphorus, pl 3.8 2.3 - 4.5 mg/dL [facility] Albumin 3.2(L) 3.5 - 5.0 g/dL [facility] Blood 06/27/2025 5:33 AM CDT 06/27/2025 5:38 AM CDT us Nuvia Byrd DO LAB BLOOD ORDERABLES Final R esult [facility] [address] [place] [address] * (ABNORMAL) Calcium, ionized (06/27/2025 5:16 AM CDT) Calcium, Ionized 3.96(L) 4.50 - 5.10 mg/dL Blood 06/27/2025 5:16 AM CDT 06/27/2025 5:32 AM CDT Nuvia Byrd DO LAB BLOOD ORDERABLES Final R esult [facility] [address] [facility] [place] [address] * (ABNORMAL) Blood gas, arterial (06/26/2025 8:46 PM CDT) pH, Art 7.51(H) 7.35 - 7.45 PCO2, Arterial 44 35 - 45 mmHg [facility] PO2, Arterial 286(H) 83 - 108 mmHg [facility] HCO3 Art (Calculated) 35(H) 20 - 30 mmol/L [facility] BE, art 11 mmol/L [facility] Comment: Interpretive Data No Reference Range Established Current Interpretive Data was last revised on 2017 O2 Sat Art (Calculated) 100(H) 94 - 98 % [facility] Blood 06/26/2025 8:46 PM CDT 06/26/2025 8:50 PM CDT us Chris Johnston MD LAB BLOOD ORDERABLES Final R esult [facility] [address] [place] [address] * (ABNORMAL) Triglycerides (06/26/2025 8:37 PM CDT) [...] PM CDT 06/26/2025 8:53 PM CDT Narrative [facility] - 06/26/2025 9:18 PM CDT While on propofol infusion. us Chris Johnston MD LAB BLOOD ORDERABLES Final R esult [facility] [address] [place] [address] * XR Chest 1 Vw (06/26/2025 8:30 [...] note lung apices are excluded from the [id number]. Electronically signed by: Kendrick Jenkins M.D. Narrative [...] note lung apices are excluded from the [id number]. Electronically signed by: Kendrick Jenkins M.D. Chris [...] note lung apices are excluded from the [id number]. Electronically signed by: Kendrick Jenkins M.D. Narrative [...] note lung apices are excluded from the [id number]. Electronically signed by: Kendrick Jenkins M.D. Chris Johnston MD IMG XR PROCEDURES Final Resu lt * POCT glucose (06/26/2025 8:26 PM CDT) Glucose, POC 198 70 - 199 mg/dL Comment: For Glucose values <35 mg/dl when Hematocrit is >60 mg/dl,the test may not accurately detect significant hypoglycemia,and testing in the Laboratory should be considered if clinically indicated. Blood 06/26/2025 8:26 PM CDT 06/26/2025 8:26 PM CDT Shawn Wong MD LAB POCT ORDERABLES - DEVICE Final Result Performing Organization Address [facility]/ZIP Co de Phone Number [facility] [address] [place] [address] * [place] Fluoroscopy < 1 Hour (06/26/2025 7:27 PM CDT) Narrative [facility] - 06/26/2025 7:29 PM CDT The images from this study are not interpreted by Radiology. Please refer to the physician's procedure / OR operative note. Sadia Renae MD IMG FLUOROSCOPY PROCEDURE S Final Result Performing Organization Address [facility] de Phone Number [facility] * XR Spine Cervical 2 or 3 [...] IMG XR PROCEDURES Final R esult * NM AN ELECTIVE ENDOTRACHEAL AIRWAY, NM AN PROCEDURE PLACEHOLDER (06/26/2025 4:27 PM CDT) Narrative Jessie Landry CRNA - 06/26/2025 4:27 PM CDT Jessie Landry CRNA 06/26/2025 4:28 PM Airway Patient location: OR Urgency: elective Date/time: 06/26/2025 2:20 PM Indications for airway management: anesthesia Difficult airway: no Staff: Supervising provider: Jhonathan Gaytan MD Placed by: JET DYEING MACHINE OPERATOR: Jessie Landry CRNA Emergent airway documentation: Risks [...] with: silk tape Number of attempts: 1 Jhonathan Gaytan MD ANESTHESIA ORDERABLES Final Res [...] - DEVICE Final Result Performing Organization Address [facility] Co de Phone Number [facility] [address] [facility] [place] [address] * (ABNORMAL) Phosphorus (06/26/2025 11:10 AM CDT) Phosphorus, pl 4.8(H) 2.3 - 4.5 mg/dL Comment:Reviewed- delta due to patient receiving phosphorus Blood 06/26/2025 11:1 0 AM CDT 06/26/2025 11:23 AM CDT Narrative [facility] - 06/26/2025 12:37 PM CDT Draw 1 hour after supplemental potassium phosphate infusion completed Chris Johnston MD LAB BLOOD ORDERABLES Final R esult Performing Organization Address [facility] Co de Phone Number [facility] [address] [employer] [place], [place] [id number] * POCT glucose (06/26/2025 7:31 AM CDT) Glucose, POC 122 70 - 199 mg/dL Comment: For Glucose values <35 mg/dl when Hematocrit is >60 mg/dl,the test may not accurately detect significant hypoglycemia,and testing in the Laboratory should be considered if clinically indicated. Blood 06/26/2025 7:31 AM CDT 06/26/2025 7:31 AM CDT Shawn Wong MD LAB POCT ORDERABLES - DEVICE Final Result Performing Organization Address [facility] Co de Phone Number [facility] [address] Department [employer] [place], [place] [id number] * eGFR (06/26/2025 1:01 AM CDT) eGFR [...] AM CDT 06/26/2025 1:12 AM CDT Nuvia [address] [facility] LAB BLOOD ORDERABLES Final R esult Performing Organization Address City/[facility]/ZIP Co de Phone Number [facility] [address] [employer] [place], [place] [id number] * (ABNORMAL) Calcium, ionized (06/26/2025 1:01 AM CDT) Pathologist [facility] Calcium, Ionized 4.45(L) 4.50 - 5.10 mg/dL Blood 06/26/2025 1:01 AM CDT 06/26/2025 1:08 AM CDT Nuvia [address] [facility] LAB BLOOD ORDERABLES Final R esult Performing Organization Address City/[facility] Co de Phone Number [facility] [address] [place] [address] * (ABNORMAL) CBC without differential (06/26/2025 1:01 AM CDT) WBC 11.31(H) 3.80 - 9.90 K/cumm Hgb 9.2(L) 11.9 - 15.5 g/dL [facility] Hct 30.1(L) 35.6 - 45.5 % [facility] Plt 207 150 - 400 K/cumm [facility] MPV 12.4(H) 9.1 - 12.3 fL [facility] RBC 3.32(L) 3.90 - 5.20 M/cumm [facility] MCV 90.7 81.3 - 96.4 fL [facility] MCH 27.7 27.1 - 33.3 pg [facility] MCHC 30.6(L) 32.3 - 35.7 g/dL [facility] RDW CV 17.5(H) 11.1 - 14.9 % [facility] RDW SD 56.6(H) 35.7 - 48.1 fL [facility] NRBC abs 0.00 0.00 - 0.01 K/cumm [facility] Blood 06/26/2025 1:01 AM CDT 06/26/2025 1:12 AM CDT Chris Johnston MD LAB BLOOD ORDERABLES Final R esult Performing Organization Address [facility] Co de Phone Number [facility] [facility] [address] [employer] [place], [place] [id number] * Magnesium (06/26/2025 1:01 AM CDT) Pathologist [facility] Magnesium 2.2 1.4 - 2.5 mg/dL Blood 06/26/2025 1:01 AM CDT 06/26/2025 1:12 AM CDT Chris Johnston MD LAB BLOOD ORDERABLES Final R esult Performing Organization Address City/[facility]/ZIP Co de Phone Number [facility] [address] [place] [address] * (ABNORMAL) Renal function panel (06/26/2025 1:01 AM CDT) Sodium 141 135 - 145 mmol/L Potassium, pl 3.4 3.3 - 4.9 mmol/L [facility] Chloride 98 97 - 110 mmol/L [facility] CO2 34(H) 22 - 32 mmol/L [facility] Anion gap 9 2 - 15 mmol/L [facility] BUN 22 6 - 25 mg/dL [facility] Creatinine 0.79 0.60 - 1.10 mg/dL [facility] Glucose 129 70 - 199 mg/dL [facility] Comment: Interpretive Data Fasting glucose >/= 126 [...] 2022. Calcium 8.4(L) 8.5 - 10.3 mg/dL [facility] Phosphorus, pl 2.4 2.3 - 4.5 mg/dL [facility] Albumin 2.7(L) 3.5 - 5.0 g/dL [facility] Blood 06/26/2025 1:01 AM CDT 06/26/2025 1:12 AM CDT Nuvia Byrd DO LAB BLOOD ORDERABLES Final R esult [facility] [address] [place] [address] * Type and screen (06/26/2025 12:54 AM CDT) ABO Rh A Negative Carlos, indirect Negative [facility] Blood 06/26/2025 12:5 4 AM CDT 06/26/2025 1:09 AM CDT Narrative [facility] - 06/26/2025 1:49 AM CDT Has the patient had Daratumumab or Isatuximab in the past 6 months?->Unknown Acosta Bianchi MD LAB BLOOD BANK TEST ORD ERABLES Final Result Performing Organization Address [facility] Co de Phone Number [facility] [address] Department of [employer] [place], [place] [id number] * POCT glucose (06/25/2025 9:21 PM CDT) Glucose, POC 159 70 - 199 mg/dL Comment: For Glucose values <35 mg/dl when Hematocrit is >60 mg/dl,the test may not accurately detect significant hypoglycemia,and testing in the Laboratory should be considered if clinically indicated. Blood 06/25/2025 9:21 PM CDT 06/25/2025 9:21 PM CDT Chris Johnston MD LAB POCT ORDERABLES - DEVICE Final Result Performing Organization Address [facility] de Phone Number [facility] [address] Department of [employer] [place], [place] [id number] * (ABNORMAL) Calcium, ionized (06/25/2025 5:43 PM CDT) [facility] Calcium, Ionized 4.37(L) 4.50 - 5.10 mg/dL Blood 06/25/2025 5:43 PM CDT 06/25/2025 5:50 PM CDT Chris Johnston MD LAB BLOOD ORDERABLES Final R esult Performing Organization Address [facility] Co de Phone Number [facility] [address] Department of [employer] [place], [place] [id number] * Potassium (06/25/2025 5:43 PM CDT) Pathologist [facility] Potassium, pl 4.1 3.3 - 4.9 mmol/L Blood 06/25/2025 5:43 PM CDT 06/25/2025 5:53 PM CDT Narrative [facility] - 06/25/2025 6:12 PM CDT Draw 1 hour after all infusions of supplemental potassium chloride completed Marita Ray MD LAB BLOOD ORDERABLES Fin al Result Performing Organization Address [facility] de Phone Number [facility] [address] [place] [address] * POCT glucose (06/25/2025 4:58 PM CDT) [facility] Glucose, POC 178 70 - 199 mg/dL Comment: For Glucose values <35 mg/dl when Hematocrit is >60 mg/dl,the test may not accurately detect significant hypoglycemia,and testing in the Laboratory should be considered if clinically indicated. Blood 06/25/2025 4:58 PM CDT 06/25/2025 4:58 PM CDT Chris Johnston MD LAB POCT ORDERABLES - DEVICE Final Result Performing Organization Address [facility] de Phone Number [facility] [address] [place] [address] * (ABNORMAL) POCT glucose (06/25/2025 12:19 PM CDT) [facility] Glucose, POC 234(H) 70 - 199 mg/dL Comment: For Glucose values <35 mg/dl when Hematocrit is >60 mg/dl,the test may not accurately detect significant hypoglycemia,and testing in the Laboratory should be considered if clinically indicated. Blood 06/25/2025 12:1 9 PM CDT 06/25/2025 12:19 PM CDT Chris Johnston MD LAB POCT ORDERABLES - DEVICE Final Result Performing Organization Address [facility]/ZIP Co de Phone Number [facility] [address] [place] [address] * (ABNORMAL) Calcium, ionized (06/25/2025 9:22 AM CDT) [facility] Calcium, Ionized 4.36(L) 4.50 - 5.10 mg/dL Blood 06/25/2025 9:22 AM CDT 06/25/2025 9:33 AM CDT Narrative [facility] - 06/25/2025 9:36 AM CDT Obtain 1 hour after calcium gluconate infusion completed. Marita Ray MD LAB BLOOD ORDERABLES Fin al Result Performing Organization Address [facility] Co de Phone Number [facility] [address] Department [place] [address] * Magnesium (06/25/2025 9:22 AM CDT) [facility] Magnesium 1.8 1.4 - 2.5 mg/dL Blood 06/25/2025 9:22 AM CDT 06/25/2025 9:43 AM CDT Chris Johnston MD LAB BLOOD ORDERABLES Final R esult Performing Organization Address [facility] Co de Phone Number [facility] [address] [place] [address] * POCT glucose (06/25/2025 8:22 AM CDT) [facility] Glucose, POC 139 70 - 199 mg/dL Comment: For Glucose values <35 mg/dl when Hematocrit is >60 mg/dl,the test may not accurately detect significant hypoglycemia,and testing in the Laboratory should be considered if clinically indicated. Blood 06/25/2025 8:22 AM CDT 06/25/2025 8:22 AM CDT Chris Johnston MD LAB POCT ORDERABLES - DEVICE Final Result Performing Organization Address [facility] Co de Phone Number [facility] [address] [place] [address] * eGFR (06/25/2025 3:38 AM CDT) eGFR 77 >=60 mL/min/1. 73 m2 Comment: [...] ORDERABLES Final R esult Performing Organization Address [facility] Co de Phone Number [facility] [address] Department [employer] [place], [place] [phone] * (ABNORMAL) Calcium, ionized (06/25/2025 3:38 AM CDT) Calcium, Ionized 4.11(L) 4.50 - 5.10 mg/dL Blood 06/25/2025 3:38 AM CDT 06/25/2025 3:53 AM CDT Nuvia Byrd LAB BLOOD ORDERABLES Final R esult Performing Organization Address [facility]/ZIP Co de Phone Number [facility] [address] [place] [address] * (ABNORMAL) CBC without differential (06/25/2025 3:38 AM CDT) Pathologist [facility] WBC 10.59(H) 3.80 - 9.90 K/cumm Hgb 10.4(L) 11.9 - 15.5 g/dL [facility] Hct 33.1(L) 35.6 - 45.5 % [facility] Plt 223 150 - 400 K/cumm [facility] MPV 12.2 9.1 - 12.3 fL [facility] RBC 3.74(L) 3.90 - 5.20 M/cumm [facility] MCV 88.5 81.3 - 96.4 fL [facility] MCH 27.8 27.1 - 33.3 pg [facility] MCHC 31.4(L) 32.3 - 35.7 g/dL [facility] RDW CV 17.6(H) 11.1 - 14.9 % [facility] RDW SD 55.1(H) 35.7 - 48.1 fL [facility] NRBC abs 0.00 0.00 - 0.01 K/cumm [facility] Blood 06/25/2025 3:38 AM CDT 06/25/2025 3:55 AM CDT Gordo Corrales MD LAB BLOOD ORDERABLES Fi nal Result Performing Organization Address City/[facility]/ZIP Co de Phone Number [facility] [address] Department of [employer] [place], [place] [phone] * Magnesium (06/25/2025 3:38 AM CDT) Pathologist [facility] Magnesium 1.6 1.4 - 2.5 mg/dL Comment:Reviewed Blood 06/25/2025 3:38 AM CDT 06/25/2025 3:55 AM CDT us Chris Johnston MD LAB BLOOD ORDERABLES Final R esult [facility] [address] [place] [address] * (ABNORMAL) Renal function panel (06/25/2025 3:38 AM CDT) Sodium 141 135 - 145 mmol/L Potassium, pl 2.9(L) 3.3 - 4.9 mmol/L [facility] Chloride 96(L) 97 - 110 mmol/L [facility] CO2 34(H) 22 - 32 mmol/L [facility] Anion gap 11 2 - 15 mmol/L [facility] BUN 23 6 - 25 mg/dL [facility] Creatinine 0.81 0.60 - 1.10 mg/dL [facility] Glucose 123 70 - 199 mg/dL [facility] Comment: Interpretive Data Fasting glucose >/= 126 [...] 2022. Calcium 8.2(L) 8.5 - 10.3 mg/dL [facility] Phosphorus, pl 2.7 2.3 - 4.5 mg/dL [facility] Albumin 3.1(L) 3.5 - 5.0 g/dL [facility] Blood 06/25/2025 3:38 AM CDT 06/25/2025 3:55 AM CDT us Nuvia Byrd DO LAB BLOOD ORDERABLES Final R esult [facility] [address] [place] [address] * POCT glucose (06/24/2025 8:26 PM CDT) [...] - DEVICE Final Result Performing Organization Address City/[facility]/ZIP Co de Phone Number [facility] [address] [place] [address] * POCT glucose (06/24/2025 4:57 PM CDT) [...] - DEVICE Final Result Performing Organization Address City/[facility]/ZIP Co de Phone Number [facility] [address] Department [place] [address] * Phosphorus (06/24/2025 1:17 PM CDT) Phosphorus, pl 4.3 2.3 - 4.5 mg/dL Comment:Reviewed Blood 06/24/2025 1:17 PM CDT 06/24/2025 1:33 PM CDT Narrative [facility] - 06/24/2025 2:02 PM CDT Draw 1 hour after supplemental sodium phosphate infusion completed Marita Ray MD LAB BLOOD ORDERABLES Fin al Result Performing Organization Address [facility] Co de Phone Number [facility] [address] [facility] [place] [address] * POCT glucose (06/24/2025 11:42 AM CDT) Glucose, POC 174 70 - 199 mg/dL Comment: For Glucose values <35 mg/dl when Hematocrit is >60 mg/dl,the test may not accurately detect significant hypoglycemia,and testing in the Laboratory should be considered if clinically indicated. Blood 06/24/2025 11:4 2 AM CDT 06/24/2025 11:42 AM CDT Chris Johnston MD LAB POCT ORDERABLES - DEVICE Final Result Performing Organization Address [facility] Co de Phone Number [facility] [address] [facility] [employer] [place], [place] [phone] * Calcium, ionized (06/24/2025 8:55 AM CDT) Calcium, Ionized 4.63 4.50 - 5.10 mg/dL Blood 06/24/2025 8:55 AM CDT 06/24/2025 8:59 AM CDT Chris Johnston MD LAB BLOOD ORDERABLES Final R esult Performing Organization Address [facility] Co de Phone Number [facility] [address] [facility] [employer] [place], [place] [id number] * POCT glucose (06/24/2025 7:55 AM CDT) Glucose, POC 105 70 - 199 mg/dL Comment: For Glucose values <35 mg/dl when Hematocrit is >60 mg/dl,the test may not accurately detect significant hypoglycemia,and testing in the Laboratory should be considered if clinically indicated. Blood 06/24/2025 7:55 AM CDT 06/24/2025 7:55 AM CDT Chris Johnston MD LAB POCT ORDERABLES - DEVICE Final Result [facility] [address] [place] [address] * XR Chest 1 View (06/24/2025 5:05 [...] 3:18 AM CDT 06/24/2025 3:28 AM CDT [facility] BLOOD ORDERABLES Final R esult Performing Organization Address [facility]/ZIP Co de Phone Number [facility] [address] [employer] [place], [place] [phone] * (ABNORMAL) Calcium, ionized (06/24/2025 3:18 AM CDT) Calcium, Ionized 3.55(L) 4.50 - 5.10 mg/dL Blood 06/24/2025 3:18 AM CDT 06/24/2025 3:21 AM [facility] Final R esult Performing Organization Address [facility]/ZIP Co de Phone Number [facility] [address] Department of [employer] [place], [place] [phone] * (ABNORMAL) CBC without differential (06/24/2025 3:18 AM CDT) WBC 10.79(H) 3.80 - 9.90 K/cumm Hgb 9.9(L) 11.9 - 15.5 g/dL [facility] Hct 32.0(L) 35.6 - 45.5 % [facility] Plt 180 150 - 400 K/cumm [facility] MPV 11.9 9.1 - 12.3 fL [facility] RBC 3.57(L) 3.90 - 5.20 M/cumm [facility] MCV 89.6 81.3 - 96.4 fL [facility] MCH 27.7 27.1 - 33.3 pg [facility] MCHC 30.9(L) 32.3 - 35.7 g/dL [facility] RDW CV 17.4(H) 11.1 - 14.9 % [facility] RDW SD 55.9(H) 35.7 - 48.1 fL [facility] NRBC abs 0.00 0.00 - 0.01 K/cumm [facility] Blood 06/24/2025 3:1 8 AM CDT 06/24/2025 3:28 AM CDT Gordo Corrales MD LAB BLOOD ORDERABLES Fi nal Result Performing Organization Address [facility]/ZIP Co de Phone Number [facility] [address] [employer] [place], [place] [id number] * Magnesium (06/24/2025 3:18 AM CDT) Pathologist [facility] Magnesium 2.3 1.4 - 2.5 mg/dL Blood 06/24/2025 3:18 AM CDT 06/24/2025 3:28 AM CDT us Chris Johnston MD LAB BLOOD ORDERABLES Final R esult Performing Organization Address City/[facility]/ZIP Co de Phone Number [facility] [address] [employer] [place] [address] * (ABNORMAL) Renal function panel (06/24/2025 3:18 AM CDT) Sodium 143 135 - 145 mmol/L Potassium, pl 4.8 3.3 - 4.9 mmol/L [facility] Chloride 107 97 - 110 mmol/L [facility] CO2 27 22 - 32 mmol/L [facility] Anion gap 9 2 - 15 mmol/L [facility] BUN 19 6 - 25 mg/dL [facility] Creatinine 0.87 0.60 - 1.10 mg/dL [facility] Glucose 135 70 - 199 mg/dL [facility] Comment: Interpretive Data Fasting glucose >/= 126 [...] 2022. Calcium 8.1(L) 8.5 - 10.3 mg/dL [facility] Phosphorus, pl 2.1(L) 2.3 - 4.5 mg/dL [facility] Albumin 2.5(L) 3.5 - 5.0 g/dL [facility] Blood 06/24/2025 3:18 AM CDT 06/24/2025 3:28 AM CDT us Nuvia Byrd DO LAB BLOOD ORDERABLES Final R esult [facility] [address] [place] [address] * (ABNORMAL) Blood gas, arterial (06/23/2025 9:42 PM CDT) pH, Art 7.37 7.35 - 7.45 PCO2, Arterial 67(H) 35 - 45 mmHg [facility] PO2, Arterial 96 83 - 108 mmHg [facility] HCO3 Art (Calculated) 39(H) 20 - 30 mmol/L [facility] BE, art 11 mmol/L [facility] Comment: Interpretive Data No Reference Range Established Current Interpretive Data was last revised on 2017 O2 Sat Art (Calculated) 97 94 - 98 % [facility] Blood 06/23/2025 9:42 PM CDT 06/23/2025 9:46 PM CDT Result [facility] Marita Ray MD LAB BLOOD ORDERABLES Fin al Result Performing Organization Address [facility] Co de Phone Number [facility] [address] [facility] [place] [address] * Lactate (06/23/2025 9:29 PM CDT) Lactate 0.9 0.7 - 2.0 mmol/L Blood 06/23/2025 9:29 PM CDT 06/23/2025 9:46 PM CDT Marita Ray MD LAB BLOOD ORDERABLES Fin al Result Performing Organization Address [facility] Co de Phone Number [facility] [address] [facility] [place] [address] * (ABNORMAL) Calcium, ionized (06/23/2025 9:29 PM CDT) Calcium, Ionized 3.92(L) 4.50 - 5.10 mg/dL Blood 06/23/2025 9:29 PM CDT 06/23/2025 9:46 PM CDT Result [facility] Marita Ray MD LAB BLOOD ORDERABLES Fin al Result Performing Organization Address [facility] Co de Phone Number [facility] [address] [place] [address] * Magnesium (06/23/2025 8:44 PM CDT) Magnesium 2.3 1.4 - 2.5 mg/dL Comment:Reviewed Blood 06/23/2025 8:44 PM CDT 06/23/2025 8:47 PM CDT Narrative [facility] - 06/23/2025 9:16 PM CDT Obtain 1 hour after magnesium infusion completed. Chris Johnston MD LAB BLOOD ORDERABLES Final R esult Performing Organization Address [facility]/ZIP Co de Phone Number [facility] [address] [facility] [place] [address] * POCT glucose (06/23/2025 8:19 PM CDT) Glucose, POC 124 70 - 199 mg/dL Comment: For Glucose values <35 mg/dl when Hematocrit is >60 mg/dl,the test may not accurately detect significant hypoglycemia,and testing in the Laboratory should be considered if clinically indicated. Blood 06/23/2025 8:19 PM CDT 06/23/2025 8:19 PM CDT Jorge Macias MD LAB POCT ORDERABLES - DE VICE Final Result Performing Organization Address [facility] Co de Phone Number [facility] [address] [facility] [place] [address] * (ABNORMAL) Blood gas, arterial (06/23/2025 7:04 PM CDT) pH, Art 7.34(L) 7.35 - 7.45 PCO2, Arterial 74(H) 35 - 45 mmHg [facility] PO2, Arterial 92 83 - 108 mmHg [facility] HCO3 Art (Calculated) 40(H) 20 - 30 mmol/L [facility] BE, art 11 mmol/L [facility] Comment: Interpretive Data No Reference Range Established Current Interpretive Data was last revised on 2017 O2 Sat Art (Calculated) 97 94 - 98 % [facility] Blood 06/23/2025 7:04 PM CDT 06/23/2025 7:18 PM CDT Chris Johnston MD LAB BLOOD ORDERABLES Final R esult Performing Organization Address [facility]/ZIP Co de Phone Number [facility] [address] [facility] [place] [address] * (ABNORMAL) Hemoglobin and hematocrit (06/23/2025 5:53 PM CDT) Hgb 10.5(L) 11.9 - 15.5 g/dL Hct 36.4 35.6 - 45.5 % [facility] Blood 06/23/2025 5:53 PM CDT 06/23/2025 5:59 PM CDT Chris Johnston MD LAB BLOOD ORDERABLES Final R esult [facility] [address] [facility] [place] [address] * (ABNORMAL) Potassium (06/23/2025 5:33 PM CDT) Potassium, pl 2.7(C) 3.3 - 4.9 mmol/L Comment:Critical result call ed to and read back by Kayla Franklin on 06.23.2025 1818 to [email or web address] Blood 06/23/2025 5:33 PM CDT 06/23/2025 5:38 PM CDT Chris Johnston MD LAB BLOOD ORDERABLES Final R esult Performing Organization Address City/[facility]/ZIP Co de Phone Number [facility] [address] [facility] [employer] [place], [place] [id number] * (ABNORMAL) Magnesium (06/23/2025 5:33 PM CDT) [facility] Magnesium 1.0(L) 1.4 - 2.5 mg/dL Blood 06/23/2025 5:33 PM CDT 06/23/2025 5:38 PM CDT Chris Johnston MD LAB BLOOD ORDERABLES Final R esult [facility] [address] Department [employer] [place], [place] [id number] * (ABNORMAL) Blood gas, arterial (06/23/2025 5:33 PM CDT) pH, Art 7.24(L) 7.35 - 7.45 PCO2, Arterial 82(H) 35 - 45 mmHg [facility] PO2, Arterial 101 83 - 108 mmHg [facility] HCO3 Art (Calculated) 35(H) 20 - 30 mmol/L [facility] BE, art 5 mmol/L [facility] Comment: Interpretive Data No Reference Range Established Current Interpretive Data was last revised on 2017 O2 Sat Art (Calculated) 97 94 - 98 % [facility] Blood 06/23/2025 5:33 PM CDT 06/23/2025 5:37 PM CDT us Chris Johnston MD LAB BLOOD ORDERABLES Final R esult Performing Organization Address City/[facility]/ZIP Co de Phone Number [facility] [address] [place] [address] * POCT glucose (06/23/2025 5:32 PM CDT) Pathologist [facility] Glucose, POC 140 70 - 199 mg/dL Comment: For Glucose values <35 mg/dl when Hematocrit is >60 mg/dl,the test may not accurately detect significant hypoglycemia,and testing in the Laboratory should be considered if clinically indicated. Blood 06/23/2025 5:32 PM CDT 06/23/2025 5:32 PM CDT us Jorge Macias MD LAB POCT ORDERABLES - DE VICE Final Result Performing Organization Address City/[facility]/ZIP Co de Phone Number [facility] [address] [place] [address] * (ABNORMAL) Pro B-type natriuretic peptide (06/23/2025 [...] Eur Heart J. 2006:27:330-337. 2. Fahad RW, Mathew AM. J. AM Chadwick Cardiol: Cardiovasc Imag. 2009;2: 216- 225. Interpretive Data Last Revised Date: 2018. Blood 06/23/2025 1:30 PM CDT 06/23/2025 1:30 PM CDT Gordo Corrales MD LAB BLOOD ORDERABLES nal Result [facility] [address] [place] [address] * Sepsis Lactate w/ Reflex (06/23/2025 1:03 PM CDT) Sepsis Lactate 1.1 0.7 - 2.0 mmol/L Blood 06/23/2025 1:03 PM CDT 06/23/2025 1:13 PM CDT us Gerson العراقي LAB BLOOD ORDERABLES Final Resu lt [facility] [address] Department [place] [address] * XR Chest 1 View (06/23/2025 1:02 [...] and mitral annuloplasty. There is a reverse [id number] right total shoulder arthroplasty. Electronically signed by: [...] and mitral annuloplasty. There is a reverse [id number] right total shoulder arthroplasty. Electronically signed by: Foster Chadwick M.D. Gordo Corrales MD IMG XR PROCEDURES Final Result * (ABNORMAL) Blood gas, arterial (06/23/2025 12:47 PM CDT) pH, Art 7.25(L) 7.35 - 7.45 PCO2, Arterial 77(H) 35 - 45 mmHg [facility] PO2, Arterial 95 83 - 108 mmHg [facility] HCO3 Art (Calculated) 34(H) 20 - 30 mmol/L [facility] BE, art 4 mmol/L [facility] Comment: Interpretive Data No Reference Range Established Current Interpretive Data was last revised on 2017 O2 Sat Art (Calculated) 96 94 - 98 % [facility] Blood 06/23/2025 12:4 7 PM CDT 06/23/2025 12:50 PM CDT Gerson العراقي LAB BLOOD ORDERABLES Final Resu lt Performing Organization Address [facility]/ZIP Co de Phone Number [facility] [address] [employer] [place] [address] * (ABNORMAL) POCT glucose (06/23/2025 11:17 AM CDT) Glucose, POC 259(H) 70 - 199 mg/dL Comment: For Glucose values <35 mg/dl when Hematocrit is >60 mg/dl,the test may not accurately detect significant hypoglycemia,and testing in the Laboratory should be considered if clinically indicated. Blood 06/23/2025 11:1 7 AM CDT 06/23/2025 11:17 AM CDT us Jorge Macias MD LAB POCT ORDERABLES - DE VICE Final Result Performing Organization Address [facility]/ZIP Co de Phone Number [facility] [address] [place] [address] * POCT glucose (06/23/2025 5:32 AM CDT) Glucose, POC 142 70 - 199 mg/dL Comment: For Glucose values <35 mg/dl when Hematocrit is >60 mg/dl,the test may not accurately detect significant hypoglycemia,and testing in the Laboratory should be considered if clinically indicated. Blood 06/23/2025 5:32 AM CDT 06/23/2025 5:32 AM CDT us Jorge Macias MD LAB POCT ORDERABLES - DE VICE Final Result Performing Organization Address [facility]/ZIP Co de Phone Number [facility] [address] Department [place], [place] [id number] * eGFR (06/23/2025 4:54 AM CDT) eGFR [...] ORDERABLES Final R esult Performing Organization Address City/[facility]/ZIP Co de Phone Number [facility] [address] Department of [place], [place] [id number] * Calcium, ionized (06/23/2025 4:54 AM CDT) Calcium, Ionized 4.59 4.50 - 5.10 mg/dL Blood 06/23/2025 4:54 AM CDT 06/23/2025 4:58 AM CDT us Nuvia Byrd DO LAB BLOOD ORDERABLES Final R esult Performing Organization Address [facility] Co de Phone Number [facility] [address] Department [place], [place] [id number] * (ABNORMAL) CBC without differential (06/23/2025 4:54 AM CDT) WBC 11.15(H) 3.80 - 9.90 K/cumm Hgb 12.3 11.9 - 15.5 g/dL [facility] Hct 40.1 35.6 - 45.5 % [facility] Plt 296 150 - 400 K/cumm [facility] MPV 12.8(H) 9.1 - 12.3 fL [facility] RBC 4.46 3.90 - 5.20 M/cumm [facility] MCV 89.9 81.3 - 96.4 fL [facility] MCH 27.6 27.1 - 33.3 pg [facility] MCHC 30.7(L) 32.3 - 35.7 g/dL [facility] RDW CV 17.6(H) 11.1 - 14.9 % [facility] RDW SD 56.6(H) 35.7 - 48.1 fL [facility] NRBC abs 0.00 0.00 - 0.01 K/cumm [facility] Blood 06/23/2025 4:54 AM CDT 06/23/2025 6:31 AM CDT us Gordo Corrales MD LAB BLOOD ORDERABLES Fi nal Result Performing Organization Address City/[facility]/ZIP Co de Phone Number [facility] [address] Department of [place], [place] [id number] * (ABNORMAL) Renal function panel (06/23/2025 4:54 AM CDT) Sodium 144 135 - 145 mmol/L Potassium, pl 3.5 3.3 - 4.9 mmol/L [facility] Chloride 103 97 - 110 mmol/L [facility] CO2 29 22 - 32 mmol/L [facility] Anion gap 12 2 - 15 mmol/L [facility] BUN 18 6 - 25 mg/dL [facility] Creatinine 0.61 0.60 - 1.10 mg/dL [facility] Glucose 152 70 - 199 mg/dL [facility] Comment: Interpretive Data Fasting glucose >/= 126 [...] 2022. Calcium 8.4(L) 8.5 - 10.3 mg/dL [facility] Phosphorus, pl 1.9(L) 2.3 - 4.5 mg/dL [facility] Albumin 3.0(L) 3.5 - 5.0 g/dL [facility] Blood 06/23/2025 4:54 AM CDT 06/23/2025 6:32 AM CDT Nuvia Byrd DO LAB BLOOD ORDERABLES Final R esult [facility] [address] [place] [address] * POCT glucose (06/22/2025 8:10 PM CDT) [facility] Signature Glucose, POC 195 70 - 199 mg/dL Comment: For Glucose values <35 mg/dl when Hematocrit is >60 mg/dl,the test may not accurately detect significant hypoglycemia,and testing in the Laboratory should be considered if clinically indicated. Blood 06/22/2025 8:10 PM CDT 06/22/2025 8:10 PM CDT Jorge Macias MD LAB POCT ORDERABLES - DE VICE Final Result Performing Organization Address [facility] Co de Phone Number [facility] [address] [facility] [place] [address] * POCT glucose (06/22/2025 4:15 PM CDT) [...] DE VICE Final Result Performing Organization Address [facility] de Phone Number [facility] [address] [facility] [place] [address] * POCT glucose (06/22/2025 11:16 AM CDT) [...] DE VICE Final Result Performing Organization Address [facility] Co de Phone Number [facility] [address] [facility] [place] [address] * POCT glucose (06/22/2025 6:05 AM CDT) [...] DE VICE Final Result Performing Organization Address [facility]/ZIP Co de Phone Number [facility] [address] Department of [place], [place] [phone] * eGFR (06/22/2025 5:17 AM CDT) eGFR [...] ORDERABLES Final R esult Performing Organization Address City/[facility]/ZIP Co de Phone Number [facility] [address] Department of [place], [place] [phone] * Calcium, ionized (06/22/2025 5:17 AM CDT) Pathologist [facility] Calcium, Ionized 4.57 4.50 - 5.10 mg/dL Blood 06/22/2025 5:17 AM CDT 06/22/2025 5:25 AM CDT us Nuvia Byrd DO LAB BLOOD ORDERABLES Final R esult Performing Organization Address City/[facility]/ZIP Co de Phone Number [facility] [address] [employer] [place] [address] * (ABNORMAL) CBC without differential (06/22/2025 5:17 AM CDT) [facility] WBC 12.10(H) 3.80 - 9.90 K/cumm Hgb 12.9 11.9 - 15.5 g/dL [facility] Hct 41.4 35.6 - 45.5 % [facility] Plt 330 150 - 400 K/cumm [facility] MPV 12.3 9.1 - 12.3 fL [facility] RBC 4.61 3.90 - 5.20 M/cumm [facility] MCV 89.8 81.3 - 96.4 fL [facility] MCH 28.0 27.1 - 33.3 pg [facility] MCHC 31.2(L) 32.3 - 35.7 g/dL [facility] RDW CV 17.2(H) 11.1 - 14.9 % [facility] RDW SD 55.0(H) 35.7 - 48.1 fL [facility] NRBC abs 0.00 0.00 - 0.01 K/cumm [facility] Blood 06/22/2025 5:17 AM CDT 06/22/2025 5:37 AM CDT Gordo Corrales MD LAB BLOOD ORDERABLES Fi nal Result [facility] [address] [place] [address] * (ABNORMAL) Renal function panel (06/22/2025 5:17 AM CDT) Pathologist [facility] Sodium 145 135 - 145 mmol/L Potassium, pl 3.2(L) 3.3 - 4.9 mmol/L [facility] Chloride 105 97 - 110 mmol/L [facility] CO2 32 22 - 32 mmol/L [facility] Anion gap 8 2 - 15 mmol/L [facility] BUN 20 6 - 25 mg/dL [facility] Creatinine 0.72 0.60 - 1.10 mg/dL [facility] Glucose 153 70 - 199 mg/dL [facility] Comment: Interpretive Data Fasting glucose >/= 126 [...] 2022. Calcium 8.5 8.5 - 10.3 mg/dL [facility] Phosphorus, pl 2.3 2.3 - 4.5 mg/dL [facility] Albumin 3.2(L) 3.5 - 5.0 g/dL [facility] Blood 06/22/2025 5:17 AM CDT 06/22/2025 5:37 AM CDT us Nuvia Byrd DO LAB BLOOD ORDERABLES Final R esult [facility] [address] Department [place] [address] * POCT glucose (06/21/2025 8:52 PM CDT) Pathologist [facility] Glucose, POC 156 70 - 199 mg/dL Comment: For Glucose values <35 mg/dl when Hematocrit is >60 mg/dl,the test may not accurately detect significant hypoglycemia,and testing in the Laboratory should be considered if clinically indicated. Blood 06/21/2025 8:52 PM CDT 06/21/2025 8:52 PM CDT Jorge Macias MD LAB POCT ORDERABLES - DE VICE Final Result Performing Organization Address [facility] Co de Phone Number [facility] [address] [place] [address] * (ABNORMAL) POCT glucose (06/21/2025 4:13 PM [...] DE VICE Final Result Performing Organization Address [facility] de Phone Number [facility] [address] Department [place], [place] [phone] * Calcium, ionized (06/21/2025 1:49 PM CDT) Calcium, Ionized 4.66 4.50 - 5.10 mg/dL Blood 06/21/2025 1:49 PM CDT 06/21/2025 1:54 PM CDT Nuvia Byrd DO LAB BLOOD ORDERABLES Final R esult Performing Organization Address [facility] Co de Phone Number [facility] [address] Department [place], [place] [phone] * (ABNORMAL) CBC without differential (06/21/2025 1:49 PM CDT) WBC 13.78(H) 3.80 - 9.90 K/cumm Hgb 12.0 11.9 - 15.5 g/dL [facility] Hct 38.7 35.6 - 45.5 % [facility] Plt 301 150 - 400 K/cumm [facility] MPV 12.4(H) 9.1 - 12.3 fL [facility] RBC 4.30 3.90 - 5.20 M/cumm [facility] MCV 90.0 81.3 - 96.4 fL [facility] MCH 27.9 27.1 - 33.3 pg [facility] MCHC 31.0(L) 32.3 - 35.7 g/dL [facility] RDW CV 17.2(H) 11.1 - 14.9 % [facility] RDW SD 55.1(H) 35.7 - 48.1 fL [facility] NRBC abs 0.00 0.00 - 0.01 K/cumm [facility] Blood 06/21/2025 1:49 PM CDT 06/21/2025 2:00 PM CDT Jorge Macias MD LAB BLOOD ORDERABLES Fin al Result Performing Organization Address [facility]/ZIP Co de Phone Number [facility] [address] [place] [address] * POCT glucose (06/21/2025 11:15 AM CDT) [facility] Glucose, POC 185 70 - 199 mg/dL Comment: For Glucose values <35 mg/dl when Hematocrit is >60 mg/dl,the test may not accurately detect significant hypoglycemia,and testing in the Laboratory should be considered if clinically indicated. Blood 06/21/2025 11:1 5 AM CDT 06/21/2025 11:15 AM CDT Jorge Macias MD LAB POCT ORDERABLES - DE VICE Final Result Performing Organization Address City/[facility]/ZIP Co de Phone Number [facility] [address] [place] [address] * eGFR (06/21/2025 6:08 AM CDT) eGFR >90 >=60 mL/min/1. 73 [...] DO LAB BLOOD ORDERABLES Final R esult [facility] [address] [place] [address] * (ABNORMAL) Renal function panel (06/21/2025 6:08 AM CDT) Sodium 142 135 - 145 mmol/L Potassium, pl 4.1 3.3 - 4.9 mmol/L [facility] Comment:Hemolyzed; potassium value may be falsely elevated by as much as 0.3 - 0.5 mmol/L. Suggest redraw and reanalysis Chloride 106 97 - 110 mmol/L [facility] CO2 25 22 - 32 mmol/L [facility] Anion gap 11 2 - 15 mmol/L [facility] BUN 19 6 - 25 mg/dL [facility] Creatinine 0.59(L) 0.60 - 1.10 mg/dL [facility] Glucose 164 70 - 199 mg/dL [facility] Comment: Interpretive Data Fasting glucose >/= 126 [...] 2022. Calcium 8.5 8.5 - 10.3 mg/dL [facility] Phosphorus, pl 2.2(L) 2.3 - 4.5 mg/dL [facility] Albumin 3.0(L) 3.5 - 5.0 g/dL [facility] Blood 06/21/2025 6:08 AM CDT 06/21/2025 6:27 AM CDT us Nuvia Byrd DO LAB BLOOD ORDERABLES Final R esult Performing Organization Address [facility]/ZIP Co de Phone Number [facility] [address] [place] [address] * POCT glucose (06/21/2025 4:53 AM CDT) [facility] Signature Glucose, POC 142 70 - 199 mg/dL Comment: For Glucose values <35 mg/dl when Hematocrit is >60 mg/dl,the test may not accurately detect significant hypoglycemia,and testing in the Laboratory should be considered if clinically indicated. Blood 06/21/2025 4:53 AM CDT 06/21/2025 4:53 AM CDT us Jorge Macias MD LAB POCT ORDERABLES - DE VICE Final Result Performing Organization Address City/[facility]/ZIP Co de Phone Number [facility] [address] [place] [address] * POCT glucose (06/20/2025 8:28 PM CDT) Glucose, POC 190 70 - 199 mg/dL Comment: For Glucose values <35 mg/dl when Hematocrit is >60 mg/dl,the test may not accurately detect significant hypoglycemia,and testing in the Laboratory should be considered if clinically indicated. Blood 06/20/2025 8:28 PM CDT 06/20/2025 8:28 PM CDT Jorge Macias MD LAB POCT ORDERABLES - DE VICE Final Result Performing Organization Address City/[facility] Co de Phone Number [facility] [address] [facility] [place] [address] * POCT glucose (06/20/2025 4:39 PM CDT) Glucose, POC 191 70 - 199 mg/dL Comment: For Glucose values <35 mg/dl when Hematocrit is >60 mg/dl,the test may not accurately detect significant hypoglycemia,and testing in the Laboratory should be considered if clinically indicated. Blood 06/20/2025 4:39 PM CDT 06/20/2025 4:39 PM CDT Jorge Macias MD LAB POCT ORDERABLES - DE VICE Final Result Performing Organization Address City/[facility] Co de Phone Number [facility] [address] [place] [address] * POCT glucose (06/20/2025 11:22 AM CDT) [...] DE VICE Final Result Performing Organization Address City/[facility] Co de Phone Number [facility] [address] [facility] [place] [address] * POCT glucose (06/20/2025 6:41 AM CDT) [...] DE VICE Final Result Performing Organization Address [facility] Co de Phone Number [facility] [address] [place] [address] * eGFR (06/20/2025 4:43 AM CDT) [facility] eGFR >90 >=60 mL/min/1. 73 m2 [...] 4:43 AM CDT 06/20/2025 5:15 AM CDT [facility] BLOOD ORDERABLES Final R esult Performing Organization Address City/[facility]/ZIP Co de Phone Number [facility] [address] [facility] [place] [address] * Calcium, ionized (06/20/2025 4:43 AM CDT) Calcium, Ionized 4.63 4.50 - 5.10 mg/dL Blood 06/20/2025 4:43 AM CDT 06/20/2025 5:13 AM CDT [facility] BLOOD ORDERABLES Final R esult Performing Organization Address City/[facility] Co de Phone Number [facility] [address] [place] [address] * (ABNORMAL) CBC without differential (06/20/2025 4:43 AM CDT) Pathologist [facility] WBC 10.80(H) 3.80 - 9.90 K/cumm Hgb 12.6 11.9 - 15.5 g/dL [facility] Hct 40.5 35.6 - 45.5 % [facility] Plt 277 150 - 400 K/cumm [facility] MPV 12.4(H) 9.1 - 12.3 fL [facility] RBC 4.53 3.90 - 5.20 M/cumm [facility] MCV 89.4 81.3 - 96.4 fL [facility] MCH 27.8 27.1 - 33.3 pg [facility] MCHC 31.1(L) 32.3 - 35.7 g/dL [facility] RDW CV 16.7(H) 11.1 - 14.9 % [facility] RDW SD 52.9(H) 35.7 - 48.1 fL [facility] NRBC abs 0.00 0.00 - 0.01 K/cumm [facility] Blood 06/20/2025 4:43 AM CDT 06/20/2025 5:16 AM CDT Gordo Corrales MD LAB BLOOD ORDERABLES Fi nal Result [facility] [address] Department [place] [address] * (ABNORMAL) Renal function panel (06/20/2025 4:43 AM CDT) Sodium 143 135 - 145 mmol/L Potassium, pl 2.9(L) 3.3 - 4.9 mmol/L [facility] Chloride 104 97 - 110 mmol/L [facility] CO2 28 22 - 32 mmol/L [facility] Anion gap 11 2 - 15 mmol/L [facility] BUN 17 6 - 25 mg/dL [facility] Creatinine 0.60 0.60 - 1.10 mg/dL [facility] Glucose 142 70 - 199 mg/dL [facility] Comment: Interpretive Data Fasting glucose >/= 126 [...] 2022. Calcium 8.5 8.5 - 10.3 mg/dL [facility] Phosphorus, pl 2.0(L) 2.3 - 4.5 mg/dL [facility] Albumin 2.9(L) 3.5 - 5.0 g/dL [facility] Blood 06/20/2025 4:43 AM CDT 06/20/2025 5:15 AM CDT us Nuvia Byrd LAB BLOOD ORDERABLES Final R esult Performing Organization Address [facility] Co de Phone Number [facility] [address] [facility] [place] [address] * POCT glucose (06/19/2025 7:50 PM CDT) [...] - DEVICE Final Result Performing Organization Address [facility] de Phone Number [facility] [address] [facility] [place], [place] [id number] * POCT glucose (06/19/2025 4:31 PM CDT) Glucose, POC 149 70 - 199 mg/dL Comment: For Glucose values <35 mg/dl when Hematocrit is >60 mg/dl,the test may not accurately detect significant hypoglycemia,and testing in the Laboratory should be considered if clinically indicated. Blood 06/19/2025 4:31 PM CDT 06/19/2025 4:31 PM CDT Aly Montero MD LAB POCT ORDERABLES - DEVICE Final Result Performing Organization Address [facility] de Phone Number [facility] [address] [facility] [place], [place] [id number] * MRI Brain W WO Contrast (06/19/2025 11:58 AM CDT) Anatomical Region Laterality Modality Head and Neck N/A Magnetic Resonan ce 06/19/2025 3:07 PM CDT Impressions 06/19/2025 3:07 PM CDT 1. No acute intracranial abnormality or abnormal enhancement. 2. Microvascular ischemic white matter change. Electronically signed by: Helio Shen 06/19/2025 3:07 PM CDT MRI BRAIN W [...] change. Electronically signed by: Bhupendra Flores M.D. Gordo Corrales MD IM MRI PROCEDURES Tawnya l Result * MRI [...] neurosarcoidosis. Electronically signed by: Bhupendra Flores M.D. us [...] CDT 06/19/2025 8:06 AM CDT us Nuvia Byrd DO LAB BLOOD ORDERABLES Final R esult [facility] [address] [place] [address] * Calcium, ionized (06/19/2025 7:57 AM CDT) Calcium, Ionized 4.60 4.50 - 5.10 mg/dL Blood 06/19/2025 7:57 AM CDT 06/19/2025 8:03 AM CDT us Nuvia Byrd LAB BLOOD ORDERABLES Final R esult Performing Organization Address City/[facility]/ZIP Co de Phone Number [facility] [address] [place] [address] * (ABNORMAL) CBC without differential (06/19/2025 7:57 AM CDT) Pathologist [facility] WBC 9.63 3.80 - 9.90 K/cumm Hgb 12.1 11.9 - 15.5 g/dL [facility] Hct 37.9 35.6 - 45.5 % [facility] Plt 259 150 - 400 K/cumm [facility] MPV 12.1 9.1 - 12.3 fL [facility] RBC 4.27 3.90 - 5.20 M/cumm [facility] MCV 88.8 81.3 - 96.4 fL [facility] MCH 28.3 27.1 - 33.3 pg [facility] MCHC 31.9(L) 32.3 - 35.7 g/dL [facility] RDW CV 16.5(H) 11.1 - 14.9 % [facility] RDW SD 52.4(H) 35.7 - 48.1 fL [facility] NRBC abs 0.00 0.00 - 0.01 K/cumm [facility] Blood 06/19/2025 7:57 AM CDT 06/19/2025 8:06 AM CDT us Gordo Corrales MD LAB BLOOD ORDERABLES Fi nal Result [facility] [address] Department [place], [place] [id number] * (ABNORMAL) Renal function panel (06/19/2025 7:57 AM CDT) Pathologist [facility] Sodium 143 135 - 145 mmol/L Potassium, pl 3.3 3.3 - 4.9 mmol/L [facility] Chloride 106 97 - 110 mmol/L [facility] CO2 28 22 - 32 mmol/L [facility] Anion gap 9 2 - 15 mmol/L [facility] BUN 18 6 - 25 mg/dL [facility] Creatinine 0.68 0.60 - 1.10 mg/dL [facility] Glucose 130 70 - 199 mg/dL [facility] Comment: Interpretive Data Fasting glucose >/= 126 [...] 2022. Calcium 8.6 8.5 - 10.3 mg/dL [facility] Phosphorus, pl 2.3 2.3 - 4.5 mg/dL [facility] Albumin 2.9(L) 3.5 - 5.0 g/dL [facility] Blood 06/19/2025 7:57 AM CDT 06/19/2025 8:06 AM CDT us Nuvia Byrd DO LAB BLOOD ORDERABLES Final R esult Performing Organization Address City/[facility] Co de Phone Number [facility] [address] [place] [address] * POCT glucose (06/19/2025 5:56 AM CDT) [facility] Signature Glucose, POC 122 70 - 199 mg/dL Comment: For Glucose values <35 mg/dl when Hematocrit is >60 mg/dl,the test may not accurately detect significant hypoglycemia,and testing in the Laboratory should be considered if clinically indicated. Blood 06/19/2025 5:56 AM CDT 06/19/2025 5:56 AM CDT us Aly Montero MD LAB POCT ORDERABLES - DEVICE Final Result [facility] [address] [facility] [place], [place] [id number] * Potassium (06/18/2025 9:57 PM CDT) Potassium, pl 3.6 3.3 - 4.9 mmol/L Blood 06/18/2025 9:57 PM CDT 06/18/2025 9:57 PM CDT Aly Montero MD LAB BLOOD ORDERABLES Final R esult Performing Organization Address [facility] Co de Phone Number [facility] [address] [facility] [place] [address] * (ABNORMAL) POCT glucose (06/18/2025 9:43 PM CDT) Glucose, POC 227(H) 70 - 199 mg/dL Comment: For Glucose values <35 mg/dl when Hematocrit is >60 mg/dl,the test may not accurately detect significant hypoglycemia,and testing in the Laboratory should be considered if clinically indicated. Blood 06/18/2025 9:43 PM CDT 06/18/2025 9:43 PM CDT Result [facility] Aly Montero MD LAB POCT ORDERABLES - DEVICE Final Result Performing Organization Address [facility] Co de Phone Number [facility] [address] [place] [address] * Potassium (06/18/2025 7:55 PM CDT) Potassium, pl 3.9 3.3 - 4.9 mmol/L Blood 06/18/2025 7:55 PM CDT 06/18/2025 8:44 PM CDT Narrative [facility] - 06/18/2025 9:04 PM CDT Draw 1 hour after potassium IV finishes. Aly Montero MD LAB BLOOD ORDERABLES Final R esult Performing Organization Address [facility] Co de Phone Number [facility] [address] [facility] [employer] [place], [place] [id number] * (ABNORMAL) POCT glucose (06/18/2025 4:28 PM CDT) Glucose, POC 235(H) 70 - 199 mg/dL Comment: For Glucose values <35 mg/dl when Hematocrit is >60 mg/dl,the test may not accurately detect significant hypoglycemia,and testing in the Laboratory should be considered if clinically indicated. Blood 06/18/2025 4:28 PM CDT 06/18/2025 4:28 PM CDT Aly Montero MD LAB POCT ORDERABLES - DEVICE Final Result Performing Organization Address [facility] de Phone Number [facility] [address] [facility] [place] [address] * (ABNORMAL) POCT glucose (06/18/2025 11:47 AM [...] - DEVICE Final Result Performing Organization Address [facility] Co de Phone Number [facility] [address] [facility] [place], [place] [id number] * eGFR (06/18/2025 9:38 AM CDT) eGFR [...] 9:38 AM CDT 06/18/2025 10:15 AM CDT [facility] LAB BLOOD ORDERABLES Final R esult Performing Organization Address City/[facility] Co de Phone Number [facility] [address] [place] [address] * Calcium, ionized (06/18/2025 9:38 AM CDT) Pathologist [facility] Calcium, Ionized 4.67 4.50 - 5.10 mg/dL Blood 06/18/2025 9:38 AM CDT 06/18/2025 9:44 AM CDT [facility] BLOOD ORDERABLES Final R esult Performing Organization Address City/[facility] Co de Phone Number [facility] [address] [place] [address] * (ABNORMAL) CBC without differential (06/18/2025 9:38 AM CDT) Pathologist [facility] WBC 9.79 3.80 - 9.90 K/cumm Hgb 10.6(L) 11.9 - 15.5 g/dL [facility] Hct 34.4(L) 35.6 - 45.5 % [facility] Plt 263 150 - 400 K/cumm [facility] MPV 12.4(H) 9.1 - 12.3 fL [facility] RBC 3.82(L) 3.90 - 5.20 M/cumm [facility] MCV 90.1 81.3 - 96.4 fL [facility] MCH 27.7 27.1 - 33.3 pg [facility] MCHC 30.8(L) 32.3 - 35.7 g/dL [facility] RDW CV 16.3(H) 11.1 - 14.9 % [facility] RDW SD 52.0(H) 35.7 - 48.1 fL [facility] NRBC abs 0.00 0.00 - 0.01 K/cumm [facility] Blood 06/18/2025 9:38 AM CDT 06/18/2025 10:15 AM CDT Gordo Corrales MD LAB BLOOD ORDERABLES nal Result [facility] [address] Department [place] [address] * (ABNORMAL) Renal function panel (06/18/2025 9:38 AM CDT) Sodium 144 135 - 145 mmol/L Potassium, pl 2.4(C) 3.3 - 4.9 mmol/L [facility] Comment:Critical result call ed to [place] [address]/18/2025 to [id number] Chloride 108 97 - 110 mmol/L [facility] CO2 25 22 - 32 mmol/L [facility] Anion gap 11 2 - 15 mmol/L [facility] BUN 19 6 - 25 mg/dL [facility] Creatinine 0.65 0.60 - 1.10 mg/dL [facility] Glucose 193 70 - 199 mg/dL [facility] Comment: Interpretive Data Fasting glucose >/= 126 [...] 2022. Calcium 8.0(L) 8.5 - 10.3 mg/dL [facility] Phosphorus, pl 1.9(L) 2.3 - 4.5 mg/dL [facility] Albumin 2.5(L) 3.5 - 5.0 g/dL [facility] Blood 06/18/2025 9:38 AM CDT 06/18/2025 10:15 AM CDT us Nuvia Byrd DO LAB BLOOD ORDERABLES Final R esult Performing Organization Address [facility]/ZIP Co de Phone Number [facility] [address] [employer] [place] [address] * POCT glucose (06/18/2025 6:28 AM CDT) Glucose, POC 141 70 - 199 mg/dL Comment: For Glucose values <35 mg/dl when Hematocrit is >60 mg/dl,the test may not accurately detect significant hypoglycemia,and testing in the Laboratory should be considered if clinically indicated. Blood 06/18/2025 6:28 AM CDT 06/18/2025 6:28 AM CDT us Aly Montero MD LAB POCT ORDERABLES - DEVICE Final Result Performing Organization Address City/[facility]/ZIP Co de Phone Number [facility] [address] [place] [address] * (ABNORMAL) POCT glucose (06/17/2025 9:01 PM CDT) Glucose, POC 304(H) 70 - 199 mg/dL Comment: For Glucose values <35 mg/dl when Hematocrit is >60 mg/dl,the test may not accurately detect significant hypoglycemia,and testing in the Laboratory should be considered if clinically indicated. Blood 06/17/2025 9:01 PM CDT 06/17/2025 9:01 PM CDT Result [facility] Aly Montero MD LAB POCT ORDERABLES - DEVICE Final Result Performing Organization Address [facility] Co de Phone Number [facility] [address] Department [place] [place], [place] [id number] * (ABNORMAL) Potassium (06/17/2025 6:38 PM CDT) Pathologist [facility] Potassium, pl 3.1(L) 3.3 - 4.9 mmol/L Blood 06/17/2025 6:38 PM CDT 06/17/2025 6:55 PM CDT Result [facility] Aly Montero MD LAB BLOOD ORDERABLES Final R esult Performing Organization Address [facility] Co de Phone Number [facility] [address] Department [place], [place] [phone] * (ABNORMAL) POCT glucose (06/17/2025 4:16 PM [...] - DEVICE Final Result Performing Organization Address [facility] Co de Phone Number [facility] [address] Department of [place], [place] [id number] * POCT glucose (06/17/2025 11:15 AM CDT) Glucose, POC 192 70 - 199 mg/dL Comment: For Glucose values <35 mg/dl when Hematocrit is >60 mg/dl,the test may not accurately detect significant hypoglycemia,and testing in the Laboratory should be considered if clinically indicated. Blood 06/17/2025 11:1 5 AM CDT 06/17/2025 11:15 AM CDT Aly Montero MD LAB POCT ORDERABLES - DEVICE Final Result Performing Organization Address [facility] Co de Phone Number [facility] [address] Department [place] [address] * POCT glucose (06/17/2025 6:41 AM CDT) [...] - DEVICE Final Result Performing Organization Address [facility] Co de Phone Number [facility] [address] [place] [address] * eGFR (06/17/2025 6:39 AM CDT) eGFR [...] 6:39 AM CDT 06/17/2025 6:48 AM CDT [facility] BLOOD ORDERABLES Final R esult Performing Organization Address City/[facility]/ZIP Co de Phone Number [facility] [address] [place] [address] * (ABNORMAL) Calcium, ionized (06/17/2025 6:39 AM CDT) Calcium, Ionized 5.24(H) 4.50 - 5.10 mg/dL Blood 06/17/2025 6:39 AM CDT 06/17/2025 6:44 AM CDT [facility] BLOOD ORDERABLES Final R esult [facility] [address] Department [employer], [place] [id number] * (ABNORMAL) CBC without differential (06/17/2025 6:39 AM CDT) WBC 10.10(H) 3.80 - 9.90 K/cumm Hgb 12.2 11.9 - 15.5 g/dL [facility] Hct 37.3 35.6 - 45.5 % [facility] Plt 308 150 - 400 K/cumm [facility] MPV 11.9 9.1 - 12.3 fL [facility] RBC 4.31 3.90 - 5.20 M/cumm [facility] MCV 86.5 81.3 - 96.4 fL [facility] MCH 28.3 27.1 - 33.3 pg [facility] MCHC 32.7 32.3 - 35.7 g/dL [facility] RDW CV 15.8(H) 11.1 - 14.9 % [facility] RDW SD 49.5(H) 35.7 - 48.1 fL [facility] NRBC abs 0.00 0.00 - 0.01 K/cumm [facility] Blood 06/17/2025 6:39 AM CDT 06/17/2025 6:49 AM CDT us Gordo Corrales MD LAB BLOOD ORDERABLES Fi nal Result [facility] [address] Department [place] [address] * (ABNORMAL) Renal function panel (06/17/2025 6:39 AM CDT) Sodium 146(H) 135 - 145 mmol/L Potassium, pl 3.0(L) 3.3 - 4.9 mmol/L [facility] Chloride 106 97 - 110 mmol/L [facility] CO2 29 22 - 32 mmol/L [facility] Anion gap 11 2 - 15 mmol/L [facility] BUN 21 6 - 25 mg/dL [facility] Creatinine 0.72 0.60 - 1.10 mg/dL [facility] Glucose 168 70 - 199 mg/dL [facility] Comment: Interpretive Data Fasting glucose >/= 126 [...] 2022. Calcium 9.8 8.5 - 10.3 mg/dL [facility] Phosphorus, pl 2.0(L) 2.3 - 4.5 mg/dL [facility] Albumin 3.2(L) 3.5 - 5.0 g/dL [facility] Blood 06/17/2025 6:39 AM CDT 06/17/2025 6:48 AM CDT Nuvia Byrd DO LAB BLOOD ORDERABLES Final R esult Performing Organization Address City/[facility]/ZIP Co de Phone Number [facility] [address] Department of [employer] [place], [place] [id number] * (ABNORMAL) POCT glucose (06/16/2025 10:15 PM CDT) Glucose, POC 361(H) 70 - 199 mg/dL Comment: For Glucose values <35 mg/dl when Hematocrit is >60 mg/dl,the test may not accurately detect significant hypoglycemia,and testing in the Laboratory should be considered if clinically indicated. Blood 06/16/2025 10:1 5 PM CDT 06/16/2025 10:15 PM CDT us Aly Montero MD LAB POCT ORDERABLES - DEVICE Final Result Performing Organization Address [facility] Co de Phone Number [facility] [address] Department [place] [address] * eGFR (06/16/2025 7:24 AM CDT) eGFR [...] 7:24 AM CDT 06/16/2025 7:36 AM CDT [facility] BLOOD ORDERABLES Final R esult Performing Organization Address City/[facility]/ZIP Co de Phone Number [facility] [address] [place] [address] * (ABNORMAL) Calcium, ionized (06/16/2025 7:24 AM CDT) Calcium, Ionized 5.58(H) 4.50 - 5.10 mg/dL Blood 06/16/2025 7:24 AM CDT 06/16/2025 7:30 AM CDT us [facility] BLOOD ORDERABLES Final R esult Performing Organization Address City/[facility] Co de Phone Number [facility] [address] [employer] [place], [place] [phone] * (ABNORMAL) CBC without differential (06/16/2025 7:24 AM CDT) WBC 6.88 3.80 - 9.90 K/cumm Hgb 12.5 11.9 - 15.5 g/dL [facility] Hct 38.6 35.6 - 45.5 % [facility] Plt 283 150 - 400 K/cumm [facility] MPV 11.7 9.1 - 12.3 fL [facility] RBC 4.42 3.90 - 5.20 M/cumm [facility] MCV 87.3 81.3 - 96.4 fL [facility] MCH 28.3 27.1 - 33.3 pg [facility] MCHC 32.4 32.3 - 35.7 g/dL [facility] RDW CV 15.8(H) 11.1 - 14.9 % [facility] RDW SD 49.8(H) 35.7 - 48.1 fL [facility] NRBC abs 0.00 0.00 - 0.01 K/cumm [facility] Blood 06/16/2025 7:24 AM CDT 06/16/2025 7:35 AM CDT us Gordo Corrales MD LAB BLOOD ORDERABLES Fi nal Result Performing Organization Address City/[facility] Co de Phone Number [facility] [address] [place] [address] * Phosphorus (06/16/2025 7:24 AM CDT) Phosphorus, pl 2.4 2.3 - 4.5 mg/dL Blood 06/16/2025 7:24 AM CDT 06/16/2025 7:36 AM CDT us Nuvia Byrd DO LAB BLOOD ORDERABLES Final R esult Performing Organization Address [facility] Co de Phone Number [facility] [address] Department [place] [employer] [place], [place] [id number] * Magnesium (06/16/2025 7:24 AM CDT) Magnesium 1.4 1.4 - 2.5 mg/dL Blood 06/16/2025 7:24 AM CDT 06/16/2025 7:36 AM CDT us Richard Mckeon MD LAB BLOOD ORDERABLES Final Resul t Performing Organization Address [facility] Co de Phone Number [facility] [address] Department [place], [place] [id number] * (ABNORMAL) Bilirubin, direct (06/16/2025 7:24 AM CDT) Pathologist [facility] Bilirubin, direct 0.7(H) 0.1 - 0.3 mg/dL Blood 06/16/2025 7:24 AM CDT 06/16/2025 7:36 AM CDT us Nuvia Byrd LAB BLOOD ORDERABLES Final R esult [facility] [address] [place] [address] * (ABNORMAL) Comprehensive metabolic panel (06/16/2025 7:24 AM CDT) [facility] Sodium 141 135 - 145 mmol/L Potassium, pl 2.9(L) 3.3 - 4.9 mmol/L [facility] Chloride 101 97 - 110 mmol/L [facility] CO2 30 22 - 32 mmol/L [facility] Anion gap 10 2 - 15 mmol/L [facility] BUN 23 6 - 25 mg/dL [facility] Creatinine 0.78 0.60 - 1.10 mg/dL [facility] Glucose 219(H) 70 - 199 mg/dL [facility] Comment: Interpretive Data Fasting glucose >/= 126 [...] 2022. Calcium 10.3 8.5 - 10.3 mg/dL [facility] Bilirubin, total 1.1 0.1 - 1.2 mg/dL [facility] Protein, pl 6.0(L) 6.5 - 8.5 g/dL [facility] Albumin 3.4(L) 3.5 - 5.0 g/dL [facility] Alk phos 236(H) 40 - 130 Units/L [facility] ALT 35 7 - 45 Units/L [facility] AST 22 10 - 45 Units/L [facility] Blood 06/16/2025 7:24 AM CDT 06/16/2025 7:36 AM CDT Nuvia [facility] BLOOD ORDERABLES Final R esult Performing Organization Address City/[facility]/ZIP Co de Phone Number [facility] [address] [place] [address] * eGFR (06/15/2025 5:29 AM CDT) eGFR [...] AM CDT 06/15/2025 5:48 AM CDT Nuvia Wetzel [facility] BLOOD ORDERABLES Final R esult Performing Organization Address City/[facility]/ZIP Co de Phone Number [facility] [address] [place] [address] * (ABNORMAL) Differential, auto (06/15/2025 5:29 AM CDT) Neutrophil abs 6.84(H) 1.50 - 6.50 K/cumm Imm gran abs 0.05 0.00 - 0.10 K/cumm [facility] Lymphocyte abs 0.71(L) 0.80 - 3.30 K/cumm [facility] Monocyte abs 1.31(H) 0.20 - 0.80 K/cumm [facility] Eosinophil abs 0.00 0.00 - 0.50 K/cumm [facility] Basophil abs 0.01 0.00 - 0.10 K/cumm [facility] Neutrophil pct 76.6 % [facility] Comment: Interpretive Data Percent cell count reference ranges are not reported, since discordance with absolute values may lead to misinterpretation of CBC data. Current Interpretive Data was last revised on 2017. Imm gran pct 0.6 % [facility] Comment: Interpretive Data Percent cell count reference ranges are not reported, since discordance with absolute values may lead to misinterpretation of CBC data. Current Interpretive Data was last revised on 2017. Lymphocyte pct 8.0 % [facility] Comment: Interpretive Data Percent cell count reference ranges are not reported, since discordance with absolute values may lead to misinterpretation of CBC data. Current Interpretive Data was last revised on 2017. Monocyte pct 14.7 % [facility] Comment: Interpretive Data Percent cell count reference ranges are not reported, since discordance with absolute values may lead to misinterpretation of CBC data. Current Interpretive Data was last revised on 2017. Eosinophil pct 0.0 % [facility] Comment: Interpretive Data Percent cell count reference ranges are not reported, since discordance with absolute values may lead to misinterpretation of CBC data. Current Interpretive Data was last revised on 2017. Basophil pct 0.1 % [facility] Comment: Interpretive Data Percent cell count reference ranges are not reported, since discordance with absolute values may lead to misinterpretation of CBC data. Current Interpretive Data was last revised on 2017. Blood 06/15/2025 5:29 AM CDT 06/15/2025 5:46 AM CDT us Richard Mckeon MD LAB BLOOD ORDERABLES Final Resul t [facility] [address] [place] [address] * (ABNORMAL) Calcium, ionized (06/15/2025 5:29 AM CDT) Pathologist [facility] Calcium, Ionized 5.81(H) 4.50 - 5.10 mg/dL Blood 06/15/2025 5:29 AM CDT 06/15/2025 5:42 AM CDT us Nuvia Byrd DO LAB BLOOD ORDERABLES Final R esult Performing Organization Address City/[facility]/ZIP Co de Phone Number [facility] [address] [place] [address] * (ABNORMAL) CBC with auto differential (06/15/2025 5:29 AM CDT) [facility] WBC 8.92 3.80 - 9.90 K/cumm Hgb 12.7 11.9 - 15.5 g/dL [facility] Hct 40.3 35.6 - 45.5 % [facility] Plt 284 150 - 400 K/cumm [facility] MPV 12.0 9.1 - 12.3 fL [facility] RBC 4.51 3.90 - 5.20 M/cumm [facility] MCV 89.4 81.3 - 96.4 fL [facility] MCH 28.2 27.1 - 33.3 pg [facility] MCHC 31.5(L) 32.3 - 35.7 g/dL [facility] RDW CV 16.0(H) 11.1 - 14.9 % [facility] RDW SD 51.6(H) 35.7 - 48.1 fL [facility] NRBC abs 0.00 0.00 - 0.01 K/cumm [facility] Blood 06/15/2025 5:29 AM CDT 06/15/2025 5:46 AM CDT us Richard Mckeon MD LAB BLOOD ORDERABLES Final Resul t Performing Organization Address [facility] Co de Phone Number [facility] [address] [facility] [place] [address] * Phosphorus (06/15/2025 5:29 AM CDT) Phosphorus, pl 2.5 2.3 - 4.5 mg/dL Blood 06/15/2025 5:29 AM CDT 06/15/2025 5:48 AM CDT us Nuvia Byrd DO LAB BLOOD ORDERABLES Final R esult Performing Organization Address [facility] de Phone Number [facility] [address] [facility] [place] [address] * Magnesium (06/15/2025 5:29 AM CDT) Magnesium 1.5 1.4 - 2.5 mg/dL Blood 06/15/2025 5:29 AM CDT 06/15/2025 5:48 AM CDT Richard Mckeon MD LAB BLOOD ORDERABLES Final Resul t Performing Organization Address [facility] de Phone Number [facility] [address] [place] [address] * (ABNORMAL) Bilirubin, direct (06/15/2025 5:29 AM CDT) Bilirubin, direct 0.4(H) 0.1 - 0.3 mg/dL Comment:Slightly Hemolyzed S pecimen Blood 06/15/2025 5:29 AM CDT 06/15/2025 5:48 AM CDT Nuvia Byrd DO LAB BLOOD ORDERABLES Final R esult Performing Organization Address [facility] Co de Phone Number [facility] [address] [place] [address] * (ABNORMAL) Comprehensive metabolic panel (06/15/2025 5:29 AM CDT) Sodium 146(H) 135 - 145 mmol/L Potassium, pl 3.5 3.3 - 4.9 mmol/L [facility] Chloride 106 97 - 110 mmol/L [facility] CO2 30 22 - 32 mmol/L [facility] Anion gap 10 2 - 15 mmol/L [facility] BUN 31(H) 6 - 25 mg/dL [facility] Creatinine 0.98 0.60 - 1.10 mg/dL [facility] Glucose 138 70 - 199 mg/dL [facility] Comment: Interpretive Data Fasting glucose >/= 126 [...] 2022. Calcium 10.8(H) 8.5 - 10.3 mg/dL [facility] Bilirubin, total 0.9 0.1 - 1.2 mg/dL [facility] Protein, pl 5.8(L) 6.5 - 8.5 g/dL [facility] Albumin 3.2(L) 3.5 - 5.0 g/dL [facility] Alk phos 201(H) 40 - 130 Units/L [facility] ALT 26 7 - 45 Units/L [facility] AST 22 10 - 45 Units/L [facility] Comment:Slightly Hemolyzed S pecimen Blood 06/15/2025 5:29 AM CDT 06/15/2025 5:48 AM CDT us Nuvia Byrd DO LAB BLOOD ORDERABLES Final R esult [facility] [address] Department [place] [address] * CP-CRE culture, surveillance Rectal swab (06/14/2025 12:31 PM CDT) Report Final Report: Negative Comment:Testing performed by : [facility], [address] [place]., [address] Rectal swab 06/14/2025 12:3 1 PM CDT 06/14/2025 5:39 PM CDT Narrative [facility] 06/16/2025 12:25 PM CDT Interpretive Data The screening agar used for the detection of carbapenemase-producing Enterobacterales (CP-CRE) has not been approved by the Food and Drug Administration. The performance characteristics of this medium have been evaluated and verified by the [facility]. This media demonstrates highest sensitivity for KPC and NDM-1 producing isolates. This screening assay is exclusively intended for infection control and surveillance, not for patient diagnosis or treatment purposes. Current interpretive data was last revised on 2023. us Matti Barrientos MD LAB MICROBIOLOGY - GENERA L ORDERABLES Final Result Performing Organization Address [facility] de Phone Number [facility] [address] Department [place] [address] * Aldolase (06/14/2025 12:09 PM CDT) Aldolase 6.0 0.1 - 8.0 Units/L Comment:Testing performed by : [facility], [address] [place]., [address] Blood 06/14/2025 12:0 9 PM CDT 06/14/2025 5:13 PM CDT Richard Mckeon MD LAB BLOOD ORDERABLES Final Resul t Performing Organization Address [facility] Co de Phone Number [facility] [address] [place] [address] * (ABNORMAL) Creatine kinase (CK), total (06/14/2025 12:09 PM CDT) CK 15(L) 30 - 200 Units/L Blood 06/14/2025 12:0 9 PM CDT 06/14/2025 12:17 PM CDT us Richard Mckeon MD LAB BLOOD ORDERABLES Final Resul t Performing Organization Address [facility]/ZIP Co de Phone Number [facility] [address] Department [place] [address] * (ABNORMAL) eGFR (06/14/2025 6:52 AM CDT) Pathologist [facility] eGFR 55(L) >=60 mL/min/1. 73 m2 Comment: [...] ORDERABLES Final R esult Performing Organization Address City/[facility]/ZIP Co de Phone Number [facility] [address] Department [place] [id number] * (ABNORMAL) Differential, auto (06/14/2025 6:52 AM CDT) Neutrophil abs 11.18(H) 1.50 - 6.50 K/cumm Imm gran abs 0.11(H) 0.00 - 0.10 K/cumm [facility] Lymphocyte abs 1.27 0.80 - 3.30 K/cumm [facility] Monocyte abs 2.20(H) 0.20 - 0.80 K/cumm [facility] Eosinophil abs 0.01 0.00 - 0.50 K/cumm [facility] Basophil abs 0.03 0.00 - 0.10 K/cumm [facility] Neutrophil pct 75.5 % [facility] Comment: Interpretive Data Percent cell count reference ranges are not reported, since discordance with absolute values may lead to misinterpretation of CBC data. Current Interpretive Data was last revised on 2017. Imm gran pct 0.7 % [facility] Comment: Interpretive Data Percent cell count reference ranges are not reported, since discordance with absolute values may lead to misinterpretation of CBC data. Current Interpretive Data was last revised on 2017. Lymphocyte pct 8.6 % [facility] Comment: Interpretive Data Percent cell count reference ranges are not reported, since discordance with absolute values may lead to misinterpretation of CBC data. Current Interpretive Data was last revised on 2017. Monocyte pct 14.9 % [facility] Comment: Interpretive Data Percent cell count reference ranges are not reported, since discordance with absolute values may lead to misinterpretation of CBC data. Current Interpretive Data was last revised on 2017. Eosinophil pct 0.1 % [facility] Comment: Interpretive Data Percent cell count reference ranges are not reported, since discordance with absolute values may lead to misinterpretation of CBC data. Current Interpretive Data was last revised on 2017. Basophil pct 0.2 % [facility] Comment: Interpretive Data Percent cell count reference ranges are not reported, since discordance with absolute values may lead to misinterpretation of CBC data. Current Interpretive Data was last revised on 2017. Blood 06/14/2025 6:52 AM CDT 06/14/2025 7:13 AM CDT us Ricahrd Mckeon MD LAB BLOOD ORDERABLES Final Resul t Performing Organization Address City/[facility]/ZIP Co de Phone Number [facility] [address] Department of [employer] [place], [place] [id number] * (ABNORMAL) Calcium, ionized (06/14/2025 6:52 AM CDT) Calcium, Ionized 6.11(H) 4.50 - 5.10 mg/dL Blood 06/14/2025 6:52 AM CDT 06/14/2025 6:55 AM CDT us Nuvia Bydr DO LAB BLOOD ORDERABLES Final R esult Performing Organization Address City/[facility]/ZIP Co de Phone Number [facility] [address] [place] [address] * (ABNORMAL) CBC with auto differential (06/14/2025 6:52 AM CDT) WBC 14.80(H) 3.80 - 9.90 K/cumm Hgb 12.7 11.9 - 15.5 g/dL [facility] Hct 40.1 35.6 - 45.5 % [facility] Plt 392 150 - 400 K/cumm [facility] MPV 11.9 9.1 - 12.3 fL [facility] RBC 4.51 3.90 - 5.20 M/cumm [facility] MCV 88.9 81.3 - 96.4 fL [facility] MCH 28.2 27.1 - 33.3 pg [facility] MCHC 31.7(L) 32.3 - 35.7 g/dL [facility] RDW CV 16.1(H) 11.1 - 14.9 % [facility] RDW SD 51.5(H) 35.7 - 48.1 fL [facility] NRBC abs 0.00 0.00 - 0.01 K/cumm [facility] Blood 06/14/2025 6:52 AM CDT 06/14/2025 7:13 AM CDT Richard Mckeon MD LAB BLOOD ORDERABLES Final Resul t Performing Organization Address [facility] Co de Phone Number [facility] [address] [place] [address] * Phosphorus (06/14/2025 6:52 AM CDT) Phosphorus, pl 2.6 2.3 - 4.5 mg/dL Blood 06/14/2025 6:52 AM CDT 06/14/2025 7:13 AM CDT Nuvia Byrd DO LAB BLOOD ORDERABLES Final R esult Performing Organization Address [facility] Co de Phone Number [facility] [address] Department [employer] [place], [place] [phone] * Magnesium (06/14/2025 6:52 AM CDT) Magnesium 1.6 1.4 - 2.5 mg/dL Blood 06/14/2025 6:52 AM CDT 06/14/2025 7:13 AM CDT Richard Mckeon MD LAB BLOOD ORDERABLES Final Resul t Performing Organization Address [facility] Co de Phone Number [facility] [address] [facility] [employer] [place], [place] [phone] * Bilirubin, direct (06/14/2025 6:52 AM CDT) Bilirubin, direct 0.3 0.1 - 0.3 mg/dL Blood 06/14/2025 6:52 AM CDT 06/14/2025 7:13 AM CDT us Nuvia Byrd LAB BLOOD ORDERABLES Final R esult [facility] [address] Department [place] [address] * (ABNORMAL) Comprehensive metabolic panel (06/14/2025 6:52 AM CDT) Sodium 143 135 - 145 mmol/L Potassium, pl 3.3 3.3 - 4.9 mmol/L [facility] Chloride 103 97 - 110 mmol/L [facility] CO2 28 22 - 32 mmol/L [facility] Anion gap 12 2 - 15 mmol/L [facility] BUN 31(H) 6 - 25 mg/dL [facility] Creatinine 1.07 0.60 - 1.10 mg/dL [facility] Glucose 144 70 - 199 mg/dL [facility] Comment: Interpretive Data Fasting glucose >/= 126 [...] 2022. Calcium 12.1(H) 8.5 - 10.3 mg/dL [facility] Bilirubin, total 0.5 0.1 - 1.2 mg/dL [facility] Protein, pl 6.1(L) 6.5 - 8.5 g/dL [facility] Albumin 3.4(L) 3.5 - 5.0 g/dL [facility] Alk phos 232(H) 40 - 130 Units/L [facility] ALT 29 7 - 45 Units/L [facility] AST 26 10 - 45 Units/L [facility] Blood 06/14/2025 6:52 AM CDT 06/14/2025 7:13 AM CDT Nuvia Wetzel Carson LAB BLOOD ORDERABLES Final R esult Performing Organization Address [facility] Co de Phone Number [facility] [address] [facility] [employer] [place], [place] [phone] * (ABNORMAL) POCT glucose (06/13/2025 8:53 PM [...] DEVICE Fin al Result Performing Organization Address [facility] Co de Phone Number [facility] [address] Department [place] [place], [place] [phone] * POCT glucose (06/13/2025 6:54 PM CDT) Glucose, POC 199 70 - 199 mg/dL Comment: For Glucose values <35 mg/dl when Hematocrit is >60 mg/dl,the test may not accurately detect significant hypoglycemia,and testing in the Laboratory should be considered if clinically indicated. Blood 06/13/2025 6:54 PM CDT 06/13/2025 6:54 PM CDT Richard Mckeon MD LAB POCT ORDERABLES - DEVICE Fin al Result Performing Organization Address [facility] Co de Phone Number [facility] [address] [facility] [employer] [place], [place] [phone] * CT Head WO Contrast (06/13/2025 5:37 [...] it. Electronically signed by: Tulio Johnson M.D. Richard Mckeon MD IM CT PROCEDURES Final Result * (ABNORMAL) eGFR [...] 5:41 AM CDT 06/13/2025 6:58 AM CDT Nuvia Damari [facility] BLOOD ORDERABLES Final R esult Performing Organization Address City/[facility]/ZIP Co de Phone Number [facility] [address] [employer] [place], [place] [phone] * (ABNORMAL) Calcium, ionized (06/13/2025 5:41 AM CDT) Pathologist [facility] Calcium, Ionized 5.87(H) 4.50 - 5.10 mg/dL Blood 06/13/2025 5:41 AM CDT 06/13/2025 5:44 AM CDT Nuvia Wetzel [facility] BLOOD ORDERABLES Final R esult Performing Organization Address City/[facility] Co de Phone Number [facility] [address] [place] [address] * (ABNORMAL) CBC without differential (06/13/2025 5:41 AM CDT) [facility] WBC 9.59 3.80 - 9.90 K/cumm Hgb 11.5(L) 11.9 - 15.5 g/dL [facility] Hct 36.3 35.6 - 45.5 % [facility] Plt 314 150 - 400 K/cumm [facility] MPV 12.2 9.1 - 12.3 fL [facility] RBC 4.11 3.90 - 5.20 M/cumm [facility] MCV 88.3 81.3 - 96.4 fL [facility] MCH 28.0 27.1 - 33.3 pg [facility] MCHC 31.7(L) 32.3 - 35.7 g/dL [facility] RDW CV 16.1(H) 11.1 - 14.9 % [facility] RDW SD 50.6(H) 35.7 - 48.1 fL [facility] NRBC abs 0.00 0.00 - 0.01 K/cumm [facility] Blood 06/13/2025 5:41 AM CDT 06/13/2025 6:58 AM CDT Gordo Corrales MD LAB BLOOD ORDERABLES nal Result [facility] [address] Department of Laboratories [place], [place] [phone] * (ABNORMAL) Renal function panel (06/13/2025 5:41 AM CDT) [facility] Sodium 146(H) 135 - 145 mmol/L Potassium, pl 3.9 3.3 - 4.9 mmol/L [facility] Chloride 105 97 - 110 mmol/L [facility] CO2 26 22 - 32 mmol/L [facility] Anion gap 15 2 - 15 mmol/L [facility] BUN 30(H) 6 - 25 mg/dL [facility] Creatinine 1.14(H) 0.60 - 1.10 mg/dL [facility] Glucose 146 70 - 199 mg/dL [facility] Comment: Interpretive Data Fasting glucose >/= 126 [...] 2022. Calcium 12.4(H) 8.5 - 10.3 mg/dL [facility] Phosphorus, pl 3.3 2.3 - 4.5 mg/dL [facility] Albumin 3.1(L) 3.5 - 5.0 g/dL [facility] Blood 06/13/2025 5:41 AM CDT 06/13/2025 6:58 AM CDT Nuvia Byrd LAB BLOOD ORDERABLES Final R esult [facility] [address] Department [place] [address] * (ABNORMAL) eGFR (06/12/2025 6:05 PM CDT) [...] CDT 06/12/2025 6:05 PM CDT us Nuvia Damarijaida Byrd DO LAB BLOOD ORDERABLES Final R esult [facility] [address] [place] [address] * (ABNORMAL) Renal function panel (06/12/2025 6:05 PM CDT) Sodium 142 135 - 145 mmol/L Potassium, pl 3.5 3.3 - 4.9 mmol/L [facility] Chloride 104 97 - 110 mmol/L [facility] CO2 30 22 - 32 mmol/L [facility] Anion gap 8 2 - 15 mmol/L [facility] BUN 21 6 - 25 mg/dL [facility] Creatinine 1.06 0.60 - 1.10 mg/dL [facility] Glucose 170 70 - 199 mg/dL [facility] Comment: Interpretive Data Fasting glucose >/= 126 [...] 2022. Calcium 11.8(H) 8.5 - 10.3 mg/dL [facility] Phosphorus, pl 3.3 2.3 - 4.5 mg/dL [facility] Albumin 3.1(L) 3.5 - 5.0 g/dL [facility] Blood 06/12/2025 6:05 PM CDT 06/12/2025 6:05 PM CDT us Nuvia Byrd LAB BLOOD ORDERABLES Final R esult Performing Organization Address City/[facility]/ZIP Co de Phone Number [facility] [address] [place] [address] * (ABNORMAL) Calcium, ionized (06/12/2025 6:04 PM CDT) Calcium, Ionized 5.83(H) 4.50 - 5.10 mg/dL Blood 06/12/2025 6:04 PM CDT 06/12/2025 6:04 PM CDT us Nuvia Byrd [facility] BLOOD ORDERABLES Final R esult Performing Organization Address [facility] Co de Phone Number [facility] [address] Department [employer] [place], [place] [phone] * Cell Differential, Body Fluid (06/12/2025 2:17 PM CDT) Total cells diffed 100 % Comment: Interpretive Data Unless otherwise specified, the reference range and other method performance specifications have not been established for CSF/Body Fluid tests. The test results should be integrated into the clinical context for interpretation. Current interpretive data was last revised on 2019. Neutrophils, fld 5 % [facility] Lymphs, fld 7 % [facility] Monocyte, fld 85 % [facility] Eosinophils, fld 5 % [facility] Specimen type, fld BAL [facility] Fluid 06/12/2025 2:17 PM CDT 06/12/2025 6:55 PM CDT Nuvia Byrd LAB BODY FLUIDS AND STOOLS O RDERABLES Final Result Performing Organization Address [facility] Co de Phone Number [facility] [address] Department of [employer] [place], [place] [phone] * Aerobic culture and gram stain Bronchoalveolar lavage Lobe, right upper (06/12/2025 2:17 PM CDT) Direct Specimen Exam Stain: No polymorphonuclear leukocytes seen. No squamous epithelial cells seen. No organisms seen. Report Final Report: No growth [facility] Bronchoalveolar lavage (Lobe, right upper) 06/12/2025 2:17 PM CDT 06/12/2025 3:26 PM CDT Gordo Corrales MD LAB MICROBIOLOGY - GENE RAL ORDERABLES Final Result Performing Organization Address [facility] Co de Phone Number [facility] [address] [place] [address] * Mycology (fungal) culture Bronchoalveolar lavage Lobe, right upper (06/12/2025 2:17 PM CDT) Pathologist [facility] Report Final Report: No fungus isolated Bronchoalveolar lavage (Lobe, right upper) 06/12/2025 2:17 PM CDT 06/12/2025 3:26 PM CDT Narrative [facility] - 07/11/2025 1:00 PM PARTS CLERK Mycology cultures are held for 4 weeks. Gordo Corrales MD LAB MICROBIOLOGY - GENE RAL ORDERABLES Final Result Performing Organization Address [facility] Co de Phone Number [facility] [address] [place] [address] * Mycobacteriology (AFB) culture and acid-fast stain Bronchoalveolar lavage Lobe, right upper (06/12/2025 2:17 PM CDT) Direct Specimen Exam Stain: Concentrated smear: No Acid Fast Bacillus Seen Report Final Report: No Acid Fast Bacilli isolated [facility] Bronchoalveolar lavage (Lobe, right upper) 06/12/2025 2:17 PM CDT 06/12/2025 3:26 PM CDT Narrative [facility] - 08/08/2025 1:00 PM PARTS CLERK Mycobacteriology (AFB) cultures are held for 8 weeks. Gordo Corrales MD LAB MICROBIOLOGY - GENE RAL ORDERABLES Final Result [facility] [address] Department [place] [address] * XR Chest 1 View (06/12/2025 2:01 [...] AM CDT Narrative 06/15/2025 3:19 PM CDT [address] [address] Tele: Xochilt Rosado MD - Financial Assistance Advisor Note to Patients: This report may contain [...] explain the details. CYTOLOGY REPORT Patient Name: NELI VALENZUELA Address: [address] [place] [address] Gender: F : 1950 (Age: 75) Service: Medical Location: [place] [address] Hospital #: [id number] Patient Type [facility] INPATIENT Taken: 06/12/2025 Reported: 06/15/2025 Physician(s): Gordo [...] highlights abundant macrophages. Clerical Data Follows A; 72691, 73784`, 34094, 41685(2) REPORT IMAGES AND/OR SCANNED DOCUMENTS ONLY VIEWABLE IN PDF FORMAT The immunohistochemical test(s) cited in this report, if any, was developed and its performance characteristics determined by [facility] Pathology Department. It has not been cleared or approved by the U.S. Food and Drug Administration. The FDA has determined that such clearance or approval is not necessary. This test is used for clinical purposes. It should not be regarded as investigational or for research. [facility] Laboratory is certified under the Clinical Laboratory Improvement Amendments of 1988 (CLIA) as qualified to perform high complexity testing. Immunostains were performed on formalin-fixed paraffin embedded tissue using a polymer diaminobenzidine chromogen detection system. Antibodies used may include clone [id number] (mouse monoclonal, estrogen receptor), clone [id number] (mouse monoclonal progesterone receptor), MIB-1 (mouse monoclonal, Ki- 67), and [id number] (rabbit polyclonal, c-kit). In the event that immunohistochemistry or special stains have been performed, attending physician has confirmed appropriateness of controls. Frozen section, operating room consultation, gross examination and dissection, and case sign out may have been performed in part or completely in the following laboratories: [facility], [address] [place] [address], [address] [place] [address]. Gordo Corrales MD LAB CYTOLOGY ORDERABLES Final Result * Surgical pathology (06/12/2025 1:42 PM CDT) Lung Biopsy 06/12/2025 1:42 PM CDT 06/13/2025 8:29 AM CDT Narrative 06/15/2025 10:27 AM CDT [place] [address] Tele: Xochilt Rosado MD - Financial Assistance Advisor Note to Patients: This report may contain [...] PATHOLOGY REPORT Patient Name: NELI VALENZUELA Address: [address] [place] [address] Gender: F : 1950 (Age: 75) Service: Medical Location: [place] [address], Hospital #: [id number] Patient Type: [facility] INPATIENT Taken: 06/12/2025 Received 06/13/2025 Reported: 06/15/2025 Physician(s): Helio Schmidtn Amairani Cochran M.D. DIAGNOSIS: Lung, right upper lobe, biopsy: - Few noncaseating granulomas and multinucleated giant cells rera/06/15/2025 10:27 Examining Pathologist: Josephine Barr M.D. Report [...] filtered and submitted entirely in cassette A1. [facility]/06/13/2025 14:31 , MICROSCOPIC DESCRIPTION: Microscopic evaluation shows scant fragments of lung and bronchial tissue with few noncaseating granulomas and scattered clusters of multinucleated giant cells. Special stains for AFB and GMS are performed and are negative for acid-fast bacilli and fungal organisms, respectively. The staining controls are appropriately reactive. Clerical Data Follows A; 76704, 98508, 82896 REPORT IMAGES AND/OR SCANNED DOCUMENTS ONLY VIEWABLE IN PDF FORMAT The immunohistochemical test(s) cited in this report, if any, was developed and its performance characteristics determined by [facility] Pathology Department. It has not been cleared or approved by the U.S. Food and Drug Administration. The FDA has determined that such clearance or approval is not necessary. This test is used for clinical purposes. It should not be regarded as investigational or for research. [facility] is certified under the Clinical Laboratory [...] part or completely in the following laboratories: [facility], [facility], [address] [place] [address]. Gordo Corrales MD LAB PATHOLOGY ORDERABLE S Final Result * NM AN ELECTIVE ENDOTRACHEAL AIRWAY, NM AN PROCEDURE PLACEHOLDER (06/12/2025 1:20 PM CDT) Narrative Kathy Calle CRNA - 06/12/2025 1:20 PM CDT Kathy Calle CRNA 06/12/2025 1:21 PM Airway Patient location: OR Urgency: elective Indications for airway management: anesthesia Difficult airway: no Staff: Placed by: JET DYEING MACHINE OPERATOR: Kathy Calle CRNA Emergent airway documentation: Risks [...] silk tape Number of attempts: 1 us Julien Devries Aime DO ANESTHESIA ORDERABLES Fi nal Result * POCT glucose (06/12/2025 12:57 PM CDT) Glucose, POC 175 70 - 199 mg/dL Comment: For Glucose values <35 mg/dl when Hematocrit is >60 mg/dl,the test may not accurately detect significant hypoglycemia,and testing in the Laboratory should be considered if clinically indicated. Blood 06/12/2025 12:5 7 PM CDT 06/12/2025 12:57 PM CDT us Nuvia Byrd DO LAB POCT ORDERABLES - DEVICE Final Result [facility] [address] Department [place] [address] * Bronchoscopy (06/12/2025 12:56 PM CDT) Anatomical Region Laterality Modality Other Narrative Procedure Note Gordo Corrales MD - 06/12/2025 12:56 PM CDT Interventional Pulmonology Patient Name: Neli Valenzuela Procedure Date: 06/12/2025 12:56PM Admit Type: Inpatient Room: [facility] IP 1 Date of : 1950 Instrument [...] was given under the supervision of a celery wrapper listed in the electronic medical record. Tc-99m [...] was given under the supervision of a celery wrapper listed in the electronic medical record. Tc-99m [...] Electronically signed by: Atul El M.D. Sadia العراقي [facility] PROCEDURES Fi nal Result * Stress Test for Myocardial Perfusion (06/12/2025 12:29 PM CDT) Anatomical Region Laterality Modality Nuclear Medicine 06/12/2025 9:30 AM CDT Narrative 06/12/2025 12:59 PM CDT [facility] [address] [place] [address] MPI Imaging Report Patient Name: NELI VALENZUELA A : 1950 (75y 3m) Sex: F Study Date: 06/12/2025 09:30:00 AM Ht(Inch): Wt(Lb): BSA: Tech: Location: [address] Order Provider: SADIA GALLO Heart Rate: 125 BMI: Ref Provider: SADIA GALLO PROCEDURES: Pharmacologic SPECT Report.: Stress Test performed [...] BP: 128/75 METS achieved: 1.0 Rate-Pressure Product: 14409 BPM*mmHg Max ST: Supervising Physician: The Supervising [...] stress. Electronically Signed By: Chris Scott MD, [facility] 06/12/2025 12:02:20 PM CDT Procedure Note Chris Scott MD - 06/12/2025 [place] [address] [place] [address] MPI Imaging Report Patient Name: NELI VALENZUELA A : 1950 (75y 3m) Sex: F Study Date: 06/12/2025 09:30:00 AM Ht(Inch): Wt(Lb): BSA: Tech: Location: [id number] Order Provider: SADIA GALLO Heart Rate: 125 BMI: Ref Provider: SADIA GALLO PROCEDURES: Pharmacologic SPECT Report.: Stress Test performed in conjunction withMyocardial perfusion imaging with SPECT at rest and post regadenoson (Lexiscan)infusion. Results of MPI are reported separately. INDICATIONS: Pre-Op Clearance. FINDINGS: Procedure Data: Resting HR 96 bpm Peak HR: 127 bpm Predicted Maximal HR 147 bpm Percent Max Predicted HR Achieved: 86 % Baseline BP: 144/88 Peak BP: 128/75 METS achieved: 1.0 Rate-Pressure Product: 46185 BPM*mmHg Max ST: Supervising Physician: The Supervising [...] stress. Electronically Signed By: Chris Scott MD, FACC 06/12/2025 12:02:20 PM CDT Sadia العراقي CV STRESS PROCEDURES Final Result [...] 6:10 AM CDT 06/12/2025 6:30 AM CDT [facility] LAB BLOOD ORDERABLES Final R esult Performing Organization Address [facility] Co de Phone Number [facility] [address] Department [place] [employer] [place], [place] [phone] * (ABNORMAL) Calcium, ionized (06/12/2025 6:10 AM CDT) Pathologist [facility] Calcium, Ionized 6.72(C) 4.50 - 5.10 mg/dL Comment:Critical result call ed to and read back by Robin Lucero (MARILYN) on 06/12/2025 06:27:30 CDT to [id number]. Blood 06/12/2025 6:10 AM CDT 06/12/2025 6:16 AM CDT [facility] BLOOD ORDERABLES Final R esult Performing Organization Address [facility] de Phone Number [facility] [address] Department [employer], [place] [phone] * (ABNORMAL) 1,25 Dihydroxycholecalciferol (06/12/2025 6:10 AM CDT) Pathologist [facility] 1-25-di-OH Vit D 83(H) 18 - 78 pg/mL [place] [facility] Comment: ADDITIONAL INFORMATION This test was developed and its performance characteristics determined by [facility] in a manner consistent with CLIA requirements. This test has not been cleared or approved by the U.S. Food and Drug Administration. Test Performed by: [facility] - [address] [address] Pitting Machine Operator: Alex Schultz Ph.D.; CLIA# [id number] Blood 06/12/2025 6:10 AM CDT 06/12/2025 6:22 AM CDT Gordo Corrales MD LAB BLOOD ORDERABLES Fi nal Result Performing Organization Address [facility] Co de Phone Number [facility] [address] [place] [address] [facility] ref [facility] * (ABNORMAL) CBC without differential (06/12/2025 6:10 AM CDT) WBC 10.05(H) 3.80 - 9.90 K/cumm Hgb 12.3 11.9 - 15.5 g/dL [facility] Hct 39.6 35.6 - 45.5 % [facility] Plt 306 150 - 400 K/cumm [facility] MPV 11.4 9.1 - 12.3 fL [facility] RBC 4.50 3.90 - 5.20 M/cumm [facility] MCV 88.0 81.3 - 96.4 fL [facility] MCH 27.3 27.1 - 33.3 pg [facility] MCHC 31.1(L) 32.3 - 35.7 g/dL [facility] RDW CV 15.9(H) 11.1 - 14.9 % [facility] RDW SD 50.8(H) 35.7 - 48.1 fL [facility] NRBC abs 0.00 0.00 - 0.01 K/cumm [facility] Blood 06/12/2025 6:10 AM CDT 06/12/2025 8:46 AM CDT Gordo Corrales MD LAB BLOOD ORDERABLES Fi nal Result Performing Organization Address City/[facility]/ZIP Co de Phone Number [facility] [address] [place] [address] * (ABNORMAL) Angiotensin converting enzyme (06/12/2025 6:10 AM CDT) Pathologist [facility] BRAYDEN 87(H) 10 - 55 Units/L Comment:Testing performed by : [facility], [address] [facility], [place]., [address] Blood 06/12/2025 6:10 AM CDT 06/12/2025 11:16 AM CDT Nuvia Byrd DO LAB BLOOD ORDERABLES Final R esult [facility] [address] Department [place] [address] * (ABNORMAL) Comprehensive metabolic panel (06/12/2025 6:10 AM CDT) Pathologist [facility] Sodium 141 135 - 145 mmol/L Potassium, pl 3.8 3.3 - 4.9 mmol/L [facility] Chloride 99 97 - 110 mmol/L [facility] CO2 28 22 - 32 mmol/L [facility] Anion gap 14 2 - 15 mmol/L [facility] BUN 19 6 - 25 mg/dL [facility] Creatinine 0.99 0.60 - 1.10 mg/dL [facility] Glucose 194 70 - 199 mg/dL [facility] Comment: Interpretive Data Fasting glucose >/= 126 [...] 2022. Calcium 13.8(H) 8.5 - 10.3 mg/dL [facility] Bilirubin, total 0.5 0.1 - 1.2 mg/dL [facility] Protein, pl 6.7 6.5 - 8.5 g/dL [facility] Albumin 3.6 3.5 - 5.0 g/dL [facility] Alk phos 285(H) 40 - 130 Units/L [facility] ALT 33 7 - 45 Units/L [facility] AST 41 10 - 45 Units/L [facility] Blood 06/12/2025 6:10 AM CDT 06/12/2025 6:30 AM CDT us Gordo Corrales MD LAB BLOOD ORDERABLES Fi nal Result Performing Organization Address City/[facility]/ZIP Co de Phone Number [facility] [address] Department [place] [address] * Volume and period, urine, 24 hour (06/11/2025 10:11 AM CDT) Volume, ur 2,500 mL Period, Urine Collection 1,440 min [facility] Urine 06/11/2025 10:1 1 AM CDT 06/11/2025 10:30 AM CDT us Nuvia Byrd DO LAB URINE ORDERABLES Final R esult Performing Organization Address City/[facility]/ZIP Co de Phone Number [facility] [address] [place] [address] * (ABNORMAL) Protein electrophoresis, urine, 24 hour (06/11/2025 10:11 AM CDT) Protein, ur, quant 32.6 mg/dL Comment:No reference range e stablished. Albumin, Ur 34.0 % [facility] Comment:No reference range e stablished. Alpha-1 globulin, Ur 34.8 % [facility] Comment:No reference range e stablished. Alpha-2 globulin, Ur 13.8 % [facility] Comment:No reference range e stablished. Beta globulin, Ur 12.1 % [facility] Comment:No reference range e stablished. Gamma globulin, Ur 5.3 % [facility] Comment:No reference range e stablished. UPEP interp See Comment [facility] Comment:UPEP INTERPRETATION: No Monoclonal Protein Detected Protein, 24 hr, ur 815(H) 1 - 150 mg/24H [facility] Urine 06/11/2025 10:1 1 AM CDT 06/11/2025 10:30 AM CDT [facility] LAB URINE ORDERABLES Final R esult [facility] [address] [place] [address] * Immunofixation, urine with interpretation (06/11/2025 10:11 AM CDT) Immunofixation, Ur See Comment Comment:Immunotyping Interpr etation: No Monoclonal Protein Detected Urine 06/11/2025 10:1 1 AM CDT 06/11/2025 10:30 AM [address] [facility] LAB URINE ORDERABLES Final R esult [facility] [address] [place] [address] * Immunoglobulin free light chains (06/11/2025 7:39 AM CDT) [place]/Lambda ratio BJ 1.20 0.26 - 1.65 Comment: Interpretive Data The Binding Site FreeLite assay procedure was used. Results from different manufacturers or methods may not be comparable. Serial testing should be performed using the same methods and instrumentation. Current Interpretive Data was last revised on 2023. Testing performed by: [facility], [address], [place]., [address] [place] free light chain BJH 1.49 0.33 - 1.94 mg/dL [facility] Comment: Interpretive Data The Binding Site FreeLite assay procedure was used. Results from different manufacturers or methods may not be comparable. Serial testing should be performed using the same methods and instrumentation. Current Interpretive Data was last revised on 2023. Testing performed by: [facility], [address] [place]., [address] Lambda free light chain BJ 1.24 0.57 - 2.63 mg/dL [facility] Comment: Interpretive Data The Binding Site FreeLite assay procedure was used. Results from different manufacturers or methods may not be comparable. Serial testing should be performed using the same methods and instrumentation. Current Interpretive Data was last revised on 2023. Testing performed by: [facility], [address] [place]., [address] Blood 06/11/2025 7:39 AM CDT 06/11/2025 11:58 AM CDT us Nuvia Byrd DO LAB BLOOD ORDERABLES Final R esult [facility] [address] Department [place] [address] * eGFR (06/11/2025 5:59 AM CDT) eGFR 68 >=60 mL/min/1. 73 m2 Comment: [...] 06/11/2025 6:14 AM CDT us Nuvia Byrd DO LAB BLOOD ORDERABLES Final R esult [facility] [address] [place] [place] [address] * (ABNORMAL) CBC without differential (06/11/2025 5:59 AM CDT) [facility] WBC 9.40 3.80 - 9.90 K/cumm Hgb 11.7(L) 11.9 - 15.5 g/dL [facility] Hct 37.3 35.6 - 45.5 % [facility] Plt 259 150 - 400 K/cumm [facility] MPV 11.8 9.1 - 12.3 fL [facility] RBC 4.12 3.90 - 5.20 M/cumm [facility] MCV 90.5 81.3 - 96.4 fL [facility] MCH 28.4 27.1 - 33.3 pg [facility] MCHC 31.4(L) 32.3 - 35.7 g/dL [facility] RDW CV 16.1(H) 11.1 - 14.9 % [facility] RDW SD 52.5(H) 35.7 - 48.1 fL [facility] NRBC abs 0.00 0.00 - 0.01 K/cumm [facility] Blood 06/11/2025 5:59 AM CDT 06/11/2025 6:10 AM CDT us Gordo Corrales MD LAB BLOOD ORDERABLES Fi nal Result [facility] [address] [employer] [place] [address] * Phosphorus (06/11/2025 5:59 AM CDT) Pathologist [facility] Phosphorus, pl 3.6 2.3 - 4.5 mg/dL Blood 06/11/2025 5:59 AM CDT 06/11/2025 6:14 AM CDT us Nuvia Wetzel [facility] LAB BLOOD ORDERABLES Final R esult Performing Organization Address City/[facility]/ZIP Co de Phone Number [facility] [address] [place] [address] * Magnesium (06/11/2025 5:59 AM CDT) Pathologist [facility] Magnesium 1.5 1.4 - 2.5 mg/dL Blood 06/11/2025 5:59 AM CDT 06/11/2025 6:14 AM CDT us Nuvia Wetzel [facility] LAB BLOOD ORDERABLES Final R esult Performing Organization Address [facility] Co de Phone Number [facility] [address] [facility] [place] [address] * (ABNORMAL) Comprehensive metabolic panel (06/11/2025 5:59 AM CDT) Pathologist [facility] Sodium 141 135 - 145 mmol/L Potassium, pl 3.7 3.3 - 4.9 mmol/L [facility] Comment:Hemolyzed; potassium value may be falsely elevated by as much as 0.3 - 0.5 mmol/L. Suggest redraw and reanalysis Chloride 101 97 - 110 mmol/L [facility] CO2 29 22 - 32 mmol/L [facility] Anion gap 11 2 - 15 mmol/L [facility] BUN 14 6 - 25 mg/dL [facility] Creatinine 0.89 0.60 - 1.10 mg/dL [facility] Glucose 125 70 - 199 mg/dL [facility] Comment: Interpretive Data Fasting glucose >/= 126 [...] 2022. Calcium 12.4(H) 8.5 - 10.3 mg/dL [facility] Bilirubin, total 0.7 0.1 - 1.2 mg/dL [facility] Protein, pl 6.1(L) 6.5 - 8.5 g/dL [facility] Albumin 3.2(L) 3.5 - 5.0 g/dL [facility] Alk phos 252(H) 40 - 130 Units/L [facility] ALT 20 7 - 45 Units/L [facility] AST 34 10 - 45 Units/L [facility] Comment:Slightly Hemolyzed S pecimen Blood 06/11/2025 5:59 AM CDT 06/11/2025 6:14 AM CDT Gordo Corrales MD LAB BLOOD ORDERABLES Fi nal Result [facility] [address] Department [place] [address] * eGFR (06/10/2025 10:27 PM CDT) eGFR [...] Falk MD LAB BLOOD ORDERABLES Final Result Performing Organization Address [facility] Co de Phone Number [facility] [address] Department of [employer] [place], [place] [id number] * (ABNORMAL) Calcium, ionized (06/10/2025 10:27 PM CDT) Calcium, Ionized 6.11(H) 4.50 - 5.10 mg/dL Blood 06/10/2025 10:2 7 PM CDT 06/10/2025 10:46 PM CDT Nuvia Byrd DO LAB BLOOD ORDERABLES Final R esult Performing Organization Address [facility] Co de Phone Number [facility] [address] [place] [address] * Magnesium (06/10/2025 10:27 PM CDT) Magnesium 1.6 1.4 - 2.5 mg/dL Blood 06/10/2025 10:2 7 PM CDT 06/10/2025 10:53 PM CDT Pricila [place] MD LAB BLOOD ORDERABLES Final Result Performing Organization Address [facility] Co de Phone Number [facility] [address] Department [place], [place] [id number] * (ABNORMAL) Basic metabolic panel (06/10/2025 10:27 PM CDT) Sodium 142 135 - 145 mmol/L Potassium, pl 3.7 3.3 - 4.9 mmol/L [facility] Comment:Hemolyzed; potassium value may be falsely elevated by as much as 0.6 - 1.0 mmol/L. Suggest redraw and reanalysis Chloride 102 97 - 110 mmol/L [facility] CO2 30 22 - 32 mmol/L [facility] Anion gap 10 2 - 15 mmol/L [facility] BUN 14 6 - 25 mg/dL [facility] Creatinine 0.84 0.60 - 1.10 mg/dL [facility] Glucose 129 70 - 199 mg/dL [facility] Comment: Interpretive Data Fasting glucose >/= 126 [...] 2022. Calcium 12.5(H) 8.5 - 10.3 mg/dL [facility] Blood 06/10/2025 10:2 7 PM CDT 06/10/2025 10:53 PM CDT us Pricila [place] MD LAB BLOOD ORDERABLES Final Result [facility] [address] Department [place] [address] * ECG 12 lead (06/10/2025 9:42 PM CDT) 06/10/2025 9:42 PM CDT Narrative [facility] - 06/11/2025 7:35 PM CDT Vent Rate: 109 bpm RR Interval: 550 msec NM Interval: 0 msec QRS Duration: 128 msec QT Interval: 349 msec QTC Interval: 413 msec P-R-T [place]: 0 - -56 - 24 degrees IMPRESSION: SINUS TACHYCARDIA WITH FREQIENT PACS RIGHT BUNDLE BRANCH BLOCK LEFT ANTERIOR FASCICULAR BLOCK ABNORMAL ECG Electronically Signed By: Fernandez Vyas [facility] Card us Festus العراقي ECG ORDERABLES Final [facility] * CT Chest Abdomen Pelvis W Contrast [...] indicated. Electronically signed by: Joe George M.D. uNvia Byrd DO IMG CT PROCEDURES Final Resu lt * Immunotyping, serum with interpretation (06/10/2025 4:50 AM CDT) Immunosubtraction See Comment Comment:Immunotyping Interpr etation: No Monoclonal Protein detected Blood 06/10/2025 4:50 AM CDT 06/10/2025 4:58 AM CDT Narrative [facility] - 06/12/2025 1:24 PM CDT Reflex Immunotyping, Ser Nuvia Byrd DO LAB BLOOD ORDERABLES Final R esult [facility] [address] [place] [address] * eGFR (06/10/2025 4:50 AM CDT) eGFR [...] 4:50 AM CDT 06/10/2025 4:59 AM CDT [facility] LAB BLOOD ORDERABLES Final R esult Performing Organization Address City/[facility]/ZIP Co de Phone Number [facility] [address] [place] [address] * (ABNORMAL) Protein electrophoresis with reflex, serum with interpretation (06/10/2025 4:50 AM CDT) Protein, sr 5.7(L) 6.2 - 8.2 g/dL Albumin 3.0(L) 3.2 - 5.0 g/dL [facility] Alpha-1 globulin 0.4 0.2 - 0.4 g/dL [facility] Alpha-2 globulin 1.0 0.5 - 1.0 g/dL [facility] Beta-1 globulin 0.4 0.3 - 0.6 g/dL [facility] Beta-2 globulin 0.4 0.2 - 0.6 g/dL [facility] Gamma globulin 0.5 0.5 - 1.7 g/dL [facility] SPEP interp See Comment [facility] Comment:SPEP INTERPRETATION: No apparent monoclonal peak. Decreased Gamma Globulins. Immunotyping See Immunotyping Results [facility] Blood 06/10/2025 4:50 AM CDT 06/10/2025 4:58 AM CDT Nuviashruthi Wetzel [facility] LAB BLOOD ORDERABLES Final R esult [facility] [address] [place] [address] * (ABNORMAL) Renal function panel (06/10/2025 4:50 AM CDT) [facility] Sodium 143 135 - 145 mmol/L Potassium, pl 3.4 3.3 - 4.9 mmol/L [facility] Chloride 103 97 - 110 mmol/L [facility] CO2 29 22 - 32 mmol/L [facility] Anion gap 11 2 - 15 mmol/L [facility] BUN 14 6 - 25 mg/dL [facility] Creatinine 0.88 0.60 - 1.10 mg/dL [facility] Glucose 149 70 - 199 mg/dL [facility] Comment: Interpretive Data Fasting glucose >/= 126 [...] 2022. Calcium 12.4(H) 8.5 - 10.3 mg/dL [facility] Phosphorus, pl 3.2 2.3 - 4.5 mg/dL [facility] Albumin 3.5 3.5 - 5.0 g/dL [facility] Blood 06/10/2025 4:50 AM CDT 06/10/2025 4:59 AM CDT us Nuvia Byrd DO LAB BLOOD ORDERABLES Final R esult [facility] [address] [place] [address] * eGFR (06/09/2025 11:24 AM CDT) [facility] eGFR 70 >=60 mL/min/1. 73 m2 Comment: [...] CDT 06/09/2025 11:33 AM CDT us Nuvia Byrd LAB BLOOD ORDERABLES Final R esult [facility] [address] [place] [address] * (ABNORMAL) Basic metabolic panel (06/09/2025 11:24 AM CDT) Sodium 140 135 - 145 mmol/L Potassium, pl 3.5 3.3 - 4.9 mmol/L [facility] Chloride 99 97 - 110 mmol/L [facility] CO2 28 22 - 32 mmol/L [facility] Anion gap 13 2 - 15 mmol/L [facility] BUN 16 6 - 25 mg/dL [facility] Creatinine 0.87 0.60 - 1.10 mg/dL [facility] Glucose 145 70 - 199 mg/dL [facility] Comment: Interpretive Data Fasting glucose >/= 126 [...] 2022. Calcium 11.7(H) 8.5 - 10.3 mg/dL [facility] Blood 06/09/2025 11:2 4 AM CDT 06/09/2025 11:33 AM CDT us Nuvia Byrd DO LAB BLOOD ORDERABLES Final R esult [facility] [address] [place] [address] * TRANSTHORACIC ECHO (TTE) COMPLETE W DOPPLER/CF W CONTRAST (06/08/2025 5:43 PM CDT) Estimated EF 45-50 % CONS SCIMAGE Anatomical Region Laterality Modality Ultrasound 06/08/2025 4:18 PM CDT Narrative 06/08/2025 9:52 PM CDT [facility] [address] [place] [address] ECHOCARDIOGRAM Patient Name: NELI VALENZUELA : 1950 (75y 3m) Sex: F Study Date: 06/08/2025 04:18:36 PM Ht(Inch): 60 Wt(Lb): 153.88 BSA: 1.72 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 Mild mitral valve regurgitation. [...] Chawla MD PhD 06/08/2025 9:51:35 PM CDT us Mya Bryant NP CV ECHO PROCEDUR ES Final Result * Conditional use lavender-top tube on ice (06/08/2025 4:26 PM CDT) Pathologist [facility] Conditional lavender-top tube Complete Blood 06/08/2025 4:26 PM CDT 06/08/2025 5:13 PM CDT us Nuvia Byrd DO LAB BLOOD ORDERABLES Final R esult [facility] [address] [place] [address] * Conditional use lavender-top tube on ice (06/08/2025 4:26 PM CDT) Conditional lavender-top tube Complete Blood 06/08/2025 4:26 PM CDT 06/08/2025 5:13 PM CDT Joe Corcoran DO LAB BLOOD ORDERABLES Tawnya l Result [facility] [address] Department [employer], [place] [id number] * (ABNORMAL) PTH with reflex to PTHrP (hypercalcemia reflex) (06/08/2025 4:26 PM CDT) PTH 6.5(L) 18.0 - 59.0 pg/mL Blood 06/08/2025 4:26 PM CDT 06/08/2025 4:48 PM CDT Joe Corcoran LAB BLOOD ORDERABLES Tawnya l Result Performing Organization Address [facility] Co de Phone Number [facility] [address] Department of [employer] [place], [place] [id number] * (ABNORMAL) BLOOD MISC TO VILLARD (06/08/2025 4:26 PM CDT) Test name, chem DHVD 1,25-Dihy droxyvita min D, Serum [place] ref Lab Misc See Footnote( A) [facility] Comment: Test Result Flag Unit RefValue 1,25-Dihydroxyvitamin D, S 85 H pg/mL 1878 ADDITIONAL INFORMATION This test was developed and its performance characteristics determined by [facility] in a manner consistent with CLIA requirements. This test has not been cleared or approved by the U.S. Food and Drug Administration. Test Performed by: [facility] - [address] [address] Pitting Machine Operator: Alex Schultz Ph.D.; CLIA# [id number] Blood 06/08/2025 4:26 PM CDT 06/08/2025 8:33 PM CDT Narrative [facility] - 06/13/2025 2:24 PM CDT DHVD 1,25-Dihydroxyvitamin D, Serum Joe Corcoran LAB BLOOD ORDERABLES Tawnya l Result Performing Organization Address [facility] Co de Phone Number [facility] [address] [employer] [place] [address] [place] ref Lab * PTH-related peptide (06/08/2025 4:26 PM CDT) [facility] PTH Related Protein <0.5 < or = 4.2 pmol/L [facility] Comment: ADDITIONAL INFORMATION This test was developed and its performance characteristics determined by [facility] in a manner consistent with CLIA requirements. This test has not been cleared or approved by the U.S. Food and Drug Administration. Test Performed by: [place] [address] Pitting Machine Operator: Alex Schultz Ph.D.; CLIA# [id number] Blood 06/08/2025 4:26 PM CDT 06/08/2025 5:13 PM CDT Narrative [facility] - 06/14/2025 1:46 PM CDT This test was reflexed from a PTH Intact result. Joe Olivierbladimir LAB BLOOD ORDERABLES Tawnya l Result Performing Organization Address [facility] Co de Phone Number [facility] [address] [employer] [place] [address] [facility] * Vitamin D 25 hydroxy (06/08/2025 4:26 PM CDT) Vitamin D 25-OH 66 30 - 80 ng/mL Blood 06/08/2025 4:26 PM CDT 06/08/2025 4:48 PM CDT Joe Corcoran DO LAB BLOOD ORDERABLES Tawnya guajardo Result [facility] [address] Department [place] [address] * US Liver (06/08/2025 9:48 AM CDT) [...] signed by: Atul El M.D. Mya Bryant [address] PATROL COMMANDER IMG US PROCEDURE S Final Result * [...] Aguilar MD LAB BLOOD ORDERABLES Final Result [facility] [address] [place] [address] * (ABNORMAL) Differential, auto (06/08/2025 5:26 AM CDT) Pathologist [facility] Neutrophil abs 6.77(H) 1.50 - 6.50 K/cumm Imm gran abs 0.06 0.00 - 0.10 K/cumm [facility] Lymphocyte abs 1.17 0.80 - 3.30 K/cumm [facility] Monocyte abs 1.28(H) 0.20 - 0.80 K/cumm [facility] Eosinophil abs 0.42 0.00 - 0.50 K/cumm [facility] Basophil abs 0.10 0.00 - 0.10 K/cumm [facility] Neutrophil pct 69.1 % [facility] Comment: Interpretive Data Percent cell count reference ranges are not reported, since discordance with absolute values may lead to misinterpretation of CBC data. Current Interpretive Data was last revised on 2017. Imm gran pct 0.6 % [facility] Comment: Interpretive Data Percent cell count reference ranges are not reported, since discordance with absolute values may lead to misinterpretation of CBC data. Current Interpretive Data was last revised on 2017. Lymphocyte pct 11.9 % [facility] Comment: Interpretive Data Percent cell count reference ranges are not reported, since discordance with absolute values may lead to misinterpretation of CBC data. Current Interpretive Data was last revised on 2017. Monocyte pct 13.1 % [facility] Comment: Interpretive Data Percent cell count reference ranges are not reported, since discordance with absolute values may lead to misinterpretation of CBC data. Current Interpretive Data was last revised on 2017. Eosinophil pct 4.3 % [facility] Comment: Interpretive Data Percent cell count reference ranges are not reported, since discordance with absolute values may lead to misinterpretation of CBC data. Current Interpretive Data was last revised on 2017. Basophil pct 1.0 % [facility] Comment: Interpretive Data Percent cell count reference ranges are not reported, since discordance with absolute values may lead to misinterpretation of CBC data. Current Interpretive Data was last revised on 2017. Blood 06/08/2025 5:26 AM CDT 06/08/2025 5:36 AM CDT Ananda Aguilar MD LAB BLOOD ORDERABLES Final Result [facility] [address] [place] [address] * (ABNORMAL) Calcium, ionized (06/08/2025 5:26 AM CDT) Calcium, Ionized 5.38(H) 4.50 - 5.10 mg/dL Blood 06/08/2025 5:26 AM CDT 06/08/2025 5:32 AM CDT Mya Bryant NP LAB BLOOD ORDERA BLES Final Result Performing Organization Address City/[facility]/ZIP Co de Phone Number [facility] [address] [place] [employer] [place] [address] * (ABNORMAL) CBC with auto differential (06/08/2025 5:26 AM CDT) [facility] WBC 9.80 3.80 - 9.90 K/cumm Hgb 12.1 11.9 - 15.5 g/dL [facility] Hct 37.8 35.6 - 45.5 % [facility] Plt 279 150 - 400 K/cumm [facility] MPV 11.6 9.1 - 12.3 fL [facility] RBC 4.40 3.90 - 5.20 M/cumm [facility] MCV 85.9 81.3 - 96.4 fL [facility] MCH 27.5 27.1 - 33.3 pg [facility] MCHC 32.0(L) 32.3 - 35.7 g/dL [facility] RDW CV 15.9(H) 11.1 - 14.9 % [facility] RDW SD 49.3(H) 35.7 - 48.1 fL [facility] NRBC abs 0.00 0.00 - 0.01 K/cumm [facility] Blood 06/08/2025 5:26 AM CDT 06/08/2025 5:36 AM CDT us Ananda Aguilar MD LAB BLOOD ORDERABLES Final Result [facility] [address] [place] [address] * (ABNORMAL) Hemoglobin A1c (06/08/2025 5:26 AM CDT) Pathologist [facility] Hgb A1C 6.2(H) 4.0 - 5.6 % Estimated Average Glucose 131 mg/dL [facility] Comment: The ADA recommends reporting an estimated Average Glucose (eAG) with all Hemoglobin A1c results using the equation derived from a study of 507 normal and diabetic adults. Minority populations were underrepresented and children were not included. (Diabetes Care 31:1467-7380, 2008). The eAG is not equivalent to a fasting glucose. Blood 06/08/2025 5:26 AM CDT 06/08/2025 5:36 AM CDT yMa Bryant NP LAB BLOOD ORDERA BLES Final Result Performing Organization Address [facility] Co de Phone Number [facility] [address] [place] [employer] [place] [address] * (ABNORMAL) Hepatic function panel (06/08/2025 5:26 AM CDT) Bilirubin, total 0.5 0.1 - 1.2 mg/dL Bilirubin, direct 0.3 0.1 - 0.3 mg/dL [facility] Protein, pl 6.6 6.5 - 8.5 g/dL [facility] Albumin 3.5 3.5 - 5.0 g/dL [facility] Alk phos 251(H) 40 - 130 Units/L [facility] ALT 16 7 - 45 Units/L [facility] AST 23 10 - 45 Units/L [facility] Blood 06/08/2025 5:26 AM CDT 06/08/2025 5:36 AM CDT Mya Bryant NP LAB BLOOD ORDERA BLES Final Result Performing Organization Address [facility] Co de Phone Number [facility] [address] [facility] [employer] [place], [place] [id number] * (ABNORMAL) Basic metabolic panel (06/08/2025 5:26 AM CDT) Sodium 139 135 - 145 mmol/L Potassium, pl 3.0(L) 3.3 - 4.9 mmol/L [facility] Chloride 97 97 - 110 mmol/L [facility] CO2 30 22 - 32 mmol/L [facility] Anion gap 12 2 - 15 mmol/L [facility] BUN 17 6 - 25 mg/dL [facility] Creatinine 0.96 0.60 - 1.10 mg/dL [facility] Glucose 85 70 - 199 mg/dL [facility] Comment: Interpretive Data Fasting glucose >/= 126 [...] 2022. Calcium 11.9(H) 8.5 - 10.3 mg/dL [facility] Blood 06/08/2025 5:26 AM CDT 06/08/2025 5:36 AM CDT us Ananda Aguilar MD LAB BLOOD ORDERABLES Final Result [facility] [address] [employer] [place], [place] [id number] * CK - Add on lab test (06/07/2025 6:20 PM CDT) Acceptable Yes Blood 06/07/2025 6:20 PM CDT 06/07/2025 6:20 PM CDT Narrative [facility] - 06/07/2025 6:20 PM CDT Name of Test->CK Mya Bryant NP LAB BLOOD ORDERA BLES Final Result [facility] [address] [place] [address] * (ABNORMAL) Calcium, ionized (06/07/2025 6:04 PM CDT) Calcium, Ionized 5.91(H) 4.50 - 5.10 mg/dL Blood 06/07/2025 6:04 PM CDT 06/07/2025 6:17 PM CDT us Myaharriet Bryant NP LAB BLOOD ORDERA BLES Final Result Performing Organization Address City/[facility]/ZIP Co de Phone Number [facility] [address] [facility] [place] [address] * (ABNORMAL) PTH (06/07/2025 6:04 PM CDT) Pathologist [facility] PTH <6.0(L) 18.0 - 59.0 pg/mL Blood 06/07/2025 6:04 PM CDT 06/07/2025 6:19 PM CDT us Mya Bryant NP LAB BLOOD ORDERA BLES Final Result Performing Organization Address [facility] de Phone Number [facility] [address] [facility] [place] [address] * Vitamin D 25 hydroxy - Add on lab test (06/07/2025 3:12 PM CDT) Pathologist [facility] Acceptable Yes Blood 06/07/2025 3:12 PM CDT 06/07/2025 3:12 PM CDT Narrative [facility] - 06/07/2025 3:12 PM CDT Name of Test->Vitamin D 25 hydroxy Mya Stephanie Bryant NP LAB BLOOD ORDERA BLES Final Result Performing Organization Address City/[facility] Co de Phone Number [facility] [address] [facility] [place] [address] * Magnesium - Add on lab test (06/07/2025 3:06 PM CDT) Acceptable Yes Blood 06/07/2025 3:06 PM CDT 06/07/2025 3:06 PM CDT Narrative [facility] - 06/07/2025 3:07 PM CDT Name of Test->Magnesium us Myaharriet Bryant [address] [employer] LAB BLOOD ORDERA BLES Final Result Performing Organization Address City/[facility]/ZIP Co de Phone Number [facility] [address] [facility] [place] [address] * NT-Pro BNP - Add on lab test (06/07/2025 3:06 PM CDT) Acceptable Yes Blood 06/07/2025 3:06 PM CDT 06/07/2025 3:06 PM CDT Lenka SMITH [facility] - 06/07/2025 3:07 PM CDT Name of Test->NT-Pro BNP us Myaharriet Bryant [address] [employer] LAB BLOOD ORDERA BLES Final Result Performing Organization Address [facility] Co de Phone Number [facility] [address] [facility] [place] [address] * Procalcitonin - Add on lab test (06/07/2025 3:06 PM CDT) Acceptable Yes Blood 06/07/2025 3:06 PM CDT 06/07/2025 3:06 PM CDT Len[facility] - 06/07/2025 3:07 PM CDT Name of Test->Procalcitonin us Mya Bryant NP LAB BLOOD ORDERA BLES Final Result Performing Organization Address City/[facility]/ZIP Co de Phone Number [facility] [address] [facility] [place] [address] * TSH reflex Free T4 - Add on lab test (06/07/2025 3:06 PM CDT) Acceptable Yes Blood 06/07/2025 3:06 PM CDT 06/07/2025 3:06 PM CDT Narrative [facility] - 06/07/2025 3:07 PM CDT Name of Test->TSH reflex Free T4 us Mya Bryant NP LAB BLOOD ORDERA BLES Final Result [facility] [address] [place] [address] * XR Chest Pa Lateral 2 Views [...] hardware. Electronically signed by: Eugenio Quintana MD Abdirahman Childs DO IMG XR PROCEDURES Final Resu lt * (ABNORMAL) Urinalysis reflex to microscopic and culture Urine (06/07/2025 11:17 AM CDT) Color, ur Straw Yellow Clarity, ur Clear Clear [facility] Specific gravity, ur 1.009 1.003 - 1.030 [facility] pH, urine 6.5 [facility] Comment: Interpretive Data U rine pH is affected by diet, medications, systemic acid-base disturbances, and renal tubular function. pH may affect urinary stone formation. For example, urine pH below 6.0 may help reduce the tendency for calcium phosphate stones and pH greater than 6.0 may reduce the tendency for uric acid stone formation. Source: [facility] Current Interpretive Data was last revised on 2017 Protein, ur ql Negative Negative [facility] Glucose, ur ql Negative Negative [facility] Ketones, ur Negative Negative [facility] Bilirubin, ur Negative Negative [facility] Blood, ur Negative Negative [facility] Urobilinogen, ur <2.0 <2.0 mg/dL [facility] Nitrite, ur Negative Negative [facility] Leukocyte esterase, ur 2+(A) Negative [facility] UA reflex comment Reflex to microscopic UA will be performed. [facility] Urine 06/07/2025 11:1 7 AM CDT 06/07/2025 11:18 AM CDT Abdirahman Childs DO LAB MICROBIOLOGY - GENERAL O RDERABLES Final Result [facility] [address] [place] [address] * (ABNORMAL) Urinalysis, microscopic only (06/07/2025 11:17 AM CDT) WBC, ur 0-5 0 - 5 /HPF RBC, ur 0-2 0 - 2 /HPF [facility] Bacteria, ur 1+(A) [facility] Mucous, ur Present(A) [facility] Hyaline casts, ur 1-5 0 - 10 /LPF [facility] Culture Reflex Comment Reflex conditions for urine culture (WBC >10) not met. [facility] Urine 06/07/2025 11:1 7 AM CDT 06/07/2025 11:29 AM CDT Abdirahman Childs DO LAB URINE ORDERABLES Final R esult Performing Organization Address [facility] Co de Phone Number [facility] [address] [employer] [place] [address] * (ABNORMAL) Troponin T high-sensitivity 2-hour (06/07/2025 11:03 AM CDT) Pathologist [facility] Trop T hs 21(H) <=14 ng/L Comment: Interpretive Data For further hscTnT resources including the diagnostic algorithm and an aid in interpretation, copy and paste this link: [email or web address].testcatalog.org/show/[email or web address] Current Interpretive Data last revised 2020. Trop T hs delta -2 ng/L [facility] Trop T hs interp Insignificant [facility] Blood 06/07/2025 11:0 3 AM CDT 06/07/2025 11:12 AM CDT us Abdirahman Childs DO LAB BLOOD ORDERABLES Final R esult Performing Organization Address City/[facility]/ZIP Co de Phone Number [facility] [address] [place] [employer] [place] [address] * Procalcitonin (06/07/2025 11:03 AM CDT) Procalcitonin 0.13 <=0.25 ng/mL Blood 06/07/2025 11:0 3 AM CDT 06/07/2025 11:12 AM CDT Darius Gonzalez MD LAB BLOOD ORDERABLES Final Resul t [facility] [address] [place] [address] * (ABNORMAL) Pro B-type natriuretic peptide (06/07/2025 11:03 AM CDT) NT-proBNP 1,101(H) <=300 pg/mL Comment: Interpretive Comments: [...] Heart J. 2006:27:330-337. 2. Fahad RW, [place] CH[employer]BERS. J. AM Chadwick Cardiol: Cardiovasc Imag. 2009;2: 216- 225. Interpretive Data Last Revised Date: 2018. Blood 06/07/2025 11:0 3 AM CDT 06/07/2025 11:12 AM CDT Darius Gonzalez MD LAB BLOOD ORDERABLES Final Resul t [facility] [address] [facility] [place] [address] * Thyroid Function [place] (06/07/2025 11:03 AM CDT) [facility] TSH 1.16 0.30 - 4.20 mcIUnit/mL Blood 06/07/2025 11:0 3 AM CDT 06/07/2025 11:12 AM CDT Darius Gonzalez MD LAB BLOOD ORDERABLES Final Resul t Performing Organization Address City/[facility] Co de Phone Number [facility] [address] [place] [address] * Respiratory pathogen panel Nasopharyngeal (06/07/2025 11:03 AM CDT) [facility] Influenza A RNA Not Detected Not Detected [facility] Influenza B RNA Not Detected Not Detected [facility] RSV RNA Not Detected Not Detected [facility] COVID-19 RNA Not Detected Not Detected [facility] Coronavirus 229E RNA Not Detected Not Detected [facility] Coronavirus HKU1 RNA Not Detected Not Detected [facility] Coronavirus NL63 RNA Not Detected Not Detected [facility] Coronavirus OC43 RNA Not Detected Not Detected [facility] Adenovirus DNA Not Detected Not Detected [facility] Metapneumovirus RNA Not Detected Not Detected [facility] Rhinovirus/Enterov irus RNA Not Detected Not Detected [facility] Parainfluenza 1 RNA Not Detected Not Detected [facility] Parainfluenza 2 RNA Not Detected Not Detected [facility] Parainfluenza 3 RNA Not Detected Not Detected [facility] Parainfluenza 4 RNA Not Detected Not Detected [facility] B. pertussis DNA Not Detected Not Detected [facility] B. parapertussis DNA Not Detected Not Detected [facility] C. pneumoniae DNA Not Detected Not Detected [facility] M. pneumoniae DNA Not Detected Not Detected [facility] Comment: Interpretive Data The [employer] FilmArray Respiratory Panel (RP2.1) assay is a [...] assay has FDA clearance for testing of [address] [employer] swabs. The performance characteristics of this assay have been determined by [facility]. Current interpretive data was last revised on 2021. Nasopharyngeal 06/07/2025 11 :03 AM CDT 06/07/2025 11:21 AM CDT Narrative [facility] - 06/07/2025 12:18 PM CDT Is the Patient experiencing symptoms consistent with COVID?->Yes Surveillance testing for transplant patient?->No Abdirahman Childs DO LAB MICROBIOLOGY - GENERAL O RDERABLES Final Result Performing Organization Address [facility] Co de Phone Number [facility] [address] [place] [address] MBC * Vitamin D 25 hydroxy (06/07/2025 11:03 AM CDT) Pathologist [facility] Vitamin D 25-OH 54 30 - 80 ng/mL Blood 06/07/2025 11:0 3 AM CDT 06/07/2025 11:12 AM CDT Darius Gonzalez MD LAB BLOOD ORDERABLES Final Resul t Performing Organization Address [facility] de Phone Number [facility] [address] [place] [address] * Magnesium (06/07/2025 11:03 AM CDT) Pathologist [facility] Magnesium 1.7 1.4 - 2.5 mg/dL Blood 06/07/2025 11:0 3 AM CDT 06/07/2025 11:12 AM CDT Darius Gonzalez MD LAB BLOOD ORDERABLES Final Resul t Performing Organization Address [facility] Co de Phone Number [facility] [address] [place] [address] * Creatine kinase (CK), total (06/07/2025 11:03 AM CDT) Pathologist [facility] CK 33 30 - 200 Units/L Blood 06/07/2025 11:0 3 AM CDT 06/07/2025 11:12 AM CDT Darius Gonzalez MD LAB BLOOD ORDERABLES Final Resul t Performing Organization Address [facility] Co de Phone Number [facility] [address] [place] [address] * Troponin T HS (series) - Add on lab test (06/07/2025 10:39 AM CDT) Acceptable Yes Blood 06/07/2025 10:3 9 AM CDT 06/07/2025 10:39 AM CDT Narrative [facility] - 06/07/2025 10:39 AM CDT Name of Test->Troponin T HS (series) Abdirahman Childs DO LAB BLOOD ORDERABLES Final R esult Performing Organization Address [facility] Co de Phone Number [facility] [address] Department [employer] [place], [place] [id number] * Sepsis Lactate w/ Reflex (06/07/2025 9:50 AM CDT) Pathologist [facility] Sepsis Lactate 1.4 0.7 - 2.0 mmol/L Blood 06/07/2025 9:50 AM CDT 06/07/2025 9:55 AM CDT Abdirahman Childs DO LAB BLOOD ORDERABLES Final R esult Performing Organization Address [facility] Co de Phone Number [facility] [address] Department [employer] [place], [place] [phone] * (ABNORMAL) Troponin T high-sensitivity series (baseline, [...] ORDERABLES Final R esult Performing Organization Address [facility] Co de Phone Number [facility] [address] Department [place] [employer] [place], [place] [id number] * (ABNORMAL) eGFR (06/07/2025 9:23 AM CDT) [...] ORDERABLES Final R esult Performing Organization Address City/[facility]/ZIP Co de Phone Number [facility] [address] Department [employer] [place], [place] [id number] * (ABNORMAL) Differential, auto (06/07/2025 9:23 AM CDT) Neutrophil abs 8.55(H) 1.50 - 6.50 K/cumm Imm gran abs 0.05 0.00 - 0.10 K/cumm [facility] Lymphocyte abs 1.17 0.80 - 3.30 K/cumm [facility] Monocyte abs 1.48(H) 0.20 - 0.80 K/cumm [facility] Eosinophil abs 0.44 0.00 - 0.50 K/cumm [facility] Basophil abs 0.12(H) 0.00 - 0.10 K/cumm [facility] Neutrophil pct 72.5 % [facility] Comment: Interpretive Data Percent cell count reference ranges are not reported, since discordance with absolute values may lead to misinterpretation of CBC data. Current Interpretive Data was last revised on 2017. Imm gran pct 0.4 % [facility] Comment: Interpretive Data Percent cell count reference ranges are not reported, since discordance with absolute values may lead to misinterpretation of CBC data. Current Interpretive Data was last revised on 2017. Lymphocyte pct 9.9 % [facility] Comment: Interpretive Data Percent cell count reference ranges are not reported, since discordance with absolute values may lead to misinterpretation of CBC data. Current Interpretive Data was last revised on 2017. Monocyte pct 12.5 % [facility] Comment: Interpretive Data Percent cell count reference ranges are not reported, since discordance with absolute values may lead to misinterpretation of CBC data. Current Interpretive Data was last revised on 2017. Eosinophil pct 3.7 % [facility] Comment: Interpretive Data Percent cell count reference ranges are not reported, since discordance with absolute values may lead to misinterpretation of CBC data. Current Interpretive Data was last revised on 2017. Basophil pct 1.0 % [facility] Comment: Interpretive Data Percent cell count reference ranges are not reported, since discordance with absolute values may lead to misinterpretation of CBC data. Current Interpretive Data was last revised on 2017. Blood 06/07/2025 9:23 AM CDT 06/07/2025 9:33 AM CDT us Baljinder Monreal MD LAB BLOOD ORDERABLES Final R esult [facility] [address] [place] [address] * (ABNORMAL) CBC with auto differential (06/07/2025 9:23 AM CDT) [facility] WBC 11.81(H) 3.80 - 9.90 K/cumm Hgb 12.2 11.9 - 15.5 g/dL [facility] Hct 38.6 35.6 - 45.5 % [facility] Plt 327 150 - 400 K/cumm [facility] MPV 11.7 9.1 - 12.3 fL [facility] RBC 4.34 3.90 - 5.20 M/cumm [facility] MCV 88.9 81.3 - 96.4 fL [facility] MCH 28.1 27.1 - 33.3 pg [facility] MCHC 31.6(L) 32.3 - 35.7 g/dL [facility] RDW CV 15.8(H) 11.1 - 14.9 % [facility] RDW SD 50.9(H) 35.7 - 48.1 fL [facility] NRBC abs 0.00 0.00 - 0.01 K/cumm [facility] Blood 06/07/2025 9:23 AM CDT 06/07/2025 9:33 AM CDT Abdirahman Childs DO LAB BLOOD ORDERABLES Final R esult [facility] [address] [place] [address] * (ABNORMAL) Comprehensive metabolic panel (06/07/2025 9:23 AM CDT) [facility] Sodium 140 135 - 145 mmol/L Potassium, pl 3.3 3.3 - 4.9 mmol/L [facility] Chloride 96(L) 97 - 110 mmol/L [facility] CO2 31 22 - 32 mmol/L [facility] Anion gap 13 2 - 15 mmol/L [facility] BUN 20 6 - 25 mg/dL [facility] Creatinine 1.12(H) 0.60 - 1.10 mg/dL [facility] Glucose 116 70 - 199 mg/dL [facility] Comment: Interpretive Data Fasting glucose >/= 126 [...] 2022. Calcium 12.2(H) 8.5 - 10.3 mg/dL [facility] Bilirubin, total 0.5 0.1 - 1.2 mg/dL [facility] Protein, pl 6.4(L) 6.5 - 8.5 g/dL [facility] Albumin 3.6 3.5 - 5.0 g/dL [facility] Alk phos 266(H) 40 - 130 Units/L [facility] ALT 17 7 - 45 Units/L [facility] AST 27 10 - 45 Units/L [facility] Comment:Slightly Hemolyzed S pecimen Blood 06/07/2025 9:23 AM CDT 06/07/2025 9:32 AM CDT us Abdirahman Childs DO LAB BLOOD ORDERABLES Final R esult [facility] [address] [place] [address] * ECG 12 lead (06/07/2025 9:20 AM CDT) 06/07/2025 9:20 AM CDT Narrative [facility] - 06/07/2025 11:29 AM CDT Vent Rate: 111 bpm RR Interval: 538 msec NM Interval: 0 msec QRS Duration: 133 msec QT Interval: 381 msec QTC Interval: 447 msec P-R-T [place]: 0 - -66 - 25 degrees IMPRESSION: ATRIAL FIBRILLATION WITH RAPID VENTRICULAR RESPONSE RIGHT BUNDLE BRANCH BLOCK [120+ ms QRS DURATION, UPRIGHT V1, 40+ ms S IN I/aVL/V4/V5/V6] LEFT ANTERIOR FASCICULAR BLOCK ABNORMAL ECG Electronically Signed By: Julien Torres MD [facility] us Baljinder Monreal MD ECG ORDERABLES Final Result [facility] * (ABNORMAL) Serum lipid panel (04/10/2016 10:35 [...] 2015. Serum 04/10/2016 10:3 5 PM CDT us [employer] [place] LAB BLOOD ORDERABLES Final Re sult CDR HISTORICAL RESULTS from Last 3 Months or Most Recently Relevant to Health Maintenance Insurance [employer] CHOICE PPO Advance Directives For more information, please contact: [phone] * Full Code (Latest Code Status on File) Date Activated Date Inactivated Comments 06/27/2025 2:31 AM 07/04/2025 7:42 PM * Full Code Date Activated Date Inactivated Comments 06/07/2025 3:52 PM 06/27/2025 2:31 AM * Full Code Date Activated Date Inactivated Comments 05/08/2025 8:28 PM 05/10/2025 7:50 PM Care Teams Crm Administrator Relationship Specialty Start Date End Date Parminder Rojas MD PCP - General 01/19/14 Yannick Guevara MD [address] [facility] [id number] [place] [address] Surgeon Colon and Rectal Surgery 02/07/21 Ayde Peña MD [id number] [place] [address] Referring Physician Family Medicine 02/07/21 [place] [address] [address] Surgeon Neurosurgery 07/01/25
[2025-08-17 11:27] LABS: Alanine Aminotransferase 29 U/L (6-35); Albumin Level 3.2 g/dL (3.5-5.1); Alkaline Phosphatase 130 U/L (38-126); Anion Gap 4 mmol/L (4-12); Aspartate Amino Transferase 27 U/L (14-36); Bilirubin,Total 0.4 mg/dL (0.2-1.3); Blood Urea Nitrogen 15 mg/dL (7-17); Calcium 8.8 mg/dL (8.4-10.2); Carbon Dioxide 32 mmol/L (22-30); Chloride 98 mmol/L (98-107); Estimated CRCL calculation 62 ml/min; Estimated Glomerular Filt Rate > 60; Glucose 99 mg/dL (65-110); Magnesium 1.3 mg/dL (1.6-2.3); Potassium 2.9 mmol/L (3.4-5.0); Sodium 134 mmol/L (137-145); Total Protein 5.8 g/dL (6.3-8.2)
[2025-08-17 11:33] LABS: NT Pro B Type Natriuretic Pept 2080 pg/mL (19.9-100)
[2025-08-17] MEDS: MAGNESIUM SULF 2 GM/WATER 50ML 2 GM/50 ML BAG IVPB (11:43)
[2025-08-17 11:52] LABS: Anisocytosis 1+; Hypochromasia 1+; Ovalocytes Occasional; Schistocytes Rare; Target Cells Occasional
[2025-08-17 11:53] LABS: Acanthocytes Occasional
--- NOTE | 2025-08-17 12:07 | ED.SOB ---
HPI - SOB/Dyspnea General Chief Complaint: Shortness of Breath/Dyspnea Stated Complaint: SOB Time Seen by Provider: 08/17/25 10:32 History of Present Illness HPI Narrative: Patient presents with increased shortness of breath, also having swelling to her legs, does have history of CHF has been taking water pills. Related Data Home Medications ?Medication ?Instructions ?Recorded ?Confirmed ?Last Taken ?Type cholecalciferol (vitamin D3) 25 25 mcg PO DAILY 07/07/25 08/17/25 07/06/25 07:45 History mcg (1,000 unit) capsule (Vitamin D3) losartan 25 mg tablet 25 mg PO DAILY 07/07/25 08/17/25 07/06/25 07:45 History Held on 08/11/25. Instructions: wait until see a PCP magnesium oxide 250 mg PO DAILY 07/07/25 08/17/25 08/16/25 08:00 History potassium chloride 10 mEq oral 20 meq PO DAILY 07/07/25 08/17/25 07/06/25 07:45 History packet (Jenniferza) Held on 08/11/25. Instructions: wait until see a PCP acetaminophen 500 mg capsule 500 mg PO Q6H PRN fever or pain 07/24/25 08/17/25 Unknown History amlodipine 10 mg tablet 10 mg PO DAILY 07/24/25 08/17/25 Unknown History Held on 08/11/25. Instructions: wait until see a PCP biotin 5 mg capsule 5 mg PO DAILY 07/24/25 08/17/25 Unknown History Held on 08/11/25. Instructions: wait until see a PCP Allergies Allergy/AdvReac Type Severity Reaction Status Date / Time ciprofloxacin Allergy Mild Unknown Verified 08/17/25 14:15 levofloxacin Allergy Unknown Unknown Verified 08/17/25 14:15 lisinopril Allergy Unknown Unknown Verified 08/17/25 14:15 amoxicillin (From Augmentin) AdvReac Severe Confusion Verified 08/17/25 14:15 clavulanic acid (From AdvReac Severe Confusion Verified 08/17/25 14:15 Augmentin) codeine AdvReac Mild Vomiting Verified 08/17/25 14:15 prednisone AdvReac Mild Rash Verified 08/17/25 14:15 tramadol AdvReac Mild Vomiting Verified 08/17/25 14:15 Review of Systems Review of Systems: All systems reviewed & are unremarkable except as noted in HPI and below PMFSH Past Medical History Medical History (Updated 08/17/25 @ 18:33 by Elicia Chaudhry MD) Rash due to allergy Cervical cord compression with myelopathy Diarrhea Preop cardiovascular exam Chronic obstructive pulmonary disease, unspecified Hard of hearing Eustachian tube dysfunction Cubital tunnel syndrome on right Pulmonary hypertension Chronic idiopathic myocarditis Restless leg syndrome 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 Chronic respiratory failure with hypoxia, on home oxygen therapy Transient ischemic attack Chronic hyponatremia Venous insufficiency Iron deficiency anemia Polymyalgia rheumatica Small vessel disease, cerebrovascular Chronic anticoagulation Paroxysmal atrial fibrillation Coronary artery disease Microscopic colitis Chronic diarrhea Exocrine pancreatic insufficiency COVID-19 Cervical arthritis Pneumonia Dyslipidemia Essential hypertension Gastro-esophageal reflux disease without esophagitis Multifocal atrial tachycardia Surgical History Surgical History History of heart artery stent History of cardiac catheterization History of bilateral knee replacement History of bilateral carpal tunnel release History of colonoscopy with polypectomy History of coronary artery bypass graft x 2 (12/2013) History of Achilles tendon repair History of spinal surgery Lumbar micro discectomy infusion. History of mitral valve repair History of shoulder surgery History of cataract extraction Left History of hand surgery trigger finger, thumb Family History Family History Mother Cerebrovascular accident Family history of diabetes mellitus in first degree relative Family history of coronary artery disease Acute myocardial infarction Diabetes mellitus Father Carcinoma of colon Family history of lung cancer Family history of malignant neoplasm of esophagus Sibling Liver disease Liver transplant recipient Other Family history of malignant neoplasm of brain Family history of malignant neoplasm of stomach Social History Social History Social History: Surrogate medical decision maker: Filippo Clifford, spouse. Code status: Full code. Smoking status: Former smoker Second hand tobacco smoke exposure: Yes Alcohol intake: never Drinks per week: 1 Alcohol use details: Rare alcohol use in moderation. Substance use: never Substance use type: does not use Lack of Transportation: No Lack of Food: Never True Current Housing: I Have Housing Concerned About Future Housing: No Difficulty Paying Gas/Electric Bills: No Difficulty Paying for Meds: No Currently Unemployed: No Education: Don't Know Difficulty w/ Childcare or Family Care: No Living arrangements: with family Additional living arrangements comments: Lives in [place] spouse. 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 Spiritual care concerns: No Exam Narrative: EXAMINATION OF ORGAN SYSTEMS/BODY AREAS: Constitutional: Vital signs per nursing GENERAL:No acute distress, non-toxic appearing. HEAD: Normal with no signs of head trauma. EYES: EOMI, conjunctiva normal ENT: Hearing grossly intact LUNGS: Nonlabored breathing. Crackles bilaterally HEART: Regular rate and rhythm ABD: Soft, nontender to palpation EXT: Extensive bilateral lower extremity pitting edema SKIN: Lesion left arm NEURO: Alert. No gross focal sensory or strength deficits. PSYCH: Normal affect Course Vital Signs Vital signs: Vital Signs Temperature 98 F 08/17/25 10:51 Pulse Rate 82 08/17/25 10:51 Respiratory Rate 16 08/17/25 10:51 Blood Pressure 154/74 H 08/17/25 10:51 Pulse Oximetry 96 08/17/25 10:51 Temperature 97.7 F 08/17/25 14:00 Pulse Rate 73 08/17/25 14:51 Respiratory Rate 16 08/17/25 14:51 Blood Pressure 137/80 08/17/25 14:00 Pulse Oximetry 97 08/17/25 14:51 Oxygen Delivery Nasal Cannula 08/17/25 14:51 Oxygen Flow Rate 2 08/17/25 14:51 MDM MDM Narrative Medical decision making narrative: 75-year-old female presenting to the emergency department with dyspnea, orthopnea and lower extremity edema, presentation and history of CHF, consistent with most likely CHF exacerbation. She has also required higher oxygen than her usual baseline. IV is established and cardiac workup is initiated. EKG: Performed in triage and interpreted by me. Ectopic rhythm. Rate 113. Normal axis. IN 158. QRS duration 90. QTc 452. No pathologic Q waves. No ST segment elevation or depression to suggest acute ischemia. Chest x-ray is performed and on my independent interpretation does show some pulmonary vascular congestion Patient is started on lasix. Labs notable for elevated BNP of 2000, magnesium 1.3 and potassium 2.9 which is or please. The patient will be admitted for CHF exacerbation and further management. Discussed with hospitalist for admission Differential Diagnosis Differential Diagnosis: CHF exacerbation, pneumonia, etc. Lab Data 08/17/25 10:44 08/17/25 10:44 Labs: Lab Results 08/17/25 Range/Units 10:44 WBC 9.5 (4.5-10.0) K/mm3 RBC 3.14 L (4.2-5.4) M/mm3 Hgb 8.1 L (12.0-15.0) g/dL Hct 27.3 L (37.0-47.0) % MCV 86.9 (80-100) fl MCH 25.8 L (26-34) pg MCHC 29.7 L (32-36) g/dl RDW 18.0 H (11.5-14.5) % Plt Count 359 (150-375) k/mm3 MPV 10.4 (7.4-10.4) fl Immature Gran % (Auto) 1.9 H (0-0.5) % Neut % (Auto) 70.7 (45.5-73.1) % Lymph % (Auto) 13.3 L (18.3-44.2) % [place] % (Auto) 12.1 H (2.6-8.5) % Eos % (Auto) 1.4 (0-4.4) % Baso % (Auto) 0.6 (0.2-1.2) % Lymph # (Auto) 1.26 (0.9-3.2) K/mm3 [place] # (Auto) 1.1 H (0.1-0.6) K/mm3 Eos # (Auto) 0.1 (0-0.3) K/mm3 Baso # (Auto) 0.1 (0.0-0.1) K/mm3 Abs Immat Gran (auto) 0.18 H (0.00-0.031) K/mm3 Absolute Neuts (auto) 6.7 (1.3-6.7) K/mm3 Absolute Nucleated RBC 0.000 (0.0-0.012) K/mm3 Band Neutrophils % Not Reportable Nucleated RBC % 0.0 (0.0-0.2) % Platelet Estimate Adequate (Adequate) Hypochromasia 1+ Anisocytosis 1+ Target Cells Occasional Ovalocytes Occasional Acanthocytes (Spur) Occasional Schistocytes Rare Sodium 134 L (137-145) mmol/L Potassium 2.9 L (3.4-5.0) mmol/L Chloride 98 (98-107) mmol/L Carbon Dioxide 32 H (22-30) mmol/L Anion Gap 4 (4-12) mmol/L BUN 15 D (7-17) mg/dL Creatinine 0.65 L (0.7-1.0) mg/dL Estim Creat Clear Calc 62 ml/min Estimated GFR > 60 (59 - ) Glucose 99 (65-110) mg/dL Lactic Acid 1.1 (0.7-2.0) mmol/L Calcium 8.8 (8.4-10.2) mg/dL Magnesium 1.3 L (1.6-2.3) mg/dL Total Bilirubin 0.4 (0.2-1.3) mg/dL AST 27 (14-36) U/L ALT 29 (6-35) U/L Alkaline Phosphatase 130 H (38-126) U/L NT-Pro-B Natriuret Pep 2080 H (19.9-100) pg/mL Total Protein 5.8 L (6.3-8.2) g/dL Albumin 3.2 L (3.5-5.1) g/dL ABG Data ABG results: 08/17/25 10:44 VBG pH 7.349 VBG pCO2 57.4 H VBG pO2 < 27.0 L VBG HCO3 30.9 H O2 Delivery Device Nasal cannula O2 Liters/Min 4.0 FiO2 36 Imaging Data Radiologist's impression: ITS Impressions Chest X-Ray 08/17/25 11:05 IMPRESSION: 1. Mild diffuse consolidative changes in the left lung which may represent pneumonia and/or pulmonary edema. Discharge Plan Discharge Clinical Impression: Acute exacerbation of CHF (congestive heart failure), Acute hypokalemia, Hypomagnesemia Patient Disposition: Still a Patient Condition: Stable
[2025-08-17] MEDS: POTASSIUM CHLORIDE 20 MEQ PACKET (FOR LIQUID) 40 MEQ PO (12:50)
--- NOTE | 2025-08-17 12:58 | WPCEDHO ---
ED Hand Off Checklist All vitals saved:yes IV Site documented:yes All med administrations documented:yes Triage Note Triage Note pt to ED by ems from home w/ 08/17/25 10:51 complaints of increased sob today . pt states she was 84% on 2L NC when they arrived. pt wears 2L at all times. hx of copd, chf, afib , diabetes and DC. pt just returned home from rehab from spinal surgery about a week ago. pt now sating 96% on 4L. denies any pain. BS 138. alert and oriented x4. Allergies ciprofloxacin Allergy (Mild, Verified 08/17/25 10:43) Unknown levofloxacin Allergy (Unknown, Verified 08/17/25 10:43) Unknown lisinopril Allergy (Unknown, Verified 08/17/25 10:43) Unknown amoxicillin (From Augmentin) Adverse Reaction (Severe, Verified 08/17/25 10:43) Confusion nausea, vomiting, confusion clavulanic acid (From Augmentin) Adverse Reaction (Severe, Verified 08/17/25 10:43) Confusion nausea, vomiting, confusion codeine Adverse Reaction (Mild, Verified 08/17/25 10:43) Vomiting prednisone Adverse Reaction (Mild, Verified 08/17/25 10:43) Rash tramadol Adverse Reaction (Mild, Verified 08/17/25 10:43) Vomiting Family History (Last Reviewed 08/17/25 @ 10:43 by Ammy Pino, YULIYA) Mother Cerebrovascular accident Family history of diabetes mellitus in first degree relative Family history of coronary artery disease Acute myocardial infarction Diabetes mellitus Father Carcinoma of colon Family history of lung cancer Family history of malignant neoplasm of esophagus Sibling Liver disease Liver transplant recipient Other Family history of malignant neoplasm of brain Family history of malignant neoplasm of stomach Active Medications including assessments/comments Magnesium Sulfate (Magnesium Sulf 2 Gm/Water 50ml) 2 gm in 50 mls @ 25 mls/hr IVPB ONCE ONE Stop: 08/17/25 13:28 Last Admin: 08/17/25 11:43 Dose: 25 mls/hr Documented By: KIRK Co-signed By: ANJALI Infusion/Titration Document 08/17/25 11:43 KIRK (Rec: 08/17/25 11:43 KIRK [id number]) Co-signed By Cande Ledesma RN Intake IV Site Peripheral Access Right Antecubital Container Volume 50 Waste Amount 0 Dosing Infusion Rate 25 Increase/Decrease Started Elapsed Time Elapsed Time ( 0m minutes) Magnesium Sulfate Infusion Document 08/17/25 11:43 [facility] (Rec: 08/17/25 11:43 [facility] [id number]) Co-signed By Cande Ledesma RN Infusion Action Magnesium Sulfate Initiated Infusion Action Administered/Completed Medications Discontinued Medications Furosemide (Furosemide Inj 40 Mg/4 Ml Vial) 40 mg IV PUSH ONCE STA Stop: 08/17/25 10:42 Last Admin: 08/17/25 11:10 Dose: 40 mg Documented By: NANCY Potassium Chloride (Potassium Chloride 20 Meq Packet (For Liquid)) 40 meq PO ONCE STA Stop: 08/17/25 12:12 Last Admin: 08/17/25 12:50 Dose: 40 meq Documented By: [facility] Interventions/Assessments Cardiac Monitoring Start: 08/17/25 10:30 Freq: Status: Active Protocol: Document 08/17/25 10:58 [facility] (Rec: 08/17/25 10:59 [facility] [id number]) Field Laboratory Operator Assessment Field Laboratory Operator Yes Applied IV / Saline Lock, Insert Start: 08/17/25 10:33 Freq: STAT Status: Active Protocol: Document 08/17/25 10:49 [facility] (Rec: 08/17/25 10:50 [facility] [id number]) IV Assessment Peripheral Access Right Antecubital IV Catheter Access Initiated IV Insertion Date 08/17/25 IV Insertion Time 10:49 Catheter Gauge 20 IV Insertion 1 Attempts IV Site Assessment WNL IV Care and WNL Maintenance PA: Cardiovascular Assessment Start: 08/17/25 10:30 Freq: Status: Active Protocol: Document 08/17/25 10:57 [facility] (Rec: 08/17/25 10:58 [facility] [id number]) Cardiovascular Assessment Cardiovascular None Symptoms Skin Description Normal Color Heart Sounds Normal Jugular Vein None Distention Rhythm/Strength Apical Rhythm Irregular Pulse Strength 3+ Normal EKG Rythm Atrial Fibrillation Capillary Refill Bilateral Upper Extremity Capillary Refill Normal/Less than 2 Seconds Edema Assessment Bilateral Lower Leg(s) Edema Degree 2+ (2-4 mm) PA: Respiratory Assessment Start: 08/17/25 10:30 Freq: Status: Active Protocol: Document 08/17/25 10:57 [facility] (Rec: 08/17/25 10:58 [facility] [id number]) Respiratory Assessment Symptoms Shortness of Breath at Rest Effort Normal Pattern Regular Depth Normal Chest Expansion Symmetrical Adult Capillary Normal/Less than 2 Seconds Refill Last Vital Signs Temperature 98 F 08/17/25 10:51 Pulse Rate 83 08/17/25 12:18 Respiratory Rate 22 H 08/17/25 12:18 Pulse Oximetry 99 08/17/25 12:18 Blood Pressure 121/89 08/17/25 12:18 Blood Pressure Mean 99 08/17/25 12:18 Weight 77 kg 08/17/25 10:51 Last Result - Abnormals Only RBC 3.14 M/mm3 (4.2-5.4) L 08/17/25 10:44 Hgb 8.1 g/dL (12.0-15.0) L 08/17/25 10:44 Hct 27.3 % (37.0-47.0) L 08/17/25 10:44 MCH 25.8 pg (26-34) L 08/17/25 10:44 MCHC 29.7 g/dl (32-36) L 08/17/25 10:44 RDW 18.0 % (11.5-14.5) H 08/17/25 10:44 Immature Gran % (Auto) 1.9 % (0-0.5) H 08/17/25 10:44 Lymph % (Auto) 13.3 % (18.3-44.2) L 08/17/25 10:44 [place] % (Auto) 12.1 % (2.6-8.5) H 08/17/25 10:44 [place] # (Auto) 1.1 K/mm3 (0.1-0.6) H 08/17/25 10:44 Abs Immat Gran (auto) 0.18 K/mm3 (0.00-0.031) H 08/17/25 10:44 VBG pCO2 57.4 mmHg (42.0-48.0) H 08/17/25 10:44 VBG pO2 < 27.0 mmHg (35.0-45.0) L 08/17/25 10:44 VBG HCO3 30.9 mEq/l (24.0-30.0) H 08/17/25 10:44 Sodium 134 mmol/L (137-145) L 08/17/25 10:44 Potassium 2.9 mmol/L (3.4-5.0) L 08/17/25 10:44 Carbon Dioxide 32 mmol/L (22-30) H 08/17/25 10:44 Creatinine 0.65 mg/dL (0.7-1.0) L 08/17/25 10:44 Magnesium 1.3 mg/dL (1.6-2.3) L 08/17/25 10:44 Alkaline Phosphatase 130 U/L (38-126) H 08/17/25 10:44 NT-Pro-B Natriuret Pep 2080 pg/mL (19.9-100) H 08/17/25 10:44 Total Protein 5.8 g/dL (6.3-8.2) L 08/17/25 10:44 Albumin 3.2 g/dL (3.5-5.1) L 08/17/25 10:44 Most Recent Suicide Severity Rating Suicide Severity Rating NO RISK INDICATED 08/17/25 10:51
--- NOTE | 2025-08-17 14:07 | PC.NURSE ---
Patient admitted to 260 from ED. Patient brought up by stretcher with spouse at bedside. ED report received from Becky SANDERS.
--- NOTE | 2025-08-17 16:42 | P.HP_ITS ---
H&P: HPI History of Present Illness Date/Time: 08/17/25 16:42 Chief Complaint: increased shortness of breath Narrative: 75-year-old female with a past medical history of CHF, dm 2, HTN, COPD on home 2L O2, RLS, pulmonary hypertension, AFib, CAD HLD, GERD presents to the ED on 08/17/2025 with complaints increased shortness of breath. Patient had recent C- spine surgery posterior cervical decompression and fusion C2-6 at [facility] on 06/26/25 and required keep c-collar on for 3 months. Patient discharged from rehab facility to home on 08/12/2025. Patient's states they are waiting for home health care to contact them to start. patient states her increased dyspnea started 2 days prior to arrival but last night it would not let up. Also states she has had increasing lower extremity edema since returning home from rehab. Patient has been on supplemental O2 at 2 L per nasal cannula for the past 3 years. Denies chest pain, fever, abdominal pain. Per note from PCP dated 08/16/2025: - The patient had neck surgery for arthritis at [facility], after which she went to [facility] for rehabilitation. - While at rehab, she fell out of bed, which led to an admission to [facility] on July 07. - During hospitalization, she was treated for a urinary tract infection with IV antibiotics after her urine culture grew two types of bacteria. - Blood cultures for sepsis were negative. - She was monitored for pneumonia, with multiple chest x-rays showing fluid in the lungs, which her surgeon initially attributed to her post-surgical state. - A final chest x-ray on 07/21 showed worsening atelectasis. - A CT of the abdomen and pelvis showed possible colitis, and she experienced diarrhea, but stool cultures were negative for infection. Initial vital signs 154/74, HR 82, respirations 16, afebrile and 96% on 4 L nasal cannula. No leukocytosis on Hematology. Baseline anemia. VBG pH 7.349, pCO2 57.4, PO2 < 27, HC03 30.9 On 4 L nasal cannula. Potassium 2.9, carbon dioxide 32, creatinine 0.65, magnesium 1.3. Alk-phos 130. BNP 2080. EKG ectopic atrial tachycardia, left axis deviation, right bundle branch block. Chest x-ray reads mild diffuse consolidative changes in the left lung which may represent pneumonia and/or pulmonary edema. 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 Chronic respiratory failure with hypoxia, on home oxygen therapy Transient ischemic attack Chronic hyponatremia Venous insufficiency Iron deficiency anemia Polymyalgia rheumatica Small vessel disease, cerebrovascular Chronic anticoagulation Paroxysmal atrial fibrillation Coronary artery disease Microscopic colitis Chronic diarrhea Exocrine pancreatic insufficiency COVID-19 Cervical arthritis Pneumonia Dyslipidemia Essential hypertension Gastro-esophageal reflux disease without esophagitis Multifocal atrial tachycardia Surgical History Surgical History History of heart artery stent History of cardiac catheterization History of bilateral knee replacement History of bilateral carpal tunnel release History of colonoscopy with polypectomy History of coronary artery bypass graft x 2 (12/2013) History of Achilles tendon repair History of spinal surgery Lumbar micro discectomy infusion. History of mitral valve repair History of shoulder surgery History of cataract extraction Left History of hand surgery trigger finger, thumb Family History Family History Mother Cerebrovascular accident Family history of diabetes mellitus in first degree relative Family history of coronary artery disease Acute myocardial infarction Diabetes mellitus Father Carcinoma of colon Family history of lung cancer Family history of malignant neoplasm of esophagus Sibling Liver disease Liver transplant recipient Other Family history of malignant neoplasm of brain Family history of malignant neoplasm of stomach Social History Social History Social History: Surrogate medical decision maker: Filippo Clifford, spouse. Code status: Full code. Smoking status: Former smoker Second hand tobacco smoke exposure: Yes Alcohol intake: never Drinks per week: 1 Alcohol use details: Rare alcohol use in moderation. Substance use: never Substance use type: does not use Lack of Transportation: No Lack of Food: Never True Current Housing: I Have Housing Concerned About Future Housing: No Difficulty Paying Gas/Electric Bills: No Difficulty Paying for Meds: No Currently Unemployed: No Education: Don't Know Difficulty w/ Childcare or Family Care: No Living arrangements: with family Additional living arrangements comments: Lives in [place] spouse. Occupation/Education: retired Additional occupation/education comments: Worked in [employer]. Spiritual care concerns: No Meds Home Medications and Allergies Home Medications ?Medication ?Instructions ?Recorded ?Confirmed ?Type arformoterol 15 mcg/2 mL solution See Rx Instructions .Route 06/16/24 08/17/25 Rx for nebulization .COMPLEX #30 ea Held on 08/11/25. Instructions: wait until see a PCP evolocumab 140 mg/mL subcutaneous 140 mg subcut .every 2 weeks #2 mL 11/10/24 08/17/25 Rx pen injector (Angelika [facility]) Held on 08/11/25. Instructions: wait until see a PCP pramipexole 0.5 mg tablet 0.5 mg PO HS #90 tabs 08/17/25 Rx Held on 08/11/25. Instructions: wait until see a PCP metformin 500 mg tablet,extended 1,000 mg (2 x 500 mg) PO QPM #90 05/22/25 08/17/25 Rx release 24 hr tabs Held on 08/11/25. Instructions: wait until see a PCP cholecalciferol (vitamin D3) 25 25 mcg PO DAILY 08/17/25 History mcg (1,000 unit) capsule (Vitamin D3) losartan 25 mg tablet 25 mg PO DAILY 07/07/2507/31 History Held on 08/11/25. Instructions: wait until see a PCP magnesium oxide 250 mg PO DAILY 07/07/25 History potassium chloride 10 mEq oral 20 meq PO DAILY 5 08/17/25 History packet (Pokonza) Held on 08/11/25. Instructions: wait until see a PCP acetaminophen 500 mg capsule 500 mg PO Q6H PRN fever o r pain 07/24/25 08/17/25 History amlodipine 10 mg tablet 10 mg PO DAILY 07/24/2507/31 History Held on 08/11/25. Instructions: wait until see a PCP biotin 5 mg capsule 5 mg PO DAILY 07/24/2508/17 History Held on 08/11/25. Instructions: wait until see a PCP furosemide 40 mg tablet See Rx Instructions .Route 1 10/12/24 08/17/25 Rx .COMPLEX #30 tabs insulin glargine 100 unit/mL 6 unit (0.06 mL) subcut D AILY #10 08/11/25 08/17/25 Rx subcutaneous solution (Lantus mL U-100 Insulin) insulin lispro 100 unit/mL 3 unit (0.03 mL) subcut TID #10 mL 08/11/25 08/17/25 Rx subcutaneous solution (Humalog U-100 Insulin) pantoprazole 40 mg tablet,delayed 40 mg PO QAM #30 tab s 08/11/25 08/17/25 Rx release potassium chloride 20 mEq oral 40 meq PO DAILY 7 days #14 ea 08/11/25 08/17/25 Rx packet pravastatin 10 mg tablet See Rx Instructions .Route 1 10/12/24 08/17/25 Rx .COMPLEX #30 tabs prednisone 10 mg tablet 10 mg PO DAILY 30 days #30 t abs 08/11/25 08/17/25 Rx rivaroxaban 20 mg tablet See Rx Instructions .Route 1 10/12/24 08/17/25 Rx .COMPLEX #30 tabs simethicone 80 mg chewable tablet 80 mg PO QID PRN Abd ominal 08/11/25 08/17/25 Rx Cramping #0 tabs sotalol 80 mg tablet 80 mg PO Q12HR 30 days #60 t abs 08/11/25 08/17/25 Rx blood sugar diagnostic (Accu-Chek #100 ea 08/16/25 Rx Guide test strips) blood-glucose meter (Accu-Chek #1 ea 08/16/25 08/17/25 Rx Guide Me Glucose Meter) lancets (Accu-Chek Softclix #200 ea 08/16/25 08/17/25 Rx Lancets) Allergies Allergy/AdvReac Type Severity Reaction Status Date / Time ciprofloxacin Allergy Mild Unknown Verified 08/17/25 14:15 levofloxacin Allergy Unknown Unknown Verified 08/17/25 14:15 lisinopril Allergy Unknown Unknown Verified 08/17/25 14:15 amoxicillin (From Augmentin) AdvReac Severe Confusion Verified 08/17/25 14:15 clavulanic acid (From AdvReac Severe Confusion Verified 08/17/25 14:15 Augmentin) codeine AdvReac Mild Vomiting Verified 08/17/25 14:15 prednisone AdvReac Mild Rash Verified 08/17/25 14:15 tramadol AdvReac Mild Vomiting Verified 08/17/25 14:15 Vital Signs Vital Signs - 24 hr 08/17/25 10:51 08/17/25 12:18 08/17/25 13:25 Temperature 98 F Pulse Rate 82 83 85 Respiratory Rate 16 22 H 16 Blood Pressure 154/74 H 121/89 Pulse Oximetry 96 99 100 Oxygen Delivery Nasal Cannula Oxygen Flow Rate 4 08/17/25 14:00 08/17/25 14:51 Temperature 97.7 F Pulse Rate 85 73 Respiratory Rate 16 16 Blood Pressure 137/80 Pulse Oximetry 100 97 Oxygen Delivery Nasal Cannula Oxygen Flow Rate 2 Exam Narrative: GENERAL: non-toxic appearing, in no acute distress. HEAD: Normocephalic, atraumatic. collar in place for recent c spine surgery EYES: PERRLA. Conjunctivae clear. NOSE: Normal no drainage. THROAT: Pharynx clear, no exudate. NECK: Trachea midline. No adenopathy, no masses. RESPIRATORY: Airway patent, respirations nonlabored. Diminished bilaterally CARDIOVASCULAR: Regular rate and rhythm BREASTS: Defer GASTROINTESTINAL: Abdomen is soft and nontender. No organomegaly. Bowel sounds normal in all quadrants. GENITOURINARY: Defer MUSCULOSKELETAL: Moves all extremities. No gross deformities. +4 pitting edema bilateral extremities. SKIN: Warm, dry, normal color. Scabs scratching pattern noted to right posterior knee NEURO: A&O X4. Speech clear PSYCHIATRIC: Normal interaction Results Labs Labs: Short CBC 08/17/25 Range/Units 10:44 WBC 9.5 (4.5-10.0) K/mm3 Hgb 8.1 L (12.0-15.0) g/dL Hct 27.3 L (37.0-47.0) % Plt Count 359 (150-375) k/mm3 [facility] 08/17/25 10:44 Sodium 134 L Potassium 2.9 L Chloride 98 Carbon Dioxide 32 H BUN 15 D Creatinine 0.65 L Glucose 99 Calcium 8.8 Liver Function 08/17/25 Range/Units 10:44 Total Bilirubin 0.4 (0.2-1.3) mg/dL AST 27 (14-36) U/L ALT 29 (6-35) U/L Alkaline Phosphatase 130 H (38-126) U/L Albumin 3.2 L (3.5-5.1) g/dL Quality VTE Prophylaxis VTE prophylaxis: pharmacologic ordered Assessment and Plan Assessment and plan (1) Acute exacerbation of CHF (congestive heart failure): Code(s): I50.9 - Heart failure, unspecified Status: Acute Assessment and Plan: - BNP 2079 - furosemide 40 mg IVP b.i.d. - Follows Dr. Sorensen outpatient - monitor I&Os - trend renal function (2) Chronic obstructive pulmonary disease, unspecified: Code(s): J44.9 - Chronic obstructive pulmonary disease, unspecified Status: Acute Assessment and Plan: does not appear to be in acute exacerbation. Currently on baseline O2. - continue prednisone 10 mg p.o. daily (3) Paroxysmal atrial fibrillation: Code(s): I48.0 - Paroxysmal atrial fibrillation Status: Chronic Assessment and Plan: continue Betapace, Xarelto (4) Type 2 diabetes mellitus with diabetic nephropathy: Qualifiers: Diabetes mellitus mcc insulin use: without machine long goods helper use Qualified Code(s): E11.21 - Type 2 diabetes mellitus with diabetic nephropathy Code(s): E11.21 - Type 2 diabetes mellitus with diabetic nephropathy Status: Acute Assessment and Plan: - hypoglycemia protocol - POC blood glucose ACHS - correct regimen ordered: low-dose correctional scale (5) Cervical cord compression with myelopathy: Code(s): G95.20 - Unspecified cord compression Status: Chronic Assessment and Plan: Continue with cervical collar. Follow-up surgeon at [facility] (6) Hyperlipidemia: Code(s): E78.5 - Hyperlipidemia, unspecified Status: Acute Assessment and Plan: Continue pravastatin Prior Studies I have reviewed the following patient records and this information was taken into consideration when formulating the assessment and plan.: previous labs, previous ER visits, previous hospitalizations and previous clinic visits Time Spent with Patient Time with patient: 45 - 74 minutes
[2025-08-17] MEDS: RIVAROXABAN 20 MG TABLET PO (20:45)
[2025-08-17] MEDS: SOTALOL HCL 80 MG TABLET PO (20:45)
[2025-08-18] VITALS (7 sets, daily range): BP systolic 114–129; BP diastolic 58–64; PULSE 60–99; RESP 18–20; TEMP 36.3–36.7; O2SAT 97–98
[2025-08-18] MEDS: ACETAMINOPHEN 500 MG TABLET PO ×3 (04:20→21:26)
[2025-08-18 05:45] LABS: Anion Gap 7 mmol/L (4-12); Blood Urea Nitrogen 13 mg/dL (7-17); Calcium 8.7 mg/dL (8.4-10.2); Carbon Dioxide 28 mmol/L (22-30); Chloride 98 mmol/L (98-107); Estimated CRCL calculation 59 ml/min; Estimated Glomerular Filt Rate > 60; Glucose 86 mg/dL (65-110); Potassium 3.6 mmol/L (3.4-5.0); Sodium 133 mmol/L (137-145)
[2025-08-18 06:30] LABS: Hematocrit 27.8 % (37.0-47.0); Hemoglobin 7.9 g/dL (12.0-15.0); Immature Granulocyte Percent A 1.4 % (0-0.5); Lymphocytes Absolute Auto 1.06 K/mm3 (0.9-3.2); Mean Corpuscular HGB Conc 28.4 g/dl (32-36); Mean Corpuscular Hemoglobin 25.2 pg (26-34); Mean Corpuscular Volume 88.5 fl (80-100); Nucleated Red Blood Cells Absolute Auto 0.000 K/mm3 (0.0-0.012); Nucleated Red Blood Cells Perc 0.0 % (0.0-0.2); Platelet Count Result 314 k/mm3 (150-375); Red Blood Count 3.14 M/mm3 (4.2-5.4); White Blood Count 9.8 K/mm3 (4.5-10.0)
[2025-08-18 06:54] LABS: Anisocytosis 1+; Hypochromasia 2+; Ovalocytes 1+; Schistocytes Occasional
--- NOTE | 2025-08-18 08:39 | P.PNIM_ITS ---
Assessment and Plan Assessment and Plan (1) Acute exacerbation of CHF (congestive heart failure): Code(s): I50.9 - Heart failure, unspecified Status: Acute Assessment and Plan: - BNP 2079 - furosemide 40 mg IVP b.i.d. - Follows Dr. Sorensen outpatient - monitor I&Os - trend renal function (2) Chronic obstructive pulmonary disease, unspecified: Code(s): J44.9 - Chronic obstructive pulmonary disease, unspecified Status: Acute Assessment and Plan: does not appear to be in acute exacerbation. Currently on baseline O2. - continue prednisone 10 mg p.o. daily (3) Paroxysmal atrial fibrillation: Code(s): I48.0 - Paroxysmal atrial fibrillation Status: Chronic Assessment and Plan: continue Betapace, Xarelto (4) Type 2 diabetes mellitus with diabetic nephropathy: Qualifiers: Diabetes mellitus retirement insulin use: without retirement use Qualified Code(s): E11.21 - Type 2 diabetes mellitus with diabetic nephropathy Code(s): E11.21 - Type 2 diabetes mellitus with diabetic nephropathy Status: Acute Assessment and Plan: - hypoglycemia protocol - POC blood glucose ACHS - correct regimen ordered: low-dose correctional scale (5) Cervical cord compression with myelopathy: Code(s): G95.20 - Unspecified cord compression Status: Chronic Assessment and Plan: Continue with cervical collar. Follow-up surgeon at [facility] (6) Hyperlipidemia: Code(s): E78.5 - Hyperlipidemia, unspecified Status: Acute Assessment and Plan: Continue pravastatin Plan will add buspar low dose to help with anxiety Medical Record Review I have reviewed the following patient records and this information was taken into consideration when formulating the assessment and plan.: previous labs Time Spent With Patient Time with patient: 25 - 35 minutes Subjective Date/time seen: 08/18/25 08:39 Interval history: 75-year-old female with a past medical history of CHF, dm 2, HTN, COPD on home 2L O2, RLS, pulmonary hypertension, AFib, CAD HLD, GERD presents to the ED on 08/17/2025 with complaints increased shortness of breath. Patient had recent C- spine surgery posterior cervical decompression and fusion C2-6 at [facility] on 06/26/25 and required keep c-collar on for 3 months. Patient discharged from rehab facility to home on 08/12/2025. Patient's states they are waiting for home health care to contact them to start. patient states her increased dyspnea started 2 days prior to arrival but last night it would not let up. Also states she has had increasing lower extremity edema since returning home from rehab. Patient has been on supplemental O2 at 2 L per nasal cannula for the past 3 years. Denies chest pain, fever, abdominal pain. Per note from PCP dated 08/16/2025: - The patient had neck surgery for arthritis at [facility], after which she went to [facility] for rehabilitation. - While at rehab, she fell out of bed, which led to an admission to [facility] on July 07. - During hospitalization, she was treated for a urinary tract infection with IV antibiotics after her urine culture grew two types of bacteria. - Blood cultures for sepsis were negative. - She was monitored for pneumonia, with multiple chest x-rays showing fluid in the lungs, which her surgeon initially attributed to her post-surgical state. - A final chest x-ray on 07/21 showed worsening atelectasis. - A CT of the abdomen and pelvis showed possible colitis, and she experienced diarrhea, but stool cultures were negative for infection. Initial vital signs 154/74, HR 82, respirations 16, afebrile and 96% on 4 L nasal cannula. No leukocytosis on Hematology. Baseline anemia. VBG pH 7.349, pCO2 57.4, PO2 < 27, HC03 30.9 On 4 L nasal cannula. Potassium 2.9, carbon dioxide 32, creatinine 0.65, magnesium 1.3. Alk-phos 130. BNP 2080. EKG ectopic atrial tachycardia, left axis deviation, right bundle branch block. Chest x-ray reads mild diffuse consolidative changes in the left lung which may represent pneumonia and/or pulmonary edema. 08/18 pt is seen and examined. she is feeling somewhat anxious, does have anxiety. no other complains otherwise Review of Systems Review of Systems: All systems reviewed & are unremarkable except as noted in HPI and below Exam Narrative: GENERAL: non-toxic appearing, in no acute distress. HEAD: Normocephalic, atraumatic. collar in place for recent c spine surgery EYES: PERRLA. Conjunctivae clear. NOSE: Normal no drainage. THROAT: Pharynx clear, no exudate. NECK: Trachea midline. No adenopathy, no masses. RESPIRATORY: Airway patent, respirations nonlabored. Diminished bilaterally CARDIOVASCULAR: Regular rate and rhythm BREASTS: Defer GASTROINTESTINAL: Abdomen is soft and nontender. No organomegaly. Bowel sounds normal in all quadrants. GENITOURINARY: Defer MUSCULOSKELETAL: Moves all extremities. No gross deformities. +4 pitting edema bilateral extremities. SKIN: Warm, dry, normal color. Scabs scratching pattern noted to right posterior knee NEURO: A&O X4. Speech clear PSYCHIATRIC; anxious Const: General: comfortable Objective Data Vital Signs Vital Signs: Vital Signs - 24 hr 08/17/25 10:51 08/17/25 12:18 08/17/25 13:25 Temperature 98 F Pulse Rate 82 83 85 Respiratory Rate 16 22 H 16 Blood Pressure 154/74 H 121/89 Pulse Oximetry 96 99 100 Oxygen Delivery Nasal Cannula Oxygen Flow Rate 4 08/17/25 14:00 08/17/25 14:51 08/17/25 20:00 Temperature 97.7 F Pulse Rate 85 73 93 Respiratory Rate 16 16 18 Blood Pressure 137/80 Pulse Oximetry 100 97 96 Oxygen Delivery Nasal Cannula Nasal Cannula Oxygen Flow Rate 2 2 08/17/25 20:16 08/17/25 20:45 08/18/25 05:12 Temperature 97.6 F 97.7 F Pulse Rate 94 93 60 Respiratory Rate 18 18 Blood Pressure 138/65 114/59 L Pulse Oximetry 96 97 Oxygen Delivery Oxygen Flow Rate Intake/Output Intake/Output: Intake & Output 08/15/25 08/16/25 08/17/25 08/18/25 23:59 23:59 23:59 23:59 Intake Total 290 120 Output Total 800 1300 Balance -510 -1180 Meds/Results Medications: Active Medications Generic Name Dose Route Start Last Admin Trade Name Freq PRN Reason Stop Dose Admin Acetaminophen 500 mg 08/17/25 19:48 08/18/25 04:20 Acetaminophen 500 Mg Tablet PO 500 mg Q6H PRN Administration fever or pain rated 1-3 Dextrose 12.5 gm 08/17/25 19:53 Dextrose 50% 25 Gm/50 Ml Syringe IV PUSH PRN PRN Hypoglycemia Protocol Furosemide 40 mg 08/17/25 19:55 08/17/25 20:45 Furosemide Inj 40 Mg/4 Ml Vial IV PUSH 40 mg BID IVONE Administration Glucagon 1 mg 08/17/25 19:53 Glucagon For Inj 1 Mg Vial IM PRN PRN Hypoglycemia Protocol Glucose 15 gm 08/17/25 19:53 Glucose Oral Gel 15 Gm Of Glucse In 37.5 Gm Tube PO PRN PRN Hypoglycemia Protocol Dextrose 1,000 mls @ 100 mls/hr 08/17/25 19:53 Dextrose 5% 1,000 Ml IVPB PRN PRN Hypoglycemia Protocol Insulin Aspart 2 - 5 units 08/18/25 08:00 Insulin Aspart (*Bkc) 100 Units/Ml SUB-Q TIDWM [facility] Protocol Pantoprazole Sodium 40 mg 08/18/25 09:00 Pantoprazole 40 Mg Tablet PO QAM [facility] Potassium Chloride 40 meq 08/18/25 09:00 Potassium Chloride 20 Meq Packet (For Liquid) PO DAILY [facility] Pravastatin Sodium 10 mg 08/18/25 09:00 Pravastatin Sodium 10 Mg Tablet BY MOUTH DAILY [facility] Prednisone 10 mg 08/18/25 09:00 Prednisone 10 Mg Tablet PO DAILY [facility] Rivaroxaban 20 mg 08/17/25 19:55 08/17/25 20:45 Rivaroxaban 20 Mg Tablet PO 20 mg DAILY@1700 [facility] Administration Sotalol HCl 80 mg 08/17/25 21:00 08/17/25 20:45 Sotalol Hcl 80 Mg Tablet PO 80 mg Q12HR IVONE Administration Vitamin D 25 mcg 08/18/25 09:00 Cholecalciferol (Vitamin D3) 25 Mcg (1,000 Units) Tablet PO DAILY [facility] Radiology Results: ITS Impressions Chest X-Ray 08/17/25 11:05 IMPRESSION: 1. Mild diffuse consolidative changes in the left lung which may represent pneumonia and/or pulmonary edema. Labs Labs: Laboratory Results - last 24 hr 08/17/25 08/17/25 08/18/25 10:44 20:21 04:52 WBC 9.5 RBC 3.14 L Hgb 8.1 L Hct 27.3 L MCV 86.9 MCH 25.8 L MCHC 29.7 L RDW 18.0 H Plt Count 359 MPV 10.4 Immature Gran % (Auto) 1.9 H Neut % (Auto) 70.7 Lymph % (Auto) 13.3 L Garza % (Auto) 12.1 H Eos % (Auto) 1.4 Baso % (Auto) 0.6 Lymph # (Auto) 1.26 Garza # (Auto) 1.1 H Eos # (Auto) 0.1 Baso # (Auto) 0.1 Abs Immat Gran (auto) 0.18 H Absolute Neuts (auto) 6.7 Absolute Nucleated RBC 0.000 Band Neutrophils % Not Reportable Nucleated RBC % 0.0 Platelet Estimate Adequate Hypochromasia 1+ Anisocytosis 1+ Target Cells Occasional Ovalocytes Occasional Acanthocytes (Spur) Occasional Schistocytes Rare VBG pH 7.349 VBG pCO2 57.4 H VBG pO2 < 27.0 L VBG HCO3 30.9 H O2 Delivery Device Nasal cannula O2 Liters/Min 4.0 FiO2 36 Sodium 134 L 133 L Potassium 2.9 L 3.6 Chloride 98 98 Carbon Dioxide 32 H 28 Anion Gap 4 7 BUN 15 D 13 Creatinine 0.65 L 0.68 L Estim Creat Clear Calc 62 59 Estimated GFR > 60 > 60 Glucose 99 86 POC Capillary Glucose 188 H Lactic Acid 1.1 Calcium 8.8 8.7 Magnesium 1.3 L Total Bilirubin 0.4 AST 27 ALT 29 Alkaline Phosphatase 130 H NT-Pro-B Natriuret Pep 2080 H Total Protein 5.8 L Albumin 3.2 L 08/18/25 08/18/25 06:17 08:03 WBC 9.8 RBC 3.14 L Hgb 7.9 L Hct 27.8 L MCV 88.5 MCH 25.2 L MCHC 28.4 L RDW 18.0 H Plt Count 314 MPV 10.7 H Immature Gran % (Auto) 1.4 H Neut % (Auto) 73.1 Lymph % (Auto) 10.8 L Garza % (Auto) 12.5 H Eos % (Auto) 1.4 Baso % (Auto) 0.8 Lymph # (Auto) 1.06 Garza # (Auto) 1.2 H Eos # (Auto) 0.1 Baso # (Auto) 0.1 Abs Immat Gran (auto) 0.14 H Absolute Neuts (auto) 7.1 H Absolute Nucleated RBC 0.000 Band Neutrophils % Not Reportable Nucleated RBC % 0.0 Platelet Estimate Adequate Hypochromasia 2+ Anisocytosis 1+ Target Cells Ovalocytes 1+ Acanthocytes (Spur) Schistocytes Occasional VBG pH VBG pCO2 VBG pO2 VBG HCO3 O2 Delivery Device O2 Liters/Min FiO2 Sodium Potassium Chloride Carbon Dioxide Anion Gap BUN Creatinine Estim Creat Clear Calc Estimated GFR Glucose POC Capillary Glucose 104 Lactic Acid Calcium Magnesium Total Bilirubin AST ALT Alkaline Phosphatase NT-Pro-B Natriuret Pep Total Protein Albumin Quality VTE Prophylaxis VTE prophylaxis: pharmacologic ordered
[2025-08-18] MEDS: CHOLECALCIFEROL (VITAMIN D3) 25 MCG (1,000 UNITS) TABLET PO (09:10)
[2025-08-18] MEDS: PANTOPRAZOLE 40 MG TABLET PO (09:10)
[2025-08-18] MEDS: PRAVASTATIN SODIUM 10 MG TABLET BY MOUTH (09:10)
[2025-08-18] MEDS: POTASSIUM CHLORIDE 20 MEQ PACKET (FOR LIQUID) 40 MEQ PO (09:12)
[2025-08-18] MEDS: FUROSEMIDE INJ 40 MG/4 ML VIAL IV PUSH ×2 (09:17→17:57)
[2025-08-18] MEDS: SOTALOL HCL 80 MG TABLET PO ×2 (09:24→21:27)
[2025-08-18] MEDS: ALPRAZolam (*CRX) 0.25 MG TABLET PO (10:22)
[2025-08-18] MEDS: busPIRone HCL 2.5 MG TABLET PO ×2 (12:48→21:25)
[2025-08-18] MEDS: INSULIN ASPART (*BKC) 100 UNITS/ML SUB-Q (12:48)
[2025-08-18] MEDS: RIVAROXABAN 20 MG TABLET PO (17:56)
[2025-08-19] VITALS (7 sets, daily range): BP systolic 108–140; BP diastolic 51–71; PULSE 81–112; RESP 16–18; TEMP 36.4–36.9; O2SAT 97–98
[2025-08-19] MEDS: ACETAMINOPHEN 500 MG TABLET PO ×2 (05:50→20:25)
[2025-08-19] MEDS: busPIRone HCL 2.5 MG TABLET PO ×2 (08:26→20:24)
[2025-08-19] MEDS: CHOLECALCIFEROL (VITAMIN D3) 25 MCG (1,000 UNITS) TABLET PO (08:26)
[2025-08-19] MEDS: PANTOPRAZOLE 40 MG TABLET PO (08:26)
[2025-08-19] MEDS: POTASSIUM CHLORIDE 20 MEQ PACKET (FOR LIQUID) 40 MEQ PO (08:26)
[2025-08-19] MEDS: PRAVASTATIN SODIUM 10 MG TABLET BY MOUTH (08:26)
[2025-08-19] MEDS: FUROSEMIDE INJ 40 MG/4 ML VIAL IV PUSH ×2 (08:26→17:38)
[2025-08-19] MEDS: SOTALOL HCL 80 MG TABLET PO ×2 (08:27→20:25)
--- NOTE | 2025-08-19 14:06 | PM.IMPN2 ---
Assessment and Plan Assessment and Plan (1) Acute exacerbation of CHF (congestive heart failure): Code(s): I50.9 - Heart failure, unspecified Status: Acute Assessment and Plan: - BNP 2079 - furosemide 40 mg IVP b.i.d. - Follows Dr. Sorensen outpatient - monitor I&Os - trend renal function (2) Chronic obstructive pulmonary disease, unspecified: Code(s): J44.9 - Chronic obstructive pulmonary disease, unspecified Status: Acute Assessment and Plan: does not appear to be in acute exacerbation. Currently on baseline O2. - continue prednisone 10 mg p.o. daily- she reports blisters from prednisone requesting pulmonlogy to discuss alternatives will order consult as need to re establish as an outpt. 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 Follow-up surgeon at [facility] (6) Hyperlipidemia: Code(s): E78.5 - Hyperlipidemia, unspecified Status: Acute Assessment and Plan: Continue pravastatin Plan will add buspar low dose to help with anxiety Subjective Date/time seen: 08/19/25 14:06 Interval history: 75-year-old female with a past medical history of CHF, dm 2, HTN, COPD on home 2L O2, RLS, pulmonary hypertension, AFib, CAD HLD, GERD presents to the ED on 08/17/2025 with complaints increased shortness of breath. Patient had recent C-spine surgery posterior cervical decompression and fusion C2-6 at [facility] on 06/26/25 and required keep c-collar on for 3 months. Patient discharged from rehab facility to home on 08/12/2025. Patient's states they are waiting for home health care to contact them to start. patient states her increased dyspnea started 2 days prior to arrival but last night it would not let up. Also states she has had increasing lower extremity edema since returning home from rehab. Patient has been on supplemental O2 at 2 L per nasal cannula for the past 3 years. Denies chest pain, fever, abdominal pain. Per note from PCP dated 08/16/2025: - The patient had neck surgery for arthritis at [facility], after which she went to [facility] for rehabilitation. - While at rehab, she fell out of bed, which led to an admission to [facility] on July 07. - During hospitalization, she was treated for a urinary tract infection with IV antibiotics after her urine culture grew two types of bacteria. - Blood cultures for sepsis were negative. - She was monitored for pneumonia, with multiple chest x-rays showing fluid in the lungs, which her surgeon initially attributed to her post-surgical state. - A final chest x-ray on 07/21 showed worsening atelectasis. - A CT of the abdomen and pelvis showed possible colitis, and she experienced diarrhea, but stool cultures were negative for infection. Initial vital signs 154/74, HR 82, respirations 16, afebrile and 96% on 4 L nasal cannula. No leukocytosis on Hematology. Baseline anemia. VBG pH 7.349, pCO2 57.4, PO2 < 27, HC03 30.9 On 4 L nasal cannula. Potassium 2.9, carbon dioxide 32, creatinine 0.65, magnesium 1.3. Alk-phos 130. BNP 2080. EKG ectopic atrial tachycardia, left axis deviation, right bundle branch block. Chest x-ray reads mild diffuse consolidative changes in the left lung which may represent pneumonia and/or pulmonary edema. 08/18 pt is seen and examined. she is feeling somewhat anxious, does have anxiety. no other complains otherwise 08/19 anxiety is a lot better controlled now since buspar was started. breathing is better a little bit. Legs swelling still but had been in the chiar for a while with legs dangling, no compression stocking. noticed redness to left lower leg. Reports chronic lung problems and used to follow with pulm but did not have any recent lior. requesting to see pulm if possible while here. Review of Systems Review of Systems: All systems reviewed & are unremarkable except as noted in HPI and below Exam Narrative: GENERAL: non-toxic appearing, in no acute distress. HEAD: Normocephalic, atraumatic. collar in place for recent c spine surgery EYES: PERRLA. Conjunctivae clear. NOSE: Normal no drainage. THROAT: Pharynx clear, no exudate. NECK: Trachea midline. No adenopathy, no masses. RESPIRATORY: Airway patent, respirations nonlabored. Diminished bilaterally CARDIOVASCULAR: Regular rate and rhythm BREASTS: Defer GASTROINTESTINAL: Abdomen is soft and nontender. No organomegaly. Bowel sounds normal in all quadrants. GENITOURINARY: Defer MUSCULOSKELETAL: Moves all extremities. No gross deformities. +4 pitting edema bilateral extremities. SKIN: Warm, dry, normal color. Scabs scratching pattern noted to right posterior knee. redness to left lower leg, no open wounds NEURO: A&O X4. Speech clear PSYCHIATRIC; anxious Const: General: comfortable Objective Data Vital Signs Vital Signs: Vital Signs - 24 hr 08/18/25 14:27 08/18/25 20:00 08/18/25 20:37 Temperature 97.4 F L Pulse Rate 99 99 Respiratory Rate 20 20 Blood Pressure 129/64 Pulse Oximetry 98 98 Oxygen Delivery Nasal Cannula Nasal Cannula Oxygen Flow Rate 2 2 08/18/25 21:27 08/19/25 04:52 08/19/25 08:00 Temperature 97.6 F Pulse Rate 99 81 Respiratory Rate 18 Blood Pressure 108/51 L Pulse Oximetry 98 98 Oxygen Delivery Nasal Cannula Oxygen Flow Rate 2 08/19/25 08:27 08/19/25 14:00 Temperature 98.4 F Pulse Rate 94 100 Respiratory Rate 18 Blood Pressure 130/62 Pulse Oximetry 97 Oxygen Delivery Oxygen Flow Rate Intake/Output Intake/Output: Intake & Output 08/16/25 08/17/25 08/18/25 08/19/25 23:59 23:59 23:59 23:59 Intake Total 290 840 890 Output Total 800 2100 400 Balance -510 -1260 490 Meds/Results Medications: Active Medications Generic Name Dose Route Start Last Admin Trade Name Freq PRN Reason Stop Dose Admin Acetaminophen 500 mg 08/17/25 19:48 08/19/25 05:50 Acetaminophen 500 Mg Tablet PO 500 mg Q6H PRN Administration fever or pain rated 1-3 Buspirone HCl 2.5 mg 08/18/25 10:15 08/19/25 08:26 Buspirone Hcl 2.5 Mg Tablet PO 2.5 mg Q12HR IVONE Administration Dextrose 12.5 gm 08/17/25 19:53 Dextrose 50% 25 Gm/50 Ml Syringe IV PUSH PRN PRN Hypoglycemia Protocol Furosemide 40 mg 08/17/25 19:55 08/19/25 08:26 Furosemide Inj 40 Mg/4 Ml Vial IV PUSH 40 mg BID IVONE Administration Glucagon 1 mg 08/17/25 19:53 Glucagon For Inj 1 Mg Vial IM PRN PRN Hypoglycemia Protocol Glucose 15 gm 08/17/25 19:53 Glucose Oral Gel 15 Gm Of Glucse In 37.5 Gm Tube PO PRN PRN Hypoglycemia Protocol Dextrose 1,000 mls @ 100 mls/hr 08/17/25 19:53 Dextrose 5% 1,000 Ml IVPB PRN PRN Hypoglycemia Protocol Insulin Aspart 2 - 5 units 08/18/25 08:00 08/19/25 13:29 Insulin Aspart (*Bkc) 100 Units/Ml SUB-Q Not Given TIDWM IVONE Protocol Pantoprazole Sodium 40 mg 08/18/25 09:00 08/19/25 08:26 Pantoprazole 40 Mg Tablet PO 40 mg QAM IVONE Administration Potassium Chloride 40 meq 08/18/25 09:00 08/19/25 08:26 Potassium Chloride 20 Meq Packet (For Liquid) PO 40 meq DAILY IVONE Administration Pravastatin Sodium 10 mg 08/18/25 09:00 08/19/25 08:26 Pravastatin Sodium 10 Mg Tablet BY MOUTH 10 mg DAILY IVONE Administration Prednisone 10 mg 08/18/25 09:00 08/19/25 08:27 Prednisone 10 Mg Tablet PO 10 mg DAILY IVONE Administration Rivaroxaban 20 mg 08/17/25 19:55 08/18/25 17:56 Rivaroxaban 20 Mg Tablet PO 20 mg DAILY@1700 IVONE Administration Sotalol HCl 80 mg 08/17/25 21:00 08/19/25 08:27 Sotalol Hcl 80 Mg Tablet PO 80 mg Q12HR IVONE Administration Vitamin D 25 mcg 08/18/25 09:00 08/19/25 08:26 Cholecalciferol (Vitamin D3) 25 Mcg (1,000 Units) Tablet PO 25 mcg DAILY IVONE Administration Radiology Results: ITS Impressions Chest X-Ray 08/17/25 11:05 IMPRESSION: 1. Mild diffuse consolidative changes in the left lung which may represent pneumonia and/or pulmonary edema. Labs Labs: Laboratory Results - last 24 hr 08/18/25 08/18/25 08/19/25 16:59 20:41 07:23 POC Capillary Glucose 166 H 261 H 126 H 08/19/25 11:17 POC Capillary Glucose 185 H Quality VTE Prophylaxis VTE prophylaxis: pharmacologic ordered
[2025-08-19] MEDS: RIVAROXABAN 20 MG TABLET PO (17:38)
[2025-08-19] MEDS: INSULIN ASPART (*BKC) 100 UNITS/ML SUB-Q (17:38)
[2025-08-19] MEDS: PRAMIPEXOLE 0.5 MG TABLET PO (23:59)
[2025-08-20] VITALS (8 sets, daily range): BP systolic 126–135; BP diastolic 59–85; PULSE 88–101; RESP 16–20; TEMP 36.3–36.6; O2SAT 97–100
[2025-08-20 05:25] LABS: Hematocrit 28.9 % (37.0-47.0); Hemoglobin 8.1 g/dL (12.0-15.0); Mean Corpuscular HGB Conc 28.0 g/dl (32-36); Mean Corpuscular Hemoglobin 25.1 pg (26-34); Mean Corpuscular Volume 89.5 fl (80-100); Platelet Count Result 319 k/mm3 (150-375); Red Blood Count 3.23 M/mm3 (4.2-5.4); White Blood Count 8.9 K/mm3 (4.5-10.0)
[2025-08-20 05:44] LABS: Anion Gap 2 mmol/L (4-12); Blood Urea Nitrogen 16 mg/dL (7-17); Calcium 8.6 mg/dL (8.4-10.2); Carbon Dioxide 35 mmol/L (22-30); Chloride 96 mmol/L (98-107); Estimated CRCL calculation 49 ml/min; Estimated Glomerular Filt Rate > 60; Glucose 140 mg/dL (65-110); Potassium 3.1 mmol/L (3.4-5.0); Sodium 133 mmol/L (137-145)
[2025-08-20] MEDS: SOTALOL HCL 80 MG TABLET PO ×2 (08:35→20:51)
[2025-08-20] MEDS: PANTOPRAZOLE 40 MG TABLET PO (08:35)
[2025-08-20] MEDS: POTASSIUM CHLORIDE 20 MEQ PACKET (FOR LIQUID) 40 MEQ PO (08:35)
[2025-08-20] MEDS: busPIRone HCL 2.5 MG TABLET PO ×2 (08:37→20:51)
[2025-08-20] MEDS: FUROSEMIDE INJ 40 MG/4 ML VIAL IV PUSH ×2 (08:37→18:15)
[2025-08-20] MEDS: PRAVASTATIN SODIUM 10 MG TABLET BY MOUTH (08:37)
[2025-08-20] MEDS: CHOLECALCIFEROL (VITAMIN D3) 25 MCG (1,000 UNITS) TABLET PO (08:37)
--- NOTE | 2025-08-20 10:07 | P.PNIM_ITS ---
Assessment and Plan Assessment and Plan (1) Acute exacerbation of CHF (congestive heart failure): Code(s): I50.9 - Heart failure, unspecified Status: Acute Assessment and Plan: - BNP 2079 - furosemide 40 mg IVP b.i.d. - Follows Dr. Sorensen outpatient - monitor I&Os - trend renal function I/O reviewed compression stocking help as leg edema better today (2) Chronic obstructive pulmonary disease, unspecified: Code(s): J44.9 - Chronic obstructive pulmonary disease, unspecified Status: Acute Assessment and Plan: does not appear to be in acute exacerbation. Currently on baseline O2. - continue prednisone 10 mg p.o. daily- she reports blisters from prednisone requesting pulmonlogy to discuss alternatives will order consult as need to re establish as an outpt. - apnea link is ordered for tonight, will obtain abg 2l per nc Dr Wolf will see pt in am tomorrow (3) Paroxysmal atrial fibrillation: Code(s): I48.0 - Paroxysmal atrial fibrillation Status: Chronic Assessment and Plan: continue Betapace, Xarelto (4) Type 2 diabetes mellitus with diabetic nephropathy: Qualifiers: Diabetes mellitus snf insulin use: without snf use Qualified Code(s): E11.21 - Type 2 diabetes mellitus with diabetic nephropathy Code(s): E11.21 - Type 2 diabetes mellitus with diabetic nephropathy Status: Acute Assessment and Plan: - hypoglycemia protocol - POC blood glucose ACHS - correct regimen ordered: low-dose correctional scale (5) Cervical cord compression with myelopathy: Code(s): G95.20 - Unspecified cord compression Status: Chronic Assessment and Plan: Continue with cervical collar. Follow-up surgeon at [facility] (6) Hyperlipidemia: Code(s): E78.5 - Hyperlipidemia, unspecified Status: Acute Assessment and Plan: Continue pravastatin Plan will add buspar low dose to help with anxiety Medical Record Review I have reviewed the following patient records and this information was taken into consideration when formulating the assessment and plan.: previous labs Consultations Consultations: I have discussed the care of this pt with the consulting providers. (Care discussed with Dr Wolf) Time Spent With Patient Time with patient: Greater than 35 minutes Subjective Date/time seen: 08/20/25 10:07 Interval history: 75-year-old female with a past medical history of CHF, dm 2, HTN, COPD on home 2L O2, RLS, pulmonary hypertension, AFib, CAD HLD, GERD presents to the ED on 08/17/2025 with complaints increased shortness of breath. Patient had recent C- spine surgery posterior cervical decompression and fusion C2-6 at [facility] on 06/26/25 and required keep c-collar on for 3 months. Patient discharged from rehab facility to home on 08/12/2025. Patient's states they are waiting for home health care to contact them to start. patient states her increased dyspnea started 2 days prior to arrival but last night it would not let up. Also states she has had increasing lower extremity edema since returning home from rehab. Patient has been on supplemental O2 at 2 L per nasal cannula for the past 3 years. Denies chest pain, fever, abdominal pain. Per note from PCP dated 08/16/2025: - The patient had neck surgery for arthritis at [facility], after which she went to [facility] for rehabilitation. - While at rehab, she fell out of bed, which led to an admission to [facility] on July 07. - During hospitalization, she was treated for a urinary tract infection with IV antibiotics after her urine culture grew two types of bacteria. - Blood cultures for sepsis were negative. - She was monitored for pneumonia, with multiple chest x-rays showing fluid in the lungs, which her surgeon initially attributed to her post-surgical state. - A final chest x-ray on 07/21 showed worsening atelectasis. - A CT of the abdomen and pelvis showed possible colitis, and she experienced diarrhea, but stool cultures were negative for infection. Initial vital signs 154/74, HR 82, respirations 16, afebrile and 96% on 4 L nasal cannula. No leukocytosis on Hematology. Baseline anemia. VBG pH 7.349, pCO2 57.4, PO2 < 27, HC03 30.9 On 4 L nasal cannula. Potassium 2.9, carbon dioxide 32, creatinine 0.65, magnesium 1.3. Alk-phos 130. BNP 2080. EKG ectopic atrial tachycardia, left axis deviation, right bundle branch block. Chest x-ray reads mild diffuse consolidative changes in the left lung which may represent pneumonia and/or pulmonary edema. 08/18 pt is seen and examined. she is feeling somewhat anxious, does have anxiety. no other complains otherwise 08/19 anxiety is a lot better controlled now since buspar was started. breathing is better a little bit. Legs swelling still but had been in the chair for a while with legs dangling, no compression stocking. noticed redness to left lower leg. Reports chronic lung problems and used to follow with pulm but did not have any recent lior. requesting to see pulm if possible while here. 08/20 pt is seen and examined. swelling a bit better, breathing a lot better. at the bedisde, updated on plan of care. Review of Systems Review of Systems: All systems reviewed & are unremarkable except as noted in HPI and below Exam Narrative: GENERAL: non-toxic appearing, in no acute distress. HEAD: Normocephalic, atraumatic. collar in place for recent c spine surgery EYES: PERRLA. Conjunctivae clear. NOSE: Normal no drainage. THROAT: Pharynx clear, no exudate. NECK: Trachea midline. No adenopathy, no masses. RESPIRATORY: Airway patent, respirations nonlabored. Diminished bilaterally CARDIOVASCULAR: Regular rate and rhythm BREASTS: Defer GASTROINTESTINAL: Abdomen is soft and nontender. No organomegaly. Bowel sounds normal in all quadrants. GENITOURINARY: Defer MUSCULOSKELETAL: Moves all extremities. No gross deformities. +3 pitting edema bilateral extremities. compression stockings SKIN: Warm, dry, normal color. Scabs scratching pattern noted to right posterior knee. redness to left lower leg, no open wounds NEURO: A&O X4. Speech clear PSYCHIATRIC; anxious Const: General: comfortable Objective Data Vital Signs Vital Signs: Vital Signs - 24 hr 08/19/25 14:00 08/19/25 15:08 08/19/25 20:00 Temperature 98.4 F Pulse Rate 100 94 Respiratory Rate 18 16 Blood Pressure 130/62 Pulse Oximetry 97 98 Oxygen Delivery Nasal Cannula Nasal Cannula Oxygen Flow Rate 2 2 08/19/25 20:25 08/19/25 21:43 08/20/25 03:42 Temperature 97.7 F 97.3 F L Pulse Rate 112 H 94 88 Respiratory Rate 16 16 Blood Pressure 140/71 135/85 Pulse Oximetry 98 97 Oxygen Delivery Oxygen Flow Rate 08/20/25 08:35 Temperature Pulse Rate 101 H Respiratory Rate Blood Pressure Pulse Oximetry Oxygen Delivery Oxygen Flow Rate Intake/Output Intake/Output: Intake & Output 08/17/25 08/18/25 08/19/25 08/20/25 23:59 23:59 23:59 23:59 Intake Total 936 437 0052 210 Output Total 800 2100 875 400 Balance -510 -1260 495 -190 Meds/Results Medications: Active Medications Generic Name Dose Route Start Last Admin Trade Name Freq PRN Reason Stop Dose Admin Acetaminophen 500 mg 08/17/25 19:48 08/19/25 20:25 Acetaminophen 500 Mg Tablet PO 500 mg Q6H PRN Administration fever or pain rated 1-3 Buspirone HCl 2.5 mg 08/18/25 10:15 08/20/25 08:37 Buspirone Hcl 2.5 Mg Tablet PO 2.5 mg Q12HR IVONE Administration Dextrose 12.5 gm 08/17/25 19:53 Dextrose 50% 25 Gm/50 Ml Syringe IV PUSH PRN PRN Hypoglycemia Protocol Furosemide 40 mg 08/17/25 19:55 08/20/25 08:37 Furosemide Inj 40 Mg/4 Ml Vial IV PUSH 40 mg BID IVONE Administration Glucagon 1 mg 08/17/25 19:53 Glucagon For Inj 1 Mg Vial IM PRN PRN Hypoglycemia Protocol Glucose 15 gm 08/17/25 19:53 Glucose Oral Gel 15 Gm Of Glucse In 37.5 Gm Tube PO PRN PRN Hypoglycemia Protocol Dextrose 1,000 mls @ 100 mls/hr 08/17/25 19:53 Dextrose 5% 1,000 Ml IVPB PRN PRN Hypoglycemia Protocol Insulin Aspart 2 - 5 units 08/18/25 08:00 08/20/25 08:37 Insulin Aspart (*Bkc) 100 Units/Ml SUB-Q Not Given TIDWM IVONE Protocol Pantoprazole Sodium 40 mg 08/18/25 09:00 08/20/25 08:35 Pantoprazole 40 Mg Tablet PO 40 mg QAM IVONE Administration Potassium Chloride 40 meq 08/18/25 09:00 08/20/25 08:35 Potassium Chloride 20 Meq Packet (For Liquid) PO 40 meq DAILY IVONE Administration Pramipexole Dihydrochloride 0.5 mg 08/19/25 23:05 08/19/25 23:59 Pramipexole 0.5 Mg Tablet PO 0.5 mg HS IVONE Administration Pravastatin Sodium 10 mg 08/18/25 09:00 08/20/25 08:37 Pravastatin Sodium 10 Mg Tablet BY MOUTH 10 mg DAILY IVONE Administration Prednisone 10 mg 08/18/25 09:00 08/20/25 08:38 Prednisone 10 Mg Tablet PO Not Given DAILY IVONE Rivaroxaban 20 mg 08/17/25 19:55 08/19/25 17:38 Rivaroxaban 20 Mg Tablet PO 20 mg DAILY@1700 IVONE Administration Sotalol HCl 80 mg 08/17/25 21:00 08/20/25 08:35 Sotalol Hcl 80 Mg Tablet PO 80 mg Q12HR IVONE Administration Vitamin D 25 mcg 08/18/25 09:00 08/20/25 08:37 Cholecalciferol (Vitamin D3) 25 Mcg (1,000 Units) Tablet PO 25 mcg DAILY IVONE Administration Radiology Results: ITS Impressions Chest X-Ray 08/17/25 11:05 IMPRESSION: 1. Mild diffuse consolidative changes in the left lung which may represent pneumonia and/or pulmonary edema. Labs Labs: Laboratory Results - last 24 hr 08/19/25 08/19/25 08/19/25 11:17 16:19 21:35 WBC RBC Hgb Hct MCV MCH MCHC RDW Plt Count MPV Sodium Potassium Chloride Carbon Dioxide Anion Gap BUN Creatinine Estim Creat Clear Calc Estimated GFR Glucose POC Capillary Glucose 185 H 219 H 195 H Calcium 08/20/25 08/20/25 05:16 07:54 WBC 8.9 RBC 3.23 L Hgb 8.1 L Hct 28.9 L MCV 89.5 MCH 25.1 L MCHC 28.0 L RDW 18.1 H Plt Count 319 MPV 10.5 H Sodium 133 L Potassium 3.1 L Chloride 96 L Carbon Dioxide 35 H Anion Gap 2 L BUN 16 Creatinine 0.84 Estim Creat Clear Calc 49 Estimated GFR > 60 Glucose 140 H POC Capillary Glucose 137 H Calcium 8.6 Quality VTE Prophylaxis VTE prophylaxis: pharmacologic ordered
--- NOTE | 2025-08-20 10:32 | PCRCNOTE ---
ABG late due to pt using the bathroom.
[2025-08-20 12:01] LABS: Alveolar/Arterial O2 Gradient 51.9 mmHg; Fractional Inspired Oxygen 28 %; HCO3 ABG 31.2 mEq/l (22.0-26.0); Oxygen Content ABG 11.6 %vol (16.0-22.0); Oxygen Saturation ABG 96.9 % (95.0-100.0); PCO2 ABG 49.1 mmHg (35.0-45.0); PO2 ABG 89.8 mmHg (80.0-100.0); PO2 FiO2 Ratio Arterial Blood 3.21 %
[2025-08-20 12:03] LABS: Modified Allen's Test Pass; Site Drawn LEFT BRACHIAL
--- NOTE | 2025-08-20 12:53 | PCOTNOTE ---
Attempted to see patient this pm, however patient refused. Pt declined ADLs and stated, No, I don't want to do that. I'll be alright. Pt reported feeling tired. Offered to assist patient back to bed, however she wanted to stay in the chair at this time.
[2025-08-20] MEDS: RIVAROXABAN 20 MG TABLET PO (18:14)
[2025-08-20] MEDS: PRAMIPEXOLE 0.5 MG TABLET PO (20:51)
--- NOTE | 2025-08-20 20:55 | PC.NURSE ---
Patient alert and oriented x 3. C-Collar was ordered per surgeon at [facility] due to cervical spine precautions. Patient refused placement of C-Collar, stating that she doesnt want the C-Collar on. Education was provided regarding the purpose of C-Collar. Patient verbalized understanding and continued to refuse C-Collar.
[2025-08-21] VITALS (7 sets, daily range): BP systolic 121–125; BP diastolic 58–63; PULSE 92–118; RESP 14–20; TEMP 36.6–36.8; O2SAT 93–98
[2025-08-21 05:47] LABS: Hematocrit 25.7 % (37.0-47.0); Hemoglobin 7.5 g/dL (12.0-15.0); Mean Corpuscular HGB Conc 29.2 g/dl (32-36); Mean Corpuscular Hemoglobin 25.6 pg (26-34); Mean Corpuscular Volume 87.7 fl (80-100); Platelet Count Result 296 k/mm3 (150-375); Red Blood Count 2.93 M/mm3 (4.2-5.4); White Blood Count 9.6 K/mm3 (4.5-10.0)
[2025-08-21 06:07] LABS: Anion Gap 5 mmol/L (4-12); Blood Urea Nitrogen 13 mg/dL (7-17); Calcium 8.5 mg/dL (8.4-10.2); Carbon Dioxide 31 mmol/L (22-30); Chloride 96 mmol/L (98-107); Estimated CRCL calculation 60 ml/min; Estimated Glomerular Filt Rate > 60; Glucose 130 mg/dL (65-110); Potassium 3.2 mmol/L (3.4-5.0); Sodium 132 mmol/L (137-145)
[2025-08-21] MEDS: SOTALOL HCL 80 MG TABLET PO ×2 (09:19→20:17)
[2025-08-21] MEDS: CHOLECALCIFEROL (VITAMIN D3) 25 MCG (1,000 UNITS) TABLET PO (09:19)
[2025-08-21] MEDS: PRAVASTATIN SODIUM 10 MG TABLET BY MOUTH (09:19)
[2025-08-21] MEDS: busPIRone HCL 2.5 MG TABLET PO ×2 (09:19→20:17)
[2025-08-21] MEDS: POTASSIUM CHLORIDE 20 MEQ PACKET (FOR LIQUID) 40 MEQ PO (09:20)
[2025-08-21] MEDS: FUROSEMIDE INJ 40 MG/4 ML VIAL IV PUSH ×2 (09:20→16:34)
[2025-08-21] MEDS: PANTOPRAZOLE 40 MG TABLET PO (09:20)
--- NOTE | 2025-08-21 10:17 | PM.IMPN2 ---
Assessment and Plan Assessment and Plan (1) Acute exacerbation of CHF (congestive heart failure): Code(s): I50.9 - Heart failure, unspecified Status: Acute Assessment and Plan: - BNP 2079 - furosemide 40 mg IVP b.i.d. - Follows Dr. Sorensen outpatient - monitor I&Os - trend renal function I/O reviewed compression stocking help as leg edema better today diuresing carol K replacement but K is still low will order IV replacement x 1 (2) Chronic obstructive pulmonary disease, unspecified: Code(s): J44.9 - Chronic obstructive pulmonary disease, unspecified Status: Acute Assessment and Plan: does not appear to be in acute exacerbation. Currently on baseline O2. - continue prednisone 10 mg p.o. daily- she reports blisters from prednisone requesting pulmonlogy to discuss alternatives will order consult as need to re establish as an outpt. - apnea link is ordered for tonight, will obtain abg 2l per nc Dr Wolf will see pt in am tomorrow (3) Paroxysmal atrial fibrillation: Code(s): I48.0 - Paroxysmal atrial fibrillation Status: Chronic Assessment and Plan: continue Betapace, Xarelto (4) Type 2 diabetes mellitus with diabetic nephropathy: Qualifiers: Diabetes mellitus jail insulin use: without ad terminal makeup operator use Qualified Code(s): E11.21 - Type 2 diabetes mellitus with diabetic nephropathy Code(s): E11.21 - Type 2 diabetes mellitus with diabetic nephropathy Status: Acute Assessment and Plan: - hypoglycemia protocol - POC blood glucose ACHS - correct regimen ordered: low-dose correctional scale (5) Cervical cord compression with myelopathy: Code(s): G95.20 - Unspecified cord compression Status: Chronic Assessment and Plan: Continue with cervical collar. Follow-up surgeon at [facility] (6) Hyperlipidemia: Code(s): E78.5 - Hyperlipidemia, unspecified Status: Acute Assessment and Plan: Continue pravastatin (7) Sarcoid: Code(s): D86.9 - Sarcoidosis, unspecified Status: Acute Assessment and Plan: previous notes reviewed from DR Wolf: ....abnormal CT scan with upper lobe infiltrates and high calcium levels. Patient was seen by the Pulmonary team and she underwent biopsy. After the biopsy the Pulmonary team told the that she had sarcoid and that she required prednisone 10 mg a day to control her calcium she never had any f/u with pulm at [place] as she was hospitalized/in rehab Plan will add buspar low dose to help with anxiety Medical Record Review I have reviewed the following patient records and this information was taken into consideration when formulating the assessment and plan.: previous labs Time Spent With Patient Time with patient: 25 - 35 minutes Subjective Date/time seen: 08/21/25 10:17 Interval history: 75-year-old female with a past medical history of CHF, dm 2, HTN, COPD on home 2L O2, RLS, pulmonary hypertension, AFib, CAD HLD, GERD presents to the ED on 08/17/2025 with complaints increased shortness of breath. Patient had recent C-spine surgery posterior cervical decompression and fusion C2-6 at [facility] on 06/26/25 and required keep c-collar on for 3 months. Patient discharged from rehab facility to home on 08/12/2025. Patient's states they are waiting for home health care to contact them to start. patient states her increased dyspnea started 2 days prior to arrival but last night it would not let up. Also states she has had increasing lower extremity edema since returning home from rehab. Patient has been on supplemental O2 at 2 L per nasal cannula for the past 3 years. Denies chest pain, fever, abdominal pain. Per note from PCP dated 08/16/2025: - The patient had neck surgery for arthritis at [facility], after which she went to [facility] for rehabilitation. - While at rehab, she fell out of bed, which led to an admission to [facility] on July 07. - During hospitalization, she was treated for a urinary tract infection with IV antibiotics after her urine culture grew two types of bacteria. - Blood cultures for sepsis were negative. - She was monitored for pneumonia, with multiple chest x-rays showing fluid in the lungs, which her surgeon initially attributed to her post-surgical state. - A final chest x-ray on 07/21 showed worsening atelectasis. - A CT of the abdomen and pelvis showed possible colitis, and she experienced diarrhea, but stool cultures were negative for infection. Initial vital signs 154/74, HR 82, respirations 16, afebrile and 96% on 4 L nasal cannula. No leukocytosis on Hematology. Baseline anemia. VBG pH 7.349, pCO2 57.4, PO2 < 27, HC03 30.9 On 4 L nasal cannula. Potassium 2.9, carbon dioxide 32, creatinine 0.65, magnesium 1.3. Alk-phos 130. BNP 2080. EKG ectopic atrial tachycardia, left axis deviation, right bundle branch block. Chest x-ray reads mild diffuse consolidative changes in the left lung which may represent pneumonia and/or pulmonary edema. 08/18 pt is seen and examined. she is feeling somewhat anxious, does have anxiety. no other complains otherwise 08/19 anxiety is a lot better controlled now since buspar was started. breathing is better a little bit. Legs swelling still but had been in the chair for a while with legs dangling, no compression stocking. noticed redness to left lower leg. Reports chronic lung problems and used to follow with pulm but did not have any recent lior. requesting to see pulm if possible while here. 08/20 pt is seen and examined. swelling a bit better, breathing a lot better. at the bedside, updated on plan of care. 08/21 Pt is up in a chair, leg swelling is better. Breathing is at her baseline. She is to see DR Wolf today. Review of Systems Review of Systems: All systems reviewed & are unremarkable except as noted in HPI and below Exam Narrative: GENERAL: non-toxic appearing, in no acute distress. HEAD: Normocephalic, atraumatic. collar in place for recent c spine surgery EYES: PERRLA. Conjunctivae clear. NOSE: Normal no drainage. THROAT: Pharynx clear, no exudate. no mouth sores NECK: Trachea midline. No adenopathy, no masses. RESPIRATORY: Airway patent, respirations nonlabored. Diminished bilaterally CARDIOVASCULAR: Regular rate and rhythm BREASTS: Defer GASTROINTESTINAL: Abdomen is soft and nontender. No organomegaly. Bowel sounds normal in all quadrants. GENITOURINARY: Defer MUSCULOSKELETAL: Moves all extremities. No gross deformities. +2 pitting edema bilateral extremities. compression stockings SKIN: Warm, dry, normal color. Scabs scratching pattern noted to right posterior knee. redness to left lower leg, no open wounds NEURO: A&O X4. Speech clear PSYCHIATRIC; anxious Const: General: comfortable Objective Data Vital Signs Vital Signs: Vital Signs - 24 hr 08/20/25 14:00 08/20/25 20:00 08/20/25 20:51 Temperature 97.8 F Pulse Rate 90 91 91 Respiratory Rate 16 16 Blood Pressure 126/75 Pulse Oximetry 100 100 Oxygen Delivery Nasal Cannula Oxygen Flow Rate 2 Fraction of Inspired Oxygen 08/20/25 21:48 08/20/25 22:10 08/21/25 06:00 Temperature 97.8 F 98.2 F Pulse Rate 97 89 92 Respiratory Rate 16 20 14 Blood Pressure 130/59 L 121/58 L Pulse Oximetry 98 99 97 Oxygen Delivery Nasal Cannula Oxygen Flow Rate 2 Fraction of Inspired Oxygen 28 08/21/25 09:19 Temperature Pulse Rate 97 Respiratory Rate Blood Pressure Pulse Oximetry Oxygen Delivery Oxygen Flow Rate Fraction of Inspired Oxygen Intake/Output Intake/Output: Intake & Output 08/18/25 08/19/25 08/20/25 08/21/25 23:59 23:59 23:59 23:59 Intake Total 840 1370 930 480 Output Total 2100 875 1300 500 Balance -1260 495 -370 -20 Meds/Results Medications: Active Medications Generic Name Dose Route Start Last Admin Trade Name Freq PRN Reason Stop Dose Admin Acetaminophen 500 mg 08/17/25 19:48 08/19/25 20:25 Acetaminophen 500 Mg Tablet PO 500 mg Q6H PRN Administration fever or pain rated 1-3 Buspirone HCl 2.5 mg 08/18/25 10:15 08/21/25 09:19 Buspirone Hcl 2.5 Mg Tablet PO 2.5 mg Q12HR IVONE Administration Dextrose 12.5 gm 08/17/25 19:53 Dextrose 50% 25 Gm/50 Ml Syringe IV PUSH PRN PRN Hypoglycemia Protocol Furosemide 40 mg 08/17/25 19:55 08/21/25 09:20 Furosemide Inj 40 Mg/4 Ml Vial IV PUSH 40 mg BID IVONE Administration Glucagon 1 mg 08/17/25 19:53 Glucagon For Inj 1 Mg Vial IM PRN PRN Hypoglycemia Protocol Glucose 15 gm 08/17/25 19:53 Glucose Oral Gel 15 Gm Of Glucse In 37.5 Gm Tube PO PRN PRN Hypoglycemia Protocol Dextrose 1,000 mls @ 100 mls/hr 08/17/25 19:53 Dextrose 5% 1,000 Ml IVPB PRN PRN Hypoglycemia Protocol Insulin Aspart 2 - 5 units 08/18/25 08:00 08/21/25 09:16 Insulin Aspart (*Bkc) 100 Units/Ml SUB-Q Not Given TIDWM IVONE Protocol Pantoprazole Sodium 40 mg 08/18/25 09:00 08/21/25 09:20 Pantoprazole 40 Mg Tablet PO 40 mg QAM IVONE Administration Potassium Chloride 40 meq 08/18/25 09:00 08/21/25 09:20 Potassium Chloride 20 Meq Packet (For Liquid) PO 40 meq DAILY IVONE Administration Pramipexole Dihydrochloride 0.5 mg 08/19/25 23:05 08/20/25 20:51 Pramipexole 0.5 Mg Tablet PO 0.5 mg HS IVONE Administration Pravastatin Sodium 10 mg 08/18/25 09:00 08/21/25 09:19 Pravastatin Sodium 10 Mg Tablet BY MOUTH 10 mg DAILY IVONE Administration Prednisone 10 mg 08/18/25 09:00 08/21/25 09:19 Prednisone 10 Mg Tablet PO Not Given DAILY IVONE Rivaroxaban 20 mg 08/17/25 19:55 08/20/25 18:14 Rivaroxaban 20 Mg Tablet PO 20 mg DAILY@1700 IVONE Administration Sotalol HCl 80 mg 08/17/25 21:00 08/21/25 09:19 Sotalol Hcl 80 Mg Tablet PO 80 mg Q12HR IVONE Administration Vitamin D 25 mcg 08/18/25 09:00 08/21/25 09:19 Cholecalciferol (Vitamin D3) 25 Mcg (1,000 Units) Tablet PO 25 mcg DAILY IVONE Administration Radiology Results: ITS Impressions Chest X-Ray 08/17/25 11:05 IMPRESSION: 1. Mild diffuse consolidative changes in the left lung which may represent pneumonia and/or pulmonary edema. Labs Labs: Laboratory Results - last 24 hr 08/20/25 08/20/25 08/20/25 11:34 11:55 16:17 WBC RBC Hgb Hct MCV MCH MCHC RDW Plt Count MPV Puncture Site Left brachial ABG pH 7.421 ABG pCO2 49.1 H ABG pO2 89.8 ABG PO2/FiO2 Ratio 3.21 ABG HCO3 31.2 H ABG O2 Saturation 96.9 ABG O2 Content 11.6 L ABG Base Excess 6.0 A-a Gradient 51.9 Oxyhemoglobin 95.4 Total Hemoglobin 8.5 L O2 Delivery Device Not Reportable O2 Liters/Min Not Reportable FiO2 28 Sodium Potassium Chloride Carbon Dioxide Anion Gap BUN Creatinine Estim Creat Clear Calc Estimated GFR Glucose POC Capillary Glucose 154 H 160 H Calcium 08/20/25 08/21/25 08/21/25 21:52 05:39 07:59 WBC 9.6 RBC 2.93 L Hgb 7.5 L Hct 25.7 L MCV 87.7 MCH 25.6 L MCHC 29.2 L RDW 18.3 H Plt Count 296 MPV 10.7 H Puncture Site ABG pH ABG pCO2 ABG pO2 ABG PO2/FiO2 Ratio ABG HCO3 ABG O2 Saturation ABG O2 Content ABG Base Excess A-a Gradient Oxyhemoglobin Total Hemoglobin O2 Delivery Device O2 Liters/Min FiO2 Sodium 132 L Potassium 3.2 L Chloride 96 L Carbon Dioxide 31 H Anion Gap 5 BUN 13 Creatinine 0.67 L Estim Creat Clear Calc 60 Estimated GFR > 60 Glucose 130 H POC Capillary Glucose 218 H 129 H Calcium 8.5 Quality VTE Prophylaxis VTE prophylaxis: pharmacologic ordered
[2025-08-21 10:39] LABS: NT Pro B Type Natriuretic Pept 696 pg/mL (19.9-100)
[2025-08-21] MEDS: POTASSIUM CHLORIDE INJ 40 MEQ in SODIUM CHLORIDE 0.9% IV 500 ML 130 MEQ IVPB (11:28)
[2025-08-21] MEDS: ACETAMINOPHEN 500 MG TABLET PO (11:37)
--- NOTE | 2025-08-21 12:57 | PM.CNPUL ---
Assessment and Plan Assessment and plan (1) Sarcoid: Onset Date: 06/12/25 Code(s): D86.9 - Sarcoidosis, unspecified Status: Acute Assessment and Plan: Patient had chronic hypoxemia required 2 L nasal cannula 24-7 for 2-3 years. Patient with bilateral upper lobe infiltrates, hypercalcemia and a biopsy at [facility] on 06/12/2025 with noncaseating granulomas with scattered clusters of multinucleated giant cells with special stains negative for AFB and GMS. Patient was placed on prednisone 10 mg a day to control her hypercalcemia. 08/21/2025: Patient tells me she is breathing normally at rest. She had no dyspnea on exertion when walking to the bedside chair. She complains of being thirsty. She denies fever, chills, rigors. When I enter the room she was on 2 L nasal cannula saturations 99%. I decreased her to 1 L and her saturations were 97%. White blood cell count 9.6, creatinine 0.67. ABG yesterday on 2 L nasal cannula 7.42/49/90. Patient had an overnight oximetry on 2 L nasal cannula with recording duration of 6 hours and 58 minutes. Average saturation 98%. Low saturation 89%. Time with saturation less than or equal to 88% was 0 minutes. Oxygen desaturation index 4.1. There is no evidence of hypercarbic respiratory failure. I do not believe the patient is having an acute sarcoid exacerbation. Patient is refusing to take her prednisone. She took 10 mg on 08/19/2025 but none on 08/18/2025, 08/20/2025, or 08/21/2025. Her calcium is normal at 8.5 today and has been normal from 07/07/2025 onward. Plan: I will continue to monitor the patient off prednisone. I will order CT scan of the chest to assess her lung infiltrates. Agree to monitor patient off of antibiotics at this time. Patient with adequate oxygenation on 2 L nasal cannula at night and I will repeat in [facility] on 1 L nasal cannula at night. recommend Cardiology consult to exclude cardiac sarcoid. Patient tells me she has seen by an claim representative every 6 months and at her next visit they will mention to the claim representative that she has been diagnosed with sarcoid and should be evaluated to rule out ocular sarcoid. discussed with Rose Lanza, will follow with you (2) Acute exacerbation of CHF (congestive heart failure): Code(s): I50.9 - Heart failure, unspecified Status: Acute Assessment and Plan: Patient presents with fluid overload, increase pedal edema, difficulty laying flat. she has improved with Lasix 40 IV b.i.d. and with no antibiotics and no systemic steroids. Last echocardiogram on 07/11/2025 with LVEF 65-70, moderate concentric increased LV wall thickness with abnormal diastolic function. Right ventricular systolic function is reduced. RV size not well visualized. Mildly enlarged left atrium. Trace MR. Moderate TR with PASP of 60. 08/21/25: BNP has improved from 0 on 08/17/2025 to 696 today. Yesterday she is -370 mL. Cumulative she is minus 1.9 L since admission. Plan: Will recommend to hospitalist obtaining cardiology consult to assess for cardiac sarcoid as above. Patient is on sotalol andrivaroxaban for her AFib. History of Present Illness History of Present Illness Consult date: 08/21/25 Chief complaint: CHF Exacerbation Narrative: 08/21/2025: This is a new pulmonary consult for sarcoid. 75-year-old with a history of chronic mosaic attenuation since 2013 and with bilateral upper lobe septal thickening with nodular infiltrates since 12/21/24 with biopsy 06/12/2025 with noncaseating granulomas in scattered multinucleated giant cells, pulmonary hypertension, rheumatoid arthritis, polymyalgia rheumatica, CAD with CABG and mitral valve repair 02/27/2014, anemia, hyperlipidemia, hypertension, GERD, paroxysmal atrial fibrillation on rivaroxaban, PMR, TIA, dementia, cervical stenosis s/p posterior cervical decompression with fusion of C2-C6 at [facility] on 06/26/25. Regarding her sarcoid: CT scan 12/21/2024 with increased upper lobe nodular infiltrates and reticulations compared to 11/20/2024. Unchanged lower lobe mosaic attenuation. 11/20/22 to 11/24/22 she was hospitalized for pneumonia and hypoxemic respiratory failure.? CT angiogram 11/20/2022 demonstrated no pulmonary embolism, diffuse mosaic attenuation in all lung ruval[place] which was present on CT angiogram from 08/26/2022, CT abdomen on 07/09/2022, CTA on 06/26/2019, 12/21/2017 and mosiac attenuation had increased from 11/30/2013. Reports of high resolution CT scan and 04/18/2010 demonstrated improved infiltrates and mosaic attenuation. 07/10/25: I spoke to the . Patient was recently admitted to [facility] for 26 days (about 06/07/25 through 07/04/25). She was discharged to [facility] on 07/04/2025. During this hospitalization she had the above-mentioned cervical neck operation. In addition she had an abnormal CT scan with upper lobe infiltrates and high calcium levels. Patient was seen by the Pulmonary team and she underwent biopsy. On 06/12/2025 patient had a bronchoscopy at [facility]. This was performed for CT scan with numerous upper lobe nodules and concern for sarcoidosis. I have pathology reports from BAL and right upper lobe biopsies which demonstrated few noncaseating granulomas with scattered clusters of multinucleated giant cells special stains were negative for AFB and GMS. BAL was negative for malignancy.: Right upper lobe BAL: Side is pins and cell block: Negative for malignancy. After the biopsy the Pulmonary team told the that she had sarcoid and that she required prednisone 10 mg a day to control her calcium. The says that the patient never had respiratory distress but did have high carbon dioxide and she was transferred to the ICU for few days and required BiPAP mask treatment. After a few days she was transferred out of the ICU and did not wear the BiPAP any longer. The patient was discharged to [facility] on 2 L nasal cannula and the family was not told that she needed a BiPAP machine. The patient was supposed to be on prednisone 10 mg a day. Old data: 01/07/2023: PFTs Impression: There is a combined obstructive and restrictive ventilatory abnormality. There are no guidelines to assign the severity of obstruction and restriction with a combined abnormality. In my opinion, given the moderately concave expiratory flow tracing and normal FEV1: FVC ratio and moderate restrictive abnormality I would state there is a mild obstructive abnormality and a moderate restrictive abnormality resulting in a severely decreased FEV1. There is no significant improvement after inhaling a single dose of albuterol. The diffusing capacity unadjusted for hemoglobin and carboxyhemoglobin is moderately decreased and normalizes when adjusted for alveolar volume. 07/07/2025: CT scan of the chest showed bilateral right upper lobe greater than left upper lobe homogeneous reticulations with nodular infiltrates, small bilateral pleural effusions left greater than right, no change in her upper lobe or lower lobe mosaic attenuation from 12/21/2024. 07/07/2025 through 07/25/2025: Admitted to [facility] after a fall 3 days after being mid to [facility]. Patient also had respiratory distress and would it is admitted to the ICU and treated for COPD which she does not have, pulmonary hypertension, CHF, sarcoidosis and interstitial lung disease with steroids, bronchodilators, IV Lasix. She received broad-spectrum antibiotics for Enterobacter cloaca K and Proteus pending [place] in the urine. She had an ileus requiring an NG tube. Paroxysmal AFib with intermittent RVR, nd a pressure ulcer. She was discharged to rehabilitation on prednisone 10, Xarelto 20 q.day, Lasix 40 q.day. 07/25/2025 through 08/14/2025: Patient was admitted to rehabilitation. She was refusing BiPAP at night. Walking 150 ft. Recommended to use walker. Discharged on prednisone 10. Lasix 40 a day. Right her occiput and 20 q.day. Discharged on 2 L at rest and with activity and with sleep. weight on 08/02/2025 was 73.2 kg. 08/17/2025: Patient presented to the emergency room with shortness of breath, worsening leg swelling. 2 L nasal cannula saturation 97%. Blood pressure 137/80, respirations 16. Pulse 73. Crackles bilaterally. White blood cell count 9.5, creatinine 0.65. BNP was 2080. ABG on 4 L nasal cannula 7.35/57/ less than 27. Chest x-ray with consolidation and congestion. Patient was admitted and treated for fluid overload with IV Lasix. She was prescribed her Lasix 10 mg a day but only took this on 06/19 and refused it all others days because she thought this was causing her blisters on her back of her legs. Her weight was 77 kg. 08/21/2025: Patient tells me she is breathing normally at rest. She had no dyspnea on exertion when walking to the bedside chair. She complains of being thirsty. She denies fever, chills, rigors. When I enter the room she was on 2 L nasal cannula saturations 99%. I decreased her to 1 L and her saturations were 97%. White blood cell count 9.6, creatinine 0.67. BNP has improved from 0 on 08/17/2025 to 696 today. Yesterday she is -370 mL. Cumulative she is minus 1.9 L since admission. ABG yesterday on 2 L nasal cannula 7.. Patient had an overnight oximetry on 2 L nasal cannula with recording duration of 6 hours and 58 minutes. Average saturation 98%. Low saturation 89%. Time with saturation less than or equal to 88% was 0 minutes. Oxygen desaturation index 4.1. DATA: DATA: 07/17/25: overnight oximetry on 2 L with recording duration of 7 hours and 12 minutes, average saturation 94%, low saturation 84%, time with saturation less than or equal to 88% was 3 minutes, oxygen desaturation index 4.6. 07/11/25: Echo Summary 1. Definity contrast administered improved wall motion interpretation. 2. Left ventricular chamber dimension is normal. 3. Left ventricular systolic function is normal, estimated at 65-70. 4. There is moderate concentric increased left ventricular wall thickness. 5. The left ventricular diastolic function is abnormal. 6. E/e' 26 is significantly elevated. 7. Right ventricular systolic function is reduced based on an abnormal TAPSE 1.4 cm. 8. Left atrial chamber dimension is mildly enlarged. 9. There is moderate aortic valve sclerosis. 10. The mitral valve has a moderately calcified annulus. 11. There is trace mitral valve regurgitation. 12. There is moderate tricuspid valve regurgitation. 13. Severe pulmonary hypertension, estimated pulmonary arterial systolic pressure is 60 mmHg. 14. There is trace pulmonic regurgitation. Left Ventricle E/e' 26 is significantly elevated. Left ventricular chamber dimension is normal. Left ventricular systolic function is normal, estimated at 65-70. There is moderate concentric increased left ventricular wall thickness. The left ventricular diastolic function is abnormal. Definity contrast administered improved wall motion interpretation. Right Ventricle Right ventricular chamber dimension is not well visualized. Right ventricular systolic function is reduced based on an abnormal TAPSE 1.4 cm. Right Atria Right atrial chamber dimension is normal. 07/07/25: EXAMINATION: CT chest abdomen pelvis w con INDICATION: Fall. COMPARISON: Chest CT 12/21/2024 FINDINGS: CHEST CT: The lungs demonstrate smooth septal thickening. There are airspace opacities and nodules in the upper lobes. There are airspace opacities in left lower lobe. There is mild atelectasis in right lower lobe. A calcified right lung nodule is consistent with old granulomatous disease. There are small pleural effusions. The heart size is normal. There are changes of mitral valve replacement. There are coronary artery calcifications. No pericardial effusion. There is a total right shoulder arthroplasty. There are changes of anterior fusion procedure in cervical spine. There is moderate thoracic spondylosis. There is mild chronic anterior wedging of multiple vertebral bodies. ABDOMEN/PELVIS CT: The liver, gallbladder, spleen, pancreas, and adrenal glands are normal. There is cortical thinning of the kidneys. There is a 12 mm cyst in left kidney. There is wall thickening of the rectosigmoid. The appendix is normal. There are no dilated loops of bowel. There are no pathologically enlarged lymph nodes. There is no free intraperitoneal fluid. There is a benign bone island in the right femur. There is severe thoracic spondylosis. IMPRESSION: 1. Diffuse lung disease, likely a combination of pneumonia in the upper lobes and left lower lobe and mild pulmonary edema. 2. Small pleural effusions. 3. Colitis involving the rectosigmoid. 06/12/2025: Right upper lobe BAL: Side is pins and cell block: Negative for malignancy. Clinical Diagnosis and history. This is a 75-year-old woman with a history of COPD, coronary artery disease, chronic anemia who presented with neck pain and generalized weakness. CT chest numerous upper lobe nodules, concerning for sarcoidosis. 06/12/2025 lung, right upper lobe, biopsy: Few noncaseating granulomas and multinucleated giant cells. Microscopic description: Microscopic evaluation shows scant fragments of lung and bronchial tissue with few noncaseating granulomas and scattered clusters of multinucleated giant cells. Special stains for AFB and GMS are performed and are negative for acid-fast bacilli and fungal organisms, respectively. The staining controls are appropriately reactive. 12/21/24: EXAMINATION: CTA chest PE protocol INDICATION: Shortness of breath and hypoxia COMPARISON: 11/20/2022 and 08/26/2022 FINDINGS/OBSERVATIONS: PULMONARY ARTERIES: No filling defect is identified within the main or proximal pulmonary artery. The main pulmonary artery is not enlarged. THORACIC AORTA: No aneurysmal dilatation or dissection is present. The great vessels are intact LUNGS: Patchy groundglass opacification detected bilaterally, with a bilateral upper lobe distribution. MEDIASTINUM: No morphologically suspicious or pathologically enlarged lymph nodes are identified within the mediastinum or bilateral axilla. BONES OF THE CHEST: No acute fracture. No significant degenerative disease. No lytic or blastic lesions. Sternal wires are present. HEART: The heart is of normal size, without pericardial effusion. IMPRESSION: No pulmonary embolus. No thoracic aortic dissection. Patchy groundglass opacification with a bilateral upper lobe distribution. 01/07/2023: This is a pulmonary function test with pre and post-bronchodilator spirometry, plethysmography and diffusing capacity. The test was performed and results interpreted in accordance with the 2019 and 2005 ATS/ERS Task Force guidelines respectively using the Global Lung Function Initiative-2012 reference equations. Patient demonstrated good effort and cooperation. Reproducibility criteria were met. The quality of the pre bronchodilator spirometry maneuver was Grade A and post bronchodilator spirometry maneuver was Grade A. Findings: Spirometry: There is decreased maximal expiratory airflow at low lung volumes with concave expiratory flow tracing. The contour the inspiratory flow tracing is normal. The pre bronchodilator FVC was 1.09 L, 40% predicted. The pre bronchodilator FEV1 is 0.74 L, 35% predicted. The pre bronchodilator FEV1: FVC ratio is 68%. The post bronchodilator FVC is 1.12 L, representing a 2% increase. The post bronchodilator FEV1 is 0.74 L, representing is no change. The post bronchodilator FVC: FVC ratio 67%. Plethysmography: The total lung capacity is 3.22 L, 66% predicted. The functional residual capacity is 2.18 L, 78% predicted. The residual volume is 2.07 L, 97% predicted. Diffusing capacity: The diffusing capacity unadjusted for hemoglobin and carboxyhemoglobin is 9.3, 46% predicted. The diffusing capacity adjusted for alveolar volume is 4.47, 103% predicted. Impression: There is a combined obstructive and restrictive ventilatory abnormality. There are no guidelines to assign the severity of obstruction and restriction with a combined abnormality. In my opinion, given the moderately concave expiratory flow tracing and normal FEV1: FVC ratio and moderate restrictive abnormality I would state there is a mild obstructive abnormality and a moderate restrictive abnormality resulting in a severely decreased FEV1. There is no significant improvement after inhaling a single dose of albuterol. The diffusing capacity unadjusted for hemoglobin and carboxyhemoglobin is moderately decreased and normalizes when adjusted for alveolar volume. There are no prior studies for comparison 11/24/2022 Home O2 assessment - Patient requires no oxygen at rest and 4 with exercise. She had a negative PATRICIA panel in 2021. Echo 11/21/22 ? Summary 1. Complete two-dimensional, color flow and Doppler transthoracic echocardiogram is performed. 2. Left ventricular chamber dimension is normal. 3. Left ventricular systolic function is normal, estimated at 60-65%. 4. There is moderate concentric increased left ventricular wall thickness. 5. The left ventricular diastolic function is abnormal. 6. E/e' 28 is elevated. 7. Left atrial chamber dimension is moderately enlarged. 8. There is mild aortic valve sclerosis. 9. The mitral valve has mildly calcified leaflets and moderately calcified annulus. 10. There is trace mitral valve regurgitation. 11. There is mild tricuspid valve regurgitation. 12. Moderate pulmonary hypertension, estimated pulmonary arterial systolic pressure is 59 mmHg. 13. There is trace pulmonic regurgitation. 14. Dilated inferior vena cava with >50% collapse upon inspiration consistent with elevated right atrial pressure, 10 mmHg. 11/20/2022: EXAMINATION: CTA chest PE protocol INDICATION: Dyspnea. Recently treated for pneumonia. COMPARISON: 11/20/2022 2 view chest 08/26/2022 CT pulmonary scan FINDINGS: There is diagnostic contrast enhancement of the pulmonary arteries and no evidence of pulmonary embolism. There is old pulmonary granulomatous disease. Status post sternotomy and mitral valve replacement. Normal heart size. No thoracic aortic aneurysm. No hilar or mediastinal mass lesion or lymphadenopathy. There is patchy groundglass densities scattered throughout both lungs which may be due to small airways disease, atelectasis and/or pneumonia. Postoperative change of the lower cervical spine. Degenerative spurring of the thoracic spine. Right glenohumeral arthroplasty. IMPRESSION: No evidence of pulmonary embolus Scattered patchy groundglass infiltrates throughout both lungs which may be due to small airways disease, atelectasis and/or pneumonia 08/26/2022: EXAMINATION: CTA chest PE protocol DATE: 08/26/2022 11:23 INDICATION: Shortness of breath and hypoxia TECHNIQUE: Computed tomography angiography (CTA) of the chest was performed with 100 mL Omnipaque-350 intravenous contrast timed to evaluate the pulmonary arteries. Coronal maximum intensity projection 3D-reconstructions were created by the technologist. The dose-length product (DLP) was 621.73 mGy-cm. Automated exposure control and iterative reconstruction technique were employed. COMPARISON: 06/26/2019 FINDINGS: The pulmonary arteries are well-opacified. No pulmonary embolism is identified. There are airspace opacities of the lung apices. Chronic areas of air-trapping are noted throughout the lungs. No pleural effusion or pneumothorax. There are changes of coronary artery bypass grafting and mitral valve surgery. No pathologically enlarged thoracic lymph nodes are identified. The heart size is normal. There is moderate thoracic spondylosis. IMPRESSION: 1. No pulmonary embolus identified. 2. Minimal airspace opacities of the lung apices, likely infection/inflammation. 06/26/2019:EXAMINATION: CTA CHEST (PULMONARY ART) DATE: 06/26/2019 10:03 INDICATION: Shortness of breath. Hypoxia. Subtherapeutic INR. COMPARISON: 06/24/2019 2 view chest 12/21/2017 CTA chest FINDINGS: There is diagnostic contrast enhancement the pulmonary arteries and no evidence of pulmonary embolism. Normal heart size. Mitral valve replacement and sternotomy are noted. No thoracic aortic aneurysm or dissection. No hilar or mediastinal mass lesion or lymphadenopathy. There is right upper lobe patchy infiltrate. There are couple of areas of left lower lobe tree-in-bud infiltrate. Status post lower anterior cervical spine surgical fusion. There is degenerative disease of the cervical spine and diffuse idiopathic skeletal hyperostosis of the thoracic spine. IMPRESSION: No evidence of pulmonary embolism. Patchy right upper lobe and left lower lobe infiltrates 04/18/2010: CT chest without contrast History: Shortness of breath Technique: 5 mm slices in the axial plane and 1.25 mm high resolution slices. Comparison: CT from 01/24/10 Findings: The groundglass opacities in the lungs have substantially improved. Mild nodularity is present in the periphery of the lungs. The nodules are most numerous in the right middle lobe hand are centrilobular in distribution. The airways are patent. A calcified granuloma is present in the right lower lobe. Right hilar calcified lymph nodes are present. The heart size and aortic caliber are normal. Pulmonary vascularity is normal. No pneumothorax or plural effusions are present. The lymph nodes are subcentimeter. Degenerative changes are present in the cervical and thoracic spine. No interstitial thickeing or architectural distortion is present in the high resolution images. Impression: 1. Substantially improved bilateral airspace opacities. Bronchiolitis which is relatively greatest in the periphery of the right middle lobe. 12/21/2017: EXAMINATION: CTA CHEST (AORTA) NON CORONARY DATE: 12/21/17 INDICATION: Upper back pain. TECHNIQUE: Computed tomographic angiography (CTA) of the chest was performed without and with 100 mL Omnipaque-350 intravenous contrast. Volume-rendered 3D-reconstructions of the aorta and large arteries were constructed by the technologist on a separate workstation. Automated exposure control and iterative reconstruction technique were employed. The dose-length product was 586 mGy-cm. COMPARISON: None. FINDINGS: No mosaic attenuation in the lungs with similar appearance to the pulmonary vasculature in both the more dense and lucent regions of the lung which would favor air trapping and small artery disease over small vessel disease. Calcified nodule in the super segment of the right lower lobe and calcified right hilar lymph node consistent with old granulomatous disease. No pneumonia, pulmonary edema, pleural effusion or pneumothorax. No pulmonary embolism. Heart size is normal. Postoperative changes of prior median sternotomy with both coronary artery bypass grafting and mitral valve repair. No pericardial effusion. Thoracic aorta is normal in caliber with no dissection. No pathologically enlarged thoracic lymphadenopathy. Mild wall thickening the distal esophagus which could be seen with esophagitis. Anterior spinal fusion with anterior plate and screw fixation at C5-C6. Incompletely visualized right total shoulder arthroplasty. Moderate thoracic spondylosis with stable appearance of mild anterior wedging of several mid-lower thoracic vertebral bodies. IMPRESSION: 1. No acute cardiopulmonary disease or acute osseous abnormality. Specifically no aortic aneurysm or dissection. 2. Mild wall thickening in the distal esophagus which could be seen with esophagitis. 3. Mosaic attenuation in both lungs consistent with small airway disease and mild subsegmental air trapping. 4. Postoperative changes of prior median sternotomy, coronary artery bypass grafting, mitral valve repair, 11/30/2013: CT CHEST HIGH RESOLUTION W/O INDICATION: Shortness of breath, pulmonary hypertension. TECHNIQUE: Spiral CT of the chest was performed without intravenous contrast. Axial, coronal and sagittal images were reviewed. HRCT obtained. The exam was reviewed on 11/30/13. Correlation was made with pulmonary CT same date. FINDINGS: HRCT demonstrates no interlobular septal thickening to suggest interstitial lung disease. Interval improvement in the bilateral groundglass opacities involving all lobes with perihilar distribution, characteristic for pulmonary edema. There are smaller patchy more confluent opacifications in the right infrahilar region. Can't exclude pneumonia for these opacities. Pulmonary arteries are within normal size limits. Tracheobronchial tree is patent. There is no mediastinal, hilar or axillary lymphadenopathy. Again there is small pleural effusions. There is no pneumothorax. Heart normal in size. Upper abdomen is unremarkable. Mild thoracic spondylosis. There are no osteoblastic or osteolytic lesions identified. IMPRESSION: 1. Improving bilateral perihilar opacities, more likely pulmonary edema than infection. 2. Small bilateral pleural effusions, unchanged. 01/24/2010: CT scan of the chest. INDICATION: Shortness of breath TECHNIQUE: Routine contrast enhanced pulmonary CTA COMPARISON: Chest x-ray dated 01/24/10 FINDINGS: No thoracic lymph node enlargement. No pleural or pericardial abnormality's. No endobronchial lesions. Heart size normal. Normal filling of the pulmonary arteries with contrast without evidence for pulmonary embolism. Sequela of prior granulomatous infection noted in the lisa and right lower lobe. Bibasilar dependent atelectasis. Patchy bilateral groundglass opacities are identified. No suspicious pulmonary nodules or masses. IMPRESSION: 1: Patchy bilateral groundglass opacities are identified involving all lobes. Differential diagnosis includes atypical pneumonia (viral pneumonia and PCP) , chronic infiltrative lung disease (bronchiolitis, nonspecific interstitial pneumonitis, DIP ), acute airspace disease (pulmonary edema, hypersensitivity pneumonitis, eosinophilic pneumonia). Less likely considerations include bronchioloalveolar cell carcinoma. 2: No evidence for pulmonary embolism. Review of Systems Constitutional: Constitutional: Reports no additional constitutional complaints Eyes: Eyes: Reports no additional eye complaints ENT: Reports system reviewed and no additional complaints, except as documented Cardiovascular: Cardiovascular: Reports no additional cardiovascular complaints Respiratory: Respiratory: Reports no additional respiratory complaints Gastrointestinal: Gastrointestinal: Reports no additional gastrointestinal complaints Musculoskeletal: Musculoskeletal: Reports no additional musculoskeletal complaints Neurologic: Reports system reviewed and no additional complaints, except as documented Psychiatric: Psychiatric: Reports no additional psychiatric complaints Endocrine: Endocrine: Reports no additional endocrine complaints Hematologic/Lymphatic: Hematologic/Lymphatic: Reports no additional hematologic/lymphatic complaints Allergic/Immunologic: Allergic/Immunologic: Reports no additional allergic/immunologic complaints [facility] Past Medical History Medical History (Updated 08/21/25 @ 13:25 by Greg Wolf MD) Sarcoid (06/12/25) Rash due to allergy Cervical cord compression with myelopathy Diarrhea Preop cardiovascular exam Hard of hearing Eustachian tube dysfunction Cubital tunnel syndrome on right Pulmonary hypertension Chronic idiopathic myocarditis Restless leg syndrome 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 Chronic respiratory failure with hypoxia, on home oxygen therapy Transient ischemic attack Chronic hyponatremia Venous insufficiency Iron deficiency anemia Polymyalgia rheumatica Small vessel disease, cerebrovascular Chronic anticoagulation Paroxysmal atrial fibrillation Coronary artery disease Microscopic colitis Chronic diarrhea Exocrine pancreatic insufficiency COVID-19 Cervical arthritis Pneumonia Dyslipidemia Essential hypertension Gastro-esophageal reflux disease without esophagitis Multifocal atrial tachycardia Surgical History Surgical History History of heart artery stent History of cardiac catheterization History of bilateral knee replacement History of bilateral carpal tunnel release History of colonoscopy with polypectomy History of coronary artery bypass graft x 2 (12/2013) History of Achilles tendon repair History of spinal surgery Lumbar micro discectomy infusion. History of mitral valve repair History of shoulder surgery History of cataract extraction Left History of hand surgery trigger finger, thumb Family History Family History Mother Cerebrovascular accident Family history of diabetes mellitus in first degree relative Family history of coronary artery disease Acute myocardial infarction Diabetes mellitus Father Carcinoma of colon Family history of lung cancer Family history of malignant neoplasm of esophagus Sibling Liver disease Liver transplant recipient Other Family history of malignant neoplasm of brain Family history of malignant neoplasm of stomach Social History Social History Social History: Surrogate medical decision maker: Filippo Clifford, spouse. Code status: Full code. Smoking status: Former smoker Second hand tobacco smoke exposure: Yes Alcohol intake: never Drinks per week: 1 Alcohol use details: Rare alcohol use in moderation. Substance use: never Substance use type: does not use Lack of Transportation: No Lack of Food: Never True Current Housing: I Have Housing Concerned About Future Housing: No Difficulty Paying Gas/Electric Bills: No Difficulty Paying for Meds: No Currently Unemployed: No Education: Don't Know Difficulty w/ Childcare or Family Care: No Living arrangements: with family Additional living arrangements comments: Lives in [facility]. Occupation/Education: retired Additional occupation/education comments: Worked in [employer]. Spiritual care concerns: No Meds Home Medications and Allergies Home Medications ?Medication ?Instructions ?Recorded ?Confirmed ?Type arformoterol 15 mcg/2 mL solution See Rx Instructions .Route 06/16/24 08/17/25 Rx for nebulization .COMPLEX #30 ea Held on 08/11/25. Instructions: wait until see a PCP evolocumab 140 mg/mL subcutaneous 140 mg subcut .every 2 weeks #2 mL 11/10/24 08/17/25 Rx pen injector (Angelika Freeman) Held on 08/11/25. Instructions: wait until see a PCP pramipexole 0.5 mg tablet 0.5 mg PO HS #90 tabs 03/19/25 08/17/25 Rx Held on 08/11/25. Instructions: wait until see a PCP metformin 500 mg tablet,extended 1,000 mg (2 x 500 mg) PO QPM #90 05/22/25 08/17/25 Rx release 24 hr tabs Held on 08/11/25. Instructions: wait until see a PCP cholecalciferol (vitamin D3) 25 25 mcg PO DAILY 07/07/25 08/17/25 History mcg (1,000 unit) capsule (Vitamin D3) losartan 25 mg tablet 25 mg PO DAILY 07/07/25 08/17/25 History Held on 08/11/25. Instructions: wait until see a PCP magnesium oxide 250 mg PO DAILY 07/07/25 08/17/25 History potassium chloride 10 mEq oral 20 meq PO DAILY 07/07/25 08/17/25 History packet (Pokonza) Held on 08/11/25. Instructions: wait until see a PCP acetaminophen 500 mg capsule 500 mg PO Q6H PRN fever or pain 07/24/25 08/17/25 History amlodipine 10 mg tablet 10 mg PO DAILY 07/24/25 08/17/25 History Held on 08/11/25. Instructions: wait until see a PCP biotin 5 mg capsule 5 mg PO DAILY 07/24/25 08/17/25 History Held on 08/11/25. Instructions: wait until see a PCP furosemide 40 mg tablet See Rx Instructions .Route 08/11/25 08/17/25 Rx .COMPLEX #30 tabs insulin glargine 100 unit/mL 6 unit (0.06 mL) subcut DAILY #10 08/11/25 08/17/25 Rx subcutaneous solution (Lantus mL U-100 Insulin) insulin lispro 100 unit/mL 3 unit (0.03 mL) subcut TID #10 mL 08/11/25 08/17/25 Rx subcutaneous solution (Humalog U-100 Insulin) pantoprazole 40 mg tablet,delayed 40 mg PO QAM #30 tabs 08/11/25 08/17/25 Rx release potassium chloride 20 mEq oral 40 meq PO DAILY 7 days #14 ea 08/11/25 08/17/25 Rx packet pravastatin 10 mg tablet See Rx Instructions .Route 08/11/25 08/17/25 Rx .COMPLEX #30 tabs prednisone 10 mg tablet 10 mg PO DAILY 30 days #30 tabs 08/11/25 08/17/25 Rx rivaroxaban 20 mg tablet See Rx Instructions .Route 08/11/25 08/17/25 Rx .COMPLEX #30 tabs simethicone 80 mg chewable tablet 80 mg PO QID PRN Abdominal 08/11/25 08/17/25 Rx Cramping #0 tabs sotalol 80 mg tablet 80 mg PO Q12HR 30 days #60 tabs 08/11/25 08/17/25 Rx blood sugar diagnostic (Accu-Chek #100 ea 08/16/25 08/17/25 Rx Guide test strips) blood-glucose meter (Accu-Chek #1 ea 08/16/25 08/17/25 Rx Guide Me Glucose Meter) lancets (Accu-Chek Softclix #200 ea 08/16/25 08/17/25 Rx Lancets) Allergies Allergy/AdvReac Type Severity Reaction Status Date / Time ciprofloxacin Allergy Mild Unknown Verified 08/17/25 14:15 levofloxacin Allergy Unknown Unknown Verified 08/17/25 14:15 lisinopril Allergy Unknown Unknown Verified 08/17/25 14:15 amoxicillin (From Augmentin) AdvReac Severe Confusion Verified 08/17/25 14:15 clavulanic acid (From AdvReac Severe Confusion Verified 08/17/25 14:15 Augmentin) codeine AdvReac Mild Vomiting Verified 08/17/25 14:15 prednisone AdvReac Mild Rash Verified 08/17/25 14:15 tramadol AdvReac Mild Vomiting Verified 08/17/25 14:15 Vital Signs Vital Signs - 24 hr 08/20/25 14:00 08/20/25 20:00 08/20/25 20:51 Temperature 36.6 C Pulse Rate 90 91 91 Respiratory Rate 16 16 Blood Pressure 126/75 Pulse Oximetry 100 100 Oxygen Delivery Nasal Cannula Oxygen Flow Rate 2 Fraction of Inspired Oxygen 08/20/25 21:48 08/20/25 22:10 08/21/25 06:00 Temperature 36.6 C 36.8 C Pulse Rate 97 89 92 Respiratory Rate 16 20 14 Blood Pressure 130/59 L 121/58 L Pulse Oximetry 98 99 97 Oxygen Delivery Nasal Cannula Oxygen Flow Rate 2 Fraction of Inspired Oxygen 28 08/21/25 08:00 08/21/25 09:19 Temperature Pulse Rate 97 Respiratory Rate Blood Pressure Pulse Oximetry 98 Oxygen Delivery Nasal Cannula Oxygen Flow Rate 2 Fraction of Inspired Oxygen 28 Exam Const: General: cooperative, healthy appearing and comfortable Orientation/consciousness: oriented to person, oriented to place and oriented to time HENMT: Head: normal to inspection Ears: hearing grossly normal bilaterally Eyes: General: appearance normal, both eyes and all related structures Neck: Neck: normal visual inspection Chest: Chest palpation & inspection: normal inspection of the chest Resp: Effort & Inspection: normal respiratory effort and able to speak in complete sentences Auscultation: no crackles, no rales, no rhonchi, no wheezes and lung sounds not diminished Cardio: Jugular venous distension: no JVD GI: Inspection: normal to inspection GI Palp: No abdominal tenderness Skin: General skin exam: normal color Neuro: General: oriented to person, oriented to place and oriented to time Extrem: General: normal to inspection and edema Psych: Appearance: grossly normal Results Laboratory Findings 08/21/25 05:39 08/21/25 05:39 ABG, PT/INR, D-dimer: ABG ABG pH 7.421 (7.350-7.450) 08/20/25 11:55 ABG pCO2 49.1 mmHg (35.0-45.0) H 08/20/25 11:55 ABG pO2 89.8 mmHg (80.0-100.0) 08/20/25 11:55 ABG O2 Saturation 96.9 % (95.0-100.0) 08/20/25 11:55 Abnormal lab findings: Abnormal Labs 08/17/25 08/17/25 08/18/25 10:44 20:21 04:52 RBC 3.14 L Hgb 8.1 L Hct 27.3 L MCH 25.8 L MCHC 29.7 L RDW 18.0 H MPV Immature Gran % (Auto) 1.9 H Lymph % (Auto) 13.3 L Frederick % (Auto) 12.1 H Frederick # (Auto) 1.1 H Abs Immat Gran (auto) 0.18 H Absolute Neuts (auto) ABG pCO2 ABG HCO3 ABG O2 Content VBG pCO2 57.4 H VBG pO2 < 27.0 L VBG HCO3 30.9 H Total Hemoglobin Sodium 134 L 133 L Potassium 2.9 L Chloride Carbon Dioxide 32 H Anion Gap Creatinine 0.65 L 0.68 L Glucose POC Capillary Glucose 188 H Magnesium 1.3 L Alkaline Phosphatase 130 H NT-Pro-B Natriuret Pep 2080 H Total Protein 5.8 L Albumin 3.2 L 08/18/25 08/18/25 08/18/25 06:17 11:49 16:59 RBC 3.14 L Hgb 7.9 L Hct 27.8 L MCH 25.2 L MCHC 28.4 L RDW 18.0 H MPV 10.7 H Immature Gran % (Auto) 1.4 H Lymph % (Auto) 10.8 L Frederick % (Auto) 12.5 H Frederick # (Auto) 1.2 H Abs Immat Gran (auto) 0.14 H Absolute Neuts (auto) 7.1 H ABG pCO2 ABG HCO3 ABG O2 Content VBG pCO2 VBG pO2 VBG HCO3 Total Hemoglobin Sodium Potassium Chloride Carbon Dioxide Anion Gap Creatinine Glucose POC Capillary Glucose 347 H 166 H Magnesium Alkaline Phosphatase NT-Pro-B Natriuret Pep Total Protein Albumin 08/18/25 08/19/25 08/19/25 20:41 07:23 11:17 RBC Hgb Hct MCH MCHC RDW MPV Immature Gran % (Auto) Lymph % (Auto) Frederick % (Auto) Frederick # (Auto) Abs Immat Gran (auto) Absolute Neuts (auto) ABG pCO2 ABG HCO3 ABG O2 Content VBG pCO2 VBG pO2 VBG HCO3 Total Hemoglobin Sodium Potassium Chloride Carbon Dioxide Anion Gap Creatinine Glucose POC Capillary Glucose 261 H 126 H 185 H Magnesium Alkaline Phosphatase NT-Pro-B Natriuret Pep Total Protein Albumin 08/19/25 08/19/25 08/20/25 16:19 21:35 05:16 RBC 3.23 L Hgb 8.1 L Hct 28.9 L MCH 25.1 L MCHC 28.0 L RDW 18.1 H MPV 10.5 H Immature Gran % (Auto) Lymph % (Auto) Frederick % (Auto) Frederick # (Auto) Abs Immat Gran (auto) Absolute Neuts (auto) ABG pCO2 ABG HCO3 ABG O2 Content VBG pCO2 VBG pO2 VBG HCO3 Total Hemoglobin Sodium 133 L Potassium 3.1 L Chloride 96 L Carbon Dioxide 35 H Anion Gap 2 L Creatinine Glucose 140 H POC Capillary Glucose 219 H 195 H Magnesium Alkaline Phosphatase NT-Pro-B Natriuret Pep Total Protein Albumin 08/20/25 08/20/25 08/20/25 07:54 11:34 11:55 RBC Hgb Hct MCH MCHC RDW MPV Immature Gran % (Auto) Lymph % (Auto) Frederick % (Auto) Frederick # (Auto) Abs Immat Gran (auto) Absolute Neuts (auto) ABG pCO2 49.1 H ABG HCO3 31.2 H ABG O2 Content 11.6 L VBG pCO2 VBG pO2 VBG HCO3 Total Hemoglobin 8.5 L Sodium Potassium Chloride Carbon Dioxide Anion Gap Creatinine Glucose POC Capillary Glucose 137 H 154 H Magnesium Alkaline Phosphatase NT-Pro-B Natriuret Pep Total Protein Albumin 08/20/25 08/20/25 08/21/25 16:17 21:52 05:39 RBC 2.93 L Hgb 7.5 L Hct 25.7 L MCH 25.6 L MCHC 29.2 L RDW 18.3 H MPV 10.7 H Immature Gran % (Auto) Lymph % (Auto) Frederick % (Auto) Frederick # (Auto) Abs Immat Gran (auto) Absolute Neuts (auto) ABG pCO2 ABG HCO3 ABG O2 Content VBG pCO2 VBG pO2 VBG HCO3 Total Hemoglobin Sodium 132 L Potassium 3.2 L Chloride 96 L Carbon Dioxide 31 H Anion Gap Creatinine 0.67 L Glucose 130 H POC Capillary Glucose 160 H 218 H Magnesium Alkaline Phosphatase NT-Pro-B Natriuret Pep 696 H Total Protein Albumin 08/21/25 08/21/25 07:59 11:44 RBC Hgb Hct MCH MCHC RDW MPV Immature Gran % (Auto) Lymph % (Auto) Frederick % (Auto) Frederick # (Auto) Abs Immat Gran (auto) Absolute Neuts (auto) ABG pCO2 ABG HCO3 ABG O2 Content VBG pCO2 VBG pO2 VBG HCO3 Total Hemoglobin Sodium Potassium Chloride Carbon Dioxide Anion Gap Creatinine Glucose POC Capillary Glucose 129 H 161 H Magnesium Alkaline Phosphatase NT-Pro-B Natriuret Pep Total Protein Albumin Diagnostic Findings Additional studies: ITS Impressions Chest X-Ray 08/17/25 11:05 IMPRESSION: 1. Mild diffuse consolidative changes in the left lung which may represent pneumonia and/or pulmonary edema.
--- NOTE | 2025-08-21 16:10 | PM.CNCAR ---
Assessment and Plan Assessment and plan (1) Sarcoid: Onset Date: 06/12/25 Code(s): D86.9 - Sarcoidosis, unspecified Status: Acute Assessment and Plan: Confirmed on lung biopsy. On Prednisone. To define if it involves the heart, would need cardiac MRI. I don't think this would size changer. If it causes systolic dysfunction or heart block in the future then will treat those entities. (2) Acute exacerbation of CHF (congestive heart failure): Code(s): I50.9 - Heart failure, unspecified Status: Acute Assessment and Plan: Acute on chronic diastolic HF. 07/11/25 Echo: EF 65-70%, mod LVH, diastolic dysfunction with E/e' 26, mild LAE, mod MAC, trace MR, mod TR, RVSP 60 mmHg, trace PI. Restrict fluid to 1-1.5 l/day. On Lasix 40 mg IV BID and at home she was on 40 mg PO daily. Start Spironolactone 25 mg daily as her potassium is low. (3) Paroxysmal atrial fibrillation: Code(s): I48.0 - Paroxysmal atrial fibrillation Status: Chronic Assessment and Plan: On Sotalol and Xarelto. 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 (5) Essential hypertension: Code(s): I10 - Essential (primary) hypertension Status: Acute Assessment and Plan: Stable. (6) Dyslipidemia: Code(s): E78.5 - Hyperlipidemia, unspecified Status: Acute Assessment and Plan: On Pravastatin. History of Present Illness History of Present Illness Consult date/time: 08/21/25 16:10 Reason For Visit: CHF Exacerbation Narrative: 75 yr old woman who is my regular cardiology patient presents to hospital due to sob. She has a history of pulm sarcoidosis, PAF, PAT, dyslipidemia (intolerant of Vascepa causing sob), CAD/CABG and MV repair, COPD, she had symptoms of Covid in Aug 2020 while in [place]. is at beside. States she came back in to hospital due to sob. Her breathing is better now, and has edema of legs. She drinks more than 2 l/day of fluids. She had lung biopsied at [facility] which confirmed sarcoidosis. She is on oxygen NC 1 l/m now and looks comfortable and no sob. Previously, stated she had weakness to both legs due to arthritis of lower back and possibly PMR in Oct 2021 and can walk short distances. Denies chest pain, orthopnea, PND, dizziness, palpitations. Cardiovascular Procedures [employer] K[employer]:: 02/27/14 CABG: CABG x 2 vessels (SVG to Diag and SVG to RCA) with concomitant MV repair at [facility]. 12/01/13 Cardiac cath: PCI with TARA to OM1 for NSTEMI. Echo/MUGA:: 11/21/22 Echo: EF 60-65%, diastolic dysfunction (E/e '28), mod LAE, mod MAC, trace MR/PI, mild TR, RVSP 59 mmHg. 06/12/22 Echo: EF 60-65%, mild LAE, mitral valve repair, mod MAC, mod MV calcifications, consider mod MS(1.1 cm2), trace MR. 06/25/19 Echo EF 65%, diastolic dysfunction (E/e' 35), mild LAE, mod MAC, trace TR, evidence of mitral valve repair. Electrophysiology:: 05/05/24 EKG: Sinus tachycardia at 104 bpm, PAC, IRBBB, QTc 402 ms. 05/08/23 EKG: Sinus tachycardia at 107 bpm, PAC, IRBBB, low voltage in precordial leads. 12/09/22 EKG: Sinus tachycardia at 104 bpm, PAC's, IRBBB, QTc 397 ms. 11/21/22 EKG: Sinus tachycardia at 108 bpm, PAC and PVC. 01/03/22 EKG: Sinus rhythm at 72 bpm with frequent PAC's, QTc 391 ms. 03/09/21 EKG: Sinus rhythm at 62 bpm. 01/15/21 EKG: Sinus rhythm at 86 bpm, supraventricular bigeminy, QTc 409 ms. 06/07/20 EKG: Sinus tachycardia at 102 bpm, PAC, QTc 388 ms. 07/05/19 EKG: Sinus rhythm at 86 bpm, QTc 389 ms. 12/31/18 EKG: Sinus rhythm at 84 bpm, first degree AV block, QTc 404 ms. 06/29/17 EKG: MAT at 113 bpm, QTc 392 ms. Stress Tests:: 06/12/22 Lexiscan myoview: negative for ischemia. 09/18/15 Lexiscan myoview: Negative for ischemia. 12/22/24 CTA chest: No pulm embolism. Patchy groundglass opacity of bilateral upper lobes. 05/08/23 Venous duplex: NO DVT of both legs. Review of Systems Review of Systems: All systems reviewed & are unremarkable except as noted in HPI and below Constitutional: Constitutional: Reports as per HPI, Denies chills and Denies fever(s) Cardiovascular: Cardiovascular: Reports as per HPI, Denies chest pain, Reports irregular heart rhythm and Reports dyspnea Respiratory: Respiratory: Reports as per HPI and Reports dyspnea Gastrointestinal: Gastrointestinal: Reports as per HPI and Denies abdominal pain Genitourinary: Genitourinary: Reports as per HPI and Denies dysuria Musculoskeletal: Musculoskeletal: Reports as per HPI Neurologic: Reports as per HPI, Denies dizziness and Denies syncope [facility] Past Medical History Medical History (Updated 08/21/25 @ 13:25 by Greg Wolf MD) Sarcoid (06/12/25) Rash due to allergy Cervical cord compression with myelopathy Diarrhea Preop cardiovascular exam Hard of hearing Eustachian tube dysfunction Cubital tunnel syndrome on right Pulmonary hypertension Chronic idiopathic myocarditis Restless leg syndrome 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 Chronic respiratory failure with hypoxia, on home oxygen therapy Transient ischemic attack Chronic hyponatremia Venous insufficiency Iron deficiency anemia Polymyalgia rheumatica Small vessel disease, cerebrovascular Chronic anticoagulation Paroxysmal atrial fibrillation Coronary artery disease Microscopic colitis Chronic diarrhea Exocrine pancreatic insufficiency COVID-19 Cervical arthritis Pneumonia Dyslipidemia Essential hypertension Gastro-esophageal reflux disease without esophagitis Multifocal atrial tachycardia Surgical History Surgical History History of heart artery stent History of cardiac catheterization History of bilateral knee replacement History of bilateral carpal tunnel release History of colonoscopy with polypectomy History of coronary artery bypass graft x 2 (12/2013) History of Achilles tendon repair History of spinal surgery Lumbar micro discectomy infusion. History of mitral valve repair History of shoulder surgery History of cataract extraction Left History of hand surgery trigger finger, thumb Family History Family History Mother Cerebrovascular accident Family history of diabetes mellitus in first degree relative Family history of coronary artery disease Acute myocardial infarction Diabetes mellitus Father Carcinoma of colon Family history of lung cancer Family history of malignant neoplasm of esophagus Sibling Liver disease Liver transplant recipient Other Family history of malignant neoplasm of brain Family history of malignant neoplasm of stomach Social History Social History Social History: Surrogate medical decision maker: Filippo Clifford, spouse. Code status: Full code. Smoking status: Former smoker Second hand tobacco smoke exposure: Yes Alcohol intake: never Drinks per week: 1 Alcohol use details: Rare alcohol use in moderation. Substance use: never Substance use type: does not use Lack of Transportation: No Lack of Food: Never True Current Housing: I Have Housing Concerned About Future Housing: No Difficulty Paying Gas/Electric Bills: No Difficulty Paying for Meds: No Currently Unemployed: No Education: Don't Know Difficulty w/ Childcare or Family Care: No Living arrangements: with family Additional living arrangements comments: Lives in [facility]. Occupation/Education: retired Additional occupation/education comments: Worked in [employer]. Spiritual care concerns: No Meds Home Medications and Allergies Home Medications ?Medication ?Instructions ?Recorded ?Confirmed ?Type arformoterol 15 mcg/2 mL solution See Rx Instructions .Route 06/16/24 08/17/25 Rx for nebulization .COMPLEX #30 ea Held on 08/11/25. Instructions: wait until see a PCP evolocumab 140 mg/mL subcutaneous 140 mg subcut .every 2 weeks #2 mL 11/10/24 08/17/25 Rx pen injector (Repatha SureClick) Held on 08/11/25. Instructions: wait until see a PCP pramipexole 0.5 mg tablet 0.5 mg PO HS #90 tabs 03/19/25 08/17/25 Rx Held on 08/11/25. Instructions: wait until see a PCP metformin 500 mg tablet,extended 1,000 mg (2 x 500 mg) PO QPM #90 05/22/25 08/17/25 Rx release 24 hr tabs Held on 08/11/25. Instructions: wait until see a PCP cholecalciferol (vitamin D3) 25 25 mcg PO DAILY 07/07/25 08/17/25 History mcg (1,000 unit) capsule (Vitamin D3) losartan 25 mg tablet 25 mg PO DAILY 07/07/25 08/17/25 History Held on 08/11/25. Instructions: wait until see a PCP magnesium oxide 250 mg PO DAILY 07/07/25 08/17/25 History potassium chloride 10 mEq oral 20 meq PO DAILY 07/07/25 08/17/25 History packet (Pokonza) Held on 08/11/25. Instructions: wait until see a PCP acetaminophen 500 mg capsule 500 mg PO Q6H PRN fever or pain 07/24/25 08/17/25 History amlodipine 10 mg tablet 10 mg PO DAILY 07/24/25 08/17/25 History Held on 08/11/25. Instructions: wait until see a PCP biotin 5 mg capsule 5 mg PO DAILY 07/24/25 08/17/25 History Held on 08/11/25. Instructions: wait until see a PCP furosemide 40 mg tablet See Rx Instructions .Route 08/11/25 08/17/25 Rx .COMPLEX #30 tabs insulin glargine 100 unit/mL 6 unit (0.06 mL) subcut DAILY #10 08/11/25 08/17/25 Rx subcutaneous solution (Lantus mL U-100 Insulin) insulin lispro 100 unit/mL 3 unit (0.03 mL) subcut TID #10 mL 08/11/25 08/17/25 Rx subcutaneous solution (Humalog U-100 Insulin) pantoprazole 40 mg tablet,delayed 40 mg PO QAM #30 tabs 08/11/25 08/17/25 Rx release potassium chloride 20 mEq oral 40 meq PO DAILY 7 days #14 ea 08/11/25 08/17/25 Rx packet pravastatin 10 mg tablet See Rx Instructions .Route 08/11/25 08/17/25 Rx .COMPLEX #30 tabs prednisone 10 mg tablet 10 mg PO DAILY 30 days #30 tabs 08/11/25 08/17/25 Rx rivaroxaban 20 mg tablet See Rx Instructions .Route 08/11/25 08/17/25 Rx .COMPLEX #30 tabs simethicone 80 mg chewable tablet 80 mg PO QID PRN Abdominal 08/11/25 08/17/25 Rx Cramping #0 tabs sotalol 80 mg tablet 80 mg PO Q12HR 30 days #60 tabs 08/11/25 08/17/25 Rx blood sugar diagnostic (Accu-Chek #100 ea 08/16/25 08/17/25 Rx Guide test strips) blood-glucose meter (Accu-Chek #1 ea 08/16/25 08/17/25 Rx Guide Me Glucose Meter) lancets (Accu-Chek Softclix #200 ea 08/16/25 08/17/25 Rx Lancets) Allergies Allergy/AdvReac Type Severity Reaction Status Date / Time ciprofloxacin Allergy Mild Unknown Verified 08/17/25 14:15 levofloxacin Allergy Unknown Unknown Verified 08/17/25 14:15 lisinopril Allergy Unknown Unknown Verified 08/17/25 14:15 amoxicillin (From Augmentin) AdvReac Severe Confusion Verified 08/17/25 14:15 clavulanic acid (From AdvReac Severe Confusion Verified 08/17/25 14:15 Augmentin) codeine AdvReac Mild Vomiting Verified 08/17/25 14:15 prednisone AdvReac Mild Rash Verified 08/17/25 14:15 tramadol AdvReac Mild Vomiting Verified 08/17/25 14:15 Vital Signs Vital Signs - 24 hr 08/20/25 20:00 08/20/25 20:51 08/20/25 21:48 Temperature 97.8 F Pulse Rate 91 91 97 Respiratory Rate 16 16 Blood Pressure 130/59 L Pulse Oximetry 100 98 Oxygen Delivery Nasal Cannula Oxygen Flow Rate 2 Fraction of Inspired Oxygen 08/20/25 22:10 08/21/25 06:00 08/21/25 08:00 Temperature 98.2 F Pulse Rate 89 92 Respiratory Rate 20 14 Blood Pressure 121/58 L Pulse Oximetry 99 97 98 Oxygen Delivery Nasal Cannula Nasal Cannula Oxygen Flow Rate 2 2 Fraction of Inspired Oxygen 28 28 08/21/25 09:19 Temperature Pulse Rate 97 Respiratory Rate Blood Pressure Pulse Oximetry Oxygen Delivery Oxygen Flow Rate Fraction of Inspired Oxygen Exam Const: General: cooperative, healthy appearing and comfortable Resp: Auscultation: no crackles, no rales, no rhonchi, no wheezes and diminished lung sounds Cardio: Rate: regular rate Rhythm: regular rhythm Heart sounds: no murmurs Peripheral pulses: dorsalis pedis present GI: GI Palp: No abdominal tenderness and Yes Soft to palpation Neuro: General: oriented to person, oriented to place and oriented to time Extrem: Right lower extremity: edema Left lower extremity: edema Other: Mild-mod edema of both legs Results Labs and Meds 08/21/25 05:39 08/21/25 05:39 Lab results: CBC 08/21/25 Range/Units 05:39 WBC 9.6 (4.5-10.0) K/mm3 RBC 2.93 L (4.2-5.4) M/mm3 Hgb 7.5 L (12.0-15.0) g/dL Hct 25.7 L (37.0-47.0) % Plt Count 296 (150-375) k/mm3 Comprehensive Metabolic Panel 08/21/25 Range/Units 05:39 Sodium 132 L (137-145) mmol/L Potassium 3.2 L (3.4-5.0) mmol/L Chloride 96 L (98-107) mmol/L Carbon Dioxide 31 H (22-30) mmol/L BUN 13 (7-17) mg/dL Creatinine 0.67 L (0.7-1.0) mg/dL Glucose 130 H (65-110) mg/dL Calcium 8.5 (8.4-10.2) mg/dL Intake and Output 08/21/25 08/21/25 08/21/25 07:59 15:59 23:59 Intake Total 240 480 Output Total 500 500 Balance -260 -20 Intake: Oral 240 480 Output: Catheter Urine 500 500 External/Condom 500 500 Other: Number of Bowel Movements Today 2 3
[2025-08-21] MEDS: RIVAROXABAN 20 MG TABLET PO (16:34)
--- NOTE | 2025-08-21 18:52 | PC.NURSE ---
Pt. refuses to wear C Collar after this RN educated the pt. about the importance of following instructions from the surgeon. Instructions state pt. should wear C Collar for 3 months after the surgery. Pt. stated I know
[2025-08-21] MEDS: PRAMIPEXOLE 0.5 MG TABLET PO (20:17)
[2025-08-22 05:09] LABS: Hematocrit 26.4 % (37.0-47.0); Hemoglobin 7.4 g/dL (12.0-15.0); Mean Corpuscular HGB Conc 28.0 g/dl (32-36); Mean Corpuscular Hemoglobin 24.3 pg (26-34); Mean Corpuscular Volume 86.8 fl (80-100); Platelet Count Result 293 k/mm3 (150-375); Red Blood Count 3.04 M/mm3 (4.2-5.4); White Blood Count 9.2 K/mm3 (4.5-10.0)
[2025-08-22 05:33] VITALS: BP 122/73; PULSE 91; RESP 18; TEMP 36.8; O2SAT 95
[2025-08-22 05:35] LABS: Anion Gap 2 mmol/L (4-12); Blood Urea Nitrogen 13 mg/dL (7-17); Calcium 8.6 mg/dL (8.4-10.2); Carbon Dioxide 37 mmol/L (22-30); Chloride 94 mmol/L (98-107); Estimated CRCL calculation 57 ml/min; Estimated Glomerular Filt Rate > 60; Glucose 153 mg/dL (65-110); Potassium 3.5 mmol/L (3.4-5.0); Sodium 133 mmol/L (137-145)
--- NOTE | 2025-08-22 07:02 | PC.NURSE ---
Patient refuses to wear C-Collar as ordered per surgeon at [facility] for 3 months, patient states she doesnt want to wear it.
--- NOTE | 2025-08-22 07:55 | P.PNCA_ITS ---
Progress Note: A&P Assessment and Plan (1) Sarcoid: Onset Date: 06/12/25 Code(s): D86.9 - Sarcoidosis, unspecified Status: Acute Assessment and Plan: Confirmed on lung biopsy. On Prednisone. To define if it involves the heart, would need cardiac MRI. I don't think this would change house attendant. If it causes systolic dysfunction or heart block in the future then will treat those entities. (2) Acute exacerbation of CHF (congestive heart failure): Code(s): I50.9 - Heart failure, unspecified Status: Acute Assessment and Plan: Acute on chronic diastolic HF. 07/11/25 Echo: EF 65-70%, mod LVH, diastolic dysfunction with E/e' 26, mild LAE, mod MAC, trace MR, mod TR, RVSP 60 mmHg, trace PI. Restrict fluid to 1-1.5 l/day. Intolerant of Jardiance due to yeast infection from it. Change Lasix 40 mg IV BID to Bumetanide 1 mg PO BID. Start Spironolactone 25 mg daily as her potassium was low. (3) Paroxysmal atrial fibrillation: Code(s): I48.0 - Paroxysmal atrial fibrillation Status: Chronic Assessment and Plan: Stable. On Sotalol and Xarelto. 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 (5) Essential hypertension: Code(s): I10 - Essential (primary) hypertension Status: Acute Assessment and Plan: Stable. (6) Dyslipidemia: Code(s): E78.5 - Hyperlipidemia, unspecified Status: Acute Assessment and Plan: On Pravastatin. Subjective Date/time seen: 08/22/25 07:55 Interval history: Reports some sob. No chest pains. Exam Const: General: cooperative, healthy appearing and comfortable Orientation/consciousness: oriented to person, oriented to place and oriented to time Resp: Auscultation: no crackles, no rales, no rhonchi, no wheezes and diminished lung sounds Cardio: Rate: regular rate Rhythm: regular rhythm Heart sounds: no murmurs Peripheral pulses: dorsalis pedis present Neuro: General: oriented to person, oriented to place and oriented to time Extrem: Right lower extremity: edema Left lower extremity: edema Other: Mild edema of both legs Objective Data Vital Signs Vital Signs: Vital Signs - 24 hr 08/21/25 08:00 08/21/25 09:19 08/21/25 20:00 Temperature Pulse Rate 97 98 Respiratory Rate 20 Blood Pressure Pulse Oximetry 98 93 Oxygen Delivery Nasal Cannula Nasal Cannula Oxygen Flow Rate 2 1 Fraction of Inspired Oxygen 28 24 08/21/25 20:17 08/21/25 20:46 08/21/25 21:11 Temperature 97.9 F Pulse Rate 118 H 98 Respiratory Rate 20 Blood Pressure 125/63 Pulse Oximetry 93 93 Oxygen Delivery Nasal Cannula Oxygen Flow Rate 1 Fraction of Inspired Oxygen 08/22/25 05:33 Temperature 98.2 F Pulse Rate 91 Respiratory Rate 18 Blood Pressure 122/73 Pulse Oximetry 95 Oxygen Delivery Oxygen Flow Rate Fraction of Inspired Oxygen Intake/Output Intake/Output: Intake & Output 08/19/25 08/20/25 08/21/25 08/22/25 23:59 23:59 23:59 23:59 Intake Total 9537 746 7154 120 Output Total 875 1300 1000 400 Balance 495 -370 200 -280 Meds/Results Medications: Active Medications Generic Name Dose Route Start Last Admin Trade Name Freq PRN Reason Stop Dose Admin Acetaminophen 500 mg 08/17/25 19:48 08/21/25 11:37 Acetaminophen 500 Mg Tablet PO 500 mg Q6H PRN Administration fever or pain rated 1-3 Bumetanide 1 mg 08/22/25 09:00 Bumetanide 1 Mg Tablet PO BID IVONE Buspirone HCl 2.5 mg 08/18/25 10:15 08/21/25 20:17 Buspirone Hcl 2.5 Mg Tablet PO 2.5 mg Q12HR IVONE Administration Dextrose 12.5 gm 08/17/25 19:53 Dextrose 50% 25 Gm/50 Ml Syringe IV PUSH PRN PRN Hypoglycemia Protocol Empagliflozin 10 mg 08/22/25 09:00 Empagliflozin 10 Mg Tablet PO DAILY IVONE Glucagon 1 mg 08/17/25 19:53 Glucagon For Inj 1 Mg Vial IM PRN PRN Hypoglycemia Protocol Glucose 15 gm 08/17/25 19:53 Glucose Oral Gel 15 Gm Of Glucse In 37.5 Gm Tube PO PRN PRN Hypoglycemia Protocol Dextrose 1,000 mls @ 100 mls/hr 08/17/25 19:53 Dextrose 5% 1,000 Ml IVPB PRN PRN Hypoglycemia Protocol Insulin Aspart 2 - 5 units 08/18/25 08:00 08/21/25 18:10 Insulin Aspart (*Bkc) 100 Units/Ml SUB-Q Not Given TIDWM [facility] Protocol Pantoprazole Sodium 40 mg 08/18/25 09:00 08/21/25 09:20 Pantoprazole 40 Mg Tablet PO 40 mg QAM IVONE Administration Potassium Chloride 40 meq 08/18/25 09:00 08/21/25 09:20 Potassium Chloride 20 Meq Packet (For Liquid) PO 40 meq DAILY IVONE Administration Pramipexole Dihydrochloride 0.5 mg 08/19/25 23:05 08/21/25 20:17 Pramipexole 0.5 Mg Tablet PO 0.5 mg HS IVONE Administration Pravastatin Sodium 10 mg 08/18/25 09:00 08/21/25 09:19 Pravastatin Sodium 10 Mg Tablet BY MOUTH 10 mg DAILY IVONE Administration Rivaroxaban 20 mg 08/17/25 19:55 08/21/25 16:34 Rivaroxaban 20 Mg Tablet PO 20 mg DAILY@1700 IVONE Administration Sotalol HCl 80 mg 08/17/25 21:00 08/21/25 20:17 Sotalol Hcl 80 Mg Tablet PO 80 mg Q12HR IVONE Administration Spironolactone 25 mg 08/22/25 09:00 Spironolactone 25 Mg Tablet PO QAM IVONE Vitamin D 25 mcg 08/18/25 09:00 08/21/25 09:19 Cholecalciferol (Vitamin D3) 25 Mcg (1,000 Units) Tablet PO 25 mcg DAILY IVONE Administration Radiology Results: ITS Impressions Chest X-Ray 08/17/25 11:05 IMPRESSION: 1. Mild diffuse consolidative changes in the left lung which may represent pneumonia and/or pulmonary edema. Chest CT 08/21/25 15:07 IMPRESSION: 1. Upper lobe predominant groundglass opacification with diffuse miliary nodules. Differential diagnosis in order for likelihood include atypical or opportunistic infection, hypersensitivity pneumonitis and inflammatory or granulomatous disease such as sarcoidosis. Diffuse metastatic disease less likely without known primary malignancy. 2: Small pleural effusions. 3: Borderline mediastinal lymphadenopathy which may be reactive. Labs Labs: Laboratory Results - last 24 hr 08/21/25 08/21/25 08/21/25 05:39 07:59 11:44 WBC RBC Hgb Hct MCV MCH MCHC RDW Plt Count MPV Sodium Potassium Chloride Carbon Dioxide Anion Gap BUN Creatinine Estim Creat Clear Calc Estimated GFR Glucose POC Capillary Glucose 129 H 161 H Calcium NT-Pro-B Natriuret Pep 696 H 08/21/25 08/21/25 08/22/25 17:14 20:50 05:00 WBC 9.2 RBC 3.04 L Hgb 7.4 L Hct 26.4 L MCV 86.8 MCH 24.3 L D MCHC 28.0 L RDW 18.0 H Plt Count 293 MPV 10.6 H Sodium 133 L Potassium 3.5 Chloride 94 L Carbon Dioxide 37 H Anion Gap 2 L BUN 13 Creatinine 0.70 Estim Creat Clear Calc 57 Estimated GFR > 60 Glucose 153 H POC Capillary Glucose 121 H 262 H Calcium 8.6 NT-Pro-B Natriuret Pep
[2025-08-22 09:13] VITALS: PULSE 100
[2025-08-22] MEDS: busPIRone HCL 2.5 MG TABLET PO ×2 (09:13→21:29)
[2025-08-22] MEDS: CHOLECALCIFEROL (VITAMIN D3) 25 MCG (1,000 UNITS) TABLET PO (09:13)
[2025-08-22] MEDS: SOTALOL HCL 80 MG TABLET PO ×2 (09:13→21:29)
[2025-08-22] MEDS: SPIRONOLACTONE 25 MG TABLET PO (09:15)
[2025-08-22] MEDS: PANTOPRAZOLE 40 MG TABLET PO (09:15)
[2025-08-22] MEDS: BUMETANIDE 1 MG TABLET PO ×2 (09:15→16:59)
[2025-08-22] MEDS: MAGNESIUM OXIDE 400 MG TABLET PO ×2 (09:15→16:59)
[2025-08-22] MEDS: PRAVASTATIN SODIUM 10 MG TABLET BY MOUTH (09:15)
[2025-08-22] MEDS: POTASSIUM CHLORIDE 20 MEQ PACKET (FOR LIQUID) 40 MEQ PO (09:15)
--- NOTE | 2025-08-22 09:39 | PM.IMPN2 ---
Assessment and Plan Assessment and Plan (1) Acute exacerbation of CHF (congestive heart failure): Code(s): I50.9 - Heart failure, unspecified Status: Acute Assessment and Plan: - BNP 2079 - furosemide 40 mg IVP b.i.d. - Follows Dr. Sorensen outpatient - monitor I&Os - trend renal function I/O reviewed compression stocking help as leg edema better today diuresing carol K replacement but K is still low will order IV replacement x 1 cardiology consulted: Acute on chronic diastolic HF. 07/11/25 Echo: EF 65-70%, mod LVH, diastolic dysfunction with E/e' 26, mild LAE, mod MAC, trace MR, mod TR, RVSP 60 mmHg, trace PI. Restrict fluid to 1-1.5 l/day. Intolerant of Jardiance due to yeast infection from it. Change Lasix 40 mg IV BID to Bumetanide 1 mg PO BID. Start Spironolactone 25 mg daily as her potassium was low. (2) Chronic obstructive pulmonary disease, unspecified: Code(s): J44.9 - Chronic obstructive pulmonary disease, unspecified Status: Acute Assessment and Plan: does not appear to be in acute exacerbation. Currently on baseline O2. - continue prednisone 10 mg p.o. 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 Follow-up surgeon at [facility] (6) Hyperlipidemia: Code(s): E78.5 - Hyperlipidemia, unspecified Status: Acute Assessment and Plan: Continue pravastatin (7) Sarcoid: Onset Date: 06/12/25 Code(s): D86.9 - Sarcoidosis, unspecified Status: Acute Assessment and Plan: previous notes reviewed from DR Wolf: ....abnormal CT scan with upper lobe infiltrates and high calcium levels. Patient was seen by the Pulmonary team and she underwent biopsy. After the biopsy the Pulmonary team told the that she had sarcoid and that she required prednisone 10 mg a day to control her calcium she never had any f/u with pulm at [place] as she was hospitalized/in rehab cardiology was consulted: Confirmed on lung biopsy. On Prednisone. To define if it involves the heart, would need cardiac MRI. I don't think this would case management specialist. If it causes systolic dysfunction or heart block in the future then will treat those entities. Plan will add buspar low dose to help with anxiety Subjective Date/time seen: 08/22/25 09:39 Interval history: 75-year-old female with a past medical history of CHF, dm 2, HTN, COPD on home 2L O2, RLS, pulmonary hypertension, AFib, CAD HLD, GERD presents to the ED on 08/17/2025 with complaints increased shortness of breath. Patient had recent C-spine surgery posterior cervical decompression and fusion C2-6 at [facility] on 06/26/25 and required keep c-collar on for 3 months. Patient discharged from rehab facility to home on 08/12/2025. Reports some sob. ON 1l per nc. Apnea link completed. Pt will need to be on 2l per nc at night. No chest pains. Cardiology saw her- no acute interventions now. Pt is progressing well. anticipate discharge tomorrow. Review of Systems Review of Systems: All systems reviewed & are unremarkable except as noted in HPI and below Exam Narrative: GENERAL: non-toxic appearing, in no acute distress. Up in a chair HEAD: Normocephalic, atraumatic. collar in place for recent c spine surgery EYES: PERRLA. Conjunctivae clear. NOSE: Normal no drainage. THROAT: Pharynx clear, no exudate. no mouth sores NECK: Trachea midline. No adenopathy, no masses. RESPIRATORY: Airway patent, respirations nonlabored. Diminished bilaterally CARDIOVASCULAR: Regular rate and rhythm BREASTS: Defer GASTROINTESTINAL: Abdomen is soft and nontender. No organomegaly. Bowel sounds normal in all quadrants. GENITOURINARY: Defer MUSCULOSKELETAL: Moves all extremities. No gross deformities. +2 pitting edema bilateral extremities. compression stockings SKIN: Warm, dry, normal color. Scabs scratching pattern noted to right posterior knee. redness to left lower leg, no open wounds NEURO: A&O X4. Speech clear PSYCHIATRIC; anxious Const: General: comfortable Objective Data Vital Signs Vital Signs: Vital Signs - 24 hr 08/21/25 20:00 08/21/25 20:17 08/21/25 20:46 Temperature 97.9 F Pulse Rate 98 118 H 98 Respiratory Rate 20 20 Blood Pressure 125/63 Pulse Oximetry 93 93 Oxygen Delivery Nasal Cannula Oxygen Flow Rate 1 Fraction of Inspired Oxygen 24 08/21/25 21:11 08/22/25 05:33 08/22/25 09:13 Temperature 98.2 F Pulse Rate 91 100 Respiratory Rate 18 Blood Pressure 122/73 Pulse Oximetry 93 95 Oxygen Delivery Nasal Cannula Oxygen Flow Rate 1 Fraction of Inspired Oxygen 24 Intake/Output Intake/Output: Intake & Output 08/19/25 08/20/25 08/21/25 08/22/25 23:59 23:59 23:59 23:59 Intake Total 8132 026 9279 120 Output Total 875 1300 1000 400 Balance 495 -370 200 -280 Meds/Results Medications: Active Medications Generic Name Dose Route Start Last Admin Trade Name Freq PRN Reason Stop Dose Admin Acetaminophen 500 mg 08/17/25 19:48 08/21/25 11:37 Acetaminophen 500 Mg Tablet PO 500 mg Q6H PRN Administration fever or pain rated 1-3 Bumetanide 1 mg 08/22/25 09:00 08/22/25 09:15 Bumetanide 1 Mg Tablet PO 1 mg BID IVONE Administration Buspirone HCl 2.5 mg 08/18/25 10:15 08/22/25 09:13 Buspirone Hcl 2.5 Mg Tablet PO 2.5 mg Q12HR IVONE Administration Dextrose 12.5 gm 08/17/25 19:53 Dextrose 50% 25 Gm/50 Ml Syringe IV PUSH PRN PRN Hypoglycemia Protocol Glucagon 1 mg 08/17/25 19:53 Glucagon For Inj 1 Mg Vial IM PRN PRN Hypoglycemia Protocol Glucose 15 gm 08/17/25 19:53 Glucose Oral Gel 15 Gm Of Glucse In 37.5 Gm Tube PO PRN PRN Hypoglycemia Protocol Dextrose 1,000 mls @ 100 mls/hr 08/17/25 19:53 Dextrose 5% 1,000 Ml IVPB PRN PRN Hypoglycemia Protocol Insulin Aspart 2 - 5 units 08/18/25 08:00 08/22/25 09:07 Insulin Aspart (*Bkc) 100 Units/Ml SUB-Q Not Given TIDWM IVONE Protocol Magnesium Oxide 400 mg 08/22/25 09:00 08/22/25 09:15 Magnesium Oxide 400 Mg Tablet PO 400 mg BID IVONE Administration Pantoprazole Sodium 40 mg 08/18/25 09:00 08/22/25 09:15 Pantoprazole 40 Mg Tablet PO 40 mg QAM IVONE Administration Potassium Chloride 40 meq 08/18/25 09:00 08/22/25 09:15 Potassium Chloride 20 Meq Packet (For Liquid) PO 40 meq DAILY IVONE Administration Pramipexole Dihydrochloride 0.5 mg 08/19/25 23:05 08/21/25 20:17 Pramipexole 0.5 Mg Tablet PO 0.5 mg HS IVONE Administration Pravastatin Sodium 10 mg 08/18/25 09:00 08/22/25 09:15 Pravastatin Sodium 10 Mg Tablet BY MOUTH 10 mg DAILY IVONE Administration Rivaroxaban 20 mg 08/17/25 19:55 08/21/25 16:34 Rivaroxaban 20 Mg Tablet PO 20 mg DAILY@1700 IVONE Administration Sotalol HCl 80 mg 08/17/25 21:00 08/22/25 09:13 Sotalol Hcl 80 Mg Tablet PO 80 mg Q12HR IVONE Administration Spironolactone 25 mg 08/22/25 09:00 08/22/25 09:15 Spironolactone 25 Mg Tablet PO 25 mg QAM IVONE Administration Vitamin D 25 mcg 08/18/25 09:00 08/22/25 09:13 Cholecalciferol (Vitamin D3) 25 Mcg (1,000 Units) Tablet PO 25 mcg DAILY IVONE Administration Radiology Results: ITS Impressions Chest X-Ray 08/17/25 11:05 IMPRESSION: 1. Mild diffuse consolidative changes in the left lung which may represent pneumonia and/or pulmonary edema. Chest CT 08/21/25 15:07 IMPRESSION: 1. Upper lobe predominant groundglass opacification with diffuse miliary nodules. Differential diagnosis in order for likelihood include atypical or opportunistic infection, hypersensitivity pneumonitis and inflammatory or granulomatous disease such as sarcoidosis. Diffuse metastatic disease less likely without known primary malignancy. 2: Small pleural effusions. 3: Borderline mediastinal lymphadenopathy which may be reactive. Labs Labs: Laboratory Results - last 24 hr 08/21/25 08/21/25 08/21/25 05:39 11:44 17:14 WBC RBC Hgb Hct MCV MCH MCHC RDW Plt Count MPV Sodium Potassium Chloride Carbon Dioxide Anion Gap BUN Creatinine Estim Creat Clear Calc Estimated GFR Glucose POC Capillary Glucose 161 H 121 H Calcium NT-Pro-B Natriuret Pep 696 H 08/21/25 08/22/25 08/22/25 20:50 05:00 07:52 WBC 9.2 RBC 3.04 L Hgb 7.4 L Hct 26.4 L MCV 86.8 MCH 24.3 L D MCHC 28.0 L RDW 18.0 H Plt Count 293 MPV 10.6 H Sodium 133 L Potassium 3.5 Chloride 94 L Carbon Dioxide 37 H Anion Gap 2 L BUN 13 Creatinine 0.70 Estim Creat Clear Calc 57 Estimated GFR > 60 Glucose 153 H POC Capillary Glucose 262 H 161 H Calcium 8.6 NT-Pro-B Natriuret Pep Quality VTE Prophylaxis VTE prophylaxis: pharmacologic ordered
[2025-08-22 10:00] VITALS: O2SAT 93
--- NOTE | 2025-08-22 10:11 | P.PNPL_ITS ---
Progress Note: A&P Assessment and Plan (1) Sarcoid: Onset Date: 06/12/25 Code(s): D86.9 - Sarcoidosis, unspecified Status: Acute Assessment and Plan: Review of CT scans in our system the 1st on 01/24/2010 showed patchy ground- glass infiltrates all lobes with mosaic attenuation. There is no change on 11/30/2013. 06/29/2019 patchy right upper lobe and left lower lobe infiltrates with mosaic attenuation. 08/26/2022 there were bilateral upper lobe nodular ground-glass infiltrates with mosaic attenuation. The nodular infiltrates were new since 06/29/2019. 11/20/2022 bilateral upper lobe nodular ground-glass infiltrates with mosaic attenuation that were mildly worse on 12/01/2024 and 07/07/2025. Patient had chronic hypoxemia required 2 L nasal cannula 24-7 for 2-3 years. Patient with bilateral upper lobe infiltrates, hypercalcemia and a biopsy at [facility] on 06/12/2025 with noncaseating granulomas with scattered clusters of multinucleated giant cells with special stains negative for AFB and GMS. Patient was placed on prednisone 10 mg a day to control her hypercalcemia. 08/21/2025: Patient tells me she is breathing normally at rest. She had no dyspnea on exertion when walking to the bedside chair. She complains of being thirsty. She denies fever, chills, rigors. When I enter the room she was on 2 L nasal cannula saturations 99%. I decreased her to 1 L and her saturations were 97%. White blood cell count 9.6, creatinine 0.67. ABG yesterday on 2 L nasal cannula 7.42/49/90. Patient had an overnight oximetry on 2 L nasal cannula with recording duration of 6 hours and 58 minutes. Average saturation 98%. Low saturation 89%. Time with saturation less than or equal to 88% was 0 minutes. Oxygen desaturation index 4.1. There is no evidence of hypercarbic respiratory failure. I do not believe the patient is having an acute sarcoid exacerbation. Patient is refusing to take her prednisone. She took 10 mg on 08/19/2025 but none on 08/18/2025, 08/20/2025, or 08/21/2025. Her calcium is normal at 8.5 today and has been normal from 07/07/2025 onward. Plan: I will continue to monitor the patient off prednisone. I will order CT scan of the chest to assess her lung infiltrates. Agree to monitor patient off of antibiotics at this time. Patient with adequate oxygenation on 2 L nasal cannula at night and I will repeat in [facility] on 1 L nasal cannula at night. recommend Cardiology consult to exclude cardiac sarcoid. Patient tells me she has seen by an milling machinist every 6 months and at her next visit they will mention to the milling machinist that she has been diagnosed with sarcoid and should be evaluated to rule out ocular sarcoid. later in the day patient had a CT scan of the chest and compared to 07/07/2025 and 12/21/2024 there were continued upper lobe nodular ground-glass infiltrates with mild improvement. 08/22/2025: Patient tells me she is breathing normal. She has no rest shortness of breath. She has no dyspnea on exertion walking from the bed to her chair. She denies fever, phlegm or hemoptysis. When I enter the room she was on 2 L with saturations 97%. I decreased her to 1 L and her saturations were 95%. She is afebrile. White blood cell count 9.2, creatinine 0.7. Yesterday she was positive 200 mL. Cumulative she is -1.7 L since admission. Her weight today is 73.4. Cardiology was consulted and they feel there is no evidence of cardiac sarcoid and no further inpatient workup required. patient had an overnight oximetry on 1 L nasal cannula with recording duration 7 hours and 54 minutes. Average saturation 94%. Low saturation 66%. Time with saturation less than or equal to 88% was 54 minutes. Oxygen desaturation index 6.2. Plan: Current CT scan with mild improvement in the bilateral upper lobe nodular ground-glass infiltrates. Patient is clinically improved after diuresis. Prednisone is on hold as this gives patient skin blisters and rashes. Her breathing has improved off of prednisone and with diuresis. From a pulmonary perspective patient is ready to be discharged on these pulmonary medicines: Oxygen at rest and activity per formal home O2 assessment which should be ordered on the day of discharge. Oxygen 2 L nasal cannula when she naps or sleeps. Patient and wish to follow-up with the horse groomer at [facility]. Discussed with Rose Lanza, will sign off, call with questions. (2) Acute exacerbation of CHF (congestive heart failure): Code(s): I50.9 - Heart failure, unspecified Status: Acute Assessment and Plan: Patient presents with fluid overload, increase pedal edema, difficulty laying flat. she has improved with Lasix 40 IV b.i.d. and with no antibiotics and no systemic steroids. Last echocardiogram on 07/11/2025 with LVEF 65-70, moderate concentric increased LV wall thickness with abnormal diastolic function. Right ventricular systolic function is reduced. RV size not well visualized. Mildly enlarged left atrium. Trace MR. Moderate TR with PASP of 60. 08/21/25: BNP has improved from 0 on 08/17/2025 to 696 today. Yesterday she is -370 mL. Cumulative she is minus 1.9 L since admission. Plan: Will recommend to hospitalist obtaining cardiology consult to assess for cardiac sarcoid as above. Patient is on sotalol andrivaroxaban for her AFib. 08/22/25: Yesterday she was positive 200 mL. Cumulative she is -1.7 L since admission. Her weight today is 73.4. Cardiology was consulted and they feel there is no evidence of cardiac sarcoid and no further inpatient workup re quired. Plan: This admission is related to fluid overload. Cath Lab Nurse and hospitalist managing. Currently the patient is on Bumex 1 mg p.o. b.i.d., spironolactone 20 q.day, Jardiance, sotalol 80 q.12 hours and Xarelto 20 q.day. Subjective Date/time seen: 08/22/25 10:11 Interval history: 08/21/2025: This is a new pulmonary consult for sarcoid. 75-year-old with a history of chronic mosaic attenuation since 2013 and with bilateral upper lobe septal thickening with nodular infiltrates since 12/21/24 with biopsy 06/12/2025 with noncaseating granulomas in scattered multinucleated giant cells, pulmonary hypertension, rheumatoid arthritis, polymyalgia rheumatica, CAD with CABG and mitral valve repair 02/27/2014, anemia, hyperlipidemia, hypertension, GERD, paroxysmal atrial fibrillation on rivaroxaban, PMR, TIA, dementia, cervical stenosis s/p posterior cervical decompression with fusion of C2-C6 at [facility] on 06/26/25. Regarding her sarcoid: CT scan 12/21/2024 with increased upper lobe nodular infiltrates and reticulations compared to 11/20/2024. Unchanged lower lobe mosaic attenuation. 11/20/22 to 11/24/22 she was hospitalized for pneumonia and hypoxemic respiratory failure.? CT angiogram 11/20/2022 demonstrated no pulmonary embolism, diffuse mosaic attenuation in all lung ruvalcaba which was present on CT angiogram from 08/26/2022, CT abdomen on 07/09/2022, CTA on 06/26/2019, 12/21/2017 and mosiac attenuation had increased from 11/30/2013. Reports of high resolution CT scan and 04/18/2010 demonstrated improved infiltrates and mosaic attenuation. 07/10/25: I spoke to the . Patient was recently admitted to [facility] for 26 days (about 06/07/25 through 07/04/25). She was discharged to [facility] on 07/04/2025. During this hospitalization she had the above-mentioned cervical neck operation. In addition she had an abnormal CT scan with upper lobe infiltrates and high calcium levels. Patient was seen by the Pulmonary team and she underwent biopsy. On 06/12/2025 patient had a bronchoscopy at [facility]. This was performed for CT scan with numerous upper lobe nodules and concern for sarcoidosis. I have pathology reports from BAL and right upper lobe biopsies which demonstrated few noncasea ting granulomas with scattered clusters of multinucleated giant cells special stains were negative for AFB and GMS. BAL was negative for malignancy.: Right upper lobe BAL: Side is pins and cell block: Negative for malignancy. After the biopsy the Pulmonary team told the that she had sarcoid and that she required prednisone 10 mg a day to control her calcium. The says that the patient never had respiratory distress but did have high carbon dioxide and she was transferred to the ICU for few days and required BiPAP mask treatment. After a few days she was transferred out of the ICU and did not wear the BiPAP any longer. The patient was discharged to [facility] on 2 L nasal cannula and the family was not told that she needed a BiPAP machine. The patient was supposed to be on prednisone 10 mg a day. Old data: 01/07/2023: PFTs Impression: There is a combined obstructive and restrictive ventilatory abnormality. There are no guidelines to assign the severity of obstruction and restriction with a combined abnormality. In my opinion, given the moderately concave expiratory flow tracing and normal FEV1: FVC ratio and moderate restrictive abnormality I would state there is a mild obstructive abnormality and a moderate restrictive abnormality resulting in a severely decreased FEV1. There is no significant improvement after inhaling a single dose of albuterol. The diffusing capacity unadjusted for hemoglobin and carboxyhemoglobin is moderately decreased and normalizes when adjusted for alveolar volume. 07/07/2025: CT scan of the chest showed bilateral right upper lobe greater than left upper lobe homogeneous reticulations with nodular infiltrates, small bilateral pleural effusions left greater than right, no change in her upper lobe or lower lobe mosaic attenuation from 12/21/2024. 07/07/2025 through 07/25/2025: Admitted to [facility] after a fall 3 days after being mid to [facility]. Patient also had respiratory distress and would it is admitted to the ICU and treated for COPD which she does not have, pulmonary hypertension, CHF, sarcoidosis and interstitial lung disease with steroids, bronchodilators, IV Lasix. She received broad-spectrum antibiotics for Enterobacter cloaca K and Proteus pending [place] in the urine. She had an ileus requiring an NG tube. Paroxysmal AFib with intermittent RVR, nd a pressure ulcer. She was discharged to rehabilitation on prednisone 10, Xarelto 20 q.day, Lasix 40 q.day. 07/25/2025 through 08/14/2025: Patient was admitted to rehabilitation. She was refusing BiPAP at night. Walking 150 ft. Recommended to use walker. Discharged on prednisone 10. Lasix 40 a day. Right her occiput and 20 q.day. Discharged on 2 L at rest and with activity and with sleep. weight on 1 10/03/2024 was 73.2 kg. 08/17/2025: Patient presented to the emergency room with shortness of breath, worsening leg swelling. 2 L nasal cannula saturation 97%. Blood pressure 137/80, respirations 16. Pulse 73. Crackles bilaterally. White blood cell count 9.5, creatinine 0.65. BNP was 2080. ABG on 4 L nasal cannula 7.35/57/ less than 27. Chest x-ray with consolidation and congestion. Patient was admitted and treated for fluid overload with IV Lasix. She was prescribed her Lasix 10 mg a day but only took this on 06/19 and refused it all others days because she thought this was causing her blisters on her back of her legs. Her weight was 77 kg. 08/21/2025: Patient tells me she is breathing normally at rest. She had no dyspnea on exertion when walking to the bedside chair. She complains of being thirsty. She denies fever, chills, rigors. When I enter the room she was on 2 L nasal cannula saturations 99%. I decreased her to 1 L and her saturations were 97%. White blood cell count 9.6, creatinine 0.67. BNP has improved from 2079 on 08/17/2025 to 696 today. Yesterday she is -370 mL. Cumulative she is minus 1.9 L since admission. ABG yesterday on 2 L nasal cannula 7.. Patient had an overnight oximetry on 2 L nasal cannula with recording duration of 6 hours and 58 minutes. Average saturation 98%. Low saturation 89%. Time with saturation less than or equal to 88% was 0 minutes. Oxygen desaturation index 4.1. Later in the day patient had a CT scan of the chest and compared to 07/07/2025 and 12/21/2024 there were continued upper lobe nodular ground-glass infiltrates with mild improvement. 08/22/2025: Patient tells me she is breathing normal. She has no rest shortness of breath. She has no dyspnea on exertion walking from the bed to her chair. She denies fever, phlegm or hemoptysis. When I enter the room she was on 2 L with saturations 97%. I decreased her to 1 L and her saturations were 95%. She is afebrile. White blood cell count 9.2, creatinine 0.7. Yesterday she was positive 200 mL. Cumulative she is -1.7 L since admission. Her weight today is 73.4. Cardiology was consulted and they feel there is no evidence of cardiac sarcoid and no further inpatient workup required. patient had an overnight oximetry on 1 L nasal cannula with recording duration 7 hours and 54 minutes. Average saturation 94%. Low saturation 66%. Time with saturation less than or equal to 88% was 54 minutes. Oxygen desaturation index 6.2. DATA: 08/22/25: patient had an overnight oximetry on 1 L nasal cannula with recording duration 7 hours and 54 minutes. Average saturation 94%. Low saturation 66%. Time with saturation less than or equal to 88% was 54 minutes. Oxygen desaturation index 6.2. 08/21/25: Patient had an overnight oximetry on 2 L nasal cannula with recording duration of 6 hours and 58 minutes. Average saturation 98%. Low saturation 89%. Time with saturation less than or equal to 88% was 0 minutes. Oxygen desaturation index 4.1. 08/21/25: EXAMINATION: CT diagnostic chest wo con INDICATION: Sarcoidosis TECHNIQUE: Computed tomography (CT) of the chest was performed without intravenous contrast. The dose-length product was 170.80 mGy-cm. Automated exposure control and iterative reconstruction technique were employed. COMPARISON: CT dated 07/07/2025 and chest x-ray dated 08/17/2025 FINDINGS: Status post median sternotomy for CABG. Heart size normal. Small pleural effusions. Borderline size mediastinal lymph nodes, likely reactive. C alcified granuloma right mid thorax. Upper abdomen is unremarkable. Extensive there is extensive groundglass opacification bilaterally with upper lobe prep 1 6. There are miliary nodules of the upper lobes. Moderate-severe there is lower cervical spinal fusion changes with discectomy at C5-6. Thoracic spondylosis. IMPRESSION: 1. Upper lobe predominant groundglass opacification with diffuse miliary nodules. Differential diagnosis in order for likelihood include atypical or opportunistic infection, hypersensitivity pneumonitis and inflammatory or granulomatous disease such as sarcoidosis. Diffuse metastatic disease less likely without known primary malignancy. 2: Small pleural effusions. 3: Borderline mediastinal lymphadenopathy which may be reactive. 07/17/25: overnight oximetry on 2 L with recording duration of 7 hours and 12 minutes, average saturation 94%, low saturation 84%, time with saturation less than or equal to 88% was 3 minutes, oxygen desaturation index 4.6. 07/11/25: Echo Summary 1. Definity contrast administered improved wall motion interpretation. 2. Left ventricular chamber dimension is normal. 3. Left ventricular systolic function is normal, estimated at 65-70. 4. There is moderate concentric increased left ventricular wall thickness. 5. The left ventricular diastolic function is abnormal. 6. E/e' 26 is significantly elevated. 7. Right ventricular systolic function is reduced based on an abnormal TAPSE 1.4 cm. 8. Left atrial chamber dimension is mildly enlarged. 9. There is moderate aortic valve sclerosis. 10. The mitral valve has a moderately calcified annulus. 11. There is trace mitral valve regurgitation. 12. There is moderate tricuspid valve regurgitation. 13. Severe pulmonary hypertension, estimated pulmonary arterial systolic pressure is 60 mmHg. 14. There is trace pulmonic regurgitation. Left Ventricle E/e' 26 is significantly elevated. Left ventricular chamber dimension is normal. Left ventricular systolic function is normal, estimated at 65-70. There is moderate concentric increased left ventricular wall thickness. The left ventricular diastolic function is abnormal. Definity contrast administered improved wall motion interpretation. Right Ventricle Right ventricular chamber dimension is not well visualized. Right ventricular systolic function is reduced based on an abnormal TAPSE 1.4 cm. Right Atria Right atrial chamber dimension is normal. 07/07/25: EXAMINATION: CT chest abdomen pelvis w con INDICATION: Fall. COMPARISON: Chest CT 12/21/2024 FINDINGS: CHEST CT: The lungs demonstrate smooth septal thickening. There are airspace opacities and nodules in the upper lobes. There are airspace opacities in left lower lobe. There is mild atelectasis in right lower lobe. A calcified right lung nodule is consistent with old granulomatous disease. There are small pleural effusions. The heart size is normal. There are changes of mitral valve replacement. There are coronary artery calcifications. No pericardial effusion. There is a total right shoulder arthroplasty. There are changes of anterior fusion procedure in cervical spine. There is moderate thoracic spondylosis. There is mild chronic anterior wedging of multiple vertebral bodies. ABDOMEN/PELVIS CT: The liver, gallbladder, spleen, pancreas, and adrenal glands are normal. There is cortical thinning of the kidneys. There is a 12 mm cyst in left kidney. There is wall thickening of the rectosigmoid. The appendix is normal. There are no dilated loops of bowel. There are no pathologically enlarged lymph nodes. There is no free intraperitoneal fluid. There is a benign bone island in the right femur. There is severe thoracic spondylosis. IMPRESSION: 1. Diffuse lung disease, likely a combination of pneumonia in the upper lobes and left lower lobe and mild pulmonary edema. 2. Small pleural effusions. 3. Colitis involving the rectosigmoid. 06/12/2025: Right upper lobe BAL: Side is pins and cell block: Negative for malignancy. Clinical Diagnosis and history. This is a 75-year-old woman with a history of COPD, coronary artery disease, chronic anemia who presented with neck pain and generalized weakness. CT chest numerous upper lobe nodules, concerning for sarcoidosis. 06/12/2025 lung, right upper lobe, biopsy: Few noncaseating granulomas and multinucleated giant cells. Microscopic description: Microscopic evaluation shows scant fragments of lung and bronchial tissue with few noncaseating granulomas and scattered clusters of multinucleated giant cells. Special stains for AFB and GMS are performed and are negative for acid-fast bacilli and fungal organisms, respectively. The staining controls are appropriately reactive. 12/21/24: EXAMINATION: CTA chest PE protocol INDICATION: Shortness of breath and hypoxia COMPARISON: 11/20/2022 and 08/26/2022 FINDINGS/OBSERVATIONS: PULMONARY ARTERIES: No filling defect is identified within the main or proximal pulmonary artery. The main pulmonary artery is not enlarged. THORACIC AORTA: No aneurysmal dilatation or dissection is present. The great vessels are intact LUNGS: Patchy groundglass opacification detected bilaterally, with a bilateral upper lobe distribution. MEDIASTINUM: No morphologically suspicious or pathologically enlarged lymph nodes are identified within the mediastinum or bilateral axilla. BONES OF THE CHEST: No acute fracture. No significant degenerative disease. No lytic or blastic lesions. Sternal wires are present. HEART: The heart is of normal size, without pericardial effusion. IMPRESSION: No pulmonary embolus. No thoracic aortic dissection. Patchy groundglass opacification with a bilateral upper lobe distribution. 01/07/2023: This is a pulmonary function test with pre and post-bronchodilator spirometry, plethysmography and diffusing capacity. The test was performed and results interpreted in accordance with the 2019 and 2005 ATS/ERS Task Force guidelines respectively using the Global Lung Function Initiative-2012 reference equations. Patient demonstrated good effort and cooperation. Reproducibility criteria were met. The quality of the pre b ronchodilator spirometry maneuver was Grade A and post bronchodilator spirometry maneuver was Grade A. Findings: Spirometry: There is decreased maximal expiratory airflow at low lung volumes with concave expiratory flow tracing. The contour the inspiratory flow tracing is normal. The pre bronchodilator FVC was 1.09 L, 40% predicted. The pre bronchodilator FEV1 is 0.74 L, 35% predicted. The pre bronchodilator FEV1: FVC ratio is 68%. The post bronchodilator FVC is 1.12 L, representing a 2% increase. The post bronchodilator FEV1 is 0.74 L, representing is no change. The post bronchodilator FVC: FVC ratio 67%. Plethysmography: The total lung capacity is 3.22 L, 66% predicted. The functional residual capacity is 2.18 L, 78% predicted. The residual volume is 2.07 L, 97% predicted. Diffusing capacity: The diffusing capacity unadjusted for hemoglobin and carboxyhemoglobin is 9.3, 46% predicted. The diffusing capacity adjusted for alveolar volume is 4.47, 103% predicted. Impression: There is a combined obstructive and restrictive ventilatory abnormality. There are no guidelines to assign the severity of obstruction and restriction with a combined abnormality. In my opinion, given the moderately concave expiratory flow tracing and normal FEV1: FVC ratio and moderate restrictive abnormality I would state there is a mild obstructive abnormality and a moderate restrictive abnormality resulting in a severely decreased FEV1. There is no significant improvement after inhaling a single dose of albuterol. The diffusing capacity unadjusted for hemoglobin and carboxyhemoglobin is moderately decreased and normalizes when adjusted for alveolar volume. There are no prior studies for comparison 11/24/2022 Home O2 assessment - Patient requires no oxygen at rest and 4 with exercise. She had a negative PATRICIA panel in 2021. Echo 11/21/22 ? Summary 1. Complete two-dimensional, color flow and Doppler transthoracic echocardiogram is performed. 2. Left ventricular chamber dimension is normal. 3. Left ventricular systolic function is normal, estimated at 60-65%. 4. There is moderate concentric increased left ventricular wall thickness. 5. The left ventricular diastolic function is abnormal. 6. E/e' 28 is elevated. 7. Left atrial chamber dimension is moderately enlarged. 8. There is mild aortic valve sclerosis. 9. The mitral valve has mildly calcified leaflets and moderately calcified annulus. 10. There is trace mitral valve regurgitation. 11. There is mild tricuspid valve regurgitation. 12. Moderate pulmonary hypertension, estimated pulmonary arterial systolic pressure is 59 mmHg. 13. There is trace pulmonic regurgitation. 14. Dilated inferior vena cava with >50% collapse upon inspiration consistent with elevated right atrial pressure, 10 mmHg. 11/20/2022: EXAMINATION: CTA chest PE protocol INDICATION: Dyspnea. Recently treated for pneumonia. COMPARISON: 11/20/2022 2 view chest 08/26/2022 CT pulmonary scan FINDINGS: There is diagnostic contrast enhancement of the pulmonary arteries and no evidence of pulmonary embolism. There is old pulmonary granulomatous disease. Status post sternotomy and mitral valve replacement. Normal heart size. No thoracic aortic aneurysm. No hilar or mediastinal mass lesion or lymphadenopathy. There is patchy groundglass densities scattered throughout both lungs which may be due to small airways disease, atelectasis and/or pneumonia. Postoperative change of the lower cervical spine. Degenerative spurring of the thoracic spine. Right glenohumeral arthroplasty. IMPRESSION: No evidence of pulmonary embolus Scattered patchy groundglass infiltrates throughout both lungs which may be due to small airways disease, atelectasis and/or pneumonia 08/26/2022: EXAMINATION: CTA chest PE protocol DATE: 08/26/2022 11:23 INDICATION: Shortness of breath and hypoxia TECHNIQUE: Computed tomography angiography (CTA) of the chest was performed with 100 mL Omnipaque-350 intravenous contrast timed to evaluate the pulmonary arteries. Coronal maximum intensity projection 3D-reconstructions were created by the technologist. The dose-length product (DLP) was 621.73 mGy-cm. Automated exposure control and iterative reconstruction technique were employed. COMPARISON: 06/26/2019 FINDINGS: The pulmonary arteries are well-opacified. No pulmonary embolism is identified. There are airspace opacities of the lung apices. Chronic areas of air-trapping are noted throughout the lungs. No pleural effusion or pneumothorax. There are changes of coronary artery bypass grafting and mitral valve surgery. No pathologically enlarged thoracic lymph nodes are identified. The heart size is normal. There is moderate thoracic spondylosis. IMPRESSION: 1. No pulmonary embolus identified. 2. Minimal airspace opacities of the lung apices, likely infection/inflammation. 06/26/2019:EXAMINATION: CTA CHEST (PULMONARY ART) DATE: 06/26/2019 10:03 INDICATION: Shortness of breath. Hypoxia. Subtherapeutic INR. COMPARISON: 06/24/2019 2 view chest 12/21/2017 CTA chest FINDINGS: There is diagnostic contrast enhancement the pulmonary arteries and no evidence of pulmonary embolism. Normal heart size. Mitral valve replacement and sternotomy are noted. No thoracic aortic aneurysm or dissection. No hilar or mediastinal mass lesion or lymphadenopathy. There is right upper lobe patchy infiltrate. There are couple of areas of left lower lobe tree-in-bud infiltrate. Status post lower anterior cervical spine surgical fusion. There is degenerative disease of the cervical spine and diffuse idiopathic skeletal hyperostosis of the thoracic spine. IMPRESSION: No evidence of pulmonary embolism. Patchy right upper lobe and left lower lobe infiltrates 12/21/2017: EXAMINATION: CTA CHEST (AORTA) NON CORONARY DATE: 12/21/17 INDICATION: Upper back pain. TECHNIQUE: Computed tomographic angiography (CTA) of the chest was performed without and with 100 mL Omnipaque-350 intravenous contrast. Volume-rendered 3D- reconstructions of the aorta and large arteries were constructed by the technologist on a separate workstation. Automated exposure control and iterative reconstruction technique were employed. The dose-length product was 586 mGy-cm. COMPARISON: None. FINDINGS: No mosaic attenuation in the lungs with similar appearance to the pulmonary vasculature in both the more dense and lucent regions of the lung which would favor air trapping and small artery disease over small vessel disease. Calcified nodule in the super segment of the right lower lobe and calcified right hilar lymph node consistent with old granulomatous disease. No pneumonia, pulmonary edema, pleural effusion or pneumothorax. No pulmonary embolism. Heart size is normal. Postoperative changes of prior median sternotomy with both coronary artery bypass grafting and mitral valve repair. No pericardial effusion. Thoracic aorta is normal in caliber with no dissection. No pathologically enlarged thoracic lymphadenopathy. Mild wall thickening the distal esophagus which could be seen with esophagitis. Anterior spinal fusion with anterior plate and screw fixation at C5-C6. Incompletely visualized right total shoulder arthroplasty. Moderate thoracic spondylosis with stable appearance of mild anterior wedging of several mid-lower thoracic vertebral bodies. IMPRESSION: 1. No acute cardiopulmonary disease or acute osseous abnormality. Specifically no aortic aneurysm or dissection. 2. Mild wall thickening in the distal esophagus which could be seen with esophagitis. 3. Mosaic attenuation in both lungs consistent with small airway disease and mild subsegmental air trapping. 4. Postoperative changes of prior median sternotomy, coronary artery bypass grafting, mitral valve repair, 11/30/2013: CT CHEST HIGH RESOLUTION W/O INDICATION: Shortness of breath, pulmonary hypertension. TECHNIQUE: Spiral CT of the chest was performed without intravenous contrast. Axial, coronal and sagittal images were reviewed. HRCT obtained. The exam was reviewed on 11/30/13. Correlation was made with pulmonary CT same date. FINDINGS: HRCT demonstrates no interlobular septal thickening to suggest interstitial lung disease. Interval improvement in the bilateral groundglass opacities involving all lobes with perihilar distribution, characteristic for pulmonary edema. There are smaller patchy more confluent opacifications in the right infrahilar region. Can't exclude pneumonia for these opacities. Pulmonary arteries are within normal size limits. Tracheobronchial tree is patent. There is no mediastinal, hilar or axillary lymphadenopathy. Again there is small pleural effusions. There is no pneumothorax. Heart normal in size. Upper abdomen is unremarkable. Mild thoracic spondylosis. There are no osteoblastic or osteolytic lesions identified. IMPRESSION: 1. Improving bilateral perihilar opacities, more likely pulmonary edema than infection. 2. Small bilateral pleural effusions, unchanged. 04/18/2010: CT chest without contrast History: Shortness of breath Technique: 5 mm slices in the axial plane and 1.25 mm high resolution slices. Comparison: CT from 01/24/10 Findings: The groundglass opacities in the lungs have substantially improved. Mild nodularity is present in the periphery of the lungs. The nodules are most numerous in the right middle lobe hand are centrilobular in distribution. The airways are patent. A calcified granuloma is present in the right lower lobe. Right hilar calcified lymph nodes are present. The heart size and aortic caliber are normal. Pulmonary vascularity is normal. No pneumothorax or plural effusions are present. The lymph nodes are subcentimeter. Degenerative changes are present in the cervical and thoracic spine. No interstitial thickeing or architectural distortion is present in the high resolution images. Impression: 1. Substantially improved bilateral airspace opacities. Bronchiolitis which is relatively greatest in the periphery of the right middle lobe. 01/24/2010: CT scan of the chest. INDICATION: Shortness of breath TECHNIQUE: Routine contrast enhanced pulmonary CTA COMPARISON: Chest x-ray dated 01/24/10 FINDINGS: No thoracic lymph node enlargement. No pleural or pericardial abnormality's. No endobronchial lesions. Heart size normal. Normal filling of the pulmonary arteries with contrast without evidence for pulmonary embolism. Sequela of prior granulomatous infection noted in the lisa and right lower lobe. Bibasilar dependent atelectasis. Patchy bilateral groundglass opacities are identified. No suspicious pulmonary nodules or masses. IMPRESSION: 1: Patchy bilateral groundglass opacities are identified involving all lobes. Differential diagnosis includes atypical pneumonia (viral pneumonia and PCP) , chronic infiltrative lung disease (bronchiolitis, nonspecific interstitial pneumonitis, DIP ), acute airspace disease (pulmonary edema, hypersensitivity pneumonitis, eosinophilic pneumonia). Less likely considerations include bronchioloalveolar cell carcinoma. 2: No evidence for pulmonary embolism. Review of Systems Constitutional: Constitutional: Reports no additional constitutional complaints Eyes: Eyes: Reports no additional eye complaints ENT: Reports system reviewed and no additional complaints, except as documented Cardiovascular: Cardiovascular: Reports no additional cardiovascular complaints Respiratory: Respiratory: Reports no additional respiratory complaints Gastrointestinal: Gastrointestinal: Reports no additional gastrointestinal complaints Musculoskeletal: Musculoskeletal: Reports no additional musculoskeletal complaints Neurologic: Reports system reviewed and no additional complaints, except as documented Psychiatric: Psychiatric: Reports no additional psychiatric complaints Endocrine: Endocrine: Reports no additional endocrine complaints Hematologic/Lymphatic: Hematologic/Lymphatic: Reports no additional hematologic/lymphatic complaints Allergic/Immunologic: Allergic/Immunologic: Reports no additional allergic/immunologic complaints Exam Const: General: cooperative, healthy appearing and comfortable Orientation/consciousness: oriented to person, oriented to place and oriented to time HENMT: Head: normal to inspection Ears: hearing grossly normal bilaterally Eyes: General: appearance normal, both eyes and all related structures Neck: Neck: normal visual inspection Chest: Chest palpation & inspection: normal inspection of the chest Resp: Effort & Inspection: normal respiratory effort and able to speak in complete sentences Auscultation: no crackles, no rales, no rhonchi, no wheezes and lung sounds not diminished Cardio: Jugular venous distension: no JVD GI: Inspection: normal to inspection Skin: General skin exam: normal color Neuro: General: oriented to person, oriented to place and oriented to time Extrem: General: normal to inspection and edema Psych: Appearance: grossly normal Objective Data Vital Signs Vital Signs: Vital Signs - 24 hr 08/21/25 20:00 08/21/25 20:17 08/21/25 20:46 Temperature 36.6 C Pulse Rate 98 118 H 98 Respiratory Rate 20 20 Blood Pressure 125/63 Pulse Oximetry 93 93 Oxygen Delivery Nasal Cannula Oxygen Flow Rate 1 Fraction of Inspired Oxygen 24 08/21/25 21:11 08/22/25 05:33 08/22/25 09:13 Temperature 36.8 C Pulse Rate 91 100 Respiratory Rate 18 Blood Pressure 122/73 Pulse Oximetry 93 95 Oxygen Delivery Nasal Cannula Oxygen Flow Rate 1 Fraction of Inspired Oxygen 24 Intake/Output Intake/Output: Intake & Output 08/19/25 08/20/25 08/21/2525 23:59 23:59 23:59 23:59 Intake Total 4035 267 4125 120 Output Total 875 1300 1000 400 Balance 495 -370 200 -280 Meds/Results Medications: Active Medications Generic Name Dose Route Start Last Admin Trade Name Freq PRN Reason Stop Dose Admin Acetaminophen 500 mg 08/17/25 19:48 08/21/25 11:37 Acetaminophen 500 Mg Tablet PO 500 mg Q6H PRN Administration fever or pain rated 1-3 Bumetanide 1 mg 08/22/25 09:00 08/22/25 09:15 Bumetanide 1 Mg Tablet PO 1 mg BID IVONE Administration Buspirone HCl 2.5 mg 08/18/25 10:15 08/22/25 09:13 Buspirone Hcl 2.5 Mg Tablet PO 2.5 mg Q12HR IVONE Administration Dextrose 12.5 gm 08/17/25 19:53 Dextrose 50% 25 Gm/50 Ml Syringe IV PUSH PRN PRN Hypoglycemia Protocol Glucagon 1 mg 08/17/25 19:53 Glucagon For Inj 1 Mg Vial IM PRN PRN Hypoglycemia Protocol Glucose 15 gm 08/17/25 19:53 Glucose Oral Gel 15 Gm Of Glucse In 37.5 Gm Tube PO PRN PRN Hypoglycemia Protocol Dextrose 1,000 mls @ 100 mls/hr 08/17/25 19:53 Dextrose 5% 1,000 Ml IVPB PRN PRN Hypoglycemia Protocol Insulin Aspart 2 - 5 units 08/18/25 08:00 08/22/25 09:07 Insulin Aspart (*Bkc) 100 Units/Ml SUB-Q Not Given TIDWM IVONE Protocol Magnesium Oxide 400 mg 08/22/25 09:00 08/22/25 09:15 Magnesium Oxide 400 Mg Tablet PO 400 mg BID IVONE Administration Pantoprazole Sodium 40 mg 08/18/25 09:00 08/22/25 09:15 Pantoprazole 40 Mg Tablet PO 40 mg QAM IVONE Administration Potassium Chloride 40 meq 08/18/25 09:00 08/22/25 09:15 Potassium Chloride 20 Meq Packet (For Liquid) PO 40 meq DAILY VIONE Administration Pramipexole Dihydrochloride 0.5 mg 08/19/25 23:05 08/21/25 20:17 Pramipexole 0.5 Mg Tablet PO 0.5 mg HS IVONE Administration Pravastatin Sodium 10 mg 08/18/25 09:00 08/22/25 09:15 Pravastatin Sodium 10 Mg Tablet BY MOUTH 10 mg DAILY IVONE Administration Rivaroxaban 20 mg 08/17/25 19:55 08/21/25 16:34 Rivaroxaban 20 Mg Tablet PO 20 mg DAILY@1700 IVONE Administration Sotalol HCl 80 mg 08/17/25 21:00 08/22/25 09:13 Sotalol Hcl 80 Mg Tablet PO 80 mg Q12HR IVONE Administration Spironolactone 25 mg 08/22/25 09:00 08/22/25 09:15 Spironolactone 25 Mg Tablet PO 25 mg QAM IVONE Administration Vitamin D 25 mcg 08/18/25 09:00 08/22/25 09:13 Cholecalciferol (Vitamin D3) 25 Mcg (1,000 Units) Tablet PO 25 mcg DAILY IVONE Administration Radiology Results: ITS Impressions Chest X-Ray 08/17/25 11:05 IMPRESSION: 1. Mild diffuse consolidative changes in the left lung which may represent pneumonia and/or pulmonary edema. Chest CT 08/21/25 15:07 IMPRESSION: 1. Upper lobe predominant groundglass opacification with diffuse miliary nodules. Differential diagnosis in order for likelihood include atypical or opportunistic infection, hypersensitivity pneumonitis and inflammatory or granulomatous disease such as sarcoidosis. Diffuse metastatic disease less likely without known primary malignancy. 2: Small pleural effusions. 3: Borderline mediastinal lymphadenopathy which may be reactive. Labs Labs: Laboratory Results - last 24 hr 08/21/25 08/21/25 08/21/25 05:39 11:44 17:14 WBC RBC Hgb Hct MCV MCH MCHC RDW Plt Count MPV Sodium Potassium Chloride Carbon Dioxide Anion Gap BUN Creatinine Estim Creat Clear Calc Estimated GFR Glucose POC Capillary Glucose 161 H 121 H Calcium NT-Pro-B Natriuret Pep 696 H 08/21/25 08/22/25 08/22/25 20:50 05:00 07:52 WBC 9.2 RBC 3.04 L Hgb 7.4 L Hct 26.4 L MCV 86.8 MCH 24.3 L D MCHC 28.0 L RDW 18.0 H Plt Count 293 MPV 10.6 H Sodium 133 L Potassium 3.5 Chloride 94 L Carbon Dioxide 37 H Anion Gap 2 L BUN 13 Creatinine 0.70 Estim Creat Clear Calc 57 Estimated GFR > 60 Glucose 153 H POC Capillary Glucose 262 H 161 H Calcium 8.6 NT-Pro-B Natriuret Pep
[2025-08-22 14:00] VITALS: BP 146/84; PULSE 117; RESP 14; TEMP 36.6; O2SAT 97
[2025-08-22] MEDS: RIVAROXABAN 20 MG TABLET PO (16:59)
[2025-08-22] MEDS: INSULIN ASPART (*BKC) 100 UNITS/ML SUB-Q (16:59)
[2025-08-22 20:18] VITALS: BP 139/75; PULSE 104; RESP 20; TEMP 36.3; O2SAT 100
[2025-08-22 21:29] VITALS: PULSE 65
[2025-08-22] MEDS: PRAMIPEXOLE 0.5 MG TABLET PO (21:29)
[2025-08-23 03:18] VITALS: BP 134/74; PULSE 88; RESP 18; TEMP 36.4; O2SAT 100
[2025-08-23 05:23] LABS: Hematocrit 26.9 % (37.0-47.0); Hemoglobin 7.6 g/dL (12.0-15.0); Mean Corpuscular HGB Conc 28.3 g/dl (32-36); Mean Corpuscular Hemoglobin 24.8 pg (26-34); Mean Corpuscular Volume 87.6 fl (80-100); Platelet Count Result 279 k/mm3 (150-375); Red Blood Count 3.07 M/mm3 (4.2-5.4); White Blood Count 8.4 K/mm3 (4.5-10.0)
[2025-08-23 05:49] LABS: Anion Gap 3 mmol/L (4-12); Blood Urea Nitrogen 11 mg/dL (7-17); Calcium 8.5 mg/dL (8.4-10.2); Carbon Dioxide 33 mmol/L (22-30); Chloride 95 mmol/L (98-107); Estimated CRCL calculation 62 ml/min; Estimated Glomerular Filt Rate > 60; Glucose 144 mg/dL (65-110); Magnesium 1.4 mg/dL (1.6-2.3); Potassium 3.1 mmol/L (3.4-5.0); Sodium 131 mmol/L (137-145)
[2025-08-23 08:00] VITALS: O2SAT 100
--- NOTE | 2025-08-23 08:00 | PM.PNCARD ---
Progress Note: A&P Assessment and Plan (1) Sarcoid: Onset Date: 06/12/25 Code(s): D86.9 - Sarcoidosis, unspecified Status: Acute Assessment and Plan: Confirmed on lung biopsy. On Prednisone. To define if it involves the heart, would need cardiac MRI. 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 If it causes systolic dysfunction or heart block in the future then will treat those entities. (2) Acute exacerbation of CHF (congestive heart failure): Code(s): I50.9 - Heart failure, unspecified Status: Acute Assessment and Plan: Acute on chronic diastolic HF. 07/11/25 Echo: EF 65-70%, mod LVH, diastolic dysfunction with E/e' 26, mild LAE, mod MAC, trace MR, mod TR, RVSP 60 mmHg, trace PI. Restrict fluid to 1-1.5 l/day. Intolerant of Jardiance due to yeast infection from it. Now on Bumetanide 1 mg PO BID and Spironolactone 25 mg daily. Increase KCl 40 meq BID for potassium 3.1. On MagOx 400 mg BID for Mag 1.4. Need to monitor potassium closely as Spironolactone started on 08/22/25 may start to increase potassium levels. I will be off starting tomorrow and Dr. Kim with [facility] will cover me. Upon discharge have her f/u with me in 1-2 weeks. (3) Paroxysmal atrial fibrillation: Code(s): I48.0 - Paroxysmal atrial fibrillation Status: Chronic Assessment and Plan: Stable. On Sotalol and Xarelto. 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 (5) Essential hypertension: Code(s): I10 - Essential (primary) hypertension Status: Acute Assessment and Plan: Stable. (6) Dyslipidemia: Code(s): E78.5 - Hyperlipidemia, unspecified Status: Acute Assessment and Plan: On Pravastatin. Subjective Date/time seen: 08/23/25 08:00 Interval history: Reports some sob. Has pedal edema. No chest pains. Exam Const: General: cooperative, healthy appearing and comfortable Orientation/consciousness: oriented to person, oriented to place and oriented to time Resp: Auscultation: no crackles, no rales, no rhonchi, no wheezes and diminished lung sounds Cardio: Rate: regular rate Rhythm: regular rhythm Heart sounds: no murmurs Peripheral pulses: dorsalis pedis present Neuro: General: oriented to person, oriented to place and oriented to time Extrem: Right lower extremity: edema Left lower extremity: edema Other: Has moderate pedal edema bilaterally. Objective Data Vital Signs Vital Signs: Vital Signs - 24 hr 08/22/25 09:13 08/22/25 10:00 08/22/25 14:00 Temperature 97.9 F Pulse Rate 100 117 H Respiratory Rate 14 Blood Pressure 146/84 H Pulse Oximetry 93 97 Oxygen Delivery Nasal Cannula Oxygen Flow Rate 2 08/22/25 20:18 08/22/25 21:29 08/23/25 03:18 Temperature 97.4 F L 97.6 F Pulse Rate 104 H 65 88 Respiratory Rate 20 18 Blood Pressure 139/75 134/74 Pulse Oximetry 100 100 Oxygen Delivery Oxygen Flow Rate Intake/Output Intake/Output: Intake & Output 08/20/25 08/21/25 08/22/25 08/23/25 23:59 23:59 23:59 23:59 Intake Total 930 1200 640 120 Output Total 1300 1000 1350 400 Balance -370 200 710 -280 Meds/Results Medications: Active Medications Generic Name Dose Route Start Last Admin Trade Name Freq PRN Reason Stop Dose Admin Acetaminophen 500 mg 08/17/25 19:48 08/21/25 11:37 Acetaminophen 500 Mg Tablet PO 500 mg Q6H PRN Administration fever or pain rated 1-3 Bumetanide 1 mg 08/22/25 09:00 08/22/25 16:59 Bumetanide 1 Mg Tablet PO 1 mg BID IVONE Administration Buspirone HCl 2.5 mg 08/18/25 10:15 08/22/25 21:29 Buspirone Hcl 2.5 Mg Tablet PO 2.5 mg Q12HR IVONE Administration Dextrose 12.5 gm 08/17/25 19:53 Dextrose 50% 25 Gm/50 Ml Syringe IV PUSH PRN PRN Hypoglycemia Protocol Glucagon 1 mg 08/17/25 19:53 Glucagon For Inj 1 Mg Vial IM PRN PRN Hypoglycemia Protocol Glucose 15 gm 08/17/25 19:53 Glucose Oral Gel 15 Gm Of Glucse In 37.5 Gm Tube PO PRN PRN Hypoglycemia Protocol Dextrose 1,000 mls @ 100 mls/hr 08/17/25 19:53 Dextrose 5% 1,000 Ml IVPB PRN PRN Hypoglycemia Protocol Insulin Aspart 2 - 5 units 08/18/25 08:00 08/22/25 16:59 Insulin Aspart (*Bkc) 100 Units/Ml SUB-Q 3 units TIDWM IVONE Administration Protocol Magnesium Oxide 400 mg 08/22/25 09:00 08/22/25 16:59 Magnesium Oxide 400 Mg Tablet PO 400 mg BID IVONE Administration Pantoprazole Sodium 40 mg 08/18/25 09:00 08/22/25 09:15 Pantoprazole 40 Mg Tablet PO 40 mg QAM IVONE Administration Potassium Chloride 40 meq 08/23/25 08:00 Potassium Chloride 20 Meq Packet (For Liquid) PO BIDWM IVONE Pramipexole Dihydrochloride 0.5 mg 08/19/25 23:05 08/22/25 21:29 Pramipexole 0.5 Mg Tablet PO 0.5 mg HS IVONE Administration Pravastatin Sodium 10 mg 08/18/25 09:00 08/22/25 09:15 Pravastatin Sodium 10 Mg Tablet BY MOUTH 10 mg DAILY IVONE Administration Rivaroxaban 20 mg 08/17/25 19:55 08/22/25 16:59 Rivaroxaban 20 Mg Tablet PO 20 mg DAILY@1700 IVONE Administration Sotalol HCl 80 mg 08/17/25 21:00 08/22/25 21:29 Sotalol Hcl 80 Mg Tablet PO 80 mg Q12HR IVONE Administration Spironolactone 25 mg 08/22/25 09:00 08/22/25 09:15 Spironolactone 25 Mg Tablet PO 25 mg QAM IVONE Administration Vitamin D 25 mcg 08/18/25 09:00 08/22/25 09:13 Cholecalciferol (Vitamin D3) 25 Mcg (1,000 Units) Tablet PO 25 mcg DAILY IVONE Administration Radiology Results: ITS Impressions Chest X-Ray 08/17/25 11:05 IMPRESSION: 1. Mild diffuse consolidative changes in the left lung which may represent pneumonia and/or pulmonary edema. Chest CT 08/21/25 15:07 IMPRESSION: 1. Upper lobe predominant groundglass opacification with diffuse miliary nodules. Differential diagnosis in order for likelihood include atypical or opportunistic infection, hypersensitivity pneumonitis and inflammatory or granulomatous disease such as sarcoidosis. Diffuse metastatic disease less likely without known primary malignancy. 2: Small pleural effusions. 3: Borderline mediastinal lymphadenopathy which may be reactive. Labs Labs: Laboratory Results - last 24 hr 08/22/25 08/22/25 08/22/25 11:33 16:41 20:23 WBC RBC Hgb Hct MCV MCH MCHC RDW Plt Count MPV Sodium Potassium Chloride Carbon Dioxide Anion Gap BUN Creatinine Estim Creat Clear Calc Estimated GFR Glucose POC Capillary Glucose 163 H 257 H 201 H Calcium Magnesium 08/23/25 05:05 WBC 8.4 RBC 3.07 L Hgb 7.6 L Hct 26.9 L MCV 87.6 MCH 24.8 L MCHC 28.3 L RDW 18.1 H Plt Count 279 MPV 10.4 Sodium 131 L Potassium 3.1 L Chloride 95 L Carbon Dioxide 33 H Anion Gap 3 L BUN 11 Creatinine 0.63 L Estim Creat Clear Calc 62 Estimated GFR > 60 Glucose 144 H POC Capillary Glucose Calcium 8.5 Magnesium 1.4 L
[2025-08-23 09:48] VITALS: PULSE 99
[2025-08-23] MEDS: SPIRONOLACTONE 25 MG TABLET PO (09:48)
[2025-08-23] MEDS: POTASSIUM CHLORIDE 20 MEQ PACKET (FOR LIQUID) 40 MEQ PO (09:48)
[2025-08-23] MEDS: BUMETANIDE 1 MG TABLET PO (09:48)
[2025-08-23] MEDS: SOTALOL HCL 80 MG TABLET PO (09:48)
[2025-08-23] MEDS: PANTOPRAZOLE 40 MG TABLET PO (09:48)
[2025-08-23] MEDS: PRAVASTATIN SODIUM 10 MG TABLET BY MOUTH (09:48)
[2025-08-23] MEDS: CHOLECALCIFEROL (VITAMIN D3) 25 MCG (1,000 UNITS) TABLET PO (09:50)
[2025-08-23] MEDS: busPIRone HCL 2.5 MG TABLET PO (09:50)
[2025-08-23] MEDS: MAGNESIUM OXIDE 400 MG TABLET PO (09:50)
--- NOTE | 2025-08-23 10:50 | PM.DS ---
DS: Admitting Diagnosis Discharge Date 08/23/2025 Admitting Diagnosis CHF exacerbation DS: Discharge Diagnosis Discharge Diagnosis (1) Acute exacerbation of CHF (congestive heart failure): Code(s): I50.9 - Heart failure, unspecified Status: Acute Assessment and Plan: - BNP 2079 - furosemide 40 mg IVP b.i.d. - Follows Dr. Sorensen outpatient - monitor I&Os - trend renal function I/O reviewed compression stocking help as leg edema better today diuresing carol K replacement but K is still low will order IV replacement x 1 cardiology update this AM: Acute on chronic diastolic HF. 07/11/25 Echo: EF 65-70%, mod LVH, diastolic dysfunction with E/e' 26, mild LAE, mod MAC, trace MR, mod TR, RVSP 60 mmHg, trace PI. Restrict fluid to 1-1.5 l/day. Intolerant of Jardiance due to yeast infection from it. Now on Bumetanide 1 mg PO BID and Spironolactone 25 mg daily. Increase KCl 40 meq BID for potassium 3.1. On MagOx 400 mg BID for Mag 1.4. Need to monitor potassium closely as Spironolactone started on 08/22/25 may start to increase potassium levels. I will be off starting tomorrow and Dr. Kim with [facility] will cover me. Upon discharge have her f/u with me in 1-2 weeks. (2) Chronic obstructive pulmonary disease, unspecified: Code(s): J44.9 - Chronic obstructive pulmonary disease, unspecified Status: Acute Assessment and Plan: does not appear to be in acute exacerbation. Currently on baseline O2. - continue prednisone 10 mg p.o. 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 Follow-up surgeon at [facility] (6) Hyperlipidemia: Code(s): E78.5 - Hyperlipidemia, unspecified Status: Acute Assessment and Plan: Continue pravastatin (7) Sarcoid: Onset Date: 06/12/25 Code(s): D86.9 - Sarcoidosis, unspecified Status: Acute Assessment and Plan: previous notes reviewed from DR Wolf: ....abnormal CT scan with upper lobe infiltrates and high calcium levels. Patient was seen by the Pulmonary team and she underwent biopsy. After the biopsy the Pulmonary team told the that she had sarcoid and that she required prednisone 10 mg a day to control her calcium she never had any f/u with pulm at [place] as she was hospitalized/in rehab cardiology was consulted: Confirmed on lung biopsy. On Prednisone. To define if it involves the heart, would need cardiac MRI. I don't think this would exchange underwriting consultant. If it causes systolic dysfunction or heart block in the future then will treat those entities. -Pt to f/u with cards on an outpt status. Plan Pt denies CP, SOB, or any other issues today, she states that she is comfortable going home. Pt to be discharged today with prompt lab work and cards Dr. Sorensen f/u due to medication changes and management. To continue on heart healthy diet with 1200ml fluid restriction. DS: Summary Hospital Course Reason for hospitalization: CHF exacerbation Hospital Course: The patient is a 75-year-old female with a complex medical history including chronic diastolic heart failure, pulmonary sarcoidosis, chronic hypoxic respiratory failure on home oxygen, COPD, paroxysmal atrial fibrillation on anticoagulation and rate control, coronary artery disease status post CABG and mitral valve repair, pulmonary hypertension, type 2 diabetes mellitus, and recent cervical spine surgery, who presented with worsening shortness of breath, orthopnea, and progressive bilateral lower extremity edema. Initial evaluation was notable for volume overload with pulmonary congestion on chest imaging and a markedly elevated BNP of 2080, consistent with an acute exacerbation of heart failure. She required higher than baseline oxygen on presentation. The patient was admitted and treated with aggressive IV diuresis using furosemide, later transitioned to bumetanide, with close monitoring of intake/output, renal function, and electrolytes. Her hospital course was complicated by hypokalemia and hypomagnesemia, which required both IV and oral replacement, and she was ultimately started on spironolactone with careful electrolyte surveillance. Over the course of hospitalization, she had net negative diuresis of approximately 1.7?1.9 liters, with significant improvement in dyspnea, orthopnea, and leg edema, and BNP improved to 696. Cardiology was consulted and confirmed acute on chronic diastolic heart failure with preserved ejection fraction; no evidence of cardiac sarcoidosis was identified, and no further inpatient cardiac workup was recommended. Pulmonology was also consulted for known biopsy-proven pulmonary sarcoidosis and chronic hypoxemia. There was no evidence of an acute sarcoid flare or infectious process, and systemic steroids were discontinued due to adverse skin reactions and clinical stability. Overnight oximetry and ABG testing were completed, and oxygen requirements were clarified, with the patient stable on 1?2 L nasal cannula during the day and 2 L at night. Her atrial fibrillation remained rate controlled on sotalol, and anticoagulation with rivaroxaban was continued without complication. Blood glucose levels were managed with basal-bolus insulin and correctional coverage. By the day of discharge, the patient was hemodynamically stable, breathing comfortably near her baseline, tolerating oral medications, and felt ready for discharge. She was discharged home with home health services, updated heart failure medications, electrolyte supplementation, fluid restriction, and close outpatient follow-up with cardiology, pulmonology, and primary care, along with scheduled laboratory monitoring. Status at Discharge Overall status at discharge: patient is progressing back to baseline Time Spent with Patient Time attestation: Total time spent providing and/or coordinating discharge services: Time spent: Greater than 30 minutes Exam Narrative: GENERAL: non-toxic appearing, in no acute distress. Up in a chair, ill-appearing HEAD: Normocephalic, atraumatic. collar in place for recent c spine surgery EYES: PERRLA. Conjunctivae clear. NOSE: Normal no drainage. THROAT: Pharynx clear, no exudate. no mouth sores NECK: Trachea midline. No adenopathy, no masses. RESPIRATORY: Airway patent, respirations nonlabored. Diminished bilaterally CARDIOVASCULAR: Regular rate and rhythm GASTROINTESTINAL: Abdomen is soft and nontender. No organomegaly. Bowel sounds normal in all quadrants. GENITOURINARY: Defer MUSCULOSKELETAL: Moves all extremities. No gross deformities. dependent edema bilateral extremities. compression stockings in place SKIN: Warm, dry, normal color. Scabs scratching pattern noted to right posterior knee. redness to left lower leg, no open wounds NEURO: A&O X4. Speech clear PSYCHIATRIC; anxious Const: General: comfortable DS: Data Data Completed and Pending Completed studies during hospitalization: labs, urine, imaging Labs on day of discharge: Labs from last 24 hours 08/23/25 08/23/25 08/22/25 07:59 05:05 20:23 WBC 8.4 RBC 3.07 L Hgb 7.6 L Hct 26.9 L MCV 87.6 MCH 24.8 L MCHC 28.3 L RDW 18.1 H Plt Count 279 MPV 10.4 Sodium 131 L Potassium 3.1 L Chloride 95 L Carbon Dioxide 33 H Anion Gap 3 L BUN 11 Creatinine 0.63 L Estim Creat Clear Calc 62 Estimated GFR > 60 Glucose 144 H POC Capillary Glucose 163 H 201 H Calcium 8.5 Magnesium 1.4 L 08/22/25 08/22/25 16:41 11:33 WBC RBC Hgb Hct MCV MCH MCHC RDW Plt Count MPV Sodium Potassium Chloride Carbon Dioxide Anion Gap BUN Creatinine Estim Creat Clear Calc Estimated GFR Glucose POC Capillary Glucose 257 H 163 H Calcium Magnesium Preliminary micro results at discharge 08/17/25 12:08 Blood Culture - Preliminary Blood 08/17/25 12:08 Blood Culture - Preliminary Blood Discharge Plan Discharge Attending physician on discharge: Melany Corado Consulting providers: Greg Wolf; Miky Sorensen; Lisa Smith Discharging Clinician: Lisa Smith Anticipated Discharge Date/Time: 08/23/25 13:00 Patient Disposition: Home with Home Health Service Activity: as tolerated Diet: heart healthy, low sodium and other - see discharge instructions Discharge Instructions: 1. Continue with your low sodium heart healthy diet along with your fluid restriction of 1,200ml/day. 2. Dr. Sorensen would like to follow-up with you in his office in 1-2 weeks, continue to take the potassium and magnesium supplements as he has prescribed. 3. Have your labs drawn prior to seeing Dr. Sorensen so he can evaluate your results (in x1 week). This is important due to being on a potassium supplement in combination with spironolactone and Bumex. No need to redraw labs today. 4. You were started on a new medication, Buspar, during your admission. This medication helps with anxiety and can be taken twice daily, I have written you a prescription today for that. If you end up having success with this medication, you can get refills from your primary care provider. 5. Continue wearing your compression stocking to help with your leg swelling. Continue to check your blood pressure and blood sugar at home if applicable. Keep your scheduled appts with your primary care provider and any specialist that you may see. Return to the emergency department if you develop sudden shortness of breath, chest pain, a fever of greater than 101.5, or nausea, vomiting, abd pain, or diarrhea that does not go away. Follow-up with your primary care provider within 1-2 weeks, they will want to be updated on your inpatient stay in the hospital. Thank you for [facility] for your healthcare needs. Care Coordination: Patient to have [facility] resume services at discharge. They can be reached at [phone] if you have any questions; they will contact you to schedule their visits. RN Please fax discharge instructions to [phone]. Patient Instructions: Bumetanide (By mouth), Hypokalemia (GEN), Hypomagnesemia (GEN), Safe Use of Anticoagulants (DC) Patient Language: Angolan Stand Alone Forms: General Discharge Information Follow-up/Referrals: Miky Sorensen DO [Physician, Cardiology] - 1 Week Parminder Rojas MD [Primary Care Provider, Family Practice] - 2 Weeks Discharge Medications: New magnesium oxide 400 mg (241.3 mg magnesium) Tablet 400 mg PO BID Qty: 60 0RF bumetanide 1 mg Tablet 1 mg PO BID Qty: 90 0RF buspirone 5 mg tablet 5 mg PO BID Qty: 30 0RF spironolactone 25 mg Tablet 25 mg PO QAM Qty: 60 0RF Continued (DME) blood-glucose meter [Accu-Chek Guide Me Glucose Mtr] Misc See Rx Instructions .Route Qty: 1 0RF Rx Instructions: Check glucose TID before meals and PRN (DME) Accu-Chek Guide test strips Strip See Rx Instructions .Route Qty: 100 0RF Rx Instructions: Check glucose TID before meals and PRN (DME) lancets [Accu-Chek Softclix Lancets] Misc See Rx Instructions .Route Qty: 200 0RF Rx Instructions: Check glucose TID before meals and PRN Repatha SureClick 140 mg/mL pen injector 140 mg subcut .every 2 weeks Qty: 2 11RF Patient Comments: Once a Day Every Other Thursday cholecalciferol (vitamin D3) [Vitamin D3] 25 mcg (1,000 unit) capsule 25 mcg PO DAILY Pokonza 10 mEq packet 20 meq PO DAILY acetaminophen 500 mg capsule 500 mg PO Q6H PRN (Reason: fever or pain) biotin 5 mg capsule 5 mg PO DAILY pramipexole 0.5 mg tablet 0.5 mg PO HS Qty: 90 1RF metformin 500 mg tablet extended release 24 hr 1,000 mg PO QPM Qty: 90 0RF Rx Instructions: afternoon sotalol 80 mg Tablet 80 mg PO Q12HR 30 Days Qty: 60 0RF simethicone 80 mg Tablet,Chewable 80 mg PO QID PRN (Reason: Abdominal Cramping) Qty: 0 0RF potassium chloride 20 mEq packet 40 meq PO DAILY 7 Days Qty: 14 0RF insulin glargine [Lantus U-100 Insulin] 100 unit/mL solution 6 unit subcut DAILY Qty: 10 0RF pravastatin 10 mg tablet See Rx Instructions .ROUTE .COMPLEX Qty: 30 0RF Dose Instruction: TAKE 1 TABLET BY MOUTH EVERY DAY Rx Instructions: TAKE 1 TABLET BY MOUTH EVERY DAY pantoprazole 40 mg tablet,delayed release (DR/EC) 40 mg PO QAM Qty: 30 0RF insulin lispro [Humalog U-100 Insulin] 100 unit/mL solution 3 unit subcut TID Qty: 10 0RF rivaroxaban 20 mg tablet See Rx Instructions .ROUTE .COMPLEX Qty: 30 0RF Dose Instruction: TAKE 1 TABLET BY MOUTH EVERY DAY MUST ADMINISTER WITH EVENING MEAL Rx Instructions: TAKE 1 TABLET BY MOUTH EVERY DAY MUST ADMINISTER WITH EVENING MEAL Held losartan 25 mg tablet 25 mg PO DAILY Hold Instructions: Resume on 08/30/25. Hold until see Dr. Sorensen amlodipine 10 mg tablet 10 mg PO DAILY Hold Instructions: Resume on 08/30/25. Hold until see Dr. Sorensen arformoterol 15 mcg/2 mL solution for nebulization See Rx Instructions .ROUTE .COMPLEX Qty: 30 11RF Hold Instructions: Resume on 08/30/25. Hold until see Dr. Sorensen Dose Instruction: USE 1 VIAL IN NEBULIZER DAILY Rx Instructions: USE 1 VIAL IN NEBULIZER DAILY Discontinued magnesium oxide 250 mg magnesium tablet 250 mg PO DAILY furosemide 40 mg tablet See Rx Instructions .ROUTE .COMPLEX Qty: 30 0RF Dose Instruction: TAKE 1 TABLET BY MOUTH EVERY DAY Rx Instructions: TAKE 1 TABLET BY MOUTH EVERY DAY prednisone 10 mg tablet 10 mg PO DAILY 30 Days Qty: 30 0RF Other Ambulatory Orders: Complete Blood Count no Diff (Routine) Timeframe: 1 Week Location: Determined by Patient Ordered By: Lisa Smith Comprehensive Metabolic Panel (Routine) Timeframe: 1 Week Location: Determined by Patient Ordered By: Lisa Smith Date of admission: 08/18/25 12:45 Primary Care Provider: Parminder Rojas Admitting Provider: Trenton Brown Attending physician on admission: Trenton Brown Condition: Stable Quality VTE Prophylaxis VTE prophylaxis: pharmacologic ordered Hospitalist MIPS Heart Failure (Exclusion) Patient has history of Heart Transplant or Left Ventricular Assistive Device?: No IF YES, STOP HERE Heart Failure (Qualifier) Patient has current or prior documentation of LVEF less than or equal to 40%, or mod/servere depressed LVSF?: No IF NO, STOP HERE
== END 2025-08-23 13:20 | disposition home health service (06) | DRG 291 ==
LOC: ANHED 12:12 → ANH2MED 13:20
PROVIDERS: Nurse Practitioner; Nurse Practitioner Adult Health; Admitting Provider General Practice; Emergency Provider Emergency Medicine; PCP Family Medicine
DX: I11.0 Hypertensive heart disease with heart failure (principal); I50.33 Acute on chronic diastolic (congestive) heart failure; G95.20 Unspecified cord compression; J96.11 Chronic respiratory failure with hypoxia; E87.1 Hypo-osmolality and hyponatremia; I48.0 Paroxysmal atrial fibrillation; D86.9 Sarcoidosis, unspecified; E87.6 Hypokalemia; E83.42 Hypomagnesemia; E11.21 Type 2 diabetes mellitus with diabetic nephropathy; E78.5 Hyperlipidemia, unspecified; I25.10 Atherosclerotic heart disease of native coronary artery without angina pectoris; I27.20 Pulmonary hypertension, unspecified; J44.9 Chronic obstructive pulmonary disease, unspecified; K21.9 Gastro-esophageal reflux disease without esophagitis; Z99.81 Dependence on supplemental oxygen; Z79.01 Long term (current) use of anticoagulants; Z95.1 Presence of aortocoronary bypass graft; Z86.73 Personal history of transient ischemic attack (TIA), and cerebral infarction without residual deficits; Z95.5 Presence of coronary angioplasty implant and graft; Z96.653 Presence of artificial knee joint, bilateral
CPT/HCPCS: 36415; 36600; 71045; 71250; 80048; 80053; 82803; 82805; 82948; 83605; 83735; 83880; 85018; 85025; 85027; 87040; 93005; 94762; 96365; 96375; 97110; 97116; 97161; 97165; 97530; 97535; 99285; A9270; G0378; J1815; J1938; J3475; J3480; J7040; J7512